=== PATIENT | male | born 1960 | race African-American/Black ===

== ENCOUNTER 2021-08-16 12:47 | Inpatient (IN) | payer SELFPAY ==
[2021-08-16] MEDS ORDERED: METHYLPREDNISOLONE 125 MG INJ ONE (13:23)
[2021-08-16] MEDS ORDERED: LEVALBUTEROL 1.25 MG/3 ML NEB ONE (13:23)
[2021-08-16 14:11] LABS: Absolute Lymphocytes (CBC) 1.5 K/uL (0.7-4.9); Lymphocytes % 24.4 % (15.3-44.8); MPV 8.9 fL (7.6-11.3); RBC Red Blood Cell Count 4.34 M/uL (4.33-5.43)
[2021-08-16 14:15] LABS: Protime INR 1.17
[2021-08-16 14:26] LABS: BUN Blood Urea Nitrogen 17 mg/dL (7-18); Bicarbonate 24 mmol/L (21-32); Glucose Level 124 mg/dL (74-106); Magnesium 2.3 mg/dL (1.8-2.4); NT PRO-BNP 5845 pg/mL (<125); Potassium 3.8 mmol/L (3.5-5.1); Sodium Level 140 mmol/L (136-145); Troponin (Emerg Dept Use Only) < 0.02 ng/mL (0.0-0.045)
--- NOTE | 2021-08-16 14:33 | RAD REPORT ---
EXAM DESCRIPTION: Deepika Single View08/16/2021 2:25 pm CLINICAL HISTORY: cough COMPARISON: none FINDINGS: Mild right basilar lung opacities. There may be a small pleural effusion Left lung appears clear of acute infiltrate. Heart is mildly to moderately enlarged IMPRESSION: Mild right pulmonary opacities may represent pneumonia
--- NOTE | 2021-08-16 15:14 | RAD REPORT ---
EXAM DESCRIPTION: CT - Chest For Pe Angio - 08/16/2021 2:47 pm CLINICAL HISTORY: sob COMPARISON: August 16, 2021 chest x-ray TECHNIQUE: Dynamically enhanced axial 3 mm thick images of the chest were obtained during administra tion of <100> mL Isovue 370 IV contrast. Coronal and oblique reconstruction images were generated and reviewed. Exam utilizes a protocol for optimal evaluation of pulmonary arterial tree. Maximum intensity projections 3D imaging was utilized All CT scans are performed using dose optimization technique as appropriate and may include automated exposure control or mA/KV adjustment according to patient size. FINDINGS: A pulmonary embolus is not seen. A thoracic aortic aneurysm is not noted. Mild mediastinal and hilar lymphadenopathy A pericardial effusion is not seen. Moderate loculated right pleural effusion. Right middle and right lower lobe opacities. Multiple sclerotic vertebral bodies. IMPRESSION: Negative for a pulmonary embolism. Moderate loculated right pleural effusion Right middle and right lower lobe opacities may represent pneumonia, atelectasis or mass. This should be followed until it has cleared Mild mediastinal and hilar lymphadenopathy Multiple sclerotic vertebral bodies may indicate metastatic disease or metabolic disturbance
[2021-08-16] MEDS ORDERED: CEFTRIAXONE 1000 MG/VIAL ONE (15:34)
[2021-08-16] MEDS ORDERED: NA CHLORIDE 0.9% 50 ML ONE (15:34)
--- NOTE | 2021-08-16 15:43 | ER ---
Nurse's Notes [facility] Name: David Felton Age: 61 yrs Sex: Male : 1960 Arrival Date: 08/16/2021 Time: 12:51 Bed 13 Private MD: Diagnosis: Pneumonia, unspecified organism;Pleural effusion, not elsewhere classified;Hypoxemia Presentation: 08/16 12:59 Chief complaint: Patient states: SOB, wheezing for 4 days. wanted him checked. No ll1 fever. Coronavirus screen: Vaccine status: Patient reports being unvaccinated. Client denies travel out of the [place] in the last 14 days. congestion, cough unrelated to allergies, shortness of breath, Client presents with at least one sign or symptom that may indicate coronavirus-19. Standard/surgical mask placed on the client. Ebola Screen: Patient denies travel to an Ebola-affected area in the 21 days before illness onset. Initial Sepsis Screen: Does the patient meet any 2 criteria? No. Patient's initial sepsis screen is negative. Does the patient have a suspected source of infection? Yes: Productive cough/pneumonia. Risk Assessment: Do you want to hurt yourself or someone else? Patient reports no desire to harm self or others. Onset of symptoms was August 12, 2021. 12:59 Method Of Arrival: Ambulatory ll1 12:59 Acuity: JERO 3 ll1 Triage Assessment: 19:10 General: Appears in no apparent distress. General: Behavior is calm, cooperative. mr2 Respiratory: Respiratory: No deficits noted. Historical: - Allergies: 13:00 No Known Allergies; ll1 - PMHx: 13:00 Hypertensive disorder; ll1 - PSHx: 13:00 diverticulitis SX; ll1 - Immunization history:: Client reports having NOT received the Covid vaccine. Flu vaccine is not up to date. - Social history:: Smoking status: Patient reports the use of cigarette tobacco products, cigars, . - Family history:: not pertinent. - Hospitalizations: : No recent hospitalization is reported. Screenin:41 Abuse screen: Denies threats or abuse. Nutritional screening: No deficits noted. tw2 Tuberculosis screening: No symptoms or risk factors identified. Fall Risk None identified. Assessment: 13:30 General: Appears in no apparent distress. comfortable, Behavior is calm, cooperative. eo2 Pain: Denies pain. Neuro: No deficits noted. Denies dizziness, headache. Cardiovascular: Denies chest pain, palpitations, Heart tones S1 S2. Respiratory: Airway is patent Respiratory effort is even, unlabored, Respiratory pattern is regular, Breath sounds with rhonchi bilaterally. Onset: The symptoms/episode began/occurred Pt reports SOB x 2-3 days. GI: Reports vomiting, vomiting after coughing today, otherwise presently denies N/V. : No signs and/or symptoms were reported regarding the genitourinary system. EENT: Reports COUGH X 3-4 DAYS- productive per pt. 13:30 Derm: Skin is pale, pt noted to be pale to the face. eo2 14:35 Cardiovascular: Rhythm is sinus rhythm. eo2 16:05 Reassessment: Patient states symptoms have not improved. increased work of breathing, eo2 increased rattling/wheezing, Osvaldo TRINIDAD at bedside and aware. 18:51 Reassessment: Pt sleeping, family at bedside informed of bed assignment. eo2 Vital Signs: 12:59 BP 189 / 92; Pulse 86; Resp 24; Temp 97.9; Pulse Ox 92% ; Height 6 ft. 2 in. (187.96 ll1 cm); Pain 0/10; 14:30 BP 170 / 74; Pulse 100; Resp 24; Pulse Ox 100% ; Pain 0/10; eo2 15:30 BP 173 / 74; Pulse 78; Resp 24; Pulse Ox 100% ; tw2 16:00 BP 170 / 77; Pulse 82; Resp 22; Pulse Ox 99% 2 lpm ; Pain 0/10; eo2 17:00 BP 175 / 81; Pulse 87; Resp 27; Pulse Ox 100% 2 lpm ; eo2 17:30 BP 160 / 75; Pulse 89; Resp 27; Pulse Ox 100% 2 lpm ; eo2 18:26 BP 151 / 67; Pulse 82; Resp 28; Pulse Ox 99% on 2 lpm NC; eo2 ED Course: 12:51 Patient arrived in ED. as 13:00 Triage completed. ll1 13:01 Arm band placed on. ll1 13:06 Patient placed in an exam room, on a stretcher. ll1 13:06 Bed in low position. Call light in reach. Adult w/ patient. environmental services associate on. Pulse tw2 ox on. NIBP on. 13:08 Daniel Garcia MD is Attending Physician. rn 13:40 EKG done, by ED staff, reviewed by Daniel Garcia MD. 3 13:45 First set of blood cultures drawn by me. Inserted saline lock: 20 gauge in left 3 antecubital area, using aseptic technique. Blood collected. 13:49 Initial lab(s) drawn, by me, sent to lab. Second set of blood cultures drawn by me. 3 14:07 Princess Gilmore, RN is Primary Nurse. eo2 14:25 XRAY CXR (1 view) In Process Unspecified. EDMS 14:[address] via wheelchair. eo2 14:48 CT Chest For PE Angio In Process Unspecified. EDMS 15:42 Lamonte Calabrese is Hospitalizing Provider. rn 16:05 Notified the admitting physician of abnormal vital signs. pt with increased work of eo2 breathing, Dr. Calabrese at bedside. 19:00 Report given to Asif ROMERO. eo2 19:10 No provider procedures requiring assistance completed. Patient admitted, IV remains in mr2 place. Administered Medications: 14:21 Drug: SOLU-Medrol (methylPrednisoLONE) 125 mg Route: IVP; Site: left antecubital; eo2 14:42 Follow up: Response: No adverse reaction eo2 14:21 Drug: Xopenex (levalbuterol) 1.25 mg Route: Inhalation; eo2 14:41 Follow up: Response: No adverse reaction eo2 16:00 Drug: Rocephin (cefTRIAXone) 1 grams Route: IV; Rate: calculated rate; Site: left eo2 antecubital; 16:30 Follow up: Response: No adverse reaction; IV Status: Completed infusion; IV Intake: 85ssey2 16:45 Drug: Zithromax (azithromycin) 500 mg Route: IVPB; Infused Over: 1 hrs; Site: left tw2 antecubital; 17:51 Follow up: Response: No adverse reaction; IV Status: Completed infusion; IV Intake: eo2 250ml Intake: 16:30 IV: 50ml; Total: 50ml. tw2 17:51 IV: 250ml; Total: 300ml. eo2 Outcome: 15:42 Decision to Hospitalize by Provider. rn 19:11 Admitted to Med/surg mr2 19:11 Condition: stable 19:11 Instructed on the need for admit. 19:34 Patient left the ED. mr2 Signatures: Dispatcher [employer] EDTrudy Tee Roman, MD MD rn Sultana Ozuna RN RN tw2 Grace Hadley [facility] sAhly Ga RN RN ll1 Asif Corona RN RN mr2 Princess Gilmore RN RN eo2 Corrections: (The following items were deleted from the chart) 13:06 12:59 BP 189 / 92; Pulse 86bpm; Resp 24bpm; Pulse Ox 94%; Temp 97.9F; Height 6 ft. 2 ll1 in.; Pain 0/10; ll1 14:30 14:22 General: eo2 eo2 17:02 15:30 BP 173 / 74; Pulse 78bpm; Resp 17bpm; Pulse Ox 100%; tw2 tw2 18:55 18:26 BP 103 / 63; Pulse 76bpm; Resp 24bpm; Pulse Ox 100% 2 lpm Nasal Cannula; tw2 eo2
--- NOTE | 2021-08-16 15:43 | EDPHYS ---
Physician Documentation [facility] Name: David Felton Age: 61 yrs Sex: Male : 1960 Arrival Date: 08/16/2021 Time: 12:51 Bed 13 Private MD: ED Physician Daniel Garcia HPI: 08/16 13:17 This 61 yrs old Black Male presents to ER via Ambulatory with complaints of Shortness rn Of Breath. 15:26 The patient has shortness of breath at rest. Onset: The symptoms/episode began/occurred rn 3 day(s) ago. Duration: The symptoms are continuous. The patient's shortness of breath is aggravated by light activity, is alleviated by nothing. Associated signs and symptoms: Pertinent positives: productive cough, Pertinent negatives: chest pain, fever, hemoptysis. Severity of symptoms: At their worst the symptoms were moderate in the emergency department the symptoms are unchanged. The patient has not experienced similar symptoms in the past. The patient has not recently seen a physician. Pt reports cough and sob for 3 days, no fever, + worse with exertion. + smoker. No diagnosis of COPD or CHF. No known sick contacts. No congestion. Not COVID vaccinated. . Historical: - Allergies: 13:00 No Known Allergies; ll1 - PMHx: 13:00 Hypertensive disorder; ll1 - PSHx: 13:00 diverticulitis SX; ll1 - Immunization history:: Client reports having NOT received the Covid vaccine. Flu vaccine is not up to date. - Social history:: Smoking status: Patient reports the use of cigarette tobacco products, cigars, . - Family history:: not pertinent. - Hospitalizations: : No recent hospitalization is reported. ROS: 15:26 Constitutional: Negative for fever, chills Eyes: Negative for injury, pain, redness, rn and discharge, Neck: Negative for injury, pain, and swelling, Cardiovascular: Negative for chest pain, palpitations, and edema, Respiratory: + cough and sob Abdomen/GI: Negative for abdominal pain, nausea, vomiting, diarrhea, and constipation, Back: Negative for injury and pain, : Negative for injury, bleeding, discharge, and swelling, MS/Extremity: Negative for injury and deformity, Skin: Negative for injury, rash, and discoloration, Neuro: Negative for headache, weakness, numbness, tingling, and seizure. Exam: 15:26 Constitutional: Thin male, + mild tachypnea Head/Face: Normocephalic, atraumatic. rn Eyes: Periorbital areas with no swelling, redness, or edema. ENT: dry MM, no stridor Cardiovascular: Tachycardic, regular, no pulse deficit Respiratory: + mild to mderate tachypnea, no retractions, coarse bilateral breath sounds Abdomen/GI: soft, non-tender Skin: Warm, dry MS/ Extremity: Pulses equal, no cyanosis. Neuro: Awake and alert, GCS 15 Vital Signs: 12:59 BP 189 / 92; Pulse 86; Resp 24; Temp 97.9; Pulse Ox 92% ; Height 6 ft. 2 in. (187.96 ll1 cm); Pain 0/10; 14:30 BP 170 / 74; Pulse 100; Resp 24; Pulse Ox 100% ; Pain 0/10; eo2 15:30 BP 173 / 74; Pulse 78; Resp 24; Pulse Ox 100% ; tw2 16:00 BP 170 / 77; Pulse 82; Resp 22; Pulse Ox 99% 2 lpm ; Pain 0/10; eo2 17:00 BP 175 / 81; Pulse 87; Resp 27; Pulse Ox 100% 2 lpm ; eo2 17:30 BP 160 / 75; Pulse 89; Resp 27; Pulse Ox 100% 2 lpm ; eo2 18:26 BP 151 / 67; Pulse 82; Resp 28; Pulse Ox 99% on 2 lpm NC; eo2 MDM: 13:08 Patient medically screened. rn 15:39 Differential diagnosis: Anemia Bronchitis Chronic Obstructive Pulmonary Disease rn Myocardial Infarction pneumonia, Pneumothorax. 15:40 Data reviewed: vital signs, nurses notes, lab test result(s), EKG, radiologic studies, rn CT scan, plain films, and as a result, I will admit patient. Data interpreted: Pulse oximetry: on room air is 90 %. Interpretation: hypoxia. Plan: O2 by NC applied. Counseling: I had a detailed discussion with the patient and/or guardian regarding: the historical points, exam findings, and any diagnostic results supporting the discharge/admit diagnosis, lab results, radiology results, the need for further work-up and treatment in the hospital. Admission orders: after a detailed discussion of the patient's condition and case, the admit orders are written by me. ED course: Consulted with Dr. Humphries to make sure he was comfortable keeping patient with multifocal pneumonia, possible lung mass and loculated effusion, states okay keeping here as patient does not seem septic and does not think needs immediate intervention. Will admit to hospitalist service. Spoke with Dr. Calabrese for admission. 08/16 13:14 Order name: BMP rn 08/16 13:14 Order name: Blood Culture Adult (2) rn 08/16 13:14 Order name: CBC with Diff; Complete Time: 14:32 rn 08/16 13:14 Order name: D-Dimer; Complete Time: 14:32 rn 08/16 13:14 Order name: Magnesium; Complete Time: 14:32 rn 08/16 13:14 Order name: NT PRO-BNP; Complete Time: 14:32 rn 08/16 13:14 Order name: PT-INR; Complete Time: 14:32 rn 08/16 13:14 Order name: Ptt, Activated; Complete Time: 14:32 rn 08/16 13:14 Order name: Troponin (emerg Dept Use Only); Complete Time: 14:32 rn 08/16 13:15 Order name: Basic Metabolic Panel; Complete Time: 14:32 EDMA 08/16 13:17 Order name: Procalcitonin rn 08/16 13:17 Order name: Procalcitonin EDMA 08/16 13:14 Order name: XRAY CXR (1 view); Complete Time: 15:17 rn 15 13:14 Order name: EKG; Complete Time: 13:15 rn 08/16 13:14 Order name: Cardiac monitoring; Complete Time: 13:59 rn 08/16 13:14 Order name: EKG - Nurse/Tech; Complete Time: 13:58 rn 15 13:14 Order name: IV Saline Lock; Complete Time: 13:58 rn 15 13:14 Order name: Labs collected and sent; Complete Time: 13:58 rn 08/16 13:14 Order name: O2 Per Protocol; Complete Time: 13:58 rn 08/16 13:14 Order name: O2 Sat Monitoring; Complete Time: 13:59 rn 15 14:34 Order name: CT Chest For PE Angio; Complete Time: 15:17 rn 08/16 15:33 Order name: COVID-19/FLU A+B EDMA 08/16 17:00 Order name: Urine Dipstick-Ancillary EDMS Administered Medications: 14:21 Drug: SOLU-Medrol (methylPrednisoLONE) 125 mg Route: IVP; Site: left antecubital; eo2 14:42 Follow up: Response: No adverse reaction eo2 14:21 Drug: Xopenex (levalbuterol) 1.25 mg Route: Inhalation; eo2 14:41 Follow up: Response: No adverse reaction eo2 16:00 Drug: Rocephin (cefTRIAXone) 1 grams Route: IV; Rate: calculated rate; Site: left eo2 antecubital; 16:30 Follow up: Response: No adverse reaction; IV Status: Completed infusion; IV Intake: [id number] 16:45 Drug: Zithromax (azithromycin) 500 mg Route: IVPB; Infused Over: 1 hrs; Site: left tw2 antecubital; 17:51 Follow up: Response: No adverse reaction; IV Status: Completed infusion; IV Intake: eo2 250ml Disposition Summary: 08/16/21 15:42 Hospitalization Ordered Hospitalization Status: Inpatient Admission rn Provider: Lamonte Calabrese rn Location: Telemetry/[facility]Sur (Inpatient) rn Condition: Stable rn Problem: new rn Symptoms: have improved rn Bed/Room Type: Standard rn Room Assignment: 410(08/16/21 18:25) ss Diagnosis - Pneumonia, unspecified organism rn - Pleural effusion, not elsewhere classified rn - Hypoxemia rn Forms: - Medication Reconciliation Form rn - SBAR form rn Signatures: Dispatcher [employer] EDMA Daniel Garcia MD MD rn Smirch, Shelby, RN RN ss Sultana Ozuna RN RN tw2 Ashly Ga RN RN ll1 Princess Gilmore, NICK RN eo2 Corrections: (The following items were deleted from the chart) 15:33 13:15 SARS-COV-2 RT PCR+MOL.LAB.BRZ ordered. EDMS EDMS 15:33 13:15 Influenza Screen (A \T\ B)+BA.LAB.BRZ ordered. EDMS EDMS 18:25 15:42 rn ss
[2021-08-16] MEDS ORDERED: AZITHROMYCIN 500 MG INJ IVPB ONE (16:10)
[2021-08-16] MEDS ORDERED: NA CHLORIDE 0.9% 250 ML ONE (16:10)
[2021-08-16 16:16] LABS: SARS-COV-2 RT PCR NEGATIVE (NEGATIVE)
--- NOTE | 2021-08-16 16:44 | P.HP ---
Certification for Inpatient Patient admitted to: Inpatient With expected LOS: >2 Midnights Practitioner: I am a practitioner with admitting privileges, knowledge of patient current condition, hospital course, and medical plan of care. Services: Services provided to patient in accordance with Admission requirements found in Title 42 Section 412.3 of the Code of Federal Regulations Patient History Date of Service: 08/16/21 Reason for admission: Shortness of breath History of Present Illness: 61-year-old gentleman with a remote history of noninsulin-dependent diabetes presented to the emergency department due to progressive shortness of breath and wheezing. Patient reports shortness of breath onset 1 week ago. His spouse told him to come to the ED to find out why he is wheezing. No reported fever. Patient endorsed nonproductive cough, no chest pain, no hemoptysis. He denies any weight loss. CT chest done in the emergency department demonstrate multiple dense opacities in the bilateral lobes who could be pneumonia, lung mass not excluded. CT chest also demonstrates loculated pleural effusion. Patient given breathing treatment and IV steroid in the ED, pulmonology-Dr. Humphries informed recommended admission here for further management. - Past Medical/Surgical History -: Prior history of diabetes-patient states his diabetes has resolved. -: Colon resection-unknown reason. - Family History Mother -: Heart disease, Stroke - Social History Smoking Status: Current every day smoker (Smokes cigar. Used to smoke cigarette and 1 pack would last 3 days.) Alcohol use: Yes Place of Residence: Home Review of Systems Other: Patient denies any abdominal pain, no headache, no nausea or vomiting, no problem with urination. Except as documented, all other systems reviewed and negative. Physical Examination - Physical Exam General: Alert, In no apparent distress, Oriented x3 HEENT: Mucous membr. moist/pink, Sclerae nonicteric Neck: Supple, JVD not distended Respiratory: Normal air movement, Crackles/rales (Bilateral), Expiratory wheezes (Mild scattered wheezes.) Cardiovascular: Regular rate/rhythm, Edema (1+ bilateral lower extremity edema), Systolic murmur Capillary refill: <2 Seconds Gastrointestinal: Normal bowel sounds, Soft and benign, Non-distended, No tenderness Musculoskeletal: No clubbing, No tenderness Integumentary: No rashes, No erythema Neurological: Normal speech, Normal strength at 5/5 x4 extr, Cranial nerves 3-12 intact Lymphatics: No axilla or inguinal lymphadenopathy - Studies Laboratory Data (last 24 hrs) 08/16/21 13:49: PT 13.5 H, INR 1.17, APTT 40.6 H 08/16/21 13:49: WBC 6.10, Hgb 11.6 L, Hct 36.0 L, Plt Count 209 08/16/21 13:49: Sodium 140, Potassium 3.8, BUN 17, Creatinine 1.42 H, Glucose 124 H, Magnesium 2.3 Assessment and Plan - Problems (Diagnosis) (1) Pneumonia Current Visit: Yes Status: Acute (2) Pleural effusion Current Visit: Yes Status: Acute (3) Anemia Current Visit: Yes Status: Acute (4) Acute renal failure Current Visit: Yes Status: Acute (5) Peripheral edema Current Visit: Yes Status: Acute - Plan Admit to the medical floor. Patient with dense infiltrates, lung malignancy not ruled out. Patient reports history of colon lesions. He underwent colon resection about 30 years ago. He stated he did not followed up after the colon resection as he should. High suspicion for malignancy. Start IV antibiotics-Zosyn and Levaquin Consult to pulmonary Considering US guided diagnostic thoracentesis. Pain management as needed Bronchodilators Chest physiotherapy. Trial of IV Lasix. Check LFT. - Advance Directives Does patient have a Living Will: No Does patient have a Durable POA for Healthcare: No
[2021-08-16 17:00] LABS: Urine Blood 1+ (Negative); Urine Glucose Negative (Negative); Urine Protein 3+ (Negative)
[2021-08-16] MEDS ORDERED: Levofloxacin 750mg IV 750 MG/150 ML BAG IV SCH ×2 (20:00→20:08)
[2021-08-16] MEDS ORDERED: NA CHLORIDE 0.9% 1,000 ML IV SCH (20:08)
[2021-08-16] MEDS ORDERED: MORPHINE 2 MG/ML SYR IV PRN (20:08)
[2021-08-16] MEDS ORDERED: ONDANSETRON 4 MG/2 ML VIAL IV PRN (20:08)
[2021-08-16] MEDS: INSULIN -REGULAR HUMAN 50 UNIT/0.5 ML ML SQ SCH ×2 (20:08→21:00)
[2021-08-16] MEDS ORDERED: ACETAMINOPHEN 500 MG TAB PO PRN (20:08)
[2021-08-16 20:25] VITALS: BMI 25.2
[2021-08-16] MEDS: IPRATROPIUM BROM 0.5MG/2.5ML NEB SCH ×2 (20:25→23:15)
[2021-08-16 21:03] LABS: Albumin 2.6 g/dL (3.4-5.0); Bilirubin Total 0.2 mg/dL (0.2-1.0); Potassium 3.6 mmol/L (3.5-5.1); Protein, Total 7.1 g/dL (6.4-8.2)
[2021-08-16] MEDS ORDERED: NA CHLORIDE 0.9% 100 ML ONE (22:12)
[2021-08-16] MEDS ORDERED: PIPERACIL/TAZO 3.375 GM VIAL IV ONE (22:14)
[2021-08-16] MEDS: PIPER TAZO 3.375 GM in NA CHLORIDE 0.9% 100 ML IV SCH (22:18)
[2021-08-16] MEDS: ALBUTEROL 2.5 MG/3 ML NEB SOL NEB PRN (23:15)
[2021-08-17] MEDS: PIPER TAZO 3.375 GM in NA CHLORIDE 0.9% 100 ML IV SCH ×2 (01:00→10:22)
[2021-08-17] MEDS: ALBUTEROL 2.5 MG/3 ML NEB SOL NEB PRN (03:45)
[2021-08-17] MEDS: IPRATROPIUM BROM 0.5MG/2.5ML NEB SCH ×3 (03:45→12:00)
[2021-08-17 04:16] LABS: Absolute Lymphocytes (CBC) 0.4 K/uL (0.7-4.9); Hematocrit 33.2 % (39.6-49.0); Lymphocytes % 7.1 % (15.3-44.8); MPV 9.2 fL (7.6-11.3); RBC Red Blood Cell Count 4.01 M/uL (4.33-5.43)
[2021-08-17 04:34] LABS: Magnesium 1.9 mg/dL (1.8-2.4); Phosphorus 3.5 mg/dL (2.5-4.9)
[2021-08-17 05:03] LABS: Blood Morphology Comment NOTED (NOT SEEN); Burr Cells 1+; Platelet Estimate ADEQ
[2021-08-17] MEDS ORDERED: HYDRALAZINE HCL 20 MG/ML VIAL IV PRN (07:25)
[2021-08-17] MEDS: INSULIN -REGULAR HUMAN 50 UNIT/0.5 ML ML SQ SCH ×4 (07:30→20:59)
[2021-08-17] MEDS ORDERED: INFLUENZA VACCINE (for 6+ mo) 0.5 ML DOSE IMVAC ONE (08:00)
[2021-08-17] MEDS ORDERED: POTASSIUM CL SA 10 MEQ TAB PO ONE (09:00)
[2021-08-17] MEDS: AMLODIPINE 10 MG TAB PO SCH (10:25)
[2021-08-17] MEDS: ENOXAPARIN 40 MG/0.4 ML SQ SCH (10:25)
--- NOTE | 2021-08-17 11:39 | P.PN ---
Subjective Date of Service: 08/17/21 Chief Complaint: Shortness of breath Patient reports improvement in his shortness of breath. He was seen comfortable on 2 L of oxygen by nasal cannula. No fever. Physical Examination - Vital Signs Temperature: 97.5 F Blood Pressure: 157/73 Pulse: 89 Respirations: 20 Pulse Ox (%): 96 - Studies Laboratory Data (last 24 hrs) 08/16/21 13:49: PT 13.5 H, INR 1.17, APTT 40.6 H 08/16/21 13:49: WBC 6.10, Hgb 11.6 L, Hct 36.0 L, Plt Count 209 08/16/21 13:49: Sodium 140, Potassium 3.8, BUN 17, Creatinine 1.42 H, Glucose 124 H, Magnesium 2.3 Assessment And Plan - Current Problems (Diagnosis) (1) Pneumonia Current Visit: Yes Status: Acute (2) Pleural effusion Current Visit: Yes Status: Acute (3) Anemia Current Visit: Yes Status: Acute (4) Acute renal failure Current Visit: Yes Status: Acute (5) Peripheral edema Current Visit: Yes Status: Acute - Plan Physical examination General: Alert, In no apparent distress. Neck: Supple, JVD not distended Respiratory: Normal air movement, Crackles/rales (Bilateral). Cardiovascular: Regular rate/rhythm, Edema (1+ bilateral lower extremity edema), Systolic murmur Capillary refill: <2 Seconds Gastrointestinal: Normal bowel sounds, Soft and benign, Non-distended, No tenderness Integumentary: No rashes, No erythema Neurological: Normal speech, Normal strength at 5/5 x4 extr, Cranial nerves 3-12 intact Plan: Admit to the medical floor. Patient with dense infiltrates, lung malignancy not ruled out. High suspicion for malignancy. Continue IV antibiotics-Zosyn and Levaquin Consult to pulmonary US guided diagnostic thoracentesis ordered. Pleural fluid status Pain management as needed Bronchodilators Chest physiotherapy. IV Lasix.
--- NOTE | 2021-08-17 12:15 | P.CNS ---
Date of Consult: 08/17/21 Reason for Consult: Respiratory distress septic shock Chief Complaint: Shortness of breath History of Present Illness: Patient is 61 years of age became acutely ill more short of breath in the last week or so no prior history of cardiopulmonary problems apart from hypertension is doing better have a loculated effusion on the right side no active evidence of clinical sepsis he denies any urinary or abdominal complain does not have a cough or chest pain Allergies No Known Allergies Allergy (Unverified 08/16/21 20:01) Home Medications: NK [No Home Meds] 08/16/21 - Past Medical/Surgical History Diabetic: No -: Prior history of diabetes-patient states his diabetes has resolved. -: Colon resection-unknown reason. - Family History Mother Medical History: Heart disease, Stroke - Social History Alcohol use: No CD- Drugs: No Caffeine use: No Place of Residence: Home Review of Systems 10-point ROS is otherwise unremarkable Respiratory: Shortness of Breath Physical Examination Temp Pulse Resp BP Pulse Ox 97.5 F 89 20 157/73 H 96 08/17/21 11:39 08/17/21 11:39 08/17/21 11:39 08/17/21 11:39 08/17/21 11:39 General: Alert, Oriented x3 HEENT: Atraumatic Neck: Supple Respiratory: Crackles/rales, Expiratory wheezes Cardiovascular: No edema, Normal S1 S2, Other (Neck venous pressure is elevated) Gastrointestinal: Normal bowel sounds, Soft and benign Laboratory Data (last 24 hrs) 08/16/21 13:49: PT 13.5 H, INR 1.17, APTT 40.6 H 08/16/21 13:49: WBC 6.10, Hgb 11.6 L, Hct 36.0 L, Plt Count 209 08/16/21 13:49: Sodium 140, Potassium 3.8, BUN 17, Creatinine 1.42 H, Glucose 124 H, Magnesium 2.3 - Problems (1) Congestive heart failure Current Visit: Yes Status: Acute Plan: Strongly suspect patient has congestive heart failure does have a small loculated effusion symptoms are acute is no evidence of sepsis or pneumonia white count is normal BNP is very elevated renal function is abnormal patient has a history of hypertension I suggest diuresis for now increase Lasix as tolerated echocardiogram is pending DC Levaquin and Zosyn start him on p.o. Augmentin currently doing well off oxygen thoracentesis not indicated right now not sure is taking any medication at home is being treated for hypertension Qualifiers: Heart failure chronicity: unspecified
[2021-08-17] MEDS ORDERED: FUROSEMIDE 20 MG/ 2ML VIAL IV SCH (12:17)
[2021-08-17] MEDS ORDERED: IPRATROPIUM BROM 0.5MG/2.5ML NEB PRN (12:24)
[2021-08-17] MEDS: FUROSEMIDE 40 MG/4 ML VIAL IV SCH (14:17)
[2021-08-17] MEDS ORDERED: Levofloxacin 750mg IV 750 MG/150 ML BAG IV SCH ×2 (20:00→21:00)
[2021-08-17] MEDS: AMOX/K CLAV 875 MG TAB PO SCH (20:58)
[2021-08-18 05:41] LABS: Potassium 3.9 mmol/L (3.5-5.1)
[2021-08-18] MEDS ORDERED: POTASSIUM CL SA 10 MEQ TAB PO ONE (07:03)
[2021-08-18] MEDS: INSULIN -REGULAR HUMAN 50 UNIT/0.5 ML ML SQ SCH ×4 (07:30→20:06)
--- NOTE | 2021-08-18 07:58 | ECHO ---
HEIGHT: 6 ft 2 in WEIGHT: 196 lb 11.2 oz DATE OF STUDY: 08/17/[address]: artur álvarez 2-DIMENSIONAL: YES M.MODE: YES DOPPLER: YES COLOR FLOW: YES TDS: NO PORTABLE: NO DEFINITY: NO BUBBLE STUDY: NO DIAGNOSIS: MALIGNANT HYPERTENSION CARDIAC HISTORY: CATHERIZATION: NO SURGERY: NO PROSTHETIC VALVE: NO PACEMAKER: NO MEASUREMENTS (cm) DIASTOLIC (NORMALS) SYSTOLIC (NORMALS) IVSd 1.5 (0.6-1.2) LA Diam 3.9 (1.9-4.0) LVEF 64% LVIDd 4.8 (3.5-5.7) LVIDs 3.1 (2.0-3.5) %FS 35% LVPWd 1.2 (0.6-1.2) Ao Diam 2.9 (2.0-3.7) 2 DIMENSIONAL ASSESSMENT: RIGHT ATRIUM: NORMAL LEFT ATRIUM: NORMAL RIGHT VENTRICLE: NORMAL LEFT VENTRICLE: NORMAL TRICUSPID VALVE: MITRAL VALVE: PULMONIC VALVE: NORMAL AORTIC VALVE: PERICARDIAL EFFUSION: NONE AORTIC ROOT: NORMAL LEFT VENTRICULAR WALL MOTION: NORMAL DOPPLER/COLOR FLOW: SEE BELOW COMMENTS: NORMAL LEFT VENTRICULAR EJECTION FRACTION 60-65%. NORMAL WALL MOTION. MODERATE TO SEVERE MITRAL REGURGITATION AND LIKELY SEVERE MITRAL STENOSIS, RECOMMEND RONI. MILD AORTIC REGURGITATION WITH MODERATE CALCIFICATION OF THE VALVES. TECHNOLOGIST: Tyler LACEY
[2021-08-18] MEDS: AMOX/K CLAV 875 MG TAB PO SCH ×3 (08:09→20:08)
[2021-08-18] MEDS: FUROSEMIDE 40 MG/4 ML VIAL IV SCH ×2 (08:09→17:03)
[2021-08-18] MEDS: AMLODIPINE 10 MG TAB PO SCH (08:09)
[2021-08-18] MEDS: ENOXAPARIN 40 MG/0.4 ML SQ SCH (08:10)
--- NOTE | 2021-08-18 08:46 | RAD REPORT ---
EXAM DESCRIPTION: US - Renal Ultrasound-Complete - 08/18/2021 12:48 am CLINICAL HISTORY: Renal failure Acute renal failure, flank pain COMPARISON: Chest For Pe Angio dated 08/16/2021 FINDINGS: Both kidneys are echogenic. The right kidney measures 9.8 x 5.6 x 4.7 cm. No hydronephrosis, focal mass or perinephric fluid. The left kidney measures 9.9 x 5.3 x 4.9 cm.. No hydronephrosis, focal mass or perinephric fluid. The urinary bladder is incompletely distended without gross abnormality seen. IMPRESSION: Echogenic kidneys bilaterally most compatible with medical renal disease.
--- NOTE | 2021-08-18 10:33 | RAD REPORT ---
EXAM DESCRIPTION: US - Thoracentesis w/ US Guide - 08/18/2021 9:43 am CLINICAL HISTORY: Pleural effusion. Loculated right pleural effusion COMPARISON: Renal Ultrasound-Complete dated 08/18/2021; Chest For Pe Angio dated 08/16/2021; Chest S [place] dated 08/16/2021 FINDINGS: Preoperative diagnosis: Right pleural effusion. Post operative diagnosis: Same Conscious Sedation: None. Estimated blood loss: Minimal Specimens:A small volume of fluid was sent for requested lab studies. The patient was placed in the upright recumbent position and the right posterior chest was prepped an d draped in the usual sterile fashion. 1% Lidocaine was infiltrated into the soft tissues for local anesthesia. Under sonographic guidance, a thoracentesis needle and 6 Indonesian catheter was advanced in to the right pleural space. Approximately 1300 cc yellow fluid was aspirated. Samples were sent to pa thology for requested analysis. The patient tolerated the procedure without immediate complication an d transferred to the floor in stable condition. IMPRESSION: Successful ultrasound-guided thoracentesis as detailed.
[2021-08-18 12:30] LABS: Body Fluid WBC 1015 /mm^3
[2021-08-18 12:31] LABS: Appearance SLT. TURBID (CLEAR); Body Fluid Source PLEURAL; Color of fluid Yellow (COLORLESS)
--- NOTE | 2021-08-18 16:19 | P.PN ---
Subjective Date of Service: 08/18/21 Chief Complaint: Shortness of breath Patient states he is doing much better today. He is maintained on 2 L oxygen by nasal cannula with good oxygen saturation. Physical Examination - Vital Signs Temperature: 97.5 F Blood Pressure: 175/73 Pulse: 85 Respirations: 18 Pulse Ox (%): 100 Assessment And Plan - Current Problems (Diagnosis) (1) Pneumonia Current Visit: Yes Status: Acute (2) Pleural effusion Current Visit: Yes Status: Acute (3) Anemia Current Visit: Yes Status: Acute (4) Acute renal failure Current Visit: Yes Status: Acute (5) Peripheral edema Current Visit: Yes Status: Acute - Plan Physical examination General: Alert, In no apparent distress. Neck: Supple, JVD not distended Respiratory: Normal air movement, Crackles/rales (Bilateral). Cardiovascular: Regular rate/rhythm, Edema (1+ bilateral lower extremity edema), Systolic murmur Capillary refill: <2 Seconds Gastrointestinal: Normal bowel sounds, Soft and benign, Non-distended, No tenderness Integumentary: No rashes, No erythema Neurological: Normal speech, Normal strength at 5/5 x4 extr, Cranial nerves 3-12 intact Plan: Patient with dense infiltrates, lung malignancy not ruled out. High suspicion for malignancy. Status post US thoracentesis. Pleural fluid is turbid with high WBC count. This could be parapneumonic effusion. Continue IV antibiotics-Zosyn and Levaquin Pulmonary input appreciated. Patient symptoms appear to be related to CHF rather than pneumonia. Echocardiogram reports severe mitral regurgitation and possible severe mitral stenosis. Cardiology recommend RONI. Cardiology consult requested. Follow-up pleural fluid studies. Continue IV Lasix. Continue amlodipine for hypertension Pain management as needed Bronchodilators Chest physiotherapy.
[2021-08-19 05:14] LABS: Absolute Lymphocytes (CBC) 1.4 K/uL (0.7-4.9); Hematocrit 38.7 % (39.6-49.0); MPV 9.3 fL (7.6-11.3); RBC Red Blood Cell Count 4.63 M/uL (4.33-5.43)
[2021-08-19 05:30] LABS: Albumin 2.8 g/dL (3.4-5.0); Phosphorus 2.9 mg/dL (2.5-4.9); Potassium 4.1 mmol/L (3.5-5.1)
[2021-08-19] MEDS: INSULIN -REGULAR HUMAN 50 UNIT/0.5 ML ML SQ SCH ×4 (07:30→21:00)
[2021-08-19] MEDS: ENOXAPARIN 40 MG/0.4 ML SQ SCH (08:04)
[2021-08-19] MEDS: FUROSEMIDE 40 MG/4 ML VIAL IV SCH ×2 (08:05→16:50)
[2021-08-19] MEDS: AMOX/K CLAV 875 MG TAB PO SCH ×2 (08:06→21:24)
[2021-08-19] MEDS: AMLODIPINE 10 MG TAB PO SCH (08:06)
--- NOTE | 2021-08-19 13:07 | P.PN ---
Subjective Date of Service: 08/19/21 Chief Complaint: Shortness of breath Thoracentesis yesterday, about 1300 ml of turbid fluid drained. He is maintained on 2 L oxygen by nasal cannula with good oxygen saturation. Physical Examination - Vital Signs Temperature: 98.7 F Blood Pressure: 144/65 Pulse: 87 Respirations: 18 Pulse Ox (%): 100 Assessment And Plan - Current Problems (Diagnosis) (1) Pneumonia Current Visit: Yes Status: Acute (2) Pleural effusion Current Visit: Yes Status: Acute (3) Anemia Current Visit: Yes Status: Acute (4) Acute renal failure Current Visit: Yes Status: Acute (5) Peripheral edema Current Visit: Yes Status: Acute - Plan Physical examination General: Alert, In no apparent distress. Neck: Supple, JVD not distended Respiratory: Normal air movement, Crackles/rales (Bilateral). Cardiovascular: Regular rate/rhythm, Edema (1+ bilateral lower extremity edema), Systolic murmur Capillary refill: <2 Seconds Gastrointestinal: Normal bowel sounds, Soft and benign, Non-distended, No tenderness Integumentary: No rashes, No erythema Neurological: Normal speech, Normal strength at 5/5 x4 extr, Cranial nerves 3-12 intact Plan: Patient with dense infiltrates, lung malignancy not ruled out. High suspicion for malignancy. Status post US thoracentesis. Pleural fluid is turbid with high WBC count. This could be parapneumonic effusion. Continue IV antibiotics-Zosyn and Levaquin. Patient has clinically improved. Repeat chest x-ray to reassess whether the infiltrates are clearing up. Pulmonary input appreciated. Patient symptoms appear to be related to CHF rather than pneumonia. Echocardiogram reports severe mitral regurgitation and possible severe mitral stenosis. Cardiology recommend RONI. Cardiology consulted Pleural fluid culture is pending. Pleural fluid appears to be exudative and could represent parapneumonic effusion. Continue IV Lasix. Continue amlodipine for hypertension Pain management as needed Bronchodilators Chest physiotherapy.
--- NOTE | 2021-08-19 14:58 | RAD REPORT ---
EXAM DESCRIPTION: RAD - Chest Single View - 08/19/2021 2:08 pm CLINICAL HISTORY: Follow-up pneumonia and pleural effusion Chest pain. COMPARISON: Chest Single View dated 08/16/2021; Thoracentesis w/ US Guide dated 08/18/2021 FINDINGS: Portable technique limits examination quality. The right pleural of has moderately diminished in size since prior study. Right basilar lung opacitie s are again seen, mildly improved. No pneumothorax is seen. Bilateral interstitial lung opacities alejandra ear essentially stable since 08/16/2021. Heart size is mildly prominent.
[2021-08-20 06:39] LABS: Phosphorus 3.6 mg/dL (2.5-4.9); Potassium 3.9 mmol/L (3.5-5.1)
[2021-08-20] MEDS: INSULIN -REGULAR HUMAN 50 UNIT/0.5 ML ML SQ SCH ×2 (07:30→11:30)
[2021-08-20] MEDS: AMLODIPINE 10 MG TAB PO SCH (08:51)
[2021-08-20] MEDS: FUROSEMIDE 40 MG/4 ML VIAL IV SCH (08:51)
[2021-08-20] MEDS: ENOXAPARIN 40 MG/0.4 ML SQ SCH (08:51)
[2021-08-20] MEDS: AMOX/K CLAV 875 MG TAB PO SCH (08:51)
[2021-08-20 08:55] VITALS: O2SAT 100
[2021-08-20] MEDS ORDERED: POTASSIUM CL SA 10 MEQ TAB PO ONE (09:00)
--- NOTE | 2021-08-20 11:29 | P.DS ---
Admission Date: 08/16/21 Discharge Date: 08/20/21 Disposition: ROUTINE DISCHARGE Discharge Condition: FAIR Reason for Admission: Shortness of breath Consultations: Pulmonology-Dr. Humphries Cardiology-Dr. Graves - Problems (1) Pneumonia Current Visit: Yes Status: Acute (2) Pleural effusion Current Visit: Yes Status: Acute (3) Anemia Current Visit: Yes Status: Acute (4) Peripheral edema Current Visit: Yes Status: Acute (5) Chronic kidney disease, stage III (moderate) Current Visit: Yes Status: Acute (6) Acute diastolic heart failure Current Visit: Yes Status: Acute Brief History of Present Illness: 61-year-old gentleman with a remote history of noninsulin-dependent diabetes presented to the emergency department due to progressive shortness of breath and wheezing. Patient reports shortness of breath onset 1 week ago. His spouse told him to come to the ED to find out why he is wheezing. No reported fever. Patient endorsed nonproductive cough, no chest pain, no hemoptysis. He denies any weight loss. CT chest done in the emergency department demonstrate multiple dense opacities in the bilateral lobes who could be pneumonia, lung mass not excluded. CT chest also demonstrates loculated pleural effusion. Patient given breathing treatment and IV steroid in the ED, pulmonology-Dr. Humphries informed recommended admission here for further management. Hospital Course: Patient with dense infiltrates, lung malignancy not ruled out. Patient admitted to the medical floor and treated with aggressive IV antibiotic therapy-Zosyn and Levaquin and placed on oxygen. High suspicion for malignancy. Status post US thoracentesis. About 1300ml fluid was drained. Pleural fluid was turbid with high WBC count. This could be parapneumonic effusion. Culture of pleural fluid yielded no growth. Seen by pulmonary who suspected patient symptoms to be related to CHF rather than pneumonia. Echocardiogram done reports severe mitral regurgitation and possible severe mitral stenosis. Cardiology recommend RONI. Patient seen by Dr. Graves who recommend outpatient follow-up for arrangement for RONI. Patient also treated with IV Lasix for acute diastolic heart failure. His blood pressure was elevated and this was treated with amlodipine. Patient also treated with bronchodilators. Patient weaned off oxygen to room air. Renal function did not change much during the hospital stay. It appears patient has chronic kidney disease stage III. He has clinically improved and deemed stable for discharge. I emphasized to him the need to follow-up with Dr. Byers for arrangement for RONI and the need to follow with Dr. Humphries as an outpatient for repeat imaging to document clearance of the lung infiltrates and further evaluation for cancer if the infiltrate does not clear up. Patient voiced understanding. Vital Signs/Physical Exam: Temp Pulse Resp BP Pulse Ox 98.4 F 84 18 147/68 H 97 08/20/21 08:00 08/20/21 08:00 08/20/21 08:00 08/20/21 08:00 08/20/21 08:00 General: Alert, In no apparent distress, Oriented x3 HEENT: Normocephalic, Mucous membr. moist/pink, Sclerae nonicteric Neck: Supple, JVD not distended Respiratory: Clear to auscultation bilaterally, Normal air movement Cardiovascular: No edema, Regular rate/rhythm, Normal S1 S2, Systolic murmur Gastrointestinal: Normal bowel sounds, Soft and benign, Non-distended, No tenderness Musculoskeletal: No swelling, No tenderness Integumentary: No rashes, No erythema Neurological: Normal speech, Normal strength at 5/5 x4 extr, Cranial nerves 3-12 intact Laboratory Data at Discharge: WBC 8.20 K/uL (4.3-10.9) D 08/19/21 03:58 Hgb 12.2 g/dL (13.6-17.9) L 08/19/21 03:58 Hct 38.7 % (39.6-49.0) L D 08/19/21 03:58 Plt Count 227 K/uL (152-406) 08/19/21 03:58 PT 13.5 SECONDS (9.5-12.5) H 08/16/21 13:49 INR 1.17 08/16/21 13:49 APTT 40.6 SECONDS (24.3-36.9) H 08/16/21 13:49 Sodium 137 mmol/L (136-145) 08/20/21 05:23 Potassium 3.9 mmol/L (3.5-5.1) 08/20/21 05:23 BUN 27 mg/dL (7-18) H 08/20/21 05:23 Creatinine 1.48 mg/dL (0.55-1.3) H 08/20/21 05:23 Glucose 99 mg/dL (74-106) 08/20/21 05:23 Phosphorus 3.6 mg/dL (2.5-4.9) 08/20/21 05:23 Magnesium 1.9 mg/dL (1.8-2.4) 08/17/21 03:10 Total Bilirubin 0.2 mg/dL (0.2-1.0) 08/16/21 20:22 AST 11 U/L (15-37) L 08/16/21 20:22 ALT 16 U/L (12-78) 08/16/21 20:22 Alkaline Phosphatase 67 U/L (45-117) 08/16/21 20:22 Triglycerides 24 mg/dL (<150) 08/17/21 03:10 Cholesterol 114 mg/dL (<200) 08/17/21 03:10 HDL Cholesterol 38 mg/dL (40-60) L 08/17/21 03:10 Cholesterol/HDL Ratio 3.00 08/17/21 03:10 Home Medications: Amlodipine [Norvasc*] 10 mg PO DAILY #30 tab 08/20/21 Amox/Clavulanate [Augmentin 875-125 Tab*] 875 mg PO BID #14 tab 08/20/21 Furosemide [Lasix] 40 mg PO DAILY #30 tab 08/20/21 New Medications: Amox/Clavulanate [Augmentin 875-125 Tab*] 875 mg PO BID #14 tab Furosemide [Lasix] 40 mg PO DAILY #30 tab Amlodipine [Norvasc*] 10 mg PO DAILY #30 tab Diet: AHA Activity: Ad gretel Followup: Sergio Humphries MD [ACTIVE - CAN ADMIT] - 1-2 Weeks Jose E Graves MD [ACTIVE - CAN ADMIT] - 1-2 Weeks NONE,NONE [Primary Care Provider] - Time spent managing pt's care (in minutes): 40
[2021-08-20 12:42] VITALS: BP 132/67; TEMP 97.6
--- NOTE | 2021-08-20 14:35 | CON ---
Date of Consultation: 08/18/2021 Reason For Consultation: Mitral stenosis. History Of Present Illness: Mr. Felton is 61, admitted by Dr. Calabrese with pneumonia. No cardiac hist ory really. He has a history of hypertension. Echocardiogram, however, was done showed left pleural effusion and pneumonia. He has severe mitral stenosis. He just underwent a thoracentesis by the ti me I saw him and he was not having any symptoms. Past Medical History: As stated above. Allergies: NONE. Review of Systems: Negative. Social History: Negative. Family History: Noncontributory. Medications: At home include Norvasc and Lasix. Diagnostic Data: His creatinine is 1.45, glucose was 125. His white count was 8000. Impression And Plan: Severe mitral regurgitation and likely severe mitral stenosis. The patient nee ds a transesophageal echocardiogram, which I will arrangement for as an outpatient. Continue present regimen for hypertension and pneumonia. He can go home whenever it is okay with Dr. Calabrese. AUDELIA/YELENAL Voice ID: [id number] Report ID: [id number]
[2021-08-24 20:22] LABS: LD, PLEURAL FLUID 143 U/L; TOTAL PROTEIN, PLEURAL FLUID <3.0 g/dL
[2021-08-25 12:20] LABS: ALBUMIN, PLEURAL FLUID 1.3 g/dL
== END 2021-08-20 13:40 | disposition home or self-care (01) | DRG 291 ==
LOC: ER 12:47 → ERHOLD 16:24 → 4TH 19:35 → 2ND 08-19 14:49
PROVIDERS: ADMIT Internal Medicine; ATTEND Internal Medicine
PROC: 0W9930Z Drainage of Right Pleural Cavity with Drainage Device, Percutaneous Approach (ICD-10-PCS; principal; 2021-08-18)
DX: I13.0 Hypertensive heart and chronic kidney disease with heart failure and stage 1 through stage 4 chronic kidney disease, or unspecified chronic kidney disease (principal); J18.9 Pneumonia, unspecified organism; I50.31 Acute diastolic (congestive) heart failure; J91.8 Pleural effusion in other conditions classified elsewhere; N17.9 Acute kidney failure, unspecified; C34.90 Malignant neoplasm of unspecified part of unspecified bronchus or lung; D64.9 Anemia, unspecified; N18.30 Chronic kidney disease, stage 3 unspecified; Z72.0 Tobacco use; I05.0 Rheumatic mitral stenosis; Z20.822 Contact with and (suspected) exposure to COVID-19
CPT/HCPCS: 0240U; 32555; 36415; 71045; 71275; 76770; 80048; 80053; 80061; 80069; 81003; 82042; 82945; 82947; 83615; 83735; 83880; 84100; 84145; 84157; 84484; 85025; 85379; 85610; 85730; 87040; 87070; 87205; 89050; 93005; 93306; 94640; 94760; 96365; 96367; 96375; 99285; G0103; J0360; J0456; J1650; J1940; J2543; J2930; J7050; Q2035; Q9967

== ENCOUNTER 2021-11-06 17:19 | Inpatient (IN) | payer SELFPAY ==
--- OUTSIDE RECORDS SUMMARY | 2021-11-06 17:22 | XMS REPORT | Continuity of Care Document ---
:1960 Author Organization [facility] t Address [address] [place] [address] Care Team Providers Name Role Phone Unavailable Unavailable Unavailable Problems This patient has no known problems. Allergies, Adverse Reactions, Alerts This patient has no known allergies or adverse reactions. Medications This patient has no known medications. Procedures This patient has no known procedures. Results Test Description Test Time Test Comments Results Result Comments Source LIPID PANEL 2021-09-09 03:44:45 Test Item Value Reference Range Interpretation Comme nts CHOLESTEROL (test code = 2210) 174 MG/DL <200 TRIGLYCERIDES (test code = 2232) 61 MG/DL <150 HDL CHOLESTEROL (test code = 64 MG/DL >39 2219) CALC LDL CHOL (test code = 2237) 95 MG/DL <100 NOTE: CALCULATED LDL IS BASED ON FLORINA-WILLS METHOD WHICHINCLUDES A DJUSTABLE TRIGLYCERIDE:VL DL CHOLESTEROL RATIO.THIS FACT OR VARIES BY MEASURED TRIGLY CERIDE AND NON-HDLCHOLESTE ROL CONCENTRATIONS WITH INCREASED CALCULATED LDL SEENIN HIGHER T RIGLYCERIDE OR LOWER NON-HDL S PECIMENS. FOR MOREINFORMATION , SEE CLIENT ANNOUNCEMENT AT [email or web address] [email or web address] LDL/HDL (test code = 1.48 RATIO <3.55 8) COMPREHENSIVE METABOLIC [id number] 03:44:45 Test Item Value Reference Range Interpretation Comments GLUCOSE (test code = 110 MG/DL 70-99 H 2216) BUN (test code = 18 MG/DL 6-20 2207) CREATININE (test 1.41 MG/DL 0.80-1.40 H EFFECTIVE code = 2214) 08/14/2021, [facility] HAS IMPLEMENTED THE NKF-ASN RECOMME NDED KD-EPI EGF R REFIT CALCULATI ON THAT DOES NOT I NCLUDE A COEFFICIENT FORRACE. FOR MO RE INFORMATION, SE E ANNOUNCEMENT [email or web address] eGFR (2020 CKD-EPI) 57 >60 L (test code = 73524) ML/MIN/1.73 CALC BUN/CREAT (test 13 RATIO 6-28 code = 2235) SODIUM (test code = 147 MEQ/L 133-146 H 2230) POTASSIUM (test code 3.8 MEQ/L 3.5-5.4 = 2227) CHLORIDE (test code 111 MEQ/L 95-107 H = 2214) CARBON DIOXIDE (test 24 MEQ/L 19-31 code = 220) CALCIUM (test code = 9.4 MG/DL 8.5-10.5 2208) PROTEIN, TOTAL (test 7.4 G/DL 6.1-8.3 code = 2228) ALBUMIN (test code = 3.9 G/DL 3.5-5.2 2200) CALC GLOBULIN (test 3.5 G/DL 1.9-3.7 code = 224) CALC A/G RATIO (test 1.1 RATIO 1.0-2.6 code = 223) BILIRUBIN, TOTAL 0.3 MG/DL See_Comment [Automated message] (test code = 2207) The syste [employer] which generated this result transmitted ref erence range: <=1.2. T he reference range was not used to int erpret this result as normal/abnormal . ALKALINE PHOSPHATASE 81 U/L 40-123 (test code = 220) AST (test code = 22 U/L 9-50 2217) ALT (test code = 16 U/L 5-50 UNLE SS 2218) OTHERWISE INDIC ATED, ALL TESTING PER [facility], [address] [place] [address] LABORATORY DIRE CTOR: ZACHARY POWELL M.D. CLIA NUMBER [id number] CAP ACCREDITATION N O. [id number]
[2021-11-06 19:34] LABS: Absolute Lymphocytes (CBC) 1.7 K/uL (0.7-4.9); Hematocrit 37.5 % (39.6-49.0); Lymphocytes % 21.7 % (15.3-44.8); MPV 8.6 fL (7.6-11.3); RBC Red Blood Cell Count 4.52 M/uL (4.33-5.43)
--- NOTE | 2021-11-06 19:34 | RAD REPORT ---
EXAM DESCRIPTION: RAD - Chest Single View - 11/06/2021 7:08 pm CLINICAL HISTORY: SOB Chest pain. COMPARISON: Chest Single View dated 08/19/2021; Chest Single View dated 08/16/2021; Chest For Pe Ang io dated 08/16/2021 FINDINGS: Portable technique limits examination quality. Opacification of the right lung base and right pleural effusion appears essentially unchanged since 1 10/17/2020 study. Chronic infiltrate versus alveolar neoplasia is possible. The heart is mildly enlarg ed in size. Tortuous thoracic aorta.
[2021-11-06 19:35] LABS: Protime INR 1.43
[2021-11-06] MEDS ORDERED: LEVALBUTEROL 1.25 MG/3 ML NEB ONE (19:36)
[2021-11-06 19:57] LABS: SARS-COV-2 RT PCR NEGATIVE (NEGATIVE)
--- NOTE | 2021-11-06 20:50 | RAD REPORT ---
EXAM DESCRIPTION: US - Extrem Venous W Compress [place] - 11/06/2021 8:27 pm CLINICAL HISTORY: SWELLING Bilateral leg edema and swelling. COMPARISON: No comparisons TECHNIQUE: Real-time sonographic interrogation of the left and right lower extremity deep venous sys tems was performed. FINDINGS: Normal compressibility, flow augmentation, phasic flow and spontaneous flow is identified in both the left and right lower extremity deep venous systems. IMPRESSION: No sonographic evidence of left or right lower extremity deep venous thrombosis.
[2021-11-06 21:00] LABS: Albumin 2.9 g/dL (3.4-5.0); Bilirubin Direct 0.2 mg/dL (0-0.2); Bilirubin Total 0.6 mg/dL (0.2-1.0); Potassium 4.3 mmol/L (3.5-5.1); Protein, Total 7.6 g/dL (6.4-8.2)
[2021-11-06 21:07] LABS: Troponin High Sensitivity 46.2 pg/mL (<58.9)
--- NOTE | 2021-11-06 21:29 | ER ---
Nurse's Notes [facility] Name: David Felton Age: 61 yrs Sex: Male : 1960 Arrival Date: 11/06/2021 Time: 17:23 Bed 25 Private MD: Diagnosis: Acute Kidney Injury;Peripheral Edema;Dyspnea Presentation: 11/06 17:36 Chief complaint: Patient states: "I've had a dry cough and SOB that started 3 days ago. ab2 I went to the clinic and they gave me atorvastatin. They said I should be on three different medications but they only gave me one. My legs are swelling from my knees to my calf". Coronavirus screen: Vaccine status: Patient reports being unvaccinated. Client denies travel out of the [place] in the last 14 days. cough unrelated to allergies, shortness of breath. Ebola Screen: Patient negative for fever greater than or equal to 101.5 degrees Fahrenheit, and additional compatible Ebola Virus Disease symptoms Patient denies exposure to infectious person. Patient denies travel to an Ebola-affected area in the 21 days before illness onset. No symptoms or risks identified at this time. Initial Sepsis Screen: Does the patient meet any 2 criteria? No. Patient's initial sepsis screen is negative. Does the patient have a suspected source of infection? No. Patient's initial sepsis screen is negative. Risk Assessment: Do you want to hurt yourself or someone else? Patient reports no desire to harm self or others. Onset of symptoms is unknown. 17:36 Method Of Arrival: Ambulatory ab2 17:40 Acuity: JERO 3 ab2 Triage Assessment: 17:42 General: Appears in no apparent distress. comfortable, Behavior is calm, cooperative, ab2 appropriate for age. Pain: Denies pain. Respiratory: Reports shortness of breath cough that is dry, Airway is patent Respiratory effort is even, unlabored, Respiratory pattern is regular, symmetrical, Onset: The symptoms/episode began/occurred a few days , the patient has mild shortness of breath. Historical: - Allergies: 17:41 No Known Allergies; ab2 - Home Meds: 17:41 atorvastatin 10 mg oral tab 1 tab once daily [Active]; ab2 - PMHx: 17:41 Hypertensive disorder; ab2 - PSHx: 17:41 diverticulitis SX; ab2 - Immunization history:: Adult Immunizations up to date. - Social history:: Smoking status: Patient denies any tobacco usage or history of. Screenin:47 Abuse screen: Denies threats or abuse. Denies injuries from another. Nutritional kd3 screening: No deficits noted. Tuberculosis screening: No symptoms or risk factors identified. Fall Risk IV access (20 points). Assessment: 19:47 Cardiovascular: Rhythm is regular. Respiratory: Airway is patent Trachea midline kd3 Respiratory effort is even, labored, Breath sounds are clear bilaterally. 22:14 General: Appears in no apparent distress. Behavior is calm, cooperative, appropriate kd3 for age. 22:14 Reassessment: admitting provider at bedside. pt O2 dropping under 90. maintaining in kd3 the high 80's. placed 2l nc on pt. provider notified. Vital Signs: 17:36 BP 178 / 74; Pulse 98; Resp 24; Temp 98.1(TE); Pulse Ox 97% on R/A; Weight 99.79 kg; ab2 Height 5 ft. 62 in. (309.88 cm); Pain 0/10; 19:53 BP 169 / 72; Pulse 83; Resp 20; Pulse Ox 100% ; kd3 21:14 BP 169 / 81; Pulse 84; Resp 15; Pulse Ox 94% ; kd3 17:36 Body Mass Index 10.39 (99.79 kg, 309.88 cm) ab2 ED Course: 17:23 Patient arrived in ED. es 17:40 Triage completed. ab2 17:42 Arm band placed on right wrist. ab2 18:50 Lew Navarro PA is PHCP. [facility] 18:50 Mp Holt MD is Attending Physician. [facility] 18:50 Grupo Mustafa NP is PHCP. pm1 19:01 Inserted saline lock: 20 gauge in right antecubital area, using aseptic technique. eo2 Blood collected. 19:08 XRAY Chest (1 view) In Process Unspecified. EDMS 19:21 Fernanda Song, NICK is Primary Nurse. kd3 19:48 Patient has correct armband on for positive identification. Bed in low position. Call kd3 light in reach. Side rails up X 1. 20:26 US Extremity Venous W Compression [place] In Process Unspecified. EDMS 21:27 Lamonte Calabrese is Hospitalizing Provider. [facility] 11/07 03:10 No provider procedures requiring assistance completed. Patient admitted, IV remains in kd3 place. Administered Medications: 11/06 19:48 Drug: Xopenex (levalbuterol) (3) 1.25 mg Route: Inhalation; kd3 19:56 Follow up: Response: No adverse reaction kd3 11/07 03:10 Follow up: Response: No adverse reaction kd3 11/06 22:10 Drug: Rocephin (cefTRIAXone) 1 grams Route: IV; Rate: calculated rate; Site: right kd3 antecubital; 11/07 03:10 Follow up: Response: No adverse reaction; IV Status: Completed infusion kd3 Outcome: 11/06 21:28 Decision to Hospitalize by Provider. [facility] 11/07 03:10 Admitted to ER Hold. Please see [facility] for further documentation. kd3 Condition: stable Instructed on the need for admit. 14:42 Patient left the ED. ab2 Signatures: Dispatcher [employer] EDMS Lew Navarro PA PA [facility] Allie Roth Patrick SUPERVISOR POWDERED SUGAR SUPERVISOR POWDERED SUGAR pm1 Fernanda Song RN RN kd3 Princess Gilmore RN RN eo2 Carlitos Beverly ab2 Corrections: (The following items were deleted from the chart) 11/06 17:41 17:36 Chief complaint: Patient states: "I've had a dry cough and SOB that started 3 ab2 days ago. I went to the clinic and they gave me atorvastatin. They said I should be on three different medications but they only gave me one" ab2 17:41 17:36 Acuity: JERO 4 ab2 ab2
--- NOTE | 2021-11-06 21:29 | EDPHYS ---
Physician Documentation [facility] Name: David Felton Age: 61 yrs Sex: Male : 1960 Arrival Date: 11/06/2021 Time: 17:23 Bed 25 Private MD: ED Physician Mp Holt HPI: 11/06 18:54 This 61 yrs old Black Male presents to ER via Ambulatory with complaints of Breathing jmm Difficulty, Leg Swelling. 18:54 The patient has shortness of breath at rest. Onset: The symptoms/episode began/occurred jmm gradually, 3 day(s) ago. Duration: The symptoms are continuous. The patient's shortness of breath is aggravated by nothing, is alleviated by nothing. Associated signs and symptoms: Pertinent positives: non-productive cough. This is a 61-year-old male with history of hypertension the presents emerged part with complaints of progressively worsening shortness of breath beginning the past 3 days. Patient states that he developed right lower leg swelling as well. Denies chest pain. Patient was having a similar episode approximately 2 to 3 months ago when diagnosed with pneumonia. Denies history of CAD, CHF.. Historical: - Allergies: 17:41 No Known Allergies; ab2 - Home Meds: 17:41 atorvastatin 10 mg oral tab 1 tab once daily [Active]; ab2 - PMHx: 17:41 Hypertensive disorder; ab2 - PSHx: 17:41 diverticulitis SX; ab2 - Immunization history:: Adult Immunizations up to date. - Social history:: Smoking status: Patient denies any tobacco usage or history of. ROS: 18:54 Constitutional: Negative for fever, chills, and weight loss, Cardiovascular: Negative jmm for chest pain, palpitations, and edema. 18:54 Respiratory: Positive for cough, shortness of breath. 18:54 All other systems are negative. Exam: 18:54 Constitutional: This is a well developed, well nourished patient who is awake, alert, jmm and in no acute distress. Head/Face: atraumatic. Eyes: EOMI, no conjunctival erythema appreciated ENT: Moist Mucus Membranes Neck: Trachea midline, Supple Chest/axilla: Normal chest wall appearance and motion. Abdomen/GI: Non distended, soft Back: Normal ROM Skin: General appearance color normal MS/ Extremity: Moves all extremities, no obvious deformities appreciated, no edema noted to the lower extremities Neuro: Awake and alert Psych: Behavior is normal, Mood is normal, Patient is cooperative and pleasant 18:54 Cardiovascular: Rate: tachycardic, Rhythm: regular. 18:54 Respiratory: mild respiratory distress is noted, Respirations: labored breathing, that is mild, Breath sounds: wheezing: is scattered. 18:54 Musculoskeletal/extremity: Edema noted to the right lower leg, full dorsalis pedis pulse, compartments are soft, full range of motion appreciated the knee and the ankle, neurovascular intact. 18:54 Skin: Appearance: Color: normal in color. 18:54 Neuro: Orientation: is normal, Mentation: is normal, Memory: is normal. 18:54 Psych: Behavior/mood is pleasant, cooperative. Vital Signs: 17:36 BP 178 / 74; Pulse 98; Resp 24; Temp 98.1(TE); Pulse Ox 97% on R/A; Weight 99.79 kg; ab2 Height 5 ft. 62 in. (309.88 cm); Pain 0/10; 19:53 BP 169 / 72; Pulse 83; Resp 20; Pulse Ox 100% ; kd3 21:14 BP 169 / 81; Pulse 84; Resp 15; Pulse Ox 94% ; kd3 17:36 Body Mass Index 10.39 (99.79 kg, 309.88 cm) ab2 MDM: 18:54 Patient medically screened. [facility] 21:25 Data reviewed: vital signs, nurses notes. Counseling: I had a detailed discussion with [facility] the patient and/or guardian regarding: the historical points, exam findings, and any diagnostic results supporting the discharge/admit diagnosis, lab results, radiology results, the need for further work-up and treatment in the hospital. ED course: I discussed the patient with Ms. Chilo PA-C, whom accepted the patient to Dr. Bharati augustin. Do to concerns for KINSEY. pneumonia, CHF. . 11/06 18:55 Order name: Basic Metabolic Panel; Complete Time: 21:08 [facility] 11/06 18:55 Order name: CBC with Diff; Complete Time: 20:18 [facility] 11/06 18:55 Order name: LFT's; Complete Time: 21:08 [facility] 11/06 18:55 Order name: Magnesium; Complete Time: 21:08 [facility] 11/06 18:55 Order name: NT PRO-BNP; Complete Time: 21:08 [facility] 11/06 18:55 Order name: PT-INR; Complete Time: 20:18 [facility] 11/06 18:55 Order name: Troponin HS; Complete Time: 21:08 [facility] 11/06 18:55 Order name: COVID-19/FLU A+B (Document "Date of Onset" if Symptomatic); Complete Time: [facility] 20:18 11/06 21:30 Order name: Blood Culture Adult (2) [facility] 11/07 02:15 Order name: Urine Dipstick-Ancillary [facility] 11/07 03:36 Order name: CBC with Automated Diff [facility] 11/07 03:58 Order name: Comprehensive Metabolic Panel [facility] 11/07 06:56 Order name: Urinalysis [facility] 11/07 07:09 Order name: Urine Microscopic Only [facility] 11/06 18:55 Order name: XRAY Chest (1 view); Complete Time: 20:18 [facility] 11/06 18:55 Order name: EKG; Complete Time: 18:56 [facility] 11/06 18:55 Order name: Cardiac monitoring; Complete Time: 19:48 [facility] 11/06 18:55 Order name: EKG - Nurse/Tech; Complete Time: 19:49 [facility] 11/06 18:55 Order name: IV Saline Lock; Complete Time: 19:31 [facility] 11/06 18:55 Order name: Labs collected and sent; Complete Time: 19:31 [facility] 11/06 18:55 Order name: O2 Per Protocol; Complete Time: 19:31 [facility] 11/06 18:55 Order name: O2 Sat Monitoring; Complete Time: 19:31 [facility] 11/06 19:02 Order name: US Extremity Venous W Compression [place]; Complete Time: 20:54 [facility] 11/07 08:15 Order name: Glucose, Ancillary Testing [facility] 11/07 09:41 Order name: Glucose, Ancillary Testing [facility] 11/07 13:38 Order name: Glucose, Ancillary Testing [facility] Administered Medications: 19:48 Drug: Xopenex (levalbuterol) (3) 1.25 mg Route: Inhalation; kd3 19:56 Follow up: Response: No adverse reaction kd3 11/07 03:10 Follow up: Response: No adverse reaction kd3 11/06 22:10 Drug: Rocephin (cefTRIAXone) 1 grams Route: IV; Rate: calculated rate; Site: right kd3 antecubital; 11/07 03:10 Follow up: Response: No adverse reaction; IV Status: Completed infusion kd3 Disposition Summary: 11/06/21 21:28 Hospitalization Ordered Hospitalization Status: Observation jm Provider: Lamonte Calabrese Condition: Stable jmm Problem: new jmm Symptoms: are unchanged jm Bed/Room Type: Standard [facility] Location: Telemetry/MedSurg (observation)(11/07/21 12:40) bd Room Assignment: 219(11/07/21 12:40) bd Diagnosis - Acute Kidney Injury jmm - Peripheral Edema jmm - Dyspnea jm Forms: - Medication Reconciliation Form jmm - SBAR form jmm Signatures: Dispatcher [employer] EDMS Germania Little bd Lew Navarro PA PA jmm Garcia, Cindy, RN RN cg Fernanda Song RN RN kd3 Carlitos Beverly2 Corrections: (The following items were deleted from the chart) 11/06 21:33 20:39 Chest For PE Angio+CT.RAD.BRZ ordered. EDMS EDMS 22:34 21:28 Telemetry/MedSurg (observation) [facility] cg 22:34 21:28 jm cg 11/07 12:40 11/06 22:34 BR ER HOLD cg bd 11/07 12:40 11/06 22:34 ERHOLD- cg bd
[2021-11-06] MEDS ORDERED: CEFTRIAXONE 1000 MG/VIAL ONE (22:04)
--- NOTE | 2021-11-06 22:24 | P.HP ---
Certification for Inpatient Patient admitted to: Inpatient With expected LOS: >2 Midnights Patient will require the following post-hospital care: None Practitioner: I am a practitioner with admitting privileges, knowledge of patient current condition, hospital course, and medical plan of care. Services: Services provided to patient in accordance with Admission requirements found in Title 42 Section 412.3 of the Code of Federal Regulations Patient History Date of Service: 11/06/21 Primary Care Provider: None Reason for admission: SHOB History of Present Illness: Patient is a 61-year-old -[place]ib[place] male with past medical history of hypertension and pleural effusion who presented to the ED with complaints of 1-2 weeks of progressive shortness of breath and lower leg swelling. Patient was admitted to the hospital in August 2021 for similar symptoms and was found to have a Moderate loculated right pleural effusion, Right middle and right lower lobe opacities. Patient was evaluated by Dr. Marie and ended up having an ultrasound-guided thoracentesis- 1300 cc yellow fluid was aspirated. Culture was negative. Patient was treated with antibiotics for suspected infection, Lasix for fluid overload, And amlodipine for hypertension. Patient was discharged on amlodipine and Lasix and advised to follow-up with pulmonology and cardiology for RONI because of mitral valve regurgitation, mitral valve stenosis and aortic regurgitation shown on TTE. EF was 60-65%. upon speaking with patient, he did not follow-up nor did he fill his prescriptions. chest x-ray today showed similar findings to last visit which was "Chronic infiltrate versus alveolar neoplasia." CT chest with contrast was unable to be performed due to patient's elevated creatinine of 1.87. Pend imaging recommendation from Dr. Marie. Patient's BNP was elevated at 15,798. Covid negative. He was satting in the high 80s and placed on 2 L nasal cannula. He was given 3 doses of levalbuterol and 1 g of ceftriaxone in the ED. Will admit patient to the hospital service with Dr. Marie consulting. Allergies No Known Allergies Allergy (Unverified 08/16/21 20:01) Home medications list reviewed: Yes Home Medications: Amlodipine [Norvasc*] 10 mg PO DAILY #30 tab 08/20/21 Amox/Clavulanate [Augmentin 875-125 Tab*] 875 mg PO BID #14 tab 08/20/21 Furosemide [Lasix] 40 mg PO DAILY #30 tab 08/20/21 - Past Medical/Surgical History Diabetic: No -: Prior history of diabetes-patient states his diabetes has resolved. 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 - Family History Mother -: Heart disease, Stroke - Social History Smoking Status: Never smoker Alcohol use: No CD- Drugs: No Caffeine use: No Place of Residence: Home Review of Systems Respiratory: Shortness of Breath Cardiovascular: Orthopnea, Edema Physical Examination - Physical Exam General: Alert, In no apparent distress, Oriented x3 HEENT: Atraumatic, PERRLA, EOMI, Sclerae nonicteric Neck: Supple, 2+ carotid pulse no bruit, No LAD, Without JVD or thyroid abnormality Respiratory: Expiratory wheezes Cardiovascular: Regular rate/rhythm, Normal S1 S2, Edema (2+ pitting edema ) Gastrointestinal: Normal bowel sounds, No tenderness Musculoskeletal: No tenderness Integumentary: No rashes Neurological: Normal speech, Normal strength at 5/5 x4 extr, Normal tone, Normal affect - Studies Laboratory Data (last 24 hrs) 11/06/21 19:09: PT 16.5 H, INR 1.43 11/06/21 19:09: WBC 8.00, Hgb 11.7 L, Hct 37.5 L, Plt Count 220 11/06/21 19:09: Sodium 137, Potassium 4.3, BUN 26 H, Creatinine 1.87 H, Glucose 87, Magnesium 2.0, Total Bilirubin 0.6, AST 40 H, ALT 44, Alkaline Phosphatase 69 Assessment and Plan - Problems (Diagnosis) (1) Pleural effusion Current Visit: Yes Status: Acute (2) Acute renal failure superimposed on stage 3 chronic kidney disease Current Visit: Yes Status: Acute Qualifiers: Acute renal failure type: unspecified Chronic kidney disease stage 3 subtype: stage 3a (GFR 45-59) Qualified Code(s): N17.9 - Acute kidney failure, unspecified; N18.31 - Chronic kidney disease, stage 3a (3) Peripheral edema Current Visit: Yes Status: Acute (4) Hypertension Current Visit: Yes Status: Acute Qualifiers: Hypertension type: primary hypertension Qualified Code(s): I10 - Essential (primary) hypertension - Plan -Pleural effusion is present on chest x-ray that is apparently unchanged from imaging on 12-15-[address]. [address] chest with contrast due to patient's elevated creatinine. V/Q scan in the morning? previously required ultrasound- guided thoracentesis. Dr. Marie consulting -KINSEY on CKD: According to previous labs, patient has stage IIIa chronic kidney disease. His GFR was 59 in August 2021 and is 45 today. -Patient shortness of breath likely secondary to pleural effusion however possibly due to CHF. BNP is elevated. Troponin negative. Echo in August 2021 showed mitral valve stenosis, mitral valve regurg, aortic regurgitation. Patient was supposed to follow-up for a RONI however did not. Cardiology consult? -Patient discharged on Lasix however he did not fill his prescription. Patient has 2+ pitting edema upon my assessment. Will resume. -Patient was treated with and discharged on amlodipine however he did not fill his prescription. Will resume In addition to hydralazine 10 mg twice daily as needed. -Low suspicion for pneumonia as patient's white blood cell count was not elevated and his vitals are stable. Received 1 g of ceftriaxone in the ED and blood cultures were drawn. Pend further imaging. we will continue to monitor. -Breathing treatments as needed for shortness of breath/wheezing and 2 L O2 nasal cannula. DVT PPx: Lovenox Code: Full Discharge Plan: Home Plan to discharge in: Greater than 2 days - Advance Directives Does patient have a Living Will: No Does patient have a Durable POA for Healthcare: No - Code Status/Comfort Care Code Status Assessed: Yes (Full) Time Spent Managing Pts Care (In Minutes): 70
[2021-11-06] MEDS ORDERED: ONDANSETRON 4 MG/2 ML VIAL IV PRN (23:14)
[2021-11-06] MEDS ORDERED: ACETAMINOPHEN 500 MG TAB PO PRN (23:14)
[2021-11-06] MEDS ORDERED: ALBUTEROL 2.5 MG/3 ML NEB SOL NEB PRN (23:14)
[2021-11-06 23:57] VITALS: BMI 28.2
[2021-11-07] MEDS ORDERED: HYDRALAZINE HCL 20 MG/ML VIAL ONE (00:05)
[2021-11-07] MEDS: HYDRALAZINE HCL 10 MG TABLET PO PRN ×2 (00:08→16:48)
[2021-11-07] MEDS ORDERED: HYDRALAZINE HCL 10 MG TABLET ONE ×2 (00:10→06:58)
[2021-11-07 02:14] LABS: Urine Blood 2+ (Negative); Urine Glucose Negative (Negative); Urine Protein 3+ (Negative); Urine Specific Gravity 1.025 (1.005-1.030); Urine pH 5.5 (5.0-7.0)
[2021-11-07 03:29] LABS: Absolute Lymphocytes (CBC) 1.5 K/uL (0.7-4.9); Hematocrit 31.6 % (39.6-49.0); Lymphocytes % 18.8 % (15.3-44.8); MPV 8.4 fL (7.6-11.3); RBC Red Blood Cell Count 3.95 M/uL (4.33-5.43)
[2021-11-07 03:49] LABS: Albumin 2.5 g/dL (3.4-5.0); Bilirubin Total 0.6 mg/dL (0.2-1.0); Potassium 3.9 mmol/L (3.5-5.1); Protein, Total 6.4 g/dL (6.4-8.2)
[2021-11-07 06:49] LABS: Urine Appearance CLEAR (Clear); Urine Bilirubin NEGATIVE (Negative); Urine Blood 2+ (Negative); Urine Color YELLOW (Yellow); Urine Glucose NEGATIVE (Negative); Urine Protein 3+ (Negative); Urine Specific Gravity 1.015 (1.005-1.030); Urine Urobilinogen 0.2 mg/dL (0.2-1.0); Urine pH 5.5 (5.0-7.0)
[2021-11-07 06:56] LABS: Urine Microscopic Reflex ORDER UMIC
[2021-11-07 07:09] LABS: Urine Bacteria 20-50 /HPF (NONE SEEN)
[2021-11-07] MEDS: INSULIN -REGULAR HUMAN 50 UNIT/0.5 ML ML SQ SCH ×4 (07:30→20:17)
[2021-11-07] MEDS ORDERED: INFLUENZA VACCINE (for 6+ mo) 0.5 ML DOSE IMVAC ONE (08:00)
[2021-11-07] MEDS: AMLODIPINE 5 MG TAB PO SCH (09:00)
[2021-11-07] MEDS: FUROSEMIDE 20 MG/ 2ML VIAL IV SCH (09:00)
[2021-11-07] MEDS ORDERED: FUROSEMIDE 20 MG/ 2ML VIAL ONE (09:21)
[2021-11-07] MEDS ORDERED: AMLODIPINE 10 MG TAB ONE (09:22)
[2021-11-07] MEDS ORDERED: ENOXAPARIN 40 MG/0.4 ML SQ ONE (09:22)
[2021-11-07] MEDS: ENOXAPARIN 40 MG/0.4 ML SQ SCH (09:23)
--- NOTE | 2021-11-07 15:27 | RAD REPORT ---
EXAM DESCRIPTION: RAD - Chest Lateral Decubitus - 11/07/2021 3:07 pm CLINICAL HISTORY: Pleural effusion FINDINGS: Left pleural effusion is not seen Little layering of a moderate right pleural effusion. This indicates that it is either very viscous o r loculated
--- NOTE | 2021-11-07 16:47 | P.CNS ---
Date of Consult: 11/07/21 Reason for Consult: Pleural effusion Primary Care Provider: None Chief Complaint: SOB History of Present Illness: AGE 61 aW acute SOB for 5 days. Similar episode to August Sp Thoracentesis, HC ofHTN/ Feeling a lot better since Admission. No Hx of cancer Non smoker HX of CAD, No fever or chills Allergies No Known Allergies Allergy (Unverified 08/16/21 20:01) Home Medications: Atorvastatin Calcium [Lipitor*] 1 tab PO DAILY 11/06/21 - Past Medical/Surgical History Diabetic: No -: Prior history of diabetes-patient states his diabetes has resolved. 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 - Family History Mother Medical History: Heart disease, Stroke - Social History Alcohol use: No CD- Drugs: No Caffeine use: No Place of Residence: Home Review of Systems 10-point ROS is otherwise unremarkable Physical Examination Temp Pulse Resp BP Pulse Ox 97.7 F 88 18 172/90 H 97 11/07/21 08:00 11/07/21 09:00 11/07/21 08:00 11/07/21 09:00 11/07/21 08:00 General: Alert, In no apparent distress, Oriented x3 HEENT: Atraumatic Neck: Supple Respiratory: Diminished (R base) Cardiovascular: No edema, Normal S1 S2 Gastrointestinal: Normal bowel sounds, Soft and benign Laboratory Data (last 24 hrs) 11/06/21 19:09: PT 16.5 H, INR 1.43 11/06/21 19:09: WBC 8.00, Hgb 11.7 L, Hct 37.5 L, Plt Count 220 11/06/21 19:09: Sodium 137, Potassium 4.3, BUN 26 H, Creatinine 1.87 H, Glucose 87, Magnesium 2.0, Total Bilirubin 0.6, AST 40 H, ALT 44, Alkaline Phosphatase 69 - Problems (1) Pleural effusion Current Visit: Yes Status: Acute Plan: R sided pleural effusion S/p thoracentesis in 08/2021/ . CRF mild microcutic anemia/ BP elevated, Exudate by LDH criteria, Low protein/ . locualted R effusion Refer to Thoraci surgeon Jayant at discharge BP control
--- NOTE | 2021-11-07 18:27 | P.PN ---
Subjective Date of Service: 11/07/21 Primary Care Provider: None Chief Complaint: SOB Patient comfortable on 1.5 L of oxygen by nasal cannula. No new complaints. Physical Examination - Vital Signs Temperature: 97.5 F Blood Pressure: 183/79 Pulse: 83 Respirations: 22 Pulse Ox (%): 97 - Physical Exam General: Alert, In no apparent distress, Oriented x3 HEENT: Mucous membr. moist/pink Neck: JVD not distended Respiratory: Diminished (Bilateral) Cardiovascular: No edema, Regular rate/rhythm, Normal S1 S2 Gastrointestinal: Normal bowel sounds, Soft and benign, Non-distended, No tenderness Musculoskeletal: No swelling Integumentary: No rashes Neurological: Normal strength at 5/5 x4 extr Lymphatics: No axilla or inguinal lymphadenopathy - Studies Laboratory Data (last 24 hrs) 11/06/21 19:09: PT 16.5 H, INR 1.43 11/06/21 19:09: WBC 8.00, Hgb 11.7 L, Hct 37.5 L, Plt Count 220 11/06/21 19:09: Sodium 137, Potassium 4.3, BUN 26 H, Creatinine 1.87 H, Glucose 87, Magnesium 2.0, Total Bilirubin 0.6, AST 40 H, ALT 44, Alkaline Phosphatase 69 Assessment And Plan - Current Problems (Diagnosis) (1) Hypertension Current Visit: Yes Status: Acute Qualifiers: Hypertension type: primary hypertension Qualified Code(s): I10 - Essential (primary) hypertension (2) Pleural effusion Current Visit: Yes Status: Acute (3) Acute diastolic heart failure Current Visit: No Status: Acute (4) Chronic kidney disease, stage III (moderate) Current Visit: No Status: Acute Qualifiers: Chronic kidney disease stage 3 subtype: stage 3a (GFR 45-59) Qualified Code(s): N18.31 - Chronic kidney disease, stage 3a - Plan Patient with loculated pleural effusion. Pulmonary input appreciated. Continue Lasix. Dr. Humphries recommend outpatient follow-up for referral for VATS. Titrate oxygen. Supportive measures. Monitor intake and output. Aggressive blood pressure control. Start amlodipine.
[2021-11-08 04:08] LABS: Absolute Lymphocytes (CBC) 1.3 K/uL (0.7-4.9); Hematocrit 33.6 % (39.6-49.0); Lymphocytes % 18.5 % (15.3-44.8); MPV 8.6 fL (7.6-11.3); RBC Red Blood Cell Count 4.17 M/uL (4.33-5.43)
[2021-11-08 04:29] LABS: Albumin 2.5 g/dL (3.4-5.0); Bilirubin Total 0.5 mg/dL (0.2-1.0); Potassium 3.9 mmol/L (3.5-5.1); Protein, Total 6.7 g/dL (6.4-8.2)
[2021-11-08] MEDS: INSULIN -REGULAR HUMAN 50 UNIT/0.5 ML ML SQ SCH ×2 (07:30→11:30)
[2021-11-08] MEDS: FUROSEMIDE 20 MG/ 2ML VIAL IV SCH (08:12)
[2021-11-08] MEDS: AMLODIPINE 5 MG TAB PO SCH (08:13)
[2021-11-08] MEDS: ENOXAPARIN 40 MG/0.4 ML SQ SCH (08:13)
[2021-11-08 08:46] VITALS: O2SAT 92
--- NOTE | 2021-11-08 10:18 | P.DS ---
Admission Date: 11/06/21 Discharge Date: 11/08/21 Primary Care Provider: None Disposition: ROUTINE DISCHARGE Discharge Condition: FAIR Reason for Admission: SOB - Problems (1) Hypertension Status: Acute Qualifiers: Hypertension type: primary hypertension Qualified Code(s): I10 - Essential (primary) hypertension (2) Pleural effusion Status: Acute (3) Acute diastolic heart failure Status: Acute (4) Chronic kidney disease, stage III (moderate) Status: Acute Qualifiers: Chronic kidney disease stage 3 subtype: stage 3a (GFR 45-59) Qualified Code(s): N18.31 - Chronic kidney disease, stage 3a Brief History of Present Illness: Patient is a 61-year-old -Russian male with past medical history of hypertension and pleural effusion who presented to the ED with complaints of 1-2 weeks of progressive shortness of breath and lower leg swelling. Patient was admitted to the hospital in August 2021 for similar symptoms and was found to have a Moderate loculated right pleural effusion, Right middle and right lower lobe opacities. Patient was evaluated by Dr. Marie and ended up having an ultrasound-guided thoracentesis- 1300 cc yellow fluid was aspirated. Culture was negative. Patient was treated with antibiotics for suspected infection, Lasix for fluid overload and amlodipine for hypertension. Patient was discharged on amlodipine and Lasix and advised to follow-up with pulmonology and cardiology for RONI because of mitral valve regurgitation, mitral valve stenosis and aortic regurgitation shown on TTE. EF was 60-65%. Apparently he did not follow-up all filled his prescription. Chest x-ray today showed similar findings to last visit which was "Chronic infiltrate versus alveolar neoplasia." CT chest with contrast was unable to be performed due to patient's elevated creatinine of 1.87. Patient's BNP was elevated at 15,798. Covid negative. His oxygen saturation was in the high 80s and placed on 2 L nasal cannula. He was given 3 doses of levalbuterol and 1 g of ceftriaxone in the ED. Patient admitted for further management. Hospital Course: Patient admitted to the medical floor and treated for CHF exacerbation and pleural effusion with IV Lasix. He responded to treatment with improvement in his shortness of breath he was later tolerating room air with good oxygen saturation. Repeat chest x-ray showed right pleural effusion is unchanged. Patient seen and evaluated by pulmonary Dr. Humphries who recommend VATS. He recommended patient to follow-up with him in the office for referral for VATS. Echocardiogram repeated and the result is pending. Patient is clinically improved. He is discharged to follow-up with Dr. Humphries as planned. Vital Signs/Physical Exam: Temp Pulse Resp BP Pulse Ox 98.1 F 88 20 159/79 H 97 11/08/21 08:00 11/08/21 08:13 11/08/21 08:00 11/08/21 08:13 11/08/21 08:00 General: Alert, In no apparent distress, Oriented x3 HEENT: Mucous membr. moist/pink, Sclerae nonicteric Neck: JVD not distended Respiratory: Clear to auscultation bilaterally, Normal air movement Cardiovascular: No edema, Regular rate/rhythm, Normal S1 S2 Gastrointestinal: Soft and benign, Non-distended, No tenderness Musculoskeletal: No swelling Integumentary: No rashes, No erythema Neurological: Normal strength at 5/5 x4 extr Lymphatics: No axilla or inguinal lymphadenopathy Laboratory Data at Discharge: WBC 7.10 K/uL (4.3-10.9) 11/08/21 03:26 Hgb 11.0 g/dL (13.6-17.9) L 11/08/21 03:26 Hct 33.6 % (39.6-49.0) L 11/08/21 03:26 Plt Count 198 K/uL (152-406) 11/08/21 03:26 PT 16.5 SECONDS (9.5-12.5) H 11/06/21 19:09 INR 1.43 11/06/21 19:09 Sodium 140 mmol/L (136-145) 11/08/21 03:26 Potassium 3.9 mmol/L (3.5-5.1) 11/08/21 03:26 BUN 21 mg/dL (7-18) H 11/08/21 03:26 Creatinine 1.75 mg/dL (0.55-1.3) H 11/08/21 03:26 Glucose 103 mg/dL (74-106) 11/08/21 03:26 Magnesium 2.0 mg/dL (1.8-2.4) 11/06/21 19:09 Total Bilirubin 0.5 mg/dL (0.2-1.0) 11/08/21 03:26 AST 20 U/L (15-37) 11/08/21 03:26 ALT 31 U/L (12-78) 11/08/21 03:26 Alkaline Phosphatase 61 U/L (45-117) 11/08/21 03:26 Home Medications: Atorvastatin Calcium [Lipitor*] 1 tab PO DAILY 11/06/21 Amlodipine [Norvasc*] 10 mg PO DAILY #30 tab 11/08/21 Furosemide [Lasix] 40 mg PO DAILY #30 tab 11/08/21 Hydralazine [Apresoline*] 10 mg PO BID PRN #60 tab 11/08/21 New Medications: Hydralazine [Apresoline*] 10 mg PO BID PRN #60 tab PRN Reason: Titrate To Sbp (Must Define) Furosemide [Lasix] 40 mg PO DAILY #30 tab Amlodipine [Norvasc*] 10 mg PO DAILY #30 tab Diet: AHA Activity: Ad gretel Followup: Sergio Humphries MD [ACTIVE - CAN ADMIT] - 1-2 Weeks (Call to schedule Appointment) NONE,NONE [Primary Care Provider] - (Call to schedule appointment) Time spent managing pt's care (in minutes): 35
[2021-11-08 12:35] VITALS: BP 157/72; TEMP 97.4
--- NOTE | 2021-11-08 12:56 | EKG ---
Test Date: 2021-11-06 Test Time: 19:38:01 Healthcare Financial Analyst: BOUBACAR MEASUREMENT RESULTS: Intervals: Rate: 89 GA: 204 QRSD: 86 QT: 432 QTc: 525 [place]: P: 50 GA: 204 QRS: -27 T: 30 INTERPRETIVE STATEMENTS: Normal sinus rhythm T wave abnormality, consider anterior ischemia Prolonged QT Abnormal ECG Compared to ECG 08/16/2021 13:40:54 T-wave abnormality now present Possible ischemia now present Electronically Signed On 11-08-21 12:52:25 INTELLIGENCE ENGINEER by Jose E Graves
--- NOTE | 2021-11-08 13:52 | ECHO ---
HEIGHT: 6 ft 2 in WEIGHT: 219 lb 12.8 oz DATE OF STUDY: 11/08/[address]: Sergio Humphries MD 2-DIMENSIONAL: YES M.MODE: YES DOPPLER: YES COLOR FLOW: YES TDS: NO PORTABLE: NO DEFINITY: NO BUBBLE STUDY: NO DIAGNOSIS: R EFFUSION CARDIAC HISTORY: CATHERIZATION: NO SURGERY: NO PROSTHETIC VALVE: NO PACEMAKER: NO MEASUREMENTS (cm) DIASTOLIC (NORMALS) SYSTOLIC (NORMALS) IVSd 1.2 (0.6-1.2) LA Diam 3.7 (1.9-4.0) LVEF 54% LVIDd 4.8 (3.5-5.7) LVIDs 3.5 (2.0-3.5) %FS 28% LVPWd 1.3 (0.6-1.2) Ao Diam 2.6 (2.0-3.7) 2 DIMENSIONAL ASSESSMENT: RIGHT ATRIUM: NORMAL LEFT ATRIUM: NORMAL RIGHT VENTRICLE: NORMAL LEFT VENTRICLE: NORMAL TRICUSPID VALVE: NORMAL MITRAL VALVE: NORMAL PULMONIC VALVE: NORMAL AORTIC VALVE: NORMAL PERICARDIAL EFFUSION: NONE AORTIC ROOT: NORMAL LEFT VENTRICULAR WALL MOTION: NORMAL. DOPPLER/COLOR FLOW: MILD MITRAL, AORTIC AND TRICUSPID REGURGITATION. COMMENTS: MILD MITRAL, AORTIC, AND TRICUSPID REGURGITATION. NORMAL LEFT VENTRICULAR SIZE AND FUNCTION. NO PERICARDIAL EFFUSION. TECHNOLOGIST: ISABELLA ESCOBAR
== END 2021-11-08 12:09 | disposition home or self-care (01) | DRG 291 ==
LOC: ER 17:19 → ERHOLD 22:23 → 2ND 11-07 14:30
PROVIDERS: ADMIT Internal Medicine; ATTEND Internal Medicine
DX: I13.0 Hypertensive heart and chronic kidney disease with heart failure and stage 1 through stage 4 chronic kidney disease, or unspecified chronic kidney disease (principal); I50.31 Acute diastolic (congestive) heart failure; N17.9 Acute kidney failure, unspecified; J91.8 Pleural effusion in other conditions classified elsewhere; N18.31 Chronic kidney disease, stage 3a; Z20.822 Contact with and (suspected) exposure to COVID-19
CPT/HCPCS: 0240U; 36415; 71045; 71046; 80048; 80053; 80076; 81003; 81015; 82947; 83735; 83880; 84484; 85025; 85610; 87040; 87077; 87086; 87088; 87186; 93005; 93306; 93970; 96365; 96366; 99285; J0360; J1650; J1940

== ENCOUNTER 2023-04-22 10:16 | Observation (INO) | payer BC, SELFPAY ==
[2023-04-22] MEDS ORDERED: D10W 250 ML IV ONE (11:01)
[2023-04-22] MEDS ORDERED: NA CHLORIDE 0.9% 500 ML ONE (11:01)
--- OUTSIDE RECORDS SUMMARY | 2023-04-22 11:09 | XMS REPORT | Continuity of Care Document ---
:1960 Author Organization [facility] t Address [address] [place] [address] Care Team Providers Name Role Phone Perry CLIFFORD, [place] Primary Care Physician Luciano Long MD Attending Clinician ILANA LINCOLN Attending Clinician Unavailable SAVANNAH GRANDE Attending Clinician Unavailable SAVANNAH GRANDE Attending Clinician Unavailable Marcial Munson MD Attending Clinician Karen Diehl RN Attending Clinician LUCIANO LONG Attending Clinician Unavailable Tatiana Cortés RN Attending Clinician Allyn Smith LVN Attending Clinician Charles Collado MD Attending Clinician ELOISA DUMONT Attending Clinician Unavailable Aimee Dickson MD Attending Clinician [phone] Isaac Vaughan DO Attending Clinician NOEL MORELAND Attending Clinician Unavailable Rebekah Odom MD Attending Clinician [phone] Elizabeth Galloway MD Attending Clinician Doctor Unassigned, [place] Attending Clinician Unavailable KIERSTEN OSORIO Attending Clinician Unavailable Kiersten Fuchs Attending Clinician Salazar TRINIDAD, Ilana Attending Clinician Edgar Michael MD Attending Clinician [facility] Attending Clinician Unavailable Aniceto TRINIDAD, Noel Attending Clinician Saima Quinones DO Attending Clinician SAIMA QUINONES Attending Clinician Unavailable SAIMA QUINONES Attending Clinician Unavailable Bety Boogie RN Attending Clinician Unavailable BRIAN MATTHEW Attending Clinician Unavailable Xiomara To MD Attending Clinician Montana Ríos MD, Jeremías Quiroz Attending Clinician [phone] Brian Matthew MD Attending Clinician ALICE BOLDEN Attending Clinician Unavailable Alice Pan Attending Clinician XIOMARA TO Attending Clinician Unavailable Millie Starr MD Attending Clinician Unknown, Attending Attending Clinician Unavailable MILLIE STARR Attending Clinician Unavailable Eloisa Dumont MD Attending Clinician LIZZETH LOPEZ Attending Clinician Unavailable LIZZETH LOPEZ Attending Clinician Unavailable 2, [facility] Attending Clinician Unavailable Nicole Clifford RN Attending Clinician Unavailable SIGRID ZAIDI Attending Clinician Unavailable Conor TRINIDAD, Brandy Harris Attending Clinician Milton Andrade MD Attending Clinician Ariel Bates MD Attending Clinician Sigrid Zaidi MD Attending Clinician Mohsen Ferreira MD Attending Clinician [phone] JANNET MAN Attending Clinician Unavailable REBEKAH BAILEY Attending Clinician Unavailable Rebekah Hinojosa Attending Clinician SIXTO MCKEON Attending Clinician Unavailable Oksana ONEILGrecia Juanito Attending Clinician Sixto Mckeon DO Attending Clinician Gabriela Gonzalez Attending Clinician LUCIANO LONG Admitting Clinician Unavailable KIERSTEN OSORIO Admitting Clinician Unavailable NOEL MORELAND Admitting Clinician Unavailable JEREMÍAS CASTRO JR Admitting Clinician Unavailable [place] Ríos MD, Victor J Admitting Clinician [phone] LIZZETH LOPEZ Admitting Clinician Unavailable MOHSEN FERREIRA Admitting Clinician Unavailable Mohsen Ferreira MD Admitting Clinician [phone] REBEKAH BAILEY Admitting Clinician Unavailable SIXTO MCKEON Admitting Clinician Unavailable Sixto Mckeon DO Admitting Clinician Payers Payer Name Policy Type Policy Number Effective Date Expiration Date S darren CASANOVA BCBS BLUE [id number] 2023 [facility] 00:00:00 Problems Condition Condition Condition Status Onset Resolution Last Treating Co mments Source Name Details Category Date Date Treatment Clinician Date S/P MVR S/P MVR Disease Active Univers (29mm St (29mm St 6-14 [facility]y [place] tissue tissue 00 Medical prosthesis prosthesis Br anch ) ) S/P AVR S/P AVR Disease Active Univers (21mm St (21mm St 6-14 [place]y [place] [facility] [place] [facility] [place] Supra Supra 00 Medical tissue tissue Branch prosthesis prosthesis ) ) S/P CABG x S/P CABG x Disease Active U nivers 1 1 6-14 ity of (GARCIA-LAD) (GARCIA-LAD[place] 00 Medical 02/13/2023 02/13/2023 Bran ch Gangrene Gangrene Disease Active Unive rs of toe of of toe of 5-18 ity of both feet both feet 00:00[place] Coronary Coronary Disease Active Unive rs artery artery 4-04 ity of disease disease 00:00: [place] involving involving 00 Medi joseph [place] Branch coronary coronary artery of artery of [place] heart heart without without angina angina pectoris pectoris E44.0 E44.0 Disease Active Univers Moderate Moderate 2-01 ity of protein protein 00:00: [place] calorie calorie 00 Medical malnutriti malnutriti Br anch on on Weakness Weakness Disease Active Unive rs 1-31 ity of 00:00: [place] 00 Medical Branch Acute on Acute on Disease Active 2021-09 Unive rs chronic chronic 2-30 ity of clinical clinical 00:00: [place] systolic systolic 00 Medica l heart heart Branch failure failure Obesity Obesity Disease Active 2021-09 Univers (BMI (BMI 2-30 ity of 30-39.9) 30-39.9) 00:00: [place] 00 Medical Branch Aortic Aortic Disease Active 2021-09 Univers stenosis stenosis 2-30 ity of 00:00: [place] 00 Medical Branch 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 Added automatic ally from request for surgery [id number] Nonrheumat Nonrheumat Disease Active 2021-09 U nivers ic mitral ic mitral 0-04 ity of valve valve 00:00: [place] stenosis stenosis 00 Medica l Branch Cardiomyop Cardiomyop Disease Active 2021-09 U nivers athy, athy, 0-04 ity of unspecifie unspecifie 00:[place] d type d type 00 Medical Branch Troponin I Troponin I Disease Active 2021-09 U nivers above above 0-04 ity of reference reference 00:00[place] range range 00 Medical Branch Pulmonary Pulmonary Disease Active Uni vers hypertensi hypertensi 7-01 it y of on on 00:00: [place] 00 Medical Branch Elevated Elevated Disease Active Unive rs brain brain 6-30 ity of natriureti natriureti 00:00[place] c peptide c peptide 00 Medi joseph (BNP) (BNP) Branch level level Elevated Elevated Disease Active Unive rs troponin I troponin I 630 it y of level level 00:00: Medical Branch COVID COVID Disease Active Univers 6-30 ity of 00:00: [place] Medical Branch Essential Essential Disease Active Uni vers hypertensi hypertensi 6-30 it y of on on 00:00: Medical Branch Acute on Acute on Disease Active Unive rs chronic chronic 630 ity of diastolic diastolic 00:00: [place] CHF CHF 00 Medical (congestiv (congestiv Br anch e heart e heart failure), failure), NYHA class NYHA class 3 3 Dyslipidem Dyslipidem Disease Active U nivers ia ia 6 ity of 00:00: [place] Medical Branch 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 00:00: [place] with other with other 00 Me dical specified specified Bran ch complicati complicati on on Acute Acute Disease Active Univers respirator respirator 630 it y of y failure y failure 00:00: [place] with with 00 Medical hypoxia hypoxia Branch History of History of Disease Active U nivers COVID-19 COVID-19 03-01 ity of 00:00: [place] [facility] Hypoxia Hypoxia Disease Active Univers 6 ity of 00:00: [place] Medical [facility] Abnormal Abnormal Disease Active Unive rs CT scan CT scan 02-27 ity of 00:00: [place] [facility] Branch Acute Acute Disease Active Univers kidney kidney 02-27 ity of injury injury 00:00: [place] superimpos superimpos 00 Me dical ed on CKD ed on CKD Bran ch Allergies, Adverse Reactions, Alerts Allergy Allergy Status Severity Reaction(s) Onset Inactive Treating Comm ents Source Name Type Date Date Clinician HEPARIN DRUG Active Other-Cmnt Unive rs INGREDI 03-05 ity of 00:00: [place] 00 Medical Branch Heparin Propensi Active Other - See HIT + Un pedro ty to comments 03-05 ity of adverse 00:00: [place] reaction 00 Medical s Branch NO KNOWN Drug Active Univers ALLERGIE Class ity of S [place] [facility] [place] Family History Family Member Diagnosis Comments Start Date Stop Date Source Natural brother Hypertension Univers ity of [place] [facility] [place] Natural father Cancer [facility] Natural mother Coronary Heart Univer sity of Disease [facility] Natural mother Stroke University [facility] Natural sister Hypertension Universi ty of [facility] Social History Social Habit Start Date Stop Date Quantity Comments Source Gender identity Universit y of [place] [facility] [place] Sexual orientation Univer sity of [place] [facility] [place] History of tobacco Passive smoker Un iversity of use [place] [facility] History SDOH Social Unive rsity of Connections [facility] Med ical Together Branch History SDOH Social Unive rsity of Connections [facility] Medical Branch History SDOH Social Unive rsity of Connections [place] [facility] Membership Branch History SDOH Social Unive rsity of Connections [place] [facility] Meet[facility] Branch Alcohol intake 2023-04-11 2023-04-11 1.29 /d University of 00:00:00 00:00:00 [facility] Tobacco use and 2023-02-21 2023-02-21 Smokeless Universit y of exposure 00:00:00 00:00:00 tobacco non-user [facility] dical Branch Cigarettes smoked 2023-02-21 2023-02-21 Univers ity of current (pack per 00:00:00 00:00:00 [facility] [place] [facility] edical day) - Reported Branch Cigarette 2023-02-21 2023-02-21 University of pack-years 00:00:00 00:00:00 [place] [facility] History SDOH 2023-02-15 2023-02-15 0 University o f Physical Activity 00:00:00 00:00:00 [place] M edical DPW Branch History SDOH 2023-02-15 2023-02-15 0 University o f Physical Activity 00:00:00 00:00:00 [place] M edical MPS Branch History SDOH 2023-02-15 2023-02-15 2 University o f Housing Unable to 00:00:00 00:00:00 [place] M edical Pay Branch History SDOH 2023-02-15 2023-02-15 1 University o f Housing Places 00:00:00 00:00:00 [facility] joseph Lived Branch History SDOH 2023-02-15 2023-02-15 2 University o f Housing Homeless 00:00:00 00:00:00 [place] Me dical Last Year Branch History SDOH 2023-02-15 2023-02-15 1 University o f Alcohol Frequency 00:00:00 00:00:00 [place] M edical Branch History SDOH Social 2023-02-15 2023-02-15 5 Unive rsity of Connections Phone 00:00:00 00:00:00 [facility] [place] [facility] edical Branch History SDOH Social 2023-02-15 2023-02-15 3 Unive rsity of Connections Living 00:00:00 00:00:00 [place] [facility] History of Social 2023-02-13 2023-02-13 Univers ity of function 00:00:00 00:00:00 [place] [facility] Exposure to 2023-01-07 2023-01-17 Not sure University of SARS-CoV-2 (event) 00:00:00 12:57:00 [place] [facility] History SDOH 2022-10-03 2022-10-03 0 University o f Alcohol Std Drinks 00:00:00 00:00:00 [place] [facility] History SDOH 2022-10-03 2022-10-03 1 University o f Alcohol Binge 00:00:00 00:00:00 [place] Medic al Branch History SDOH 2022-10-03 2022-10-03 5 University o f Financial 00:00:00 00:00:00 [place] [facility] History SDOH Food 2022-10-03 2022-10-03 1 Univers ity of Worry 00:00:00 00:00:00 [place] [facility] History SDOH Food 2022-10-03 2022-10-03 1 Univers ity of Scarcity 00:00:00 00:00:00 [place] [facility] History SDOH 2022-10-03 2022-10-03 2 University o f Transport Med 00:00:00 00:00:00 [place] Medic al Branch History SDOH 2022-10-03 2022-10-03 2 University o f Transport Non-Med 00:00:00 00:00:00 [facility] [place] [facility] edical Branch Alcohol Comment 2022-09-02 2022-09-02 drank a "whole Unive rsity of 00:00:00 00:00:00 lot" he states [place] Medi joseph "everyday" until Branch about 10 years ago Tobacco Comment 2022-08-31 2022-08-31 Quit 34 years Univer sity of 00:00:00 00:00:00 ago [facility] Sex Ass[birth year] At [birth year] Universit y of 00:00:00 00:00:00 [facility] Smoking Status Start Date Stop Date Source Ex-smoker 2023-02-21 00:00:00 2023-02-21 00:00:00 [facility] [place] Medications Ordered Filled Start Stop Current Ordering Indication Dosage Frequency Signature Comments Components Source Medication Medication Date Date Medication? Clinician (SIG) Name Name bumetanide Yes [id number] 1mg Take 1 Univers 1 mg tablet 8-17 tablet by ity of 00:00: mouth [place] 00 every Medical morning Branch and evening. insulin NPH Yes [id number] 10U inject 10 Univers 100 unit/mL 8-17 Units ity of injection 00:00: under the [place] 00 skin every Medical morning Branch and evening. clopidogreL Yes [id number] 75mg Take 1 Univers 75 mg 8-17 tablet by ity of tablet 00:00: mouth in [place] 00 the Medical morning. Branch bumetanide Yes [id number] 1mg Take 1 Univers 1 mg tablet 8-17 tablet by ity of 00:00: mouth [place] 00 every Medical morning Branch and evening. insulin NPH 2022- Yes [id number] 10U inject 10 Univers 100 unit/mL 8-17 Units ity of injection 00:00: under the [place] 00 skin every Medical morning Branch and evening. clopidogreL 2022-0 Yes [id number] 75mg Take 1 Univers 75 mg 8-17 tablet by ity of tablet 00:00: mouth in [place] 00 the Medical morning. Branch bumetanide 2022-0 Yes [id number] 1mg Take 1 Univers 1 mg tablet 8-17 tablet by ity of 00:00: mouth [place] 00 every Medical morning Branch and evening. insulin NPH 2022-0 Yes [id number] 10U inject 10 Univers 100 unit/mL 8-17 Units ity of injection 00:00: under the [place] 00 skin every Medical morning Branch and evening. clopidogreL 2022-0 Yes [id number] 75mg Take 1 Univers 75 mg 8-17 tablet by ity of tablet 00:00: mouth in [place] 00 the Medical morning. Branch pregabalin 0 Yes 25mg 25 mg, Unive rs (LYRICA) 04-01 Oral, ity of capsule 25 14:00: DAILY, [place] mg 00 First dose Medical (after Branch last modificati on) on 04/01/23 at 0900, Until Discontinu ed, Routine HYDROcodone 2022-0 Yes 7.5mg 7.5 mg, Un pedro -acetaminop 03-31 Oral, ity of hen (HYCET) 05:00: Q6HPRN, [place] 7.5-325 00 Starting Medical mg/15 mL on [place] Branch solution 03/31/23 at 7.5 mg 0000, Until Discontinu ed, Routine, Pain (scale 4-6) FENTanyl PF 0 Yes 50ug 50 mcg, Uni vers (SUBLIMAZE 03-30 Slow IV ity of (PF)) 14:51: Push, [place] injection 42 Q6HPRN, Medical 50 mcg Starting Branch on [facility] 03/30/23 at 0951, Until Discontinu ed, Routine, Pain (scale 7-10), For acute breakthrou gh pain, dressing changes clopidogreL Yes 75mg 75 mg, Univ ers (PLAVIX) 75 03-30 Oral, ity of mg tablet 14:00: DAILY, [place] 75 mg 00 First dose Medical on [facility] 03/30/23 at 0900, Until Discontinu ed, Routine methocarbam 0 Yes 1000mg 1,000 mg, Univers oL 03-30 Oral, QID, ity of (ROBAXIN) 13:00: [place] dose [place] tablet 00 (after Medical 1,000 mg last Branch modificati on) on [facility] 03/30/23 at 0800, Until Discontinu ed, Routine morpHINE (4 0 Yes 4mg 4 mg, Slow Univers mg/mL) 03-30 IV Push, ity of injection 4 12:12: Q4HPRN, [place] mg 40 Starting Medical on [facility] 03/30/23 at 0712, Until Discontinu ed, Routine, Pain (scale 7-10) insulin NPH 2022-0 Yes 10U 10 Units, U nivers (HUMULIN N) 03-29 Subcutaneo it y of injection 14:00: us, [place] 10 Units 00 QAM+PM, Medical First dose Branch (after last modificati on) on Sat03/29/23 at 0900, Until Discontinu ed, Routine iodixanoL 2022-0 2022- No PRN, Univers (VISIPAQUE 03-29 Starting ity of 270-150 mL) 13:50: 20:16 on Sat [place] injection 00 :03/29/23 at [facility] 0850, Branch Until Sat03/29/23 at 1516, Routine, Intra-op sodium 2022-0 2022- No PRN, Univers chloride 03-29 Starting ity of 0.9 % 13:50: 20:16 on Sat [place] irrigation 00 :03/29/23 at [facility] ical solution 0850, Branch Until Sat03/29/23 at 1516, Intra-op heparin 2022-0 2022- No PRN, Univers 10,000 03-29 Starting ity of units in NS 13:50: 20:16 on Sat [place] 1000 mL for 00 :27 03/29/23 at [place] dical vascular 0850, Branch Intra-op Sliding Yes Subcutaneo Univ ers Scale 03-29 us, Q6H, ity of Insulin - 05:00: [place] dose [place] Lispro 00 (after Medical (HumaLOG) last Branch modificati on) on Sat03/29/23 at 0000, Until Discontinu ed, Routine bumetanide Yes 2mg 2 mg, Univer s (BUMEX) 03-27 Oral, ity of tablet 2 mg 20:03: QAM+PM, [place] 00 First dose Medical on Sat Branch 03/27/23 at 1515, Until Discontinu ed, Routine heparin 2022-0 2022- No PRN, Univers 10,000 03-25 Starting ity of units in NS 19:04: 19:25 on Sat [place] 1000 mL for 00 :16 03/25/23 at [place] dical vascular 1404, Branch Intra-op lidocaine 2022-0 2022- No PRN, Univers 1% (PF) 03-25 Starting ity of (XYLOCAINE) 19:01: 19:25 on Sat [place] injection 00 :16 03/25/23 at Medi joseph 1401, Branch Until 03/25/23 at 1425, Routine, Intra-op insulin NPH 2022-0 Yes 20U 20 Units, U nivers (HUMULIN N) 03-24 Subcutaneo it y of injection 14:00: us, [place] 20 Units 00 QAM+PM, Medical First dose Branch (after last modificati on) on Sat03/24/23 at 0900, Until Discontinu ed, Routine metoprolol 3-0 Yes 12.5mg 12.5 mg, U nivers tartrate 7-21 Oral, BID, ity o f (LOPRESSOR) 14:00: First dose [place] tablet 12.5 00 (after Medica l mg last Branch modificati on) on Sat03/22/23 at 0900, Until Discontinu ed, Routine metoprolol 2022-0 Yes 12.5mg 12.5 mg, U nivers tartrate -21 Oral, BID, ity o f (LOPRESSOR) 14:00: First dose [place] tablet 12.5 00 (after Medica l mg last Branch modificati on) on Sat03/22/23 at 0900, Until Discontinu ed, Routine magnesium 2022-0 Yes 400mg 400 mg, Univ ers oxide 7-18 Oral, ity of (MAG-OX 14:00: DAILY, [place] 400) tablet 00 First dose Me dical 400 mg on Sat03/19/23 at 0900, Until Discontinu ed, Routine magnesium 3-0 Yes 400mg 400 mg, Univ ers oxide 7-18 Oral, ity of (MAG-OX 14:00: DAILY, [place] 400) tablet 00 First dose Me dical 400 mg on Sat03/19/23 at 0900, Until Discontinu ed, Routine sodium 2022-0 Yes 1{spray 1 [place], Univ ers chloride 7-13 } Nasal, ity of (OCEAN MIST 03:30: PRN, [place] NASAL) 0.65 37 Starting Medi joseph % nasal on Sat Branch spray 1 03/13/23 at [place] 2230, Until Discontinu ed, Routine, Nasal stuffiness sodium 3-0 Yes 1{spray 1 [place], Univ ers chloride 7-13 } Nasal, ity of (OCEAN MIST 03:30: PRN, [place] NASAL) 0.65 37 Starting Medi joseph % nasal on Sat Branch spray 1 03/13/23 at [place] 2230, Until Discontinu ed, Routine, Nasal stuffiness albuterol 2023-0 Yes 2.5mg 2.5 mg, Univ ers (PROVENTIL) 7-12 Inhalation it y of 2.5 mg /3 13:00: , QID, [place] mL (0.083 00 First dose Medi joseph %) on [facility] Branch nebulizer 03/13/23 at solution 0800, 2.5 mg Until Discontinu ed, Routine ipratropium 2023-0 Yes .5mg 0.5 mg, Uni vers (ATROVENT) 7-12 Inhalation ity of 0.02 % 13:00: , QID, [place] nebulizer 00 First dose Medi joseph solution on [facility] Branch 0.5 mg 03/13/23 at 0800, Until Discontinu ed, Routine albuterol 2023-0 Yes 2.5mg 2.5 mg, Univ ers (PROVENTIL) 7-12 Inhalation it y of 2.5 mg /3 13:00: , QID, [place] mL (0.083 00 First dose Medi joseph %) on [facility] nebulizer 03/13/23 at solution 0800, 2.5 mg Until Discontinu ed, Routine ipratropium 2023-0 Yes .5mg 0.5 mg, Uni vers (ATROVENT) 7-12 Inhalation ity of 0.02 % 13:00: , QID, [place] nebulizer 00 First dose Medi joseph solution on [facility] Branch 0.5 mg 03/13/23 at 0800, Until Discontinu ed, Routine docusate 2023-0 Yes 100mg 100 mg, Unive rs (COLACE) 50 7-11 Oral, ity of mg/5 mL 14:00: DAILY, [place] solution 00 First dose Medic al 100 mg on [facility] Branch 03/12/23 at 0900, Until Discontinu ed, Routine docusate 2023-0 Yes 100mg 100 mg, Unive rs (COLACE) 50 7-11 Oral, ity of mg/5 mL 14:00: DAILY, [place] solution 00 First dose Medic al 100 mg on [facility] Branch 03/12/23 at 0900, Until Discontinu ed, Routine gabapentin 2023-0 Yes 100mg 100 mg, Uni vers (NEURONTIN) 7-10 Oral, TID, it y of 300 mg/6 mL 19:00: First dose [place] oral 00 on Mon Medical solution 03/11/23 at [facility] h 100 mg 1400, Until Discontinu ed, Routine HYDROcodone 2022-0 Yes 5mg 5 mg, Unive rs -acetaminop 7-10 Oral, ity of hen (HYCET) 16:12: Q6HPRN, [place] 7.5-325 41 Starting Medical mg/15 mL on Mon Branch solution 5 03/11/23 at mg 1112, Until Discontinu ed, Routine, Pain (scale 4-6), Pain (scale 7-10) Sliding 2022-0 Yes Subcutaneo Univ ers Scale 7-09 us, Q4H, ity of Insulin - 01:00: First dose [place] Lispro 00 (after Medical (HumaLOG) last Branch modificati on) on 03/09/23 at 2000, Until Discontinu ed, Routine NaCl 0.9% 2022-0 Yes 10mL 10 mL, Univer s (NS) 7-06 Slow IV ity of injection 14:06: [place], [place]N, [place] 10 mL 27 Starting Medical on [facility] Branch 03/07/23 at 0906, Until Discontinu ed, Routine, line maintenanc e NaCl 0.9% 2022-0 Yes 10mL 10 mL, Univer s (NS) 7-06 Slow IV ity of injection 14:06: [place], [place]N, [place] 10 mL 27 Starting Medical on [facility] Branch 03/07/23 at 0906, Until Discontinu ed, Routine, line maintenanc e sennosides 2022-0 Yes 8.6mg 8.6 mg, Uni vers (SENOKOT) 03-04 Oral, ity of tablet 8.6 14:00: DAILY, [place] mg 00 First dose Medical on [facility] Branch 03/04/23 at 0900, Until Discontinu ed, Routine sennosides 2022-0 Yes 8.6mg 8.6 mg, Uni vers (SENOKOT) 03-04 Oral, ity of tablet 8.6 14:00: DAILY, [place] mg 00 First dose Medical on [facility] Branch 03/04/23 at 0900, Until Discontinu ed, Routine aspirin 0 Yes 81mg 81 mg, Univers chewable 6-29 Oral, ity of tablet 81 14:00: DAILY, [place] mg 00 First dose Medical (after Branch last modificati on) on Sat02/28/23 at 0900, Until Discontinu ed, Routine aspirin 3-0 Yes 81mg 81 mg, Univers chewable 02-28 Oral, ity of tablet 81 14:00: DAILY, [place] mg 00 First dose Medical (after Branch last modificati on) on Sat02/28/23 at 0900, Until Discontinu ed, Routine atorvastati 2022-0 Yes 40mg 40 mg, Univ ers n (LIPITOR) 6- Oral, QHS, it y of tablet 40 02:00: First dose [place] mg 00 (after Medical last Branch modificati on) on Sat02/27/23 at 2100, Until Discontinu ed, Routine atorvastati 2022-0 Yes 40mg 40 mg, Univ ers n (LIPITOR) 6- Oral, QHS, it y of tablet 40 02:00: First dose [place] mg 00 (after Medical last Branch modificati on) on Sat02/27/23 at 2100, Until Discontinu ed, Routine glucagon 3-0 Yes 1mg 1 mg, Univers (GLUCAGEN 02-27 Intramuscu ity of DIAGNOSTIC 04:39: [place], PRN, [place] KIT) 51 Starting Medical injection 1 on Sat [place] mg 02/26/23 at 2339, Until Discontinu ed, JOSE, Blood Glucose < or = 70 mg/dL and patient is NPO, unable to swallow or has mental changes. glucagon 3-0 Yes 1mg 1 mg, Univers (GLUCAGEN 02-27 Intramuscu ity of DIAGNOSTIC 04:39: [place], PRN, [place] KIT) 51 Starting Medical injection 1 on Sat Branch mg 02/26/23 at 2339, Until Discontinu ed, JOSE, Blood Glucose < or = 70 mg/dL and patient is NPO, unable to swallow or has mental changes. pantoprazol 3-0 Yes 40mg 40 mg, Univ ers e 02-26 Enteral, ity of (PROTONIX) 14:00: DAILY, [place] 2 mg/mL 00 First dose Medica l oral on Sat suspension 02/26/23 at 40 mg 0900, Until Discontinu ed, Routine pantoprazol 2022-0 Yes 40mg 40 mg, Univ ers e 02-26 Enteral, ity of (PROTONIX) 14:00: DAILY, [place] 2 mg/mL 00 First dose Medica l oral on Sat Branch suspension 02/26/23 at 40 mg 0900, Until Discontinu ed, Routine dextrose 50 2022-0 Yes 50mL 50 mL, Univ ers % in water 02-22 Slow IV ity of (D50W) 07:07: Push, PRN, [place] injection 51 Starting Medica l 50 mL on Sat Branch 02/22/23 at 0207, Until Discontinu ed, Routine, Blood Glucose <= 70 dextrose 50 3-0 Yes 50mL 50 mL, Univ ers % in water 02-22 Slow IV ity of (D50W) 07:07: Push, PRN, [place] injection 51 Starting Medica l 50 mL on Sat Branch 02/22/23 at 0207, Until Discontinu ed, Routine, Blood Glucose <= 70 sennosides- 2022-0 Yes 2{tbl} 2 tablet, Univers docusate 02-15 Enteral, ity of sodium 14:00: DAILY, [place] (SENOKOT-S) 00 First dose Me dical 8.6-50 mg on Sat per tablet 02/15/23 at 2 tablet 0900, Until Discontinu ed, Routine aspirin 2022-0 Yes 81mg 81 mg, Univers chewable 02-15 Enteral, ity of tablet 81 14:00: DAILY, [place] mg 00 First dose Medical (after Branch last modificati on) on Sat02/15/23 at 0900, Until Discontinu ed, Routine Lidocaine 2022-0 Yes 1{patch 1 Patch, U nivers (LIDOCARE) 02-15 } Topical, ity o f 4 % patch 1 14:00: Administer [place] Patch 00 over 12 Medical Hours, Branch DAILY, First dose on Sat02/15/23 at 0900, Until Discontinu ed, Routine atorvastati 2022-0 Yes 40mg 40 mg, Univ ers n (LIPITOR) 02-15 Enteral, ity of tablet 40 02:00: QHS, First [place] mg 00 dose Medical (after Branch last modificati on) on Sat02/14/23 at 2100, Until Discontinu ed, Routine fentaNYL PF 2022-0 Yes 25ug/h 25-100 [facility] [place] (SUBLIMAZE) 6-15 mcg/hr ity of STD 2,500 21:57: (2.5-10 [place] mcg in NaCl 16 mL/hr), IV Me dical 0.9% (NS) Infusion, Branc h 250 mL TITRATE, infusion CPOT/Pain RTU Scale Goals Determined by Provider, Starting on Shahnaz 02/14/23 at 1657
In itiate infusion at 25 mcg/hr. Titrate by 25 mcg/hr every 1 minute to 15 minutes to identified goal pain and/or sedation scores. Maximum dose = 200 mcg/hr. If goal not maintained at maximum allowed dose, contact prescriber .
HYDROcodone 0 Yes 5mg 5 mg, Unive rs -acetaminop 6-15 Enteral, ity of hen (HYCET) 17:51: Q4HPRN, [place] as 7.5-325 53 Starting Medical mg/15 mL on Shahnaz Branch solution 5 02/14/23 at mg 1251, Until Discontinu ed, Routine, Pain (scale 1-3) Sliding 2022-0 Yes Subcutaneo Univ ers Scale 6-15 us, Q4H, ity of Insulin - 17:00: First dose [place] Lispro 00 on Shahnaz Medical (HumaLOG) 02/14/23 at Bran ch 1200, Until Discontinu ed, Routine insulin 2022-0 Yes 18U/h 18 [facility] regular 6-15 Units/hr ity of human 16:19: (18 [place] (HUMULIN R) 24 mL/hr), IV Me dical 100 Units Infusion, Branc h in NaCl TITRATE, 0.9% (NS) Parameters 100 mL in Admin. infusion Instr., Starting on Shahnaz 02/14/23 at 1119
PL EASE USE NORMOGLYCE YEIMY CALCULATOR &nbs p;For Patients WITHOUT ESRD: IN ITIATION OF INSULIN DRIP:&nb sp; I f two consecutiv e blood glucose levels (BG) are at or above 180 mg/dL: begin continuous intravenou s infusion of regular Insulin (100 units/100 mL NS) at the following rate: as follows:&n bsp; 1 unit/hr (1 mL/hr.) if initial BG between 180 and 220 mg/dL OR 2 units/hr (2 mL/hr.) if initial BG above 220 mg/dL. &nbs p;Check BG at least every hour until three consecutiv e BG measuremen ts remain in the 140- 180 mg/dL range; BG monitoring may then change to every 2 hours if patient is otherwise stable. Go back to closer BG monitoring as soon as condition warrants. &nbs p; INSULIN RATE ADJUSTMENT INSTRUCTIO NS (to keep BG in the 140- 180 mg/dL range) &n bsp;FOR BLOOD GLUCOSE LESS THAN OR EQUAL THAN 70 MG/DL: Stop insulin infusion, notify ICU warehouse operations associate, and treat using hypoglycem ia protocol. Once BG &n bsp;greate r than 80 mg/dL start monitoring glucose every hour. Restart Insulin infusion at HALF of prior rate only when TWO consecutiv e BG levels 1 hour apart are at or above 180 mg/dL. &nbs p;FOR BLOOD GLUCOSE BETWEEN 71-139 MG/DL:&nbs p; St op insulin and continue to check BG every hour.&nbsp ; Res tart insulin infusion at HALF of prior rate once BG is above 140 mg/dL.&nbs p; FO R BLOOD GLUCOSE BETWEEN 140-180 MG/DL: Monitor BG hourly; may recheck BG in 2 hours if BG has been stable within this range for THREE consecutiv e readings.& nbsp;&nbsp ;If BG is stable (+/- 20 mg/dL change) at 140-180 mg/dL, no insulin rate change is needed.&nb sp; If BG hourly levels decreasing by more than 20 mg/dL: DECREASE insulin rate by 1 unit/hr. If BG hourly levels increasing by more than 20 mg/dL: INCREASE insulin rate by 0.5 unit/hr.&n bsp; FOR BLOOD GLUCOSE ABOVE 180 MG/DL: Monitor BG hourly. If BG falls by less than 40 mg/dL from previous measure, increase insulin rate by 1 unit an hour if BG is between 180 and 220 mg/dL and by 2 units an hour if BG is above 220 mg/dL. Recheck BG in 1 hour.&nbsp ; If BG falls by 40 mg/dL or more from previous measure, then no rate change is needed.&nb sp; N otify ICU Certified Driver Examiner if BG remains above 220 mg/dL for longer than 4 hours despite treatment.
methocarbam 2023-0 Yes 1000mg 1,000 mg, Univers ol 6-15 Enteral, ity of (ROBAXIN) 15:00: QID, First [place] 50 mg/mL 00 dose on Medical oral [place] Branch suspension 02/14/23 at 1,000 mg 1000, Until Discontinu ed, Routine acetaminoph 2023-0 Yes 650mg 650 mg, [place] en -15 Enteral, ity of (TYLENOL) 15:00: Q8H, First [place] 160 mg/5 mL 00 dose on Medic al oral liquid Shahnaz Branch 650 mg 02/14/23 at 1000, Until Discontinu ed, Routine lactated 2022-0 Yes 1000mL at 50 Univer s ringers IV 6-15 mL/hr, ity of infusion 14:00: 1,000 mL, [place] 1,000 mL 00 IV Medical Infusion, Branch CONTINUOUS , Starting on Shahnaz 02/14/23 at 0900, Until Discontinu ed, Routine vasopressin 2022-0 Yes .05U/mi 0.05 Uni vers (VASOSTRICT 6-15 n Units/min ity of ) 20 13:45: (15 [place] Units/100 00 mL/hr), IV Medi joseph mL RTU vial Infusion, Bra nyh infusion CONTINUOUS , Starting on Shahnaz 02/14/23 at 0845
DO NOT TITRATE
heparin 2023-0 Yes 5000U 5,000 Univers (porcine) 6-15 Units, ity of injection 13:00: Subcutaneo [place] 5,000 Units 00 us, Q12H, Med ical First dose Branch on Shahnaz 02/14/23 at 0800, Until Discontinu ed, Routine glucagon 3-0 Yes 1mg 1 mg, Univers (GLUCAGEN -15 Intramuscu ity of DIAGNOSTIC 03:50: lar, PRN, [place] KIT) 24 Starting Medical injection 1 on Sat Branch mg 02/13/23 at 2250, Until Discontinu ed, JOSE, Blood Glucose < or = 70 mg/dL and patient is NPO, unable to swallow or has mental changes. milrinone 2022-0 Yes .125ug/ 0.125-0.38 Univers in 5 % 6-15 kg/min mcg/kg/min ity o f dextrose 02:16: ?106.3 kg [place] (PRIMACOR) 30 (3.9863-12 Med ical 20 mg/100 .1182 Branch mL (200 mL/hr, mcg/mL) rounded to infusion 3.99-12.12 RTU mL/hr), IV Infusion, TITRATE, Cardiac Index > 2 L/min/m2, Starting on Sat02/13/23 at 2115
In itiate infusion at 0.125 mcg/kg/min . &nb sp;Increas e by 0.125 mcg/kg/min every 15 minutes as needed to reach and maintain goal blood pressure.& nbsp;&nbsp ;Maximum dose = 0.75 mcg/kg/min . If goal not maintained at maximum allowed dose, contact prescriber .
furosemide 2022-0 Yes 20mg 20 mg, IV [place] (LASIX) 6-15 Push, PRN, ity of injection 02:16: 2 doses, [place] 20 mg 30 Starting Medical on Sat [place] 02/13/23 at 2116, Until Discontinu ed, JOSE, Pressure Maintenanc e dextrose 2022-0 Yes 250mL 250 mL, IV [place] 10% (D10W) 6-15 Infusion, ity of bolus 02:16: PRN - SEE [place] infusion 30 INSTRUCTIO Medic al 250 mL NS, Branch Administer over 60 Minutes, Other, If blood glucose is < or = 70 mg/dL and patient is unable to swallow or has mental status changes, Starting on Sat02/13/23 at 2116
If blood glucose is < or = 70 mg/dL and patient is unable to swallow or has mental status changes (Give glucagon order if patient needs fluid restrictio n): IF IV access available: Dextrose 10%. 1. 125 mL (? bag) of D10W IV infusion - equivalent to 12.5 g dextrose 2. Blood glucose - draw blood glucose 15 minutes after D10W Administra tion. 3. If blood glucose is < 80 mg/dL, repeat.
naloxone 2022-0 Yes .1mg 0.1 mg, Univer s (NARCAN) 6-15 Slow IV ity of injection 02:16: Push, [place] 0.1 mg 29 SEE-INSTRU [facility] CTIONS, Branch Starting on Sat02/13/23 at 2116, Until Discontinu ed, Routine naloxone 2022-0 Yes .1mg 0.1 mg, Univer s (NARCAN) 6-15 Slow IV ity of injection 02:16: Push, [place] [facility] Starting on Sat02/13/23 at 2116, Until Discontinu ed, Routine naloxone 2022-0 Yes .1mg 0.1 mg, Univer s (NARCAN) 6-15 Slow IV ity of injection 02:16: Push, [place] 0.1 [facility] [address] [facility] [address] Starting on Sat02/13/23 at 2116, Until Discontinu ed, Routine propofoL IV 2022-0 2022- Yes 5ug/kg/ 5-50 [place] infusion 02-14 06-16 min mcg/kg/min ity of 02:16: 02:15 ?106.3 kg [place] 29 :29 (3.189-31. Medical 89 mL/hr, Branch rounded to 3.19-31.89 mL/hr), IV Infusion, TITRATE, Sedation-R ASS score (0 to -1), Starting on Sat02/13/23 at 2116, For 1 day
Ini tiate infusion at 5 mcg/kg/min and titrate by 5 mcg/kg/min every 30 seconds to 10 minutes to goal sedation score. Maximum dose = 50 mcg/kg/min . If goal not maintained at maximum allowed dose, contact prescriber . &nbs p;Instruct ions in the first 2 hours in ICU, if patient is hypertensi ve (systolic blood pressure persists > 150 MAP > 100), the infusion rate may be increased to a maximum of 50 mcg/kg/min . Stop propofol when bladder or other central temperatur e is => 36 C. May use morphine at this time (may require order to be entered) if sedation is still needed. Do not continue propofol after central temperatur e is > 36 C unless requested by [address] Resident or Faculty or SICU Faculty. Tubing and unused portions of vials should be discarded after 12 hours
metFORMIN 2022-0 Yes [id number] 1000mg Take 1 Univers 1,000 mg 6-15 tablet by ity of tablet 00:00: mouth in [place] 00 the [facility] morning [place] and 1 tablet in the evening. Take with meals. metFORMIN 2022-0 Yes [id number] 1000mg Take 1 Univers 1,000 mg 6-15 tablet by ity of tablet 00:00: mouth in [place] 00 the [facility] morning Branch and 1 tablet in the evening. Take with meals. metFORMIN 2022-0 Yes [id number] 1000mg Take 1 Univers 1,000 mg 6-15 tablet by ity of tablet 00:00: mouth in [place] 00 the [facility] morning [place] and 1 tablet in the evening. Take with meals. metFORMIN 2022-0 2022- No [id number] 1000mg Take 1 Univers 1,000 mg 6-15 05-20 tablet by ity o f tablet 00:00: 00:00 mouth in [place] 00 :00 the [facility] morning [place] and 1 tablet in the evening. Take with meals. metFORMIN 2022-0 2022- No [id number] 1000mg Take 1 Univers 1,000 mg 6-15 05-20 tablet by ity o f tablet 00:00: 00:00 mouth in [place] 00 :00 the [facility] and 1 tablet in the evening. Take with meals. thrombin 2022- No PRN, Univers (recombinan 02-13 Starting ity of t) 12:56: 01:17 on Sat (RECOTHROM) 00 :03 02/13/23 at [place] dical topical 0756, Branch solution Until Sat02/13/23 at 2017, Routine, Intra-op ceFAZolin 2022- No PRN, Univers (ANCEF) 1 g 02-13 Starting ity of in NaCl 12:56: 01:17 on Sat 0.9% (NS) 00 :03 02/13/23 at [facility] joseph 1,000 mL OR 0756, Branch irrigation Intra-op heparin 2022- No PRN, Univers 1,000 6-14 06-15 Starting ity of unit/mL 12:55: 01:17 on Wed [place] 5,000 00 :03 02/13/23 at Medical Units, 0755, Branch papaverine Intra-op 30 mg in NaCl 0.9% (NS) 500 mL OR irrigation heparin 2022- No PRN, Univers 1,000 02-1315 Starting ity of unit/mL 12:55: 01:17 on Sat [place] 2,500 00 :03 02/13/23 at Medical Units, 0755, Branch papaverine Intra-op 60 mg in NaCl 0.9% (NS) 100 mL OR irrigation heparin 2022- No PRN, Univers 1,000 02-1315 Starting ity of unit/mL 12:54: 01:17 on Sat 30,000 00 :03 02/13/23 at Medical Units in 0754, Branch NaCl 0.9% Intra-op (NS) 1,000 mL OR irrigation insulin NPH Yes [id number] 22U inject 22 Univers and regular 5-23 Units ity of human 70-30 00:00: under the [place] (NOVOLIN 00 skin 2 Medical 70/30 U-100 (two) Branch INSULIN) times 100 unit/mL daily (70-30) before injection breakfast and dinner. insulin NPH Yes [id number] 22U inject 22 Univers and regular 5-23 Units ity of human 70-30 00:00: under the [place] (NOVOLIN 00 skin 2 Medical 70/30 U-100 (two) Branch INSULIN) times 100 unit/mL daily (70-30) before injection breakfast and dinner. insulin NPH 0 Yes [id number] 22U inject 22 Univers and regular 5-23 Units ity of human 70-30 00:00: under the [place] (NOVOLIN 00 skin 2 Medical 70/30 U-100 (two) Branch INSULIN) times 100 unit/mL daily (70-30) before injection breakfast and dinner. insulin NPH 0 Yes [id number] 22U inject 22 Univers and regular 5-23 Units ity of human 70-30 00:00: under the [place] (NOVOLIN 00 skin 2 Medical 70/30 U-100 (two) Branch INSULIN) times 100 unit/mL daily (70-30) before injection breakfast and dinner. insulin NPH 3-0 Yes [id number] 22U inject 22 Univers and regular 5-23 Units ity of human 70-30 00:00: under the [place] (NOVOLIN 00 skin 2 Medical 70/30 U-100 (two) Branch INSULIN) times 100 unit/mL daily (70-30) before injection breakfast and dinner. insulin NPH 3-0 Yes [id number] 22U inject 22 Univers and regular 5-23 Units ity of human 70-30 00:00: under the [place] (NOVOLIN 00 skin 2 Medical 70/30 U-100 (two) Branch INSULIN) times 100 unit/mL daily (70-30) before injection breakfast and dinner. insulin NPH 2022-0 Yes [id number] 22U inject 22 Univers and regular 5-23 Units ity of human 70-30 00:00: under the [place] (NOVOLIN 00 skin 2 Medical 70/30 U-100 (two) Branch INSULIN) times 100 unit/mL daily (70-30) before injection breakfast and dinner. insulin NPH 2022-0 Yes [id number] 22U inject 22 Univers and regular 5-23 Units ity of human 70-30 00:00: under the [place] (NOVOLIN 00 skin 2 Medical 70/30 U-100 (two) Branch INSULIN) times 100 unit/mL daily (70-30) before injection breakfast and dinner. insulin NPH 3-0 Yes [id number] 22U inject 22 Univers and regular 5-23 Units ity of human 70-30 00:00: under the [place] (NOVOLIN 00 skin 2 Medical 70/30 U-100 (two) Branch INSULIN) times 100 unit/mL daily (70-30) before injection breakfast and dinner. insulin NPH 3-0 Yes [id number] 22U inject 22 Univers and regular 5-23 Units ity of human 70-30 00:00: under the [place] (NOVOLIN 00 skin 2 Medical 70/30 U-100 (two) Branch INSULIN) times 100 unit/mL daily (70-30) before injection breakfast and dinner. insulin NPH 3-0 Yes [id number] 22U inject 22 Univers and regular 5-23 Units ity of human 70-30 00:00: under the [place] (NOVOLIN 00 skin 2 Medical 70/30 U-100 (two) Branch INSULIN) times 100 unit/mL daily (70-30) before injection breakfast and dinner. insulin NPH 2023-0 Yes [id number] 22U inject 22 Univers and regular 5-23 Units ity of human 70-30 00:00: under the [place] (NOVOLIN 00 skin 2 Medical 70/30 U-100 (two) Branch INSULIN) times 100 unit/mL daily (70-30) before injection breakfast and dinner. insulin NPH 2023-0 Yes [id number] 22U inject 22 Univers and regular 5-23 Units ity of human 70-30 00:00: under the [place] (NOVOLIN 00 skin 2 Medical 70/30 U-100 (two) Branch INSULIN) times 100 unit/mL daily (70-30) before injection breakfast and dinner. insulin NPH 2023-0 Yes [id number] 22U inject 22 Univers and regular 5-23 Units ity of human 70-30 00:00: under the [place] (NOVOLIN 00 skin 2 Medical 70/30 U-100 (two) Branch INSULIN) times 100 unit/mL daily (70-30) before injection breakfast and dinner. insulin NPH 3-0 Yes [id number] 22U inject 22 Univers and regular 5-23 Units ity of human 70-30 00:00: under the [place] (NOVOLIN 00 skin 2 Medical 70/30 U-100 (two) Branch INSULIN) times 100 unit/mL daily (70-30) before injection breakfast and dinner. insulin NPH 3-0 Yes [id number] 22U inject 22 Univers and regular 5-23 Units ity of human 70-30 00:00: under the [place] (NOVOLIN 00 skin 2 Medical 70/30 U-100 (two) Branch INSULIN) times 100 unit/mL daily (70-30) before injection breakfast and dinner. glipiZIDE 2023-0 Yes [id number] 10mg Take 1 U nivers XL 10 mg 24 5-20 tablet by ity of hr tablet 00:00: mouth [place] 00 daily with Medical breakfast. Branch glipiZIDE 2023-0 Yes [id number] 10mg Take 1 U nivers XL 10 mg 24 5-20 tablet by ity of hr tablet 00:00: mouth [place] 00 daily with Medical breakfast. Branch glipiZIDE 2022-0 Yes [id number] 10mg Take 1 U nivers XL 10 mg 24 5-20 tablet by ity of hr tablet 00:00: mouth [place] 00 daily with Medical breakfast. Branch glipiZIDE 2022-0 Yes [id number] 10mg Take 1 U nivers XL 10 mg 24 5-20 tablet by ity of hr tablet 00:00: mouth [place] 00 daily with Medical breakfast. Branch glipiZIDE 2022-0 Yes [id number] 10mg Take 1 U nivers XL 10 mg 24 5-20 tablet by ity of hr tablet 00:00: mouth [place] 00 daily with Medical breakfast. Branch glipiZIDE 2022-0 Yes [id number] 10mg Take 1 U nivers XL 10 mg 24 5-20 tablet by ity of hr tablet 00:00: mouth [place] 00 daily with Medical breakfast. Branch glipiZIDE 2022-0 Yes [id number] 10mg Take 1 U nivers XL 10 mg 24 5-20 tablet by ity of hr tablet 00:00: mouth 00 daily with Medical breakfast. Branch glipiZIDE 2022-0 Yes [id number] 10mg Take 1 U nivers XL 10 mg 24 5-20 tablet by ity of hr tablet 00:00: mouth 00 daily with Medical breakfast. Branch glipiZIDE 2022-0 Yes [id number] 10mg Take 1 U nivers XL 10 mg 24 5-20 tablet by ity of hr tablet 00:00: mouth 00 daily with Medical breakfast. Branch glipiZIDE 2022-0 Yes [id number] 10mg Take 1 U nivers XL 10 mg 24 5-20 tablet by ity of hr tablet 00:00: mouth [place] 00 daily with Medical breakfast. Branch glipiZIDE 2022-0 Yes [id number] 10mg Take 1 U nivers XL 10 mg 24 5-20 tablet by ity of hr tablet 00:00: mouth [place] 00 daily with Medical breakfast. Branch glipiZIDE 2022-0 Yes [id number] 10mg Take 1 U nivers XL 10 mg 24 5-20 tablet by ity of hr tablet 00:00: mouth [place] 00 daily with Medical breakfast. Branch glipiZIDE 2022-0 Yes [id number] 10mg Take 1 U nivers XL 10 mg 24 5-20 tablet by ity of hr tablet 00:00: mouth [place] 00 daily with Medical breakfast. Branch glipiZIDE 2022-0 Yes [id number] 10mg Take 1 U nivers XL 10 mg 24 5-20 tablet by ity of hr tablet 00:00: mouth [place] 00 daily with Medical breakfast. Branch glipiZIDE 2022-0 Yes [id number] 10mg Take 1 U nivers XL 10 mg 24 5-20 tablet by ity of hr tablet 00:00: mouth [place] 00 daily with Medical breakfast. Branch glipiZIDE 2022-0 Yes [id number] 10mg Take 1 U nivers XL 10 mg 24 5-20 tablet by ity of hr tablet 00:00: mouth [place] 00 daily with Medical breakfast. Branch glipiZIDE 2022-0 Yes [id number] 10mg Take 1 U nivers XL 10 mg 24 5-20 tablet by ity of hr tablet 00:00: mouth [place] 00 daily with Medical breakfast. Branch glipiZIDE 2022-0 Yes [id number] 10mg Take 1 U nivers XL 10 mg 24 5-20 tablet by ity of hr tablet 00:00: mouth [place] 00 daily with Medical breakfast. Branch glipiZIDE 2022-0 Yes [id number] 10mg Take 1 U nivers XL 10 mg 24 5-20 tablet by ity of hr tablet 00:00: mouth [place] 00 daily with Medical breakfast. Branch glipiZIDE 2022-0 Yes [id number] 10mg Take 1 U nivers XL 10 mg 24 5-20 tablet by ity of hr tablet 00:00: mouth [place] 00 daily with Medical breakfast. Branch glipiZIDE 2022-0 Yes [id number] 10mg Take 1 U nivers XL 10 mg 24 5-20 tablet by ity of hr tablet 00:00: mouth [place] 00 daily with Medical breakfast. Branch metFORMIN 2022-0 Yes [id number] 500mg Take 1 U nivers 500 mg 5-17 tablet by ity of tablet 00:00: mouth [place] 00 the Medical morning Branch and 1 tablet in the evening. Take with meals. metFORMIN 2022-0 Yes [id number] 500mg Take 1 U nivers 500 mg 5-17 tablet by ity of tablet 00:00: mouth in 00 the Medical morning Branch and 1 tablet in the evening. Take with meals. metFORMIN 2022-0 Yes [id number] 500mg Take 1 U nivers 500 mg 5-17 tablet by ity of tablet 00:00: mouth in [place] the morning Branch and 1 tablet in the evening. Take with meals. metFORMIN 2022-2022- No [id number] 500mg Take 1 Univers 500 mg 5-17 05-20 tablet by ity of tablet 00:00: 00:00 mouth in [place] 00 :00 the morning Branch and 1 tablet in the evening. Take with meals. metFORMIN 2022-2022- No [id number] 500mg Take 1 Univers 500 mg 5-17 05-20 tablet by ity of tablet 00:00: 00:00 mouth in [place] 00 :00 the morning Branch and 1 tablet in the evening. Take with meals. atorvastati 0 Yes [id number] 40mg Take 1 Univers n 40 mg 4-27 tablet by ity of tablet 00:00: mouth in [place] the Medical morning. Branch atorvastati 0 Yes [id number] 40mg Take 1 Univers n 40 mg 4-27 tablet by ity of tablet 00:00: mouth in [place] the Medical morning. Branch atorvastati 0 Yes [id number] 40mg Take 1 Univers n 40 mg 4-27 tablet by ity of tablet 00:00: mouth in [place] the Medical morning. Branch atorvastati 0 Yes [id number] 40mg Take 1 Univers n 40 mg 4-27 tablet by ity of tablet 00:00: mouth in [place] the Medical morning. Branch atorvastati 2022-0 Yes [id number] 40mg Take 1 Univers n 40 mg 4-27 tablet by ity of tablet 00:00: mouth in [place] the Medical morning. Branch atorvastati 2022-0 Yes [id number] 40mg Take 1 Univers n 40 mg 4-27 tablet by ity of tablet 00:00: mouth in [place] the Medical morning. Branch atorvastati 2022-0 Yes [id number] 40mg Take 1 Univers n 40 mg 4-27 tablet by ity of tablet 00:00: mouth in [place] the Medical morning. Branch atorvastati 2022-0 Yes [id number] 40mg Take 1 Univers n 40 mg 4-27 tablet by ity of tablet 00:00: mouth in [place] 00 the Medical morning. Branch atorvastati 2022-0 Yes [id number] 40mg Take 1 Univers n 40 mg 4-27 tablet by ity of tablet 00:00: mouth in [place] 00 the Medical morning. Branch atorvastati 2022-0 Yes [id number] 40mg Take 1 Univers n 40 mg 4-27 tablet by ity of tablet 00:00: mouth in [place] 00 the Medical morning. Branch atorvastati 2022-0 Yes [id number] 40mg Take 1 Univers n 40 mg 4-27 tablet by ity of tablet 00:00: mouth in [place] the Medical morning. Branch atorvastati 2022-0 Yes [id number] 40mg Take 1 Univers n 40 mg 4-27 tablet by ity of tablet 00:00: mouth in [place] the Medical morning. Branch atorvastati 2022-0 Yes [id number] 40mg Take 1 Univers n 40 mg 4-27 tablet by ity of tablet 00:00: mouth in [place] the Medical morning. Branch atorvastati 2022-0 Yes [id number] 40mg Take 1 Univers n 40 mg 4-27 tablet by ity of tablet 00:00: mouth in [place] the Medical morning. Branch atorvastati 2022-0 Yes [id number] 40mg Take 1 Univers n 40 mg 4-27 tablet by ity of tablet 00:00: mouth in [place] the Medical morning. Branch atorvastati 2022-0 Yes [id number] 40mg Take 1 Univers n 40 mg 4-27 tablet by ity of tablet 00:00: mouth in [place] the Medical morning. Branch atorvastati 3-0 Yes [id number] 40mg Take 1 Univers n 40 mg 4-27 tablet by ity of tablet 00:00: mouth in [place] 00 the Medical morning. Branch atorvastati 3-0 Yes [id number] 40mg Take 1 Univers n 40 mg 4-27 tablet by ity of tablet 00:00: mouth in [place] 00 the Medical morning. Branch atorvastati 3-0 Yes [id number] 40mg Take 1 Univers n 40 mg 4-27 tablet by ity of tablet 00:00: mouth in [place] 00 the Medical morning. Branch atorvastati 2023-0 Yes [id number] 40mg Take 1 Univers n 40 mg 4-27 tablet by ity of tablet 00:00: mouth in [place] the Medical morning. Branch atorvastati 2022-0 Yes [id number] 40mg Take 1 Univers n 40 mg 4-27 tablet by ity of tablet 00:00: mouth in [place] the Medical morning. Branch atorvastati 2022-0 Yes [id number] 40mg Take 1 Univers n 40 mg 4-27 tablet by ity of tablet 00:00: mouth in [place] the Medical morning. Branch atorvastati 0 Yes [id number] 40mg Take 1 Univers n 40 mg 4-27 tablet by ity of tablet 00:00: mouth in [place] the Medical morning. Branch atorvastati 0 Yes [id number] 40mg Take 1 Univers n 40 mg 4-27 tablet by ity of tablet 00:00: mouth in [place] the Medical morning. Branch atorvastati 0 Yes [id number] 40mg Take 1 Univers n 40 mg 4-27 tablet by ity of tablet 00:00: mouth in [place] the Medical morning. Branch atorvastati 0 Yes [id number] 40mg Take 1 Univers n 40 mg 4-27 tablet by ity of tablet 00:00: mouth in [place] the Medical morning. Branch atorvastati Yes [id number] 40mg Take 1 Univers n 40 mg 4-27 tablet by ity of tablet 00:00: mouth in [place] the Medical morning. Branch insulin Yes 26U 26 Units, Unive rs glargine 2- Subcutaneo ity o f (LANTUS 23:56: us, Q24H, [place] U-100) 00 First dose Medical injection (after Branch 26 Units last modificati on) on Sat10/05/22 at 1756, Until Discontinu ed, Routine Sliding Yes Subcutaneo Univ ers Scale 2-03 us, Q4H, ity of Insulin - 18:00: First dose [place] lispro 00 (after Medical (humaLOG) + last Branch Fsbg modificati Testing on) on Sat10/05/22 at 1200, Until Discontinu ed, Routine insulin 2023-0 Yes 8U 8 Units, Univer s lispro 2-03 Subcutaneo ity of (human) 18:00: , TINolan [place] (HumaLOG 00 MEALS, Medical U-100) First dose Branch injection 8 (after Units last modificati on) on Sat10/05/22 at 1200, Until Discontinu ed, Routine Blood-Gluco 2022-0 Yes [id number] Use as Univers se Meter 2-03 directed ity of (RELION 00:00: [place] PRIME 00 Medical METER) Misc Branch blood sugar 0 Yes [id number] Use as Univers diagnostic 2-03 directed ity o f (RELION 00:00: [place] PRIME TEST 00 Medical STRIPS) Branch strip Insulin 0 Yes [id number] Use as Univ ers [place], 2-03 directed [facility] of Disposable, 00:00: [place] 31 gauge x 00 Medical 5/16" [facility] lancets 30 2022-0 Yes [id number] Use as [facility] gauge Misc 2-03 directed ity o f 00:00: [place] 00 [facility] Blood-Gluco 2022-0 Yes [id number] Use as [facility] se Meter 2-03 directed ity of (RELION 00:00: [place] PRIME 00 Medical METER) Misc Branch blood sugar 2022-0 Yes [id number] Use as [facility] diagnostic 2-03 directed ity o f (RELION 00:00: [place] PRIME TEST 00 Medical STRIPS) Branch strip Insulin 2022-0 Yes [id number] Use as [facility] [place], 2-03 directed ity of Disposable, 00:00: [place] 31 gauge x 00 Medical 5/16" [facility] lancets 30 2022-0 Yes [id number] Use as [facility] gauge Misc 2-03 directed ity o f 00:00: [place] 00 [facility] Blood-Gluco 2022-0 Yes [id number] Use as [facility] se Meter 2-03 directed ity of (RELION 00:00: [place] PRIME 00 Medical METER) Misc Branch blood sugar 2022-0 Yes [id number] Use as [facility] diagnostic 2-03 directed ity o f (RELION 00:00: [place] PRIME TEST 00 Medical STRIPS) Branch strip Insulin 2022-0 Yes [id number] Use as [facility] [place], 2-03 directed ity of Disposable, 00:00: [place] 31 gauge x 00 Medical 5/16" [facility] lancets 30 2023-0 Yes [id number] Use as [facility] gauge Misc 2-03 directed ity o f 00:00: [place] 00 [facility] Blood-Gluco 2022-0 Yes [id number] Use as [facility] se Meter 2-03 directed ity of (RELION 00:00: [place] PRIME 00 Medical METER) Misc Branch blood sugar 2022-0 Yes [id number] Use as [facility] diagnostic 2-03 directed ity o f (RELION 00:00: [place] PRIME TEST 00 Medical STRIPS) Branch strip Insulin 0 Yes [id number] Use as [facility] [place], 2-03 directed ity of Disposable, 00:00: [place] 31 gauge x 00 Medical 5/16" [facility] lancets 30 0 Yes [id number] Use as [facility] gauge Misc 2-03 directed ity o f 00:00: [place] 00 [facility] Blood-Gluco 0 Yes [id number] Use as [facility] se Meter 2-03 directed ity of (RELION 00:00: [place] PRIME 00 Medical METER) Misc Branch blood sugar Yes [id number] Use as [facility] diagnostic 2-03 directed ity o f (RELION 00:00: [place] PRIME TEST 00 Medical STRIPS) Branch strip Insulin 0 Yes [id number] Use as [facility] [place], 2-03 directed ity of Disposable, 00:00: [place] 31 gauge x 00 Medical 5/16" [facility] lancets 30 2022-0 Yes [id number] Use as [facility] gauge Misc 2-03 directed ity o f 00:00: [place] 00 [facility] Blood-Gluco 2022-0 Yes [id number] Use as [facility] se Meter 2-03 directed ity of (RELION 00:00: [place] PRIME 00 Medical METER) Misc Branch blood sugar 0 Yes [id number] Use as [facility] diagnostic 2-03 directed ity o f (RELION 00:00: [place] PRIME TEST 00 Medical STRIPS) Branch strip Insulin 2022-0 Yes [id number] Use as [facility] [place], 2-03 directed ity of Disposable, 00:00: [place] 31 gauge x 00 Medical 5/16" [facility] lancets 30 2022-0 Yes [id number] Use as [facility] gauge Misc 2-03 directed ity o f 00:00: [place] 00 [facility] Blood-Gluco 2023-0 Yes [id number] Use as [facility] se Meter 2-03 directed ity of (RELION 00:00: [place] PRIME 00 Medical METER) Misc Branch blood sugar 2022-0 Yes [id number] Use as [facility] diagnostic 2-03 directed ity o f (RELION 00:00: [place] PRIME TEST 00 Medical STRIPS) Branch strip Insulin 2022-0 Yes [id number] Use as [facility] [place], 2-03 directed ity of Disposable, 00:00: [place] 31 gauge x 00 Medical 5/16" [facility] lancets 30 2022-0 Yes [id number] Use as [facility] gauge Misc 2-03 directed ity o f 00:00: [place] 00 [facility] Blood-Gluco 2022-0 Yes [id number] Use as [facility] se Meter 2-03 directed ity of (RELION 00:00: [place] PRIME 00 Medical METER) Misc Branch blood sugar 2022-0 Yes [id number] Use as [facility] diagnostic 2-03 directed ity o f (RELION 00:00: [place] PRIME TEST 00 Medical STRIPS) Branch strip Insulin 2022-0 Yes [id number] Use as [facility] [place], 2-03 directed ity of Disposable, 00:00: [place] 31 gauge x 00 Medical 5/16" [facility] lancets 30 2022-0 Yes [id number] Use as [facility] gauge Misc 2-03 directed ity o f 00:00: [place] 00 [facility] Blood-Gluco 2022-0 Yes [id number] Use as [facility] se Meter 2-03 directed ity of (RELION 00:00: [place] PRIME 00 Medical METER) Misc Branch blood sugar 2022-0 Yes [id number] Use as [facility] diagnostic 2-03 directed ity o f (RELION 00:00: [place] PRIME TEST 00 Medical STRIPS) Branch strip Insulin 2022-0 Yes [id number] Use as [facility] [place], 2-03 directed ity of Disposable, 00:00: [place] 31 gauge x 00 Medical 5/16" [facility] lancets 30 2022-0 Yes [id number] Use as [facility] gauge Misc 2-03 directed ity o f 00:00: [place] 00 [facility] Blood-Gluco 2022-0 Yes [id number] Use as [facility] se Meter 2-03 directed ity of (RELION 00:00: [place] PRIME 00 Medical METER) Misc Branch blood sugar 2022-0 Yes [id number] Use as [facility] diagnostic 2-03 directed ity o f (RELION 00:00: [place] PRIME TEST 00 Medical STRIPS) Branch strip Insulin 2022-0 Yes [id number] Use as [facility] [place], 2-03 directed ity of Disposable, 00:00: [place] 31 gauge x 00 Medical 5/16" [facility] lancets 30 2022-0 Yes [id number] Use as [facility] n[facility] gauge Misc 2-03 directed ity o f 00:00: [place] 00 [facility] Blood-Gluco 2022-0 Yes [id number] Use as [facility] se Meter 2-03 directed ity of (RELION 00:00: [place] PRIME 00 Medical METER) Misc Branch blood sugar 0 Yes [id number] Use as [facility] diagnostic 2-03 directed ity o f (RELION 00:00: [place] PRIME TEST 00 Medical STRIPS) Branch strip Insulin 2022-0 Yes [id number] Use as [facility] [place], 2-03 directed ity of Disposable, 00:00: [place] 31 gauge x 00 Medical 5/16" [facility] lancets 30 2022-0 Yes [id number] Use as [facility] gauge Misc 2-03 directed ity o f 00:00: [place] 00 [facility] Blood-Gluco 2022-0 Yes [id number] Use as [facility] se Meter 2-03 directed ity of (RELION 00:00: [place] PRIME 00 Medical METER) Misc Branch blood sugar 2022-0 Yes [id number] Use as [facility] diagnostic 2-03 directed ity o f (RELION 00:00: [place] PRIME TEST 00 Medical STRIPS) Branch strip Insulin 2022-0 Yes [id number] Use as [facility] [place], 2-03 directed ity of Disposable, 00:00: [place] 31 gauge x 00 Medical 5/16" [facility] lancets 30 2022-0 Yes [id number] Use as [facility] gauge Misc 2-03 directed ity o f 00:00: [place] 00 [facility] Blood-Gluco 2022-0 Yes [id number] Use as [facility] se Meter 2-03 directed ity of (RELION 00:00: [place] PRIME 00 Medical METER) Misc Branch blood sugar 2022-0 Yes [id number] Use as [facility] diagnostic 2-03 directed ity o f (RELION 00:00: [place] PRIME TEST 00 Medical STRIPS) Branch strip Insulin 2022-0 Yes [id number] Use as [facility] [place], 2-03 directed ity of Disposable, 00:00: [place] 31 gauge x 00 Medical 5/16" [facility] lancets 30 2022-0 Yes [id number] Use as [facility] gauge Misc 2-03 directed ity o f 00:00: [place] 00 [facility] Blood-Gluco 2022-0 Yes [id number] Use as [facility] se Meter 2-03 directed ity of (RELION 00:00: [place] PRIME 00 Medical METER) Misc Branch blood sugar 2022-0 Yes [id number] Use as [facility] diagnostic 2-03 directed ity o f (RELION 00:00: [place] PRIME TEST 00 Medical STRIPS) Branch strip Insulin 2022-0 Yes [id number] Use as [facility] [place], 2-03 directed ity of Disposable, 00:00: [place] 31 gauge x 00 Medical 5/16" [facility] lancets 30 0 Yes [id number] Use as [facility] n[facility] gauge Misc 2-03 directed ity o f 00:00: [place] 00 [facility] Blood-Gluco 2022-0 Yes [id number] Use as [facility] se Meter 2-03 directed ity of (RELION 00:00: [place] PRIME 00 Medical METER) Misc Branch blood sugar 0 Yes [id number] Use as [facility] diagnostic 2-03 directed ity o f (RELION 00:00: [place] PRIME TEST 00 Medical STRIPS) Branch strip Insulin 2022-0 Yes [id number] Use as [facility] [place], 2-03 directed ity of Disposable, 00:00: [place] 31 gauge x 00 Medical 5/16" [facility] lancets 30 2022-0 Yes [id number] Use as [facility] gauge Misc 2-03 directed ity o f 00:00: [place] 00 [facility] Blood-Gluco 2022-0 Yes [id number] Use as [facility] se Meter 2-03 directed ity of (RELION 00:00: [place] PRIME 00 Medical METER) Misc Branch blood sugar 2022-0 Yes [id number] Use as [facility] diagnostic 2-03 directed ity o f (RELION 00:00: [place] PRIME TEST 00 Medical STRIPS) Branch strip Insulin 2022-0 Yes [id number] Use as [facility] [place], 2-03 directed ity of Disposable, 00:00: [place] 31 gauge x 00 Medical 5/16" [facility] lancets 30 2022-0 Yes [id number] Use as [facility] gauge Misc 2-03 directed ity o f 00:00: [place] 00 [facility] Blood-Gluco 2022-0 Yes [id number] Use as [facility] se Meter 2-03 directed ity of (RELION 00:00: [place] PRIME 00 Medical METER) Misc Branch blood sugar 2022-0 Yes [id number] Use as [facility] diagnostic 2-03 directed ity o f (RELION 00:00: [place] PRIME TEST 00 Medical STRIPS) Branch strip Insulin 2022-0 Yes [id number] Use as [facility] [place], 2-03 directed ity of Disposable, 00:00: [place] 31 gauge x 00 Medical 5/16" [facility] lancets 30 2022-0 Yes [id number] Use as [facility] gauge Misc 2-03 directed ity o f 00:00: [place] 00 [facility] Blood-Gluco 0 Yes [id number] Use as [facility] se Meter 2-03 directed ity of (RELION 00:00: [place] PRIME 00 Medical METER) Misc Branch blood sugar 0 Yes [id number] Use as [facility] diagnostic 2-03 directed ity o f (RELION 00:00: [place] PRIME TEST 00 Medical STRIPS) Branch strip Insulin 0 Yes [id number] Use as [facility] [place], 2-03 directed ity of Disposable, 00:00: [place] 31 gauge x 00 Medical 5/16" [facility] lancets 30 2022-0 Yes [id number] Use as [facility] n[facility] gauge Misc 2-03 directed ity o f 00:00: [place] 00 [facility] Blood-Gluco 2022-0 Yes [id number] Use as [facility] se Meter 2-03 directed ity of (RELION 00:00: [place] PRIME 00 Medical METER) Misc Branch blood sugar 2022-0 Yes [id number] Use as [facility] diagnostic 2-03 directed ity o f (RELION 00:00: [place] PRIME TEST 00 Medical STRIPS) Branch strip Insulin 2022-0 Yes [id number] Use as [facility] [place], 2-03 directed ity of Disposable, 00:00: [place] 31 gauge x 00 Medical 5/16" [facility] lancets 30 2022-0 Yes [id number] Use as [facility] n[facility] gauge Misc 2-03 directed ity o f 00:00: [place] 00 [facility] Blood-Gluco 2023-0 Yes [id number] Use as [facility] se Meter 2-03 directed ity of (RELION 00:00: [place] PRIME 00 Medical METER) Misc Branch blood sugar 2022-0 Yes [id number] Use as [facility] diagnostic 2-03 directed ity o f (RELION 00:00: [place] PRIME TEST 00 Medical STRIPS) Branch strip Insulin 2022-0 Yes [id number] Use as [facility] [place], 2-03 directed ity of Disposable, 00:00: [place] 31 gauge x 00 Medical 5/16" [facility] lancets 30 2022-0 Yes [id number] Use as [facility] n[facility] gauge Misc 2-03 directed ity o f 00:00: [place] 00 [facility] Blood-Gluco 2022-0 Yes [id number] Use as [facility] se Meter 2-03 directed ity of (RELION 00:00: [place] PRIME 00 Medical METER) Misc Branch blood sugar 0 Yes [id number] Use as [facility] diagnostic 2-03 directed ity o f (RELION 00:00: [place] PRIME TEST 00 Medical STRIPS) Branch strip Insulin 2022-0 Yes [id number] Use as [facility] [place], 2-03 directed ity of Disposable, 00:00: [place] 31 gauge x 00 Medical 5/16" [facility] lancets 30 2022-0 Yes [id number] Use as [facility] n[facility] gauge Misc 2-03 directed ity o f 00:00: [place] 00 [facility] Blood-Gluco 2022-0 Yes [id number] Use as [facility] se Meter 2-03 directed ity of (RELION 00:00: [place] PRIME 00 Medical METER) Misc Branch blood sugar 2022-0 Yes [id number] Use as [facility] diagnostic 2-03 directed ity o f (RELION 00:00: [place] PRIME TEST 00 Medical STRIPS) Branch strip Insulin 2022-0 Yes [id number] Use as [facility] [place], 2-03 directed ity of Disposable, 00:00: [place] 31 gauge x 00 Medical 5/16" [facility] lancets 30 2022-0 Yes [id number] Use as [facility] nivers gauge Misc 2-03 directed ity o f 00:00: [place] 00 [facility] Blood-Gluco 2022-0 Yes [id number] Use as [facility] se Meter 2-03 directed ity of (RELION 00:00: [place] PRIME 00 Medical METER) Misc Branch blood sugar 2023-0 Yes [id number] Use as [facility] diagnostic 2-03 directed ity o f (RELION 00:00: [place] PRIME TEST 00 Medical STRIPS) Branch strip Insulin 2022-0 Yes [id number] Use as [facility] [place], 2-03 directed ity of Disposable, 00:00: [place] 31 gauge x 00 Medical 5/16" [facility] lancets 30 2022-0 Yes [id number] Use as [facility] nivers gauge Misc 2-03 directed ity o f 00:00: [place] 00 [facility] Blood-Gluco 2022-0 Yes [id number] Use as [facility] se Meter 2-03 directed ity of (RELION 00:00: [place] PRIME 00 Medical METER) Misc Branch blood sugar 0 Yes [id number] Use as [facility] diagnostic 2-03 directed ity o f (RELION 00:00: [place] PRIME TEST 00 Medical STRIPS) Branch strip Insulin 2022-0 Yes [id number] Use as [facility] [place], 2-03 directed ity of Disposable, 00:00: [place] 31 gauge x 00 Medical 5/16" [facility] lancets 30 2022-0 Yes [id number] Use as U nivers gauge Misc 2-03 directed ity o f 00:00: [place] 00 [facility] Blood-Gluco 2022-0 Yes [id number] Use as [facility] se Meter 2-03 directed ity of (RELION 00:00: [place] PRIME 00 Medical METER) Misc Branch blood sugar 2022-0 Yes [id number] Use as [facility] diagnostic 2-03 directed ity o f (RELION 00:00: [place] PRIME TEST 00 Medical STRIPS) Branch strip Insulin 2022-0 Yes [id number] Use as [facility] [place], 2-03 directed ity of Disposable, 00:00: [place] 31 gauge x 00 Medical 5/16" [facility] lancets 30 2022-0 Yes [id number] Use as [facility] n[facility] gauge Misc 2-03 directed ity o f 00:00: [place] 00 [facility] Blood-Gluco 2022-0 Yes [id number] Use as [facility] se Meter 2-03 directed ity of (RELION 00:00: [place] PRIME 00 Medical METER) Misc Branch blood sugar 2022-0 Yes [id number] Use as [facility] diagnostic 2-03 directed ity o f (RELION 00:00: [place] PRIME TEST 00 Medical STRIPS) Branch strip Insulin 2022-0 Yes [id number] Use as [facility] [place], 2-03 directed ity of Disposable, 00:00: [place] 31 gauge x 00 Medical 5/16" [facility] lancets 30 2022-0 Yes [id number] Use as [facility] n[facility] gauge Misc 2-03 directed ity o f 00:00: [place] 00 [facility] Blood-Gluco 2022-0 Yes [id number] Use as [facility] se Meter 2-03 directed ity of (RELION 00:00: [place] PRIME 00 Medical METER) Misc Branch blood sugar 2022-0 Yes [id number] Use as [facility] diagnostic 2-03 directed ity o f (RELION 00:00: [place] PRIME TEST 00 Medical STRIPS) Branch strip Insulin 2022-0 Yes [id number] Use as [facility] [place], 2-03 directed ity of Disposable, 00:00: [place] 31 gauge x 00 Medical 5/16" [facility] lancets 30 2022-0 Yes [id number] Use as [facility] n[facility] gauge Misc 2-03 directed ity o f 00:00: [place] 00 [facility] Blood-Gluco 2022-0 Yes [id number] Use as [facility] se Meter 2-03 directed ity of (RELION 00:00: [place] PRIME 00 Medical METER) Misc Branch blood sugar 2022-0 Yes [id number] Use as [facility] diagnostic 2-03 directed ity o f (RELION 00:00: [place] PRIME TEST 00 Medical STRIPS) Branch strip Insulin 2022-0 Yes [id number] Use as [facility] [place], 2-03 directed ity of Disposable, 00:00: [place] 31 gauge x 00 Medical 5/16" [facility] lancets 30 2022-0 Yes [id number] Use as U nivers gauge Misc 2-03 directed ity o f 00:00: [place] 00 [facility] Blood-Gluco 2022-0 Yes [id number] Use as [facility] se Meter 2-03 directed ity of (RELION 00:00: [place] PRIME 00 Medical METER) Misc Branch blood sugar 2022-0 Yes [id number] Use as [facility] diagnostic 2-03 directed ity o f (RELION 00:00: [place] PRIME TEST 00 Medical STRIPS) Branch strip Insulin 2022-0 Yes [id number] Use as [facility] [place], 2-03 directed ity of Disposable, 00:00: [place] 31 gauge x 00 Medical 5/16" [facility] lancets 30 2022-0 Yes [id number] Use as U nivers gauge Misc 2-03 directed ity o f 00:00: [place] 00 [facility] Blood-Gluco 2022-0 Yes [id number] Use as [facility] se Meter 2-03 directed ity of (RELION 00:00: [place] PRIME 00 Medical METER) Misc Branch blood sugar 2022-0 Yes [id number] Use as [facility] diagnostic 2-03 directed ity o f (RELION 00:00: [place] PRIME TEST 00 Medical STRIPS) Branch strip Insulin 2022-0 Yes [id number] Use as [facility] [place], 2-03 directed ity of Disposable, 00:00: [place] 31 gauge x 00 Medical 516" [facility] lancets 30 2022-0 Yes [id number] Use as [facility] nivers gauge Misc 2-03 directed ity o f 00:00: [place] 00 [facility] Blood-Gluco 2022-0 Yes [id number] Use as [facility] se Meter 2-03 directed ity of (RELION 00:00: [place] PRIME 00 Medical METER) Misc Branch blood sugar 2022-0 Yes [id number] Use as [facility] diagnostic 2-03 directed ity o f (RELION 00:00: [place] PRIME TEST 00 Medical STRIPS) Branch strip Insulin 2022-0 Yes [id number] Use as [facility] [place], 2-03 directed ity of Disposable, 00:00: [place] 31 gauge x 00 Medical 5/16" [facility] lancets 30 2022-0 Yes [id number] Use as [facility] n[facility] gauge Misc 2-03 directed ity o f 00:00: [place] 00 [facility] Blood-Gluco 2022-0 Yes [id number] Use as [facility] se Meter 2-03 directed ity of (RELION 00:00: [place] PRIME 00 Medical METER) Misc Branch blood sugar 2022-0 Yes [id number] Use as [facility] diagnostic 2-03 directed ity o f (RELION 00:00: [place] PRIME TEST 00 Medical STRIPS) Branch strip Insulin 2022-0 Yes [id number] Use as [facility] [place], 2-03 directed ity of Disposable, 00:00: [place] 31 gauge x 00 Medical 5/16" [facility] lancets 30 2022-0 Yes [id number] Use as [facility] nivers gauge Misc 2-03 directed ity o f 00:00: [place] 00 [facility] Blood-Gluco 2022-0 Yes [id number] Use as [facility] se Meter 2-03 directed ity of (RELION 00:00: [place] PRIME 00 Medical METER) Misc Branch blood sugar 2022-0 Yes [id number] Use as [facility] diagnostic 2-03 directed ity o f (RELION 00:00: [place] PRIME TEST 00 Medical STRIPS) Branch strip Insulin 2022-0 Yes [id number] Use as [facility] [place], 2-03 directed ity of Disposable, 00:00: [place] 31 gauge x 00 Medical 5/16" [facility] lancets 30 2022-0 Yes [id number] Use as [facility] nivers gauge Misc 2-03 directed ity o f 00:00: [place] 00 [facility] Blood-Gluco 2022-0 Yes [id number] Use as [facility] se Meter 2-03 directed ity of (RELION 00:00: [place] PRIME 00 Medical METER) Misc Branch blood sugar 0 Yes [id number] Use as [facility] diagnostic 2-03 directed ity o f (RELION 00:00: [place] PRIME TEST 00 Medical STRIPS) Branch strip Insulin 2022-0 Yes [id number] Use as [facility] [place], 2-03 directed ity of Disposable, 00:00: [place] 31 gauge x 00 Medical 5/16" [facility] lancets 30 2022-0 Yes [id number] Use as U nivers gauge Misc 2-03 directed ity o f 00:00: [place] 00 [facility] Blood-Gluco 2022-0 Yes [id number] Use as [facility] se Meter 2-03 directed ity of (RELION 00:00: [place] PRIME 00 Medical METER) Misc Branch blood sugar 2022-0 Yes [id number] Use as [facility] diagnostic 2-03 directed ity o f (RELION 00:00: [place] PRIME TEST 00 Medical STRIPS) Branch strip Insulin 2022-0 Yes [id number] Use as [facility] [place], 2-03 directed ity of Disposable, 00:00: [place] 31 gauge x 00 Medical 5/16" [facility] lancets 30 2022-0 Yes [id number] Use as U nivers gauge Misc 2-03 directed ity o f 00:00: [place] 00 [facility] Blood-Gluco 2022-0 Yes [id number] Use as [facility] se Meter 2-03 directed ity of (RELION 00:00: [place] PRIME 00 Medical METER) Misc Branch blood sugar 0 Yes [id number] Use as [facility] diagnostic 2-03 directed ity o f (RELION 00:00: [place] PRIME TEST 00 Medical STRIPS) Branch strip Insulin 2022-0 Yes [id number] Use as [facility] [place], 2-03 directed ity of Disposable, 00:00: [place] 31 gauge x 00 Medical 5/16" [facility] lancets 30 2022-0 Yes [id number] Use as U nivers gauge Misc 2-03 directed ity o f 00:00: [place] 00 [facility] Blood-Gluco 2022-0 Yes [id number] Use as [facility] se Meter 2-03 directed ity of (RELION 00:00: [place] PRIME 00 Medical METER) Misc Branch blood sugar 0 Yes [id number] Use as [facility] diagnostic 2-03 directed ity o f (RELION 00:00: [place] PRIME TEST 00 Medical STRIPS) Branch strip Insulin 2022-0 Yes [id number] Use as [facility] [place], 2-03 directed ity of Disposable, 00:00: [place] 31 gauge x 00 Medical 5/16" [facility] lancets 30 2022-0 Yes [id number] Use as U nivers gauge Misc 2-03 directed ity o f 00:00: [place] 00 [facility] Blood-Gluco 2022-0 Yes [id number] Use as [facility] se Meter 2-03 directed ity of (RELION 00:00: [place] PRIME 00 Medical METER) Misc Branch blood sugar 2022-0 Yes [id number] Use as [facility] diagnostic 2-03 directed ity o f (RELION 00:00: [place] PRIME TEST 00 Medical STRIPS) Branch strip Insulin 2022-0 Yes [id number] Use as [facility] [place], 2-03 directed ity of Disposable, 00:00: [place] 31 gauge x 00 Medical 5/16" [facility] lancets 30 2022-0 Yes [id number] Use as U nivers gauge Misc 2-03 directed ity o f 00:00: [place] 00 [facility] Blood-Gluco 2022-0 Yes [id number] Use as [facility] se Meter 2-03 directed ity of (RELION 00:00: [place] PRIME 00 Medical METER) Misc Branch blood sugar 2022-0 Yes [id number] Use as [facility] diagnostic 2-03 directed ity o f (RELION 00:00: [place] PRIME TEST 00 Medical STRIPS) Branch strip Insulin 0 Yes [id number] Use as [facility] [place], 2-03 directed ity of Disposable, 00:00: [place] 31 gauge x 00 Medical 5/16" [facility] lancets 30 0 Yes [id number] Use as U nivers gauge Misc 2-03 directed ity o f 00:00: [place] 00 [facility] Blood-Gluco 0 Yes [id number] Use as [facility] se Meter 2-03 directed ity of (RELION 00:00: [place] PRIME 00 Medical METER) Misc Branch blood sugar 0 Yes [id number] Use as [facility] diagnostic 2-03 directed ity o f (RELION 00:00: [place] PRIME TEST 00 Medical STRIPS) Branch strip Insulin 0 Yes [id number] Use as [facility] [place], 2-03 directed ity of Disposable, 00:00: [place] 31 gauge x 00 Medical 5/16" [facility] lancets 30 0 Yes [id number] Use as U nivers gauge Misc 2-03 directed ity o f 00:00: [place] 00 [facility] Blood-Gluco 0 Yes [id number] Use as [facility] se Meter 2-03 directed ity of (RELION 00:00: [place] PRIME 00 Medical METER) Misc Branch blood sugar 0 Yes [id number] Use as [facility] diagnostic 2-03 directed ity o f (RELION 00:00: [place] PRIME TEST 00 Medical STRIPS) Branch strip Insulin 0 Yes [id number] Use as [facility] [place], 2-03 directed ity of Disposable, 00:00: [place] 31 gauge x 00 Medical 5/16" [facility] lancets 30 0 Yes [id number] Use as U nivers gauge Misc 2-03 directed ity o f 00:00: [place] 00 [facility] Branch dapaglifloz 2022-0 2022- No [id number] 10mg Take 1 [facility] in 2-03 05-05 tablet by ity of (NYASIA) 00:00: 04:59 mouth in [place] as 10 mg 00 :00 the Medical tablet morning Branch for 90 days. insulin NPH 0 2022- No [id number] 22U inject 22 [facility] 100 unit/mL 2-03 05-05 Units ity of injection 00:00: 04:59 under the [place] 00 :00 skin every Medical morning Branch for 90 days. insulin NPH 2022-2022- No [id number] 18U inject 18 [facility] 100 unit/mL 2-03 05-05 Units ity of injection 00:00: 04:59 under the [place] 00 :00 skin every Medical evening Branch for 90 days. dapaglifloz 2022-2022- No [id number] 10mg Take 1 [facility] in 2-03 05-05 tablet by ity of (XIGA) 00:00: 04:59 mouth in [place] 10 mg 00 :00 the Medical tablet morning Branch for 90 days. insulin NPH 2022- No [id number] 22U inject 22 [facility] 100 unit/mL 2-03 05-05 Units ity of injection 00:00: 04:59 under the [place] 00 :00 skin every Medical morning Branch for 90 days. insulin NPH 2022- No [id number] 18U inject 18 [facility] 100 unit/mL 2-03 05-05 Units ity of injection 00:00: 04:59 under the [place] 00 :00 skin every Medical evening Branch for 90 days. dapaglifloz 2022-2022- No [id number] 10mg Take 1 [facility] in 2-03 05-05 tablet by ity of (XIGA) 00:00: 04:59 mouth in [place] 10 mg 00 :00 the Medical tablet morning Branch for 90 days. insulin NPH 2022-2022- No [id number] 22U inject 22 [facility] 100 unit/mL 2-03 05-05 Units ity of injection 00:00: 04:59 under the [place] 00 :00 skin every Medical morning Branch for 90 days. insulin NPH 2022-2022- No [id number] 18U inject 18 [facility] 100 unit/mL 2-03 05-05 Units ity of injection 00:00: 04:59 under the [place] 00 :00 skin every Medical evening Branch for 90 days. dapaglifloz 2022-2022- No [id number] 10mg Take 1 [facility] in 2-03 05-05 tablet by ity of (FARXIGA) 00:00: 04:59 mouth in [place] 10 mg 00 :00 the Medical tablet morning Branch for 90 days. insulin NPH 2022-2022- No [id number] 22U inject 22 [facility] 100 unit/mL 2-03 05-05 Units ity of injection 00:00: 04:59 under the [place] 00 :00 skin every Medical morning Branch for 90 days. insulin NPH 2022-0 2022- No [id number] 18U inject 18 [facility] 100 unit/mL 2-03 05-05 Units ity of injection 00:00: 04:59 under the [place] 00 :00 skin every Medical evening Branch for 90 days. dapaglifloz 2022-0 2022- No [id number] 10mg Take 1 [facility] in 2-03 05-05 tablet by ity of (XI) 00:00: 04:59 mouth in [place] 10 mg 00 :00 the Medical tablet morning Branch for 90 days. insulin NPH 2022-0 2022- No [id number] 22U inject 22 [facility] 100 unit/mL 2-03 05-05 Units ity of injection 00:00: 04:59 under the [place] 00 :00 skin every Medical morning Branch for 90 days. insulin NPH 2022-0 2022- No [id number] 18U inject 18 [facility] 100 unit/mL 2-03 05-05 Units ity of injection 00:00: 04:59 under the [place] 00 :00 skin every Medical evening Branch for 90 days. dapaglifloz 2022-0 2022- No [id number] 10mg Take 1 [facility] in 2-03 05-05 tablet by ity of () 00:00: 04:59 mouth in [place] 10 mg 00 :00 the Medical tablet morning Branch for 90 days. insulin NPH 2022-0 2022- No [id number] 22U inject 22 [facility] 100 unit/mL 2-03 05-05 Units ity of injection 00:00: 04:59 under the [place] 00 :00 skin every Medical morning Branch for 90 days. insulin NPH 2022-0 2022- No [id number] 18U inject 18 [facility] 100 unit/mL 2-03 05-05 Units ity of injection 00:00: 04:59 under the [place] 00 :00 skin every Medical evening Branch for 90 days. dapaglifloz 2022-0 2022- No [id number] 10mg Take 1 [facility] in 2-03 05-05 tablet by ity of () 00:00: 04:59 mouth in [place] 10 mg 00 :00 the Medical tablet morning Branch for 90 days. insulin NPH 2023-0 2022- No [id number] 22U inject 22 [facility] 100 unit/mL 2-03 05-05 Units ity of injection 00:00: 04:59 under the [place] 00 :00 skin every Medical morning Branch for 90 days. insulin NPH 2022-2022- No [id number] 18U inject 18 [facility] 100 unit/mL 2-03 05-05 Units ity of injection 00:00: 04:59 under the [place] 00 :00 skin every Medical evening Branch for 90 days. dapaglifloz 2022-2022- No [id number] 10mg Take 1 [facility] in 2- 05-05 tablet by ity of ([facility]) 00:00: 04:59 mouth in [place] 10 mg 00 :00 the Medical tablet morning Branch for 90 days. insulin NPH 2022-2022- No [id number] 22U inject 22 [facility] 100 unit/mL 2- 05-05 Units ity of injection 00:00: 04:59 under the [place] 00 :00 skin every Medical morning Branch for 90 days. insulin NPH 2022-2022- No [id number] 18U inject 18 [facility] 100 unit/mL 2- 05-05 Units ity of injection 00:00: 04:59 under the [place] 00 :00 skin every Medical evening Branch for 90 days. dapaglifloz 2022-0 2022- No [id number] 10mg Take 1 [facility] in 2- 05-05 tablet by ity of ([facility]) 00:00: 04:59 mouth in [place] 10 mg 00 :00 the Medical tablet morning Branch for 90 days. insulin NPH 2022-2022- No [id number] 22U inject 22 [facility] 100 unit/mL 2-03 05-05 Units ity of injection 00:00: 04:59 under the [place] 00 :00 skin every Medical morning Branch for 90 days. insulin NPH 2022-0 2022- No [id number] 18U inject 18 [facility] 100 unit/mL 2-03 05-05 Units ity of injection 00:00: 04:59 under the [place] 00 :00 skin every Medical evening Branch for 90 days. dapaglifloz 2022-0 2022- No [id number] 10mg Take 1 [facility] in 2-03 05-05 tablet by ity of ([facility]) 00:00: 04:59 mouth in [place] 10 mg 00 :00 the Medical tablet morning Branch for 90 days. insulin NPH 2022-0 2022- No [id number] 22U inject 22 [facility] 100 unit/mL 2-03 05-05 Units ity of injection 00:00: 04:59 under the [place] 00 :00 skin every Medical morning Branch for 90 days. insulin NPH 2022-2022- No [id number] 18U inject 18 [facility] 100 unit/mL 2-03 05-05 Units ity of injection 00:00: 04:59 under the [place] 00 :00 skin every Medical evening Branch for 90 days. dapaglifloz 2022-2022- No [id number] 10mg Take 1 Univers in 2-03 05-05 tablet by ity of ([facility]) 00:00: 04:59 mouth in [place] 10 mg 00 :00 the Medical tablet morning Branch for 90 days. insulin NPH 2022-2022- No [id number] 22U inject 22 [facility] 100 unit/mL 2-03 05-05 Units ity of injection 00:00: 04:59 under the [place] 00 :00 skin every Medical morning Branch for 90 days. insulin NPH 2022-2022- No [id number] 18U inject 18 [facility] 100 unit/mL 2-03 05-05 Units ity of injection 00:00: 04:59 under the [place] 00 :00 skin every Medical evening Branch for 90 days. dapaglifloz 2022- No [id number] 10mg Take 1 [facility] in 2-03 05-05 tablet by ity of ([facility]) 00:00: 04:59 mouth in [place] 10 mg 00 :00 the Medical tablet morning Branch for 90 days. insulin NPH 2022-0 2022- No [id number] 22U inject 22 [facility] 100 unit/mL 2-03 05-05 Units ity of injection 00:00: 04:59 under the [place] 00 :00 skin every Medical morning Branch for 90 days. insulin NPH 2022-0 2022- No [id number] 18U inject 18 [facility] 100 unit/mL 2-03 05-05 Units ity of injection 00:00: 04:59 under the [place] 00 :00 skin every Medical evening Branch for 90 days. dapaglifloz 2022-2022- No [id number] 10mg Take 1 [facility] in 2-03 05-05 tablet by ity of () 00:00: 04:59 mouth in [place] 10 mg 00 :00 the Medical tablet morning Branch for 90 days. insulin NPH 2022-2022- No [id number] 22U inject 22 [facility] 100 unit/mL 2-03 05-05 Units ity of injection 00:00: 04:59 under the [place] 00 :00 skin every Medical morning Branch for 90 days. insulin NPH 2022-0 2022- No [id number] 18U inject 18 [facility] 100 unit/mL 2-03 05-05 Units ity of injection 00:00: 04:59 under the [place] 00 :00 skin every Medical evening Branch for 90 days. dapaglifloz 2022-2022- No [id number] 10mg Take 1 [facility] in 2-03 05-05 tablet by ity of () 00:00: 04:59 mouth in [place] 10 mg 00 :00 the Medical tablet morning Branch for 90 days. insulin NPH 2022-0 2022- No [id number] 22U inject 22 [facility] 100 unit/mL 2-03 05-05 Units ity of injection 00:00: 04:59 under the [place] 00 :00 skin every Medical morning Branch for 90 days. insulin NPH 2022-0 2022- No [id number] 18U inject 18 [facility] 100 unit/mL 2-03 05-05 Units ity of injection 00:00: 04:59 under the [place] 00 :00 skin every Medical evening Branch for 90 days. dapaglifloz 2022-2022- No [id number] 10mg Take 1 [facility] in 2-03 05-05 tablet by ity of () 00:00: 04:59 mouth in [place] 10 mg 00 :00 the Medical tablet morning Branch for 90 days. insulin NPH 2022-0 2022- No [id number] 22U inject 22 [facility] 100 unit/mL 2-03 05-05 Units ity of injection 00:00: 04:59 under the [place] 00 :00 skin every Medical morning Branch for 90 days. insulin NPH 2022-0 2022- No [id number] 18U inject 18 [facility] 100 unit/mL 2-03 05-05 Units ity of injection 00:00: 04:59 under the [place] 00 :00 skin every Medical evening Branch for 90 days. dapaglifloz 2022- No [id number] 10mg Take 1 [facility] in 10-05-05 tablet by ity of ([facility]) 00:00: 04:59 mouth in [place] 10 mg 00 :00 the Medical tablet morning Branch for 90 days. insulin NPH 2022- No [id number] 22U inject 22 [facility] 100 unit/mL 10-05 05-05 Units ity of injection 00:00: 04:59 under the [place] 00 :00 skin every Medical morning Branch for 90 days. insulin NPH 2022- No [id number] 18U inject 18 [facility] 100 unit/mL 10-05 05-05 Units ity of injection 00:00: 04:59 under the [place] 00 :00 skin every Medical evening Branch for 90 days. insulin 2022- No 32U 32 Units, [facility] [place] [facility] ers glargine 10-04 Subcutaneo ity of (LANTUS 23:56: 14:57 [place], Q24H, [place] U-100[place] 00 :15 First dose Medical injection (after Branch 32 Units last modificati on) on [facility] 10/04/22 at 1756, Until Discontinu ed, Routine insulin 2022- No 10U 10 Units, Univ ers lispro 10-04 Subcutaneo ity of (human) 23:00: 14:57 us, TID [place] (HumaLOG 00 :15 MEALS, Medical U-100) First dose Branch injection (after 10 Units last modificati on) on [facility] 10/04/22 at 1700, Until Discontinu ed, Routine Sliding No Subcutaneo Uni vers Scale 10-0403 us, Q4H, ity of Insulin - 22:00: 16:39 First dose [place] lispro 00 :57 (after Medical (humaLOG) + last Branch Fsbg modificati Testing on) on [facility] 10/04/22 at 1600, Until Discontinu ed, Routine NaCl 0.9% 2022- No 1000mL at 100 Uni vers (NS) IV 2-02 02-02 mL/hr, IV ity of infusion 14:15: 22:00 Infusion, [place] 1,000 mL 00 :00 ONCE, 1 Medical dose, On Branch Shahnaz 10/04/22 at 0815, Routine insulin 2022- No .25U/kg 23 Units Un pedro glargine 10-04 /d (rounded ity of (LANTUS 00:29: 19:51 from 23.25 [place] U-100) 00 :36 Units = Medical injection 0.25 Branch 23 Units Units/kg/d ay ?93 kg), [facility] Q[facility], First dose on Sat10/03/22 at 1829, Until Discontinu ed, Routine insulin 2022- No [id number] 23U inject 23 [facility] glargine 10-0403 Units ity of 100 unit/mL 00:00: 00:00 under the [place] injection 00 :00 skin at Medical bedtime. [place] metoprolol Yes 25mg 25 mg, Unive rs succinate 10-03 Oral, ity of XL (TOPROL 15:00: DAILY, [place] XL) tablet 00 First dose Med ical 25 mg (after Branch last modificati on) on Sat10/03/22 at 0900, Until Discontinu ed, Routine atorvastati Yes 40mg 40 mg, Univ ers n (LIPITOR) 10-03 Oral, ity of tablet 40 15:00: DAILY, [place] mg 00 First dose Medical on Sat [place] 10/03/22 at 0900, Until Discontinu ed, Routine aspirin EC Yes 81mg 81 mg, Unive rs tablet 81 10-03 Oral, ity of mg 15:00: DAILY, [place] 00 First dose Medical on Sat10/03/22 at 0900, Until Discontinu ed, Routine insulin 2022- No .25U/kg 8 Units Uni vers lispro 10-03 /d (rounded ity of (human) 14:00: 19:52 [place] 7.75 [place] (HumaLOG 00 :16 Units = Medical U-100) 0.25 Branch injection 8 Units/kg/d Units ay ?93 kg), [facility], TID MEALS, First dose on Sat10/03/22 at 0800, Until Discontinu ed, Routine NaCl 0.9% 2022- No 500mL at 125 Univ ers (NS) bolus 10-03 02-01 mL/hr, 500 it y of infusion 11:00: 14:00 mL, IV [place] 500 mL 00 :00 Piggyback, Medical ONCE, 1 Branch dose, On Sat10/03/22 at 0500, Routine heparin 2022- Yes 5000U 5,000 Univers (porcine) 10-03 Units, ity of injection 02:00: Subcut[place]o [place] 5,000 Units 00 us, Q12H, Med ical First dose Branch on Sat10/02/22 at 2000, Until Discontinu ed, Routine Sliding 2022- No Subcutaneo Uni vers Scale 10-03 0202 us, Q4H, ity of Insulin - 02:00: 19:53 First dose [place] lispro 00 :01 on [facility] (humaLOG) + 10/02/22 at [facility] Fsbg 1999, Testing Until Discontinu ed, Routine glucagon Yes 1mg 1 mg, Univers (GLUCAGEN 10-03 Intramuscu ity of DIAGNOSTIC 00:13: [place], PRN, [place] KIT) 27 Starting Medical injection 1 on [facility] 10/02/22 at 1813, Until Discontinu ed, JOSE, Blood Glucose < or = 70 mg/dL and patient is NPO, unable to swallow or has mental changes. dextrose 50 Yes 25mL 25 mL, Univ ers % in water 10-03 Slow IV ity of (D50W) 00:13: Push, PRN, [place] injection 27 Starting Medica l 25 mL on [facility] 10/02/22 at 1813, Until Discontinu ed, JOSE, Blood Glucose < or = 70 mg/dL and patient is NPO, unable to swallow or has mental status changes. furosemide 2022- Yes Univers 40 mg 2-01 ity of tablet 00:00: [facility] furosemide 0 Yes Univers 40 mg 2-01 ity of tablet 00:00: [facility] furosemide 2022-0 Yes Univers 40 mg 2-01 ity of tablet 00:00: Medical Branch furosemide 2023-0 Yes Univers 40 mg 2-01 ity of tablet 00:00: [place] [address] Medical Branch furosemide 2023-0 Yes Univers 40 mg 2-01 ity of tablet 00:00: [place] 00 Medical Branch furosemide 2023-0 Yes Univers 40 mg 2-01 ity of tablet 00:00: [place] Medical Branch furosemide 2023-0 Yes Univers 40 mg 2-01 ity of tablet 00:00: [place] [address] Medical Branch furosemide 2023-0 Yes Univers 40 mg 2-01 ity of tablet 00:00: [place] [address] Medical Branch furosemide 2023-0 Yes Univers 40 mg 2-01 ity of tablet 00:00: [place] [address] Medical Branch furosemide 2023-0 Yes Univers 40 mg 2-01 ity of tablet 00:00: [place] [address] Medical Branch furosemide 2023-0 Yes Univers 40 mg 2-01 ity of tablet 00:00: [place] [address] Medical Branch furosemide 2023-0 Yes Univers 40 mg 2-01 ity of tablet 00:00: [place] [address] Medical Branch furosemide 2023-0 Yes Univers 40 mg 2-01 ity of tablet 00:00: [place] [address] Medical Branch furosemide 2023-0 Yes Univers 40 mg 2-01 ity of tablet 00:00: [place] [address] Medical Branch furosemide 2023-0 Yes Univers 40 mg 2-01 ity of tablet 00:00: [place] [address] Medical Branch furosemide 2023-0 Yes Univers 40 mg 2-01 ity of tablet 00:00: [place] [address] Medical Branch furosemide 2023-0 Yes Univers 40 mg 2-01 ity of tablet 00:00: [place] [address] Medical Branch furosemide 2023-0 Yes Univers 40 mg 2-01 ity of tablet 00:00: [place] [address] Medical Branch furosemide 2023-0 Yes Univers 40 mg 2-01 ity of tablet 00:00: [place] [address] Medical Branch furosemide 2023-0 Yes Univers 40 mg 2-01 ity of tablet 00:00: [place] [address] Medical Branch furosemide 2023-0 Yes Univers 40 mg 2-01 ity of tablet 00:00: [place] [address] Medical Branch furosemide 2023-0 Yes Univers 40 mg 2-01 ity of tablet 00:00: [place] [address] Medical Branch furosemide 2023-0 Yes Univers 40 mg 2-01 ity of tablet 00:00: [place] [address] Medical Branch furosemide 2023-0 Yes Univers 40 mg 2-01 ity of tablet 00:00: [place] [address] Medical Branch furosemide 2023-0 Yes Univers 40 mg 2-01 ity of tablet 00:00: [place] Medical Branch furosemide 2022-0 Yes Univers 40 mg 2-01 ity of tablet 00:00: [place] Medical Branch furosemide 2022-0 Yes Univers 40 mg 2-01 ity of tablet 00:00: [place] Medical Branch furosemide 2022-0 Yes Univers 40 mg 2-01 ity of tablet 00:00: [place] Medical Branch furosemide 2022-0 Yes Univers 40 mg 2-01 ity of tablet 00:00: [place] Medical Branch furosemide 2022-0 Yes Univers 40 mg 2-01 ity of tablet 00:00: [place] Medical Branch furosemide 2022-0 Yes Univers 40 mg 2-01 ity of tablet 00:00: [place] Medical Branch furosemide 2022-0 Yes Univers 40 mg 2-01 ity of tablet 00:00: [place] Medical Branch furosemide 2022-0 Yes Univers 40 mg 2-01 ity of tablet 00:00: [place] [facility] furosemide 2022-0 Yes Univers 40 mg 2-01 ity of tablet 00:00: [place] Medical Branch furosemide 2022-0 Yes Univers 40 mg 2-01 ity of tablet 00:00: [place] [facility] lidocaine 2022- No 5mL 5 mL, Univer s 1% (PF) 10-02 Subcutaneo ity o f (XYLOCAINE) 22:30: 22:45 us, ONCE, [place] injection 5 00 :00 1 dose, On Me dical mL [facility] 10/02/22 at 1630, Routine NaCl 0.9% Yes 10mL 10 mL, Univer s (NS) 10-02 Slow IV ity of injection 22:24: Push, PRN, [place] 10 mL 58 Starting Medical on [facility] 10/02/22 at 1624, Until Discontinu ed, Routine, line maintenanc e lidocaine Yes 5mL 5 mL, Univers 1% (PF) 10-02 Subcutaneo ity of (XYLOCAINE) 21:57: [place], PRN, [place] injection 5 16 Starting Medi joseph mL on [facility] 10/02/22 at 1557, Until Discontinu ed, Routine, Local anesthesia D5W 0.45% 0 2022- No IV Univers NaCl 1-31 02-02 Infusion, ity of (1/2NS) 1 L 21:27: 15:31 at 200 [place] + KCL 20 52 :30 mL/hr, PRN Medic al mEq - SEE Branch INSTRUCTIO NS, Starting on Sat10/02/22 at 1527, Until Sat10/04/22 at 0931, JOSE, Blood glucose control NaCl 0.9% 2022- No 1000mL at 250 Uni vers (NS) IV 10-02 mL/hr, ity of infusion 16:00: 21:35 1,000 mL, [place] 1,000 mL 00 :48 IV Medical Infusion, Branch CONTINUOUS , Starting on Sat10/02/22 at 1000, Until Sat10/02/22 at 1535, JOSE NaCl 0.9% 2022- No 1000mL at 999 Uni vers (NS) bolus 10-02 mL/hr, ity of infusion 14:00: 13:00 1,000 mL, [place] 1,000 mL 00 :00 IV Medical Infusion, Branch ONCE, 1 dose, On Sat10/02/22 at 0800, STAT insulin 2022- No 9U 9 Units, Univ rs regular 10-02 Slow IV ity of human 14:00: 13:11 Push, [place] (HUMULIN R) 00 :00 ONCE, 1 Medic al injection 9 dose, On Bran ch Units Sat10/02/22 at 0800, STAT
In dication for insulin: Hyperglyce yeimy cefdinir 2022-0 Yes [id number] 300mg Take 1 U nivers 300 mg 1-25 capsule by ity of capsule 00:00: mouth in [address] and 1 capsule in the evening. cefdinir 2023-0 Yes [id number] 300mg Take 1 U nivers 300 mg 1-25 capsule by ity of capsule 00:00: mouth in [address] and 1 capsule in the evening. cefdinir 2023-0 Yes [id number] 300mg Take 1 U nivers 300 mg 1-25 capsule by ity of capsule 00:00: mouth in [address] and 1 capsule in the evening. cefdinir 2023-0 Yes [id number] 300mg Take 1 U nivers 300 mg 1-25 capsule by ity of capsule 00:00: mouth in [place] 00 the Medical morning Branch and 1 capsule in the evening. cefdinir 3-0 Yes [id number] 300mg Take 1 U nivers 300 mg 1-25 capsule by ity of capsule 00:00: mouth in [place] 00 the Medical morning Branch and 1 capsule in the evening. cefdinir 3-0 2023- No [id number] 300mg Take 1 Univers 300 mg 1-25 10-05 capsule by ity of capsule 00:00: 00:00 mouth in [place] 00 :00 the Medical morning Branch and 1 capsule in the evening. losartan 25 2022-0 Yes [id number] 25mg Take 1 Univers mg tablet 1-24 tablet by ity o f 00:00: mouth in [place] 00 the Medical morning. Branch losartan 25 2022-0 Yes [id number] 25mg Take 1 Univers mg tablet 1-24 tablet by ity o f 00:00: mouth in [place] 00 the Medical morning. Branch losartan 25 2022-0 Yes [id number] 25mg Take 1 Univers mg tablet 1-24 tablet by ity o f 00:00: mouth in [place] 00 the Medical morning. Branch losartan 25 2022-0 Yes [id number] 25mg Take 1 Univers mg tablet 1-24 tablet by ity o f 00:00: mouth in [place] 00 the Medical morning. Branch losartan 25 2022-0 Yes [id number] 25mg Take 1 Univers mg tablet 1-24 tablet by ity o f 00:00: mouth in [place] 00 the Medical morning. Branch losartan 25 2022-0 Yes [id number] 25mg Take 1 Univers mg tablet 1-24 tablet by ity o f 00:00: mouth in [place] 00 the Medical morning. Branch losartan 25 2022-0 Yes [id number] 25mg Take 1 Univers mg tablet 1-24 tablet by ity o f 00:00: mouth in [place] 00 the Medical morning. Branch losartan 25 2022-0 Yes [id number] 25mg Take 1 Univers mg tablet 1-24 tablet by ity o f 00:00: mouth in [place] 00 the Medical morning. Branch losartan 25 2022-0 Yes [id number] 25mg Take 1 Univers mg tablet 1-24 tablet by ity o f 00:00: mouth in [place] 00 the Medical morning. Branch losartan 25 2022-0 Yes [id number] 25mg Take 1 Univers mg tablet 1-24 tablet by ity o f 00:00: mouth in [place] 00 the Medical morning. Branch losartan 25 2022-0 Yes [id number] 25mg Take 1 Univers mg tablet 1-24 tablet by ity o f 00:00: mouth in [place] 00 the Medical morning. Branch losartan 25 2022-0 Yes [id number] 25mg Take 1 Univers mg tablet 1-24 tablet by ity o f 00:00: mouth in [place] 00 the Medical morning. Branch losartan 25 2022-0 Yes [id number] 25mg Take 1 Univers mg tablet 1-24 tablet by ity o f 00:00: mouth in [place] 00 the Medical morning. Branch losartan 25 2022-0 Yes [id number] 25mg Take 1 Univers mg tablet 1-24 tablet by ity o f 00:00: mouth in [place] the Medical morning. Branch losartan 25 2022-0 Yes [id number] 25mg Take 1 Univers mg tablet 1-24 tablet by ity o f 00:00: mouth in [place] the Medical morning. Branch losartan 25 2022-0 Yes [id number] 25mg Take 1 Univers mg tablet 1-24 tablet by ity o f 00:00: mouth in [place] the Medical morning. Branch losartan 25 2022-0 Yes [id number] 25mg Take 1 Univers mg tablet 1-24 tablet by ity o f 00:00: mouth in [place] the Medical morning. Branch losartan 25 2022-0 Yes [id number] 25mg Take 1 Univers mg tablet 1-24 tablet by ity o f 00:00: mouth in [place] the Medical morning. Branch losartan 25 2022-0 Yes [id number] 25mg Take 1 Univers mg tablet 1-24 tablet by ity o f 00:00: mouth in [place] 00 the Medical morning. Branch losartan 25 2022-0 Yes [id number] 25mg Take 1 Univers mg tablet 1-24 tablet by ity o f 00:00: mouth in [place] 00 the Medical morning. Branch losartan 25 2022-0 Yes [id number] 25mg Take 1 Univers mg tablet 1-24 tablet by ity o f 00:00: mouth in [place] 00 the Medical morning. Branch losartan 25 2022-0 Yes [id number] 25mg Take 1 Univers mg tablet 1-24 tablet by ity o f 00:00: mouth in [place] 00 the Medical morning. Branch losartan 25 2022-0 Yes [id number] 25mg Take 1 Univers mg tablet 1-24 tablet by ity o f 00:00: mouth in [place] 00 the Medical morning. Branch losartan 25 2022-0 Yes [id number] 25mg Take 1 Univers mg tablet 1-24 tablet by ity o f 00:00: mouth in [place] 00 the Medical morning. Branch losartan 25 2022-0 Yes [id number] 25mg Take 1 Univers mg tablet 1-24 tablet by ity o f 00:00: mouth in [place] 00 the Medical morning. Branch losartan 25 2022-0 Yes [id number] 25mg Take 1 Univers mg tablet 1-24 tablet by ity o f 00:00: mouth in [place] 00 the Medical morning. Branch losartan 25 2022-0 Yes [id number] 25mg Take 1 Univers mg tablet 1-24 tablet by ity o f 00:00: mouth in [place] 00 the Medical morning. Branch losartan 25 2022-0 Yes [id number] 25mg Take 1 Univers mg tablet 1-24 tablet by ity o f 00:00: mouth in [place] the Medical morning. Branch losartan 25 2022-0 Yes [id number] 25mg Take 1 Univers mg tablet 1-24 tablet by ity o f 00:00: mouth in [place] 00 the Medical morning. Branch losartan 25 2022-0 Yes [id number] 25mg Take 1 Univers mg tablet 1-24 tablet by ity o f 00:00: mouth in [place] 00 the Medical morning. Branch losartan 25 2022-0 Yes [id number] 25mg Take 1 Univers mg tablet 1-24 tablet by ity o f 00:00: mouth in [place] 00 the Medical morning. Branch losartan 25 2022-0 Yes [id number] 25mg Take 1 Univers mg tablet 1-24 tablet by ity o f 00:00: mouth in [place] 00 the Medical morning. Branch losartan 25 3-0 Yes [id number] 25mg Take 1 Univers mg tablet 1-24 tablet by ity o f 00:00: mouth in [place] 00 the Medical morning. Branch losartan 25 2022-0 Yes [id number] 25mg Take 1 Univers mg tablet 1-24 tablet by ity o f 00:00: mouth in [place] 00 the Medical morning. Branch losartan 25 2022-0 Yes [id number] 25mg Take 1 Univers mg tablet 1-24 tablet by ity o f 00:00: mouth in [place] 00 the Medical morning. Branch losartan 25 2022-0 Yes [id number] 25mg Take 1 Univers mg tablet 1-24 tablet by ity o f 00:00: mouth in [place] 00 the Medical morning. Branch losartan 25 2022-0 Yes [id number] 25mg Take 1 Univers mg tablet 1-24 tablet by ity o f 00:00: mouth in [place] 00 the Medical morning. Branch losartan 25 2022-0 Yes [id number] 25mg Take 1 Univers mg tablet 1-24 tablet by ity o f 00:00: mouth in [place] 00 the Medical morning. Branch losartan 25 2022-0 Yes [id number] 25mg Take 1 Univers mg tablet 1-24 tablet by ity o f 00:00: mouth in [place] the Medical morning. Branch losartan 25 2022-0 Yes [id number] 25mg Take 1 Univers mg tablet 1-24 tablet by ity o f 00:00: mouth in [place] the Medical morning. Branch losartan 25 2022-0 Yes [id number] 25mg Take 1 Univers mg tablet 1-24 tablet by ity o f 00:00: mouth in [place] the Medical morning. Branch losartan 25 2022-0 Yes [id number] 25mg Take 1 Univers mg tablet 1-24 tablet by ity o f 00:00: mouth in [place] the Medical morning. Branch losartan 25 2022-0 Yes [id number] 25mg Take 1 Univers mg tablet 1-24 tablet by ity o f 00:00: mouth in [place] the Medical morning. Branch losartan 25 2022-0 Yes [id number] 25mg Take 1 Univers mg tablet 1-24 tablet by ity o f 00:00: mouth in [place] 00 the Medical morning. Branch hydrALAZINE 2022-0 Yes [id number] 50mg Take 1 Univers 50 mg 1-20 tablet by ity of tablet 00:00: mouth [place] 00 every 8 Medical (eight) Branch hours. dapaglifloz 2022-0 Yes [id number] 10mg Take 1 Univers in 1-20 tablet by ity of (FARXIGA) 00:00: mouth in [facility] s 10 mg 00 the Medical tablet morning. Branch isosorbide 2023-0 Yes [id number] 20mg Take 1 U nivers dinitrate 1-20 tablet by ity o f 20 mg 00:00: mouth [place] tablet 00 every 8 Medical (eight) Branch hours. metoprolol 2023-0 Yes [id number] 50mg Take 1 U nivers succinate 1-20 tablet by ity o f XL 50 mg 24 00:00: mouth in [place] hr tablet 00 the Medical morning. Branch hydrALAZINE 3-0 Yes [id number] 50mg Take 1 Univers 50 mg 1-20 tablet by ity of tablet 00:00: mouth [place] 00 every 8 Medical (eight) Branch hours. dapaglifloz 3-0 Yes [id number] 10mg Take 1 Univers in 1-20 tablet by ity of (FARXIGA) 00:00: mouth [place] 10 mg 00 the Medical tablet morning. Branch isosorbide 3-0 Yes [id number] 20mg Take 1 U nivers dinitrate 1-20 tablet by ity o f 20 mg 00:00: mouth [place] tablet 00 every 8 Medical (eight) Branch hours. metoprolol 3-0 Yes [id number] 50mg Take 1 U nivers succinate 1-20 tablet by ity o f XL 50 mg 24 00:00: mouth in [place] hr tablet 00 the Medical morning. Branch hydrALAZINE 3-0 Yes [id number] 50mg Take 1 Univers 50 mg 1-20 tablet by ity of tablet 00:00: mouth [place] 00 every 8 Medical (eight) Branch hours. dapaglifloz 3-0 Yes [id number] 10mg Take 1 Univers in 1-20 tablet by ity of (FARXIGA) 00:00: mouth in [place] 10 mg 00 the Medical tablet morning. Branch isosorbide 2023-0 Yes [id number] 20mg Take 1 U nivers dinitrate 1-20 tablet by ity o f 20 mg 00:00: mouth [place] tablet 00 every 8 Medical (eight) Branch hours. metoprolol 2023-0 Yes [id number] 50mg Take 1 U nivers succinate 1-20 tablet by ity o f XL 50 mg 24 00:00: mouth in [place] hr tablet 00 the Medical morning. Branch hydrALAZINE 3-0 Yes [id number] 50mg Take 1 Univers 50 mg 1-20 tablet by ity of tablet 00:00: mouth [place] 00 every 8 Medical (eight) Branch hours. dapaglifloz 2023-0 Yes [id number] 10mg Take 1 Univers in 1-20 tablet by [facility] ([facility]ARXIGA) 00:00: mouth [place] 10 mg 00 the Medical tablet morning. Branch isosorbide 2023-0 Yes [id number] 20mg Take 1 [facility] dinitrate 1-20 tablet by [facility] 20 mg 00:00: mouth [place] tablet 00 every 8 Medical (eight) Branch hours. metoprolol 2023-0 Yes [id number] 50mg Take 1 [facility] succinate 1-20 tablet by [facility] f XL 50 mg 24 00:00: mouth in [place] hr tablet 00 the Medical morning. Branch hydrALAZINE 2023-0 Yes [id number] 50mg Take 1 [facility] 50 mg 1-20 tablet by [facility] tablet 00:00: mouth [place] 00 every 8 Medical (eight) Branch hours. dapaglifloz 2023-0 Yes [id number] 10mg Take 1 [facility] 1-20 tablet by [facility] (FARXIGA) 00:00: mouth [place] 10 mg 00 the Medical tablet morning. Branch isosorbide 2023-0 Yes [id number] 20mg Take 1 [facility] dinitrate 1-20 tablet by [facility] 20 mg 00:00: mouth [place] tablet 00 every 8 Medical (eight) Branch hours. metoprolol 2023-0 Yes [id number] 50mg Take 1 [facility] succinate 1-20 tablet by [facility] f XL 50 mg 24 00:00: mouth in [place] hr tablet 00 the Medical morning. Branch hydrALAZINE 2023-0 Yes [id number] 50mg Take 1 [facility] 50 mg 1-20 tablet by [facility] tablet 00:00: mouth [place] 00 every 8 Medical (eight) Branch hours. dapaglifloz 2023-0 Yes [id number] 10mg Take 1 [facility] 1-20 tablet by [facility] (FARXIGA) 00:00: mouth [place] 10 mg 00 the Medical tablet morning. Branch isosorbide 2023-0 Yes [id number] 20mg Take 1 [facility] dinitrate 1-20 tablet by [facility] f 20 mg 00:00: mouth [place] tablet 00 every 8 Medical (eight) Branch hours. metoprolol 2023-0 Yes [id number] 50mg Take 1 [facility] succinate 1-20 tablet by [facility] f XL 50 mg 24 00:00: mouth in [place] hr tablet 00 the Medical morning. Branch hydrALAZINE 2023-0 Yes [id number] 50mg Take 1 [facility] 50 mg 1-20 tablet by [facility] tablet 00:00: mouth [place] 00 every 8 Medical (eight) Branch hours. dapaglifloz 2023-0 Yes [id number] 10mg Take 1 [facility] in 1-20 tablet by [facility] (FARXIGA) 00:00: mouth [place] 10 mg 00 the Medical tablet morning. Branch isosorbide 2023-0 Yes [id number] 20mg Take 1 [facility] dinitrate 1-20 tablet by [facility] f 20 mg 00:00: mouth [place] tablet 00 every 8 Medical (eight) Branch hours. metoprolol 2023-0 Yes [id number] 50mg Take 1 [facility] succinate 1-20 tablet by [facility] f XL 50 mg 24 00:00: mouth in [place] hr tablet 00 the Medical morning. Branch hydrALAZINE 3-0 Yes [id number] 50mg Take 1 [facility] 50 mg 1-20 tablet by [facility] tablet 00:00: mouth [place] 00 every 8 Medical (eight) Branch hours. dapaglifloz 2023-0 Yes [id number] 10mg Take 1 [facility] in 1-20 tablet by [facility] (FARXIGA) 00:00: mouth [place] 10 mg 00 the Medical tablet morning. Branch isosorbide 2023-0 Yes [id number] 20mg Take 1 [facility] dinitrate 1-20 tablet by [facility] f 20 mg 00:00: mouth [place] tablet 00 every 8 Medical (eight) Branch hours. metoprolol 2023-0 Yes [id number] 50mg Take 1 [facility] succinate 1-20 tablet by [facility] f XL 50 mg 24 00:00: mouth in [place] hr tablet 00 the Medical morning. Branch hydrALAZINE 2023-0 Yes [id number] 50mg Take 1 [facility] 50 mg 1-20 tablet by [facility] tablet 00:00: mouth [place] 00 every 8 Medical (eight) Branch hours. dapaglifloz 2023-0 Yes [id number] 10mg Take 1 [facility] in 1-20 tablet by [facility] (FARGA) 00:00: mouth [place] 10 mg 00 the Medical tablet morning. Branch isosorbide 3-0 Yes [id number] 20mg Take 1 [facility] dinitrate 1-20 tablet by [facility] f 20 mg 00:00: mouth [place] tablet 00 every 8 Medical (eight) Branch hours. metoprolol 3-0 Yes [id number] 50mg Take 1 [facility] succinate 1-20 tablet by [facility] f XL 50 mg 24 00:00: mouth in [place] hr tablet 00 the Medical morning. Branch isosorbide 3-0 Yes [id number] 20mg Take 1 [facility] dinitrate 1-20 tablet by [facility] f 20 mg 00:00: mouth [place] tablet 00 every 8 Medical (eight) Branch hours. metoprolol 3-0 Yes [id number] 50mg Take 1 [facility] succinate 1-20 tablet by [facility] f XL 50 mg 24 00:00: mouth in [place] hr tablet 00 the Medical morning. Branch isosorbide 3-0 Yes [id number] 20mg Take 1 [facility] dinitrate 1-20 tablet by [facility] f 20 mg 00:00: mouth [place] tablet 00 every 8 Medical (eight) Branch hours. metoprolol 3-0 Yes [id number] 50mg Take 1 [facility] succinate 1-20 tablet by [facility] f XL 50 mg 24 00:00: mouth in [place] hr tablet 00 the Medical morning. Branch isosorbide 3-0 Yes [id number] 20mg Take 1 [facility] dinitrate 1-20 tablet by [facility] f 20 mg 00:00: mouth [place] tablet 00 every 8 Medical (eight) Branch hours. metoprolol 3-0 Yes [id number] 50mg Take 1 [facility] succinate 1-20 tablet by [facility] f XL 50 mg 24 00:00: mouth in [place] hr tablet 00 the Medical morning. Branch isosorbide 2023-0 Yes [id number] 20mg Take 1 [facility] dinitrate 1-20 tablet by [facility] f 20 mg 00:00: mouth [place] tablet 00 every 8 Medical (eight) Branch hours. metoprolol 2023-0 Yes [id number] 50mg Take 1 [facility] succinate 1-20 tablet by [facility] f XL 50 mg 24 00:00: mouth in [place] hr tablet 00 the Medical morning. Branch isosorbide 3-0 Yes [id number] 20mg Take 1 [facility] dinitrate 1-20 tablet by [facility] f 20 mg 00:00: mouth [place] tablet 00 every 8 Medical (eight) Branch hours. metoprolol 3-0 Yes [id number] 50mg Take 1 [facility] succinate 1-20 tablet by [facility] f XL 50 mg 24 00:00: mouth in [place] hr tablet 00 the Medical morning. Branch isosorbide 3-0 Yes [id number] 20mg Take 1 [facility] dinitrate 1-20 tablet by [facility] f 20 mg 00:00: mouth [place] tablet 00 every 8 Medical (eight) Branch hours. metoprolol 3-0 Yes [id number] 50mg Take 1 [facility] succinate 1-20 tablet by [facility] f XL 50 mg 24 00:00: mouth in [place] hr tablet 00 the Medical morning. Branch isosorbide 3-0 Yes [id number] 20mg Take 1 [facility] dinitrate 1-20 tablet by [facility] f 20 mg 00:00: mouth [place] tablet 00 every 8 Medical (eight) Branch hours. metoprolol 3-0 Yes [id number] 50mg Take 1 [facility] succinate 1-20 tablet by [facility] f XL 50 mg 24 00:00: mouth in [place] hr tablet 00 the Medical morning. Branch isosorbide 3-0 Yes [id number] 20mg Take 1 [facility] dinitrate 1-20 tablet by [facility] f 20 mg 00:00: mouth [place] tablet 00 every 8 Medical (eight) Branch hours. metoprolol 3-0 Yes [id number] 50mg Take 1 [facility] succinate 1-20 tablet by [facility] f XL 50 mg 24 00:00: mouth in [place] hr tablet 00 the Medical morning. Branch isosorbide 2023-0 Yes [id number] 20mg Take 1 [facility] dinitrate 1-20 tablet by [facility] f 20 mg 00:00: mouth [place] tablet 00 every 8 Medical (eight) Branch hours. metoprolol 2023-0 Yes [id number] 50mg Take 1 [facility] succinate 1-20 tablet by [facility] f XL 50 mg 24 00:00: mouth in [place] hr tablet 00 the Medical morning. Branch isosorbide 3-0 Yes [id number] 20mg Take 1 [facility] dinitrate 1-20 tablet by [facility] f 20 mg 00:00: mouth [place] tablet 00 every 8 Medical (eight) Branch hours. metoprolol 3-0 Yes [id number] 50mg Take 1 [facility] succinate 1-20 tablet by [facility] f XL 50 mg 24 00:00: mouth in [place] hr tablet 00 the Medical morning. Branch isosorbide 3-0 Yes [id number] 20mg Take 1 [facility] dinitrate 1-20 tablet by [facility] f 20 mg 00:00: mouth [place] tablet 00 every 8 Medical (eight) Branch hours. metoprolol 3-0 Yes [id number] 50mg Take 1 [facility] succinate 1-20 tablet by [facility] f XL 50 mg 24 00:00: mouth in [place] hr tablet 00 the Medical morning. Branch isosorbide 3-0 Yes [id number] 20mg Take 1 [facility] dinitrate 1-20 tablet by [facility] f 20 mg 00:00: mouth [place] tablet 00 every 8 Medical (eight) Branch hours. metoprolol 3-0 Yes [id number] 50mg Take 1 [facility] succinate 1-20 tablet by [facility] f XL 50 mg 24 00:00: mouth in [place] hr tablet 00 the Medical morning. Branch isosorbide 3-0 Yes [id number] 20mg Take 1 [facility] dinitrate 1-20 tablet by [facility] f 20 mg 00:00: mouth [place] tablet 00 every 8 Medical (eight) Branch hours. metoprolol 3-0 Yes [id number] 50mg Take 1 [facility] succinate 1-20 tablet by [facility] f XL 50 mg 24 00:00: mouth in [place] hr tablet 00 the Medical morning. Branch isosorbide 2023-0 Yes [id number] 20mg Take 1 [facility] dinitrate 1-20 tablet by [facility] f 20 mg 00:00: mouth [place] tablet 00 every 8 Medical (eight) Branch hours. metoprolol 2023-0 Yes [id number] 50mg Take 1 [facility] succinate 1-20 tablet by [facility] f XL 50 mg 24 00:00: mouth in [place] hr tablet 00 the Medical morning. Branch isosorbide 2023-0 Yes [id number] 20mg Take 1 [facility] dinitrate 1-20 tablet by [facility] f 20 mg 00:00: mouth [place] tablet 00 every 8 Medical (eight) Branch hours. metoprolol 3-0 Yes [id number] 50mg Take 1 [facility] succinate 1-20 tablet by [facility] f XL 50 mg 24 00:00: mouth in [place] hr tablet 00 the Medical morning. Branch isosorbide 3-0 Yes [id number] 20mg Take 1 [facility] dinitrate 1-20 tablet by [facility] f 20 mg 00:00: mouth [place] tablet 00 every 8 Medical (eight) Branch hours. metoprolol 3-0 Yes [id number] 50mg Take 1 [facility] succinate 1-20 tablet by [facility] f XL 50 mg 24 00:00: mouth in [place] hr tablet 00 the Medical morning. Branch isosorbide 3-0 Yes [id number] 20mg Take 1 [facility] dinitrate 1-20 tablet by [facility] f 20 mg 00:00: mouth [place] tablet 00 every 8 Medical (eight) Branch hours. metoprolol 2022-0 Yes [id number] 50mg Take 1 [facility] succinate 1-20 tablet by [facility] f XL 50 mg 24 00:00: mouth in [place] hr tablet 00 the Medical morning. Branch isosorbide 3-0 Yes [id number] 20mg Take 1 [facility] dinitrate 1-20 tablet by [facility] f 20 mg 00:00: mouth [place] tablet 00 every 8 Medical (eight) Branch hours. metoprolol 3-0 Yes [id number] 50mg Take 1 [facility] succinate 1-20 tablet by [facility] f XL 50 mg 24 00:00: mouth in [place] hr tablet 00 the Medical morning. Branch isosorbide 3-0 Yes [id number] 20mg Take 1 [facility] dinitrate 1-20 tablet by [facility] f 20 mg 00:00: mouth [place] tablet 00 every 8 Medical (eight) Branch hours. metoprolol 3-0 Yes [id number] 50mg Take 1 [facility] succinate 1-20 tablet by [facility] f XL 50 mg 24 00:00: mouth in [place] hr tablet 00 the Medical morning. Branch isosorbide 3-0 Yes [id number] 20mg Take 1 [facility] dinitrate 1-20 tablet by [facility] f 20 mg 00:00: mouth [place] tablet 00 every 8 Medical (eight) Branch hours. metoprolol 3-0 Yes [id number] 50mg Take 1 [facility] succinate 1-20 tablet by [facility] f XL 50 mg 24 00:00: mouth in [place] hr tablet 00 the Medical morning. Branch isosorbide 3-0 Yes [id number] 20mg Take 1 [facility] dinitrate 1-20 tablet by [facility] f 20 mg 00:00: mouth [place] tablet 00 every 8 Medical (eight) Branch hours. metoprolol 3-0 Yes [id number] 50mg Take 1 [facility] succinate 1-20 tablet by [facility] f XL 50 mg 24 00:00: mouth in [place] hr tablet 00 the Medical morning. Branch isosorbide 3-0 Yes [id number] 20mg Take 1 [facility] dinitrate 1-20 tablet by [facility] f 20 mg 00:00: mouth [place] tablet 00 every 8 Medical (eight) Branch hours. metoprolol 2022-0 Yes [id number] 50mg Take 1 [facility] succinate 1-20 tablet by [facility] f XL 50 mg 24 00:00: mouth in [place] hr tablet 00 the Medical morning. Branch isosorbide 3-0 Yes [id number] 20mg Take 1 [facility] dinitrate 1-20 tablet by [facility] f 20 mg 00:00: mouth [place] tablet 00 every 8 Medical (eight) Branch hours. metoprolol 3-0 Yes [id number] 50mg Take 1 [facility] succinate 1-20 tablet by [facility] f XL 50 mg 24 00:00: mouth in [place] hr tablet 00 the Medical morning. Branch isosorbide 3-0 Yes [id number] 20mg Take 1 [facility] dinitrate 1-20 tablet by [facility] f 20 mg 00:00: mouth [place] tablet 00 every 8 Medical (eight) Branch hours. metoprolol 3-0 Yes [id number] 50mg Take 1 [facility] succinate 1-20 tablet by [facility] f XL 50 mg 24 00:00: mouth in [place] hr tablet 00 the Medical morning. Branch isosorbide 3-0 Yes [id number] 20mg Take 1 [facility] dinitrate 1-20 tablet by [facility] f 20 mg 00:00: mouth [place] tablet 00 every 8 Medical (eight) Branch hours. metoprolol 3-0 Yes [id number] 50mg Take 1 [facility] succinate 1-20 tablet by [facility] f XL 50 mg 24 00:00: mouth in [place] hr tablet 00 the Medical morning. Branch isosorbide 3-0 Yes [id number] 20mg Take 1 [facility] dinitrate 1-20 tablet by [facility] f 20 mg 00:00: mouth [place] tablet 00 every 8 Medical (eight) Branch hours. metoprolol 3-0 Yes [id number] 50mg Take 1 [facility] succinate 1-20 tablet by [facility] f XL 50 mg 24 00:00: mouth in [place] hr tablet 00 the Medical morning. Branch isosorbide 3-0 Yes [id number] 20mg Take 1 [facility] dinitrate 1-20 tablet by [facility] f 20 mg 00:00: mouth [place] tablet 00 every 8 Medical (eight) Branch hours. metoprolol 2022-0 Yes [id number] 50mg Take 1 [facility] succinate 1-20 tablet by [facility] f XL 50 mg 24 00:00: mouth in [place] hr tablet 00 the Medical morning. Branch isosorbide 3-0 Yes [id number] 20mg Take 1 [facility] dinitrate 1-20 tablet by [facility] f 20 mg 00:00: mouth [place] tablet 00 every 8 Medical (eight) Branch hours. metoprolol 3-0 Yes [id number] 50mg Take 1 [facility] succinate 1-20 tablet by [facility] f XL 50 mg 24 00:00: mouth in [place] hr tablet 00 the Medical morning. Branch isosorbide 3-0 Yes [id number] 20mg Take 1 [facility] dinitrate 1-20 tablet by [facility] f 20 mg 00:00: mouth [place] tablet 00 every 8 Medical (eight) Branch hours. metoprolol 3-0 Yes [id number] 50mg Take 1 [facility] succinate 1-20 tablet by [facility] f XL 50 mg 24 00:00: mouth in [place] hr tablet 00 the Medical morning. Branch isosorbide 3-0 Yes [id number] 20mg Take 1 [facility] dinitrate 1-20 tablet by [facility] f 20 mg 00:00: mouth [place] tablet 00 every 8 Medical (eight) Branch hours. metoprolol 3-0 Yes [id number] 50mg Take 1 [facility] succinate 1-20 tablet by [facility] f XL 50 mg 24 00:00: mouth in [place] hr tablet 00 the Medical morning. Branch isosorbide 3-0 Yes [id number] 20mg Take 1 [facility] dinitrate 1-20 tablet by [facility] f 20 mg 00:00: mouth [place] tablet 00 every 8 Medical (eight) Branch hours. metoprolol 3-0 Yes [id number] 50mg Take 1 [facility] succinate 1-20 tablet by [facility] f XL 50 mg 24 00:00: mouth in [place] hr tablet 00 the Medical morning. Branch isosorbide 3-0 Yes [id number] 20mg Take 1 [facility] dinitrate 1-20 tablet by [facility] f 20 mg 00:00: mouth [place] tablet 00 every 8 Medical (eight) Branch hours. metoprolol 3-0 Yes [id number] 50mg Take 1 [facility] succinate 1-20 tablet by [facility] f XL 50 mg 24 00:00: mouth in [place] hr tablet 00 the Medical morning. Branch isosorbide 3-0 Yes [id number] 20mg Take 1 [facility] dinitrate 1-20 tablet by [facility] f 20 mg 00:00: mouth [place] tablet 00 every 8 Medical (eight) Branch hours. metoprolol 3-0 Yes [id number] 50mg Take 1 [facility] succinate 1-20 tablet by [facility] f XL 50 mg 24 00:00: mouth in [place] hr tablet 00 the Medical morning. Branch isosorbide 3-0 Yes [id number] 20mg Take 1 [facility] dinitrate 1-20 tablet by [facility] f 20 mg 00:00: mouth [place] tablet 00 every 8 Medical (eight) Branch hours. metoprolol 2023-0 Yes [id number] 50mg Take 1 [facility] succinate 1-20 tablet by [facility] f XL 50 mg 24 00:00: mouth in [place] hr tablet 00 the Medical morning. Branch isosorbide 2023-0 Yes [id number] 20mg Take 1 [facility] dinitrate 1-20 tablet by [facility] f 20 mg 00:00: mouth [place] tablet 00 every 8 Medical (eight) Branch hours. metoprolol 2023-0 Yes [id number] 50mg Take 1 [facility] succinate 1-20 tablet by [facility] f XL 50 mg 24 00:00: mouth in [place] hr tablet 00 the Medical morning. Branch isosorbide 3-0 Yes [id number] 20mg Take 1 [facility] dinitrate 1-20 tablet by [facility] f 20 mg 00:00: mouth [place] tablet 00 every 8 Medical (eight) Branch hours. metoprolol 3-0 Yes [id number] 50mg Take 1 [facility] succinate 1-20 tablet by [facility] f XL 50 mg 24 00:00: mouth in [place] hr tablet 00 the Medical morning. Branch isosorbide 3-0 Yes [id number] 20mg Take 1 [facility] dinitrate 1-20 tablet by [facility] f 20 mg 00:00: mouth [place] tablet 00 every 8 Medical (eight) Branch hours. metoprolol 3-0 Yes [id number] 50mg Take 1 [facility] succinate 1-20 tablet by [facility] f XL 50 mg 24 00:00: mouth in [place] hr tablet 00 the Medical morning. Branch isosorbide 3-0 Yes [id number] 20mg Take 1 [facility] dinitrate 1-20 tablet by [facility] f 20 mg 00:00: mouth [place] tablet 00 every 8 Medical (eight) Branch hours. metoprolol 3-0 Yes [id number] 50mg Take 1 [facility] succinate 1-20 tablet by [facility] f XL 50 mg 24 00:00: mouth in [place] hr tablet 00 the Medical morning. Branch hydrALAZINE 3-0 3- No [id number] 50mg Take 1 [facility] 50 mg 1-20 -03 tablet by [facility] tablet 00:00: 00:00 mouth [place] 00 :00 every 8 Medical (eight) Branch hours. dapaglifloz 3-0 3- No [id number] 10mg Take 1 [facility] in 1-20 -03 tablet by [facility] (FARXIGA) 00:00: 00:00 mouth in [place] 10 mg 00 :00 the Medical tablet morning. Branch isosorbide 3-0 3- No 10mg Take 0.5 [facility] [place] dinitrate 1-20 -20 tablets by [facility] 20 mg 00:00: 00:00 mouth [place] tablet 00 :00 every 8 Medical (eight) Branch hours. metoprolol 2022- No 25mg Take 0.5 [facility] [place] succinate 1-20 01-20 tablets by [facility] XL 50 mg 24 00:00: 00:00 mouth in [place] hr tablet 00 :00 the Medical morning. Branch isosorbide 2022- No 10mg Take 0.5 [facility] [place] dinitrate 1-20 01-20 tablets by [facility] 20 mg 00:00: 00:00 mouth [place] tablet 00 :00 every 8 Medical (eight) Branch hours. metoprolol 2022- No 25mg Take 0.5 [facility] [place] succinate 1-20 -20 tablets by [facility] XL 50 mg 24 00:00: 00:00 mouth in [place] hr tablet 00 :00 the Medical morning. Branch pioglitazon Yes [id number] 15mg Take 1 [facility] e (ACTOS) 1-17 tablet by [facility] f 15 mg 00:00: mouth in [place] tablet 00 the Medical morning. Branch pioglitazon 2022- No [id number] 15mg Take 1 [facility] (ACTOS) 1-17 -21 tablet by [facility] 15 mg 00:00: 00:00 mouth in [place] tablet 00 :00 the Medical morning. Branch pioglitazon 2022- No [id number] 15mg Take 1 [facility] (ACTOS) 1-17 -21 tablet by [facility] 15 mg 00:00: 00:00 mouth in [place] tablet 00 :00 the Medical morning. Branch aspirin 81 2022-0 Yes [id number] 81mg Take 1 [facility] mg EC 1-08 tablet by [facility] tablet 00:00: mouth in [place] 00 the Medical morning. Branch aspirin 81 2022-0 Yes [id number] 81mg Take 1 [facility] mg EC 1-08 tablet by [facility] tablet 00:00: mouth in [place] 00 the Medical morning. Branch aspirin 81 2022-0 Yes [id number] 81mg Take 1 [facility] mg EC 1-08 tablet by [facility] tablet 00:00: mouth in [place] 00 the Medical morning. Branch aspirin 81 2022-0 Yes [id number] 81mg Take 1 [facility] mg EC 1-08 tablet by [facility] tablet 00:00: mouth in [place] 00 the Medical morning. Branch aspirin 81 2023-0 Yes [id number] 81mg Take 1 [facility] mg EC 1-08 tablet by [facility] tablet 00:00: mouth in [place] 00 the Medical morning. Branch aspirin 81 2023-0 Yes [id number] 81mg Take 1 [facility] mg EC 1-08 tablet by [facility] tablet 00:00: mouth in [place] 00 the Medical morning. Branch aspirin 81 2023-0 Yes [id number] 81mg Take 1 [facility] mg EC 1-08 tablet by [facility] tablet 00:00: mouth in [place] 00 the Medical morning. Branch aspirin 81 2023-0 Yes [id number] 81mg Take 1 [facility] mg EC 1-08 tablet by [facility] tablet 00:00: mouth in [place] 00 the Medical morning. Branch aspirin 81 2023-0 Yes [id number] 81mg Take 1 [facility] mg EC 1-08 tablet by [facility] tablet 00:00: mouth in [place] 00 the Medical morning. Branch aspirin 81 3-0 Yes [id number] 81mg Take 1 [facility] mg EC 1-08 tablet by [facility] tablet 00:00: mouth in [place] 00 the Medical morning. Branch aspirin 81 3-0 Yes [id number] 81mg Take 1 [facility] mg EC 1-08 tablet by [facility] tablet 00:00: mouth in [place] 00 the Medical morning. Branch aspirin 81 2023-0 Yes [id number] 81mg Take 1 [facility] mg EC 1-08 tablet by [facility] tablet 00:00: mouth in [place] 00 the Medical morning. Branch aspirin 81 2023-0 Yes [id number] 81mg Take 1 [facility] mg EC 1-08 tablet by [facility] tablet 00:00: mouth in [place] 00 the Medical morning. Branch aspirin 81 2023-0 Yes [id number] 81mg Take 1 [facility] mg EC 1-08 tablet by [facility] tablet 00:00: mouth in [place] 00 the Medical morning. Branch aspirin 81 2023-0 Yes [id number] 81mg Take 1 [facility] mg EC 1-08 tablet by [facility] tablet 00:00: mouth in [place] 00 the Medical morning. Branch aspirin 81 2023-0 Yes [id number] 81mg Take 1 [facility] mg EC 1-08 tablet by [facility] tablet 00:00: mouth in [place] 00 the Medical morning. Branch aspirin 81 3-0 Yes [id number] 81mg Take 1 [facility] mg EC 1-08 tablet by [facility] tablet 00:00: mouth in [place] 00 the Medical morning. Branch aspirin 81 3-0 Yes [id number] 81mg Take 1 [facility] mg EC 1-08 tablet by [facility] tablet 00:00: mouth in [place] 00 the Medical morning. Branch aspirin 81 2023-0 Yes [id number] 81mg Take 1 [facility] mg EC 1-08 tablet by [facility] tablet 00:00: mouth in [place] 00 the Medical morning. Branch aspirin 81 3-0 Yes [id number] 81mg Take 1 [facility] mg EC 1-08 tablet by [facility] tablet 00:00: mouth in [place] 00 the Medical morning. Branch aspirin 81 2023-0 Yes [id number] 81mg Take 1 [facility] mg EC 1-08 tablet by [facility] tablet 00:00: mouth in [place] 00 the Medical morning. Branch aspirin 81 2022-0 Yes [id number] 81mg Take 1 [facility] mg EC 1-08 tablet by [facility] tablet 00:00: mouth in [place] 00 the Medical morning. Branch aspirin 81 2022-0 Yes [id number] 81mg Take 1 [facility] mg EC 1-08 tablet by [facility] tablet 00:00: mouth in [place] 00 the Medical morning. Branch aspirin 81 3-0 Yes [id number] 81mg Take 1 [facility] mg EC 1-08 tablet by [facility] tablet 00:00: mouth in [place] 00 the Medical morning. Branch aspirin 81 3-0 Yes [id number] 81mg Take 1 [facility] mg EC 1-08 tablet by [facility] tablet 00:00: mouth in [place] 00 the Medical morning. Branch aspirin 81 3-0 Yes [id number] 81mg Take 1 [facility] mg EC 1-08 tablet by [facility] tablet 00:00: mouth in [place] 00 the Medical morning. Branch aspirin 81 2023-0 Yes [id number] 81mg Take 1 [facility] mg EC 1-08 tablet by [facility] tablet 00:00: mouth in [place] 00 the Medical morning. Branch aspirin 81 2023-0 Yes [id number] 81mg Take 1 [facility] mg EC 1-08 tablet by [facility] tablet 00:00: mouth in [place] 00 the Medical morning. Branch aspirin 81 2023-0 Yes [id number] 81mg Take 1 [facility] mg EC 1-08 tablet by [facility] tablet 00:00: mouth in [place] 00 the Medical morning. Branch aspirin 81 2023-0 Yes [id number] 81mg Take 1 [facility] mg EC 1-08 tablet by [facility] tablet 00:00: mouth in [place] 00 the Medical morning. Branch aspirin 81 2023-0 Yes [id number] 81mg Take 1 [facility] mg EC 1-08 tablet by [facility] tablet 00:00: mouth in [place] 00 the Medical morning. Branch aspirin 81 2023-0 Yes [id number] 81mg Take 1 [facility] mg EC 1-08 tablet by [facility] tablet 00:00: mouth in [place] 00 the Medical morning. Branch aspirin 81 2023-0 Yes [id number] 81mg Take 1 [facility] mg EC 1-08 tablet by [facility] tablet 00:00: mouth in [place] 00 the Medical morning. Branch aspirin 81 2023-0 Yes [id number] 81mg Take 1 [facility] mg EC 1-08 tablet by [facility] tablet 00:00: mouth in [place] 00 the Medical morning. Branch aspirin 81 3-0 Yes [id number] 81mg Take 1 [facility] mg EC 1-08 tablet by [facility] tablet 00:00: mouth in [place] 00 the Medical morning. Branch aspirin 81 3-0 Yes [id number] 81mg Take 1 [facility] mg EC 1-08 tablet by [facility] tablet 00:00: mouth in [place] 00 the Medical morning. Branch aspirin 81 2023-0 Yes [id number] 81mg Take 1 [facility] mg EC 1-08 tablet by [facility] tablet 00:00: mouth in [place] 00 the Medical morning. Branch aspirin 81 2023-0 Yes [id number] 81mg Take 1 [facility] mg EC 1-08 tablet by [facility] tablet 00:00: mouth in [place] 00 the Medical morning. Branch aspirin 81 2023-0 Yes [id number] 81mg Take 1 [facility] mg EC 1-08 tablet by [facility] tablet 00:00: mouth in [place] 00 the Medical morning. Branch aspirin 81 2023-0 Yes [id number] 81mg Take 1 [facility] mg EC 1-08 tablet by [facility] tablet 00:00: mouth in [place] 00 the Medical morning. Branch aspirin 81 2023-0 Yes [id number] 81mg Take 1 [facility] mg EC 1-08 tablet by [facility] tablet 00:00: mouth in [place] 00 the Medical morning. Branch aspirin 81 3-0 Yes [id number] 81mg Take 1 [facility] mg EC 1-08 tablet by [facility] tablet 00:00: mouth in [place] 00 the Medical morning. Branch aspirin 81 3-0 Yes [id number] 81mg Take 1 [facility] mg EC 1-08 tablet by [facility] tablet 00:00: mouth in [place] 00 the Medical morning. Branch aspirin 81 2023-0 Yes [id number] 81mg Take 1 [facility] mg EC 1-08 tablet by [facility] tablet 00:00: mouth in [place] 00 the Medical morning. Branch aspirin 81 3-0 Yes [id number] 81mg Take 1 [facility] mg EC 1-08 tablet by [facility] tablet 00:00: mouth in [place] 00 the Medical morning. Branch aspirin 81 2023-0 Yes [id number] 81mg Take 1 [facility] mg EC 1-08 tablet by [facility] tablet 00:00: mouth in [place] 00 the Medical morning. Branch aspirin 81 2022-0 Yes [id number] 81mg Take 1 [facility] mg EC 1-08 tablet by [facility] tablet 00:00: mouth in [place] 00 the Medical morning. Branch aspirin 81 2022-0 Yes [id number] 81mg Take 1 [facility] mg EC 1-08 tablet by [facility] tablet 00:00: mouth in [place] 00 the Medical morning. Branch aspirin 81 3-0 Yes [id number] 81mg Take 1 [facility] mg EC 1-08 tablet by [facility] tablet 00:00: mouth in [place] 00 the Medical morning. Branch aspirin 81 3-0 Yes [id number] 81mg Take 1 [facility] mg EC 1-08 tablet by [facility] tablet 00:00: mouth in [place] 00 the Medical morning. Branch aspirin 81 3-0 Yes [id number] 81mg Take 1 [facility] mg EC 1-08 tablet by ity of tablet 00:00: mouth in [place] 00 the Medical morning. Branch aspirin 81 2023-0 Yes [id number] 81mg Take 1 [facility] mg EC 1-08 tablet by ity of tablet 00:00: mouth in [place] 00 the Medical morning. Branch aspirin 81 2023-0 Yes [id number] 81mg Take 1 [facility] mg EC 1-08 tablet by ity of tablet 00:00: mouth in [place] 00 the Medical morning. Branch aspirin 81 2023-0 Yes [id number] 81mg Take 1 [facility] mg EC 1-08 tablet by ity of tablet 00:00: mouth in [place] 00 the Medical morning. Branch aspirin 81 2022-0 Yes [id number] 81mg Take 1 [facility] mg EC 1-08 tablet by ity of tablet 00:00: mouth in [place] 00 the Medical morning. Branch aspirin 81 2022-0 Yes [id number] 81mg Take 1 [facility] mg EC 1-08 tablet by ity of tablet 00:00: mouth in [place] 00 the Medical morning. Branch KCL 2022-0 2023- No 40meq 40 mEq, [facility] (KLOR-CON -07 - Oral, ity of M20) tablet 15:15: 16:52 ONCE, 1 [place] 40 mEq 00 :00 dose, On Medical 09/08/22 Branch at 0915, Routine bumetanide 2022-0 Yes [id number] 4mg Take 2 [facility] 2 mg tablet 1-07 tablets by it y of 00:00: mouth [place] 00 every Medical morning Branch and evening. isosorbide 2022-0 Yes [id number] 10mg Take 1 [facility] dinitrate 1-07 tablet by ity o f 10 mg 00:00: mouth [place] tablet 00 every 8 Medical (eight) Branch hours. bumetanide 2022-0 Yes [id number] 4mg Take 2 [facility] 2 mg tablet 1-07 tablets by it y of 00:00: mouth [place] 00 every Medical morning Branch and evening. isosorbide 3-0 Yes [id number] 10mg Take 1 [facility] dinitrate 1-07 tablet by ity o f 10 mg 00:00: mouth [place] tablet 00 every 8 Medical (eight) Branch hours. bumetanide 3-0 Yes [id number] 4mg Take 2 [facility] 2 mg tablet 1-07 tablets by it y of 00:00: mouth [place] 00 every Medical morning Branch and evening. isosorbide 3-0 Yes [id number] 10mg Take 1 [facility] dinitrate 1-07 tablet by ity o f 10 mg 00:00: mouth [place] tablet 00 every 8 Medical (eight) Branch hours. bumetanide 3-0 Yes [id number] 4mg Take 2 [facility] 2 mg tablet 1-07 tablets by it y of 00:00: mouth [place] 00 every Medical morning Branch and evening. isosorbide 2023-0 Yes [id number] 10mg Take 1 [facility] dinitrate 1-07 tablet by ity o f 10 mg 00:00: mouth [place] tablet 00 every 8 Medical (eight) Branch hours. bumetanide 2023-0 Yes [id number] 4mg Take 2 [facility] 2 mg tablet 1-07 tablets by it y of 00:00: mouth [place] 00 every Medical morning Branch and evening. isosorbide 2023-0 Yes [id number] 10mg Take 1 [facility] dinitrate 1-07 tablet by ity o f 10 mg 00:00: mouth [place] tablet 00 every 8 Medical (eight) Branch hours. bumetanide 2023-0 Yes [id number] 4mg Take 2 [facility] 2 mg tablet 1-07 tablets by it y of 00:00: mouth [place] 00 every Medical morning Branch and evening. bumetanide 2023-0 Yes [id number] 4mg Take 2 [facility] 2 mg tablet 1-07 tablets by it y of 00:00: mouth [place] 00 every Medical morning Branch and evening. bumetanide 2023-0 Yes [id number] 4mg Take 2 [facility] 2 mg tablet 1-07 tablets by it y of 00:00: mouth [place] 00 every Medical morning Branch and evening. bumetanide 2023-0 Yes [id number] 4mg Take 2 [facility] 2 mg tablet 1-07 tablets by it y of 00:00: mouth [place] 00 every Medical morning Branch and evening. bumetanide 2023-0 Yes [id number] 4mg Take 2 [facility] 2 mg tablet 1-07 tablets by it y of 00:00: mouth [place] 00 every Medical morning Branch and evening. bumetanide 2023-0 Yes [id number] 4mg Take 2 [facility] 2 mg tablet 1-07 tablets by it y of 00:00: mouth [place] 00 every Medical morning Branch and evening. bumetanide 2023-0 Yes [id number] 4mg Take 2 [facility] 2 mg tablet 1-07 tablets by it y of 00:00: mouth [place] 00 every Medical morning Branch and evening. bumetanide 2023-0 Yes [id number] 4mg Take 2 [facility] 2 mg tablet 1-07 tablets by it y of 00:00: mouth [place] 00 every Medical morning Branch and evening. bumetanide 2023-0 Yes [id number] 4mg Take 2 [facility] 2 mg tablet 1-07 tablets by it y of 00:00: mouth [place] 00 every Medical morning Branch and evening. bumetanide 2023-0 Yes [id number] 4mg Take 2 [facility] 2 mg tablet 1-07 tablets by it y of 00:00: mouth [place] 00 every Medical morning Branch and evening. bumetanide 2023-0 Yes [id number] 4mg Take 2 [facility] 2 mg tablet 1-07 tablets by it y of 00:00: mouth [place] 00 every Medical morning Branch and evening. bumetanide 3-0 Yes [id number] 4mg Take 2 [facility] 2 mg tablet 1-07 tablets by it y of 00:00: mouth [place] 00 every Medical morning Branch and evening. bumetanide 3-0 Yes [id number] 4mg Take 2 [facility] 2 mg tablet 1-07 tablets by it y of 00:00: mouth [place] 00 every Medical morning Branch and evening. bumetanide 3-0 Yes [id number] 4mg Take 2 [facility] 2 mg tablet 1-07 tablets by it y of 00:00: mouth [place] 00 every Medical morning Branch and evening. bumetanide 3-0 Yes [id number] 4mg Take 2 [facility] 2 mg tablet 1-07 tablets by it y of 00:00: mouth [place] 00 every Medical morning Branch and evening. bumetanide 3-0 Yes [id number] 4mg Take 2 [facility] 2 mg tablet 1-07 tablets by it y of 00:00: mouth [place] 00 every Medical morning Branch and evening. bumetanide 3-0 Yes [id number] 4mg Take 2 [facility] 2 mg tablet 1-07 tablets by it y of 00:00: mouth [place] 00 every Medical morning Branch and evening. bumetanide 3-0 Yes [id number] 4mg Take 2 [facility] 2 mg tablet 1-07 tablets by it y of 00:00: mouth [place] 00 every Medical morning Branch and evening. bumetanide 2023-0 Yes [id number] 4mg Take 2 [facility] 2 mg tablet 1-07 tablets by it y of 00:00: mouth [place] 00 every Medical morning Branch and evening. bumetanide 2023-0 Yes [id number] 4mg Take 2 [facility] 2 mg tablet 1-07 tablets by it y of 00:00: mouth [place] 00 every Medical morning Branch and evening. bumetanide 2023-0 Yes [id number] 4mg Take 2 [facility] 2 mg tablet 1-07 tablets by it y of 00:00: mouth [place] 00 every Medical morning Branch and evening. bumetanide 3-0 Yes [id number] 4mg Take 2 [facility] 2 mg tablet 1-07 tablets by it y of 00:00: mouth [place] 00 every Medical morning Branch and evening. bumetanide 3-0 Yes [id number] 4mg Take 2 [facility] 2 mg tablet 1-07 tablets by it y of 00:00: mouth [place] 00 every Medical morning Branch and evening. bumetanide 3-0 Yes [id number] 4mg Take 2 [facility] 2 mg tablet 1-07 tablets by it y of 00:00: mouth [place] 00 every Medical morning Branch and evening. bumetanide 2022-0 Yes [id number] 4mg Take 2 [facility] 2 mg tablet 1-07 tablets by it y of 00:00: mouth [place] 00 every Medical morning Branch and evening. bumetanide 2022-0 Yes [id number] 4mg Take 2 [facility] 2 mg tablet 1-07 tablets by it y of 00:00: mouth [place] 00 every Medical morning Branch and evening. bumetanide 2022-0 Yes [id number] 4mg Take 2 [facility] 2 mg tablet 1-07 tablets by it y of 00:00: mouth [place] 00 every Medical morning Branch and evening. bumetanide 2022-0 Yes [id number] 4mg Take 2 [facility] 2 mg tablet 1-07 tablets by it y of 00:00: mouth [place] 00 every Medical morning Branch and evening. bumetanide 2022-0 Yes [id number] 4mg Take 2 [facility] 2 mg tablet 1-07 tablets by it y of 00:00: mouth [place] 00 every Medical morning Branch and evening. bumetanide 3-0 Yes [id number] 4mg Take 2 [facility] 2 mg tablet 1-07 tablets by it y of 00:00: mouth [place] 00 every Medical morning Branch and evening. bumetanide 3-0 Yes [id number] 4mg Take 2 [facility] 2 mg tablet 1-07 tablets by it y of 00:00: mouth [place] 00 every Medical morning Branch and evening. bumetanide 3-0 Yes [id number] 4mg Take 2 [facility] 2 mg tablet 1-07 tablets by it y of 00:00: mouth [place] 00 every Medical morning Branch and evening. bumetanide 2023-0 Yes [id number] 4mg Take 2 [facility] 2 mg tablet 1-07 tablets by it y of 00:00: mouth [place] 00 every Medical morning Branch and evening. bumetanide 3-0 Yes [id number] 4mg Take 2 [facility] 2 mg tablet 1-07 tablets by it y of 00:00: mouth [place] 00 every Medical morning Branch and evening. bumetanide 3-0 Yes [id number] 4mg Take 2 [facility] 2 mg tablet 1-07 tablets by it y of 00:00: mouth [place] 00 every Medical morning Branch and evening. bumetanide 3-0 Yes [id number] 4mg Take 2 [facility] 2 mg tablet 1-07 tablets by it y of 00:00: mouth [place] 00 every Medical morning Branch and evening. bumetanide 3-0 Yes [id number] 4mg Take 2 [facility] 2 mg tablet 1-07 tablets by it y of 00:00: mouth [place] 00 every Medical morning Branch and evening. bumetanide 3-0 Yes [id number] 4mg Take 2 [facility] 2 mg tablet 1-07 tablets by it y of 00:00: mouth [place] 00 every Medical morning Branch and evening. bumetanide 2022-0 Yes [id number] 4mg Take 2 [facility] 2 mg tablet 1-07 tablets by it y of 00:00: mouth [place] 00 every Medical morning Branch and evening. bumetanide 3-0 Yes [id number] 4mg Take 2 [facility] 2 mg tablet 1-07 tablets by it y of 00:00: mouth [place] 00 every Medical morning Branch and evening. bumetanide 3-0 Yes [id number] 4mg Take 2 [facility] 2 mg tablet 1-07 tablets by it y of 00:00: mouth [place] 00 every Medical morning Branch and evening. bumetanide 3-0 Yes [id number] 4mg Take 2 [facility] 2 mg tablet 1-07 tablets by it y of 00:00: mouth [place] 00 every Medical morning Branch and evening. bumetanide 3-0 Yes [id number] 4mg Take 2 [facility] 2 mg tablet 1-07 tablets by it y of 00:00: mouth [place] 00 every Medical morning Branch and evening. bumetanide 3-0 Yes [id number] 4mg Take 2 [facility] 2 mg tablet 1-07 tablets by it y of 00:00: mouth [place] 00 every Medical morning Branch and evening. bumetanide 3-0 Yes [id number] 4mg Take 2 [facility] 2 mg tablet 1-07 tablets by it y of 00:00: mouth [place] 00 every Medical morning Branch and evening. bumetanide 3-0 Yes [id number] 4mg Take 2 [facility] 2 mg tablet 1-07 tablets by it y of 00:00: mouth [place] 00 every Medical morning Branch and evening. bumetanide 3-0 Yes [id number] 4mg Take 2 [facility] 2 mg tablet 1-07 tablets by it y of 00:00: mouth [place] 00 every Medical morning Branch and evening. bumetanide 3-0 Yes [id number] 4mg Take 2 [facility] 2 mg tablet 1-07 tablets by it y of 00:00: mouth [place] 00 every Medical morning Branch and evening. isosorbide 2022-0 Yes [id number] 10mg Take 1 [facility] dinitrate 1-07 tablet by ity o f 10 mg 00:00: mouth [place] tablet 00 every 8 Medical (eight) Branch hours. isosorbide 2022-0 2023- No [id number] 10mg Take 1 [facility] dinitrate 1-07 01-20 tablet by ity of 10 mg 00:00: 00:00 mouth [place] tablet 00 :00 every 8 Medical (eight) Branch hours. isosorbide 2022-0 2023- No [id number] 10mg Take 1 [facility] dinitrate 1-07 01-20 tablet by ity of 10 mg 00:00: 00:00 mouth [place] tablet 00 :00 every 8 Medical (eight) Branch hours. bumetanide 2022-0 Yes 4mg 4 mg, Univer s (BUMEX) 09-07 Oral, ity of tablet 4 mg 23:00: QAM+PM, [place] 00 First dose Medical on Fri Branch 09/07/22 at 1700, Until Discontinu ed, Routine furosemide 2022-0 3- No 40mg 40 mg, Univ ers (LASIX) 09-07- Slow IV ity of injection 02:00: 19:30 Push, [place] 40 mg 00 :50 Q12H, Medical First dose Branch on Shahnaz 09/06/22 at 2000, Until Discontinu ed, Routine hydrALAZINE 2023-0 Yes 25mg 25 mg, Univ ers (APRESOLINE 1-05 Oral, Q8H, it y of ) tablet 25 20:00: First dose [place] mg 00 (after Medical last Branch modificati on) on Sat09/06/22 at 1400, Until Discontinu ed, Routine isosorbide 2023-0 Yes 10mg 10 mg, Unive rs dinitrate 1-05 Oral, Q8H, ity of (ISORDIL) 15:30: First dose [place] tablet 10 00 on Shahn[facility] Medical mg 09/06/22 at Branch 0930, Until Discontinu ed, Routine furosemide 2023-0 2023- No 40mg 40 mg, Univ ers (LASIX) 09-06-05 Slow IV ity of injection 15:05: 15:11 Push, [place] 40 mg 00 :00 ONCE, 1 Medical dose, On Branch Sat09/06/22 at 0915, Routine furosemide 2023-0 2023- No 40mg 40 mg, Univ ers (LASIX) 09-05- Slow IV ity of injection 20:00: 20:48 Push, [place] 40 mg 00 :00 ONCE, 1 Medical dose, On Branch Sat09/05/22 at 1400, Routine atorvastati 2023-0 Yes 40mg 40 mg, Univ ers n (LIPITOR) 1-04 Oral, QHS, it y of tablet 40 03:00: First dose [place] mg 00 (after Medical last Branch modificati on) on Sat09/04/22 at 2100, Until Discontinu ed, Routine atorvastati 2023-0 Yes 40mg 40 mg, Univ ers n (LIPITOR) 1-04 Oral, QHS, it y of tablet 40 03:00: First dose [place] mg 00 (after Medical last Branch modificati on) on Sat09/04/22 at 2100, Until Discontinu ed, Routine aspirin 2023-0 Yes 325mg 325 mg, Univer s tablet 325 1-03 Oral, ity of mg 20:36: PRE-PROCED [place] 15 URE ONCE, Medical 1 dose, Branch Starting on Sat09/04/22 at 1436, Until Discontinu ed, Routine, Surgery/Pr ocedure, CV Preprocedu re aspirin 2023-0 Yes 325mg 325 mg, Univer s tablet 325 1-03 Oral, ity of mg 20:36: PRE-PROCED [place] 15 URE ONCE, Medical 1 dose, Branch Starting on e 09/04/22 at 1436, Until Discontinu ed, Routine, Surgery/Pr ocedure, CV Preprocedu re iodixanol 2022- No ONCE INTRA U nivers (VISIPAQUE 09-04 PROCEDURE, it y of 320-100 mL) 20:14: 20:26 Starting [place] injection 11 :27 on Sat Medical 09/04/22 at Branch 1414, Until 09/04/22 at 1426, Routine, CV Intraproce dure heparin 2022- No ONCE INTRA Uni vers 1,000 09-04 PROCEDURE, ity of unit/mL 19:19: 20:26 Starting [place] injection 34 :27 on Sat Medical 09/04/22 at Branch 1319, Until 09/04/22 at 1426, Routine, CV Intraproce dure lidocaine 2022- No ONCE INTRA U nivers 1% (PF) 09-04 PROCEDURE, ity o f (XYLOCAINE) 18:17: 20:26 Starting [place] injection 31 :27 on Medical 09/04/22 at Branch 1217, Until 09/04/22 at 1426, Routine, CV Intraproce dure midazolam 2022- No ONCE INTRA U nivers (VERSED) 09-04 PROCEDURE, ity of injection 18:07: 20:26 Starting [place] 28 :27 on Sat Medical 09/04/22 at Branch 1207, Until 09/04/22 at 1426, Routine, CV Intraproce dure FENTanyl PF 2022- No ONCE INTRA Univers (SUBLIMAZE 09-04 PROCEDURE, it y of (PF)) 18:07: 20:26 Starting [place] injection 19 :27 on Sat Medical 09/04/22 at Branch 1207, Until 09/04/22 at 1426, Routine, CV Intraproce dure KCL 2022- No 20meq 20 mEq, [facility] (KLOR-CON 09-04 Oral, ity of M20) tablet 13:07: 14:08 ONCE, 1 [place] 20 mEq 00 :00 dose, On Medical Sat09/04/22 Branch at 0715, Routine heparin 2022-0 Yes 5000U 5,000 [facility] (porcine) 1-02 Units, ity of injection 14:00: Subcutaneo [place] 5,000 Units 00 us, Q12H, Med ical First dose Branch on Sat09/03/22 at 0800, Until Discontinu ed, Routine heparin 2022-0 Yes 5000U 5,000 [facility] (porcine) 1-02 Units, ity of injection 14:00: Subcutaneo [place] 5,000 Units 00 us, Q12H, Med ical First dose Branch on Sat09/03/22 at 0800, Until Discontinu ed, Routine magnesium 2022-0 2022- No 2g 2 g, IV Univ ers sulfate in 09-03 Piggyback, it y of water 2 12:00: 12:50 Administer [place] gram/50 mL 00 :00 over 60 Medica l (4 %) Minutes, Branch infusion 2 ONCE, 1 g dose, On Sat09/03/22 at 0600, Routine KCL 2022-0 2022- No 20meq 20 mEq, [facility] (KLOR-CON 09-03 Oral, ity of M20) tablet 12:00: 11:52 ONCE, 1 [place] 20 mEq 00 :00 dose, On [facility] Sat09/03/22 Branch at 0600, Routine Sliding 2022-0 [facility]-02 us, TID ity of Insulin - 03:00: MEALS+HS, [place] Lispro 00 First dose Medical (HumaLOG) + on [facility] 09/02/22 at Testing 2100, Until Discontinu ed, Routine Sliding 0 Yes [facility] [place] [facility] Scale 1-02 us, TID ity of Insulin - 03:00: MEALS+HS, [place] Lispro 00 First dose Medical (HumaLOG) + on [facility] 09/02/22 at Testing 2100, Until Discontinu ed, Routine acetaminoph 0 Yes 650mg 650 mg, Un pedro en 09-03 Oral, ity of (TYLENOL) 00:30: Q6HPRN, [place] tablet 650 01 Starting Medic al mg on [facility] 09/02/22 at 1830, Until Discontinu ed, Routine, Pain (scale 1-3) acetaminoph Yes 650mg 650 mg, Un pedro en 09-03 Oral, ity of (TYLENOL) 00:30: Q6HPRN, [place] tablet 650 01 Starting Medic al mg on [facility] 09/02/22 at 1830, Until Discontinu ed, Routine, Pain (scale 1-3) magnesium 2021-09 No 2g 2 g, IV Univ ers sulfate in 09-01 Piggyback, it y of water 2 16:00: 16:47 Administer [place] gram/50 mL 00 :00 over 60 Medica l (4 %) Minutes, Branch infusion 2 ONCE, 1 g dose, On [facility] 09/01/22 at 1000, Routine KCL 2021-09 No 40meq 40 mEq, Univers (KLOR-CON 09-01 Oral, ity of M20) tablet 16:00: 15:47 ONCE, 1 [place] 40 mEq 00 :00 dose, On Medical [facility] 09/01/22 at 1000, Routine aspirin EC 2021-09 Yes 81mg 81 mg, Unive rs tablet 81 31 Oral, ity of mg 15:00: DAILY, 00 First dose Medical on [facility] 09/01/22 at 0900, Until Discontinu ed, Routine aspirin EC 2021-09 Yes 81mg 81 mg, Unive rs tablet 81 31 Oral, ity of mg 15:00: DAILY, 00 First dose Medical on [facility] 09/01/22 at 0900, Until Discontinu ed, Routine atorvastati 2021-09 No 40mg 40 mg, Uni vers n (LIPITOR) 03 Oral, ity of tablet 40 15:00: 14:18 DAILY, [place] mg 00 :09 First dose Medical on [facility] 09/01/22 at 0900, Until Discontinu ed, Routine furosemide 2021-09 Yes 40mg 40 mg, Unive rs (LASIX) Slow IV ity of injection 02:00: Push, [place] 40 mg 00 Q12H, Medical First dose Branch on Sat08/31/22 at 2000, Until Discontinu ed, Routine furosemide 2022-1 2023- No 40mg 40 mg, Univ ers (LASIX) 2-05 Slow IV ity of injection 02:00: 15:05 Push, [place] 40 mg 00 :42 Q12H, Medical First dose Branch on Sat08/31/22 at 2000, Until Discontinu ed, Routine sulfur 2021-09- No [id number] 5mL 5 mL, Univ ers hexafluorid 08-31 Intravenou i ty of e microsphr 21:45: 21:45 s, ONCE, 1 [place] (LUMASON) 00 :00 dose, On Medica l injection 5 Sat Branch mL 08/31/22 at 1545, Routine
membership director approving Restricted medication : NOEL MORELAND hydrALAZINE 2021-09 Yes 25mg 25 mg, Univ ers (APRESOLINE 2-30 Oral, TID, it y of ) tablet 25 20:00: First dose [place] mg 00 on Sat Medical 08/31/22 Branch at 1400, Until Discontinu ed, Routine hydrALAZINE 2021-09- No 25mg 25 mg, Uni vers (APRESOLINE 05 Oral, TID, i ty of ) tablet 25 20:00: 15:23 First dose [place] mg 00 :35 on Sat Medical 08/31/22 Branch at 1400, Until Discontinu ed, Routine heparin 2021-09- No 5000U 5,000 [facility] (porcine) 02 Units, ity of injection 20:00: 00:32 Subcutaneo [place] 5,000 Units 00 :34 us, Q8H, Medi joseph First dose Branch on Sat08/31/22 at 1400, Until Discontinu ed, Routine Sliding 2021-09- No Subcutaneo Uni vers Scale 02 us, TID ity of Insulin - 18:00: 00:32 MEALS+HS, [place] Lispro 00 :34 First dose Medical (HumaLOG) + on Sat Branch Fsbg 08/31/22 Testing at 1200, Until Discontinu ed, Routine metoprolol 2021-09 Yes 25mg 25 mg, Unive rs succinate 2-30 Oral, ity of XL (TOPROL 17:30: DAILY, [place] XL) tablet 00 First dose Med ical 25 mg on Fri Branch 08/31/22 at 1130, Until Discontinu ed, Routine metoprolol 2021-09 Yes 25mg 25 mg, Unive rs succinate 2-30 Oral, ity of XL (TOPROL 17:30: DAILY, [place] XL) tablet 00 First dose Med ical 25 mg on Sat Branch 08/31/22 at 1130, Until Discontinu ed, Routine glucagon 2021-09 Yes 1mg 1 mg, Univers (GLUCAGEN 2-30 Intramuscu ity of DIAGNOSTIC 17:13: lar, PRN, [place] KIT) 11 Starting Medical injection 1 on Sat Branch mg 08/31/22 at 1113, Until Discontinu ed, JOSE, Blood Glucose < or = 70 mg/dL and patient is unable to swallow or has mental changes. dextrose 50 2021-09 Yes 25mL 25 mL, Univ ers % in water 2-30 Slow IV ity of (D50W) 17:13: Push, PRN, [place] injection 11 Starting Medica l 25 mL on Sat Branch 08/31/22 at 1113, Until Discontinu ed, JOSE, Blood Glucose < or = 70 mg/dL and patient is unable to swallow or has mental status changes. glucagon 2021-09 Yes 1mg 1 mg, Univers (GLUCAGEN 2-30 Intramuscu ity of DIAGNOSTIC 17:13: lar, PRN, [place] KIT) 11 Starting Medical injection 1 on Sat Branch mg 08/31/22 at 1113, Until Discontinu ed, JOSE, Blood Glucose < or = 70 mg/dL and patient is unable to swallow or has mental changes. dextrose 50 2021-09 Yes 25mL 25 mL, Univ ers % in water 2-30 Slow IV ity of (D50W) 17:13: Push, PRN, [place] injection 11 Starting Medica l 25 mL on Sat Branch 08/31/22 at 1113, Until Discontinu ed, JOSE, Blood Glucose < or = 70 mg/dL and patient is unable to swallow or has mental status changes. furosemide 2021-09 No 80mg 80 mg, IV U nivers (LASIX) 2-30 12-30 Push, ity of injection 12:45: 12:46 ONCE, 1 [place] 80 mg 00 :00 dose, On Medical Fri Branch 08/31/22 at 0645, JOSE metFORMIN 2021-09- No 500mg Take 500 Un pedro 500 mg 2-30 12-30 mg by ity of tablet 11:16: 00:00 mouth in [place] 10 :00 the Medical morning Branch and 500 mg in the evening. Take with meals. metFORMIN 2021-09- No 500mg Take 500 Un pedro 500 mg 2-30 12-30 mg by ity of tablet 11:16: 00:00 mouth in [place] 10 :00 the Medical morning Branch and 500 mg in the evening. Take with meals. doxycycline 2021-09 Yes [id number] 100mg Take 1 [facility] hyclate 100 1-04 capsule by it y of mg capsule 00:00: mouth [place] 00 every 12 Medical (twelve) Branch hours. predniSONE 2021-09 Yes [id number] 40mg Take 2 U nivers 20 mg 1-04 tablets by ity of tablet 00:00: mouth in [place] 00 the Medical morning. Branch doxycycline 2021-09 Yes [id number] 100mg Take 1 [facility] hyclate 100 1-04 capsule by it y of mg capsule 00:00: mouth [place] 00 every 12 Medical (twelve) Branch hours. predniSONE 2021-09 Yes [id number] 40mg Take 2 U nivers 20 mg 1-04 tablets by ity of tablet 00:00: mouth in [place] 00 the Medical morning. Branch doxycycline 2021-09- No [id number] 100mg Take 1 [facility] hyclate 100 1-04 12-30 capsule by i ty of mg capsule 00:00: 00:00 mouth [place] 00 :00 every 12 Medical (twelve) Branch hours. predniSONE 2021-09- No [id number] 40mg Take 2 [facility] 20 mg 1-04 12-30 tablets by ity of tablet 00:00: 00:00 mouth in [place] 00 :00 the Medical morning. Branch doxycycline 2021-09- No [id number] 100mg Take 1 [facility] hyclate 100 1-04 12-30 capsule by i ty of mg capsule 00:00: 00:00 mouth [place] 00 :00 every 12 Medical (twelve) Branch hours. predniSONE 2021-09- No [id number] 40mg Take 2 [facility] 20 mg 1-04 12-30 tablets by ity of tablet 00:00: 00:00 mouth in [place] 00 :00 the Medical morning. Branch hydrALAZINE 2021-09 Yes [id number] 25mg Take 1 [facility] 25 mg 0-04 tablet by ity of tablet 00:00: mouth in [place] 00 the Medical morning Branch and 1 tablet at noon and 1 tablet in the evening. atorvastati 2021-09 Yes [id number] 40mg Take 1 Univers n 40 mg 0-04 tablet by ity of tablet 00:00: mouth in [place] the Medical morning. Branch metoprolol 2021-09 Yes [id number] 25mg Take 1 U nivers succinate 0-04 tablet by ity o f XL 25 mg 24 00:00: mouth in [place] hr tablet 00 the Medical morning. Branch hydrALAZINE 2021-09 Yes [id number] 25mg Take 1 [facility] 25 mg 0-04 tablet by ity of tablet 00:00: mouth in [place] the Medical morning Branch and 1 tablet at noon and 1 tablet in the evening. atorvastati 2021-09 Yes [id number] 40mg Take 1 Univers n 40 mg 0-04 tablet by ity of tablet 00:00: mouth in [place] the Medical morning. Branch metoprolol 2021-09 Yes [id number] 25mg Take 1 U nivers succinate 0-04 tablet by ity o f XL 25 mg 24 00:00: mouth in [place] hr tablet the Medical morning. Branch hydrALAZINE 2021-09 Yes [id number] 25mg Take 1 [facility] 25 mg 0-04 tablet by ity of tablet 00:00: mouth in [place] the Medical morning Branch and 1 tablet at noon and 1 tablet in the evening. atorvastati 2021-09 Yes [id number] 40mg Take 1 Univers n 40 mg 0-04 tablet by ity of tablet 00:00: mouth in [place] the Medical morning. Branch metoprolol 2021-09 Yes [id number] 25mg Take 1 U nivers succinate 0-04 tablet by ity o f XL 25 mg 24 00:00: mouth in [place] hr tablet the Medical morning. Branch hydrALAZINE 2021-09 Yes [id number] 25mg Take 1 [facility] 25 mg 0-04 tablet by ity of tablet 00:00: mouth in [place] the Medical morning Branch and 1 tablet at noon and 1 tablet in the evening. atorvastati 2021-09 Yes [id number] 40mg Take 1 Univers n 40 mg 0-04 tablet by ity of tablet 00:00: mouth in [place] 00 the Medical morning. Branch metoprolol 2021-09 Yes [id number] 25mg Take 1 U nivers succinate 0-04 tablet by ity o f XL 25 mg 24 00:00: mouth in [place] hr tablet 00 the Medical morning. Branch hydrALAZINE 2021-09 Yes [id number] 25mg Take 1 [facility] 25 mg 0-04 tablet by ity of tablet 00:00: mouth in [place] 00 the Medical morning Branch and 1 tablet at noon and 1 tablet in the evening. atorvastati 2021-09 Yes [id number] 40mg Take 1 Univers n 40 mg 0-04 tablet by ity of tablet 00:00: mouth in [place] the Medical morning. Branch metoprolol 2021-09 Yes [id number] 25mg Take 1 U nivers succinate 0-04 tablet by ity o f XL 25 mg 24 00:00: mouth in [place] hr tablet 00 the Medical morning. Branch atorvastati 2021-09 Yes [id number] 40mg Take 1 Univers n 40 mg 0-04 tablet by ity of tablet 00:00: mouth in [place] the Medical morning. Branch atorvastati 2021-09 Yes [id number] 40mg Take 1 [facility] 40 mg [facility]-04 tablet by [facility] tablet 00:00: mouth in [place] the Medical morning. Branch atorvastati 2021-09 Yes [id number] 40mg Take 1 [facility] 40 mg 0-04 tablet by [facility] tablet 00:00: mouth in [place] the Medical morning. Branch atorvastati 2021-09 Yes [id number] 40mg Take 1 [facility] n 40 mg 0-04 tablet by [facility] tablet 00:00: mouth in [place] 00 the Medical morning. Branch atorvastati 2021-09 Yes [id number] 40mg Take 1 [facility] n 40 mg 0-04 tablet by [facility] of tablet 00:00: mouth in [place] 00 the Medical morning. Branch atorvastati 2021-09 Yes [id number] 40mg Take 1 [facility] n 40 mg 0-04 tablet by [facility] tablet 00:00: mouth in [place] 00 the Medical morning. Branch atorvastati 2021-09 Yes [id number] 40mg Take 1 [facility] n 40 mg 0-04 tablet by [facility] tablet 00:00: mouth in [place] 00 the Medical morning. Branch atorvastati 2021-09 Yes [id number] 40mg Take 1 [facility] n 40 mg 0-04 tablet by [facility] of tablet 00:00: mouth in [place] the Medical morning. Branch atorvastati 2021-09 Yes [id number] 40mg Take 1 [facility] n 40 mg 0-04 tablet by [facility] tablet 00:00: mouth in [place] 00 the Medical morning. Branch atorvastati 2021-09 Yes [id number] 40mg Take 1 [facility] n 40 mg 0-04 tablet by [facility] tablet 00:00: mouth in [place] 00 the Medical morning. Branch atorvastati 2021-09 Yes [id number] 40mg Take 1 [facility] n 40 mg 0-04 tablet by [facility] tablet 00:00: mouth in [place] 00 the Medical morning. Branch atorvastati 2021-09 Yes [id number] 40mg Take 1 [facility] n 40 mg 0-04 tablet by [facility] tablet 00:00: mouth in [place] the Medical morning. Branch atorvastati 2021-09 Yes [id number] 40mg Take 1 [facility] n 40 mg 0-04 tablet by [facility] tablet 00:00: mouth in [place] the Medical morning. Branch atorvastati 2021-09 Yes [id number] 40mg Take 1 [facility] n 40 mg 0-04 tablet by [facility] tablet 00:00: mouth in [place] the Medical morning. Branch atorvastati 2021-09 Yes [id number] 40mg Take 1 [facility] n 40 mg 0-04 tablet by [facility] tablet 00:00: mouth in [place] the Medical morning. Branch atorvastati 2021-09 Yes [id number] 40mg Take 1 [facility] n 40 mg 0-04 tablet by [facility] tablet 00:00: mouth in [place] 00 the Medical morning. Branch atorvastati 2021-09 Yes [id number] 40mg Take 1 [facility] 40 mg 0-04 tablet by [facility] tablet 00:00: mouth in [place] 00 the Medical morning. Branch atorvastati 2021-09 Yes [id number] 40mg Take 1 [facility] n 40 mg 0-04 tablet by [facility] tablet 00:00: mouth in [place] 00 the Medical morning. Branch atorvastati 2021-09 Yes [id number] 40mg Take 1 [facility] 40 mg 0-04 tablet by [facility] tablet 00:00: mouth in [place] the Medical morning. Branch atorvastati 2021-09 Yes [id number] 40mg Take 1 [facility] n 40 mg 0-04 tablet by [facility] tablet 00:00: mouth in [place] the Medical morning. Branch atorvastati 2021-09 Yes [id number] 40mg Take 1 [facility] n 40 mg 0-04 tablet by [facility] of tablet 00:00: mouth in [place] the Medical morning. Branch atorvastati 2021-09 Yes [id number] 40mg Take 1 [facility] n 40 mg 0-04 tablet by [facility] tablet 00:00: mouth in [place] the Medical morning. Branch furosemide 2021-09 Yes [id number] 40mg Take 1 [facility] 40 mg 0-04 tablet by [facility] tablet 00:00: mouth in [place] the Medical morning. Branch hydrALAZINE 2021-09 Yes [id number] 25mg Take 1 [facility] 25 mg 0-04 tablet by [facility] of tablet 00:00: mouth in [place] the Medical morning Branch and 1 tablet at noon and 1 tablet in the evening. aspirin 81 2021-09 Yes [id number] 81mg Take 1 [facility] mg EC 0-04 tablet by [facility] of tablet 00:00: mouth in [place] the Medical morning. Branch atorvastati 2021-09 Yes [id number] 40mg Take 1 [facility] n 40 mg 0-04 tablet by [facility] of tablet 00:00: mouth in [place] the Medical morning. Branch metoprolol 2021-09 Yes [id number] 25mg Take 1 [facility] succinate 0-04 tablet by [facility] o f XL 25 mg 24 00:00: mouth in [place] hr tablet 00 the Medical morning. Branch furosemide 2021-09 Yes [id number] 40mg Take 1 [facility] 40 mg 0-04 tablet by [facility] tablet 00:00: mouth in [place] the Medical morning. Branch hydrALAZINE 2021-09 Yes [id number] 25mg Take 1 [facility] 25 mg 0-04 tablet by [facility] of tablet 00:00: mouth in [place] the Medical morning Branch and 1 tablet at noon and 1 tablet in the evening. aspirin 81 2021-09 Yes [id number] 81mg Take 1 [facility] mg EC 0-04 tablet by [facility] of tablet 00:00: mouth in [place] the Medical morning. Branch atorvastati 2021-09 Yes [id number] 40mg Take 1 [facility] 40 mg 0-04 tablet by [facility] of tablet 00:00: mouth in [place] the Medical morning. Branch metoprolol 2021-09 Yes [id number] 25mg Take 1 [facility] succinate 0-04 tablet by [facility] o f XL 25 mg 24 00:00: mouth in [place] hr tablet 00 the Medical morning. Branch furosemide 2021-09 Yes [id number] 40mg Take 1 [facility] 40 mg 0-04 tablet by [facility] tablet 00:00: mouth in [place] the Medical morning. Branch hydrALAZINE 2021-09 Yes [id number] 25mg Take 1 [facility] 25 mg 0-04 tablet by [facility] of tablet 00:00: mouth in [place] the Medical morning Branch and 1 tablet at noon and 1 tablet in the evening. aspirin 81 2021-09 Yes [id number] 81mg Take 1 [facility] mg EC 0-04 tablet by [facility] of tablet 00:00: mouth in [place] the Medical morning. Branch atorvastati 2021-09 Yes [id number] 40mg Take 1 [facility] n 40 mg 0-04 tablet by [facility] of tablet 00:00: mouth in [place] the Medical morning. Branch metoprolol 2021-09 Yes [id number] 25mg Take 1 [facility] succinate 0-04 tablet by it[facility] o f XL 25 mg 24 00:00: mouth in [place] hr tablet the Medical morning. Branch furosemide 2021-09 Yes [id number] 40mg Take 1 [facility] 40 mg 0-04 tablet by [facility] tablet 00:00: mouth in [place] the Medical morning. Branch hydrALAZINE 2021-09 Yes [id number] 25mg Take 1 [facility] 25 mg 0-04 tablet by [facility] of tablet 00:00: mouth in [place] the Medical morning Branch and 1 tablet at noon and 1 tablet in the evening. aspirin 81 2021-09 Yes [id number] 81mg Take 1 [facility] mg EC 0-04 tablet by [facility] tablet 00:00: mouth in [place] the Medical morning. Branch atorvastati 2021-09 Yes [id number] 40mg Take 1 [facility] 40 mg 0-04 tablet by [facility] tablet 00:00: mouth in [place] 00 the Medical morning. Branch metoprolol 2021-09 Yes [id number] 25mg Take 1 [facility] succinate 0-04 tablet by [facility] o f XL 25 mg 24 00:00: mouth in [place] hr tablet 00 the Medical morning. Branch furosemide 2021-09 Yes [id number] 40mg Take 1 [facility] 40 mg 0-04 tablet by [facility] tablet 00:00: mouth in [place] 00 the Medical morning. Branch hydrALAZINE 2021-09 Yes [id number] 25mg Take 1 [facility] 25 mg 0-04 tablet by [facility] tablet 00:00: mouth in [place] 00 the Medical morning Branch and 1 tablet at noon and 1 tablet in the evening. atorvastati 2021-09 Yes [id number] 40mg Take 1 [facility] n 40 mg 0-04 tablet by [facility] of tablet 00:00: mouth in [place] 00 the Medical morning. Branch metoprolol 2021-09 Yes [id number] 25mg Take 1 [facility] n[facility] succinate 0-04 tablet by [facility] o f XL 25 mg 24 00:00: mouth in [place] hr tablet 00 the Medical morning. Branch hydrALAZINE 2021-09 Yes [id number] 25mg Take 1 [facility] 25 mg 0-04 tablet by [facility] tablet 00:00: mouth in [place] the Medical morning Branch and 1 tablet at noon and 1 tablet in the evening. atorvastati 2021-09 Yes [id number] 40mg Take 1 [facility] n 40 mg 0-04 tablet by [facility] tablet 00:00: mouth in [place] 00 the Medical morning. Branch metoprolol 2021-09 Yes [id number] 25mg Take 1 [facility] n[facility] succinate 0-04 tablet by [facility] o f XL 25 mg 24 00:00: mouth in [place] hr tablet 00 the Medical morning. Branch atorvastati 2021-09- No [id number] 40mg Take 1 [facility] n 40 mg 0-04 04-27 tablet by [facility] tablet 00:00: 00:00 mouth in [place] 00 :00 the Medical morning. Branch atorvastati 2021-09- No [id number] 40mg Take 1 [facility] n 40 mg 0-04 -27 tablet by [facility] of tablet 00:00: 00:00 mouth in [place] 00 :00 the Medical morning. Branch hydrALAZINE 2021-09- No [id number] 25mg Take 1 [facility] 25 mg 0-04 -20 tablet by [facility] tablet 00:00: 00:00 mouth in [place] 00 :00 the Medical morning Branch and 1 tablet at noon and 1 tablet in the evening. metoprolol 2021-09- No [id number] 25mg Take 1 [facility] succinate 0-04 -20 tablet by [facility] of XL 25 mg 24 00:00: 00:00 mouth in [place] hr tablet 00 :00 the Medical morning. Branch hydrALAZINE 2021-09- No [id number] 25mg Take 1 [facility] 25 mg 0-04 -20 tablet by [facility] tablet 00:00: 00:00 mouth in [place] 00 :00 the Medical morning Branch and 1 tablet at noon and 1 tablet in the evening. metoprolol 2021-09- No [id number] 25mg Take 1 [facility] succinate 0-04 -20 tablet by [facility] XL 25 mg 24 00:00: 00:00 mouth in [place] hr tablet 00 :00 the Medical morning. Branch furosemide 2021-09- No [id number] 40mg Take 1 [facility] 40 mg 0-04 -07 tablet by [facility] tablet 00:00: 00:00 mouth in [place] 00 :00 the Medical morning. Branch aspirin 81 2021-09- No [id number] 81mg Take 1 [facility] mg EC 0-04 12-30 tablet by [facility] of tablet 00:00: 00:00 mouth in [place] 00 :00 the Medical morning. Branch aspirin 81 2021-09- No [id number] 81mg Take 1 [facility] mg EC 0-04 12-30 tablet by [facility] of tablet 00:00: 00:00 mouth in [place] 00 :00 the Medical morning. Branch metFORMIN 2021-0 Yes 500mg Take 500 [facility] vers 500 mg 9-08 mg by [facility] of tablet 10:53: mouth in [place] 35 the Medical morning Branch and 500 mg in the evening. Take with meals. metFORMIN 2021-0 Yes 500mg Take 500 [facility] vers 500 mg 9-08 mg by [facility] of tablet 10:53: mouth in [address] and 500 mg in the evening. Take with meals. metFORMIN 2022-0 Yes 500mg Take 500 [facility] vers 500 mg 9-08 mg by [facility] of tablet 10:53: mouth in [address] and 500 mg in the evening. Take with meals. metFORMIN 2022-0 Yes 500mg Take 500 [facility] vers 500 mg 9-08 mg by [facility] of tablet 10:53: mouth in [address] and 500 mg in the evening. Take with meals. metFORMIN 2022-0 Yes 500mg Take 500 [facility] vers 500 mg 9-08 mg by [facility] of tablet 10:53: mouth in [address] and 500 mg in the evening. Take with meals. metFORMIN 2022-0 Yes 500mg Take 500 [facility] vers 500 mg 9-08 mg by [facility] of tablet 10:53: mouth in [address] and 500 mg in the evening. Take with meals. hydrALAZINE 2022-0 Yes [id number] 10mg Take 1 [facility] 10 mg 8-15 tablet by [facility] of tablet 00:00: mouth in [address] and 1 tablet at noon and 1 tablet in the evening. furosemide 2022-0 Yes 40mg Take 1 [facility] rs 40 mg 8-15 tablet by [facility] of tablet 00:00: mouth in [place] [address] the morning. Branch hydrALAZINE 2022-0 Yes [id number] 10mg Take 1 [facility] 10 mg 8-15 tablet by [facility] of tablet 00:00: mouth in [address] and 1 tablet at noon and 1 tablet in the evening. furosemide 2022-0 Yes 40mg Take 1 [facility] rs 40 mg 8-15 tablet by [facility] of tablet 00:00: mouth in [place] [address] the morning. Branch hydrALAZINE 2022-0 2022- No [id number] 10mg Take 1 [facility] 10 mg 8-15 10-04 tablet by ity of tablet 00:00: 00:00 mouth in [place] 00 :00 [facility] morning [place] and 1 tablet at noon and 1 tablet in the evening. furosemide 2022-0 2022- No 40mg Take 1 [facility] ers 40 mg 8-15 10-04 tablet by ity of tablet 00:00: 00:00 mouth in [place] 00 :00 the Medical morning. Branch hydrALAZINE 2022-0 2022- No [id number] 10mg Take 1 [facility] 10 mg 8-15 10-04 tablet by ity of tablet 00:00: 00:00 mouth in [place] 00 :00 the Medical morning Branch and 1 tablet at noon and 1 tablet in the evening. furosemide No 40mg Take 1 [facility] ers 40 mg 8-15 10-04 tablet by [facility]y of tablet 00:00: 00:00 mouth in [place] 00 :00 the Medical morning. Branch Immunizations Ordered Filled Immunization Date Status Comments [facility] e Immunization Name Name Remdesivir 2022-03-03 Completed [facility] of 00:00:00 [facility] Remdesivir 2022-03-03 Completed [facility] 00:00:00 [facility] Remdesivir 2022-03-03 Completed [facility] 00:00:00 [facility] Remdesivir 2022-03-03 Completed [facility] 00:00:00 [facility] Remdesivir 2022-03-03 Completed [facility] 00:00:00 [facility] Remdesivir 2022-03-03 Completed [facility] 00:00:00 [facility] Remdesivir 2022-03-03 Completed [facility] 00:00:00 [facility] Remdesivir 2022-03-03 Completed [facility] 00:00:00 [facility] Remdesivir 2022-03-03 Completed [facility] 00:00:00 [facility] Remdesivir 2022-03-03 Completed [facility] 00:00:00 [facility] Remdesivir 2022-03-03 Completed [facility] 00:00:00 [facility] Remdesivir 2022-03-03 Completed [facility] 00:00:00 [facility] Remdesivir 2022-03-03 Completed [facility] 00:00:00 [facility] Remdesivir 2022-03-03 Completed [facility] 00:00:00 [facility] Remdesivir 2022-03-03 Completed [facility] 00:00:00 [facility] Remdesivir 2022-03-03 Completed [facility] 00:00:00 [facility] Remdesivir 2022-03-03 Completed [facility] 00:00:00 [facility] Remdesivir 2022-03-03 Completed [facility] of 00:00:00 [facility] Remdesivir 2022-03-03 Completed [facility] 00:00:00 [place] [facility] Remdesivir 2022-03-03 Completed [facility] 00:00:00 [place] [facility] Remdesivir 2022-03-03 Completed [facility] 00:00:00 [place] [facility] Remdesivir 2022-03-03 Completed [facility] 00:00:00 [place] [facility] Remdesivir 2022-03-03 Completed [facility] 00:00:00 [place] [facility] Remdesivir 2022-03-03 Completed [facility] 00:00:00 [place] [facility] Remdesivir 2022-03-03 Completed [facility] 00:00:00 [place] [facility] Remdesivir 2022-03-03 Completed [facility] 00:00:00 [place] [facility] Remdesivir 2022-03-03 Completed [facility] 00:00:00 [place] [facility] Remdesivir 2022-03-03 Completed [facility] 00:00:00 [place] [facility] Remdesivir 2022-03-03 Completed [facility] 00:00:00 [place] [facility] Remdesivir 2022-03-03 Completed [facility] 00:00:00 [place] [facility] Remdesivir 2022-03-03 Completed [facility] 00:00:00 [place] [facility] Remdesivir 2022-03-03 Completed [facility] 00:00:00 [place] [facility] Remdesivir 2022-03-03 Completed [facility] 00:00:00 [place] [facility] Remdesivir 2022-03-03 Completed [facility] 00:00:00 [place] [facility] Remdesivir 2022-03-03 Completed [facility] 00:00:00 [place] [facility] Remdesivir 2022-03-03 Completed [facility] 00:00:00 [place] [facility] Remdesivir 2022-03-03 Completed [facility] 00:00:00 [place] [facility] Remdesivir 2022-03-03 Completed [facility] 00:00:00 [place] [facility] Remdesivir 2022-03-03 Completed [facility] 00:00:00 [place] [facility] Remdesivir 2022-03-03 Completed [facility] 00:00:00 [place] [facility] Remdesivir 2022-03-03 Completed [facility] 00:00:00 [place] [facility] Remdesivir 2022-03-03 Completed [facility] 00:00:00 [place] [facility] Remdesivir 2022-03-03 Completed [facility] 00:00:00 [place] [facility] Remdesivir 2022-03-03 Completed [facility] 00:00:00 [place] [facility] Remdesivir 2022-03-03 Completed [facility] 00:00:00 [place] [facility] Remdesivir 2022-03-03 Completed [facility] 00:00:00 [place] [facility] Remdesivir 2022-03-03 Completed [facility] 00:00:00 [place] [facility] Remdesivir 2022-03-03 Completed [facility] 00:00:00 [place] [facility] Remdesivir 2022-03-03 Completed [facility] 00:00:00 [place] [facility] Remdesivir 2022-03-03 Completed [facility] 00:00:00 [place] [facility] Remdesivir 2022-03-03 Completed [facility] 00:00:00 [place] [facility] Remdesivir 2022-03-03 Completed [facility] 00:00:00 [place] [facility] Remdesivir 2022-03-03 Completed [facility] 00:00:00 [place] [facility] Remdesivir 2022-03-03 Completed [facility] 00:00:00 [place] [facility] Remdesivir 2022-03-03 Completed [facility] 00:00:00 [place] [facility] Remdesivir 2022-03-03 Completed [facility] 00:00:00 [place] [facility] Remdesivir 2022-03-03 Completed [facility] 00:00:00 [place] [facility] Remdesivir 2022-03-03 Completed [facility] 00:00:00 [place] [facility] Remdesivir 2022-03-03 Completed [facility] 00:00:00 [place] [facility] Remdesivir 2022-03-03 Completed [facility] 00:00:00 [place] [facility] Remdesivir 2022-03-03 Completed [facility] 00:00:00 [place] [facility] Remdesivir 2022-03-03 Completed [facility] 00:00:00 [place] [facility] Remdesivir 2022-03-03 Completed [facility] 00:00:00 [place] [facility] Remdesivir 2022-03-02 Completed [facility] 00:00:00 [place] [facility] Remdesivir 2022-03-02 Completed [facility] 00:00:00 [place] [facility] Remdesivir 2022-03-02 Completed [facility] 00:00:00 [place] [facility] Remdesivir 2022-03-02 Completed [facility] 00:00:00 [place] [facility] Remdesivir 2022-03-02 Completed [facility] 00:00:00 [place] [facility] Remdesivir 2022-03-02 Completed [facility] 00:00:00 [place] [facility] Remdesivir 2022-03-02 Completed [facility] 00:00:00 [place] [facility] Remdesivir 2022-03-02 Completed [facility] 00:00:00 [place] [facility] Remdesivir 2022-03-02 Completed [facility] 00:00:00 [place] [facility] Remdesivir 2022-03-02 Completed [facility] 00:00:00 [place] [facility] Remdesivir 2022-03-02 Completed [facility] 00:00:00 [place] [facility] Remdesivir 2022-03-02 Completed [facility] 00:00:00 [place] [facility] Remdesivir 2022-03-02 Completed [facility] 00:00:00 [place] [facility] Remdesivir 2022-03-02 Completed [facility] 00:00:00 [place] [facility] Remdesivir 2022-03-02 Completed [facility] 00:00:00 [place] [facility] Remdesivir 2022-03-02 Completed [facility] 00:00:00 [place] [facility] Remdesivir 2022-03-02 Completed [facility] 00:00:00 [place] [facility] Remdesivir 2022-03-02 Completed [facility] 00:00:00 [place] [facility] Remdesivir 2022-03-02 Completed [facility] 00:00:00 [place] [facility] Remdesivir 2022-03-02 Completed [facility] 00:00:00 [place] [facility] Remdesivir 2022-03-02 Completed [facility] 00:00:00 [place] [facility] Remdesivir 2022-03-02 Completed [facility] 00:00:00 [place] [facility] Remdesivir 2022-03-02 Completed [facility] 00:00:00 [place] [facility] Remdesivir 2022-03-02 Completed [facility] 00:00:00 [place] [facility] Remdesivir 2022-03-02 Completed [facility] 00:00:00 [place] [facility] Remdesivir 2022-03-02 Completed [facility] 00:00:00 [place] [facility] Remdesivir 2022-03-02 Completed [facility] 00:00:00 [place] [facility] Remdesivir 2022-03-02 Completed [facility] 00:00:00 [place] [facility] Remdesivir 2022-03-02 Completed [facility] 00:00:00 [place] [facility] Remdesivir 2022-03-02 Completed [facility] 00:00:00 [place] [facility] Remdesivir 2022-03-02 Completed [facility] 00:00:00 [place] [facility] Remdesivir 2022-03-02 Completed [facility] 00:00:00 [place] [facility] Remdesivir 2022-03-02 Completed [facility] 00:00:00 [place] [facility] Remdesivir 2022-03-02 Completed [facility] 00:00:00 [place] [facility] Remdesivir 2022-03-02 Completed [facility] 00:00:00 [place] [facility] Remdesivir 2022-03-02 Completed [facility] 00:00:00 [place] [facility] Remdesivir 2022-03-02 Completed [facility] 00:00:00 [place] [facility] Remdesivir 2022-03-02 Completed [facility] 00:00:00 [place] [facility] Remdesivir 2022-03-02 Completed [facility] 00:00:00 [place] [facility] Remdesivir 2022-03-02 Completed [facility] 00:00:00 [place] [facility] Remdesivir 2022-03-02 Completed [facility] 00:00:00 [place] [facility] Remdesivir 2022-03-02 Completed [facility] 00:00:00 [place] [facility] Remdesivir 2022-03-02 Completed [facility] 00:00:00 [place] [facility] Remdesivir 2022-03-02 Completed [facility] 00:00:00 [place] [facility] Remdesivir 2022-03-02 Completed [facility] 00:00:00 [place] [facility] Remdesivir 2022-03-02 Completed [facility] 00:00:00 [place] [facility] Remdesivir 2022-03-02 Completed [facility] 00:00:00 [place] [facility] Remdesivir 2022-03-02 Completed [facility] 00:00:00 [place] [facility] Remdesivir 2022-03-02 Completed [facility] 00:00:00 [place] [facility] Remdesivir 2022-03-02 Completed [facility] 00:00:00 [place] [facility] Remdesivir 2022-03-02 Completed [facility] 00:00:00 [place] [facility] Remdesivir 2022-03-02 Completed [facility] 00:00:00 [place] [facility] Remdesivir 2022-03-02 Completed [facility] 00:00:00 [place] [facility] Remdesivir 2022-03-02 Completed [facility] 00:00:00 [place] [facility] Remdesivir 2022-03-02 Completed [facility] 00:00:00 [place] [facility] Remdesivir 2022-03-02 Completed [facility] 00:00:00 [place] [facility] Remdesivir 2022-03-02 Completed [facility] 00:00:00 [place] [facility] Remdesivir 2022-03-02 Completed [facility] 00:00:00 [place] [facility] Remdesivir 2022-03-02 Completed [facility] 00:00:00 [place] [facility] Remdesivir 2022-03-02 Completed [facility] 00:00:00 [place] [facility] Remdesivir 2022-03-02 Completed [facility] 00:00:00 [place] [facility] Remdesivir 2022-03-02 Completed [facility] 00:00:00 [place] [facility] Remdesivir 2022-03-02 Completed [facility] 00:00:00 [place] [facility] Remdesivir 2022-03-01 Completed [facility] 00:00:00 [place] [facility] Remdesivir 2022-03-01 Completed [facility] 00:00:00 [place] [facility] Remdesivir 2022-03-01 Completed [facility] 00:00:00 [place] [facility] Remdesivir 2022-03-01 Completed [facility] 00:00:00 [place] [facility] Remdesivir 2022-03-01 Completed [facility] 00:00:00 [place] [facility] Remdesivir 2022-03-01 Completed [facility] 00:00:00 [place] [facility] Remdesivir 2022-03-01 Completed [facility] 00:00:00 [place] [facility] Remdesivir 2022-03-01 Completed [facility] 00:00:00 [place] [facility] Remdesivir 2022-03-01 Completed [facility] 00:00:00 [place] [facility] Remdesivir 2022-03-01 Completed [facility] 00:00:00 [place] [facility] Remdesivir 2022-03-01 Completed [facility] 00:00:00 [place] [facility] Remdesivir 2022-03-01 Completed [facility] 00:00:00 [place] [facility] Remdesivir 2022-03-01 Completed [facility] 00:00:00 [place] [facility] Remdesivir 2022-03-01 Completed [facility] 00:00:00 [place] [facility] Remdesivir 2022-03-01 Completed [facility] 00:00:00 [place] [facility] Remdesivir 2022-03-01 Completed [facility] 00:00:00 [place] [facility] Remdesivir 2022-03-01 Completed [facility] 00:00:00 [place] [facility] Remdesivir 2022-03-01 Completed [facility] 00:00:00 [place] [facility] Remdesivir 2022-03-01 Completed [facility] 00:00:00 [place] [facility] Remdesivir 2022-03-01 Completed [facility] 00:00:00 [place] [facility] Remdesivir 2022-03-01 Completed [facility] 00:00:00 [place] [facility] Remdesivir 2022-03-01 Completed [facility] 00:00:00 [place] [facility] Remdesivir 2022-03-01 Completed [facility] 00:00:00 [place] [facility] Remdesivir 2022-03-01 Completed [facility] 00:00:00 [place] [facility] Remdesivir 2022-03-01 Completed [facility] 00:00:00 [place] [facility] Remdesivir 2022-03-01 Completed [facility] 00:00:00 [place] [facility] Remdesivir 2022-03-01 Completed [facility] 00:00:00 [place] [facility] Remdesivir 2022-03-01 Completed [facility] 00:00:00 [place] [facility] Remdesivir 2022-03-01 Completed [facility] 00:00:00 [place] [facility] Remdesivir 2022-03-01 Completed [facility] 00:00:00 [place] [facility] Remdesivir 2022-03-01 Completed [facility] of 00:00:00 [place] [facility] Remdesivir 2022-03-01 Completed [facility] 00:00:00 [place] [facility] Remdesivir 2022-03-01 Completed [facility] 00:00:00 [place] [facility] Remdesivir 2022-03-01 Completed [facility] 00:00:00 [place] [facility] Remdesivir 2022-03-01 Completed [facility] 00:00:00 [place] [facility] Remdesivir 2022-03-01 Completed [facility] 00:00:00 [place] [facility] Remdesivir 2022-03-01 Completed [facility] 00:00:00 [place] [facility] Remdesivir 2022-03-01 Completed [facility] 00:00:00 [place] [facility] [facility] Remdesivir 2022-03-01 Completed [facility] 00:00:00 [facility] Remdesivir 2022-03-01 Completed [facility] 00:00:00 [facility] Remdesivir 2022-03-01 Completed [facility] 00:00:00 [facility] Remdesivir 2022-03-01 Completed [facility] 00:00:00 [facility] Remdesivir 2022-03-01 Completed [facility] 00:00:00 [facility] Remdesivir 2022-03-01 Completed [facility] 00:00:00 [facility] Remdesivir 2022-03-01 Completed [facility] 00:00:00 [facility] Remdesivir 2022-03-01 Completed [facility] 00:00:00 [facility] Remdesivir 2022-03-01 Completed [facility] 00:00:00 [facility] Remdesivir 2022-03-01 Completed [facility] 00:00:00 [facility] Remdesivir 2022-03-01 Completed [facility] 00:00:00 [facility] Remdesivir 2022-03-01 Completed [facility] 00:00:00 [facility] Remdesivir 2022-03-01 Completed [facility] 00:00:00 [facility] Remdesivir 2022-03-01 Completed [facility] 00:00:00 [facility] Remdesivir 2022-03-01 Completed [facility] 00:00:00 [facility] Remdesivir 2022-03-01 Completed [facility] 00:00:00 [facility] Remdesivir 2022-03-01 Completed [facility] 00:00:00 [facility] Remdesivir 2022-03-01 Completed [facility] 00:00:00 [facility] Remdesivir 2022-03-01 Completed [facility] 00:00:00 [facility] Remdesivir 2022-03-01 Completed [facility] 00:00:00 [facility] Remdesivir 2022-03-01 Completed [facility] 00:00:00 [facility] Remdesivir 2022-03-01 Completed [facility] 00:00:00 [facility] Remdesivir 2022-03-01 Completed [facility] 00:00:00 [facility] Remdesivir 2022-03-01 Completed [facility] 00:00:00 [facility] Remdesivir 2022-03-01 Completed [facility] 00:00:00 [facility] Remdesivir 2022-02-28 Completed [facility] 00:00:00 [facility] Remdesivir 2022-02-28 Completed [facility] 00:00:00 [facility] Remdesivir 2022-02-28 Completed [facility] 00:00:00 [facility] Remdesivir 2022-02-28 Completed [facility] 00:00:00 [facility] Remdesivir 2022-02-28 Completed [facility] 00:00:00 [facility] Remdesivir 2022-02-28 Completed [facility] 00:00:00 [facility] Remdesivir 2022-02-28 Completed [facility] 00:00:00 [facility] Remdesivir 2022-02-28 Completed [facility] 00:00:00 [facility] Remdesivir 2022-02-28 Completed [facility] 00:00:00 [facility] Remdesivir 2022-02-28 Completed [facility] 00:00:00 [facility] Remdesivir 2022-02-28 Completed [facility] 00:00:00 [facility] Remdesivir 2022-02-28 Completed [facility] 00:00:00 [facility] Remdesivir 2022-02-28 Completed [facility] 00:00:00 [facility] Remdesivir 2022-02-28 Completed [facility] 00:00:00 [facility] Remdesivir 2022-02-28 Completed [facility] 00:00:00 [facility] Remdesivir 2022-02-28 Completed [facility] 00:00:00 [facility] Remdesivir 2022-02-28 Completed [facility] 00:00:00 [facility] Remdesivir 2022-02-28 Completed [facility] 00:00:00 [facility] Remdesivir 2022-02-28 Completed [facility] 00:00:00 [facility] Remdesivir 2022-02-28 Completed [facility] 00:00:00 [facility] Remdesivir 2022-02-28 Completed [facility] 00:00:00 [facility] Remdesivir 2022-02-28 Completed [facility] 00:00:00 [facility] Remdesivir 2022-02-28 Completed [facility] 00:00:00 [facility] Remdesivir 2022-02-28 Completed [facility] 00:00:00 [facility] Remdesivir 2022-02-28 Completed [facility] 00:00:00 [facility] Remdesivir 2022-02-28 Completed [facility] 00:00:00 [facility] Remdesivir 2022-02-28 Completed [facility] 00:00:00 [facility] Remdesivir 2022-02-28 Completed [facility] 00:00:00 [facility] Remdesivir 2022-02-28 Completed [facility] 00:00:00 [facility] Remdesivir 2022-02-28 Completed [facility] 00:00:00 [facility] Remdesivir 2022-02-28 Completed [facility] 00:00:00 [facility] Remdesivir 2022-02-28 Completed [facility] 00:00:00 [facility] Remdesivir 2022-02-28 Completed [facility] 00:00:00 [facility] Remdesivir 2022-02-28 Completed [facility] 00:00:00 [facility] Remdesivir 2022-02-28 Completed [facility] 00:00:00 [facility] Remdesivir 2022-02-28 Completed [facility] 00:00:00 [facility] Remdesivir 2022-02-28 Completed [facility] 00:00:00 [facility] Remdesivir 2022-02-28 Completed [facility] 00:00:00 [facility] Remdesivir 2022-02-28 Completed [facility] 00:00:00 [facility] Remdesivir 2022-02-28 Completed [facility] 00:00:00 [facility] Remdesivir 2022-02-28 Completed [facility] 00:00:00 [facility] Remdesivir 2022-02-28 Completed [facility] 00:00:00 [facility] Remdesivir 2022-02-28 Completed [facility] 00:00:00 [facility] Remdesivir 2022-02-28 Completed [facility] 00:00:00 [facility] Remdesivir 2022-02-28 Completed [facility] 00:00:00 [facility] Remdesivir 2022-02-28 Completed [facility] 00:00:00 [facility] Remdesivir 2022-02-28 Completed [facility] 00:00:00 [facility] Remdesivir 2022-02-28 Completed [facility] 00:00:00 [facility] Remdesivir 2022-02-28 Completed [facility] 00:00:00 [facility] Remdesivir 2022-02-28 Completed [facility] 00:00:00 [facility] Remdesivir 2022-02-28 Completed [facility] 00:00:00 [facility] Remdesivir 2022-02-28 Completed [facility] 00:00:00 [facility] Remdesivir 2022-02-28 Completed [facility] 00:00:00 [facility] Remdesivir 2022-02-28 Completed [facility] 00:00:00 [facility] Remdesivir 2022-02-28 Completed [facility] 00:00:00 [facility] Remdesivir 2022-02-28 Completed [facility] 00:00:00 [facility] Remdesivir 2022-02-28 Completed [facility] 00:00:00 [facility] Remdesivir 2022-02-28 Completed [facility] 00:00:00 [facility] Remdesivir 2022-02-28 Completed [facility] 00:00:00 [facility] Remdesivir 2022-02-28 Completed [facility] 00:00:00 [facility] Remdesivir 2022-02-28 Completed [facility] 00:00:00 [facility] Remdesivir 2022-02-28 Completed [facility] 00:00:00 [facility] Remdesivir 2022-02-28 Completed [facility] 00:00:00 [facility] Remdesivir 2022-02-27 Completed [facility] 00:00:00 [facility] Remdesivir 2022-02-27 Completed [facility] 00:00:00 [facility] Remdesivir 2022-02-27 Completed [facility] 00:00:00 [facility] Remdesivir 2022-02-27 Completed [facility] 00:00:00 [facility] Remdesivir 2022-02-27 Completed [facility] 00:00:00 [facility] Remdesivir 2022-02-27 Completed [facility] 00:00:00 [facility] Remdesivir 2022-02-27 Completed [facility] 00:00:00 [facility] Remdesivir 2022-02-27 Completed [facility] 00:00:00 [facility] Remdesivir 2022-02-27 Completed [facility] 00:00:00 [facility] Remdesivir 2022-02-27 Completed [facility] 00:00:00 [facility] Remdesivir 2022-02-27 Completed [facility] 00:00:00 [facility] Remdesivir 2022-02-27 Completed [facility] 00:00:00 [facility] Remdesivir 2022-02-27 Completed [facility] 00:00:00 [facility] Remdesivir 2022-02-27 Completed [facility] 00:00:00 [facility] Remdesivir 2022-02-27 Completed [facility] 00:00:00 [facility] Remdesivir 2022-02-27 Completed [facility] 00:00:00 [facility] Remdesivir 2022-02-27 Completed [facility] 00:00:00 [facility] Remdesivir 2022-02-27 Completed [facility] 00:00:00 [facility] Remdesivir 2022-02-27 Completed [facility] 00:00:00 [facility] Remdesivir 2022-02-27 Completed [facility] 00:00:00 [facility] Remdesivir 2022-02-27 Completed [facility] 00:00:00 [facility] Remdesivir 2022-02-27 Completed [facility] 00:00:00 [facility] Remdesivir 2022-02-27 Completed [facility] 00:00:00 [facility] Remdesivir 2022-02-27 Completed [facility] 00:00:00 [facility] Remdesivir 2022-02-27 Completed [facility] 00:00:00 [facility] Remdesivir 2022-02-27 Completed [facility] 00:00:00 [facility] Remdesivir 2022-02-27 Completed [facility] 00:00:00 [facility] Remdesivir 2022-02-27 Completed [facility] 00:00:00 [facility] Remdesivir 2022-02-27 Completed [facility] 00:00:00 [facility] Remdesivir 2022-02-27 Completed [facility] 00:00:00 [facility] Remdesivir 2022-02-27 Completed [facility] 00:00:00 [facility] Remdesivir 2022-02-27 Completed [facility] 00:00:00 [facility] Remdesivir 2022-02-27 Completed [facility] 00:00:00 [facility] Remdesivir 2022-02-27 Completed [facility] 00:00:00 [facility] Remdesivir 2022-02-27 Completed [facility] 00:00:00 [facility] Remdesivir 2022-02-27 Completed [facility] 00:00:00 [facility] Remdesivir 2022-02-27 Completed [facility] 00:00:00 [facility] Remdesivir 2022-02-27 Completed [facility] 00:00:00 [facility] Remdesivir 2022-02-27 Completed [facility] 00:00:00 [facility] Remdesivir 2022-02-27 Completed [facility] 00:00:00 [facility] Remdesivir 2022-02-27 Completed [facility] 00:00:00 [facility] Remdesivir 2022-02-27 Completed [facility] 00:00:00 [facility] Remdesivir 2022-02-27 Completed [facility] 00:00:00 [facility] Remdesivir 2022-02-27 Completed [facility] 00:00:00 [facility] Remdesivir 2022-02-27 Completed [facility] 00:00:00 [facility] Remdesivir 2022-02-27 Completed [facility] 00:00:00 [facility] Remdesivir 2022-02-27 Completed [facility] 00:00:00 [facility] Remdesivir 2022-02-27 Completed [facility] 00:00:00 [facility] Remdesivir 2022-02-27 Completed [facility] 00[facility]00:00 [facility] Remdesivir 2022-02-27 Completed [facility] 00:00:00 [facility] Remdesivir 2022-02-27 Completed [facility] 00[facility]00:00 [facility] Remdesivir 2022-02-27 Completed [facility] 00:00:00 [facility] Remdesivir 2022-02-27 Completed [facility] 00[facility]00:00 [facility] Remdesivir 2022-02-27 Completed [facility] 00:00:00 [facility] Remdesivir 2022-02-27 Completed [facility] 00[facility]00:00 [facility] Remdesivir 2022-02-27 Completed [facility] 00:00:00 [facility] Remdesivir 2022-02-27 Completed [facility] 00[facility]00:00 [facility] Remdesivir 2022-02-27 Completed [facility] 00:00:00 [facility] Remdesivir 2022-02-27 Completed [facility] 00:00:00 [facility] Remdesivir 2022-02-27 Completed [facility] 00:00:00 [facility] Remdesivir 2022-02-27 Completed [facility] 00:00:00 [facility] Remdesivir 2022-02-27 Completed [facility] 00:00:00 [facility] Remdesivir 2022-02-27 Completed [facility] 00:00:00 [facility] Vital Signs Vital Name Observation Time Observation Value Comments Source Systolic blood 2023-03-29 140 mm[Hg] [facility] of pressure 09:12:00 [facility] Diastolic blood 2023-03-29 56 mm[Hg] University o f pressure 09:12:00 [facility] Heart rate 2023-03-29 70 /min [facility] 09:12:00 [facility] Body temperature 2023-03-29 36.17 Anaya [facility] 09:12:00 [facility] Respiratory rate 2023-03-29 18 /min [facility] 09:12:00 [facility] Oxygen saturation 2023-03-29 100 /min [facility] of in Arterial blood 09:12:00 [facility] joseph by Pulse oximetry Branch Body weight 2023-03-28 99 kg University of 21:56:00 [facility] BMI 2023-03-28 28.02 kg/m2 University of 21:56:00 [facility] Body height 2023-03-18 188 cm [facility] 14:00:00 [facility] Systolic blood 2023-03-25 128 mm[Hg] [facility] pressure 16:15:00 [facility] Diastolic blood 2023-03-25 59 mm[Hg] University o f pressure 16:15:00 [facility] Heart rate 2023-03-25 68 /min [facility] 16:15:00 [facility] Body temperature 2023-03-25 36.22 Anaya [facility] 16:15:00 [facility] Respiratory rate 2023-03-25 20 /min [facility] 16:15:00 [facility] Oxygen saturation 2023-03-25 100 /min [facility] in Arterial blood 16:15:00 [facility] by Pulse oximetry Branch Body weight 2023-03-21 93.895 kg standing scale University of 11:01:00 [facility] BMI 2023-03-21 27.88 kg/m2 [facility] 11:01:00 [facility] Body height 2023-03-18 188 cm [facility] 14:00:00 [facility] Systolic blood 2023-02-13 189 mm[Hg] [facility] pressure 12:07:00 [facility] Diastolic blood 2023-02-13 52 mm[Hg] [facility] o f pressure 12:07:00 [facility] Heart rate 2023-02-13 62 /min [facility] 12:07:00 [facility] Body temperature 2023-02-13 36.83 Anaya [facility] 12:07:00 [facility] Respiratory rate 2023-02-13 16 /min [facility] 12:07:00 [facility] Body height 2023-02-13 188 cm [facility] 12:07:00 [facility] Body weight 2023-02-13 106.3 kg [facility] 12:07:00 [facility] BMI 2023-02-13 30.09 kg/m2 [facility] 12:07:00 [facility] Oxygen saturation 2023-02-13 95 /min [facility] in Arterial blood 12:07:00 [facility] P[facility] Systolic blood 2023-02-04 162 mm[Hg] [facility] pressure 20:12:00 [facility] Diastolic blood 2023-02-04 61 mm[Hg] [facility] o f pressure 20:12:00 [facility] Heart rate 2023-02-04 62 /min [facility] 20:12:00 [facility] Respiratory rate 2023-02-04 19 /min [facility] 20:12:00 [facility] Body height 2023-02-04 182.9 cm [facility] 20:12:00 [facility] Body weight 2023-02-04 105.507 kg [facility] of 20:12:00 [facility] BMI 2023-02-04 31.55 kg/m2 [facility] 20:12:00 [facility] Oxygen saturation 2023-02-04 93 /min [facility] in Arterial blood 20:12:00 [facility]ph by Pulse oximetry [facility] Systolic blood 2023-01-17 130 mm[Hg] [facility] pressure 18:32:00 [facility] Diastolic blood 2023-01-17 74 mm[Hg] [facility] o f pressure 18:32:00 [facility] Heart rate 2023-01-17 75 /min [facility] 18:32:00 [facility] Body temperature 2023-01-17 36.78 Anaya [facility] 18:32:00 [facility] Respiratory rate 2023-01-17 18 /min [facility] 18:32:00 [facility] Body height 2023-01-17 188 cm [facility] 18:32:00 [facility] Body weight 2023-01-17 102.785 kg University of 18:32:00 [facility] BMI 2023-01-17 29.09 kg/m2 University of 18:32:00 [facility] Oxygen saturation 2023-01-17 95 /min [facility] in Arterial blood 18:32:00 [facility]ph by Pulse oximetry Branch Systolic blood 2023-01-16 133 mm[Hg] [facility] pressure 15:49:00 [facility] Diastolic blood 2023-01-16 64 mm[Hg] University o f pressure 15:49:00 [facility] Heart rate 2023-01-16 84 /min [facility] 15:34:00 [facility] Body temperature 2023-01-16 36.56 Anaya [facility] 15:34:00 [facility] Respiratory rate 2023-01-16 18 /min [facility] 15:34:00 [facility] Body height 2023-01-16 182.9 cm University [facility] 15:34:00 [facility] Body weight 2023-01-16 102.74 kg University of 15:34:00 [facility] BMI 2023-01-16 30.72 kg/m2 [facility] 15:34:00 [facility] Oxygen saturation 2023-01-16 93 /min [facility] in Arterial blood 15:34:00 [facility] Systolic blood 2022-12-04 107 mm[Hg] [facility] pressure 18:28:00 [facility] Diastolic blood 2022-12-04 59 mm[Hg] [facility] o f pressure 18:28:00 [facility] Heart rate 2022-12-04 68 /min [facility] 18:28:00 [facility] Respiratory rate 2022-12-04 18 /min [facility] 18:28:00 [facility] Body height 2022-12-04 182.9 cm University of 18:28:00 [facility] Body weight 2022-12-04 99.746 kg University of 18:28:00 [facility] BMI 2022-12-04 29.82 kg/m2 University of 18:28:00 [facility] Oxygen saturation 2022-12-04 94 /min [facility] in Arterial blood 18:28:00 [facility] joseph by Pulse oximetry Branch Systolic blood 2022-11-26 133 mm[Hg] [facility] pressure 15:33:00 [facility] Diastolic blood 2022-11-26 70 mm[Hg] University o f pressure 15:33:00 [facility] Heart rate 2022-11-26 80 /min [facility] 15:33:00 [facility] Respiratory rate 2022-11-26 19 /min [facility] of 15:33:00 [facility] Body height 2022-11-26 188 cm [facility] 15:33:00 [facility] Body weight 2022-11-26 100.472 kg University of 15:33:00 [facility] BMI 2022-11-26 28.44 kg/m2 [facility] of 15:33:00 [facility] Oxygen saturation 2022-11-26 95 /min [facility] in Arterial blood 15:33:00 [facility] Systolic blood 2022-10-15 131 mm[Hg] [facility] pressure 19:29:00 [facility] Diastolic blood 2022-10-15 60 mm[Hg] [facility] o f pressure 19:29:00 [facility] Heart rate 2022-10-15 74 /min [facility] of 19:29:00 [facility] Body temperature 2022-10-15 36.5 Anaya [facility] 19:24:00 [facility] Respiratory rate 2022-10-15 18 /min [facility] of 19:24:00 [facility] Body height 2022-10-15 185.4 cm [facility] of 19:24:00 [facility] Body weight 2022-10-15 91.717 kg University of 19:24:00 [facility] BMI 2022-10-15 26.68 kg/m2 University of 19:24:00 [facility] Oxygen saturation 2022-10-15 96 /min [facility] in Arterial blood 19:24:00 [facility] Systolic blood 2022-10-11 121 mm[Hg] [facility] pressure 20:11:00 [facility] Diastolic blood 2022-10-11 66 mm[Hg] [facility] o f pressure 20:11:00 [facility] Heart rate 2022-10-11 65 /min [facility] 20:11:00 [facility] Body temperature 2022-10-11 36.67 Anaya [facility] 20:11:00 [facility] Body height 2022-10-11 182.9 cm [facility] 20:11:00 [facility] Body weight 2022-10-11 90.81 kg University of 20:11:00 [facility] BMI 2022-10-11 27.15 kg/m2 [facility] 20:11:00 [facility] Oxygen saturation 2022-10-11 97 /min [facility] in Arterial blood 20:11:00 [facility] Heart rate 2022-10-05 72 /min [facility] 19:21:00 [facility] Oxygen saturation 2022-10-05 100 /min room air [facility] in Arterial blood 19:21:00 [facility] Systolic blood 2022-10-05 118 mm[Hg] [facility] pressure 18:36:00 [facility] Diastolic blood 2022-10-05 68 mm[Hg] [facility] o f pressure 18:36:00 [facility] Body temperature 2022-10-05 36.72 Anaya [facility] 17:00:00 [facility] Respiratory rate 2022-10-05 16 /min [facility] 17:00:00 [facility] Body height 2022-10-02 182.9 cm University of 16:30:00 [facility] Body weight 2022-10-02 90.719 kg University of 16:30:00 [facility] BMI 2022-10-02 27.12 kg/m2 [facility] 16:30:00 [facility] Systolic blood 2022-09-28 103 mm[Hg] [facility] pressure 19:28:00 [facility] Diastolic blood 2022-09-28 54 mm[Hg] [facility] o f pressure 19:28:00 [facility] Heart rate 2022-09-28 86 /min [facility] 19:28:00 [facility] Respiratory rate 2022-09-28 18 /min [facility] 19:27:00 [facility] Body height 2022-09-28 185.4 cm [facility] of 19:27:00 [facility] Body weight 2022-09-28 97.523 kg University of 19:27:00 [facility] BMI 2022-09-28 28.37 kg/m2 University of 19:27:00 [facility] Oxygen saturation 2022-09-28 96 /min University in Arterial blood 19:27:00 [facility] Pulse oximetry [place] Systolic blood 2022-09-26 123 mm[Hg] [facility] of pressure 23:34:00 [facility] Diastolic blood 2022-09-26 57 mm[Hg] [facility] o f pressure 23:34:00 [facility] Heart rate 2022-09-26 71 /min [facility] of 23:34:00 [facility] Body temperature 2022-09-26 37 Anaya [facility] 23:34:00 [facility] Respiratory rate 2022-09-26 14 /min [facility] 23:34:00 [facility] Body height 2022-09-26 185.4 cm University of 23:34:00 [facility] Body weight 2022-09-26 97.523 kg University of 23:34:00 [facility] BMI 2022-09-26 28.37 kg/m2 University of 23:34:00 [facility] Oxygen saturation 2022-09-26 99 /min [facility] in Arterial blood 23:34:00 [facility]ph by Pulse oximetry Branch Systolic blood 2022-09-25 143 mm[Hg] [facility] pressure 00:41:00 [facility] Diastolic blood 2022-09-25 77 mm[Hg] [facility] o f pressure 00:41:00 [facility] Heart rate 2022-09-25 80 /min [facility] 00:41:00 [facility] Body temperature 2022-09-25 36.44 Anaya [facility] 00:41:00 [facility] Body height 2022-09-25 185.4 cm [facility] 00:41:00 [facility] Body weight 2022-09-25 92.335 kg [facility] of 00:41:00 [facility] BMI 2022-09-25 26.86 kg/m2 [facility] of 00:41:00 [facility] Oxygen saturation 2022-09-25 90 /min wears o2 2l via Univers [facility] in Arterial blood 00:41:00 [facility] by Pulse oximetry Branch Systolic blood 2022-09-21 150 mm[Hg] [facility] pressure 21:02:00 [facility] Diastolic blood 2022-09-21 64 mm[Hg] [facility] o f pressure 21:02:00 [facility] Heart rate 2022-09-21 81 /min [facility] 21:02:00 [facility] Body temperature 2022-09-21 37.39 Anaya [facility] 20:54:00 [facility] Respiratory rate 2022-09-21 18 /min [facility] 20:54:00 [facility] Body height 2022-09-21 185.4 cm [facility] 20:54:00 [facility] Body weight 2022-09-21 95.255 kg [facility] of 20:54:00 [facility] BMI 2022-09-21 27.71 kg/m2 [facility] of 20:54:00 [facility] Oxygen saturation 2022-09-21 95 /min [facility] in Arterial blood 20:54:00 [facility]ph by Pulse oximetry Branch Systolic blood 2022-09-18 133 mm[Hg] [facility] pressure 15:09:00 [facility] Diastolic blood 2022-09-18 69 mm[Hg] [facility] o f pressure 15:09:00 [facility] Heart rate 2022-09-18 81 /min [facility] 15:03:00 [facility] Center Body temperature 2022-09-18 36.06 [facility]aya [facility] of 15:03:00 [facility] Respiratory rate 2022-09-18 18 /min University of 15:03:00 [facility] Body height 2022-09-18 185.4 cm University of 15:03:00 [facility] Body weight 2022-09-18 95.346 kg University of 15:03:00 [facility] BMI 2022-09-18 27.73 kg/m2 University of 15:03:00 [facility] Oxygen saturation 2022-09-18 97 /min University of in Arterial blood 15:03:00 [place] [facility] by Pulse oximetry [facility] Systolic blood 2022-09-08 136 mm[Hg] University of pressure 17:56:00 [facility] Diastolic blood 2022-09-08 63 mm[Hg] University o f pressure 17:56:00 [facility] Heart rate 2022-09-08 72 /min University of 17:56:00 [facility] Body temperature 2022-09-08 36.17 Anaya [facility] of 17:56:00 [facility] Respiratory rate 2022-09-08 18 /min University of 17:56:00 [facility] Oxygen saturation 2022-09-08 91 /min University of in Arterial blood 17:56:00 [facility] joseph by Pulse oximetry Branch Body weight 2022-09-07 103.465 kg University of 10:52:00 [facility] BMI 2022-09-07 30.09 kg/m2 University of 10:52:00 [facility] Body height 2022-08-31 185.4 cm University of 17:08:00 [facility] Systolic blood 2022-09-04 140 mm[Hg] University of pressure 19:19:07 [facility] Diastolic blood 2022-09-04 67 mm[Hg] University o f pressure 19:19:07 [facility] Respiratory rate 2022-09-04 26 /min University of 19:19:07 [facility] Oxygen saturation 2022-09-04 99 /min University of in Arterial blood 19:19:07 [place] [facility] by Pulse oximetry [facility] Heart rate 2022-09-04 66 /min University of 18:05:00 [facility] Body temperature 2022-09-04 36.22 Anaya [facility] of 14:03:00 [facility] Body weight 2022-09-04 109.272 kg actual wt on University of 11:33:[address] [facility] Branch BMI 2022-09-04 31.78 kg/m2 University of 11:33:00 [facility] Body height 2022-08-31 185.4 cm University of 17:08:00 [facility] Systolic blood 2022-06-05 160 mm[Hg] University of pressure 16:06:00 [facility] Diastolic blood 2022-06-05 79 mm[Hg] University o f pressure 16:06:00 [facility] Heart rate 2022-06-05 83 /min University of 16:06:00 [facility] Respiratory rate 2022-06-05 18 /min University of 16:06:00 [facility] Oxygen saturation 2022-06-05 95 /min University of in Arterial blood 16:06:00 [facility] joseph by Pulse oximetry Branch Body temperature 2022-06-05 36.83 Anaya [facility] of 16:04:00 [facility] Body weight 2022-06-05 105.597 kg University of 16:04:00 [facility] BMI 2022-06-05 29.89 kg/m2 University of 16:04:00 [facility] Systolic blood 2022-05-10 161 mm[Hg] University of pressure 15:56:00 [facility] Diastolic blood 2022-05-10 78 mm[Hg] University o f pressure 15:56:00 [facility] Heart rate 2022-05-10 80 /min University of 15:56:00 [facility] Oxygen saturation 2022-05-10 91 /min University of in Arterial blood 15:56:00 [place] [facility] Pulse oxim[facility] Respiratory rate 2022-05-10 20 /min University of 15:55:00 [facility] Body height 2022-05-10 188 cm University of 15:55:00 [facility] Body weight 2022-05-10 103.329 kg University of 15:55:00 [facility] BMI 2022-05-10 29.25 kg/m2 University of 15:55:00 [facility] Systolic blood 2023-03-20 126 mm[Hg] University of pressure 16:30:00 [facility] Diastolic blood 2023-03-20 53 mm[Hg] University o f pressure 16:30:00 [facility] Heart rate 2023-03-20 75 /min University of 16:30:00 [facility] Respiratory rate 2023-03-20 20 /min University of 13:30:00 [facility] Body weight 2023-03-20 101.5 kg bed scale University of 13:30:00 [facility] BMI 2023-03-20 28.73 kg/m2 University of 13:30:00 [facility] Body temperature 2023-03-20 36.5 Anaya [facility] of 12:25:00 [facility] Oxygen saturation 2023-03-20 97 /min [facility] in Arterial blood 12:25:00 [facility] by Pulse oximetry Branch Body height 2023-03-18 188 cm University of 14:00:00 [facility] Heart rate 2023-03-07 74 /min University 16:03:00 [facility] Body temperature 2023-03-07 36.39 [facility] 16:03:00 [facility] Respiratory rate 2023-03-07 20 /min University 16:03:00 [facility] Oxygen saturation 2023-03-07 98 /min [facility] in Arterial blood 16:03:00 [facility] by Pulse oximetry Branch Systolic blood 2023-03-06 121 mm[Hg] [facility] pressure 22:00:00 [facility] Diastolic blood 2023-03-06 51 mm[Hg] [place] o pressure 22:00:00 [facility] Body height 2023-03-06 188 cm University 17:47:30 [facility] Body weight 2023-03-06 112.946 kg University of 17:47:30 [facility] BMI 2023-03-06 31.97 kg/m2 University 17:47:30 [facility] Procedures Procedure Date / Time Performing Clinician Source Performed POCT GLUCOSE (AUTOMATED) 2023-04-01 17:54:00 [facility]) 2023-04-01 12:58:00 [facility]SE (AUTOMATED) 2023-04-01 11:38:00 Luciano Long [facility] PHOSPHORUS 2023-04-01 09:34:00 [facility] MAGNESIUM 2023-04-01 09:34:00 [facility] BASIC METABOLIC PANEL 2023-04-01 09:34:00 [facility] (NA, K, CL, CO2, GLUCOSE, [facility] BUN, CREATININE, CA) CBC WITH DIFF 2023-04-01 09:34:00 [facility] POCT GLUCOSE (AUTOMATED) 2023-04-01 09:18:00 LicLuciano garcia Uni versity of [facility] POCT GLUCOSE (AUTOMATED) 2023-04-01 04:37:00 LickLuciano Uni versity of [facility] POCT GLUCOSE (AUTOMATED) 2023-03-31 22:52:00 LickLuciano Uni versity of [facility] POCT GLUCOSE (AUTOMATED) 2023-03-31 17:55:00 LickLuciano Uni versity of [facility] POCT GLUCOSE (AUTOMATED) 2023-03-31 13:52:00 LickLuciano versity [facility] POCT GLUCOSE (AUTOMATED) 2023-03-31 12:44:00 LickLuciano Uni versity of [facility] POCT GLUCOSE (AUTOMATED) 2023-03-31 10:58:00 LickLuciano versity [facility] PHOSPHORUS 2023-03-31 07:43:00 [facility] MAGNESIUM 2023-03-31 07:43:00 [facility] BASIC METABOLIC PANEL 2023-03-31 07:43:00 [facility] (NA, K, CL, CO2, GLUCOSE, [facility] BUN, CREATININE, CA) CBC WITH DIFF 2023-03-31 07:43:00 [facility] POCT GLUCOSE (AUTOMATED) 2023-03-31 05:00:00 LickLuciano Uni versity [facility] POCT GLUCOSE (AUTOMATED) 2023-03-30 23:26:00 LickLuciano Uni versity of [facility] POCT GLUCOSE (AUTOMATED) 2023-03-30 17:19:00 Luciano Long [facility] POCT GLUCOSE (AUTOMATED) 2023-03-30 14:59:00 Luciano Long [facility] UPPER EXTREMITY ARTERIAL 2023-03-30 14:21:10 Ashwin Fried [facility] DUPLEX BILATERAL - BY [facility] VASCULAR LAB POCT GLUCOSE (AUTOMATED) 2023-03-30 11:10:00 Luciano Long Bella [facility] PHOSPHORUS 2023-03-30 05:14:00 [facility] MAGNESIUM 2023-03-30 05:14:00 [facility] BASIC METABOLIC PANEL 2023-03-30 05:14:00 [facility] (NA, K, CL, CO2, GLUCOSE, [facility] BUN, CREATININE, CA) CBC WITH DIFF 2023-03-30 05:14:00 [facility] POCT GLUCOSE (AUTOMATED) 2023-03-30 05:12:00 Luciano Long [facility] POCT GLUCOSE (AUTOMATED) 2023-03-30 03:56:00 Luciano Long Bella [facility] POTASSIUM SERUM 2023-03-30 02:21:00 Jo Ann Cortes [facility] BASIC METABOLIC PANEL 2023-03-30 00:58:00 Soy Coates [facility] (NA, K, CL, CO2, GLUCOSE, Medica l Branch BUN, CREATININE, CA) POCT GLUCOSE (AUTOMATED) 2023-03-29 23:41:00 Luciano Long Bella [facility] ABG+COOX+NA+K+GLU+CA2+ 2023-03-29 21:16:00 Luciano Long [facility] PHOSPHORUS 2023-03-29 21:08:00 [facility] ACTIVATED PARTIAL 2023-03-29 21:08:00 [facility] Eller [facility] POCT GLUCOSE (AUTOMATED) 2023-03-29 21:08:00 Luciano Long [facility] CBC WITHOUT DIFF 2023-03-29 21:07:00 [facility] & RHYTHM 2023-03-29 20:58:44 Dianne Palmer [facility] TRANSFUSE PACKED RBC (IN 2023-03-29 18:39:00 Lashay Samayoa [facility]) Medical Branch TRANSFUSE PACKED RBC (IN 2023-03-29 16:55:00 [facility] FL TIME OR 2023-03-29 16:33:46 Heaven Charles [facility] (NON-REPORTABLE) [facility] PREPARE PACKED RBC 2023-03-29 16:13:23 Lashay Samayoa [facility] TRANSFUSE PACKED RBC (IN 2023-03-29 14:20:00 [facility]ashay [facility] Branch BELOW THE KNEE AMPUTATION 2023-03-29 13:20:00 [facility] ARTERIOGRAM 2023-03-29 13:20:00 Heaven [facility] PREPARE PACKED RBC 2023-03-29 13:16:36 Ashwin Fried [facility] POCT GLUCOSE (AUTOMATED) 2023-03-29 09:15:00 Luciano Long [facility] CBC WITH DIFF 2023-03-29 09:04:00 [facility] PHOSPHORUS 2023-03-29 08:41:00 [facility] MAGNESIUM 2023-03-29 08:41:00 [facility] BASIC METABOLIC PANEL 2023-03-29 08:41:00 Ashwin Fried [facility] (NA, K, CL, CO2, GLUCOSE, [facility] BUN, CREATININE, CA) POCT GLUCOSE (AUTOMATED) 2023-03-29 04:36:00 Luciano L[facility]og [facility] PO[facility]UCOSE (AUTOMATED) 2023-03-28 23:25:00 LickLuciano [facility] POCT GLUCOSE (AUTOMATED) 2023-03-28 18:39:00 LickLuciano Bella [facility] POCT GLUCOSE (AUTOMATED) 2023-03-28 13:50:00 LickLuciano Bella [facility] POCT GLUCOSE (AUTOMATED) 2023-03-28 11:25:00 LicLuciano garcia [facility] POCT GLUCOSE (AUTOMATED) 2023-03-28 10:54:00 LickLuciano versity [facility] MAGNESIUM 2023-03-28 10:34:00 [facility] BASIC METABOLIC PANEL 2023-03-28 10:34:00 [facility] (NA, K, CL, CO2, GLUCOSE, [facility] dical Branch BUN, CREATININE, CA) CBC WITH DIFF 2023-03-28 10:34:00 [facility] HB ABO GROUPING 2023-03-28 10:34:00 [facility] POCT GLUCOSE (AUTOMATED) 2023-03-28 10:31:00 Luciano Long [facility] POCT GLUCOSE (AUTOMATED) 2023-03-28 04:53:00 [facility] PO[facility]UCOSE (AUTOMATED) 2023-03-28 01:50:00 [facility] POCT GLUCOSE (AUTOMATED) 2023-03-27 22:44:00 LicLuciano garcia [facility] POCT GLUCOSE (AUTOMATED) 2023-03-27 17:10:00 LicLuciano garcia [facility] POCT GLUCOSE (AUTOMATED) 2023-03-27 14:45:00 LickLuciano versity [facility] PHOSPHORUS 2023-03-27 10:04:00 Corky Ashwin [facility] MAGNESIUM 2023-03-27 10:04:00 [facility] BASIC METABOLIC PANEL 2023-03-27 10:04:00 [facility] (NA, K, CL, CO2, GLUCOSE, [facility] BUN, CREATININE, CA) CBC WITH DIFF 2023-03-27 10:04:00 [facility] POCT GLUCOSE (AUTOMATED) 2023-03-27 05:08:00 LickLuciano Uni [facility] POCT GLUCOSE (AUTOMATED) 2023-03-27 02:00:00 LickLuciano Bella versity [facility] POCT GLUCOSE (AUTOMATED) 2023-03-26 22:34:00 LickLuciano Uni [facility] PO[facility] GLUCOSE (AUTOMATED) 2023-03-26 16:52:00 LickLuciano Bella [facility] POCT GLUCOSE (AUTOMATED) 2023-03-26 16:52:00 LickLuciano Bella [facility] POCT GLUCOSE (AUTOMATED) 2023-03-26 12:55:00 LickLuciano Uni versity [facility] POCT GLUCOSE (AUTOMATED) 2023-03-26 12:55:00 LickLuciano Bella versity [facility] PHOSPHORUS 2023-03-26 09:44:00 [facility] MAGNESIUM 2023-03-26 09:44:00 [facility] BASIC METABOLIC PANEL 2023-03-26 09:44:00 [facility] (NA, K, CL, CO2, GLUCOSE, [facility] BUN, CREATININE, CA) CBC WITH DIFF 2023-03-26 09:44:00 [facility] PHOSPHORUS 2023-03-26 09:44:00 [facility] MAGNESIUM 2023-03-26 09:44:00 [facility] BASIC METABOLIC PANEL 2023-03-26 09:44:00 [facility] (NA, K, CL, CO2, GLUCOSE, [facility] BUN, CREATININE, CA) CBC WITH DIFF 2023-03-26 09:44:00 [facility] o f [facility] POCT GLUCOSE (AUTOMATED) 2023-03-26 09:42:00 Lick, Luciano Uni versity of [facility] POCT GLUCOSE (AUTOMATED) 2023-03-26 09:42:00 Lick, Luciano Uni versity of [facility] POCT GLUCOSE (AUTOMATED) 2023-03-26 01:03:00 Lick, Luciano Uni versity of [facility] POCT GLUCOSE (AUTOMATED) 2023-03-26 01:03:00 Lick, Luciano Uni versity of [facility] POCT GLUCOSE (AUTOMATED) 2023-03-25 21:57:00 Lick, Luciano Uni versity of [facility] POCT GLUCOSE (AUTOMATED) 2023-03-25 21:57:00 LickLuciano Uni versity of [facility] POCT GLUCOSE (AUTOMATED) 2023-03-25 20:36:00 Lick, Luciano Uni versity of [facility] POCT GLUCOSE (AUTOMATED) 2023-03-25 20:36:00 LickLuciano Uni versity of [facility] FL TIME OR 2023-03-25 18:50:00 [facility] (NON-REPORTABLE) [facility] FL TIME OR 2023-03-25 18:50:00 [facility] (NON-REPORTABLE) [facility] ARTERIOGRAM 2023-03-25 17:22:00 Heaven [facility] o f [facility] POCT GLUCOSE (AUTOMATED) 2023-03-25 17:01:00 LickLuciano Uni versity of [facility] POCT GLUCOSE (AUTOMATED) 2023-03-25 17:01:00 LickLuciano Uni versity of [facility] POCT GLUCOSE (AUTOMATED) 2023-03-25 16:25:00 LickLuciano Uni versity of [facility] POCT GLUCOSE (AUTOMATED) 2023-03-25 16:25:00 Lick, Luciano Uni [facility] MAGNESIUM 2023-03-25 10:41:00 [facility] BASIC METABOLIC PANEL 2023-03-25 10:41:00 Felipe Edwards [facility] (NA, K, CL, CO2, GLUCOSE, [facility] [place] dical Branch BUN, CREATININE, CA) CBC WITH DIFF 2023-03-25 10:41:00 [facility] MAGNESIUM 2023-03-25 10:41:00 [facility] BASIC METABOLIC PANEL 2023-03-25 10:41:00 Felipe Edwards [facility] (NA, K, CL, CO2, GLUCOSE, [facility] [place] dical [facility] BUN, CREATININE, CA) CBC WITH DIFF 2023-03-25 10:41:00 Felipe Edwards [facility] POCT GLUCOSE (AUTOMATED) 2023-03-25 10:37:00 [facility] PO[facility] GLUCOSE (AUTOMATED) 2023-03-25 10:37:00 Luciano Long [facility] POCT GLUCOSE (AUTOMATED) 2023-03-25 05:17:00 [facility] POCT GLUCOSE (AUTOMATED) 2023-03-25 05:17:00 [facility] PO[facility] GLUCOSE (AUTOMATED) 2023-03-25 00:38:00 Luciano Long versity of [facility] POCT GLUCOSE (AUTOMATED) 2023-03-25 00:38:00 Luciano Long versity of [facility] POCT GLUCOSE (AUTOMATED) 2023-03-24 21:44:00 Luciano Long versity of [facility] POCT GLUCOSE (AUTOMATED) 2023-03-24 21:44:00 Luciano Long versity of [facility] POCT GLUCOSE (AUTOMATED) 2023-03-24 16:48:00 Luciano Long versity of [facility] POCT GLUCOSE (AUTOMATED) 2023-03-24 16:48:00 LicLuciano garcia [facility] POCT GLUCOSE (AUTOMATED) 2023-03-24 11:47:00 LicLuciano garcia [facility] POCT GLUCOSE (AUTOMATED) 2023-03-24 11:47:00 Luciano Long Bella [facility] POCT GLUCOSE (AUTOMATED) 2023-03-24 11:08:00 LickLuciano [facility] POCT GLUCOSE (AUTOMATED) 2023-03-24 11:08:00 LickLuciano [facility] MAGNESIUM 2023-03-24 10:32:00 [facility] BASIC METABOLIC PANEL 2023-03-24 10:32:00 Felipe Edwards [facility] (NA, K, CL, CO2, GLUCOSE, [facility] dical Branch BUN, CREATININE, CA) CBC WITH DIFF 2023-03-24 10:32:00 [facility] MAGNESIUM 2023-03-24 10:32:00 [facility] BASIC METABOLIC PANEL 2023-03-24 10:32:00 Felipe Edwards [facility] (NA, K, CL, CO2, GLUCOSE, [facility] dical Branch BUN, CREATININE, CA) CBC WITH DIFF 2023-03-24 10:32:00 [facility] PO[facility] GLUCOSE (AUTOMATED) 2023-03-24 10:31:00 Luciano Long [facility] POCT GLUCOSE (AUTOMATED) 2023-03-24 10:31:00 Luciano Long [facility] POCT GLUCOSE (AUTOMATED) 2023-03-24 05:33:00 Luciano Long [facility] POCT GLUCOSE (AUTOMATED) 2023-03-24 05:33:00 LicLuciano garcia [facility] POCT GLUCOSE (AUTOMATED) 2023-03-24 00:40:00 Luciano Long [facility] POCT GLUCOSE (AUTOMATED) 2023-03-24 00:40:00 Luciano Long [facility] POCT GLUCOSE (AUTOMATED) 2023-03-23 21:51:00 Luciano Long [facility] POCT GLUCOSE (AUTOMATED) 2023-03-23 21:51:00 Luciano Long [facility] CBC WITHOUT DIFF 2023-03-23 20:03:00 Felipe Edwards [facility] CBC WITHOUT DIFF 2023-03-23 20:03:00 Felipe Edwards [facility] ch PREPARE PACKED RBC 2023-03-23 15:45:46 [facility] 2023-03-23 15:45:46 [facility] PO[facility]SE (AUTOMATED) 2023-03-23 13:03:00 Luciano Long [facility] POCT GLUCOSE (AUTOMATED) 2023-03-23 13:03:00 Luciano Long [facility] MAGNESIUM 2023-03-23 10:13:00 [facility] BASIC METABOLIC PANEL 2023-03-23 10:13:00 [facility] (NA, K, CL, CO2, GLUCOSE, [facility] BUN, CREATININE, CA) CBC WITH DIFF 2023-03-23 10:13:00 [facility] HB ABO GROUPING 2023-03-23 10:13:00 [facility] MAGNESIUM 2023-03-23 10:13:00 [facility] PANEL 2023-03-23 10:13:00 [facility] (NA, K, CL, CO2, GLUCOSE, [facility] BUN, CREATININE, CA) CBC WITH DIFF 2023-03-23 10:13:00 [facility] HB ABO GROUPING 2023-03-23 10:13:00 [facility] o f [facility] POCT GLUCOSE (AUTOMATED) 2023-03-23 10:06:00 Luciano Long Uni versity of [facility] POCT GLUCOSE (AUTOMATED) 2023-03-23 10:06:00 LickLuciano Uni versity of [facility] POCT GLUCOSE (AUTOMATED) 2023-03-23 05:52:00 LickLuciano Uni versity of [facility] POCT GLUCOSE (AUTOMATED) 2023-03-23 05:52:00 LicLuciano garcia versity of [facility] POCT GLUCOSE (AUTOMATED) 2023-03-23 01:31:00 Luciano Long versity of [facility] POCT GLUCOSE (AUTOMATED) 2023-03-23 01:31:00 Luciano Long versity of [facility] POCT GLUCOSE (AUTOMATED) 2023-03-22 23:27:00 LickLuciano versity of [facility] POCT GLUCOSE (AUTOMATED) 2023-03-22 23:27:00 Luciano Long versity [facility] BASIC METABOLIC PANEL 2023-03-22 18:09:00 [facility] (NA, K, CL, CO2, GLUCOSE, [facility]ek[facility] dical Branch BUN, CREATININE, CA) BASIC METABOLIC PANEL 2023-03-22 18:09:00 [facility] (NA, K, CL, CO2, GLUCOSE, Beka Tanmay Me dical Branch BUN, CREATININE, CA) POCT GLUCOSE (AUTOMATED) 2023-03-22 18:08:00 Luciano Long Uni versity of [facility] POCT GLUCOSE (AUTOMATED) 2023-03-22 18:08:00 Luciano Long versity of [facility] POCT GLUCOSE (AUTOMATED) 2023-03-22 13:38:00 Luciano Long Uni versity of [facility] POCT GLUCOSE (AUTOMATED) 2023-03-22 13:38:00 Lick, Luciano Uni [facility] POCT GLUCOSE (AUTOMATED) 2023-03-22 08:05:00 Lick, Luciano [facility] POCT GLUCOSE (AUTOMATED) 2023-03-22 08:05:00 Lick, Luciano Uni [facility] POCT GLUCOSE (AUTOMATED) 2023-03-22 05:13:00 Lick, Luciano Uni [facility] POCT GLUCOSE (AUTOMATED) 2023-03-22 05:13:00 Lick, Luciano [facility] POCT GLUCOSE (AUTOMATED) 2023-03-22 01:59:00 Lick, Luicano [facility] POCT GLUCOSE (AUTOMATED) 2023-03-22 01:59:00 Lick, Luciano [facility] POCT GLUCOSE (AUTOMATED) 2023-03-21 21:28:00 Lick, Luciano Uni [facility] POCT GLUCOSE (AUTOMATED) 2023-03-21 21:28:00 Lick, Luciano [facility] POCT GLUCOSE (AUTOMATED) 2023-03-21 17:34:00 Lick, Luciano [facility] POCT GLUCOSE (AUTOMATED) 2023-03-21 17:34:00 Lick, Luciano Uni [facility] POCT GLUCOSE (AUTOMATED) 2023-03-21 15:07:00 Lick, Luciano [facility] POCT GLUCOSE (AUTOMATED) 2023-03-21 15:07:00 Lick, Luciano Uni [facility] POCT GLUCOSE (AUTOMATED) 2023-03-21 12:48:00 Lick, Luciano [facility] POCT GLUCOSE (AUTOMATED) 2023-03-21 12:48:00 Lick, Luciano [facility] POCT GLUCOSE (AUTOMATED) 2023-03-21 09:55:00 Lick, Luciano [facility] POCT GLUCOSE (AUTOMATED) 2023-03-21 09:55:00 Lick, Luciano [facility] POCT GLUCOSE (AUTOMATED) 2023-03-21 05:20:00 Lick, Luciano [facility] POCT GLUCOSE (AUTOMATED) 2023-03-21 05:20:00 Lick, Luicano Uni versity of [facility] POCT GLUCOSE (AUTOMATED) 2023-03-21 01:28:00 Lick, Luciano Blanco versity of [facility] POCT GLUCOSE (AUTOMATED) 2023-03-21 01:28:00 Lick, Luciano Blanco versity of [facility] POCT GLUCOSE (AUTOMATED) 2023-03-20 22:10:00 Lick, Luciano Blanco versity of [facility] POCT GLUCOSE (AUTOMATED) 2023-03-20 22:10:00 Lick, Luciano Blanco versity of [facility] POCT GLUCOSE (AUTOMATED) 2023-03-20 17:57:00 Lick, Luciano Blanco versity of [facility] POCT GLUCOSE (AUTOMATED) 2023-03-20 17:57:00 Lick, Luciano Blanco versity of [facility] POCT GLUCOSE (AUTOMATED) 2023-03-20 12:50:00 Lick, Luciano Blanco versity of [facility] POCT GLUCOSE (AUTOMATED) 2023-03-20 12:50:00 Lick, Luciano Blanco versity of [facility] POCT GLUCOSE (AUTOMATED) 2023-03-20 12:50:00 Lick, Luciano Blanco [facility] BASIC METABOLIC PANEL 2023-03-20 09:01:00 Corky [facility] (NA, K, CL, CO2, GLUCOSE, [facility] BUN, CREATININE, CA) MAGNESIUM 2023-03-20 09:01:00 [facility] 2023-03-20 09:01:00 [facility] 2023-03-20 09:01:00 [facility] MAG[facility] 2023-03-20 09:01:00 [facility] BASIC METABOLIC PANEL 2023-03-20 09:01:00 [facility] (NA, K, CL, CO2, GLUCOSE, [facility] BUN, CREATININE, CA) PHOSPHORUS 2023-03-20 09:01:00 [facility] MAG[facility]UM 2023-03-20 09:01:00 [facility]y [facility] BASIC METABOLIC PANEL 2023-03-20 09:01:00 Ashwin Fried [facility] (NA, K, CL, CO2, GLUCOSE, [facility] BUN, CREATININE, CA) POCT GLUCOSE (AUTOMATED) 2023-03-20 08:59:00 LicLuciano garcia [facility] POCT GLUCOSE (AUTOMATED) 2023-03-20 08:59:00 LickLuciano [facility] POCT GLUCOSE (AUTOMATED) 2023-03-20 08:59:00 LickLuciano [facility] POCT GLUCOSE (AUTOMATED) 2023-03-20 05:03:00 Luciano Long [facility] POCT GLUCOSE (AUTOMATED) 2023-03-20 05:03:00 LicLuciano garcia [facility] POCT GLUCOSE (AUTOMATED) 2023-03-20 05:03:00 Luciano Long Uni versity [facility] LOWER EXTREMITY ARTERIAL 2023-03-19 17:24:[address] [facility] DUPLEX BILATERAL - BY A Medical Br anch VASCULAR LAB LOWER EXTREMITY ARTERIAL 2023-03-19 17:24:32 Eva Chan n [facility] DUPLEX BILATERAL - BY A [facility] VASCULAR LAB JYOTI MULTI LEVEL - BY 2023-03-19 17:24:25 Marianne [facility] [place] V[facility]ULAR LAB A [facility] JYOTI MULTI LEVEL - BY 2023-03-19 17:24:25 Marianne [facility] [place] VASCULAR LAB A [facility] POCT GLUCOSE (AUTOMATED) 2023-03-19 16:43:00 LicLuciano garcia [facility] POCT GLUCOSE (AUTOMATED) 2023-03-19 16:43:00 Luciano Long [facility] POCT GLUCOSE (AUTOMATED) 2023-03-19 16:43:00 LicLuciano garcia [facility] POCT GLUCOSE (AUTOMATED) 2023-03-19 14:24:00 Luciano Long [facility] POCT GLUCOSE (AUTOMATED) 2023-03-19 14:24:00 Licjose Luciano Blanco [facility] POCT GLUCOSE (AUTOMATED) 2023-03-19 14:24:00 Teresajose Luciano Blanco [facility] POCT GLUCOSE (AUTOMATED) 2023-03-19 09:29:00 Teresajose Luciano Blanco [facility] POCT GLUCOSE (AUTOMATED) 2023-03-19 09:29:00 Licjose Luciano Blanco [facility] POCT GLUCOSE (AUTOMATED) 2023-03-19 09:29:00 Licjose Luciano Blanco [facility] BASIC METABOLIC PANEL 2023-03-19 09:27:00 [facility] (NA, K, CL, CO2, GLUCOSE, [facility] BUN, CREATININE, CA) MAGNESIUM 2023-03-19 09:27:00 [facility] MAGNESIUM 2023-03-19 09:27:00 [facility] BASIC METABOLIC PANEL 2023-03-19 09:27:00 [facility] (NA, K, CL, CO2, GLUCOSE, [facility] BUN, CREATININE, CA) MAGNESIUM 2023-03-19 09:27:00 [facility] BASIC METABOLIC PANEL 2023-03-19 09:27:00 [facility] (NA, K, CL, CO2, GLUCOSE, [facility] BUN, CREATININE, CA) POCT GLUCOSE (AUTOMATED) 2023-03-19 01:31:00 Luciano Long Bella [facility] POCT GLUCOSE (AUTOMATED) 2023-03-19 01:31:00 Berhane Luciano Blanco [facility] POCT GLUCOSE (AUTOMATED) 2023-03-19 01:31:00 Luciano Long [facility] XR FOOT 3+ VW BILATERAL 2023-03-19 01:25:00 Marianne Chan [facility] XR FOOT 3+ VW BILATERAL 2023-03-19 01:25:00 Marianne Chan [facility] XR FOOT 3+ VW BILATERAL 2023-03-19 01:25:00 Marianne Chan [facility] POCT GLUCOSE (AUTOMATED) 2023-03-18 13:33:00 Luciano Long [facility] POCT GLUCOSE (AUTOMATED) 2023-03-18 13:33:00 LicLuciano garcia [facility] POCT GLUCOSE (AUTOMATED) 2023-03-18 13:33:00 LickLuciano [facility] BASIC METABOLIC PANEL 2023-03-18 09:41:00 [facility] (NA, K, CL, CO2, GLUCOSE, [facility] BUN, CREATININE, CA) MAGNESIUM 2023-03-18 09:41:00 [facility] CBC WITH DIFF 2023-03-18 09:41:00 [facility] PHOSPHORUS 2023-03-18 09:41:00 [facility] PH[facility] 2023-03-18 09:41:00 [facility] MAGNESIUM 2023-03-18 09:41:00 [facility] BASIC METABOLIC PANEL 2023-03-18 09:41:00 [facility] (NA, K, CL, CO2, GLUCOSE, [facility] [place] [facility] BUN, CREATININE, CA) CBC WITH DIFF 2023-03-18 09:41:00 [facility] PH[facility]US 2023-03-18 09:41:00 [facility] MAGNESIUM 2023-03-18 09:41:00 [facility] BASIC METABOLIC PANEL 2023-03-18 09:41:00 Felipe Edwards [facility] (NA, K, CL, CO2, GLUCOSE, [facility] dical Branch BUN, CREATININE, CA) CBC WITH DIFF 2023-03-18 09:41:00 [facility] POCT GLUCOSE (AUTOMATED) 2023-03-18 09:38:00 Lick, Luciano [facility] POCT GLUCOSE (AUTOMATED) 2023-03-18 09:38:00 Lick, Luciano [facility] POCT GLUCOSE (AUTOMATED) 2023-03-18 09:38:00 Lick, Luciano [facility] POCT GLUCOSE (AUTOMATED) 2023-03-18 04:39:00 Lick, Luciano [facility] POCT GLUCOSE (AUTOMATED) 2023-03-18 04:39:00 LickLuciano [facility] POCT GLUCOSE (AUTOMATED) 2023-03-18 04:39:00 Lick, Luciano [facility] POCT GLUCOSE (AUTOMATED) 2023-03-18 01:42:00 LickLuciano [facility] POCT GLUCOSE (AUTOMATED) 2023-03-18 01:42:00 LickLuciano [facility] POCT GLUCOSE (AUTOMATED) 2023-03-18 01:42:00 LickLuciano [facility] POCT GLUCOSE (AUTOMATED) 2023-03-17 22:19:00 LickLuciano [facility] POCT GLUCOSE (AUTOMATED) 2023-03-17 22:19:00 LickLuciano [facility] POCT GLUCOSE (AUTOMATED) 2023-03-17 22:19:00 LickLuciano [facility] POCT GLUCOSE (AUTOMATED) 2023-03-17 17:31:00 Lick, Luciano [facility] POCT GLUCOSE (AUTOMATED) 2023-03-17 17:31:00 LickLuciano [facility] POCT GLUCOSE (AUTOMATED) 2023-03-17 17:31:00 Luciano Long [facility] BASIC METABOLIC PANEL 2023-03-17 15:14:00 [facility] (NA, K, CL, CO2, GLUCOSE, [facility] BUN, CREATININE, CA) BASIC METABOLIC PANEL 2023-03-17 15:14:00 [facility] (NA, K, CL, CO2, GLUCOSE, [facility] BUN, CREATININE, CA) BASIC METABOLIC PANEL 2023-03-17 15:14:00 [facility] (NA, K, CL, CO2, GLUCOSE, [facility] BUN, CREATININE, CA) POCT GLUCOSE (AUTOMATED) 2023-03-17 15:13:00 Luciano Long [facility] POCT GLUCOSE (AUTOMATED) 2023-03-17 15:13:00 LicLuciano garcia [facility] POCT GLUCOSE (AUTOMATED) 2023-03-17 15:13:00 Luciano Long [facility] CBC WITH DIFF 2023-03-17 09:37:00 [facility] CBC WITH DIFF 2023-03-17 09:37:00 [facility] CBC WITH DIFF 2023-03-17 09:37:00 [facility] POCT GLUCOSE (AUTOMATED) 2023-03-17 09:35:00 LicLuciano garcia [facility] POCT GLUCOSE (AUTOMATED) 2023-03-17 09:35:00 Luciano Long [facility] POCT GLUCOSE (AUTOMATED) 2023-03-17 09:35:00 Luciano Long [facility] POCT GLUCOSE (AUTOMATED) 2023-03-17 04:36:00 LickLuciano [facility] POCT GLUCOSE (AUTOMATED) 2023-03-17 04:36:00 Luciano Long [facility] POCT GLUCOSE (AUTOMATED) 2023-03-17 04:36:00 Lick, Luciano Blanco [facility] POCT GLUCOSE (AUTOMATED) 2023-03-17 01:24:00 LickLuciano [facility]The [facility] POCT GLUCOSE (AUTOMATED) 2023-03-17 01:24:00 Lick, Luciano [facility]anco [facility] POCT GLUCOSE (AUTOMATED) 2023-03-17 01:24:00 Lick, Luciano [facility] POCT GLUCOSE (AUTOMATED) 2023-03-16 16:24:00 Lick, Luciano [facility] POCT GLUCOSE (AUTOMATED) 2023-03-16 16:24:00 Lick, Luciano Blanco [facility] POCT GLUCOSE (AUTOMATED) 2023-03-16 16:24:00 LicLuciano garcia [facility] BASIC METABOLIC PANEL 2023-03-16 11:16:00 [facility]y [facility] (NA, K, CL, CO2, GLUCOSE, [facility] BUN, CREATININE, CA) MAGNESIUM 2023-03-16 11:16:00 [facility] 2023-03-16 11:16:00 [facility] PH[facility] 2023-03-16 11:16:00 Corky [facility] MAGNESIUM 2023-03-16 11:16:00 [facility] BASIC METABOLIC PANEL 2023-03-16 11:16:00 [facility] (NA, K, CL, CO2, GLUCOSE, [facility] BUN, CREATININE, CA) PHOSPHORUS 2023-03-16 11:16:00 Corky [facility] MAGNESIUM 2023-03-16 11:16:00 [facility] BASIC METABOLIC PANEL 2023-03-16 11:16:00 [facility] (NA, K, CL, CO2, GLUCOSE, [facility] BUN, CREATININE, CA) POCT GLUCOSE (AUTOMATED) 2023-03-16 11:14:00 Lick, Luciano Uni versity of [facility] POCT GLUCOSE (AUTOMATED) 2023-03-16 11:14:00 Lick, Luciano Uni versity of [facility] POCT GLUCOSE (AUTOMATED) 2023-03-16 11:14:00 Lick, Luciano Uni versity of [facility] POCT GLUCOSE (AUTOMATED) 2023-03-16 05:20:00 Lick, Luciano Uni versity of [facility] POCT GLUCOSE (AUTOMATED) 2023-03-16 05:20:00 Lick, Luciano Uni versity of [facility] POCT GLUCOSE (AUTOMATED) 2023-03-16 05:20:00 Lick, Luciano Uni versity of [facility] POCT GLUCOSE (AUTOMATED) 2023-03-16 00:55:00 Lick, Luciano Uni versity of [facility] POCT GLUCOSE (AUTOMATED) 2023-03-16 00:55:00 Lick, Luciano Uni versity of [facility] POCT GLUCOSE (AUTOMATED) 2023-03-16 00:55:00 Lick, Luciano Uni versity of [facility] POCT GLUCOSE (AUTOMATED) 2023-03-15 23:14:00 Lick, Luciano [facility] POCT GLUCOSE (AUTOMATED) 2023-03-15 23:14:00 Lick, Luciano Uni versity of [facility] POCT GLUCOSE (AUTOMATED) 2023-03-15 23:14:00 Lick, Luciano Uni versity of [facility] POCT GLUCOSE (AUTOMATED) 2023-03-15 17:23:00 Lick, Luciano Uni versity of [facility] POCT GLUCOSE (AUTOMATED) 2023-03-15 17:23:00 Lick, Luciano [facility] POCT GLUCOSE (AUTOMATED) 2023-03-15 17:23:00 Lick, Luciano Uni versity of [facility] POCT GLUCOSE (AUTOMATED) 2023-03-15 09:11:00 Lick, Luciano Uni versity of [facility] POCT GLUCOSE (AUTOMATED) 2023-03-15 09:11:00 Lick, Luciano [facility] POCT GLUCOSE (AUTOMATED) 2023-03-15 09:11:00 Lick, Luciano [facility] POCT GLUCOSE (AUTOMATED) 2023-03-15 05:13:00 Lick, Luciano [facility] POCT GLUCOSE (AUTOMATED) 2023-03-15 05:13:00 Lick, Luciano [facility] POCT GLUCOSE (AUTOMATED) 2023-03-15 05:13:00 Lick, Luciano [facility] POCT GLUCOSE (AUTOMATED) 2023-03-15 00:51:00 Lick, Luciano Uni versity of [facility] POCT GLUCOSE (AUTOMATED) 2023-03-15 00:51:00 Lick, Luciano Uni versity of [facility] POCT GLUCOSE (AUTOMATED) 2023-03-15 00:51:00 Lick, Luciano [facility] POCT GLUCOSE (AUTOMATED) 2023-03-14 17:58:00 Lick, Luciano [facility] POCT GLUCOSE (AUTOMATED) 2023-03-14 17:58:00 Lick, Luciano Uni versity of [facility] POCT GLUCOSE (AUTOMATED) 2023-03-14 17:58:00 Lick, Luciano [facility] POCT GLUCOSE (AUTOMATED) 2023-03-14 13:48:00 Lick, Luciano [facility] POCT GLUCOSE (AUTOMATED) 2023-03-14 13:48:00 Lick, Luciano [facility] POCT GLUCOSE (AUTOMATED) 2023-03-14 13:48:00 Lick, Luciano Bella [facility] BASIC METABOLIC PANEL 2023-03-14 08:44:00 [facility] (NA, K, CL, CO2, GLUCOSE, [facility] dical Branch BUN, CREATININE, CA) CBC WITH DIFF 2023-03-14 08:44:00 [facility] BASIC METABOLIC PANEL 2023-03-14 08:44:00 [facility] (NA, K, CL, CO2, GLUCOSE, [facility] BUN, CREATININE, CA) CBC WITH DIFF 2023-03-14 08:44:00 [facility] BASIC METABOLIC PANEL 2023-03-14 08:44:00 Felipe Edwards [facility] (NA, K, CL, CO2, GLUCOSE, [facility] BUN, CREATININE, CA) CBC WITH DIFF 2023-03-14 08:44:00 [facility] POCT GLUCOSE (AUTOMATED) 2023-03-14 04:53:00 Lick, Luciano [facility] POCT GLUCOSE (AUTOMATED) 2023-03-14 04:53:00 Lick, Luciano [facility] POCT GLUCOSE (AUTOMATED) 2023-03-14 04:53:00 LickLuciano [facility] POCT GLUCOSE (AUTOMATED) 2023-03-14 02:08:[address] L[address]Luc[address] [facility] POCT GLUCOSE (AUTOMATED) 2023-03-14 02:08:00 Lick, Luciano Uni versity of [facility] POCT GLUCOSE (AUTOMATED) 2023-03-14 02:08:00 LickLuciano [facility] POCT GLUCOSE (AUTOMATED) 2023-03-13 21:55:00 LickLuciano [facility] POCT GLUCOSE (AUTOMATED) 2023-03-13 21:55:00 LickLuciano [facility] POCT GLUCOSE (AUTOMATED) 2023-03-13 21:55:00 LickLuciano [facility] POCT GLUCOSE (AUTOMATED) 2023-03-13 17:35:00 LickLuciano [facility] POCT GLUCOSE (AUTOMATED) 2023-03-13 17:35:00 Lick, Luciano [facility] POCT GLUCOSE (AUTOMATED) 2023-03-13 17:35:00 LickLuciano [facility] POCT GLUCOSE (AUTOMATED) 2023-03-13 14:48:00 Lick, Luciano Uni [facility]ity [facility] POCT GLUCOSE (AUTOMATED) 2023-03-13 14:48:00 Luciano Long [facility] POCT GLUCOSE (AUTOMATED) 2023-03-13 14:48:00 Luciano Long [facility] XR CHEST 1 VW 2023-03-13 10:35:00 Aminata [facility] XR CHEST 1 VW 2023-03-13 10:35:00 Aminata [facility] XR CHEST 1 VW 2023-03-13 10:35:00 Aminata [facility] CBC WITH DIFF 2023-03-13 07:43:00 Bettie [facility] BASIC METABOLIC PANEL 2023-03-13 07:43:00 Bettie [facility] (NA, K, CL, CO2, GLUCOSE, [facility] BUN, CREATININE, CA) MAGNESIUM 2023-03-13 07:43:00 Bettie [facility] PHOSPHORUS 2023-03-13 07:43:00 Bettie, [facility] PHOSPHORUS 2023-03-13 07:43:00 Bettie [facility] MAGNESIUM 2023-03-13 07:43:00 Bettie [facility] BASIC METABOLIC PANEL 2023-03-13 07:43:00 Bettie [facility] (NA, K, CL, CO2, GLUCOSE, [facility] BUN, CREATININE, CA) CBC WITH DIFF 2023-03-13 07:43:00 Bettie, [facility] PHOSPHORUS 2023-03-13 07:43:00 Bettie, [facility] MAGNESIUM 2023-03-13 07:43:00 Bettie, [facility] BASIC METABOLIC PANEL 2023-03-13 07:43:00 Bettie [facility] (NA, K, CL, CO2, GLUCOSE, [facility] BUN, CREATININE, CA) CBC WITH DIFF 2023-03-13 07:43:00 Bettie [facility] POCT GLUCOSE (AUTOMATED) 2023-03-13 04:15:00 Lick, Luciano [facility] POCT GLUCOSE (AUTOMATED) 2023-03-13 04:15:00 Lick, Luciano [facility] POCT GLUCOSE (AUTOMATED) 2023-03-13 04:15:00 Lick, Luciano [facility] POCT GLUCOSE (AUTOMATED) 2023-03-13 01:32:00 Lick, Luciano [facility] POCT GLUCOSE (AUTOMATED) 2023-03-13 01:32:00 Lick, Luciano Uni versity of [facility] POCT GLUCOSE (AUTOMATED) 2023-03-13 01:32:00 Lick, Luciano Uni versity of [facility] POCT GLUCOSE (AUTOMATED) 2023-03-12 22:10:00 Lick, Luciano Uni versity of [facility] POCT GLUCOSE (AUTOMATED) 2023-03-12 22:10:00 Lick, Luciano Uni versity of [facility] POCT GLUCOSE (AUTOMATED) 2023-03-12 22:10:00 Lick, Luciano Uni versity of [facility] [place] MODIFIED BARIUM 2023-03-12 19:52:00 [facility] MODIFIED BARIUM 2023-03-12 19:52:00 [facility] ersity of [facility] [place] MODIFIED BARIUM 2023-03-12 19:52:00 [facility] POCT GLUCOSE (AUTOMATED) 2023-03-12 18:18:00 LickLuciano [facility] POCT GLUCOSE (AUTOMATED) 2023-03-12 18:18:00 Lick, Luciano Uni [facility]ity [facility] POCT GLUCOSE (AUTOMATED) 2023-03-12 18:18:00 Lick, Luciano [facility] POCT GLUCOSE (AUTOMATED) 2023-03-12 12:57:00 Lick, Luciano [facility] POCT GLUCOSE (AUTOMATED) 2023-03-12 12:57:00 Lick, Luciano [facility] POCT GLUCOSE (AUTOMATED) 2023-03-12 12:57:00 Luciaon Long [facility] CBC WITH DIFF 2023-03-12 08:47:00 DunmireChitra [facility] BASIC METABOLIC PANEL 2023-03-12 08:47:00 [facility]ireChitra [facility] (NA, K, CL, CO2, GLUCOSE, Medica l Branch BUN, CREATININE, CA) MAGNESIUM 2023-03-12 08:47:00 DunmireChitra [facility] PHOSPHORUS 2023-03-12 08:47:00 DunmireChitra [facility] CALCIUM 2023-03-12 08:47:00 [facility] CALCIUM 2023-03-12 08:47:00 [facility]-12 08:47:00 DunmireChitra [facility] MAGNESIUM 2023-03-12 08:47:00 DunmireChitra [facility] BASIC METABOLIC PANEL 2023-03-12 08:47:00 DunmireChitra [facility] (NA, K, CL, CO2, GLUCOSE, Medica l Branch BUN, CREATININE, CA) CBC WITH DIFF 2023-03-12 08:47:00 DunmireChitra [facility] CALCIUM 2023-03-12 08:47:00 [facility] 2023-03-12 08:47:00 DunmireChitra [facility] MAGNESIUM 2023-03-12 08:47:00 DunmireChitra [facility] BASIC METABOLIC PANEL 2023-03-12 08:47:00 DunmireChitra U niversity [facility] (NA, K, CL, CO2, GLUCOSE, Medica l Branch BUN, CREATININE, CA) CBC WITH DIFF 2023-03-12 08:47:00 DunmireChitra [facility] POCT GLUCOSE (AUTOMATED) 2023-03-12 08:44:00 Luciano Long [facility] POCT GLUCOSE (AUTOMATED) 2023-03-12 08:44:00 Lick, Luciano [facility] POCT GLUCOSE (AUTOMATED) 2023-03-12 08:44:00 Lick, Luciano [facility] POCT GLUCOSE (AUTOMATED) 2023-03-12 04:13:00 Lick, Luciano [facility] POCT GLUCOSE (AUTOMATED) 2023-03-12 04:13:00 Lick, Luciano [facility] POCT GLUCOSE (AUTOMATED) 2023-03-12 04:13:00 Lick, Luciano [facility] POCT GLUCOSE (AUTOMATED) 2023-03-12 01:45:00 Lick, Luciano [facility] POCT GLUCOSE (AUTOMATED) 2023-03-12 01:45:00 Lick, Luciano [facility] POCT GLUCOSE (AUTOMATED) 2023-03-12 01:45:00 Lick, Luciano [facility] POCT GLUCOSE (AUTOMATED) 2023-03-12 01:42:00 Lick, Luciano [facility] POCT GLUCOSE (AUTOMATED) 2023-03-12 01:42:00 Lick, Luciano [facility] POCT GLUCOSE (AUTOMATED) 2023-03-12 01:42:00 Lick, Luciano Uni versity of [facility] CBC WITH DIFF 2023-03-11 21:20:00 Dunm[place] Chitra [facility] ity of [facility] CBC WITH DIFF 2023-03-11 21:20:00 [place] Chitra Beverly [facility] CBC WITH DIFF 2023-03-11 21:20:00 [place] Chitra [facility] ity of [facility] POCT GLUCOSE (AUTOMATED) 2023-03-11 21:14:00 Lick, Luciano [facility] POCT GLUCOSE (AUTOMATED) 2023-03-11 21:14:00 Lick, Luciano [facility] POCT GLUCOSE (AUTOMATED) 2023-03-11 21:14:00 Lick, Luciano [facility] POCT GLUCOSE (AUTOMATED) 2023-03-11 17:46:00 Lick, Luciano [facility] POCT GLUCOSE (AUTOMATED) 2023-03-11 17:46:00 Luciano Long [facility] PO[facility]UCOSE (AUTOMATED) 2023-03-11 17:46:00 Luciano Long [facility] BLOOD CULTURE SCREEN 2023-03-11 14:50:00 Holt Emily [facility] it[facility] BLOOD CULTURE SCREEN 2023-03-11 14:50:00 Holt, Emily [facility] it[facility] BLOOD CULTURE SCREEN 2023-03-11 14:50:00 Holt, Emily [facility] BLOOD CULTURE SCREEN 2023-03-11 14:49:00 Holt, Emily [facility] BLOOD CULTURE SCREEN 2023-03-11 14:49:00 Holt, Emily [facility] it[facility] BLOOD CULTURE SCREEN 2023-03-11 14:49:00 Holt, Emily [facility] it[facility] POCT GLUCOSE (AUTOMATED) 2023-03-11 13:14:00 LicLuciano garcia [facility] POCT GLUCOSE (AUTOMATED) 2023-03-11 13:14:00 LickLuciano [facility] POCT GLUCOSE (AUTOMATED) 2023-03-11 13:14:00 [facility] PO[facility]SE (AUTOMATED) 2023-03-11 09:08:00 [facility]SE (AUTOMATED) 2023-03-11 09:08:00 LickLuciano [facility] POCT GLUCOSE (AUTOMATED) 2023-03-11 09:08:00 LickLuciano [facility] BASIC METABOLIC PANEL 2023-03-11 09:05:00 Emily Holt [facility] (NA, K, CL, CO2, GLUCOSE, Medica l Branch BUN, CREATININE, CA) CBC WITHOUT DIFF 2023-03-11 09:05:00 Bettie Harper [facility] MAGNESIUM 2023-03-11 09:05:00 [facility]-03-11 09:05:00 Teegarden, [facility] PHOSPHORUS 2023-03-11 09:05:[address] [facility] MAGNESIUM 2023-03-11 09:05:00 [place] [facility] BASIC METABOLIC PANEL 2023-03-11 09:05:00 [facility] ([facility], K, CL, CO2, GLUCOSE, Medica l Branch BUN, CREATININE, CA) CBC WITHOUT DIFF 2023-03-11 09:05:00 Bettie [facility] PHOSPHORUS 2023-03-11 09:05:[address] [facility] MAGNESIUM 2023-03-11 09:05:00 [place] [facility] BASIC METABOLIC PANEL 2023-03-11 09:05:00 Jonathon [facility] (NA, K, CL, CO2, GLUCOSE, Medica l Branch BUN, CREATININE, CA) CBC WITHOUT DIFF 2023-03-11 09:05:00 Bettie [facility] POCT GLUCOSE (AUTOMATED) 2023-03-11 05:48:00 Luciano Long [facility] POCT GLUCOSE (AUTOMATED) 2023-03-11 05:48:00 LicLuciano garcia [facility] POCT GLUCOSE (AUTOMATED) 2023-03-11 05:48:00 Luciano Long [facility] CBC WITHOUT DIFF 2023-03-11 01:21:00 Bettie [facility] CBC WITHOUT DIFF 2023-03-11 01:21:00 Bettie [facility] CBC WITHOUT DIFF 2023-03-11 01:21:00 Bettie [facility] POCT GLUCOSE (AUTOMATED) 2023-03-11 01:19:00 Luciano Long [facility] POCT GLUCOSE (AUTOMATED) 2023-03-11 01:19:00 LicLuciano garcia [facility] POCT GLUCOSE (AUTOMATED) 2023-03-11 01:19:00 LicLuciano garcia [facility] POCT GLUCOSE (AUTOMATED) 2023-03-10 22:01:00 Luciano Long [facility] POCT GLUCOSE (AUTOMATED) 2023-03-10 22:01:00 Luciano Long [facility] POCT GLUCOSE (AUTOMATED) 2023-03-10 22:01:00 Luciano Long [facility] PREPARE PACKED RBC 2023-03-10 19:23:48 Jonathon [facility] PREPARE PACKED RBC 2023-03-10 19:23:48 Jonathon [facility] PREPARE PACKED RBC 2023-03-10 19:23:48 Jonathon [facility] MAGNESIUM 2023-03-10 18:13:00 [facility]OL[facility] PANEL 2023-03-10 18:13:00 [facility] (NA, K, CL, CO2, GLUCOSE, Medica l Branch BUN, CREATININE, CA) HB ABO GROUPING 2023-03-10 18:13:00 Jonathon [facility] MAGNESIUM 2023-03-10 18:13:00 [facility] BASIC METABOLIC PANEL 2023-03-10 18:13:00 [facility] (NA, K, CL, CO2, GLUCOSE, Medica l Branch BUN, CREATININE, CA) HB ABO GROUPING 2023-03-10 18:13:00 Jonathon [facility] MAGNESIUM 2023-03-10 18:13[facility]00 [facility] 2023-03-10 18:13:00 [facility] (NA, K, CL, CO2, GLUCOSE, Medica l Branch BUN, CREATININE, CA) HB ABO GROUPING 2023-03-10 18:13:00 Jonathon [facility] POCT GLUCOSE (AUTOMATED) 2023-03-10 17:18:00 Luciano Long [facility] POCT GLUCOSE (AUTOMATED) 2023-03-10 17:18:00 Luciano Long [facility] POCT GLUCOSE (AUTOMATED) 2023-03-10 17:18:00 LickLuciano [facility] CBC WITHOUT DIFF 2023-03-10 17:14:00 Bettie, [facility] CBC WITHOUT DIFF 2023-03-10 17:14:00 Bettie, [facility] CBC WITHOUT DIFF 2023-03-10 17:14:00 Bettie [facility] POCT GLUCOSE (AUTOMATED) 2023-03-10 12:49:00 LickLuciano [facility] POCT GLUCOSE (AUTOMATED) 2023-03-10 12:49:00 LickLuciano Bella [facility] POCT GLUCOSE (AUTOMATED) 2023-03-10 12:49:00 Luciano Long [facility] XR CHEST 1 VW 2023-03-10 09:29:00 Aminata [facility] XR CHEST 1 VW 2023-03-10 09:29:[facility] 2023-03-10 09:29:[address] [facility] CBC WITHOUT DIFF 2023-03-10 08:41:00 [facility]ettie [facility] BASIC METABOLIC PANEL 2023-03-10 08:41:00 [facility] (NA, K, CL, CO2, GLUCOSE, Medica l Branch BUN, CREATININE, CA) BASIC METABOLIC PANEL 2023-03-10 08:41:00 [facility] (NA, K, CL, CO2, GLUCOSE, Medica l Branch BUN, CREATININE, CA) CBC WITHOUT DIFF 2023-03-10 08:41:00 Bettie [facility] BASIC METABOLIC PANEL 2023-03-10 08:41:00 [facility] (NA, K, CL, CO2, GLUCOSE, Medica l Branch BUN, CREATININE, CA) CBC WITHOUT DIFF 2023-03-10 08:41:00 Bettie [facility] POCT GLUCOSE (AUTOMATED) 2023-03-10 05:14:00 [facility]SE ([facility]OMATED) 2023-03-10 05:14:00 LicLuciano garcia [facility] PO[facility] GLUCOSE (AUTOMATED) 2023-03-10 05:14:00 Luciano Long [facility] TRANSFUSE PACKED RBC 2023-03-10 02:40:00 Bettie, [facility] TRANSFUSE PACKED RBC 2023-03-10 02:40:00 Bettie, [facility] TRANSFUSE PACKED RBC 2023-03-10 02:40:00 Bettie, [facility] PREPARE PACKED RBC 2023-03-10 02:33:25 Bettie, [facility] PREPARE PACKED RBC 2023-03-10 02:33:25 Bettie, [facility] PREPARE PACKED RBC 2023-03-10 02:33:25 Bettie, [facility] CBC WITHOUT DIFF 2023-03-10 01:43:00 Bettie, [facility] CBC WITHOUT DIFF 2023-03-10 01:43:00 Bettie, [facility] CBC WITHOUT DIFF 2023-03-10 01:43:00 Bettie, [facility] POCT GLUCOSE (AUTOMATED) 2023-03-10 01:06:00 LicLuciano [facility]arcia [facility] PO[facility]UCOSE (AUTOMATED) 2023-03-10 01:06:00 LicLuciano garcia versity [facility] POCT GLUCOSE (AUTOMATED) 2023-03-10 01:06:00 Luciano Long vers[facility] POCT GLUCOSE (AUTOMATED) 2023-03-09 21:47:00 Luciano Long [facility] POCT GLUCOSE (AUTOMATED) 2023-03-09 21:47:00 Luciano Long [facility] POCT GLUCOSE (AUTOMATED) 2023-03-09 21:47:00 [facility] CBC WITHOUT DIFF 2023-03-09 17:43:00 Bettie, [facility] CBC WITHOUT DIFF 2023-03-09 17:43:00 [facility]ie [facility] CBC WITHOUT DIFF 2023-03-09 17:43:00 [facility]ettie [facility] POCT GLUCOSE (AUTOMATED) 2023-03-09 17:22:00 Luciano Long [facility] POCT GLUCOSE (AUTOMATED) 2023-03-09 17:22:00 LicLuciano garcia [facility] POCT GLUCOSE (AUTOMATED) 2023-03-09 17:22:00 Luciano Long [facility] HEPATITIS B SURFACE 2023-03-09 14:04:00 Chance Pratt [facility] ANTIBODY [facility] HEPATITIS B SURFACE 2023-03-09 14:04:00 Chance Pratt [facility] ANTIBODY [facility] HEPATITIS B SURFACE 2023-03-09 14:04:[address] [facility] POCT GLUCOSE (AUTOMATED) 2023-03-09 14:01:00 Luciano Long [facility] POCT GLUCOSE (AUTOMATED) 2023-03-09 14:01:00 Luciano Long [facility] POCT GLUCOSE (AUTOMATED) 2023-03-09 14:01:00 Luciano Long [facility] BASIC METABOLIC PANEL 2023-03-09 09:29:00 Chitra Berkowitz [facility] (NA, K, CL, CO2, GLUCOSE, Medica l Branch BUN, CREATININE, CA) MAGNESIUM 2023-03-09 09:29:00 Chitra Berkowitz [facility] PHOSPHORUS 2023-03-09 09:29:00 Chitra Berkowitz [facility] CBC WITH DIFF 2023-03-09 09:29:00 Chitra Berkowitz [facility] AC PANEL 20 + LACTIC ACID 2023-03-09 09:29:00 Ghazal Sims [facility] HEPATITIS B SURFACE 2023-03-09 09:29:00 Chance Pratt [facility] ANTIGEN [facility] PHOSPHORUS 2023-03-09 09:29:00 DunmireChitra [facility] MAGNESIUM 2023-03-09 09:29:00 DunmireChitra [facility] BASIC METABOLIC PANEL 2023-03-09 09:29:00 Chitra Berkowitz [facility] (NA, K, CL, CO2, GLUCOSE, Medica l Branch BUN, CREATININE, CA) CBC WITH DIFF 2023-03-09 09:29:00 DunmireChitra [facility] HEPATITIS B SURFACE 2023-03-09 09:29:00 Chance Pratt [facility] ANTIGEN [facility] AC PANEL 20 + LACTIC ACID 2023-03-09 09:29:00 Ghazal Sims [facility] PHOSPHORUS 2023-03-09 09:29:00 DunmireChitra [facility] MAGNESIUM 2023-03-09 09:29:00 DunmireChitra [facility] BASIC METABOLIC PANEL 2023-03-09 09:29:00 Dunmire Chitra Mathise [facility] (NA, K, CL, CO2, GLUCOSE, Medica l Branch BUN, CREATININE, CA) CBC WITH DIFF 2023-03-09 09:29:00 DunmireChitra [facility] HEPATITIS B SURFACE 2023-03-09 09:29:00 Chance Pratt [facility] ANTIGEN [facility] AC PANEL 20 + LACTIC ACID 2023-03-09 09:29:00 Ghazal Sims [facility] POCT GLUCOSE (AUTOMATED) 2023-03-09 06:21:00 Luciano Long [facility] POCT GLUCOSE (AUTOMATED) 2023-03-09 06:21:00 Luciano Long [facility] POCT GLUCOSE (AUTOMATED) 2023-03-09 06:21:00 Luciano Long [facility] CBC WITH DIFF 2023-03-09 01:43:00 WooChitra [facility] BASIC METABOLIC PANEL 2023-03-09 01:43:00 Emily Holt [facility] (NA, K, CL, CO2, GLUCOSE, Medica l Branch BUN, CREATININE, CA) AC PANEL 20 + LACTIC ACID 2023-03-09 01:43:00 Levi MimiAnkit Un [facility] BASIC METABOLIC PANEL 2023-03-09 01:43:00 Emily Holt [facility] (NA, K, CL, CO2, GLUCOSE, Medica l Branch BUN, CREATININE, CA) CBC WITH DIFF 2023-03-09 01:43:00 WooChitra [facility] AC PANEL 20 + LACTIC ACID 2023-03-09 01:43:00 Ghazal Sims Un [facility] BASIC METABOLIC PANEL 2023-03-09 01:43:00 Emily Holt [facility] (NA, K, CL, CO2, GLUCOSE, Medica l Branch BUN, CREATININE, CA) CBC WITH DIFF 2023-03-09 01:43:00 [facility] + LACTIC ACID 2023-03-09 01:43:00 Levi MimiAnkit Un [facility] POCT GLUCOSE (AUTOMATED) 2023-03-09 01:42:00 LickLuciano [facility] POCT GLUCOSE (AUTOMATED) 2023-03-09 01:42:00 [facility]Luc[facility] POCT GLUCOSE (AUTOMATED) 2023-03-09 01:42:00 [facility]Luciano [facility] POCT GLUCOSE (AUTOMATED) 2023-03-08 21:52:00 L[facility]Luciano [facility] POCT GLUCOSE (AUTOMATED) 2023-03-08 21:52:00 L[facility]Luciano [facility] POCT GLUCOSE (AUTOMATED) 2023-03-08 21:52:00 LicLuciano garcia [facility] CBC WITH DIFF 2023-03-08 21:50:00 DunChitra juarez [facility] CBC WITH DIFF 2023-03-08 21:50:00 KennreChitra [facility] CBC WITH DIFF 2023-03-08 21:50:00 Chitra Berkowitz [facility] POCT GLUCOSE (AUTOMATED) 2023-03-08 13:36:00 Lick, Luciano [facility] POCT GLUCOSE (AUTOMATED) 2023-03-08 13:36:00 Lick, Luciano [facility] POCT GLUCOSE (AUTOMATED) 2023-03-08 13:36:00 Lick, Luciano [facility] CBC WITH DIFF 2023-03-08 13:21:00 Vu, [facility] CBC WITH DIFF 2023-03-08 13:21:00 Vu, [facility] CBC WITH DIFF 2023-03-08 13:21:00 Vu, [facility] POCT GLUCOSE (AUTOMATED) 2023-03-08 10:53:00 LickLuciano [facility] POCT GLUCOSE (AUTOMATED) 2023-03-08 10:53:00 Lick, Luciano [facility] POCT GLUCOSE (AUTOMATED) 2023-03-08 10:53:00 LickLuciano [facility] BASIC METABOLIC PANEL 2023-03-08 10:52:00 Jonathon [facility] (NA, K, CL, CO2, GLUCOSE, Medica l Branch BUN, CREATININE, CA) MAGNESIUM 2023-03-08 10:52:00 Jonathon [facility] PHOSPHORUS 2023-03-08 10:52:00 Jonathon [facility] PHOSPHORUS 2023-03-08 10:52:00 Jonathon [facility] MAGNESIUM 2023-03-08 10:52:00 Jonathon [facility] BASIC METABOLIC PANEL 2023-03-08 10:52:00 Jonathon [facility] (NA, K, CL, CO2, GLUCOSE, Medica l Branch BUN, CREATININE, CA) PHOSPHORUS 2023-03-08 10:52:00 Jonathon [facility] MAGNESIUM 2023-03-08 10:52:00 Jonathon [facility] BASIC METABOLIC PANEL 2023-03-08 10:52:00 Emily Holt [facility] (NA, K, CL, CO2, GLUCOSE, Medica l Branch BUN, CREATININE, CA) XR CHEST 1 VW 2023-03-08 09:11:00 [facility] XR CHEST 1 VW 2023-03-08 09:11:00 [facility] XR CHEST 1 VW 2023-03-08 09:11:00 [facility]AUTOMATED) 2023-03-08 05:51:00 LicLuciano garcia [facility] POCT GLUCOSE (AUTOMATED) 2023-03-08 05:51:00 LickLuciano [facility] POCT GLUCOSE (AUTOMATED) 2023-03-08 05:51:00 LickLuciano [facility] CBC WITH DIFF 2023-03-08 05:50:00 Vu, [facility] CBC WITH DIFF 2023-03-08 05:50:00 Vu [facility] CBC WITH DIFF 2023-03-08 05:50:00 Levi [facility] OCCULT (GUAIAC) BLOOD 2023-03-08 04:05:00 Vu [facility] OCCULT (GUAIAC) BLOOD 2023-03-08 04:05:00 Vu, [facility] OCCULT (GUAIAC) BLOOD 2023-03-08 04:05:00 Levi [facility] AC PANEL 20 + LACTIC ACID 2023-03-08 01:55:00 Levi MimiLeticiah Un [facility] AC PANEL 20 + LACTIC ACID 2023-03-08 01:55:00 Levi Mimi-Alexandra Un [facility] AC PANEL 20 + LACTIC ACID 2023-03-08 01:55:00 Levi [facility] CBC WITH DIFF 2023-03-08 01:52:00 Jonathon [facility] CBC WITH DIFF 2023-03-08 01:52:00 Jonathon [facility] CBC WITH DIFF 2023-03-08 01:52:00 Jonathon [facility] POCT GLUCOSE (AUTOMATED) 2023-03-08 01:51:00 LicLuciano garcia [facility] POCT GLUCOSE (AUTOMATED) 2023-03-08 01:51:00 LicLuciano garcia [facility] POCT GLUCOSE (AUTOMATED) 2023-03-08 01:51:00 Luciano Long [facility] PREPARE PACKED RBC 2023-03-08 00:21:37 Vu, [facility] PREPARE PACKED RBC 2023-03-08 00:21:37 Vu, [facility] PREPARE PACKED RBC 2023-03-08 00:21:37 Levi, [facility] POCT GLUCOSE (AUTOMATED) 2023-03-07 21:55:00 LicLuciano garcia [facility] POCT GLUCOSE (AUTOMATED) 2023-03-07 21:55:00 LicLuciano garcia [facility] POCT GLUCOSE (AUTOMATED) 2023-03-07 21:55:00 Luciano Long [facility] BLOOD CULTURE SCREEN 2023-03-07 21:15:00 Zeyad Alexandre [facility] BLOOD CULTURE SCREEN 2023-03-07 21:15:00 Zeyad Alexandre [facility] BLOOD CULTURE SCREEN 2023-03-07 21:15:00 Zeyad Alexandre [facility] VANCOMYCIN RANDOM LEVEL 2023-03-07 18:31:00 Luciano Long [facility] CBC WITH DIFF 2023-03-07 18:31:00 [facility]athon [facility] VANCOMYCIN RANDOM LEVEL 2023-03-07 18:31:00 Lick, [facility] CBC WITH DIFF 2023-03-07 18:31:00 Jonathon [facility] VANCOMYCIN RANDOM LEVEL 2023-03-07 18:31:00 Lick, Luciano [facility] CBC WITH DIFF 2023-03-07 18:31:00 [facility] POCT GLUCOSE (AUTOMATED) 2023-03-07 18:28:00 Lick, Luciano [facility]UCOSE (AUTOMATED) 2023-03-07 18:28:00 Lick, Luciano [facility] POCT GLUCOSE (AUTOMATED) 2023-03-07 18:28:00 Lick, Luciano [facility] BLOOD CULTURE SCREEN 2023-03-07 15:26:00 Zeyad Alexandre [facility] FUNGUS (BLOOD) CULTURE 2023-03-07 15:26:00 Bettie [facility] BLOOD CULTURE SCREEN 2023-03-07 15:26:00 Bettie [facility] FUNGUS (BLOOD) CULTURE 2023-03-07 15:26:00 Zeyad Alexandre [facility] BLOOD CULTURE SCREEN 2023-03-07 15:26:00 Zeyad Alexandre [facility] FUNGUS (BLOOD) CULTURE 2023-03-07 15:26:00 Zeyad Alexandre [facility] POCT GLUCOSE (AUTOMATED) 2023-03-07 15:02:00 LicLuciano garcia [facility] POCT GLUCOSE (AUTOMATED) 2023-03-07 15:02:00 LickLuciano [facility] POCT GLUCOSE (AUTOMATED) 2023-03-07 15:02:00 Luciano Long [facility] XR CHEST 1 VW 2023-03-07 09:26:00 [facility] 2023-03-07 09:26:00 [facility] XR CHEST 1 VW 2023-03-07 09:26:00 [facility]EL [facility] + LACTIC ACID 2023-03-07 09:13:00 Ghazal Sims Un [facility] AC PANEL 20 + LACTIC ACID 2023-03-07 09:13:00 [facility] + LACTIC ACID 2023-03-07 09:13:00 Vu MimiAnkit Un [facility] POCT GLUCOSE (AUTOMATED) 2023-03-07 08:59:00 Lick [facility] POCT GLUCOSE (AUTOMATED) 2023-03-07 08:59:00 Lick [facility] POCT GLUCOSE (AUTOMATED) 2023-03-07 08:59:00 Lick [facility] CBC WITH DIFF 2023-03-07 08:56:00 [facility] BASIC METABOLIC PANEL 2023-03-07 08:56:00 [facility] ([facility], K, CL, CO2, GLUCOSE, Medica l Branch BUN, CREATININE, CA) MAGNESIUM 2023-03-07 08:56:00 [facility] PHOSPHORUS 2023-03-07 08:56:00 Jonathon [facility] D-DIMER 2023-03-07 08:56:00 Alexus [facility] FIBRINOGEN 2023-03-07 08:56:00 Alexus [facility] PROTHROMBIN TIME / INR 2023-03-07 08:56:00 Isaac Vaughan [facility] ACTIVATED PARTIAL 2023-03-07 08:56:00 Isaac Vaughan [facility] 2023-03-07 08:56:00 [facility] MAGNESIUM 2023-03-07 08:56:00 Jonathon [facility] BASIC METABOLIC PANEL 2023-03-07 08:56:00 [facility] ([facility], K, CL, CO2, GLUCOSE, Medica l Branch BUN, CREATININE, CA) CBC WITH DIFF 2023-03-07 08:56[facility]00 [facility] 2023-03-07 08:56:00 Alexus [facility] D-DIMER 2023-03-07 08:56:00 Alexus [facility] ACTIVATED PARTIAL 2023-03-07 08:56:00 Isaac Vaughan [facility] FIBRINOGEN 2023-03-07 08:56:00 Alexus [facility] PHOSPHORUS 2023-03-07 08:56:00 [facility] MAGNESIUM 2023-03-07 08:56:00 [facility] BASIC METABOLIC PANEL 2023-03-07 08:56:00 [facility] ([facility], K, CL, CO2, GLUCOSE, Medica l Branch BUN, CREATININE, CA) CBC WITH DIFF 2023-03-07 08:56:00 [facility] PROTHROMBIN TIME / INR 2023-03-07 08:56:00 Alexus [facility] D-DIMER 2023-03-07 08:56:00 Alexus [facility] ACTIVATED PARTIAL 2023-03-07 08:56:00 Alexus [facility] FIBRINOGEN 2023-03-07 08:56:00 Alexus [facility] AC PANEL 20 + LACTIC ACID 2023-03-07 04:09:00 Ghazal Sims [facility] AC PANEL 20 + LACTIC ACID 2023-03-07 04:09:00 Ghazal Sims [facility] AC PANEL 20 + LACTIC ACID 2023-03-07 04:09:00 [facility] PANEL [facility] + LACTIC ACID 2023-03-07 02:08:00 Ghazal Sims Un [facility] AC PANEL 20 + LACTIC ACID 2023-03-07 02:08:00 Vu, [facility] AC PANEL 20 + LACTIC ACID 2023-03-07 02:08:00 Vu, [facility] Un [facility] POCT GLUCOSE (AUTOMATED) 2023-03-07 01:39:00 LickLuciano Bella [facility] POCT GLUCOSE (AUTOMATED) 2023-03-07 01:39:00 LickLuciano [facility] POCT GLUCOSE (AUTOMATED) 2023-03-07 01:39:00 LickLuciano [facility] XR KUB 2023-03-07 01:00:00 Alexus [facility] XR KUB 2023-03-07 01:00:00 Alexus [facility] XR KUB 2023-03-07 01:00:00 Alexus [facility] ARTERIAL LINE 2023-03-06 23:20:00 Alexus [facility] ARTERIAL LINE 2023-03-06 23:20:00 Alexus [facility] POCT GLUCOSE (AUTOMATED) 2023-03-06 22:49:00 LickLuciano [facility] POCT GLUCOSE (AUTOMATED) 2023-03-06 22:49:00 LicLuciano garcia [facility] POCT GLUCOSE (AUTOMATED) 2023-03-06 22:49:00 Luciano Long [facility] CBC WITH DIFF 2023-03-06 19:57:00 [facility] CBC WITH DIFF 2023-03-06 19:57:00 [facility] CBC WITH DIFF 2023-03-06 19:57:00 [facility] TRANSESOPHAGEAL ECHO 2023-03-06 18:47:00 Vu [facility] ([place]) COMPLETE W/ DOPPLER Medica l Branch AND COLOR TRANSESOPHAGEAL ECHO 2023-03-06 18:47:00 Levi [facility] ([place]) COMPLETE W/ DOPPLER Medica l Branch AND COLOR TRANSESOPHAGEAL ECHO 2023-03-06 18:47:00 Levi [facility] ([place]) COMPLETE W/ DOPPLER Medica l Branch AND COLOR POCT GLUCOSE (AUTOMATED) 2023-03-06 17:48:00 Lick, Luciano [facility] POCT GLUCOSE (AUTOMATED) 2023-03-06 17:48:00 Lick, Luciano [facility] POCT GLUCOSE (AUTOMATED) 2023-03-06 17:48:00 Lick, Luciano [facility] POCT GLUCOSE (AUTOMATED) 2023-03-06 13:40:00 Lick, Luciano [facility] POCT GLUCOSE (AUTOMATED) 2023-03-06 13:40:00 Lick, Luciano [facility] POCT GLUCOSE (AUTOMATED) 2023-03-06 13:40:00 Lick, Luciano [facility] TRANSFUSE PACKED RBC 2023-03-06 13:30:00 Levi [facility] TRANSFUSE PACKED RBC 2023-03-06 13:30:00 Levi [facility] TRANSFUSE PACKED RBC 2023-03-06 13:30:00 Levi [facility] PREPARE PACKED RBC 2023-03-06 13:01:17 Levi [facility] PREPARE PACKED RBC 2023-03-06 13:01:17 Levi [facility] PREPARE PACKED RBC 2023-03-06 13:01:17 Levi [facility] HB ABO GROUPING 2023-03-06 12:00:00 Levi [facility] HB ABO GROUPING 2023-03-06 12:00:00 Levi [facility] HB ABO GROUPING 2023-03-06 12:00:00 Levi [facility] XR CHEST 1 VW 2023-03-06 10:15:00 [facility] 1 VW 2023-03-06 10:15:00 [facility] XR CHEST 1 VW 2023-03-06 10:15:00 [facility] CBC WITHOUT DIFF 2023-03-06 08:25:00 Alexus [facility] CBC WITHOUT DIFF 2023-03-06 08:25:00 Alexus [facility] CBC WITHOUT DIFF 2023-03-06 08:25:00 Alexus [facility] COMP. METABOLIC PANEL 2023-03-06 08:23:00 Vu, [facility] ([id number] [place] [address] MAGNESIUM 2023-03-06 08:23:00 Vu, [facility] PHOSPHORUS 2023-03-06 08:23:00 Vu, [facility] AC PANEL 21 + LACTIC ACID 2023-03-06 08:23:00 Vu, [facility] ACTIVATED PARTIAL 2023-03-06 08:23:00 Vu, [facility] PHOSPHORUS 2023-03-06 08:23:00 Vu, [facility] MAGNESIUM 2023-03-06 08:23:00 Vu, [facility] COMP. METABOLIC PANEL 2023-03-06 08:23:00 Vu, [facility] ([id number]) [facility] ACTIVATED PARTIAL 2023-03-06 08:23:00 Vu, [facility] AC PANEL 21 + LACTIC ACID 2023-03-06 08:23:00 Vu, [facility] Un [facility] PHOSPHORUS 2023-03-06 08:23:00 Vu, [facility] MAGNESIUM 2023-03-06 08:23:00 Vu, [facility] COMP. METABOLIC PANEL 2023-03-06 08:23:00 Vu, [facility] ([id number]) [facility] ACTIVATED PARTIAL 2023-03-06 08:23:00 Vu, [facility] AC PANEL 21 + LACTIC ACID 2023-03-06 08:23:00 Levi, [facility] (AUTOMATED) 2023-03-06 05:05:00 Lick, [facility] POCT GLUCOSE (AUTOMATED) 2023-03-06 05:05:00 Lick, [facility] POCT GLUCOSE (AUTOMATED) 2023-03-06 05:05:00 Lick, Luciano Uni [facility] POCT GLUCOSE (AUTOMATED) 2023-03-06 01:33:00 Lick, [facility] PO[facility]SE (AUTOMATED) 2023-03-06 01:33:00 Lick, Luciano Uni [facility] POCT GLUCOSE (AUTOMATED) 2023-03-06 01:33:00 Lick, Luciano [facility] POCT GLUCOSE (AUTOMATED) 2023-03-06 01:31:00 Lick, Luciano Uni [facility] POCT GLUCOSE (AUTOMATED) 2023-03-06 01:31:00 Lick, Luciano Uni [facility] POCT GLUCOSE (AUTOMATED) 2023-03-06 01:31:00 Lick, Luciano [facility] ACTIVATED PARTIAL 2023-03-05 20:35:00 Vu, [facility] CBC WITHOUT DIFF 2023-03-05 20:35:00 Alexus [facility] CBC WITHOUT DIFF 2023-03-05 20:35:00 Alexus [facility] ACTIVATED PARTIAL 2023-03-05 20:35:00 Vu, [facility] CBC WITHOUT DIFF 2023-03-05 20:35:00 Alexus [facility] ACTIVATED PARTIAL 2023-03-05 20:35:00 Vu, [facility] CT ABDOMEN PELVIS W 2023-03-05 20:28:00 Vu, [facility] CONTRAST Medical Branch CT THORAX W CONTRAST 2023-03-05 20:28:00 Vu, [facility] PELVIS W 2023-03-05 20:28:00 Vu[facility]AST 2023-03-05 20:28:00 Vu, [facility] ABDOMEN PELVIS W 2023-03-05 20:28:00 Vu, [facility] THORAX W CONTRAST 2023-03-05 20:28:00 Vu, [facility] SPUTUM CULTURE 2023-03-05 19:03:00 Vu, [facility] FUNGUS (ROUTINE) CULTURE 2023-03-05 19:03:00 Vu, [facility] FUNGUS (ROUTINE) CULTURE 2023-03-05 19:03:00 Vu, [facility]Nov[facility] SPUTUM CULTURE 2023-03-05 19:03:00 Vu, [facility] FUNGUS (ROUTINE) CULTURE 2023-03-05 19:03:00 Vu, [facility] SPUTUM CULTURE 2023-03-05 19:03:00 Vu, [facility] AC PANEL 20 + LACTIC ACID 2023-03-05 18:37:00 Vu, [facility] 2023-03-05 18:37:00 Vu, [facility] ACTIVATED [facility]IAL 2023-03-05 18:37:00 Vu, [facility] AC PANEL 20 + LACTIC ACID 2023-03-05 18:37:00 Vu, Leathah Un [facility] ACTIVATED PARTIAL 2023-03-05 18:37:00 Vu, [facility] AC PANEL 20 + LACTIC ACID 2023-03-05 18:37:00 Vu, Leathah [facility] CBC WITH DIFF 2023-03-05 12:58:00 [facility] 2023-03-05 12:58:00 Levi [facility] CBC WITH DIFF 2023-03-05 12:58:00 Jonathon [facility] ACTIVATED PARTIAL 2023-03-05 12:58:00 Levi [facility] CBC WITH DIFF 2023-03-05 12:58:00 Jonathon, [facility] ACTIVATED PARTIAL 2023-03-05 12:58:00 Levi [facility] POCT GLUCOSE (AUTOMATED) 2023-03-05 12:38:00 LicLuciano garcia [facility] POCT GLUCOSE (AUTOMATED) 2023-03-05 12:38:00 LickLuciano [facility] POCT GLUCOSE (AUTOMATED) 2023-03-05 12:38:00 Luciano Long [facility] XR CHEST 1 VW 2023-03-05 11:50:00 [facility]b [facility] XR CHEST 1 VW 2023-03-05 11:50:00 [facility] TRANSFUSE PACKED RBC 2023-03-05 09:46:00 Emily Holt [facility] TRANSFUSE PACKED RBC 2023-03-05 09:46:00 Emily Holt [facility] TRANSFUSE PACKED RBC 2023-03-05 09:46:00 Emily Holt [facility] PREPARE PACKED RBC 2023-03-05 09:44:43 [facility] 2023-03-05 09:44:43 [facility] 2023-03-05 09:44:43 [facility] PROC[facility]IN 2023-03-05 08:37:00 [facility] WITH DIFF 2023-03-05 08:37:00 Vu, [facility] BASIC METABOLIC PANEL 2023-03-05 08:37:00 Emily Holt [facility] sity [facility] (NA, K, CL, CO2, GLUCOSE, Medica l Branch BUN, CREATININE, CA) AC PANEL 20 + LACTIC ACID 2023-03-05 08:37:00 Emily Holt [facility] ACTIVATED PARTIAL 2023-03-05 08:37:00 Levi, [facility] PHOSPHORUS 2023-03-05 08:37:00 Raul [facility] PHOSPHORUS 2023-03-05 08:37:00 Raul, [facility] BASIC METABOLIC PANEL 2023-03-05 08:37:00 Emily Holt [facility] (NA, K, CL, CO2, GLUCOSE, Medica l Branch BUN, CREATININE, CA) CBC WITH DIFF 2023-03-05 08:37:00 Levi, [facility] ACTIVATED PARTIAL 2023-03-05 08:37:00 Levi, [facility] PROCALCITONIN 2023-03-05 08:37:00 [facility] AC PANEL 20 + LACTIC ACID 2023-03-05 08:37:00 Emily Holt [facility] PHOSPHORUS 2023-03-05 08:37:00 Raul, [facility] BASIC METABOLIC PANEL 2023-03-05 08:37:00 Emily Holt [facility] sity [facility] (NA, K, CL, CO2, GLUCOSE, Medica l Branch BUN, CREATININE, CA) CBC WITH DIFF 2023-03-05 08:37:00 Levi [facility] ACTIVATED PARTIAL 2023-03-05 08:37:00 Levi, [facility] PROCALCITONIN 2023-03-05 08:37:00 [facility]b [facility] AC PANEL 20 + LACTIC ACID 2023-03-05 08:37:00 Emily [facility] AC PANEL 20 + LACTIC ACID 2023-03-05 04:38:00 Emily Holt [facility] AC PANEL 20 + LACTIC ACID 2023-03-05 04:38:00 Emily Holt [facility] AC PANEL 20 + LACTIC ACID 2023-03-05 04:38:00 HoltEmily butcher Un [facility] CBC WITH DIFF 2023-03-05 03:35:00 Vu, [facility] ACTIVATED PARTIAL 2023-03-05 03:35:00 Vu, [facility] CBC WITH DIFF 2023-03-05 03:35:00 Vu, [facility] ACTIVATED PARTIAL 2023-03-05 03:35:00 Vu, [facility] CBC WITH DIFF 2023-03-05 03:35:00 Vu, [facility] ACTIVATED PARTIAL 2023-03-05 03:35:00 Vu, [facility] POCT GLUCOSE (AUTOMATED) 2023-03-05 01:08:00 Luciano Long [facility] POCT GLUCOSE (AUTOMATED) 2023-03-05 01:08:00 Luciano Long [facility] POCT GLUCOSE (AUTOMATED) 2023-03-05 01:08:00 Luciano Long [facility] ACTIVATED PARTIAL 2023-03-04 23:52:00 Vu, [facility] ACTIVATED PARTIAL 2023-03-04 23:52:00 Vu, [facility] ACTIVATED PARTIAL 2023-03-04 23:52:00 Vu, [facility] POCT GLUCOSE (AUTOMATED) 2023-03-04 21:53:00 Luciano Long [facility] POCT GLUCOSE (AUTOMATED) 2023-03-04 21:53:00 Luciano Long [facility] POCT GLUCOSE (AUTOMATED) 2023-03-04 21:53:00 TeresajoseLuciano [facility] OCCULT (GUAIAC) BLOOD 2023-03-04 21:47:00 Vu, [facility] CBC WITH DIFF 2023-03-04 21:47:00 Vu, [facility] CBC WITH DIFF 2023-03-04 21:47:00 Vu, [facility] OCCULT (GUAIAC) BLOOD 2023-03-04 21:47:00 Vu, [facility] CBC WITH DIFF 2023-03-04 21:47:00 Vu, [facility] OCCULT (GUAIAC) BLOOD 2023-03-04 21:47:00 Levi [facility] FIBRINOGEN 2023-03-04 21:46:00 Jonathon [facility] FIBRINOGEN 2023-03-04 21:46:00 Jonathon [facility] FIBRINOGEN 2023-03-04 21:46:00 Jonathon [facility] FECES CULTURE 2023-03-04 21:01:00 Levi [facility] CLOSTRIDIUM DIFFICILE 2023-03-04 21:01:00 Levi [facility] FECES CULTURE 2023-03-04 21:01:00 Levi [facility] FECES CULTURE 2023-03-04 21:01:00 Levi [facility] CLOSTRIDIUM DIFFICILE 2023-03-04 21:01:00 Levi [facility] FECES CULTURE 2023-03-04 21:01:00 Levi, [facility] CLOSTRIDIUM DIFFICILE 2023-03-04 21:01:00 Levi, [facility] CBC WITHOUT DIFF 2023-03-04 18:30:00 Isaac Vaughan [facility] CBC WITHOUT DIFF 2023-03-04 18:30:00 Alexus [facility] CBC WITHOUT DIFF 2023-03-04 18:30:00 Alexus [facility] POTASSIUM SERUM 2023-03-04 16:38:00 Levi [facility] ACTIVATED PARTIAL 2023-03-04 16:38:00 [facility] POTASSIUM SERUM 2023-03-04 16:38:00 Levi, [facility] ACTIVATED PARTIAL 2023-03-04 16:38:00 [facility] POTASSIUM SERUM 2023-03-04 16:38:00 Levi, [facility] ACTIVATED PARTIAL 2023-03-04 16:38[facility]00 [facility]EL 20 + LACTIC ACID 2023-03-04 16:37:00 Jackie [facility] PANEL 20 + LACTIC ACID 2023-03-04 16:37:00 Jackie [facility] AC PANEL 20 + LACTIC ACID 2023-03-04 16:37:00 Jackie Zamudio [facility] TRANSFUSE PACKED RBC 2023-03-04 14:00:00 Levi [facility] TRANSFUSE PACKED RBC 2023-03-04 14:00:00 Levi [facility] TRANSFUSE PACKED RBC 2023-03-04 14:00:00 Levi [facility] PREPARE PACKED RBC 2023-03-04 13:44:44 Levi [facility] PREPARE PACKED RBC 2023-03-04 13:44:44 Levi [facility] PREPARE PACKED RBC 2023-03-04 13:44:44 [facility] POCT GLUCOSE (AUTOMATED) 2023-03-04 13:14:00 Luciano Long [facility] POCT GLUCOSE (AUTOMATED) 2023-03-04 13:14:00 Luciano Long [facility] POCT GLUCOSE (AUTOMATED) 2023-03-04 13:14:00 Luciano Long [facility] ACTIVATED PARTIAL 2023-03-04 13:09:00 Levi [facility] ACTIVATED PARTIAL 2023-03-04 13:09:00 Levi, [facility] ACTIVATED PARTIAL 2023-03-04 13:09:00 Levi, [facility] AC PANEL 20 + LACTIC ACID 2023-03-04 09:47:00 Jackie Zamudio Un [facility] AC PANEL 20 + LACTIC ACID 2023-03-04 09:47:00 Jackie Zamudio Un [facility] AC PANEL 20 + LACTIC ACID 2023-03-04 09:47:00 Jackie Zamudio [facility] PHOSPHORUS 2023-03-04 09:46:00 [facility] HEPATIC FUNCTION PANEL 2023-03-04 09:46:00 Robb [facility] ([id number]) ([facility] T,BU/BC,ALT,AST,ALK PHOS) PROCALCITONIN 2023-03-04 09:46:00 [facility] BASIC METABOLIC PANEL 2023-03-04 09:46:00 Isaac Vaughan [facility] (NA, K, CL, CO2, GLUCOSE, Medica l Branch BUN, CREATININE, CA) CBC WITH DIFF 2023-03-04 09:46:00 Alexus [facility] MAGNESIUM 2023-03-04 09:46:00 Alexus [facility] ACTIVATED PARTIAL 2023-03-04 09:46:00 Levi [facility] PHOSPHORUS 2023-03-04 09:46:00 [facility] MAGNESIUM 2023-03-04 09:46:00 Alexus [facility] HEPATIC FUNCTION PANEL 2023-03-04 09:46:00 Jackie Zamudio [facility] ([id number]) (ALB,T.PRO,BILI Medical Branch T,BU/BC,ALT,AST,ALK PHOS) BASIC METABOLIC PANEL 2023-03-04 09:46:00 Isaac Vaughan [facility] (NA, K, CL, CO2, GLUCOSE, Medica l Branch BUN, CREATININE, CA) CBC WITH DIFF 2023-03-04 09:46:00 Alexus [facility] ACTIVATED PARTIAL 2023-03-04 09:46:00 Levi [facility] PROCALCITONIN 2023-03-04 09:46:00 [facility] PHOSPHORUS 2023-03-04 09:46:00 [facility] MAGNESIUM 2023-03-04 09:46:00 Isaac Vaughan [facility] HEPATIC FUNCTION PANEL 2023-03-04 09:46:00 Jackie Zamudio [facility] ([id number]) (ALB,T.PRO,BILI Medical Branch T,BU/BC,ALT,AST,ALK PHOS) BASIC METABOLIC PANEL 2023-03-04 09:46:00 Isaac Vaughan [facility] (NA, K, CL, CO2, GLUCOSE, Medica l Branch BUN, CREATININE, CA) CBC WITH DIFF 2023-03-04 09:46:00 Isaac Vaughan [facility] ACTIVATED PARTIAL 2023-03-04 09:46:00 Levi [facility] PROCALCITONIN 2023-03-04 09:46:00 [facility]b [facility] XR CHEST 1 VW 2023-03-04 08:40:00 [facility] XR KUB 2023-03-04 08:40:00 Brittany [facility] XR CHEST 1 VW 2023-03-04 08:40:00 [facility] KUB 2023-03-04 08:40:00 Brittany [facility] XR CHEST 1 VW 2023-03-04 08:40:00 Jackie [facility]udio [facility] XR KUB 2023-03-04 08:40:00 Brittany [facility] ACTIVATED PARTIAL 2023-03-04 06:37:00 Vu, [facility] ACTIVATED PARTIAL 2023-03-04 06:37:00 Vu, [facility] ACTIVATED PARTIAL 2023-03-04 06:37:00 Vu, [facility] AC PANEL 20 + LACTIC ACID 2023-03-04 04:21:00 Jackie Zamudio Un iversity [facility] AC PANEL 20 + LACTIC ACID 2023-03-04 04:21:00 Jackie Zamudio Un iversity [facility] AC PANEL 20 + LACTIC ACID 2023-03-04 04:21:00 Jackie [facility] ABDOMEN 1 VW 2023-03-04 02:55:00 Alexus [facility] XR ABDOMEN 1 VW 2023-03-04 02:55:00 Alexus [facility] XR ABDOMEN 1 2023-03-04 02:55:00 Alexus [facility] ACTIVATED PARTIAL 2023-03-04 01:52:00 Levi, [facility] ACTIVATED PARTIAL 2023-03-04 01:52:00 Vu, [facility] ACTIVATED PARTIAL 2023-03-04 01:52:00 Vu, [facility] AC PANEL 20 + LACTIC ACID 2023-03-04 01:50:00 Jackie Zamudio Un iversity [facility] AC PANEL 20 + LACTIC ACID 2023-03-04 01:50:00 Jackie Zamudio Un iversity [facility] AC PANEL 20 + LACTIC ACID 2023-03-04 01:50:00 Jackie Zamudio Un iversity [facility] AC PANEL 20 + LACTIC ACID 2023-03-04 00:27:00 Jackie Zamudio Un iversity of [facility] AC PANEL 20 + LACTIC ACID 2023-03-04 00:27:00 Jackie Zamudio Un [facility] AC PANEL 20 + LACTIC ACID 2023-03-04 00:27:00 Jackie Zamudio Un iversity of [facility] XR CHEST 1 VW 2023-03-03 22:56:00 Alexus [facility] XR CHEST 1 VW 2023-03-03 22:56:00 Alexus [facility] XR CHEST 1 VW 2023-03-03 22:56:00 Alexus [facility] AC PANEL 20 + LACTIC ACID 2023-03-03 22:34:00 Jackie Zamudio Un iversity of [facility] AC PANEL 20 + LACTIC ACID 2023-03-03 22:34:00 Jackie Zamudio Un iversity of [facility] AC PANEL 20 + LACTIC ACID 2023-03-03 22:34:00 Jackie Zamudio Un iversity of [facility] AC PANEL 20 + LACTIC ACID 2023-03-03 21:31:00 Jackie Zamudio Un iversity of [facility] AC PANEL 20 + LACTIC ACID 2023-03-03 21:31:00 Jackie Zamudio Un iversity of [facility] AC PANEL 20 + LACTIC ACID 2023-03-03 21:31:00 Jackie Zamudio Un iversity of [facility] POCT GLUCOSE (AUTOMATED) 2023-03-03 20:36:00 Luciano Long [facility] POCT GLUCOSE (AUTOMATED) 2023-03-03 20:36:00 Luciano Long versity [facility] POCT GLUCOSE (AUTOMATED) 2023-03-03 20:36:00 Luciano [facility] ACTIVATED PARTIAL 2023-03-03 20:30:00 Levi [facility] ACTIVATED PARTIAL 2023-03-03 20:30:00 Levi [facility] ACTIVATED PARTIAL 2023-03-03 20:30:00 Levi [facility] ACTIVATED PARTIAL 2023-03-03 16:04:00 [facility] ACTIVATED PARTIAL 2023-03-03 16:04:00 [facility] ACTIVATED PARTIAL 2023-03-03 16:04:00 [facility] POCT GLUCOSE (AUTOMATED) 2023-03-03 13:45:00 LicLuciano garcia [facility] POCT GLUCOSE (AUTOMATED) 2023-03-03 13:45:00 LickLuciano [facility] POCT GLUCOSE (AUTOMATED) 2023-03-03 13:45:00 Luciano Long [facility] XR CHEST 1 VW 2023-03-03 08:36[facility] 2023-03-03 08:36:00 [facility] MAGNESIUM 2023-03-03 08:31:00 [facility] PHOSPHORUS 2023-03-03 08:31:00 [facility] HEPATIC FUNCTION PANEL 2023-03-03 08:31:00 Jackie Zamudio [facility] ([id number]) (ALB,T.PRO,BILI Medical Branch T,BU/BC,ALT,AST,ALK PHOS) PROCALCITONIN 2023-03-03 08:31:00 Robb [facility] THYROID STIMULATING 2023-03-03 08:31:00 Jackie Zamudio [facility] HORMONE [facility] FREE T3 2023-03-03 08:31:00 Robb [facility] FREE T4 2023-03-03 08:31:00 Robb [facility] DIGOXIN 2023-03-03 08:31:00 Robb [facility] BASIC METABOLIC PANEL 2023-03-03 08:31:00 Jackie Zamudio [facility] (NA, K, CL, CO2, GLUCOSE, Medica l Branch BUN, CREATININE, CA) PROTHROMBIN TIME / INR 2023-03-03 08:31:00 [facility] CBC WITH DIFF 2023-03-03 08:31:00 Levi [facility] ACTIVATED PARTIAL 2023-03-03 08:31:00 Levi [facility] POCT GLUCOSE (AUTOMATED) 2023-03-03 08:31:00 Luciano Long [facility] PHOSPHORUS 2023-03-03 08:31:00 Robb [facility] MAGNESIUM 2023-03-03 08:31:00 Robb [facility] FREE T4 2023-03-03 08:31:00 [facility]b [facility] THYROID STIMULATING 2023-03-03 08:31:00 Jackie Zamudio [facility] HORMONE [facility] HEPATIC FUNCTION PANEL 2023-03-03 08:31:00 Jackie Zamudio [facility] ([id number]) (ALB,T.PRO,BILI Medical Branch T,BU/BC,ALT,AST,ALK PHOS) BASIC METABOLIC PANEL 2023-03-03 08:31:00 Jackie Zamudio [facility] (NA, K, CL, CO2, GLUCOSE, Medica l Branch BUN, CREATININE, CA) DIGOXIN 2023-03-03 08:31:00 [facility] CBC WITH DIFF 2023-03-03 08:31:00 Levi [facility] PROTHROMBIN TIME / INR 2023-03-03 08:31:00 Jackie [facility] ACTIVATED PARTIAL 2023-03-03 08:31:00 Levi [facility] POCT GLUCOSE (AUTOMATED) 2023-03-03 08:31:00 Luciano Long [facility] FREE T3 2023-03-03 08:31:00 Robb [facility] PROCALCITONIN 2023-03-03 08:31:00 Robb [facility] PHOSPHORUS 2023-03-03 08:31:00 Robb, [facility] MAGNESIUM 2023-03-03 08:31:00 Robb [facility] FREE T4 2023-03-03 08:31:00 [facility] THYROID STIMULATING 2023-03-03 08:31:00 Jackie Zamudio [facility] HORMONE [facility] HEPATIC FUNCTION PANEL 2023-03-03 08:31:00 Jackie Zamudio [facility] ([id number]) (ALB,T.PRO,BILI Medical Branch T,BU/BC,ALT,AST,ALK PHOS) BASIC METABOLIC PANEL 2023-03-03 08:31:00 Robb [facility] (NA, K, CL, CO2, GLUCOSE, Medica l Branch BUN, CREATININE, CA) DIGOXIN 2023-03-03 08:31:00 Robb [facility] CBC WITH DIFF 2023-03-03 08:31:00 Levi [facility] PROTHROMBIN TIME / INR 2023-03-03 08:31:00 Robb [facility] ACTIVATED PARTIAL 2023-03-03 08:31:00 Levi [facility] POCT GLUCOSE (AUTOMATED) 2023-03-03 08:31:00 Luciano Long [facility] FREE T3 2023-03-03 08:31:00 Robb [facility] PROCALCITONIN 2023-03-03 08:31:00 Robb [facility] ACTIVATED PARTIAL 2023-03-03 06:10:00 Levi [facility] ACTIVATED PARTIAL 2023-03-03 06:10:00 Levi [facility] ACTIVATED PARTIAL 2023-03-03 06:10:00 Levi [facility] POCT GLUCOSE (AUTOMATED) 2023-03-03 05:03:00 Luciano Long [facility] POCT GLUCOSE (AUTOMATED) 2023-03-03 05:03:00 Lick [facility] PO[facility] GLUCOSE (AUTOMATED) 2023-03-03 05:03:00 LickLuciano Bella [facility] ACTIVATED PARTIAL 2023-03-03 02:35[facility]00 [facility] 2023-03-03 02:35:00 [facility] ACTIVATED PARTIAL 2023-03-03 02:35:00 [facility] POCT GLUCOSE (AUTOMATED) 2023-03-03 02:34:00 Lick, Luciano Bella [facility] POCT GLUCOSE (AUTOMATED) 2023-03-03 02:34:00 LickLuciano Bella [facility] POCT GLUCOSE (AUTOMATED) 2023-03-03 02:34:00 LickLuciano Bella [facility] ACTIVATED PARTIAL 2023-03-02 22:24:00 Vu, [facility] ACTIVATED PARTIAL 2023-03-02 22:24:00 Vu, [facility] ACTIVATED PARTIAL 2023-03-02 22:24:00 Vu, [facility] POCT GLUCOSE (AUTOMATED) 2023-03-02 21:08:00 LickLuciano [facility] POCT GLUCOSE (AUTOMATED) 2023-03-02 21:08:00 LickLuciano [facility] POCT GLUCOSE (AUTOMATED) 2023-03-02 21:08:00 LickLuciano [facility] POCT GLUCOSE (AUTOMATED) 2023-03-02 17:20:00 LickLuciano [facility] POCT GLUCOSE (AUTOMATED) 2023-03-02 17:20:00 LickLuciano [facility] POCT GLUCOSE (AUTOMATED) 2023-03-02 17:20:00 LickLuciano [facility] CBC WITHOUT DIFF 2023-03-02 17:19:00 [facility] 2023-03-02 17:19:00 Vu, [facility] CBC WITHOUT DIFF 2023-03-02 17:19:00 [place], [facility] KELL, UNFRACTIONATED 2023-03-02 17:19:00 Vu, [facility] CBC WITHOUT DIFF 2023-03-02 17:19:00 Elena [facility] KELL, UNFRACTIONATED 2023-03-02 17:19:00 Vu, [facility] PROTHROMBIN TIME / INR 2023-03-02 13:46:[address] [place] [facility] FIBRINOGEN 2023-03-02 13:46:[address] [place] [facility] [place] PROTHROMBIN TIME / INR 2023-03-02 13:46:[address] [place] [facility] FIBRINOGEN 2023-03-02 13:46:[address] [facility] [place] PROTHROMBIN TIME / INR 2023-03-02 13:46:[address] [place] [facility] FIBRINOGEN 2023-03-02 13:46:[address] [place] [facility] [place] PHOSPHORUS 2023-03-02 12:35:00 Paco [facility] HB ABO GROUPING 2023-03-02 12:35:[address] [facility] [place] KELL, UNFRACTIONATED 2023-03-02 12:35:00 [place] [facility] EXTRA SST HOLD FOR [facility] 2023-03-02 12:35:00 Elena [facility] PHOSPHORUS 2023-03-02 12:35:00 Paco [facility] HB ABO GROUPING 2023-03-02 12:35:[address] [facility] [place] HIT - AB 2023-03-02 12:35:[address] [place] [facility] [place] EXTRA SST HOLD FOR [facility] 2023-03-02 12:35:00 Elena, [facility] PHOSPHORUS 2023-03-02 12:35:00 Paco [facility] HB ABO GROUPING 2023-03-02 12:35:00 Elena, [facility] [place] HIT - AB 2023-03-02 12:35:00 Elena, [facility] [place] EXTRA SST HOLD FOR [facility] 2023-03-02 12:35:00 [place], [facility] POCT GLUCOSE (AUTOMATED) 2023-03-02 12:34:00 Lick, [facility] POCT GLUCOSE (AUTOMATED) 2023-03-02 12:34:00 Lick, [facility] POCT GLUCOSE (AUTOMATED) 2023-03-02 12:34:00 Lick [facility] MAGNESIUM 2023-03-02 09:15:00 [place], [facility] [place] PHOSPHORUS 2023-03-02 09:15:00 Elena, [facility] [place] HEPATIC FUNCTION PANEL 2023-03-02 09:15:00 Clarice Zamudioalisa [facility] ([id number]) (ALB,T.PRO,[facility] T,BU/BC,ALT,AST,ALK PHOS) PROCALCITONIN 2023-03-02 09:15:00 [facility] 2023-03-02 09:15:00 Jackie Zamudio [facility] HORMONE [facility] FREE T3 2023-03-02 09:15:00 Robb [facility] FREE T4 2023-03-02 09:15:00 Robb [facility] DIGOXIN 2023-03-02 09:15:00 Robb [facility] CBC WITH DIFF 2023-03-02 09:15:[address] [facility] [place] [place] BASIC METABOLIC PANEL 2023-03-02 09:15:00 [place], [facility] (NA, K, CL, CO2, GLUCOSE, Medica l Branch BUN, CREATININE, CA) PROTHROMBIN TIME / INR 2023-03-02 09:15:00 Jackie Zamudio [facility] ACTIVATED PARTIAL 2023-03-02 09:15:00 [facility]SE (AUTOMATED) 2023-03-02 09:15:00 Luciano Long [facility] PHOSPHORUS 2023-03-02 09:15:[address] [place] [facility] [place] [place] MAGNESIUM 2023-03-02 09:15:[address] [place] [facility] [place] [place] FREE T4 2023-03-02 09:15:00 Robb [facility] THYROID STIMULATING 2023-03-02 09:15:00 Robb [facility] HORMONE [facility] HEPATIC FUNCTION PANEL 2023-03-02 09:15:00 Robb Jackie [facility] ([id number]) (ALB,T.PRO,BILI [facility] T,BU/BC,ALT,AST,ALK PHOS) BASIC METABOLIC PANEL 2023-03-02 09:15:00 [facility] (NA, K, CL, CO2, GLUCOSE, Medica l Branch BUN, CREATININE, CA) DIGOXIN 2023-03-02 09:15:00 Robb [facility] CBC WITH DIFF 2023-03-02 09:15:00 Elena, [facility] [place] [place] PROTHROMBIN TIME / INR 2023-03-02 09:15:00 [facility] ACTIVATED PARTIAL 2023-03-02 09:15:00 Rafita [facility] POCT GLUCOSE (AUTOMATED) 2023-03-02 09:15:00 Luciano Long [facility] FREE T3 2023-03-02 09:15:00 Robb [facility] PROCALCITONIN 2023-03-02 09:15:00 Robb [facility] PHOSPHORUS 2023-03-02 09:15:00 Elena, [facility] [place] [place] MAGNESIUM 2023-03-02 09:15:[address] [facility] [place] [place] FREE T4 2023-03-02 09:15:00 Robb [facility] THYROID STIMULATING 2023-03-02 09:15:00 Jackie Zamudio [facility] HORMONE [facility] HEPATIC FUNCTION PANEL 2023-03-02 09:15:00 Jackie Zamudio [facility] ([id number]) (ALB,T.PRO,BILI Medical [facility] T,BU/BC,ALT,AST,ALK PHOS) BASIC METABOLIC PANEL 2023-03-02 09:15:00 [facility] (NA, K, CL, CO2, GLUCOSE, Medica l Branch BUN, CREATININE, CA) DIGOXIN 2023-03-02 09:15:00 Robb [facility] CBC WITH DIFF 2023-03-02 09:15:[address] [facility] [place] [place] PROTHROMBIN TIME / INR 2023-03-02 09:15:00 Robb Jackie [facility] ACTIVATED PARTIAL 2023-03-02 09:15:00 Mya Eller [facility] POCT GLUCOSE (AUTOMATED) 2023-03-02 09:15:00 Luciano Long [facility] FREE T3 2023-03-02 09:15:00 Robb [facility] PROCALCITONIN 2023-03-02 09:15:00 Robb [facility] XR CHEST 1 VW 2023-03-02 09:00:00 Robb [facility] XR CHEST 1 VW 2023-03-02 09:00:00 Robb [facility] XR CHEST 1 VW 2023-03-02 09:00:00 Robb [facility] POCT GLUCOSE (AUTOMATED) 2023-03-02 04:57:00 Luciano Long [facility] POCT GLUCOSE (AUTOMATED) 2023-03-02 04:57:00 Luciano Long [facility] POCT GLUCOSE (AUTOMATED) 2023-03-02 04:57:00 LickLuciano [facility] POCT GLUCOSE (AUTOMATED) 2023-03-02 01:01:00 Luciano Long [facility] POCT GLUCOSE (AUTOMATED) 2023-03-02 01:01:00 LickLuciano [facility] POCT GLUCOSE (AUTOMATED) 2023-03-02 01:01:00 TeresakLuciano vers[facility] of [facility] BASIC METABOLIC PANEL 2023-03-01 22:37:00 Jackie Zamudio [facility] sity [facility] (NA, K, CL, CO2, GLUCOSE, Medica l Branch BUN, CREATININE, CA) ACTIVATED PARTIAL 2023-03-01 22:37:00 [facility] BASIC METABOLIC PANEL 2023-03-01 22:37:00 Jackie Zamudio [facility] (NA, K, CL, CO2, GLUCOSE, Medica l Branch BUN, CREATININE, CA) ACTIVATED PARTIAL 2023-03-01 22:37:00 [facility] BASIC METABOLIC PANEL 2023-03-01 22:37:00 Jackie [facility]ud[facility] (NA, K, CL, CO2, GLUCOSE, Medica l Branch BUN, CREATININE, CA) ACTIVATED PARTIAL 2023-03-01 22:37:00 [facility] POCT GLUCOSE (AUTOMATED) 2023-03-01 22:33:00 LicLuciano garcia [facility] POCT GLUCOSE (AUTOMATED) 2023-03-01 22:33:00 LicLuciano garcia [facility] POCT GLUCOSE (AUTOMATED) 2023-03-01 22:33:00 LicLuciano garcia [facility] POCT GLUCOSE (AUTOMATED) 2023-03-01 16:40:00 LicLuciano garcia [facility] POCT GLUCOSE (AUTOMATED) 2023-03-01 16:40:00 LickLuciano [facility] POCT GLUCOSE (AUTOMATED) 2023-03-01 16:40:00 Lick, Luciano Uni versity [facility] PHOSPHORUS 2023-03-01 16:37:00 [facility] BASIC METABOLIC PANEL 2023-03-01 16:37:00 Jackie Zamudio [facility] (NA, K, CL, CO2, GLUCOSE, Medica l Branch BUN, CREATININE, CA) PHOSPHORUS 2023-03-01 16:37:00 [facility] BASIC METABOLIC PANEL 2023-03-01 16:37:00 [facility] (NA, K, CL, CO2, GLUCOSE, Medica l Branch BUN, CREATININE, CA) PHOSPHORUS 2023-03-01 16:37:00 [facility] BASIC METABOLIC PANEL 2023-03-01 16:37:00 Jackie Zamudio [facility] (NA, K, CL, CO2, GLUCOSE, Medica l Branch BUN, CREATININE, CA) TRANSTHORACIC ECHO (TTE) 2023-03-01 15:52:00 Jackie Zamudio [facility] [place] LIMITED W/ DOPPLER, COLOR Medica l Branch AND CONTRAST TRANSTHORACIC ECHO (TTE) 2023-03-01 15:52:00 Jackie Zamudio [facility] [place] LIMITED W/ DOPPLER, COLOR [facility]ica [facility] AND CONTRAST TRANSTHORACIC ECHO (TTE) 2023-03-01 15:52:00 Jackie Zamudio [facility] [place] LIMITED W/ DOPPLER, COLOR Medica [facility] Branch AND CONTRAST URINALYSIS 2023-03-01 15:07:00 [facility] BLOOD C[facility] SCREEN 2023-03-01 15:07:00 Jackie Zamudio [facility] BLOOD CULTURE SCREEN 2023-03-01 15:07:00 Jackie Zamudio [facility] URINALYSIS 2023-03-01 15:07:00 [facility] 2023-03-01 15:07:00 Jackie Zamudio [facility] URINALYSIS 2023-03-01 15:07:00 Robb [facility] XR CHEST 1 VW 2023-03-01 13:23:00 Robb [facility] XR CHEST 1 VW 2023-03-01 13:23:00 Robb [facility] XR CHEST 1 VW 2023-03-01 13:23:00 Robb [facility] POCT GLUCOSE (AUTOMATED) 2023-03-01 13:13:00 Luciano Long [facility] POCT GLUCOSE (AUTOMATED) 2023-03-01 13:13:00 LicLuciano garcia [facility] POCT GLUCOSE (AUTOMATED) 2023-03-01 13:13:00 Luciano Long [facility] MAGNESIUM 2023-03-01 09:12:00 Robb [facility] PHOSPHORUS 2023-03-01 09:12:00 Robb [facility] HEPATIC FUNCTION PANEL 2023-03-01 09:12:00 Jackie Zamudio [facility] ([id number]) (ALB,T.PRO,BILI [facility] T,BU/BC,ALT,AST,ALK PHOS) PROCALCITONIN 2023-03-01 09:12:00 Robb [facility] THYROID STIMULATING 2023-03-01 09:12:00 Jackie Zamudio [facility] HORMONE [facility] FREE T3 2023-03-01 09:12:00 Robb [facility] FREE T4 2023-03-01 09:12:00 Robb [facility] DIGOXIN 2023-03-01 09:12:00 Robb [facility] CBC WITH DIFF 2023-03-01 09:12:00 Robb [facility] BASIC METABOLIC PANEL 2023-03-01 09:12:00 Jackie Zamudio [facility] (NA, K, CL, CO2, GLUCOSE, Medica l Branch BUN, CREATININE, CA) PROTHROMBIN TIME / INR 2023-03-01 09:12:00 [facility] ACTIVATED PARTIAL 2023-03-01 09:12:00 [place], [facility] EXTRA TUBE RED 2023-03-01 09:12:00 Luciano [facility] PHOSPHORUS 2023-03-01 09:12:00 Robb [facility] MAGNESIUM 2023-03-01 09:12:00 Robb [facility] FREE T4 2023-03-01 09:12:00 Robb [facility] THYROID STIMULATING 2023-03-01 09:12:00 Robb [facility] HORMONE [facility] HEPATIC FUNCTION PANEL 2023-03-01 09:12:00 Robb Jackie [facility] ([id number]) (ALB,T.PRO,BILI Medical Branch T,BU/BC,ALT,AST,ALK PHOS) BASIC METABOLIC PANEL 2023-03-01 09:12:00 Robb [facility] (NA, K, CL, CO2, GLUCOSE, Medica l Branch BUN, CREATININE, CA) DIGOXIN 2023-03-01 09:12:00 Robb [facility] CBC WITH DIFF 2023-03-01 09:12:00 Robb [facility] PROTHROMBIN TIME / INR 2023-03-01 09:12:00 Jackie Zamudio [facility] ACTIVATED PARTIAL 2023-03-01 09:12:00 Rafita [facility] FREE T3 2023-03-01 09:12:00 Robb [facility] PROCALCITONIN 2023-03-01 09:12:00 Robb [facility] EXTRA TUBE RED 2023-03-01 09:12:00 Luciano [facility] PHOSPHORUS 2023-03-01 09:12:00 Robb [facility] MAGNESIUM 2023-03-01 09:12:00 Robb [facility] FREE T4 2023-03-01 09:12:00 Robb [facility] THYROID STIMULATING 2023-03-01 09:12:00 Robb, Jackie [facility] HORMONE [facility] HEPATIC FUNCTION PANEL 2023-03-01 09:12:00 Jackie Zamudio [facility] ([id number]) (ALB,T.PRO,BILI Medical Branch T,BU/BC,ALT,AST,ALK PHOS) BASIC METABOLIC PANEL 2023-03-01 09:12:00 Jackie Zamudio [facility] (NA, K, CL, CO2, GLUCOSE, Medica l Branch BUN, CREATININE, CA) DIGOXIN 2023-03-01 09:12:00 Robb [facility] CBC WITH DIFF 2023-03-01 09:12:00 Robb [facility] PROTHROMBIN TIME / INR 2023-03-01 09:12:00 Jackie Zamudio [facility] ACTIVATED PARTIAL 2023-03-01 09:12:00 Mya Eller [facility] THRMPLAS [facility] FREE T3 2023-03-01 09:12:00 Robb [facility] PROCALCITONIN 2023-03-01 09:12:00 Robb [facility] EXTRA TUBE RED 2023-03-01 09:12:00 Luciano [facility] POCT GLUCOSE (AUTOMATED) 2023-03-01 08:56:00 Luciano Long [facility] POCT GLUCOSE (AUTOMATED) 2023-03-01 08:56:00 LicLuciano garcia [facility] POCT GLUCOSE (AUTOMATED) 2023-03-01 08:56:00 Luciano Long [facility] AC PANEL 20 + LACTIC ACID 2023-03-01 08:54:00 [facility] + LACTIC ACID 2023-03-01 08:54:00 [facility] PANEL [facility] + LACTIC ACID 2023-03-01 08:54:00 Jackie [facility] POCT GLUCOSE (AUTOMATED) 2023-03-01 05:12:00 Luciano Long [facility] POCT GLUCOSE (AUTOMATED) 2023-03-01 05:12:00 L[facility]Luciano [facility]SE (AUTOMATED) 2023-03-01 05:12:00 Lick, Luciano Uni versity [facility] POCT GLUCOSE (AUTOMATED) 2023-03-01 01:36:00 Lick, Luciano [facility] POCT GLUCOSE (AUTOMATED) 2023-03-01 01:36:00 Lick, Luciano [facility] POCT GLUCOSE (AUTOMATED) 2023-03-01 01:36:00 Lick, Luciano Uni [facility] AC PANEL 20 + LACTIC ACID 2023-02-28 21:05:00 Jackie [facility] ACTIV[facility] PARTIAL 2023-02-28 21:05:00 [facility] ACTIVATED PARTIAL 2023-02-28 21:05:00 [facility] AC PANEL 20 + LACTIC ACID 2023-02-28 21:05:00 Jackie Zamudio Un iversity [facility] ACTIVATED PARTIAL 2023-02-28 21:05:00 [facility] AC PANEL 20 + LACTIC ACID 2023-02-28 21:05:00 [facility] PO[facility] GLUCOSE (AUTOMATED) 2023-02-28 20:45:00 LicLuciano garcia Bella [facility] POCT GLUCOSE (AUTOMATED) 2023-02-28 20:45:00 LickLuciano Uni versity [facility] POCT GLUCOSE (AUTOMATED) 2023-02-28 20:45:00 LickuLciano Bella [facility] BASIC METABOLIC PANEL 2023-02-28 17:51:00 Jackie Zamudio [facility] (NA, K, CL, CO2, GLUCOSE, Medica l Branch BUN, CREATININE, CA) PHOSPHORUS 2023-02-28 17:51:00 Clarice Zamudioalisa [place] [facility] N-TERMINAL PRO-BNP 2023-02-28 17:51:00 Jackie Zamudio [facility] y [facility] PHOSPHORUS 2023-02-28 17:51:00 Robb [facility] BASIC METABOLIC PANEL 2023-02-28 17:51:00 Jackie Zamudio [facility] (NA, K, CL, CO2, GLUCOSE, Medica l Branch BUN, CREATININE, CA) N-TERMINAL PRO-BNP 2023-02-28 17:51:00 Jackie Zamudio [facility] PHOSPHORUS 2023-02-28 17:51:00 Robb [facility] BASIC METABOLIC PANEL 2023-02-28 17:51:00 [facility] (NA, K, CL, CO2, GLUCOSE, Medica l Branch BUN, CREATININE, CA) N-TERMINAL PRO-BNP 2023-02-28 17:51:00 Jackie Zamudio [facility] DUPLEX ARTERIAL ARM RIGHT 2023-02-28 17:45:27 Jackie Zamudio [facility] [place] [facility] BY VASCULAR LAB Medical Branch DUPLEX ARTERIAL ARM RIGHT 2023-02-28 17:45:27 Jackie Zamudio [facility] [place] - BY [facility]ASCULAR LAB Medical Branch DUPLEX ARTERIAL ARM RIGHT 2023-02-28 17:45:27 Jackie Zamudio [facility] [place] - BY VASCULAR LAB [facility] POCT GLUCOSE (AUTOMATED) 2023-02-28 16:32:00 Luciano Long [facility] POCT GLUCOSE (AUTOMATED) 2023-02-28 16:32:00 Luciano Long [facility] POCT GLUCOSE (AUTOMATED) 2023-02-28 16:32:00 Luciano Long [facility] AC PANEL 20 + LACTIC ACID 2023-02-28 14:55:00 Jackie Zamudio Un [facility] AC PANEL 20 + LACTIC ACID 2023-02-28 14:55:00 Jackie Zamudio Un iversity of [facility] AC PANEL 20 + LACTIC ACID 2023-02-28 14:55:00 Jackie Zamudio Un [facility] POCT GLUCOSE (AUTOMATED) 2023-02-28 12:39:00 LicLuciano garcia [facility] POCT GLUCOSE (AUTOMATED) 2023-02-28 12:39:00 Lick, Luciano [facility] POCT GLUCOSE (AUTOMATED) 2023-02-28 12:39:00 LicLuciano garcia [facility] POCT GLUCOSE (AUTOMATED) 2023-02-28 12:38:00 LicLuciano garcia [facility] POCT GLUCOSE (AUTOMATED) 2023-02-28 12:38:00 LicLuciano garcia [facility] POCT GLUCOSE (AUTOMATED) 2023-02-28 12:38:00 LicLuciano garcia [facility] ACTIVATED PARTIAL 2023-02-28 10:48:00 [facility] ACTIVATED PARTIAL 2023-02-28 10:48:00 [facility] ACTIVATED PARTIAL 2023-02-28 10:48:00 [facility] XR CHEST 1 VW 2023-02-28 09:30:00 Robb [facility] XR CHEST 1 VW 2023-02-28 09:30:00 Robb [facility] XR CHEST 1 VW 2023-02-28 09:30:00 Robb [facility] MAGNESIUM 2023-02-28 09:26:00 Robb [facility] PHOSPHORUS 2023-02-28 09:26:00 Robb [facility] THYROID STIMULATING 2023-02-28 09:26:00 Robb [facility] HORMONE [facility] FREE T4 2023-02-28 09:26:00 Robb [facility] FREE T3 2023-02-28 09:26:00 Robb [facility] HEPATIC FUNCTION PANEL 2023-02-28 09:26:00 Jackie Zamudio [facility] ([id number]) (ALB,T.PRO,BILI Medical Branch T,BU/BC,ALT,AST,ALK PHOS) DIGOXIN 2023-02-28 09:26:00 [facility]IN 2023-02-28 09:26:00 Robb [facility] CBC WITH DIFF 2023-02-28 09:26:[address] [facility] [place] [place] BASIC METABOLIC PANEL 2023-02-28 09:26:00 Jackie Zamudio [facility] (NA, K, CL, CO2, GLUCOSE, Medica l Branch BUN, CREATININE, CA) PHOSPHORUS 2023-02-28 09:26:00 Robb [facility] MAGNESIUM 2023-02-28 09:26:00 Robb [facility] FREE T4 2023-02-28 09:26:00 Robb [facility] THYROID STIMULATING 2023-02-28 09:26:00 Jackie Zamudio [facility] HEPATIC FUNCTION PANEL 2023-02-28 09:26:00 Jackie Zamudio [facility] ([id number]) (ALB,T.PRO,BILI Medical Branch T,BU/BC,ALT,AST,ALK PHOS) BASIC METABOLIC PANEL 2023-02-28 09:26:00 Jackie Zamudio [facility] (NA, K, CL, CO2, GLUCOSE, Medica l Branch BUN, CREATININE, CA) DIGOXIN 2023-02-28 09:26:00 [facility] CBC WITH DIFF 2023-02-28 09:26:[address] [facility] [place] [place] FREE T3 2023-02-28 09:26:00 Robb [facility] PROCALCITONIN 2023-02-28 09:26:00 Robb [facility] PHOSPHORUS 2023-02-28 09:26:00 Robb [facility] MAGNESIUM 2023-02-28 09:26:00 Robb [facility] FREE T4 2023-02-28 09:26:00 Robb [facility] THYROID STIMULATING 2023-02-28 09:26:00 [facility]-02-28 09:26:00 [id number] (ALB,T.PRO,BILI Medical Branch T,BU/BC,ALT,AST,ALK PHOS) BASIC METABOLIC PANEL 2023-02-28 09:26:00 Clarice Zamudioalisa [facility] (NA, K, CL, CO2, GLUCOSE, Medica l Branch BUN, CREATININE, CA) DIGOXIN 2023-02-28 09:26:00 Robb [facility] CBC WITH DIFF 2023-02-28 09:26:[address] [facility] [place] [place] FREE T3 2023-02-28 09:26:00 Robb [facility] PROCALCITONIN 2023-02-28 09:26:00 [facility] PO[facility]SE (AUTOMATED) 2023-02-28 09:25:00 Luciano Long [facility] POCT GLUCOSE (AUTOMATED) 2023-02-28 09:25:00 Luciano Long [facility] POCT GLUCOSE (AUTOMATED) 2023-02-28 09:25:00 Luciano Long [facility] POCT GLUCOSE (AUTOMATED) 2023-02-28 05:08:00 LickLuciano [facility] POCT GLUCOSE (AUTOMATED) 2023-02-28 05:08:00 LicLuciano garcia [facility] POCT GLUCOSE (AUTOMATED) 2023-02-28 05:08:00 Luciano Long [facility] POCT GLUCOSE (AUTOMATED) 2023-02-28 01:47:00 LicLuciano garcia [facility] POCT GLUCOSE (AUTOMATED) 2023-02-28 01:47:00 LickLuciano [facility] POCT GLUCOSE (AUTOMATED) 2023-02-28 01:47:00 Luciano Long [facility] ACTIVATED PARTIAL 2023-02-27 21:09:00 [facility] POCT GLUCOSE (AUTOMATED) 2023-02-27 21:09:00 LicLuciano garcia [facility] ACTIVATED PARTIAL 2023-02-27 21:09:00 Eller, [facility] POCT GLUCOSE (AUTOMATED) 2023-02-27 21:09:00 Luciano Long [facility] ACTIVATED PARTIAL 2023-02-27 21:09:00 Rafita [facility] POCT GLUCOSE (AUTOMATED) 2023-02-27 21:09:00 Luciano Long [facility] POCT GLUCOSE (AUTOMATED) 2023-02-27 17:12:00 LicLuciano garcia Uni [facility]ity [facility] POCT GLUCOSE (AUTOMATED) 2023-02-27 17:12:00 LicLuciano garcia Uni [facility] POCT GLUCOSE (AUTOMATED) 2023-02-27 17:12:00 Luciano Long [facility] POCT GLUCOSE (AUTOMATED) 2023-02-27 12:59:00 LicLuciano garcia [facility] POCT GLUCOSE (AUTOMATED) 2023-02-27 12:59:00 LicLuciano garcia [facility] POCT GLUCOSE (AUTOMATED) 2023-02-27 12:59:00 LicLuciano garcia [facility] POCT GLUCOSE (AUTOMATED) 2023-02-27 12:12:00 Luciano Long [facility] POCT GLUCOSE (AUTOMATED) 2023-02-27 12:12:00 Luciano Long [facility] POCT GLUCOSE (AUTOMATED) 2023-02-27 12:12:00 Luciano Long [facility] XR CHEST 1 VW 2023-02-27 11:55:[facility] 2023-02-27 11:55:00 [facility] 1 VW 2023-02-27 11:55:00 Robb [facility] POCT GLUCOSE (AUTOMATED) 2023-02-27 11:23:00 Luciano Long [facility] POCT GLUCOSE (AUTOMATED) 2023-02-27 11:23:00 Luciano Long [facility] POCT GLUCOSE (AUTOMATED) 2023-02-27 11:23:00 Luciano Long [facility] POCT GLUCOSE (AUTOMATED) 2023-02-27 10:17:00 Lick, Luciano [facility] POCT GLUCOSE (AUTOMATED) 2023-02-27 10:17:00 Lick, Luciano [facility] POCT GLUCOSE (AUTOMATED) 2023-02-27 10:17:00 Lick Luciano [facility] POCT GLUCOSE (AUTOMATED) 2023-02-27 09:19:00 Lick, Luciano [facility] POCT GLUCOSE (AUTOMATED) 2023-02-27 09:19:00 Lick, Luciano [facility] POCT GLUCOSE (AUTOMATED) 2023-02-27 09:19:00 LicjoseLuciano [facility] MAGNESIUM 2023-02-27 08:26:00 Robb [facility] PHOSPHORUS 2023-02-27 08:26:00 Robb [facility] CORTISOL AM 2023-02-27 08:26:00 [facility] THY[facility] 2023-02-27 08:26:00 Robb [facility] HORMONE [facility] FREE T4 2023-02-27 08:26:00 [facility] FREE T[facility] 2023-02-27 08:26:00 [facility] HEPATIC FUNCTION PANEL 2023-02-27 08:26:00 Jackie Zamudio [facility] ([id number]) (ALB,T.PRO,BILI Medical Branch T,BU/BC,ALT,AST,ALK PHOS) DIGOXIN 2023-02-27 08:26:00 Robb [facility] PROCALCITONIN 2023-02-27 08:26:00 [facility] BASIC METABOLIC PANEL 2023-02-27 08:26:00 Jackie Zamudio [facility] (NA, K, CL, CO2, GLUCOSE, Medica l Branch BUN, CREATININE, CA) ACTIVATED PARTIAL 2023-02-27 08:26:00 Mya Eller [facility] CBC WITH DIFF 2023-02-27 08:26:[address] [facility] [place] [place] PHOSPHORUS 2023-02-27 08:26:00 Robb [facility] MAGNESIUM 2023-02-27 08:26:00 Robb [facility] CORTISOL AM 2023-02-27 08:26:00 Robb [facility] FREE T4 2023-02-27 08:26:00 Robb [facility] THYROID STIMULATING 2023-02-27 08:26:00 Robb [facility] HEPATIC FUNCTION PANEL 2023-02-27 08:26:00 Jackie Zamudio [facility] ([id number]) (ALB,T.PRO,BILI Medical Branch T,BU/BC,ALT,AST,ALK PHOS) BASIC METABOLIC PANEL 2023-02-27 08:26:00 Jackie Zamudio [facility] (NA, K, CL, CO2, GLUCOSE, Medica l Branch BUN, CREATININE, CA) DIGOXIN 2023-02-27 08:26:00 Robb [facility] CBC WITH DIFF 2023-02-27 08:26:[address] [facility] [place], [place] ACTIVATED PARTIAL 2023-02-27 08:26:00 [facility] 2023-02-27 08:26:00 [facility] PROCALCITONIN 2023-02-27 08:26:00 [facility] PHOSPHORUS 2023-02-27 08:26:00 [facility] MAGNESIUM 2023-02-27 08:26:00 [facility] CORTISOL AM 2023-02-27 08:26:00 [facility] FREE T4 2023-02-27 08:26:00 [facility] THYROID STIMULATING 2023-02-27 08:26:00 Clarice Zamudioalisa [facility] HEPATIC FUNCTION PANEL 2023-02-27 08:26:00 Jackie Zamudio [facility] ([id number]) (ALB,T.PRO,BILI Medical Branch T,BU/BC,ALT,AST,ALK PHOS) BASIC METABOLIC PANEL 2023-02-27 08:26:00 Jackie Zamudio [facility] (NA, K, CL, CO2, GLUCOSE, Medica l Branch BUN, CREATININE, CA) DIGOXIN 2023-02-27 08:26:00 Robb [facility] CBC WITH DIFF 2023-02-27 08:26:[address] [facility] [place] [place] ACTIVATED PARTIAL 2023-02-27 08:26:00 Rafita [facility] FREE T3 2023-02-27 08:26:00 Robb [facility] PROCALCITONIN 2023-02-27 08:26:00 Robb [facility] POCT GLUCOSE (AUTOMATED) 2023-02-27 08:15:00 LicLuciano garcia [facility] POCT GLUCOSE (AUTOMATED) 2023-02-27 08:15:00 LicLuciano garcia [facility] POCT GLUCOSE (AUTOMATED) 2023-02-27 08:15:00 LicLuciano garcia [facility] POCT GLUCOSE (AUTOMATED) 2023-02-27 07:10:00 LicLuciano garcia [facility] POCT GLUCOSE (AUTOMATED) 2023-02-27 07:10:00 L[facility]Luciano [facility] PO[facility]UCOSE (AUTOMATED) 2023-02-27 07:10:00 LickLuciano [facility] POCT GLUCOSE (AUTOMATED) 2023-02-27 06:05:00 LickLuciano [facility] POCT GLUCOSE (AUTOMATED) 2023-02-27 06:05:00 LickLuciano [facility] POCT GLUCOSE (AUTOMATED) 2023-02-27 06:05:00 LickLuciano [facility] POCT GLUCOSE (AUTOMATED) 2023-02-27 05:11:00 Lick, Luciano Uni [facility] POCT GLUCOSE (AUTOMATED) 2023-02-27 05:11:00 Lick, Luciano Uni versity of [facility] POCT GLUCOSE (AUTOMATED) 2023-02-27 05:11:00 Lick, Luciano Uni vers[facility] POCT GLUCOSE (AUTOMATED) 2023-02-27 04:24:00 Lick, Lucinao Uni versity of [facility] POCT GLUCOSE (AUTOMATED) 2023-02-27 04:24:00 Lick, Luciano Uni versity of [facility] POCT GLUCOSE (AUTOMATED) 2023-02-27 04:24:00 Lick, Luciano Uni versity of [facility] POCT GLUCOSE (AUTOMATED) 2023-02-27 01:13:00 Lick, Luciano Uni vers[facility] POCT GLUCOSE (AUTOMATED) 2023-02-27 01:13:00 Lick, Luciano Uni [facility] POCT GLUCOSE (AUTOMATED) 2023-02-27 01:13:00 Lick, Luciano Uni [facility] POCT GLUCOSE (AUTOMATED) 2023-02-26 21:10:00 Lick, Luciano Uni [facility] POCT GLUCOSE (AUTOMATED) 2023-02-26 21:10:00 Lick, Luciano Uni [facility] POCT GLUCOSE (AUTOMATED) 2023-02-26 21:10:00 Lick, Luciano Uni vers[facility] CBC WITH DIFF 2023-02-26 21:07:00 [facility] + LACTIC ACID 2023-02-26 21:07:00 Jackie [facility]io [facility] ACTIVATED PARTIAL 2023-02-26 21:07:00 [facility] DIFF 2023-02-26 21:07:00 [facility] ACT[facility]ATED PARTIAL 2023-02-26 21:07:00 [facility] PANEL 20 + LACTIC ACID 2023-02-26 21:07:00 Jackie [facility]udio [facility] CBC WITH DIFF 2023-02-26 21:07:00 Robb, Jackie [facility] ACTIVATED PARTIAL 2023-02-26 21:07:00 [facility] AC PANEL 20 + LACTIC ACID 2023-02-26 21:07:00 Jackie Zamudio [facility] POCT GLUCOSE (AUTOMATED) 2023-02-26 16:29:00 Lick, Luciano [facility] POCT GLUCOSE (AUTOMATED) 2023-02-26 16:29:00 Lick, Luciano Uni [facility] POCT GLUCOSE (AUTOMATED) 2023-02-26 16:29:00 Lick, Luciano Uni [facility] POCT GLUCOSE (AUTOMATED) 2023-02-26 14:35:00 Lick, Luciano [facility] POCT GLUCOSE (AUTOMATED) 2023-02-26 14:35:00 Lick, Luciano [facility] POCT GLUCOSE (AUTOMATED) 2023-02-26 14:35:00 LicLuciano garcia Bella [facility] TRANSFUSE PACKED RBC 2023-02-26 13:30:00 Vu [facility] TRANSFUSE PACKED RBC 2023-02-26 13:30:00 Vu, [facility] TRANSFUSE PACKED RBC 2023-02-26 13:30:00 Vu [facility] POCT GLUCOSE (AUTOMATED) 2023-02-26 13:27:00 LicLuciano garcia Bella [facility] POCT GLUCOSE (AUTOMATED) 2023-02-26 13:27:00 LicLuciano garcia [facility] POCT GLUCOSE (AUTOMATED) 2023-02-26 13:27:00 LicLuciano garcia Bella [facility] PREPARE PACKED RBC 2023-02-26 12:56:29 , [facility] PREPARE PACKED RBC 2023-02-26 12:56:29 Vu, [facility] PREPARE PACKED RBC 2023-02-26 12:56:29 , [facility] POCT GLUCOSE (AUTOMATED) 2023-02-26 12:27:00 Luciano Long versity of [facility] POCT GLUCOSE (AUTOMATED) 2023-02-26 12:27:00 Luciano Long versity of [facility] POCT GLUCOSE (AUTOMATED) 2023-02-26 12:27:00 Luciano Long versity [facility] HB ABO GROUPING 2023-02-26 11:43:00 Vu [facility] HB ABO GROUPING 2023-02-26 11:43:00 Vu, [facility] HB ABO GROUPING 2023-02-26 11:43:00 [facility] ACTIVATED PARTIAL 2023-02-26 11:29:00 [facility] ACTIVATED PARTIAL 2023-02-26 11:29:00 [facility] ACTIVATED PARTIAL 2023-02-26 11:29:00 [facility] POCT GLUCOSE (AUTOMATED) 2023-02-26 11:25:00 Luciano Long versity of [facility] POCT GLUCOSE (AUTOMATED) 2023-02-26 11:25:00 Luciano Long vers[facility] POCT GLUCOSE (AUTOMATED) 2023-02-26 11:25:00 Luciano Long vers[facility] POCT GLUCOSE (AUTOMATED) 2023-02-26 10:27:00 Luciano Long vers[facility] POCT GLUCOSE (AUTOMATED) 2023-02-26 10:27:00 Luciano Long vers[facility] POCT GLUCOSE (AUTOMATED) 2023-02-26 10:27:00 Luciano Long versity [facility] XR CHEST 1 VW 2023-02-26 10:20:00 Robb [facility] XR CHEST 1 VW 2023-02-26 10:20:00 Robb [facility] XR CHEST 1 VW 2023-02-26 10:20:00 Robb [facility] MAGNESIUM 2023-02-26 09:44:00 [facility] PHOS[facility]US 2023-02-26 09:44:00 Robb [facility] CORTISOL AM 2023-02-26 09:44:00 Robb [facility] THYROID STIMULATING 2023-02-26 09:44:00 [facility] FREE T4 2023-02-26 09:44:00 Robb [facility] FREE T3 2023-02-26 09:44:00 Robb [facility] HEPATIC FUNCTION PANEL 2023-02-26 09:44:00 Jackie Zamudio [facility] ([id number]) (ALB,T.PRO,[facility] T,BU/BC,ALT,AST,ALK PHOS) CBC WITH DIFF 2023-02-26 09:44:00 Robb [facility] BASIC METABOLIC PANEL 2023-02-26 09:44:00 Jackie Zamudio [facility] (NA, K, CL, CO2, GLUCOSE, Medica l Branch BUN, CREATININE, CA) LIPID PANEL ([id number])(TOTAL 2023-02-26 09:44:00 Jackie Zamudio [facility] CHOLESTEROL, Medical Branch TRIGLYCERIDES, HDL) LIPASE 2023-02-26 09:44:00 Carli [facility] PHOSPHORUS 2023-02-26 09:44:00 Robb [facility] LIPASE 2023-02-26 09:44:00 Carli [facility] MAGNESIUM 2023-02-26 09:44:00 Robb [facility] CORTISOL AM 2023-02-26 09:44:00 Robb [facility] FREE T4 2023-02-26 09:44:00 Robb [facility] THYROID STIMULATING 2023-02-26 09:44:00 [facility] HEPATIC FUNCTION PANEL 2023-02-26 09:44:00 Jackie Zamudio [facility] ([id number]) (ALB,T.PRO,BILI Medical Branch T,BU/BC,ALT,AST,ALK PHOS) BASIC METABOLIC PANEL 2023-02-26 09:44:00 Jackie Zamudio [facility] (NA, K, CL, CO2, GLUCOSE, Medica l Branch BUN, CREATININE, CA) LIPID PANEL ([id number])(TOTAL 2023-02-26 09:44:00 Jackie Zamudio [facility] CHOLESTEROL, Medical Branch TRIGLYCERIDES, HDL) CBC WITH DIFF 2023-02-26 09:44:00 Robb [facility] FREE T3 2023-02-26 09:44:00 [facility] 2023-02-26 09:44:00 Robb [facility] LIPASE 2023-02-26 09:44:[facility]23-02-26 09:44:00 [facility] CORT[facility]OL AM 2023-02-26 09:44:00 Robb [facility] FREE T4 2023-02-26 09:44:00 [facility] THYROID STIMULATING 2023-02-26 09:44:00 Jackie Zamudio [facility] HORMONE Medical Branch HEPATIC FUNCTION PANEL 2023-02-26 09:44:00 Jackie Zamudio [facility] ([id number]) (AL[facility] T,BU/BC,ALT,AST,ALK PHOS) BASIC METABOLIC PANEL 2023-02-26 09:44:00 Jackie Zamudio [facility] (NA, K, CL, CO2, GLUCOSE, Medica l Branch BUN, CREATININE, CA) LIPID PANEL ([id number])(TOTAL 2023-02-26 09:44:00 Jackie Zamudio [facility] CHOLESTEROL, Medical Branch TRIGLYCERIDES, HDL) CBC WITH DIFF 2023-02-26 09:44:00 Robb [facility] FREE T3 2023-02-26 09:44:00 Robb [facility] POCT GLUCOSE (AUTOMATED) 2023-02-26 09:41:00 Luciano Long [facility] POCT GLUCOSE (AUTOMATED) 2023-02-26 09:41:00 Lick, Luciano [facility] POCT GLUCOSE (AUTOMATED) 2023-02-26 09:41:00 Lick, Luciano [facility] POCT GLUCOSE (AUTOMATED) 2023-02-26 08:34:00 Lick, Luciano [facility] POCT GLUCOSE (AUTOMATED) 2023-02-26 08:34:00 Lick, Luciano [facility] POCT GLUCOSE (AUTOMATED) 2023-02-26 08:34:00 Lick, Luciano [facility] POCT GLUCOSE (AUTOMATED) 2023-02-26 07:41:00 Lick, Luciano [facility] POCT GLUCOSE (AUTOMATED) 2023-02-26 07:41:00 Lick, Luciano [facility] POCT GLUCOSE (AUTOMATED) 2023-02-26 07:41:00 Lick, Luciano [facility] POCT GLUCOSE (AUTOMATED) 2023-02-26 06:42:00 Lick, Luciano [facility] POCT GLUCOSE (AUTOMATED) 2023-02-26 06:42:00 Lick, Luciano [facility] POCT GLUCOSE (AUTOMATED) 2023-02-26 06:42:00 Lick, Luciano [facility] POCT GLUCOSE (AUTOMATED) 2023-02-26 05:38:00 Lick, Luciano [facility] POCT GLUCOSE (AUTOMATED) 2023-02-26 05:38:00 Lick, Luciano [facility] POCT GLUCOSE (AUTOMATED) 2023-02-26 05:38:00 Lick, Luciano [facility] POCT GLUCOSE (AUTOMATED) 2023-02-26 04:28:00 Lick, Luciano [facility] POCT GLUCOSE (AUTOMATED) 2023-02-26 04:28:00 Lick, Luciano [facility] POCT GLUCOSE (AUTOMATED) 2023-02-26 04:28:00 Lick, Luciano [facility] POCT GLUCOSE (AUTOMATED) 2023-02-26 03:32:00 Lick, Luciano Blanco versity of [facility] POCT GLUCOSE (AUTOMATED) 2023-02-26 03:32:00 Lick, Luciano Uni [facility] POCT GLUCOSE (AUTOMATED) 2023-02-26 03:32:00 Lick, Luciano [facility] POCT GLUCOSE (AUTOMATED) 2023-02-26 01:05:00 Lick, Luciano [facility] POCT GLUCOSE (AUTOMATED) 2023-02-26 01:05:00 Lick, Luciano [facility] POCT GLUCOSE (AUTOMATED) 2023-02-26 01:05:00 Lick, Luciano [facility] POCT GLUCOSE (AUTOMATED) 2023-02-25 20:57:00 Lick, Luciano Blanco vers[facility] POCT GLUCOSE (AUTOMATED) 2023-02-25 20:57:00 Lick, Luciano Blanco versity [facility] POCT GLUCOSE (AUTOMATED) 2023-02-25 20:57:00 Lick, Luciano Bella [facility] DIGOXIN 2023-02-25 20:50:00 [facility] ACTIVATED PARTIAL 2023-02-25 20:50:00 Rafita [facility] PROCALCITONIN 2023-02-25 20:50:00 [facility] MISCELLANE[facility] SEND OUT 2023-02-25 20:50:00 Jackie Zamudio [facility] FUNGUS (BLOOD) CULTURE 2023-02-25 20:50:00 Jackie Zamudio [facility] DIGOXIN 2023-02-25 20:50:00 Clarice [facility] ACTIVATED PARTIAL 2023-02-25 20:50:00 Rafita [facility] FUNGUS (BLOOD) CULTURE 2023-02-25 20:50:00 Jackie Zamudio [facility] MISCELLANEOUS SEND OUT 2023-02-25 20:50:00 Jackie Zamudio [facility] PROCALCITONIN 2023-02-25 20:50:00 Robb, [facility] DIGOXIN 2023-02-25 20:50:00 Robb [facility] ACTIVATED PARTIAL 2023-02-25 20:50:00 Rafita [facility] FUNGUS (BLOOD) CULTURE 2023-02-25 20:50:00 Clarice [facility]ioalisa [facility] MISCELLANEOUS SEND OUT 2023-02-25 20:50:00 [facility] PROCALCITONIN 2023-02-25 20:50:00 Robb [facility] POCT GLUCOSE (AUTOMATED) 2023-02-25 17:24:00 Luciano Long [facility] POCT GLUCOSE (AUTOMATED) 2023-02-25 17:24:00 Luciano Long [facility] POCT GLUCOSE (AUTOMATED) 2023-02-25 17:24:00 Luciano Long [facility] XR CHEST 1 VW 2023-02-25 14:06:00 [facility] XR CHEST 1 VW 2023-02-25 14:06[facility]00 [facility] XR CHEST 1 VW 2023-02-25 14:06:00 [facility] POCT GLUCOSE (AUTOMATED) 2023-02-25 13:14:00 Luciano Long [facility] POCT GLUCOSE (AUTOMATED) 2023-02-25 13:14:00 Luciano Long [facility] POCT GLUCOSE (AUTOMATED) 2023-02-25 13:14:00 Luciano Long [facility] MAGNESIUM 2023-02-25 09:14:00 [facility] PHOS[facility]US 2023-02-25 09:14:00 Alisa [facility] CBC WITH DIFF 2023-02-25 09:14:00 True [facility] BASIC METABOLIC PANEL 2023-02-25 09:14:00 Tania Biswas [facility] (NA, K, CL, CO2, GLUCOSE, Medica l Branch BUN, CREATININE, CA) HEPATIC FUNCTION PANEL 2023-02-25 09:14:00 Tania Biswas [facility] ([id number]) (ALB,T.PRO,BILI Medical Branch T,BU/BC,ALT,AST,ALK PHOS) ACTIVATED PARTIAL 2023-02-25 09:14:00 [facility] PHOSPHORUS 2023-02-25 09:14:00 Alisa [facility] MAGNESIUM 2023-02-25 09:14:00 Alisa [facility] HEPATIC FUNCTION PANEL 2023-02-25 09:14:00 Tania Biswas [facility] ([id number]) (ALB,T.PRO,BILI Medical Branch T,BU/BC,ALT,AST,ALK PHOS) BASIC METABOLIC PANEL 2023-02-25 09:14:00 Tania Biswas [facility] (NA, K, CL, CO2, GLUCOSE, Medica l Branch BUN, CREATININE, CA) CBC WITH DIFF 2023-02-25 09:14:00 [facility] 2023-02-25 09:14:00 [facility] PHOSPHORUS 2023-02-25 09:14:00 Alisa [facility] MAGNESIUM 2023-02-25 09:14:00 Alisa [facility] HEPATIC FUNCTION PANEL 2023-02-25 09:14:00 Tania Biswas [facility] ([id number]) (ALB,T.PRO,BILI Medical Branch T,BU/BC,ALT,AST,ALK PHOS) BASIC METABOLIC PANEL 2023-02-25 09:14:00 [facility] (NA, K, CL, CO2, GLUCOSE, Medica l Branch BUN, CREATININE, CA) CBC WITH DIFF 2023-02-25 09:14:00 True [facility] ACTIVATED PARTIAL 2023-02-25 09:14:00 [facility] POCT GLUCOSE (AUTOMATED) 2023-02-25 09:13:00 Luciano Long Bella vers[facility] POCT GLUCOSE (AUTOMATED) 2023-02-25 09:13:00 Luciano Long Bella [facility] POCT GLUCOSE (AUTOMATED) 2023-02-25 09:13:00 Luciano Long Bella vers[facility] AC PANEL 20 + LACTIC ACID 2023-02-25 05:11:00 Kae Boyce Un iversity [facility] AC PANEL 20 + LACTIC ACID 2023-02-25 05:11:00 Kae Boyce Un [facility] AC PANEL 20 + LACTIC ACID 2023-02-25 05:11:00 Kae Boyce Un [facility] POCT GLUCOSE (AUTOMATED) 2023-02-25 00:50:00 Luciano Long Bella vers[facility] POCT GLUCOSE (AUTOMATED) 2023-02-25 00:50:00 LicLuciano garcia Bella vers[facility] POCT GLUCOSE (AUTOMATED) 2023-02-25 00:50:00 Luciano Long vers[facility] AC PANEL 20 + LACTIC ACID 2023-02-24 21:20:00 Kae Boyce Un [facility] AC PANEL 20 + LACTIC ACID 2023-02-24 21:20:00 Kae Boyce Un [facility] AC PANEL 20 + LACTIC ACID 2023-02-24 21:20:00 Kae Boyce Un [facility] PHOSPHORUS 2023-02-24 21:18:00 [facility] ACTIVATED PARTIAL 2023-02-24 21:18:00 Rafita [facility] PHOSPHORUS 2023-02-24 21:18:00 [facility] ACTIV[facility] PARTIAL 2023-02-24 21:18:00 Rafita [facility] PHOSPHORUS 2023-02-24 21:18:00 [facility] ACTIVATED PARTIAL 2023-02-24 21:18:00 Rafita [facility] POCT GLUCOSE (AUTOMATED) 2023-02-24 20:29:00 Luciano Long versity [facility] POCT GLUCOSE (AUTOMATED) 2023-02-24 20:29:00 LicLuciano garcia Uni versity [facility] POCT GLUCOSE (AUTOMATED) 2023-02-24 20:29:00 [facility] GALL BLADDER 2023-02-24 20:10:00 [facility] GALL BLADDER 2023-02-24 20:10:00 [facility] GALL BLADDER 2023-02-24 20:10:00 [facility] PO[facility] GLUCOSE (AUTOMATED) 2023-02-24 17:47:00 Luciano Long versity [facility] POCT GLUCOSE (AUTOMATED) 2023-02-24 17:47:00 LicLuciano garcia versity [facility] POCT GLUCOSE (AUTOMATED) 2023-02-24 17:47:00 Luciano Long [facility] AC PANEL 20 + LACTIC ACID 2023-02-24 13:45:00 ElenaLudwig cochran [facility] AC PANEL 20 + LACTIC ACID 2023-02-24 13:45:00 ElenaLudwig cochran [facility] AC PANEL 20 + LACTIC ACID 2023-02-24 13:45:00 Ludwig Parker [facility] ACTIVATED PARTIAL 2023-02-24 09:19:00 Rafita [facility] ACTIVATED PARTIAL 2023-02-24 09:19:00 [facility] 2023-02-24 09:19:00 Rafita [facility] POCT GLUCOSE (AUTOMATED) 2023-02-24 09:18:00 LicLuciano garcia versity [facility] POCT GLUCOSE (AUTOMATED) 2023-02-24 09:18:00 Lick, Luciano [facility] POCT GLUCOSE (AUTOMATED) 2023-02-24 09:18:00 Luciano Long [facility] URINE CULTURE 2023-02-24 08:21:[address] [facility] [place] [place] URINE CULTURE 2023-02-24 08:21:00 [facility] 20[facility]-02-24 08:21:[address] [facility] [place] [place] MAGNESIUM 2023-02-24 07:26:00 Alisa [facility] PHOSPHORUS 2023-02-24 07:26[facility] WITHOUT DIFF 2023-02-24 07:26:00 [facility] BASIC METABOLIC PANEL 2023-02-24 07:26:00 [facility] (NA, K, CL, CO2, GLUCOSE, Medica l Branch BUN, CREATININE, CA) HEPATIC FUNCTION PANEL 2023-02-24 07:26:00 [facility] ([id number] (ALB,T.PRO,BILI Medical Branch T,BU/BC,ALT,AST,ALK PHOS) CBC WITH DIFF 2023-02-24 07:26:00 [facility] FREE T3 2023-02-24 07:26:00 [facility]4 2023-02-24 07:26:00 True [facility] LIPID PANEL ([id number])(TOTAL 2023-02-24 07:26:00 [facility]LE[facility], [facility] TRIGLYCERIDES, HDL) PHOSPHORUS 2023-02-24 07:26:00 Alisa [facility] MAGNESIUM 2023-02-24 07:26:00 [facility] T4 2023-02-24 07:26:00 [facility] HEPAT[facility] FUNCTION PANEL 2023-02-24 07:26:00 [facility] ([id number] (ALB,T.PRO,BILI Medical Branch T,BU/BC,ALT,AST,ALK PHOS) BASIC METABOLIC PANEL 2023-02-24 07:26:00 [facility] (NA, K, CL, CO2, GLUCOSE, Medica l Branch BUN, CREATININE, CA) LIPID PANEL ([id number])(TOTAL 2023-02-24 07:26:00 Tania Biswas [facility] CHOLESTEROL, Medical Branch TRIGLYCERIDES, HDL) CBC WITHOUT DIFF 2023-02-24 07:26:00 [facility] CBC WITH DIFF 2023-02-24 07:26:00 [facility] 2023-02-24 07:26:00 True [facility] PHOSPHORUS 2023-02-24 07:26:00 Alisa [facility] MAGNESIUM 2023-02-24 07:26:00 [facility] T4 2023-02-24 07:26:00 True [facility] HEPATIC FUNCTION PANEL 2023-02-24 07:26:00 [facility] ([id number]) (ALB,T.PRO,BILI Medical Branch T,BU/BC,ALT,AST,ALK PHOS) BASIC METABOLIC PANEL 2023-02-24 07:26:00 [facility] (NA, K, CL, CO2, GLUCOSE, Medica l Branch BUN, CREATININE, CA) LIPID PANEL ([id number])(TOTAL 2023-02-24 07:26:00 Tania Biswas [facility] CHOLESTEROL, Medical Branch TRIGLYCERIDES, HDL) CBC WITHOUT DIFF 2023-02-24 07:26:00 Rafita [facility] CBC WITH DIFF 2023-02-24 07:26:00 [facility] 2023-02-24 07:26:00 True [facility] AC PANEL 20 + LACTIC ACID 2023-02-24 07:23:00 Alisa, [facility] + LACTIC ACID 2023-02-24 07:23:00 Shavon Cuellar [facility] AC PANEL 20 + LACTIC ACID 2023-02-24 07:23:00 Shavon [facility] CLOSTRIDIUM DIFFICILE 2023-02-24 07:19:00 [facility] 2023-02-24 07:19:00 [facility] CLOSTRIDIUM DIFFICILE 2023-02-24 07:19:00 Lashay Samayoa Un [facility] BLOOD CULTURE SCREEN 2023-02-24 05:36:00 [place], [facility] CORTISOL PM SERUM 2023-02-24 05:36:00 Elena, [facility] THYROID STIMULATING 2023-02-24 05:36:00 Elena, [facility] FUNGUS (BLOOD) CULTURE 2023-02-24 05:36:00 [place], [facility] BLOOD CULTURE SCREEN 2023-02-24 05:36:00 [place]Al[facility] CORTISOL PM SERUM 2023-02-24 05:36:00 [place], [facility] THYROID STIMULATING 2023-02-24 05:36:00 [place], [facility] FUNGUS (BLOOD) CULTURE 2023-02-24 05:36:[address] [facility] BLOOD CULTURE SCREEN 2023-02-24 05:36:00 [place], [facility] CORTISOL PM SERUM 2023-02-24 05:36:00 Elena [facility] THYROID STIMULATING 2023-02-24 05:36:00 Elena, [facility] FUNGUS (BLOOD) CULTURE 2023-02-24 05:36:00 Elena [facility] POCT GLUCOSE (AUTOMATED) 2023-02-24 05:17:00 Luciano Long [facility] POCT GLUCOSE (AUTOMATED) 2023-02-24 05:17:00 Luciano Long [facility] POCT GLUCOSE (AUTOMATED) 2023-02-24 05:17:00 Luciano Long [facility] SPUTUM CULTURE 2023-02-24 02:52:[address] [facility] [place] [place] SPUTUM CULTURE 2023-02-24 02:52:00 [place], [facility] [place] [place] SPUTUM CULTURE 2023-02-24 02:52:00 Elena, [facility] [place] [place] VANCOMYCIN RANDOM LEVEL 2023-02-24 02:49:00 Luciano Long [facility] DIGOXIN 2023-02-24 02:49:[address] [facility] [place] [place] DIGOXIN 2023-02-24 02:49:00 Elena, [facility] [place] [place] VANCOMYCIN RANDOM LEVEL 2023-02-24 02:49:00 Berhane [facility] DIGOXIN 2023-02-24 02:49:[address] [facility] [place] [place] VANCOMYCIN RANDOM LEVEL 2023-02-24 02:49:00 Luciano Long [facility] AC PANEL 20 + LACTIC ACID 2023-02-24 01:20:00 Kae Boyce [facility] AC PANEL 20 + LACTIC ACID 2023-02-24 01:20:00 Kae Boyce [facility] AC PANEL 20 + LACTIC ACID 2023-02-24 01:20:00 Kae Boyce [facility] AC PANEL 20 + LACTIC ACID 2023-02-23 21:15:00 Kae Boyce [facility] AC PANEL 20 + LACTIC ACID 2023-02-23 21:15:00 Kae Boyce [facility] AC PANEL 20 + LACTIC ACID 2023-02-23 21:15:00 Kae Boyce [facility] AC PANEL 20 + LACTIC ACID 2023-02-23 18:04:00 [facility] + LACTIC ACID 2023-02-23 18:04:00 Natalimackenzie Kae [facility] AC PANEL 20 + LACTIC ACID 2023-02-23 18:04:00 NatalimackenzieKae [facility] E[facility]-12 LEAD 2023-02-23 17:58:[address] [facility] EKG-12 LEAD 2023-02-23 17:58:[address] [facility] EKG-12 LEAD 2023-02-23 17:58:[address] [facility] TRANSFUSE PACKED RBC 2023-02-23 17:05:00 Elena [facility] TRANSFUSE PACKED RBC 2023-02-23 17:05:00 [place], [facility] TRANSFUSE PACKED RBC 2023-02-23 17:05:00 Elena [facility] PREPARE PACKED RBC 2023-02-23 16:56:48 [place], [facility] PREPARE PACKED RBC 2023-02-23 16:56:48 Elena [facility] PREPARE PACKED RBC 2023-02-23 16:56:48 Elena [facility] VANCOMYCIN RANDOM LEVEL 2023-02-23 16:08:00 Mya Eller [facility] PHOSPHORUS 2023-02-23 16:08:00 [facility] ACTIVATED PARTIAL 2023-02-23 16:08:00 Mya Eller [facility] PHOSPHORUS 2023-02-23 16:08[facility]00 [facility] VANCOMYCIN RANDOM LEVEL 2023-02-23 16:08:00 Mya Eller [facility] ACTIVATED PARTIAL 2023-02-23 16:08:00 Mya Eller [facility] PHOSPHORUS 2023-02-23 16:08:00 [facility] VANCOMYCIN RANDOM LEVEL 2023-02-23 16:08:00 Mya Eller Un [facility] ACTIVATED PARTIAL 2023-02-23 16:08:00 Mya Eller [facility] THRLAS [facility] AC PANEL 20 + LACTIC ACID 2023-02-23 12:28:00 [facility] + LACTIC ACID 2023-02-23 12:28:00 Kae [facility]ce [facility] AC PANEL 20 + LACTIC ACID 2023-02-23 12:28:00 Kae Boyce [facility] POCT GLUCOSE (AUTOMATED) 2023-02-23 08:17:00 LicLuciano garcia [facility] POCT GLUCOSE (AUTOMATED) 2023-02-23 08:17:00 LicLuciano garcia [facility] POCT GLUCOSE (AUTOMATED) 2023-02-23 08:17:00 LickLuciano [facility] MAGNESIUM 2023-02-23 08:03[facility]:03[facility] WITHOUT DIFF 2023-02-23 08:03:00 Tee [facility] BASIC METABOLIC PANEL 2023-02-23 08:03:00 Kae Boyce [facility] (NA, K, CL, CO2, GLUCOSE, Medica l Branch BUN, CREATININE, CA) HEPATIC FUNCTION PANEL 2023-02-23 08:03:00 Marilyn Noe [facility] ([id number]) (ALB,T.PRO,BIL Medical Branch T,BU/BC,ALT,AST,ALK PHOS) PHOSPHORUS 2023-02-23 08:03:00 [facility] 2023-02-23 08:03:00 Alisa [facility] HEPATIC FUNCTION PANEL 2023-02-23 08:03:00 Marilyn Noe [facility] ([id number]) (ALB,T.PRO,BILI Medical Branch T,BU/BC,ALT,AST,ALK PHOS) BASIC METABOLIC PANEL 2023-02-23 08:03:00 [facility] (NA, K, CL, CO2, GLUCOSE, Medica l Branch BUN, CREATININE, CA) CBC WITHOUT DIFF 2023-02-23 08:03:00 Tee [facility] PHOSPHORUS 2023-02-23 08:03:00 [facility] 2023-02-23 08:03[facility]00 [facility] 2023-02-23 08:03:00 Marilyn Noe [facility] ([id number]) (ALB,T.PRO,[facility] Medical Branch T,BU/BC,ALT,AST,ALK PHOS) BASIC METABOLIC PANEL 2023-02-23 08:03:00 [facility] (NA, K, CL, CO2, GLUCOSE, Medica l Branch BUN, CREATININE, CA) CBC WITHOUT DIFF 2023-02-23 08:03:00 Tee [facility] AC PANEL 20 + LACTIC ACID 2023-02-23 06:43:00 Ghazal Sims Un [facility] AC PANEL 20 + LACTIC ACID 2023-02-23 06:43:00 Levi MimiAnkit Un [facility] AC PANEL 20 + LACTIC ACID 2023-02-23 06:43:00 Ghazal Sims Un [facility] POCT GLUCOSE (AUTOMATED) 2023-02-23 05:02:00 Luciano Long [facility] POCT GLUCOSE (AUTOMATED) 2023-02-23 05:02:00 Luciano Long [facility] POCT GLUCOSE (AUTOMATED) 2023-02-23 05:02:00 Luciano Long [facility] VANCOMYCIN TROUGH 2023-02-23 03:58:00 Jackie Zamudio [facility] ACTIVATED PARTIAL 2023-02-23 03:58:00 Rafita [facility] VANCOMYCIN TROUGH 2023-02-23 03:58:00 Jackie Zamudio [facility] ACTIVATED PARTIAL 2023-02-23 03:58:00 Mya Eller [facility] VANCOMYCIN TROUGH 2023-02-23 03:58:00 Jackie Zamudio [facility] ACTIVATED PARTIAL 2023-02-23 03:58:00 Mya Eller [facility] AC PANEL 20 + LACTIC ACID 2023-02-23 00:36:00 Jackie [facility] AC PANEL 20 + LACTIC ACID 2023-02-23 00:36:00 Jackie [facility] AC PANEL 20 + LACTIC ACID 2023-02-23 00:36:00 Jackie Zamudio [facility] TRANSFUSE PACKED RBC 2023-02-22 22:15:00 [place], [facility] TRANSFUSE PACKED RBC 2023-02-22 22:15:00 Elena [facility] TRANSFUSE PACKED RBC 2023-02-22 22:15:00 Elena [facility] PREPARE PACKED RBC 2023-02-22 22:08:32 Elena [facility] PREPARE PACKED RBC 2023-02-22 22:08:32 [place] [facility] PREPARE PACKED RBC 2023-02-22 22:08:32 Elena [facility] ACTIVATED PARTIAL 2023-02-22 22:06:00 Mya Eller [facility] PROTHROMBIN TIME / INR 2023-02-22 22:06:[address] [facility] PROTHROMBIN TIME / INR 2023-02-22 22:06:[address] [facility] ACTIVATED PARTIAL 2023-02-22 22:06:00 Mya Eller [facility] PROTHROMBIN TIME / INR 2023-02-22 22:06:[address] [facility] ACTIVATED PARTIAL 2023-02-22 22:06:00 Mya Eller [facility] PHOS[facility]US 2023-02-22 20:47:00 Pac[facility] HB ABO GROUPING 2023-02-22 20:47:00 [place], [facility] [place] [place] PHOSPHORUS 2023-02-22 20:47:00 Pac[facility] HB ABO GROUPING 2023-02-22 20:47:00 Elena, [facility] [place] PHOSPHORUS 2023-02-22 20:47:00 Paco [facility] HB ABO GROUPING 2023-02-22 20:47:00 [place], [facility] [place] [place] AC PANEL 20 + LACTIC ACID 2023-02-22 20:46:00 Ghazal Sims [facility] AC PANEL 20 + LACTIC ACID 2023-02-22 20:46:00 Ghazal Sims [facility] AC PANEL 20 + LACTIC ACID 2023-02-22 20:46:00 Ghazal Sims [facility] AC PANEL 20 + LACTIC ACID 2023-02-22 19:01:00 Ghazal Sims Un [facility] AC PANEL 20 + LACTIC ACID 2023-02-22 19:01:00 Ghazal Sims Un i[facility] AC PANEL 20 + LACTIC ACID 2023-02-22 19:01:00 Ghazal Sims [facility] US DUPLEX VENOUS ARM 2023-02-22 17:18:03 Ghazal Sims [facility] RIGHT - BY VASCULAR LAB Medical Branch US DUPLEX VENOUS ARM 2023-02-22 17:18:03 Ghazal Sims [facility] RIGHT - BY VASCULAR LAB Medical Branch US DUPLEX VENOUS ARM 2023-02-22 17:18:03 Ghazal Sims [facility] RIGHT - BY VASCULAR LAB Medical Branch DUPLEX ARTERIAL ARM RIGHT 2023-02-22 17:17:49 Ghazal Sims [facility] [place] - BY VASCULAR LAB Medical Branch DUPLEX ARTERIAL ARM RIGHT 2023-02-22 17:17:49 Ghazal Sims [facility] [place] - BY VASCULAR LAB Medical Branch DUPLEX ARTERIAL ARM RIGHT 2023-02-22 17:17:49 Ghazal Sims [facility] [place] - BY VASCULAR LAB [facility] POCT GLUCOSE (AUTOMATED) 2023-02-22 16:55:00 LicLuciano garcia [facility] POCT GLUCOSE (AUTOMATED) 2023-02-22 16:55:00 LickLuciano [facility] POCT GLUCOSE (AUTOMATED) 2023-02-22 16:55:00 Luciano Long [facility] SPUTUM CULTURE 2023-02-22 16:31[facility]23-02-22 16:31:00 [facility] SPUTUM CULTURE 2023-02-22 16:31:[address] [facility] BASIC METABOLIC PANEL 2023-02-22 15:04:00 Jackie Zamudio [facility] (NA, K, CL, CO2, GLUCOSE, Medica l Branch BUN, CREATININE, CA) VANCOMYCIN TROUGH 2023-02-22 15:04:00 Elena [facility] BASIC METABOLIC PANEL 2023-02-22 15:04:00 Jackie Zamudio [facility] (NA, K, CL, CO2, GLUCOSE, Medica l Branch BUN, CREATININE, CA) VANCOMYCIN TROUGH 2023-02-22 15:04:00 [facility] 2023-02-22 15:04:00 Jackie Zamudio [facility] (NA, K, CL, CO2, GLUCOSE, Medica l Branch BUN, CREATININE, CA) VANCOMYCIN TROUGH 2023-02-22 15:04:00 [facility] + LACTIC ACID 2023-02-22 13:07:00 Jackie Zamudio [facility] AC PANEL 20 + LACTIC ACID 2023-02-22 13:07:00 Jackie Zamudio [facility] AC PANEL 20 + LACTIC ACID 2023-02-22 13:07:00 Jakcie Zamudio [facility] XR CHEST 1 2023-02-22 12:45:00 [facility] XR CHEST 1 2023-02-22 12:45:00 [facility] XR CHEST 1 2023-02-22 12:45:00 [facility] XR CHEST 1 2023-02-22 11:04:00 [facility] XR CHEST 1 2023-02-22 11:04:00 [facility] XR CHEST 1 2023-02-22 11:04:00 [facility] AC PANEL 20 + LACTIC ACID 2023-02-22 10:28:00 Jackie Zamudio [facility] AC PANEL 20 + LACTIC ACID 2023-02-22 10:28:00 Jackie Zamudio [facility] AC PANEL 20 + LACTIC ACID 2023-02-22 10:28:00 Jcakie Zamudio [facility] MAGNESIUM 2023-02-22 08:11:00 [facility]-22 08:11[facility]00 [facility] WITHOUT DIFF 2023-02-22 08:11:00 Sixto Oliveira [facility] HEPATIC FUNCTION PANEL 2023-02-22 08:11:00 Jackie Zamudio [facility] ([id number]) (ALB,T.PRO,BILI Medical Branch T,BU/BC,ALT,AST,ALK PHOS) BASIC METABOLIC PANEL 2023-02-22 08:11:00 Ludwig Parker [facility] (NA, K, CL, CO2, GLUCOSE, Medica l Branch BUN, CREATININE, CA) AC PANEL 20 + LACTIC ACID 2023-02-22 08:11:00 Jackie Zamudio [facility] PHOSPHORUS 2023-02-22 08:11:00 Alisa [facility] MAGNESIUM 2023-02-22 08:11:00 Alisa [facility] HEPATIC FUNCTION PANEL 2023-02-22 08:11:00 Jackie Zamudio [facility] ([id number]) (ALB,T.PRO,BILI Medical Branch T,BU/BC,ALT,AST,ALK PHOS) BASIC METABOLIC PANEL 2023-02-22 08:11:00 [facility] ([facility], K, CL, CO2, GLUCOSE, Medica l Branch BUN, CREATININE, CA) CBC WITHOUT DIFF 2023-02-22 08:11:00 [facility] AC PANEL 20 + LACTIC ACID 2023-02-22 08:11:00 [facility] PH[facility] 2023-02-22 08:11:00 Alisa [facility] MAGNESIUM 2023-02-22 08:11:00 Alisa [facility] HEPATIC FUNCTION PANEL 2023-02-22 08:11:00 Jackie Zamudio [facility] ([id number]) ([facility] T,BU/BC,ALT,AST,ALK PHOS) BASIC METABOLIC PANEL 2023-02-22 08:11:00 [facility] (NA, K, CL, CO2, GLUCOSE, Medica l Branch BUN, CREATININE, CA) CBC WITHOUT DIFF 2023-02-22 08:11:00 Sixto Oliveira [facility] AC PANEL 20 + LACTIC ACID 2023-02-22 08:11:00 Jackie [facility] XR KUB 2023-02-22 07:38:00 [facility] XR KUB 2023-02-22 07:38:00 Jackie [facility] XR KUB 2023-02-22 07:38:00 Jackie [facility] AC PANEL 20 + LACTIC ACID 2023-02-22 06:24:00 [facility] AC PANEL 20 + LACTIC ACID 2023-02-22 06:24:00 Jackie Zamudio [facility] AC PANEL 20 + LACTIC ACID 2023-02-22 06:24:00 Jackie Zamudio [facility] XR KUB 2023-02-22 05:16:52 [facility] XR CHEST 1 VW 2023-02-22 05:16:52 [facility]W 2023-02-22 05:16:52 [facility] KUB 2023-02-22 05:16:52 [facility] XR CHEST 1 VW 2023-02-22 05:16:52 Rob[facility] XR KUB 2023-02-22 05:16:52 Rob[facility] AC PANEL 20 + LACTIC ACID 2023-02-22 04:44:00 Shavon Cuellar [facility] AC PANEL 20 + LACTIC ACID 2023-02-22 04:44:00 Shavon Cuellar [facility] AC PANEL 20 + LACTIC ACID 2023-02-22 04:44:00 Shavon Cuellar [facility] BASIC METABOLIC PANEL 2023-02-22 04:41:00 Jackie Zamudio [facility] (NA, K, CL, CO2, GLUCOSE, Medica l Branch BUN, CREATININE, CA) BASIC METABOLIC PANEL 2023-02-22 04:41:00 Jackie Zamudio [facility] (NA, K, CL, CO2, GLUCOSE, Medica l Branch BUN, CREATININE, CA) BASIC METABOLIC PANEL 2023-02-22 04:41:00 Jackie Zamudio [facility] (NA, K, CL, CO2, GLUCOSE, Medica l Branch BUN, CREATININE, CA) POCT GLUCOSE (AUTOMATED) 2023-02-22 03:36:00 Luciano Long [facility] POCT GLUCOSE (AUTOMATED) 2023-02-22 03:36:00 Luciano Long [facility] POCT GLUCOSE (AUTOMATED) 2023-02-22 03:36:00 Luciano Long [facility] [place] [facility] [place] AC PANEL 20 + LACTIC ACID 2023-02-22 03:02:00 Shavon Cuellar [facility] [place] [facility] AC PANEL 20 + LACTIC ACID 2023-02-22 03:02:00 Shavon Cuellar [facility] [place] [facility] AC PANEL 20 + LACTIC ACID 2023-02-22 03:02:00 Shavon Cuellar [facility] POCT GLUCOSE (AUTOMATED) 2023-02-22 03:01:00 Luciano Long [facility] POCT GLUCOSE (AUTOMATED) 2023-02-22 03:01:00 Luciano Long [facility] POCT GLUCOSE (AUTOMATED) 2023-02-22 03:01:00 Luciano Long [facility] AC PANEL 20 + LACTIC ACID 2023-02-22 01:11:00 Jackie Zamudio [facility] [place] [facility] AC PANEL 20 + LACTIC ACID 2023-02-22 01:11:00 Jackie Zamudio [facility] [place] [facility] AC PANEL 20 + LACTIC ACID 2023-02-22 01:11:00 Jackie Zamudio [facility] [place] [facility] AC PANEL 20 + LACTIC ACID 2023-02-21 23:41:00 Jackie Zamudio [facility] [place] [facility] AC PANEL 20 + LACTIC ACID 2023-02-21 23:41:00 Jackie Zamudio [facility] [place] [facility] AC PANEL 20 + LACTIC ACID 2023-02-21 23:41:00 Jackie Zamudio [facility] XR CHEST 1 VW 2023-02-21 22:35:00 [facility] XR CHEST 1 VW 2023-02-21 22:35:00 [facility] XR CHEST 1 VW 2023-02-21 22:35:00 [facility] AC PANEL 20 + LACTIC ACID 2023-02-21 22:12:00 Ghazal Sims [facility] BODY FLUID 2023-02-21 22:12:00 [facility] CULTURE(AEROBIC/ANAEROBIC Medica l Branch ) BODY FLUID 2023-02-21 22:12:00 [facility] [place] CULTURE(AEROBIC/ANAEROBIC Medica l Branch ) AC PANEL 20 + LACTIC ACID 2023-02-21 22:12:00 [facility] BODY FLUID 2023-02-21 22:12:00 [facility] [place] CULTURE(AEROBIC/ANAEROBIC Medica l Branch ) AC PANEL 20 + LACTIC ACID 2023-02-21 22:12:00 Vu [facility] POCT GLUCOSE (AUTOMATED) 2023-02-21 20:33:00 Luciano [facility] [place] [facility] POCT GLUCOSE (AUTOMATED) 2023-02-21 20:33:00 Luciano [address] POCT GLUCOSE (AUTOMATED) 2023-02-21 20:33:00 Luciano [facility] [place] [facility] TRANSTHORACIC ECHO (TTE) 2023-02-21 19:26:11 ElenaLudwig cochran [facility] [place] LIMITED W/ DOPPLER, COLOR Medica l Branch AND CONTRAST TRANSTHORACIC ECHO (TTE) 2023-02-21 19:26:11 [place] [facility] [place] LIMITED W/ DOPPLER, COLOR Medica l Branch AND CONTRAST TRANSTHORACIC ECHO (TTE) 2023-02-21 19:26:11 [place] [facility] [place] LIMITED W/ DOPPLER, COLOR Medica l Branch AND CONTRAST POCT GLUCOSE (AUTOMATED) 2023-02-21 17:26:00 Luciano [facility] [place] [facility] POCT GLUCOSE (AUTOMATED) 2023-02-21 17:26:00 Luciano [facility] [place] [facility] POCT GLUCOSE (AUTOMATED) 2023-02-21 17:26:00 Luciano [facility] [place] [facility] POCT GLUCOSE (AUTOMATED) 2023-02-21 17:03:00 LicLuciano garcia [facility] [place] [facility] POCT GLUCOSE (AUTOMATED) 2023-02-21 17:03:[address] [facility] POCT GLUCOSE (AUTOMATED) 2023-02-21 17:03:00 Luciano Long [facility] CT ABDOMEN PELVIS WO 2023-02-21 15:56:12 Vu, [facility] [place] CONTR[facility] Branch CT THORAX WO CONTRAST 2023-02-21 15:56:12 Lashay Samayoa [facility] CT ABDOMEN PELVIS WO 2023-02-21 15:56:12 Vu, [facility] [place] CONTRAST Medical Branch CT THORAX WO CONTRAST 2023-02-21 15:56:12 Lashay Samayoa [facility] CT ABDOMEN PELVIS WO 2023-02-21 15:56:12 Vu, [facility] [place] CONTRAST [facility] CT THORAX WO CONTRAST 2023-02-21 15:56:12 Lashay Samayoa [facility] HB ECG ROUTINE & RHYTHM 2023-02-21 15:03:16 Vu, [facility]OUTINE & RHYTHM 2023-02-21 15:03:16 Vu, [facility] HB ECG ROUTINE & RHYTHM 2023-02-21 15:03:16 Vu, [place] [facility] SPUTUM CULTURE 2023-02-21 13:24:00 [facility] SPUTUM CULTURE 2023-02-21 13:24:00 [facility] SPUTUM CULTURE 2023-02-21 13:24:00 [facility] POCT GLUCOSE (AUTOMATED) 2023-02-21 12:49:00 LicLuciano garcia [facility] POCT GLUCOSE (AUTOMATED) 2023-02-21 12:49:00 LicLuciano garcia [facility] POCT GLUCOSE (AUTOMATED) 2023-02-21 12:49:00 Luciano [facility] POCT GLUCOSE (AUTOMATED) 2023-02-21 12:47:00 Luciano [facility] POCT GLUCOSE (AUTOMATED) 2023-02-21 12:47:00 Lick, Luciano [facility] POCT GLUCOSE (AUTOMATED) 2023-02-21 12:47:00 Luciano Logn [facility] URINALYSIS 2023-02-21 11:17:00 [facility] URINALYSIS 2023-02-21 11:17:00 Tee [facility] URINALYSIS 2023-02-21 11:17:00 Oliveira [facility] XR CHEST 1 VW 2023-02-21 11:00:00 Oliveira [facility] XR CHEST 1 VW 2023-02-21 11:00:00 Tee [facility] XR CHEST 1 VW 2023-02-21 11:00:00 [facility] MAGNESIUM 2023-02-21 08:43:00 Alisa [facility] PHOSPHORUS 2023-02-21 08:43:00 Alisa [facility] BASIC METABOLIC PANEL 2023-02-21 08:43:00 [facility] (NA, K, CL, CO2, GLUCOSE, Medica l Branch BUN, CREATININE, CA) CBC WITHOUT DIFF 2023-02-21 08:43:00 [facility] PROCALCITONIN 2023-02-21 08:43:00 [facility] AC PANEL 20 + LACTIC ACID 2023-02-21 08:43:00 [facility]US 2023-02-21 08:43:00 Alisa [facility] MAGNESIUM 2023-02-21 08:43:00 Alisa [facility] BASIC METABOLIC PANEL 2023-02-21 08:43:00 [facility] (NA, K, CL, CO2, GLUCOSE, Medica l Branch BUN, CREATININE, CA) CBC WITHOUT DIFF 2023-02-21 08:43:00 [facility] PROCALCITONIN 2023-02-21 08:43:00 [facility] AC PANEL 20 + LACTIC ACID 2023-02-21 08:43:00 Jackie Zamudio [facility] PHOSPHORUS 2023-02-21 08:43[facility]00 [facility]21 08:43[facility]00 [facility] BASIC METABOLIC PANEL 2023-02-21 08:43:00 Sixto Oliveira [facility] (NA, K, CL, CO2, GLUCOSE, Medica l Branch BUN, CREATININE, CA) CBC WITHOUT DIFF 2023-02-21 08:43:00 Sixto Oliveira [facility] PROCALCITONIN 2023-02-21 08:43:00 Tee [facility] AC PANEL 20 + LACTIC ACID 2023-02-21 08:43:00 Jackie Zamudio [facility] AC PANEL 20 + LACTIC ACID 2023-02-21 04:56:00 Jackie Zamudio [facility] AC PANEL 20 + LACTIC ACID 2023-02-21 04:56:00 Jackie Zamudio [facility] AC PANEL 20 + LACTIC ACID 2023-02-21 04:56:00 [facility] 2023-02-21 01:05:00 Sixto Oliveira [facility] BLOOD CULTURE SCREEN 2023-02-21 01:05:00 Sixto Oliveira [facility] BLOOD CULTURE SCREEN 2023-02-21 01:05:00 Sixto Oliveira [facility] POCT GLUCOSE (AUTOMATED) 2023-02-21 01:02:00 Luciano Long [facility] POCT GLUCOSE (AUTOMATED) 2023-02-21 01:02:00 Luciano Long [facility] POCT GLUCOSE (AUTOMATED) 2023-02-21 01:02:00 Luciano Long [facility] POCT GLUCOSE (AUTOMATED) 2023-02-20 21:29:00 Luciano Long [facility] POCT GLUCOSE (AUTOMATED) 2023-02-20 21:29:00 Luciano Long [facility] POCT GLUCOSE (AUTOMATED) 2023-02-20 21:29:00 Luciano Long [facility] POCT GLUCOSE (AUTOMATED) 2023-02-20 21:26:00 Luciano Long Bella [facility] POCT GLUCOSE (AUTOMATED) 2023-02-20 21:26:00 Luciano Long Bella [facility] POCT GLUCOSE (AUTOMATED) 2023-02-20 21:26:00 Luicano [facility] CLO[facility] DIFFICILE 2023-02-20 20:52:00 Methani [facility] CLOSTRIDIUM DIFFICILE 2023-02-20 20:52:00 Methani [facility] CLOSTRIDIUM DIFFICILE 2023-02-20 20:52:00 Methani [facility] POCT GLUCOSE (AUTOMATED) 2023-02-20 16:22:00 Luciano Long Bella [facility] POCT GLUCOSE (AUTOMATED) 2023-02-20 16:22:00 Luciano Long Bella versity [facility] POCT GLUCOSE (AUTOMATED) 2023-02-20 16:22:00 Luciano Long Bella [facility] POCT GLUCOSE (AUTOMATED) 2023-02-20 12:37:00 Luciano Long Bella versity [facility] POCT GLUCOSE (AUTOMATED) 2023-02-20 12:37:00 Luciano Long Bella [facility] POCT GLUCOSE (AUTOMATED) 2023-02-20 12:37:00 Luciano Long [facility] XR CHEST 1 VW 2023-02-20 09:30:00 True [facility] XR CHEST 1 VW 2023-02-20 09:30:00 True [facility] XR CHEST 1 VW 2023-02-20 09:30:00 True [facility] MAGNESIUM 2023-02-20 08:59:00 Alisa [facility] PHOSPHORUS 2023-02-20 08:59:00 Alisa [facility] BASIC METABOLIC PANEL 2023-02-20 08:59:00 Trung Sims [facility] (NA, K, CL, CO2, GLUCOSE, Medica l Branch BUN, CREATININE, CA) CBC WITHOUT DIFF 2023-02-20 08:59:00 Vu, [facility] PHOSPHORUS 2023-02-20 08:59:00 Alisa, [facility] MAGNESIUM 2023-02-20 08:59:00 Alisa, [facility] BASIC METABOLIC PANEL 2023-02-20 08:59:00 Vu, [facility] (NA, K, CL, CO2, GLUCOSE, Medica l Branch BUN, CREATININE, CA) CBC WITHOUT DIFF 2023-02-20 08:59:00 Vu, [facility] PHOSPHORUS 2023-02-20 08:59:00 Alisa, [facility] MAGNESIUM 2023-02-20 08:59:00 Alisa, [facility] BASIC METABOLIC PANEL 2023-02-20 08:59:00 Vu, [facility] (NA, K, CL, CO2, GLUCOSE, Medica l Branch BUN, CREATININE, CA) CBC WITHOUT DIFF 2023-02-20 08:59:00 Vu, [facility] POCT GLUCOSE (AUTOMATED) 2023-02-20 08:58:00 LickLuciano Uni [facility] POCT GLUCOSE (AUTOMATED) 2023-02-20 08:58:00 L[facility]Luciano [facility] PO[facility]UCOSE (AUTOMATED) 2023-02-20 08:58:00 [facility]Luciano [facility] PO[facility] GLUCOSE (AUTOMATED) 2023-02-20 06:02:00 [facility]Luciano [facility] PO[facility]UCOSE (AUTOMATED) 2023-02-20 06:02:00 LickLuciano [facility] PO[facility] GLUCOSE (AUTOMATED) 2023-02-20 06:02:00 LickLuciano [facility] BASIC METABOLIC PANEL 2023-02-20 01:23:00 Vu, [facility] (NA, K, CL, CO2, GLUCOSE, Medica l Branch BUN, CREATININE, CA) MAGNESIUM 2023-02-20 01:23:00 Vu, [facility] MAGNESIUM 2023-02-20 01:23:00 Vu, [facility] BASIC METABOLIC PANEL 2023-02-20 01:23:00 [facility] (NA, K, CL, CO2, GLUCOSE, Medica l Branch BUN, CREATININE, CA) MAGNESIUM 2023-02-20 01:23:00 Vu, [facility] BASIC METABOLIC PANEL 2023-02-20 01:23:00 Vu, [facility] (NA, K, CL, CO2, GLUCOSE, Medica l Branch BUN, CREATININE, CA) POCT GLUCOSE (AUTOMATED) 2023-02-20 01:22:00 Luciano Long [facility] POCT GLUCOSE (AUTOMATED) 2023-02-20 01:22:00 Luciano Long [facility] POCT GLUCOSE (AUTOMATED) 2023-02-20 01:22:00 LickLuciano [facility] POCT GLUCOSE (AUTOMATED) 2023-02-19 22:45:00 LickLuciano [facility] POCT GLUCOSE (AUTOMATED) 2023-02-19 22:45:00 LickLuciano Uni [facility] POCT GLUCOSE (AUTOMATED) 2023-02-19 22:45:00 LicLuciano garcia [facility] TRANSTHORACIC ECHO (TTE) 2023-02-19 20:24:50 ElenaLudwig cochran Uni [facility] W/ CONTRAST Medical [facility] TRANSTHORACIC ECHO (TTE) 2023-02-19 20:24:50 [place], Ludwig [facility] [place] COMPLETE W/ CONTRAST Medical [facility] TRANSTHORACIC ECHO (TTE) 2023-02-19 20:24:50 [place]Hannah cochranry Uni [facility] W/ CONTRAST Medical [facility] AC PANEL 21 + LACTIC ACID 2023-02-19 19:34:00 Jackie [facility] AC PANEL 21 + LACTIC ACID 2023-02-19 19:34:00 Jackie Zamudio Un [facility] AC PANEL 21 + LACTIC ACID 2023-02-19 19:34:00 Jackie Zamudio [facility] BASIC METABOLIC PANEL 2023-02-19 17:35:00 Jackie Zamudio [facility] (NA, K, CL, CO2, GLUCOSE, Medica l Branch BUN, CREATININE, CA) AC PANEL 21 + LACTIC ACID 2023-02-19 17:35:00 Jackie [facility]io [facility] MAGNESIUM 2023-02-19 17:35:[address] [facility] [place] [place] MAGNESIUM 2023-02-19 17:35[facility]00 [facility] 2023-02-19 17:35:00 Jackie Zamudio [facility] (NA, K, CL, CO2, GLUCOSE, Medica l Branch BUN, CREATININE, CA) AC PANEL 21 + LACTIC ACID 2023-02-19 17:35:00 Jackie Zamudio [facility] MAGNESIUM 2023-02-19 17:35:[address] [facility] [place] [place] BASIC METABOLIC PANEL 2023-02-19 17:35:00 Jackie Zamudio [facility] (NA, K, CL, CO2, GLUCOSE, Medica l Branch BUN, CREATININE, CA) AC PANEL 21 + LACTIC ACID 2023-02-19 17:35:00 Jackie Zamudio [facility] XR CHEST 1 2023-02-19 16:58:[address] [facility] [place] [place] XR CHEST 1 2023-02-19 16:58:00 [place], [facility] [place] [place] XR CHEST 1 2023-02-19 16:58:[address] [facility] [place] POCT GLUCOSE (AUTOMATED) 2023-02-19 16:32:00 Luciano Long [facility] POCT GLUCOSE (AUTOMATED) 2023-02-19 16:32:00 Luciano Long [facility] POCT GLUCOSE (AUTOMATED) 2023-02-19 16:32:00 Luciano Long [facility] POCT GLUCOSE (AUTOMATED) 2023-02-19 12:30:00 Luciano Long [facility] POCT GLUCOSE (AUTOMATED) 2023-02-19 12:30:00 Lick, [facility]iano [facility] POCT GLUCOSE (AUTOMATED) 2023-02-19 12:30:00 Lick, [facility]iano [facility] POCT GLUCOSE (AUTOMATED) 2023-02-19 11:07:00 Lick, [facility]iano [facility] POCT GLUCOSE (AUTOMATED) 2023-02-19 11:07:00 Lick, [facility]iano [facility] POCT GLUCOSE (AUTOMATED) 2023-02-19 11:07:00 Lick, [facility]iano [facility] PO[facility] GLUCOSE (AUTOMATED) 2023-02-19 10:47:00 Lick, Luciano Blanco [facility] POCT GLUCOSE (AUTOMATED) 2023-02-19 10:47:00 Lick, Luciano Blanco [facility] POCT GLUCOSE (AUTOMATED) 2023-02-19 10:47:00 LicLuciano garcia [facility] XR CHEST 1 VW 2023-02-19 09:49:00 True [facility] XR CHEST 1 VW 2023-02-19 09:49:00 True [facility] XR CHEST 1 VW 2023-02-19 09:49:00 True [facility] TROPONIN I 2023-02-19 08:15:00 Robb [facility] PHOSPHORUS 2023-02-19 08:15:00 [facility]b [facility] MAGNESIUM 2023-02-19 08:15:00 [facility] BASIC METABOLIC PANEL 2023-02-19 08:15:00 Jackie Zamudio [facility] (NA, K, CL, CO2, GLUCOSE, Medica l Branch BUN, CREATININE, CA) CBC WITH DIFF 2023-02-19 08:15:00 True [facility] PHOSPHORUS 2023-02-19 08:15:00 [facility] MAGNESIUM 2023-02-19 08:15:00 [facility] TROPONIN I 2023-02-19 08:15:00 [facility] BASIC METABOLIC PANEL 2023-02-19 08:15:00 Jackie Zamudio [facility] (NA, K, CL, CO2, GLUCOSE, Medica l Branch BUN, CREATININE, CA) CBC WITH DIFF 2023-02-19 08:15:00 [facility]-02-19 08:15:00 [facility] MAGNESIUM 2023-02-19 08:15:00 Robb [facility] TROPONIN I 2023-02-19 08:15:00 [facility] BASIC METABOLIC PANEL 2023-02-19 08:15:00 [facility], [facility], CL, CO2, GLUCOSE, Medica l Branch BUN, CREATININE, CA) CBC WITH DIFF 2023-02-19 08:15:00 True [facility] POCT GLUCOSE (AUTOMATED) 2023-02-19 05:57:00 LickLuciano [facility] POCT GLUCOSE (AUTOMATED) 2023-02-19 05:57:00 LickLuciano [facility] POCT GLUCOSE (AUTOMATED) 2023-02-19 05:57:00 LickLuciano [facility] POCT GLUCOSE (AUTOMATED) 2023-02-19 05:52:00 LickLuciano [facility] POCT GLUCOSE (AUTOMATED) 2023-02-19 05:52:00 LickLuciano [facility] POCT GLUCOSE (AUTOMATED) 2023-02-19 05:52:00 LickLuciano [facility] ACUTE CARE VENOUS BLOOD 2023-02-19 01:33:00 Jackie Zamudio [facility] TROPONIN I 2023-02-19 01:33:00 [facility]b [facility] BASIC METABOLIC PANEL 2023-02-19 01:33:00 Jackie Zamudio [facility] (NA, K, CL, CO2, GLUCOSE, Medica l Branch BUN, CREATININE, CA) POCT GLUCOSE (AUTOMATED) 2023-02-19 01:33:00 Luciano Long [facility] MAGNESIUM 2023-02-19 01:33:00 [facility] MAGNESIUM 2023-02-19 01:33:00 [facility] TROPONIN I 2023-02-19 01:33:[facility] 2023-02-19 01:33:00 Robb [facility] (NA, K, CL, CO2, GLUCOSE, Medica l Branch BUN, CREATININE, CA) ACUTE CARE VENOUS BLOOD 2023-02-19 01:33:00 Robb [facility] POCT GLUCOSE (AUTOMATED) 2023-02-19 01:33:00 Luciano Long [facility] MAGNESIUM 2023-02-19 01:33:00 Robb [facility] TROPONIN I 2023-02-19 01:33:00 [facility] BASIC METABOLIC PANEL 2023-02-19 01:33:00 Clarice Zamudioalisa [facility] (NA, K, CL, CO2, GLUCOSE, Medica l Branch BUN, CREATININE, CA) ACUTE CARE VENOUS BLOOD 2023-02-19 01:33:00 Clarice Zamudioalisa [facility] POCT GLUCOSE (AUTOMATED) 2023-02-19 01:33:00 LicLuciano garcia [facility] EKG-12 LEAD 2023-02-19 01:25:12 LicLuciano [facility] E[facility]-12 LEAD 2023-02-19 01:25:12 Lick[facility]iano [facility] E[facility]-12 LEAD 2023-02-19 01:25:12 Luciano Long [facility] POCT GLUCOSE (AUTOMATED) 2023-02-18 20:46:00 LicLuciano garcia [facility] POCT GLUCOSE (AUTOMATED) 2023-02-18 20:46:00 LicLuciano garcia [facility] POCT GLUCOSE (AUTOMATED) 2023-02-18 20:46:00 LicLuciano garcia [facility] BASIC METABOLIC PANEL 2023-02-18 18:32:00 Jackie Zamudio [facility] (NA, K, CL, CO2, GLUCOSE, Medica l Branch BUN, CREATININE, CA) BASIC METABOLIC PANEL 2023-02-18 18:32:00 Jackie Zamudio [facility] (NA, K, CL, CO2, GLUCOSE, Medica l Branch BUN, CREATININE, CA) BASIC METABOLIC PANEL 2023-02-18 18:32:00 Jackie Zamudio [facility] (NA, K, CL, CO2, GLUCOSE, Medica [facility] Branch BUN, CREATININE, CA) POCT GLUCOSE (AUTOMATED) 2023-02-18 18:31:00 Luciano Long [facility] POCT GLUCOSE (AUTOMATED) 2023-02-18 18:31:00 Luciano Long [facility] POCT GLUCOSE (AUTOMATED) 2023-02-18 18:31:00 Luciano Long [facility] POCT GLUCOSE (AUTOMATED) 2023-02-18 13:17:00 Luciano Long [facility] POCT GLUCOSE (AUTOMATED) 2023-02-18 13:17:00 Luciano Long [facility] POCT GLUCOSE (AUTOMATED) 2023-02-18 13:17:00 Luciano Long [facility] PHOSPHORUS 2023-02-18 09:10:00 Robb [facility] MAGNESIUM 2023-02-18 09:10:00 [facility] CBC WITH DIFF 2023-02-18 09:10:00 [facility] BASIC METABOLIC PANEL 2023-02-18 09:10:00 Jackie Zamudio [facility] (NA, K, CL, CO2, GLUCOSE, Medica l Branch BUN, CREATININE, CA) AC PANEL 21 + LACTIC ACID 2023-02-18 09:10:00 Jackie Zamudio [facility] PHOSPHORUS 2023-02-18 09:10:00 [facility] MAGNESIUM 2023-02-18 09:10:00 [facility] BASIC METABOLIC PANEL 2023-02-18 09:10:00 Robb [facility] (NA, K, CL, CO2, GLUCOSE, Medica l Branch BUN, CREATININE, CA) CBC WITH DIFF 2023-02-18 09:10:00 [facility] AC PANEL 21 + LACTIC ACID 2023-02-18 09:10:00 [facility] 2023-02-18 09:10:00 [facility] MAGNESIUM 2023-02-18 09:10:00 [facility] BASIC METABOLIC PANEL 2023-02-18 09:10:00 Jackie Zamudio [facility] (NA, K, CL, CO2, GLUCOSE, Medica [facility] Branch BUN, CREATININE, CA) CBC WITH DIFF 2023-02-18 09:10:00 [facility] AC PANEL 21 + LACTIC ACID 2023-02-18 09:10:00 Jackie Zamudio [facility] POCT GLUCOSE (AUTOMATED) 2023-02-18 09:08:00 LicLuciano garcia [facility] POCT GLUCOSE (AUTOMATED) 2023-02-18 09:08:00 Luciano Long [facility] POCT GLUCOSE (AUTOMATED) 2023-02-18 09:08:00 Luciano Long [facility] XR CHEST 1 2023-02-18 08:50:00 True [facility] XR CHEST 1 VW 2023-02-18 08:50:00 True [facility] XR CHEST 1 VW 2023-02-18 [facility] 2023-02-18 05:22:00 LicLuciano garcia [facility] POCT GLUCOSE (AUTOMATED) 2023-02-18 05:22:00 LicLuciano garcia [facility] POCT GLUCOSE (AUTOMATED) 2023-02-18 05:22:00 LicLuciano garcia [facility] POCT GLUCOSE (AUTOMATED) 2023-02-18 03:12:00 Lick, Luciano [facility] POCT GLUCOSE (AUTOMATED) 2023-02-18 03:12:00 Lick, Luciano [facility] POCT GLUCOSE (AUTOMATED) 2023-02-18 03:12:00 Lick, Luciano [facility] POCT GLUCOSE (AUTOMATED) 2023-02-18 01:53:00 Lick, Luciano [facility] POCT GLUCOSE (AUTOMATED) 2023-02-18 01:53:00 Lick, Luciano [facility] POCT GLUCOSE (AUTOMATED) 2023-02-18 01:53:00 Lick, Luciano [facility] POCT GLUCOSE (AUTOMATED) 2023-02-18 01:46:00 Lick, Luciano [facility] POCT GLUCOSE (AUTOMATED) 2023-02-18 01:46:00 Lick, Luciano [facility] POCT GLUCOSE (AUTOMATED) 2023-02-18 01:46:00 Lick, Luciano [facility] POCT GLUCOSE (AUTOMATED) 2023-02-18 01:23:00 Lick, Luciano [facility] POCT GLUCOSE (AUTOMATED) 2023-02-18 01:23:00 Lick, Luciano [facility] POCT GLUCOSE (AUTOMATED) 2023-02-18 01:23:00 Lick, Luciano [facility] POCT GLUCOSE (AUTOMATED) 2023-02-18 00:48:00 Lick, Luciano [facility] POCT GLUCOSE (AUTOMATED) 2023-02-18 00:48:00 Lick, Luciano [facility] POCT GLUCOSE (AUTOMATED) 2023-02-18 00:48:00 Lick, Luciano [facility] POCT GLUCOSE (AUTOMATED) 2023-02-17 22:16:00 Lick, Luciano [facility] POCT GLUCOSE (AUTOMATED) 2023-02-17 22:16:00 Lick, Luciano [facility] POCT GLUCOSE (AUTOMATED) 2023-02-17 22:16:00 Lick, Luciano [facility] AC PANEL 20 + LACTIC ACID 2023-02-17 17:49:00 [facility] PANEL 20 + LACTIC ACID 2023-02-17 17:49:00 [facility] AC PANEL 20 + LACTIC ACID 2023-02-17 17:49:00 Shavon Cuellar Un [facility] ABG+COOX+NA+K+GLU+CA2+ 2023-02-17 16:48:00 LicLuciano garcia [facility] ABG+COOX+NA+K+GLU+CA2+ 2023-02-17 16:48:00 LicLuciano garcia [facility] ABG+COOX+NA+K+GLU+CA2+ 2023-02-17 16:48:00 Luciano Long [facility] POCT GLUCOSE (AUTOMATED) 2023-02-17 12:49:00 Luciano Long [facility] POCT GLUCOSE (AUTOMATED) 2023-02-17 12:49:00 LicLuciano gracia [facility] POCT GLUCOSE (AUTOMATED) 2023-02-17 12:49:00 Luciano Long [facility] PHOSPHORUS 2023-02-17 09:15:00 [facility]b [facility] MAGNESIUM 2023-02-17 09:15:00 [facility] CBC WITH DIFF 2023-02-17 09:15:00 [facility] BASIC METABOLIC PANEL 2023-02-17 09:15:00 Jackie Zamudio [facility] (NA, K, CL, CO2, GLUCOSE, Medica l Branch BUN, CREATININE, CA) POCT GLUCOSE (AUTOMATED) 2023-02-17 09:15:00 Luciano Long Bella [facility] PHOSPHORUS 2023-02-17 09:15:00 [facility] MAGNESIUM 2023-02-17 09:15:00 [facility] BASIC METABOLIC PANEL 2023-02-17 [facility], [facility], CO2, GLUCOSE, Med[facility] Branch BUN, CREATININE, CA) CBC WITH DIFF 2023-02-17 09:15:00 [facility] POCT GLUCOSE (AUTOMATED) 2023-02-17 09:15:00 Luciano Longity [facility] PHOSPHORUS 2023-02-17 09:15:00 [facility] MAGNESIUM 2023-02-17 09:15:00 [facility] BASIC METABOLIC PANEL 2023-02-17 09:15:00 [facility] ([facility], K, CL, CO2, GLUCOSE, Med[facility] Branch BUN, CREATININE, CA) CBC WITH DIFF 2023-02-17 09:15:00 [facility] POCT GLUCOSE (AUTOMATED) 2023-02-17 09:15:00 Luciano Long [facility] XR CHEST 1 VW 2023-02-17 08:35:00 [facility] XR CHEST 1 VW 2023-02-17 08:35:00 [facility] XR CHEST 1 VW 2023-02-17 08:35:00 [facility] POCT GLUCOSE (AUTOMATED) 2023-02-17 04:50:00 LicLuciano garcia [facility] POCT GLUCOSE (AUTOMATED) 2023-02-17 04:50:00 [facility]SE (AUTOMATED) 2023-02-17 04:50:00 [facility]Luc[facility] PO[facility] GLUCOSE (AUTOMATED) 2023-02-17 00:48:00 [facility]Luc[facility] PO[facility] GLUCOSE (AUTOMATED) 2023-02-17 00:48:00 LicLuciano garcia versity [facility] POCT GLUCOSE (AUTOMATED) 2023-02-17 00:48:00 [facility]Luc[facility] PO[facility]UCOSE (AUTOMATED) 2023-02-16 23:43:00 [facility]Luc[facility] PO[facility] GLUCOSE (AUTOMATED) 2023-02-16 23:43:00 LicLuciano garcia [facility] POCT GLUCOSE (AUTOMATED) 2023-02-16 23:43:00 LicLuciano garcia [facility] POCT GLUCOSE (AUTOMATED) 2023-02-16 16:48:00 LicLuciano garcia [facility] POCT GLUCOSE (AUTOMATED) 2023-02-16 16:48:00 LickLuciano [facility] POCT GLUCOSE (AUTOMATED) 2023-02-16 16:48:00 [facility]Luc[facility] AC PANEL 20 + LACTIC ACID 2023-02-16 13:58:00 Jackie [facility] AC PANEL 20 + LACTIC ACID 2023-02-16 13:58:00 Jackie [facility] AC PANEL 20 + LACTIC ACID 2023-02-16 13:58:00 [facility] 2023-02-16 13:45:00 Levi [facility] TRANSFUSE PACKED RBC 2023-02-16 13:45:00 Levi, [facility] TRANSFUSE PACKED RBC 2023-02-16 13:45:00 Levi, [facility] PREPARE PACKED RBC 2023-02-16 13:29:02 Levi [facility] PREPARE PACKED RBC 2023-02-16 13:29:02 Vu, [facility] PREPARE PACKED RBC 2023-02-16 13:29:02 Vu, [facility] POCT GLUCOSE (AUTOMATED) 2023-02-16 12:32:00 [facility] POCT GLUCOSE (AUTOMATED) 2023-02-16 12:32:00 LicLuciano garcia [facility] POCT GLUCOSE (AUTOMATED) 2023-02-16 12:32:00 LicLuciano garcia [facility] POCT GLUCOSE (AUTOMATED) 2023-02-16 09:48:00 Lick, Luciano [facility] POCT GLUCOSE (AUTOMATED) 2023-02-16 09:48:00 Teresajose Luciano [facility] POCT GLUCOSE (AUTOMATED) 2023-02-16 09:48:00 Berhane Luciano [facility] AC PANEL 20 + LACTIC ACID 2023-02-16 09:44:00 [facility] PANEL 20 + LACTIC ACID 2023-02-16 09:44:00 [facility] PANEL 20 + LACTIC ACID 2023-02-16 09:44:00 Shavon Cuellar [facility] PHOSPHORUS 2023-02-16 09:40:00 [facility] MAGNESIUM 2023-02-16 09:40:00 [facility] CBC WITH DIFF 2023-02-16 09:40:00 [facility] BASIC METABOLIC PANEL 2023-02-16 09:40:00 Jackie Zamudio [facility] (NA, K, CL, CO2, GLUCOSE, Medica l Branch BUN, CREATININE, CA) PHOSPHORUS 2023-02-16 09:40:00 [facility] MAGNESIUM 2023-02-16 09:40:00 [facility] BASIC METABOLIC PANEL 2023-02-16 09:40:00 Jackie Zamudio [facility] (NA, K, CL, CO2, GLUCOSE, Medica [facility] Branch BUN, CREATININE, CA) CBC WITH DIFF 2023-02-16 09:40:00 [facility] PHOSPHORUS 2023-02-16 09:40:00 [facility] MAGNESIUM 2023-02-16 09:40:00 [facility] BASIC METABOLIC PANEL 2023-02-16 09:40:00 Jackie Zamudio [facility] (NA, K, CL, CO2, GLUCOSE, Medica [facility] Branch BUN, CREATININE, CA) CBC WITH DIFF 2023-02-16 09:40:00 [facility] XR CHEST 1 VW 2023-02-16 09:00:00 [facility] XR CHEST 1 VW 2023-02-16 09:00:00 [facility] XR CHEST 1 VW 2023-02-16 09:00:00 [facility] AC PANEL 20 + LACTIC ACID 2023-02-16 04:48:00 Shavon Cuellar Un [facility] POCT GLUCOSE (AUTOMATED) 2023-02-16 04:48:00 Luciano Long Uni [facility] POCT GLUCOSE (AUTOMATED) 2023-02-16 04:48:00 Luciano Long [facility] AC PANEL 20 + LACTIC ACID 2023-02-16 04:48:00 Shavon Cuellar Un [facility] POCT GLUCOSE (AUTOMATED) 2023-02-16 04:48:00 Luciano Long [facility] AC PANEL 20 + LACTIC ACID 2023-02-16 04:48:00 Shavon Cuellar [facility] POCT GLUCOSE (AUTOMATED) 2023-02-16 01:17:00 Luciano Long [facility] POCT GLUCOSE (AUTOMATED) 2023-02-16 01:17:00 Luciano Long [facility] POCT GLUCOSE (AUTOMATED) 2023-02-16 01:17:00 Luciano [facility] AC PANEL 20 + LACTIC ACID 2023-02-15 22:28:00 Jackie Zamudio [facility] AC PANEL 20 + LACTIC ACID 2023-02-15 22:28:00 Jackie Zamudio [facility] AC PANEL 20 + LACTIC ACID 2023-02-15 22:28:00 Jackie Zamudio [facility] POCT GLUCOSE (AUTOMATED) 2023-02-15 20:28:00 Luciano Long [facility] POCT GLUCOSE (AUTOMATED) 2023-02-15 20:28:00 Luciano Long [facility] POCT GLUCOSE (AUTOMATED) 2023-02-15 20:28:00 Luciano Long [facility] AC PANEL 20 + LACTIC ACID 2023-02-15 19:32:00 Shavon Cuellar [facility] AC PANEL 20 + LACTIC ACID 2023-02-15 19:32:00 Shavon Cuellar [facility] AC PANEL 20 + LACTIC ACID 2023-02-15 19:32:00 Shavon Cuellar [facility] HIT - AB 2023-02-15 17:35:00 [facility] EXTRA SST HOLD FOR ARUP 2023-02-15 17:35:00 [place] [facility] HIT - AB 2023-02-15 17:35:00 [facility] EXTRA SST HOLD FOR ARUP 2023-02-15 [facility]:35[facility] 2023-02-15 17:35[facility] FOR [facility] 2023-02-15 17:35[facility] PO[facility] GLUCOSE (AUTOMATED) 2023-02-15 17:29:00 Luciano Long [facility] POCT GLUCOSE (AUTOMATED) 2023-02-15 17:29:00 Luciano Long [facility] POCT GLUCOSE (AUTOMATED) 2023-02-15 17:29:00 Luciano Long [facility] AC PANEL 20 + LACTIC ACID 2023-02-15 17:28:00 Shaovn Cuellar [facility] AC PANEL 20 + LACTIC ACID 2023-02-15 17:28:00 Shavon Cuellar [facility] AC PANEL 20 + LACTIC ACID 2023-02-15 17:28:00 Shavon Cuellar [facility] AC PANEL 20 + LACTIC ACID 2023-02-15 15:46:00 Shavon Cuellar [facility] AC PANEL 20 + LACTIC ACID 2023-02-15 15:46:00 Shavon Cuellar [facility] AC PANEL 20 + LACTIC ACID 2023-02-15 15:46:00 Shavon Cuellar [facility] POCT GLUCOSE (AUTOMATED) 2023-02-15 15:45:00 Lick, Luciano [facility] POCT GLUCOSE (AUTOMATED) 2023-02-15 15:45:00 Lick, Luciano [facility] POCT GLUCOSE (AUTOMATED) 2023-02-15 15:45:00 Lick, Luciano [facility] POCT GLUCOSE (AUTOMATED) 2023-02-15 13:19:00 Lick, Luciano [facility] POCT GLUCOSE (AUTOMATED) 2023-02-15 13:19:00 Lick, Luciano [facility] POCT GLUCOSE (AUTOMATED) 2023-02-15 13:19:00 Lick, Luciano [facility] AC PANEL 20 + LACTIC ACID 2023-02-15 13:18:00 Jackie Zamudio [facility] AC PANEL 20 + LACTIC ACID 2023-02-15 13:18:00 Jackie Zamudio [facility] AC PANEL 20 + LACTIC ACID 2023-02-15 13:18:00 Jackie Zamudio [facility] POCT GLUCOSE (AUTOMATED) 2023-02-15 11:03:00 Lick, Luciano [facility] POCT GLUCOSE (AUTOMATED) 2023-02-15 11:03:00 Lick, Luciano [facility] POCT GLUCOSE (AUTOMATED) 2023-02-15 11:03:00 Lick, Luciano [facility] POCT GLUCOSE (AUTOMATED) 2023-02-15 09:58:00 Lick, Luciano [facility] POCT GLUCOSE (AUTOMATED) 2023-02-15 09:58:00 Lick, Luciano [facility] POCT GLUCOSE (AUTOMATED) 2023-02-15 09:58:00 Luciano Long [facility] AC PANEL 20 + LACTIC ACID 2023-02-15 09:05:00 Shavon Cuellar [facility] PROTHROMBIN TIME / INR 2023-02-15 09:05:00 [facility] BASIC METABOLIC PANEL 2023-02-15 09:05:00 [facility] ([facility], K, CL, CO2, GLUCOSE, Medica l Branch BUN, CREATININE, CA) CBC WITH DIFF 2023-02-15 09:05:[address] [facility] [place] [place] PHOSPHORUS 2023-02-15 09:05:00 Elena, [facility] [place] [place] MAGNESIUM 2023-02-15 09:05:[address] [facility] [place] [place] PHOSPHORUS 2023-02-15 09:05:[address] [facility] [place] [place] MAGNESIUM 2023-02-15 09:05:00 Elena, [facility] [place] [place] BASIC METABOLIC PANEL 2023-02-15 09:05:00 Elena [facility] (NA, K, CL, CO2, GLUCOSE, Medica l Branch BUN, CREATININE, CA) CBC WITH DIFF 2023-02-15 09:05:[address] [facility] [place] [place] PROTHROMBIN TIME / INR 2023-02-15 09:05:00 Jackie [facility] AC PANEL 20 + LACTIC ACID 2023-02-15 09:05:00 Shavon Cuellar [facility] PHOSPHORUS 2023-02-15 09:05:[address] [facility] [place] [place] MAGNESIUM 2023-02-15 09:05:00 Elena, [facility] [place] [place] BASIC METABOLIC PANEL 2023-02-15 09:05:00 Elena [facility] (NA, K, CL, CO2, GLUCOSE, Medica l Branch BUN, CREATININE, CA) CBC WITH DIFF 2023-02-15 09:05:[address] [facility] [place] [place] PROTHROMBIN TIME / INR 2023-02-15 09:05:00 Jackie Zamudio [facility] AC PANEL 20 + LACTIC ACID 2023-02-15 09:05:00 [facility]) 2023-02-15 09:02:00 LicLuciano garcia [facility] POCT GLUCOSE (AUTOMATED) 2023-02-15 09:02:00 LicLuciano garcia [facility] POCT GLUCOSE (AUTOMATED) 2023-02-15 09:02:00 Luciano Long [facility] XR CHEST 1 VW 2023-02-15 09:00:00 Robb [facility] XR CHEST 1 VW 2023-02-15 09:00:00 Robb [facility] XR CHEST 1 VW 2023-02-15 09:00:00 Robb [facility] POCT GLUCOSE (AUTOMATED) 2023-02-15 08:08:00 Luciano Long [facility] POCT GLUCOSE (AUTOMATED) 2023-02-15 08:08:00 Luciano Long [facility] POCT GLUCOSE (AUTOMATED) 2023-02-15 08:08:00 Luciano Long [facility] POCT GLUCOSE (AUTOMATED) 2023-02-15 07:00:00 Luciano Long [facility] POCT GLUCOSE (AUTOMATED) 2023-02-15 07:00:00 LickLuciano [facility] POCT GLUCOSE (AUTOMATED) 2023-02-15 07:00:00 LicLuciano garcia [facility] POCT GLUCOSE (AUTOMATED) 2023-02-15 06:09:00 LickLuciano [facility] POCT GLUCOSE (AUTOMATED) 2023-02-15 06:09:00 LickLuciano [facility] POCT GLUCOSE (AUTOMATED) 2023-02-15 06:09:00 Luciano Long [facility] AC PANEL 20 + LACTIC ACID 2023-02-15 05:06:00 Shavon Cuellar [facility] POCT GLUCOSE (AUTOMATED) 2023-02-15 05:06:00 LicLuciano garcia [facility] POCT GLUCOSE (AUTOMATED) 2023-02-15 05:06:00 Teresak, Luciano Uni [facility] AC PANEL 20 + LACTIC ACID 2023-02-15 05:06:00 Shavon Cuellar [facility] POCT GLUCOSE (AUTOMATED) 2023-02-15 05:06:00 Lick, Luciano [facility] AC PANEL 20 + LACTIC ACID 2023-02-15 05:06:00 Shavon Cuellar Un i[facility]ity of [facility] POCT GLUCOSE (AUTOMATED) 2023-02-15 04:00:00 Lick, Luciano [facility] POCT GLUCOSE (AUTOMATED) 2023-02-15 04:00:00 Lick, Luciano [facility] POCT GLUCOSE (AUTOMATED) 2023-02-15 04:00:00 Lick, Luciano [facility] POCT GLUCOSE (AUTOMATED) 2023-02-15 03:10:00 Lick, Luciano [facility] POCT GLUCOSE (AUTOMATED) 2023-02-15 03:10:00 Lick, Luciano [facility] POCT GLUCOSE (AUTOMATED) 2023-02-15 03:10:00 Lick, Luciano [facility] POCT GLUCOSE (AUTOMATED) 2023-02-15 02:10:00 Lick, Luciano [facility] POCT GLUCOSE (AUTOMATED) 2023-02-15 02:10:00 Lick, Luciano [facility] POCT GLUCOSE (AUTOMATED) 2023-02-15 02:10:[address]Luc[address] [facility] CBC WITHOUT DIFF 2023-02-15 01:17:00 Elena [facility] AC PANEL 20 + LACTIC ACID 2023-02-15 01:17:00 Jackie Zamudio [facility] CBC WITHOUT DIFF 2023-02-15 01:17:00 Elena [facility] AC PANEL 20 + LACTIC ACID 2023-02-15 01:17:00 Jackie Zamudio [facility] CBC WITHOUT DIFF 2023-02-15 01:17[facility]00 [facility]ACT[facility] ACID 2023-02-15 01:17:00 Jackie Zamudio Un [facility] POCT GLUCOSE (AUTOMATED) 2023-02-15 01:16:00 Lick, Luciano [facility] POCT GLUCOSE (AUTOMATED) 2023-02-15 01:16:00 Lick, Luciano [facility] POCT GLUCOSE (AUTOMATED) 2023-02-15 01:16:00 Lick, Luciano [facility] POCT GLUCOSE (AUTOMATED) 2023-02-14 23:46:00 Lick, Luciano [facility] POCT GLUCOSE (AUTOMATED) 2023-02-14 23:46:00 Lick, Luciano [facility] POCT GLUCOSE (AUTOMATED) 2023-02-14 23:46:00 Lick, Luciano [facility] POCT GLUCOSE (AUTOMATED) 2023-02-14 22:57:00 Lick, Luciano [facility] POCT GLUCOSE (AUTOMATED) 2023-02-14 22:57:00 Lick, Luciano [facility] POCT GLUCOSE (AUTOMATED) 2023-02-14 22:57:00 Lick, Luciano [facility] AC PANEL 20 + LACTIC ACID 2023-02-14 21:56:00 Shavon Cuellar [facility] AC PANEL 20 + LACTIC ACID 2023-02-14 21:56:00 Shavon Cuellar [facility] AC PANEL 20 + LACTIC ACID 2023-02-14 21:56:00 Shavon Cuellar [facility] ABG+COOX+NA+K+GLU+CA2+ 2023-02-14 20:15:00 Jennifer Bradford [facility] ABG+COOX+NA+K+GLU+CA2+ 2023-02-14 20:15:00 Jennifer [facility] ABG+COOX+NA+K+GLU+CA2+ 2023-02-14 20:15:00 Jennifer Bradford [facility] ABG+COOX+NA+K+GLU+CA2+ 2023-02-14 20:15:00 Jennifer Bradford [facility] CBC WITHOUT DIFF 2023-02-14 18:11:00 Smetana, [facility] CBC WITHOUT DIFF 2023-02-14 18:11:00 Smetana, [facility] CBC WITHOUT DIFF 2023-02-14 18:11:00 Smetana, [facility] CBC WITHOUT DIFF 2023-02-14 18:11:00 Smetana, [facility] POCT GLUCOSE (AUTOMATED) 2023-02-14 18:10:00 [facility]iano [facility]SE (AUTOMATED) 2023-02-14 18:10:00 LicLuciano garcia versity [facility] POCT GLUCOSE (AUTOMATED) 2023-02-14 18:10:00 Luciano Long [facility] POCT GLUCOSE (AUTOMATED) 2023-02-14 18:10:00 [facility] PANEL 20 + LACTIC ACID 2023-02-14 17:11:00 Shavon Cuellar [facility] AC PANEL 20 + LACTIC ACID 2023-02-14 17:11:00 Shavon Cuellar [facility] AC PANEL 20 + LACTIC ACID 2023-02-14 17:11:00 Shaovn Cuellar [facility] AC PANEL 20 + LACTIC ACID 2023-02-14 17:11:00 Shavon Cuellar [facility] POCT GLUCOSE (AUTOMATED) 2023-02-14 16:05:00 Luciano Long [facility] POCT GLUCOSE (AUTOMATED) 2023-02-14 16:05:00 Luciano Long [facility] POCT GLUCOSE (AUTOMATED) 2023-02-14 16:05:00 [facility] POCT GLUCOSE (AUTOMATED) 2023-02-14 16:05:00 [facility] TRANSFUSE PACKED RBC 2023-02-14 15:30:00 Trung Sims [facility] TRANSFUSE PACKED RBC 2023-02-14 15:30:00 SmetanaAle [facility] TRANSFUSE PACKED RBC 2023-02-14 15:30:00 SmetanaAle [facility] POCT GLUCOSE (AUTOMATED) 2023-02-14 15:13:00 LicLuciano garcia [facility] POCT GLUCOSE (AUTOMATED) 2023-02-14 15:13:00 LicLuciano garcia [facility] POCT GLUCOSE (AUTOMATED) 2023-02-14 15:13:00 LicLuciano [facility] PO[facility]UCOSE (AUTOMATED) 2023-02-14 15:13:00 Luciano Long [facility] PREPARE PACKED RBC 2023-02-14 15:11:20 Smetana [facility] PREPARE PACKED RBC 2023-02-14 15:11:20 Smetana [facility] PREPARE PACKED RBC 2023-02-14 15:11:20 Smetana [facility] PREPARE PACKED RBC 2023-02-14 15:11:20 Smetana [facility] POCT GLUCOSE (AUTOMATED) 2023-02-14 14:14:00 Luc[facility] POCT GLUCOSE (AUTOMATED) 2023-02-14 14:14:00 Luciano Long [facility] POCT GLUCOSE (AUTOMATED) 2023-02-14 14:14:00 LicLuciano garcia [facility] POCT GLUCOSE (AUTOMATED) 2023-02-14 14:14:00 Luciano Long [facility] AC PANEL 20 + LACTIC ACID 2023-02-14 14:11:00 Jackie Zamudio [facility] AC PANEL 20 + LACTIC ACID 2023-02-14 14:11:00 Jackie Zamudio [facility] AC PANEL 20 + LACTIC ACID 2023-02-14 14:11:00 Jackie Zamudio [facility] AC PANEL 20 + LACTIC ACID 2023-02-14 14:11:00 Jackie Zamudio [facility] HB ECG ROUTINE & RHYTHM 2023-02-14 13:00:26 Jennifer Bradford [facility] HB ECG ROUTINE & RHYTHM 2023-02-14 13:00:26 Jennifer Bradford [facility] HB ECG ROUTINE & RHYTHM 2023-02-14 13:00:26 Jennifer Bradford [facility] ABG+COOX+NA+K+GLU+CA2+ 2023-02-14 12:54:00 Jennifer Bradford [facility]ATED) 2023-02-14 12:54:00 Luciano Long [facility] ABG+COOX+NA+K+GLU+CA2+ 2023-02-14 12:54:00 Jennifer Bradford [facility] POCT GLUCOSE (AUTOMATED) 2023-02-14 12:54:00 Luciano Long [facility] ABG+COOX+NA+K+GLU+CA2+ 2023-02-14 12:54:00 Jennifer Bradford [facility] POCT GLUCOSE (AUTOMATED) 2023-02-14 12:54:00 Luciano Long [facility] ABG+COOX+NA+K+GLU+CA2+ 2023-02-14 12:54:00 Jennifer Bradford [facility] POCT GLUCOSE (AUTOMATED) 2023-02-14 12:54:00 Luciano Long [facility] POCT GLUCOSE (AUTOMATED) 2023-02-14 11:02:00 Luciano Long [facility] POCT GLUCOSE (AUTOMATED) 2023-02-14 11:02:00 TeresaLuciano garcia [facility] POCT GLUCOSE (AUTOMATED) 2023-02-14 11:02:00 LickLuciano [facility] POCT GLUCOSE (AUTOMATED) 2023-02-14 11:02:00 LickLuciano [facility] PHOSPHORUS 2023-02-14 10:10:00 Levi [facility] MAGNESIUM 2023-02-14 10:10:00 Vu, [facility] BASIC METABOLIC PANEL 2023-02-14 10:10:00 , [facility] (NA, K, CL, CO2, GLUCOSE, Medica [facility] Branch BUN, CREATININE, CA) CBC WITH DIFF 2023-02-14 10:10:00 Levi [facility] PROTHROMBIN TIME / INR 2023-02-14 10:10:00 Jackie Zamudio [facility] AC PANEL 20 + LACTIC ACID 2023-02-14 10:10:00 Jackie [facility] / INR 2023-02-14 10:10:00 Jackie Zamudio [facility] BASIC METABOLIC PANEL 2023-02-14 10:10:[address] , [facility] (NA, K, CL, CO2, GLUCOSE, Medica l Branch BUN, CREATININE, CA) CBC WITH DIFF 2023-02-14 10:10:00 Levi [facility] MAGNESIUM 2023-02-14 10:10:00 Levi [facility] PHOSPHORUS 2023-02-14 10:10:00 Levi [facility] AC PANEL 20 + LACTIC ACID 2023-02-14 10:10:00 Jackie [facility] 2023-02-14 10:10:00 Levi [facility] MAGNESIUM 2023-02-14 10:10:00 Vu, [facility] BASIC METABOLIC PANEL 2023-02-14 10:10:00 Vu, [facility] (NA, K, CL, CO2, GLUCOSE, Medica l Branch BUN, CREATININE, CA) CBC WITH DIFF 2023-02-14 10:10:00 , [facility] PROTHROMBIN TIME / INR 2023-02-14 10:10:00 Jackie Zamudio [facility] AC PANEL 20 + LACTIC ACID 2023-02-14 10:10:00 Jackie [facility]US 2023-02-14 10:10:00 Vu, [facility] MAGNESIUM 2023-02-14 10:10:00 Vu, [facility] BASIC METABOLIC PANEL 2023-02-14 10:10:[address] , [facility] (NA, K, CL, CO2, GLUCOSE, Medica [facility] Branch BUN, CREATININE, CA) CBC WITH DIFF 2023-02-14 10:10:00 Levi, [facility] PROTHROMBIN TIME / INR 2023-02-14 10:10:00 Jackie Zamudio [facility] AC PANEL 20 + LACTIC ACID 2023-02-14 10:10:00 [facility] PO[facility]UCOSE (AUTOMATED) 2023-02-14 10:09:00 LicLuciano garcia Uni [facility] POCT GLUCOSE (AUTOMATED) 2023-02-14 10:09:00 LickLuciano [facility] PO[facility] GLUCOSE (AUTOMATED) 2023-02-14 10:09:00 LickLuciano [facility] POCT GLUCOSE (AUTOMATED) 2023-02-14 10:09:00 LickLuciano [facility] POCT GLUCOSE (AUTOMATED) 2023-02-14 08:56:00 LickLuciano [facility] POCT GLUCOSE (AUTOMATED) 2023-02-14 08:56:00 LickLuciano Uni versity [facility] POCT GLUCOSE (AUTOMATED) 2023-02-14 08:56:00 LickLuciano [facility] POCT GLUCOSE (AUTOMATED) 2023-02-14 08:56:00 Lick, Luciano [facility] POCT GLUCOSE (AUTOMATED) 2023-02-14 08:45:00 Lick, Luciano [facility] POCT GLUCOSE (AUTOMATED) 2023-02-14 08:45:00 Lick, Luciano [facility] POCT GLUCOSE (AUTOMATED) 2023-02-14 08:45:00 Lick, Luciano [facility] POCT GLUCOSE (AUTOMATED) 2023-02-14 08:45:00 Lick, Luciano [facility] XR CHEST 1 VW 2023-02-14 08:25:00 Vu, [facility] XR CHEST 1 2023-02-14 08:25:00 Vu, [facility] XR CHEST 1 VW 2023-02-14 08:25:00 Vu, [facility] XR CHEST 1 2023-02-14 08:25:00 Vu, [facility] TRANSFUSE PLATELETS 2023-02-14 08:17:00 Vu, [facility] TRANSFUSE PLATELETS 2023-02-14 08:17:00 Vu, [facility] TRANSFUSE PLATELETS 2023-02-14 08:17:00 Vu, [facility] TRANSFUSE PLATELETS 2023-02-14 08:17:00 Vu, [facility] PREPARE PLATELETS 2023-02-14 08:12:26 Vu, [facility] PREPARE PLATELETS 2023-02-14 08:12:26 Vu, [facility] PREPARE PLATELETS 2023-02-14 08:12:26 Vu, [facility] PREPARE PLATELETS 2023-02-14 08:12:26 Vu, [facility] POCT GLUCOSE (AUTOMATED) 2023-02-14 07:38:00 Lick, Luciano [facility] AC PANEL 20 + LACTIC ACID 2023-02-14 07:38:00 Jackie [facility] PANEL 20 + LACTIC ACID 2023-02-14 07:38:00 Jackie [facility] POCT GLUCOSE (AUTOMATED) 2023-02-14 07:38:00 Lick, Luciano [facility] POCT GLUCOSE (AUTOMATED) 2023-02-14 07:38:00 Lick, Luciano [facility] AC PANEL 20 + LACTIC ACID 2023-02-14 07:38:00 Jackie [facility]io [facility] PO[facility] GLUCOSE (AUTOMATED) 2023-02-14 07:38:00 Lick, Luciano [facility] AC PANEL 20 + LACTIC ACID 2023-02-14 07:38:00 Jackie Zamudio Un [facility] HB ECG ROUTINE & RHYTHM 2023-02-14 07:06:40 Vu, [facility] HB ECG ROUTINE & RHYTHM 2023-02-14 07:06:40 Vu, [facility] HB ECG ROUTINE & RHYTHM 2023-02-14 07:06:40 Vu, [facility] TRANSFUSE PACKED RBC 2023-02-14 06:47:00 Levi [facility] TRANSFUSE PACKED RBC 2023-02-14 06:47:00 Levi [facility] TRANSFUSE PACKED RBC 2023-02-14 06:47:00 Vu [facility] TRANSFUSE PACKED RBC 2023-02-14 06:47:00 Levi [facility] PREPARE PACKED RBC 2023-02-14 06:41:07 Levi [facility] PREPARE PACKED RBC 2023-02-14 06:41:07 Levi [facility] PREPARE PACKED RBC 2023-02-14 06:41:07 Levi [facility] PREPARE PACKED RBC 2023-02-14 06:41:07 Vu, [facility] ([facility]OMATED) 2023-02-14 06:40:00 Lick, Luciano [facility] POCT GLUCOSE (AUTOMATED) 2023-02-14 06:40:00 Lick, Luciano [facility] POCT GLUCOSE (AUTOMATED) 2023-02-14 06:40:00 Lick, Luciano [facility] POCT GLUCOSE (AUTOMATED) 2023-02-14 06:40:00 Lick, Luciano [facility] AC PANEL 20 + LACTIC ACID 2023-02-14 06:23:00 Jackie Zamudio [facility] AC PANEL 20 + LACTIC ACID 2023-02-14 06:23:00 Jackie Zamudio Un iversity [facility] AC PANEL 20 + LACTIC ACID 2023-02-14 06:23:00 Jackie Zamudio [facility] AC PANEL 20 + LACTIC ACID 2023-02-14 06:23:00 Jackie [facility] POCT GLUCOSE (AUTOMATED) 2023-02-14 05:51:00 Lick, Luciano Uni versity [facility] POCT GLUCOSE (AUTOMATED) 2023-02-14 05:51:00 Lick, Luciano Uni versity [facility] POCT GLUCOSE (AUTOMATED) 2023-02-14 05:51:00 Lick, Luciano Uni versity [facility] POCT GLUCOSE (AUTOMATED) 2023-02-14 05:51:00 Lick, Luciano Uni versity [facility] PHOSPHORUS 2023-02-14 04:54:00 Robb [facility] MAGNESIUM 2023-02-14 04:54:00 Robb [facility] BASIC METABOLIC PANEL 2023-02-14 04:54:00 Jackie Zamudio [facility] (NA, K, CL, CO2, GLUCOSE, Medica l Branch BUN, CREATININE, CA) CBC WITH DIFF 2023-02-14 04:54:00 Sanchez Jennifer [facility] PROTHROMBIN TIME / INR 2023-02-14 04:54:00 Ghazal Sims [facility] PROTHROMBIN TIME / INR 2023-02-14 04:54:00 Ghazal Sims [facility] CBC WITH DIFF 2023-02-14 04:54:00 [facility] 2023-02-14 04:54[facility]-14 04:54[facility]00 [facility]OLIC PANEL 2023-02-14 04:54:00 Robb [facility] (NA, K, CL, CO2, GLUCOSE, Medica l Branch BUN, CREATININE, CA) PHOSPHORUS 2023-02-14 04:54:00 Robb [facility] MAGNESIUM 2023-02-14 04:54:00 Robb [facility] BASIC METABOLIC PANEL 2023-02-14 04:54:00 Robb [facility] (NA, K, CL, CO2, GLUCOSE, Medica [facility] Branch BUN, CREATININE, CA) CBC WITH DIFF 2023-02-14 04:54:00 aSnchez [facility] PROTHROMBIN TIME / INR 2023-02-14 04:54:00 Ghazal Sims [facility] PHOSPHORUS 2023-02-14 04:54:00 Robb [facility] MAGNESIUM 2023-02-14 04:54:00 Robb [facility] BASIC METABOLIC PANEL 2023-02-14 04:54:00 Robb [facility] (NA, K, CL, CO2, GLUCOSE, Medica l Branch BUN, CREATININE, CA) CBC WITH DIFF 2023-02-14 04:54:00 Sanchez [facility] PROTHROMBIN TIME / INR 2023-02-14 04:54:00 [facility] POCT GLUCOSE (AUTOMATED) 2023-02-14 04:53:00 Luciano Long [facility] AC PANEL 20 + LACTIC ACID 2023-02-14 04:53:00 Jackie Zamudio [facility] Branch AC PANEL 20 + LACTIC ACID 2023-02-14 04:53:00 Jackie Zamudio [facility] POCT GLUCOSE (AUTOMATED) 2023-02-14 04:53:00 Luciano Long [facility] POCT GLUCOSE (AUTOMATED) 2023-02-14 04:53:00 Berhane, Luciano [facility] AC PANEL 20 + LACTIC ACID 2023-02-14 04:53:00 Jackie Zamudio [facility] POCT GLUCOSE (AUTOMATED) 2023-02-14 04:53:00 Berhane, Luciano [facility] of [facility] AC PANEL 20 + LACTIC ACID 2023-02-14 04:53:00 Jackie Zamudio Un i[facility] of [facility] POCT GLUCOSE (AUTOMATED) 2023-02-14 04:04:00 Luciano Long Uni vers[facility] of [facility] AC PANEL 20 + LACTIC ACID 2023-02-14 04:04:00 Jackie Zamudio [facility] AC PANEL 20 + LACTIC ACID 2023-02-14 04:04:00 Jackie Zamudio [facility] POCT GLUCOSE (AUTOMATED) 2023-02-14 04:04:00 Luciano Long [facility] POCT GLUCOSE (AUTOMATED) 2023-02-14 04:04:00 Luciano Long [facility] AC PANEL 20 + LACTIC ACID 2023-02-14 04:04:00 Jackie Zamudio [facility] POCT GLUCOSE (AUTOMATED) 2023-02-14 04:04:00 LicLuciano garcia [facility] of [facility] AC PANEL 20 + LACTIC ACID 2023-02-14 04:04:00 Jackie Zamudio [facility] HB ECG ROUTINE & RHYTHM 2023-02-14 03:38:00 Jennifer Bradford [facility] HB ECG ROUTINE & RHYTHM 2023-02-14 03:38:00 Jennifer Bradford [facility] [place] [facility] HB ECG ROUTINE & RHYTHM 2023-02-14 03:38:00 Sanchez [facility] STRIP [facility] FIBRINOGEN 2023-02-14 03:30:00 Vu, [facility] FIBRINOGEN 2023-02-14 03:30:00 Vu, [facility] FIBRINOGEN 2023-02-14 03:30:00 Vu, [facility] FIBRINOGEN 2023-02-14 03:30:00 Vu, [facility] PHOSPHORUS 2023-02-14 03:25:00 Robb [facility] MAGNESIUM 2023-02-14 03:25:00 Robb [facility] BASIC METABOLIC PANEL 2023-02-14 03:25:00 Robb [facility] (NA, K, CL, CO2, GLUCOSE, Medica l Branch BUN, CREATININE, CA) CBC WITH DIFF 2023-02-14 03:25:00 Sanchez [facility] CBC WITH DIFF 2023-02-14 03:25:00 Sanchez [facility] BASIC METABOLIC PANEL 2023-02-14 03:25:00 Jackie Zamudio [facility] (NA, K, CL, CO2, GLUCOSE, Medica l Branch BUN, CREATININE, CA) MAGNESIUM 2023-02-14 03:25:00 Robb [facility] PHOSPHORUS 2023-02-14 03:25:00 Robb [facility] PHOSPHORUS 2023-02-14 03:25:00 Robb [facility] MAGNESIUM 2023-02-14 03:25:00 Robb [facility] BASIC METABOLIC PANEL 2023-02-14 03:25:00 [facility] (NA, K, CL, CO2, GLUCOSE, Medica l Branch BUN, CREATININE, CA) CBC WITH DIFF 2023-02-14 03:25:00 Sanchez [facility] PHOSPHORUS 2023-02-14 03:25:00 Robb [facility] MAGNESIUM 2023-02-14 03:25:[facility] MET[facility]OLIC PANEL 2023-02-14 03:25:00 Jackie Zamudio [facility] (NA, K, CL, CO2, GLUCOSE, Medica l Branch BUN, CREATININE, CA) CBC WITH DIFF 2023-02-14 03:25:00 Sanchez Jennifer [facility] TRANSFUSE PACKED RBC 2023-02-14 02:56:00 Vu, [facility] TRANSFUSE PACKED RBC 2023-02-14 02:56:00 Vu, [facility] TRANSFUSE PACKED RBC 2023-02-14 02:56:00 Vu, [facility] TRANSFUSE PACKED RBC 2023-02-14 02:56:00 Vu, [facility] PREPARE PACKED RBC 2023-02-14 02:51:27 Vu, [facility] PREPARE PACKED RBC 2023-02-14 02:51:27 Vu, [facility] PREPARE PACKED RBC 2023-02-14 02:51:27 Vu, [facility] PREPARE PACKED RBC 2023-02-14 02:51:27 Vu, [facility] XR ABDOMEN 1 2023-02-14 02:40:00 Sanchez [facility] XR ABDOMEN 1 2023-02-14 02:40:00 Sanchez [facility] XR ABDOMEN 1 2023-02-14 02:40:00 Sanchez [facility] XR ABDOMEN 1 2023-02-14 02:40:00 Sanchez [facility] ABG+COOX+NA+K+GLU+CA2+ 2023-02-14 02:39:00 Sanchez Jennifer [facility] ABG+COOX+NA+K+GLU+CA2+ 2023-02-14 02:39:00 Jennifer Bradford [facility] ABG+COOX+NA+K+GLU+CA2+ 2023-02-14 02:39:00 Jennifer Bradford [facility] ABG+COOX+NA+K+GLU+CA2+ 2023-02-14 02:39:00 Jennifer Bradford [facility] TRANSFUSE PACKED RBC 2023-02-14 02:13:00 Vu, [facility] TRANSFUSE PACKED RBC 2023-02-14 02:13:00 Vu, [facility] TRANSFUSE PACKED RBC 2023-02-14 02:13:00 Vu, [facility] TRANSFUSE PACKED RBC 2023-02-14 02:13:00 Levi, [facility] PREPARE PACKED RBC 2023-02-14 02:07:54 Vu, [facility] PREPARE PACKED RBC 2023-02-14 02:07:54 Vu, [facility] PREPARE PACKED RBC 2023-02-14 02:07:54 Vu, [facility] PREPARE PACKED RBC 2023-02-14 02:07:54 Levi [facility] XR CHEST 1 2023-02-14 01:59:00 Robb [facility] XR CHEST 1 2023-02-14 01:59:00 [facility]ST 1 2023-02-14 01:59:00 Robb [facility] XR CHEST 1 2023-02-14 01:59:00 Robb [facility] AC PANEL 20 + LACTIC ACID 2023-02-14 01:54:00 Jackie [facility] AC PANEL 20 + LACTIC ACID 2023-02-14 01:54:00 Jackie Zamudio [facility] AC PANEL 20 + LACTIC ACID 2023-02-14 01:54:00 Jackie Zamudio [facility] AC PANEL 20 + LACTIC ACID 2023-02-14 01:54:00 Jackie Zamudio [facility] CBC WITH DIFF 2023-02-14 01:48:00 Robb [facility] CBC WITH DIFF 2023-02-14 01:48:00 Robb [facility] CBC WITH DIFF 2023-02-14 01:48:00 Robb [facility] CBC WITH DIFF 2023-02-14 01:48:00 Robb [facility] AC PANEL 20 + LACTIC ACID 2023-02-14 01:32:00 Jackie Zamudio [facility] AC PANEL 20 + LACTIC ACID 2023-02-14 01:32:00 Jackie Zamudio [facility] AC PANEL 20 + LACTIC ACID 2023-02-14 01:32:00 Jackie Zamudio [facility] AC PANEL 20 + LACTIC ACID 2023-02-14 01:32:00 Jackie Zamudio [facility] MRSA / MSSA SCREEN BY 2023-02-14 01:21:00 Vu, [facility], [facility] MRSA / MSSA SCREEN BY 2023-02-14 01:21:00 Vu, [facility] sity [facility] PCR, [facility] MRSA / MSSA SCREEN BY 2023-02-14 01:21:00 Vu, [facility] sity [facility] PCR, [facility] MRSA / MSSA SCREEN BY 2023-02-14 01:21:00 Levi [facility] sity [facility] PCR, [facility] BASIC METABOLIC PANEL 2023-02-14 01:20:00 Jackie Zamudio [facility] (NA, K, CL, CO2, GLUCOSE, Medica l Branch BUN, CREATININE, CA) CBC WITH DIFF 2023-02-14 01:20:00 Jackie Zamudio [facility] PROTHROMBIN TIME / INR 2023-02-14 01:20:00 Jackie Zamudio [facility] AC PANEL 20 + LACTIC ACID 2023-02-14 01:20:00 [facility]FF 2023-02-14 01:20:00 [facility] BASIC METABOLIC PANEL 2023-02-14 01:20:00 Jackie Zamudio [facility] (NA, K, CL, CO2, GLUCOSE, Medica l Branch BUN, CREATININE, CA) AC PANEL 20 + LACTIC ACID 2023-02-14 01:20:00 [facility]OT[facility] / INR 2023-02-14 01:20:00 Jackie Zamudio [facility] BASIC METABOLIC PANEL 2023-02-14 01:20:00 Jackie Zamudio [facility] (NA, K, CL, CO2, GLUCOSE, Medica l Branch BUN, CREATININE, CA) CBC WITH DIFF 2023-02-14 01:20:00 Jackie Zamudio [facility] PROTHROMBIN TIME / INR 2023-02-14 01:20:00 Jackie Zamudio [facility] AC PANEL 20 + LACTIC ACID 2023-02-14 01:20:00 [facility] BASIC METABOLIC PANEL 2023-02-14 01:20:00 Jackie Zamudio [facility] (NA, K, CL, CO2, GLUCOSE, Medica l Branch BUN, CREATININE, CA) CBC WITH DIFF 2023-02-14 01:20:00 Jackie Zamudio [facility] PROTHROMBIN TIME / INR 2023-02-14 01:20:00 Jackie Zamudio [facility] AC PANEL 20 + LACTIC ACID 2023-02-14 01:20:00 [facility] PRE[facility]ACK[facility] RBC 2023-02-14 01:14:31 Kiersten Osorio [facility] PREPARE PACKED RBC 2023-02-14 01:14:31 Kiersten Osorio [facility] PREPARE PACKED RBC 2023-02-14 01:14:31 NorisKiersten [facility] PREPARE PACKED RBC 2023-02-14 01:14:31 Kiersten Osorio [facility] CBC WITHOUT DIFF 2023-02-14 01:06:00 Lick, [facility] PROTHROMBIN TIME / INR 2023-02-14 01:06:00 Lick, Luciano [facility] ACTIVATED PARTIAL 2023-02-14 01:06:00 Lick, [facility] FIBRINOGEN 2023-02-14 01:06:00 Lick, [facility] CBC WITHOUT DIFF 2023-02-14 01:06:00 Lick, [facility] PROTHROMBIN TIME / INR 2023-02-14 01:06:00 Lick, [facility] ACTIVATED PARTIAL 2023-02-14 01:06:00 Lick, [facility] FIBRINOGEN 2023-02-14 01:06:00 Lick, [facility] CBC WITHOUT DIFF 2023-02-14 01:06:00 Lick, [facility] PROTHROMBIN TIME / INR 2023-02-14 01:06:00 [facility]Luciano [facility] ACTIVATED PARTIAL 2023-02-14 01:06:00 Lick, [facility] FIBRINOGEN 2023-02-14 01:06:00 Lick, [facility] CBC WITHOUT DIFF 2023-02-14 01:06:00 Lick, [facility] PROTHROMBIN TIME / INR 2023-02-14 01:06:00 Lick, Luciano [facility] ACTIVATED PARTIAL 2023-02-14 01:06:00 Lick, [facility] FIBRINOGEN 2023-02-14 01:06:00 Lick, [facility] TRANSFUSE PACKED RBC 2023-02-14 00:47:00 Gissel Lamb [facility] TRANSFUSE PACKED RBC 2023-02-14 00:47:00 Gissel Lamb [facility] TRANSFUSE PACKED RBC 2023-02-14 00:47:00 Gissel Lamb [facility] TRANSFUSE PACKED RBC 2023-02-14 00:47:00 Gissel Lamb [facility] ARTERIAL 2023-02-14 00:43:00 Luciano Long [facility] ACUTE CARE ARTERIAL 2023-02-14 00:43:00 Luciano Long Un [facility] of [facility] ACUTE CARE ARTERIAL 2023-02-14 00:43:00 LicLuciano garcia [facility] ACUTE CARE ARTERIAL 2023-02-14 00:43:00 Luciano Long [facility] ACUTE CARE ARTERIAL 2023-02-13 23:50:00 Luciano Long [facility] ACUTE CARE ARTERIAL 2023-02-13 23:50:00 Luciano Long [facility] of [facility] ACUTE CARE ARTERIAL 2023-02-13 23:50:00 Luciano Long [facility] ACUTE CARE ARTERIAL 2023-02-13 23:50:00 Luciano Long [facility] TRANSFUSE PLATELETS 2023-02-13 23:49:00 Gissel Lamb [facility] TRANSFUSE PLATELETS 2023-02-13 23:49:00 Gissel Lamber [facility] TRANSFUSE PLATELETS 2023-02-13 23:49:00 [facility] TRANSFUSE PLATELETS 2023-02-13 23:49:00 [facility]el [facility] POCT ACT HIGH RANGE 2023-02-13 23:47:00 Luciano Long [facility] POCT ACT HIGH RANGE 2023-02-13 23:47:00 Luciano Long [facility] ty [facility] POCT ACT HIGH RANGE 2023-02-13 23:47:00 Luciano Long [facility] TRANSFUSE PLATELETS 2023-02-13 23:46:00 Zainab Gissel [facility] 2023-02-13 23:46[facility]00 [facility]23-02-13 23:46:00 [facility] 2023-02-13 23:46:00 Zainab Gissel [facility] POCT ACT HIGH RANGE 2023-02-13 23:06:00 Lick, Luciano [facility] ty [facility] POCT ACT HIGH RANGE 2023-02-13 23:06:00 Lick, Luciano [facility] ty [facility] POCT ACT HIGH RANGE 2023-02-13 23:06:00 LickLuciano [facility] ty [facility] POCT ACT HIGH RANGE 2023-02-13 22:59:00 LickLuciano [facility] ty [facility] POCT ACT HIGH RANGE 2023-02-13 22:59:00 Lick, [facility] POCT ACT HIGH RANGE 2023-02-13 22:59:00 LickLuciano [facility] ACUTE CARE ARTERIAL 2023-02-13 22:55:00 Luciano Long iversity [facility] ARTERIAL 2023-02-13 22:55:00 LicLuciano garcia iversity [facility] ACUTE CARE ARTERIAL 2023-02-13 22:55:00 LicLuciano garcia [facility] ISTAT ACUTE CARE ARTERIAL 2023-02-13 22:55:00 Luciano Long iversity [facility] PREPARE PLATELETS 2023-02-13 22:48:46 Gissel Lamb [facility] ty [facility] PREPARE PLATELETS 2023-02-13 22:48:46 Gissel Lamb [facility] PREPARE PLATELETS 2023-02-13 22:48:46 Yue Lambbeth [facility] PREPARE PLATELETS 2023-02-13 22:48:46 Gissel Lamb [facility] POCT ACT HIGH RANGE 2023-02-13 22:48:00 Lick, Luciano [facility] POCT ACT HIGH RANGE 2023-02-13 22:48:00 Lick, Luciano [facility] POCT ACT HIGH RANGE 2023-02-13 22:48:00 Lick, Luciano [facility] POCT ACT HIGH RANGE 2023-02-13 22:35:00 Lick, Luciano [facility] POCT ACT HIGH RANGE 2023-02-13 22:35:00 Lick, Luciano [facility] POCT ACT HIGH RANGE 2023-02-13 22:35:00 LickLuciano [facility] ISTAT ACUTE CARE ARTERIAL 2023-02-13 22:26:00 LicLuciano garcia [facility] ISTAT ACUTE CARE ARTERIAL 2023-02-13 22:26:[address] [facility] ISTAT ACUTE CARE ARTERIAL 2023-02-13 22:26:00 LickLuciano ivers[facility] of [facility] ISTAT ACUTE CARE ARTERIAL 2023-02-13 22:26:[address] LicLuc[address] iversity of [facility] POCT ACT HIGH RANGE 2023-02-13 22:19:[address] [facility] POCT ACT HIGH RANGE 2023-02-13 22:19:[address] [facility] POCT ACT HIGH RANGE 2023-02-13 22:19:[address] [facility] POCT ACT HIGH RANGE 2023-02-13 22:09:[address] [facility] POCT ACT HIGH RANGE 2023-02-13 22:09:[address] [facility] POCT ACT HIGH RANGE 2023-02-13 22:09:00 LickLuciano [facility] ISTAT ACUTE CARE ARTERIAL 2023-02-13 21:53:00 LickLuciano [facility] ISTAT ACUTE CARE ARTERIAL 2023-02-13 21:53:00 LicLuciano garcia [facility] ISTAT ACUTE CARE ARTERIAL 2023-02-13 21:53:00 LickLuciano [facility] ISTAT ACUTE CARE ARTERIAL 2023-02-13 21:53:00 Luciano Long [facility] POCT ACT HIGH RANGE 2023-02-13 21:50:00 Lick, Luciano [facility] POCT ACT HIGH RANGE 2023-02-13 21:50:00 Lick, Luciano [facility] POCT ACT HIGH RANGE 2023-02-13 21:50:00 Lick, Luciano [facility] POCT ACT HIGH RANGE 2023-02-13 21:36:[address] [facility] POCT ACT HIGH RANGE 2023-02-13 21:36:00 LickLuciano [facility] POCT ACT HIGH RANGE 2023-02-13 21:36:00 LicLuciano garcia [facility] ISTAT ACUTE CARE ARTERIAL 2023-02-13 21:26:00 Luciano Long [facility] ISTAT ACUTE CARE ARTERIAL 2023-02-13 21:26:00 Luciano Long [facility] ISTAT ACUTE CARE ARTERIAL 2023-02-13 21:26:00 Luciano Long [address] ISTAT ACUTE CARE ARTERIAL 2023-02-13 21:26:00 Luciano Long [facility] POCT ACT HIGH RANGE 2023-02-13 21:15:00 LicLuciano garcia [facility] POCT ACT HIGH RANGE 2023-02-13 21:15:00 LicLuciano garcia [facility] POCT ACT HIGH RANGE 2023-02-13 21:15:00 LicLuciano garcia [facility] ISTAT ACUTE CARE ARTERIAL 2023-02-13 21:02:00 Luciano Long [address] of [facility] ISTAT ACUTE CARE ARTERIAL 2023-02-13 21:02:00 Luciano Long [facility] ISTAT ACUTE CARE ARTERIAL 2023-02-13 21:02:00 LickLuciano [facility] ISTAT ACUTE CARE ARTERIAL 2023-02-13 21:02:00 LickLuciano [facility] POCT ACT HIGH RANGE 2023-02-13 20:58:00 Lick, Luciano [facility] POCT ACT HIGH RANGE 2023-02-13 20:58:00 Lick, Luciano [facility] POCT ACT HIGH RANGE 2023-02-13 20:58:00 Lick, Luciano [facility] POCT ACT HIGH RANGE 2023-02-13 20:34:00 Lick, Luciano [facility] POCT ACT HIGH RANGE 2023-02-13 20:34:00 Lick, Luciano [facility] POCT ACT HIGH RANGE 2023-02-13 20:34:00 Lick, Luciano [facility] ISTAT ACUTE CARE ARTERIAL 2023-02-13 20:32:00 LicLuciano garcia [facility] ISTAT ACUTE CARE ARTERIAL 2023-02-13 20:32:[address] [facility] ISTAT ACUTE CARE ARTERIAL 2023-02-13 20:32:[address] iversity of [facility] ISTAT ACUTE CARE ARTERIAL 2023-02-13 20:32:[address] Lic[address] iversity of [facility] POCT ACT HIGH RANGE 2023-02-13 20:12:[address] [facility] POCT ACT HIGH RANGE 2023-02-13 20:12:00 LickLuciano [facility] POCT ACT HIGH RANGE 2023-02-13 20:12:[address] [facility] ISTAT ACUTE CARE ARTERIAL 2023-02-13 19:56:00 LicLuciano garcia [facility] ISTAT ACUTE CARE ARTERIAL 2023-02-13 19:56:00 LickLuciano iversity of [facility] ISTAT ACUTE CARE ARTERIAL 2023-02-13 19:56:00 LickLuciano [facility] ISTAT ACUTE CARE ARTERIAL 2023-02-13 19:56:00 LickLuciano [facility] POCT ACT HIGH RANGE 2023-02-13 19:53:00 Lick, Luciano [facility] POCT ACT HIGH RANGE 2023-02-13 19:53:00 Lick, Luciano [facility] POCT ACT HIGH RANGE 2023-02-13 19:53:00 Lick, Luciano [facility] POCT ACT HIGH RANGE 2023-02-13 19:34:00 Lick, Luciano [facility] POCT ACT HIGH RANGE 2023-02-13 19:34:00 Lick, Luciano [facility] POCT ACT HIGH RANGE 2023-02-13 19:34:00 Lick, Luciano [facility] ISTAT ACUTE CARE ARTERIAL 2023-02-13 19:26:00 LicLuciano gacria [facility] ISTAT ACUTE CARE ARTERIAL 2023-02-13 19:26:00 LicLuciano garcia [facility] ISTAT ACUTE CARE ARTERIAL 2023-02-13 19:26:00 LicLuciano garcia [facility] ISTAT ACUTE CARE ARTERIAL 2023-02-13 19:26:00 LicLuciano garcia [facility] POCT ACT HIGH RANGE 2023-02-13 19:08:00 LicLuciano garcia [facility] POCT ACT HIGH RANGE 2023-02-13 19:08:00 LickLuciano [facility] POCT ACT HIGH RANGE 2023-02-13 19:08:00 LicLuciano garcia [facility] ISTAT ACUTE CARE ARTERIAL 2023-02-13 18:56:00 LicLuciano garcia [facility] ISTAT ACUTE CARE ARTERIAL 2023-02-13 18:56:00 LicLuciano garcia [facility] ISTAT ACUTE CARE ARTERIAL 2023-02-13 18:56:00 LicLuciano garcia [facility] ISTAT ACUTE CARE ARTERIAL 2023-02-13 18:56:00 LicLuciano garcia [facility] POCT ACT HIGH RANGE 2023-02-13 18:47:00 Lick, Luciano [facility] POCT ACT HIGH RANGE 2023-02-13 18:47:00 Lick, Luciano [facility] POCT ACT HIGH RANGE 2023-02-13 18:47:00 Lick, Luciano [facility] ISTAT ACUTE CARE ARTERIAL 2023-02-13 18:29:00 LickLuciano [facility] ISTAT ACUTE CARE ARTERIAL 2023-02-13 18:29:00 Lick, Luciano [facility] ISTAT ACUTE CARE ARTERIAL 2023-02-13 18:29:00 Lick, Luciano Cunningham [facility] ISTAT ACUTE CARE ARTERIAL 2023-02-13 18:29:00 LickLuciano [facility] POCT ACT HIGH RANGE 2023-02-13 18:15:00 LickLuciano [facility] POCT ACT HIGH RANGE 2023-02-13 18:15:00 Lick, Luciano [facility] POCT ACT HIGH RANGE 2023-02-13 18:15:00 LickLuciano [facility] ISTAT ACUTE CARE ARTERIAL 2023-02-13 17:54:00 LicLuciano garcia [facility] ISTAT ACUTE CARE ARTERIAL 2023-02-13 17:54:00 LicLuciano garcia [facility] ISTAT ACUTE CARE ARTERIAL 2023-02-13 17:54:00 LickLuciano [facility] ISTAT ACUTE CARE ARTERIAL 2023-02-13 17:54:00 LickLuciano [facility] POCT ACT HIGH RANGE 2023-02-13 17:51:00 LickLuciano [facility] POCT ACT HIGH RANGE 2023-02-13 17:51:00 LickLuciano [facility] POCT ACT HIGH RANGE 2023-02-13 17:51:00 LickLuciano [facility] ISTAT ACUTE CARE ARTERIAL 2023-02-13 17:27:00 Luciano Long [facility] ISTAT ACUTE CARE ARTERIAL 2023-02-13 17:27:00 LicLuciano garcia [facility] ISTAT ACUTE CARE ARTERIAL 2023-02-13 17:27:00 LicLuciano garcia [facility] ISTAT ACUTE CARE ARTERIAL 2023-02-13 17:27:[address] LicLuc[address] i[address]ity of [facility] POCT ACT HIGH RANGE 2023-02-13 17:24:00 LickLuciano [facility] POCT ACT HIGH RANGE 2023-02-13 17:24:00 [facility]Luciano [facility] POCT ACT HIGH RANGE 2023-02-13 17:24:00 LicLuciano garcia [facility] ty of [facility] SURGICAL PATHOLOGY EXAM 2023-02-13 17:18:00 Lick, Luciano [facility] ersity of [facility] SURGICAL PATHOLOGY EXAM 2023-02-13 17:18:00 Lick, Luciano [facility] ersity of [facility] SURGICAL PATHOLOGY EXAM 2023-02-13 17:18:00 LicLuciano garcia [facility] ersity of [facility] ISTAT ACUTE CARE ARTERIAL 2023-02-13 16:59:00 LicLuciano garcia [facility] ISTAT ACUTE CARE ARTERIAL 2023-02-13 16:59:00 Luciano Long iversity of [facility] ISTAT ACUTE CARE ARTERIAL 2023-02-13 16:59:00 Luciano Long iversity of [facility] ISTAT ACUTE CARE ARTERIAL 2023-02-13 16:59:00 Luciano Long iversity of [facility] POCT ACT HIGH RANGE 2023-02-13 16:56:00 LicLuciano garcia [facility] POCT ACT HIGH RANGE 2023-02-13 16:56:00 LicLuciano garcia [facility] POCT ACT HIGH RANGE 2023-02-13 16:56:00 LicLuciano garcia [facility] POCT ACT HIGH RANGE 2023-02-13 16:29:00 [facility]Luciano [facility] POCT ACT HIGH RANGE 2023-02-13 16:29:00 LicLuciano garcia [facility] POCT ACT HIGH RANGE 2023-02-13 16:29:00 LicLuciano garcia [facility] NERVE BLOCK 2023-02-13 15:05:[facility] CENTRAL LINE 2023-02-13 15:04:00 Teo [facility] Hospital ISTAT ACUTE CARE ARTERIAL 2023-02-13 14:30:00 LicLuciano garcia iversity of [facility] ISTAT ACUTE CARE ARTERIAL 2023-02-13 14:30:00 LickLuciano iversity of [facility] ISTAT ACUTE CARE ARTERIAL 2023-02-13 14:30:00 LickLuciano iversity of [facility] ISTAT ACUTE CARE ARTERIAL 2023-02-13 14:30:00 LicLuciano garcia iversity of [facility] INTUBATION 2023-02-13 14:28:00 [facility] POCT ACT HIGH RANGE 2023-02-13 14:26:00 LicLuciano garcia [facility] ty [facility] POCT ACT HIGH RANGE 2023-02-13 14:26:00 LickLuciano [facility] ty [facility] POCT ACT HIGH RANGE 2023-02-13 14:26:00 Luciano Long [facility] ARTERIAL LINE 2023-02-13 14:02:00 Gissel Lamb [facility] CORONARY ARTERY BYPASS 2023-02-13 13:34:00 Luciano Long [facility] [place] GRAFT [facility] MITRAL VALVE REPLACEMENT 2023-02-13 13:34:00 [facility] AORTIC VALVE REPLACEMENT 2023-02-13 13:34:00 Luciano Long Uni versity of [facility] CORONARY ARTERY BYPASS 2023-02-13 13:34:00 Luciano Long [facility] GRAFT [facility] MITRAL VALVE REPLACEMENT 2023-02-13 13:34:00 LicLuciano garcia Uni versity of [facility] AORTIC VALVE REPLACEMENT 2023-02-13 13:34:00 Luciano Long [facility] HB ECG ROUTINE & RHYTHM 2023-02-13 12:41:40 Kiersten Osorio Un iversity of [facility] HB ECG ROUTINE & RHYTHM 2023-02-13 12:41:40 Kiersten Osorio Un iversity of [facility] HB ECG ROUTINE & RHYTHM 2023-02-13 12:41:40 Kiersten Osorio Un iversity of [facility] HB ABO GROUPING 2023-02-13 12:22:00 Kiersten Osorio [facility] HB ABO GROUPING 2023-02-13 12:22:00 Kiersten Osorio [facility] HB ABO GROUPING 2023-02-13 12:22:00 Kiersten Osorio [facility] HB ABO GROUPING 2023-02-13 12:22:00 Kiersten Osorio [facility] CONSENT/REFUSAL FOR 2023-02-13 12:00:47 Doctor Unassigned, No Un [facility] DIAGNOSIS AND TREATMENT [facility] ASSIGNMENT OF BENEFITS 2023-02-13 11:57:23 Doctor Unassigned, [facility] HOSPITAL ADMISSION 2023-02-13 05:01:00 Doctor Unassigned, No Uni versity of [facility] HOSPITAL ADMISSION 2023-02-13 05:01:00 Doctor Unassigned, No Uni versity of [facility] XR CHEST 2 VW 2023-02-11 15:44:14 Kiersten Osorio [facility] XR CHEST 2 VW 2023-02-11 15:44:14 Kiersten Osorio [facility] FREE T4 2023-01-17 18:20:00 [facility] THYROID STIMULATING 2023-01-17 18:20:00 [place] [facility] HORMONE [facility] COMP. METABOLIC PANEL 2023-01-17 18:20:00 [place] [facility] ([id number]) [facility] LIPID PANEL ([id number])(TOTAL 2023-01-17 18:20:00 [place] [facility] CHOLESTEROL, [facility] TRIGLYCERIDES, HDL) CBC WITH DIFF 2023-01-17 18:20:00 [place] [facility] GLYCOSYLATED HEMOGLOBIN 2023-01-17 18:20:00 [place] [facility] (A1C) [facility] URINALYSIS 2023-01-17 18:20:00 Kiersten Osorio [facility] FREE T3 2023-01-17 18:20:00 [facility] [facility] CBC WITH DIFF 2023-01-17 18:20:00 Perry mohsen [facility] COMP. METABOLIC PANEL 2023-01-17 18:20:00 [place] [facility] ([id number]) [facility] LIPID PANEL ([id number])(TOTAL 2023-01-17 18:20:00 [facility] CHOLESTEROL, [facility] TRIGLYCERIDES, HDL) THYROID STIMULATING 2023-01-17 18:20:00 [place] [facility] HORMONE [facility] FREE T4 2023-01-17 18:20:00 Perry mohsen [facility] GLYCOSYLATED HEMOGLOBIN 2023-01-17 18:20:00 [place] [facility] (A1C) [facility] FREE T3 2023-01-17 18:20:00 Perry mohsen [facility] MICROALBUMIN URINE 2023-01-17 18:20:00 [place] Grande [facility] VITAMIN D, 25-OH 2023-01-17 18:20:00 [place] Grande [facility] HCV ANTIBODY 2023-01-17 18:20:00 Perry mohsen [facility] URINALYSIS 2023-01-17 18:20:00 Kiersten Osorio [facility] DISCLOSURE AND CONSENT, 2023-01-17 05:01:00 Doctor Unassigned, N o [facility] MEDICAL AND SURGICAL [facility] PROCEDURES DISCLOSURE AND CONSENT, 2023-01-17 05:01:00 Doctor Unassigned, N o [facility] AND SURGICAL [facility] PROCEDURES DISCLOSURE AND CONSENT, 2023-01-17 05:01:00 Doctor Unassigned, N o [facility] MEDICAL AND SURGICAL Name [facility] PROCEDURES DISCLOSURE AND CONSENT, 2023-01-17 05:01:00 Doctor Unassigned, N o [facility] MEDICAL AND SURGICAL Name [facility] PROCEDURES POCT HEMOGLOBIN A1C TEST 2023-01-16 16:29:00 [place] [facility] POCT HEMOGLOBIN A1C TEST 2023-01-16 16:29:00 [place] [facility] TRANSTHORACIC ECHO (TTE) 2023-01-15 18:59:00 Noel Moreland Uni [facility] COMPLETE W/ CONTRAST [facility] LOWER EXTREMITY ARTERIAL 2022-12-28 20:56:00 Noel Moreland [facility] DUPLEX BILATERAL - BY [facility] anch VASCULAR LAB JYOTI EXTREMITY STRESS - BY 2022-12-28 20:00:00 [facility] CAROTID DUPLEX BILATERAL 2022-12-28 19:00:00 Noel Moreland Uni [facility] - BY VASCULAR LAB Medical Branch CONSENT/REFUSAL FOR 2022-11-26 15:02:45 [facility], [facility] Name [facility] POCT GLUCOSE (AUTOMATED) 2022-10-05 23:18:00 Jeremías Castro [facility] POCT GLUCOSE (AUTOMATED) 2022-10-05 17:34:00 Jeremías Castro [facility] POCT GLUCOSE (AUTOMATED) 2022-10-05 14:32:00 Jeremías Castro [facility] POCT GLUCOSE (AUTOMATED) 2022-10-05 10:15:00 Jeremías Castro [facility] BASIC METABOLIC PANEL 2022-10-05 06:41:00 Vito Cosme [facility] (NA, K, CL, CO2, GLUCOSE, Medica l Branch BUN, CREATININE, CA) CBC WITH DIFF 2022-10-05 06:41:00 Vito Cosme [facility] POCT GLUCOSE (AUTOMATED) 2022-10-05 06:32:00 Jeremías Castro [facility] POCT GLUCOSE (AUTOMATED) 2022-10-05 06:08:00 Jeremías Castro [facility] POCT GLUCOSE (AUTOMATED) 2022-10-05 01:45:00 Jeremías Castro [facility] POCT GLUCOSE (AUTOMATED) 2022-10-04 22:52:00 Jeremías Castro [facility] POCT GLUCOSE (AUTOMATED) 2022-10-04 21:58:00 Jeremías Castro [facility] BASIC METABOLIC PANEL 2022-10-04 20:59:00 [facility] ([facility], K, CL, CO2, GLUCOSE, Medica l Branch BUN, CREATININE, CA) POCT GLUCOSE (AUTOMATED) 2022-10-04 17:45:00 Jeremías Castro [facility] POCT GLUCOSE (AUTOMATED) 2022-10-04 13:51:00 Jeremías Castro [facility] POCT GLUCOSE (AUTOMATED) 2022-10-04 10:02:00 Jeremías Castro [facility] POCT GLUCOSE (AUTOMATED) 2022-10-04 06:03:00 Jeremías Castro [facility] POCT GLUCOSE (AUTOMATED) 2022-10-04 03:33:00 Jeremías Castro [facility] POCT GLUCOSE (AUTOMATED) 2022-10-03 22:23:00 Xiomara To [facility] POCT GLUCOSE (AUTOMATED) 2022-10-03 17:49:00 Xiomara To [facility] POCT GLUCOSE (AUTOMATED) 2022-10-03 13:55:00 Xiomara To [facility] MAGNESIUM 2022-10-03 10:06:00 [facility] 2022-10-03 10:06:00 [facility]OL[facility] PAN[facility] 2022-10-03 10:06:00 [facility] ([facility], K, CL, CO2, GLUCOSE, Medica l Branch BUN, CREATININE, CA) CBC WITH DIFF 2022-10-03 10:06:00 Jeff, [facility] POCT GLUCOSE (AUTOMATED) 2022-10-03 10:06:00 Xiomara To [facility] LACTIC ACID WHOLE BLOOD 2022-10-03 06:25:[address] [facility] BASIC METABOLIC PANEL 2022-10-03 06:24:00 [facility] (NA, K, CL, CO2, GLUCOSE, Medica l Branch BUN, CREATININE, CA) POCT GLUCOSE (AUTOMATED) 2022-10-03 06:24:00 Xiomara To [facility] POCT GLUCOSE (AUTOMATED) 2022-10-03 03:28:00 Xiomara To [facility] BASIC METABOLIC PANEL 2022-10-03 02:05:00 Randee [facility] (NA, K, CL, CO2, GLUCOSE, Medica l Branch BUN, CREATININE, CA) POCT GLUCOSE (AUTOMATED) 2022-10-03 02:05:00 Xiomara To [facility] LACTIC ACID WHOLE BLOOD 2022-10-03 02:05:[address] [facility] POCT GLUCOSE (AUTOMATED) 2022-10-03 01:04:00 Xiomara To [facility] POCT GLUCOSE (AUTOMATED) 2022-10-03 00:10:00 Xiomara To [facility] XR CHEST 1 VW 2022-10-02 23:30:00 Randee [facility] POCT GLUCOSE (AUTOMATED) 2022-10-02 22:55:00 Xiomara To [facility] BASIC METABOLIC PANEL 2022-10-02 22:52:00 [facility] ([facility], K, CL, CO2, GLUCOSE, Medica l Branch BUN, CREATININE, CA) POCT GLUCOSE (AUTOMATED) 2022-10-02 21:58:00 Xiomaar To [facility] POCT GLUCOSE (AUTOMATED) 2022-10-02 21:10:00 Xiomara To [facility] POCT GLUCOSE (AUTOMATED) 2022-10-02 20:22:00 Xiomara To [facility] US GALL BLADDER 2022-10-02 19:42:51 Ankita [facility] BLOOD CULTURE SCREEN 2022-10-02 19:02:00 Ankita Jeff [facility] BASIC METABOLIC PANEL 2022-10-02 19:02:00 Ankita Jeff [facility] (NA, K, CL, CO2, GLUCOSE, Medica l Branch BUN, CREATININE, CA) POCT GLUCOSE (AUTOMATED) 2022-10-02 18:11:00 Xiomara To [facility] URINALYSIS 2022-10-02 17:46:00 Randee [facility] CREATININE, URINE RANDOM 2022-10-02 17:46:00 Ankita Jeff [facility] SODIUM, URINE RANDOM 2022-10-02 17:46:00 Ankita Jeff [facility] HB ECG ROUTINE & RHYTHM 2022-10-02 17:30:47 Ankita Jeff [facility] POCT GLUCOSE (AUTOMATED) 2022-10-02 16:43:00 Xiomara To [facility] AC PANEL 20 + LACTIC ACID 2022-10-02 16:43:00 [facility]OS[facility] 2022-10-02 16:37:00 Ankita [facility] OSMOLALITY, SERUM OR 2022-10-02 16:37:00 Ankita Jeff [facility] PLASMA [facility] BETA HYDROXY-BUTYRATE 2022-10-02 16:37:00 Randee [facility] TROPONIN I 2022-10-02 16:37:00 [facility]OLIC PANEL 2022-10-02 16:37:00 Ankita Jeff [facility] (NA, K, CL, CO2, GLUCOSE, Medica l Branch BUN, CREATININE, CA) PROTHROMBIN TIME / INR 2022-10-02 16:37:00 Ankita Jeff [facility] BLOOD CULTURE SCREEN 2022-10-02 16:35:00 Ankita Jeff [facility] POCT GLUCOSE (AUTOMATED) 2022-10-02 15:50:00 Xiomara To [facility] POCT GLUCOSE (AUTOMATED) 2022-10-02 14:06:00 Xiomara To [facility] CRITICAL CARE 2022-10-02 13:26:30 [facility] CREATINE KINASE 2022-10-02 12:25:00 Xiomara To [facility] MAGNESIUM 2022-10-02 12:25:00 Xiomara To [facility] COMP. METABOLIC PANEL 2022-10-02 12:25:00 Xiomara To [facility] ([id number]) [facility] CBC WITH DIFF 2022-10-02 12:25:00 Xiomara To [facility] PROTHROMBIN TIME / INR 2022-10-02 12:25:00 Xiomara To [facility] ACTIVATED PARTIAL 2022-10-02 12:25:00 Xiomara To [facility] WO CONTRAST 2022-10-02 11:47:10 Xiomara To [facility] TROPONIN I 2022-10-02 11:34:00 Xiomara To [facility] ETHANOL 2022-10-02 11:34:00 Xiomara To [facility] URINALYSIS 2022-10-02 11:34:00 Xiomara To [facility] N-TERMINAL PRO-BNP 2022-10-02 11:34:00 Xiomara To [facility] URINE DRUG (IMMUNOASSAY) 2022-10-02 11:34:00 Xiomara To [facility] SCREEN W/O REFLEX HB ECG ROUTINE & RHYTHM 2022-10-02 10:49:47 Xiomara To [facility] EKG (SCANNED DOCUMENTS) 2022-10-02 06:01:00 Doctor Unassigned, N o [facility] HOSPITAL ADMISSION 2022-10-02 06:01:00 Doctor Unassigned, No [facility] AUTHORIZATION TO RELEASE 2022-09-28 06:01:00 Doctor Unassigned, No [facility] PHI TO [facility] Name Medical Branch CONSENT/REFUSAL FOR 2022-09-26 23:23:55 Doctor Unassigned, No [facility] DIAGNOSIS AND TREATMENT Name [facility] POCT SARS-COV-2 ANTIGEN 2022-09-25 00:52:00 Millie Starr [facility] (BINAX NOW) [facility] POCT MOLECULAR STREP 2022-09-25 00:48:00 Unknown, Attending [facility] GLYCOSYLATED HEMOGLOBIN 2022-09-18 15:53:00 [place] [facility] (A1C) [facility] POCT GLUCOSE (AUTOMATED) 2022-09-08 17:53:00 Sigrid Zaidi F U [facility] POCT GLUCOSE (AUTOMATED) 2022-09-08 14:09:00 Sigrid Zaidi U [facility] MAGNESIUM 2022-09-08 11:03:00 Jose E Brito [facility] COMP. METABOLIC PANEL 2022-09-08 11:03:00 Jose E Brito [facility] ([id number]) [facility] POCT GLUCOSE (AUTOMATED) 2022-09-08 04:33:00 Sigrid Zaidi F U [facility] POCT GLUCOSE (AUTOMATED) 2022-09-07 22:22:00 Sigrid Zaidi U [facility] POCT GLUCOSE (AUTOMATED) 2022-09-07 18:00:00 Sigrid [facility]idi [facility] POCT GLUCOSE (AUTOMATED) 2022-09-07 14:09:00 Sigrid [facility]idi [facility] MAGNESIUM 2022-09-07 10:32:00 Suzi Rosas [facility] COMP. METABOLIC PANEL 2022-09-07 10:32:00 Suzi Rosas [facility] ([id number]) [facility] N-TERMINAL PRO-BNP 2022-09-07 10:32:00 Suzi Rosas [facility] POCT GLUCOSE (AUTOMATED) 2022-09-07 03:24:00 Dyan Khaled F U [facility] POCT GLUCOSE (AUTOMATED) 2022-09-06 22:03:00 Dyan [facility]aled [facility] POCT GLUCOSE (AUTOMATED) 2022-09-06 18:14:00 Dyan Khaled [facility] POCT GLUCOSE (AUTOMATED) 2022-09-06 14:22:00 Willam Zaidialed F U [facility] ABORH CONFIRMATION (LAB 2022-09-06 12:39:00 [facility] URINALYSIS 2022-09-06 10:57:00 [facility] URINE CULTURE 2022-09-06 10:57:00 [facility] MAGNESIUM 2022-09-06 10:54:00 [facility] COMP. METABOLIC PANEL 2022-09-06 10:54:[address] [facility] [address] ([id number]) [facility] HB ABO GROUPING 2022-09-06 10:54:00 [facility] XR CHEST 2 VW 2022-09-06 10:28:00 [facility] POCT GLUCOSE (AUTOMATED) 2022-09-06 03:36:00 Willam Zaidialed F U [facility] POCT GLUCOSE (AUTOMATED) 2022-09-05 23:39:00 Willam Zaidialed F U [facility] POCT GLUCOSE (AUTOMATED) 2022-09-05 17:58:00 Dyan, Khaled [facility] POCT GLUCOSE (AUTOMATED) 2022-09-05 17:58:00 Dyan, Khaled [facility] POCT GLUCOSE (AUTOMATED) 2022-09-05 15:38:00 Dyan, Khaled [facility] POCT GLUCOSE (AUTOMATED) 2022-09-05 15:38:00 Willam Zaidialed F U [facility] HB ECG ROUTINE & RHYTHM 2022-09-05 13:47:19 Ariel Bates [facility] STRIP [facility] Branch MAGNESIUM 2022-09-05 10:30:00 Ralph, [facility] COMP. METABOLIC PANEL 2022-09-05 10:30:00 [facility] ([id number]) Medical Branch MAGNESIUM 2022-09-05 10:30:00 [facility]. METABOLIC PANEL 2022-09-05 10:30[facility]00 [id number] POCT GLUCOSE (AUTOMATED) 2022-09-05 03:20:00 Sigrid Zaidi F U [facility] POCT GLUCOSE (AUTOMATED) 2022-09-05 03:20:00 Sigrid Zaidi F U [facility] ACTIVATED PARTIAL 2022-09-04 22[facility]55[facility]22-09-04 22:55:00 Ralph [facility] CARDIAC CATHETERIZATION 2022-09-04 20:07:04 Sigrid Zaidi F Un iversity of [facility] CARDIAC CATHETERIZATION 2022-09-04 20:07:04 Sigrid Zaidi F Un [facility] CARDIAC CATHETERIZATION 2022-09-04 20:07:04 Sigrid Zaidi F Un [facility] CARDIAC CATHETERIZATION 2022-09-04 20:07:04 Sigrid Zaidi F Un i[facility]ity [facility] CARDIAC CATHETERIZATION 2022-09-04 20:07:04 Sigrid Zaidi F Un i[facility]ity [facility] CARDIAC CATHETERIZATION 2022-09-04 20:07:04 Sigrid Zaidi F Un [facility]ity [facility] CARDIAC CATHETERIZATION 2022-09-04 20:07:04 Sigrid Zaidi F Un [facility] CARDIAC CATHETERIZATION 2022-09-04 20:07:04 Sigrid Zaidi F Un [facility] CATH PROCEDURE LOG 2022-09-04 18:18:35 Sigrid Zaidi Univers [facility] CATH PROCEDURE LOG 2022-09-04 18:18:35 Sigrid Zaidi [facility] HB ECG ROUTINE & RHYTHM 2022-09-04 14:07:54 Ariel Bates [facility] POCT GLUCOSE (AUTOMATED) 2022-09-04 14:04:00 Ariel Bates Uni [facility] POCT GLUCOSE (AUTOMATED) 2022-09-04 14:04:00 Ariel Bates Uni [facility] MAGNESIUM 2022-09-04 10:47:00 Alisha [facility] COMP. METABOLIC PANEL 2022-09-04 10:47:00 Jose E Brito [facility] ([id number]) [facility] MAGNESIUM 2022-09-04 10:47:00 Alisha [facility] COMP. METABOLIC PANEL 2022-09-04 10:47:00 Jose E Brito [facility] ([id number]) [facility] POCT GLUCOSE (AUTOMATED) 2022-09-04 02:34:00 OvAriel mullins Uni [facility] POCT GLUCOSE (AUTOMATED) 2022-09-04 02:34:00 OvAriel mullins Uni [facility] POCT GLUCOSE (AUTOMATED) 2022-09-03 22:50:00 OvAriel mullins Uni [facility] POCT GLUCOSE (AUTOMATED) 2022-09-03 22:50:00 OvAriel mullins Uni [facility] POCT GLUCOSE (AUTOMATED) 2022-09-03 17:37:00 OvAriel mullins Uni [facility] POCT GLUCOSE (AUTOMATED) 2022-09-03 17:37:00 OvAriel mullins Uni [facility] POCT GLUCOSE (AUTOMATED) 2022-09-03 13:53:00 OvAriel [facility]ullins [facility]SE (AUTOMATED) 2022-09-03 13:53:00 OvAriel mullins Uni [facility] MAGNESIUM 2022-09-03 09:50:00 Jancovich, [facility] BASIC METABOLIC PANEL 2022-09-03 09:50:00 Emeli [facility] (NA, K, CL, CO2, GLUCOSE, Medica l Branch BUN, CREATININE, CA) CBC WITH DIFF 2022-09-03 09:50:00 Emeli [facility] MAGNESIUM 2022-09-03 09:50:00 Emeli [facility] BASIC METABOLIC PANEL 2022-09-03 09:50:00 Emeli [facility] (NA, K, CL, CO2, GLUCOSE, Medica l Branch BUN, CREATININE, CA) CBC WITH DIFF 2022-09-03 09:50:00 Emeli [facility] POCT GLUCOSE (AUTOMATED) 2022-09-03 03:10:00 Ariel Bates [facility] POCT GLUCOSE (AUTOMATED) 2022-09-03 03:10:00 Ariel Bates [facility] POCT GLUCOSE (AUTOMATED) 2022-09-02 22:27:00 Ariel Bates [facility] POCT GLUCOSE (AUTOMATED) 2022-09-02 22:27:00 Ariel Bates [facility] POCT GLUCOSE (AUTOMATED) 2022-09-02 17:16:00 Ariel Bates [facility] POCT GLUCOSE (AUTOMATED) 2022-09-02 17:16:00 Ariel Bates [facility] POCT GLUCOSE (AUTOMATED) 2022-09-02 13:26:00 Ariel Bates [facility] POCT GLUCOSE (AUTOMATED) 2022-09-02 13:26:00 Ariel Bates [facility] MAGNESIUM 2022-09-02 10:01:00 Ariel Bates [facility] BASIC METABOLIC PANEL 2022-09-02 10:01:00 Ariel Bates [facility] (NA, K, CL, CO2, GLUCOSE, Medica l Branch BUN, CREATININE, CA) N-TERMINAL PRO-BNP 2022-09-02 10:01:00 Jana [facility] MAGNESIUM 2022-09-02 10:01:00 Jana [facility] BASIC METABOLIC PANEL 2022-09-02 10:01:00 Jana [facility] (NA, K, CL, CO2, GLUCOSE, Medica l Branch BUN, CREATININE, CA) N-TERMINAL PRO-BNP 2022-09-02 10:01:00 Jana [facility] POCT GLUCOSE (AUTOMATED) 2022-09-02 02:40:00 Jana [facility] POCT GLUCOSE (AUTOMATED) 2022-09-02 02:40:00 Jana [facility] POCT GLUCOSE (AUTOMATED) 2022-09-01 23:59:00 Jana [facility] POCT GLUCOSE (AUTOMATED) 2022-09-01 23:59:00 Jana [facility] POCT GLUCOSE (AUTOMATED) 2022-09-01 17:30:00 Ovharpreet [facility] POCT GLUCOSE (AUTOMATED) 2022-09-01 17:30:00 Jana [facility] POCT GLUCOSE (AUTOMATED) 2022-09-01 13:54:00 Jana [facility] POCT GLUCOSE (AUTOMATED) 2022-09-01 13:54:00 Jana [facility] MAGNESIUM 2022-09-01 10:56:00 Jana [facility] HEPATIC FUNCTION PANEL 2022-09-01 10:56:00 [facility] ([id number]) (ALB,T.PRO,[facility] Branch T,BU/BC,ALT,AST,ALK PHOS) BASIC METABOLIC PANEL 2022-09-01 10:56:00 Jana [facility] (NA, K, CL, CO2, GLUCOSE, Medica l Branch BUN, CREATININE, CA) LIPID PANEL (77356)(TOTAL 2022-09-01 10:56:00 Ariel Bates [facility] TRIGLYCERIDES, HDL) CBC WITHOUT DIFF 2022-09-01 10:56:00 [facility]MINAL [facility]-BNP 2022-09-01 10:56:00 [facility] MAGN[facility] 2022-09-01 10:56:00 Jana [facility] HEPATIC FUNCTION PANEL 2022-09-01 10:56:00 Jana [facility] ([id number]) (ALB,T.PRO,BILI [facility] T,BU/BC,ALT,AST,ALK PHOS) BASIC METABOLIC PANEL 2022-09-01 10:56:00 Jana [facility] (NA, K, CL, CO2, GLUCOSE, Medica l Branch BUN, CREATININE, CA) LIPID PANEL ([id number])(TOTAL 2022-09-01 10:56:00 Ariel Bates [facility] TRIGLYCERIDES, HDL) CBC WITHOUT DIFF 2022-09-01 10:56:00 Jana [facility] N-TERMINAL PRO-BNP 2022-09-01 10:56:00 Jana [facility] POCT GLUCOSE (AUTOMATED) 2022-09-01 02:23:00 Ariel Bates [facility] POCT GLUCOSE (AUTOMATED) 2022-09-01 02:23:00 Ariel Bates [facility] POCT GLUCOSE (AUTOMATED) 2022-08-31 22:47:00 Ariel Bates [facility] POCT GLUCOSE (AUTOMATED) 2022-08-31 22:47:00 Ariel Bates [facility] TRANSTHORACIC ECHO (TTE) 2022-08-31 21:04:00 Ariel Bates [facility] COMPLETE W/ CONTRAST Medical [facility] TRANSTHORACIC ECHO (TTE) 2022-08-31 21:04:00 Ariel Bates [facility] COMPLETE W/ CONTRAST [facility] CLOSTRIDIUM DIFFICILE 2022-08-31 20:48:00 Ariel Bates [facility] FECAL PATHOGENS BY PCR 2022-08-31 20:48:00 Ariel Bates [facility] CLOSTRIDIUM DIFFICILE 2022-08-31 20:48:00 Ariel Bates [facility] FECAL PATHOGENS BY PCR 2022-08-31 20:48:00 [facility] PO[facility] GLUCOSE (AUTOMATED) 2022-08-31 17:22:00 Ariel Bates [facility] POCT GLUCOSE (AUTOMATED) 2022-08-31 17:22:00 Jana, Ariel [facility] POCT GLUCOSE (AUTOMATED) 2022-08-31 16:45:00 Ariel Baets [facility] POCT GLUCOSE (AUTOMATED) 2022-08-31 16:45:00 Ariel Bates [facility] POCT GLUCOSE (AUTOMATED) 2022-08-31 16:23:00 Ariel Bates [facility] POCT GLUCOSE (AUTOMATED) 2022-08-31 16:23:00 Jana, Ariel [facility] POCT GLUCOSE (AUTOMATED) 2022-08-31 16:05:00 Bhupinder Bateslani [facility] POCT GLUCOSE (AUTOMATED) 2022-08-31 16:05:00 Ariel Bates [facility] POCT GLUCOSE (AUTOMATED) 2022-08-31 15:40:00 Ariel Bates [facility] POCT GLUCOSE (AUTOMATED) 2022-08-31 15:40:00 Ariel Bates [facility] US SCROTUM AND CONTENTS 2022-08-31 15:01:50 Brandy Perdomo [facility] US SCROTUM AND CONTENTS 2022-08-31 15:01:50 Brandy [facility]domo [facility] URINALYSIS 2022-08-31 13:30:00 Brandy Perdomo [facility] URINALYSIS 2022-08-31 13:30:00 Brandy Perdomo [facility] XR CHEST 1 VW 2022-08-31 12:47:00 Brandy Perdomo [facility] XR CHEST 1 VW 2022-08-31 12:47:00 Brandy Perdomo [facility] TROPONIN I 2022-08-31 12:45:00 Brandy Perdomo [facility] COMP. METABOLIC PANEL 2022-08-31 12:45:00 Brandy Perdomo [facility] ([id number]) [facility] CBC WITH DIFF 2022-08-31 12:45:00 Brandy Perdomo [facility] GLYCOSYLATED HEMOGLOBIN 2022-08-31 12:45:00 [facility] PROTHROMBIN TIME / INR 2022-08-31 12:45:00 Brandy Perdomo [facility] N-TERMINAL PRO-BNP 2022-08-31 12:45:00 Brandy Perdomo [facility] TROPONIN I 2022-08-31 12:45:00 Brandy Perdomo [facility] COMP. METABOLIC PANEL 2022-08-31 12:45:00 Brandy [facility] ([id number]) [facility] CBC WITH DIFF 2022-08-31 12:45:00 Brandy Perdomo [facility] GLYCOSYLATED HEMOGLOBIN 2022-08-31 12:45:00 [facility] PROTHROMBIN TIME / INR 2022-08-31 12:45:00 Brandy Perdomo [facility] N-TERMINAL PRO-BNP 2022-08-31 12:45:00 Brandy Perdomo [facility] HB ECG ROUTINE & RHYTHM 2022-08-31 12:44:04 Brandy Perdomo [facility] HB ECG ROUTINE & RHYTHM 2022-08-31 12:44:04 Brandy Perdomo [facility] CONSENT/REFUSAL FOR 2022-08-31 12:19:19 Doctor Unassigned, No Un iversity [facility] DIAGNOSIS AND TREATMENT Name [facility] CONSENT/REFUSAL FOR 2022-08-31 12:19:19 Doctor [facility]igned, [facility] HOSPITAL ADMISSION 2022-08-31 06:01:00 Doctor Unassigned, No Uni versity of [facility] HOSPITAL ADMISSION 2022-08-31 06:01:00 Doctor Unassigned, No Uni versity of [facility] Encounters Start End Encounter Admission Attending Care Care Encounter Source Date/Time Date/Time Type Type Clinicians Facility Department ID 2023-02-13 Hospital Luciano Long 1.2.840.0 [id number] Univers 06:56:00 Encounter 50623.1.1 ity of 3.104.2.7 [place] .3.199817 Medica l .8 Branch 2023-04-23 2023-04-23 Outpatient R SAVANNAH GRANDE [facility] [id number] Univers 13:30:00 13:30:00 SAVANNAH GRANDE ity of [facility] 2023-04-21 2023-04-[address] [facility] 1.2.840.11 [id number] Univers 00:00:00 00:00:00 , [facility] 350.1.13.10 i ty [place] [phone] [facility] 205 Branch 2023-04-19 2023-04-19 Transition EWELINA Diehl 1.2.840.114 [id number] Univers 00:00:00 00:00:00 of Care Karen SÁNCHEZ 350.1.13.10 i [place] [id number] [facility] 403 Branch 2023-02-13 2023-04-18 Inpatient R LUCIANO [facility] [id number] Univers 06:56:00 20:02:00 ity of [facility] 2023-04-05 2023-04-05 Patient MooTatiana EWELINA 1.2.840.114 [id number] Univers 00:00:00 00:00:00 Outreach E SÁNCHEZ 350.1.13.10 i [place] [id number] [facility] 403 Branch 2023-04-01 2023-04-01 Transition EWELINA Smith 1.2.840.114 [id number] Univers 00:00:00 00:00:00 of Care Allyn SÁNCHEZ 350.1.13.10 ity of [place] [phone] [facility] 403 Branch 2023-03-29 2023-03-29 Surgery BRYON Collado 1.2.840.114 [id number] Univers 07:00:00 12:11:00 Charles MEDRANOY 350.1.13.10 it y of [facility] 4.2.7.2.686 [place] [phone] [facility] 103 Branch 2023-03-28 2023-03-28 [facility] [id number] Univers 14:00:00 14:00:00 ELOISA ity of [facility] 2023-03-25 2023-03-25 Surgery BRYON Collado 1.2.840.114 [id number] Univers 11:28:00 13:34:00 Charles MEDRANOY 350.1.13.10 it y of [facility] 4.2.7.2.686 [place] [id number] [facility] 103 Branch 2023-03-06 2023-03-06 Anesthesia Aimee Dickson 1.2.840. 7 [id number] Univers 18:20:00 18:20:00 Event Isaac Vaughan 91145.1.1 ity of 3.104.2.7 [place] .3.171904 Medica l .8 Branch 2023-03-06 2023-03-06 [facility] [id number] Univers 14:20:00 14:20:00 NOEL ity o f [facility] 2023-02-13 2023-02-13 Anesthesia Rebekah Odom 1.2.840 .4 [id number] Univers 09:03:00 20:10:00 Event Elizabeth Galloway 11018.1.1 ity of 3.104.2.7 [place] .3.485589 Medica l .8 Branch 2023-02-13 2023-02-13 Surgery Luciano Long 1.2.840.7 [id number] Univers 08:30:00 16:44:00 85850.1.1 ity of 3.104.2.7 [place] .3.473837 Medica l .8 Branch 2023-02-13 2023-02-13 Orders Doctor 1.2.840.5 [id number] Univers 00:00:00 00:00:00 Only Unassigned, 47789.1.1 ity of [place] 3.104.2.7 [place] .3.051785 Medica l .8 Branch 2023-02-12 2023-02-12 Patient Doctor 1.2.840.7 [id number] Univers 00:00:00 00:00:00 Secure Msg Unassigned, 76868.1.1 ity of [place] 3.104.2.7 [place] .3.211687 Medica l .8 Branch 2023-02-12 2023-02-12 Travel 1.2.840.1 1.2.779.153 [id number] Univers 00:00:00 00:00:00 35696.1.1 350.1.13.10 ity of 3.104.2.7 4[place].3.698 [place] .3.358654 084.8 Medica l .8 Branch 2023-02-11 2023-02-11 Outpatient R [facility] [id number] Univers 10:24:48 23:59:00 KIERSTEN ity of [facility] 2023-02-11 2023-02-11 [facility], 1.2.840.0 [id number] Univers 10:24:48 23:59:00 Encounter Kiersten L 81134.1.1 ity of 3.104.2.7 [place] .3.350074 Medica l .8 Branch 2023-02-05 2023-02-05 Telephone Luciano Long 1.2.840.7 [id number] Univers 00:00:00 00:00:00 67191.1.1 ity of 3.104.2.7 [place] .3.932826 Medica l .8 Branch 2023-02-04 2023-02-04 [facility] [id number] Univers 15:00:00 15:55:24 AFAQ ity of [facility] 2023-02-04 2023-02-04 Office Salazar, 1.2.840.8 [id number] Univers 15:00:00 15:55:24 Visit Afaq 74840.1.1 ity of 3.104.2.7 [place] .3.560142 Medica l .8 [place] 2023-02-04 2023-02-04 Travel 1.2.840.1 1.2.760.293 [id number] [id number] Univers 00:00:00 00:00:00 35790.1.1 350.1.13.10 ity of 3.104.2.7 4.[place].7.3.698 [place] .3.226836 084.8 Medica l .8 [place] 2023-01-31 2023-01-31 [facility] [id number] Univers 16:30:00 16:30:00 ELOISA ity [facility] 2023-01-28 2023-01-28 [facility] [id number] Univers 14:00:00 14:00:00 NOEL chaudharyluisito o f [facility] 2023-01-24 2023-01-24 Telephone [place], 1.2.840.4 [id number] Univers 00:00:00 00:00:00 Ogechukwu 34165.1.1 it y of 3.104.2.7 [place] .3.446405 Medica l .8 [place] 2023-01-22 2023-01-22 Telephone [place], 1.2.840.1 [id number] Univers 00:00:00 00:00:00 Ogechukwu 78077.1.1 it y of 3.104.2.7 [place] .3.692396 Medica l .8 [place] 2023-01-17 2023-01-17 Outpatient R LUCIANO LONG [facility] [id number] Univers 13:00:00 14:19:06 ity of [facility] 2023-01-17 2023-01-17 Office Luciano Long 1.2.840.5 [id number] Univers 13:00:00 14:19:06 Visit 07007.1.1 ity of 3.104.2.7 [place] .3.159881 Medica l .8 [place] 2023-01-17 2023-01-17 Beamer Hand Edgar Michael 1.2.840.1 [id number] Univers 12:30:00 12:45:00 Visit [facility] 29788.1.1 ity of 3.104.2.7 [place] .3.163944 Medica l .8 [place] 2023-01-17 2023-01-17 Travel 1.2.840.1 1.2.112.875 [id number] Univers 00:00:00 00:00:00 10814.1.1 350.1.13.10 ity of 3.104.2.7 4.2.7.3.698 [place] .3.124551 084.8 Medica l .8 [place] 2023-01-16 2023-01-16 Outpatient R SAVANNAH GRANDE [facility] [id number] Univers 10:30:00 11:54:38 SAVANNAH GRANDE ity [facility] 2023-01-16 2023-01-16 Office [place], 1.2.840.4 [id number] Univers 10:30:00 11:54:38 Visit Savannah 34868.1.1 it y of 3.104.2.7 [place] .3.826430 Medica l .8 [place] 2023-01-16 2023-01-16 Telephone Aniceto, 1.2.840.5 [id number] Univers 00:00:00 00:00:00 Noel 06001.1.1 ity of 3.104.2.7 [place] .3.922581 Medica l .8 [place] 2023-01-15 2023-01-15 Outpatient R ANICETO [facility] [id number] Univers 12:43:46 23:59:00 NOEL ity o f [facility] 2023-01-15 2023-01-15 Hospital Aniceto, 1.2.840.2 [id number] Univers 12:43:46 23:59:00 Encounter Qiangjun 49304.1.1 i ty of 3.104.2.7 [place] .3.181164 Medica l .8 [place] 2023-01-15 2023-01-15 Travel 1.2.840.1 1.2.998.478 [id number] Univers 00:00:00 00:00:00 25205.1.1 350.1.13.10 ity of 3.104.2.7 4.2.7.3.698 [place] .3.154541 084.8 Medica l .8 [place] 2023-01-03 2023-01-03 [place] Aniceto, 1.2.840.9 [id number] Univers 00:00:00 00:00:00 Qiangjun 61497.1.1 ity of 3.104.2.7 [place] .3.218072 Medica l .8 [place] 2022-12-28 2022-12-28 [facility] Aniceto, 1.2.840.9 [id number] Univers 12:49:06 23:59:00 Encounter Qiangjun 14258.1.1 i ty of 3.104.2.7 [place] .3.409797 Medica l .8 [place] 2022-12-28 2022-12-28 [facility] Aniceto, 1.2.840.1 [id number] [id number] Univers 12:48:42 12:48:42 Encounter Qiangjun 16491.1.1 i ty of 3.104.2.7 [place] .3.884296 Medica l .8 [place] 2022-12-28 2022-12-28 Outpatient R ANICETO, [facility] [id number] Univers 12:48:18 12:48:18 TERRASAMPSON ity o f [facility] 2022-12-28 2022-12-28 [facility] Aniceto, 1.2.840.8 [id number] [id number] Univers 12:48:18 12:48:18 Encounter Qiarajanijun 00312.1.1 i ty of 3.104.2.7 [place] .3.411592 Medica l .8 [place] 2022-12-28 2022-12-28 Travel 1.2.840.1 1.2.648.275 [id number] Univers 00:00:00 00:00:00 50679.1.1 350.1.13.10 ity of 3.104.2.7 4.[place].7.3.698 [place] .3.009501 084.8 Medica l .8 [place] 2022-12-27 2022-12-27 Refill Aniceto, 1.2.840.2 [id number] Univers 00:00:00 00:00:00 Qiangjun 02600.1.1 ity of 3.104.2.7 [place] .3.633019 Medica l .8 [place] 2022-12-06 2022-12-06 [facility] [id number] Univers 15:00:00 15:00:00 ELOISA itluisito [facility] 2022-12-05 2022-12-05 Telephone [facility] 1.2.742.362 [id number] Univers 00:00:00 00:00:00 Noel LISA 350.1.13.10 it[place] of [place] [phone] Oh dical NAL [address] [place] [address] 2022-12-04 2022-12-04 Office [facility] 1.2.840.114 [id number] Univers 13:20:00 13:48:56 Visit Noel LISA 350.1.13.10 ity of [place] [id number] Oh dical NAL [address] [place] [address] 2022-12-04 2022-12-04 Outpatient R [facility] [id number] Univers 13:20:00 13:48:56 NOEL phillips o f [facility] 2022-11-26 2022-11-26 [facility] 1.2.840.114 [id number] Univers 10:30:00 11:00:00 Visit Saima [place] 350.1.13.10 i ty of [place].7.2.[place] 130.3270732 Oh dical NAL 085 [facility] 2022-11-26 2022-11-26 Outpatient R SAIMA QUINONES [facility] 10 [id number] Univers 10:30:00 10:30:00 SAIMA QUINONES i ty [facility] 2022-11-26 2022-11-26 Orders Doctor [place] 1.2.840.114 [id number] Univers 00:00:00 00:00:00 Only Unassigned, JOHANNY 350.1.13.10 ity of [facility] 4.2.7.2.686 [place] [id number] [address] 2022-11-08 2022-11-08 Outpatient R CHRIS QUINONESTNSuhas [facility] 10 [id number] Univers 09:00:00 09:00:00 SAIMA QUINONES i ty [facility] 2022-10-23 2022-10-23 Outpatient R TIM [facility] [id number] Univers 15:30:00 15:30:00 [facility] 2022-10-15 2022-10-15 Outpatient R SAVANNAH GRANDE [facility] [id number] Univers 13:30:00 14:00:06 [facility] 2022-10-15 2022-10-15 [facility] 1.2.840.114 [id number] Univers 13:30:00 14:00:06 Visit [facility] 350.1.13.10 ity of [facility] 4.2.[place].2.[place] 104.0436104 Oh dical NAL 044 [facility] 2022-10-12 2022-10-12 Outpatient R TIM [facility] [id number] Univers 00:00:00 00:00:00 ELOISA ity [facility] 2022-10-11 2022-10-11 Outpatient R LUCIANO LONG [facility] [id number] Univers 14:00:00 14:41:47 ity of [facility] 2022-10-11 2022-10-11 Office Luciano Long [facility] 1.2.840.114 [id number] Univers 14:00:00 14:41:47 Visit Y HEALTH 350.1.13.10 i ty of [place] [id number] [facility] 185 Branch 2022-10-10 2022-10-10 Telephone Keagan FELIX 1.2.840.114 10 [id number] Univers 00:00:00 00:00:00 Bety [place] 350.1.13.10 i ty of HOSPITAL 4.2.7.2.686 [place] [id number] [facility] 025 Branch 2022-10-09 2022-10-09 Transition EWELINA Diehl 1.2.840.114 [id number] Univers 00:00:00 00:00:00 of Care Karen Juares PRINCESS 350.1.13.10 i ty of [place] [id number] [facility] 403 Branch 2022-10-02 2022-10-05 Inpatient X [facility] [id number] Univers 04:41:00 18:20:00 BRIAN [facility] 2022-10-02 2022-10-05 [facility] Xiomara To 1.2.840.1 14 [id number] Univers 04:41:00 18:20:00 Encounter Jeremías Castro 350.1.13. 10 [facility] 4.2.7.2.686 [place] [id number] [facility] 094 Branch 2022-10-04 2022-10-04 Outpatient R LUCIANO OLNG [facility] [id number] Univers 14:15:00 14:15:00 ity [facility] 2022-09-28 2022-09-28 Outpatient R KATHARINE [facility] [id number] Univers 10:15:00 10:51:38 ALICE phillips o f [facility] 2022-09-28 2022-09-28 Office [facility] 1.2.840.114 [id number] Univers 10:15:00 10:51:38 Visit Alice LISA 350.1.13.10 ity of [facility] 4.2.7.2.[place] [phone] Oh dical NAL [address] BUILDING 2022-09-28 2022-09-28 Orders Doctor FELIX 1.2.840.114 [id number] Univers 00:00:00 00:00:00 Only Unassigned, JOHANNY 350.1.13.10 ity of [place] [facility] 4.2.7.2.686 Brandt [place] [id number] [facility] 009 Branch 2022-09-26 2022-09-26 Emergency X [facility] ERT [id number] Univers 17:36:00 18:39:00 [facility] 2022-09-26 2022-09-26 Emergency [facility] 1.2.971.503 [id number] Univers 17:36:00 18:39:00 Xiomara [place] 350.1.13.10 i ty of [place].2.[place] [id number] [facility] 084 [place] 2022-09-24 2022-09-24 Urgent Millie Starr [facility] 1.2.840.114 1 [id number] Univers 18:40:00 19:00:00 Care Unknown, Attending HEALTH 350.1.13.10 ity of [facility] 4.2.7.2.686 [place] VIANCA?BLEA [phone] Oh vinny KNEY [address] [place] MEDICAL OFFICE BUILDING 2022-09-24 2022-09-24 Outpatient R ANJANA [facility] [id number] Univers 18:40:00 18:40:00 MILLIECHARLOTTE phillips [facility] 2022-09-24 2022-09-24 Telephone ALEX Dumont 1.2.840.114 10 [id number] Univers 00:00:00 00:00:00 Eloisa Y HEALTH 350.1.13.10 i ty of [place] [id number] [facility] 414 [place] 2022-09-21 2022-09-21 Office ALEX Dumont 1.2.153.252 [id number] [id number] Univers 15:30:00 16:00:00 [facility] 350.1.13.10 i ty [place] [id number] [facility] 414 [place] 2022-09-21 2022-09-21 Outpatient R TIM [facility] [id number] Univers 15:30:00 15:30:00 ELOISA ity [facility] 2022-09-18 2022-09-18 Beamer Hand 2, Adc Lab [facility] 1.2.840.114 [id number] Univers 10:00:00 10:15:00 Visit [place] 350.1.13.1 0 ity of [place] [id number] [facility] 353 [facility] 2022-09-18 2022-09-18 Outpatient R RICHIE GRANDEKHRISRaza [facility] [id number] Univers 09:00:00 09:44:55 [facility]H [facility]DE [facility] 2022-09-18 2022-09-18 Office [place], [facility] 1.2.840.114 [id number] Univers 09:00:00 09:44:55 Visit Gabrieleugeniaraza LISA 350.1.13.10 ity of [place] 4[place] [phone] Oh dicsd NAL 044 [facility] 2022-09-10 2022-09-10 Transition EWELINA Clifford 1.2.840.114 [id number] Univers 00:00:00 00:00:00 of Care Nicole SÁNCHEZ 350.1.13.10 it y [place] [id number] [facility] 403 [address] 2022-08-31 2022-09-08 Inpatient X [facility] [id number] Univers 06:32:00 15:03:00 SIGRID ity [facility] 2022-08-31 2022-09-08 Hospital Brandy Perdomo 1.2.840. 114 [id number] Univers 06:32:00 15:03:00 Encounter Milton Andrade JOHANNY 350.1.13.10 ity of [facility] 4.2.7.2.686 [place] Sigrid Zaidi [phone] [facility] [address] [place] 2022-09-04 2022-09-04 Surgery BRYON [place] 1.2.706.048 [id number] Univers 10:23:00 13:23:00 Afaq JOHANNY 350.1.13.10 it y of [facility] 4.2.7.2.686 [place] [id number] [facility] [address] 2022-08-28 2022-08-28 Telephone [facility] [id number] [id number] Univers 00:00:00 00:00:00 Noel LISA 350.1.13.10 [place] [id number] Oh dical NAL 059 [facility] 2022-07-06 2022-07-06 [facility]phone [facility] 1.2.826.519 [id number] Univers 00:00:00 00:00:00 Saima LISA 350.1.13.10 i ty [place] [id number] Oh dical NAL 085 [facility] 2022-06-05 2022-06-05 [facility] [id number] Univers 11:00:00 11:24:27 NOEL phillips o f [facility] 2022-06-05 2022-06-05 Office [facility] 1.2.840.114 [id number] Univers 11:00:00 11:24:27 Visit Noel LISA 350.1.13.10 ity [place] [id number] Oh dical NAL 059 [facility] 2022-05-10 2022-05-10 Outpatient R SAIMA QUINONES [facility] 10 [id number] Univers 10:30:00 11:16:27 SAIMA QUINONES i ty of [facility] 2022-05-10 2022-05-10 Office [facility] 1.2.840.114 [id number] Univers 10:30:00 11:16:27 Visit Saima LISA 350.1.13.10 i ty [place] [id number] Oh dical NAL 085 [facility] 2022-04-13 2022-04-13 Telephone [facility] 1.2.228.864 [id number] Univers 00:00:00 00:00:00 Noel LISA 350.1.13.10 ity [place] [id number] Oh dicsd NAL 059 [facility] 2022-04-09 2022-04-09 Emergency [facility] [id number] Univers 17:30:00 21:09:00 AMBICA ity [facility] 2022-04-09 2022-04-09 Emergency [facility] 1.2.840.114 [id number] Univers 17:30:00 21:09:00 [facility] 350.1.13.10 i ty [place] [id number] [facility] [address] [place] [address] 2022-03-30 2022-03-30 Outpatient R SAIMA QUINONES [facility] 10 [id number] Univers 10:30:00 10:30:00 SAIMA QUINONES i ty of [facility] 2022-03-30 2022-03-30 Outpatient R SAIMA QUINONES [facility] 10 [id number] Univers 10:30:00 10:30:00 SAIMA QUINONES i ty of [facility] 2022-03-15 2022-03-15 Outpatient [facility] [id number] Univers 00:00:00 00:00:00 ity of [facility] 2022-03-15 2022-03-15 Outpatient [facility] [id number] Univers 00:00:00 00:00:00 ity of [facility] 2022-03-07 2022-03-07 Transition EWELINA Diehl 1.2.840.114 [id number] Univers 00:00:00 00:00:00 of Care Karen SÁNCHEZ 350.1.13.10 i [place] [phone] [facility] [address] 2022-03-06 2022-03-06 Telephone [facility] UNIT [id number] Univers 00:00:00 00:00:00 Saima LISA 350.1.13.10 i ty of [place] [id number] Oh dical [facility] 2022-03-05 2022-03-05 Emergency [facility] ERT [id number] Univers 20:13:00 22:47:00 CHRISTOPHER it y [facility] 2022-03-05 2022-03-05 Emergency [place], [facility] [id number] Univers 20:13:00 22:47:00 Rebekah LISA 350.1.13.10 ity [facility] [place] [id number] [place] [address] [place] 2022-03-05 2022-03-05 Emergency X [facility] ERT [id number] Univers 20:13:00 22:47:00 CHRISTOPHER it y [facility] 2022-02-27 2022-03-04 Inpatient X MIKE [facility] JESICA [id number] Univers 10:08:00 18:00:00 SIXTO phillips [facility] 2022-02-27 2022-03-04 Inpatient X MIKE [facility] JESICA [id number] Univers 10:08:00 18:00:00 SIXTO phillips [facility] 2022-02-27 2022-03-04 [facility] Grecia Gandhi [facility] 1.2.840.11 [id number] Univers 10:08:00 18:00:00 Encounter Sixto Mckeon 350.1.13.10 ity of [facility] [place] [id number] [facility] [address] 2022-02-27 2022-03-04 Inpatient X MIKE [facility] [id number] Univers 10:08:00 18:00:00 SIXTO phillips [facility] 2022-02-27 2022-02-27 [facility] [id number] Univers 09:20:00 10:15:56 [facility] 2022-02-27 2022-02-27 Urgent Gabriela Underwood [facility] 1.2.840. 114 [id number] Univers 09:20:00 10:15:56 Otis Starr [facility] 350.1.13.10 [facility] 4.2.7.2.686 [place] as VIANCA?BLEA [phone] Oh [address] MEDICAL OFFICE BUILDING 2022-02-27 2022-02-27 [facility]patient [facility] [id number] Univers 09:20:00 10:15:56 [facility] 2022-02-27 2022-02-27 Outpatient [facility] [id number] Univers 09:20:00 10:15:56 [facility] 2022-02-27 2022-02-27 Inpatient X MIKE [facility] JESICA [id number] Univers 10:08:00 10:08:00 SIXTO phillips [facility] 2022-02-21 2022-02-21 Outpatient R ANICETO, [facility] [id number] Univers 14:00:00 14:00:00 [facility]EL [facility] 2022-02-21 2022-02-21 Outpatient R ANICETO, [facility] [id number] Univers 14:00:00 14:00:00 QIAXU [facility] 2022-02-21 2022-02-21 Outpatient R ANICETO, [facility] [id number] Univers 14:00:00 14:00:00 NOEL [facility] 2022-02-21 2022-02-21 Outpatient R ANICETO, [facility] [id number] Univers 14:00:00 14:00:00 SEFERINOXU [facility] 2022-01-18 2022-01-18 Telephone Aniceto, [facility] [id number] Univers 00:00:00 00:00:00 Noel [place] 350.1.13.10 ity of [place] [id number] Oh dical NAL 059 [facility] 2022-01-03 2022-01-03 Outpatient R ANICETO, [facility] [id number] Univers 00:00:00 00:00:00 QIANGJUN ity o f [facility] 2022-01-03 2022-01-03 Outpatient R ANICETO, [facility] [id number] Univers 00:00:00 00:00:00 QIANGJUN ity o f [facility] 2022-01-03 2022-01-03 Outpatient R ANICETO, [facility] [id number] Univers 00:00:00 00:00:00 NOEL ity o f [facility] 2021-12-21 2021-12-21 [facility] [facility] 2, Adc Lab [facility] 1.2.840.114 [id number] Univers 10:45:00 11:00:00 Visit Noel More[place] 350.1.13.10 it[place] [id number] Oh dical NAL 353 [facility] 2021-12-21 2021-12-21 Outpatient R ANICETO, [facility] [id number] Univers 10:45:00 10:45:00 SEFERINONGJUN ity o f [facility] 2021-12-21 2021-12-21 Outpatient R ANICETO, [facility] [id number] Univers 09:40:00 10:18:00 SEFERINONGSAMPSON ity o f [facility] 2021-12-21 2021-12-21 Office Aniceto, [facility] 1.2.840.114 [id number] Univers 09:40:00 10:18:00 Visit Noel EDGARTON 350.1.13.10 it[place] of [place] [id number] Oh dical NAL 059 [facility] 2021-12-21 2021-12-21 Outpatient R ANICETO, [facility] [id number] Univers 09:40:00 10:18:00 TERRASAMPSON ity o f [facility] 2021-12-06 2021-12-06 [facility] 1.2.837.448 [id number] Univers 00:00:00 00:00:00 Noel LISA 350.1.13.10 ity of [place] [id number] Oh dical NAL 059 [facility] 2021-11-27 2021-11-27 [facility] 1.2.214.326 [id number] Univers 00:00:00 00:00:00 Noel LISA 350.1.13.10 it[place] of [place] [id number] Oh dical NAL 059 [facility] 2021-11-22 2021-11-22 Telephone [facility] 1.2.444.618 [id number] Univers 00:00:00 00:00:00 Saima LISA 350.1.13.10 i ty of [place] [id number] Oh dicsd NAL 085 [facility] 2021-11-16 2021-11-16 Outpatient R SAIMA QUINONES [facility] 10 [id number] Univers 11:53:07 23:59:00 SAIMA QUINONES i ty [facility] 2021-11-16 2021-11-16 Outpatient R SAIMA QUINONES [facility] 10 [id number] Univers 11:53:07 23:59:00 SAIMA QUINONES i ty of [facility] 2021-11-16 2021-11-16 [facility] 1.2.840.114 [id number] Univers 11:53:07 23:59:00 Encounter Saima LISA 350.1.13.10 it[place] [id number] [facility] [address] [place] 2021-11-16 2021-11-16 [facility] 1.2.840.114 [id number] Univers 11:00:00 11:30:00 Visit Saima LISA 350.1.13.10 i ty [place] [id number] Oh dical NAL 085 [facility] 2021-11-16 2021-11-16 Outpatient R JONI SAIMA [facility] 10 [id number] Univers 11:00:00 11:00:00 SAIMA QUINONES i ty of [facility] 2021-11-16 2021-11-16 Outpatient R JONI CHRISTNSuhas [facility] 10 [id number] Univers 11:00:00 11:00:00 JONI SAIMA i ty of [facility] 2021-11-16 2021-11-16 Refill [facility] 1.2.840.114 [id number] Univers 00:00:00 00:00:00 Noel LISA 350.1.13.10 ity of [place] [id number] [facility] 2021-11-13 2021-11-13 Office [facility] 1.2.840.114 [id number] Univers 16:00:00 16:32:39 Visit Seferinoxu LISA 350.1.13.10 ity of [place] [id number] Oh dic[address] 2021-11-13 2021-11-13 Outpatient R [facility] [id number] Univers 16:00:00 16:32:39 TERRASAMPSON jety o f [facility] 2021-11-13 2021-11-13 Outpatient R [facility] [id number] Univers 16:00:00 16:32:39 NOEL chaudharyy o f [facility] 2021-11-13 2021-11-13 Orders Doctor [place] 1.2.840.114 [id number] Univers 00:00:00 00:00:00 Only Unassigned, JOHANNY 350.1.13.10 ity of [place] [facility] 4.2.7.2.686 Brandt as [id number] [address] Results Test Description Test Time Test Comments Results Result Comments Source POCT GLUCOSE (AUTOMATED) 2023-04-01 17:55:13 Test Item Value Reference Range Interpretation Comme nts POCT GLU (test code = 0127553779) 108 mg/dL 70-110 Lab Interpretation (test code = 59169-8) [facility] [id number] 15:16:32 Test Item Value Reference Range Interpretation Comments FUNGUS CULTURE (test code = No fungi isolated 580-1) Lab Interpretation (test Normal code = 40410-5) [facility] GLUCOSE (AUTOMATED)2023-04-01 12:59:24 Test Item Value Reference Range Interpretation Comments POCT GLU (test code = 8367471607) 131 mg/dL 70-110 H Lab Interpretation (test code = Abnormal 05109-9) [facility] GLUCOSE (AUTOMATED)2023-04-01 11:58:06 Test Item Value Reference Range Interpretation Comments POCT GLU (test code = 2180130806) 160 mg/dL 70-110 H Lab Interpretation (test code = Abnormal 82153-7) [facility] GLUCOSE (AUTOMATED)2023-04-01 09:20:17 Test Item Value Reference Range Interpretation Comments POCT GLU (test code = 174 mg/dL 70-110 H Notifi ed Provider [id number]) Lab Interpretation (test Abnormal code = 54346-5) [facility] GLUCOSE (AUTOMATED)2023-04-01 04:38:30 Test Item Value Reference Range Interpretation Comments POCT GLU (test code = 136 mg/dL 70-110 H Notifi ed Provider [id number]) Lab Interpretation (test Abnormal code = 30830-5) [facility] GLUCOSE (AUTOMATED)2023-03-31 22:53:39 Test Item Value Reference Range Interpretation Comments POCT GLU (test code = 5473956685) 132 mg/dL 70-110 H Lab Interpretation (test code = Abnormal 29654-9) [facility] GLUCOSE (AUTOMATED)2023-03-31 17:56:29 Test Item Value Reference Range Interpretation Comments POCT GLU (test code = 149 mg/dL 70-110 H Notifi ed Provider [id number]) Lab Interpretation (test Abnormal code = 69170-0) [facility] GLUCOSE (AUTOMATED)2023-03-31 13:53:42 Test Item Value Reference Range Interpretation Comments POCT GLU (test code = 2998909793) 138 mg/dL 70-110 H Lab Interpretation (test code = Abnormal 00865-6) [facility] GLUCOSE (AUTOMATED)2023-03-31 12:45:51 Test Item Value Reference Range Interpretation Comments POCT GLU (test code = 9142003187) 136 mg/dL 70-110 H Lab Interpretation (test code = Abnormal 50176-4) [facility] GLUCOSE (AUTOMATED)2023-03-31 11:01:20 Test Item Value Reference Range Interpretation Comments POCT GLU (test code = 4624541909) 135 mg/dL 70-110 H Lab Interpretation (test code = Abnormal 78121-7) [facility] GLUCOSE (AUTOMATED)2023-03-31 05:01:46 Test Item Value Reference Range Interpretation Comments POCT GLU (test code = 6178107470) 149 mg/dL 70-110 H Lab Interpretation (test code = Abnormal 07211-2) [facility] GLUCOSE (AUTOMATED)2023-03-30 23:34:33 Test Item Value Reference Range Interpretation Comments POCT GLU (test code = 4240525653) 141 mg/dL 70-110 H Lab Interpretation (test code = Abnormal 57830-5) [facility] GLUCOSE (AUTOMATED)2023-03-30 17:22:35 Test Item Value Reference Range Interpretation Comments POCT GLU (test code = 4317318757) 149 mg/dL 70-110 H Lab Interpretation (test code = Abnormal 26665-6) [facility] GLUCOSE (AUTOMATED)2023-03-30 15:06:15 Test Item Value Reference Range Interpretation Comments POCT GLU (test code = 1146997812) 159 mg/dL 70-110 H Lab Interpretation (test code = Abnormal 51762-3) [facility] GLUCOSE (AUTOMATED)2023-03-30 11:14:43 Test Item Value Reference Range Interpretation Comments POCT GLU (test code = 3024475442) 159 mg/dL 70-110 H Lab Interpretation (test code = Abnormal 60588-8) [facility] GLUCOSE (AUTOMATED)2023-03-30 05:18:41 Test Item Value Reference Range Interpretation Comments POCT GLU (test code = 9637273586) 181 mg/dL 70-110 H Lab Interpretation (test code = Abnormal 79301-6) [facility] GLUCOSE (AUTOMATED)2023-03-30 04:07:12 Test Item Value Reference Range Interpretation Comments POCT GLU (test code = 9262952131) 189 mg/dL 70-110 H Lab Interpretation (test code = Abnormal 39664-3) [facility] GLUCOSE (AUTOMATED)2023-03-29 23:45:36 Test Item Value Reference Range Interpretation Comments POCT GLU (test code = 8920795390) 152 mg/dL 70-110 H Lab Interpretation (test code = Abnormal 32164-8) [facility] [id number] 21:42:08 Test Item Value Reference Range Interpretation Comments WBC (test code = 9.09 See_Comment [Automated message] 6690-2) The system [employer] generated this result transmitted ref erence range: 4.20 - 1 0.70 10*3/?L. The reference range was not used to int erpret this result as normal/abnormal . RBC (test code = 789-8) 3.56 See_Comment L [Au tomated message] The system [employer] generated this result transmitted ref erence range: 4.26 - 5 .52 10*6/?L. The reference range was not used to int erpret this result as normal/abnormal . HGB (test code = 718-7) 10.0 g/dL 12.2-16.4 L HCT (test code = 32.0 % 38.4-49.3 L 4544-3) MCH (test code = 785-6) 28.1 pg 26.1-32.7 MCV (test code = 787-2) 89.9 fL 81.7-95.6 MCHC (test code = 31.3 g/dL 31.2-35.0 786-4) PLT (test code = 777-3) 128 See_Comment L [Au tomated message] The system [employer] generated this result transmitted ref erence range: 150 - 32 8 10*3/?L. The reference range was not used to int erpret this result as normal/abnormal . MPV (test code = 11.3 fL 9.8-13.0 63475-0) RDW-CV (test code = 16.6 % 12.1-15.4 H 788-0) RDW-SD (test code = 55.1 fL 38.5-51.6 H 63227-9) NRBC x10^3 (test code = See_Comment [Au tomated message] 2017403916) The system [employer] generated this result transmitted ref erence range: 10*3/?L. The reference range was not used to int erpret this result as normal/abnormal . NRBC/100 WBC (test code 0.0 See_Comment [Au tomated message] = 5175530725) The system [employer] generated this result transmitted ref erence range: 0.0 - 10 .0 /100 WBCs. The reference range was not used to int erpret this result as normal/abnormal . IPF % (test code = 7.1 % 1.2-10.7 Platelet count 0894138621) measured by fluorescence me thod. Lab Interpretation Abnormal (test code = 89392-9) [facility] 21:41:33 Test Item Value Reference Range Interpretation Comments PHOSPHORUS (test code = 7997438685) 3.5 mg/dL 2.5-5.0 Lab Interpretation (test code = Normal 89680-1) [facility]23-[facility]28 21:35:12 Test Item Value Reference Range Interpretation Comments APTT Patient (test code 38 See_Comment H [Au tomated message] = 3173-2) The system [employer] generated this result transmitted ref erence range: 26 - 36 Seconds. The reference range was not used to int erpret this result as normal/abnormal . Lab Interpretation (test Abnormal code = 09623-4) [facility]AB[facility]+COOX+NA+K+GLU+CA2+2023-03-29 21:20:42 Test Item Value Reference Range Interpretation Comments PH (test code = 2) 7.40 7.35-7.45 PCO2 (test code = 42 See_Comment [Automate d message] 2150600318) The system [employer] generated this result transmit che reference range : 35 - 45 mmHg. The reference range was not used to interpret this result as normal/abnormal . PO2 (test code = 198 See_Comment H [Automated message] 6038364937) The system [employer] generated this result transmit che reference range : 80 - 100 mmHg. The reference range was not used to interpret this result as normal/abnormal . HCO3 (test code = 25 See_Comment [Automate d message] 8018137665) The system [employer] generated this result transmit che reference range : 22 - 26 mEq/L. The reference range was not used to interpret this result as normal/abnormal . BE (test code = 0.5 See_Comment [Automated message] 7123003392) The system [employer] generated this result transmit che reference range : -3.0 - 3.0 mEq/ L. The reference r kyra was not used to interpret this result as normal/abnormal . THB (test code = 9.5 g/dL 13.5-18.0 L 8083512579) %O2HB (test code = 97.5 % 94.0-99.0 6825098286) %COHB ART (test code = 1.5 % 0.0-1.5 5178016489) %METHB ART (test code = 0.4 % 0.4-1.5 0194888451) VOL%O2 ART (test code = 13.5 % 15.0-23.0 L QUES 6126547072) NA (test code = 135 mmol/L 135-145 0626973597) K+ (test code = 4.6 mmol/L 3.5-5.0 8433259252) AC CA IONZ (test code = 4.40 mg/dL 4.50-5.30 L 2678251593) GLUCOSE (test code = 104 mg/dL 70-110 0755998162) Lab Interpretation Abnormal (test code = 70336-4) [facility] GLUCOSE (AUTOMATED)2023-03-29 21:08:58 Test Item Value Reference Range Interpretation Comments POCT GLU (test code = 2705370289) 140 mg/dL 70-110 H Lab Interpretation (test code = Abnormal 87765-6) [facility] Packed RBC (in units), 1 Units 2023-03-29 16:13:23 Test Item Value Reference Range Interpretation Comments Cross Match Result Compatible (test code = 4409) ISBT Blood Type Code 5100 (test code = 630810) Unit Blood Type (test O Pos code = 4410) Unit Number (test [id number] code = 4411) Blood Expiration Date & Time (test code = 981866) Status Information Issued (test code = 4412) Product Red Blood Cells Identification (test code = 4413) Product Code (test [id number] Performed at [facility] code = 4414) Laboratory Services - [facility] Blood [address] [address]Tfgg Free: [phone] A No. [id number] [facility] Hospital[facility] Packed RBC (in units), 2 Units 2023-03-29 13:16:36 Test Item Value Reference Range Interpretation Comments Cross Match Result Compatible (test code = 4409) ISBT Blood Type Code 5100 (test code = 266948) Unit Blood Type (test O Pos code = 4410) Unit Number (test [id number] code = 4411) Blood Expiration Date 833395381441 & Time (test code = 748521) Status Information Issued (test code = 4412) Product Red Blood Cells Identification (test code = 4413) Product Code (test [id number] Performed at [facility] code = 4414) Laboratory Services - [facility] Blood [address] [address]Kbst Free: [phone] A No. [id number] [facility]2023-[facility]-28 09:29:07 Test Item Value Reference Range Interpretation Comments MAGNESIUM (test code = 7675127666) 1.7 mg/dL 1.7-2.4 Lab Interpretation (test code = Normal 77370-9) [facility]23-[facility]28 09:29:07 Test Item Value Reference Range Interpretation Comments PHOSPHORUS (test code = 6569541593) 2.6 mg/dL 2.5-5.0 Lab Interpretation (test code = Normal 23348-2) [facility] METABOLIC PANEL (NA, K, CL, CO2, GLUCOSE, BUN, CREATININE, CA)2023-03-29 09:29:06 Test Item Value Reference Range Interpretation Comments NA (test code = 138 mmol/L 135-145 2097737534) K (test code = 4.4 mmol/L 3.5-5.0 8458903285) CL (test code = 101 mmol/L 98-108 6031814823) CO2 TOTAL (test code = 30 mmol/L 23-31 6399209165) AGAP (test code = 7 2-16 5382314664) BUN (test code = 23 mg/dL 7-23 0490528532) GLUCOSE (test code = 92 mg/dL 70-110 9327336521) CREATININE (test code = 2.55 mg/dL 0.60-1.25 H 1356151477) CALCIUM (test code = 8.7 mg/dL 8.6-10.6 8025300147) eGFR (test code = 25.8 mL/min/1.73m2 7121078201) MIKAYLA (test code = MIKAYLA) Association of Glomerular Filtration Rate (GFR) and Staging of Kidney Disease* + --+ --+ ------+| GFR (mL/min/1.73 m2) ?| With Kidney Damage ?| ?Without Kidney Damage+ --------+ --------+ +| ?>90 ?| ?Stage one ?| ? Normal ?+ ---+ ---+ -------+| ?60-89 ?| ?Stage two ?| ? Decreased GFR ? + --+ --+ ------+| ?30-59 ?| ?Stage three ?| ? Stage three ? + --+ --+ ------+| ?15-29 ?| ?Stage four ? | ? Stage four ?+ ---+ ---+ -------+| ?<15 (or dialysis) ? ?| ?Stage five ? | ? Stage five ?+ ---+ ---+ -------+ *Each stage assumes the associated GFR level has been in effect for at least three months. ?Stages 1 to 5, with or without kidney disease, indicate chronic kidney disease. Notes: Determination of stages one and two (with eGFR >59mL/min/1.73 m2) requires estimation of kidney damage for at least three months as defined by structural or functional abnormalities of the kidney, manifested by either:Pathological abnormalities or Markers of kidney damage (including abnormalities in the composition of the blood or urine or abnormalities in imaging tests). Lab Interpretation Abnormal (test code = 96688-5) [facility] GLUCOSE (AUTOMATED)2023-03-29 09:16:54 Test Item Value Reference Range Interpretation Comments POCT GLU (test code = 3845881987) 98 mg/dL 70-110 Lab Interpretation (test code = Normal 09602-5) [facility] WITH [id number] 09:16:04 Test Item Value Reference Range Interpretation Comments WBC (test code = 6.73 See_Comment [Automated 6690-2) message] The sy stem which generated this result transmitted reference range : 4.20 - 10.70 10*3/?L. The reference range was not used to interpret this result as normal/abnormal . RBC (test code = 2.81 See_Comment L [Automated 789-8) message] The sy stem which generated this result transmitted reference range : 4.26 - 5.52 10*6/?L. The reference range was not used to interpret this result as normal/abnormal . HGB (test code = 7.7 g/dL 12.2-16.4 L 718-7) HCT (test code = 25.3 % 38.4-49.3 L 4544-3) MCV (test code = 90.0 fL 81.7-95.6 787-2) MCH (test code = 27.4 pg 26.1-32.7 785-6) MCHC (test code = 30.4 g/dL 31.2-35.0 L 786-4) RDW-SD (test code = 59.1 fL 38.5-51.6 H 93525-7) RDW-CV (test code = 18.3 % 12.1-15.4 H 788-0) PLT (test code = 121 See_Comment L [Automated 777-3) message] The sy stem which generated this result transmitted reference range : 150 - 328 10*3/ ?L. The reference r kyra was not used to interpret this result as normal/abnormal . MPV (test code = 11.4 fL 9.8-13.0 95177-4) NRBC/100 WBC (test 0.0 See_Comment [Automat ed code = 9167767170) message] The system which generated this result transmitted reference range : 0.0 - 10.0 /100 WBCs. The refer ence range was not u sed to interpret th is result as normal/abnormal . NRBC x10^3 (test code See_Comment [Auto mated = 9721869235) message] The s ystem which generated this result transmitted reference range : 10*3/?L. The reference range was not used to interpret this result as normal/abnormal . GRAN MAT (NEUT) % 68.1 % (test code = 770-8) IMM GRAN % (test code 0.60 % = 1071852502) LYMPH % (test code = 16.5 % 736-9) MONO % (test code = 6.8 % 5905-5) EOS % (test code = 7.6 % 713-8) BASO % (test code = 0.4 % 706-2) GRAN MAT x10^3(ANC) 4.58 10*3/uL 1.99-6.95 (test code = 7615712860) IMM GRAN x10^3 (test 0.04 10*3/uL 0.00-0.06 code = 6612646627) LYMPH x10^3 (test code 1.11 10*3/uL 1.09-3.23 = 731-0) MONO x10^3 (test code 0.46 10*3/uL 0.36-1.02 = 742-7) EOS x10^3 (test code = 0.51 10*3/uL 0.06-0.53 711-2) BASO x10^3 (test code 0.03 10*3/uL 0.01-0.09 = 704-7) Lab Interpretation Abnormal (test code = 09986-1) [facility] GLUCOSE (AUTOMATED)2023-03-29 04:38:01 Test Item Value Reference Range Interpretation Comments POCT GLU (test code = 6356061329) 161 mg/dL 70-110 H Lab Interpretation (test code = Abnormal 87891-0) [facility] GLUCOSE (AUTOMATED)2023-03-28 23:26:34 Test Item Value Reference Range Interpretation Comments POCT GLU (test code = 8621333976) 168 mg/dL 70-110 H Lab Interpretation (test code = Abnormal 39483-6) [facility] GLUCOSE (AUTOMATED)2023-03-28 18:41:12 Test Item Value Reference Range Interpretation Comments POCT GLU (test code = 9947353823) 136 mg/dL 70-110 H Lab Interpretation (test code = Abnormal 73524-4) [facility]2023-03-28 13:51:58 Test Item Value Reference Range Interpretation Comments POCT GLU (test code = 2925763047) 117 mg/dL 70-110 H Lab Interpretation (test code = Abnormal 55320-8) [facility] METABOLIC PANEL (NA, K, CL, CO2, GLUCOSE, BUN, CREATININE, CA)2023-03-28 11:56:34 Test Item Value Reference Range Interpretation Comments NA (test code = 135 mmol/L 135-145 6710168150) K (test code = 4.0 mmol/L 3.5-5.0 6774894151) CL (test code = 99 mmol/L 98-108 4919692746) CO2 TOTAL (test code = 28 mmol/L 23-31 [id number]) AGAP (test code = 8 2-16 [id number]) BUN (test code = 38 mg/dL 7-23 H [id number]) GLUCOSE (test code = 47 mg/dL 70-110 LL [id number]) CREATININE (test code = 3.15 mg/dL 0.60-1.25 H [id number]) CALCIUM (test code = 8.2 mg/dL 8.6-10.6 L [id number]) eGFR (test code = 20.2 mL/min/1.73m2 1354657730) MIKAYLA (test code = MIKAYLA) Association of Glomerular Filtration Rate (GFR) and Staging of Kidney Disease* + --+ --+ ------+| GFR (mL/min/1.73 m2) ?| With Kidney Damage ?| ?Without Kidney Damage+ --------+ --------+ +| ?>90 ?| ?Stage one ?| ? Normal ?+ ---+ ---+ -------+| ?60-89 ?| ?Stage two ?| ? Decreased GFR ? + --+ --+ ------+| ?30-59 ?| ?Stage three ?| ? Stage three ? + --+ --+ ------+| ?15-29 ?| ?Stage four ? | ? Stage four ?+ ---+ ---+ -------+| ?<15 (or dialysis) ? ?| ?Stage five ? | ? Stage five ?+ ---+ ---+ -------+ *Each stage assumes the associated GFR level has been in effect for at least three months. ?Stages 1 to 5, with or without kidney disease, indicate chronic kidney disease. Notes: Determination of stages one and two (with eGFR >59mL/min/1.73 m2) requires estimation of kidney damage for at least three months as defined by structural or functional abnormalities of the kidney, manifested by either:Pathological abnormalities or Markers of kidney damage (including abnormalities in the composition of the blood or urine or abnormalities in imaging tests). Lab Interpretation Abnormal (test code = 32558-4) [facility]46 Test Item Value Reference Range Interpretation Comments MAGNESIUM (test code = 5805874359) 1.4 mg/dL 1.7-2.4 L Lab Interpretation (test code = Abnormal 16506-5) [facility] 11:28:05 Test Item Value Reference Range Interpretation Comments POCT GLU (test code = 9641165599) 85 mg/dL 70-110 Lab Interpretation (test code = Normal 18038-9) [facility] WITH [id number] 11:27:04 Test Item Value Reference Range Interpretation Comments WBC (test code = 8.16 See_Comment [Automated 6690-2) message] The sy stem which generated this result transmitted reference range : 4.20 - 10.70 10*3/?L. The reference range was not used to interpret this result as normal/abnormal . RBC (test code = 2.90 See_Comment L [Automated 559-8) message] The sy stem which generated this result transmitted reference range : 4.26 - 5.52 10*6/?L. The reference range was not used to interpret this result as normal/abnormal . HGB (test code = 8.0 g/dL 12.2-16.4 L 718-7) HCT (test code = 25.9 % 38.4-49.3 L 4544-3) MCV (test code = 89.3 fL 81.7-95.6 787-2) MCH (test code = 27.6 pg 26.1-32.7 785-6) MCHC (test code = 30.9 g/dL 31.2-35.0 L 786-4) RDW-SD (test code = 60.1 fL 38.5-51.6 H 78873-7) RDW-CV (test code = 18.3 % 12.1-15.4 H 788-0) PLT (test code = 136 See_Comment L [Automated 777-3) message] The sy stem which generated this result transmitted reference range : 150 - 328 10*3/ ?L. The reference r kyra was not used to interpret this result as normal/abnormal . MPV (test code = 13.2 fL 9.8-13.0 H 64419-4) IPF % (test code = 7.9 % 1.2-10.7 Platelet count 1591484529) measured by fluorescence method. NRBC/100 WBC (test 0.0 See_Comment [Automat ed code = 6360193586) message] The system which generated this result transmitted reference range : 0.0 - 10.0 /100 WBCs. The refer ence range was not u sed to interpret th is result as normal/abnormal . NRBC x10^3 (test code See_Comment [Auto mated = 4928354579) message] The s ystem which generated this result transmitted reference range : 10*3/?L. The reference range was not used to interpret this result as normal/abnormal . GRAN MAT (NEUT) % 66.4 % (test code = 770-8) IMM GRAN % (test code 0.40 % = 3087995546) LYMPH % (test code = 17.0 % 736-9) MONO % (test code = 8.5 % 5905-5) EOS % (test code = 7.1 % 713-8) BASO % (test code = 0.6 % 706-2) GRAN MAT x10^3(ANC) 5.42 10*3/uL 1.99-6.95 (test code = 7299085396) IMM GRAN x10^3 (test 0.03 10*3/uL 0.00-0.06 code = 7976084903) LYMPH x10^3 (test code 1.39 10*3/uL 1.09-3.23 = 731-0) MONO x10^3 (test code 0.69 10*3/uL 0.36-1.02 = 742-7) EOS x10^3 (test code = 0.58 10*3/uL 0.06-0.53 H 711-2) BASO x10^3 (test code 0.05 10*3/uL 0.01-0.09 = 704-7) Lab Interpretation Abnormal (test code = 63156-2) [facility] GLUCOSE (AUTOMATED)2023-03-28 10:57:04 Test Item Value Reference Range Interpretation Comments POCT GLU (test code = 6452175124) 64 mg/dL 70-110 L Lab Interpretation (test code = Abnormal 11963-1) [facility] GLUCOSE (AUTOMATED)2023-03-28 10:41:36 Test Item Value Reference Range Interpretation Comments POCT GLU (test code = 4050262845) 53 mg/dL 70-110 L Lab Interpretation (test code = Abnormal 94575-8) [facility] [id number] 10:41:00 Test Item Value Reference Range Interpretation Comments ABO & RH (test code = 20) O POSITIVE IAT (test code = 1185) Negative [facility] GLUCOSE (AUTOMATED)2023-03-28 04:54:12 Test Item Value Reference Range Interpretation Comments POCT GLU (test code = 3919925617) 94 mg/dL 70-110 Lab Interpretation (test code = Normal 06984-6) [facility] GLUCOSE (AUTOMATED)2023-03-28 01:51:03 Test Item Value Reference Range Interpretation Comments POCT GLU (test code = 8675513318) 127 mg/dL 70-110 H Lab Interpretation (test code = Abnormal 07196-3) [facility] GLUCOSE (AUTOMATED)2023-03-27 23:15:54 Test Item Value Reference Range Interpretation Comments POCT GLU (test code = 6663000740) 131 mg/dL 70-110 H Lab Interpretation (test code = Abnormal 52160-7) [facility] GLUCOSE (AUTOMATED)2023-03-27 17:11:25 Test Item Value Reference Range Interpretation Comments POCT GLU (test code = 1740452539) 71 mg/dL 70-110 Lab Interpretation (test code = Normal 87202-0) [facility] GLUCOSE (AUTOMATED)2023-03-27 14:46:55 Test Item Value Reference Range Interpretation Comments POCT GLU (test code = 8218654875) 114 mg/dL 70-110 H Lab Interpretation (test code = Abnormal 89539-2) [facility] GLUCOSE (AUTOMATED)2023-03-27 05:10:03 Test Item Value Reference Range Interpretation Comments POCT GLU (test code = 4417288489) 87 mg/dL 70-110 Lab Interpretation (test code = Normal 91622-9) [facility] GLUCOSE (AUTOMATED)2023-03-27 02:02:29 Test Item Value Reference Range Interpretation Comments POCT GLU (test code = 0263664190) 117 mg/dL 70-110 H Lab Interpretation (test code = Abnormal 59701-4) [facility] GLUCOSE (AUTOMATED)2023-03-26 22:36:32 Test Item Value Reference Range Interpretation Comments POCT GLU (test code = 2567898913) 133 mg/dL 70-110 H Lab Interpretation (test code = Abnormal 34509-2) [facility] GLUCOSE (AUTOMATED)2023-03-26 17:03:24 Test Item Value Reference Range Interpretation Comments POCT GLU (test code = 3309254280) 105 mg/dL 70-110 Lab Interpretation (test code = Normal 15967-5) [facility] GLUCOSE (AUTOMATED)2023-03-26 17:03:24 Test Item Value Reference Range Interpretation Comments POCT GLU (test code = 8994667658) 105 mg/dL 70-110 Lab Interpretation (test code = Normal 33179-6) [facility] GLUCOSE (AUTOMATED)2023-03-26 12:57:12 Test Item Value Reference Range Interpretation Comments POCT GLU (test code = 4883204070) 115 mg/dL 70-110 H Lab Interpretation (test code = Abnormal 52940-9) [facility] GLUCOSE (AUTOMATED)2023-03-26 12:57:12 Test Item Value Reference Range Interpretation Comments POCT GLU (test code = 1807118470) 115 mg/dL 70-110 H Lab Interpretation (test code = Abnormal 54156-7) [facility] 11[facility]38:40 Test Item Value Reference Range Interpretation Comments PHOSPHORUS (test code = 9929246374) 4.9 mg/dL 2.5-5.0 Lab Interpretation (test code = Normal 67351-4) [facility] 11:38:40 Test Item Value Reference Range Interpretation Comments PHOSPHORUS (test code = 4357076018) 4.9 mg/dL 2.5-5.0 Lab Interpretation (test code = Normal 39579-9) [facility] (NA, K, CL, CO2, GLUCOSE, BUN, CREATININE, CA)2023-03-26 11:38:39 Test Item Value Reference Range Interpretation Comments NA (test code = 133 mmol/L 135-145 L 8031624491) K (test code = 4.2 mmol/L 3.5-5.0 1908622902) CL (test code = 97 mmol/L 98-108 L 8839474453) CO2 TOTAL (test code = 27 mmol/L 23-31 3258233968) AGAP (test code = 9 2-16 5923622660) BUN (test code = 58 mg/dL 7-23 H 0050455647) GLUCOSE (test code = 127 mg/dL 70-110 H 7310436884) CREATININE (test code = 4.19 mg/dL 0.60-1.25 H 5080663288) CALCIUM (test code = 8.4 mg/dL 8.6-10.6 L 4331422691) eGFR (test code = 14.5 mL/min/1.73m2 4934932947) MIKAYLA (test code = MIKAYLA) Association of Glomerular Filtration Rate (GFR) and Staging of Kidney Disease* + --+ --+ ------+| GFR (mL/min/1.73 m2) ?| With Kidney Damage ?| ?Without Kidney Damage+ --------+ --------+ +| ?>90 ?| ?Stage one ?| ? Normal ?+ ---+ ---+ -------+| ?60-89 ?| ?Stage two ?| ? Decreased GFR ? + --+ --+ ------+| ?30-59 ?| ?Stage three ?| ? Stage three ? + --+ --+ ------+| ?15-29 ?| ?Stage four ? | ? Stage four ?+ ---+ ---+ -------+| ?<15 (or dialysis) ? ?| ?Stage five ? | ? Stage five ?+ ---+ ---+ -------+ *Each stage assumes the associated GFR level has been in effect for at least three months. ?Stages 1 to 5, with or without kidney disease, indicate chronic kidney disease. Notes: Determination of stages one and two (with eGFR >59mL/min/1.73 m2) requires estimation of kidney damage for at least three months as defined by structural or functional abnormalities of the kidney, manifested by either:Pathological abnormalities or Markers of kidney damage (including abnormalities in the composition of the blood or urine or abnormalities in imaging tests). Lab Interpretation Abnormal (test code = 35161-5) [facility] 11:38:39 Test Item Value Reference Range Interpretation Comments MAGNESIUM (test code = 2387240593) 1.4 mg/dL 1.7-2.4 L Lab Interpretation (test code = Abnormal 65825-0) [facility] (NA, K, CL, CO2, GLUCOSE, BUN, CREATININE, CA)2023-03-26 11:38:39 Test Item Value Reference Range Interpretation Comments NA (test code = 133 mmol/L 135-145 L 4100305397) K (test code = 4.2 mmol/L 3.5-5.0 9726408080) CL (test code = 97 mmol/L 98-108 L 4301883082) CO2 TOTAL (test code = 27 mmol/L 23-31 8351946183) AGAP (test code = 9 2-16 8519027542) BUN (test code = 58 mg/dL 7-23 H 1517154110) GLUCOSE (test code = 127 mg/dL 70-110 H 3487009964) CREATININE (test code = 4.19 mg/dL 0.60-1.25 H 7746524869) CALCIUM (test code = 8.4 mg/dL 8.6-10.6 L 2832871657) eGFR (test code = 14.5 mL/min/1.73m2 8061951625) MIKAYLA (test code = MIKAYLA) Association of Glomerular Filtration Rate (GFR) and Staging of Kidney Disease* + --+ --+ ------+| GFR (mL/min/1.73 m2) ?| With Kidney Damage ?| ?Without Kidney Damage+ --------+ --------+ +| ?>90 ?| ?Stage one ?| ? Normal ?+ ---+ ---+ -------+| ?60-89 ?| ?Stage two ?| ? Decreased GFR ? + --+ --+ ------+| ?30-59 ?| ?Stage three ?| ? Stage three ? + --+ --+ ------+| ?15-29 ?| ?Stage four ? | ? Stage four ?+ ---+ ---+ -------+| ?<15 (or dialysis) ? ?| ?Stage five ? | ? Stage five ?+ ---+ ---+ -------+ *Each stage assumes the associated GFR level has been in effect for at least three months. ?Stages 1 to 5, with or without kidney disease, indicate chronic kidney disease. Notes: Determination of stages one and two (with eGFR >59mL/min/1.73 m2) requires estimation of kidney damage for at least three months as defined by structural or functional abnormalities of the kidney, manifested by either:Pathological abnormalities or Markers of kidney damage (including abnormalities in the composition of the blood or urine or abnormalities in imaging tests). Lab Interpretation Abnormal (test code = 43563-2) [facility] 11:38:39 Test Item Value Reference Range Interpretation Comments MAGNESIUM (test code = 5101459020) 1.4 mg/dL 1.7-2.4 L Lab Interpretation (test code = Abnormal 01406-2) [facility] WITH [id number] 10:15:25 Test Item Value Reference Range Interpretation Comments WBC (test code = 7.61 See_Comment [Automated 1650-2) message] The sy stem which generated this result transmitted reference range : 4.20 - 10.70 10*3/?L. The reference range was not used to interpret this result as normal/abnormal . RBC (test code = 2.81 See_Comment L [Automated 189-8) message] The sy stem which generated this result transmitted reference range : 4.26 - 5.52 10*6/?L. The reference range was not used to interpret this result as normal/abnormal . HGB (test code = 7.9 g/dL 12.2-16.4 L 718-7) HCT (test code = 24.8 % 38.4-49.3 L 4544-3) MCV (test code = 88.3 fL 81.7-95.6 787-2) MCH (test code = 28.1 pg 26.1-32.7 785-6) MCHC (test code = 31.9 g/dL 31.2-35.0 786-4) RDW-SD (test code = 58.8 fL 38.5-51.6 H 99426-1) RDW-CV (test code = 18.4 % 12.1-15.4 H 788-0) PLT (test code = 186 See_Comment [Automated 777-3) message] The sy stem which generated this result transmitted reference range : 150 - 328 10*3/ ?L. The reference r kyra was not used to interpret this result as normal/abnormal . MPV (test code = 12.9 fL 9.8-13.0 99355-2) NRBC/100 WBC (test 0.0 See_Comment [Automat ed code = 4385351091) message] The system which generated this result transmitted reference range : 0.0 - 10.0 /100 WBCs. The refer ence range was not u sed to interpret th is result as normal/abnormal . NRBC x10^3 (test code See_Comment [Auto mated = 5178020511) message] The s ystem which generated this result transmitted reference range : 10*3/?L. The reference range was not used to interpret this result as normal/abnormal . GRAN MAT (NEUT) % 75.1 % (test code = 770-8) IMM GRAN % (test code 0.30 % = 7952963478) LYMPH % (test code = 11.2 % 736-9) MONO % (test code = 7.1 % 5905-5) EOS % (test code = 5.9 % 713-8) BASO % (test code = 0.4 % 706-2) GRAN MAT x10^3(ANC) 5.72 10*3/uL 1.99-6.95 (test code = 8511876990) IMM GRAN x10^3 (test 0.00-0.06 code = 7729749096) LYMPH x10^3 (test code 0.85 10*3/uL 1.09-3.23 L = 731-0) MONO x10^3 (test code 0.54 10*3/uL 0.36-1.02 = 742-7) EOS x10^3 (test code = 0.45 10*3/uL 0.06-0.53 711-2) BASO x10^3 (test code 0.03 10*3/uL 0.01-0.09 = 704-7) Lab Interpretation Abnormal (test code = 98421-6) [facility] WITH [id number] 10:15:25 Test Item Value Reference Range Interpretation Comments WBC (test code = 7.61 See_Comment [Automated 6690-2) message] The sy stem which generated this result transmitted reference range : 4.20 - 10.70 10*3/?L. The reference range was not used to interpret this result as normal/abnormal . RBC (test code = 2.81 See_Comment L [Automated 789-8) message] The sy stem which generated this result transmitted reference range : 4.26 - 5.52 10*6/?L. The reference range was not used to interpret this result as normal/abnormal . HGB (test code = 7.9 g/dL 12.2-16.4 L 718-7) HCT (test code = 24.8 % 38.4-49.3 L 4544-3) MCV (test code = 88.3 fL 81.7-95.6 787-2) MCH (test code = 28.1 pg 26.1-32.7 785-6) MCHC (test code = 31.9 g/dL 31.2-35.0 786-4) RDW-SD (test code = 58.8 fL 38.5-51.6 H 58732-8) RDW-CV (test code = 18.4 % 12.1-15.4 H 788-0) PLT (test code = 186 See_Comment [Automated 777-3) message] The sy stem which generated this result transmitted reference range : 150 - 328 10*3/ ?L. The reference r kyra was not used to interpret this result as normal/abnormal . MPV (test code = 12.9 fL 9.8-13.0 17061-6) NRBC/100 WBC (test 0.0 See_Comment [Automat ed code = 2062250060) message] The system which generated this result transmitted reference range : 0.0 - 10.0 /100 WBCs. The refer ence range was not u sed to interpret th is result as normal/abnormal . NRBC x10^3 (test code See_Comment [Auto mated = 5054015561) message] The s ystem which generated this result transmitted reference range : 10*3/?L. The reference range was not used to interpret this result as normal/abnormal . GRAN MAT (NEUT) % 75.1 % (test code = 770-8) IMM GRAN % (test code 0.30 % = 9189646313) LYMPH % (test code = 11.2 % 736-9) MONO % (test code = 7.1 % 5905-5) EOS % (test code = 5.9 % 713-8) BASO % (test code = 0.4 % 706-2) GRAN MAT x10^3(ANC) 5.72 10*3/uL 1.99-6.95 (test code = 9459082178) IMM GRAN x10^3 (test 0.00-0.06 code = 3508120443) LYMPH x10^3 (test code 0.85 10*3/uL 1.09-3.23 L = 731-0) MONO x10^3 (test code 0.54 10*3/uL 0.36-1.02 = 742-7) EOS x10^3 (test code = 0.45 10*3/uL 0.06-0.53 711-2) BASO x10^3 (test code 0.03 10*3/uL 0.01-0.09 = 704-7) Lab Interpretation Abnormal (test code = 07168-4) [facility] 09:47:10 Test Item Value Reference Range Interpretation Comments POCT GLU (test code = 8855972156) 136 mg/dL 70-110 H Lab Interpretation (test code = Abnormal 98991-8) [facility] GLUCOSE (AUTOMATED)2023-03-26 09:47:10 Test Item Value Reference Range Interpretation Comments POCT GLU (test code = 7682370687) 136 mg/dL 70-110 H Lab Interpretation (test code = Abnormal 03754-8) [facility] GLUCOSE (AUTOMATED)2023-03-26 01:03:34 Test Item Value Reference Range Interpretation Comments POCT GLU (test code = 8716772332) 101 mg/dL 70-110 Lab Interpretation (test code = Normal 15255-2) [facility] GLUCOSE (AUTOMATED)2023-03-26 01:03:34 Test Item Value Reference Range Interpretation Comments POCT GLU (test code = 3061479243) 101 mg/dL 70-110 Lab Interpretation (test code = Normal 95571-7) [facility] GLUCOSE (AUTOMATED)2023-03-25 21:59:25 Test Item Value Reference Range Interpretation Comments POCT GLU (test code = 0891123654) 101 mg/dL 70-110 Lab Interpretation (test code = Normal 34221-9) [facility] GLUCOSE (AUTOMATED)2023-03-25 21:59:25 Test Item Value Reference Range Interpretation Comments POCT GLU (test code = 6700537597) 101 mg/dL 70-110 Lab Interpretation (test code = Normal 09293-9) [facility] GLUCOSE (AUTOMATED)2023-03-25 20:47:38 Test Item Value Reference Range Interpretation Comments POCT GLU (test code = 5423193229) 68 mg/dL 70-110 L Lab Interpretation (test code = Abnormal 46652-7) [facility] GLUCOSE (AUTOMATED)2023-03-25 20:47:38 Test Item Value Reference Range Interpretation Comments POCT GLU (test code = 5005750839) 68 mg/dL 70-110 L Lab Interpretation (test code = Abnormal 64864-9) [facility] GLUCOSE (AUTOMATED)2023-03-25 17:04:54 Test Item Value Reference Range Interpretation Comments POCT GLU (test code = 7421366453) 70 mg/dL 70-110 Lab Interpretation (test code = Normal 48300-5) [facility] GLUCOSE (AUTOMATED)2023-03-25 17:04:54 Test Item Value Reference Range Interpretation Comments POCT GLU (test code = 5106640527) 70 mg/dL 70-110 Lab Interpretation (test code = Normal 02742-6) [facility] GLUCOSE (AUTOMATED)2023-03-25 16:26:22 Test Item Value Reference Range Interpretation Comments POCT GLU (test code = 64 mg/dL 70-110 L Notifi ed Provider [id number]) Lab Interpretation (test Abnormal code = 04088-3) [facility] GLUCOSE (AUTOMATED)2023-03-25 16:26:22 Test Item Value Reference Range Interpretation Comments POCT GLU (test code = 64 mg/dL 70-110 L Notifi ed Provider [id number]) Lab Interpretation (test Abnormal code = 92388-3) [facility] Test Item Value Reference Range Interpretation Comments MAGNESIUM (test code = 5866724848) 1.5 mg/dL 1.7-2.4 L Lab Interpretation (test code = Abnormal 85974-7) [facility] Test Item Value Reference Range Interpretation Comments MAGNESIUM (test code = 2996511557) 1.5 mg/dL 1.7-2.4 L Lab Interpretation (test code = Abnormal 91602-1) [facility] METABOLIC PANEL (NA, K, CL, CO2, GLUCOSE, BUN, CREATININE, CA)2023-03-25 11:00:29 Test Item Value Reference Range Interpretation Comments NA (test code = 135 mmol/L 135-145 4202854580) K (test code = 4.1 mmol/L 3.5-5.0 9511586365) CL (test code = 97 mmol/L 98-108 L 6412442326) CO2 TOTAL (test code = 27 mmol/L 23-31 1258376588) AGAP (test code = 11 2-16 7570757423) BUN (test code = 52 mg/dL 7-23 H 2273100049) GLUCOSE (test code = 89 mg/dL 70-110 1030785646) CREATININE (test code = 4.31 mg/dL 0.60-1.25 H 8691629138) CALCIUM (test code = 8.0 mg/dL 8.6-10.6 L 0009501822) eGFR (test code = 14.1 mL/min/1.73m2 7261221429) MIKAYLA (test code = MIKAYLA) Association of Glomerular Filtration Rate (GFR) and Staging of Kidney Disease* + --+ --+ ------+| GFR (mL/min/1.73 m2) ?| With Kidney Damage ?| ?Without Kidney Damage+ --------+ --------+ +| ?>90 ?| ?Stage one ?| ? Normal ?+ ---+ ---+ -------+| ?60-89 ?| ?Stage two ?| ? Decreased GFR ? + --+ --+ ------+| ?30-59 ?| ?Stage three ?| ? Stage three ? + --+ --+ ------+| ?15-29 ?| ?Stage four ? | ? Stage four ?+ ---+ ---+ -------+| ?<15 (or dialysis) ? ?| ?Stage five ? | ? Stage five ?+ ---+ ---+ -------+ *Each stage assumes the associated GFR level has been in effect for at least three months. ?Stages 1 to 5, with or without kidney disease, indicate chronic kidney disease. Notes: Determination of stages one and two (with eGFR >59mL/min/1.73 m2) requires estimation of kidney damage for at least three months as defined by structural or functional abnormalities of the kidney, manifested by either:Pathological abnormalities or Markers of kidney damage (including abnormalities in the composition of the blood or urine or abnormalities in imaging tests). Lab Interpretation Abnormal (test code = 48796-4) [facility] METABOLIC PANEL (NA, K, CL, CO2, GLUCOSE, BUN, CREATININE, CA)2023-03-25 11:00:29 Test Item Value Reference Range Interpretation Comments NA (test code = 135 mmol/L 135-145 6574988012) K (test code = 4.1 mmol/L 3.5-5.0 2095649641) CL (test code = 97 mmol/L 98-108 L 3727614865) CO2 TOTAL (test code = 27 mmol/L 23-31 2615186805) AGAP (test code = 11 2-16 0024424822) BUN (test code = 52 mg/dL 7-23 H 2284293404) GLUCOSE (test code = 89 mg/dL 70-110 5835465650) CREATININE (test code = 4.31 mg/dL 0.60-1.25 H 7957432937) CALCIUM (test code = 8.0 mg/dL 8.6-10.6 L 1133136619) eGFR (test code = 14.1 mL/min/1.73m2 6351562936) MIKAYLA (test code = MIKAYLA) Association of Glomerular Filtration Rate (GFR) and Staging of Kidney Disease* + --+ --+ ------+| GFR (mL/min/1.73 m2) ?| With Kidney Damage ?| ?Without Kidney Damage+ --------+ --------+ +| ?>90 ?| ?Stage one ?| ? Normal ?+ ---+ ---+ -------+| ?60-89 ?| ?Stage two ?| ? Decreased GFR ? + --+ --+ ------+| ?30-59 ?| ?Stage three ?| ? Stage three ? + --+ --+ ------+| ?15-29 ?| ?Stage four ? | ? Stage four ?+ ---+ ---+ -------+| ?<15 (or dialysis) ? ?| ?Stage five ? | ? Stage five ?+ ---+ ---+ -------+ *Each stage assumes the associated GFR level has been in effect for at least three months. ?Stages 1 to 5, with or without kidney disease, indicate chronic kidney disease. Notes: Determination of stages one and two (with eGFR >59mL/min/1.73 m2) requires estimation of kidney damage for at least three months as defined by structural or functional abnormalities of the kidney, manifested by either:Pathological abnormalities or Markers of kidney damage (including abnormalities in the composition of the blood or urine or abnormalities in imaging tests). Lab Interpretation Abnormal (test code = 71109-3) [facility] WITH [id number] 10:50:28 Test Item Value Reference Range Interpretation Comments WBC (test code = 8.74 See_Comment [Automated 4490-2) message] The sy stem which generated this result transmitted reference range : 4.20 - 10.70 10*3/?L. The reference range was not used to interpret this result as normal/abnormal . RBC (test code = 2.63 See_Comment L [Automated 789-8) message] The sy stem which generated this result transmitted reference range : 4.26 - 5.52 10*6/?L. The reference range was not used to interpret this result as normal/abnormal . HGB (test code = 7.3 g/dL 12.2-16.4 L 718-7) HCT (test code = 23.5 % 38.4-49.3 L 4544-3) MCV (test code = 89.4 fL 81.7-95.6 787-2) MCH (test code = 27.8 pg 26.1-32.7 785-6) MCHC (test code = 31.1 g/dL 31.2-35.0 L 786-4) RDW-SD (test code = 60.1 fL 38.5-51.6 H 90196-2) RDW-CV (test code = 18.4 % 12.1-15.4 H 788-0) PLT (test code = 147 See_Comment L [Automated 777-3) message] The sy stem which generated this result transmitted reference range : 150 - 328 10*3/ ?L. The reference r kyra was not used to interpret this result as normal/abnormal . MPV (test code = 11.4 fL 9.8-13.0 94608-6) NRBC/100 WBC (test 0.0 See_Comment [Automat ed code = 9995778827) message] The system which generated this result transmitted reference range : 0.0 - 10.0 /100 WBCs. The refer ence range was not u sed to interpret th is result as normal/abnormal . NRBC x10^3 (test code See_Comment [Auto mated = 2677456034) message] The s ystem which generated this result transmitted reference range : 10*3/?L. The reference range was not used to interpret this result as normal/abnormal . GRAN MAT (NEUT) % 74.7 % (test code = 770-8) IMM GRAN % (test code 0.50 % = 4569223818) LYMPH % (test code = 12.0 % 736-9) MONO % (test code = 6.8 % 5905-5) EOS % (test code = 5.5 % 713-8) BASO % (test code = 0.5 % 706-2) GRAN MAT x10^3(ANC) 6.54 10*3/uL 1.99-6.95 (test code = 7012299669) IMM GRAN x10^3 (test 0.04 10*3/uL 0.00-0.06 code = 0335066010) LYMPH x10^3 (test code 1.05 10*3/uL 1.09-3.23 L = 731-0) MONO x10^3 (test code 0.59 10*3/uL 0.36-1.02 = 742-7) EOS x10^3 (test code = 0.48 10*3/uL 0.06-0.53 711-2) BASO x10^3 (test code 0.04 10*3/uL 0.01-0.09 = 704-7) Lab Interpretation Abnormal (test code = 10788-6) [facility] WITH [id number] 10:50:28 Test Item Value Reference Range Interpretation Comments WBC (test code = 8.74 See_Comment [Automated 6690-2) message] The sy stem which generated this result transmitted reference range : 4.20 - 10.70 10*3/?L. The reference range was not used to interpret this result as normal/abnormal . RBC (test code = 2.63 See_Comment L [Automated 939-8) message] The sy stem which generated this result transmitted reference range : 4.26 - 5.52 10*6/?L. The reference range was not used to interpret this result as normal/abnormal . HGB (test code = 7.3 g/dL 12.2-16.4 L 718-7) HCT (test code = 23.5 % 38.4-49.3 L 4544-3) MCV (test code = 89.4 fL 81.7-95.6 787-2) MCH (test code = 27.8 pg 26.1-32.7 785-6) MCHC (test code = 31.1 g/dL 31.2-35.0 L 786-4) RDW-SD (test code = 60.1 fL 38.5-51.6 H 38377-6) RDW-CV (test code = 18.4 % 12.1-15.4 H 788-0) PLT (test code = 147 See_Comment L [Automated 777-3) message] The sy stem which generated this result transmitted reference range : 150 - 328 10*3/ ?L. The reference r kyra was not used to interpret this result as normal/abnormal . MPV (test code = 11.4 fL 9.8-13.0 81440-2) NRBC/100 WBC (test 0.0 See_Comment [Automat ed code = 7299978503) message] The system which generated this result transmitted reference range : 0.0 - 10.0 /100 WBCs. The refer ence range was not u sed to interpret th is result as normal/abnormal . NRBC x10^3 (test code See_Comment [Auto mated = 3484044324) message] The s ystem which generated this result transmitted reference range : 10*3/?L. The reference range was not used to interpret this result as normal/abnormal . GRAN MAT (NEUT) % 74.7 % (test code = 770-8) IMM GRAN % (test code 0.50 % = 9998451976) LYMPH % (test code = 12.0 % 736-9) MONO % (test code = 6.8 % 5905-5) EOS % (test code = 5.5 % 713-8) BASO % (test code = 0.5 % 706-2) GRAN MAT x10^3(ANC) 6.54 10*3/uL 1.99-6.95 (test code = 5938948155) IMM GRAN x10^3 (test 0.04 10*3/uL 0.00-0.06 code = 0864462583) LYMPH x10^3 (test code 1.05 10*3/uL 1.09-3.23 L = 731-0) MONO x10^3 (test code 0.59 10*3/uL 0.36-1.02 = 742-7) EOS x10^3 (test code = 0.48 10*3/uL 0.06-0.53 711-2) BASO x10^3 (test code 0.04 10*3/uL 0.01-0.09 = 704-7) Lab Interpretation Abnormal (test code = 39462-8) [facility]44 Test Item Value Reference Range Interpretation Comments POCT GLU (test code = 7719811608) 102 mg/dL 70-110 Lab Interpretation (test code = Normal 91110-6) [facility] GLUCOSE (AUTOMATED)2023-03-25 10:44:44 Test Item Value Reference Range Interpretation Comments POCT GLU (test code = 0871225857) 102 mg/dL 70-110 Lab Interpretation (test code = Normal 11941-5) [facility] GLUCOSE (AUTOMATED)2023-03-25 05:25:51 Test Item Value Reference Range Interpretation Comments POCT GLU (test code = 5766845339) 152 mg/dL 70-110 H Lab Interpretation (test code = Abnormal 38788-1) [facility] GLUCOSE (AUTOMATED)2023-03-25 05:25:51 Test Item Value Reference Range Interpretation Comments POCT GLU (test code = 5281490411) 152 mg/dL 70-110 H Lab Interpretation (test code = Abnormal 68608-7) [facility] GLUCOSE (AUTOMATED)2023-03-25 00:41:13 Test Item Value Reference Range Interpretation Comments POCT GLU (test code = 4448207154) 124 mg/dL 70-110 H Lab Interpretation (test code = Abnormal 72979-9) [facility] GLUCOSE (AUTOMATED)2023-03-25 00:41:13 Test Item Value Reference Range Interpretation Comments POCT GLU (test code = 7984266387) 124 mg/dL 70-110 H Lab Interpretation (test code = Abnormal 34024-5) [facility] GLUCOSE (AUTOMATED)2023-03-24 21:46:06 Test Item Value Reference Range Interpretation Comments POCT GLU (test code = 5379239733) 115 mg/dL 70-110 H Lab Interpretation (test code = Abnormal 95359-2) [facility] GLUCOSE (AUTOMATED)2023-03-24 21:46:06 Test Item Value Reference Range Interpretation Comments POCT GLU (test code = 2640821873) 115 mg/dL 70-110 H Lab Interpretation (test code = Abnormal 96724-6) [facility] GLUCOSE (AUTOMATED)2023-03-24 16:49:48 Test Item Value Reference Range Interpretation Comments POCT GLU (test code = 5542094084) 102 mg/dL 70-110 Lab Interpretation (test code = Normal 03285-3) [facility] GLUCOSE (AUTOMATED)2023-03-24 16:49:48 Test Item Value Reference Range Interpretation Comments POCT GLU (test code = 6583787412) 102 mg/dL 70-110 Lab Interpretation (test code = Normal 92728-3) [facility] GLUCOSE (AUTOMATED)2023-03-24 11:49:15 Test Item Value Reference Range Interpretation Comments POCT GLU (test code = 7375293705) 85 mg/dL 70-110 Lab Interpretation (test code = Normal 23931-4) [facility] GLUCOSE (AUTOMATED)2023-03-24 11:49:15 Test Item Value Reference Range Interpretation Comments POCT GLU (test code = 2322777822) 85 mg/dL 70-110 Lab Interpretation (test code = Normal 96387-4) [facility] METABOLIC PANEL (NA, K, CL, CO2, GLUCOSE, BUN, CREATININE, CA)2023-03-24 11:14:38 Test Item Value Reference Range Interpretation Comments NA (test code = 134 mmol/L 135-145 L 8601735547) K (test code = 4.0 mmol/L 3.5-5.0 7536623533) CL (test code = 98 mmol/L 98-108 9319503169) CO2 TOTAL (test code = 26 mmol/L 23-31 7737398356) AGAP (test code = 10 2-16 3519358095) BUN (test code = 42 mg/dL 7-23 H 5629714476) GLUCOSE (test code = 59 mg/dL 70-110 L 5205518898) CREATININE (test code = 3.75 mg/dL 0.60-1.25 H 0680428556) CALCIUM (test code = 8.4 mg/dL 8.6-10.6 L 9193691736) eGFR (test code = 16.5 mL/min/1.73m2 4433150932) MIKAYLA (test code = MIKAYLA) Association of Glomerular Filtration Rate (GFR) and Staging of Kidney Disease* + --+ --+ ------+| GFR (mL/min/1.73 m2) ?| With Kidney Damage ?| ?Without Kidney Damage+ --------+ --------+ +| ?>90 ?| ?Stage one ?| ? Normal ?+ ---+ ---+ -------+| ?60-89 ?| ?Stage two ?| ? Decreased GFR ? + --+ --+ ------+| ?30-59 ?| ?Stage three ?| ? Stage three ? + --+ --+ ------+| ?15-29 ?| ?Stage four ? | ? Stage four ?+ ---+ ---+ -------+| ?<15 (or dialysis) ? ?| ?Stage five ? | ? Stage five ?+ ---+ ---+ -------+ *Each stage assumes the associated GFR level has been in effect for at least three months. ?Stages 1 to 5, with or without kidney disease, indicate chronic kidney disease. Notes: Determination of stages one and two (with eGFR >59mL/min/1.73 m2) requires estimation of kidney damage for at least three months as defined by structural or functional abnormalities of the kidney, manifested by either:Pathological abnormalities or Markers of kidney damage (including abnormalities in the composition of the blood or urine or abnormalities in imaging tests). Lab Interpretation Abnormal (test code = 34365-9) [facility]38 Test Item Value Reference Range Interpretation Comments MAGNESIUM (test code = 5559275051) 1.6 mg/dL 1.7-2.4 L Lab Interpretation (test code = Abnormal 52804-1) [facility] (NA, K, CL, CO2, GLUCOSE, BUN, CREATININE, CA)2023-03-24 11:14:38 Test Item Value Reference Range Interpretation Comments NA (test code = 134 mmol/L 135-145 L 1089740726) K (test code = 4.0 mmol/L 3.5-5.0 0929334489) CL (test code = 98 mmol/L 98-108 8043186065) CO2 TOTAL (test code = 26 mmol/L 23-31 1100838857) AGAP (test code = 10 2-16 8359583775) BUN (test code = 42 mg/dL 7-23 H 5115555378) GLUCOSE (test code = 59 mg/dL 70-110 L 9647782999) CREATININE (test code = 3.75 mg/dL 0.60-1.25 H 2700261511) CALCIUM (test code = 8.4 mg/dL 8.6-10.6 L 5204641856) eGFR (test code = 16.5 mL/min/1.73m2 4154484660) MIKAYLA (test code = MIKAYLA) Association of Glomerular Filtration Rate (GFR) and Staging of Kidney Disease* + --+ --+ ------+| GFR (mL/min/1.73 m2) ?| With Kidney Damage ?| ?Without Kidney Damage+ --------+ --------+ +| ?>90 ?| ?Stage one ?| ? Normal ?+ ---+ ---+ -------+| ?60-89 ?| ?Stage two ?| ? Decreased GFR ? + --+ --+ ------+| ?30-59 ?| ?Stage three ?| ? Stage three ? + --+ --+ ------+| ?15-29 ?| ?Stage four ? | ? Stage four ?+ ---+ ---+ -------+| ?<15 (or dialysis) ? ?| ?Stage five ? | ? Stage five ?+ ---+ ---+ -------+ *Each stage assumes the associated GFR level has been in effect for at least three months. ?Stages 1 to 5, with or without kidney disease, indicate chronic kidney disease. Notes: Determination of stages one and two (with eGFR >59mL/min/1.73 m2) requires estimation of kidney damage for at least three months as defined by structural or functional abnormalities of the kidney, manifested by either:Pathological abnormalities or Markers of kidney damage (including abnormalities in the composition of the blood or urine or abnormalities in imaging tests). Lab Interpretation Abnormal (test code = 81470-6) [facility]:14:38 Test Item Value Reference Range Interpretation Comments MAGNESIUM (test code = 1994930182) 1.6 mg/dL 1.7-2.4 L Lab Interpretation (test code = Abnormal 08403-1) [facility] 11:09:34 Test Item Value Reference Range Interpretation Comments POCT GLU (test code = 0640530761) 69 mg/dL 70-110 L Lab Interpretation (test code = Abnormal 72930-6) [facility] 11:09:34 Test Item Value Reference Range Interpretation Comments POCT GLU (test code = 4515086748) 69 mg/dL 70-110 L Lab Interpretation (test code = Abnormal 96243-1) [facility] WITH [id number] 10:46:55 Test Item Value Reference Range Interpretation Comments WBC (test code = 9.09 See_Comment [Automated 6690-2) message] The sy stem which generated this result transmitted reference range : 4.20 - 10.70 10*3/?L. The reference range was not used to interpret this result as normal/abnormal . RBC (test code = 2.59 See_Comment L [Automated 789-8) message] The sy stem which generated this result transmitted reference range : 4.26 - 5.52 10*6/?L. The reference range was not used to interpret this result as normal/abnormal . HGB (test code = 7.1 g/dL 12.2-16.4 L 718-7) HCT (test code = 23.2 % 38.4-49.3 L 4544-3) MCV (test code = 89.6 fL 81.7-95.6 787-2) MCH (test code = 27.4 pg 26.1-32.7 785-6) MCHC (test code = 30.6 g/dL 31.2-35.0 L 786-4) RDW-SD (test code = 59.3 fL 38.5-51.6 H 57403-7) RDW-CV (test code = 18.3 % 12.1-15.4 H 788-0) PLT (test code = 129 See_Comment L [Automated 777-3) message] The sy stem which generated this result transmitted reference range : 150 - 328 10*3/ ?L. The reference r kyra was not used to interpret this result as normal/abnormal . MPV (test code = 11.8 fL 9.8-13.0 12464-4) NRBC/100 WBC (test 0.0 See_Comment [Automat ed code = 2131173047) message] The system which generated this result transmitted reference range : 0.0 - 10.0 /100 WBCs. The refer ence range was not u sed to interpret th is result as normal/abnormal . NRBC x10^3 (test code See_Comment [Auto mated = 0095557516) message] The s ystem which generated this result transmitted reference range : 10*3/?L. The reference range was not used to interpret this result as normal/abnormal . GRAN MAT (NEUT) % 75.8 % (test code = 770-8) IMM GRAN % (test code 0.60 % = 5094584149) LYMPH % (test code = 11.2 % 736-9) MONO % (test code = 6.9 % 5905-5) EOS % (test code = 5.2 % 713-8) BASO % (test code = 0.3 % 706-2) GRAN MAT x10^3(ANC) 6.89 10*3/uL 1.99-6.95 (test code = 1742782925) IMM GRAN x10^3 (test 0.05 10*3/uL 0.00-0.06 code = 1260028156) LYMPH x10^3 (test code 1.02 10*3/uL 1.09-3.23 L = 731-0) MONO x10^3 (test code 0.63 10*3/uL 0.36-1.02 = 742-7) EOS x10^3 (test code = 0.47 10*3/uL 0.06-0.53 711-2) BASO x10^3 (test code 0.03 10*3/uL 0.01-0.09 = 704-7) Lab Interpretation Abnormal (test code = 56597-4) [facility] WITH [id number] 10:46:55 Test Item Value Reference Range Interpretation Comments WBC (test code = 9.09 See_Comment [Automated 5190-2) message] The sy stem which generated this result transmitted reference range : 4.20 - 10.70 10*3/?L. The reference range was not used to interpret this result as normal/abnormal . RBC (test code = 2.59 See_Comment L [Automated 789-8) message] The sy stem which generated this result transmitted reference range : 4.26 - 5.52 10*6/?L. The reference range was not used to interpret this result as normal/abnormal . HGB (test code = 7.1 g/dL 12.2-16.4 L 718-7) HCT (test code = 23.2 % 38.4-49.3 L 4544-3) MCV (test code = 89.6 fL 81.7-95.6 787-2) MCH (test code = 27.4 pg 26.1-32.7 785-6) MCHC (test code = 30.6 g/dL 31.2-35.0 L 786-4) RDW-SD (test code = 59.3 fL 38.5-51.6 H 88043-8) RDW-CV (test code = 18.3 % 12.1-15.4 H 788-0) PLT (test code = 129 See_Comment L [Automated 777-3) message] The sy stem which generated this result transmitted reference range : 150 - 328 10*3/ ?L. The reference r kyra was not used to interpret this result as normal/abnormal . MPV (test code = 11.8 fL 9.8-13.0 38638-0) NRBC/100 WBC (test 0.0 See_Comment [Automat ed code = 2019295910) message] The system which generated this result transmitted reference range : 0.0 - 10.0 /100 WBCs. The refer ence range was not u sed to interpret th is result as normal/abnormal . NRBC x10^3 (test code See_Comment [Auto mated = 7865557989) message] The s ystem which generated this result transmitted reference range : 10*3/?L. The reference range was not used to interpret this result as normal/abnormal . GRAN MAT (NEUT) % 75.8 % (test code = 770-8) IMM GRAN % (test code 0.60 % = 3847448137) LYMPH % (test code = 11.2 % 736-9) MONO % (test code = 6.9 % 5905-5) EOS % (test code = 5.2 % 713-8) BASO % (test code = 0.3 % 706-2) GRAN MAT x10^3(ANC) 6.89 10*3/uL 1.99-6.95 (test code = 3920181502) IMM GRAN x10^3 (test 0.05 10*3/uL 0.00-0.06 code = 6218655865) LYMPH x10^3 (test code 1.02 10*3/uL 1.09-3.23 L = 731-0) MONO x10^3 (test code 0.63 10*3/uL 0.36-1.02 = 742-7) EOS x10^3 (test code = 0.47 10*3/uL 0.06-0.53 711-2) BASO x10^3 (test code 0.03 10*3/uL 0.01-0.09 = 704-7) Lab Interpretation Abnormal (test code = 53095-8) [facility] GLUCOSE (AUTOMATED)2023-03-24 10:32:48 Test Item Value Reference Range Interpretation Comments POCT GLU (test code = 9017429904) 62 mg/dL 70-110 L Lab Interpretation (test code = Abnormal 01064-1) [facility] GLUCOSE (AUTOMATED)2023-03-24 10:32:48 Test Item Value Reference Range Interpretation Comments POCT GLU (test code = 5945069914) 62 mg/dL 70-110 L Lab Interpretation (test code = Abnormal 18791-1) [facility] GLUCOSE (AUTOMATED)2023-03-24 05:42:50 Test Item Value Reference Range Interpretation Comments POCT GLU (test code = 3299282798) 98 mg/dL 70-110 Lab Interpretation (test code = Normal 28927-5) [facility] GLUCOSE (AUTOMATED)2023-03-24 05:42:50 Test Item Value Reference Range Interpretation Comments POCT GLU (test code = 9260947649) 98 mg/dL 70-110 Lab Interpretation (test code = Normal 53779-2) [facility] GLUCOSE (AUTOMATED)2023-03-24 00:52:47 Test Item Value Reference Range Interpretation Comments POCT GLU (test code = 3256019271) 138 mg/dL 70-110 H Lab Interpretation (test code = Abnormal 49646-0) [facility] GLUCOSE (AUTOMATED)2023-03-24 00:52:47 Test Item Value Reference Range Interpretation Comments POCT GLU (test code = 5418079587) 138 mg/dL 70-110 H Lab Interpretation (test code = Abnormal 32265-3) [facility] GLUCOSE (AUTOMATED)2023-03-23 21:53:18 Test Item Value Reference Range Interpretation Comments POCT GLU (test code = 2014803783) 138 mg/dL 70-110 H Lab Interpretation (test code = Abnormal 16357-6) [facility] GLUCOSE (AUTOMATED)2023-03-23 21:53:18 Test Item Value Reference Range Interpretation Comments POCT GLU (test code = 5492473007) 138 mg/dL 70-110 H Lab Interpretation (test code = Abnormal 57543-6) [facility] Packed RBC (in units), 1 Units 2023-03-23 15:45:46 Test Item Value Reference Range Interpretation Comments Cross Match Result Compatible (test code = 4409) ISBT Blood Type Code 9500 (test code = 750177) Unit Blood Type (test O Neg code = 4410) Unit Number (test [id number] code = 4411) Blood Expiration Date & Time (test code = 932576) Status Information Issued (test code = 4412) Product Red Blood Cells Identification (test code = 4413) Product Code (test [id number] Performed at [facility] code = 4414) Laboratory Services - [facility] Blood [address] [address] Free: [phone] A No. [id number] [facility] Packed RBC (in units), 1 Units 2023-03-23 15:45:46 Test Item Value Reference Range Interpretation Comments Cross Match Result Compatible (test code = 4409) ISBT Blood Type Code 9500 (test code = 594227) Unit Blood Type (test O Neg code = 4410) Unit Number (test [id number] code = 4411) Blood Expiration Date & Time (test code = 366723) Status Information Issued (test code = 4412) Product Red Blood Cells Identification (test code = 4413) Product Code (test [id number] Performed at [facility] code = 4414) Laboratory Services - [facility] [address] [address] Free: [phone] A No. [id number] [facility] GLUCOSE (AUTOMATED)2023-03-23 13:14:47 Test Item Value Reference Range Interpretation Comments POCT GLU (test code = 0516444525) 103 mg/dL 70-110 Lab Interpretation (test code = Normal 42031-7) [facility] GLUCOSE (AUTOMATED)2023-03-23 13:14:47 Test Item Value Reference Range Interpretation Comments POCT GLU (test code = 3068048419) 103 mg/dL 70-110 Lab Interpretation (test code = Normal 63487-9) [facility] METABOLIC PANEL (NA, K, CL, CO2, GLUCOSE, BUN, CREATININE, CA)2023-03-23 11:27:17 Test Item Value Reference Range Interpretation Comments NA (test code = 134 mmol/L 135-145 L 9547622345) K (test code = 4.1 mmol/L 3.5-5.0 0026196130) CL (test code = 101 mmol/L 98-108 4998543183) CO2 TOTAL (test code = 26 mmol/L 23-31 6136310635) AGAP (test code = 7 2-16 3365494560) BUN (test code = 32 mg/dL 7-23 H 0924640727) GLUCOSE (test code = 166 mg/dL 70-110 H 4440900761) CREATININE (test code = 2.76 mg/dL 0.60-1.25 H 3691837356) CALCIUM (test code = 8.5 mg/dL 8.6-10.6 L 7783578931) eGFR (test code = 23.5 mL/min/1.73m2 9121479024) MIKAYLA (test code = MIKAYLA) Association of Glomerular Filtration Rate (GFR) and Staging of Kidney Disease* + --+ --+ ------+| GFR (mL/min/1.73 m2) ?| With Kidney Damage ?| ?Without Kidney Damage+ --------+ --------+ +| ?>90 ?| ?Stage one ?| ? Normal ?+ ---+ ---+ -------+| ?60-89 ?| ?Stage two ?| ? Decreased GFR ? + --+ --+ ------+| ?30-59 ?| ?Stage three ?| ? Stage three ? + --+ --+ ------+| ?15-29 ?| ?Stage four ? | ? Stage four ?+ ---+ ---+ -------+| ?<15 (or dialysis) ? ?| ?Stage five ? | ? Stage five ?+ ---+ ---+ -------+ *Each stage assumes the associated GFR level has been in effect for at least three months. ?Stages 1 to 5, with or without kidney disease, indicate chronic kidney disease. Notes: Determination of stages one and two (with eGFR >59mL/min/1.73 m2) requires estimation of kidney damage for at least three months as defined by structural or functional abnormalities of the kidney, manifested by either:Pathological abnormalities or Markers of kidney damage (including abnormalities in the composition of the blood or urine or abnormalities in imaging tests). Lab Interpretation Abnormal (test code = 23123-2) [facility] 11:27:17 Test Item Value Reference Range Interpretation Comments MAGNESIUM (test code = 1892688972) 1.7 mg/dL 1.7-2.4 Lab Interpretation (test code = Normal 50279-8) [facility] (NA, K, CL, CO2, GLUCOSE, BUN, CREATININE, CA)2023-03-23 11:27:17 Test Item Value Reference Range Interpretation Comments NA (test code = 134 mmol/L 135-145 L 3336594632) K (test code = 4.1 mmol/L 3.5-5.0 8030591173) CL (test code = 101 mmol/L 98-108 5184490929) CO2 TOTAL (test code = 26 mmol/L 23-31 2087323245) AGAP (test code = 7 2-16 2816262077) BUN (test code = 32 mg/dL 7-23 H 2766375193) GLUCOSE (test code = 166 mg/dL 70-110 H 5915011476) CREATININE (test code = 2.76 mg/dL 0.60-1.25 H 1427967406) CALCIUM (test code = 8.5 mg/dL 8.6-10.6 L 9996604996) eGFR (test code = 23.5 mL/min/1.73m2 8744421015) MIKAYLA (test code = MIKAYLA) Association of Glomerular Filtration Rate (GFR) and Staging of Kidney Disease* + --+ --+ ------+| GFR (mL/min/1.73 m2) ?| With Kidney Damage ?| ?Without Kidney Damage+ --------+ --------+ +| ?>90 ?| ?Stage one ?| ? Normal ?+ ---+ ---+ -------+| ?60-89 ?| ?Stage two ?| ? Decreased GFR ? + --+ --+ ------+| ?30-59 ?| ?Stage three ?| ? Stage three ? + --+ --+ ------+| ?15-29 ?| ?Stage four ? | ? Stage four ?+ ---+ ---+ -------+| ?<15 (or dialysis) ? ?| ?Stage five ? | ? Stage five ?+ ---+ ---+ -------+ *Each stage assumes the associated GFR level has been in effect for at least three months. ?Stages 1 to 5, with or without kidney disease, indicate chronic kidney disease. Notes: Determination of stages one and two (with eGFR >59mL/min/1.73 m2) requires estimation of kidney damage for at least three months as defined by structural or functional abnormalities of the kidney, manifested by either:Pathological abnormalities or Markers of kidney damage (including abnormalities in the composition of the blood or urine or abnormalities in imaging tests). Lab Interpretation Abnormal (test code = 39115-7) [facility] 11:27:17 Test Item Value Reference Range Interpretation Comments MAGNESIUM (test code = 7313182726) 1.7 mg/dL 1.7-2.4 Lab Interpretation (test code = Normal 44334-7) [facility] WITH [id number] 10:40:50 Test Item Value Reference Range Interpretation Comments WBC (test code = 10.26 See_Comment [Automated 6590-2) message] The sy stem which generated this result transmitted reference range : 4.20 - 10.70 10*3/?L. The reference range was not used to interpret this result as normal/abnormal . RBC (test code = 2.34 See_Comment L [Automated 789-8) message] The sy stem which generated this result transmitted reference range : 4.26 - 5.52 10*6/?L. The reference range was not used to interpret this result as normal/abnormal . HGB (test code = 6.4 g/dL 12.2-16.4 L 718-7) HCT (test code = 21.3 % 38.4-49.3 L 4544-3) MCV (test code = 91.0 fL 81.7-95.6 787-2) MCH (test code = 27.4 pg 26.1-32.7 785-6) MCHC (test code = 30.0 g/dL 31.2-35.0 L 786-4) RDW-SD (test code = 63.3 fL 38.5-51.6 H 05723-3) RDW-CV (test code = 19.2 % 12.1-15.4 H 788-0) PLT (test code = 116 See_Comment L [Automated 777-3) message] The sy stem which generated this result transmitted reference range : 150 - 328 10*3/ ?L. The reference r kyra was not used to interpret this result as normal/abnormal . MPV (test code = 12.0 fL 9.8-13.0 40217-4) NRBC/100 WBC (test 0.0 See_Comment [Automat ed code = 0992324595) message] The system which generated this result transmitted reference range : 0.0 - 10.0 /100 WBCs. The refer ence range was not u sed to interpret th is result as normal/abnormal . NRBC x10^3 (test code See_Comment [Auto mated = 4861597040) message] The s ystem which generated this result transmitted reference range : 10*3/?L. The reference range was not used to interpret this result as normal/abnormal . GRAN MAT (NEUT) % 81.4 % (test code = 770-8) IMM GRAN % (test code 0.40 % = 4399395547) LYMPH % (test code = 9.8 % 736-9) MONO % (test code = 4.1 % 5905-5) EOS % (test code = 4.1 % 713-8) BASO % (test code = 0.2 % 706-2) GRAN MAT x10^3(ANC) 8.35 10*3/uL 1.99-6.95 H (test code = 1568377602) IMM GRAN x10^3 (test 0.04 10*3/uL 0.00-0.06 code = 8242989352) LYMPH x10^3 (test code 1.01 10*3/uL 1.09-3.23 L = 731-0) MONO x10^3 (test code 0.42 10*3/uL 0.36-1.02 = 742-7) EOS x10^3 (test code = 0.42 10*3/uL 0.06-0.53 711-2) BASO x10^3 (test code 0.01-0.09 = 704-7) Lab Interpretation Abnormal (test code = 18232-8) [facility] WITH [id number] 10:40:50 Test Item Value Reference Range Interpretation Comments WBC (test code = 10.26 See_Comment [Automated 6690-2) message] The sy stem which generated this result transmitted reference range : 4.20 - 10.70 10*3/?L. The reference range was not used to interpret this result as normal/abnormal . RBC (test code = 2.34 See_Comment L [Automated 789-8) message] The sy stem which generated this result transmitted reference range : 4.26 - 5.52 10*6/?L. The reference range was not used to interpret this result as normal/abnormal . HGB (test code = 6.4 g/dL 12.2-16.4 L 718-7) HCT (test code = 21.3 % 38.4-49.3 L 4544-3) MCV (test code = 91.0 fL 81.7-95.6 787-2) MCH (test code = 27.4 pg 26.1-32.7 785-6) MCHC (test code = 30.0 g/dL 31.2-35.0 L 786-4) RDW-SD (test code = 63.3 fL 38.5-51.6 H 61855-5) RDW-CV (test code = 19.2 % 12.1-15.4 H 788-0) PLT (test code = 116 See_Comment L [Automated 777-3) message] The sy stem which generated this result transmitted reference range : 150 - 328 10*3/ ?L. The reference r kyra was not used to interpret this result as normal/abnormal . MPV (test code = 12.0 fL 9.8-13.0 10003-1) NRBC/100 WBC (test 0.0 See_Comment [Automat ed code = 8020232818) message] The system which generated this result transmitted reference range : 0.0 - 10.0 /100 WBCs. The refer ence range was not u sed to interpret th is result as normal/abnormal . NRBC x10^3 (test code See_Comment [Auto mated = 3699560496) message] The s ystem which generated this result transmitted reference range : 10*3/?L. The reference range was not used to interpret this result as normal/abnormal . GRAN MAT (NEUT) % 81.4 % (test code = 770-8) IMM GRAN % (test code 0.40 % = 6773966855) LYMPH % (test code = 9.8 % 736-9) MONO % (test code = 4.1 % 5905-5) EOS % (test code = 4.1 % 713-8) BASO % (test code = 0.2 % 706-2) GRAN MAT x10^3(ANC) 8.35 10*3/uL 1.99-6.95 H (test code = 5977993742) IMM GRAN x10^3 (test 0.04 10*3/uL 0.00-0.06 code = 5829437293) LYMPH x10^3 (test code 1.01 10*3/uL 1.09-3.23 L = 731-0) MONO x10^3 (test code 0.42 10*3/uL 0.36-1.02 = 742-7) EOS x10^3 (test code = 0.42 10*3/uL 0.06-0.53 711-2) BASO x10^3 (test code 0.01-0.09 = 704-7) Lab Interpretation Abnormal (test code = 68904-1) [facility] [id number] 10:21:00 Test Item Value Reference Range Interpretation Comments ABO & RH (test code = 20) O POSITIVE IAT (test code = 1185) Negative [facility] - ONCE [id number] 10:21:00 Test Item Value Reference Range Interpretation Comments ABO & RH (test code = 20) O POSITIVE IAT (test code = 1185) [facility] 10:13:37 Test Item Value Reference Range Interpretation Comments POCT GLU (test code = 7653486814) 184 mg/dL 70-110 H Lab Interpretation (test code = Abnormal 01107-4) [facility] 10:13:37 Test Item Value Reference Range Interpretation Comments POCT GLU (test code = 1171814243) 184 mg/dL 70-110 H Lab Interpretation (test code = Abnormal 67711-3) [facility] 05:56:49 Test Item Value Reference Range Interpretation Comments POCT GLU (test code = 9880712684) 153 mg/dL 70-110 H Lab Interpretation (test code = Abnormal 82125-5) [facility] 05:56:49 Test Item Value Reference Range Interpretation Comments POCT GLU (test code = 7732169864) 153 mg/dL 70-110 H Lab Interpretation (test code = Abnormal 26386-3) [facility] 01:32:51 Test Item Value Reference Range Interpretation Comments POCT GLU (test code = 6732511897) 101 mg/dL 70-110 Lab Interpretation (test code = Normal 58498-5) [facility] 01:32:51 Test Item Value Reference Range Interpretation Comments POCT GLU (test code = 2748450893) 101 mg/dL 70-110 Lab Interpretation (test code = Normal 02915-3) [facility] 23:27:43 Test Item Value Reference Range Interpretation Comments POCT GLU (test code = 2591132321) 120 mg/dL 70-110 H Lab Interpretation (test code = Abnormal 11017-4) [facility] 23:27:43 Test Item Value Reference Range Interpretation Comments POCT GLU (test code = 0847353626) 120 mg/dL 70-110 H Lab Interpretation (test code = Abnormal 28645-6) [facility] METABOLIC PANEL (NA, K, CL, CO2, GLUCOSE, BUN, CREATININE, CA)2023-03-22 18:52:19 Test Item Value Reference Range Interpretation Comments NA (test code = 135 mmol/L 135-145 6704139472) K (test code = 3.9 mmol/L 3.5-5.0 3996041513) CL (test code = 98 mmol/L 98-108 5082362679) CO2 TOTAL (test code = 28 mmol/L 23-31 6243907341) AGAP (test code = 9 2-16 3816786969) BUN (test code = 56 mg/dL 7-23 H 2575502168) GLUCOSE (test code = 76 mg/dL 70-110 5747369800) CREATININE (test code = 4.58 mg/dL 0.60-1.25 H 2860152789) CALCIUM (test code = 8.1 mg/dL 8.6-10.6 L 8963204229) eGFR (test code = 13.1 mL/min/1.73m2 8568203084) MIKAYLA (test code = MIKAYLA) Association of Glomerular Filtration Rate (GFR) and Staging of Kidney Disease* + --+ --+ ------+| GFR (mL/min/1.73 m2) ?| With Kidney Damage ?| ?Without Kidney Damage+ --------+ --------+ +| ?>90 ?| ?Stage one ?| ? Normal ?+ ---+ ---+ -------+| ?60-89 ?| ?Stage two ?| ? Decreased GFR ? + --+ --+ ------+| ?30-59 ?| ?Stage three ?| ? Stage three ? + --+ --+ ------+| ?15-29 ?| ?Stage four ? | ? Stage four ?+ ---+ ---+ -------+| ?<15 (or dialysis) ? ?| ?Stage five ? | ? Stage five ?+ ---+ ---+ -------+ *Each stage assumes the associated GFR level has been in effect for at least three months. ?Stages 1 to 5, with or without kidney disease, indicate chronic kidney disease. Notes: Determination of stages one and two (with eGFR >59mL/min/1.73 m2) requires estimation of kidney damage for at least three months as defined by structural or functional abnormalities of the kidney, manifested by either:Pathological abnormalities or Markers of kidney damage (including abnormalities in the composition of the blood or urine or abnormalities in imaging tests). Lab Interpretation Abnormal (test code = 36614-6) [facility] METABOLIC PANEL (NA, K, CL, CO2, GLUCOSE, BUN, CREATININE, CA)2023-03-22 18:52:19 Test Item Value Reference Range Interpretation Comments NA (test code = 135 mmol/L 135-145 8470205864) K (test code = 3.9 mmol/L 3.5-5.0 4746489298) CL (test code = 98 mmol/L 98-108 6123633579) CO2 TOTAL (test code = 28 mmol/L 23-31 8104508084) AGAP (test code = 9 2-16 3945573524) BUN (test code = 56 mg/dL 7-23 H 2686771751) GLUCOSE (test code = 76 mg/dL 70-110 0614364578) CREATININE (test code = 4.58 mg/dL 0.60-1.25 H 7720248843) CALCIUM (test code = 8.1 mg/dL 8.6-10.6 L 3593006023) eGFR (test code = 13.1 mL/min/1.73m2 6386415142) MIKAYLA (test code = MIKAYLA) Association of Glomerular Filtration Rate (GFR) and Staging of Kidney Disease* + --+ --+ ------+| GFR (mL/min/1.73 m2) ?| With Kidney Damage ?| ?Without Kidney Damage+ --------+ --------+ +| ?>90 ?| ?Stage one ?| ? Normal ?+ ---+ ---+ -------+| ?60-89 ?| ?Stage two ?| ? Decreased GFR ? + --+ --+ ------+| ?30-59 ?| ?Stage three ?| ? Stage three ? + --+ --+ ------+| ?15-29 ?| ?Stage four ? | ? Stage four ?+ ---+ ---+ -------+| ?<15 (or dialysis) ? ?| ?Stage five ? | ? Stage five ?+ ---+ ---+ -------+ *Each stage assumes the associated GFR level has been in effect for at least three months. ?Stages 1 to 5, with or without kidney disease, indicate chronic kidney disease. Notes: Determination of stages one and two (with eGFR >59mL/min/1.73 m2) requires estimation of kidney damage for at least three months as defined by structural or functional abnormalities of the kidney, manifested by either:Pathological abnormalities or Markers of kidney damage (including abnormalities in the composition of the blood or urine or abnormalities in imaging tests). Lab Interpretation Abnormal (test code = 08634-7) [facility] GLUCOSE (AUTOMATED)2023-03-22 18:15:41 Test Item Value Reference Range Interpretation Comments POCT GLU (test code = 0351227042) 89 mg/dL 70-110 Lab Interpretation (test code = Normal 67703-3) [facility] GLUCOSE (AUTOMATED)2023-03-22 18:15:41 Test Item Value Reference Range Interpretation Comments POCT GLU (test code = 1041665180) 89 mg/dL 70-110 Lab Interpretation (test code = Normal 16603-3) [facility] GLUCOSE (AUTOMATED)2023-03-22 13:40:33 Test Item Value Reference Range Interpretation Comments POCT GLU (test code = 1630176329) 112 mg/dL 70-110 H Lab Interpretation (test code = Abnormal 38007-9) [facility] GLUCOSE (AUTOMATED)2023-03-22 13:40:33 Test Item Value Reference Range Interpretation Comments POCT GLU (test code = 1414917325) 112 mg/dL 70-110 H Lab Interpretation (test code = Abnormal 80252-4) [facility] GLUCOSE (AUTOMATED)2023-03-22 08:06:47 Test Item Value Reference Range Interpretation Comments POCT GLU (test code = 5009583796) 77 mg/dL 70-110 Lab Interpretation (test code = Normal 83723-8) [facility] GLUCOSE (AUTOMATED)2023-03-22 08:06:47 Test Item Value Reference Range Interpretation Comments POCT GLU (test code = 8652927170) 77 mg/dL 70-110 Lab Interpretation (test code = Normal 45763-0) [facility] GLUCOSE (AUTOMATED)2023-03-22 05:19:43 Test Item Value Reference Range Interpretation Comments POCT GLU (test code = 9271214697) 84 mg/dL 70-110 Lab Interpretation (test code = Normal 13150-3) [facility] GLUCOSE (AUTOMATED)2023-03-22 05:19:43 Test Item Value Reference Range Interpretation Comments POCT GLU (test code = 9265545212) 84 mg/dL 70-110 Lab Interpretation (test code = Normal 71564-9) [facility] GLUCOSE (AUTOMATED)2023-03-22 02:03:38 Test Item Value Reference Range Interpretation Comments POCT GLU (test code = 1469629116) 112 mg/dL 70-110 H Lab Interpretation (test code = Abnormal 66017-9) [facility] GLUCOSE (AUTOMATED)2023-03-22 02:03:38 Test Item Value Reference Range Interpretation Comments POCT GLU (test code = 2799774099) 112 mg/dL 70-110 H Lab Interpretation (test code = Abnormal 67615-5) [facility] GLUCOSE (AUTOMATED)2023-03-21 21:39:47 Test Item Value Reference Range Interpretation Comments POCT GLU (test code = 0370825332) 161 mg/dL 70-110 H Lab Interpretation (test code = Abnormal 30352-9) [facility] 21:39:47 Test Item Value Reference Range Interpretation Comments POCT GLU (test code = 9251065804) 161 mg/dL 70-110 H Lab Interpretation (test code = Abnormal 47751-2) [facility] GLUCOSE (AUTOMATED)2023-03-21 17:34:55 Test Item Value Reference Range Interpretation Comments POCT GLU (test code = 1259905696) 138 mg/dL 70-110 H Lab Interpretation (test code = Abnormal 89115-4) [facility] GLUCOSE (AUTOMATED)2023-03-21 17:34:55 Test Item Value Reference Range Interpretation Comments POCT GLU (test code = 3171782741) 138 mg/dL 70-110 H Lab Interpretation (test code = Abnormal 46114-5) [facility] GLUCOSE (AUTOMATED)2023-03-21 15:12:42 Test Item Value Reference Range Interpretation Comments POCT GLU (test code = 8452751286) 128 mg/dL 70-110 H Lab Interpretation (test code = Abnormal 67304-6) [facility] 15:12:42 Test Item Value Reference Range Interpretation Comments POCT GLU (test code = 1355276143) 128 mg/dL 70-110 H Lab Interpretation (test code = Abnormal 80389-3) [facility] GLUCOSE (AUTOMATED)2023-03-21 12:50:13 Test Item Value Reference Range Interpretation Comments POCT GLU (test code = 3879539239) 84 mg/dL 70-110 Lab Interpretation (test code = Normal 76959-2) [facility] GLUCOSE (AUTOMATED)2023-03-21 12:50:13 Test Item Value Reference Range Interpretation Comments POCT GLU (test code = 8510038690) 84 mg/dL 70-110 Lab Interpretation (test code = Normal 43076-6) [facility] GLUCOSE (AUTOMATED)2023-03-21 09:59:12 Test Item Value Reference Range Interpretation Comments POCT GLU (test code = 3671347561) 122 mg/dL 70-110 H Lab Interpretation (test code = Abnormal 53758-8) [facility] 09:59:12 Test Item Value Reference Range Interpretation Comments POCT GLU (test code = 8070160794) 122 mg/dL 70-110 H Lab Interpretation (test code = Abnormal 49607-8) [facility] 05:26:09 Test Item Value Reference Range Interpretation Comments POCT GLU (test code = 9180531872) 94 mg/dL 70-110 Lab Interpretation (test code = Normal 57703-4) [facility] GLUCOSE (AUTOMATED)2023-03-21 05:26:09 Test Item Value Reference Range Interpretation Comments POCT GLU (test code = 6018978890) 94 mg/dL 70-110 Lab Interpretation (test code = Normal 14989-5) [facility] GLUCOSE (AUTOMATED)2023-03-21 01:35:28 Test Item Value Reference Range Interpretation Comments POCT GLU (test code = 8001275443) 132 mg/dL 70-110 H Lab Interpretation (test code = Abnormal 55260-0) [facility] GLUCOSE (AUTOMATED)2023-03-21 01:35:28 Test Item Value Reference Range Interpretation Comments POCT GLU (test code = 8871639382) 132 mg/dL 70-110 H Lab Interpretation (test code = Abnormal 25180-0) [facility] GLUCOSE (AUTOMATED)2023-03-20 22:11:50 Test Item Value Reference Range Interpretation Comments POCT GLU (test code = 5607202425) 118 mg/dL 70-110 H Lab Interpretation (test code = Abnormal 63740-3) [facility] GLUCOSE (AUTOMATED)2023-03-20 22:11:50 Test Item Value Reference Range Interpretation Comments POCT GLU (test code = 1835545341) 118 mg/dL 70-110 H Lab Interpretation (test code = Abnormal 40556-4) [facility] GLUCOSE (AUTOMATED)2023-03-20 17:58:35 Test Item Value Reference Range Interpretation Comments POCT GLU (test code = 0678865967) 105 mg/dL 70-110 Lab Interpretation (test code = Normal 83813-6) [facility] GLUCOSE (AUTOMATED)2023-03-20 17:58:35 Test Item Value Reference Range Interpretation Comments POCT GLU (test code = 1099309977) 105 mg/dL 70-110 Lab Interpretation (test code = Normal 06083-9) [facility] GLUCOSE (AUTOMATED)2023-03-20 12:53:40 Test Item Value Reference Range Interpretation Comments POCT GLU (test code = 7920906698) 156 mg/dL 70-110 H Lab Interpretation (test code = Abnormal 63030-5) [facility] GLUCOSE (AUTOMATED)2023-03-20 12:53:40 Test Item Value Reference Range Interpretation Comments POCT GLU (test code = 3697657030) 156 mg/dL 70-110 H Lab Interpretation (test code = Abnormal 32056-5) [facility] GLUCOSE (AUTOMATED)2023-03-20 12:53:40 Test Item Value Reference Range Interpretation Comments POCT GLU (test code = 4612045382) 156 mg/dL 70-110 H Lab Interpretation (test code = Abnormal 02170-4) [facility] GLUCOSE (AUTOMATED)2023-03-20 09:01:26 Test Item Value Reference Range Interpretation Comments POCT GLU (test code = 5718645606) 155 mg/dL 70-110 H Lab Interpretation (test code = Abnormal 55613-0) [facility] GLUCOSE (AUTOMATED)2023-03-20 09:01:26 Test Item Value Reference Range Interpretation Comments POCT GLU (test code = 3398010190) 155 mg/dL 70-110 H Lab Interpretation (test code = Abnormal 75018-3) [facility] GLUCOSE (AUTOMATED)2023-03-20 05:06:08 Test Item Value Reference Range Interpretation Comments POCT GLU (test code = 0898825911) 135 mg/dL 70-110 H Lab Interpretation (test code = Abnormal 95689-4) [facility] GLUCOSE (AUTOMATED)2023-03-20 05:06:08 Test Item Value Reference Range Interpretation Comments POCT GLU (test code = 1395100981) 135 mg/dL 70-110 H Lab Interpretation (test code = Abnormal 60713-7) [facility] GLUCOSE (AUTOMATED)2023-03-19 16:53:06 Test Item Value Reference Range Interpretation Comments POCT GLU (test code = 4109311885) 142 mg/dL 70-110 H Lab Interpretation (test code = Abnormal 43764-8) [facility] GLUCOSE (AUTOMATED)2023-03-19 16:53:06 Test Item Value Reference Range Interpretation Comments POCT GLU (test code = 5968955524) 142 mg/dL 70-110 H Lab Interpretation (test code = Abnormal 63203-0) [facility] GLUCOSE (AUTOMATED)2023-03-19 14:32:54 Test Item Value Reference Range Interpretation Comments POCT GLU (test code = 4586768333) 96 mg/dL 70-110 Lab Interpretation (test code = Normal 94848-6) [facility] GLUCOSE (AUTOMATED)2023-03-19 14:32:54 Test Item Value Reference Range Interpretation Comments POCT GLU (test code = 7589848941) 96 mg/dL 70-110 Lab Interpretation (test code = Normal 93967-4) [facility] GLUCOSE (AUTOMATED)2023-03-19 09:33:09 Test Item Value Reference Range Interpretation Comments POCT GLU (test code = 4211936647) 170 mg/dL 70-110 H Lab Interpretation (test code = Abnormal 87069-9) [facility] GLUCOSE (AUTOMATED)2023-03-19 09:33:09 Test Item Value Reference Range Interpretation Comments POCT GLU (test code = 8468680981) 170 mg/dL 70-110 H Lab Interpretation (test code = Abnormal 35398-7) [facility] GLUCOSE (AUTOMATED)2023-03-19 01:39:45 Test Item Value Reference Range Interpretation Comments POCT GLU (test code = 8437817158) 114 mg/dL 70-110 H Lab Interpretation (test code = Abnormal 73227-2) [facility] GLUCOSE (AUTOMATED)2023-03-19 01:39:45 Test Item Value Reference Range Interpretation Comments POCT GLU (test code = 2047770403) 114 mg/dL 70-110 H Lab Interpretation (test code = Abnormal 90311-9) [facility] GLUCOSE (AUTOMATED)2023-03-18 13:34:41 Test Item Value Reference Range Interpretation Comments POCT GLU (test code = 7527381918) 70 mg/dL 70-110 Lab Interpretation (test code = Normal 69260-2) [facility] GLUCOSE (AUTOMATED)2023-03-18 13:34:41 Test Item Value Reference Range Interpretation Comments POCT GLU (test code = 2177363182) 70 mg/dL 70-110 Lab Interpretation (test code = Normal 03427-2) [facility] METABOLIC PANEL (NA, K, CL, CO2, GLUCOSE, BUN, CREATININE, CA)2023-03-18 10:13:56 Test Item Value Reference Range Interpretation Comments NA (test code = 132 mmol/L 135-145 L 5030178492) K (test code = 4.1 mmol/L 3.5-5.0 8262467950) CL (test code = 95 mmol/L 98-108 L 7316512774) CO2 TOTAL (test code = 23 mmol/L 23-31 3434725061) AGAP (test code = 14 2-16 0853384558) BUN (test code = 70 mg/dL 7-23 H 7729857458) GLUCOSE (test code = 165 mg/dL 70-110 H 6172850781) CREATININE (test code = 5.56 mg/dL 0.60-1.25 H 8793520447) CALCIUM (test code = 7.7 mg/dL 8.6-10.6 L 8808959985) eGFR (test code = 10.5 mL/min/1.73m2 0368995636) MIKAYLA (test code = MIKAYLA) Association of Glomerular Filtration Rate (GFR) and Staging of Kidney Disease* + --+ --+ ------+| GFR (mL/min/1.73 m2) ?| With Kidney Damage ?| ?Without Kidney Damage+ --------+ --------+ +| ?>90 ?| ?Stage one ?| ? Normal ?+ ---+ ---+ -------+| ?60-89 ?| ?Stage two ?| ? Decreased GFR ? + --+ --+ ------+| ?30-59 ?| ?Stage three ?| ? Stage three ? + --+ --+ ------+| ?15-29 ?| ?Stage four ? | ? Stage four ?+ ---+ ---+ -------+| ?<15 (or dialysis) ? ?| ?Stage five ? | ? Stage five ?+ ---+ ---+ -------+ *Each stage assumes the associated GFR level has been in effect for at least three months. ?Stages 1 to 5, with or without kidney disease, indicate chronic kidney disease. Notes: Determination of stages one and two (with eGFR >59mL/min/1.73 m2) requires estimation of kidney damage for at least three months as defined by structural or functional abnormalities of the kidney, manifested by either:Pathological abnormalities or Markers of kidney damage (including abnormalities in the composition of the blood or urine or abnormalities in imaging tests). Lab Interpretation Abnormal (test code = 07358-6) [facility] Test Item Value Reference Range Interpretation Comments MAGNESIUM (test code = 3414524195) 1.7 mg/dL 1.7-2.4 Lab Interpretation (test code = Normal 33627-7) [facility]:13:56 Test Item Value Reference Range Interpretation Comments PHOSPHORUS (test code = 8950783819) 5.2 mg/dL 2.5-5.0 H Lab Interpretation (test code = Abnormal 75391-5) [facility] (NA, K, CL, CO2, GLUCOSE, BUN, CREATININE, CA)2023-03-18 10:13:56 Test Item Value Reference Range Interpretation Comments NA (test code = 132 mmol/L 135-145 L 6817717335) K (test code = 4.1 mmol/L 3.5-5.0 4024997530) CL (test code = 95 mmol/L 98-108 L 5990701117) CO2 TOTAL (test code = 23 mmol/L 23-31 3421107726) AGAP (test code = 14 2-16 7306261464) BUN (test code = 70 mg/dL 7-23 H 8143902151) GLUCOSE (test code = 165 mg/dL 70-110 H 4739069903) CREATININE (test code = 5.56 mg/dL 0.60-1.25 H 4122480586) CALCIUM (test code = 7.7 mg/dL 8.6-10.6 L 0828101625) eGFR (test code = 10.5 mL/min/1.73m2 2897513558) MIKAYLA (test code = MIKAYLA) Association of Glomerular Filtration Rate (GFR) and Staging of Kidney Disease* + --+ --+ ------+| GFR (mL/min/1.73 m2) ?| With Kidney Damage ?| ?Without Kidney Damage+ --------+ --------+ +| ?>90 ?| ?Stage one ?| ? Normal ?+ ---+ ---+ -------+| ?60-89 ?| ?Stage two ?| ? Decreased GFR ? + --+ --+ ------+| ?30-59 ?| ?Stage three ?| ? Stage three ? + --+ --+ ------+| ?15-29 ?| ?Stage four ? | ? Stage four ?+ ---+ ---+ -------+| ?<15 (or dialysis) ? ?| ?Stage five ? | ? Stage five ?+ ---+ ---+ -------+ *Each stage assumes the associated GFR level has been in effect for at least three months. ?Stages 1 to 5, with or without kidney disease, indicate chronic kidney disease. Notes: Determination of stages one and two (with eGFR >59mL/min/1.73 m2) requires estimation of kidney damage for at least three months as defined by structural or functional abnormalities of the kidney, manifested by either:Pathological abnormalities or Markers of kidney damage (including abnormalities in the composition of the blood or urine or abnormalities in imaging tests). Lab Interpretation Abnormal (test code = 31895-8) [facility]:13:56 Test Item Value Reference Range Interpretation Comments MAGNESIUM (test code = 4345311405) 1.7 mg/dL 1.7-2.4 Lab Interpretation (test code = Normal 64239-7) [facility]56 Test Item Value Reference Range Interpretation Comments PHOSPHORUS (test code = 2048763909) 5.2 mg/dL 2.5-5.0 H Lab Interpretation (test code = Abnormal 99817-0) [facility] [id number] 10:01:38 Test Item Value Reference Range Interpretation Comments WBC (test code = 11.02 See_Comment H [Automated 9590-2) message] The sy stem which generated this result transmitted reference range : 4.20 - 10.70 10*3/?L. The reference range was not used to interpret this result as normal/abnormal . RBC (test code = 2.52 See_Comment L [Automated 393-8) message] The sy stem which generated this result transmitted reference range : 4.26 - 5.52 10*6/?L. The reference range was not used to interpret this result as normal/abnormal . HGB (test code = 6.9 g/dL 12.2-16.4 L 718-7) HCT (test code = 22.5 % 38.4-49.3 L 4544-3) MCV (test code = 89.3 fL 81.7-95.6 787-2) MCH (test code = 27.4 pg 26.1-32.7 785-6) MCHC (test code = 30.7 g/dL 31.2-35.0 L 786-4) RDW-SD (test code = 62.7 fL 38.5-51.6 H 79156-9) RDW-CV (test code = 19.3 % 12.1-15.4 H 788-0) PLT (test code = 150 See_Comment [Automated 777-3) message] The sy stem which generated this result transmitted reference range : 150 - 328 10*3/ ?L. The reference r kyra was not used to interpret this result as normal/abnormal . MPV (test code = 13.0 fL 9.8-13.0 14139-4) NRBC/100 WBC (test 0.0 See_Comment [Automat ed code = 8595155567) message] The system which generated this result transmitted reference range : 0.0 - 10.0 /100 WBCs. The refer ence range was not u sed to interpret th is result as normal/abnormal . NRBC x10^3 (test code See_Comment [Auto mated = 8121989363) message] The s ystem which generated this result transmitted reference range : 10*3/?L. The reference range was not used to interpret this result as normal/abnormal . GRAN MAT (NEUT) % 82.9 % (test code = 770-8) IMM GRAN % (test code 0.50 % = 0259580606) LYMPH % (test code = 7.0 % 736-9) MONO % (test code = 5.5 % 5905-5) EOS % (test code = 3.8 % 713-8) BASO % (test code = 0.3 % 706-2) GRAN MAT x10^3(ANC) 9.13 10*3/uL 1.99-6.95 H (test code = 3466192379) IMM GRAN x10^3 (test 0.06 10*3/uL 0.00-0.06 code = 4766866831) LYMPH x10^3 (test code 0.77 10*3/uL 1.09-3.23 L = 731-0) MONO x10^3 (test code 0.61 10*3/uL 0.36-1.02 = 742-7) EOS x10^3 (test code = 0.42 10*3/uL 0.06-0.53 711-2) BASO x10^3 (test code 0.03 10*3/uL 0.01-0.09 = 704-7) Lab Interpretation Abnormal (test code = 38508-6) [facility] [id number] 10:01:38 Test Item Value Reference Range Interpretation Comments WBC (test code = 11.02 See_Comment H [Automated 6690-2) message] The sy stem which generated this result transmitted reference range : 4.20 - 10.70 10*3/?L. The reference range was not used to interpret this result as normal/abnormal . RBC (test code = 2.52 See_Comment L [Automated 789-8) message] The sy stem which generated this result transmitted reference range : 4.26 - 5.52 10*6/?L. The reference range was not used to interpret this result as normal/abnormal . HGB (test code = 6.9 g/dL 12.2-16.4 L 718-7) HCT (test code = 22.5 % 38.4-49.3 L 4544-3) MCV (test code = 89.3 fL 81.7-95.6 787-2) MCH (test code = 27.4 pg 26.1-32.7 785-6) MCHC (test code = 30.7 g/dL 31.2-35.0 L 786-4) RDW-SD (test code = 62.7 fL 38.5-51.6 H 52432-7) RDW-CV (test code = 19.3 % 12.1-15.4 H 788-0) PLT (test code = 150 See_Comment [Automated 777-3) message] The sy stem which generated this result transmitted reference range : 150 - 328 10*3/ ?L. The reference r kyra was not used to interpret this result as normal/abnormal . MPV (test code = 13.0 fL 9.8-13.0 24596-8) NRBC/100 WBC (test 0.0 See_Comment [Automat ed code = 8257223727) message] The system which generated this result transmitted reference range : 0.0 - 10.0 /100 WBCs. The refer ence range was not u sed to interpret th is result as normal/abnormal . NRBC x10^3 (test code See_Comment [Auto mated = 1600442066) message] The s ystem which generated this result transmitted reference range : 10*3/?L. The reference range was not used to interpret this result as normal/abnormal . GRAN MAT (NEUT) % 82.9 % (test code = 770-8) IMM GRAN % (test code 0.50 % = 9527596750) LYMPH % (test code = 7.0 % 736-9) MONO % (test code = 5.5 % 5905-5) EOS % (test code = 3.8 % 713-8) BASO % (test code = 0.3 % 706-2) GRAN MAT x10^3(ANC) 9.13 10*3/uL 1.99-6.95 H (test code = 9562162435) IMM GRAN x10^3 (test 0.06 10*3/uL 0.00-0.06 code = 5409863454) LYMPH x10^3 (test code 0.77 10*3/uL 1.09-3.23 L = 731-0) MONO x10^3 (test code 0.61 10*3/uL 0.36-1.02 = 742-7) EOS x10^3 (test code = 0.42 10*3/uL 0.06-0.53 711-2) BASO x10^3 (test code 0.03 10*3/uL 0.01-0.09 = 704-7) Lab Interpretation Abnormal (test code = 65976-4) [facility] [id number] 10:01:38 Test Item Value Reference Range Interpretation Comments WBC (test code = 11.02 See_Comment H [Automated 0390-2) message] The sy stem which generated this result transmitted reference range : 4.20 - 10.70 10*3/?L. The reference range was not used to interpret this result as normal/abnormal . RBC (test code = 2.52 See_Comment L [Automated 039-8) message] The sy stem which generated this result transmitted reference range : 4.26 - 5.52 10*6/?L. The reference range was not used to interpret this result as normal/abnormal . HGB (test code = 6.9 g/dL 12.2-16.4 L 718-7) HCT (test code = 22.5 % 38.4-49.3 L 4544-3) MCV (test code = 89.3 fL 81.7-95.6 787-2) MCH (test code = 27.4 pg 26.1-32.7 785-6) MCHC (test code = 30.7 g/dL 31.2-35.0 L 786-4) RDW-SD (test code = 62.7 fL 38.5-51.6 H 70501-1) RDW-CV (test code = 19.3 % 12.1-15.4 H 788-0) PLT (test code = 150 See_Comment [Automated 777-3) message] The sy stem which generated this result transmitted reference range : 150 - 328 10*3/ ?L. The reference r kyra was not used to interpret this result as normal/abnormal . MPV (test code = 13.0 fL 9.8-13.0 17169-7) NRBC/100 WBC (test 0.0 See_Comment [Automat ed code = 2418742920) message] The system which generated this result transmitted reference range : 0.0 - 10.0 /100 WBCs. The refer ence range was not u sed to interpret th is result as normal/abnormal . NRBC x10^3 (test code See_Comment [Auto mated = 1178700569) message] The s ystem which generated this result transmitted reference range : 10*3/?L. The reference range was not used to interpret this result as normal/abnormal . GRAN MAT (NEUT) % 82.9 % (test code = 770-8) IMM GRAN % (test code 0.50 % = 2682281085) LYMPH % (test code = 7.0 % 736-9) MONO % (test code = 5.5 % 5905-5) EOS % (test code = 3.8 % 713-8) BASO % (test code = 0.3 % 706-2) GRAN MAT x10^3(ANC) 9.13 10*3/uL 1.99-6.95 H (test code = 2420786294) IMM GRAN x10^3 (test 0.06 10*3/uL 0.00-0.06 code = 6093513623) LYMPH x10^3 (test code 0.77 10*3/uL 1.09-3.23 L = 731-0) MONO x10^3 (test code 0.61 10*3/uL 0.36-1.02 = 742-7) EOS x10^3 (test code = 0.42 10*3/uL 0.06-0.53 711-2) BASO x10^3 (test code 0.03 10*3/uL 0.01-0.09 = 704-7) Lab Interpretation Abnormal (test code = 89433-3) [facility] GLUCOSE (AUTOMATED)2023-03-18 09:39:12 Test Item Value Reference Range Interpretation Comments POCT GLU (test code = 183 mg/dL 70-110 H Notifi ed Provider [id number]) Lab Interpretation (test Abnormal code = 41311-9) [facility] GLUCOSE (AUTOMATED)2023-03-18 09:39:12 Test Item Value Reference Range Interpretation Comments POCT GLU (test code = 183 mg/dL 70-110 H Notifi ed Provider [id number]) Lab Interpretation (test Abnormal code = 23840-5) [facility] GLUCOSE (AUTOMATED)2023-03-18 04:40:04 Test Item Value Reference Range Interpretation Comments POCT GLU (test code = 104 mg/dL 70-110 Notifi ed Provider [id number]) Lab Interpretation (test Normal code = 61248-6) [facility] GLUCOSE (AUTOMATED)2023-03-18 04:40:04 Test Item Value Reference Range Interpretation Comments POCT GLU (test code = 104 mg/dL 70-110 Notifi ed Provider [id number]) Lab Interpretation (test Normal code = 68759-5) [facility] GLUCOSE (AUTOMATED)2023-03-18 01:44:25 Test Item Value Reference Range Interpretation Comments POCT GLU (test code = 129 mg/dL 70-110 H Notifi ed Provider [id number]) Lab Interpretation (test Abnormal code = 90312-0) [facility] GLUCOSE (AUTOMATED)2023-03-18 01:44:25 Test Item Value Reference Range Interpretation Comments POCT GLU (test code = 129 mg/dL 70-110 H Notifi ed Provider [id number]) Lab Interpretation (test Abnormal code = 26240-8) [facility] GLUCOSE (AUTOMATED)2023-03-17 22:26:08 Test Item Value Reference Range Interpretation Comments POCT GLU (test code = 7007074485) 78 mg/dL 70-110 Lab Interpretation (test code = Normal 70034-7) [facility] GLUCOSE (AUTOMATED)2023-03-17 22:26:08 Test Item Value Reference Range Interpretation Comments POCT GLU (test code = 8083842714) 78 mg/dL 70-110 Lab Interpretation (test code = Normal 92513-5) [facility] GLUCOSE (AUTOMATED)2023-03-17 17:32:02 Test Item Value Reference Range Interpretation Comments POCT GLU (test code = 7379870531) 73 mg/dL 70-110 Lab Interpretation (test code = Normal 02136-5) [facility] GLUCOSE (AUTOMATED)2023-03-17 17:32:02 Test Item Value Reference Range Interpretation Comments POCT GLU (test code = 5292395891) 73 mg/dL 70-110 Lab Interpretation (test code = Normal 57474-5) [facility] GLUCOSE (AUTOMATED)2023-03-17 15:21:42 Test Item Value Reference Range Interpretation Comments POCT GLU (test code = 8335723522) 83 mg/dL 70-110 Lab Interpretation (test code = Normal 28659-1) [facility] GLUCOSE (AUTOMATED)2023-03-17 15:21:42 Test Item Value Reference Range Interpretation Comments POCT GLU (test code = 9303336812) 83 mg/dL 70-110 Lab Interpretation (test code = Normal 80801-3) [facility] WITH [id number] 10:05:01 Test Item Value Reference Range Interpretation Comments WBC (test code = 10.65 See_Comment [Automated 6690-2) message] The sy stem which generated this result transmitted reference range : 4.20 - 10.70 10*3/?L. The reference range was not used to interpret this result as normal/abnormal . RBC (test code = 2.64 See_Comment L [Automated 789-8) message] The sy stem which generated this result transmitted reference range : 4.26 - 5.52 10*6/?L. The reference range was not used to interpret this result as normal/abnormal . HGB (test code = 7.2 g/dL 12.2-16.4 L 718-7) HCT (test code = 23.7 % 38.4-49.3 L 4544-3) MCV (test code = 89.8 fL 81.7-95.6 787-2) MCH (test code = 27.3 pg 26.1-32.7 785-6) MCHC (test code = 30.4 g/dL 31.2-35.0 L 786-4) RDW-SD (test code = 63.6 fL 38.5-51.6 H 75321-1) RDW-CV (test code = 19.4 % 12.1-15.4 H 788-0) PLT (test code = 126 See_Comment L [Automated 777-3) message] The sy stem which generated this result transmitted reference range : 150 - 328 10*3/ ?L. The reference r kyra was not used to interpret this result as normal/abnormal . MPV (test code = 13.0 fL 9.8-13.0 88980-6) NRBC/100 WBC (test 0.0 See_Comment [Automat ed code = 6881493235) message] The system which generated this result transmitted reference range : 0.0 - 10.0 /100 WBCs. The refer ence range was not u sed to interpret th is result as normal/abnormal . NRBC x10^3 (test code See_Comment [Auto mated = 6397307090) message] The s ystem which generated this result transmitted reference range : 10*3/?L. The reference range was not used to interpret this result as normal/abnormal . GRAN MAT (NEUT) % 80.7 % (test code = 770-8) IMM GRAN % (test code 0.50 % = 0093250281) LYMPH % (test code = 8.5 % 736-9) MONO % (test code = 6.3 % 5905-5) EOS % (test code = 3.8 % 713-8) BASO % (test code = 0.2 % 706-2) GRAN MAT x10^3(ANC) 8.60 10*3/uL 1.99-6.95 H (test code = 1476542345) IMM GRAN x10^3 (test 0.05 10*3/uL 0.00-0.06 code = 4813218138) LYMPH x10^3 (test code 0.90 10*3/uL 1.09-3.23 L = 731-0) MONO x10^3 (test code 0.67 10*3/uL 0.36-1.02 = 742-7) EOS x10^3 (test code = 0.41 10*3/uL 0.06-0.53 711-2) BASO x10^3 (test code 0.01-0.09 = 704-7) Lab Interpretation Abnormal (test code = 37543-7) [facility] WITH [id number] 10:05:01 Test Item Value Reference Range Interpretation Comments WBC (test code = 10.65 See_Comment [Automated 6690-2) message] The sy stem which generated this result transmitted reference range : 4.20 - 10.70 10*3/?L. The reference range was not used to interpret this result as normal/abnormal . RBC (test code = 2.64 See_Comment L [Automated 789-8) message] The sy stem which generated this result transmitted reference range : 4.26 - 5.52 10*6/?L. The reference range was not used to interpret this result as normal/abnormal . HGB (test code = 7.2 g/dL 12.2-16.4 L 718-7) HCT (test code = 23.7 % 38.4-49.3 L 4544-3) MCV (test code = 89.8 fL 81.7-95.6 787-2) MCH (test code = 27.3 pg 26.1-32.7 785-6) MCHC (test code = 30.4 g/dL 31.2-35.0 L 786-4) RDW-SD (test code = 63.6 fL 38.5-51.6 H 64404-6) RDW-CV (test code = 19.4 % 12.1-15.4 H 788-0) PLT (test code = 126 See_Comment L [Automated 777-3) message] The sy stem which generated this result transmitted reference range : 150 - 328 10*3/ ?L. The reference r kyra was not used to interpret this result as normal/abnormal . MPV (test code = 13.0 fL 9.8-13.0 29190-2) NRBC/100 WBC (test 0.0 See_Comment [Automat ed code = 3663517686) message] The system which generated this result transmitted reference range : 0.0 - 10.0 /100 WBCs. The refer ence range was not u sed to interpret th is result as normal/abnormal . NRBC x10^3 (test code See_Comment [Auto mated = 0956531827) message] The s ystem which generated this result transmitted reference range : 10*3/?L. The reference range was not used to interpret this result as normal/abnormal . GRAN MAT (NEUT) % 80.7 % (test code = 770-8) IMM GRAN % (test code 0.50 % = 0699851670) LYMPH % (test code = 8.5 % 736-9) MONO % (test code = 6.3 % 5905-5) EOS % (test code = 3.8 % 713-8) BASO % (test code = 0.2 % 706-2) GRAN MAT x10^3(ANC) 8.60 10*3/uL 1.99-6.95 H (test code = 7746656705) IMM GRAN x10^3 (test 0.05 10*3/uL 0.00-0.06 code = 7759895604) LYMPH x10^3 (test code 0.90 10*3/uL 1.09-3.23 L = 731-0) MONO x10^3 (test code 0.67 10*3/uL 0.36-1.02 = 742-7) EOS x10^3 (test code = 0.41 10*3/uL 0.06-0.53 711-2) BASO x10^3 (test code 0.01-0.09 = 704-7) Lab Interpretation Abnormal (test code = 45813-6) [facility] GLUCOSE (AUTOMATED)2023-03-17 09:37:33 Test Item Value Reference Range Interpretation Comments POCT GLU (test code = 121 mg/dL 70-110 H Notifi ed Provider [id number]) Lab Interpretation (test Abnormal code = 95046-6) [facility] GLUCOSE (AUTOMATED)2023-03-17 09:37:33 Test Item Value Reference Range Interpretation Comments POCT GLU (test code = 121 mg/dL 70-110 H Notifi ed Provider [id number]) Lab Interpretation (test Abnormal code = 63534-7) [facility] GLUCOSE (AUTOMATED)2023-03-17 04:37:54 Test Item Value Reference Range Interpretation Comments POCT GLU (test code = 100 mg/dL 70-110 Notifi ed Provider [id number]) Lab Interpretation (test Normal code = 52797-0) [facility] GLUCOSE (AUTOMATED)2023-03-17 04:37:54 Test Item Value Reference Range Interpretation Comments POCT GLU (test code = 100 mg/dL 70-110 Notifi ed Provider [id number]) Lab Interpretation (test Normal code = 32256-2) [facility] GLUCOSE (AUTOMATED)2023-03-17 01:26:17 Test Item Value Reference Range Interpretation Comments POCT GLU (test code = 62 mg/dL 70-110 L Notifi ed Provider [id number]) Lab Interpretation (test Abnormal code = 38083-0) [facility] GLUCOSE (AUTOMATED)2023-03-17 01:26:17 Test Item Value Reference Range Interpretation Comments POCT GLU (test code = 62 mg/dL 70-110 L Notifi ed Provider [id number]) Lab Interpretation (test Abnormal code = 54669-4) [facility] GLUCOSE (AUTOMATED)2023-03-16 16:25:19 Test Item Value Reference Range Interpretation Comments POCT GLU (test code = 1602633916) 175 mg/dL 70-110 H Lab Interpretation (test code = Abnormal 85361-5) [facility] GLUCOSE (AUTOMATED)2023-03-16 16:25:19 Test Item Value Reference Range Interpretation Comments POCT GLU (test code = 4157838480) 175 mg/dL 70-110 H Lab Interpretation (test code = Abnormal 94920-2) [facility] Test Item Value Reference Range Interpretation Comments PHOSPHORUS (test code = 7053505274) 3.6 mg/dL 2.5-5.0 Lab Interpretation (test code = Normal 94895-1) [facility] 12:27:52 Test Item Value Reference Range Interpretation Comments PHOSPHORUS (test code = 6439683710) 3.6 mg/dL 2.5-5.0 Lab Interpretation (test code = Normal 62447-7) [facility] METABOLIC PANEL (NA, K, CL, CO2, GLUCOSE, BUN, CREATININE, CA)2023-03-16 12:27:51 Test Item Value Reference Range Interpretation Comments NA (test code = 131 mmol/L 135-145 L 4827067146) K (test code = 3.9 mmol/L 3.5-5.0 2976105397) CL (test code = 98 mmol/L 98-108 8280989210) CO2 TOTAL (test code = 23 mmol/L 23-31 3377612939) AGAP (test code = 10 2-16 0015999336) BUN (test code = 42 mg/dL 7-23 H 8454785616) GLUCOSE (test code = 148 mg/dL 70-110 H 8533045090) CREATININE (test code = 3.09 mg/dL 0.60-1.25 H 1582404654) CALCIUM (test code = 7.9 mg/dL 8.6-10.6 L 5042789983) eGFR (test code = 20.7 mL/min/1.73m2 1172832827) MIKAYLA (test code = MIKAYLA) Association of Glomerular Filtration Rate (GFR) and Staging of Kidney Disease* + --+ --+ ------+| GFR (mL/min/1.73 m2) ?| With Kidney Damage ?| ?Without Kidney Damage+ --------+ --------+ +| ?>90 ?| ?Stage one ?| ? Normal ?+ ---+ ---+ -------+| ?60-89 ?| ?Stage two ?| ? Decreased GFR ? + --+ --+ ------+| ?30-59 ?| ?Stage three ?| ? Stage three ? + --+ --+ ------+| ?15-29 ?| ?Stage four ? | ? Stage four ?+ ---+ ---+ -------+| ?<15 (or dialysis) ? ?| ?Stage five ? | ? Stage five ?+ ---+ ---+ -------+ *Each stage assumes the associated GFR level has been in effect for at least three months. ?Stages 1 to 5, with or without kidney disease, indicate chronic kidney disease. Notes: Determination of stages one and two (with eGFR >59mL/min/1.73 m2) requires estimation of kidney damage for at least three months as defined by structural or functional abnormalities of the kidney, manifested by either:Pathological abnormalities or Markers of kidney damage (including abnormalities in the composition of the blood or urine or abnormalities in imaging tests). Lab Interpretation Abnormal (test code = 82718-5) [facility] Test Item Value Reference Range Interpretation Comments MAGNESIUM (test code = 7930372770) 1.7 mg/dL 1.7-2.4 Lab Interpretation (test code = Normal 15252-1) [facility] (NA, K, CL, CO2, GLUCOSE, BUN, CREATININE, CA)2023-03-16 12:27:51 Test Item Value Reference Range Interpretation Comments NA (test code = 131 mmol/L 135-145 L 5070553398) K (test code = 3.9 mmol/L 3.5-5.0 3249983444) CL (test code = 98 mmol/L 98-108 5076748079) CO2 TOTAL (test code = 23 mmol/L 23-31 3527841055) AGAP (test code = 10 2-16 7826218556) BUN (test code = 42 mg/dL 7-23 H 9795100708) GLUCOSE (test code = 148 mg/dL 70-110 H 0544178179) CREATININE (test code = 3.09 mg/dL 0.60-1.25 H 0918781294) CALCIUM (test code = 7.9 mg/dL 8.6-10.6 L 7161474636) eGFR (test code = 20.7 mL/min/1.73m2 9515738903) MIKAYLA (test code = MIKAYLA) Association of Glomerular Filtration Rate (GFR) and Staging of Kidney Disease* + --+ --+ ------+| GFR (mL/min/1.73 m2) ?| With Kidney Damage ?| ?Without Kidney Damage+ --------+ --------+ +| ?>90 ?| ?Stage one ?| ? Normal ?+ ---+ ---+ -------+| ?60-89 ?| ?Stage two ?| ? Decreased GFR ? + --+ --+ ------+| ?30-59 ?| ?Stage three ?| ? Stage three ? + --+ --+ ------+| ?15-29 ?| ?Stage four ? | ? Stage four ?+ ---+ ---+ -------+| ?<15 (or dialysis) ? ?| ?Stage five ? | ? Stage five ?+ ---+ ---+ -------+ *Each stage assumes the associated GFR level has been in effect for at least three months. ?Stages 1 to 5, with or without kidney disease, indicate chronic kidney disease. Notes: Determination of stages one and two (with eGFR >59mL/min/1.73 m2) requires estimation of kidney damage for at least three months as defined by structural or functional abnormalities of the kidney, manifested by either:Pathological abnormalities or Markers of kidney damage (including abnormalities in the composition of the blood or urine or abnormalities in imaging tests). Lab Interpretation Abnormal (test code = 08137-2) [facility] Test Item Value Reference Range Interpretation Comments MAGNESIUM (test code = 8053353896) 1.7 mg/dL 1.7-2.4 Lab Interpretation (test code = Normal 29512-6) [facility] GLUCOSE (AUTOMATED)2023-03-16 11:17:32 Test Item Value Reference Range Interpretation Comments POCT GLU (test code = 1097628070) 166 mg/dL 70-110 H Lab Interpretation (test code = Abnormal 08904-1) [facility] GLUCOSE (AUTOMATED)2023-03-16 11:17:32 Test Item Value Reference Range Interpretation Comments POCT GLU (test code = 8969157838) 166 mg/dL 70-110 H Lab Interpretation (test code = Abnormal 43074-5) [facility] GLUCOSE (AUTOMATED)2023-03-16 05:25:52 Test Item Value Reference Range Interpretation Comments POCT GLU (test code = 7955094482) 154 mg/dL 70-110 H Lab Interpretation (test code = Abnormal 59495-1) [facility] 05:25:52 Test Item Value Reference Range Interpretation Comments POCT GLU (test code = 0875754318) 154 mg/dL 70-110 H Lab Interpretation (test code = Abnormal 31721-9) [facility] 00:57:43 Test Item Value Reference Range Interpretation Comments POCT GLU (test code = 0130343912) 91 mg/dL 70-110 Lab Interpretation (test code = Normal 41953-0) [facility] GLUCOSE (AUTOMATED)2023-03-16 00:57:43 Test Item Value Reference Range Interpretation Comments POCT GLU (test code = 4556530451) 91 mg/dL 70-110 Lab Interpretation (test code = Normal 37181-0) [facility] GLUCOSE (AUTOMATED)2023-03-15 23:16:08 Test Item Value Reference Range Interpretation Comments POCT GLU (test code = 4547031380) 102 mg/dL 70-110 Lab Interpretation (test code = Normal 15642-6) [facility] 23:16:08 Test Item Value Reference Range Interpretation Comments POCT GLU (test code = 2139489177) 102 mg/dL 70-110 Lab Interpretation (test code = Normal 97921-5) [facility] 17:25:19 Test Item Value Reference Range Interpretation Comments POCT GLU (test code = 4700027306) 93 mg/dL 70-110 Lab Interpretation (test code = Normal 45167-3) [facility] 17:25:19 Test Item Value Reference Range Interpretation Comments POCT GLU (test code = 5225742954) 93 mg/dL 70-110 Lab Interpretation (test code = Normal 61264-1) [facility] GLUCOSE (AUTOMATED)2023-03-15 09:17:11 Test Item Value Reference Range Interpretation Comments POCT GLU (test code = 4002418387) 124 mg/dL 70-110 H Lab Interpretation (test code = Abnormal 46869-3) [facility] GLUCOSE (AUTOMATED)2023-03-15 09:17:11 Test Item Value Reference Range Interpretation Comments POCT GLU (test code = 4368963471) 124 mg/dL 70-110 H Lab Interpretation (test code = Abnormal 17794-9) [facility] GLUCOSE (AUTOMATED)2023-03-15 05:14:10 Test Item Value Reference Range Interpretation Comments POCT GLU (test code = 1760699687) 171 mg/dL 70-110 H Lab Interpretation (test code = Abnormal 87906-9) [facility] GLUCOSE (AUTOMATED)2023-03-15 05:14:10 Test Item Value Reference Range Interpretation Comments POCT GLU (test code = 3933812762) 171 mg/dL 70-110 H Lab Interpretation (test code = Abnormal 84261-2) [facility] [facility] 01:02:42 Test Item Value Reference Range Interpretation Comments POCT GLU (test code = 7514567939) 198 mg/dL 70-110 H Lab Interpretation (test code = Abnormal 03593-2) [facility] GLUCOSE (AUTOMATED)2023-03-15 01:02:42 Test Item Value Reference Range Interpretation Comments POCT GLU (test code = 9696845499) 198 mg/dL 70-110 H Lab Interpretation (test code = Abnormal 34227-2) [facility] GLUCOSE (AUTOMATED)2023-03-14 18:07:09 Test Item Value Reference Range Interpretation Comments POCT GLU (test code = 3000714585) 61 mg/dL 70-110 L Lab Interpretation (test code = Abnormal 72785-5) [facility] GLUCOSE (AUTOMATED)2023-03-14 18:07:09 Test Item Value Reference Range Interpretation Comments POCT GLU (test code = 5733982912) 61 mg/dL 70-110 L Lab Interpretation (test code = Abnormal 64079-6) [facility] GLUCOSE (AUTOMATED)2023-03-14 13:58:58 Test Item Value Reference Range Interpretation Comments POCT GLU (test code = 6620058546) 85 mg/dL 70-110 Lab Interpretation (test code = Normal 19651-9) [facility] GLUCOSE (AUTOMATED)2023-03-14 13:58:58 Test Item Value Reference Range Interpretation Comments POCT GLU (test code = 8448090549) 85 mg/dL 70-110 Lab Interpretation (test code = Normal 77685-7) [facility] GLUCOSE (AUTOMATED)2023-03-14 05:00:45 Test Item Value Reference Range Interpretation Comments POCT GLU (test code = 1843277476) 161 mg/dL 70-110 H Lab Interpretation (test code = Abnormal 86785-7) [facility] GLUCOSE (AUTOMATED)2023-03-14 05:00:45 Test Item Value Reference Range Interpretation Comments POCT GLU (test code = 2669007351) 161 mg/dL 70-110 H Lab Interpretation (test code = Abnormal 74597-8) [facility] GLUCOSE (AUTOMATED)2023-03-14 02:15:29 Test Item Value Reference Range Interpretation Comments POCT GLU (test code = 8624638681) 215 mg/dL 70-110 H Lab Interpretation (test code = Abnormal 03156-8) [facility] GLUCOSE (AUTOMATED)2023-03-14 02:15:29 Test Item Value Reference Range Interpretation Comments POCT GLU (test code = 0708790224) 215 mg/dL 70-110 H Lab Interpretation (test code = Abnormal 93611-0) [facility] GLUCOSE (AUTOMATED)2023-03-13 21:56:44 Test Item Value Reference Range Interpretation Comments POCT GLU (test code = 8502436875) 148 mg/dL 70-110 H Lab Interpretation (test code = Abnormal 26896-1) [facility] GLUCOSE (AUTOMATED)2023-03-13 21:56:44 Test Item Value Reference Range Interpretation Comments POCT GLU (test code = 5525026426) 148 mg/dL 70-110 H Lab Interpretation (test code = Abnormal 14688-3) [facility] GLUCOSE (AUTOMATED)2023-03-13 17:36:40 Test Item Value Reference Range Interpretation Comments POCT GLU (test code = 8367274884) 178 mg/dL 70-110 H Lab Interpretation (test code = Abnormal 60703-5) [facility] GLUCOSE (AUTOMATED)2023-03-13 17:36:40 Test Item Value Reference Range Interpretation Comments POCT GLU (test code = 9354687655) 178 mg/dL 70-110 H Lab Interpretation (test code = Abnormal 58199-9) [facility] GLUCOSE (AUTOMATED)2023-03-13 14:50:11 Test Item Value Reference Range Interpretation Comments POCT GLU (test code = 0132440355) 162 mg/dL 70-110 H Lab Interpretation (test code = Abnormal 79765-3) [facility] GLUCOSE (AUTOMATED)2023-03-13 14:50:11 Test Item Value Reference Range Interpretation Comments POCT GLU (test code = 0442181553) 162 mg/dL 70-110 H Lab Interpretation (test code = Abnormal 64631-3) [facility] WITH [id number] 09:11:29 Test Item Value Reference Range Interpretation Comments WBC (test code = 17.65 See_Comment H [Automated 6690-2) message] The sy stem which generated this result transmitted reference range : 4.20 - 10.70 10*3/?L. The reference range was not used to interpret this result as normal/abnormal . RBC (test code = 2.82 See_Comment L [Automated 789-8) message] The sy stem which generated this result transmitted reference range : 4.26 - 5.52 10*6/?L. The reference range was not used to interpret this result as normal/abnormal . HGB (test code = 7.9 g/dL 12.2-16.4 L 718-7) HCT (test code = 25.6 % 38.4-49.3 L 4544-3) MCV (test code = 90.8 fL 81.7-95.6 787-2) MCH (test code = 28.0 pg 26.1-32.7 785-6) MCHC (test code = 30.9 g/dL 31.2-35.0 L 786-4) RDW-SD (test code = 70.1 fL 38.5-51.6 H 64874-2) RDW-CV (test code = 21.3 % 12.1-15.4 H 788-0) PLT (test code = 95 See_Comment L [Automated 777-3) message] The sy stem which generated this result transmitted reference range : 150 - 328 10*3/ ?L. The reference r kyra was not used to interpret this result as normal/abnormal . MPV (test code = Not Measure d 89994-8) IPF % (test code = 16.7 % 1.2-10.7 H Platelet count 7627142938) measured by fluorescence method. NRBC/100 WBC (test 0.0 See_Comment [Automat ed code = 4670274478) message] The system which generated this result transmitted reference range : 0.0 - 10.0 /100 WBCs. The refer ence range was not u sed to interpret th is result as normal/abnormal . NRBC x10^3 (test code See_Comment [Auto mated = 9800236219) message] The s ystem which generated this result transmitted reference range : 10*3/?L. The reference range was not used to interpret this result as normal/abnormal . GRAN MAT (NEUT) % 82.4 % (test code = 770-8) IMM GRAN % (test code 0.80 % = 7801462942) LYMPH % (test code = 7.9 % 736-9) MONO % (test code = 7.1 % 5905-5) EOS % (test code = 1.6 % 713-8) BASO % (test code = 0.2 % 706-2) GRAN MAT x10^3(ANC) 14.54 10*3/uL 1.99-6.95 H (test code = 8422581293) IMM GRAN x10^3 (test 0.14 10*3/uL 0.00-0.06 H code = 3415957313) LYMPH x10^3 (test 1.39 10*3/uL 1.09-3.23 code = 731-0) MONO x10^3 (test code 1.26 10*3/uL 0.36-1.02 H = 742-7) EOS x10^3 (test code 0.29 10*3/uL 0.06-0.53 = 711-2) BASO x10^3 (test code 0.03 10*3/uL 0.01-0.09 = 704-7) BASO STIPPLING (test Present A code = 703-9) Lab Interpretation Abnormal (test code = 25980-3) [facility] WITH [id number] 09:11:29 Test Item Value Reference Range Interpretation Comments WBC (test code = 17.65 See_Comment H [Automated 6690-2) message] The sy stem which generated this result transmitted reference range : 4.20 - 10.70 10*3/?L. The reference range was not used to interpret this result as normal/abnormal . RBC (test code = 2.82 See_Comment L [Automated 789-8) message] The sy stem which generated this result transmitted reference range : 4.26 - 5.52 10*6/?L. The reference range was not used to interpret this result as normal/abnormal . HGB (test code = 7.9 g/dL 12.2-16.4 L 718-7) HCT (test code = 25.6 % 38.4-49.3 L 4544-3) MCV (test code = 90.8 fL 81.7-95.6 787-2) MCH (test code = 28.0 pg 26.1-32.7 785-6) MCHC (test code = 30.9 g/dL 31.2-35.0 L 786-4) RDW-SD (test code = 70.1 fL 38.5-51.6 H 49152-6) RDW-CV (test code = 21.3 % 12.1-15.4 H 788-0) PLT (test code = 95 See_Comment L [Automated 777-3) message] The sy stem which generated this result transmitted reference range : 150 - 328 10*3/ ?L. The reference r kyra was not used to interpret this result as normal/abnormal . MPV (test code = Not Measure d 84099-0) IPF % (test code = 16.7 % 1.2-10.7 H Platelet count 3445090091) measured by fluorescence method. NRBC/100 WBC (test 0.0 See_Comment [Automat ed code = 7075694732) message] The system which generated this result transmitted reference range : 0.0 - 10.0 /100 WBCs. The refer ence range was not u sed to interpret th is result as normal/abnormal . NRBC x10^3 (test code See_Comment [Auto mated = 8401713817) message] The s ystem which generated this result transmitted reference range : 10*3/?L. The reference range was not used to interpret this result as normal/abnormal . GRAN MAT (NEUT) % 82.4 % (test code = 770-8) IMM GRAN % (test code 0.80 % = 3212372668) LYMPH % (test code = 7.9 % 736-9) MONO % (test code = 7.1 % 5905-5) EOS % (test code = 1.6 % 713-8) BASO % (test code = 0.2 % 706-2) GRAN MAT x10^3(ANC) 14.54 10*3/uL 1.99-6.95 H (test code = 4753382299) IMM GRAN x10^3 (test 0.14 10*3/uL 0.00-0.06 H code = 9080408822) LYMPH x10^3 (test 1.39 10*3/uL 1.09-3.23 code = 731-0) MONO x10^3 (test code 1.26 10*3/uL 0.36-1.02 H = 742-7) EOS x10^3 (test code 0.29 10*3/uL 0.06-0.53 = 711-2) BASO x10^3 (test code 0.03 10*3/uL 0.01-0.09 = 704-7) BASO STIPPLING (test Present A code = 703-9) Lab Interpretation Abnormal (test code = 55944-1) [facility] Test Item Value Reference Range Interpretation Comments PHOSPHORUS (test code = 9657606063) 4.7 mg/dL 2.5-5.0 Lab Interpretation (test code = Normal 42004-8) [facility]42 Test Item Value Reference Range Interpretation Comments PHOSPHORUS (test code = 3016650717) 4.7 mg/dL 2.5-5.0 Lab Interpretation (test code = Normal 16603-1) [facility] (NA, K, CL, CO2, GLUCOSE, BUN, CREATININE, CA)2023-03-13 08:22:41 Test Item Value Reference Range Interpretation Comments NA (test code = 135 mmol/L 135-145 1159869296) K (test code = 3.8 mmol/L 3.5-5.0 8745918646) CL (test code = 100 mmol/L 98-108 5982637904) CO2 TOTAL (test code = 23 mmol/L 23-31 2213689496) AGAP (test code = 12 2-16 5667625207) BUN (test code = 62 mg/dL 7-23 H 3470702059) GLUCOSE (test code = 157 mg/dL 70-110 H 9700553206) CREATININE (test code = 3.65 mg/dL 0.60-1.25 H 5119193203) CALCIUM (test code = 8.0 mg/dL 8.6-10.6 L 6302752974) eGFR (test code = 17.1 mL/min/1.73m2 7035644143) MIKAYLA (test code = MIKAYLA) Association of Glomerular Filtration Rate (GFR) and Staging of Kidney Disease* + --+ --+ ------+| GFR (mL/min/1.73 m2) ?| With Kidney Damage ?| ?Without Kidney Damage+ --------+ --------+ +| ?>90 ?| ?Stage one ?| ? Normal ?+ ---+ ---+ -------+| ?60-89 ?| ?Stage two ?| ? Decreased GFR ? + --+ --+ ------+| ?30-59 ?| ?Stage three ?| ? Stage three ? + --+ --+ ------+| ?15-29 ?| ?Stage four ? | ? Stage four ?+ ---+ ---+ -------+| ?<15 (or dialysis) ? ?| ?Stage five ? | ? Stage five ?+ ---+ ---+ -------+ *Each stage assumes the associated GFR level has been in effect for at least three months. ?Stages 1 to 5, with or without kidney disease, indicate chronic kidney disease. Notes: Determination of stages one and two (with eGFR >59mL/min/1.73 m2) requires estimation of kidney damage for at least three months as defined by structural or functional abnormalities of the kidney, manifested by either:Pathological abnormalities or Markers of kidney damage (including abnormalities in the composition of the blood or urine or abnormalities in imaging tests). Lab Interpretation Abnormal (test code = 71710-1) [facility] Test Item Value Reference Range Interpretation Comments MAGNESIUM (test code = 5898611346) 2.1 mg/dL 1.7-2.4 Lab Interpretation (test code = Normal 65129-5) [facility] (NA, K, CL, CO2, GLUCOSE, BUN, CREATININE, CA)2023-03-13 08:22:41 Test Item Value Reference Range Interpretation Comments NA (test code = 135 mmol/L 135-145 4660129790) K (test code = 3.8 mmol/L 3.5-5.0 0779598352) CL (test code = 100 mmol/L 98-108 9998039251) CO2 TOTAL (test code = 23 mmol/L 23-31 2301491639) AGAP (test code = 12 2-16 5953773457) BUN (test code = 62 mg/dL 7-23 H 9957777516) GLUCOSE (test code = 157 mg/dL 70-110 H 0665284884) CREATININE (test code = 3.65 mg/dL 0.60-1.25 H 7101762473) CALCIUM (test code = 8.0 mg/dL 8.6-10.6 L 4313598539) eGFR (test code = 17.1 mL/min/1.73m2 3810261472) MIKAYLA (test code = MIKAYLA) Association of Glomerular Filtration Rate (GFR) and Staging of Kidney Disease* + --+ --+ ------+| GFR (mL/min/1.73 m2) ?| With Kidney Damage ?| ?Without Kidney Damage+ --------+ --------+ +| ?>90 ?| ?Stage one ?| ? Normal ?+ ---+ ---+ -------+| ?60-89 ?| ?Stage two ?| ? Decreased GFR ? + --+ --+ ------+| ?30-59 ?| ?Stage three ?| ? Stage three ? + --+ --+ ------+| ?15-29 ?| ?Stage four ? | ? Stage four ?+ ---+ ---+ -------+| ?<15 (or dialysis) ? ?| ?Stage five ? | ? Stage five ?+ ---+ ---+ -------+ *Each stage assumes the associated GFR level has been in effect for at least three months. ?Stages 1 to 5, with or without kidney disease, indicate chronic kidney disease. Notes: Determination of stages one and two (with eGFR >59mL/min/1.73 m2) requires estimation of kidney damage for at least three months as defined by structural or functional abnormalities of the kidney, manifested by either:Pathological abnormalities or Markers of kidney damage (including abnormalities in the composition of the blood or urine or abnormalities in imaging tests). Lab Interpretation Abnormal (test code = 43241-2) [facility] Test Item Value Reference Range Interpretation Comments MAGNESIUM (test code = 5921132219) 2.1 mg/dL 1.7-2.4 Lab Interpretation (test code = Normal 67246-2) [facility] GLUCOSE (AUTOMATED)2023-03-13 04:16:43 Test Item Value Reference Range Interpretation Comments POCT GLU (test code = 167 mg/dL 70-110 H Notifi ed Provider [id number]) Lab Interpretation (test Abnormal code = 36914-0) [facility] GLUCOSE (AUTOMATED)2023-03-13 04:16:43 Test Item Value Reference Range Interpretation Comments POCT GLU (test code = 167 mg/dL 70-110 H Notifi ed Provider [id number]) Lab Interpretation (test Abnormal code = 46507-8) [facility] GLUCOSE (AUTOMATED)2023-03-13 01:32:38 Test Item Value Reference Range Interpretation Comments POCT GLU (test code = 141 mg/dL 70-110 H Notifi ed Provider [id number]) Lab Interpretation (test Abnormal code = 62806-1) [facility] GLUCOSE (AUTOMATED)2023-03-13 01:32:38 Test Item Value Reference Range Interpretation Comments POCT GLU (test code = 141 mg/dL 70-110 H Notifi ed Provider [id number]) Lab Interpretation (test Abnormal code = 59876-2) [facility] [id number] 01:02:05 Test Item Value Reference Range Interpretation Comments Blood Culture-Aerobic No organisms No growth Previo us (test code = 28607-2) isolated prelim inary verified result was Culture In Progress on 03/07/2023 at 230 2 CDTPrevious preliminary verified result was No growth a t 24 hours on 03/08/2023 at 200 1 CDTPrevious preliminary verified result was No growth a t 48 hours on 03/09/2023 at 200 2 CDTPrevious preliminary verified result was No growth a t 72 hours on 03/10/2023 at 200 1 CDT Blood No organisms No growth Previous Culture-Anaerobic isolated preliminar y (test code = 50717-2) verifi ed result was Culture In Progress on 03/07/2023 at 230 2 CDTPrevious preliminary verified result was No growth a t 24 hours on 03/08/2023 at 200 1 CDTPrevious preliminary verified result was No growth a t 48 hours on 03/09/2023 at 200 2 CDTPrevious preliminary verified result was No growth a t 72 hours on 03/10/2023 at 200 1 CDT Lab Interpretation Normal (test code = 83174-8) [facility] CULTURE [id number] 01:02:05 Test Item Value Reference Range Interpretation Comments Blood Culture-Aerobic No organisms No growth Previo us (test code = 82615-4) isolated prelim inary verified result was Culture In Progress on 03/07/2023 at 230 2 CDTPrevious preliminary verified result was No growth a t 24 hours on 03/08/2023 at 200 1 CDTPrevious preliminary verified result was No growth a t 48 hours on 03/09/2023 at 200 2 CDTPrevious preliminary verified result was No growth a t 72 hours on 03/10/2023 at 200 1 CDT Blood No organisms No growth Previous Culture-Anaerobic isolated preliminar y (test code = 81522-4) verifi ed result was Culture In Progress on 03/07/2023 at 230 2 CDTPrevious preliminary verified result was No growth a t 24 hours on 03/08/2023 at 200 1 CDTPrevious preliminary verified result was No growth a t 48 hours on 03/09/2023 at 200 2 CDTPrevious preliminary verified result was No growth a t 72 hours on 03/10/2023 at 200 1 CDT Lab Interpretation Normal (test code = 17683-2) [facility] CULTURE [id number] 01:02:05 Test Item Value Reference Range Interpretation Comments Blood Culture-Aerobic No organisms No growth Previo us (test code = 16052-6) isolated prelim inary verified result was Culture In Progress on 03/07/2023 at 230 2 CDTPrevious preliminary verified result was No growth a t 24 hours on 03/08/2023 at 200 1 CDTPrevious preliminary verified result was No growth a t 48 hours on 03/09/2023 at 200 2 CDTPrevious preliminary verified result was No growth a t 72 hours on 03/10/2023 at 200 1 CDT Blood No organisms No growth Previous Culture-Anaerobic isolated preliminar y (test code = 39046-3) verifi ed result was Culture In Progress on 03/07/2023 at 230 2 CDTPrevious preliminary verified result was No growth a t 24 hours on 03/08/2023 at 200 1 CDTPrevious preliminary verified result was No growth a t 48 hours on 03/09/2023 at 200 2 CDTPrevious preliminary verified result was No growth a t 72 hours on 03/10/2023 at 200 1 CDT Lab Interpretation Normal (test code = 27868-2) [facility] CULTURE [id number] 01:02:05 Test Item Value Reference Range Interpretation Comments Blood Culture-Aerobic No organisms No growth Previo us (test code = 71245-7) isolated prelim inary verified result was Culture In Progress on 03/07/2023 at 230 2 CDTPrevious preliminary verified result was No growth a t 24 hours on 03/08/2023 at 200 1 CDTPrevious preliminary verified result was No growth a t 48 hours on 03/09/2023 at 200 2 CDTPrevious preliminary verified result was No growth a t 72 hours on 03/10/2023 at 200 1 CDT Blood No organisms No growth Previous Culture-Anaerobic isolated preliminar y (test code = 41615-0) verifi ed result was Culture In Progress on 03/07/2023 at 230 2 CDTPrevious preliminary verified result was No growth a t 24 hours on 03/08/2023 at 200 1 CDTPrevious preliminary verified result was No growth a t 48 hours on 03/09/2023 at 200 2 CDTPrevious preliminary verified result was No growth a t 72 hours on 03/10/2023 at 200 1 CDT Lab Interpretation Normal (test code = 51536-2) [facility] GLUCOSE (AUTOMATED)2023-03-12 22:19:09 Test Item Value Reference Range Interpretation Comments POCT GLU (test code = 6747543839) 187 mg/dL 70-110 H Lab Interpretation (test code = Abnormal 30434-2) [facility] GLUCOSE (AUTOMATED)2023-03-12 22:19:09 Test Item Value Reference Range Interpretation Comments POCT GLU (test code = 6565166643) 187 mg/dL 70-110 H Lab Interpretation (test code = Abnormal 54620-2) [facility] GLUCOSE (AUTOMATED)2023-03-12 18:29:03 Test Item Value Reference Range Interpretation Comments POCT GLU (test code = 1135520793) 168 mg/dL 70-110 H Lab Interpretation (test code = Abnormal 72304-4) [facility] GLUCOSE (AUTOMATED)2023-03-12 18:29:03 Test Item Value Reference Range Interpretation Comments POCT GLU (test code = 0233194476) 168 mg/dL 70-110 H Lab Interpretation (test code = Abnormal 60163-3) [facility] GLUCOSE (AUTOMATED)2023-03-12 13:01:00 Test Item Value Reference Range Interpretation Comments POCT GLU (test code = 8177537004) 160 mg/dL 70-110 H Lab Interpretation (test code = Abnormal 16492-7) [facility] GLUCOSE (AUTOMATED)2023-03-12 13:01:00 Test Item Value Reference Range Interpretation Comments POCT GLU (test code = 5038503809) 160 mg/dL 70-110 H Lab Interpretation (test code = Abnormal 95033-5) [facility] WITH [id number] 09:37:32 Test Item Value Reference Range Interpretation Comments WBC (test code = 21.24 See_Comment H [Automated 4290-2) message] The sy stem which generated this result transmitted reference range : 4.20 - 10.70 10*3/?L. The reference range was not used to interpret this result as normal/abnormal . RBC (test code = 3.03 See_Comment L [Automated 789-8) message] The sy stem which generated this result transmitted reference range : 4.26 - 5.52 10*6/?L. The reference range was not used to interpret this result as normal/abnormal . HGB (test code = 8.6 g/dL 12.2-16.4 L 718-7) HCT (test code = 27.1 % 38.4-49.3 L 4544-3) MCV (test code = 89.4 fL 81.7-95.6 787-2) MCH (test code = 28.4 pg 26.1-32.7 785-6) MCHC (test code = 31.7 g/dL 31.2-35.0 786-4) RDW-SD (test code = 72.3 fL 38.5-51.6 H 72299-6) RDW-CV (test code = 22.2 % 12.1-15.4 H 788-0) PLT (test code = 86 See_Comment L [Automated 777-3) message] The sy stem which generated this result transmitted reference range : 150 - 328 10*3/ ?L. The reference r kyra was not used to interpret this result as normal/abnormal . MPV (test code = Not Measure d 72760-0) IPF % (test code = 20.3 % 1.2-10.7 H Platelet count 0424798772) measured by fluorescence method. NRBC/100 WBC (test 0.0 See_Comment [Automat ed code = 3532003914) message] The system which generated this result transmitted reference range : 0.0 - 10.0 /100 WBCs. The refer ence range was not u sed to interpret th is result as normal/abnormal . NRBC x10^3 (test code See_Comment [Auto mated = 1429192900) message] The s ystem which generated this result transmitted reference range : 10*3/?L. The reference range was not used to interpret this result as normal/abnormal . GRAN MAT (NEUT) % 84.3 % (test code = 770-8) IMM GRAN % (test code 1.00 % = 5832129685) LYMPH % (test code = 5.6 % 736-9) MONO % (test code = 6.8 % 5905-5) EOS % (test code = 2.2 % 713-8) BASO % (test code = 0.1 % 706-2) GRAN MAT x10^3(ANC) 17.88 10*3/uL 1.99-6.95 H (test code = 4535230946) IMM GRAN x10^3 (test 0.22 10*3/uL 0.00-0.06 H code = 8841834347) LYMPH x10^3 (test 1.19 10*3/uL 1.09-3.23 code = 731-0) MONO x10^3 (test code 1.45 10*3/uL 0.36-1.02 H = 742-7) EOS x10^3 (test code 0.47 10*3/uL 0.06-0.53 = 711-2) BASO x10^3 (test code 0.03 10*3/uL 0.01-0.09 = 704-7) BASO STIPPLING (test Present A code = 703-9) Lab Interpretation Abnormal (test code = 77435-8) [facility] WITH [id number] 09:37:32 Test Item Value Reference Range Interpretation Comments WBC (test code = 21.24 See_Comment H [Automated 6690-2) message] The sy stem which generated this result transmitted reference range : 4.20 - 10.70 10*3/?L. The reference range was not used to interpret this result as normal/abnormal . RBC (test code = 3.03 See_Comment L [Automated 069-8) message] The sy stem which generated this result transmitted reference range : 4.26 - 5.52 10*6/?L. The reference range was not used to interpret this result as normal/abnormal . HGB (test code = 8.6 g/dL 12.2-16.4 L 718-7) HCT (test code = 27.1 % 38.4-49.3 L 4544-3) MCV (test code = 89.4 fL 81.7-95.6 787-2) MCH (test code = 28.4 pg 26.1-32.7 785-6) MCHC (test code = 31.7 g/dL 31.2-35.0 786-4) RDW-SD (test code = 72.3 fL 38.5-51.6 H 94733-9) RDW-CV (test code = 22.2 % 12.1-15.4 H 788-0) PLT (test code = 86 See_Comment L [Automated 777-3) message] The sy stem which generated this result transmitted reference range : 150 - 328 10*3/ ?L. The reference r kyra was not used to interpret this result as normal/abnormal . MPV (test code = Not Measure d 93759-5) IPF % (test code = 20.3 % 1.2-10.7 H Platelet count 9323781381) measured by fluorescence method. NRBC/100 WBC (test 0.0 See_Comment [Automat ed code = 7899328524) message] The system which generated this result transmitted reference range : 0.0 - 10.0 /100 WBCs. The refer ence range was not u sed to interpret th is result as normal/abnormal . NRBC x10^3 (test code See_Comment [Auto mated = 4153093818) message] The s ystem which generated this result transmitted reference range : 10*3/?L. The reference range was not used to interpret this result as normal/abnormal . GRAN MAT (NEUT) % 84.3 % (test code = 770-8) IMM GRAN % (test code 1.00 % = 8280187746) LYMPH % (test code = 5.6 % 736-9) MONO % (test code = 6.8 % 5905-5) EOS % (test code = 2.2 % 713-8) BASO % (test code = 0.1 % 706-2) GRAN MAT x10^3(ANC) 17.88 10*3/uL 1.99-6.95 H (test code = 3531887658) IMM GRAN x10^3 (test 0.22 10*3/uL 0.00-0.06 H code = 6069749208) LYMPH x10^3 (test 1.19 10*3/uL 1.09-3.23 code = 731-0) MONO x10^3 (test code 1.45 10*3/uL 0.36-1.02 H = 742-7) EOS x10^3 (test code 0.47 10*3/uL 0.06-0.53 = 711-2) BASO x10^3 (test code 0.03 10*3/uL 0.01-0.09 = 704-7) BASO STIPPLING (test Present A code = 703-9) Lab Interpretation Abnormal (test code = 81658-3) [facility] Test Item Value Reference Range Interpretation Comments MAGNESIUM (test code = 3357891201) 1.7 mg/dL 1.7-2.4 Lab Interpretation (test code = Normal 92900-6) [facility]17 Test Item Value Reference Range Interpretation Comments PHOSPHORUS (test code = 6416525738) 3.8 mg/dL 2.5-5.0 Lab Interpretation (test code = Normal 73719-4) [facility]17 Test Item Value Reference Range Interpretation Comments MAGNESIUM (test code = 3727298558) 1.7 mg/dL 1.7-2.4 Lab Interpretation (test code = Normal 50545-6) [facility]:27[facility]17 Test Item Value Reference Range Interpretation Comments PHOSPHORUS (test code = 4932669402) 3.8 mg/dL 2.5-5.0 Lab Interpretation (test code = Normal 63162-9) [facility]16 Test Item Value Reference Range Interpretation Comments CALCIUM (test code = 7207375302) 8.0 mg/dL 8.6-10.6 L Lab Interpretation (test code = Abnormal 27488-5) [facility] (NA, K, CL, CO2, GLUCOSE, BUN, CREATININE, CA)2023-03-12 09:27:16 Test Item Value Reference Range Interpretation Comments NA (test code = 135 mmol/L 135-145 1488539128) K (test code = 3.5 mmol/L 3.5-5.0 4826745987) CL (test code = 102 mmol/L 98-108 0416692057) CO2 TOTAL (test code = 25 mmol/L 23-31 0024602285) AGAP (test code = 8 2-16 1484489415) BUN (test code = 43 mg/dL 7-23 H 3734886043) GLUCOSE (test code = 101 mg/dL 70-110 7490926662) CREATININE (test code = 2.44 mg/dL 0.60-1.25 H 9651447806) CALCIUM (test code = 8.0 mg/dL 8.6-10.6 L 3117043062) eGFR (test code = 27.1 mL/min/1.73m2 3405114160) MIKAYLA (test code = MIKAYLA) Association of Glomerular Filtration Rate (GFR) and Staging of Kidney Disease* + --+ --+ ------+| GFR (mL/min/1.73 m2) ?| With Kidney Damage ?| ?Without Kidney Damage+ --------+ --------+ +| ?>90 ?| ?Stage one ?| ? Normal ?+ ---+ ---+ -------+| ?60-89 ?| ?Stage two ?| ? Decreased GFR ? + --+ --+ ------+| ?30-59 ?| ?Stage three ?| ? Stage three ? + --+ --+ ------+| ?15-29 ?| ?Stage four ? | ? Stage four ?+ ---+ ---+ -------+| ?<15 (or dialysis) ? ?| ?Stage five ? | ? Stage five ?+ ---+ ---+ -------+ *Each stage assumes the associated GFR level has been in effect for at least three months. ?Stages 1 to 5, with or without kidney disease, indicate chronic kidney disease. Notes: Determination of stages one and two (with eGFR >59mL/min/1.73 m2) requires estimation of kidney damage for at least three months as defined by structural or functional abnormalities of the kidney, manifested by either:Pathological abnormalities or Markers of kidney damage (including abnormalities in the composition of the blood or urine or abnormalities in imaging tests). Lab Interpretation Abnormal (test code = 76331-9) [facility] Test Item Value Reference Range Interpretation Comments CALCIUM (test code = 6110678176) 8.0 mg/dL 8.6-10.6 L Lab Interpretation (test code = Abnormal 93685-9) [facility] METABOLIC PANEL (NA, K, CL, CO2, GLUCOSE, BUN, CREATININE, CA)2023-03-12 09:27:16 Test Item Value Reference Range Interpretation Comments NA (test code = 135 mmol/L 135-145 4901351808) K (test code = 3.5 mmol/L 3.5-5.0 7975174318) CL (test code = 102 mmol/L 98-108 7523588341) CO2 TOTAL (test code = 25 mmol/L 23-31 8905520163) AGAP (test code = 8 2-16 1595000121) BUN (test code = 43 mg/dL 7-23 H 3385117510) GLUCOSE (test code = 101 mg/dL 70-110 8462813385) CREATININE (test code = 2.44 mg/dL 0.60-1.25 H 2611778413) CALCIUM (test code = 8.0 mg/dL 8.6-10.6 L 5692697660) eGFR (test code = 27.1 mL/min/1.73m2 4426882573) MIKAYLA (test code = MIKAYLA) Association of Glomerular Filtration Rate (GFR) and Staging of Kidney Disease* + --+ --+ ------+| GFR (mL/min/1.73 m2) ?| With Kidney Damage ?| ?Without Kidney Damage+ --------+ --------+ +| ?>90 ?| ?Stage one ?| ? Normal ?+ ---+ ---+ -------+| ?60-89 ?| ?Stage two ?| ? Decreased GFR ? + --+ --+ ------+| ?30-59 ?| ?Stage three ?| ? Stage three ? + --+ --+ ------+| ?15-29 ?| ?Stage four ? | ? Stage four ?+ ---+ ---+ -------+| ?<15 (or dialysis) ? ?| ?Stage five ? | ? Stage five ?+ ---+ ---+ -------+ *Each stage assumes the associated GFR level has been in effect for at least three months. ?Stages 1 to 5, with or without kidney disease, indicate chronic kidney disease. Notes: Determination of stages one and two (with eGFR >59mL/min/1.73 m2) requires estimation of kidney damage for at least three months as defined by structural or functional abnormalities of the kidney, manifested by either:Pathological abnormalities or Markers of kidney damage (including abnormalities in the composition of the blood or urine or abnormalities in imaging tests). Lab Interpretation Abnormal (test code = 70076-1) [facility] Test Item Value Reference Range Interpretation Comments CALCIUM (test code = 8058313725) 8.0 mg/dL 8.6-10.6 L Lab Interpretation (test code = Abnormal 48189-1) [facility] GLUCOSE (AUTOMATED)2023-03-12 08:46:08 Test Item Value Reference Range Interpretation Comments POCT GLU (test code = 106 mg/dL 70-110 Notifi ed Provider [id number]) Lab Interpretation (test Normal code = 08497-0) [facility] GLUCOSE (AUTOMATED)2023-03-12 08:46:08 Test Item Value Reference Range Interpretation Comments POCT GLU (test code = 106 mg/dL 70-110 Notifi ed Provider [id number]) Lab Interpretation (test Normal code = 10843-7) [facility] GLUCOSE (AUTOMATED)2023-03-12 04:14:13 Test Item Value Reference Range Interpretation Comments POCT GLU (test code = 6341979602) 65 mg/dL 70-110 L Lab Interpretation (test code = Abnormal 15093-0) [facility] GLUCOSE (AUTOMATED)2023-03-12 04:14:13 Test Item Value Reference Range Interpretation Comments POCT GLU (test code = 1957108405) 65 mg/dL 70-110 L Lab Interpretation (test code = Abnormal 40547-8) [facility] GLUCOSE (AUTOMATED)2023-03-12 01:48:02 Test Item Value Reference Range Interpretation Comments POCT GLU (test code = 46 mg/dL 70-110 LL Notifi ed Provider [id number]) Lab Interpretation (test Abnormal code = 78580-6) [facility] GLUCOSE (AUTOMATED)2023-03-12 01:48:02 Test Item Value Reference Range Interpretation Comments POCT GLU (test code = 194 mg/dL 70-110 H Notifi ed Provider [id number]) Lab Interpretation (test Abnormal code = 77984-0) [facility] GLUCOSE (AUTOMATED)2023-03-12 01:48:02 Test Item Value Reference Range Interpretation Comments POCT GLU (test code = 46 mg/dL 70-110 LL Notifi ed Provider [id number]) Lab Interpretation (test Abnormal code = 35633-1) [facility] 01:48:02 Test Item Value Reference Range Interpretation Comments POCT GLU (test code = 194 mg/dL 70-110 H Notifi ed Provider [id number]) Lab Interpretation (test Abnormal code = 14419-9) [facility]23-[facility]-11 21:15:31 Test Item Value Reference Range Interpretation Comments POCT GLU (test code = 4001087327) 121 mg/dL 70-110 H Lab Interpretation (test code = Abnormal 54496-5) [facility] 21:15:31 Test Item Value Reference Range Interpretation Comments POCT GLU (test code = 4372460858) 121 mg/dL 70-110 H Lab Interpretation (test code = Abnormal 05149-4) [facility]11 17:47:38 Test Item Value Reference Range Interpretation Comments POCT GLU (test code = 7842010205) 159 mg/dL 70-110 H Lab Interpretation (test code = Abnormal 25000-5) [facility]11 17:47:38 Test Item Value Reference Range Interpretation Comments POCT GLU (test code = 0236259801) 159 mg/dL 70-110 H Lab Interpretation (test code = Abnormal 16131-0) [facility] 13:22:07 Test Item Value Reference Range Interpretation Comments POCT GLU (test code = 6058524169) 212 mg/dL 70-110 H Lab Interpretation (test code = Abnormal 95549-8) [facility] 13:22:07 Test Item Value Reference Range Interpretation Comments POCT GLU (test code = 6275384816) 212 mg/dL 70-110 H Lab Interpretation (test code = Abnormal 00920-1) [facility] 09:09:00 Test Item Value Reference Range Interpretation Comments POCT GLU (test code = 1176077308) 180 mg/dL 70-110 H Lab Interpretation (test code = Abnormal 17790-3) [facility] GLUCOSE (AUTOMATED)2023-03-11 09:09:00 Test Item Value Reference Range Interpretation Comments POCT GLU (test code = 3773252721) 180 mg/dL 70-110 H Lab Interpretation (test code = Abnormal 72643-1) [facility] GLUCOSE (AUTOMATED)2023-03-11 05:49:00 Test Item Value Reference Range Interpretation Comments POCT GLU (test code = 1806667217) 186 mg/dL 70-110 H Lab Interpretation (test code = Abnormal 08807-3) [facility] GLUCOSE (AUTOMATED)2023-03-11 05:49:00 Test Item Value Reference Range Interpretation Comments POCT GLU (test code = 2421994678) 186 mg/dL 70-110 H Lab Interpretation (test code = Abnormal 93227-0) [facility] GLUCOSE (AUTOMATED)2023-03-11 01:20:45 Test Item Value Reference Range Interpretation Comments POCT GLU (test code = 8632917171) 186 mg/dL 70-110 H Lab Interpretation (test code = Abnormal 18027-8) [facility] GLUCOSE (AUTOMATED)2023-03-11 01:20:45 Test Item Value Reference Range Interpretation Comments POCT GLU (test code = 6163500022) 186 mg/dL 70-110 H Lab Interpretation (test code = Abnormal 34827-0) [facility] GLUCOSE (AUTOMATED)2023-03-10 22:02:02 Test Item Value Reference Range Interpretation Comments POCT GLU (test code = 0793608171) 202 mg/dL 70-110 H Lab Interpretation (test code = Abnormal 65484-8) [facility] GLUCOSE (AUTOMATED)2023-03-10 22:02:02 Test Item Value Reference Range Interpretation Comments POCT GLU (test code = 7867623757) 202 mg/dL 70-110 H Lab Interpretation (test code = Abnormal 17966-0) [facility] (in units), 1 Units 2023-03-10 19:23:48 Test Item Value Reference Range Interpretation Comments Cross Match Result Compatible (test code = 4409) ISBT Blood Type Code 5100 (test code = 820615) Unit Blood Type (test O Pos code = 4410) Unit Number (test [id number] code = 4411) Blood Expiration Date & Time (test code = 775188) Status Information Issued (test code = 4412) Product Red Blood Cells Identification (test code = 4413) Product Code (test [id number] Performed at [facility] code = 4414) Laboratory Services [address] [address]Yobv Free: [phone] A No. [id number] [facility] Packed RBC (in units), 1 Units 2023-03-10 19:23:48 Test Item Value Reference Range Interpretation Comments Cross Match Result Compatible (test code = 4409) ISBT Blood Type Code 5100 (test code = 909569) Unit Blood Type (test O Pos code = 4410) Unit Number (test [id number] code = 4411) Blood Expiration Date & Time (test code = 633345) Status Information Issued (test code = 4412) Product Red Blood Cells Identification (test code = 4413) Product Code (test [id number] Performed at [facility] code = 4414) Laboratory Services [address] [address]Dabq Free: [phone] A No. [id number] [facility] Packed RBC (in units), 1 Units 2023-03-10 19:23:48 Test Item Value Reference Range Interpretation Comments Cross Match Result Compatible (test code = 4409) ISBT Blood Type Code 5100 (test code = 066462) Unit Blood Type (test O Pos code = 4410) Unit Number (test [id number] code = 4411) Blood Expiration Date & Time (test code = 562709) Status Information Issued (test code = 4412) Product Red Blood Cells Identification (test code = 4413) Product Code (test [id number] Performed at [facility] code = 4414) Laboratory Services [address] [address]Qiww Free: [phone] A No. [id number] [facility] GLUCOSE (AUTOMATED)2023-03-10 17:19:28 Test Item Value Reference Range Interpretation Comments POCT GLU (test code = 9967871155) 172 mg/dL 70-110 H Lab Interpretation (test code = Abnormal 90674-7) [facility] GLUCOSE (AUTOMATED)2023-03-10 17:19:28 Test Item Value Reference Range Interpretation Comments POCT GLU (test code = 2922389819) 172 mg/dL 70-110 H Lab Interpretation (test code = Abnormal 41677-5) [facility] GLUCOSE (AUTOMATED)2023-03-10 12:50:41 Test Item Value Reference Range Interpretation Comments POCT GLU (test code = 3590513745) 166 mg/dL 70-110 H Lab Interpretation (test code = Abnormal 10297-2) [facility] GLUCOSE (AUTOMATED)2023-03-10 12:50:41 Test Item Value Reference Range Interpretation Comments POCT GLU (test code = 7247496479) 166 mg/dL 70-110 H Lab Interpretation (test code = Abnormal 30718-0) [facility] GLUCOSE (AUTOMATED)2023-03-10 05:17:34 Test Item Value Reference Range Interpretation Comments POCT GLU (test code = 1906801613) 190 mg/dL 70-110 H Lab Interpretation (test code = Abnormal 30052-1) [facility] GLUCOSE (AUTOMATED)2023-03-10 05:17:34 Test Item Value Reference Range Interpretation Comments POCT GLU (test code = 9469187731) 190 mg/dL 70-110 H Lab Interpretation (test code = Abnormal 20233-6) [facility] RBC (in units), 1 Units 2023-03-10 02:33:25 Test Item Value Reference Range Interpretation Comments Cross Match Result Compatible (test code = 4409) ISBT Blood Type Code 5100 (test code = 171938) Unit Blood Type (test O Pos code = 4410) Unit Number (test [id number] code = 4411) Blood Expiration Date & Time (test code = 633702) Status Information Issued (test code = 4412) Product Red Blood Cells Identification (test code = 4413) Product Code (test [id number] Performed at [facility] code = 4414) Laboratory Services [facility] Blood [address] [place] [address]Gzva Free: [phone] A No. [id number] [facility] P[facility] RBC (in units), 1 Units 2023-03-10 02:33:25 Test Item Value Reference Range Interpretation Comments Cross Match Result Compatible (test code = 4409) ISBT Blood Type Code 5100 (test code = 725134) Unit Blood Type (test O Pos code = 4410) Unit Number (test [id number] code = 4411) Blood Expiration Date & Time (test code = 510186) Status Information Issued (test code = 4412) Product Red Blood Cells Identification (test code = 4413) Product Code (test [id number] Performed at [facility] code = 4414) Laboratory Services [facility] Blood [address] [place] [address]Xxsa Free: [phone] A No. [id number] [facility] GLUCOSE (AUTOMATED)2023-03-10 01:07:18 Test Item Value Reference Range Interpretation Comments POCT GLU (test code = 7624382482) 218 mg/dL 70-110 H Lab Interpretation (test code = Abnormal 71369-3) [facility] GLUCOSE (AUTOMATED)2023-03-10 01:07:18 Test Item Value Reference Range Interpretation Comments POCT GLU (test code = 8969872986) 218 mg/dL 70-110 H Lab Interpretation (test code = Abnormal 77938-1) [facility] GLUCOSE (AUTOMATED)2023-03-09 21:50:36 Test Item Value Reference Range Interpretation Comments POCT GLU (test code = 2506663823) 238 mg/dL 70-110 H Lab Interpretation (test code = Abnormal 27621-8) [facility] GLUCOSE (AUTOMATED)2023-03-09 21:50:36 Test Item Value Reference Range Interpretation Comments POCT GLU (test code = 4731245627) 238 mg/dL 70-110 H Lab Interpretation (test code = Abnormal 94832-0) [facility] [id number] 17:56:39 Test Item Value Reference Range Interpretation Comments WBC (test code = 18.79 See_Comment H [Automated message] 6690-2) The system [employer] generated this result transmitted ref erence range: 4.20 - 1 0.70 10*3/?L. The reference range was not used to int erpret this result as normal/abnormal . RBC (test code = 789-8) 2.48 See_Comment L [Au tomated message] The system [employer] generated this result transmitted ref erence range: 4.26 - 5 .52 10*6/?L. The reference range was not used to int erpret this result as normal/abnormal . HGB (test code = 718-7) 7.0 g/dL 12.2-16.4 L HCT (test code = 23.0 % 38.4-49.3 L 4544-3) MCH (test code = 785-6) 28.2 pg 26.1-32.7 MCV (test code = 787-2) 92.7 fL 81.7-95.6 MCHC (test code = 30.4 g/dL 31.2-35.0 L 786-4) PLT (test code = 777-3) 58 See_Comment L [Au tomated message] The system [employer] generated this result transmitted ref erence range: 150 - 32 8 10*3/?L. The reference range was not used to int erpret this result as normal/abnormal . MPV (test code = Not Measure d 47671-5) RDW-CV (test code = 23.4 % 12.1-15.4 H 788-0) RDW-SD (test code = 77.1 fL 38.5-51.6 H 82377-3) NRBC x10^3 (test code = See_Comment [Au tomated message] 8777296295) The system [employer] generated this result transmitted ref erence range: 10*3/?L. The reference range was not used to int erpret this result as normal/abnormal . NRBC/100 WBC (test code 0.0 See_Comment [Au tomated message] = 6560633079) The system [facility] generated this result transmitted ref erence range: 0.0 - 10 .0 /100 WBCs. The reference range was not used to int erpret this result as normal/abnormal . IPF % (test code = 16.5 % 1.2-10.7 H Platelet count 1245813987) measured by fluorescence me thod. Lab Interpretation Abnormal (test code = 85480-5) [facility] [id number] 17:56:39 Test Item Value Reference Range Interpretation Comments WBC (test code = 18.79 See_Comment H [Automated message] 9590-2) The system [employer] generated this result transmitted ref erence range: 4.20 - 1 0.70 10*3/?L. The reference range was not used to int erpret this result as normal/abnormal . RBC (test code = 789-8) 2.48 See_Comment L [Au tomated message] The system [employer] generated this result transmitted ref erence range: 4.26 - 5 .52 10*6/?L. The reference range was not used to int erpret this result as normal/abnormal . HGB (test code = 718-7) 7.0 g/dL 12.2-16.4 L HCT (test code = 23.0 % 38.4-49.3 L 4544-3) MCH (test code = 785-6) 28.2 pg 26.1-32.7 MCV (test code = 787-2) 92.7 fL 81.7-95.6 MCHC (test code = 30.4 g/dL 31.2-35.0 L 786-4) PLT (test code = 777-3) 58 See_Comment L [Au tomated message] The system [employer] generated this result transmitted ref erence range: 150 - 32 8 10*3/?L. The reference range was not used to int erpret this result as normal/abnormal . MPV (test code = Not Measure d 00032-7) RDW-CV (test code = 23.4 % 12.1-15.4 H 788-0) RDW-SD (test code = 77.1 fL 38.5-51.6 H 70326-5) NRBC x10^3 (test code = See_Comment [Au tomated message] 6896206610) The system [employer] generated this result transmitted ref erence range: 10*3/?L. The reference range was not used to int erpret this result as normal/abnormal . NRBC/100 WBC (test code 0.0 See_Comment [Au tomated message] = 8180044744) The system [employer] generated this result transmitted ref erence range: 0.0 - 10 .0 /100 WBCs. The reference range was not used to int erpret this result as normal/abnormal . IPF % (test code = 16.5 % 1.2-10.7 H Platelet count 1554141380) measured by fluorescence me thod. Lab Interpretation Abnormal (test code = 01814-5) [facility] GLUCOSE (AUTOMATED)2023-03-09 17:22:56 Test Item Value Reference Range Interpretation Comments POCT GLU (test code = 0826463412) 254 mg/dL 70-110 H Lab Interpretation (test code = Abnormal 40299-0) [facility] GLUCOSE (AUTOMATED)2023-03-09 17:22:56 Test Item Value Reference Range Interpretation Comments POCT GLU (test code = 2558986412) 254 mg/dL 70-110 H Lab Interpretation (test code = Abnormal 03096-3) [facility]2023-03-09 15:58:52 Test Item Value Reference Range Interpretation Comments HBsAB (test code = Negative 1675517321) HBsAb 0.20 mIU/mL Semi-Quantitative (test code = 8202598045) MIKAYLA (test code = Interpretation: MIKAYLA) ?Hepatitis B Surface Antibody ? Negative - Patient is considered to be not immune to infection with HBV. ? ? Positive - Anti-HBs detected at greater than or equal to 12 mIU/mL. ?Patient is considered to be immune to infection with HBV. ? [facility] B Surface Antibody (HBsAb)2023-03-09 15:58:52 Test Item Value Reference Range Interpretation Comments HBsAB (test code = Negative 0070951145) HBsAb 0.20 mIU/mL Semi-Quantitative (test code = 0113597538) MIKAYLA (test code = Interpretation: MIKAYLA) ?Hepatitis B Surface Antibody ? Negative - Patient is considered to be not immune to infection with HBV. ? ? Positive - Anti-HBs detected at greater than or equal to 12 mIU/mL. ?Patient is considered to be immune to infection with HBV. ? [facility] B Surface Antibody (HBsAb)2023-03-09 15:58:52 Test Item Value Reference Range Interpretation Comments HBsAB (test code = Negative 1120028191) HBsAb 0.20 mIU/mL Semi-Quantitative (test code = 2207030671) MIKAYLA (test code = Interpretation: MIKAYLA) ?Hepatitis B Surface Antibody ? Negative - Patient is considered to be not immune to infection with HBV. ? ? Positive - Anti-HBs detected at greater than or equal to 12 mIU/mL. ?Patient is considered to be immune to infection with HBV. ? [facility] GLUCOSE (AUTOMATED)2023-03-09 14:08:10 Test Item Value Reference Range Interpretation Comments POCT GLU (test code = 4912585862) 222 mg/dL 70-110 H Lab Interpretation (test code = Abnormal 90218-8) [facility] GLUCOSE (AUTOMATED)2023-03-09 14:08:10 Test Item Value Reference Range Interpretation Comments POCT GLU (test code = 4690259268) 222 mg/dL 70-110 H Lab Interpretation (test code = Abnormal 85292-0) [facility] B Surface Antigen (HBsAg)2023-03-09 13:02:02 Test Item Value Reference Range Interpretation Comments HBsAg Semi-Quantitative (test code = 0.03 Negative 5195-3) [facility] B Surface Antigen (HBsAg)2023-03-09 13:02:02 Test Item Value Reference Range Interpretation Comments HBsAg Semi-Quantitative (test code = 0.03 Negative 5195-3) [facility] B Surface Antigen (HBsAg)2023-03-09 13:02:02 Test Item Value Reference Range Interpretation Comments HBsAg Semi-Quantitative (test code = 0.03 Negative 5195-3) [facility] WITH [id number] 10:32:55 Test Item Value Reference Range Interpretation Comments WBC (test code = 18.93 See_Comment H [Automated 6690-2) message] The sy stem which generated this result transmitted reference range : 4.20 - 10.70 10*3/?L. The reference range was not used to interpret this result as normal/abnormal . RBC (test code = 2.57 See_Comment L [Automated 789-8) message] The sy stem which generated this result transmitted reference range : 4.26 - 5.52 10*6/?L. The reference range was not used to interpret this result as normal/abnormal . HGB (test code = 7.4 g/dL 12.2-16.4 L 718-7) HCT (test code = 23.7 % 38.4-49.3 L 4544-3) MCV (test code = 92.2 fL 81.7-95.6 787-2) MCH (test code = 28.8 pg 26.1-32.7 785-6) MCHC (test code = 31.2 g/dL 31.2-35.0 786-4) RDW-SD (test code = 77.2 fL 38.5-51.6 H 13489-8) RDW-CV (test code = 23.9 % 12.1-15.4 H 788-0) PLT (test code = 58 See_Comment L [Automated 777-3) message] The sy stem which generated this result transmitted reference range : 150 - 328 10*3/ ?L. The reference r kyra was not used to interpret this result as normal/abnormal . MPV (test code = Not Measure d 25647-6) IPF % (test code = 17.5 % 1.2-10.7 H Platelet count 9013090738) measured by fluorescence method. NRBC/100 WBC (test 0.1 See_Comment [Automat ed code = 0803994809) message] The system which generated this result transmitted reference range : 0.0 - 10.0 /100 WBCs. The refer ence range was not u sed to interpret th is result as normal/abnormal . NRBC x10^3 (test code 0.02 See_Comment [Auto mated = 3265810580) message] The s ystem which generated this result transmitted reference range : 10*3/?L. The reference range was not used to interpret this result as normal/abnormal . GRAN MAT (NEUT) % 88.3 % (test code = 770-8) IMM GRAN % (test code 1.30 % = 5267117405) LYMPH % (test code = 5.0 % 736-9) MONO % (test code = 3.8 % 5905-5) EOS % (test code = 1.5 % 713-8) BASO % (test code = 0.1 % 706-2) GRAN MAT x10^3(ANC) 16.72 10*3/uL 1.99-6.95 H (test code = 8954454771) IMM GRAN x10^3 (test 0.25 10*3/uL 0.00-0.06 H code = 8826130909) LYMPH x10^3 (test 0.94 10*3/uL 1.09-3.23 L code = 731-0) MONO x10^3 (test code 0.72 10*3/uL 0.36-1.02 = 742-7) EOS x10^3 (test code 0.29 10*3/uL 0.06-0.53 = 711-2) BASO x10^3 (test code 0.01-0.09 = 704-7) BRADLEY CELLS (test code 2+ See_Comment A [Auto mated = 8490-9) message] The sy stem which generated this result transmitted reference range : (none). The reference range was not used to interpret this result as normal/abnormal . POLYCHROMASIA (test 2+ See_Comment [Automa che code = 71308-3) message] The system which generated this result transmitted reference range : 2+. The referen ce range was not u sed to interpret th is result as normal/abnormal . Lab Interpretation Abnormal (test code = 08881-4) [facility] WITH [id number] 10:32:55 Test Item Value Reference Range Interpretation Comments WBC (test code = 18.93 See_Comment H [Automated 4790-2) message] The sy stem which generated this result transmitted reference range : 4.20 - 10.70 10*3/?L. The reference range was not used to interpret this result as normal/abnormal . RBC (test code = 2.57 See_Comment L [Automated 599-8) message] The sy stem which generated this result transmitted reference range : 4.26 - 5.52 10*6/?L. The reference range was not used to interpret this result as normal/abnormal . HGB (test code = 7.4 g/dL 12.2-16.4 L 718-7) HCT (test code = 23.7 % 38.4-49.3 L 4544-3) MCV (test code = 92.2 fL 81.7-95.6 787-2) MCH (test code = 28.8 pg 26.1-32.7 785-6) MCHC (test code = 31.2 g/dL 31.2-35.0 786-4) RDW-SD (test code = 77.2 fL 38.5-51.6 H 08871-2) RDW-CV (test code = 23.9 % 12.1-15.4 H 788-0) PLT (test code = 58 See_Comment L [Automated 777-3) message] The sy stem which generated this result transmitted reference range : 150 - 328 10*3/ ?L. The reference r kyra was not used to interpret this result as normal/abnormal . MPV (test code = Not Measure d 77988-8) IPF % (test code = 17.5 % 1.2-10.7 H Platelet count 9663738135) measured by fluorescence method. NRBC/100 WBC (test 0.1 See_Comment [Automat ed code = 6515703564) message] The system which generated this result transmitted reference range : 0.0 - 10.0 /100 WBCs. The refer ence range was not u sed to interpret th is result as normal/abnormal . NRBC x10^3 (test code 0.02 See_Comment [Auto mated = 4892721631) message] The s ystem which generated this result transmitted reference range : 10*3/?L. The reference range was not used to interpret this result as normal/abnormal . GRAN MAT (NEUT) % 88.3 % (test code = 770-8) IMM GRAN % (test code 1.30 % = 5965420318) LYMPH % (test code = 5.0 % 736-9) MONO % (test code = 3.8 % 5905-5) EOS % (test code = 1.5 % 713-8) BASO % (test code = 0.1 % 706-2) GRAN MAT x10^3(ANC) 16.72 10*3/uL 1.99-6.95 H (test code = 5701582155) IMM GRAN x10^3 (test 0.25 10*3/uL 0.00-0.06 H code = 3689034811) LYMPH x10^3 (test 0.94 10*3/uL 1.09-3.23 L code = 731-0) MONO x10^3 (test code 0.72 10*3/uL 0.36-1.02 = 742-7) EOS x10^3 (test code 0.29 10*3/uL 0.06-0.53 = 711-2) BASO x10^3 (test code 0.01-0.09 = 704-7) BRADLEY CELLS (test code 2+ See_Comment A [Auto mated = 7790-9) message] The sy stem which generated this result transmitted reference range : (none). The reference range was not used to interpret this result as normal/abnormal . POLYCHROMASIA (test 2+ See_Comment [Automa che code = 79710-9) message] The system which generated this result transmitted reference range : 2+. The referen ce range was not u sed to interpret th is result as normal/abnormal . Lab Interpretation Abnormal (test code = 43792-6) [facility]2023-07-08 10:07:32 Test Item Value Reference Range Interpretation Comments MAGNESIUM (test code = 3954195373) 2.2 mg/dL 1.7-2.4 Lab Interpretation (test code = Normal 28948-6) [facility] Test Item Value Reference Range Interpretation Comments PHOSPHORUS (test code = 9717304692) 3.8 mg/dL 2.5-5.0 Lab Interpretation (test code = Normal 75615-2) [facility]2023-07-08 10:07:32 Test Item Value Reference Range Interpretation Comments MAGNESIUM (test code = 2469604808) 2.2 mg/dL 1.7-2.4 Lab Interpretation (test code = Normal 34321-9) [facility]:07[facility] Test Item Value Reference Range Interpretation Comments PHOSPHORUS (test code = 5303918782) 3.8 mg/dL 2.5-5.0 Lab Interpretation (test code = Normal 22658-8) [facility] METABOLIC PANEL (NA, K, CL, CO2, GLUCOSE, BUN, CREATININE, CA)2023-03-09 10:07:27 Test Item Value Reference Range Interpretation Comments NA (test code = 139 mmol/L 135-145 9010446144) K (test code = 4.2 mmol/L 3.5-5.0 6714376245) CL (test code = 110 mmol/L 98-108 H 0579772571) CO2 TOTAL (test code = 17 mmol/L 23-31 L 7311510530) AGAP (test code = 12 2-16 4263340586) BUN (test code = 52 mg/dL 7-23 H 9665845101) GLUCOSE (test code = 190 mg/dL 70-110 H 5015808424) CREATININE (test code = 3.19 mg/dL 0.60-1.25 H 5680004255) CALCIUM (test code = 7.3 mg/dL 8.6-10.6 L 4011918814) eGFR (test code = 19.9 mL/min/1.73m2 2086845992) MIKAYLA (test code = MIKAYLA) Association of Glomerular Filtration Rate (GFR) and Staging of Kidney Disease* + --+ --+ ------+| GFR (mL/min/1.73 m2) ?| With Kidney Damage ?| ?Without Kidney Damage+ --------+ --------+ +| ?>90 ?| ?Stage one ?| ? Normal ?+ ---+ ---+ -------+| ?60-89 ?| ?Stage two ?| ? Decreased GFR ? + --+ --+ ------+| ?30-59 ?| ?Stage three ?| ? Stage three ? + --+ --+ ------+| ?15-29 ?| ?Stage four ? | ? Stage four ?+ ---+ ---+ -------+| ?<15 (or dialysis) ? ?| ?Stage five ? | ? Stage five ?+ ---+ ---+ -------+ *Each stage assumes the associated GFR level has been in effect for at least three months. ?Stages 1 to 5, with or without kidney disease, indicate chronic kidney disease. Notes: Determination of stages one and two (with eGFR >59mL/min/1.73 m2) requires estimation of kidney damage for at least three months as defined by structural or functional abnormalities of the kidney, manifested by either:Pathological abnormalities or Markers of kidney damage (including abnormalities in the composition of the blood or urine or abnormalities in imaging tests). Lab Interpretation Abnormal (test code = 16349-4) [facility] METABOLIC PANEL (NA, K, CL, CO2, GLUCOSE, BUN, CREATININE, CA)2023-03-09 10:07:27 Test Item Value Reference Range Interpretation Comments NA (test code = 139 mmol/L 135-145 9396222375) K (test code = 4.2 mmol/L 3.5-5.0 2164027630) CL (test code = 110 mmol/L 98-108 H 1163837321) CO2 TOTAL (test code = 17 mmol/L 23-31 L 1090110685) AGAP (test code = 12 2-16 0203870048) BUN (test code = 52 mg/dL 7-23 H 5383821719) GLUCOSE (test code = 190 mg/dL 70-110 H 7334990015) CREATININE (test code = 3.19 mg/dL 0.60-1.25 H 1899900108) CALCIUM (test code = 7.3 mg/dL 8.6-10.6 L 7031593826) eGFR (test code = 19.9 mL/min/1.73m2 5942769873) MIKAYLA (test code = MIKAYLA) Association of Glomerular Filtration Rate (GFR) and Staging of Kidney Disease* + --+ --+ ------+| GFR (mL/min/1.73 m2) ?| With Kidney Damage ?| ?Without Kidney Damage+ --------+ --------+ +| ?>90 ?| ?Stage one ?| ? Normal ?+ ---+ ---+ -------+| ?60-89 ?| ?Stage two ?| ? Decreased GFR ? + --+ --+ ------+| ?30-59 ?| ?Stage three ?| ? Stage three ? + --+ --+ ------+| ?15-29 ?| ?Stage four ? | ? Stage four ?+ ---+ ---+ -------+| ?<15 (or dialysis) ? ?| ?Stage five ? | ? Stage five ?+ ---+ ---+ -------+ *Each stage assumes the associated GFR level has been in effect for at least three months. ?Stages 1 to 5, with or without kidney disease, indicate chronic kidney disease. Notes: Determination of stages one and two (with eGFR >59mL/min/1.73 m2) requires estimation of kidney damage for at least three months as defined by structural or functional abnormalities of the kidney, manifested by either:Pathological abnormalities or Markers of kidney damage (including abnormalities in the composition of the blood or urine or abnormalities in imaging tests). Lab Interpretation Abnormal (test code = 10358-1) [facility] Lactic [id number] 09:36:32 Test Item Value Reference Range Interpretation Comments PH (test code = 2) 7.38 7.35-7.45 PCO2 (test code = 32 See_Comment L [Automate d 2026993978) message] The sy stem which generated this result transmitted reference range : 35 - 45 mmHg. The reference range was not used to interpret this result as normal/abnormal . PO2 (test code = 123 See_Comment H [Automated 9654044817) message] The sy stem which generated this result transmitted reference range : 80 - 100 mmHg. The reference range was not used to interpret this result as normal/abnormal . HCO3 (test code = 18 See_Comment L [Automate d 1655132738) message] The sy stem which generated this result transmitted reference range : 22 - 26 mEq/L. The reference range was not used to interpret this result as normal/abnormal . BE (test code = -6.2 See_Comment L [Automated 9791421098) message] The sy stem which generated this result transmitted reference range : -3.0 - 3.0 mEq/ L. The reference r kyra was not used to interpret this result as normal/abnormal . THB (test code = 9.1 g/dL 13.5-18.0 L 6190078826) %O2HB (test code = 97.2 % 94.0-99.0 9359694566) %COHB ART (test code = 1.3 % 0.0-1.5 3291717078) %METHB ART (test code = 0.1 % 0.4-1.5 L 1465583264) VOL%O2 ART (test code = 12.7 % 15.0-23.0 L 6423039250) NA (test code = 138 mmol/L 135-145 6525579996) K+ (test code = 4.3 mmol/L 3.5-5.0 8269616803) AC CA IONZ (test code = 4.40 mg/dL 4.50-5.30 L 8088998047) GLUCOSE (test code = 207 mg/dL 70-110 H 6144063523) LACTIC ACID (test code 0.97 mmol/L 0.50-2.20 = 1121039341) Lab Interpretation Abnormal (test code = 96302-3) [facility] Lactic [id number] 09:36:32 Test Item Value Reference Range Interpretation Comments PH (test code = 2) 7.38 7.35-7.45 PCO2 (test code = 32 See_Comment L [Automate d 2102046138) message] The sy stem which generated this result transmitted reference range : 35 - 45 mmHg. The reference range was not used to interpret this result as normal/abnormal . PO2 (test code = 123 See_Comment H [Automated 1483003306) message] The sy stem which generated this result transmitted reference range : 80 - 100 mmHg. The reference range was not used to interpret this result as normal/abnormal . HCO3 (test code = 18 See_Comment L [Automate d 9515606862) message] The sy stem which generated this result transmitted reference range : 22 - 26 mEq/L. The reference range was not used to interpret this result as normal/abnormal . BE (test code = -6.2 See_Comment L [Automated 4140396962) message] The sy stem which generated this result transmitted reference range : -3.0 - 3.0 mEq/ L. The reference r kyra was not used to interpret this result as normal/abnormal . THB (test code = 9.1 g/dL 13.5-18.0 L 0317386409) %O2HB (test code = 97.2 % 94.0-99.0 8576141847) %COHB ART (test code = 1.3 % 0.0-1.5 3400770125) %METHB ART (test code = 0.1 % 0.4-1.5 L 5318186291) VOL%O2 ART (test code = 12.7 % 15.0-23.0 L 4497328229) NA (test code = 138 mmol/L 135-145 4374833516) K+ (test code = 4.3 mmol/L 3.5-5.0 1781383173) AC CA IONZ (test code = 4.40 mg/dL 4.50-5.30 L 6967529604) GLUCOSE (test code = 207 mg/dL 70-110 H 9904510252) LACTIC ACID (test code 0.97 mmol/L 0.50-2.20 = 2886204245) Lab Interpretation Abnormal (test code = 34863-9) [facility] Lactic [id number] 09:36:32 Test Item Value Reference Range Interpretation Comments PH (test code = 2) 7.38 7.35-7.45 PCO2 (test code = 32 See_Comment L [Automate d 2320266948) message] The sy stem which generated this result transmitted reference range : 35 - 45 mmHg. The reference range was not used to interpret this result as normal/abnormal . PO2 (test code = 123 See_Comment H [Automated 6672180914) message] The sy stem which generated this result transmitted reference range : 80 - 100 mmHg. The reference range was not used to interpret this result as normal/abnormal . HCO3 (test code = 18 See_Comment L [Automate d 0175009064) message] The sy stem which generated this result transmitted reference range : 22 - 26 mEq/L. The reference range was not used to interpret this result as normal/abnormal . BE (test code = -6.2 See_Comment L [Automated 3981695788) message] The sy stem which generated this result transmitted reference range : -3.0 - 3.0 mEq/ L. The reference r kyra was not used to interpret this result as normal/abnormal . THB (test code = 9.1 g/dL 13.5-18.0 L 2207728753) %O2HB (test code = 97.2 % 94.0-99.0 9007177090) %COHB ART (test code = 1.3 % 0.0-1.5 2500953237) %METHB ART (test code = 0.1 % 0.4-1.5 L 7596728825) VOL%O2 ART (test code = 12.7 % 15.0-23.0 L 8807233487) NA (test code = 138 mmol/L 135-145 4177904242) K+ (test code = 4.3 mmol/L 3.5-5.0 7816922001) AC CA IONZ (test code = 4.40 mg/dL 4.50-5.30 L 4206346910) GLUCOSE (test code = 207 mg/dL 70-110 H 6435685339) LACTIC ACID (test code 0.97 mmol/L 0.50-2.20 = 7761198784) Lab Interpretation Abnormal (test code = 55191-9) [facility] GLUCOSE (AUTOMATED)2023-03-09 06:22:36 Test Item Value Reference Range Interpretation Comments POCT GLU (test code = 7575571575) 179 mg/dL 70-110 H Lab Interpretation (test code = Abnormal 45773-2) [facility] GLUCOSE (AUTOMATED)2023-03-09 06:22:36 Test Item Value Reference Range Interpretation Comments POCT GLU (test code = 7845886871) 179 mg/dL 70-110 H Lab Interpretation (test code = Abnormal 73924-4) [facility] WITH [id number] 02:48:02 Test Item Value Reference Range Interpretation Comments WBC (test code = 21.23 See_Comment H [Automated 6690-2) message] The sy stem which generated this result transmitted reference range : 4.20 - 10.70 10*3/?L. The reference range was not used to interpret this result as normal/abnormal . RBC (test code = 2.74 See_Comment L [Automated 789-8) message] The sy stem which generated this result transmitted reference range : 4.26 - 5.52 10*6/?L. The reference range was not used to interpret this result as normal/abnormal . HGB (test code = 7.7 g/dL 12.2-16.4 L 718-7) HCT (test code = 25.5 % 38.4-49.3 L 4544-3) MCV (test code = 93.1 fL 81.7-95.6 787-2) MCH (test code = 28.1 pg 26.1-32.7 785-6) MCHC (test code = 30.2 g/dL 31.2-35.0 L 786-4) RDW-SD (test code = 78.2 fL 38.5-51.6 H 77434-1) RDW-CV (test code = 24.0 % 12.1-15.4 H 788-0) PLT (test code = 59 See_Comment L [Automated 777-3) message] The sy stem which generated this result transmitted reference range : 150 - 328 10*3/ ?L. The reference r kyra was not used to interpret this result as normal/abnormal . MPV (test code = Not Measure d 27650-6) IPF % (test code = 18.0 % 1.2-10.7 H Platelet count 8397116715) measured by fluorescence method. NRBC/100 WBC (test 0.1 See_Comment [Automat ed code = 7570586586) message] The system which generated this result transmitted reference range : 0.0 - 10.0 /100 WBCs. The refer ence range was not u sed to interpret th is result as normal/abnormal . NRBC x10^3 (test code 0.02 See_Comment [Auto mated = 4388260949) message] The s ystem which generated this result transmitted reference range : 10*3/?L. The reference range was not used to interpret this result as normal/abnormal . GRAN MAT (NEUT) % 88.4 % (test code = 770-8) IMM GRAN % (test code 1.10 % = 1606719911) LYMPH % (test code = 5.4 % 736-9) MONO % (test code = 3.9 % 5905-5) EOS % (test code = 1.1 % 713-8) BASO % (test code = 0.1 % 706-2) GRAN MAT x10^3(ANC) 18.77 10*3/uL 1.99-6.95 H (test code = 2362488432) IMM GRAN x10^3 (test 0.23 10*3/uL 0.00-0.06 H code = 7030523362) LYMPH x10^3 (test 1.15 10*3/uL 1.09-3.23 code = 731-0) MONO x10^3 (test code 0.82 10*3/uL 0.36-1.02 = 742-7) EOS x10^3 (test code 0.23 10*3/uL 0.06-0.53 = 711-2) BASO x10^3 (test code 0.03 10*3/uL 0.01-0.09 = 704-7) BASO STIPPLING (test Present A code = 703-9) Lab Interpretation Abnormal (test code = 30662-7) [facility] WITH [id number] 02:48:02 Test Item Value Reference Range Interpretation Comments WBC (test code = 21.23 See_Comment H [Automated 6690-2) message] The sy stem which generated this result transmitted reference range : 4.20 - 10.70 10*3/?L. The reference range was not used to interpret this result as normal/abnormal . RBC (test code = 2.74 See_Comment L [Automated 789-8) message] The sy stem which generated this result transmitted reference range : 4.26 - 5.52 10*6/?L. The reference range was not used to interpret this result as normal/abnormal . HGB (test code = 7.7 g/dL 12.2-16.4 L 718-7) HCT (test code = 25.5 % 38.4-49.3 L 4544-3) MCV (test code = 93.1 fL 81.7-95.6 787-2) MCH (test code = 28.1 pg 26.1-32.7 785-6) MCHC (test code = 30.2 g/dL 31.2-35.0 L 786-4) RDW-SD (test code = 78.2 fL 38.5-51.6 H 38783-6) RDW-CV (test code = 24.0 % 12.1-15.4 H 788-0) PLT (test code = 59 See_Comment L [Automated 777-3) message] The sy stem which generated this result transmitted reference range : 150 - 328 10*3/ ?L. The reference r kyra was not used to interpret this result as normal/abnormal . MPV (test code = Not Measure d 79660-3) IPF % (test code = 18.0 % 1.2-10.7 H Platelet count 0267708939) measured by fluorescence method. NRBC/100 WBC (test 0.1 See_Comment [Automat ed code = 9029771749) message] The system which generated this result transmitted reference range : 0.0 - 10.0 /100 WBCs. The refer ence range was not u sed to interpret th is result as normal/abnormal . NRBC x10^3 (test code 0.02 See_Comment [Auto mated = 9526550156) message] The s ystem which generated this result transmitted reference range : 10*3/?L. The reference range was not used to interpret this result as normal/abnormal . GRAN MAT (NEUT) % 88.4 % (test code = 770-8) IMM GRAN % (test code 1.10 % = 4337180864) LYMPH % (test code = 5.4 % 736-9) MONO % (test code = 3.9 % 5905-5) EOS % (test code = 1.1 % 713-8) BASO % (test code = 0.1 % 706-2) GRAN MAT x10^3(ANC) 18.77 10*3/uL 1.99-6.95 H (test code = 3236185628) IMM GRAN x10^3 (test 0.23 10*3/uL 0.00-0.06 H code = 2171815012) LYMPH x10^3 (test 1.15 10*3/uL 1.09-3.23 code = 731-0) MONO x10^3 (test code 0.82 10*3/uL 0.36-1.02 = 742-7) EOS x10^3 (test code 0.23 10*3/uL 0.06-0.53 = 711-2) BASO x10^3 (test code 0.03 10*3/uL 0.01-0.09 = 704-7) BASO STIPPLING (test Present A code = 703-9) Lab Interpretation Abnormal (test code = 78980-1) [facility]NA, K, CL, CO2, GLUCOSE, BUN, CREATININE, CA)2023-03-09 02:25:53 Test Item Value Reference Range Interpretation Comments NA (test code = 139 mmol/L 135-145 2954654939) K (test code = 4.1 mmol/L 3.5-5.0 7471430619) CL (test code = 113 mmol/L 98-108 H 1881189739) CO2 TOTAL (test code = 18 mmol/L 23-31 L 5475222642) AGAP (test code = 8 2-16 3824752156) BUN (test code = 46 mg/dL 7-23 H 6334191558) GLUCOSE (test code = 154 mg/dL 70-110 H 5139226665) CREATININE (test code = 2.82 mg/dL 0.60-1.25 H 4324516750) CALCIUM (test code = 7.3 mg/dL 8.6-10.6 L 8712363092) eGFR (test code = 23.0 mL/min/1.73m2 8521416666) MIKAYLA (test code = MIKAYLA) Association of Glomerular Filtration Rate (GFR) and Staging of Kidney Disease* + --+ --+ ------+| GFR (mL/min/1.73 m2) ?| With Kidney Damage ?| ?Without Kidney Damage+ --------+ --------+ +| ?>90 ?| ?Stage one ?| ? Normal ?+ ---+ ---+ -------+| ?60-89 ?| ?Stage two ?| ? Decreased GFR ? + --+ --+ ------+| ?30-59 ?| ?Stage three ?| ? Stage three ? + --+ --+ ------+| ?15-29 ?| ?Stage four ? | ? Stage four ?+ ---+ ---+ -------+| ?<15 (or dialysis) ? ?| ?Stage five ? | ? Stage five ?+ ---+ ---+ -------+ *Each stage assumes the associated GFR level has been in effect for at least three months. ?Stages 1 to 5, with or without kidney disease, indicate chronic kidney disease. Notes: Determination of stages one and two (with eGFR >59mL/min/1.73 m2) requires estimation of kidney damage for at least three months as defined by structural or functional abnormalities of the kidney, manifested by either:Pathological abnormalities or Markers of kidney damage (including abnormalities in the composition of the blood or urine or abnormalities in imaging tests). Lab Interpretation Abnormal (test code = 68882-9) [facility] METABOLIC PANEL (NA, K, CL, CO2, GLUCOSE, BUN, CREATININE, CA)2023-03-09 02:25:53 Test Item Value Reference Range Interpretation Comments NA (test code = 139 mmol/L 135-145 2307857996) K (test code = 4.1 mmol/L 3.5-5.0 1144279578) CL (test code = 113 mmol/L 98-108 H 4258206067) CO2 TOTAL (test code = 18 mmol/L 23-31 L 8870338751) AGAP (test code = 8 2-16 8986520822) BUN (test code = 46 mg/dL 7-23 H 3442821139) GLUCOSE (test code = 154 mg/dL 70-110 H 9604083231) CREATININE (test code = 2.82 mg/dL 0.60-1.25 H 1344520292) CALCIUM (test code = 7.3 mg/dL 8.6-10.6 L 8530241177) eGFR (test code = 23.0 mL/min/1.73m2 3099759808) MIKAYLA (test code = MIKAYLA) Association of Glomerular Filtration Rate (GFR) and Staging of Kidney Disease* + --+ --+ ------+| GFR (mL/min/1.73 m2) ?| With Kidney Damage ?| ?Without Kidney Damage+ --------+ --------+ +| ?>90 ?| ?Stage one ?| ? Normal ?+ ---+ ---+ -------+| ?60-89 ?| ?Stage two ?| ? Decreased GFR ? + --+ --+ ------+| ?30-59 ?| ?Stage three ?| ? Stage three ? + --+ --+ ------+| ?15-29 ?| ?Stage four ? | ? Stage four ?+ ---+ ---+ -------+| ?<15 (or dialysis) ? ?| ?Stage five ? | ? Stage five ?+ ---+ ---+ -------+ *Each stage assumes the associated GFR level has been in effect for at least three months. ?Stages 1 to 5, with or without kidney disease, indicate chronic kidney disease. Notes: Determination of stages one and two (with eGFR >59mL/min/1.73 m2) requires estimation of kidney damage for at least three months as defined by structural or functional abnormalities of the kidney, manifested by either:Pathological abnormalities or Markers of kidney damage (including abnormalities in the composition of the blood or urine or abnormalities in imaging tests). Lab Interpretation Abnormal (test code = 32444-6) [facility] WITH [id number] 02:12:59 Test Item Value Reference Range Interpretation Comments WBC (test code = 22.80 See_Comment H [Automated 6690-2) message] The sy stem which generated this result transmitted reference range : 4.20 - 10.70 10*3/?L. The reference range was not used to interpret this result as normal/abnormal . RBC (test code = 2.95 See_Comment L [Automated 789-8) message] The sy stem which generated this result transmitted reference range : 4.26 - 5.52 10*6/?L. The reference range was not used to interpret this result as normal/abnormal . HGB (test code = 8.3 g/dL 12.2-16.4 L 718-7) HCT (test code = 27.6 % 38.4-49.3 L 4544-3) MCV (test code = 93.6 fL 81.7-95.6 787-2) MCH (test code = 28.1 pg 26.1-32.7 785-6) MCHC (test code = 30.1 g/dL 31.2-35.0 L 786-4) RDW-SD (test code = 80.6 fL 38.5-51.6 H 39878-2) RDW-CV (test code = 24.4 % 12.1-15.4 H 788-0) PLT (test code = 57 See_Comment L [Automated 777-3) message] The sy stem which generated this result transmitted reference range : 150 - 328 10*3/ ?L. The reference r kyra was not used to interpret this result as normal/abnormal . MPV (test code = Not Measure d 16228-6) IPF % (test code = 19.4 % 1.2-10.7 H Platelet count [id number]) measured by fluorescence method. NRBC/100 WBC (test 0.1 See_Comment [Automat ed code = 5115262145) message] The system which generated this result transmitted reference range : 0.0 - 10.0 /100 WBCs. The refer ence range was not u sed to interpret th is result as normal/abnormal . NRBC x10^3 (test code 0.03 See_Comment [Auto mated = 7941316650) message] The s ystem which generated this result transmitted reference range : 10*3/?L. The reference range was not used to interpret this result as normal/abnormal . GRAN MAT (NEUT) % 89.0 % (test code = 770-8) IMM GRAN % (test code 1.10 % = 5385525690) LYMPH % (test code = 5.0 % 736-9) MONO % (test code = 4.0 % 5905-5) EOS % (test code = 0.8 % 713-8) BASO % (test code = 0.1 % 706-2) GRAN MAT x10^3(ANC) 20.28 10*3/uL 1.99-6.95 H (test code = 1184882868) IMM GRAN x10^3 (test 0.24 10*3/uL 0.00-0.06 H code = 4718777669) LYMPH x10^3 (test 1.15 10*3/uL 1.09-3.23 code = 731-0) MONO x10^3 (test code 0.92 10*3/uL 0.36-1.02 = 742-7) EOS x10^3 (test code 0.19 10*3/uL 0.06-0.53 = 711-2) BASO x10^3 (test code 0.01-0.09 = 704-7) BRADLEY CELLS (test code 2+ See_Comment A [Auto mated = 7729-9) message] The sy stem which generated this result transmitted reference range : (none). The reference range was not used to interpret this result as normal/abnormal . Lab Interpretation Abnormal (test code = 23776-5) [facility] WITH [id number] 02:12:59 Test Item Value Reference Range Interpretation Comments WBC (test code = 22.80 See_Comment H [Automated 6690-2) message] The sy stem which generated this result transmitted reference range : 4.20 - 10.70 10*3/?L. The reference range was not used to interpret this result as normal/abnormal . RBC (test code = 2.95 See_Comment L [Automated 789-8) message] The sy stem which generated this result transmitted reference range : 4.26 - 5.52 10*6/?L. The reference range was not used to interpret this result as normal/abnormal . HGB (test code = 8.3 g/dL 12.2-16.4 L 718-7) HCT (test code = 27.6 % 38.4-49.3 L 4544-3) MCV (test code = 93.6 fL 81.7-95.6 787-2) MCH (test code = 28.1 pg 26.1-32.7 785-6) MCHC (test code = 30.1 g/dL 31.2-35.0 L 786-4) RDW-SD (test code = 80.6 fL 38.5-51.6 H 38865-0) RDW-CV (test code = 24.4 % 12.1-15.4 H 788-0) PLT (test code = 57 See_Comment L [Automated 777-3) message] The sy stem which generated this result transmitted reference range : 150 - 328 10*3/ ?L. The reference r kyra was not used to interpret this result as normal/abnormal . MPV (test code = Not Measure d 54009-7) IPF % (test code = 19.4 % 1.2-10.7 H Platelet count [id number]) measured by fluorescence method. NRBC/100 WBC (test 0.1 See_Comment [Automat ed code = 0747710630) message] The system which generated this result transmitted reference range : 0.0 - 10.0 /100 WBCs. The refer ence range was not u sed to interpret th is result as normal/abnormal . NRBC x10^3 (test code 0.03 See_Comment [Auto mated = 3380267921) message] The s ystem which generated this result transmitted reference range : 10*3/?L. The reference range was not used to interpret this result as normal/abnormal . GRAN MAT (NEUT) % 89.0 % (test code = 770-8) IMM GRAN % (test code 1.10 % = 2630785239) LYMPH % (test code = 5.0 % 736-9) MONO % (test code = 4.0 % 5905-5) EOS % (test code = 0.8 % 713-8) BASO % (test code = 0.1 % 706-2) GRAN MAT x10^3(ANC) 20.28 10*3/uL 1.99-6.95 H (test code = 2402680420) IMM GRAN x10^3 (test 0.24 10*3/uL 0.00-0.06 H code = 3961672762) LYMPH x10^3 (test 1.15 10*3/uL 1.09-3.23 code = 731-0) MONO x10^3 (test code 0.92 10*3/uL 0.36-1.02 = 742-7) EOS x10^3 (test code 0.19 10*3/uL 0.06-0.53 = 711-2) BASO x10^3 (test code 0.01-0.09 = 704-7) BRADLEY CELLS (test code 2+ See_Comment A [Auto mated = 7790-9) message] The sy stem which generated this result transmitted reference range : (none). The reference range was not used to interpret this result as normal/abnormal . Lab Interpretation Abnormal (test code = 30597-3) [facility] Lactic [id number] 01:52:11 Test Item Value Reference Range Interpretation Comments PH (test code = 2) 7.41 7.35-7.45 PCO2 (test code = 28 See_Comment L [Automate d 3594118152) message] The sy stem which generated this result transmitted reference range : 35 - 45 mmHg. The reference range was not used to interpret this result as normal/abnormal . PO2 (test code = 110 See_Comment H [Automated 7513086278) message] The sy stem which generated this result transmitted reference range : 80 - 100 mmHg. The reference range was not used to interpret this result as normal/abnormal . HCO3 (test code = 17 See_Comment L [Automate d 2494715406) message] The sy stem which generated this result transmitted reference range : 22 - 26 mEq/L. The reference range was not used to interpret this result as normal/abnormal . BE (test code = -6.3 See_Comment L [Automated 3636971698) message] The sy stem which generated this result transmitted reference range : -3.0 - 3.0 mEq/ L. The reference r kyra was not used to interpret this result as normal/abnormal . THB (test code = 9.9 g/dL 13.5-18.0 L 9027181802) %O2HB (test code = 96.9 % 94.0-99.0 0576279371) %COHB ART (test code = 0.9 % 0.0-1.5 2540331112) %METHB ART (test code = 0.2 % 0.4-1.5 L 2059748722) VOL%O2 ART (test code = 13.7 % 15.0-23.0 L 7522954932) NA (test code = 139 mmol/L 135-145 6820347689) K+ (test code = 4.0 mmol/L 3.5-5.0 5311762609) AC CA IONZ (test code = 4.50 mg/dL 4.50-5.30 0761835841) GLUCOSE (test code = 154 mg/dL 70-110 H 6151764741) LACTIC ACID (test code 1.00 mmol/L 0.50-2.20 = 0566986834) Lab Interpretation Abnormal (test code = 00375-3) [facility] Lactic [id number] 01:52:11 Test Item Value Reference Range Interpretation Comments PH (test code = 2) 7.41 7.35-7.45 PCO2 (test code = 28 See_Comment L [Automate d 1062312623) message] The sy stem which generated this result transmitted reference range : 35 - 45 mmHg. The reference range was not used to interpret this result as normal/abnormal . PO2 (test code = 110 See_Comment H [Automated 4274363991) message] The sy stem which generated this result transmitted reference range : 80 - 100 mmHg. The reference range was not used to interpret this result as normal/abnormal . HCO3 (test code = 17 See_Comment L [Automate d 4135386895) message] The sy stem which generated this result transmitted reference range : 22 - 26 mEq/L. The reference range was not used to interpret this result as normal/abnormal . BE (test code = -6.3 See_Comment L [Automated 3542872406) message] The sy stem which generated this result transmitted reference range : -3.0 - 3.0 mEq/ L. The reference r kyra was not used to interpret this result as normal/abnormal . THB (test code = 9.9 g/dL 13.5-18.0 L 0223532727) %O2HB (test code = 96.9 % 94.0-99.0 4982168091) %COHB ART (test code = 0.9 % 0.0-1.5 4612935926) %METHB ART (test code = 0.2 % 0.4-1.5 L 0648540479) VOL%O2 ART (test code = 13.7 % 15.0-23.0 L 8218264821) NA (test code = 139 mmol/L 135-145 0099244340) K+ (test code = 4.0 mmol/L 3.5-5.0 3579375495) AC CA IONZ (test code = 4.50 mg/dL 4.50-5.30 9253950247) GLUCOSE (test code = 154 mg/dL 70-110 H 0371819891) LACTIC ACID (test code 1.00 mmol/L 0.50-2.20 = 3674134019) Lab Interpretation Abnormal (test code = 02942-2) [facility] GLUCOSE (AUTOMATED)2023-03-09 01:45:56 Test Item Value Reference Range Interpretation Comments POCT GLU (test code = 4897238963) 168 mg/dL 70-110 H Lab Interpretation (test code = Abnormal 06011-2) [facility] GLUCOSE (AUTOMATED)2023-03-09 01:45:56 Test Item Value Reference Range Interpretation Comments POCT GLU (test code = 4045111258) 168 mg/dL 70-110 H Lab Interpretation (test code = Abnormal 77595-3) [facility], Unfractionated [id number] 22:55:48 Test Item Value Reference Range Interpretation Comments KLEL, Unfractionated 0 % Heparin, Low Dose (test code = 03511-0) KELL, Unfractionated 0 % Heparin, High Dose (test code = 28844-8) KELL, Unfractionated Negative Negative Heparin (Porcine) (test code = 31255-2) KELL, Unfractionated See Note This pat ient's specimen Heparin, Interp. (test demon strates a negative code = 19178-2) result in th e serotonin release assay. ?A diagnosis of heparin-induced thrombocytopeni a (HIT) is unlikely, bu t not completely excl uded. A positive result would demonstrate >= 20% serotonin relea se from reagent platele ts in the presence of patient specimen and lo w-dose heparin (0.1 U/ mL) and <20% serotonin release from reagent pl atelets (inhibition of the reaction) in th e presence of pat ient specimen and hi gh-dose heparin (100 U/ mL). ? Additional info rmation regarding diagn osis of HIT is availabl e at [employer] .INTERPR ETIVE INFORMATI ON: KELL, Unfractionated Heparin This test was d eveloped and its perform ance characteristics determined by [facility]. I t has not been cleare d or approved by the [place] Food and Drug Administration. This test was perfor med in a CLIA certified laboratory and is intended for cl inical purposes.Perfor med By: [facility] [address] [place] [id number] Director: Fiordaliza Choi MD, PhD [facility] [id number] 22:55:48 Test Item Value Reference Range Interpretation Comments KELL, Unfractionated 0 % Heparin, Low Dose (test code = 75271-0) KELL, Unfractionated 0 % Heparin, High Dose (test code = 48339-5) KELL, Unfractionated Negative Negative Heparin (Porcine) (test code = 28427-2) KELL, Unfractionated See Note This pat ient's specimen Heparin, Interp. (test demon strates a negative code = 39776-4) result in th e serotonin release assay. ?A diagnosis of heparin-induced thrombocytopeni a (HIT) is unlikely, bu t not completely excl uded. A positive result would demonstrate >= 20% serotonin relea se from reagent platele ts in the presence of patient specimen and lo w-dose heparin (0.1 U/ mL) and <20% serotonin release from reagent pl atelets (inhibition of the reaction) in th e presence of pat ient specimen and hi gh-dose heparin (100 U/ mL). ? Additional info rmation regarding diagn osis of HIT is availabl e at [employer] .INTERPR ETIVE INFORMATI ON: KELL, Unfractionated Heparin This test was d eveloped and its perform ance characteristics determined by [facility]. I t has not been cleare d or approved by the [place] Food and Drug Administration. This test was perfor med in a CLIA certified laboratory and is intended for cl inical purposes.[facility]: [facility] [address] [id number] Director: Fiordaliza Choi MD, PhD [facility]ated [id number] 22:55:48 Test Item Value Reference Range Interpretation Comments KELL, Unfractionated 0 % Heparin, Low Dose (test code = 42115-8) KELL, Unfractionated 0 % Heparin, High Dose (test code = 96108-0) KELL, Unfractionated Negative Negative Heparin (Porcine) (test code = 13217-0) KELL, Unfractionated See Note This pat ient's specimen Heparin, Interp. (test demon strates a negative code = 03345-9) result in th e serotonin release assay. ?A diagnosis of heparin-induced thrombocytopeni a (HIT) is unlikely, bu t not completely excl uded. A positive result would demonstrate >= 20% serotonin relea se from reagent platele ts in the presence of patient specimen and lo w-dose heparin (0.1 U/ mL) and <20% serotonin release from reagent pl atelets (inhibition of the reaction) in th e presence of pat ient specimen and hi gh-dose heparin (100 U/ mL). ? Additional info rmation regarding diagn osis of HIT is availabl e at [employer] .INTERPR ETIVE INFORMATI ON: KELL, Unfractionated Heparin This test was d eveloped and its perform ance characteristics determined by [facility]. I t has not been cleare d or approved by the [place] Food and Drug Administration. This test was perfor med in a CLIA certified laboratory and is intended for cl inical purposes.Perfor med By: [address] [id number] Director: Fiordaliza Choi MD, PhD [facility], Unfractionated [id number] 22:55:47 Test Item Value Reference Range Interpretation Comments KELL, Unfractionated 0 % Heparin, Low Dose (test code = 19992-8) KELL, Unfractionated 0 % Heparin, High Dose (test code = 03110-3) KELL, Unfractionated Negative Negative Heparin (Porcine) (test code = 78652-7) KELL, Unfractionated See Note This pat ient's specimen Heparin, Interp. (test demon strates a negative code = 30947-3) result in th e serotonin release assay. ?A diagnosis of heparin-induced thrombocytopeni a (HIT) is unlikely, bu t not completely excl uded. A positive result would demonstrate >= 20% serotonin relea se from reagent platele ts in the presence of patient specimen and lo w-dose heparin (0.1 U/ mL) and <20% serotonin release from reagent pl atelets (inhibition of the reaction) in th e presence of pat ient specimen and hi gh-dose heparin (100 U/ mL). ? Additional info rmation regarding diagn osis of HIT is availabl e at [employer] .INTERPR ETIVE INFORMATI ON: KELL, Unfractionated Heparin This test was d eveloped and its perform ance characteristics determined by [facility]. I t has not been cleare d or approved by the [place] Food and Drug Administration. This test was perfor med in a CLIA certified laboratory and is intended for cl inical purposes.Perfor med By: [address] [id number] Director: Fiordaliza Choi MD, PhD [facility], Unfractionated [id number] 22:55:47 Test Item Value Reference Range Interpretation Comments KELL, Unfractionated 0 % Heparin, Low Dose (test code = 03974-9) KELL, Unfractionated 0 % Heparin, High Dose (test code = 91917-1) KELL, Unfractionated Negative Negative Heparin (Porcine) (test code = 63582-5) KELL, Unfractionated See Note This pat ient's specimen Heparin, Interp. (test demon strates a negative code = 02911-3) result in th e serotonin release assay. ?A diagnosis of heparin-induced thrombocytopeni a (HIT) is unlikely, bu t not completely excl uded. A positive result would demonstrate >= 20% serotonin relea se from reagent platele ts in the presence of patient specimen and lo w-dose heparin (0.1 U/ mL) and <20% serotonin release from reagent pl atelets (inhibition of the reaction) in th e presence of pat ient specimen and hi gh-dose heparin (100 U/ mL). ? Additional info rmation regarding diagn osis of HIT is availabl e at [employer] .INTERPR ETIVE INFORMATI ON: KELL, Unfractionated Heparin This test was d eveloped and its perform ance characteristics determined by [facility]. I t has not been cleare d or approved by the US Food and Drug Administration. This test was perfor med in a CLIA certified laboratory and is intended for cl inical purposes.Perfor med By: [facility] [address] [place] [id number] Director: Fiordaliza Choi MD, PhD [facility] GLUCOSE (AUTOMATED)2023-03-08 21:53:23 Test Item Value Reference Range Interpretation Comments POCT GLU (test code = 7013576581) 201 mg/dL 70-110 H Lab Interpretation (test code = Abnormal 30643-1) [facility] GLUCOSE (AUTOMATED)2023-03-08 21:53:23 Test Item Value Reference Range Interpretation Comments POCT GLU (test code = 8572335921) 201 mg/dL 70-110 H Lab Interpretation (test code = Abnormal 33596-1) [facility] WITH [id number] 14:14:03 Test Item Value Reference Range Interpretation Comments WBC (test code = 22.04 See_Comment H [Automated 6690-2) message] The sy stem which generated this result transmitted reference range : 4.20 - 10.70 10*3/?L. The reference range was not used to interpret this result as normal/abnormal . RBC (test code = 2.71 See_Comment L [Automated 789-8) message] The sy stem which generated this result transmitted reference range : 4.26 - 5.52 10*6/?L. The reference range was not used to interpret this result as normal/abnormal . HGB (test code = 7.8 g/dL 12.2-16.4 L 718-7) HCT (test code = 25.0 % 38.4-49.3 L 4544-3) MCV (test code = 92.3 fL 81.7-95.6 787-2) MCH (test code = 28.8 pg 26.1-32.7 785-6) MCHC (test code = 31.2 g/dL 31.2-35.0 786-4) RDW-SD (test code = 74.7 fL 38.5-51.6 H 35976-0) RDW-CV (test code = 23.8 % 12.1-15.4 H 788-0) PLT (test code = 47 See_Comment LL [Automated 777-3) message] The sy stem which generated this result transmitted reference range : 150 - 328 10*3/ ?L. The reference r kyra was not used to interpret this result as normal/abnormal . MPV (test code = Not Measure d 59397-1) IPF % (test code = 17.6 % 1.2-10.7 H Platelet count 3488643304) measured by fluorescence method. NRBC/100 WBC (test 0.1 See_Comment [Automat ed code = 5758606943) message] The system which generated this result transmitted reference range : 0.0 - 10.0 /100 WBCs. The refer ence range was not u sed to interpret th is result as normal/abnormal . NRBC x10^3 (test code 0.03 See_Comment [Auto mated = 5245215544) message] The s ystem which generated this result transmitted reference range : 10*3/?L. The reference range was not used to interpret this result as normal/abnormal . GRAN MAT (NEUT) % 88.7 % (test code = 770-8) IMM GRAN % (test code 1.40 % = 0311159878) LYMPH % (test code = 5.0 % 736-9) MONO % (test code = 4.2 % 5905-5) EOS % (test code = 0.6 % 713-8) BASO % (test code = 0.1 % 706-2) GRAN MAT x10^3(ANC) 19.55 10*3/uL 1.99-6.95 H (test code = 2272196841) IMM GRAN x10^3 (test 0.30 10*3/uL 0.00-0.06 H code = 5503122112) LYMPH x10^3 (test 1.10 10*3/uL 1.09-3.23 code = 731-0) MONO x10^3 (test code 0.93 10*3/uL 0.36-1.02 = 742-7) EOS x10^3 (test code 0.14 10*3/uL 0.06-0.53 = 711-2) BASO x10^3 (test code 0.01-0.09 = 704-7) SCHISTOCYTES (test 1+ A code = 800-3) Lab Interpretation Abnormal (test code = 30660-5) [facility] WITH [id number] 14:14:03 Test Item Value Reference Range Interpretation Comments WBC (test code = 22.04 See_Comment H [Automated 1590-2) message] The sy stem which generated this result transmitted reference range : 4.20 - 10.70 10*3/?L. The reference range was not used to interpret this result as normal/abnormal . RBC (test code = 2.71 See_Comment L [Automated 789-8) message] The sy stem which generated this result transmitted reference range : 4.26 - 5.52 10*6/?L. The reference range was not used to interpret this result as normal/abnormal . HGB (test code = 7.8 g/dL 12.2-16.4 L 718-7) HCT (test code = 25.0 % 38.4-49.3 L 4544-3) MCV (test code = 92.3 fL 81.7-95.6 787-2) MCH (test code = 28.8 pg 26.1-32.7 785-6) MCHC (test code = 31.2 g/dL 31.2-35.0 786-4) RDW-SD (test code = 74.7 fL 38.5-51.6 H 29916-9) RDW-CV (test code = 23.8 % 12.1-15.4 H 788-0) PLT (test code = 47 See_Comment LL [Automated 777-3) message] The sy stem which generated this result transmitted reference range : 150 - 328 10*3/ ?L. The reference r kyra was not used to interpret this result as normal/abnormal . MPV (test code = Not Measure d 65670-0) IPF % (test code = 17.6 % 1.2-10.7 H Platelet count 3382787663) measured by fluorescence method. NRBC/100 WBC (test 0.1 See_Comment [Automat ed code = 4368076347) message] The system which generated this result transmitted reference range : 0.0 - 10.0 /100 WBCs. The refer ence range was not u sed to interpret th is result as normal/abnormal . NRBC x10^3 (test code 0.03 See_Comment [Auto mated = 6614141387) message] The s ystem which generated this result transmitted reference range : 10*3/?L. The reference range was not used to interpret this result as normal/abnormal . GRAN MAT (NEUT) % 88.7 % (test code = 770-8) IMM GRAN % (test code 1.40 % = 0412452347) LYMPH % (test code = 5.0 % 736-9) MONO % (test code = 4.2 % 5905-5) EOS % (test code = 0.6 % 713-8) BASO % (test code = 0.1 % 706-2) GRAN MAT x10^3(ANC) 19.55 10*3/uL 1.99-6.95 H (test code = 1330442707) IMM GRAN x10^3 (test 0.30 10*3/uL 0.00-0.06 H code = 3442102590) LYMPH x10^3 (test 1.10 10*3/uL 1.09-3.23 code = 731-0) MONO x10^3 (test code 0.93 10*3/uL 0.36-1.02 = 742-7) EOS x10^3 (test code 0.14 10*3/uL 0.06-0.53 = 711-2) BASO x10^3 (test code 0.01-0.09 = 704-7) SCHISTOCYTES (test 1+ A code = 800-3) Lab Interpretation Abnormal (test code = 15105-6) [facility] GLUCOSE (AUTOMATED)2023-03-08 13:37:19 Test Item Value Reference Range Interpretation Comments POCT GLU (test code = 7264225879) 150 mg/dL 70-110 H Lab Interpretation (test code = Abnormal 33575-3) [facility] GLUCOSE (AUTOMATED)2023-03-08 13:37:19 Test Item Value Reference Range Interpretation Comments POCT GLU (test code = 9519371213) 150 mg/dL 70-110 H Lab Interpretation (test code = Abnormal 49386-5) [facility] METABOLIC PANEL (NA, K, CL, CO2, GLUCOSE, BUN, CREATININE, CA)2023-03-08 11:59:39 Test Item Value Reference Range Interpretation Comments NA (test code = 138 mmol/L 135-145 8800853103) K (test code = 3.9 mmol/L 3.5-5.0 5175371084) CL (test code = 112 mmol/L 98-108 H 3760328952) CO2 TOTAL (test code = 18 mmol/L 23-31 L 9892852649) AGAP (test code = 8 2-16 4608195624) BUN (test code = 36 mg/dL 7-23 H 8080813627) GLUCOSE (test code = 136 mg/dL 70-110 H 7724099058) CREATININE (test code = 2.19 mg/dL 0.60-1.25 H 0073474328) CALCIUM (test code = 7.0 mg/dL 8.6-10.6 L 5866169607) eGFR (test code = 30.7 mL/min/1.73m2 2739864027) MIKAYLA (test code = MIKAYLA) Association of Glomerular Filtration Rate (GFR) and Staging of Kidney Disease* + --+ --+ ------+| GFR (mL/min/1.73 m2) ?| With Kidney Damage ?| ?Without Kidney Damage+ --------+ --------+ +| ?>90 ?| ?Stage one ?| ? Normal ?+ ---+ ---+ -------+| ?60-89 ?| ?Stage two ?| ? Decreased GFR ? + --+ --+ ------+| ?30-59 ?| ?Stage three ?| ? Stage three ? + --+ --+ ------+| ?15-29 ?| ?Stage four ? | ? Stage four ?+ ---+ ---+ -------+| ?<15 (or dialysis) ? ?| ?Stage five ? | ? Stage five ?+ ---+ ---+ -------+ *Each stage assumes the associated GFR level has been in effect for at least three months. ?Stages 1 to 5, with or without kidney disease, indicate chronic kidney disease. Notes: Determination of stages one and two (with eGFR >59mL/min/1.73 m2) requires estimation of kidney damage for at least three months as defined by structural or functional abnormalities of the kidney, manifested by either:Pathological abnormalities or Markers of kidney damage (including abnormalities in the composition of the blood or urine or abnormalities in imaging tests). Lab Interpretation Abnormal (test code = 53785-4) [facility]59:39 Test Item Value Reference Range Interpretation Comments MAGNESIUM (test code = 5132699104) 2.2 mg/dL 1.7-2.4 Lab Interpretation (test code = Normal 67078-0) [facility] 11:59:39 Test Item Value Reference Range Interpretation Comments PHOSPHORUS (test code = 0348246153) 3.1 mg/dL 2.5-5.0 Lab Interpretation (test code = Normal 04916-7) [facility] (NA, K, CL, CO2, GLUCOSE, BUN, CREATININE, CA)2023-03-08 11:59:39 Test Item Value Reference Range Interpretation Comments NA (test code = 138 mmol/L 135-145 4543464005) K (test code = 3.9 mmol/L 3.5-5.0 2879866066) CL (test code = 112 mmol/L 98-108 H 0961147610) CO2 TOTAL (test code = 18 mmol/L 23-31 L 3316251613) AGAP (test code = 8 2-16 2107199937) BUN (test code = 36 mg/dL 7-23 H 7398865135) GLUCOSE (test code = 136 mg/dL 70-110 H 7659186488) CREATININE (test code = 2.19 mg/dL 0.60-1.25 H 3955533029) CALCIUM (test code = 7.0 mg/dL 8.6-10.6 L 5244216222) eGFR (test code = 30.7 mL/min/1.73m2 8367866013) MIKAYLA (test code = MIKAYLA) Association of Glomerular Filtration Rate (GFR) and Staging of Kidney Disease* + --+ --+ ------+| GFR (mL/min/1.73 m2) ?| With Kidney Damage ?| ?Without Kidney Damage+ --------+ --------+ +| ?>90 ?| ?Stage one ?| ? Normal ?+ ---+ ---+ -------+| ?60-89 ?| ?Stage two ?| ? Decreased GFR ? + --+ --+ ------+| ?30-59 ?| ?Stage three ?| ? Stage three ? + --+ --+ ------+| ?15-29 ?| ?Stage four ? | ? Stage four ?+ ---+ ---+ -------+| ?<15 (or dialysis) ? ?| ?Stage five ? | ? Stage five ?+ ---+ ---+ -------+ *Each stage assumes the associated GFR level has been in effect for at least three months. ?Stages 1 to 5, with or without kidney disease, indicate chronic kidney disease. Notes: Determination of stages one and two (with eGFR >59mL/min/1.73 m2) requires estimation of kidney damage for at least three months as defined by structural or functional abnormalities of the kidney, manifested by either:Pathological abnormalities or Markers of kidney damage (including abnormalities in the composition of the blood or urine or abnormalities in imaging tests). Lab Interpretation Abnormal (test code = 86481-6) [facility] Test Item Value Reference Range Interpretation Comments MAGNESIUM (test code = 9169656092) 2.2 mg/dL 1.7-2.4 Lab Interpretation (test code = Normal 18262-3) [facility] Test Item Value Reference Range Interpretation Comments PHOSPHORUS (test code = 5852883330) 3.1 mg/dL 2.5-5.0 Lab Interpretation (test code = Normal 45895-6) [facility] GLUCOSE (AUTOMATED)2023-03-08 10:54:21 Test Item Value Reference Range Interpretation Comments POCT GLU (test code = 8270865714) 145 mg/dL 70-110 H Lab Interpretation (test code = Abnormal 82781-2) [facility] GLUCOSE (AUTOMATED)2023-03-08 10:54:21 Test Item Value Reference Range Interpretation Comments POCT GLU (test code = 0177005873) 145 mg/dL 70-110 H Lab Interpretation (test code = Abnormal 18776-5) [facility] WITH [id number] 06:46:23 Test Item Value Reference Range Interpretation Comments WBC (test code = 22.64 See_Comment H [Automated 6690-2) message] The sy stem which generated this result transmitted reference range : 4.20 - 10.70 10*3/?L. The reference range was not used to interpret this result as normal/abnormal . RBC (test code = 2.75 See_Comment L [Automated 239-8) message] The sy stem which generated this result transmitted reference range : 4.26 - 5.52 10*6/?L. The reference range was not used to interpret this result as normal/abnormal . HGB (test code = 7.8 g/dL 12.2-16.4 L 718-7) HCT (test code = 25.4 % 38.4-49.3 L 4544-3) MCV (test code = 92.4 fL 81.7-95.6 787-2) MCH (test code = 28.4 pg 26.1-32.7 785-6) MCHC (test code = 30.7 g/dL 31.2-35.0 L 786-4) RDW-SD (test code = 75.7 fL 38.5-51.6 H 16292-3) RDW-CV (test code = 23.9 % 12.1-15.4 H 788-0) PLT (test code = 44 See_Comment LL [Automated 777-3) message] The sy stem which generated this result transmitted reference range : 150 - 328 10*3/ ?L. The reference r kyra was not used to interpret this result as normal/abnormal . MPV (test code = Not Measure d 84154-1) IPF % (test code = 17.3 % 1.2-10.7 H Platelet count [id number]) measured by fluorescence method. NRBC/100 WBC (test 0.2 See_Comment [Automat ed code = 7638011504) message] The system which generated this result transmitted reference range : 0.0 - 10.0 /100 WBCs. The refer ence range was not u sed to interpret th is result as normal/abnormal . NRBC x10^3 (test code 0.04 See_Comment [Auto mated = 4144001320) message] The s ystem which generated this result transmitted reference range : 10*3/?L. The reference range was not used to interpret this result as normal/abnormal . GRAN MAT (NEUT) % 89.3 % (test code = 770-8) IMM GRAN % (test code 1.10 % = 1928664083) LYMPH % (test code = 4.3 % 736-9) MONO % (test code = 5.0 % 5905-5) EOS % (test code = 0.2 % 713-8) BASO % (test code = 0.1 % 706-2) GRAN MAT x10^3(ANC) 20.21 10*3/uL 1.99-6.95 H (test code = 1153972110) IMM GRAN x10^3 (test 0.25 10*3/uL 0.00-0.06 H code = 7659318808) LYMPH x10^3 (test 0.98 10*3/uL 1.09-3.23 L code = 731-0) MONO x10^3 (test code 1.14 10*3/uL 0.36-1.02 H = 742-7) EOS x10^3 (test code 0.04 10*3/uL 0.06-0.53 L = 711-2) BASO x10^3 (test code 0.01-0.09 = 704-7) SCHISTOCYTES (test 1+ A code = 800-3) Lab Interpretation Abnormal (test code = 38930-8) [facility] WITH [id number] 06:46:23 Test Item Value Reference Range Interpretation Comments WBC (test code = 22.64 See_Comment H [Automated 6690-2) message] The sy stem which generated this result transmitted reference range : 4.20 - 10.70 10*3/?L. The reference range was not used to interpret this result as normal/abnormal . RBC (test code = 2.75 See_Comment L [Automated 789-8) message] The sy stem which generated this result transmitted reference range : 4.26 - 5.52 10*6/?L. The reference range was not used to interpret this result as normal/abnormal . HGB (test code = 7.8 g/dL 12.2-16.4 L 718-7) HCT (test code = 25.4 % 38.4-49.3 L 4544-3) MCV (test code = 92.4 fL 81.7-95.6 787-2) MCH (test code = 28.4 pg 26.1-32.7 785-6) MCHC (test code = 30.7 g/dL 31.2-35.0 L 786-4) RDW-SD (test code = 75.7 fL 38.5-51.6 H 86397-1) RDW-CV (test code = 23.9 % 12.1-15.4 H 788-0) PLT (test code = 44 See_Comment LL [Automated 777-3) message] The sy stem which generated this result transmitted reference range : 150 - 328 10*3/ ?L. The reference r kyra was not used to interpret this result as normal/abnormal . MPV (test code = Not Measure d 77937-8) IPF % (test code = 17.3 % 1.2-10.7 H Platelet count 8546125037) measured by fluorescence method. NRBC/100 WBC (test 0.2 See_Comment [Automat ed code = 0358209928) message] The system which generated this result transmitted reference range : 0.0 - 10.0 /100 WBCs. The refer ence range was not u sed to interpret th is result as normal/abnormal . NRBC x10^3 (test code 0.04 See_Comment [Auto mated = 9094304203) message] The s ystem which generated this result transmitted reference range : 10*3/?L. The reference range was not used to interpret this result as normal/abnormal . GRAN MAT (NEUT) % 89.3 % (test code = 770-8) IMM GRAN % (test code 1.10 % = 7497313046) LYMPH % (test code = 4.3 % 736-9) MONO % (test code = 5.0 % 5905-5) EOS % (test code = 0.2 % 713-8) BASO % (test code = 0.1 % 706-2) GRAN MAT x10^3(ANC) 20.21 10*3/uL 1.99-6.95 H (test code = 2851946117) IMM GRAN x10^3 (test 0.25 10*3/uL 0.00-0.06 H code = 7385305000) LYMPH x10^3 (test 0.98 10*3/uL 1.09-3.23 L code = 731-0) MONO x10^3 (test code 1.14 10*3/uL 0.36-1.02 H = 742-7) EOS x10^3 (test code 0.04 10*3/uL 0.06-0.53 L = 711-2) BASO x10^3 (test code 0.01-0.09 = 704-7) SCHISTOCYTES (test 1+ A code = 800-3) Lab Interpretation Abnormal (test code = 99101-5) [facility] GLUCOSE (AUTOMATED)2023-03-08 05:52:04 Test Item Value Reference Range Interpretation Comments POCT GLU (test code = 4177672737) 150 mg/dL 70-110 H Lab Interpretation (test code = Abnormal 09163-3) [facility] GLUCOSE (AUTOMATED)2023-03-08 05:52:04 Test Item Value Reference Range Interpretation Comments POCT GLU (test code = 0064877364) 150 mg/dL 70-110 H Lab Interpretation (test code = Abnormal 68200-0) [facility] WITH [id number] 02:38:27 Test Item Value Reference Range Interpretation Comments WBC (test code = 21.26 See_Comment H [Automated 6690-2) message] The sy stem which generated this result transmitted reference range : 4.20 - 10.70 10*3/?L. The reference range was not used to interpret this result as normal/abnormal . RBC (test code = 2.84 See_Comment L [Automated 789-8) message] The sy stem which generated this result transmitted reference range : 4.26 - 5.52 10*6/?L. The reference range was not used to interpret this result as normal/abnormal . HGB (test code = 8.0 g/dL 12.2-16.4 L 718-7) HCT (test code = 26.1 % 38.4-49.3 L 4544-3) MCV (test code = 91.9 fL 81.7-95.6 787-2) MCH (test code = 28.2 pg 26.1-32.7 785-6) MCHC (test code = 30.7 g/dL 31.2-35.0 L 786-4) RDW-SD (test code = 74.7 fL 38.5-51.6 H 32942-0) RDW-CV (test code = 23.6 % 12.1-15.4 H 788-0) PLT (test code = 45 See_Comment LL [Automated 777-3) message] The sy stem which generated this result transmitted reference range : 150 - 328 10*3/ ?L. The reference r kyra was not used to interpret this result as normal/abnormal . MPV (test code = Not Measure d 50464-4) IPF % (test code = 15.8 % 1.2-10.7 H Platelet count 5979842386) measured by fluorescence method. NRBC/100 WBC (test 0.2 See_Comment [Automat ed code = 4865143253) message] The system which generated this result transmitted reference range : 0.0 - 10.0 /100 WBCs. The refer ence range was not u sed to interpret th is result as normal/abnormal . NRBC x10^3 (test code 0.04 See_Comment [Auto mated = 8252475217) message] The s ystem which generated this result transmitted reference range : 10*3/?L. The reference range was not used to interpret this result as normal/abnormal . GRAN MAT (NEUT) % 89.3 % (test code = 770-8) IMM GRAN % (test code 1.30 % = 2424520706) LYMPH % (test code = 3.9 % 736-9) MONO % (test code = 5.4 % 5905-5) EOS % (test code = 0.0 % 713-8) BASO % (test code = 0.1 % 706-2) GRAN MAT x10^3(ANC) 18.98 10*3/uL 1.99-6.95 H (test code = 5442787851) IMM GRAN x10^3 (test 0.28 10*3/uL 0.00-0.06 H code = 0588534649) LYMPH x10^3 (test 0.83 10*3/uL 1.09-3.23 L code = 731-0) MONO x10^3 (test code 1.14 10*3/uL 0.36-1.02 H = 742-7) EOS x10^3 (test code 0.06-0.53 L = 711-2) BASO x10^3 (test code 0.01-0.09 = 704-7) SCHISTOCYTES (test 1+ A code = 800-3) Lab Interpretation Abnormal (test code = 90148-3) [facility] WITH [id number] 02:38:27 Test Item Value Reference Range Interpretation Comments WBC (test code = 21.26 See_Comment H [Automated 6690-2) message] The sy stem which generated this result transmitted reference range : 4.20 - 10.70 10*3/?L. The reference range was not used to interpret this result as normal/abnormal . RBC (test code = 2.84 See_Comment L [Automated 789-8) message] The sy stem which generated this result transmitted reference range : 4.26 - 5.52 10*6/?L. The reference range was not used to interpret this result as normal/abnormal . HGB (test code = 8.0 g/dL 12.2-16.4 L 718-7) HCT (test code = 26.1 % 38.4-49.3 L 4544-3) MCV (test code = 91.9 fL 81.7-95.6 787-2) MCH (test code = 28.2 pg 26.1-32.7 785-6) MCHC (test code = 30.7 g/dL 31.2-35.0 L 786-4) RDW-SD (test code = 74.7 fL 38.5-51.6 H 66823-7) RDW-CV (test code = 23.6 % 12.1-15.4 H 788-0) PLT (test code = 45 See_Comment LL [Automated 777-3) message] The sy stem which generated this result transmitted reference range : 150 - 328 10*3/ ?L. The reference r kyra was not used to interpret this result as normal/abnormal . MPV (test code = Not Measure d 55218-0) IPF % (test code = 15.8 % 1.2-10.7 H Platelet count 6011546065) measured by fluorescence method. NRBC/100 WBC (test 0.2 See_Comment [Automat ed code = 1368603346) message] The system which generated this result transmitted reference range : 0.0 - 10.0 /100 WBCs. The refer ence range was not u sed to interpret th is result as normal/abnormal . NRBC x10^3 (test code 0.04 See_Comment [Auto mated = 1102646634) message] The s ystem which generated this result transmitted reference range : 10*3/?L. The reference range was not used to interpret this result as normal/abnormal . GRAN MAT (NEUT) % 89.3 % (test code = 770-8) IMM GRAN % (test code 1.30 % = 2060894508) LYMPH % (test code = 3.9 % 736-9) MONO % (test code = 5.4 % 5905-5) EOS % (test code = 0.0 % 713-8) BASO % (test code = 0.1 % 706-2) GRAN MAT x10^3(ANC) 18.98 10*3/uL 1.99-6.95 H (test code = 8718170608) IMM GRAN x10^3 (test 0.28 10*3/uL 0.00-0.06 H code = 4949776699) LYMPH x10^3 (test 0.83 10*3/uL 1.09-3.23 L code = 731-0) MONO x10^3 (test code 1.14 10*3/uL 0.36-1.02 H = 742-7) EOS x10^3 (test code 0.06-0.53 L = 711-2) BASO x10^3 (test code 0.01-0.09 = 704-7) SCHISTOCYTES (test 1+ A code = 800-3) Lab Interpretation Abnormal (test code = 25667-0) [facility] Lactic [id number] 01:59:24 Test Item Value Reference Range Interpretation Comments PH (test code = 2) 7.38 7.35-7.45 PCO2 (test code = 31 See_Comment L [Automate d 9365644579) message] The sy stem which generated this result transmitted reference range : 35 - 45 mmHg. The reference range was not used to interpret this result as normal/abnormal . PO2 (test code = 115 See_Comment H [Automated 6733291640) message] The sy stem which generated this result transmitted reference range : 80 - 100 mmHg. The reference range was not used to interpret this result as normal/abnormal . HCO3 (test code = 18 See_Comment L [Automate d 9810740865) message] The sy stem which generated this result transmitted reference range : 22 - 26 mEq/L. The reference range was not used to interpret this result as normal/abnormal . BE (test code = -6.2 See_Comment L [Automated 5862345058) message] The sy stem which generated this result transmitted reference range : -3.0 - 3.0 mEq/ L. The reference r kyra was not used to interpret this result as normal/abnormal . THB (test code = 8.6 g/dL 13.5-18.0 L 5741517409) %O2HB (test code = 97.2 % 94.0-99.0 0537987961) %COHB ART (test code = 0.9 % 0.0-1.5 0190670789) %METHB ART (test code = 0.2 % 0.4-1.5 L 9680281263) VOL%O2 ART (test code = 12.0 % 15.0-23.0 L 4372887103) NA (test code = 139 mmol/L 135-145 5425747373) K+ (test code = 4.0 mmol/L 3.5-5.0 4184421984) AC CA IONZ (test code = 4.30 mg/dL 4.50-5.30 L 1640863882) GLUCOSE (test code = 132 mg/dL 70-110 H 4779848998) LACTIC ACID (test code 0.95 mmol/L 0.50-2.20 = 0316500842) Lab Interpretation Abnormal (test code = 59855-8) [facility] Lactic [id number] 01:59:24 Test Item Value Reference Range Interpretation Comments PH (test code = 2) 7.38 7.35-7.45 PCO2 (test code = 31 See_Comment L [Automate d 3077163840) message] The sy stem which generated this result transmitted reference range : 35 - 45 mmHg. The reference range was not used to interpret this result as normal/abnormal . PO2 (test code = 115 See_Comment H [Automated 6996247546) message] The sy stem which generated this result transmitted reference range : 80 - 100 mmHg. The reference range was not used to interpret this result as normal/abnormal . HCO3 (test code = 18 See_Comment L [Automate d 9096322738) message] The sy stem which generated this result transmitted reference range : 22 - 26 mEq/L. The reference range was not used to interpret this result as normal/abnormal . BE (test code = -6.2 See_Comment L [Automated 9594151955) message] The sy stem which generated this result transmitted reference range : -3.0 - 3.0 mEq/ L. The reference r kyra was not used to interpret this result as normal/abnormal . THB (test code = 8.6 g/dL 13.5-18.0 L 9844395399) %O2HB (test code = 97.2 % 94.0-99.0 6530456014) %COHB ART (test code = 0.9 % 0.0-1.5 5801256887) %METHB ART (test code = 0.2 % 0.4-1.5 L 0956240950) VOL%O2 ART (test code = 12.0 % 15.0-23.0 L 9734409298) NA (test code = 139 mmol/L 135-145 3280239376) K+ (test code = 4.0 mmol/L 3.5-5.0 2351661799) AC CA IONZ (test code = 4.30 mg/dL 4.50-5.30 L 7948515903) GLUCOSE (test code = 132 mg/dL 70-110 H 8918275814) LACTIC ACID (test code 0.95 mmol/L 0.50-2.20 = 0758548892) Lab Interpretation Abnormal (test code = 41673-0) [facility] GLUCOSE (AUTOMATED)2023-03-08 01:51:47 Test Item Value Reference Range Interpretation Comments POCT GLU (test code = 3500049373) 136 mg/dL 70-110 H Lab Interpretation (test code = Abnormal 06960-3) [facility] GLUCOSE (AUTOMATED)2023-03-08 01:51:47 Test Item Value Reference Range Interpretation Comments POCT GLU (test code = 0221395122) 136 mg/dL 70-110 H Lab Interpretation (test code = Abnormal 73554-0) [facility] Packed RBC (in units), 1 Units 2023-03-08 00:21:37 Test Item Value Reference Range Interpretation Comments Cross Match Result Compatible (test code = 4409) ISBT Blood Type Code 5100 (test code = 597882) Unit Blood Type (test O Pos code = 4410) Unit Number (test [id number] code = 4411) Blood Expiration Date & Time (test code = 677600) Status Information Issued (test code = 4412) Product Red Blood Cells Identification (test code = 4413) Product Code (test [id number] Performed at [facility] code = 4414) Laboratory Services - [facility] Blood [address] [place] [address]Of[address] Free: [phone] A No. [id number] [facility] (in units), 1 Units 2023-03-08 00:21:37 Test Item Value Reference Range Interpretation Comments Cross Match Result Compatible (test code = 4409) ISBT Blood Type Code 5100 (test code = 352403) Unit Blood Type (test O Pos code = 4410) Unit Number (test [id number] code = 4411) Blood Expiration Date & Time (test code = 400083) Status Information Issued (test code = 4412) Product Red Blood Cells Identification (test code = 4413) Product Code (test [id number] Performed at [facility] code = 4414) Laboratory Services - [facility] Blood [address] [address]Ihui Free: [phone] A No. [id number] [facility] GLUCOSE (AUTOMATED)2023-03-07 21:56:22 Test Item Value Reference Range Interpretation Comments POCT GLU (test code = 4221879048) 125 mg/dL 70-110 H Lab Interpretation (test code = Abnormal 56710-6) [facility] GLUCOSE (AUTOMATED)2023-03-07 21:56:22 Test Item Value Reference Range Interpretation Comments POCT GLU (test code = 8357464395) 125 mg/dL 70-110 H Lab Interpretation (test code = Abnormal 27954-6) [facility] [id number] 20:58:22 Test Item Value Reference Range Interpretation Comments VANCO RANDOM (test code = 14.2 ug/mL 4684901596) [facility] Random [id number] 20:58:22 Test Item Value Reference Range Interpretation Comments VANCO RANDOM (test code = 14.2 ug/mL 0688651146) [facility] Random [id number] 20:58:22 Test Item Value Reference Range Interpretation Comments VANCO RANDOM (test code = 14.2 ug/mL 3382534651) [facility] WITH [id number] 19:30:00 Test Item Value Reference Range Interpretation Comments WBC (test code = 21.13 See_Comment H [Automated 6690-2) message] The sy stem which generated this result transmitted reference range : 4.20 - 10.70 10*3/?L. The reference range was not used to interpret this result as normal/abnormal . RBC (test code = 2.55 See_Comment L [Automated 789-8) message] The sy stem which generated this result transmitted reference range : 4.26 - 5.52 10*6/?L. The reference range was not used to interpret this result as normal/abnormal . HGB (test code = 7.0 g/dL 12.2-16.4 L 718-7) HCT (test code = 23.6 % 38.4-49.3 L 4544-3) MCV (test code = 92.5 fL 81.7-95.6 787-2) MCH (test code = 27.5 pg 26.1-32.7 785-6) MCHC (test code = 29.7 g/dL 31.2-35.0 L 786-4) RDW-SD (test code = 79.0 fL 38.5-51.6 H 93894-1) RDW-CV (test code = 25.0 % 12.1-15.4 H 788-0) PLT (test code = 46 See_Comment LL [Automated 777-3) message] The sy stem which generated this result transmitted reference range : 150 - 328 10*3/ ?L. The reference r kyra was not used to interpret this result as normal/abnormal . MPV (test code = Not Measure d 28951-0) IPF % (test code = 18.3 % 1.2-10.7 H Platelet count 8065275108) measured by fluorescence method. NRBC/100 WBC (test 0.2 See_Comment [Automat ed code = 1031144482) message] The system which generated this result transmitted reference range : 0.0 - 10.0 /100 WBCs. The refer ence range was not u sed to interpret th is result as normal/abnormal . NRBC x10^3 (test code 0.04 See_Comment [Auto mated = 8732994389) message] The s ystem which generated this result transmitted reference range : 10*3/?L. The reference range was not used to interpret this result as normal/abnormal . GRAN MAT (NEUT) % 90.8 % (test code = 770-8) IMM GRAN % (test code 1.30 % = 0492692750) LYMPH % (test code = 3.5 % 736-9) MONO % (test code = 4.3 % 5905-5) EOS % (test code = 0.0 % 713-8) BASO % (test code = 0.1 % 706-2) GRAN MAT x10^3(ANC) 19.20 10*3/uL 1.99-6.95 H (test code = 0032280884) IMM GRAN x10^3 (test 0.27 10*3/uL 0.00-0.06 H code = 8207643157) LYMPH x10^3 (test 0.73 10*3/uL 1.09-3.23 L code = 731-0) MONO x10^3 (test code 0.90 10*3/uL 0.36-1.02 = 742-7) EOS x10^3 (test code 0.06-0.53 L = 711-2) BASO x10^3 (test code 0.01-0.09 = 704-7) SCHISTOCYTES (test 1+ A code = 800-3) Lab Interpretation Abnormal (test code = 48091-8) [facility] WITH [id number] 19:30:00 Test Item Value Reference Range Interpretation Comments WBC (test code = 21.13 See_Comment H [Automated 7090-2) message] The sy stem which generated this result transmitted reference range : 4.20 - 10.70 10*3/?L. The reference range was not used to interpret this result as normal/abnormal . RBC (test code = 2.55 See_Comment L [Automated 359-8) message] The sy stem which generated this result transmitted reference range : 4.26 - 5.52 10*6/?L. The reference range was not used to interpret this result as normal/abnormal . HGB (test code = 7.0 g/dL 12.2-16.4 L 718-7) HCT (test code = 23.6 % 38.4-49.3 L 4544-3) MCV (test code = 92.5 fL 81.7-95.6 787-2) MCH (test code = 27.5 pg 26.1-32.7 785-6) MCHC (test code = 29.7 g/dL 31.2-35.0 L 786-4) RDW-SD (test code = 79.0 fL 38.5-51.6 H 70312-8) RDW-CV (test code = 25.0 % 12.1-15.4 H 788-0) PLT (test code = 46 See_Comment LL [Automated 777-3) message] The sy stem which generated this result transmitted reference range : 150 - 328 10*3/ ?L. The reference r kyra was not used to interpret this result as normal/abnormal . MPV (test code = Not Measure d 15387-1) IPF % (test code = 18.3 % 1.2-10.7 H Platelet count 0480350258) measured by fluorescence method. NRBC/100 WBC (test 0.2 See_Comment [Automat ed code = 8394622393) message] The system which generated this result transmitted reference range : 0.0 - 10.0 /100 WBCs. The refer ence range was not u sed to interpret th is result as normal/abnormal . NRBC x10^3 (test code 0.04 See_Comment [Auto mated = 8786710862) message] The s ystem which generated this result transmitted reference range : 10*3/?L. The reference range was not used to interpret this result as normal/abnormal . GRAN MAT (NEUT) % 90.8 % (test code = 770-8) IMM GRAN % (test code 1.30 % = 8569648584) LYMPH % (test code = 3.5 % 736-9) MONO % (test code = 4.3 % 5905-5) EOS % (test code = 0.0 % 713-8) BASO % (test code = 0.1 % 706-2) GRAN MAT x10^3(ANC) 19.20 10*3/uL 1.99-6.95 H (test code = 3221144179) IMM GRAN x10^3 (test 0.27 10*3/uL 0.00-0.06 H code = 0820719800) LYMPH x10^3 (test 0.73 10*3/uL 1.09-3.23 L code = 731-0) MONO x10^3 (test code 0.90 10*3/uL 0.36-1.02 = 742-7) EOS x10^3 (test code 0.06-0.53 L = 711-2) BASO x10^3 (test code 0.01-0.09 = 704-7) SCHISTOCYTES (test 1+ A code = 800-3) Lab Interpretation Abnormal (test code = 50006-3) [facility] GLUCOSE (AUTOMATED)2023-03-07 18:29:18 Test Item Value Reference Range Interpretation Comments POCT GLU (test code = 8925081731) 142 mg/dL 70-110 H Lab Interpretation (test code = Abnormal 52381-7) [facility] GLUCOSE (AUTOMATED)2023-03-07 18:29:18 Test Item Value Reference Range Interpretation Comments POCT GLU (test code = 4173667837) 142 mg/dL 70-110 H Lab Interpretation (test code = Abnormal 69555-4) [facility] [id number] 16:03:39 Test Item Value Reference Range Interpretation Comments SPUTUM CULTURE 1+ Respiratory driss: (test code = 622-1) Commensal upper respiratory microorganisms only. Gram stain (test No Epithelial cells code = 664-3) MIKAYLA (test code = Bacterial pathogens MIKAYLA) associated with lower respiratory infections were not identified, which include Pseudomonas aeruginosa and Staphylococcus aureus (MRSA or MSSA). [facility] [id number] 16:03:39 Test Item Value Reference Range Interpretation Comments SPUTUM CULTURE 1+ Respiratory driss: (test code = 622-1) Commensal upper respiratory microorganisms only. Gram stain (test No Epithelial cells code = 664-3) MIKAYLA (test code = Bacterial pathogens MIKAYLA) associated with lower respiratory infections were not identified, which include Pseudomonas aeruginosa and Staphylococcus aureus (MRSA or MSSA). [facility] [id number] 16:03:39 Test Item Value Reference Range Interpretation Comments SPUTUM CULTURE 1+ Respiratory driss: (test code = 622-1) Commensal upper respiratory microorganisms only. Gram stain (test No Epithelial cells code = 664-3) MIKAYLA (test code = Bacterial pathogens MIKAYLA) associated with lower respiratory infections were not identified, which include Pseudomonas aeruginosa and Staphylococcus aureus (MRSA or MSSA). [facility] [id number] 16:03:39 Test Item Value Reference Range Interpretation Comments SPUTUM CULTURE 1+ Respiratory driss: (test code = 622-1) Commensal upper respiratory microorganisms only. Gram stain (test No Epithelial cells code = 664-3) MIKAYLA (test code = Bacterial pathogens MIKAYLA) associated with lower respiratory infections were not identified, which include Pseudomonas aeruginosa and Staphylococcus aureus (MRSA or MSSA). [facility] GLUCOSE (AUTOMATED)2023-03-07 15:04:11 Test Item Value Reference Range Interpretation Comments POCT GLU (test code = 5692109192) 117 mg/dL 70-110 H Lab Interpretation (test code = Abnormal 61789-8) [facility] GLUCOSE (AUTOMATED)2023-03-07 15:04:11 Test Item Value Reference Range Interpretation Comments POCT GLU (test code = 8032155115) 117 mg/dL 70-110 H Lab Interpretation (test code = Abnormal 32459-2) [facility] GLUCOSE (AUTOMATED)2023-03-07 15:04:11 Test Item Value Reference Range Interpretation Comments POCT GLU (test code = 3199180422) 117 mg/dL 70-110 H Lab Interpretation (test code = Abnormal 03444-7) [facility] [id number] 09:35:00 Test Item Value Reference Range Interpretation Comments PH (test code = 2) 7.37 7.35-7.45 PCO2 (test code = 33 See_Comment L [Automate d 3931952183) message] The sy stem which generated this result transmitted reference range : 35 - 45 mmHg. The reference range was not used to interpret this result as normal/abnormal . PO2 (test code = 146 See_Comment H [Automated 4954763936) message] The sy stem which generated this result transmitted reference range : 80 - 100 mmHg. The reference range was not used to interpret this result as normal/abnormal . HCO3 (test code = 19 See_Comment L [Automate d 8775218574) message] The sy stem which generated this result transmitted reference range : 22 - 26 mEq/L. The reference range was not used to interpret this result as normal/abnormal . BE (test code = -5.8 See_Comment L [Automated 9925785570) message] The sy stem which generated this result transmitted reference range : -3.0 - 3.0 mEq/ L. The reference r kyra was not used to interpret this result as normal/abnormal . THB (test code = 12.8 g/dL 13.5-18.0 L 9871972199) %O2HB (test code = 97.6 % 94.0-99.0 4206489425) %COHB ART (test code = 1.1 % 0.0-1.5 3134215504) %METHB ART (test code = 0.2 % 0.4-1.5 L 3378596298) VOL%O2 ART (test code = 17.8 % 15.0-23.0 6369586909) NA (test code = 141 mmol/L 135-145 3774987652) K+ (test code = 4.4 mmol/L 3.5-5.0 7764762183) AC CA IONZ (test code = 4.30 mg/dL 4.50-5.30 L 1229269004) GLUCOSE (test code = 97 mg/dL 70-110 6386097947) LACTIC ACID (test code 1.13 mmol/L 0.50-2.20 = 2832058092) Lab Interpretation Abnormal (test code = 42482-3) [facility] [id number] 09:35:00 Test Item Value Reference Range Interpretation Comments PH (test code = 2) 7.37 7.35-7.45 PCO2 (test code = 33 See_Comment L [Automate d 0394823334) message] The sy stem which generated this result transmitted reference range : 35 - 45 mmHg. The reference range was not used to interpret this result as normal/abnormal . PO2 (test code = 146 See_Comment H [Automated 5724425744) message] The sy stem which generated this result transmitted reference range : 80 - 100 mmHg. The reference range was not used to interpret this result as normal/abnormal . HCO3 (test code = 19 See_Comment L [Automate d 0976403452) message] The sy stem which generated this result transmitted reference range : 22 - 26 mEq/L. The reference range was not used to interpret this result as normal/abnormal . BE (test code = -5.8 See_Comment L [Automated 3027239354) message] The sy stem which generated this result transmitted reference range : -3.0 - 3.0 mEq/ L. The reference r kyra was not used to interpret this result as normal/abnormal . THB (test code = 12.8 g/dL 13.5-18.0 L 6913802329) %O2HB (test code = 97.6 % 94.0-99.0 8709436588) %COHB ART (test code = 1.1 % 0.0-1.5 9276209304) %METHB ART (test code = 0.2 % 0.4-1.5 L 4778205872) VOL%O2 ART (test code = 17.8 % 15.0-23.0 1274639421) NA (test code = 141 mmol/L 135-145 4611060799) K+ (test code = 4.4 mmol/L 3.5-5.0 0248320025) AC CA IONZ (test code = 4.30 mg/dL 4.50-5.30 L 0131469340) GLUCOSE (test code = 97 mg/dL 70-110 0795999657) LACTIC ACID (test code 1.13 mmol/L 0.50-2.20 = 7585550870) Lab Interpretation Abnormal (test code = 75911-8) [facility] Lactic [id number] 09:35:00 Test Item Value Reference Range Interpretation Comments PH (test code = 2) 7.37 7.35-7.45 PCO2 (test code = 33 See_Comment L [Automate d 4598742633) message] The sy stem which generated this result transmitted reference range : 35 - 45 mmHg. The reference range was not used to interpret this result as normal/abnormal . PO2 (test code = 146 See_Comment H [Automated 8437853139) message] The sy stem which generated this result transmitted reference range : 80 - 100 mmHg. The reference range was not used to interpret this result as normal/abnormal . HCO3 (test code = 19 See_Comment L [Automate d 6281666757) message] The sy stem which generated this result transmitted reference range : 22 - 26 mEq/L. The reference range was not used to interpret this result as normal/abnormal . BE (test code = -5.8 See_Comment L [Automated 8056410365) message] The sy stem which generated this result transmitted reference range : -3.0 - 3.0 mEq/ L. The reference r kyra was not used to interpret this result as normal/abnormal . THB (test code = 12.8 g/dL 13.5-18.0 L 6982293525) %O2HB (test code = 97.6 % 94.0-99.0 5450712248) %COHB ART (test code = 1.1 % 0.0-1.5 3336096659) %METHB ART (test code = 0.2 % 0.4-1.5 L 3274122781) VOL%O2 ART (test code = 17.8 % 15.0-23.0 5331958900) NA (test code = 141 mmol/L 135-145 2264474164) K+ (test code = 4.4 mmol/L 3.5-5.0 1423461871) AC CA IONZ (test code = 4.30 mg/dL 4.50-5.30 L 0802958317) GLUCOSE (test code = 97 mg/dL 70-110 8594819658) LACTIC ACID (test code 1.13 mmol/L 0.50-2.20 = 2399784809) Lab Interpretation Abnormal (test code = 58421-4) [facility] GLUCOSE (AUTOMATED)2023-03-07 09:00:17 Test Item Value Reference Range Interpretation Comments POCT GLU (test code = 7451314243) 100 mg/dL 70-110 Lab Interpretation (test code = Normal 32798-0) [facility] GLUCOSE (AUTOMATED)2023-03-07 09:00:17 Test Item Value Reference Range Interpretation Comments POCT GLU (test code = 9635208022) 100 mg/dL 70-110 Lab Interpretation (test code = Normal 55038-6) [facility] Lactic [id number] 04:16:36 Test Item Value Reference Range Interpretation Comments PH (test code = 2) 7.38 7.35-7.45 PCO2 (test code = 33 See_Comment L [Automate d 2309432202) message] The sy stem which generated this result transmitted reference range : 35 - 45 mmHg. The reference range was not used to interpret this result as normal/abnormal . PO2 (test code = 151 See_Comment H [Automated 7517213274) message] The sy stem which generated this result transmitted reference range : 80 - 100 mmHg. The reference range was not used to interpret this result as normal/abnormal . HCO3 (test code = 19 See_Comment L [Automate d 4773532753) message] The sy stem which generated this result transmitted reference range : 22 - 26 mEq/L. The reference range was not used to interpret this result as normal/abnormal . BE (test code = -5.5 See_Comment L [Automated 5155431711) message] The sy stem which generated this result transmitted reference range : -3.0 - 3.0 mEq/ L. The reference r kyra was not used to interpret this result as normal/abnormal . THB (test code = 8.0 g/dL 13.5-18.0 LL 5334940012) %O2HB (test code = 97.9 % 94.0-99.0 1269249597) %COHB ART (test code = 0.8 % 0.0-1.5 5805691044) %METHB ART (test code = 0.3 % 0.4-1.5 L 0264296157) VOL%O2 ART (test code = 11.4 % 15.0-23.0 L 4746448222) NA (test code = 140 mmol/L 135-145 6056219731) K+ (test code = 3.6 mmol/L 3.5-5.0 3713517038) AC CA IONZ (test code = 4.20 mg/dL 4.50-5.30 L 6637586217) GLUCOSE (test code = 120 mg/dL 70-110 H 2820873154) LACTIC ACID (test code 1.21 mmol/L 0.50-2.20 = 4283510727) Lab Interpretation Abnormal (test code = 71016-2) [facility] Lactic [id number] 04:16:36 Test Item Value Reference Range Interpretation Comments PH (test code = 2) 7.38 7.35-7.45 PCO2 (test code = 33 See_Comment L [Automate d 8725090975) message] The sy stem which generated this result transmitted reference range : 35 - 45 mmHg. The reference range was not used to interpret this result as normal/abnormal . PO2 (test code = 151 See_Comment H [Automated 4118204356) message] The sy stem which generated this result transmitted reference range : 80 - 100 mmHg. The reference range was not used to interpret this result as normal/abnormal . HCO3 (test code = 19 See_Comment L [Automate d 5752292907) message] The sy stem which generated this result transmitted reference range : 22 - 26 mEq/L. The reference range was not used to interpret this result as normal/abnormal . BE (test code = -5.5 See_Comment L [Automated 7936488491) message] The sy stem which generated this result transmitted reference range : -3.0 - 3.0 mEq/ L. The reference r kyra was not used to interpret this result as normal/abnormal . THB (test code = 8.0 g/dL 13.5-18.0 LL 4241693419) %O2HB (test code = 97.9 % 94.0-99.0 7871725016) %COHB ART (test code = 0.8 % 0.0-1.5 9109117646) %METHB ART (test code = 0.3 % 0.4-1.5 L 5845191368) VOL%O2 ART (test code = 11.4 % 15.0-23.0 L 9012895108) NA (test code = 140 mmol/L 135-145 0378443460) K+ (test code = 3.6 mmol/L 3.5-5.0 6834612664) AC CA IONZ (test code = 4.20 mg/dL 4.50-5.30 L 5911827610) GLUCOSE (test code = 120 mg/dL 70-110 H 0327326433) LACTIC ACID (test code 1.21 mmol/L 0.50-2.20 = 7113633540) Lab Interpretation Abnormal (test code = 38825-4) [facility] 03:10:50 Test Item Value Reference Range Interpretation Comments Height (test code = 74 in 9039130635) Weight (test code = 249 lbs 0561451646) Systolic BP (test 124 mmHg code = 7387335395) Diastolic BP (test 52 mmHg code = 2427517261) Heart Rate (test code 74 bpm = 2268517951) MV mean gradient 4.4 mmHg (test code = 8261703466) MV peak gradient 12.2 mmHg (test code = 0373358558) MV pk artemio (test code 174.7 cm/s = 7308882458) MV VTI (test code = 40.5 cm 4614851374) MV V2 mean (test code 98.20 cm/s = 7614126854) MV stenosis pressure 91.3 ms 1/2 time (test code = 2613522583) MV valve area p 1/2 2.44 cm2 method (test code = 3341735312) MV dec slope (test 573.40 cm/s2 code = 7331055315) MV P1/2t max artemio 176.70 cm/s (test code = 4336632668) BSA (test code = 2.39 m2 7771982188) Aortic valve mean 147.2 cm/s velocity (test code = 4690477175) Ao peak artemio (test 248.8 cm/s code = 3940043328) Ao VTI (test code = 42.4 cm 0828549550) Ao max PG (test code 24.80 mm[Hg] = 5006377447) AV peak gradient 24.8 mmHg (test code = 1215853314) AV mean gradient 10.5 mmHg (test code = 8123286220) LVOT diameter (test 2.0 cm code = 6093768030) Radiology Study observation (narrative) (test code = 15237-8) MIKAYLA (test code = MIKAYLA) ?Mitral?Valve: [address] [employer] epic bioprosthetic valve that is well-seated. Mild transvalvular regurgitation. No paravalvular regurgitation. Prosthesis hemodynamics suggest normally functioning valve. MV mean gradient is 4.4 mmHg at 93 bpm. MV PHT is 91.3 ms. Peak velocity is 1.7 m/s. DVI 2.0 (normal < 2.2). ?Aortic?Valve: [address] [employer] Supra tissue bioprosthetic valve that is well-seated. No transvalvular regurgitation. Mild paravalvular regurgitation. Normal prosthesis hemodynamics. The peak velocity is 2.5 m/s, mean pressure gradient is 10.5 m Hg, AT 80 ms. ?Normal right and left ventricular function. Left VentricleLeft ventricle size is normal. Normal systolic function with a visually estimated EF of 60 - 65%.Right VentricleRight ventricle size is normal. Normal systolic function.Left AtriumLeft atrium size is normal. Left atrial appendage was not well visualized. Normal sized appendage. No thrombus in left atrial appendage.Right AtriumRight atrium size is normal.IVC/SVCIVC was not assessed.Mitral Valve29 mm mm [address] Jefferson epic bioprosthetic valve that is well-seated. Mild transvalvular regurgitation. No paravalvular regurgitation. Prosthesis hemodynamics suggest normally functioning valve. MV mean gradient is 4.4 mmHg at 93 bpm. MV PHT is 91.3 ms. Peak velocity is 1.7 m/s. DVI 2.0 (normal < 2.2).Tricuspid ValveTricuspid valve structure is normal. Trace transvalvular regurgitation.Aortic Valve21 mm mm [facility] [employer] Supra tissue bioprosthetic valve that is well-seated. No transvalvular regurgitation. Mild paravalvular regurgitation. Normal prosthesis hemodynamics. The peak velocity is 2.5 m/s, mean pressure gradient is 10.5 m Hg, AT 80 ms.Pulmonic ValveValve structure is normal. No transvalvular regurgitation.Ascending AortaNot well visualized.PericardiumTh e pericardium is normal. No pericardial effusion.Study DetailsA complete transesophageal echocardiogram was performed using complete 2D, color flow Doppler and spectral Doppler. During the study the esophageal and transgastric views were captured. The probe was inserted by the fabrication lead. There was no probe insertion difficulty.There were 1 attempts to insert the probe. Probe in 1304. Probe out 1344. ICU nurse administered sedation meds, ICU nurse monitored sedation recovery. Lidocaine was not administered during the study. There were no complications during the procedure. Pt is intubated and sedated with Propofol prior to DEVONTE. Echo RN did not give any sedation. MR, RN [facility] Lactic [id number] 02:14:01 Test Item Value Reference Range Interpretation Comments PH (test code = 2) 7.40 7.35-7.45 PCO2 (test code = 32 See_Comment L [Automate d 8968764205) message] The Predict[employer] stem which generated this result transmitted reference range : 35 - 45 mmHg. The reference range was not used to interpret this result as normal/abnormal . PO2 (test code = 157 See_Comment H [Automated 0261040051) message] The sy stem which generated this result transmitted reference range : 80 - 100 mmHg. The reference range was not used to interpret this result as normal/abnormal . HCO3 (test code = 19 See_Comment L [Automate d 7592431949) message] The sy stem which generated this result transmitted reference range : 22 - 26 mEq/L. The reference range was not used to interpret this result as normal/abnormal . BE (test code = -5.1 See_Comment L [Automated 6235735833) message] The sy stem which generated this result transmitted reference range : -3.0 - 3.0 mEq/ L. The reference r kyra was not used to interpret this result as normal/abnormal . THB (test code = 8.3 g/dL 13.5-18.0 LL 8566612461) %O2HB (test code = 98.1 % 94.0-99.0 5985801514) %COHB ART (test code = 0.9 % 0.0-1.5 9242098345) %METHB ART (test code = 0.2 % 0.4-1.5 L 9251904692) VOL%O2 ART (test code = 11.8 % 15.0-23.0 L 2872224070) NA (test code = 141 mmol/L 135-145 8618669586) K+ (test code = 3.7 mmol/L 3.5-5.0 9323884699) AC CA IONZ (test code = 4.20 mg/dL 4.50-5.30 L 9743945650) GLUCOSE (test code = 134 mg/dL 70-110 H 7491820045) LACTIC ACID (test code 1.31 mmol/L 0.50-2.20 = 4391989066) Lab Interpretation Abnormal (test code = 80330-9) [facility] Lactic [id number] 02:14:01 Test Item Value Reference Range Interpretation Comments PH (test code = 2) 7.40 7.35-7.45 PCO2 (test code = 32 See_Comment L [Automate d 9664237191) message] The sy stem which generated this result transmitted reference range : 35 - 45 mmHg. The reference range was not used to interpret this result as normal/abnormal . PO2 (test code = 157 See_Comment H [Automated 3163862951) message] The sy stem which generated this result transmitted reference range : 80 - 100 mmHg. The reference range was not used to interpret this result as normal/abnormal . HCO3 (test code = 19 See_Comment L [Automate d 7108647784) message] The sy stem which generated this result transmitted reference range : 22 - 26 mEq/L. The reference range was not used to interpret this result as normal/abnormal . BE (test code = -5.1 See_Comment L [Automated 8261961703) message] The sy stem which generated this result transmitted reference range : -3.0 - 3.0 mEq/ L. The reference r kyra was not used to interpret this result as normal/abnormal . THB (test code = 8.3 g/dL 13.5-18.0 LL 7217272899) %O2HB (test code = 98.1 % 94.0-99.0 8355121060) %COHB ART (test code = 0.9 % 0.0-1.5 1959842873) %METHB ART (test code = 0.2 % 0.4-1.5 L 3276210616) VOL%O2 ART (test code = 11.8 % 15.0-23.0 L 8328014967) NA (test code = 141 mmol/L 135-145 4134874607) K+ (test code = 3.7 mmol/L 3.5-5.0 3423759044) AC CA IONZ (test code = 4.20 mg/dL 4.50-5.30 L 6367466975) GLUCOSE (test code = 134 mg/dL 70-110 H 1663852432) LACTIC ACID (test code 1.31 mmol/L 0.50-2.20 = 1130430200) Lab Interpretation Abnormal (test code = 38567-8) [facility] GLUCOSE (AUTOMATED)2023-03-07 01:41:03 Test Item Value Reference Range Interpretation Comments POCT GLU (test code = 5979504229) 142 mg/dL 70-110 H Lab Interpretation (test code = Abnormal 58292-4) [facility] GLUCOSE (AUTOMATED)2023-03-07 01:41:03 Test Item Value Reference Range Interpretation Comments POCT GLU (test code = 6852452209) 142 mg/dL 70-110 H Lab Interpretation (test code = Abnormal 82638-5) [facility] GLUCOSE (AUTOMATED)2023-03-06 22:49:48 Test Item Value Reference Range Interpretation Comments POCT GLU (test code = 9289355797) 161 mg/dL 70-110 H Lab Interpretation (test code = Abnormal 48571-4) [facility] GLUCOSE (AUTOMATED)2023-03-06 22:49:48 Test Item Value Reference Range Interpretation Comments POCT GLU (test code = 0527718539) 161 mg/dL 70-110 H Lab Interpretation (test code = Abnormal 15156-0) [facility] [id number] 21:08:00 Test Item Value Reference Range Interpretation Comments WBC (test code = 21.30 See_Comment H [Automated 6690-2) message] The sy stem which generated this result transmitted reference range : 4.20 - 10.70 10*3/?L. The reference range was not used to interpret this result as normal/abnormal . RBC (test code = 2.69 See_Comment L [Automated 789-8) message] The sy stem which generated this result transmitted reference range : 4.26 - 5.52 10*6/?L. The reference range was not used to interpret this result as normal/abnormal . HGB (test code = 7.6 g/dL 12.2-16.4 L 718-7) HCT (test code = 24.3 % 38.4-49.3 L 4544-3) MCV (test code = 90.3 fL 81.7-95.6 787-2) MCH (test code = 28.3 pg 26.1-32.7 785-6) MCHC (test code = 31.3 g/dL 31.2-35.0 786-4) RDW-SD (test code = 71.7 fL 38.5-51.6 H 92453-8) RDW-CV (test code = 23.4 % 12.1-15.4 H 788-0) PLT (test code = 40 See_Comment LL [Automated 777-3) message] The sy stem which generated this result transmitted reference range : 150 - 328 10*3/ ?L. The reference r kyra was not used to interpret this result as normal/abnormal . MPV (test code = Not Measure d 77780-2) IPF % (test code = 18.2 % 1.2-10.7 H Platelet count 9398306366) measured by fluorescence method. NRBC/100 WBC (test 0.2 See_Comment [Automat ed code = 0400601873) message] The system which generated this result transmitted reference range : 0.0 - 10.0 /100 WBCs. The refer ence range was not u sed to interpret th is result as normal/abnormal . NRBC x10^3 (test code 0.04 See_Comment [Auto mated = 8287601131) message] The s ystem which generated this result transmitted reference range : 10*3/?L. The reference range was not used to interpret this result as normal/abnormal . GRAN MAT (NEUT) % 90.2 % (test code = 770-8) IMM GRAN % (test code 1.70 % = 5794836837) LYMPH % (test code = 4.5 % 736-9) MONO % (test code = 3.5 % 5905-5) EOS % (test code = 0.0 % 713-8) BASO % (test code = 0.1 % 706-2) GRAN MAT x10^3(ANC) 19.22 10*3/uL 1.99-6.95 H (test code = 0812270457) IMM GRAN x10^3 (test 0.36 10*3/uL 0.00-0.06 H code = 8426217217) LYMPH x10^3 (test 0.95 10*3/uL 1.09-3.23 L code = 731-0) MONO x10^3 (test code 0.74 10*3/uL 0.36-1.02 = 742-7) EOS x10^3 (test code 0.06-0.53 L = 711-2) BASO x10^3 (test code 0.03 10*3/uL 0.01-0.09 = 704-7) BASO STIPPLING (test Present A code = 703-9) POLYCHROMASIA (test 2+ See_Comment [Automa che code = 13676-6) message] The system which generated this result transmitted reference range : 2+. The referen ce range was not u sed to interpret th is result as normal/abnormal . SCHISTOCYTES (test 1+ A code = 800-3) BANDS (test code = Increased A 4954611365) Lab Interpretation Abnormal (test code = 78609-8) [facility] WITH [id number] 21:08:00 Test Item Value Reference Range Interpretation Comments WBC (test code = 21.30 See_Comment H [Automated 6690-2) message] The sy stem which generated this result transmitted reference range : 4.20 - 10.70 10*3/?L. The reference range was not used to interpret this result as normal/abnormal . RBC (test code = 2.69 See_Comment L [Automated 789-8) message] The sy stem which generated this result transmitted reference range : 4.26 - 5.52 10*6/?L. The reference range was not used to interpret this result as normal/abnormal . HGB (test code = 7.6 g/dL 12.2-16.4 L 718-7) HCT (test code = 24.3 % 38.4-49.3 L 4544-3) MCV (test code = 90.3 fL 81.7-95.6 787-2) MCH (test code = 28.3 pg 26.1-32.7 785-6) MCHC (test code = 31.3 g/dL 31.2-35.0 786-4) RDW-SD (test code = 71.7 fL 38.5-51.6 H 22148-4) RDW-CV (test code = 23.4 % 12.1-15.4 H 788-0) PLT (test code = 40 See_Comment LL [Automated 777-3) message] The sy stem which generated this result transmitted reference range : 150 - 328 10*3/ ?L. The reference r kyra was not used to interpret this result as normal/abnormal . MPV (test code = Not Measure d 07733-4) IPF % (test code = 18.2 % 1.2-10.7 H Platelet count 7737967262) measured by fluorescence method. NRBC/100 WBC (test 0.2 See_Comment [Automat ed code = 8634492501) message] The system which generated this result transmitted reference range : 0.0 - 10.0 /100 WBCs. The refer ence range was not u sed to interpret th is result as normal/abnormal . NRBC x10^3 (test code 0.04 See_Comment [Auto mated = 0626092618) message] The s ystem which generated this result transmitted reference range : 10*3/?L. The reference range was not used to interpret this result as normal/abnormal . GRAN MAT (NEUT) % 90.2 % (test code = 770-8) IMM GRAN % (test code 1.70 % = 7489079599) LYMPH % (test code = 4.5 % 736-9) MONO % (test code = 3.5 % 5905-5) EOS % (test code = 0.0 % 713-8) BASO % (test code = 0.1 % 706-2) GRAN MAT x10^3(ANC) 19.22 10*3/uL 1.99-6.95 H (test code = 3020796513) IMM GRAN x10^3 (test 0.36 10*3/uL 0.00-0.06 H code = 8894045511) LYMPH x10^3 (test 0.95 10*3/uL 1.09-3.23 L code = 731-0) MONO x10^3 (test code 0.74 10*3/uL 0.36-1.02 = 742-7) EOS x10^3 (test code 0.06-0.53 L = 711-2) BASO x10^3 (test code 0.03 10*3/uL 0.01-0.09 = 704-7) BASO STIPPLING (test Present A code = 703-9) POLYCHROMASIA (test 2+ See_Comment [Automa che code = 36448-8) message] The system which generated this result transmitted reference range : 2+. The referen ce range was not u sed to interpret th is result as normal/abnormal . SCHISTOCYTES (test 1+ A code = 800-3) BANDS (test code = Increased A 9506390801) Lab Interpretation Abnormal (test code = 74961-9) [facility] GLUCOSE (AUTOMATED)2023-03-06 17:49:47 Test Item Value Reference Range Interpretation Comments POCT GLU (test code = 2121311202) 191 mg/dL 70-110 H Lab Interpretation (test code = Abnormal 79441-6) [facility] [facility]23-[facility]-06 17:49:47 Test Item Value Reference Range Interpretation Comments POCT GLU (test code = 4937088655) 191 mg/dL 70-110 H Lab Interpretation (test code = Abnormal 33746-2) [facility] CULTURE [id number] 16:01:59 Test Item Value Reference Range Interpretation Comments Blood Culture-Aerobic No organisms No growth Previo us (test code = 53296-1) isolated prelim inary verified result was Culture In Progress on 03/01/2023 at 14 01 CDTPrevious preliminary verified result was No growth a t 24 hours on 03/02/2023 at 110 1 CDTPrevious preliminary verified result was No growth a t 48 hours on 03/03/2023 at 110 1 CDTPrevious preliminary verified result was No growth a t 72 hours on 03/04/2023 at 110 1 CDT Blood No organisms No growth Previous Culture-Anaerobic isolated preliminar y (test code = 32421-6) verifi ed result was Culture In Progress on 03/01/2023 at 14 01 CDTPrevious preliminary verified result was No growth a t 24 hours on 03/02/2023 at 110 1 CDTPrevious preliminary verified result was No growth a t 48 hours on 03/03/2023 at 110 1 CDTPrevious preliminary verified result was No growth a t 72 hours on 03/04/2023 at 110 1 CDT Lab Interpretation Normal (test code = 04722-2) [facility] CULTURE [id number] 16:01:59 Test Item Value Reference Range Interpretation Comments Blood Culture-Aerobic No organisms No growth Previo us (test code = 34894-9) isolated prelim inary verified result was Culture In Progress on 03/01/2023 at 14 01 CDTPrevious preliminary verified result was No growth a t 24 hours on 03/02/2023 at 110 1 CDTPrevious preliminary verified result was No growth a t 48 hours on 03/03/2023 at 110 1 CDTPrevious preliminary verified result was No growth a t 72 hours on 03/04/2023 at 110 1 CDT Blood No organisms No growth Previous Culture-Anaerobic isolated preliminar y (test code = 50085-5) verifi ed result was Culture In Progress on 03/01/2023 at 14 01 CDTPrevious preliminary verified result was No growth a t 24 hours on 03/02/2023 at 110 1 CDTPrevious preliminary verified result was No growth a t 48 hours on 03/03/2023 at 110 1 CDTPrevious preliminary verified result was No growth a t 72 hours on 03/04/2023 at 110 1 CDT Lab Interpretation Normal (test code = 99088-5) [facility] CULTURE [id number] 16:01:59 Test Item Value Reference Range Interpretation Comments Blood Culture-Aerobic No organisms No growth Previo us (test code = 36078-0) isolated prelim inary verified result was Culture In Progress on 03/01/2023 at 14 01 CDTPrevious preliminary verified result was No growth a t 24 hours on 03/02/2023 at 110 1 CDTPrevious preliminary verified result was No growth a t 48 hours on 03/03/2023 at 110 1 CDTPrevious preliminary verified result was No growth a t 72 hours on 03/04/2023 at 110 1 CDT Blood No organisms No growth Previous Culture-Anaerobic isolated preliminar y (test code = 87428-8) verifi ed result was Culture In Progress on 03/01/2023 at 14 01 CDTPrevious preliminary verified result was No growth a t 24 hours on 03/02/2023 at 110 1 CDTPrevious preliminary verified result was No growth a t 48 hours on 03/03/2023 at 110 1 CDTPrevious preliminary verified result was No growth a t 72 hours on 03/04/2023 at 110 1 CDT Lab Interpretation Normal (test code = 47803-3) [facility] CULTURE [id number] 16:01:59 Test Item Value Reference Range Interpretation Comments Blood Culture-Aerobic No organisms No growth Previo us (test code = 54350-9) isolated prelim inary verified result was Culture In Progress on 03/01/2023 at 14 01 CDTPrevious preliminary verified result was No growth a t 24 hours on 03/02/2023 at 110 1 CDTPrevious preliminary verified result was No growth a t 48 hours on 03/03/2023 at 110 1 CDTPrevious preliminary verified result was No growth a t 72 hours on 03/04/2023 at 110 1 CDT Blood No organisms No growth Previous Culture-Anaerobic isolated preliminar y (test code = 49036-0) verifi ed result was Culture In Progress on 03/01/2023 at 14 01 CDTPrevious preliminary verified result was No growth a t 24 hours on 03/02/2023 at 110 1 CDTPrevious preliminary verified result was No growth a t 48 hours on 03/03/2023 at 110 1 CDTPrevious preliminary verified result was No growth a t 72 hours on 03/04/2023 at 110 1 CDT Lab Interpretation Normal (test code = 56509-9) [facility] [id number] 16:01:59 Test Item Value Reference Range Interpretation Comments Blood Culture-Aerobic No organisms No growth Previo us (test code = 03561-2) isolated prelim inary verified result was Culture In Progress on 03/01/2023 at 14 01 CDTPrevious preliminary verified result was No growth a t 24 hours on 03/02/2023 at 110 1 CDTPrevious preliminary verified result was No growth a t 48 hours on 03/03/2023 at 110 1 CDTPrevious preliminary verified result was No growth a t 72 hours on 03/04/2023 at 110 1 CDT Blood No organisms No growth Previous Culture-Anaerobic isolated preliminar y (test code = 13382-8) verifi ed result was Culture In Progress on 03/01/2023 at 14 01 CDTPrevious preliminary verified result was No growth a t 24 hours on 03/02/2023 at 110 1 CDTPrevious preliminary verified result was No growth a t 48 hours on 03/03/2023 at 110 1 CDTPrevious preliminary verified result was No growth a t 72 hours on 03/04/2023 at 110 1 CDT Lab Interpretation Normal (test code = 05544-9) [facility] 13:41:35 Test Item Value Reference Range Interpretation Comments POCT GLU (test code = 0912712724) 187 mg/dL 70-110 H Lab Interpretation (test code = Abnormal 37083-8) [facility] 13:41:35 Test Item Value Reference Range Interpretation Comments POCT GLU (test code = 5330543778) 187 mg/dL 70-110 H Lab Interpretation (test code = Abnormal 02769-1) [facility] Packed RBC (in units), 1 Units 2023-03-06 13:01:17 Test Item Value Reference Range Interpretation Comments Cross Match Result Compatible (test code = 4409) ISBT Blood Type Code 5100 (test code = 716730) Unit Blood Type (test O Pos code = 4410) Unit Number (test [id number] code = 4411) Blood Expiration Date & Time (test code = 968641) Status Information Issued (test code = 4412) Product Red Blood Cells Identification (test code = 4413) Product Code (test [id number] Performed at [facility] code = 4414) Laboratory Services [facility] Blood [address] [address]Mwsl Free: [phone] A No. [id number] [facility] Packed RBC (in units), 1 Units 2023-03-06 13:01:17 Test Item Value Reference Range Interpretation Comments Cross Match Result Compatible (test code = 4409) ISBT Blood Type Code 5100 (test code = 960628) Unit Blood Type (test O Pos code = 4410) Unit Number (test [id number] code = 4411) Blood Expiration Date & Time (test code = 892036) Status Information Issued (test code = 4412) Product Red Blood Cells Identification (test code = 4413) Product Code (test [id number] Performed at [facility] code = 4414) Laboratory Services - [facility] Blood [address] s [address]Tlnz Free: [phone] A No. [id number] [facility] RBC (in units), 1 Units 2023-03-06 13:01:17 Test Item Value Reference Range Interpretation Comments Cross Match Result Compatible (test code = 4409) ISBT Blood Type Code 5100 (test code = 767777) Unit Blood Type (test O Pos code = 4410) Unit Number (test [id number] code = 4411) Blood Expiration Date [id number] & Time (test code = 149067) Status Information Issued (test code = 4412) Product Red Blood Cells Identification (test code = 4413) Product Code (test [id number] Performed at [facility] code = 4414) Laboratory Services - [facility] Blood [address] [address]Jbdz Free: [phone] A No. [id number] [facility] - ONCE [id number] 12:16:00 Test Item Value Reference Range Interpretation Comments ABO & RH (test code = 20) O POSITIVE IAT (test code = 1185) Negative [facility] and Screen - ONCE [id number] 12:16:00 Test Item Value Reference Range Interpretation Comments ABO & RH (test code = 20) O POSITIVE IAT (test code = 1185) Negative [facility] and Screen - ONCE [id number] 12:16:00 Test Item Value Reference Range Interpretation Comments ABO & RH (test code = 20) O POSITIVE IAT (test code = 1185) Negative [place] [id number] 09:03:04 Test Item Value Reference Range Interpretation Comments APTT Patient (test code 42 See_Comment H [Au tomated message] = 3173-2) The system [employer] generated this result transmitted ref erence range: 26 - 36 Seconds. The reference range was not used to int erpret this result as normal/abnormal . Lab Interpretation (test Abnormal code = 05749-9) [place] [id number] 09:03:04 Test Item Value Reference Range Interpretation Comments APTT Patient (test code 42 See_Comment H [Au tomated message] = 3173-2) The system [employer] generated this result transmitted ref erence range: 26 - 36 Seconds. The reference range was not used to int erpret this result as normal/abnormal . Lab Interpretation (test Abnormal code = 88253-6) [facility] WITHOUT DIFF - For acute bleeding or [id number] 08:56:04 Test Item Value Reference Range Interpretation Comments WBC (test code = 33.89 See_Comment H [Automated message] 6690-2) The system [employer] generated this result transmitted ref erence range: 4.20 - 1 0.70 10*3/?L. The reference range was not used to int erpret this result as normal/abnormal . RBC (test code = 789-8) 2.38 See_Comment L [Au tomated message] The system [employer] generated this result transmitted ref erence range: 4.26 - 5 .52 10*6/?L. The reference range was not used to int erpret this result as normal/abnormal . HGB (test code = 718-7) 7.1 g/dL 12.2-16.4 L HCT (test code = 22.3 % 38.4-49.3 L 4544-3) MCH (test code = 785-6) 29.8 pg 26.1-32.7 MCV (test code = 787-2) 93.7 fL 81.7-95.6 MCHC (test code = 31.8 g/dL 31.2-35.0 786-4) PLT (test code = 777-3) 51 See_Comment L [Au tomated message] The system [employer] generated this result transmitted ref erence range: 150 - 32 8 10*3/?L. The reference range was not used to int erpret this result as normal/abnormal . MPV (test code = Not Measure d 34088-6) RDW-CV (test code = 24.3 % 12.1-15.4 H 788-0) RDW-SD (test code = 78.3 fL 38.5-51.6 H 84799-8) NRBC x10^3 (test code = 0.08 See_Comment [Au tomated message] [id number]) The system [employer] generated this result transmitted ref erence range: 10*3/?L. The reference range was not used to int erpret this result as normal/abnormal . NRBC/100 WBC (test code 0.2 See_Comment [Au tomated message] = 3803499394) The system [facility] generated this result transmitted ref erence range: 0.0 - 10 .0 /100 WBCs. The reference range was not used to int erpret this result as normal/abnormal . IPF % (test code = 24.2 % 1.2-10.7 H Platelet count [id number]) measured by fluorescence me thod. Lab Interpretation Abnormal (test code = 41930-4) [facility] WITHOUT DIFF - For acute bleeding or [id number] 08:56:04 Test Item Value Reference Range Interpretation Comments WBC (test code = 33.89 See_Comment H [Automated message] 6690-2) The system [employer] generated this result transmitted ref erence range: 4.20 - 1 0.70 10*3/?L. The reference range was not used to int erpret this result as normal/abnormal . RBC (test code = 789-8) 2.38 See_Comment L [Au tomated message] The system [employer] generated this result transmitted ref erence range: 4.26 - 5 .52 10*6/?L. The reference range was not used to int erpret this result as normal/abnormal . HGB (test code = 718-7) 7.1 g/dL 12.2-16.4 L HCT (test code = 22.3 % 38.4-49.3 L 4544-3) MCH (test code = 785-6) 29.8 pg 26.1-32.7 MCV (test code = 787-2) 93.7 fL 81.7-95.6 MCHC (test code = 31.8 g/dL 31.2-35.0 786-4) PLT (test code = 777-3) 51 See_Comment L [Au tomated message] The system [employer] generated this result transmitted ref erence range: 150 - 32 8 10*3/?L. The reference range was not used to int erpret this result as normal/abnormal . MPV (test code = Not Measure d 09899-6) RDW-CV (test code = 24.3 % 12.1-15.4 H 788-0) RDW-SD (test code = 78.3 fL 38.5-51.6 H 93550-1) NRBC x10^3 (test code = 0.08 See_Comment [Au tomated message] 2540308598) The system [employer] generated this result transmitted ref erence range: 10*3/?L. The reference range was not used to int erpret this result as normal/abnormal . NRBC/100 WBC (test code 0.2 See_Comment [Au tomated message] = 4885819206) [facility] generated this result transmitted ref erence range: 0.0 - 10 .0 /100 WBCs. The reference range was not used to int erpret this result as normal/abnormal . IPF % (test code = 24.2 % 1.2-10.7 H Platelet count 7397752309) measured by fluorescence me thod. Lab Interpretation Abnormal (test code = 53211-3) [facility] WITHOUT DIFF - For acute bleeding or [id number] 08:56:04 Test Item Value Reference Range Interpretation Comments WBC (test code = 33.89 See_Comment H [Automated message] 6690-2) The system [employer] generated this result transmitted ref erence range: 4.20 - 1 0.70 10*3/?L. The reference range was not used to int erpret this result as normal/abnormal . RBC (test code = 789-8) 2.38 See_Comment L [Au tomated message] The system [employer] generated this result transmitted ref erence range: 4.26 - 5 .52 10*6/?L. The reference range was not used to int erpret this result as normal/abnormal . HGB (test code = 718-7) 7.1 g/dL 12.2-16.4 L HCT (test code = 22.3 % 38.4-49.3 L 4544-3) MCH (test code = 785-6) 29.8 pg 26.1-32.7 MCV (test code = 787-2) 93.7 fL 81.7-95.6 MCHC (test code = 31.8 g/dL 31.2-35.0 786-4) PLT (test code = 777-3) 51 See_Comment L [Au tomated message] The system [employer] generated this result transmitted ref erence range: 150 - 32 8 10*3/?L. The reference range was not used to int erpret this result as normal/abnormal . MPV (test code = Not Measure d 09663-9) RDW-CV (test code = 24.3 % 12.1-15.4 H 788-0) RDW-SD (test code = 78.3 fL 38.5-51.6 H 18046-1) NRBC x10^3 (test code = 0.08 See_Comment [Au tomated message] 4658171348) The system [employer] generated this result transmitted ref erence range: 10*3/?L. The reference range was not used to int erpret this result as normal/abnormal . NRBC/100 WBC (test code 0.2 See_Comment [Au tomated message] = 8594517544) The system [employer] generated this result transmitted ref erence range: 0.0 - 10 .0 /100 WBCs. The reference range was not used to int erpret this result as normal/abnormal . IPF % (test code = 24.2 % 1.2-10.7 H Platelet count 6306540481) measured by fluorescence me thod. Lab Interpretation Abnormal (test code = 33797-8) [facility]. METABOLIC PANEL ([id number])2023-03-06 08:55:03 Test Item Value Reference Range Interpretation Comments NA (test code = 139 mmol/L 135-145 3461380407) K (test code = 4.1 mmol/L 3.5-5.0 1043682605) CL (test code = 109 mmol/L 98-108 H 0212958517) CO2 TOTAL (test code = 21 mmol/L 23-31 L 4153021039) AGAP (test code = 9 2-16 9301751918) BUN (test code = 44 mg/dL 7-23 H 1091686556) GLUCOSE (test code = 169 mg/dL 70-110 H 6267194082) CREATININE (test code = 2.93 mg/dL 0.60-1.25 H 3545262295) TOTAL BILI (test code = 2.1 mg/dL 0.1-1.1 H 5418450254) CALCIUM (test code = 7.1 mg/dL 8.6-10.6 L 1396792971) T PROTEIN (test code = 5.6 g/dL 6.3-8.2 L 5712628240) ALBUMIN (test code = 2.5 g/dL 3.5-5.0 L 7492883539) ALK PHOS (test code = 85 U/L 34-122 3909256259) ALTv (test code = 44 U/L 5-50 1742-6) AST(SGOT) (test code = 80 U/L 13-40 H 8209428727) eGFR (test code = 22.0 mL/min/1.73m2 9343024271) MIKAYLA (test code = MIKAYLA) Association of Glomerular Filtration Rate (GFR) and Staging of Kidney Disease* + --+ --+ ------+| GFR (mL/min/1.73 m2) ?| With Kidney Damage ?| ?Without Kidney Damage+ --------+ --------+ +| ?>90 ?| ?Stage one ?| ? Normal ?+ ---+ ---+ -------+| ?60-89 ?| ?Stage two ?| ? Decreased GFR ? + --+ --+ ------+| ?30-59 ?| ?Stage three ?| ? Stage three ? + --+ --+ ------+| ?15-29 ?| ?Stage four ? | ? Stage four ?+ ---+ ---+ -------+| ?<15 (or dialysis) ? ?| ?Stage five ? | ? Stage five ?+ ---+ ---+ -------+ *Each stage assumes the associated GFR level has been in effect for at least three months. ?Stages 1 to 5, with or without kidney disease, indicate chronic kidney disease. Notes: Determination of stages one and two (with eGFR >59mL/min/1.73 m2) requires estimation of kidney damage for at least three months as defined by structural or functional abnormalities of the kidney, manifested by either:Pathological abnormalities or Markers of kidney damage (including abnormalities in the composition of the blood or urine or abnormalities in imaging tests). Lab Interpretation Abnormal (test code = 46735-7) [facility]. METABOLIC PANEL ([id number])2023-03-06 08:55:03 Test Item Value Reference Range Interpretation Comments NA (test code = 139 mmol/L 135-145 4969673048) K (test code = 4.1 mmol/L 3.5-5.0 0966860844) CL (test code = 109 mmol/L 98-108 H 6708361472) CO2 TOTAL (test code = 21 mmol/L 23-31 L 4723666368) AGAP (test code = 9 2-16 1777129881) BUN (test code = 44 mg/dL 7-23 H 1393091785) GLUCOSE (test code = 169 mg/dL 70-110 H 5798250977) CREATININE (test code = 2.93 mg/dL 0.60-1.25 H 3419124092) TOTAL BILI (test code = 2.1 mg/dL 0.1-1.1 H 7800853021) CALCIUM (test code = 7.1 mg/dL 8.6-10.6 L 2858364611) T PROTEIN (test code = 5.6 g/dL 6.3-8.2 L 9199295196) ALBUMIN (test code = 2.5 g/dL 3.5-5.0 L 4376662402) ALK PHOS (test code = 85 U/L 34-122 9532539734) ALTv (test code = 44 U/L 5-50 1742-6) AST(SGOT) (test code = 80 U/L 13-40 H 7273489435) eGFR (test code = 22.0 mL/min/1.73m2 7635224789) MIKAYLA (test code = MIKAYLA) Association of Glomerular Filtration Rate (GFR) and Staging of Kidney Disease* + --+ --+ ------+| GFR (mL/min/1.73 m2) ?| With Kidney Damage ?| ?Without Kidney Damage+ --------+ --------+ +| ?>90 ?| ?Stage one ?| ? Normal ?+ ---+ ---+ -------+| ?60-89 ?| ?Stage two ?| ? Decreased GFR ? + --+ --+ ------+| ?30-59 ?| ?Stage three ?| ? Stage three ? + --+ --+ ------+| ?15-29 ?| ?Stage four ? | ? Stage four ?+ ---+ ---+ -------+| ?<15 (or dialysis) ? ?| ?Stage five ? | ? Stage five ?+ ---+ ---+ -------+ *Each stage assumes the associated GFR level has been in effect for at least three months. ?Stages 1 to 5, with or without kidney disease, indicate chronic kidney disease. Notes: Determination of stages one and two (with eGFR >59mL/min/1.73 m2) requires estimation of kidney damage for at least three months as defined by structural or functional abnormalities of the kidney, manifested by either:Pathological abnormalities or Markers of kidney damage (including abnormalities in the composition of the blood or urine or abnormalities in imaging tests). Lab Interpretation Abnormal (test code = 40563-9) [facility]. METABOLIC PANEL ([id number])2023-03-06 08:55:03 Test Item Value Reference Range Interpretation Comments NA (test code = 139 mmol/L 135-145 9316720261) K (test code = 4.1 mmol/L 3.5-5.0 8336602285) CL (test code = 109 mmol/L 98-108 H 8169070079) CO2 TOTAL (test code = 21 mmol/L 23-31 L 1254092985) AGAP (test code = 9 2-16 9658439789) BUN (test code = 44 mg/dL 7-23 H 0531572974) GLUCOSE (test code = 169 mg/dL 70-110 H 2819151209) CREATININE (test code = 2.93 mg/dL 0.60-1.25 H 1284346829) TOTAL BILI (test code = 2.1 mg/dL 0.1-1.1 H 9525507511) CALCIUM (test code = 7.1 mg/dL 8.6-10.6 L 2125686791) T PROTEIN (test code = 5.6 g/dL 6.3-8.2 L 0517764127) ALBUMIN (test code = 2.5 g/dL 3.5-5.0 L 3568490494) ALK PHOS (test code = 85 U/L 34-122 3584540248) ALTv (test code = 44 U/L 5-50 1742-6) AST(SGOT) (test code = 80 U/L 13-40 H 6319224759) eGFR (test code = 22.0 mL/min/1.73m2 8291713467) MIKAYLA (test code = MIKAYLA) Association of Glomerular Filtration Rate (GFR) and Staging of Kidney Disease* + --+ --+ ------+| GFR (mL/min/1.73 m2) ?| With Kidney Damage ?| ?Without Kidney Damage+ --------+ --------+ +| ?>90 ?| ?Stage one ?| ? Normal ?+ ---+ ---+ -------+| ?60-89 ?| ?Stage two ?| ? Decreased GFR ? + --+ --+ ------+| ?30-59 ?| ?Stage three ?| ? Stage three ? + --+ --+ ------+| ?15-29 ?| ?Stage four ? | ? Stage four ?+ ---+ ---+ -------+| ?<15 (or dialysis) ? ?| ?Stage five ? | ? Stage five ?+ ---+ ---+ -------+ *Each stage assumes the associated GFR level has been in effect for at least three months. ?Stages 1 to 5, with or without kidney disease, indicate chronic kidney disease. Notes: Determination of stages one and two (with eGFR >59mL/min/1.73 m2) requires estimation of kidney damage for at least three months as defined by structural or functional abnormalities of the kidney, manifested by either:Pathological abnormalities or Markers of kidney damage (including abnormalities in the composition of the blood or urine or abnormalities in imaging tests). Lab Interpretation Abnormal (test code = 74117-7) [facility] Test Item Value Reference Range Interpretation Comments MAGNESIUM (test code = 2974467234) 2.2 mg/dL 1.7-2.4 Lab Interpretation (test code = Normal 88522-9) [facility] 08:55:03 Test Item Value Reference Range Interpretation Comments PHOSPHORUS (test code = 8913754415) 5.0 mg/dL 2.5-5.0 Lab Interpretation (test code = Normal 29706-4) [facility]IC [facility] ([id number])2023-03-06 08:55:03 Test Item Value Reference Range Interpretation Comments NA (test code = 139 mmol/L 135-145 0908627214) K (test code = 4.1 mmol/L 3.5-5.0 1782188700) CL (test code = 109 mmol/L 98-108 H 7942603310) CO2 TOTAL (test code = 21 mmol/L 23-31 L 2976113746) AGAP (test code = 9 2-16 3413260286) BUN (test code = 44 mg/dL 7-23 H 9897375596) GLUCOSE (test code = 169 mg/dL 70-110 H 8916988576) CREATININE (test code = 2.93 mg/dL 0.60-1.25 H 0497035068) TOTAL BILI (test code = 2.1 mg/dL 0.1-1.1 H 4610791938) CALCIUM (test code = 7.1 mg/dL 8.6-10.6 L 9521283340) T PROTEIN (test code = 5.6 g/dL 6.3-8.2 L 8685766912) ALBUMIN (test code = 2.5 g/dL 3.5-5.0 L 7443259481) ALK PHOS (test code = 85 U/L 34-122 3847098469) ALTv (test code = 44 U/L 5-50 1742-6) AST(SGOT) (test code = 80 U/L 13-40 H 8545845806) eGFR (test code = 22.0 mL/min/1.73m2 3951719168) MIKAYLA (test code = MIKAYLA) Association of Glomerular Filtration Rate (GFR) and Staging of Kidney Disease* + --+ --+ ------+| GFR (mL/min/1.73 m2) ?| With Kidney Damage ?| ?Without Kidney Damage+ --------+ --------+ +| ?>90 ?| ?Stage one ?| ? Normal ?+ ---+ ---+ -------+| ?60-89 ?| ?Stage two ?| ? Decreased GFR ? + --+ --+ ------+| ?30-59 ?| ?Stage three ?| ? Stage three ? + --+ --+ ------+| ?15-29 ?| ?Stage four ? | ? Stage four ?+ ---+ ---+ -------+| ?<15 (or dialysis) ? ?| ?Stage five ? | ? Stage five ?+ ---+ ---+ -------+ *Each stage assumes the associated GFR level has been in effect for at least three months. ?Stages 1 to 5, with or without kidney disease, indicate chronic kidney disease. Notes: Determination of stages one and two (with eGFR >59mL/min/1.73 m2) requires estimation of kidney damage for at least three months as defined by structural or functional abnormalities of the kidney, manifested by either:Pathological abnormalities or Markers of kidney damage (including abnormalities in the composition of the blood or urine or abnormalities in imaging tests). Lab Interpretation Abnormal (test code = 33944-4) [facility] 08:55:03 Test Item Value Reference Range Interpretation Comments MAGNESIUM (test code = 2829315681) 2.2 mg/dL 1.7-2.4 Lab Interpretation (test code = Normal 73489-1) [facility] 08:55:03 Test Item Value Reference Range Interpretation Comments PHOSPHORUS (test code = 1649274177) 5.0 mg/dL 2.5-5.0 Lab Interpretation (test code = Normal 73739-5) [facility] + LACTIC [id number] 08:32:32 Test Item Value Reference Range Interpretation Comments PH (test code = 7.34 7.32-7.42 6743744308) PCO2 ANANDA (test code = 41 See_Comment [Auto mated [id number]) message] The sy stem which generated this result transmitted reference range : 41 - 51 mmHg. The reference range was not used to interpret this result as normal/abnormal . PO2 ANANDA (test code = 41 See_Comment H [Autom ated 3086907559) message] The sy stem which generated this result transmitted reference range : 25 - 40 mmHg. The reference range was not used to interpret this result as normal/abnormal . HCO3 ANANDA (test code = 22 See_Comment L [Auto mated [id number]) message] The sy stem which generated this result transmitted reference range : 24 - 28 mEq/L. The reference range was not used to interpret this result as normal/abnormal . AC VBE(BEAKER) (test -3.9 mEq/L code = 4809728304) THB ANANDA (test code = 7.3 g/dL 13.5-18.0 LL 3884149848) %O2HB ANANDA (test code = 70.5 % 52.0-63.0 H 3891966486) %COHB ANANDA (test code = 1.0 % 0.0-1.5 9309399415) %METHB ANANDA (test code = 0.5 % 0.4-1.5 9826896455) VOL%O2 ANANDA (test code = 7.3 % 6.0-12.0 9492756762) NA (test code = 141 mmol/L 135-145 1324773068) K+ (test code = 4.0 mmol/L 3.5-5.0 7073112057) AC CA IONZ (test code = 4.20 mg/dL 4.50-5.30 L 3305283318) GLUCOSE (test code = 176 mg/dL 70-110 H 0484390791) LACTIC ACID (test code 1.34 mmol/L 0.50-2.20 = 1960349801) Lab Interpretation Abnormal (test code = 71815-8) [facility] [id number] 08:32:32 Test Item Value Reference Range Interpretation Comments PH (test code = 7.34 7.32-7.42 1064719702) PCO2 ANANDA (test code = 41 See_Comment [Auto mated 8268905611) message] The sy stem which generated this result transmitted reference range : 41 - 51 mmHg. The reference range was not used to interpret this result as normal/abnormal . PO2 ANANDA (test code = 41 See_Comment H [Autom ated 3334279017) message] The sy stem which generated this result transmitted reference range : 25 - 40 mmHg. The reference range was not used to interpret this result as normal/abnormal . HCO3 ANANDA (test code = 22 See_Comment L [Auto mated 8411856852) message] The sy stem which generated this result transmitted reference range : 24 - 28 mEq/L. The reference range was not used to interpret this result as normal/abnormal . AC VBE(BEAKER) (test -3.9 mEq/L code = 8401048767) THB ANANDA (test code = 7.3 g/dL 13.5-18.0 LL 7896357578) %O2HB ANANDA (test code = 70.5 % 52.0-63.0 H 3447907782) %COHB ANANDA (test code = 1.0 % 0.0-1.5 8165600832) %METHB ANANDA (test code = 0.5 % 0.4-1.5 5551770695) VOL%O2 ANANDA (test code = 7.3 % 6.0-12.0 8958309718) NA (test code = 141 mmol/L 135-145 9198778712) K+ (test code = 4.0 mmol/L 3.5-5.0 4332958352) AC CA IONZ (test code = 4.20 mg/dL 4.50-5.30 L 1839570637) GLUCOSE (test code = 176 mg/dL 70-110 H 1547590803) LACTIC ACID (test code 1.34 mmol/L 0.50-2.20 = 3357176442) Lab Interpretation Abnormal (test code = 27426-9) [facility] [id number] 08:32:32 Test Item Value Reference Range Interpretation Comments PH (test code = 7.34 7.32-7.42 3636999579) PCO2 ANANDA (test code = 41 See_Comment [Auto mated 0724688876) message] The sy stem which generated this result transmitted reference range : 41 - 51 mmHg. The reference range was not used to interpret this result as normal/abnormal . PO2 ANANDA (test code = 41 See_Comment H [Autom ated 2535256214) message] The sy stem which generated this result transmitted reference range : 25 - 40 mmHg. The reference range was not used to interpret this result as normal/abnormal . HCO3 ANANDA (test code = 22 See_Comment L [Auto mated 1988269991) message] The sy stem which generated this result transmitted reference range : 24 - 28 mEq/L. The reference range was not used to interpret this result as normal/abnormal . AC VBE(BEAKER) (test -3.9 mEq/L code = 1571702676) THB ANANDA (test code = 7.3 g/dL 13.5-18.0 LL 6644775436) %O2HB ANANDA (test code = 70.5 % 52.0-63.0 H 3027184728) %COHB ANANDA (test code = 1.0 % 0.0-1.5 7965843693) %METHB ANANDA (test code = 0.5 % 0.4-1.5 0637983294) VOL%O2 ANANDA (test code = 7.3 % 6.0-12.0 1154649385) NA (test code = 141 mmol/L 135-145 2497993175) K+ (test code = 4.0 mmol/L 3.5-5.0 6528880526) AC CA IONZ (test code = 4.20 mg/dL 4.50-5.30 L 6905203443) GLUCOSE (test code = 176 mg/dL 70-110 H 1366006720) LACTIC ACID (test code 1.34 mmol/L 0.50-2.20 = 0350482327) Lab Interpretation Abnormal (test code = 01157-5) [facility] [id number] 08:32:32 Test Item Value Reference Range Interpretation Comments PH (test code = 7.34 7.32-7.42 6085901379) PCO2 ANANDA (test code = 41 See_Comment [Auto mated 7437533414) message] The sy stem which generated this result transmitted reference range : 41 - 51 mmHg. The reference range was not used to interpret this result as normal/abnormal . PO2 ANANDA (test code = 41 See_Comment H [Autom ated 8412727108) message] The sy stem which generated this result transmitted reference range : 25 - 40 mmHg. The reference range was not used to interpret this result as normal/abnormal . HCO3 ANANDA (test code = 22 See_Comment L [Auto mated 4201812377) message] The sy stem which generated this result transmitted reference range : 24 - 28 mEq/L. The reference range was not used to interpret this result as normal/abnormal . AC VBE(BEAKER) (test -3.9 mEq/L code = 5193696794) THB ANANDA (test code = 7.3 g/dL 13.5-18.0 LL 2091151011) %O2HB ANANDA (test code = 70.5 % 52.0-63.0 H 1753493915) %COHB ANANDA (test code = 1.0 % 0.0-1.5 0797050574) %METHB ANANDA (test code = 0.5 % 0.4-1.5 1597151715) VOL%O2 ANANDA (test code = 7.3 % 6.0-12.0 9945365551) NA (test code = 141 mmol/L 135-145 5447519456) K+ (test code = 4.0 mmol/L 3.5-5.0 7364814058) AC CA IONZ (test code = 4.20 mg/dL 4.50-5.30 L 0766149335) GLUCOSE (test code = 176 mg/dL 70-110 H 9822392818) LACTIC ACID (test code 1.34 mmol/L 0.50-2.20 = 5295274615) Lab Interpretation Abnormal (test code = 04511-4) [facility] GLUCOSE (AUTOMATED)2023-03-06 05:05:56 Test Item Value Reference Range Interpretation Comments POCT GLU (test code = 9522693324) 177 mg/dL 70-110 H Lab Interpretation (test code = Abnormal 69111-1) [facility] GLUCOSE (AUTOMATED)2023-03-06 05:05:56 Test Item Value Reference Range Interpretation Comments POCT GLU (test code = 1700354786) 177 mg/dL 70-110 H Lab Interpretation (test code = Abnormal 02857-6) [facility] GLUCOSE (AUTOMATED)2023-03-06 01:34:41 Test Item Value Reference Range Interpretation Comments POCT GLU (test code = 0413911856) 194 mg/dL 70-110 H Lab Interpretation (test code = Abnormal 92476-7) [facility] GLUCOSE (AUTOMATED)2023-03-06 01:34:41 Test Item Value Reference Range Interpretation Comments POCT GLU (test code = 0463768511) 194 mg/dL 70-110 H Lab Interpretation (test code = Abnormal 81554-3) [facility] GLUCOSE (AUTOMATED)2023-03-06 01:34:40 Test Item Value Reference Range Interpretation Comments POCT GLU (test code = 6553477025) 12 mg/dL 70-110 LL Lab Interpretation (test code = Abnormal 85779-6) [facility] GLUCOSE (AUTOMATED)2023-03-06 01:34:40 Test Item Value Reference Range Interpretation Comments POCT GLU (test code = 1584246891) 12 mg/dL 70-110 LL Lab Interpretation (test code = Abnormal 03054-5) [facility] - For acute bleeding or [id number] 21:13:20 Test Item Value Reference Range Interpretation Comments WBC (test code = 31.81 See_Comment H [Automated message] 6690-2) The system [employer] generated this result transmitted ref erence range: 4.20 - 1 0.70 10*3/?L. The reference range was not used to int erpret this result as normal/abnormal . RBC (test code = 789-8) 2.48 See_Comment L [Au tomated message] The system [employer] generated this result transmitted ref erence range: 4.26 - 5 .52 10*6/?L. The reference range was not used to int erpret this result as normal/abnormal . HGB (test code = 718-7) 7.1 g/dL 12.2-16.4 L HCT (test code = 23.0 % 38.4-49.3 L 4544-3) MCH (test code = 785-6) 28.6 pg 26.1-32.7 MCV (test code = 787-2) 92.7 fL 81.7-95.6 MCHC (test code = 30.9 g/dL 31.2-35.0 L 786-4) PLT (test code = 777-3) 44 See_Comment LL [Au tomated message] The system [employer] generated this result transmitted ref erence range: 150 - 32 8 10*3/?L. The reference range was not used to int erpret this result as normal/abnormal . MPV (test code = Not Measure d 06882-3) RDW-CV (test code = 23.2 % 12.1-15.4 H 788-0) RDW-SD (test code = 73.2 fL 38.5-51.6 H 35443-5) NRBC x10^3 (test code = 0.07 See_Comment [Au tomated message] 5667297569) The system [employer] generated this result transmitted ref erence range: 10*3/?L. The reference range was not used to int erpret this result as normal/abnormal . NRBC/100 WBC (test code 0.2 See_Comment [Au tomated message] = 9304212547) The system [facility] generated this result transmitted ref erence range: 0.0 - 10 .0 /100 WBCs. The reference range was not used to int erpret this result as normal/abnormal . IPF % (test code = 22.4 % 1.2-10.7 H Platelet count 2656293473) measured by fluorescence me thod. Lab Interpretation Abnormal (test code = 21836-0) [facility]FF - For acute bleeding or [id number] 21:13:20 Test Item Value Reference Range Interpretation Comments WBC (test code = 31.81 See_Comment H [Automated message] 4490-2) The system [employer] generated this result transmitted ref erence range: 4.20 - 1 0.70 10*3/?L. The reference range was not used to int erpret this result as normal/abnormal . RBC (test code = 789-8) 2.48 See_Comment L [Au tomated message] The system [employer] generated this result transmitted ref erence range: 4.26 - 5 .52 10*6/?L. The reference range was not used to int erpret this result as normal/abnormal . HGB (test code = 718-7) 7.1 g/dL 12.2-16.4 L HCT (test code = 23.0 % 38.4-49.3 L 4544-3) MCH (test code = 785-6) 28.6 pg 26.1-32.7 MCV (test code = 787-2) 92.7 fL 81.7-95.6 MCHC (test code = 30.9 g/dL 31.2-35.0 L 786-4) PLT (test code = 777-3) 44 See_Comment LL [Au tomated message] The system [employer] generated this result transmitted ref erence range: 150 - 32 8 10*3/?L. The reference range was not used to int erpret this result as normal/abnormal . MPV (test code = Not Measure d 89921-4) RDW-CV (test code = 23.2 % 12.1-15.4 H 788-0) RDW-SD (test code = 73.2 fL 38.5-51.6 H 46423-2) NRBC x10^3 (test code = 0.07 See_Comment [Au tomated message] 8147200404) The system [employer] generated this result transmitted ref erence range: 10*3/?L. The reference range was not used to int erpret this result as normal/abnormal . NRBC/100 WBC (test code 0.2 See_Comment [Au tomated message] = 7781624987) The system [employer] generated this result transmitted ref erence range: 0.0 - 10 .0 /100 WBCs. The reference range was not used to int erpret this result as normal/abnormal . IPF % (test code = 22.4 % 1.2-10.7 H Platelet count 6003832141) measured by fluorescence me thod. Lab Interpretation Abnormal (test code = 99614-0) [facility] (for use with Heparin Infusion)2023-03-05 21:03:57 Test Item Value Reference Range Interpretation Comments APTT Patient (test code 49 See_Comment H [Au tomated message] = 3173-2) The system [employer] generated this result transmitted ref erence range: 26 - 36 Seconds. The reference range was not used to int erpret this result as normal/abnormal . Lab Interpretation (test Abnormal code = 23041-2) [facility] (for use with Heparin Infusion)2023-03-05 21:03:57 Test Item Value Reference Range Interpretation Comments APTT Patient (test code 49 See_Comment H [Au tomated message] = 3173-2) The system [employer] generated this result transmitted ref erence range: 26 - 36 Seconds. The reference range was not used to int erpret this result as normal/abnormal . Lab Interpretation (test Abnormal code = 32263-5) [place] [id number] 19:04:32 Test Item Value Reference Range Interpretation Comments APTT Patient (test code 47 See_Comment H [Au tomated message] = 3173-2) The system [employer] generated this result transmitted ref erence range: 26 - 36 Seconds. The reference range was not used to int erpret this result as normal/abnormal . Lab Interpretation (test Abnormal code = 77016-1) [place] [id number] 19:04:32 Test Item Value Reference Range Interpretation Comments APTT Patient (test code 47 See_Comment H [Au tomated message] = 3173-2) The system [employer] generated this result transmitted ref erence range: 26 - 36 Seconds. The reference range was not used to int erpret this result as normal/abnormal . Lab Interpretation (test Abnormal code = 71252-9) [facility] L[facility] [id number] 18:53:21 Test Item Value Reference Range Interpretation Comments PH (test code = 2) 7.41 7.35-7.45 PCO2 (test code = 34 See_Comment L [Automate d 5735816692) message] The sy stem which generated this result transmitted reference range : 35 - 45 mmHg. The reference range was not used to interpret this result as normal/abnormal . PO2 (test code = 355 See_Comment H [Automated 6667179858) message] The sy stem which generated this result transmitted reference range : 80 - 100 mmHg. The reference range was not used to interpret this result as normal/abnormal . HCO3 (test code = 21 See_Comment L [Automate d 6716280247) message] The sy stem which generated this result transmitted reference range : 22 - 26 mEq/L. The reference range was not used to interpret this result as normal/abnormal . BE (test code = -3.4 See_Comment L [Automated 8590177223) message] The sy stem which generated this result transmitted reference range : -3.0 - 3.0 mEq/ L. The reference r kyra was not used to interpret this result as normal/abnormal . THB (test code = 8.0 g/dL 13.5-18.0 LL 9304062695) %O2HB (test code = 98.6 % 94.0-99.0 3504075965) %COHB ART (test code = 1.1 % 0.0-1.5 1867223191) %METHB ART (test code = 0.3 % 0.4-1.5 L 1260257231) VOL%O2 ART (test code = 12.1 % 15.0-23.0 L 2772157301) NA (test code = 142 mmol/L 135-145 7556118176) K+ (test code = 3.9 mmol/L 3.5-5.0 4323310290) AC CA IONZ (test code = 4.40 mg/dL 4.50-5.30 L 5117046056) GLUCOSE (test code = 190 mg/dL 70-110 H 3366222583) LACTIC ACID (test code 1.49 mmol/L 0.50-2.20 = 6403092469) Lab Interpretation Abnormal (test code = 67437-2) [facility] L[facility] [id number] 18:53:21 Test Item Value Reference Range Interpretation Comments PH (test code = 2) 7.41 7.35-7.45 PCO2 (test code = 34 See_Comment L [Automate d 8992569999) message] The sy stem which generated this result transmitted reference range : 35 - 45 mmHg. The reference range was not used to interpret this result as normal/abnormal . PO2 (test code = 355 See_Comment H [Automated 3789226045) message] The sy stem which generated this result transmitted reference range : 80 - 100 mmHg. The reference range was not used to interpret this result as normal/abnormal . HCO3 (test code = 21 See_Comment L [Automate d 6595384264) message] The sy stem which generated this result transmitted reference range : 22 - 26 mEq/L. The reference range was not used to interpret this result as normal/abnormal . BE (test code = -3.4 See_Comment L [Automated 2726029060) message] The sy stem which generated this result transmitted reference range : -3.0 - 3.0 mEq/ L. The reference r kyra was not used to interpret this result as normal/abnormal . THB (test code = 8.0 g/dL 13.5-18.0 LL 3830621680) %O2HB (test code = 98.6 % 94.0-99.0 9160576749) %COHB ART (test code = 1.1 % 0.0-1.5 5959353035) %METHB ART (test code = 0.3 % 0.4-1.5 L 9182152522) VOL%O2 ART (test code = 12.1 % 15.0-23.0 L 6687765026) NA (test code = 142 mmol/L 135-145 0299975828) K+ (test code = 3.9 mmol/L 3.5-5.0 7367951252) AC CA IONZ (test code = 4.40 mg/dL 4.50-5.30 L 7887292144) GLUCOSE (test code = 190 mg/dL 70-110 H 1521162853) LACTIC ACID (test code 1.49 mmol/L 0.50-2.20 = 4115710660) Lab Interpretation Abnormal (test code = 66879-4) [facility] WITH [id number] 13:39:19 Test Item Value Reference Range Interpretation Comments WBC (test code = 34.46 See_Comment H [Automated 6690-2) message] The sy stem which generated this result transmitted reference range : 4.20 - 10.70 10*3/?L. The reference range was not used to interpret this result as normal/abnormal . RBC (test code = 2.77 See_Comment L [Automated 789-8) message] The sy stem which generated this result transmitted reference range : 4.26 - 5.52 10*6/?L. The reference range was not used to interpret this result as normal/abnormal . HGB (test code = 8.0 g/dL 12.2-16.4 L 718-7) HCT (test code = 25.5 % 38.4-49.3 L 4544-3) MCV (test code = 92.1 fL 81.7-95.6 787-2) MCH (test code = 28.9 pg 26.1-32.7 785-6) MCHC (test code = 31.4 g/dL 31.2-35.0 786-4) RDW-SD (test code = 70.1 fL 38.5-51.6 H 31678-6) RDW-CV (test code = 22.8 % 12.1-15.4 H 788-0) PLT (test code = 41 See_Comment LL [Automated 777-3) message] The sy stem which generated this result transmitted reference range : 150 - 328 10*3/ ?L. The reference r kyra was not used to interpret this result as normal/abnormal . MPV (test code = Not Measure d 15269-6) IPF % (test code = 26.3 % 1.2-10.7 H Platelet count 9764602483) measured by fluorescence method. NRBC/100 WBC (test 0.2 See_Comment [Automat ed code = 0171814454) message] The system which generated this result transmitted reference range : 0.0 - 10.0 /100 WBCs. The refer ence range was not u sed to interpret th is result as normal/abnormal . NRBC x10^3 (test code 0.08 See_Comment [Auto mated = 7605824224) message] The s ystem which generated this result transmitted reference range : 10*3/?L. The reference range was not used to interpret this result as normal/abnormal . GRAN MAT (NEUT) % 89.5 % (test code = 770-8) IMM GRAN % (test code 1.70 % = 7121178019) LYMPH % (test code = 3.7 % 736-9) MONO % (test code = 4.9 % 5905-5) EOS % (test code = 0.0 % 713-8) BASO % (test code = 0.2 % 706-2) GRAN MAT x10^3(ANC) 30.84 10*3/uL 1.99-6.95 H (test code = 5804435814) IMM GRAN x10^3 (test 0.60 10*3/uL 0.00-0.06 H code = 4590486091) LYMPH x10^3 (test 1.27 10*3/uL 1.09-3.23 code = 731-0) MONO x10^3 (test code 1.69 10*3/uL 0.36-1.02 H = 742-7) EOS x10^3 (test code 0.06-0.53 L = 711-2) BASO x10^3 (test code 0.06 10*3/uL 0.01-0.09 = 704-7) POLYCHROMASIA (test 2+ See_Comment [Automa che code = 39076-7) message] The system which generated this result transmitted reference range : 2+. The referen ce range was not u sed to interpret th is result as normal/abnormal . SCHISTOCYTES (test 1+ A code = 800-3) Lab Interpretation Abnormal (test code = 71638-5) [facility] WITH [id number] 13:39:19 Test Item Value Reference Range Interpretation Comments WBC (test code = 34.46 See_Comment H [Automated 6690-2) message] The sy stem which generated this result transmitted reference range : 4.20 - 10.70 10*3/?L. The reference range was not used to interpret this result as normal/abnormal . RBC (test code = 2.77 See_Comment L [Automated 789-8) message] The sy stem which generated this result transmitted reference range : 4.26 - 5.52 10*6/?L. The reference range was not used to interpret this result as normal/abnormal . HGB (test code = 8.0 g/dL 12.2-16.4 L 718-7) HCT (test code = 25.5 % 38.4-49.3 L 4544-3) MCV (test code = 92.1 fL 81.7-95.6 787-2) MCH (test code = 28.9 pg 26.1-32.7 785-6) MCHC (test code = 31.4 g/dL 31.2-35.0 786-4) RDW-SD (test code = 70.1 fL 38.5-51.6 H 16943-9) RDW-CV (test code = 22.8 % 12.1-15.4 H 788-0) PLT (test code = 41 See_Comment LL [Automated 777-3) message] The sy stem which generated this result transmitted reference range : 150 - 328 10*3/ ?L. The reference r kyra was not used to interpret this result as normal/abnormal . MPV (test code = Not Measure d 43179-8) IPF % (test code = 26.3 % 1.2-10.7 H Platelet count 1600019193) measured by fluorescence method. NRBC/100 WBC (test 0.2 See_Comment [Automat ed code = 7628919076) message] The system which generated this result transmitted reference range : 0.0 - 10.0 /100 WBCs. The refer ence range was not u sed to interpret th is result as normal/abnormal . NRBC x10^3 (test code 0.08 See_Comment [Auto mated = 4140463445) message] The s ystem which generated this result transmitted reference range : 10*3/?L. The reference range was not used to interpret this result as normal/abnormal . GRAN MAT (NEUT) % 89.5 % (test code = 770-8) IMM GRAN % (test code 1.70 % = 3532838669) LYMPH % (test code = 3.7 % 736-9) MONO % (test code = 4.9 % 5905-5) EOS % (test code = 0.0 % 713-8) BASO % (test code = 0.2 % 706-2) GRAN MAT x10^3(ANC) 30.84 10*3/uL 1.99-6.95 H (test code = 2984921963) IMM GRAN x10^3 (test 0.60 10*3/uL 0.00-0.06 H code = 0911837462) LYMPH x10^3 (test 1.27 10*3/uL 1.09-3.23 code = 731-0) MONO x10^3 (test code 1.69 10*3/uL 0.36-1.02 H = 742-7) EOS x10^3 (test code 0.06-0.53 L = 711-2) BASO x10^3 (test code 0.06 10*3/uL 0.01-0.09 = 704-7) POLYCHROMASIA (test 2+ See_Comment [Automa che code = 22541-4) message] The system which generated this result transmitted reference range : 2+. The referen ce range was not u sed to interpret th is result as normal/abnormal . SCHISTOCYTES (test 1+ A code = 800-3) Lab Interpretation Abnormal (test code = 25839-0) [facility] Test Item Value Reference Range Interpretation Comments APTT Patient (test code 48 See_Comment H [Au tomated message] = 3173-2) The system [employer] generated this result transmitted ref erence range: 26 - 36 Seconds. The reference range was not used to int erpret this result as normal/abnormal . Lab Interpretation (test Abnormal code = 02930-7) [facility] 13:12:16 Test Item Value Reference Range Interpretation Comments APTT Patient (test code 48 See_Comment H [Au tomated message] = 3173-2) The system [employer] generated this result transmitted ref erence range: 26 - 36 Seconds. The reference range was not used to int erpret this result as normal/abnormal . Lab Interpretation (test Abnormal code = 00624-7) [facility] GLUCOSE (AUTOMATED)2023-03-05 12:38:42 Test Item Value Reference Range Interpretation Comments POCT GLU (test code = 0948985038) 169 mg/dL 70-110 H Lab Interpretation (test code = Abnormal 72627-9) [facility] GLUCOSE (AUTOMATED)2023-03-05 12:38:42 Test Item Value Reference Range Interpretation Comments POCT GLU (test code = 1342384366) 169 mg/dL 70-110 H Lab Interpretation (test code = Abnormal 21218-0) [facility] Packed RBC (in units), 1 Units 2023-03-05 09:44:43 Test Item Value Reference Range Interpretation Comments Cross Match Result Compatible (test code = 4409) ISBT Blood Type Code 5100 (test code = 131989) Unit Blood Type (test O Pos code = 4410) Unit Number (test [id number] code = 4411) Blood Expiration Date & Time (test code = 130100) Status Information Issued (test code = 4412) Product Red Blood Cells Identification (test code = 4413) Product Code (test [id number] Performed at [facility] code = 4414) Laboratory Services - [address] [address]Zfqp Free: [phone] A No. [id number] [facility] Packed RBC (in units), 1 Units 2023-03-05 09:44:43 Test Item Value Reference Range Interpretation Comments Cross Match Result Compatible (test code = 4409) ISBT Blood Type Code 5100 (test code = 283016) Unit Blood Type (test O Pos code = 4410) Unit Number (test [id number] code = 4411) Blood Expiration Date & Time (test code = 613537) Status Information Issued (test code = 4412) Product Red Blood Cells Identification (test code = 4413) Product Code (test [id number] Performed at [facility] code = 4414) Laboratory Services - [facility] [address] [address]Ddpi Free: [phone] A No. [id number] [facility] Lactic [id number] 09:00:06 Test Item Value Reference Range Interpretation Comments PH (test code = 2) 7.41 7.35-7.45 PCO2 (test code = 36 See_Comment [Automate d [id number]) message] The sy stem which generated this result transmitted reference range : 35 - 45 mmHg. The reference range was not used to interpret this result as normal/abnormal . PO2 (test code = 137 See_Comment H [Automated [id number]) message] The sy stem which generated this result transmitted reference range : 80 - 100 mmHg. The reference range was not used to interpret this result as normal/abnormal . HCO3 (test code = 22 See_Comment [Automate d 5987622434) message] The sy stem which generated this result transmitted reference range : 22 - 26 mEq/L. The reference range was not used to interpret this result as normal/abnormal . BE (test code = -2.0 See_Comment [Automated [id number]) message] The sy stem which generated this result transmitted reference range : -3.0 - 3.0 mEq/ L. The reference r kyra was not used to interpret this result as normal/abnormal . THB (test code = 9.0 g/dL 13.5-18.0 L 5687113044) %O2HB (test code = 97.5 % 94.0-99.0 8443998918) %COHB ART (test code = 1.1 % 0.0-1.5 8466749420) %METHB ART (test code = 0.2 % 0.4-1.5 L 2115490327) VOL%O2 ART (test code = 12.6 % 15.0-23.0 L 2711503073) NA (test code = 142 mmol/L 135-145 3741039979) K+ (test code = 3.8 mmol/L 3.5-5.0 7540291982) AC CA IONZ (test code = 4.60 mg/dL 4.50-5.30 7947045084) GLUCOSE (test code = 163 mg/dL 70-110 H 5775301835) LACTIC ACID (test code 1.90 mmol/L 0.50-2.20 = 3815330910) Lab Interpretation Abnormal (test code = 29843-6) [facility] [id number] 09:00:06 Test Item Value Reference Range Interpretation Comments PH (test code = 2) 7.41 7.35-7.45 PCO2 (test code = 36 See_Comment [Automate d 9428017428) message] The sy stem which generated this result transmitted reference range : 35 - 45 mmHg. The reference range was not used to interpret this result as normal/abnormal . PO2 (test code = 137 See_Comment H [Automated [id number]) message] The sy stem which generated this result transmitted reference range : 80 - 100 mmHg. The reference range was not used to interpret this result as normal/abnormal . HCO3 (test code = 22 See_Comment [Automate d 1933448504) message] The sy stem which generated this result transmitted reference range : 22 - 26 mEq/L. The reference range was not used to interpret this result as normal/abnormal . BE (test code = -2.0 See_Comment [Automated 7100563394) message] The sy stem which generated this result transmitted reference range : -3.0 - 3.0 mEq/ L. The reference r kyra was not used to interpret this result as normal/abnormal . THB (test code = 9.0 g/dL 13.5-18.0 L 9232718168) %O2HB (test code = 97.5 % 94.0-99.0 1872424699) %COHB ART (test code = 1.1 % 0.0-1.5 3337758108) %METHB ART (test code = 0.2 % 0.4-1.5 L 0295271239) VOL%O2 ART (test code = 12.6 % 15.0-23.0 L 3573193674) NA (test code = 142 mmol/L 135-145 0271749430) K+ (test code = 3.8 mmol/L 3.5-5.0 3041667310) AC CA IONZ (test code = 4.60 mg/dL 4.50-5.30 1939893337) GLUCOSE (test code = 163 mg/dL 70-110 H 4207040357) LACTIC ACID (test code 1.90 mmol/L 0.50-2.20 = 8348722383) Lab Interpretation Abnormal (test code = 28017-6) [facility] Lactic [id number] 04:49:35 Test Item Value Reference Range Interpretation Comments PH (test code = 2) 7.43 7.35-7.45 PCO2 (test code = 29 See_Comment L [Automate d 3363298999) message] The sy stem which generated this result transmitted reference range : 35 - 45 mmHg. The reference range was not used to interpret this result as normal/abnormal . PO2 (test code = 164 See_Comment H [Automated 0315976146) message] The sy stem which generated this result transmitted reference range : 80 - 100 mmHg. The reference range was not used to interpret this result as normal/abnormal . HCO3 (test code = 19 See_Comment L [Automate d 4514797727) message] The sy stem which generated this result transmitted reference range : 22 - 26 mEq/L. The reference range was not used to interpret this result as normal/abnormal . BE (test code = -4.6 See_Comment L [Automated 2951196618) message] The sy stem which generated this result transmitted reference range : -3.0 - 3.0 mEq/ L. The reference r kyra was not used to interpret this result as normal/abnormal . THB (test code = 9.9 g/dL 13.5-18.0 L 5934010740) %O2HB (test code = 98.5 % 94.0-99.0 2404380534) %COHB ART (test code = 0.7 % 0.0-1.5 8467908904) %METHB ART (test code = 0.0 % 0.4-1.5 L 8128490606) VOL%O2 ART (test code = 14.1 % 15.0-23.0 L 5611477540) NA (test code = 141 mmol/L 135-145 5061145062) K+ (test code = 4.0 mmol/L 3.5-5.0 1452815349) AC CA IONZ (test code = 4.60 mg/dL 4.50-5.30 8841662831) GLUCOSE (test code = 150 mg/dL 70-110 H 2382724109) LACTIC ACID (test code 1.52 mmol/L 0.50-2.20 = 8697162573) Lab Interpretation Abnormal (test code = 55421-6) [facility] Lactic [id number] 04:49:35 Test Item Value Reference Range Interpretation Comments PH (test code = 2) 7.43 7.35-7.45 PCO2 (test code = 29 See_Comment L [Automate d 3335763565) message] The sy stem which generated this result transmitted reference range : 35 - 45 mmHg. The reference range was not used to interpret this result as normal/abnormal . PO2 (test code = 164 See_Comment H [Automated 2113415416) message] The sy stem which generated this result transmitted reference range : 80 - 100 mmHg. The reference range was not used to interpret this result as normal/abnormal . HCO3 (test code = 19 See_Comment L [Automate d 1327831091) message] The sy stem which generated this result transmitted reference range : 22 - 26 mEq/L. The reference range was not used to interpret this result as normal/abnormal . BE (test code = -4.6 See_Comment L [Automated 0799259845) message] The sy stem which generated this result transmitted reference range : -3.0 - 3.0 mEq/ L. The reference r kyra was not used to interpret this result as normal/abnormal . THB (test code = 9.9 g/dL 13.5-18.0 L 7045158393) %O2HB (test code = 98.5 % 94.0-99.0 0993030973) %COHB ART (test code = 0.7 % 0.0-1.5 8214365304) %METHB ART (test code = 0.0 % 0.4-1.5 L 9737691834) VOL%O2 ART (test code = 14.1 % 15.0-23.0 L 2739060589) NA (test code = 141 mmol/L 135-145 8808950621) K+ (test code = 4.0 mmol/L 3.5-5.0 7626294402) AC CA IONZ (test code = 4.60 mg/dL 4.50-5.30 0714196561) GLUCOSE (test code = 150 mg/dL 70-110 H 8763419584) LACTIC ACID (test code 1.52 mmol/L 0.50-2.20 = 7393323847) Lab Interpretation Abnormal (test code = 47057-3) [facility] GLUCOSE (AUTOMATED)2023-03-05 01:09:13 Test Item Value Reference Range Interpretation Comments POCT GLU (test code = 6227538571) 194 mg/dL 70-110 H Lab Interpretation (test code = Abnormal 87812-6) [facility] GLUCOSE (AUTOMATED)2023-03-05 01:09:13 Test Item Value Reference Range Interpretation Comments POCT GLU (test code = 3654699140) 194 mg/dL 70-110 H Lab Interpretation (test code = Abnormal 57014-5) [place] 55509023-07-04 00:09:40 Test Item Value Reference Range Interpretation Comments APTT Patient (test code 59 See_Comment H [Au tomated message] = 3173-2) The system [employer] generated this result transmitted ref erence range: 26 - 36 Seconds. The reference range was not used to int erpret this result as normal/abnormal . Lab Interpretation (test Abnormal code = 07713-6) [place] 55509023-07-04 00:09:40 Test Item Value Reference Range Interpretation Comments APTT Patient (test code 59 See_Comment H [Au tomated message] = 3173-2) The system [employer] generated this result transmitted ref erence range: 26 - 36 Seconds. The reference range was not used to int erpret this result as normal/abnormal . Lab Interpretation (test Abnormal code = 90177-2) [facility] Test Item Value Reference Range Interpretation Comments Fibrinogen (test code = 2205262568) 289 mg/dL 167-453 Lab Interpretation (test code = Normal 52155-0) [facility]2023-07-03 22:19:45 Test Item Value Reference Range Interpretation Comments Fibrinogen (test code = 6906144742) 289 mg/dL 167-453 Lab Interpretation (test code = Normal 87346-3) [facility] GLUCOSE (AUTOMATED)2023-03-04 21:56:06 Test Item Value Reference Range Interpretation Comments POCT GLU (test code = 0511104580) 240 mg/dL 70-110 H Lab Interpretation (test code = Abnormal 72807-2) [facility] 21:56:06 Test Item Value Reference Range Interpretation Comments POCT GLU (test code = 2211483086) 240 mg/dL 70-110 H Lab Interpretation (test code = Abnormal 73240-1) [facility] - For acute bleeding or jbadxfdb8698-00-48 18:51:06 Test Item Value Reference Range Interpretation Comments WBC (test code = 36.42 See_Comment H [Automated message] 6690-2) The system [employer] generated this result transmitted ref erence range: 4.20 - 1 0.70 10*3/?L. The reference range was not used to int erpret this result as normal/abnormal . RBC (test code = 789-8) 2.63 See_Comment L [Au tomated message] The system [employer] generated this result transmitted ref erence range: 4.26 - 5 .52 10*6/?L. The reference range was not used to int erpret this result as normal/abnormal . HGB (test code = 718-7) 7.7 g/dL 12.2-16.4 L HCT (test code = 25.4 % 38.4-49.3 L 4544-3) MCH (test code = 785-6) 29.3 pg 26.1-32.7 MCV (test code = 787-2) 96.6 fL 81.7-95.6 H MCHC (test code = 30.3 g/dL 31.2-35.0 L 786-4) PLT (test code = 777-3) 51 See_Comment L [Au tomated message] The system [employer] generated this result transmitted ref erence range: 150 - 32 8 10*3/?L. The reference range was not used to int erpret this result as normal/abnormal . MPV (test code = Not Measure d 49999-5) RDW-CV (test code = 19.7 % 12.1-15.4 H 788-0) RDW-SD (test code = 64.9 fL 38.5-51.6 H 45869-7) NRBC x10^3 (test code = 0.15 See_Comment [Au tomated message] 6045524265) The system [employer] generated this result transmitted ref erence range: 10*3/?L. The reference range was not used to int erpret this result as normal/abnormal . NRBC/100 WBC (test code 0.4 See_Comment [Au tomated message] = 0723012459) [facility] generated this result transmitted ref erence range: 0.0 - 10 .0 /100 WBCs. The reference range was not used to int erpret this result as normal/abnormal . IPF % (test code = 26.6 % 1.2-10.7 H Platelet count 6486713799) measured by fluorescence me thod. Lab Interpretation Abnormal (test code = 67997-4) [facility] - For acute bleeding or mvgspbno2012-00-19 18:51:06 Test Item Value Reference Range Interpretation Comments WBC (test code = 36.42 See_Comment H [Automated message] 6690-2) The system [employer] generated this result transmitted ref erence range: 4.20 - 1 0.70 10*3/?L. The reference range was not used to int erpret this result as normal/abnormal . RBC (test code = 789-8) 2.63 See_Comment L [Au tomated message] The system [employer] generated this result transmitted ref erence range: 4.26 - 5 .52 10*6/?L. The reference range was not used to int erpret this result as normal/abnormal . HGB (test code = 718-7) 7.7 g/dL 12.2-16.4 L HCT (test code = 25.4 % 38.4-49.3 L 4544-3) MCH (test code = 785-6) 29.3 pg 26.1-32.7 MCV (test code = 787-2) 96.6 fL 81.7-95.6 H MCHC (test code = 30.3 g/dL 31.2-35.0 L 786-4) PLT (test code = 777-3) 51 See_Comment L [Au tomated message] The system [employer] generated this result transmitted ref erence range: 150 - 32 8 10*3/?L. The reference range was not used to int erpret this result as normal/abnormal . MPV (test code = Not Measure d 93719-3) RDW-CV (test code = 19.7 % 12.1-15.4 H 788-0) RDW-SD (test code = 64.9 fL 38.5-51.6 H 44380-9) NRBC x10^3 (test code = 0.15 See_Comment [Au tomated message] 9584424005) The system [employer] generated this result transmitted ref erence range: 10*3/?L. The reference range was not used to int erpret this result as normal/abnormal . NRBC/100 WBC (test code 0.4 See_Comment [Au tomated message] = 4988777628) The system [employer] generated this result transmitted ref erence range: 0.0 - 10 .0 /100 WBCs. The reference range was not used to int erpret this result as normal/abnormal . IPF % (test code = 26.6 % 1.2-10.7 H Platelet count 6910456206) measured by fluorescence me thod. Lab Interpretation Abnormal (test code = 46486-5) [facility] [id number] 17:48:56 Test Item Value Reference Range Interpretation Comments K (test code = 2609167074) 4.6 mmol/L 3.5-5.0 Lab Interpretation (test code = Normal 42982-1) [facility] [id number] 17:48:56 Test Item Value Reference Range Interpretation Comments K (test code = 2676712455) 4.6 mmol/L 3.5-5.0 Lab Interpretation (test code = Normal 75055-5) [facility] [id number] 17:48:56 Test Item Value Reference Range Interpretation Comments K (test code = 5472482324) 4.6 mmol/L 3.5-5.0 Lab Interpretation (test code = Normal 31799-3) [facility] [id number] 17:48:56 Test Item Value Reference Range Interpretation Comments K (test code = 8509791866) 4.6 mmol/L 3.5-5.0 Lab Interpretation (test code = Normal 59258-0) [facility] (for use with Heparin Infusion)2023-03-04 17:40:16 Test Item Value Reference Range Interpretation Comments APTT Patient (test code 64 See_Comment H [Au tomated message] = 3173-2) The system [employer] generated this result transmitted ref erence range: 26 - 36 Seconds. The reference range was not used to int erpret this result as normal/abnormal . Lab Interpretation (test Abnormal code = 95800-8) [facility] (for use with Heparin Infusion)2023-03-04 17:40:16 Test Item Value Reference Range Interpretation Comments APTT Patient (test code 64 See_Comment H [Au tomated message] = 3173-2) The system [employer] generated this result transmitted ref erence range: 26 - 36 Seconds. The reference range was not used to int erpret this result as normal/abnormal . Lab Interpretation (test Abnormal code = 13677-2) [facility] Lactic [id number] 17:06:25 Test Item Value Reference Range Interpretation Comments PH (test code = 2) 7.37 7.35-7.45 PCO2 (test code = 36 See_Comment [Automate d 1736685015) message] The sy stem which generated this result transmitted reference range : 35 - 45 mmHg. The reference range was not used to interpret this result as normal/abnormal . PO2 (test code = 150 See_Comment H [Automated 0968048774) message] The sy stem which generated this result transmitted reference range : 80 - 100 mmHg. The reference range was not used to interpret this result as normal/abnormal . HCO3 (test code = 20 See_Comment L [Automate d 2520878762) message] The sy stem which generated this result transmitted reference range : 22 - 26 mEq/L. The reference range was not used to interpret this result as normal/abnormal . BE (test code = -4.8 See_Comment L [Automated 9477986955) message] The sy stem which generated this result transmitted reference range : -3.0 - 3.0 mEq/ L. The reference r kyra was not used to interpret this result as normal/abnormal . THB (test code = 8.0 g/dL 13.5-18.0 LL 8503850397) %O2HB (test code = 97.8 % 94.0-99.0 3933203588) %COHB ART (test code = 1.0 % 0.0-1.5 3745943591) %METHB ART (test code = 0.3 % 0.4-1.5 L 7691669613) VOL%O2 ART (test code = 11.3 % 15.0-23.0 L 8401302417) NA (test code = 141 mmol/L 135-145 6333303384) K+ (test code = 4.6 mmol/L 3.5-5.0 8042914224) AC CA IONZ (test code = 4.30 mg/dL 4.50-5.30 L 5050069883) GLUCOSE (test code = 242 mg/dL 70-110 H 0882503500) LACTIC ACID (test code 1.80 mmol/L 0.50-2.20 = 1278197184) Lab Interpretation Abnormal (test code = 23288-4) [facility] Lactic Jzes8833-14-25 17:06:25 Test Item Value Reference Range Interpretation Comments PH (test code = 2) 7.37 7.35-7.45 PCO2 (test code = 36 See_Comment [Automate d 0214457881) message] The sy stem which generated this result transmitted reference range : 35 - 45 mmHg. The reference range was not used to interpret this result as normal/abnormal . PO2 (test code = 150 See_Comment H [Automated 6031033114) message] The sy stem which generated this result transmitted reference range : 80 - 100 mmHg. The reference range was not used to interpret this result as normal/abnormal . HCO3 (test code = 20 See_Comment L [Automate d 1161445426) message] The sy stem which generated this result transmitted reference range : 22 - 26 mEq/L. The reference range was not used to interpret this result as normal/abnormal . BE (test code = -4.8 See_Comment L [Automated 0029044421) message] The sy stem which generated this result transmitted reference range : -3.0 - 3.0 mEq/ L. The reference r kyra was not used to interpret this result as normal/abnormal . THB (test code = 8.0 g/dL 13.5-18.0 LL 5839222896) %O2HB (test code = 97.8 % 94.0-99.0 0357626557) %COHB ART (test code = 1.0 % 0.0-1.5 4658081005) %METHB ART (test code = 0.3 % 0.4-1.5 L 6881851850) VOL%O2 ART (test code = 11.3 % 15.0-23.0 L 8015702767) NA (test code = 141 mmol/L 135-145 1818332171) K+ (test code = 4.6 mmol/L 3.5-5.0 6475004236) AC CA IONZ (test code = 4.30 mg/dL 4.50-5.30 L 1622713446) GLUCOSE (test code = 242 mg/dL 70-110 H 5910776768) LACTIC ACID (test code 1.80 mmol/L 0.50-2.20 = 0873987114) Lab Interpretation Abnormal (test code = 37333-7) [facility] Test Item Value Reference Range Interpretation Comments APTT Patient (test code 74 See_Comment H [Au tomated message] = 3173-2) The system [employer] generated this result transmitted ref erence range: 26 - 36 Seconds. The reference range was not used to int erpret this result as normal/abnormal . Lab Interpretation (test Abnormal code = 87324-3) [facility] Test Item Value Reference Range Interpretation Comments APTT Patient (test code 74 See_Comment H [Au tomated message] = 3173-2) The system [employer] generated this result transmitted ref erence range: 26 - 36 Seconds. The reference range was not used to int erpret this result as normal/abnormal . Lab Interpretation (test Abnormal code = 86899-0) [facility] ([facility]), 1 Units 2023-03-04 13:44:44 Test Item Value Reference Range Interpretation Comments Cross Match Result Compatible (test code = 4409) ISBT Blood Type Code 5100 (test code = 316657) Unit Blood Type (test O Pos code = 4410) Unit Number (test [id number] code = 4411) Blood Expiration Date & Time (test code = 450183) Status Information Issued (test code = 4412) Product Red Blood Cells Identification (test code = 4413) Product Code (test [id number] Performed at [facility] code = 4414) Laboratory Services - [facility] Blood [address] [address] Free: [phone] A No. [id number] [facility] (in units), 1 Units 2023-03-04 13:44:44 Test Item Value Reference Range Interpretation Comments Cross Match Result Compatible (test code = 4409) ISBT Blood Type Code 5100 (test code = 380858) Unit Blood Type (test O Pos code = 4410) Unit Number (test [id number] code = 4411) Blood Expiration Date [id number] & Time (test code = 363455) Status Information Issued (test code = 4412) Product Red Blood Cells Identification (test code = 4413) Product Code (test [id number] Performed at [facility] code = 4414) Laboratory Services - [facility] Blood [address] [address] Free: [phone] A No. [id number] [facility] GLUCOSE (AUTOMATED)2023-03-04 13:15:44 Test Item Value Reference Range Interpretation Comments POCT GLU (test code = 0685189107) 251 mg/dL 70-110 H Lab Interpretation (test code = Abnormal 94625-6) [facility] GLUCOSE (AUTOMATED)2023-03-04 13:15:44 Test Item Value Reference Range Interpretation Comments POCT GLU (test code = 8180455495) 251 mg/dL 70-110 H Lab Interpretation (test code = Abnormal 62478-0) [facility] 11:13:48 Test Item Value Reference Range Interpretation Comments Procalcitonin (test 15.10 ng/mL <=0.07 H code = 9255388420) MIKAYLA (test code = MIKAYLA) INTERPRETATION OF PROCALCITONIN RESULTS IN ADULTS >= 18 YEARS OF AGE Initiation and discontinuation of antibiotics on patients with suspected or confirmed Lower Respiratory Tract Infection in Adults >= 18 years of age. + +-------- --------+ + -----+|Procalcitonin |Interpretation ?|Antibiotic ? ? |Considerations ? |ng/mL ? | ?|recommendation | ? + +-------- --------+ + -----+| <0.1 ? | Bacterial ? ? ?| Strongly ? ? ?| ? | ?| infection very | discouraged ? | Overruling: ? | ?| unlikely ? ? ? | ? | ? Clinically unstable ? ? ? + +-------- --------+ + ? High risk for adverse ? ? | <0.25 ?| Bacterial ? ? ?| Discouraged ? | ? outcome ? | ?| infection ? ? ?| ? | ? SEE IMPORTANT NOTE ?| ?| unlikely ? ? ? | ? | ? + +-------- --------+ + -----+| >=0.25 ? ? ? | Bacterial ? ? ?| Encouraged ? ?| ? | ?| infection ? ? ?| ? | ? | ?| likely ? | ? | Consider treatment failure ?+ +------- ---------+ -+ if levels does not decrease | >0.5 ? | Bacterial ? ? ?| Strongly ? ? ?| appropriately ? | ?| infection very | encouraged ? ?| ? | ?| likely ? | ? | ? + +-------- --------+ + -----+ Discontinuation of antibiotics in high-acuity patients with suspected or confirmed sepsis in Adults >= 18 years of age. + +-------- --------+ + -----+|Procalcitonin |Interpretation ?|Antibiotic ? ? |Considerations ? |ng/mL ? | ?|recommendation | ? + +-------- --------+ + -----+| <0.25 ?| Bacterial ? ? ?| Strongly ? ? ?| ? | ?| infection very | discouraged ? | Overruling: ? | ?| unlikely ? ? ? | ? | ? Clinically unstable ? ? ? + +-------- --------+ + ? High risk for adverse ? ? | <0.5 or drop | Bacterial ? ? ?| Discouraged ? | ? outcome ? | >80% from ? ?| infection ? ? ?| ? | ? SEE IMPORTANT NOTE ?| highest PCT ?| unlikely ? ? ? | ? | ? | level ?| ?| ? | ? + +-------- --------+ + -----+| >=0.5 ?| Bacterial ? ? ?| Encouraged ? ?| ? | ?| infection ? ? ?| ? | ? | ?| likely ? | ? | Consider treatment failure ?+ +------- ---------+ -+ if levels does not decrease | >1.0 ? | Bacterial ? ? ?| Strongly ? ? ?| appropriately ? | ?| infection very | encouraged ? ?| ? | ?| likely ? | ? | ? + +-------- --------+ + -----+ Percentage of drop of Procalcitonin calculation for Discontinuation of antibiotics in high-acuity patients with suspected or confirmed sepsis in Adults >= 18 years of age. ? Procalcitonin highest{}-Procalcitonin current{}Delta Procalcitonin = x100% ? Procalcitonin current {} IMPORTANT NOTE: Procalcitonin may be elevated without bacterial infection by physiologic stress related to trauma, bazzi, chronic dialysis, metastatic cancer, surgery in the past seven days, malaria, some fungal infections, and some forms of vasculitis. The interpretation algorithm may not apply to patients with immunosuppression (equivalent of >10 mg of prednisone daily), HIV with CD4 cell count < 350 cells/mm3, active malignancy on systemic chemotherapy, solid organ transplant or hematopoietic stem cell transplantation, or hospital acquired pneumonia. Additionally, some clinical trials of procalcitonin have excluded patients with shock requiring vasopressor use, acute respiratory failure requiring mechanical ventilation, or those with known lung abscess/empyema. For further information please refer to:[email or web address] Lab Interpretation Abnormal (test code = 88212-2) [facility] 11:13:48 Test Item Value Reference Range Interpretation Comments Procalcitonin (test 15.10 ng/mL <=0.07 H code = 7879109623) MIKAYLA (test code = MIKAYLA) INTERPRETATION OF PROCALCITONIN RESULTS IN ADULTS >= 18 YEARS OF AGE Initiation and discontinuation of antibiotics on patients with suspected or confirmed Lower Respiratory Tract Infection in Adults >= 18 years of age. + +-------- --------+ + -----+|Procalcitonin |Interpretation ?|Antibiotic ? ? |Considerations ? |ng/mL ? | ?|recommendation | ? + +-------- --------+ + -----+| <0.1 ? | Bacterial ? ? ?| Strongly ? ? ?| ? | ?| infection very | discouraged ? | Overruling: ? | ?| unlikely ? ? ? | ? | ? Clinically unstable ? ? ? + +-------- --------+ + ? High risk for adverse ? ? | <0.25 ?| Bacterial ? ? ?| Discouraged ? | ? outcome ? | ?| infection ? ? ?| ? | ? SEE IMPORTANT NOTE ?| ?| unlikely ? ? ? | ? | ? + +-------- --------+ + -----+| >=0.25 ? ? ? | Bacterial ? ? ?| Encouraged ? ?| ? | ?| infection ? ? ?| ? | ? | ?| likely ? | ? | Consider treatment failure ?+ +------- ---------+ -+ if levels does not decrease | >0.5 ? | Bacterial ? ? ?| Strongly ? ? ?| appropriately ? | ?| infection very | encouraged ? ?| ? | ?| likely ? | ? | ? + +-------- --------+ + -----+ Discontinuation of antibiotics in high-acuity patients with suspected or confirmed sepsis in Adults >= 18 years of age. + +-------- --------+ + -----+|Procalcitonin |Interpretation ?|Antibiotic ? ? |Considerations ? |ng/mL ? | ?|recommendation | ? + +-------- --------+ + -----+| <0.25 ?| Bacterial ? ? ?| Strongly ? ? ?| ? | ?| infection very | discouraged ? | Overruling: ? | ?| unlikely ? ? ? | ? | ? Clinically unstable ? ? ? + +-------- --------+ + ? High risk for adverse ? ? | <0.5 or drop | Bacterial ? ? ?| Discouraged ? | ? outcome ? | >80% from ? ?| infection ? ? ?| ? | ? SEE IMPORTANT NOTE ?| highest PCT ?| unlikely ? ? ? | ? | ? | level ?| ?| ? | ? + +-------- --------+ + -----+| >=0.5 ?| Bacterial ? ? ?| Encouraged ? ?| ? | ?| infection ? ? ?| ? | ? | ?| likely ? | ? | Consider treatment failure ?+ +------- ---------+ -+ if levels does not decrease | >1.0 ? | Bacterial ? ? ?| Strongly ? ? ?| appropriately ? | ?| infection very | encouraged ? ?| ? | ?| likely ? | ? | ? + +-------- --------+ + -----+ Percentage of drop of Procalcitonin calculation for Discontinuation of antibiotics in high-acuity patients with suspected or confirmed sepsis in Adults >= 18 years of age. ? Procalcitonin highest{}-Procalcitonin current{}Delta Procalcitonin = x100% ? Procalcitonin current {} IMPORTANT NOTE: Procalcitonin may be elevated without bacterial infection by physiologic stress related to trauma, bazzi, chronic dialysis, metastatic cancer, surgery in the past seven days, malaria, some fungal infections, and some forms of vasculitis. The interpretation algorithm may not apply to patients with immunosuppression (equivalent of >10 mg of prednisone daily), HIV with CD4 cell count < 350 cells/mm3, active malignancy on systemic chemotherapy, solid organ transplant or hematopoietic stem cell transplantation, or hospital acquired pneumonia. Additionally, some clinical trials of procalcitonin have excluded patients with shock requiring vasopressor use, acute respiratory failure requiring mechanical ventilation, or those with known lung abscess/empyema. For further information please refer to:[email or web address] Lab Interpretation Abnormal (test code = 56199-5) [facility] WITH [id number] 10:57:21 Test Item Value Reference Range Interpretation Comments WBC (test code = 41.69 See_Comment H [Automated 6690-2) message] The sy stem which generated this result transmitted reference range : 4.20 - 10.70 10*3/?L. The reference range was not used to interpret this result as normal/abnormal . RBC (test code = 2.31 See_Comment L [Automated 789-8) message] The sy stem which generated this result transmitted reference range : 4.26 - 5.52 10*6/?L. The reference range was not used to interpret this result as normal/abnormal . HGB (test code = 6.6 g/dL 12.2-16.4 L 718-7) HCT (test code = 22.6 % 38.4-49.3 L 4544-3) MCV (test code = 97.8 fL 81.7-95.6 H 787-2) MCH (test code = 28.6 pg 26.1-32.7 785-6) MCHC (test code = 29.2 g/dL 31.2-35.0 L 786-4) RDW-SD (test code = 74.5 fL 38.5-51.6 H 09320-2) RDW-CV (test code = 22.3 % 12.1-15.4 H 788-0) PLT (test code = 46 See_Comment LL [Automated 777-3) message] The sy stem which generated this result transmitted reference range : 150 - 328 10*3/ ?L. The reference r kyra was not used to interpret this result as normal/abnormal . MPV (test code = Not Measure d 26515-0) IPF % (test code = 25.8 % 1.2-10.7 H Platelet count 3108253219) measured by fluorescence method. NRBC/100 WBC (test 0.6 See_Comment [Automat ed code = 0711197269) message] The system which generated this result transmitted reference range : 0.0 - 10.0 /100 WBCs. The refer ence range was not u sed to interpret th is result as normal/abnormal . NRBC x10^3 (test code 0.23 See_Comment [Auto mated = 9131933698) message] The s ystem which generated this result transmitted reference range : 10*3/?L. The reference range was not used to interpret this result as normal/abnormal . GRAN MAT (NEUT) % 88.5 % (test code = 770-8) IMM GRAN % (test code 3.00 % = 2764952907) LYMPH % (test code = 4.5 % 736-9) MONO % (test code = 3.7 % 5905-5) EOS % (test code = 0.0 % 713-8) BASO % (test code = 0.3 % 706-2) GRAN MAT x10^3(ANC) 36.91 10*3/uL 1.99-6.95 H (test code = 4967523555) IMM GRAN x10^3 (test 1.26 10*3/uL 0.00-0.06 H code = 9503698380) LYMPH x10^3 (test 1.87 10*3/uL 1.09-3.23 code = 731-0) MONO x10^3 (test code 1.53 10*3/uL 0.36-1.02 H = 742-7) EOS x10^3 (test code 0.06-0.53 L = 711-2) BASO x10^3 (test code 0.11 10*3/uL 0.01-0.09 H = 704-7) POLYCHROMASIA (test 2+ See_Comment [Automa che code = 50036-3) message] The system which generated this result transmitted reference range : 2+. The referen ce range was not u sed to interpret th is result as normal/abnormal . Lab Interpretation Abnormal (test code = 46491-7) [facility] WITH [id number] 10:57:21 Test Item Value Reference Range Interpretation Comments WBC (test code = 41.69 See_Comment H [Automated 4590-2) message] The sy stem which generated this result transmitted reference range : 4.20 - 10.70 10*3/?L. The reference range was not used to interpret this result as normal/abnormal . RBC (test code = 2.31 See_Comment L [Automated 789-8) message] The sy stem which generated this result transmitted reference range : 4.26 - 5.52 10*6/?L. The reference range was not used to interpret this result as normal/abnormal . HGB (test code = 6.6 g/dL 12.2-16.4 L 718-7) HCT (test code = 22.6 % 38.4-49.3 L 4544-3) MCV (test code = 97.8 fL 81.7-95.6 H 787-2) MCH (test code = 28.6 pg 26.1-32.7 785-6) MCHC (test code = 29.2 g/dL 31.2-35.0 L 786-4) RDW-SD (test code = 74.5 fL 38.5-51.6 H 52245-5) RDW-CV (test code = 22.3 % 12.1-15.4 H 788-0) PLT (test code = 46 See_Comment LL [Automated 777-3) message] The sy stem which generated this result transmitted reference range : 150 - 328 10*3/ ?L. The reference r kyra was not used to interpret this result as normal/abnormal . MPV (test code = Not Measure d 02359-7) IPF % (test code = 25.8 % 1.2-10.7 H Platelet count 0898366875) measured by fluorescence method. NRBC/100 WBC (test 0.6 See_Comment [Automat ed code = 3473869205) message] The system which generated this result transmitted reference range : 0.0 - 10.0 /100 WBCs. The refer ence range was not u sed to interpret th is result as normal/abnormal . NRBC x10^3 (test code 0.23 See_Comment [Auto mated = 7849532716) message] The s ystem which generated this result transmitted reference range : 10*3/?L. The reference range was not used to interpret this result as normal/abnormal . GRAN MAT (NEUT) % 88.5 % (test code = 770-8) IMM GRAN % (test code 3.00 % = 3779980089) LYMPH % (test code = 4.5 % 736-9) MONO % (test code = 3.7 % 5905-5) EOS % (test code = 0.0 % 713-8) BASO % (test code = 0.3 % 706-2) GRAN MAT x10^3(ANC) 36.91 10*3/uL 1.99-6.95 H (test code = 2841338102) IMM GRAN x10^3 (test 1.26 10*3/uL 0.00-0.06 H code = 9236205457) LYMPH x10^3 (test 1.87 10*3/uL 1.09-3.23 code = 731-0) MONO x10^3 (test code 1.53 10*3/uL 0.36-1.02 H = 742-7) EOS x10^3 (test code 0.06-0.53 L = 711-2) BASO x10^3 (test code 0.11 10*3/uL 0.01-0.09 H = 704-7) POLYCHROMASIA (test 2+ See_Comment [Automa che code = 51319-1) message] The system which generated this result transmitted reference range : 2+. The referen ce range was not u sed to interpret th is result as normal/abnormal . Lab Interpretation Abnormal (test code = 17603-6) [facility] (ALB,T.PRO,BILI T,BU/BC,ALT,AST,ALK PHOS)2023-03-04 10:33:26 Test Item Value Reference Range Interpretation Comments TOTAL BILI (test code = 0980170794) 2.7 mg/dL 0.1-1.1 H BILI UNCON (test code = 1826215099) 0.7 mg/dL 0.1-1.1 BILI CONJ (test code = 2521033342) 0.9 mg/dL 0.0-0.3 H T PROTEIN (test code = 9786334160) 6.2 g/dL 6.3-8.2 L ALBUMIN (test code = 7693464617) 3.0 g/dL 3.5-5.0 L ALK PHOS (test code = 7165505735) 103 U/L 34-122 ALTv (test code = 1742-6) 57 U/L 5-50 H AST(SGOT) (test code = 0829334157) 69 U/L 13-40 H Lab Interpretation (test code = Abnormal 32904-3) [facility]51459[facility] (ALB,T.PRO,BILI T,BU/BC,ALT,AST,ALK PHOS)2023-03-04 10:33:26 Test Item Value Reference Range Interpretation Comments TOTAL BILI (test code = 7861218375) 2.7 mg/dL 0.1-1.1 H BILI UNCON (test code = 1038217968) 0.7 mg/dL 0.1-1.1 BILI CONJ (test code = 7463967918) 0.9 mg/dL 0.0-0.3 H T PROTEIN (test code = 2771301018) 6.2 g/dL 6.3-8.2 L ALBUMIN (test code = 8901181124) 3.0 g/dL 3.5-5.0 L ALK PHOS (test code = 9769463115) 103 U/L 34-122 ALTv (test code = 1742-6) 57 U/L 5-50 H AST(SGOT) (test code = 1932140833) 69 U/L 13-40 H Lab Interpretation (test code = Abnormal 12509-3) [facility]:26 Test Item Value Reference Range Interpretation Comments PHOSPHORUS (test code = 2219418080) 6.8 mg/dL 2.5-5.0 H Lab Interpretation (test code = Abnormal 42788-9) [facility]29567[facility] (ALB,T.PRO,BILI T,BU/BC,ALT,AST,ALK PHOS)2023-03-04 10:33:26 Test Item Value Reference Range Interpretation Comments TOTAL BILI (test code = 5012590283) 2.7 mg/dL 0.1-1.1 H BILI UNCON (test code = 1219262360) 0.7 mg/dL 0.1-1.1 BILI CONJ (test code = 6491368634) 0.9 mg/dL 0.0-0.3 H T PROTEIN (test code = 0499467339) 6.2 g/dL 6.3-8.2 L ALBUMIN (test code = 6858319468) 3.0 g/dL 3.5-5.0 L ALK PHOS (test code = 9668840596) 103 U/L 34-122 ALTv (test code = 1742-6) 57 U/L 5-50 H AST(SGOT) (test code = 4734040093) 69 U/L 13-40 H Lab Interpretation (test code = Abnormal 53397-3) [facility] (NA, K, CL, CO2, GLUCOSE, BUN, CREATININE, CA)2023-03-04 10:33:26 Test Item Value Reference Range Interpretation Comments NA (test code = 141 mmol/L 135-145 7831912624) K (test code = 5.1 mmol/L 3.5-5.0 H 0133102553) CL (test code = 107 mmol/L 98-108 7204429492) CO2 TOTAL (test code = 16 mmol/L 23-31 L 0219226117) AGAP (test code = 18 2-16 H 0672734482) BUN (test code = 38 mg/dL 7-23 H 7407141503) GLUCOSE (test code = 221 mg/dL 70-110 H 4939770954) CREATININE (test code = 3.14 mg/dL 0.60-1.25 H 7322949051) CALCIUM (test code = 7.8 mg/dL 8.6-10.6 L 0408215043) eGFR (test code = 20.3 mL/min/1.73m2 1864383683) MIKAYLA (test code = MIKAYLA) Association of Glomerular Filtration Rate (GFR) and Staging of Kidney Disease* + --+ --+ ------+| GFR (mL/min/1.73 m2) ?| With Kidney Damage ?| ?Without Kidney Damage+ --------+ --------+ +| ?>90 ?| ?Stage one ?| ? Normal ?+ ---+ ---+ -------+| ?60-89 ?| ?Stage two ?| ? Decreased GFR ? + --+ --+ ------+| ?30-59 ?| ?Stage three ?| ? Stage three ? + --+ --+ ------+| ?15-29 ?| ?Stage four ? | ? Stage four ?+ ---+ ---+ -------+| ?<15 (or dialysis) ? ?| ?Stage five ? | ? Stage five ?+ ---+ ---+ -------+ *Each stage assumes the associated GFR level has been in effect for at least three months. ?Stages 1 to 5, with or without kidney disease, indicate chronic kidney disease. Notes: Determination of stages one and two (with eGFR >59mL/min/1.73 m2) requires estimation of kidney damage for at least three months as defined by structural or functional abnormalities of the kidney, manifested by either:Pathological abnormalities or Markers of kidney damage (including abnormalities in the composition of the blood or urine or abnormalities in imaging tests). Lab Interpretation Abnormal (test code = 04064-8) [facility]26 Test Item Value Reference Range Interpretation Comments MAGNESIUM (test code = 7742178965) 2.2 mg/dL 1.7-2.4 Lab Interpretation (test code = Normal 07545-0) [facility] 10:33:26 Test Item Value Reference Range Interpretation Comments PHOSPHORUS (test code = 3587576814) 6.8 mg/dL 2.5-5.0 H Lab Interpretation (test code = Abnormal 35412-5) [facility]48053[facility] (ALB,T.PRO,BILI T,BU/BC,ALT,AST,ALK PHOS)2023-03-04 10:33:26 Test Item Value Reference Range Interpretation Comments TOTAL BILI (test code = 2106183289) 2.7 mg/dL 0.1-1.1 H BILI UNCON (test code = 7702341741) 0.7 mg/dL 0.1-1.1 BILI CONJ (test code = 4016403627) 0.9 mg/dL 0.0-0.3 H T PROTEIN (test code = 0560569476) 6.2 g/dL 6.3-8.2 L ALBUMIN (test code = 8723503308) 3.0 g/dL 3.5-5.0 L ALK PHOS (test code = 7360604116) 103 U/L 34-122 ALTv (test code = 1742-6) 57 U/L 5-50 H AST(SGOT) (test code = 8541621211) 69 U/L 13-40 H Lab Interpretation (test code = Abnormal 93058-8) [facility] (NA, K, CL, CO2, GLUCOSE, BUN, CREATININE, CA)2023-03-04 10:33:26 Test Item Value Reference Range Interpretation Comments NA (test code = 141 mmol/L 135-145 2506361630) K (test code = 5.1 mmol/L 3.5-5.0 H 8143563973) CL (test code = 107 mmol/L 98-108 0171324408) CO2 TOTAL (test code = 16 mmol/L 23-31 L 7269285234) AGAP (test code = 18 2-16 H 4816034271) BUN (test code = 38 mg/dL 7-23 H 3305005148) GLUCOSE (test code = 221 mg/dL 70-110 H 8943613457) CREATININE (test code = 3.14 mg/dL 0.60-1.25 H 0272479493) CALCIUM (test code = 7.8 mg/dL 8.6-10.6 L 1004499583) eGFR (test code = 20.3 mL/min/1.73m2 7932772690) MIKAYLA (test code = MIKAYLA) Association of Glomerular Filtration Rate (GFR) and Staging of Kidney Disease* + --+ --+ ------+| GFR (mL/min/1.73 m2) ?| With Kidney Damage ?| ?Without Kidney Damage+ --------+ --------+ +| ?>90 ?| ?Stage one ?| ? Normal ?+ ---+ ---+ -------+| ?60-89 ?| ?Stage two ?| ? Decreased GFR ? + --+ --+ ------+| ?30-59 ?| ?Stage three ?| ? Stage three ? + --+ --+ ------+| ?15-29 ?| ?Stage four ? | ? Stage four ?+ ---+ ---+ -------+| ?<15 (or dialysis) ? ?| ?Stage five ? | ? Stage five ?+ ---+ ---+ -------+ *Each stage assumes the associated GFR level has been in effect for at least three months. ?Stages 1 to 5, with or without kidney disease, indicate chronic kidney disease. Notes: Determination of stages one and two (with eGFR >59mL/min/1.73 m2) requires estimation of kidney damage for at least three months as defined by structural or functional abnormalities of the kidney, manifested by either:Pathological abnormalities or Markers of kidney damage (including abnormalities in the composition of the blood or urine or abnormalities in imaging tests). Lab Interpretation Abnormal (test code = 68747-0) [facility]26 Test Item Value Reference Range Interpretation Comments MAGNESIUM (test code = 1064795267) 2.2 mg/dL 1.7-2.4 Lab Interpretation (test code = Normal 74263-2) [facility] 10:14:43 Test Item Value Reference Range Interpretation Comments APTT Patient (test code 88 See_Comment H [Au tomated message] = 0083-2) The system [employer] generated this result transmitted ref erence range: 26 - 36 Seconds. The reference range was not used to int erpret this result as normal/abnormal . Lab Interpretation (test Abnormal code = 82127-9) [facility] 10:14:43 Test Item Value Reference Range Interpretation Comments APTT Patient (test code 88 See_Comment H [Au tomated message] = 3173-2) The system whic h generated this result transmitted ref erence range: 26 - 36 Seconds. The reference range was not used to int erpret this result as normal/abnormal . Lab Interpretation (test Abnormal code = 91882-6) [facility] + Lactic [id number] 09:56:45 Test Item Value Reference Range Interpretation Comments PH (test code = 2) 7.34 7.35-7.45 L PCO2 (test code = 33 See_Comment L [Automate d 9017309476) message] The sy stem which generated this result transmitted reference range : 35 - 45 mmHg. The reference range was not used to interpret this result as normal/abnormal . PO2 (test code = 164 See_Comment H [Automated 1438744273) message] The sy stem which generated this result transmitted reference range : 80 - 100 mmHg. The reference range was not used to interpret this result as normal/abnormal . HCO3 (test code = 18 See_Comment L [Automate d 9725929770) message] The sy stem which generated this result transmitted reference range : 22 - 26 mEq/L. The reference range was not used to interpret this result as normal/abnormal . BE (test code = -7.4 See_Comment L [Automated 8666187855) message] The sy stem which generated this result transmitted reference range : -3.0 - 3.0 mEq/ L. The reference r kyra was not used to interpret this result as normal/abnormal . THB (test code = 8.0 g/dL 13.5-18.0 LL 0587924552) %O2HB (test code = 97.9 % 94.0-99.0 5605700265) %COHB ART (test code = 1.4 % 0.0-1.5 7019740418) %METHB ART (test code = 0.2 % 0.4-1.5 L 2302849934) VOL%O2 ART (test code = 11.4 % 15.0-23.0 L 9400074204) NA (test code = 140 mmol/L 135-145 5988787697) K+ (test code = 5.0 mmol/L 3.5-5.0 6711056621) AC CA IONZ (test code = 4.40 mg/dL 4.50-5.30 L 5413849155) GLUCOSE (test code = 227 mg/dL 70-110 H 2443021308) LACTIC ACID (test code 2.31 mmol/L 0.50-2.20 H = 0285580322) Lab Interpretation Abnormal (test code = 86413-4) [facility] Lactic [id number] 09:56:45 Test Item Value Reference Range Interpretation Comments PH (test code = 2) 7.34 7.35-7.45 L PCO2 (test code = 33 See_Comment L [Automate d 8737332222) message] The sy stem which generated this result transmitted reference range : 35 - 45 mmHg. The reference range was not used to interpret this result as normal/abnormal . PO2 (test code = 164 See_Comment H [Automated 0806490785) message] The sy stem which generated this result transmitted reference range : 80 - 100 mmHg. The reference range was not used to interpret this result as normal/abnormal . HCO3 (test code = 18 See_Comment L [Automate d 8310748525) message] The sy stem which generated this result transmitted reference range : 22 - 26 mEq/L. The reference range was not used to interpret this result as normal/abnormal . BE (test code = -7.4 See_Comment L [Automated 3285353324) message] The sy stem which generated this result transmitted reference range : -3.0 - 3.0 mEq/ L. The reference r kyra was not used to interpret this result as normal/abnormal . THB (test code = 8.0 g/dL 13.5-18.0 LL 4236096667) %O2HB (test code = 97.9 % 94.0-99.0 8217271050) %COHB ART (test code = 1.4 % 0.0-1.5 9880589886) %METHB ART (test code = 0.2 % 0.4-1.5 L 9245988927) VOL%O2 ART (test code = 11.4 % 15.0-23.0 L 2801385342) NA (test code = 140 mmol/L 135-145 3410555759) K+ (test code = 5.0 mmol/L 3.5-5.0 5945555821) AC CA IONZ (test code = 4.40 mg/dL 4.50-5.30 L 6712396101) GLUCOSE (test code = 227 mg/dL 70-110 H 9283950439) LACTIC ACID (test code 2.31 mmol/L 0.50-2.20 H = 9664465641) Lab Interpretation Abnormal (test code = 68288-5) [facility]09 Test Item Value Reference Range Interpretation Comments APTT Patient (test code 86 See_Comment H [Au tomated message] = 3173-2) The system [employer] generated this result transmitted ref erence range: 26 - 36 Seconds. The reference range was not used to int erpret this result as normal/abnormal . Lab Interpretation (test Abnormal code = 11067-2) [facility] 06:55:09 Test Item Value Reference Range Interpretation Comments APTT Patient (test code 86 See_Comment H [Au tomated message] = 3173-2) The system [employer] generated this result transmitted ref erence range: 26 - 36 Seconds. The reference range was not used to int erpret this result as normal/abnormal . Lab Interpretation (test Abnormal code = 15716-8) [facility] Lactic [id number] 04:32:59 Test Item Value Reference Range Interpretation Comments PH (test code = 2) 7.39 7.35-7.45 PCO2 (test code = 34 See_Comment L [Automate d 5435523701) message] The sy stem which generated this result transmitted reference range : 35 - 45 mmHg. The reference range was not used to interpret this result as normal/abnormal . PO2 (test code = 178 See_Comment H [Automated 5493898857) message] The sy stem which generated this result transmitted reference range : 80 - 100 mmHg. The reference range was not used to interpret this result as normal/abnormal . HCO3 (test code = 20 See_Comment L [Automate d 1095567407) message] The sy stem which generated this result transmitted reference range : 22 - 26 mEq/L. The reference range was not used to interpret this result as normal/abnormal . BE (test code = -4.4 See_Comment L [Automated 2666097259) message] The sy stem which generated this result transmitted reference range : -3.0 - 3.0 mEq/ L. The reference r kyra was not used to interpret this result as normal/abnormal . THB (test code = 7.7 g/dL 13.5-18.0 LL 7621324309) %O2HB (test code = 98.2 % 94.0-99.0 1343837456) %COHB ART (test code = 1.1 % 0.0-1.5 0899313057) %METHB ART (test code = 0.3 % 0.4-1.5 L 8622026394) VOL%O2 ART (test code = 11.1 % 15.0-23.0 L 6968413329) NA (test code = 140 mmol/L 135-145 8926774495) K+ (test code = 4.9 mmol/L 3.5-5.0 1660387474) AC CA IONZ (test code = 4.40 mg/dL 4.50-5.30 L 8701720148) GLUCOSE (test code = 176 mg/dL 70-110 H 7568895361) LACTIC ACID (test code 2.50 mmol/L 0.50-2.20 H = 4339608486) Lab Interpretation Abnormal (test code = 71158-3) [facility] Lactic [id number] 04:32:59 Test Item Value Reference Range Interpretation Comments PH (test code = 2) 7.39 7.35-7.45 PCO2 (test code = 34 See_Comment L [Automate d 4002113172) message] The sy stem which generated this result transmitted reference range : 35 - 45 mmHg. The reference range was not used to interpret this result as normal/abnormal . PO2 (test code = 178 See_Comment H [Automated 7965077600) message] The sy stem which generated this result transmitted reference range : 80 - 100 mmHg. The reference range was not used to interpret this result as normal/abnormal . HCO3 (test code = 20 See_Comment L [Automate d 5183603545) message] The sy stem which generated this result transmitted reference range : 22 - 26 mEq/L. The reference range was not used to interpret this result as normal/abnormal . BE (test code = -4.4 See_Comment L [Automated 9280666106) message] The sy stem which generated this result transmitted reference range : -3.0 - 3.0 mEq/ L. The reference r kyra was not used to interpret this result as normal/abnormal . THB (test code = 7.7 g/dL 13.5-18.0 LL 3658481254) %O2HB (test code = 98.2 % 94.0-99.0 9631258695) %COHB ART (test code = 1.1 % 0.0-1.5 7194190948) %METHB ART (test code = 0.3 % 0.4-1.5 L 4557452868) VOL%O2 ART (test code = 11.1 % 15.0-23.0 L 6061826643) NA (test code = 140 mmol/L 135-145 8540943987) K+ (test code = 4.9 mmol/L 3.5-5.0 1515019279) AC CA IONZ (test code = 4.40 mg/dL 4.50-5.30 L 3028129062) GLUCOSE (test code = 176 mg/dL 70-110 H 1537604446) LACTIC ACID (test code 2.50 mmol/L 0.50-2.20 H = 9349673539) Lab Interpretation Abnormal (test code = 38745-3) [facility] 02:21:57 Test Item Value Reference Range Interpretation Comments APTT Patient (test code 102 See_Comment [Au tomated message] = 3173-2) The system [employer] generated this result transmitted ref erence range: 26 - 36 Seconds. The reference range was not used to int erpret this result as normal/abnormal . Lab Interpretation (test Abnormal code = 63410-6) [facility] 02:21:57 Test Item Value Reference Range Interpretation Comments APTT Patient (test code 102 See_Comment HH [Au tomated message] = 3173-2) The system [employer] generated this result transmitted ref erence range: 26 - 36 Seconds. The reference range was not used to int erpret this result as normal/abnormal . Lab Interpretation (test Abnormal code = 78111-0) [facility] [id number] 01:53:13 Test Item Value Reference Range Interpretation Comments PH (test code = 2) 7.42 7.35-7.45 PCO2 (test code = 35 See_Comment [Automate d [id number]) message] The sy stem which generated this result transmitted reference range : 35 - 45 mmHg. The reference range was not used to interpret this result as normal/abnormal . PO2 (test code = 98 See_Comment [Automated [id number]) message] The sy stem which generated this result transmitted reference range : 80 - 100 mmHg. The reference range was not used to interpret this result as normal/abnormal . HCO3 (test code = 21 See_Comment L [Automate d [id number]) message] The sy stem which generated this result transmitted reference range : 22 - 26 mEq/L. The reference range was not used to interpret this result as normal/abnormal . BE (test code = -2.3 See_Comment [Automated [id number]) message] The sy stem which generated this result transmitted reference range : -3.0 - 3.0 mEq/ L. The reference r kyra was not used to interpret this result as normal/abnormal . THB (test code = 7.6 g/dL 13.5-18.0 LL 2467425737) %O2HB (test code = 95.6 % 94.0-99.0 5225653140) %COHB ART (test code = 1.3 % 0.0-1.5 8091537742) %METHB ART (test code = 0.3 % 0.4-1.5 L 9131655425) VOL%O2 ART (test code = 10.4 % 15.0-23.0 L 0532779319) NA (test code = 141 mmol/L 135-145 4101322679) K+ (test code = 4.7 mmol/L 3.5-5.0 6091389760) AC CA IONZ (test code = 4.30 mg/dL 4.50-5.30 L 1150576757) GLUCOSE (test code = 145 mg/dL 70-110 H 2400609463) LACTIC ACID (test code 2.84 mmol/L 0.50-2.20 H = 6586962183) Lab Interpretation Abnormal (test code = 91470-2) [facility] [id number] 01:53:13 Test Item Value Reference Range Interpretation Comments PH (test code = 2) 7.42 7.35-7.45 PCO2 (test code = 35 See_Comment [Automate d [id number]) message] The sy stem which generated this result transmitted reference range : 35 - 45 mmHg. The reference range was not used to interpret this result as normal/abnormal . PO2 (test code = 98 See_Comment [Automated 7257049923) message] The sy stem which generated this result transmitted reference range : 80 - 100 mmHg. The reference range was not used to interpret this result as normal/abnormal . HCO3 (test code = 21 See_Comment L [Automate d 0084634434) message] The sy stem which generated this result transmitted reference range : 22 - 26 mEq/L. The reference range was not used to interpret this result as normal/abnormal . BE (test code = -2.3 See_Comment [Automated 6563337515) message] The sy stem which generated this result transmitted reference range : -3.0 - 3.0 mEq/ L. The reference r kyra was not used to interpret this result as normal/abnormal . THB (test code = 7.6 g/dL 13.5-18.0 LL 5419545155) %O2HB (test code = 95.6 % 94.0-99.0 6892499980) %COHB ART (test code = 1.3 % 0.0-1.5 7862503865) %METHB ART (test code = 0.3 % 0.4-1.5 L 0651349710) VOL%O2 ART (test code = 10.4 % 15.0-23.0 L 2611827989) NA (test code = 141 mmol/L 135-145 5544123428) K+ (test code = 4.7 mmol/L 3.5-5.0 1555216080) AC CA IONZ (test code = 4.30 mg/dL 4.50-5.30 L 1297090540) GLUCOSE (test code = 145 mg/dL 70-110 H 0158292325) LACTIC ACID (test code 2.84 mmol/L 0.50-2.20 H = 7413105989) Lab Interpretation Abnormal (test code = 71329-0) [facility] Lactic [id number] 01:04:03 Test Item Value Reference Range Interpretation Comments PH (test code = 2) 7.36 7.35-7.45 PCO2 (test code = 34 See_Comment L [Automate d 1365228609) message] The sy stem which generated this result transmitted reference range : 35 - 45 mmHg. The reference range was not used to interpret this result as normal/abnormal . PO2 (test code = 227 See_Comment H [Automated 1251710600) message] The sy stem which generated this result transmitted reference range : 80 - 100 mmHg. The reference range was not used to interpret this result as normal/abnormal . HCO3 (test code = 18 See_Comment L [Automate d 8822489938) message] The sy stem which generated this result transmitted reference range : 22 - 26 mEq/L. The reference range was not used to interpret this result as normal/abnormal . BE (test code = -5.9 See_Comment L [Automated 9788691418) message] The sy stem which generated this result transmitted reference range : -3.0 - 3.0 mEq/ L. The reference r kyra was not used to interpret this result as normal/abnormal . THB (test code = 7.8 g/dL 13.5-18.0 LL 1705598529) %O2HB (test code = 98.5 % 94.0-99.0 3600906728) %COHB ART (test code = 1.0 % 0.0-1.5 9769822096) %METHB ART (test code = 0.4 % 0.4-1.5 2939377970) VOL%O2 ART (test code = 11.4 % 15.0-23.0 L 2363167731) NA (test code = 138 mmol/L 135-145 9315582594) K+ (test code = 4.6 mmol/L 3.5-5.0 9919680222) AC CA IONZ (test code = 4.50 mg/dL 4.50-5.30 9133330431) GLUCOSE (test code = 123 mg/dL 70-110 H 3054586393) LACTIC ACID (test code 3.40 mmol/L 0.50-2.20 H = 2550466247) Lab Interpretation Abnormal (test code = 30604-2) [facility] Lactic [id number] 01:04:03 Test Item Value Reference Range Interpretation Comments PH (test code = 2) 7.36 7.35-7.45 PCO2 (test code = 34 See_Comment L [Automate d 3802065856) message] The sy stem which generated this result transmitted reference range : 35 - 45 mmHg. The reference range was not used to interpret this result as normal/abnormal . PO2 (test code = 227 See_Comment H [Automated 5968944167) message] The sy stem which generated this result transmitted reference range : 80 - 100 mmHg. The reference range was not used to interpret this result as normal/abnormal . HCO3 (test code = 18 See_Comment L [Automate d 3241318840) message] The sy stem which generated this result transmitted reference range : 22 - 26 mEq/L. The reference range was not used to interpret this result as normal/abnormal . BE (test code = -5.9 See_Comment L [Automated 1093786999) message] The sy stem which generated this result transmitted reference range : -3.0 - 3.0 mEq/ L. The reference r kyra was not used to interpret this result as normal/abnormal . THB (test code = 7.8 g/dL 13.5-18.0 LL 3491791496) %O2HB (test code = 98.5 % 94.0-99.0 5486269686) %COHB ART (test code = 1.0 % 0.0-1.5 9556532062) %METHB ART (test code = 0.4 % 0.4-1.5 3577130855) VOL%O2 ART (test code = 11.4 % 15.0-23.0 L 9019119033) NA (test code = 138 mmol/L 135-145 8534221813) K+ (test code = 4.6 mmol/L 3.5-5.0 9675064876) AC CA IONZ (test code = 4.50 mg/dL 4.50-5.30 8033789562) GLUCOSE (test code = 123 mg/dL 70-110 H 7119562965) LACTIC ACID (test code 3.40 mmol/L 0.50-2.20 H = 2890739086) Lab Interpretation Abnormal (test code = 11574-3) [facility]actic [id number] 22:48:52 Test Item Value Reference Range Interpretation Comments PH (test code = 2) 7.32 7.35-7.45 L PCO2 (test code = 31 See_Comment L [Automate d 9834823179) message] The sy stem which generated this result transmitted reference range : 35 - 45 mmHg. The reference range was not used to interpret this result as normal/abnormal . PO2 (test code = 231 See_Comment H [Automated 9474089249) message] The sy stem which generated this result transmitted reference range : 80 - 100 mmHg. The reference range was not used to interpret this result as normal/abnormal . HCO3 (test code = 15 See_Comment L [Automate d 5354877364) message] The sy stem which generated this result transmitted reference range : 22 - 26 mEq/L. The reference range was not used to interpret this result as normal/abnormal . BE (test code = -9.3 See_Comment L [Automated 0771555573) message] The sy stem which generated this result transmitted reference range : -3.0 - 3.0 mEq/ L. The reference r kyra was not used to interpret this result as normal/abnormal . THB (test code = 8.2 g/dL 13.5-18.0 LL 0538644524) %O2HB (test code = 98.4 % 94.0-99.0 0282347063) %COHB ART (test code = 1.1 % 0.0-1.5 5403811701) %METHB ART (test code = 0.4 % 0.4-1.5 9329290269) VOL%O2 ART (test code = 11.9 % 15.0-23.0 L 2563647135) NA (test code = 138 mmol/L 135-145 8743529691) K+ (test code = 4.8 mmol/L 3.5-5.0 0766280179) AC CA IONZ (test code = 4.20 mg/dL 4.50-5.30 L 2541971347) GLUCOSE (test code = 96 mg/dL 70-110 5310764396) LACTIC ACID (test code 6.44 mmol/L 0.50-2.20 H = 8940586973) Lab Interpretation Abnormal (test code = 39409-1) [facility] Lactic [id number] 22:48:52 Test Item Value Reference Range Interpretation Comments PH (test code = 2) 7.32 7.35-7.45 L PCO2 (test code = 31 See_Comment L [Automate d 0957105192) message] The sy stem which generated this result transmitted reference range : 35 - 45 mmHg. The reference range was not used to interpret this result as normal/abnormal . PO2 (test code = 231 See_Comment H [Automated 9714251624) message] The sy stem which generated this result transmitted reference range : 80 - 100 mmHg. The reference range was not used to interpret this result as normal/abnormal . HCO3 (test code = 15 See_Comment L [Automate d 6037016716) message] The sy stem which generated this result transmitted reference range : 22 - 26 mEq/L. The reference range was not used to interpret this result as normal/abnormal . BE (test code = -9.3 See_Comment L [Automated 1644671872) message] The sy stem which generated this result transmitted reference range : -3.0 - 3.0 mEq/ L. The reference r kyra was not used to interpret this result as normal/abnormal . THB (test code = 8.2 g/dL 13.5-18.0 LL 8595412199) %O2HB (test code = 98.4 % 94.0-99.0 4203196866) %COHB ART (test code = 1.1 % 0.0-1.5 4345024044) %METHB ART (test code = 0.4 % 0.4-1.5 9029653851) VOL%O2 ART (test code = 11.9 % 15.0-23.0 L 8838713920) NA (test code = 138 mmol/L 135-145 9720722039) K+ (test code = 4.8 mmol/L 3.5-5.0 0441035851) AC CA IONZ (test code = 4.20 mg/dL 4.50-5.30 L 1469661045) GLUCOSE (test code = 96 mg/dL 70-110 5604427731) LACTIC ACID (test code 6.44 mmol/L 0.50-2.20 H = 7032949677) Lab Interpretation Abnormal (test code = 88909-7) [facility] Lactic [id number] 21:38:33 Test Item Value Reference Range Interpretation Comments PH (test code = 2) 7.35 7.35-7.45 PCO2 (test code = 27 See_Comment L [Automate d 1982919956) message] The sy stem which generated this result transmitted reference range : 35 - 45 mmHg. The reference range was not used to interpret this result as normal/abnormal . PO2 (test code = 352 See_Comment H [Automated 5932042682) message] The sy stem which generated this result transmitted reference range : 80 - 100 mmHg. The reference range was not used to interpret this result as normal/abnormal . HCO3 (test code = 14 See_Comment L [Automate d 7697026031) message] The sy stem which generated this result transmitted reference range : 22 - 26 mEq/L. The reference range was not used to interpret this result as normal/abnormal . BE (test code = -10.1 See_Comment L [Automated 4250006874) message] The sy stem which generated this result transmitted reference range : -3.0 - 3.0 mEq/ L. The reference r kyra was not used to interpret this result as normal/abnormal . THB (test code = 8.2 g/dL 13.5-18.0 LL 0321995938) %O2HB (test code = 98.1 % 94.0-99.0 2821316958) %COHB ART (test code = 1.1 % 0.0-1.5 6863914565) %METHB ART (test code = 0.5 % 0.4-1.5 2208748063) VOL%O2 ART (test code = 12.3 % 15.0-23.0 L 1641377117) NA (test code = 138 mmol/L 135-145 6571588116) K+ (test code = 4.8 mmol/L 3.5-5.0 7157271095) AC CA IONZ (test code = 4.30 mg/dL 4.50-5.30 L 9582738834) GLUCOSE (test code = 103 mg/dL 70-110 8018174760) LACTIC ACID (test code 8.77 mmol/L 0.50-2.20 H = 7779222057) Lab Interpretation Abnormal (test code = 49256-6) [facility] Lactic [id number] 21:38:33 Test Item Value Reference Range Interpretation Comments PH (test code = 2) 7.35 7.35-7.45 PCO2 (test code = 27 See_Comment L [Automate d 8465228702) message] The sy stem which generated this result transmitted reference range : 35 - 45 mmHg. The reference range was not used to interpret this result as normal/abnormal . PO2 (test code = 352 See_Comment H [Automated 2171773585) message] The sy stem which generated this result transmitted reference range : 80 - 100 mmHg. The reference range was not used to interpret this result as normal/abnormal . HCO3 (test code = 14 See_Comment L [Automate d 9486556866) message] The sy stem which generated this result transmitted reference range : 22 - 26 mEq/L. The reference range was not used to interpret this result as normal/abnormal . BE (test code = -10.1 See_Comment L [Automated 1504536097) message] The sy stem which generated this result transmitted reference range : -3.0 - 3.0 mEq/ L. The reference r kyra was not used to interpret this result as normal/abnormal . THB (test code = 8.2 g/dL 13.5-18.0 LL 8576772601) %O2HB (test code = 98.1 % 94.0-99.0 8484091060) %COHB ART (test code = 1.1 % 0.0-1.5 7345168944) %METHB ART (test code = 0.5 % 0.4-1.5 9085639116) VOL%O2 ART (test code = 12.3 % 15.0-23.0 L 8271224078) NA (test code = 138 mmol/L 135-145 2337953450) K+ (test code = 4.8 mmol/L 3.5-5.0 9311485847) AC CA IONZ (test code = 4.30 mg/dL 4.50-5.30 L 1455342439) GLUCOSE (test code = 103 mg/dL 70-110 2728972431) LACTIC ACID (test code 8.77 mmol/L 0.50-2.20 H = 2613774209) Lab Interpretation Abnormal (test code = 43936-8) [place] 55509023-07-02 21:09:04 Test Item Value Reference Range Interpretation Comments APTT Patient (test code 84 See_Comment H [Au tomated message] = 3173-2) The system [employer] generated this result transmitted ref erence range: 26 - 36 Seconds. The reference range was not used to int erpret this result as normal/abnormal . Lab Interpretation (test Abnormal code = 30939-3) [place] 55509023-07-02 21:09:04 Test Item Value Reference Range Interpretation Comments APTT Patient (test code 84 See_Comment H [Au tomated message] = 3173-2) The system [employer] generated this result transmitted ref erence range: 26 - 36 Seconds. The reference range was not used to int erpret this result as normal/abnormal . Lab Interpretation (test Abnormal code = 39646-1) [facility] GLUCOSE (AUTOMATED)2023-03-03 20:42:12 Test Item Value Reference Range Interpretation Comments POCT GLU (test code = 9540223219) 117 mg/dL 70-110 H Lab Interpretation (test code = Abnormal 61983-8) [facility] GLUCOSE (AUTOMATED)2023-03-03 20:42:12 Test Item Value Reference Range Interpretation Comments POCT GLU (test code = 7936038960) 117 mg/dL 70-110 H Lab Interpretation (test code = Abnormal 67233-1) [facility] (for use with Heparin Infusion)2023-03-03 16:44:54 Test Item Value Reference Range Interpretation Comments APTT Patient (test code 87 See_Comment H [Au tomated message] = 3173-2) The system [employer] generated this result transmitted ref erence range: 26 - 36 Seconds. The reference range was not used to int erpret this result as normal/abnormal . Lab Interpretation (test Abnormal code = 10021-7) [facility] 16:44:54 Test Item Value Reference Range Interpretation Comments APTT Patient (test code 87 See_Comment H [Au tomated message] = 8133-2) The system [employer] generated this result transmitted ref erence range: 26 - 36 Seconds. The reference range was not used to int erpret this result as normal/abnormal . Lab Interpretation (test Abnormal code = 91231-0) [facility] GLUCOSE (AUTOMATED)2023-03-03 13:47:06 Test Item Value Reference Range Interpretation Comments POCT GLU (test code = 4412348848) 123 mg/dL 70-110 H Lab Interpretation (test code = Abnormal 37118-1) [facility] GLUCOSE (AUTOMATED)2023-03-03 13:47:06 Test Item Value Reference Range Interpretation Comments POCT GLU (test code = 6026088250) 123 mg/dL 70-110 H Lab Interpretation (test code = Abnormal 72337-9) [facility] GLUCOSE (AUTOMATED)2023-03-03 08:32:42 Test Item Value Reference Range Interpretation Comments POCT GLU (test code = 8035688690) 122 mg/dL 70-110 H Lab Interpretation (test code = Abnormal 23005-1) [facility] GLUCOSE (AUTOMATED)2023-03-03 08:32:42 Test Item Value Reference Range Interpretation Comments POCT GLU (test code = 2153427361) 122 mg/dL 70-110 H Lab Interpretation (test code = Abnormal 73332-9) [facility] GLUCOSE (AUTOMATED)2023-03-03 05:04:39 Test Item Value Reference Range Interpretation Comments POCT GLU (test code = 4590087929) 131 mg/dL 70-110 H Lab Interpretation (test code = Abnormal 29185-3) [facility] GLUCOSE (AUTOMATED)2023-03-03 05:04:39 Test Item Value Reference Range Interpretation Comments POCT GLU (test code = 1827162570) 131 mg/dL 70-110 H Lab Interpretation (test code = Abnormal 17292-8) [facility] GLUCOSE (AUTOMATED)2023-03-03 02:35:55 Test Item Value Reference Range Interpretation Comments POCT GLU (test code = 0268174410) 133 mg/dL 70-110 H Lab Interpretation (test code = Abnormal 33980-0) [facility] GLUCOSE (AUTOMATED)2023-03-03 02:35:55 Test Item Value Reference Range Interpretation Comments POCT GLU (test code = 7920489608) 133 mg/dL 70-110 H Lab Interpretation (test code = Abnormal 72711-8) [place] 55509023-07-01 22:58:56 Test Item Value Reference Range Interpretation Comments APTT Patient (test code 91 See_Comment H [Au tomated message] = 3173-2) The system [employer] generated this result transmitted ref erence range: 26 - 36 Seconds. The reference range was not used to int erpret this result as normal/abnormal . Lab Interpretation (test Abnormal code = 36779-9) [place] 55509023-07-01 22:58:56 Test Item Value Reference Range Interpretation Comments APTT Patient (test code 91 See_Comment H [Au tomated message] = 3173-2) The system [employer] generated this result transmitted ref erence range: 26 - 36 Seconds. The reference range was not used to int erpret this result as normal/abnormal . Lab Interpretation (test Abnormal code = 98405-3) [facility] GLUCOSE (AUTOMATED)2023-03-02 21:09:11 Test Item Value Reference Range Interpretation Comments POCT GLU (test code = 1579004834) 133 mg/dL 70-110 H Lab Interpretation (test code = Abnormal 37971-3) [facility] GLUCOSE (AUTOMATED)2023-03-02 21:09:11 Test Item Value Reference Range Interpretation Comments POCT GLU (test code = 0505353660) 133 mg/dL 70-110 H Lab Interpretation (test code = Abnormal 90894-2) [facility] [id number] 18:14:36 Test Item Value Reference Range Interpretation Comments WBC (test code = 25.80 See_Comment H [Automated message] 6690-2) The system [employer] generated this result transmitted ref erence range: 4.20 - 1 0.70 10*3/?L. The reference range was not used to int erpret this result as normal/abnormal . RBC (test code = 789-8) 2.32 See_Comment L [Au tomated message] The system [employer] generated this result transmitted ref erence range: 4.26 - 5 .52 10*6/?L. The reference range was not used to int erpret this result as normal/abnormal . HGB (test code = 718-7) 6.8 g/dL 12.2-16.4 L HCT (test code = 22.3 % 38.4-49.3 L 4544-3) MCH (test code = 785-6) 29.3 pg 26.1-32.7 MCV (test code = 787-2) 96.1 fL 81.7-95.6 H MCHC (test code = 30.5 g/dL 31.2-35.0 L 786-4) PLT (test code = 777-3) 25 See_Comment LL [Au tomated message] The system [employer] generated this result transmitted ref erence range: 150 - 32 8 10*3/?L. The reference range was not used to int erpret this result as normal/abnormal . MPV (test code = Not Measure d 31409-8) RDW-CV (test code = 21.4 % 12.1-15.4 H 788-0) RDW-SD (test code = 68.2 fL 38.5-51.6 H 80263-6) NRBC x10^3 (test code = 0.13 See_Comment [Au tomated message] 9750140225) The system [employer] generated this result transmitted ref erence range: 10*3/?L. The reference range was not used to int erpret this result as normal/abnormal . NRBC/100 WBC (test code 0.5 See_Comment [Au tomated message] = 9942092956) The system [employer] generated this result transmitted ref erence range: 0.0 - 10 .0 /100 WBCs. The reference range was not used to int erpret this result as normal/abnormal . IPF % (test code = 32.2 % 1.2-10.7 H Platelet count 7089954680) measured by fluorescence me thod. Lab Interpretation Abnormal (test code = 78175-8) [facility] [id number] 18:14:36 Test Item Value Reference Range Interpretation Comments WBC (test code = 25.80 See_Comment H [Automated message] 6690-2) The system [employer] generated this result transmitted ref erence range: 4.20 - 1 0.70 10*3/?L. The reference range was not used to int erpret this result as normal/abnormal . RBC (test code = 789-8) 2.32 See_Comment L [Au tomated message] The system [employer] generated this result transmitted ref erence range: 4.26 - 5 .52 10*6/?L. The reference range was not used to int erpret this result as normal/abnormal . HGB (test code = 718-7) 6.8 g/dL 12.2-16.4 L HCT (test code = 22.3 % 38.4-49.3 L 4544-3) MCH (test code = 785-6) 29.3 pg 26.1-32.7 MCV (test code = 787-2) 96.1 fL 81.7-95.6 H MCHC (test code = 30.5 g/dL 31.2-35.0 L 786-4) PLT (test code = 777-3) 25 See_Comment LL [Au tomated message] The system [employer] generated this result transmitted ref erence range: 150 - 32 8 10*3/?L. The reference range was not used to int erpret this result as normal/abnormal . MPV (test code = Not Measure d 97069-9) RDW-CV (test code = 21.4 % 12.1-15.4 H 788-0) RDW-SD (test code = 68.2 fL 38.5-51.6 H 28622-5) NRBC x10^3 (test code = 0.13 See_Comment [Au tomated message] 5636751920) The system [employer] generated this result transmitted ref erence range: 10*3/?L. The reference range was not used to int erpret this result as normal/abnormal . NRBC/100 WBC (test code 0.5 See_Comment [Au tomated message] = 1305546434) The system [facility] generated this result transmitted ref erence range: 0.0 - 10 .0 /100 WBCs. The reference range was not used to int erpret this result as normal/abnormal . IPF % (test code = 32.2 % 1.2-10.7 H Platelet count 8831105900) measured by fluorescence me thod. Lab Interpretation Abnormal (test code = 88676-4) [facility] GLUCOSE (AUTOMATED)2023-03-02 17:21:04 Test Item Value Reference Range Interpretation Comments POCT GLU (test code = 2092810283) 135 mg/dL 70-110 H Lab Interpretation (test code = Abnormal 72114-0) [facility] GLUCOSE (AUTOMATED)2023-03-02 17:21:04 Test Item Value Reference Range Interpretation Comments POCT GLU (test code = 1389563251) 135 mg/dL 70-110 H Lab Interpretation (test code = Abnormal 37875-1) [facility] [id number] 13:59:24 Test Item Value Reference Range Interpretation Comments PROTIME PATIENT (test 19.7 See_Comment H [Auto mated message] code = 5964-2) The system [employer] generated this result transmitted ref erence range: 10.1 - 1 2.6 Seconds. The reference range was not used to int erpret this result as normal/abnormal . INR (test code = 6301-6) 1.7 Nor mal INR <1.1; Warfarin Therap eutic range 2.0 to 3. 0 or 2.5 to 3.5, dep ending upon the indica tions. Lab Interpretation (test Abnormal code = 27377-9) [facility] 13:59:24 Test Item Value Reference Range Interpretation Comments Fibrinogen (test code = 1715353653) 255 mg/dL 167-453 Lab Interpretation (test code = Normal 49195-2) [facility] / [id number] 13:59:24 Test Item Value Reference Range Interpretation Comments PROTIME PATIENT (test 19.7 See_Comment H [Auto mated message] code = 5964-2) The system [employer] generated this result transmitted ref erence range: 10.1 - 1 2.6 Seconds. The reference range was not used to int erpret this result as normal/abnormal . INR (test code = 6301-6) 1.7 Nor mal INR <1.1; Warfarin Therap eutic range 2.0 to 3. 0 or 2.5 to 3.5, dep ending upon the indica tions. Lab Interpretation (test Abnormal code = 17537-0) [facility]24 Test Item Value Reference Range Interpretation Comments Fibrinogen (test code = 7880911248) 255 mg/dL 167-453 Lab Interpretation (test code = Normal 13789-6) [facility] [id number] 13:42:53 Test Item Value Reference Range Interpretation Comments HIT-Ab (test code = Positive Negative A 48180-9) MIKAYLA (test code = MIKAYLA) Although a positive result obtained using this assay may indicate the presence of heparin-associated antibodies, a positive result DOES NOT CONFIRM the diagnosis of HIT. Some patiens may have naturally occurring antibodies to PF4. The positive or negative result should be used with other information, including the clinical context, in forming a diagnosis such as the ?4T score and the 2013 [place] [employer] guidelines. Lab Interpretation (test Abnormal code = 64446-8) [facility]2023-07-01 13:42:53 Test Item Value Reference Range Interpretation Comments HIT-Ab (test code = Positive Negative A 96290-0) MIKAYLA (test code = MIKAYLA) Although a positive result obtained using this assay may indicate the presence of heparin-associated antibodies, a positive result DOES NOT CONFIRM the diagnosis of HIT. Some patiens may have naturally occurring antibodies to PF4. The positive or negative result should be used with other information, including the clinical context, in forming a diagnosis such as the ?4T score and the 2013 [place] [employer] guidelines. Lab Interpretation (test Abnormal code = 95418-7) [facility]2023-07-01 13:42:53 Test Item Value Reference Range Interpretation Comments HIT-Ab (test code = Positive Negative A 10501-0) MIKAYLA (test code = MIKAYLA) Although a positive result obtained using this assay may indicate the presence of heparin-associated antibodies, a positive result DOES NOT CONFIRM the diagnosis of HIT. Some patiens may have naturally occurring antibodies to PF4. The positive or negative result should be used with other information, including the clinical context, in forming a diagnosis such as the ?4T score and the 2013 [place] [employer] guidelines. Lab Interpretation (test Abnormal code = 16529-1) [facility] [id number] 13:42:53 Test Item Value Reference Range Interpretation Comments HIT-Ab (test code = Positive Negative A 94661-8) MIKAYLA (test code = MIKAYLA) Although a positive result obtained using this assay may indicate the presence of heparin-associated antibodies, a positive result DOES NOT CONFIRM the diagnosis of HIT. Some patiens may have naturally occurring antibodies to PF4. The positive or negative result should be used with other information, including the clinical context, in forming a diagnosis such as the ?4T score and the 2013 [place] [employer] guidelines. Lab Interpretation (test Abnormal code = 56523-5) [place] [id number] 12:53:38 Test Item Value Reference Range Interpretation Comments PHOSPHORUS (test code = 7855238122) 2.7 mg/dL 2.5-5.0 Lab Interpretation (test code = Normal 04392-4) [place] [id number] 12:53:38 Test Item Value Reference Range Interpretation Comments PHOSPHORUS (test code = 4549039954) 2.7 mg/dL 2.5-5.0 Lab Interpretation (test code = Normal 97888-3) [facility] GLUCOSE (AUTOMATED)2023-03-02 12:46:08 Test Item Value Reference Range Interpretation Comments POCT GLU (test code = 6515468752) 119 mg/dL 70-110 H Lab Interpretation (test code = Abnormal 42069-5) [facility] GLUCOSE (AUTOMATED)2023-03-02 12:46:08 Test Item Value Reference Range Interpretation Comments POCT GLU (test code = 1782860786) 119 mg/dL 70-110 H Lab Interpretation (test code = Abnormal 69586-8) [facility] [id number] 12:40:00 Test Item Value Reference Range Interpretation Comments ABO & RH (test code = 20) O POSITIVE IAT (test code = 1185) Negative [facility] [id number] 12:40:00 Test Item Value Reference Range Interpretation Comments ABO & RH (test code = 20) O POSITIVE IAT (test code = 1185) Negative [facility] GLUCOSE (AUTOMATED)2023-03-02 09:16:05 Test Item Value Reference Range Interpretation Comments POCT GLU (test code = 2966188692) 126 mg/dL 70-110 H Lab Interpretation (test code = Abnormal 12291-4) [facility] GLUCOSE (AUTOMATED)2023-03-02 09:16:05 Test Item Value Reference Range Interpretation Comments POCT GLU (test code = 5063588860) 126 mg/dL 70-110 H Lab Interpretation (test code = Abnormal 51418-6) [facility] GLUCOSE (AUTOMATED)2023-03-02 04:58:47 Test Item Value Reference Range Interpretation Comments POCT GLU (test code = 9486352620) 131 mg/dL 70-110 H Lab Interpretation (test code = Abnormal 74386-8) [facility] GLUCOSE (AUTOMATED)2023-03-02 04:58:47 Test Item Value Reference Range Interpretation Comments POCT GLU (test code = 0706970986) 131 mg/dL 70-110 H Lab Interpretation (test code = Abnormal 13997-5) [facility] GLUCOSE (AUTOMATED)2023-03-02 01:03:24 Test Item Value Reference Range Interpretation Comments POCT GLU (test code = 5450097506) 205 mg/dL 70-110 H Lab Interpretation (test code = Abnormal 65809-8) [facility] GLUCOSE (AUTOMATED)2023-03-02 01:03:24 Test Item Value Reference Range Interpretation Comments POCT GLU (test code = 5635641934) 205 mg/dL 70-110 H Lab Interpretation (test code = Abnormal 69741-8) [facility] (NA, K, CL, CO2, GLUCOSE, BUN, CREATININE, CA)2023-03-01 23:08:05 Test Item Value Reference Range Interpretation Comments NA (test code = 134 mmol/L 135-145 L 3118517133) K (test code = 4.1 mmol/L 3.5-5.0 5991622884) CL (test code = 106 mmol/L 98-108 7746534009) CO2 TOTAL (test code = 20 mmol/L 23-31 L 9975346358) AGAP (test code = 8 2-16 2976105386) BUN (test code = 28 mg/dL 7-23 H 4549752722) GLUCOSE (test code = 232 mg/dL 70-110 H 7482693281) CREATININE (test code = 2.15 mg/dL 0.60-1.25 H 6767699917) CALCIUM (test code = 6.9 mg/dL 8.6-10.6 L 8343513493) eGFR (test code = 31.4 mL/min/1.73m2 2858015891) MIKAYLA (test code = MIKAYLA) Association of Glomerular Filtration Rate (GFR) and Staging of Kidney Disease* + --+ --+ ------+| GFR (mL/min/1.73 m2) ?| With Kidney Damage ?| ?Without Kidney Damage+ --------+ --------+ +| ?>90 ?| ?Stage one ?| ? Normal ?+ ---+ ---+ -------+| ?60-89 ?| ?Stage two ?| ? Decreased GFR ? + --+ --+ ------+| ?30-59 ?| ?Stage three ?| ? Stage three ? + --+ --+ ------+| ?15-29 ?| ?Stage four ? | ? Stage four ?+ ---+ ---+ -------+| ?<15 (or dialysis) ? ?| ?Stage five ? | ? Stage five ?+ ---+ ---+ -------+ *Each stage assumes the associated GFR level has been in effect for at least three months. ?Stages 1 to 5, with or without kidney disease, indicate chronic kidney disease. Notes: Determination of stages one and two (with eGFR >59mL/min/1.73 m2) requires estimation of kidney damage for at least three months as defined by structural or functional abnormalities of the kidney, manifested by either:Pathological abnormalities or Markers of kidney damage (including abnormalities in the composition of the blood or urine or abnormalities in imaging tests). Lab Interpretation Abnormal (test code = 76452-1) [facility] METABOLIC PANEL (NA, K, CL, CO2, GLUCOSE, BUN, CREATININE, CA)2023-03-01 23:08:05 Test Item Value Reference Range Interpretation Comments NA (test code = 134 mmol/L 135-145 L 9728976359) K (test code = 4.1 mmol/L 3.5-5.0 7901056451) CL (test code = 106 mmol/L 98-108 0514989920) CO2 TOTAL (test code = 20 mmol/L 23-31 L 1690541565) AGAP (test code = 8 2-16 3430768204) BUN (test code = 28 mg/dL 7-23 H 5949274296) GLUCOSE (test code = 232 mg/dL 70-110 H 8665864978) CREATININE (test code = 2.15 mg/dL 0.60-1.25 H 3036549703) CALCIUM (test code = 6.9 mg/dL 8.6-10.6 L 8860499021) eGFR (test code = 31.4 mL/min/1.73m2 0927268795) MIKAYLA (test code = MIKAYLA) Association of Glomerular Filtration Rate (GFR) and Staging of Kidney Disease* + --+ --+ ------+| GFR (mL/min/1.73 m2) ?| With Kidney Damage ?| ?Without Kidney Damage+ --------+ --------+ +| ?>90 ?| ?Stage one ?| ? Normal ?+ ---+ ---+ -------+| ?60-89 ?| ?Stage two ?| ? Decreased GFR ? + --+ --+ ------+| ?30-59 ?| ?Stage three ?| ? Stage three ? + --+ --+ ------+| ?15-29 ?| ?Stage four ? | ? Stage four ?+ ---+ ---+ -------+| ?<15 (or dialysis) ? ?| ?Stage five ? | ? Stage five ?+ ---+ ---+ -------+ *Each stage assumes the associated GFR level has been in effect for at least three months. ?Stages 1 to 5, with or without kidney disease, indicate chronic kidney disease. Notes: Determination of stages one and two (with eGFR >59mL/min/1.73 m2) requires estimation of kidney damage for at least three months as defined by structural or functional abnormalities of the kidney, manifested by either:Pathological abnormalities or Markers of kidney damage (including abnormalities in the composition of the blood or urine or abnormalities in imaging tests). Lab Interpretation Abnormal (test code = 43032-1) [facility] (for use with Heparin Infusion)2023-03-01 23:05:48 Test Item Value Reference Range Interpretation Comments APTT Patient (test code 56 See_Comment H [Au tomated message] = 3173-2) The system [employer] generated this result transmitted ref erence range: 26 - 36 Seconds. The reference range was not used to int erpret this result as normal/abnormal . Lab Interpretation (test Abnormal code = 66777-8) [facility] (for use with Heparin Infusion)2023-03-01 23:05:48 Test Item Value Reference Range Interpretation Comments APTT Patient (test code 56 See_Comment H [Au tomated message] = 3173-2) The system [employer] generated this result transmitted ref erence range: 26 - 36 Seconds. The reference range was not used to int erpret this result as normal/abnormal . Lab Interpretation (test Abnormal code = 61786-1) [facility] GLUCOSE (AUTOMATED)2023-03-01 22:44:15 Test Item Value Reference Range Interpretation Comments POCT GLU (test code = 1777759955) 251 mg/dL 70-110 H Lab Interpretation (test code = Abnormal 00108-1) [facility] GLUCOSE (AUTOMATED)2023-03-01 22:44:15 Test Item Value Reference Range Interpretation Comments POCT GLU (test code = 7911347903) 251 mg/dL 70-110 H Lab Interpretation (test code = Abnormal 19044-9) [facility] 21:11:01 Test Item Value Reference Range Interpretation Comments Height (test code = 74 in 2435798565) Weight (test code = 263 lbs 2237844020) Systolic BP (test code 100 mmHg = 4799595075) Diastolic BP (test 52 mmHg code = 2493857028) Heart Rate (test code 71 bpm = 2860623912) LVOT stroke volume 88.30 cm3 (test code = 1355484979) EF(Teich) (test code = 63.80 % 7153559239) LVIDD (test code = 4.90 cm 0548307431) LVIDS (test code = 3.20 cm 8643815383) Left Ventricular End 40.4 mL Systolic Volume by Teichholz Method (test code = 3826092) Left Ventricular End 111.6 mL Diastolic Volume by Teichholz Method (test code = 4230841) IVS (test code = 1.03 cm 2742309361) LVPWD (test code = 0.92 cm 5558937365) LVOT diameter (test 2.04 cm code = 0304013619) LVOT area (test code = 3.30 cm2 6020476001) FS (test code = 35 % 9406338233) MV Peak E Artemio (test 166.2 cm/s code = 3182677180) MV Peak A Artemio (test 118.5 cm/s code = 5248669726) E/A ratio (test code = 1.40 ratio 8746079453) E wave decelartion 0.45 s time (test code = 5048437735) LVOT peak artemio (test 157.2 cm/s code = 0500862629) LVOT mn grad (test 5.5 mmHg code = 6988365632) BSA (test code = 2.44 m2 3280363930) LA size (test code = 4.4 cm 4054314658) Aortic valve mean 287.2 cm/s velocity (test code = 0145022701) Ao peak artemio (test code 449.6 cm/s = 6945457892) Ao VTI (test code = 72.0 cm 3145866942) AV LVOT peak gradient 9.9 mmHg (test code = 8355900301) LVOT peak VTI (test 26.9 cm code = 2863795800) AV area by cont VTI 1.2 cm2 (test code = 7787829610) AV area peak artemio (test 1.2 cm2 code = 0321535394) LV V1 mean (test code 110.70 cm/s = 7730249723) Ao max PG (test code = 80.90 mm[Hg] 8388940442) MV mean gradient (test 4.5 mmHg code = 7390662049) MV peak gradient (test 13.2 mmHg code = 6332294233) MV pk artemio (test code = 181.6 cm/s 6149318365) MV valve area p 1/2 1.66 cm2 method (test code = 2110168430) MV valve area by 1.47 cm2 continuity eq (test code = 1317546302) MV VTI (test code = 60.2 cm 1056605085) MV dec slope (test 384.40 cm/s2 code = 4000169215) MV P1/2t max artemio (test 173.70 cm/s code = 7114768676) MV V2 mean (test code 97.20 cm/s = 0780377083) Ao root diam (test 2.90 cm code = 5949839229) AV peak gradient (test 80.9 mmHg code = 5612311570) AV valve area (test 1.23 cm2 code = 5973256533) AV mean gradient (test 39.6 mmHg code = 6805387819) Aortic root (test code 2.9 cm = 1639956553) Ao root annulus (test 2.9 cm code = 6730859494) PW (test code = 0.92 cm 0.6-1.4 1059187219) EF - 2D (test code = 63.80 % 54553061) Interventricular 1.03 cm Septum Diastolic Thickness by 2D (test code = 6732741) Radiology Study observation (narrative) (test code = 61584-5) MIKAYLA (test code = MIKAYLA) ?Left?Ventricle: Left ventricle size is normal. Normal wall thickness. Septal motion is consistent with post-operative status. . Hyperdynamic systolic function with a visually estimated EF of greater than 65%. Diastolic dysfunction. ?Right?Ventricle: Right ventricle size is normal. Normal systolic function. ?Mitral?Valve: Bioprosthetic valve. MV mean gradient is 4.5 mmHg at 70 bpm. PHT is 132 msec. Peak E velocity is 1.8 m/s. EOA by continuity equation is 1.03 cm2. DVI is 2.3. This suggests likely normal prosthetic valve function. When compared to prior studies, hemodynamics seem stable. ?Aortic?Valve: Bioprosthetic valve. Mild paravalvular leak. ?DVI: 0.37. Normal is > 0.25. AV mean gradient is 39.6 mmHg. AV peak velocity is 449.6 cm/s. Acceleration time is 100 msec. EOA indexed is 0.5 cm/m2. This suggests possible patient prosthesis mismatch versus less likely bioprosthetic valve stenosis. Recommend DEVONTE for further evaluation if clinically indicated. ?Tricuspid?Valve: Insufficient tricuspid regurgitation jet to estimate RVSP . ?Pericardium: No pericardial effusion. Left VentricleLeft ventricle size is normal. Normal wall thickness. Septal motion is consistent with post-operative status. . Hyperdynamic systolic function with a visually estimated EF of greater than 65%. Diastolic dysfunction.Right VentricleRight ventricle size is normal. Normal systolic function.Left AtriumLeft atrium size is normal.Right AtriumRight atrium size is normal.IVC/SVCIVC diameter is less than or equal to 21 mm and decreases greater than 50% during inspiration; therefore the estimated right atrial pressure is normal (~0-5 mmHg).Mitral ValveBioprosthetic valve. MV mean gradient is 4.5 mmHg at 70 bpm. PHT is 132 msec. Peak E velocity is 1.8 m/s. EOA by continuity equation is 1.03 cm2. DVI is 2.3. This suggests likely normal prosthetic valve function. When compared to prior studies, hemodynamics seem stable.Tricuspid ValveTricuspid valve structure is normal. Insufficient tricuspid regurgitation jet to estimate RVSP .Aortic ValveBioprosthetic valve. Mild paravalvular leak. DVI: 0.37. Normal is > 0.25. AV mean gradient is 39.6 mmHg. AV peak velocity is 449.6 cm/s. Acceleration time is 100 msec. EOA indexed is 0.5 cm/m2. This suggests possible patient prosthesis mismatch versus less likely bioprosthetic valve stenosis. Recommend DEVONTE for further evaluation if clinically indicated.Pulmonic ValveNot well visualized. Pulmonic valve is normal in structure and function.Ascending AortaNormal sized aortic root.PericardiumThe pericardium is normal. No pericardial effusion.Study DetailsA limited echocardiogram was performed using 2D, color flow Doppler and spectral Doppler. 5 mL of Lumason ultrasound enhancing agent used. [facility] [id number] 17:15:01 Test Item Value Reference Range Interpretation Comments PHOSPHORUS (test code = 0380521420) 2.7 mg/dL 2.5-5.0 Lab Interpretation (test code = Normal 03965-2) [facility] (NA, K, CL, CO2, GLUCOSE, BUN, CREATININE, CA)2023-03-01 17:15:01 Test Item Value Reference Range Interpretation Comments NA (test code = 135 mmol/L 135-145 7708349052) K (test code = 4.1 mmol/L 3.5-5.0 8167646825) CL (test code = 105 mmol/L 98-108 3986117141) CO2 TOTAL (test code = 20 mmol/L 23-31 L 9915778539) AGAP (test code = 10 2-16 4515260981) BUN (test code = 27 mg/dL 7-23 H 2730441698) GLUCOSE (test code = 190 mg/dL 70-110 H 7565445953) CREATININE (test code = 2.08 mg/dL 0.60-1.25 H 3966903363) CALCIUM (test code = 6.9 mg/dL 8.6-10.6 L 7209131290) eGFR (test code = 32.6 mL/min/1.73m2 1844189782) MIKAYLA (test code = MIKAYLA) Association of Glomerular Filtration Rate (GFR) and Staging of Kidney Disease* + --+ --+ ------+| GFR (mL/min/1.73 m2) ?| With Kidney Damage ?| ?Without Kidney Damage+ --------+ --------+ +| ?>90 ?| ?Stage one ?| ? Normal ?+ ---+ ---+ -------+| ?60-89 ?| ?Stage two ?| ? Decreased GFR ? + --+ --+ ------+| ?30-59 ?| ?Stage three ?| ? Stage three ? + --+ --+ ------+| ?15-29 ?| ?Stage four ? | ? Stage four ?+ ---+ ---+ -------+| ?<15 (or dialysis) ? ?| ?Stage five ? | ? Stage five ?+ ---+ ---+ -------+ *Each stage assumes the associated GFR level has been in effect for at least three months. ?Stages 1 to 5, with or without kidney disease, indicate chronic kidney disease. Notes: Determination of stages one and two (with eGFR >59mL/min/1.73 m2) requires estimation of kidney damage for at least three months as defined by structural or functional abnormalities of the kidney, manifested by either:Pathological abnormalities or Markers of kidney damage (including abnormalities in the composition of the blood or urine or abnormalities in imaging tests). Lab Interpretation Abnormal (test code = 75283-4) [facility] [id number] 17:15:01 Test Item Value Reference Range Interpretation Comments PHOSPHORUS (test code = 9403104837) 2.7 mg/dL 2.5-5.0 Lab Interpretation (test code = Normal 12930-3) [facility] (NA, K, CL, CO2, GLUCOSE, BUN, CREATININE, CA)2023-03-01 17:15:01 Test Item Value Reference Range Interpretation Comments NA (test code = 135 mmol/L 135-145 8009304189) K (test code = 4.1 mmol/L 3.5-5.0 9669154889) CL (test code = 105 mmol/L 98-108 1310988391) CO2 TOTAL (test code = 20 mmol/L 23-31 L 8035530577) AGAP (test code = 10 2-16 8047431070) BUN (test code = 27 mg/dL 7-23 H 6553196965) GLUCOSE (test code = 190 mg/dL 70-110 H 7137516472) CREATININE (test code = 2.08 mg/dL 0.60-1.25 H 2972692074) CALCIUM (test code = 6.9 mg/dL 8.6-10.6 L 9585982496) eGFR (test code = 32.6 mL/min/1.73m2 3878363180) MIKAYLA (test code = MIKAYLA) Association of Glomerular Filtration Rate (GFR) and Staging of Kidney Disease* + --+ --+ ------+| GFR (mL/min/1.73 m2) ?| With Kidney Damage ?| ?Without Kidney Damage+ --------+ --------+ +| ?>90 ?| ?Stage one ?| ? Normal ?+ ---+ ---+ -------+| ?60-89 ?| ?Stage two ?| ? Decreased GFR ? + --+ --+ ------+| ?30-59 ?| ?Stage three ?| ? Stage three ? + --+ --+ ------+| ?15-29 ?| ?Stage four ? | ? Stage four ?+ ---+ ---+ -------+| ?<15 (or dialysis) ? ?| ?Stage five ? | ? Stage five ?+ ---+ ---+ -------+ *Each stage assumes the associated GFR level has been in effect for at least three months. ?Stages 1 to 5, with or without kidney disease, indicate chronic kidney disease. Notes: Determination of stages one and two (with eGFR >59mL/min/1.73 m2) requires estimation of kidney damage for at least three months as defined by structural or functional abnormalities of the kidney, manifested by either:Pathological abnormalities or Markers of kidney damage (including abnormalities in the composition of the blood or urine or abnormalities in imaging tests). Lab Interpretation Abnormal (test code = 44057-2) [facility] GLUCOSE (AUTOMATED)2023-03-01 16:42:01 Test Item Value Reference Range Interpretation Comments POCT GLU (test code = 4189606828) 201 mg/dL 70-110 H Lab Interpretation (test code = Abnormal 03839-1) [facility] GLUCOSE (AUTOMATED)2023-03-01 16:42:01 Test Item Value Reference Range Interpretation Comments POCT GLU (test code = 6884739893) 201 mg/dL 70-110 H Lab Interpretation (test code = Abnormal 00969-2) [facility] GLUCOSE (AUTOMATED)2023-03-01 13:14:25 Test Item Value Reference Range Interpretation Comments POCT GLU (test code = 4103230569) 173 mg/dL 70-110 H Lab Interpretation (test code = Abnormal 21288-4) [facility] GLUCOSE (AUTOMATED)2023-03-01 13:14:25 Test Item Value Reference Range Interpretation Comments POCT GLU (test code = 3235070642) 173 mg/dL 70-110 H Lab Interpretation (test code = Abnormal 44739-5) [facility] GLUCOSE (AUTOMATED)2023-03-01 09:04:56 Test Item Value Reference Range Interpretation Comments POCT GLU (test code = 1595481801) 203 mg/dL 70-110 H Lab Interpretation (test code = Abnormal 67041-4) [facility] GLUCOSE (AUTOMATED)2023-03-01 09:04:56 Test Item Value Reference Range Interpretation Comments POCT GLU (test code = 8203662204) 203 mg/dL 70-110 H Lab Interpretation (test code = Abnormal 10531-8) [facility] + Lactic [id number] 09:02:09 Test Item Value Reference Range Interpretation Comments PH (test code = 2) 7.48 7.35-7.45 H PCO2 (test code = 27 See_Comment L [Automate d 2960872437) message] The sy stem which generated this result transmitted reference range : 35 - 45 mmHg. The reference range was not used to interpret this result as normal/abnormal . PO2 (test code = 130 See_Comment H [Automated 2610079100) message] The sy stem which generated this result transmitted reference range : 80 - 100 mmHg. The reference range was not used to interpret this result as normal/abnormal . HCO3 (test code = 20 See_Comment L [Automate d 8346298378) message] The sy stem which generated this result transmitted reference range : 22 - 26 mEq/L. The reference range was not used to interpret this result as normal/abnormal . BE (test code = -2.8 See_Comment [Automated 5426273187) message] The sy stem which generated this result transmitted reference range : -3.0 - 3.0 mEq/ L. The reference r kyra was not used to interpret this result as normal/abnormal . THB (test code = 9.0 g/dL 13.5-18.0 L 8847476922) %O2HB (test code = 97.2 % 94.0-99.0 5651998527) %COHB ART (test code = 1.6 % 0.0-1.5 H 0289280630) %METHB ART (test code = 0.3 % 0.4-1.5 L 9461751482) VOL%O2 ART (test code = 12.6 % 15.0-23.0 L 2699468412) NA (test code = 133 mmol/L 135-145 L 7919824412) K+ (test code = 4.3 mmol/L 3.5-5.0 7034212101) AC CA IONZ (test code = 4.10 mg/dL 4.50-5.30 L 8649898893) GLUCOSE (test code = 198 mg/dL 70-110 H 8781046009) LACTIC ACID (test code 1.61 mmol/L 0.50-2.20 = 6481483102) Lab Interpretation Abnormal (test code = 82606-3) [facility] + Lactic [id number] 09:02:09 Test Item Value Reference Range Interpretation Comments PH (test code = 2) 7.48 7.35-7.45 H PCO2 (test code = 27 See_Comment L [Automate d 2222365811) message] The sy stem which generated this result transmitted reference range : 35 - 45 mmHg. The reference range was not used to interpret this result as normal/abnormal . PO2 (test code = 130 See_Comment H [Automated 8299722955) message] The sy stem which generated this result transmitted reference range : 80 - 100 mmHg. The reference range was not used to interpret this result as normal/abnormal . HCO3 (test code = 20 See_Comment L [Automate d 0440964332) message] The sy stem which generated this result transmitted reference range : 22 - 26 mEq/L. The reference range was not used to interpret this result as normal/abnormal . BE (test code = -2.8 See_Comment [Automated [id number]) message] The sy stem which generated this result transmitted reference range : -3.0 - 3.0 mEq/ L. The reference r kyra was not used to interpret this result as normal/abnormal . THB (test code = 9.0 g/dL 13.5-18.0 L 2761559503) %O2HB (test code = 97.2 % 94.0-99.0 0636521299) %COHB ART (test code = 1.6 % 0.0-1.5 H 0125938370) %METHB ART (test code = 0.3 % 0.4-1.5 L 4500555601) VOL%O2 ART (test code = 12.6 % 15.0-23.0 L 8527565421) NA (test code = 133 mmol/L 135-145 L 4932530456) K+ (test code = 4.3 mmol/L 3.5-5.0 0725981913) AC CA IONZ (test code = 4.10 mg/dL 4.50-5.30 L 7805831855) GLUCOSE (test code = 198 mg/dL 70-110 H 2174618383) LACTIC ACID (test code 1.61 mmol/L 0.50-2.20 = 0395796776) Lab Interpretation Abnormal (test code = 10232-0) [facility] GLUCOSE (AUTOMATED)2023-03-01 05:14:29 Test Item Value Reference Range Interpretation Comments POCT GLU (test code = 5092567256) 223 mg/dL 70-110 H Lab Interpretation (test code = Abnormal 56831-3) [facility] GLUCOSE (AUTOMATED)2023-03-01 05:14:29 Test Item Value Reference Range Interpretation Comments POCT GLU (test code = 3878233204) 223 mg/dL 70-110 H Lab Interpretation (test code = Abnormal 30664-8) [facility] GLUCOSE (AUTOMATED)2023-03-01 01:36:56 Test Item Value Reference Range Interpretation Comments POCT GLU (test code = 2591983382) 212 mg/dL 70-110 H Lab Interpretation (test code = Abnormal 77063-4) [facility] GLUCOSE (AUTOMATED)2023-03-01 01:36:56 Test Item Value Reference Range Interpretation Comments POCT GLU (test code = 5910587573) 212 mg/dL 70-110 H Lab Interpretation (test code = Abnormal 25480-9) [facility] [id number] 21:18:12 Test Item Value Reference Range Interpretation Comments PH (test code = 2) 7.42 7.35-7.45 PCO2 (test code = 30 See_Comment L [Automate d 1801700697) message] The sy stem which generated this result transmitted reference range : 35 - 45 mmHg. The reference range was not used to interpret this result as normal/abnormal . PO2 (test code = 104 See_Comment H [Automated 9403866503) message] The sy stem which generated this result transmitted reference range : 80 - 100 mmHg. The reference range was not used to interpret this result as normal/abnormal . HCO3 (test code = 19 See_Comment L [Automate d 7278677306) message] The sy stem which generated this result transmitted reference range : 22 - 26 mEq/L. The reference range was not used to interpret this result as normal/abnormal . BE (test code = -4.4 See_Comment L [Automated 6579428754) message] The sy stem which generated this result transmitted reference range : -3.0 - 3.0 mEq/ L. The reference r kyra was not used to interpret this result as normal/abnormal . THB (test code = 8.5 g/dL 13.5-18.0 L 1253303396) %O2HB (test code = 96.7 % 94.0-99.0 5191190456) %COHB ART (test code = 1.3 % 0.0-1.5 6660262140) %METHB ART (test code = 0.1 % 0.4-1.5 L 7668051858) VOL%O2 ART (test code = 11.8 % 15.0-23.0 L 3631353116) NA (test code = 132 mmol/L 135-145 L 3051878640) K+ (test code = 4.4 mmol/L 3.5-5.0 4827163682) AC CA IONZ (test code = 4.20 mg/dL 4.50-5.30 L 8201648271) GLUCOSE (test code = 219 mg/dL 70-110 H 7917733840) LACTIC ACID (test code 1.74 mmol/L 0.50-2.20 = 3347486909) Lab Interpretation Abnormal (test code = 72272-4) [facility] [id number] 21:18:12 Test Item Value Reference Range Interpretation Comments PH (test code = 2) 7.42 7.35-7.45 PCO2 (test code = 30 See_Comment L [Automate d 9311838703) message] The sy stem which generated this result transmitted reference range : 35 - 45 mmHg. The reference range was not used to interpret this result as normal/abnormal . PO2 (test code = 104 See_Comment H [Automated 4497820064) message] The sy stem which generated this result transmitted reference range : 80 - 100 mmHg. The reference range was not used to interpret this result as normal/abnormal . HCO3 (test code = 19 See_Comment L [Automate d 5106197054) message] The sy stem which generated this result transmitted reference range : 22 - 26 mEq/L. The reference range was not used to interpret this result as normal/abnormal . BE (test code = -4.4 See_Comment L [Automated 3065337427) message] The sy stem which generated this result transmitted reference range : -3.0 - 3.0 mEq/ L. The reference r kyra was not used to interpret this result as normal/abnormal . THB (test code = 8.5 g/dL 13.5-18.0 L 9999301808) %O2HB (test code = 96.7 % 94.0-99.0 6870278431) %COHB ART (test code = 1.3 % 0.0-1.5 7945599192) %METHB ART (test code = 0.1 % 0.4-1.5 L 8595912066) VOL%O2 ART (test code = 11.8 % 15.0-23.0 L 9809320678) NA (test code = 132 mmol/L 135-145 L 5320144808) K+ (test code = 4.4 mmol/L 3.5-5.0 1813285797) AC CA IONZ (test code = 4.20 mg/dL 4.50-5.30 L 4021969083) GLUCOSE (test code = 219 mg/dL 70-110 H 6821692665) LACTIC ACID (test code 1.74 mmol/L 0.50-2.20 = 9795873237) Lab Interpretation Abnormal (test code = 71800-9) [facility] GLUCOSE (AUTOMATED)2023-02-28 20:47:00 Test Item Value Reference Range Interpretation Comments POCT GLU (test code = 7717003420) 227 mg/dL 70-110 H Lab Interpretation (test code = Abnormal 06865-7) [facility] GLUCOSE (AUTOMATED)2023-02-28 20:47:00 Test Item Value Reference Range Interpretation Comments POCT GLU (test code = 1807043917) 227 mg/dL 70-110 H Lab Interpretation (test code = Abnormal 30871-6) [facility] GLUCOSE (AUTOMATED)2023-02-28 16:33:04 Test Item Value Reference Range Interpretation Comments POCT GLU (test code = 7643587673) 203 mg/dL 70-110 H Lab Interpretation (test code = Abnormal 67469-4) [facility] GLUCOSE (AUTOMATED)2023-02-28 16:33:04 Test Item Value Reference Range Interpretation Comments POCT GLU (test code = 6654365094) 203 mg/dL 70-110 H Lab Interpretation (test code = Abnormal 62393-7) [facility] Lactic [id number] 15:01:52 Test Item Value Reference Range Interpretation Comments PH (test code = 2) 7.44 7.35-7.45 PCO2 (test code = 27 See_Comment L [Automate d 2979334569) message] The sy stem which generated this result transmitted reference range : 35 - 45 mmHg. The reference range was not used to interpret this result as normal/abnormal . PO2 (test code = 57 See_Comment L [Automated 8648738282) message] The sy stem which generated this result transmitted reference range : 80 - 100 mmHg. The reference range was not used to interpret this result as normal/abnormal . HCO3 (test code = 18 See_Comment L [Automate d 2415184114) message] The sy stem which generated this result transmitted reference range : 22 - 26 mEq/L. The reference range was not used to interpret this result as normal/abnormal . BE (test code = -5.5 See_Comment L [Automated 0663568987) message] The sy stem which generated this result transmitted reference range : -3.0 - 3.0 mEq/ L. The reference r kyra was not used to interpret this result as normal/abnormal . THB (test code = 9.5 g/dL 13.5-18.0 L 8333416561) %O2HB (test code = 89.5 % 94.0-99.0 L 1214896546) %COHB ART (test code = 1.5 % 0.0-1.5 2373457056) %METHB ART (test code = 0.3 % 0.4-1.5 L 5038305938) VOL%O2 ART (test code = 12.0 % 15.0-23.0 L 6833768662) NA (test code = 132 mmol/L 135-145 L 5610665311) K+ (test code = 4.2 mmol/L 3.5-5.0 3538406710) AC CA IONZ (test code = 4.10 mg/dL 4.50-5.30 L 0391410950) GLUCOSE (test code = 194 mg/dL 70-110 H 5833748848) LACTIC ACID (test code 3.08 mmol/L 0.50-2.20 H = 9630576817) Lab Interpretation Abnormal (test code = 92627-5) [facility] Lactic [id number] 15:01:52 Test Item Value Reference Range Interpretation Comments PH (test code = 2) 7.44 7.35-7.45 PCO2 (test code = 27 See_Comment L [Automate d 5670657962) message] The sy stem which generated this result transmitted reference range : 35 - 45 mmHg. The reference range was not used to interpret this result as normal/abnormal . PO2 (test code = 57 See_Comment L [Automated 0487599310) message] The sy stem which generated this result transmitted reference range : 80 - 100 mmHg. The reference range was not used to interpret this result as normal/abnormal . HCO3 (test code = 18 See_Comment L [Automate d 3611940362) message] The sy stem which generated this result transmitted reference range : 22 - 26 mEq/L. The reference range was not used to interpret this result as normal/abnormal . BE (test code = -5.5 See_Comment L [Automated 6883843456) message] The sy stem which generated this result transmitted reference range : -3.0 - 3.0 mEq/ L. The reference r kyra was not used to interpret this result as normal/abnormal . THB (test code = 9.5 g/dL 13.5-18.0 L 6903502481) %O2HB (test code = 89.5 % 94.0-99.0 L 4905700074) %COHB ART (test code = 1.5 % 0.0-1.5 5672609559) %METHB ART (test code = 0.3 % 0.4-1.5 L 6231570524) VOL%O2 ART (test code = 12.0 % 15.0-23.0 L 2476159329) NA (test code = 132 mmol/L 135-145 L 7233462572) K+ (test code = 4.2 mmol/L 3.5-5.0 0955921381) AC CA IONZ (test code = 4.10 mg/dL 4.50-5.30 L 0967400086) GLUCOSE (test code = 194 mg/dL 70-110 H 2756242573) LACTIC ACID (test code 3.08 mmol/L 0.50-2.20 H = 1596874960) Lab Interpretation Abnormal (test code = 35176-3) [facility]. [id number] 12:53:51 Test Item Value Reference Range Interpretation Comments Miscellaneous Test (test See scanned report code = 2624039224) Performing Lab (test code ARUP = 4868427599) [facility]. Ipstzubtw8021-70-29 12:53:51 Test Item Value Reference Range Interpretation Comments Miscellaneous Test (test See scanned report code = 3122909581) Performing Lab (test code ARUP = 9069312532) [facility]. [id number] 12:53:51 Test Item Value Reference Range Interpretation Comments Miscellaneous Test (test See scanned report code = 5487940284) Performing Lab (test code ARUP = 0827093304) [facility]. Hzvdwrijj1541-04-02 12:53:51 Test Item Value Reference Range Interpretation Comments Miscellaneous Test (test See scanned report code = 1522858329) Performing Lab (test code ARUP = 1999823796) [facility] GLUCOSE (AUTOMATED)2023-02-28 12:41:04 Test Item Value Reference Range Interpretation Comments POCT GLU (test code = 4180742938) 180 mg/dL 70-110 H Lab Interpretation (test code = Abnormal 68629-3) [facility] GLUCOSE (AUTOMATED)2023-02-28 12:41:04 Test Item Value Reference Range Interpretation Comments POCT GLU (test code = 9654694304) 180 mg/dL 70-110 H Lab Interpretation (test code = Abnormal 57500-7) [facility] GLUCOSE (AUTOMATED)2023-02-28 12:39:42 Test Item Value Reference Range Interpretation Comments POCT GLU (test code = 5855683286) 35 mg/dL 70-110 LL Lab Interpretation (test code = Abnormal 44753-8) [facility] GLUCOSE (AUTOMATED)2023-02-28 12:39:42 Test Item Value Reference Range Interpretation Comments POCT GLU (test code = 1925879519) 35 mg/dL 70-110 LL Lab Interpretation (test code = Abnormal 81113-5) [facility] GLUCOSE (AUTOMATED)2023-02-28 09:26:10 Test Item Value Reference Range Interpretation Comments POCT GLU (test code = 2986346893) 166 mg/dL 70-110 H Lab Interpretation (test code = Abnormal 43095-6) [facility] GLUCOSE (AUTOMATED)2023-02-28 09:26:10 Test Item Value Reference Range Interpretation Comments POCT GLU (test code = 0594635367) 166 mg/dL 70-110 H Lab Interpretation (test code = Abnormal 10521-2) [facility] GLUCOSE (AUTOMATED)2023-02-28 05:09:21 Test Item Value Reference Range Interpretation Comments POCT GLU (test code = 5992169605) 159 mg/dL 70-110 H Lab Interpretation (test code = Abnormal 77492-1) [facility] GLUCOSE (AUTOMATED)2023-02-28 05:09:21 Test Item Value Reference Range Interpretation Comments POCT GLU (test code = 1462410249) 159 mg/dL 70-110 H Lab Interpretation (test code = Abnormal 78310-5) [facility] GLUCOSE (AUTOMATED)2023-02-28 01:52:20 Test Item Value Reference Range Interpretation Comments POCT GLU (test code = 8286476174) 184 mg/dL 70-110 H Lab Interpretation (test code = Abnormal 76884-7) [facility] GLUCOSE (AUTOMATED)2023-02-28 01:52:20 Test Item Value Reference Range Interpretation Comments POCT GLU (test code = 3833374684) 184 mg/dL 70-110 H Lab Interpretation (test code = Abnormal 16023-8) [facility] GLUCOSE (AUTOMATED)2023-02-27 21:10:26 Test Item Value Reference Range Interpretation Comments POCT GLU (test code = 6149178936) 238 mg/dL 70-110 H Lab Interpretation (test code = Abnormal 17210-7) [facility] GLUCOSE (AUTOMATED)2023-02-27 21:10:26 Test Item Value Reference Range Interpretation Comments POCT GLU (test code = 1167718334) 238 mg/dL 70-110 H Lab Interpretation (test code = Abnormal 92759-4) [id number]:23:58 Test Item Value Reference Range Interpretation Comments SPUTUM CULTURE 2+ Respiratory driss: (test code = 622-1) Commensal upper respiratory microorganisms only. Gram stain (test Few Epithelial cells code = 664-3) present MIKAYLA (test code = Bacterial pathogens MIKAYLA) associated with lower respiratory infections were not identified, which include Pseudomonas aeruginosa and Staphylococcus aureus (MRSA or MSSA). [facility] [id number] 17:23:58 Test Item Value Reference Range Interpretation Comments SPUTUM CULTURE 2+ Respiratory driss: (test code = 622-1) Commensal upper respiratory microorganisms only. Gram stain (test Few Epithelial cells code = 664-3) present MIKAYLA (test code = Bacterial pathogens MIKAYLA) associated with lower respiratory infections were not identified, which include Pseudomonas aeruginosa and Staphylococcus aureus (MRSA or MSSA). [facility] GLUCOSE (AUTOMATED)2023-02-27 17:12:51 Test Item Value Reference Range Interpretation Comments POCT GLU (test code = 7079919623) 211 mg/dL 70-110 H Lab Interpretation (test code = Abnormal 72206-1) [facility] GLUCOSE (AUTOMATED)2023-02-27 17:12:51 Test Item Value Reference Range Interpretation Comments POCT GLU (test code = 7731366656) 211 mg/dL 70-110 H Lab Interpretation (test code = Abnormal 34983-5) [facility] GLUCOSE (AUTOMATED)2023-02-27 13:06:28 Test Item Value Reference Range Interpretation Comments POCT GLU (test code = 2316923378) 89 mg/dL 70-110 Lab Interpretation (test code = Normal 88760-9) [facility] GLUCOSE (AUTOMATED)2023-02-27 13:06:28 Test Item Value Reference Range Interpretation Comments POCT GLU (test code = 7527605339) 89 mg/dL 70-110 Lab Interpretation (test code = Normal 66966-5) [facility] GLUCOSE (AUTOMATED)2023-02-27 12:23:45 Test Item Value Reference Range Interpretation Comments POCT GLU (test code = 5924381849) 124 mg/dL 70-110 H Lab Interpretation (test code = Abnormal 12394-0) [facility] GLUCOSE (AUTOMATED)2023-02-27 12:23:45 Test Item Value Reference Range Interpretation Comments POCT GLU (test code = 8005787009) 124 mg/dL 70-110 H Lab Interpretation (test code = Abnormal 57441-3) [facility] GLUCOSE (AUTOMATED)2023-02-27 11:34:26 Test Item Value Reference Range Interpretation Comments POCT GLU (test code = 0825775912) 146 mg/dL 70-110 H Lab Interpretation (test code = Abnormal 50229-0) [facility] GLUCOSE (AUTOMATED)2023-02-27 11:34:26 Test Item Value Reference Range Interpretation Comments POCT GLU (test code = 4938555085) 146 mg/dL 70-110 H Lab Interpretation (test code = Abnormal 78355-9) [facility] GLUCOSE (AUTOMATED)2023-02-27 10:20:17 Test Item Value Reference Range Interpretation Comments POCT GLU (test code = 7586446391) 202 mg/dL 70-110 H Lab Interpretation (test code = Abnormal 91845-0) [facility] GLUCOSE (AUTOMATED)2023-02-27 10:20:17 Test Item Value Reference Range Interpretation Comments POCT GLU (test code = 1964150137) 202 mg/dL 70-110 H Lab Interpretation (test code = Abnormal 45312-0) [id number]:11:30 Test Item Value Reference Range Interpretation Comments LUCAS AM (test code = 45.1 ug/dL 4.5-23.0 H 5467388933) MIKAYLA (test code = MIKAYLA) Biotin has been reported to cause a positive bias, interpret results relative to patient's use of biotin. Lab Interpretation (test Abnormal code = 40540-8) [facility] [id number] 10:11:30 Test Item Value Reference Range Interpretation Comments LUCAS AM (test code = 45.1 ug/dL 4.5-23.0 H 4239484876) MIKAYLA (test code = MIKAYLA) Biotin has been reported to cause a positive bias, interpret results relative to patient's use of biotin. Lab Interpretation (test Abnormal code = 86600-1) [facility] [id number] 10:11:30 Test Item Value Reference Range Interpretation Comments LUCAS AM (test code = 45.1 ug/dL 4.5-23.0 H 1126326311) MIKAYLA (test code = MIKAYLA) Biotin has been reported to cause a positive bias, interpret results relative to patient's use of biotin. Lab Interpretation (test Abnormal code = 24980-2) [facility] [id number] 10:11:30 Test Item Value Reference Range Interpretation Comments TSH (test code = 6.45 See_Comment H [Automated message] 6546129699) The system [employer] generated this result transmitted ref erence range: 0.45 - 4 .70 mIU/L. The refe rence range was not u sed to interpret this result as normal/abnor mal. Lab Interpretation (test Abnormal code = 83411-2) [facility] [id number] 10:11:30 Test Item Value Reference Range Interpretation Comments LUCAS AM (test code = 45.1 ug/dL 4.5-23.0 H 8712841619) MIKAYLA (test code = MIKAYLA) Biotin has been reported to cause a positive bias, interpret results relative to patient's use of biotin. Lab Interpretation (test Abnormal code = 94318-9) [facility] [id number] 10:11:30 Test Item Value Reference Range Interpretation Comments TSH (test code = 6.45 See_Comment H [Automated message] 7155982450) The system [employer] generated this result transmitted ref erence range: 0.45 - 4 .70 mIU/L. The refe rence range was not u sed to interpret this result as normal/abnor mal. Lab Interpretation (test Abnormal code = 36637-7) [facility] 09:57:28 Test Item Value Reference Range Interpretation Comments FREE T3 (test code = 8152082247) 3.23 pg/mL 2.77-5.27 Lab Interpretation (test code = Normal 31892-8) [facility] 09:57:28 Test Item Value Reference Range Interpretation Comments FREE T3 (test code = 2126187252) 3.23 pg/mL 2.77-5.27 Lab Interpretation (test code = Normal 34506-3) [facility] [id number] 09:48:47 Test Item Value Reference Range Interpretation Comments FREE T4 (test code = 2.18 See_Comment [Autom ated message] 3108807424) The system [employer] generated this result transmitted ref erence range: 0.78 - 2 .20 ng/dL:. The ref erence range was not u sed to interpret this result as normal/abnor mal. Lab Interpretation (test Normal code = 66543-9) [facility] [id number] 09:48:47 Test Item Value Reference Range Interpretation Comments FREE T4 (test code = 2.18 See_Comment [Autom ated message] 1223742691) The system [employer] generated this result transmitted ref erence range: 0.78 - 2 .20 ng/dL:. The ref erence range was not u sed to interpret this result as normal/abnor mal. Lab Interpretation (test Normal code = 71863-1) [facility] 09:44:50 Test Item Value Reference Range Interpretation Comments Procalcitonin (test 4.98 ng/mL <=0.07 H code = 2784260560) MIKAYLA (test code = MIKAYLA) INTERPRETATION OF PROCALCITONIN RESULTS IN ADULTS >= 18 YEARS OF AGE Initiation and discontinuation of antibiotics on patients with suspected or confirmed Lower Respiratory Tract Infection in Adults >= 18 years of age. + +-------- --------+ + -----+|Procalcitonin |Interpretation ?|Antibiotic ? ? |Considerations ? |ng/mL ? | ?|recommendation | ? + +-------- --------+ + -----+| <0.1 ? | Bacterial ? ? ?| Strongly ? ? ?| ? | ?| infection very | discouraged ? | Overruling: ? | ?| unlikely ? ? ? | ? | ? Clinically unstable ? ? ? + +-------- --------+ + ? High risk for adverse ? ? | <0.25 ?| Bacterial ? ? ?| Discouraged ? | ? outcome ? | ?| infection ? ? ?| ? | ? SEE IMPORTANT NOTE ?| ?| unlikely ? ? ? | ? | ? + +-------- --------+ + -----+| >=0.25 ? ? ? | Bacterial ? ? ?| Encouraged ? ?| ? | ?| infection ? ? ?| ? | ? | ?| likely ? | ? | Consider treatment failure ?+ +------- ---------+ -+ if levels does not decrease | >0.5 ? | Bacterial ? ? ?| Strongly ? ? ?| appropriately ? | ?| infection very | encouraged ? ?| ? | ?| likely ? | ? | ? + +-------- --------+ + -----+ Discontinuation of antibiotics in high-acuity patients with suspected or confirmed sepsis in Adults >= 18 years of age. + +-------- --------+ + -----+|Procalcitonin |Interpretation ?|Antibiotic ? ? |Considerations ? |ng/mL ? | ?|recommendation | ? + +-------- --------+ + -----+| <0.25 ?| Bacterial ? ? ?| Strongly ? ? ?| ? | ?| infection very | discouraged ? | Overruling: ? | ?| unlikely ? ? ? | ? | ? Clinically unstable ? ? ? + +-------- --------+ + ? High risk for adverse ? ? | <0.5 or drop | Bacterial ? ? ?| Discouraged ? | ? outcome ? | >80% from ? ?| infection ? ? ?| ? | ? SEE IMPORTANT NOTE ?| highest PCT ?| unlikely ? ? ? | ? | ? | level ?| ?| ? | ? + +-------- --------+ + -----+| >=0.5 ?| Bacterial ? ? ?| Encouraged ? ?| ? | ?| infection ? ? ?| ? | ? | ?| likely ? | ? | Consider treatment failure ?+ +------- ---------+ -+ if levels does not decrease | >1.0 ? | Bacterial ? ? ?| Strongly ? ? ?| appropriately ? | ?| infection very | encouraged ? ?| ? | ?| likely ? | ? | ? + +-------- --------+ + -----+ Percentage of drop of Procalcitonin calculation for Discontinuation of antibiotics in high-acuity patients with suspected or confirmed sepsis in Adults >= 18 years of age. ? Procalcitonin highest{}-Procalcitonin current{}Delta Procalcitonin = x100% ? Procalcitonin current {} IMPORTANT NOTE: Procalcitonin may be elevated without bacterial infection by physiologic stress related to trauma, bazzi, chronic dialysis, metastatic cancer, surgery in the past seven days, malaria, some fungal infections, and some forms of vasculitis. The interpretation algorithm may not apply to patients with immunosuppression (equivalent of >10 mg of prednisone daily), HIV with CD4 cell count < 350 cells/mm3, active malignancy on systemic chemotherapy, solid organ transplant or hematopoietic stem cell transplantation, or hospital acquired pneumonia. Additionally, some clinical trials of procalcitonin have excluded patients with shock requiring vasopressor use, acute respiratory failure requiring mechanical ventilation, or those with known lung abscess/empyema. For further information please refer to:[email or web address] Lab Interpretation Abnormal (test code = 35307-8) [facility] 09:44:50 Test Item Value Reference Range Interpretation Comments Procalcitonin (test 4.98 ng/mL <=0.07 H code = 9197773387) MIKAYLA (test code = MIKAYLA) INTERPRETATION OF PROCALCITONIN RESULTS IN ADULTS >= 18 YEARS OF AGE Initiation and discontinuation of antibiotics on patients with suspected or confirmed Lower Respiratory Tract Infection in Adults >= 18 years of age. + +-------- --------+ + -----+|Procalcitonin |Interpretation ?|Antibiotic ? ? |Considerations ? |ng/mL ? | ?|recommendation | ? + +-------- --------+ + -----+| <0.1 ? | Bacterial ? ? ?| Strongly ? ? ?| ? | ?| infection very | discouraged ? | Overruling: ? | ?| unlikely ? ? ? | ? | ? Clinically unstable ? ? ? + +-------- --------+ + ? High risk for adverse ? ? | <0.25 ?| Bacterial ? ? ?| Discouraged ? | ? outcome ? | ?| infection ? ? ?| ? | ? SEE IMPORTANT NOTE ?| ?| unlikely ? ? ? | ? | ? + +-------- --------+ + -----+| >=0.25 ? ? ? | Bacterial ? ? ?| Encouraged ? ?| ? | ?| infection ? ? ?| ? | ? | ?| likely ? | ? | Consider treatment failure ?+ +------- ---------+ -+ if levels does not decrease | >0.5 ? | Bacterial ? ? ?| Strongly ? ? ?| appropriately ? | ?| infection very | encouraged ? ?| ? | ?| likely ? | ? | ? + +-------- --------+ + -----+ Discontinuation of antibiotics in high-acuity patients with suspected or confirmed sepsis in Adults >= 18 years of age. + +-------- --------+ + -----+|Procalcitonin |Interpretation ?|Antibiotic ? ? |Considerations ? |ng/mL ? | ?|recommendation | ? + +-------- --------+ + -----+| <0.25 ?| Bacterial ? ? ?| Strongly ? ? ?| ? | ?| infection very | discouraged ? | Overruling: ? | ?| unlikely ? ? ? | ? | ? Clinically unstable ? ? ? + +-------- --------+ + ? High risk for adverse ? ? | <0.5 or drop | Bacterial ? ? ?| Discouraged ? | ? outcome ? | >80% from ? ?| infection ? ? ?| ? | ? SEE IMPORTANT NOTE ?| highest PCT ?| unlikely ? ? ? | ? | ? | level ?| ?| ? | ? + +-------- --------+ + -----+| >=0.5 ?| Bacterial ? ? ?| Encouraged ? ?| ? | ?| infection ? ? ?| ? | ? | ?| likely ? | ? | Consider treatment failure ?+ +------- ---------+ -+ if levels does not decrease | >1.0 ? | Bacterial ? ? ?| Strongly ? ? ?| appropriately ? | ?| infection very | encouraged ? ?| ? | ?| likely ? | ? | ? + +-------- --------+ + -----+ Percentage of drop of Procalcitonin calculation for Discontinuation of antibiotics in high-acuity patients with suspected or confirmed sepsis in Adults >= 18 years of age. ? Procalcitonin highest{}-Procalcitonin current{}Delta Procalcitonin = x100% ? Procalcitonin current {} IMPORTANT NOTE: Procalcitonin may be elevated without bacterial infection by physiologic stress related to trauma, bazzi, chronic dialysis, metastatic cancer, surgery in the past seven days, malaria, some fungal infections, and some forms of vasculitis. The interpretation algorithm may not apply to patients with immunosuppression (equivalent of >10 mg of prednisone daily), HIV with CD4 cell count < 350 cells/mm3, active malignancy on systemic chemotherapy, solid organ transplant or hematopoietic stem cell transplantation, or hospital acquired pneumonia. Additionally, some clinical trials of procalcitonin have excluded patients with shock requiring vasopressor use, acute respiratory failure requiring mechanical ventilation, or those with known lung abscess/empyema. For further information please refer to:[email or web address] Lab Interpretation Abnormal (test code = 45257-3) [facility] WITH [id number] 09:30:24 Test Item Value Reference Range Interpretation Comments WBC (test code = 22.46 See_Comment H [Automated 6690-2) message] The sy stem which generated this result transmitted reference range : 4.20 - 10.70 10*3/?L. The reference range was not used to interpret this result as normal/abnormal . RBC (test code = 2.46 See_Comment L [Automated 789-8) message] The sy stem which generated this result transmitted reference range : 4.26 - 5.52 10*6/?L. The reference range was not used to interpret this result as normal/abnormal . HGB (test code = 7.7 g/dL 12.2-16.4 L 718-7) HCT (test code = 23.3 % 38.4-49.3 L 4544-3) MCV (test code = 94.7 fL 81.7-95.6 787-2) MCH (test code = 31.3 pg 26.1-32.7 785-6) MCHC (test code = 33.0 g/dL 31.2-35.0 786-4) RDW-SD (test code = 61.5 fL 38.5-51.6 H 45514-0) RDW-CV (test code = 21.0 % 12.1-15.4 H 788-0) PLT (test code = 61 See_Comment L [Automated 777-3) message] The sy stem which generated this result transmitted reference range : 150 - 328 10*3/ ?L. The reference r kyra was not used to interpret this result as normal/abnormal . MPV (test code = Not Measure d 61103-0) IPF % (test code = 26.3 % 1.2-10.7 H Platelet count [id number]) measured by fluorescence method. NRBC/100 WBC (test 1.8 See_Comment [Automat ed code = 1986045365) message] The system which generated this result transmitted reference range : 0.0 - 10.0 /100 WBCs. The refer ence range was not u sed to interpret th is result as normal/abnormal . NRBC x10^3 (test code 0.41 See_Comment [Auto mated = 8636883227) message] The s ystem which generated this result transmitted reference range : 10*3/?L. The reference range was not used to interpret this result as normal/abnormal . GRAN MAT (NEUT) % 81.3 % (test code = 770-8) IMM GRAN % (test code 3.30 % = 2379495098) LYMPH % (test code = 10.6 % 736-9) MONO % (test code = 4.3 % 5905-5) EOS % (test code = 0.2 % 713-8) BASO % (test code = 0.3 % 706-2) GRAN MAT x10^3(ANC) 18.27 10*3/uL 1.99-6.95 H (test code = 6402494243) IMM GRAN x10^3 (test 0.75 10*3/uL 0.00-0.06 H code = 5787479664) LYMPH x10^3 (test 2.37 10*3/uL 1.09-3.23 code = 731-0) MONO x10^3 (test code 0.97 10*3/uL 0.36-1.02 = 742-7) EOS x10^3 (test code 0.04 10*3/uL 0.06-0.53 L = 711-2) BASO x10^3 (test code 0.06 10*3/uL 0.01-0.09 = 704-7) BRADLEY CELLS (test code 2+ See_Comment A [Auto mated = 7790-9) message] The sy stem which generated this result transmitted reference range : (none). The reference range was not used to interpret this result as normal/abnormal . POLYCHROMASIA (test 2+ See_Comment [Automa che code = 85353-6) message] The system which generated this result transmitted reference range : 2+. The referen ce range was not u sed to interpret th is result as normal/abnormal . Lab Interpretation Abnormal (test code = 23554-9) [facility] WITH [id number] 09:30:24 Test Item Value Reference Range Interpretation Comments WBC (test code = 22.46 See_Comment H [Automated 6690-2) message] The sy stem which generated this result transmitted reference range : 4.20 - 10.70 10*3/?L. The reference range was not used to interpret this result as normal/abnormal . RBC (test code = 2.46 See_Comment L [Automated 789-8) message] The sy stem which generated this result transmitted reference range : 4.26 - 5.52 10*6/?L. The reference range was not used to interpret this result as normal/abnormal . HGB (test code = 7.7 g/dL 12.2-16.4 L 718-7) HCT (test code = 23.3 % 38.4-49.3 L 4544-3) MCV (test code = 94.7 fL 81.7-95.6 787-2) MCH (test code = 31.3 pg 26.1-32.7 785-6) MCHC (test code = 33.0 g/dL 31.2-35.0 786-4) RDW-SD (test code = 61.5 fL 38.5-51.6 H 62081-7) RDW-CV (test code = 21.0 % 12.1-15.4 H 788-0) PLT (test code = 61 See_Comment L [Automated 777-3) message] The sy stem which generated this result transmitted reference range : 150 - 328 10*3/ ?L. The reference r kyra was not used to interpret this result as normal/abnormal . MPV (test code = Not Measure d 60688-4) IPF % (test code = 26.3 % 1.2-10.7 H Platelet count 6548036396) measured by fluorescence method. NRBC/100 WBC (test 1.8 See_Comment [Automat ed code = 7936267350) message] The system which generated this result transmitted reference range : 0.0 - 10.0 /100 WBCs. The refer ence range was not u sed to interpret th is result as normal/abnormal . NRBC x10^3 (test code 0.41 See_Comment [Auto mated = 8115720308) message] The s ystem which generated this result transmitted reference range : 10*3/?L. The reference range was not used to interpret this result as normal/abnormal . GRAN MAT (NEUT) % 81.3 % (test code = 770-8) IMM GRAN % (test code 3.30 % = 3630426137) LYMPH % (test code = 10.6 % 736-9) MONO % (test code = 4.3 % 5905-5) EOS % (test code = 0.2 % 713-8) BASO % (test code = 0.3 % 706-2) GRAN MAT x10^3(ANC) 18.27 10*3/uL 1.99-6.95 H (test code = 0886853316) IMM GRAN x10^3 (test 0.75 10*3/uL 0.00-0.06 H code = 9416454686) LYMPH x10^3 (test 2.37 10*3/uL 1.09-3.23 code = 731-0) MONO x10^3 (test code 0.97 10*3/uL 0.36-1.02 = 742-7) EOS x10^3 (test code 0.04 10*3/uL 0.06-0.53 L = 711-2) BASO x10^3 (test code 0.06 10*3/uL 0.01-0.09 = 704-7) BRADLEY CELLS (test code 2+ See_Comment A [Auto mated = 7790-9) message] The sy stem which generated this result transmitted reference range : (none). The reference range was not used to interpret this result as normal/abnormal . POLYCHROMASIA (test 2+ See_Comment [Automa che code = 42775-4) message] The system which generated this result transmitted reference range : 2+. The referen ce range was not u sed to interpret th is result as normal/abnormal . Lab Interpretation Abnormal (test code = 55487-1) [facility] GLUCOSE (AUTOMATED)2023-02-27 09:30:14 Test Item Value Reference Range Interpretation Comments POCT GLU (test code = 3072958218) 214 mg/dL 70-110 H Lab Interpretation (test code = Abnormal 44863-9) [facility] GLUCOSE (AUTOMATED)2023-02-27 09:30:14 Test Item Value Reference Range Interpretation Comments POCT GLU (test code = 5143089048) 214 mg/dL 70-110 H Lab Interpretation (test code = Abnormal 79818-7) [facility] Test Item Value Reference Range Interpretation Comments DIGOXIN (test code = 0.7 ng/mL 0.8-1.6 L 5100015010) MIKAYLA (test code = MIKAYLA) Arrythmias: ?1.5 - 2.0 ng/mLToxic Range: ? Greater than or equal to 2.4 ng/mL Lab Interpretation (test Abnormal code = 13952-1) [facility]2023-06-28 09:29:03 Test Item Value Reference Range Interpretation Comments DIGOXIN (test code = 0.7 ng/mL 0.8-1.6 L 4138727572) MIKAYLA (test code = MIKAYLA) Arrythmias: ?1.5 - 2.0 ng/mLToxic Range: ? Greater than or equal to 2.4 ng/mL Lab Interpretation (test Abnormal code = 08494-5) [facility]05 Test Item Value Reference Range Interpretation Comments PHOSPHORUS (test code = 5191271656) 2.4 mg/dL 2.5-5.0 L Lab Interpretation (test code = Abnormal 99995-6) [facility]05 Test Item Value Reference Range Interpretation Comments PHOSPHORUS (test code = 1770656066) 2.4 mg/dL 2.5-5.0 L Lab Interpretation (test code = Abnormal 21707-0) [facility] (NA, K, CL, CO2, GLUCOSE, BUN, CREATININE, CA)2023-02-27 09:25:04 Test Item Value Reference Range Interpretation Comments NA (test code = 138 mmol/L 135-145 1244283786) K (test code = 3.3 mmol/L 3.5-5.0 L 4937093904) CL (test code = 108 mmol/L 98-108 3569723238) CO2 TOTAL (test code = 19 mmol/L 23-31 L 8297692512) AGAP (test code = 11 2-16 0095509535) BUN (test code = 38 mg/dL 7-23 H 6788231902) GLUCOSE (test code = 251 mg/dL 70-110 H 1553550033) CREATININE (test code = 1.91 mg/dL 0.60-1.25 H 2509368622) CALCIUM (test code = 6.6 mg/dL 8.6-10.6 L 0196006510) eGFR (test code = 36.0 mL/min/1.73m2 7984561456) MIKAYLA (test code = MIKAYLA) Association of Glomerular Filtration Rate (GFR) and Staging of Kidney Disease* + --+ --+ ------+| GFR (mL/min/1.73 m2) ?| With Kidney Damage ?| ?Without Kidney Damage+ --------+ --------+ +| ?>90 ?| ?Stage one ?| ? Normal ?+ ---+ ---+ -------+| ?60-89 ?| ?Stage two ?| ? Decreased GFR ? + --+ --+ ------+| ?30-59 ?| ?Stage three ?| ? Stage three ? + --+ --+ ------+| ?15-29 ?| ?Stage four ? | ? Stage four ?+ ---+ ---+ -------+| ?<15 (or dialysis) ? ?| ?Stage five ? | ? Stage five ?+ ---+ ---+ -------+ *Each stage assumes the associated GFR level has been in effect for at least three months. ?Stages 1 to 5, with or without kidney disease, indicate chronic kidney disease. Notes: Determination of stages one and two (with eGFR >59mL/min/1.73 m2) requires estimation of kidney damage for at least three months as defined by structural or functional abnormalities of the kidney, manifested by either:Pathological abnormalities or Markers of kidney damage (including abnormalities in the composition of the blood or urine or abnormalities in imaging tests). Lab Interpretation Abnormal (test code = 26995-6) [facility] Test Item Value Reference Range Interpretation Comments MAGNESIUM (test code = 3989203796) 2.4 mg/dL 1.7-2.4 Lab Interpretation (test code = Normal 35963-3) [facility] (ALB,T.PRO,BILI T,BU/BC,ALT,AST,ALK PHOS)2023-02-27 09:25:04 Test Item Value Reference Range Interpretation Comments TOTAL BILI (test code = 7403102398) 2.0 mg/dL 0.1-1.1 H BILI UNCON (test code = 3159507298) 0.6 mg/dL 0.1-1.1 BILI CONJ (test code = 3319482382) 0.3 mg/dL 0.0-0.3 T PROTEIN (test code = 3637087764) 5.5 g/dL 6.3-8.2 L ALBUMIN (test code = 7608426404) 2.3 g/dL 3.5-5.0 L ALK PHOS (test code = 3184701998) 129 U/L 34-122 H ALTv (test code = 1742-6) 318 U/L 5-50 H AST(SGOT) (test code = 6339221152) 347 U/L 13-40 H Lab Interpretation (test code = Abnormal 00243-2) [facility] (NA, K, CL, CO2, GLUCOSE, BUN, CREATININE, CA)2023-02-27 09:25:04 Test Item Value Reference Range Interpretation Comments NA (test code = 138 mmol/L 135-145 3026738791) K (test code = 3.3 mmol/L 3.5-5.0 L 6235111358) CL (test code = 108 mmol/L 98-108 6546251757) CO2 TOTAL (test code = 19 mmol/L 23-31 L 3191460756) AGAP (test code = 11 2-16 7580883180) BUN (test code = 38 mg/dL 7-23 H 1452236006) GLUCOSE (test code = 251 mg/dL 70-110 H 5905033818) CREATININE (test code = 1.91 mg/dL 0.60-1.25 H 1681234523) CALCIUM (test code = 6.6 mg/dL 8.6-10.6 L 2730185738) eGFR (test code = 36.0 mL/min/1.73m2 3179119257) MIKAYLA (test code = MIKAYLA) Association of Glomerular Filtration Rate (GFR) and Staging of Kidney Disease* + --+ --+ ------+| GFR (mL/min/1.73 m2) ?| With Kidney Damage ?| ?Without Kidney Damage+ --------+ --------+ +| ?>90 ?| ?Stage one ?| ? Normal ?+ ---+ ---+ -------+| ?60-89 ?| ?Stage two ?| ? Decreased GFR ? + --+ --+ ------+| ?30-59 ?| ?Stage three ?| ? Stage three ? + --+ --+ ------+| ?15-29 ?| ?Stage four ? | ? Stage four ?+ ---+ ---+ -------+| ?<15 (or dialysis) ? ?| ?Stage five ? | ? Stage five ?+ ---+ ---+ -------+ *Each stage assumes the associated GFR level has been in effect for at least three months. ?Stages 1 to 5, with or without kidney disease, indicate chronic kidney disease. Notes: Determination of stages one and two (with eGFR >59mL/min/1.73 m2) requires estimation of kidney damage for at least three months as defined by structural or functional abnormalities of the kidney, manifested by either:Pathological abnormalities or Markers of kidney damage (including abnormalities in the composition of the blood or urine or abnormalities in imaging tests). Lab Interpretation Abnormal (test code = 21116-6) [facility] Test Item Value Reference Range Interpretation Comments MAGNESIUM (test code = 2037607407) 2.4 mg/dL 1.7-2.4 Lab Interpretation (test code = Normal 93111-5) [facility]68702[facility] (ALB,T.PRO,BILI T,BU/BC,ALT,AST,ALK PHOS)2023-02-27 09:25:04 Test Item Value Reference Range Interpretation Comments TOTAL BILI (test code = 5337855407) 2.0 mg/dL 0.1-1.1 H BILI UNCON (test code = 7117856499) 0.6 mg/dL 0.1-1.1 BILI CONJ (test code = 1454408503) 0.3 mg/dL 0.0-0.3 T PROTEIN (test code = 7125778452) 5.5 g/dL 6.3-8.2 L ALBUMIN (test code = 8502604553) 2.3 g/dL 3.5-5.0 L ALK PHOS (test code = 0486821258) 129 U/L 34-122 H ALTv (test code = 1742-6) 318 U/L 5-50 H AST(SGOT) (test code = 4601342141) 347 U/L 13-40 H Lab Interpretation (test code = Abnormal 57139-7) [facility] (for use with Heparin Infusion)2023-02-27 08:58:17 Test Item Value Reference Range Interpretation Comments APTT Patient (test code 66 See_Comment H [Au tomated message] = 3173-2) The system [employer] generated this result transmitted ref erence range: 26 - 36 Seconds. The reference range was not used to int erpret this result as normal/abnormal . Lab Interpretation (test Abnormal code = 48293-1) [facility] (for use with Heparin Infusion)2023-02-27 08:58:17 Test Item Value Reference Range Interpretation Comments APTT Patient (test code 66 See_Comment H [Au tomated message] = 3173-2) The system [employer] generated this result transmitted ref erence range: 26 - 36 Seconds. The reference range was not used to int erpret this result as normal/abnormal . Lab Interpretation (test Abnormal code = 42171-3) [facility] GLUCOSE (AUTOMATED)2023-02-27 08:34:41 Test Item Value Reference Range Interpretation Comments POCT GLU (test code = 8377842180) 278 mg/dL 70-110 H Lab Interpretation (test code = Abnormal 24516-9) [facility] GLUCOSE (AUTOMATED)2023-02-27 08:34:41 Test Item Value Reference Range Interpretation Comments POCT GLU (test code = 0514290732) 278 mg/dL 70-110 H Lab Interpretation (test code = Abnormal 18741-6) [facility] GLUCOSE (AUTOMATED)2023-02-27 07:21:52 Test Item Value Reference Range Interpretation Comments POCT GLU (test code = 6240043862) 331 mg/dL 70-110 H Lab Interpretation (test code = Abnormal 80483-6) [facility] GLUCOSE (AUTOMATED)2023-02-27 07:21:52 Test Item Value Reference Range Interpretation Comments POCT GLU (test code = 6188706989) 331 mg/dL 70-110 H Lab Interpretation (test code = Abnormal 62167-5) [facility] GLUCOSE (AUTOMATED)2023-02-27 06:16:49 Test Item Value Reference Range Interpretation Comments POCT GLU (test code = 9319217616) 340 mg/dL 70-110 H Lab Interpretation (test code = Abnormal 54043-0) [facility] GLUCOSE (AUTOMATED)2023-02-27 06:16:49 Test Item Value Reference Range Interpretation Comments POCT GLU (test code = 2087960346) 340 mg/dL 70-110 H Lab Interpretation (test code = Abnormal 76124-2) [facility] GLUCOSE (AUTOMATED)2023-02-27 05:22:38 Test Item Value Reference Range Interpretation Comments POCT GLU (test code = 0185490583) 350 mg/dL 70-110 H Lab Interpretation (test code = Abnormal 12159-5) [facility] GLUCOSE (AUTOMATED)2023-02-27 05:22:38 Test Item Value Reference Range Interpretation Comments POCT GLU (test code = 5395609780) 350 mg/dL 70-110 H Lab Interpretation (test code = Abnormal 31742-0) [facility] GLUCOSE (AUTOMATED)2023-02-27 04:35:55 Test Item Value Reference Range Interpretation Comments POCT GLU (test code = 3427912218) 355 mg/dL 70-110 H Lab Interpretation (test code = Abnormal 38256-2) [facility] GLUCOSE (AUTOMATED)2023-02-27 04:35:55 Test Item Value Reference Range Interpretation Comments POCT GLU (test code = 9998921257) 355 mg/dL 70-110 H Lab Interpretation (test code = Abnormal 58172-0) [facility] GLUCOSE (AUTOMATED)2023-02-27 01:18:12 Test Item Value Reference Range Interpretation Comments POCT GLU (test code = 0214108379) 319 mg/dL 70-110 H Lab Interpretation (test code = Abnormal 87021-6) [facility] GLUCOSE (AUTOMATED)2023-02-27 01:18:12 Test Item Value Reference Range Interpretation Comments POCT GLU (test code = 0560835481) 319 mg/dL 70-110 H Lab Interpretation (test code = Abnormal 21041-4) [facility] WITH [id number] 21:59:45 Test Item Value Reference Range Interpretation Comments WBC (test code = 22.56 See_Comment H [Automated 6690-2) message] The sy stem which generated this result transmitted reference range : 4.20 - 10.70 10*3/?L. The reference range was not used to interpret this result as normal/abnormal . RBC (test code = 2.51 See_Comment L [Automated 789-8) message] The sy stem which generated this result transmitted reference range : 4.26 - 5.52 10*6/?L. The reference range was not used to interpret this result as normal/abnormal . HGB (test code = 8.0 g/dL 12.2-16.4 L 718-7) HCT (test code = 23.8 % 38.4-49.3 L 4544-3) MCV (test code = 94.8 fL 81.7-95.6 787-2) MCH (test code = 31.9 pg 26.1-32.7 785-6) MCHC (test code = 33.6 g/dL 31.2-35.0 786-4) RDW-SD (test code = 59.6 fL 38.5-51.6 H 01548-9) RDW-CV (test code = 21.0 % 12.1-15.4 H 788-0) PLT (test code = 56 See_Comment L [Automated 777-3) message] The sy stem which generated this result transmitted reference range : 150 - 328 10*3/ ?L. The reference r kyra was not used to interpret this result as normal/abnormal . MPV (test code = Not Measure d 83544-8) IPF % (test code = 22.7 % 1.2-10.7 H Platelet count 3051312130) measured by fluorescence method. NRBC/100 WBC (test 1.9 See_Comment [Automat ed code = 8225808315) message] The system which generated this result transmitted reference range : 0.0 - 10.0 /100 WBCs. The refer ence range was not u sed to interpret th is result as normal/abnormal . NRBC x10^3 (test code 0.42 See_Comment [Auto mated = 6886336385) message] The s ystem which generated this result transmitted reference range : 10*3/?L. The reference range was not used to interpret this result as normal/abnormal . GRAN MAT (NEUT) % 83.7 % (test code = 770-8) IMM GRAN % (test code 4.10 % = 1159092247) LYMPH % (test code = 5.5 % 736-9) MONO % (test code = 6.5 % 5905-5) EOS % (test code = 0.0 % 713-8) BASO % (test code = 0.2 % 706-2) GRAN MAT x10^3(ANC) 18.86 10*3/uL 1.99-6.95 H (test code = 0093976871) IMM GRAN x10^3 (test 0.93 10*3/uL 0.00-0.06 H code = 0327570255) LYMPH x10^3 (test 1.25 10*3/uL 1.09-3.23 code = 731-0) MONO x10^3 (test code 1.47 10*3/uL 0.36-1.02 H = 742-7) EOS x10^3 (test code 0.06-0.53 L = 711-2) BASO x10^3 (test code 0.04 10*3/uL 0.01-0.09 = 704-7) BRADLEY CELLS (test code 2+ See_Comment A [Auto mated = 8690-9) message] The sy stem which generated this result transmitted reference range : (none). The reference range was not used to interpret this result as normal/abnormal . POLYCHROMASIA (test 2+ See_Comment [Automa che code = 84221-2) message] The system which generated this result transmitted reference range : 2+. The referen ce range was not u sed to interpret th is result as normal/abnormal . BANDS (test code = Increased A 7385251275) Lab Interpretation Abnormal (test code = 66135-3) [facility] WITH [id number] 21:59:45 Test Item Value Reference Range Interpretation Comments WBC (test code = 22.56 See_Comment H [Automated 6690-2) message] The sy stem which generated this result transmitted reference range : 4.20 - 10.70 10*3/?L. The reference range was not used to interpret this result as normal/abnormal . RBC (test code = 2.51 See_Comment L [Automated 789-8) message] The sy stem which generated this result transmitted reference range : 4.26 - 5.52 10*6/?L. The reference range was not used to interpret this result as normal/abnormal . HGB (test code = 8.0 g/dL 12.2-16.4 L 718-7) HCT (test code = 23.8 % 38.4-49.3 L 4544-3) MCV (test code = 94.8 fL 81.7-95.6 787-2) MCH (test code = 31.9 pg 26.1-32.7 785-6) MCHC (test code = 33.6 g/dL 31.2-35.0 786-4) RDW-SD (test code = 59.6 fL 38.5-51.6 H 03061-8) RDW-CV (test code = 21.0 % 12.1-15.4 H 788-0) PLT (test code = 56 See_Comment L [Automated 777-3) message] The sy stem which generated this result transmitted reference range : 150 - 328 10*3/ ?L. The reference r kyra was not used to interpret this result as normal/abnormal . MPV (test code = Not Measure d 42663-8) IPF % (test code = 22.7 % 1.2-10.7 H Platelet count 2736109319) measured by fluorescence method. NRBC/100 WBC (test 1.9 See_Comment [Automat ed code = 9210821118) message] The system which generated this result transmitted reference range : 0.0 - 10.0 /100 WBCs. The refer ence range was not u sed to interpret th is result as normal/abnormal . NRBC x10^3 (test code 0.42 See_Comment [Auto mated = 9137110728) message] The s ystem which generated this result transmitted reference range : 10*3/?L. The reference range was not used to interpret this result as normal/abnormal . GRAN MAT (NEUT) % 83.7 % (test code = 770-8) IMM GRAN % (test code 4.10 % = 1634346437) LYMPH % (test code = 5.5 % 736-9) MONO % (test code = 6.5 % 5905-5) EOS % (test code = 0.0 % 713-8) BASO % (test code = 0.2 % 706-2) GRAN MAT x10^3(ANC) 18.86 10*3/uL 1.99-6.95 H (test code = 9266784650) IMM GRAN x10^3 (test 0.93 10*3/uL 0.00-0.06 H code = 3335613693) LYMPH x10^3 (test 1.25 10*3/uL 1.09-3.23 code = 731-0) MONO x10^3 (test code 1.47 10*3/uL 0.36-1.02 H = 742-7) EOS x10^3 (test code 0.06-0.53 L = 711-2) BASO x10^3 (test code 0.04 10*3/uL 0.01-0.09 = 704-7) BRADLEY CELLS (test code 2+ See_Comment A [Auto mated = 7790-9) message] The sy stem which generated this result transmitted reference range : (none). The reference range was not used to interpret this result as normal/abnormal . POLYCHROMASIA (test 2+ See_Comment [Automa che code = 65287-3) message] The system which generated this result transmitted reference range : 2+. The referen ce range was not u sed to interpret th is result as normal/abnormal . BANDS (test code = Increased A 1983326898) Lab Interpretation Abnormal (test code = 12276-6) [facility] Lactic [id number] 21:29:28 Test Item Value Reference Range Interpretation Comments PH (test code = 2) 7.41 7.35-7.45 PCO2 (test code = 32 See_Comment L [Automate d 2502657008) message] The sy stem which generated this result transmitted reference range : 35 - 45 mmHg. The reference range was not used to interpret this result as normal/abnormal . PO2 (test code = 122 See_Comment H [Automated 0287838338) message] The sy stem which generated this result transmitted reference range : 80 - 100 mmHg. The reference range was not used to interpret this result as normal/abnormal . HCO3 (test code = 20 See_Comment L [Automate d 3934462076) message] The sy stem which generated this result transmitted reference range : 22 - 26 mEq/L. The reference range was not used to interpret this result as normal/abnormal . BE (test code = -4.5 See_Comment L [Automated 2939375328) message] The sy stem which generated this result transmitted reference range : -3.0 - 3.0 mEq/ L. The reference r kyra was not used to interpret this result as normal/abnormal . THB (test code = 5.8 g/dL 13.5-18.0 LL 1821664268) %O2HB (test code = 97.4 % 94.0-99.0 6724485683) %COHB ART (test code = 1.1 % 0.0-1.5 0106102481) %METHB ART (test code = 0.2 % 0.4-1.5 L 3420228380) VOL%O2 ART (test code = 8.2 % 15.0-23.0 L 2192469206) NA (test code = 135 mmol/L 135-145 0843926785) K+ (test code = 4.3 mmol/L 3.5-5.0 5642031923) AC CA IONZ (test code = 4.10 mg/dL 4.50-5.30 L 1895732574) GLUCOSE (test code = 283 mg/dL 70-110 H 1840259832) LACTIC ACID (test code 1.90 mmol/L 0.50-2.20 = 9780054548) Lab Interpretation Abnormal (test code = 35923-5) [facility] Lactic [id number] 21:29:28 Test Item Value Reference Range Interpretation Comments PH (test code = 2) 7.41 7.35-7.45 PCO2 (test code = 32 See_Comment L [Automate d 0077256998) message] The sy stem which generated this result transmitted reference range : 35 - 45 mmHg. The reference range was not used to interpret this result as normal/abnormal . PO2 (test code = 122 See_Comment H [Automated 2756911897) message] The sy stem which generated this result transmitted reference range : 80 - 100 mmHg. The reference range was not used to interpret this result as normal/abnormal . HCO3 (test code = 20 See_Comment L [Automate d 4640478099) message] The sy stem which generated this result transmitted reference range : 22 - 26 mEq/L. The reference range was not used to interpret this result as normal/abnormal . BE (test code = -4.5 See_Comment L [Automated 7026035514) message] The sy stem which generated this result transmitted reference range : -3.0 - 3.0 mEq/ L. The reference r kyra was not used to interpret this result as normal/abnormal . THB (test code = 5.8 g/dL 13.5-18.0 LL 3172091190) %O2HB (test code = 97.4 % 94.0-99.0 9685648778) %COHB ART (test code = 1.1 % 0.0-1.5 2628452599) %METHB ART (test code = 0.2 % 0.4-1.5 L 8041153554) VOL%O2 ART (test code = 8.2 % 15.0-23.0 L 8775099565) NA (test code = 135 mmol/L 135-145 0557312896) K+ (test code = 4.3 mmol/L 3.5-5.0 9903900878) AC CA IONZ (test code = 4.10 mg/dL 4.50-5.30 L 2198197312) GLUCOSE (test code = 283 mg/dL 70-110 H 8305418769) LACTIC ACID (test code 1.90 mmol/L 0.50-2.20 = 2741375114) Lab Interpretation Abnormal (test code = 63176-2) [facility]26 21:29:18 Test Item Value Reference Range Interpretation Comments APTT Patient (test code 58 See_Comment H [Au tomated message] = 3173-2) The system whic h generated this result transmitted ref erence range: 26 - 36 Seconds. The reference range was not used to int erpret this result as normal/abnormal . Lab Interpretation (test Abnormal code = 14449-1) [facility]2023-02-26 21:29:18 Test Item Value Reference Range Interpretation Comments APTT Patient (test code 58 See_Comment H [Au tomated message] = 3173-2) The system [employer] generated this result transmitted ref erence range: 26 - 36 Seconds. The reference range was not used to int erpret this result as normal/abnormal . Lab Interpretation (test Abnormal code = 78790-8) [facility] GLUCOSE (AUTOMATED)2023-02-26 21:13:49 Test Item Value Reference Range Interpretation Comments POCT GLU (test code = 0091537164) 294 mg/dL 70-110 H Lab Interpretation (test code = Abnormal 70329-0) [facility] GLUCOSE (AUTOMATED)2023-02-26 21:13:49 Test Item Value Reference Range Interpretation Comments POCT GLU (test code = 0522259127) 294 mg/dL 70-110 H Lab Interpretation (test code = Abnormal 50617-3) [facility] GLUCOSE (AUTOMATED)2023-02-26 16:31:02 Test Item Value Reference Range Interpretation Comments POCT GLU (test code = 7447977638) 226 mg/dL 70-110 H Lab Interpretation (test code = Abnormal 42541-2) [facility] GLUCOSE (AUTOMATED)2023-02-26 16:31:02 Test Item Value Reference Range Interpretation Comments POCT GLU (test code = 6095464627) 226 mg/dL 70-110 H Lab Interpretation (test code = Abnormal 04973-3) [facility] 16:27:40 Test Item Value Reference Range Interpretation Comments LIPASE (test code = 6374028597) 263 U/L 0-220 H Lab Interpretation (test code = Abnormal 67382-5) [facility] 16:27:40 Test Item Value Reference Range Interpretation Comments LIPASE (test code = 7316591066) 263 U/L 0-220 H Lab Interpretation (test code = Abnormal 14885-8) [facility] 16:27:40 Test Item Value Reference Range Interpretation Comments LIPASE (test code = 2757550043) 263 U/L 0-220 H Lab Interpretation (test code = Abnormal 07721-9) [facility] 16:27:40 Test Item Value Reference Range Interpretation Comments LIPASE (test code = 9140737171) 263 U/L 0-220 H Lab Interpretation (test code = Abnormal 05200-5) [facility] (03968)(TOTAL CHOLESTEROL, TRIGLYCERIDES, HDL)2023-02-26 15:22:56 Test Item Value Reference Range Interpretation Comments CHOL (test code = 120-200 L 3043675780) HDL (test code = 7 mg/dL >=40 L 1976828384) HDLC RATIO (test code = Unab le to calculate 2989707360) because, either CHOLESTEROL, HD L or both are less t peterson the sensitivity of the analyzer. TRIG (test code = 47 mg/dL 30-170 2558184725) LDL CHOL (test code = Unable to calculate 31680-3) because, either CHOLESTEROL, HD L or both are less t peterson the sensitivity of the analyzer. VLDL (test code = 9 mg/dL 5-60 9924905430) Lab Interpretation (test Abnormal code = 82139-2) [facility] (22207)(TOTAL CHOLESTEROL, TRIGLYCERIDES, HDL)2023-02-26 15:22:56 Test Item Value Reference Range Interpretation Comments CHOL (test code = 120-200 L 6291083753) HDL (test code = 7 mg/dL >=40 L 7635450562) HDLC RATIO (test code = Unab le to calculate 0625482641) because, either CHOLESTEROL, HD L or both are less t peterson the sensitivity of the analyzer. TRIG (test code = 47 mg/dL 30-170 6493559417) LDL CHOL (test code = Unable to calculate 32894-0) because, either CHOLESTEROL, HD L or both are less t peterson the sensitivity of the analyzer. VLDL (test code = 9 mg/dL 5-60 2041506932) Lab Interpretation (test Abnormal code = 16171-9) [facility]38595[facility]TOTAL CHOLESTEROL, TRIGLYCERIDES, HDL)2023-02-26 15:22:56 Test Item Value Reference Range Interpretation Comments CHOL (test code = 120-200 L 7188855372) HDL (test code = 7 mg/dL >=40 L 7115207489) HDLC RATIO (test code = Unab le to calculate 6748228702) because, either CHOLESTEROL, HD L or both are less t peterson the sensitivity of the analyzer. TRIG (test code = 47 mg/dL 30-170 4501130073) LDL CHOL (test code = Unable to calculate 68403-5) because, either CHOLESTEROL, HD L or both are less t peterson the sensitivity of the analyzer. VLDL (test code = 9 mg/dL 5-60 2739097065) Lab Interpretation (test Abnormal code = 96770-5) [facility] (72749)(TOTAL CHOLESTEROL, TRIGLYCERIDES, HDL)2023-02-26 15:22:56 Test Item Value Reference Range Interpretation Comments CHOL (test code = 120-200 L 8989244655) HDL (test code = 7 mg/dL >=40 L 8347277754) HDLC RATIO (test code = Unab le to calculate 8793214992) because, either CHOLESTEROL, HD L or both are less t peterson the sensitivity of the analyzer. TRIG (test code = 47 mg/dL 30-170 9669484473) LDL CHOL (test code = Unable to calculate 66827-8) because, either CHOLESTEROL, HD L or both are less t peterson the sensitivity of the analyzer. VLDL (test code = 9 mg/dL 5-60 0367297491) Lab Interpretation (test Abnormal code = 34379-5) [facility] GLUCOSE (AUTOMATED)2023-02-26 14:46:34 Test Item Value Reference Range Interpretation Comments POCT GLU (test code = 2962727941) 152 mg/dL 70-110 H Lab Interpretation (test code = Abnormal 98658-8) [facility] GLUCOSE (AUTOMATED)2023-02-26 14:46:34 Test Item Value Reference Range Interpretation Comments POCT GLU (test code = 2047070588) 152 mg/dL 70-110 H Lab Interpretation (test code = Abnormal 95587-0) [facility] GLUCOSE (AUTOMATED)2023-02-26 13:29:31 Test Item Value Reference Range Interpretation Comments POCT GLU (test code = 6262347339) 128 mg/dL 70-110 H Lab Interpretation (test code = Abnormal 62551-5) [facility]23-[facility]-26 13:29:31 Test Item Value Reference Range Interpretation Comments POCT GLU (test code = 9771216942) 128 mg/dL 70-110 H Lab Interpretation (test code = Abnormal 36970-5) [facility] Units 2023-02-26 12:56:29 Test Item Value Reference Range Interpretation Comments Cross Match Result Compatible (test code = 4409) ISBT Blood Type Code 5100 (test code = 891108) Unit Blood Type (test O Pos code = 4410) Unit Number (test [id number] code = 4411) Blood Expiration Date & Time (test code = 677011) Status Information Issued (test code = 4412) Product Red Blood Cells Identification (test code = 4413) Product Code (test [id number] Performed at [facility] code = 4414) Laboratory Services [facility] Blood [address] [place] [id number] Free: [phone] A No. [id number] [facility] Packed RBC (in units), 1 Units 2023-02-26 12:56:29 Test Item Value Reference Range Interpretation Comments Cross Match Result Compatible (test code = 4409) ISBT Blood Type Code 5100 (test code = 548923) Unit Blood Type (test O Pos code = 4410) Unit Number (test [id number] code = 4411) Blood Expiration Date [id number] & Time (test code = 595495) Status Information Issued (test code = 4412) Product Red Blood Cells Identification (test code = 4413) Product Code (test [id number] Performed at [facility] code = 4414) Laboratory Services [facility] Blood [address] [place] [address]Ixfc Free: [phone] A No. [id number] [facility] [id number] 12:48:52 Test Item Value Reference Range Interpretation Comments LUCAS AM (test code = 73.9 ug/dL 4.5-23.0 H 2002100392) MIKAYLA (test code = MIKAYLA) Biotin has been reported to cause a positive bias, interpret results relative to patient's use of biotin. Lab Interpretation (test Abnormal code = 88405-8) [facility] [id number] 12:48:52 Test Item Value Reference Range Interpretation Comments LUCAS AM (test code = 73.9 ug/dL 4.5-23.0 H 5276370501) MIKAYLA (test code = MIKAYLA) Biotin has been reported to cause a positive bias, interpret results relative to patient's use of biotin. Lab Interpretation (test Abnormal code = 74062-3) [facility] GLUCOSE (AUTOMATED)2023-02-26 12:27:59 Test Item Value Reference Range Interpretation Comments POCT GLU (test code = 4845456368) 141 mg/dL 70-110 H Lab Interpretation (test code = Abnormal 12512-1) [facility] GLUCOSE (AUTOMATED)2023-02-26 12:27:59 Test Item Value Reference Range Interpretation Comments POCT GLU (test code = 5804706925) 141 mg/dL 70-110 H Lab Interpretation (test code = Abnormal 17947-4) [facility] (for use with Heparin Infusion)2023-02-26 11:59:01 Test Item Value Reference Range Interpretation Comments APTT Patient (test code 53 See_Comment H [Au tomated message] = 3173-2) The system [employer] generated this result transmitted ref erence range: 26 - 36 Seconds. The reference range was not used to int erpret this result as normal/abnormal . Lab Interpretation (test Abnormal code = 79946-2) [facility] (for use with Heparin Infusion)2023-02-26 11:59:01 Test Item Value Reference Range Interpretation Comments APTT Patient (test code 53 See_Comment H [Au tomated message] = 3173-2) The system [employer] generated this result transmitted ref erence range: 26 - 36 Seconds. The reference range was not used to int erpret this result as normal/abnormal . Lab Interpretation (test Abnormal code = 67567-6) [facility] ONCE [id number] 11:47:00 Test Item Value Reference Range Interpretation Comments ABO & RH (test code = 20) O POSITIVE IAT (test code = 1185) Negative [facility] [id number] 11:47:00 Test Item Value Reference Range Interpretation Comments ABO & RH (test code = 20) O POSITIVE IAT (test code = 1185) Negative [facility] [id number] 11:37:17 Test Item Value Reference Range Interpretation Comments TSH (test code = 5.65 See_Comment H [Automated message] 0182239856) The system [employer] generated this result transmitted ref erence range: 0.45 - 4 .70 mIU/L. The refe rence range was not u sed to interpret this result as normal/abnor mal. Lab Interpretation (test Abnormal code = 94556-1) [facility] [id number] 11:37:17 Test Item Value Reference Range Interpretation Comments TSH (test code = 5.65 See_Comment H [Automated message] 2561339200) The system [employer] generated this result transmitted ref erence range: 0.45 - 4 .70 mIU/L. The refe rence range was not u sed to interpret this result as normal/abnor mal. Lab Interpretation (test Abnormal code = 15495-0) [facility] GLUCOSE (AUTOMATED)2023-02-26 11:36:27 Test Item Value Reference Range Interpretation Comments POCT GLU (test code = 2478055520) 162 mg/dL 70-110 H Lab Interpretation (test code = Abnormal 95557-4) [facility] GLUCOSE (AUTOMATED)2023-02-26 11:36:27 Test Item Value Reference Range Interpretation Comments POCT GLU (test code = 5825083544) 162 mg/dL 70-110 H Lab Interpretation (test code = Abnormal 76956-2) [facility] acute hospital [id number] 11:23:38 Test Item Value Reference Range Interpretation Comments FREE T4 (test code = 2.04 See_Comment [Autom ated message] 3916641276) The system [employer] generated this result transmitted ref erence range: 0.78 - 2 .20 ng/dL:. The ref erence range was not u sed to interpret this result as normal/abnor mal. Lab Interpretation (test Normal code = 71152-4) [facility] 11:23:38 Test Item Value Reference Range Interpretation Comments FREE T3 (test code = 6676207973) 3.26 pg/mL 2.77-5.27 Lab Interpretation (test code = Normal 01502-0) [facility] acute hospital [id number] 11:23:38 Test Item Value Reference Range Interpretation Comments FREE T4 (test code = 2.04 See_Comment [Autom ated message] 1527121775) The system [employer] generated this result transmitted ref erence range: 0.78 - 2 .20 ng/dL:. The ref erence range was not u sed to interpret this result as normal/abnor mal. Lab Interpretation (test Normal code = 50435-6) [facility] acute hospital 11:23:38 Test Item Value Reference Range Interpretation Comments FREE T3 (test code = 5206499460) 3.26 pg/mL 2.77-5.27 Lab Interpretation (test code = Normal 08225-8) [facility]36404[facility] (ALB,T.PRO,BILI T,BU/BC,ALT,AST,ALK PHOS)2023-02-26 11:19:29 Test Item Value Reference Range Interpretation Comments TOTAL BILI (test code = 5724770640) 2.5 mg/dL 0.1-1.1 H BILI UNCON (test code = 1925453976) 0.7 mg/dL 0.1-1.1 BILI CONJ (test code = 3377535491) 0.7 mg/dL 0.0-0.3 H T PROTEIN (test code = 1580693534) 5.2 g/dL 6.3-8.2 L ALBUMIN (test code = 5002336850) 2.2 g/dL 3.5-5.0 L ALK PHOS (test code = 9337728887) 148 U/L 34-122 H ALTv (test code = 1742-6) 498 U/L 5-50 H AST(SGOT) (test code = 5218576691) 924 U/L 13-40 H Lab Interpretation (test code = Abnormal 32936-9) [facility] (90216[facility] (ALB,T.PRO,BILI T,BU/BC,ALT,AST,ALK PHOS)2023-02-26 11:19:29 Test Item Value Reference Range Interpretation Comments TOTAL BILI (test code = 8768582590) 2.5 mg/dL 0.1-1.1 H BILI UNCON (test code = 7447064116) 0.7 mg/dL 0.1-1.1 BILI CONJ (test code = 3417279522) 0.7 mg/dL 0.0-0.3 H T PROTEIN (test code = 6189478888) 5.2 g/dL 6.3-8.2 L ALBUMIN (test code = 4497500844) 2.2 g/dL 3.5-5.0 L ALK PHOS (test code = 0235364042) 148 U/L 34-122 H ALTv (test code = 1742-6) 498 U/L 5-50 H AST(SGOT) (test code = 9557734243) 924 U/L 13-40 H Lab Interpretation (test code = Abnormal 80008-2) [facility] (NA, K, CL, CO2, GLUCOSE, BUN, CREATININE, CA)2023-02-26 11:06:18 Test Item Value Reference Range Interpretation Comments NA (test code = 135 mmol/L 135-145 6461395891) K (test code = 3.8 mmol/L 3.5-5.0 8862535400) CL (test code = 107 mmol/L 98-108 0542998478) CO2 TOTAL (test code = 19 mmol/L 23-31 L 6366666254) AGAP (test code = 9 2-16 3663097172) BUN (test code = 32 mg/dL 7-23 H 4981540262) GLUCOSE (test code = 188 mg/dL 70-110 H 4964072468) CREATININE (test code = 1.54 mg/dL 0.60-1.25 H 3524814770) CALCIUM (test code = 6.7 mg/dL 8.6-10.6 L 3698871686) eGFR (test code = 46.2 mL/min/1.73m2 4023636077) MIKAYLA (test code = MIKAYLA) Association of Glomerular Filtration Rate (GFR) and Staging of Kidney Disease* + --+ --+ ------+| GFR (mL/min/1.73 m2) ?| With Kidney Damage ?| ?Without Kidney Damage+ --------+ --------+ +| ?>90 ?| ?Stage one ?| ? Normal ?+ ---+ ---+ -------+| ?60-89 ?| ?Stage two ?| ? Decreased GFR ? + --+ --+ ------+| ?30-59 ?| ?Stage three ?| ? Stage three ? + --+ --+ ------+| ?15-29 ?| ?Stage four ? | ? Stage four ?+ ---+ ---+ -------+| ?<15 (or dialysis) ? ?| ?Stage five ? | ? Stage five ?+ ---+ ---+ -------+ *Each stage assumes the associated GFR level has been in effect for at least three months. ?Stages 1 to 5, with or without kidney disease, indicate chronic kidney disease. Notes: Determination of stages one and two (with eGFR >59mL/min/1.73 m2) requires estimation of kidney damage for at least three months as defined by structural or functional abnormalities of the kidney, manifested by either:Pathological abnormalities or Markers of kidney damage (including abnormalities in the composition of the blood or urine or abnormalities in imaging tests). Lab Interpretation Abnormal (test code = 02967-6) [facility] 11:06:18 Test Item Value Reference Range Interpretation Comments MAGNESIUM (test code = 0094850590) 2.4 mg/dL 1.7-2.4 Lab Interpretation (test code = Normal 93070-6) [facility] 11:06:18 Test Item Value Reference Range Interpretation Comments PHOSPHORUS (test code = 9089341147) 1.9 mg/dL 2.5-5.0 L Lab Interpretation (test code = Abnormal 82424-7) [facility] (NA, K, CL, CO2, GLUCOSE, BUN, CREATININE, CA)2023-02-26 11:06:18 Test Item Value Reference Range Interpretation Comments NA (test code = 135 mmol/L 135-145 5752978434) K (test code = 3.8 mmol/L 3.5-5.0 7063002162) CL (test code = 107 mmol/L 98-108 4001657886) CO2 TOTAL (test code = 19 mmol/L 23-31 L 0580097776) AGAP (test code = 9 2-16 0193066722) BUN (test code = 32 mg/dL 7-23 H 5448077677) GLUCOSE (test code = 188 mg/dL 70-110 H 5950916958) CREATININE (test code = 1.54 mg/dL 0.60-1.25 H 1081364238) CALCIUM (test code = 6.7 mg/dL 8.6-10.6 L 2506736060) eGFR (test code = 46.2 mL/min/1.73m2 1032110229) MIKAYLA (test code = MIKAYLA) Association of Glomerular Filtration Rate (GFR) and Staging of Kidney Disease* + --+ --+ ------+| GFR (mL/min/1.73 m2) ?| With Kidney Damage ?| ?Without Kidney Damage+ --------+ --------+ +| ?>90 ?| ?Stage one ?| ? Normal ?+ ---+ ---+ -------+| ?60-89 ?| ?Stage two ?| ? Decreased GFR ? + --+ --+ ------+| ?30-59 ?| ?Stage three ?| ? Stage three ? + --+ --+ ------+| ?15-29 ?| ?Stage four ? | ? Stage four ?+ ---+ ---+ -------+| ?<15 (or dialysis) ? ?| ?Stage five ? | ? Stage five ?+ ---+ ---+ -------+ *Each stage assumes the associated GFR level has been in effect for at least three months. ?Stages 1 to 5, with or without kidney disease, indicate chronic kidney disease. Notes: Determination of stages one and two (with eGFR >59mL/min/1.73 m2) requires estimation of kidney damage for at least three months as defined by structural or functional abnormalities of the kidney, manifested by either:Pathological abnormalities or Markers of kidney damage (including abnormalities in the composition of the blood or urine or abnormalities in imaging tests). Lab Interpretation Abnormal (test code = 96976-8) [facility] 11:06:18 Test Item Value Reference Range Interpretation Comments MAGNESIUM (test code = 1528645234) 2.4 mg/dL 1.7-2.4 Lab Interpretation (test code = Normal 80138-1) [facility] 11:06:18 Test Item Value Reference Range Interpretation Comments PHOSPHORUS (test code = 3027401716) 1.9 mg/dL 2.5-5.0 L Lab Interpretation (test code = Abnormal 50323-4) [facility] GLUCOSE (AUTOMATED)2023-02-26 10:38:15 Test Item Value Reference Range Interpretation Comments POCT GLU (test code = 2428665049) 184 mg/dL 70-110 H Lab Interpretation (test code = Abnormal 83954-4) [facility] GLUCOSE (AUTOMATED)2023-02-26 10:38:15 Test Item Value Reference Range Interpretation Comments POCT GLU (test code = 2328770051) 184 mg/dL 70-110 H Lab Interpretation (test code = Abnormal 25314-3) [facility]CB WITH [id number] 10:28:15 Test Item Value Reference Range Interpretation Comments WBC (test code = 18.21 See_Comment H [Automated 6690-2) message] The sy stem which generated this result transmitted reference range : 4.20 - 10.70 10*3/?L. The reference range was not used to interpret this result as normal/abnormal . RBC (test code = 2.06 See_Comment L [Automated 789-8) message] The sy stem which generated this result transmitted reference range : 4.26 - 5.52 10*6/?L. The reference range was not used to interpret this result as normal/abnormal . HGB (test code = 6.8 g/dL 12.2-16.4 L 718-7) HCT (test code = 19.9 % 38.4-49.3 L 4544-3) MCV (test code = 96.6 fL 81.7-95.6 H 787-2) MCH (test code = 33.0 pg 26.1-32.7 H 785-6) MCHC (test code = 34.2 g/dL 31.2-35.0 786-4) RDW-SD (test code = 62.0 fL 38.5-51.6 H 55684-9) RDW-CV (test code = 21.5 % 12.1-15.4 H 788-0) PLT (test code = 58 See_Comment L [Automated 777-3) message] The sy stem which generated this result transmitted reference range : 150 - 328 10*3/ ?L. The reference r kyra was not used to interpret this result as normal/abnormal . MPV (test code = Not Measure d 95553-2) IPF % (test code = 21.1 % 1.2-10.7 H Platelet count 5722793570) measured by fluorescence method. NRBC/100 WBC (test 2.2 See_Comment [Automat ed code = 9157062025) message] The system which generated this result transmitted reference range : 0.0 - 10.0 /100 WBCs. The refer ence range was not u sed to interpret th is result as normal/abnormal . NRBC x10^3 (test code 0.40 See_Comment [Auto mated = 9423252433) message] The s ystem which generated this result transmitted reference range : 10*3/?L. The reference range was not used to interpret this result as normal/abnormal . GRAN MAT (NEUT) % 86.7 % (test code = 770-8) IMM GRAN % (test code 3.80 % = 4530329405) LYMPH % (test code = 5.8 % 736-9) MONO % (test code = 3.3 % 5905-5) EOS % (test code = 0.1 % 713-8) BASO % (test code = 0.3 % 706-2) GRAN MAT x10^3(ANC) 15.78 10*3/uL 1.99-6.95 H (test code = 4271333595) IMM GRAN x10^3 (test 0.69 10*3/uL 0.00-0.06 H code = 2469082163) LYMPH x10^3 (test 1.05 10*3/uL 1.09-3.23 L code = 731-0) MONO x10^3 (test code 0.61 10*3/uL 0.36-1.02 = 742-7) EOS x10^3 (test code 0.06-0.53 L = 711-2) BASO x10^3 (test code 0.06 10*3/uL 0.01-0.09 = 704-7) POLYCHROMASIA (test 2+ See_Comment [Automa che code = 33914-0) message] The system which generated this result transmitted reference range : 2+. The referen ce range was not u sed to interpret th is result as normal/abnormal . BANDS (test code = Increased A 2636875585) Lab Interpretation Abnormal (test code = 27288-1) [facility] WITH DEEX0850-60-52 10:28:15 Test Item Value Reference Range Interpretation Comments WBC (test code = 18.21 See_Comment H [Automated 6690-2) message] The sy stem which generated this result transmitted reference range : 4.20 - 10.70 10*3/?L. The reference range was not used to interpret this result as normal/abnormal . RBC (test code = 2.06 See_Comment L [Automated 789-8) message] The sy stem which generated this result transmitted reference range : 4.26 - 5.52 10*6/?L. The reference range was not used to interpret this result as normal/abnormal . HGB (test code = 6.8 g/dL 12.2-16.4 L 718-7) HCT (test code = 19.9 % 38.4-49.3 L 4544-3) MCV (test code = 96.6 fL 81.7-95.6 H 787-2) MCH (test code = 33.0 pg 26.1-32.7 H 785-6) MCHC (test code = 34.2 g/dL 31.2-35.0 786-4) RDW-SD (test code = 62.0 fL 38.5-51.6 H 26726-0) RDW-CV (test code = 21.5 % 12.1-15.4 H 788-0) PLT (test code = 58 See_Comment L [Automated 777-3) message] The sy stem which generated this result transmitted reference range : 150 - 328 10*3/ ?L. The reference r kyra was not used to interpret this result as normal/abnormal . MPV (test code = Not Measure d 80241-0) IPF % (test code = 21.1 % 1.2-10.7 H Platelet count 0823859999) measured by fluorescence method. NRBC/100 WBC (test 2.2 See_Comment [Automat ed code = 8826880093) message] The system which generated this result transmitted reference range : 0.0 - 10.0 /100 WBCs. The refer ence range was not u sed to interpret th is result as normal/abnormal . NRBC x10^3 (test code 0.40 See_Comment [Auto mated = 4755392932) message] The s ystem which generated this result transmitted reference range : 10*3/?L. The reference range was not used to interpret this result as normal/abnormal . GRAN MAT (NEUT) % 86.7 % (test code = 770-8) IMM GRAN % (test code 3.80 % = 3272879285) LYMPH % (test code = 5.8 % 736-9) MONO % (test code = 3.3 % 5905-5) EOS % (test code = 0.1 % 713-8) BASO % (test code = 0.3 % 706-2) GRAN MAT x10^3(ANC) 15.78 10*3/uL 1.99-6.95 H (test code = 1334530963) IMM GRAN x10^3 (test 0.69 10*3/uL 0.00-0.06 H code = 1201114447) LYMPH x10^3 (test 1.05 10*3/uL 1.09-3.23 L code = 731-0) MONO x10^3 (test code 0.61 10*3/uL 0.36-1.02 = 742-7) EOS x10^3 (test code 0.06-0.53 L = 711-2) BASO x10^3 (test code 0.06 10*3/uL 0.01-0.09 = 704-7) POLYCHROMASIA (test 2+ See_Comment [Automa che code = 97962-1) message] The system which generated this result transmitted reference range : 2+. The referen ce range was not u sed to interpret th is result as normal/abnormal . BANDS (test code = Increased A 6861225561) Lab Interpretation Abnormal (test code = 24329-4) [facility] GLUCOSE (AUTOMATED)2023-02-26 09:52:41 Test Item Value Reference Range Interpretation Comments POCT GLU (test code = 4716482308) 211 mg/dL 70-110 H Lab Interpretation (test code = Abnormal 93369-5) [facility] GLUCOSE (AUTOMATED)2023-02-26 09:52:41 Test Item Value Reference Range Interpretation Comments POCT GLU (test code = 8646243802) 211 mg/dL 70-110 H Lab Interpretation (test code = Abnormal 67923-1) [facility] GLUCOSE (AUTOMATED)2023-02-26 08:44:40 Test Item Value Reference Range Interpretation Comments POCT GLU (test code = 4875763498) 273 mg/dL 70-110 H Lab Interpretation (test code = Abnormal 39387-7) [facility] GLUCOSE (AUTOMATED)2023-02-26 08:44:40 Test Item Value Reference Range Interpretation Comments POCT GLU (test code = 6356798308) 273 mg/dL 70-110 H Lab Interpretation (test code = Abnormal 99686-1) [facility] GLUCOSE (AUTOMATED)2023-02-26 07:52:37 Test Item Value Reference Range Interpretation Comments POCT GLU (test code = 2327959371) 292 mg/dL 70-110 H Lab Interpretation (test code = Abnormal 92917-6) [facility] GLUCOSE (AUTOMATED)2023-02-26 07:52:37 Test Item Value Reference Range Interpretation Comments POCT GLU (test code = 3767607937) 292 mg/dL 70-110 H Lab Interpretation (test code = Abnormal 90818-5) [facility] GLUCOSE (AUTOMATED)2023-02-26 06:53:49 Test Item Value Reference Range Interpretation Comments POCT GLU (test code = 9027689430) 292 mg/dL 70-110 H Lab Interpretation (test code = Abnormal 28140-1) [facility] GLUCOSE (AUTOMATED)2023-02-26 06:53:49 Test Item Value Reference Range Interpretation Comments POCT GLU (test code = 5966727316) 292 mg/dL 70-110 H Lab Interpretation (test code = Abnormal 21693-1) [facility] GLUCOSE (AUTOMATED)2023-02-26 05:48:57 Test Item Value Reference Range Interpretation Comments POCT GLU (test code = 0836776482) 293 mg/dL 70-110 H Lab Interpretation (test code = Abnormal 44815-4) [facility] GLUCOSE (AUTOMATED)2023-02-26 05:48:57 Test Item Value Reference Range Interpretation Comments POCT GLU (test code = 6883874445) 293 mg/dL 70-110 H Lab Interpretation (test code = Abnormal 59473-6) [facility] GLUCOSE (AUTOMATED)2023-02-26 04:39:22 Test Item Value Reference Range Interpretation Comments POCT GLU (test code = 5615851483) 322 mg/dL 70-110 H Lab Interpretation (test code = Abnormal 29610-5) [facility] GLUCOSE (AUTOMATED)2023-02-26 04:39:22 Test Item Value Reference Range Interpretation Comments POCT GLU (test code = 1190919232) 322 mg/dL 70-110 H Lab Interpretation (test code = Abnormal 51364-3) [facility] GLUCOSE (AUTOMATED)2023-02-26 03:44:09 Test Item Value Reference Range Interpretation Comments POCT GLU (test code = 3248733745) 313 mg/dL 70-110 H Lab Interpretation (test code = Abnormal 55648-4) [facility] GLUCOSE (AUTOMATED)2023-02-26 03:44:09 Test Item Value Reference Range Interpretation Comments POCT GLU (test code = 5492864537) 313 mg/dL 70-110 H Lab Interpretation (test code = Abnormal 06210-1) [facility] GLUCOSE (AUTOMATED)2023-02-26 01:06:47 Test Item Value Reference Range Interpretation Comments POCT GLU (test code = 7765931471) 325 mg/dL 70-110 H Lab Interpretation (test code = Abnormal 23395-7) [facility] GLUCOSE (AUTOMATED)2023-02-26 01:06:47 Test Item Value Reference Range Interpretation Comments POCT GLU (test code = 5848584703) 325 mg/dL 70-110 H Lab Interpretation (test code = Abnormal 00900-2) [facility] Test Item Value Reference Range Interpretation Comments DIGOXIN (test code = 1.0 ng/mL 0.8-1.6 4014884822) MIKAYLA (test code = MIKAYLA) Arrythmias: ?1.5 - 2.0 ng/mLToxic Range: ? Greater than or equal to 2.4 ng/mL Lab Interpretation (test Normal code = 15078-3) [facility]:14[facility]50 Test Item Value Reference Range Interpretation Comments DIGOXIN (test code = 1.0 ng/mL 0.8-1.6 7572314718) MIKAYLA (test code = MIKAYLA) Arrythmias: ?1.5 - 2.0 ng/mLToxic Range: ? Greater than or equal to 2.4 ng/mL Lab Interpretation (test Normal code = 95356-9) [facility]18 Test Item Value Reference Range Interpretation Comments Procalcitonin (test 6.63 ng/mL <=0.07 H code = 3833924280) MIKAYLA (test code = MIKAYLA) INTERPRETATION OF PROCALCITONIN RESULTS IN ADULTS >= 18 YEARS OF AGE Initiation and discontinuation of antibiotics on patients with suspected or confirmed Lower Respiratory Tract Infection in Adults >= 18 years of age. + +-------- --------+ + -----+|Procalcitonin |Interpretation ?|Antibiotic ? ? |Considerations ? |ng/mL ? | ?|recommendation | ? + +-------- --------+ + -----+| <0.1 ? | Bacterial ? ? ?| Strongly ? ? ?| ? | ?| infection very | discouraged ? | Overruling: ? | ?| unlikely ? ? ? | ? | ? Clinically unstable ? ? ? + +-------- --------+ + ? High risk for adverse ? ? | <0.25 ?| Bacterial ? ? ?| Discouraged ? | ? outcome ? | ?| infection ? ? ?| ? | ? SEE IMPORTANT NOTE ?| ?| unlikely ? ? ? | ? | ? + +-------- --------+ + -----+| >=0.25 ? ? ? | Bacterial ? ? ?| Encouraged ? ?| ? | ?| infection ? ? ?| ? | ? | ?| likely ? | ? | Consider treatment failure ?+ +------- ---------+ -+ if levels does not decrease | >0.5 ? | Bacterial ? ? ?| Strongly ? ? ?| appropriately ? | ?| infection very | encouraged ? ?| ? | ?| likely ? | ? | ? + +-------- --------+ + -----+ Discontinuation of antibiotics in high-acuity patients with suspected or confirmed sepsis in Adults >= 18 years of age. + +-------- --------+ + -----+|Procalcitonin |Interpretation ?|Antibiotic ? ? |Considerations ? |ng/mL ? | ?|recommendation | ? + +-------- --------+ + -----+| <0.25 ?| Bacterial ? ? ?| Strongly ? ? ?| ? | ?| infection very | discouraged ? | Overruling: ? | ?| unlikely ? ? ? | ? | ? Clinically unstable ? ? ? + +-------- --------+ + ? High risk for adverse ? ? | <0.5 or drop | Bacterial ? ? ?| Discouraged ? | ? outcome ? | >80% from ? ?| infection ? ? ?| ? | ? SEE IMPORTANT NOTE ?| highest PCT ?| unlikely ? ? ? | ? | ? | level ?| ?| ? | ? + +-------- --------+ + -----+| >=0.5 ?| Bacterial ? ? ?| Encouraged ? ?| ? | ?| infection ? ? ?| ? | ? | ?| likely ? | ? | Consider treatment failure ?+ +------- ---------+ -+ if levels does not decrease | >1.0 ? | Bacterial ? ? ?| Strongly ? ? ?| appropriately ? | ?| infection very | encouraged ? ?| ? | ?| likely ? | ? | ? + +-------- --------+ + -----+ Percentage of drop of Procalcitonin calculation for Discontinuation of antibiotics in high-acuity patients with suspected or confirmed sepsis in Adults >= 18 years of age. ? Procalcitonin highest{}-Procalcitonin current{}Delta Procalcitonin = x100% ? Procalcitonin current {} IMPORTANT NOTE: Procalcitonin may be elevated without bacterial infection by physiologic stress related to trauma, bazzi, chronic dialysis, metastatic cancer, surgery in the past seven days, malaria, some fungal infections, and some forms of vasculitis. The interpretation algorithm may not apply to patients with immunosuppression (equivalent of >10 mg of prednisone daily), HIV with CD4 cell count < 350 cells/mm3, active malignancy on systemic chemotherapy, solid organ transplant or hematopoietic stem cell transplantation, or hospital acquired pneumonia. Additionally, some clinical trials of procalcitonin have excluded patients with shock requiring vasopressor use, acute respiratory failure requiring mechanical ventilation, or those with known lung abscess/empyema. For further information please refer to:[email or web address] Lab Interpretation Abnormal (test code = 66312-9) [facility]:01[facility]18 Test Item Value Reference Range Interpretation Comments Procalcitonin (test 6.63 ng/mL <=0.07 H code = 4139365198) MIKAYLA (test code = MIKAYLA) INTERPRETATION OF PROCALCITONIN RESULTS IN ADULTS >= 18 YEARS OF AGE Initiation and discontinuation of antibiotics on patients with suspected or confirmed Lower Respiratory Tract Infection in Adults >= 18 years of age. + +-------- --------+ + -----+|Procalcitonin |Interpretation ?|Antibiotic ? ? |Considerations ? |ng/mL ? | ?|recommendation | ? + +-------- --------+ + -----+| <0.1 ? | Bacterial ? ? ?| Strongly ? ? ?| ? | ?| infection very | discouraged ? | Overruling: ? | ?| unlikely ? ? ? | ? | ? Clinically unstable ? ? ? + +-------- --------+ + ? High risk for adverse ? ? | <0.25 ?| Bacterial ? ? ?| Discouraged ? | ? outcome ? | ?| infection ? ? ?| ? | ? SEE IMPORTANT NOTE ?| ?| unlikely ? ? ? | ? | ? + +-------- --------+ + -----+| >=0.25 ? ? ? | Bacterial ? ? ?| Encouraged ? ?| ? | ?| infection ? ? ?| ? | ? | ?| likely ? | ? | Consider treatment failure ?+ +------- ---------+ -+ if levels does not decrease | >0.5 ? | Bacterial ? ? ?| Strongly ? ? ?| appropriately ? | ?| infection very | encouraged ? ?| ? | ?| likely ? | ? | ? + +-------- --------+ + -----+ Discontinuation of antibiotics in high-acuity patients with suspected or confirmed sepsis in Adults >= 18 years of age. + +-------- --------+ + -----+|Procalcitonin |Interpretation ?|Antibiotic ? ? |Considerations ? |ng/mL ? | ?|recommendation | ? + +-------- --------+ + -----+| <0.25 ?| Bacterial ? ? ?| Strongly ? ? ?| ? | ?| infection very | discouraged ? | Overruling: ? | ?| unlikely ? ? ? | ? | ? Clinically unstable ? ? ? + +-------- --------+ + ? High risk for adverse ? ? | <0.5 or drop | Bacterial ? ? ?| Discouraged ? | ? outcome ? | >80% from ? ?| infection ? ? ?| ? | ? SEE IMPORTANT NOTE ?| highest PCT ?| unlikely ? ? ? | ? | ? | level ?| ?| ? | ? + +-------- --------+ + -----+| >=0.5 ?| Bacterial ? ? ?| Encouraged ? ?| ? | ?| infection ? ? ?| ? | ? | ?| likely ? | ? | Consider treatment failure ?+ +------- ---------+ -+ if levels does not decrease | >1.0 ? | Bacterial ? ? ?| Strongly ? ? ?| appropriately ? | ?| infection very | encouraged ? ?| ? | ?| likely ? | ? | ? + +-------- --------+ + -----+ Percentage of drop of Procalcitonin calculation for Discontinuation of antibiotics in high-acuity patients with suspected or confirmed sepsis in Adults >= 18 years of age. ? Procalcitonin highest{}-Procalcitonin current{}Delta Procalcitonin = x100% ? Procalcitonin current {} IMPORTANT NOTE: Procalcitonin may be elevated without bacterial infection by physiologic stress related to trauma, bazzi, chronic dialysis, metastatic cancer, surgery in the past seven days, malaria, some fungal infections, and some forms of vasculitis. The interpretation algorithm may not apply to patients with immunosuppression (equivalent of >10 mg of prednisone daily), HIV with CD4 cell count < 350 cells/mm3, active malignancy on systemic chemotherapy, solid organ transplant or hematopoietic stem cell transplantation, or hospital acquired pneumonia. Additionally, some clinical trials of procalcitonin have excluded patients with shock requiring vasopressor use, acute respiratory failure requiring mechanical ventilation, or those with known lung abscess/empyema. For further information please refer to:[email or web address] Lab Interpretation Abnormal (test code = 53342-1) [facility] (for use with Heparin Infusion)2023-02-25 21:24:00 Test Item Value Reference Range Interpretation Comments APTT Patient (test code 51 See_Comment H [Au tomated message] = 3173-2) The system [employer] generated this result transmitted ref erence range: 26 - 36 Seconds. The reference range was not used to int erpret this result as normal/abnormal . Lab Interpretation (test Abnormal code = 34614-6) [facility] (for use with Heparin Infusion)2023-02-25 21:24:00 Test Item Value Reference Range Interpretation Comments APTT Patient (test code 51 See_Comment H [Au tomated message] = 3173-2) The system [employer] generated this result transmitted ref erence range: 26 - 36 Seconds. The reference range was not used to int erpret this result as normal/abnormal . Lab Interpretation (test Abnormal code = 40834-4) [facility] GLUCOSE (AUTOMATED)2023-02-25 21:08:30 Test Item Value Reference Range Interpretation Comments POCT GLU (test code = 3647614564) 314 mg/dL 70-110 H Lab Interpretation (test code = Abnormal 52339-6) [facility] GLUCOSE (AUTOMATED)2023-02-25 21:08:30 Test Item Value Reference Range Interpretation Comments POCT GLU (test code = 6015281449) 314 mg/dL 70-110 H Lab Interpretation (test code = Abnormal 54102-3) [facility] GLUCOSE (AUTOMATED)2023-02-25 17:25:44 Test Item Value Reference Range Interpretation Comments POCT GLU (test code = 9176345083) 294 mg/dL 70-110 H Lab Interpretation (test code = Abnormal 37918-4) [facility] GLUCOSE (AUTOMATED)2023-02-25 17:25:44 Test Item Value Reference Range Interpretation Comments POCT GLU (test code = 1942124707) 294 mg/dL 70-110 H Lab Interpretation (test code = Abnormal 61358-8) [facility] GLUCOSE (AUTOMATED)2023-02-25 13:15:42 Test Item Value Reference Range Interpretation Comments POCT GLU (test code = 2695402904) 278 mg/dL 70-110 H Lab Interpretation (test code = Abnormal 73831-4) [facility] GLUCOSE (AUTOMATED)2023-02-25 13:15:42 Test Item Value Reference Range Interpretation Comments POCT GLU (test code = 9360650511) 278 mg/dL 70-110 H Lab Interpretation (test code = Abnormal 95804-4) [facility] (ALB,T.PRO,BILI T,BU/BC,ALT,AST,ALK PHOS)2023-02-25 10:22:27 Test Item Value Reference Range Interpretation Comments TOTAL BILI (test code = 7168973779) 3.6 mg/dL 0.1-1.1 H BILI UNCON (test code = 0507182434) 0.8 mg/dL 0.1-1.1 BILI CONJ (test code = 4041772541) 1.7 mg/dL 0.0-0.3 H T PROTEIN (test code = 2731166323) 5.5 g/dL 6.3-8.2 L ALBUMIN (test code = 0613377086) 2.4 g/dL 3.5-5.0 L ALK PHOS (test code = 6704335134) 165 U/L 34-122 H ALTv (test code = 1742-6) 652 U/L 5-50 H AST(SGOT) (test code = 9746806494) 1877 U/L 13-40 H Lab Interpretation (test code = Abnormal 42228-8) [facility] (ALB,T.PRO,BILI T,BU/BC,ALT,AST,ALK PHOS)2023-02-25 10:22:27 Test Item Value Reference Range Interpretation Comments TOTAL BILI (test code = 1514288547) 3.6 mg/dL 0.1-1.1 H BILI UNCON (test code = 7836703159) 0.8 mg/dL 0.1-1.1 BILI CONJ (test code = 3182252381) 1.7 mg/dL 0.0-0.3 H T PROTEIN (test code = 7565241255) 5.5 g/dL 6.3-8.2 L ALBUMIN (test code = 2799698816) 2.4 g/dL 3.5-5.0 L ALK PHOS (test code = 7400482661) 165 U/L 34-122 H ALTv (test code = 1742-6) 652 U/L 5-50 H AST(SGOT) (test code = 6663488469) 1877 U/L 13-40 H Lab Interpretation (test code = Abnormal 48893-0) [facility]25 Test Item Value Reference Range Interpretation Comments PHOSPHORUS (test code = 7673061273) 3.7 mg/dL 2.5-5.0 Lab Interpretation (test code = Normal 23379-0) [facility] 09:57:25 Test Item Value Reference Range Interpretation Comments PHOSPHORUS (test code = 4346520944) 3.7 mg/dL 2.5-5.0 Lab Interpretation (test code = Normal 93764-2) [facility] (NA, K, CL, CO2, GLUCOSE, BUN, CREATININE, CA)2023-02-25 09:57:24 Test Item Value Reference Range Interpretation Comments NA (test code = 133 mmol/L 135-145 L 6149230463) K (test code = 4.6 mmol/L 3.5-5.0 5938134589) CL (test code = 105 mmol/L 98-108 6854469136) CO2 TOTAL (test code = 17 mmol/L 23-31 L 9208562664) AGAP (test code = 11 2-16 6371213842) BUN (test code = 29 mg/dL 7-23 H 5484284998) GLUCOSE (test code = 234 mg/dL 70-110 H 1329838525) CREATININE (test code = 1.55 mg/dL 0.60-1.25 H 7151474979) CALCIUM (test code = 6.8 mg/dL 8.6-10.6 L 6323323677) eGFR (test code = 45.8 mL/min/1.73m2 3287217273) MIKAYLA (test code = MIKAYLA) Association of Glomerular Filtration Rate (GFR) and Staging of Kidney Disease* + --+ --+ ------+| GFR (mL/min/1.73 m2) ?| With Kidney Damage ?| ?Without Kidney Damage+ --------+ --------+ +| ?>90 ?| ?Stage one ?| ? Normal ?+ ---+ ---+ -------+| ?60-89 ?| ?Stage two ?| ? Decreased GFR ? + --+ --+ ------+| ?30-59 ?| ?Stage three ?| ? Stage three ? + --+ --+ ------+| ?15-29 ?| ?Stage four ? | ? Stage four ?+ ---+ ---+ -------+| ?<15 (or dialysis) ? ?| ?Stage five ? | ? Stage five ?+ ---+ ---+ -------+ *Each stage assumes the associated GFR level has been in effect for at least three months. ?Stages 1 to 5, with or without kidney disease, indicate chronic kidney disease. Notes: Determination of stages one and two (with eGFR >59mL/min/1.73 m2) requires estimation of kidney damage for at least three months as defined by structural or functional abnormalities of the kidney, manifested by either:Pathological abnormalities or Markers of kidney damage (including abnormalities in the composition of the blood or urine or abnormalities in imaging tests). Lab Interpretation Abnormal (test code = 18897-7) [facility]57[facility]24 Test Item Value Reference Range Interpretation Comments MAGNESIUM (test code = 3275307672) 2.4 mg/dL 1.7-2.4 Lab Interpretation (test code = Normal 30410-7) [facility] (NA, K, CL, CO2, GLUCOSE, BUN, CREATININE, CA)2023-02-25 09:57:24 Test Item Value Reference Range Interpretation Comments NA (test code = 133 mmol/L 135-145 L 6667713195) K (test code = 4.6 mmol/L 3.5-5.0 7630205395) CL (test code = 105 mmol/L 98-108 9742206105) CO2 TOTAL (test code = 17 mmol/L 23-31 L 5962485661) AGAP (test code = 11 2-16 9680932196) BUN (test code = 29 mg/dL 7-23 H 0394911610) GLUCOSE (test code = 234 mg/dL 70-110 H 1169593534) CREATININE (test code = 1.55 mg/dL 0.60-1.25 H 6853677108) CALCIUM (test code = 6.8 mg/dL 8.6-10.6 L 2347902851) eGFR (test code = 45.8 mL/min/1.73m2 3620426435) MIKAYLA (test code = MIKAYLA) Association of Glomerular Filtration Rate (GFR) and Staging of Kidney Disease* + --+ --+ ------+| GFR (mL/min/1.73 m2) ?| With Kidney Damage ?| ?Without Kidney Damage+ --------+ --------+ +| ?>90 ?| ?Stage one ?| ? Normal ?+ ---+ ---+ -------+| ?60-89 ?| ?Stage two ?| ? Decreased GFR ? + --+ --+ ------+| ?30-59 ?| ?Stage three ?| ? Stage three ? + --+ --+ ------+| ?15-29 ?| ?Stage four ? | ? Stage four ?+ ---+ ---+ -------+| ?<15 (or dialysis) ? ?| ?Stage five ? | ? Stage five ?+ ---+ ---+ -------+ *Each stage assumes the associated GFR level has been in effect for at least three months. ?Stages 1 to 5, with or without kidney disease, indicate chronic kidney disease. Notes: Determination of stages one and two (with eGFR >59mL/min/1.73 m2) requires estimation of kidney damage for at least three months as defined by structural or functional abnormalities of the kidney, manifested by either:Pathological abnormalities or Markers of kidney damage (including abnormalities in the composition of the blood or urine or abnormalities in imaging tests). Lab Interpretation Abnormal (test code = 72430-4) [facility] Test Item Value Reference Range Interpretation Comments MAGNESIUM (test code = 2595730520) 2.4 mg/dL 1.7-2.4 Lab Interpretation (test code = Normal 86173-0) [facility]AP3965-40-26 09:56:49 Test Item Value Reference Range Interpretation Comments WBC (test code = 23.90 See_Comment H [Automated 6690-2) message] The sy stem which generated this result transmitted reference range : 4.20 - 10.70 10*3/?L. The reference range was not used to interpret this result as normal/abnormal . RBC (test code = 2.28 See_Comment L [Automated 789-8) message] The sy stem which generated this result transmitted reference range : 4.26 - 5.52 10*6/?L. The reference range was not used to interpret this result as normal/abnormal . HGB (test code = 7.4 g/dL 12.2-16.4 L 718-7) HCT (test code = 22.2 % 38.4-49.3 L 4544-3) MCV (test code = 97.4 fL 81.7-95.6 H 787-2) MCH (test code = 32.5 pg 26.1-32.7 785-6) MCHC (test code = 33.3 g/dL 31.2-35.0 786-4) RDW-SD (test code = 63.0 fL 38.5-51.6 H 33300-1) RDW-CV (test code = 21.4 % 12.1-15.4 H 788-0) PLT (test code = 75 See_Comment L [Automated 777-3) message] The sy stem which generated this result transmitted reference range : 150 - 328 10*3/ ?L. The reference r kyra was not used to interpret this result as normal/abnormal . MPV (test code = 14.0 fL 9.8-13.0 H 96116-1) IPF % (test code = 20.7 % 1.2-10.7 H Platelet count [id number]) measured by fluorescence method. NRBC/100 WBC (test 0.4 See_Comment [Automat ed code = 6952364846) message] The system which generated this result transmitted reference range : 0.0 - 10.0 /100 WBCs. The refer ence range was not u sed to interpret th is result as normal/abnormal . NRBC x10^3 (test code 0.10 See_Comment [Auto mated = 4581969710) message] The s ystem which generated this result transmitted reference range : 10*3/?L. The reference range was not used to interpret this result as normal/abnormal . GRAN MAT (NEUT) % 89.4 % (test code = 770-8) IMM GRAN % (test code 2.80 % = 6187003938) LYMPH % (test code = 3.3 % 736-9) MONO % (test code = 4.1 % 5905-5) EOS % (test code = 0.2 % 713-8) BASO % (test code = 0.2 % 706-2) GRAN MAT x10^3(ANC) 21.39 10*3/uL 1.99-6.95 H (test code = 1565070055) IMM GRAN x10^3 (test 0.66 10*3/uL 0.00-0.06 H code = 7826571695) LYMPH x10^3 (test 0.79 10*3/uL 1.09-3.23 L code = 731-0) MONO x10^3 (test code 0.98 10*3/uL 0.36-1.02 = 742-7) EOS x10^3 (test code 0.04 10*3/uL 0.06-0.53 L = 711-2) BASO x10^3 (test code 0.04 10*3/uL 0.01-0.09 = 704-7) POLYCHROMASIA (test 2+ See_Comment [Automa che code = 60755-3) message] The system which generated this result transmitted reference range : 2+. The referen ce range was not u sed to interpret th is result as normal/abnormal . Lab Interpretation Abnormal (test code = 28717-9) [facility] WITH [id number] 09:56:49 Test Item Value Reference Range Interpretation Comments WBC (test code = 23.90 See_Comment H [Automated 7406-2) message] The sy stem which generated this result transmitted reference range : 4.20 - 10.70 10*3/?L. The reference range was not used to interpret this result as normal/abnormal . RBC (test code = 2.28 See_Comment L [Automated 789-8) message] The sy stem which generated this result transmitted reference range : 4.26 - 5.52 10*6/?L. The reference range was not used to interpret this result as normal/abnormal . HGB (test code = 7.4 g/dL 12.2-16.4 L 718-7) HCT (test code = 22.2 % 38.4-49.3 L 4544-3) MCV (test code = 97.4 fL 81.7-95.6 H 787-2) MCH (test code = 32.5 pg 26.1-32.7 785-6) MCHC (test code = 33.3 g/dL 31.2-35.0 786-4) RDW-SD (test code = 63.0 fL 38.5-51.6 H 03516-6) RDW-CV (test code = 21.4 % 12.1-15.4 H 788-0) PLT (test code = 75 See_Comment L [Automated 777-3) message] The sy stem which generated this result transmitted reference range : 150 - 328 10*3/ ?L. The reference r kyra was not used to interpret this result as normal/abnormal . MPV (test code = 14.0 fL 9.8-13.0 H 99652-3) IPF % (test code = 20.7 % 1.2-10.7 H Platelet count [id number]) measured by fluorescence method. NRBC/100 WBC (test 0.4 See_Comment [Automat ed code = 6959414814) message] The system which generated this result transmitted reference range : 0.0 - 10.0 /100 WBCs. The refer ence range was not u sed to interpret th is result as normal/abnormal . NRBC x10^3 (test code 0.10 See_Comment [Auto mated = 5266499610) message] The s ystem which generated this result transmitted reference range : 10*3/?L. The reference range was not used to interpret this result as normal/abnormal . GRAN MAT (NEUT) % 89.4 % (test code = 770-8) IMM GRAN % (test code 2.80 % = 8473593575) LYMPH % (test code = 3.3 % 736-9) MONO % (test code = 4.1 % 5905-5) EOS % (test code = 0.2 % 713-8) BASO % (test code = 0.2 % 706-2) GRAN MAT x10^3(ANC) 21.39 10*3/uL 1.99-6.95 H (test code = 7731210547) IMM GRAN x10^3 (test 0.66 10*3/uL 0.00-0.06 H code = 4968469462) LYMPH x10^3 (test 0.79 10*3/uL 1.09-3.23 L code = 731-0) MONO x10^3 (test code 0.98 10*3/uL 0.36-1.02 = 742-7) EOS x10^3 (test code 0.04 10*3/uL 0.06-0.53 L = 711-2) BASO x10^3 (test code 0.04 10*3/uL 0.01-0.09 = 704-7) POLYCHROMASIA (test 2+ See_Comment [Automa che code = 66594-4) message] The system which generated this result transmitted reference range : 2+. The referen ce range was not u sed to interpret th is result as normal/abnormal . Lab Interpretation Abnormal (test code = 32829-3) [facility] (for use with Heparin Infusion)2023-02-25 09:42:25 Test Item Value Reference Range Interpretation Comments APTT Patient (test code 54 See_Comment H [Au tomated message] = 3173-2) The system [employer]IC[employer] generated this result transmitted ref erence range: 26 - 36 Seconds. The reference range was not used to int erpret this result as normal/abnormal . Lab Interpretation (test Abnormal code = 32491-5) [facility] (for use with Heparin Infusion)2023-02-25 09:42:25 Test Item Value Reference Range Interpretation Comments APTT Patient (test code 54 See_Comment H [Au tomated message] = 3173-2) The system [employer]IC[employer] generated this result transmitted ref erence range: 26 - 36 Seconds. The reference range was not used to int erpret this result as normal/abnormal . Lab Interpretation (test Abnormal code = 92423-9) [facility] GLUCOSE (AUTOMATED)2023-02-25 09:23:13 Test Item Value Reference Range Interpretation Comments POCT GLU (test code = 5364575296) 273 mg/dL 70-110 H Lab Interpretation (test code = Abnormal 40149-9) [facility] GLUCOSE (AUTOMATED)2023-02-25 09:23:13 Test Item Value Reference Range Interpretation Comments POCT GLU (test code = 6560390229) 273 mg/dL 70-110 H Lab Interpretation (test code = Abnormal 65584-3) [facility] [id number] 05:17:24 Test Item Value Reference Range Interpretation Comments PH (test code = 2) 7.36 7.35-7.45 PCO2 (test code = 33 See_Comment L [Automate d 2442192411) message] The sy stem which generated this result transmitted reference range : 35 - 45 mmHg. The reference range was not used to interpret this result as normal/abnormal . PO2 (test code = 119 See_Comment H [Automated 0683751645) message] The sy stem which generated this result transmitted reference range : 80 - 100 mmHg. The reference range was not used to interpret this result as normal/abnormal . HCO3 (test code = 18 See_Comment L [Automate d 5449101803) message] The sy stem which generated this result transmitted reference range : 22 - 26 mEq/L. The reference range was not used to interpret this result as normal/abnormal . BE (test code = -6.8 See_Comment L [Automated 9507371188) message] The sy stem which generated this result transmitted reference range : -3.0 - 3.0 mEq/ L. The reference r kyra was not used to interpret this result as normal/abnormal . THB (test code = 8.8 g/dL 13.5-18.0 L 8861838952) %O2HB (test code = 96.7 % 94.0-99.0 9301540124) %COHB ART (test code = 1.4 % 0.0-1.5 2059051794) %METHB ART (test code = 0.1 % 0.4-1.5 L 4872279635) VOL%O2 ART (test code = 12.2 % 15.0-23.0 L 9336714494) NA (test code = 134 mmol/L 135-145 L 2033293553) K+ (test code = 4.4 mmol/L 3.5-5.0 7259031815) AC CA IONZ (test code = 4.10 mg/dL 4.50-5.30 L 8515161067) GLUCOSE (test code = 224 mg/dL 70-110 H 5748113942) LACTIC ACID (test code 2.09 mmol/L 0.50-2.20 = 8975792263) Lab Interpretation Abnormal (test code = 09499-5) [facility] Curb2380-48-50 05:17:24 Test Item Value Reference Range Interpretation Comments PH (test code = 2) 7.36 7.35-7.45 PCO2 (test code = 33 See_Comment L [Automate d 7105532551) message] The sy stem which generated this result transmitted reference range : 35 - 45 mmHg. The reference range was not used to interpret this result as normal/abnormal . PO2 (test code = 119 See_Comment H [Automated 8459318497) message] The sy stem which generated this result transmitted reference range : 80 - 100 mmHg. The reference range was not used to interpret this result as normal/abnormal . HCO3 (test code = 18 See_Comment L [Automate d 7000558886) message] The sy stem which generated this result transmitted reference range : 22 - 26 mEq/L. The reference range was not used to interpret this result as normal/abnormal . BE (test code = -6.8 See_Comment L [Automated 6868736079) message] The sy stem which generated this result transmitted reference range : -3.0 - 3.0 mEq/ L. The reference r kyra was not used to interpret this result as normal/abnormal . THB (test code = 8.8 g/dL 13.5-18.0 L 3632236797) %O2HB (test code = 96.7 % 94.0-99.0 8411139390) %COHB ART (test code = 1.4 % 0.0-1.5 1075149809) %METHB ART (test code = 0.1 % 0.4-1.5 L 2451636169) VOL%O2 ART (test code = 12.2 % 15.0-23.0 L 0114621546) NA (test code = 134 mmol/L 135-145 L 6911330171) K+ (test code = 4.4 mmol/L 3.5-5.0 1736739308) AC CA IONZ (test code = 4.10 mg/dL 4.50-5.30 L 2565441366) GLUCOSE (test code = 224 mg/dL 70-110 H 8367556917) LACTIC ACID (test code 2.09 mmol/L 0.50-2.20 = 5096852907) Lab Interpretation Abnormal (test code = 19121-3) [facility] GLUCOSE (AUTOMATED)2023-02-25 00:59:06 Test Item Value Reference Range Interpretation Comments POCT GLU (test code = 9601970921) 210 mg/dL 70-110 H Lab Interpretation (test code = Abnormal 65658-3) [facility] GLUCOSE (AUTOMATED)2023-02-25 00:59:06 Test Item Value Reference Range Interpretation Comments POCT GLU (test code = 2144592731) 210 mg/dL 70-110 H Lab Interpretation (test code = Abnormal 02484-8) [facility] [id number] 22:00:29 Test Item Value Reference Range Interpretation Comments PHOSPHORUS (test code = 6972044996) 3.1 mg/dL 2.5-5.0 Lab Interpretation (test code = Normal 38582-8) [facility] Ytlub4731-56-02 22:00:29 Test Item Value Reference Range Interpretation Comments PHOSPHORUS (test code = 8881115203) 3.1 mg/dL 2.5-5.0 Lab Interpretation (test code = Normal 15705-3) [facility] (for use with Heparin Infusion)2023-02-24 21:43:27 Test Item Value Reference Range Interpretation Comments APTT Patient (test code 52 See_Comment H [Au tomated message] = 5663-2) The system [employer] generated this result transmitted ref erence range: 26 - 36 Seconds. The reference range was not used to int erpret this result as normal/abnormal . Lab Interpretation (test Abnormal code = 02612-2) [facility] (for use with Heparin Infusion)2023-02-24 21:43:27 Test Item Value Reference Range Interpretation Comments APTT Patient (test code 52 See_Comment H [Au tomated message] = 3173-2) The system whic h generated this result transmitted ref erence range: 26 - 36 Seconds. The reference range was not used to int erpret this result as normal/abnormal . Lab Interpretation (test Abnormal code = 82543-6) [facility] Lactic [id number] 21:29:23 Test Item Value Reference Range Interpretation Comments PH (test code = 2) 7.39 7.35-7.45 PCO2 (test code = 32 See_Comment L [Automate d 8357892840) message] The sy stem which generated this result transmitted reference range : 35 - 45 mmHg. The reference range was not used to interpret this result as normal/abnormal . PO2 (test code = 89 See_Comment [Automated 6729605470) message] The sy stem which generated this result transmitted reference range : 80 - 100 mmHg. The reference range was not used to interpret this result as normal/abnormal . HCO3 (test code = 19 See_Comment L [Automate d 8589307382) message] The sy stem which generated this result transmitted reference range : 22 - 26 mEq/L. The reference range was not used to interpret this result as normal/abnormal . BE (test code = -5.3 See_Comment L [Automated 4342872557) message] The sy stem which generated this result transmitted reference range : -3.0 - 3.0 mEq/ L. The reference r kyra was not used to interpret this result as normal/abnormal . THB (test code = 9.3 g/dL 13.5-18.0 L 0023615819) %O2HB (test code = 95.1 % 94.0-99.0 4803414982) %COHB ART (test code = 1.3 % 0.0-1.5 7877763953) %METHB ART (test code = 0.1 % 0.4-1.5 L 3559484059) VOL%O2 ART (test code = 12.6 % 15.0-23.0 L 0719210691) NA (test code = 135 mmol/L 135-145 9329146308) K+ (test code = 4.2 mmol/L 3.5-5.0 9983329082) AC CA IONZ (test code = 4.30 mg/dL 4.50-5.30 L 7571185523) GLUCOSE (test code = 191 mg/dL 70-110 H 7897331960) LACTIC ACID (test code 1.96 mmol/L 0.50-2.20 = 3615646250) Lab Interpretation Abnormal (test code = 43469-1) [facility] Lactic [id number] 21:29:23 Test Item Value Reference Range Interpretation Comments PH (test code = 2) 7.39 7.35-7.45 PCO2 (test code = 32 See_Comment L [Automate d 8379411155) message] The sy stem which generated this result transmitted reference range : 35 - 45 mmHg. The reference range was not used to interpret this result as normal/abnormal . PO2 (test code = 89 See_Comment [Automated 9775335400) message] The sy stem which generated this result transmitted reference range : 80 - 100 mmHg. The reference range was not used to interpret this result as normal/abnormal . HCO3 (test code = 19 See_Comment L [Automate d 5306224968) message] The sy stem which generated this result transmitted reference range : 22 - 26 mEq/L. The reference range was not used to interpret this result as normal/abnormal . BE (test code = -5.3 See_Comment L [Automated 2153615874) message] The sy stem which generated this result transmitted reference range : -3.0 - 3.0 mEq/ L. The reference r kyra was not used to interpret this result as normal/abnormal . THB (test code = 9.3 g/dL 13.5-18.0 L 0497138258) %O2HB (test code = 95.1 % 94.0-99.0 2347096995) %COHB ART (test code = 1.3 % 0.0-1.5 0642918600) %METHB ART (test code = 0.1 % 0.4-1.5 L 6398725952) VOL%O2 ART (test code = 12.6 % 15.0-23.0 L 4406211338) NA (test code = 135 mmol/L 135-145 6181459166) K+ (test code = 4.2 mmol/L 3.5-5.0 0417538011) AC CA IONZ (test code = 4.30 mg/dL 4.50-5.30 L 1078847192) GLUCOSE (test code = 191 mg/dL 70-110 H 7622090104) LACTIC ACID (test code 1.96 mmol/L 0.50-2.20 = 5634306403) Lab Interpretation Abnormal (test code = 39844-4) [facility] GLUCOSE (AUTOMATED)2023-02-24 20:38:37 Test Item Value Reference Range Interpretation Comments POCT GLU (test code = 8615765422) 189 mg/dL 70-110 H Lab Interpretation (test code = Abnormal 51255-3) [facility] GLUCOSE (AUTOMATED)2023-02-24 20:38:37 Test Item Value Reference Range Interpretation Comments POCT GLU (test code = 4441029984) 189 mg/dL 70-110 H Lab Interpretation (test code = Abnormal 18650-5) [facility] GLUCOSE (AUTOMATED)2023-02-24 17:57:20 Test Item Value Reference Range Interpretation Comments POCT GLU (test code = 2910067172) 172 mg/dL 70-110 H Lab Interpretation (test code = Abnormal 29792-8) [facility] GLUCOSE (AUTOMATED)2023-02-24 17:57:20 Test Item Value Reference Range Interpretation Comments POCT GLU (test code = 6241400946) 172 mg/dL 70-110 H Lab Interpretation (test code = Abnormal 60262-2) [facility] [id number] 14:09:42 Test Item Value Reference Range Interpretation Comments SPUTUM CULTURE Scant (< 1+) Respiratory (test code = driss: Commensal upper 622-1) respiratory microorganisms only. Gram stain (test Few Polymorphonuclear code = 664-3) leukocytes MIKAYLA (test code = Bacterial pathogens MIKAYLA) associated with lower respiratory infections were not identified, which include Pseudomonas aeruginosa and Staphylococcus aureus (MRSA or MSSA). [facility] [id number] 14:09:42 Test Item Value Reference Range Interpretation Comments SPUTUM CULTURE Scant (< 1+) Respiratory (test code = driss: Commensal upper 622-1) respiratory microorganisms only. Gram stain (test Few Polymorphonuclear code = 664-3) leukocytes MIKAYLA (test code = Bacterial pathogens MIKAYLA) associated with lower respiratory infections were not identified, which include Pseudomonas aeruginosa and Staphylococcus aureus (MRSA or MSSA). [facility] Lactic [id number] 13:57:41 Test Item Value Reference Range Interpretation Comments PH (test code = 2) 7.41 7.35-7.45 PCO2 (test code = 32 See_Comment L [Automate d 3747313757) message] The sy stem which generated this result transmitted reference range : 35 - 45 mmHg. The reference range was not used to interpret this result as normal/abnormal . PO2 (test code = 88 See_Comment [Automated 1096240339) message] The sy stem which generated this result transmitted reference range : 80 - 100 mmHg. The reference range was not used to interpret this result as normal/abnormal . HCO3 (test code = 20 See_Comment L [Automate d 2119560548) message] The sy stem which generated this result transmitted reference range : 22 - 26 mEq/L. The reference range was not used to interpret this result as normal/abnormal . BE (test code = -4.1 See_Comment L [Automated 6217232519) message] The sy stem which generated this result transmitted reference range : -3.0 - 3.0 mEq/ L. The reference r kyra was not used to interpret this result as normal/abnormal . THB (test code = 6.2 g/dL 13.5-18.0 LL 6378252064) %O2HB (test code = 94.9 % 94.0-99.0 1068895592) %COHB ART (test code = 1.1 % 0.0-1.5 6317551082) %METHB ART (test code = 0.2 % 0.4-1.5 L 2810693395) VOL%O2 ART (test code = 8.5 % 15.0-23.0 L 3005854518) NA (test code = 135 mmol/L 135-145 2767805255) K+ (test code = 3.9 mmol/L 3.5-5.0 7808112770) AC CA IONZ (test code = 4.40 mg/dL 4.50-5.30 L 7308791883) GLUCOSE (test code = 177 mg/dL 70-110 H 9358083934) LACTIC ACID (test code 2.29 mmol/L 0.50-2.20 H = 9885482845) Lab Interpretation Abnormal (test code = 30941-7) [facility] Lactic Jaac8577-66-00 13:57:41 Test Item Value Reference Range Interpretation Comments PH (test code = 2) 7.41 7.35-7.45 PCO2 (test code = 32 See_Comment L [Automate d 2571811928) message] The sy stem which generated this result transmitted reference range : 35 - 45 mmHg. The reference range was not used to interpret this result as normal/abnormal . PO2 (test code = 88 See_Comment [Automated 2098962330) message] The sy stem which generated this result transmitted reference range : 80 - 100 mmHg. The reference range was not used to interpret this result as normal/abnormal . HCO3 (test code = 20 See_Comment L [Automate d 2205975285) message] The sy stem which generated this result transmitted reference range : 22 - 26 mEq/L. The reference range was not used to interpret this result as normal/abnormal . BE (test code = -4.1 See_Comment L [Automated 5725111729) message] The sy stem which generated this result transmitted reference range : -3.0 - 3.0 mEq/ L. The reference r kyra was not used to interpret this result as normal/abnormal . THB (test code = 6.2 g/dL 13.5-18.0 LL 9570490582) %O2HB (test code = 94.9 % 94.0-99.0 7164019026) %COHB ART (test code = 1.1 % 0.0-1.5 7535065608) %METHB ART (test code = 0.2 % 0.4-1.5 L 5563564289) VOL%O2 ART (test code = 8.5 % 15.0-23.0 L 7630173120) NA (test code = 135 mmol/L 135-145 8703732185) K+ (test code = 3.9 mmol/L 3.5-5.0 1269852370) AC CA IONZ (test code = 4.40 mg/dL 4.50-5.30 L 4319277046) GLUCOSE (test code = 177 mg/dL 70-110 H 9084251428) LACTIC ACID (test code 2.29 mmol/L 0.50-2.20 H = 1934311342) Lab Interpretation Abnormal (test code = 10764-9) [facility] GLUCOSE (AUTOMATED)2023-02-24 09:19:49 Test Item Value Reference Range Interpretation Comments POCT GLU (test code = 9704404618) 177 mg/dL 70-110 H Lab Interpretation (test code = Abnormal 33051-9) [facility] GLUCOSE (AUTOMATED)2023-02-24 09:19:49 Test Item Value Reference Range Interpretation Comments POCT GLU (test code = 8861756348) 177 mg/dL 70-110 H Lab Interpretation (test code = Abnormal 78240-2) [facility] Lactic Tbpc5656-14-07 07:29:40 Test Item Value Reference Range Interpretation Comments PH (test code = 2) 7.38 7.35-7.45 PCO2 (test code = 30 See_Comment L [Automat ed 3266791578) message] The sy stem which generated this result transmitted reference range : 35 - 45 mmHg. The reference range was not used to interpret this result as normal/abnormal . PO2 (test code = 87 See_Comment [Automated 6934751442) message] The sy stem which generated this result transmitted reference range : 80 - 100 mmHg. The reference range was not used to interpret this result as normal/abnormal . HCO3 (test code = 17 See_Comment L [Automate d 4549293871) message] The sy stem which generated this result transmitted reference range : 22 - 26 mEq/L. The reference range was not used to interpret this result as normal/abnormal . BE (test code = -6.8 See_Comment L [Automated 0558489269) message] The sy stem which generated this result transmitted reference range : -3.0 - 3.0 mEq/ L. The reference r kyra was not used to interpret this result as normal/abnormal . THB (test code = 9.5 g/dL 13.5-18.0 L 1801198116) %O2HB (test code = 95.5 % 94.0-99.0 5530421664) %COHB ART (test code = 0.6 % 0.0-1.5 2360911760) %METHB ART (test code = 0.2 % 0.4-1.5 L 1823805560) VOL%O2 ART (test code = 12.9 % 15.0-23.0 L 4677334211) NA (test code = 135 mmol/L 135-145 5665523037) K+ (test code = 4.0 mmol/L 3.5-5.0 5117347541) AC CA IONZ (test code = 4.60 mg/dL 4.50-5.30 4009841050) GLUCOSE (test code = 169 mg/dL 70-110 H 4948412602) LACTIC ACID (test code 2.59 mmol/L 0.50-2.20 H = 2576238035) Lab Interpretation Abnormal (test code = 71186-0) [facility] Lactic Lfbm3859-06-70 07:29:40 Test Item Value Reference Range Interpretation Comments PH (test code = 2) 7.38 7.35-7.45 PCO2 (test code = 30 See_Comment L [Automate d 3909553247) message] The sy stem which generated this result transmitted reference range : 35 - 45 mmHg. The reference range was not used to interpret this result as normal/abnormal . PO2 (test code = 87 See_Comment [Automated 3910266658) message] The sy stem which generated this result transmitted reference range : 80 - 100 mmHg. The reference range was not used to interpret this result as normal/abnormal . HCO3 (test code = 17 See_Comment L [Automate d 2716934747) message] The sy stem which generated this result transmitted reference range : 22 - 26 mEq/L. The reference range was not used to interpret this result as normal/abnormal . BE (test code = -6.8 See_Comment L [Automated 8113660078) message] The sy stem which generated this result transmitted reference range : -3.0 - 3.0 mEq/ L. The reference r kyra was not used to interpret this result as normal/abnormal . THB (test code = 9.5 g/dL 13.5-18.0 L 8547030944) %O2HB (test code = 95.5 % 94.0-99.0 5177657155) %COHB ART (test code = 0.6 % 0.0-1.5 8086331814) %METHB ART (test code = 0.2 % 0.4-1.5 L 4966688928) VOL%O2 ART (test code = 12.9 % 15.0-23.0 L 1749635207) NA (test code = 135 mmol/L 135-145 7692013484) K+ (test code = 4.0 mmol/L 3.5-5.0 2515087697) AC CA IONZ (test code = 4.60 mg/dL 4.50-5.30 0397701437) GLUCOSE (test code = 169 mg/dL 70-110 H 0619099997) LACTIC ACID (test code 2.59 mmol/L 0.50-2.20 H = 1766323548) Lab Interpretation Abnormal (test code = 98909-3) [facility] GLUCOSE (AUTOMATED)2023-02-24 05:18:26 Test Item Value Reference Range Interpretation Comments POCT GLU (test code = 5075662001) 154 mg/dL 70-110 H Lab Interpretation (test code = Abnormal 25351-2) [facility] GLUCOSE (AUTOMATED)2023-02-24 05:18:26 Test Item Value Reference Range Interpretation Comments POCT GLU (test code = 1716037795) 154 mg/dL 70-110 H Lab Interpretation (test code = Abnormal 13549-7) [facility] Lactic Hhiw3162-06-25 01:33:31 Test Item Value Reference Range Interpretation Comments PH (test code = 2) 7.38 7.35-7.45 PCO2 (test code = 31 See_Comment L [Automate d 9002545744) message] The sy stem which generated this result transmitted reference range : 35 - 45 mmHg. The reference range was not used to interpret this result as normal/abnormal . PO2 (test code = 112 See_Comment H [Automated [id number]) message] The sy stem which generated this result transmitted reference range : 80 - 100 mmHg. The reference range was not used to interpret this result as normal/abnormal . HCO3 (test code = 18 See_Comment L [Automate d [id number]) message] The sy stem which generated this result transmitted reference range : 22 - 26 mEq/L. The reference range was not used to interpret this result as normal/abnormal . BE (test code = -5.9 See_Comment L [Automated [id number]) message] The sy stem which generated this result transmitted reference range : -3.0 - 3.0 mEq/ L. The reference r kyra was not used to interpret this result as normal/abnormal . THB (test code = 9.1 g/dL 13.5-18.0 L 7956512383) %O2HB (test code = 96.9 % 94.0-99.0 0454191631) %COHB ART (test code = 0.7 % 0.0-1.5 0676371350) %METHB ART (test code = 0.1 % 0.4-1.5 L 0328534180) VOL%O2 ART (test code = 12.6 % 15.0-23.0 L 7314720194) NA (test code = 135 mmol/L 135-145 6906207228) K+ (test code = 3.7 mmol/L 3.5-5.0 3641162037) AC CA IONZ (test code = 4.60 mg/dL 4.50-5.30 4162169705) GLUCOSE (test code = 165 mg/dL 70-110 H 3532246679) LACTIC ACID (test code 2.83 mmol/L 0.50-2.20 H = 9878670185) Lab Interpretation Abnormal (test code = 25678-9) [facility] [id number] 01:33:31 Test Item Value Reference Range Interpretation Comments PH (test code = 2) 7.38 7.35-7.45 PCO2 (test code = 31 See_Comment L [Automate d 2823339031) message] The sy stem which generated this result transmitted reference range : 35 - 45 mmHg. The reference range was not used to interpret this result as normal/abnormal . PO2 (test code = 112 See_Comment H [Automated [id number]) message] The sy stem which generated this result transmitted reference range : 80 - 100 mmHg. The reference range was not used to interpret this result as normal/abnormal . HCO3 (test code = 18 See_Comment L [Automate d 1764678528) message] The sy stem which generated this result transmitted reference range : 22 - 26 mEq/L. The reference range was not used to interpret this result as normal/abnormal . BE (test code = -5.9 See_Comment L [Automated 7614378597) message] The sy stem which generated this result transmitted reference range : -3.0 - 3.0 mEq/ L. The reference r kyra was not used to interpret this result as normal/abnormal . THB (test code = 9.1 g/dL 13.5-18.0 L 7404512723) %O2HB (test code = 96.9 % 94.0-99.0 6351267583) %COHB ART (test code = 0.7 % 0.0-1.5 7417485148) %METHB ART (test code = 0.1 % 0.4-1.5 L 0668294225) VOL%O2 ART (test code = 12.6 % 15.0-23.0 L 0043879438) NA (test code = 135 mmol/L 135-145 2725801461) K+ (test code = 3.7 mmol/L 3.5-5.0 6896887215) AC CA IONZ (test code = 4.60 mg/dL 4.50-5.30 7114866991) GLUCOSE (test code = 165 mg/dL 70-110 H 7119600106) LACTIC ACID (test code 2.83 mmol/L 0.50-2.20 H = 2227855324) Lab Interpretation Abnormal (test code = 04697-5) [facility] L[facility] [id number] 21:20:26 Test Item Value Reference Range Interpretation Comments PH (test code = 2) 7.39 7.35-7.45 PCO2 (test code = 28 See_Comment L [Automate d 8744036579) message] The sy stem which generated this result transmitted reference range : 35 - 45 mmHg. The reference range was not used to interpret this result as normal/abnormal . PO2 (test code = 101 See_Comment H [Automated 5174924131) message] The sy stem which generated this result transmitted reference range : 80 - 100 mmHg. The reference range was not used to interpret this result as normal/abnormal . HCO3 (test code = 17 See_Comment L [Automate d 2099274921) message] The sy stem which generated this result transmitted reference range : 22 - 26 mEq/L. The reference range was not used to interpret this result as normal/abnormal . BE (test code = -6.9 See_Comment L [Automated 6685236152) message] The sy stem which generated this result transmitted reference range : -3.0 - 3.0 mEq/ L. The reference r kyra was not used to interpret this result as normal/abnormal . THB (test code = 9.9 g/dL 13.5-18.0 L 4876629603) %O2HB (test code = 96.8 % 94.0-99.0 4915302894) %COHB ART (test code = 0.9 % 0.0-1.5 9432396803) %METHB ART (test code = 0.1 % 0.4-1.5 L 2882256834) VOL%O2 ART (test code = 13.6 % 15.0-23.0 L 8399189143) NA (test code = 136 mmol/L 135-145 3306569286) K+ (test code = 3.7 mmol/L 3.5-5.0 1242483333) AC CA IONZ (test code = 4.60 mg/dL 4.50-5.30 0645171449) GLUCOSE (test code = 160 mg/dL 70-110 H 1321179341) LACTIC ACID (test code 2.36 mmol/L 0.50-2.20 H = 9578107308) Lab Interpretation Abnormal (test code = 33985-6) [facility] L[facility] [id number] 21:20:26 Test Item Value Reference Range Interpretation Comments PH (test code = 2) 7.39 7.35-7.45 PCO2 (test code = 28 See_Comment L [Automate d 3700449309) message] The sy stem which generated this result transmitted reference range : 35 - 45 mmHg. The reference range was not used to interpret this result as normal/abnormal . PO2 (test code = 101 See_Comment H [Automated 4494698694) message] The sy stem which generated this result transmitted reference range : 80 - 100 mmHg. The reference range was not used to interpret this result as normal/abnormal . HCO3 (test code = 17 See_Comment L [Automate d 8979844050) message] The sy stem which generated this result transmitted reference range : 22 - 26 mEq/L. The reference range was not used to interpret this result as normal/abnormal . BE (test code = -6.9 See_Comment L [Automated 9120756355) message] The sy stem which generated this result transmitted reference range : -3.0 - 3.0 mEq/ L. The reference r kyra was not used to interpret this result as normal/abnormal . THB (test code = 9.9 g/dL 13.5-18.0 L 2757953869) %O2HB (test code = 96.8 % 94.0-99.0 2722128199) %COHB ART (test code = 0.9 % 0.0-1.5 8669107433) %METHB ART (test code = 0.1 % 0.4-1.5 L 5448152564) VOL%O2 ART (test code = 13.6 % 15.0-23.0 L 6780853518) NA (test code = 136 mmol/L 135-145 7687162416) K+ (test code = 3.7 mmol/L 3.5-5.0 0563145684) AC CA IONZ (test code = 4.60 mg/dL 4.50-5.30 9754167642) GLUCOSE (test code = 160 mg/dL 70-110 H 0341581271) LACTIC ACID (test code 2.36 mmol/L 0.50-2.20 H = 5978784461) Lab Interpretation Abnormal (test code = 69594-5) [facility] Lactic [id number] 18:14:49 Test Item Value Reference Range Interpretation Comments PH (test code = 2) 7.35 7.35-7.45 PCO2 (test code = 32 See_Comment L [Automate d 2948163594) message] The sy stem which generated this result transmitted reference range : 35 - 45 mmHg. The reference range was not used to interpret this result as normal/abnormal . PO2 (test code = 108 See_Comment H [Automated 8902817273) message] The sy stem which generated this result transmitted reference range : 80 - 100 mmHg. The reference range was not used to interpret this result as normal/abnormal . HCO3 (test code = 17 See_Comment L [Automate d 8159309211) message] The sy stem which generated this result transmitted reference range : 22 - 26 mEq/L. The reference range was not used to interpret this result as normal/abnormal . BE (test code = -7.9 See_Comment L [Automated 4198769443) message] The sy stem which generated this result transmitted reference range : -3.0 - 3.0 mEq/ L. The reference r kyra was not used to interpret this result as normal/abnormal . THB (test code = 8.6 g/dL 13.5-18.0 L 4182582109) %O2HB (test code = 96.6 % 94.0-99.0 6269266878) %COHB ART (test code = 0.9 % 0.0-1.5 3923815001) %METHB ART (test code = 0.3 % 0.4-1.5 L 1664190944) VOL%O2 ART (test code = 11.9 % 15.0-23.0 L 7176499896) NA (test code = 136 mmol/L 135-145 0666981733) K+ (test code = 3.9 mmol/L 3.5-5.0 4675730689) AC CA IONZ (test code = 4.70 mg/dL 4.50-5.30 9123686726) GLUCOSE (test code = 153 mg/dL 70-110 H 4532240316) LACTIC ACID (test code 2.59 mmol/L 0.50-2.20 H = 1477894974) Lab Interpretation Abnormal (test code = 39875-9) [facility] Lactic [id number] 18:14:49 Test Item Value Reference Range Interpretation Comments PH (test code = 2) 7.35 7.35-7.45 PCO2 (test code = 32 See_Comment L [Automate d 9110366635) message] The sy stem which generated this result transmitted reference range : 35 - 45 mmHg. The reference range was not used to interpret this result as normal/abnormal . PO2 (test code = 108 See_Comment H [Automated 5747351813) message] The sy stem which generated this result transmitted reference range : 80 - 100 mmHg. The reference range was not used to interpret this result as normal/abnormal . HCO3 (test code = 17 See_Comment L [Automate d 2564870578) message] The sy stem which generated this result transmitted reference range : 22 - 26 mEq/L. The reference range was not used to interpret this result as normal/abnormal . BE (test code = -7.9 See_Comment L [Automated 8198095848) message] The sy stem which generated this result transmitted reference range : -3.0 - 3.0 mEq/ L. The reference r kyra was not used to interpret this result as normal/abnormal . THB (test code = 8.6 g/dL 13.5-18.0 L 3138730743) %O2HB (test code = 96.6 % 94.0-99.0 7613991416) %COHB ART (test code = 0.9 % 0.0-1.5 9184841854) %METHB ART (test code = 0.3 % 0.4-1.5 L 6869428088) VOL%O2 ART (test code = 11.9 % 15.0-23.0 L 8797379025) NA (test code = 136 mmol/L 135-145 1467430679) K+ (test code = 3.9 mmol/L 3.5-5.0 9710219399) AC CA IONZ (test code = 4.70 mg/dL 4.50-5.30 5841593810) GLUCOSE (test code = 153 mg/dL 70-110 H 7724949504) LACTIC ACID (test code 2.59 mmol/L 0.50-2.20 H = 4461274518) Lab Interpretation Abnormal (test code = 82627-9) [facility] Packed RBC (in units), 1 Units 2023-02-23 16:56:48 Test Item Value Reference Range Interpretation Comments Cross Match Result Compatible (test code = 4409) ISBT Blood Type Code 5100 (test code = 619247) Unit Blood Type (test O Pos code = 4410) Unit Number (test [id number] code = 4411) Blood Expiration Date [id number] & Time (test code = 306158) Status Information Issued (test code = 4412) Product Red Blood Cells Identification (test code = 4413) Product Code (test [id number] Performed at [facility] code = 4414) Laboratory Services - [facility] Blood [address] [place] [address] Free: [phone] A No. [id number] [facility] (in units), 1 Units 2023-02-23 16:56:48 Test Item Value Reference Range Interpretation Comments Cross Match Result Compatible (test code = 4409) ISBT Blood Type Code 5100 (test code = 348841) Unit Blood Type (test O Pos code = 4410) Unit Number (test [id number] code = 4411) Blood Expiration Date 189302790372 & Time (test code = 373182) Status Information Issued (test code = 4412) Product Red Blood Cells Identification (test code = 4413) Product Code (test [id number] Performed at [facility] code = 4414) Laboratory Services - [facility] Blood [address] [place] [address]Hmnb Free: [phone] A No. [id number] [facility] [id number] 14:32:51 Test Item Value Reference Range Interpretation Comments SPUTUM CULTURE 1+ Respiratory driss: (test code = 622-1) Commensal upper respiratory microorganisms only. Gram stain (test Occasional (Rare) code = 664-3) Mononuclear cells MIKAYLA (test code = Bacterial pathogens MIKAYLA) associated with lower respiratory infections were not identified, which include Pseudomonas aeruginosa and Staphylococcus aureus (MRSA or MSSA). [facility] [id number] 14:32:51 Test Item Value Reference Range Interpretation Comments SPUTUM CULTURE 1+ Respiratory driss: (test code = 622-1) Commensal upper respiratory microorganisms only. Gram stain (test Occasional (Rare) code = 664-3) Mononuclear cells MIKAYLA (test code = Bacterial pathogens MIKAYLA) associated with lower respiratory infections were not identified, which include Pseudomonas aeruginosa and Staphylococcus aureus (MRSA or MSSA). [facility] + Lactic [id number] 12:37:04 Test Item Value Reference Range Interpretation Comments PH (test code = 2) 7.38 7.35-7.45 PCO2 (test code = 31 See_Comment L [Automate d 4905191005) message] The sy stem which generated this result transmitted reference range : 35 - 45 mmHg. The reference range was not used to interpret this result as normal/abnormal . PO2 (test code = 96 See_Comment [Automated 8360141791) message] The sy stem which generated this result transmitted reference range : 80 - 100 mmHg. The reference range was not used to interpret this result as normal/abnormal . HCO3 (test code = 18 See_Comment L [Automate d 1272181258) message] The sy stem which generated this result transmitted reference range : 22 - 26 mEq/L. The reference range was not used to interpret this result as normal/abnormal . BE (test code = -6.6 See_Comment L [Automated 0753911067) message] The sy stem which generated this result transmitted reference range : -3.0 - 3.0 mEq/ L. The reference r kyra was not used to interpret this result as normal/abnormal . THB (test code = 6.7 g/dL 13.5-18.0 LL 3395314783) %O2HB (test code = 95.2 % 94.0-99.0 6984204417) %COHB ART (test code = 1.5 % 0.0-1.5 2572647908) %METHB ART (test code = 0.4 % 0.4-1.5 1640703100) VOL%O2 ART (test code = 9.2 % 15.0-23.0 L 2963517543) NA (test code = 137 mmol/L 135-145 5037711855) K+ (test code = 3.9 mmol/L 3.5-5.0 1451387323) AC CA IONZ (test code = 4.60 mg/dL 4.50-5.30 6442500619) GLUCOSE (test code = 144 mg/dL 70-110 H 9956122605) LACTIC ACID (test code 1.89 mmol/L 0.50-2.20 = 8709574358) Lab Interpretation Abnormal (test code = 61046-1) [facility] + Lactic Azgo8899-06-74 12:37:04 Test Item Value Reference Range Interpretation Comments PH (test code = 2) 7.38 7.35-7.45 PCO2 (test code = 31 See_Comment L [Automate d 5587384566) message] The sy stem which generated this result transmitted reference range : 35 - 45 mmHg. The reference range was not used to interpret this result as normal/abnormal . PO2 (test code = 96 See_Comment [Automated 2829680343) message] The sy stem which generated this result transmitted reference range : 80 - 100 mmHg. The reference range was not used to interpret this result as normal/abnormal . HCO3 (test code = 18 See_Comment L [Automate d 3582729382) message] The sy stem which generated this result transmitted reference range : 22 - 26 mEq/L. The reference range was not used to interpret this result as normal/abnormal . BE (test code = -6.6 See_Comment L [Automated 5643974123) message] The sy stem which generated this result transmitted reference range : -3.0 - 3.0 mEq/ L. The reference r kyra was not used to interpret this result as normal/abnormal . THB (test code = 6.7 g/dL 13.5-18.0 LL 0965648205) %O2HB (test code = 95.2 % 94.0-99.0 9779925573) %COHB ART (test code = 1.5 % 0.0-1.5 6292263668) %METHB ART (test code = 0.4 % 0.4-1.5 1490521849) VOL%O2 ART (test code = 9.2 % 15.0-23.0 L 4352271265) NA (test code = 137 mmol/L 135-145 1272023928) K+ (test code = 3.9 mmol/L 3.5-5.0 0346947820) AC CA IONZ (test code = 4.60 mg/dL 4.50-5.30 7826716837) GLUCOSE (test code = 144 mg/dL 70-110 H 4970053054) LACTIC ACID (test code 1.89 mmol/L 0.50-2.20 = 4334478483) Lab Interpretation Abnormal (test code = 51820-9) [facility] GLUCOSE (AUTOMATED)2023-02-23 08:18:41 Test Item Value Reference Range Interpretation Comments POCT GLU (test code = 4736817094) 155 mg/dL 70-110 H Lab Interpretation (test code = Abnormal 21597-6) [facility] GLUCOSE (AUTOMATED)2023-02-23 08:18:41 Test Item Value Reference Range Interpretation Comments POCT GLU (test code = 5043940311) 155 mg/dL 70-110 H Lab Interpretation (test code = Abnormal 52359-8) [facility] + Lactic [id number] 06:52:42 Test Item Value Reference Range Interpretation Comments PH (test code = 2) 7.30 7.35-7.45 L PCO2 (test code = 37 See_Comment [Automate d 4904750093) message] The sy stem which generated this result transmitted reference range : 35 - 45 mmHg. The reference range was not used to interpret this result as normal/abnormal . PO2 (test code = 201 See_Comment H [Automated 4954087232) message] The sy stem which generated this result transmitted reference range : 80 - 100 mmHg. The reference range was not used to interpret this result as normal/abnormal . HCO3 (test code = 17 See_Comment L [Automate d 8294529141) message] The sy stem which generated this result transmitted reference range : 22 - 26 mEq/L. The reference range was not used to interpret this result as normal/abnormal . BE (test code = -7.8 See_Comment L [Automated 4447188701) message] The sy stem which generated this result transmitted reference range : -3.0 - 3.0 mEq/ L. The reference r kyra was not used to interpret this result as normal/abnormal . THB (test code = 9.8 g/dL 13.5-18.0 L 2578444068) %O2HB (test code = 98.7 % 94.0-99.0 6944473957) %COHB ART (test code = 0.3 % 0.0-1.5 1444542310) %METHB ART (test code = 0.2 % 0.4-1.5 L 5027077599) VOL%O2 ART (test code = 14.0 % 15.0-23.0 L 4909929624) NA (test code = 137 mmol/L 135-145 7533547560) K+ (test code = 4.0 mmol/L 3.5-5.0 2688792465) AC CA IONZ (test code = 4.70 mg/dL 4.50-5.30 0761968977) GLUCOSE (test code = 146 mg/dL 70-110 H 7910365154) LACTIC ACID (test code 2.16 mmol/L 0.50-2.20 = 3623707507) Lab Interpretation Abnormal (test code = 30247-5) [facility] Lactic Aspv5260-29-63 06:52:42 Test Item Value Reference Range Interpretation Comments PH (test code = 2) 7.30 7.35-7.45 L PCO2 (test code = 37 See_Comment [Automate d 1378788470) message] The sy stem which generated this result transmitted reference range : 35 - 45 mmHg. The reference range was not used to interpret this result as normal/abnormal . PO2 (test code = 201 See_Comment H [Automated 7992991608) message] The sy stem which generated this result transmitted reference range : 80 - 100 mmHg. The reference range was not used to interpret this result as normal/abnormal . HCO3 (test code = 17 See_Comment L [Automate d 3440738832) message] The sy stem which generated this result transmitted reference range : 22 - 26 mEq/L. The reference range was not used to interpret this result as normal/abnormal . BE (test code = -7.8 See_Comment L [Automated 7508274105) message] The sy stem which generated this result transmitted reference range : -3.0 - 3.0 mEq/ L. The reference r kyra was not used to interpret this result as normal/abnormal . THB (test code = 9.8 g/dL 13.5-18.0 L 2613256928) %O2HB (test code = 98.7 % 94.0-99.0 8119591129) %COHB ART (test code = 0.3 % 0.0-1.5 5831079017) %METHB ART (test code = 0.2 % 0.4-1.5 L 6764087239) VOL%O2 ART (test code = 14.0 % 15.0-23.0 L 5074135155) NA (test code = 137 mmol/L 135-145 3346053467) K+ (test code = 4.0 mmol/L 3.5-5.0 5384531179) AC CA IONZ (test code = 4.70 mg/dL 4.50-5.30 2426335043) GLUCOSE (test code = 146 mg/dL 70-110 H 2873733870) LACTIC ACID (test code 2.16 mmol/L 0.50-2.20 = 3879502234) Lab Interpretation Abnormal (test code = 37613-1) [facility] - Draw within 30 minutes prior to 3RD dose.2023-02-23 05:26:32 Test Item Value Reference Range Interpretation Comments VANCO TROUGH (test code 5.5 ug/mL 10.0-20.0 L = 4067967277) MIKAYLA (test code = MIKAYLA) Toxic Range: ?>20 ug/mL 15-20 ug/mL is recommended for severe infection or when Vancomycin KEYONA is greater than or equal to 2. Lab Interpretation (test Abnormal code = 13837-5) [facility] - Draw within 30 minutes prior to 3RD dose.2023-02-23 05:26:32 Test Item Value Reference Range Interpretation Comments VANCO TROUGH (test code 5.5 ug/mL 10.0-20.0 L = 3496632737) MIKAYLA (test code = MIKAYLA) Toxic Range: ?>20 ug/mL 15-20 ug/mL is recommended for severe infection or when Vancomycin KEYONA is greater than or equal to 2. Lab Interpretation (test Abnormal code = 08713-2) [facility] - Draw within 30 minutes prior to 3RD dose.2023-02-23 05:26:32 Test Item Value Reference Range Interpretation Comments VANCO TROUGH (test code 5.5 ug/mL 10.0-20.0 L = 9471935739) MIKAYLA (test code = MIKAYLA) Toxic Range: ?>20 ug/mL 15-20 ug/mL is recommended for severe infection or when Vancomycin KEYONA is greater than or equal to 2. Lab Interpretation (test Abnormal code = 21280-7) [facility] - Draw within 30 minutes prior to 3RD dose.2023-02-23 05:26:32 Test Item Value Reference Range Interpretation Comments VANCO TROUGH (test code 5.5 ug/mL 10.0-20.0 L = 5870328483) MIKAYLA (test code = MIKAYLA) Toxic Range: ?>20 ug/mL 15-20 ug/mL is recommended for severe infection or when Vancomycin KEYONA is greater than or equal to 2. Lab Interpretation (test Abnormal code = 27940-0) [facility] GLUCOSE (AUTOMATED)2023-02-23 05:03:30 Test Item Value Reference Range Interpretation Comments POCT GLU (test code = 2810202177) 158 mg/dL 70-110 H Lab Interpretation (test code = Abnormal 90491-4) [facility] GLUCOSE (AUTOMATED)2023-02-23 05:03:30 Test Item Value Reference Range Interpretation Comments POCT GLU (test code = 0264463068) 158 mg/dL 70-110 H Lab Interpretation (test code = Abnormal 95439-5) [facility] (for use with Heparin Infusion)2023-02-23 04:20:43 Test Item Value Reference Range Interpretation Comments APTT Patient (test code 53 See_Comment H [Au tomated message] = 3173-2) The system [employer] generated this result transmitted ref erence range: 26 - 36 Seconds. The reference range was not used to int erpret this result as normal/abnormal . Lab Interpretation (test Abnormal code = 76804-4) [facility] (for use with Heparin Infusion)2023-02-23 04:20:43 Test Item Value Reference Range Interpretation Comments APTT Patient (test code 53 See_Comment H [Au tomated message] = 3173-2) The system [employer] generated this result transmitted ref erence range: 26 - 36 Seconds. The reference range was not used to int erpret this result as normal/abnormal . Lab Interpretation (test Abnormal code = 78513-8) [facility] + Lactic [id number] 00:51:06 Test Item Value Reference Range Interpretation Comments PH (test code = 2) 7.29 7.35-7.45 L PCO2 (test code = 38 See_Comment [Automate d 0293309011) message] The sy stem which generated this result transmitted reference range : 35 - 45 mmHg. The reference range was not used to interpret this result as normal/abnormal . PO2 (test code = 231 See_Comment H [Automated 8990809230) message] The sy stem which generated this result transmitted reference range : 80 - 100 mmHg. The reference range was not used to interpret this result as normal/abnormal . HCO3 (test code = 18 See_Comment L [Automate d 7606791688) message] The sy stem which generated this result transmitted reference range : 22 - 26 mEq/L. The reference range was not used to interpret this result as normal/abnormal . BE (test code = -8.0 See_Comment L [Automated 6036352267) message] The sy stem which generated this result transmitted reference range : -3.0 - 3.0 mEq/ L. The reference r kyra was not used to interpret this result as normal/abnormal . THB (test code = 12.2 g/dL 13.5-18.0 L 3365029490) %O2HB (test code = 98.3 % 94.0-99.0 1037687488) %COHB ART (test code = 0.9 % 0.0-1.5 3858865859) %METHB ART (test code = 0.3 % 0.4-1.5 L 6226691848) VOL%O2 ART (test code = 17.4 % 15.0-23.0 4193110447) NA (test code = 137 mmol/L 135-145 2323564106) K+ (test code = 4.5 mmol/L 3.5-5.0 8449219089) AC CA IONZ (test code = 4.60 mg/dL 4.50-5.30 0946896778) GLUCOSE (test code = 156 mg/dL 70-110 H 9962740301) LACTIC ACID (test code 2.56 mmol/L 0.50-2.20 H = 6036605562) Lab Interpretation Abnormal (test code = 42860-8) [facility] + Lactic Tglt3812-71-35 00:51:06 Test Item Value Reference Range Interpretation Comments PH (test code = 2) 7.29 7.35-7.45 L PCO2 (test code = 38 See_Comment [Automate d [id number]) message] The sy stem which generated this result transmitted reference range : 35 - 45 mmHg. The reference range was not used to interpret this result as normal/abnormal . PO2 (test code = 231 See_Comment H [Automated [id number]) message] The sy stem which generated this result transmitted reference range : 80 - 100 mmHg. The reference range was not used to interpret this result as normal/abnormal . HCO3 (test code = 18 See_Comment L [Automate d [id number]) message] The sy stem which generated this result transmitted reference range : 22 - 26 mEq/L. The reference range was not used to interpret this result as normal/abnormal . BE (test code = -8.0 See_Comment L [Automated [id number]) message] The sy stem which generated this result transmitted reference range : -3.0 - 3.0 mEq/ L. The reference r kyra was not used to interpret this result as normal/abnormal . THB (test code = 12.2 g/dL 13.5-18.0 L 6379254659) %O2HB (test code = 98.3 % 94.0-99.0 8742289249) %COHB ART (test code = 0.9 % 0.0-1.5 9871994055) %METHB ART (test code = 0.3 % 0.4-1.5 L 5446873660) VOL%O2 ART (test code = 17.4 % 15.0-23.0 8555718401) NA (test code = 137 mmol/L 135-145 5055392457) K+ (test code = 4.5 mmol/L 3.5-5.0 2918309362) AC CA IONZ (test code = 4.60 mg/dL 4.50-5.30 5898253753) GLUCOSE (test code = 156 mg/dL 70-110 H 6816203821) LACTIC ACID (test code 2.56 mmol/L 0.50-2.20 H = 2057362814) Lab Interpretation Abnormal (test code = 33238-4) [facility] Units 2023-02-22 22:08:32 Test Item Value Reference Range Interpretation Comments Cross Match Result Compatible (test code = 4409) ISBT Blood Type Code 5100 (test code = 355696) Unit Blood Type (test O Pos code = 4410) Unit Number (test [id number] code = 4411) Blood Expiration Date [id number] & Time (test code = 096810) Status Information Issued (test code = 4412) Product Red Blood Cells Identification (test code = 4413) Product Code (test [id number] Performed at [facility] code = 4414) Laboratory Services - [facility] Blood [address] [place] [id number] Free: [phone] A No. [id number] [facility] ([facility]), 1 Units 2023-02-22 22:08:32 Test Item Value Reference Range Interpretation Comments Cross Match Result Compatible (test code = 4409) ISBT Blood Type Code 5100 (test code = 758407) Unit Blood Type (test O Pos code = 4410) Unit Number (test [id number] code = 4411) Blood Expiration Date [id number] & Time (test code = 395507) Status Information Issued (test code = 4412) Product Red Blood Cells Identification (test code = 4413) Product Code (test [id number] Performed at [facility] code = 4414) Laboratory Services - [facility] Blood [address] [place] [id number] Free: [phone] A No. [id number] [facility] Lactic [id number] 20:48:51 Test Item Value Reference Range Interpretation Comments PH (test code = 2) 7.23 7.35-7.45 L PCO2 (test code = 39 See_Comment [Automate d [id number]) message] The sy stem which generated this result transmitted reference range : 35 - 45 mmHg. The reference range was not used to interpret this result as normal/abnormal . PO2 (test code = 57 See_Comment L [Automated 5182430615) message] The sy stem which generated this result transmitted reference range : 80 - 100 mmHg. The reference range was not used to interpret this result as normal/abnormal . HCO3 (test code = 16 See_Comment L [Automate d 0500185402) message] The sy stem which generated this result transmitted reference range : 22 - 26 mEq/L. The reference range was not used to interpret this result as normal/abnormal . BE (test code = -10.9 See_Comment L [Automated 4770228053) message] The sy stem which generated this result transmitted reference range : -3.0 - 3.0 mEq/ L. The reference r kyra was not used to interpret this result as normal/abnormal . THB (test code = 9.3 g/dL 13.5-18.0 L 3643405177) %O2HB (test code = 80.1 % 94.0-99.0 L 1626527557) %COHB ART (test code = 0.6 % 0.0-1.5 9891883149) %METHB ART (test code = 0.3 % 0.4-1.5 L 9704395395) VOL%O2 ART (test code = 10.5 % 15.0-23.0 L 7449546601) NA (test code = 138 mmol/L 135-145 9973592314) K+ (test code = 5.4 mmol/L 3.5-5.0 H 2398451450) AC CA IONZ (test code = 4.50 mg/dL 4.50-5.30 9782320870) GLUCOSE (test code = 172 mg/dL 70-110 H 9657445307) LACTIC ACID (test code 4.47 mmol/L 0.50-2.20 H = 6316210781) Lab Interpretation Abnormal (test code = 80471-8) [facility] Lactic [id number] 20:48:51 Test Item Value Reference Range Interpretation Comments PH (test code = 2) 7.23 7.35-7.45 L PCO2 (test code = 39 See_Comment [Automate d 9844486175) message] The sy stem which generated this result transmitted reference range : 35 - 45 mmHg. The reference range was not used to interpret this result as normal/abnormal . PO2 (test code = 57 See_Comment L [Automated 4821154702) message] The sy stem which generated this result transmitted reference range : 80 - 100 mmHg. The reference range was not used to interpret this result as normal/abnormal . HCO3 (test code = 16 See_Comment L [Automate d 5257753126) message] The sy stem which generated this result transmitted reference range : 22 - 26 mEq/L. The reference range was not used to interpret this result as normal/abnormal . BE (test code = -10.9 See_Comment L [Automated 2715043737) message] The sy stem which generated this result transmitted reference range : -3.0 - 3.0 mEq/ L. The reference r kyra was not used to interpret this result as normal/abnormal . THB (test code = 9.3 g/dL 13.5-18.0 L 0561270467) %O2HB (test code = 80.1 % 94.0-99.0 L 9936650777) %COHB ART (test code = 0.6 % 0.0-1.5 1000316402) %METHB ART (test code = 0.3 % 0.4-1.5 L 5576404617) VOL%O2 ART (test code = 10.5 % 15.0-23.0 L 2760436711) NA (test code = 138 mmol/L 135-145 1621961252) K+ (test code = 5.4 mmol/L 3.5-5.0 H 4787039023) AC CA IONZ (test code = 4.50 mg/dL 4.50-5.30 8003352506) GLUCOSE (test code = 172 mg/dL 70-110 H 5096876972) LACTIC ACID (test code 4.47 mmol/L 0.50-2.20 H = 7345607954) Lab Interpretation Abnormal (test code = 74916-8) [facility] Lactic [id number] 19:10:10 Test Item Value Reference Range Interpretation Comments PH (test code = 2) 7.35 7.35-7.45 PCO2 (test code = 30 See_Comment L [Automate d 6542023313) message] The sy stem which generated this result transmitted reference range : 35 - 45 mmHg. The reference range was not used to interpret this result as normal/abnormal . PO2 (test code = 168 See_Comment H [Automated 9560733866) message] The sy stem which generated this result transmitted reference range : 80 - 100 mmHg. The reference range was not used to interpret this result as normal/abnormal . HCO3 (test code = 16 See_Comment L [Automate d 9947555227) message] The sy stem which generated this result transmitted reference range : 22 - 26 mEq/L. The reference range was not used to interpret this result as normal/abnormal . BE (test code = -8.3 See_Comment L [Automated 2064333218) message] The sy stem which generated this result transmitted reference range : -3.0 - 3.0 mEq/ L. The reference r kyra was not used to interpret this result as normal/abnormal . THB (test code = 10.5 g/dL 13.5-18.0 L 9618254239) %O2HB (test code = 98.5 % 94.0-99.0 0295443008) %COHB ART (test code = 0.5 % 0.0-1.5 6817017321) %METHB ART (test code = 0.1 % 0.4-1.5 L 7807875337) VOL%O2 ART (test code = 14.9 % 15.0-23.0 L 0952564861) NA (test code = 138 mmol/L 135-145 1199991436) K+ (test code = 4.8 mmol/L 3.5-5.0 1292619011) AC CA IONZ (test code = 4.30 mg/dL 4.50-5.30 L 3315160401) GLUCOSE (test code = 161 mg/dL 70-110 H 3623288328) LACTIC ACID (test code 2.44 mmol/L 0.50-2.20 H = 0877137213) Lab Interpretation Abnormal (test code = 26737-2) [facility] + Lactic [id number] 19:10:10 Test Item Value Reference Range Interpretation Comments PH (test code = 2) 7.35 7.35-7.45 PCO2 (test code = 30 See_Comment L [Automate d 9008273842) message] The sy stem which generated this result transmitted reference range : 35 - 45 mmHg. The reference range was not used to interpret this result as normal/abnormal . PO2 (test code = 168 See_Comment H [Automated 2328615525) message] The sy stem which generated this result transmitted reference range : 80 - 100 mmHg. The reference range was not used to interpret this result as normal/abnormal . HCO3 (test code = 16 See_Comment L [Automate d 7783323586) message] The sy stem which generated this result transmitted reference range : 22 - 26 mEq/L. The reference range was not used to interpret this result as normal/abnormal . BE (test code = -8.3 See_Comment L [Automated 1348870835) message] The sy stem which generated this result transmitted reference range : -3.0 - 3.0 mEq/ L. The reference r kyra was not used to interpret this result as normal/abnormal . THB (test code = 10.5 g/dL 13.5-18.0 L 7574505311) %O2HB (test code = 98.5 % 94.0-99.0 2553318775) %COHB ART (test code = 0.5 % 0.0-1.5 6209367242) %METHB ART (test code = 0.1 % 0.4-1.5 L 9000175261) VOL%O2 ART (test code = 14.9 % 15.0-23.0 L 1640659667) NA (test code = 138 mmol/L 135-145 2290371737) K+ (test code = 4.8 mmol/L 3.5-5.0 6097405137) AC CA IONZ (test code = 4.30 mg/dL 4.50-5.30 L 3697147010) GLUCOSE (test code = 161 mg/dL 70-110 H 8083665733) LACTIC ACID (test code 2.44 mmol/L 0.50-2.20 H = 1300715669) Lab Interpretation Abnormal (test code = 61209-7) [facility] GLUCOSE (AUTOMATED)2023-02-22 16:56:42 Test Item Value Reference Range Interpretation Comments POCT GLU (test code = 2766305628) 128 mg/dL 70-110 H Lab Interpretation (test code = Abnormal 74599-7) [facility] GLUCOSE (AUTOMATED)2023-02-22 16:56:42 Test Item Value Reference Range Interpretation Comments POCT GLU (test code = 8377554569) 128 mg/dL 70-110 H Lab Interpretation (test code = Abnormal 48866-2) [facility] + Lactic [id number] 13:12:37 Test Item Value Reference Range Interpretation Comments PH (test code = 2) 7.36 7.35-7.45 PCO2 (test code = 30 See_Comment L [Automate d 9197622638) message] The sy stem which generated this result transmitted reference range : 35 - 45 mmHg. The reference range was not used to interpret this result as normal/abnormal . PO2 (test code = 154 See_Comment H [Automated 0767968583) message] The sy stem which generated this result transmitted reference range : 80 - 100 mmHg. The reference range was not used to interpret this result as normal/abnormal . HCO3 (test code = 16 See_Comment L [Automate d 3919916646) message] The sy stem which generated this result transmitted reference range : 22 - 26 mEq/L. The reference range was not used to interpret this result as normal/abnormal . BE (test code = -8.0 See_Comment L [Automated 6635560790) message] The sy stem which generated this result transmitted reference range : -3.0 - 3.0 mEq/ L. The reference r kyra was not used to interpret this result as normal/abnormal . THB (test code = 8.2 g/dL 13.5-18.0 LL 2485751012) %O2HB (test code = 97.5 % 94.0-99.0 8121344898) %COHB ART (test code = 1.3 % 0.0-1.5 0380699129) %METHB ART (test code = 0.3 % 0.4-1.5 L 4535923807) VOL%O2 ART (test code = 11.6 % 15.0-23.0 L 2204084878) NA (test code = 135 mmol/L 135-145 9996411115) K+ (test code = 4.3 mmol/L 3.5-5.0 2842567072) AC CA IONZ (test code = 4.50 mg/dL 4.50-5.30 2165577973) GLUCOSE (test code = 202 mg/dL 70-110 H 8857200164) LACTIC ACID (test code 3.03 mmol/L 0.50-2.20 H = 5085952662) Lab Interpretation Abnormal (test code = 04377-8) [facility] Lactic [id number] 13:12:37 Test Item Value Reference Range Interpretation Comments PH (test code = 2) 7.36 7.35-7.45 PCO2 (test code = 30 See_Comment L [Automate d 7607323497) message] The sy stem which generated this result transmitted reference range : 35 - 45 mmHg. The reference range was not used to interpret this result as normal/abnormal . PO2 (test code = 154 See_Comment H [Automated 2875963713) message] The sy stem which generated this result transmitted reference range : 80 - 100 mmHg. The reference range was not used to interpret this result as normal/abnormal . HCO3 (test code = 16 See_Comment L [Automate d 3102506018) message] The sy stem which generated this result transmitted reference range : 22 - 26 mEq/L. The reference range was not used to interpret this result as normal/abnormal . BE (test code = -8.0 See_Comment L [Automated 4975800454) message] The sy stem which generated this result transmitted reference range : -3.0 - 3.0 mEq/ L. The reference r kyra was not used to interpret this result as normal/abnormal . THB (test code = 8.2 g/dL 13.5-18.0 LL 9392098358) %O2HB (test code = 97.5 % 94.0-99.0 0148831033) %COHB ART (test code = 1.3 % 0.0-1.5 2338025435) %METHB ART (test code = 0.3 % 0.4-1.5 L 8108268115) VOL%O2 ART (test code = 11.6 % 15.0-23.0 L 1032840526) NA (test code = 135 mmol/L 135-145 6480506710) K+ (test code = 4.3 mmol/L 3.5-5.0 5485951544) AC CA IONZ (test code = 4.50 mg/dL 4.50-5.30 9686902414) GLUCOSE (test code = 202 mg/dL 70-110 H 5793352017) LACTIC ACID (test code 3.03 mmol/L 0.50-2.20 H = 0540266628) Lab Interpretation Abnormal (test code = 36951-9) [facility] + Lactic Eioo4434-10-89 10:36:28 Test Item Value Reference Range Interpretation Comments PH (test code = 2) 7.32 7.35-7.45 L PCO2 (test code = 30 See_Comment L [Automate d 2421351699) message] The sy stem which generated this result transmitted reference range : 35 - 45 mmHg. The reference range was not used to interpret this result as normal/abnormal . PO2 (test code = 122 See_Comment H [Automated 1487586101) message] The sy stem which generated this result transmitted reference range : 80 - 100 mmHg. The reference range was not used to interpret this result as normal/abnormal . HCO3 (test code = 15 See_Comment L [Automate d 7253797551) message] The sy stem which generated this result transmitted reference range : 22 - 26 mEq/L. The reference range was not used to interpret this result as normal/abnormal . BE (test code = -9.9 See_Comment L [Automated 4651209721) message] The sy stem which generated this result transmitted reference range : -3.0 - 3.0 mEq/ L. The reference r kyra was not used to interpret this result as normal/abnormal . THB (test code = 8.7 g/dL 13.5-18.0 L 0470983066) %O2HB (test code = 97.3 % 94.0-99.0 9630272598) %COHB ART (test code = 0.8 % 0.0-1.5 8269102000) %METHB ART (test code = 0.2 % 0.4-1.5 L 0366910026) VOL%O2 ART (test code = 12.1 % 15.0-23.0 L 4064199844) NA (test code = 137 mmol/L 135-145 0920124992) K+ (test code = 5.0 mmol/L 3.5-5.0 7574420939) AC CA IONZ (test code = 4.50 mg/dL 4.50-5.30 8553669102) GLUCOSE (test code = 141 mg/dL 70-110 H 8702456978) LACTIC ACID (test code 4.51 mmol/L 0.50-2.20 H = 7751622026) Lab Interpretation Abnormal (test code = 10260-8) [facility] + Lactic [id number] 10:36:28 Test Item Value Reference Range Interpretation Comments PH (test code = 2) 7.32 7.35-7.45 L PCO2 (test code = 30 See_Comment L [Automate d 7446629296) message] The sy stem which generated this result transmitted reference range : 35 - 45 mmHg. The reference range was not used to interpret this result as normal/abnormal . PO2 (test code = 122 See_Comment H [Automated 9905134219) message] The sy stem which generated this result transmitted reference range : 80 - 100 mmHg. The reference range was not used to interpret this result as normal/abnormal . HCO3 (test code = 15 See_Comment L [Automate d 4342923942) message] The sy stem which generated this result transmitted reference range : 22 - 26 mEq/L. The reference range was not used to interpret this result as normal/abnormal . BE (test code = -9.9 See_Comment L [Automated 5430929743) message] The sy stem which generated this result transmitted reference range : -3.0 - 3.0 mEq/ L. The reference r kyra was not used to interpret this result as normal/abnormal . THB (test code = 8.7 g/dL 13.5-18.0 L 8333479084) %O2HB (test code = 97.3 % 94.0-99.0 7050203603) %COHB ART (test code = 0.8 % 0.0-1.5 8022454648) %METHB ART (test code = 0.2 % 0.4-1.5 L 8078119456) VOL%O2 ART (test code = 12.1 % 15.0-23.0 L 8350918813) NA (test code = 137 mmol/L 135-145 5234068265) K+ (test code = 5.0 mmol/L 3.5-5.0 0729053051) AC CA IONZ (test code = 4.50 mg/dL 4.50-5.30 3256710183) GLUCOSE (test code = 141 mg/dL 70-110 H 0440690421) LACTIC ACID (test code 4.51 mmol/L 0.50-2.20 H = 0758265896) Lab Interpretation Abnormal (test code = 49510-4) [facility] + Lactic [id number] 08:18:47 Test Item Value Reference Range Interpretation Comments PH (test code = 2) 7.22 7.35-7.45 L PCO2 (test code = 33 See_Comment L [Automate d 5116972895) message] The sy stem which generated this result transmitted reference range : 35 - 45 mmHg. The reference range was not used to interpret this result as normal/abnormal . PO2 (test code = 153 See_Comment H [Automated 1650800051) message] The sy stem which generated this result transmitted reference range : 80 - 100 mmHg. The reference range was not used to interpret this result as normal/abnormal . HCO3 (test code = 13 See_Comment L [Automate d 7581014305) message] The sy stem which generated this result transmitted reference range : 22 - 26 mEq/L. The reference range was not used to interpret this result as normal/abnormal . BE (test code = -13.2 See_Comment L [Automated 9724083473) message] The sy stem which generated this result transmitted reference range : -3.0 - 3.0 mEq/ L. The reference r kyra was not used to interpret this result as normal/abnormal . THB (test code = 8.8 g/dL 13.5-18.0 L 1124841278) %O2HB (test code = 97.8 % 94.0-99.0 9542439987) %COHB ART (test code = 0.6 % 0.0-1.5 8140786360) %METHB ART (test code = 0.3 % 0.4-1.5 L 2881569109) VOL%O2 ART (test code = 12.4 % 15.0-23.0 L 4757145006) NA (test code = 136 mmol/L 135-145 4176732534) K+ (test code = 5.3 mmol/L 3.5-5.0 H 9157828176) AC CA IONZ (test code = 4.50 mg/dL 4.50-5.30 6364242325) GLUCOSE (test code = 137 mg/dL 70-110 H 2506502597) LACTIC ACID (test code 7.92 mmol/L 0.50-2.20 H = 5288418200) Lab Interpretation Abnormal (test code = 44271-3) [facility] Lactic [id number] 08:18:47 Test Item Value Reference Range Interpretation Comments PH (test code = 2) 7.22 7.35-7.45 L PCO2 (test code = 33 See_Comment L [Automate d 6394544092) message] The sy stem which generated this result transmitted reference range : 35 - 45 mmHg. The reference range was not used to interpret this result as normal/abnormal . PO2 (test code = 153 See_Comment H [Automated 8945950608) message] The sy stem which generated this result transmitted reference range : 80 - 100 mmHg. The reference range was not used to interpret this result as normal/abnormal . HCO3 (test code = 13 See_Comment L [Automate d 5934730293) message] The sy stem which generated this result transmitted reference range : 22 - 26 mEq/L. The reference range was not used to interpret this result as normal/abnormal . BE (test code = -13.2 See_Comment L [Automated 8120314546) message] The sy stem which generated this result transmitted reference range : -3.0 - 3.0 mEq/ L. The reference r kyra was not used to interpret this result as normal/abnormal . THB (test code = 8.8 g/dL 13.5-18.0 L 7792810170) %O2HB (test code = 97.8 % 94.0-99.0 6490303297) %COHB ART (test code = 0.6 % 0.0-1.5 2661711393) %METHB ART (test code = 0.3 % 0.4-1.5 L 9289837667) VOL%O2 ART (test code = 12.4 % 15.0-23.0 L 5236826536) NA (test code = 136 mmol/L 135-145 0170302935) K+ (test code = 5.3 mmol/L 3.5-5.0 H 7624495446) AC CA IONZ (test code = 4.50 mg/dL 4.50-5.30 1753031422) GLUCOSE (test code = 137 mg/dL 70-110 H 8495704938) LACTIC ACID (test code 7.92 mmol/L 0.50-2.20 H = 5180939325) Lab Interpretation Abnormal (test code = 81556-1) [facility] Lactic [id number] 06:31:07 Test Item Value Reference Range Interpretation Comments PH (test code = 2) 7.23 7.35-7.45 L PCO2 (test code = 32 See_Comment L [Automate d 0272186111) message] The sy stem which generated this result transmitted reference range : 35 - 45 mmHg. The reference range was not used to interpret this result as normal/abnormal . PO2 (test code = 112 See_Comment H [Automated 2077388591) message] The sy stem which generated this result transmitted reference range : 80 - 100 mmHg. The reference range was not used to interpret this result as normal/abnormal . HCO3 (test code = 13 See_Comment L [Automate d 0221337405) message] The sy stem which generated this result transmitted reference range : 22 - 26 mEq/L. The reference range was not used to interpret this result as normal/abnormal . BE (test code = -13.3 See_Comment L [Automated 5601626432) message] The sy stem which generated this result transmitted reference range : -3.0 - 3.0 mEq/ L. The reference r kyra was not used to interpret this result as normal/abnormal . THB (test code = 8.8 g/dL 13.5-18.0 L 4091511995) %O2HB (test code = 96.1 % 94.0-99.0 1015102452) %COHB ART (test code = 0.7 % 0.0-1.5 8423118568) %METHB ART (test code = 0.2 % 0.4-1.5 L 4006351421) VOL%O2 ART (test code = 12.1 % 15.0-23.0 L 3380624126) NA (test code = 137 mmol/L 135-145 7207281665) K+ (test code = 5.2 mmol/L 3.5-5.0 H 0510560010) AC CA IONZ (test code = 4.50 mg/dL 4.50-5.30 8624901537) GLUCOSE (test code = 70 mg/dL 70-110 5088486254) LACTIC ACID (test code 7.57 mmol/L 0.50-2.20 H = 1957769594) Lab Interpretation Abnormal (test code = 74514-8) [facility] Lactic [id number] 06:31:07 Test Item Value Reference Range Interpretation Comments PH (test code = 2) 7.23 7.35-7.45 L PCO2 (test code = 32 See_Comment L [Automate d 4555569855) message] The sy stem which generated this result transmitted reference range : 35 - 45 mmHg. The reference range was not used to interpret this result as normal/abnormal . PO2 (test code = 112 See_Comment H [Automated 1869330817) message] The sy stem which generated this result transmitted reference range : 80 - 100 mmHg. The reference range was not used to interpret this result as normal/abnormal . HCO3 (test code = 13 See_Comment L [Automate d 6606369163) message] The sy stem which generated this result transmitted reference range : 22 - 26 mEq/L. The reference range was not used to interpret this result as normal/abnormal . BE (test code = -13.3 See_Comment L [Automated 8641864434) message] The sy stem which generated this result transmitted reference range : -3.0 - 3.0 mEq/ L. The reference r kyra was not used to interpret this result as normal/abnormal . THB (test code = 8.8 g/dL 13.5-18.0 L 7158584403) %O2HB (test code = 96.1 % 94.0-99.0 8977695544) %COHB ART (test code = 0.7 % 0.0-1.5 9623371063) %METHB ART (test code = 0.2 % 0.4-1.5 L 9915998891) VOL%O2 ART (test code = 12.1 % 15.0-23.0 L 8515435397) NA (test code = 137 mmol/L 135-145 5043972946) K+ (test code = 5.2 mmol/L 3.5-5.0 H 1150950144) AC CA IONZ (test code = 4.50 mg/dL 4.50-5.30 0172806417) GLUCOSE (test code = 70 mg/dL 70-110 6304503828) LACTIC ACID (test code 7.57 mmol/L 0.50-2.20 H = 3958550357) Lab Interpretation Abnormal (test code = 86074-8) [facility] METABOLIC PANEL (NA, K, CL, CO2, GLUCOSE, BUN, CREATININE, CA)2023-02-22 05:14:48 Test Item Value Reference Range Interpretation Comments NA (test code = 140 mmol/L 135-145 3818510909) K (test code = 5.2 mmol/L 3.5-5.0 H 2797870525) CL (test code = 106 mmol/L 98-108 6787457230) CO2 TOTAL (test code = 15 mmol/L 23-31 L 0484052487) AGAP (test code = 19 2-16 H 1308122120) BUN (test code = 73 mg/dL 7-23 H 4150427225) GLUCOSE (test code = 91 mg/dL 70-110 1800138793) CREATININE (test code = 3.13 mg/dL 0.60-1.25 H 8266485291) CALCIUM (test code = 7.9 mg/dL 8.6-10.6 L 4345200976) eGFR (test code = 20.4 mL/min/1.73m2 5533093124) MIKAYLA (test code = MIKAYLA) [employer] Filtration Rate (GFR) and Staging of Kidney Disease* + --+ --+ ------+| GFR (mL/min/1.73 m2) ?| With Kidney Damage ?| ?Without Kidney Damage+ --------+ --------+ +| ?>90 ?| ?Stage one ?| ? Normal ?+ ---+ ---+ -------+| ?60-89 ?| ?Stage two ?| ? Decreased GFR ? + --+ --+ ------+| ?30-59 ?| ?Stage three ?| ? Stage three ? + --+ --+ ------+| ?15-29 ?| ?Stage four ? | ? Stage four ?+ ---+ ---+ -------+| ?<15 (or dialysis) ? ?| ?Stage five ? | ? Stage five ?+ ---+ ---+ -------+ *Each stage assumes the associated GFR level has been in effect for at least three months. ?Stages 1 to 5, with or without kidney disease, indicate chronic kidney disease. Notes: Determination of stages one and two (with eGFR >59mL/min/1.73 m2) requires estimation of kidney damage for at least three months as defined by structural or functional abnormalities of the kidney, manifested by either:Pathological abnormalities or Markers of kidney damage (including abnormalities in the composition of the blood or urine or abnormalities in imaging tests). Lab Interpretation Abnormal (test code = 86815-8) [facility] METABOLIC PANEL (NA, K, CL, CO2, GLUCOSE, BUN, CREATININE, CA)2023-02-22 05:14:48 Test Item Value Reference Range Interpretation Comments NA (test code = 140 mmol/L 135-145 5906907400) K (test code = 5.2 mmol/L 3.5-5.0 H 3662909493) CL (test code = 106 mmol/L 98-108 2041937261) CO2 TOTAL (test code = 15 mmol/L 23-31 L 2393675384) AGAP (test code = 19 2-16 H 6761943974) BUN (test code = 73 mg/dL 7-23 H 1350589837) GLUCOSE (test code = 91 mg/dL 70-110 5691312718) CREATININE (test code = 3.13 mg/dL 0.60-1.25 H 5873178620) CALCIUM (test code = 7.9 mg/dL 8.6-10.6 L 9547023884) eGFR (test code = 20.4 mL/min/1.73m2 1809029023) MIKAYLA (test code = MIKAYLA) Association of Glomerular Filtration Rate (GFR) and Staging of Kidney Disease* + --+ --+ ------+| GFR (mL/min/1.73 m2) ?| With Kidney Damage ?| ?Without Kidney Damage+ --------+ --------+ +| ?>90 ?| ?Stage one ?| ? Normal ?+ ---+ ---+ -------+| ?60-89 ?| ?Stage two ?| ? Decreased GFR ? + --+ --+ ------+| ?30-59 ?| ?Stage three ?| ? Stage three ? + --+ --+ ------+| ?15-29 ?| ?Stage four ? | ? Stage four ?+ ---+ ---+ -------+| ?<15 (or dialysis) ? ?| ?Stage five ? | ? Stage five ?+ ---+ ---+ -------+ *Each stage assumes the associated GFR level has been in effect for at least three months. ?Stages 1 to 5, with or without kidney disease, indicate chronic kidney disease. Notes: Determination of stages one and two (with eGFR >59mL/min/1.73 m2) requires estimation of kidney damage for at least three months as defined by structural or functional abnormalities of the kidney, manifested by either:Pathological abnormalities or Markers of kidney damage (including abnormalities in the composition of the blood or urine or abnormalities in imaging tests). Lab Interpretation Abnormal (test code = 72545-6) [facility] [id number] 04:52:35 Test Item Value Reference Range Interpretation Comments PH (test code = 2) 7.18 7.35-7.45 LL PCO2 (test code = 37 See_Comment [Automate d [id number]) message] The sy stem which generated this result transmitted reference range : 35 - 45 mmHg. The reference range was not used to interpret this result as normal/abnormal . PO2 (test code = 231 See_Comment H [Automated [id number]) message] The sy stem which generated this result transmitted reference range : 80 - 100 mmHg. The reference range was not used to interpret this result as normal/abnormal . HCO3 (test code = 14 See_Comment L [Automate d 4426085438) message] The sy stem which generated this result transmitted reference range : 22 - 26 mEq/L. The reference range was not used to interpret this result as normal/abnormal . BE (test code = -13.9 See_Comment L [Automated 6925574674) message] The sy stem which generated this result transmitted reference range : -3.0 - 3.0 mEq/ L. The reference r krya was not used to interpret this result as normal/abnormal . THB (test code = 8.6 g/dL 13.5-18.0 L 2259464514) %O2HB (test code = 98.6 % 94.0-99.0 0085521043) %COHB ART (test code = 0.7 % 0.0-1.5 4776770585) %METHB ART (test code = 0.2 % 0.4-1.5 L 7300364476) VOL%O2 ART (test code = 12.5 % 15.0-23.0 L 0824426032) NA (test code = 138 mmol/L 135-145 2728920027) K+ (test code = 5.1 mmol/L 3.5-5.0 H 6387320226) AC CA IONZ (test code = 4.60 mg/dL 4.50-5.30 4313356751) GLUCOSE (test code = 83 mg/dL 70-110 7140188159) LACTIC ACID (test code 6.93 mmol/L 0.50-2.20 H = 0263771606) Lab Interpretation Abnormal (test code = 52566-3) [facility] Lactic [id number] 04:52:35 Test Item Value Reference Range Interpretation Comments PH (test code = 2) 7.18 7.35-7.45 LL PCO2 (test code = 37 See_Comment [Automate d 8796359979) message] The sy stem which generated this result transmitted reference range : 35 - 45 mmHg. The reference range was not used to interpret this result as normal/abnormal . PO2 (test code = 231 See_Comment H [Automated 1987325799) message] The sy stem which generated this result transmitted reference range : 80 - 100 mmHg. The reference range was not used to interpret this result as normal/abnormal . HCO3 (test code = 14 See_Comment L [Automate d 5757343140) message] The sy stem which generated this result transmitted reference range : 22 - 26 mEq/L. The reference range was not used to interpret this result as normal/abnormal . BE (test code = -13.9 See_Comment L [Automated 6128911492) message] The sy stem which generated this result transmitted reference range : -3.0 - 3.0 mEq/ L. The reference r kyra was not used to interpret this result as normal/abnormal . THB (test code = 8.6 g/dL 13.5-18.0 L 4158226229) %O2HB (test code = 98.6 % 94.0-99.0 0573754128) %COHB ART (test code = 0.7 % 0.0-1.5 1167857526) %METHB ART (test code = 0.2 % 0.4-1.5 L 0211883157) VOL%O2 ART (test code = 12.5 % 15.0-23.0 L 5554845556) NA (test code = 138 mmol/L 135-145 0695638815) K+ (test code = 5.1 mmol/L 3.5-5.0 H 6771316439) AC CA IONZ (test code = 4.60 mg/dL 4.50-5.30 2594874557) GLUCOSE (test code = 83 mg/dL 70-110 8051493422) LACTIC ACID (test code 6.93 mmol/L 0.50-2.20 H = 4652306029) Lab Interpretation Abnormal (test code = 43599-9) [facility] GLUCOSE (AUTOMATED)2023-02-22 03:37:43 Test Item Value Reference Range Interpretation Comments POCT GLU (test code = 1057019881) 112 mg/dL 70-110 H Lab Interpretation (test code = Abnormal 13727-3) [facility] GLUCOSE (AUTOMATED)2023-02-22 03:37:43 Test Item Value Reference Range Interpretation Comments POCT GLU (test code = 0096419044) 112 mg/dL 70-110 H Lab Interpretation (test code = Abnormal 62797-6) [facility] Lactic [id number] 03:14:44 Test Item Value Reference Range Interpretation Comments PH (test code = 2) 7.29 7.35-7.45 L PCO2 (test code = 27 See_Comment L [Automate d 5489767724) message] The sy stem which generated this result transmitted reference range : 35 - 45 mmHg. The reference range was not used to interpret this result as normal/abnormal . PO2 (test code = 151 See_Comment H [Automated 0013944091) message] The sy stem which generated this result transmitted reference range : 80 - 100 mmHg. The reference range was not used to interpret this result as normal/abnormal . HCO3 (test code = 13 See_Comment L [Automate d 1916943058) message] The sy stem which generated this result transmitted reference range : 22 - 26 mEq/L. The reference range was not used to interpret this result as normal/abnormal . BE (test code = -12.7 See_Comment L [Automated 3750513969) message] The sy stem which generated this result transmitted reference range : -3.0 - 3.0 mEq/ L. The reference r kyra was not used to interpret this result as normal/abnormal . THB (test code = 8.1 g/dL 13.5-18.0 LL 0344522559) %O2HB (test code = 97.6 % 94.0-99.0 4033648882) %COHB ART (test code = 0.8 % 0.0-1.5 6497754831) %METHB ART (test code = 0.3 % 0.4-1.5 L 2570073697) VOL%O2 ART (test code = 11.5 % 15.0-23.0 L 2182890622) NA (test code = 136 mmol/L 135-145 2177123234) K+ (test code = 5.1 mmol/L 3.5-5.0 H 7420701830) AC CA IONZ (test code = 4.70 mg/dL 4.50-5.30 7751875701) GLUCOSE (test code = 78 mg/dL 70-110 4131351929) LACTIC ACID (test code 7.35 mmol/L 0.50-2.20 H = 8601896424) Lab Interpretation Abnormal (test code = 42702-5) [facility] Lactic [id number] 03:14:44 Test Item Value Reference Range Interpretation Comments PH (test code = 2) 7.29 7.35-7.45 L PCO2 (test code = 27 See_Comment L [Automate d 9596535804) message] The sy stem which generated this result transmitted reference range : 35 - 45 mmHg. The reference range was not used to interpret this result as normal/abnormal . PO2 (test code = 151 See_Comment H [Automated 9328928139) message] The sy stem which generated this result transmitted reference range : 80 - 100 mmHg. The reference range was not used to interpret this result as normal/abnormal . HCO3 (test code = 13 See_Comment L [Automate d 9340560480) message] The sy stem which generated this result transmitted reference range : 22 - 26 mEq/L. The reference range was not used to interpret this result as normal/abnormal . BE (test code = -12.7 See_Comment L [Automated 5156073932) message] The sy stem which generated this result transmitted reference range : -3.0 - 3.0 mEq/ L. The reference r kyra was not used to interpret this result as normal/abnormal . THB (test code = 8.1 g/dL 13.5-18.0 LL 9783661256) %O2HB (test code = 97.6 % 94.0-99.0 2791855172) %COHB ART (test code = 0.8 % 0.0-1.5 1531910493) %METHB ART (test code = 0.3 % 0.4-1.5 L 9463080611) VOL%O2 ART (test code = 11.5 % 15.0-23.0 L 6861377412) NA (test code = 136 mmol/L 135-145 7245971660) K+ (test code = 5.1 mmol/L 3.5-5.0 H 6512299259) AC CA IONZ (test code = 4.70 mg/dL 4.50-5.30 9427989164) GLUCOSE (test code = 78 mg/dL 70-110 0417994996) LACTIC ACID (test code 7.35 mmol/L 0.50-2.20 H = 2531432216) Lab Interpretation Abnormal (test code = 63458-0) [facility] GLUCOSE (AUTOMATED)2023-02-22 03:02:43 Test Item Value Reference Range Interpretation Comments POCT GLU (test code = 8925767880) 84 mg/dL 70-110 Lab Interpretation (test code = Normal 56363-7) [facility] GLUCOSE (AUTOMATED)2023-02-22 03:02:43 Test Item Value Reference Range Interpretation Comments POCT GLU (test code = 3237408933) 84 mg/dL 70-110 Lab Interpretation (test code = Normal 06035-8) [facility] Lactic [id number] 01:22:22 Test Item Value Reference Range Interpretation Comments PH (test code = 2) 7.29 7.35-7.45 L PCO2 (test code = 29 See_Comment L [Automate d 9307508371) message] The sy stem which generated this result transmitted reference range : 35 - 45 mmHg. The reference range was not used to interpret this result as normal/abnormal . PO2 (test code = 149 See_Comment H [Automated 2269548861) message] The sy stem which generated this result transmitted reference range : 80 - 100 mmHg. The reference range was not used to interpret this result as normal/abnormal . HCO3 (test code = 14 See_Comment L [Automate d 6922589352) message] The sy stem which generated this result transmitted reference range : 22 - 26 mEq/L. The reference range was not used to interpret this result as normal/abnormal . BE (test code = -11.7 See_Comment L [Automated 2728873075) message] The sy stem which generated this result transmitted reference range : -3.0 - 3.0 mEq/ L. The reference r kyra was not used to interpret this result as normal/abnormal . THB (test code = 9.2 g/dL 13.5-18.0 L 9857956138) %O2HB (test code = 97.9 % 94.0-99.0 7535104253) %COHB ART (test code = 0.5 % 0.0-1.5 1640843752) %METHB ART (test code = 0.2 % 0.4-1.5 L 8440131119) VOL%O2 ART (test code = 13.0 % 15.0-23.0 L 1322426947) NA (test code = 137 mmol/L 135-145 1113221603) K+ (test code = 5.2 mmol/L 3.5-5.0 H 2105925746) AC CA IONZ (test code = 4.40 mg/dL 4.50-5.30 L 6944922374) GLUCOSE (test code = 60 mg/dL 70-110 L 9687983315) LACTIC ACID (test code 7.64 mmol/L 0.50-2.20 H = 3388888166) Lab Interpretation Abnormal (test code = 66507-0) [facility] Lactic [id number] 01:22:22 Test Item Value Reference Range Interpretation Comments PH (test code = 2) 7.29 7.35-7.45 L PCO2 (test code = 29 See_Comment L [Automate d 9528007828) message] The sy stem which generated this result transmitted reference range : 35 - 45 mmHg. The reference range was not used to interpret this result as normal/abnormal . PO2 (test code = 149 See_Comment H [Automated 2293344194) message] The sy stem which generated this result transmitted reference range : 80 - 100 mmHg. The reference range was not used to interpret this result as normal/abnormal . HCO3 (test code = 14 See_Comment L [Automate d 5029870779) message] The sy stem which generated this result transmitted reference range : 22 - 26 mEq/L. The reference range was not used to interpret this result as normal/abnormal . BE (test code = -11.7 See_Comment L [Automated 8749109124) message] The sy stem which generated this result transmitted reference range : -3.0 - 3.0 mEq/ L. The reference r kyra was not used to interpret this result as normal/abnormal . THB (test code = 9.2 g/dL 13.5-18.0 L 6767980614) %O2HB (test code = 97.9 % 94.0-99.0 6444469327) %COHB ART (test code = 0.5 % 0.0-1.5 4127983139) %METHB ART (test code = 0.2 % 0.4-1.5 L 1919613185) VOL%O2 ART (test code = 13.0 % 15.0-23.0 L 3260307126) NA (test code = 137 mmol/L 135-145 9056025527) K+ (test code = 5.2 mmol/L 3.5-5.0 H 7094242720) AC CA IONZ (test code = 4.40 mg/dL 4.50-5.30 L 1166130501) GLUCOSE (test code = 60 mg/dL 70-110 L 5796988476) LACTIC ACID (test code 7.64 mmol/L 0.50-2.20 H = 9398233870) Lab Interpretation Abnormal (test code = 26255-0) [facility] + Lactic [id number] 23:48:56 Test Item Value Reference Range Interpretation Comments PH (test code = 2) 7.30 7.35-7.45 L PCO2 (test code = 29 See_Comment L [Automate d 9831212196) message] The sy stem which generated this result transmitted reference range : 35 - 45 mmHg. The reference range was not used to interpret this result as normal/abnormal . PO2 (test code = 183 See_Comment H [Automated 9775414967) message] The sy stem which generated this result transmitted reference range : 80 - 100 mmHg. The reference range was not used to interpret this result as normal/abnormal . HCO3 (test code = 14 See_Comment L [Automate d 3878628654) message] The sy stem which generated this result transmitted reference range : 22 - 26 mEq/L. The reference range was not used to interpret this result as normal/abnormal . BE (test code = -11.2 See_Comment L [Automated 3689236532) message] The sy stem which generated this result transmitted reference range : -3.0 - 3.0 mEq/ L. The reference r kyra was not used to interpret this result as normal/abnormal . THB (test code = 11.7 g/dL 13.5-18.0 L 8458835887) %O2HB (test code = 98.3 % 94.0-99.0 0569512865) %COHB ART (test code = 0.8 % 0.0-1.5 2589777579) %METHB ART (test code = 0.1 % 0.4-1.5 L 1506371769) VOL%O2 ART (test code = 16.6 % 15.0-23.0 1854470593) NA (test code = 136 mmol/L 135-145 9315256037) K+ (test code = 5.0 mmol/L 3.5-5.0 4944833814) AC CA IONZ (test code = 4.40 mg/dL 4.50-5.30 L 7583179557) GLUCOSE (test code = 80 mg/dL 70-110 2826449680) LACTIC ACID (test code 7.37 mmol/L 0.50-2.20 H = 6727993368) Lab Interpretation Abnormal (test code = 41438-3) [facility] + Lactic [id number] 23:48:56 Test Item Value Reference Range Interpretation Comments PH (test code = 2) 7.30 7.35-7.45 L PCO2 (test code = 29 See_Comment L [Automate d 5456895402) message] The sy stem which generated this result transmitted reference range : 35 - 45 mmHg. The reference range was not used to interpret this result as normal/abnormal . PO2 (test code = 183 See_Comment H [Automated 1935512324) message] The sy stem which generated this result transmitted reference range : 80 - 100 mmHg. The reference range was not used to interpret this result as normal/abnormal . HCO3 (test code = 14 See_Comment L [Automate d 9141513867) message] The sy stem which generated this result transmitted reference range : 22 - 26 mEq/L. The reference range was not used to interpret this result as normal/abnormal . BE (test code = -11.2 See_Comment L [Automated 1182413250) message] The sy stem which generated this result transmitted reference range : -3.0 - 3.0 mEq/ L. The reference r kyra was not used to interpret this result as normal/abnormal . THB (test code = 11.7 g/dL 13.5-18.0 L 8627818010) %O2HB (test code = 98.3 % 94.0-99.0 8042053468) %COHB ART (test code = 0.8 % 0.0-1.5 2099450375) %METHB ART (test code = 0.1 % 0.4-1.5 L 2874291729) VOL%O2 ART (test code = 16.6 % 15.0-23.0 7562991670) NA (test code = 136 mmol/L 135-145 9904883758) K+ (test code = 5.0 mmol/L 3.5-5.0 4861406229) AC CA IONZ (test code = 4.40 mg/dL 4.50-5.30 L 6166237686) GLUCOSE (test code = 80 mg/dL 70-110 6247048421) LACTIC ACID (test code 7.37 mmol/L 0.50-2.20 H = 1825459856) Lab Interpretation Abnormal (test code = 68229-9) [facility] Lactic [id number] 22:24:02 Test Item Value Reference Range Interpretation Comments PH (test code = 2) 7.30 7.35-7.45 L PCO2 (test code = 27 See_Comment L [Automate d 5590415792) message] The sy stem which generated this result transmitted reference range : 35 - 45 mmHg. The reference range was not used to interpret this result as normal/abnormal . PO2 (test code = 128 See_Comment H [Automated 4438418893) message] The sy stem which generated this result transmitted reference range : 80 - 100 mmHg. The reference range was not used to interpret this result as normal/abnormal . HCO3 (test code = 13 See_Comment L [Automate d 8258893103) message] The sy stem which generated this result transmitted reference range : 22 - 26 mEq/L. The reference range was not used to interpret this result as normal/abnormal . BE (test code = -12.3 See_Comment L [Automated 5750985799) message] The sy stem which generated this result transmitted reference range : -3.0 - 3.0 mEq/ L. The reference r kyra was not used to interpret this result as normal/abnormal . THB (test code = 8.4 g/dL 13.5-18.0 L 1821869891) %O2HB (test code = 97.4 % 94.0-99.0 0156732340) %COHB ART (test code = 0.9 % 0.0-1.5 6798953243) %METHB ART (test code = 0.1 % 0.4-1.5 L 1565207901) VOL%O2 ART (test code = 11.8 % 15.0-23.0 L 2624260144) NA (test code = 135 mmol/L 135-145 0081833797) K+ (test code = 4.5 mmol/L 3.5-5.0 8921202554) AC CA IONZ (test code = 4.40 mg/dL 4.50-5.30 L 2902027457) GLUCOSE (test code = 92 mg/dL 70-110 0423403811) LACTIC ACID (test code 6.59 mmol/L 0.50-2.20 H = 0278526566) Lab Interpretation Abnormal (test code = 85123-3) [facility] Lactic [id number] 22:24:02 Test Item Value Reference Range Interpretation Comments PH (test code = 2) 7.30 7.35-7.45 L PCO2 (test code = 27 See_Comment L [Automate d 7995105317) message] The sy stem which generated this result transmitted reference range : 35 - 45 mmHg. The reference range was not used to interpret this result as normal/abnormal . PO2 (test code = 128 See_Comment H [Automated 1538804992) message] The sy stem which generated this result transmitted reference range : 80 - 100 mmHg. The reference range was not used to interpret this result as normal/abnormal . HCO3 (test code = 13 See_Comment L [Automate d 4681118880) message] The sy stem which generated this result transmitted reference range : 22 - 26 mEq/L. The reference range was not used to interpret this result as normal/abnormal . BE (test code = -12.3 See_Comment L [Automated 8703868768) message] The sy stem which generated this result transmitted reference range : -3.0 - 3.0 mEq/ L. The reference r kyra was not used to interpret this result as normal/abnormal . THB (test code = 8.4 g/dL 13.5-18.0 L 7898412553) %O2HB (test code = 97.4 % 94.0-99.0 4828266171) %COHB ART (test code = 0.9 % 0.0-1.5 8735729103) %METHB ART (test code = 0.1 % 0.4-1.5 L 6651182567) VOL%O2 ART (test code = 11.8 % 15.0-23.0 L 8422471590) NA (test code = 135 mmol/L 135-145 6604189384) K+ (test code = 4.5 mmol/L 3.5-5.0 7213318702) AC CA IONZ (test code = 4.40 mg/dL 4.50-5.30 L 3182949912) GLUCOSE (test code = 92 mg/dL 70-110 1495532875) LACTIC ACID (test code 6.59 mmol/L 0.50-2.20 H = 3578747982) Lab Interpretation Abnormal (test code = 27388-8) [facility] GLUCOSE (AUTOMATED)2023-02-21 20:46:05 Test Item Value Reference Range Interpretation Comments POCT GLU (test code = 9376775569) 116 mg/dL 70-110 H Lab Interpretation (test code = Abnormal 63382-1) [facility] GLUCOSE (AUTOMATED)2023-02-21 20:46:05 Test Item Value Reference Range Interpretation Comments POCT GLU (test code = 2179393718) 116 mg/dL 70-110 H Lab Interpretation (test code = Abnormal 92215-1) [facility] HIGH [id number] 17:39:48 Test Item Value Reference Range Interpretation Comments ACTHR (test code = 116 See_Comment [Automat ed message] 0624676849) The system [employer] generated this result transmitted ref erence range: 96 - 152 Seconds. The re ference range was not u sed to interpret this result as normal/abnor mal. Lab Interpretation (test Normal code = 44277-4) [facility] HIGH [id number] 17:39:48 Test Item Value Reference Range Interpretation Comments ACTHR (test code = 116 See_Comment [Automat ed message] 8754032039) The system [employer] generated this result transmitted ref erence range: 96 - 152 Seconds. The re ference range was not u sed to interpret this result as normal/abnor mal. Lab Interpretation (test Normal code = 30169-1) [facility] HIGH [id number] 17:39:48 Test Item Value Reference Range Interpretation Comments ACTHR (test code = 443 See_Comment H [Automat ed message] 7764585628) The system [employer] generated this result transmitted ref erence range: 96 - 152 Seconds. The reference range was not used to int erpret this result as normal/abnormal . Lab Interpretation (test Abnormal code = 93409-7) [facility] HIGH [id number] 17:39:48 Test Item Value Reference Range Interpretation Comments ACTHR (test code = 587 See_Comment H [Automat ed message] 7889003243) The system [employer] generated this result transmitted ref erence range: 96 - 152 Seconds. The reference range was not used to int erpret this result as normal/abnormal . Lab Interpretation (test Abnormal code = 79661-2) [facility] HIGH [id number] 17:39:48 Test Item Value Reference Range Interpretation Comments ACTHR (test code = 116 See_Comment [Automat ed message] 9079896168) The system [employer] generated this result transmitted ref erence range: 96 - 152 Seconds. The re ference range was not u sed to interpret this result as normal/abnor mal. Lab Interpretation (test Normal code = 96456-3) [facility] HIGH [id number] 17:39:48 Test Item Value Reference Range Interpretation Comments ACTHR (test code = 443 See_Comment H [Automat ed message] 1062347803) The system [employer] generated this result transmitted ref erence range: 96 - 152 Seconds. The reference range was not used to int erpret this result as normal/abnormal . Lab Interpretation (test Abnormal code = 54710-4) [facility] HIGH [id number] 17:39:48 Test Item Value Reference Range Interpretation Comments ACTHR (test code = 587 See_Comment H [Automat ed message] 1638078905) The system [employer] generated this result transmitted ref erence range: 96 - 152 Seconds. The reference range was not used to int erpret this result as normal/abnormal . Lab Interpretation (test Abnormal code = 75587-4) [facility] HIGH [id number] 17:39:48 Test Item Value Reference Range Interpretation Comments ACTHR (test code = 116 See_Comment [Automat ed message] 6708292208) The system [employer] generated this result transmitted ref erence range: 96 - 152 Seconds. The re ference range was not u sed to interpret this result as normal/abnor mal. Lab Interpretation (test Normal code = 43432-4) [facility] HIGH [id number] 17:39:43 Test Item Value Reference Range Interpretation Comments ACTHR (test code = 482 See_Comment H [Automat ed message] [id number]) The system [employer] generated this result transmitted ref erence range: 96 - 152 Seconds. The reference range was not used to int erpret this result as normal/abnormal . Lab Interpretation (test Abnormal code = 89041-9) [facility] HIGH [id number] 17:39:43 Test Item Value Reference Range Interpretation Comments ACTHR (test code = 481 See_Comment H [Automat ed message] [id number]) The system [employer] generated this result transmitted ref erence range: 96 - 152 Seconds. The reference range was not used to int erpret this result as normal/abnormal . Lab Interpretation (test Abnormal code = 78563-1) [facility] HIGH [id number] 17:39:43 Test Item Value Reference Range Interpretation Comments ACTHR (test code = 450 See_Comment H [Automat ed message] [id number]) The system [employer] generated this result transmitted ref erence range: 96 - 152 Seconds. The reference range was not used to int erpret this result as normal/abnormal . Lab Interpretation (test Abnormal code = 86917-1) [facility] [id number] 17:39:43 Test Item Value Reference Range Interpretation Comments ACTHR (test code = 633 See_Comment H [Automat ed message] [id number]) The system [employer] generated this result transmitted ref erence range: 96 - 152 Seconds. The reference range was not used to int erpret this result as normal/abnormal . Lab Interpretation (test Abnormal code = 79804-6) [facility] [id number] 17:39:43 Test Item Value Reference Range Interpretation Comments ACTHR (test code = 625 See_Comment H [Automat ed message] [id number]) The system [employer] generated this result transmitted ref erence range: 96 - 152 Seconds. The reference range was not used to int erpret this result as normal/abnormal . Lab Interpretation (test Abnormal code = 91455-4) [facility] [id number] 17:39:43 Test Item Value Reference Range Interpretation Comments ACTHR (test code = 588 See_Comment H [Automat ed message] [id number]) The system [employer] generated this result transmitted ref erence range: 96 - 152 Seconds. The reference range was not used to int erpret this result as normal/abnormal . Lab Interpretation (test Abnormal code = 98166-4) [facility] [employer] [id number] 17:39:43 Test Item Value Reference Range Interpretation Comments ACTHR (test code = 482 See_Comment H [Automat ed message] [id number]) The system [employer] generated this result transmitted ref erence range: 96 - 152 Seconds. The reference range was not used to int erpret this result as normal/abnormal . Lab Interpretation (test Abnormal code = 19706-9) [facility] HIGH [id number] 17:39:43 Test Item Value Reference Range Interpretation Comments ACTHR (test code = 481 See_Comment H [Automat ed message] [id number]) The system [employer] generated this result transmitted ref erence range: 96 - 152 Seconds. The reference range was not used to int erpret this result as normal/abnormal . Lab Interpretation (test Abnormal code = 97525-1) [facility] HIGH [id number] 17:39:43 Test Item Value Reference Range Interpretation Comments ACTHR (test code = 450 See_Comment H [Automat ed message] [id number]) The system [employer] generated this result transmitted ref erence range: 96 - 152 Seconds. The reference range was not used to int erpret this result as normal/abnormal . Lab Interpretation (test Abnormal code = 25834-0) [facility] HIGH [id number] 17:39:43 Test Item Value Reference Range Interpretation Comments ACTHR (test code = 633 See_Comment H [Automat ed message] [id number]) The system [employer] generated this result transmitted ref erence range: 96 - 152 Seconds. The reference range was not used to int erpret this result as normal/abnormal . Lab Interpretation (test Abnormal code = 89244-3) [facility] HIGH [id number] 17:39:43 Test Item Value Reference Range Interpretation Comments ACTHR (test code = 625 See_Comment H [Automat ed message] [id number]) The system [employer] generated this result transmitted ref erence range: 96 - 152 Seconds. The reference range was not used to int erpret this result as normal/abnormal . Lab Interpretation (test Abnormal code = 32426-3) [facility] HIGH [id number] 17:39:43 Test Item Value Reference Range Interpretation Comments ACTHR (test code = 588 See_Comment H [Automat ed message] [id number]) The system [employer] generated this result transmitted ref erence range: 96 - 152 Seconds. The reference range was not used to int erpret this result as normal/abnormal . Lab Interpretation (test Abnormal code = 45017-8) [facility] HIGH [id number] 17:39:38 Test Item Value Reference Range Interpretation Comments ACTHR (test code = 515 See_Comment H [Automat ed message] [id number]) The system [employer] generated this result transmitted ref erence range: 96 - 152 Seconds. The reference range was not used to int erpret this result as normal/abnormal . Lab Interpretation (test Abnormal code = 27255-2) [facility] HIGH [id number] 17:39:38 Test Item Value Reference Range Interpretation Comments ACTHR (test code = 517 See_Comment H [Automat ed message] [id number]) The system [employer] generated this result transmitted ref erence range: 96 - 152 Seconds. The reference range was not used to int erpret this result as normal/abnormal . Lab Interpretation (test Abnormal code = 45737-3) [facility] HIGH [id number] 17:39:38 Test Item Value Reference Range Interpretation Comments ACTHR (test code = 515 See_Comment H [Automat ed message] [id number]) The system [employer] generated this result transmitted ref erence range: 96 - 152 Seconds. The reference range was not used to int erpret this result as normal/abnormal . Lab Interpretation (test Abnormal code = 61226-2) [facility] HIGH [id number] 17:39:38 Test Item Value Reference Range Interpretation Comments ACTHR (test code = 517 See_Comment H [Automat ed message] [id number]) The system [employer] generated this result transmitted ref erence range: 96 - 152 Seconds. The reference range was not used to int erpret this result as normal/abnormal . Lab Interpretation (test Abnormal code = 83024-6) [facility] HIGH [id number] 17:39:37 Test Item Value Reference Range Interpretation Comments ACTHR (test code = 728 See_Comment H [Automat ed message] [id number]) The system [employer] generated this result transmitted ref erence range: 96 - 152 Seconds. The reference range was not used to int erpret this result as normal/abnormal . Lab Interpretation (test Abnormal code = 97620-1) [facility] HIGH [id number] 17:39:37 Test Item Value Reference Range Interpretation Comments ACTHR (test code = 597 See_Comment H [Automat ed message] [id number]) The system [employer] generated this result transmitted ref erence range: 96 - 152 Seconds. The reference range was not used to int erpret this result as normal/abnormal . Lab Interpretation (test Abnormal code = 00520-8) [facility] HIGH [id number] 17:39:37 Test Item Value Reference Range Interpretation Comments ACTHR (test code = 553 See_Comment H [Automat ed message] [id number]) The system [employer] generated this result transmitted ref erence range: 96 - 152 Seconds. The reference range was not used to int erpret this result as normal/abnormal . Lab Interpretation (test Abnormal code = 30621-2) [facility] HIGH [id number] 17:39:37 Test Item Value Reference Range Interpretation Comments ACTHR (test code = 526 See_Comment H [Automat ed message] [id number]) The system [employer] generated this result transmitted ref erence range: 96 - 152 Seconds. The reference range was not used to int erpret this result as normal/abnormal . Lab Interpretation (test Abnormal code = 20127-5) [facility] HIGH [id number] 17:39:37 Test Item Value Reference Range Interpretation Comments ACTHR (test code = 520 See_Comment H [Automat ed message] [id number]) The system [employer] generated this result transmitted ref erence range: 96 - 152 Seconds. The reference range was not used to int erpret this result as normal/abnormal . Lab Interpretation (test Abnormal code = 99872-6) [facility] HIGH [id number] 17:39:37 Test Item Value Reference Range Interpretation Comments ACTHR (test code = 728 See_Comment H [Automat ed message] [id number]) The system [employer] generated this result transmitted ref erence range: 96 - 152 Seconds. The reference range was not used to int erpret this result as normal/abnormal . Lab Interpretation (test Abnormal code = 07937-5) [facility] HIGH [id number] 17:39:37 Test Item Value Reference Range Interpretation Comments ACTHR (test code = 597 See_Comment H [Automat ed message] [id number]) The system [employer] generated this result transmitted ref erence range: 96 - 152 Seconds. The reference range was not used to int erpret this result as normal/abnormal . Lab Interpretation (test Abnormal code = 89795-0) [facility] HIGH [id number] 17:39:37 Test Item Value Reference Range Interpretation Comments ACTHR (test code = 553 See_Comment H [Automat ed message] [id number]) The system [employer] generated this result transmitted ref erence range: 96 - 152 Seconds. The reference range was not used to int erpret this result as normal/abnormal . Lab Interpretation (test Abnormal code = 85225-7) [facility] HIGH [id number] 17:39:37 Test Item Value Reference Range Interpretation Comments ACTHR (test code = 526 See_Comment H [Automat ed message] [id number]) The system [employer] generated this result transmitted ref erence range: 96 - 152 Seconds. The reference range was not used to int erpret this result as normal/abnormal . Lab Interpretation (test Abnormal code = 21024-8) [facility] HIGH [id number] 17:39:37 Test Item Value Reference Range Interpretation Comments ACTHR (test code = 520 See_Comment H [Automat ed message] [id number]) The system [employer] generated this result transmitted ref erence range: 96 - 152 Seconds. The reference range was not used to int erpret this result as normal/abnormal . Lab Interpretation (test Abnormal code = 40845-1) [facility] HIGH [id number] 17:39:32 Test Item Value Reference Range Interpretation Comments ACTHR (test code = 663 See_Comment H [Automat ed message] [id number]) The system [employer] generated this result transmitted ref erence range: 96 - 152 Seconds. The reference range was not used to int erpret this result as normal/abnormal . Lab Interpretation (test Abnormal code = 19550-5) [facility] HIGH [id number] 17:39:32 Test Item Value Reference Range Interpretation Comments ACTHR (test code = 778 See_Comment H [Automat ed message] [id number]) The system [employer] generated this result transmitted ref erence range: 96 - 152 Seconds. The reference range was not used to int erpret this result as normal/abnormal . Lab Interpretation (test Abnormal code = 02618-1) [facility] HIGH [id number] 17:39:32 Test Item Value Reference Range Interpretation Comments ACTHR (test code = 581 See_Comment H [Automat ed message] [id number]) The system [employer] generated this result transmitted ref erence range: 96 - 152 Seconds. The reference range was not used to int erpret this result as normal/abnormal . Lab Interpretation (test Abnormal code = 92245-8) [facility] HIGH [id number] 17:39:32 Test Item Value Reference Range Interpretation Comments ACTHR (test code = 663 See_Comment H [Automat ed message] [id number]) The system [employer] generated this result transmitted ref erence range: 96 - 152 Seconds. The reference range was not used to int erpret this result as normal/abnormal . Lab Interpretation (test Abnormal code = 72998-5) [facility] HIGH [id number] 17:39:32 Test Item Value Reference Range Interpretation Comments ACTHR (test code = 778 See_Comment H [Automat ed message] [id number]) The system [employer] generated this result transmitted ref erence range: 96 - 152 Seconds. The reference range was not used to int erpret this result as normal/abnormal . Lab Interpretation (test Abnormal code = 29370-2) [facility] HIGH [id number] 17:39:32 Test Item Value Reference Range Interpretation Comments ACTHR (test code = 581 See_Comment H [Automat ed message] [id number]) The system [employer] generated this result transmitted ref erence range: 96 - 152 Seconds. The reference range was not used to int erpret this result as normal/abnormal . Lab Interpretation (test Abnormal code = 63037-3) [facility] HIGH [id number] 17:39:31 Test Item Value Reference Range Interpretation Comments ACTHR (test code = 701 See_Comment H [Automat ed message] [id number]) The system [employer] generated this result transmitted ref erence range: 96 - 152 Seconds. The reference range was not used to int erpret this result as normal/abnormal . Lab Interpretation (test Abnormal code = 86200-0) [facility] HIGH [id number] 17:39:31 Test Item Value Reference Range Interpretation Comments ACTHR (test code = 749 See_Comment H [Automat ed message] [id number]) The system [employer] generated this result transmitted ref erence range: 96 - 152 Seconds. The reference range was not used to int erpret this result as normal/abnormal . Lab Interpretation (test Abnormal code = 74734-5) [facility] HIGH [id number] 17:39:31 Test Item Value Reference Range Interpretation Comments ACTHR (test code = 701 See_Comment H [Automat ed message] [id number]) The system [employer] generated this result transmitted ref erence range: 96 - 152 Seconds. The reference range was not used to int erpret this result as normal/abnormal . Lab Interpretation (test Abnormal code = 04515-1) [facility] HIGH [id number] 17:39:31 Test Item Value Reference Range Interpretation Comments ACTHR (test code = 749 See_Comment H [Automat ed message] [id number]) The system [employer] generated this result transmitted ref erence range: 96 - 152 Seconds. The reference range was not used to int erpret this result as normal/abnormal . Lab Interpretation (test Abnormal code = 43525-0) [facility] HIGH [id number] 17:39:26 Test Item Value Reference Range Interpretation Comments ACTHR (test code = 109 See_Comment [Automat ed message] [id number]) The system [employer] generated this result transmitted ref erence range: 96 - 152 Seconds. The re ference range was not u sed to interpret this result as normal/abnor mal. Lab Interpretation (test Normal code = 73221-3) [facility] ACT HIGH [id number] 17:39:26 Test Item Value Reference Range Interpretation Comments ACTHR (test code = 592 See_Comment H [Automat ed message] [id number]) The system [employer] generated this result transmitted ref erence range: 96 - 152 Seconds. The reference range was not used to int erpret this result as normal/abnormal . Lab Interpretation (test Abnormal code = 23748-2) [facility] ACT HIGH [id number] 17:39:26 Test Item Value Reference Range Interpretation Comments ACTHR (test code = 109 See_Comment [Automat ed message] [id number]) The system [employer] generated this result transmitted ref erence range: 96 - 152 Seconds. The re ference range was not u sed to interpret this result as normal/abnor mal. Lab Interpretation (test Normal code = 60850-9) [facility] ACT HIGH [id number] 17:39:26 Test Item Value Reference Range Interpretation Comments ACTHR (test code = 592 See_Comment H [Automat ed message] [id number]) The system [employer] generated this result transmitted ref erence range: 96 - 152 Seconds. The reference range was not used to int erpret this result as normal/abnormal . Lab Interpretation (test Abnormal code = 48710-6) [facility] GLUCOSE (AUTOMATED)2023-02-21 17:27:58 Test Item Value Reference Range Interpretation Comments POCT GLU (test code = 1039269596) 132 mg/dL 70-110 H Lab Interpretation (test code = Abnormal 14575-2) [facility] GLUCOSE (AUTOMATED)2023-02-21 17:27:58 Test Item Value Reference Range Interpretation Comments POCT GLU (test code = 6586753845) 132 mg/dL 70-110 H Lab Interpretation (test code = Abnormal 37073-5) [facility] GLUCOSE (AUTOMATED)2023-02-21 17:04:57 Test Item Value Reference Range Interpretation Comments POCT GLU (test code = 0185873254) 174 mg/dL 70-110 H Lab Interpretation (test code = Abnormal 40983-5) [facility] GLUCOSE (AUTOMATED)2023-02-21 17:04:57 Test Item Value Reference Range Interpretation Comments POCT GLU (test code = 0626757734) 174 mg/dL 70-110 H Lab Interpretation (test code = Abnormal 03978-8) [facility] GLUCOSE (AUTOMATED)2023-02-21 12:51:22 Test Item Value Reference Range Interpretation Comments POCT GLU (test code = 0856764993) 24 mg/dL 70-110 LL Lab Interpretation (test code = Abnormal 39874-1) [facility] GLUCOSE (AUTOMATED)2023-02-21 12:51:22 Test Item Value Reference Range Interpretation Comments POCT GLU (test code = 4876151277) 148 mg/dL 70-110 H Lab Interpretation (test code = Abnormal 13802-9) [facility] GLUCOSE (AUTOMATED)2023-02-21 12:51:22 Test Item Value Reference Range Interpretation Comments POCT GLU (test code = 4320420378) 24 mg/dL 70-110 LL Lab Interpretation (test code = Abnormal 89518-0) [facility] GLUCOSE (AUTOMATED)2023-02-21 12:51:22 Test Item Value Reference Range Interpretation Comments POCT GLU (test code = 7514108147) 148 mg/dL 70-110 H Lab Interpretation (test code = Abnormal 39003-9) [facility] [id number] 08:53:37 Test Item Value Reference Range Interpretation Comments PH (test code = 2) 7.37 7.35-7.45 PCO2 (test code = 32 See_Comment L [Automate d 3213413867) message] The sy stem which generated this result transmitted reference range : 35 - 45 mmHg. The reference range was not used to interpret this result as normal/abnormal . PO2 (test code = 107 See_Comment H [Automated 6652422155) message] The sy stem which generated this result transmitted reference range : 80 - 100 mmHg. The reference range was not used to interpret this result as normal/abnormal . HCO3 (test code = 18 See_Comment L [Automate d 2840164576) message] The sy stem which generated this result transmitted reference range : 22 - 26 mEq/L. The reference range was not used to interpret this result as normal/abnormal . BE (test code = -6.1 See_Comment L [Automated 6826926854) message] The sy stem which generated this result transmitted reference range : -3.0 - 3.0 mEq/ L. The reference r kyra was not used to interpret this result as normal/abnormal . THB (test code = 8.0 g/dL 13.5-18.0 LL 6410892442) %O2HB (test code = 96.3 % 94.0-99.0 8675821842) %COHB ART (test code = 0.8 % 0.0-1.5 2235937916) %METHB ART (test code = 0.1 % 0.4-1.5 L 0445925583) VOL%O2 ART (test code = 11.0 % 15.0-23.0 L 9112332484) NA (test code = 136 mmol/L 135-145 9388546203) K+ (test code = 4.2 mmol/L 3.5-5.0 0761464924) AC CA IONZ (test code = 4.30 mg/dL 4.50-5.30 L 3076134130) GLUCOSE (test code = 154 mg/dL 70-110 H 7435184907) LACTIC ACID (test code 1.99 mmol/L 0.50-2.20 = 7365808021) Lab Interpretation Abnormal (test code = 10618-5) [facility] [id number] 08:53:37 Test Item Value Reference Range Interpretation Comments PH (test code = 2) 7.37 7.35-7.45 PCO2 (test code = 32 See_Comment L [Automate d 0737550752) message] The sy stem which generated this result transmitted reference range : 35 - 45 mmHg. The reference range was not used to interpret this result as normal/abnormal . PO2 (test code = 107 See_Comment H [Automated 2915514024) message] The sy stem which generated this result transmitted reference range : 80 - 100 mmHg. The reference range was not used to interpret this result as normal/abnormal . HCO3 (test code = 18 See_Comment L [Automate d 1690172123) message] The sy stem which generated this result transmitted reference range : 22 - 26 mEq/L. The reference range was not used to interpret this result as normal/abnormal . BE (test code = -6.1 See_Comment L [Automated 2089902109) message] The sy stem which generated this result transmitted reference range : -3.0 - 3.0 mEq/ L. The reference r kyra was not used to interpret this result as normal/abnormal . THB (test code = 8.0 g/dL 13.5-18.0 LL 3281402948) %O2HB (test code = 96.3 % 94.0-99.0 1131047536) %COHB ART (test code = 0.8 % 0.0-1.5 9618254545) %METHB ART (test code = 0.1 % 0.4-1.5 L 7975858002) VOL%O2 ART (test code = 11.0 % 15.0-23.0 L 8399493038) NA (test code = 136 mmol/L 135-145 1655603058) K+ (test code = 4.2 mmol/L 3.5-5.0 4532723772) AC CA IONZ (test code = 4.30 mg/dL 4.50-5.30 L 4647246573) GLUCOSE (test code = 154 mg/dL 70-110 H 0359025628) LACTIC ACID (test code 1.99 mmol/L 0.50-2.20 = 5289246536) Lab Interpretation Abnormal (test code = 22578-9) [facility] [id number] 04:59:48 Test Item Value Reference Range Interpretation Comments PH (test code = 2) 7.40 7.35-7.45 PCO2 (test code = 32 See_Comment L [Automate d 7179587345) message] The sy stem which generated this result transmitted reference range : 35 - 45 mmHg. The reference range was not used to interpret this result as normal/abnormal . PO2 (test code = 113 See_Comment H [Automated 9454143169) message] The sy stem which generated this result transmitted reference range : 80 - 100 mmHg. The reference range was not used to interpret this result as normal/abnormal . HCO3 (test code = 19 See_Comment L [Automate d 9121392965) message] The sy stem which generated this result transmitted reference range : 22 - 26 mEq/L. The reference range was not used to interpret this result as normal/abnormal . BE (test code = -5.0 See_Comment L [Automated 0074909662) message] The sy stem which generated this result transmitted reference range : -3.0 - 3.0 mEq/ L. The reference r kyra was not used to interpret this result as normal/abnormal . THB (test code = 8.9 g/dL 13.5-18.0 L 2088601218) %O2HB (test code = 96.5 % 94.0-99.0 9586429614) %COHB ART (test code = 0.7 % 0.0-1.5 9608091339) %METHB ART (test code = 0.1 % 0.4-1.5 L 8598828290) VOL%O2 ART (test code = 12.3 % 15.0-23.0 L 6405890641) NA (test code = 134 mmol/L 135-145 L 3425528151) K+ (test code = 4.3 mmol/L 3.5-5.0 2745284916) AC CA IONZ (test code = 4.20 mg/dL 4.50-5.30 L 7942753574) GLUCOSE (test code = 148 mg/dL 70-110 H 1402106228) LACTIC ACID (test code 1.91 mmol/L 0.50-2.20 = 7767771377) Lab Interpretation Abnormal (test code = 12615-1) [facility] Lactic [id number] 04:59:48 Test Item Value Reference Range Interpretation Comments PH (test code = 2) 7.40 7.35-7.45 PCO2 (test code = 32 See_Comment L [Automate d 4539991722) message] The sy stem which generated this result transmitted reference range : 35 - 45 mmHg. The reference range was not used to interpret this result as normal/abnormal . PO2 (test code = 113 See_Comment H [Automated 3463292221) message] The sy stem which generated this result transmitted reference range : 80 - 100 mmHg. The reference range was not used to interpret this result as normal/abnormal . HCO3 (test code = 19 See_Comment L [Automate d 0753232231) message] The sy stem which generated this result transmitted reference range : 22 - 26 mEq/L. The reference range was not used to interpret this result as normal/abnormal . BE (test code = -5.0 See_Comment L [Automated 0703510951) message] The sy stem which generated this result transmitted reference range : -3.0 - 3.0 mEq/ L. The reference r kyra was not used to interpret this result as normal/abnormal . THB (test code = 8.9 g/dL 13.5-18.0 L 2041912638) %O2HB (test code = 96.5 % 94.0-99.0 5189241688) %COHB ART (test code = 0.7 % 0.0-1.5 3489100074) %METHB ART (test code = 0.1 % 0.4-1.5 L 6966483465) VOL%O2 ART (test code = 12.3 % 15.0-23.0 L 7519943069) NA (test code = 134 mmol/L 135-145 L 3104821107) K+ (test code = 4.3 mmol/L 3.5-5.0 3507859735) AC CA IONZ (test code = 4.20 mg/dL 4.50-5.30 L 8065003297) GLUCOSE (test code = 148 mg/dL 70-110 H 6149135580) LACTIC ACID (test code 1.91 mmol/L 0.50-2.20 = 9412836616) Lab Interpretation Abnormal (test code = 39093-1) [facility] GLUCOSE (AUTOMATED)2023-02-21 01:03:39 Test Item Value Reference Range Interpretation Comments POCT GLU (test code = 6823761709) 123 mg/dL 70-110 H Lab Interpretation (test code = Abnormal 23584-5) [facility] GLUCOSE (AUTOMATED)2023-02-21 01:03:39 Test Item Value Reference Range Interpretation Comments POCT GLU (test code = 2777577033) 123 mg/dL 70-110 H Lab Interpretation (test code = Abnormal 41416-3) [facility] GLUCOSE (AUTOMATED)2023-02-20 21:30:37 Test Item Value Reference Range Interpretation Comments POCT GLU (test code = 5088199117) 46 mg/dL 70-110 LL Lab Interpretation (test code = Abnormal 48633-1) [facility] GLUCOSE (AUTOMATED)2023-02-20 21:30:37 Test Item Value Reference Range Interpretation Comments POCT GLU (test code = 2478284868) 161 mg/dL 70-110 H Lab Interpretation (test code = Abnormal 05246-6) [facility] GLUCOSE (AUTOMATED)2023-02-20 21:30:37 Test Item Value Reference Range Interpretation Comments POCT GLU (test code = 4183831186) 46 mg/dL 70-110 LL Lab Interpretation (test code = Abnormal 30381-7) [facility] GLUCOSE (AUTOMATED)2023-02-20 21:30:37 Test Item Value Reference Range Interpretation Comments POCT GLU (test code = 0584221233) 161 mg/dL 70-110 H Lab Interpretation (test code = Abnormal 13608-6) [facility] GLUCOSE (AUTOMATED)2023-02-20 16:23:09 Test Item Value Reference Range Interpretation Comments POCT GLU (test code = 7428082685) 123 mg/dL 70-110 H Lab Interpretation (test code = Abnormal 56531-2) [facility] GLUCOSE (AUTOMATED)2023-02-20 16:23:09 Test Item Value Reference Range Interpretation Comments POCT GLU (test code = 5628740015) 123 mg/dL 70-110 H Lab Interpretation (test code = Abnormal 12101-3) [facility] GLUCOSE (AUTOMATED)2023-02-20 12:39:38 Test Item Value Reference Range Interpretation Comments POCT GLU (test code = 9848964316) 72 mg/dL 70-110 Lab Interpretation (test code = Normal 21929-3) [facility] GLUCOSE (AUTOMATED)2023-02-20 12:39:38 Test Item Value Reference Range Interpretation Comments POCT GLU (test code = 1217877277) 72 mg/dL 70-110 Lab Interpretation (test code = Normal 27888-3) [facility] METABOLIC PANEL (NA, K, CL, CO2, GLUCOSE, BUN, CREATININE, CA)2023-02-20 09:48:50 Test Item Value Reference Range Interpretation Comments NA (test code = 137 mmol/L 135-145 2005219283) K (test code = 4.6 mmol/L 3.5-5.0 7605830530) CL (test code = 104 mmol/L 98-108 2348526397) CO2 TOTAL (test code = 22 mmol/L 23-31 L 9837701584) AGAP (test code = 11 2-16 5656603230) BUN (test code = 68 mg/dL 7-23 H 2149198143) GLUCOSE (test code = 185 mg/dL 70-110 H 8896878273) CREATININE (test code = 2.63 mg/dL 0.60-1.25 H 4902683691) CALCIUM (test code = 7.4 mg/dL 8.6-10.6 L 8166725084) eGFR (test code = 24.9 mL/min/1.73m2 9684981209) MIKAYLA (test code = MIKAYLA) Association of Glomerular Filtration Rate (GFR) and Staging of Kidney Disease* + --+ --+ ------+| GFR (mL/min/1.73 m2) ?| With Kidney Damage ?| ?Without Kidney Damage+ --------+ --------+ +| ?>90 ?| ?Stage one ?| ? Normal ?+ ---+ ---+ -------+| ?60-89 ?| ?Stage two ?| ? Decreased GFR ? + --+ --+ ------+| ?30-59 ?| ?Stage three ?| ? Stage three ? + --+ --+ ------+| ?15-29 ?| ?Stage four ? | ? Stage four ?+ ---+ ---+ -------+| ?<15 (or dialysis) ? ?| ?Stage five ? | ? Stage five ?+ ---+ ---+ -------+ *Each stage assumes the associated GFR level has been in effect for at least three months. ?Stages 1 to 5, with or without kidney disease, indicate chronic kidney disease. Notes: Determination of stages one and two (with eGFR >59mL/min/1.73 m2) requires estimation of kidney damage for at least three months as defined by structural or functional abnormalities of the kidney, manifested by either:Pathological abnormalities or Markers of kidney damage (including abnormalities in the composition of the blood or urine or abnormalities in imaging tests). Lab Interpretation Abnormal (test code = 79400-0) [facility] Test Item Value Reference Range Interpretation Comments MAGNESIUM (test code = 5994393448) 2.8 mg/dL 1.7-2.4 H Lab Interpretation (test code = Abnormal 29201-0) [facility] Test Item Value Reference Range Interpretation Comments PHOSPHORUS (test code = 3879269530) 3.7 mg/dL 2.5-5.0 Lab Interpretation (test code = Normal 01050-1) [facility] METABOLIC PANEL (NA, K, CL, CO2, GLUCOSE, BUN, CREATININE, CA)2023-02-20 09:48:50 Test Item Value Reference Range Interpretation Comments NA (test code = 137 mmol/L 135-145 7852802202) K (test code = 4.6 mmol/L 3.5-5.0 0379869707) CL (test code = 104 mmol/L 98-108 5418657045) CO2 TOTAL (test code = 22 mmol/L 23-31 L 4532023778) AGAP (test code = 11 2-16 9288489836) BUN (test code = 68 mg/dL 7-23 H 6336468530) GLUCOSE (test code = 185 mg/dL 70-110 H 1795960552) CREATININE (test code = 2.63 mg/dL 0.60-1.25 H 3147428806) CALCIUM (test code = 7.4 mg/dL 8.6-10.6 L 6771862495) eGFR (test code = 24.9 mL/min/1.73m2 3231497194) MIKAYLA (test code = MIKAYLA) Association of Glomerular Filtration Rate (GFR) and Staging of Kidney Disease* + --+ --+ ------+| GFR (mL/min/1.73 m2) ?| With Kidney Damage ?| ?Without Kidney Damage+ --------+ --------+ +| ?>90 ?| ?Stage one ?| ? Normal ?+ ---+ ---+ -------+| ?60-89 ?| ?Stage two ?| ? Decreased GFR ? + --+ --+ ------+| ?30-59 ?| ?Stage three ?| ? Stage three ? + --+ --+ ------+| ?15-29 ?| ?Stage four ? | ? Stage four ?+ ---+ ---+ -------+| ?<15 (or dialysis) ? ?| ?Stage five ? | ? Stage five ?+ ---+ ---+ -------+ *Each stage assumes the associated GFR level has been in effect for at least three months. ?Stages 1 to 5, with or without kidney disease, indicate chronic kidney disease. Notes: Determination of stages one and two (with eGFR >59mL/min/1.73 m2) requires estimation of kidney damage for at least three months as defined by structural or functional abnormalities of the kidney, manifested by either:Pathological abnormalities or Markers of kidney damage (including abnormalities in the composition of the blood or urine or abnormalities in imaging tests). Lab Interpretation Abnormal (test code = 40060-9) [facility] Test Item Value Reference Range Interpretation Comments MAGNESIUM (test code = 0017039287) 2.8 mg/dL 1.7-2.4 H Lab Interpretation (test code = Abnormal 27813-4) [facility]50 Test Item Value Reference Range Interpretation Comments PHOSPHORUS (test code = 8694736867) 3.7 mg/dL 2.5-5.0 Lab Interpretation (test code = Normal 11458-0) [id number] 09:25:45 Test Item Value Reference Range Interpretation Comments WBC (test code = 13.59 See_Comment H [Automated message] 6690-2) The system [employer] generated this result transmitted ref erence range: 4.20 - 1 0.70 10*3/?L. The reference range was not used to int erpret this result as normal/abnormal . RBC (test code = 789-8) 2.50 See_Comment L [Au tomated message] The system [employer] generated this result transmitted ref erence range: 4.26 - 5 .52 10*6/?L. The reference range was not used to int erpret this result as normal/abnormal . HGB (test code = 718-7) 7.5 g/dL 12.2-16.4 L HCT (test code = 23.5 % 38.4-49.3 L 4544-3) MCH (test code = 785-6) 30.0 pg 26.1-32.7 MCV (test code = 787-2) 94.0 fL 81.7-95.6 MCHC (test code = 31.9 g/dL 31.2-35.0 786-4) PLT (test code = 777-3) 72 See_Comment L [Au tomated message] The system [employer] generated this result transmitted ref erence range: 150 - 32 8 10*3/?L. The reference range was not used to int erpret this result as normal/abnormal . MPV (test code = 13.9 fL 9.8-13.0 H 99049-6) RDW-CV (test code = 16.3 % 12.1-15.4 H 788-0) RDW-SD (test code = 54.6 fL 38.5-51.6 H 94183-3) NRBC x10^3 (test code = 0.15 See_Comment [Au tomated message] 7459766645) The system [employer] generated this result transmitted ref erence range: 10*3/?L. The reference range was not used to int erpret this result as normal/abnormal . NRBC/100 WBC (test code 1.1 See_Comment [Au tomated message] = 5510960456) The system [facility] generated this result transmitted ref erence range: 0.0 - 10 .0 /100 WBCs. The reference range was not used to int erpret this result as normal/abnormal . IPF % (test code = 20.8 % 1.2-10.7 H Platelet count 8975826173) measured by fluorescence me thod. Lab Interpretation Abnormal (test code = 89423-7) [facility] [id number] 09:25:45 Test Item Value Reference Range Interpretation Comments WBC (test code = 13.59 See_Comment H [Automated message] 6690-2) The system [employer] generated this result transmitted ref erence range: 4.20 - 1 0.70 10*3/?L. The reference range was not used to int erpret this result as normal/abnormal . RBC (test code = 789-8) 2.50 See_Comment L [Au tomated message] The system [employer] generated this result transmitted ref erence range: 4.26 - 5 .52 10*6/?L. The reference range was not used to int erpret this result as normal/abnormal . HGB (test code = 718-7) 7.5 g/dL 12.2-16.4 L HCT (test code = 23.5 % 38.4-49.3 L 4544-3) MCH (test code = 785-6) 30.0 pg 26.1-32.7 MCV (test code = 787-2) 94.0 fL 81.7-95.6 MCHC (test code = 31.9 g/dL 31.2-35.0 786-4) PLT (test code = 777-3) 72 See_Comment L [Au tomated message] The system [employer] generated this result transmitted ref erence range: 150 - 32 8 10*3/?L. The reference range was not used to int erpret this result as normal/abnormal . MPV (test code = 13.9 fL 9.8-13.0 H 06709-5) RDW-CV (test code = 16.3 % 12.1-15.4 H 788-0) RDW-SD (test code = 54.6 fL 38.5-51.6 H 11150-7) NRBC x10^3 (test code = 0.15 See_Comment [Au tomated message] 0508829826) The system [employer] generated this result transmitted ref erence range: 10*3/?L. The reference range was not used to int erpret this result as normal/abnormal . NRBC/100 WBC (test code 1.1 See_Comment [Au tomated message] = 3488805722) The system [employer] generated this result transmitted ref erence range: 0.0 - 10 .0 /100 WBCs. The reference range was not used to int erpret this result as normal/abnormal . IPF % (test code = 20.8 % 1.2-10.7 H Platelet count 3234750940) measured by fluorescence me thod. Lab Interpretation Abnormal (test code = 67305-4) [facility] GLUCOSE (AUTOMATED)2023-02-20 08:59:49 Test Item Value Reference Range Interpretation Comments POCT GLU (test code = 5304682768) 189 mg/dL 70-110 H Lab Interpretation (test code = Abnormal 12746-5) [facility] GLUCOSE (AUTOMATED)2023-02-20 08:59:49 Test Item Value Reference Range Interpretation Comments POCT GLU (test code = 0821036754) 189 mg/dL 70-110 H Lab Interpretation (test code = Abnormal 09235-2) [facility] GLUCOSE (AUTOMATED)2023-02-20 06:05:20 Test Item Value Reference Range Interpretation Comments POCT GLU (test code = 6537798649) 196 mg/dL 70-110 H Lab Interpretation (test code = Abnormal 89491-8) [facility] GLUCOSE (AUTOMATED)2023-02-20 06:05:20 Test Item Value Reference Range Interpretation Comments POCT GLU (test code = 1113173179) 196 mg/dL 70-110 H Lab Interpretation (test code = Abnormal 01179-0) [facility] Test Item Value Reference Range Interpretation Comments MAGNESIUM (test code = 3874127492) 2.6 mg/dL 1.7-2.4 H Lab Interpretation (test code = Abnormal 61488-3) [facility] Test Item Value Reference Range Interpretation Comments MAGNESIUM (test code = 8244195606) 2.6 mg/dL 1.7-2.4 H Lab Interpretation (test code = Abnormal 11204-4) [facility] (NA, K, CL, CO2, GLUCOSE, BUN, CREATININE, CA)2023-02-20 01:43:50 Test Item Value Reference Range Interpretation Comments NA (test code = 140 mmol/L 135-145 9351633938) K (test code = 3.8 mmol/L 3.5-5.0 2673917441) CL (test code = 106 mmol/L 98-108 9365791031) CO2 TOTAL (test code = 22 mmol/L 23-31 L 9166730926) AGAP (test code = 12 2-16 1537617439) BUN (test code = 64 mg/dL 7-23 H 5728943892) GLUCOSE (test code = 167 mg/dL 70-110 H 6115360932) CREATININE (test code = 2.52 mg/dL 0.60-1.25 H 5182522263) CALCIUM (test code = 7.4 mg/dL 8.6-10.6 L 1290271200) eGFR (test code = 26.1 mL/min/1.73m2 3209222427) MIKAYLA (test code = MIKAYLA) Association of Glomerular Filtration Rate (GFR) and Staging of Kidney Disease* + --+ --+ ------+| GFR (mL/min/1.73 m2) ?| With Kidney Damage ?| ?Without Kidney Damage+ --------+ --------+ +| ?>90 ?| ?Stage one ?| ? Normal ?+ ---+ ---+ -------+| ?60-89 ?| ?Stage two ?| ? Decreased GFR ? + --+ --+ ------+| ?30-59 ?| ?Stage three ?| ? Stage three ? + --+ --+ ------+| ?15-29 ?| ?Stage four ? | ? Stage four ?+ ---+ ---+ -------+| ?<15 (or dialysis) ? ?| ?Stage five ? | ? Stage five ?+ ---+ ---+ -------+ *Each stage assumes the associated GFR level has been in effect for at least three months. ?Stages 1 to 5, with or without kidney disease, indicate chronic kidney disease. Notes: Determination of stages one and two (with eGFR >59mL/min/1.73 m2) requires estimation of kidney damage for at least three months as defined by structural or functional abnormalities of the kidney, manifested by either:Pathological abnormalities or Markers of kidney damage (including abnormalities in the composition of the blood or urine or abnormalities in imaging tests). Lab Interpretation Abnormal (test code = 61444-0) [facility] METABOLIC PANEL (NA, K, CL, CO2, GLUCOSE, BUN, CREATININE, CA)2023-02-20 01:43:50 Test Item Value Reference Range Interpretation Comments NA (test code = 140 mmol/L 135-145 8194928265) K (test code = 3.8 mmol/L 3.5-5.0 5700088188) CL (test code = 106 mmol/L 98-108 0310930080) CO2 TOTAL (test code = 22 mmol/L 23-31 L 5444816849) AGAP (test code = 12 2-16 3087058066) BUN (test code = 64 mg/dL 7-23 H 4067214808) GLUCOSE (test code = 167 mg/dL 70-110 H 4412863831) CREATININE (test code = 2.52 mg/dL 0.60-1.25 H 1037106436) CALCIUM (test code = 7.4 mg/dL 8.6-10.6 L 1761175158) eGFR (test code = 26.1 mL/min/1.73m2 2916931240) MIKAYLA (test code = MIKAYLA) Association of Glomerular Filtration Rate (GFR) and Staging of Kidney Disease* + --+ --+ ------+| GFR (mL/min/1.73 m2) ?| With Kidney Damage ?| ?Without Kidney Damage+ --------+ --------+ +| ?>90 ?| ?Stage one ?| ? Normal ?+ ---+ ---+ -------+| ?60-89 ?| ?Stage two ?| ? Decreased GFR ? + --+ --+ ------+| ?30-59 ?| ?Stage three ?| ? Stage three ? + --+ --+ ------+| ?15-29 ?| ?Stage four ? | ? Stage four ?+ ---+ ---+ -------+| ?<15 (or dialysis) ? ?| ?Stage five ? | ? Stage five ?+ ---+ ---+ -------+ *Each stage assumes the associated GFR level has been in effect for at least three months. ?Stages 1 to 5, with or without kidney disease, indicate chronic kidney disease. Notes: Determination of stages one and two (with eGFR >59mL/min/1.73 m2) requires estimation of kidney damage for at least three months as defined by structural or functional abnormalities of the kidney, manifested by either:Pathological abnormalities or Markers of kidney damage (including abnormalities in the composition of the blood or urine or abnormalities in imaging tests). Lab Interpretation Abnormal (test code = 53778-3) [facility] GLUCOSE (AUTOMATED)2023-02-20 01:23:47 Test Item Value Reference Range Interpretation Comments POCT GLU (test code = 0682512577) 164 mg/dL 70-110 H Lab Interpretation (test code = Abnormal 02848-5) [facility] GLUCOSE (AUTOMATED)2023-02-20 01:23:47 Test Item Value Reference Range Interpretation Comments POCT GLU (test code = 7479381120) 164 mg/dL 70-110 H Lab Interpretation (test code = Abnormal 32435-7) [facility] GLUCOSE (AUTOMATED)2023-02-19 22:57:22 Test Item Value Reference Range Interpretation Comments POCT GLU (test code = 7885539071) 166 mg/dL 70-110 H Lab Interpretation (test code = Abnormal 90714-0) [facility] GLUCOSE (AUTOMATED)2023-02-19 22:57:22 Test Item Value Reference Range Interpretation Comments POCT GLU (test code = 5451505428) 166 mg/dL 70-110 H Lab Interpretation (test code = Abnormal 55372-1) [facility] Test Item Value Reference Range Interpretation Comments MAGNESIUM (test code = 7489135494) 2.9 mg/dL 1.7-2.4 H Lab Interpretation (test code = Abnormal 79664-5) [facility]12 Test Item Value Reference Range Interpretation Comments MAGNESIUM (test code = 0847362416) 2.9 mg/dL 1.7-2.4 H Lab Interpretation (test code = Abnormal 08847-7) [facility] LACTIC [id number] 19:39:08 Test Item Value Reference Range Interpretation Comments PH (test code = 7.43 7.32-7.42 H 7938745628) PCO2 ANANDA (test code = 36 See_Comment L [Auto mated 6555565525) message] The sy stem which generated this result transmitted reference range : 41 - 51 mmHg. The reference range was not used to interpret this result as normal/abnormal . PO2 ANANDA (test code = 29 See_Comment [Autom ated 5787746545) message] The sy stem which generated this result transmitted reference range : 25 - 40 mmHg. The reference range was not used to interpret this result as normal/abnormal . HCO3 ANANDA (test code = 23 See_Comment L [Auto mated 0902978449) message] The sy stem which generated this result transmitted reference range : 24 - 28 mEq/L. The reference range was not used to interpret this result as normal/abnormal . AC VBE(BEAKER) (test -1.2 mEq/L code = 7701757939) THB ANANDA (test code = 10.2 g/dL 13.5-18.0 L 4273304716) %O2HB ANANDA (test code = 50.1 % 52.0-63.0 L 6932286298) %COHB ANANDA (test code = 0.8 % 0.0-1.5 9498403782) %METHB ANANDA (test code = 0.1 % 0.4-1.5 L 2143981306) VOL%O2 ANANDA (test code = 7.2 % 6.0-12.0 8911342135) NA (test code = 143 mmol/L 135-145 9369394235) K+ (test code = 4.0 mmol/L 3.5-5.0 5333951252) AC CA IONZ (test code = 4.30 mg/dL 4.50-5.30 L 9955231667) GLUCOSE (test code = 173 mg/dL 70-110 H 8038813616) LACTIC ACID (test code 2.21 mmol/L 0.50-2.20 H = 8600075844) Lab Interpretation Abnormal (test code = 35431-7) [facility] [id number] 19:39:08 Test Item Value Reference Range Interpretation Comments PH (test code = 7.43 7.32-7.42 H 9071148004) PCO2 ANANDA (test code = 36 See_Comment L [Auto mated 3675352403) message] The sy stem which generated this result transmitted reference range : 41 - 51 mmHg. The reference range was not used to interpret this result as normal/abnormal . PO2 ANANDA (test code = 29 See_Comment [Autom ated 9394674785) message] The sy stem which generated this result transmitted reference range : 25 - 40 mmHg. The reference range was not used to interpret this result as normal/abnormal . HCO3 ANANDA (test code = 23 See_Comment L [Auto mated 8100969778) message] The sy stem which generated this result transmitted reference range : 24 - 28 mEq/L. The reference range was not used to interpret this result as normal/abnormal . AC VBE(BEAKER) (test -1.2 mEq/L code = 9425734232) THB ANANDA (test code = 10.2 g/dL 13.5-18.0 L 3245491224) %O2HB ANANDA (test code = 50.1 % 52.0-63.0 L 2974859730) %COHB ANANDA (test code = 0.8 % 0.0-1.5 0128810718) %METHB ANANDA (test code = 0.1 % 0.4-1.5 L 3149730675) VOL%O2 ANANDA (test code = 7.2 % 6.0-12.0 4991181494) NA (test code = 143 mmol/L 135-145 3633067252) K+ (test code = 4.0 mmol/L 3.5-5.0 4341271097) AC CA IONZ (test code = 4.30 mg/dL 4.50-5.30 L 5462787852) GLUCOSE (test code = 173 mg/dL 70-110 H 2636400354) LACTIC ACID (test code 2.21 mmol/L 0.50-2.20 H = 1871169688) Lab Interpretation Abnormal (test code = 71676-3) [facility] METABOLIC PANEL (NA, K, CL, CO2, GLUCOSE, BUN, CREATININE, CA)2023-02-19 18:49:24 Test Item Value Reference Range Interpretation Comments NA (test code = 147 mmol/L 135-145 H 5818622168) K (test code = 4.0 mmol/L 3.5-5.0 7541225680) CL (test code = 110 mmol/L 98-108 H 7204573594) CO2 TOTAL (test code = 23 mmol/L 23-31 5438986015) AGAP (test code = 14 2-16 2983692245) BUN (test code = 66 mg/dL 7-23 H 6783171895) GLUCOSE (test code = 163 mg/dL 70-110 H 3101094824) CREATININE (test code = 2.43 mg/dL 0.60-1.25 H 3577070556) CALCIUM (test code = 7.3 mg/dL 8.6-10.6 L 7579748238) eGFR (test code = 27.3 mL/min/1.73m2 2804183280) MIKAYLA (test code = MIKAYLA) Association of Glomerular Filtration Rate (GFR) and Staging of Kidney Disease* + --+ --+ ------+| GFR (mL/min/1.73 m2) ?| With Kidney Damage ?| ?Without Kidney Damage+ --------+ --------+ +| ?>90 ?| ?Stage one ?| ? Normal ?+ ---+ ---+ -------+| ?60-89 ?| ?Stage two ?| ? Decreased GFR ? + --+ --+ ------+| ?30-59 ?| ?Stage three ?| ? Stage three ? + --+ --+ ------+| ?15-29 ?| ?Stage four ? | ? Stage four ?+ ---+ ---+ -------+| ?<15 (or dialysis) ? ?| ?Stage five ? | ? Stage five ?+ ---+ ---+ -------+ *Each stage assumes the associated GFR level has been in effect for at least three months. ?Stages 1 to 5, with or without kidney disease, indicate chronic kidney disease. Notes: Determination of stages one and two (with eGFR >59mL/min/1.73 m2) requires estimation of kidney damage for at least three months as defined by structural or functional abnormalities of the kidney, manifested by either:Pathological abnormalities or Markers of kidney damage (including abnormalities in the composition of the blood or urine or abnormalities in imaging tests). Lab Interpretation Abnormal (test code = 16163-4) [facility] METABOLIC PANEL (NA, K, CL, CO2, GLUCOSE, BUN, CREATININE, CA)2023-02-19 18:49:24 Test Item Value Reference Range Interpretation Comments NA (test code = 147 mmol/L 135-145 H 8332554811) K (test code = 4.0 mmol/L 3.5-5.0 8080659960) CL (test code = 110 mmol/L 98-108 H 2925530156) CO2 TOTAL (test code = 23 mmol/L 23-31 2509784352) AGAP (test code = 14 2-16 5480114831) BUN (test code = 66 mg/dL 7-23 H 4857817395) GLUCOSE (test code = 163 mg/dL 70-110 H 4924591253) CREATININE (test code = 2.43 mg/dL 0.60-1.25 H 3816723648) CALCIUM (test code = 7.3 mg/dL 8.6-10.6 L 1404866592) eGFR (test code = 27.3 mL/min/1.73m2 9358235602) MIKAYLA (test code = MIKAYLA) Association of Glomerular Filtration Rate (GFR) and Staging of Kidney Disease* + --+ --+ ------+| GFR (mL/min/1.73 m2) ?| With Kidney Damage ?| ?Without Kidney Damage+ --------+ --------+ +| ?>90 ?| ?Stage one ?| ? Normal ?+ ---+ ---+ -------+| ?60-89 ?| ?Stage two ?| ? Decreased GFR ? + --+ --+ ------+| ?30-59 ?| ?Stage three ?| ? Stage three ? + --+ --+ ------+| ?15-29 ?| ?Stage four ? | ? Stage four ?+ ---+ ---+ -------+| ?<15 (or dialysis) ? ?| ?Stage five ? | ? Stage five ?+ ---+ ---+ -------+ *Each stage assumes the associated GFR level has been in effect for at least three months. ?Stages 1 to 5, with or without kidney disease, indicate chronic kidney disease. Notes: Determination of stages one and two (with eGFR >59mL/min/1.73 m2) requires estimation of kidney damage for at least three months as defined by structural or functional abnormalities of the kidney, manifested by either:Pathological abnormalities or Markers of kidney damage (including abnormalities in the composition of the blood or urine or abnormalities in imaging tests). Lab Interpretation Abnormal (test code = 47397-3) [facility] [id number] 17:49:48 Test Item Value Reference Range Interpretation Comments PH (test code = 7.47 7.32-7.42 H [id number]) PCO2 ANANDA (test code = 30 See_Comment L [Auto mated [id number]) message] The sy stem which generated this result transmitted reference range : 41 - 51 mmHg. The reference range was not used to interpret this result as normal/abnormal . PO2 ANANDA (test code = 42 See_Comment H [Autom ated [id number]) message] The sy stem which generated this result transmitted reference range : 25 - 40 mmHg. The reference range was not used to interpret this result as normal/abnormal . HCO3 ANANDA (test code = 22 See_Comment L [Auto mated [id number]) message] The sy stem which generated this result transmitted reference range : 24 - 28 mEq/L. The reference range was not used to interpret this result as normal/abnormal . AC VBE(BEAKER) (test -2.1 mEq/L code = 7092065149) THB ANANDA (test code = 4.0 g/dL 13.5-18.0 LL 4248606845) %O2HB ANANDA (test code = 75.5 % 52.0-63.0 H 9166010210) %COHB ANANDA (test code = 1.3 % 0.0-1.5 3008714648) %METHB ANANDA (test code = 0.8 % 0.4-1.5 7258434634) VOL%O2 ANANDA (test code = 4.3 % 6.0-12.0 L 4973884008) NA (test code = 142 mmol/L 135-145 9841284923) K+ (test code = 3.9 mmol/L 3.5-5.0 8909633412) AC CA IONZ (test code = 4.10 mg/dL 4.50-5.30 L 8646334436) GLUCOSE (test code = 169 mg/dL 70-110 H 1531318892) LACTIC ACID (test code 1.99 mmol/L 0.50-2.20 = 2501699164) Lab Interpretation Abnormal (test code = 60245-6) [facility] [id number] 17:49:48 Test Item Value Reference Range Interpretation Comments PH (test code = 7.47 7.32-7.42 H 4762339529) PCO2 ANANDA (test code = 30 See_Comment L [Auto mated [id number]) message] The sy stem which generated this result transmitted reference range : 41 - 51 mmHg. The reference range was not used to interpret this result as normal/abnormal . PO2 ANANAD (test code = 42 See_Comment H [Autom ated [id number]) message] The sy stem which generated this result transmitted reference range : 25 - 40 mmHg. The reference range was not used to interpret this result as normal/abnormal . HCO3 ANANDA (test code = 22 See_Comment L [Auto mated [id number]) message] The sy stem which generated this result transmitted reference range : 24 - 28 mEq/L. The reference range was not used to interpret this result as normal/abnormal . AC VBE(BEAKER) (test -2.1 mEq/L code = 9907913387) THB ANANDA (test code = 4.0 g/dL 13.5-18.0 LL 1672650098) %O2HB ANANDA (test code = 75.5 % 52.0-63.0 H 6095173388) %COHB ANANDA (test code = 1.3 % 0.0-1.5 4616331923) %METHB ANANDA (test code = 0.8 % 0.4-1.5 0240903811) VOL%O2 ANANDA (test code = 4.3 % 6.0-12.0 L 5258991046) NA (test code = 142 mmol/L 135-145 0595888283) K+ (test code = 3.9 mmol/L 3.5-5.0 6946989863) AC CA IONZ (test code = 4.10 mg/dL 4.50-5.30 L 1129685078) GLUCOSE (test code = 169 mg/dL 70-110 H 2926697772) LACTIC ACID (test code 1.99 mmol/L 0.50-2.20 = 6002301305) Lab Interpretation Abnormal (test code = 58702-0) [facility] GLUCOSE (AUTOMATED)2023-02-19 16:34:11 Test Item Value Reference Range Interpretation Comments POCT GLU (test code = 7885257438) 148 mg/dL 70-110 H Lab Interpretation (test code = Abnormal 80975-1) [facility] GLUCOSE (AUTOMATED)2023-02-19 16:34:11 Test Item Value Reference Range Interpretation Comments POCT GLU (test code = 2999952977) 148 mg/dL 70-110 H Lab Interpretation (test code = Abnormal 42087-1) [facility] [id number] 15:24:20 Test Item Value Reference Range Interpretation Comments Case Report (test code Surgical Pathology ? ? = 8697833680) ?Case: [id number] ? Authorizing Provider: ?Luciano Long MD ?Collected: ? 02/13/2023 1218 ?Ordering Location: ? ? [facility] OR ? Received: ?02/14/2023 0823 ? Department ? Pathologist: ? He Armstrong MD ?Specimens: ? A) - AORTIC VALVE, AORTIC VALVE LEAFLETS ? B) - MITRAL VALVE, MITRAL VALVE LEAFLETS ? Final Diagnosis (test n9mhqPXdLYGie8ivCCFtkY code = 8931455673) FuZzEwMzNcZnRuYmpcdWMx IHtccnRmMVxlcGljMTAyMD ony0dll9nuiCHiORByb1ti d3VvvXDhqFVaTPfmtNPedd Vdbr94cXM5aP35IV6lONXa KcP4IWNlspV3Dha1GVOuGW DkwRZhX083g1wux4habqWe bNI0LDJsERPkG9UhLK8sNJ KdqVNyA40zqOZqBNB3YRPw ZBUueRRjLCQqFTW8IEQfsU DcJ8cnKQPxDA4ghmwkGFmt JVstCLXwoXB2YCAejEFkA9 PgFIMvEFpsAGQgued0EsXk Yl4qiZRadUkbPRepSEMyQK 2vh3avY9CpvNClXKOaNShu XGZzMjBccGFyXHBhcmRcdH j2OgXfjTxsTXLoBUX1DzX6 QXb5mFI5IZVqjOcbVkFfPI Z2AYHjIUu2xQXcAXHpqDi6 WiCfTMV3MlT2BGt5kOuyMR DljPa4QMPgCGF9RHQ6UQy9 zHjuQhScxYmiTGR1MQzvHT AcNUMPQtYFM1YEVFSeSqLM VkUgTEVBRkxFVFMsIEVYQ0 aTMV3CZXhRT0QfIA3JBMtT LPJJOVVRZJDWGZgML2FAXK 5UKTpccGFyICAgICAgLSBW QUxWVUxBUiBUSVNTVUUgV0 tRLHPTMBuEXTLhOBXQNB2S QrKHLO7CNXIFW5ZZWVKLAK TISLAIUmwOLZKRD53FGAPv imScBCTjQIRnGH6MXCXKZp KDP2tQDJNKC56IZGADIO6E NPkMJJonS1DVE3uYRVRvOC 8BBYwAXEOMLL6AF8jSJzpc SKKyiCPwLEink7byPKD0wS ZgoircCTSipXTmHDw3vPdj JAx7vOF1UPUcaMsoGVUwXN L1Mlb0WSr6rHM5OGGxdEa9 KaPkDYL0BGS9VFd9yAU5Oa PfjFx5YKqlZRH3BbKmFAe3 sXm8GnMpeBm3OtLgIIB8SP D2CIo0kRYlYWtxOMIdFD0N VFJBTCBWQUxWRSBMRUFGTE VULufoLWdOBONLX38pFDUb UCBNSVRSQUwgVkFMVkUgUk BQJAGAYB9DFbWpCwyjBAIz ICAgICAtIFZBTFZVTEFSIF WPJ2PJKOWSNFGCFS9VUC6C KBDDOVcXPkRCVGGCQ54wPT 5KUOZTGgWNF5zXWHKZX28E OYOTQQ4CJSLbomIvTBQnFL YbU9uKLJASGGHKUUxfGaCS PrSjL6SOIi8KFLXjFBVtgl zrUGRiYI7gw5jyR2LyfDNy XGIwXGNmMFxwYXJcZnMyMi IFt4JszQlnN20ureEetSdk TUQgIDYvMjAvMjAyMyAgOT h9DWLGVFnvZAAeLfYyETod UAJ1d7riiJDjNVAibWIuPy CbECFaLYWat1rlEMCepTSs ZzEwMzNcZnRuYmpcdWMxXG QkTyBvz5gcp138mURfe8lm KQIiBkJ7yUCqZECdiOiorw t5lMxzGqOrZZZrr0dcraUh ZmNoYXJzZXQwIEFyaWFsO3 28WSFwIWiph7nqn5GfILPh fRGnm2Y6SQWGQHzvBeFuX6 91b6whp5pujmXohGC9OLPy OHH0GUgdtwRatpJ0HYviwR EuDmJ4FWorzfAqCSlrmnTi skWnSmw0FDFaB239OEU2nV msk9gdIHE1RVScXYZiFlbv Ff7xkQSbS064MMTkQEZHCG NkvCt6GZGqxfZbdfKxsMFS y054D296t2ijELAfdsYozQ wLhjzsd2gmY377TWBpfGDb hiKkPdQqMOFdcBRxrYU9CA VrMC7qhwluMOnzUBidRUEl zwN5SACzuKFoR8YpZMYmIV 3sdgioCDL9DHelFADoFQM9 CqYxZMNyf0Miaot8MbXgmm 1zgg69CWI4z7SjqXqdLMK1 BGY3WpMcHu6byREtIMTjHI 7rChDdtGAuSBMxdo22nKtq EQcwqxLfzX6dHvOpMTAmzB ZyPVMgEB9voZCrQQFyoK6u cmxjXHBnYnJkcmhlYWRccG bbrgHyAm7ehTgfIID4LVug T6jwkZ6xSyX4YYopM4jlkS 0lILw0LOtweRE8DCMstX8e PV2uwlrbp9wyUYmxNKcsYU GgjpD8oxK0ZLHhdMRzV8Jy pZ1vSMHwLS5mwmcij5wsYF V4GEkyRPCbWZK6SnXzWUGv j6Pgqhv3SmOmd0JtnYHxEI dnU13lv475JTDnnjAaQ9mt bGFpblxwbGFpblxmMFxmcz U4BVFwAHYbVZziTDMoBINx MjBcbGFuZzEwMzNcaGljaF rwQKnxFjUnUTBeHQxyS9hh PeHjE6SgPKIdBuYgnBFuTJ nplOC4UGRsWZQax59ipGv7 KWHvmvydx1ZfDJOqcRXnmU KyxM5uyvGip0dbXSLySHYn IBGxK7HxVAP5uBCwVQOfbA YglKA4SJ9wcoBwOJ1xNTLq YnkgcmVzaWRlbnRzLCBmZW biw6riLN5rEFKapYkmlV8e kKB4JTBdj2vlyXHasTTmc7 dfg5LzqmFsRGibSKJiMBal QHOlWNLqYN6kQOCwpHRjmf Wod8C3DciixHSjyburTmlu asF2SQiddwlzACVjPIylI5 flOtZgLWGerCayZctfd6Rk XGYyXGZzMjhccGFyfX0= Clinical Information Mitral valve stenosis, (test code = unspecified etiology 8892890568) [I05.0]Aortic valve stenosis, etiology of cardiac valve disease unspecified [I35.0]Coronary artery disease involving [place] coronary artery of [place] heart without angina pectoris [I25.10] Gross Description (test j8cuhIJcCQLpcGDBBPUfXS code = 5038462671) MgLG4xyWzpfYr6iDllQKIa gcC0tQZbSCqsr2djUZE7k2 jiwcZOPmiaSPYtCB6cNOuj JUDrRY1iFfXkVBRkVuPiEC BhcGVydzEyMjQwXHBhcGVy xJS0BLXmQE2lztbtPWpxEG thZEGzxmN4TTUumSBlY7Wy DFHcMJ8xsezxIHX9MZTOMp osMi1pdSOzjRkbVqMxXyEa YXJzZXQwXGZuaWwgQXJpYW w9aP3OTamzILH2ANUGWqhy AwbmxHgap3KmuCGyIDXkEY xcaWQgNTEwMDAgXFxkYiBP LqUrUoS5OrFeVgX3AoB1NH e4BQOXPQOxFoo1ABQpAXB2 ZTn4NMXjJU7wXLrclDPwAN fxNgjoXVmbC574YVegLICm C6MeD1RcMUqpMaWfAFxiPC FnPPBbODccRRDtG2SMOYQm VvpeFVLpJEGrYOd8LJwjZ0 KJNYIeKGEjKwY5ZkY2OkH4 FEc8UYEBRe9sBLjjNVfyNC IaDKV5QRa3CSYiIAObUuLb AZBrQGVhZYxitYAqPV1bsK osUXAmCM7NYOJgFHuvVSTy KyYhA8VTD4vUFD5mHBamTH IgDQpccGFyZCANClxwbGFp tleiukBoXPm5cxWhNQGdPf VyXLReD79kp8WAw8JvLS6W PAb4uiWggeroxZ6eNMNtbn Bvm6AsNJawfSjgVWWaOxRh FDgWxLZlpR5cchPKYBlnCR GdG6RcjwItXEQqBFGyMDjq TaTdOEBus5t5sER8oJBtyI K9cCTcnYrrFC2dsYFxDNFW DE74pIIvyqadYwWohhMyGj X2BBh3MBSvHWTejUB5xtOj BD6vADWhpiGoi5FhCM4kSU UbmZDpOYgukZrriqOwtd11 hRFqQCdzvTPbjKK0LRo9BU OfRf62SHycPe06OFooBY80 JDTvSA2cTGymMPZtORXyxP QfGYbtWHJdwaqdlUi4IURb S9Iwh14cPBN0mgMvFEMiNI wgdGFuLXllbGxvdywgdmFy aWVnYXRlZCwgcnViYmVyeS HuhAVxa2EcPgQtDYZpo7y4 aQ63nFZhHOypgJFkY1K7zV 9mKsIyB9Wcr8WzvBYiuZIp hAQikV56s1wtTDSpufUeup NtsVTqSW3jHJVUBSDgYZYj yhGmdEo8DFGnXCV3qZ8env QpdoFrs0HczEf0jNNqOPuq ACXuTg0LEDOnqFHLTXF6YW 7uJDxmDFHtF8OvF4UmgwS2 XHBhciANCntcKlxlcGljc2 VjdCBcXHNnIFxcaWQgNTEw NIFxUAnoHvGIVgOlMlK6Rm TyHiC1VrX4AEb3EEWBVtPe EjLkNtI3DFKbQRVlSCb2DV y7GBnMHxFxJEUkALB4Pxw1 ZFZ3GWrjBXwnuWOzBAgnj7 SfXeXsGGYyUUkopuZ0TMOn gqWfr2XwGJWoPIWyH2pkHf EwNSANClxmczIwIFNQRUNJ OGBJWXEcdSFwAF4QTRAlix PoDJxuwQksoQ3ijVMnD3xg ZnMyMFxmczIyXGVwaWNOZX O8MR0oVYQBUvgslCRcASSu nVvbHXkndX7kNANmBrJjNB GzV3mjHaFxCA0MA0ZzA2oy PH5qOYFmblUsLPPpfKVfWV BmcmVzaCBsYWJlbGVkIHdp dGggdGhlIHBhdGllbnQncy GzQO9tFYNCOCSzqZ7fWIXn ICJtaXRyYWwgdmFsdmUgbG GrBdxcbIMaRGFaCZZtu85t sKS3xhLzGqTkrFi6iFZpIP R5FT8qzAKhhV51FPhaoiIe dWxhciwgdHJhYmVjdWxhdG NfDBUgEhAzgAauq0CnUVNy KHhiGM84caKjerLhZ3cfFn Nvjn3gOGEuNRQ0qdDhQnBn G21ujR6pR1PvJBJvk8LgBY qbJV3vtP7xXPMlXwBuiVKv BaLcqZSlCtoxX83wkU9rYC wpclUzSNNpAY1cYJjcAKVs ZWNpbWVuIGlzIHNlcmlhbG n6BJNgU0Clh99pHJT2zuYh ZXZlYWwgdGFuLXllbGxvdy wgdmFyaWVnYXRlZCwgcnVi XkYjfUTzmVMcz5RvZjPrOG Mfu4e6wI15qEHpLAuapMCs H0W3xN9oCjXOFLMsKUSjvr PadAc3RZQrVSO6eV5jxsPx NaChCAHgWQDsPCeeEE92MQ SwACVasTZtzRU4KWVgxS8w QjEtQjIuXHBhciANClxzYj BqWSCcO1xbGwNjXZhoyYCr BQ1HWHNgEuIlJBGnL2mxCD WaLZ2XPULttFMOYQmcs4Zc YYlvIKVrMGYNK8LuLQxrFX YcN00qu5GQu8Dtq4eghBpx j2MsaPOtMW26HGWaaFPqZH P1RA8rvUtdAMBhVDdtsVLu ZCANCn0= Disclaimer (test code = p9cpdCVgYDIqm4sxXGRopB 0053037832) FuZzEwMzNcZnRuYmpcdWMx DFcqwkDyFDfgs2HbT6WfTe AwMFxhbnNpXGRlZmxhbmcx BDYiIHK1fkZqRUBqXJtoUI PgFBwnKz8paMXwrUezImBp NUOxs2xyibKDBOjnLbWrB0 22UJFfPNxua2iju1HiDBCg tLArc3U1ILMJfukstLl4uC piV70wf6W8NvfsP7pmMZFv AMMoL1XdFD6sRDTrSfu8DW C7JLD6VVTsPFNfF2UaRH5h CEQbnBIoLDf0x3rjaXxmLB PiQQB4d8onOHeyxcTuFW6x vh8bePm8n2diwsBeHPEoRC WhqVPFNOYeQ0LpjSzuUz8x dYo8yMjcEmbqETO9Nip9IW 7zcz92bip5xNdcISRwgbtd OsR9OXybGCNfspjaDHu4VW gmTVBeiBY1DZBidRZwV9Bv LYYtCF0kszo5AUR0IBcrNM VlNqS5VWLptGIbIGYbyZrx JEaps643SZP9IcOuQW7wY9 Jex1J3vK0moSNhZDUylIYb SmOqNGHnyh8owRKrASzsw9 TcQNE5ovP7pBEscJTdVTJb MV80Efwkj6OyVprqr7XeD7 4aoPB6DLbsh5alWZ7nJwP6 vxEhIIeqb2ftzS6rJwM2JT nsIB8wEL7xXDKmuR4gceut XHBnYnJkcmhlYWRccGdicm IiPv6vxOzjOTU4ZVzbO1ah fM7jPfI7GCqcI5ogrE3zSM x6ATdjeWE1HHRczE7rZU5s njhkh5tnTRokYJatNTBqeb Z2yaU0SZEusFSrG9MrzX6f BBLjUX8mayiir7iaBAC1PH fgRODmUVU5FiXeDXLqr2Fi nrp3UmBzq0VkaUPwCFklZ3 2pt685WLKapnLkS5nozLWf xeglmFHovqtdOZeeghW1ZG TshmXgo1TlOZNuVWL5IDke TCipmOHhSBFtkRcfr8axI9 RscGFyXHBsYWluXGYxXGZz MjBcbGFuZzEwMzNcaGljaF loRUpoAzCbXKYdCTosX0ww RyFpR6PkVFFeKhBkaLByT6 ggVGhpcyByZXBvcnQgbWF5 QRteS1p5OBWzikGupJh4ld QhPtUnBTHuGOU9OWabzAZp EFHdf4RqwjvqfRPaTk6yhH IiUHWtaI5vDQNjJUCuYTxn JC5tqMc6CTMCwYPozWCjSv PFPULkXL08orBfGXJQctrp q9T6GLjkCVTkw7HqsPMcU4 uhm7XlAMCue64sBG2km5L3 b0npMED2FO8er1IkONGefS PwiGNjJBOix3Urltapu4Yt MLTjfzZbo0EqTHEueeLtnT QgKBXoeoHwks1jqjKeMCBa CAQtT2TwakuizGkksmEpKW Dguk7iwdPnNNT7ONMXCPNg CHHvv8TtjE2bzRKIEFR4hB Arwq8jgpTHhOZhUARggj74 BRRzRZ5iT9hhVTEbNMAsbt ZldYBhj4BhIQNiuTA8dZNe NP8NYkSRd28wNQOjHZNZdh JmUCNchBbiaXV1fnI6tD7l IChGREEpLlx+IFRoZSBGRE BcUM3tuoMbi0QcxrPmzTac VSSiyRYnn7VrgHXmk7BtmZ bqo9CzlICizBMeKQ8xABDq clxwYXIgVVRNQiBMYWJvcm Y2d0LzQDKfSRGlXCB3xSfr evf9HETamH6mZBAnY4iqzf xqQGlqBRXwz2EhrK2vdVYH wNKut5WpxOYnnKYAhSHiLH 5kveSiJUiRQCvCKKB5clHp IGLsj0FrWFkmV1poJ78rnO sfvBc4mZX8CKK2mS6rWxl+ IFxwYXJccGFyIEFwcHJvcH ZeKCLjtWjtneVvB3GaltKf oD8hsRYeaaAiBV9qVN7rH5 L5aWTjTMNygrOjy6yfNZvd dmUgYmVlbiByZXZpZXdlZC Jyw9IqRJgnWMQ4YPfohlRm bmNsdWRpbmcgSCZFLCBTcG RlyRKdEAX7FMelimYggjTp IC7ruI1cnSmlrW6rhRObuP N6jebsQLYqUAIhaZzyQDFs AD5nqVZqMUQogsUVyOjquQ ZdkH1dA7AcJQNtCOIdwn1k XBZqtR7rTJzaz9QxljosYG QfVXRyGDIctpCrfz9xPTCm bFEAKI9MQVzcrDWdu9Hzjd IfL5tMPTJ5DOExUuAbNnuo GUDolNNrzSVkFMWuix18RR BbnP3rxJsqLMLwtP9dsV9a wFundY3bXuBjSuHlZLubIN 4xKXGsM2nwgSTcIXUtAKRq E8cmDgBrzZ9hfCxuRNugEe FsOnMsRZztJHC3hO== Embedded Images (test code = 8297726142) [facility] [id number] 15:24:20 Test Item Value Reference Range Interpretation Comments Case Report (test code Surgical Pathology ? ? = [id number]) ?Case: [id number] ? Authorizing Provider: ?Luciano Long MD ?Collected: ? 02/13/2023 1218 ?Ordering Location: ? ? [facility] OR ? Received: ?02/14/2023 0823 ? Department ? Pathologist: ? He Armstrong MD ?Specimens: ? A) - AORTIC VALVE, AORTIC VALVE LEAFLETS ? B) - MITRAL VALVE, MITRAL VALVE LEAFLETS ? Final Diagnosis (test o2ozuWRgTHQtr9dxCCEokR code = 6238299569) FuZzEwMzNcZnRuYmpcdWMx IHtccnRmMVxlcGljMTAyMD liu3etf1cryYEiGUZxk1iu e6CxpSFjcGVyUVaefHZmzo Ywue94zLT5gQ05UZ2mTKXm EqH1VWDvytK8Rxp3XQIaIY LjcPSeX230k1mze3fpliGc fHB3UHEhXYWgC7FoQI5bFI DsrDJbC47tyVDmNMZ4FFNl TOAuuNTpBJMuZTD3SZSkhX EjW7bsBEDzWF0cntojVCmq EHgtCSRbrWA0GAVroXDvG5 NfFYLqQYwiMPIouyb7FlJf Ik2teJLxkYiaRKkqIMEdST 7hl2rtI2XftTWeEYFnDUdx XGZzMjBccGFyXHBhcmRcdH q3LdTcfIwrEOKhLAD1YqG3 GNd2sII5HSDyvZltStFxYS T2LGDhAVc8nUTeMOLzhOy3 GoXoWDJ6PwK6NZr3eMmhGM LhiGf9PUZvFLU5YJE6IQx0 fNsdPrFgeBlhURM1IGfgYA DrRAKISzFUG4FPRPZcOxDK VkUgTEVBRkxFVFMsIEVYQ0 vRKJ3KQLeMZ0UuML1XKHzX DSRVMSLEALKPHFvAF6QJRQ 5UKTpccGFyICAgICAgLSBW QUxWVUxBUiBUSVNTVUUgV0 xUHZQBADiATODdZQFRJB4N FiUTZR7LTQLCT4MIPIKQKD CULEKJRewPPGRXT63MKDRz muEnRHAdYYPxHC6FPTASCb RTC1mCRUTVE95OHJHBTH7N LYeUYKvkT5NRF7oFOPZcPJ 0OPYdIQKTTXX2WU1zZQmxf AEMinUWjHAdqe2ahBBX4bW CykhnfYYPsoOGxRRg8oErk NOz7gTZ7QUQvbAvuSMMiCT A3Rii1CWm6xIE1HAOxeTf3 ZoBdKVA1GXD9CLb6qGF5Ag OzcCq8SCevSXB6NfWzLAz1 rZq0ByTqwKj7LfYpBTY0DY L1EVd9uEUwRMasYRAyTP7E VFJBTCBWQUxWRSBMRUFGTE GFWxotXMyPNYLVO96uLPGf UCBNSVRSQUwgVkFMVkUgUk NWJUXOLI8TUrOcUzrsDDCh ICAgICAtIFZBTFZVTEFSIF JVD5TCFQOWUQDKWI4YLT4Z INMITOsUVuOVVLMGH76iVP 3BJNFBWwBQL1uUVYFWV38E JPEXNG5SSYJvzwXqWBXgOM DfR1sEAVCFAHJQOHvaOrXW OeBiN9XDAq5NVHVzLCLgkp bcVLDuVA3he5xnN4UqgQTw XGIwXGNmMFxwYXJcZnMyMi PPe7KddZhtP84fxaAfcUas TUQgIDYvMjAvMjAyMyAgOT a0SCCGPXjmYWDxUzQfRYlu ULF8o6roqUPnCXZyyHJiXa NgNAJeIKLkk2otOWZmzBCj ZzEwMzNcZnRuYmpcdWMxXG CqPxWvl6wim664pGVpz7xy AYBgZfX8rATzHZJyoPsswt g8jJbuUrGzVCTij4atxwMk ZmNoYXJzZXQwIEFyaWFsO3 93ARHmAUfhg2tfb1VkVIZg wBIai9D5JVGQTMprNzJaJ8 45n4asi8fkmvZkwHD9XMAw ABK3XYdmwpXiwuG1ZNhouA QlLoJ1FVtmdmJjMEldifLp gcLhEvy3SAQuY440GXQ0wC ytx4coNBQ0VFInYCXrVwfv Gy8ujMSfU542MUFtNKZUXN IniWq3VQTnwkQcegMibLZR i894D647q9pdQDEulrPpnL wRpvret7yhY737ZJCltHEr gnWjOaBkTTCucBUfiPR7KZ RdUP6kttzkMVxbPEfnFDBl xtA3TUQasTVaC0SnLOWbLX 1nbyroJXV1INhrAYOoLRQ4 YmWbAZLzo0Nmmyp5DhDfzw 1kob59RDQ5f6WvlLupNCJ0 ZYO6ZyCwRl9ncFXoSDCjLZ 1gIzFbkFObQFSukh97jIch WVwrkkDekL2fUaDxNVAatF ZuHYYcTS6ebJChWLBngX3x cmxjXHBnYnJkcmhlYWRccG qlmkVfUn9dwVocBXI7WXkf R1dbqQ3zNsY3FMwyG4kitH 3zADf6ZNfpzNO3WPBasS9e OL8qysjdv0twRDqwLVbhGW FsrmR1hnK4GMHlaJUbZ9Gu xZ7xESBeAP5wuidgj3osHJ V6CXylELBoBVQ0CrXjFCBz q8Ajuyd0GwXwn3IvuXNuBK fmO65ye129ZREsfpZiD7cl bGFpblxwbGFpblxmMFxmcz Q2XVBdCSEzWEhjBNTuCOOa MjBcbGFuZzEwMzNcaGljaF neNMvnLfUpYKViKAiaJ3ln QbIcE4OgVYJjWpChzZWuGY xehDA9BURvTFIzn88qrSc3 YWBekhpfm3MfTMObxGTutQ CfzQ9wzuMyp9zvYLXlTKIq VATaG7KnFLW6tNEkCQDhmU ZvfSM9AJ5uqpOxLP1aXBEd YnkgcmVzaWRlbnRzLCBmZW bcr2cxCW5mWXHpvCbibV6i gTW5METyl8jihAVipXHbk2 gxs5FkasVzIMhbTKHyVOah NIAoHBIhHA7fZWClzUCgif Roi6W4OpomoCQrgmofYfnv vhI9RTiaokabTRQaVWxtP8 juNmRiSYImmKtnClmru0Aq XGYyXGZzMjhccGFyfX0= Clinical Information Mitral valve stenosis, (test code = unspecified etiology [id number]) [I05.0]Aortic valve stenosis, etiology of cardiac valve disease unspecified [I35.0]Coronary artery disease involving [place] coronary artery of [place] heart without angina pectoris [I25.10] Gross Description (test s8nkeJZtJBRmuWMRPOBiAJ code = [id number]) YbRG1hkJchtUa1kMzrCQSj ndF5oNAvLNvbm8nvQXG0y4 wcosWMOmwcRVPwIF5dLFoj CTRhSX9lAiUgINBtLwJkHI BhcGVydzEyMjQwXHBhcGVy oSD2POJcZC9mozjrNJpaGG ioACLppaO6FRUceSRkX3Wk TXXwIY5pofhvWKU8BKLKFn bhSu2xgFUoiGgrCwQoOcSv YXJzZXQwXGZuaWwgQXJpYW h4yO6QFmdlTRQ2MJWNCdsl XrtpiGcuh0EwhKSiAUTcMN xcaWQgNTEwMDAgXFxkYiBP JgTwDwT5OiYzNzZ1YuS7HK u3UACCRVGkAuq3DKQoZNJ2 OGt1DUMtOE3fLFykiFZpIF gfJvoiKPriQ061EOmvMOPu T5FlG8ZdARhiWgHpXOyjZC WfOGVvQDvfAHZvE2WLQBZy GleqQIYuZRYfSOe2IFthH8 RCUEYbKXIxYtK4PpD7NxB7 TBb7HURBGv5eNLozDUhfWQ MwRSD9CGi2ZVGtMZUwJnPu ODAeMWWzICbahVGoXS5lbQ yxHYSnXB0EYJIeVCnbBECz TaBwK0TNM6tTRW0xYHscCX IgDQpccGFyZCANClxwbGFp cdgoarHeYGd7ocYhQIZqDx AnDFEiJ87wu9BBp7HhXU8R GEk2poKvgzmaiR7tPCSbkb Kix3SdFPojrTzmRNLnRmAm WHyRuKHxvM0yhoFJFOwpTM FvL3WqilNiLDVdESXbRWyo TyHtZKGdu6q5cRC1yZXymJ J7kGTewGouXB0miONuYQDJ GK45wWRryvfiAeBjwdOeGg M1GVi2DDIfOQBlgGC9bhVd CI5qSGTipiSog9EkIO4vQL AhcPZlQJbriPvzhvCubo11 cWVpZWireYQtsWQ7JKp6XX FlYc58IMrkDz00NDvsHL17 MRKnZJ3bSYlpNMZpJJYpoR EqCEgjNXCipkbueQu8SMUc D3Nrs75mCBF0arLiYHLoIN wgdGFuLXllbGxvdywgdmFy aWVnYXRlZCwgcnViYmVyeS GcpDUdp2JrAdZtDRQuj5o3 jP26cJGtTYqbbVRcR0B7mU 5vWyEgO2Usg8XdfJRxwIWt jHPyhU68o4ctJORpheTkhp OpqVEjEN1dQPXZPVEpNBMs uwZtoOp3YYUbGDU3qF6jsw XscqZnc0WfqPs9uPQgNBaz ECVjKf2DYYKgzYHJOXD9LH 3lBWxhFOTuI3XcR7GiksA1 XHBhciANCntcKlxlcGljc2 VjdCBcXHNnIFxcaWQgNTEw DWPxNFjfJeONPtIdKhN7Bc AbJoJ1BzT4EJp8HJJNXwXp MhWfYqI8CSCyBZIaTZo2FP r1ESnQWrIeSINhPOH0Gcq1 YXP0GVjqNZydtYIvUCyiz8 YnUhTuEOOwODvtenN2QGOy cwNfc4IyPCBsUQCnJ2zbPn EwNSANClxmczIwIFNQRUNJ QVNFIYUetILoDD3DBLAfrj MvUYrcxZgizW4qvSYjB3ja ZnMyMFxmczIyXGVwaWNOZX O5UQ4qEPOCZirazFWmBLZx yNyiRHpnvY6uABEmIcFjJX OkT6pnIhOhSZ1TE7SrQ7ne AZ0gDCBczrEtWUEtfPXwQL BmcmVzaCBsYWJlbGVkIHdp dGggdGhlIHBhdGllbnQncy InDL5bWSDJQWZyuJ5yPPTr ICJtaXRyYWwgdmFsdmUgbG EkOgxykVRmGQKpEYAbl58u yUM2dkHsFsDztVt0rTIgUM I9ZQ9bmHLjmI72MGheegFh dWxhciwgdHJhYmVjdWxhdG JdAYQpHaBrfCebn0BrSFDf AZhyBH75vdLmjtYxG5vqNd Uohz0gWMAmUBA6uuDaZzDg L61cnW9iR1XlNLRpe8PtOU kwWF8nlM6uZHOoHrIpfNAq TmGpjRHpJxdqQ65otW5cFR orztOkADUeWY9vUTmiPERp ZWNpbWVuIGlzIHNlcmlhbG d3EZLkF7Hbm97tJTK3rkLo ZXZlYWwgdGFuLXllbGxvdy wgdmFyaWVnYXRlZCwgcnVi BxKcrDFyaNQxb7TxNeXbSM Upb7w4hG64pYQcNTueuNZc F3J1yM9yKyLYHUHmVTWmtv BvqQd9DKNhCXY8wH8tkhAi CuOhKJKxKAZpWOezCY62XH BlIVMqqZObuML8HFGuwK5t QjEtQjIuXHBhciANClxzYj OzASBxU1hsQyGvTDzbwDSe LV9VUDFnYoAsXUFuT5vbVT DvME4QLPLvrLPMXMdbm7Fl UEobYWZxRITXU8BhRSazYB KpB30rf8NQl0Dad2tlcHwy i5FsyGUcXY62DVEzkFWuHF N7CD3hqBqgGKNpNMszjFUu ZCANCn0= Disclaimer (test code = l8ymuTPuLGThq5fnKWUwqD [id number]) FuZzEwMzNcZnRuYmpcdWMx YJlcigFiCXwal9UzD4SfYa AwMFxhbnNpXGRlZmxhbmcx FNWlFOG5etMoZUBfXVofJL TeYRslPz9arOIhwZyeNpOf MGEml5ourpWLVRaqGtTqY3 88BZJhJYlzu4rqj2FuKSGx qCUxf7H2IUXIatwfnEr5lB gdM66ld7D6JaytM1faFPYu JXDmS4TdGG6bWRVqHuq9NB K8HXS7QFBcJTZwR7AhXC0c LNVteCSnMMx4y5gmtIhwAA DrFOI1i4grLFtdqhMjQV5y lu2hcEv1j8miihWhVSJnIA XnbMVNEHZwL5HanBdlAf3t vDc8eXpzPalqIZA1Paz0DX 3fkt06gtw8xBfvWAAjirjs RcU3FYftEUNjolvbQAe2KZ xjEQKhdFV0GDJurEKuF5Kz TLTaSU0kzzu6REH0GZbiKK GtBkY9YXLuyXGhLTCyyLni ITabi210LQB5UvHqMN1hC3 Kbo6R3xR2vlOFtLEEwoMZj QyDeLLLknv9mkUTmQEvjf8 UgYAF5dzP4nGNkoOBwUMCm MC04Qrwut6NuClrrg8FdF5 5uxCC8GTavf5dyTT6yVrX7 kpVmKUwuy3mqcW4tZkY6HY diUA3gKQ3qGSSxvL6bgdbt XHBnYnJkcmhlYWRccGdicm NwPz7rcLidXAX5EWpvE1lw xP9dWvB1XDdaA1qgrX2kPA s6VEhtoHX6ZXGmrL0fEK8g gytyr6zpCJrqYJjwDBVepo C9cvQ3ZZRngGNeE4GbvD0d GNXqFG1myupqg7omKEJ1IM hrSXVyIBZ4UuUhKGKnj6Gx hdr9TeVji3UxrOAvYPyjI1 0wj069LLWosoCsU6wcjXUf jfiklIMkiwkwCHspiuV3GX WlzgZbm7UpMOSgIPG3FCjp BKoepWKbUXVngDwby5ccY4 RscGFyXHBsYWluXGYxXGZz MjBcbGFuZzEwMzNcaGljaF bfIBleSrBgVGNjQOopV1og IcDkK4HsZZDjKnWmaOCfV8 ggVGhpcyByZXBvcnQgbWF5 UMbqM9p9UZHvgbKcwXl4ic GjOoBdHNDaNAM4QKludGQi MTHag7PvtsuqqEAvCx9nzN BeTLYukW5eBYQmPDZdURum TE9wzFp1BDYJrXGepSQjXr TTEOPmXQ79gfIpWXDLnogc w4U6RCywKOIeq0VluUIzC3 ikn5XwGLJek72mGJ2gi8Z5 r4xdRQZ1KV1qe3RsSTJfeR XxsEJmCMDdp2Vzlbilg5Hj UCJtvqGlr8JmLQSaabAwiM WeEWWtegJsoz0lleKiNVKv TXSgZ5YmocpvwGkcmfKfIJ Xrko0izjQbITN1TVNUNFUd PAFvz2YiyV2vxAWIRLA0yB Nvrw4awoICgWXyMVSzda55 ESNdKT5bP6jpNDRbEVUvgn KrlYRdx0TaYOHvzXN8sCOd CP7LXoYWk54fFYBqLTOAci IhNYDqvLlgcLR3vuC0aV9p IChGREEpLlx+IFRoZSBGRE WsBC7zerIcm9XcryKznQij UYVkaNRhb1GbjTIdn3WqzI vwk1MkzZOraTRiIN5bAXKj clxwYXIgVVRNQiBMYWJvcm K5n8JtCULlTVShZRY3fRnn bvm7OWUlkG0lHHQcX0rkeh qeNPrxATPks0GdzK2kwZJT yEYkq3AxoILrtYDXfHQtIX 9hbuEnXSjYKFjXTNT3zhBh GSYjz8EkZBccD1ftB93jhK pljNv4hED1JCA0wG2fJgd+ IFxwYXJccGFyIEFwcHJvcH FiFPAjmOzcaeNoJ9BovuXe rU8leDIvsrAeVB3sTA6cW2 A3aZWaQTHadsLho2njPCta dmUgYmVlbiByZXZpZXdlZC Sno2VpTCraJJJ6CCcaikZo bmNsdWRpbmcgSCZFLCBTcG RqoKMgRUR0EPadacAsugIs JA1ueT6goWizzC1fzYKcnH H3zblhMKUrTDUicBueAHQd DP0spPRuCCGrhsFTqQzdrJ KnwA5sH7LsFXZnWYMdwi4h HGIwnA1cALnyf8AlbnroQI SfSODpSANtqfKemq0hAGWz hDUNDW7DYMvvuBClu1Efka MmB6sBEKE4LCAqQpBoBdgx LEQdhWLphXSsOFNklv14KP ZviX5koTmzZNGwvD2uqU9v lVxlpW9vOuNfSjNnPEjeXX 1fKWVlA2zdfADoBNZzWFZs C6siKvQjjY9xnCgbMKudQm XyVxIdFYreSNP1jD== Embedded Images (test code = [id number]) [facility] [id number] 15:24:20 Test Item Value Reference Range Interpretation Comments Case Report (test code Surgical Pathology ? ? = [id number]) ?Case: [id number] ? Authorizing Provider: ?Luciano Long MD ?Collected: ? 02/13/2023 1218 ?Ordering Location: ? ? [facility] OR ? Received: ?02/14/2023 0823 ? Department ? Pathologist: ? He Armstrong MD ?Specimens: ? A) - AORTIC VALVE, AORTIC VALVE LEAFLETS ? B) - MITRAL VALVE, MITRAL VALVE LEAFLETS ? Final Diagnosis (test s3sdvNRjRFBxe7dhQSTygW code = [id number]) FuZzEwMzNcZnRuYmpcdWMx IHtccnRmMVxlcGljMTAyMD upl5xvl3igeHQpZDDbl2xt r5OelJRvbLRaCTnvfDIfao Vsyr88dAB9aV67KO6xNWZv UyL1QKIgtpG6Apj1DLVmRC ZmfMDwJ039p8frv0qwfiCm pDT4UHZhNKMlI0SbKD2mKL VctWOpQ70miQRoBES7NVGd WPLowKHrZUAcOQX4VDZocD NbD6opVKOfIA1beupxQWmk MNizGEKirVY5RBQalRBoZ1 ErXMWbDNnzCKQbpmm2XmVj Jn4xcORheBpoTAutVQWoWJ 4bx2axG0WlpNMpNBDgBMuh XGZzMjBccGFyXHBhcmRcdH t5QaAcsZmfOKIxDLU3ZiX3 MOg3bCG2ILKfrAyoPyHuIC I8NHHoPZq6rLDsVAChePf6 SuTlGIH2RnX0VIp9yTdgSU KzjIy0OISiBVZ1MFC5JWb2 pHtyJuVilDxpFRN2MGnoTH LuUPHIVyHCT7RJPKFpUfWS VkUgTEVBRkxFVFMsIEVYQ0 rABD3OMRwWT4DrNE6UCZcR VPHCOADUKXFQIDgQG4LICK 5UKTpccGFyICAgICAgLSBW QUxWVUxBUiBUSVNTVUUgV0 oQEEBWUDhIOOStXDFSUG7W AlQMUA9EBUYAP7SFPVZPFW WZDAXAWxzKWDPIF54NFFAh dhMuEVGlBSNpAC7DJULZGp IXC3hXHDDKT23DJFEKBE6U UGnOXZkmX3FBL5hDLZOyPD 3ZZTrMIFDBDA0GL2xKWgyj RAUgyXFuWVieh8eyUZF3aJ EfohibKIHtiZWjRKw3fTya JMj9oXN1VANinHsyARDfIW G8Jlp8WKb8sUL8VZWyjHs0 TxTiJFL7CQY4RYn6vTQ1Sr RccSh1WLfwMYO1VjQxHUc3 hHx2YyXtrZy5RfUtGRB0QY I8DCs2cPZbWBgzTWSiUZ1A VFJBTCBWQUxWRSBMRUFGTE UWAxlxSQyADPBUP17sXMFa UCBNSVRSQUwgVkFMVkUgUk OZTPLYRM4EMlZcHespXEGw ICAgICAtIFZBTFZVTEFSIF XSV7VSBMRQXKBXTW0SLP0K CTQHRYbBCpWVDLVWS36fHF 2ETZMGKjPPY3kMROLNO34R CHFPYX6DBTJkizEkLTCsHT GiE1kXQKMOIZBVIVulErGH VfSbB4PTUo0FDFKxKVXand eeSPIiRM1ua0gyO4VunUNz XGIwXGNmMFxwYXJcZnMyMi ZTs3UkzKkdH92wtlXuyExw TUQgIDYvMjAvMjAyMyAgOT i4URZVQMdnGDTbPjFrBShe NSN2x5awrQQuADHtsGMrBe KaNFGnBNEln9luFKTdcWIf ZzEwMzNcZnRuYmpcdWMxXG VsOjYld7jpz332cFYnt8md YHBsKbU4hAGkMAHyvMccun o1kSfuSeFuDZXxj0unoeVl ZmNoYXJzZXQwIEFyaWFsO3 16DHErWJgms0yvo4WaNUDu bZRye1C8NWCXJXdmTdQqC9 97x4vka3dlflDuqVM1AWFm FTW7TJfjrrHyaoJ8TGawiC JtTbT1ZJfwtiHfTKmhmgTy idSnPkh4HKBwX031TUU0jY eet1glLGH0ICAbOZTnJory Go6ovIGlD011JCUcBJXHJJ KrvEx6DCFtslNmxzSwlUDP x396I623d6ypSAZcjnEdvK tQddwdt6xxP398KRQmkXYl wePiMnGwHCCguQMoiEX5HO HxJL0erxhoFRfgHEiyIMUy sqW7KCBkmWPtA2XgLUTpLZ 6mgnbfPCB5QCosEEMhYKW3 ThXnXZFtz2Hpqeb1LiIeoy 2iyz13ZGY4w9UcnWtvMIX3 CLG4XfWlCw8ahKBcNODhYQ 3vXlJawUUbQKLvir85gMjh TZhjguMviM8hZdSqYOUpoA PjZJTlPU2gpCJfSLKlwQ2v cmxjXHBnYnJkcmhlYWRccG quxgDtSx1axEfsXEQ4POwn T3wboM0hMiD4PKtfL5xzmB 8pAFl9RIbkyUW8CJHyxF1n WL5kqdrro2qcPIhsZVjsEA SjywQ2srR4HOKsbVDeG7Dt kF2aTHIhFW4gsehya6tuGP Z0TQgyKIQrLQZ9PmEcKSLc f7Mqakw7SnMse2IgyZHgYZ uwR25jc550BPZojqZyE3qh bGFpblxwbGFpblxmMFxmcz D1WJUlAYIqTHvqERHuCSTk MjBcbGFuZzEwMzNcaGljaF fkQHgcJzNaECUyXTweZ8mp CnJnU0DiYASvUjLugGJpPU fpmWL1GILiBBNtg36heJx7 HKAyypeci2AzQXNinWNxjC AqtI5mqjFqk7xdNQBoWDRt NAIaI1VnTZI5jUShSJBkfS StxXS0PN9wrnFxUJ3gQBIx YnkgcmVzaWRlbnRzLCBmZW ihy8ayMA4bXHVvbDihbW0y kDB8GHHte4wkrAJbqCPtn8 xzl3ZgikCjZSigWPCyTPhi VFQvJHHsLI4gHOMlgQVcjc Ufb6C9SqxtzOQrslwnTjqx ycB4YCtfieyxZRXiGHptA1 xtKxOeEUZuoLkeYhdco1Qx XGYyXGZzMjhccGFyfX0= Clinical Information Mitral valve stenosis, (test code = unspecified etiology [id number]) [I05.0]Aortic valve stenosis, etiology of cardiac valve disease unspecified [I35.0]Coronary artery disease involving [place] coronary artery of [place] heart without angina pectoris [I25.10] Gross Description (test k2fstTHkSWMigRSPYLOiAE code = [id number]) UhTX4saMquyIv6bEneRBTp goE5cGJzDIaez9jiCOP4p8 nthlASGpvyDLHpSV6rHNyk YAAyQX8xSkNtSXMoUvDuJN BhcGVydzEyMjQwXHBhcGVy dVO1ENNpWU5bfizhIPsrLE ydWSApuvV8EJQhoNHiR3Fe UVNpYE1pzgklZJJ8ZKKCWz zsQe1unBLkrLybKxSbLiKw YXJzZXQwXGZuaWwgQXJpYW n0vO0LWpllQQC5XDOEPdau QfcuoAfrp2ArnOCuYEEfGO xcaWQgNTEwMDAgXFxkYiBP DsVjXbX6PlOeCzJ8FqZ9PR b5XSFLJCRkVni5LMLnKIE1 XUv2YMJwPU3pPYwzsYMrCP paRmzeJQuqV410SCfwMDMi K5RzW1EcBTmqHlCnBTdpQM EaWZCdTUbkSYLrF2JAOUVc HtibVGZvGWTzXIf9VVqjN3 HNDXTeHBZiNzV0BmO2HrX9 ODo7IVDRTi7vXZydVWclPG KyMPW2ENv9NGGuYFMlMcKi XUDfLZFuKMkziJJuJQ9atZ hjTCVtGA0PZGVxPCutGYGn XpCmM6EFQ1aGMY0uHGamML IgDQpccGFyZCANClxwbGFp wwrdyePtFBz0snHnOVSiXy VoILXnI76yo4RIh5SvZW7W BOk1zwPhfrtwlM6cJMGwak Hrc0AuGMsqrIbjWEIbRoOa YGlIhMYxjI1aegRNGEezDI OxI6RfidOxVTTnISSfLXoh SxMhNUYyd3z9jQJ9wIVhmX B0mWBwlKycHR2izGOxXQQZ YG96bTDtinmrWeIlpbSeTq H1ACu8VFKjDZXaiXP9ilFf TQ6kQUQmxxIad3KlTC5yTR PgzYDnONousDfexdBsri29 rCDtSVirsAGnyBC8IKf4PU CyTj93HLtkVb67EOxyHK54 DEGzGX7kBJpfWVEiWZKqtU DsPSjeWQPteqzbwKm0FKFr C3Yjm76wZPH5phMiLHRoXH wgdGFuLXllbGxvdywgdmFy aWVnYXRlZCwgcnViYmVyeS XyoIGru1IhHgUiWDUqq7f8 vX27nCStPBxwnJVyM5C8rA 0fQfGsA6Yea9PsrOAabAGj fFTpxV49w2vuEXKqiqSzas OqvXUtYP3zYBYFSVJoESBd ktEbhMr4LKEuUSB6rD1sko OsebBdu8BpdYu1wRZrHBpp UAZiKp0HFPPduHBHTSR8OD 6rVQeeZUEsR8WpB2HmzoI6 XHBhciANCntcKlxlcGljc2 VjdCBcXHNnIFxcaWQgNTEw XLDkVQwpYvKWAzVbQaU2Qy DePkA4XaH6TJb4IEWEFtTt QcOsKmN3QRWbUQGtZTq1LL n8VZdVFmAkNFPqKJR4Uvs5 OAO2SChtCDmzdDOpPCipq3 ObMtPnSYCoTOrxdhA6IRSq pgEfv4XvCTMjISGiC0ctEo EwNSANClxmczIwIFNQRUNJ EJRMWPHpoAJdFL2JKQEcpx ZmGQwarUnksA1bgGVhH9bu ZnMyMFxmczIyXGVwaWNOZX M3YH9cLVBSNqicmGZfLHLi kKdeHZwdgM5qADJzIbCnPL SqE8oqDmWrYA2PK8BsH9rv VR5aXFDrymBaKDTiqHBkKY BmcmVzaCBsYWJlbGVkIHdp dGggdGhlIHBhdGllbnQncy NbAC3fZIZSFLZvwI5oIFKe ICJtaXRyYWwgdmFsdmUgbG RgOpfshXWaALIiTVHdo84j kPN9mlIuHmHaaFu5iWYpEI P1SO1fzUIghP74STtecfKy dWxhciwgdHJhYmVjdWxhdG IzXFYmSbCmiEtrd8IaOYNr EVyoJL94heVkreRhI1brBs Xpcz7yWALpQNA1wzMuXyUo H14lbJ2qE5WoPFGzb5DzOK tlJG6hjQ1pLPIiAhHvdQAw RrZxwZGgAeqiX22gbI5lGK xyepTvGCDtWD9aQNlvRALl ZWNpbWVuIGlzIHNlcmlhbG p1ETVpC5Knh45dXZA7msEo ZXZlYWwgdGFuLXllbGxvdy wgdmFyaWVnYXRlZCwgcnVi EhBcoBIeoZVce2NgEbAkWR Cca1a9hW14oWVeKHwodLYz Z4L8oU7dCsGNZCDwXZGueg FrdDh9CMQaBUN8wU4khfKa IiLaQMVjESQpSNckDN72QO KbEFXrrIQvuOH5FNMxzD0m QjEtQjIuXHBhciANClxzYj FmBRAqM7ajRrFuFDbriQFk DM7TBXPfGdUsKAZbB3zsLO AxSV1EVAZnhSFTMEffu6Av QNrqESMxJTMZX9CaJVhsYJ NfV68ck1GZu0Ufy8fpiDjf v0MhsMBlCA10AZYfmANpLU K3QL2myLwpRWEcOKdqxNXo ZCANCn0= Disclaimer (test code = r7qolHZhVRAic5khCKDhzO [id number]) FuZzEwMzNcZnRuYmpcdWMx FWxoczCiPUalh3GdJ4HgUo AwMFxhbnNpXGRlZmxhbmcx COOxDGL5coLjWAPuXFgrRG NpISbyXg2enYIazRoyYeLv GOEuo8agzpPRQFirFpUdY9 06KFUhYVugw6adz2BdPZIy wORyg1A5QVDRthgytWk9yL ocT95ol0K2DgzqU0zzPGRv JZCwS6XsPD9fVCNfBcn8BQ X7GFZ6IRRrNNGwJ8UjCY0u PRYjiDTtKQw2y3owyRzoUM XjLSW5l5iiREgaggQqKL5y rs6tnYw4n0qhuqUxQNHiTN IxjVGOTGKmP9JhwEvkNk2c fFn8zRnoCdvfUBW1Ppa8HA 5ogq38bta7yCekTDRgejxw RqR3SJdvIBYmzydhULp0DI roBFFihDP0JIVmtTHsJ2Ro HOGsWQ6erxe3IRZ2RXzpKR AcHqO1XSFvhJBsQSGltHdi HGghh662LTV0CqBcDZ3wL4 Gvi7P9mY8fnOTbCFKpaETp TtXnXOFplw6wbFQlXGhoj3 KxBJX9ivR6rQThdQBuMBHi KR89Cqyay1GiIkvdp4FvF6 0xvCA6NKzuo8cfGW3tCwG9 lqPrCAwlg8nsoQ6zRwW6RC etHS2sVE8cYAFfxW2hppqr XHBnYnJkcmhlYWRccGdicm PhMc2nhVcaQTW0XJvqL5ln fE2lPyR0WBlsW4amgK5wJX a3TIjobOE2WNMjpO9iVU1f tfzwy6pwENluSOnuNGMvhz F4qfW8YZWvpCDwJ4NmrQ6z VFKbXG6qcvsnj9hvEEE6YP wtZCCcLQK1XyRcGPAjo5Mw pzo1IhEfj3TmvYErCBvfB0 3zq216MCNiyzHqV8wamHQj htnyyTHuasboMIaqjgV5NB FxbwJpc1RuLVUwWJM6HFhg GBaorCPcBJOhdErxz0plY3 RscGFyXHBsYWluXGYxXGZz MjBcbGFuZzEwMzNcaGljaF adVBetPgDlWRPsITquC8ba ElEkZ0XiSJDbNpGsmHYrQ3 ggVGhpcyByZXBvcnQgbWF5 MKgoB0x0IEBeoxLruCx1ap UkQwHwUGNiLQG8QFtboOQv DEQct7NgwimeoRUrJd6ngQ GuLICdyA6vBZVgZGBkTZxo FE8alFw1WQQJhGEynBLsZv BOGUWnGQ18abKsJUZWaxds d7Y2FSvqVNAlt8NxdXYeB1 ojv8RuWSApo34tAW2du7I7 z6xwCCF8JS5ra0IaXIFmdQ EpaDPwVPVde5Jcmoriq7Wd UYYmksEme3DlCAOedqQaaI NrKHEtfmZatz5sqfTgDMMa OGYeN6VkdbtknWalakGvFJ Ecxx4nwrEzXYI7NGDPGVOw XADqa2IliB8lvQBEAYR4kV Qzvb5oebKPkDKqDEHhad59 XSGtQT0dW5wcKUTnCSUqif IddNMuf9XcQBNjeGA5kJAj OP5JHqRQe42gWEUxKSCXok LmRUNifEqdfQL3ofA6xS1f IChGREEpLlx+IFRoZSBGRE FnMU2rbpIrm6ShonIdmOja GBHxsSTsu0ZrwGMnd7RtkQ omm6OuxMQnzRYnEQ5pKAHy clxwYXIgVVRNQiBMYWJvcm U3o9KxEDOmHBEvCHX1fDgt cmw4WYNyzF9tNTEyI8ikje lnHRfkNPKjd4BbsH8stRLE bXAyr4LtgKXsfOMPaRVsGM 3ojtOyIIfJEYlSYKJ9ewGd AANue6YgWEnjX7ooV48vyQ oobGg8jFG7EUX0vG1bIqi+ IFxwYXJccGFyIEFwcHJvcH WpTTAqoJjyxpXxZ6HtjjIh vN8xmNHiklAyZF2cEG4uP6 E5vBMaHERejlAjn2qxHIfb dmUgYmVlbiByZXZpZXdlZC Msb9FhXAwnJMV6VMrnprWv bmNsdWRpbmcgSCZFLCBTcG FbqXPpHDA1ZKktkaKnflDq IU2pgC8iyEcgpA2yhXKjrD O9wvouHIClHTSqfTjhMXMs EV5lbYVhKVMqfsKXpLnehX KhyZ5kU3WvDMWkGCTlvj1x MSCxmE6yJLtnz1ZvxcvdJF SiCVCkWLWwqkNmdg9fWGPn hDTNHY6ZTOrlyDQfu7Nrxv OgC1wWKIS6NADaYcXlPsfv BYQdpRUaoIDgXVTafz07KK KxyM1dbIckZPBgyM0emO4i oQjfbQ9bVoGfQnAbAFjmHJ 4aRXFqV5czkIQlJQTwUXEf G5ptSbYefQ9uwWuzZKlzNc JfOrXcXUfwSMR5iK== Embedded Images (test code = [id number]) [facility] [id number] 15:24:20 Test Item Value Reference Range Interpretation Comments Case Report (test code Surgical Pathology ? ? = [id number]) ?Case: [id number] ? Authorizing Provider: ?Luciano Long MD ?Collected: ? 02/13/2023 1218 ?Ordering Location: ? ? [facility] OR ? Received: ?02/14/2023 0823 ? Department ? Pathologist: ? He Armstrong MD ?Specimens: ? A) - AORTIC VALVE, AORTIC VALVE LEAFLETS ? B) - MITRAL VALVE, MITRAL VALVE LEAFLETS ? Final Diagnosis (test u7navPFzWDTep4kpHGKpgR code = [id number]) FuZzEwMzNcZnRuYmpcdWMx IHtccnRmMVxlcGljMTAyMD wdm6lzv4djtVFlZENso2ea a7BgsFJemQXxLXbapGQxvp Yole46cMR9hV42PQ9zJBHp BuW2WULgegU6Nnh8YYAeTG CrtBFxK127c2umq2dolqQh iRV6TNNoKIKbO6UcXA6jSL AxmGMnR85fiPMzJJI8JFNg MYVixFZcDLPbFAF8WXXqkG OqF2xqELDnTL8xxpiwPPwb PUmbHYOjnCR9WGBlhXYpH7 XqJPDcNNevFWArtpz0FwYw Cc2qiFBksNamZJfcZBUpEV 1tn5stR6DlyFNfKTAdDRus XGZzMjBccGFyXHBhcmRcdH y2LkQhbBjqFEIwQQI8AkX9 CSq9jPO6LRIcqPxjBgUwRW H8JSAuEBl7lZDxLVOvjKw5 NzTuGLC8XyY8IOe2wJpgYV EleCl6GEQtKVW4MIK5YRr4 wWftViHysWdrEET4LRggFH CsJBGDQgCNG6RBQNRnHvTA VkUgTEVBRkxFVFMsIEVYQ0 iALN8LPLdYO6CiUD1XRWuN NRTXXPTRNHWWPPvQM7LYOA 5UKTpccGFyICAgICAgLSBW QUxWVUxBUiBUSVNTVUUgV0 cWDHUHYLvZBDLlRKQTPK3G TkNBDB6QLVTSW2USOLEHLY GXRCNZUdmHSXQPZ80WKRNo igBoQOUaWDVlGQ8LWENBDq MKR6aQTHCZX58UTJVDTY5U UEnVOUaqG8OOP5vATVHdLC 6WRRsFAPURJM6YE9rIJhse EZTxxRUjGSjoh6olZAA0sG WjyoxbEFHvoGUbHCb9vKyc SFb4rUG2ZAEytRhyCEXnJU K7Tpi6VKp6dKB0WVWfyVk8 SeXmXJH7MOS6UWh3uJT3Qa TykHw6MCixNTY7EhFtVKk9 dUs3TdLvuAk1EwXmWFI3KZ J4PFy6sEGvRHvqHRDmJU2A VFJBTCBWQUxWRSBMRUFGTE HQOehjNQjGTJXXA60gQWJe UCBNSVRSQUwgVkFMVkUgUk RBZWTZGF6ATgDtOslgHFSu ICAgICAtIFZBTFZVTEFSIF JEA9PKQQVVMLGAAF7SUP3U KXGLJGkCYgSCBCFNG50iNQ 7QTHNHMgGOD0xLKPSRT25M UZDDQS9HACJmgkEzGROiEZ WjL6sBQDHRDPQRJPqlSdQJ RrKnA7UTEl2XPFKjZNRpxq odOKIkWR2bm5vgB1FpvJGa XGIwXGNmMFxwYXJcZnMyMi RBb4RgqJmcV63qnmOkaVnf TUQgIDYvMjAvMjAyMyAgOT v2KWWXQVmpNQKrUfLpGUak IPZ5o0dmjVHoAJFaoATwQy RnEPBfRWLxc6qoUHSmcFOl ZzEwMzNcZnRuYmpcdWMxXG OpGeMew0vwo927fTTpg7tk QLKjTnI6vIBtDEOghCrluj y3oFlkOmYvDVUyz9sftdHj ZmNoYXJzZXQwIEFyaWFsO3 50BKAbDRqpc8qrp6IxDTGe pKLgk2O3EKNDARmaEvGyP3 11d5qiz0gvlfHkrIY5RKLq HTQ3FSnmivTwglK5PMlajQ UvMeQ0PUiqmyBmLRxyliUv ubEaSib9KARtV501AGD9cS djf8gbRGJ0JJXxUYKuRkht Zn1ylOGfS474DCTpGOBJZQ FrzTi5DPOlwzOggwKinJVF f132U305h4lzQWVsbxCekN zJoeqht8khJ410ZNFmwRQd zaGkWpZjSGMpaIHnvVN7LF IoJI1wkfozUGkrULxdNFQh gdL4RYWykTGlR4XmCWUuPD 7fnoolAOC5ZZtuBQPhHJN4 QeXyZIDzp2Gcqzt2DwYnqh 4oxj44YIG1a8JbzZujLKV7 EXX2VdLwFb3hfBCuQOOfCG 2gRfHexVFiKDHodt04kZeh CTesrmLvbU2lVgBcMZLrpU EoPPDhVU4ikAZeZFKdmF3q cmxjXHBnYnJkcmhlYWRccG tdxvUgQv2kwMmcHPY9HTog Z6ljlL8xSlH5ULkuU3cnwD 7uIRr9EQxwaVS3KHFgmA6j HP3uhvhye8ydAJtlCAvcLD OgarF0tiX2NVXkqQAeM0Ck rJ4sKSQkYF1rylvxf4ebDR G8RCmcENSbBGG3KzRhFGRc o9Drbgt0KzNho5MuzLWuYU rxN42un797CVQzdfPfX0eo bGFpblxwbGFpblxmMFxmcz Q4MCElQUDdNLobBJSjOQUc MjBcbGFuZzEwMzNcaGljaF kfWFmiSgWnAOAuVClbB5ln TaZhS1YuQGUkQbSaaDZeQT ishDG9IJGkZTIta03ldKr7 SBNpqfswe8IdCEHwmGYprU TtkN8zprEfl6ihXXPnXCHq QKAzR1VdTMA3fKQrOTGcuA CdlKC0HZ0kdzEgXO7hLTXa YnkgcmVzaWRlbnRzLCBmZW ivd4zzLA2cEXTouPoklH9f hWQ3GBTsn2jieFUqgZKvm9 xuv3SjycEfLRvvZTSbYZzv CBMpAYQbGZ3iGKOfbIMvnq Awl9W5ItaupKVotljzAkma vyP1INzpkiroOLTgODjbE9 jfCdPpOJWmaAylEdpgu7Fz XGYyXGZzMjhccGFyfX0= Clinical Information Mitral valve stenosis, (test code = unspecified etiology [id number]) [I05.0]Aortic valve stenosis, etiology of cardiac valve disease unspecified [I35.0]Coronary artery disease involving [place] coronary artery of [place] heart without angina pectoris [I25.10] Gross Description (test c8vvgJVeTPRgtFLKWBGbNA code = [id number]) MkUM5gnZpygNc1gWpuMLUs kvK1yFRaLNtst5wxKZR7v0 qzhrTKPalhPSQwZF9fVRnc FMCqCH7aAlKvWIPqGiKwLX BhcGVydzEyMjQwXHBhcGVy hHC0HJUkFZ4hepthBAwaZN qaLCYolaN9XLCzwBTkJ4Tc BFOcPG6khvbhDHE8XQWUGf brQa0mbKWilOjnUqHyVhBs YXJzZXQwXGZuaWwgQXJpYW q8iN9AUmhaGHB1ACWJUanr ZufbxVaan5EbjMPsMCMyYV xcaWQgNTEwMDAgXFxkYiBP BtXgKzP0VlMvVeS2OzT8NK a1NNKABHTsBpr9JNXaSBF1 LTb8OIGvGK2cQIfxmNYzTX wtTscvHMiuU839LPodPFAi K1RxF6QvDFsmHfXbMIgqUJ BvZTYnZRkpOAGeN0UOQNOd KjmpTZOfTIRrFBm4AZtwE8 DRJHZoKXFvCgE6MpF8AvD0 PNh0MCCEYj3iVMlkJRicJQ CpIYI8OQq6DKAvHMNaOpOa GOPpLNZzJHdhyGAwMM5qdH fdOYSyUG4DFALzYLssEIBu QnJwH6VOU3vRMG2yUHxaYK IgDQpccGFyZCANClxwbGFp ebrwkoVeDWz0tzJuBOWtDa AbGDXhC65xj5YYq7NeRW2X FXg5xpBykkaviW1jOCJmvo Ngt7VnQHfjcRwfXOLaVlZd XWyUcHIwxE9slpIDKObtUQ MaB2ApkhFhYVHqUIXsLXqj CvVlKOUfb9h2bFU4vWEbhY L2jXAkkEirUK4jmSMrEWDA SN00jFMgmfqzMoVacgRnHn A5JAa1DHTvOQTluKY0onIx PD4cARKhnhJmz7AsFX5zWS VbqNYyBOdliCdzrsOtrm35 lSHlSLsueFLxgHI1WMc8MG MyYf37LAiiSh61UEovRU16 EDZmSX4hXXwkBPJoCFNrzY JxMXoeTXTkniupwPr9JRRm P4Qts20jKHW1hpSmLCWcQC wgdGFuLXllbGxvdywgdmFy aWVnYXRlZCwgcnViYmVyeS XbiIMuy5AdNyCqTQCiq4u4 rN06pMHiFYewkKWyD8W6jW 8kSvAcH1Qqk4TloHYtlBDm iIJcbT63r2tyPMNkmhXzxf JzgZOxVI7uVUFFPDYfOUXs hfXbjAw1KVDlCBW2zV7zme QmzuKpl7GixXp4jNOjMKja CXLgKp0ZWVTjnEIOHHC3ZT 0tSYvfTGIuL9BeU8JfytW7 XHBhciANCntcKlxlcGljc2 VjdCBcXHNnIFxcaWQgNTEw KKGzAUsrYkMEJzYdFgG4Hn MuYkJ3XvP4PGl1MHEKJcMu FpIvFuH0VEJuTQIrDLu8TH s9CYhTEkGaQPGhJIZ8Xpg5 GVY8GWixICdvsJClXOagq0 IkYsNaQWSxZVypexL6ENNi teSoe7IoXYDnFSUrX5dmQr EwNSANClxmczIwIFNQRUNJ MQFJPBYjtBGdSL1QYXSwid JkDMvjfGrxzN8khVEuB5jg ZnMyMFxmczIyXGVwaWNOZX C6DL9gIGPROtcueZAwQYEh xVdgBXcpxC4nBMMqZyNqFK BdG7wlQyWjPI5FR6TeR5gu BM4wVTTaigUbFILueXRgMJ BmcmVzaCBsYWJlbGVkIHdp dGggdGhlIHBhdGllbnQncy PdVO4bFFZSCNCihE4kKNIr ICJtaXRyYWwgdmFsdmUgbG RdRjsceLEzLFJpOMUhw14i hSC8qgQcBbNxpIp1cZWiAS F8ZS9zkZCbdB03LHieeiTz dWxhciwgdHJhYmVjdWxhdG UqGMBrXeNelRjrx2FzBHMn WFpyJG10aqYzpmXkF2wrRx Svtl1jWGAmLRC6hzSuIbDk Q95zpP4zJ0CgSZNdz2ZtSG ufAI1enJ8gVEGnCqAasRIe YlKbfPDvFvvsM57ieP4gUT ptpkJqEDHeBS0hCTsqZQYy ZWNpbWVuIGlzIHNlcmlhbG z8ZRTyT8Uni01gEYP7nnMe ZXZlYWwgdGFuLXllbGxvdy wgdmFyaWVnYXRlZCwgcnVi JhGhpPMcoMRle6GfPvRrZX Gha0x4pD19tCZdMKyepYTa C4G2gN4rYsBAPPAhGTHwoq RapDm6PIXxKVA5qI8aanYk DkGdZMCkMKInRRcfQP74KI KqANXmkBMzkVD3NQYjiA3y QjEtQjIuXHBhciANClxzYj YcVMSvM6ciRnKoZNcufZFc JG2MCEMtMkQmFEWrX5tmTL LhHB9PIMFknAQMNBuri9Ie QYjlALEeJTKNY0ChZWufPD SdQ54ei4TCh5Ihv8axqOkp c1CrhLRqJL12NSEolVDiKN I8FU5aiGgcHMUqDCfueIEz ZCANCn0= Disclaimer (test code = g0xdnQScLONgm0xtYWXwoT [id number]) FuZzEwMzNcZnRuYmpcdWMx OVjolqOkNYabt4VgI6SeGq AwMFxhbnNpXGRlZmxhbmcx WGHrYJM3bbChBWJoOQzsQK YgHMngTf0noQYnpDfyJdNg WZTui9mwieNFBHsiWfJrW2 46HKMdLHmil0bwv9SbVEAl cOWjp2J4DPQAtyhuoRz0zQ ddH84py7B1BjylH6apFWPs TFVaX1FmHW6vUOHrTvr2FP R3SYD4WUNkFEPpJ1JgVO0x MYXcqOYzDFa7h0rypIwtDP JrXVY6r2zpPYczgzDuDP3q fj7zcGg4k6mlnnAiIGXhZZ SdoQGVTNIgZ9NzqPztPk9v lIn6nYocDbbvNFK7Ntg7FC 1qcr23wwh8aFpyWCAdvzkg CsX9AQipJOFfnahoERp4RF eqYTCbnZT7SOAnxMInW0It DGXqGJ3facd8HZM7KWslDQ HyEqJ7IPIsiVFqEGJxpUac GUssy005IDQ4AjMlVS1mV0 Bwi6G9mH2psHWkPTYnjKSh VyUpAPZivn7vfZXhUFija9 LnFCY4rxJ7qCJoyCMdPHKe KP94Bccfx9KnKqoqb4WeH4 5mtNV0XDauz5qqDN3uFfO8 bmNoDZyah9dadM0cNuP5CK trQR2wIV4fXRBotU3izyzg XHBnYnJkcmhlYWRccGdicm CcKz4ujTcdJXY1YKhcQ0wd xX8aKfX8MFleA6tvnB1bLH x7BWtsgBN1JWCpsS1vIK0o mvcgy6wkVAygDYucFAWirv W5saP8IWSvkFXvQ9KakY8q TEMkJC2cctami9leYPH7ST aoNAMdJOL4DgAaJHAct7Ry eyn0UjKen8LzrTOkEIayA2 2nh651SLRuddPtC3pgzPPg xqcdoZUpdtcfQRpzshH4CV YqxzAun1KdFZZbSYH9LNnn NNxozWUcOUKrjSgth2ajO3 RscGFyXHBsYWluXGYxXGZz MjBcbGFuZzEwMzNcaGljaF ywATnjGvZbCVQaOHoiT3qu SgJmY7AkAZAeBsKbmNUtX4 ggVGhpcyByZXBvcnQgbWF5 DOukW6j2UYLfzwJcxEv6nd YjKwUlLXOwAOP5TKlrdFCt NTSmd1FelolacBSxNj1uwZ RiSDDknZ4eGAGiBSOtWSrz AZ7rrXf3IYQKeRYyjRFjWc RDYHUuXJ54cpKfINXXxyjr g3F0WUugTRBfp4GxiECwB7 mzd4RwRIFxv57lZB9kl6K7 u4twZCV8WQ4up9CbRAVzeY XonUHzUSPwy5Izgoidi8Eg KOYuqdRvy3ZfXTEecaZjeJ KdGIXrvgCqwp4hndOnAMPp TQCbD4EnjrhpnZovdjJqMC Qgiy0nijObZOQ4WRQDSRVa RCBep1QjqK5qiYHETKM1cH Jtwk7rfhQYsHZzSZPabk18 IATdCK5nH7cuOJPpGDNrdz XioPPkp2IaTLFnxNW9jBQd MD0DDxZNt09cJHHeEUSQjv SrQODblVjmhNH2zyS0kR3x IChGREEpLlx+IFRoZSBGRE PgJH8xcpKyr3QscaErpIot WCMaeAGtw0HssOGmf1AqpK yor0AxjKDpjAEdUQ0lTCVj clxwYXIgVVRNQiBMYWJvcm H7a5IyBPYpKAJaINK8oEaz xti6WECqmT6vYEFvQ1ghbd nsHJmlMSUzt9YfhO4esRZP dCQcc0WclDFeyZNBxVUfTX 0ktzHeVKcBUFjZZCP0owJl NIFtd5WvOUdiA9uaK69maQ uhcBf2hZF5PZK5vB5iQej+ IFxwYXJccGFyIEFwcHJvcH SuIXZizZwujoMnG7EayxOn oK5ctOFnelXmDE8oXJ7yI9 C4jHRoAOYobxZjk7klMBnr dmUgYmVlbiByZXZpZXdlZC Qmd2TwTIceTSE1WWldicId bmNsdWRpbmcgSCZFLCBTcG NeySAdILK3DNoamjGhsnTg NY8dsD6ofMowgL6pdMLmdH T7bngeSLZjHDTnoUmgREVm FC3qbNAoDPRfviUInYkruZ GdhJ0jM4SkJBXoSCUdrj0b TYQitF3yLKlcs8EqhekoZO AlTJYeIEUjzeGppx2jSMUe kQUNIV3GZOtyzVSkh9Lroj DfR7oIWSK2JJYlCpVrDuvl HAQmmGNrhNAnMGMflx52UN KkaQ0gbCqxIUDfpV8nnH9o hIkvhQ7tAtMzYkYaDEboXK 0nUFUvP1dreVKsKPUoNXEn S2jrLeJkzO9oxFwoVUneTc ZpRbLtIOlnGVF4nA== Embedded Images (test code = 1588852294) [facility] GLUCOSE (AUTOMATED)2023-02-19 12:31:08 Test Item Value Reference Range Interpretation Comments POCT GLU (test code = 2276064029) 142 mg/dL 70-110 H Lab Interpretation (test code = Abnormal 65523-1) [facility] GLUCOSE (AUTOMATED)2023-02-19 12:31:08 Test Item Value Reference Range Interpretation Comments POCT GLU (test code = 1471265561) 142 mg/dL 70-110 H Lab Interpretation (test code = Abnormal 34196-9) [facility] GLUCOSE (AUTOMATED)2023-02-19 11:10:40 Test Item Value Reference Range Interpretation Comments POCT GLU (test code = 0092618850) 164 mg/dL 70-110 H Lab Interpretation (test code = Abnormal 80153-4) [facility] GLUCOSE (AUTOMATED)2023-02-19 11:10:40 Test Item Value Reference Range Interpretation Comments POCT GLU (test code = 5316031971) 164 mg/dL 70-110 H Lab Interpretation (test code = Abnormal 46559-2) [facility] GLUCOSE (AUTOMATED)2023-02-19 10:48:42 Test Item Value Reference Range Interpretation Comments POCT GLU (test code = 7342685630) 89 mg/dL 70-110 Lab Interpretation (test code = Normal 66529-5) [facility] GLUCOSE (AUTOMATED)2023-02-19 10:48:42 Test Item Value Reference Range Interpretation Comments POCT GLU (test code = 4448612311) 89 mg/dL 70-110 Lab Interpretation (test code = Normal 66807-0) [facility] WITH [id number] 09:22:41 Test Item Value Reference Range Interpretation Comments WBC (test code = 14.64 See_Comment H [Automated 6690-2) message] The sy stem which generated this result transmitted reference range : 4.20 - 10.70 10*3/?L. The reference range was not used to interpret this result as normal/abnormal . RBC (test code = 2.55 See_Comment L [Automated 789-8) message] The sy stem which generated this result transmitted reference range : 4.26 - 5.52 10*6/?L. The reference range was not used to interpret this result as normal/abnormal . HGB (test code = 7.8 g/dL 12.2-16.4 L 718-7) HCT (test code = 23.7 % 38.4-49.3 L 4544-3) MCV (test code = 92.9 fL 81.7-95.6 787-2) MCH (test code = 30.6 pg 26.1-32.7 785-6) MCHC (test code = 32.9 g/dL 31.2-35.0 786-4) RDW-SD (test code = 52.1 fL 38.5-51.6 H 29973-5) RDW-CV (test code = 15.8 % 12.1-15.4 H 788-0) PLT (test code = 46 See_Comment LL [Automated 777-3) message] The sy stem which generated this result transmitted reference range : 150 - 328 10*3/ ?L. The reference r kyra was not used to interpret this result as normal/abnormal . MPV (test code = 12.7 fL 9.8-13.0 81296-0) IPF % (test code = 20.6 % 1.2-10.7 H Platelet count [id number]) measured by fluorescence method. NRBC/100 WBC (test 0.8 See_Comment [Automat ed code = 7908394504) message] The system which generated this result transmitted reference range : 0.0 - 10.0 /100 WBCs. The refer ence range was not u sed to interpret th is result as normal/abnormal . NRBC x10^3 (test code 0.12 See_Comment [Auto mated = 7500245759) message] The s ystem which generated this result transmitted reference range : 10*3/?L. The reference range was not used to interpret this result as normal/abnormal . GRAN MAT (NEUT) % 82.1 % (test code = 770-8) IMM GRAN % (test code 1.70 % = 1492860410) LYMPH % (test code = 7.2 % 736-9) MONO % (test code = 6.8 % 5905-5) EOS % (test code = 2.0 % 713-8) BASO % (test code = 0.2 % 706-2) GRAN MAT x10^3(ANC) 12.01 10*3/uL 1.99-6.95 H (test code = 7097396868) IMM GRAN x10^3 (test 0.25 10*3/uL 0.00-0.06 H code = 2315639750) LYMPH x10^3 (test 1.06 10*3/uL 1.09-3.23 L code = 731-0) MONO x10^3 (test code 1.00 10*3/uL 0.36-1.02 = 742-7) EOS x10^3 (test code 0.29 10*3/uL 0.06-0.53 = 711-2) BASO x10^3 (test code 0.03 10*3/uL 0.01-0.09 = 704-7) BRADLEY CELLS (test code 2+ See_Comment A [Auto mated = 1990-9) message] The sy stem which generated this result transmitted reference range : (none). The reference range was not used to interpret this result as normal/abnormal . POLYCHROMASIA (test 2+ See_Comment [Automa che code = 75491-9) message] The system which generated this result transmitted reference range : 2+. The referen ce range was not u sed to interpret th is result as normal/abnormal . GIANT PLATELETS (test Present See_Comment A [Auto mated code = 5908-9) message] The system which generated this result transmitted reference range : (none). The reference range was not used to interpret this result as normal/abnormal . Lab Interpretation Abnormal (test code = 53281-7) [facility] WITH [id number] 09:22:41 Test Item Value Reference Range Interpretation Comments WBC (test code = 14.64 See_Comment H [Automated 6690-2) message] The sy stem which generated this result transmitted reference range : 4.20 - 10.70 10*3/?L. The reference range was not used to interpret this result as normal/abnormal . RBC (test code = 2.55 See_Comment L [Automated 789-8) message] The sy stem which generated this result transmitted reference range : 4.26 - 5.52 10*6/?L. The reference range was not used to interpret this result as normal/abnormal . HGB (test code = 7.8 g/dL 12.2-16.4 L 718-7) HCT (test code = 23.7 % 38.4-49.3 L 4544-3) MCV (test code = 92.9 fL 81.7-95.6 787-2) MCH (test code = 30.6 pg 26.1-32.7 785-6) MCHC (test code = 32.9 g/dL 31.2-35.0 786-4) RDW-SD (test code = 52.1 fL 38.5-51.6 H 33374-6) RDW-CV (test code = 15.8 % 12.1-15.4 H 788-0) PLT (test code = 46 See_Comment LL [Automated 777-3) message] The sy stem which generated this result transmitted reference range : 150 - 328 10*3/ ?L. The reference r kyra was not used to interpret this result as normal/abnormal . MPV (test code = 12.7 fL 9.8-13.0 14524-1) IPF % (test code = 20.6 % 1.2-10.7 H Platelet count [id number]) measured by fluorescence method. NRBC/100 WBC (test 0.8 See_Comment [Automat ed code = 2423009671) message] The system which generated this result transmitted reference range : 0.0 - 10.0 /100 WBCs. The refer ence range was not u sed to interpret th is result as normal/abnormal . NRBC x10^3 (test code 0.12 See_Comment [Auto mated = 6998589552) message] The s ystem which generated this result transmitted reference range : 10*3/?L. The reference range was not used to interpret this result as normal/abnormal . GRAN MAT (NEUT) % 82.1 % (test code = 770-8) IMM GRAN % (test code 1.70 % = 8537274687) LYMPH % (test code = 7.2 % 736-9) MONO % (test code = 6.8 % 5905-5) EOS % (test code = 2.0 % 713-8) BASO % (test code = 0.2 % 706-2) GRAN MAT x10^3(ANC) 12.01 10*3/uL 1.99-6.95 H (test code = 2331197416) IMM GRAN x10^3 (test 0.25 10*3/uL 0.00-0.06 H code = 2321995015) LYMPH x10^3 (test 1.06 10*3/uL 1.09-3.23 L code = 731-0) MONO x10^3 (test code 1.00 10*3/uL 0.36-1.02 = 742-7) EOS x10^3 (test code 0.29 10*3/uL 0.06-0.53 = 711-2) BASO x10^3 (test code 0.03 10*3/uL 0.01-0.09 = 704-7) BRADLEY CELLS (test code 2+ See_Comment A [Auto mated = 1456-0) message] The sy stem which generated this result transmitted reference range : (none). The reference range was not used to interpret this result as normal/abnormal . POLYCHROMASIA (test 2+ See_Comment [Automa che code = 48386-2) message] The system which generated this result transmitted reference range : 2+. The referen ce range was not u sed to interpret th is result as normal/abnormal . GIANT PLATELETS (test Present See_Comment A [Auto mated code = 5908-9) message] The system which generated this result transmitted reference range : (none). The reference range was not used to interpret this result as normal/abnormal . Lab Interpretation Abnormal (test code = 96567-5) [facility] [id number] 08:57:03 Test Item Value Reference Range Interpretation Comments TROPONIN I (test code = 3.330 ng/mL <=0.034 H 0212588306) MIKAYLA (test code = MIKAYLA) Reference (Normal) Range (defined by the 99th percentile reference limit): <= 0.034 ng/mL Note: Cardiac troponin begins to rise 3-4 hours after the onset of ischemia. Repeat in 4-6 hours if the sample was drawn within 3-4 hours of the onset of the symptom and found normal. Diagnosis of myocardial injury is made with acute changes in cTn concentrations with at least one serial sample above the 99th percentile upper reference limit (URL), taken together with the patient's clinical presentation. Biotin has been reported to cause a negative bias, interpret results relative to patient's use of biotin. Lab Interpretation Abnormal (test code = 10539-8) [facility] [id number] 08:57:03 Test Item Value Reference Range Interpretation Comments TROPONIN I (test code = 3.330 ng/mL <=0.034 H 5805992212) MIKAYLA (test code = MIKAYLA) Reference (Normal) Range (defined by the 99th percentile reference limit): <= 0.034 ng/mL Note: Cardiac troponin begins to rise 3-4 hours after the onset of ischemia. Repeat in 4-6 hours if the sample was drawn within 3-4 hours of the onset of the symptom and found normal. Diagnosis of myocardial injury is made with acute changes in cTn concentrations with at least one serial sample above the 99th percentile upper reference limit (URL), taken together with the patient's clinical presentation. Biotin has been reported to cause a negative bias, interpret results relative to patient's use of biotin. Lab Interpretation Abnormal (test code = 43697-6) [facility] [id number] 08:57:03 Test Item Value Reference Range Interpretation Comments TROPONIN I (test code = 3.330 ng/mL <=0.034 H 9335398689) MIKAYLA (test code = MIKAYLA) Reference (Normal) Range (defined by the 99th percentile reference limit): <= 0.034 ng/mL Note: Cardiac troponin begins to rise 3-4 hours after the onset of ischemia. Repeat in 4-6 hours if the sample was drawn within 3-4 hours of the onset of the symptom and found normal. Diagnosis of myocardial injury is made with acute changes in cTn concentrations with at least one serial sample above the 99th percentile upper reference limit (URL), taken together with the patient's clinical presentation. Biotin has been reported to cause a negative bias, interpret results relative to patient's use of biotin. Lab Interpretation Abnormal (test code = 16099-1) [facility] [id number] 08:57:03 Test Item Value Reference Range Interpretation Comments TROPONIN I (test code = 3.330 ng/mL <=0.034 H 9023975878) MIKAYLA (test code = MIKAYLA) Reference (Normal) Range (defined by the 99th percentile reference limit): <= 0.034 ng/mL Note: Cardiac troponin begins to rise 3-4 hours after the onset of ischemia. Repeat in 4-6 hours if the sample was drawn within 3-4 hours of the onset of the symptom and found normal. Diagnosis of myocardial injury is made with acute changes in cTn concentrations with at least one serial sample above the 99th percentile upper reference limit (URL), taken together with the patient's clinical presentation. Biotin has been reported to cause a negative bias, interpret results relative to patient's use of biotin. Lab Interpretation Abnormal (test code = 51414-3) [facility] METABOLIC PANEL (NA, K, CL, CO2, GLUCOSE, BUN, CREATININE, CA)2023-02-19 08:43:20 Test Item Value Reference Range Interpretation Comments NA (test code = 143 mmol/L 135-145 0402487409) K (test code = 4.1 mmol/L 3.5-5.0 9941784639) CL (test code = 107 mmol/L 98-108 0023625319) CO2 TOTAL (test code = 22 mmol/L 23-31 L 3611566334) AGAP (test code = 14 2-16 3557706114) BUN (test code = 66 mg/dL 7-23 H 7366907469) GLUCOSE (test code = 186 mg/dL 70-110 H 8266840884) CREATININE (test code = 2.54 mg/dL 0.60-1.25 H 5956146284) CALCIUM (test code = 7.5 mg/dL 8.6-10.6 L 2913627145) eGFR (test code = 25.9 mL/min/1.73m2 9754822123) MIKAYLA (test code = MIKAYLA) Association of Glomerular Filtration Rate (GFR) and Staging of Kidney Disease* + --+ --+ ------+| GFR (mL/min/1.73 m2) ?| With Kidney Damage ?| ?Without Kidney Damage+ --------+ --------+ +| ?>90 ?| ?Stage one ?| ? Normal ?+ ---+ ---+ -------+| ?60-89 ?| ?Stage two ?| ? Decreased GFR ? + --+ --+ ------+| ?30-59 ?| ?Stage three ?| ? Stage three ? + --+ --+ ------+| ?15-29 ?| ?Stage four ? | ? Stage four ?+ ---+ ---+ -------+| ?<15 (or dialysis) ? ?| ?Stage five ? | ? Stage five ?+ ---+ ---+ -------+ *Each stage assumes the associated GFR level has been in effect for at least three months. ?Stages 1 to 5, with or without kidney disease, indicate chronic kidney disease. Notes: Determination of stages one and two (with eGFR >59mL/min/1.73 m2) requires estimation of kidney damage for at least three months as defined by structural or functional abnormalities of the kidney, manifested by either:Pathological abnormalities or Markers of kidney damage (including abnormalities in the composition of the blood or urine or abnormalities in imaging tests). Lab Interpretation Abnormal (test code = 66360-8) [facility] Test Item Value Reference Range Interpretation Comments PHOSPHORUS (test code = 9158126564) 3.6 mg/dL 2.5-5.0 Lab Interpretation (test code = Normal 39601-5) [facility] Test Item Value Reference Range Interpretation Comments MAGNESIUM (test code = 8460571954) 2.9 mg/dL 1.7-2.4 H Lab Interpretation (test code = Abnormal 02344-6) [facility] (NA, K, CL, CO2, GLUCOSE, BUN, CREATININE, CA)2023-02-19 08:43:20 Test Item Value Reference Range Interpretation Comments NA (test code = 143 mmol/L 135-145 0021599914) K (test code = 4.1 mmol/L 3.5-5.0 4505658363) CL (test code = 107 mmol/L 98-108 5667207793) CO2 TOTAL (test code = 22 mmol/L 23-31 L 5886021709) AGAP (test code = 14 2-16 6440814220) BUN (test code = 66 mg/dL 7-23 H 3628789180) GLUCOSE (test code = 186 mg/dL 70-110 H 9506333377) CREATININE (test code = 2.54 mg/dL 0.60-1.25 H 3436992678) CALCIUM (test code = 7.5 mg/dL 8.6-10.6 L 2372727808) eGFR (test code = 25.9 mL/min/1.73m2 7311154401) MIKAYLA (test code = MIKAYLA) Association of Glomerular Filtration Rate (GFR) and Staging of Kidney Disease* + --+ --+ ------+| GFR (mL/min/1.73 m2) ?| With Kidney Damage ?| ?Without Kidney Damage+ --------+ --------+ +| ?>90 ?| ?Stage one ?| ? Normal ?+ ---+ ---+ -------+| ?60-89 ?| ?Stage two ?| ? Decreased GFR ? + --+ --+ ------+| ?30-59 ?| ?Stage three ?| ? Stage three ? + --+ --+ ------+| ?15-29 ?| ?Stage four ? | ? Stage four ?+ ---+ ---+ -------+| ?<15 (or dialysis) ? ?| ?Stage five ? | ? Stage five ?+ ---+ ---+ -------+ *Each stage assumes the associated GFR level has been in effect for at least three months. ?Stages 1 to 5, with or without kidney disease, indicate chronic kidney disease. Notes: Determination of stages one and two (with eGFR >59mL/min/1.73 m2) requires estimation of kidney damage for at least three months as defined by structural or functional abnormalities of the kidney, manifested by either:Pathological abnormalities or Markers of kidney damage (including abnormalities in the composition of the blood or urine or abnormalities in imaging tests). Lab Interpretation Abnormal (test code = 73471-9) [facility] Test Item Value Reference Range Interpretation Comments PHOSPHORUS (test code = 0043798979) 3.6 mg/dL 2.5-5.0 Lab Interpretation (test code = Normal 63216-5) [facility]20 Test Item Value Reference Range Interpretation Comments MAGNESIUM (test code = 7704882489) 2.9 mg/dL 1.7-2.4 H Lab Interpretation (test code = Abnormal 59734-0) [facility] GLUCOSE (AUTOMATED)2023-02-19 05:58:25 Test Item Value Reference Range Interpretation Comments POCT GLU (test code = 6609860255) 172 mg/dL 70-110 H Lab Interpretation (test code = Abnormal 04973-3) [facility] GLUCOSE (AUTOMATED)2023-02-19 05:58:25 Test Item Value Reference Range Interpretation Comments POCT GLU (test code = 9742458462) 172 mg/dL 70-110 H Lab Interpretation (test code = Abnormal 18862-9) [facility] GLUCOSE (AUTOMATED)2023-02-19 05:53:54 Test Item Value Reference Range Interpretation Comments POCT GLU (test code = 9403238637) 446 mg/dL 70-110 H Lab Interpretation (test code = Abnormal 23234-1) [facility]2023-02-19 05:53:54 Test Item Value Reference Range Interpretation Comments POCT GLU (test code = 1707922732) 446 mg/dL 70-110 H Lab Interpretation (test code = Abnormal 77126-9) [facility] Test Item Value Reference Range Interpretation Comments MAGNESIUM (test code = 7020983873) 2.6 mg/dL 1.7-2.4 H Lab Interpretation (test code = Abnormal 45292-9) [facility] Test Item Value Reference Range Interpretation Comments MAGNESIUM (test code = 2763890406) 2.6 mg/dL 1.7-2.4 H Lab Interpretation (test code = Abnormal 83130-9) [id number]03:15 Test Item Value Reference Range Interpretation Comments TROPONIN I (test code = 4.410 ng/mL <=0.034 H 0458828498) MIKAYLA (test code = MIKAYLA) Reference (Normal) Range (defined by the 99th percentile reference limit): <= 0.034 ng/mL Note: Cardiac troponin begins to rise 3-4 hours after the onset of ischemia. Repeat in 4-6 hours if the sample was drawn within 3-4 hours of the onset of the symptom and found normal. Diagnosis of myocardial injury is made with acute changes in cTn concentrations with at least one serial sample above the 99th percentile upper reference limit (URL), taken together with the patient's clinical presentation. Biotin has been reported to cause a negative bias, interpret results relative to patient's use of biotin. Lab Interpretation Abnormal (test code = 28467-1) [facility] [id number] 02:03:15 Test Item Value Reference Range Interpretation Comments TROPONIN I (test code = 4.410 ng/mL <=0.034 H 4387526578) MIKAYLA (test code = MIKAYLA) Reference (Normal) Range (defined by the 99th percentile reference limit): <= 0.034 ng/mL Note: Cardiac troponin begins to rise 3-4 hours after the onset of ischemia. Repeat in 4-6 hours if the sample was drawn within 3-4 hours of the onset of the symptom and found normal. Diagnosis of myocardial injury is made with acute changes in cTn concentrations with at least one serial sample above the 99th percentile upper reference limit (URL), taken together with the patient's clinical presentation. Biotin has been reported to cause a negative bias, interpret results relative to patient's use of biotin. Lab Interpretation Abnormal (test code = 46968-7) [facility] METABOLIC PANEL (NA, K, CL, CO2, GLUCOSE, BUN, CREATININE, CA)2023-02-19 01:51:34 Test Item Value Reference Range Interpretation Comments NA (test code = 141 mmol/L 135-145 2647655564) K (test code = 4.5 mmol/L 3.5-5.0 2050546657) CL (test code = 108 mmol/L 98-108 8136356802) CO2 TOTAL (test code = 23 mmol/L 23-31 7316697083) AGAP (test code = 10 2-16 0814363103) BUN (test code = 68 mg/dL 7-23 H 7787863363) GLUCOSE (test code = 173 mg/dL 70-110 H 5195036784) CREATININE (test code = 2.68 mg/dL 0.60-1.25 H 2757799264) CALCIUM (test code = 7.6 mg/dL 8.6-10.6 L 1767430930) eGFR (test code = 24.4 mL/min/1.73m2 9848439753) MIKAYLA (test code = MIKAYLA) Association of Glomerular Filtration Rate (GFR) and Staging of Kidney Disease* + --+ --+ ------+| GFR (mL/min/1.73 m2) ?| With Kidney Damage ?| ?Without Kidney Damage+ --------+ --------+ +| ?>90 ?| ?Stage one ?| ? Normal ?+ ---+ ---+ -------+| ?60-89 ?| ?Stage two ?| ? Decreased GFR ? + --+ --+ ------+| ?30-59 ?| ?Stage three ?| ? Stage three ? + --+ --+ ------+| ?15-29 ?| ?Stage four ? | ? Stage four ?+ ---+ ---+ -------+| ?<15 (or dialysis) ? ?| ?Stage five ? | ? Stage five ?+ ---+ ---+ -------+ *Each stage assumes the associated GFR level has been in effect for at least three months. ?Stages 1 to 5, with or without kidney disease, indicate chronic kidney disease. Notes: Determination of stages one and two (with eGFR >59mL/min/1.73 m2) requires estimation of kidney damage for at least three months as defined by structural or functional abnormalities of the kidney, manifested by either:Pathological abnormalities or Markers of kidney damage (including abnormalities in the composition of the blood or urine or abnormalities in imaging tests). Lab Interpretation Abnormal (test code = 64130-3) [facility] METABOLIC PANEL (NA, K, CL, CO2, GLUCOSE, BUN, CREATININE, CA)2023-02-19 01:51:34 Test Item Value Reference Range Interpretation Comments NA (test code = 141 mmol/L 135-145 3157072593) K (test code = 4.5 mmol/L 3.5-5.0 3561986013) CL (test code = 108 mmol/L 98-108 0423270478) CO2 TOTAL (test code = 23 mmol/L 23-31 7763639164) AGAP (test code = 10 2-16 0819799903) BUN (test code = 68 mg/dL 7-23 H 4326191863) GLUCOSE (test code = 173 mg/dL 70-110 H 4480801307) CREATININE (test code = 2.68 mg/dL 0.60-1.25 H 3340217089) CALCIUM (test code = 7.6 mg/dL 8.6-10.6 L 1727622591) eGFR (test code = 24.4 mL/min/1.73m2 2975260081) MIKAYLA (test code = MIKAYLA) Association of Glomerular Filtration Rate (GFR) and Staging of Kidney Disease* + --+ --+ ------+| GFR (mL/min/1.73 m2) ?| With Kidney Damage ?| ?Without Kidney Damage+ --------+ --------+ +| ?>90 ?| ?Stage one ?| ? Normal ?+ ---+ ---+ -------+| ?60-89 ?| ?Stage two ?| ? Decreased GFR ? + --+ --+ ------+| ?30-59 ?| ?Stage three ?| ? Stage three ? + --+ --+ ------+| ?15-29 ?| ?Stage four ? | ? Stage four ?+ ---+ ---+ -------+| ?<15 (or dialysis) ? ?| ?Stage five ? | ? Stage five ?+ ---+ ---+ -------+ *Each stage assumes the associated GFR level has been in effect for at least three months. ?Stages 1 to 5, with or without kidney disease, indicate chronic kidney disease. Notes: Determination of stages one and two (with eGFR >59mL/min/1.73 m2) requires estimation of kidney damage for at least three months as defined by structural or functional abnormalities of the kidney, manifested by either:Pathological abnormalities or Markers of kidney damage (including abnormalities in the composition of the blood or urine or abnormalities in imaging tests). Lab Interpretation Abnormal (test code = 06194-0) [facility] VENOUS BLOOD [id number] 01:45:27 Test Item Value Reference Range Interpretation Comments PH (test code = 7.36 7.32-7.42 9731228942) PCO2 ANANDA (test code = 40 See_Comment L [Auto mated message] 2401118570) The system [employer] generated this result transmitted ref erence range: 41 - 51 mmHg. The reference r kyra was not used to interpret this result as normal/abnor mal. PO2 ANANDA (test code = 28 See_Comment [Autom ated message] 6288361854) The system [employer] generated this result transmitted ref erence range: 25 - 40 mmHg. The reference r kyra was not used to interpret this result as normal/abnor mal. HCO3 ANANDA (test code = 22 See_Comment L [Auto mated message] 5150379583) The system [employer] generated this result transmitted ref erence range: 24 - 28 mEq/L. The reference r kyra was not used to interpret this result as normal/abnor mal. AC VBE(BEAKER) (test -2.8 mEq/L code = 1922864629) Lab Interpretation (test Abnormal code = 79680-8) [facility] VENOUS BLOOD [id number] 01:45:27 Test Item Value Reference Range Interpretation Comments PH (test code = 7.36 7.32-7.42 8209509573) PCO2 ANANDA (test code = 40 See_Comment L [Auto mated message] 4706355923) The system [employer] generated this result transmitted ref erence range: 41 - 51 mmHg. The reference r kyra was not used to interpret this result as normal/abnor mal. PO2 ANANDA (test code = 28 See_Comment [Autom ated message] 1404762822) The system [employer] generated this result transmitted ref erence range: 25 - 40 mmHg. The reference r kyra was not used to interpret this result as normal/abnor mal. HCO3 ANANDA (test code = 22 See_Comment L [Auto mated message] 2733485503) The system [employer] generated this result transmitted ref erence range: 24 - 28 mEq/L. The reference r kyra was not used to interpret this result as normal/abnor mal. AC VBE(BEAKER) (test -2.8 mEq/L code = 0032121475) Lab Interpretation (test Abnormal code = 54924-0) [facility] VENOUS BLOOD [id number] 01:45:27 Test Item Value Reference Range Interpretation Comments PH (test code = 7.36 7.32-7.42 3588210789) PCO2 ANANDA (test code = 40 See_Comment L [Auto mated message] 2207450426) The system [employer] generated this result transmitted ref erence range: 41 - 51 mmHg. The reference r kyra was not used to interpret this result as normal/abnor mal. PO2 ANANDA (test code = 28 See_Comment [Autom ated message] 2870987639) The system [employer] generated this result transmitted ref erence range: 25 - 40 mmHg. The reference r kyra was not used to interpret this result as normal/abnor mal. HCO3 ANANDA (test code = 22 See_Comment L [Auto mated message] 6315279528) The system [employer] generated this result transmitted ref erence range: 24 - 28 mEq/L. The reference r kyra was not used to interpret this result as normal/abnor mal. AC VBE(BEAKER) (test -2.8 mEq/L code = 3211598490) Lab Interpretation (test Abnormal code = 52980-4) [facility] VENOUS BLOOD [id number] 01:45:27 Test Item Value Reference Range Interpretation Comments PH (test code = 7.36 7.32-7.42 1763304790) PCO2 ANANDA (test code = 40 See_Comment L [Auto mated message] 7658264061) The system [employer] generated this result transmitted ref erence range: 41 - 51 mmHg. The reference r kyra was not used to interpret this result as normal/abnor mal. PO2 ANANDA (test code = 28 See_Comment [Autom ated message] 4544861467) The system [employer] generated this result transmitted ref erence range: 25 - 40 mmHg. The reference r kyra was not used to interpret this result as normal/abnor mal. HCO3 ANANDA (test code = 22 See_Comment L [Auto mated message] 6943371477) The system [employer] generated this result transmitted ref erence range: 24 - 28 mEq/L. The reference r kyra was not used to interpret this result as normal/abnor mal. AC VBE(BEAKER) (test -2.8 mEq/L code = 8501664931) Lab Interpretation (test Abnormal code = 76916-1) [facility] GLUCOSE (AUTOMATED)2023-02-19 01:35:03 Test Item Value Reference Range Interpretation Comments POCT GLU (test code = 5970877611) 177 mg/dL 70-110 H Lab Interpretation (test code = Abnormal 99511-2) [facility] GLUCOSE (AUTOMATED)2023-02-19 01:35:03 Test Item Value Reference Range Interpretation Comments POCT GLU (test code = 8592398809) 177 mg/dL 70-110 H Lab Interpretation (test code = Abnormal 69415-5) [facility] GLUCOSE (AUTOMATED)2023-02-18 21:18:08 Test Item Value Reference Range Interpretation Comments POCT GLU (test code = 2510439095) 177 mg/dL 70-110 H Lab Interpretation (test code = Abnormal 00685-2) [facility] GLUCOSE (AUTOMATED)2023-02-18 21:18:08 Test Item Value Reference Range Interpretation Comments POCT GLU (test code = 3935258664) 177 mg/dL 70-110 H Lab Interpretation (test code = Abnormal 52919-7) [facility] METABOLIC PANEL (NA, K, CL, CO2, GLUCOSE, BUN, CREATININE, CA)2023-02-18 19:01:30 Test Item Value Reference Range Interpretation Comments NA (test code = 142 mmol/L 135-145 0978519755) K (test code = 4.2 mmol/L 3.5-5.0 9225481274) CL (test code = 107 mmol/L 98-108 6727252226) CO2 TOTAL (test code = 23 mmol/L 23-31 1520241516) AGAP (test code = 12 2-16 9052201187) BUN (test code = 66 mg/dL 7-23 H 9353569994) GLUCOSE (test code = 201 mg/dL 70-110 H 0166320311) CREATININE (test code = 2.71 mg/dL 0.60-1.25 H 0288647626) CALCIUM (test code = 7.3 mg/dL 8.6-10.6 L 1792746489) eGFR (test code = 24.0 mL/min/1.73m2 1891916420) MIKAYLA (test code = MIKAYLA) Association of Glomerular Filtration Rate (GFR) and Staging of Kidney Disease* + --+ --+ ------+| GFR (mL/min/1.73 m2) ?| With Kidney Damage ?| ?Without Kidney Damage+ --------+ --------+ +| ?>90 ?| ?Stage one ?| ? Normal ?+ ---+ ---+ -------+| ?60-89 ?| ?Stage two ?| ? Decreased GFR ? + --+ --+ ------+| ?30-59 ?| ?Stage three ?| ? Stage three ? + --+ --+ ------+| ?15-29 ?| ?Stage four ? | ? Stage four ?+ ---+ ---+ -------+| ?<15 (or dialysis) ? ?| ?Stage five ? | ? Stage five ?+ ---+ ---+ -------+ *Each stage assumes the associated GFR level has been in effect for at least three months. ?Stages 1 to 5, with or without kidney disease, indicate chronic kidney disease. Notes: Determination of stages one and two (with eGFR >59mL/min/1.73 m2) requires estimation of kidney damage for at least three months as defined by structural or functional abnormalities of the kidney, manifested by either:Pathological abnormalities or Markers of kidney damage (including abnormalities in the composition of the blood or urine or abnormalities in imaging tests). Lab Interpretation Abnormal (test code = 49022-8) [facility] METABOLIC PANEL (NA, K, CL, CO2, GLUCOSE, BUN, CREATININE, CA)2023-02-18 19:01:30 Test Item Value Reference Range Interpretation Comments NA (test code = 142 mmol/L 135-145 1060877901) K (test code = 4.2 mmol/L 3.5-5.0 5929375733) CL (test code = 107 mmol/L 98-108 3449739052) CO2 TOTAL (test code = 23 mmol/L 23-31 0354199092) AGAP (test code = 12 2-16 8625887728) BUN (test code = 66 mg/dL 7-23 H 2163419012) GLUCOSE (test code = 201 mg/dL 70-110 H 8859013469) CREATININE (test code = 2.71 mg/dL 0.60-1.25 H 5565549699) CALCIUM (test code = 7.3 mg/dL 8.6-10.6 L 5622753117) eGFR (test code = 24.0 mL/min/1.73m2 2284620899) MIKAYLA (test code = MIKAYLA) Association of Glomerular Filtration Rate (GFR) and Staging of Kidney Disease* + --+ --+ ------+| GFR (mL/min/1.73 m2) ?| With Kidney Damage ?| ?Without Kidney Damage+ --------+ --------+ +| ?>90 ?| ?Stage one ?| ? Normal ?+ ---+ ---+ -------+| ?60-89 ?| ?Stage two ?| ? Decreased GFR ? + --+ --+ ------+| ?30-59 ?| ?Stage three ?| ? Stage three ? + --+ --+ ------+| ?15-29 ?| ?Stage four ? | ? Stage four ?+ ---+ ---+ -------+| ?<15 (or dialysis) ? ?| ?Stage five ? | ? Stage five ?+ ---+ ---+ -------+ *Each stage assumes the associated GFR level has been in effect for at least three months. ?Stages 1 to 5, with or without kidney disease, indicate chronic kidney disease. Notes: Determination of stages one and two (with eGFR >59mL/min/1.73 m2) requires estimation of kidney damage for at least three months as defined by structural or functional abnormalities of the kidney, manifested by either:Pathological abnormalities or Markers of kidney damage (including abnormalities in the composition of the blood or urine or abnormalities in imaging tests). Lab Interpretation Abnormal (test code = 58798-3) [facility] GLUCOSE (AUTOMATED)2023-02-18 18:42:59 Test Item Value Reference Range Interpretation Comments POCT GLU (test code = 1616050261) 198 mg/dL 70-110 H Lab Interpretation (test code = Abnormal 70583-3) [facility] GLUCOSE (AUTOMATED)2023-02-18 18:42:59 Test Item Value Reference Range Interpretation Comments POCT GLU (test code = 1757691331) 198 mg/dL 70-110 H Lab Interpretation (test code = Abnormal 32637-6) [facility] GLUCOSE (AUTOMATED)2023-02-18 13:17:43 Test Item Value Reference Range Interpretation Comments POCT GLU (test code = 6845457516) 211 mg/dL 70-110 H Lab Interpretation (test code = Abnormal 82214-2) [facility] GLUCOSE (AUTOMATED)2023-02-18 13:17:43 Test Item Value Reference Range Interpretation Comments POCT GLU (test code = 1746338347) 211 mg/dL 70-110 H Lab Interpretation (test code = Abnormal 67925-0) [facility] WITH [id number] 10:27:49 Test Item Value Reference Range Interpretation Comments WBC (test code = 12.54 See_Comment H [Automated 6690-2) message] The sy stem which generated this result transmitted reference range : 4.20 - 10.70 10*3/?L. The reference range was not used to interpret this result as normal/abnormal . RBC (test code = 2.50 See_Comment L [Automated 789-8) message] The sy stem which generated this result transmitted reference range : 4.26 - 5.52 10*6/?L. The reference range was not used to interpret this result as normal/abnormal . HGB (test code = 7.6 g/dL 12.2-16.4 L 718-7) HCT (test code = 23.4 % 38.4-49.3 L 4544-3) MCV (test code = 93.6 fL 81.7-95.6 787-2) MCH (test code = 30.4 pg 26.1-32.7 785-6) MCHC (test code = 32.5 g/dL 31.2-35.0 786-4) RDW-SD (test code = 53.1 fL 38.5-51.6 H 43610-6) RDW-CV (test code = 15.7 % 12.1-15.4 H 788-0) PLT (test code = 37 See_Comment LL [Automated 777-3) message] The sy stem which generated this result transmitted reference range : 150 - 328 10*3/ ?L. The reference r kyra was not used to interpret this result as normal/abnormal . MPV (test code = 13.5 fL 9.8-13.0 H 44648-7) IPF % (test code = 18.5 % 1.2-10.7 H Platelet count 7899470818) measured by fluorescence method. NRBC/100 WBC (test 0.8 See_Comment [Automat ed code = 0022864494) message] The system which generated this result transmitted reference range : 0.0 - 10.0 /100 WBCs. The refer ence range was not u sed to interpret th is result as normal/abnormal . NRBC x10^3 (test code 0.10 See_Comment [Auto mated = 8845574490) message] The s ystem which generated this result transmitted reference range : 10*3/?L. The reference range was not used to interpret this result as normal/abnormal . GRAN MAT (NEUT) % 80.2 % (test code = 770-8) IMM GRAN % (test code 1.20 % = 9287318740) LYMPH % (test code = 9.3 % 736-9) MONO % (test code = 7.5 % 5905-5) EOS % (test code = 1.6 % 713-8) BASO % (test code = 0.2 % 706-2) GRAN MAT x10^3(ANC) 10.05 10*3/uL 1.99-6.95 H (test code = 2682063419) IMM GRAN x10^3 (test 0.15 10*3/uL 0.00-0.06 H code = 9489127238) LYMPH x10^3 (test 1.17 10*3/uL 1.09-3.23 code = 731-0) MONO x10^3 (test code 0.94 10*3/uL 0.36-1.02 = 742-7) EOS x10^3 (test code 0.20 10*3/uL 0.06-0.53 = 711-2) BASO x10^3 (test code 0.03 10*3/uL 0.01-0.09 = 704-7) POLYCHROMASIA (test 2+ See_Comment [Automa che code = 44557-7) message] The system which generated this result transmitted reference range : 2+. The referen ce range was not u sed to interpret th is result as normal/abnormal . GIANT PLATELETS (test Present See_Comment A [Auto mated code = 5908-9) message] The system which generated this result transmitted reference range : (none). The reference range was not used to interpret this result as normal/abnormal . Lab Interpretation Abnormal (test code = 47543-2) [facility] WITH [id number] 10:27:49 Test Item Value Reference Range Interpretation Comments WBC (test code = 12.54 See_Comment H [Automated 0690-2) message] The sy stem which generated this result transmitted reference range : 4.20 - 10.70 10*3/?L. The reference range was not used to interpret this result as normal/abnormal . RBC (test code = 2.50 See_Comment L [Automated 672-8) message] The sy stem which generated this result transmitted reference range : 4.26 - 5.52 10*6/?L. The reference range was not used to interpret this result as normal/abnormal . HGB (test code = 7.6 g/dL 12.2-16.4 L 718-7) HCT (test code = 23.4 % 38.4-49.3 L 4544-3) MCV (test code = 93.6 fL 81.7-95.6 787-2) MCH (test code = 30.4 pg 26.1-32.7 785-6) MCHC (test code = 32.5 g/dL 31.2-35.0 786-4) RDW-SD (test code = 53.1 fL 38.5-51.6 H 84800-0) RDW-CV (test code = 15.7 % 12.1-15.4 H 788-0) PLT (test code = 37 See_Comment LL [Automated 777-3) message] The sy stem which generated this result transmitted reference range : 150 - 328 10*3/ ?L. The reference r kyra was not used to interpret this result as normal/abnormal . MPV (test code = 13.5 fL 9.8-13.0 H 94823-4) IPF % (test code = 18.5 % 1.2-10.7 H Platelet count [id number]) measured by fluorescence method. NRBC/100 WBC (test 0.8 See_Comment [Automat ed code = 3924754328) message] The system which generated this result transmitted reference range : 0.0 - 10.0 /100 WBCs. The refer ence range was not u sed to interpret th is result as normal/abnormal . NRBC x10^3 (test code 0.10 See_Comment [Auto mated = 4564383508) message] The s ystem which generated this result transmitted reference range : 10*3/?L. The reference range was not used to interpret this result as normal/abnormal . GRAN MAT (NEUT) % 80.2 % (test code = 770-8) IMM GRAN % (test code 1.20 % = 3590431696) LYMPH % (test code = 9.3 % 736-9) MONO % (test code = 7.5 % 5905-5) EOS % (test code = 1.6 % 713-8) BASO % (test code = 0.2 % 706-2) GRAN MAT x10^3(ANC) 10.05 10*3/uL 1.99-6.95 H (test code = 8329251017) IMM GRAN x10^3 (test 0.15 10*3/uL 0.00-0.06 H code = 1120318113) LYMPH x10^3 (test 1.17 10*3/uL 1.09-3.23 code = 731-0) MONO x10^3 (test code 0.94 10*3/uL 0.36-1.02 = 742-7) EOS x10^3 (test code 0.20 10*3/uL 0.06-0.53 = 711-2) BASO x10^3 (test code 0.03 10*3/uL 0.01-0.09 = 704-7) POLYCHROMASIA (test 2+ See_Comment [Automa che code = 52202-0) message] The system which generated this result transmitted reference range : 2+. The referen ce range was not u sed to interpret th is result as normal/abnormal . GIANT PLATELETS (test Present See_Comment A [Auto mated code = 5908-9) message] The system which generated this result transmitted reference range : (none). The reference range was not used to interpret this result as normal/abnormal . Lab Interpretation Abnormal (test code = 05542-3) [facility] Test Item Value Reference Range Interpretation Comments PHOSPHORUS (test code = 7657581176) 3.4 mg/dL 2.5-5.0 Lab Interpretation (test code = Normal 90905-0) [facility]2023-06-19 09:53:59 Test Item Value Reference Range Interpretation Comments MAGNESIUM (test code = 9752478237) 2.5 mg/dL 1.7-2.4 H Lab Interpretation (test code = Abnormal 33326-0) [facility] Test Item Value Reference Range Interpretation Comments PHOSPHORUS (test code = 4745502413) 3.4 mg/dL 2.5-5.0 Lab Interpretation (test code = Normal 58160-2) [facility]2023-06-19 09:53:59 Test Item Value Reference Range Interpretation Comments MAGNESIUM (test code = 6474170859) 2.5 mg/dL 1.7-2.4 H Lab Interpretation (test code = Abnormal 15720-9) [facility] METABOLIC PANEL (NA, K, CL, CO2, GLUCOSE, BUN, CREATININE, CA)2023-02-18 09:53:58 Test Item Value Reference Range Interpretation Comments NA (test code = 139 mmol/L 135-145 7073167224) K (test code = 4.4 mmol/L 3.5-5.0 4863193162) CL (test code = 107 mmol/L 98-108 8416575919) CO2 TOTAL (test code = 23 mmol/L 23-31 6834621798) AGAP (test code = 9 2-16 4694589377) BUN (test code = 64 mg/dL 7-23 H 9370505423) GLUCOSE (test code = 204 mg/dL 70-110 H 2879519451) CREATININE (test code = 2.65 mg/dL 0.60-1.25 H 2495728411) CALCIUM (test code = 7.3 mg/dL 8.6-10.6 L 6804545901) eGFR (test code = 24.7 mL/min/1.73m2 5938662618) MIKAYLA (test code = MIKAYLA) Association of Glomerular Filtration Rate (GFR) and Staging of Kidney Disease* + --+ --+ ------+| GFR (mL/min/1.73 m2) ?| With Kidney Damage ?| ?Without Kidney Damage+ --------+ --------+ +| ?>90 ?| ?Stage one ?| ? Normal ?+ ---+ ---+ -------+| ?60-89 ?| ?Stage two ?| ? Decreased GFR ? + --+ --+ ------+| ?30-59 ?| ?Stage three ?| ? Stage three ? + --+ --+ ------+| ?15-29 ?| ?Stage four ? | ? Stage four ?+ ---+ ---+ -------+| ?<15 (or dialysis) ? ?| ?Stage five ? | ? Stage five ?+ ---+ ---+ -------+ *Each stage assumes the associated GFR level has been in effect for at least three months. ?Stages 1 to 5, with or without kidney disease, indicate chronic kidney disease. Notes: Determination of stages one and two (with eGFR >59mL/min/1.73 m2) requires estimation of kidney damage for at least three months as defined by structural or functional abnormalities of the kidney, manifested by either:Pathological abnormalities or Markers of kidney damage (including abnormalities in the composition of the blood or urine or abnormalities in imaging tests). Lab Interpretation Abnormal (test code = 90179-9) [facility] METABOLIC PANEL (NA, K, CL, CO2, GLUCOSE, BUN, CREATININE, CA)2023-02-18 09:53:58 Test Item Value Reference Range Interpretation Comments NA (test code = 139 mmol/L 135-145 3611828276) K (test code = 4.4 mmol/L 3.5-5.0 0144956484) CL (test code = 107 mmol/L 98-108 0465844496) CO2 TOTAL (test code = 23 mmol/L 23-31 9801067188) AGAP (test code = 9 2-16 3248737059) BUN (test code = 64 mg/dL 7-23 H 9157392857) GLUCOSE (test code = 204 mg/dL 70-110 H 2261672990) CREATININE (test code = 2.65 mg/dL 0.60-1.25 H 1547371632) CALCIUM (test code = 7.3 mg/dL 8.6-10.6 L 3692888520) eGFR (test code = 24.7 mL/min/1.73m2 6174389378) MIKAYLA (test code = MIKAYLA) Association of Glomerular Filtration Rate (GFR) and Staging of Kidney Disease* + --+ --+ ------+| GFR (mL/min/1.73 m2) ?| With Kidney Damage ?| ?Without Kidney Damage+ --------+ --------+ +| ?>90 ?| ?Stage one ?| ? Normal ?+ ---+ ---+ -------+| ?60-89 ?| ?Stage two ?| ? Decreased GFR ? + --+ --+ ------+| ?30-59 ?| ?Stage three ?| ? Stage three ? + --+ --+ ------+| ?15-29 ?| ?Stage four ? | ? Stage four ?+ ---+ ---+ -------+| ?<15 (or dialysis) ? ?| ?Stage five ? | ? Stage five ?+ ---+ ---+ -------+ *Each stage assumes the associated GFR level has been in effect for at least three months. ?Stages 1 to 5, with or without kidney disease, indicate chronic kidney disease. Notes: Determination of stages one and two (with eGFR >59mL/min/1.73 m2) requires estimation of kidney damage for at least three months as defined by structural or functional abnormalities of the kidney, manifested by either:Pathological abnormalities or Markers of kidney damage (including abnormalities in the composition of the blood or urine or abnormalities in imaging tests). Lab Interpretation Abnormal (test code = 28115-4) [facility] L[facility] [id number] 09:17:54 Test Item Value Reference Range Interpretation Comments PH (test code = 7.34 7.32-7.42 2398538312) PCO2 ANANDA (test code = 44 See_Comment [Auto mated 8224403049) message] The sy stem which generated this result transmitted reference range : 41 - 51 mmHg. The reference range was not used to interpret this result as normal/abnormal . PO2 ANANDA (test code = 31 See_Comment [Autom ated 6934950830) message] The sy stem which generated this result transmitted reference range : 25 - 40 mmHg. The reference range was not used to interpret this result as normal/abnormal . HCO3 ANANDA (test code = 23 See_Comment L [Auto mated 1235149806) message] The sy stem which generated this result transmitted reference range : 24 - 28 mEq/L. The reference range was not used to interpret this result as normal/abnormal . AC VBE(BEAKER) (test -2.6 mEq/L code = 6975554617) THB ANANDA (test code = 8.4 g/dL 13.5-18.0 L 5823890560) %O2HB ANANDA (test code = 47.1 % 52.0-63.0 L 6402203749) %COHB ANANDA (test code = 0.8 % 0.0-1.5 2290748901) %METHB ANANDA (test code = 0.3 % 0.4-1.5 L 0078959915) VOL%O2 ANANDA (test code = 5.6 % 6.0-12.0 L 6224525717) NA (test code = 139 mmol/L 135-145 3367217012) K+ (test code = 4.3 mmol/L 3.5-5.0 4919040630) AC CA IONZ (test code = 4.30 mg/dL 4.50-5.30 L 9379389164) GLUCOSE (test code = 213 mg/dL 70-110 H 8022393708) LACTIC ACID (test code 2.01 mmol/L 0.50-2.20 = 9217989995) Lab Interpretation Abnormal (test code = 44467-3) [facility] [id number] 09:17:54 Test Item Value Reference Range Interpretation Comments PH (test code = 7.34 7.32-7.42 5026716693) PCO2 ANANDA (test code = 44 See_Comment [Auto mated 2281940011) message] The sy stem which generated this result transmitted reference range : 41 - 51 mmHg. The reference range was not used to interpret this result as normal/abnormal . PO2 ANANDA (test code = 31 See_Comment [Autom ated 6300210309) message] The sy stem which generated this result transmitted reference range : 25 - 40 mmHg. The reference range was not used to interpret this result as normal/abnormal . HCO3 ANANDA (test code = 23 See_Comment L [Auto mated 3575302039) message] The sy stem which generated this result transmitted reference range : 24 - 28 mEq/L. The reference range was not used to interpret this result as normal/abnormal . AC VBE(BEAKER) (test -2.6 mEq/L code = 6212566751) THB ANANDA (test code = 8.4 g/dL 13.5-18.0 L 8782303092) %O2HB ANANDA (test code = 47.1 % 52.0-63.0 L 5573718754) %COHB ANANDA (test code = 0.8 % 0.0-1.5 9596822513) %METHB ANANDA (test code = 0.3 % 0.4-1.5 L 3625294316) VOL%O2 ANANDA (test code = 5.6 % 6.0-12.0 L 2045516580) NA (test code = 139 mmol/L 135-145 5218993920) K+ (test code = 4.3 mmol/L 3.5-5.0 4853309410) AC CA IONZ (test code = 4.30 mg/dL 4.50-5.30 L 3627671485) GLUCOSE (test code = 213 mg/dL 70-110 H 0947492476) LACTIC ACID (test code 2.01 mmol/L 0.50-2.20 = 1911209178) Lab Interpretation Abnormal (test code = 49702-3) [facility] GLUCOSE (AUTOMATED)2023-02-18 09:10:26 Test Item Value Reference Range Interpretation Comments POCT GLU (test code = 0796691038) 225 mg/dL 70-110 H Lab Interpretation (test code = Abnormal 68357-9) [facility] GLUCOSE (AUTOMATED)2023-02-18 09:10:26 Test Item Value Reference Range Interpretation Comments POCT GLU (test code = 6111938773) 225 mg/dL 70-110 H Lab Interpretation (test code = Abnormal 61063-0) [facility] GLUCOSE (AUTOMATED)2023-02-18 05:25:04 Test Item Value Reference Range Interpretation Comments POCT GLU (test code = 7582493820) 132 mg/dL 70-110 H Lab Interpretation (test code = Abnormal 78539-0) [facility] GLUCOSE (AUTOMATED)2023-02-18 05:25:04 Test Item Value Reference Range Interpretation Comments POCT GLU (test code = 5464926264) 132 mg/dL 70-110 H Lab Interpretation (test code = Abnormal 93828-6) [facility] GLUCOSE (AUTOMATED)2023-02-18 03:13:25 Test Item Value Reference Range Interpretation Comments POCT GLU (test code = 187 mg/dL 70-110 H Notifi ed Provider 7745914265) Lab Interpretation (test Abnormal code = 31611-2) [facility] GLUCOSE (AUTOMATED)2023-02-18 03:13:25 Test Item Value Reference Range Interpretation Comments POCT GLU (test code = 187 mg/dL 70-110 H Notifi ed Provider 9804247276) Lab Interpretation (test Abnormal code = 80536-1) [facility] GLUCOSE (AUTOMATED)2023-02-18 01:55:09 Test Item Value Reference Range Interpretation Comments POCT GLU (test code = 3273969693) 250 mg/dL 70-110 H Lab Interpretation (test code = Abnormal 05966-4) [facility] GLUCOSE (AUTOMATED)2023-02-18 01:55:09 Test Item Value Reference Range Interpretation Comments POCT GLU (test code = 8764752348) 250 mg/dL 70-110 H Lab Interpretation (test code = Abnormal 63245-9) [facility] GLUCOSE (AUTOMATED)2023-02-18 01:47:52 Test Item Value Reference Range Interpretation Comments POCT GLU (test code = 5635764276) 43 mg/dL 70-110 LL Lab Interpretation (test code = Abnormal 70869-0) [facility] GLUCOSE (AUTOMATED)2023-02-18 01:47:52 Test Item Value Reference Range Interpretation Comments POCT GLU (test code = 4091367613) 43 mg/dL 70-110 LL Lab Interpretation (test code = Abnormal 42332-4) [facility] GLUCOSE (AUTOMATED)2023-02-18 01:24:26 Test Item Value Reference Range Interpretation Comments POCT GLU (test code = 2659378299) 56 mg/dL 70-110 L Lab Interpretation (test code = Abnormal 79575-5) [facility] GLUCOSE (AUTOMATED)2023-02-18 01:24:26 Test Item Value Reference Range Interpretation Comments POCT GLU (test code = 0864573250) 56 mg/dL 70-110 L Lab Interpretation (test code = Abnormal 22163-8) [facility] GLUCOSE (AUTOMATED)2023-02-18 00:49:25 Test Item Value Reference Range Interpretation Comments POCT GLU (test code = 7714683680) 53 mg/dL 70-110 L Lab Interpretation (test code = Abnormal 27359-4) [facility] 00:49:25 Test Item Value Reference Range Interpretation Comments POCT GLU (test code = 7473201695) 53 mg/dL 70-110 L Lab Interpretation (test code = Abnormal 70631-3) [facility] GLUCOSE (AUTOMATED)2023-02-17 22:17:51 Test Item Value Reference Range Interpretation Comments POCT GLU (test code = 1945375527) 106 mg/dL 70-110 Lab Interpretation (test code = Normal 27627-8) [facility] GLUCOSE (AUTOMATED)2023-02-17 22:17:51 Test Item Value Reference Range Interpretation Comments POCT GLU (test code = 8617952376) 106 mg/dL 70-110 Lab Interpretation (test code = Normal 21875-0) [facility] L[facility] Acid While [facility]ubated 2023-02-17 17:52:47 Test Item Value Reference Range Interpretation Comments PH (test code = 2) 7.44 7.35-7.45 PCO2 (test code = 33 See_Comment L [Automate d 4276499857) message] The sy stem which generated this result transmitted reference range : 35 - 45 mmHg. The reference range was not used to interpret this result as normal/abnormal . PO2 (test code = 95 See_Comment [Automated 7043838784) message] The sy stem which generated this result transmitted reference range : 80 - 100 mmHg. The reference range was not used to interpret this result as normal/abnormal . HCO3 (test code = 22 See_Comment [Automate d 0579390187) message] The sy stem which generated this result transmitted reference range : 22 - 26 mEq/L. The reference range was not used to interpret this result as normal/abnormal . BE (test code = -1.9 See_Comment [Automated 4305677665) message] The sy stem which generated this result transmitted reference range : -3.0 - 3.0 mEq/ L. The reference r kyra was not used to interpret this result as normal/abnormal . THB (test code = 8.6 g/dL 13.5-18.0 L 0885245825) %O2HB (test code = 96.0 % 94.0-99.0 9690162074) %COHB ART (test code = 0.7 % 0.0-1.5 0710495324) %METHB ART (test code = 0.1 % 0.4-1.5 L 6116073540) VOL%O2 ART (test code = 11.8 % 15.0-23.0 L 5625232247) NA (test code = 137 mmol/L 135-145 8486461710) K+ (test code = 4.1 mmol/L 3.5-5.0 9990322743) AC CA IONZ (test code = 4.40 mg/dL 4.50-5.30 L 9387784140) GLUCOSE (test code = 158 mg/dL 70-110 H 1710819912) LACTIC ACID (test code 1.75 mmol/L 0.50-2.20 = 6030726447) Lab Interpretation Abnormal (test code = 32497-2) [facility] L[facility] Acid While intubated 2023-02-17 17:52:47 Test Item Value Reference Range Interpretation Comments PH (test code = 2) 7.44 7.35-7.45 PCO2 (test code = 33 See_Comment L [Automate d 1951258669) message] The sy stem which generated this result transmitted reference range : 35 - 45 mmHg. The reference range was not used to interpret this result as normal/abnormal . PO2 (test code = 95 See_Comment [Automated 6073624790) message] The sy stem which generated this result transmitted reference range : 80 - 100 mmHg. The reference range was not used to interpret this result as normal/abnormal . HCO3 (test code = 22 See_Comment [Automate d 4792912697) message] The sy stem which generated this result transmitted reference range : 22 - 26 mEq/L. The reference range was not used to interpret this result as normal/abnormal . BE (test code = -1.9 See_Comment [Automated 7251740230) message] The sy stem which generated this result transmitted reference range : -3.0 - 3.0 mEq/ L. The reference r kyra was not used to interpret this result as normal/abnormal . THB (test code = 8.6 g/dL 13.5-18.0 L 2356549218) %O2HB (test code = 96.0 % 94.0-99.0 5779707352) %COHB ART (test code = 0.7 % 0.0-1.5 4148875690) %METHB ART (test code = 0.1 % 0.4-1.5 L 8837187081) VOL%O2 ART (test code = 11.8 % 15.0-23.0 L 9737895150) NA (test code = 137 mmol/L 135-145 4270357472) K+ (test code = 4.1 mmol/L 3.5-5.0 5023512771) AC CA IONZ (test code = 4.40 mg/dL 4.50-5.30 L 0208519983) GLUCOSE (test code = 158 mg/dL 70-110 H 0921347643) LACTIC ACID (test code 1.75 mmol/L 0.50-2.20 = 3328285639) Lab Interpretation Abnormal (test code = 32258-3) [facility]-17 16:53:31 Test Item Value Reference Range Interpretation Comments PH (test code = 2) 7.44 7.35-7.45 PCO2 (test code = 34 See_Comment L [Automate d message] 1193152385) The system [employer] generated this result transmit che reference range : 35 - 45 mmHg. The reference range was not used to interpret this result as normal/abnormal . PO2 (test code = 74 See_Comment L [Automated message] 5870713390) The system [employer] generated this result transmit che reference range : 80 - 100 mmHg. The reference range was not used to interpret this result as normal/abnormal . HCO3 (test code = 23 See_Comment [Automate d message] 3567693023) The system [employer] generated this result transmit che reference range : 22 - 26 mEq/L. The reference range was not used to interpret this result as normal/abnormal . BE (test code = -1.4 See_Comment [Automated message] 4797890858) The system [employer] generated this result transmit che reference range : -3.0 - 3.0 mEq/ L. The reference r kyra was not used to interpret this result as normal/abnormal . THB (test code = 8.3 g/dL 13.5-18.0 LL 3291056187) %O2HB (test code = 93.7 % 94.0-99.0 L 8280211635) %COHB ART (test code = 0.5 % 0.0-1.5 5947937675) %METHB ART (test code = 0.1 % 0.4-1.5 L 2276290968) VOL%O2 ART (test code = 11.0 % 15.0-23.0 L 7008345122) NA (test code = 138 mmol/L 135-145 2571633345) K+ (test code = 4.1 mmol/L 3.5-5.0 1682968681) AC CA IONZ (test code = 4.30 mg/dL 4.50-5.30 L 4732758276) GLUCOSE (test code = 166 mg/dL 70-110 H 5915461280) Lab Interpretation Abnormal (test code = 51195-4) [facility]23-[facility]-17 16:53:31 Test Item Value Reference Range Interpretation Comments PH (test code = 2) 7.44 7.35-7.45 PCO2 (test code = 34 See_Comment L [Automate d message] 8554623009) The system [employer] generated this result transmit che reference range : 35 - 45 mmHg. The reference range was not used to interpret this result as normal/abnormal . PO2 (test code = 74 See_Comment L [Automated message] 3633675438) The system [employer] generated this result transmit che reference range : 80 - 100 mmHg. The reference range was not used to interpret this result as normal/abnormal . HCO3 (test code = 23 See_Comment [Automate d message] 0822251332) The system [employer] generated this result transmit che reference range : 22 - 26 mEq/L. The reference range was not used to interpret this result as normal/abnormal . BE (test code = -1.4 See_Comment [Automated message] 7431206577) The system [employer] generated this result transmit che reference range : -3.0 - 3.0 mEq/ L. The reference r kyra was not used to interpret this result as normal/abnormal . THB (test code = 8.3 g/dL 13.5-18.0 LL 9893072582) %O2HB (test code = 93.7 % 94.0-99.0 L 1037876149) %COHB ART (test code = 0.5 % 0.0-1.5 9274867728) %METHB ART (test code = 0.1 % 0.4-1.5 L 1891125789) VOL%O2 ART (test code = 11.0 % 15.0-23.0 L 6925998748) NA (test code = 138 mmol/L 135-145 5809941466) K+ (test code = 4.1 mmol/L 3.5-5.0 9259494427) AC CA IONZ (test code = 4.30 mg/dL 4.50-5.30 L 2574998848) GLUCOSE (test code = 166 mg/dL 70-110 H 2546939577) Lab Interpretation Abnormal (test code = 50704-2) [facility]-17 16:53:31 Test Item Value Reference Range Interpretation Comments PH (test code = 2) 7.44 7.35-7.45 PCO2 (test code = 34 See_Comment L [Automate d message] 7849073412) The system [employer] generated this result transmit che reference range : 35 - 45 mmHg. The reference range was not used to interpret this result as normal/abnormal . PO2 (test code = 74 See_Comment L [Automated message] 9294009521) The system [employer] generated this result transmit che reference range : 80 - 100 mmHg. The reference range was not used to interpret this result as normal/abnormal . HCO3 (test code = 23 See_Comment [Automate d message] 6453858553) The system [employer] generated this result transmit che reference range : 22 - 26 mEq/L. The reference range was not used to interpret this result as normal/abnormal . BE (test code = -1.4 See_Comment [Automated message] 7648305535) The system [employer] generated this result transmit che reference range : -3.0 - 3.0 mEq/ L. The reference r kyra was not used to interpret this result as normal/abnormal . THB (test code = 8.3 g/dL 13.5-18.0 LL 1188919094) %O2HB (test code = 93.7 % 94.0-99.0 L 9927739253) %COHB ART (test code = 0.5 % 0.0-1.5 4450214101) %METHB ART (test code = 0.1 % 0.4-1.5 L 2868843332) VOL%O2 ART (test code = 11.0 % 15.0-23.0 L 6352175636) NA (test code = 138 mmol/L 135-145 4293675859) K+ (test code = 4.1 mmol/L 3.5-5.0 5077285849) AC CA IONZ (test code = 4.30 mg/dL 4.50-5.30 L 2132308157) GLUCOSE (test code = 166 mg/dL 70-110 H 4625019310) Lab Interpretation Abnormal (test code = 71875-8) [facility]-17 16:53:31 Test Item Value Reference Range Interpretation Comments PH (test code = 2) 7.44 7.35-7.45 PCO2 (test code = 34 See_Comment L [Automate d message] 7483019089) The system [employer] generated this result transmit che reference range : 35 - 45 mmHg. The reference range was not used to interpret this result as normal/abnormal . PO2 (test code = 74 See_Comment L [Automated message] 6847457530) The system [employer] generated this result transmit che reference range : 80 - 100 mmHg. The reference range was not used to interpret this result as normal/abnormal . HCO3 (test code = 23 See_Comment [Automate d message] 1139458597) The system [employer] generated this result transmit che reference range : 22 - 26 mEq/L. The reference range was not used to interpret this result as normal/abnormal . BE (test code = -1.4 See_Comment [Automated message] 9839540262) The system [employer] generated this result transmit che reference range : -3.0 - 3.0 mEq/ L. The reference r kyra was not used to interpret this result as normal/abnormal . THB (test code = 8.3 g/dL 13.5-18.0 LL 5948787316) %O2HB (test code = 93.7 % 94.0-99.0 L 6275264999) %COHB ART (test code = 0.5 % 0.0-1.5 7343621965) %METHB ART (test code = 0.1 % 0.4-1.5 L 5759516006) VOL%O2 ART (test code = 11.0 % 15.0-23.0 L 0985452646) NA (test code = 138 mmol/L 135-145 4925371251) K+ (test code = 4.1 mmol/L 3.5-5.0 4550917995) AC CA IONZ (test code = 4.30 mg/dL 4.50-5.30 L 0090868539) GLUCOSE (test code = 166 mg/dL 70-110 H 0709578806) Lab Interpretation Abnormal (test code = 70516-2) [facility] GLUCOSE (AUTOMATED)2023-02-17 12:50:22 Test Item Value Reference Range Interpretation Comments POCT GLU (test code = 8713310826) 187 mg/dL 70-110 H Lab Interpretation (test code = Abnormal 28175-7) [facility] GLUCOSE (AUTOMATED)2023-02-17 12:50:22 Test Item Value Reference Range Interpretation Comments POCT GLU (test code = 4437516542) 187 mg/dL 70-110 H Lab Interpretation (test code = Abnormal 35870-3) [facility] GLUCOSE (AUTOMATED)2023-02-17 09:15:58 Test Item Value Reference Range Interpretation Comments POCT GLU (test code = 4055493548) 162 mg/dL 70-110 H Lab Interpretation (test code = Abnormal 35229-5) [facility] GLUCOSE (AUTOMATED)2023-02-17 09:15:58 Test Item Value Reference Range Interpretation Comments POCT GLU (test code = 8473810815) 162 mg/dL 70-110 H Lab Interpretation (test code = Abnormal 14393-1) [facility] GLUCOSE (AUTOMATED)2023-02-17 04:51:36 Test Item Value Reference Range Interpretation Comments POCT GLU (test code = 2536172997) 159 mg/dL 70-110 H Lab Interpretation (test code = Abnormal 21148-3) [facility] GLUCOSE (AUTOMATED)2023-02-17 04:51:36 Test Item Value Reference Range Interpretation Comments POCT GLU (test code = 9882464006) 159 mg/dL 70-110 H Lab Interpretation (test code = Abnormal 54117-2) [facility] GLUCOSE (AUTOMATED)2023-02-17 00:49:36 Test Item Value Reference Range Interpretation Comments POCT GLU (test code = 5164989077) 185 mg/dL 70-110 H Lab Interpretation (test code = Abnormal 48177-9) [facility] GLUCOSE (AUTOMATED)2023-02-17 00:49:36 Test Item Value Reference Range Interpretation Comments POCT GLU (test code = 1428938266) 185 mg/dL 70-110 H Lab Interpretation (test code = Abnormal 93125-7) [facility] GLUCOSE (AUTOMATED)2023-02-16 23:44:30 Test Item Value Reference Range Interpretation Comments POCT GLU (test code = 8429712863) 196 mg/dL 70-110 H Lab Interpretation (test code = Abnormal 37148-2) [facility] GLUCOSE (AUTOMATED)2023-02-16 23:44:30 Test Item Value Reference Range Interpretation Comments POCT GLU (test code = 7435611919) 196 mg/dL 70-110 H Lab Interpretation (test code = Abnormal 67687-1) [facility] GLUCOSE (AUTOMATED)2023-02-16 16:49:31 Test Item Value Reference Range Interpretation Comments POCT GLU (test code = 8511391796) 237 mg/dL 70-110 H Lab Interpretation (test code = Abnormal 17388-7) [facility] GLUCOSE (AUTOMATED)2023-02-16 16:49:31 Test Item Value Reference Range Interpretation Comments POCT GLU (test code = 7901130551) 237 mg/dL 70-110 H Lab Interpretation (test code = Abnormal 34413-5) [facility] [id number] 14:17:23 Test Item Value Reference Range Interpretation Comments PH (test code = 2) 7.36 7.35-7.45 PCO2 (test code = 39 See_Comment [Automate d 1351206327) message] The sy stem which generated this result transmitted reference range : 35 - 45 mmHg. The reference range was not used to interpret this result as normal/abnormal . PO2 (test code = 30 See_Comment LL [Automated 4180892681) message] The sy stem which generated this result transmitted reference range : 80 - 100 mmHg. The reference range was not used to interpret this result as normal/abnormal . HCO3 (test code = 22 See_Comment [Automate d 4377929927) message] The sy stem which generated this result transmitted reference range : 22 - 26 mEq/L. The reference range was not used to interpret this result as normal/abnormal . BE (test code = -3.4 See_Comment L [Automated 2218473456) message] The sy stem which generated this result transmitted reference range : -3.0 - 3.0 mEq/ L. The reference r kyra was not used to interpret this result as normal/abnormal . THB (test code = 7.1 g/dL 13.5-18.0 LL 9142272056) %O2HB (test code = 54.8 % 94.0-99.0 L 9038635279) %COHB ART (test code = 0.7 % 0.0-1.5 6772384855) %METHB ART (test code = 0.4 % 0.4-1.5 1574753584) VOL%O2 ART (test code = 5.5 % 15.0-23.0 L 7274175113) NA (test code = 133 mmol/L 135-145 L 6241221351) K+ (test code = 4.6 mmol/L 3.5-5.0 3765507747) AC CA IONZ (test code = 4.30 mg/dL 4.50-5.30 L 3912231593) GLUCOSE (test code = 241 mg/dL 70-110 H 7311683001) LACTIC ACID (test code 2.73 mmol/L 0.50-2.20 H = 0180771877) Lab Interpretation Abnormal (test code = 22057-8) [facility] [id number] 14:17:23 Test Item Value Reference Range Interpretation Comments PH (test code = 2) 7.36 7.35-7.45 PCO2 (test code = 39 See_Comment [Automate d 1911055065) message] The sy stem which generated this result transmitted reference range : 35 - 45 mmHg. The reference range was not used to interpret this result as normal/abnormal . PO2 (test code = 30 See_Comment LL [Automated 8793500251) message] The sy stem which generated this result transmitted reference range : 80 - 100 mmHg. The reference range was not used to interpret this result as normal/abnormal . HCO3 (test code = 22 See_Comment [Automate d 5140453498) message] The sy stem which generated this result transmitted reference range : 22 - 26 mEq/L. The reference range was not used to interpret this result as normal/abnormal . BE (test code = -3.4 See_Comment L [Automated 2798129272) message] The sy stem which generated this result transmitted reference range : -3.0 - 3.0 mEq/ L. The reference r kyra was not used to interpret this result as normal/abnormal . THB (test code = 7.1 g/dL 13.5-18.0 LL 2114882870) %O2HB (test code = 54.8 % 94.0-99.0 L 1643079579) %COHB ART (test code = 0.7 % 0.0-1.5 8845901706) %METHB ART (test code = 0.4 % 0.4-1.5 9267811328) VOL%O2 ART (test code = 5.5 % 15.0-23.0 L 3986703793) NA (test code = 133 mmol/L 135-145 L 4099693700) K+ (test code = 4.6 mmol/L 3.5-5.0 9050886372) AC CA IONZ (test code = 4.30 mg/dL 4.50-5.30 L 4391624571) GLUCOSE (test code = 241 mg/dL 70-110 H 0115473628) LACTIC ACID (test code 2.73 mmol/L 0.50-2.20 H = 4816518504) Lab Interpretation Abnormal (test code = 39456-8) [facility] Packed RBC (in units)2023-02-16 13:29:02 Test Item Value Reference Range Interpretation Comments Cross Match Result Compatible (test code = 4409) ISBT Blood Type Code 5100 (test code = 727966) Unit Blood Type (test O Pos code = 4410) Unit Number (test [id number] code = 4411) Blood Expiration Date [id number] & Time (test code = 763372) Status Information Issued (test code = 4412) Product Red Blood Cells Identification (test code = 4413) Product Code (test [id number] Performed at [facility] code = 4414) Laboratory Services - [facility] Blood [address] [place] [address] [id number] Free: [phone] A No. [id number] [facility] Packed RBC (in units)2023-02-16 13:29:02 Test Item Value Reference Range Interpretation Comments Cross Match Result Compatible (test code = 4409) ISBT Blood Type Code 5100 (test code = 450120) Unit Blood Type (test O Pos code = 4410) Unit Number (test [id number] code = 4411) Blood Expiration Date [id number] & Time (test code = 710720) Status Information Issued (test code = 4412) Product Red Blood Cells Identification (test code = 4413) Product Code (test [id number] Performed at [facility] code = 4414) Laboratory Services - [facility] Blood [address] [place] [address] [id number] Free: [phone] A No. [id number] [facility] GLUCOSE (AUTOMATED)2023-02-16 12:34:28 Test Item Value Reference Range Interpretation Comments POCT GLU (test code = 3515781424) 234 mg/dL 70-110 H Lab Interpretation (test code = Abnormal 51010-5) [facility] GLUCOSE (AUTOMATED)2023-02-16 12:34:28 Test Item Value Reference Range Interpretation Comments POCT GLU (test code = 0943539871) 234 mg/dL 70-110 H Lab Interpretation (test code = Abnormal 84027-7) [facility] L[facility] Acid While intubated 2023-02-16 09:57:54 Test Item Value Reference Range Interpretation Comments PH (test code = 2) 7.44 7.35-7.45 PCO2 (test code = 36 See_Comment [Automate d 8613278071) message] The sy stem which generated this result transmitted reference range : 35 - 45 mmHg. The reference range was not used to interpret this result as normal/abnormal . PO2 (test code = 121 See_Comment H [Automated 3306444114) message] The sy stem which generated this result transmitted reference range : 80 - 100 mmHg. The reference range was not used to interpret this result as normal/abnormal . HCO3 (test code = 24 See_Comment [Automate d 8283553512) message] The sy stem which generated this result transmitted reference range : 22 - 26 mEq/L. The reference range was not used to interpret this result as normal/abnormal . BE (test code = -0.2 See_Comment [Automated 1029940925) message] The sy stem which generated this result transmitted reference range : -3.0 - 3.0 mEq/ L. The reference r kyra was not used to interpret this result as normal/abnormal . THB (test code = 8.4 g/dL 13.5-18.0 L 1029695169) %O2HB (test code = 97.2 % 94.0-99.0 4484952238) %COHB ART (test code = 0.3 % 0.0-1.5 3716198652) %METHB ART (test code = 0.3 % 0.4-1.5 L 0271442904) VOL%O2 ART (test code = 11.7 % 15.0-23.0 L 1277954883) NA (test code = 134 mmol/L 135-145 L 0231422919) K+ (test code = 4.5 mmol/L 3.5-5.0 5029252257) AC CA IONZ (test code = 4.40 mg/dL 4.50-5.30 L 4642991476) GLUCOSE (test code = 223 mg/dL 70-110 H 0268080487) LACTIC ACID (test code 2.06 mmol/L 0.50-2.20 = 9716924511) Lab Interpretation Abnormal (test code = 00759-4) [facility] L[facility] Acid While intubated 2023-02-16 09:57:54 Test Item Value Reference Range Interpretation Comments PH (test code = 2) 7.44 7.35-7.45 PCO2 (test code = 36 See_Comment [Automate d 4510093099) message] The sy stem which generated this result transmitted reference range : 35 - 45 mmHg. The reference range was not used to interpret this result as normal/abnormal . PO2 (test code = 121 See_Comment H [Automated 1645038925) message] The sy stem which generated this result transmitted reference range : 80 - 100 mmHg. The reference range was not used to interpret this result as normal/abnormal . HCO3 (test code = 24 See_Comment [Automate d 3851283708) message] The sy stem which generated this result transmitted reference range : 22 - 26 mEq/L. The reference range was not used to interpret this result as normal/abnormal . BE (test code = -0.2 See_Comment [Automated 7735796386) message] The sy stem which generated this result transmitted reference range : -3.0 - 3.0 mEq/ L. The reference r kyra was not used to interpret this result as normal/abnormal . THB (test code = 8.4 g/dL 13.5-18.0 L 6732486434) %O2HB (test code = 97.2 % 94.0-99.0 2378772962) %COHB ART (test code = 0.3 % 0.0-1.5 5801265806) %METHB ART (test code = 0.3 % 0.4-1.5 L 8012692544) VOL%O2 ART (test code = 11.7 % 15.0-23.0 L 4018902155) NA (test code = 134 mmol/L 135-145 L 8631041301) K+ (test code = 4.5 mmol/L 3.5-5.0 5117904551) AC CA IONZ (test code = 4.40 mg/dL 4.50-5.30 L 8046170666) GLUCOSE (test code = 223 mg/dL 70-110 H 1239780345) LACTIC ACID (test code 2.06 mmol/L 0.50-2.20 = 6342577449) Lab Interpretation Abnormal (test code = 62693-5) [facility] GLUCOSE (AUTOMATED)2023-02-16 09:49:07 Test Item Value Reference Range Interpretation Comments POCT GLU (test code = 9465080120) 230 mg/dL 70-110 H Lab Interpretation (test code = Abnormal 28925-7) [facility] GLUCOSE (AUTOMATED)2023-02-16 09:49:07 Test Item Value Reference Range Interpretation Comments POCT GLU (test code = 2496159675) 230 mg/dL 70-110 H Lab Interpretation (test code = Abnormal 27697-0) [facility] L[facility] Acid While intubated 2023-02-16 05:00:46 Test Item Value Reference Range Interpretation Comments PH (test code = 2) 7.45 7.35-7.45 PCO2 (test code = 33 See_Comment L [Automate d 2999119050) message] The sy stem which generated this result transmitted reference range : 35 - 45 mmHg. The reference range was not used to interpret this result as normal/abnormal . PO2 (test code = 141 See_Comment H [Automated 1719607489) message] The sy stem which generated this result transmitted reference range : 80 - 100 mmHg. The reference range was not used to interpret this result as normal/abnormal . HCO3 (test code = 22 See_Comment [Automate d 8586396534) message] The sy stem which generated this result transmitted reference range : 22 - 26 mEq/L. The reference range was not used to interpret this result as normal/abnormal . BE (test code = -1.6 See_Comment [Automated 5281921860) message] The sy stem which generated this result transmitted reference range : -3.0 - 3.0 mEq/ L. The reference r kyra was not used to interpret this result as normal/abnormal . THB (test code = 11.1 g/dL 13.5-18.0 L 9178881330) %O2HB (test code = 98.0 % 94.0-99.0 3531671920) %COHB ART (test code = 0.3 % 0.0-1.5 6074857544) %METHB ART (test code = 0.1 % 0.4-1.5 L 0568068158) VOL%O2 ART (test code = 15.6 % 15.0-23.0 6241347506) NA (test code = 134 mmol/L 135-145 L 7861672899) K+ (test code = 4.6 mmol/L 3.5-5.0 9834777548) AC CA IONZ (test code = 4.40 mg/dL 4.50-5.30 L 1485997737) GLUCOSE (test code = 215 mg/dL 70-110 H 1571228630) LACTIC ACID (test code 2.23 mmol/L 0.50-2.20 H = 2867079985) Lab Interpretation Abnormal (test code = 32259-7) [facility] L[facility] Acid While intubated 2023-02-16 05:00:46 Test Item Value Reference Range Interpretation Comments PH (test code = 2) 7.45 7.35-7.45 PCO2 (test code = 33 See_Comment L [Automate d 6569436983) message] The sy stem which generated this result transmitted reference range : 35 - 45 mmHg. The reference range was not used to interpret this result as normal/abnormal . PO2 (test code = 141 See_Comment H [Automated 8924070525) message] The sy stem which generated this result transmitted reference range : 80 - 100 mmHg. The reference range was not used to interpret this result as normal/abnormal . HCO3 (test code = 22 See_Comment [Automate d 3184297731) message] The sy stem which generated this result transmitted reference range : 22 - 26 mEq/L. The reference range was not used to interpret this result as normal/abnormal . BE (test code = -1.6 See_Comment [Automated 6411184252) message] The sy stem which generated this result transmitted reference range : -3.0 - 3.0 mEq/ L. The reference r kyra was not used to interpret this result as normal/abnormal . THB (test code = 11.1 g/dL 13.5-18.0 L 0512620556) %O2HB (test code = 98.0 % 94.0-99.0 2121381050) %COHB ART (test code = 0.3 % 0.0-1.5 9560642444) %METHB ART (test code = 0.1 % 0.4-1.5 L 0746129386) VOL%O2 ART (test code = 15.6 % 15.0-23.0 0116440257) NA (test code = 134 mmol/L 135-145 L 5484923128) K+ (test code = 4.6 mmol/L 3.5-5.0 9515043509) AC CA IONZ (test code = 4.40 mg/dL 4.50-5.30 L 2111934068) GLUCOSE (test code = 215 mg/dL 70-110 H 9013809070) LACTIC ACID (test code 2.23 mmol/L 0.50-2.20 H = 0507452852) Lab Interpretation Abnormal (test code = 32035-1) [facility] GLUCOSE (AUTOMATED)2023-02-16 04:49:29 Test Item Value Reference Range Interpretation Comments POCT GLU (test code = 4904850663) 230 mg/dL 70-110 H Lab Interpretation (test code = Abnormal 67650-6) [facility] GLUCOSE (AUTOMATED)2023-02-16 04:49:29 Test Item Value Reference Range Interpretation Comments POCT GLU (test code = 4875650317) 230 mg/dL 70-110 H Lab Interpretation (test code = Abnormal 37428-5) [facility] GLUCOSE (AUTOMATED)2023-02-16 01:19:03 Test Item Value Reference Range Interpretation Comments POCT GLU (test code = 1999604585) 222 mg/dL 70-110 H Lab Interpretation (test code = Abnormal 71191-2) [facility] GLUCOSE (AUTOMATED)2023-02-16 01:19:03 Test Item Value Reference Range Interpretation Comments POCT GLU (test code = 2467130679) 222 mg/dL 70-110 H Lab Interpretation (test code = Abnormal 08581-6) [facility] Lactic [id number] 23:07:33 Test Item Value Reference Range Interpretation Comments PH (test code = 2) 7.44 7.35-7.45 PCO2 (test code = 31 See_Comment L [Automate d 2008938416) message] The sy stem which generated this result transmitted reference range : 35 - 45 mmHg. The reference range was not used to interpret this result as normal/abnormal . PO2 (test code = 96 See_Comment [Automated 4484623917) message] The sy stem which generated this result transmitted reference range : 80 - 100 mmHg. The reference range was not used to interpret this result as normal/abnormal . HCO3 (test code = 21 See_Comment L [Automate d 7772322391) message] The sy stem which generated this result transmitted reference range : 22 - 26 mEq/L. The reference range was not used to interpret this result as normal/abnormal . BE (test code = -3.2 See_Comment L [Automated 3392639347) message] The sy stem which generated this result transmitted reference range : -3.0 - 3.0 mEq/ L. The reference r kyra was not used to interpret this result as normal/abnormal . THB (test code = 8.9 g/dL 13.5-18.0 L 5976444641) %O2HB (test code = 95.6 % 94.0-99.0 2915959771) %COHB ART (test code = 0.3 % 0.0-1.5 4485231636) %METHB ART (test code = 0.3 % 0.4-1.5 L 3682051279) VOL%O2 ART (test code = 12.1 % 15.0-23.0 L 4408742903) NA (test code = 135 mmol/L 135-145 7184490699) K+ (test code = 4.7 mmol/L 3.5-5.0 1437680190) AC CA IONZ (test code = 4.50 mg/dL 4.50-5.30 4952175672) GLUCOSE (test code = 202 mg/dL 70-110 H 5380225979) LACTIC ACID (test code 2.68 mmol/L 0.50-2.20 H = 3727048866) Lab Interpretation Abnormal (test code = 57221-7) [facility] Lactic [id number] 23:07:33 Test Item Value Reference Range Interpretation Comments PH (test code = 2) 7.44 7.35-7.45 PCO2 (test code = 31 See_Comment L [Automate d 1689013916) message] The sy stem which generated this result transmitted reference range : 35 - 45 mmHg. The reference range was not used to interpret this result as normal/abnormal . PO2 (test code = 96 See_Comment [Automated 8522613698) message] The sy stem which generated this result transmitted reference range : 80 - 100 mmHg. The reference range was not used to interpret this result as normal/abnormal . HCO3 (test code = 21 See_Comment L [Automate d 6259486685) message] The sy stem which generated this result transmitted reference range : 22 - 26 mEq/L. The reference range was not used to interpret this result as normal/abnormal . BE (test code = -3.2 See_Comment L [Automated 0727528049) message] The sy stem which generated this result transmitted reference range : -3.0 - 3.0 mEq/ L. The reference r kyra was not used to interpret this result as normal/abnormal . THB (test code = 8.9 g/dL 13.5-18.0 L 3772919430) %O2HB (test code = 95.6 % 94.0-99.0 5602619088) %COHB ART (test code = 0.3 % 0.0-1.5 9972712317) %METHB ART (test code = 0.3 % 0.4-1.5 L 3639079514) VOL%O2 ART (test code = 12.1 % 15.0-23.0 L 3221320053) NA (test code = 135 mmol/L 135-145 2975329952) K+ (test code = 4.7 mmol/L 3.5-5.0 3317347964) AC CA IONZ (test code = 4.50 mg/dL 4.50-5.30 4221827205) GLUCOSE (test code = 202 mg/dL 70-110 H 8802197852) LACTIC ACID (test code 2.68 mmol/L 0.50-2.20 H = 0964050054) Lab Interpretation Abnormal (test code = 97648-4) [facility] GLUCOSE (AUTOMATED)2023-02-15 20:29:21 Test Item Value Reference Range Interpretation Comments POCT GLU (test code = 5257952999) 225 mg/dL 70-110 H Lab Interpretation (test code = Abnormal 52818-9) [facility] GLUCOSE (AUTOMATED)2023-02-15 20:29:21 Test Item Value Reference Range Interpretation Comments POCT GLU (test code = 1873289847) 225 mg/dL 70-110 H Lab Interpretation (test code = Abnormal 30009-8) [facility] L[facility] Acid While intubated 2023-02-15 19:36:07 Test Item Value Reference Range Interpretation Comments PH (test code = 2) 7.43 7.35-7.45 PCO2 (test code = 35 See_Comment [Automate d 8150889904) message] The sy stem which generated this result transmitted reference range : 35 - 45 mmHg. The reference range was not used to interpret this result as normal/abnormal . PO2 (test code = 89 See_Comment [Automated 2109609328) message] The sy stem which generated this result transmitted reference range : 80 - 100 mmHg. The reference range was not used to interpret this result as normal/abnormal . HCO3 (test code = 23 See_Comment [Automate d 6049653247) message] The sy stem which generated this result transmitted reference range : 22 - 26 mEq/L. The reference range was not used to interpret this result as normal/abnormal . BE (test code = -1.2 See_Comment [Automated 6478423130) message] The sy stem which generated this result transmitted reference range : -3.0 - 3.0 mEq/ L. The reference r kyra was not used to interpret this result as normal/abnormal . THB (test code = 8.6 g/dL 13.5-18.0 L 3921101912) %O2HB (test code = 96.2 % 94.0-99.0 1642585902) %COHB ART (test code = 0.2 % 0.0-1.5 2550703753) %METHB ART (test code = 0.2 % 0.4-1.5 L 7028043329) VOL%O2 ART (test code = 11.8 % 15.0-23.0 L 6571295074) NA (test code = 135 mmol/L 135-145 9046888548) K+ (test code = 4.8 mmol/L 3.5-5.0 0703286840) AC CA IONZ (test code = 4.40 mg/dL 4.50-5.30 L 2730949098) GLUCOSE (test code = 213 mg/dL 70-110 H 6056303789) LACTIC ACID (test code 3.19 mmol/L 0.50-2.20 H = 7619273254) Lab Interpretation Abnormal (test code = 28402-1) [facility] L[facility] Acid While intubated 2023-02-15 19:36:07 Test Item Value Reference Range Interpretation Comments PH (test code = 2) 7.43 7.35-7.45 PCO2 (test code = 35 See_Comment [Automate d 3076583380) message] The sy stem which generated this result transmitted reference range : 35 - 45 mmHg. The reference range was not used to interpret this result as normal/abnormal . PO2 (test code = 89 See_Comment [Automated 6326665938) message] The sy stem which generated this result transmitted reference range : 80 - 100 mmHg. The reference range was not used to interpret this result as normal/abnormal . HCO3 (test code = 23 See_Comment [Automate d 9547774883) message] The sy stem which generated this result transmitted reference range : 22 - 26 mEq/L. The reference range was not used to interpret this result as normal/abnormal . BE (test code = -1.2 See_Comment [Automated 6699722710) message] The sy stem which generated this result transmitted reference range : -3.0 - 3.0 mEq/ L. The reference r kyra was not used to interpret this result as normal/abnormal . THB (test code = 8.6 g/dL 13.5-18.0 L 7815907816) %O2HB (test code = 96.2 % 94.0-99.0 2165529546) %COHB ART (test code = 0.2 % 0.0-1.5 1340211072) %METHB ART (test code = 0.2 % 0.4-1.5 L 4589282619) VOL%O2 ART (test code = 11.8 % 15.0-23.0 L 7127851275) NA (test code = 135 mmol/L 135-145 1918082980) K+ (test code = 4.8 mmol/L 3.5-5.0 5605992975) AC CA IONZ (test code = 4.40 mg/dL 4.50-5.30 L 7676242034) GLUCOSE (test code = 213 mg/dL 70-110 H 1893071900) LACTIC ACID (test code 3.19 mmol/L 0.50-2.20 H = 9524922363) Lab Interpretation Abnormal (test code = 30349-9) [facility] - [id number] 18:12:40 Test Item Value Reference Range Interpretation Comments HIT-Ab (test code = Negative Negative 75490-2) MIKAYLA (test code = MIKAYLA) Although a positive result obtained using this assay may indicate the presence of heparin-associated antibodies, a positive result DOES NOT CONFIRM the diagnosis of HIT. Some patiens may have naturally occurring antibodies to PF4. The positive or negative result should be used with other information, including the clinical context, in forming a diagnosis such as the ?4T score and the 2013 [place] [employer] guidelines. Lab Interpretation (test Normal code = 55933-1) [facility] - [id number] 18:12:40 Test Item Value Reference Range Interpretation Comments HIT-Ab (test code = Negative Negative 84426-6) MIKAYLA (test code = MIKAYLA) Although a positive result obtained using this assay may indicate the presence of heparin-associated antibodies, a positive result DOES NOT CONFIRM the diagnosis of HIT. Some patiens may have naturally occurring antibodies to PF4. The positive or negative result should be used with other information, including the clinical context, in forming a diagnosis such as the ?4T score and the 2013 [employer] guidelines. Lab Interpretation (test Normal code = 64927-5) [facility] L[facility] While [facility] 2023-02-15 17:37:10 Test Item Value Reference Range Interpretation Comments PH (test code = 2) 7.47 7.35-7.45 H PCO2 (test code = 28 See_Comment L [Automate d [id number]) message] The sy stem which generated this result transmitted reference range : 35 - 45 mmHg. The reference range was not used to interpret this result as normal/abnormal . PO2 (test code = 62 See_Comment L [Automated [id number]) message] The sy stem which generated this result transmitted reference range : 80 - 100 mmHg. The reference range was not used to interpret this result as normal/abnormal . HCO3 (test code = 20 See_Comment L [Automate d [id number]) message] The sy stem which generated this result transmitted reference range : 22 - 26 mEq/L. The reference range was not used to interpret this result as normal/abnormal . BE (test code = -3.2 See_Comment L [Automated [id number]) message] The sy stem which generated this result transmitted reference range : -3.0 - 3.0 mEq/ L. The reference r kyra was not used to interpret this result as normal/abnormal . THB (test code = 8.1 g/dL 13.5-18.0 LL 5782449449) %O2HB (test code = 91.0 % 94.0-99.0 L 6345194291) %COHB ART (test code = 0.3 % 0.0-1.5 0700823916) %METHB ART (test code = 0.3 % 0.4-1.5 L 2409810432) VOL%O2 ART (test code = 10.4 % 15.0-23.0 L 0708299629) NA (test code = 134 mmol/L 135-145 L 6325822839) K+ (test code = 4.7 mmol/L 3.5-5.0 1607878339) AC CA IONZ (test code = 4.40 mg/dL 4.50-5.30 L 4999405702) GLUCOSE (test code = 197 mg/dL 70-110 H 3472497798) LACTIC ACID (test code 3.31 mmol/L 0.50-2.20 H = 0344421528) Lab Interpretation Abnormal (test code = 70891-4) [facility] L[facility] Acid While intubated 2023-02-15 17:37:10 Test Item Value Reference Range Interpretation Comments PH (test code = 2) 7.47 7.35-7.45 H PCO2 (test code = 28 See_Comment L [Automate d 6347519974) message] The sy stem which generated this result transmitted reference range : 35 - 45 mmHg. The reference range was not used to interpret this result as normal/abnormal . PO2 (test code = 62 See_Comment L [Automated 2871218192) message] The sy stem which generated this result transmitted reference range : 80 - 100 mmHg. The reference range was not used to interpret this result as normal/abnormal . HCO3 (test code = 20 See_Comment L [Automate d 9494513289) message] The sy stem which generated this result transmitted reference range : 22 - 26 mEq/L. The reference range was not used to interpret this result as normal/abnormal . BE (test code = -3.2 See_Comment L [Automated 3459926627) message] The sy stem which generated this result transmitted reference range : -3.0 - 3.0 mEq/ L. The reference r kyra was not used to interpret this result as normal/abnormal . THB (test code = 8.1 g/dL 13.5-18.0 LL 3360565420) %O2HB (test code = 91.0 % 94.0-99.0 L 4631603244) %COHB ART (test code = 0.3 % 0.0-1.5 2314026230) %METHB ART (test code = 0.3 % 0.4-1.5 L 1124450185) VOL%O2 ART (test code = 10.4 % 15.0-23.0 L 6063319491) NA (test code = 134 mmol/L 135-145 L 5235942397) K+ (test code = 4.7 mmol/L 3.5-5.0 0670015292) AC CA IONZ (test code = 4.40 mg/dL 4.50-5.30 L 0526614388) GLUCOSE (test code = 197 mg/dL 70-110 H 6828706753) LACTIC ACID (test code 3.31 mmol/L 0.50-2.20 H = 8651203832) Lab Interpretation Abnormal (test code = 35600-3) [facility] GLUCOSE (AUTOMATED)2023-02-15 17:30:11 Test Item Value Reference Range Interpretation Comments POCT GLU (test code = 1888593720) 212 mg/dL 70-110 H Lab Interpretation (test code = Abnormal 26745-3) [facility] GLUCOSE (AUTOMATED)2023-02-15 17:30:11 Test Item Value Reference Range Interpretation Comments POCT GLU (test code = 4276622678) 212 mg/dL 70-110 H Lab Interpretation (test code = Abnormal 23528-1) [facility] Lactic Acid While intubated 2023-02-15 16:08:04 Test Item Value Reference Range Interpretation Comments PH (test code = 2) 7.45 7.35-7.45 PCO2 (test code = 30 See_Comment L [Automate d 1597528146) message] The sy stem which generated this result transmitted reference range : 35 - 45 mmHg. The reference range was not used to interpret this result as normal/abnormal . PO2 (test code = 63 See_Comment L [Automated 2249770418) message] The sy stem which generated this result transmitted reference range : 80 - 100 mmHg. The reference range was not used to interpret this result as normal/abnormal . HCO3 (test code = 21 See_Comment L [Automate d 8751927365) message] The sy stem which generated this result transmitted reference range : 22 - 26 mEq/L. The reference range was not used to interpret this result as normal/abnormal . BE (test code = -2.6 See_Comment [Automated 3348936926) message] The sy stem which generated this result transmitted reference range : -3.0 - 3.0 mEq/ L. The reference r kyra was not used to interpret this result as normal/abnormal . THB (test code = 10.9 g/dL 13.5-18.0 L 1806474915) %O2HB (test code = 92.4 % 94.0-99.0 L 6275590047) %COHB ART (test code = 0.1 % 0.0-1.5 0236708621) %METHB ART (test code = 0.1 % 0.4-1.5 L 7177390125) VOL%O2 ART (test code = 14.2 % 15.0-23.0 L 5291427802) NA (test code = 135 mmol/L 135-145 0288717313) K+ (test code = 4.7 mmol/L 3.5-5.0 6058657475) AC CA IONZ (test code = 4.50 mg/dL 4.50-5.30 9272832418) GLUCOSE (test code = 193 mg/dL 70-110 H 9349757691) LACTIC ACID (test code 3.58 mmol/L 0.50-2.20 H = 0902297094) Lab Interpretation Abnormal (test code = 41052-8) [facility] Lactic Acid While intubated 2023-02-15 16:08:04 Test Item Value Reference Range Interpretation Comments PH (test code = 2) 7.45 7.35-7.45 PCO2 (test code = 30 See_Comment L [Automate d 2571604738) message] The sy stem which generated this result transmitted reference range : 35 - 45 mmHg. The reference range was not used to interpret this result as normal/abnormal . PO2 (test code = 63 See_Comment L [Automated 2275116610) message] The sy stem which generated this result transmitted reference range : 80 - 100 mmHg. The reference range was not used to interpret this result as normal/abnormal . HCO3 (test code = 21 See_Comment L [Automate d 7697512581) message] The sy stem which generated this result transmitted reference range : 22 - 26 mEq/L. The reference range was not used to interpret this result as normal/abnormal . BE (test code = -2.6 See_Comment [Automated 5758162038) message] The sy stem which generated this result transmitted reference range : -3.0 - 3.0 mEq/ L. The reference r kyra was not used to interpret this result as normal/abnormal . THB (test code = 10.9 g/dL 13.5-18.0 L 1580280219) %O2HB (test code = 92.4 % 94.0-99.0 L 8526406759) %COHB ART (test code = 0.1 % 0.0-1.5 4278495150) %METHB ART (test code = 0.1 % 0.4-1.5 L 7490067905) VOL%O2 ART (test code = 14.2 % 15.0-23.0 L 2004295809) NA (test code = 135 mmol/L 135-145 2205958658) K+ (test code = 4.7 mmol/L 3.5-5.0 6982286263) AC CA IONZ (test code = 4.50 mg/dL 4.50-5.30 9201482554) GLUCOSE (test code = 193 mg/dL 70-110 H 7960809715) LACTIC ACID (test code 3.58 mmol/L 0.50-2.20 H = 8686950905) Lab Interpretation Abnormal (test code = 05360-6) [facility] GLUCOSE (AUTOMATED)2023-02-15 15:46:27 Test Item Value Reference Range Interpretation Comments POCT GLU (test code = 4947571158) 203 mg/dL 70-110 H Lab Interpretation (test code = Abnormal 76431-9) [facility] GLUCOSE (AUTOMATED)2023-02-15 15:46:27 Test Item Value Reference Range Interpretation Comments POCT GLU (test code = 0457003418) 203 mg/dL 70-110 H Lab Interpretation (test code = Abnormal 93911-2) [facility] + Lactic Uopg0019-30-21 13:25:06 Test Item Value Reference Range Interpretation Comments PH (test code = 2) 7.45 7.35-7.45 PCO2 (test code = 33 See_Comment L [Automate d 1361086708) message] The sy stem which generated this result transmitted reference range : 35 - 45 mmHg. The reference range was not used to interpret this result as normal/abnormal . PO2 (test code = 111 See_Comment H [Automated 6497348175) message] The sy stem which generated this result transmitted reference range : 80 - 100 mmHg. The reference range was not used to interpret this result as normal/abnormal . HCO3 (test code = 22 See_Comment [Automate d 8885365524) message] The sy stem which generated this result transmitted reference range : 22 - 26 mEq/L. The reference range was not used to interpret this result as normal/abnormal . BE (test code = -1.3 See_Comment [Automated 8197607932) message] The sy stem which generated this result transmitted reference range : -3.0 - 3.0 mEq/ L. The reference r kyra was not used to interpret this result as normal/abnormal . THB (test code = 9.5 g/dL 13.5-18.0 L 0100922416) %O2HB (test code = 97.3 % 94.0-99.0 6927719566) %COHB ART (test code = 0.3 % 0.0-1.5 2346045780) %METHB ART (test code = 0.1 % 0.4-1.5 L 9629117247) VOL%O2 ART (test code = 13.2 % 15.0-23.0 L 9724155534) NA (test code = 134 mmol/L 135-145 L 4391001805) K+ (test code = 4.5 mmol/L 3.5-5.0 2619644929) AC CA IONZ (test code = 4.60 mg/dL 4.50-5.30 5540760383) GLUCOSE (test code = 153 mg/dL 70-110 H 7037688801) LACTIC ACID (test code 2.74 mmol/L 0.50-2.20 H = 5350439318) Lab Interpretation Abnormal (test code = 27214-6) [facility] Lactic Tkwz7013-26-07 13:25:06 Test Item Value Reference Range Interpretation Comments PH (test code = 2) 7.45 7.35-7.45 PCO2 (test code = 33 See_Comment L [Automate d 7309502675) message] The sy stem which generated this result transmitted reference range : 35 - 45 mmHg. The reference range was not used to interpret this result as normal/abnormal . PO2 (test code = 111 See_Comment H [Automated 9665530270) message] The sy stem which generated this result transmitted reference range : 80 - 100 mmHg. The reference range was not used to interpret this result as normal/abnormal . HCO3 (test code = 22 See_Comment [Automate d 8556614565) message] The sy stem which generated this result transmitted reference range : 22 - 26 mEq/L. The reference range was not used to interpret this result as normal/abnormal . BE (test code = -1.3 See_Comment [Automated 2432382321) message] The sy stem which generated this result transmitted reference range : -3.0 - 3.0 mEq/ L. The reference r kyra was not used to interpret this result as normal/abnormal . THB (test code = 9.5 g/dL 13.5-18.0 L 9306049785) %O2HB (test code = 97.3 % 94.0-99.0 1337732635) %COHB ART (test code = 0.3 % 0.0-1.5 1179044769) %METHB ART (test code = 0.1 % 0.4-1.5 L 0644895780) VOL%O2 ART (test code = 13.2 % 15.0-23.0 L 1510664631) NA (test code = 134 mmol/L 135-145 L 9433021401) K+ (test code = 4.5 mmol/L 3.5-5.0 6019253209) AC CA IONZ (test code = 4.60 mg/dL 4.50-5.30 4894388521) GLUCOSE (test code = 153 mg/dL 70-110 H 1012293718) LACTIC ACID (test code 2.74 mmol/L 0.50-2.20 H = 7905221841) Lab Interpretation Abnormal (test code = 47025-8) [facility] GLUCOSE (AUTOMATED)2023-02-15 13:25:01 Test Item Value Reference Range Interpretation Comments POCT GLU (test code = 8375659333) 157 mg/dL 70-110 H Lab Interpretation (test code = Abnormal 76638-9) [facility] GLUCOSE (AUTOMATED)2023-02-15 13:25:01 Test Item Value Reference Range Interpretation Comments POCT GLU (test code = 8095201984) 157 mg/dL 70-110 H Lab Interpretation (test code = Abnormal 11808-8) [facility] GLUCOSE (AUTOMATED)2023-02-15 11:04:08 Test Item Value Reference Range Interpretation Comments POCT GLU (test code = 9334816683) 178 mg/dL 70-110 H Lab Interpretation (test code = Abnormal 55763-5) [facility] GLUCOSE (AUTOMATED)2023-02-15 11:04:08 Test Item Value Reference Range Interpretation Comments POCT GLU (test code = 4454650534) 178 mg/dL 70-110 H Lab Interpretation (test code = Abnormal 88038-4) [facility] GLUCOSE (AUTOMATED)2023-02-15 10:04:25 Test Item Value Reference Range Interpretation Comments POCT GLU (test code = 8425201533) 191 mg/dL 70-110 H Lab Interpretation (test code = Abnormal 87927-5) [facility] GLUCOSE (AUTOMATED)2023-02-15 10:04:25 Test Item Value Reference Range Interpretation Comments POCT GLU (test code = 9426752884) 191 mg/dL 70-110 H Lab Interpretation (test code = Abnormal 44198-1) [facility] L[facility] Acid While intubated 2023-02-15 09:27:31 Test Item Value Reference Range Interpretation Comments PH (test code = 2) 7.42 7.35-7.45 PCO2 (test code = 34 See_Comment L [Automate d 0218882324) message] The sy stem which generated this result transmitted reference range : 35 - 45 mmHg. The reference range was not used to interpret this result as normal/abnormal . PO2 (test code = 158 See_Comment H [Automated 6461277405) message] The sy stem which generated this result transmitted reference range : 80 - 100 mmHg. The reference range was not used to interpret this result as normal/abnormal . HCO3 (test code = 21 See_Comment L [Automate d 5989260375) message] The sy stem which generated this result transmitted reference range : 22 - 26 mEq/L. The reference range was not used to interpret this result as normal/abnormal . BE (test code = -2.5 See_Comment [Automated 9781545064) message] The sy stem which generated this result transmitted reference range : -3.0 - 3.0 mEq/ L. The reference r kyra was not used to interpret this result as normal/abnormal . THB (test code = 13.4 g/dL 13.5-18.0 L 9908500149) %O2HB (test code = 98.3 % 94.0-99.0 0331111022) %COHB ART (test code = 0.2 % 0.0-1.5 1288264294) %METHB ART (test code = 0.1 % 0.4-1.5 L 0939552501) VOL%O2 ART (test code = 18.8 % 15.0-23.0 9254237323) NA (test code = 136 mmol/L 135-145 1110380343) K+ (test code = 4.9 mmol/L 3.5-5.0 8488849558) AC CA IONZ (test code = 4.40 mg/dL 4.50-5.30 L 1269212111) GLUCOSE (test code = 171 mg/dL 70-110 H 9598715235) LACTIC ACID (test code 3.30 mmol/L 0.50-2.20 H = 2610178314) Lab Interpretation Abnormal (test code = 85432-3) [facility] L[facility] Acid While intubated 2023-02-15 09:27:31 Test Item Value Reference Range Interpretation Comments PH (test code = 2) 7.42 7.35-7.45 PCO2 (test code = 34 See_Comment L [Automate d 4251930029) message] The sy stem which generated this result transmitted reference range : 35 - 45 mmHg. The reference range was not used to interpret this result as normal/abnormal . PO2 (test code = 158 See_Comment H [Automated 6158778216) message] The sy stem which generated this result transmitted reference range : 80 - 100 mmHg. The reference range was not used to interpret this result as normal/abnormal . HCO3 (test code = 21 See_Comment L [Automate d 8733739161) message] The sy stem which generated this result transmitted reference range : 22 - 26 mEq/L. The reference range was not used to interpret this result as normal/abnormal . BE (test code = -2.5 See_Comment [Automated 7006208099) message] The sy stem which generated this result transmitted reference range : -3.0 - 3.0 mEq/ L. The reference r kyra was not used to interpret this result as normal/abnormal . THB (test code = 13.4 g/dL 13.5-18.0 L 3619830789) %O2HB (test code = 98.3 % 94.0-99.0 0384228060) %COHB ART (test code = 0.2 % 0.0-1.5 4522113305) %METHB ART (test code = 0.1 % 0.4-1.5 L 9568574934) VOL%O2 ART (test code = 18.8 % 15.0-23.0 9524004588) NA (test code = 136 mmol/L 135-145 0630756605) K+ (test code = 4.9 mmol/L 3.5-5.0 4130161394) AC CA IONZ (test code = 4.40 mg/dL 4.50-5.30 L 2432887431) GLUCOSE (test code = 171 mg/dL 70-110 H 0607922668) LACTIC ACID (test code 3.30 mmol/L 0.50-2.20 H = 3312707070) Lab Interpretation Abnormal (test code = 53588-6) [facility] GLUCOSE (AUTOMATED)2023-02-15 09:05:17 Test Item Value Reference Range Interpretation Comments POCT GLU (test code = 0570704223) 189 mg/dL 70-110 H Lab Interpretation (test code = Abnormal 92597-3) [facility] GLUCOSE (AUTOMATED)2023-02-15 09:05:17 Test Item Value Reference Range Interpretation Comments POCT GLU (test code = 2328930699) 189 mg/dL 70-110 H Lab Interpretation (test code = Abnormal 74492-4) [facility] GLUCOSE (AUTOMATED)2023-02-15 08:15:29 Test Item Value Reference Range Interpretation Comments POCT GLU (test code = 4708665654) 183 mg/dL 70-110 H Lab Interpretation (test code = Abnormal 83700-0) [facility] GLUCOSE (AUTOMATED)2023-02-15 08:15:29 Test Item Value Reference Range Interpretation Comments POCT GLU (test code = 0380829492) 183 mg/dL 70-110 H Lab Interpretation (test code = Abnormal 72594-8) [facility] GLUCOSE (AUTOMATED)2023-02-15 07:01:57 Test Item Value Reference Range Interpretation Comments POCT GLU (test code = 5565065179) 180 mg/dL 70-110 H Lab Interpretation (test code = Abnormal 16600-0) [facility] GLUCOSE (AUTOMATED)2023-02-15 07:01:57 Test Item Value Reference Range Interpretation Comments POCT GLU (test code = 6153385542) 180 mg/dL 70-110 H Lab Interpretation (test code = Abnormal 50985-7) [facility] GLUCOSE (AUTOMATED)2023-02-15 06:10:59 Test Item Value Reference Range Interpretation Comments POCT GLU (test code = 3111493870) 176 mg/dL 70-110 H Lab Interpretation (test code = Abnormal 37266-1) [facility] GLUCOSE (AUTOMATED)2023-02-15 06:10:59 Test Item Value Reference Range Interpretation Comments POCT GLU (test code = 7783613216) 176 mg/dL 70-110 H Lab Interpretation (test code = Abnormal 29123-0) [facility] GLUCOSE (AUTOMATED)2023-02-15 06:08:16 Test Item Value Reference Range Interpretation Comments POCT GLU (test code = 8879425702) 174 mg/dL 70-110 H Lab Interpretation (test code = Abnormal 79578-9) [facility] GLUCOSE (AUTOMATED)2023-02-15 06:08:16 Test Item Value Reference Range Interpretation Comments POCT GLU (test code = 4312745700) 182 mg/dL 70-110 H Lab Interpretation (test code = Abnormal 52736-5) [facility] GLUCOSE (AUTOMATED)2023-02-15 06:08:16 Test Item Value Reference Range Interpretation Comments POCT GLU (test code = 8675755562) 174 mg/dL 70-110 H Lab Interpretation (test code = Abnormal 28859-3) [facility] GLUCOSE (AUTOMATED)2023-02-15 06:08:16 Test Item Value Reference Range Interpretation Comments POCT GLU (test code = 8647607434) 182 mg/dL 70-110 H Lab Interpretation (test code = Abnormal 82829-7) [facility] L[facility] Acid While intubated 2023-02-15 05:26:04 Test Item Value Reference Range Interpretation Comments PH (test code = 2) 7.44 7.35-7.45 PCO2 (test code = 28 See_Comment L [Automate d 9996814270) message] The sy stem which generated this result transmitted reference range : 35 - 45 mmHg. The reference range was not used to interpret this result as normal/abnormal . PO2 (test code = 82 See_Comment [Automated 3308702735) message] The sy stem which generated this result transmitted reference range : 80 - 100 mmHg. The reference range was not used to interpret this result as normal/abnormal . HCO3 (test code = 19 See_Comment L [Automate d 7567992996) message] The sy stem which generated this result transmitted reference range : 22 - 26 mEq/L. The reference range was not used to interpret this result as normal/abnormal . BE (test code = -4.3 See_Comment L [Automated 8631652953) message] The sy stem which generated this result transmitted reference range : -3.0 - 3.0 mEq/ L. The reference r kyra was not used to interpret this result as normal/abnormal . THB (test code = 11.6 g/dL 13.5-18.0 L 1404997768) %O2HB (test code = 95.5 % 94.0-99.0 5539075952) %COHB ART (test code = 0.0 % 0.0-1.5 7805971892) %METHB ART (test code = 0.1 % 0.4-1.5 L 1219090068) VOL%O2 ART (test code = 15.7 % 15.0-23.0 5473453727) NA (test code = 134 mmol/L 135-145 L 0293333611) K+ (test code = 5.1 mmol/L 3.5-5.0 H 8524331749) AC CA IONZ (test code = 4.50 mg/dL 4.50-5.30 7488092222) GLUCOSE (test code = 166 mg/dL 70-110 H 9406725830) LACTIC ACID (test code 3.38 mmol/L 0.50-2.20 H = 2026047649) Lab Interpretation Abnormal (test code = 46833-9) [facility] L[facility] While intubated 2023-02-15 05:26:04 Test Item Value Reference Range Interpretation Comments PH (test code = 2) 7.44 7.35-7.45 PCO2 (test code = 28 See_Comment L [Automate d 2490585396) message] The sy stem which generated this result transmitted reference range : 35 - 45 mmHg. The reference range was not used to interpret this result as normal/abnormal . PO2 (test code = 82 See_Comment [Automated 5041746628) message] The sy stem which generated this result transmitted reference range : 80 - 100 mmHg. The reference range was not used to interpret this result as normal/abnormal . HCO3 (test code = 19 See_Comment L [Automate d 2367971416) message] The sy stem which generated this result transmitted reference range : 22 - 26 mEq/L. The reference range was not used to interpret this result as normal/abnormal . BE (test code = -4.3 See_Comment L [Automated 2570125712) message] The sy stem which generated this result transmitted reference range : -3.0 - 3.0 mEq/ L. The reference r kyra was not used to interpret this result as normal/abnormal . THB (test code = 11.6 g/dL 13.5-18.0 L 1097399295) %O2HB (test code = 95.5 % 94.0-99.0 5117440215) %COHB ART (test code = 0.0 % 0.0-1.5 8468743596) %METHB ART (test code = 0.1 % 0.4-1.5 L 3542870092) VOL%O2 ART (test code = 15.7 % 15.0-23.0 8987880274) NA (test code = 134 mmol/L 135-145 L 1607004716) K+ (test code = 5.1 mmol/L 3.5-5.0 H 6430810307) AC CA IONZ (test code = 4.50 mg/dL 4.50-5.30 4649587238) GLUCOSE (test code = 166 mg/dL 70-110 H 4314673297) LACTIC ACID (test code 3.38 mmol/L 0.50-2.20 H = 4973078445) Lab Interpretation Abnormal (test code = 93116-8) [facility] GLUCOSE (AUTOMATED)2023-02-15 03:12:50 Test Item Value Reference Range Interpretation Comments POCT GLU (test code = 3189343276) 175 mg/dL 70-110 H Lab Interpretation (test code = Abnormal 88689-4) [facility] GLUCOSE (AUTOMATED)2023-02-15 03:12:50 Test Item Value Reference Range Interpretation Comments POCT GLU (test code = 4220607880) 175 mg/dL 70-110 H Lab Interpretation (test code = Abnormal 28927-9) [facility] GLUCOSE (AUTOMATED)2023-02-15 02:21:27 Test Item Value Reference Range Interpretation Comments POCT GLU (test code = 4455694819) 176 mg/dL 70-110 H Lab Interpretation (test code = Abnormal 43987-8) [facility] GLUCOSE (AUTOMATED)2023-02-15 02:21:27 Test Item Value Reference Range Interpretation Comments POCT GLU (test code = 4155051035) 176 mg/dL 70-110 H Lab Interpretation (test code = Abnormal 60146-6) [facility] Lactic Vujd2231-83-66 01:32:32 Test Item Value Reference Range Interpretation Comments PH (test code = 2) 7.41 7.35-7.45 PCO2 (test code = 34 See_Comment L [Automate d 3133189741) message] The sy stem which generated this result transmitted reference range : 35 - 45 mmHg. The reference range was not used to interpret this result as normal/abnormal . PO2 (test code = 114 See_Comment H [Automated 4686992935) message] The sy stem which generated this result transmitted reference range : 80 - 100 mmHg. The reference range was not used to interpret this result as normal/abnormal . HCO3 (test code = 21 See_Comment L [Automate d 9779374999) message] The sy stem which generated this result transmitted reference range : 22 - 26 mEq/L. The reference range was not used to interpret this result as normal/abnormal . BE (test code = -3.2 See_Comment L [Automated 3537468867) message] The sy stem which generated this result transmitted reference range : -3.0 - 3.0 mEq/ L. The reference r kyra was not used to interpret this result as normal/abnormal . THB (test code = 9.5 g/dL 13.5-18.0 L 1858240605) %O2HB (test code = 97.1 % 94.0-99.0 4174050983) %COHB ART (test code = 0.3 % 0.0-1.5 4930320008) %METHB ART (test code = 0.2 % 0.4-1.5 L 7605278550) VOL%O2 ART (test code = 13.2 % 15.0-23.0 L 4325859591) NA (test code = 134 mmol/L 135-145 L 3082185968) K+ (test code = 4.9 mmol/L 3.5-5.0 3047469065) AC CA IONZ (test code = 4.50 mg/dL 4.50-5.30 7267275702) GLUCOSE (test code = 138 mg/dL 70-110 H 7224927192) LACTIC ACID (test code 4.24 mmol/L 0.50-2.20 H = 2463478039) Lab Interpretation Abnormal (test code = 48049-4) [facility] [id number] 01:32:32 Test Item Value Reference Range Interpretation Comments PH (test code = 2) 7.41 7.35-7.45 PCO2 (test code = 34 See_Comment L [Automate d 3232777323) message] The sy stem which generated this result transmitted reference range : 35 - 45 mmHg. The reference range was not used to interpret this result as normal/abnormal . PO2 (test code = 114 See_Comment H [Automated 5152903560) message] The sy stem which generated this result transmitted reference range : 80 - 100 mmHg. The reference range was not used to interpret this result as normal/abnormal . HCO3 (test code = 21 See_Comment L [Automate d 1985594395) message] The sy stem which generated this result transmitted reference range : 22 - 26 mEq/L. The reference range was not used to interpret this result as normal/abnormal . BE (test code = -3.2 See_Comment L [Automated 5368082526) message] The sy stem which generated this result transmitted reference range : -3.0 - 3.0 mEq/ L. The reference r kyra was not used to interpret this result as normal/abnormal . THB (test code = 9.5 g/dL 13.5-18.0 L 8541824625) %O2HB (test code = 97.1 % 94.0-99.0 7301555103) %COHB ART (test code = 0.3 % 0.0-1.5 8118214967) %METHB ART (test code = 0.2 % 0.4-1.5 L 7069206152) VOL%O2 ART (test code = 13.2 % 15.0-23.0 L 6426277318) NA (test code = 134 mmol/L 135-145 L 2346450769) K+ (test code = 4.9 mmol/L 3.5-5.0 0676000672) AC CA IONZ (test code = 4.50 mg/dL 4.50-5.30 1044606995) GLUCOSE (test code = 138 mg/dL 70-110 H 5451311052) LACTIC ACID (test code 4.24 mmol/L 0.50-2.20 H = 5918231671) Lab Interpretation Abnormal (test code = 63715-8) [facility] GLUCOSE (AUTOMATED)2023-02-15 01:19:32 Test Item Value Reference Range Interpretation Comments POCT GLU (test code = 7419267170) 139 mg/dL 70-110 H Lab Interpretation (test code = Abnormal 43453-1) [facility] GLUCOSE (AUTOMATED)2023-02-15 01:19:32 Test Item Value Reference Range Interpretation Comments POCT GLU (test code = 3449509264) 139 mg/dL 70-110 H Lab Interpretation (test code = Abnormal 61571-3) [facility] GLUCOSE (AUTOMATED)2023-02-14 23:47:10 Test Item Value Reference Range Interpretation Comments POCT GLU (test code = 3846363917) 164 mg/dL 70-110 H Lab Interpretation (test code = Abnormal 55406-3) [facility] GLUCOSE (AUTOMATED)2023-02-14 23:47:10 Test Item Value Reference Range Interpretation Comments POCT GLU (test code = 4561975444) 164 mg/dL 70-110 H Lab Interpretation (test code = Abnormal 37195-7) [facility] GLUCOSE (AUTOMATED)2023-02-14 22:58:37 Test Item Value Reference Range Interpretation Comments POCT GLU (test code = 7012838394) 173 mg/dL 70-110 H Lab Interpretation (test code = Abnormal 31619-9) [facility] GLUCOSE (AUTOMATED)2023-02-14 22:58:37 Test Item Value Reference Range Interpretation Comments POCT GLU (test code = 5823574813) 173 mg/dL 70-110 H Lab Interpretation (test code = Abnormal 34310-1) [facility] L[facility] Acid While [facility]ubated 2023-02-14 22:08:21 Test Item Value Reference Range Interpretation Comments PH (test code = 2) 7.42 7.35-7.45 PCO2 (test code = 31 See_Comment L [Automate d 5913427887) message] The sy stem which generated this result transmitted reference range : 35 - 45 mmHg. The reference range was not used to interpret this result as normal/abnormal . PO2 (test code = 109 See_Comment H [Automated 9826271461) message] The sy stem which generated this result transmitted reference range : 80 - 100 mmHg. The reference range was not used to interpret this result as normal/abnormal . HCO3 (test code = 20 See_Comment L [Automate d 6494211511) message] The sy stem which generated this result transmitted reference range : 22 - 26 mEq/L. The reference range was not used to interpret this result as normal/abnormal . BE (test code = -4.3 See_Comment L [Automated 8852325964) message] The sy stem which generated this result transmitted reference range : -3.0 - 3.0 mEq/ L. The reference r kyra was not used to interpret this result as normal/abnormal . THB (test code = 8.9 g/dL 13.5-18.0 L 7666416440) %O2HB (test code = 96.8 % 94.0-99.0 0265763023) %COHB ART (test code = 0.3 % 0.0-1.5 2507903336) %METHB ART (test code = 0.2 % 0.4-1.5 L 2546276031) VOL%O2 ART (test code = 12.3 % 15.0-23.0 L 7579387246) NA (test code = 134 mmol/L 135-145 L 7616311827) K+ (test code = 5.2 mmol/L 3.5-5.0 H 9429886977) AC CA IONZ (test code = 4.60 mg/dL 4.50-5.30 7827629650) GLUCOSE (test code = 167 mg/dL 70-110 H 4517939285) LACTIC ACID (test code 4.33 mmol/L 0.50-2.20 H = 2982004323) Lab Interpretation Abnormal (test code = 78671-5) [facility] L[facility] While [facility]ubated 2023-02-14 22:08:21 Test Item Value Reference Range Interpretation Comments PH (test code = 2) 7.42 7.35-7.45 PCO2 (test code = 31 See_Comment L [Automate d 8364740789) message] The sy stem which generated this result transmitted reference range : 35 - 45 mmHg. The reference range was not used to interpret this result as normal/abnormal . PO2 (test code = 109 See_Comment H [Automated 0296366107) message] The sy stem which generated this result transmitted reference range : 80 - 100 mmHg. The reference range was not used to interpret this result as normal/abnormal . HCO3 (test code = 20 See_Comment L [Automate d 3709397287) message] The sy stem which generated this result transmitted reference range : 22 - 26 mEq/L. The reference range was not used to interpret this result as normal/abnormal . BE (test code = -4.3 See_Comment L [Automated 3283968043) message] The sy stem which generated this result transmitted reference range : -3.0 - 3.0 mEq/ L. The reference r kyra was not used to interpret this result as normal/abnormal . THB (test code = 8.9 g/dL 13.5-18.0 L 9603309460) %O2HB (test code = 96.8 % 94.0-99.0 4214888618) %COHB ART (test code = 0.3 % 0.0-1.5 4401922282) %METHB ART (test code = 0.2 % 0.4-1.5 L 9404027895) VOL%O2 ART (test code = 12.3 % 15.0-23.0 L 9122816462) NA (test code = 134 mmol/L 135-145 L 6333526824) K+ (test code = 5.2 mmol/L 3.5-5.0 H 5864355341) AC CA IONZ (test code = 4.60 mg/dL 4.50-5.30 0276376381) GLUCOSE (test code = 167 mg/dL 70-110 H 1788968658) LACTIC ACID (test code 4.33 mmol/L 0.50-2.20 H = 3061091194) Lab Interpretation Abnormal (test code = 25886-1) [facility]CA2+ (While Intubated) 2023-02-14 20:29:29 Test Item Value Reference Range Interpretation Comments PH (test code = 2) 7.45 7.35-7.45 PCO2 (test code = 30 See_Comment L [Automate d message] 4046745717) The system [employer] generated this result transmit che reference range : 35 - 45 mmHg. The reference range was not used to interpret this result as normal/abnormal . PO2 (test code = 82 See_Comment [Automated message] 3817655023) The system [employer] generated this result transmit che reference range : 80 - 100 mmHg. The reference range was not used to interpret this result as normal/abnormal . HCO3 (test code = 20 See_Comment L [Automate d message] 8488861575) The system [employer] generated this result transmit che reference range : 22 - 26 mEq/L. The reference range was not used to interpret this result as normal/abnormal . BE (test code = -3.3 See_Comment L [Automated message] 2532731164) The system [employer] generated this result transmit che reference range : -3.0 - 3.0 mEq/ L. The reference r kyra was not used to interpret this result as normal/abnormal . THB (test code = 8.8 g/dL 13.5-18.0 L 6588416470) %O2HB (test code = 95.4 % 94.0-99.0 2635473410) %COHB ART (test code = 0.3 % 0.0-1.5 1311660046) %METHB ART (test code = 0.1 % 0.4-1.5 L 6691494508) VOL%O2 ART (test code = 11.9 % 15.0-23.0 L 4728332728) NA (test code = 134 mmol/L 135-145 L 1658120585) K+ (test code = 5.3 mmol/L 3.5-5.0 H 1041041552) AC CA IONZ (test code = 4.30 mg/dL 4.50-5.30 L 0862832614) GLUCOSE (test code = 172 mg/dL 70-110 H 1547434205) Lab Interpretation Abnormal (test code = 63126-6) [facility]U+CA2+ (While Intubated) 2023-02-14 20:29:29 Test Item Value Reference Range Interpretation Comments PH (test code = 2) 7.45 7.35-7.45 PCO2 (test code = 30 See_Comment L [Automate d message] 2949890042) The system [employer] generated this result transmit che reference range : 35 - 45 mmHg. The reference range was not used to interpret this result as normal/abnormal . PO2 (test code = 82 See_Comment [Automated message] 4537317108) The system [employer] generated this result transmit che reference range : 80 - 100 mmHg. The reference range was not used to interpret this result as normal/abnormal . HCO3 (test code = 20 See_Comment L [Automate d message] 4006567252) The system [employer] generated this result transmit che reference range : 22 - 26 mEq/L. The reference range was not used to interpret this result as normal/abnormal . BE (test code = -3.3 See_Comment L [Automated message] 3913435707) The system [employer] generated this result transmit che reference range : -3.0 - 3.0 mEq/ L. The reference r kyra was not used to interpret this result as normal/abnormal . THB (test code = 8.8 g/dL 13.5-18.0 L 1822903611) %O2HB (test code = 95.4 % 94.0-99.0 3775734830) %COHB ART (test code = 0.3 % 0.0-1.5 8213657464) %METHB ART (test code = 0.1 % 0.4-1.5 L 9798860123) VOL%O2 ART (test code = 11.9 % 15.0-23.0 L 5318201991) NA (test code = 134 mmol/L 135-145 L 0483429152) K+ (test code = 5.3 mmol/L 3.5-5.0 H 6483817818) AC CA IONZ (test code = 4.30 mg/dL 4.50-5.30 L 6471016697) GLUCOSE (test code = 172 mg/dL 70-110 H 4898471040) Lab Interpretation Abnormal (test code = 09700-5) [facility]+CA2+ (While Intubated) 2023-02-14 20:29:29 Test Item Value Reference Range Interpretation Comments PH (test code = 2) 7.45 7.35-7.45 PCO2 (test code = 30 See_Comment L [Automate d message] 2262663190) The system [employer] generated this result transmit che reference range : 35 - 45 mmHg. The reference range was not used to interpret this result as normal/abnormal . PO2 (test code = 82 See_Comment [Automated message] 1144813784) The system [employer] generated this result transmit che reference range : 80 - 100 mmHg. The reference range was not used to interpret this result as normal/abnormal . HCO3 (test code = 20 See_Comment L [Automate d message] 2878359184) The system [employer] generated this result transmit che reference range : 22 - 26 mEq/L. The reference range was not used to interpret this result as normal/abnormal . BE (test code = -3.3 See_Comment L [Automated message] 4932933929) The system [employer] generated this result transmit che reference range : -3.0 - 3.0 mEq/ L. The reference r kyra was not used to interpret this result as normal/abnormal . THB (test code = 8.8 g/dL 13.5-18.0 L 7416463831) %O2HB (test code = 95.4 % 94.0-99.0 6666053240) %COHB ART (test code = 0.3 % 0.0-1.5 4093258479) %METHB ART (test code = 0.1 % 0.4-1.5 L 0707520467) VOL%O2 ART (test code = 11.9 % 15.0-23.0 L 9014832980) NA (test code = 134 mmol/L 135-145 L 5064736910) K+ (test code = 5.3 mmol/L 3.5-5.0 H 4953331681) AC CA IONZ (test code = 4.30 mg/dL 4.50-5.30 L 8890732243) GLUCOSE (test code = 172 mg/dL 70-110 H 1694299643) Lab Interpretation Abnormal (test code = 98948-2) [facility] [id number] 18:50:39 Test Item Value Reference Range Interpretation Comments WBC (test code = 17.07 See_Comment H [Automated message] 6690-2) The system [employer] generated this result transmitted ref erence range: 4.20 - 1 0.70 10*3/?L. The reference range was not used to int erpret this result as normal/abnormal . RBC (test code = 789-8) 2.88 See_Comment L [Au tomated message] The system [employer] generated this result transmitted ref erence range: 4.26 - 5 .52 10*6/?L. The reference range was not used to int erpret this result as normal/abnormal . HGB (test code = 718-7) 8.8 g/dL 12.2-16.4 L HCT (test code = 25.3 % 38.4-49.3 L 4544-3) MCH (test code = 785-6) 30.6 pg 26.1-32.7 MCV (test code = 787-2) 87.8 fL 81.7-95.6 MCHC (test code = 34.8 g/dL 31.2-35.0 786-4) PLT (test code = 777-3) 78 See_Comment L [Au tomated message] The system [employer] generated this result transmitted ref erence range: 150 - 32 8 10*3/?L. The reference range was not used to int erpret this result as normal/abnormal . MPV (test code = 11.2 fL 9.8-13.0 58799-6) RDW-CV (test code = 14.5 % 12.1-15.4 788-0) RDW-SD (test code = 46.0 fL 38.5-51.6 22894-4) NRBC x10^3 (test code = 0.02 See_Comment [Au tomated message] 9381462854) The system [employer] generated this result transmitted ref erence range: 10*3/?L. The reference range was not used to int erpret this result as normal/abnormal . NRBC/100 WBC (test code 0.1 See_Comment [Au tomated message] = 3196481033) The system [employer] generated this result transmitted ref erence range: 0.0 - 10 .0 /100 WBCs. The reference range was not used to int erpret this result as normal/abnormal . IPF % (test code = 6.5 % 1.2-10.7 Platelet count 6108211009) measured by fluorescence me thod. Lab Interpretation Abnormal (test code = 77886-8) [facility] [id number] 18:50:39 Test Item Value Reference Range Interpretation Comments WBC (test code = 17.07 See_Comment H [Automated message] 6690-2) The system [employer] generated this result transmitted ref erence range: 4.20 - 1 0.70 10*3/?L. The reference range was not used to int erpret this result as normal/abnormal . RBC (test code = 789-8) 2.88 See_Comment L [Au tomated message] The system [employer] generated this result transmitted ref erence range: 4.26 - 5 .52 10*6/?L. The reference range was not used to int erpret this result as normal/abnormal . HGB (test code = 718-7) 8.8 g/dL 12.2-16.4 L HCT (test code = 25.3 % 38.4-49.3 L 4544-3) MCH (test code = 785-6) 30.6 pg 26.1-32.7 MCV (test code = 787-2) 87.8 fL 81.7-95.6 MCHC (test code = 34.8 g/dL 31.2-35.0 786-4) PLT (test code = 777-3) 78 See_Comment L [Au tomated message] The system [employer] generated this result transmitted ref erence range: 150 - 32 8 10*3/?L. The reference range was not used to int erpret this result as normal/abnormal . MPV (test code = 11.2 fL 9.8-13.0 69102-9) RDW-CV (test code = 14.5 % 12.1-15.4 788-0) RDW-SD (test code = 46.0 fL 38.5-51.6 72704-2) NRBC x10^3 (test code = 0.02 See_Comment [Au tomated message] 2704836703) The system [employer] generated this result transmitted ref erence range: 10*3/?L. The reference range was not used to int erpret this result as normal/abnormal . NRBC/100 WBC (test code 0.1 See_Comment [Au tomated message] = 0150623145) The system [employer] generated this result transmitted ref erence range: 0.0 - 10 .0 /100 WBCs. The reference range was not used to int erpret this result as normal/abnormal . IPF % (test code = 6.5 % 1.2-10.7 Platelet count 7294879351) measured by fluorescence me thod. Lab Interpretation Abnormal (test code = 15784-2) [facility] [id number] 18:50:39 Test Item Value Reference Range Interpretation Comments WBC (test code = 17.07 See_Comment H [Automated message] 6690-2) The system [employer] generated this result transmitted ref erence range: 4.20 - 1 0.70 10*3/?L. The reference range was not used to int erpret this result as normal/abnormal . RBC (test code = 789-8) 2.88 See_Comment L [Au tomated message] The system [employer] generated this result transmitted ref erence range: 4.26 - 5 .52 10*6/?L. The reference range was not used to int erpret this result as normal/abnormal . HGB (test code = 718-7) 8.8 g/dL 12.2-16.4 L HCT (test code = 25.3 % 38.4-49.3 L 4544-3) MCH (test code = 785-6) 30.6 pg 26.1-32.7 MCV (test code = 787-2) 87.8 fL 81.7-95.6 MCHC (test code = 34.8 g/dL 31.2-35.0 786-4) PLT (test code = 777-3) 78 See_Comment L [Au tomated message] The system [employer] generated this result transmitted ref erence range: 150 - 32 8 10*3/?L. The reference range was not used to int erpret this result as normal/abnormal . MPV (test code = 11.2 fL 9.8-13.0 34654-6) RDW-CV (test code = 14.5 % 12.1-15.4 788-0) RDW-SD (test code = 46.0 fL 38.5-51.6 23358-1) NRBC x10^3 (test code = 0.02 See_Comment [Au tomated message] 3590698899) The system [facility] generated this result transmitted ref erence range: 10*3/?L. The reference range was not used to int erpret this result as normal/abnormal . NRBC/100 WBC (test code 0.1 See_Comment [Au tomated message] = 5548404436) The system [facility] generated this result transmitted ref erence range: 0.0 - 10 .0 /100 WBCs. The reference range was not used to int erpret this result as normal/abnormal . IPF % (test code = 6.5 % 1.2-10.7 Platelet count 9722696611) measured by fluorescence me thod. Lab Interpretation Abnormal (test code = 98831-1) [facility] 18:11:55 Test Item Value Reference Range Interpretation Comments POCT GLU (test code = 5234748061) 130 mg/dL 70-110 H Lab Interpretation (test code = Abnormal 10588-2) [facility] GLUCOSE (AUTOMATED)2023-02-14 18:11:55 Test Item Value Reference Range Interpretation Comments POCT GLU (test code = 6506190750) 130 mg/dL 70-110 H Lab Interpretation (test code = Abnormal 98686-9) [facility] GLUCOSE (AUTOMATED)2023-02-14 18:11:55 Test Item Value Reference Range Interpretation Comments POCT GLU (test code = 9478390590) 130 mg/dL 70-110 H Lab Interpretation (test code = Abnormal 66866-6) [facility] Lactic Acid While intubated 2023-02-14 17:18:26 Test Item Value Reference Range Interpretation Comments PH (test code = 2) 7.37 7.35-7.45 PCO2 (test code = 34 See_Comment L [Automate d 0175311574) message] The sy stem which generated this result transmitted reference range : 35 - 45 mmHg. The reference range was not used to interpret this result as normal/abnormal . PO2 (test code = 73 See_Comment L [Automated 0124701898) message] The sy stem which generated this result transmitted reference range : 80 - 100 mmHg. The reference range was not used to interpret this result as normal/abnormal . HCO3 (test code = 19 See_Comment L [Automate d 4981617185) message] The sy stem which generated this result transmitted reference range : 22 - 26 mEq/L. The reference range was not used to interpret this result as normal/abnormal . BE (test code = -5.3 See_Comment L [Automated 0969037858) message] The sy stem which generated this result transmitted reference range : -3.0 - 3.0 mEq/ L. The reference r kyra was not used to interpret this result as normal/abnormal . THB (test code = 9.1 g/dL 13.5-18.0 L 5493031457) %O2HB (test code = 93.6 % 94.0-99.0 L 0599530724) %COHB ART (test code = 0.3 % 0.0-1.5 3861041233) %METHB ART (test code = 0.5 % 0.4-1.5 9748382178) VOL%O2 ART (test code = 12.1 % 15.0-23.0 L 7639745621) NA (test code = 135 mmol/L 135-145 9189462836) K+ (test code = 4.5 mmol/L 3.5-5.0 8624554963) AC CA IONZ (test code = 4.50 mg/dL 4.50-5.30 1432866359) GLUCOSE (test code = 120 mg/dL 70-110 H 7429362090) LACTIC ACID (test code 3.87 mmol/L 0.50-2.20 H = 0685711619) Lab Interpretation Abnormal (test code = 30823-3) [facility] L[facility] While intubated 2023-02-14 17:18:26 Test Item Value Reference Range Interpretation Comments PH (test code = 2) 7.37 7.35-7.45 PCO2 (test code = 34 See_Comment L [Automate d 1942735305) message] The sy stem which generated this result transmitted reference range : 35 - 45 mmHg. The reference range was not used to interpret this result as normal/abnormal . PO2 (test code = 73 See_Comment L [Automated 8326505928) message] The sy stem which generated this result transmitted reference range : 80 - 100 mmHg. The reference range was not used to interpret this result as normal/abnormal . HCO3 (test code = 19 See_Comment L [Automate d 7758822635) message] The sy stem which generated this result transmitted reference range : 22 - 26 mEq/L. The reference range was not used to interpret this result as normal/abnormal . BE (test code = -5.3 See_Comment L [Automated 5997803844) message] The sy stem which generated this result transmitted reference range : -3.0 - 3.0 mEq/ L. The reference r kyra was not used to interpret this result as normal/abnormal . THB (test code = 9.1 g/dL 13.5-18.0 L 5396854859) %O2HB (test code = 93.6 % 94.0-99.0 L 0409814176) %COHB ART (test code = 0.3 % 0.0-1.5 6910132175) %METHB ART (test code = 0.5 % 0.4-1.5 3530655877) VOL%O2 ART (test code = 12.1 % 15.0-23.0 L 4463410696) NA (test code = 135 mmol/L 135-145 0938479753) K+ (test code = 4.5 mmol/L 3.5-5.0 8599038766) AC CA IONZ (test code = 4.50 mg/dL 4.50-5.30 1266295264) GLUCOSE (test code = 120 mg/dL 70-110 H 9194101520) LACTIC ACID (test code 3.87 mmol/L 0.50-2.20 H = 1731428078) Lab Interpretation Abnormal (test code = 61728-9) [facility] L[facility] While intubated 2023-02-14 17:18:26 Test Item Value Reference Range Interpretation Comments PH (test code = 2) 7.37 7.35-7.45 PCO2 (test code = 34 See_Comment L [Automate d 8104116734) message] The sy stem which generated this result transmitted reference range : 35 - 45 mmHg. The reference range was not used to interpret this result as normal/abnormal . PO2 (test code = 73 See_Comment L [Automated 7068464241) message] The sy stem which generated this result transmitted reference range : 80 - 100 mmHg. The reference range was not used to interpret this result as normal/abnormal . HCO3 (test code = 19 See_Comment L [Automate d 3397824579) message] The sy stem which generated this result transmitted reference range : 22 - 26 mEq/L. The reference range was not used to interpret this result as normal/abnormal . BE (test code = -5.3 See_Comment L [Automated 3220887366) message] The sy stem which generated this result transmitted reference range : -3.0 - 3.0 mEq/ L. The reference r kyra was not used to interpret this result as normal/abnormal . THB (test code = 9.1 g/dL 13.5-18.0 L 9999354319) %O2HB (test code = 93.6 % 94.0-99.0 L 4186963855) %COHB ART (test code = 0.3 % 0.0-1.5 7553462226) %METHB ART (test code = 0.5 % 0.4-1.5 8486588996) VOL%O2 ART (test code = 12.1 % 15.0-23.0 L 7868602040) NA (test code = 135 mmol/L 135-145 6172903869) K+ (test code = 4.5 mmol/L 3.5-5.0 5858218832) AC CA IONZ (test code = 4.50 mg/dL 4.50-5.30 9167493671) GLUCOSE (test code = 120 mg/dL 70-110 H 9796068246) LACTIC ACID (test code 3.87 mmol/L 0.50-2.20 H = 5141150449) Lab Interpretation Abnormal (test code = 73528-8) [facility] GLUCOSE (AUTOMATED)2023-02-14 16:06:27 Test Item Value Reference Range Interpretation Comments POCT GLU (test code = 5207093084) 155 mg/dL 70-110 H Lab Interpretation (test code = Abnormal 04422-6) [facility] GLUCOSE (AUTOMATED)2023-02-14 16:06:27 Test Item Value Reference Range Interpretation Comments POCT GLU (test code = 6162729002) 155 mg/dL 70-110 H Lab Interpretation (test code = Abnormal 62747-2) [facility] GLUCOSE (AUTOMATED)2023-02-14 16:06:27 Test Item Value Reference Range Interpretation Comments POCT GLU (test code = 2961164792) 155 mg/dL 70-110 H Lab Interpretation (test code = Abnormal 24375-0) [facility] GLUCOSE (AUTOMATED)2023-02-14 15:15:33 Test Item Value Reference Range Interpretation Comments POCT GLU (test code = 3654246519) 170 mg/dL 70-110 H Lab Interpretation (test code = Abnormal 11757-1) [facility] GLUCOSE (AUTOMATED)2023-02-14 15:15:33 Test Item Value Reference Range Interpretation Comments POCT GLU (test code = 8379005119) 170 mg/dL 70-110 H Lab Interpretation (test code = Abnormal 23310-7) [facility] GLUCOSE (AUTOMATED)2023-02-14 15:15:33 Test Item Value Reference Range Interpretation Comments POCT GLU (test code = 3724369451) 170 mg/dL 70-110 H Lab Interpretation (test code = Abnormal 86824-1) [facility] 1 Units 2023-02-14 15:11:20 Test Item Value Reference Range Interpretation Comments Cross Match Result Compatible (test code = 4409) ISBT Blood Type Code 5100 (test code = 022846) Unit Blood Type (test O Pos code = 4410) Unit Number (test [id number] code = 4411) Blood Expiration Date & Time (test code = 745465) Status Information Issued (test code = 4412) Product Red Blood Cells Identification (test code = 4413) Product Code (test [id number] Performed at [facility] code = 4414) Laboratory Services [facility] Blood [address] [address]Kimk Free: [phone] A No. [id number] [facility] Packed RBC (in units), 1 Units 2023-02-14 15:11:20 Test Item Value Reference Range Interpretation Comments Cross Match Result Compatible (test code = 4409) ISBT Blood Type Code 5100 (test code = 326282) Unit Blood Type (test O Pos code = 4410) Unit Number (test [id number] code = 4411) Blood Expiration Date & Time (test code = 635649) Status Information Issued (test code = 4412) Product Red Blood Cells Identification (test code = 4413) Product Code (test [id number] Performed at [facility] code = 4414) Laboratory Services - [facility] Blood [address] s [address]Hhtb Free: [phone] A No. [id number] [facility] (in units), 1 Units 2023-02-14 15:11:20 Test Item Value Reference Range Interpretation Comments Cross Match Result Compatible (test code = 4409) ISBT Blood Type Code 5100 (test code = 931055) Unit Blood Type (test O Pos code = 4410) Unit Number (test [id number] code = 4411) Blood Expiration Date & Time (test code = 657228) Status Information Issued (test code = 4412) Product Red Blood Cells Identification (test code = 4413) Product Code (test X5450D15 Performed at [facility] code = 4414) Laboratory Services [facility] Blood [address] [address]Uvdv Free: [phone] A No. [id number] [facility] Packed RBC (in units), 1 Units 2023-02-14 15:11:20 Test Item Value Reference Range Interpretation Comments Cross Match Result Compatible (test code = 4409) ISBT Blood Type Code 5100 (test code = 715386) Unit Blood Type (test O Pos code = 4410) Unit Number (test [id number] code = 4411) Blood Expiration Date & Time (test code = 120803) Status Information Issued (test code = 4412) Product Red Blood Cells Identification (test code = 4413) Product Code (test Z5510Q07 Performed at [facility] code = 4414) Laboratory Services - [address] [address]Flyb Free: [phone] A No. [id number] [facility] Packed RBC (in units), 1 Units 2023-02-14 15:11:20 Test Item Value Reference Range Interpretation Comments Cross Match Result Compatible (test code = 4409) ISBT Blood Type Code 5100 (test code = 644695) Unit Blood Type (test O Pos code = 4410) Unit Number (test [id number] code = 4411) Blood Expiration Date & Time (test code = 584861) Status Information Issued (test code = 4412) Product Red Blood Cells Identification (test code = 4413) Product Code (test V6510T17 Performed at [facility] code = 4414) Laboratory Services [facility] Blood [address] [address]Gkmw Free: [phone] A No. [id number] [facility] (in units), 1 Units 2023-02-14 15:11:20 Test Item Value Reference Range Interpretation Comments Cross Match Result Compatible (test code = 4409) ISBT Blood Type Code 5100 (test code = 296742) Unit Blood Type (test O Pos code = 4410) Unit Number (test [id number] code = 4411) Blood Expiration Date & Time (test code = 832330) Status Information Issued (test code = 4412) Product Red Blood Cells Identification (test code = 4413) Product Code (test [id number] Performed at [facility] code = 4414) Laboratory Services - [facility] Blood [address] [place] [address]Rsyw Free: [phone] A No. [id number] [facility] + Lactic Ayme5781-04-58 14:25:20 Test Item Value Reference Range Interpretation Comments PH (test code = 2) 7.41 7.35-7.45 PCO2 (test code = 32 See_Comment L [Automate d 2188549528) message] The sy stem which generated this result transmitted reference range : 35 - 45 mmHg. The reference range was not used to interpret this result as normal/abnormal . PO2 (test code = 177 See_Comment H [Automated 9287067932) message] The sy stem which generated this result transmitted reference range : 80 - 100 mmHg. The reference range was not used to interpret this result as normal/abnormal . HCO3 (test code = 20 See_Comment L [Automate d 0293574573) message] The sy stem which generated this result transmitted reference range : 22 - 26 mEq/L. The reference range was not used to interpret this result as normal/abnormal . BE (test code = -4.6 See_Comment L [Automated 2333486107) message] The sy stem which generated this result transmitted reference range : -3.0 - 3.0 mEq/ L. The reference r kyra was not used to interpret this result as normal/abnormal . THB (test code = 6.1 g/dL 13.5-18.0 LL 8065345387) %O2HB (test code = 97.5 % 94.0-99.0 8184702045) %COHB ART (test code = 0.4 % 0.0-1.5 4032274239) %METHB ART (test code = 0.6 % 0.4-1.5 9458164739) VOL%O2 ART (test code = 8.8 % 15.0-23.0 L 7828692325) NA (test code = 135 mmol/L 135-145 9531493355) K+ (test code = 4.6 mmol/L 3.5-5.0 3400249548) AC CA IONZ (test code = 4.20 mg/dL 4.50-5.30 L 4908075122) GLUCOSE (test code = 166 mg/dL 70-110 H 7661031959) LACTIC ACID (test code 4.62 mmol/L 0.50-2.20 H = 2925809927) Lab Interpretation Abnormal (test code = 65119-2) [facility] + Lactic Agaw4014-93-66 14:25:20 Test Item Value Reference Range Interpretation Comments PH (test code = 2) 7.41 7.35-7.45 PCO2 (test code = 32 See_Comment L [Automate d 3803309610) message] The sy stem which generated this result transmitted reference range : 35 - 45 mmHg. The reference range was not used to interpret this result as normal/abnormal . PO2 (test code = 177 See_Comment H [Automated 9439267447) message] The sy stem which generated this result transmitted reference range : 80 - 100 mmHg. The reference range was not used to interpret this result as normal/abnormal . HCO3 (test code = 20 See_Comment L [Automate d 9487207030) message] The sy stem which generated this result transmitted reference range : 22 - 26 mEq/L. The reference range was not used to interpret this result as normal/abnormal . BE (test code = -4.6 See_Comment L [Automated 3501765786) message] The sy stem which generated this result transmitted reference range : -3.0 - 3.0 mEq/ L. The reference r kyra was not used to interpret this result as normal/abnormal . THB (test code = 6.1 g/dL 13.5-18.0 LL 6115959476) %O2HB (test code = 97.5 % 94.0-99.0 5691406207) %COHB ART (test code = 0.4 % 0.0-1.5 3726280948) %METHB ART (test code = 0.6 % 0.4-1.5 6333026196) VOL%O2 ART (test code = 8.8 % 15.0-23.0 L 8819032848) NA (test code = 135 mmol/L 135-145 7917708293) K+ (test code = 4.6 mmol/L 3.5-5.0 4881197709) AC CA IONZ (test code = 4.20 mg/dL 4.50-5.30 L 4344472695) GLUCOSE (test code = 166 mg/dL 70-110 H 2590422352) LACTIC ACID (test code 4.62 mmol/L 0.50-2.20 H = 6529929127) Lab Interpretation Abnormal (test code = 28155-0) [facility] + Lactic Tvff3062-01-97 14:25:20 Test Item Value Reference Range Interpretation Comments PH (test code = 2) 7.41 7.35-7.45 PCO2 (test code = 32 See_Comment L [Automate d 7156016816) message] The sy stem which generated this result transmitted reference range : 35 - 45 mmHg. The reference range was not used to interpret this result as normal/abnormal . PO2 (test code = 177 See_Comment H [Automated 6541798281) message] The sy stem which generated this result transmitted reference range : 80 - 100 mmHg. The reference range was not used to interpret this result as normal/abnormal . HCO3 (test code = 20 See_Comment L [Automate d 7385508505) message] The sy stem which generated this result transmitted reference range : 22 - 26 mEq/L. The reference range was not used to interpret this result as normal/abnormal . BE (test code = -4.6 See_Comment L [Automated 3400286324) message] The sy stem which generated this result transmitted reference range : -3.0 - 3.0 mEq/ L. The reference r kyra was not used to interpret this result as normal/abnormal . THB (test code = 6.1 g/dL 13.5-18.0 LL 4365368736) %O2HB (test code = 97.5 % 94.0-99.0 5531581168) %COHB ART (test code = 0.4 % 0.0-1.5 1107586526) %METHB ART (test code = 0.6 % 0.4-1.5 1073904482) VOL%O2 ART (test code = 8.8 % 15.0-23.0 L 1540722783) NA (test code = 135 mmol/L 135-145 9097726093) K+ (test code = 4.6 mmol/L 3.5-5.0 3150219137) AC CA IONZ (test code = 4.20 mg/dL 4.50-5.30 L 5391990833) GLUCOSE (test code = 166 mg/dL 70-110 H 0090949793) LACTIC ACID (test code 4.62 mmol/L 0.50-2.20 H = 1834791259) Lab Interpretation Abnormal (test code = 56053-2) [facility] GLUCOSE (AUTOMATED)2023-02-14 14:24:29 Test Item Value Reference Range Interpretation Comments POCT GLU (test code = 4608362634) 197 mg/dL 70-110 H Lab Interpretation (test code = Abnormal 72784-4) [facility] GLUCOSE (AUTOMATED)2023-02-14 14:24:29 Test Item Value Reference Range Interpretation Comments POCT GLU (test code = 3101040107) 197 mg/dL 70-110 H Lab Interpretation (test code = Abnormal 34302-0) [facility] GLUCOSE (AUTOMATED)2023-02-14 14:24:29 Test Item Value Reference Range Interpretation Comments POCT GLU (test code = 1914518302) 197 mg/dL 70-110 H Lab Interpretation (test code = Abnormal 49247-8) [facility]+K+GLU+CA2+ (While Intubated) 2023-02-14 12:59:59 Test Item Value Reference Range Interpretation Comments PH (test code = 2) 7.35 7.35-7.45 PCO2 (test code = 36 See_Comment [Automate d message] 9493507147) The system [employer] generated this result transmit che reference range : 35 - 45 mmHg. The reference range was not used to interpret this result as normal/abnormal . PO2 (test code = 101 See_Comment H [Automated message] 5177373490) The system [employer] generated this result transmit che reference range : 80 - 100 mmHg. The reference range was not used to interpret this result as normal/abnormal . HCO3 (test code = 19 See_Comment L [Automate d message] 6322478189) The system [employer] generated this result transmit che reference range : 22 - 26 mEq/L. The reference range was not used to interpret this result as normal/abnormal . BE (test code = -5.7 See_Comment L [Automated message] 4426881866) The system [employer] generated this result transmit che reference range : -3.0 - 3.0 mEq/ L. The reference r kyra was not used to interpret this result as normal/abnormal . THB (test code = 7.4 g/dL 13.5-18.0 LL 6865311029) %O2HB (test code = 95.8 % 94.0-99.0 7527978443) %COHB ART (test code = 1.2 % 0.0-1.5 1375624355) %METHB ART (test code = 0.3 % 0.4-1.5 L 8072530614) VOL%O2 ART (test code = 10.2 % 15.0-23.0 L 2329967516) NA (test code = 134 mmol/L 135-145 L 6631632135) K+ (test code = 4.6 mmol/L 3.5-5.0 7656392435) AC CA IONZ (test code = 4.30 mg/dL 4.50-5.30 L 5907274327) GLUCOSE (test code = 214 mg/dL 70-110 H 4986972569) Lab Interpretation Abnormal (test code = 74997-2) [facility]U+CA2+ (While Intubated) 2023-02-14 12:59:59 Test Item Value Reference Range Interpretation Comments PH (test code = 2) 7.35 7.35-7.45 PCO2 (test code = 36 See_Comment [Automate d message] 3246098500) The system [employer] generated this result transmit che reference range : 35 - 45 mmHg. The reference range was not used to interpret this result as normal/abnormal . PO2 (test code = 101 See_Comment H [Automated message] 2810025619) The system [employer] generated this result transmit che reference range : 80 - 100 mmHg. The reference range was not used to interpret this result as normal/abnormal . HCO3 (test code = 19 See_Comment L [Automate d message] 3255758227) The system [employer] generated this result transmit che reference range : 22 - 26 mEq/L. The reference range was not used to interpret this result as normal/abnormal . BE (test code = -5.7 See_Comment L [Automated message] 7967228601) The system [employer] generated this result transmit che reference range : -3.0 - 3.0 mEq/ L. The reference r kyra was not used to interpret this result as normal/abnormal . THB (test code = 7.4 g/dL 13.5-18.0 LL 7141110826) %O2HB (test code = 95.8 % 94.0-99.0 1871610430) %COHB ART (test code = 1.2 % 0.0-1.5 1743102076) %METHB ART (test code = 0.3 % 0.4-1.5 L 1045279962) VOL%O2 ART (test code = 10.2 % 15.0-23.0 L 4619001013) NA (test code = 134 mmol/L 135-145 L 6929707860) K+ (test code = 4.6 mmol/L 3.5-5.0 0372351231) AC CA IONZ (test code = 4.30 mg/dL 4.50-5.30 L 5859997649) GLUCOSE (test code = 214 mg/dL 70-110 H 5616432596) Lab Interpretation Abnormal (test code = 75412-1) [facility]U+CA2+ (While Intubated) 2023-02-14 12:59:59 Test Item Value Reference Range Interpretation Comments PH (test code = 2) 7.35 7.35-7.45 PCO2 (test code = 36 See_Comment [Automate d message] 9351554969) The system [employer] generated this result transmit che reference range : 35 - 45 mmHg. The reference range was not used to interpret this result as normal/abnormal . PO2 (test code = 101 See_Comment H [Automated message] 0368727372) The system [employer] generated this result transmit che reference range : 80 - 100 mmHg. The reference range was not used to interpret this result as normal/abnormal . HCO3 (test code = 19 See_Comment L [Automate d message] 7734242254) The system [employer] generated this result transmit che reference range : 22 - 26 mEq/L. The reference range was not used to interpret this result as normal/abnormal . BE (test code = -5.7 See_Comment L [Automated message] 1493070071) The system [employer] generated this result transmit che reference range : -3.0 - 3.0 mEq/ L. The reference r kyra was not used to interpret this result as normal/abnormal . THB (test code = 7.4 g/dL 13.5-18.0 LL 0060913012) %O2HB (test code = 95.8 % 94.0-99.0 2995612124) %COHB ART (test code = 1.2 % 0.0-1.5 8759503895) %METHB ART (test code = 0.3 % 0.4-1.5 L 6374568495) VOL%O2 ART (test code = 10.2 % 15.0-23.0 L 0905834753) NA (test code = 134 mmol/L 135-145 L 1997205717) K+ (test code = 4.6 mmol/L 3.5-5.0 9251360100) AC CA IONZ (test code = 4.30 mg/dL 4.50-5.30 L 7089948261) GLUCOSE (test code = 214 mg/dL 70-110 H 3404915559) Lab Interpretation Abnormal (test code = 90086-8) [facility] GLUCOSE (AUTOMATED)2023-02-14 12:56:02 Test Item Value Reference Range Interpretation Comments POCT GLU (test code = 4609847614) 229 mg/dL 70-110 H Lab Interpretation (test code = Abnormal 37097-0) [facility] GLUCOSE (AUTOMATED)2023-02-14 12:56:02 Test Item Value Reference Range Interpretation Comments POCT GLU (test code = 5587009155) 229 mg/dL 70-110 H Lab Interpretation (test code = Abnormal 92988-2) [facility] GLUCOSE (AUTOMATED)2023-02-14 12:56:02 Test Item Value Reference Range Interpretation Comments POCT GLU (test code = 0199069033) 229 mg/dL 70-110 H Lab Interpretation (test code = Abnormal 11880-7) [facility] GLUCOSE (AUTOMATED)2023-02-14 11:06:23 Test Item Value Reference Range Interpretation Comments POCT GLU (test code = 5785171912) 254 mg/dL 70-110 H Lab Interpretation (test code = Abnormal 51893-9) [facility] GLUCOSE (AUTOMATED)2023-02-14 11:06:23 Test Item Value Reference Range Interpretation Comments POCT GLU (test code = 3479454843) 254 mg/dL 70-110 H Lab Interpretation (test code = Abnormal 42466-9) [facility] GLUCOSE (AUTOMATED)2023-02-14 11:06:23 Test Item Value Reference Range Interpretation Comments POCT GLU (test code = 6053910812) 254 mg/dL 70-110 H Lab Interpretation (test code = Abnormal 03075-5) [facility] + Lactic Olxl8806-40-52 10:15:45 Test Item Value Reference Range Interpretation Comments PH (test code = 2) 7.32 7.35-7.45 L PCO2 (test code = 32 See_Comment L [Automate d 4378215010) message] The sy stem which generated this result transmitted reference range : 35 - 45 mmHg. The reference range was not used to interpret this result as normal/abnormal . PO2 (test code = 59 See_Comment L [Automated 9124691850) message] The sy stem which generated this result transmitted reference range : 80 - 100 mmHg. The reference range was not used to interpret this result as normal/abnormal . HCO3 (test code = 16 See_Comment L [Automate d 6158358412) message] The sy stem which generated this result transmitted reference range : 22 - 26 mEq/L. The reference range was not used to interpret this result as normal/abnormal . BE (test code = -8.7 See_Comment L [Automated 6669222814) message] The sy stem which generated this result transmitted reference range : -3.0 - 3.0 mEq/ L. The reference r kyra was not used to interpret this result as normal/abnormal . THB (test code = 7.8 g/dL 13.5-18.0 LL 3578139676) %O2HB (test code = 88.6 % 94.0-99.0 L 1995083077) %COHB ART (test code = 0.9 % 0.0-1.5 0156235925) %METHB ART (test code = 0.5 % 0.4-1.5 0821782261) VOL%O2 ART (test code = 9.8 % 15.0-23.0 L 0047650989) NA (test code = 133 mmol/L 135-145 L 2371301470) K+ (test code = 4.5 mmol/L 3.5-5.0 3759531289) AC CA IONZ (test code = 4.50 mg/dL 4.50-5.30 8134397131) GLUCOSE (test code = 239 mg/dL 70-110 H 5919324593) LACTIC ACID (test code 5.93 mmol/L 0.50-2.20 H = 3779027805) Lab Interpretation Abnormal (test code = 01908-5) [facility] + Lactic Ldan8607-21-61 10:15:45 Test Item Value Reference Range Interpretation Comments PH (test code = 2) 7.32 7.35-7.45 L PCO2 (test code = 32 See_Comment L [Automate d 0744235558) message] The sy stem which generated this result transmitted reference range : 35 - 45 mmHg. The reference range was not used to interpret this result as normal/abnormal . PO2 (test code = 59 See_Comment L [Automated 8633981040) message] The sy stem which generated this result transmitted reference range : 80 - 100 mmHg. The reference range was not used to interpret this result as normal/abnormal . HCO3 (test code = 16 See_Comment L [Automate d 0459580714) message] The sy stem which generated this result transmitted reference range : 22 - 26 mEq/L. The reference range was not used to interpret this result as normal/abnormal . BE (test code = -8.7 See_Comment L [Automated 5635174168) message] The sy stem which generated this result transmitted reference range : -3.0 - 3.0 mEq/ L. The reference r kyra was not used to interpret this result as normal/abnormal . THB (test code = 7.8 g/dL 13.5-18.0 LL 7337355640) %O2HB (test code = 88.6 % 94.0-99.0 L 5620698475) %COHB ART (test code = 0.9 % 0.0-1.5 2762864413) %METHB ART (test code = 0.5 % 0.4-1.5 4085999883) VOL%O2 ART (test code = 9.8 % 15.0-23.0 L 1827125249) NA (test code = 133 mmol/L 135-145 L 6348766229) K+ (test code = 4.5 mmol/L 3.5-5.0 8256542475) AC CA IONZ (test code = 4.50 mg/dL 4.50-5.30 5595954908) GLUCOSE (test code = 239 mg/dL 70-110 H 0366586475) LACTIC ACID (test code 5.93 mmol/L 0.50-2.20 H = 6941359295) Lab Interpretation Abnormal (test code = 03927-3) [facility] + Lactic Kleq4997-09-08 10:15:45 Test Item Value Reference Range Interpretation Comments PH (test code = 2) 7.32 7.35-7.45 L PCO2 (test code = 32 See_Comment L [Automate d 1625236713) message] The sy stem which generated this result transmitted reference range : 35 - 45 mmHg. The reference range was not used to interpret this result as normal/abnormal . PO2 (test code = 59 See_Comment L [Automated 2119873313) message] The sy stem which generated this result transmitted reference range : 80 - 100 mmHg. The reference range was not used to interpret this result as normal/abnormal . HCO3 (test code = 16 See_Comment L [Automate d 8204307588) message] The sy stem which generated this result transmitted reference range : 22 - 26 mEq/L. The reference range was not used to interpret this result as normal/abnormal . BE (test code = -8.7 See_Comment L [Automated 2932757696) message] The sy stem which generated this result transmitted reference range : -3.0 - 3.0 mEq/ L. The reference r kyra was not used to interpret this result as normal/abnormal . THB (test code = 7.8 g/dL 13.5-18.0 LL 0537585835) %O2HB (test code = 88.6 % 94.0-99.0 L 2635304154) %COHB ART (test code = 0.9 % 0.0-1.5 2348078854) %METHB ART (test code = 0.5 % 0.4-1.5 8903143433) VOL%O2 ART (test code = 9.8 % 15.0-23.0 L 9776904429) NA (test code = 133 mmol/L 135-145 L 6353915578) K+ (test code = 4.5 mmol/L 3.5-5.0 6582137611) AC CA IONZ (test code = 4.50 mg/dL 4.50-5.30 3397412195) GLUCOSE (test code = 239 mg/dL 70-110 H 3801548034) LACTIC ACID (test code 5.93 mmol/L 0.50-2.20 H = 4786134501) Lab Interpretation Abnormal (test code = 90135-4) [facility] GLUCOSE (AUTOMATED)2023-02-14 10:09:50 Test Item Value Reference Range Interpretation Comments POCT GLU (test code = 3037341684) 266 mg/dL 70-110 H Lab Interpretation (test code = Abnormal 02123-8) [facility] GLUCOSE (AUTOMATED)2023-02-14 10:09:50 Test Item Value Reference Range Interpretation Comments POCT GLU (test code = 0323124586) 266 mg/dL 70-110 H Lab Interpretation (test code = Abnormal 62013-0) [facility] GLUCOSE (AUTOMATED)2023-02-14 10:09:50 Test Item Value Reference Range Interpretation Comments POCT GLU (test code = 1725318892) 266 mg/dL 70-110 H Lab Interpretation (test code = Abnormal 35379-4) [facility] GLUCOSE (AUTOMATED)2023-02-14 08:58:10 Test Item Value Reference Range Interpretation Comments POCT GLU (test code = 6000852752) 254 mg/dL 70-110 H Lab Interpretation (test code = Abnormal 01052-4) [facility] GLUCOSE (AUTOMATED)2023-02-14 08:58:10 Test Item Value Reference Range Interpretation Comments POCT GLU (test code = 4215814659) 254 mg/dL 70-110 H Lab Interpretation (test code = Abnormal 96037-1) [facility] GLUCOSE (AUTOMATED)2023-02-14 08:58:10 Test Item Value Reference Range Interpretation Comments POCT GLU (test code = 2252774032) 254 mg/dL 70-110 H Lab Interpretation (test code = Abnormal 52626-9) [facility] GLUCOSE (AUTOMATED)2023-02-14 08:46:56 Test Item Value Reference Range Interpretation Comments POCT GLU (test code = 9307759716) 261 mg/dL 70-110 H Lab Interpretation (test code = Abnormal 73462-3) [facility] GLUCOSE (AUTOMATED)2023-02-14 08:46:56 Test Item Value Reference Range Interpretation Comments POCT GLU (test code = 9754739254) 261 mg/dL 70-110 H Lab Interpretation (test code = Abnormal 96870-3) [facility] GLUCOSE (AUTOMATED)2023-02-14 08:46:56 Test Item Value Reference Range Interpretation Comments POCT GLU (test code = 6961464585) 261 mg/dL 70-110 H Lab Interpretation (test code = Abnormal 45166-1) [facility] (in [facility]): 1 Units~Indication: 4) Evidence of platelet dysfunction and no response to DDAVP or cryoprecipitate with active hemorrhage or at risk for lnvtsnvj6327-46-19 08:12:26 Test Item Value Reference Range Interpretation Comments Unit Blood Type (test B Pos code = 4410) ISBT Blood Type Code 7300 (test code = 151203) Unit Number (test code [id number] = 4411) Blood Expiration Date & Time (test code = 704012) Status Information Issued (test code = 4412) Product Identification Platelets (test code = 4413) Product Code (test [id number] Performed at [facility] code = 4414) Laboratory Services - [facility] Blood [id number] [place] [address]Lggv Free: [phone] A No. [id number] [facility] ([facility]): 1 Units~Indication: 4) Evidence of platelet dysfunction and no response to DDAVP or cryoprecipitate with active hemorrhage or at risk for yrketsrb7323-19-62 08:12:26 Test Item Value Reference Range Interpretation Comments Unit Blood Type (test B Pos code = 4410) ISBT Blood Type Code 7300 (test code = 431486) Unit Number (test code [id number] = 4411) Blood Expiration Date & Time (test code = 641630) Status Information Issued (test code = 4412) Product Identification Platelets (test code = 4413) Product Code (test [id number] Performed at [facility] code = 4414) Laboratory Services [facility] Blood [address] [address]Yyyp Free: [phone] A No. [id number] [facility] (in units): 1 Units~Indication: 4) Evidence of platelet dysfunction and no response to DDAVP or cryoprecipitate with active hemorrhage or at risk for zhpqcfgt9262-44-63 08:12:26 Test Item Value Reference Range Interpretation Comments Unit Blood Type (test B Pos code = 4410) ISBT Blood Type Code 7300 (test code = 354858) Unit Number (test code [id number] = 4411) Blood Expiration Date & Time (test code = 868238) Status Information Issued (test code = 4412) Product Identification Platelets (test code = 4413) Product Code (test [id number] Performed at [facility] code = 4414) Laboratory Services [facility] Blood [address] [place] [address]Aylc Free: [phone] A No. [id number] [facility] (in units): 1 Units~Indication: 4) Evidence of platelet dysfunction and no response to DDAVP or cryoprecipitate with active hemorrhage or at risk for ubdzgvdf8500-86-81 08:12:26 Test Item Value Reference Range Interpretation Comments Unit Blood Type (test B Pos code = 4410) ISBT Blood Type Code 7300 (test code = 814921) Unit Number (test code [id number] = 4411) Blood Expiration Date & Time (test code = 913025) Status Information Issued (test code = 4412) Product Identification Platelets (test code = 4413) Product Code (test [id number] Performed at [facility] code = 4414) Laboratory Services - [facility] Blood [address] [address]Qafo Free: [phone] A No. [id number] [facility] (in units): 1 Units~Indication: 4) Evidence of platelet dysfunction and no response to DDAVP or cryoprecipitate with active hemorrhage or at risk for mqimjsgp1121-09-18 08:12:26 Test Item Value Reference Range Interpretation Comments Unit Blood Type (test B Pos code = 4410) ISBT Blood Type Code 7300 (test code = 466320) Unit Number (test code [id number] = 4411) Blood Expiration Date & Time (test code = 715644) Status Information Issued (test code = 4412) Product Identification Platelets (test code = 4413) Product Code (test [id number] Performed at [facility] code = 4414) Laboratory Services - [facility] Blood [address] [address]Opaf Free: [phone] A No. [id number] [facility] 20 + Lactic Cbeo7154-49-21 07:48:08 Test Item Value Reference Range Interpretation Comments PH (test code = 2) 7.37 7.35-7.45 PCO2 (test code = 31 See_Comment L [Automate d 6865253679) message] The sy stem which generated this result transmitted reference range : 35 - 45 mmHg. The reference range was not used to interpret this result as normal/abnormal . PO2 (test code = 83 See_Comment [Automated 6504328423) message] The sy stem which generated this result transmitted reference range : 80 - 100 mmHg. The reference range was not used to interpret this result as normal/abnormal . HCO3 (test code = 18 See_Comment L [Automate d 6748039962) message] The sy stem which generated this result transmitted reference range : 22 - 26 mEq/L. The reference range was not used to interpret this result as normal/abnormal . BE (test code = -7.0 See_Comment L [Automated 4021063309) message] The sy stem which generated this result transmitted reference range : -3.0 - 3.0 mEq/ L. The reference r kyra was not used to interpret this result as normal/abnormal . THB (test code = 8.3 g/dL 13.5-18.0 LL 3442978613) %O2HB (test code = 94.8 % 94.0-99.0 4076529226) %COHB ART (test code = 1.2 % 0.0-1.5 8901491644) %METHB ART (test code = 0.3 % 0.4-1.5 L 9954617135) VOL%O2 ART (test code = 11.2 % 15.0-23.0 L 5318251156) NA (test code = 133 mmol/L 135-145 L 6151853930) K+ (test code = 5.1 mmol/L 3.5-5.0 H 6791009625) AC CA IONZ (test code = 4.30 mg/dL 4.50-5.30 L 2866804485) GLUCOSE (test code = 241 mg/dL 70-110 H 0472900206) LACTIC ACID (test code 5.73 mmol/L 0.50-2.20 H = 1577848975) Lab Interpretation Abnormal (test code = 03993-5) [facility] + Lactic Efzs1354-39-01 07:48:08 Test Item Value Reference Range Interpretation Comments PH (test code = 2) 7.37 7.35-7.45 PCO2 (test code = 31 See_Comment L [Automate d 3108462889) message] The sy stem which generated this result transmitted reference range : 35 - 45 mmHg. The reference range was not used to interpret this result as normal/abnormal . PO2 (test code = 83 See_Comment [Automated 6798997822) message] The sy stem which generated this result transmitted reference range : 80 - 100 mmHg. The reference range was not used to interpret this result as normal/abnormal . HCO3 (test code = 18 See_Comment L [Automate d 0861730748) message] The sy stem which generated this result transmitted reference range : 22 - 26 mEq/L. The reference range was not used to interpret this result as normal/abnormal . BE (test code = -7.0 See_Comment L [Automated 8856464666) message] The sy stem which generated this result transmitted reference range : -3.0 - 3.0 mEq/ L. The reference r kyra was not used to interpret this result as normal/abnormal . THB (test code = 8.3 g/dL 13.5-18.0 LL 7365408485) %O2HB (test code = 94.8 % 94.0-99.0 1197707094) %COHB ART (test code = 1.2 % 0.0-1.5 5652204733) %METHB ART (test code = 0.3 % 0.4-1.5 L 8589535817) VOL%O2 ART (test code = 11.2 % 15.0-23.0 L 5263991483) NA (test code = 133 mmol/L 135-145 L 3310980306) K+ (test code = 5.1 mmol/L 3.5-5.0 H 3322170152) AC CA IONZ (test code = 4.30 mg/dL 4.50-5.30 L 8073300357) GLUCOSE (test code = 241 mg/dL 70-110 H 4761782226) LACTIC ACID (test code 5.73 mmol/L 0.50-2.20 H = 4798293933) Lab Interpretation Abnormal (test code = 23267-3) [facility] + Lactic Hxnt3508-35-69 07:48:08 Test Item Value Reference Range Interpretation Comments PH (test code = 2) 7.37 7.35-7.45 PCO2 (test code = 31 See_Comment L [Automate d 1533625306) message] The sy stem which generated this result transmitted reference range : 35 - 45 mmHg. The reference range was not used to interpret this result as normal/abnormal . PO2 (test code = 83 See_Comment [Automated 1994776820) message] The sy stem which generated this result transmitted reference range : 80 - 100 mmHg. The reference range was not used to interpret this result as normal/abnormal . HCO3 (test code = 18 See_Comment L [Automate d 9279109838) message] The sy stem which generated this result transmitted reference range : 22 - 26 mEq/L. The reference range was not used to interpret this result as normal/abnormal . BE (test code = -7.0 See_Comment L [Automated 6243612629) message] The sy stem which generated this result transmitted reference range : -3.0 - 3.0 mEq/ L. The reference r ykra was not used to interpret this result as normal/abnormal . THB (test code = 8.3 g/dL 13.5-18.0 LL 7388510020) %O2HB (test code = 94.8 % 94.0-99.0 2444514184) %COHB ART (test code = 1.2 % 0.0-1.5 0192971736) %METHB ART (test code = 0.3 % 0.4-1.5 L 3265255279) VOL%O2 ART (test code = 11.2 % 15.0-23.0 L 0138722077) NA (test code = 133 mmol/L 135-145 L 8887081188) K+ (test code = 5.1 mmol/L 3.5-5.0 H 0720646677) AC CA IONZ (test code = 4.30 mg/dL 4.50-5.30 L 6855234576) GLUCOSE (test code = 241 mg/dL 70-110 H 1638347206) LACTIC ACID (test code 5.73 mmol/L 0.50-2.20 H = 6043377796) Lab Interpretation Abnormal (test code = 10976-7) [facility] GLUCOSE (AUTOMATED)2023-02-14 07:39:13 Test Item Value Reference Range Interpretation Comments POCT GLU (test code = 0924376951) 260 mg/dL 70-110 H Lab Interpretation (test code = Abnormal 49104-9) [facility] GLUCOSE (AUTOMATED)2023-02-14 07:39:13 Test Item Value Reference Range Interpretation Comments POCT GLU (test code = 6546416800) 260 mg/dL 70-110 H Lab Interpretation (test code = Abnormal 18689-0) [facility] GLUCOSE (AUTOMATED)2023-02-14 07:39:13 Test Item Value Reference Range Interpretation Comments POCT GLU (test code = 1789609813) 260 mg/dL 70-110 H Lab Interpretation (test code = Abnormal 42440-0) [facility] GLUCOSE (AUTOMATED)2023-02-14 06:41:22 Test Item Value Reference Range Interpretation Comments POCT GLU (test code = 3165259002) 273 mg/dL 70-110 H Lab Interpretation (test code = Abnormal 98701-4) [facility] GLUCOSE (AUTOMATED)2023-02-14 06:41:22 Test Item Value Reference Range Interpretation Comments POCT GLU (test code = 3154899254) 273 mg/dL 70-110 H Lab Interpretation (test code = Abnormal 95319-5) [facility] GLUCOSE (AUTOMATED)2023-02-14 06:41:22 Test Item Value Reference Range Interpretation Comments POCT GLU (test code = 9770689012) 273 mg/dL 70-110 H Lab Interpretation (test code = Abnormal 29511-9) [facility] Packed RBC (in units), 1 Units 2023-02-14 06:41:07 Test Item Value Reference Range Interpretation Comments Cross Match Result Compatible (test code = 4409) ISBT Blood Type Code 5100 (test code = 742361) Unit Blood Type (test O Pos code = 4410) Unit Number (test [id number] code = 4411) Blood Expiration Date & Time (test code = 359307) Status Information Issued (test code = 4412) Product Red Blood Cells Identification (test code = 4413) Product Code (test P4089P90 Performed at [facility] code = 4414) Laboratory Services - [facility] Blood [address] [address]Tebw Free: [phone] A No. [id number] [facility] Packed RBC (in units), 1 Units 2023-02-14 06:41:07 Test Item Value Reference Range Interpretation Comments Cross Match Result Compatible (test code = 4409) ISBT Blood Type Code 5100 (test code = 682628) Unit Blood Type (test O Pos code = 4410) Unit Number (test [id number] code = 4411) Blood Expiration Date & Time (test code = 543072) Status Information Issued (test code = 4412) Product Red Blood Cells Identification (test code = 4413) Product Code (test J0015P65 Performed at [facility] code = 4414) Laboratory Services [facility] Blood [address] [address]Vpfs Free: [phone] A No. [id number] [facility] P[facility] RBC (in units), 1 Units 2023-02-14 06:41:07 Test Item Value Reference Range Interpretation Comments Cross Match Result Compatible (test code = 4409) ISBT Blood Type Code 5100 (test code = 757781) Unit Blood Type (test O Pos code = 4410) Unit Number (test [id number] code = 4411) Blood Expiration Date 765633930848 & Time (test code = 860282) Status Information Issued (test code = 4412) Product Red Blood Cells Identification (test code = 4413) Product Code (test H7788O77 Performed at [facility] code = 4414) Laboratory Services [facility] Blood [address] [address]Imkt Free: [phone] A No. [id number] [facility] 20 + Lactic Kceu0754-64-76 06:31:44 Test Item Value Reference Range Interpretation Comments PH (test code = 2) 7.39 7.35-7.45 PCO2 (test code = 31 See_Comment L [Automate d 8824349455) message] The sy stem which generated this result transmitted reference range : 35 - 45 mmHg. The reference range was not used to interpret this result as normal/abnormal . PO2 (test code = 83 See_Comment [Automated 4436707302) message] The sy stem which generated this result transmitted reference range : 80 - 100 mmHg. The reference range was not used to interpret this result as normal/abnormal . HCO3 (test code = 18 See_Comment L [Automate d 5345592721) message] The sy stem which generated this result transmitted reference range : 22 - 26 mEq/L. The reference range was not used to interpret this result as normal/abnormal . BE (test code = -6.2 See_Comment L [Automated 8539751647) message] The sy stem which generated this result transmitted reference range : -3.0 - 3.0 mEq/ L. The reference r kyra was not used to interpret this result as normal/abnormal . THB (test code = 7.3 g/dL 13.5-18.0 LL 0363952505) %O2HB (test code = 94.7 % 94.0-99.0 5160012385) %COHB ART (test code = 1.4 % 0.0-1.5 2006883488) %METHB ART (test code = 0.0 % 0.4-1.5 L 2755521075) VOL%O2 ART (test code = 9.9 % 15.0-23.0 L 1460513218) NA (test code = 132 mmol/L 135-145 L 4314469600) K+ (test code = 5.5 mmol/L 3.5-5.0 H 1594593149) AC CA IONZ (test code = 4.10 mg/dL 4.50-5.30 L 4631835315) GLUCOSE (test code = 243 mg/dL 70-110 H 4098021324) LACTIC ACID (test code 6.28 mmol/L 0.50-2.20 H = 3704683684) Lab Interpretation Abnormal (test code = 08704-2) [facility] + Lactic Jssa3010-93-82 06:31:44 Test Item Value Reference Range Interpretation Comments PH (test code = 2) 7.39 7.35-7.45 PCO2 (test code = 31 See_Comment L [Automate d 6899929781) message] The sy stem which generated this result transmitted reference range : 35 - 45 mmHg. The reference range was not used to interpret this result as normal/abnormal . PO2 (test code = 83 See_Comment [Automated 2121492483) message] The sy stem which generated this result transmitted reference range : 80 - 100 mmHg. The reference range was not used to interpret this result as normal/abnormal . HCO3 (test code = 18 See_Comment L [Automate d 6347208094) message] The sy stem which generated this result transmitted reference range : 22 - 26 mEq/L. The reference range was not used to interpret this result as normal/abnormal . BE (test code = -6.2 See_Comment L [Automated 6804172342) message] The sy stem which generated this result transmitted reference range : -3.0 - 3.0 mEq/ L. The reference r kyra was not used to interpret this result as normal/abnormal . THB (test code = 7.3 g/dL 13.5-18.0 LL 5478680667) %O2HB (test code = 94.7 % 94.0-99.0 3175568134) %COHB ART (test code = 1.4 % 0.0-1.5 8608726621) %METHB ART (test code = 0.0 % 0.4-1.5 L 5329451282) VOL%O2 ART (test code = 9.9 % 15.0-23.0 L 6662131394) NA (test code = 132 mmol/L 135-145 L 6200356611) K+ (test code = 5.5 mmol/L 3.5-5.0 H 4692654327) AC CA IONZ (test code = 4.10 mg/dL 4.50-5.30 L 7322517701) GLUCOSE (test code = 243 mg/dL 70-110 H 8867278504) LACTIC ACID (test code 6.28 mmol/L 0.50-2.20 H = 5905418506) Lab Interpretation Abnormal (test code = 68269-7) [facility] + Lactic Qfej7432-68-83 06:31:44 Test Item Value Reference Range Interpretation Comments PH (test code = 2) 7.39 7.35-7.45 PCO2 (test code = 31 See_Comment L [Automate d 3469704559) message] The sy stem which generated this result transmitted reference range : 35 - 45 mmHg. The reference range was not used to interpret this result as normal/abnormal . PO2 (test code = 83 See_Comment [Automated 4596000231) message] The sy stem which generated this result transmitted reference range : 80 - 100 mmHg. The reference range was not used to interpret this result as normal/abnormal . HCO3 (test code = 18 See_Comment L [Automate d 7736216611) message] The sy stem which generated this result transmitted reference range : 22 - 26 mEq/L. The reference range was not used to interpret this result as normal/abnormal . BE (test code = -6.2 See_Comment L [Automated 0105396199) message] The sy stem which generated this result transmitted reference range : -3.0 - 3.0 mEq/ L. The reference r kyra was not used to interpret this result as normal/abnormal . THB (test code = 7.3 g/dL 13.5-18.0 LL 8216152192) %O2HB (test code = 94.7 % 94.0-99.0 6120139759) %COHB ART (test code = 1.4 % 0.0-1.5 9919419922) %METHB ART (test code = 0.0 % 0.4-1.5 L 6830523005) VOL%O2 ART (test code = 9.9 % 15.0-23.0 L 8534015926) NA (test code = 132 mmol/L 135-145 L 5320036408) K+ (test code = 5.5 mmol/L 3.5-5.0 H 1945968661) AC CA IONZ (test code = 4.10 mg/dL 4.50-5.30 L 2373911394) GLUCOSE (test code = 243 mg/dL 70-110 H 2901398085) LACTIC ACID (test code 6.28 mmol/L 0.50-2.20 H = 0548586933) Lab Interpretation Abnormal (test code = 92898-0) [facility] GLUCOSE (AUTOMATED)2023-02-14 05:52:53 Test Item Value Reference Range Interpretation Comments POCT GLU (test code = 3146307100) 261 mg/dL 70-110 H Lab Interpretation (test code = Abnormal 94033-9) [facility] GLUCOSE (AUTOMATED)2023-02-14 05:52:53 Test Item Value Reference Range Interpretation Comments POCT GLU (test code = 9229266061) 261 mg/dL 70-110 H Lab Interpretation (test code = Abnormal 41278-8) [facility] GLUCOSE (AUTOMATED)2023-02-14 05:52:53 Test Item Value Reference Range Interpretation Comments POCT GLU (test code = 0046406204) 261 mg/dL 70-110 H Lab Interpretation (test code = Abnormal 45131-3) [facility] + Lactic Qtdp2127-94-99 05:01:55 Test Item Value Reference Range Interpretation Comments PH (test code = 2) 7.29 7.35-7.45 L PCO2 (test code = 38 See_Comment [Automate d 7843015527) message] The sy stem which generated this result transmitted reference range : 35 - 45 mmHg. The reference range was not used to interpret this result as normal/abnormal . PO2 (test code = 71 See_Comment L [Automated 3338088456) message] The sy stem which generated this result transmitted reference range : 80 - 100 mmHg. The reference range was not used to interpret this result as normal/abnormal . HCO3 (test code = 18 See_Comment L [Automate d 4098827379) message] The sy stem which generated this result transmitted reference range : 22 - 26 mEq/L. The reference range was not used to interpret this result as normal/abnormal . BE (test code = -8.0 See_Comment L [Automated 4817617255) message] The sy stem which generated this result transmitted reference range : -3.0 - 3.0 mEq/ L. The reference r kyra was not used to interpret this result as normal/abnormal . THB (test code = 8.3 g/dL 13.5-18.0 LL 0482799612) %O2HB (test code = 92.2 % 94.0-99.0 L 7432697467) %COHB ART (test code = 0.8 % 0.0-1.5 5998432012) %METHB ART (test code = 0.1 % 0.4-1.5 L 7646076288) VOL%O2 ART (test code = 10.9 % 15.0-23.0 L 2037045020) NA (test code = 132 mmol/L 135-145 L 5100225067) K+ (test code = 4.9 mmol/L 3.5-5.0 8397290856) AC CA IONZ (test code = 4.20 mg/dL 4.50-5.30 L 5694356921) GLUCOSE (test code = 239 mg/dL 70-110 H 8287287818) LACTIC ACID (test code 5.88 mmol/L 0.50-2.20 H = 3631541034) Lab Interpretation Abnormal (test code = 92285-6) [facility] + Lactic Mctn5603-29-25 05:01:55 Test Item Value Reference Range Interpretation Comments PH (test code = 2) 7.29 7.35-7.45 L PCO2 (test code = 38 See_Comment [Automate d 7050777571) message] The sy stem which generated this result transmitted reference range : 35 - 45 mmHg. The reference range was not used to interpret this result as normal/abnormal . PO2 (test code = 71 See_Comment L [Automated 4754336036) message] The sy stem which generated this result transmitted reference range : 80 - 100 mmHg. The reference range was not used to interpret this result as normal/abnormal . HCO3 (test code = 18 See_Comment L [Automate d 6418171717) message] The sy stem which generated this result transmitted reference range : 22 - 26 mEq/L. The reference range was not used to interpret this result as normal/abnormal . BE (test code = -8.0 See_Comment L [Automated 3853417757) message] The sy stem which generated this result transmitted reference range : -3.0 - 3.0 mEq/ L. The reference r kyra was not used to interpret this result as normal/abnormal . THB (test code = 8.3 g/dL 13.5-18.0 LL 8852097246) %O2HB (test code = 92.2 % 94.0-99.0 L 7169422506) %COHB ART (test code = 0.8 % 0.0-1.5 4971691126) %METHB ART (test code = 0.1 % 0.4-1.5 L 6441758181) VOL%O2 ART (test code = 10.9 % 15.0-23.0 L 5252600845) NA (test code = 132 mmol/L 135-145 L 0341542262) K+ (test code = 4.9 mmol/L 3.5-5.0 8410209788) AC CA IONZ (test code = 4.20 mg/dL 4.50-5.30 L 9186846465) GLUCOSE (test code = 239 mg/dL 70-110 H 5745242921) LACTIC ACID (test code 5.88 mmol/L 0.50-2.20 H = 5173910380) Lab Interpretation Abnormal (test code = 25090-2) [facility] + Lactic Shte5688-91-58 05:01:55 Test Item Value Reference Range Interpretation Comments PH (test code = 2) 7.29 7.35-7.45 L PCO2 (test code = 38 See_Comment [Automate d 0150498955) message] The sy stem which generated this result transmitted reference range : 35 - 45 mmHg. The reference range was not used to interpret this result as normal/abnormal . PO2 (test code = 71 See_Comment L [Automated 3316998087) message] The sy stem which generated this result transmitted reference range : 80 - 100 mmHg. The reference range was not used to interpret this result as normal/abnormal . HCO3 (test code = 18 See_Comment L [Automate d 1034259525) message] The sy stem which generated this result transmitted reference range : 22 - 26 mEq/L. The reference range was not used to interpret this result as normal/abnormal . BE (test code = -8.0 See_Comment L [Automated 9635162803) message] The sy stem which generated this result transmitted reference range : -3.0 - 3.0 mEq/ L. The reference r kyra was not used to interpret this result as normal/abnormal . THB (test code = 8.3 g/dL 13.5-18.0 LL 1317493641) %O2HB (test code = 92.2 % 94.0-99.0 L 5694739362) %COHB ART (test code = 0.8 % 0.0-1.5 2904500821) %METHB ART (test code = 0.1 % 0.4-1.5 L 4145971165) VOL%O2 ART (test code = 10.9 % 15.0-23.0 L 3198448729) NA (test code = 132 mmol/L 135-145 L 3359528873) K+ (test code = 4.9 mmol/L 3.5-5.0 0753148465) AC CA IONZ (test code = 4.20 mg/dL 4.50-5.30 L 7959326320) GLUCOSE (test code = 239 mg/dL 70-110 H 7906754781) LACTIC ACID (test code 5.88 mmol/L 0.50-2.20 H = 9236892201) Lab Interpretation Abnormal (test code = 65721-6) [facility] GLUCOSE (AUTOMATED)2023-02-14 04:55:27 Test Item Value Reference Range Interpretation Comments POCT GLU (test code = 3946735637) 263 mg/dL 70-110 H Lab Interpretation (test code = Abnormal 98780-6) [facility] GLUCOSE (AUTOMATED)2023-02-14 04:55:27 Test Item Value Reference Range Interpretation Comments POCT GLU (test code = 5568469467) 263 mg/dL 70-110 H Lab Interpretation (test code = Abnormal 07216-4) [facility] GLUCOSE (AUTOMATED)2023-02-14 04:55:27 Test Item Value Reference Range Interpretation Comments POCT GLU (test code = 6262179725) 263 mg/dL 70-110 H Lab Interpretation (test code = Abnormal 16437-2) [facility] + Lactic Xeqm5815-94-23 04:10:03 Test Item Value Reference Range Interpretation Comments PH (test code = 2) 7.33 7.35-7.45 L PCO2 (test code = 34 See_Comment L [Automate d 3570356061) message] The sy stem which generated this result transmitted reference range : 35 - 45 mmHg. The reference range was not used to interpret this result as normal/abnormal . PO2 (test code = 87 See_Comment [Automated 3213346588) message] The sy stem which generated this result transmitted reference range : 80 - 100 mmHg. The reference range was not used to interpret this result as normal/abnormal . HCO3 (test code = 18 See_Comment L [Automate d 2770855665) message] The sy stem which generated this result transmitted reference range : 22 - 26 mEq/L. The reference range was not used to interpret this result as normal/abnormal . BE (test code = -7.4 See_Comment L [Automated [id number]) message] The sy stem which generated this result transmitted reference range : -3.0 - 3.0 mEq/ L. The reference r kyra was not used to interpret this result as normal/abnormal . THB (test code = 9.9 g/dL 13.5-18.0 L 2451269669) %O2HB (test code = 95.8 % 94.0-99.0 2880588255) %COHB ART (test code = 0.5 % 0.0-1.5 4976988219) %METHB ART (test code = 0.0 % 0.4-1.5 L 5827107999) VOL%O2 ART (test code = 13.5 % 15.0-23.0 L 8634552639) NA (test code = 133 mmol/L 135-145 L 1156267949) K+ (test code = 4.8 mmol/L 3.5-5.0 9471332484) AC CA IONZ (test code = 3.90 mg/dL 4.50-5.30 L 2248026909) GLUCOSE (test code = 227 mg/dL 70-110 H 0271943864) LACTIC ACID (test code 4.99 mmol/L 0.50-2.20 H = 2690832542) Lab Interpretation Abnormal (test code = 69798-3) [facility] [id number] 04:10:03 Test Item Value Reference Range Interpretation Comments PH (test code = 2) 7.33 7.35-7.45 L PCO2 (test code = 34 See_Comment L [Automate d 9847888292) message] The sy stem which generated this result transmitted reference range : 35 - 45 mmHg. The reference range was not used to interpret this result as normal/abnormal . PO2 (test code = 87 See_Comment [Automated 5344762423) message] The sy stem which generated this result transmitted reference range : 80 - 100 mmHg. The reference range was not used to interpret this result as normal/abnormal . HCO3 (test code = 18 See_Comment L [Automate d 2752764399) message] The sy stem which generated this result transmitted reference range : 22 - 26 mEq/L. The reference range was not used to interpret this result as normal/abnormal . BE (test code = -7.4 See_Comment L [Automated 6366935814) message] The sy stem which generated this result transmitted reference range : -3.0 - 3.0 mEq/ L. The reference r kyra was not used to interpret this result as normal/abnormal . THB (test code = 9.9 g/dL 13.5-18.0 L 2454176991) %O2HB (test code = 95.8 % 94.0-99.0 2690380655) %COHB ART (test code = 0.5 % 0.0-1.5 9464638906) %METHB ART (test code = 0.0 % 0.4-1.5 L 4327222543) VOL%O2 ART (test code = 13.5 % 15.0-23.0 L 6577159872) NA (test code = 133 mmol/L 135-145 L 5943826440) K+ (test code = 4.8 mmol/L 3.5-5.0 0027577360) AC CA IONZ (test code = 3.90 mg/dL 4.50-5.30 L 4583628915) GLUCOSE (test code = 227 mg/dL 70-110 H 9105851385) LACTIC ACID (test code 4.99 mmol/L 0.50-2.20 H = 0807427869) Lab Interpretation Abnormal (test code = 38800-0) [facility] Lactic [id number] 04:10:03 Test Item Value Reference Range Interpretation Comments PH (test code = 2) 7.33 7.35-7.45 L PCO2 (test code = 34 See_Comment L [Automate d 5235802580) message] The sy stem which generated this result transmitted reference range : 35 - 45 mmHg. The reference range was not used to interpret this result as normal/abnormal . PO2 (test code = 87 See_Comment [Automated 2504390994) message] The sy stem which generated this result transmitted reference range : 80 - 100 mmHg. The reference range was not used to interpret this result as normal/abnormal . HCO3 (test code = 18 See_Comment L [Automate d 8891477050) message] The sy stem which generated this result transmitted reference range : 22 - 26 mEq/L. The reference range was not used to interpret this result as normal/abnormal . BE (test code = -7.4 See_Comment L [Automated 2907830834) message] The sy stem which generated this result transmitted reference range : -3.0 - 3.0 mEq/ L. The reference r kyra was not used to interpret this result as normal/abnormal . THB (test code = 9.9 g/dL 13.5-18.0 L 7665417896) %O2HB (test code = 95.8 % 94.0-99.0 6480915867) %COHB ART (test code = 0.5 % 0.0-1.5 1502953329) %METHB ART (test code = 0.0 % 0.4-1.5 L 7506771737) VOL%O2 ART (test code = 13.5 % 15.0-23.0 L 2523278255) NA (test code = 133 mmol/L 135-145 L 4377505762) K+ (test code = 4.8 mmol/L 3.5-5.0 9993938347) AC CA IONZ (test code = 3.90 mg/dL 4.50-5.30 L 7361299916) GLUCOSE (test code = 227 mg/dL 70-110 H 2601732679) LACTIC ACID (test code 4.99 mmol/L 0.50-2.20 H = 5845260697) Lab Interpretation Abnormal (test code = 99548-3) [facility] GLUCOSE (AUTOMATED)2023-02-14 04:05:23 Test Item Value Reference Range Interpretation Comments POCT GLU (test code = 0509968471) 247 mg/dL 70-110 H Lab Interpretation (test code = Abnormal 26190-5) [facility] GLUCOSE (AUTOMATED)2023-02-14 04:05:23 Test Item Value Reference Range Interpretation Comments POCT GLU (test code = 8119252469) 247 mg/dL 70-110 H Lab Interpretation (test code = Abnormal 87358-6) [facility] GLUCOSE (AUTOMATED)2023-02-14 04:05:23 Test Item Value Reference Range Interpretation Comments POCT GLU (test code = 4320236011) 247 mg/dL 70-110 H Lab Interpretation (test code = Abnormal 64295-4) [facility] ([facility]), 1 Units 2023-02-14 02:51:27 Test Item Value Reference Range Interpretation Comments Cross Match Result Compatible (test code = 4409) ISBT Blood Type Code 5100 (test code = 853944) Unit Blood Type (test O Pos code = 4410) Unit Number (test [id number] code = 4411) Blood Expiration Date & Time (test code = 434426) Status Information Issued (test code = 4412) Product Red Blood Cells Identification (test code = 4413) Product Code (test [id number] Performed at [facility] code = 4414) Laboratory Services [facility] Blood [address] [address]Ydjx Free: [phone] A No. [id number] [facility] (in units), 1 Units 2023-02-14 02:51:27 Test Item Value Reference Range Interpretation Comments Cross Match Result Compatible (test code = 4409) ISBT Blood Type Code 5100 (test code = 062418) Unit Blood Type (test O Pos code = 4410) Unit Number (test [id number] code = 4411) Blood Expiration Date & Time (test code = 544540) Status Information Issued (test code = 4412) Product Red Blood Cells Identification (test code = 4413) Product Code (test W4964T74 Performed at [facility] code = 4414) Laboratory Services [address] [address]Wnhl Free: [phone] A No. [id number] [facility] ([facility] units), 1 Units 2023-02-14 02:51:27 Test Item Value Reference Range Interpretation Comments Cross Match Result Compatible (test code = 4409) ISBT Blood Type Code 5100 (test code = 068651) Unit Blood Type (test O Pos code = 4410) Unit Number (test [id number] code = 4411) Blood Expiration Date & Time (test code = 396972) Status Information Issued (test code = 4412) Product Red Blood Cells Identification (test code = 4413) Product Code (test C4591H69 Performed at [facility] code = 4414) Laboratory Services [facility] Blood [address] [address]Ovwa Free: [phone] A No. [id number] [facility]COOX+NA+K+GLU+CA2+ (While Intubated) 2023-02-14 02:48:14 Test Item Value Reference Range Interpretation Comments PH (test code = 2) 7.26 7.35-7.45 L PCO2 (test code = 46 See_Comment H [Automate d message] 9913815113) The system [employer] generated this result transmit che reference range : 35 - 45 mmHg. The reference range was not used to interpret this result as normal/abnormal . PO2 (test code = 92 See_Comment [Automated message] 1332486564) The system [employer] generated this result transmit che reference range : 80 - 100 mmHg. The reference range was not used to interpret this result as normal/abnormal . HCO3 (test code = 20 See_Comment L [Automate d message] 9487920958) The system [employer] generated this result transmit che reference range : 22 - 26 mEq/L. The reference range was not used to interpret this result as normal/abnormal . BE (test code = -6.4 See_Comment L [Automated message] 2181304470) The system [employer] generated this result transmit che reference range : -3.0 - 3.0 mEq/ L. The reference r kyra was not used to interpret this result as normal/abnormal . THB (test code = 9.3 g/dL 13.5-18.0 L 2507366880) %O2HB (test code = 95.7 % 94.0-99.0 8765025977) %COHB ART (test code = 0.5 % 0.0-1.5 9921648250) %METHB ART (test code = 0.0 % 0.4-1.5 L 7287658880) VOL%O2 ART (test code = 12.7 % 15.0-23.0 L 7663891054) NA (test code = 133 mmol/L 135-145 L 8885299432) K+ (test code = 4.1 mmol/L 3.5-5.0 8801542003) AC CA IONZ (test code = 4.40 mg/dL 4.50-5.30 L 7388499308) GLUCOSE (test code = 191 mg/dL 70-110 H 5864478480) Lab Interpretation Abnormal (test code = 06546-2) [facility]+K+GLU+CA2+ (While Intubated) 2023-02-14 02:48:14 Test Item Value Reference Range Interpretation Comments PH (test code = 2) 7.26 7.35-7.45 L PCO2 (test code = 46 See_Comment H [Automate d message] 0112699606) The system [employer] generated this result transmit che reference range : 35 - 45 mmHg. The reference range was not used to interpret this result as normal/abnormal . PO2 (test code = 92 See_Comment [Automated message] 8131748123) The system [employer] generated this result transmit che reference range : 80 - 100 mmHg. The reference range was not used to interpret this result as normal/abnormal . HCO3 (test code = 20 See_Comment L [Automate d message] 9678659600) The system [employer] generated this result transmit che reference range : 22 - 26 mEq/L. The reference range was not used to interpret this result as normal/abnormal . BE (test code = -6.4 See_Comment L [Automated message] 4744816971) The system [employer] generated this result transmit che reference range : -3.0 - 3.0 mEq/ L. The reference r kyra was not used to interpret this result as normal/abnormal . THB (test code = 9.3 g/dL 13.5-18.0 L 2123746288) %O2HB (test code = 95.7 % 94.0-99.0 1145750767) %COHB ART (test code = 0.5 % 0.0-1.5 4307136537) %METHB ART (test code = 0.0 % 0.4-1.5 L 4598179897) VOL%O2 ART (test code = 12.7 % 15.0-23.0 L 6853332784) NA (test code = 133 mmol/L 135-145 L 9590531955) K+ (test code = 4.1 mmol/L 3.5-5.0 3620906365) AC CA IONZ (test code = 4.40 mg/dL 4.50-5.30 L 4755546147) GLUCOSE (test code = 191 mg/dL 70-110 H 6702093990) Lab Interpretation Abnormal (test code = 15932-1) [facility]+K+GLU+CA2+ (While Intubated) 2023-02-14 02:48:14 Test Item Value Reference Range Interpretation Comments PH (test code = 2) 7.26 7.35-7.45 L PCO2 (test code = 46 See_Comment H [Automate d message] 3453735169) The system [employer] h generated this result transmit che reference range : 35 - 45 mmHg. The reference range was not used to interpret this result as normal/abnormal . PO2 (test code = 92 See_Comment [Automated message] 0426685764) The system [employer] generated this result transmit che reference range : 80 - 100 mmHg. The reference range was not used to interpret this result as normal/abnormal . HCO3 (test code = 20 See_Comment L [Automate d message] 8866328270) The system [employer] generated this result transmit che reference range : 22 - 26 mEq/L. The reference range was not used to interpret this result as normal/abnormal . BE (test code = -6.4 See_Comment L [Automated message] 2210645108) The system [employer] generated this result transmit che reference range : -3.0 - 3.0 mEq/ L. The reference r kyra was not used to interpret this result as normal/abnormal . THB (test code = 9.3 g/dL 13.5-18.0 L 9726818605) %O2HB (test code = 95.7 % 94.0-99.0 4380115706) %COHB ART (test code = 0.5 % 0.0-1.5 9333673920) %METHB ART (test code = 0.0 % 0.4-1.5 L 0393653198) VOL%O2 ART (test code = 12.7 % 15.0-23.0 L 2303825741) NA (test code = 133 mmol/L 135-145 L 8486969105) K+ (test code = 4.1 mmol/L 3.5-5.0 5703119991) AC CA IONZ (test code = 4.40 mg/dL 4.50-5.30 L 1372017648) GLUCOSE (test code = 191 mg/dL 70-110 H 1977893759) Lab Interpretation Abnormal (test code = 73536-9) [facility] WITH [id number] 02:36:00 Test Item Value Reference Range Interpretation Comments WBC (test code = 16.72 See_Comment H [Automated 6690-2) message] The system which generated this result transmit che reference range : 4.20 - 10.70 10*3/?L. The reference range was not used to interpret this result as normal/abnormal . RBC (test code = 2.71 See_Comment L [Automated 789-8) message] The system which generated this result transmit che reference range : 4.26 - 5.52 10*6/?L. The reference range was not used to interpret this result as normal/abnormal . HGB (test code = 7.7 g/dL 12.2-16.4 L 718-7) HCT (test code = 23.6 % 38.4-49.3 L 4544-3) MCV (test code = 87.1 fL 81.7-95.6 787-2) MCH (test code = 28.4 pg 26.1-32.7 785-6) MCHC (test code = 32.6 g/dL 31.2-35.0 786-4) RDW-SD (test code = 43.4 fL 38.5-51.6 24544-1) RDW-CV (test code = 14.0 % 12.1-15.4 788-0) PLT (test code = 109 See_Comment L [Automated 777-3) message] The system which generated this result transmit che reference range : 150 - 328 10*3/ ?L. The reference range was not u sed to interpret th is result as normal/abnormal . MPV (test code = 10.3 fL 9.8-13.0 79251-1) NRBC/100 WBC (test 0.0 See_Comment [Automat ed code = 3737593310) message] The system which generated this result transmit che reference range : 0.0 - 10.0 /100 WBCs. The reference range was not used to interpret this result as normal/abnormal . NRBC x10^3 (test code See_Comment [Auto mated = 7780984018) message] The system which generated this result transmit che reference range : 10*3/?L. The reference range was not used to interpret this result as normal/abnormal . GRAN MAT (NEUT) % 77.9 % (test code = 770-8) IMM GRAN % (test code 0.70 % = 1199860518) LYMPH % (test code = 9.3 % 736-9) MONO % (test code = 11.8 % 5905-5) EOS % (test code = 0.1 % 713-8) BASO % (test code = 0.2 % 706-2) GRAN MAT x10^3(ANC) 13.01 10*3/uL 1.99-6.95 H (test code = 2197925110) IMM GRAN x10^3 (test 0.12 10*3/uL 0.00-0.06 H code = 8188368732) LYMPH x10^3 (test code 1.56 10*3/uL 1.09-3.23 = 731-0) MONO x10^3 (test code 1.98 10*3/uL 0.36-1.02 H = 742-7) EOS x10^3 (test code = 0.06-0.53 L 711-2) BASO x10^3 (test code 0.04 10*3/uL 0.01-0.09 = 704-7) BRADLEY CELLS (test code 2+ See_Comment A [Auto mated = 6190-9) message] The system which generated this result transmit che reference range : (none). The reference range was not used to interpret this result as normal/abnormal . BANDS (test code = Increased A 0257519154) Lab Interpretation Abnormal (test code = 82688-9) [facility] WITH [id number] 02:36:00 Test Item Value Reference Range Interpretation Comments WBC (test code = 16.72 See_Comment H [Automated 9690-2) message] The system which generated this result transmit che reference range : 4.20 - 10.70 10*3/?L. The reference range was not used to interpret this result as normal/abnormal . RBC (test code = 2.71 See_Comment L [Automated 209-8) message] The system which generated this result transmit che reference range : 4.26 - 5.52 10*6/?L. The reference range was not used to interpret this result as normal/abnormal . HGB (test code = 7.7 g/dL 12.2-16.4 L 718-7) HCT (test code = 23.6 % 38.4-49.3 L 4544-3) MCV (test code = 87.1 fL 81.7-95.6 787-2) MCH (test code = 28.4 pg 26.1-32.7 785-6) MCHC (test code = 32.6 g/dL 31.2-35.0 786-4) RDW-SD (test code = 43.4 fL 38.5-51.6 61776-9) RDW-CV (test code = 14.0 % 12.1-15.4 788-0) PLT (test code = 109 See_Comment L [Automated 777-3) message] The system which generated this result transmit che reference range : 150 - 328 10*3/ ?L. The reference range was not u sed to interpret th is result as normal/abnormal . MPV (test code = 10.3 fL 9.8-13.0 80685-6) NRBC/100 WBC (test 0.0 See_Comment [Automat ed code = 3545808626) message] The system which generated this result transmit che reference range : 0.0 - 10.0 /100 WBCs. The reference range was not used to interpret this result as normal/abnormal . NRBC x10^3 (test code See_Comment [Auto mated = 2604106575) message] The system which generated this result transmit che reference range : 10*3/?L. The reference range was not used to interpret this result as normal/abnormal . GRAN MAT (NEUT) % 77.9 % (test code = 770-8) IMM GRAN % (test code 0.70 % = 9508535655) LYMPH % (test code = 9.3 % 736-9) MONO % (test code = 11.8 % 5905-5) EOS % (test code = 0.1 % 713-8) BASO % (test code = 0.2 % 706-2) GRAN MAT x10^3(ANC) 13.01 10*3/uL 1.99-6.95 H (test code = 3398990179) IMM GRAN x10^3 (test 0.12 10*3/uL 0.00-0.06 H code = 7994212701) LYMPH x10^3 (test code 1.56 10*3/uL 1.09-3.23 = 731-0) MONO x10^3 (test code 1.98 10*3/uL 0.36-1.02 H = 742-7) EOS x10^3 (test code = 0.06-0.53 L 711-2) BASO x10^3 (test code 0.04 10*3/uL 0.01-0.09 = 704-7) BRADLEY CELLS (test code 2+ See_Comment A [Auto mated = 6248-9) message] The system which generated this result transmit che reference range : (none). The reference range was not used to interpret this result as normal/abnormal . BANDS (test code = Increased A 6781828353) Lab Interpretation Abnormal (test code = 48950-6) [facility] WITH [id number] 02:36:00 Test Item Value Reference Range Interpretation Comments WBC (test code = 16.72 See_Comment H [Automated 1490-2) message] The system which generated this result transmit che reference range : 4.20 - 10.70 10*3/?L. The reference range was not used to interpret this result as normal/abnormal . RBC (test code = 2.71 See_Comment L [Automated 919-8) message] The system which generated this result transmit che reference range : 4.26 - 5.52 10*6/?L. The reference range was not used to interpret this result as normal/abnormal . HGB (test code = 7.7 g/dL 12.2-16.4 L 718-7) HCT (test code = 23.6 % 38.4-49.3 L 4544-3) MCV (test code = 87.1 fL 81.7-95.6 787-2) MCH (test code = 28.4 pg 26.1-32.7 785-6) MCHC (test code = 32.6 g/dL 31.2-35.0 786-4) RDW-SD (test code = 43.4 fL 38.5-51.6 22925-7) RDW-CV (test code = 14.0 % 12.1-15.4 788-0) PLT (test code = 109 See_Comment L [Automated 777-3) message] The system which generated this result transmit che reference range : 150 - 328 10*3/ ?L. The reference range was not u sed to interpret th is result as normal/abnormal . MPV (test code = 10.3 fL 9.8-13.0 27236-6) NRBC/100 WBC (test 0.0 See_Comment [Automat ed code = 5648184347) message] The system which generated this result transmit che reference range : 0.0 - 10.0 /100 WBCs. The reference range was not used to interpret this result as normal/abnormal . NRBC x10^3 (test code See_Comment [Auto mated = 2186441526) message] The system which generated this result transmit che reference range : 10*3/?L. The reference range was not used to interpret this result as normal/abnormal . GRAN MAT (NEUT) % 77.9 % (test code = 770-8) IMM GRAN % (test code 0.70 % = 4517518983) LYMPH % (test code = 9.3 % 736-9) MONO % (test code = 11.8 % 5905-5) EOS % (test code = 0.1 % 713-8) BASO % (test code = 0.2 % 706-2) GRAN MAT x10^3(ANC) 13.01 10*3/uL 1.99-6.95 H (test code = 8973062647) IMM GRAN x10^3 (test 0.12 10*3/uL 0.00-0.06 H code = 9199674951) LYMPH x10^3 (test code 1.56 10*3/uL 1.09-3.23 = 731-0) MONO x10^3 (test code 1.98 10*3/uL 0.36-1.02 H = 742-7) EOS x10^3 (test code = 0.06-0.53 L 711-2) BASO x10^3 (test code 0.04 10*3/uL 0.01-0.09 = 704-7) BRADLEY CELLS (test code 2+ See_Comment A [Auto mated = 7790-9) message] The system which generated this result transmit che reference range : (none). The reference range was not used to interpret this result as normal/abnormal . BANDS (test code = Increased A 5242760684) Lab Interpretation Abnormal (test code = 38697-5) [facility] ([facility]), 1 Units 2023-02-14 02:07:54 Test Item Value Reference Range Interpretation Comments Cross Match Result Compatible (test code = 4409) ISBT Blood Type Code 5100 (test code = 021956) Unit Blood Type (test O Pos code = 4410) Unit Number (test [id number] code = 4411) Blood Expiration Date & Time (test code = 256600) Status Information Issued (test code = 4412) Product Red Blood Cells Identification (test code = 4413) Product Code (test A4925V51 Performed at [facility] code = 4414) Laboratory Services - [facility] Blood [address] [place] [address]Vvro Free: [phone] A No. [id number] [facility] Packed RBC (in units), 1 Units 2023-02-14 02:07:54 Test Item Value Reference Range Interpretation Comments Cross Match Result Compatible (test code = 4409) ISBT Blood Type Code 5100 (test code = 300612) Unit Blood Type (test O Pos code = 4410) Unit Number (test [id number] code = 4411) Blood Expiration Date & Time (test code = 966375) Status Information Issued (test code = 4412) Product Red Blood Cells Identification (test code = 4413) Product Code (test D1473G39 Performed at [facility] code = 4414) Laboratory Services - [facility] Blood [address] [place] [address]Voqa Free: [phone] A No. [id number] [facility] (in units), 1 Units 2023-02-14 02:07:54 Test Item Value Reference Range Interpretation Comments Cross Match Result Compatible (test code = 4409) ISBT Blood Type Code 5100 (test code = 147618) Unit Blood Type (test O Pos code = 4410) Unit Number (test [id number] code = 4411) Blood Expiration Date 941289049752 & Time (test code = 043619) Status Information Issued (test code = 4412) Product Red Blood Cells Identification (test code = 4413) Product Code (test P0955K35 Performed at [facility] code = 4414) Laboratory Services - [facility] Blood [address] [place] [address] Sonia Merritt [address]Vmuj Free: [phone] A No. [id number] [facility] + Lactic [id number] 02:06:48 Test Item Value Reference Range Interpretation Comments PH (test code = 2) 7.23 7.35-7.45 L PCO2 (test code = 51 See_Comment H [Automate d 9397067924) message] The sy stem which generated this result transmitted reference range : 35 - 45 mmHg. The reference range was not used to interpret this result as normal/abnormal . PO2 (test code = 88 See_Comment [Automated 9949879804) message] The sy stem which generated this result transmitted reference range : 80 - 100 mmHg. The reference range was not used to interpret this result as normal/abnormal . HCO3 (test code = 21 See_Comment L [Automate d 7662732456) message] The sy stem which generated this result transmitted reference range : 22 - 26 mEq/L. The reference range was not used to interpret this result as normal/abnormal . BE (test code = -5.9 See_Comment L [Automated 3504900163) message] The sy stem which generated this result transmitted reference range : -3.0 - 3.0 mEq/ L. The reference r kyra was not used to interpret this result as normal/abnormal . THB (test code = 8.5 g/dL 13.5-18.0 L 9156075495) %O2HB (test code = 94.1 % 94.0-99.0 4711825884) %COHB ART (test code = 0.6 % 0.0-1.5 3092160709) %METHB ART (test code = 0.1 % 0.4-1.5 L 8618963088) VOL%O2 ART (test code = 11.4 % 15.0-23.0 L 3274432356) NA (test code = 134 mmol/L 135-145 L 7284854530) K+ (test code = 3.8 mmol/L 3.5-5.0 3048873516) AC CA IONZ (test code = 3.80 mg/dL 4.50-5.30 L 8108409044) GLUCOSE (test code = 183 mg/dL 70-110 H 3892561125) LACTIC ACID (test code 4.09 mmol/L 0.50-2.20 H = 3123543780) Lab Interpretation Abnormal (test code = 54144-6) [facility] + Lactic [id number] 02:06:48 Test Item Value Reference Range Interpretation Comments PH (test code = 2) 7.23 7.35-7.45 L PCO2 (test code = 51 See_Comment H [Automate d 3567379004) message] The sy stem which generated this result transmitted reference range : 35 - 45 mmHg. The reference range was not used to interpret this result as normal/abnormal . PO2 (test code = 88 See_Comment [Automated 7654374640) message] The sy stem which generated this result transmitted reference range : 80 - 100 mmHg. The reference range was not used to interpret this result as normal/abnormal . HCO3 (test code = 21 See_Comment L [Automate d 9996446461) message] The sy stem which generated this result transmitted reference range : 22 - 26 mEq/L. The reference range was not used to interpret this result as normal/abnormal . BE (test code = -5.9 See_Comment L [Automated [id number]) message] The sy stem which generated this result transmitted reference range : -3.0 - 3.0 mEq/ L. The reference r kyra was not used to interpret this result as normal/abnormal . THB (test code = 8.5 g/dL 13.5-18.0 L 4190616687) %O2HB (test code = 94.1 % 94.0-99.0 8554737451) %COHB ART (test code = 0.6 % 0.0-1.5 9441484115) %METHB ART (test code = 0.1 % 0.4-1.5 L 1619385492) VOL%O2 ART (test code = 11.4 % 15.0-23.0 L 1964838633) NA (test code = 134 mmol/L 135-145 L 9805021331) K+ (test code = 3.8 mmol/L 3.5-5.0 0172639523) AC CA IONZ (test code = 3.80 mg/dL 4.50-5.30 L 2174905402) GLUCOSE (test code = 183 mg/dL 70-110 H 9157279072) LACTIC ACID (test code 4.09 mmol/L 0.50-2.20 H = 3438349508) Lab Interpretation Abnormal (test code = 07893-6) [facility] [id number] 02:06:48 Test Item Value Reference Range Interpretation Comments PH (test code = 2) 7.23 7.35-7.45 L PCO2 (test code = 51 See_Comment H [Automate d [id number]) message] The sy stem which generated this result transmitted reference range : 35 - 45 mmHg. The reference range was not used to interpret this result as normal/abnormal . PO2 (test code = 88 See_Comment [Automated [id number]) message] The sy stem which generated this result transmitted reference range : 80 - 100 mmHg. The reference range was not used to interpret this result as normal/abnormal . HCO3 (test code = 21 See_Comment L [Automate d 4448141353) message] The sy stem which generated this result transmitted reference range : 22 - 26 mEq/L. The reference range was not used to interpret this result as normal/abnormal . BE (test code = -5.9 See_Comment L [Automated 8244408137) message] The sy stem which generated this result transmitted reference range : -3.0 - 3.0 mEq/ L. The reference r kyra was not used to interpret this result as normal/abnormal . THB (test code = 8.5 g/dL 13.5-18.0 L 9766818607) %O2HB (test code = 94.1 % 94.0-99.0 7564748958) %COHB ART (test code = 0.6 % 0.0-1.5 1837148119) %METHB ART (test code = 0.1 % 0.4-1.5 L 0829333205) VOL%O2 ART (test code = 11.4 % 15.0-23.0 L 9769999339) NA (test code = 134 mmol/L 135-145 L 7252089218) K+ (test code = 3.8 mmol/L 3.5-5.0 2071497839) AC CA IONZ (test code = 3.80 mg/dL 4.50-5.30 L 0397968176) GLUCOSE (test code = 183 mg/dL 70-110 H 9714542537) LACTIC ACID (test code 4.09 mmol/L 0.50-2.20 H = 9205604408) Lab Interpretation Abnormal (test code = 53820-3) [facility] [id number] 02:02:10 Test Item Value Reference Range Interpretation Comments PROTIME PATIENT (test 17.2 See_Comment H [Auto mated message] code = 5964-2) The system [employer] generated this result transmitted ref erence range: 10.1 - 1 2.6 Seconds. The reference range was not used to int erpret this result as normal/abnormal . INR (test code = 6301-6) 1.5 Nor mal INR <1.1; Warfarin Therap eutic range 2.0 to 3. 0 or 2.5 to 3.5, dep ending upon the indica tions. Lab Interpretation (test Abnormal code = 75112-7) [facility] / [id number] 02:02:10 Test Item Value Reference Range Interpretation Comments PROTIME PATIENT (test 17.2 See_Comment H [Auto mated message] code = 5964-2) The system [employer] generated this result transmitted ref erence range: 10.1 - 1 2.6 Seconds. The reference range was not used to int erpret this result as normal/abnormal . INR (test code = 6301-6) 1.5 Nor mal INR <1.1; Warfarin Therap eutic range 2.0 to 3. 0 or 2.5 to 3.5, dep ending upon the indica tions. Lab Interpretation (test Abnormal code = 27665-3) [facility] / [id number] 02:02:10 Test Item Value Reference Range Interpretation Comments PROTIME PATIENT (test 17.2 See_Comment H [Auto mated message] code = 5964-2) The system [employer] generated this result transmitted ref erence range: 10.1 - 1 2.6 Seconds. The reference range was not used to int erpret this result as normal/abnormal . INR (test code = 6301-6) 1.5 Nor mal INR <1.1; Warfarin Therap eutic range 2.0 to 3. 0 or 2.5 to 3.5, dep ending upon the indica tions. Lab Interpretation (test Abnormal code = 95113-9) [facility] METABOLIC PANEL (NA, K, CL, CO2, GLUCOSE, BUN, CREATININE, CA)2023-02-14 01:46:48 Test Item Value Reference Range Interpretation Comments NA (test code = 132 mmol/L 135-145 L 0359476516) K (test code = 3.9 mmol/L 3.5-5.0 Slight 2243630596) hemolysis CL (test code = 105 mmol/L 98-108 4369093233) CO2 TOTAL (test code 20 mmol/L 23-31 L = 4751272235) AGAP (test code = 7 2-16 5841909481) BUN (test code = 27 mg/dL 7-23 H Slight 1564461695) hemolysis GLUCOSE (test code = 174 mg/dL 70-110 H 7316291979) CREATININE (test code 1.22 mg/dL 0.60-1.25 = 9928564606) CALCIUM (test code = 6.3 mg/dL 8.6-10.6 L 5603402946) eGFR (test code = 60.4 mL/min/1.73m2 4047006549) MIKAYLA (test code = MIKAYLA) Association of Glomerular Filtration Rate (GFR) and Staging of Kidney Disease* + -----+ --------+ +| GFR (mL/min/1.73 m2) ?| With Kidney Damage ?| ?Without Kidney Damage+ +------- +---- --+| ?>90 ?| ?Stage one ?| ? Normal ?+ ------+ ---------+--------- +| ?60-89 ?| ?Stage two ?| ? Decreased GFR ? + -----+ --------+ +| ?30-59 ?| ?Stage three ?| ? Stage three ? + -----+ --------+ +| ?15-29 ?| ?Stage four ? | ? Stage four ?+ ------+ ---------+--------- +| ?<15 (or dialysis) ? ?| ?Stage five ? | ? Stage five ?+ ------+ ---------+--------- + *Each stage assumes the associated GFR level has been in effect for at least three months. ?Stages 1 to 5, with or without kidney disease, indicate chronic kidney disease. Notes: Determination of stages one and two (with eGFR >59mL/min/1.73 m2) requires estimation of kidney damage for at least three months as defined by structural or functional abnormalities of the kidney, manifested by either:Pathological abnormalities or Markers of kidney damage (including abnormalities in the composition of the blood or urine or abnormalities in imaging tests). Lab Interpretation Abnormal (test code = 75874-0) [facility] (NA, K, CL, CO2, GLUCOSE, BUN, CREATININE, CA)2023-02-14 01:46:48 Test Item Value Reference Range Interpretation Comments NA (test code = 132 mmol/L 135-145 L 7628596610) K (test code = 3.9 mmol/L 3.5-5.0 Slight 1469916894) hemolysis CL (test code = 105 mmol/L 98-108 5578078806) CO2 TOTAL (test code 20 mmol/L 23-31 L = 8246395211) AGAP (test code = 7 2-16 4448670373) BUN (test code = 27 mg/dL 7-23 H Slight 6601153480) hemolysis GLUCOSE (test code = 174 mg/dL 70-110 H 8203838127) CREATININE (test code 1.22 mg/dL 0.60-1.25 = 9371344571) CALCIUM (test code = 6.3 mg/dL 8.6-10.6 L 7408285548) eGFR (test code = 60.4 mL/min/1.73m2 1744835818) MIKAYLA (test code = MIKAYLA) Association of Glomerular Filtration Rate (GFR) and Staging of Kidney Disease* + -----+ --------+ +| GFR (mL/min/1.73 m2) ?| With Kidney Damage ?| ?Without Kidney Damage+ +------- +---- --+| ?>90 ?| ?Stage one ?| ? Normal ?+ ------+ ---------+--------- +| ?60-89 ?| ?Stage two ?| ? Decreased GFR ? + -----+ --------+ +| ?30-59 ?| ?Stage three ?| ? Stage three ? + -----+ --------+ +| ?15-29 ?| ?Stage four ? | ? Stage four ?+ ------+ ---------+--------- +| ?<15 (or dialysis) ? ?| ?Stage five ? | ? Stage five ?+ ------+ ---------+--------- + *Each stage assumes the associated GFR level has been in effect for at least three months. ?Stages 1 to 5, with or without kidney disease, indicate chronic kidney disease. Notes: Determination of stages one and two (with eGFR >59mL/min/1.73 m2) requires estimation of kidney damage for at least three months as defined by structural or functional abnormalities of the kidney, manifested by either:Pathological abnormalities or Markers of kidney damage (including abnormalities in the composition of the blood or urine or abnormalities in imaging tests). Lab Interpretation Abnormal (test code = 28380-6) [facility] METABOLIC PANEL (NA, K, CL, CO2, GLUCOSE, BUN, CREATININE, CA)2023-02-14 01:46:48 Test Item Value Reference Range Interpretation Comments NA (test code = 132 mmol/L 135-145 L 9161529708) K (test code = 3.9 mmol/L 3.5-5.0 Slight 3340293489) hemolysis CL (test code = 105 mmol/L 98-108 9882893753) CO2 TOTAL (test code 20 mmol/L 23-31 L = 5893644107) AGAP (test code = 7 2-16 2264585100) BUN (test code = 27 mg/dL 7-23 H Slight 4318891993) hemolysis GLUCOSE (test code = 174 mg/dL 70-110 H 2918111668) CREATININE (test code 1.22 mg/dL 0.60-1.25 = 2854434272) CALCIUM (test code = 6.3 mg/dL 8.6-10.6 L 6169606510) eGFR (test code = 60.4 mL/min/1.73m2 6287797194) MIKAYLA (test code = MIKAYLA) Association of Glomerular Filtration Rate (GFR) and Staging of Kidney Disease* + -----+ --------+ +| GFR (mL/min/1.73 m2) ?| With Kidney Damage ?| ?Without Kidney Damage+ +------- +---- --+| ?>90 ?| ?Stage one ?| ? Normal ?+ ------+ ---------+--------- +| ?60-89 ?| ?Stage two ?| ? Decreased GFR ? + -----+ --------+ +| ?30-59 ?| ?Stage three ?| ? Stage three ? + -----+ --------+ +| ?15-29 ?| ?Stage four ? | ? Stage four ?+ ------+ ---------+--------- +| ?<15 (or dialysis) ? ?| ?Stage five ? | ? Stage five ?+ ------+ ---------+--------- + *Each stage assumes the associated GFR level has been in effect for at least three months. ?Stages 1 to 5, with or without kidney disease, indicate chronic kidney disease. Notes: Determination of stages one and two (with eGFR >59mL/min/1.73 m2) requires estimation of kidney damage for at least three months as defined by structural or functional abnormalities of the kidney, manifested by either:Pathological abnormalities or Markers of kidney damage (including abnormalities in the composition of the blood or urine or abnormalities in imaging tests). Lab Interpretation Abnormal (test code = 37426-0) [facility] + Lactic [id number] 01:46:02 Test Item Value Reference Range Interpretation Comments PH (test code = 2) 7.25 7.35-7.45 L PCO2 (test code = 47 See_Comment H [Automate d 8469033329) message] The sy stem which generated this result transmitted reference range : 35 - 45 mmHg. The reference range was not used to interpret this result as normal/abnormal . PO2 (test code = 95 See_Comment [Automated 7008913764) message] The sy stem which generated this result transmitted reference range : 80 - 100 mmHg. The reference range was not used to interpret this result as normal/abnormal . HCO3 (test code = 20 See_Comment L [Automate d 6460934059) message] The sy stem which generated this result transmitted reference range : 22 - 26 mEq/L. The reference range was not used to interpret this result as normal/abnormal . BE (test code = -7.1 See_Comment L [Automated 8146555368) message] The sy stem which generated this result transmitted reference range : -3.0 - 3.0 mEq/ L. The reference r kyra was not used to interpret this result as normal/abnormal . THB (test code = 8.3 g/dL 13.5-18.0 LL 5265688106) %O2HB (test code = 95.7 % 94.0-99.0 2131789196) %COHB ART (test code = 0.4 % 0.0-1.5 4018768795) %METHB ART (test code = 0.2 % 0.4-1.5 L 3868401433) VOL%O2 ART (test code = 11.3 % 15.0-23.0 L 5882421270) NA (test code = 134 mmol/L 135-145 L 0323758998) K+ (test code = 3.7 mmol/L 3.5-5.0 9940885590) AC CA IONZ (test code = 3.80 mg/dL 4.50-5.30 L 4209001678) GLUCOSE (test code = 167 mg/dL 70-110 H 3760501855) LACTIC ACID (test code 3.83 mmol/L 0.50-2.20 H = 7617402142) Lab Interpretation Abnormal (test code = 09537-5) [facility] + Lactic [id number] 01:46:02 Test Item Value Reference Range Interpretation Comments PH (test code = 2) 7.25 7.35-7.45 L PCO2 (test code = 47 See_Comment H [Automate d 7031029656) message] The sy stem which generated this result transmitted reference range : 35 - 45 mmHg. The reference range was not used to interpret this result as normal/abnormal . PO2 (test code = 95 See_Comment [Automated 6478189920) message] The sy stem which generated this result transmitted reference range : 80 - 100 mmHg. The reference range was not used to interpret this result as normal/abnormal . HCO3 (test code = 20 See_Comment L [Automate d 2672649502) message] The sy stem which generated this result transmitted reference range : 22 - 26 mEq/L. The reference range was not used to interpret this result as normal/abnormal . BE (test code = -7.1 See_Comment L [Automated 8176318215) message] The sy stem which generated this result transmitted reference range : -3.0 - 3.0 mEq/ L. The reference r kyra was not used to interpret this result as normal/abnormal . THB (test code = 8.3 g/dL 13.5-18.0 LL 8162890426) %O2HB (test code = 95.7 % 94.0-99.0 6766952337) %COHB ART (test code = 0.4 % 0.0-1.5 6999984012) %METHB ART (test code = 0.2 % 0.4-1.5 L 6400620400) VOL%O2 ART (test code = 11.3 % 15.0-23.0 L 1529332320) NA (test code = 134 mmol/L 135-145 L 6456068815) K+ (test code = 3.7 mmol/L 3.5-5.0 2456885356) AC CA IONZ (test code = 3.80 mg/dL 4.50-5.30 L 5998339904) GLUCOSE (test code = 167 mg/dL 70-110 H 1164404914) LACTIC ACID (test code 3.83 mmol/L 0.50-2.20 H = 8744625209) Lab Interpretation Abnormal (test code = 88553-1) [facility] + Lactic [id number] 01:46:02 Test Item Value Reference Range Interpretation Comments PH (test code = 2) 7.25 7.35-7.45 L PCO2 (test code = 47 See_Comment H [Automate d 5889831335) message] The sy stem which generated this result transmitted reference range : 35 - 45 mmHg. The reference range was not used to interpret this result as normal/abnormal . PO2 (test code = 95 See_Comment [Automated 4510433269) message] The sy stem which generated this result transmitted reference range : 80 - 100 mmHg. The reference range was not used to interpret this result as normal/abnormal . HCO3 (test code = 20 See_Comment L [Automate d 5506595706) message] The sy stem which generated this result transmitted reference range : 22 - 26 mEq/L. The reference range was not used to interpret this result as normal/abnormal . BE (test code = -7.1 See_Comment L [Automated 5394072228) message] The sy stem which generated this result transmitted reference range : -3.0 - 3.0 mEq/ L. The reference r kyra was not used to interpret this result as normal/abnormal . THB (test code = 8.3 g/dL 13.5-18.0 LL 4370269739) %O2HB (test code = 95.7 % 94.0-99.0 3242181579) %COHB ART (test code = 0.4 % 0.0-1.5 5240535837) %METHB ART (test code = 0.2 % 0.4-1.5 L 9584005899) VOL%O2 ART (test code = 11.3 % 15.0-23.0 L 4038221878) NA (test code = 134 mmol/L 135-145 L 3319372854) K+ (test code = 3.7 mmol/L 3.5-5.0 1380035970) AC CA IONZ (test code = 3.80 mg/dL 4.50-5.30 L 8454716185) GLUCOSE (test code = 167 mg/dL 70-110 H 5669381531) LACTIC ACID (test code 3.83 mmol/L 0.50-2.20 H = 0345169159) Lab Interpretation Abnormal (test code = 09802-9) [facility] / [id number] 01:44:11 Test Item Value Reference Range Interpretation Comments PROTIME PATIENT (test 17.1 See_Comment H [Auto mated message] code = 5964-2) The system [employer] generated this result transmitted ref erence range: 10.1 - 1 2.6 Seconds. The reference range was not used to int erpret this result as normal/abnormal . INR (test code = 6301-6) 1.5 Nor mal INR <1.1; Warfarin Therap eutic range 2.0 to 3. 0 or 2.5 to 3.5, dep ending upon the indica tions. Lab Interpretation (test Abnormal code = 58535-6) [facility] [id number] 01:44:11 Test Item Value Reference Range Interpretation Comments APTT Patient (test code 45 See_Comment H [Au tomated message] = 3173-2) The system [employer] generated this result transmitted ref erence range: 26 - 36 Seconds. The reference range was not used to int erpret this result as normal/abnormal . Lab Interpretation (test Abnormal code = 30811-1) [facility] 01:44:11 Test Item Value Reference Range Interpretation Comments Fibrinogen (test code = 5591276857) 172 mg/dL 167-453 Lab Interpretation (test code = Normal 87018-3) [facility] / [id number] 01:44:11 Test Item Value Reference Range Interpretation Comments PROTIME PATIENT (test 17.1 See_Comment H [Auto mated message] code = 5964-2) The system [employer] generated this result transmitted ref erence range: 10.1 - 1 2.6 Seconds. The reference range was not used to int erpret this result as normal/abnormal . INR (test code = 6301-6) 1.5 Nor mal INR <1.1; Warfarin Therap eutic range 2.0 to 3. 0 or 2.5 to 3.5, dep ending upon the indica tions. Lab Interpretation (test Abnormal code = 85811-9) [facility] [id number] 01:44:11 Test Item Value Reference Range Interpretation Comments APTT Patient (test code 45 See_Comment H [Au tomated message] = 3173-2) The system [employer] generated this result transmitted ref erence range: 26 - 36 Seconds. The reference range was not used to int erpret this result as normal/abnormal . Lab Interpretation (test Abnormal code = 03241-0) [facility] 01:44:11 Test Item Value Reference Range Interpretation Comments Fibrinogen (test code = 3074979215) 172 mg/dL 167-453 Lab Interpretation (test code = Normal 07661-8) [facility] / [id number] 01:44:11 Test Item Value Reference Range Interpretation Comments PROTIME PATIENT (test 17.1 See_Comment H [Auto mated message] code = 5964-2) The system ich generated this result transmitted ref erence range: 10.1 - 1 2.6 Seconds. The reference range was not used to int erpret this result as normal/abnormal . INR (test code = 6301-6) 1.5 Nor mal INR <1.1; Warfarin Therap eutic range 2.0 to 3. 0 or 2.5 to 3.5, dep ending upon the indica tions. Lab Interpretation (test Abnormal code = 88471-1) [facility] [id number] 01:44:11 Test Item Value Reference Range Interpretation Comments APTT Patient (test code 45 See_Comment H [Au tomated message] = 3173-2) The system ic h generated this result transmitted ref erence range: 26 - 36 Seconds. The reference range was not used to int erpret this result as normal/abnormal . Lab Interpretation (test Abnormal code = 69206-0) [facility] 01:44:11 Test Item Value Reference Range Interpretation Comments Fibrinogen (test code = 3042617577) 172 mg/dL 167-453 Lab Interpretation (test code = Normal 62466-2) [facility] + Lactic [id number] 01:35:57 Test Item Value Reference Range Interpretation Comments PH (test code = 2) 7.28 7.35-7.45 L PCO2 (test code = 40 See_Comment [Automate d 8091222774) message] The sy stem which generated this result transmitted reference range : 35 - 45 mmHg. The reference range was not used to interpret this result as normal/abnormal . PO2 (test code = 50 See_Comment L [Automated 1105200510) message] The sy stem which generated this result transmitted reference range : 80 - 100 mmHg. The reference range was not used to interpret this result as normal/abnormal . HCO3 (test code = 19 See_Comment L [Automate d 9396385763) message] The sy stem which generated this result transmitted reference range : 22 - 26 mEq/L. The reference range was not used to interpret this result as normal/abnormal . BE (test code = -7.7 See_Comment L [Automated 6936392378) message] The sy stem which generated this result transmitted reference range : -3.0 - 3.0 mEq/ L. The reference r kyra was not used to interpret this result as normal/abnormal . THB (test code = 10.0 g/dL 13.5-18.0 L 5745034135) %O2HB (test code = 84.6 % 94.0-99.0 L 6861089185) %COHB ART (test code = 0.2 % 0.0-1.5 5071642901) %METHB ART (test code = 0.1 % 0.4-1.5 L 6264258965) VOL%O2 ART (test code = 11.9 % 15.0-23.0 L 9613804647) NA (test code = 134 mmol/L 135-145 L 3863513814) K+ (test code = 3.8 mmol/L 3.5-5.0 4894709934) AC CA IONZ (test code = 4.10 mg/dL 4.50-5.30 L 2393739493) GLUCOSE (test code = 172 mg/dL 70-110 H 3685448378) LACTIC ACID (test code 4.08 mmol/L 0.50-2.20 H = 7735522959) Lab Interpretation Abnormal (test code = 80603-8) [facility] + Lactic [id number] 01:35:57 Test Item Value Reference Range Interpretation Comments PH (test code = 2) 7.28 7.35-7.45 L PCO2 (test code = 40 See_Comment [Automate d 1947596383) message] The sy stem which generated this result transmitted reference range : 35 - 45 mmHg. The reference range was not used to interpret this result as normal/abnormal . PO2 (test code = 50 See_Comment L [Automated 5620696379) message] The sy stem which generated this result transmitted reference range : 80 - 100 mmHg. The reference range was not used to interpret this result as normal/abnormal . HCO3 (test code = 19 See_Comment L [Automate d 5404434196) message] The sy stem which generated this result transmitted reference range : 22 - 26 mEq/L. The reference range was not used to interpret this result as normal/abnormal . BE (test code = -7.7 See_Comment L [Automated 9318659291) message] The sy stem which generated this result transmitted reference range : -3.0 - 3.0 mEq/ L. The reference r kyra was not used to interpret this result as normal/abnormal . THB (test code = 10.0 g/dL 13.5-18.0 L 1377218891) %O2HB (test code = 84.6 % 94.0-99.0 L 6503191221) %COHB ART (test code = 0.2 % 0.0-1.5 7879752901) %METHB ART (test code = 0.1 % 0.4-1.5 L 8569121436) VOL%O2 ART (test code = 11.9 % 15.0-23.0 L 3075103269) NA (test code = 134 mmol/L 135-145 L 9513963461) K+ (test code = 3.8 mmol/L 3.5-5.0 7984959926) AC CA IONZ (test code = 4.10 mg/dL 4.50-5.30 L 2268439484) GLUCOSE (test code = 172 mg/dL 70-110 H 2757459288) LACTIC ACID (test code 4.08 mmol/L 0.50-2.20 H = 5074371295) Lab Interpretation Abnormal (test code = 38372-1) [facility] + Lactic [id number] 01:35:57 Test Item Value Reference Range Interpretation Comments PH (test code = 2) 7.28 7.35-7.45 L PCO2 (test code = 40 See_Comment [Automate d 1242255991) message] The sy stem which generated this result transmitted reference range : 35 - 45 mmHg. The reference range was not used to interpret this result as normal/abnormal . PO2 (test code = 50 See_Comment L [Automated 4124659610) message] The sy stem which generated this result transmitted reference range : 80 - 100 mmHg. The reference range was not used to interpret this result as normal/abnormal . HCO3 (test code = 19 See_Comment L [Automate d 5432609121) message] The sy stem which generated this result transmitted reference range : 22 - 26 mEq/L. The reference range was not used to interpret this result as normal/abnormal . BE (test code = -7.7 See_Comment L [Automated 1565909220) message] The sy stem which generated this result transmitted reference range : -3.0 - 3.0 mEq/ L. The reference r kyra was not used to interpret this result as normal/abnormal . THB (test code = 10.0 g/dL 13.5-18.0 L 6056935300) %O2HB (test code = 84.6 % 94.0-99.0 L 9115835293) %COHB ART (test code = 0.2 % 0.0-1.5 3278740864) %METHB ART (test code = 0.1 % 0.4-1.5 L 6370300591) VOL%O2 ART (test code = 11.9 % 15.0-23.0 L 6421286892) NA (test code = 134 mmol/L 135-145 L 2074946241) K+ (test code = 3.8 mmol/L 3.5-5.0 8300175405) AC CA IONZ (test code = 4.10 mg/dL 4.50-5.30 L 9923537134) GLUCOSE (test code = 172 mg/dL 70-110 H 6599661776) LACTIC ACID (test code 4.08 mmol/L 0.50-2.20 H = 1150037530) Lab Interpretation Abnormal (test code = 61419-4) [facility] [id number] 01:30:03 Test Item Value Reference Range Interpretation Comments WBC (test code = 15.81 See_Comment H [Automated 6690-2) message] The system which generated this result transmit che reference range : 4.20 - 10.70 10*3/?L. The reference range was not used to interpret this result as normal/abnormal . RBC (test code = 3.13 See_Comment L [Automated 789-8) message] The system which generated this result transmit che reference range : 4.26 - 5.52 10*6/?L. The reference range was not used to interpret this result as normal/abnormal . HGB (test code = 9.0 g/dL 12.2-16.4 L 718-7) HCT (test code = 27.2 % 38.4-49.3 L 4544-3) MCV (test code = 86.9 fL 81.7-95.6 787-2) MCH (test code = 28.8 pg 26.1-32.7 785-6) MCHC (test code = 33.1 g/dL 31.2-35.0 786-4) RDW-SD (test code = 43.9 fL 38.5-51.6 07677-0) RDW-CV (test code = 14.1 % 12.1-15.4 788-0) PLT (test code = 109 See_Comment L [Automated 777-3) message] The system which generated this result transmit che reference range : 150 - 328 10*3/ ?L. The reference range was not u sed to interpret th is result as normal/abnormal . MPV (test code = 10.3 fL 9.8-13.0 18087-1) NRBC/100 WBC (test 0.0 See_Comment [Automat ed code = 9179258843) message] The system which generated this result transmit che reference range : 0.0 - 10.0 /100 WBCs. The reference range was not used to interpret this result as normal/abnormal . NRBC x10^3 (test code See_Comment [Auto mated = 0590018695) message] The system which generated this result transmit che reference range : 10*3/?L. The reference range was not used to interpret this result as normal/abnormal . GRAN MAT (NEUT) % 82.1 % (test code = 770-8) IMM GRAN % (test code 1.00 % = 5309554366) LYMPH % (test code = 8.0 % 736-9) MONO % (test code = 8.7 % 5905-5) EOS % (test code = 0.1 % 713-8) BASO % (test code = 0.1 % 706-2) GRAN MAT x10^3(ANC) 12.97 10*3/uL 1.99-6.95 H (test code = 2353997937) IMM GRAN x10^3 (test 0.16 10*3/uL 0.00-0.06 H code = 5126339725) LYMPH x10^3 (test code 1.27 10*3/uL 1.09-3.23 = 731-0) MONO x10^3 (test code 1.38 10*3/uL 0.36-1.02 H = 742-7) EOS x10^3 (test code = 0.06-0.53 L 711-2) BASO x10^3 (test code 0.01-0.09 = 704-7) Lab Interpretation Abnormal (test code = 42700-3) [facility] WITH [id number] 01:30:03 Test Item Value Reference Range Interpretation Comments WBC (test code = 15.81 See_Comment H [Automated 6690-2) message] The system which generated this result transmit che reference range : 4.20 - 10.70 10*3/?L. The reference range was not used to interpret this result as normal/abnormal . RBC (test code = 3.13 See_Comment L [Automated 789-8) message] The system which generated this result transmit che reference range : 4.26 - 5.52 10*6/?L. The reference range was not used to interpret this result as normal/abnormal . HGB (test code = 9.0 g/dL 12.2-16.4 L 718-7) HCT (test code = 27.2 % 38.4-49.3 L 4544-3) MCV (test code = 86.9 fL 81.7-95.6 787-2) MCH (test code = 28.8 pg 26.1-32.7 785-6) MCHC (test code = 33.1 g/dL 31.2-35.0 786-4) RDW-SD (test code = 43.9 fL 38.5-51.6 54221-2) RDW-CV (test code = 14.1 % 12.1-15.4 788-0) PLT (test code = 109 See_Comment L [Automated 777-3) message] The system which generated this result transmit che reference range : 150 - 328 10*3/ ?L. The reference range was not u sed to interpret th is result as normal/abnormal . MPV (test code = 10.3 fL 9.8-13.0 83319-8) NRBC/100 WBC (test 0.0 See_Comment [Automat ed code = 0718939162) message] The system which generated this result transmit che reference range : 0.0 - 10.0 /100 WBCs. The reference range was not used to interpret this result as normal/abnormal . NRBC x10^3 (test code See_Comment [Auto mated = 2203777305) message] The system which generated this result transmit che reference range : 10*3/?L. The reference range was not used to interpret this result as normal/abnormal . GRAN MAT (NEUT) % 82.1 % (test code = 770-8) IMM GRAN % (test code 1.00 % = 8491552969) LYMPH % (test code = 8.0 % 736-9) MONO % (test code = 8.7 % 5905-5) EOS % (test code = 0.1 % 713-8) BASO % (test code = 0.1 % 706-2) GRAN MAT x10^3(ANC) 12.97 10*3/uL 1.99-6.95 H (test code = 9423580667) IMM GRAN x10^3 (test 0.16 10*3/uL 0.00-0.06 H code = 5392841371) LYMPH x10^3 (test code 1.27 10*3/uL 1.09-3.23 = 731-0) MONO x10^3 (test code 1.38 10*3/uL 0.36-1.02 H = 742-7) EOS x10^3 (test code = 0.06-0.53 L 711-2) BASO x10^3 (test code 0.01-0.09 = 704-7) Lab Interpretation Abnormal (test code = 72850-4) [facility] WITH [id number] 01:30:03 Test Item Value Reference Range Interpretation Comments WBC (test code = 15.81 See_Comment H [Automated 1390-2) message] The system which generated this result transmit che reference range : 4.20 - 10.70 10*3/?L. The reference range was not used to interpret this result as normal/abnormal . RBC (test code = 3.13 See_Comment L [Automated 789-8) message] The system which generated this result transmit che reference range : 4.26 - 5.52 10*6/?L. The reference range was not used to interpret this result as normal/abnormal . HGB (test code = 9.0 g/dL 12.2-16.4 L 718-7) HCT (test code = 27.2 % 38.4-49.3 L 4544-3) MCV (test code = 86.9 fL 81.7-95.6 787-2) MCH (test code = 28.8 pg 26.1-32.7 785-6) MCHC (test code = 33.1 g/dL 31.2-35.0 786-4) RDW-SD (test code = 43.9 fL 38.5-51.6 48492-7) RDW-CV (test code = 14.1 % 12.1-15.4 788-0) PLT (test code = 109 See_Comment L [Automated 777-3) message] The system which generated this result transmit che reference range : 150 - 328 10*3/ ?L. The reference range was not u sed to interpret th is result as normal/abnormal . MPV (test code = 10.3 fL 9.8-13.0 70737-7) NRBC/100 WBC (test 0.0 See_Comment [Automat ed code = 2859255375) message] The system which generated this result transmit che reference range : 0.0 - 10.0 /100 WBCs. The reference range was not used to interpret this result as normal/abnormal . NRBC x10^3 (test code See_Comment [Auto mated = 0547993236) message] The system which generated this result transmit che reference range : 10*3/?L. The reference range was not used to interpret this result as normal/abnormal . GRAN MAT (NEUT) % 82.1 % (test code = 770-8) IMM GRAN % (test code 1.00 % = 9384627205) LYMPH % (test code = 8.0 % 736-9) MONO % (test code = 8.7 % 5905-5) EOS % (test code = 0.1 % 713-8) BASO % (test code = 0.1 % 706-2) GRAN MAT x10^3(ANC) 12.97 10*3/uL 1.99-6.95 H (test code = 5787753441) IMM GRAN x10^3 (test 0.16 10*3/uL 0.00-0.06 H code = 5366644433) LYMPH x10^3 (test code 1.27 10*3/uL 1.09-3.23 = 731-0) MONO x10^3 (test code 1.38 10*3/uL 0.36-1.02 H = 742-7) EOS x10^3 (test code = 0.06-0.53 L 711-2) BASO x10^3 (test code 0.01-0.09 = 704-7) Lab Interpretation Abnormal (test code = 56717-8) [facility] WITHOUT [id number] 01:27:05 Test Item Value Reference Range Interpretation Comments WBC (test code = 6690-2) 15.05 See_Comment H [A utomated message] The system [employer] generated this result transmit che reference range : 4.20 - 10.70 10*3/?L. The reference range was not used to interpret this result as normal/abnormal . RBC (test code = 789-8) 3.05 See_Comment L [Au tomated message] The system [employer] generated this result transmit che reference range : 4.26 - 5.52 10* 6/?L. The reference r kyra was not used to interpret this result as normal/abnormal . HGB (test code = 718-7) 8.5 g/dL 12.2-16.4 L HCT (test code = 4544-3) 26.4 % 38.4-49.3 L MCH (test code = 785-6) 27.9 pg 26.1-32.7 MCV (test code = 787-2) 86.6 fL 81.7-95.6 MCHC (test code = 786-4) 32.2 g/dL 31.2-35.0 PLT (test code = 777-3) 119 See_Comment L [Au tomated message] The system [employer] generated this result transmit che reference range : 150 - 328 10*3/?L. The reference range was not used to interpret this result as normal/abnormal . MPV (test code = 10.4 fL 9.8-13.0 88059-2) RDW-CV (test code = 14.0 % 12.1-15.4 788-0) RDW-SD (test code = 44.1 fL 38.5-51.6 37149-1) NRBC x10^3 (test code = See_Comment [Au tomated message] 6108103420) The system [employer] generated this result transmit che reference range : 10*3/?L. The reference range was not used to interpret this result as normal/abnormal . NRBC/100 WBC (test code 0.0 See_Comment [Au tomated message] = 2592114090) The system [employer] generated this result transmit che reference range : 0.0 - 10.0 /100 WBC s. The reference r kyra was not used to interpret this result as normal/abnormal . IPF % (test code = 9462102211) Lab Interpretation (test Abnormal code = 72776-4) [facility] WITHOUT [id number] 01:27:05 Test Item Value Reference Range Interpretation Comments WBC (test code = 6690-2) 15.05 See_Comment H [A utomated message] The system [employer] generated this result transmit che reference range : 4.20 - 10.70 10*3/?L. The reference range was not used to interpret this result as normal/abnormal . RBC (test code = 789-8) 3.05 See_Comment L [Au tomated message] The system [employer] generated this result transmit che reference range : 4.26 - 5.52 10* 6/?L. The reference r kyra was not used to interpret this result as normal/abnormal . HGB (test code = 718-7) 8.5 g/dL 12.2-16.4 L HCT (test code = 4544-3) 26.4 % 38.4-49.3 L MCH (test code = 785-6) 27.9 pg 26.1-32.7 MCV (test code = 787-2) 86.6 fL 81.7-95.6 MCHC (test code = 786-4) 32.2 g/dL 31.2-35.0 PLT (test code = 777-3) 119 See_Comment L [Au tomated message] The system [employer] generated this result transmit che reference range : 150 - 328 10*3/?L. The reference range was not used to interpret this result as normal/abnormal . MPV (test code = 10.4 fL 9.8-13.0 29240-2) RDW-CV (test code = 14.0 % 12.1-15.4 788-0) RDW-SD (test code = 44.1 fL 38.5-51.6 76350-4) NRBC x10^3 (test code = See_Comment [Au tomated message] 3314505130) The system [employer] generated this result transmit che reference range : 10*3/?L. The reference range was not used to interpret this result as normal/abnormal . NRBC/100 WBC (test code 0.0 See_Comment [Au tomated message] = 5747791739) The system [employer] generated this result transmit che reference range : 0.0 - 10.0 /100 WBC s. The reference r kyra was not used to interpret this result as normal/abnormal . IPF % (test code = 7103741950) Lab Interpretation (test Abnormal code = 55331-4) [facility] WITHOUT [id number] 01:27:05 Test Item Value Reference Range Interpretation Comments WBC (test code = 6690-2) 15.05 See_Comment H [A utomated message] The system [employer] generated this result transmit che reference range : 4.20 - 10.70 10*3/?L. The reference range was not used to interpret this result as normal/abnormal . RBC (test code = 789-8) 3.05 See_Comment L [Au tomated message] The system [employer] generated this result transmit che reference range : 4.26 - 5.52 10* 6/?L. The reference r kyra was not used to interpret this result as normal/abnormal . HGB (test code = 718-7) 8.5 g/dL 12.2-16.4 L HCT (test code = 4544-3) 26.4 % 38.4-49.3 L MCH (test code = 785-6) 27.9 pg 26.1-32.7 MCV (test code = 787-2) 86.6 fL 81.7-95.6 MCHC (test code = 786-4) 32.2 g/dL 31.2-35.0 PLT (test code = 777-3) 119 See_Comment L [Au tomated message] The system [employer] generated this result transmit che reference range : 150 - 328 10*3/?L. The reference range was not used to interpret this result as normal/abnormal . MPV (test code = 10.4 fL 9.8-13.0 39493-6) RDW-CV (test code = 14.0 % 12.1-15.4 788-0) RDW-SD (test code = 44.1 fL 38.5-51.6 06572-8) NRBC x10^3 (test code = See_Comment [Au tomated message] 1441465006) The system [employer] generated this result transmit che reference range : 10*3/?L. The reference range was not used to interpret this result as normal/abnormal . NRBC/100 WBC (test code 0.0 See_Comment [Au tomated message] = 1168496477) The system [employer] generated this result transmit che reference range : 0.0 - 10.0 /100 WBC s. The reference r kyra was not used to interpret this result as normal/abnormal . IPF % (test code = 0138947245) Lab Interpretation (test Abnormal code = 53784-1) [facility] Packed RBC (in units), 2 Units 2023-02-14 01:14:31 Test Item Value Reference Range Interpretation Comments Cross Match Result Compatible (test code = 4409) ISBT Blood Type Code 5100 (test code = 743384) Unit Blood Type (test O Pos code = 4410) Unit Number (test [id number] code = 4411) Blood Expiration Date 455996595541 & Time (test code = 699970) Status Information Issued (test code = 4412) Product Red Blood Cells Identification (test code = 4413) Product Code (test [id number] Performed at [facility] code = 4414) Laboratory Services - [facility] Blood [address] [place] [address]Eett Free: [phone] A No. [id number] [facility] Packed RBC (in units), 2 Units 2023-02-14 01:14:31 Test Item Value Reference Range Interpretation Comments Cross Match Result Compatible (test code = 4409) ISBT Blood Type Code 5100 (test code = 244170) Unit Blood Type (test O Pos code = 4410) Unit Number (test [id number] code = 4411) Blood Expiration Date & Time (test code = 405424) Status Information Issued (test code = 4412) Product Red Blood Cells Identification (test code = 4413) Product Code (test [id number] Performed at [facility] code = 4414) Laboratory Services - [facility] Blood [address] [address]Eicp Free: [phone] A No. [id number] [facility] Packed RBC (in units), 2 Units 2023-02-14 01:14:31 Test Item Value Reference Range Interpretation Comments Cross Match Result Compatible (test code = 4409) ISBT Blood Type Code 5100 (test code = 578612) Unit Blood Type (test O Pos code = 4410) Unit Number (test [id number] code = 4411) Blood Expiration Date 293020324696 & Time (test code = 211084) Status Information Issued (test code = 4412) Product Red Blood Cells Identification (test code = 4413) Product Code (test [id number] Performed at [facility] code = 4414) Laboratory Services - [facility] Blood [address] [address]Utqv Free: [phone] A No. [id number] [facility] ACUTE CARE [id number] 00:56:03 Test Item Value Reference Range Interpretation Comments PH (test code = 2) 7.30 7.35-7.45 L PCO2 (test code = 46 See_Comment H [Automate d message] 2036954853) The system [employer] generated this result transmit che reference range : 35 - 45 mmHg. The reference range was not used to interpret this result as normal/abnormal . PO2 (test code = 112 See_Comment H [Automated message] 6248244543) The system [employer] generated this result transmit che reference range : 80 - 100 mmHg. The reference range was not used to interpret this result as normal/abnormal . BE (test code = -4.0 See_Comment L [Automated message] 9279099884) The system [employer] generated this result transmit che reference range : -3.0 - 3.0 mEq/ L. The reference r kyra was not used to interpret this result as normal/abnormal . HCO3 (test code = 22 See_Comment [Automate d message] 4002266132) The system [employer] generated this result transmit che reference range : 22 - 26 mEq/L. The reference range was not used to interpret this result as normal/abnormal . %O2HB (test code = 98.0 % 95.0-98.0 6999444944) NA (test code = 140 mmol/L 135-145 2251130539) K+ (test code = 3.3 mmol/L 3.5-5.0 L 8671959257) AC CA IONZ (test code = 4.00 mg/dL 4.50-5.30 L 7996423187) GLUCOSE (test code = 180 mg/dL 70-110 H 0134776019) AC Hematocrit (test 20 See_Comment LL [Automa che message] code = 8549378495) The syste m which generated this result transmit che reference range : 40 - 54 VOL %. The reference range was not used to interpret this result as normal/abnormal . THB (test code = 6.8 g/dL 13.5-18.0 LL 3366093043) AC TC02 (test code = 24 mmol/L See_Comment [Autom ated message] 5909123146) The system [employer] generated this result transmit che reference range : 23-27 mmol/L. T he reference range was not used to interpret this result as normal/abnormal . Lab Interpretation Abnormal (test code = 48173-9) [facility] ACUTE CARE [id number] 00:56:03 Test Item Value Reference Range Interpretation Comments PH (test code = 2) 7.30 7.35-7.45 L PCO2 (test code = 46 See_Comment H [Automate d message] 4800081026) The system [employer] generated this result transmit che reference range : 35 - 45 mmHg. The reference range was not used to interpret this result as normal/abnormal . PO2 (test code = 112 See_Comment H [Automated message] 1589772715) The system [employer] generated this result transmit che reference range : 80 - 100 mmHg. The reference range was not used to interpret this result as normal/abnormal . BE (test code = -4.0 See_Comment L [Automated message] 1424327096) The system [employer] generated this result transmit che reference range : -3.0 - 3.0 mEq/ L. The reference r kyra was not used to interpret this result as normal/abnormal . HCO3 (test code = 22 See_Comment [Automate d message] 8196324761) The system [employer] generated this result transmit che reference range : 22 - 26 mEq/L. The reference range was not used to interpret this result as normal/abnormal . %O2HB (test code = 98.0 % 95.0-98.0 0911597870) NA (test code = 140 mmol/L 135-145 6328471966) K+ (test code = 3.3 mmol/L 3.5-5.0 L 3707834142) AC CA IONZ (test code = 4.00 mg/dL 4.50-5.30 L 4462635372) GLUCOSE (test code = 180 mg/dL 70-110 H 7622750126) AC Hematocrit (test 20 See_Comment LL [Automa che message] code = 0586080319) The syste m which generated this result transmit che reference range : 40 - 54 VOL %. The reference range was not used to interpret this result as normal/abnormal . THB (test code = 6.8 g/dL 13.5-18.0 LL 0372279153) AC TC02 (test code = 24 mmol/L See_Comment [Autom ated message] 5538247896) The system [employer] generated this result transmit che reference range : 23-27 mmol/L. T he reference range was not used to interpret this result as normal/abnormal . Lab Interpretation Abnormal (test code = 40631-1) [facility] ACUTE CARE [id number] 00:56:03 Test Item Value Reference Range Interpretation Comments PH (test code = 2) 7.30 7.35-7.45 L PCO2 (test code = 46 See_Comment H [Automate d message] 4667921170) The system whic h generated this result transmit che reference range : 35 - 45 mmHg. The reference range was not used to interpret this result as normal/abnormal . PO2 (test code = 112 See_Comment H [Automated message] 6899396449) The system [employer] generated this result transmit che reference range : 80 - 100 mmHg. The reference range was not used to interpret this result as normal/abnormal . BE (test code = -4.0 See_Comment L [Automated message] 7701665305) The system [employer] generated this result transmit che reference range : -3.0 - 3.0 mEq/ L. The reference r kyra was not used to interpret this result as normal/abnormal . HCO3 (test code = 22 See_Comment [Automate d message] 5753886856) The system [employer] generated this result transmit che reference range : 22 - 26 mEq/L. The reference range was not used to interpret this result as normal/abnormal . %O2HB (test code = 98.0 % 95.0-98.0 5899209532) NA (test code = 140 mmol/L 135-145 2472439810) K+ (test code = 3.3 mmol/L 3.5-5.0 L 9656011778) AC CA IONZ (test code = 4.00 mg/dL 4.50-5.30 L 5502589152) GLUCOSE (test code = 180 mg/dL 70-110 H 1891511848) AC Hematocrit (test 20 See_Comment LL [Automa che message] code = 9536762681) The syste m which generated this result transmit che reference range : 40 - 54 VOL %. The reference range was not used to interpret this result as normal/abnormal . THB (test code = 6.8 g/dL 13.5-18.0 LL 7233551957) AC TC02 (test code = 24 mmol/L See_Comment [Autom ated message] 6391392103) The system [employer] generated this result transmit che reference range : 23-27 mmol/L. T he reference range was not used to interpret this result as normal/abnormal . Lab Interpretation Abnormal (test code = 95489-2) [facility] ACUTE CARE [id number] 00:56:03 Test Item Value Reference Range Interpretation Comments PH (test code = 2) 7.30 7.35-7.45 L PCO2 (test code = 46 See_Comment H [Automate d message] 8381767320) The system [employer] generated this result transmit che reference range : 35 - 45 mmHg. The reference range was not used to interpret this result as normal/abnormal . PO2 (test code = 112 See_Comment H [Automated message] 3579680097) The system [employer] generated this result transmit che reference range : 80 - 100 mmHg. The reference range was not used to interpret this result as normal/abnormal . BE (test code = -4.0 See_Comment L [Automated message] 6051656031) The system [employer] generated this result transmit che reference range : -3.0 - 3.0 mEq/ L. The reference r kyra was not used to interpret this result as normal/abnormal . HCO3 (test code = 22 See_Comment [Automate d message] 5892528534) The system [employer] generated this result transmit che reference range : 22 - 26 mEq/L. The reference range was not used to interpret this result as normal/abnormal . %O2HB (test code = 98.0 % 95.0-98.0 0235832904) NA (test code = 140 mmol/L 135-145 5708427335) K+ (test code = 3.3 mmol/L 3.5-5.0 L 3268511797) AC CA IONZ (test code = 4.00 mg/dL 4.50-5.30 L 8522342243) GLUCOSE (test code = 180 mg/dL 70-110 H 6254387408) AC Hematocrit (test 20 See_Comment LL [Automa che message] code = 3136849626) The syste m which generated this result transmit che reference range : 40 - 54 VOL %. The reference range was not used to interpret this result as normal/abnormal . THB (test code = 6.8 g/dL 13.5-18.0 LL 4219197734) AC TC02 (test code = 24 mmol/L See_Comment [Autom ated message] 5588410984) The system [employer] generated this result transmit che reference range : 23-27 mmol/L. T he reference range was not used to interpret this result as normal/abnormal . Lab Interpretation Abnormal (test code = 56486-6) [facility]UTE CARE [id number] 00:56:03 Test Item Value Reference Range Interpretation Comments PH (test code = 2) 7.30 7.35-7.45 L PCO2 (test code = 46 See_Comment H [Automate d message] 9644708136) The system [employer] generated this result transmit che reference range : 35 - 45 mmHg. The reference range was not used to interpret this result as normal/abnormal . PO2 (test code = 112 See_Comment H [Automated message] 3975806154) The system [employer] generated this result transmit che reference range : 80 - 100 mmHg. The reference range was not used to interpret this result as normal/abnormal . BE (test code = -4.0 See_Comment L [Automated message] 2413537965) The system [employer] generated this result transmit che reference range : -3.0 - 3.0 mEq/ L. The reference r kyra was not used to interpret this result as normal/abnormal . HCO3 (test code = 22 See_Comment [Automate d message] 8515524908) The system [employer] generated this result transmit che reference range : 22 - 26 mEq/L. The reference range was not used to interpret this result as normal/abnormal . %O2HB (test code = 98.0 % 95.0-98.0 8240511083) NA (test code = 140 mmol/L 135-145 2654533839) K+ (test code = 3.3 mmol/L 3.5-5.0 L 4991067942) AC CA IONZ (test code = 4.00 mg/dL 4.50-5.30 L 0613508208) GLUCOSE (test code = 180 mg/dL 70-110 H 3628419541) AC Hematocrit (test 20 See_Comment LL [Automa che message] code = 2482794086) The syste m which generated this result transmit che reference range : 40 - 54 VOL %. The reference range was not used to interpret this result as normal/abnormal . THB (test code = 6.8 g/dL 13.5-18.0 LL 4540573686) AC TC02 (test code = 24 mmol/L See_Comment [Autom ated message] 8887787060) The system [employer] generated this result transmit che reference range : 23-27 mmol/L. T he reference range was not used to interpret this result as normal/abnormal . Lab Interpretation Abnormal (test code = 54180-8) [facility] ACUTE CARE [id number] 00:09:41 Test Item Value Reference Range Interpretation Comments PH (test code = 2) 7.28 7.35-7.45 L PCO2 (test code = 48 See_Comment H [Automate d message] 7414218484) The system [employer] generated this result transmit che reference range : 35 - 45 mmHg. The reference range was not used to interpret this result as normal/abnormal . PO2 (test code = 171 See_Comment H [Automated message] 4173678430) The system [employer] generated this result transmit che reference range : 80 - 100 mmHg. The reference range was not used to interpret this result as normal/abnormal . BE (test code = -4.0 See_Comment L [Automated message] 1075387361) The system [employer] generated this result transmit che reference range : -3.0 - 3.0 mEq/ L. The reference r kyra was not used to interpret this result as normal/abnormal . HCO3 (test code = 23 See_Comment [Automate d message] [id number]) The system [employer] generated this result transmit che reference range : 22 - 26 mEq/L. The reference range was not used to interpret this result as normal/abnormal . %O2HB (test code = 99.0 % 95.0-98.0 H 7210823056) NA (test code = 139 mmol/L 135-145 2200071097) K+ (test code = 3.0 mmol/L 3.5-5.0 L 2872529342) AC CA IONZ (test code = 4.30 mg/dL 4.50-5.30 L 9425012347) GLUCOSE (test code = 218 mg/dL 70-110 H 2653790200) AC Hematocrit (test 23 See_Comment LL [Automa che message] code = 4241724505) The syste m which generated this result transmit che reference range : 40 - 54 VOL %. The reference range was not used to interpret this result as normal/abnormal . THB (test code = 7.8 g/dL 13.5-18.0 LL 2629078012) AC TC02 (test code = 24 mmol/L See_Comment [Autom ated message] 7651820485) The system [employer] generated this result transmit che reference range : 23-27 mmol/L. T he reference range was not used to interpret this result as normal/abnormal . Lab Interpretation Abnormal (test code = 27184-6) [facility] ACUTE CARE [id number] 00:09:41 Test Item Value Reference Range Interpretation Comments PH (test code = 2) 7.28 7.35-7.45 L PCO2 (test code = 48 See_Comment H [Automate d message] [id number]) The system [employer] generated this result transmit che reference range : 35 - 45 mmHg. The reference range was not used to interpret this result as normal/abnormal . PO2 (test code = 171 See_Comment H [Automated message] 8452269588) The system [employer] generated this result transmit che reference range : 80 - 100 mmHg. The reference range was not used to interpret this result as normal/abnormal . BE (test code = -4.0 See_Comment L [Automated message] 3236273154) The system [employer] generated this result transmit che reference range : -3.0 - 3.0 mEq/ L. The reference r kyra was not used to interpret this result as normal/abnormal . HCO3 (test code = 23 See_Comment [Automate d message] 1676243119) The system [employer] generated this result transmit che reference range : 22 - 26 mEq/L. The reference range was not used to interpret this result as normal/abnormal . %O2HB (test code = 99.0 % 95.0-98.0 H 3553998425) NA (test code = 139 mmol/L 135-145 7645906904) K+ (test code = 3.0 mmol/L 3.5-5.0 L 8448879072) AC CA IONZ (test code = 4.30 mg/dL 4.50-5.30 L 2502560392) GLUCOSE (test code = 218 mg/dL 70-110 H 7396480302) AC Hematocrit (test 23 See_Comment LL [Automa che message] code = 3418147997) The syste m which generated this result transmit che reference range : 40 - 54 VOL %. The reference range was not used to interpret this result as normal/abnormal . THB (test code = 7.8 g/dL 13.5-18.0 LL 1579711255) AC TC02 (test code = 24 mmol/L See_Comment [Autom ated message] 2177289306) The system [employer] generated this result transmit che reference range : 23-27 mmol/L. T he reference range was not used to interpret this result as normal/abnormal . Lab Interpretation Abnormal (test code = 86625-8) [facility] ACUTE CARE [id number] 00:09:41 Test Item Value Reference Range Interpretation Comments PH (test code = 2) 7.28 7.35-7.45 L PCO2 (test code = 48 See_Comment H [Automate d message] 7804890034) The system [employer] generated this result transmit che reference range : 35 - 45 mmHg. The reference range was not used to interpret this result as normal/abnormal . PO2 (test code = 171 See_Comment H [Automated message] 1484724771) The system [employer] generated this result transmit che reference range : 80 - 100 mmHg. The reference range was not used to interpret this result as normal/abnormal . BE (test code = -4.0 See_Comment L [Automated message] 3964451432) The system [employer] generated this result transmit che reference range : -3.0 - 3.0 mEq/ L. The reference r kyra was not used to interpret this result as normal/abnormal . HCO3 (test code = 23 See_Comment [Automate d message] 7426623531) The system [employer] generated this result transmit che reference range : 22 - 26 mEq/L. The reference range was not used to interpret this result as normal/abnormal . %O2HB (test code = 99.0 % 95.0-98.0 H 5259304610) NA (test code = 139 mmol/L 135-145 7391876799) K+ (test code = 3.0 mmol/L 3.5-5.0 L 7785088680) AC CA IONZ (test code = 4.30 mg/dL 4.50-5.30 L 5302185116) GLUCOSE (test code = 218 mg/dL 70-110 H 3305450133) AC Hematocrit (test 23 See_Comment LL [Automa che message] code = 1622714612) The syste m which generated this result transmit che reference range : 40 - 54 VOL %. The reference range was not used to interpret this result as normal/abnormal . THB (test code = 7.8 g/dL 13.5-18.0 LL 1573450883) AC TC02 (test code = 24 mmol/L See_Comment [Autom ated message] 0573372754) The system [employer] generated this result transmit che reference range : 23-27 mmol/L. T he reference range was not used to interpret this result as normal/abnormal . Lab Interpretation Abnormal (test code = 49313-7) [facility] ACUTE CARE [id number] 23:09:57 Test Item Value Reference Range Interpretation Comments PH (test code = 2) 7.43 7.35-7.45 PCO2 (test code = 35 See_Comment [Automate d message] 5201487238) The system [employer] generated this result transmit che reference range : 35 - 45 mmHg. The reference range was not used to interpret this result as normal/abnormal . PO2 (test code = 220 See_Comment H [Automated message] 3255086791) The system [employer] generated this result transmit che reference range : 80 - 100 mmHg. The reference range was not used to interpret this result as normal/abnormal . BE (test code = -2.0 See_Comment [Automated message] 3376661185) The system [employer] generated this result transmit che reference range : -3.0 - 3.0 mEq/ L. The reference r kyra was not used to interpret this result as normal/abnormal . HCO3 (test code = 23 See_Comment [Automate d message] 1200242867) The system [employer] generated this result transmit che reference range : 22 - 26 mEq/L. The reference range was not used to interpret this result as normal/abnormal . %O2HB (test code = 100.0 % 95.0-98.0 H 6338619181) NA (test code = 136 mmol/L 135-145 8829450873) K+ (test code = 3.8 mmol/L 3.5-5.0 6626989999) AC CA IONZ (test code = 3.70 mg/dL 4.50-5.30 L 9547060376) GLUCOSE (test code = 282 mg/dL 70-110 H 3329298696) AC Hematocrit (test 26 See_Comment L [Automa che message] code = 0920627717) The syste m which generated this result transmit che reference range : 40 - 54 VOL %. The reference range was not used to interpret this result as normal/abnormal . THB (test code = 8.8 g/dL 13.5-18.0 L 3704034178) AC TC02 (test code = 24 mmol/L See_Comment [Autom ated message] 6954848497) The system [employer] generated this result transmit che reference range : 23-27 mmol/L. T he reference range was not used to interpret this result as normal/abnormal . Lab Interpretation Abnormal (test code = 51107-9) [facility] ACUTE CARE [id number] 23:09:57 Test Item Value Reference Range Interpretation Comments PH (test code = 2) 7.43 7.35-7.45 PCO2 (test code = 35 See_Comment [Automate d message] 6566178650) The system [employer] generated this result transmit che reference range : 35 - 45 mmHg. The reference range was not used to interpret this result as normal/abnormal . PO2 (test code = 220 See_Comment H [Automated message] 5405496569) The system [employer] generated this result transmit che reference range : 80 - 100 mmHg. The reference range was not used to interpret this result as normal/abnormal . BE (test code = -2.0 See_Comment [Automated message] 5746778553) The system [employer] generated this result transmit che reference range : -3.0 - 3.0 mEq/ L. The reference r kyra was not used to interpret this result as normal/abnormal . HCO3 (test code = 23 See_Comment [Automate d message] 7361253142) The system [employer] generated this result transmit che reference range : 22 - 26 mEq/L. The reference range was not used to interpret this result as normal/abnormal . %O2HB (test code = 100.0 % 95.0-98.0 H 3140715085) NA (test code = 136 mmol/L 135-145 3102673281) K+ (test code = 3.8 mmol/L 3.5-5.0 7242189538) AC CA IONZ (test code = 3.70 mg/dL 4.50-5.30 L 8546204344) GLUCOSE (test code = 282 mg/dL 70-110 H 2936089028) AC Hematocrit (test 26 See_Comment L [Automa che message] code = 5981731003) The syste m which generated this result transmit che reference range : 40 - 54 VOL %. The reference range was not used to interpret this result as normal/abnormal . THB (test code = 8.8 g/dL 13.5-18.0 L 5448485851) AC TC02 (test code = 24 mmol/L See_Comment [Autom ated message] 2082509822) The system [employer] generated this result transmit che reference range : 23-27 mmol/L. T he reference range was not used to interpret this result as normal/abnormal . Lab Interpretation Abnormal (test code = 49442-1) [facility] ACUTE CARE [id number] 23:09:57 Test Item Value Reference Range Interpretation Comments PH (test code = 2) 7.43 7.35-7.45 PCO2 (test code = 35 See_Comment [Automate d message] 1644113598) The system [employer] generated this result transmit che reference range : 35 - 45 mmHg. The reference range was not used to interpret this result as normal/abnormal . PO2 (test code = 220 See_Comment H [Automated message] 4323729082) The system [employer] generated this result transmit che reference range : 80 - 100 mmHg. The reference range was not used to interpret this result as normal/abnormal . BE (test code = -2.0 See_Comment [Automated message] 3801758092) The system [employer] generated this result transmit che reference range : -3.0 - 3.0 mEq/ L. The reference r kyra was not used to interpret this result as normal/abnormal . HCO3 (test code = 23 See_Comment [Automate d message] 4923931136) The system [employer] generated this result transmit che reference range : 22 - 26 mEq/L. The reference range was not used to interpret this result as normal/abnormal . %O2HB (test code = 100.0 % 95.0-98.0 H 1131822857) NA (test code = 136 mmol/L 135-145 3817161535) K+ (test code = 3.8 mmol/L 3.5-5.0 9168651753) AC CA IONZ (test code = 3.70 mg/dL 4.50-5.30 L 5675056465) GLUCOSE (test code = 282 mg/dL 70-110 H 7832138283) AC Hematocrit (test 26 See_Comment L [Automa che message] code = 4256325067) The syste m which generated this result transmit che reference range : 40 - 54 VOL %. The reference range was not used to interpret this result as normal/abnormal . THB (test code = 8.8 g/dL 13.5-18.0 L 2594858563) AC TC02 (test code = 24 mmol/L See_Comment [Autom ated message] 8260461663) The system [employer] generated this result transmit che reference range : 23-27 mmol/L. T he reference range was not used to interpret this result as normal/abnormal . Lab Interpretation Abnormal (test code = 82832-6) [facility] Platelets (in units): 2 Units~ 2023-02-13 22:48:46 Test Item Value Reference Range Interpretation Comments Unit Blood Type (test O Pos code = 4410) ISBT Blood Type Code 5100 (test code = 132864) Unit Number (test code [id number] = 4411) Blood Expiration Date & Time (test code = 995772) Status Information Issued (test code = 4412) Product Identification Platelets (test code = 4413) Product Code (test F4544I67 Performed at [facility] code = 4414) Laboratory Services - [facility] Blood [address] [place] [address]Cpcj Free: [phone] A No. [id number] [facility] Platelets (in units): 2 Units~ 2023-02-13 22:48:46 Test Item Value Reference Range Interpretation Comments Unit Blood Type (test O Pos code = 4410) ISBT Blood Type Code 5100 (test code = 651006) Unit Number (test code [id number] = 4411) Blood Expiration Date & Time (test code = 980471) Status Information Issued (test code = 4412) Product Identification Platelets (test code = 4413) Product Code (test [id number] Performed at [facility] code = 4414) Laboratory Services - [facility] Blood [address] [address]Lkdv Free: [phone] A No. [id number] [facility] (in units): 2 Units~ 2023-02-13 22:48:46 Test Item Value Reference Range Interpretation Comments Unit Blood Type (test O Pos code = 4410) ISBT Blood Type Code 5100 (test code = 449565) Unit Number (test code [id number] = 4411) Blood Expiration Date 379027323497 & Time (test code = 056018) Status Information Issued (test code = 4412) Product Identification Platelets (test code = 4413) Product Code (test [id number] Performed at [facility] code = 4414) Laboratory Services - [facility] Blood [address] [address]Sdgd Free: [phone] A No. [id number] [facility] [id number] 22:40:42 Test Item Value Reference Range Interpretation Comments PH (test code = 2) 7.40 7.35-7.45 PCO2 (test code = 38 See_Comment [Automate d message] 2886696366) The system [employer] generated this result transmit che reference range : 35 - 45 mmHg. The reference range was not used to interpret this result as normal/abnormal . PO2 (test code = 245 See_Comment H [Automated message] 1883953701) The system [employer] generated this result transmit che reference range : 80 - 100 mmHg. The reference range was not used to interpret this result as normal/abnormal . BE (test code = -1.0 See_Comment [Automated message] 1765836228) The system [employer] generated this result transmit che reference range : -3.0 - 3.0 mEq/ L. The reference r kyra was not used to interpret this result as normal/abnormal . HCO3 (test code = 24 See_Comment [Automate d message] 4554340674) The system [employer] generated this result transmit che reference range : 22 - 26 mEq/L. The reference range was not used to interpret this result as normal/abnormal . %O2HB (test code = 100.0 % 95.0-98.0 H 4768285110) NA (test code = 135 mmol/L 135-145 8687277565) K+ (test code = 3.9 mmol/L 3.5-5.0 5542895069) AC CA IONZ (test code = 3.60 mg/dL 4.50-5.30 L 3230354131) GLUCOSE (test code = 316 mg/dL 70-110 H 5183328849) AC Hematocrit (test 24 See_Comment LL [Automa che message] code = 1310459455) The syste m which generated this result transmit che reference range : 40 - 54 VOL %. The reference range was not used to interpret this result as normal/abnormal . THB (test code = 8.2 g/dL 13.5-18.0 LL 1103687059) AC TC02 (test code = 25 mmol/L See_Comment [Autom ated message] 0457502057) The system [employer] generated this result transmit che reference range : 23-27 mmol/L. T he reference range was not used to interpret this result as normal/abnormal . Lab Interpretation Abnormal (test code = 09010-9) [facility] ACUTE CARE [id number] 22:40:42 Test Item Value Reference Range Interpretation Comments PH (test code = 2) 7.40 7.35-7.45 PCO2 (test code = 38 See_Comment [Automate d message] 2253471375) The system [employer] generated this result transmit che reference range : 35 - 45 mmHg. The reference range was not used to interpret this result as normal/abnormal . PO2 (test code = 245 See_Comment H [Automated message] 5249510008) The system [employer] generated this result transmit che reference range : 80 - 100 mmHg. The reference range was not used to interpret this result as normal/abnormal . BE (test code = -1.0 See_Comment [Automated message] 8660674768) The system [employer] generated this result transmit che reference range : -3.0 - 3.0 mEq/ L. The reference r kyra was not used to interpret this result as normal/abnormal . HCO3 (test code = 24 See_Comment [Automate d message] 5311462258) The system [employer] generated this result transmit che reference range : 22 - 26 mEq/L. The reference range was not used to interpret this result as normal/abnormal . %O2HB (test code = 100.0 % 95.0-98.0 H 9520619440) NA (test code = 135 mmol/L 135-145 0517997339) K+ (test code = 3.9 mmol/L 3.5-5.0 6833886518) AC CA IONZ (test code = 3.60 mg/dL 4.50-5.30 L 0262811219) GLUCOSE (test code = 316 mg/dL 70-110 H 7654202171) AC Hematocrit (test 24 See_Comment LL [Automa che message] code = 2151823181) The syste m which generated this result transmit che reference range : 40 - 54 VOL %. The reference range was not used to interpret this result as normal/abnormal . THB (test code = 8.2 g/dL 13.5-18.0 LL 4941946094) AC TC02 (test code = 25 mmol/L See_Comment [Autom ated message] 6605620263) The system [employer] generated this result transmit che reference range : 23-27 mmol/L. T he reference range was not used to interpret this result as normal/abnormal . Lab Interpretation Abnormal (test code = 56323-7) [facility] ACUTE CARE [id number] 22:40:42 Test Item Value Reference Range Interpretation Comments PH (test code = 2) 7.40 7.35-7.45 PCO2 (test code = 38 See_Comment [Automate d message] 3375769053) The system [employer] generated this result transmit che reference range : 35 - 45 mmHg. The reference range was not used to interpret this result as normal/abnormal . PO2 (test code = 245 See_Comment H [Automated message] 1706050848) The system [employer] generated this result transmit che reference range : 80 - 100 mmHg. The reference range was not used to interpret this result as normal/abnormal . BE (test code = -1.0 See_Comment [Automated message] 2206512789) The system [employer] generated this result transmit che reference range : -3.0 - 3.0 mEq/ L. The reference r kyra was not used to interpret this result as normal/abnormal . HCO3 (test code = 24 See_Comment [Automate d message] 8171610421) The system [employer] generated this result transmit che reference range : 22 - 26 mEq/L. The reference range was not used to interpret this result as normal/abnormal . %O2HB (test code = 100.0 % 95.0-98.0 H 2926973772) NA (test code = 135 mmol/L 135-145 6559165018) K+ (test code = 3.9 mmol/L 3.5-5.0 0520551208) AC CA IONZ (test code = 3.60 mg/dL 4.50-5.30 L 9160966879) GLUCOSE (test code = 316 mg/dL 70-110 H 8502988582) AC Hematocrit (test 24 See_Comment LL [Automa che message] code = 7338827622) The syste m which generated this result transmit che reference range : 40 - 54 VOL %. The reference range was not used to interpret this result as normal/abnormal . THB (test code = 8.2 g/dL 13.5-18.0 LL 0043618177) AC TC02 (test code = 25 mmol/L See_Comment [Autom ated message] 2040697063) The system [employer] generated this result transmit che reference range : 23-27 mmol/L. T he reference range was not used to interpret this result as normal/abnormal . Lab Interpretation Abnormal (test code = 03682-5) [facility] ACUTE CARE [id number] 22:07:12 Test Item Value Reference Range Interpretation Comments PH (test code = 2) 7.39 7.35-7.45 PCO2 (test code = 39 See_Comment [Automate d message] 7393873511) The system [employer] generated this result transmit che reference range : 35 - 45 mmHg. The reference range was not used to interpret this result as normal/abnormal . PO2 (test code = 246 See_Comment H [Automated message] 2205940325) The system [employer] generated this result transmit che reference range : 80 - 100 mmHg. The reference range was not used to interpret this result as normal/abnormal . BE (test code = -1.0 See_Comment [Automated message] 4782255164) The system [employer] generated this result transmit che reference range : -3.0 - 3.0 mEq/ L. The reference r kyra was not used to interpret this result as normal/abnormal . HCO3 (test code = 24 See_Comment [Automate d message] 6906365234) The system [employer] generated this result transmit che reference range : 22 - 26 mEq/L. The reference range was not used to interpret this result as normal/abnormal . %O2HB (test code = 100.0 % 95.0-98.0 H 2246060442) NA (test code = 137 mmol/L 135-145 6232211286) K+ (test code = 2.9 mmol/L 3.5-5.0 LL 0015734725) AC CA IONZ (test code = 4.00 mg/dL 4.50-5.30 L 6789103052) GLUCOSE (test code = 285 mg/dL 70-110 H 5722979898) AC Hematocrit (test 25 See_Comment LL [Automa che message] code = 1939793316) The syste m which generated this result transmit che reference range : 40 - 54 VOL %. The reference range was not used to interpret this result as normal/abnormal . THB (test code = 8.5 g/dL 13.5-18.0 L 2353788500) AC TC02 (test code = 25 mmol/L See_Comment [Autom ated message] 6585414006) The system [employer] generated this result transmit che reference range : 23-27 mmol/L. T he reference range was not used to interpret this result as normal/abnormal . Lab Interpretation Abnormal (test code = 92257-7) [facility] ACUTE CARE [id number] 22:07:12 Test Item Value Reference Range Interpretation Comments PH (test code = 2) 7.39 7.35-7.45 PCO2 (test code = 39 See_Comment [Automate d message] 9140563234) The system [employer] generated this result transmit che reference range : 35 - 45 mmHg. The reference range was not used to interpret this result as normal/abnormal . PO2 (test code = 246 See_Comment H [Automated message] 9748852711) The system [employer] generated this result transmit che reference range : 80 - 100 mmHg. The reference range was not used to interpret this result as normal/abnormal . BE (test code = -1.0 See_Comment [Automated message] 2221193879) The system [employer] generated this result transmit che reference range : -3.0 - 3.0 mEq/ L. The reference r kyra was not used to interpret this result as normal/abnormal . HCO3 (test code = 24 See_Comment [Automate d message] 7227595528) The system [employer] generated this result transmit che reference range : 22 - 26 mEq/L. The reference range was not used to interpret this result as normal/abnormal . %O2HB (test code = 100.0 % 95.0-98.0 H 0628791445) NA (test code = 137 mmol/L 135-145 1043050255) K+ (test code = 2.9 mmol/L 3.5-5.0 LL 6506521551) AC CA IONZ (test code = 4.00 mg/dL 4.50-5.30 L 7243875805) GLUCOSE (test code = 285 mg/dL 70-110 H 2319970679) AC Hematocrit (test 25 See_Comment LL [Automa che message] code = 3135061348) The syste m which generated this result transmit che reference range : 40 - 54 VOL %. The reference range was not used to interpret this result as normal/abnormal . THB (test code = 8.5 g/dL 13.5-18.0 L 2744213374) AC TC02 (test code = 25 mmol/L See_Comment [Autom ated message] 0165196927) The system [employer] generated this result transmit che reference range : 23-27 mmol/L. T he reference range was not used to interpret this result as normal/abnormal . Lab Interpretation Abnormal (test code = 92590-5) [facility] ACUTE CARE [id number] 22:07:12 Test Item Value Reference Range Interpretation Comments PH (test code = 2) 7.39 7.35-7.45 PCO2 (test code = 39 See_Comment [Automate d message] 9524021789) The system [employer] generated this result transmit che reference range : 35 - 45 mmHg. The reference range was not used to interpret this result as normal/abnormal . PO2 (test code = 246 See_Comment H [Automated message] 5016564293) The system [employer] generated this result transmit che reference range : 80 - 100 mmHg. The reference range was not used to interpret this result as normal/abnormal . BE (test code = -1.0 See_Comment [Automated message] 2832158825) The system [employer] generated this result transmit che reference range : -3.0 - 3.0 mEq/ L. The reference r kyra was not used to interpret this result as normal/abnormal . HCO3 (test code = 24 See_Comment [Automate d message] 3995443949) The system [employer] generated this result transmit che reference range : 22 - 26 mEq/L. The reference range was not used to interpret this result as normal/abnormal . %O2HB (test code = 100.0 % 95.0-98.0 H 6075538285) NA (test code = 137 mmol/L 135-145 7221757354) K+ (test code = 2.9 mmol/L 3.5-5.0 LL 5558738839) AC CA IONZ (test code = 4.00 mg/dL 4.50-5.30 L 3417878256) GLUCOSE (test code = 285 mg/dL 70-110 H 7820118152) AC Hematocrit (test 25 See_Comment LL [Automa che message] code = 3564571788) The syste m which generated this result transmit che reference range : 40 - 54 VOL %. The reference range was not used to interpret this result as normal/abnormal . THB (test code = 8.5 g/dL 13.5-18.0 L 2930671530) AC TC02 (test code = 25 mmol/L See_Comment [Autom ated message] [id number]) The system [employer] generated this result transmit che reference range : 23-27 mmol/L. T he reference range was not used to interpret this result as normal/abnormal . Lab Interpretation Abnormal (test code = 45345-0) [facility] ACUTE [facility]ARE [id number] 21:40:16 Test Item Value Reference Range Interpretation Comments PH (test code = 2) 7.40 7.35-7.45 PCO2 (test code = 40 See_Comment [Automate d message] [id number]) The system [employer] h generated this result transmit che reference range : 35 - 45 mmHg. The reference range was not used to interpret this result as normal/abnormal . PO2 (test code = 241 See_Comment H [Automated message] [id number]) The system [employer] generated this result transmit che reference range : 80 - 100 mmHg. The reference range was not used to interpret this result as normal/abnormal . BE (test code = 0.0 See_Comment [Automated message] [id number]) The system [employer] generated this result transmit che reference range : -3.0 - 3.0 mEq/ L. The reference r kyra was not used to interpret this result as normal/abnormal . HCO3 (test code = 25 See_Comment [Automate d message] 2383969042) The system [employer] generated this result transmit che reference range : 22 - 26 mEq/L. The reference range was not used to interpret this result as normal/abnormal . %O2HB (test code = 100.0 % 95.0-98.0 H 9432650335) NA (test code = 136 mmol/L 135-145 7321566870) K+ (test code = 3.0 mmol/L 3.5-5.0 L 0868095806) AC CA IONZ (test code = 4.00 mg/dL 4.50-5.30 L 7387540019) GLUCOSE (test code = 280 mg/dL 70-110 H 9800386402) AC Hematocrit (test 25 See_Comment LL [Automa che message] code = 7617331188) The syste m which generated this result transmit che reference range : 40 - 54 VOL %. The reference range was not used to interpret this result as normal/abnormal . THB (test code = 8.5 g/dL 13.5-18.0 L 1549467122) AC TC02 (test code = 26 mmol/L See_Comment [Autom ated message] 1984836920) The system [employer] generated this result transmit che reference range : 23-27 mmol/L. T he reference range was not used to interpret this result as normal/abnormal . Lab Interpretation Abnormal (test code = 17495-3) [facility] ACUTE CARE [id number] 21:40:16 Test Item Value Reference Range Interpretation Comments PH (test code = 2) 7.40 7.35-7.45 PCO2 (test code = 40 See_Comment [Automate d message] [id number]) The system [employer] generated this result transmit che reference range : 35 - 45 mmHg. The reference range was not used to interpret this result as normal/abnormal . PO2 (test code = 241 See_Comment H [Automated message] [id number]) The system [employer] generated this result transmit che reference range : 80 - 100 mmHg. The reference range was not used to interpret this result as normal/abnormal . BE (test code = 0.0 See_Comment [Automated message] [id number]) The system [employer] generated this result transmit che reference range : -3.0 - 3.0 mEq/ L. The reference r kyra was not used to interpret this result as normal/abnormal . HCO3 (test code = 25 See_Comment [Automate d message] 3140629395) The system [employer] generated this result transmit che reference range : 22 - 26 mEq/L. The reference range was not used to interpret this result as normal/abnormal . %O2HB (test code = 100.0 % 95.0-98.0 H 3417614421) NA (test code = 136 mmol/L 135-145 7018897151) K+ (test code = 3.0 mmol/L 3.5-5.0 L 9503087218) AC CA IONZ (test code = 4.00 mg/dL 4.50-5.30 L 2826627999) GLUCOSE (test code = 280 mg/dL 70-110 H 5271158653) AC Hematocrit (test 25 See_Comment LL [Automa che message] code = 4337909996) The syste m which generated this result transmit che reference range : 40 - 54 VOL %. The reference range was not used to interpret this result as normal/abnormal . THB (test code = 8.5 g/dL 13.5-18.0 L 2567606444) AC TC02 (test code = 26 mmol/L See_Comment [Autom ated message] 6372953361) The system [employer] generated this result transmit che reference range : 23-27 mmol/L. T he reference range was not used to interpret this result as normal/abnormal . Lab Interpretation Abnormal (test code = 50469-6) [facility] ACUTE CARE [id number] 21:40:16 Test Item Value Reference Range Interpretation Comments PH (test code = 2) 7.40 7.35-7.45 PCO2 (test code = 40 See_Comment [Automate d message] 2782764359) The system [employer] generated this result transmit che reference range : 35 - 45 mmHg. The reference range was not used to interpret this result as normal/abnormal . PO2 (test code = 241 See_Comment H [Automated message] 8530630965) The system [employer] generated this result transmit che reference range : 80 - 100 mmHg. The reference range was not used to interpret this result as normal/abnormal . BE (test code = 0.0 See_Comment [Automated message] 4102875254) The system [employer] generated this result transmit che reference range : -3.0 - 3.0 mEq/ L. The reference r kyra was not used to interpret this result as normal/abnormal . HCO3 (test code = 25 See_Comment [Automate d message] 4178985642) The system [employer] generated this result transmit che reference range : 22 - 26 mEq/L. The reference range was not used to interpret this result as normal/abnormal . %O2HB (test code = 100.0 % 95.0-98.0 H 3128453881) NA (test code = 136 mmol/L 135-145 3222662763) K+ (test code = 3.0 mmol/L 3.5-5.0 L 0585015475) AC CA IONZ (test code = 4.00 mg/dL 4.50-5.30 L 1159588225) GLUCOSE (test code = 280 mg/dL 70-110 H 6106296007) AC Hematocrit (test 25 See_Comment LL [Automa che message] code = 1198336302) The syste m which generated this result transmit che reference range : 40 - 54 VOL %. The reference range was not used to interpret this result as normal/abnormal . THB (test code = 8.5 g/dL 13.5-18.0 L 2039844883) AC TC02 (test code = 26 mmol/L See_Comment [Autom ated message] 5849382983) The system [employer] generated this result transmit che reference range : 23-27 mmol/L. T he reference range was not used to interpret this result as normal/abnormal . Lab Interpretation Abnormal (test code = 33860-1) [facility] AC[facility] CARE [id number] 21:17:12 Test Item Value Reference Range Interpretation Comments PH (test code = 2) 7.41 7.35-7.45 PCO2 (test code = 39 See_Comment [Automate d message] 1121588425) The system [employer] generated this result transmit che reference range : 35 - 45 mmHg. The reference range was not used to interpret this result as normal/abnormal . PO2 (test code = 247 See_Comment H [Automated message] 7946028451) The system [employer] generated this result transmit che reference range : 80 - 100 mmHg. The reference range was not used to interpret this result as normal/abnormal . BE (test code = 0.0 See_Comment [Automated message] 0645445441) The system [employer] generated this result transmit che reference range : -3.0 - 3.0 mEq/ L. The reference r kyra was not used to interpret this result as normal/abnormal . HCO3 (test code = 25 See_Comment [Automate d message] 5836561659) The system [employer] generated this result transmit che reference range : 22 - 26 mEq/L. The reference range was not used to interpret this result as normal/abnormal . %O2HB (test code = 100.0 % 95.0-98.0 H 8033130132) NA (test code = 135 mmol/L 135-145 2696055811) K+ (test code = 3.2 mmol/L 3.5-5.0 L 8949972717) AC CA IONZ (test code = 3.90 mg/dL 4.50-5.30 L 6447744205) GLUCOSE (test code = 302 mg/dL 70-110 H 9959875008) AC Hematocrit (test 26 See_Comment L [Automa che message] code = 3447928641) The syste m which generated this result transmit che reference range : 40 - 54 VOL %. The reference range was not used to interpret this result as normal/abnormal . THB (test code = 8.8 g/dL 13.5-18.0 L 9732791138) AC TC02 (test code = 26 mmol/L See_Comment [Autom ated message] 8650768027) The system [employer] generated this result transmit che reference range : 23-27 mmol/L. T he reference range was not used to interpret this result as normal/abnormal . Lab Interpretation Abnormal (test code = 66089-0) [facility] ACUTE CARE [id number] 21:17:12 Test Item Value Reference Range Interpretation Comments PH (test code = 2) 7.41 7.35-7.45 PCO2 (test code = 39 See_Comment [Automate d message] 9490326797) The system [employer] generated this result transmit che reference range : 35 - 45 mmHg. The reference range was not used to interpret this result as normal/abnormal . PO2 (test code = 247 See_Comment H [Automated message] 0543424008) The system [employer] generated this result transmit che reference range : 80 - 100 mmHg. The reference range was not used to interpret this result as normal/abnormal . BE (test code = 0.0 See_Comment [Automated message] 5753718294) The system [employer] generated this result transmit che reference range : -3.0 - 3.0 mEq/ L. The reference r kyra was not used to interpret this result as normal/abnormal . HCO3 (test code = 25 See_Comment [Automate d message] 3028354303) The system [employer] generated this result transmit che reference range : 22 - 26 mEq/L. The reference range was not used to interpret this result as normal/abnormal . %O2HB (test code = 100.0 % 95.0-98.0 H 6222499171) NA (test code = 135 mmol/L 135-145 3951945422) K+ (test code = 3.2 mmol/L 3.5-5.0 L 8001654212) AC CA IONZ (test code = 3.90 mg/dL 4.50-5.30 L 6666980382) GLUCOSE (test code = 302 mg/dL 70-110 H 3872472515) AC Hematocrit (test 26 See_Comment L [Automa che message] code = 5519542767) The syste m which generated this result transmit che reference range : 40 - 54 VOL %. The reference range was not used to interpret this result as normal/abnormal . THB (test code = 8.8 g/dL 13.5-18.0 L 7789768461) AC TC02 (test code = 26 mmol/L See_Comment [Autom ated message] 2527641558) The system [employer] generated this result transmit che reference range : 23-27 mmol/L. T he reference range was not used to interpret this result as normal/abnormal . Lab Interpretation Abnormal (test code = 12324-7) [facility] ACUTE CARE [id number] 21:17:12 Test Item Value Reference Range Interpretation Comments PH (test code = 2) 7.41 7.35-7.45 PCO2 (test code = 39 See_Comment [Automate d message] [id number]) The system [employer] generated this result transmit che reference range : 35 - 45 mmHg. The reference range was not used to interpret this result as normal/abnormal . PO2 (test code = 247 See_Comment H [Automated message] [id number]) The system [employer] generated this result transmit che reference range : 80 - 100 mmHg. The reference range was not used to interpret this result as normal/abnormal . BE (test code = 0.0 See_Comment [Automated message] 7321486478) The system [employer] generated this result transmit che reference range : -3.0 - 3.0 mEq/ L. The reference r kyra was not used to interpret this result as normal/abnormal . HCO3 (test code = 25 See_Comment [Automate d message] 0559484563) The system [employer] generated this result transmit che reference range : 22 - 26 mEq/L. The reference range was not used to interpret this result as normal/abnormal . %O2HB (test code = 100.0 % 95.0-98.0 H 4462249927) NA (test code = 135 mmol/L 135-145 7426284257) K+ (test code = 3.2 mmol/L 3.5-5.0 L 5641436202) AC CA IONZ (test code = 3.90 mg/dL 4.50-5.30 L 8044615407) GLUCOSE (test code = 302 mg/dL 70-110 H 1848511058) AC Hematocrit (test 26 See_Comment L [Automa che message] code = 2107077668) The syste m which generated this result transmit che reference range : 40 - 54 VOL %. The reference range was not used to interpret this result as normal/abnormal . THB (test code = 8.8 g/dL 13.5-18.0 L 5704276141) AC TC02 (test code = 26 mmol/L See_Comment [Autom ated message] 4029131313) The system [employer] generated this result transmit che reference range : 23-27 mmol/L. T he reference range was not used to interpret this result as normal/abnormal . Lab Interpretation Abnormal (test code = 95613-0) [facility] ACUTE CARE [id number] 20:47:44 Test Item Value Reference Range Interpretation Comments PH (test code = 2) 7.41 7.35-7.45 PCO2 (test code = 39 See_Comment [Automate d message] 6865471662) The system [employer] generated this result transmit che reference range : 35 - 45 mmHg. The reference range was not used to interpret this result as normal/abnormal . PO2 (test code = 243 See_Comment H [Automated message] 6119937663) The system [employer] generated this result transmit che reference range : 80 - 100 mmHg. The reference range was not used to interpret this result as normal/abnormal . BE (test code = 0.0 See_Comment [Automated message] 3832501265) The system [employer] generated this result transmit che reference range : -3.0 - 3.0 mEq/ L. The reference r kyra was not used to interpret this result as normal/abnormal . HCO3 (test code = 24 See_Comment [Automate d message] 5690328462) The system [employer] generated this result transmit che reference range : 22 - 26 mEq/L. The reference range was not used to interpret this result as normal/abnormal . %O2HB (test code = 100.0 % 95.0-98.0 H 1025206125) NA (test code = 136 mmol/L 135-145 8480052468) K+ (test code = 3.5 mmol/L 3.5-5.0 8619014013) AC CA IONZ (test code = 3.90 mg/dL 4.50-5.30 L 8741890660) GLUCOSE (test code = 299 mg/dL 70-110 H 8520628917) AC Hematocrit (test 26 See_Comment L [Automa che message] code = 0183053301) The syste m which generated this result transmit che reference range : 40 - 54 VOL %. The reference range was not used to interpret this result as normal/abnormal . THB (test code = 8.8 g/dL 13.5-18.0 L 3 6353184026) AC TC02 (test code = 25 mmol/L See_Comment [Autom ated message] 0182203382) The system [employer] generated this result transmit che reference range : 23-27 mmol/L. T he reference range was not used to interpret this result as normal/abnormal . Lab Interpretation Abnormal (test code = 81854-0) [facility] ACUTE CARE [id number] 20:47:44 Test Item Value Reference Range Interpretation Comments PH (test code = 2) 7.41 7.35-7.45 PCO2 (test code = 39 See_Comment [Automate d message] 1514637653) The system [employer] generated this result transmit che reference range : 35 - 45 mmHg. The reference range was not used to interpret this result as normal/abnormal . PO2 (test code = 243 See_Comment H [Automated message] 0577163699) The system [employer] generated this result transmit che reference range : 80 - 100 mmHg. The reference range was not used to interpret this result as normal/abnormal . BE (test code = 0.0 See_Comment [Automated message] 4744708243) The system [employer] generated this result transmit che reference range : -3.0 - 3.0 mEq/ L. The reference r kyra was not used to interpret this result as normal/abnormal . HCO3 (test code = 24 See_Comment [Automate d message] 2575468696) The system [employer] generated this result transmit che reference range : 22 - 26 mEq/L. The reference range was not used to interpret this result as normal/abnormal . %O2HB (test code = 100.0 % 95.0-98.0 H 4049455984) NA (test code = 136 mmol/L 135-145 5992448583) K+ (test code = 3.5 mmol/L 3.5-5.0 3661214884) AC CA IONZ (test code = 3.90 mg/dL 4.50-5.30 L 6687448034) GLUCOSE (test code = 299 mg/dL 70-110 H 6036658227) AC Hematocrit (test 26 See_Comment L [Automa che message] code = 5160781852) The syste m which generated this result transmit che reference range : 40 - 54 VOL %. The reference range was not used to interpret this result as normal/abnormal . THB (test code = 8.8 g/dL 13.5-18.0 L 9 0898784363) AC TC02 (test code = 25 mmol/L See_Comment [Autom ated message] 3795195070) The system [employer] generated this result transmit che reference range : 23-27 mmol/L. T he reference range was not used to interpret this result as normal/abnormal . Lab Interpretation Abnormal (test code = 71314-4) [facility] ACUTE CARE [id number] 20:47:44 Test Item Value Reference Range Interpretation Comments PH (test code = 2) 7.41 7.35-7.45 PCO2 (test code = 39 See_Comment [Automate d message] 0644291677) The system [employer] generated this result transmit che reference range : 35 - 45 mmHg. The reference range was not used to interpret this result as normal/abnormal . PO2 (test code = 243 See_Comment H [Automated message] 7881736469) The system [employer] generated this result transmit che reference range : 80 - 100 mmHg. The reference range was not used to interpret this result as normal/abnormal . BE (test code = 0.0 See_Comment [Automated message] 0514915784) The system [employer] generated this result transmit che reference range : -3.0 - 3.0 mEq/ L. The reference r kyra was not used to interpret this result as normal/abnormal . HCO3 (test code = 24 See_Comment [Automate d message] 8838736782) The system [employer] generated this result transmit che reference range : 22 - 26 mEq/L. The reference range was not used to interpret this result as normal/abnormal . %O2HB (test code = 100.0 % 95.0-98.0 H 2258899748) NA (test code = 136 mmol/L 135-145 2068500351) K+ (test code = 3.5 mmol/L 3.5-5.0 8525051713) AC CA IONZ (test code = 3.90 mg/dL 4.50-5.30 L 0690437297) GLUCOSE (test code = 299 mg/dL 70-110 H 1179954327) AC Hematocrit (test 26 See_Comment L [Automa che message] code = 0967369363) The syste m which generated this result transmit che reference range : 40 - 54 VOL %. The reference range was not used to interpret this result as normal/abnormal . THB (test code = 8.8 g/dL 13.5-18.0 L 9 0859331109) AC TC02 (test code = 25 mmol/L See_Comment [Autom ated message] 6130708732) The system [employer] generated this result transmit che reference range : 23-27 mmol/L. T he reference range was not used to interpret this result as normal/abnormal . Lab Interpretation Abnormal (test code = 55422-4) [facility] ACUTE CARE [id number] 20:10:37 Test Item Value Reference Range Interpretation Comments PH (test code = 2) 7.41 7.35-7.45 PCO2 (test code = 37 See_Comment [Automate d message] 4959089537) The system [employer] generated this result transmit che reference range : 35 - 45 mmHg. The reference range was not used to interpret this result as normal/abnormal . PO2 (test code = 231 See_Comment H [Automated message] 3439817626) The system [employer] generated this result transmit che reference range : 80 - 100 mmHg. The reference range was not used to interpret this result as normal/abnormal . BE (test code = -1.0 See_Comment [Automated message] 7443250343) The system [employer] generated this result transmit che reference range : -3.0 - 3.0 mEq/ L. The reference r kyra was not used to interpret this result as normal/abnormal . HCO3 (test code = 23 See_Comment [Automate d message] 5738423196) The system [employer] generated this result transmit che reference range : 22 - 26 mEq/L. The reference range was not used to interpret this result as normal/abnormal . %O2HB (test code = 100.0 % 95.0-98.0 H 7245981422) NA (test code = 137 mmol/L 135-145 0439882948) K+ (test code = 3.5 mmol/L 3.5-5.0 8310733521) AC CA IONZ (test code = 3.90 mg/dL 4.50-5.30 L 8813670426) GLUCOSE (test code = 260 mg/dL 70-110 H 9573053819) AC Hematocrit (test 26 See_Comment L [Automa che message] code = 0189216080) The syste m which generated this result transmit che reference range : 40 - 54 VOL %. The reference range was not used to interpret this result as normal/abnormal . THB (test code = 8.8 g/dL 13.5-18.0 L 7964200644) AC TC02 (test code = 25 mmol/L See_Comment [Autom ated message] 5569241519) The system [employer] generated this result transmit che reference range : 23-27 mmol/L. T he reference range was not used to interpret this result as normal/abnormal . Lab Interpretation Abnormal (test code = 74053-3) [facility] ACUTE CARE [id number] 20:10:37 Test Item Value Reference Range Interpretation Comments PH (test code = 2) 7.41 7.35-7.45 PCO2 (test code = 37 See_Comment [Automate d message] 2392879631) The system [employer] generated this result transmit che reference range : 35 - 45 mmHg. The reference range was not used to interpret this result as normal/abnormal . PO2 (test code = 231 See_Comment H [Automated message] 2104719518) The system [employer] generated this result transmit che reference range : 80 - 100 mmHg. The reference range was not used to interpret this result as normal/abnormal . BE (test code = -1.0 See_Comment [Automated message] 5457624285) The system [employer] generated this result transmit che reference range : -3.0 - 3.0 mEq/ L. The reference r kyra was not used to interpret this result as normal/abnormal . HCO3 (test code = 23 See_Comment [Automate d message] 1097208748) The system [employer] generated this result transmit che reference range : 22 - 26 mEq/L. The reference range was not used to interpret this result as normal/abnormal . %O2HB (test code = 100.0 % 95.0-98.0 H 8732073684) NA (test code = 137 mmol/L 135-145 6262229823) K+ (test code = 3.5 mmol/L 3.5-5.0 1399922430) AC CA IONZ (test code = 3.90 mg/dL 4.50-5.30 L 7476188362) GLUCOSE (test code = 260 mg/dL 70-110 H 5027981861) AC Hematocrit (test 26 See_Comment L [Automa che message] code = 7204208213) The syste m which generated this result transmit che reference range : 40 - 54 VOL %. The reference range was not used to interpret this result as normal/abnormal . THB (test code = 8.8 g/dL 13.5-18.0 L 8292751415) AC TC02 (test code = 25 mmol/L See_Comment [Autom ated message] 0067548287) The system [employer] generated this result transmit che reference range : 23-27 mmol/L. T he reference range was not used to interpret this result as normal/abnormal . Lab Interpretation Abnormal (test code = 51788-1) [facility] AC[facility] CARE [id number] 20:10:37 Test Item Value Reference Range Interpretation Comments PH (test code = 2) 7.41 7.35-7.45 PCO2 (test code = 37 See_Comment [Automate d message] 8497641987) The system [employer] generated this result transmit che reference range : 35 - 45 mmHg. The reference range was not used to interpret this result as normal/abnormal . PO2 (test code = 231 See_Comment H [Automated message] 3869469057) The system [employer] generated this result transmit che reference range : 80 - 100 mmHg. The reference range was not used to interpret this result as normal/abnormal . BE (test code = -1.0 See_Comment [Automated message] 3814407206) The system [employer] generated this result transmit che reference range : -3.0 - 3.0 mEq/ L. The reference r kyra was not used to interpret this result as normal/abnormal . HCO3 (test code = 23 See_Comment [Automate d message] 0009006353) The system [employer] generated this result transmit che reference range : 22 - 26 mEq/L. The reference range was not used to interpret this result as normal/abnormal . %O2HB (test code = 100.0 % 95.0-98.0 H 6257240907) NA (test code = 137 mmol/L 135-145 1262584913) K+ (test code = 3.5 mmol/L 3.5-5.0 9278461013) AC CA IONZ (test code = 3.90 mg/dL 4.50-5.30 L 1539931061) GLUCOSE (test code = 260 mg/dL 70-110 H 4943766953) AC Hematocrit (test 26 See_Comment L [Automa che message] code = 7471539406) The syste m which generated this result transmit che reference range : 40 - 54 VOL %. The reference range was not used to interpret this result as normal/abnormal . THB (test code = 8.8 g/dL 13.5-18.0 L 0103539097) AC TC02 (test code = 25 mmol/L See_Comment [Autom ated message] 8067392594) The system [employer] generated this result transmit che reference range : 23-27 mmol/L. T he reference range was not used to interpret this result as normal/abnormal . Lab Interpretation Abnormal (test code = 54033-9) [facility] AC[facility]ARE [id number] 19:40:39 Test Item Value Reference Range Interpretation Comments PH (test code = 2) 7.39 7.35-7.45 PCO2 (test code = 38 See_Comment [Automate d message] 0007603751) The system [employer] generated this result transmit che reference range : 35 - 45 mmHg. The reference range was not used to interpret this result as normal/abnormal . PO2 (test code = 217 See_Comment H [Automated message] [id number]) The system [employer] generated this result transmit che reference range : 80 - 100 mmHg. The reference range was not used to interpret this result as normal/abnormal . BE (test code = -2.0 See_Comment [Automated message] [id number]) The system [employer] generated this result transmit che reference range : -3.0 - 3.0 mEq/ L. The reference r kyra was not used to interpret this result as normal/abnormal . HCO3 (test code = 23 See_Comment [Automate d message] [id number]) The system [employer] generated this result transmit che reference range : 22 - 26 mEq/L. The reference range was not used to interpret this result as normal/abnormal . %O2HB (test code = 100.0 % 95.0-98.0 H 6289279855) NA (test code = 138 mmol/L 135-145 5139902377) K+ (test code = 3.6 mmol/L 3.5-5.0 8325656983) AC CA IONZ (test code = 4.10 mg/dL 4.50-5.30 L 0315144160) GLUCOSE (test code = 231 mg/dL 70-110 H 0614618455) AC Hematocrit (test 27 See_Comment L [Automa che message] code = 3765988385) The syste m which generated this result transmit che reference range : 40 - 54 VOL %. The reference range was not used to interpret this result as normal/abnormal . THB (test code = 9.2 g/dL 13.5-18.0 L 0647871290) AC TC02 (test code = 24 mmol/L See_Comment [Autom ated message] [id number]) The system [employer] generated this result transmit che reference range : 23-27 mmol/L. T he reference range was not used to interpret this result as normal/abnormal . Lab Interpretation Abnormal (test code = 95512-5) [facility]UTE [facility] [id number] 19:40:39 Test Item Value Reference Range Interpretation Comments PH (test code = 2) 7.39 7.35-7.45 PCO2 (test code = 38 See_Comment [Automate d message] [id number]) The system [employer] generated this result transmit che reference range : 35 - 45 mmHg. The reference range was not used to interpret this result as normal/abnormal . PO2 (test code = 217 See_Comment H [Automated message] 4039760304) The system [employer] generated this result transmit che reference range : 80 - 100 mmHg. The reference range was not used to interpret this result as normal/abnormal . BE (test code = -2.0 See_Comment [Automated message] [id number]) The system [employer] generated this result transmit che reference range : -3.0 - 3.0 mEq/ L. The reference r kyra was not used to interpret this result as normal/abnormal . HCO3 (test code = 23 See_Comment [Automate d message] 6657165327) The system [employer] generated this result transmit che reference range : 22 - 26 mEq/L. The reference range was not used to interpret this result as normal/abnormal . %O2HB (test code = 100.0 % 95.0-98.0 H 8941628001) NA (test code = 138 mmol/L 135-145 0869211116) K+ (test code = 3.6 mmol/L 3.5-5.0 0724785302) AC CA IONZ (test code = 4.10 mg/dL 4.50-5.30 L 6390102230) GLUCOSE (test code = 231 mg/dL 70-110 H 0987465060) AC Hematocrit (test 27 See_Comment L [Automa che message] code = 9678490338) The syste m which generated this result transmit che reference range : 40 - 54 VOL %. The reference range was not used to interpret this result as normal/abnormal . THB (test code = 9.2 g/dL 13.5-18.0 L 5169937467) AC TC02 (test code = 24 mmol/L See_Comment [Autom ated message] 2726242900) The system [employer] generated this result transmit che reference range : 23-27 mmol/L. T he reference range was not used to interpret this result as normal/abnormal . Lab Interpretation Abnormal (test code = 36688-5) [facility] ACUTE CARE [id number] 19:40:39 Test Item Value Reference Range Interpretation Comments PH (test code = 2) 7.39 7.35-7.45 PCO2 (test code = 38 See_Comment [Automate d message] [id number]) The system [employer] generated this result transmit che reference range : 35 - 45 mmHg. The reference range was not used to interpret this result as normal/abnormal . PO2 (test code = 217 See_Comment H [Automated message] 1658280617) The system [employer] generated this result transmit che reference range : 80 - 100 mmHg. The reference range was not used to interpret this result as normal/abnormal . BE (test code = -2.0 See_Comment [Automated message] 9173130166) The system [employer] generated this result transmit che reference range : -3.0 - 3.0 mEq/ L. The reference r kyra was not used to interpret this result as normal/abnormal . HCO3 (test code = 23 See_Comment [Automate d message] 3398906691) The system [employer] generated this result transmit che reference range : 22 - 26 mEq/L. The reference range was not used to interpret this result as normal/abnormal . %O2HB (test code = 100.0 % 95.0-98.0 H 8164651021) NA (test code = 138 mmol/L 135-145 3976544866) K+ (test code = 3.6 mmol/L 3.5-5.0 6111644189) AC CA IONZ (test code = 4.10 mg/dL 4.50-5.30 L 6657086473) GLUCOSE (test code = 231 mg/dL 70-110 H 3065567571) AC Hematocrit (test 27 See_Comment L [Automa che message] code = 4875148461) The syste m which generated this result transmit che reference range : 40 - 54 VOL %. The reference range was not used to interpret this result as normal/abnormal . THB (test code = 9.2 g/dL 13.5-18.0 L 7716441349) AC TC02 (test code = 24 mmol/L See_Comment [Autom ated message] 9751516500) The system [employer] generated this result transmit che reference range : 23-27 mmol/L. T he reference range was not used to interpret this result as normal/abnormal . Lab Interpretation Abnormal (test code = 84865-7) [facility] ACUTE [facility]ARE [id number] 19:10:28 Test Item Value Reference Range Interpretation Comments PH (test code = 2) 7.42 7.35-7.45 PCO2 (test code = 39 See_Comment [Automate d message] [id number]) The system [employer] generated this result transmit che reference range : 35 - 45 mmHg. The reference range was not used to interpret this result as normal/abnormal . PO2 (test code = 207 See_Comment H [Automated message] 6378837954) The system [employer] generated this result transmit che reference range : 80 - 100 mmHg. The reference range was not used to interpret this result as normal/abnormal . BE (test code = 0.0 See_Comment [Automated message] 7712083842) The system [employer] generated this result transmit che reference range : -3.0 - 3.0 mEq/ L. The reference r kyra was not used to interpret this result as normal/abnormal . HCO3 (test code = 25 See_Comment [Automate d message] 0920328853) The system [employer] generated this result transmit che reference range : 22 - 26 mEq/L. The reference range was not used to interpret this result as normal/abnormal . %O2HB (test code = 100.0 % 95.0-98.0 H 6728923056) NA (test code = 136 mmol/L 135-145 3830525345) K+ (test code = 4.1 mmol/L 3.5-5.0 3663616782) AC CA IONZ (test code = 4.10 mg/dL 4.50-5.30 L 4861788985) GLUCOSE (test code = 262 mg/dL 70-110 H 0766812155) AC Hematocrit (test 29 See_Comment L [Automa che message] code = 3909219369) The syste m which generated this result transmit che reference range : 40 - 54 VOL %. The reference range was not used to interpret this result as normal/abnormal . THB (test code = 9.9 g/dL 13.5-18.0 L 3415191423) AC TC02 (test code = 26 mmol/L See_Comment [Autom ated message] 6913530020) The system [employer] generated this result transmit che reference range : 23-27 mmol/L. T he reference range was not used to interpret this result as normal/abnormal . Lab Interpretation Abnormal (test code = 29201-8) [facility] ACUTE CARE [id number] 19:10:28 Test Item Value Reference Range Interpretation Comments PH (test code = 2) 7.42 7.35-7.45 PCO2 (test code = 39 See_Comment [Automate d message] 6197837891) The system [employer] generated this result transmit che reference range : 35 - 45 mmHg. The reference range was not used to interpret this result as normal/abnormal . PO2 (test code = 207 See_Comment H [Automated message] 6025699130) The system [employer] generated this result transmit che reference range : 80 - 100 mmHg. The reference range was not used to interpret this result as normal/abnormal . BE (test code = 0.0 See_Comment [Automated message] 4894366940) The system [employer] generated this result transmit che reference range : -3.0 - 3.0 mEq/ L. The reference r kyra was not used to interpret this result as normal/abnormal . HCO3 (test code = 25 See_Comment [Automate d message] 9260618320) The system [employer] generated this result transmit che reference range : 22 - 26 mEq/L. The reference range was not used to interpret this result as normal/abnormal . %O2HB (test code = 100.0 % 95.0-98.0 H 2272776753) NA (test code = 136 mmol/L 135-145 0358325666) K+ (test code = 4.1 mmol/L 3.5-5.0 9220793081) AC CA IONZ (test code = 4.10 mg/dL 4.50-5.30 L 9530228479) GLUCOSE (test code = 262 mg/dL 70-110 H 5866350482) AC Hematocrit (test 29 See_Comment L [Automa che message] code = 0294375785) The syste m which generated this result transmit che reference range : 40 - 54 VOL %. The reference range was not used to interpret this result as normal/abnormal . THB (test code = 9.9 g/dL 13.5-18.0 L 5024037888) AC TC02 (test code = 26 mmol/L See_Comment [Autom ated message] 9910660380) The system [employer] generated this result transmit che reference range : 23-27 mmol/L. T he reference range was not used to interpret this result as normal/abnormal . Lab Interpretation Abnormal (test code = 93690-9) [facility] ACUTE CARE [id number] 19:10:28 Test Item Value Reference Range Interpretation Comments PH (test code = 2) 7.42 7.35-7.45 PCO2 (test code = 39 See_Comment [Automate d message] 6957753095) The system [employer] generated this result transmit che reference range : 35 - 45 mmHg. The reference range was not used to interpret this result as normal/abnormal . PO2 (test code = 207 See_Comment H [Automated message] 8198571789) The system [employer] generated this result transmit che reference range : 80 - 100 mmHg. The reference range was not used to interpret this result as normal/abnormal . BE (test code = 0.0 See_Comment [Automated message] 9720771967) The system [employer] generated this result transmit che reference range : -3.0 - 3.0 mEq/ L. The reference r kyra was not used to interpret this result as normal/abnormal . HCO3 (test code = 25 See_Comment [Automate d message] 7982177611) The system [employer] generated this result transmit che reference range : 22 - 26 mEq/L. The reference range was not used to interpret this result as normal/abnormal . %O2HB (test code = 100.0 % 95.0-98.0 H 1409290588) NA (test code = 136 mmol/L 135-145 8025322947) K+ (test code = 4.1 mmol/L 3.5-5.0 1917072257) AC CA IONZ (test code = 4.10 mg/dL 4.50-5.30 L 6927694683) GLUCOSE (test code = 262 mg/dL 70-110 H 3673518320) AC Hematocrit (test 29 See_Comment L [Automa che message] code = 9749026844) The syste m which generated this result transmit che reference range : 40 - 54 VOL %. The reference range was not used to interpret this result as normal/abnormal . THB (test code = 9.9 g/dL 13.5-18.0 L 4526692508) AC TC02 (test code = 26 mmol/L See_Comment [Autom ated message] 1560984589) The system [employer] generated this result transmit che reference range : 23-27 mmol/L. T he reference range was not used to interpret this result as normal/abnormal . Lab Interpretation Abnormal (test code = 98521-0) [facility] ACUTE CARE [id number] 18:43:23 Test Item Value Reference Range Interpretation Comments PH (test code = 2) 7.44 7.35-7.45 PCO2 (test code = 37 See_Comment [Automate d message] 0872949353) The system [employer] generated this result transmit che reference range : 35 - 45 mmHg. The reference range was not used to interpret this result as normal/abnormal . PO2 (test code = 224 See_Comment H [Automated message] 9375336516) The system [employer] generated this result transmit che reference range : 80 - 100 mmHg. The reference range was not used to interpret this result as normal/abnormal . BE (test code = 1.0 See_Comment [Automated message] 4346701157) The system [employer] generated this result transmit che reference range : -3.0 - 3.0 mEq/ L. The reference r kyra was not used to interpret this result as normal/abnormal . HCO3 (test code = 25 See_Comment [Automate d message] 1517235142) The system [employer] generated this result transmit che reference range : 22 - 26 mEq/L. The reference range was not used to interpret this result as normal/abnormal . %O2HB (test code = 100.0 % 95.0-98.0 H 6896181333) NA (test code = 135 mmol/L 135-145 2058667606) K+ (test code = 4.8 mmol/L 3.5-5.0 1348985160) AC CA IONZ (test code = 4.00 mg/dL 4.50-5.30 L 4259500951) GLUCOSE (test code = 275 mg/dL 70-110 H 1633637629) AC Hematocrit (test 30 See_Comment L [Automa che message] code = 9736982130) The syste m which generated this result transmit che reference range : 40 - 54 VOL %. The reference range was not used to interpret this result as normal/abnormal . THB (test code = 10.2 g/dL 13.5-18.0 L 9875034261) AC TC02 (test code = 26 mmol/L See_Comment [Autom ated message] 7708297109) The system [employer] generated this result transmit che reference range : 23-27 mmol/L. T he reference range was not used to interpret this result as normal/abnormal . Lab Interpretation Abnormal (test code = 92890-8) [facility] ACUTE CARE [id number] 18:43:23 Test Item Value Reference Range Interpretation Comments PH (test code = 2) 7.44 7.35-7.45 PCO2 (test code = 37 See_Comment [Automate d message] 3932081786) The system [employer] generated this result transmit che reference range : 35 - 45 mmHg. The reference range was not used to interpret this result as normal/abnormal . PO2 (test code = 224 See_Comment H [Automated message] 4517914311) The system [employer] generated this result transmit che reference range : 80 - 100 mmHg. The reference range was not used to interpret this result as normal/abnormal . BE (test code = 1.0 See_Comment [Automated message] 3599424784) The system [employer] generated this result transmit che reference range : -3.0 - 3.0 mEq/ L. The reference r kyra was not used to interpret this result as normal/abnormal . HCO3 (test code = 25 See_Comment [Automate d message] 7618641740) The system [employer] generated this result transmit che reference range : 22 - 26 mEq/L. The reference range was not used to interpret this result as normal/abnormal . %O2HB (test code = 100.0 % 95.0-98.0 H 2295070829) NA (test code = 135 mmol/L 135-145 6788510541) K+ (test code = 4.8 mmol/L 3.5-5.0 1466399265) AC CA IONZ (test code = 4.00 mg/dL 4.50-5.30 L 0381943862) GLUCOSE (test code = 275 mg/dL 70-110 H 9926382200) AC Hematocrit (test 30 See_Comment L [Automa che message] code = 0838181988) The syste m which generated this result transmit che reference range : 40 - 54 VOL %. The reference range was not used to interpret this result as normal/abnormal . THB (test code = 10.2 g/dL 13.5-18.0 L 2476670027) AC TC02 (test code = 26 mmol/L See_Comment [Autom ated message] 6008757146) The system [employer] generated this result transmit che reference range : 23-27 mmol/L. T he reference range was not used to interpret this result as normal/abnormal . Lab Interpretation Abnormal (test code = 70929-0) [facility] ACUTE CARE [id number] 18:43:23 Test Item Value Reference Range Interpretation Comments PH (test code = 2) 7.44 7.35-7.45 PCO2 (test code = 37 See_Comment [Automate d message] 1378437454) The system [employer] generated this result transmit che reference range : 35 - 45 mmHg. The reference range was not used to interpret this result as normal/abnormal . PO2 (test code = 224 See_Comment H [Automated message] 7044666762) The system [employer] generated this result transmit che reference range : 80 - 100 mmHg. The reference range was not used to interpret this result as normal/abnormal . BE (test code = 1.0 See_Comment [Automated message] 0823148717) The system [employer] generated this result transmit che reference range : -3.0 - 3.0 mEq/ L. The reference r kyra was not used to interpret this result as normal/abnormal . HCO3 (test code = 25 See_Comment [Automate d message] 8995069197) The system [employer] generated this result transmit che reference range : 22 - 26 mEq/L. The reference range was not used to interpret this result as normal/abnormal . %O2HB (test code = 100.0 % 95.0-98.0 H 4092277652) NA (test code = 135 mmol/L 135-145 0801633162) K+ (test code = 4.8 mmol/L 3.5-5.0 8492858582) AC CA IONZ (test code = 4.00 mg/dL 4.50-5.30 L 0811581083) GLUCOSE (test code = 275 mg/dL 70-110 H 5629895419) AC Hematocrit (test 30 See_Comment L [Automa che message] code = 0323192358) The syste m which generated this result transmit che reference range : 40 - 54 VOL %. The reference range was not used to interpret this result as normal/abnormal . THB (test code = 10.2 g/dL 13.5-18.0 L 7466570027) AC TC02 (test code = 26 mmol/L See_Comment [Autom ated message] 5717970665) The system [employer] generated this result transmit che reference range : 23-27 mmol/L. T he reference range was not used to interpret this result as normal/abnormal . Lab Interpretation Abnormal (test code = 37150-5) [facility] ACUTE [facility]ARE [id number] 18:10:02 Test Item Value Reference Range Interpretation Comments PH (test code = 2) 7.35 7.35-7.45 PCO2 (test code = 44 See_Comment [Automate d message] 0642028851) The system [employer] generated this result transmit che reference range : 35 - 45 mmHg. The reference range was not used to interpret this result as normal/abnormal . PO2 (test code = 249 See_Comment H [Automated message] 9706564249) The system [employer] generated this result transmit che reference range : 80 - 100 mmHg. The reference range was not used to interpret this result as normal/abnormal . BE (test code = -2.0 See_Comment [Automated message] 6384834728) The system [employer] generated this result transmit che reference range : -3.0 - 3.0 mEq/ L. The reference r kyra was not used to interpret this result as normal/abnormal . HCO3 (test code = 24 See_Comment [Automate d message] 9115615342) The system [employer] generated this result transmit che reference range : 22 - 26 mEq/L. The reference range was not used to interpret this result as normal/abnormal . %O2HB (test code = 100.0 % 95.0-98.0 H 0494299852) NA (test code = 141 mmol/L 135-145 7658706403) K+ (test code = 3.7 mmol/L 3.5-5.0 5788687854) AC CA IONZ (test code = 5.00 mg/dL 4.50-5.30 7675283730) GLUCOSE (test code = 115 mg/dL 70-110 H 3882769989) AC Hematocrit (test 40 See_Comment [Automa che message] code = 7571647563) The syste m which generated this result transmit che reference range : 40 - 54 VOL %. The reference range was not used to interpret this result as normal/abnormal . THB (test code = 13.6 g/dL 13.5-18.0 2000964530) AC TC02 (test code = 25 mmol/L See_Comment [Autom ated message] 6724474053) The system [employer] generated this result transmit che reference range : 23-27 mmol/L. T he reference range was not used to interpret this result as normal/abnormal . Lab Interpretation Abnormal (test code = 44487-3) [facility] AC[facility] [id number] 18:10:02 Test Item Value Reference Range Interpretation Comments PH (test code = 2) 7.29 7.35-7.45 L PCO2 (test code = 47 See_Comment H [Automate d message] 1178221466) The system [employer] generated this result transmit che reference range : 35 - 45 mmHg. The reference range was not used to interpret this result as normal/abnormal . PO2 (test code = 287 See_Comment H [Automated message] 3914610960) The system [employer] generated this result transmit che reference range : 80 - 100 mmHg. The reference range was not used to interpret this result as normal/abnormal . BE (test code = -4.0 See_Comment L [Automated message] 8640037123) The system [employer] generated this result transmit che reference range : -3.0 - 3.0 mEq/ L. The reference r kyra was not used to interpret this result as normal/abnormal . HCO3 (test code = 23 See_Comment [Automate d message] 0039165052) The system [employer] generated this result transmit che reference range : 22 - 26 mEq/L. The reference range was not used to interpret this result as normal/abnormal . %O2HB (test code = 100.0 % 95.0-98.0 H 1169315148) NA (test code = 139 mmol/L 135-145 4306869332) K+ (test code = 4.3 mmol/L 3.5-5.0 9270984213) AC CA IONZ (test code = 3.70 mg/dL 4.50-5.30 L 2683142519) GLUCOSE (test code = 139 mg/dL 70-110 H 3021140337) AC Hematocrit (test 29 See_Comment L [Automa che message] code = 3575859821) The syste m which generated this result transmit che reference range : 40 - 54 VOL %. The reference range was not used to interpret this result as normal/abnormal . THB (test code = 9.9 g/dL 13.5-18.0 L 8996513156) AC TC02 (test code = 24 mmol/L See_Comment [Autom ated message] 3893159471) The system [employer] generated this result transmit che reference range : 23-27 mmol/L. T he reference range was not used to interpret this result as normal/abnormal . Lab Interpretation Abnormal (test code = 25332-4) [facility] [id number] 18:10:02 Test Item Value Reference Range Interpretation Comments PH (test code = 2) 7.38 7.35-7.45 PCO2 (test code = 42 See_Comment [Automate d message] 8976001059) The system [employer] generated this result transmit che reference range : 35 - 45 mmHg. The reference range was not used to interpret this result as normal/abnormal . PO2 (test code = 375 See_Comment H [Automated message] 5923158794) The system [employer] generated this result transmit che reference range : 80 - 100 mmHg. The reference range was not used to interpret this result as normal/abnormal . BE (test code = 0.0 See_Comment [Automated message] 2308294721) The system [employer] generated this result transmit che reference range : -3.0 - 3.0 mEq/ L. The reference r kyra was not used to interpret this result as normal/abnormal . HCO3 (test code = 25 See_Comment [Automate d message] 5603623770) The system [employer] generated this result transmit che reference range : 22 - 26 mEq/L. The reference range was not used to interpret this result as normal/abnormal . %O2HB (test code = 100.0 % 95.0-98.0 H 8093149270) NA (test code = 138 mmol/L 135-145 2238931753) K+ (test code = 4.2 mmol/L 3.5-5.0 5515585923) AC CA IONZ (test code = 4.20 mg/dL 4.50-5.30 L 3728334330) GLUCOSE (test code = 200 mg/dL 70-110 H 8999035641) AC Hematocrit (test 30 See_Comment L [Automa che message] code = 7473616525) The syste m which generated this result transmit che reference range : 40 - 54 VOL %. The reference range was not used to interpret this result as normal/abnormal . THB (test code = 10.2 g/dL 13.5-18.0 L 5320454641) AC TC02 (test code = 26 mmol/L See_Comment [Autom ated message] 7633243561) The system [employer] generated this result transmit che reference range : 23-27 mmol/L. T he reference range was not used to interpret this result as normal/abnormal . Lab Interpretation Abnormal (test code = 25136-8) [facility] [id number] 18:10:02 Test Item Value Reference Range Interpretation Comments PH (test code = 2) 7.44 7.35-7.45 PCO2 (test code = 37 See_Comment [Automate d message] [id number]) The system [employer] generated this result transmit che reference range : 35 - 45 mmHg. The reference range was not used to interpret this result as normal/abnormal . PO2 (test code = 235 See_Comment H [Automated message] 1666372261) The system [employer] generated this result transmit che reference range : 80 - 100 mmHg. The reference range was not used to interpret this result as normal/abnormal . BE (test code = 1.0 See_Comment [Automated message] 6549454235) The system [employer] generated this result transmit che reference range : -3.0 - 3.0 mEq/ L. The reference r kyra was not used to interpret this result as normal/abnormal . HCO3 (test code = 25 See_Comment [Automate d message] 4997960851) The system [employer] generated this result transmit che reference range : 22 - 26 mEq/L. The reference range was not used to interpret this result as normal/abnormal . %O2HB (test code = 100.0 % 95.0-98.0 H 3038362193) NA (test code = 136 mmol/L 135-145 4036827077) K+ (test code = 4.7 mmol/L 3.5-5.0 9384243148) AC CA IONZ (test code = 4.10 mg/dL 4.50-5.30 L 1516110348) GLUCOSE (test code = 259 mg/dL 70-110 H 7912581822) AC Hematocrit (test 31 See_Comment L [Automa che message] code = 1270493433) The syste m which generated this result transmit che reference range : 40 - 54 VOL %. The reference range was not used to interpret this result as normal/abnormal . THB (test code = 10.5 g/dL 13.5-18.0 L 3139399527) AC TC02 (test code = 26 mmol/L See_Comment [Autom ated message] 3451265656) The system [employer] generated this result transmit che reference range : 23-27 mmol/L. T he reference range was not used to interpret this result as normal/abnormal . Lab Interpretation Abnormal (test code = 79862-5) [facility] ACUTE CARE [id number] 18:10:02 Test Item Value Reference Range Interpretation Comments PH (test code = 2) 7.35 7.35-7.45 PCO2 (test code = 44 See_Comment [Automate d message] 6791278840) The system [employer] generated this result transmit che reference range : 35 - 45 mmHg. The reference range was not used to interpret this result as normal/abnormal . PO2 (test code = 249 See_Comment H [Automated message] 6723705135) The system [employer] generated this result transmit che reference range : 80 - 100 mmHg. The reference range was not used to interpret this result as normal/abnormal . BE (test code = -2.0 See_Comment [Automated message] 3557868882) The system [employer] generated this result transmit che reference range : -3.0 - 3.0 mEq/ L. The reference r kyra was not used to interpret this result as normal/abnormal . HCO3 (test code = 24 See_Comment [Automate d message] 5365843998) The system [employer] generated this result transmit che reference range : 22 - 26 mEq/L. The reference range was not used to interpret this result as normal/abnormal . %O2HB (test code = 100.0 % 95.0-98.0 H 4791328064) NA (test code = 141 mmol/L 135-145 7603048008) K+ (test code = 3.7 mmol/L 3.5-5.0 8918829949) AC CA IONZ (test code = 5.00 mg/dL 4.50-5.30 1152449332) GLUCOSE (test code = 115 mg/dL 70-110 H 9716823651) AC Hematocrit (test 40 See_Comment [Automa che message] code = 3542008935) The syste m which generated this result transmit che reference range : 40 - 54 VOL %. The reference range was not used to interpret this result as normal/abnormal . THB (test code = 13.6 g/dL 13.5-18.0 7134090501) AC TC02 (test code = 25 mmol/L See_Comment [Autom ated message] 2222288237) The system [employer] generated this result transmit che reference range : 23-27 mmol/L. T he reference range was not used to interpret this result as normal/abnormal . Lab Interpretation Abnormal (test code = 24462-7) [facility] ACUTE CARE [id number] 18:10:02 Test Item Value Reference Range Interpretation Comments PH (test code = 2) 7.29 7.35-7.45 L PCO2 (test code = 47 See_Comment H [Automate d message] 6143504282) The system [employer] generated this result transmit che reference range : 35 - 45 mmHg. The reference range was not used to interpret this result as normal/abnormal . PO2 (test code = 287 See_Comment H [Automated message] 9768834685) The system [employer] generated this result transmit che reference range : 80 - 100 mmHg. The reference range was not used to interpret this result as normal/abnormal . BE (test code = -4.0 See_Comment L [Automated message] 3098041772) The system [employer] generated this result transmit che reference range : -3.0 - 3.0 mEq/ L. The reference r kyra was not used to interpret this result as normal/abnormal . HCO3 (test code = 23 See_Comment [Automate d message] 6779514095) The system [employer] generated this result transmit che reference range : 22 - 26 mEq/L. The reference range was not used to interpret this result as normal/abnormal . %O2HB (test code = 100.0 % 95.0-98.0 H 2563897490) NA (test code = 139 mmol/L 135-145 1168529585) K+ (test code = 4.3 mmol/L 3.5-5.0 4322711203) AC CA IONZ (test code = 3.70 mg/dL 4.50-5.30 L 9542167891) GLUCOSE (test code = 139 mg/dL 70-110 H 5120608349) AC Hematocrit (test 29 See_Comment L [Automa che message] code = 2752109534) The syste m which generated this result transmit che reference range : 40 - 54 VOL %. The reference range was not used to interpret this result as normal/abnormal . THB (test code = 9.9 g/dL 13.5-18.0 L 7445858992) AC TC02 (test code = 24 mmol/L See_Comment [Autom ated message] 5997338289) The system [employer] generated this result transmit che reference range : 23-27 mmol/L. T he reference range was not used to interpret this result as normal/abnormal . Lab Interpretation Abnormal (test code = 09482-3) [facility] ACUTE CARE [id number] 18:10:02 Test Item Value Reference Range Interpretation Comments PH (test code = 2) 7.38 7.35-7.45 PCO2 (test code = 42 See_Comment [Automate d message] 8637877929) The system [employer] generated this result transmit che reference range : 35 - 45 mmHg. The reference range was not used to interpret this result as normal/abnormal . PO2 (test code = 375 See_Comment H [Automated message] 7219973936) The system [employer] generated this result transmit che reference range : 80 - 100 mmHg. The reference range was not used to interpret this result as normal/abnormal . BE (test code = 0.0 See_Comment [Automated message] 3884297279) The system [employer] generated this result transmit che reference range : -3.0 - 3.0 mEq/ L. The reference r kyra was not used to interpret this result as normal/abnormal . HCO3 (test code = 25 See_Comment [Automate d message] 1667284047) The system [employer] generated this result transmit che reference range : 22 - 26 mEq/L. The reference range was not used to interpret this result as normal/abnormal . %O2HB (test code = 100.0 % 95.0-98.0 H 5987066801) NA (test code = 138 mmol/L 135-145 6194225334) K+ (test code = 4.2 mmol/L 3.5-5.0 2588781193) AC CA IONZ (test code = 4.20 mg/dL 4.50-5.30 L 1284417000) GLUCOSE (test code = 200 mg/dL 70-110 H 1180011018) AC Hematocrit (test 30 See_Comment L [Automa che message] code = 1986770559) The syste m which generated this result transmit che reference range : 40 - 54 VOL %. The reference range was not used to interpret this result as normal/abnormal . THB (test code = 10.2 g/dL 13.5-18.0 L 1144558170) AC TC02 (test code = 26 mmol/L See_Comment [Autom ated message] 7197712250) The system [employer] generated this result transmit che reference range : 23-27 mmol/L. T he reference range was not used to interpret this result as normal/abnormal . Lab Interpretation Abnormal (test code = 15421-6) [facility] ACUTE CARE [id number] 18:10:02 Test Item Value Reference Range Interpretation Comments PH (test code = 2) 7.44 7.35-7.45 PCO2 (test code = 37 See_Comment [Automate d message] 6916221743) The system [employer] generated this result transmit che reference range : 35 - 45 mmHg. The reference range was not used to interpret this result as normal/abnormal . PO2 (test code = 235 See_Comment H [Automated message] 7839122300) The system [employer] generated this result transmit che reference range : 80 - 100 mmHg. The reference range was not used to interpret this result as normal/abnormal . BE (test code = 1.0 See_Comment [Automated message] 2206008357) The system [employer] generated this result transmit che reference range : -3.0 - 3.0 mEq/ L. The reference r kyra was not used to interpret this result as normal/abnormal . HCO3 (test code = 25 See_Comment [Automate d message] 9636783819) The system [employer] generated this result transmit che reference range : 22 - 26 mEq/L. The reference range was not used to interpret this result as normal/abnormal . %O2HB (test code = 100.0 % 95.0-98.0 H 7919698265) NA (test code = 136 mmol/L 135-145 6146417488) K+ (test code = 4.7 mmol/L 3.5-5.0 8017931518) AC CA IONZ (test code = 4.10 mg/dL 4.50-5.30 L 8524195930) GLUCOSE (test code = 259 mg/dL 70-110 H 3261319437) AC Hematocrit (test 31 See_Comment L [Automa che message] code = 6968810822) The syste m which generated this result transmit che reference range : 40 - 54 VOL %. The reference range was not used to interpret this result as normal/abnormal . THB (test code = 10.5 g/dL 13.5-18.0 L 4851796408) AC TC02 (test code = 26 mmol/L See_Comment [Autom ated message] 5185571739) The system [employer] generated this result transmit che reference range : 23-27 mmol/L. T he reference range was not used to interpret this result as normal/abnormal . Lab Interpretation Abnormal (test code = 92015-3) [facility] ACUTE CARE [id number] 18:10:02 Test Item Value Reference Range Interpretation Comments PH (test code = 2) 7.35 7.35-7.45 PCO2 (test code = 44 See_Comment [Automate d message] 7709429815) The system [employer] generated this result transmit che reference range : 35 - 45 mmHg. The reference range was not used to interpret this result as normal/abnormal . PO2 (test code = 249 See_Comment H [Automated message] 8462940791) The system [employer] generated this result transmit che reference range : 80 - 100 mmHg. The reference range was not used to interpret this result as normal/abnormal . BE (test code = -2.0 See_Comment [Automated message] 1345341452) The system [employer] generated this result transmit che reference range : -3.0 - 3.0 mEq/ L. The reference r kyra was not used to interpret this result as normal/abnormal . HCO3 (test code = 24 See_Comment [Automate d message] 8700078166) The system [employer] generated this result transmit che reference range : 22 - 26 mEq/L. The reference range was not used to interpret this result as normal/abnormal . %O2HB (test code = 100.0 % 95.0-98.0 H 7525905084) NA (test code = 141 mmol/L 135-145 7354379270) K+ (test code = 3.7 mmol/L 3.5-5.0 7637989067) AC CA IONZ (test code = 5.00 mg/dL 4.50-5.30 5245393017) GLUCOSE (test code = 115 mg/dL 70-110 H 1221826762) AC Hematocrit (test 40 See_Comment [Automa che message] code = 3076028786) The syste m which generated this result transmit che reference range : 40 - 54 VOL %. The reference range was not used to interpret this result as normal/abnormal . THB (test code = 13.6 g/dL 13.5-18.0 6260554441) AC TC02 (test code = 25 mmol/L See_Comment [Autom ated message] 4216814623) The system [employer] generated this result transmit che reference range : 23-27 mmol/L. T he reference range was not used to interpret this result as normal/abnormal . Lab Interpretation Abnormal (test code = 98576-4) [facility] ACUTE CARE [id number] 18:10:02 Test Item Value Reference Range Interpretation Comments PH (test code = 2) 7.29 7.35-7.45 L PCO2 (test code = 47 See_Comment H [Automate d message] 7431378475) The system [employer] generated this result transmit che reference range : 35 - 45 mmHg. The reference range was not used to interpret this result as normal/abnormal . PO2 (test code = 287 See_Comment H [Automated message] 6958841760) The system [employer] generated this result transmit che reference range : 80 - 100 mmHg. The reference range was not used to interpret this result as normal/abnormal . BE (test code = -4.0 See_Comment L [Automated message] 6902366746) The system [employer] generated this result transmit che reference range : -3.0 - 3.0 mEq/ L. The reference r kyra was not used to interpret this result as normal/abnormal . HCO3 (test code = 23 See_Comment [Automate d message] 8076026292) The system [employer] generated this result transmit che reference range : 22 - 26 mEq/L. The reference range was not used to interpret this result as normal/abnormal . %O2HB (test code = 100.0 % 95.0-98.0 H 5262938212) NA (test code = 139 mmol/L 135-145 5268721820) K+ (test code = 4.3 mmol/L 3.5-5.0 9264354804) AC CA IONZ (test code = 3.70 mg/dL 4.50-5.30 L 1501332724) GLUCOSE (test code = 139 mg/dL 70-110 H 6224019071) AC Hematocrit (test 29 See_Comment L [Automa che message] code = 6475559758) The syste m which generated this result transmit che reference range : 40 - 54 VOL %. The reference range was not used to interpret this result as normal/abnormal . THB (test code = 9.9 g/dL 13.5-18.0 L 8526760588) AC TC02 (test code = 24 mmol/L See_Comment [Autom ated message] 4271550879) The system [employer] generated this result transmit che reference range : 23-27 mmol/L. T he reference range was not used to interpret this result as normal/abnormal . Lab Interpretation Abnormal (test code = 24125-7) [facility] ACUTE CARE [id number] 18:10:02 Test Item Value Reference Range Interpretation Comments PH (test code = 2) 7.38 7.35-7.45 PCO2 (test code = 42 See_Comment [Automate d message] 6214157723) The system [employer] generated this result transmit che reference range : 35 - 45 mmHg. The reference range was not used to interpret this result as normal/abnormal . PO2 (test code = 375 See_Comment H [Automated message] 4782226053) The system [employer] generated this result transmit che reference range : 80 - 100 mmHg. The reference range was not used to interpret this result as normal/abnormal . BE (test code = 0.0 See_Comment [Automated message] 3122552483) The system [employer] generated this result transmit che reference range : -3.0 - 3.0 mEq/ L. The reference r kyra was not used to interpret this result as normal/abnormal . HCO3 (test code = 25 See_Comment [Automate d message] 4160217432) The system [employer] generated this result transmit che reference range : 22 - 26 mEq/L. The reference range was not used to interpret this result as normal/abnormal . %O2HB (test code = 100.0 % 95.0-98.0 H 5722849744) NA (test code = 138 mmol/L 135-145 7954616016) K+ (test code = 4.2 mmol/L 3.5-5.0 9507180836) AC CA IONZ (test code = 4.20 mg/dL 4.50-5.30 L 2627181280) GLUCOSE (test code = 200 mg/dL 70-110 H 9575982341) AC Hematocrit (test 30 See_Comment L [Automa che message] code = 2319921122) The syste m which generated this result transmit che reference range : 40 - 54 VOL %. The reference range was not used to interpret this result as normal/abnormal . THB (test code = 10.2 g/dL 13.5-18.0 L 9130167862) AC TC02 (test code = 26 mmol/L See_Comment [Autom ated message] 6267949422) The system [employer] generated this result transmit che reference range : 23-27 mmol/L. T he reference range was not used to interpret this result as normal/abnormal . Lab Interpretation Abnormal (test code = 28766-7) [facility] ACUTE CARE [id number] 18:10:02 Test Item Value Reference Range Interpretation Comments PH (test code = 2) 7.44 7.35-7.45 PCO2 (test code = 37 See_Comment [Automate d message] 3726020321) The system [employer] generated this result transmit che reference range : 35 - 45 mmHg. The reference range was not used to interpret this result as normal/abnormal . PO2 (test code = 235 See_Comment H [Automated message] 6292302698) The system [employer] generated this result transmit che reference range : 80 - 100 mmHg. The reference range was not used to interpret this result as normal/abnormal . BE (test code = 1.0 See_Comment [Automated message] 3530569373) The system [employer] generated this result transmit che reference range : -3.0 - 3.0 mEq/ L. The reference r kyra was not used to interpret this result as normal/abnormal . HCO3 (test code = 25 See_Comment [Automate d message] 0801295890) The system [employer] generated this result transmit che reference range : 22 - 26 mEq/L. The reference range was not used to interpret this result as normal/abnormal . %O2HB (test code = 100.0 % 95.0-98.0 H 8084104494) NA (test code = 136 mmol/L 135-145 6334555709) K+ (test code = 4.7 mmol/L 3.5-5.0 1241389059) AC CA IONZ (test code = 4.10 mg/dL 4.50-5.30 L 5351401217) GLUCOSE (test code = 259 mg/dL 70-110 H 3872564906) AC Hematocrit (test 31 See_Comment L [Automa che message] code = 1117852140) The syste m which generated this result transmit che reference range : 40 - 54 VOL %. The reference range was not used to interpret this result as normal/abnormal . THB (test code = 10.5 g/dL 13.5-18.0 L 3333096910) AC TC02 (test code = 26 mmol/L See_Comment [Autom ated message] 9785379530) The system [employer] generated this result transmit che reference range : 23-27 mmol/L. T he reference range was not used to interpret this result as normal/abnormal . Lab Interpretation Abnormal (test code = 20935-7) [facility] is [facility] type and screen. ONCE [id number] 12:32:00 Test Item Value Reference Range Interpretation Comments ABO & RH (test code = 20) O POSITIVE IAT (test code = 1185) [facility] type and screen. ONCE [id number] 12:32:00 Test Item Value Reference Range Interpretation Comments ABO & RH (test code = 20) O POSITIVE IAT (test code = 1185) [facility] This is a pre-surgical type and screen. ONCE [id number] 12:32:00 Test Item Value Reference Range Interpretation Comments ABO & RH (test code = 20) O POSITIVE IAT (test code = 1185) Negative [facility] [id number] 22:13:13 Test Item Value Reference Range Interpretation Comments HCV Ab (test code = 87777-1) Negative HCV Semi-Quantitative (test code = 0.16 79983-7) [facility] [id number] 22:13:13 Test Item Value Reference Range Interpretation Comments HCV Ab (test code = 20989-2) Negative HCV Semi-Quantitative (test code = 0.16 52338-2) [facility] [id number] 21:53:09 Test Item Value Reference Range Interpretation Comments TSH (test code = 2.86 See_Comment [Automated message] 3833482637) The system [employer] generated this result transmitted ref erence range: 0.45 - 4 .70 mIU/L. The refe rence range was not u sed to interpret this result as normal/abnor mal. Lab Interpretation (test Normal code = 92617-5) [facility] [id number] 21:53:09 Test Item Value Reference Range Interpretation Comments TSH (test code = 2.86 See_Comment [Automated message] 6905386333) The system [employer] generated this result transmitted ref erence range: 0.45 - 4 .70 mIU/L. The refe rence range was not u sed to interpret this result as normal/abnor mal. Lab Interpretation (test Normal code = 81948-2) [facility], [id number] 21:47:09 Test Item Value Reference Range Interpretation Comments VIT D 25OH (test code = 25 ng/mL 25-80 06188-1) MIKAYLA (test code = MIKAYLA) Deficiency: <20 ng/mLInsufficiency : 20-24 ng/mLOptimal: 25-80 ng/mL Lab Interpretation (test Normal code = 25363-8) [facility], [id number] 21:47:09 Test Item Value Reference Range Interpretation Comments VIT D 25OH (test code = 25 ng/mL 2580 58733-2) MIKAYLA (test code = MIKAYLA) Deficiency: <20 ng/mLInsufficiency : 20-24 ng/mLOptimal: 25-80 ng/mL Lab Interpretation (test Normal code = 47847-6) [facility] acute [facility] [id number] 21:39:06 Test Item Value Reference Range Interpretation Comments FREE T4 (test code = 1.06 See_Comment [Autom ated message] 2457429422) The system [employer] generated this result transmitted ref erence range: 0.78 - 2 .20 ng/dL:. The ref erence range was not u sed to interpret this result as normal/abnor mal. Lab Interpretation (test Normal code = 13668-2) [facility] acute [facility] 21:39:06 Test Item Value Reference Range Interpretation Comments FREE T3 (test code = 8936756848) 4.06 pg/mL 2.77-5.27 Lab Interpretation (test code = Normal 75222-6) [facility] acute hospital [id number] 21:39:06 Test Item Value Reference Range Interpretation Comments FREE T4 (test code = 1.06 See_Comment [Autom ated message] 9874327139) The system [employer] generated this result transmitted ref erence range: 0.78 - 2 .20 ng/dL:. The ref erence range was not u sed to interpret this result as normal/abnor mal. Lab Interpretation (test Normal code = 73873-1) [place] [id number] 21:39:06 Test Item Value Reference Range Interpretation Comments FREE T3 (test code = 1081147068) 4.06 pg/mL 2.77-5.27 Lab Interpretation (test code = Normal 48250-3) [facility] ([id number])2023-01-17 21:20:41 Test Item Value Reference Range Interpretation Comments NA (test code = 141 mmol/L 135-145 8536189498) K (test code = 3.6 mmol/L 3.5-5.0 4619909079) CL (test code = 100 mmol/L 98-108 8972833283) CO2 TOTAL (test code = 22 mmol/L 23-31 L 3652840869) AGAP (test code = 19 2-16 H 2656880152) BUN (test code = 56 mg/dL 7-23 H 6205426090) GLUCOSE (test code = 119 mg/dL 70-110 H 4045670182) CREATININE (test code = 2.61 mg/dL 0.60-1.25 H 8404864280) TOTAL BILI (test code = 0.7 mg/dL 0.1-1.4 1983228046) CALCIUM (test code = 9.5 mg/dL 8.6-10.6 0969238629) T PROTEIN (test code = 7.9 g/dL 6.3-8.2 0589166451) ALBUMIN (test code = 4.5 g/dL 3.5-5.0 0861671173) ALK PHOS (test code = 65 U/L 34-122 9014118485) ALTv (test code = 30 U/L 5-50 1742-6) AST(SGOT) (test code = 33 U/L 13-40 1891670086) eGFR (test code = 25.1 mL/min/1.73m2 3900369706) MIKAYLA (test code = MIKAYLA) Association of Glomerular Filtration Rate (GFR) and Staging of Kidney Disease* + --+ --+ ------+| GFR (mL/min/1.73 m2) ?| With Kidney Damage ?| ?Without Kidney Damage+ --------+ --------+ +| ?>90 ?| ?Stage one ?| ? Normal ?+ ---+ ---+ -------+| ?60-89 ?| ?Stage two ?| ? Decreased GFR ? + --+ --+ ------+| ?30-59 ?| ?Stage three ?| ? Stage three ? + --+ --+ ------+| ?15-29 ?| ?Stage four ? | ? Stage four ?+ ---+ ---+ -------+| ?<15 (or dialysis) ? ?| ?Stage five ? | ? Stage five ?+ ---+ ---+ -------+ *Each stage assumes the associated GFR level has been in effect for at least three months. ?Stages 1 to 5, with or without kidney disease, indicate chronic kidney disease. Notes: Determination of stages one and two (with eGFR >59mL/min/1.73 m2) requires estimation of kidney damage for at least three months as defined by structural or functional abnormalities of the kidney, manifested by either:Pathological abnormalities or Markers of kidney damage (including abnormalities in the composition of the blood or urine or abnormalities in imaging tests). Lab Interpretation Abnormal (test code = 72176-7) [facility] ([id number])(TOTAL CHOLESTEROL, TRIGLYCERIDES, HDL)2023-01-17 21:20:41 Test Item Value Reference Range Interpretation Comments CHOL (test code = 5758663904) 106 mg/dL 120-200 L HDL (test code = 9520539244) 37 mg/dL >=40 L HDLC RATIO (test code = 1909870352) 2.9 <=5.0 TRIG (test code = 3499726258) 130 mg/dL 30-170 LDL CHOL (test code = 76085-4) 43 mg/dL <=160 VLDL (test code = 5056000111) 26 mg/dL 5-60 Lab Interpretation (test code = Abnormal 78196-1) [facility] ([id number])2023-01-17 21:20:41 Test Item Value Reference Range Interpretation Comments NA (test code = 141 mmol/L 135-145 0843382953) K (test code = 3.6 mmol/L 3.5-5.0 4703656315) CL (test code = 100 mmol/L 98-108 0791399656) CO2 TOTAL (test code = 22 mmol/L 23-31 L 5259454917) AGAP (test code = 19 2-16 H 5885521839) BUN (test code = 56 mg/dL 7-23 H 4056006613) GLUCOSE (test code = 119 mg/dL 70-110 H 7296740661) CREATININE (test code = 2.61 mg/dL 0.60-1.25 H 0344582267) TOTAL BILI (test code = 0.7 mg/dL 0.1-1.7 0606934767) CALCIUM (test code = 9.5 mg/dL 8.6-10.6 6639422326) T PROTEIN (test code = 7.9 g/dL 6.3-8.2 2432939468) ALBUMIN (test code = 4.5 g/dL 3.5-5.0 4425196292) ALK PHOS (test code = 65 U/L 34-122 5175509639) ALTv (test code = 30 U/L 5-50 1742-6) AST(SGOT) (test code = 33 U/L 13-40 4723681604) eGFR (test code = 25.1 mL/min/1.73m2 4490683046) MIKAYLA (test code = MIKAYLA) Association of Glomerular Filtration Rate (GFR) and Staging of Kidney Disease* + --+ --+ ------+| GFR (mL/min/1.73 m2) ?| With Kidney Damage ?| ?Without Kidney Damage+ --------+ --------+ +| ?>90 ?| ?Stage one ?| ? Normal ?+ ---+ ---+ -------+| ?60-89 ?| ?Stage two ?| ? Decreased GFR ? + --+ --+ ------+| ?30-59 ?| ?Stage three ?| ? Stage three ? + --+ --+ ------+| ?15-29 ?| ?Stage four ? | ? Stage four ?+ ---+ ---+ -------+| ?<15 (or dialysis) ? ?| ?Stage five ? | ? Stage five ?+ ---+ ---+ -------+ *Each stage assumes the associated GFR level has been in effect for at least three months. ?Stages 1 to 5, with or without kidney disease, indicate chronic kidney disease. Notes: Determination of stages one and two (with eGFR >59mL/min/1.73 m2) requires estimation of kidney damage for at least three months as defined by structural or functional abnormalities of the kidney, manifested by either:Pathological abnormalities or Markers of kidney damage (including abnormalities in the composition of the blood or urine or abnormalities in imaging tests). Lab Interpretation Abnormal (test code = 49781-0) [facility]TOTAL CHOLESTEROL, TRIGLYCERIDES, HDL)2023-01-17 21:20:41 Test Item Value Reference Range Interpretation Comments CHOL (test code = 1043843193) 106 mg/dL 120-200 L HDL (test code = 3360055081) 37 mg/dL >=40 L HDLC RATIO (test code = 9392545430) 2.9 <=5.0 TRIG (test code = 7421158773) 130 mg/dL 30-170 LDL CHOL (test code = 63411-8) 43 mg/dL <=160 VLDL (test code = 2803813617) 26 mg/dL 5-60 Lab Interpretation (test code = Abnormal 89255-1) [facility]23-[facility]-17 20:12:16 Test Item Value Reference Range Interpretation Comments HGB A1C (test code = 7.6 % 4.0-5.7 H 4548-4) MIKAYLA (test code = MIKAYLA) Reference RangesNormal: <5.7%Prediabetes: 5.7 - 6.4%Diabetes: > 6.5% Lab Interpretation (test Abnormal code = 26787-6) [facility]23-01-17 20:12:16 Test Item Value Reference Range Interpretation Comments HGB A1C (test code = 7.6 % 4.0-5.7 H 4548-4) MIKAYLA (test code = MIKAYLA) Reference RangesNormal: <5.7%Prediabetes: 5.7 - 6.4%Diabetes: > 6.5% Lab Interpretation (test Abnormal code = 41154-3) [facility]2023-01-17 20:12:16 Test Item Value Reference Range Interpretation Comments HGB A1C (test code = 7.6 % 4.0-5.7 H 4548-4) MIKAYLA (test code = MIKAYLA) Reference RangesNormal: <5.7%Prediabetes: 5.7 - 6.4%Diabetes: > 6.5% Lab Interpretation (test Abnormal code = 85956-4) [facility]2023-01-17 20:12:16 Test Item Value Reference Range Interpretation Comments HGB A1C (test code = 7.6 % 4.0-5.7 H 4548-4) MIKAYLA (test code = MIKAYLA) Reference RangesNormal: <5.7%Prediabetes: 5.7 - 6.4%Diabetes: > 6.5% Lab Interpretation (test Abnormal code = 99605-6) [facility] [id number] 18:53:31 Test Item Value Reference Range Interpretation Comments WBC (test code = 9.99 See_Comment [Automated message] 0590-2) The system [employer] generated this result transmitted ref erence range: 4.20 - 1 0.70 10*3/?L. The re ference range was not u sed to interpret this result as normal/abnor mal. RBC (test code = 5.48 See_Comment [Automated message] 219-8) The system [employer] generated this result transmitted ref erence range: 4.26 - 5 .52 10*6/?L. The re ference range was not u sed to interpret this result as normal/abnor mal. HGB (test code = 15.0 g/dL 12.2-16.4 718-7) HCT (test code = 47.0 % 38.4-49.3 4544-3) MCV (test code = 85.8 fL 81.7-95.6 787-2) MCH (test code = 27.4 pg 26.1-32.7 785-6) MCHC (test code = 31.9 g/dL 31.2-35.0 786-4) RDW-SD (test code 47.6 fL 38.5-51.6 = 15389-0) RDW-CV (test code 15.3 % 12.1-15.4 = 788-0) PLT (test code = 182 See_Comment [Automated message] 527-3) The system [employer] generated this result transmitted ref erence range: 150 - 32 8 10*3/?L. The re ference range was not u sed to interpret this result as normal/abnor mal. MPV (test code = 11.0 fL 9.8-13.0 33273-6) NRBC/100 WBC (test 0.0 See_Comment [Automat ed message] code = 6234726375) The syste m which generated this result transmitted ref erence range: 0.0 - 10 .0 /100 WBCs. The refer ence range was not u sed to interpret this result as normal/abnor mal. NRBC x10^3 (test See_Comment [Automated message] code = 8345688377) The syste m which generated this result transmitted ref erence range: 10*3/?L. The reference range was not used to interpr et this result as normal/abnormal . GRAN MAT (NEUT) % 67.2 % (test code = 770-8) IMM GRAN % (test 0.40 % code = 6035856026) LYMPH % (test code 21.2 % = 736-9) MONO % (test code 8.4 % = 5905-5) EOS % (test code = 2.6 % 713-8) BASO % (test code 0.2 % = 706-2) GRAN MAT 6.71 10*3/uL 1.99-6.95 x10^3(ANC) (test code = 9102672813) IMM GRAN x10^3 0.04 10*3/uL 0.00-0.06 (test code = 0239056978) LYMPH x10^3 (test 2.12 10*3/uL 1.09-3.23 code = 731-0) MONO x10^3 (test 0.84 10*3/uL 0.36-1.02 code = 742-7) EOS x10^3 (test 0.26 10*3/uL 0.06-0.53 code = 711-2) BASO x10^3 (test 0.01-0.09 code = 704-7) [facility] WITH [id number] 18:53:31 Test Item Value Reference Range Interpretation Comments WBC (test code = 9.99 See_Comment [Automated message] 6690-2) The system [employer] generated this result transmitted ref erence range: 4.20 - 1 0.70 10*3/?L. The re ference range was not u sed to interpret this result as normal/abnor mal. RBC (test code = 5.48 See_Comment [Automated message] 789-8) The system [employer] generated this result transmitted ref erence range: 4.26 - 5 .52 10*6/?L. The re ference range was not u sed to interpret this result as normal/abnor mal. HGB (test code = 15.0 g/dL 12.2-16.4 718-7) HCT (test code = 47.0 % 38.4-49.3 4544-3) MCV (test code = 85.8 fL 81.7-95.6 787-2) MCH (test code = 27.4 pg 26.1-32.7 785-6) MCHC (test code = 31.9 g/dL 31.2-35.0 786-4) RDW-SD (test code 47.6 fL 38.5-51.6 = 67124-5) RDW-CV (test code 15.3 % 12.1-15.4 = 788-0) PLT (test code = 182 See_Comment [Automated message] 777-3) The system [employer] generated this result transmitted ref erence range: 150 - 32 8 10*3/?L. The re ference range was not u sed to interpret this result as normal/abnor mal. MPV (test code = 11.0 fL 9.8-13.0 67136-8) NRBC/100 WBC (test 0.0 See_Comment [Automat ed message] code = 4113473068) The [employer] which generated this result transmitted ref erence range: 0.0 - 10 .0 /100 WBCs. The refer ence range was not u sed to interpret this result as normal/abnor mal. NRBC x10^3 (test See_Comment [Automated message] code = 7208961264) The syste m which generated this result transmitted ref erence range: 10*3/?L. The reference range was not used to interpr et this result as normal/abnormal . GRAN MAT (NEUT) % 67.2 % (test code = 770-8) IMM GRAN % (test 0.40 % code = 4562342282) LYMPH % (test code 21.2 % = 736-9) MONO % (test code 8.4 % = 5905-5) EOS % (test code = 2.6 % 713-8) BASO % (test code 0.2 % = 706-2) GRAN MAT 6.71 10*3/uL 1.99-6.95 x10^3(ANC) (test code = 8922714087) IMM GRAN x10^3 0.04 10*3/uL 0.00-0.06 (test code = 8813046847) LYMPH x10^3 (test 2.12 10*3/uL 1.09-3.23 code = 731-0) MONO x10^3 (test 0.84 10*3/uL 0.36-1.02 code = 742-7) EOS x10^3 (test 0.26 10*3/uL 0.06-0.53 code = 711-2) BASO x10^3 (test 0.01-0.09 code = 704-7) [facility] HEMOGLOBIN A1C [id number] 16:39:00 Test Item Value Reference Range Interpretation Comments POCT HBA1C (test code = 4548-4) 7.7 % 4-6 A Lab Interpretation (test code = Abnormal 92258-3) [facility] HEMOGLOBIN A1C [id number] 16:39:00 Test Item Value Reference Range Interpretation Comments POCT HBA1C (test code = 4548-4) 7.7 % 4-6 A Lab Interpretation (test code = Abnormal 91831-4) [facility] HEMOGLOBIN A1C [id number] 16:39:00 Test Item Value Reference Range Interpretation Comments POCT HBA1C (test code = 4548-4) 7.7 % 4-6 A Lab Interpretation (test code = Abnormal 27113-1) [facility] HEMOGLOBIN A1C [id number] 16:39:00 Test Item Value Reference Range Interpretation Comments POCT HBA1C (test code = 4548-4) 7.7 % 4-6 A Lab Interpretation (test code = Abnormal 07228-0) [facility] GLUCOSE (AUTOMATED)2022-10-05 23:19:34 Test Item Value Reference Range Interpretation Comments POCT GLU (test code = 6960572233) 208 mg/dL 70-110 H Lab Interpretation (test code = Abnormal 20887-7) [facility] GLUCOSE (AUTOMATED)2022-10-05 17:36:07 Test Item Value Reference Range Interpretation Comments POCT GLU (test code = 2289098863) 275 mg/dL 70-110 H Lab Interpretation (test code = Abnormal 93002-4) [facility] GLUCOSE (AUTOMATED)2022-10-05 14:33:50 Test Item Value Reference Range Interpretation Comments POCT GLU (test code = 1546834788) 150 mg/dL 70-110 H Lab Interpretation (test code = Abnormal 17700-6) [facility] GLUCOSE (AUTOMATED)2022-10-05 10:17:25 Test Item Value Reference Range Interpretation Comments POCT GLU (test code = 8925408818) 87 mg/dL 70-110 Lab Interpretation (test code = Normal 06388-2) [facility] GLUCOSE (AUTOMATED)2022-10-05 06:35:37 Test Item Value Reference Range Interpretation Comments POCT GLU (test code = 7767272971) 90 mg/dL 70-110 Lab Interpretation (test code = Normal 41587-2) [facility] GLUCOSE (AUTOMATED)2022-10-05 06:10:08 Test Item Value Reference Range Interpretation Comments POCT GLU (test code = 2762712589) 70 mg/dL 70-110 Lab Interpretation (test code = Normal 36697-4) [facility] GLUCOSE (AUTOMATED)2022-10-05 01:46:32 Test Item Value Reference Range Interpretation Comments POCT GLU (test code = 8246329069) 165 mg/dL 70-110 H Lab Interpretation (test code = Abnormal 69082-8) [facility] GLUCOSE (AUTOMATED)2022-10-04 22:53:37 Test Item Value Reference Range Interpretation Comments POCT GLU (test code = 5025386084) 256 mg/dL 70-110 H Lab Interpretation (test code = Abnormal 75178-9) [facility] GLUCOSE (AUTOMATED)2022-10-04 21:59:58 Test Item Value Reference Range Interpretation Comments POCT GLU (test code = 5119204315) 260 mg/dL 70-110 H Lab Interpretation (test code = Abnormal 97791-8) [facility] GLUCOSE (AUTOMATED)2022-10-04 17:46:42 Test Item Value Reference Range Interpretation Comments POCT GLU (test code = 9929203177) 308 mg/dL 70-110 H Lab Interpretation (test code = Abnormal 40569-1) [facility] [id number] 16:22:40 Test Item Value Reference Range Interpretation Comments TROPONIN I (test code = 0.046 ng/mL <=0.034 H 6889623081) MIKAYLA (test code = MIKAYLA) Reference (Normal) Range (defined by the 99th percentile reference limit): <= 0.034 ng/mL Note: Cardiac troponin begins to rise 3-4 hours after the onset of ischemia. Repeat in 4-6 hours if the sample was drawn within 3-4 hours of the onset of the symptom and found normal. Diagnosis of myocardial injury is made with acute changes in cTn concentrations with at least one serial sample above the 99th percentile upper reference limit (URL), taken together with the patient's clinical presentation. Biotin has been reported to cause a negative bias, interpret results relative to patient's use of biotin. Lab Interpretation Abnormal (test code = 41719-3) [facility] GLUCOSE (AUTOMATED)2022-10-04 13:52:03 Test Item Value Reference Range Interpretation Comments POCT GLU (test code = 0692809139) 200 mg/dL 70-110 H Lab Interpretation (test code = Abnormal 11183-1) [facility] GLUCOSE (AUTOMATED)2022-10-04 10:04:06 Test Item Value Reference Range Interpretation Comments POCT GLU (test code = 8971352997) 152 mg/dL 70-110 H Lab Interpretation (test code = Abnormal 80166-8) [facility] GLUCOSE (AUTOMATED)2022-10-04 06:04:14 Test Item Value Reference Range Interpretation Comments POCT GLU (test code = 1702408972) 229 mg/dL 70-110 H Lab Interpretation (test code = Abnormal 43385-8) [facility] GLUCOSE (AUTOMATED)2022-10-04 03:35:36 Test Item Value Reference Range Interpretation Comments POCT GLU (test code = 5270487027) 261 mg/dL 70-110 H Lab Interpretation (test code = Abnormal 39594-9) [facility] GLUCOSE (AUTOMATED)2022-10-03 22:23:59 Test Item Value Reference Range Interpretation Comments POCT GLU (test code = 8968441645) 249 mg/dL 70-110 H Lab Interpretation (test code = Abnormal 12875-9) [facility] GLUCOSE (AUTOMATED)2022-10-03 17:50:25 Test Item Value Reference Range Interpretation Comments POCT GLU (test code = 1036727752) 253 mg/dL 70-110 H Lab Interpretation (test code = Abnormal 22352-0) [facility] GLUCOSE (AUTOMATED)2022-10-03 14:31:48 Test Item Value Reference Range Interpretation Comments POCT GLU (test code = 70-110 HH Notifi ed Provider [id number]) Lab Interpretation (test Abnormal code = 59039-8) [facility] GLUCOSE (AUTOMATED)2022-10-03 13:56:32 Test Item Value Reference Range Interpretation Comments POCT GLU (test code = 2347894673) 152 mg/dL 70-110 H Lab Interpretation (test code = Abnormal 01416-3) [facility] WITH [id number] 10:50:21 Test Item Value Reference Range Interpretation Comments WBC (test code = 8.51 See_Comment [Automated 6690-2) message] The sy stem which generated this result transmitted reference range : 4.20 - 10.70 10*3/?L. The reference range was not used to interpret this result as normal/abnormal . RBC (test code = 6.06 See_Comment H [Automated 029-8) message] The sy stem which generated this result transmitted reference range : 4.26 - 5.52 10*6/?L. The reference range was not used to interpret this result as normal/abnormal . HGB (test code = 14.7 g/dL 12.2-16.4 718-7) HCT (test code = 45.2 % 38.4-49.3 4544-3) MCV (test code = 74.6 fL 81.7-95.6 L 787-2) MCH (test code = 24.3 pg 26.1-32.7 L 785-6) MCHC (test code = 32.5 g/dL 31.2-35.0 786-4) RDW-SD (test code = 44.2 fL 38.5-51.6 04982-1) RDW-CV (test code = 16.9 % 12.1-15.4 H 788-0) PLT (test code = 165 See_Comment [Automated 777-3) message] The sy stem which generated this result transmitted reference range : 150 - 328 10*3/ ?L. The reference r kyra was not used to interpret this result as normal/abnormal . MPV (test code = Not Measure d 14242-0) IPF % (test code = 11.4 % 1.2-10.7 H Platelet count 9094648581) measured by fluorescence method. NRBC/100 WBC (test 0.0 See_Comment [Automat ed code = 9988398722) message] The system which generated this result transmitted reference range : 0.0 - 10.0 /100 WBCs. The refer ence range was not u sed to interpret th is result as normal/abnormal . NRBC x10^3 (test code See_Comment [Auto mated = 9949171926) message] The s ystem which generated this result transmitted reference range : 10*3/?L. The reference range was not used to interpret this result as normal/abnormal . GRAN MAT (NEUT) % 60.0 % (test code = 770-8) IMM GRAN % (test code 0.40 % = 1575681935) LYMPH % (test code = 28.8 % 736-9) MONO % (test code = 6.6 % 5905-5) EOS % (test code = 3.8 % 713-8) BASO % (test code = 0.4 % 706-2) GRAN MAT x10^3(ANC) 5.12 10*3/uL 1.99-6.95 (test code = 2801829997) IMM GRAN x10^3 (test 0.03 10*3/uL 0.00-0.06 code = 8902618183) LYMPH x10^3 (test code 2.45 10*3/uL 1.09-3.23 = 731-0) MONO x10^3 (test code 0.56 10*3/uL 0.36-1.02 = 742-7) EOS x10^3 (test code = 0.32 10*3/uL 0.06-0.53 711-2) BASO x10^3 (test code 0.03 10*3/uL 0.01-0.09 = 704-7) BRADLEY CELLS (test code 2+ See_Comment A [Auto mated = 8271-9) message] The sy stem which generated this result transmitted reference range : (none). The reference range was not used to interpret this result as normal/abnormal . GIANT PLATELETS (test Present See_Comment A [Auto mated code = 6318-9) message] The system which generated this result transmitted reference range : (none). The reference range was not used to interpret this result as normal/abnormal . Lab Interpretation Abnormal (test code = 76059-0) [facility] METABOLIC PANEL (NA, K, CL, CO2, GLUCOSE, BUN, CREATININE, CA)2022-10-03 10:31:54 Test Item Value Reference Range Interpretation Comments NA (test code = 128 mmol/L 135-145 L 6574456157) K (test code = 4.1 mmol/L 3.5-5.0 6623383873) CL (test code = 93 mmol/L 98-108 L 8180859351) CO2 TOTAL (test code = 28 mmol/L 23-31 9276111501) AGAP (test code = 7 2-16 0980124126) BUN (test code = 63 mg/dL 7-23 H 2152683364) GLUCOSE (test code = 186 mg/dL 70-110 H 6032674122) CREATININE (test code = 2.73 mg/dL 0.60-1.25 H 0600960910) CALCIUM (test code = 8.6 mg/dL 8.6-10.6 9903758929) eGFR (test code = 23.9 mL/min/1.73m2 1334395822) MIKAYLA (test code = MIKAYLA) Association of Glomerular Filtration Rate (GFR) and Staging of Kidney Disease* + --+ --+ ------+| GFR (mL/min/1.73 m2) ?| With Kidney Damage ?| ?Without Kidney Damage+ --------+ --------+ +| ?>90 ?| ?Stage one ?| ? Normal ?+ ---+ ---+ -------+| ?60-89 ?| ?Stage two ?| ? Decreased GFR ? + --+ --+ ------+| ?30-59 ?| ?Stage three ?| ? Stage three ? + --+ --+ ------+| ?15-29 ?| ?Stage four ? | ? Stage four ?+ ---+ ---+ -------+| ?<15 (or dialysis) ? ?| ?Stage five ? | ? Stage five ?+ ---+ ---+ -------+ *Each stage assumes the associated GFR level has been in effect for at least three months. ?Stages 1 to 5, with or without kidney disease, indicate chronic kidney disease. Notes: Determination of stages one and two (with eGFR >59mL/min/1.73 m2) requires estimation of kidney damage for at least three months as defined by structural or functional abnormalities of the kidney, manifested by either:Pathological abnormalities or Markers of kidney damage (including abnormalities in the composition of the blood or urine or abnormalities in imaging tests). Lab Interpretation Abnormal (test code = 59905-0) [facility]:54 Test Item Value Reference Range Interpretation Comments MAGNESIUM (test code = 2343083722) 2.2 mg/dL 1.7-2.4 Lab Interpretation (test code = Normal 78522-0) [facility]2022-10-03 10:10:23 Test Item Value Reference Range Interpretation Comments POCT GLU (test code = 0711832052) 170 mg/dL 70-110 H Lab Interpretation (test code = Abnormal 24329-2) [facility] (Na, K, Cl, CO2, Glucose, BUN, Creatinine, Ca)2022-10-03 08:55:56 Test Item Value Reference Range Interpretation Comments NA (test code = 126 mmol/L 135-145 L 9833671591) K (test code = 4.3 mmol/L 3.5-5.0 5609765830) CL (test code = 92 mmol/L 98-108 L 0801630147) CO2 TOTAL (test code = 27 mmol/L 23-31 6033892383) AGAP (test code = 7 2-16 2791714894) BUN (test code = 62 mg/dL 7-23 H 5623635855) GLUCOSE (test code = 246 mg/dL 70-110 H 6590291426) CREATININE (test code = 2.60 mg/dL 0.60-1.25 H 2728863251) CALCIUM (test code = 8.4 mg/dL 8.6-10.6 L 2464041558) eGFR (test code = 25.3 mL/min/1.73m2 1130227700) MIKAYLA (test code = MIKAYLA) Association of Glomerular Filtration Rate (GFR) and Staging of Kidney Disease* + --+ --+ ------+| GFR (mL/min/1.73 m2) ?| With Kidney Damage ?| ?Without Kidney Damage+ --------+ --------+ +| ?>90 ?| ?Stage one ?| ? Normal ?+ ---+ ---+ -------+| ?60-89 ?| ?Stage two ?| ? Decreased GFR ? + --+ --+ ------+| ?30-59 ?| ?Stage three ?| ? Stage three ? + --+ --+ ------+| ?15-29 ?| ?Stage four ? | ? Stage four ?+ ---+ ---+ -------+| ?<15 (or dialysis) ? ?| ?Stage five ? | ? Stage five ?+ ---+ ---+ -------+ *Each stage assumes the associated GFR level has been in effect for at least three months. ?Stages 1 to 5, with or without kidney disease, indicate chronic kidney disease. Notes: Determination of stages one and two (with eGFR >59mL/min/1.73 m2) requires estimation of kidney damage for at least three months as defined by structural or functional abnormalities of the kidney, manifested by either:Pathological abnormalities or Markers of kidney damage (including abnormalities in the composition of the blood or urine or abnormalities in imaging tests). Lab Interpretation Abnormal (test code = 37496-9) [facility] GLUCOSE (AUTOMATED)2022-10-03 06:25:40 Test Item Value Reference Range Interpretation Comments POCT GLU (test code = 5549961106) 239 mg/dL 70-110 H Lab Interpretation (test code = Abnormal 12450-9) [facility] GLUCOSE (AUTOMATED)2022-10-03 03:29:18 Test Item Value Reference Range Interpretation Comments POCT GLU (test code = 6084768646) 184 mg/dL 70-110 H Lab Interpretation (test code = Abnormal 53346-2) [facility] Metabolic Panel (Na, K, Cl, CO2, Glucose, BUN, Creatinine, Ca)2022-10-03 02:39:56 Test Item Value Reference Range Interpretation Comments NA (test code = 129 mmol/L 135-145 L 1590572803) K (test code = 4.0 mmol/L 3.5-5.0 3370161431) CL (test code = 92 mmol/L 98-108 L 0696344292) CO2 TOTAL (test code = 30 mmol/L 23-31 7722501439) AGAP (test code = 7 2-16 7788169033) BUN (test code = 63 mg/dL 7-23 H 5341939392) GLUCOSE (test code = 194 mg/dL 70-110 H 7317634257) CREATININE (test code = 2.70 mg/dL 0.60-1.25 H 1470020520) CALCIUM (test code = 8.6 mg/dL 8.6-10.6 0169265564) eGFR (test code = 24.2 mL/min/1.73m2 3857445852) MIKAYLA (test code = MIKAYLA) Association of Glomerular Filtration Rate (GFR) and Staging of Kidney Disease* + --+ --+ ------+| GFR (mL/min/1.73 m2) ?| With Kidney Damage ?| ?Without Kidney Damage+ --------+ --------+ +| ?>90 ?| ?Stage one ?| ? Normal ?+ ---+ ---+ -------+| ?60-89 ?| ?Stage two ?| ? Decreased GFR ? + --+ --+ ------+| ?30-59 ?| ?Stage three ?| ? Stage three ? + --+ --+ ------+| ?15-29 ?| ?Stage four ? | ? Stage four ?+ ---+ ---+ -------+| ?<15 (or dialysis) ? ?| ?Stage five ? | ? Stage five ?+ ---+ ---+ -------+ *Each stage assumes the associated GFR level has been in effect for at least three months. ?Stages 1 to 5, with or without kidney disease, indicate chronic kidney disease. Notes: Determination of stages one and two (with eGFR >59mL/min/1.73 m2) requires estimation of kidney damage for at least three months as defined by structural or functional abnormalities of the kidney, manifested by either:Pathological abnormalities or Markers of kidney damage (including abnormalities in the composition of the blood or urine or abnormalities in imaging tests). Lab Interpretation Abnormal (test code = 96567-0) [facility] [id number] 02:22:47 Test Item Value Reference Range Interpretation Comments LACTIC ACID (test code = 2.75 mmol/L 0.50-2.20 H 0650639506) Lab Interpretation (test code = Abnormal 74699-5) [facility] GLUCOSE (AUTOMATED)2022-10-03 02:07:29 Test Item Value Reference Range Interpretation Comments POCT GLU (test code = 4343729796) 189 mg/dL 70-110 H Lab Interpretation (test code = Abnormal 73807-1) [facility] GLUCOSE (AUTOMATED)2022-10-03 01:07:57 Test Item Value Reference Range Interpretation Comments POCT GLU (test code = 3002840245) 177 mg/dL 70-110 H Lab Interpretation (test code = Abnormal 15817-2) [facility] GLUCOSE (AUTOMATED)2022-10-03 00:10:57 Test Item Value Reference Range Interpretation Comments POCT GLU (test code = 1669223276) 250 mg/dL 70-110 H Lab Interpretation (test code = Abnormal 07427-8) [facility] GLUCOSE (AUTOMATED)2022-10-02 22:56:27 Test Item Value Reference Range Interpretation Comments POCT GLU (test code = 4804323721) 79 mg/dL 70-110 Lab Interpretation (test code = Normal 71108-8) [facility] 21:59:23 Test Item Value Reference Range Interpretation Comments POCT GLU (test code = 253 mg/dL 70-110 H Notifi ed Provider [id number]) Lab Interpretation (test Abnormal code = 63980-7) [facility] GLUCOSE (AUTOMATED)2022-10-02 21:14:16 Test Item Value Reference Range Interpretation Comments POCT GLU (test code = 3116160075) 357 mg/dL 70-110 H Lab Interpretation (test code = Abnormal 25910-3) [facility] GLUCOSE (AUTOMATED)2022-10-02 20:24:20 Test Item Value Reference Range Interpretation Comments POCT GLU (test code = 452 mg/dL 70-110 HH Notifi ed Provider [id number]) Lab Interpretation (test Abnormal code = 71522-6) [facility] Metabolic Panel (Na, K, Cl, CO2, Glucose, BUN, Creatinine, Ca)2022-10-02 19:25:47 Test Item Value Reference Range Interpretation Comments NA (test code = 125 mmol/L 135-145 L 6113430078) K (test code = 3.3 mmol/L 3.5-5.0 L 2946072050) CL (test code = 88 mmol/L 98-108 L 2363844189) CO2 TOTAL (test code = 27 mmol/L 23-31 3433542595) AGAP (test code = 10 2-16 5861046330) BUN (test code = 62 mg/dL 7-23 H 2797086359) GLUCOSE (test code = 476 mg/dL 70-110 HH 0594210895) CREATININE (test code = 2.76 mg/dL 0.60-1.25 H 9353055854) CALCIUM (test code = 8.9 mg/dL 8.6-10.6 8586133645) eGFR (test code = 23.6 mL/min/1.73m2 3507655206) MIKAYLA (test code = MIKAYLA) Association of Glomerular Filtration Rate (GFR) and Staging of Kidney Disease* + --+ --+ ------+| GFR (mL/min/1.73 m2) ?| With Kidney Damage ?| ?Without Kidney Damage+ --------+ --------+ +| ?>90 ?| ?Stage one ?| ? Normal ?+ ---+ ---+ -------+| ?60-89 ?| ?Stage two ?| ? Decreased GFR ? + --+ --+ ------+| ?30-59 ?| ?Stage three ?| ? Stage three ? + --+ --+ ------+| ?15-29 ?| ?Stage four ? | ? Stage four ?+ ---+ ---+ -------+| ?<15 (or dialysis) ? ?| ?Stage five ? | ? Stage five ?+ ---+ ---+ -------+ *Each stage assumes the associated GFR level has been in effect for at least three months. ?Stages 1 to 5, with or without kidney disease, indicate chronic kidney disease. Notes: Determination of stages one and two (with eGFR >59mL/min/1.73 m2) requires estimation of kidney damage for at least three months as defined by structural or functional abnormalities of the kidney, manifested by either:Pathological abnormalities or Markers of kidney damage (including abnormalities in the composition of the blood or urine or abnormalities in imaging tests). Lab Interpretation Abnormal (test code = 73760-0) [facility] GLUCOSE (AUTOMATED)2022-10-02 17:21:40 Test Item Value Reference Range Interpretation Comments POCT GLU (test code = 70-110 Notifi ed Provider [id number]) Lab Interpretation (test Abnormal code = 45575-4) [facility] GLUCOSE (AUTOMATED)2022-10-02 17:20:58 Test Item Value Reference Range Interpretation Comments POCT GLU (test code = 70-110 Notifi ed Provider [id number]) Lab Interpretation (test Abnormal code = 62616-4) [facility] + Lactic [id number] 16:55:48 Test Item Value Reference Range Interpretation Comments PH (test code = 2) 7.27 7.35-7.45 L PCO2 (test code = 43 See_Comment [Automate d [id number]) message] The system which generated this result transmit che reference range : 35 - 45 mmHg. T he reference range was not used to interpret this result as normal/abnormal . PO2 (test code = 108 See_Comment H [Automated [id number]) message] The system which generated this result transmit che reference range : 80 - 100 mmHg. The reference range was not used to interpret this result as normal/abnormal . HCO3 (test code = 19 See_Comment L [Automate d 2679761147) message] The system which generated this result transmit che reference range : 22 - 26 mEq/L. The reference range was not used to interpret this result as normal/abnormal . BE (test code = -7.3 See_Comment L [Automated 0535163674) message] The system which generated this result transmit che reference range : -3.0 - 3.0 mEq/ L. The reference range was not u sed to interpret th is result as normal/abnormal . THB (test code = 16.0 g/dL 13.5-18.0 3367400684) %O2HB (test code = 95.2 % 94.0-99.0 5226297963) %COHB ART (test code = 2.0 % 0.0-1.5 H 0808959932) %METHB ART (test code 0.1 % 0.4-1.5 L = 8099647138) VOL%O2 ART (test code 21.5 % 15.0-23.0 = 0785024639) NA (test code = 111 mmol/L 135-145 LL 9449084752) K+ (test code = 3.5-5.0 LL 8730266921) AC CA IONZ (test code 4.50-5.30 LL = 9894137581) GLUCOSE (test code = 70-110 LL 2419153897) LACTIC ACID (test code 2.40 mmol/L 0.50-2.20 H QUES = 1822352371) MIKAYLA (test code = MIKAYLA) oout of range Lab Interpretation Abnormal (test code = 02792-5) [facility]22-10-02 15:15:18 Test Item Value Reference Range Interpretation Comments POCT GLU (test code = 1539390737) 70-110 HH Lab Interpretation (test code = Abnormal 03636-7) [facility] [id number] 12:08:30 Test Item Value Reference Range Interpretation Comments TROPONIN I (test code = 0.045 ng/mL <=0.034 H 5776804881) MIKAYLA (test code = MIKAYLA) Reference (Normal) Range (defined by the 99th percentile reference limit): <= 0.034 ng/mL Note: Cardiac troponin begins to rise 3-4 hours after the onset of ischemia. Repeat in 4-6 hours if the sample was drawn within 3-4 hours of the onset of the symptom and found normal. Diagnosis of myocardial injury is made with acute changes in cTn concentrations with at least one serial sample above the 99th percentile upper reference limit (URL), taken together with the patient's clinical presentation. Biotin has been reported to cause a negative bias, interpret results relative to patient's use of biotin. Lab Interpretation Abnormal (test code = 62570-2) [facility] [id number]-[id number] 12:05:07 Test Item Value Reference Range Interpretation Comments NT-proBNP (test code = 1260 pg/mL <=125 H 6355423809) MIKAYLA (test code = MIKAYLA) Biotin has been reported to cause a negative bias, interpret results relative to patient's use of biotin. Lab Interpretation (test Abnormal code = 30935-5) [facility] 12:04:06 ALCOHOL<10mg/dL10/02/2022 6:04 AM [facility]<10 Dqqhleyh58-553 Toxic>100 Depression of CYTOPATHOLOGY TECHNOLOGIST>400 [facility] SARS-COV-2 ANTIGEN (BINAX NOW) 2022-09-25 01:08:00 Test Item Value Reference Range Interpretation Comments POCT SARS-COV-2 ANTIGEN (test Not Detected Not Detected code = 93382-5) On board controls acceptable Yes with C Line (test code = 3574) Lab Interpretation (test code = Normal 28438-2) [facility] MOLECULAR [id number] 00:55:41 Test Item Value Reference Range Interpretation Comments POCT Molecular Strep (test code = Negative Negative 53332-0) Lab Interpretation (test code = Normal 22237-1) [facility] GLUCOSE (AUTOMATED)2022-09-08 17:55:56 Test Item Value Reference Range Interpretation Comments POCT GLU (test code = 8173762155) 154 mg/dL 70-110 H Lab Interpretation (test code = Abnormal 40566-7) [facility] GLUCOSE (AUTOMATED)2022-09-08 14:26:14 Test Item Value Reference Range Interpretation Comments POCT GLU (test code = 9762811167) 103 mg/dL 70-110 Lab Interpretation (test code = Normal 52794-8) [facility] GLUCOSE (AUTOMATED)2022-09-08 04:33:55 Test Item Value Reference Range Interpretation Comments POCT GLU (test code = 3204254622) 117 mg/dL 70-110 H Lab Interpretation (test code = Abnormal 04653-1) [facility] GLUCOSE (AUTOMATED)2022-09-07 22:32:57 Test Item Value Reference Range Interpretation Comments POCT GLU (test code = 5159118245) 127 mg/dL 70-110 H Lab Interpretation (test code = Abnormal 18035-4) [facility] GLUCOSE (AUTOMATED)2022-09-07 18:11:36 Test Item Value Reference Range Interpretation Comments POCT GLU (test code = 8893751900) 136 mg/dL 70-110 H Lab Interpretation (test code = Abnormal 43676-1) [facility] GLUCOSE (AUTOMATED)2022-09-07 14:18:16 Test Item Value Reference Range Interpretation Comments POCT GLU (test code = 3111323584) 101 mg/dL 70-110 Lab Interpretation (test code = Normal 94250-1) [facility] GLUCOSE (AUTOMATED)2022-09-07 03:26:53 Test Item Value Reference Range Interpretation Comments POCT GLU (test code = 4374643737) 118 mg/dL 70-110 H Lab Interpretation (test code = Abnormal 57740-5) [facility] GLUCOSE (AUTOMATED)2022-09-06 22:22:37 Test Item Value Reference Range Interpretation Comments POCT GLU (test code = 2618860440) 124 mg/dL 70-110 H Lab Interpretation (test code = Abnormal 25833-8) [facility] GLUCOSE (AUTOMATED)2022-09-06 18:28:10 Test Item Value Reference Range Interpretation Comments POCT GLU (test code = 6417021394) 195 mg/dL 70-110 H Lab Interpretation (test code = Abnormal 64006-0) [facility] GLUCOSE (AUTOMATED)2022-09-06 14:25:17 Test Item Value Reference Range Interpretation Comments POCT GLU (test code = 9024277222) 98 mg/dL 70-110 Lab Interpretation (test code = Normal 30078-2) [facility] Confirmation (Lab Only)2022-09-06 13:27:39 Test Item Value Reference Range Interpretation Comments ABO & RH (test code O Positive Performe d at [facility] = 20) Laboratory Serv [facility] Blood [facility]3 [facility] [address]Blnj Free: [phone] A No. [id number] [facility] and Screen - ONCE Nwzqbfv0504-53-61 12:02:46 Test Item Value Reference Range Interpretation Comments ABO & RH (test code O POSITIVE Performe d at [facility] = 20) Laboratory Serv [facility] Blood [facility]3 [facility] s [address]Xmtf Free: [phone] A No. [id number] IAT (test code = Negative Performed a t [facility] 1185) Laboratory Serv [facility] Blood [facility]3 [facility] s [address]Dcwb Free: [phone] A No. [id number] [facility] GLUCOSE (AUTOMATED)2022-09-06 03:37:19 Test Item Value Reference Range Interpretation Comments POCT GLU (test code = 2758478131) 152 mg/dL 70-110 H Lab Interpretation (test code = Abnormal 83567-8) [facility] GLUCOSE (AUTOMATED)2022-09-05 23:43:16 Test Item Value Reference Range Interpretation Comments POCT GLU (test code = 9259035907) 107 mg/dL 70-110 Lab Interpretation (test code = Normal 19609-4) [facility] GLUCOSE (AUTOMATED)2022-09-05 18:11:22 Test Item Value Reference Range Interpretation Comments POCT GLU (test code = 2090466517) 158 mg/dL 70-110 H Lab Interpretation (test code = Abnormal 99728-4) [facility] GLUCOSE (AUTOMATED)2022-09-05 18:11:22 Test Item Value Reference Range Interpretation Comments POCT GLU (test code = 0316292394) 158 mg/dL 70-110 H Lab Interpretation (test code = Abnormal 72366-9) [facility] GLUCOSE (AUTOMATED)2022-09-05 15:39:51 Test Item Value Reference Range Interpretation Comments POCT GLU (test code = 9554923872) 86 mg/dL 70-110 Lab Interpretation (test code = Normal 96793-3) [facility] GLUCOSE (AUTOMATED)2022-09-05 15:39:51 Test Item Value Reference Range Interpretation Comments POCT GLU (test code = 0012952103) 86 mg/dL 70-110 Lab Interpretation (test code = Normal 91704-7) [facility] GLUCOSE (AUTOMATED)2022-09-05 03:23:14 Test Item Value Reference Range Interpretation Comments POCT GLU (test code = 5113342703) 215 mg/dL 70-110 H Lab Interpretation (test code = Abnormal 95659-0) [facility] GLUCOSE (AUTOMATED)2022-09-05 03:23:14 Test Item Value Reference Range Interpretation Comments POCT GLU (test code = 6137401696) 215 mg/dL 70-110 H Lab Interpretation (test code = Abnormal 08265-5) [facility] GLUCOSE (AUTOMATED)2022-09-04 14:23:52 Test Item Value Reference Range Interpretation Comments POCT GLU (test code = 9881787314) 107 mg/dL 70-110 Lab Interpretation (test code = Normal 77853-7) [facility] GLUCOSE (AUTOMATED)2022-09-04 14:23:52 Test Item Value Reference Range Interpretation Comments POCT GLU (test code = 1322415094) 107 mg/dL 70-110 Lab Interpretation (test code = Normal 17073-5) [facility]. METABOLIC PANEL (47531)2022-09-04 11:14:40 Test Item Value Reference Range Interpretation Comments NA (test code = 135 mmol/L 135-145 2298236692) K (test code = 3.9 mmol/L 3.5-5.0 4013283169) CL (test code = 101 mmol/L 98-108 9543353407) CO2 TOTAL (test code = 31 mmol/L 23-31 6066908705) AGAP (test code = 2-16 7130334754) BUN (test code = 31 mg/dL 7-23 H 6380832784) GLUCOSE (test code = 120 mg/dL 70-110 H 6512273117) CREATININE (test code = 1.74 mg/dL 0.60-1.25 H 2458422169) TOTAL BILI (test code = 1.0 mg/dL 0.1-1.7 4719224453) CALCIUM (test code = 7.8 mg/dL 8.6-10.6 L 0208555334) T PROTEIN (test code = 6.4 g/dL 6.3-8.2 8370693812) ALBUMIN (test code = 2.9 g/dL 3.5-5.0 L 4173966107) ALK PHOS (test code = 91 U/L 34-122 7148899574) ALTv (test code = 15 U/L 5-50 2-6) AST(SGOT) (test code = 35 U/L 13-40 1310762801) eGFR (test code = mL/min/1.73m2 1010671657) MIKAYLA (test code = MIKAYLA) Association of Glomerular Filtration Rate (GFR) and Staging of Kidney Disease* + --+ --+ ------+| GFR (mL/min/1.73 m2) ?| With Kidney Damage ?| ?Without Kidney Damage+ --------+ --------+ +| ?>90 ?| ?Stage one ?| ? Normal ?+ ---+ ---+ -------+| ?60-89 ?| ?Stage two ?| ? Decreased GFR ? + --+ --+ ------+| ?30-59 ?| ?Stage three ?| ? Stage three ? + --+ --+ ------+| ?15-29 ?| ?Stage four ? | ? Stage four ?+ ---+ ---+ -------+| ?<15 (or dialysis) ? ?| ?Stage five ? | ? Stage five ?+ ---+ ---+ -------+ *Each stage assumes the associated GFR level has been in effect for at least three months. ?Stages 1 to 5, with or without kidney disease, indicate chronic kidney disease. Notes: Determination of stages one and two (with eGFR >59mL/min/1.73 m2) requires estimation of kidney damage for at least three months as defined by structural or functional abnormalities of the kidney, manifested by either:Pathological abnormalities or Markers of kidney damage (including abnormalities in the composition of the blood or urine or abnormalities in imaging tests). Lab Interpretation Abnormal (test code = 46173-3) [facility]:14:40 Test Item Value Reference Range Interpretation Comments MAGNESIUM (test code = 8049567603) 2.1 mg/dL 1.7-2.4 Lab Interpretation (test code = Normal 00874-6) [facility]. METABOLIC PANEL (38913)2022-09-04 11:14:40 Test Item Value Reference Range Interpretation Comments NA (test code = 135 mmol/L 135-145 3176129963) K (test code = 3.9 mmol/L 3.5-5.0 7858830095) CL (test code = 101 mmol/L 98-108 3273102476) CO2 TOTAL (test code = 31 mmol/L 23-31 0393350891) AGAP (test code = 2-16 0216969975) BUN (test code = 31 mg/dL 7-23 H 4381402749) GLUCOSE (test code = 120 mg/dL 70-110 H 7689433450) CREATININE (test code = 1.74 mg/dL 0.60-1.25 H 5898384852) TOTAL BILI (test code = 1.0 mg/dL 0.1-1.8 6859400422) CALCIUM (test code = 7.8 mg/dL 8.6-10.6 L 3968814187) T PROTEIN (test code = 6.4 g/dL 6.3-8.2 5818612814) ALBUMIN (test code = 2.9 g/dL 3.5-5.0 L 0088053484) ALK PHOS (test code = 91 U/L 34-122 0732273768) ALTv (test code = 15 U/L 5-50 1742-6) AST(SGOT) (test code = 35 U/L 13-40 0242482266) eGFR (test code = mL/min/1.73m2 0074763892) MIKAYLA (test code = MIKAYLA) Association of Glomerular Filtration Rate (GFR) and Staging of Kidney Disease* + --+ --+ ------+| GFR (mL/min/1.73 m2) ?| With Kidney Damage ?| ?Without Kidney Damage+ --------+ --------+ +| ?>90 ?| ?Stage one ?| ? Normal ?+ ---+ ---+ -------+| ?60-89 ?| ?Stage two ?| ? Decreased GFR ? + --+ --+ ------+| ?30-59 ?| ?Stage three ?| ? Stage three ? + --+ --+ ------+| ?15-29 ?| ?Stage four ? | ? Stage four ?+ ---+ ---+ -------+| ?<15 (or dialysis) ? ?| ?Stage five ? | ? Stage five ?+ ---+ ---+ -------+ *Each stage assumes the associated GFR level has been in effect for at least three months. ?Stages 1 to 5, with or without kidney disease, indicate chronic kidney disease. Notes: Determination of stages one and two (with eGFR >59mL/min/1.73 m2) requires estimation of kidney damage for at least three months as defined by structural or functional abnormalities of the kidney, manifested by either:Pathological abnormalities or Markers of kidney damage (including abnormalities in the composition of the blood or urine or abnormalities in imaging tests). Lab Interpretation Abnormal (test code = 63894-7) [facility] Test Item Value Reference Range Interpretation Comments MAGNESIUM (test code = 0398473416) 2.1 mg/dL 1.7-2.4 Lab Interpretation (test code = Normal 65616-6) [facility] GLUCOSE (AUTOMATED)2022-09-04 02:35:16 Test Item Value Reference Range Interpretation Comments POCT GLU (test code = 6224425052) 129 mg/dL 70-110 H Lab Interpretation (test code = Abnormal 09248-6) [facility] GLUCOSE (AUTOMATED)2022-09-04 02:35:16 Test Item Value Reference Range Interpretation Comments POCT GLU (test code = 9653341625) 129 mg/dL 70-110 H Lab Interpretation (test code = Abnormal 53233-8) [facility] GLUCOSE (AUTOMATED)2022-09-03 22:53:04 Test Item Value Reference Range Interpretation Comments POCT GLU (test code = 9732445366) 150 mg/dL 70-110 H Lab Interpretation (test code = Abnormal 18092-0) [facility] GLUCOSE (AUTOMATED)2022-09-03 22:53:04 Test Item Value Reference Range Interpretation Comments POCT GLU (test code = 3501251997) 150 mg/dL 70-110 H Lab Interpretation (test code = Abnormal 21363-9) [facility] GLUCOSE (AUTOMATED)2022-09-03 17:41:51 Test Item Value Reference Range Interpretation Comments POCT GLU (test code = 4706536900) 86 mg/dL 70-110 Lab Interpretation (test code = Normal 38108-7) [facility] GLUCOSE (AUTOMATED)2022-09-03 17:41:51 Test Item Value Reference Range Interpretation Comments POCT GLU (test code = 2785555792) 86 mg/dL 70-110 Lab Interpretation (test code = Normal 55142-8) [facility] GLUCOSE (AUTOMATED)2022-09-03 13:55:12 Test Item Value Reference Range Interpretation Comments POCT GLU (test code = 1281330861) 97 mg/dL 70-110 Lab Interpretation (test code = Normal 91096-0) [facility] GLUCOSE (AUTOMATED)2022-09-03 13:55:12 Test Item Value Reference Range Interpretation Comments POCT GLU (test code = 1438004901) 97 mg/dL 70-110 Lab Interpretation (test code = Normal 94877-4) [facility] GLUCOSE (AUTOMATED)2022-09-03 03:12:06 Test Item Value Reference Range Interpretation Comments POCT GLU (test code = 3122584527) 132 mg/dL 70-110 H Lab Interpretation (test code = Abnormal 95968-2) [facility] GLUCOSE (AUTOMATED)2022-09-03 03:12:06 Test Item Value Reference Range Interpretation Comments POCT GLU (test code = 6878359128) 132 mg/dL 70-110 H Lab Interpretation (test code = Abnormal 86838-5) [facility] GLUCOSE (AUTOMATED)2022-09-02 22:34:25 Test Item Value Reference Range Interpretation Comments POCT GLU (test code = 1795420771) 115 mg/dL 70-110 H Lab Interpretation (test code = Abnormal 10652-1) [facility] GLUCOSE (AUTOMATED)2022-09-02 22:34:25 Test Item Value Reference Range Interpretation Comments POCT GLU (test code = 6629027160) 115 mg/dL 70-110 H Lab Interpretation (test code = Abnormal 61361-5) [facility] GLUCOSE (AUTOMATED)2022-09-02 17:38:52 Test Item Value Reference Range Interpretation Comments POCT GLU (test code = 4016999151) 133 mg/dL 70-110 H Lab Interpretation (test code = Abnormal 64104-7) [facility] GLUCOSE (AUTOMATED)2022-09-02 17:38:52 Test Item Value Reference Range Interpretation Comments POCT GLU (test code = 6736336664) 133 mg/dL 70-110 H Lab Interpretation (test code = Abnormal 64344-5) [facility] GLUCOSE (AUTOMATED)2022-09-02 13:37:34 Test Item Value Reference Range Interpretation Comments POCT GLU (test code = 2332605132) 100 mg/dL 70-110 Lab Interpretation (test code = Normal 50265-7) [facility] GLUCOSE (AUTOMATED)2022-09-02 13:37:34 Test Item Value Reference Range Interpretation Comments POCT GLU (test code = 0303528741) 100 mg/dL 70-110 Lab Interpretation (test code = Normal 52091-7) [facility] GLUCOSE (AUTOMATED)2022-09-02 02:47:30 Test Item Value Reference Range Interpretation Comments POCT GLU (test code = 5623627287) 128 mg/dL 70-110 H Lab Interpretation (test code = Abnormal 29476-1) [facility] GLUCOSE (AUTOMATED)2022-09-02 02:47:30 Test Item Value Reference Range Interpretation Comments POCT GLU (test code = 2502346384) 128 mg/dL 70-110 H Lab Interpretation (test code = Abnormal 13952-3) [facility] GLUCOSE (AUTOMATED)2022-09-02 00:02:07 Test Item Value Reference Range Interpretation Comments POCT GLU (test code = 156 mg/dL 70-110 H Notifi ed Provider [id number]) Lab Interpretation (test Abnormal code = 41004-8) [facility] GLUCOSE (AUTOMATED)2022-09-02 00:02:07 Test Item Value Reference Range Interpretation Comments POCT GLU (test code = 156 mg/dL 70-110 H Notifi ed Provider [id number]) Lab Interpretation (test Abnormal code = 57566-6) [facility] GLUCOSE (AUTOMATED)2022-09-01 18:18:04 Test Item Value Reference Range Interpretation Comments POCT GLU (test code = 5448162141) 180 mg/dL 70-110 H Lab Interpretation (test code = Abnormal 64524-9) [facility] GLUCOSE (AUTOMATED)2022-09-01 18:18:04 Test Item Value Reference Range Interpretation Comments POCT GLU (test code = 1069085416) 180 mg/dL 70-110 H Lab Interpretation (test code = Abnormal 32687-3) [facility] GLUCOSE (AUTOMATED)2022-09-01 14:09:09 Test Item Value Reference Range Interpretation Comments POCT GLU (test code = 123 mg/dL 70-110 H Notifi ed Provider [id number]) Lab Interpretation (test Abnormal code = 80762-1) [facility] GLUCOSE (AUTOMATED)2022-09-01 14:09:09 Test Item Value Reference Range Interpretation Comments POCT GLU (test code = 123 mg/dL 70-110 H Notifi ed Provider [id number]) Lab Interpretation (test Abnormal code = 21996-4) [facility] GLUCOSE (AUTOMATED)2022-09-01 02:25:31 Test Item Value Reference Range Interpretation Comments POCT GLU (test code = 5530971270) 160 mg/dL 70-110 H Lab Interpretation (test code = Abnormal 80735-7) [facility] GLUCOSE (AUTOMATED)2022-09-01 02:25:31 Test Item Value Reference Range Interpretation Comments POCT GLU (test code = 6212963907) 160 mg/dL 70-110 H Lab Interpretation (test code = Abnormal 44500-8) [facility]2022-08-31 23:34:28 Test Item Value Reference Range Interpretation Comments HGB A1C (test code = 8.2 % 4.0-5.7 H 4548-4) MIKAYLA (test code = MIKAYLA) Reference RangesNormal: <5.7%Prediabetes: 5.7 - 6.4%Diabetes: > 6.5% Lab Interpretation (test Abnormal code = 50952-5) [facility] ([facility]1C)2022-08-31 23:34:28 Test Item Value Reference Range Interpretation Comments HGB A1C (test code = 8.2 % 4.0-5.7 H 4548-4) MIKAYLA (test code = MIKAYLA) Reference RangesNormal: <5.7%Prediabetes: 5.7 - 6.4%Diabetes: > 6.5% Lab Interpretation (test Abnormal code = 50981-7) [facility]an[facility] ([facility]E)2022-08-31 23:15:13 Test Item Value Reference Range Interpretation Comments Height (test code = in 5710937538) Weight (test code = lbs 3912537092) Systolic BP (test code = mmHg 0500974391) Diastolic BP (test code mmHg = 2298639657) Heart Rate (test code = bpm 8122721661) BSA (test code = 2.40 m2 6195544699) Ao root diam (test code 3.50 cm = 9251950162) Aortic root (test code = 3.5 cm 6880186150) Ao root annulus (test 3.5 cm code = 4212779360) LVOT diameter (test code 2.01 cm = 9482386763) LVOT area (test code = 3.20 cm2 1842526750) LVIDD (test code = 4.50 cm 2568184610) Left Ventricular End 92.1 mL Diastolic Volume by Teichholz Method (test code = 8533158) IVS (test code = 1.16 cm 6550664441) Interventricular Septum 1.16 cm Diastolic Thickness by 2D (test code = 6066024) LVPWD (test code = 1.15 cm 2908649142) PW (test code = 1.15 cm 0.6-1.2 8240957540) EF(Teich) (test code = 44.20 % 1392877566) LVIDS (test code = 3.50 cm 4745140283) Left Ventricular End 51.4 mL Systolic Volume by Teichholz Method (test code = 3742042) FS (test code = 22 % 8107461687) EF - 2D (test code = 44.20 % 92310844) LA size (test code = 4.2 cm 4856622623) TR Peak Artemio (test code = 347.9 cm/s 6015277542) Triscuspid Valve mmHg Regurgitation Peak Gradient (test code = 6755229937) LAV(MOD-sp4) (test code 55.40 mL = 1042826640) E wave decelartion time 0.20 s (test code = 1420196878) MV Peak E Artemio (test code 131.6 cm/s = 1786105672) MV stenosis pressure 1/2 59.8 ms time (test code = 9697168046) MV Peak A Artemio (test code 158.5 cm/s = 9576750296) E/A ratio (test code = ratio 8096799292) MR max PG (test code = 132.30 mm[Hg] 2003906899) MR max artemio (test code = 575.00 cm/s 5810226771) Mr max artemio (test code = 575.0 m/s 7486783922) MV Prop V (test code = 44.80 cm/s 7676560491) MV E/e' septal (test 9.1 cm/s code = 1711374701) LVOT stroke volume (test 61.50 cm3 code = 8446389420) LVOT peak artemio (test code 106.5 cm/s = 2173298380) LVOT mn grad (test code mmHg = 2563383109) AV LVOT peak gradient mmHg (test code = 4821951221) LVOT peak VTI (test code 19.3 cm = 7018406111) LV V1 mean (test code = 74.70 cm/s 9296724551) Aortic valve mean 217.3 cm/s velocity (test code = 0617217383) Ao peak artemio (test code = 286.3 cm/s 0120431534) Ao VTI (test code = 51.1 cm 5810445041) AV area by cont VTI 1.2 cm2 (test code = 5919794568) AV area peak artemio (test 1.2 cm2 code = 7140211756) Ao max PG (test code = 32.80 mm[Hg] 2656054401) AV peak gradient (test mmHg code = 2382268084) AV valve area (test code 1.20 cm2 = 1844704141) AV mean gradient (test mmHg code = 2520681175) AV regurgitation 386.1 ms pressure 1/2 time (test code = 2125666134) AI dec slope (test code 273.40 cm/s2 = 9725110605) AI max artemio (test code = 360.30 cm/s 5988575670) AI max PG (test code = 51.90 mm[Hg] 5115452828) Radiology Study observation (narrative) (test code = 63914-9) MIKAYLA (test code = MIKAYLA) ?Left?Ventricle: Left ventricle size is normal. Mildly increased wall thickness. Mild global hypokinesis present. Mildly reduced systolic function with a visually estimated EF of 40 - 45%. Unable to assess diastolic function due to mitral valve disease. ?Mitral?Valve: Mild transvalvular regurgitation. Moderate to severe stenosis. MVA by continuity equation 1.2 cm2. Mean gradient 6.9 mmHg at HR 78 bpm. ?Tricuspid?Valve: Right ventricular systolic pressure is 55-60 mmHg. ?RA pressure is 10-15 mmHg. ?Right?Ventricle: Right ventricle is mildly dilated. Moderately reduced systolic function. ?Aortic?Valve: Mild transvalvular regurgitation. Consistent with moderate aortic stenosis. Left VentricleLeft ventricle size is normal. Mildly increased wall thickness. Mild global hypokinesis present. Mildly reduced systolic function with a visually estimated EF of 40 - 45%. Unable to assess diastolic function due to mitral valve disease.Right VentricleRight ventricle is mildly dilated. Moderately reduced systolic function.Left AtriumLeft atrium size is normal.Right AtriumRight atrium size is normal.Mitral ValveMild mitral annular calcification. Mild transvalvular regurgitation. Moderate to severe stenosis. MVA by continuity equation 1.2 cm2. Mean gradient 6.9 mmHg at HR 78 bpm.Tricuspid ValveTricuspid valve structure is normal. Mild transvalvular regurgitation. Right ventricular systolic pressure is 55-60 mmHg. RA pressure is 10-15 mmHg.Aortic ValveTricuspid. Mildly thickened cusps. Mildly calcified cusps. Mild transvalvular regurgitation. Consistent with moderate aortic stenosis.Pulmonic ValveNot well visualized. Trace transvalvular regurgitation.Ascendi ng AortaNormal sized aorta.PericardiumTriv ial pericardial effusion present.Study DetailsStudy quality was adequate. A complete echocardiogram was performed using 2D, color flow Doppler and spectral Doppler. 5 mL of Lumason ultrasound enhancing agent used. [facility]:15:13 Test Item Value Reference Range Interpretation Comments Height (test code = in 5802299253) Weight (test code = lbs 5202366547) Systolic BP (test code = mmHg 9320259007) Diastolic BP (test code mmHg = 5565237384) Heart Rate (test code = bpm 6955825279) BSA (test code = 2.40 m2 6546554718) Ao root diam (test code 3.50 cm = 5794004640) Aortic root (test code = 3.5 cm 9278920424) Ao root annulus (test 3.5 cm code = 2765415806) LVOT diameter (test code 2.01 cm = 1768162801) LVOT area (test code = 3.20 cm2 6310977802) LVIDD (test code = 4.50 cm 2175790823) Left Ventricular End 92.1 mL Diastolic Volume by Teichholz Method (test code = 7190184) IVS (test code = 1.16 cm 7148914601) Interventricular Septum 1.16 cm Diastolic Thickness by 2D (test code = 8548328) LVPWD (test code = 1.15 cm 9359746730) PW (test code = 1.15 cm 0.6-1.8 8380564022) EF(Teich) (test code = 44.20 % 3226215610) LVIDS (test code = 3.50 cm 4220180648) Left Ventricular End 51.4 mL Systolic Volume by Teichholz Method (test code = 3899689) FS (test code = 22 % 4118405082) EF - 2D (test code = 44.20 % 42129983) LA size (test code = 4.2 cm 5037480662) TR Peak Artemio (test code = 347.9 cm/s 3049975473) Triscuspid Valve mmHg Regurgitation Peak Gradient (test code = 5931174507) LAV(MOD-sp4) (test code 55.40 mL = 8912288561) E wave decelartion time 0.20 s (test code = 1482878859) MV Peak E Artemio (test code 131.6 cm/s = 5802713995) MV stenosis pressure 1/2 59.8 ms time (test code = 3859136041) MV Peak A Artemio (test code 158.5 cm/s = 4901389221) E/A ratio (test code = ratio 2041302853) MR max PG (test code = 132.30 mm[Hg] 2516086264) MR max artemio (test code = 575.00 cm/s 5818416801) Mr max artemio (test code = 575.0 m/s 5390494953) MV Prop V (test code = 44.80 cm/s 4724572921) MV E/e' septal (test 9.1 cm/s code = 5963207309) LVOT stroke volume (test 61.50 cm3 code = 5321569893) LVOT peak artemio (test code 106.5 cm/s = 5757367787) LVOT mn grad (test code mmHg = 3572471864) AV LVOT peak gradient mmHg (test code = 2148919096) LVOT peak VTI (test code 19.3 cm = 5280993276) LV V1 mean (test code = 74.70 cm/s 5856576224) Aortic valve mean 217.3 cm/s velocity (test code = 2090422408) Ao peak artemio (test code = 286.3 cm/s 4557175898) Ao VTI (test code = 51.1 cm 0413101288) AV area by cont VTI 1.2 cm2 (test code = 9729678852) AV area peak artemio (test 1.2 cm2 code = 2996594791) Ao max PG (test code = 32.80 mm[Hg] 5014313413) AV peak gradient (test mmHg code = 6208758280) AV valve area (test code 1.20 cm2 = 5969787198) AV mean gradient (test mmHg code = 6791939462) AV regurgitation 386.1 ms pressure 1/2 time (test code = 3207081943) AI dec slope (test code 273.40 cm/s2 = 3163352615) AI max artemio (test code = 360.30 cm/s 5554403427) AI max PG (test code = 51.90 mm[Hg] 8472946646) Radiology Study observation (narrative) (test code = 84073-7) MIKAYLA (test code = MIKAYLA) ?Left?Ventricle: Left ventricle size is normal. Mildly increased wall thickness. Mild global hypokinesis present. Mildly reduced systolic function with a visually estimated EF of 40 - 45%. Unable to assess diastolic function due to mitral valve disease. ?Mitral?Valve: Mild transvalvular regurgitation. Moderate to severe stenosis. MVA by continuity equation 1.2 cm2. Mean gradient 6.9 mmHg at HR 78 bpm. ?Tricuspid?Valve: Right ventricular systolic pressure is 55-60 mmHg. ?RA pressure is 10-15 mmHg. ?Right?Ventricle: Right ventricle is mildly dilated. Moderately reduced systolic function. ?Aortic?Valve: Mild transvalvular regurgitation. Consistent with moderate aortic stenosis. Left VentricleLeft ventricle size is normal. Mildly increased wall thickness. Mild global hypokinesis present. Mildly reduced systolic function with a visually estimated EF of 40 - 45%. Unable to assess diastolic function due to mitral valve disease.Right VentricleRight ventricle is mildly dilated. Moderately reduced systolic function.Left AtriumLeft atrium size is normal.Right AtriumRight atrium size is normal.Mitral ValveMild mitral annular calcification. Mild transvalvular regurgitation. Moderate to severe stenosis. MVA by continuity equation 1.2 cm2. Mean gradient 6.9 mmHg at HR 78 bpm.Tricuspid ValveTricuspid valve structure is normal. Mild transvalvular regurgitation. Right ventricular systolic pressure is 55-60 mmHg. RA pressure is 10-15 mmHg.Aortic ValveTricuspid. Mildly thickened cusps. Mildly calcified cusps. Mild transvalvular regurgitation. Consistent with moderate aortic stenosis.Pulmonic ValveNot well visualized. Trace transvalvular regurgitation.Ascendi ng AortaNormal sized aorta.PericardiumTriv ial pericardial effusion present.Study DetailsStudy quality was adequate. A complete echocardiogram was performed using 2D, color flow Doppler and spectral Doppler. 5 mL of Lumason ultrasound enhancing agent used. [facility] GLUCOSE (AUTOMATED)2022-08-31 22:49:47 Test Item Value Reference Range Interpretation Comments POCT GLU (test code = 1236693020) 137 mg/dL 70-110 H Lab Interpretation (test code = Abnormal 43594-6) [facility] GLUCOSE (AUTOMATED)2022-08-31 22:49:47 Test Item Value Reference Range Interpretation Comments POCT GLU (test code = 2106442432) 137 mg/dL 70-110 H Lab Interpretation (test code = Abnormal 97765-8) [facility] GLUCOSE (AUTOMATED)2022-08-31 22:03:54 Test Item Value Reference Range Interpretation Comments POCT GLU (test code = 1309933227) 178 mg/dL 70-110 H Lab Interpretation (test code = Abnormal 29022-1) [facility] GLUCOSE (AUTOMATED)2022-08-31 22:03:54 Test Item Value Reference Range Interpretation Comments POCT GLU (test code = 7877173382) 178 mg/dL 70-110 H Lab Interpretation (test code = Abnormal 56591-6) [facility] GLUCOSE (AUTOMATED)2022-08-31 16:50:25 Test Item Value Reference Range Interpretation Comments POCT GLU (test code = 5833618024) 58 mg/dL 70-110 L Lab Interpretation (test code = Abnormal 66392-5) [facility] GLUCOSE (AUTOMATED)2022-08-31 16:50:25 Test Item Value Reference Range Interpretation Comments POCT GLU (test code = 4489346314) 96 mg/dL 70-110 Lab Interpretation (test code = Normal 09257-9) [facility] GLUCOSE (AUTOMATED)2022-08-31 16:50:25 Test Item Value Reference Range Interpretation Comments POCT GLU (test code = 9660984156) 58 mg/dL 70-110 L Lab Interpretation (test code = Abnormal 60500-3) [facility] GLUCOSE (AUTOMATED)2022-08-31 16:50:25 Test Item Value Reference Range Interpretation Comments POCT GLU (test code = 7912515686) 96 mg/dL 70-110 Lab Interpretation (test code = Normal 89313-2) [facility] GLUCOSE (AUTOMATED)2022-08-31 16:08:42 Test Item Value Reference Range Interpretation Comments POCT GLU (test code = 3924162582) 65 mg/dL 70-110 L Lab Interpretation (test code = Abnormal 85832-2) [facility] GLUCOSE (AUTOMATED)2022-08-31 16:08:42 Test Item Value Reference Range Interpretation Comments POCT GLU (test code = 2974695264) 65 mg/dL 70-110 L Lab Interpretation (test code = Abnormal 63164-9) [facility] GLUCOSE (AUTOMATED)2022-08-31 15:42:34 Test Item Value Reference Range Interpretation Comments POCT GLU (test code = 8124955532) 46 mg/dL 70-110 LL Lab Interpretation (test code = Abnormal 13725-4) [facility] GLUCOSE (AUTOMATED)2022-08-31 15:42:34 Test Item Value Reference Range Interpretation Comments POCT GLU (test code = 4326909594) 46 mg/dL 70-110 LL Lab Interpretation (test code = Abnormal 79293-3) [facility] / [id number] 13:56:19 Test Item Value Reference Range Interpretation Comments PROTIME PATIENT (test See_Comment H [Auto mated message] code = 5964-2) The system [facility] generated this result transmitted ref erence range: 12.0 - 1 4.7 Seconds. The reference range was not used to int erpret this result as normal/abnormal . INR (test code = 6301-6) Nor mal INR <1.1; Warfarin Therap eutic range 2.0 to 3. 0 or 2.5 to 3.5, dep ending upon the indica tions. Lab Interpretation (test Abnormal code = 00250-9) [facility] / [id number] 13:56:19 Test Item Value Reference Range Interpretation Comments PROTIME PATIENT (test See_Comment H [Auto mated message] code = 5964-2) The system [employer] generated this result transmitted ref erence range: 12.0 - 1 4.7 Seconds. The reference range was not used to int erpret this result as normal/abnormal . INR (test code = 6301-6) Nor mal INR <1.1; Warfarin Therap eutic range 2.0 to 3. 0 or 2.5 to 3.5, dep ending upon the indica tions. Lab Interpretation (test Abnormal code = 73409-2) [facility] [id number] 13:24:55 Test Item Value Reference Interpretation Comments Range TROPONIN I (test 0.034 ng/mL See_Comment [Automated code = 0862416604) message] The system which generated this result transmitted reference range : <=0.034. The reference range was not used to interpret this result as normal/abnormal . MIKAYLA (test code = Reference (Normal) MIKAYLA) Range (defined by the 99th percentile reference limit): <= 0.034 ng/mL Note: Cardiac troponin begins to rise 3-4 hours after the onset of ischemia. Repeat in 4-6 hours if the sample was drawn within 3-4 hours of the onset of the symptom and found normal. Diagnosis of myocardial injury is made with acute changes in cTn concentrations with at least one serial sample above the 99th percentile upper reference limit (URL), taken together with the patient's clinical presentation. Biotin has been reported to cause a negative bias, interpret results relative to patient's use of biotin. Lab Interpretation Normal (test code = 45897-5) [facility] [id number] 13:24:55 Test Item Value Reference Interpretation Comments Range TROPONIN I (test 0.034 ng/mL See_Comment [Automated code = 7969156999) message] The system which generated this result transmitted reference range : <=0.034. The reference range was not used to interpret this result as normal/abnormal . MIKAYLA (test code = Reference (Normal) MIKAYLA) Range (defined by the 99th percentile reference limit): <= 0.034 ng/mL Note: Cardiac troponin begins to rise 3-4 hours after the onset of ischemia. Repeat in 4-6 hours if the sample was drawn within 3-4 hours of the onset of the symptom and found normal. Diagnosis of myocardial injury is made with acute changes in cTn concentrations with at least one serial sample above the 99th percentile upper reference limit (URL), taken together with the patient's clinical presentation. Biotin has been reported to cause a negative bias, interpret results relative to patient's use of biotin. Lab Interpretation Normal (test code = 44036-0) [facility] [id number] 13:21:34 Test Item Value Reference Range Interpretation Comments NT-proBNP (test code 84186 pg/mL See_Comment H [Autom ated = 8294237953) message] The system which generated this result transmitted reference range : <=125. The reference range was not used to interpret this result as normal/abnormal . MIKAYLA (test code = MIKAYLA) Biotin has been reported to cause a negative bias, interpret results relative to patient's use of biotin. Lab Interpretation Abnormal (test code = 68277-1) [facility] [id number] 13:21:34 Test Item Value Reference Range Interpretation Comments NT-proBNP (test code 52376 pg/mL See_Comment H [Autom ated = 4079759237) message] The system which generated this result transmitted reference range : <=125. The reference range was not used to interpret this result as normal/abnormal . MIKAYLA (test code = MIKAYLA) Biotin has been reported to cause a negative bias, interpret results relative to patient's use of biotin. Lab Interpretation Abnormal (test code = 97474-5) [facility]. METABOLIC PANEL (07772)2022-08-31 13:12:56 Test Item Value Reference Range Interpretation Comments NA (test code = 137 mmol/L 135-145 5644896180) K (test code = 3.6 mmol/L 3.5-5.0 7937610508) CL (test code = 103 mmol/L 98-108 9901688462) CO2 TOTAL (test code = 22 mmol/L 23-31 L 1310306038) AGAP (test code = 2-16 6927621315) BUN (test code = 22 mg/dL 7-23 9794898534) GLUCOSE (test code = 69 mg/dL 70-110 L 6415500828) CREATININE (test code = 1.95 mg/dL 0.60-1.25 H 3560673918) TOTAL BILI (test code = 2.2 mg/dL 0.1-1.1 H 3817283625) CALCIUM (test code = 8.3 mg/dL 8.6-10.6 L 1319403733) T PROTEIN (test code = 6.4 g/dL 6.3-8.2 8316908896) ALBUMIN (test code = 3.2 g/dL 3.5-5.0 L 8377040568) ALK PHOS (test code = 131 U/L 34-122 H 5355167471) ALTv (test code = 16 U/L 5-50 1742-6) AST(SGOT) (test code = 34 U/L 13-40 4619692526) eGFR (test code = mL/min/1.73m2 7325271730) MIKAYLA (test code = MIKAYLA) Association of Glomerular Filtration Rate (GFR) and Staging of Kidney Disease* + --+ --+ ------+| GFR (mL/min/1.73 m2) ?| With Kidney Damage ?| ?Without Kidney Damage+ --------+ --------+ +| ?>90 ?| ?Stage one ?| ? Normal ?+ ---+ ---+ -------+| ?60-89 ?| ?Stage two ?| ? Decreased GFR ? + --+ --+ ------+| ?30-59 ?| ?Stage three ?| ? Stage three ? + --+ --+ ------+| ?15-29 ?| ?Stage four ? | ? Stage four ?+ ---+ ---+ -------+| ?<15 (or dialysis) ? ?| ?Stage five ? | ? Stage five ?+ ---+ ---+ -------+ *Each stage assumes the associated GFR level has been in effect for at least three months. ?Stages 1 to 5, with or without kidney disease, indicate chronic kidney disease. Notes: Determination of stages one and two (with eGFR >59mL/min/1.73 m2) requires estimation of kidney damage for at least three months as defined by structural or functional abnormalities of the kidney, manifested by either:Pathological abnormalities or Markers of kidney damage (including abnormalities in the composition of the blood or urine or abnormalities in imaging tests). Lab Interpretation Abnormal (test code = 94130-0) [facility]. METABOLIC PANEL ([id number])2022-08-31 13:12:56 Test Item Value Reference Range Interpretation Comments NA (test code = 137 mmol/L 135-145 6638677475) K (test code = 3.6 mmol/L 3.5-5.0 8467516588) CL (test code = 103 mmol/L 98-108 7370201542) CO2 TOTAL (test code = 22 mmol/L 23-31 L 9474802443) AGAP (test code = 2-16 4767728907) BUN (test code = 22 mg/dL 7-23 5124349120) GLUCOSE (test code = 69 mg/dL 70-110 L 4997380081) CREATININE (test code = 1.95 mg/dL 0.60-1.25 H 7908729272) TOTAL BILI (test code = 2.2 mg/dL 0.1-1.1 H 3698029473) CALCIUM (test code = 8.3 mg/dL 8.6-10.6 L 1356781374) T PROTEIN (test code = 6.4 g/dL 6.3-8.2 7019156607) ALBUMIN (test code = 3.2 g/dL 3.5-5.0 L 3257379658) ALK PHOS (test code = 131 U/L 34-122 H 3936903227) ALTv (test code = 16 U/L 5-50 1742-6) AST(SGOT) (test code = 34 U/L 13-40 1559102974) eGFR (test code = mL/min/1.73m2 9313527304) MIKAYLA (test code = MIKAYLA) Association of Glomerular Filtration Rate (GFR) and Staging of Kidney Disease* + --+ --+ ------+| GFR (mL/min/1.73 m2) ?| With Kidney Damage ?| ?Without Kidney Damage+ --------+ --------+ +| ?>90 ?| ?Stage one ?| ? Normal ?+ ---+ ---+ -------+| ?60-89 ?| ?Stage two ?| ? Decreased GFR ? + --+ --+ ------+| ?30-59 ?| ?Stage three ?| ? Stage three ? + --+ --+ ------+| ?15-29 ?| ?Stage four ? | ? Stage four ?+ ---+ ---+ -------+| ?<15 (or dialysis) ? ?| ?Stage five ? | ? Stage five ?+ ---+ ---+ -------+ *Each stage assumes the associated GFR level has been in effect for at least three months. ?Stages 1 to 5, with or without kidney disease, indicate chronic kidney disease. Notes: Determination of stages one and two (with eGFR >59mL/min/1.73 m2) requires estimation of kidney damage for at least three months as defined by structural or functional abnormalities of the kidney, manifested by either:Pathological abnormalities or Markers of kidney damage (including abnormalities in the composition of the blood or urine or abnormalities in imaging tests). Lab Interpretation Abnormal (test code = 81661-4) [facility] [id number] 13:07:54 Test Item Value Reference Range Interpretation Comments WBC (test code = See_Comment [Automated 0879-2) message] The sy stem which generated this result transmitted reference range : 4.20 - 10.70 10*3/?L. The reference range was not used to interpret this result as normal/abnormal . RBC (test code = See_Comment [Automated 454-4) message] The sy stem which generated this result transmitted reference range : 4.26 - 5.52 10*6/?L. The reference range was not used to interpret this result as normal/abnormal . HGB (test code = 13.3 g/dL 12.2-16.4 138-7) HCT (test code = 42.3 % 38.4-49.3 4544-3) MCV (test code = 77.8 fL 81.7-95.6 L 787-2) MCH (test code = 24.4 pg 26.1-32.7 L 785-6) MCHC (test code = 31.4 g/dL 31.2-35.0 786-4) RDW-SD (test code = 49.6 fL 38.5-51.6 32840-8) RDW-CV (test code = 18.2 % 12.1-15.4 H 788-0) PLT (test code = See_Comment [Automated 777-3) message] The sy stem which generated this result transmitted reference range : 150 - 328 10*3/ ?L. The reference r kyra was not used to interpret this result as normal/abnormal . MPV (test code = 11.5 fL 9.8-13.0 31332-2) IPF % (test code = 4.4 % 1.2-10.7 Platelet count 6233078872) measured by fluorescence method. NRBC/100 WBC (test See_Comment [Automat ed code = 1674139852) message] The system which generated this result transmitted reference range : 0.0 - 10.0 /100 WBCs. The refer ence range was not u sed to interpret th is result as normal/abnormal . NRBC x10^3 (test code See_Comment [Auto mated = 1985646376) message] The s ystem which generated this result transmitted reference range : 10*3/?L. The reference range was not used to interpret this result as normal/abnormal . GRAN MAT (NEUT) % 72.1 % (test code = 770-8) IMM GRAN % (test code 0.50 % = 7500679825) LYMPH % (test code = 17.1 % 736-9) MONO % (test code = 7.8 % 5905-5) EOS % (test code = 1.7 % 713-8) BASO % (test code = 0.8 % 706-2) GRAN MAT x10^3(ANC) 5.64 10*3/uL 1.99-6.95 (test code = 0111452760) IMM GRAN x10^3 (test 0.04 10*3/uL 0.00-0.06 code = 5052699457) LYMPH x10^3 (test code 1.34 10*3/uL 1.09-3.23 = 731-0) MONO x10^3 (test code 0.61 10*3/uL 0.36-1.02 = 742-7) EOS x10^3 (test code = 0.13 10*3/uL 0.06-0.53 711-2) BASO x10^3 (test code 0.06 10*3/uL 0.01-0.09 = 704-7) Lab Interpretation Abnormal (test code = 95363-8) [facility] WITH [id number] 13:07:54 Test Item Value Reference Range Interpretation Comments WBC (test code = See_Comment [Automated 0490-2) message] The sy stem which generated this result transmitted reference range : 4.20 - 10.70 10*3/?L. The reference range was not used to interpret this result as normal/abnormal . RBC (test code = See_Comment [Automated 019-8) message] The sy stem which generated this result transmitted reference range : 4.26 - 5.52 10*6/?L. The reference range was not used to interpret this result as normal/abnormal . HGB (test code = 13.3 g/dL 12.2-16.4 718-7) HCT (test code = 42.3 % 38.4-49.3 4544-3) MCV (test code = 77.8 fL 81.7-95.6 L 787-2) MCH (test code = 24.4 pg 26.1-32.7 L 785-6) MCHC (test code = 31.4 g/dL 31.2-35.0 786-4) RDW-SD (test code = 49.6 fL 38.5-51.6 81630-5) RDW-CV (test code = 18.2 % 12.1-15.4 H 788-0) PLT (test code = See_Comment [Automated 067-3) message] The sy stem which generated this result transmitted reference range : 150 - 328 10*3/ ?L. The reference r kyra was not used to interpret this result as normal/abnormal . MPV (test code = 11.5 fL 9.8-13.0 99896-9) IPF % (test code = 4.4 % 1.2-10.7 Platelet count [id number]) measured by fluorescence method. NRBC/100 WBC (test See_Comment [Automat ed code = 2954438796) message] The system which generated this result transmitted reference range : 0.0 - 10.0 /100 WBCs. The refer ence range was not u sed to interpret th is result as normal/abnormal . NRBC x10^3 (test code See_Comment [Auto mated = 4250112802) message] The s ystem which generated this result transmitted reference range : 10*3/?L. The reference range was not used to interpret this result as normal/abnormal . GRAN MAT (NEUT) % 72.1 % (test code = 770-8) IMM GRAN % (test code 0.50 % = 4877283276) LYMPH % (test code = 17.1 % 736-9) MONO % (test code = 7.8 % 5905-5) EOS % (test code = 1.7 % 713-8) BASO % (test code = 0.8 % 706-2) GRAN MAT x10^3(ANC) 5.64 10*3/uL 1.99-6.95 (test code = 7960330521) IMM GRAN x10^3 (test 0.04 10*3/uL 0.00-0.06 code = 0738251323) LYMPH x10^3 (test code 1.34 10*3/uL 1.09-3.23 = 731-0) MONO x10^3 (test code 0.61 10*3/uL 0.36-1.02 = 742-7) EOS x10^3 (test code = 0.13 10*3/uL 0.06-0.53 711-2) BASO x10^3 (test code 0.06 10*3/uL 0.01-0.09 = 704-7) Lab Interpretation Abnormal (test code = 68916-7) [id number] 04:00:46 Test Item Value Reference Range Interpretation Comments CHOLESTEROL (test 131 MG/DL <200 code = 2210) TRIGLYCERIDES (test 58 MG/DL <150 code = 2232) HDL CHOLESTEROL (test 38 MG/DL >39 L code = 2220) CALC LDL CHOL (test 80 MG/DL <100 NOTE: C ALCULATED LDL code = 2237) IS BASED ON FLORINA-WILLS METHOD WHICHINCLUDES ADJUSTABLE TRIGLYCERIDE:VL DL CHOLESTEROL RAT IO.THIS FACTOR VARIES B Y MEASURED TRIGLY CERIDE AND NON-HDLCHOL ESTEROL CONCENTRATIONS WITH INCREASED CALCU LATED LDL SEENIN HIGH ER TRIGLYCERIDE OR LOWER NON-HDL SPECIME NS. FOR MOREINFORMATION , SEE CLIENT ANNOUNCE MENT AT [email or web address] RATIO LDL/HDL 2.11 RATIO <3.55 (test code = 2238) COMPREHENSIVE METABOLIC [id number] 04:00:46 Test Item Value Reference Range Interpretation Comments GLUCOSE (test code = 99 MG/DL 70-99 2216) BUN (test code = 25 MG/DL 6-20 H 2207) CREATININE (test 2.02 MG/DL 0.80-1.40 H code = 2214) eGFR (2020 CKD-EPI) 37 ML/MIN/1.73 >60 L (test code = 60663) CALC BUN/CREAT (test 12 RATIO 6-28 code = 2235) SODIUM (test code = 142 MEQ/L 182-982 3763) POTASSIUM (test code 4.7 MEQ/L 3.5-5.4 = 2227) CHLORIDE (test code 106 MEQ/L 95-107 = 2215) CARBON DIOXIDE (test 20 MEQ/L 19-31 code = 2206) CALCIUM (test code = 10.0 MG/DL 8.5-10.5 2208) PROTEIN, TOTAL (test 7.7 G/DL 6.1-8.3 code = 2229) ALBUMIN (test code = 4.3 G/DL 3.5-5.2 2200) CALC GLOBULIN (test 3.4 G/DL 1.9-3.7 code = 2240) CALC A/G RATIO (test 1.3 RATIO 1.0-2.6 code = 2234) BILIRUBIN, TOTAL 0.7 MG/DL See_Comment [Automated message] (test code = 2207) The syste m which generated this result transmit che reference range : <=1.2. The refe rence range was not u sed to interpret th is result as normal/abnormal . ALKALINE PHOSPHATASE 72 U/L 40-123 (test code = 2204) AST (test code = 18 U/L 2217) ALT (test code = 12 U/L 50 2218) ALBUMIN/CREATININE RATIO, URINE, [id number] 03:52:17 Test Item Value Reference Range Interpretation Comments CREATININE, URINE, 37.7 MG/DL NOT ESTAB RANDOM (test code = 2072) ALBUMIN, URINE, 111.3 MG/DL NOT ESTAB RANDOM (test code = 43227) CALC 2952 MG/G <30 H Note: ALBUMIN/CREAT, RND Albumin/C reatinine ratio (test code = reference inter lizeth 75152) reflects ADA an d NKF guidelines. UNL ESS OTHERWISE INDIC ATED, ALL TESTING PERFORM ED [facility], [address] [place] [address] LABORATORY DIRE CTOR: ZACHARY POWELL M.D. CLIA NUMBER [id number] [place] [id number] HEMOGLOBIN [id number] 03:39:55 Test Item Value Reference Range Interpretation Comments HEMOGLOBIN A1c (test code = 13651) 6.3 % 4.2-5.6 H LIPID [id number] 03:44:45 Test Item Value Reference Range Interpretation Comments CHOLESTEROL (test 174 MG/DL <200 code = 2210) TRIGLYCERIDES (test 61 MG/DL <150 code = 2232) HDL CHOLESTEROL (test 64 MG/DL >39 code = 2220) CALC LDL CHOL (test 95 MG/DL <100 NOTE: C ALCULATED LDL code = 2237) IS BASED ON FLORINA-WILLS METHOD WHICHINCLUDES ADJUSTABLE TRIGLYCERIDE:VL DL CHOLESTEROL RAT IO.THIS FACTOR VARIES B Y MEASURED TRIGLY CERIDE AND NON-HDLCHOL ESTEROL CONCENTRATIONS WITH INCREASED CALCU LATED LDL SEENIN HIGH ER TRIGLYCERIDE OR LOWER NON-HDL SPECIME NS. FOR MOREINFORMATION , SEE CLIENT ANNOUNCE MENT AT [email or web address] [email or web address] RATIO LDL/HDL 1.48 RATIO <3.55 (test code = 2238) COMPREHENSIVE METABOLIC [id number] 03:44:45 Test Item Value Reference Range Interpretation Comments GLUCOSE (test code = 110 MG/DL 70-99 H 2217) BUN (test code = 18 MG/DL 6-20 2207) CREATININE (test 1.41 MG/DL 0.80-1.40 H EFFECTIVE code = 2214) 08/14/2021, [facility] HAS IMPLEMENTED THE NKF-ASN RECOMME NDED KD-EPI EGF R REFIT CALCULATI ON THAT DOES NOT I NCLUDE A COEFFICIENT FORRACE. FOR MO RE INFORMATION, SE E ANNOUNCEMENT [email or web address] eGFR (2020 CKD-EPI) 57 >60 L (test code = 35725) ML/MIN/1.73 CALC BUN/CREAT (test 13 RATIO 6-28 code = 2235) SODIUM (test code = 147 MEQ/L 133-146 H 2230) POTASSIUM (test code 3.8 MEQ/L 3.5-5.4 = 2227) CHLORIDE (test code 111 MEQ/L 95-107 H = 2214) CARBON DIOXIDE (test 24 MEQ/L 19-31 code = 220) CALCIUM (test code = 9.4 MG/DL 8.5-10.5 2208) PROTEIN, TOTAL (test 7.4 G/DL 6.1-8.3 code = 222) ALBUMIN (test code = 3.9 G/DL 3.5-5.2 2200) CALC GLOBULIN (test 3.5 G/DL 1.9-3.7 code = 2240) CALC A/G RATIO (test 1.1 RATIO 1.0-2.6 code = 2234) BILIRUBIN, TOTAL 0.3 MG/DL See_Comment [Automated message] (test code = 2207) The syste m which generated this result transmitted ref erence range: <=1.2. T he reference range was not used to int erpret this result as normal/abnormal . ALKALINE PHOSPHATASE 81 U/L 40-123 (test code = 2204) AST (test code = 22 U/L 9-50 2217) ALT (test code = 16 U/L 5-50 UNLESS OTH ERWISE 2218) INDICATED, ALL TESTING PERFORM ED [facility], [address] [place] [address] [facility] DIRECTOR: ZACHARY ELLER M.D. CLIA NUMBER [id number] CAP ACCREDITATION N O. [id number] Notes Date/Time Note Provider Source 2023-04-21 [facility] 20:56:29-00:00 Called by Ms Jose Francisco Felton. He has significant constipation and has not been able to have a bowel movement since discharge on 04/18/23. Recommended Miralax and Dulcolax suppository with opti ons for Fleet enema and Docu sate. Informed Ms Felton that she should take him to the ER if he is having severe pain or pain that worsens with the medications. Marcial Munson MD Electronically signed by Marcial Munson MD a t 04/21/2023 9:06 PM CDT 2023-04-19 Formatting of this note might be differe nt from the original. Karen Diehl RN [facility] 14:01:55-00:00 [facility] accepted patient and will contact patient to schedule. Karen Diehl RN, BSN Date [facility] TEAM [phone] 2023-04-19 Formatting of this note is different fro m the original. Karen Diehl RN [facility] 13:12:05-00:00 TRANSITIONAL CARE MANAGEMENT ASSESSMENT 04/19/2023 Rula Felton [id number] Rula Felton is a 63 year old Black or male was admitted on 02/13/[address] He was discharged on 04/18/23 with discharge disposition of HR- Routine Discharge. Admitting Physician: Luciano Long Discharge Diagnosis: 1. Mixe d mitral stenosis and regurgitation. 2. Mixed aortic valve stenosis and regurgitation. 3. Coronary artery disease. Linked Episodes Type: Episode: Status: Noted: Resolved: Last upd ate: Updated by: TRANSITION OF CARE TCM Active 04/18/2023 04/19/2023 1:05 PM Karen Diehl, RN Comments:04/18/2023 TCM Gyf-jjoc-li-face outreach documentation: Discharge Assessment Chart Assessed: 04/19/23 TCM Outreach Completed: 04/19/23 Do you have a few minutes to speak with me about how you are doing at home?: Yes (Patient stated he is doing alright) Discharge Instructions Do you understand your at-home instructions?: Ye s Medications Have you filled your prescri ptions and do you have them in your home? 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 Follow Up Appointment Has a follow up appointment been scheduled?: Yes Do you have any questions about your follow up a ppointments?: No Are you able to get to your appointment? 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 Will call CM back. Survey - Recognition Is there anything you would like to share about your recent hospitalization, or anyone you would like to recognize?: No Do you have any suggestions for improvement?: No Do you have any other questions or concerns at t his time?: No Future Appointments: Future Appointments Provider Department Dept Phone 04/23/2023 1:30 PM Savannah Grande NP [facility] [phone] 05/02/2023 1:15 PM [facility], Cardi[facility] [phone] 07/08/2023 11:00 AM Ilana Lincoln MD [facility] [phone] 2023-04-01 Formatting of this note is different fro m the original. Allyn Smith LVN [facility] 16:18:25-00:00 CHP referral submitted to Tatiana Cortés CM.
[2023-04-22 11:18] LABS: Absolute Lymphocytes (CBC) 1.2 K/uL (0.7-4.9); Hematocrit 32.6 % (39.6-49.0); Lymphocytes % 16.1 % (15.3-44.8); MCV 84.6 fL (80-100); MPV 9.5 fL (7.6-11.3); Platelets 170 thou/uL (152-406); RBC Red Blood Cell Count 3.86 M/uL (4.33-5.43)
[2023-04-22 11:36] LABS: Albumin 3.5 g/dL (3.4-5.0); Bilirubin Total 0.6 mg/dL (0.2-1.0); Protein, Total 8.5 g/dL (6.4-8.2)
[2023-04-22 11:42] LABS: Potassium 3.7 mEq/L (3.5-5.1)
--- NOTE | 2023-04-22 12:05 | ER ---
Nurse's Notes [facility] Name: David Felton Age: 63 yrs Sex: Male : 1960 Arrival Date: 04/22/2023 Time: 10:16 Bed 5 Private MD: Diagnosis: Adverse effect of insulin and oral hypoglycemic [antidiabetic] drugs-Glipizide/Insulin;Altered mental status, unspecified Presentation: 04/22 10:29 Chief complaint: EMS states: toned out for "not feeling well since this morning." EMS ld1 reports BGL 45 - gave oral glucose, blood sugar increased to 48. Pt denies pain. Coronavirus screen: At this time, the client does not indicate any symptoms associated with coronavirus-19. Ebola Screen: No symptoms or risks identified at this time. Initial Sepsis Screen: Does the patient meet any 2 criteria? No. Patient's initial sepsis screen is negative. Does the patient have a suspected source of infection? No. Patient's initial sepsis screen is negative. Risk Assessment: Do you want to hurt yourself or someone else? Patient reports no desire to harm self or others. Onset of symptoms was April 22, 2023. 10:29 Method Of Arrival: EMS: [facility] ld1 10:29 Acuity: JERO 2 ld1 Triage Assessment: 10:31 General: Appears in no apparent distress. comfortable, Behavior is calm, cooperative, ld1 appropriate for age. Pain: Denies pain. EENT: No signs and/or symptoms were reported regarding the EENT system. Neuro: Level of Consciousness is awake, alert, obeys commands, Oriented to person, place, time, situation. Cardiovascular: Capillary refill < 3 seconds Patient's skin is warm and dry. Rhythm is sinus rhythm. Respiratory: Airway is patent Respiratory effort is even, unlabored. GI: Abdomen is round non-distended. : No signs and/or symptoms were reported regarding the genitourinary system. Derm: No signs and/or symptoms reported regarding the dermatologic system. Musculoskeletal: No signs and/or symptoms reported regarding the musculoskeletal system. Historical: - Allergies: 10:31 No Known Allergies; ld1 - PMHx: 10:31 Hypertensive disorder; ld1 - PSHx: 10:31 diverticulitis SX; ld1 - Immunization history:: Adult Immunizations up to date. - Social history:: Smoking status: Patient denies any tobacco usage or history of. Patient/guardian denies using alcohol. Screenin:32 [facility] ED Fall Risk Assessment (Adult) History of falling in the last 3 months, ld1 including since admission No falls in past 3 months (0 pts). Abuse screen: Denies threats or abuse. Denies injuries from another. Nutritional screening: No deficits noted. Tuberculosis screening: No symptoms or risk factors identified. Assessment: 10:32 Reassessment: See triage assessment. ld1 10:46 Reassessment: Notified ERP of BGL of 40. See MAR for orders. Provided pt with orange ld1 juice and peanut butter. 10:46 Reassessment: RN at bedside attempting to get ultrasound IV access. ld1 Vital Signs: 10:29 BP 136 / 62; Pulse 83; Resp 18; Temp 97.5(O); Pulse Ox 100% on R/A; Weight 85.28 kg; ld1 Pain 0/10; 11:37 BP 153 / 63; Pulse 76; Resp 18; Pulse Ox 100% on R/A; ld1 10:29 Pain Scale: Adult ld1 ED Course: 10:18 Patient arrived in ED. bd 10:19 Jesus Begum MD is Attending Physician. js 10:31 Triage completed. ld1 10:31 Arm band placed on right wrist. ld1 10:32 Patient has correct armband on for positive identification. Placed in gown. Bed in low ld1 position. Call light in reach. Side rails up X2. classroom monitor on. Pulse ox on. NIBP on. Door closed. Noise minimized. Warm blanket given. 10:32 No provider procedures requiring assistance completed. ld1 10:33 Aleksey Majano, RN is Primary Nurse. bp 11:07 Inserted saline lock: 20 gauge in right antecubital area, using aseptic technique. bp Blood collected. 12:03 Darrian Petti MD is Hospitalizing Provider. js 15:16 Patient admitted, IV remains in place. ld1 04/23 06:50 Primary Nurse role handed off by Aleksey Majano, RN rv1 07:44 Sandra Prakash, NICK is Primary Nurse. me1 Administered Medications: 04/22 11:07 Drug: D10 in Water IVP 250 ml Route: IVP; Site: right antecubital; bp 11:28 Not Given (Other Intervention Used): NS 0.9% IV 500 ml IV at bolus once bp Medication: 10:32 VIS not applicable for this client. ld1 Outcome: 12:04 Decision to Hospitalize by Provider. js 15:16 Admitted to ER Hold. Please see [facility] for further documentation. ld1 15:16 Condition: stable 15:16 Instructed on the need for admit. 04/23 08:34 Patient left the ED. ph Signatures: Germania Little Corey, MD MD cha Hall, Patricia, RN RN ph Aleksey Majano, RN RN bp Lashay Rock RN RN ld1 Cristina Camarillo 1 Sandra Prakash RN RN me1
--- NOTE | 2023-04-22 12:05 | EDPHYS ---
[facility] Name: David Felton Age: 63 yrs Sex: Male : 1960 Arrival Date: 04/22/2023 Time: 10:16 Bed 5 Private MD: ED Physician Jesus Begum HPI: 04/22 10:43 This 63 yrs old Black Male presents to ER via EMS with complaints of Low Blood Sugar. js 10:43 The patient or guardian reports hypoglycemia, that was potentially precipitated by no js particular event. Onset: The symptoms/episode began/occurred just prior to arrival, this morning. Associated signs and symptoms: Pertinent positives: weakness. Current symptoms: In the emergency department the patient's symptoms are unchanged from the initial presentation. The patient has not experienced similar symptoms in the past. Historical: - Allergies: 10:31 No Known Allergies; ld1 - PMHx: 10:31 Hypertensive disorder; ld1 - PSHx: 10:31 diverticulitis SX; ld1 - Immunization history:: Adult Immunizations up to date. - Social history:: Smoking status: Patient denies any tobacco usage or history of. Patient/guardian denies using alcohol. ROS: 10:45 Constitutional: Negative for fever, chills, and weight loss, Eyes: Negative for injury, js pain, redness, and discharge, ENT: Negative for injury, pain, and discharge, Neck: Negative for injury, pain, and swelling, Cardiovascular: Negative for chest pain, palpitations, and edema, Respiratory: Negative for shortness of breath, cough, wheezing, and pleuritic chest pain, Abdomen/GI: Negative for abdominal pain, nausea, vomiting, diarrhea, and constipation, Back: Negative for injury and pain, : Negative for injury, bleeding, discharge, and swelling, MS/Extremity: Negative for injury and deformity, Skin: Negative for injury, rash, and discoloration, Neuro: Negative for headache, weakness, numbness, tingling, and seizure, Psych: Negative for depression, anxiety, suicide ideation, homicidal ideation, and hallucinations, Allergy/Immunology: Negative for hives, rash, and allergies, Endocrine: Negative for neck swelling, polydipsia, polyuria, polyphagia, and marked weight changes, Hematologic/Lymphatic: Negative for swollen nodes, abnormal bleeding, and unusual bruising. Exam: 10:45 Constitutional: This is a well developed, well nourished patient who is awake, alert, js and in no acute distress. Head/Face: Normocephalic, atraumatic. Eyes: Pupils equal round and reactive to light, extra-ocular motions intact. Lids and lashes normal. Conjunctiva and sclera are non-icteric and not injected. Cornea within normal limits. Periorbital areas with no swelling, redness, or edema. ENT: Nares patent. No nasal discharge, no septal abnormalities noted. Tympanic membranes are normal and external auditory canals are clear. Oropharynx with no redness, swelling, or masses, exudates, or evidence of obstruction, uvula midline. Mucous membranes moist. Neck: Trachea midline, no thyromegaly or masses palpated, and no cervical lymphadenopathy. Supple, full range of motion without nuchal rigidity, or vertebral point tenderness. No Meningismus. Chest/axilla: Normal chest wall appearance and motion. Nontender with no deformity. No lesions are appreciated. Cardiovascular: Regular rate and rhythm with a normal S1 and S2. No gallops, murmurs, or rubs. Normal PMI, no JVD. No pulse deficits. Respiratory: Lungs have equal breath sounds bilaterally, clear to auscultation and percussion. No rales, rhonchi or wheezes noted. No increased work of breathing, no retractions or nasal flaring. Abdomen/GI: Soft, non-tender, with normal bowel sounds. No distension or tympany. No guarding or rebound. No evidence of tenderness throughout. Back: No spinal tenderness. No costovertebral tenderness. Full range of motion. Male : Normal genitalia with no discharge or lesions. Skin: Warm, dry with normal turgor. Normal color with no rashes, no lesions, and no evidence of cellulitis. Neuro: Awake and alert, GCS 15, oriented to person, place, time, and situation. Cranial nerves II-XII grossly intact. Motor strength 5/5 in all extremities. Sensory grossly intact. Cerebellar exam normal. Normal gait. Psych: Awake, alert, with orientation to person, place and time. Behavior, mood, and affect are within normal limits. 10:45 Musculoskeletal/extremity: Extremities: ROM: Tendon exam: Nails: finger tip necrosis , per usual. Vital Signs: 10:29 BP 136 / 62; Pulse 83; Resp 18; Temp 97.5(O); Pulse Ox 100% on R/A; Weight 85.28 kg; ld1 Pain 0/10; 11:37 BP 153 / 63; Pulse 76; Resp 18; Pulse Ox 100% on R/A; ld1 10:29 Pain Scale: Adult ld1 MDM: 10:19 Patient medically screened. [facility] 10:46 Data reviewed: vital signs, nurses notes, lab test result(s), EKG. Consideration of [facility] Admission/Observation Escalation of care including admission/observation considered. I considered the following discharge prescriptions or medication management in the emergency department Medications were administered in the Emergency Department. See MAR. Test considered but Not performed: Labs: cbc, comp met. Care significantly affected by the following chronic conditions: Hypertension, pvd. Counseling: I had a detailed discussion with the patient and/or guardian regarding the historical points, exam findings, and any diagnostic results supporting the discharge/admit diagnosis, lab results. 04/22 10:47 Order name: CBC with Diff; Complete Time: 11:59 [facility] 04/22 10:47 Order name: Comprehensive Metabolic Panel; Complete Time: 11:59 [facility] 04/22 10:48 Order name: Glucose, Ancillary Testing; Complete Time: 11:59 [facility] 04/22 14:50 Order name: Glucose, Ancillary Testing [facility] 04/22 16:08 Order name: Hemoglobin A1c [facility] 04/22 16:09 Order name: Phosphorus [facility] 04/22 16:09 Order name: NT PRO-BNP [facility] 04/22 16:09 Order name: T4 Free [facility] 04/22 16:09 Order name: Magnesium [facility] 04/22 16:09 Order name: Thyroid Stimulating Hormone [facility] 04/22 16:14 Order name: Urinalysis w/ reflexes [facility] 04/22 17:48 Order name: Glucose, Ancillary Testing [facility] 04/22 20:47 Order name: Glucose, Ancillary Testing [facility] 04/22 22:09 Order name: Glucose, Ancillary Testing [facility] 04/22 23:26 Order name: Glucose, Ancillary Testing [facility] 04/23 02:11 Order name: Glucose, Ancillary Testing [facility] 04/23 02:54 Order name: CBC with Automated Diff [facility] 04/23 03:01 Order name: Basic Metabolic Panel [facility] 04/23 03:01 Order name: Lipid Profile [facility] 04/23 05:11 Order name: Glucose, Ancillary Testing [facility] 04/23 07:58 Order name: Glucose, Ancillary Testing [facility] 04/22 13:13 Order name: 60g Consistent Carbohydrate (ADA ) [facility] Administered Medications: 11:07 Drug: D10 in Water IVP 250 ml Route: IVP; Site: right antecubital; bp 11:28 Not Given (Other Intervention Used): NS 0.9% IV 500 ml IV at bolus once bp Disposition Summary: 04/22/23 12:04 Hospitalization Ordered Hospitalization Status: Observation js Provider: Darrian Petit cha Condition: Fair js Problem: new js Symptoms: have improved js Bed/Room Type: Standard [facility] Location: Telemetry/MedSurg (observation)(04/23/23 07:40) bd Room Assignment: [facility](04/23/23 07:40) bd Diagnosis - Altered mental status, unspecified js - Adverse effect of insulin and oral hypoglycemic [antidiabetic] drugs - [facility] Glipizide/Insulin(04/22/23 12:09) Forms: - Medication Reconciliation Form js - SBAR form [facility] - Leadership Thank You Letter [facility] Signatures: Dispatcher [employer] [facility] Germania Little Corey, MD MD cha Leal, Jahala RN RN [email or web address] Aleksey Majano RN RN Lashay Alarcon RN RN ld1 Corrections: (The following items were deleted from the chart) 12:09 12:04 Adverse effect of insulin and oral hypoglycemic [antidiabetic] drugs js [facility] 13:22 12:04 Telemetry/MedSurg (observation) js Jeanie 13:22 12:04 js jefferson 04/23 07:40 04/22 13:22 [facility] ER HOLD [email or web address] bd 04/23 07:40 04/22 13:22 ERHOLD- jl7 bd
[2023-04-22] MEDS ORDERED: TRAMADOL HCL 50 MG TAB PO PRN (13:07)
[2023-04-22] MEDS ORDERED: ACETAMINOPHEN 325 MG TABLET PO PRN (13:07)
[2023-04-22] MEDS ORDERED: D10W 250 ML BAG IV PRN (13:10)
[2023-04-22] MEDS ORDERED: GLUCAGON 1 MG/VIAL IM PRN (13:10)
[2023-04-22] MEDS: INSULIN -REGULAR HUMAN 50 UNIT/0.5 ML ML SQ SCH ×6 (13:15→23:15)
[2023-04-22 14:16] VITALS: BMI 26.9
[2023-04-22] MEDS ORDERED: ONDANSETRON 4 MG/2 ML VIAL IV PRN (14:38)
--- NOTE | 2023-04-22 14:41 | P.HP ---
Certification for Inpatient Patient admitted to: Observation With expected LOS: <2 Midnights Patient will require the following post-hospital care: None Practitioner: I am a practitioner with admitting privileges, knowledge of patient current condition, hospital course, and medical plan of care. Services: Services provided to patient in accordance with Admission requirements found in Title 42 Section 412.3 of the Code of Federal Regulations Patient History Date of Service: 04/22/23 Reason for admission: Hypoglycermia History of Present Illness: Patient 63-year-old male with a past medical history significant for DM 2, hypertension who presents with complaint of hypoglycemia and altered mental status onset this morning. Patient is on NPH 22 units twice daily. Patient reported that he took his insulin this morning as scheduled. Patient reported that after a while he became diaphoretic. Patient was noted with some episode of intermittent confusion. Patient denies any other signs and symptoms. Symptoms are aggravated or relieved by nothing. Patient was brought to the hospital for medical evaluation. Allergies No Known Allergies Allergy (Unverified 08/16/21 20:01) Home Medications: Atorvastatin Calcium [Lipitor*] 1 tab PO DAILY 11/06/21 Amlodipine [Norvasc*] 10 mg PO DAILY #30 tab 11/08/21 Furosemide [Lasix] 40 mg PO DAILY #30 tab 11/08/21 Hydralazine [Apresoline*] 10 mg PO BID PRN #60 tab 11/08/21 - Past Medical/Surgical History Has patient received pneumonia vaccine in the past: No Diabetic: No -: Prior history of diabetes-patient states his diabetes has resolved. 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 - Family History Mother -: Heart disease, Stroke - Social History Smoking Status: Former smoker Alcohol use: No CD- Drugs: No Caffeine use: No Place of Residence: Home Review of Systems General: Sweats Eyes: Unremarkable ENT: Unremarkable Respiratory: Unremarkable Cardiovascular: Unremarkable Gastrointestinal: Unremarkable Genitourinary: Unremarkable Musculoskeletal: Unremarkable Integumentary: Unremarkable Neurological: Confusion Lymphatics: Unremarkable Physical Examination - Physical Exam General: Alert, In no apparent distress, Oriented x3, Cooperative, Confused HEENT: Atraumatic, PERRLA, Mucous membr. moist/pink, EOMI, Sclerae nonicteric Neck: Supple, 2+ carotid pulse no bruit, No LAD, Without JVD or thyroid abnormality Respiratory: Clear to auscultation bilaterally, Normal air movement Cardiovascular: No edema, Regular rate/rhythm, Normal S1 S2 Capillary refill: <2 Seconds Gastrointestinal: Normal bowel sounds, Soft and benign, Non-distended, No tenderness Musculoskeletal: No clubbing, No swelling, No tenderness Integumentary: No rashes, No significant lesion Neurological: Normal speech, Normal tone, Normal affect Lymphatics: No axilla or inguinal lymphadenopathy - Studies Laboratory Data (last 24 hrs) 04/22/23 04/22/23 11:05 11:05 WBC 7.30 Hgb 10.6 L Hct 32.6 L Plt Count 170 Sodium 135 L Potassium 3.7 BUN 40 H Creatinine 1.56 H Glucose 66 L Total Bilirubin 0.6 AST 47 H ALT 41 Alkaline Phosphatase 108 Assessment and Plan - Plan --Hypoglycemia associated with DM2. BS monitoring with sliding scale insulin. Blood sugar on presentation was 40mg\dl. Patient given dextrose in the ER. Continue supportive care. --Acute metabolic encephalopathy. Likely secondary to hypoglycemia. AMS currently resolved. Continue supportive care. -- Hypertension. Poorly controlled. Continue home medications and hydralazine as needed. --Hyperlipidemia. Continue statin --Anemia of chronic disease. H&H stable. We will continue to monitor hemoglobin and transfuse if less than 7.0. --CKD 3A. Stable. We will continue to monitor renal functions. --DVT prophylaxis with Lovenox subQ. Discharge Plan: Home Plan to discharge in: 48 Hours - Advance Directives Does patient have a Living Will: No Does patient have a Durable POA for Healthcare: No - Code Status/Comfort Care Code Status Assessed: Yes Physician Review: Patient Assessed, Agree with Above Assessment and Plan Critical Care: No
[2023-04-22 16:07] LABS: Phosphorus 4.1 mg/dL (2.5-4.9)
[2023-04-22 16:08] LABS: Magnesium 1.7 mg/dL (1.6-2.4); Thyroid Stimulating Hormone 8.3 uIU/mL (0.358-3.740)
[2023-04-22 16:14] LABS: Specific Gravity 1.011 (1.005-1.030); Urine Bacteria None Seen /HPF (<20); Urine Bilirubin NEGATIVE (Negative); Urine Blood Negative (Negative); Urine Clarity Clear (Clear); Urine Color Light-Yellow (Yellow); Urine Glucose NEGATIVE (Negative); Urine Protein 2+ (Negative); Urine RBC <5 /HPF (None Seen); Urine Urobilinogen Normal (Normal); Urine pH 5.5 (5.0-7.0)
[2023-04-22] MEDS ORDERED: HYDRALAZINE HCL 10 MG TABLET PO PRN (22:36)
[2023-04-23] MEDS: INSULIN -REGULAR HUMAN 50 UNIT/0.5 ML ML SQ SCH ×8 (01:15→16:20)
[2023-04-23 02:48] LABS: Absolute Lymphocytes (CBC) 1.3 K/uL (0.7-4.9); Hematocrit 32.2 % (39.6-49.0); Lymphocytes % 16.9 % (15.3-44.8); MPV 9.8 fL (7.6-11.3); Platelets 164 thou/uL (152-406); RBC Red Blood Cell Count 3.83 M/uL (4.33-5.43)
[2023-04-23 03:00] LABS: Potassium 3.7 mEq/L (3.5-5.1)
[2023-04-23 08:39] VITALS: O2SAT 100
[2023-04-23] MEDS ORDERED: FUROSEMIDE 40 MG TABLET PO SCH (09:00)
[2023-04-23] MEDS ORDERED: AMLODIPINE 10 MG TAB PO SCH (09:00)
[2023-04-23] MEDS ORDERED: ASPIRIN 81 MG CHEWABLE TABLET PO SCH (09:00)
[2023-04-23] MEDS ORDERED: ENOXAPARIN 40 MG/0.4 ML SQ SCH (09:00)
[2023-04-23] MEDS ORDERED: ATORVASTATIN 10 MG TAB PO SCH (09:00)
[2023-04-23 17:58] VITALS: BP 121/56; TEMP 98.1
== END 2023-04-23 20:31 | disposition home or self-care (01) ==
LOC: ER 10:16 → ERHOLD 13:06 → 2ND 04-23 08:23
PROVIDERS: ADMIT Hospitalist; ATTEND Hospitalist
DX: E11.649 Type 2 diabetes mellitus with hypoglycemia without coma (principal); G93.41 Metabolic encephalopathy; R41.0 Disorientation, unspecified; I10 Essential (primary) hypertension; E78.5 Hyperlipidemia, unspecified; N18.31 Chronic kidney disease, stage 3a; D63.1 Anemia in chronic kidney disease
CPT/HCPCS: 85025 ×2; 81001; 80048; 36415 ×2; 83735; 84100; 80061; 82947 ×11; 84443; 83036; 84439; 80053; 83880; J1650; J7040; G0378

== ENCOUNTER 2024-03-30 00:28 | Inpatient (IN) | payer BC, MEDICARE ==
[2024-03-30] MEDS ORDERED: Magnesium Sulfate 2gm IVPB 2 G/50 ML BAG IV ONE (00:52)
--- OUTSIDE RECORDS SUMMARY | 2024-03-30 01:31 | XMS REPORT | Continuity of Care Document ---
Author Name Unknown Address [address] [facility] [address] [place] [address] [facility] thconnect Address [address] [facility] [place] [address] Care Team Providers Care Cut Out Stitcher Name Role Phone Savannah Grande NP Primary Care Physician + [phone] Burke Long MD Attending Clinician [phone] SAVANNAH GRANDE Attending Clinician Unavailab SAVANNAH Parra Attending Clinician UnavailNOEL Barney Attending Clinician Unavailable Emelia Locke Attending Clinician [phone] Noel Moreland MD Attending Clinician [phone] Karen Benavides RN Attending Clinician [phone] SIXTO MCKEON Attending Clinician Unavailable Stephanie Harding Attending Clinician [phone] Sixto Mckeon DO Attending Clinician [phone] Bernadine Che MD Attending Clinician [phone] Katarina Sorenson Attending Clinician Rolf bowie Doctor Unassigned, Progress Attending Clinician U alejandra Mejia RNJenny Attending Clinician UnavailAngelia GRANADOW, Caridad Marie Attending Clinician [phone] Moo ROMERO, Tatiana Borrego Attending Clinician +[phone] Marilu Grant Attending Clinician 2, [facility] Attending Clinician Unavailable Aydin Mclean MD Attending Clinician [phone] SHANON GALLARDO Attending Clinician Unavailable AYDIN MCLEAN Attending Clinician Unavailable Herminia Segovia RN Attending Clinician +[phone] Mark [facility], Janeen Valle Attending Clinician Unava ilable SALAZAR, MARIOAQ Attending Clinician Unavailable CHARLES COLLADO Attending Clinician Unavailable Marcial Munson MD Attending Clinician +- [phone] BURKE LONG Attending Clinician Unavailable Allyn Smith LVN Attending Clinician + [phone] CHRISTOPHER DUMONT Attending Clinician Unavailable Aimee Dickson MD Attending Clinician +[phone] Isaac Vaughan DO Attending Clinician +[phone] Rebekha Odom MD Attending Clinician + Elizabeth Galloway MD Attending Clinician [phone] KIERSTEN OSORIO Attending Clinician UnavailKiersten Benton Attending Clinician + [phone] Salazar TRINIDAD, Ilana Attending Clinician +[phone] [facility] Attending Clinician Unavailable Ana Quinones DO Attending Clinician +[phone] ANA QUINONES Attending Clinician Unavailable ANA QUINONES Attending Clinician Unavailable Bety Boogie RN Attending Clinician Unavai BRIAN Bryson Attending Clinician Unavailable Xiomara To MD Attending Clinician +[phone] Montana Ríos MD, Jeremías Quiroz Attending Clinician + Brian Matthew MD Attending Clinician +[phone] AYLIN ALCANTAR Attending Clinician UnavailAylin Diamond Attending Clinician XIOMARA TO Attending Clinician Unavailable Maddi Starr MD Attending Clinician [phone] Unknown, Attending Attending Clinician Unavailab MADDI Hinojosa Attending Clinician Unavailable Marisabel TRINIDAD, Christopher Attending Clinician +[phone] [facility] Rolf LOPEZ [facility] Attending Clinician Rolf Clifford RN, Nicole Truong Attending Clinician Unavailab SIGRID Banegas Attending Clinician Unavailjenna Perdomo MD, Brandy Harris Attending Clinician +[phone] Milton Andrade MD Attending Clinician +[phone] Jana TRINIDAD, Ariel Attending Clinician +[phone] Sigrid Zaidi MD Attending Clinician [phone] Bran Palmer MD Attending Clinici an JANNET MAN Attending Clinician Unavailable REBEKAH BAILEY Attending Clinician Unavailrosemarie Bailey ACNPRebekah Attending Clinician + [phone] Grecia Harris S Attending Clinician +[phone] Gabriela Gonzalez Attending Clinician +[phone] BERNADINE CHE Admitting Clinician Unavailable Bernadine Che MD Admitting Clinician +[phone] BURKE LONG Admitting Clinician Unavailable KIERSTEN OSORIO Admitting Clinician UnavailNOEL Daugherty Admitting Clinician Unavailable JEREMÍAS CASTRO JR Admitting Clinician Rolf Castro Jr., MD, Victor J Admitting Clinician + LIZZETH LOPEZ Admitting Clinician BRAN Chavarria Admitting Clinician Unavailable Bran Palmer MD Admitting Clinici an REBEKAH BAILEY Admitting Clinician UnavailSIXTO Smith Admitting Clinician Unavailable Sixto Mckeon DO Admitting Clinician [phone] Payers Payer Name Policy Type Policy Number Effective Date Expirati on Date Source HIM [employer] BLUE ADVANTAGE HMO [id number] 2023 00:00:00 Problems Condition Name Condition Details Condition Category Status Onset Date Resolution Date Last Treatment Date Treating Clinician Comments Source Arm swelling Arm swelling Disease Active 02-27 00:00: 00 [facility] Heart failure with mildly reduced ejection fraction Heart failure with mildly reduced ejection fraction Disease Active 01-30 00:00: 00 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 S/P MVR (29mm [facility] Epic tissue prosthesis ) S/P MVR (29mm [facility] Epic tissue prosthesis ) Disease Active 02-13 00:00: 00 [facility] S/P AVR (21mm [facility] Epic Supra tissue prosthesis ) S/P AVR (21mm [facility] Epic Supra tissue prosthesis ) Disease Active 02-13 00:00: 00 [facility] S/P CABG x 1 (GARCIA-LAD) on 02/13/2023 S/P CABG x 1 (GARCIA-LAD) on 02/13/2023 Disease Active 614 00:00: 00 [facility] Gangrene of toe of both feet Gangrene of toe of both feet Disease Active 5-18 00:00: 00 [facility] 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 Disease Active 4-04 00:00: 00 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 Weakness Weakness Disease Active - 00:00: 00 [facility] Acute on chronic clinical systolic heart failure Acute on chronic clinical systolic heart failure Disease Active 2021-09 2-30 00:00: 00 [facility] Obesity (BMI 30-39.9) Obesity (BMI 30-39.9) Disease Active 2021-09 2 00:00: 00 [facility] Aortic stenosis Aortic stenosis Disease Active 2021-09 00:00: 00 [facility] Stage 3b chronic kidney disease Stage 3b chronic kidney disease Disease Active 2021-09 00:00: 00 [facility] Acute on chronic diastolic congestive heart failure Acute on chronic diastolic congestive heart failure Disease Active 2021-09 00:00: 00 [facility] Left heart failure Left heart failure Disease Active 2021-09 00:00: 00 Overview: Formattin g of this note might be different from the original. Added automatic ally from request for surgery [id number] [facility] Nonrheumat ic mitral valve stenosis Nonrheumat ic mitral valve stenosis Disease Active 2021-09 0-04 00:00: 00 [facility] Cardiomyop athy, unspecifie d type Cardiomyop athy, unspecifie d type Disease Active 2021-09 0-04 00:00: 00 [facility] Troponin I above reference range Troponin I above reference range Disease Active 2021-09 0-04 00:00: 00 [facility] Pulmonary hypertensi on Pulmonary hypertensi on Disease Active 7 00:00: 00 [facility] Elevated brain natriureti c peptide (BNP) level Elevated brain natriureti c peptide (BNP) level Disease Active 03-01 00:00: 00 [facility] Elevated troponin I level Elevated troponin I level Disease Active 03-01 00:00: 00 [facility] COVID COVID Disease Active 03-01 00:00: 00 [facility] Essential hypertensi on Essential hypertensi on Disease Active 03-01 00:00: 00 [facility] Acute on chronic diastolic CHF (congestiv e heart failure), NYHA class 3 Acute on chronic diastolic CHF (congestiv e heart failure), NYHA class 3 Disease Active 03-01 00:00: 00 [facility] Dyslipidem ia Dyslipidem ia Disease Active 03-01 00:00: 00 [facility] Type 2 diabetes mellitus with other specified complicati on Type 2 diabetes mellitus with other specified complicati on Disease Active 03-01 00:00: 00 [facility] Acute respirator y failure with hypoxia Acute respirator y failure with hypoxia Disease Active 03-01 00:00: 00 [facility] History of COVID-19 History of COVID-19 Disease Active 03-01 00:00: 00 [facility] Elevated brain natriureti c peptide (BNP) level Elevated brain natriureti c peptide (BNP) level Disease Active 03-01 00:00: 00 [facility] Hypoxia Hypoxia Disease Active 02-27 00:00: [address] [facility] Abnormal CT scan Abnormal CT scan Disease Active 02-27 00:00: 00 [facility] Acute kidney injury superimpos ed on CKD Acute kidney injury superimpos ed on CKD Disease Active 02-27 00:00: 00 [facility] Allergies, Adverse Reactions, Alerts Allergy Name Allergy Type Status Severity Reaction(s) Onset Date Inactive Date Treating Clinician Comments Source HEPARIN DRUG INGREDI Active Other-Cmnt 03-05 00:00: 00 [facility] Heparin Propensi ty to adverse reaction s Active Other - See comments 03-05 00:00: 00 HIT + [facility] NO KNOWN ALLERGIE S Drug Class Active [facility] Family History Family Member Diagnosis Comments Start Date Stop Date Sourc e Natural brother Hypertension [facility] Natural father Cancer Unive [facility] Natural mother Coronary Heart Disease [facility] Natural mother Stroke Unive [facility] Hy[facility] Social History Social Habit Start Date Stop Date Quantity Comments Source Gender identity [facility] Sexual orientation U [facility] History of tobacco use Passive smoker [facility] History SDOH Social Connections Get Together [facility] History SDOH Social Connections [facility] History SDOH Social Connections Membership [facility] History SDOH Social Connections Meetings [facility] Alcoholic beverage intake 2024-03-17 00:00:00 2024-03-17 00:00:00 1.29 /d [facility] Tobacco use and exposure 2024-01-17 00:00:00 2024-01-17 00:00:00 Smokeless tobacco non-user [facility] History of Social function 2024-01-17 00:00:00 2024-01-17 00:00:00 [facility] Cigarettes smoked current (pack per day) - Reported 2024-01-17 00:00:00 2024-01-17 00:00:00 [facility] Cigarette pack-years 2024-01-17 00:00:00 2024-01-17 00:00:00 [facility] Alcohol intake 2023-08-30 00:00:00 2023-08-30 00:00:00 1.29 /d [facility] History SDOH Physical Activity DPW 2023-02-15 00:00:00 2023-02-15 00:00:00 0 [facility] History SDOH Physical Activity MPS 2023-02-15 00:00:00 2023-02-15 00:00:00 0 [facility] History SDOH Housing Unable to Pay 2023-02-15 00:00:00 2023-02-15 00:00:00 2 [facility] History SDOH Housing Places Lived 2023-02-15 00:00:00 2023-02-15 00:00:00 1 [facility] History SDOH Housing Homeless Last Year 2023-02-15 00:00:00 2023-02-15 00:00:00 2 [facility] History SDOH Alcohol Frequency 2023-02-15 00:00:00 2023-02-15 00:00:00 1 [facility] History SDOH Social Connections Phone 2023-02-15 00:00:00 2023-02-15 00:00:00 5 [facility] History SDOH Social Connections Living 2023-02-15 00:00:00 2023-02-15 00:00:00 3 [facility] Exposure to SARS-CoV-2 (event) 2023-01-07 00:00:00 2023-01-17 12:57:00 Not sure [facility] History SDOH Alcohol Std Drinks 2022-10-03 00:00:00 2022-10-03 00:00:00 0 [facility] History SDOH Alcohol Binge 2022-10-03 00:00:00 2022-10-03 00:00:00 1 [facility] History SDOH Financial 2022-10-03 00:00:00 2022-10-03 00:00:00 5 [facility] History SDOH Food Worry 2022-10-03 00:00:00 2022-10-03 00:00:00 1 [facility] History SDOH Food Scarcity 2022-10-03 00:00:00 2022-10-03 00:00:00 1 [facility] History SDOH Transport Med 2022-10-03 00:00:00 2022-10-03 00:00:00 2 [facility] History SDOH Transport Non-Med 2022-10-03 00:00:00 2022-10-03 00:00:00 2 [facility] Alcohol Comment 2022-09-02 00:00:00 2022-09-02 00:00:00 drank a "whole lot" he states "everyday" until about 10 years ago [facility] Tobacco Comment 2022-08-31 00:00:00 2022-08-31 00:00:00 Quit 34 years ago [facility] Sex assigned at 1960 00:00:00 1960 00:00:00 [facility] Smoking Status Start Date Stop Date Source Ex-smoker 2024-01-17 00:00:00 2024-01-17 00:00[facility]00 [facility] Ordered Medication Name Filled Medication Name Start Date Stop Date Current Medication? Ordering Clinician Indication Dosage Frequency Signature (SIG) Comments Components Source hydrALAZINE 25 mg tablet 03-13 00:00: 00 Yes [id number] 25mg Take 1 tablet by mouth in the morning and 1 tablet in the evening. [facility] atorvastati n 40 mg tablet 03-13 00:00: 00 Yes [id number] 40mg Take 1 tablet by mouth in the morning. [facility] amLODIPine 10 mg tablet 03-13 00:00: 00 Yes [id number] 10mg Take 1 tablet by mouth in the morning. [facility] bumetanide 1 mg tablet 03-13 00:00: 00 Yes [id number] 1mg Take 1 tablet by mouth in the morning. [facility] carvediloL 12.5 mg tablet 03-13 00:00: 00 Yes [id number] 12.5mg Take 1 tablet by mouth in the morning and 1 tablet in the evening. Take with meals. [facility] perflutren protein-A microsphr (OPTISON) injection 3 mL 03-02 15:15: 00 03-02 15:15 :00 No [id number] 00 3mL 3 mL, IV Push, ONCE, 1 dose, On Sat03/02/24 at 1015, Routine [facility] apixaban (ELIQUIS) tablet 10 mg 03-02 13:00: 00 03-07 12:59 :00 Yes 10mg [Order 1 Start] Name: apixaban (ELIQUIS) tablet 10 mg Signed Summary: 10 mg, Oral, BID, 10 doses, First dose on Sat03/02/24 at 0800, Last dose on Sat03/06/24 at 2000, Routine, Indication s: DVT/PE [Order 1 End] [Order 2 Start] Name: apixaban (ELIQUIS) tablet 5 mg Signed Summary: 5 mg, Oral, BID, First dose on Sat03/06/24 at 2000, Until Discontinu ed, Routine, Indication s: DVT/PE [Order 2 End] [facility] apixaban (ELIQUIS DVT-PE TREAT 30D START) 5 mg (74 tabs) 5 mg VTE starter pack 03-02 00:00: 00 Yes [id number] 5mg Take 1 tablet by mouth SEE-INSTRU CTIONS. Follow dosing instructio ns included in package. Indication s: blood clots in deep veins and in blood vessel of the lung [facility] it[facility] hydrALAZINE 25 mg tablet 03-02 00:00: 00 03-13 00:00 :00 No [id number] 25mg Take 1 tablet by mouth in the morning and 1 tablet in the evening. Do all this for 30 days. [facility] it[facility] hydrALAZINE (APRESOLINE ) tablet 10 mg 03-01 19:45: 00 Yes 10mg 10 mg, Oral, BID, First dose on 03/01/24 at 1445, Until Discontinu ed, Routine [facility] insulin NPH and regular human 70-30 (70-30 U-100 INSULIN) 100 unit/mL (70-30) injection 10 Units 02-28 14:00: 00 Yes 10U 10 Units, Subcutaneo us, QAM+PM, First dose on 02/29/24 at 0900, Until Discontinu ed, Routine [facility] clopidogreL (PLAVIX) 75 mg tablet 75 mg 02-28 14:00: 00 Yes 75mg 75 mg, Oral, DAILY, First dose on 02/29/24 at 0900, Until Discontinu ed, Routine [facility] atorvastati n (LIPITOR) tablet 40 mg 02-28 14:00: 00 Yes 40mg 40 mg, Oral, DAILY, First dose on 02/29/24 at 0900, Until Discontinu ed, Routine [facility] amLODIPine (NORVASC) tablet 10 mg 02-28 14:00: 00 Yes 10mg 10 mg, Oral, DAILY, First dose on 02/29/24 at 0900, Until Discontinu ed, Routine [facility] fondaparinu x (ARIXTRA) syringe 10 mg 02-28 14:00: 00 03-02 01:00 :44 No 10mg 10 mg, Subcutaneo us, Q24H, First dose (after last modificati on) on 02/29/24 at 0900, Until Discontinu ed, Routine [facility] bumetanide (BUMEX) injection 1 mg 02-28 13:00: 00 Yes 1mg 1 mg, Slow IV Push, Q12H, First dose on Sat02/29/24 at 0800, Until Discontinu ed, Routine [facility] carvediloL (COREG) tablet 12.5 mg 02-28 13:00: 00 Yes 12.5mg 12.5 mg, Oral, BID MEALS, First dose on Sat02/29/24 at 0800, Until Discontinu ed, Routine [facility] Sliding Scale Insulin-Reg ular 02-28 12:30: 00 Yes Subcutaneo us, AC+HS, First dose on 02/29/24 at 0730, Until Discontinu ed, Routine [facility] glucagon (GLUCAGEN DIAGNOSTIC KIT) injection 1 mg 02-28 10:26: 22 Yes 1mg 1 mg, Intramuscu lar, PRN, Starting on 02/29/24 at 0526, Until Discontinu ed, JOSE, Blood Glucose < or = 70 mg/dL and patient is NPO, unable to swallow or has mental changes. [facility] dextrose 50 % in water (D50W) injection 25 mL 02-28 10:26: 22 Yes 25mL 25 mL, Slow IV Push, PRN, Starting on 02/29/24 at 0526, Until Discontinu ed, JOSE, Blood Glucose < or = 70 mg/dL and patient is NPO, unable to swallow or has mental status changes. [facility] hydralAZINE (APRESOLINE ) injection 10 mg 02-28 04:21: 06 Yes 10mg 10 mg, Slow IV Push, Q4HPRN, Starting on Sat02/28/24 at 2321, Until Discontinu ed, Routine, DBP=>100; SBP=>160 [facility] carvediloL (COREG) tablet 12.5 mg 02-28 04:00: 00 02-28 03:10 :00 No 12.5mg 12.5 mg, Oral, ONCE, 1 dose, On Sat02/28/24 at 2300, Routine [facility] ondansetron (ZOFRAN (PF)) injection 4 mg 02-28 02:01: [address] [facility] acetaminoph en (TYLENOL) tablet 650 mg 02-28 02:00: [address] [facility] furosemide (LASIX) injection 40 mg 02-28 01:00: 00 02-28 01:10 :00 No 40mg 40 mg, IV Push, ONCE, 1 dose, On Sat02/28/24 at 2000, JOSE [facility] NOVOLIN 70/30 U-100 INSULIN 100 unit/mL (70-30) suspension 02-27 00:00: 00 Yes [id number] INJECT 22 UNITS SUBCUTANEO USLY TWICE DAILY BEFORE BREAKFAST AND BEFORE SUPPER [facility] carvediloL 12.5 mg tablet 01-30 00:00: 00 03-13 00:00 :00 No [id number] 12.5mg Take 1 tablet by mouth in the morning and 1 tablet in the evening. Take with meals. [facility] amLODIPine 10 mg tablet 01-30 00:00: 00 03-13 00:00 :00 No [id number] 10mg Take 1 tablet by mouth in the morning. [facility] bumetanide 1 mg tablet 01-30 00:00: 00 03-13 00:00 :00 No [id number] 1mg Take 1 tablet by mouth in the morning. [facility] flash glucose sensor (FREESTYLE CHIDI 2 SENSOR) Kit 05-24 00:00: 00 Yes [id number] 1{each} 1 Each every 14 (fourteen) days. [facility] flash glucose sensor (FREESTYLE CHIDI 2 SENSOR) Kit 05-24 00:00: 00 Yes [id number] 1{each} 1 Each every 14 (fourteen) days. [facility] Diclofenac Sodium (VOLTAREN) 1 % gel 05-24 00:00: 00 Yes [id number] 9108 Take 2-4 grams three times a day as needed for pain [facility] lidocaine 5 % ointment 05-24 00:00: 00 Yes [id number] 9108 Apply to area(s) 2 (two) times daily. [facility] atorvastati n 40 mg tablet 05-24 00:00: 00 03-13 00:00 :00 No [id number] 40mg Take 1 tablet by mouth in the morning. [facility] clopidogreL 75 mg tablet 05-24 00:00: 00 03-02 00:00 :00 No [id number] 75mg Take 1 tablet by mouth in the morning. [facility] bumetanide 1 mg tablet 05-24 00:00: 00 01-30 00:00 :00 No [id number] 1mg Take 1 tablet by mouth every morning and evening. [facility] DULoxetine 30 mg capsule 05-02 00:00: 00 05-23 00:00 :00 No [id number] 9104 30mg Take 1 capsule by mouth in the morning. [facility] pregabalin 50 mg capsule 05-02 00:00: 00 05-23 00:00 :00 No [id number] 9104 50mg Take 1 capsule by mouth in the morning and 1 capsule in the evening. [facility] bumetanide 1 mg tablet 04-18 00:00: 00 05-24 00:00 :00 No [id number] 1mg Take 1 tablet by mouth every morning and evening. [facility] clopidogreL 75 mg tablet 04-18 00:00: 00 05-24 00:00 :00 No [id number] 75mg Take 1 tablet by mouth in the morning. [facility] insulin NPH 100 unit/mL injection 04-18 00:00: 00 05-23 00:00 :00 No [id number] 10U inject 10 Units under the skin every morning and evening. [facility] pregabalin (LYRICA) capsule 25 mg 04-01 14:00: 00 Yes 25mg 25 mg, Oral, DAILY, First dose (after last modificati on) on 04/01/23 at 0900, Until Discontinu ed, Routine [facility] HYDROcodone -acetaminop hen (HYCET) 7.5-325 mg/15 mL solution 7.5 mg 03-31 05:00: 00 Yes 7.5mg 7.5 mg, Oral, Q6HPRN, Starting on Sat03/31/23 at 0000, Until Discontinu ed, Routine, Pain (scale 4-6) [facility] FENTanyl PF (SUBLIMAZE (PF)) injection 50 mcg 03-30 14:51: 42 Yes 50ug 50 mcg, Slow IV Push, Q6HPRN, Starting on 03/30/23 at 0951, Until Discontinu ed, Routine, Pain (scale 7-10), For acute breakthrou gh pain, dressing changes [facility] clopidogreL (PLAVIX) 75 mg tablet 75 mg 03-30 14:00: 00 Yes 75mg 75 mg, Oral, DAILY, First dose on 03/30/23 at 0900, Until Discontinu ed, Routine [facility] methocarbam oL (ROBAXIN) tablet 1,000 mg 03-30 13:00: 00 Yes 1000mg 1,000 mg, Oral, QID, First dose (after last modificati on) on 03/30/23 at 0800, Until Discontinu ed, Routine [facility] morpHINE (4 mg/mL) injection 4 mg 03-30 12:12: 40 Yes 4mg 4 mg, Slow IV Push, Q4HPRN, Starting on 03/30/23 at 0712, Until Discontinu ed, Routine, Pain (scale 7-10) [facility] insulin NPH (HUMULIN N) injection 10 Units 03-29 14:00: 00 Yes 10U 10 Units, Subcutaneo us, QAM+PM, First dose (after last modificati on) on Sat03/29/23 at 0900, Until Discontinu ed, Routine [facility] iodixanoL (VISIPAQUE 270-150 mL) injection 03-29 13:50: 00 03-29 20:16 :27 No PRN, Starting on Sat03/29/23 at 0850, Until Sat03/29/23 at 1516, Routine, Intra-op [facility] sodium chloride 0.9 % irrigation solution 03-29 13:50: 00 03-29 20:16 :27 No PRN, Starting on Sat03/29/23 at 0850, Until Sat03/29/23 at 1516, Intra-op [facility] heparin 10,000 units in NS 1000 mL for vascular 03-29 13:50: 00 03-29 20:16 :27 No PRN, Starting on Sat03/29/23 at 0850, Intra-op [facility] Sliding Scale Insulin - Lispro (HumaLOG) 03-29 05:00: 00 Yes Subcutaneo us, Q6H, First dose (after last modificati on) on Sat03/29/23 at 0000, Until Discontinu ed, Routine [facility] bumetanide (BUMEX) tablet 2 mg 03-27 20:03: 00 Yes 2mg 2 mg, Oral, QAM+PM, First dose on Sat03/27/23 at 1515, Until Discontinu ed, Routine [facility] heparin 10,000 units in NS 1000 mL for vascular 03-25 19:04: 00 03-25 19:25 :16 No PRN, Starting on Sat03/25/23 at 1404, Intra-op [facility] lidocaine 1% (PF) (XYLOCAINE) injection 03-25 19:01: 00 03-25 19:25 :16 No PRN, Starting on Sat03/25/23 at 1401, Until Sat03/25/23 at 1425, Routine, Intra-op [facility] insulin NPH (HUMULIN N) injection 20 Units 03-24 14:00: 00 Yes 20U 20 Units, Subcutaneo us, QAM+PM, First dose (after last modificati on) on Sat03/24/23 at 0900, Until Discontinu ed, Routine [facility] metoprolol tartrate (LOPRESSOR) tablet 12.5 mg 03-22 14:00: 00 Yes 12.5mg 12.5 mg, Oral, BID, First dose (after last modificati on) on Sat03/22/23 at 0900, Until Discontinu ed, Routine [facility] magnesium oxide (MAG-OX 400) tablet 400 mg 03-19 14:00: 00 Yes 400mg 400 mg, Oral, DAILY, First dose on Sat03/19/23 at 0900, Until Discontinu ed, Routine [facility] sodium chloride (OCEAN MIST NASAL) 0.65 % nasal spray 1 [place] 03-14 03:30: 37 Yes 1{spray } 1 [place], Nasal, PRN, Starting on Sat03/13/23 at 2230, Until Discontinu ed, Routine, Nasal stuffiness [facility] albuterol (PROVENTIL) 2.5 mg /3 mL (0.083 %) nebulizer solution 2.5 mg 03-13 13:00: 00 Yes 2.5mg 2.5 mg, Inhalation , QID, First dose on Sat03/13/23 at 0800, Until Discontinu ed, Routine [facility] ipratropium (ATROVENT) 0.02 % nebulizer solution 0.5 mg 03-13 13:00: 00 Yes .5mg 0.5 mg, Inhalation , QID, First dose on Sat03/13/23 at 0800, Until Discontinu ed, Routine [facility] docusate (COLACE) 50 mg/5 mL solution 100 mg 03-12 14:00: 00 Yes 100mg 100 mg, Oral, DAILY, First dose on Sat03/12/23 at 0900, Until Discontinu ed, Routine [facility] gabapentin (NEURONTIN) 300 mg/6 mL oral solution 100 mg 03-11 19:00: 00 Yes 100mg 100 mg, Oral, TID, First dose on Sat03/11/23 at 1400, Until Discontinu ed, Routine [facility] HYDROcodone -acetaminop hen (HYCET) 7.5-325 mg/15 mL solution 5 mg 03-11 16:12: 41 Yes 5mg 5 mg, Oral, Q6HPRN, Starting on Sat03/11/23 at 1112, Until Discontinu ed, Routine, Pain (scale 4-6), Pain (scale 7-10) [facility] Sliding Scale Insulin - Lispro (HumaLOG) 03-10 01:00: 00 Yes Subcutaneo us, Q4H, First dose (after last modificati on) on Sat03/09/23 at 2000, Until Discontinu ed, Routine [facility] NaCl 0.9% (NS) injection 10 mL 03-07 14:06: 27 Yes 10mL 10 mL, Slow IV Push, PRN, Starting on Sat03/07/23 at 0906, Until Discontinu ed, Routine, line maintenanc e [facility] sennosides (SENOKOT) tablet 8.6 mg 03-04 14:00: 00 Yes 8.6mg 8.6 mg, Oral, DAILY, First dose on Sat03/04/23 at 0900, Until Discontinu ed, Routine [facility] aspirin chewable tablet 81 mg 02-28 14:00: 00 Yes 81mg 81 mg, Oral, DAILY, First dose (after last modificati on) on Sat02/28/23 at 0900, Until Discontinu ed, Routine [facility] atorvastati n (LIPITOR) tablet 40 mg 02-28 02:00: 00 Yes 40mg 40 mg, Oral, QHS, First dose (after last modificati on) on Sat02/27/23 at 2100, Until Discontinu ed, Routine [facility] glucagon (GLUCAGEN DIAGNOSTIC KIT) injection 1 mg 02-27 04:39: 51 Yes 1mg 1 mg, Intramuscu lar, PRN, Starting on Sat02/26/23 at 2339, Until Discontinu ed, JOSE, Blood Glucose < or = 70 mg/dL and patient is NPO, unable to swallow or has mental changes. [facility] pantoprazol e (PROTONIX) 2 mg/mL oral suspension 40 mg 02-26 14:00: 00 Yes 40mg 40 mg, Enteral, DAILY, First dose on Sat02/26/23 at 0900, Until Discontinu ed, Routine [facility] dextrose 50 % in water (D50W) injection 50 mL 02-22 07:07: 51 Yes 50mL 50 mL, Slow IV Push, PRN, Starting on Sat02/22/23 at 0207, Until Discontinu ed, Routine, Blood Glucose <= 70 [facility] sennosides- docusate sodium (SENOKOT-S) 8.6-50 mg per tablet 2 tablet 02-15 14:00: 00 Yes 2{tbl} 2 tablet, Enteral, DAILY, First dose on Sat02/15/23 at 0900, Until Discontinu ed, Routine [facility] aspirin chewable tablet 81 mg 02-15 14:00: 00 Yes 81mg 81 mg, Enteral, DAILY, First dose (after last modificati on) on Sat02/15/23 at 0900, Until Discontinu ed, Routine [facility] Lidocaine (LIDOCARE) 4 % patch 1 Patch 02-15 14:00: 00 Yes 1{patch } 1 Patch, Topical, Administer over 12 Hours, DAILY, First dose on Sat02/15/23 at 0900, Until Discontinu ed, Routine [facility] atorvastati n (LIPITOR) tablet 40 mg 02-15 02:00: 00 Yes 40mg 40 mg, Enteral, QHS, First dose (after last modificati on) on Sat02/14/23 at 2100, Until Discontinu ed, Routine [facility] fentaNYL PF (SUBLIMAZE) STD 2,500 mcg in NaCl 0.9% (NS) 250 mL infusion RTU 02-14 21:57: 16 Yes 25ug/h 25-100 mcg/hr (2.5-10 mL/hr), IV Infusion, TITRATE, CPOT/Pain Scale Goals Determined by Provider, Starting on Sat02/14/23 at 1657
In itiate infusion at 25 mcg/hr. Titrate by 25 mcg/hr every 1 minute to 15 minutes to identified goal pain and/or sedation scores. Maximum dose = 200 mcg/hr. If goal not maintained at maximum allowed dose, contact prescriber .
[facility] HYDROcodone -acetaminop hen (HYCET) 7.5-325 mg/15 mL solution 5 mg 02-14 17:51: 53 Yes 5mg 5 mg, Enteral, Q4HPRN, Starting on Sat02/14/23 at 1251, Until Discontinu ed, Routine, Pain (scale 1-3) [facility] Sliding Scale Insulin - Lispro (HumaLOG) 02-14 17:00: 00 Yes Subcutaneo us, Q4H, First dose on Sat02/14/23 at 1200, Until Discontinu ed, Routine [facility] insulin regular human (HUMULIN R) 100 Units in NaCl 0.9% (NS) 100 mL infusion 02-14 16:19: 24 Yes 18U/h 18 Units/hr (18 mL/hr), IV Infusion, TITRATE, Parameters in Admin. Instr., Starting on Sat02/14/23 at 1119
PL EASE USE NORMOGLYCE YEIMY [...] 70 MG/DL: Stop insulin infusion, notify ICU housekeeping supervisor, and treat using hypoglycem ia protocol. Once BG &n bsp;greate r than 80 mg/dL start monitoring glucose every hour. Restart Insulin infusion at HALF of prior rate only when TWO consecutiv e BG levels 1 hour apart are at or above 180 mg/dL. &nbs p;FOR BLOOD GLUCOSE BETWEEN 71-139 MG/DL:&nbs p;&nbs p;Stop insulin and continue to check BG every [...] change is needed.&nb sp; N otify ICU Safety Supervisor if BG remains above 220 mg/dL for longer than 4 hours [address]
[facility] methocarbam ol (ROBAXIN) 50 mg/mL oral suspension 1,000 mg 02-14 15:00: 00 Yes 1000mg 1,000 mg, Enteral, QID, First dose on Sat02/14/23 at 1000, Until Discontinu ed, Routine [facility] acetaminoph en (TYLENOL) 160 mg/5 mL oral liquid 650 mg 02-14 15:00: 00 Yes 650mg 650 mg, Enteral, Q8H, First dose on Sat02/14/23 at 1000, Until Discontinu ed, Routine [facility] lactated ringers IV infusion 1,000 mL 02-14 14:00: 00 Yes 1000mL at 50 mL/hr, 1,000 mL, IV Infusion, CONTINUOUS , Starting on Sat02/14/23 at 0900, Until Discontinu ed, Routine [facility] vasopressin (VASOSTRICT ) 20 Units/100 mL RTU vial infusion 02-14 13:45: 00 Yes .05U/mi n 0.05 Units/min (15 mL/hr), IV Infusion, CONTINUOUS , Starting on Sat02/14/23 at 0845
DO NOT TITRATE
[facility] heparin (porcine) injection 5,000 Units 02-14 13:00: 00 Yes 5000U 5,000 Units, Subcutaneo us, Q12H, First dose on Sat02/14/23 at 0800, Until Discontinu ed, Routine [facility] glucagon (GLUCAGEN DIAGNOSTIC KIT) injection 1 mg 02-14 03:50: 24 Yes 1mg 1 mg, Intramuscu lar, PRN, Starting on Sat02/13/23 at 2250, Until Discontinu ed, JOSE, Blood Glucose < or = 70 mg/dL and patient is NPO, unable to swallow or has mental changes. [facility] milrinone in 5 % dextrose (PRIMACOR) 20 mg/100 mL (200 mcg/mL) infusion RTU 02-14 02:16: 30 Yes .125ug/ kg/min 0.125-0.38 mcg/kg/min ?106.3 kg (3.9863-12 .1182 mL/hr, rounded to 3.99-12.12 mL/hr), IV Infusion, TITRATE, Cardiac Index > 2 L/min/m2, Starting on Sat02/13/23 at 2115
In itiate infusion at 0.125 mcg/kg/min . &nb sp;Increas e by 0.125 mcg/kg/min every 15 minutes as needed to reach and maintain goal blood pressure.& nbsp;&nbsp ;Maximum dose = 0.75 mcg/kg/min . If goal not maintained at maximum allowed dose, contact prescriber .
[facility] furosemide (LASIX) injection 20 mg 02-14 02:16: 30 Yes 20mg 20 mg, IV Push, PRN, 2 doses, Starting on Sat02/13/23 at 2115, Until Discontinu ed, JOSE, Pressure Maintenanc e [facility] dextrose 10% (D10W) bolus infusion 250 mL 02-14 02:16: 30 Yes 250mL 250 mL, IV Infusion, PRN - SEE INSTRUCTIO NS, Administer over 60 Minutes, Other, If blood glucose is < or = 70 mg/dL and patient is unable to swallow or has mental status changes, Starting on Sat02/13/23 at 2115
If blood glucose is < or = [...] blood glucose is < 80 mg/dL, repeat.
[facility] naloxone (NARCAN) injection 0.1 mg 02-14 02:16: 29 Yes .1mg 0.1 mg, Slow IV Push, SEE-INSTRU CTIONS, Starting on Sat02/13/23 at 2115, Until Discontinu ed, Routine [facility] propofoL IV infusion 02-14 02:16: 29 02-15 02:15 :29 No 5ug/kg/ min 5-50 mcg/kg/min ?106.3 kg (3.189-31. 89 mL/hr, rounded to 3.19-31.89 mL/hr), IV Infusion, TITRATE, Sedation-R ASS score (0 to -1), Starting on Sat02/13/23 at 2116, For 1 day
Ini tiate infusion at 5 mcg/kg/min and titrate by 5 mcg/kg/min every 30 seconds to 10 minutes to goal sedation score. Maximum dose = 50 mcg/kg/min . If goal not maintained at maximum allowed dose, contact prescriber . Inst ructions in the first 2 hours in ICU, [...] vials should be discarded after [address]
[facility] metFORMIN 1,000 mg tablet 02-14 00:00: 00 01-19 00:00 :00 No [id number] 1000mg Take 1 tablet by mouth in the morning and 1 tablet in the evening. Take with meals. [facility] thrombin (recombinan t) (RECOTHROM) topical solution 02-13 12:56: 00 02-14 01:17 :03 No PRN, Starting on Sat02/13/23 at 0756, Until Sat02/13/23 at 2017, Routine, Intra-op [facility] ceFAZolin (ANCEF) 1 g in NaCl 0.9% (NS) 1,000 mL OR irrigation 02-13 12:56: 00 02-14 01:17 :03 No PRN, Starting on Sat02/13/23 at 0756, Intra-op [facility] heparin 1,000 unit/mL 5,000 Units, papaverine 30 mg in NaCl 0.9% (NS) 500 mL OR irrigation 02-13 12:55: 00 02-14 01:17 :03 No PRN, Starting on Sat02/13/23 at 0755, Intra-op [facility] heparin 1,000 unit/mL 2,500 Units, papaverine 60 mg in NaCl 0.9% (NS) 100 mL OR irrigation 02-13 12:55: 00 02-14 01:17 :03 No PRN, Starting on Sat02/13/23 at 0755, Intra-op [facility] heparin 1,000 unit/mL 30,000 Units in NaCl 0.9% (NS) 1,000 mL OR irrigation 02-13 12:54: 00 02-14 01:17 :03 No PRN, Starting on Sat02/13/23 at 0754, Intra-op [facility] insulin NPH and regular human 70-30 (NOVOLIN 70/30 U-100 INSULIN) 100 unit/mL (70-30) injection 01-22 00:00: 00 02-27 00:00 :00 No [id number] 22U inject 22 Units under the skin 2 (two) times daily before breakfast and dinner. [facility] glipiZIDE XL 10 mg 24 hr tablet 20 00:00: 00 05-23 00:00 :00 No [id number] 10mg Take 1 tablet by mouth daily with breakfast. [facility] metFORMIN 500 mg tablet 5-17 00:00: 00 01-19 00:00 :00 No [id number] 500mg Take 1 tablet by mouth in the morning and 1 tablet in the evening. Take with meals. [facility] atorvastati n 40 mg tablet 4-27 00:00: 00 05-24 00:00 :00 No [id number] 40mg Take 1 tablet by mouth in the morning. [facility] insulin glargine (LANTUS U-100) injection Units 10-05 23:56: 00 Yes 26U 26 Units, Subcutaneo us, Q24H, First dose (after last modificati on) on Sat10/05/22 at 1756, Until Discontinu ed, Routine [facility] Sliding Scale Insulin - lispro (humaLOG) + Fsbg Testing 10-05 18:00: 00 Yes Subcutaneo us, Q4H, First dose (after last modificati on) on Sat10/05/22 at 1200, Until Discontinu ed, Routine [facility] Blood-Gluco se Meter (RELION PRIME METER) [facility] 10-05 00:00: 00 Yes [id number] Use as directed [facility] Ins[facility] [place], Disposable, 31 gauge x 5/16" Ndle 10-05 00:00: 00 Yes [id number] Use as directed [facility]REL[facility] 10-05 00:00: 00 Yes [id number] Use as directed [facility] blood sugar diagnostic (RELION PRIME TEST STRIPS) strip 10-05 00:00: 00 Yes [id number] Use as directed [facility] Ins[facility] [place], Disposable, 31 gauge x 5/16" Ndle 10-05 00:00: 00 Yes [id number] Use as directed [facility]anc[facility] 10-[facility] 00:00: 00 Yes [id number] Use as directed [facility] dapaglifloz in (FARXIGA) 10 mg tablet 10-05 00:00: 00 01-04 04:59 :00 No [id number] 10mg Take 1 tablet by mouth in the morning for 90 days. [facility] insulin NPH 100 unit/mL injection 10-05 00:00: 00 01-04 04:59 :00 No [id number] 22U inject 22 Units under the skin every morning for 90 days. [facility] insulin NPH 100 unit/mL injection 10-05 00:00: 00 01-04 04:59 :00 No [id number] 18U inject 18 Units under the skin every evening for 90 days. [facility] insulin glargine (LANTUS U-100) injection 32 Units 10-04 23:56: 00 10-05 14:57 :15 No 32U 32 Units, Subcutaneo us, Q24H, First dose (after last modificati on) on Sat10/04/22 at 1756, Until Discontinu ed, Routine [facility] insulin lispro (human) (HumaLOG U-100) injection 10 Units 10-04 23:00: 00 10-05 14:57 :15 No 10U 10 Units, Subcutaneo us, TID MEALS, First dose (after last modificati on) on Sat10/04/22 at 1700, Until Discontinu ed, Routine [facility] Sliding Scale Insulin - lispro (humaLOG) + Fsbg Testing 10-04 22:00: 00 10-05 16:39 :57 No Subcutaneo us, Q4H, First dose (after last modificati on) on Sat10/04/22 at 1600, Until Discontinu ed, Routine [facility] NaCl 0.9% (NS) IV infusion 1,000 mL 10-04 14:15: 00 10-04 22:00 :00 No 1000mL at 100 mL/hr, IV Infusion, ONCE, 1 dose, On Sat10/04/22 at 0815, Routine [facility] insulin glargine (LANTUS U-100) injection 23 Units 10-04 00:29: 00 10-04 19:51 :36 No .25U/kg /d 23 Units (rounded from 23.25 Units = 0.25 Units/kg/d ay ?93 kg), Subcutaneo us, Q24H, First dose on Sat10/03/22 at 1829, Until Discontinu ed, Routine [facility] insulin glargine 100 unit/mL injection 10-04 00:00: 00 10-05 00:00 :00 No [id number] 23U inject 23 Units under the skin at bedtime. [facility] metoprolol succinate XL (TOPROL XL) tablet 25 mg 10-03 15:00: 00 Yes 25mg 25 mg, Oral, DAILY, First dose (after last modificati on) on Sat10/03/22 at 0900, Until Discontinu ed, Routine [facility] atorvastati n (LIPITOR) tablet 40 mg 10-03 15:00: 00 Yes 40mg 40 mg, Oral, DAILY, First dose on Sat10/03/22 at 0900, Until Discontinu ed, Routine [facility] aspirin EC tablet 81 mg 10-03 15:00: 00 Yes 81mg 81 mg, Oral, DAILY, First dose on Sat10/03/22 at 0900, Until Discontinu ed, [facility] lispro (human) (HumaLOG U-100) injection 8 Units 10-03 14:00: 00 10-04 19:52 :16 No .25U/kg /d 8 Units (rounded from 7.75 Units = 0.25 Units/kg/d ay ?93 kg), Subcutaneo us, TID MEALS, First dose on Sat10/03/22 at 0800, Until Discontinu ed, Routine [facility] NaCl 0.9% (NS) bolus infusion 500 mL 10-03 11:00: 00 10-03 14:00 :00 No 500mL at 125 mL/hr, 500 mL, IV Piggyback, ONCE, 1 dose, On Sat10/03/22 at 0500, Routine [facility] heparin (porcine) injection 5,000 Units 10-03 02:00: 00 Yes 5000U 5,000 Units, Subcutaneo us, Q12H, First dose on Sat10/02/22 at 2000, Until Discontinu ed, Routine [facility] Sliding Scale Insulin - lispro (humaLOG) + Fsbg Testing 10-03 02:00: 00 10-04 19:53 :01 No Subcutaneo us, Q4H, First dose on Sat10/02/22 at 2000, Until Discontinu ed, Routine [facility] glucagon (GLUCAGEN DIAGNOSTIC KIT) injection 1 mg 10-03 00:13: 27 Yes 1mg 1 mg, Intramuscu lar, PRN, Starting on Sat10/02/22 at 1813, Until Discontinu ed, JOSE, Blood Glucose < or = 70 mg/dL and patient is NPO, unable to swallow or has mental changes. [facility] dextrose 50 % in water (D50W) injection 25 mL 10-03 00:13: 27 Yes 25mL 25 mL, Slow IV Push, PRN, Starting on Sat10/02/22 at 1813, Until Discontinu ed, JOSE, Blood Glucose < or = 70 mg/dL and patient is NPO, unable to swallow or has mental status changes. [facility] furosemide 40 mg tablet 10-03 00:00: [address] [facility] lidocaine 1% (PF) (XYLOCAINE) injection 5 mL 10-02 22:30: 00 10-02 22:45 :00 No 5mL 5 mL, Subcutaneo us, ONCE, 1 dose, On Sat10/02/22 at 1630, Routine [facility] NaCl 0.9% (NS) injection 10 mL 10-02 22:24: 58 Yes 10mL 10 mL, Slow IV Push, PRN, Starting on Sat10/02/22 at 1624, Until Discontinu ed, Routine, line maintenanc e [facility] lidocaine 1% (PF) (XYLOCAINE) injection 5 mL 10-02 21:57: 16 Yes 5mL 5 mL, Subcutaneo us, PRN, Starting on Sat10/02/22 at 1557, Until Discontinu ed, Routine, Local anesthesia [facility] D5W 0.45% NaCl (1/2NS) 1 L + KCL 20 mEq 10-02 21:27: 52 10-04 15:31 :30 No IV Infusion, at 200 mL/hr, PRN - SEE INSTRUCTIO NS, Starting on Sat10/02/22 at 1527, Until Sat10/04/22 at 0931, JOSE, Blood glucose control [facility] NaCl 0.9% (NS) IV infusion 1,000 mL 10-02 16:00: 00 10-02 21:35 :48 No 1000mL at 250 mL/hr, 1,000 mL, IV Infusion, CONTINUOUS , Starting on Sat10/02/22 at 1000, Until Sat10/02/22 at 1535, JOSE [facility] NaCl 0.9% (NS) bolus infusion 1,000 mL 10-02 14:00: 00 10-03 13:00 :00 No 1000mL at 999 mL/hr, 1,000 mL, IV Infusion, ONCE, 1 dose, On Sat10/02/22 at 0800, STAT [facility] insulin regular human (HUMULIN R) injection 9 Units 10-02 14:00: 00 10-02 13:11 :00 No 9U 9 Units, Slow IV Push, ONCE, 1 dose, On Sat10/02/22 at 0800, STAT
In dication for insulin: Hyperglyce yeimy [facility] cefdinir 300 mg capsule 09-26 00:00: 00 10-05 00:00 :00 No [id number] 300mg Take 1 capsule by mouth in the morning and 1 capsule in the evening. [facility] losartan 25 mg tablet 24 00:00: 00 Yes [id number] 25mg Take 1 tablet by mouth in the morning. [facility] isosorbide dinitrate 20 mg tablet 09-21 00:00: 00 Yes [id number] 20mg Take 1 tablet by mouth every 8 (eight) hours. [facility] metoprolol succinate XL 50 mg 24 hr tablet 09-21 00:00: 00 Yes [id number] 50mg Take 1 tablet by mouth in the morning. [facility] hydrALAZINE 50 mg tablet 09-21 00:00: 10-05 00:00 :00 No [id number] 50mg Take 1 tablet by mouth every 8 (eight) hours. [facility] dapaglifloz in (FARXIGA) 10 mg tablet 09-21 00:00: 00 10-05 00:00 :00 No [id number] 10mg Take 1 tablet by mouth in the morning. [facility] isosorbide dinitrate 20 mg tablet 09-21 00:00: 00 09-21 00:00 :00 No 10mg Take 0.5 tablets by mouth every 8 (eight) hours. [facility] metoprolol succinate XL 50 mg 24 hr tablet 09-21 00:00: 00 09-21 00:00 :00 No 25mg Take 0.5 tablets by mouth in the morning. [facility] pioglitazon e (ACTOS) 15 mg tablet 09-18 00:00: 00 09-22 00:00 :00 No [id number] 15mg Take 1 tablet by mouth in the morning. [facility] aspirin 81 mg EC tablet 09-09 00:00: 00 Yes [id number] 81mg Take 1 tablet by mouth in the morning. [facility] KCL (KLOR-CON M20) tablet 40 mEq 09-08 15:15: 00 09-08 16:52 :00 No 40meq 40 mEq, Oral, ONCE, 1 dose, On 09/08/22 at 0915, Routine [facility] bumetanide 2 mg tablet 09-08 00:00: 00 Yes [id number] 4mg Take 2 tablets by mouth every morning and evening. [facility] isosorbide dinitrate 10 mg tablet 09-08 00:00: 00 09-21 00:00 :00 No [id number] 10mg Take 1 tablet by mouth every 8 (eight) hours. [facility] bumetanide (BUMEX) tablet 4 mg 09-07 23:00: 00 Yes 4mg 4 mg, Oral, QAM+PM, First dose on Sat09/07/22 at 1700, Until Discontinu ed, Routine [facility] furosemide (LASIX) injection 40 mg 09-07 02:00: 00 09-07 19:30 :50 No 40mg 40 mg, Slow IV Push, Q12H, First dose on Sat09/06/22 at 2000, Until Discontinu ed, Routine [facility] hydrALAZINE (APRESOLINE ) tablet 25 mg 09-06 20:00: 00 Yes 25mg 25 mg, Oral, Q8H, First dose (after last modificati on) on Sat09/06/22 at 1400, Until Discontinu ed, Routine [facility] isosorbide dinitrate (ISORDIL) tablet 10 mg 09-06 15:30: 00 Yes 10mg 10 mg, Oral, Q8H, First dose on Sat09/06/22 at 0930, Until Discontinu ed, Routine [facility] furosemide (LASIX) injection 40 mg 09-06 15:05: 00 09-06 15:11 :00 No 40mg 40 mg, Slow IV Push, ONCE, 1 dose, On Sat09/06/22 at 0915, Routine [facility] furosemide (LASIX) injection 40 mg 09-05 20:00: 00 09-05 20:48 :00 No 40mg 40 mg, Slow IV Push, ONCE, 1 dose, On Sat09/05/22 at 1400, Routine [facility] atorvastati n (LIPITOR) tablet 40 mg 09-05 03:00: 00 Yes 40mg 40 mg, Oral, QHS, First dose (after last modificati on) on Sat09/04/22 at 2100, Until Discontinu ed, Routine [facility] aspirin tablet 325 mg 09-04 20:36: 15 Yes 325mg 325 mg, Oral, PRE-PROCED URE ONCE, 1 dose, Starting on Sat09/04/22 at 1436, Until Discontinu ed, Routine, Surgery/Pr ocedure, CV Preprocedu re [facility] iodixanol (VISIPAQUE 320-100 mL) injection 09-04 20:14: 11 09-04 20:26 :27 No ONCE INTRA PROCEDURE, Starting on Sat09/04/22 at 1414, Until Sat09/04/22 at 1426, Routine, CV Intraproce dure [facility] heparin 1,000 unit/mL injection 09-04 19:19: 34 09-04 20:26 :27 No ONCE INTRA PROCEDURE, Starting on Sat09/04/22 at 1319, Until Sat09/04/22 at 1426, Routine, CV Intraproce dure [facility] lidocaine 1% (PF) (XYLOCAINE) injection 09-04 18:17: 31 09-04 20:26 :27 No ONCE INTRA PROCEDURE, Starting on Sat09/04/22 at 1217, Until Sat09/04/22 at 1426, Routine, CV Intraproce dure [facility] midazolam (VERSED) injection 09-04 18:07: 28 09-04 20:26 :27 No ONCE INTRA PROCEDURE, Starting on Sat09/04/22 at 1207, Until Tu09/04/22 at 1426, Routine, CV Intraproce dure [facility] FENTanyl PF (SUBLIMAZE (PF)) injection 09-04 18:07: 19 09-04 20:26 :27 No ONCE INTRA PROCEDURE, Starting on Sat09/04/22 at 1207, Until 09/04/22 at 1426, Routine, CV Intraproce dure [facility] KCL (KLOR-CON M20) tablet 20 mEq 09-04 13:07: 00 09-04 14:08 :00 No 20meq 20 mEq, Oral, ONCE, 1 dose, On Sat09/04/22 at 0715, Routine [facility] heparin (porcine) injection 5,000 Units 09-03 14:00: 00 Yes 5000U 5,000 Units, Subcutaneo us, Q12H, First dose on Sat09/03/22 at 0800, Until Discontinu ed, Routine [facility] magnesium sulfate in water 2 gram/50 mL (4 %) infusion 2 g 09-03 12:00: 00 09-03 12:50 :00 No 2g 2 g, IV Piggyback, Administer over 60 Minutes, ONCE, 1 dose, On Sat09/03/22 at 0600, [facility]ine [facility] KCL (KLOR-CON M20) tablet 20 mEq 09-03 12:00: 00 09-03 11:52 :00 No 20meq 20 mEq, Oral, ONCE, 1 dose, On Sat09/03/22 at 0600, Routine [facility] Sliding Scale Insulin - Lispro (HumaLOG) + Fsbg Testing 09-03 03:00: 00 Yes Subcutaneo us, TID MEALS+HS, First dose on Sat09/02/22 at 2100, Until Discontinu ed, Routine [facility] acetaminoph en (TYLENOL) tablet 650 mg 09-03 00:30: 01 Yes 650mg 650 mg, Oral, Q6HPRN, Starting on Sat09/02/22 at 1830, Until Discontinu ed, Routine, Pain (scale 1-3) [facility] magnesium sulfate in water 2 gram/50 mL (4 %) infusion 2 g 2021-09 16:00: 00 09-01 16:47 :00 No 2g 2 g, IV Piggyback, Administer over 60 Minutes, ONCE, 1 dose, On 09/01/22 at 1000, Routine [facility] KCL (KLOR-CON M20) tablet 40 mEq 2021-09 16:00: 00 09-01 15:47 :00 No 40meq 40 mEq, Oral, ONCE, 1 dose, On 09/01/22 at 1000, Routine [facility] aspirin EC tablet 81 mg 2021-09 15:00: 00 Yes 81mg 81 mg, Oral, DAILY, First dose on 09/01/22 at 0900, Until Discontinu ed, Routine [facility] atorvastati n (LIPITOR) tablet 40 mg 2021-09 15:00: 00 09-04 14:18 :09 No 40mg 40 mg, Oral, DAILY, First dose on Sat09/01/22 at 0900, Until Discontinu ed, Routine [facility] furosemide (LASIX) injection 40 mg 2021-09 02:00: 00 Yes 40mg 40 mg, Slow IV Push, Q12H, First dose on Sat08/31/22 at 2000, Until Discontinu ed, Routine [facility] sulfur hexafluorid e microsphr (LUMASON) injection 5 mL 2021-09 21:45: 00 08-31 21:45 :00 No [id number] 5mL 5 mL, Intravenou s, ONCE, 1 dose, On Sat08/31/22 at 1545, Routine
philosophy faculty member approving Restricted medication : NOEL MORELAND [facility] hydrALAZINE (APRESOLINE ) tablet 25 mg 2021-09 20:00: 00 Yes 25mg 25 mg, Oral, TID, First dose on Sat08/31/22 at 1400, Until Discontinu ed, Routine [facility] heparin (porcine) injection 5,000 Units 2021-09 20:00: 00 09-03 00:32 :34 No 5000U 5,000 Units, Subcutaneo us, Q8H, First dose on Sat08/31/22 at 1400, Until Discontinu ed, Routine [facility] Sliding Scale Insulin - Lispro (HumaLOG) + Fsbg Testing 2021-09 18:00: 00 09-03 00:32 :34 No Subcutaneo us, TID MEALS+HS, First dose on Sat08/31/22 at 1200, Until Discontinu ed, Routine [facility] metoprolol succinate XL (TOPROL XL) tablet 25 mg 2021-09 17:30: 00 Yes 25mg 25 mg, Oral, DAILY, First dose on Sat08/31/22 at 1130, Until Discontinu ed, Routine [facility] glucagon (GLUCAGEN DIAGNOSTIC KIT) injection 1 mg 2021-09 17:13: 11 Yes 1mg 1 mg, Intramuscu lar, PRN, Starting on Sat08/31/22 at 1113, Until Discontinu ed, JOSE, Blood Glucose < or = 70 mg/dL and patient is unable to swallow or has mental changes. [facility] dextrose 50 % in water (D50W) injection 25 mL 2021-09 17:13: 11 Yes 25mL 25 mL, Slow IV Push, PRN, Starting on Sat08/31/22 at 1113, Until Discontinu ed, JOSE, Blood Glucose < or = 70 mg/dL and patient is unable to swallow or has mental status changes. [facility] furosemide (LASIX) injection 80 mg 2021-09 12:45: 00 08-31 12:46 :00 No 80mg 80 mg, IV Push, ONCE, 1 dose, On Sat08/31/22 at 0645, JOSE [facility] metFORMIN 500 mg tablet 2021-09 11:16: 10 08-31 00:00 :00 No 500mg Take 500 mg by mouth in the morning and 500 mg in the evening. Take with meals. [facility] doxycycline hyclate 100 mg capsule 2021-09 00:00: 00 08-31 00:00 :00 No [id number] 100mg Take 1 capsule by mouth every 12 (twelve) hours. [facility] predniSONE 20 mg tablet 2021-09 00:00: 00 08-31 00:00 :00 No [id number] 40mg Take 2 tablets by mouth in the morning. [facility] atorvastati n 40 mg tablet 2021-09- 00:00: 00 12-27 00:00 :00 No [id number] 40mg Take 1 tablet by mouth in the morning. [facility] hydrALAZINE 25 mg tablet 2021-09 0-04 00:00: 00 09-21 00:00 :00 No [id number] 25mg Take 1 tablet by mouth in the morning and 1 tablet at noon and 1 tablet in the evening. [facility] metoprolol succinate XL 25 mg 24 hr tablet 2021-09 0- 00:00: 00 09-21 00:00 :00 No [id number] 25mg Take 1 tablet by mouth in the morning. [facility] furosemide 40 mg tablet 2021-09 0- 00:00: 00 09-08 00:00 :00 No [id number] 40mg Take 1 tablet by mouth in the morning. [facility] aspirin 81 mg EC tablet 2021-09 0 00:00: 00 08-31 00:00 :00 No [id number] 81mg Take 1 tablet by mouth in the morning. [facility] metFORMIN 500 mg tablet 05-10 10:53: 35 Yes 500mg Take 500 mg by mouth in the morning and 500 mg in the evening. Take with meals. [facility] hydrALAZINE 10 mg tablet 04-16 00:00: 00 06-05 00:00 :00 No [id number] 10mg Take 1 tablet by mouth in the morning and 1 tablet at noon and 1 tablet in the evening. [facility] furosemide 40 mg tablet 04-16 00:00: 00 06-05 00:00 :00 No 40mg Take 1 tablet by mouth in the morning. [facility] Immunizations Ordered Immunization Name Filled Immunization Name Date Status Comments Source [facility] 2022-03-03 00:00:00 Completed [facility] Remdes[facility] 2022-03-03 00:00:00 Completed [facility] 2022-03-03 00:00:00 Completed [facility] 2022-03-03 00:00:00 Completed [facility] 2022-03-03 00:00:00 Completed [facility] 2022-03-03 00:00:00 Completed [facility] 2022-03-03 00:00:00 Completed [facility] 2022-03-03 00:00:00 Completed [facility] 2022-03-03 00:00:00 Completed [facility] 2022-03-03 00:00:00 Completed [facility] 2022-03-03 00:00:00 Completed [facility] 2022-03-03 00:00:00 Completed [facility] 2022-03-03 00:00:00 Completed [facility] 2022-03-03 00:00:00 Completed [facility] 2022-03-03 00:00:00 Completed [facility] 2022-03-03 00:00:00 Completed [facility] 2022-03-03 00:00:00 Completed [facility] 2022-03-03 00:00:00 Completed [facility] 2022-03-03 00:00:00 Completed [facility] 2022-03-03 00:00:00 Completed [facility] 2022-03-03 00:00:00 Completed [facility] 2022-03-03 00:00:00 Completed [facility] 2022-03-03 00:00:00 Completed [facility] 2022-03-03 00:00:00 Completed [facility] 2022-03-03 00:00:00 Completed [facility] 2022-03-03 00:00:00 Completed [facility] 2022-03-03 00:00:00 Completed [facility] 2022-03-03 00:00:00 Completed [facility] 2022-03-03 00:00:00 Completed [facility] 2022-03-03 00:00:00 Completed [facility] 2022-03-03 00:00:00 Completed [facility] 2022-03-03 00:00:00 Completed [facility] 2022-03-03 00:00:00 Completed [facility] 2022-03-03 00:00:00 Completed [facility] 2022-03-03 00:00:00 Completed [facility] 2022-03-03 00:00:00 Completed [facility] 2022-03-03 00:00:00 Completed [facility] 2022-03-03 00:00:00 Completed [facility] 2022-03-03 00:00:00 Completed [facility] 2022-03-03 00:00:00 Completed [facility] 2022-03-03 00:00:00 Completed [facility] 2022-03-03 00:00:00 Completed [facility] 2022-03-03 00:00:00 Completed [facility] 2022-03-03 00:00:00 Completed [facility] 2022-03-03 00:00:00 Completed [facility] 2022-03-03 00:00:00 Completed [facility] 2022-03-03 00:00:00 Completed [facility] 2022-03-03 00:00:00 Completed [facility] 2022-03-03 00:00:00 Completed [facility] 2022-03-03 00:00:00 Completed [facility] 2022-03-03 00:00:00 Completed [facility] 2022-03-03 00:00:00 Completed [facility] 2022-03-03 00:00:00 Completed [facility] 2022-03-03 00:00:00 Completed [facility] 2022-03-03 00:00:00 Completed [facility] 2022-03-03 00:00:00 Completed [facility] 2022-03-03 00:00:00 Completed [facility] 2022-03-03 00:00:00 Completed [facility] 2022-03-03 00:00:00 Completed [facility] 2022-03-03 00:00:00 Completed [facility] 2022-03-03 00:00:00 Completed [facility] 2022-03-03 00:00:00 Completed [facility] 2022-03-03 00:00:00 Completed [facility] 2022-03-03 00:00:00 Completed [facility] 2022-03-03 00:00:00 Completed [facility] 2022-03-03 00:00:00 Completed [facility] 2022-03-03 00:00:00 Completed [facility] 2022-03-03 00:00:00 Completed [facility] 2022-03-03 00:00:00 Completed [facility] 2022-03-03 00:00:00 Completed [facility] 2022-03-03 00:00:00 Completed [facility] 2022-03-03 00:00:00 Completed [facility] 2022-03-03 00:00:00 Completed [facility] 2022-03-03 00:00:00 Completed [facility] 2022-03-03 00:00:00 Completed [facility] 2022-03-03 00:00:00 Completed [facility] 2022-03-03 00:00:00 Completed [facility] 2022-03-03 00:00:00 Completed [facility] 2022-03-03 00:00:00 Completed [facility] 2022-03-03 00:00:00 Completed [facility] 2022-03-03 00:00:00 Completed [facility] 2022-03-03 00:00:00 Completed [facility] 2022-03-02 00:00:00 Completed [facility] 2022-03-02 00:00:00 Completed [facility] 2022-03-02 00:00:00 Completed [facility] 2022-03-02 00:00:00 Completed [facility] 2022-03-02 00:00:00 Completed [facility] 2022-03-02 00:00:00 Completed [facility] 2022-03-02 00:00:00 Completed [facility] 2022-03-02 00:00:00 Completed [facility] 2022-03-02 00:00:00 Completed [facility] 2022-03-02 00:00:00 Completed [facility] 2022-03-02 00:00:00 Completed [facility] 2022-03-02 00:00:00 Completed [facility] 2022-03-02 00:00:00 Completed [facility] 2022-03-02 00:00:00 Completed [facility] 2022-03-02 00:00:00 Completed [facility] 2022-03-02 00:00:00 Completed [facility] 2022-03-02 00:00:00 Completed [facility] 2022-03-02 00:00:00 Completed [facility] 2022-03-02 00:00:00 Completed [facility] 2022-03-02 00:00:00 Completed [facility] 2022-03-02 00:00:00 Completed [facility] 2022-03-02 00:00:00 Completed [facility] 2022-03-02 00:00:00 Completed [facility] 2022-03-02 00:00:00 Completed [facility] 2022-03-02 00:00:00 Completed [facility] 2022-03-02 00:00:00 Completed [facility] 2022-03-02 00:00:00 Completed [facility] 2022-03-02 00:00:00 Completed [facility] 2022-03-02 00:00:00 Completed [facility] 2022-03-02 00:00:00 Completed [facility] 2022-03-02 00:00:00 Completed [facility] 2022-03-02 00:00:00 Completed [facility] 2022-03-02 00:00:00 Completed [facility] 2022-03-02 00:00:00 Completed [facility] 2022-03-02 00:00:00 Completed [facility] 2022-03-02 00:00:00 Completed [facility] 2022-03-02 00:00:00 Completed [facility] 2022-03-02 00:00:00 Completed [facility] 2022-03-02 00:00:00 Completed [facility] 2022-03-02 00:00:00 Completed [facility] 2022-03-02 00:00:00 Completed [facility] 2022-03-02 00:00:00 Completed [facility] 2022-03-02 00:00:00 Completed [facility] 2022-03-02 00:00:00 Completed [facility] 2022-03-02 00:00:00 Completed [facility] 2022-03-02 00:00:00 Completed [facility] 2022-03-02 00:00:00 Completed [facility] 2022-03-02 00:00:00 Completed [facility] 2022-03-02 00:00:00 Completed [facility] 2022-03-02 00:00:00 Completed [facility] 2022-03-02 00:00:00 Completed [facility] 2022-03-02 00:00:00 Completed [facility] 2022-03-02 00:00:00 Completed [facility] 2022-03-02 00:00:00 Completed [facility] 2022-03-02 00:00:00 Completed [facility] 2022-03-02 00:00:00 Completed [facility] 2022-03-02 00:00:00 Completed [facility] 2022-03-02 00:00:00 Completed [facility] 2022-03-02 00:00:00 Completed [facility] 2022-03-02 00:00:00 Completed [facility] 2022-03-02 00:00:00 Completed [facility] 2022-03-02 00:00:00 Completed [facility] 2022-03-02 00:00:00 Completed [facility] 2022-03-02 00:00:00 Completed [facility] 2022-03-02 00:00:00 Completed [facility] 2022-03-02 00:00:00 Completed [facility] 2022-03-02 00:00:00 Completed [facility] 2022-03-02 00:00:00 Completed [facility] 2022-03-02 00:00:00 Completed [facility] 2022-03-02 00:00:00 Completed [facility] 2022-03-02 00:00:00 Completed [facility] 2022-03-02 00:00:00 Completed [facility] 2022-03-02 00:00:00 Completed [facility] 2022-03-02 00:00:00 Completed [facility] 2022-03-02 00:00:00 Completed [facility] 2022-03-02 00:00:00 Completed [facility] 2022-03-02 00:00:00 Completed [facility] 2022-03-02 00:00:00 Completed [facility] 2022-03-02 00:00:00 Completed [facility] 2022-03-02 00:00:00 Completed [facility] 2022-03-02 00:00:00 Completed [facility] 2022-03-02 00:00:00 Completed [facility] 2022-03-01 00:00:00 Completed [facility] 2022-03-01 00:00:00 Completed [facility] 2022-03-01 00:00:00 Completed [facility] 2022-03-01 00:00:00 Completed [facility] 2022-03-01 00:00:00 Completed [facility] 2022-03-01 00:00:00 Completed [facility] 2022-03-01 00:00:00 Completed [facility] 2022-03-01 00:00:00 Completed [facility] 2022-03-01 00:00:00 Completed [facility] 2022-03-01 00:00:00 Completed [facility] 2022-03-01 00:00:00 Completed [facility] 2022-03-01 00:00:00 Completed [facility] 2022-03-01 00:00:00 Completed [facility] 2022-03-01 00:00:00 Completed [facility] 2022-03-01 00:00:00 Completed [facility] 2022-03-01 00:00:00 Completed [facility] 2022-03-01 00:00:00 Completed [facility] 2022-03-01 00:00:00 Completed [facility] 2022-03-01 00:00:00 Completed [facility] 2022-03-01 00:00:00 Completed [facility] 2022-03-01 00:00:00 Completed [facility] 2022-03-01 00:00:00 Completed [facility] 2022-03-01 00:00:00 Completed [facility] 2022-03-01 00:00:00 Completed [facility] 2022-03-01 00:00:00 Completed [facility] 2022-03-01 00:00:00 Completed [facility] 2022-03-01 00:00:00 Completed [facility] 2022-03-01 00:00:00 Completed [facility] 2022-03-01 00:00:00 Completed [facility] 2022-03-01 00:00:00 Completed [facility] 2022-03-01 00:00:00 Completed [facility] 2022-03-01 00:00:00 Completed [facility] 2022-03-01 00:00:00 Completed [facility] 2022-03-01 00:00:00 Completed [facility] 2022-03-01 00:00:00 Completed [facility] 2022-03-01 00:00:00 Completed [facility] 2022-03-01 00:00:00 Completed [facility] 2022-03-01 00:00:00 Completed [facility] 2022-03-01 00:00:00 Completed [facility] 2022-03-01 00:00:00 Completed [facility] 2022-03-01 00:00:00 Completed [facility] 2022-03-01 00:00:00 Completed [facility] 2022-03-01 00:00:00 Completed [facility] 2022-03-01 00:00:00 Completed [facility] 2022-03-01 00:00:00 Completed [facility] 2022-03-01 00:00:00 Completed [facility] 2022-03-01 00:00:00 Completed [facility] 2022-03-01 00:00:00 Completed [facility] 2022-03-01 00:00:00 Completed [facility] 2022-03-01 00:00:00 Completed [facility] 2022-03-01 00:00:00 Completed [facility] 2022-03-01 00:00:00 Completed [facility] 2022-03-01 00:00:00 Completed [facility] 2022-03-01 00:00:00 Completed [facility] 2022-03-01 00:00:00 Completed [facility] 2022-03-01 00:00:00 Completed [facility] 2022-03-01 00:00:00 Completed [facility] 2022-03-01 00:00:00 Completed [facility] 2022-03-01 00:00:00 Completed [facility] 2022-03-01 00:00:00 Completed [facility] 2022-03-01 00:00:00 Completed [facility] 2022-03-01 00:00:00 Completed [facility] 2022-03-01 00:00:00 Completed [facility] 2022-03-01 00:00:00 Completed [facility] 2022-03-01 00:00:00 Completed [facility] 2022-03-01 00:00:00 Completed [facility] 2022-03-01 00:00:00 Completed [facility] 2022-03-01 00:00:00 Completed [facility] 2022-03-01 00:00:00 Completed [facility] 2022-03-01 00:00:00 Completed [facility] 2022-03-01 00:00:00 Completed [facility] 2022-03-01 00:00:00 Completed [facility] 2022-03-01 00:00:00 Completed [facility] 2022-03-01 00:00:00 Completed [facility] 2022-03-01 00:00:00 Completed [facility] 2022-03-01 00:00:00 Completed [facility] 2022-03-01 00:00:00 Completed [facility] 2022-03-01 00:00:00 Completed [facility] 2022-03-01 00:00:00 Completed [facility] 2022-03-01 00:00:00 Completed [facility] 2022-03-01 00:00:00 Completed [facility] 2022-03-01 00:00:00 Completed [facility] 2022-02-28 00:00:00 Completed [facility] 2022-02-28 00:00:00 Completed [facility] 2022-02-28 00:00:00 Completed [facility] 2022-02-28 00:00:00 Completed [facility] 2022-02-28 00:00:00 Completed [facility] 2022-02-28 00:00:00 Completed [facility] 2022-02-28 00:00:00 Completed [facility] 2022-02-28 00:00:00 Completed [facility] 2022-02-28 00:00:00 Completed [facility] 2022-02-28 00:00:00 Completed [facility] 2022-02-28 00:00:00 Completed [facility] 2022-02-28 00:00:00 Completed [facility] 2022-02-28 00:00:00 Completed [facility] 2022-02-28 00:00:00 Completed [facility] 2022-02-28 00:00:00 Completed [facility] 2022-02-28 00:00:00 Completed [facility] 2022-02-28 00:00:00 Completed [facility] 2022-02-28 00:00:00 Completed [facility] 2022-02-28 00:00:00 Completed [facility] 2022-02-28 00:00:00 Completed [facility] 2022-02-28 00:00:00 Completed [facility] 2022-02-28 00:00:00 Completed [facility] 2022-02-28 00:00:00 Completed [facility] 2022-02-28 00:00:00 Completed [facility] 2022-02-28 00:00:00 Completed [facility] 2022-02-28 00:00:00 Completed [facility] 2022-02-28 00:00:00 Completed [facility] 2022-02-28 00:00:00 Completed [facility] 2022-02-28 00:00:00 Completed [facility] 2022-02-28 00:00:00 Completed [facility] 2022-02-28 00:00:00 Completed [facility] 2022-02-28 00:00:00 Completed [facility] 2022-02-28 00:00:00 Completed [facility] 2022-02-28 00:00:00 Completed [facility] 2022-02-28 00:00:00 Completed [facility] 2022-02-28 00:00:00 Completed [facility] 2022-02-28 00:00:00 Completed [facility] 2022-02-28 00:00:00 Completed [facility] 2022-02-28 00:00:00 Completed [facility] 2022-02-28 00:00:00 Completed [facility] 2022-02-28 00:00:00 Completed [facility] 2022-02-28 00:00:00 Completed [facility] 2022-02-28 00:00:00 Completed [facility] 2022-02-28 00:00:00 Completed [facility] 2022-02-28 00:00:00 Completed [facility] 2022-02-28 00:00:00 Completed [facility] 2022-02-28 00:00:00 Completed [facility] 2022-02-28 00:00:00 Completed [facility] 2022-02-28 00:00:00 Completed [facility] 2022-02-28 00:00:00 Completed [facility] 2022-02-28 00:00:00 Completed [facility] 2022-02-28 00:00:00 Completed [facility] 2022-02-28 00:00:00 Completed [facility] 2022-02-28 00:00:00 Completed [facility] 2022-02-28 00:00:00 Completed [facility] 2022-02-28 00:00:00 Completed [facility] 2022-02-28 00:00:00 Completed [facility] 2022-02-28 00:00:00 Completed [facility] 2022-02-28 00:00:00 Completed [facility] 2022-02-28 00:00:00 Completed [facility] 2022-02-28 00:00:00 Completed [facility] 2022-02-28 00:00:00 Completed [facility] 2022-02-28 00:00:00 Completed [facility] 2022-02-28 00:00:00 Completed [facility] 2022-02-28 00:00:00 Completed [facility] 2022-02-28 00:00:00 Completed [facility] 2022-02-28 00:00:00 Completed [facility] 2022-02-28 00:00:00 Completed [facility] 2022-02-28 00:00:00 Completed [facility] 2022-02-28 00:00:00 Completed [facility] 2022-02-28 00:00:00 Completed [facility] 2022-02-28 00:00:00 Completed [facility] 2022-02-28 00:00:00 Completed [facility] 2022-02-28 00:00:00 Completed [facility] 2022-02-28 00:00:00 Completed [facility] 2022-02-28 00:00:00 Completed [facility] 2022-02-28 00:00:00 Completed [facility] 2022-02-28 00:00:00 Completed [facility] 2022-02-28 00:00:00 Completed [facility] 2022-02-28 00:00:00 Completed [facility] 2022-02-28 00:00:00 Completed [facility] 2022-02-28 00:00:00 Completed [facility] 2022-02-27 00:00:00 Completed [facility] 2022-02-27 00:00:00 Completed [facility] 2022-02-27 00:00:00 Completed [facility] 2022-02-27 00:00:00 Completed [facility] 2022-02-27 00:00:00 Completed [facility] 2022-02-27 00:00:00 Completed [facility] 2022-02-27 00:00:00 Completed [facility] 2022-02-27 00:00:00 Completed [facility] 2022-02-27 00:00:00 Completed [facility] 2022-02-27 00:00:00 Completed [facility] 2022-02-27 00:00:00 Completed [facility] 2022-02-27 00:00:00 Completed [facility] 2022-02-27 00:00:00 Completed [facility] 2022-02-27 00:00:00 Completed [facility] 2022-02-27 00:00:00 Completed [facility] 2022-02-27 00:00:00 Completed [facility] 2022-02-27 00:00:00 Completed [facility] 2022-02-27 00:00:00 Completed [facility] 2022-02-27 00:00:00 Completed [facility] 2022-02-27 00:00:00 Completed [facility] 2022-02-27 00:00:00 Completed [facility] 2022-02-27 00:00:00 Completed [facility] 2022-02-27 00:00:00 Completed [facility] 2022-02-27 00:00:00 Completed [facility] 2022-02-27 00:00:00 Completed [facility] 2022-02-27 00:00:00 Completed [facility] 2022-02-27 00:00:00 Completed [facility] 2022-02-27 00:00:00 Completed [facility] 2022-02-27 00:00:00 Completed [facility] 2022-02-27 00:00:00 Completed [facility] 2022-02-27 00:00:00 Completed [facility] 2022-02-27 00:00:00 Completed [facility] 2022-02-27 00:00:00 Completed [facility] 2022-02-27 00:00:00 Completed [facility] 2022-02-27 00:00:00 Completed [facility] 2022-02-27 00:00:00 Completed [facility] 2022-02-27 00:00:00 Completed [facility] 2022-02-27 00:00:00 Completed [facility] 2022-02-27 00:00:00 Completed [facility] 2022-02-27 00:00:00 Completed [facility] 2022-02-27 00:00:00 Completed [facility] 2022-02-27 00:00:00 Completed [facility] 2022-02-27 00:00:00 Completed [facility] 2022-02-27 00:00:00 Completed [facility] 2022-02-27 00:00:00 Completed [facility] 2022-02-27 00:00:00 Completed [facility] 2022-02-27 00:00:00 Completed [facility] 2022-02-27 00:00:00 Completed [facility] 2022-02-27 00:00:00 Completed [facility] 2022-02-27 00:00:00 Completed [facility] 2022-02-27 00:00:00 Completed [facility] 2022-02-27 00:00:00 Completed [facility] 2022-02-27 00:00:00 Completed [facility] 2022-02-27 00:00:00 Completed [facility] 2022-02-27 00:00:00 Completed [facility] 2022-02-27 00:00:00 Completed [facility] 2022-02-27 00:00:00 Completed [facility] 2022-02-27 00:00:00 Completed [facility] 2022-02-27 00:00:00 Completed [facility] 2022-02-27 00:00:00 Completed [facility] 2022-02-27 00:00:00 Completed [facility] 2022-02-27 00:00:00 Completed [facility] 2022-02-27 00:00:00 Completed [facility] 2022-02-27 00:00:00 Completed [facility] 2022-02-27 00:00:00 Completed [facility] 2022-02-27 00:00:00 Completed [facility] 2022-02-27 00:00:00 Completed [facility] 2022-02-27 00:00:00 Completed [facility] 2022-02-27 00:00:00 Completed [facility] 2022-02-27 00:00:00 Completed [facility] 2022-02-27 00:00:00 Completed [facility] 2022-02-27 00:00:00 Completed [facility] 2022-02-27 00:00:00 Completed [facility] 2022-02-27 00:00:00 Completed [facility] 2022-02-27 00:00:00 Completed [facility] 2022-02-27 00:00:00 Completed [facility] 2022-02-27 00:00:00 Completed [facility] 2022-02-27 00:00:00 Completed [facility] 2022-02-27 00:00:00 Completed [facility] 2022-02-27 00:00:00 Completed [facility] 2022-02-27 00:00:00 Completed [facility] 2022-02-27 00:00:00 Completed [facility] Unknown Com[facility] Completed [facility] Unknown Completed [facility] Unknown Completed [facility] Unknown Com[facility] Unknown Com[facility] Com[facility] Com[facility] Com[facility] Com[facility] Com[facility] Com[facility] Com[facility] Com[facility] Com[facility] Com[facility] Unknown [facility]pleted [facility] Com[facility]pleted [facility] Com[facility] Com[facility] Com[facility] Com[facility] Com[facility] Com[facility]pleted [facility] Com[facility] Com[facility] Com[facility] Com[facility] Com[facility] Com[facility] Com[facility] Com[facility] Com[facility] Com[facility] Com[facility] Com[facility] Com[facility] Com[facility] Com[facility] Com[facility] Com[facility] Com[facility] Com[facility] Com[facility] Com[facility] Com[facility] Com[facility] Com[facility] Com[facility] Com[facility] Com[facility] Com[facility] Com[facility] Com[facility] Com[facility] Com[facility] Com[facility] Com[facility] Com[facility] Com[facility] Com[facility] Com[facility] Com[facility] Com[facility] Com[facility] Com[facility] Com[facility] Com[facility] Com[facility] Com[facility] Com[facility] Com[facility] Com[facility] Com[facility] Com[facility] Com[facility] Com[facility] Com[facility] Com[facility] Com[facility] Com[facility] Com[facility] Completed [facility] Com[facility] Com[facility] Com[facility] Com[facility] Com[facility] Com[facility] Com[facility] Completed [facility] Unknown Completed [facility] Unknown Completed [facility] Unknown Completed [facility] Unknown Completed [facility] Unknown [facility]pleted [facility] Unknown Completed [facility] Unknown Completed [facility] Unknown Completed [facility] Unknown [facility]pleted [facility] Unknown Completed [facility] Unknown [facility]pleted [facility] Unknown Completed [facility] Unknown Completed [facility] Unknown Completed [facility] Unknown [facility]pleted [facility] Unknown Completed [facility] Unknown Completed [facility] Unknown Completed [facility] Unknown Completed [facility] Unknown [facility]pleted [facility] Unknown Completed [facility] Unknown [facility]pleted [facility] Unknown Completed [facility] Unknown [facility]pleted [facility] Unknown Completed [facility] Unknown Completed [facility] Unknown Completed [facility] Unknown Completed [facility] Unknown [facility]pleted [facility] Unknown Completed [facility] Unknown [facility]pleted [facility] Unknown Completed [facility] Unknown [facility]pleted [facility] Unknown Com[facility] Com[facility] Com[facility] Com[facility] Com[facility] Com[facility] Com[facility] Com[facility] Completed [facility] Completed [facility] Unknown [facility]pleted [facility] Unknown Completed [facility] Unknown [facility]pleted [facility] Unknown Completed [facility] Unknown [facility]pleted [facility] Unknown Completed [facility] Unknown [facility]pleted [facility] Unknown [facility]pleted [facility] Unknown Completed [facility] Unknown Completed [facility] Unknown Completed [facility] Unknown Completed [facility] Unknown Completed [facility] Unknown [facility]pleted [facility] Unknown Completed [facility] Unknown Completed [facility] Unknown Completed [facility] Unknown [facility]pleted [facility] Unknown Com[facility] Com[facility] Com[facility] Completed [facility] Unknown Completed [facility] Unknown [facility]pleted [facility] Unknown Completed [facility] Unknown Completed [facility] Unknown [facility]pleted [facility] Unknown Completed [facility] Unknown Completed [facility] Com[facility] Unknown [facility] Com[facility] Com[facility] Com[facility] Com[facility] Com[facility] Com[facility] Com[facility] Com[facility] Com[facility] Com[facility] Com[facility] Com[facility] Unknown [facility]pleted [facility] Unknown Com[facility] Com[facility] Unknown [facility] Com[facility] Com[facility] Com[facility] Com[facility] Com[facility] Unknown Com[facility] Unknown [facility]pleted [facility] Unknown Com[facility] Unknown Com[facility] Com[facility] Unknown Com[facility] Unknown Com[facility] Unknown Com[facility] Unknown Completed [facility] Unknown [facility]pleted [facility] Unknown [facility]pleted [facility] Unknown Completed [facility] Unknown [facility]pleted [facility] Unknown [facility] Unknown Completed [facility] Unknown Com[facility] Com[facility] Com[facility] Com[facility] Com[facility] Com[facility] Com[facility] Unknown [facility] Com[facility] Unknown [facility] Unknown Com[facility] Unknown Completed [facility] Unknown Completed [facility] Unknown [facility] Unknown [facility] Unknown [facility] [facility] Unknown Com[facility] Unknown Com[facility] Unknown Completed [facility] Unknown Completed [facility] Com[facility] Com[facility] Com[facility] Com[facility] Com[facility] Com[facility] Com[facility] Com[facility] Com[facility] Com[facility] Com[facility] Com[facility] Com[facility] Com[facility] Com[facility] Com[facility] Com[facility] Com[facility] Com[facility] Com[facility] Com[facility] Com[facility] Com[facility] Com[facility] Com[facility] Com[facility] Com[facility] Com[facility] Com[facility] Com[facility] Com[facility] Com[facility] Com[facility] Com[facility] Com[facility] Com[facility] Com[facility] Com[facility] Com[facility] Com[facility] Com[facility] Com[facility] Com[facility] Com[facility] Com[facility] Com[facility] Com[facility] Com[facility] Com[facility] Com[facility] Com[facility] Com[facility] Com[facility] Com[facility] Com[facility] Com[facility] Com[facility] Com[facility] Com[facility] Com[facility] Com[facility] Com[facility] Com[facility] Com[facility] Com[facility] Com[facility] Com[facility] Com[facility] Com[facility] Com[facility] Com[facility] Com[facility] Com[facility] Com[facility] Com[facility] Com[facility] Com[facility] Com[facility] Com[facility] Com[facility] Com[facility] Com[facility] Com[facility] Com[facility] Com[facility] Com[facility] Com[facility] Com[facility] Com[facility] Com[facility] Com[facility] Com[facility] Com[facility] Com[facility] Com[facility] Com[facility] Com[facility] Com[facility] Com[facility] Com[facility] Com[facility] Com[facility] Com[facility] Com[facility] Com[facility] Com[facility] Com[facility] Com[facility] Com[facility] Com[facility] Com[facility] Com[facility] Com[facility] Com[facility] Com[facility] Com[facility] Com[facility] Com[facility] Com[facility] Com[facility] Com[facility] Com[facility] Com[facility] Com[facility] Com[facility] Unknown Com[facility] Unknown Com[facility] Unknown Com[facility] Unknown Com[facility] Com[facility] Unknown Com[facility] Com[facility] Com[facility] Com[facility] Unknown Com[facility] Unknown Com[facility] Unknown Com[facility] Unknown Com[facility] Unknown Com[facility] Unknown Com[facility] Unknown Com[facility] Unknown Com[facility] Unknown Com[facility] Unknown Com[facility] Com[facility] Com[facility] Com[facility] Unknown Com[facility] Unknown Com[facility] Unknown Com[facility] Unknown Com[facility] Com[facility] Unknown Com[facility] Unknown Com[facility] Unknown Com[facility] Unknown Com[facility] Unknown Com[facility] Unknown Com[facility] Unknown Com[facility] Unknown Com[facility] Unknown Com[facility] Unknown Com[facility] Unknown Com[facility] Unknown Com[facility] Unknown Com[facility] Unknown Com[facility] Unknown Com[facility] Unknown Com[facility] Unknown Com[facility] Unknown Com[facility] Unknown Com[facility] Unknown Com[facility] Unknown Com[facility] Com[facility] Unknown Com[facility] Unknown Com[facility] Com[facility] Unknown Com[facility] Com[facility] Unknown Com[facility] Unknown Com[facility] Unknown Com[facility] Unknown Com[facility] Unknown Com[facility] Unknown Com[facility] Unknown Com[facility] Unknown Com[facility] Unknown Com[facility] Unknown Com[facility] Unknown Com[facility] Unknown Com[facility] Unknown Com[facility] Unknown Com[facility] Unknown Com[facility] Unknown Com[facility] Unknown Com[facility] Unknown Com[facility] Unknown Com[facility] Unknown Com[facility] Unknown Com[facility] Unknown Com[facility] Unknown Com[facility] Unknown Com[facility] Unknown Com[facility] Unknown Com[facility] Unknown Com[facility] Unknown Com[facility] Unknown Com[facility] Unknown Com[facility] Unknown Com[facility] Unknown Com[facility] Unknown Com[facility] Unknown Com[facility] Unknown Com[facility] Unknown Com[facility] Unknown Com[facility] Unknown Com[facility] Unknown Com[facility] Unknown Com[facility] Unknown Com[facility] Unknown Com[facility] Unknown Com[facility] Unknown Com[facility] Unknown Com[facility] Unknown Com[facility] Unknown Com[facility] Unknown Com[facility] Unknown Com[facility] Unknown Com[facility] Unknown Com[facility] Unknown Com[facility] Unknown Com[facility] Unknown Com[facility] Unknown Com[facility] Unknown Com[facility] Unknown Com[facility] Unknown Com[facility] Unknown Com[facility] Unknown Completed [facility] Rem[facility] Unknown Completed [facility] Rem[facility] Unknown Completed [facility] Rem[facility] Unknown Completed [facility] Rem[facility] Unknown Completed [facility] Vital Signs Vital Name Observation Time Observation Value Comments S ource Systolic blood pressure 2024-03-17 16:10:00 149 mm[Hg] [facility] Diastolic blood pressure 2024-03-17 16:10:00 62 mm[Hg] [facility] Heart rate 2024-03-17 16:09:00 69 /min [facility] Body temperature 2024-03-17 16:09:00 36.61 Anaya [facility] Oxygen saturation in Arterial blood by Pulse oximetry 2024-03-17 16:09:00 94 /min [facility] Systolic blood pressure 2024-03-13 20:02:00 134 mm[Hg] [facility] Diastolic blood pressure 2024-03-13 20:02:00 55 mm[Hg] [facility] Heart rate 2024-03-13 20:02:00 71 /min [facility] Respiratory rate 2024-03-13 20:02:00 16 /min [facility] Body weight 2024-03-13 20:02:00 102.513 kg [facility] BMI 2024-03-13 20:02:00 29.00 kg/m2 [facility] Oxygen saturation in Arterial blood by Pulse oximetry 2024-03-13 20:02:00 91 /min [facility] Systolic blood pressure 2024-03-02 16:25:00 135 mm[Hg] [facility] Diastolic blood pressure 2024-03-02 16:25:00 57 mm[Hg] [facility] Heart rate 2024-03-02 16:25:00 60 /min [facility] Body temperature 2024-03-02 16:25:00 36.44 Anaya [facility] Respiratory rate 2024-03-02 16:25:00 18 /min [facility] Oxygen saturation in Arterial blood by Pulse oximetry 2024-03-02 16:25:00 94 /min [facility] Body weight 2024-03-01 08:20:00 101.969 kg [facility] BMI 2024-03-01 08:20:00 28.85 kg/m2 [facility] Body height 2024-02-29 03:40:00 188 cm [facility] Systolic blood pressure 2024-02-28 20:50:00 160 mm[Hg] [facility] Diastolic blood pressure 2024-02-28 20:50:00 55 mm[Hg] [facility] Body weight 2024-02-28 20:50:00 98.884 kg [facility] BMI 2024-02-28 20:50:00 28.76 kg/m2 [facility] Heart rate 2024-02-28 20:48:00 70 /min [facility] Body temperature 2024-02-28 20:48:00 36.94 Anaya [facility] Respiratory rate 2024-02-28 20:48:00 28 /min [facility] Oxygen saturation in Arterial blood by Pulse oximetry 2024-02-28 20:48:00 92 /min taken on thumb [facility] Systolic blood pressure 2024-01-31 20:38:00 185 mm[Hg] [facility] Diastolic blood pressure 2024-01-31 20:38:00 74 mm[Hg] [facility] Heart rate 2024-01-31 20:38:00 77 /min [facility] Oxygen saturation in Arterial blood by Pulse oximetry 2024-01-31 20:38:00 100 /min [facility] Body temperature 2024-01-31 20:35:00 37.11 Anaya [facility] Respiratory rate 2024-01-31 20:35:00 20 /min [facility] Body weight 2024-01-31 20:35:00 103.42 kg [facility] BMI 2024-01-31 20:35:00 30.08 kg/m2 [facility] Systolic blood pressure 2024-01-17 19:34:00 192 mm[Hg] [facility] Diastolic blood pressure 2024-01-17 19:34:00 81 mm[Hg] [facility] Heart rate 2024-01-17 19:34:00 83 /min [facility] Body temperature 2024-01-17 19:34:00 36.72 Anaya [facility] Oxygen saturation in Arterial blood by Pulse oximetry 2024-01-17 19:34:00 92 /min thumb used [facility] Body weight 2023-08-30 19:57:00 98.884 kg [facility] BMI 2023-08-30 19:57:00 27.99 kg/m2 [facility] Systolic blood pressure 2023-08-09 22:12:00 144 mm[Hg] [facility] Diastolic blood pressure 2023-08-09 22:12:00 70 mm[Hg] [facility] Heart rate 2023-08-09 22:12:00 82 /min [facility] Body weight 2023-08-09 22:10:00 98.884 kg [facility] BMI 2023-08-09 22:10:00 27.99 kg/m2 [facility] Oxygen saturation in Arterial blood by Pulse oximetry 2023-08-09 22:10:00 99 /min [facility] Systolic blood pressure 2023-08-02 21:32:00 148 mm[Hg] [facility] Diastolic blood pressure 2023-08-02 21:32:00 68 mm[Hg] [facility] Heart rate 2023-08-02 21:28:00 85 /min [facility] Oxygen saturation in Arterial blood by Pulse oximetry 2023-08-02 21:28:00 99 /min [facility] Systolic blood pressure 2023-07-05 21:13:00 135 mm[Hg] [facility] Diastolic blood pressure 2023-07-05 21:13:00 71 mm[Hg] [facility] Heart rate 2023-07-05 21:13:00 72 /min [facility] Body temperature 2023-07-05 21:13:00 36.28 Anaya [facility] Respiratory rate 2023-07-05 21:13:00 16 /min [facility] Oxygen saturation in Arterial blood by Pulse oximetry 2023-07-05 21:13:00 98 /min [facility] Systolic blood pressure 2023-05-24 20:07:00 139 mm[Hg] [facility] Diastolic blood pressure 2023-05-24 20:07:00 65 mm[Hg] [facility] Heart rate 2023-05-24 20:07:00 84 /min [facility] Body temperature 2023-05-24 20:07:00 37.11 Anaya [facility] Oxygen saturation in Arterial blood by Pulse oximetry 2023-05-24 20:07:00 97 /min [facility] Systolic blood pressure 2023-05-23 21:40:00 154 mm[Hg] [facility] Diastolic blood pressure 2023-05-23 21:40:00 73 mm[Hg] [facility] Heart rate 2023-05-23 21:40:00 86 /min [facility] Body temperature 2023-05-23 21:40:00 37.28 Anaya [facility] Respiratory rate 2023-05-23 21:40:00 16 /min [facility] Oxygen saturation in Arterial blood by Pulse oximetry 2023-05-23 21:40:00 99 /min [facility] Systolic blood pressure 2023-04-26 21:11:00 128 mm[Hg] [facility] Diastolic blood pressure 2023-04-26 21:11:00 66 mm[Hg] [facility] Heart rate 2023-04-26 21:11:00 84 /min [facility] Respiratory rate 2023-04-26 21:11:00 16 /min [facility] Body height 2023-04-26 21:11:00 188 cm [facility] Oxygen saturation in Arterial blood by Pulse oximetry 2023-04-26 21:11:00 100 /min [facility] Systolic blood pressure 2023-03-29 09:12:00 140 mm[Hg] [facility] Diastolic blood pressure 2023-03-29 09:12:00 56 mm[Hg] [facility] Heart rate 2023-03-29 09:12:00 70 /min [facility] Body temperature 2023-03-29 09:12:00 36.17 Anaya [facility] Respiratory rate 2023-03-29 09:12:00 18 /min [facility] Oxygen saturation in Arterial blood by Pulse oximetry 2023-03-29 09:12:00 100 /min [facility] Body weight 2023-03-28 21:56:00 99 kg [facility] BMI 2023-03-28 21:56:00 28.02 kg/m2 [facility] Body height 2023-03-18 14:00:00 188 cm [facility] Systolic blood pressure 2023-03-25 16:15:00 128 mm[Hg] [facility] Diastolic blood pressure 2023-03-25 16:15:00 59 mm[Hg] [facility] Heart rate 2023-03-25 16:15:00 68 /min [facility] Body temperature 2023-03-25 16:15:00 36.22 Anaya [facility] Respiratory rate 2023-03-25 16:15:00 20 /min [facility] Oxygen saturation in Arterial blood by Pulse oximetry 2023-03-25 16:15:00 100 /min [facility] Body weight 2023-03-21 11:01:00 93.895 kg standing scale [facility] BMI 2023-03-21 11:01:00 27.88 kg/m2 [facility] Body height 2023-03-18 14:00:00 188 cm [facility] Systolic blood pressure 2023-02-13 12:07:00 189 mm[Hg] [facility] Diastolic blood pressure 2023-02-13 12:07:00 52 mm[Hg] [facility] Heart rate 2023-02-13 12:07:00 62 /min [facility] Body temperature 2023-02-13 12:07:00 36.83 Anaya [facility] Respiratory rate 2023-02-13 12:07:00 16 /min [facility] Body height 2023-02-13 12:07:00 188 cm [facility] Body weight 2023-02-13 12:07:00 106.3 kg [facility] BMI 2023-02-13 12:07:00 30.09 kg/m2 [facility] Oxygen saturation in Arterial blood by Pulse oximetry 2023-02-13 12:07:00 95 /min [facility] Systolic blood pressure 2023-02-04 20:12:00 162 mm[Hg] [facility] Diastolic blood pressure 2023-02-04 20:12:00 61 mm[Hg] [facility] Heart rate 2023-02-04 20:12:00 62 /min [facility] Respiratory rate 2023-02-04 20:12:00 19 /min [facility] Body height 2023-02-04 20:12:00 182.9 cm [facility] Body weight 2023-02-04 20:12:00 105.507 kg [facility] BMI 2023-02-04 20:12:00 31.55 kg/m2 [facility] Oxygen saturation in Arterial blood by Pulse oximetry 2023-02-04 20:12:00 93 /min [facility] Systolic blood pressure 2023-01-17 18:32:00 130 mm[Hg] [facility] Diastolic blood pressure 2023-01-17 18:32:00 74 mm[Hg] [facility] Heart rate 2023-01-17 18:32:00 75 /min [facility] Body temperature 2023-01-17 18:32:00 36.78 Anaya [facility] Respiratory rate 2023-01-17 18:32:00 18 /min [facility] Body height 2023-01-17 18:32:00 188 cm [facility] Body weight 2023-01-17 18:32:00 102.785 kg [facility] BMI 2023-01-17 18:32:00 29.09 kg/m2 [facility] Oxygen saturation in Arterial blood by Pulse oximetry 2023-01-17 18:32:00 95 /min [facility] Systolic blood pressure 2023-01-16 15:49:00 133 mm[Hg] [facility] Diastolic blood pressure 2023-01-16 15:49:00 64 mm[Hg] [facility] Heart rate 2023-01-16 15:34:00 84 /min [facility] Body temperature 2023-01-16 15:34:00 36.56 Anaya [facility] Respiratory rate 2023-01-16 15:34:00 18 /min [facility] Body height 2023-01-16 15:34:00 182.9 cm [facility] Body weight 2023-01-16 15:34:00 102.74 kg [facility] BMI 2023-01-16 15:34:00 30.72 kg/m2 [facility] Oxygen saturation in Arterial blood by Pulse oximetry 2023-01-16 15:34:00 93 /min [facility] Systolic blood pressure 2022-12-04 18:28:00 107 mm[Hg] [facility] Diastolic blood pressure 2022-12-04 18:28:00 59 mm[Hg] [facility] Heart rate 2022-12-04 18:28:00 68 /min [facility] Respiratory rate 2022-12-04 18:28:00 18 /min [facility] Body height 2022-12-04 18:28:00 182.9 cm [facility] Body weight 2022-12-04 18:28:00 99.746 kg [facility] BMI 2022-12-04 18:28:00 29.82 kg/m2 [facility] Oxygen saturation in Arterial blood by Pulse oximetry 2022-12-04 18:28:00 94 /min [facility] Systolic blood pressure 2022-11-26 15:33:00 133 mm[Hg] [facility] Diastolic blood pressure 2022-11-26 15:33:00 70 mm[Hg] [facility] Heart rate 2022-11-26 15:33:00 80 /min [facility] Respiratory rate 2022-11-26 15:33:00 19 /min [facility] Body height 2022-11-26 15:33:00 188 cm [facility] Body weight 2022-11-26 15:33:00 100.472 kg [facility] BMI 2022-11-26 15:33:00 28.44 kg/m2 [facility] Oxygen saturation in Arterial blood by Pulse oximetry 2022-11-26 15:33:00 95 /min [facility] Systolic blood pressure 2022-10-15 19:29:00 131 mm[Hg] [facility] Diastolic blood pressure 2022-10-15 19:29:00 60 mm[Hg] [facility] Heart rate 2022-10-15 19:29:00 74 /min [facility] Body temperature 2022-10-15 19:24:00 36.5 Anaya [facility] Respiratory rate 2022-10-15 19:24:00 18 /min [facility] Body height 2022-10-15 19:24:00 185.4 cm [facility] Body weight 2022-10-15 19:24:00 91.717 kg [facility] BMI 2022-10-15 19:24:00 26.68 kg/m2 [facility] Oxygen saturation in Arterial blood by Pulse oximetry 2022-10-15 19:24:00 96 /min [facility] Systolic blood pressure 2022-10-11 20:11:00 121 mm[Hg] [facility] Diastolic blood pressure 2022-10-11 20:11:00 66 mm[Hg] [facility] Heart rate 2022-10-11 20:11:00 65 /min [facility] Body temperature 2022-10-11 20:11:00 36.67 Anaya [facility] Body height 2022-10-11 20:11:00 182.9 cm [facility] Body weight 2022-10-11 20:11:00 90.81 kg [facility] BMI 2022-10-11 20:11:00 27.15 kg/m2 [facility] Oxygen saturation in Arterial blood by Pulse oximetry 2022-10-11 20:11:00 97 /min [facility] Heart rate 2022-10-05 19:21:00 72 /min [facility] Oxygen saturation in Arterial blood by Pulse oximetry 2022-10-05 19:21:00 100 /min room air [facility] Systolic blood pressure 2022-10-05 18:36:00 118 mm[Hg] [facility] Diastolic blood pressure 2022-10-05 18:36:00 68 mm[Hg] [facility] Body temperature 2022-10-05 17:00:00 36.72 Anaya [facility] Respiratory rate 2022-10-05 17:00:00 16 /min [facility] Body height 2022-10-02 16:30:00 182.9 cm [facility] Body weight 2022-10-02 16:30:00 90.719 kg [facility] BMI 2022-10-02 16:30:00 27.12 kg/m2 [facility] Systolic blood pressure 2022-09-28 19:28:00 103 mm[Hg] [facility] Diastolic blood pressure 2022-09-28 19:28:00 54 mm[Hg] [facility] Heart rate 2022-09-28 19:28:00 86 /min [facility] Respiratory rate 2022-09-28 19:27:00 18 /min [facility] Body height 2022-09-28 19:27:00 185.4 cm [facility] Body weight 2022-09-28 19:27:00 97.523 kg [facility] BMI 2022-09-28 19:27:00 28.37 kg/m2 [facility] Oxygen saturation in Arterial blood by Pulse oximetry 2022-09-28 19:27:00 96 /min [facility] Systolic blood pressure 2022-09-26 23:34:00 123 mm[Hg] [facility] Diastolic blood pressure 2022-09-26 23:34:00 57 mm[Hg] [facility] Heart rate 2022-09-26 23:34:00 71 /min [facility] Body temperature 2022-09-26 23:34:00 37 Anaya [facility] Respiratory rate 2022-09-26 23:34:00 14 /min [facility] Body height 2022-09-26 23:34:00 185.4 cm [facility] Body weight 2022-09-26 23:34:00 97.523 kg [facility] BMI 2022-09-26 23:34:00 28.37 kg/m2 [facility] Oxygen saturation in Arterial blood by Pulse oximetry 2022-09-26 23:34:00 99 /min [facility] Systolic blood pressure 2022-09-25 00:41:00 143 mm[Hg] [facility] Diastolic blood pressure 2022-09-25 00:41:00 77 mm[Hg] [facility] Heart rate 2022-09-25 00:41:00 80 /min [facility] Body temperature 2022-09-25 00:41:00 36.44 Anaya [facility] Body height 2022-09-25 00:41:00 185.4 cm [facility] Body weight 2022-09-25 00:41:00 92.335 kg [facility] BMI 2022-09-25 00:41:00 26.86 kg/m2 [facility] Oxygen saturation in Arterial blood by Pulse oximetry 2022-09-25 00:41:00 90 /min wears o2 2l via NC at home [facility] Systolic blood pressure 2022-09-21 21:02:00 150 mm[Hg] [facility] Diastolic blood pressure 2022-09-21 21:02:00 64 mm[Hg] [facility] Heart rate 2022-09-21 21:02:00 81 /min [facility] Body temperature 2022-09-21 20:54:00 37.39 Anaya [facility] Respiratory rate 2022-09-21 20:54:00 18 /min [facility] Body height 2022-09-21 20:54:00 185.4 cm [facility] Body weight 2022-09-21 20:54:00 95.255 kg [facility] BMI 2022-09-21 20:54:00 27.71 kg/m2 [facility] Oxygen saturation in Arterial blood by Pulse oximetry 2022-09-21 20:54:00 95 /min [facility] Systolic blood pressure 2022-09-18 15:09:00 133 mm[Hg] [facility] Diastolic blood pressure 2022-09-18 15:09:00 69 mm[Hg] [facility] Heart rate 2022-09-18 15:03:00 81 /min [facility] Body temperature 2022-09-18 15:03:00 36.06 Anaya [facility] Respiratory rate 2022-09-18 15:03:00 18 /min [facility] Body height 2022-09-18 15:03:00 185.4 cm [facility] Body weight 2022-09-18 15:03:00 95.346 kg [facility] BMI 2022-09-18 15:03:00 27.73 kg/m2 [facility] Oxygen saturation in Arterial blood by Pulse oximetry 2022-09-18 15:03:00 97 /min [facility] Systolic blood pressure 2022-09-08 17:56:00 136 mm[Hg] [facility] Diastolic blood pressure 2022-09-08 17:56:00 63 mm[Hg] [facility] Heart rate 2022-09-08 17:56:00 72 /min [facility] Body temperature 2022-09-08 17:56:00 36.17 Anaya [facility] Respiratory rate 2022-09-08 17:56:00 18 /min [facility] Oxygen saturation in Arterial blood by Pulse oximetry 2022-09-08 17:56:00 91 /min [facility] Body weight 2022-09-07 10:52:00 103.465 kg [facility] BMI 2022-09-07 10:52:00 30.09 kg/m2 [facility] Body height 2022-08-31 17:08:00 185.4 cm [facility] Systolic blood pressure 2022-09-04 19:19:07 140 mm[Hg] [facility] Diastolic blood pressure 2022-09-04 19:19:07 67 mm[Hg] [facility] Respiratory rate 2022-09-04 19:19:07 26 /min [facility] Oxygen saturation in Arterial blood by Pulse oximetry 2022-09-04 19:19:07 99 /min [facility] Heart rate 2022-09-04 18:05:00 66 /min [facility] Body temperature 2022-09-04 14:03:00 36.22 Anaya [facility] Body weight 2022-09-04 11:33:00 109.272 kg actual wt on the regular scale [facility] BMI 2022-09-04 11:33:00 31.78 kg/m2 [facility] Body height 2022-08-31 17:08:00 185.4 cm [facility] Systolic blood pressure 2022-06-05 16:06:00 160 mm[Hg] [facility] Diastolic blood pressure 2022-06-05 16:06:00 79 mm[Hg] [facility] Heart rate 2022-06-05 16:06:00 83 /min [facility] Respiratory rate 2022-06-05 16:06:00 18 /min [facility] Oxygen saturation in Arterial blood by Pulse oximetry 2022-06-05 16:06:00 95 /min [facility] Body temperature 2022-06-05 16:04:00 36.83 Anaya [facility] Body weight 2022-06-05 16:04:00 105.597 kg [facility] BMI 2022-06-05 16:04:00 29.89 kg/m2 [facility] Systolic blood pressure 2022-05-10 15:56:00 161 mm[Hg] [facility] Diastolic blood pressure 2022-05-10 15:56:00 78 mm[Hg] [facility] Heart rate 2022-05-10 15:56:00 80 /min [facility] Oxygen saturation in Arterial blood by Pulse oximetry 2022-05-10 15:56:00 91 /min [facility] Respiratory rate 2022-05-10 15:55:00 20 /min [facility] Body height 2022-05-10 15:55:00 188 cm [facility] Body weight 2022-05-10 15:55:00 103.329 kg [facility] BMI 2022-05-10 15:55:00 29.25 kg/m2 [facility] Systolic blood pressure 2023-03-20 16:30:00 126 mm[Hg] [facility] Diastolic blood pressure 2023-03-20 16:30:00 53 mm[Hg] [facility] Heart rate 2023-03-20 16:30:00 75 /min [facility] Respiratory rate 2023-03-20 13:30:00 20 /min [facility] Body weight 2023-03-20 13:30:00 101.5 kg bed scale [facility] BMI 2023-03-20 13:30:00 28.73 kg/m2 [facility] Body temperature 2023-03-20 12:25:00 36.5 Anaya [facility] Oxygen saturation in Arterial blood by Pulse oximetry 2023-03-20 12:25:00 97 /min [facility] Body height 2023-03-18 14:00:00 188 cm [facility] Heart rate 2023-03-07 16:03:00 74 /min [facility] Body temperature 2023-03-07 16:03:00 36.39 Anaya [facility] Respiratory rate 2023-03-07 16:03:00 20 /min [facility] Oxygen saturation in Arterial blood by Pulse oximetry 2023-03-07 16:03:00 98 /min [facility] Systolic blood pressure 2023-03-06 22:00:00 121 mm[Hg] [facility] Diastolic blood pressure 2023-03-06 22:00:00 51 mm[Hg] [facility] Body height 2023-03-06 17:47:30 188 cm [facility] Body weight 2023-03-06 17:47:30 112.946 kg [facility] BMI 2023-03-06 17:47:30 31.97 kg/m2 [facility] Procedures Procedure Date / Time Performed Performing Clinician Source POCT GLUCOSE (AUTOMATED) 2024-03-02 16:37:00 Chaparro Mckeon [facility] POCT GLUCOSE (AUTOMATED) 2024-03-02 12:30:00 Chaparro Mckeon [facility] BASIC METABOLIC PANEL (NA, K, CL, CO2, GLUCOSE, BUN, CREATININE, CA) 2024-03-02 09:28:00 Bernadine Che [facility] CBC WITH DIFF 2024-03-02 09:28:00 Bernadine Che [facility] POCT GLUCOSE (AUTOMATED) 2024-03-02 01:27:00 Chaparro Mckeon [facility] POCT GLUCOSE (AUTOMATED) 2024-03-01 21:18:00 Chaparro Mckeon [facility] POCT GLUCOSE (AUTOMATED) 2024-03-01 16:29:00 Chaparro Mckeon [facility] POCT GLUCOSE (AUTOMATED) 2024-03-01 12:28:00 Chaparro Mckeon [facility] BASIC METABOLIC PANEL (NA, K, CL, CO2, GLUCOSE, BUN, CREATININE, CA) 2024-03-01 08:32:00 Emelia Webb [facility] CBC WITH DIFF 2024-03-01 08:32:00 Emelia Webb [facility] POCT GLUCOSE (AUTOMATED) 2024-03-01 01:32:00 [facility] POCT GLUCOSE (AUTOMATED) 2024-02-29 21:22:00 Chaparro Mckeon [facility] POCT GLUCOSE (AUTOMATED) 2024-02-29 16:28:00 Chaparro Mckeon [facility] POCT GLUCOSE (AUTOMATED) 2024-02-29 12:22:00 Chaparro Mckeon [facility] GLYCOSYLATED HEMOGLOBIN (A1C) 2024-02-29 09:43:[address] [facility] N-TERMINAL PRO-BNP 2024-02-29 09:43:[address] [facility] HB ECG ROUTINE & RHYTHM STRIP 2024-02-28 23:32:16 Sonny [facility] TROPONIN I 2024-02-28 23:31:00 Stephanie Dennis [facility] COMP. METABOLIC PANEL (54517) 2024-02-28 23:31:00 Sonny [facility] CBC WITH DIFF 2024-02-28 23:31:00 Sonny [facility] PROTHROMBIN TIME / INR 2024-02-28 23:31:00 Max Dennis [facility] N-TERMINAL PRO-BNP 2024-02-28 23:31:00 Sonny [facility] XR CHEST 1 VW 2024-02-28 23:19:00 Sonny [facility] US DUPLEX VENOUS ARM RIGHT - BY VASCULAR LAB 2024-02-28 23:14:49 [facility] INS[facility]ANCE CORRESPONDENCE 2023-09-10 06:01:00 Doc cuco Unassigned, [facility] DME/SUPPLY JUSTIFICATION 2023-06-18 05:01:00 Doc cuco Unassigned, [facility] PHYSICIAN CERTIFICATION STATEMENT 2023-06-03 05:01:00 Doctor Unassigned, [facility] DME/SUPPLY JUSTIFICATION 2023-05-28 05:01:00 Doc cuco Unassigned, [facility] HOME HEALTH - OTHER 2023-05-20 05:01:00 Doctor U ricardosigned, [facility] HOME HEALTH - OTHER 2023-05-09 05:01:00 Doctor U horacegned, [facility] DME/SUPPLY JUSTIFICATION 2023-04-30 05:01:00 Doc tor Unassigned, [facility] POCT GLUCOSE (AUTOMATED) 2023-04-01 17:54:00 LickJasviro tt [facility] POCT GLUCOSE (AUTOMATED) 2023-04-01 12:58:00 LickJasviro tt [facility] POCT GLUCOSE (AUTOMATED) 2023-04-01 11:38:00 TeresakJasviro alfred [facility] PHOSPHORUS 2023-04-01 09:34:00 Bertha Fried [facility] MAGNESIUM 2023-04-01 09:34:00 Bertha Fried [facility] BASIC METABOLIC PANEL (NA, K, CL, CO2, GLUCOSE, BUN, CREATININE, CA) 2023-04-01 09:34:00 Ashwin Fried [facility] CBC WITH DIFF 2023-04-01 09:34:00 Bertha Fried [facility] POCT GLUCOSE (AUTOMATED) 2023-04-01 09:18:00 TeresakJasviro alfred [facility] POCT GLUCOSE (AUTOMATED) 2023-04-01 04:37:00 LickJasviro tt [facility] POCT GLUCOSE (AUTOMATED) 2023-03-31 22:52:00 Lick, Sco tt [facility] POCT GLUCOSE (AUTOMATED) 2023-03-31 17:55:00 Lick, Jasviro tt [facility] POCT GLUCOSE (AUTOMATED) 2023-03-31 13:52:00 Lick, Sco tt [facility] POCT GLUCOSE (AUTOMATED) 2023-03-31 12:44:00 Lick, Sco tt [facility] POCT GLUCOSE (AUTOMATED) 2023-03-31 10:58:00 Lick, Sco tt [facility] PHOSPHORUS 2023-03-31 07:43:00 Bertha Fried [facility] MAGNESIUM 2023-03-31 07:43:00 Bertha Fried [facility] BASIC METABOLIC PANEL (NA, K, CL, CO2, GLUCOSE, BUN, CREATININE, CA) 2023-03-31 07:43:00 Ashwin Fried [facility] CBC WITH DIFF 2023-03-31 07:43:00 Bertha Fried [facility] POCT GLUCOSE (AUTOMATED) 2023-03-31 05:00:00 Lick, Jasviro tt [facility] POCT GLUCOSE (AUTOMATED) 2023-03-30 23:26:00 Lick, Sco tt [facility] POCT GLUCOSE (AUTOMATED) 2023-03-30 17:19:00 Lick, Sco tt [facility] POCT GLUCOSE (AUTOMATED) 2023-03-30 14:59:00 Lick, Sco tt [facility] UPPER EXTREMITY ARTERIAL DUPLEX BILATERAL - BY VASCULAR LAB 2023-03-30 14:21:10 Ashwin Fried [facility] POCT GLUCOSE (AUTOMATED) 2023-03-30 11:10:00 Lick, Jasviro tt [facility] PHOSPHORUS 2023-03-30 05:14:00 Bertha Fried [facility] MAGNESIUM 2023-03-30 05:14:00 Bertha Fried [facility] BASIC METABOLIC PANEL (NA, K, CL, CO2, GLUCOSE, BUN, CREATININE, CA) 2023-03-30 05:14:00 Ashwin Fried [facility] CBC WITH DIFF 2023-03-30 05:14:00 Bertha Friedooq [facility] POCT GLUCOSE (AUTOMATED) 2023-03-30 05:12:00 Lick, Jasviro tt [facility] POCT GLUCOSE (AUTOMATED) 2023-03-30 03:56:00 Lick, Sco tt [facility] POTASSIUM SERUM 2023-03-30 02:21:00 Jo Ann Cortes [facility] BASIC METABOLIC PANEL (NA, K, CL, CO2, GLUCOSE, BUN, CREATININE, CA) 2023-03-30 00:58:00 Soy Coates [facility] POCT GLUCOSE (AUTOMATED) 2023-03-29 23:41:00 LicBlessing garcia [facility] ABG+COOX+NA+K+GLU+CA2+ 2023-03-29 21:16:00 uBrke Long [facility] PHOSPHORUS 2023-03-29 21:08:00 Kae Boyce [facility] ACTIVATED PARTIAL THRMPLAS LAURI 2023-03-29 21:08:00 Mya Eller [facility] POCT GLUCOSE (AUTOMATED) 2023-03-29 21:08:00 Blessing Long [facility] CBC WITHOUT DIFF 2023-03-29 21:07:00 [facility] HB ECG ROUTINE & RHYTHM STRIP 2023-03-29 20:58:44 [facility] TRANSFUSE PACKED RBC (IN ML) 2023-03-29 18:39:00 Lashay Samayoa [facility] TRANSFUSE PACKED RBC (IN ML) 2023-03-29 16:55:00 Lashay Samayoa [facility] FL TIME OR (NON-REPORTABLE) 2023-03-29 16:33:46 Charles Collado [facility] PREPARE PACKED RBC 2023-03-29 16:13:23 Lashay Samayoa [facility] TRANSFUSE PACKED RBC (IN ML) 2023-03-29 14:20:00 Lashay Samayoa [facility] BELOW THE KNEE AMPUTATION 2023-03-29 13:20:00 Juanito Collado [facility] ARTERIOGRAM 2023-03-29 13:20:[address] [facility] PREPARE PACKED RBC 2023-03-29 13:16:36 Ashwin Fried [facility] POCT GLUCOSE (AUTOMATED) 2023-03-29 09:15:00 Lick, Sco tt [facility] CBC WITH DIFF 2023-03-29 09:04:00 Bertha Fried [facility] PHOSPHORUS 2023-03-29 08:41:00 Bertha Fried [facility] MAGNESIUM 2023-03-29 08:41:00 Bertha Fried [facility] BASIC METABOLIC PANEL (NA, K, CL, CO2, GLUCOSE, BUN, CREATININE, CA) 2023-03-29 08:41:00 Ashwin Fried [facility] POCT GLUCOSE (AUTOMATED) 2023-03-29 04:36:00 Lick, Sco tt [facility] POCT GLUCOSE (AUTOMATED) 2023-03-28 23:25:00 Lick, Sco tt [facility] POCT GLUCOSE (AUTOMATED) 2023-03-28 18:39:00 Lick, Sco tt [facility] POCT GLUCOSE (AUTOMATED) 2023-03-28 13:50:00 Lick, Sco tt [facility] POCT GLUCOSE (AUTOMATED) 2023-03-28 11:25:00 Lick, Sco tt [facility] POCT GLUCOSE (AUTOMATED) 2023-03-28 10:54:00 Lick, Sco tt [facility] MAGNESIUM 2023-03-28 10:34:00 Felipe reyes [facility] BASIC METABOLIC PANEL (NA, K, CL, CO2, GLUCOSE, BUN, CREATININE, CA) 2023-03-28 10:34:00 [facility]FF 2023-03-28 10:34:00 [facility]eka [facility]acia [facility] HB ABO GROUPING 2023-03-28 10:34:00 Felipe reyes [facility] POCT GLUCOSE (AUTOMATED) 2023-03-28 10:31:00 Lick, Sco tt [facility] POCT GLUCOSE (AUTOMATED) 2023-03-28 04:53:00 Lick, Sco tt [facility] POCT GLUCOSE (AUTOMATED) 2023-03-28 01:50:00 LickJasviro tt [facility] POCT GLUCOSE (AUTOMATED) 2023-03-27 22:44:00 LickJasviro tt [facility] POCT GLUCOSE (AUTOMATED) 2023-03-27 17:10:00 LickJasviro tt [facility] POCT GLUCOSE (AUTOMATED) 2023-03-27 14:45:00 TeresakBlessing [facility] PHOSPHORUS 2023-03-27 10:04:00 Bertha Fried [facility] MAGNESIUM 2023-03-27 10:04:00 Bertha Fried [facility] BASIC METABOLIC PANEL (NA, K, CL, CO2, GLUCOSE, BUN, CREATININE, CA) 2023-03-27 10:04:00 Ashwin Fried [facility] CBC WITH DIFF 2023-03-27 10:04:00 Bertha Fried [facility] POCT GLUCOSE (AUTOMATED) 2023-03-27 05:08:00 Lick Jasviro [facility] POCT GLUCOSE (AUTOMATED) 2023-03-27 02:00:00 Lick Jasviro [facility] POCT GLUCOSE (AUTOMATED) 2023-03-26 22:34:00 LickJasviro tt [facility] POCT GLUCOSE (AUTOMATED) 2023-03-26 16:52:00 Lick, Jasviro [facility] POCT GLUCOSE (AUTOMATED) 2023-03-26 16:52:00 Lick, Jasviro tt [facility] POCT GLUCOSE (AUTOMATED) 2023-03-26 12:55:00 Lick, Jasviro [facility] POCT GLUCOSE (AUTOMATED) 2023-03-26 12:55:00 Lick, Jasviro tt [facility] PHOSPHORUS 2023-03-26 09:44:00 Bertha Fried [facility] MAGNESIUM 2023-03-26 09:44:00 Bertha Fried [facility] BASIC METABOLIC PANEL (NA, K, CL, CO2, GLUCOSE, BUN, CREATININE, CA) 2023-03-26 09:44:00 Ashwin Fried [facility] CBC WITH DIFF 2023-03-26 09:44:00 Bertha Fried [facility] PHOSPHORUS 2023-03-26 09:44:00 Bertha Fried Hunter [facility] MAGNESIUM 2023-03-26 09:44:00 Betrha Fried [facility] BASIC METABOLIC PANEL (NA, K, CL, CO2, GLUCOSE, BUN, CREATININE, CA) 2023-03-26 09:44:00 Ashwin Fried Hunter [facility] CBC WITH DIFF 2023-03-26 09:44:00 Bertha Fried Hunter [facility] POCT GLUCOSE (AUTOMATED) 2023-03-26 09:42:00 Lick, Sco tt [facility] POCT GLUCOSE (AUTOMATED) 2023-03-26 09:42:00 Lick, Sco tt [facility] POCT GLUCOSE (AUTOMATED) 2023-03-26 01:03:00 Lick, Sco tt [facility] POCT GLUCOSE (AUTOMATED) 2023-03-26 01:03:00 Lick, Sco tt [facility] POCT GLUCOSE (AUTOMATED) 2023-03-25 21:57:00 Lick, Sco tt [facility] POCT GLUCOSE (AUTOMATED) 2023-03-25 21:57:00 Lick, Sco tt [facility] POCT GLUCOSE (AUTOMATED) 2023-03-25 20:36:00 Lick, Sco tt [facility] POCT GLUCOSE (AUTOMATED) 2023-03-25 20:36:00 Lick, Sco tt [facility] FL TIME OR (NON-REPORTABLE) 2023-03-25 18:50:00 Tiffany Meza [facility] FL TIME OR (NON-REPORTABLE) 2023-03-25 18:50:00 Tiffany Meza [facility] ARTERIOGRAM 2023-03-25 17:22:[address] [facility] POCT GLUCOSE (AUTOMATED) 2023-03-25 17:01:00 TeresakBlessing [facility] POCT GLUCOSE (AUTOMATED) 2023-03-25 17:01:00 LickJasviro alfred [facility] POCT GLUCOSE (AUTOMATED) 2023-03-25 16:25:00 LickJasviro alfred [facility] POCT GLUCOSE (AUTOMATED) 2023-03-25 16:25:00 LickJasviro alfred [facility] MAGNESIUM 2023-03-25 10:41:00 Felipe reyes [facility] BASIC METABOLIC PANEL (NA, K, CL, CO2, GLUCOSE, BUN, CREATININE, CA) 2023-03-25 10:41:00 Felipe Edwards [facility] CBC WITH DIFF 2023-03-25 10:41:00 Felipe reyes [facility] MAGNESIUM 2023-03-25 10:41:00 Felipe reyes [facility] BASIC METABOLIC PANEL (NA, K, CL, CO2, GLUCOSE, BUN, CREATININE, CA) 2023-03-25 10:41:00 Felipe Edwards [facility] CBC WITH DIFF 2023-03-25 10:41:00 Felipe reyes [facility] POCT GLUCOSE (AUTOMATED) 2023-03-25 10:37:00 LickJasviro alfred [facility] POCT GLUCOSE (AUTOMATED) 2023-03-25 10:37:00 LickJasviro alfred [facility] POCT GLUCOSE (AUTOMATED) 2023-03-25 05:17:00 LickJasviro alfred [facility] POCT GLUCOSE (AUTOMATED) 2023-03-25 05:17:00 LickJasviro alfred [facility] POCT GLUCOSE (AUTOMATED) 2023-03-25 00:38:00 LickJasviro alfred [facility] POCT GLUCOSE (AUTOMATED) 2023-03-25 00:38:00 Lick, Jasviro tt [facility] POCT GLUCOSE (AUTOMATED) 2023-03-24 21:44:00 Lick, Sco tt [facility] POCT GLUCOSE (AUTOMATED) 2023-03-24 21:44:00 Lick, Sco tt [facility] POCT GLUCOSE (AUTOMATED) 2023-03-24 16:48:00 Lick, Sco tt [facility] POCT GLUCOSE (AUTOMATED) 2023-03-24 16:48:00 Lick, Sco tt [facility] POCT GLUCOSE (AUTOMATED) 2023-03-24 11:47:00 Lick, Jasviro tt [facility] POCT GLUCOSE (AUTOMATED) 2023-03-24 11:47:00 Lick, Sco tt [facility] POCT GLUCOSE (AUTOMATED) 2023-03-24 11:08:00 Lick, Jasviro tt [facility] POCT GLUCOSE (AUTOMATED) 2023-03-24 11:08:00 Lick, Jasviro tt [facility] MAGNESIUM 2023-03-24 10:32:00 Felipe reyes [facility] BASIC METABOLIC PANEL (NA, K, CL, CO2, GLUCOSE, BUN, CREATININE, CA) 2023-03-24 10:32:00 Felipe Edwards [facility] CBC WITH DIFF 2023-03-24 10:32:00 [facility]eka [facility] 2023-03-24 10:32:00 Felipe reyes [facility] BASIC METABOLIC PANEL (NA, K, CL, CO2, GLUCOSE, BUN, CREATININE, CA) 2023-03-24 10:32:00 Felipe Edwards [facility] CBC WITH DIFF 2023-03-24 10:32:00 Felipe reyes [facility] POCT GLUCOSE (AUTOMATED) 2023-03-24 10:31:00 Lick, Jasviro alfred [facility] POCT GLUCOSE (AUTOMATED) 2023-03-24 10:31:00 Lick, Sco tt [facility] POCT GLUCOSE (AUTOMATED) 2023-03-24 05:33:00 Lick, Sco tt [facility] POCT GLUCOSE (AUTOMATED) 2023-03-24 05:33:00 Lick, Sco tt [facility] POCT GLUCOSE (AUTOMATED) 2023-03-24 00:40:00 Lick, Sco tt [facility] POCT GLUCOSE (AUTOMATED) 2023-03-24 00:40:00 Lick, Sco tt [facility] POCT GLUCOSE (AUTOMATED) 2023-03-23 21:51:00 Lick, Sco tt [facility] POCT GLUCOSE (AUTOMATED) 2023-03-23 21:51:00 Lick, Sco tt [facility] CBC WITHOUT DIFF 2023-03-23 20:03:00 Felipe hargrove [facility] CBC WITHOUT DIFF 2023-03-23 20:03:00 Felipe hargrove [facility] PREPARE PACKED RBC 2023-03-23 15:45:46 Felipe patel [facility] PREPARE PACKED RBC 2023-03-23 15:45:46 Felipe patel [facility] POCT GLUCOSE (AUTOMATED) 2023-03-23 13:03:00 Lick, Jasviro tt [facility] POCT GLUCOSE (AUTOMATED) 2023-03-23 13:03:00 Lick, Sco tt [facility] MAGNESIUM 2023-03-23 10:13:00 Bertha Fried [facility] BASIC METABOLIC PANEL (NA, K, CL, CO2, GLUCOSE, BUN, CREATININE, CA) 2023-03-23 10:13:00 Ashwin Fried [facility] CBC WITH DIFF 2023-03-23 10:13:00 Bertha Fried [facility] HB ABO GROUPING 2023-03-23 10:13:00 [facility]-23 10:13:00 Bertha Fried [facility] BASIC METABOLIC PANEL (NA, K, CL, CO2, GLUCOSE, BUN, CREATININE, CA) 2023-03-23 10:13:00 Ashwin Fried [facility] CBC WITH DIFF 2023-03-23 10:13:00 Bertha Fried [facility] HB ABO GROUPING 2023-03-23 10:13:00 [facility] PO[facility] (AUTOMATED) 2023-03-23 10:06:00 Lick, Sco tt [facility] POCT GLUCOSE (AUTOMATED) 2023-03-23 10:06:00 Lick, Sco tt [facility] POCT GLUCOSE (AUTOMATED) 2023-03-23 05:52:00 Lick, Sco tt [facility] POCT GLUCOSE (AUTOMATED) 2023-03-23 05:52:00 Lick, Sco tt [facility] POCT GLUCOSE (AUTOMATED) 2023-03-23 01:31:00 Lick, Sco tt [facility] POCT GLUCOSE (AUTOMATED) 2023-03-23 01:31:00 Lick, Sco tt [facility] POCT GLUCOSE (AUTOMATED) 2023-03-22 23:27:00 Lick, Sco tt [facility] POCT GLUCOSE (AUTOMATED) 2023-03-22 23:27:00 Lick, Sco tt [facility] BASIC METABOLIC PANEL (NA, K, CL, CO2, GLUCOSE, BUN, CREATININE, CA) 2023-03-22 18:09:00 [facility] (NA, K, CL, CO2, GLUCOSE, BUN, CREATININE, CA) 2023-03-22 18:09:00 Beka Correia Tanmay [facility] POCT GLUCOSE (AUTOMATED) 2023-03-22 18:08:00 Lick, Sco tt [facility] POCT GLUCOSE (AUTOMATED) 2023-03-22 18:08:00 Lick, Sco tt [facility] POCT GLUCOSE (AUTOMATED) 2023-03-22 13:38:00 Lick, Jasviro tt [facility] POCT GLUCOSE (AUTOMATED) 2023-03-22 13:38:00 Lick, Jasviro tt [facility] POCT GLUCOSE (AUTOMATED) 2023-03-22 08:05:00 Lick, Jasviro tt [facility] POCT GLUCOSE (AUTOMATED) 2023-03-22 08:05:00 Lick, Jasviro tt [facility] POCT GLUCOSE (AUTOMATED) 2023-03-22 05:13:00 Lick, Jasviro tt [facility] POCT GLUCOSE (AUTOMATED) 2023-03-22 05:13:00 Lick, Jasviro tt [facility] POCT GLUCOSE (AUTOMATED) 2023-03-22 01:59:00 Lick, Jasviro tt [facility] POCT GLUCOSE (AUTOMATED) 2023-03-22 01:59:00 Lick, Jasviro tt [facility] POCT GLUCOSE (AUTOMATED) 2023-03-21 21:28:00 Lick, Jasviro tt [facility] POCT GLUCOSE (AUTOMATED) 2023-03-21 21:28:00 Lick, Jasviro tt [facility] POCT GLUCOSE (AUTOMATED) 2023-03-21 17:34:00 Lick, Jasviro tt [facility] POCT GLUCOSE (AUTOMATED) 2023-03-21 17:34:00 Lick, Jasviro tt [facility] POCT GLUCOSE (AUTOMATED) 2023-03-21 15:07:00 Lick, Sco tt [facility] POCT GLUCOSE (AUTOMATED) 2023-03-21 15:07:00 Lick, Jasviro tt [facility] POCT GLUCOSE (AUTOMATED) 2023-03-21 12:48:00 Lick, Sco tt [facility] POCT GLUCOSE (AUTOMATED) 2023-03-21 12:48:00 Lick, Sco tt [facility] POCT GLUCOSE (AUTOMATED) 2023-03-21 09:55:00 Lick, Sco tt [facility] POCT GLUCOSE (AUTOMATED) 2023-03-21 09:55:00 Lick, Sco tt [facility] POCT GLUCOSE (AUTOMATED) 2023-03-21 05:20:00 Lick, Sco tt [facility] POCT GLUCOSE (AUTOMATED) 2023-03-21 05:20:00 Lick, Sco tt [facility] POCT GLUCOSE (AUTOMATED) 2023-03-21 01:28:00 Lick, Sco tt [facility] POCT GLUCOSE (AUTOMATED) 2023-03-21 01:28:00 Lick, Sco tt [facility] POCT GLUCOSE (AUTOMATED) 2023-03-20 22:10:00 Lick, Sco tt [facility] POCT GLUCOSE (AUTOMATED) 2023-03-20 22:10:00 Lick, Jasviro [facility] POCT GLUCOSE (AUTOMATED) 2023-03-20 17:57:00 Lick, Jasviro tt [facility] POCT GLUCOSE (AUTOMATED) 2023-03-20 17:57:00 Lick, Jasviro [facility] POCT GLUCOSE (AUTOMATED) 2023-03-20 12:50:00 Lick, Jasviro tt [facility] POCT GLUCOSE (AUTOMATED) 2023-03-20 12:50:00 Lick, Sco tt [facility] POCT GLUCOSE (AUTOMATED) 2023-03-20 12:50:00 Lick, Sco [facility] BASIC METABOLIC PANEL (NA, K, CL, CO2, GLUCOSE, BUN, CREATININE, CA) 2023-03-20 09:01:00 Ashwin Fried [facility] MAGNESIUM 2023-03-20 09:01:00 Bertha Fried Hunter [facility] PHOSPHORUS 2023-03-20 09:01:00 Bertha Fried Hunter [facility] PHOSPHORUS 2023-03-20 09:01:00 Bertha Fried [facility] MAGNESIUM 2023-03-20 09:01:00 Bertha Fried [facility] BASIC METABOLIC PANEL (NA, K, CL, CO2, GLUCOSE, BUN, CREATININE, CA) 2023-03-20 09:01:00 Ashwin Fried Hunter [facility] PHOSPHORUS 2023-03-20 09:01:00 Bertha Fried lucie Simmonsq [facility] MAGNESIUM 2023-03-20 09:01:00 [facility] (NA, K, CL, CO2, GLUCOSE, BUN, CREATININE, CA) 2023-03-20 09:01:00 Ashwin Fried Hunter [facility] POCT GLUCOSE (AUTOMATED) 2023-03-20 08:59:00 Lick, Sco tt [facility] POCT GLUCOSE (AUTOMATED) 2023-03-20 08:59:00 Lick, Sco tt [facility] POCT GLUCOSE (AUTOMATED) 2023-03-20 08:59:00 Lick, Sco tt [facility] POCT GLUCOSE (AUTOMATED) 2023-03-20 05:03:00 Lick, Sco tt [facility] POCT GLUCOSE (AUTOMATED) 2023-03-20 05:03:00 Lick, Sco tt [facility] POCT GLUCOSE (AUTOMATED) 2023-03-20 05:03:00 Lick, Sco tt [facility] LOWER EXTREMITY ARTERIAL DUPLEX BILATERAL - BY VASCULAR LAB 2023-03-19 17:24:32 Marianne Chan A [facility] LOWER EXTREMITY ARTERIAL DUPLEX BILATERAL - BY VASCULAR LAB 2023-03-19 17:24:32 Marianne Chan A [facility] JYOTI MULTI LEVEL - BY VASCULAR LAB 2023-03-19 17:24:25 Milind Chanuwatosin A [facility] JYOTI MULTI LEVEL - BY VASCULAR LAB 2023-03-19 17:24:25 Marianne Chan A [facility] POCT GLUCOSE (AUTOMATED) 2023-03-19 16:43:00 Lick, Sco tt [facility] POCT GLUCOSE (AUTOMATED) 2023-03-19 16:43:00 Lick, Sco tt [facility] POCT GLUCOSE (AUTOMATED) 2023-03-19 16:43:00 Lick, Sco tt [facility] POCT GLUCOSE (AUTOMATED) 2023-03-19 14:24:00 Lick, Jasviro tt [facility] POCT GLUCOSE (AUTOMATED) 2023-03-19 14:24:00 Lick, Jasviro tt [facility] POCT GLUCOSE (AUTOMATED) 2023-03-19 14:24:00 Lick, Jasviro tt [facility] POCT GLUCOSE (AUTOMATED) 2023-03-19 09:29:00 Lick, Jasviro [facility] POCT GLUCOSE (AUTOMATED) 2023-03-19 09:29:00 Lick, Jasviro tt [facility] POCT GLUCOSE (AUTOMATED) 2023-03-19 09:29:00 [facility] (NA, K, CL, CO2, GLUCOSE, BUN, CREATININE, CA) 2023-03-19 09:27:00 Ashwin Fried [facility] MAGNESIUM 2023-03-19 09:27:00 Bertha Fried [facility] MAGNESIUM 2023-03-19 09:27:00 Corky [facility] BASIC METABOLIC PANEL (NA, K, CL, CO2, GLUCOSE, BUN, CREATININE, CA) 2023-03-19 09:27:00 Corky Ashwin [facility] MAGNESIUM 2023-03-19 09:27:00 Corky lucie [facility] BASIC METABOLIC PANEL (NA, K, CL, CO2, GLUCOSE, BUN, CREATININE, CA) 2023-03-19 09:27:00 Ashwin Fried [facility] POCT GLUCOSE (AUTOMATED) 2023-03-19 01:31:00 Lick Jasviro [facility] POCT GLUCOSE (AUTOMATED) 2023-03-19 01:31:00 Lick, Jasviro [facility] POCT GLUCOSE (AUTOMATED) 2023-03-19 01:31:00 Lick, Jasviro [facility] XR FOOT 3+ VW BILATERAL 2023-03-19 01:25:00 Marianne Kaplan [facility] XR FOOT 3+ VW BILATERAL 2023-03-19 01:25:00 Guicho Kaplanatofortino Houston [facility] XR FOOT 3+ VW BILATERAL 2023-03-19 01:25:00 Marianne Kaplan [facility] POCT GLUCOSE (AUTOMATED) 2023-03-18 13:33:00 Lick, Sco tt [facility] POCT GLUCOSE (AUTOMATED) 2023-03-18 13:33:00 Lick, Sco tt [facility] POCT GLUCOSE (AUTOMATED) 2023-03-18 13:33:00 Lick, Sco tt [facility] BASIC METABOLIC PANEL (NA, K, CL, CO2, GLUCOSE, BUN, CREATININE, CA) 2023-03-18 09:41:00 Beka Correia [facility] MAGNESIUM 2023-03-18 09:41:00 Beka Gracia [facility] CBC WITH DIFF 2023-03-18 09:41:00 [facility]a [facility] 2023-03-18 09:41:00 Beka Gracia [facility] PHOSPHORUS 2023-03-18 09:41:00 Felipe reyes [facility] 2023-03-18 09:41:00 Beka Gracia [facility] BASIC METABOLIC PANEL (NA, K, CL, CO2, GLUCOSE, BUN, CREATININE, CA) 2023-03-18 09:41:00 [facility]a [facility]reia [facility] WITH DIFF 2023-03-18 09:41:00 Felipe reyes [facility] 2023-03-18 09:41:00 Beka Gracia [facility] MAGN[facility]UM 2023-03-18 09:41:00 Felipe reyes Beka [facility] BASIC METABOLIC PANEL (NA, K, CL, CO2, GLUCOSE, BUN, CREATININE, CA) 2023-03-18 09:41:00 Beka Correia [facility] CBC WITH DIFF 2023-03-18 09:41:00 Beka Graciadro [facility] POCT GLUCOSE (AUTOMATED) 2023-03-18 09:38:00 Lick, Sco tt [facility] POCT GLUCOSE (AUTOMATED) 2023-03-18 09:38:00 Lick, Sco tt [facility] POCT GLUCOSE (AUTOMATED) 2023-03-18 09:38:00 Lick, Sco tt [facility] POCT GLUCOSE (AUTOMATED) 2023-03-18 04:39:00 Lick, Sco tt [facility] POCT GLUCOSE (AUTOMATED) 2023-03-18 04:39:00 Lick, Sco tt [facility] POCT GLUCOSE (AUTOMATED) 2023-03-18 04:39:00 Lick, Sco tt [facility] POCT GLUCOSE (AUTOMATED) 2023-03-18 01:42:00 Lick, Sco tt [facility] POCT GLUCOSE (AUTOMATED) 2023-03-18 01:42:00 Lick, Sco tt [facility] POCT GLUCOSE (AUTOMATED) 2023-03-18 01:42:00 Lick, Sco tt [facility] POCT GLUCOSE (AUTOMATED) 2023-03-17 22:19:00 Lick, Sco tt [facility] POCT GLUCOSE (AUTOMATED) 2023-03-17 22:19:00 Lick, Sco tt [facility] POCT GLUCOSE (AUTOMATED) 2023-03-17 22:19:00 Lick, Sco tt [facility] POCT GLUCOSE (AUTOMATED) 2023-03-17 17:31:00 Lick, Sco tt [facility] POCT GLUCOSE (AUTOMATED) 2023-03-17 17:31:00 Lick, Sco tt [facility] POCT GLUCOSE (AUTOMATED) 2023-03-17 17:31:00 Lick, Sco [facility] BASIC METABOLIC PANEL (NA, K, CL, CO2, GLUCOSE, BUN, CREATININE, CA) 2023-03-17 15:14:00 Mimi Antonio [facility] BASIC METABOLIC PANEL (NA, K, CL, CO2, GLUCOSE, BUN, CREATININE, CA) 2023-03-17 15:14:00 Mimi Antonio [facility] BASIC METABOLIC PANEL (NA, K, CL, CO2, GLUCOSE, BUN, CREATININE, CA) 2023-03-17 15:14:00 Mimi Antoniolyudmila [facility] POCT GLUCOSE (AUTOMATED) 2023-03-17 15:13:00 TeresakBlessing tt [facility] POCT GLUCOSE (AUTOMATED) 2023-03-17 15:13:00 TeresakJasviro tt [facility] POCT GLUCOSE (AUTOMATED) 2023-03-17 15:13:00 TeresakBlessing tt [facility] CBC WITH DIFF 2023-03-17 09:37:00 Felipe Zamud io, [facility] CBC WITH DIFF 2023-03-17 09:37:00 Felipe Zamud io, [facility] CBC WITH DIFF 2023-03-17 09:37:00 Felipe Zamud io, [facility] POCT GLUCOSE (AUTOMATED) 2023-03-17 09:35:00 LickJasviro tt [facility] POCT GLUCOSE (AUTOMATED) 2023-03-17 09:35:00 LickJasviro tt [facility] POCT GLUCOSE (AUTOMATED) 2023-03-17 09:35:00 LickJasviro tt [facility] POCT GLUCOSE (AUTOMATED) 2023-03-17 04:36:00 LickJasviro tt [facility] POCT GLUCOSE (AUTOMATED) 2023-03-17 04:36:00 LickJasviro tt [facility] POCT GLUCOSE (AUTOMATED) 2023-03-17 04:36:00 Lick Sco tt [facility] POCT GLUCOSE (AUTOMATED) 2023-03-17 01:24:00 Lick, Jasviro tt [facility] POCT GLUCOSE (AUTOMATED) 2023-03-17 01:24:00 Lick, Jasviro tt [facility] POCT GLUCOSE (AUTOMATED) 2023-03-17 01:24:00 Lick, Sco tt [facility] POCT GLUCOSE (AUTOMATED) 2023-03-16 16:24:00 Lick, Sco tt [facility] POCT GLUCOSE (AUTOMATED) 2023-03-16 16:24:00 Lick, Sco tt [facility] POCT GLUCOSE (AUTOMATED) 2023-03-16 16:24:00 Lick, Jasviro [facility] BASIC METABOLIC PANEL (NA, K, CL, CO2, GLUCOSE, BUN, CREATININE, CA) 2023-03-16 11:16:00 Ashwin Fried Hunter [facility] MAGNESIUM 2023-03-16 11:16:00 Bertha Fried [facility] PHOSPHORUS 2023-03-16 11:16:00 Bertha Fried [facility] PHOSPHORUS 2023-03-16 11:16:00 Bertha Fried [facility] MAGNESIUM 2023-03-16 11:16:00 Bertha Fried [facility] BASIC METABOLIC PANEL (NA, K, CL, CO2, GLUCOSE, BUN, CREATININE, CA) 2023-03-16 11:16:00 Ashwin Fried Hunter [facility] PHOSPHORUS 2023-03-16 11:16:00 Bertha Fried [facility] MAGNESIUM 2023-03-16 11:16:00 Bertha Fried [facility] BASIC METABOLIC PANEL (NA, K, CL, CO2, GLUCOSE, BUN, CREATININE, CA) 2023-03-16 11:16:00 Ashwin Fried Hunter [facility] POCT GLUCOSE (AUTOMATED) 2023-03-16 11:14:00 Lick, Jasviro [facility] POCT GLUCOSE (AUTOMATED) 2023-03-16 11:14:00 TeresakBlessing [facility] POCT GLUCOSE (AUTOMATED) 2023-03-16 11:14:00 LickJasviro tt [facility] POCT GLUCOSE (AUTOMATED) 2023-03-16 05:20:00 LickJasviro tt [facility] POCT GLUCOSE (AUTOMATED) 2023-03-16 05:20:00 LickJasviro tt [facility] POCT GLUCOSE (AUTOMATED) 2023-03-16 05:20:00 LickJasviro tt [facility] POCT GLUCOSE (AUTOMATED) 2023-03-16 00:55:00 LickJasviro tt [facility] POCT GLUCOSE (AUTOMATED) 2023-03-16 00:55:00 LickJasviro tt [facility] POCT GLUCOSE (AUTOMATED) 2023-03-16 00:55:00 TeresakJasviro tt [facility] POCT GLUCOSE (AUTOMATED) 2023-03-15 23:14:00 LickBlessing tt [facility] POCT GLUCOSE (AUTOMATED) 2023-03-15 23:14:00 LickJasviro tt [facility] POCT GLUCOSE (AUTOMATED) 2023-03-15 23:14:00 LickBlessing tt [facility] POCT GLUCOSE (AUTOMATED) 2023-03-15 17:23:00 TeresakJasviro tt [facility] POCT GLUCOSE (AUTOMATED) 2023-03-15 17:23:00 Lick Jasviro tt [facility] POCT GLUCOSE (AUTOMATED) 2023-03-15 17:23:00 Lick, Jasviro tt [facility] POCT GLUCOSE (AUTOMATED) 2023-03-15 09:11:00 Lick Jasviro tt [facility] POCT GLUCOSE (AUTOMATED) 2023-03-15 09:11:00 Lick Jasviro tt [facility] POCT GLUCOSE (AUTOMATED) 2023-03-15 09:11:00 Lick Jasviro tt [facility] POCT GLUCOSE (AUTOMATED) 2023-03-15 05:13:00 Lick Jasviro tt [facility] POCT GLUCOSE (AUTOMATED) 2023-03-15 05:13:00 Lick, Sco tt [facility] POCT GLUCOSE (AUTOMATED) 2023-03-15 05:13:00 Lick, Sco tt [facility] POCT GLUCOSE (AUTOMATED) 2023-03-15 00:51:00 Lick, Sco tt [facility] POCT GLUCOSE (AUTOMATED) 2023-03-15 00:51:00 Lick, Sco tt [facility] POCT GLUCOSE (AUTOMATED) 2023-03-15 00:51:00 Lick, Sco tt [facility] POCT GLUCOSE (AUTOMATED) 2023-03-14 17:58:00 Lick, Sco tt [facility] POCT GLUCOSE (AUTOMATED) 2023-03-14 17:58:00 Lick, Sco tt [facility] POCT GLUCOSE (AUTOMATED) 2023-03-14 17:58:00 Lick, Sco tt [facility] POCT GLUCOSE (AUTOMATED) 2023-03-14 13:48:00 Lick, Sco tt [facility] POCT GLUCOSE (AUTOMATED) 2023-03-14 13:48:00 Lick, Sco tt [facility] POCT GLUCOSE (AUTOMATED) 2023-03-14 13:48:00 Lick, Sco tt [facility] BASIC METABOLIC PANEL (NA, K, CL, CO2, GLUCOSE, BUN, CREATININE, CA) 2023-03-14 08:44:00 [facility] WITH [facility]FF 2023-03-14 08:44:00 [facility] BASIC METABOLIC PANEL (NA, K, CL, CO2, GLUCOSE, BUN, CREATININE, CA) 2023-03-14 08:44:00 [facility] 2023-03-14 08:44:00 Felipe reyes [facility] BASIC METABOLIC PANEL (NA, K, CL, CO2, GLUCOSE, BUN, CREATININE, CA) 2023-03-14 08:44:00 Beka Correiadro [facility] CBC WITH DIFF 2023-03-14 08:44:00 Beka [facility]acia [facility] (AUTOMATED) 2023-03-14 04:53:00 Lick, Sco tt [facility] POCT GLUCOSE (AUTOMATED) 2023-03-14 04:53:00 Lick, Sco tt [facility] POCT GLUCOSE (AUTOMATED) 2023-03-14 04:53:00 Lick, Sco tt [facility] POCT GLUCOSE (AUTOMATED) 2023-03-14 02:08:00 Lick, Sco tt [facility] POCT GLUCOSE (AUTOMATED) 2023-03-14 02:08:00 Lick, Sco tt [facility] POCT GLUCOSE (AUTOMATED) 2023-03-14 02:08:00 Lick, Sco tt [facility] POCT GLUCOSE (AUTOMATED) 2023-03-13 21:55:00 Lick, Sco tt [facility] POCT GLUCOSE (AUTOMATED) 2023-03-13 21:55:00 Lick, Sco tt [facility] POCT GLUCOSE (AUTOMATED) 2023-03-13 21:55:00 Lick, Sco tt [facility] POCT GLUCOSE (AUTOMATED) 2023-03-13 17:35:00 Lick, Sco tt [facility] POCT GLUCOSE (AUTOMATED) 2023-03-13 17:35:00 Lick, Sco tt [facility] POCT GLUCOSE (AUTOMATED) 2023-03-13 17:35:00 Lick, Sco tt [facility] POCT GLUCOSE (AUTOMATED) 2023-03-13 14:48:00 Lick, Sco tt [facility] POCT GLUCOSE (AUTOMATED) 2023-03-13 14:48:00 Lick, Sco tt [facility] POCT GLUCOSE (AUTOMATED) 2023-03-13 14:48:00 Lick, Sco tt [facility] XR CHEST 1 VW 2023-03-13 10:35:00 [facility] 2023-03-13 10:35:[address] [facility] XR CHEST 1 VW 2023-03-13 10:35:[address] [facility] CBC WITH DIFF 2023-03-13 07:43:00 Keven Alexandre [facility] BASIC METABOLIC PANEL (NA, K, CL, CO2, GLUCOSE, BUN, CREATININE, CA) 2023-03-13 07:43:00 Zeyad Alexandre [facility] MAGNESIUM 2023-03-13 07:43:00 Keven Alexandre [facility] PHOSPHORUS 2023-03-13 07:43:00 Keven Alexandre [facility] PHOSPHORUS 2023-03-13 07:43:00 Keven Alexandre [facility] MAGNESIUM 2023-03-13 07:43:00 Keven Alexandre [facility] BASIC METABOLIC PANEL (NA, K, CL, CO2, GLUCOSE, BUN, CREATININE, CA) 2023-03-13 07:43:00 Zeyad Alexandre [facility] CBC WITH DIFF 2023-03-13 07:43:00 Keven Alexandre [facility] PHOSPHORUS 2023-03-13 07:43:00 Keven Alexandre [facility] MAGNESIUM 2023-03-13 07:43:00 Keven Alexandre [facility] BASIC METABOLIC PANEL (NA, K, CL, CO2, GLUCOSE, BUN, CREATININE, CA) 2023-03-13 07:43:00 Zeyad Alexandre [facility] CBC WITH DIFF 2023-03-13 07:43:00 Keven Alexandre [facility] POCT GLUCOSE (AUTOMATED) 2023-03-13 04:15:00 Lick, Jasviro tt [facility] POCT GLUCOSE (AUTOMATED) 2023-03-13 04:15:00 Lick, Sco tt [facility] POCT GLUCOSE (AUTOMATED) 2023-03-13 04:15:00 Lick, Sco tt [facility] POCT GLUCOSE (AUTOMATED) 2023-03-13 01:32:00 Lick, Jasviro tt [facility] POCT GLUCOSE (AUTOMATED) 2023-03-13 01:32:00 LickJasviro tt [facility] POCT GLUCOSE (AUTOMATED) 2023-03-13 01:32:00 Lick, Jasviro tt [facility] POCT GLUCOSE (AUTOMATED) 2023-03-12 22:10:00 LickJasviro tt [facility] POCT GLUCOSE (AUTOMATED) 2023-03-12 22:10:00 Lick, Jasviro tt [facility] POCT GLUCOSE (AUTOMATED) 2023-03-12 22:10:00 TeresakJasviro tt [facility] MODIFIED BARIUM SWALLOW 2023-03-12 19:52:00 Chitra Berkowitz [facility] MODIFIED BARIUM SWALLOW 2023-03-12 19:52:00 Chitra Berkowitz [facility] MODIFIED BARIUM SWALLOW 2023-03-12 19:52:00 Chitra Berkowitz [facility] POCT GLUCOSE (AUTOMATED) 2023-03-12 18:18:00 LickJasviro alfred [facility] POCT GLUCOSE (AUTOMATED) 2023-03-12 18:18:00 LickJasviro alfred [facility] POCT GLUCOSE (AUTOMATED) 2023-03-12 18:18:00 Lick, Jasviro tt [facility] POCT GLUCOSE (AUTOMATED) 2023-03-12 12:57:00 LickJasviro alfred [facility] POCT GLUCOSE (AUTOMATED) 2023-03-12 12:57:00 Lick, Jasviro tt [facility] POCT GLUCOSE (AUTOMATED) 2023-03-12 12:57:00 LickJasviro alfred [facility] CBC WITH DIFF 2023-03-12 08:47:00 Chitra Berkowitz [facility] BASIC METABOLIC PANEL (NA, K, CL, CO2, GLUCOSE, BUN, CREATININE, CA) 2023-03-12 08:47:00 Chitra Berkowitz [facility] MAGNESIUM 2023-03-12 08:47:00 Dunmire, Chitra [facility] PHOSPHORUS 2023-03-12 08:47:00 DunmiChitra anthony [facility] CALCIUM 2023-03-12 08:47:00 Vu [facility] CALCIUM 2023-03-12 08:47:00 Vu [facility] PHOSPHORUS 2023-03-12 08:47:00 DunmireChitra [facility] MAGNESIUM 2023-03-12 08:47:00 DunmiChitra anthony [facility] BASIC METABOLIC PANEL (NA, K, CL, CO2, GLUCOSE, BUN, CREATININE, CA) 2023-03-12 08:47:00 DunmirajChitra [facility] CBC WITH DIFF 2023-03-12 08:47:00 DunmireChitra [facility] CALCIUM 2023-03-12 08:47:00 Vu [facility] PHOSPHORUS 2023-03-12 08:47:00 DunmireChitra [facility] MAGNESIUM 2023-03-12 08:47:00 DunmireChitra [facility] BASIC METABOLIC PANEL (NA, K, CL, CO2, GLUCOSE, BUN, CREATININE, CA) 2023-03-12 08:47:00 DunmireChitra [facility] CBC WITH DIFF 2023-03-12 08:47:00 DunmirajChitra [facility] POCT GLUCOSE (AUTOMATED) 2023-03-12 08:44:00 Lick, Sco tt [facility] POCT GLUCOSE (AUTOMATED) 2023-03-12 08:44:00 Lick, Sco tt [facility] POCT GLUCOSE (AUTOMATED) 2023-03-12 08:44:00 Lick, Sco tt [facility] POCT GLUCOSE (AUTOMATED) 2023-03-12 04:13:00 Lick, Sco tt [facility] POCT GLUCOSE (AUTOMATED) 2023-03-12 04:13:00 Lick, Sco tt [facility] POCT GLUCOSE (AUTOMATED) 2023-03-12 04:13:00 Lick, Sco tt [facility] POCT GLUCOSE (AUTOMATED) 2023-03-12 01:45:00 Lick, Sco tt [facility] POCT GLUCOSE (AUTOMATED) 2023-03-12 01:45:00 Lick, Sco tt [facility] POCT GLUCOSE (AUTOMATED) 2023-03-12 01:45:00 Lick, Sco tt [facility] POCT GLUCOSE (AUTOMATED) 2023-03-12 01:42:00 Lick, Sco tt [facility] POCT GLUCOSE (AUTOMATED) 2023-03-12 01:42:00 Lick, Sco tt [facility] POCT GLUCOSE (AUTOMATED) 2023-03-12 01:42:00 Lick, Jasviro tt [facility] CBC WITH DIFF 2023-03-11 21:20:00 Dunmiraj [facility] CBC WITH DIFF 2023-03-11 21:20:00 TaramireChitra [facility] CBC WITH DIFF 2023-03-11 21:20:00 TaramireChitra [facility] POCT GLUCOSE (AUTOMATED) 2023-03-11 21:14:00 Lick, Jasviro tt [facility] POCT GLUCOSE (AUTOMATED) 2023-03-11 21:14:00 Lick, Sco tt [facility] POCT GLUCOSE (AUTOMATED) 2023-03-11 21:14:00 Lick, Jasviro tt [facility] POCT GLUCOSE (AUTOMATED) 2023-03-11 17:46:00 Lick, Sco tt [facility] POCT GLUCOSE (AUTOMATED) 2023-03-11 17:46:00 Lick, Sco tt [facility] POCT GLUCOSE (AUTOMATED) 2023-03-11 17:46:00 Lick, Sco tt [facility] BLOOD CULTURE SCREEN 2023-03-11 14:50:00 Jonathon [facility] BLOOD CULTURE SCREEN 2023-03-11 14:50:00 [facility]03-11 14:50[facility]00 [facility] 2023-03-11 14:49:00 Jonathon Emily [facility] BLOOD CULTURE SCREEN 2023-03-11 14:49:00 [facility] 2023-03-11 14:49:00 Jonathon Emily [facility] POCT GLUCOSE (AUTOMATED) 2023-03-11 13:14:00 Lick, Sco tt [facility] POCT GLUCOSE (AUTOMATED) 2023-03-11 13:14:00 Lick, Sco tt [facility] POCT GLUCOSE (AUTOMATED) 2023-03-11 13:14:00 Lick, Sco tt [facility] POCT GLUCOSE (AUTOMATED) 2023-03-11 09:08:00 Lick, Sco tt [facility] POCT GLUCOSE (AUTOMATED) 2023-03-11 09:08:00 Lick, Sco tt [facility] POCT GLUCOSE (AUTOMATED) 2023-03-11 09:08:00 Lick, Sco tt [facility] BASIC METABOLIC PANEL (NA, K, CL, CO2, GLUCOSE, BUN, CREATININE, CA) 2023-03-11 09:05:00 Emily Holt [facility] CBC WITHOUT DIFF 2023-03-11 09:05:00 Agustín Alexandre [facility] MAGNESIUM 2023-03-11 09:05:00 [facility]-11 09:05:00 [facility] 2023-03-11 09:05:00 [facility] 2023-03-11 09:05:00 [facility] BASIC METABOLIC PANEL (NA, K, CL, CO2, GLUCOSE, BUN, CREATININE, CA) 2023-03-11 09:05:00 Emily Holt [facility] CBC WITHOUT DIFF 2023-03-11 09:05:00 Agustín Alexandre [facility] PHOSPHORUS 2023-03-11 09:05:00 Marilyn Noe [facility] MAGNESIUM 2023-03-11 09:05:00 Marilyn Noe [facility] BASIC METABOLIC PANEL (NA, K, CL, CO2, GLUCOSE, BUN, CREATININE, CA) 2023-03-11 09:05:00 Emily Holt [facility] CBC WITHOUT DIFF 2023-03-11 09:05:00 Agustín Alexandre [facility] POCT GLUCOSE (AUTOMATED) 2023-03-11 05:48:00 LickBlessing [facility] POCT GLUCOSE (AUTOMATED) 2023-03-11 05:48:00 LickJasviro alfred [facility] POCT GLUCOSE (AUTOMATED) 2023-03-11 05:48:00 Blessing Long [facility] CBC WITHOUT DIFF 2023-03-11 01:21:00 [facility] 2023-03-11 01:21:00 Agustín Alexandre [facility] CBC WITHOUT DIFF 2023-03-11 01:21:00 Agustín Alexandre [facility] POCT GLUCOSE (AUTOMATED) 2023-03-11 01:19:00 TeresakBlessing [facility] POCT GLUCOSE (AUTOMATED) 2023-03-11 01:19:00 TeresakJasviro alfred [facility] POCT GLUCOSE (AUTOMATED) 2023-03-11 01:19:00 LickJasviro alfred [facility] POCT GLUCOSE (AUTOMATED) 2023-03-10 22:01:00 Lick, Jasviro tt [facility] POCT GLUCOSE (AUTOMATED) 2023-03-10 22:01:00 LickJasviro tt [facility] POCT GLUCOSE (AUTOMATED) 2023-03-10 22:01:00 LickJasviro tt [facility] PREPARE PACKED RBC 2023-03-10 19:23:48 Emily Holt [facility] PREPARE PACKED RBC 2023-03-10 19:23:48 Emily Holt Un [facility] PREPARE PACKED RBC 2023-03-10 19:23:48 [facility]23-03-10 18:13:00 Emily Holt [facility] BASIC METABOLIC PANEL (NA, K, CL, CO2, GLUCOSE, BUN, CREATININE, CA) 2023-03-10 18:13:00 [facility] 2023-03-10 18:13:00 Emily Holt [facility] MAGNESIUM 2023-03-10 18:13[facility] (NA, K, CL, CO2, GLUCOSE, BUN, CREATININE, CA) 2023-03-10 18:13:00 [facility] 2023-03-10 18:13:00 Emily Holt [facility] MAGNESIUM 2023-03-10 18:13:00 [facility]IC PANEL (NA, K, CL, CO2, GLUCOSE, BUN, CREATININE, CA) 2023-03-10 18:13:00 [facility] 2023-03-10 18:13:00 Emily Holt [facility] POCT GLUCOSE (AUTOMATED) 2023-03-10 17:18:00 Lick, Jasviro tt [facility] POCT GLUCOSE (AUTOMATED) 2023-03-10 17:18:00 Lick, Sco tt [facility] POCT GLUCOSE (AUTOMATED) 2023-03-10 17:18:00 Lick, Sco tt [facility] CBC WITHOUT DIFF 2023-03-10 17:14:00 Agustín Alexandre [employer] [facility] CBC WITHOUT DIFF 2023-03-10 17:14:00 Agustín Alexandre [employer] [facility] CBC WITHOUT DIFF 2023-03-10 17:14:00 Agustín Alexandre [employer] [facility] POCT GLUCOSE (AUTOMATED) 2023-03-10 12:49:00 Lick, Sco tt [facility] POCT GLUCOSE (AUTOMATED) 2023-03-10 12:49:00 TreesakBlessing [facility] POCT GLUCOSE (AUTOMATED) 2023-03-10 12:49:00 TeresakBlessing [facility] XR CHEST 1 VW 2023-03-10 09:29[facility]10 09:29[facility] 2023-03-10 09:29:00 [facility] DIFF 2023-03-10 08:41:00 Agustín Alexandre [facility] BASIC METABOLIC PANEL (NA, K, CL, CO2, GLUCOSE, BUN, CREATININE, CA) 2023-03-10 08:41:00 Aminata [facility] BASIC METABOLIC PANEL (NA, K, CL, CO2, GLUCOSE, BUN, CREATININE, CA) 2023-03-10 08:41:00 Aminata [facility] CBC WITHOUT DIFF 2023-03-10 08:41:00 Agustín Alexandre [facility] BASIC METABOLIC PANEL (NA, K, CL, CO2, GLUCOSE, BUN, CREATININE, CA) 2023-03-10 08:41[facility] 2023-03-10 08:41:00 Agustín Alexandre [facility] POCT GLUCOSE (AUTOMATED) 2023-03-10 05:14:00 LickJasviro alfred [facility] POCT GLUCOSE (AUTOMATED) 2023-03-10 05:14:00 LickJasviro alfred [facility] POCT GLUCOSE (AUTOMATED) 2023-03-10 05:14:00 TeresakBlessing [facility] TRANSFUSE PACKED RBC 2023-03-10 02:40:00 Zeyad Alexandre [employer] [facility] TRANSFUSE PACKED RBC 2023-03-10 02:40:00 Zeyad Alexandre [employer] [facility] TRANSFUSE PACKED RBC 2023-03-10 02:40:00 Zeyad Alexandre [employer] [facility] PREPARE PACKED RBC 2023-03-10 02:33:25 Tori Alexandre [employer] [facility] PREPARE PACKED RBC 2023-03-10 02:33:25 Tori Alexandre [facility] PREPARE PACKED RBC 2023-03-10 02:33:25 Tori Alexandre [employer] [facility] CBC WITHOUT DIFF 2023-03-10 01:43:00 Agustín Alexandre [facility] CBC WITHOUT DIFF 2023-03-10 01:43:00 Agustín Alexandre [facility] CBC WITHOUT DIFF 2023-03-10 01:43:00 Agustín Alexandre [facility] POCT GLUCOSE (AUTOMATED) 2023-03-10 01:06:00 Lick, Jasviro tt [facility] POCT GLUCOSE (AUTOMATED) 2023-03-10 01:06:00 LickJasviro tt [facility] POCT GLUCOSE (AUTOMATED) 2023-03-10 01:06:00 Lick, Sco tt [facility] POCT GLUCOSE (AUTOMATED) 2023-03-09 21:47:00 Lick, Jasviro tt [facility] POCT GLUCOSE (AUTOMATED) 2023-03-09 21:47:00 Lick, Sco tt [facility] POCT GLUCOSE (AUTOMATED) 2023-03-09 21:47:00 Lick, Sco tt [facility] CBC WITHOUT DIFF 2023-03-09 17:43:00 Agustín Alexandre [facility] CBC WITHOUT DIFF 2023-03-09 17:43:00 Agustín Alexandre [facility] CBC WITHOUT DIFF 2023-03-09 17:43:00 Agustín Alexandre [facility] POCT GLUCOSE (AUTOMATED) 2023-03-09 17:22:00 Lick, Sco tt [facility] POCT GLUCOSE (AUTOMATED) 2023-03-09 17:22:00 Lick, Sco tt [facility] POCT GLUCOSE (AUTOMATED) 2023-03-09 17:22:00 Lick, Sco tt [facility] HEPATITIS B SURFACE ANTIBODY 2023-03-09 14:04:00 Chance Prattuhair [facility] HEPATITIS B SURFACE ANTIBODY 2023-03-09 14:04:00 Chance Prattuhair [facility] HEPATITIS B SURFACE ANTIBODY 2023-03-09 14:04:00 Chance Prattuhair [facility] POCT GLUCOSE (AUTOMATED) 2023-03-09 14:01:00 Lick, Sco tt [facility] POCT GLUCOSE (AUTOMATED) 2023-03-09 14:01:00 Lick, Sco tt [facility] POCT GLUCOSE (AUTOMATED) 2023-03-09 14:01:00 Lick, Sco tt [facility] BASIC METABOLIC PANEL (NA, K, CL, CO2, GLUCOSE, BUN, CREATININE, CA) 2023-03-09 09:29:00 Dunmire [facility] MAGNESIUM 2023-03-09 09:29:00 Dunmire [facility] PHOSPHORUS 2023-03-09 09:29:00 Dunmire [facility] CBC WITH DIFF 2023-03-09 09:29:00 Dunmiraj [facility] AC PANEL 20 + LACTIC ACID 2023-03-09 09:29:00 Shreya Sims [facility] HEPATITIS B SURFACE ANTIGEN 2023-03-09 09:29:00 Chance Prattuhair [facility] PHOSPHORUS 2023-03-09 09:29:00 DunmireChitra [facility] MAGNESIUM 2023-03-09 09:29:00 Dunmiraj [facility] BASIC METABOLIC PANEL (NA, K, CL, CO2, GLUCOSE, BUN, CREATININE, CA) 2023-03-09 09:29:00 Dunmire [facility] CBC WITH DIFF 2023-03-09 09:29:00 Dunmiraj [facility] HEPATITIS B SURFACE ANTIGEN 2023-03-09 09:29:00 Chance Pratt [facility] AC PANEL 20 + LACTIC ACID 2023-03-09 09:29:00 Levi [facility] PHOSPHORUS 2023-03-09 09:29:00 Woo Chitra [facility] MAGNESIUM 2023-03-09 09:29:00 Woo Chitra [facility] BASIC METABOLIC PANEL (NA, K, CL, CO2, GLUCOSE, BUN, CREATININE, CA) 2023-03-09 09:29:00 Woo Chitra [facility] CBC WITH DIFF 2023-03-09 09:29:00 Woo [facility] HEPATITIS B SURFACE ANTIGEN 2023-03-09 09:29:00 Chance Prattuhair [facility] AC PANEL 20 + LACTIC ACID 2023-03-09 09:29:00 Levi [facility] POCT GLUCOSE (AUTOMATED) 2023-03-09 06:21:00 Lick, Sco tt [facility] POCT GLUCOSE (AUTOMATED) 2023-03-09 06:21:00 Lick, Sco tt [facility] POCT GLUCOSE (AUTOMATED) 2023-03-09 06:21:00 Lick, Sco tt [facility] CBC WITH DIFF 2023-03-09 01:43:00 Chitra Berkowitz [facility] BASIC METABOLIC PANEL (NA, K, CL, CO2, GLUCOSE, BUN, CREATININE, CA) 2023-03-09 01:43:00 [facility] + LACTIC ACID 2023-03-09 01:43:00 Levi [facility] BASIC METABOLIC PANEL (NA, K, CL, CO2, GLUCOSE, BUN, CREATININE, CA) 2023-03-09 01:43:00 [facility]FF 2023-03-09 01:43:00 Chitra Berkowitz [facility] AC PANEL 20 + LACTIC ACID 2023-03-09 01:43:00 Levi [facility] BASIC METABOLIC PANEL (NA, K, CL, CO2, GLUCOSE, BUN, CREATININE, CA) 2023-03-09 01:43:00 Emily Holt [facility] CBC WITH DIFF 2023-03-09 01:43:00 Chitra Berkowitz [facility] AC PANEL 20 + LACTIC ACID 2023-03-09 01:43:00 Shreya Sims [facility] POCT GLUCOSE (AUTOMATED) 2023-03-09 01:42:00 Lick, Sco tt [facility] POCT GLUCOSE (AUTOMATED) 2023-03-09 01:42:00 Lick, Sco tt [facility] POCT GLUCOSE (AUTOMATED) 2023-03-09 01:42:00 Lick, Sco tt [facility] POCT GLUCOSE (AUTOMATED) 2023-03-08 21:52:00 Lick, Sco tt [facility] POCT GLUCOSE (AUTOMATED) 2023-03-08 21:52:00 Lick, Sco tt [facility] POCT GLUCOSE (AUTOMATED) 2023-03-08 21:52:00 Lick, Sco tt [facility] CBC WITH DIFF 2023-03-08 21:50:00 Chitra Berkowitz Beverly [facility] CBC WITH DIFF 2023-03-08 21:50:00 TaramireChitra Beverly [facility] CBC WITH DIFF 2023-03-08 21:50:00 Chitra Berkowitz Beverly [facility] POCT GLUCOSE (AUTOMATED) 2023-03-08 13:36:00 Lick, Sco tt [facility] POCT GLUCOSE (AUTOMATED) 2023-03-08 13:36:00 Lick, Sco tt [facility] POCT GLUCOSE (AUTOMATED) 2023-03-08 13:36:00 Lick, Sco tt [facility] CBC WITH DIFF 2023-03-08 13:21:00 [facility] 2023-03-08 13:21:00 [facility]vi [facility] WITH DIFF 2023-03-08 13:21:00 Levi [facility] POCT GLUCOSE (AUTOMATED) 2023-03-08 10:53:00 LickJasviro tt [facility] POCT GLUCOSE (AUTOMATED) 2023-03-08 10:53:00 LickJasviro tt [facility] POCT GLUCOSE (AUTOMATED) 2023-03-08 10:53:00 Lick, Jasviro tt [facility] BASIC METABOLIC PANEL (NA, K, CL, CO2, GLUCOSE, BUN, CREATININE, CA) 2023-03-08 10:52:00 [facility]-08 10:52:00 [facility] PHOS[facility]US 2023-03-08 10:52:00 [facility] PHOSPHORUS 2023-03-08 10:52:00 [facility] MAGNESIUM 2023-03-08 10:52:00 [facility] BASIC METABOLIC PANEL (NA, K, CL, CO2, GLUCOSE, BUN, CREATININE, CA) 2023-03-08 10:52:00 Jonathon [facility] PHOSPHORUS 2023-03-08 10:52:00 [facility] MAGNESIUM 2023-03-08 10:52:00 [facility] BASIC METABOLIC PANEL (NA, K, CL, CO2, GLUCOSE, BUN, CREATININE, CA) 2023-03-08 10:52:00 [facility] 2023-03-08 09:11:00 Jackie Zamudio [facility] XR CHEST 1 VW 2023-03-08 09:11:00 Robb Jackie [facility] XR CHEST 1 VW 2023-03-08 09:11:00 Robb Jackie [facility] POCT GLUCOSE (AUTOMATED) 2023-03-08 05:51:00 LickJasviro tt [facility] POCT GLUCOSE (AUTOMATED) 2023-03-08 05:51:00 LickJasviro tt [facility] POCT GLUCOSE (AUTOMATED) 2023-03-08 05:51:00 Lick, Sco tt [facility] CBC WITH DIFF 2023-03-08 05:50:00 Vu, [facility] CBC WITH DIFF 2023-03-08 05:50:00 Vu, [facility] CBC WITH DIFF 2023-03-08 05:50:00 Vu, [facility] OCCULT (GUAIAC) BLOOD 2023-03-08 04:05:00 Vu, [facility] OCCULT (GUAIAC) BLOOD 2023-03-08 04:05:00 Vu, [facility] OCCULT (GUAIAC) BLOOD 2023-03-08 04:05:00 Vu, [facility] AC PANEL 20 + LACTIC ACID 2023-03-08 01:55:00 Vu, [facility] AC PANEL 20 + LACTIC ACID 2023-03-08 01:55:00 Vu, [facility] AC PANEL 20 + LACTIC ACID 2023-03-08 01:55:00 Vu, [facility] CBC WITH DIFF 2023-03-08 01:52:[address] [facility] CBC WITH DIFF 2023-03-08 01:52:[address] [facility] CBC WITH DIFF 2023-03-08 01:52:[address] [facility] POCT GLUCOSE (AUTOMATED) 2023-03-08 01:51:00 Lick, Jasviro tt [facility] POCT GLUCOSE (AUTOMATED) 2023-03-08 01:51:00 LickJasviro tt [facility] POCT GLUCOSE (AUTOMATED) 2023-03-08 01:51:00 LickJasviro tt [facility] PREPARE PACKED RBC 2023-03-08 00:21:37 VuLeathah Un [facility] PREPARE PACKED RBC 2023-03-08 00:21:37 [facility] 2023-03-08 00:21:37 [facility]) 2023-03-07 21:55:00 LicBlessing garcia [facility] POCT GLUCOSE (AUTOMATED) 2023-03-07 21:55:00 LickJasviro alfred [facility] POCT GLUCOSE (AUTOMATED) 2023-03-07 21:55:00 LicBlessing garcia [facility] BLOOD CULTURE SCREEN 2023-03-07 21:15:00 Zeyad Alexandre [facility] BLOOD CULTURE SCREEN 2023-03-07 21:15:00 Zeyad Alexandre [facility] BLOOD CULTURE SCREEN 2023-03-07 21:15:00 Zeyad Alexandre [facility] VANCOMYCIN RANDOM LEVEL 2023-03-07 18:31:00 Lick, Scot [facility] CBC WITH DIFF 2023-03-07 18:31:[address] [facility] VANCOMYCIN RANDOM LEVEL 2023-03-07 18:31:00 Lick, Scot [facility] CBC WITH DIFF 2023-03-07 18:31:[address] [facility] VANCOMYCIN RANDOM LEVEL 2023-03-07 18:31:00 Lick, Scot [facility] CBC WITH DIFF 2023-03-07 18:31:[address] [facility] POCT GLUCOSE (AUTOMATED) 2023-03-07 18:28:00 LickBlessing [facility] POCT GLUCOSE (AUTOMATED) 2023-03-07 18:28:00 LickJasviro tt [facility] POCT GLUCOSE (AUTOMATED) 2023-03-07 18:28:00 LickBlessing [facility] BLOOD CULTURE SCREEN 2023-03-07 15:26:00 Zeyad Alexandre [facility] FUNGUS (BLOOD) CULTURE 2023-03-07 15:26:00 Zeyad Salmeron [facility] BLOOD CULTURE SCREEN 2023-03-07 15:26:00 Zeyad Alexandre [facility] FUNGUS (BLOOD) CULTURE 2023-03-07 15:26:00 Zeyad Salmeron [employer] [facility] BLOOD CULTURE SCREEN 2023-03-07 15:26:00 Zeyad Alexandre [facility] FUNGUS (BLOOD) CULTURE 2023-03-07 15:26:00 Zeyad Salmeron [employer] [facility] POCT GLUCOSE (AUTOMATED) 2023-03-07 15:02:00 LickJasviro tt [facility] POCT GLUCOSE (AUTOMATED) 2023-03-07 15:02:00 Lick, Jasviro tt [facility] POCT GLUCOSE (AUTOMATED) 2023-03-07 15:02:00 LickJasviro tt [facility] XR CHEST 1 VW 2023-03-07 09:26[facility] 2023-03-07 09:26:00 Robb [facility] XR CHEST 1 VW 2023-03-07 09:26:00 Robb [facility] AC PANEL 20 + LACTIC ACID 2023-03-07 09:13:00 Levi [facility] AC PANEL 20 + LACTIC ACID 2023-03-07 09:13:00 Levi [facility] AC PANEL 20 + LACTIC ACID 2023-03-07 09:13:00 [facility] POCT GLUCOSE (AUTOMATED) 2023-03-07 08:59:00 LickJasviro [facility] POCT GLUCOSE (AUTOMATED) 2023-03-07 08:59:00 Lick, Jasviro tt [facility] POCT GLUCOSE (AUTOMATED) 2023-03-07 08:59:00 LickJasviro tt [facility] CBC WITH DIFF 2023-03-07 08:56:[address] [facility] BASIC METABOLIC PANEL (NA, K, CL, CO2, GLUCOSE, BUN, CREATININE, CA) 2023-03-07 08:56:00 Emily Holt [facility] MAGNESIUM 2023-03-07 08:56:00 [facility]-07 08:56[facility]00 [facility] 2023-03-07 08:56:00 Alexus [facility] FIBRINOGEN 2023-03-07 08:56:00 Alexus [facility] PROTHROMBIN TIME / INR 2023-03-07 08:56:00 Alexus [facility] ACTIVATED PARTIAL THRMPLAS LAURI 2023-03-07 08:56:00 Alexus [facility] PHOSPHORUS 2023-03-07 08:56:00 [facility] 2023-03-07 08:56:00 [facility] BASIC METABOLIC PANEL (NA, K, CL, CO2, GLUCOSE, BUN, CREATININE, CA) 2023-03-07 08:56:00 [facility] 2023-03-07 08:56:00 [facility] 2023-03-07 08:56:00 Alexus [facility] D-DIMER 2023-03-07 08:56:00 Alexus [facility] ACTIVATED PARTIAL THRMPLAS LAURI 2023-03-07 08:56:00 Alexus [facility] FIBRINOGEN 2023-03-07 08:56:00 Alexus [facility] PHOSPHORUS 2023-03-07 08:56:00 [facility]23-03-07 08:56:00 [facility]OLIC PANEL (NA, K, CL, CO2, GLUCOSE, BUN, CREATININE, CA) 2023-03-07 08:56:00 Jonathon [facility] CBC WITH DIFF 2023-03-07 08:56:00 [facility] / INR 2023-03-07 08:56:00 Alexus [facility] D-DIMER 2023-03-07 08:56:00 Alexus [facility] ACTIVATED PARTIAL THRMPLAS LAURI 2023-03-07 08:56:00 Alexus [facility] FIBRINOGEN 2023-03-07 08:56:00 Alexus [facility] AC PANEL 20 + LACTIC ACID 2023-03-07 04:09:00 Vu, [facility] AC PANEL 20 + LACTIC ACID 2023-03-07 04:09:00 Vu, [facility] AC PANEL 20 + LACTIC ACID 2023-03-07 04:09:00 Vu, [facility] AC PANEL 20 + LACTIC ACID 2023-03-07 02:08:00 Vu, [facility] AC PANEL 20 + LACTIC ACID 2023-03-07 02:08:00 Vu, [facility] AC PANEL 20 + LACTIC ACID 2023-03-07 02:08:00 Vu, [facility] POCT GLUCOSE (AUTOMATED) 2023-03-07 01:39:00 Lick, Sco tt [facility] POCT GLUCOSE (AUTOMATED) 2023-03-07 01:39:00 Lick, Sco tt [facility] POCT GLUCOSE (AUTOMATED) 2023-03-07 01:39:00 Lick, Sco tt [facility] XR KUB 2023-03-07 01:00:00 Alexus [facility] XR KUB 2023-03-07 01:00:00 Alexus [facility] XR KUB 2023-03-07 01:00:00 Isaac Vaughan [facility] ARTERIAL LINE 2023-03-06 23:20:00 Isaac Vaughan [facility] ARTERIAL LINE 2023-03-06 23:20:00 Isaac Vaughan [facility] POCT GLUCOSE (AUTOMATED) 2023-03-06 22:49:00 Lick, Sco tt [facility] POCT GLUCOSE (AUTOMATED) 2023-03-06 22:49:00 Lick, Pro [facility] POCT GLUCOSE (AUTOMATED) 2023-03-06 22:49:00 Lick, Jasviro tt [facility] CBC WITH DIFF 2023-03-06 19:57:[address] [facility] CBC WITH DIFF 2023-03-06 19:57:[address] [facility] CBC WITH DIFF 2023-03-06 19:57:[address] [facility] TRANSESOPHAGEAL ECHO (RONI) COMPLETE W/ DOPPLER AND COLOR 2023-03-06 18:47:00 Vu, [facility] TRANSESOPHAGEAL ECHO (RONI) COMPLETE W/ DOPPLER AND COLOR 2023-03-06 18:47:00 Levi, [facility] TRANSESOPHAGEAL ECHO (RONI) COMPLETE W/ DOPPLER AND COLOR 2023-03-06 18:47:00 Levi, [facility] POCT GLUCOSE (AUTOMATED) 2023-03-06 17:48:00 Lick, Jasviro [facility] POCT GLUCOSE (AUTOMATED) 2023-03-06 17:48:00 Lick, Pro [facility] POCT GLUCOSE (AUTOMATED) 2023-03-06 17:48:00 Lick, Jasviro [facility] POCT GLUCOSE (AUTOMATED) 2023-03-06 13:40:00 Lick, Jasviro [facility] POCT GLUCOSE (AUTOMATED) 2023-03-06 13:40:00 Lick, Sco tt [facility] POCT GLUCOSE (AUTOMATED) 2023-03-06 13:40:00 Lick, Jasviro [facility] TRANSFUSE PACKED RBC 2023-03-06 13:30:00 Levi [facility] TRANSFUSE PACKED RBC 2023-03-06 13:30:00 Levi [facility] TRANSFUSE PACKED RBC 2023-03-06 13:30:00 Levi [facility] PREPARE PACKED RBC 2023-03-06 13:01:17 [facility] 2023-03-06 13:01:17 Levi [facility] 2023-03-06 13:01:17 Levi [facility]annah [facility] HB ABO GROUPING 2023-03-06 12:00:00 [facility] HB ABO GROUPING 2023-03-06 12:00:00 [facility] HB ABO GROUPING 2023-03-06 12:00:00 Levi [facility] XR CHEST 1 2023-03-06 10:15:00 Robb [facility] XR CHEST 1 2023-03-06 10:15:00 [facility]b [facility] XR CHEST 1 2023-03-06 10:15:00 Robb [facility] CBC WITHOUT DIFF 2023-03-06 08:25:00 Alexus [facility] CBC WITHOUT DIFF 2023-03-06 08:25:00 Alexus [facility] CBC WITHOUT DIFF 2023-03-06 08:25:00 Alexus [facility] COMP. METABOLIC PANEL (66481) 2023-03-06 08:23:00 Levi [facility] MAGNESIUM 2023-03-06 08:23:00 Levi, [facility] PHOSPHORUS 2023-03-06 08:23:00 Levi, [facility] AC PANEL 21 + LACTIC ACID 2023-03-06 08:23:00 Levi, [facility] ACTIVATED PARTIAL THRMPLAS LAURI 2023-03-06 08:23:00 Levi, [facility] PHOSPHORUS 2023-03-06 08:23:00 Levi, [facility] MAGNESIUM 2023-03-06 08:23:00 Vu, [facility] COMP. METABOLIC PANEL (31636) 2023-03-06 08:23:00 Vu, [facility] ACTIVATED PARTIAL THRMPLAS LAURI 2023-03-06 08:23:00 , [facility] AC PANEL 21 + LACTIC ACID 2023-03-06 08:23:00 Vu, [facility] PHOSPHORUS 2023-03-06 08:23:00 Vu, [facility] MAGNESIUM 2023-03-06 08:23:00 Vu, [facility] COMP. METABOLIC PANEL (16636) 2023-03-06 08:23:00 Vu, [facility] ACTIVATED PARTIAL THRMPLAS LAURI 2023-03-06 08:23:00 Vu, [facility] AC PANEL 21 + LACTIC ACID 2023-03-06 08:23:00 Vu, [facility] POCT GLUCOSE (AUTOMATED) 2023-03-06 05:05:00 Lick, Jasviro tt [facility] POCT GLUCOSE (AUTOMATED) 2023-03-06 05:05:00 Lick, Sco tt [facility] POCT GLUCOSE (AUTOMATED) 2023-03-06 05:05:00 Lick, Sco tt [facility] POCT GLUCOSE (AUTOMATED) 2023-03-06 01:33:00 Lick, Sco tt [facility] POCT GLUCOSE (AUTOMATED) 2023-03-06 01:33:00 Lick, Sco tt [facility] POCT GLUCOSE (AUTOMATED) 2023-03-06 01:33:00 Lick, Sco tt [facility] POCT GLUCOSE (AUTOMATED) 2023-03-06 01:31:00 Lick, Sco tt [facility] POCT GLUCOSE (AUTOMATED) 2023-03-06 01:31:00 Lick, Sco tt [facility] POCT GLUCOSE (AUTOMATED) 2023-03-06 01:31:00 Lick, Sco tt [facility] ACTIVATED PARTIAL THRMPLAS LAURI 2023-03-05 20:35:00 Vu, [facility] CBC WITHOUT DIFF 2023-03-05 20:35:00 Alexus [facility] CBC WITHOUT DIFF 2023-03-05 20:35:00 Alexus [facility] ACTIVATED PARTIAL THRMPLAS LAURI 2023-03-05 20:35:00 Vu, [facility] CBC WITHOUT DIFF 2023-03-05 20:35:00 Alexus [facility] ACTIVATED PARTIAL THRMPLAS LAURI 2023-03-05 20:35:00 Vu, [facility] CT ABDOMEN PELVIS W CONTRAST 2023-03-05 20:28:00 Vu, [facility] CT THORAX W CONTRAST 2023-03-05 20:28:00 Vu, [facility] CT ABDOMEN PELVIS W CONTRAST 2023-03-05 20:28:00 Vu, [facility] CT THORAX W CONTRAST 2023-03-05 20:28:00 Vu, [facility] CT ABDOMEN PELVIS W CONTRAST 2023-03-05 20:28:00 Vu, [facility] CT THORAX W CONTRAST 2023-03-05 20:28:00 Vu, [facility] SPUTUM CULTURE 2023-03-05 19:03:00 Vu, [facility] FUNGUS (ROUTINE) CULTURE 2023-03-05 19:03:00 Vu, [facility] FUNGUS (ROUTINE) CULTURE 2023-03-05 19:03:00 Vu, [facility] SPUTUM CULTURE 2023-03-05 19:03:00 Vu, [facility] FUNGUS (ROUTINE) CULTURE 2023-03-05 19:03:00 Vu, [facility] SPUTUM CULTURE 2023-03-05 19:03:00 Vu, [facility] AC PANEL 20 + LACTIC ACID 2023-03-05 18:37:00 Vu, [facility] ACTIVATED PARTIAL THRMPLAS LAURI 2023-03-05 18:37:00 Vu, [facility] ACTIVATED PARTIAL THRMPLAS LAURI 2023-03-05 18:37:00 Vu, [facility] AC PANEL 20 + LACTIC ACID 2023-03-05 18:37:00 Vu, [facility] ACTIVATED PARTIAL THRMPLAS LAURI 2023-03-05 18:37:00 Vu, [facility] AC PANEL 20 + LACTIC ACID 2023-03-05 18:37:00 Vu, [facility] CBC WITH DIFF 2023-03-05 12:58:[address] [facility] ACTIVATED PARTIAL THRMPLAS LAURI 2023-03-05 12:58:00 Vu, [facility] CBC WITH DIFF 2023-03-05 12:58:[address] [facility] ACTIVATED PARTIAL THRMPLAS LAURI 2023-03-05 12:58:00 Vu, [facility] CBC WITH DIFF 2023-03-05 12:58:[address] [facility] ACTIVATED PARTIAL THRMPLAS LAURI 2023-03-05 12:58:00 Vu, [facility] POCT GLUCOSE (AUTOMATED) 2023-03-05 12:38:00 Lick, Sco tt [facility] POCT GLUCOSE (AUTOMATED) 2023-03-05 12:38:00 Lick, Sco tt [facility] POCT GLUCOSE (AUTOMATED) 2023-03-05 12:38:00 Lick, Jasviro tt [facility] XR CHEST 1 VW 2023-03-05 11:50:00 Jackie Zamudio [facility] XR CHEST 1 VW 2023-03-05 11:50:00 Jackie Zamudio [facility] TRANSFUSE PACKED RBC 2023-03-05 09:46:00 Emily Holt [facility] TRANSFUSE PACKED RBC 2023-03-05 09:46[facility] 2023-03-05 09:46[facility] 2023-03-05 09:44:43 [facility] 2023-03-05 09:44:43 [facility] 2023-03-05 09:44:43 Emily Holt Un [facility] PROCALCITONIN 2023-03-05 08:37:00 [facility]FF 2023-03-05 08:37:00 Levi [facility] BASIC METABOLIC PANEL (NA, K, CL, CO2, GLUCOSE, BUN, CREATININE, CA) 2023-03-05 08:37:00 [facility] + LACTIC ACID 2023-03-05 08:37:00 [facility] THRMPLAS LAURI 2023-03-05 08:37:00 Levi [facility] PHOSPHORUS 2023-03-05 08:37:00 Raul [facility] PHOSPHORUS 2023-03-05 08:37:00 Raul [facility] BASIC METABOLIC PANEL (NA, K, CL, CO2, GLUCOSE, BUN, CREATININE, CA) 2023-03-05 08:37:00 [facility]FF 2023-03-05 08:37:00 Levi [facility] ACTIVATED PARTIAL THRMPLAS LAURI 2023-03-05 08:37:00 Levi [facility] PROCALCITONIN 2023-03-05 08:37:00 [facility] AC PANEL 20 + LACTIC ACID 2023-03-05 08:37:00 [facility]23-03-05 08:37:00 Raul, [facility] BASIC METABOLIC PANEL (NA, K, CL, CO2, GLUCOSE, BUN, CREATININE, CA) 2023-03-05 08:37:00 Emily Holt [facility] CBC WITH DIFF 2023-03-05 08:37:00 Levi, [facility] ACTIVATED PARTIAL THRMPLAS LAURI 2023-03-05 08:37:00 Levi, [facility] PROCALCITONIN 2023-03-05 08:37:00 Jackie Zamudio [facility] AC PANEL 20 + LACTIC ACID 2023-03-05 08:37:00 Pastora Holt [facility] AC PANEL 20 + LACTIC ACID 2023-03-05 04:38:00 Pastora Holt [facility] AC PANEL 20 + LACTIC ACID 2023-03-05 04:38:00 Pastora Holt [facility] AC PANEL 20 + LACTIC ACID 2023-03-05 04:38:00 Pastora Holt [facility] CBC WITH DIFF 2023-03-05 03:35:00 Vu, [facility] ACTIVATED PARTIAL THRMPLAS LAURI 2023-03-05 03:35:00 Vu, [facility] CBC WITH DIFF 2023-03-05 03:35:00 Vu, [facility] ACTIVATED PARTIAL THRMPLAS LAURI 2023-03-05 03:35:00 Vu, [facility] CBC WITH DIFF 2023-03-05 03:35:00 Vu, [facility] ACTIVATED PARTIAL THRMPLAS LAURI 2023-03-05 03:35:00 Vu, [facility] POCT GLUCOSE (AUTOMATED) 2023-03-05 01:08:00 LickJasviro tt [facility] POCT GLUCOSE (AUTOMATED) 2023-03-05 01:08:00 Lick, Sco tt [facility] POCT GLUCOSE (AUTOMATED) 2023-03-05 01:08:00 Lick, Sco tt [facility] ACTIVATED PARTIAL THRMPLAS LAURI 2023-03-04 23:52:00 Vu, [facility] ACTIVATED PARTIAL THRMPLAS LAURI 2023-03-04 23:52:00 Vu, [facility] ACTIVATED PARTIAL THRMPLAS LAURI 2023-03-04 23:52:00 Vu, [facility] POCT GLUCOSE (AUTOMATED) 2023-03-04 21:53:00 Lick, Jasviro tt [facility] POCT GLUCOSE (AUTOMATED) 2023-03-04 21:53:00 Lick, Sco tt [facility] POCT GLUCOSE (AUTOMATED) 2023-03-04 21:53:00 Lick, Jasviro tt [facility] OCCULT (GUAIAC) BLOOD 2023-03-04 21:47:00 Vu, [facility] CBC WITH DIFF 2023-03-04 21:47:00 Vu, [facility] CBC WITH DIFF 2023-03-04 21:47:00 Vu, [facility] OCCULT (GUAIAC) BLOOD 2023-03-04 21:47:00 Vu, [facility] CBC WITH DIFF 2023-03-04 21:47:00 Vu, [facility] OCCULT (GUAIAC) BLOOD 2023-03-04 21:47:00 Levi [facility] FIBRINOGEN 2023-03-04 21:46:00 Emily Holt [facility] FIBRINOGEN 2023-03-04 21:46:00 Emily Holt [facility] FIBRINOGEN 2023-03-04 21:46[facility]23-03-04 21:01:00 Levi [facility] CLOSTRIDIUM DIFFICILE TOXIN 2023-03-04 21:01:00 Levi, [facility] FECES CULTURE 2023-03-04 21:01:00 Vu [facility] FECES CULTURE 2023-03-04 21:01:00 Levi [facility] CLOSTRIDIUM DIFFICILE TOXIN 2023-03-04 21:01:00 Levi [facility] FECES CULTURE 2023-03-04 21:01:00 Levi [facility] CLOSTRIDIUM DIFFICILE TOXIN 2023-03-04 21:01:00 Levi [facility] CBC WITHOUT DIFF 2023-03-04 18:30:00 [facility] CBC WITHOUT DIFF 2023-03-04 18:30:00 [facility] CBC WITHOUT DIFF 2023-03-04 18:30:00 [facility] POTASSIUM SERUM 2023-03-04 16:38:00 Levi [facility] ACTIVATED PARTIAL THRMPLAS LAURI 2023-03-04 16:38:00 Rafita [facility] POTASSIUM SERUM 2023-03-04 16:38:00 Levi [facility] ACTIVATED PARTIAL THRMPLAS LAURI 2023-03-04 16:38:00 Rafita [facility] POTASSIUM SERUM 2023-03-04 16:38:00 Levi [facility] ACTIVATED PARTIAL THRMPLAS LAURI 2023-03-04 16:38:00 Rafita [facility] AC PANEL 20 + LACTIC ACID 2023-03-04 16:37:00 Rosemarie Zamudio [facility] AC PANEL 20 + LACTIC ACID 2023-03-04 16:37:00 Rosemarie Zamudio [facility] AC PANEL 20 + LACTIC ACID 2023-03-04 16:37:00 Rosemarie Zamudio [facility] TRANSFUSE PACKED RBC 2023-03-04 14:00:00 Levi [facility] TRANSFUSE PACKED RBC 2023-03-04 14:00:00 Levi [facility] TRANSFUSE PACKED RBC 2023-03-04 14:00:00 [facility] 2023-03-04 13:44:44 Levi MimiYariAlexandra Un [facility] PREPARE PACKED RBC 2023-03-04 13:44:44 [facility] PREPARE PACKED RBC 2023-03-04 13:44:44 [facility] POCT GLUCOSE (AUTOMATED) 2023-03-04 13:14:00 Lick, Sco tt [facility] POCT GLUCOSE (AUTOMATED) 2023-03-04 13:14:00 Lick, Sco tt [facility] POCT GLUCOSE (AUTOMATED) 2023-03-04 13:14:00 Lick, Sco tt [facility] ACTIVATED PARTIAL THRMPLAS LAURI 2023-03-04 13:09:00 Levi [facility] ACTIVATED PARTIAL THRMPLAS LAURI 2023-03-04 13:09:00 Levi [facility] ACTIVATED PARTIAL THRMPLAS LAURI 2023-03-04 13:09:00 Levi [facility] AC PANEL 20 + LACTIC ACID 2023-03-04 09:47:00 Rosemarie Zamudio [facility] AC PANEL 20 + LACTIC ACID 2023-03-04 09:47:00 Rosemarie Zamudio [facility] AC PANEL 20 + LACTIC ACID 2023-03-04 09:47:00 Rosemarie Zamudio [facility] PHOSPHORUS 2023-03-04 09:46:00 Jackie Zamudio [facility] HEPATIC FUNCTION PANEL (66071) (ALB,T.PRO,BILI T,BU/BC,ALT,AST,ALK PHOS) 2023-03-04 09:46:00 [facility] PROCALCITONIN 2023-03-04 09:46:00 Jackie Zamudio [facility] BASIC METABOLIC PANEL (NA, K, CL, CO2, GLUCOSE, BUN, CREATININE, CA) 2023-03-04 09:46:00 Isaac Vaughan [facility] CBC WITH DIFF 2023-03-04 09:46:00 Isaac Vaughan [facility] MAGNESIUM 2023-03-04 09:46:00 Alexus [facility] ACTIVATED PARTIAL THRMPLAS LAURI 2023-03-04 09:46:00 Levi [facility] PHOSPHORUS 2023-03-04 09:46:00 Jackie Zamudio [facility] MAGNESIUM 2023-03-04 09:46:00 Alexus [facility] HEPATIC FUNCTION PANEL ([id number]) (ALB,T.PRO,BILI T,BU/BC,ALT,AST,ALK PHOS) 2023-03-04 09:46:00 Robb [facility] BASIC METABOLIC PANEL (NA, K, CL, CO2, GLUCOSE, BUN, CREATININE, CA) 2023-03-04 09:46:00 [facility] CBC WITH DIFF 2023-03-04 09:46:00 Isaac Vaughan [facility] ACTIVATED PARTIAL THRMPLAS LAURI 2023-03-04 09:46:00 Levi [facility] PROCALCITONIN 2023-03-04 09:46:00 [facility] 2023-03-04 09:46:00 Jackie Zamudio [facility] MAGNESIUM 2023-03-04 09:46:00 Alexus [facility] HEPATIC FUNCTION PANEL ([id number]) (ALB,T.PRO,BILI T,BU/BC,ALT,AST,ALK PHOS) 2023-03-04 09:46:00 Robb [facility] BASIC METABOLIC PANEL (NA, K, CL, CO2, GLUCOSE, BUN, CREATININE, CA) 2023-03-04 09:46:00 [facility] CBC WITH DIFF 2023-03-04 09:46:00 Isaac Vaughan [facility] ACTIVATED PARTIAL THRMPLAS LAURI 2023-03-04 09:46:00 Levi [facility] PROCALCITONIN 2023-03-04 09:46:00 Jackie Zamudio [facility] XR CHEST 1 VW 2023-03-04 08:40:00 [facility] XR KUB 2023-03-04 08:40:00 Mira Soto elpidiolyudmila [facility] XR CHEST 1 VW 2023-03-04 08:40:00 [facility] XR KUB 2023-03-04 08:40:00 Mira Soto [facility] XR CHEST 1 VW 2023-03-04 08:40:00 [facility] XR KUB 2023-03-04 08:40:00 Mira Soto [facility] ACTIVATED PARTIAL THRMPLAS LAURI 2023-03-04 06:37:00 Vu, [facility] ACTIVATED PARTIAL THRMPLAS LAURI 2023-03-04 06:37:00 Vu, [facility] ACTIVATED PARTIAL THRMPLAS LAURI 2023-03-04 06:37:00 Levi, [facility] AC PANEL 20 + LACTIC ACID 2023-03-04 04:21:00 Rosemarie Zamudio [facility] AC PANEL 20 + LACTIC ACID 2023-03-04 04:21:00 Rosemarie Zamudio [facility] AC PANEL 20 + LACTIC ACID 2023-03-04 04:21:00 Rosemarie Zamudio [facility] XR ABDOMEN 1 2023-03-04 02:55:00 Isaac Vaughan [facility] XR ABDOMEN 1 2023-03-04 02:55:00 Isaac [facility] XR ABDOMEN 1 2023-03-04 02:55:00 Isaac [facility] ACTIVATED PARTIAL THRMPLAS LAURI 2023-03-04 01:52:00 Levi, [facility] ACTIVATED PARTIAL THRMPLAS LAURI 2023-03-04 01:52:00 Vu, [facility] ACTIVATED PARTIAL THRMPLAS LAURI 2023-03-04 01:52:00 [facility]EL 20 + LACTIC ACID 2023-03-04 01:50:00 Rosemarie Zamudio [facility] AC PANEL 20 + LACTIC ACID 2023-03-04 01:50:00 Robb, Rosemarie [facility] AC PANEL 20 + LACTIC ACID 2023-03-04 01:50:00 Rosemarie Zamudio [facility] AC PANEL 20 + LACTIC ACID 2023-03-04 00:27:00 Robb, Rosemarie [facility] AC PANEL 20 + LACTIC ACID 2023-03-04 00:27:00 Rosemarie Zamudio [facility] AC PANEL 20 + LACTIC ACID 2023-03-04 00:27:00 Rosemarie Zamudio [facility] XR CHEST 1 VW 2023-03-03 22:56:00 Isaac Vaughan [facility] XR CHEST 1 2023-03-03 22:56:00 Isaac Vaughan [facility] XR CHEST 1 2023-03-03 22:56:00 Isaac Vaughan [facility] AC PANEL 20 + LACTIC ACID 2023-03-03 22:34:00 Rosemarie Zamudio [facility] AC PANEL 20 + LACTIC ACID 2023-03-03 22:34:00 Rosemarie Zamudio [facility] AC PANEL 20 + LACTIC ACID 2023-03-03 22:34:00 Rosemarie Zamudio [facility] AC PANEL 20 + LACTIC ACID 2023-03-03 21:31:00 Rosemarie Zamudio [facility] AC PANEL 20 + LACTIC ACID 2023-03-03 21:31:00 Rosemarie Zamudio [facility] AC PANEL 20 + LACTIC ACID 2023-03-03 21:31:00 Rosemarie Zamudio [facility] POCT GLUCOSE (AUTOMATED) 2023-03-03 20:36:00 Lick, Sco tt [facility] POCT GLUCOSE (AUTOMATED) 2023-03-03 20:36:00 Lick, Sco [facility] POCT GLUCOSE (AUTOMATED) 2023-03-03 20:36:00 Lick, Sco [facility] ACTIVATED PARTIAL THRMPLAS LAURI 2023-03-03 20:30:00 Vu, [facility] ACTIVATED PARTIAL THRMPLAS LAURI 2023-03-03 20:30:00 Vu, [facility] ACTIVATED PARTIAL THRMPLAS LAURI 2023-03-03 20:30:00 Vu, [facility] ACTIVATED PARTIAL THRMPLAS LAURI 2023-03-03 16:04:00 [facility] ACTIV[facility] PARTIAL THRMPLAS LAURI 2023-03-03 16:04:00 [facility] ACTIVATED PARTIAL THRMPLAS LAURI 2023-03-03 16:04:00 [facility] POCT GLUCOSE (AUTOMATED) 2023-03-03 13:45:00 Lick, Sco tt [facility] POCT GLUCOSE (AUTOMATED) 2023-03-03 13:45:00 Lick, Sco tt [facility] POCT GLUCOSE (AUTOMATED) 2023-03-03 13:45:00 Lick, Jasviro tt [facility] XR CHEST 1 2023-03-03 08:36:00 Jackie Zamudio [facility] XR CHEST 1 VW 2023-03-03 08:36:00 Jackie Zamudio [facility] MAGNESIUM 2023-03-03 08:31:00 Jackie Zamudio [facility] PHOSPHORUS 2023-03-03 08:31:00 Jackie Zamudio [facility] HEPATIC FUNCTION PANEL (64068) (ALB,T.PRO,BILI T,BU/BC,ALT,AST,ALK PHOS) 2023-03-03 08:31:00 [facility] 2023-03-03 08:31:00 Jackie Zamudio [facility] THYROID STIMULATING HORMONE 2023-03-03 08:31:00 [facility] 2023-03-03 08:31:00 Jackie Zamudio [facility] FREE T4 2023-03-03 08:31:00 Jackie Zamudio [facility] DIGOXIN 2023-03-03 08:31:00 Jackie Zamudio [facility] BASIC METABOLIC PANEL (NA, K, CL, CO2, GLUCOSE, BUN, CREATININE, CA) 2023-03-03 08:31:[address] [facility] / INR 2023-03-03 08:31:00 Diane Zamudio [facility] CBC WITH DIFF 2023-03-03 08:31:00 Levi [facility] ACTIVATED PARTIAL THRMPLAS LAURI 2023-03-03 08:31:00 Levi [facility] POCT GLUCOSE (AUTOMATED) 2023-03-03 08:31:00 Lick, Sco tt [facility] PHOSPHORUS 2023-03-03 08:31:00 Jackie Zamudio [facility] MAGNESIUM 2023-03-03 08:31:00 Jackie Zamudio [facility] FREE T4 2023-03-03 08:31:00 Jackie Zamudio [facility] THYROID STIMULATING HORMONE 2023-03-03 08:31:00 [facility] FUNCTION PANEL (40554) (ALB,T.PRO,BILI T,BU/BC,ALT,AST,ALK PHOS) 2023-03-03 08:31:00 Jackie Zamudio [facility] BASIC METABOLIC PANEL (NA, K, CL, CO2, GLUCOSE, BUN, CREATININE, CA) 2023-03-03 08:31:00 Jackie Zamudio [facility] DIGOXIN 2023-03-03 08:31:00 Jackie Zamudio [facility] CBC WITH DIFF 2023-03-03 08:31:00 Levi [facility] PROTHROMBIN TIME / INR 2023-03-03 08:31:00 Diane Zamudio [facility] ACTIVATED PARTIAL THRMPLAS LAURI 2023-03-03 08:31:00 [facility]) 2023-03-03 08:31:00 Teresak, Jasviro tt [facility] FREE T3 2023-03-03 08:31:00 Jackie Zamudio [facility] PROCALCITONIN 2023-03-03 08:31:00 Jackie Zamudio [facility] PHOSPHORUS 2023-03-03 08:31:00 Jackie Zamudio [facility] MAGNESIUM 2023-03-03 08:31:00 Jackie Zamudio [facility] FREE T4 2023-03-03 08:31:00 Jackie Zamudio [facility] THYROID STIMULATING HORMONE 2023-03-03 08:31:00 [facility] FUNCTION PANEL ([id number]) (ALB,T.PRO,BILI T,BU/BC,ALT,AST,ALK PHOS) 2023-03-03 08:31:00 Clarice Zamudioalisa [facility] BASIC METABOLIC PANEL (NA, K, CL, CO2, GLUCOSE, BUN, CREATININE, CA) 2023-03-03 08:31:00 [facility] 2023-03-03 08:31:00 Jackie Zamudio [facility] CBC WITH DIFF 2023-03-03 08:31:00 [facility] / INR 2023-03-03 08:31:00 Diane Zamudio [facility] ACTIVATED PARTIAL THRMPLAS LAURI 2023-03-03 08:31:00 Levi [facility] POCT GLUCOSE (AUTOMATED) 2023-03-03 08:31:00 TeresakJasviro tt [facility] FREE T3 2023-03-03 08:31:00 Jackie Zamudio [facility] PROCALCITONIN 2023-03-03 08:31:00 Jackie Zamudio [facility] ACTIVATED PARTIAL THRMPLAS LAURI 2023-03-03 06:10:00 Levi [facility] ACTIVATED PARTIAL THRMPLAS LAURI 2023-03-03 06:10:00 Vu, [facility] ACTIVATED PARTIAL THRMPLAS LAURI 2023-03-03 06:10:00 Vu, [facility] POCT GLUCOSE (AUTOMATED) 2023-03-03 05:03:00 Lick, Jasviro tt [facility] POCT GLUCOSE (AUTOMATED) 2023-03-03 05:03:00 Lick, Sco tt [facility] POCT GLUCOSE (AUTOMATED) 2023-03-03 05:03:00 Lick, Sco tt [facility] ACTIVATED PARTIAL THRMPLAS LAURI 2023-03-03 02:35:00 Rafita [facility] ACTIVATED PARTIAL THRMPLAS LAURI 2023-03-03 02:35:00 [facility] ACTIVATED PARTIAL THRMPLAS LAURI 2023-03-03 02:35:00 Rafita [facility] POCT GLUCOSE (AUTOMATED) 2023-03-03 02:34:00 LickJasviro tt [facility] POCT GLUCOSE (AUTOMATED) 2023-03-03 02:34:00 Lick, Sco tt [facility] POCT GLUCOSE (AUTOMATED) 2023-03-03 02:34:00 Lick, Sco tt [facility] ACTIVATED PARTIAL THRMPLAS LAURI 2023-03-02 22:24:00 Vu, [facility] ACTIVATED PARTIAL THRMPLAS LAURI 2023-03-02 22:24:00 Vu, [facility] ACTIVATED PARTIAL THRMPLAS LAURI 2023-03-02 22:24:00 Vu, [facility] POCT GLUCOSE (AUTOMATED) 2023-03-02 21:08:00 Lick, Jasviro tt [facility] POCT GLUCOSE (AUTOMATED) 2023-03-02 21:08:00 Lick, Sco tt [facility] POCT GLUCOSE (AUTOMATED) 2023-03-02 21:08:00 Lick, Sco tt [facility] POCT GLUCOSE (AUTOMATED) 2023-03-02 17:20:00 Lick, Sco tt [facility] POCT GLUCOSE (AUTOMATED) 2023-03-02 17:20:00 Lick, Sco tt [facility] POCT GLUCOSE (AUTOMATED) 2023-03-02 17:20:00 Lick, Sco tt [facility] CBC WITHOUT DIFF 2023-03-02 17:19:00 Leena, [facility] KELL, UNFRACTIONATED HEPARIN 2023-03-02 17:19:00 Vu, [facility] CBC WITHOUT DIFF 2023-03-02 17:19:00 Shevlin, [facility] KELL, UNFRACTIONATED HEPARIN 2023-03-02 17:19:00 Vu, [facility] CBC WITHOUT DIFF 2023-03-02 17:19:00 Elena, [facility] KELL, UNFRACTIONATED HEPARIN 2023-03-02 17:19:00 Vu, [facility] PROTHROMBIN TIME / INR 2023-03-02 13:46:00 Elena, [facility] FIBRINOGEN 2023-03-02 13:46:00 Shevlin [facility] PROTHROMBIN TIME / INR 2023-03-02 13:46:00 Shevlin, [facility] FIBRINOGEN 2023-03-02 13:46:00 Shevlin [facility] PROTHROMBIN TIME / INR 2023-03-02 13:46:00 Shevlin, [facility] FIBRINOGEN 2023-03-02 13:46:00 Elena [facility] PHOSPHORUS 2023-03-02 12:35:00 Mimi Antonio [facility] HB ABO GROUPING 2023-03-02 12:35:00 Elena [facility] KELL, UNFRACTIONATED HEPARIN 2023-03-02 12:35:00 Shevlin, [facility] EXTRA SST HOLD FOR ARUP 2023-03-02 12:35:00 [facility] 2023-03-02 12:35:00 Miim Antonio [facility] HB ABO GROUPING 2023-03-02 12:35:00 Shevlin [facility] HIT - AB 2023-03-02 12:35:00 Shevlin [facility] EXTRA SST HOLD FOR MEUP 2023-03-02 12:35:00 [facility] PHOS[facility] 2023-03-02 12:35:00 Paco Mimi [facility] HB ABO GROUPING 2023-03-02 12:35:00 Elena [facility] HIT - AB 2023-03-02 12:35:00 Elena [facility] EXTRA SST HOLD FOR [facility] 2023-03-02 12:35:00 Elena [facility] POCT GLUCOSE (AUTOMATED) 2023-03-02 12:34:00 Lick, Sco tt [facility] POCT GLUCOSE (AUTOMATED) 2023-03-02 12:34:00 Lick, Sco tt [facility] POCT GLUCOSE (AUTOMATED) 2023-03-02 12:34:00 Lick, Sco tt [facility] MAGNESIUM 2023-03-02 09:15:00 Elena, [facility] PHOSPHORUS 2023-03-02 09:15:00 Shevlin [facility] HEPATIC FUNCTION PANEL ([id number]) (ALB,T.PRO,BILI T,BU/BC,ALT,AST,ALK PHOS) 2023-03-02 09:15:00 [facility] 2023-03-02 09:15:00 Jackie Zamudio [facility] THYROID STIMULATING HORMONE 2023-03-02 09:15:00 Jackie Zamudio [facility] FREE T3 2023-03-02 09:15:00 [facility] 2023-03-02 09:15:00 Jackie Zamudio [facility] DIGOXIN 2023-03-02 09:15:00 Jackie Zamudio [facility] CBC WITH DIFF 2023-03-02 09:15:00 Shevlin, [facility] BASIC METABOLIC PANEL (NA, K, CL, CO2, GLUCOSE, BUN, CREATININE, CA) 2023-03-02 09:15:00 Elena, [facility] PROTHROMBIN TIME / INR 2023-03-02 09:15:00 Diane Zamudio [facility] ACTIVATED PARTIAL THRMPLAS LAURI 2023-03-02 09:15:00 [facility] (AUTOMATED) 2023-03-02 09:15:00 Lick, Jasviro [facility] PHOSPHORUS 2023-03-02 09:15:00 Elena [facility] MAGNESIUM 2023-03-02 09:15:00 Elena [facility] FREE T4 2023-03-02 09:15:00 Jackie Zamudio [facility] THYROID STIMULATING HORMONE 2023-03-02 09:15:00 Robb [facility] HEPATIC FUNCTION PANEL ([id number]) (ALB,T.PRO,BILI T,BU/BC,ALT,AST,ALK PHOS) 2023-03-02 09:15:00 Jackie Zamudio [facility] BASIC METABOLIC PANEL (NA, K, CL, CO2, GLUCOSE, BUN, CREATININE, CA) 2023-03-02 09:15:00 Shevlin, [facility] DIGOXIN 2023-03-02 09:15:00 Jackie Zamudio [facility] CBC WITH DIFF 2023-03-02 09:15:00 Elena, [facility] PROTHROMBIN TIME / INR 2023-03-02 09:15:00 Diane Zamudio [facility] ACTIVATED PARTIAL THRMPLAS LAURI 2023-03-02 09:15:[address] [facility] POCT GLUCOSE (AUTOMATED) 2023-03-02 09:15:00 Jasvir Longo tt [facility] FREE T3 2023-03-02 09:15:00 Jackie Zamudio [facility] PROCALCITONIN 2023-03-02 09:15:00 Jackie Zamudio [facility] PHOSPHORUS 2023-03-02 09:15:00 Elena [facility] MAGNESIUM 2023-03-02 09:15:00 Elena, [facility] FREE T4 2023-03-02 09:15:00 Jackie Zamudio [facility] THYROID STIMULATING HORMONE 2023-03-02 09:15:00 Robb [facility] HEPATIC FUNCTION PANEL ([id number]) (ALB,T.PRO,BILI T,BU/BC,ALT,AST,ALK PHOS) 2023-03-02 09:15:00 [facility] BASIC METABOLIC PANEL (NA, K, CL, CO2, GLUCOSE, BUN, CREATININE, CA) 2023-03-02 09:15:00 Elena, [facility] DIGOXIN 2023-03-02 09:15:00 Jackie Zamudio [facility] CBC WITH DIFF 2023-03-02 09:15:00 Elena [facility] PROTHROMBIN TIME / INR 2023-03-02 09:15:00 Diane Zamudio [facility] ACTIVATED PARTIAL THRMPLAS LAURI 2023-03-02 09:15:00 Mya Eller [facility] POCT GLUCOSE (AUTOMATED) 2023-03-02 09:15:00 Blessing Long tt [facility] FREE T3 2023-03-02 09:15:00 Jackie Zamudio [facility] PROCALCITONIN 2023-03-02 09:15:00 Jackie Zamudio [facility] XR CHEST 1 VW 2023-03-02 09:00:00 Jackie Zamudio [facility] XR CHEST 1 VW 2023-03-02 09:00:00 Robb, [facility] XR CHEST 1 VW 2023-03-02 09:00:00 Robb [facility] POCT GLUCOSE (AUTOMATED) 2023-03-02 04:57:00 Lick, Jasviro tt [facility] POCT GLUCOSE (AUTOMATED) 2023-03-02 04:57:00 Lick, Jasviro tt [facility] POCT GLUCOSE (AUTOMATED) 2023-03-02 04:57:00 Lick, Jasviro tt [facility] POCT GLUCOSE (AUTOMATED) 2023-03-02 01:01:00 Lick, Jasviro tt [facility] POCT GLUCOSE (AUTOMATED) 2023-03-02 01:01:00 Lick, Jasviro tt [facility] POCT GLUCOSE (AUTOMATED) 2023-03-02 01:01:00 Lick, Jsaviro tt [facility] BASIC METABOLIC PANEL (NA, K, CL, CO2, GLUCOSE, BUN, CREATININE, CA) 2023-03-01 22:37:00 Robb [facility] ACTIVATED PARTIAL THRMPLAS LAURI 2023-03-01 22:37:00 Rafita [facility] BASIC METABOLIC PANEL (NA, K, CL, CO2, GLUCOSE, BUN, CREATININE, CA) 2023-03-01 22:37:00 Robb [facility] ACTIVATED PARTIAL THRMPLAS LAURI 2023-03-01 22:37:00 Rafita [facility] BASIC METABOLIC PANEL (NA, K, CL, CO2, GLUCOSE, BUN, CREATININE, CA) 2023-03-01 22:37:00 Robb [facility] ACTIVATED PARTIAL THRMPLAS LAURI 2023-03-01 22:37:00 Rafita [facility] POCT GLUCOSE (AUTOMATED) 2023-03-01 22:33:00 Lick, Jasviro tt [facility] POCT GLUCOSE (AUTOMATED) 2023-03-01 22:33:00 Lick, Jasivro tt [facility] POCT GLUCOSE (AUTOMATED) 2023-03-01 22:33:00 Lick, Sco tt [facility] POCT GLUCOSE (AUTOMATED) 2023-03-01 16:40:00 Lick, Sco tt [facility] POCT GLUCOSE (AUTOMATED) 2023-03-01 16:40:00 Lick, Sco tt [facility] POCT GLUCOSE (AUTOMATED) 2023-03-01 16:40:00 Lick, Sco tt [facility] PHOSPHORUS 2023-03-01 16:37:00 [facility]imi [facility] BASIC METABOLIC PANEL (NA, K, CL, CO2, GLUCOSE, BUN, CREATININE, CA) 2023-03-01 16:37:00 Robb [facility] PHOSPHORUS 2023-03-01 16:37:00 aPco Mimi [facility] BASIC METABOLIC PANEL (NA, K, CL, CO2, GLUCOSE, BUN, CREATININE, CA) 2023-03-01 16:37:00 Robb [facility] PHOSPHORUS 2023-03-01 16:37:00 Mimi Antonio [facility] BASIC METABOLIC PANEL (NA, K, CL, CO2, GLUCOSE, BUN, CREATININE, CA) 2023-03-01 16:37:00 Robb [facility] TRANSTHORACIC ECHO (TTE) LIMITED W/ DOPPLER, COLOR AND CONTRAST 2023-03-01 15:52:00 Robb [facility] TRANSTHORACIC ECHO (TTE) LIMITED W/ DOPPLER, COLOR AND CONTRAST 2023-03-01 15:52:00 Robb [facility] TRANSTHORACIC ECHO (TTE) LIMITED W/ DOPPLER, COLOR AND CONTRAST 2023-03-01 15:52:00 Robb [facility] URINALYSIS 2023-03-01 15:07:00 Jackie Zamudio [facility] BLOOD CULTURE SCREEN 2023-03-01 15:07:00 Ginny Zamudio [facility] BLOOD CULTURE SCREEN 2023-03-01 15:07:00 Ginny Zamudio [facility] URINALYSIS 2023-03-01 15:07:00 Jackie Zamudio [facility] BLOOD CULTURE SCREEN 2023-03-01 15:07:00 Ginny Zamudio sa [facility] URINALYSIS 2023-03-01 15:07:00 Jackie Zamudio [facility] XR CHEST 1 VW 2023-03-01 13:23:00 Jackie Zamudio [facility] XR CHEST 1 VW 2023-03-01 13:23:00 Jackie Zamudio [facility] XR CHEST 1 VW 2023-03-01 13:23:00 Jackie Zamudio [facility] POCT GLUCOSE (AUTOMATED) 2023-03-01 13:13:00 Lick, Sco tt [facility] POCT GLUCOSE (AUTOMATED) 2023-03-01 13:13:00 Lick, Sco tt [facility] POCT GLUCOSE (AUTOMATED) 2023-03-01 13:13:00 Lick, Sco tt [facility] MAGNESIUM 2023-03-01 09:12:00 Jackie Zamudio [facility] PHOSPHORUS 2023-03-01 09:12:00 Jackie Zamudio [facility] HEPATIC FUNCTION PANEL ([id number]) (ALB,T.PRO,BILI T,BU/BC,ALT,AST,ALK PHOS) 2023-03-01 09:12:00 Jackie Zamudio [facility] PROCALCITONIN 2023-03-01 09:12:00 Jackie Zamudio [facility] THYROID STIMULATING HORMONE 2023-03-01 09:12:00 Jackie Zamudio [facility] FREE T3 2023-03-01 09:12:00 Jackie Zamudio [facility] FREE T4 2023-03-01 09:12:00 Jackie Zamudio [facility] DIGOXIN 2023-03-01 09:12:00 Jackie Zamudio [facility] CBC WITH DIFF 2023-03-01 09:12:00 Jackie Zamudio [facility] BASIC METABOLIC PANEL (NA, K, CL, CO2, GLUCOSE, BUN, CREATININE, CA) 2023-03-01 09:12:00 [facility] / INR 2023-03-01 09:12:00 Diane Zamudio [facility] ACTIVATED PARTIAL THRMPLAS LAURI 2023-03-01 09:12:00 Rafita [facility] EXTRA TUBE RED 2023-03-01 09:12:00 Burke Long [facility] PHOSPHORUS 2023-03-01 09:12:00 Jackie Zamudio [facility] MAGNESIUM 2023-03-01 09:12:00 Jackie Zamudio [facility] FREE T4 2023-03-01 09:12:00 Jackie Zamudio [facility] THYROID STIMULATING HORMONE 2023-03-01 09:12:00 Robb [facility] HEPATIC FUNCTION PANEL ([id number]) (ALB,T.PRO,BILI T,BU/BC,ALT,AST,ALK PHOS) 2023-03-01 09:12:00 [facility] BASIC METABOLIC PANEL (NA, K, CL, CO2, GLUCOSE, BUN, CREATININE, CA) 2023-03-01 09:12:00 [facility] D[facility] 2023-03-01 09:12:00 Jackie Zamudio [facility] CBC WITH DIFF 2023-03-01 09:12:00 Jackie Zamudio [facility] PROTHROMBIN TIME / INR 2023-03-01 09:12:00 Diane Zamudio [facility] ACTIVATED PARTIAL THRMPLAS LAURI 2023-03-01 09:12:00 Rafita [facility] FREE T3 2023-03-01 09:12:00 Jackie Zamudio [facility] PROCALCITONIN 2023-03-01 09:12:00 Jackie Zamudio [facility] EXTRA TUBE RED 2023-03-01 09:12:00 Burke Long [facility] PHOSPHORUS 2023-03-01 09:12:00 Jackie Zamudio [facility] MAGNESIUM 2023-03-01 09:12:00 Jackie Zamudio [facility] FREE T4 2023-03-01 09:12:00 Jackie Zamudio [facility] THYROID STIMULATING HORMONE 2023-03-01 09:12:00 [facility] HEPATIC FUNCTION PANEL ([id number]) (ALB,T.PRO,BILI T,BU/BC,ALT,AST,ALK PHOS) 2023-03-01 09:12:00 [facility] BASIC METABOLIC PANEL (NA, K, CL, CO2, GLUCOSE, BUN, CREATININE, CA) 2023-03-01 09:12:[address] [facility]23-03-01 09:12:00 Jackie Zamudio [facility] CBC WITH DIFF 2023-03-01 09:12:00 Jackie Zamudio [facility] PROTHROMBIN TIME / INR 2023-03-01 09:12:00 Diane Zamudio [facility] ACTIVATED PARTIAL THRMPLAS LAURI 2023-03-01 09:12:00 Mya Eller [facility] FREE T3 2023-03-01 09:12:00 Jackie Zamudio [facility] PROCALCITONIN 2023-03-01 09:12:00 Jackie Zamudio [facility] EXTRA TUBE RED 2023-03-01 09:12:00 Burke Long [facility] POCT GLUCOSE (AUTOMATED) 2023-03-01 08:56:00 Blessing Long [facility] POCT GLUCOSE (AUTOMATED) 2023-03-01 08:56:00 Blessing Long [facility] POCT GLUCOSE (AUTOMATED) 2023-03-01 08:56:00 Blessing Long [facility] AC PANEL 20 + LACTIC ACID 2023-03-01 08:54:00 Rosemarie Zamudio [facility] AC PANEL 20 + LACTIC ACID 2023-03-01 08:54:00 Rosemarie Zamudio [facility] AC PANEL 20 + LACTIC ACID 2023-03-01 08:54:00 Rosemarie Zamudio [facility] POCT GLUCOSE (AUTOMATED) 2023-03-01 05:12:00 LickJasviro tt [facility] POCT GLUCOSE (AUTOMATED) 2023-03-01 05:12:00 Lick, Jasviro tt [facility] POCT GLUCOSE (AUTOMATED) 2023-03-01 05:12:00 Lick, Jasviro tt [facility] POCT GLUCOSE (AUTOMATED) 2023-03-01 01:36:00 Lick Jasviro tt [facility] POCT GLUCOSE (AUTOMATED) 2023-03-01 01:36:00 Lick, Jasviro tt [facility] POCT GLUCOSE (AUTOMATED) 2023-03-01 01:36:00 Teresak Jasviro [facility] AC PANEL 20 + LACTIC ACID 2023-02-28 21:05:00 Rosemarie Zamudio [facility] ACTIVATED PARTIAL THRMPLAS LAURI 2023-02-28 21:05:00 [facility] ACTIVATED PARTIAL THRMPLAS LAURI 2023-02-28 21:05:00 [facility] AC PANEL 20 + LACTIC ACID 2023-02-28 21:05:00 Rosemarie Zamudio [facility] ACTIVATED PARTIAL THRMPLAS LAURI 2023-02-28 21:05:00 [facility] AC PANEL 20 + LACTIC ACID 2023-02-28 21:05:00 Rosemarie Zamudio [facility] POCT GLUCOSE (AUTOMATED) 2023-02-28 20:45:00 LickBlessing [facility] POCT GLUCOSE (AUTOMATED) 2023-02-28 20:45:00 LickJasviro [facility] POCT GLUCOSE (AUTOMATED) 2023-02-28 20:45:00 Lick, Pro [facility] BASIC METABOLIC PANEL (NA, K, CL, CO2, GLUCOSE, BUN, CREATININE, CA) 2023-02-28 17:51:00 Jackie Zamudio [facility] PHOSPHORUS 2023-02-28 17:51:00 Jackie Zamudio [facility] N-TERMINAL PRO-BNP 2023-02-28 17:51:00 [facility] 2023-02-28 17:51:00 Jackie Zamudio [facility] BASIC METABOLIC PANEL (NA, K, CL, CO2, GLUCOSE, BUN, CREATININE, CA) 2023-02-28 17:51:00 Robb [facility] N-TERMINAL PRO-BNP 2023-02-28 17:51:00 [facility] 2023-02-28 17:51:00 Jackie Zamudio [facility] BASIC METABOLIC PANEL (NA, K, CL, CO2, GLUCOSE, BUN, CREATININE, CA) 2023-02-28 17:51:00 Robb [facility] N-TERMINAL PRO-BNP 2023-02-28 17:51:00 Robb [facility] DUPLEX ARTERIAL ARM RIGHT - BY VASCULAR LAB 2023-02-28 17:45:27 Robb [facility] DUPLEX ARTERIAL ARM RIGHT - BY VASCULAR LAB 2023-02-28 17:45:27 Robb [facility] DUPLEX ARTERIAL ARM RIGHT - BY VASCULAR LAB 2023-02-28 17:45:27 Robb [facility] POCT GLUCOSE (AUTOMATED) 2023-02-28 16:32:00 LickJasviro tt [facility] POCT GLUCOSE (AUTOMATED) 2023-02-28 16:32:00 Lick, Sco tt [facility] POCT GLUCOSE (AUTOMATED) 2023-02-28 16:32:00 LickJasviro tt [facility] AC PANEL 20 + LACTIC ACID 2023-02-28 14:55:00 Rosemarie Zamudio [facility] AC PANEL 20 + LACTIC ACID 2023-02-28 14:55:00 Rosemarie Zamudio [facility] AC PANEL 20 + LACTIC ACID 2023-02-28 14:55:00 Rosemarie Zamudio [facility] POCT GLUCOSE (AUTOMATED) 2023-02-28 12:39:00 Lick, Sco tt [facility] POCT GLUCOSE (AUTOMATED) 2023-02-28 12:39:00 Lick, Sco tt [facility] POCT GLUCOSE (AUTOMATED) 2023-02-28 12:39:00 Lick, Sco tt [facility] POCT GLUCOSE (AUTOMATED) 2023-02-28 12:38:00 Lick Sco [facility] POCT GLUCOSE (AUTOMATED) 2023-02-28 12:38:00 Lick, Sco tt [facility] POCT GLUCOSE (AUTOMATED) 2023-02-28 12:38:00 [facility] ACTIVATED PARTIAL THRMPLAS LAURI 2023-02-28 10:48:00 [facility] ACTIVATED PARTIAL THRMPLAS LAURI 2023-02-28 10:48:00 [facility] ACTIVATED PARTIAL THRMPLAS LAURI 2023-02-28 10:48:00 [facility] XR CHEST 1 2023-02-28 09:30:00 Jackie Zamudio [facility] XR CHEST 1 2023-02-28 09:30:00 Jackie Zamudio [place] [facility] CHEST 1 2023-02-28 09:30:00 Jackie Zamudio [facility] MAGNESIUM 2023-02-28 09:26:00 Jackie Zamudio [facility] PHOSPHORUS 2023-02-28 09:26:00 Jackie Zamudio [facility] THYROID STIMULATING HORMONE 2023-02-28 09:26:00 Jackie Zamudio [facility] FREE T4 2023-02-28 09:26:00 Jackie Zamudio [facility] FREE T3 2023-02-28 09:26:00 Jackie Zamudio [facility] HEPATIC FUNCTION PANEL ([id number]) (ALB,T.PRO,BILI T,BU/BC,ALT,AST,ALK PHOS) 2023-02-28 09:26:00 Jackie Zamudio [facility] DIGOXIN 2023-02-28 09:26:00 Jackie Zamudio [facility] PROCALCITONIN 2023-02-28 09:26:00 Jackie Zamudio [facility] CBC WITH DIFF 2023-02-28 09:26:00 Elena, [facility] BASIC METABOLIC PANEL (NA, K, CL, CO2, GLUCOSE, BUN, CREATININE, CA) 2023-02-28 09:26:[facility]23-02-28 09:26:00 Jackie Zamudio [facility] MAGNESIUM 2023-02-28 09:26:00 Jackie Zamudio [facility] FREE T4 2023-02-28 09:26:00 Jackie Zamudio [facility] THYROID STIMULATING HORMONE 2023-02-28 09:26:00 [facility] FUNCTION PANEL ([id number]) (ALB,T.PRO,BILI T,BU/BC,ALT,AST,ALK PHOS) 2023-02-28 09:26:00 [facility] METABOLIC PANEL (NA, K, CL, CO2, GLUCOSE, BUN, CREATININE, CA) 2023-02-28 09:26:00 Jackie Zamudio [facility] DIGOXIN 2023-02-28 09:26:00 Jackie Zamudio [facility] CBC WITH DIFF 2023-02-28 09:26:00 Elena [facility] FREE T3 2023-02-28 09:26:00 Jackie Zamudio [facility] PROCALCITONIN 2023-02-28 09:26:00 Jackie Zamudio [facility] PHOSPHORUS 2023-02-28 09:26:00 Jackie Zamudio [facility] MAGNESIUM 2023-02-28 09:26:00 Jackie Zamudio [facility] FREE T4 2023-02-28 09:26:00 Jackie Zamudio [facility] THYROID STIMULATING HORMONE 2023-02-28 09:26:00 [facility] HE[facility]IC FUNCTION PANEL ([id number]) (ALB,T.PRO,BILI T,BU/BC,ALT,AST,ALK PHOS) 2023-02-28 09:26:00 Robb [facility] BASIC METABOLIC PANEL (NA, K, CL, CO2, GLUCOSE, BUN, CREATININE, CA) 2023-02-28 09:26:00 [facility] 2023-02-28 09:26:00 Jackie Zamudio [facility] CBC WITH DIFF 2023-02-28 09:26:00 Ludwig Parker [facility] FREE T3 2023-02-28 09:26:00 Clarice Zamudioalisa [facility] PROCALCITONIN 2023-02-28 09:26:00 Robb Jackie [facility] POCT GLUCOSE (AUTOMATED) 2023-02-28 09:25:00 Blessing Long [facility] POCT GLUCOSE (AUTOMATED) 2023-02-28 09:25:00 TreesakBlessing [facility] POCT GLUCOSE (AUTOMATED) 2023-02-28 09:25:00 LickJasviro [facility] POCT GLUCOSE (AUTOMATED) 2023-02-28 05:08:00 LickJasviro [facility] POCT GLUCOSE (AUTOMATED) 2023-02-28 05:08:00 LickJasviro [facility] POCT GLUCOSE (AUTOMATED) 2023-02-28 05:08:00 LickJasviro [facility] POCT GLUCOSE (AUTOMATED) 2023-02-28 01:47:00 LickJasviro alfred [facility] POCT GLUCOSE (AUTOMATED) 2023-02-28 01:47:00 LickJasviro tt [facility] POCT GLUCOSE (AUTOMATED) 2023-02-28 01:47:00 LickJasviro alfred [facility] ACTIVATED PARTIAL THRMPLAS LAURI 2023-02-27 21:09:00 Rafita [facility] POCT GLUCOSE (AUTOMATED) 2023-02-27 21:09:00 LickBlessing [facility] ACTIVATED PARTIAL THRMPLAS LAURI 2023-02-27 21:09:00 Rafita [facility] POCT GLUCOSE (AUTOMATED) 2023-02-27 21:09:00 LickBlessing tt [facility] ACTIVATED PARTIAL THRMPLAS LAURI 2023-02-27 21:09:00 Rafita [facility] POCT GLUCOSE (AUTOMATED) 2023-02-27 21:09:00 LickJasviro tt [facility] POCT GLUCOSE (AUTOMATED) 2023-02-27 17:12:00 LickJasviro tt [facility] POCT GLUCOSE (AUTOMATED) 2023-02-27 17:12:00 Lick, Jasviro tt [facility] POCT GLUCOSE (AUTOMATED) 2023-02-27 17:12:00 LickJasviro tt [facility] POCT GLUCOSE (AUTOMATED) 2023-02-27 12:59:00 LickJasviro tt [facility] POCT GLUCOSE (AUTOMATED) 2023-02-27 12:59:00 LickJasviro tt [facility] POCT GLUCOSE (AUTOMATED) 2023-02-27 12:59:00 Lick, Jasviro tt [facility] POCT GLUCOSE (AUTOMATED) 2023-02-27 12:12:00 LickJasviro tt [facility] POCT GLUCOSE (AUTOMATED) 2023-02-27 12:12:00 Lick, Jasviro tt [facility] POCT GLUCOSE (AUTOMATED) 2023-02-27 12:12:00 LickJasviro tt [facility] XR CHEST 1 VW 2023-02-27 11:55:00 Jackie Zamudio [facility] XR CHEST 1 VW 2023-02-27 11:55:00 Jackie Zamudio [facility] XR CHEST 1 VW 2023-02-27 11:55:00 Jackie Zamudio [facility] POCT GLUCOSE (AUTOMATED) 2023-02-27 11:23:00 LickJasviro tt [facility] POCT GLUCOSE (AUTOMATED) 2023-02-27 11:23:00 LickJasviro tt [facility] POCT GLUCOSE (AUTOMATED) 2023-02-27 11:23:00 LickBlessing tt [facility] POCT GLUCOSE (AUTOMATED) 2023-02-27 10:17:00 Lick, Jasviro tt [facility] POCT GLUCOSE (AUTOMATED) 2023-02-27 10:17:00 Lick, Jasviro tt [facility] POCT GLUCOSE (AUTOMATED) 2023-02-27 10:17:00 Lick, Jasviro tt [facility] POCT GLUCOSE (AUTOMATED) 2023-02-27 09:19:00 Lick, Jasviro tt [facility] POCT GLUCOSE (AUTOMATED) 2023-02-27 09:19:00 Lick, Jasviro tt [facility] POCT GLUCOSE (AUTOMATED) 2023-02-27 09:19:00 Lick Blessing tt [facility] MAGNESIUM 2023-02-27 08:26:00 Jackie Zamudio [facility] PHOSPHORUS 2023-02-27 08:26:00 Jackie Zamudio [facility] CORTISOL AM 2023-02-27 08:26:00 Jackie Zamudio [facility] THYROID STIMULATING HORMONE 2023-02-27 08:26:00 Robb [facility] FREE T4 2023-02-27 08:26:00 Jackie Zamudio [facility] FREE T3 2023-02-27 08:26:00 Jackie Zamudio [facility] HEPATIC FUNCTION PANEL (28992) (ALB,T.PRO,BILI T,BU/BC,ALT,AST,ALK PHOS) 2023-02-27 08:26:00 Clarice Zamudioalisa [facility] DIGOXIN 2023-02-27 08:26:00 Jackie Zamudio [facility] PROCALCITONIN 2023-02-27 08:26:00 Jackie Zamudio [facility] BASIC METABOLIC PANEL (NA, K, CL, CO2, GLUCOSE, BUN, CREATININE, CA) 2023-02-27 08:26:00 [facility] ACTIVATED PARTIAL THRMPLAS LAURI 2023-02-27 08:26:00 Mya Eller [facility] CBC WITH DIFF 2023-02-27 08:26:00 [facility] 2023-02-27 08:26:00 Jackie Zamudio [facility] MAGNESIUM 2023-02-27 08:26:00 Jackie Zamudio [facility] CORTISOL AM 2023-02-27 08:26:00 Jackie Zamudio [facility] FREE T4 2023-02-27 08:26:00 Jackie Zamudio [facility] THYROID STIMULATING HORMONE 2023-02-27 08:26:00 [facility] HEPATIC FUNCTION PANEL ([id number]) (ALB,T.PRO,BILI T,BU/BC,ALT,AST,ALK PHOS) 2023-02-27 08:26:00 Robb [facility] BASIC METABOLIC PANEL (NA, K, CL, CO2, GLUCOSE, BUN, CREATININE, CA) 2023-02-27 08:26:00 Jackie Zamudio [facility] DIGOXIN 2023-02-27 08:26:00 Jackie Zamudio [facility] CBC WITH DIFF 2023-02-27 08:26:00 Ludwig Parker [facility] ACTIVATED PARTIAL THRMPLAS LAURI 2023-02-27 08:26:[address] [facility] FREE T3 2023-02-27 08:26:00 Jackie Zamudio [facility] PROCALCITONIN 2023-02-27 08:26:00 [facility]23-02-27 08:26:00 Jackie Zamudio [facility] MAGNESIUM 2023-02-27 08:26:00 Jackie Zamudio [facility] CORTISOL AM 2023-02-27 08:26:00 Jackie Zamudio [facility] FREE T4 2023-02-27 08:26:00 Jackie Zamudio [facility] THYROID STIMULATING HORMONE 2023-02-27 08:26:00 Robb, [facility] HEPATIC FUNCTION PANEL ([id number]) (ALB,T.PRO,BILI T,BU/BC,ALT,AST,ALK PHOS) 2023-02-27 08:26:00 Robb [facility] BASIC METABOLIC PANEL (NA, K, CL, CO2, GLUCOSE, BUN, CREATININE, CA) 2023-02-27 08:26:00 Robb [facility] DIGOXIN 2023-02-27 08:26:00 Robb Jackie [facility] CBC WITH DIFF 2023-02-27 08:26:00 Anastacia Parkerchary [facility] ACTIVATED PARTIAL THRMPLAS LAURI 2023-02-27 08:26:[address] [facility] FREE T3 2023-02-27 08:26:00 Robb Jackie [facility] PROCALCITONIN 2023-02-27 08:26:00 Clarice Zamudioalisa [facility] POCT GLUCOSE (AUTOMATED) 2023-02-27 08:15:00 LickBlessing [facility] POCT GLUCOSE (AUTOMATED) 2023-02-27 08:15:00 LickBlessing [facility] POCT GLUCOSE (AUTOMATED) 2023-02-27 08:15:00 TeresakJasviro [facility] POCT GLUCOSE (AUTOMATED) 2023-02-27 07:10:00 LickBlessing [facility] POCT GLUCOSE (AUTOMATED) 2023-02-27 07:10:00 LickJasviro [facility] POCT GLUCOSE (AUTOMATED) 2023-02-27 07:10:00 LickJasviro [facility] POCT GLUCOSE (AUTOMATED) 2023-02-27 06:05:00 LickJasviro [facility] POCT GLUCOSE (AUTOMATED) 2023-02-27 06:05:00 LickJasviro [facility] POCT GLUCOSE (AUTOMATED) 2023-02-27 06:05:00 LickJasviro tt [facility] POCT GLUCOSE (AUTOMATED) 2023-02-27 05:11:00 LickJasviro tt [facility] POCT GLUCOSE (AUTOMATED) 2023-02-27 05:11:00 LickJasviro tt [facility] POCT GLUCOSE (AUTOMATED) 2023-02-27 05:11:00 LickJasviro tt [facility] POCT GLUCOSE (AUTOMATED) 2023-02-27 04:24:00 LickJasviro tt [facility] POCT GLUCOSE (AUTOMATED) 2023-02-27 04:24:00 LickJasviro tt [facility] POCT GLUCOSE (AUTOMATED) 2023-02-27 04:24:00 Lick, Jasviro tt [facility] POCT GLUCOSE (AUTOMATED) 2023-02-27 01:13:00 LickJasviro tt [facility] POCT GLUCOSE (AUTOMATED) 2023-02-27 01:13:00 LickJasviro tt [facility] POCT GLUCOSE (AUTOMATED) 2023-02-27 01:13:00 LickJasviro tt [facility] POCT GLUCOSE (AUTOMATED) 2023-02-26 21:10:00 LickJasviro tt [facility] POCT GLUCOSE (AUTOMATED) 2023-02-26 21:10:00 Lick, Jasviro tt [facility] POCT GLUCOSE (AUTOMATED) 2023-02-26 21:10:00 Lick, Jasviro tt [facility] CBC WITH DIFF 2023-02-26 21:07:00 Jackie Zamudio [facility] AC PANEL 20 + LACTIC ACID 2023-02-26 21:07:00 Rosemarie Zamudio [facility] ACTIVATED PARTIAL THRMPLAS LAURI 2023-02-26 21:07:00 Rafita [facility] CBC WITH DIFF 2023-02-26 21:07:00 Jackie Zamudio [facility] ACTIVATED PARTIAL THRMPLAS LAURI 2023-02-26 21:07:00 Rafita [facility] AC PANEL 20 + LACTIC ACID 2023-02-26 21:07:00 Rosemarie Zamudio [facility] CBC WITH DIFF 2023-02-26 21:07:00 Jackie Zamudio [facility] ACTIVATED PARTIAL THRMPLAS LAURI 2023-02-26 21:07:00 Mya Eller [facility] AC PANEL 20 + LACTIC ACID 2023-02-26 21:07:00 Rosemarie Zamudio [facility] POCT GLUCOSE (AUTOMATED) 2023-02-26 16:29:00 LickJasviro tt [facility] POCT GLUCOSE (AUTOMATED) 2023-02-26 16:29:00 Lick, Jasviro tt [facility] POCT GLUCOSE (AUTOMATED) 2023-02-26 16:29:00 Lick, Jasviro tt [facility] POCT GLUCOSE (AUTOMATED) 2023-02-26 14:35:00 Lick, Jasviro [facility] POCT GLUCOSE (AUTOMATED) 2023-02-26 14:35:00 LickJasviro [facility] POCT GLUCOSE (AUTOMATED) 2023-02-26 14:35:00 LickJasviro tt [facility] TRANSFUSE PACKED RBC 2023-02-26 13:30:00 [facility] 2023-02-26 13:30:00 Levi [facility] TRANSFUSE PACKED RBC 2023-02-26 13:30:00 Levi [facility] POCT GLUCOSE (AUTOMATED) 2023-02-26 13:27:00 LickJasviro alfred [facility] POCT GLUCOSE (AUTOMATED) 2023-02-26 13:27:00 LickJasviro [facility] POCT GLUCOSE (AUTOMATED) 2023-02-26 13:27:00 Lick, Jasviro tt [facility] PREPARE PACKED RBC 2023-02-26 12:56:29 Ghazal Sims Un [facility] PREPARE PACKED RBC 2023-02-26 12:56:29 Ghazal Sims Un [facility] PREPARE PACKED RBC 2023-02-26 12:56:29 Ghazal Sims Un [facility] POCT GLUCOSE (AUTOMATED) 2023-02-26 12:27:00 Lick, Sco tt [facility] POCT GLUCOSE (AUTOMATED) 2023-02-26 12:27:00 Lick, Sco tt [facility] POCT GLUCOSE (AUTOMATED) 2023-02-26 12:27:00 Lick, Sco tt [facility] HB ABO GROUPING 2023-02-26 11:43:00 [facility] HB ABO GROUPING 2023-02-26 11:43:00 [facility] HB ABO GROUPING 2023-02-26 11:43:00 Vu, [facility] ACTIVATED PARTIAL THRMPLAS LAURI 2023-02-26 11:29:00 [facility] ACTIVATED PARTIAL THRMPLAS LAURI 2023-02-26 11:29:00 [facility] ACTIVATED PARTIAL THRMPLAS LAURI 2023-02-26 11:29:00 [facility] POCT GLUCOSE (AUTOMATED) 2023-02-26 11:25:00 Lick, Jasviro tt [facility] POCT GLUCOSE (AUTOMATED) 2023-02-26 11:25:00 Lick, Sco tt [facility] POCT GLUCOSE (AUTOMATED) 2023-02-26 11:25:00 Lick, Sco tt [facility] POCT GLUCOSE (AUTOMATED) 2023-02-26 10:27:00 Lick, Sco tt [facility] POCT GLUCOSE (AUTOMATED) 2023-02-26 10:27:00 Lick, Sco tt [facility] POCT GLUCOSE (AUTOMATED) 2023-02-26 10:27:00 Lick, Sco tt [facility] XR CHEST 1 VW 2023-02-26 10:20:00 Jackie Zamudio [facility] XR CHEST 1 2023-02-26 10:20:00 Jackie Zamudio [facility] XR CHEST 1 VW 2023-02-26 10:20:00 Jackie Zamudio [facility] MAGNESIUM 2023-02-26 09:44:00 Jackie Zamudio [facility] PHOSPHORUS 2023-02-26 09:44:00 Jackie Zamudio [facility] CORTISOL AM 2023-02-26 09:44:00 Jackie Zamudio [facility] THYROID STIMULATING HORMONE 2023-02-26 09:44:00 [facility] 2023-02-26 09:44:00 Jackie Zamudio [facility] FREE T3 2023-02-26 09:44:00 Jackie Zamudio [facility] HEPATIC FUNCTION PANEL ([id number]) (ALB,T.PRO,BILI T,BU/BC,ALT,AST,ALK PHOS) 2023-02-26 09:44:00 [facility] WITH DIFF 2023-02-26 09:44:00 Jackie Zamudio [facility] BASIC METABOLIC PANEL (NA, K, CL, CO2, GLUCOSE, BUN, CREATININE, CA) 2023-02-26 09:44:00 [facility] LIPID PANEL ([id number])(TOTAL CHOLESTEROL, TRIGLYCERIDES, HDL) 2023-02-26 09:44:00 [facility] LIPASE 2023-02-26 09:44:00 Kae Boyce [facility] PHOSPHORUS 2023-02-26 09:44:00 Jackie Zamudio [facility] LIPASE 2023-02-26 09:44:00 Kae Boyce [facility] MAGNESIUM 2023-02-26 09:44:00 Jackie Zamudio [facility] CORTISOL AM 2023-02-26 09:44:00 Jackie Zamudio [facility] FREE T4 2023-02-26 09:44:00 Jackie Zamudio [facility] THYROID STIMULATING HORMONE 2023-02-26 09:44:00 [facility] FUNCTION PANEL ([id number]) (ALB,T.PRO,BILI T,BU/BC,ALT,AST,ALK PHOS) 2023-02-26 09:44:00 Jackie Zamudio [facility] BASIC METABOLIC PANEL (NA, K, CL, CO2, GLUCOSE, BUN, CREATININE, CA) 2023-02-26 09:44:00 Jackie Zamudio [facility] LIPID PANEL ([id number])(TOTAL CHOLESTEROL, TRIGLYCERIDES, HDL) 2023-02-26 09:44:00 Jackie Zamudio [facility] CBC WITH DIFF 2023-02-26 09:44:00 Jackie Zamudio [facility] FREE T3 2023-02-26 09:44:00 Jackie Zamudio [facility] PHOSPHORUS 2023-02-26 09:44:00 Jackie Zamudio [facility] LIPASE 2023-02-26 09:44:00 [facility] 2023-02-26 09:44:00 Jackie Zamudio [facility] CORTISOL AM 2023-02-26 09:44:00 Jackie Zamudio [facility] FREE T4 2023-02-26 09:44:00 Jackie Zamudio [facility] THYROID STIMULATING HORMONE 2023-02-26 09:44:00 [facility] HE[facility] FUNCTION PANEL ([id number]) (ALB,T.PRO,BILI T,BU/BC,ALT,AST,ALK PHOS) 2023-02-26 09:44:00 Jackie Zamudio [facility] BASIC METABOLIC PANEL (NA, K, CL, CO2, GLUCOSE, BUN, CREATININE, CA) 2023-02-26 09:44:00 Jackie Zamudio [facility] LIPID PANEL ([id number])(TOTAL CHOLESTEROL, TRIGLYCERIDES, HDL) 2023-02-26 09:44:00 Jackie Zamudio [facility] CBC WITH DIFF 2023-02-26 09:44:00 Jackie Zamudio [facility] FREE T3 2023-02-26 09:44:00 Jackie Zamudio [facility] POCT GLUCOSE (AUTOMATED) 2023-02-26 09:41:00 Blessing Long tt [facility] POCT GLUCOSE (AUTOMATED) 2023-02-26 09:41:00 Lick, Jasviro tt [facility] POCT GLUCOSE (AUTOMATED) 2023-02-26 09:41:00 Lick, Jasviro tt [facility] POCT GLUCOSE (AUTOMATED) 2023-02-26 08:34:00 Lick, Jasviro tt [facility] POCT GLUCOSE (AUTOMATED) 2023-02-26 08:34:00 Lick, Jasviro tt [facility] POCT GLUCOSE (AUTOMATED) 2023-02-26 08:34:00 Lick, Jasviro tt [facility] POCT GLUCOSE (AUTOMATED) 2023-02-26 07:41:00 Lick, Jasviro tt [facility] POCT GLUCOSE (AUTOMATED) 2023-02-26 07:41:00 Lick, Jasviro tt [facility] POCT GLUCOSE (AUTOMATED) 2023-02-26 07:41:00 Lick, Jasviro tt [facility] POCT GLUCOSE (AUTOMATED) 2023-02-26 06:42:00 Lick, Jasviro tt [facility] POCT GLUCOSE (AUTOMATED) 2023-02-26 06:42:00 Lick, Jasviro [facility] POCT GLUCOSE (AUTOMATED) 2023-02-26 06:42:00 Lick, Jasviro tt [facility] POCT GLUCOSE (AUTOMATED) 2023-02-26 05:38:00 Lick, Jasviro tt [facility] POCT GLUCOSE (AUTOMATED) 2023-02-26 05:38:00 Lick, Jasviro tt [facility] POCT GLUCOSE (AUTOMATED) 2023-02-26 05:38:00 Lick, Jasviro tt [facility] POCT GLUCOSE (AUTOMATED) 2023-02-26 04:28:00 Lick, Sco tt [facility] POCT GLUCOSE (AUTOMATED) 2023-02-26 04:28:00 Lick, Sco tt [facility] POCT GLUCOSE (AUTOMATED) 2023-02-26 04:28:00 Lick, Sco tt [facility] POCT GLUCOSE (AUTOMATED) 2023-02-26 03:32:00 Lick, Sco tt [facility] POCT GLUCOSE (AUTOMATED) 2023-02-26 03:32:00 Lick, Sco tt [facility] POCT GLUCOSE (AUTOMATED) 2023-02-26 03:32:00 Lick, Sco tt [facility] POCT GLUCOSE (AUTOMATED) 2023-02-26 01:05:00 Lick, Sco tt [facility] POCT GLUCOSE (AUTOMATED) 2023-02-26 01:05:00 Lick, Sco tt [facility] POCT GLUCOSE (AUTOMATED) 2023-02-26 01:05:00 Lick, Sco tt [facility] POCT GLUCOSE (AUTOMATED) 2023-02-25 20:57:00 Lick, Sco tt [facility] POCT GLUCOSE (AUTOMATED) 2023-02-25 20:57:00 Lick, Sco tt [facility] POCT GLUCOSE (AUTOMATED) 2023-02-25 20:57:00 Lick, Jasviro tt [facility] DIGOXIN 2023-02-25 20:50:00 Jackie Zamudio [facility] ACTIVATED PARTIAL THRMPLAS LAURI 2023-02-25 20:50:00 Rafita [facility] PROCALCITONIN 2023-02-25 20:50:00 Jackie Zamudio [facility] MISCELLANEOUS SEND OUT TEST 2023-02-25 20:50:[address] [facility] 2023-02-25 20:50:00 Diane Zamudio [facility] DIGOXIN 2023-02-25 20:50:00 Jackie Zamudio [facility] ACTIVATED PARTIAL THRMPLAS LAURI 2023-02-25 20:50:00 Rafita [facility] FUNGUS (BLOOD) CULTURE 2023-02-25 20:50:00 Diane Zamudio [facility] MISCELLANEOUS SEND OUT TEST 2023-02-25 20:50:00 Jackie Zamudio [facility] PROCALCITONIN 2023-02-25 20:50:00 Jackie Zamudio [facility] DIGOXIN 2023-02-25 20:50:00 Jackie Zamudio [facility] ACTIVATED PARTIAL THRMPLAS LAURI 2023-02-25 20:50:00 Mya Eller [facility] FUNGUS (BLOOD) CULTURE 2023-02-25 20:50:00 Diane Zamudio [facility] MISCELLANEOUS SEND OUT TEST 2023-02-25 20:50:00 Jackie Zamudio [facility] PROCALCITONIN 2023-02-25 20:50:00 Jackie Zamudio [facility] POCT GLUCOSE (AUTOMATED) 2023-02-25 17:24:00 LicJasvir garciao alfred [facility] POCT GLUCOSE (AUTOMATED) 2023-02-25 17:24:00 LickJasviro tt [facility] POCT GLUCOSE (AUTOMATED) 2023-02-25 17:24:00 LicJasvir garciao [facility] XR CHEST 1 VW 2023-02-25 14:06:00 Samira Garcia [facility] XR CHEST 1 VW 2023-02-25 14:06:00 Samira Garcia [facility] XR CHEST 1 VW 2023-02-25 14:06:00 Samira Garcia [facility] POCT GLUCOSE (AUTOMATED) 2023-02-25 13:14:00 Jasvir Longo alfred [facility] POCT GLUCOSE (AUTOMATED) 2023-02-25 13:14:00 LickJasviro alfred [facility] POCT GLUCOSE (AUTOMATED) 2023-02-25 13:14:00 LickJasviro tt [facility] MAGNESIUM 2023-02-25 09:14:00 Shavon Cuellar [facility] PHOSPHORUS 2023-02-25 09:14:00 Alisa [facility] CBC WITH DIFF 2023-02-25 09:14:00 Tania Biswas [facility] Areaelmo [facility] BASIC METABOLIC PANEL (NA, K, CL, CO2, GLUCOSE, BUN, CREATININE, CA) 2023-02-25 09:14:00 [facility] (12728[facility] (ALB,T.PRO,BILI T,BU/BC,ALT,AST,ALK PHOS) 2023-02-25 09:14:00 [facility] ACT[facility] PARTIAL THRMPLAS LAURI 2023-02-25 09:14:00 Rafita [facility] PHOSPHORUS 2023-02-25 09:14:00 Alisa [facility] MAGNESIUM 2023-02-25 09:14[facility] (69870) (ALB,T.PRO,BILI T,BU/BC,ALT,AST,ALK PHOS) 2023-02-25 09:14:00 True [facility] BASIC METABOLIC PANEL (NA, K, CL, CO2, GLUCOSE, BUN, CREATININE, CA) 2023-02-25 09:14:00 [facility] WITH DIFF 2023-02-25 09:14:00 Tania Biswas [facility] ACTIVATED PARTIAL THRMPLAS LAURI 2023-02-25 09:14:00 Rafita [facility] PHOSPHORUS 2023-02-25 09:14:00 Alisa [facility] MAGNESIUM 2023-02-25 09:14:00 [facility]CTION PANEL ([id number]) (ALB,T.PRO,BILI T,BU/BC,ALT,AST,ALK PHOS) 2023-02-25 09:14:00 True [facility] BASIC METABOLIC PANEL (NA, K, CL, CO2, GLUCOSE, BUN, CREATININE, CA) 2023-02-25 09:14:00 True [facility] CBC WITH DIFF 2023-02-25 09:14:00 True [facility] ACTIVATED PARTIAL THRMPLAS LAURI 2023-02-25 09:14:00 Rafita [facility] POCT GLUCOSE (AUTOMATED) 2023-02-25 09:13:00 Blessing Long tt [facility] POCT GLUCOSE (AUTOMATED) 2023-02-25 09:13:00 LickJasviro tt [facility] POCT GLUCOSE (AUTOMATED) 2023-02-25 09:13:00 TeresakJasviro tt [facility] AC PANEL 20 + LACTIC ACID 2023-02-25 05:11:00 Methani [facility] AC PANEL 20 + LACTIC ACID 2023-02-25 05:11:00 Methani [facility] AC PANEL 20 + LACTIC ACID 2023-02-25 05:11:00 Methanmackenzie [facility] POCT GLUCOSE (AUTOMATED) 2023-02-25 00:50:00 LickJasviro tt [facility] POCT GLUCOSE (AUTOMATED) 2023-02-25 00:50:00 TeresakJasviro tt [facility] POCT GLUCOSE (AUTOMATED) 2023-02-25 00:50:00 Blessing Long [facility] AC PANEL 20 + LACTIC ACID 2023-02-24 21:20:00 Methanmackenzie [facility] AC PANEL 20 + LACTIC ACID 2023-02-24 21:20:00 Methanmackenzie [facility] AC PANEL 20 + LACTIC ACID 2023-02-24 21:20:00 Methanmackenzie [facility] PHOSPHORUS 2023-02-24 21:18:00 [facility] PART[facility] THRMPLAS LAURI 2023-02-24 21:18:00 Rafita [facility] PHOSPHORUS 2023-02-24 21:18:00 [facility] PARTIAL THRMPLAS LAURI 2023-02-24 21:18:00 Rafita [facility] PHOSPHORUS 2023-02-24 21:18:00 [facility]IV[facility] PARTIAL THRMPLAS LAURI 2023-02-24 21:18:00 Rafita [facility] POCT GLUCOSE (AUTOMATED) 2023-02-24 20:29:00 Lick, Jasviro tt [facility] POCT GLUCOSE (AUTOMATED) 2023-02-24 20:29:00 Blessing Long [facility] POCT GLUCOSE (AUTOMATED) 2023-02-24 20:29:00 Blessing Long tt [facility] US GALL BLADDER 2023-02-24 20:10:00 True Tania [facility] GALL BLADDER 2023-02-24 20:10:00 True Tania [facility] GALL BLADDER 2023-02-24 20:10:00 True Tania [facility] POCT GLUCOSE (AUTOMATED) 2023-02-24 17:47:00 Blessing Long [facility] POCT GLUCOSE (AUTOMATED) 2023-02-24 17:47:00 Blessing Long [facility] POCT GLUCOSE (AUTOMATED) 2023-02-24 17:47:00 Blessing Long [facility] AC PANEL 20 + LACTIC ACID 2023-02-24 13:45:00 [facility]EL 20 + LACTIC ACID 2023-02-24 13:45:00 [facility] AC PANEL 20 + LACTIC ACID 2023-02-24 13:45:00 ShevlinAnastacia [facility] ACTIVATED PARTIAL THRMPLAS LAURI 2023-02-24 09:19:00 [facility] ACTIVATED PARTIAL THRMPLAS LAURI 2023-02-24 09:19:00 Rafita [facility] ACTIVATED PARTIAL THRMPLAS LAURI 2023-02-24 09:19:00 Rafita [facility] POCT GLUCOSE (AUTOMATED) 2023-02-24 09:18:00 Blessing Long [facility] POCT GLUCOSE (AUTOMATED) 2023-02-24 09:18:00 Blessing Long [facility] POCT GLUCOSE (AUTOMATED) 2023-02-24 09:18:00 Blessing Long [facility] URINE CULTURE 2023-02-24 08:21:00 [facility]-24 08:21:00 Elena, [facility] URINE CULTURE 2023-02-24 08:21:00 Elena [facility] MAGNESIUM 2023-02-24 07:26:00 Alisa [facility] PHOSPHORUS 2023-02-24 07:26:00 Alisa [facility] CBC WITHOUT DIFF 2023-02-24 07:26:00 [facility]IC METABOLIC PANEL (NA, K, CL, CO2, GLUCOSE, BUN, CREATININE, CA) 2023-02-24 07:26:00 Elena [facility] HEPATIC FUNCTION PANEL ([id number]) (ALB,T.PRO,BILI T,BU/BC,ALT,AST,ALK PHOS) 2023-02-24 07:26:00 Bryan [facility] CBC WITH DIFF 2023-02-24 07:26:00 Bryan [facility] FREE T3 2023-02-24 07:26:00 True [facility] FREE T4 2023-02-24 07:26:00 True [facility] LIPID PANEL ([id number])(TOTAL CHOLESTEROL, TRIGLYCERIDES, HDL) 2023-02-24 07:26:00 True [facility] PHOSPHORUS 2023-02-24 07:26:00 [facility] 2023-02-24 07:26:00 Alisa [facility] FREE T4 2023-02-24 07:26:00 True [facility] HEPATIC FUNCTION PANEL ([id number]) (ALB,T.PRO,BILI T,BU/BC,ALT,AST,ALK PHOS) 2023-02-24 07:26:00 Bryan [facility] BASIC METABOLIC PANEL (NA, K, CL, CO2, GLUCOSE, BUN, CREATININE, CA) 2023-02-24 07:26:00 Elena, [facility] LIPID PANEL ([id number])(TOTAL CHOLESTEROL, TRIGLYCERIDES, HDL) 2023-02-24 07:26:00 [facility] WITHOUT DIFF 2023-02-24 07:26:00 Rafita [facility] CBC WITH DIFF 2023-02-24 07:26:00 Bryan [facility] FREE T3 2023-02-24 07:26:00 [facility] 2023-02-24 07:26:00 Alisa [facility] MAGNESIUM 2023-02-24 07:26:00 [facility] FREE T4 2023-02-24 07:26:00 True [facility] HEPATIC FUNCTION PANEL ([id number]) (ALB,T.PRO,BILI T,BU/BC,ALT,AST,ALK PHOS) 2023-02-24 07:26:00 Bryan [facility] BASIC METABOLIC PANEL (NA, K, CL, CO2, GLUCOSE, BUN, CREATININE, CA) 2023-02-24 07:26:00 Elena [facility] LIPID PANEL ([id number])(TOTAL CHOLESTEROL, TRIGLYCERIDES, HDL) 2023-02-24 07:26:00 True [facility] CBC WITHOUT DIFF 2023-02-24 07:26:00 Rafita [facility] CBC WITH DIFF 2023-02-24 07:26:00 Bryan [facility] FREE T3 2023-02-24 07:26:00 [facility] AC PANEL 20 + LACTIC ACID 2023-02-24 07:23:[address] [facility] AC PANEL 20 + LACTIC ACID 2023-02-24 07:23:[address] [facility] AC PANEL 20 + LACTIC ACID 2023-02-24 07:23:[address] [facility] CLOSTRIDIUM DIFFICILE TOXIN 2023-02-24 07:19:00 Lashay Samayoa [facility] CLOSTRIDIUM DIFFICILE TOXIN 2023-02-24 07:19:00 Lashay Samayoa jass [facility] CLOSTRIDIUM DIFFICILE TOXIN 2023-02-24 07:19:00 Lashay Samayoa [facility] BLOOD CULTURE SCREEN 2023-02-24 05:36:00 ElenaAnastacia cochranLudwig [facility] CORTISOL PM SERUM 2023-02-24 05:36:00 Ludwig Parker [facility] THYROID STIMULATING HORMONE 2023-02-24 05:36:00 Elena, [facility] FUNGUS (BLOOD) CULTURE 2023-02-24 05:36:00 ShevlinHannah cochran [facility] BLOOD CULTURE SCREEN 2023-02-24 05:36:00 ElenaAnastacia cochranLudwig [facility] CORTISOL PM SERUM 2023-02-24 05:36:00 Ludwig Parker [facility] THYROID STIMULATING HORMONE 2023-02-24 05:36:00 [facility] FUNGUS (BLOOD) CULTURE 2023-02-24 05:36:00 ElenaHannah cochran [facility] BLOOD CULTURE SCREEN 2023-02-24 05:36:00 ShevlinAnastacia cochranLudwig [facility] CORTISOL PM SERUM 2023-02-24 05:36:00 Ludwig Parker [facility] THYROID STIMULATING HORMONE 2023-02-24 05:36:00 ElenaAnastacia [facility] FUNGUS (BLOOD) CULTURE 2023-02-24 05:36:00 Hannah Parker [facility] POCT GLUCOSE (AUTOMATED) 2023-02-24 05:17:00 TeresakBlessing [facility] POCT GLUCOSE (AUTOMATED) 2023-02-24 05:17:00 TeresakJasviro alfred [facility] POCT GLUCOSE (AUTOMATED) 2023-02-24 05:17:00 TeresakBlessing [facility] SPUTUM CULTURE 2023-02-24 02:52:00 Ludwig Parker [facility] SPUTUM CULTURE 2023-02-24 02:52:00 ShevlinHannah cochranry Unive [facility] SPUTUM CULTURE 2023-02-24 02:52:00 ShevlinLudwig cochran [facility] VANCOMYCIN RANDOM LEVEL 2023-02-24 02:49:[address] [facility] DIGOXIN 2023-02-24 02:49:00 [facility]IG[facility] 2023-02-24 02:49:[address] [facility] VANCOMYCIN RANDOM LEVEL 2023-02-24 02:49:00 Lick, [facility] DIGOXIN 2023-02-24 02:49:00 Elena [facility] VANCOMYCIN RANDOM LEVEL 2023-02-24 02:49:[address] [facility] AC PANEL 20 + LACTIC ACID 2023-02-24 01:20:00 Methanmackenzie [facility] AC PANEL 20 + LACTIC ACID 2023-02-24 01:20:00 Methanmackenzie [facility] AC PANEL 20 + LACTIC ACID 2023-02-24 01:20:00 Methanmackenzie [facility] AC PANEL 20 + LACTIC ACID 2023-02-23 21:15:00 Methanmackenzie [facility] AC PANEL 20 + LACTIC ACID 2023-02-23 21:15:00 Methanmackenzie [facility] AC PANEL 20 + LACTIC ACID 2023-02-23 21:15:00 Methanmackenzie [facility] AC PANEL 20 + LACTIC ACID 2023-02-23 18:04:00 Methanmackenzie [facility] AC PANEL 20 + LACTIC ACID 2023-02-23 18:04:00 Methanmackenzie [facility] AC PANEL 20 + LACTIC ACID 2023-02-23 18:04:00 Methanmackenzie [facility] EKG-12 LEAD 2023-02-23 17:58:24 Marilyn Noe [facility] EKG-12 LEAD 2023-02-23 17:58:24 Marilyn Noe [facility] EKG-12 LEAD 2023-02-23 17:58:24 Marilyn Noe [facility] TRANSFUSE PACKED RBC 2023-02-23 17:05:00 Elena [facility] TRANSFUSE PACKED RBC 2023-02-23 17:05:00 Shevlin, [facility] TRANSFUSE PACKED RBC 2023-02-23 17:05:00 Elena [facility] PREPARE PACKED RBC 2023-02-23 16:56:48 ShevlinLudwig [facility] PREPARE PACKED RBC 2023-02-23 16:56:48 Ludwig [facility] PREPARE PACKED RBC 2023-02-23 16:56:48 [facility] VANCOMYCIN RANDOM LEVEL 2023-02-23 16:08:00 Rafita [facility] PHOSPHORUS 2023-02-23 16:08:00 [facility] ACTIVATED PARTIAL THRMPLAS LAURI 2023-02-23 16:08:00 Rafita [facility] PHOSPHORUS 2023-02-23 16:08:00 [facility] VANCOMYCIN RANDOM LEVEL 2023-02-23 16:08:00 Rafita [facility] ACTIVATED PARTIAL THRMPLAS LAURI 2023-02-23 16:08:00 Rafita [facility] PHOSPHORUS 2023-02-23 16:08:00 [facility] VANCOMYCIN RANDOM LEVEL 2023-02-23 16:08:00 Rafita [facility] ACTIVATED PARTIAL THRMPLAS LAURI 2023-02-23 16:08:00 Rafita [facility] AC PANEL 20 + LACTIC ACID 2023-02-23 12:28:00 Carli [facility] AC PANEL 20 + LACTIC ACID 2023-02-23 12:28:00 Carli [facility] AC PANEL 20 + LACTIC ACID 2023-02-23 12:28:00 Natalimackenzie [facility] POCT GLUCOSE (AUTOMATED) 2023-02-23 08:17:00 Berhane Blessing alfred [facility] POCT GLUCOSE (AUTOMATED) 2023-02-23 08:17:00 TeresakBlessing [facility] POCT GLUCOSE (AUTOMATED) 2023-02-23 08:17:00 Blessing Long [facility] MAGNESIUM 2023-02-23 08:03:00 Alisa [facility] PHOSPHORUS 2023-02-23 08:03:00 Alisa [facility] CBC WITHOUT DIFF 2023-02-23 08:03:00 Sixto Oliveira [facility] BASIC METABOLIC PANEL (NA, K, CL, CO2, GLUCOSE, BUN, CREATININE, CA) 2023-02-23 08:03:00 Carli [facility] HEPATIC FUNCTION PANEL ([id number]) (ALB,T.PRO,BILI T,BU/BC,ALT,AST,ALK PHOS) 2023-02-23 08:03:00 Hasmukh [facility] PHOSPHORUS 2023-02-23 08:03:00 Alisa [facility] MAGNESIUM 2023-02-23 08:03:00 Alisa [facility] HEPATIC FUNCTION PANEL ([id number]) (ALB,T.PRO,BILI T,BU/BC,ALT,AST,ALK PHOS) 2023-02-23 08:03:00 Hasmukh [facility] BASIC METABOLIC PANEL (NA, K, CL, CO2, GLUCOSE, BUN, CREATININE, CA) 2023-02-23 08:03:00 Carli [facility] CBC WITHOUT DIFF 2023-02-23 08:03:00 Sixto Oliveira [facility] PHOSPHORUS 2023-02-23 08:03:00 Alisa [facility] MAGNESIUM 2023-02-23 08:03:00 Shavon Cuellar [facility] HEPATIC FUNCTION PANEL ([id number]) (ALB,T.PRO,BILI T,BU/BC,ALT,AST,ALK PHOS) 2023-02-23 08:03:00 aMrilyn Noe [facility] BASIC METABOLIC PANEL (NA, K, CL, CO2, GLUCOSE, BUN, CREATININE, CA) 2023-02-23 08:03:00 Kae Boyce [facility] CBC WITHOUT DIFF 2023-02-23 08:03:00 Sixto Oliveira [facility] AC PANEL 20 + LACTIC ACID 2023-02-23 06:43:00 Levi [facility] AC PANEL 20 + LACTIC ACID 2023-02-23 06:43:00 Levi [facility] AC PANEL 20 + LACTIC ACID 2023-02-23 06:43:00 Levi [facility] POCT GLUCOSE (AUTOMATED) 2023-02-23 05:02:00 TeresakJasviro tt [facility] POCT GLUCOSE (AUTOMATED) 2023-02-23 05:02:00 Lick, Jasviro tt [facility] POCT GLUCOSE (AUTOMATED) 2023-02-23 05:02:00 TeresakJasviro tt [facility] VANCOMYCIN TROUGH 2023-02-23 03:58:00 Robb [facility] ACTIVATED PARTIAL THRMPLAS LAURI 2023-02-23 03:58:00 [facility] VANCOMY[facility]IN TROUGH 2023-02-23 03:58:00 Rbob [facility] ACTIVATED PARTIAL THRMPLAS LAURI 2023-02-23 03:58:00 Rafita [facility] VANCOMYCIN TROUGH 2023-02-23 03:58:00 Robb [facility] ACTIVATED PARTIAL THRMPLAS LAURI 2023-02-23 03:58:00 Rafita [facility] AC PANEL 20 + LACTIC ACID 2023-02-23 00:36:00 Rosemarie Zamudio [facility] AC PANEL 20 + LACTIC ACID 2023-02-23 00:36:00 Robb, A [facility] AC PANEL 20 + LACTIC ACID 2023-02-23 00:36:00 Rosemarie Zamudio [facility] TRANSFUSE PACKED RBC 2023-02-22 22:15:00 Elena [facility] TRANSFUSE PACKED RBC 2023-02-22 22:15:00 Elena [facility] TRANSFUSE PACKED RBC 2023-02-22 22:15:00 Elena [facility] PREPARE PACKED RBC 2023-02-22 22:08:32 Ludwig [facility] PREPARE PACKED RBC 2023-02-22 22:08:32 Ludwig [facility] PREPARE PACKED RBC 2023-02-22 22:08:32 [facility] ACTIVATED PARTIAL THRMPLAS LAURI 2023-02-22 22:06:00 Rafita [facility] PROTHROMBIN TIME / INR 2023-02-22 22:06:00 Eller [facility] PROTHROMBIN TIME / INR 2023-02-22 22:06:00 [facility] ACTIVATED PARTIAL THRMPLAS LAURI 2023-02-22 22:06:00 Rafita [facility] PROTHROMBIN TIME / INR 2023-02-22 22:06:00 Sherry Eller [facility] ACTIVATED PARTIAL THRMPLAS LAURI 2023-02-22 22:06:00 [facility] 2023-02-22 20:47:00 Mimi Antonio [facility] HB ABO GROUPING 2023-02-22 20:47:00 Elena [facility] PHOSPHORUS 2023-02-22 20:47:00 Paco Mimi [facility] HB ABO GROUPING 2023-02-22 20:47:00 Elena [facility] PHOSPHORUS 2023-02-22 20:47:00 [facility] 2023-02-22 20:47:00 Elena [facility] AC PANEL 20 + LACTIC ACID 2023-02-22 20:46:00 Vu, [facility] AC PANEL 20 + LACTIC ACID 2023-02-22 20:46:00 Vu, [facility] AC PANEL 20 + LACTIC ACID 2023-02-22 20:46:00 Vu, [facility] AC PANEL 20 + LACTIC ACID 2023-02-22 19:01:00 Vu, [facility] AC PANEL 20 + LACTIC ACID 2023-02-22 19:01:00 Vu, [facility] AC PANEL 20 + LACTIC ACID 2023-02-22 19:01:00 Vu, [facility] DUPLEX VENOUS ARM RIGHT - BY VASCULAR LAB 2023-02-22 17:18:03 Vu, [facility] DUPLEX VENOUS ARM RIGHT - BY VASCULAR LAB 2023-02-22 17:18:03 Vu, [facility] DUPLEX VENOUS ARM RIGHT - BY VASCULAR LAB 2023-02-22 17:18:03 Vu, [facility] DUPLEX ARTERIAL ARM RIGHT - BY VASCULAR LAB 2023-02-22 17:17:49 Vu, [facility] DUPLEX ARTERIAL ARM RIGHT - BY VASCULAR LAB 2023-02-22 17:17:49 Vu, [facility] DUPLEX ARTERIAL ARM RIGHT - BY VASCULAR LAB 2023-02-22 17:17:49 Vu, [facility] POCT GLUCOSE (AUTOMATED) 2023-02-22 16:55:00 Blessing Long tt [facility] POCT GLUCOSE (AUTOMATED) 2023-02-22 16:55:00 Blessing Long tt [facility] POCT GLUCOSE (AUTOMATED) 2023-02-22 16:55:00 Blessing Long tt [facility] SPUTUM CULTURE 2023-02-22 16:31:00 Teegarden, Marilyn M U [facility] SPUTUM CULTURE 2023-02-22 16:31:00 Hasmukh [facility] 2023-02-22 16:31:00 Hasmukh Marilyn Garvin [facility] BASIC METABOLIC PANEL (NA, K, CL, CO2, GLUCOSE, BUN, CREATININE, CA) 2023-02-22 15:04:00 Robb [facility] VANCOMYCIN TROUGH 2023-02-22 15:04:00 Ludwig [facility] BASIC METABOLIC PANEL (NA, K, CL, CO2, GLUCOSE, BUN, CREATININE, CA) 2023-02-22 15:04:00 Robb [facility] VANCOMYCIN TROUGH 2023-02-22 15:04:00 Ludwig Parker [facility] BASIC METABOLIC PANEL (NA, K, CL, CO2, GLUCOSE, BUN, CREATININE, CA) 2023-02-22 15:04:00 [facility] 2023-02-22 15:04:00 Ludwig Parker [facility] AC PANEL 20 + LACTIC ACID 2023-02-22 13:07:00 Rosemarie Zamudio [facility] AC PANEL 20 + LACTIC ACID 2023-02-22 13:07:00 Rosemarie Zamudio [facility] AC PANEL 20 + LACTIC ACID 2023-02-22 13:07:00 Rosemarie Zamudio [facility] XR CHEST 1 2023-02-22 12:45:00 Mya Eller Un i[facility] XR CHEST 1 2023-02-22 12:45:00 Mya Eller [facility] XR CHEST 1 2023-02-22 12:45:00 Mya Eller [facility] XR CHEST 1 2023-02-22 11:04:00 Jackie Zamudio [facility] XR CHEST 1 2023-02-22 11:04:00 Jackie Zamudio [facility] XR CHEST 1 2023-02-22 11:04:00 Robb [facility] AC PANEL 20 + LACTIC ACID 2023-02-22 10:28:00 Rosemarie Zamudio [facility] AC PANEL 20 + LACTIC ACID 2023-02-22 10:28:00 Rosemarie Zamudio [facility] AC PANEL 20 + LACTIC ACID 2023-02-22 10:28:00 Rosemarie Zamudio [facility] MAGNESIUM 2023-02-22 08:11:00 Alisa [facility] PHOSPHORUS 2023-02-22 08:11:00 [facility] WITHOUT DIFF 2023-02-22 08:11:00 Sixto Oliveira [facility] HEPATIC FUNCTION PANEL ([id number]) (ALB,T.PRO,BILI T,BU/BC,ALT,AST,ALK PHOS) 2023-02-22 08:11:00 Robb [facility] BASIC METABOLIC PANEL (NA, K, CL, CO2, GLUCOSE, BUN, CREATININE, CA) 2023-02-22 08:11:00 [facility] AC PANEL 20 + LACTIC ACID 2023-02-22 08:11:00 Rosemarie Zamudio [facility] PHOSPHORUS 2023-02-22 08:11:00 Alisa [facility] MAGNESIUM 2023-02-22 08:11:00 Alisa [facility] HEPATIC FUNCTION PANEL ([id number]) (ALB,T.PRO,BILI T,BU/BC,ALT,AST,ALK PHOS) 2023-02-22 08:11:00 Robb [facility] BASIC METABOLIC PANEL (NA, K, CL, CO2, GLUCOSE, BUN, CREATININE, CA) 2023-02-22 08:11:00 [facility] CBC WITHOUT DIFF 2023-02-22 08:11:00 Sixto Oliveira [facility] AC PANEL 20 + LACTIC ACID 2023-02-22 08:11:00 Rosemarie Zamudio [facility] PHOSPHORUS 2023-02-22 08:11:00 [facility]isaShavon [facility] 2023-02-22 08:11:00 Alisa [facility] HEPATIC FUNCTION PANEL ([id number]) (ALB,T.PRO,BILI T,BU/BC,ALT,AST,ALK PHOS) 2023-02-22 08:11:00 [facility] BASIC METABOLIC PANEL (NA, K, CL, CO2, GLUCOSE, BUN, CREATININE, CA) 2023-02-22 08:11:00 Ludwig Parker [facility] CBC WITHOUT DIFF 2023-02-22 08:11:00 Sixto Oliveira [facility] AC PANEL 20 + LACTIC ACID 2023-02-22 08:11:00 Rosemarie Zamudio [facility] XR KUB 2023-02-22 07:38:00 Jackie Zamudio [facility] Areaelmo [facility] XR KUB 2023-02-22 07:38:00 Jackie Zamudio [facility] Areaelmo [facility] XR KUB 2023-02-22 07:38:00 Jackie Zamudio [facility] AC PANEL 20 + LACTIC ACID 2023-02-22 06:24:00 Rosemarie Zamudio [facility] AC PANEL 20 + LACTIC ACID 2023-02-22 06:24:00 Rosemarie Zamudio [facility] AC PANEL 20 + LACTIC ACID 2023-02-22 06:24:00 Rosemarie Zamudio [facility] XR KUB 2023-02-22 05:16:52 Jackie Zamudio [facility] Areaelmo [facility] XR CHEST 1 2023-02-22 05:16:52 Jackie Zamudio [facility] XR CHEST 1 2023-02-22 05:16:52 Jackie Zamudio [facility] XR KUB 2023-02-22 05:16:52 Jackie Zamudio [facility] Areaelmo [facility]ST 1 VW 2023-02-22 05:16:52 Jackie Zamudio [facility] XR KUB 2023-02-22 05:16:52 Jackie Zamudio [facility] AC PANEL 20 + LACTIC ACID 2023-02-22 04:44:00 Cynthia Cuellarluisito [facility] AC PANEL 20 + LACTIC ACID 2023-02-22 04:44:00 Cynthia [facility] AC PANEL 20 + LACTIC ACID 2023-02-22 04:44:00 [facility]ABOLIC PANEL (NA, K, CL, CO2, GLUCOSE, BUN, CREATININE, CA) 2023-02-22 04:41:00 Robb [facility] BASIC METABOLIC PANEL (NA, K, CL, CO2, GLUCOSE, BUN, CREATININE, CA) 2023-02-22 04:41:00 Robb [facility] BASIC METABOLIC PANEL (NA, K, CL, CO2, GLUCOSE, BUN, CREATININE, CA) 2023-02-22 04:41:00 Robb [facility] POCT GLUCOSE (AUTOMATED) 2023-02-22 03:36:00 [facility] POCT GLUCOSE (AUTOMATED) 2023-02-22 03:36:00 [facility] POCT GLUCOSE (AUTOMATED) 2023-02-22 03:36:00 [facility] AC PANEL 20 + LACTIC ACID 2023-02-22 03:02[facility]00 [facility] 2023-02-22 03:02:[address] [facility] AC PANEL 20 + LACTIC ACID 2023-02-22 03:02:[address] [facility] POCT GLUCOSE (AUTOMATED) 2023-02-22 03:01:00 [facility] POCT GLUCOSE (AUTOMATED) 2023-02-22 03:01:00 TeresakJasviro tt [facility] POCT GLUCOSE (AUTOMATED) 2023-02-22 03:01:00 Jasvir Longo tt [facility] AC PANEL 20 + LACTIC ACID 2023-02-22 01:11:00 Rosemarie Zamudio [facility] AC PANEL 20 + LACTIC ACID 2023-02-22 01:11:00 Rosemarie Zamudio [facility] AC PANEL 20 + LACTIC ACID 2023-02-22 01:11:00 Rosemarie Zamudio [facility] AC PANEL 20 + LACTIC ACID 2023-02-21 23:41:00 Rosemarie Zamudio [facility] AC PANEL 20 + LACTIC ACID 2023-02-21 23:41:00 Rosemarie Zamudio [facility] AC PANEL 20 + LACTIC ACID 2023-02-21 23:41:00 Rosemarie Zamudio [facility] XR CHEST 1 VW 2023-02-21 22:35:00 [facility] XR CHEST 1 VW 2023-02-21 22:35:00 [facility] XR CHEST 1 VW 2023-02-21 22:35:00 [facility] AC PANEL 20 + LACTIC ACID 2023-02-21 22:12:00 Levi [facility] BODY FLUID CULTURE(AEROBIC/ANAEROBIC ) 2023-02-21 22:12:00 [facility] BODY FLUID CULTURE(AEROBIC/ANAEROBIC ) 2023-02-21 22:12:00 [facility] AC PANEL 20 + LACTIC ACID 2023-02-21 22:12:00 Levi [facility] BODY FLUID CULTURE(AEROBIC/ANAEROBIC ) 2023-02-21 22:12:00 [facility] AC PANEL 20 + LACTIC ACID 2023-02-21 22:12:00 Levi [facility] POCT GLUCOSE (AUTOMATED) 2023-02-21 20:33:00 Lick, Sco tt [facility] POCT GLUCOSE (AUTOMATED) 2023-02-21 20:33:00 Lick, Sco tt [facility] POCT GLUCOSE (AUTOMATED) 2023-02-21 20:33:00 Lick, Sco tt [facility] TRANSTHORACIC ECHO (TTE) LIMITED W/ DOPPLER, COLOR AND CONTRAST 2023-02-21 19:26:11 [facility] TRANSTHORACIC ECHO (TTE) LIMITED W/ DOPPLER, COLOR AND CONTRAST 2023-02-21 19:26:11 [facility] TRANSTHORACIC ECHO (TTE) LIMITED W/ DOPPLER, COLOR AND CONTRAST 2023-02-21 19:26:11 [facility] POCT GLUCOSE (AUTOMATED) 2023-02-21 17:26:00 Lick, Sco tt [facility] POCT GLUCOSE (AUTOMATED) 2023-02-21 17:26:00 Lick, Sco tt [facility] POCT GLUCOSE (AUTOMATED) 2023-02-21 17:26:00 Lick, Sco tt [facility] POCT GLUCOSE (AUTOMATED) 2023-02-21 17:03:00 Lick, Sco tt [facility] POCT GLUCOSE (AUTOMATED) 2023-02-21 17:03:00 Lick, Sco tt [facility] POCT GLUCOSE (AUTOMATED) 2023-02-21 17:03:00 Lick, Sco tt [facility] CT ABDOMEN PELVIS WO CONTRAST 2023-02-21 15:56:12 Levi, [facility] CT THORAX WO CONTRAST 2023-02-21 15:56:12 [facility] PELVIS WO CONTRAST 2023-02-21 15:56:12 Levi [facility] CT THORAX WO CONTRAST 2023-02-21 15:56:12 Lashay Samayoa [facility] CT ABDOMEN PELVIS WO CONTRAST 2023-02-21 15:56:12 Levi [facility] CT THORAX WO CONTRAST 2023-02-21 15:56:12 Lashay Samayoa [facility] HB ECG ROUTINE & RHYTHM STRIP 2023-02-21 15:03:16 Levi [facility] HB ECG ROUTINE & RHYTHM STRIP 2023-02-21 15:03:16 Vu [facility] HB ECG ROUTINE & RHYTHM STRIP 2023-02-21 15:03:16 Vu, Mimi-Alexandra [facility] SPUTUM CULTURE 2023-02-21 13:24:00 Sixto Oliveira [facility] SPUTUM CULTURE 2023-02-21 13:24:00 Sixto Oliveira [facility] SPUTUM CULTURE 2023-02-21 13:24:00 Sixto Oliveira [facility] POCT GLUCOSE (AUTOMATED) 2023-02-21 12:49:00 Lick, Sco tt [facility] POCT GLUCOSE (AUTOMATED) 2023-02-21 12:49:00 Lick, Sco tt [facility] POCT GLUCOSE (AUTOMATED) 2023-02-21 12:49:00 Lick, Sco tt [facility] POCT GLUCOSE (AUTOMATED) 2023-02-21 12:47:00 Lick, Sco tt [facility] POCT GLUCOSE (AUTOMATED) 2023-02-21 12:47:00 Lick, Sco tt [facility] POCT GLUCOSE (AUTOMATED) 2023-02-21 12:47:00 Lick, Sco tt [facility] URINALYSIS 2023-02-21 11:17:00 Sixto Oliveira [facility] URINALYSIS 2023-02-21 11:17:00 Sixto Oliveira [facility] URINALYSIS 2023-02-21 11:17:00 Sixto Oliveira [facility] XR CHEST 1 VW 2023-02-21 11:00:[address] [facility] XR CHEST 1 VW 2023-02-21 11:00:[address] [facility] XR CHEST 1 VW 2023-02-21 11:00:[address] [facility] MAGNESIUM 2023-02-21 08:43:00 Shavon Cuellar [facility] PHOSPHORUS 2023-02-21 08:43:00 Alisa [facility] BASIC METABOLIC PANEL (NA, K, CL, CO2, GLUCOSE, BUN, CREATININE, CA) 2023-02-21 08:43:00 Sixto Oliveira [facility] CBC WITHOUT DIFF 2023-02-21 08:43:00 Sixto Oliveira [facility] PROCALCITONIN 2023-02-21 08:43:[address] [facility] AC PANEL 20 + LACTIC ACID 2023-02-21 08:43:00 Rosemarie Zamudio [facility] PHOSPHORUS 2023-02-21 08:43:00 Alisa [facility] MAGNESIUM 2023-02-21 08:43:00 Alisa [facility] BASIC METABOLIC PANEL (NA, K, CL, CO2, GLUCOSE, BUN, CREATININE, CA) 2023-02-21 08:43:00 Tee [facility] CBC WITHOUT DIFF 2023-02-21 08:43:00 Sixto Oliveira [facility] PROCALCITONIN 2023-02-21 08:43:[address] [facility] AC PANEL 20 + LACTIC ACID 2023-02-21 08:43:00 Rosemarie Zamudio [facility] PHOSPHORUS 2023-02-21 08:43:00 Alisa [facility] MAGNESIUM 2023-02-21 08:43:00 Alisa [facility] BASIC METABOLIC PANEL (NA, K, CL, CO2, GLUCOSE, BUN, CREATININE, CA) 2023-02-21 08:43:00 Tee [facility] CBC WITHOUT DIFF 2023-02-21 08:43:00 Sixto Oliveira [facility] PROCALCITONIN 2023-02-21 08:43:[address] [facility] AC PANEL 20 + LACTIC ACID 2023-02-21 08:43:00 Rosemarie Zamudio [facility] AC PANEL 20 + LACTIC ACID 2023-02-21 04:56:00 Rosemarie Zamudio [facility] AC PANEL 20 + LACTIC ACID 2023-02-21 04:56:00 Rosemarie Zamudio [facility] AC PANEL 20 + LACTIC ACID 2023-02-21 04:56:00 Rosemarie Zamudio [facility] BLOOD CULTURE SCREEN 2023-02-21 01:05:00 Sixto Oliveira [facility] BLOOD CULTURE SCREEN 2023-02-21 01:05:00 Sixto Oliveira [facility] BLOOD CULTURE SCREEN 2023-02-21 01:05:00 Sixto Oliveira [facility] POCT GLUCOSE (AUTOMATED) 2023-02-21 01:02:00 LicBlessing garcia tt [facility] POCT GLUCOSE (AUTOMATED) 2023-02-21 01:02:00 LickJasviro tt [facility] POCT GLUCOSE (AUTOMATED) 2023-02-21 01:02:00 LickJasviro tt [facility] POCT GLUCOSE (AUTOMATED) 2023-02-20 21:29:00 LickJasviro tt [facility] POCT GLUCOSE (AUTOMATED) 2023-02-20 21:29:00 Lick Sco tt [facility] POCT GLUCOSE (AUTOMATED) 2023-02-20 21:29:00 LickJasviro tt [facility] POCT GLUCOSE (AUTOMATED) 2023-02-20 21:26:00 LickJasviro tt [facility] POCT GLUCOSE (AUTOMATED) 2023-02-20 21:26:00 LickJasviro tt [facility] POCT GLUCOSE (AUTOMATED) 2023-02-20 21:26:00 LickJasviro tt [facility] CLOSTRIDIUM DIFFICILE TOXIN 2023-02-20 20:52:00 Carli [facility] CLOSTRIDIUM DIFFICILE TOXIN 2023-02-20 20:52:00 Carli [facility] CLOSTRIDIUM DIFFICILE TOXIN 2023-02-20 20:52:00 Carli [facility] POCT GLUCOSE (AUTOMATED) 2023-02-20 16:22:00 LickJasviro tt [facility] POCT GLUCOSE (AUTOMATED) 2023-02-20 16:22:00 Lick, Sco tt [facility] POCT GLUCOSE (AUTOMATED) 2023-02-20 16:22:00 Lick, Jasviro tt [facility] POCT GLUCOSE (AUTOMATED) 2023-02-20 12:37:00 Lick, Sco tt [facility] POCT GLUCOSE (AUTOMATED) 2023-02-20 12:37:00 Blessing Long tt [facility] POCT GLUCOSE (AUTOMATED) 2023-02-20 12:37:00 Blessing Long tt [facility] XR CHEST 1 2023-02-20 09:30:00 Tania Biswas [facility] XR CHEST 1 VW 2023-02-20 09:30:00 Tania Biswas [facility] XR CHEST 1 2023-02-20 09:30:00 Tania Biswas [facility] MAGNESIUM 2023-02-20 08:59:00 Shavon Cuellar [facility] PHOSPHORUS 2023-02-20 08:59:00 Alisa [facility] BASIC METABOLIC PANEL (NA, K, CL, CO2, GLUCOSE, BUN, CREATININE, CA) 2023-02-20 08:59:00 Vu, [facility] CBC WITHOUT DIFF 2023-02-20 08:59[facility] 08:59[facility]00 [facility]-20 08:59:00 Alisa [facility] BASIC METABOLIC PANEL (NA, K, CL, CO2, GLUCOSE, BUN, CREATININE, CA) 2023-02-20 08:59:00 Vu, [facility] CBC WITHOUT DIFF 2023-02-20 08:59:00 [facility]20 08:59:00 [facility]-02-20 08:59:00 Alisa [facility] BASIC METABOLIC PANEL (NA, K, CL, CO2, GLUCOSE, BUN, CREATININE, CA) 2023-02-20 08:59:00 Vu, [facility] CBC WITHOUT DIFF 2023-02-20 08:59:00 Vu, [facility] POCT GLUCOSE (AUTOMATED) 2023-02-20 08:58:00 Lick, Jasviro [facility] POCT GLUCOSE (AUTOMATED) 2023-02-20 08:58:00 Lick, Jasviro tt [facility] POCT GLUCOSE (AUTOMATED) 2023-02-20 08:58:00 Lick, Sco tt [facility] POCT GLUCOSE (AUTOMATED) 2023-02-20 06:02:00 Lick, Jasviro tt [facility] POCT GLUCOSE (AUTOMATED) 2023-02-20 06:02:00 Lick, Sco tt [facility] POCT GLUCOSE (AUTOMATED) 2023-02-20 06:02:00 Lick, Jasviro [facility] BASIC METABOLIC PANEL (NA, K, CL, CO2, GLUCOSE, BUN, CREATININE, CA) 2023-02-20 01:23:00 [facility] MAGNESIUM 2023-02-20 01:23:00 Vu, [facility] MAGNESIUM 2023-02-20 [facility] (NA, K, CL, CO2, GLUCOSE, BUN, CREATININE, CA) 2023-02-20 01:23:00 [facility] MAGNESIUM 2023-02-20 01:23:00 [facility] (NA, K, CL, CO2, GLUCOSE, BUN, CREATININE, CA) 2023-02-20 01:23:00 Levi [facility] POCT GLUCOSE (AUTOMATED) 2023-02-20 01:22:00 LickJasviro [facility] POCT GLUCOSE (AUTOMATED) 2023-02-20 01:22:00 LickJasviro [facility] POCT GLUCOSE (AUTOMATED) 2023-02-20 01:22:00 Lick, Jasviro [facility] POCT GLUCOSE (AUTOMATED) 2023-02-19 22:45:00 Lick, Jasviro tt [facility] POCT GLUCOSE (AUTOMATED) 2023-02-19 22:45:00 Lick, Sco [facility] POCT GLUCOSE (AUTOMATED) 2023-02-19 22:45:00 Lick, Sco [facility] TRANSTHORACIC ECHO (TTE) COMPLETE W/ CONTRAST 2023-02-19 20:24:50 [facility] TRANSTHORACIC ECHO (TTE) COMPLETE W/ CONTRAST 2023-02-19 20:24:50 [facility] TRANSTHORACIC ECHO (TTE) COMPLETE W/ CONTRAST 2023-02-19 20:24:50 [facility] AC PANEL 21 + LACTIC ACID 2023-02-19 19:34:00 Rosemarie Zamudio [facility] AC PANEL 21 + LACTIC ACID 2023-02-19 19:34:00 Rosemarie Zamudio [facility] AC PANEL 21 + LACTIC ACID 2023-02-19 19:34:00 Rosemarie Zamudio [facility] BASIC METABOLIC PANEL (NA, K, CL, CO2, GLUCOSE, BUN, CREATININE, CA) 2023-02-19 17:35:00 [facility] + LACTIC ACID 2023-02-19 17:35:00 Rosemarie Zamudio [facility] MAGNESIUM 2023-02-19 17:35:00 [facility] MAGNESIUM 2023-02-19 17:35:00 Elena [facility] BASIC METABOLIC PANEL (NA, K, CL, CO2, GLUCOSE, BUN, CREATININE, CA) 2023-02-19 17:35:00 [facility]EL [facility] + LACTIC ACID 2023-02-19 17:35:00 Rosemarie Zamudio [facility] MAGNESIUM 2023-02-19 17:35:00 Elena [facility] BASIC METABOLIC PANEL (NA, K, CL, CO2, GLUCOSE, BUN, CREATININE, CA) 2023-02-19 17:35:00 [facility]EL [facility] + LACTIC ACID 2023-02-19 17:35:00 Rosemarie Zamudio [facility] XR CHEST 1 VW 2023-02-19 16:58:00 Ludwig Parker [facility] XR CHEST 1 VW 2023-02-19 16:58:00 [facility] 2023-02-19 16:58:00 [facility] PO[facility]SE (AUTOMATED) 2023-02-19 16:32:00 Lick, Jasviro tt [facility] POCT GLUCOSE (AUTOMATED) 2023-02-19 16:32:00 Lick, Sco tt [facility] POCT GLUCOSE (AUTOMATED) 2023-02-19 16:32:00 Lick, Sco tt [facility] POCT GLUCOSE (AUTOMATED) 2023-02-19 12:30:00 Lick, Sco tt [facility] POCT GLUCOSE (AUTOMATED) 2023-02-19 12:30:00 Lick, Sco tt [facility] POCT GLUCOSE (AUTOMATED) 2023-02-19 12:30:00 Lick, Sco tt [facility] POCT GLUCOSE (AUTOMATED) 2023-02-19 11:07:00 Lick, Sco tt [facility] POCT GLUCOSE (AUTOMATED) 2023-02-19 11:07:00 Lick, Sco tt [facility] POCT GLUCOSE (AUTOMATED) 2023-02-19 11:07:00 Lick, Sco tt [facility] POCT GLUCOSE (AUTOMATED) 2023-02-19 10:47:00 Lick, Sco tt [facility] POCT GLUCOSE (AUTOMATED) 2023-02-19 10:47:00 Lick, Sco tt [facility] POCT GLUCOSE (AUTOMATED) 2023-02-19 10:47:00 Lick, Sco tt [facility] XR CHEST 1 VW 2023-02-19 09:49:00 Tania Biswas [facility] XR CHEST 1 VW 2023-02-19 09:49:00 Tania Biswas [facility] XR CHEST 1 VW 2023-02-19 09:49:00 Tania Biswas [facility] TROPONIN I 2023-02-19 08:15:00 [facility]19 08:15:00 [facility] 2023-02-19 08:15:00 Jackie Zamudio [facility] BASIC METABOLIC PANEL (NA, K, CL, CO2, GLUCOSE, BUN, CREATININE, CA) 2023-02-19 08:15:00 [facility] 2023-02-19 08:15:00 [facility]23-02-19 08:15:00 [facility] 2023-02-19 08:15:00 Jackie Zamudio [facility] TROPONIN I 2023-02-19 08:15:00 Jackie Zamudio [facility] BASIC METABOLIC PANEL (NA, K, CL, CO2, GLUCOSE, BUN, CREATININE, CA) 2023-02-19 08:15:00 Jackie Zamudio [facility] CBC WITH DIFF 2023-02-19 08:15:00 [facility] 2023-02-19 08:15:00 Jackie Zamudio [facility] MAGNESIUM 2023-02-19 08:15:00 [facility] 2023-02-19 08:15:00 Jackie Zamudio [facility] BASIC METABOLIC PANEL (NA, K, CL, CO2, GLUCOSE, BUN, CREATININE, CA) 2023-02-19 08:15:00 Jackie Zamudio [facility] CBC WITH DIFF 2023-02-19 08:15:00 [facility] PO[facility]SE (AUTOMATED) 2023-02-19 05:57:00 Lick, Sco tt [facility] POCT GLUCOSE (AUTOMATED) 2023-02-19 05:57:00 Lick, Sco tt [facility] POCT GLUCOSE (AUTOMATED) 2023-02-19 05:57:00 Lick, Sco tt [facility] POCT GLUCOSE (AUTOMATED) 2023-02-19 05:52:00 Lick, Jasviro tt [facility] POCT GLUCOSE (AUTOMATED) 2023-02-19 05:52:00 Lick, Jasviro tt [facility] POCT GLUCOSE (AUTOMATED) 2023-02-19 05:52:00 Lick, Jasviro tt [facility] ACUTE CARE VENOUS BLOOD GAS 2023-02-19 01:33:00 [facility] 2023-02-19 01:33:00 Jackie Zamudio [facility] BASIC METABOLIC PANEL (NA, K, CL, CO2, GLUCOSE, BUN, CREATININE, CA) 2023-02-19 01:33:00 [facility]SE (AUTOMATED) 2023-02-19 01:33:00 TeresakBlessing tt [facility] MAGNESIUM 2023-02-19 01:33:00 Jackie Zamudio [facility] MAGNESIUM 2023-02-19 01:33:00 Jackie Zamudio [facility] TROPONIN I 2023-02-19 01:33:00 Jackie Zamudio [facility] BASIC METABOLIC PANEL (NA, K, CL, CO2, GLUCOSE, BUN, CREATININE, CA) 2023-02-19 01:33:00 Jackie Zamudio [facility] ACUTE CARE VENOUS BLOOD GAS 2023-02-19 01:33:00 Jackie Zamudio [facility] POCT GLUCOSE (AUTOMATED) 2023-02-19 01:33:00 LickJasviro [facility] MAGNESIUM 2023-02-19 01:33:00 Jackie Zamudio [facility] TROPONIN I 2023-02-19 01:33:00 Jackie Zamudio [facility] BASIC METABOLIC PANEL (NA, K, CL, CO2, GLUCOSE, BUN, CREATININE, CA) 2023-02-19 01:33:[address] [facility] VENOUS BLOOD GAS 2023-02-19 01:33:00 [facility] (AUTOMATED) 2023-02-19 01:33:00 Lick Jasviro tt [facility] EKG-12 LEAD 2023-02-19 01:25:12 Licpastora [facility] EKG-12 LEAD 2023-02-19 01:25:12 Lick [facility] EKG-12 LEAD 2023-02-19 01:25:12 Lick, [facility] POCT GLUCOSE (AUTOMATED) 2023-02-18 20:46:00 Lick, Sco tt [facility] POCT GLUCOSE (AUTOMATED) 2023-02-18 20:46:00 Lick, Sco tt [facility] POCT GLUCOSE (AUTOMATED) 2023-02-18 20:46:00 Lick, Jasviro [facility] BASIC METABOLIC PANEL (NA, K, CL, CO2, GLUCOSE, BUN, CREATININE, CA) 2023-02-18 18:32:00 Jackie Zamudio [facility] BASIC METABOLIC PANEL (NA, K, CL, CO2, GLUCOSE, BUN, CREATININE, CA) 2023-02-18 18:32:00 Jackie Zamudio [facility] BASIC METABOLIC PANEL (NA, K, CL, CO2, GLUCOSE, BUN, CREATININE, CA) 2023-02-18 18:32:00 Jackie Zamudio [facility] POCT GLUCOSE (AUTOMATED) 2023-02-18 18:31:00 LickJasviro alfred [facility] POCT GLUCOSE (AUTOMATED) 2023-02-18 18:31:00 Lick, Sco tt [facility] POCT GLUCOSE (AUTOMATED) 2023-02-18 18:31:00 Lick, Sco tt [facility] POCT GLUCOSE (AUTOMATED) 2023-02-18 13:17:00 Lick, Jasviro tt [facility] POCT GLUCOSE (AUTOMATED) 2023-02-18 13:17:00 Lick, Sco tt [facility] POCT GLUCOSE (AUTOMATED) 2023-02-18 13:17:00 Lick, Jasviro tt [facility] PHOSPHORUS 2023-02-18 09:10:00 Jackie Zamudio [facility] MAGNESIUM 2023-02-18 09:10:00 Jackie Zamudio [facility] CBC WITH DIFF 2023-02-18 09:10:00 Jackie Zamudio [facility] BASIC METABOLIC PANEL (NA, K, CL, CO2, GLUCOSE, BUN, CREATININE, CA) 2023-02-18 09:10:[address] [facility]EL [facility] + LACTIC ACID 2023-02-18 09:10:00 [facility]23-02-18 09:10:00 Jackie Zamudio [facility] MAGNESIUM 2023-02-18 09:10:00 Jackie Zamudio [facility] BASIC METABOLIC PANEL (NA, K, CL, CO2, GLUCOSE, BUN, CREATININE, CA) 2023-02-18 09:10:00 [facility]FF 2023-02-18 09:10:00 Jackie Zamudio [facility] AC PANEL 21 + LACTIC ACID 2023-02-18 09:10:00 Rosemarie Zamudio [facility] PHOSPHORUS 2023-02-18 09:10:00 Jackie Zamudio [facility] MAGNESIUM 2023-02-18 09:10:00 Jackie Zamudio [facility] BASIC METABOLIC PANEL (NA, K, CL, CO2, GLUCOSE, BUN, CREATININE, CA) 2023-02-18 09:10:00 [facility]FF 2023-02-18 09:10:00 Jackie Zamudio [facility] AC PANEL 21 + LACTIC ACID 2023-02-18 09:10:00 Rosemarie Zamudio [facility] POCT GLUCOSE (AUTOMATED) 2023-02-18 09:08:00 TeresakBlessing tt [facility] POCT GLUCOSE (AUTOMATED) 2023-02-18 09:08:00 LickJasviro tt [facility] POCT GLUCOSE (AUTOMATED) 2023-02-18 09:08:00 LickBlessing tt [facility] XR CHEST 1 VW 2023-02-18 08:50:00 Tania Biswas [facility] XR CHEST 1 VW 2023-02-18 08:50:00 Tania Biswas [facility] XR CHEST 1 VW 2023-02-18 08:50:00 Tania Biswas [facility] POCT GLUCOSE (AUTOMATED) 2023-02-18 05:22:00 Lick, Sco tt [facility] POCT GLUCOSE (AUTOMATED) 2023-02-18 05:22:00 Lick, Sco tt [facility] POCT GLUCOSE (AUTOMATED) 2023-02-18 05:22:00 Lick, Sco tt [facility] POCT GLUCOSE (AUTOMATED) 2023-02-18 03:12:00 Lick, Sco tt [facility] POCT GLUCOSE (AUTOMATED) 2023-02-18 03:12:00 Lick, Sco tt [facility] POCT GLUCOSE (AUTOMATED) 2023-02-18 03:12:00 Lick, Sco tt [facility] POCT GLUCOSE (AUTOMATED) 2023-02-18 01:53:00 Lick, Sco tt [facility] POCT GLUCOSE (AUTOMATED) 2023-02-18 01:53:00 Lick, Sco tt [facility] POCT GLUCOSE (AUTOMATED) 2023-02-18 01:53:00 Lick, Sco tt [facility] POCT GLUCOSE (AUTOMATED) 2023-02-18 01:46:00 Lick, Sco tt [facility] POCT GLUCOSE (AUTOMATED) 2023-02-18 01:46:00 Lick, Sco tt [facility] POCT GLUCOSE (AUTOMATED) 2023-02-18 01:46:00 Lick, Sco tt [facility] POCT GLUCOSE (AUTOMATED) 2023-02-18 01:23:00 Lick, Sco tt [facility] POCT GLUCOSE (AUTOMATED) 2023-02-18 01:23:00 Lick, Sco tt [facility] POCT GLUCOSE (AUTOMATED) 2023-02-18 01:23:00 Lick, Sco tt [facility] POCT GLUCOSE (AUTOMATED) 2023-02-18 00:48:00 Berhane Jasvirbertha simon [facility] POCT GLUCOSE (AUTOMATED) 2023-02-18 00:48:00 Blessing Long [facility] POCT GLUCOSE (AUTOMATED) 2023-02-18 00:48:00 Blessing Long [facility] POCT GLUCOSE (AUTOMATED) 2023-02-17 22:16:00 Blessing Long [facility] POCT GLUCOSE (AUTOMATED) 2023-02-17 22:16:00 Blessing Long [facility] POCT GLUCOSE (AUTOMATED) 2023-02-17 22:16:00 Teresapastora Blessing [facility] AC PANEL 20 + LACTIC ACID 2023-02-17 17:49:[address] [facility] AC PANEL 20 + LACTIC ACID 2023-02-17 17:49:[address] [facility] AC PANEL 20 + LACTIC ACID 2023-02-17 17:49:[address] [facility] ABG+COOX+NA+K+GLU+CA2+ 2023-02-17 16:48:00 Burke Long [facility] ABG+COOX+NA+K+GLU+CA2+ 2023-02-17 16:48:00 Berhane [facility] ABG+COOX+NA+K+GLU+CA2+ 2023-02-17 16:48:00 Burke Long [facility] POCT GLUCOSE (AUTOMATED) 2023-02-17 12:49:00 Blessing Long [facility] POCT GLUCOSE (AUTOMATED) 2023-02-17 12:49:00 TeresakBlessing [facility] POCT GLUCOSE (AUTOMATED) 2023-02-17 12:49:00 Berhane Blessing [facility] PHOSPHORUS 2023-02-17 09:15:00 Jackie Zamudio [facility] MAGNESIUM 2023-02-17 09:15:00 Jackie Zamudio [facility] [facility] CBC WITH DIFF 2023-02-17 09:15:00 Jackie Zamudio [facility] BASIC METABOLIC PANEL (NA, K, CL, CO2, GLUCOSE, BUN, CREATININE, CA) 2023-02-17 09:15:00 Jackie Zamudio [facility] POCT GLUCOSE (AUTOMATED) 2023-02-17 09:15:00 Blessing Long [facility] PHOSPHORUS 2023-02-17 09:15:00 Jackie Zamudio [facility] MAGNESIUM 2023-02-17 09:15:00 Jackie Zamudio [facility] BASIC METABOLIC PANEL (NA, K, CL, CO2, GLUCOSE, BUN, CREATININE, CA) 2023-02-17 09:15:[facility] 2023-02-17 09:15[facility]00 [facility] 2023-02-17 09:15:00 Blessing Long tt [facility] PHOSPHORUS 2023-02-17 09:15:00 Jackie Zamudio [facility] MAGNESIUM 2023-02-17 09:15:00 Jackie Zamudio [facility] BASIC METABOLIC PANEL (NA, K, CL, CO2, GLUCOSE, BUN, CREATININE, CA) 2023-02-17 09:15:00 Jackie Zamudio [facility] CBC WITH DIFF 2023-02-17 09:15:00 Jackie Zamudio [facility] POCT GLUCOSE (AUTOMATED) 2023-02-17 09:15:00 Blessing Long tt [facility] XR CHEST 1 VW 2023-02-17 08:35:00 Jackie Zamudio [facility] XR CHEST 1 VW 2023-02-17 08:35:00 Jackie Zamudio [facility] XR CHEST 1 VW 2023-02-17 08:35:00 Jackie Zamudio [facility] POCT GLUCOSE (AUTOMATED) 2023-02-17 04:50:00 Blessing Long [facility] POCT GLUCOSE (AUTOMATED) 2023-02-17 04:50:00 Lick, Sco tt [facility] POCT GLUCOSE (AUTOMATED) 2023-02-17 04:50:00 Lick, Sco tt [facility] POCT GLUCOSE (AUTOMATED) 2023-02-17 00:48:00 Lick, Sco tt [facility] POCT GLUCOSE (AUTOMATED) 2023-02-17 00:48:00 Lick, Sco tt [facility] POCT GLUCOSE (AUTOMATED) 2023-02-17 00:48:00 Lick, Sco tt [facility] POCT GLUCOSE (AUTOMATED) 2023-02-16 23:43:00 Lick, Sco tt [facility] POCT GLUCOSE (AUTOMATED) 2023-02-16 23:43:00 Lick, Sco tt [facility] POCT GLUCOSE (AUTOMATED) 2023-02-16 23:43:00 Lick, Sco tt [facility] POCT GLUCOSE (AUTOMATED) 2023-02-16 16:48:00 Lick, Sco tt [facility] POCT GLUCOSE (AUTOMATED) 2023-02-16 16:48:00 Lick, Sco tt [facility] POCT GLUCOSE (AUTOMATED) 2023-02-16 16:48:00 Lick, Sco tt [facility] AC PANEL 20 + LACTIC ACID 2023-02-16 13:58:00 Rosemarie Zamudio [facility] AC PANEL 20 + LACTIC ACID 2023-02-16 13:58:00 Rosemarie Zamudio [facility] AC PANEL 20 + LACTIC ACID 2023-02-16 13:58:00 Rosemarie Zamudio [facility] TRANSFUSE PACKED RBC 2023-02-16 13:45:00 Levi [facility] TRANSFUSE PACKED RBC 2023-02-16 13:45:00 Levi [facility] TRANSFUSE PACKED RBC 2023-02-16 13:45:00 Levi [facility] PREPARE PACKED RBC 2023-02-16 13:29[facility] 2023-02-16 13:29:02 [facility] 2023-02-16 13:29:02 Ghazal Sims Un [facility] POCT GLUCOSE (AUTOMATED) 2023-02-16 12:32:00 Lick, Sco tt [facility] POCT GLUCOSE (AUTOMATED) 2023-02-16 12:32:00 Lick, Sco tt [facility] POCT GLUCOSE (AUTOMATED) 2023-02-16 12:32:00 Lick, Sco tt [facility] POCT GLUCOSE (AUTOMATED) 2023-02-16 09:48:00 Lick, Sco tt [facility] POCT GLUCOSE (AUTOMATED) 2023-02-16 09:48:00 Lick, Sco tt [facility] POCT GLUCOSE (AUTOMATED) 2023-02-16 09:48:00 Lick, Sco tt [facility] AC PANEL 20 + LACTIC ACID 2023-02-16 09:44:[address] [facility] AC PANEL 20 + LACTIC ACID 2023-02-16 09:44:[address] [facility] AC PANEL 20 + LACTIC ACID 2023-02-16 09:44:[address] [facility] PHOSPHORUS 2023-02-16 09:40:00 Jackie Zamudio [facility] MAGNESIUM 2023-02-16 09:40:00 Jackie Zamudio [facility] CBC WITH DIFF 2023-02-16 09:40:00 Jackie Zamudio [facility] BASIC METABOLIC PANEL (NA, K, CL, CO2, GLUCOSE, BUN, CREATININE, CA) 2023-02-16 09:40:00 Jackie Zamudio [facility] PHOSPHORUS 2023-02-16 09:40:00 Jackie Zamudio [facility] MAGNESIUM 2023-02-16 09:40:00 Jackie Zamudio [facility] BASIC METABOLIC PANEL (NA, K, CL, CO2, GLUCOSE, BUN, CREATININE, CA) 2023-02-16 09:40:00 [facility] CBC WITH DIFF 2023-02-16 09:40:00 Jackie Zamudio [facility] PHOSPHORUS 2023-02-16 09:40:00 Jackie Zamudio [facility] MAGNESIUM 2023-02-16 09:40:00 Jackie Zamudio [facility] BASIC METABOLIC PANEL (NA, K, CL, CO2, GLUCOSE, BUN, CREATININE, CA) 2023-02-16 09:40:00 Robb [facility] CBC WITH DIFF 2023-02-16 09:40:00 Robb [facility] XR CHEST 1 VW 2023-02-16 09:00:00 Robb [facility] XR CHEST 1 VW 2023-02-16 09:00:00 Robb [facility] XR CHEST 1 VW 2023-02-16 09:00:00 [facility] + LACTIC ACID 2023-02-16 04:48[facility]00 [facility] 2023-02-16 04:48:00 Blessing Long [facility] POCT GLUCOSE (AUTOMATED) 2023-02-16 04:48:00 Blessing Long [facility] AC PANEL 20 + LACTIC ACID 2023-02-16 04:48:00 [facility]OMATED) 2023-02-16 04:48:00 Blessing Long [facility] AC PANEL 20 + LACTIC ACID 2023-02-16 04:48:00 [facility]OMATED) 2023-02-16 01:17:00 Blessing Long [facility] POCT GLUCOSE (AUTOMATED) 2023-02-16 01:17:00 Blessing Long [facility] POCT GLUCOSE (AUTOMATED) 2023-02-16 01:17:00 TeresakBlessing [facility] AC PANEL 20 + LACTIC ACID 2023-02-15 22:28:00 Rosemarie Zamudio [facility] AC PANEL 20 + LACTIC ACID 2023-02-15 22:28:00 Rosemarie Zamudio [facility] AC PANEL 20 + LACTIC ACID 2023-02-15 22:28:00 Rosemarie Zamudio [facility] POCT GLUCOSE (AUTOMATED) 2023-02-15 20:28:00 Lick, Jasviro tt [facility] POCT GLUCOSE (AUTOMATED) 2023-02-15 20:28:00 Lick, Sco tt [facility] POCT GLUCOSE (AUTOMATED) 2023-02-15 20:28:00 Lick, Jasviro tt [facility] AC PANEL 20 + LACTIC ACID 2023-02-15 19:32:[address] [facility] AC PANEL 20 + LACTIC ACID 2023-02-15 19:32:[address] [facility] AC PANEL 20 + LACTIC ACID 2023-02-15 19:32:[address] [facility] HIT - AB 2023-02-15 17:35:00 Bran Arthur [facility] EXTRA SST HOLD FOR [facility] 2023-02-15 17:35:00 OrBran Whitehead [facility] HIT - AB 2023-02-15 17:35:00 Bran Arthur [facility] EXTRA SST HOLD FOR [facility] 2023-02-15 17:35:00 Orti Bran Ortega [facility] HIT - AB 2023-02-15 17:35:00 LaytonBran Vee [facility] EXTRA SST HOLD FOR [facility] 2023-02-15 17:35:00 OrBran Whitehead [facility] POCT GLUCOSE (AUTOMATED) 2023-02-15 17:29:00 Lick, Jasviro tt [facility] POCT GLUCOSE (AUTOMATED) 2023-02-15 17:29:00 Lick, Jasviro tt [facility] POCT GLUCOSE (AUTOMATED) 2023-02-15 17:29:00 Lick, Sco tt [facility] AC PANEL 20 + LACTIC ACID 2023-02-15 17:28:[address] [facility] AC PANEL 20 + LACTIC ACID 2023-02-15 17:28:[address] [facility] AC PANEL 20 + LACTIC ACID 2023-02-15 17:28:[address] [facility] AC PANEL 20 + LACTIC ACID 2023-02-15 15:46:[address] [facility] AC PANEL 20 + LACTIC ACID 2023-02-15 15:46:[address] [facility] AC PANEL 20 + LACTIC ACID 2023-02-15 15:46:[address] [facility] POCT GLUCOSE (AUTOMATED) 2023-02-15 15:45:00 Lick, Jasviro tt [facility] POCT GLUCOSE (AUTOMATED) 2023-02-15 15:45:00 Lick, Sco tt [facility] POCT GLUCOSE (AUTOMATED) 2023-02-15 15:45:00 Lick, Sco tt [facility] POCT GLUCOSE (AUTOMATED) 2023-02-15 13:19:00 Lick, Sco tt [facility] POCT GLUCOSE (AUTOMATED) 2023-02-15 13:19:00 Lick, Sco tt [facility] POCT GLUCOSE (AUTOMATED) 2023-02-15 13:19:00 Lick, Sco tt [facility] AC PANEL 20 + LACTIC ACID 2023-02-15 13:18:00 Rosemarie Zamudio [facility] AC PANEL 20 + LACTIC ACID 2023-02-15 13:18:00 Rosemarie Zamudio [facility] AC PANEL 20 + LACTIC ACID 2023-02-15 13:18:00 Rosemarie Zamudio [facility] POCT GLUCOSE (AUTOMATED) 2023-02-15 11:03:00 Lick, [facility] POCT GLUCOSE (AUTOMATED) 2023-02-15 11:03:00 Lick, [facility] POCT GLUCOSE (AUTOMATED) 2023-02-15 11:03:00 Lick, [facility] POCT GLUCOSE (AUTOMATED) 2023-02-15 09:58:00 Lick, [facility] POCT GLUCOSE (AUTOMATED) 2023-02-15 09:58:00 Lick, [facility] POCT GLUCOSE (AUTOMATED) 2023-02-15 09:58:00 Lick, [facility] AC PANEL 20 + LACTIC ACID 2023-02-15 09:05:00 Cynthia Cuellar [facility] PROTHROMBIN TIME / INR 2023-02-15 09:05:00 Diane Zamudio [facility] BASIC METABOLIC PANEL (NA, K, CL, CO2, GLUCOSE, BUN, CREATININE, CA) 2023-02-15 09:05:00 Shevlin, [facility] CBC WITH DIFF 2023-02-15 09:05:00 Shevlin, [facility] PHOSPHORUS 2023-02-15 09:05:00 Shevlin, Ludwig [facility] MAGNESIUM 2023-02-15 09:05:00 [facility]-02-15 09:05:00 Shevlin, Ludwig [facility] MAGNESIUM 2023-02-15 09:05:00 Shevlin, Ludwig [facility] BASIC METABOLIC PANEL (NA, K, CL, CO2, GLUCOSE, BUN, CREATININE, CA) 2023-02-15 09:05:00 [facility], [facility] CBC WITH DIFF 2023-02-15 [facility]-02-15 09:05:00 Diane Zamudio [facility] AC PANEL 20 + LACTIC ACID 2023-02-15 09:05:00 Cynthia Cuellar [facility] PHOSPHORUS 2023-02-15 09:05:[address] [facility] MAGNESIUM 2023-02-15 09:05:00 Shevlin [facility] BASIC METABOLIC PANEL (NA, K, CL, CO2, GLUCOSE, BUN, CREATININE, CA) 2023-02-15 09:05:00 [facility] CBC WITH DIFF 2023-02-15 09:05:00 [facility] PROTHROMBIN TIME / INR 2023-02-15 09:05:00 Diane Zamudio [facility] AC PANEL 20 + LACTIC ACID 2023-02-15 09:05:00 Cynthia Cuellar [facility] POCT GLUCOSE (AUTOMATED) 2023-02-15 09:02:00 Blessing Long [facility] POCT GLUCOSE (AUTOMATED) 2023-02-15 09:02:00 Blessing Long [facility] POCT GLUCOSE (AUTOMATED) 2023-02-15 09:02:00 Blessing Long [facility] XR CHEST 1 VW 2023-02-15 09:00:00 Robb [facility] XR CHEST 1 VW 2023-02-15 09:00:00 Robb [facility] XR CHEST 1 VW 2023-02-15 09:00:00 Robb [facility] POCT GLUCOSE (AUTOMATED) 2023-02-15 08:08:00 TeresakBlessing [facility] POCT GLUCOSE (AUTOMATED) 2023-02-15 08:08:00 LickJasviro tt [facility] POCT GLUCOSE (AUTOMATED) 2023-02-15 08:08:00 LickJasviro tt [facility] POCT GLUCOSE (AUTOMATED) 2023-02-15 07:00:00 LickJasviro tt [facility] POCT GLUCOSE (AUTOMATED) 2023-02-15 07:00:00 LickJasviro tt [facility] POCT GLUCOSE (AUTOMATED) 2023-02-15 07:00:00 LickJasviro [facility] POCT GLUCOSE (AUTOMATED) 2023-02-15 06:09:00 Berhane Blessing [facility] POCT GLUCOSE (AUTOMATED) 2023-02-15 06:09:00 TeresakBlessing [facility] POCT GLUCOSE (AUTOMATED) 2023-02-15 06:09:00 Berhane Blessing [facility] AC PANEL 20 + LACTIC ACID 2023-02-15 05:06:00 [facility] 2023-02-15 05:06:00 Berhane Blessing [facility] POCT GLUCOSE (AUTOMATED) 2023-02-15 05:06:00 Blessing Long [facility] AC PANEL 20 + LACTIC ACID 2023-02-15 05:06:00 [facility]ATED) 2023-02-15 05:06:00 Blessing Long [facility] AC PANEL 20 + LACTIC ACID 2023-02-15 05:06:00 [facility]OMATED) 2023-02-15 04:00:00 Blessing Long [facility] POCT GLUCOSE (AUTOMATED) 2023-02-15 04:00:00 Blessing Long [facility] POCT GLUCOSE (AUTOMATED) 2023-02-15 04:00:00 Blessing Long [facility] POCT GLUCOSE (AUTOMATED) 2023-02-15 03:10:00 TeresakBlessing [facility] POCT GLUCOSE (AUTOMATED) 2023-02-15 03:10:00 LickBlessing [facility] POCT GLUCOSE (AUTOMATED) 2023-02-15 03:10:00 TeresakBlessing [facility] POCT GLUCOSE (AUTOMATED) 2023-02-15 02:10:00 TeresakJasviro [facility] POCT GLUCOSE (AUTOMATED) 2023-02-15 02:10:00 TeresakBlessing [facility] POCT GLUCOSE (AUTOMATED) 2023-02-15 02:10:00 TeresakBlessing tt [facility] CBC WITHOUT DIFF 2023-02-15 01:17:00 ElenaLudwig cochran [facility] AC PANEL 20 + LACTIC ACID 2023-02-15 01:17:00 RobbRosemarie [facility] CBC WITHOUT DIFF 2023-02-15 01:17:00 ShevlinLudwig [facility] AC PANEL 20 + LACTIC ACID 2023-02-15 01:17:00 RobbRosemarie [facility] CBC WITHOUT DIFF 2023-02-15 01:17:00 ElenaLudwig [facility] AC PANEL 20 + LACTIC ACID 2023-02-15 01:17:00 Robb Rosemarie [facility] POCT GLUCOSE (AUTOMATED) 2023-02-15 01:16:00 Blessing Long [facility] POCT GLUCOSE (AUTOMATED) 2023-02-15 01:16:00 TeresakBlessing [facility] POCT GLUCOSE (AUTOMATED) 2023-02-15 01:16:00 TeresakJasviro [facility] POCT GLUCOSE (AUTOMATED) 2023-02-14 23:46:00 Teresak Pro [facility] POCT GLUCOSE (AUTOMATED) 2023-02-14 23:46:00 Teresak Sco [facility] POCT GLUCOSE (AUTOMATED) 2023-02-14 23:46:00 TeresakJasviro [facility] POCT GLUCOSE (AUTOMATED) 2023-02-14 22:57:00 LickJasviro [facility] POCT GLUCOSE (AUTOMATED) 2023-02-14 22:57:00 Lick, Jasviro tt [facility] POCT GLUCOSE (AUTOMATED) 2023-02-14 22:57:00 TeresakJasviro [facility] AC PANEL 20 + LACTIC ACID 2023-02-14 21:56:00 Cynthia Cuellar [facility] AC PANEL 20 + LACTIC ACID 2023-02-14 21:56:00 Cynthia Cuellar [facility] AC PANEL 20 + LACTIC ACID 2023-02-14 21:56:00 Cynthia Cuellar [facility] ABG+COOX+NA+K+GLU+CA2+ 2023-02-14 20:15:00 Azucenaqu ezAlthearosemarie Mauro [facility] ABG+COOX+NA+K+GLU+CA2+ 2023-02-14 20:15:00 Vasqu ezAltheaa Zunilda [facility] ABG+COOX+NA+K+GLU+CA2+ 2023-02-14 20:15:00 Vasqu ez, Jennifer Choudhuryhleen [facility] ABG+COOX+NA+K+GLU+CA2+ 2023-02-14 20:15:00 Vasqu ez, Jennifer Mauro [facility] CBC WITHOUT DIFF 2023-02-14 18:11:00 Smetana Ale U [facility] CBC WITHOUT DIFF 2023-02-14 18:11:00 Smetana, Ale U [facility] CBC WITHOUT DIFF 2023-02-14 18:11:00 Smetana, Ale U [facility] CBC WITHOUT DIFF 2023-02-14 18:11:00 Smetana, Ale U [facility] POCT GLUCOSE (AUTOMATED) 2023-02-14 18:10:00 Blessing Long [facility] POCT GLUCOSE (AUTOMATED) 2023-02-14 18:10:00 Blessing Long tt [facility] POCT GLUCOSE (AUTOMATED) 2023-02-14 18:10:00 Blessing Long [facility] POCT GLUCOSE (AUTOMATED) 2023-02-14 18:10:00 Blessing Long [facility] AC PANEL 20 + LACTIC ACID 2023-02-14 17:11:00 [facility] + LACTIC ACID 2023-02-14 17:11:[address] [facility] AC PANEL 20 + LACTIC ACID 2023-02-14 17:11:[address] [facility] AC PANEL 20 + LACTIC ACID 2023-02-14 17:11:00 Cynthia Cuellar [facility] POCT GLUCOSE (AUTOMATED) 2023-02-14 16:05:00 LickJasviro [facility] POCT GLUCOSE (AUTOMATED) 2023-02-14 16:05:00 Lick, Jasviro tt [facility] POCT GLUCOSE (AUTOMATED) 2023-02-14 16:05:00 Lick, Jasviro [facility] POCT GLUCOSE (AUTOMATED) 2023-02-14 16:05:00 Lick, Jasviro [facility] TRANSFUSE PACKED RBC 2023-02-14 15:30:00 LeviJeffreyTrung [facility] TRANSFUSE PACKED RBC 2023-02-14 15:30:00 Vivek [facility] lynsey [facility] TRANSFUSE PACKED RBC 2023-02-14 15:30:00 Vietanrosemarie [facility] POCT GLUCOSE (AUTOMATED) 2023-02-14 15:13:00 LickJasviro [facility] POCT GLUCOSE (AUTOMATED) 2023-02-14 15:13:00 Lick, Jasviro [facility] POCT GLUCOSE (AUTOMATED) 2023-02-14 15:13:00 LickJasviro [facility] POCT GLUCOSE (AUTOMATED) 2023-02-14 15:13:00 LickJasviro [facility] PREPARE PACKED RBC 2023-02-14 15:11:20 Smetan [facility] PREPARE PACKED RBC 2023-02-14 15:11:20 Smetanrosemarie [facility] PREPARE PACKED RBC 2023-02-14 15:11:20 Smetana [facility] PREPARE PACKED RBC 2023-02-14 15:11:20 Smetana [facility] POCT GLUCOSE (AUTOMATED) 2023-02-14 14:14:00 Lick, Jasviro [facility] POCT GLUCOSE (AUTOMATED) 2023-02-14 14:14:00 Lick, Jasviro tt [facility] POCT GLUCOSE (AUTOMATED) 2023-02-14 14:14:00 Lick, Sco tt [facility] POCT GLUCOSE (AUTOMATED) 2023-02-14 14:14:00 Blessing Long [facility] AC PANEL 20 + LACTIC ACID 2023-02-14 14:11:00 Rosemarie Zamudio [facility] AC PANEL 20 + LACTIC ACID 2023-02-14 14:11:00 Rosemarie Zamudio [facility] AC PANEL 20 + LACTIC ACID 2023-02-14 14:11:00 Rosemarie Zamudio [facility] AC PANEL 20 + LACTIC ACID 2023-02-14 14:11:00 Rosemarie Zamudio [facility] HB ECG ROUTINE & RHYTHM STRIP 2023-02-14 13:00:26 Jennifer Bradford [facility] HB ECG ROUTINE & RHYTHM STRIP 2023-02-14 13:00:26 Jennifer Bradford [facility] HB ECG ROUTINE & RHYTHM STRIP 2023-02-14 13:00:26 Jennifer Bradford [facility] ABG+COOX+NA+K+GLU+CA2+ 2023-02-14 12:54:00 Jennifer Blackmon [facility] POCT GLUCOSE (AUTOMATED) 2023-02-14 12:54:00 Blessing Long [facility] ABG+COOX+NA+K+GLU+CA2+ 2023-02-14 12:54:00 Jennifer Blackmon [facility] POCT GLUCOSE (AUTOMATED) 2023-02-14 12:54:00 Blessing Long [facility] ABG+COOX+NA+K+GLU+CA2+ 2023-02-14 12:54:00 Jennifer Blackmon [facility] POCT GLUCOSE (AUTOMATED) 2023-02-14 12:54:00 Blessing Long [facility] ABG+COOX+NA+K+GLU+CA2+ 2023-02-14 12:54:00 Jennifer Blackmon [facility] POCT GLUCOSE (AUTOMATED) 2023-02-14 12:54:00 Blessing Long [facility] POCT GLUCOSE (AUTOMATED) 2023-02-14 11:02:00 Lick, Jasviro tt [facility] POCT GLUCOSE (AUTOMATED) 2023-02-14 11:02:00 Lick, Jasviro tt [facility] POCT GLUCOSE (AUTOMATED) 2023-02-14 11:02:00 Lick, Sco tt [facility] POCT GLUCOSE (AUTOMATED) 2023-02-14 11:02:00 Lick, Jasviro [facility] PHOSPHORUS 2023-02-14 10:10:00 Levi [facility] MAGNESIUM 2023-02-14 10:10:00 [facility] BASIC METABOLIC PANEL (NA, K, CL, CO2, GLUCOSE, BUN, CREATININE, CA) 2023-02-14 10:10:00 Levi [facility] CBC WITH DIFF 2023-02-14 10:10:00 Levi [facility] PROTHROMBIN TIME / INR 2023-02-14 10:10:00 Diane Zamudio [facility] AC PANEL 20 + LACTIC ACID 2023-02-14 10:10:00 Rosemarie Zamudio [facility] PROTHROMBIN TIME / INR 2023-02-14 10:10:00 Diane Zamudio [facility] BASIC METABOLIC PANEL (NA, K, CL, CO2, GLUCOSE, BUN, CREATININE, CA) 2023-02-14 10:10:00 Levi [facility] CBC WITH DIFF 2023-02-14 10:10:00 Levi [facility] MAGNESIUM 2023-02-14 10:10:00 Levi [facility] PHOSPHORUS 2023-02-14 10:10:00 Levi [facility] AC PANEL 20 + LACTIC ACID 2023-02-14 10:10:00 [facility]14 10:10:00 Levi [facility] MAGNESIUM 2023-02-14 10:10:00 Levi [facility] BASIC METABOLIC PANEL (NA, K, CL, CO2, GLUCOSE, BUN, CREATININE, CA) 2023-02-14 10:10:00 , [facility] CBC WITH DIFF 2023-02-14 10:10:00 [facility] PROTHROMBIN TIME / INR 2023-02-14 10:10:00 Diane Zamudio [facility] AC PANEL 20 + LACTIC ACID 2023-02-14 10:10:00 Rosemarie Zamudio [facility] PHOSPHORUS 2023-02-14 10:10:00 Vu, [facility] MAGNESIUM 2023-02-14 10:10:00 , [facility] BASIC METABOLIC PANEL (NA, K, CL, CO2, GLUCOSE, BUN, CREATININE, CA) 2023-02-14 10:10:00 Levi [facility] CBC WITH DIFF 2023-02-14 10:10:00 , [facility] PROTHROMBIN TIME / INR 2023-02-14 10:10:00 Diane Zamudio [facility] AC PANEL 20 + LACTIC ACID 2023-02-14 10:10:00 [facility]) 2023-02-14 10:09:00 LickJasviro alfred [facility] POCT GLUCOSE (AUTOMATED) 2023-02-14 10:09:00 Lick, Jasviro tt [facility] POCT GLUCOSE (AUTOMATED) 2023-02-14 10:09:00 Lick, Sco tt [facility] POCT GLUCOSE (AUTOMATED) 2023-02-14 10:09:00 Lick, Jasviro tt [facility] POCT GLUCOSE (AUTOMATED) 2023-02-14 08:56:00 Lick, Sco tt [facility] POCT GLUCOSE (AUTOMATED) 2023-02-14 08:56:00 Lick, Sco tt [facility] POCT GLUCOSE (AUTOMATED) 2023-02-14 08:56:00 Lick, Sco tt [facility] POCT GLUCOSE (AUTOMATED) 2023-02-14 08:56:00 Lick, Sco tt [facility] POCT GLUCOSE (AUTOMATED) 2023-02-14 08:45:00 Lick, Sco tt [facility] POCT GLUCOSE (AUTOMATED) 2023-02-14 08:45:00 Lick, Sco tt [facility] POCT GLUCOSE (AUTOMATED) 2023-02-14 08:45:00 Lick, Sco tt [facility] POCT GLUCOSE (AUTOMATED) 2023-02-14 08:45:00 Lick, Sco tt [facility] XR CHEST 1 VW 2023-02-14 08:25:00 Vu, Mimi-[facility] XR CHEST 1 VW 2023-02-14 08:25:00 Vu, Mimi-[facility] XR CHEST 1 VW 2023-02-14 08:25:00 Vu, Mimi-[facility] XR CHEST 1 VW 2023-02-14 08:25:00 Vu, Mimi-Alexandra [facility] TRANSFUSE PLATELETS 2023-02-14 08:17:00 [facility] 2023-02-14 08:17:00 Vu, [facility]andra [facility] 2023-02-14 08:17:00 Vu, [facility] 2023-02-14 08:17:00 Vu, [facility]andra [facility] PREPARE [facility]ATELETS 2023-02-14 08:12:26 Vu, Mimi-Alexandra [facility] 2023-02-14 08:12:26 Vu, Mimi[facility]andra [facility] 2023-02-14 08:12:26 Vu, Mmii-Alexandra [facility] 2023-02-14 08:12:26 Vu, Mimi[facility]andra [facility] POCT GLUCOSE (AUTOMATED) 2023-02-14 07:38:00 Lick, Sco tt [facility] AC PANEL 20 + LACTIC ACID 2023-02-14 07:38:00 Rosemarie Zamudio [facility] AC PANEL 20 + LACTIC ACID 2023-02-14 07:38:00 Rosemarie Zamudio [facility] POCT GLUCOSE (AUTOMATED) 2023-02-14 07:38:00 Lick, Sco tt [facility] POCT GLUCOSE (AUTOMATED) 2023-02-14 07:38:00 Lick, Sco tt [facility] AC PANEL 20 + LACTIC ACID 2023-02-14 07:38:00 Rosemarie Zamudio [facility] POCT GLUCOSE (AUTOMATED) 2023-02-14 07:38:00 Lick, Sco tt [facility] AC PANEL 20 + LACTIC ACID 2023-02-14 07:38:00 Rosemarie Zamudio [facility] HB ECG ROUTINE & RHYTHM STRIP 2023-02-14 07:06:40 Vu, [facility] HB ECG ROUTINE & RHYTHM STRIP 2023-02-14 07:06:40 Vu, [facility] HB ECG ROUTINE & RHYTHM STRIP 2023-02-14 07:06:40 Levi [facility] TRANSFUSE PACKED RBC 2023-02-14 06:47:00 Levi [facility] TRANSFUSE PACKED RBC 2023-02-14 06:47:00 Levi [facility] TRANSFUSE PACKED RBC 2023-02-14 06:47:00 Levi [facility] TRANSFUSE PACKED RBC 2023-02-14 06:47:00 Levi [facility] PREPARE PACKED RBC 2023-02-14 06:41:07 Leatha Simsh Octavio [facility] PREPARE PACKED RBC 2023-02-14 06:41:07 [facility] 2023-02-14 06:41:07 [facility] 2023-02-14 06:41:07 Ghazal [facility] PO[facility]UCOSE (AUTOMATED) 2023-02-14 06:40:00 Lick, Sco tt [facility] POCT GLUCOSE (AUTOMATED) 2023-02-14 06:40:00 Lick, Sco tt [facility] POCT GLUCOSE (AUTOMATED) 2023-02-14 06:40:00 Lick, Sco tt [facility] POCT GLUCOSE (AUTOMATED) 2023-02-14 06:40:00 Lick, Sco tt [facility] AC PANEL 20 + LACTIC ACID 2023-02-14 06:23:00 Rosemarie Zamudio [facility] AC PANEL 20 + LACTIC ACID 2023-02-14 06:23:00 Rosemarie Zamudio [facility] AC PANEL 20 + LACTIC ACID 2023-02-14 06:23:00 Rosemarie Zamudio [facility] AC PANEL 20 + LACTIC ACID 2023-02-14 06:23:00 Rosemarie Zamudio [facility] POCT GLUCOSE (AUTOMATED) 2023-02-14 05:51:00 Lick, Sco [facility] POCT GLUCOSE (AUTOMATED) 2023-02-14 05:51:00 Lick, Sco tt [facility] POCT GLUCOSE (AUTOMATED) 2023-02-14 05:51:00 Lick, Sco tt [facility] POCT GLUCOSE (AUTOMATED) 2023-02-14 05:51:00 Lick, Sco tt [facility] PHOSPHORUS 2023-02-14 04:54:00 Jackie Zamudio [facility] Are[facility] MAGNESIUM 2023-02-14 04:54:00 Jackie Zamudio [facility] BASIC METABOLIC PANEL (NA, K, CL, CO2, GLUCOSE, BUN, CREATININE, CA) 2023-02-14 04:54:00 Jackie Zamudio [facility] CBC WITH DIFF 2023-02-14 04:54:00 Althea Bradford [facility] PROTHROMBIN TIME / INR 2023-02-14 04:54:00 Vu, [facility] PROTHROMBIN TIME / INR 2023-02-14 04:54:00 Levi [facility] CBC WITH DIFF 2023-02-14 04:54:00 Althea Bradford [facility] MAGNESIUM 2023-02-14 04:54:00 Jackie Zamudio [facility] PHOSPHORUS 2023-02-14 04:54:00 Jackie Zamudio [facility] BASIC METABOLIC PANEL (NA, K, CL, CO2, GLUCOSE, BUN, CREATININE, CA) 2023-02-14 04:54:[facility]-02-14 04:54:00 Jackie Zamudio [facility] MAGNESIUM 2023-02-14 04:54:00 Jackie Zamudio [facility] BASIC METABOLIC PANEL (NA, K, CL, CO2, GLUCOSE, BUN, CREATININE, CA) 2023-02-14 04:54:00 [facility]FF 2023-02-14 04:54:00 Althea Bradford [facility] PROTHROMBIN TIME / INR 2023-02-14 04:54:00 Levi [facility] PHOSPHORUS 2023-02-14 04:54:00 Jackie Zamudio [facility] MAGNESIUM 2023-02-14 04:54:00 Jackie Zamudio [facility] BASIC METABOLIC PANEL (NA, K, CL, CO2, GLUCOSE, BUN, CREATININE, CA) 2023-02-14 04:54:00 [facility] 2023-02-14 04:54:00 Althea Bradford [facility] PROTHROMBIN TIME / INR 2023-02-14 04:54:00 Levi [facility] POCT GLUCOSE (AUTOMATED) 2023-02-14 04:53:00 Lick, Sco [facility] AC PANEL 20 + LACTIC ACID 2023-02-14 04:53:00 [facility] + LACTIC ACID 2023-02-14 04:53:00 Rosemarie Zamudio [facility] POCT GLUCOSE (AUTOMATED) 2023-02-14 04:53:00 Lick, Pro [facility] POCT GLUCOSE (AUTOMATED) 2023-02-14 04:53:00 Lick, Pro tt [facility] AC PANEL 20 + LACTIC ACID 2023-02-14 04:53:00 Rosemarie Zamudio [facility] POCT GLUCOSE (AUTOMATED) 2023-02-14 04:53:00 Lick, Pro tt [facility] AC PANEL 20 + LACTIC ACID 2023-02-14 04:53:00 Rosemarie Zamudio [facility] POCT GLUCOSE (AUTOMATED) 2023-02-14 04:04:00 Lick, Pro [facility] AC PANEL 20 + LACTIC ACID 2023-02-14 04:04:00 Rosemarie Zamudio [facility] AC PANEL 20 + LACTIC ACID 2023-02-14 04:04:00 Rosemarie Zamudio [facility] POCT GLUCOSE (AUTOMATED) 2023-02-14 04:04:00 Lick, [facility] POCT GLUCOSE (AUTOMATED) 2023-02-14 04:04:00 Lick, Pro [facility] AC PANEL 20 + LACTIC ACID 2023-02-14 04:04:00 Rosemarie Zamudio [facility] POCT GLUCOSE (AUTOMATED) 2023-02-14 04:04:00 Lick, Pro tt [facility] AC PANEL 20 + LACTIC ACID 2023-02-14 04:04:00 Rosemarie Zamudio [facility] HB ECG ROUTINE & RHYTHM STRIP 2023-02-14 03:38:00 Jennifer Bradford [facility] HB ECG ROUTINE & RHYTHM STRIP 2023-02-14 03:38:00 Jennifer Bradford [facility] HB ECG ROUTINE & RHYTHM STRIP 2023-02-14 03:38:00 Jennifer Bradford [facility] FIBRINOGEN 2023-02-14 03:30:00 Vu, [facility] FIBRINOGEN 2023-02-14 03:30:00 Vu, [facility] FIBRINOGEN 2023-02-14 03:30:00 Vu, [facility] FIBRINOGEN 2023-02-14 03:30:00 Vu, [facility] PHOSPHORUS 2023-02-14 03:25:00 Jackie Zamudio [facility] MAGNESIUM 2023-02-14 03:25:00 Jackie Zamudio [facility] BASIC METABOLIC PANEL (NA, K, CL, CO2, GLUCOSE, BUN, CREATININE, CA) 2023-02-14 03:25:00 Jackie Zamudio [facility] CBC WITH DIFF 2023-02-14 03:25:00 Althea Bradford [facility] CBC WITH DIFF 2023-02-14 03:25:00 Althea Bradford [facility] BASIC METABOLIC PANEL (NA, K, CL, CO2, GLUCOSE, BUN, CREATININE, CA) 2023-02-14 03:25:00 Jackie Zamudio [facility] MAGNESIUM 2023-02-14 03:25:00 Jackie Zamudio [facility] PHOSPHORUS 2023-02-14 03:25:00 Jackie Zamudio [facility] PHOSPHORUS 2023-02-14 03:25:00 Jackie Zamudio [facility] MAGNESIUM 2023-02-14 03:25:00 Jackie Zamudio [facility] BASIC METABOLIC PANEL (NA, K, CL, CO2, GLUCOSE, BUN, CREATININE, CA) 2023-02-14 03:25:00 Jackie Zamudio [facility] CBC WITH DIFF 2023-02-14 03:25:00 [facility]14 03:25:00 Jackie Zamudio [facility] MAGNESIUM 2023-02-14 03:25:00 Jackie Zamudio [facility] BASIC METABOLIC PANEL (NA, K, CL, CO2, GLUCOSE, BUN, CREATININE, CA) 2023-02-14 03:25:00 Jackie Zamudio [facility] CBC WITH DIFF 2023-02-14 03:25:00 Althea Bradford [facility] TRANSFUSE PACKED RBC 2023-02-14 02:56:00 Vu, [facility] TRANSFUSE PACKED RBC 2023-02-14 02:56:00 Vu, [facility] TRANSFUSE PACKED RBC 2023-02-14 02:56:00 Vu, [facility] TRANSFUSE PACKED RBC 2023-02-14 02:56:00 Vu, [facility] PREPARE PACKED RBC 2023-02-14 02:51:27 Vu, [facility] 2023-02-14 02:51:27 Vu, [facility] 2023-02-14 02:51:27 Vu, [facility] 2023-02-14 02:51:27 Vu, [facility] XR ABDOMEN 1 2023-02-14 02:40:00 Sanchez, Althea houston [facility] XR ABDOMEN 1 2023-02-14 02:40:00 Sanchez, Althea houston [facility] XR ABDOMEN 1 2023-02-14 02:40:00 Sanchez, Althea h[place] [facility] XR ABDOMEN 1 2023-02-14 02:40:00 Sanchez, Nor [facility] ABG+COOX+NA+K+GLU+CA2+ 2023-02-14 02:39:00 Jennifer Blackmon [facility] ABG+COOX+NA+K+GLU+CA2+ 2023-02-14 02:39:00 Jennifer Blackmon [facility] ABG+COOX+NA+K+GLU+CA2+ 2023-02-14 02:39:00 Jennifer Blackmonhleen [facility] ABG+COOX+NA+K+GLU+CA2+ 2023-02-14 02:39:00 Jennifer Blackmon [facility] TRANSFUSE PACKED RBC 2023-02-14 02:13:00 Vu [facility] TRANSFUSE PACKED RBC 2023-02-14 02:13:00 Vu [facility] TRANSFUSE PACKED RBC 2023-02-14 02:13:00 Vu [facility] TRANSFUSE PACKED RBC 2023-02-14 02:13:00 Levi [facility] PREPARE PACKED RBC 2023-02-14 02:07:54 Levi [facility] Un [facility] PREPARE PACKED RBC 2023-02-14 02:07:54 Levi [facility] 2023-02-14 02:07:54 eLvi [facility] PREPARE PACKED RBC 2023-02-14 02:07:54 Levi [facility] XR CHEST 1 2023-02-14 01:59:00 Robb [facility] XR CHEST 1 2023-02-14 01:59:00 Robb [facility] XR CHEST 1 2023-02-14 01:59:00 Robb [facility] XR CHEST 1 2023-02-14 01:59:00 Robb [facility] AC PANEL 20 + LACTIC ACID 2023-02-14 01:54:00 Rosemarie Zamudio [facility] AC PANEL 20 + LACTIC ACID 2023-02-14 01:54:00 Rosemarie Zamudio [facility] AC PANEL 20 + LACTIC ACID 2023-02-14 01:54:00 Rosemarie Zamudio [facility] AC PANEL 20 + LACTIC ACID 2023-02-14 01:54:00 Rosemarie Zamudio [facility] CBC WITH DIFF 2023-02-14 01:48:00 Robb [facility] CBC WITH DIFF 2023-02-14 01:48:00 Robb [facility] CBC WITH DIFF 2023-02-14 01:48:00 Robb [facility] CBC WITH DIFF 2023-02-14 01:48:00 Robb [facility] AC PANEL 20 + LACTIC ACID 2023-02-14 01:32:00 Rosemarie Zamudio [facility] AC PANEL 20 + LACTIC ACID 2023-02-14 01:32:00 Robb, Rosemarie [facility] AC PANEL 20 + LACTIC ACID 2023-02-14 01:32:00 Rosemarie Zamudio [facility] AC PANEL 20 + LACTIC ACID 2023-02-14 01:32:00 Rosemarie Zamudio [facility] MRSA / MSSA SCREEN BY PCR, [facility] 2023-02-14 01:21:00 Levi [facility] MRSA / MSSA SCREEN BY PCR, [facility] 2023-02-14 01:21:00 Levi [facility] MRSA / MSSA SCREEN BY PCR, [facility] 2023-02-14 01:21:00 Levi [facility] MRSA / MSSA SCREEN BY PCR, [facility] 2023-02-14 01:21:00 Levi [facility] BASIC METABOLIC PANEL (NA, K, CL, CO2, GLUCOSE, BUN, CREATININE, CA) 2023-02-14 01:20:00 Robb [facility] CBC WITH DIFF 2023-02-14 01:20:00 Robb [facility] PROTHROMBIN TIME / INR 2023-02-14 01:20:00 Diane Zamudio [facility] AC PANEL 20 + LACTIC ACID 2023-02-14 01:20:00 Rosemarie Zamudio [facility] CBC WITH DIFF 2023-02-14 01:20:00 Robb [facility] BASIC METABOLIC PANEL (NA, K, CL, CO2, GLUCOSE, BUN, CREATININE, CA) 2023-02-14 01:20:00 [facility]EL [facility] + LACTIC ACID 2023-02-14 01:20:00 Rosemarie Zamudio [facility] PROTHROMBIN TIME / INR 2023-02-14 01:20:00 Diane Zamudio [facility] BASIC METABOLIC PANEL (NA, K, CL, CO2, GLUCOSE, BUN, CREATININE, CA) 2023-02-14 01:20:00 Robb [facility] CBC WITH DIFF 2023-02-14 01:20:00 Robb [facility] PROTHROMBIN TIME / INR 2023-02-14 01:20:00 Robb Diane [facility] AC PANEL 20 + LACTIC ACID 2023-02-14 01:20:00 Rosemarie Zamudio [facility] BASIC METABOLIC PANEL (NA, K, CL, CO2, GLUCOSE, BUN, CREATININE, CA) 2023-02-14 01:20:00 Robb [facility] CBC WITH DIFF 2023-02-14 01:20:00 Robb [facility] PROTHROMBIN TIME / INR 2023-02-14 01:20:00 Diane Zamudio [facility] AC PANEL 20 + LACTIC ACID 2023-02-14 01:20:00 Rosemarie Zamudio [facility] PREPARE PACKED RBC 2023-02-14 01:14:31 Noris [facility] PREPARE PACKED RBC 2023-02-14 01:14:31 Noris [facility] PREPARE PACKED RBC 2023-02-14 01:14:31 Daniel [facility] PREPARE PACKED RBC 2023-02-14 01:14:31 Daniel [facility] CBC WITHOUT DIFF 2023-02-14 01:06:00 Berhane [facility] PROTHROMBIN TIME / INR 2023-02-14 01:06:00 Berhane [facility] ACTIVATED PARTIAL THRMPLAS LAURI 2023-02-14 01:06:00 Lick, [facility] FIBRINOGEN 2023-02-14 01:06:00 Lick, [facility] CBC WITHOUT DIFF 2023-02-14 01:06:00 Lick, [facility] PROTHROMBIN TIME / INR 2023-02-14 01:06:00 Lick, [facility] ACTIVATED PARTIAL THRMPLAS LAURI 2023-02-14 01:06:00 Lick, [facility] FIBRINOGEN 2023-02-14 01:06:00 Lick, [facility] CBC WITHOUT DIFF 2023-02-14 01:06:00 Lick, [facility] PROTHROMBIN TIME / INR 2023-02-14 01:06:00 Lick, [facility] ACTIVATED PARTIAL THRMPLAS LAURI 2023-02-14 01:06:00 Lick, [facility] FIBRINOGEN 2023-02-14 01:06:00 Lick, [facility] CBC WITHOUT DIFF 2023-02-14 01:06:00 Lick, [facility] PROTHROMBIN TIME / INR 2023-02-14 01:06:00 Lick, [facility] ACTIVATED PARTIAL THRMPLAS LAURI 2023-02-14 01:06:00 Lick, [facility] FIBRINOGEN 2023-02-14 01:06:00 Lick, [facility] TRANSFUSE PACKED RBC 2023-02-14 00:47:00 Yue Lamb [facility] TRANSFUSE PACKED RBC 2023-02-14 00:47:00 Yue Lamb [facility] TRANSFUSE PACKED RBC 2023-02-14 00:47:00 Yue Lamb [facility] TRANSFUSE PACKED RBC 2023-02-14 00:47:00 Yue Lamb [facility] ISTA ACUTE CARE ARTERIAL 2023-02-14 00:43:00 LicJasvir garcia [facility] ACUTE CARE ARTERIAL 2023-02-14 00:43:00 LickJasvir [facility] ACUTE CARE ARTERIAL 2023-02-14 00:43:00 Lick, [facility] ACUTE CARE ARTERIAL 2023-02-14 00:43:00 Lick, [facility] ACUTE CARE ARTERIAL 2023-02-13 23:50:00 Lick, [facility] ACUTE CARE ARTERIAL 2023-02-13 23:50:00 Lick, [facility] ACUTE CARE ARTERIAL 2023-02-13 23:50:00 Lick, [facility] ACUTE CARE ARTERIAL 2023-02-13 23:50:00 Lick, [facility] TRANSFUSE PLATELETS 2023-02-13 23:49:00 Stacy Lamb [facility] TRANSFUSE PLATELETS 2023-02-13 23:49:00 Stacy Lamb [facility] TRANSFUSE PLATELETS 2023-02-13 23:49:00 Stacy Lamb [facility] TRANSFUSE PLATELETS 2023-02-13 23:49:00 Stacy Lamb [facility] POCT ACT HIGH RANGE 2023-02-13 23:47:00 LicBurke garcia [facility] POCT ACT HIGH RANGE 2023-02-13 23:47:00 [facility] 2023-02-13 23:47:00 Burke Long [facility] TRANSFUSE PLATELETS 2023-02-13 23:46:00 Stacy Lamb [facility] TRANSFUSE PLATELETS 2023-02-13 23:46:00 Stacy Lamb [facility] TRANSFUSE PLATELETS 2023-02-13 23:46:00 Stacy Lamb [facility] TRANSFUSE PLATELETS 2023-02-13 23:46:00 Stacy Lamb [facility] POCT ACT HIGH RANGE 2023-02-13 23:06:00 [facility] PO[facility] ACT HIGH RANGE 2023-02-13 23:06:00 Lick, [facility] PO[facility]IGH RANGE 2023-02-13 23:06:00 [facility] POCT ACT HIGH RANGE 2023-02-13 22:59:00 LickBurke niversity [facility] POCT ACT HIGH RANGE 2023-02-13 22:59:00 LickBurke niversity [facility] POCT ACT HIGH RANGE 2023-02-13 22:59:00 LicBurke garcia [facility] 2023-02-13 22:55:00 Lick, [facility] ACUTE CARE ARTERIAL 2023-02-13 22:55:00 Lick, [facility] 2023-02-13 22:55:00 Lick, [facility] ACUTE CARE ARTERIAL 2023-02-13 22:55:00 Lick, [facility] PREPARE PLATELETS 2023-02-13 22:48:46 Lara Lamb [facility] PREPARE PLATELETS 2023-02-13 22:48:46 Lara Lamb [facility] PREPARE PLATELETS 2023-02-13 22:48:46 Lara Lamb [facility] PREPARE PLATELETS 2023-02-13 22:48:46 Lara Lamb [facility] POCT ACT HIGH RANGE 2023-02-13 22:48:00 LicBurke [facility] POCT ACT HIGH RANGE 2023-02-13 22:48:00 [facility]ke [facility] POCT ACT HIGH RANGE 2023-02-13 22:48:00 [facility]ke [facility] POCT ACT HIGH RANGE 2023-02-13 22:35:00 [facility] POCT ACT HIGH RANGE 2023-02-13 22:35:00 LickBurke niversity [facility] POCT ACT HIGH RANGE 2023-02-13 22:35:00 LicBurke garciaersity [facility] ISTA ACUTE CARE ARTERIAL 2023-02-13 22:26:00 Lick, [facility] ISTA ACUTE CARE ARTERIAL 2023-02-13 22:26:00 Lick, [facility] ISTA ACUTE CARE ARTERIAL 2023-02-13 22:26:00 Lick, [facility] ISTA ACUTE CARE ARTERIAL 2023-02-13 22:26:00 Lick, [facility] POCT ACT HIGH RANGE 2023-02-13 22:19:00 LicBurke garcia niversity [facility] POCT ACT HIGH RANGE 2023-02-13 22:19:00 LicBurke garcia niversity [facility] POCT ACT HIGH RANGE 2023-02-13 22:19:00 LicBurke garcia niversity [facility] POCT ACT HIGH RANGE 2023-02-13 22:09:00 LicBurke garcia niversity [facility] POCT ACT HIGH RANGE 2023-02-13 22:09:00 LicBurke garcia niversity [facility] POCT ACT HIGH RANGE 2023-02-13 22:09:00 Burke Long niversity [facility] ISTA ACUTE CARE ARTERIAL 2023-02-13 21:53:00 Lick, [facility] ISTA ACUTE CARE ARTERIAL 2023-02-13 21:53:00 Lick, [facility] ISTA ACUTE CARE ARTERIAL 2023-02-13 21:53:00 Lick, [facility] ISTAT ACUTE CARE ARTERIAL 2023-02-13 21:53:00 Lick, [facility] POCT ACT HIGH RANGE 2023-02-13 21:50:00 LicBurke garcia niversity [facility] POCT ACT HIGH RANGE 2023-02-13 21:50:00 LicBurke garcia U niversity [facility] POCT ACT HIGH RANGE 2023-02-13 21:50:00 LicBurke garcia U niversity [facility] POCT ACT HIGH RANGE 2023-02-13 21:36:00 Burke Long niversity [facility] POCT ACT HIGH RANGE 2023-02-13 21:36:00 LicBurke garcia niversity [facility] POCT ACT HIGH RANGE 2023-02-13 21:36:00 LicBurke garcia niversity [facility] ISTAT ACUTE CARE ARTERIAL 2023-02-13 21:26:00 Lick, [facility] ISTAT ACUTE CARE ARTERIAL 2023-02-13 21:26:00 Lick, [facility] ISTA ACUTE CARE ARTERIAL 2023-02-13 21:26:00 Lick, [facility] ISTA ACUTE CARE ARTERIAL 2023-02-13 21:26:00 Lick, [facility] POCT ACT HIGH RANGE 2023-02-13 21:15:00 Burke Long niversity [facility] POCT ACT HIGH RANGE 2023-02-13 21:15:00 LicBurke garcia niversity [facility] POCT ACT HIGH RANGE 2023-02-13 21:15:00 LicBurke garcia niversity [facility] ISTA ACUTE CARE ARTERIAL 2023-02-13 21:02:00 Lick, [facility] ISTAT ACUTE CARE ARTERIAL 2023-02-13 21:02:00 Lick, [facility] ISTA ACUTE CARE ARTERIAL 2023-02-13 21:02:00 Lick, [facility] ISTAT ACUTE CARE ARTERIAL 2023-02-13 21:02:00 Lick, [facility] POCT ACT HIGH RANGE 2023-02-13 20:58:00 LicBurke garcia niversity [facility] POCT ACT HIGH RANGE 2023-02-13 20:58:00 LicBurke garcia niversity [facility] POCT ACT HIGH RANGE 2023-02-13 20:58:00 Burke Long niversity [facility] POCT ACT HIGH RANGE 2023-02-13 20:34:00 LicBurke garcia niversity [facility] POCT ACT HIGH RANGE 2023-02-13 20:34:00 LicBurke garcia niversity [facility] POCT ACT HIGH RANGE 2023-02-13 20:34:00 LicBurke garcia niversity [facility] ISTA ACUTE CARE ARTERIAL 2023-02-13 20:32:00 Lick, [facility] ISTA ACUTE CARE ARTERIAL 2023-02-13 20:32:00 Lick, [facility] 2023-02-13 20:32:00 Lick, [facility] 2023-02-13 20:32:00 Lick, [facility] POCT ACT HIGH RANGE 2023-02-13 20:12:00 LicBurke garcia niversity [facility] POCT ACT HIGH RANGE 2023-02-13 20:12:00 LicBurke garcia niversity [facility] POCT ACT HIGH RANGE 2023-02-13 20:12:00 Burke Long niversity [facility] 2023-02-13 19:56:00 Lick, [facility] 2023-02-13 19:56:00 Lick, [facility] 2023-02-13 19:56:00 Lick, [facility] 2023-02-13 19:56:00 Lick, [facility] POCT ACT HIGH RANGE 2023-02-13 19:53:00 LicBurke garcia niversity [facility] POCT ACT HIGH RANGE 2023-02-13 19:53:00 LicBurke garcia niversity [facility] POCT ACT HIGH RANGE 2023-02-13 19:53:00 LicBurke garcia niversity of [facility] POCT ACT HIGH RANGE 2023-02-13 19:34:00 Burke Long niversity [facility] POCT ACT HIGH RANGE 2023-02-13 19:34:00 LicBurke garcia niversity of [facility] POCT ACT HIGH RANGE 2023-02-13 19:34:00 LicBurke garcia niversity [facility] ACUTE CARE ARTERIAL 2023-02-13 19:26:00 Lick, [facility] ACUTE CARE ARTERIAL 2023-02-13 19:26:00 Lick, [facility] 2023-02-13 19:26:00 Lick, [facility] ACUTE CARE ARTERIAL 2023-02-13 19:26:00 Lick, [facility] POCT ACT HIGH RANGE 2023-02-13 19:08:00 [facility] 2023-02-13 19:08:00 [facility] PO[facility] ACT HIGH RANGE 2023-02-13 19:08:00 [facility] 2023-02-13 18:56:00 Lick, [facility] ACUTE CARE ARTERIAL 2023-02-13 18:56:00 Lick, [facility] ACUTE CARE ARTERIAL 2023-02-13 18:56:00 Lick, [facility] ACUTE CARE ARTERIAL 2023-02-13 18:56:00 Lick, [facility] POCT ACT HIGH RANGE 2023-02-13 18:47:00 [facility] PO[facility] ACT HIGH RANGE 2023-02-13 18:47:00 LickBurke niversity [facility] POCT ACT HIGH RANGE 2023-02-13 18:47:00 [facility] 2023-02-13 18:29:00 Lick, [facility] ACUTE CARE ARTERIAL 2023-02-13 18:29:00 Lick, [facility] 2023-02-13 18:29:00 Lick, [facility] ACUTE CARE ARTERIAL 2023-02-13 18:29:00 Lick, [facility] POCT ACT HIGH RANGE 2023-02-13 18:15:00 [facility] PO[facility] HIGH RANGE 2023-02-13 18:15:00 [facility] POCT ACT HIGH RANGE 2023-02-13 18:15:00 Burke Long niversity [facility] ACUTE CARE ARTERIAL 2023-02-13 17:54:00 Lick, [facility] ACUTE CARE ARTERIAL 2023-02-13 17:54:00 Lick, [facility] ACUTE CARE ARTERIAL 2023-02-13 17:54:00 Lick, [facility] ACUTE CARE ARTERIAL 2023-02-13 17:54:00 Lick, [facility] POCT ACT HIGH RANGE 2023-02-13 17:51:00 [facility] PO[facility] HIGH RANGE 2023-02-13 17:51:00 [facility] POCT ACT HIGH RANGE 2023-02-13 17:51:00 [facility] 2023-02-13 17:27:00 Lick, [facility] ACUTE CARE ARTERIAL 2023-02-13 17:27:00 Lick, [facility] 2023-02-13 17:27:00 Lick, [facility] 2023-02-13 17:27:00 Lick, [facility] POCT ACT HIGH RANGE 2023-02-13 17:24:00 [facility] PO[facility] ACT HIGH RANGE 2023-02-13 17:24:00 [facility] POCT ACT HIGH RANGE 2023-02-13 17:24:00 Burke Long [facility] SURGICAL PATHOLOGY EXAM 2023-02-13 17:18:[address] [facility] SURGICAL PATHOLOGY EXAM 2023-02-13 17:18:00 Lick, Scot [facility] SURGICAL PATHOLOGY EXAM 2023-02-13 17:18:00 LickJoshua [facility] ACUTE CARE ARTERIAL 2023-02-13 16:59:00 Lick, [facility] 2023-02-13 16:59:00 Lick, [facility] ACUTE CARE ARTERIAL 2023-02-13 16:59:00 Lick, [facility] ACUTE CARE ARTERIAL 2023-02-13 16:59:00 Lick, [facility] POCT ACT HIGH RANGE 2023-02-13 16:56:00 [facility] 2023-02-13 16:56:00 [facility] PO[facility] HIGH RANGE 2023-02-13 16:56:00 [facility]ke [facility] POCT ACT HIGH RANGE 2023-02-13 16:29:00 [facility] PO[facility] ACT HIGH RANGE 2023-02-13 16:29:00 [facility]Burke [facility] POCT ACT HIGH RANGE 2023-02-13 16:29:00 LicBurke garcia [facility] NERVE BLOCK 2023-02-13 15:05:54 Lokesh Bruce [facility] CENTRAL LINE 2023-02-13 15:04:00 Lokesh Bruce [facility] ACUTE CARE ARTERIAL 2023-02-13 14:30:00 Lick, [facility] ACUTE CARE ARTERIAL 2023-02-13 14:30:00 Lick, [facility] ACUTE CARE ARTERIAL 2023-02-13 14:30:00 Lick, [facility] 2023-02-13 14:30:00 Lick, [facility] INTUBATION 2023-02-13 14:28:00 Angel Paige [facility] POCT ACT HIGH RANGE 2023-02-13 14:26:00 Burke Long [facility] POCT ACT HIGH RANGE 2023-02-13 14:26:00 LicBurke garcia [facility] POCT ACT HIGH RANGE 2023-02-13 14:26:00 Burke Long [facility] ARTERIAL LINE 2023-02-13 14:02:00 Zainab Gissel Octavio [facility] CORONARY ARTERY BYPASS GRAFT 2023-02-13 13:34:00 Lick, [facility] MITRAL VALVE REPLACEMENT 2023-02-13 13:34:00 Lick, Sco tt [facility] AORTIC VALVE REPLACEMENT 2023-02-13 13:34:00 Lick, Sco tt [facility] CORONARY ARTERY BYPASS GRAFT 2023-02-13 13:34:00 Lick, [facility] MITRAL VALVE REPLACEMENT 2023-02-13 13:34:00 Lick, Sco tt [facility] AORTIC VALVE REPLACEMENT 2023-02-13 13:34:00 Lick, Sco tt [facility] HB ECG ROUTINE & RHYTHM STRIP 2023-02-13 12:41:40 Daniel [facility] HB ECG ROUTINE & RHYTHM STRIP 2023-02-13 12:41:40 Daniel [facility] HB ECG ROUTINE & RHYTHM STRIP 2023-02-13 12:41:40 [facility] 2023-02-13 12:22:00 Kiersten Osorio [facility] HB ABO GROUPING 2023-02-13 12:22:00 Kiersten Osorio [facility] HB ABO GROUPING 2023-02-13 12:22:00 Kiersten Osorio [facility] HB ABO GROUPING 2023-02-13 12:22:00 Kiersten Osorio [facility] CONSENT/REFUSAL FOR DIAGNOSIS AND TREATMENT 2023-02-13 12:00:47 Doctor Unassigned, [facility] ASSIGNMENT OF BENEFITS 2023-02-13 11:57:23 Docto r Unassigned, [facility] HOSPITAL ADMISSION 2023-02-13 05:01:00 Doctor Un assigned, [facility] HOSPITAL ADMISSION 2023-02-13 05:01:00 Doctor Un assigned, [facility] XR CHEST 2 VW 2023-02-11 15:44:14 NorisKiersten gamboa Cynthia [facility] XR CHEST 2 VW 2023-02-11 15:44:14 Denisse Osorioara Cynthia Un [facility] FREE T4 2023-01-17 18:20:00 [place] Grande [facility] THYROID STIMULATING HORMONE 2023-01-17 18:20:00 Savannah Grande [facility] COMP. METABOLIC PANEL (64862) 2023-01-17 18:20:00 Savannah Grande [facility] LIPID PANEL (27357)(TOTAL CHOLESTEROL, TRIGLYCERIDES, HDL) 2023-01-17 18:20:00 Savannah Grande [facility] CBC WITH DIFF 2023-01-17 18:20:00 [facility] GLYCOSYLATED HEMOGLOBIN (A1C) 2023-01-17 18:20:00 Savannah Grande [facility] URINALYSIS 2023-01-17 18:20:00 Kiersten Osorio [facility] FREE T3 2023-01-17 18:20:00 [place] [facility] CBC WITH DIFF 2023-01-17 18:20:00 Savannah Grande U [facility] COMP. METABOLIC PANEL ([id number]) 2023-01-17 18:20:00 Savannah Grande [facility] LIPID PANEL (35404)(TOTAL CHOLESTEROL, TRIGLYCERIDES, HDL) 2023-01-17 18:20:00 Savannah Grande [facility] THYROID STIMULATING HORMONE 2023-01-17 18:20:00 Savannah Grande [facility] FREE T4 2023-01-17 18:20:00 [facility] GLYCOS[facility]ATED HEMOGLOBIN (A1C) 2023-01-17 18:20:00 Savannah Grande [facility] FREE T3 2023-01-17 18:20:00 Savannah Grande Un [facility] MICROALBUMIN URINE 2023-01-17 18:20:00 Mandy Grande [facility] VITAMIN D, 25-OH 2023-01-17 18:20:00 Keesha Grande [facility] HCV ANTIBODY 2023-01-17 18:20:00 [facility] [facility] 2023-01-17 18:20:00 Kiersten Osorio [facility] DISCLOSURE AND CONSENT, MEDICAL AND SURGICAL PROCEDURES 2023-01-17 05:01:00 Doctor Unassigned, [facility] DISCLOSURE AND CONSENT, MEDICAL AND SURGICAL PROCEDURES 2023-01-17 05:01:00 Doctor Unassigned, [facility] DISCLOSURE AND CONSENT, MEDICAL AND SURGICAL PROCEDURES 2023-01-17 05:01:00 Doctor Unassigned, [facility] DISCLOSURE AND CONSENT, MEDICAL AND SURGICAL PROCEDURES 2023-01-17 05:01:00 Doctor Unassigned, [facility] POCT HEMOGLOBIN A1C TEST 2023-01-16 16:29:00 Savannah Grande [facility] POCT HEMOGLOBIN A1C TEST 2023-01-16 16:29:00 Savannah Grande [facility] TRANSTHORACIC ECHO (TTE) COMPLETE W/ CONTRAST 2023-01-15 18:59:00 Maryam [facility] LOWER EXTREMITY ARTERIAL DUPLEX BILATERAL - BY VASCULAR LAB 2022-12-28 20:56:00 Maryam [facility] JYOTI EXTREMITY STRESS - BY VASCULAR LAB 2022-12-28 20:00:00 Maryam [facility] CAROTID DUPLEX BILATERAL - BY VASCULAR LAB 2022-12-28 19:00:00 Maryam [facility] CONSENT/REFUSAL FOR DIAGNOSIS AND TREATMENT 2022-11-26 15:02:45 Doctor Unassigned, [facility] POCT GLUCOSE (AUTOMATED) 2022-10-05 23:18:00 Jeremías Castro [facility] POCT GLUCOSE (AUTOMATED) 2022-10-05 17:34:00 Jeremías Castro [facility] POCT GLUCOSE (AUTOMATED) 2022-10-05 14:32:00 Jeremías Castro [facility] POCT GLUCOSE (AUTOMATED) 2022-10-05 10:15:00 Jeremías Castro [facility] BASIC METABOLIC PANEL (NA, K, CL, CO2, GLUCOSE, BUN, CREATININE, CA) 2022-10-05 06:41:00 Vito Cosme [facility] CBC WITH DIFF 2022-10-05 06:41:00 [facility]SE ([facility]OMATED) 2022-10-05 06:32:00 Jeremías Castro [facility] POCT GLUCOSE (AUTOMATED) 2022-10-05 06:08:00 Jeremías Castro [facility] POCT GLUCOSE (AUTOMATED) 2022-10-05 01:45:00 Jeremías Castro [facility] POCT GLUCOSE (AUTOMATED) 2022-10-04 22:52:00 Jeremías Castro [facility] POCT GLUCOSE (AUTOMATED) 2022-10-04 21:58:00 Jeremías Castro [facility] BASIC METABOLIC PANEL (NA, K, CL, CO2, GLUCOSE, BUN, CREATININE, CA) 2022-10-04 20:59:00 Vito Cosme [facility] POCT GLUCOSE (AUTOMATED) 2022-10-04 17:45:00 Jeremías Castro [facility] POCT GLUCOSE (AUTOMATED) 2022-10-04 13:51:00 Jeremías Castro [facility] POCT GLUCOSE (AUTOMATED) 2022-10-04 10:02:00 Jeremías Castro [facility] POCT GLUCOSE (AUTOMATED) 2022-10-04 06:03:00 Jeremías Castro [facility] POCT GLUCOSE (AUTOMATED) 2022-10-04 03:33:00 Jeremías Castro [facility] POCT GLUCOSE (AUTOMATED) 2022-10-03 22:23:00 Chaparro To [facility] POCT GLUCOSE (AUTOMATED) 2022-10-03 17:49:00 Chaparro To [facility] POCT GLUCOSE (AUTOMATED) 2022-10-03 13:55:00 Chaparro To [facility] MAGNESIUM 2022-10-03 10:06:00 Ankita Jeff [facility] TROPONIN I 2022-10-03 10:06:00 Vito Cosme [facility] BASIC METABOLIC PANEL (NA, K, CL, CO2, GLUCOSE, BUN, CREATININE, CA) 2022-10-03 10:06:00 Randee [facility] CBC WITH DIFF 2022-10-03 10:06:00 Randee [facility] POCT GLUCOSE (AUTOMATED) 2022-10-03 10:06:00 Chaparro To [facility] LACTIC ACID WHOLE BLOOD 2022-10-03 06:25:00 Randee [facility] BASIC METABOLIC PANEL (NA, K, CL, CO2, GLUCOSE, BUN, CREATININE, CA) 2022-10-03 06:24:00 Randee [facility] POCT GLUCOSE (AUTOMATED) 2022-10-03 06:24:00 Chaparro To [facility] POCT GLUCOSE (AUTOMATED) 2022-10-03 03:28:00 Chaparro To [facility] BASIC METABOLIC PANEL (NA, K, CL, CO2, GLUCOSE, BUN, CREATININE, CA) 2022-10-03 02:05:00 Randee [facility] POCT GLUCOSE (AUTOMATED) 2022-10-03 02:05:00 Chaparro To [facility] LACTIC ACID WHOLE BLOOD 2022-10-03 02:05:00 Randee [facility] POCT GLUCOSE (AUTOMATED) 2022-10-03 01:04:00 Chaparro To [facility] POCT GLUCOSE (AUTOMATED) 2022-10-03 00:10:00 Chaparro To [facility] XR CHEST 1 VW 2022-10-02 23:30:00 Ankita Jeff [facility] POCT GLUCOSE (AUTOMATED) 2022-10-02 22:55:00 Chaparro To [facility] BASIC METABOLIC PANEL (NA, K, CL, CO2, GLUCOSE, BUN, CREATININE, CA) 2022-10-02 22:52:00 Ankita Jeff [facility] POCT GLUCOSE (AUTOMATED) 2022-10-02 21:58:00 Chaparro To [facility] POCT GLUCOSE (AUTOMATED) 2022-10-02 21:10:00 Chaparro To [facility] POCT GLUCOSE (AUTOMATED) 2022-10-02 20:22:00 Chaparro To [facility] US GALL BLADDER 2022-10-02 19:42:51 Ankita Jeff [facility] BLOOD CULTURE SCREEN 2022-10-02 19:02:00 Lynsey Jeff [facility] BASIC METABOLIC PANEL (NA, K, CL, CO2, GLUCOSE, BUN, CREATININE, CA) 2022-10-02 19:02:00 [facility] ([facility]OMATED) 2022-10-02 18:11[facility]00 [facility]02 17:46:00 Ankita Jeff [facility] CREATININE, URINE RANDOM 2022-10-02 17:46:00 Randee [facility] SODIUM, URINE RANDOM 2022-10-02 17:46:00 Lynsey Jeff [facility] HB ECG ROUTINE & RHYTHM STRIP 2022-10-02 17:30:47 Randee [facility] POCT GLUCOSE (AUTOMATED) 2022-10-02 16:43:00 Chaparro To [facility] AC PANEL 20 + LACTIC ACID 2022-10-02 16:43:00 Mya jorge [facility] PHOSPHORUS 2022-10-02 16:37:00 Ankita Jeff [facility] OSMOLALITY, SERUM OR PLASMA 2022-10-02 16:37:00 Ankita Jeff [facility] BETA HYDROXY-BUTYRATE 2022-10-02 16:37:00 Rosemarie Jeff [facility] TROPONIN I 2022-10-02 16:37:00 [facility]OLIC PANEL (NA, K, CL, CO2, GLUCOSE, BUN, CREATININE, CA) 2022-10-02 16:37:00 [facility] / INR 2022-10-02 16:37:00 [facility] BLOOD [facility] SCREEN 2022-10-02 16:35:00 Lynsey Jeff [facility] POCT GLUCOSE (AUTOMATED) 2022-10-02 15:50:00 Chaparro To [facility] POCT GLUCOSE (AUTOMATED) 2022-10-02 14:06:00 [facility] 2022-10-02 13:26:30 Xiomara To [facility] CREATINE KINASE 2022-10-02 12:25:00 [facility] 2022-10-02 12:25:00 Xiomara To [facility] Areaelmo [facility] COMP. METABOLIC PANEL ([id number]) 2022-10-02 12:25:00 Xiomara To [facility] CBC WITH DIFF 2022-10-02 12:25:00 Xiomara To [facility] PROTHROMBIN TIME / INR 2022-10-02 12:25:00 Aniceto To [facility] ACTIVATED PARTIAL THRMPLAS LAURI 2022-10-02 12:25:00 Xiomara To [facility] CT HEAD WO CONTRAST 2022-10-02 11:47:10 Jesus Alberto To [facility] TROPONIN I 2022-10-02 11:34:00 Xiomara To [facility] ETHANOL 2022-10-02 11:34:00 Xiomara To [facility] URINALYSIS 2022-10-02 11:34:00 Xiomara To [facility] N-TERMINAL PRO-BNP 2022-10-02 11:34:00 Xiomara To [facility] URINE DRUG (IMMUNOASSAY) - COMPREHENSIVE DRUG SCREEN W/O REFLEX 2022-10-02 11:34:00 Xiomara To [facility] HB ECG ROUTINE & RHYTHM STRIP 2022-10-02 10:49:47 Xiomara To [facility] EKG (SCANNED DOCUMENTS) 2022-10-02 06:01:00 Doct or Unassigned, [facility] HOSPITAL ADMISSION 2022-10-02 06:01:00 Doctor Un assigned, [facility] AUTHORIZATION TO RELEASE PHI TO [facility] 2022-09-28 06:01:00 Doctor Unassigned, [facility] CONSENT/REFUSAL FOR DIAGNOSIS AND TREATMENT 2022-09-26 23:23:55 Doctor Unassigned, [facility] POCT SARS-COV-2 ANTIGEN (BINAX NOW) 2022-09-25 00:52:00 Maddi Starr [facility] POCT MOLECULAR STREP 2022-09-25 00:48:00 Unknown, Atte ronald [facility] GLYCOSYLATED HEMOGLOBIN (A1C) 2022-09-18 15:53:00 Savannah Grande [facility] POCT GLUCOSE (AUTOMATED) 2022-09-08 17:53:00 Sigrid Zaidi [facility] POCT GLUCOSE (AUTOMATED) 2022-09-08 14:09:00 Sigrid Zaidi [facility] MAGNESIUM 2022-09-08 11:03:00 Jose E Brito [facility] COMP. METABOLIC PANEL ([id number]) 2022-09-08 11:03:00 Jose E Brito [facility] POCT GLUCOSE (AUTOMATED) 2022-09-08 04:33:00 Sigrid Zaidi [facility] POCT GLUCOSE (AUTOMATED) 2022-09-07 22:22:00 Sigrid Zaidi [facility] POCT GLUCOSE (AUTOMATED) 2022-09-07 18:00:00 Sigrid Zaidi [facility] POCT GLUCOSE (AUTOMATED) 2022-09-07 14:09:00 Sigrid Zaidi [facility] MAGNESIUM 2022-09-07 10:32:00 Suzi Rosas [facility] COMP. METABOLIC PANEL ([id number]) 2022-09-07 10:32:00 Suzi Rosas [facility] N-TERMINAL PRO-BNP 2022-09-07 10:32:00 Suzi Rosas [facility] POCT GLUCOSE (AUTOMATED) 2022-09-07 03:24:00 Sigrid [facility]idi [facility] POCT GLUCOSE (AUTOMATED) 2022-09-06 22:03:00 [facility]) 2022-09-06 18:14:00 [facility] (AUTOMATED) 2022-09-06 14:22:00 [facility]rid [facility] ABORH CONFIRMATION (LAB ONLY) 2022-09-06 12:39:00 [place] [facility] URINALYSIS 2022-09-06 10:57:00 [place] [facility] URINE CULTURE 2022-09-06 10:57:[address] [facility] MAGNESIUM 2022-09-06 10:54:00 Suzi Rosas [facility] COMP. METABOLIC PANEL ([id number]) 2022-09-06 10:54:[address] [facility] HB ABO GROUPING 2022-09-06 10:54:00 [place] [facility] XR CHEST 2 VW 2022-09-06 10:28:[address] [facility] POCT GLUCOSE (AUTOMATED) 2022-09-06 03:36:00 Sigrid [facility] POCT GLUCOSE (AUTOMATED) 2022-09-05 23:39:00 [facility]rid [facility] POCT GLUCOSE (AUTOMATED) 2022-09-05 17:58:00 Sigrid Zaidi F [facility] POCT GLUCOSE (AUTOMATED) 2022-09-05 17:58:00 Sigrid Zaidi [facility] POCT GLUCOSE (AUTOMATED) 2022-09-05 15:38:00 Sigrid Zaidi [facility] POCT GLUCOSE (AUTOMATED) 2022-09-05 15:38:00 Sigrid Zaidi [facility] HB ECG ROUTINE & RHYTHM STRIP 2022-09-05 13:47:19 Ariel Bates [facility] MAGNESIUM 2022-09-05 10:30:00 Ralph [facility] COMP. METABOLIC PANEL ([id number]) 2022-09-05 10:30:[address] [facility] MAGNESIUM 2022-09-05 [facility]OL[facility] ([id number]) 2022-09-05 10:30:00 Suzi Rosas [facility] POCT GLUCOSE (AUTOMATED) 2022-09-05 03:20:00 Sigrid Zaidi [facility] POCT GLUCOSE (AUTOMATED) 2022-09-05 03:20:00 Sigrid Zaidi [facility] ACTIVATED PARTIAL THRMPLAS LAURI 2022-09-04 22:55:[address] [facility] ACTIVATED PARTIAL THRMPLAS LAURI 2022-09-04 22:55:[address] [facility] CARDIAC CATHETERIZATION 2022-09-04 20:07:04 Pastora Zaidi [facility] CARDIAC CATHETERIZATION 2022-09-04 20:07:04 Pastora Zaidi [facility] CARDIAC CATHETERIZATION 2022-09-04 20:07:04 Pastora Zaidi [facility] CARDIAC CATHETERIZATION 2022-09-04 20:07:04 Pastora Zaidi [facility] CARDIAC CATHETERIZATION 2022-09-04 20:07:04 Pastora Zaidi [facility] CARDIAC CATHETERIZATION 2022-09-04 20:07:04 Pastora Zaidi [facility] CARDIAC CATHETERIZATION 2022-09-04 20:07:04 Pastora Zaidi [facility] CARDIAC CATHETERIZATION 2022-09-04 20:07:04 Pastora Zaidi [facility] CATH PROCEDURE LOG 2022-09-04 18:18:35 Sigrid Zaidi [facility] CATH PROCEDURE LOG 2022-09-04 18:18:35 Mario Alberto Sigrid Mauro [facility] HB ECG ROUTINE & RHYTHM STRIP 2022-09-04 14:07:54 Airel Bates [facility] POCT GLUCOSE (AUTOMATED) 2022-09-04 14:04:00 Richie Bates [facility] POCT GLUCOSE (AUTOMATED) 2022-09-04 14:04:00 Richie Bates [facility] MAGNESIUM 2022-09-04 10:47:00 [facility] COMP. METABOLIC PANEL ([id number]) 2022-09-04 10:47:00 Alisha Jose E [facility] MAGNESIUM 2022-09-04 10:47:00 [facility] COMP. METABOLIC PANEL ([id number]) 2022-09-04 10:47:00 Jose E Brito [facility] POCT GLUCOSE (AUTOMATED) 2022-09-04 02:34:00 Richie Bates [facility] POCT GLUCOSE (AUTOMATED) 2022-09-04 02:34:00 Richie Bates [facility] POCT GLUCOSE (AUTOMATED) 2022-09-03 22:50:00 Richie Bates [facility] POCT GLUCOSE (AUTOMATED) 2022-09-03 22:50:00 Richie Bates [facility] POCT GLUCOSE (AUTOMATED) 2022-09-03 17:37:00 Richie Bates [facility] POCT GLUCOSE (AUTOMATED) 2022-09-03 17:37:00 Richie Bates [facility] POCT GLUCOSE (AUTOMATED) 2022-09-03 13:53:00 Richie Bates [facility] POCT GLUCOSE (AUTOMATED) 2022-09-03 13:53:00 Richie Bates [facility] MAGNESIUM 2022-09-03 09:50:00 Hernando Sainz [facility] BASIC METABOLIC PANEL (NA, K, CL, CO2, GLUCOSE, BUN, CREATININE, CA) 2022-09-03 09:50:00 Emeli [facility] CBC WITH DIFF 2022-09-03 09:50:00 Hernando Sainz [facility] MAGNESIUM 2022-09-03 09:50:00 Hernando Sainz [facility] BASIC METABOLIC PANEL (NA, K, CL, CO2, GLUCOSE, BUN, CREATININE, CA) 2022-09-03 09:50:00 Emeli [facility] CBC WITH DIFF 2022-09-03 09:50:00 Hernando Sainz [facility] POCT GLUCOSE (AUTOMATED) 2022-09-03 03:10:00 Richie Bates [facility] POCT GLUCOSE (AUTOMATED) 2022-09-03 03:10:00 Richie Bates [facility] POCT GLUCOSE (AUTOMATED) 2022-09-02 22:27:00 Richie Bates [facility] POCT GLUCOSE (AUTOMATED) 2022-09-02 22:27:00 Richie Bates [facility] POCT GLUCOSE (AUTOMATED) 2022-09-02 17:16:00 Richie Bates [facility] POCT GLUCOSE (AUTOMATED) 2022-09-02 17:16:00 Richie Bates [facility] POCT GLUCOSE (AUTOMATED) 2022-09-02 13:26:00 Richie Bates [facility] POCT GLUCOSE (AUTOMATED) 2022-09-02 13:26:00 Richie Bates [facility] MAGNESIUM 2022-09-02 10:01:00 Ariel Bates [facility] BASIC METABOLIC PANEL (NA, K, CL, CO2, GLUCOSE, BUN, CREATININE, CA) 2022-09-02 10:01:00 [place] 2022-09-02 10:01:00 [facility] 2022-09-02 10:01:00 Jana [facility] BASIC METABOLIC PANEL (NA, K, CL, CO2, GLUCOSE, BUN, CREATININE, CA) 2022-09-02 10:01[place]00 [place] [facility] [place] [facility] N[facility]MINAL [facility] 2022-09-02 10:01[facility]00 [facility]ATED) 2022-09-02 02:40:00 Richie Bates [facility] POCT GLUCOSE (AUTOMATED) 2022-09-02 02:40:00 Richie Bates [facility] POCT GLUCOSE (AUTOMATED) 2022-09-01 23:59:00 Richie Bates jerad [facility] POCT GLUCOSE (AUTOMATED) 2022-09-01 23:59:00 Richie Bates jerad [facility] POCT GLUCOSE (AUTOMATED) 2022-09-01 17:30:00 Richie Bates [facility] POCT GLUCOSE (AUTOMATED) 2022-09-01 17:30:00 Richie Bates [facility] POCT GLUCOSE (AUTOMATED) 2022-09-01 13:54:00 Richie Bates jerad [facility] POCT GLUCOSE (AUTOMATED) 2022-09-01 13:54:00 Richie Bates [facility] MAGNESIUM 2022-09-01 10:56:00 Ariel Bates [facility] HEPATIC FUNCTION PANEL (89873) (ALB,T.PRO,BILI T,BU/BC,ALT,AST,ALK PHOS) 2022-09-01 10:56:00 [facility] BASIC METABOLIC PANEL (NA, K, CL, CO2, GLUCOSE, BUN, CREATININE, CA) 2022-09-01 10:56:00 [facility] LIPID PANEL (58082)(TOTAL CHOLESTEROL, TRIGLYCERIDES, HDL) 2022-09-01 10:56:00 [facility] CBC WITHOUT DIFF 2022-09-01 10:56:00 [facility] 2022-09-01 10:56:00 Ariel Bates [facility] MAGNESIUM 2022-09-01 10:56:00 Ariel Bates [facility] HEPATIC FUNCTION PANEL (28317) (ALB,T.PRO,BILI T,BU/BC,ALT,AST,ALK PHOS) 2022-09-01 10:56:00 [facility] BASIC METABOLIC PANEL (NA, K, CL, CO2, GLUCOSE, BUN, CREATININE, CA) 2022-09-01 10:56:00 [facility] LIPID PANEL (02396)(TOTAL CHOLESTEROL, TRIGLYCERIDES, HDL) 2022-09-01 10:56:00 [facility] CBC WITHOUT DIFF 2022-09-01 10:56:00 Ariel Bates [facility] N-TERMINAL PRO-BNP 2022-09-01 10:56:00 Ariel Bates [facility] POCT GLUCOSE (AUTOMATED) 2022-09-01 02:23:00 Richie Bates [facility] POCT GLUCOSE (AUTOMATED) 2022-09-01 02:23:00 Richie Bates [facility] POCT GLUCOSE (AUTOMATED) 2022-08-31 22:47:00 Richie Bates [facility] POCT GLUCOSE (AUTOMATED) 2022-08-31 22:47:00 Ricihe Bates [facility] TRANSTHORACIC ECHO (TTE) COMPLETE W/ CONTRAST 2022-08-31 21:04:00 Ariel Bates [facility] TRANSTHORACIC ECHO (TTE) COMPLETE W/ CONTRAST 2022-08-31 21:04:00 [facility] CLOSTRIDIUM DIFFICILE TOXIN 2022-08-31 20:48:00 [facility] FECAL [facility]ENS BY PCR 2022-08-31 20:48:00 Kayla Bates [facility] CLOSTRIDIUM DIFFICILE TOXIN 2022-08-31 20:48:00 Ariel Bates [facility] FECAL PATHOGENS BY PCR 2022-08-31 20:48:00 Kayla Bates [facility] POCT GLUCOSE (AUTOMATED) 2022-08-31 17:22:00 Richie Bates [facility] POCT GLUCOSE (AUTOMATED) 2022-08-31 17:22:00 Richie Bates [facility] POCT GLUCOSE (AUTOMATED) 2022-08-31 16:45:00 Richie Bates [facility] POCT GLUCOSE (AUTOMATED) 2022-08-31 16:45:00 Richie Bates [facility] POCT GLUCOSE (AUTOMATED) 2022-08-31 16:23:00 Richie Bates [facility] POCT GLUCOSE (AUTOMATED) 2022-08-31 16:23:00 Richie Bates [facility] POCT GLUCOSE (AUTOMATED) 2022-08-31 16:05:00 Richie Bates [facility] POCT GLUCOSE (AUTOMATED) 2022-08-31 16:05:00 Richie Bates [facility] POCT GLUCOSE (AUTOMATED) 2022-08-31 15:40:00 Richie Bates [facility] POCT GLUCOSE (AUTOMATED) 2022-08-31 15:40:00 Richie Bates [facility] US SCROTUM AND CONTENTS 2022-08-31 15:01:50 April Perdomo [facility] US SCROTUM AND CONTENTS 2022-08-31 15:01:50 April Perdomo [facility] URINALYSIS 2022-08-31 13:30:00 Brandy Perdomo [facility] URINALYSIS 2022-08-31 13:30:00 Brandy Perdomo [facility] XR CHEST 1 VW 2022-08-31 12:47:00 Brandy Perdomo [facility] XR CHEST 1 VW 2022-08-31 12:47:00 Brandy Perdomo [facility] TROPONIN I 2022-08-31 12:45:00 Brandy Perdomo [facility] COMP. METABOLIC PANEL (21363) 2022-08-31 12:45:00 Brandy Perdomo [facility] CBC WITH DIFF 2022-08-31 12:45:00 Brandy Perdomo [facility] GLYCOSYLATED HEMOGLOBIN (A1C) 2022-08-31 12:45:00 Ariel Bates [facility] PROTHROMBIN TIME / INR 2022-08-31 12:45:00 Katelin Perdomo [facility] N-TERMINAL PRO-BNP 2022-08-31 12:45:00 Brandy Perdomo [facility] TROPONIN I 2022-08-31 12:45:00 Brandy Perdomo [facility] COMP. METABOLIC PANEL (17761) 2022-08-31 12:45:00 Brandy Perdomo [facility] CBC WITH DIFF 2022-08-31 12:45:00 Brandy Perdomo [facility] GLYCOSYLATED HEMOGLOBIN (A1C) 2022-08-31 12:45:00 Ariel Bates [facility] PROTHROMBIN TIME / INR 2022-08-31 12:45:00 Katelin Perdomo [facility] N-TERMINAL PRO-BNP 2022-08-31 12:45:00 Brandy Perdomo [facility] HB ECG ROUTINE & RHYTHM STRIP 2022-08-31 12:44:04 Brandy Pedromo [facility] HB ECG ROUTINE & RHYTHM STRIP 2022-08-31 12:44:04 Brandy Perdomo [facility] CONSENT/REFUSAL FOR DIAGNOSIS AND TREATMENT 2022-08-31 12:19:19 Doctor Unassigned, [facility] CONSENT/REFUSAL FOR DIAGNOSIS AND TREATMENT 2022-08-31 12:19:19 Doctor Unassigned, [facility] HOSPITAL ADMISSION 2022-08-31 06:01:00 Doctor Un assigned, [facility] HOSPITAL ADMISSION 2022-08-31 06:01:00 Doctor Un assigned, Progress [facility] Encounters Start Date/Time End Date/Time Encounter Type Admission Type Attending Clinicians Care Facility Care Department Encounter ID Source 2023-02-13 06:56:00 Hospital Encounter Burke Long 1.2.840.1 [id number] [facility] 2024-05-15 15:00:00 2024-05-15 15:00:00 Outpatient R SAVANNAH GRANDE OGECHUKWU [facility] [id number] [facility] 2024-03-28 00:00:00 2024-03-28 16:57:03 Refill Emelia Webb [facility] 1.2.840.114 350.1.13.10 4.2.7.2.[id number] [facility] 2024-03-23 00:00:00 2024-03-25 10:58:[address] [facility] 1.2.840.114 350.1.13.10 4.2.7.2.[id number] [facility] 2024-03-19 00:00:00 2024-03-24 11:31:59 Telephone [place] [facility] 1.2.840.114 350.1.13.10 4.2.7.2.[id number] [facility] 2024-03-17 11:00:00 2024-03-17 11:50:44 Outpatient R SAVANNAH GRANDE OGECHUKWU [facility] [id number] [facility] 2024-03-17 11:00:00 2024-03-17 11:50:44 Office Visit [place] [facility] 1.2.840.114 350.1.13.10 4.2.7.2.[id number] [facility] 2024-03-13 15:00:00 2024-03-13 15:20:00 Office Visit Noel Moreland [facility] 1.2.840.114 350.1.13.10 4.2.7.2.[id number] [facility] 2024-03-13 15:00:00 2024-03-13 15:00:00 Outpatient R LUCAS MORELANDXU [facility] [id number] [facility] 2024-03-11 13:30:00 2024-03-11 13:30:00 Out[facility] [id number] [facility] 2024-03-03 00:00:00 2024-03-04 08:13:45 Telephone PerrySavannah [facility] 1.2.840.114 350.1.13.10 4.2.7.2.[id number] [facility] 2024-03-03 00:00:00 2024-03-03 14:40:49 Telephone Gabriel Grandegriselda [facility] 1.2.840.114 350.1.13.10 4.2.7.2.[id number] [facility] 2024-03-03 00:00:00 2024-03-03 13:53:26 Transition of Care Karen Benavides 1.2.840.114 350.1.13.10 4.2.7.2.[id number] [facility] 2024-02-28 16:41:00 2024-03-02 13:27:00 Inpatient X SIXTO MCKEON [facility] [id number] [facility] 2024-02-28 16:41:00 2024-03-02 13:27:00 Hospital Encounter Aung Dennista Bolivar, Sixto Che, Bernadine [facility] 1.2.840.114 350.1.13.10 4.2.7.2.[id number] [facility] 2024-03-02 00:00:00 2024-03-02 12:19:37 Refill Emelia Webb [facility] 1.2.840.114 350.1.13.10 4.2.7.2.[id number] [facility] 2024-03-02 00:00:00 2024-03-02 09:21:00 Telephone [place] [facility] 1.2.840.114 350.1.13.10 4.2.7.2.[id number] [facility] 2024-02-28 15:30:00 2024-02-28 16:26:29 Outpatient R SAVANNAH GRANDE OGECHUKWU [facility] [id number] [facility] 2024-02-28 15:30:00 2024-02-28 16:26:29 Office Visit [place] [facility] 1.2.840.114 350.1.13.10 4.2.7.2.[id number] [facility] 2024-02-26 00:00:00 2024-02-28 16:09:30 Refill [place] [facility] 1.2.840.114 350.1.13.10 4.2.7.2.[id number] [facility] 2024-02-25 00:00:00 2024-02-25 16:10:01 Telephone Noel Moreland [facility] 1.2.840.114 350.1.13.10 4.2.7.2.[id number] [facility] 2024-02-18 00:00:00 2024-02-18 10:12:54 Patient Outreach Katarina Bhatt [facility] 1.2.840.114 350.1.13.10 4.2.7.2.[id number] [facility] 2024-01-31 15:40:00 2024-01-31 15:53:21 Outpatient R MARYAM [facility] [id number] [facility] 2024-01-31 15:40:00 2024-01-31 15:53:21 [facility] 1.2.840.114 350.1.13.10 4.2.7.2.[id number] [facility] 2024-01-30 00:00:00 2024-01-30 08:49:36 Telephone [place] [facility] 1.2.840.114 350.1.13.10 4.2.7.2.[id number] [facility] 2024-01-29 00:00:00 2024-01-29 15:01:45 Telephone [place] [facility] 1.2.840.114 350.1.13.10 4.2.7.2.[id number] [facility] 2023-12-20 00:00:00 2024-01-25 18:11:19 Patient Secure Msg Doctor Unassigned, Progress [facility] 1.2.840.114 350.1.13.10 4.2.7.2.[id number] [facility] 2023-12-23 00:00:00 2024-01-25 18:09:02 Patient Secure Msg Doctor Unassigned, Progress [facility] 1.2840.114 350.1.13.10 4.2.7.2.[id number] [facility] 2024-01-22 00:00:00 2024-01-22 09:11:09 Nurse Triage MejiaJenny [facility] 1.2840.114 350.1.13.10 4.2.7.2.[id number] [facility] 2024-01-21 00:00:00 2024-01-21 14:01:39 Patient Outreach Gerald Caridad Cynthia [facility] 1.2840.114 350.1.13.10 4.2.7.2.[id number] [facility] 2024-01-17 14:30:00 2024-01-17 15:21:14 Outpatient [facility] [id number] [facility] 2024-01-17 14:30:00 2024-01-17 15:21:14 Office Visit [place] [facility] 1.284.114 350.1.13.10 4.2.7.2.[id number] [facility] 2023-12-04 00:00:00 2023-12-04 00:00:00 Patient Outreach Katarina Bhatt 1.284.114 350.1.13.10 4.2.7.2.[id number] [facility] 2023-12-02 00:00:00 2023-12-02 00:00:00 Patient Outreach Katarina Bhatt 1.2.840.114 350.1.13.10 4.2.7.2.[id number] [facility] 2023-12-02 00:00:00 2023-12-02 00:00:00 Patient Outreach Tatiana Cortés 1.2.840.114 350.1.13.10 4.2.7.2.[id number] [facility] 2023-12-02 00:00:00 2023-12-02 00:00:00 Patient Secure Msg Doctor Unassigned, Progress [facility] 1.2.840.114 350.1.13.10 4.2.7.2.[id number] [facility] 2023-11-28 00:00:00 2023-11-28 00:00:00 Patient Outreach Amado Grantrosemarie [facility] 1.2.840.114 350.1.13.10 4.2.7.2.[id number] [facility] 2023-11-26 00:00:00 2023-11-26 00:00:00 Telephone [place] [facility] 1.2.840.114 350.1.13.10 4.2.7.2.[id number] [facility] 2023-11-25 00:00:00 2023-11-25 00:00:00 Patient Outreach Caridad Duarte [facility] 1.2.840.114 350.1.13.10 4.2.7.2.[id number] [facility] 2023-11-12 15:30:00 2023-11-12 16:41:28 Outpatient R SAVANNAH GRANDE OGECHUKWU [facility] [id number] [facility] 2023-10-30 00:00:00 2023-10-30 00:00:00 Telephone [place] [facility] 1.2.840.114 350.1.13.10 4.2.7.2.[id number] [facility] 2023-10-28 00:00:00 2023-10-28 00:00:00 [facility] 1.2.840.114 350.1.13.10 4.2.7.2.[id number] [facility] 2023-10-28 00:00:00 2023-10-28 00:00:00 [facility] 1.2.840.114 350.1.13.10 4.2.7.2.[id number] [facility] 2023-10-28 00:00:00 2023-10-28 00:00:00 Patient Secure Msg Doctor Unassigned, Progress [facility] 1.2.840.114 350.1.13.10 4.2.7.2.[id number] [facility] 2023-10-25 10:15:00 2023-10-25 10:41:13 Outpatient R SAVANNAH GRANDE OGECHUKWU [facility] [id number] [facility] 2023-10-25 10:15:00 2023-10-25 10:30:00 Wrapper Stitcher Visit 2, Adc Lab [place] [facility] 1.2.840.114 350.1.13.10 4.2.7.2.[id number] [facility] 2023-10-22 00:00:00 2023-10-22 00:00:00 Telephone Aydin Mclean [facility] MARIA L BREWERIO [facility] 1.2840.114 350.1.13.10 4.2.7.2.[id number] [facility] 2023-09-25 00:00:00 2023-09-25 00:00:00 Patient Outreach Marilu Grant 1.2840.114 350.1.13.10 4.2.7.2.[id number] [facility] 2023-09-24 00:00:00 2023-09-24 00:00:00 Patient Outreach Marilu Grant 1.2840.114 350.1.13.10 4.2.7.2.[id number] [facility] 2023-09-10 00:00:00 2023-09-10 00:00:00 Orders Only Doctor Unassigned, Progress [facility] 1.840.114 350.1.13.10 4.2.7.2.[id number] [facility] 2023-08-30 13:45:00 2023-08-30 14:55:35 Outpatient R SHANON GALLARDO [facility] [id number] [facility] 2023-08-30 13:45:00 2023-08-30 14:55:35 Office Visit Shanon Gallardo [facility] 1.0.114 350.1.13.10 4.2.7.2.[id number] [facility] 2023-08-30 00:00:00 2023-08-30 00:00:00 Patient Outreach Katarina Bhatt 1.840.114 350.1.13.10 4.2.7.2.[id number] [facility] 2023-08-30 00:00:00 2023-08-30 00:00:00 Patient Outreach MooTatiana EWELINA [facility] 1.284.114 350.1.13.10 4.2.7.2.[id number] [facility] 2023-08-13 00:00:00 2023-08-13 00:00:00 Patient Secure Msg Doctor Unassigned, Progress [facility] 1.2.114 350.1.13.10 4.2.7.2.[id number] [facility] 2023-08-12 00:00:00 2023-08-12 00:00:00 Patient Outreach Caridad Duarte [facility] 1.284.114 350.1.13.10 4.2.7.2.[id number] [facility] 2023-08-12 00:00:00 2023-08-12 00:00:00 Telephone Caridad Duarte COUNTS [facility]CLUDE [facility] AT [facility] 1.284.114 350.1.13.10 4.2.7.2.[id number] [facility] 2023-08-09 16:00:00 2023-08-09 17:05:14 Outpatient R AYDIN MCLEAN [facility] [id number] [facility] 2023-08-09 16:00:00 2023-08-09 17:05:14 Office Visit Aydin Mclean [facility] 1.284.114 350.1.13.10 4.2.7.2.[id number] [facility] 2023-08-09 00:00:00 2023-08-09 00:00:00 Patient Outreach Katarina Bhatt 1.2840.114 350.1.13.10 4.2.7.2.[id number] [facility] 2023-08-09 00:00:00 2023-08-09 00:00:00 Patient Outreach Herminia Segovia 1.2.840.114 350.1.13.10 4.2.7.2.[id number] [facility] 2023-08-02 15:20:00 2023-08-02 15:45:55 [facility] [id number] [facility] 2023-08-02 15:20:00 2023-08-02 15:45:55 [facility] 1.2840.114 350.1.13.10 4.2.7.2.[id number] [facility] 2023-08-01 00:00:00 2023-08-01 00:00:00 Patient Outreach Katarina Bhatt 1.2.840.114 350.1.13.10 4.2.7.2.[id number] [facility] 2023-07-29 00:00:00 2023-07-29 00:00:00 Patient Outreach Apolonia Bhattceldrake [facility]ex [facility] 1.2.840.114 350.1.13.10 4.2.7.2.[id number] [facility] 2023-07-22 00:00:00 2023-07-22 00:00:00 Patient Outreach Katarina BhattRex [facility] 1.2.840.114 350.1.13.10 4.2.7.2.[id number] [facility] 2023-07-19 00:00:00 2023-07-19 00:00:00 Telephone [place] [facility]AL [facility] 1.2.840.114 350.1.13.10 4.2.7.2.[id number] [facility] 2023-07-18 00:00:00 2023-07-18 00:00:00 Patient Outreach Apolonia Bhattceldrake [facility] 1.2.840.114 350.1.13.10 4.2.7.2.[id number] [facility] 2023-07-16 13:20:00 2023-07-16 14:05:00 Patient Outreach Apolonia Bhattceldrake [facility] 1.2.840.114 350.1.13.10 4.2.7.2.[id number] [facility] 2023-07-09 00:00:00 2023-07-09 00:00:00 Patient Outreach Mark Janeen R [facility] 1.2.840.114 350.1.13.10 4.2.7.2.[id number] [facility] 2023-07-08 11:00:00 2023-07-08 11:00:00 Outpatient R ILANA LINCOLN [facility] [id number] [facility] 2023-07-08 00:00:00 2023-07-08 00:00:00 Patient Outreach Katarina Bhatt [facility] 1.2.840.114 350.1.13.10 4.2.7.2.[id number] [facility] 2023-07-05 16:00:00 2023-07-05 17:01:28 Outpatient R SAVANNAH GRANDE OGECHUKWU [facility] [id number] [facility] 2023-07-05 16:00:00 2023-07-05 17:01:28 Office Visit Drew Grandesharmainemiravirgie [facility] MARIA L FELIZ [facility] 1.2840.114 350.1.13.10 4.2.7.2.[id number] [facility] 2023-07-05 00:00:00 2023-07-05 00:00:00 Patient Outreach Katarina Bhatt [facility] 1.2840.114 350.1.13.10 4.2.7.2.[id number] [facility] 2023-07-04 16:30:00 2023-07-04 16:30:00 Outpatient CHARLES ROBB [facility] [id number] [facility] 2023-07-04 09:30:00 2023-07-04 10:15:00 Patient Outreach Katarina Bhatt 1.2840.114 350.1.13.10 4.2.7.2.[id number] [facility] 2023-07-01 09:30:00 2023-07-01 10:15:00 Patient Outreach Katarina Bhatt 1.2.840.114 350.1.13.10 4.2.7.2.[id number] [facility] 2023-06-25 00:00:00 2023-06-25 00:00:00 Patient Outreach Moo TaylorElmo [facility] 1.2.840.114 350.1.13.10 4.2.7.2.[id number] [facility] 2023-06-18 00:00:00 2023-06-18 00:00:00 Patient Outreach Katarina Bhatt [facility] 1.2840.114 350.1.13.10 4.2.7.2.[id number] [facility] 2023-06-18 00:00:00 2023-06-18 00:00:00 Orders Only Doctor Unassigned, Progress [facility] 1.2.840.114 350.1.13.10 4.2.7.2.[id number] [facility] 2023-06-17 00:00:00 2023-06-17 00:00:00 Patient Outreach Marilu Grant SÁNCHEZ NOEMÍ 1.2840.114 350.1.13.10 4.2.7.2.[id number] [facility] 2023-06-06 00:00:00 2023-06-06 00:00:00 Patient Outreach Katarina Bhatt [facility] 1.2840.114 350.1.13.10 4.2.7.2.[id number] [facility] 2023-06-03 00:00:00 2023-06-03 00:00:00 Orders Only Doctor Unassigned, Progress [facility] 1.2840.114 350.1.13.10 4.2.7.2.[id number] [facility] 2023-05-31 00:00:00 2023-05-31 00:00:00 Telephone Charles Collado [facility] 1.2840.114 350.1.13.10 4.2.7.2.[id number] [facility] 2023-05-30 00:00:00 2023-05-30 00:00:[address] [place] [address] [facility] 1.2.840.114 350.1.13.10 4.2.7.2.[id number] [facility] 2023-05-28 00:00:00 2023-05-28 00:00:00 [facility] [place] 1.2840.114 350.1.13.10 4.2.7.2.[id number] [facility] 2023-05-28 00:00:00 2023-05-28 00:00:00 Orders Only Doctor Unassigned, Progress [facility] 1.2840.114 350.1.13.10 4.2.7.2.[id number] [facility] 2023-05-24 15:00:00 2023-05-24 15:49:39 Outpatient R [id number] [facility] 2023-05-24 15:00:00 2023-05-24 15:49:39 Office Visit [place] [facility] 1.840.114 350.1.13.10 4.2.7.2.[id number] [facility] 2023-05-23 16:30:00 2023-05-23 17:08:38 Outpatient R CHARLES COLLADO [facility] [id number] [facility] 2023-05-23 16:30:00 2023-05-23 17:08:38 Office Visit Charles Collado [facility] 1.0.114 350.1.13.10 4.2.7.2.[id number] [facility] 2023-05-23 00:00:00 2023-05-23 00:00:00 Telephone [place] [facility] 1.2840.114 350.1.13.10 4.2.7.2.[id number] [facility] 2023-05-23 00:00:00 2023-05-23 00:00:00 Telephone [place] [facility] 1.2.840.114 350.1.13.10 4.2.7.2.[id number] [facility] 2023-05-20 00:00:00 2023-05-20 00:00:00 Telephone Charles Collado [facility] 1.2.840.114 350.1.13.10 4.2.7.2.[id number] [facility] 2023-05-20 00:00:00 2023-05-20 00:00:00 Orders Only Doctor Unassigned, Progress [facility] 1.2.840.114 350.1.13.10 4.2.7.2.[id number] [facility] 2023-05-13 00:00:00 2023-05-13 00:00:00 Telephone [place] [facility] 1.2.840.114 350.1.13.10 4.2.7.2.[id number] [facility] 2023-05-10 00:00:00 2023-05-10 00:00:00 Telephone [place] [facility] 1.2.840.114 350.1.13.10 4.2.7.2.[id number] [facility] 2023-05-10 00:00:00 2023-05-10 00:00:00 Telephone [place] [facility] 1.2.840.114 350.1.13.10 4.2.7.2.[id number] [facility] 2023-05-09 00:00:00 2023-05-09 00:00:00 Orders Only Doctor Unassigned, Progress [facility] 1.2.840.114 350.1.13.10 4.2.7.2.[id number] [facility] 2023-05-01 00:00:00 2023-05-01 00:00:00 Telephone [place] [facility] MAR[facility] L [facility] 1.2.840.114 350.1.13.10 4.2.7.2.[id number] [facility] 2023-04-30 00:00:00 2023-04-30 00:00:00 Patient Outreach Marilu Grant 1.2.840.114 350.1.13.10 4.2.7.2.[id number] [facility] 2023-04-30 00:00:00 2023-04-30 00:00:00 Orders Only Doctor Unassigned, Progress [facility] 1.2.840.114 350.1.13.10 4.2.7.2.[id number] [facility] 2023-04-29 00:00:00 2023-04-29 00:00:00 Patient Secure Msg Doctor Unassigned, Progress [facility] 1.2.840.114 350.1.13.10 4.2.7.2.[id number] [facility] 2023-04-26 10:00:00 2023-04-26 17:01:02 Patient Outreach Tatiana Cortés EWELINA DOWD 1.2.840.114 350.1.13.10 4.2.7.2.[id number] [facility] 2023-04-26 16:00:00 2023-04-26 16:49:11 Outpatient R SAVANNAH GRANDE OGECHUKWU [facility] [id number] [facility] 2023-04-26 16:00:00 2023-04-26 16:49:11 Office Visit [place] [facility] 1.2.114 350.1.13.10 4.2.7.2.[id number] [facility] 2023-04-24 00:00:00 2023-04-24 00:00:00 Patient Outreach Tatiana Cortés EWELINA DOWD 1..114 350.1.13.10 4.2.7.2.[id number] [facility] 2023-04-23 13:30:00 2023-04-23 13:30:00 Outpatient R SAVANNAH GRANDE OGECHUKWU [facility] [id number] [facility] 2023-04-21 00:00:00 2023-04-21 00:00:00 Telephone Marcial Munson [facility] 1..114 350.1.13.10 4.2.7.2.[id number] [facility] 2023-04-21 00:00:00 2023-04-21 00:00:00 Telephone Charles Collado [facility] 1..114 350.1.13.10 4.2.7.2.[id number] [facility] 2023-04-19 00:00:00 2023-04-19 00:00:00 Transition of Care Karen Diehl Lyudmila EWELINA DOWD 1.284.114 350.1.13.10 4.2.7.2.[id number] [facility] 2023-04-19 00:00:00 2023-04-19 00:00:00 Telephone [place] [facility] 1.2.840.114 350.1.13.10 4.2.7.2.[id number] [facility] 2023-02-13 06:56:00 2023-04-18 20:02:00 Inpatient BURKE HERRMANN [facility] [id number] [facility] 2023-04-05 00:00:00 2023-04-05 00:00:00 Patient Outreach Tatiana Cortés [facility] 1.2.840.114 350.1.13.10 4.2.7.2.[id number] [facility] 2023-04-01 00:00:00 2023-04-01 00:00:00 Transition of Care Allyn Smith [facility] 1.2.840.114 350.1.13.10 4.2.7.2.[id number] [facility] 2023-03-29 07:00:00 2023-03-29 12:11:00 Surgery [facility] 1.2.840.114 350.1.13.10 4.2.7.2.[id number] [facility] 2023-03-28 14:00:00 2023-03-28 14:00:00 Outpatient CHRISTOPHER FUENTES [facility] [id number] [facility] 2023-03-25 11:28:00 2023-03-25 13:34:00 Surgery [facility] 1.2.840.114 350.1.13.10 4.2.7.2.[id number] [facility] 2023-03-06 18:20:00 2023-03-06 18:20:00 Anesthesia Event Aimee Swain Jacob 1.2.840.1 74441.1.1 3.104.2.7 .3.849409 .[id number] [facility] 2023-03-06 14:20:00 2023-03-06 14:20:00 Outpatient NOEL ROMERO [facility] [id number] [facility] 2023-02-13 09:03:00 2023-02-13 20:10:00 Anesthesia Event Rebekah Odom Sarah 1.2.840.1 98229.1.1 3.104.2.7 .3.758773 .[id number] [facility] 2023-02-13 08:30:00 2023-02-13 16:44:00 Surgery Burke Long 1.2.840.1 92354.1.1 3.104.2.7 .3.216859 .[id number] [facility] 2023-02-13 00:00:00 2023-02-13 00:00:00 Orders Only Doctor Unassigned, Progress 1.2.840.1 80866.1.1 3.104.2.7 .3.404108 .[id number] [facility] 2023-02-12 00:00:00 2023-02-12 00:00:00 Patient Secure Msg Doctor Unassigned, Progress [facility] 1.2.840.114 350.1.13.10 4.2.7.2.[id number] [facility] 2023-02-12 00:00:00 2023-02-12 00:00:00 Travel 1.2.840.1 09829.1.1 3.104.2.7 .3.027979 .8 1.2.840.114 350.1.13.10 4.2.7.3.[id number] [facility] 2023-02-11 10:24:48 2023-02-11 23:59:00 Outpatient KIERSTEN TOLBERT [facility] [id number] [facility] 2023-02-11 10:24:48 2023-02-11 23:59:00 Hospital Encounter Kiersten Osorio 1.2.840.1 43381.1.1 3.104.2.7 .3.632624 .[id number] [facility] 2023-02-05 00:00:00 2023-02-05 00:00:00 Telephone Burke Long 1.2.840.1 65516.1.1 3.104.2.7 .3.182419 .[id number] [facility] 2023-02-04 15:00:00 2023-02-04 15:55:24 Outpatient R ILANA LINCOLN [facility] [id number] [facility] 2023-02-04 15:00:00 2023-02-04 15:55:24 Office Visit Ilana Lincoln 1.2.840.1 56579.1.1 3.104.2.7 .3.254111 .[id number] [facility] 2023-02-04 00:00:00 2023-02-04 00:00:00 Travel 1.2.840.1 19371.1.1 3.104.2.7 .3.942709 .8 1.2.840.114 350.1.13.10 4.2.7.3[id number] [facility] 2023-01-31 16:30:00 2023-01-31 16:30:00 Outpatient R CHRISTOPHER DUMONT [facility] [id number] [facility] 2023-01-28 14:00:00 2023-01-28 14:00:00 Outpatient R NOEL MORELAND [facility] [id number] [facility] 2023-01-24 00:00:00 2023-01-24 00:00:00 Telephone [place] 1.2.840.1 14348.1.1 3.104.2.7 .3.288324 .[id number] [facility] 2023-01-22 00:00:00 2023-01-22 00:00:00 Telephone [place] 1.2.840.1 90425.1.1 3.104.2.7 .3.532077 .[id number] [facility] 2023-01-17 13:00:00 2023-01-17 14:19:06 Outpatient R BURKE LONG [facility] [id number] [facility] 2023-01-17 13:00:00 2023-01-17 14:19:06 Office Visit Burke Long 1.2.840.1 55492.1.1 3.104.2.7 .3.542799 .[id number] [facility] 2023-01-17 12:30:00 2023-01-17 12:45:00 Wrapper Stitcher Visit Aydin Mclean [facility] 1.2.840.1 32263.1.1 3.104.2.7 .3.925795 .[id number] [facility] 2023-01-17 00:00:00 2023-01-17 00:00:00 Travel 1.2.840.1 84195.1.1 3.104.2.7 .3.275616 .8 1.2.840.114 350.1.13.10 4.2.7.3.[id number] [facility] 2023-01-16 10:30:00 2023-01-16 11:54:38 Outpatient R SAVANNAH GRANDE OGECHUKWU [facility] [id number] [facility] 2023-01-16 10:30:00 2023-01-16 11:54:38 Office Visit [place] 1.2.840.1 06235.1.1 3.104.2.7 .3.410613 .[id number] [facility] 2023-01-16 00:00:00 2023-01-16 00:00:00 Telephone Noel Moreland 1.2.840.1 88129.1.1 3.104.2.7 .3.555133 .[id number] [facility] 2023-01-15 12:43:46 2023-01-15 23:59:00 Outpatient R NOEL MORELAND [facility] [id number] [facility] 2023-01-15 12:43:46 2023-01-15 23:59:00 Hospital Encounter Noel Moreland 1.2.840.1 64937.1.1 3.104.2.7 .3.088057 .[id number] [facility] 2023-01-15 00:00:00 2023-01-15 00:00:00 Travel 1.2.840.1 85648.1.1 3.104.2.7 .3.275661 .8 1.2.840.114 350.1.13.10 4.2[address]7.3[id number] [facility] 2023-01-03 00:00:00 2023-01-03 00:00:00 Telephone Noel Moreland 1.2.840.1 05867.1.1 3.104.2.7 .3.595686 .[id number] [facility] 2022-12-28 12:49:06 2022-12-28 23:59:00 Hospital Encounter Noel Moreland 1.2.840.1 59601.1.1 3.104.2.7 .3.385239 .[id number] [facility] 2022-12-28 12:48:42 2022-12-28 12:48:42 Hospital Encounter Noel Moreland 1.2.840.1 63669.1.1 3.104.2.7 .3.315409 .[id number] [facility] 2022-12-28 12:48:18 2022-12-28 12:48:18 Outpatient R NOEL MORELAND [facility] [id number] [facility] 2022-12-28 12:48:18 2022-12-28 12:48:18 Hospital Encounter Noel Moreland 1.2.840.1 10373.1.1 3.104.2.7 .3.555352 .[id number] [facility] 2022-12-28 00:00:00 2022-12-28 00:00:00 Travel 1.2.840.1 14634.1.1 3.104.2.7 .3.195518 .8 1.2.840.114 350.1.13.10 4.2.7.3.[id number] [facility] 2022-12-27 00:00:00 2022-12-27 00:00:00 Refill Noel Moreland 1.2.840.1 90526.1.1 3.104.2.7 .3.555678 .[id number] [facility] 2022-12-06 15:00:00 2022-12-06 15:00:00 Outpatient R CHRISTOPHER DUMONT [facility] [id number] [facility] 2022-12-05 00:00:00 2022-12-05 00:00:00 [facility] 1.2.840.114 350.1.13.10 4.2.7.2.[id number] [facility] 2022-12-04 13:20:00 2022-12-04 13:48:56 Office [facility] 1.2.840.114 350.1.13.10 4.2.7.2.[id number] [facility] 2022-12-04 13:20:00 2022-12-04 13:48:56 Outpatient R MARYAM NOEL [facility] [id number] [facility] 2022-11-26 10:30:00 2022-11-26 11:00:00 Office Visit Ana Quinones [facility] 1..840.114 350.1.13.10 4.2.7.2.[id number] [facility] 2022-11-26 10:30:00 2022-11-26 10:30:00 Outpatient R ANA QUINONES SHIMNRex [facility] [id number] [facility] 2022-11-26 00:00:00 2022-11-26 00:00:00 Orders Only Doctor Unassigned, Progress [facility] 1..840.114 350.1.13.10 4.2.7.2.[id number] [facility] 2022-11-08 09:00:00 2022-11-08 09:00:00 Outpatient R ANA QUINONES SHIMNRex [facility] [id number] [facility] 2022-10-23 15:30:00 2022-10-23 15:30:00 Outpatient R CHRISTOPHER DUMONT [facility] [id number] [facility] 2022-10-15 13:30:00 2022-10-15 14:00:06 Outpatient R SAVANNAH GRANDE OGECHUKWU [facility] [id number] [facility] 2022-10-15 13:30:00 2022-10-15 14:00:06 Office Visit [place] [facility] 1..840.114 350.1.13.10 4.2.7.2.[id number] [facility] 2022-10-12 00:00:00 2022-10-12 00:00:00 Outpatient R CHRISTOPHER DUMONT [facility] [id number] [facility] 2022-10-11 14:00:00 2022-10-11 14:41:47 Outpatient R BURKE LONG [facility] [id number] [facility] 2022-10-11 14:00:00 2022-10-11 14:41:47 Office Visit Burke Long [facility] 1.2840.114 350.1.13.10 4.2.7.2.[id number] [facility] 2022-10-10 00:00:00 2022-10-10 00:00:00 Telephone Bety Boogie [facility] 1.0.114 350.1.13.10 4.2.7.2.[id number] [facility] 2022-10-09 00:00:00 2022-10-09 00:00:00 Transition of Care Karen Dihel [facility] 1.20.114 350.1.13.10 4.2.7.2.[id number] [facility] 2022-10-02 04:41:00 2022-10-05 18:20:00 Inpatient X BRIAN MATTHEW [facility] [id number] [facility] 2022-10-02 04:41:00 2022-10-05 18:20:00 Hospital Encounter Xiomara To Victor J Farr, Norman [facility] 1..114 350.1.13.10 4.2.7.2.[id number] [facility] 2022-10-04 14:15:00 2022-10-04 14:15:00 Outpatient R BURKE LONG [facility] [id number] [facility] 2022-09-28 10:15:00 2022-09-28 10:51:38 Outpatient R AYLIN ALCANTAR [facility] [id number] [facility] 2022-09-28 10:15:00 2022-09-28 10:51:38 Office Visit Aylin Alcantar [facility] 1.840.114 350.1.13.10 4.2.7.2.[id number] [facility] 2022-09-28 00:00:00 2022-09-28 00:00:00 Orders Only Doctor Unassigned, Progress [facility] 1.840.114 350.1.13.10 4.2.7.2.[id number] [facility] 2022-09-26 17:36:00 2022-09-26 18:39:00 Emergency X XIOMARA TO [facility] E[facility] [id number] [facility] 2022-09-26 17:36:00 2022-09-26 18:39:00 Emergency Xiomara To [facility] 1.840.114 350.1.13.10 4.2.7.2.[id number] [facility] 2022-09-24 18:40:00 2022-09-24 19:00:00 Urgent Care Maddi Starr Unknown, Attending COUNTS INCLUDE 234 BEDS AT THE [facility] 1..840.114 350.1.13.10 4.2.7.2.[id number] [facility] 2022-09-24 18:40:00 2022-09-24 18:40:00 Outpatient R MADDI STARR [facility] [id number] [facility] 2022-09-24 00:00:00 2022-09-24 00:00:00 Telephone Christopher Dumont [facility] 1.2.840.114 350.1.13.10 4.2.7.2.[id number] [facility] 2022-09-21 15:30:00 2022-09-21 16:00:00 Office Visit Christopher Dumont [facility] 1.2.840.114 350.1.13.10 4.2.7.2.[id number] [facility] 2022-09-21 15:30:00 2022-09-21 15:30:00 Outpatient R CHRISTOPHER DUMONT [facility] [id number] [facility] 2022-09-18 10:00:00 2022-09-18 10:15:00 Wrapper Stitcher Visit 2, Adc Lab [place] [facility] 1.2840.114 350.1.13.10 4.2.7.2.[id number] [facility] 2022-09-18 09:00:00 2022-09-18 09:44:55 [id number] 2022-09-18 09:00:00 2022-09-18 09:44:55 Office Visit [place] [facility] 1.2.840.114 350.1.13.10 4.2.7.2.[id number] [facility] 2022-09-10 00:00:00 2022-09-10 00:00:00 Transition of Care Nicole Clifford 1.2.840.114 350.1.13.10 4.2.7.2.[id number] [facility] 2022-08-31 06:32:00 2022-09-08 15:03:00 Inpatient X SIGRID ZAIDI [facility] [id number] [facility] 2022-08-31 06:32:00 2022-09-08 15:03:00 Hospital Encounter Conor, Brandy Andrade, Milton Bates, Sigrid Araujo Shantal Bartlett, Bran Cavazos [facility] 1.2.840.114 350.1.13.10 4.2.7.2.[id number] [facility] 2022-09-04 10:23:00 2022-09-04 13:23:00 Surgery Motiwala, Afaq [facility] 1.2.840.114 350.1.13.10 4.2.7.2.[id number] [facility] 2022-08-28 00:00:00 2022-08-28 00:00:00 [facility] 1.2.840.114 350.1.13.10 4.2.7.2.[id number] [facility] 2022-07-06 00:00:00 2022-07-06 00:00:00 Telephone Ana Quinones [facility] 1.2.840.114 350.1.13.10 4.2.7.2.[id number] [facility] 2022-06-05 11:00:00 2022-06-05 11:24:27 [facility] [id number] [facility] 2022-06-05 11:00:00 2022-06-05 11:24:27 [facility] 1.2.840.114 350.1.13.10 4.2.7.2.[id number] [facility] 2022-05-10 10:30:00 2022-05-10 11:16:27 Outpatient R ANA QUINONES SHIWAN [facility] [id number] [facility] 2022-05-10 10:30:00 2022-05-10 11:16:27 Office Visit Ana Quin[facility] 1.2.840.114 350.1.13.10 4.2.7.2.[id number] [facility] 2022-04-13 00:00:00 2022-04-13 00:00:00 Telephone Noel Moreland [facility] 1.2.840.114 350.1.13.10 4.2.7.2.[id number] [facility] 2022-04-09 17:30:00 2022-04-09 21:09:00 Emergency X JANNET MAN [facility] ERT [id number] [facility] 2022-04-09 17:30:00 2022-04-09 21:09:00 Emergency Jannet Man [facility] 1.2.840.114 350.1.13.10 4.2.7.2.[id number] [facility] 2022-03-30 10:30:00 2022-03-30 10:30:00 Outpatient R ANA QUINONES SHIWAN [facility] [id number] [facility] 2022-03-30 10:30:00 2022-03-30 10:30:00 Outpatient R ANA QUINONES SHIWAN [facility] [id number] [facility] 2022-03-15 00:00:00 2022-03-15 00:00:00 Outpatient [facility] [id number] [facility] 2022-03-15 00:00:00 2022-03-15 00:00:00 Out[address] [facility] [id number] [facility] 2022-03-07 00:00:00 2022-03-07 00:00:00 Transition of Care DiehlKaren luna 1.84.114 350.1.13.10 4.2.7.2.[id number] [facility] 2022-03-06 00:00:00 2022-03-06 00:00:00 Telephone Ana Quinones [facility] 1..114 350.1.13.10 4.2.7.2.[id number] [facility] 2022-03-05 20:13:00 2022-03-05 22:47:00 Emergency X RIDJIMENEZ, [facility] ERT [id number] [facility] 2022-03-05 20:13:00 2022-03-05 22:47:00 Emergency [place], [facility] 1.84.114 350.1.13.10 4.2.7.2.[id number] [facility] 2022-03-05 20:13:00 2022-03-05 22:47:00 Emergency X RIDDLE, [facility] ERT [id number] [facility] 2022-02-27 10:08:00 2022-03-04 18:00:00 Inpatient X SIXTO MCKEON [facility] JESICA [id number] [facility] 2022-02-27 10:08:00 2022-03-04 18:00:00 Inpatient X SIXTO MCKEON [facility] JES[facility] [id number] [facility] 2022-02-27 10:08:00 2022-03-04 18:00:00 Hospital Encounter Grecia Gandhi David [facility] 1.84.114 350.1.13.10 4.2.7.2.[id number] [facility] 2022-02-27 10:08:00 2022-03-04 18:00:00 Inpatient SIXTO TALAVERA [facility] [id number] [facility] 2022-02-27 09:20:00 2022-02-27 10:15:56 Outpatient Tori MADDI STARR [facility] [id number] [facility] 2022-02-27 09:20:00 2022-02-27 10:15:56 Urgent Care Kj, Gabriela Starr, Critical access hospital VIANCA[facility] 1.2.840.114 350.1.13.10 4.2.7.2.[id number] [facility] 2022-02-27 09:20:00 2022-02-27 10:15:56 [facility]patient [facility] [id number] [facility] 2022-02-27 09:20:00 2022-02-27 10:15:56 Outpatient Tori STARRMADDI [facility] [id number] [facility] 2022-02-27 10:08:00 2022-02-27 10:08:00 Inpatient SIXTO TALAVERA [facility] [id number] [facility] 2022-02-21 14:00:00 2022-02-21 14:00:00 Outpatient TERRA ROMEROSAMPSON [facility] [id number] [facility] 2022-02-21 14:00:00 2022-02-21 14:00:00 Outpatient R LUCAS [facility] [id number] [facility] 2022-02-21 14:00:00 2022-02-21 14:00:00 Outpatient R TERRA [facility] [id number] [facility] 2022-02-21 14:00:00 2022-02-21 14:00:00 Outpatient R TERRA [facility] [id number] [facility] 2022-01-18 00:00:00 2022-01-18 00:00:00 [facility] 1.2.840.114 350.1.13.10 4.2.7.2.[id number] [facility] 2022-01-03 00:00:00 2022-01-03 00:00:00 [facility] [id number] [facility] 2022-01-03 00:00:00 2022-01-03 00:00:00 Outpatient R M[facility]AM[facility] [id number] [facility] 2022-01-03 00:00:00 2022-01-03 00:00:00 Outpatient R M[facility]AM[facility] [id number] [facility] 2021-12-21 10:45:00 2021-12-21 11:00:00 Wrapper Stitcher Visit 2, Adc Lab Maryam [facility] 1.2.840.114 350.1.13.10 4.2.7.2.[id number] [facility] 2021-12-21 10:45:00 2021-12-21 10:45:00 Outpatient R [facility] [id number] [facility] 2021-12-21 09:40:00 2021-12-21 10:18:00 Outpatient R MARYAM[facility] [id number] [facility] 2021-12-21 09:40:00 2021-12-21 10:18:00 Office Visit Maryam [facility] 1.2.840.114 350.1.13.10 4.2.7.2.[id number] [facility] 2021-12-21 09:40:00 2021-12-21 10:18:00 Outpatient R [facility]AM[facility] [id number] [facility] 2021-12-06 00:00:00 2021-12-06 00:00:00 Telephone Noel Moreland [facility] 1.2.840.114 350.1.13.10 4.2.7.2.[id number] [facility] 2021-11-27 00:00:00 2021-11-27 00:00:00 [facility] 1.2.840.114 350.1.13.10 4.2.7.2.[id number] [facility] 2021-11-22 00:00:00 2021-11-22 00:00:00 Telephone JoniKelirex [facility] 1.2.840.114 350.1.13.10 4.2.7.2.[id number] [facility] 2021-11-16 11:53:07 2021-11-16 23:59:00 Outpatient R ANA QUINONES [facility] [id number] [facility] 2021-11-16 11:53:07 2021-11-16 23:59:00 Outpatient R ANA QUINONES [facility] [id number] [facility] 2021-11-16 11:53:07 2021-11-16 23:59:00 Hospital Encounter Ana Quinones [facility] 1.2.840.114 350.1.13.10 4.2.7.2.[id number] [facility] 2021-11-16 11:00:00 2021-11-16 11:30:00 Office Visit Ana Quinones [facility] 1.2.840.114 350.1.13.10 4.2.7.2.[id number] [facility] 2021-11-16 11:00:00 2021-11-16 11:00:00 Outpatient R ANA QUINONES JONI KELIRex [facility] [id number] [facility] 2021-11-16 11:00:00 2021-11-16 11:00:00 Outpatient R CHRIS QUINONESABDI QUINONES KELIRex [facility] [id number] [facility] 2021-11-16 00:00:00 2021-11-16 00:00:[address] 1.2.840.114 350.1.13.10 4.2.7.2.[id number] [facility] 2021-11-13 16:00:00 2021-11-13 16:32:39 [facility] 1.2.840.114 350.1.13.10 4.2.7.2.[id number] [facility] 2021-11-13 16:00:00 2021-11-13 16:32:39 [facility] [id number] [facility] 2021-11-13 16:00:00 2021-11-13 16:32:39 [facility] [id number] [facility] 2021-11-13 00:00:00 2021-11-13 00:00:00 Orders Only Doctor Unassigned, Progress [facility] 1..840.114 350.1.13.10 4.2.7.2.[id number] [facility] Results Test Description Test Time Test Comments Results Result Co [facility]:31:31* Test Item Value Reference Range Interpretation Comme nts POCT GLU (test code = 1737085054) 109 mg/dL 70-110 Lab Interpretation (test cod e = 20215-5) Normal [facility] GLUCOSE (AUTOMATED)2024-03-02 01:28:49* Test Item Value Reference Range Interpretation Comme nts POCT GLU (test code = 5183515710) 162 mg/dL 70-110 H Lab Interpretation (test cod e = 61273-2) Abnormal [facility] GLUCOSE (AUTOMATED)2024-03-01 21:19:37* Test Item Value Reference Range Interpretation Comme nts POCT GLU (test code = 7053791254) 119 mg/dL 70-110 H Lab Interpretation (test cod e = 31900-7) Abnormal [facility] GLUCOSE (AUTOMATED)2024-03-01 16:30:35* Test Item Value Reference Range Interpretation Comme nts POCT GLU (test code = 1253400616) 166 mg/dL 70-110 H Lab Interpretation (test cod e = 18343-2) Abnormal [facility] GLUCOSE (AUTOMATED)2024-03-01 12:34:26* Test Item Value Reference Range Interpretation Comme nts POCT GLU (test code = 8819785067) 96 mg/dL 70-110 Lab Interpretation (test cod e = 78811-2) Normal [facility] GLUCOSE (AUTOMATED)2024-03-01 01:32:40* Test Item Value Reference Range Interpretation Comme nts POCT GLU (test code = 1263372962) 123 mg/dL 70-110 H Lab Interpretation (test cod e = 65611-6) Abnormal [facility] GLUCOSE (AUTOMATED)2024-02-29 21:23:10* Test Item Value Reference Range Interpretation Comme nts POCT GLU (test code = 6818613318) 127 mg/dL 70-110 H Lab Interpretation (test cod e = 52286-9) Abnormal [facility] GLUCOSE (AUTOMATED)2024-02-29 16:29:42* Test Item Value Reference Range Interpretation Comme nts POCT GLU (test code = 5305391526) 158 mg/dL 70-110 H Lab Interpretation (test cod e = 50654-3) Abnormal [facility] GLUCOSE (AUTOMATED)2024-02-29 12:23:42* Test Item Value Reference Range Interpretation Comme nts POCT GLU (test code = 5901368399) 106 mg/dL 70-110 Lab Interpretation (test cod e = 00852-4) [facility] / [id number] 00:36:05* Test Item Value Reference Range Interpretation Comme nts PROTIME PATIENT (test code = 5964-2) 12.5 10.1-12.6 INR (test code = 6301-6) 1.1 Normal INR <1.1; Warfarin Therapeutic range 2.0 to 3.0 or 2.5 to 3.5, depending upon the indications. Lab Interpretation (test code = 04533-6) Normal [facility] [id number] 00:25:27* Test Item Value Reference Range Interpretation Comme nts TROPONIN I (test code = 8546664863) 0.025 ng/mL <=0.034 MIKAYLA (test code = MIKAYLA) Reference (Normal) [...] patient's use of biotin. Lab Interpretation (test code = 59441-5) [facility][id number] 00:22:45* Test Item Value Reference Range Interpretation Comme nts NT-proBNP (test code = 45521-5) 2070 pg/mL <=125 H MIKAYLA (test code = MIKAYLA) Positive: Heart Failure Likely Lab Interpretation (test code = 69847-2) [facility] (75479)2024-02-29 00:14:43* Test Item Value Reference Range Interpretation Comme nts NA (test code = 1009569665) 139 mmol/L 135-145 K (test code = 6506941387) 3.7 mmol/L 3.5-5.0 CL (test code = 1012477827) 107 mmol/L 98-108 CO2 TOTAL (test code = 7781555447) 24 mmol/L 23-31 AGAP (test code = 8026802752) 8 2-16 BUN (test code = 7178484149) 27 mg/dL 7-23 H GLUCOSE (test code = 4655725773) 121 mg/dL 70-110 H CREATININE (test code = 2160-0) 1.89 mg/dL 0.60-1.25 H TOTAL BILI (test code = 0569611371) 1.3 mg/dL 0.1-1.1 H CALCIUM (test code = 1543933610) 9.0 mg/dL 8.6-10.6 T PROTEIN (test code = 4376262393) 8.3 g/dL 6.3-8.2 H ALBUMIN (test code = 3890347481) 4.2 g/dL 3.5-5.0 ALK PHOS (test code = 4130159635) 98 U/L 34-122 ALTv (test code = 1742-6) 9 U/L 5-50 AST(SGOT) (test code = 0742179841) 20 U/L 13-40 eGFR (test code = 73520-3) 39.6 mL/min/1.73m2 CKD-EPI eGFR (2020). Assuming creatinine has been stable day-to-day for at least three months, the eGFR indicates Category G3b (30 - 44 mL/min/1.73 m2) Lab Interpretation (test code = 62777-5) [facility] [id number] 00:05:22Exam: XR CHEST 1 , 02/28/2024 5:15 PM. Ordering Physician: STEPHANIE DENNIS. History: arm swelling, wheezing . Technique: One view of the chest. Comparison: None. Findings: Blunting of the bilateral costophrenic angles. Prominent pulmonaryinterstitium with hazy opacities in the right lower lobe. No p neumothorax.Cardiomegaly. Sternotomy wires and mediastinal surgical changes. [facility] with [id number] 23:56:02* Test Item Value Reference Range Interpretation Comme nts WBC (test code = 6690-2) 9.98 4.20-10.70 RBC (test code = 789-8) 5.56 4.26-5.52 H HGB (test code = 718-7) 14.5 g/dL 12.2-16.4 HCT (test code = 4544-3) 46.1 % 38.4-49.3 MCV (test code = 787-2) 82.9 fL 81.7-95.6 MCH (test code = 785-6) 26.1 pg 26.1-32.7 MCHC (test code = 786-4) 31.5 g/dL 31.2-35.0 RDW-SD (test code = 16167-3) 49.3 fL 38.5-51.6 RDW-CV (test code = 788-0) 16.5 % 12.1-15.4 H PLT (test code = 777-3) 218 150-328 MPV (test code = 34827-9) 11.4 fL 9.8-13.0 NRBC/100 WBC (test code = 2546224447) 0.0 0.0-10.0 NRBC x10^3 (test code = 8108813372) See_Comment [Automated messa ge] The system which generated this result transmitted reference range: 10*3/?L. The reference range was not used to interpret this result as normal/abnormal. GRAN MAT (NEUT) % (test code = 770-8) 71.8 % IMM GRAN % (test code = 8874256965) 0.40 % LYMPH % (test code = 736-9) 16.6 % MONO % (test code = 5905-5) 6.8 % EOS % (test code = 713-8) 3.9 % BASO % (test code = 706-2) 0.5 % GRAN MAT x10^3(ANC) (test code = 3047635860) 7.16 10*3/uL 1.99-6.95 H IMM GRAN x10^3 (test code = 8957730359) 0.04 10*3/uL 0.00-0.06 LYMPH x10^3 (test code = 731-0) 1.66 10*3/uL 1.09-3.23 MONO x10^3 (test code = 742-7) 0.68 10*3/uL 0.36-1.02 EOS x10^3 (test code = 711-2) 0.39 10*3/uL 0.06-0.53 BASO x10^3 (test code = 704-7) 0.05 10*3/uL 0.01-0.09 Lab Interpretation (test code = 25357-5) Abnormal [facility] GLUCOSE (AUTOMATED)2023-04-01 17:55:13* Test Item Value Reference Range Interpretation Comme nts POCT GLU (test code = 7099525444) 108 mg/dL 70-110 Lab Interpretation (test cod e = 61310-7) Normal [facility] [id number] 15:16:32* Test Item Value Reference Range Interpretation Comme nts FUNGUS CULTURE (test code = 580-1) No fungi isolated Lab Interpretation (test code = 97508-8) Normal [facility] GLUCOSE (AUTOMATED)2023-04-01 12:59:24* Test Item Value Reference Range Interpretation Comme nts POCT GLU (test code = 3813246127) 131 mg/dL 70-110 H Lab Interpretation (test cod e = 91902-6) Abnormal [facility] GLUCOSE (AUTOMATED)2023-04-01 11:58:06* Test Item Value Reference Range Interpretation Comme nts POCT GLU (test code = 0929969503) 160 mg/dL 70-110 H Lab Interpretation (test cod e = 67951-0) Abnormal [facility] GLUCOSE (AUTOMATED)2023-04-01 09:20:17* Test Item Value Reference Range Interpretation Comme nts POCT GLU (test code = 9578362830) 174 mg/dL 70-110 H Notified Provide r Lab Interpretation (test code = 37590-5) Abnormal [facility] GLUCOSE (AUTOMATED)2023-04-01 04:38:30* Test Item Value Reference Range Interpretation Comme nts POCT GLU (test code = 3687788519) 136 mg/dL 70-110 H Notified Provide r Lab Interpretation (test code = 92519-0) Abnormal [facility] GLUCOSE (AUTOMATED)2023-03-31 22:53:39* Test Item Value Reference Range Interpretation Comme nts POCT GLU (test code = 7212848301) 132 mg/dL 70-110 H Lab Interpretation (test cod e = 96541-1) [facility] 17:56:29* Test Item Value Reference Range Interpretation Comme nts POCT GLU (test code = 2425914104) 149 mg/dL 70-110 H Notified Provide r Lab Interpretation (test code = 71448-3) [facility] 13:53:42* Test Item Value Reference Range Interpretation Comme nts POCT GLU (test code = 1801046366) 138 mg/dL 70-110 H Lab Interpretation (test cod e = 67691-9) [facility] 12:45:51* Test Item Value Reference Range Interpretation Comme nts POCT GLU (test code = 8456483252) 136 mg/dL 70-110 H Lab Interpretation (test cod e = 96237-7) Abnormal [facility] GLUCOSE (AUTOMATED)2023-03-31 11:01:20* Test Item Value Reference Range Interpretation Comme nts POCT GLU (test code = 3755981088) 135 mg/dL 70-110 H Lab Interpretation (test cod e = 39041-9) [facility] 05:01:46* Test Item Value Reference Range Interpretation Comme nts POCT GLU (test code = 1983990038) 149 mg/dL 70-110 H Lab Interpretation (test cod e = 08204-1) [facility]23-[facility]30 23:34:33* Test Item Value Reference Range Interpretation Comme nts POCT GLU (test code = 9979734676) 141 mg/dL 70-110 H Lab Interpretation (test cod e = 46818-5) [facility] 17:22:35* Test Item Value Reference Range Interpretation Comme nts POCT GLU (test code = 3284752477) 149 mg/dL 70-110 H Lab Interpretation (test cod e = 62587-2) [facility]23-[facility]-30 15:06:15* Test Item Value Reference Range Interpretation Comme nts POCT GLU (test code = 2529572525) 159 mg/dL 70-110 H Lab Interpretation (test cod e = 66414-3) Abnormal [facility] GLUCOSE (AUTOMATED)2023-03-30 11:14:43* Test Item Value Reference Range Interpretation Comme nts POCT GLU (test code = 5012289828) 159 mg/dL 70-110 H Lab Interpretation (test cod e = 76541-7) Abnormal [facility] GLUCOSE (AUTOMATED)2023-03-30 05:18:41* Test Item Value Reference Range Interpretation Comme nts POCT GLU (test code = 0111235261) 181 mg/dL 70-110 H Lab Interpretation (test cod e = 59025-8) Abnormal [facility] GLUCOSE (AUTOMATED)2023-03-30 04:07:12* Test Item Value Reference Range Interpretation Comme nts POCT GLU (test code = 9482094585) 189 mg/dL 70-110 H Lab Interpretation (test cod e = 39750-6) Abnormal [facility] GLUCOSE (AUTOMATED)2023-03-29 23:45:36* Test Item Value Reference Range Interpretation Comme nts POCT GLU (test code = 2933964232) 152 mg/dL 70-110 H Lab Interpretation (test cod e = 15664-7) Abnormal [facility] WITHOUT [id number] 21:42:08* Test Item Value Reference Range Interpretation Comme nts WBC (test code = 6690-2) 9.09 See_Comment [Automated messa ge] The system which generated this result transmitted reference range: 4.20 - 10.70 10*3/?L. The reference range was not used to interpret this result as normal/abnormal. RBC (test code = 789-8) 3.56 See_Comment L [Automated message] The system which generated this result transmitted reference range: 4.26 - 5.52 10*6/?L. The reference range was not used to interpret this result as normal/abnormal. HGB (test code = 718-7) 10.0 g/dL 12.2-16.4 L HCT (test code = 4544-3) 32.0 % 38.4-49.3 L MCH (test code = 785-6) 28.1 pg 26.1-32.7 MCV (test code = 787-2) 89.9 fL 81.7-95.6 MCHC (test code = 786-4) 31.3 g/dL 31.2-35.0 PLT (test code = 777-3) 128 See_Comment L [Automated message] The system which generated this result transmitted reference range: 150 - 328 10*3/?L. The reference range was not used to interpret this result as normal/abnormal. MPV (test code = 82500-8) 11.3 fL 9.8-13.0 RDW-CV (test code = 788-0) 16.6 % 12.1-15.4 H RDW-SD (test code = 17115-7) 55.1 fL 38.5-51.6 H NRBC x10^3 (test code = 7617359618) See_Comment [Automated messa ge] The system which generated this result transmitted reference range: 10*3/?L. The reference range was not used to interpret this result as normal/abnormal. NRBC/100 WBC (test code = 6165874568) 0.0 See_Comment [Automated messa ge] The system which generated this result transmitted reference range: 0.0 - 10.0 /100 WBCs. The reference range was not used to interpret this result as normal/abnormal. IPF % (test code = 4438039008) 7.1 % 1.2-10.7 Platelet count measured by fluorescence method. Lab Interpretation (test code = 72327-2) [facility] 21:41:33* Test Item Value Reference Range Interpretation Comme nts PHOSPHORUS (test code = 9890720437) 3.5 mg/dL 2.5-5.0 Lab Interpretation (test cod e = 93563-6) [facility] 21:35:12* Test Item Value Reference Range Interpretation Comme nts APTT Patient (test code = 3173-2) 38 See_Comment H [Automated messa ge] The system which generated this result transmitted reference range: 26 - 36 Seconds. The reference range was not used to interpret this result as normal/abnormal. Lab Interpretation (test code = 49544-5) [facility]normal [facility]+COOX+NA+K+GLU+CA2+2023-03-29 21:20:42* Test Item Value Reference Range Interpretation Comme nts PH (test code = 2) 7.40 7.35-7.45 PCO2 (test code = 6280764916) 42 See_Comment [Automated messa ge] The system which generated this result transmitted reference range: 35 - 45 mmHg. The reference range was not used to interpret this result as normal/abnormal. PO2 (test code = 3906981933) 198 See_Comment H [Automated messa ge] The system which generated this result transmitted reference range: 80 - 100 mmHg. The reference range was not used to interpret this result as normal/abnormal. HCO3 (test code = 8619170174) 25 See_Comment [Automated messa ge] The system which generated this result transmitted reference range: 22 - 26 mEq/L. The reference range was not used to interpret this result as normal/abnormal. BE (test code = 6283484120) 0.5 See_Comment [Automated messa ge] The system which generated this result transmitted reference range: -3.0 - 3.0 mEq/L. The reference range was not used to interpret this result as normal/abnormal. THB (test code = 7532957873) 9.5 g/dL 13.5-18.0 L %O2HB (test code = 4587403723) 97.5 % 94.0-99.0 %COHB ART (test code = 2415383518) 1.5 % 0.0-1.5 %METHB ART (test code = 4268389448) 0.4 % 0.4-1.5 VOL%O2 ART (test code = 1748650905) 13.5 % 15.0-23.0 L QUES NA (test code = 9563838733) 135 mmol/L 135-145 K+ (test code = 6377845226) 4.6 mmol/L 3.5-5.0 AC CA IONZ (test code = 7299409652) 4.40 mg/dL 4.50-5.30 L GLUCOSE (test code = 3665541892) 104 mg/dL 70-110 Lab Interpretation (test code = 52909-2) Abnormal [facility] GLUCOSE (AUTOMATED)2023-03-29 21:08:58* Test Item Value Reference Range Interpretation Comme nts POCT GLU (test code = 8270459452) 140 mg/dL 70-110 H Lab Interpretation (test cod e = 36337-6) Abnormal [facility] Packed RBC (in units), 1 Units 2023-03-29 16:13:23* Test Item Value Reference Range Interpretation Comme nts Cross Match Result (test code = 4409) Compatible ISBT Blood Type Code (test code = 782311) 5100 Unit Blood Type (test code = 4410) O Pos Unit Number (test code = 4411) [id number] Blood Expiration Date & Time (test code = 601812) [id number] Status Information (test code = 4412) Issued Product Identification (test code = 4413) Red Blood Cells Product Code (test code = 4414) [id number] Performed at [facility] [place] [address]Toll Free: [phone] No. [id number] [facility] Packed RBC (in units), 2 Units 2023-03-29 13:16:36* Test Item Value Reference Range Interpretation Comme nts Cross Match Result (test code = 4409) Compatible ISBT Blood Type Code (test code = 758593) 5100 Unit Blood Type (test code = 4410) O Pos Unit Number (test code = 4411) [id number] Blood Expiration Date & Time (test code = 037832) [id number] Status Information (test code = 4412) Issued Product Identification (test code = 4413) Red Blood Cells Product Code (test code = 4414) [id number] Performed at [facility] [address] [address]Crxp Free: [phone] No. [id number] [facility] 09:29:07* Test Item Value Reference Range Interpretation Comme nts MAGNESIUM (test code = 1587885902) 1.7 mg/dL 1.7-2.4 Lab Interpretation (test cod e = 14865-9) Normal [facility]28 09:29:07* Test Item Value Reference Range Interpretation Comme nts PHOSPHORUS (test code = 0217351262) 2.6 mg/dL 2.5-5.0 Lab Interpretation (test cod e = 52548-5) Normal [facility] METABOLIC PANEL (NA, K, CL, CO2, GLUCOSE, BUN, CREATININE, CA)2023-03-29 09:29:06* Test Item Value Reference Range Interpretation Comme nts NA (test code = 0486554582) 138 mmol/L 135-145 K (test code = 1277094806) 4.4 mmol/L 3.5-5.0 CL (test code = 1511164694) 101 mmol/L 98-108 CO2 TOTAL (test code = 9002122482) 30 mmol/L 23-31 AGAP (test code = 3800405553) 7 2-16 BUN (test code = 5094658049) 23 mg/dL 7-23 GLUCOSE (test code = 5250244491) 92 mg/dL 70-110 CREATININE (test code = 7664069221) 2.55 mg/dL 0.60-1.25 H CALCIUM (test code = 6593376731) 8.7 mg/dL 8.6-10.6 eGFR (test code = 6277928358) 25.8 mL/min/1.73m2 MIKAYLA (test code = MIKAYLA) Association of [...] or abnormalities in imaging tests). Lab Interpretation (test code = 52296-1) [facility]2023-03-29 09:16:54* Test Item Value Reference Range Interpretation Comme [facility] POCT GLU (test code = 8485977332) 98 mg/dL 70-110 Lab Interpretation (test cod e = 19391-9) Normal [facility] WITH [id number] 09:16:04* Test Item Value Reference Range Interpretation Comme nts WBC (test code = 6690-2) 6.73 See_Comment [Automated [employer]] The system which generated this result transmitted reference range: 4.20 - 10.70 10*3/?L. The reference range was not used to interpret this result as normal/abnormal. RBC (test code = 789-8) 2.81 See_Comment L [Automated messa [employer]] The system which generated this result transmitted reference range: 4.26 - 5.52 10*6/?L. The reference range was not used to interpret this result as normal/abnormal. HGB (test code = 718-7) 7.7 g/dL 12.2-16.4 L HCT (test code = 4544-3) 25.3 % 38.4-49.3 L MCV (test code = 787-2) 90.0 fL 81.7-95.6 MCH (test code = 785-6) 27.4 pg 26.1-32.7 MCHC (test code = 786-4) 30.4 g/dL 31.2-35.0 L RDW-SD (test code = 71097-2) 59.1 fL 38.5-51.6 H RDW-CV (test code = 788-0) 18.3 % 12.1-15.4 H PLT (test code = 777-3) 121 See_Comment L [Automated messa ge] The system which generated this result transmitted reference range: 150 - 328 10*3/?L. The reference range was not used to interpret this result as normal/abnormal. MPV (test code = 14915-7) 11.4 fL 9.8-13.0 NRBC/100 WBC (test code = 7584131905) 0.0 See_Comment [Automated me ssage] The system which generated this result transmitted reference range: 0.0 - 10.0 /100 WBCs. The reference range was not used to interpret this result as normal/abnormal. NRBC x10^3 (test code = 8556553868) See_Comment [Automated messa ge] The system which generated this result transmitted reference range: 10*3/?L. The reference range was not used to interpret this result as normal/abnormal. GRAN MAT (NEUT) % (test code = 770-8) 68.1 % IMM GRAN % (test code = 0948473827) 0.60 % LYMPH % (test code = 736-9) 16.5 % MONO % (test code = 5905-5) 6.8 % EOS % (test code = 713-8) 7.6 % BASO % (test code = 706-2) 0.4 % GRAN MAT x10^3(ANC) (test code = 8852234612) 4.58 10*3/uL 1.99-6.95 IMM GRAN x10^3 (test code = 6659941125) 0.04 10*3/uL 0.00-0.06 LYMPH x10^3 (test code = 731-0) 1.11 10*3/uL 1.09-3.23 MONO x10^3 (test code = 742-7) 0.46 10*3/uL 0.36-1.02 EOS x10^3 (test code = 711-2) 0.51 10*3/uL 0.06-0.53 BASO x10^3 (test code = 704-7) 0.03 10*3/uL 0.01-0.09 Lab Interpretation (test code = 04935-4) Abnormal [facility] GLUCOSE (AUTOMATED)2023-03-29 04:38:01* Test Item Value Reference Range Interpretation Comme nts POCT GLU (test code = 1937853350) 161 mg/dL 70-110 H Lab Interpretation (test cod e = 14635-9) Abnormal [facility] GLUCOSE (AUTOMATED)2023-03-28 23:26:34* Test Item Value Reference Range Interpretation Comme nts POCT GLU (test code = 3785135713) 168 mg/dL 70-110 H Lab Interpretation (test cod e = 27502-0) Abnormal [facility] GLUCOSE (AUTOMATED)2023-03-28 18:41:12* Test Item Value Reference Range Interpretation Comme nts POCT GLU (test code = 1573536155) 136 mg/dL 70-110 H Lab Interpretation (test cod e = 58063-8) Abnormal [facility] GLUCOSE (AUTOMATED)2023-03-28 13:51:58* Test Item Value Reference Range Interpretation Comme nts POCT GLU (test code = 7138161587) 117 mg/dL 70-110 H Lab Interpretation (test cod e = 54788-5) Abnormal [facility] METABOLIC PANEL (NA, K, CL, CO2, GLUCOSE, BUN, CREATININE, CA)2023-03-28 11:56:34* Test Item Value Reference Range Interpretation Comme nts NA (test code = 8586186253) 135 mmol/L 135-145 K (test code = 8924216329) 4.0 mmol/L 3.5-5.0 CL (test code = 5315687904) 99 mmol/L 98-108 CO2 TOTAL (test code = 2236240380) 28 mmol/L 23-31 AGAP (test code = 8683810306) 8 2-16 BUN (test code = 9412179520) 38 mg/dL 7-23 H GLUCOSE (test code = 6286447569) 47 mg/dL 70-110 LL CREATININE (test code = 3543002738) 3.15 mg/dL 0.60-1.25 H CALCIUM (test code = 6442053712) 8.2 mg/dL 8.6-10.6 L eGFR (test code = 7109039834) 20.2 mL/min/1.73m2 MIKAYLA (test code = MIKAYLA) Association of [...] or abnormalities in imaging tests). Lab Interpretation (test code = 66735-0) [facility] 11:29:46* Test Item Value Reference Range Interpretation Comme nts MAGNESIUM (test code = 1778160253) 1.4 mg/dL 1.7-2.4 L Lab Interpretation (test cod e = 09284-3) [facility]2023-03-28 11:28:05* Test Item Value Reference Range Interpretation Comme nts POCT GLU (test code = 7976434668) 85 mg/dL 70-110 Lab Interpretation (test cod e = 16806-5) Normal [facility] WITH VPGR1423-09-86 11:27:04* Test Item Value Reference Range Interpretation Comme nts WBC (test code = 6690-2) 8.16 See_Comment [Automated [employer]] The system which generated this result transmitted reference range: 4.20 - 10.70 10*3/?L. The reference range was not used to interpret this result as normal/abnormal. RBC (test code = 789-8) 2.90 See_Comment L [Automated [employer] ge] The system which generated this result transmitted reference range: 4.26 - 5.52 10*6/?L. The reference range was not used to interpret this result as normal/abnormal. HGB (test code = 718-7) 8.0 g/dL 12.2-16.4 L HCT (test code = 4544-3) 25.9 % 38.4-49.3 L MCV (test code = 787-2) 89.3 fL 81.7-95.6 MCH (test code = 785-6) 27.6 pg 26.1-32.7 MCHC (test code = 786-4) 30.9 g/dL 31.2-35.0 L RDW-SD (test code = 71666-4) 60.1 fL 38.5-51.6 H RDW-CV (test code = 788-0) 18.3 % 12.1-15.4 H PLT (test code = 777-3) 136 See_Comment L [Automated [employer] ge] The system which generated this result transmitted reference range: 150 - 328 10*3/?L. The reference range was not used to interpret this result as normal/abnormal. MPV (test code = 59066-6) 13.2 fL 9.8-13.0 H IPF % (test code = 2956919629) 7.9 % 1.2-10.7 Platelet count measured by fluorescence method. NRBC/100 WBC (test code = 6377807700) 0.0 See_Comment [Automated [employer] ssage] The system which generated this result transmitted reference range: 0.0 - 10.0 /100 WBCs. The reference range was not used to interpret this result as normal/abnormal. NRBC x10^3 (test code = 6350237821) See_Comment [Automated [employer] ge] The system which generated this result transmitted reference range: 10*3/?L. The reference range was not used to interpret this result as normal/abnormal. GRAN MAT (NEUT) % (test code = 770-8) 66.4 % IMM GRAN % (test code = 0860524059) 0.40 % LYMPH % (test code = 736-9) 17.0 % MONO % (test code = 5905-5) 8.5 % EOS % (test code = 713-8) 7.1 % BASO % (test code = 706-2) 0.6 % GRAN MAT x10^3(ANC) (test code = 0298223299) 5.42 10*3/uL 1.99-6.95 IMM GRAN x10^3 (test code = 6383164194) 0.03 10*3/uL 0.00-0.06 LYMPH x10^3 (test code = 731-0) 1.39 10*3/uL 1.09-3.23 MONO x10^3 (test code = 742-7) 0.69 10*3/uL 0.36-1.02 EOS x10^3 (test code = 711-2) 0.58 10*3/uL 0.06-0.53 H BASO x10^3 (test code = 704-7) 0.05 10*3/uL 0.01-0.09 Lab Interpretation (test code = 43730-1) Abnormal [facility] GLUCOSE (AUTOMATED)2023-03-28 10:57:04* Test Item Value Reference Range Interpretation Comme nts POCT GLU (test code = 6350931676) 64 mg/dL 70-110 L Lab Interpretation (test cod e = 15769-0) Abnormal [facility] GLUCOSE (AUTOMATED)2023-03-28 10:41:36* Test Item Value Reference Range Interpretation Comme nts POCT GLU (test code = 9243457881) 53 mg/dL 70-110 L Lab Interpretation (test cod e = 45825-5) [facility] ONCE Jrtkqmi8703-04-97 10:41:00* Test Item Value Reference Range Interpretation Comme nts ABO & RH (test code = 20) O POSITIVE IAT (test code = 1185) Negative [facility] GLUCOSE (AUTOMATED)2023-03-28 04:54:12* Test Item Value Reference Range Interpretation Comme nts POCT GLU (test code = 4682484892) 94 mg/dL 70-110 Lab Interpretation (test cod e = 96573-1) Normal [facility] GLUCOSE (AUTOMATED)2023-03-28 01:51:03* Test Item Value Reference Range Interpretation Comme nts POCT GLU (test code = 8758267350) 127 mg/dL 70-110 H Lab Interpretation (test cod e = 43777-3) Abnormal [facility] GLUCOSE (AUTOMATED)2023-03-27 23:15:54* Test Item Value Reference Range Interpretation Comme nts POCT GLU (test code = 4128126010) 131 mg/dL 70-110 H Lab Interpretation (test cod e = 02078-7) Abnormal [facility] GLUCOSE (AUTOMATED)2023-03-27 17:11:25* Test Item Value Reference Range Interpretation Comme nts POCT GLU (test code = [id number]) 71 mg/dL 70-110 Lab Interpretation (test cod e = 08564-6) Normal [facility] GLUCOSE (AUTOMATED)2023-03-27 14:46:55* Test Item Value Reference Range Interpretation Comme nts POCT GLU (test code = [id number]) 114 mg/dL 70-110 H Lab Interpretation (test cod e = 79070-9) Abnormal [facility] GLUCOSE (AUTOMATED)2023-03-27 05:10:03* Test Item Value Reference Range Interpretation Comme nts POCT GLU (test code = [id number]) 87 mg/dL 70-110 Lab Interpretation (test cod e = 74735-9) Normal [facility] GLUCOSE (AUTOMATED)2023-03-27 02:02:29* Test Item Value Reference Range Interpretation Comme nts POCT GLU (test code = [id number]) 117 mg/dL 70-110 H Lab Interpretation (test cod e = 66531-4) Abnormal [facility] GLUCOSE (AUTOMATED)2023-03-26 22:36:32* Test Item Value Reference Range Interpretation Comme nts POCT GLU (test code = 0446066335) 133 mg/dL 70-110 H Lab Interpretation (test cod e = 87351-9) Abnormal [facility] GLUCOSE (AUTOMATED)2023-03-26 17:03:24* Test Item Value Reference Range Interpretation Comme nts POCT GLU (test code = 5654086508) 105 mg/dL 70-110 Lab Interpretation (test cod e = 10992-5) Normal [facility] GLUCOSE (AUTOMATED)2023-03-26 17:03:24* Test Item Value Reference Range Interpretation Comme nts POCT GLU (test code = 2693439693) 105 mg/dL 70-110 Lab Interpretation (test cod e = 70645-6) Normal [facility] GLUCOSE (AUTOMATED)2023-03-26 12:57:12* Test Item Value Reference Range Interpretation Comme nts POCT GLU (test code = 4565997795) 115 mg/dL 70-110 H Lab Interpretation (test cod e = 79241-1) Abnormal [facility] GLUCOSE (AUTOMATED)2023-03-26 12:57:12* Test Item Value Reference Range Interpretation Comme nts POCT GLU (test code = 7588955775) 115 mg/dL 70-110 H Lab Interpretation (test cod e = 80625-7) [facility]* Test Item Value Reference Range Interpretation Comme nts PHOSPHORUS (test code = 3264357039) 4.9 mg/dL 2.5-5.0 Lab Interpretation (test cod e = 68831-1) [facility] 11:38:40* Test Item Value Reference Range Interpretation Comme nts PHOSPHORUS (test code = 6307739247) 4.9 mg/dL 2.5-5.0 Lab Interpretation (test cod e = 04175-1) Normal [facility] METABOLIC PANEL (NA, K, CL, CO2, GLUCOSE, BUN, CREATININE, CA)2023-03-26 11:38:39* Test Item Value Reference Range Interpretation Comme nts NA (test code = 4963563477) 133 mmol/L 135-145 L K (test code = 2325582435) 4.2 mmol/L 3.5-5.0 CL (test code = 7760049944) 97 mmol/L 98-108 L CO2 TOTAL (test code = 4263500940) 27 mmol/L 23-31 AGAP (test code = 5569883327) 9 2-16 BUN (test code = 9142427001) 58 mg/dL 7-23 H GLUCOSE (test code = 0691276643) 127 mg/dL 70-110 H CREATININE (test code = 5448026592) 4.19 mg/dL 0.60-1.25 H CALCIUM (test code = 6451565700) 8.4 mg/dL 8.6-10.6 L eGFR (test code = 2081732688) 14.5 mL/min/1.73m2 MIKAYLA (test code = MIKAYLA) Association of [...] or abnormalities in imaging tests). Lab Interpretation (test code = 58095-4) [facility]:39* Test Item Value Reference Range Interpretation Comme nts MAGNESIUM (test code = 4228464603) 1.4 mg/dL 1.7-2.4 L Lab Interpretation (test cod e = 56631-3) [facility] (NA, K, CL, CO2, GLUCOSE, BUN, CREATININE, CA)2023-03-26 11:38:39* Test Item Value Reference Range Interpretation Comme nts NA (test code = 1392666992) 133 mmol/L 135-145 L K (test code = 3366190017) 4.2 mmol/L 3.5-5.0 CL (test code = 0807922437) 97 mmol/L 98-108 L CO2 TOTAL (test code = 6153229174) 27 mmol/L 23-31 AGAP (test code = 7543742057) 9 2-16 BUN (test code = 4184052833) 58 mg/dL 7-23 H GLUCOSE (test code = 5624067985) 127 mg/dL 70-110 H CREATININE (test code = 7237921320) 4.19 mg/dL 0.60-1.25 H CALCIUM (test code = 6862776628) 8.4 mg/dL 8.6-10.6 L eGFR (test code = 3222603197) 14.5 mL/min/1.73m2 MIKAYLA (test code = MIKAYLA) Association of [...] or abnormalities in imaging tests). Lab Interpretation (test code = 60357-3) [facility] 11:38:39* Test Item Value Reference Range Interpretation Comme nts MAGNESIUM (test code = 2267485449) 1.4 mg/dL 1.7-2.4 L Lab Interpretation (test cod e = 04005-7) Abnormal [facility] WITH [id number] 10:15:25* Test Item Value Reference Range Interpretation Comme nts WBC (test code = 6690-2) 7.61 See_Comment [Automated messa ge] The system which generated this result transmitted reference range: 4.20 - 10.70 10*3/?L. The reference range was not used to interpret this result as normal/abnormal. RBC (test code = 789-8) 2.81 See_Comment L [Automated messa ge] The system which generated this result transmitted reference range: 4.26 - 5.52 10*6/?L. The reference range was not used to interpret this result as normal/abnormal. HGB (test code = 718-7) 7.9 g/dL 12.2-16.4 L HCT (test code = 4544-3) 24.8 % 38.4-49.3 L MCV (test code = 787-2) 88.3 fL 81.7-95.6 MCH (test code = 785-6) 28.1 pg 26.1-32.7 MCHC (test code = 786-4) 31.9 g/dL 31.2-35.0 RDW-SD (test code = 14264-7) 58.8 fL 38.5-51.6 H RDW-CV (test code = 788-0) 18.4 % 12.1-15.4 H PLT (test code = 777-3) 186 See_Comment [Automated messa ge] The system which generated this result transmitted reference range: 150 - 328 10*3/?L. The reference range was not used to interpret this result as normal/abnormal. MPV (test code = 34567-2) 12.9 fL 9.8-13.0 NRBC/100 WBC (test code = 0840933911) 0.0 See_Comment [Automated me ssage] The system which generated this result transmitted reference range: 0.0 - 10.0 /100 WBCs. The reference range was not used to interpret this result as normal/abnormal. NRBC x10^3 (test code = 4908936232) See_Comment [Automated messa ge] The system which generated this result transmitted reference range: 10*3/?L. The reference range was not used to interpret this result as normal/abnormal. GRAN MAT (NEUT) % (test code = 770-8) 75.1 % IMM GRAN % (test code = 9536952723) 0.30 % LYMPH % (test code = 736-9) 11.2 % MONO % (test code = 5905-5) 7.1 % EOS % (test code = 713-8) 5.9 % BASO % (test code = 706-2) 0.4 % GRAN MAT x10^3(ANC) (test code = 6493248649) 5.72 10*3/uL 1.99-6.95 IMM GRAN x10^3 (test code = 5621827009) 0.00-0.06 LYMPH x10^3 (test code = 731-0) 0.85 10*3/uL 1.09-3.23 L MONO x10^3 (test code = 742-7) 0.54 10*3/uL 0.36-1.02 EOS x10^3 (test code = 711-2) 0.45 10*3/uL 0.06-0.53 BASO x10^3 (test code = 704-7) 0.03 10*3/uL 0.01-0.09 Lab Interpretation (test code = 97062-7) Abnormal [facility] WITH [id number] 10:15:25* Test Item Value Reference Range Interpretation Comme nts WBC (test code = 6690-2) 7.61 See_Comment [Automated messa ge] The system which generated this result transmitted reference range: 4.20 - 10.70 10*3/?L. The reference range was not used to interpret this result as normal/abnormal. RBC (test code = 789-8) 2.81 See_Comment L [Automated messa ge] The system which generated this result transmitted reference range: 4.26 - 5.52 10*6/?L. The reference range was not used to interpret this result as normal/abnormal. HGB (test code = 718-7) 7.9 g/dL 12.2-16.4 L HCT (test code = 4544-3) 24.8 % 38.4-49.3 L MCV (test code = 787-2) 88.3 fL 81.7-95.6 MCH (test code = 785-6) 28.1 pg 26.1-32.7 MCHC (test code = 786-4) 31.9 g/dL 31.2-35.0 RDW-SD (test code = 14441-8) 58.8 fL 38.5-51.6 H RDW-CV (test code = 788-0) 18.4 % 12.1-15.4 H PLT (test code = 777-3) 186 See_Comment [Automated [employer]] The system which generated this result transmitted reference range: 150 - 328 10*3/?L. The reference range was not used to interpret this result as normal/abnormal. MPV (test code = 28218-7) 12.9 fL 9.8-13.0 NRBC/100 WBC (test code = 1193830164) 0.0 See_Comment [Automated [employer] ssage] The system which generated this result transmitted reference range: 0.0 - 10.0 /100 WBCs. The reference range was not used to interpret this result as normal/abnormal. NRBC x10^3 (test code = 5915522982) See_Comment [Automated [employer]] The system which generated this result transmitted reference range: 10*3/?L. The reference range was not used to interpret this result as normal/abnormal. GRAN MAT (NEUT) % (test code = 770-8) 75.1 % IMM GRAN % (test code = 4903746374) 0.30 % LYMPH % (test code = 736-9) 11.2 % MONO % (test code = 5905-5) 7.1 % EOS % (test code = 713-8) 5.9 % BASO % (test code = 706-2) 0.4 % GRAN MAT x10^3(ANC) (test code = 3249258175) 5.72 10*3/uL 1.99-6.95 IMM GRAN x10^3 (test code = 8662618860) 0.00-0.06 LYMPH x10^3 (test code = 731-0) 0.85 10*3/uL 1.09-3.23 L MONO x10^3 (test code = 742-7) 0.54 10*3/uL 0.36-1.02 EOS x10^3 (test code = 711-2) 0.45 10*3/uL 0.06-0.53 BASO x10^3 (test code = 704-7) 0.03 10*3/uL 0.01-0.09 Lab Interpretation (test code = 40270-0) Abnormal [facility] GLUCOSE (AUTOMATED)2023-03-26 09:47:10* Test Item Value Reference Range Interpretation Comme nts POCT GLU (test code = 9362549278) 136 mg/dL 70-110 H Lab Interpretation (test cod e = 19821-3) Abnormal [facility] GLUCOSE (AUTOMATED)2023-03-26 09:47:10* Test Item Value Reference Range Interpretation Comme nts POCT GLU (test code = 2217263006) 136 mg/dL 70-110 H Lab Interpretation (test cod e = 59144-3) Abnormal [facility] GLUCOSE (AUTOMATED)2023-03-26 01:03:34* Test Item Value Reference Range Interpretation Comme nts POCT GLU (test code = 1362234953) 101 mg/dL 70-110 Lab Interpretation (test cod e = 34484-2) Normal [facility] GLUCOSE (AUTOMATED)2023-03-26 01:03:34* Test Item Value Reference Range Interpretation Comme nts POCT GLU (test code = 5579847137) 101 mg/dL 70-110 Lab Interpretation (test cod e = 86368-5) Normal [facility] GLUCOSE (AUTOMATED)2023-03-25 21:59:25* Test Item Value Reference Range Interpretation Comme nts POCT GLU (test code = 9162714640) 101 mg/dL 70-110 Lab Interpretation (test cod e = 35097-6) Normal [facility] GLUCOSE (AUTOMATED)2023-03-25 21:59:25* Test Item Value Reference Range Interpretation Comme nts POCT GLU (test code = 6170213312) 101 mg/dL 70-110 Lab Interpretation (test cod e = 30186-5) Normal [facility] GLUCOSE (AUTOMATED)2023-03-25 20:47:38* Test Item Value Reference Range Interpretation Comme nts POCT GLU (test code = 1073025892) 68 mg/dL 70-110 L Lab Interpretation (test cod e = 72423-7) Abnormal [facility] GLUCOSE (AUTOMATED)2023-03-25 20:47:38* Test Item Value Reference Range Interpretation Comme nts POCT GLU (test code = 9108072367) 68 mg/dL 70-110 L Lab Interpretation (test cod e = 34911-8) Abnormal [facility] GLUCOSE (AUTOMATED)2023-03-25 17:04:54* Test Item Value Reference Range Interpretation Comme nts POCT GLU (test code = 9873656466) 70 mg/dL 70-110 Lab Interpretation (test cod e = 11789-0) Normal [facility] GLUCOSE (AUTOMATED)2023-03-25 17:04:54* Test Item Value Reference Range Interpretation Comme nts POCT GLU (test code = 4676121359) 70 mg/dL 70-110 Lab Interpretation (test cod e = 40623-2) Normal [facility] GLUCOSE (AUTOMATED)2023-03-25 16:26:22* Test Item Value Reference Range Interpretation Comme nts POCT GLU (test code = 6968940865) 64 mg/dL 70-110 L Notified Provide r Lab Interpretation (test code = 99628-8) Abnormal [facility] GLUCOSE (AUTOMATED)2023-03-25 16:26:22* Test Item Value Reference Range Interpretation Comme nts POCT GLU (test code = 5818624387) 64 mg/dL 70-110 L Notified Provide r Lab Interpretation (test code = 43185-9) [facility]* Test Item Value Reference Range Interpretation Comme nts MAGNESIUM (test code = 5662751045) 1.5 mg/dL 1.7-2.4 L Lab Interpretation (test cod e = 61366-9) [facility] 13:36:16* Test Item Value Reference Range Interpretation Comme nts MAGNESIUM (test code = 2222754081) 1.5 mg/dL 1.7-2.4 L Lab Interpretation (test cod e = 71953-6) [facility] (NA, K, CL, CO2, GLUCOSE, BUN, CREATININE, CA)2023-03-25 11:00:29* Test Item Value Reference Range Interpretation Comme nts NA (test code = 7422980530) 135 mmol/L 135-145 K (test code = 1161676322) 4.1 mmol/L 3.5-5.0 CL (test code = 5063943101) 97 mmol/L 98-108 L CO2 TOTAL (test code = 8977203333) 27 mmol/L 23-31 AGAP (test code = 3011997597) 11 2-16 BUN (test code = 6496406905) 52 mg/dL 7-23 H GLUCOSE (test code = 3942019245) 89 mg/dL 70-110 CREATININE (test code = 6202790360) 4.31 mg/dL 0.60-1.25 H CALCIUM (test code = 7000108178) 8.0 mg/dL 8.6-10.6 L eGFR (test code = 5996793287) 14.1 mL/min/1.73m2 MIKAYLA (test code = MIKAYLA) Association of [...] or abnormalities in imaging tests). Lab Interpretation (test code = 98780-6) Abnormal [facility] METABOLIC PANEL (NA, K, CL, CO2, GLUCOSE, BUN, CREATININE, CA)2023-03-25 11:00:29* Test Item Value Reference Range Interpretation Comme nts NA (test code = 6932081618) 135 mmol/L 135-145 K (test code = 4644708068) 4.1 mmol/L 3.5-5.0 CL (test code = 6617624399) 97 mmol/L 98-108 L CO2 TOTAL (test code = 3846116960) 27 mmol/L 23-31 AGAP (test code = 7648207691) 11 2-16 BUN (test code = 6079489937) 52 mg/dL 7-23 H GLUCOSE (test code = 5005571510) 89 mg/dL 70-110 CREATININE (test code = 9783585155) 4.31 mg/dL 0.60-1.25 H CALCIUM (test code = 7698313094) 8.0 mg/dL 8.6-10.6 L eGFR (test code = 0654311400) 14.1 mL/min/1.73m2 MIKAYLA (test code = MIKAYLA) Association of [...] or abnormalities in imaging tests). Lab Interpretation (test code = 54098-4) Abnormal [facility] WITH [id number] 10:50:28* Test Item Value Reference Range Interpretation Comme nts WBC (test code = 6690-2) 8.74 See_Comment [Automated [employer]] The system which generated this result transmitted reference range: 4.20 - 10.70 10*3/?L. The reference range was not used to interpret this result as normal/abnormal. RBC (test code = 789-8) 2.63 See_Comment L [Automated [employer]] The system which generated this result transmitted reference range: 4.26 - 5.52 10*6/?L. The reference range was not used to interpret this result as normal/abnormal. HGB (test code = 718-7) 7.3 g/dL 12.2-16.4 L HCT (test code = 4544-3) 23.5 % 38.4-49.3 L MCV (test code = 787-2) 89.4 fL 81.7-95.6 MCH (test code = 785-6) 27.8 pg 26.1-32.7 MCHC (test code = 786-4) 31.1 g/dL 31.2-35.0 L RDW-SD (test code = 01291-4) 60.1 fL 38.5-51.6 H RDW-CV (test code = 788-0) 18.4 % 12.1-15.4 H PLT (test code = 777-3) 147 See_Comment L [Automated messa ge] The system which generated this result transmitted reference range: 150 - 328 10*3/?L. The reference range was not used to interpret this result as normal/abnormal. MPV (test code = 19736-7) 11.4 fL 9.8-13.0 NRBC/100 WBC (test code = 7695134995) 0.0 See_Comment [Automated [employer] ssage] The system which generated this result transmitted reference range: 0.0 - 10.0 /100 WBCs. The reference range was not used to interpret this result as normal/abnormal. NRBC x10^3 (test code = 5704730872) See_Comment [Automated messa ge] The system which generated this result transmitted reference range: 10*3/?L. The reference range was not used to interpret this result as normal/abnormal. GRAN MAT (NEUT) % (test code = 770-8) 74.7 % IMM GRAN % (test code = 1976909123) 0.50 % LYMPH % (test code = 736-9) 12.0 % MONO % (test code = 5905-5) 6.8 % EOS % (test code = 713-8) 5.5 % BASO % (test code = 706-2) 0.5 % GRAN MAT x10^3(ANC) (test code = 7870653646) 6.54 10*3/uL 1.99-6.95 IMM GRAN x10^3 (test code = 1349881823) 0.04 10*3/uL 0.00-0.06 LYMPH x10^3 (test code = 731-0) 1.05 10*3/uL 1.09-3.23 L MONO x10^3 (test code = 742-7) 0.59 10*3/uL 0.36-1.02 EOS x10^3 (test code = 711-2) 0.48 10*3/uL 0.06-0.53 BASO x10^3 (test code = 704-7) 0.04 10*3/uL 0.01-0.09 Lab Interpretation (test code = 61956-7) Abnormal [facility] WITH [id number] 10:50:28* Test Item Value Reference Range Interpretation Comme nts WBC (test code = 6690-2) 8.74 See_Comment [Automated messa ge] The system which generated this result transmitted reference range: 4.20 - 10.70 10*3/?L. The reference range was not used to interpret this result as normal/abnormal. RBC (test code = 789-8) 2.63 See_Comment L [Automated messa ge] The system which generated this result transmitted reference range: 4.26 - 5.52 10*6/?L. The reference range was not used to interpret this result as normal/abnormal. HGB (test code = 718-7) 7.3 g/dL 12.2-16.4 L HCT (test code = 4544-3) 23.5 % 38.4-49.3 L MCV (test code = 787-2) 89.4 fL 81.7-95.6 MCH (test code = 785-6) 27.8 pg 26.1-32.7 MCHC (test code = 786-4) 31.1 g/dL 31.2-35.0 L RDW-SD (test code = 54618-8) 60.1 fL 38.5-51.6 H RDW-CV (test code = 788-0) 18.4 % 12.1-15.4 H PLT (test code = 777-3) 147 See_Comment L [Automated messa ge] The system which generated this result transmitted reference range: 150 - 328 10*3/?L. The reference range was not used to interpret this result as normal/abnormal. MPV (test code = 77826-0) 11.4 fL 9.8-13.0 NRBC/100 WBC (test code = 7435832059) 0.0 See_Comment [Automated me ssage] The system which generated this result transmitted reference range: 0.0 - 10.0 /100 WBCs. The reference range was not used to interpret this result as normal/abnormal. NRBC x10^3 (test code = 8811266906) See_Comment [Automated messa ge] The system which generated this result transmitted reference range: 10*3/?L. The reference range was not used to interpret this result as normal/abnormal. GRAN MAT (NEUT) % (test code = 770-8) 74.7 % IMM GRAN % (test code = 3257123924) 0.50 % LYMPH % (test code = 736-9) 12.0 % MONO % (test code = 5905-5) 6.8 % EOS % (test code = 713-8) 5.5 % BASO % (test code = 706-2) 0.5 % GRAN MAT x10^3(ANC) (test code = 9676286367) 6.54 10*3/uL 1.99-6.95 IMM GRAN x10^3 (test code = 6265905501) 0.04 10*3/uL 0.00-0.06 LYMPH x10^3 (test code = 731-0) 1.05 10*3/uL 1.09-3.23 L MONO x10^3 (test code = 742-7) 0.59 10*3/uL 0.36-1.02 EOS x10^3 (test code = 711-2) 0.48 10*3/uL 0.06-0.53 BASO x10^3 (test code = 704-7) 0.04 10*3/uL 0.01-0.09 Lab Interpretation (test code = 15553-7) Abnormal [facility] GLUCOSE (AUTOMATED)2023-03-25 10:44:44* Test Item Value Reference Range Interpretation Comme nts POCT GLU (test code = 8231014201) 102 mg/dL 70-110 Lab Interpretation (test cod e = 94890-1) Normal [facility] GLUCOSE (AUTOMATED)2023-03-25 10:44:44* Test Item Value Reference Range Interpretation Comme nts POCT GLU (test code = 9622349367) 102 mg/dL 70-110 Lab Interpretation (test cod e = 40085-7) Normal [facility] GLUCOSE (AUTOMATED)2023-03-25 05:25:51* Test Item Value Reference Range Interpretation Comme nts POCT GLU (test code = 6183160695) 152 mg/dL 70-110 H Lab Interpretation (test cod e = 40560-8) Abnormal [facility] GLUCOSE (AUTOMATED)2023-03-25 05:25:51* Test Item Value Reference Range Interpretation Comme nts POCT GLU (test code = 6259074156) 152 mg/dL 70-110 H Lab Interpretation (test cod e = 76121-1) Abnormal [facility] GLUCOSE (AUTOMATED)2023-03-25 00:41:13* Test Item Value Reference Range Interpretation Comme nts POCT GLU (test code = 0788888578) 124 mg/dL 70-110 H Lab Interpretation (test cod e = 01576-1) Abnormal [facility] GLUCOSE (AUTOMATED)2023-03-25 00:41:13* Test Item Value Reference Range Interpretation Comme nts POCT GLU (test code = 5799670321) 124 mg/dL 70-110 H Lab Interpretation (test cod e = 49476-0) Abnormal [facility] GLUCOSE (AUTOMATED)2023-03-24 21:46:06* Test Item Value Reference Range Interpretation Comme nts POCT GLU (test code = 6315998303) 115 mg/dL 70-110 H Lab Interpretation (test cod e = 72081-6) Abnormal [facility] GLUCOSE (AUTOMATED)2023-03-24 21:46:06* Test Item Value Reference Range Interpretation Comme nts POCT GLU (test code = 2328274102) 115 mg/dL 70-110 H Lab Interpretation (test cod e = 96165-9) Abnormal [facility] GLUCOSE (AUTOMATED)2023-03-24 16:49:48* Test Item Value Reference Range Interpretation Comme nts POCT GLU (test code = 8112358327) 102 mg/dL 70-110 Lab Interpretation (test cod e = 66517-1) Normal [facility] GLUCOSE (AUTOMATED)2023-03-24 16:49:48* Test Item Value Reference Range Interpretation Comme nts POCT GLU (test code = 0381123554) 102 mg/dL 70-110 Lab Interpretation (test cod e = 53434-4) Normal [facility] GLUCOSE (AUTOMATED)2023-03-24 11:49:15* Test Item Value Reference Range Interpretation Comme nts POCT GLU (test code = 7182210102) 85 mg/dL 70-110 Lab Interpretation (test cod e = 78946-6) Normal [facility] GLUCOSE (AUTOMATED)2023-03-24 11:49:15* Test Item Value Reference Range Interpretation Comme nts POCT GLU (test code = 6732698118) 85 mg/dL 70-110 Lab Interpretation (test cod e = 71050-1) Normal [facility] METABOLIC PANEL (NA, K, CL, CO2, GLUCOSE, BUN, CREATININE, CA)2023-03-24 11:14:38* Test Item Value Reference Range Interpretation Comme [facility] NA (test code = 1333634599) 134 mmol/L 135-145 L K (test code = 1043741930) 4.0 mmol/L 3.5-5.0 CL (test code = 6699428042) 98 mmol/L 98-108 CO2 TOTAL (test code = 4926345761) 26 mmol/L 23-31 AGAP (test code = 9692532960) 10 2-16 BUN (test code = 3256052481) 42 mg/dL 7-23 H GLUCOSE (test code = 4028088367) 59 mg/dL 70-110 L CREATININE (test code = 0321897322) 3.75 mg/dL 0.60-1.25 H CALCIUM (test code = 3854107420) 8.4 mg/dL 8.6-10.6 L eGFR (test code = 4234759219) 16.5 mL/min/1.73m2 MIKAYLA (test code = MIKAYLA) Association of [...] or abnormalities in imaging tests). Lab Interpretation (test code = 61994-3) [facility]:14:38* Test Item Value Reference Range Interpretation Comme nts MAGNESIUM (test code = 9949083023) 1.6 mg/dL 1.7-2.4 L Lab Interpretation (test cod e = 63062-4) [facility] (NA, K, CL, CO2, GLUCOSE, BUN, CREATININE, CA)2023-03-24 11:14:38* Test Item Value Reference Range Interpretation Comme nts NA (test code = 4345352606) 134 mmol/L 135-145 L K (test code = 0644631614) 4.0 mmol/L 3.5-5.0 CL (test code = 4748376162) 98 mmol/L 98-108 CO2 TOTAL (test code = 3437494445) 26 mmol/L 23-31 AGAP (test code = 9859596973) 10 2-16 BUN (test code = 1686571832) 42 mg/dL 7-23 H GLUCOSE (test code = 3343754681) 59 mg/dL 70-110 L CREATININE (test code = 2071773588) 3.75 mg/dL 0.60-1.25 H CALCIUM (test code = 3475456598) 8.4 mg/dL 8.6-10.6 L eGFR (test code = 5102028038) 16.5 mL/min/1.73m2 MIKAYLA (test code = MIKAYLA) Association of [...] or abnormalities in imaging tests). Lab Interpretation (test code = 06286-9) [facility] 11:14:38* Test Item Value Reference Range Interpretation Comme nts MAGNESIUM (test code = 0609120908) 1.6 mg/dL 1.7-2.4 L Lab Interpretation (test cod e = 05819-3) Abnormal [facility] GLUCOSE (AUTOMATED)2023-03-24 11:09:34* Test Item Value Reference Range Interpretation Comme nts POCT GLU (test code = 6130694385) 69 mg/dL 70-110 L Lab Interpretation (test cod e = 58459-1) Abnormal [facility] GLUCOSE (AUTOMATED)2023-03-24 11:09:34* Test Item Value Reference Range Interpretation Comme nts POCT GLU (test code = 4591809622) 69 mg/dL 70-110 L Lab Interpretation (test cod e = 44590-1) Abnormal [facility] WITH [id number] 10:46:55* Test Item Value Reference Range Interpretation Comme nts WBC (test code = 6690-2) 9.09 See_Comment [Automated messa ge] The system which generated this result transmitted reference range: 4.20 - 10.70 10*3/?L. The reference range was not used to interpret this result as normal/abnormal. RBC (test code = 789-8) 2.59 See_Comment L [Automated messa ge] The system which generated this result transmitted reference range: 4.26 - 5.52 10*6/?L. The reference range was not used to interpret this result as normal/abnormal. HGB (test code = 718-7) 7.1 g/dL 12.2-16.4 L HCT (test code = 4544-3) 23.2 % 38.4-49.3 L MCV (test code = 787-2) 89.6 fL 81.7-95.6 MCH (test code = 785-6) 27.4 pg 26.1-32.7 MCHC (test code = 786-4) 30.6 g/dL 31.2-35.0 L RDW-SD (test code = 27554-5) 59.3 fL 38.5-51.6 H RDW-CV (test code = 788-0) 18.3 % 12.1-15.4 H PLT (test code = 777-3) 129 See_Comment L [Automated messa ge] The system which generated this result transmitted reference range: 150 - 328 10*3/?L. The reference range was not used to interpret this result as normal/abnormal. MPV (test code = 15615-1) 11.8 fL 9.8-13.0 NRBC/100 WBC (test code = 5400706692) 0.0 See_Comment [Automated [place] ssage] The system which generated this result transmitted reference range: 0.0 - 10.0 /100 WBCs. The reference range was not used to interpret this result as normal/abnormal. NRBC x10^3 (test code = 0312882566) See_Comment [Automated messa ge] The system which generated this result transmitted reference range: 10*3/?L. The reference range was not used to interpret this result as normal/abnormal. GRAN MAT (NEUT) % (test code = 770-8) 75.8 % IMM GRAN % (test code = 7111728473) 0.60 % LYMPH % (test code = 736-9) 11.2 % MONO % (test code = 5905-5) 6.9 % EOS % (test code = 713-8) 5.2 % BASO % (test code = 706-2) 0.3 % GRAN MAT x10^3(ANC) (test code = 5278935831) 6.89 10*3/uL 1.99-6.95 IMM GRAN x10^3 (test code = 6898021227) 0.05 10*3/uL 0.00-0.06 LYMPH x10^3 (test code = 731-0) 1.02 10*3/uL 1.09-3.23 L MONO x10^3 (test code = 742-7) 0.63 10*3/uL 0.36-1.02 EOS x10^3 (test code = 711-2) 0.47 10*3/uL 0.06-0.53 BASO x10^3 (test code = 704-7) 0.03 10*3/uL 0.01-0.09 Lab Interpretation (test code = 01575-0) Abnormal [facility] WITH [id number] 10:46:55* Test Item Value Reference Range Interpretation Comme nts WBC (test code = 6690-2) 9.09 See_Comment [Automated messa ge] The system which generated this result transmitted reference range: 4.20 - 10.70 10*3/?L. The reference range was not used to interpret this result as normal/abnormal. RBC (test code = 789-8) 2.59 See_Comment L [Automated messa ge] The system which generated this result transmitted reference range: 4.26 - 5.52 10*6/?L. The reference range was not used to interpret this result as normal/abnormal. HGB (test code = 718-7) 7.1 g/dL 12.2-16.4 L HCT (test code = 4544-3) 23.2 % 38.4-49.3 L MCV (test code = 787-2) 89.6 fL 81.7-95.6 MCH (test code = 785-6) 27.4 pg 26.1-32.7 MCHC (test code = 786-4) 30.6 g/dL 31.2-35.0 L RDW-SD (test code = 85358-9) 59.3 fL 38.5-51.6 H RDW-CV (test code = 788-0) 18.3 % 12.1-15.4 H PLT (test code = 777-3) 129 See_Comment L [Automated messa ge] The system which generated this result transmitted reference range: 150 - 328 10*3/?L. The reference range was not used to interpret this result as normal/abnormal. MPV (test code = 62169-5) 11.8 fL 9.8-13.0 NRBC/100 WBC (test code = 6639848227) 0.0 See_Comment [Automated me ssage] The system which generated this result transmitted reference range: 0.0 - 10.0 /100 WBCs. The reference range was not used to interpret this result as normal/abnormal. NRBC x10^3 (test code = 9194655266) See_Comment [Automated messa ge] The system which generated this result transmitted reference range: 10*3/?L. The reference range was not used to interpret this result as normal/abnormal. GRAN MAT (NEUT) % (test code = 770-8) 75.8 % IMM GRAN % (test code = 9961469067) 0.60 % LYMPH % (test code = 736-9) 11.2 % MONO % (test code = 5905-5) 6.9 % EOS % (test code = 713-8) 5.2 % BASO % (test code = 706-2) 0.3 % GRAN MAT x10^3(ANC) (test code = 2958004242) 6.89 10*3/uL 1.99-6.95 IMM GRAN x10^3 (test code = 7570131326) 0.05 10*3/uL 0.00-0.06 LYMPH x10^3 (test code = 731-0) 1.02 10*3/uL 1.09-3.23 L MONO x10^3 (test code = 742-7) 0.63 10*3/uL 0.36-1.02 EOS x10^3 (test code = 711-2) 0.47 10*3/uL 0.06-0.53 BASO x10^3 (test code = 704-7) 0.03 10*3/uL 0.01-0.09 Lab Interpretation (test code = 49511-1) Abnormal [facility] GLUCOSE (AUTOMATED)2023-03-24 10:32:48* Test Item Value Reference Range Interpretation Comme nts POCT GLU (test code = 1315555855) 62 mg/dL 70-110 L Lab Interpretation (test cod e = 34564-0) Abnormal [facility] GLUCOSE (AUTOMATED)2023-03-24 10:32:48* Test Item Value Reference Range Interpretation Comme nts POCT GLU (test code = 6456405895) 62 mg/dL 70-110 L Lab Interpretation (test cod e = 02636-6) Abnormal [facility] GLUCOSE (AUTOMATED)2023-03-24 05:42:50* Test Item Value Reference Range Interpretation Comme nts POCT GLU (test code = 0300496641) 98 mg/dL 70-110 Lab Interpretation (test cod e = 80692-4) Normal [facility] GLUCOSE (AUTOMATED)2023-03-24 05:42:50* Test Item Value Reference Range Interpretation Comme nts POCT GLU (test code = 5334313297) 98 mg/dL 70-110 Lab Interpretation (test cod e = 92606-0) Normal [facility] GLUCOSE (AUTOMATED)2023-03-24 00:52:47* Test Item Value Reference Range Interpretation Comme nts POCT GLU (test code = 7812814343) 138 mg/dL 70-110 H Lab Interpretation (test cod e = 36369-4) Abnormal [facility] GLUCOSE (AUTOMATED)2023-03-24 00:52:47* Test Item Value Reference Range Interpretation Comme nts POCT GLU (test code = 3114314009) 138 mg/dL 70-110 H Lab Interpretation (test cod e = 41328-1) Abnormal [facility] GLUCOSE (AUTOMATED)2023-03-23 21:53:18* Test Item Value Reference Range Interpretation Comme nts POCT GLU (test code = 1365226259) 138 mg/dL 70-110 H Lab Interpretation (test cod e = 08202-3) Abnormal [facility] GLUCOSE (AUTOMATED)2023-03-23 21:53:18* Test Item Value Reference Range Interpretation Comme nts POCT GLU (test code = 7401022835) 138 mg/dL 70-110 H Lab Interpretation (test cod e = 05311-3) Abnormal [facility] Packed RBC (in units), 1 Units 2023-03-23 15:45:46* Test Item Value Reference Range Interpretation Comme nts Cross Match Result (test code = 4409) Compatible ISBT Blood Type Code (test code = 234580) 9500 Unit Blood Type (test code = 4410) O Neg Unit Number (test code = 4411) [id number] Blood Expiration Date & Time (test code = 453270) [id number] Status Information (test code = 4412) Issued Product Identification (test code = 4413) Red Blood Cells Product Code (test code = 4414) [id number] Performed at [address] Free: [phone] No. [id number] [facility] Packed RBC (in units), 1 Units 2023-03-23 15:45:46* Test Item Value Reference Range Interpretation Comme nts Cross Match Result (test code = 4409) Compatible ISBT Blood Type Code (test code = 041770) 9500 Unit Blood Type (test code = 4410) O Neg Unit Number (test code = 4411) [id number] Blood Expiration Date & Time (test code = 787092) [id number] Status Information (test code = 4412) Issued Product Identification (test code = 4413) Red Blood Cells Product Code (test code = 4414) [id number] Performed at [place] [address]Toll Free: [phone] No. [id number] [facility] GLUCOSE (AUTOMATED)2023-03-23 13:14:47* Test Item Value Reference Range Interpretation Comme nts POCT GLU (test code = 4450791798) 103 mg/dL 70-110 Lab Interpretation (test cod e = 61180-8) [facility] 13:14:47* Test Item Value Reference Range Interpretation Comme nts POCT GLU (test code = 8044453585) 103 mg/dL 70-110 Lab Interpretation (test cod e = 18623-3) Normal [facility] METABOLIC PANEL (NA, K, CL, CO2, GLUCOSE, BUN, CREATININE, CA)2023-03-23 11:27:17* Test Item Value Reference Range Interpretation Comme nts NA (test code = 2031442175) 134 mmol/L 135-145 L K (test code = 7334764305) 4.1 mmol/L 3.5-5.0 CL (test code = 6034946488) 101 mmol/L 98-108 CO2 TOTAL (test code = 4306397621) 26 mmol/L 23-31 AGAP (test code = 8003329307) 7 2-16 BUN (test code = 4766966163) 32 mg/dL 7-23 H GLUCOSE (test code = 1550131402) 166 mg/dL 70-110 H CREATININE (test code = 1098243895) 2.76 mg/dL 0.60-1.25 H CALCIUM (test code = 3081296002) 8.5 mg/dL 8.6-10.6 L eGFR (test code = 5309352673) 23.5 mL/min/1.73m2 MIKAYLA (test code = MIKAYLA) Association of [...] or abnormalities in imaging tests). Lab Interpretation (test code = 06171-8) [facility] 11:27:17* Test Item Value Reference Range Interpretation Comme nts MAGNESIUM (test code = 9661537851) 1.7 mg/dL 1.7-2.4 Lab Interpretation (test cod e = 16905-5) [facility] (NA, K, CL, CO2, GLUCOSE, BUN, CREATININE, CA)2023-03-23 11:27:17* Test Item Value Reference Range Interpretation Comme nts NA (test code = 2860623756) 134 mmol/L 135-145 L K (test code = 8773805900) 4.1 mmol/L 3.5-5.0 CL (test code = 7519880778) 101 mmol/L 98-108 CO2 TOTAL (test code = 8391554444) 26 mmol/L 23-31 AGAP (test code = 9394306341) 7 2-16 BUN (test code = 0849352752) 32 mg/dL 7-23 H GLUCOSE (test code = 5508356682) 166 mg/dL 70-110 H CREATININE (test code = 4897387556) 2.76 mg/dL 0.60-1.25 H CALCIUM (test code = 3435475775) 8.5 mg/dL 8.6-10.6 L eGFR (test code = 6610755538) 23.5 mL/min/1.73m2 MIKAYLA (test code = MIKAYLA) Association of [...] or abnormalities in imaging tests). Lab Interpretation (test code = 54116-5) [facility] 11:27:17* Test Item Value Reference Range Interpretation Comme nts MAGNESIUM (test code = 0538222611) 1.7 mg/dL 1.7-2.4 Lab Interpretation (test cod e = 71769-6) Normal [facility] WITH [id number] 10:40:50* Test Item Value Reference Range Interpretation Comme nts WBC (test code = 6690-2) 10.26 See_Comment [Automated [employer]] The system which generated this result transmitted reference range: 4.20 - 10.70 10*3/?L. The reference range was not used to interpret this result as normal/abnormal. RBC (test code = 789-8) 2.34 See_Comment L [Automated [employer] ge] The system which generated this result transmitted reference range: 4.26 - 5.52 10*6/?L. The reference range was not used to interpret this result as normal/abnormal. HGB (test code = 718-7) 6.4 g/dL 12.2-16.4 L HCT (test code = 4544-3) 21.3 % 38.4-49.3 L MCV (test code = 787-2) 91.0 fL 81.7-95.6 MCH (test code = 785-6) 27.4 pg 26.1-32.7 MCHC (test code = 786-4) 30.0 g/dL 31.2-35.0 L RDW-SD (test code = 43977-9) 63.3 fL 38.5-51.6 H RDW-CV (test code = 788-0) 19.2 % 12.1-15.4 H PLT (test code = 777-3) 116 See_Comment L [Automated messa ge] The system which generated this result transmitted reference range: 150 - 328 10*3/?L. The reference range was not used to interpret this result as normal/abnormal. MPV (test code = 69248-3) 12.0 fL 9.8-13.0 NRBC/100 WBC (test code = 0929717389) 0.0 See_Comment [Automated me ssage] The system which generated this result transmitted reference range: 0.0 - 10.0 /100 WBCs. The reference range was not used to interpret this result as normal/abnormal. NRBC x10^3 (test code = 0522666741) See_Comment [Automated messa ge] The system which generated this result transmitted reference range: 10*3/?L. The reference range was not used to interpret this result as normal/abnormal. GRAN MAT (NEUT) % (test code = 770-8) 81.4 % IMM GRAN % (test code = 4417446673) 0.40 % LYMPH % (test code = 736-9) 9.8 % MONO % (test code = 5905-5) 4.1 % EOS % (test code = 713-8) 4.1 % BASO % (test code = 706-2) 0.2 % GRAN MAT x10^3(ANC) (test code = 7916448768) 8.35 10*3/uL 1.99-6.95 H IMM GRAN x10^3 (test code = 1594563862) 0.04 10*3/uL 0.00-0.06 LYMPH x10^3 (test code = 731-0) 1.01 10*3/uL 1.09-3.23 L MONO x10^3 (test code = 742-7) 0.42 10*3/uL 0.36-1.02 EOS x10^3 (test code = 711-2) 0.42 10*3/uL 0.06-0.53 BASO x10^3 (test code = 704-7) 0.01-0.09 Lab Interpretation (test code = 75734-3) Abnormal [facility] WITH [id number] 10:40:50* Test Item Value Reference Range Interpretation Comme nts WBC (test code = 6690-2) 10.26 See_Comment [Automated messa ge] The system which generated this result transmitted reference range: 4.20 - 10.70 10*3/?L. The reference range was not used to interpret this result as normal/abnormal. RBC (test code = 789-8) 2.34 See_Comment L [Automated messa ge] The system which generated this result transmitted reference range: 4.26 - 5.52 10*6/?L. The reference range was not used to interpret this result as normal/abnormal. HGB (test code = 718-7) 6.4 g/dL 12.2-16.4 L HCT (test code = 4544-3) 21.3 % 38.4-49.3 L MCV (test code = 787-2) 91.0 fL 81.7-95.6 MCH (test code = 785-6) 27.4 pg 26.1-32.7 MCHC (test code = 786-4) 30.0 g/dL 31.2-35.0 L RDW-SD (test code = 86867-5) 63.3 fL 38.5-51.6 H RDW-CV (test code = 788-0) 19.2 % 12.1-15.4 H PLT (test code = 777-3) 116 See_Comment L [Automated messa ge] The system which generated this result transmitted reference range: 150 - 328 10*3/?L. The reference range was not used to interpret this result as normal/abnormal. MPV (test code = 73302-5) 12.0 fL 9.8-13.0 NRBC/100 WBC (test code = 1367227117) 0.0 See_Comment [Automated me ssage] The system which generated this result transmitted reference range: 0.0 - 10.0 /100 WBCs. The reference range was not used to interpret this result as normal/abnormal. NRBC x10^3 (test code = 9996604605) See_Comment [Automated messa ge] The system which generated this result transmitted reference range: 10*3/?L. The reference range was not used to interpret this result as normal/abnormal. GRAN MAT (NEUT) % (test code = 770-8) 81.4 % IMM GRAN % (test code = 0765763147) 0.40 % LYMPH % (test code = 736-9) 9.8 % MONO % (test code = 5905-5) 4.1 % EOS % (test code = 713-8) 4.1 % BASO % (test code = 706-2) 0.2 % GRAN MAT x10^3(ANC) (test code = 7899966232) 8.35 10*3/uL 1.99-6.95 H IMM GRAN x10^3 (test code = 4807360134) 0.04 10*3/uL 0.00-0.06 LYMPH x10^3 (test code = 731-0) 1.01 10*3/uL 1.09-3.23 L MONO x10^3 (test code = 742-7) 0.42 10*3/uL 0.36-1.02 EOS x10^3 (test code = 711-2) 0.42 10*3/uL 0.06-0.53 BASO x10^3 (test code = 704-7) 0.01-0.09 Lab Interpretation (test code = 70172-5) [facility] [id number] 10:21:00* Test Item Value Reference Range Interpretation Comme nts ABO & RH (test code = 20) O POSITIVE IAT (test code = 1185) Negative [facility] [id number] 10:21:00* Test Item Value Reference Range Interpretation Comme nts ABO & RH (test code = 20) O POSITIVE IAT (test code = 1185) Negative [facility] GLUCOSE (AUTOMATED)2023-03-23 10:13:37* Test Item Value Reference Range Interpretation Comme nts POCT GLU (test code = 8736300466) 184 mg/dL 70-110 H Lab Interpretation (test cod e = 21229-4) [facility] 10:13:37* Test Item Value Reference Range Interpretation Comme nts POCT GLU (test code = 2695585570) 184 mg/dL 70-110 H Lab Interpretation (test cod e = 35217-6) Abnormal [facility] GLUCOSE (AUTOMATED)2023-03-23 05:56:49* Test Item Value Reference Range Interpretation Comme nts POCT GLU (test code = 3235287641) 153 mg/dL 70-110 H Lab Interpretation (test cod e = 53956-7) Abnormal [facility] GLUCOSE (AUTOMATED)2023-03-23 05:56:49* Test Item Value Reference Range Interpretation Comme nts POCT GLU (test code = 4387232339) 153 mg/dL 70-110 H Lab Interpretation (test cod e = 66450-7) Abnormal [facility] GLUCOSE (AUTOMATED)2023-03-23 01:32:51* Test Item Value Reference Range Interpretation Comme nts POCT GLU (test code = 8265587734) 101 mg/dL 70-110 Lab Interpretation (test cod e = 67681-3) Normal [facility] GLUCOSE (AUTOMATED)2023-03-23 01:32:51* Test Item Value Reference Range Interpretation Comme nts POCT GLU (test code = 7991537708) 101 mg/dL 70-110 Lab Interpretation (test cod e = 62121-2) Normal [facility] GLUCOSE (AUTOMATED)2023-03-22 23:27:43* Test Item Value Reference Range Interpretation Comme nts POCT GLU (test code = 1166778788) 120 mg/dL 70-110 H Lab Interpretation (test cod e = 24223-1) Abnormal [facility] GLUCOSE (AUTOMATED)2023-03-22 23:27:43* Test Item Value Reference Range Interpretation Comme nts POCT GLU (test code = 8089335751) 120 mg/dL 70-110 H Lab Interpretation (test cod e = 18695-4) [facility] (NA, K, CL, CO2, GLUCOSE, BUN, CREATININE, CA)2023-03-22 18:52:19* Test Item Value Reference Range [facility]ation [facility] (test code = 4116763077) 135 mmol/L 135-145 K (test code = 6563125932) 3.9 mmol/L 3.5-5.0 CL (test code = 5839714796) 98 mmol/L 98-108 CO2 TOTAL (test code = 5610502791) 28 mmol/L 23-31 AGAP (test code = 0530136675) 9 2-16 BUN (test code = 3637789725) 56 mg/dL 7-23 H GLUCOSE (test code = 0560020100) 76 mg/dL 70-110 CREATININE (test code = 8333514026) 4.58 mg/dL 0.60-1.25 H CALCIUM (test code = 9620710152) 8.1 mg/dL 8.6-10.6 L eGFR (test code = 6212612544) 13.1 mL/min/1.73m2 MIKAYLA (test code = MIKAYLA) Association of [...] or abnormalities in imaging tests). Lab Interpretation (test code = 47953-4) Abnormal [facility] METABOLIC PANEL (NA, K, CL, CO2, GLUCOSE, BUN, CREATININE, CA)2023-03-22 18:52:19* Test Item Value Reference Range Interpretation Comme nts NA (test code = 4692811346) 135 mmol/L 135-145 K (test code = 8227046599) 3.9 mmol/L 3.5-5.0 CL (test code = 7697381419) 98 mmol/L 98-108 CO2 TOTAL (test code = 3606832274) 28 mmol/L 23-31 AGAP (test code = 4594605215) 9 2-16 BUN (test code = 3170936275) 56 mg/dL 7-23 H GLUCOSE (test code = 6376528130) 76 mg/dL 70-110 CREATININE (test code = 9879555353) 4.58 mg/dL 0.60-1.25 H CALCIUM (test code = 9739404853) 8.1 mg/dL 8.6-10.6 L eGFR (test code = 8906016256) 13.1 mL/min/1.73m2 MIKAYLA (test code = MIKAYLA) Association of [...] or abnormalities in imaging tests). Lab Interpretation (test code = 72068-7) Abnormal [facility] GLUCOSE (AUTOMATED)2023-03-22 18:15:41* Test Item Value Reference Range Interpretation Comme nts POCT GLU (test code = 6120808310) 89 mg/dL 70-110 Lab Interpretation (test cod e = 87389-1) Normal [facility] GLUCOSE (AUTOMATED)2023-03-22 18:15:41* Test Item Value Reference Range Interpretation Comme nts POCT GLU (test code = 1686650228) 89 mg/dL 70-110 Lab Interpretation (test cod e = 71781-9) Normal [facility] GLUCOSE (AUTOMATED)2023-03-22 13:40:33* Test Item Value Reference Range Interpretation Comme nts POCT GLU (test code = 4505890547) 112 mg/dL 70-110 H Lab Interpretation (test cod e = 37525-1) Abnormal [facility] GLUCOSE (AUTOMATED)2023-03-22 13:40:33* Test Item Value Reference Range Interpretation Comme nts POCT GLU (test code = 7652585373) 112 mg/dL 70-110 H Lab Interpretation (test cod e = 69007-5) Abnormal [facility] GLUCOSE (AUTOMATED)2023-03-22 08:06:47* Test Item Value Reference Range Interpretation Comme nts POCT GLU (test code = 1117533617) 77 mg/dL 70-110 Lab Interpretation (test cod e = 47420-5) Normal [facility] GLUCOSE (AUTOMATED)2023-03-22 08:06:47* Test Item Value Reference Range Interpretation Comme nts POCT GLU (test code = 1919577025) 77 mg/dL 70-110 Lab Interpretation (test cod e = 53838-4) Normal [facility] GLUCOSE (AUTOMATED)2023-03-22 05:19:43* Test Item Value Reference Range Interpretation Comme nts POCT GLU (test code = 7466356195) 84 mg/dL 70-110 Lab Interpretation (test cod e = 47953-3) Normal [facility] GLUCOSE (AUTOMATED)2023-03-22 05:19:43* Test Item Value Reference Range Interpretation Comme nts POCT GLU (test code = 2288384779) 84 mg/dL 70-110 Lab Interpretation (test cod e = 00067-0) Normal [facility] GLUCOSE (AUTOMATED)2023-03-22 02:03:38* Test Item Value Reference Range Interpretation Comme nts POCT GLU (test code = 1979783852) 112 mg/dL 70-110 H Lab Interpretation (test cod e = 02245-2) Abnormal [facility] GLUCOSE (AUTOMATED)2023-03-22 02:03:38* Test Item Value Reference Range Interpretation Comme nts POCT GLU (test code = 0046524966) 112 mg/dL 70-110 H Lab Interpretation (test cod e = 18296-3) Abnormal [facility] GLUCOSE (AUTOMATED)2023-03-21 21:39:47* Test Item Value Reference Range Interpretation Comme nts POCT GLU (test code = 9721625654) 161 mg/dL 70-110 H Lab Interpretation (test cod e = 95902-9) Abnormal [facility] GLUCOSE (AUTOMATED)2023-03-21 21:39:47* Test Item Value Reference Range Interpretation Comme nts POCT GLU (test code = 1037518779) 161 mg/dL 70-110 H Lab Interpretation (test cod e = 19081-3) Abnormal [facility] GLUCOSE (AUTOMATED)2023-03-21 17:34:55* Test Item Value Reference Range Interpretation Comme nts POCT GLU (test code = 8795740304) 138 mg/dL 70-110 H Lab Interpretation (test cod e = 72276-7) Abnormal [facility] GLUCOSE (AUTOMATED)2023-03-21 17:34:55* Test Item Value Reference Range Interpretation Comme nts POCT GLU (test code = 1273266860) 138 mg/dL 70-110 H Lab Interpretation (test cod e = 41244-3) Abnormal [facility] GLUCOSE (AUTOMATED)2023-03-21 15:12:42* Test Item Value Reference Range Interpretation Comme nts POCT GLU (test code = 2585340844) 128 mg/dL 70-110 H Lab Interpretation (test cod e = 91597-3) Abnormal [facility] GLUCOSE (AUTOMATED)2023-03-21 15:12:42* Test Item Value Reference Range Interpretation Comme nts POCT GLU (test code = 8673091718) 128 mg/dL 70-110 H Lab Interpretation (test cod e = 49001-1) Abnormal [facility] GLUCOSE (AUTOMATED)2023-03-21 12:50:13* Test Item Value Reference Range Interpretation Comme nts POCT GLU (test code = 0657303623) 84 mg/dL 70-110 Lab Interpretation (test cod e = 33987-7) Normal [facility] GLUCOSE (AUTOMATED)2023-03-21 12:50:13* Test Item Value Reference Range Interpretation Comme nts POCT GLU (test code = 1228991086) 84 mg/dL 70-110 Lab Interpretation (test cod e = 28470-2) Normal [facility] GLUCOSE (AUTOMATED)2023-03-21 09:59:12* Test Item Value Reference Range Interpretation Comme nts POCT GLU (test code = 2766392204) 122 mg/dL 70-110 H Lab Interpretation (test cod e = 03262-0) Abnormal [facility] GLUCOSE (AUTOMATED)2023-03-21 09:59:12* Test Item Value Reference Range Interpretation Comme nts POCT GLU (test code = 0944356293) 122 mg/dL 70-110 H Lab Interpretation (test cod e = 25103-3) Abnormal [facility] GLUCOSE (AUTOMATED)2023-03-21 05:26:09* Test Item Value Reference Range Interpretation Comme nts POCT GLU (test code = 1326529787) 94 mg/dL 70-110 Lab Interpretation (test cod e = 73074-1) Normal [facility] GLUCOSE (AUTOMATED)2023-03-21 05:26:09* Test Item Value Reference Range Interpretation Comme nts POCT GLU (test code = 5174019317) 94 mg/dL 70-110 Lab Interpretation (test cod e = 56992-8) Normal [facility] GLUCOSE (AUTOMATED)2023-03-21 01:35:28* Test Item Value Reference Range Interpretation Comme nts POCT GLU (test code = 5618746003) 132 mg/dL 70-110 H Lab Interpretation (test cod e = 45422-4) Abnormal [facility] GLUCOSE (AUTOMATED)2023-03-21 01:35:28* Test Item Value Reference Range Interpretation Comme nts POCT GLU (test code = 1237166392) 132 mg/dL 70-110 H Lab Interpretation (test cod e = 32332-5) Abnormal [facility] GLUCOSE (AUTOMATED)2023-03-20 22:11:50* Test Item Value Reference Range Interpretation Comme nts POCT GLU (test code = 4060518612) 118 mg/dL 70-110 H Lab Interpretation (test cod e = 73043-5) Abnormal [facility] GLUCOSE (AUTOMATED)2023-03-20 22:11:50* Test Item Value Reference Range Interpretation Comme nts POCT GLU (test code = 6414901258) 118 mg/dL 70-110 H Lab Interpretation (test cod e = 36720-4) Abnormal [facility] GLUCOSE (AUTOMATED)2023-03-20 17:58:35* Test Item Value Reference Range Interpretation Comme nts POCT GLU (test code = [id number]) 105 mg/dL 70-110 Lab Interpretation (test cod e = 84425-2) Normal [facility] GLUCOSE (AUTOMATED)2023-03-20 17:58:35* Test Item Value Reference Range Interpretation Comme nts POCT GLU (test code = [id number]) 105 mg/dL 70-110 Lab Interpretation (test cod e = 88637-3) Normal [facility] GLUCOSE (AUTOMATED)2023-03-20 12:53:40* Test Item Value Reference Range Interpretation Comme nts POCT GLU (test code = [id number]) 156 mg/dL 70-110 H Lab Interpretation (test cod e = 85711-0) Abnormal [facility] GLUCOSE (AUTOMATED)2023-03-20 12:53:40* Test Item Value Reference Range Interpretation Comme nts POCT GLU (test code = [id number]) 156 mg/dL 70-110 H Lab Interpretation (test cod e = 02084-6) [facility] 12:53:40* Test Item Value Reference Range Interpretation Comme nts POCT GLU (test code = [id number]) 156 mg/dL 70-110 H Lab Interpretation (test cod e = 50261-5) Abnormal [facility] GLUCOSE (AUTOMATED)2023-03-20 09:01:26* Test Item Value Reference Range Interpretation Comme nts POCT GLU (test code = 7439635508) 155 mg/dL 70-110 H Lab Interpretation (test cod e = 70688-1) Abnormal [facility] GLUCOSE (AUTOMATED)2023-03-20 09:01:26* Test Item Value Reference Range Interpretation Comme nts POCT GLU (test code = 6975954027) 155 mg/dL 70-110 H Lab Interpretation (test cod e = 66171-5) Abnormal [facility] GLUCOSE (AUTOMATED)2023-03-20 05:06:08* Test Item Value Reference Range Interpretation Comme nts POCT GLU (test code = 3783172512) 135 mg/dL 70-110 H Lab Interpretation (test cod e = 53080-9) Abnormal [facility] GLUCOSE (AUTOMATED)2023-03-20 05:06:08* Test Item Value Reference Range Interpretation Comme nts POCT GLU (test code = 2991268019) 135 mg/dL 70-110 H Lab Interpretation (test cod e = 36537-5) [facility] 16:53:06* Test Item Value Reference Range Interpretation Comme nts POCT GLU (test code = 3717568508) 142 mg/dL 70-110 H Lab Interpretation (test cod e = 04489-2) Abnormal [facility] GLUCOSE (AUTOMATED)2023-03-19 16:53:06* Test Item Value Reference Range Interpretation Comme nts POCT GLU (test code = 6630218421) 142 mg/dL 70-110 H Lab Interpretation (test cod e = 08807-5) Abnormal [facility] GLUCOSE (AUTOMATED)2023-03-19 14:32:54* Test Item Value Reference Range Interpretation Comme nts POCT GLU (test code = 5031768346) 96 mg/dL 70-110 Lab Interpretation (test cod e = 18501-8) Normal [facility] GLUCOSE (AUTOMATED)2023-03-19 14:32:54* Test Item Value Reference Range Interpretation Comme nts POCT GLU (test code = 0172042841) 96 mg/dL 70-110 Lab Interpretation (test cod e = 96018-1) Normal [facility] GLUCOSE (AUTOMATED)2023-03-19 09:33:09* Test Item Value Reference Range Interpretation Comme nts POCT GLU (test code = 7967997068) 170 mg/dL 70-110 H Lab Interpretation (test cod e = 57984-6) Abnormal [facility] GLUCOSE (AUTOMATED)2023-03-19 09:33:09* Test Item Value Reference Range Interpretation Comme nts POCT GLU (test code = 5286855633) 170 mg/dL 70-110 H Lab Interpretation (test cod e = 29670-2) Abnormal [facility] GLUCOSE (AUTOMATED)2023-03-19 01:39:45* Test Item Value Reference Range Interpretation Comme nts POCT GLU (test code = 5253090375) 114 mg/dL 70-110 H Lab Interpretation (test cod e = 60872-9) Abnormal [facility] GLUCOSE (AUTOMATED)2023-03-19 01:39:45* Test Item Value Reference Range Interpretation Comme nts POCT GLU (test code = 7725680757) 114 mg/dL 70-110 H Lab Interpretation (test cod e = 10984-2) Abnormal [facility] GLUCOSE (AUTOMATED)2023-03-18 13:34:41* Test Item Value Reference Range Interpretation Comme nts POCT GLU (test code = 1797061385) 70 mg/dL 70-110 Lab Interpretation (test cod e = 53745-9) Normal [facility] GLUCOSE (AUTOMATED)2023-03-18 13:34:41* Test Item Value Reference Range Interpretation Comme nts POCT GLU (test code = 8733663960) 70 mg/dL 70-110 Lab Interpretation (test cod e = 90587-4) Normal [facility] METABOLIC PANEL (NA, K, CL, CO2, GLUCOSE, BUN, CREATININE, CA)2023-03-18 10:13:56* Test Item Value Reference Range Interpretation Comme nts NA (test code = 2592977834) 132 mmol/L 135-145 L K (test code = 3386123967) 4.1 mmol/L 3.5-5.0 CL (test code = 6847681945) 95 mmol/L 98-108 L CO2 TOTAL (test code = 9944453737) 23 mmol/L 23-31 AGAP (test code = 3594212913) 14 2-16 BUN (test code = 7705338418) 70 mg/dL 7-23 H GLUCOSE (test code = 0611946773) 165 mg/dL 70-110 H CREATININE (test code = 1247843976) 5.56 mg/dL 0.60-1.25 H CALCIUM (test code = 0597710051) 7.7 mg/dL 8.6-10.6 L eGFR (test code = 4607026857) 10.5 mL/min/1.73m2 MIKAYLA (test code = MIKAYLA) Association of [...] or abnormalities in imaging tests). Lab Interpretation (test code = 12799-6) [facility]* Test Item Value Reference Range Interpretation Comme nts MAGNESIUM (test code = 4796153658) 1.7 mg/dL 1.7-2.4 Lab Interpretation (test cod e = 31081-6) [facility] 10:13:56* Test Item Value Reference Range Interpretation Comme nts PHOSPHORUS (test code = 0625260581) 5.2 mg/dL 2.5-5.0 H Lab Interpretation (test cod e = 69188-8) [facility] (NA, K, CL, CO2, GLUCOSE, BUN, CREATININE, CA)2023-03-18 10:13:56* Test Item Value Reference Range Interpretation Comme nts NA (test code = 8266852365) 132 mmol/L 135-145 L K (test code = 5489598757) 4.1 mmol/L 3.5-5.0 CL (test code = 5510461021) 95 mmol/L 98-108 L CO2 TOTAL (test code = 2189356547) 23 mmol/L 23-31 AGAP (test code = 5123148970) 14 2-16 BUN (test code = 3017165135) 70 mg/dL 7-23 H GLUCOSE (test code = 4039604900) 165 mg/dL 70-110 H CREATININE (test code = 3941368011) 5.56 mg/dL 0.60-1.25 H CALCIUM (test code = 9741929989) 7.7 mg/dL 8.6-10.6 L eGFR (test code = 2281621994) 10.5 mL/min/1.73m2 MIKAYLA (test code = MIKAYLA) Association of [...] or abnormalities in imaging tests). Lab Interpretation (test code = 11956-4) [facility] 10:13:56* Test Item Value Reference Range Interpretation Comme nts MAGNESIUM (test code = 6469600373) 1.7 mg/dL 1.7-2.4 Lab Interpretation (test cod e = 04091-7) [facility] 10:13:56* Test Item Value Reference Range Interpretation Comme nts PHOSPHORUS (test code = 7319457222) 5.2 mg/dL 2.5-5.0 H Lab Interpretation (test cod e = 61206-5) [facility] [id number] 10:01:38* Test Item Value Reference Range Interpretation Comme nts WBC (test code = 6690-2) 11.02 See_Comment H [Automated [employer]] The system which generated this result transmitted reference range: 4.20 - 10.70 10*3/?L. The reference range was not used to interpret this result as normal/abnormal. RBC (test code = 789-8) 2.52 See_Comment L [Automated messa ge] The system which generated this result transmitted reference range: 4.26 - 5.52 10*6/?L. The reference range was not used to interpret this result as normal/abnormal. HGB (test code = 718-7) 6.9 g/dL 12.2-16.4 L HCT (test code = 4544-3) 22.5 % 38.4-49.3 L MCV (test code = 787-2) 89.3 fL 81.7-95.6 MCH (test code = 785-6) 27.4 pg 26.1-32.7 MCHC (test code = 786-4) 30.7 g/dL 31.2-35.0 L RDW-SD (test code = 71378-1) 62.7 fL 38.5-51.6 H RDW-CV (test code = 788-0) 19.3 % 12.1-15.4 H PLT (test code = 777-3) 150 See_Comment [Automated messa ge] The system which generated this result transmitted reference range: 150 - 328 10*3/?L. The reference range was not used to interpret this result as normal/abnormal. MPV (test code = 62114-6) 13.0 fL 9.8-13.0 NRBC/100 WBC (test code = 1756882171) 0.0 See_Comment [Automated [employer]] The system which generated this result transmitted reference range: 0.0 - 10.0 /100 WBCs. The reference range was not used to interpret this result as normal/abnormal. NRBC x10^3 (test code = 7364007600) See_Comment [Automated messa ge] The system which generated this result transmitted reference range: 10*3/?L. The reference range was not used to interpret this result as normal/abnormal. GRAN MAT (NEUT) % (test code = 770-8) 82.9 % IMM GRAN % (test code = 0344150111) 0.50 % LYMPH % (test code = 736-9) 7.0 % MONO % (test code = 5905-5) 5.5 % EOS % (test code = 713-8) 3.8 % BASO % (test code = 706-2) 0.3 % GRAN MAT x10^3(ANC) (test code = 5002042884) 9.13 10*3/uL 1.99-6.95 H IMM GRAN x10^3 (test code = 3029168312) 0.06 10*3/uL 0.00-0.06 LYMPH x10^3 (test code = 731-0) 0.77 10*3/uL 1.09-3.23 L MONO x10^3 (test code = 742-7) 0.61 10*3/uL 0.36-1.02 EOS x10^3 (test code = 711-2) 0.42 10*3/uL 0.06-0.53 BASO x10^3 (test code = 704-7) 0.03 10*3/uL 0.01-0.09 Lab Interpretation (test code = 42783-5) Abnormal [facility] WITH [id number] 10:01:38* Test Item Value Reference Range Interpretation Comme nts WBC (test code = 6690-2) 11.02 See_Comment H [Automated messa ge] The system which generated this result transmitted reference range: 4.20 - 10.70 10*3/?L. The reference range was not used to interpret this result as normal/abnormal. RBC (test code = 789-8) 2.52 See_Comment L [Automated messa ge] The system which generated this result transmitted reference range: 4.26 - 5.52 10*6/?L. The reference range was not used to interpret this result as normal/abnormal. HGB (test code = 718-7) 6.9 g/dL 12.2-16.4 L HCT (test code = 4544-3) 22.5 % 38.4-49.3 L MCV (test code = 787-2) 89.3 fL 81.7-95.6 MCH (test code = 785-6) 27.4 pg 26.1-32.7 MCHC (test code = 786-4) 30.7 g/dL 31.2-35.0 L RDW-SD (test code = 83843-6) 62.7 fL 38.5-51.6 H RDW-CV (test code = 788-0) 19.3 % 12.1-15.4 H PLT (test code = 777-3) 150 See_Comment [Automated messa ge] The system which generated this result transmitted reference range: 150 - 328 10*3/?L. The reference range was not used to interpret this result as normal/abnormal. MPV (test code = 46865-6) 13.0 fL 9.8-13.0 NRBC/100 WBC (test code = 3089545094) 0.0 See_Comment [Automated me ssage] The system which generated this result transmitted reference range: 0.0 - 10.0 /100 WBCs. The reference range was not used to interpret this result as normal/abnormal. NRBC x10^3 (test code = 0068480566) See_Comment [Automated messa ge] The system which generated this result transmitted reference range: 10*3/?L. The reference range was not used to interpret this result as normal/abnormal. GRAN MAT (NEUT) % (test code = 770-8) 82.9 % IMM GRAN % (test code = 4167163030) 0.50 % LYMPH % (test code = 736-9) 7.0 % MONO % (test code = 5905-5) 5.5 % EOS % (test code = 713-8) 3.8 % BASO % (test code = 706-2) 0.3 % GRAN MAT x10^3(ANC) (test code = 7401864307) 9.13 10*3/uL 1.99-6.95 H IMM GRAN x10^3 (test code = 3259193964) 0.06 10*3/uL 0.00-0.06 LYMPH x10^3 (test code = 731-0) 0.77 10*3/uL 1.09-3.23 L MONO x10^3 (test code = 742-7) 0.61 10*3/uL 0.36-1.02 EOS x10^3 (test code = 711-2) 0.42 10*3/uL 0.06-0.53 BASO x10^3 (test code = 704-7) 0.03 10*3/uL 0.01-0.09 Lab Interpretation (test code = 73529-2) Abnormal [facility] WITH [id number] 10:01:38* Test Item Value Reference Range Interpretation Comme nts WBC (test code = 6690-2) 11.02 See_Comment H [Automated messa ge] The system which generated this result transmitted reference range: 4.20 - 10.70 10*3/?L. The reference range was not used to interpret this result as normal/abnormal. RBC (test code = 789-8) 2.52 See_Comment L [Automated messa ge] The system which generated this result transmitted reference range: 4.26 - 5.52 10*6/?L. The reference range was not used to interpret this result as normal/abnormal. HGB (test code = 718-7) 6.9 g/dL 12.2-16.4 L HCT (test code = 4544-3) 22.5 % 38.4-49.3 L MCV (test code = 787-2) 89.3 fL 81.7-95.6 MCH (test code = 785-6) 27.4 pg 26.1-32.7 MCHC (test code = 786-4) 30.7 g/dL 31.2-35.0 L RDW-SD (test code = 41202-5) 62.7 fL 38.5-51.6 H RDW-CV (test code = 788-0) 19.3 % 12.1-15.4 H PLT (test code = 777-3) 150 See_Comment [Automated messa ge] The system which generated this result transmitted reference range: 150 - 328 10*3/?L. The reference range was not used to interpret this result as normal/abnormal. MPV (test code = 66743-4) 13.0 fL 9.8-13.0 NRBC/100 WBC (test code = 8877068289) 0.0 See_Comment [Automated me ssage] The system which generated this result transmitted reference range: 0.0 - 10.0 /100 WBCs. The reference range was not used to interpret this result as normal/abnormal. NRBC x10^3 (test code = 2964315954) See_Comment [Automated messa ge] The system which generated this result transmitted reference range: 10*3/?L. The reference range was not used to interpret this result as normal/abnormal. GRAN MAT (NEUT) % (test code = 770-8) 82.9 % IMM GRAN % (test code = 2674758853) 0.50 % LYMPH % (test code = 736-9) 7.0 % MONO % (test code = 5905-5) 5.5 % EOS % (test code = 713-8) 3.8 % BASO % (test code = 706-2) 0.3 % GRAN MAT x10^3(ANC) (test code = 4114192648) 9.13 10*3/uL 1.99-6.95 H IMM GRAN x10^3 (test code = 8647768688) 0.06 10*3/uL 0.00-0.06 LYMPH x10^3 (test code = 731-0) 0.77 10*3/uL 1.09-3.23 L MONO x10^3 (test code = 742-7) 0.61 10*3/uL 0.36-1.02 EOS x10^3 (test code = 711-2) 0.42 10*3/uL 0.06-0.53 BASO x10^3 (test code = 704-7) 0.03 10*3/uL 0.01-0.09 Lab Interpretation (test code = 82131-5) Abnormal [facility] GLUCOSE (AUTOMATED)2023-03-18 09:39:12* Test Item Value Reference Range Interpretation Comme nts POCT GLU (test code = 6231948901) 183 mg/dL 70-110 H Notified Provide r Lab Interpretation (test code = 28676-0) Abnormal [facility] GLUCOSE (AUTOMATED)2023-03-18 09:39:12* Test Item Value Reference Range Interpretation Comme nts POCT GLU (test code = 8462133347) 183 mg/dL 70-110 H Notified Provide r Lab Interpretation (test code = 00805-5) Abnormal [facility] GLUCOSE (AUTOMATED)2023-03-18 04:40:04* Test Item Value Reference Range Interpretation Comme nts POCT GLU (test code = 6923725403) 104 mg/dL 70-110 Notified Provide r Lab Interpretation (test code = 05223-0) Normal [facility] GLUCOSE (AUTOMATED)2023-03-18 04:40:04* Test Item Value Reference Range Interpretation Comme nts POCT GLU (test code = 9090534040) 104 mg/dL 70-110 Notified Provide r Lab Interpretation (test code = 14876-9) Normal [facility] GLUCOSE (AUTOMATED)2023-03-18 01:44:25* Test Item Value Reference Range Interpretation Comme nts POCT GLU (test code = 1640708183) 129 mg/dL 70-110 H Notified Provide r Lab Interpretation (test code = 18225-6) Abnormal [facility] GLUCOSE (AUTOMATED)2023-03-18 01:44:25* Test Item Value Reference Range Interpretation Comme nts POCT GLU (test code = 9092909354) 129 mg/dL 70-110 H Notified Provide r Lab Interpretation (test code = 02348-2) Abnormal [facility] GLUCOSE (AUTOMATED)2023-03-17 22:26:08* Test Item Value Reference Range Interpretation Comme nts POCT GLU (test code = 3401525194) 78 mg/dL 70-110 Lab Interpretation (test cod e = 23579-8) Normal [facility] GLUCOSE (AUTOMATED)2023-03-17 22:26:08* Test Item Value Reference Range Interpretation Comme nts POCT GLU (test code = 0870412671) 78 mg/dL 70-110 Lab Interpretation (test cod e = 35815-0) Normal [facility] GLUCOSE (AUTOMATED)2023-03-17 17:32:02* Test Item Value Reference Range Interpretation Comme nts POCT GLU (test code = 8005158540) 73 mg/dL 70-110 Lab Interpretation (test cod e = 86290-8) Normal [facility] GLUCOSE (AUTOMATED)2023-03-17 17:32:02* Test Item Value Reference Range Interpretation Comme nts POCT GLU (test code = 0789053601) 73 mg/dL 70-110 Lab Interpretation (test cod e = 48189-3) Normal [facility] GLUCOSE (AUTOMATED)2023-03-17 15:21:42* Test Item Value Reference Range Interpretation Comme nts POCT GLU (test code = 8867395646) 83 mg/dL 70-110 Lab Interpretation (test cod e = 03770-2) [facility] 15:21:42* Test Item Value Reference Range Interpretation Comme [facility] POCT GLU (test code = 6395657143) 83 mg/dL 70-110 Lab Interpretation (test cod e = 76158-5) Normal [facility] WITH [id number] 10:05:01* Test Item Value Reference Range Interpretation Comme [facility] WBC (test code = 6690-2) 10.65 See_Comment [Automated messa ge] The system which generated this result transmitted reference range: 4.20 - 10.70 10*3/?L. The reference range was not used to interpret this result as normal/abnormal. RBC (test code = 789-8) 2.64 See_Comment L [Automated messa ge] The system which generated this result transmitted reference range: 4.26 - 5.52 10*6/?L. The reference range was not used to interpret this result as normal/abnormal. HGB (test code = 718-7) 7.2 g/dL 12.2-16.4 L HCT (test code = 4544-3) 23.7 % 38.4-49.3 L MCV (test code = 787-2) 89.8 fL 81.7-95.6 MCH (test code = 785-6) 27.3 pg 26.1-32.7 MCHC (test code = 786-4) 30.4 g/dL 31.2-35.0 L RDW-SD (test code = 60269-8) 63.6 fL 38.5-51.6 H RDW-CV (test code = 788-0) 19.4 % 12.1-15.4 H PLT (test code = 777-3) 126 See_Comment L [Automated messa ge] The system which generated this result transmitted reference range: 150 - 328 10*3/?L. The reference range was not used to interpret this result as normal/abnormal. MPV (test code = 99244-7) 13.0 fL 9.8-13.0 NRBC/100 WBC (test code = 6908820829) 0.0 See_Comment [Automated me ssage] The system which generated this result transmitted reference range: 0.0 - 10.0 /100 WBCs. The reference range was not used to interpret this result as normal/abnormal. NRBC x10^3 (test code = 5785164075) See_Comment [Automated messa ge] The system which generated this result transmitted reference range: 10*3/?L. The reference range was not used to interpret this result as normal/abnormal. GRAN MAT (NEUT) % (test code = 770-8) 80.7 % IMM GRAN % (test code = 0219882461) 0.50 % LYMPH % (test code = 736-9) 8.5 % MONO % (test code = 5905-5) 6.3 % EOS % (test code = 713-8) 3.8 % BASO % (test code = 706-2) 0.2 % GRAN MAT x10^3(ANC) (test code = 4674463122) 8.60 10*3/uL 1.99-6.95 H IMM GRAN x10^3 (test code = 8807696465) 0.05 10*3/uL 0.00-0.06 LYMPH x10^3 (test code = 731-0) 0.90 10*3/uL 1.09-3.23 L MONO x10^3 (test code = 742-7) 0.67 10*3/uL 0.36-1.02 EOS x10^3 (test code = 711-2) 0.41 10*3/uL 0.06-0.53 BASO x10^3 (test code = 704-7) 0.01-0.09 Lab Interpretation (test code = 49266-7) Abnormal [facility] WITH [id number] 10:05:01* Test Item Value Reference Range Interpretation Comme nts WBC (test code = 6690-2) 10.65 See_Comment [Automated messa ge] The system which generated this result transmitted reference range: 4.20 - 10.70 10*3/?L. The reference range was not used to interpret this result as normal/abnormal. RBC (test code = 789-8) 2.64 See_Comment L [Automated messa ge] The system which generated this result transmitted reference range: 4.26 - 5.52 10*6/?L. The reference range was not used to interpret this result as normal/abnormal. HGB (test code = 718-7) 7.2 g/dL 12.2-16.4 L HCT (test code = 4544-3) 23.7 % 38.4-49.3 L MCV (test code = 787-2) 89.8 fL 81.7-95.6 MCH (test code = 785-6) 27.3 pg 26.1-32.7 MCHC (test code = 786-4) 30.4 g/dL 31.2-35.0 L RDW-SD (test code = 03894-4) 63.6 fL 38.5-51.6 H RDW-CV (test code = 788-0) 19.4 % 12.1-15.4 H PLT (test code = 777-3) 126 See_Comment L [Automated [employer]] The system which generated this result transmitted reference range: 150 - 328 10*3/?L. The reference range was not used to interpret this result as normal/abnormal. MPV (test code = 07566-6) 13.0 fL 9.8-13.0 NRBC/100 WBC (test code = 0389179772) 0.0 See_Comment [Automated [employer]] The system which generated this result transmitted reference range: 0.0 - 10.0 /100 WBCs. The reference range was not used to interpret this result as normal/abnormal. NRBC x10^3 (test code = 2092784048) See_Comment [Automated [employer]] The system which generated this result transmitted reference range: 10*3/?L. The reference range was not used to interpret this result as normal/abnormal. GRAN MAT (NEUT) % (test code = 770-8) 80.7 % IMM GRAN % (test code = 3508189385) 0.50 % LYMPH % (test code = 736-9) 8.5 % MONO % (test code = 5905-5) 6.3 % EOS % (test code = 713-8) 3.8 % BASO % (test code = 706-2) 0.2 % GRAN MAT x10^3(ANC) (test code = 4842413342) 8.60 10*3/uL 1.99-6.95 H IMM GRAN x10^3 (test code = 2177413011) 0.05 10*3/uL 0.00-0.06 LYMPH x10^3 (test code = 731-0) 0.90 10*3/uL 1.09-3.23 L MONO x10^3 (test code = 742-7) 0.67 10*3/uL 0.36-1.02 EOS x10^3 (test code = 711-2) 0.41 10*3/uL 0.06-0.53 BASO x10^3 (test code = 704-7) 0.01-0.09 Lab Interpretation (test code = 24260-0) Abnormal [facility] GLUCOSE (AUTOMATED)2023-03-17 09:37:33* Test Item Value Reference Range Interpretation Comme nts POCT GLU (test code = 8232822753) 121 mg/dL 70-110 H Notified Provide r Lab Interpretation (test code = 00444-5) Abnormal [facility] GLUCOSE (AUTOMATED)2023-03-17 09:37:33* Test Item Value Reference Range Interpretation Comme nts POCT GLU (test code = 4582631515) 121 mg/dL 70-110 H Notified Provide r Lab Interpretation (test code = 74515-7) Abnormal [facility] GLUCOSE (AUTOMATED)2023-03-17 04:37:54* Test Item Value Reference Range Interpretation Comme nts POCT GLU (test code = 0224783548) 100 mg/dL 70-110 Notified Provide r Lab Interpretation (test code = 20000-1) Normal [facility] GLUCOSE (AUTOMATED)2023-03-17 04:37:54* Test Item Value Reference Range Interpretation Comme nts POCT GLU (test code = 7962265007) 100 mg/dL 70-110 Notified Provide r Lab Interpretation (test code = 21916-2) Normal [facility] GLUCOSE (AUTOMATED)2023-03-17 01:26:17* Test Item Value Reference Range Interpretation Comme nts POCT GLU (test code = 5671511351) 62 mg/dL 70-110 L Notified Provide r Lab Interpretation (test code = 59960-0) Abnormal [facility] GLUCOSE (AUTOMATED)2023-03-17 01:26:17* Test Item Value Reference Range Interpretation Comme nts POCT GLU (test code = 7468828048) 62 mg/dL 70-110 L Notified Provide r Lab Interpretation (test code = 57836-9) Abnormal [facility] GLUCOSE (AUTOMATED)2023-03-16 16:25:19* Test Item Value Reference Range Interpretation Comme nts POCT GLU (test code = 0417431436) 175 mg/dL 70-110 H Lab Interpretation (test cod e = 22725-5) Abnormal [facility] GLUCOSE (AUTOMATED)2023-03-16 16:25:19* Test Item Value Reference Range Interpretation Comme nts POCT GLU (test code = 6592645539) 175 mg/dL 70-110 H Lab Interpretation (test cod e = 04768-0) [facility]:27:52* Test Item Value Reference Range Interpretation Comme nts PHOSPHORUS (test code = 3589470134) 3.6 mg/dL 2.5-5.0 Lab Interpretation (test cod e = 64425-2) [facility] 12:27:52* Test Item Value Reference Range Interpretation Comme nts PHOSPHORUS (test code = 8197673769) 3.6 mg/dL 2.5-5.0 Lab Interpretation (test cod e = 49058-9) Normal [facility] METABOLIC PANEL (NA, K, CL, CO2, GLUCOSE, BUN, CREATININE, CA)2023-03-16 12:27:51* Test Item Value Reference Range Interpretation Comme nts NA (test code = 8294116995) 131 mmol/L 135-145 L K (test code = 3993326153) 3.9 mmol/L 3.5-5.0 CL (test code = 0637476845) 98 mmol/L 98-108 CO2 TOTAL (test code = 9248988882) 23 mmol/L 23-31 AGAP (test code = 0824394475) 10 2-16 BUN (test code = 9812374592) 42 mg/dL 7-23 H GLUCOSE (test code = 1377887574) 148 mg/dL 70-110 H CREATININE (test code = 7273872808) 3.09 mg/dL 0.60-1.25 H CALCIUM (test code = 6996375657) 7.9 mg/dL 8.6-10.6 L eGFR (test code = 8979469732) 20.7 mL/min/1.73m2 MIKAYLA (test code = MIKAYLA) Association of [...] or abnormalities in imaging tests). Lab Interpretation (test code = 67456-9) [facility]* Test Item Value Reference Range Interpretation Comme nts MAGNESIUM (test code = 7707284957) 1.7 mg/dL 1.7-2.4 Lab Interpretation (test cod e = 65819-5) [facility] (NA, K, CL, CO2, GLUCOSE, BUN, CREATININE, [place])2023-03-16 12:27:51* Test Item Value Reference Range Interpretation Comme nts NA (test code = 1541618941) 131 mmol/L 135-145 L K (test code = 6078516796) 3.9 mmol/L 3.5-5.0 CL (test code = 1855282473) 98 mmol/L 98-108 CO2 TOTAL (test code = 1683393806) 23 mmol/L 23-31 AGAP (test code = 8092002670) 10 2-16 BUN (test code = 9870693484) 42 mg/dL 7-23 H GLUCOSE (test code = 1729152586) 148 mg/dL 70-110 H CREATININE (test code = 2234057273) 3.09 mg/dL 0.60-1.25 H CALCIUM (test code = 1696779323) 7.9 mg/dL 8.6-10.6 L eGFR (test code = 7923640401) 20.7 mL/min/1.73m2 MIKAYLA (test code = MIKAYLA) Association of [...] or abnormalities in imaging tests). Lab Interpretation (test code = 37016-2) [facility]* Test Item Value Reference Range Interpretation Comme nts MAGNESIUM (test code = 0754178119) 1.7 mg/dL 1.7-2.4 Lab Interpretation (test cod e = 40645-7) Normal [facility] GLUCOSE (AUTOMATED)2023-03-16 11:17:32* Test Item Value Reference Range Interpretation Comme nts POCT GLU (test code = 3596837073) 166 mg/dL 70-110 H Lab Interpretation (test cod e = 80566-5) Abnormal [facility] GLUCOSE (AUTOMATED)2023-03-16 11:17:32* Test Item Value Reference Range Interpretation Comme nts POCT GLU (test code = 3140044388) 166 mg/dL 70-110 H Lab Interpretation (test cod e = 55375-8) Abnormal [facility] GLUCOSE (AUTOMATED)2023-03-16 05:25:52* Test Item Value Reference Range Interpretation Comme nts POCT GLU (test code = 1910762991) 154 mg/dL 70-110 H Lab Interpretation (test cod e = 97561-5) Abnormal [facility] GLUCOSE (AUTOMATED)2023-03-16 05:25:52* Test Item Value Reference Range Interpretation Comme nts POCT GLU (test code = 3019686771) 154 mg/dL 70-110 H Lab Interpretation (test cod e = 57572-8) Abnormal [facility] GLUCOSE (AUTOMATED)2023-03-16 00:57:43* Test Item Value Reference Range Interpretation Comme nts POCT GLU (test code = 8861888069) 91 mg/dL 70-110 Lab Interpretation (test cod e = 49819-7) Normal [facility] GLUCOSE (AUTOMATED)2023-03-16 00:57:43* Test Item Value Reference Range Interpretation Comme nts POCT GLU (test code = 3568443822) 91 mg/dL 70-110 Lab Interpretation (test cod e = 99794-1) Normal [facility] GLUCOSE (AUTOMATED)2023-03-15 23:16:08* Test Item Value Reference Range Interpretation Comme nts POCT GLU (test code = 0913358692) 102 mg/dL 70-110 Lab Interpretation (test cod e = 90746-5) Normal [facility] GLUCOSE (AUTOMATED)2023-03-15 23:16:08* Test Item Value Reference Range Interpretation Comme nts POCT GLU (test code = 3902234733) 102 mg/dL 70-110 Lab Interpretation (test cod e = 02380-6) Normal [facility] GLUCOSE (AUTOMATED)2023-03-15 17:25:19* Test Item Value Reference Range Interpretation Comme nts POCT GLU (test code = 6727357343) 93 mg/dL 70-110 Lab Interpretation (test cod e = 23022-1) Normal [facility] GLUCOSE (AUTOMATED)2023-03-15 17:25:19* Test Item Value Reference Range Interpretation Comme nts POCT GLU (test code = 0968539998) 93 mg/dL 70-110 Lab Interpretation (test cod e = 56177-8) Normal [facility] GLUCOSE (AUTOMATED)2023-03-15 09:17:11* Test Item Value Reference Range Interpretation Comme nts POCT GLU (test code = 5751508689) 124 mg/dL 70-110 H Lab Interpretation (test cod e = 38083-5) Abnormal [facility] GLUCOSE (AUTOMATED)2023-03-15 09:17:11* Test Item Value Reference Range Interpretation Comme nts POCT GLU (test code = 8929294474) 124 mg/dL 70-110 H Lab Interpretation (test cod e = 05937-8) Abnormal [facility] GLUCOSE (AUTOMATED)2023-03-15 05:14:10* Test Item Value Reference Range Interpretation Comme nts POCT GLU (test code = 6749077756) 171 mg/dL 70-110 H Lab Interpretation (test cod e = 59030-5) Abnormal [facility] GLUCOSE (AUTOMATED)2023-03-15 05:14:10* Test Item Value Reference Range Interpretation Comme nts POCT GLU (test code = 0278118431) 171 mg/dL 70-110 H Lab Interpretation (test cod e = 43155-4) Abnormal [facility] GLUCOSE (AUTOMATED)2023-03-15 01:02:42* Test Item Value Reference Range Interpretation Comme nts POCT GLU (test code = 6576527737) 198 mg/dL 70-110 H Lab Interpretation (test cod e = 10780-9) Abnormal [facility] GLUCOSE (AUTOMATED)2023-03-15 01:02:42* Test Item Value Reference Range Interpretation Comme nts POCT GLU (test code = 2918467622) 198 mg/dL 70-110 H Lab Interpretation (test cod e = 33778-4) Abnormal [facility] GLUCOSE (AUTOMATED)2023-03-14 18:07:09* Test Item Value Reference Range Interpretation Comme nts POCT GLU (test code = 0382311733) 61 mg/dL 70-110 L Lab Interpretation (test cod e = 69915-2) Abnormal [facility] GLUCOSE (AUTOMATED)2023-03-14 18:07:09* Test Item Value Reference Range Interpretation Comme nts POCT GLU (test code = 9223048005) 61 mg/dL 70-110 L Lab Interpretation (test cod e = 47377-5) Abnormal [facility] GLUCOSE (AUTOMATED)2023-03-14 13:58:58* Test Item Value Reference Range Interpretation Comme nts POCT GLU (test code = 1192429704) 85 mg/dL 70-110 Lab Interpretation (test cod e = 78477-7) Normal [facility] GLUCOSE (AUTOMATED)2023-03-14 13:58:58* Test Item Value Reference Range Interpretation Comme nts POCT GLU (test code = 9401029699) 85 mg/dL 70-110 Lab Interpretation (test cod e = 75822-9) Normal [facility] GLUCOSE (AUTOMATED)2023-03-14 05:00:45* Test Item Value Reference Range Interpretation Comme nts POCT GLU (test code = 6417668037) 161 mg/dL 70-110 H Lab Interpretation (test cod e = 20668-3) Abnormal [facility] GLUCOSE (AUTOMATED)2023-03-14 05:00:45* Test Item Value Reference Range Interpretation Comme nts POCT GLU (test code = 2260511068) 161 mg/dL 70-110 H Lab Interpretation (test cod e = 65793-2) Abnormal [facility] GLUCOSE (AUTOMATED)2023-03-14 02:15:29* Test Item Value Reference Range Interpretation Comme nts POCT GLU (test code = 1091405037) 215 mg/dL 70-110 H Lab Interpretation (test cod e = 75925-4) [facility] 02:15:29* Test Item Value Reference Range Interpretation Comme nts POCT GLU (test code = 0105178754) 215 mg/dL 70-110 H Lab Interpretation (test cod e = 49529-4) Abnormal [facility] GLUCOSE (AUTOMATED)2023-03-13 21:56:44* Test Item Value Reference Range Interpretation Comme nts POCT GLU (test code = 4256055572) 148 mg/dL 70-110 H Lab Interpretation (test cod e = 10169-0) Abnormal [facility] GLUCOSE (AUTOMATED)2023-03-13 21:56:44* Test Item Value Reference Range Interpretation Comme nts POCT GLU (test code = 3977571816) 148 mg/dL 70-110 H Lab Interpretation (test cod e = 35018-8) Abnormal [facility] GLUCOSE (AUTOMATED)2023-03-13 17:36:40* Test Item Value Reference Range Interpretation Comme nts POCT GLU (test code = 4062509450) 178 mg/dL 70-110 H Lab Interpretation (test cod e = 42192-1) Abnormal [facility] GLUCOSE (AUTOMATED)2023-03-13 17:36:40* Test Item Value Reference Range Interpretation Comme nts POCT GLU (test code = 0068274804) 178 mg/dL 70-110 H Lab Interpretation (test cod e = 73506-5) Abnormal [facility] GLUCOSE (AUTOMATED)2023-03-13 14:50:11* Test Item Value Reference Range Interpretation Comme nts POCT GLU (test code = 0174976939) 162 mg/dL 70-110 H Lab Interpretation (test cod e = 99699-4) Abnormal [facility] GLUCOSE (AUTOMATED)2023-03-13 14:50:11* Test Item Value Reference Range Interpretation Comme nts POCT GLU (test code = 1885794665) 162 mg/dL 70-110 H Lab Interpretation (test cod e = 66870-7) Abnormal [facility] WITH [id number] 09:11:29* Test Item Value Reference Range Interpretation Comme nts WBC (test code = 6690-2) 17.65 See_Comment H [Automated messa ge] The system which generated this result transmitted reference range: 4.20 - 10.70 10*3/?L. The reference range was not used to interpret this result as normal/abnormal. RBC (test code = 789-8) 2.82 See_Comment L [Automated messa ge] The system which generated this result transmitted reference range: 4.26 - 5.52 10*6/?L. The reference range was not used to interpret this result as normal/abnormal. HGB (test code = 718-7) 7.9 g/dL 12.2-16.4 L HCT (test code = 4544-3) 25.6 % 38.4-49.3 L MCV (test code = 787-2) 90.8 fL 81.7-95.6 MCH (test code = 785-6) 28.0 pg 26.1-32.7 MCHC (test code = 786-4) 30.9 g/dL 31.2-35.0 L RDW-SD (test code = 62579-5) 70.1 fL 38.5-51.6 H RDW-CV (test code = 788-0) 21.3 % 12.1-15.4 H PLT (test code = 777-3) 95 See_Comment L [Automated [employer]] The system which generated this result transmitted reference range: 150 - 328 10*3/?L. The reference range was not used to interpret this result as normal/abnormal. MPV (test code = 51156-2) Not Measured IPF % (test code = 1187741325) 16.7 % 1.2-10.7 H Platelet count measured by fluorescence method. NRBC/100 WBC (test code = 8856722206) 0.0 See_Comment [Automated [employer] ssage] The system which generated this result transmitted reference range: 0.0 - 10.0 /100 WBCs. The reference range was not used to interpret this result as normal/abnormal. NRBC x10^3 (test code = 3034175751) See_Comment [Automated messa ge] The system which generated this result transmitted reference range: 10*3/?L. The reference range was not used to interpret this result as normal/abnormal. GRAN MAT (NEUT) % (test code = 770-8) 82.4 % IMM GRAN % (test code = 6179819977) 0.80 % LYMPH % (test code = 736-9) 7.9 % MONO % (test code = 5905-5) 7.1 % EOS % (test code = 713-8) 1.6 % BASO % (test code = 706-2) 0.2 % GRAN MAT x10^3(ANC) (test code = 7647833839) 14.54 10*3/uL 1.99-6.95 H IMM GRAN x10^3 (test code = 1963480350) 0.14 10*3/uL 0.00-0.06 H LYMPH x10^3 (test code = 731-0) 1.39 10*3/uL 1.09-3.23 MONO x10^3 (test code = 742-7) 1.26 10*3/uL 0.36-1.02 H EOS x10^3 (test code = 711-2) 0.29 10*3/uL 0.06-0.53 BASO x10^3 (test code = 704-7) 0.03 10*3/uL 0.01-0.09 BASO STIPPLING (test code = 703-9) Present A Lab Interpretation (test code = 32063-6) Abnormal [facility] WITH [id number] 09:11:29* Test Item Value Reference Range Interpretation Comme nts WBC (test code = 6690-2) 17.65 See_Comment H [Automated messa ge] The system which generated this result transmitted reference range: 4.20 - 10.70 10*3/?L. The reference range was not used to interpret this result as normal/abnormal. RBC (test code = 789-8) 2.82 See_Comment L [Automated messa ge] The system which generated this result transmitted reference range: 4.26 - 5.52 10*6/?L. The reference range was not used to interpret this result as normal/abnormal. HGB (test code = 718-7) 7.9 g/dL 12.2-16.4 L HCT (test code = 4544-3) 25.6 % 38.4-49.3 L MCV (test code = 787-2) 90.8 fL 81.7-95.6 MCH (test code = 785-6) 28.0 pg 26.1-32.7 MCHC (test code = 786-4) 30.9 g/dL 31.2-35.0 L RDW-SD (test code = 06108-1) 70.1 fL 38.5-51.6 H RDW-CV (test code = 788-0) 21.3 % 12.1-15.4 H PLT (test code = 777-3) 95 See_Comment L [Automated [employer]] The system which generated this result transmitted reference range: 150 - 328 10*3/?L. The reference range was not used to interpret this result as normal/abnormal. MPV (test code = 62276-7) Not Measured IPF % (test code = 5246123783) 16.7 % 1.2-10.7 H Platelet count measured by fluorescence method. NRBC/100 WBC (test code = 2059065728) 0.0 See_Comment [Automated [employer] ssage] The system which generated this result transmitted reference range: 0.0 - 10.0 /100 WBCs. The reference range was not used to interpret this result as normal/abnormal. NRBC x10^3 (test code = 1242090442) See_Comment [Automated [employer]] The system which generated this result transmitted reference range: 10*3/?L. The reference range was not used to interpret this result as normal/abnormal. GRAN MAT (NEUT) % (test code = 770-8) 82.4 % IMM GRAN % (test code = 1101989420) 0.80 % LYMPH % (test code = 736-9) 7.9 % MONO % (test code = 5905-5) 7.1 % EOS % (test code = 713-8) 1.6 % BASO % (test code = 706-2) 0.2 % GRAN MAT x10^3(ANC) (test code = 2544596236) 14.54 10*3/uL 1.99-6.95 H IMM GRAN x10^3 (test code = 6617624533) 0.14 10*3/uL 0.00-0.06 H LYMPH x10^3 (test code = 731-0) 1.39 10*3/uL 1.09-3.23 MONO x10^3 (test code = 742-7) 1.26 10*3/uL 0.36-1.02 H EOS x10^3 (test code = 711-2) 0.29 10*3/uL 0.06-0.53 BASO x10^3 (test code = 704-7) 0.03 10*3/uL 0.01-0.09 BASO STIPPLING (test code = 703-9) Present A Lab Interpretation (test code = 17759-5) [facility]* Test Item Value Reference Range Interpretation Comme nts PHOSPHORUS (test code = 9356372257) 4.7 mg/dL 2.5-5.0 Lab Interpretation (test cod e = 23333-7) [facility] 08:22:42* Test Item Value Reference Range Interpretation Comme nts PHOSPHORUS (test code = 6527860298) 4.7 mg/dL 2.5-5.0 Lab Interpretation (test cod e = 75921-9) [facility] (NA, K, CL, CO2, GLUCOSE, BUN, CREATININE, CA)2023-03-13 08:22:41* Test Item Value Reference Range Interpretation Comme nts NA (test code = 6718756855) 135 mmol/L 135-145 K (test code = 8693864269) 3.8 mmol/L 3.5-5.0 CL (test code = 6979628204) 100 mmol/L 98-108 CO2 TOTAL (test code = 3026785802) 23 mmol/L 23-31 AGAP (test code = 5751439093) 12 2-16 BUN (test code = 8997677942) 62 mg/dL 7-23 H GLUCOSE (test code = 3367372655) 157 mg/dL 70-110 H CREATININE (test code = 9478323872) 3.65 mg/dL 0.60-1.25 H CALCIUM (test code = 6228811000) 8.0 mg/dL 8.6-10.6 L eGFR (test code = 9204459944) 17.1 mL/min/1.73m2 MIKAYLA (test code = MIKAYLA) Association of [...] or abnormalities in imaging tests). Lab Interpretation (test code = 53290-7) [facility] 08:22:41* Test Item Value Reference Range Interpretation Comme nts MAGNESIUM (test code = 5980044110) 2.1 mg/dL 1.7-2.4 Lab Interpretation (test cod e = 36971-6) [facility] (NA, K, CL, CO2, GLUCOSE, BUN, CREATININE, CA)2023-03-13 08:22:41* Test Item Value Reference Range Interpretation Comme nts NA (test code = 9075102587) 135 mmol/L 135-145 K (test code = 1221697922) 3.8 mmol/L 3.5-5.0 CL (test code = 9712637986) 100 mmol/L 98-108 CO2 TOTAL (test code = 7328481486) 23 mmol/L 23-31 AGAP (test code = 1875122680) 12 2-16 BUN (test code = 5659922758) 62 mg/dL 7-23 H GLUCOSE (test code = 8779139623) 157 mg/dL 70-110 H CREATININE (test code = 5218626748) 3.65 mg/dL 0.60-1.25 H CALCIUM (test code = 7810198498) 8.0 mg/dL 8.6-10.6 L eGFR (test code = 9754147461) 17.1 mL/min/1.73m2 MIKAYLA (test code = MIKAYLA) Association of [...] or abnormalities in imaging tests). Lab Interpretation (test code = 11809-8) [facility] 08:22:41* Test Item Value Reference Range Interpretation Comme nts MAGNESIUM (test code = 6897415133) 2.1 mg/dL 1.7-2.4 Lab Interpretation (test cod e = 80263-9) Normal [facility] GLUCOSE (AUTOMATED)2023-03-13 04:16:43* Test Item Value Reference Range Interpretation Comme nts POCT GLU (test code = 2107700838) 167 mg/dL 70-110 H Notified Provide r Lab Interpretation (test code = 35059-6) Abnormal [facility] GLUCOSE (AUTOMATED)2023-03-13 04:16:43* Test Item Value Reference Range Interpretation Comme nts POCT GLU (test code = 5706331125) 167 mg/dL 70-110 H Notified Provide r Lab Interpretation (test code = 63963-0) Abnormal [facility] GLUCOSE (AUTOMATED)2023-03-13 01:32:38* Test Item Value Reference Range Interpretation Comme nts POCT GLU (test code = 5152316951) 141 mg/dL 70-110 H Notified Provide r Lab Interpretation (test code = 51731-7) Abnormal [facility] GLUCOSE (AUTOMATED)2023-03-13 01:32:38* Test Item Value Reference Range Interpretation Comme nts POCT GLU (test code = 9606352836) 141 mg/dL 70-110 H Notified Provide r Lab Interpretation (test code = 25372-3) [facility] [id number] 01:02:05* Test Item Value Reference Range Interpretation Comme nts Blood Culture-Aerobic (test code = 66142-7) No organisms isolated No growth Previous preliminary verified result was Culture In Progress on 03/07/2023 at 2302 CDTPrevious preliminary verified result was No growth at 24 hours on 03/08/2023 at 2000 CDTPrevious preliminary verified result was No growth at 48 hours on 03/09/2023 at 2001 CDTPrevious preliminary verified result was No growth at 72 hours on 03/10/2023 at 2000 CDT Blood Culture-Anaerobic (test code = 16497-7) No organisms isolated No growth Previous preliminary verified result was Culture In Progress on 03/07/2023 at 2302 CDTPrevious preliminary verified result was No growth at 24 hours on 03/08/2023 at 2000 CDTPrevious preliminary verified result was No growth at 48 hours on 03/09/2023 at 2001 CDTPrevious preliminary verified result was No growth at 72 hours on 03/10/2023 at 2000 CDT Lab Interpretation (test code = 10805-6) Normal [facility] CULTURE [id number] 01:02:05* Test Item Value Reference Range Interpretation Comme nts Blood Culture-Aerobic (test code = 67245-9) No organisms isolated No growth Previous preliminary verified result was Culture In Progress on 03/07/2023 at 2302 CDTPrevious preliminary verified result was No growth at 24 hours on 03/08/2023 at 2000 CDTPrevious preliminary verified result was No growth at 48 hours on 03/09/2023 at 2001 CDTPrevious preliminary verified result was No growth at 72 hours on 03/10/2023 at 2000 T Blood Culture-Anaerobic (test code = 20796-6) No organisms isolated No growth Previous preliminary verified result was Culture In Progress on 03/07/2023 at 2302 CDTPrevious preliminary verified result was No growth at 24 hours on 03/08/2023 at 2000 CDTPrevious preliminary verified result was No growth at 48 hours on 03/09/2023 at 2001 CDTPrevious preliminary verified result was No growth at 72 hours on 03/10/2023 at 2000 T Lab Interpretation (test code = 68472-8) Normal [facility] CULTURE [id number] 01:02:05* Test Item Value Reference Range Interpretation Comme nts Blood Culture-Aerobic (test code = 08631-9) No organisms isolated No growth Previous preliminary verified result was Culture In Progress on 03/07/2023 at 2302 CDTPrevious preliminary verified result was No growth at 24 hours on 03/08/2023 at 2000 CDTPrevious preliminary verified result was No growth at 48 hours on 03/09/2023 at 2001 CDTPrevious preliminary verified result was No growth at 72 hours on 03/10/2023 at 2000 CDT Blood Culture-Anaerobic (test code = 26717-5) No organisms isolated No growth Previous preliminary verified result was Culture In Progress on 03/07/2023 at 2302 CDTPrevious preliminary verified result was No growth at 24 hours on 03/08/2023 at 2000 CDTPrevious preliminary verified result was No growth at 48 hours on 03/09/2023 at 2001 CDTPrevious preliminary verified result was No growth at 72 hours on 03/10/2023 at 2000 CDT Lab Interpretation (test code = 11380-7) Normal [facility] CULTURE [id number] 01:02:05* Test Item Value Reference Range Interpretation Comme nts Blood Culture-Aerobic (test code = 09856-9) No organisms isolated No growth Previous preliminary verified result was Culture In Progress on 03/07/2023 at 2302 CDTPrevious preliminary verified result was No growth at 24 hours on 03/08/2023 at 2000 CDTPrevious preliminary verified result was No growth at 48 hours on 03/09/2023 at 2001 CDTPrevious preliminary verified result was No growth at 72 hours on 03/10/2023 at [facility]-An[facility]erobic (test code = 64711-8) No organisms isolated No growth Previous preliminary verified result was Culture In Progress on 03/07/2023 at 2302 CDTPrevious preliminary verified result was No growth at 24 hours on 03/08/2023 at 2000 CDTPrevious preliminary verified result was No growth at 48 hours on 03/09/2023 at 2001 CDTPrevious preliminary verified result was No growth at 72 hours on 03/10/2023 at 2000 CDT Lab Interpretation (test code = 83771-6) Normal [facility] GLUCOSE (AUTOMATED)2023-03-12 22:19:09* Test Item Value Reference Range Interpretation Comme nts POCT GLU (test code = 9098760673) 187 mg/dL 70-110 H Lab Interpretation (test cod e = 91641-4) Abnormal [facility] GLUCOSE (AUTOMATED)2023-03-12 22:19:09* Test Item Value Reference Range Interpretation Comme nts POCT GLU (test code = 9396488150) 187 mg/dL 70-110 H Lab Interpretation (test cod e = 34620-9) Abnormal [facility] GLUCOSE (AUTOMATED)2023-03-12 18:29:03* Test Item Value Reference Range Interpretation Comme nts POCT GLU (test code = 9942575812) 168 mg/dL 70-110 H Lab Interpretation (test cod e = 11406-0) Abnormal [facility] GLUCOSE (AUTOMATED)2023-03-12 18:29:03* Test Item Value Reference Range Interpretation Comme nts POCT GLU (test code = 7718002818) 168 mg/dL 70-110 H Lab Interpretation (test cod e = 54075-3) Abnormal [facility] GLUCOSE (AUTOMATED)2023-03-12 13:01:00* Test Item Value Reference Range Interpretation Comme nts POCT GLU (test code = 3458253855) 160 mg/dL 70-110 H Lab Interpretation (test cod e = 71533-8) Abnormal [facility] GLUCOSE (AUTOMATED)2023-03-12 13:01:00* Test Item Value Reference Range Interpretation Comme nts POCT GLU (test code = 6477394408) 160 mg/dL 70-110 H Lab Interpretation (test cod e = 41670-0) Abnormal [facility] WITH [id number] 09:37:32* Test Item Value Reference Range Interpretation Comme nts WBC (test code = 6690-2) 21.24 See_Comment H [Automated messa ge] The system which generated this result transmitted reference range: 4.20 - 10.70 10*3/?L. The reference range was not used to interpret this result as normal/abnormal. RBC (test code = 789-8) 3.03 See_Comment L [Automated messa ge] The system which generated this result transmitted reference range: 4.26 - 5.52 10*6/?L. The reference range was not used to interpret this result as normal/abnormal. HGB (test code = 718-7) 8.6 g/dL 12.2-16.4 L HCT (test code = 4544-3) 27.1 % 38.4-49.3 L MCV (test code = 787-2) 89.4 fL 81.7-95.6 MCH (test code = 785-6) 28.4 pg 26.1-32.7 MCHC (test code = 786-4) 31.7 g/dL 31.2-35.0 RDW-SD (test code = 26365-5) 72.3 fL 38.5-51.6 H RDW-CV (test code = 788-0) 22.2 % 12.1-15.4 H PLT (test code = 777-3) 86 See_Comment L [Automated [employer]] The system which generated this result transmitted reference range: 150 - 328 10*3/?L. The reference range was not used to interpret this result as normal/abnormal. MPV (test code = 05267-5) Not Measured IPF % (test code = 6800024927) 20.3 % 1.2-10.7 H Platelet count measured by fluorescence method. NRBC/100 WBC (test code = 1727838784) 0.0 See_Comment [Automated [employer] [place] ssage] The system which generated this result transmitted reference range: 0.0 - 10.0 /100 WBCs. The reference range was not used to interpret this result as normal/abnormal. NRBC x10^3 (test code = 2710207111) See_Comment [Automated [employer]] The system which generated this result transmitted reference range: 10*3/?L. The reference range was not used to interpret this result as normal/abnormal. GRAN MAT (NEUT) % (test code = 770-8) 84.3 % IMM GRAN % (test code = 4588278772) 1.00 % LYMPH % (test code = 736-9) 5.6 % MONO % (test code = 5905-5) 6.8 % EOS % (test code = 713-8) 2.2 % BASO % (test code = 706-2) 0.1 % GRAN MAT x10^3(ANC) (test code = 7691505678) 17.88 10*3/uL 1.99-6.95 H IMM GRAN x10^3 (test code = 6057146005) 0.22 10*3/uL 0.00-0.06 H LYMPH x10^3 (test code = 731-0) 1.19 10*3/uL 1.09-3.23 MONO x10^3 (test code = 742-7) 1.45 10*3/uL 0.36-1.02 H EOS x10^3 (test code = 711-2) 0.47 10*3/uL 0.06-0.53 BASO x10^3 (test code = 704-7) 0.03 10*3/uL 0.01-0.09 BASO STIPPLING (test code = 703-9) Present A Lab Interpretation (test code = 63414-0) Abnormal [facility] WITH [id number] 09:37:32* Test Item Value Reference Range Interpretation Comme nts WBC (test code = 6690-2) 21.24 See_Comment H [Automated messa ge] The system which generated this result transmitted reference range: 4.20 - 10.70 10*3/?L. The reference range was not used to interpret this result as normal/abnormal. RBC (test code = 789-8) 3.03 See_Comment L [Automated messa ge] The system which generated this result transmitted reference range: 4.26 - 5.52 10*6/?L. The reference range was not used to interpret this result as normal/abnormal. HGB (test code = 718-7) 8.6 g/dL 12.2-16.4 L HCT (test code = 4544-3) 27.1 % 38.4-49.3 L MCV (test code = 787-2) 89.4 fL 81.7-95.6 MCH (test code = 785-6) 28.4 pg 26.1-32.7 MCHC (test code = 786-4) 31.7 g/dL 31.2-35.0 RDW-SD (test code = 77323-4) 72.3 fL 38.5-51.6 H RDW-CV (test code = 788-0) 22.2 % 12.1-15.4 H PLT (test code = 777-3) 86 See_Comment L [Automated messa ge] The system which generated this result transmitted reference range: 150 - 328 10*3/?L. The reference range was not used to interpret this result as normal/abnormal. MPV (test code = 46279-3) Not Measured IPF % (test code = 0363787743) 20.3 % 1.2-10.7 H Platelet count measured by fluorescence method. NRBC/100 WBC (test code = 3181373107) 0.0 See_Comment [Automated [place] ssage] The system which generated this result transmitted reference range: 0.0 - 10.0 /100 WBCs. The reference range was not used to interpret this result as normal/abnormal. NRBC x10^3 (test code = 6607634656) See_Comment [Automated messa ge] The system which generated this result transmitted reference range: 10*3/?L. The reference range was not used to interpret this result as normal/abnormal. GRAN MAT (NEUT) % (test code = 770-8) 84.3 % IMM GRAN % (test code = 1913430466) 1.00 % LYMPH % (test code = 736-9) 5.6 % MONO % (test code = 5905-5) 6.8 % EOS % (test code = 713-8) 2.2 % BASO % (test code = 706-2) 0.1 % GRAN MAT x10^3(ANC) (test code = 8511604168) 17.88 10*3/uL 1.99-6.95 H IMM GRAN x10^3 (test code = 1487464816) 0.22 10*3/uL 0.00-0.06 H LYMPH x10^3 (test code = 731-0) 1.19 10*3/uL 1.09-3.23 MONO x10^3 (test code = 742-7) 1.45 10*3/uL 0.36-1.02 H EOS x10^3 (test code = 711-2) 0.47 10*3/uL 0.06-0.53 BASO x10^3 (test code = 704-7) 0.03 10*3/uL 0.01-0.09 BASO STIPPLING (test code = 703-9) Present A Lab Interpretation (test code = 94279-2) [facility] Test Item Value Reference Range Interpretation Comme nts MAGNESIUM (test code = 6266631949) 1.7 mg/dL 1.7-2.4 Lab Interpretation (test cod e = 81462-3) [facility]17* Test Item Value Reference Range Interpretation Comme nts PHOSPHORUS (test code = 9618517935) 3.8 mg/dL 2.5-5.0 Lab Interpretation (test cod e = 07859-7) [facility] 09:27:17* Test Item Value Reference Range Interpretation Comme nts MAGNESIUM (test code = 8590117387) 1.7 mg/dL 1.7-2.4 Lab Interpretation (test cod e = 71489-9) [facility] 09:27:17* Test Item Value Reference Range Interpretation Comme nts PHOSPHORUS (test code = 8235447443) 3.8 mg/dL 2.5-5.0 Lab Interpretation (test cod e = 72557-5) [facility]27:16* Test Item Value Reference Range Interpretation Comme nts CALCIUM (test code = 6572714013) 8.0 mg/dL 8.6-10.6 L Lab Interpretation (test cod e = 99582-1) [facility] (NA, K, CL, CO2, GLUCOSE, BUN, CREATININE, CA)2023-03-12 09:27:16* Test Item Value Reference Range Interpretation Comme nts NA (test code = 7674516200) 135 mmol/L 135-145 K (test code = 0390293597) 3.5 mmol/L 3.5-5.0 CL (test code = 2408168755) 102 mmol/L 98-108 CO2 TOTAL (test code = 6651706674) 25 mmol/L 23-31 AGAP (test code = 7874187734) 8 2-16 BUN (test code = 0798295708) 43 mg/dL 7-23 H GLUCOSE (test code = 7123628616) 101 mg/dL 70-110 CREATININE (test code = 2667344332) 2.44 mg/dL 0.60-1.25 H CALCIUM (test code = 5107446985) 8.0 mg/dL 8.6-10.6 L eGFR (test code = 3725025015) 27.1 mL/min/1.73m2 MIKAYLA (test code = MIKAYLA) Association of [...] or abnormalities in imaging tests). Lab Interpretation (test code = 23300-3) [facility]:27:16* Test Item Value Reference Range Interpretation Comme nts CALCIUM (test code = 1124475924) 8.0 mg/dL 8.6-10.6 L Lab Interpretation (test cod e = 01890-9) [facility] (NA, K, CL, CO2, GLUCOSE, BUN, CREATININE, CA)2023-03-12 09:27:16* Test Item Value Reference Range Interpretation Comme nts NA (test code = 3675379051) 135 mmol/L 135-145 K (test code = 4686663963) 3.5 mmol/L 3.5-5.0 CL (test code = 6968974811) 102 mmol/L 98-108 CO2 TOTAL (test code = 4348507448) 25 mmol/L 23-31 AGAP (test code = 7334198092) 8 2-16 BUN (test code = 6776939162) 43 mg/dL 7-23 H GLUCOSE (test code = 4049874721) 101 mg/dL 70-110 CREATININE (test code = 2361848725) 2.44 mg/dL 0.60-1.25 H CALCIUM (test code = 2536537669) 8.0 mg/dL 8.6-10.6 L eGFR (test code = 8157197481) 27.1 mL/min/1.73m2 MIKAYLA (test code = MIKAYLA) Association of [...] or abnormalities in imaging tests). Lab Interpretation (test code = 41697-0) Abnormal [facility] [id number] 09:27:16* Test Item Value Reference Range Interpretation Comme nts CALCIUM (test code = 1670943596) 8.0 mg/dL 8.6-10.6 L Lab Interpretation (test cod e = 44270-6) [facility]23-[facility]-12 08:46:08* Test Item Value Reference Range Interpretation Comme nts POCT GLU (test code = 9748889930) 106 mg/dL 70-110 Notified Provide r Lab Interpretation (test code = 96993-6) Normal [facility] GLUCOSE (AUTOMATED)2023-03-12 08:46:08* Test Item Value Reference Range Interpretation Comme nts POCT GLU (test code = 3898186300) 106 mg/dL 70-110 Notified Provide r Lab Interpretation (test code = 14800-1) Normal [facility] GLUCOSE (AUTOMATED)2023-03-12 04:14:13* Test Item Value Reference Range Interpretation Comme nts POCT GLU (test code = 8416244267) 65 mg/dL 70-110 L Lab Interpretation (test cod e = 14756-5) Abnormal [facility] GLUCOSE (AUTOMATED)2023-03-12 04:14:13* Test Item Value Reference Range Interpretation Comme nts POCT GLU (test code = 5814671957) 65 mg/dL 70-110 L Lab Interpretation (test cod e = 68454-8) Abnormal [facility] GLUCOSE (AUTOMATED)2023-03-12 01:48:02* Test Item Value Reference Range Interpretation Comme nts POCT GLU (test code = 8992510202) 46 mg/dL 70-110 LL Notified Provide r Lab Interpretation (test code = 28525-2) Abnormal [facility] GLUCOSE (AUTOMATED)2023-03-12 01:48:02* Test Item Value Reference Range Interpretation Comme nts POCT GLU (test code = 0389816570) 194 mg/dL 70-110 H Notified Provide r Lab Interpretation (test code = 54123-5) Abnormal [facility] GLUCOSE (AUTOMATED)2023-03-12 01:48:02* Test Item Value Reference Range Interpretation Comme nts POCT GLU (test code = 3570397948) 46 mg/dL 70-110 LL Notified Provide r Lab Interpretation (test code = 66318-2) Abnormal [facility] GLUCOSE (AUTOMATED)2023-03-12 01:48:02* Test Item Value Reference Range Interpretation Comme nts POCT GLU (test code = 9154355090) 194 mg/dL 70-110 H Notified Provide r Lab Interpretation (test code = 75737-4) Abnormal [facility] GLUCOSE (AUTOMATED)2023-03-11 21:15:31* Test Item Value Reference Range Interpretation Comme nts POCT GLU (test code = 9517465675) 121 mg/dL 70-110 H Lab Interpretation (test cod e = 24484-0) [facility] 21:15:31* Test Item Value Reference Range Interpretation Comme nts POCT GLU (test code = 2159950366) 121 mg/dL 70-110 H Lab Interpretation (test cod e = 90942-9) Abnormal [facility] GLUCOSE (AUTOMATED)2023-03-11 17:47:38* Test Item Value Reference Range Interpretation Comme nts POCT GLU (test code = 7544208450) 159 mg/dL 70-110 H Lab Interpretation (test cod e = 19346-4) Abnormal [facility] GLUCOSE (AUTOMATED)2023-03-11 17:47:38* Test Item Value Reference Range Interpretation Comme nts POCT GLU (test code = 1028097828) 159 mg/dL 70-110 H Lab Interpretation (test cod e = 09555-5) Abnormal [facility] GLUCOSE (AUTOMATED)2023-03-11 13:22:07* Test Item Value Reference Range Interpretation Comme nts POCT GLU (test code = 9589796866) 212 mg/dL 70-110 H Lab Interpretation (test cod e = 43805-2) [facility]-11 13:22:07* Test Item Value Reference Range Interpretation Comme nts POCT GLU (test code = 7928608915) 212 mg/dL 70-110 H Lab Interpretation (test cod e = 59795-7) [facility] 09:09:00* Test Item Value Reference Range Interpretation Comme nts POCT GLU (test code = 5495108702) 180 mg/dL 70-110 H Lab Interpretation (test cod e = 52432-8) Abnormal [facility] GLUCOSE (AUTOMATED)2023-03-11 09:09:00* Test Item Value Reference Range Interpretation Comme nts POCT GLU (test code = 0725895250) 180 mg/dL 70-110 H Lab Interpretation (test cod e = 45209-9) Abnormal [facility] GLUCOSE (AUTOMATED)2023-03-11 05:49:00* Test Item Value Reference Range Interpretation Comme nts POCT GLU (test code = 7194965757) 186 mg/dL 70-110 H Lab Interpretation (test cod e = 29714-9) Abnormal [facility] GLUCOSE (AUTOMATED)2023-03-11 05:49:00* Test Item Value Reference Range Interpretation Comme nts POCT GLU (test code = 6243337049) 186 mg/dL 70-110 H Lab Interpretation (test cod e = 99395-0) Abnormal [facility] GLUCOSE (AUTOMATED)2023-03-11 01:20:45* Test Item Value Reference Range Interpretation Comme nts POCT GLU (test code = 1999406681) 186 mg/dL 70-110 H Lab Interpretation (test cod e = 58385-4) Abnormal [facility] GLUCOSE (AUTOMATED)2023-03-11 01:20:45* Test Item Value Reference Range Interpretation Comme nts POCT GLU (test code = 3489427240) 186 mg/dL 70-110 H Lab Interpretation (test cod e = 11294-1) Abnormal [facility] GLUCOSE (AUTOMATED)2023-03-10 22:02:02* Test Item Value Reference Range Interpretation Comme nts POCT GLU (test code = 3856638423) 202 mg/dL 70-110 H Lab Interpretation (test cod e = 97099-5) Abnormal [facility] GLUCOSE (AUTOMATED)2023-03-10 22:02:02* Test Item Value Reference Range Interpretation Comme nts POCT GLU (test code = 8821616035) 202 mg/dL 70-110 H Lab Interpretation (test cod e = 02455-9) [facility] RBC (in units), 1 Units 2023-03-10 19:23:48* Test Item Value Reference Range Interpretation Comme nts Cross Match Result (test code = 4409) Compatible ISBT Blood Type Code (test code = 379090) 5100 Unit Blood Type (test code = 4410) O Pos Unit Number (test code = 4411) [id number] Blood Expiration Date & Time (test code = 677950) 040688663212 Status Information (test code = 4412) Issued Product Identification (test code = 4413) Red Blood Cells Product Code (test code = 4414) [id number] Performed at [facility] Blood [address] Free: [phone] No. [id number] [facility] RBC (in units), 1 Units 2023-03-10 19:23:48* Test Item Value Reference Range Interpretation Comme nts Cross Match Result (test code = 4409) Compatible ISBT Blood Type Code (test code = 083540) 5100 Unit Blood Type (test code = 4410) O Pos Unit Number (test code = 4411) [id number] Blood Expiration Date & Time (test code = 113897) 477440987605 Status Information (test code = 4412) Issued Product Identification (test code = 4413) Red Blood Cells Product Code (test code = 4414) [id number] Performed at [facility] Blood [address] Free: [phone] No. [id number] [facility] Packed RBC (in units), 1 Units 2023-03-10 19:23:48* Test Item Value Reference Range Interpretation Comme nts Cross Match Result (test code = 4409) Compatible ISBT Blood Type Code (test code = 036579) 5100 Unit Blood Type (test code = 4410) O Pos Unit Number (test code = 4411) [id number] Blood Expiration Date & Time (test code = 909921) 206379387981 Status Information (test code = 4412) Issued Product Identification (test code = 4413) Red Blood Cells Product Code (test code = 4414) [id number] Performed at [facility] Blood [address] Free: [phone] No. [id number] [facility]23-[facility]-10 17:19:28* Test Item Value Reference Range Interpretation Comme nts POCT GLU (test code = 9068704714) 172 mg/dL 70-110 H Lab Interpretation (test cod e = 03290-9) Abnormal [facility] GLUCOSE (AUTOMATED)2023-03-10 17:19:28* Test Item Value Reference Range Interpretation Comme nts POCT GLU (test code = 6339981499) 172 mg/dL 70-110 H Lab Interpretation (test cod e = 90813-8) Abnormal [facility] GLUCOSE (AUTOMATED)2023-03-10 12:50:41* Test Item Value Reference Range Interpretation Comme nts POCT GLU (test code = 5054938028) 166 mg/dL 70-110 H Lab Interpretation (test cod e = 68885-3) Abnormal [facility] GLUCOSE (AUTOMATED)2023-03-10 12:50:41* Test Item Value Reference Range Interpretation Comme nts POCT GLU (test code = 3993830916) 166 mg/dL 70-110 H Lab Interpretation (test cod e = 55868-4) Abnormal [facility] GLUCOSE (AUTOMATED)2023-03-10 05:17:34* Test Item Value Reference Range Interpretation Comme nts POCT GLU (test code = 5033939862) 190 mg/dL 70-110 H Lab Interpretation (test cod e = 93434-1) Abnormal [facility] GLUCOSE (AUTOMATED)2023-03-10 05:17:34* Test Item Value Reference Range Interpretation Comme nts POCT GLU (test code = 9636379012) 190 mg/dL 70-110 H Lab Interpretation (test cod e = 89435-7) Abnormal [facility] Packed RBC (in units), 1 Units 2023-03-10 02:33:25* Test Item Value Reference Range Interpretation Comme nts Cross Match Result (test code = 4409) Compatible ISBT Blood Type Code (test code = 674284) 5100 Unit Blood Type (test code = 4410) O Pos Unit Number (test code = 4411) [id number] Blood Expiration Date & Time (test code = 663695) 512171957738 Status Information (test code = 4412) Issued Product Identification (test code = 4413) Red Blood Cells Product Code (test code = 4414) [id number] Performed at [facility] Blood [address] [address] Free: [phone] No. [id number] [facility] Packed RBC (in units), 1 Units 2023-03-10 02:33:25* Test Item Value Reference Range Interpretation Comme nts Cross Match Result (test code = 4409) Compatible ISBT Blood Type Code (test code = 234748) 5100 Unit Blood Type (test code = 4410) O Pos Unit Number (test code = 4411) [id number] Blood Expiration Date & Time (test code = 730041) 226808275317 Status Information (test code = 4412) Issued Product Identification (test code = 4413) Red Blood Cells Product Code (test code = 4414) [id number] Performed at [facility] Blood [address] [address] Free: [phone] No. [id number] [facility] GLUCOSE (AUTOMATED)2023-03-10 01:07:18* Test Item Value Reference Range Interpretation Comme nts POCT GLU (test code = 3822799672) 218 mg/dL 70-110 H Lab Interpretation (test cod e = 03100-3) Abnormal [facility] GLUCOSE (AUTOMATED)2023-03-10 01:07:18* Test Item Value Reference Range Interpretation Comme nts POCT GLU (test code = 9589130911) 218 mg/dL 70-110 H Lab Interpretation (test cod e = 15274-5) Abnormal [facility] GLUCOSE (AUTOMATED)2023-03-09 21:50:36* Test Item Value Reference Range Interpretation Comme nts POCT GLU (test code = 6439116252) 238 mg/dL 70-110 H Lab Interpretation (test cod e = 40689-5) Abnormal [facility] GLUCOSE (AUTOMATED)2023-03-09 21:50:36* Test Item Value Reference Range Interpretation Comme nts POCT GLU (test code = 8020494732) 238 mg/dL 70-110 H Lab Interpretation (test cod e = 89050-3) Abnormal [facility] WITHOUT [id number] 17:56:39* Test Item Value Reference Range Interpretation Comme nts WBC (test code = 6690-2) 18.79 See_Comment H [Automated messa ge] The system which generated this result transmitted reference range: 4.20 - 10.70 10*3/?L. The reference range was not used to interpret this result as normal/abnormal. RBC (test code = 789-8) 2.48 See_Comment L [Automated message] The system which generated this result transmitted reference range: 4.26 - 5.52 10*6/?L. The reference range was not used to interpret this result as normal/abnormal. HGB (test code = 718-7) 7.0 g/dL 12.2-16.4 L HCT (test code = 4544-3) 23.0 % 38.4-49.3 L MCH (test code = 785-6) 28.2 pg 26.1-32.7 MCV (test code = 787-2) 92.7 fL 81.7-95.6 MCHC (test code = 786-4) 30.4 g/dL 31.2-35.0 L PLT (test code = 777-3) 58 See_Comment L [Automated message] The system which generated this result transmitted reference range: 150 - 328 10*3/?L. The reference range was not used to interpret this result as normal/abnormal. MPV (test code = 53209-7) Not Measured RDW-CV (test code = 788-0) 23.4 % 12.1-15.4 H RDW-SD (test code = 04376-0) 77.1 fL 38.5-51.6 H NRBC x10^3 (test code = 8124474046) See_Comment [Automated messa ge] The system which generated this result transmitted reference range: 10*3/?L. The reference range was not used to interpret this result as normal/abnormal. NRBC/100 WBC (test code = 8646927638) 0.0 See_Comment [Automated messa ge] The system which generated this result transmitted reference range: 0.0 - 10.0 /100 WBCs. The reference range was not used to interpret this result as normal/abnormal. IPF % (test code = 3219043275) 16.5 % 1.2-10.7 H Platelet count measured by fluorescence method. Lab Interpretation (test code = 36882-1) Abnormal [facility] WITHOUT [id number] 17:56:39* Test Item Value Reference Range Interpretation Comme nts WBC (test code = 6690-2) 18.79 See_Comment H [Automated messa ge] The system which generated this result transmitted reference range: 4.20 - 10.70 10*3/?L. The reference range was not used to interpret this result as normal/abnormal. RBC (test code = 789-8) 2.48 See_Comment L [Automated message] The system which generated this result transmitted reference range: 4.26 - 5.52 10*6/?L. The reference range was not used to interpret this result as normal/abnormal. HGB (test code = 718-7) 7.0 g/dL 12.2-16.4 L HCT (test code = 4544-3) 23.0 % 38.4-49.3 L MCH (test code = 785-6) 28.2 pg 26.1-32.7 MCV (test code = 787-2) 92.7 fL 81.7-95.6 MCHC (test code = 786-4) 30.4 g/dL 31.2-35.0 L PLT (test code = 777-3) 58 See_Comment L [Automated message] The system which generated this result transmitted reference range: 150 - 328 10*3/?L. The reference range was not used to interpret this result as normal/abnormal. MPV (test code = 12261-2) Not Measured RDW-CV (test code = 788-0) 23.4 % 12.1-15.4 H RDW-SD (test code = 54095-6) 77.1 fL 38.5-51.6 H NRBC x10^3 (test code = 7041600411) See_Comment [Automated messa ge] The system which generated this result transmitted reference range: 10*3/?L. The reference range was not used to interpret this result as normal/abnormal. NRBC/100 WBC (test code = 8291632815) 0.0 See_Comment [Automated messa ge] The system which generated this result transmitted reference range: 0.0 - 10.0 /100 WBCs. The reference range was not used to interpret this result as normal/abnormal. IPF % (test code = 4252850796) 16.5 % 1.2-10.7 H Platelet count measured by fluorescence method. Lab Interpretation (test code = 43745-7) Abnormal [facility] GLUCOSE (AUTOMATED)2023-03-09 17:22:56* Test Item Value Reference Range Interpretation Comme [facility] POCT GLU (test code = 8154152201) 254 mg/dL 70-110 H Lab Interpretation (test cod e = 81537-9) Abnormal [facility] GLUCOSE (AUTOMATED)2023-03-09 17:22:56* Test Item Value Reference Range Interpretation Comme [facility] POCT GLU (test code = 5534677212) 254 mg/dL 70-110 H Lab Interpretation (test cod e = 11598-0) [facility]normal [facility]23-[facility]-09 15:58:52* Test Item Value Reference Range Interpretation Comme [facility] HBsAB (test code = 0697320096) Negative HBsAb Semi-Quantitative (test code = 6739043281) 0.20 mIU/mL MIKAYLA (test code = MIKAYLA) Interpretation: ?Hepatitis B Surface Antibody ? Negative - Patient is considered to be not immune to infection with HBV. ? ? Positive - Anti-HBs detected at greater than or equal to 12 mIU/mL. ?Patient is considered to be immune to infection with HBV. ? [facility] 15:58:52* Test Item Value Reference Range Interpretation Comme [facility] HBsAB (test code = 2021229834) Negative HBsAb Semi-Quantitative (test code = 8888751312) 0.20 mIU/mL MIKAYLA (test code = MIKAYLA) Interpretation: ?Hepatitis B Surface Antibody ? Negative - Patient is considered to be not immune to infection with HBV. ? ? Positive - Anti-HBs detected at greater than or equal to 12 mIU/mL. ?Patient is considered to be immune to infection with HBV. ? [facility]2023-[facility]-09 15:58:52* Test Item Value Reference Range Interpretation Comme nts HBsAB (test code = 6075537285) Negative HBsAb Semi-Quantitative (test code = 6757313979) 0.20 mIU/mL MIKAYLA (test code = MIKAYLA) Interpretation: ?Hepatitis B Surface Antibody ? Negative - Patient is considered to be not immune to infection with HBV. ? ? Positive - Anti-HBs detected at greater than or equal to 12 mIU/mL. ?Patient is considered to be immune to infection with HBV. ? [facility] GLUCOSE (AUTOMATED)2023-03-09 14:08:10* Test Item Value Reference Range Interpretation Comme [facility] POCT GLU (test code = 6748830179) 222 mg/dL 70-110 H Lab Interpretation (test cod e = 49711-8) Abnormal [facility] GLUCOSE (AUTOMATED)2023-03-09 14:08:10* Test Item Value Reference Range Interpretation Comme [facility] POCT GLU (test code = 5508843655) 222 mg/dL 70-110 H Lab Interpretation (test cod e = 35352-5) Abnormal [facility] B Surface Antigen (HBsAg)2023-03-09 13:02:02* Test Item Value Reference Range Interpretation Comme [facility] HBsAg Semi-Quantitative (rocio t code = 5195-3) 0.03 Negative [facility] B Surface Antigen (HBsAg)2023-03-09 13:02:02* Test Item Value Reference Range Interpretation Comme [facility] HBsAg Semi-Quantitative (rocio t code = 5195-3) 0.03 Negative [facility] B Surface Antigen (HBsAg)2023-03-09 13:02:02* Test Item Value Reference Range Interpretation Comme [facility] HBsAg Semi-Quantitative (rocio t code = 5195-3) 0.03 Negative [facility] WITH [id number] 10:32:55* Test Item Value Reference Range Interpretation Comme nts WBC (test code = 6690-2) 18.93 See_Comment H [Automated messa ge] The system which generated this result transmitted reference range: 4.20 - 10.70 10*3/?L. The reference range was not used to interpret this result as normal/abnormal. RBC (test code = 789-8) 2.57 See_Comment L [Automated messa ge] The system which generated this result transmitted reference range: 4.26 - 5.52 10*6/?L. The reference range was not used to interpret this result as normal/abnormal. HGB (test code = 718-7) 7.4 g/dL 12.2-16.4 L HCT (test code = 4544-3) 23.7 % 38.4-49.3 L MCV (test code = 787-2) 92.2 fL 81.7-95.6 MCH (test code = 785-6) 28.8 pg 26.1-32.7 MCHC (test code = 786-4) 31.2 g/dL 31.2-35.0 RDW-SD (test code = 31071-6) 77.2 fL 38.5-51.6 H RDW-CV (test code = 788-0) 23.9 % 12.1-15.4 H PLT (test code = 777-3) 58 See_Comment L [Automated [employer]] The system which generated this result transmitted reference range: 150 - 328 10*3/?L. The reference range was not used to interpret this result as normal/abnormal. MPV (test code = 65126-0) Not Measured IPF % (test code = 6977599506) 17.5 % 1.2-10.7 H Platelet count measured by fluorescence method. NRBC/100 WBC (test code = 8716430134) 0.1 See_Comment [Automated [employer]age] The system which generated this result transmitted reference range: 0.0 - 10.0 /100 WBCs. The reference range was not used to interpret this result as normal/abnormal. NRBC x10^3 (test code = 7491822019) 0.02 See_Comment [Automated [employer] ge] The system which generated this result transmitted reference range: 10*3/?L. The reference range was not used to interpret this result as normal/abnormal. GRAN MAT (NEUT) % (test code = 770-8) 88.3 % IMM GRAN % (test code = 5644019442) 1.30 % LYMPH % (test code = 736-9) 5.0 % MONO % (test code = 5905-5) 3.8 % EOS % (test code = 713-8) 1.5 % BASO % (test code = 706-2) 0.1 % GRAN MAT x10^3(ANC) (test code = 4524762440) 16.72 10*3/uL 1.99-6.95 H IMM GRAN x10^3 (test code = 9915388899) 0.25 10*3/uL 0.00-0.06 H LYMPH x10^3 (test code = 731-0) 0.94 10*3/uL 1.09-3.23 L MONO x10^3 (test code = 742-7) 0.72 10*3/uL 0.36-1.02 EOS x10^3 (test code = 711-2) 0.29 10*3/uL 0.06-0.53 BASO x10^3 (test code = 704-7) 0.01-0.09 BRADLEY CELLS (test code = 7790-9) 2+ See_Comment A [Automated messa ge] The system which generated this result transmitted reference range: (none). The reference range was not used to interpret this result as normal/abnormal. POLYCHROMASIA (test code = 21208-6) 2+ See_Comment [Automated messa ge] The system which generated this result transmitted reference range: 2+. The reference range was not used to interpret this result as normal/abnormal. Lab Interpretation (test code = 12731-1) Abnormal [facility] WITH JZZJ2706-04-14 10:32:55* Test Item Value Reference Range Interpretation Comme nts WBC (test code = 6690-2) 18.93 See_Comment H [Automated messa ge] The system which generated this result transmitted reference range: 4.20 - 10.70 10*3/?L. The reference range was not used to interpret this result as normal/abnormal. RBC (test code = 789-8) 2.57 See_Comment L [Automated messa ge] The system which generated this result transmitted reference range: 4.26 - 5.52 10*6/?L. The reference range was not used to interpret this result as normal/abnormal. HGB (test code = 718-7) 7.4 g/dL 12.2-16.4 L HCT (test code = 4544-3) 23.7 % 38.4-49.3 L MCV (test code = 787-2) 92.2 fL 81.7-95.6 MCH (test code = 785-6) 28.8 pg 26.1-32.7 MCHC (test code = 786-4) 31.2 g/dL 31.2-35.0 RDW-SD (test code = 18718-3) 77.2 fL 38.5-51.6 H RDW-CV (test code = 788-0) 23.9 % 12.1-15.4 H PLT (test code = 777-3) 58 See_Comment L [Automated [employer]] The system which generated this result transmitted reference range: 150 - 328 10*3/?L. The reference range was not used to interpret this result as normal/abnormal. MPV (test code = 48130-7) Not Measured IPF % (test code = 5901792797) 17.5 % 1.2-10.7 H Platelet count measured by fluorescence method. NRBC/100 WBC (test code = 6526523731) 0.1 See_Comment [Automated [employer]] The system which generated this result transmitted reference range: 0.0 - 10.0 /100 WBCs. The reference range was not used to interpret this result as normal/abnormal. NRBC x10^3 (test code = 2085078847) 0.02 See_Comment [Automated [employer]] The system which generated this result transmitted reference range: 10*3/?L. The reference range was not used to interpret this result as normal/abnormal. GRAN MAT (NEUT) % (test code = 770-8) 88.3 % IMM GRAN % (test code = 3809012746) 1.30 % LYMPH % (test code = 736-9) 5.0 % MONO % (test code = 5905-5) 3.8 % EOS % (test code = 713-8) 1.5 % BASO % (test code = 706-2) 0.1 % GRAN MAT x10^3(ANC) (test code = 7776526718) 16.72 10*3/uL 1.99-6.95 H IMM GRAN x10^3 (test code = 3075823025) 0.25 10*3/uL 0.00-0.06 H LYMPH x10^3 (test code = 731-0) 0.94 10*3/uL 1.09-3.23 L MONO x10^3 (test code = 742-7) 0.72 10*3/uL 0.36-1.02 EOS x10^3 (test code = 711-2) 0.29 10*3/uL 0.06-0.53 BASO x10^3 (test code = 704-7) 0.01-0.09 BRADLEY CELLS (test code = 7790-9) 2+ See_Comment A [Automated messa ge] The system which generated this result transmitted reference range: (none). The reference range was not used to interpret this result as normal/abnormal. POLYCHROMASIA (test code = 79605-8) 2+ See_Comment [Automated messa ge] The system which generated this result transmitted reference range: 2+. The reference range was not used to interpret this result as normal/abnormal. Lab Interpretation (test code = 29308-6) [facility] Test Item Value Reference Range Interpretation Comme nts MAGNESIUM (test code = 1497634604) 2.2 mg/dL 1.7-2.4 Lab Interpretation (test cod e = 22428-0) [facility] Test Item Value Reference Range Interpretation Comme nts PHOSPHORUS (test code = 4897587186) 3.8 mg/dL 2.5-5.0 Lab Interpretation (test cod e = 82132-7) [facility] Test Item Value Reference Range Interpretation Comme nts MAGNESIUM (test code = 6468578753) 2.2 mg/dL 1.7-2.4 Lab Interpretation (test cod e = 41376-5) [facility]:07:[facility]* Test Item Value Reference Range Interpretation Comme nts PHOSPHORUS (test code = 0196867494) 3.8 mg/dL 2.5-5.0 Lab Interpretation (test cod e = 49895-6) [facility] (NA, K, CL, CO2, GLUCOSE, BUN, CREATININE, CA)2023-03-09 10:07:27* Test Item Value Reference Range Interpretation Comme nts NA (test code = 4952090902) 139 mmol/L 135-145 K (test code = 8678937071) 4.2 mmol/L 3.5-5.0 CL (test code = 6969637865) 110 mmol/L 98-108 H CO2 TOTAL (test code = 1401073770) 17 mmol/L 23-31 L AGAP (test code = 6258276366) 12 2-16 BUN (test code = 3620406373) 52 mg/dL 7-23 H GLUCOSE (test code = 4149913484) 190 mg/dL 70-110 H CREATININE (test code = 3032121047) 3.19 mg/dL 0.60-1.25 H CALCIUM (test code = 2243694146) 7.3 mg/dL 8.6-10.6 L eGFR (test code = 9186062723) 19.9 mL/min/1.73m2 MIKAYLA (test code = MIKAYLA) Association of [...] or abnormalities in imaging tests). Lab Interpretation (test code = 82149-4) Abnormal [facility] METABOLIC PANEL (NA, K, CL, CO2, GLUCOSE, BUN, CREATININE, CA)2023-03-09 10:07:27* Test Item Value Reference Range Interpretation Comme nts NA (test code = 8209736989) 139 mmol/L 135-145 K (test code = 1339670731) 4.2 mmol/L 3.5-5.0 CL (test code = 3718944172) 110 mmol/L 98-108 H CO2 TOTAL (test code = 7524823020) 17 mmol/L 23-31 L AGAP (test code = 2202940158) 12 2-16 BUN (test code = 4575634645) 52 mg/dL 7-23 H GLUCOSE (test code = 0123995566) 190 mg/dL 70-110 H CREATININE (test code = 4405519951) 3.19 mg/dL 0.60-1.25 H CALCIUM (test code = 4178368573) 7.3 mg/dL 8.6-10.6 L eGFR (test code = 6583871310) 19.9 mL/min/1.73m2 MIKAYLA (test code = MIKAYLA) Association of [...] or abnormalities in imaging tests). Lab Interpretation (test code = 54450-3) [facility] Lactic Cldo2204-88-97 09:36:32* Test Item Value Reference Range Interpretation Comme nts PH (test code = 2) 7.38 7.35-7.45 PCO2 (test code = 0050476886) 32 See_Comment L [Automated messa ge] The system which generated this result transmitted reference range: 35 - 45 mmHg. The reference range was not used to interpret this result as normal/abnormal. PO2 (test code = 7157027179) 123 See_Comment H [Automated messa ge] The system which generated this result transmitted reference range: 80 - 100 mmHg. The reference range was not used to interpret this result as normal/abnormal. HCO3 (test code = 5940438561) 18 See_Comment L [Automated messa ge] The system which generated this result transmitted reference range: 22 - 26 mEq/L. The reference range was not used to interpret this result as normal/abnormal. BE (test code = 1059000858) -6.2 See_Comment L [Automated messa ge] The system which generated this result transmitted reference range: -3.0 - 3.0 mEq/L. The reference range was not used to interpret this result as normal/abnormal. THB (test code = 6750213046) 9.1 g/dL 13.5-18.0 L %O2HB (test code = 3602283244) 97.2 % 94.0-99.0 %COHB ART (test code = 2952966004) 1.3 % 0.0-1.5 %METHB ART (test code = 4108383301) 0.1 % 0.4-1.5 L VOL%O2 ART (test code = 1205796055) 12.7 % 15.0-23.0 L NA (test code = 5212478491) 138 mmol/L 135-145 K+ (test code = 3309628872) 4.3 mmol/L 3.5-5.0 AC CA IONZ (test code = 2450656702) 4.40 mg/dL 4.50-5.30 L GLUCOSE (test code = 5735093994) 207 mg/dL 70-110 H LACTIC ACID (test code = 7827729542) 0.97 mmol/L 0.50-2.20 Lab Interpretation (test code = 39897-8) [facility] Lactic Riuq3188-69-06 09:36:32* Test Item Value Reference Range Interpretation Comme nts PH (test code = 2) 7.38 7.35-7.45 PCO2 (test code = 4654200359) 32 See_Comment L [Automated messa ge] The system which generated this result transmitted reference range: 35 - 45 mmHg. The reference range was not used to interpret this result as normal/abnormal. PO2 (test code = 3696850967) 123 See_Comment H [Automated messa ge] The system which generated this result transmitted reference range: 80 - 100 mmHg. The reference range was not used to interpret this result as normal/abnormal. HCO3 (test code = 8737154549) 18 See_Comment L [Automated messa ge] The system which generated this result transmitted reference range: 22 - 26 mEq/L. The reference range was not used to interpret this result as normal/abnormal. BE (test code = 0239386339) -6.2 See_Comment L [Automated messa ge] The system which generated this result transmitted reference range: -3.0 - 3.0 mEq/L. The reference range was not used to interpret this result as normal/abnormal. THB (test code = 9782862913) 9.1 g/dL 13.5-18.0 L %O2HB (test code = 6365789661) 97.2 % 94.0-99.0 %COHB ART (test code = 1422556850) 1.3 % 0.0-1.5 %METHB ART (test code = 9290572545) 0.1 % 0.4-1.5 L VOL%O2 ART (test code = 7219588694) 12.7 % 15.0-23.0 L NA (test code = 5426312437) 138 mmol/L 135-145 K+ (test code = 0790697930) 4.3 mmol/L 3.5-5.0 AC CA IONZ (test code = 7965147113) 4.40 mg/dL 4.50-5.30 L GLUCOSE (test code = 6195951725) 207 mg/dL 70-110 H LACTIC ACID (test code = 6495735785) 0.97 mmol/L 0.50-2.20 Lab Interpretation (test code = 52107-4) [facility] Lactic Pydk9215-45-83 09:36:32* Test Item Value Reference Range Interpretation Comme nts PH (test code = 2) 7.38 7.35-7.45 PCO2 (test code = 3886705649) 32 See_Comment L [Automated messa ge] The system which generated this result transmitted reference range: 35 - 45 mmHg. The reference range was not used to interpret this result as normal/abnormal. PO2 (test code = 4919976846) 123 See_Comment H [Automated messa ge] The system which generated this result transmitted reference range: 80 - 100 mmHg. The reference range was not used to interpret this result as normal/abnormal. HCO3 (test code = 1150158454) 18 See_Comment L [Automated messa ge] The system which generated this result transmitted reference range: 22 - 26 mEq/L. The reference range was not used to interpret this result as normal/abnormal. BE (test code = 1515487727) -6.2 See_Comment L [Automated messa ge] The system which generated this result transmitted reference range: -3.0 - 3.0 mEq/L. The reference range was not used to interpret this result as normal/abnormal. THB (test code = 3133611347) 9.1 g/dL 13.5-18.0 L %O2HB (test code = 8644745617) 97.2 % 94.0-99.0 %COHB ART (test code = 6770356745) 1.3 % 0.0-1.5 %METHB ART (test code = 4994582972) 0.1 % 0.4-1.5 L VOL%O2 ART (test code = 4539440871) 12.7 % 15.0-23.0 L NA (test code = 3620622268) 138 mmol/L 135-145 K+ (test code = 7705282609) 4.3 mmol/L 3.5-5.0 AC CA IONZ (test code = 4349582270) 4.40 mg/dL 4.50-5.30 L GLUCOSE (test code = 1078058431) 207 mg/dL 70-110 H LACTIC ACID (test code = 3935736443) 0.97 mmol/L 0.50-2.20 Lab Interpretation (test code = 71410-4) Abnormal [facility] GLUCOSE (AUTOMATED)2023-03-09 06:22:36* Test Item Value Reference Range Interpretation Comme nts POCT GLU (test code = 5635399680) 179 mg/dL 70-110 H Lab Interpretation (test cod e = 57722-8) Abnormal [facility] GLUCOSE (AUTOMATED)2023-03-09 06:22:36* Test Item Value Reference Range Interpretation Comme nts POCT GLU (test code = 1888116328) 179 mg/dL 70-110 H Lab Interpretation (test cod e = 33872-9) Abnormal [facility] WITH [id number] 02:48:02* Test Item Value Reference Range Interpretation Comme nts WBC (test code = 6690-2) 21.23 See_Comment H [Automated messa ge] The system which generated this result transmitted reference range: 4.20 - 10.70 10*3/?L. The reference range was not used to interpret this result as normal/abnormal. RBC (test code = 789-8) 2.74 See_Comment L [Automated messa ge] The system which generated this result transmitted reference range: 4.26 - 5.52 10*6/?L. The reference range was not used to interpret this result as normal/abnormal. HGB (test code = 718-7) 7.7 g/dL 12.2-16.4 L HCT (test code = 4544-3) 25.5 % 38.4-49.3 L MCV (test code = 787-2) 93.1 fL 81.7-95.6 MCH (test code = 785-6) 28.1 pg 26.1-32.7 MCHC (test code = 786-4) 30.2 g/dL 31.2-35.0 L RDW-SD (test code = 51360-0) 78.2 fL 38.5-51.6 H RDW-CV (test code = 788-0) 24.0 % 12.1-15.4 H PLT (test code = 777-3) 59 See_Comment L [Automated [employer]] The system which generated this result transmitted reference range: 150 - 328 10*3/?L. The reference range was not used to interpret this result as normal/abnormal. MPV (test code = 93106-7) Not Measured IPF % (test code = 5455534794) 18.0 % 1.2-10.7 H Platelet count measured by fluorescence method. NRBC/100 WBC (test code = 6828463047) 0.1 See_Comment [Automated [employer]] The system which generated this result transmitted reference range: 0.0 - 10.0 /100 WBCs. The reference range was not used to interpret this result as normal/abnormal. NRBC x10^3 (test code = 6557985670) 0.02 See_Comment [Automated [employer]] The system which generated this result transmitted reference range: 10*3/?L. The reference range was not used to interpret this result as normal/abnormal. GRAN MAT (NEUT) % (test code = 770-8) 88.4 % IMM GRAN % (test code = 0279515536) 1.10 % LYMPH % (test code = 736-9) 5.4 % MONO % (test code = 5905-5) 3.9 % EOS % (test code = 713-8) 1.1 % BASO % (test code = 706-2) 0.1 % GRAN MAT x10^3(ANC) (test code = 6027677013) 18.77 10*3/uL 1.99-6.95 H IMM GRAN x10^3 (test code = 1778592169) 0.23 10*3/uL 0.00-0.06 H LYMPH x10^3 (test code = 731-0) 1.15 10*3/uL 1.09-3.23 MONO x10^3 (test code = 742-7) 0.82 10*3/uL 0.36-1.02 EOS x10^3 (test code = 711-2) 0.23 10*3/uL 0.06-0.53 BASO x10^3 (test code = 704-7) 0.03 10*3/uL 0.01-0.09 BASO STIPPLING (test code = 703-9) Present A Lab Interpretation (test code = 79751-8) Abnormal [facility] WITH [id number] 02:48:02* Test Item Value Reference Range Interpretation Comme nts WBC (test code = 6690-2) 21.23 See_Comment H [Automated messa ge] The system which generated this result transmitted reference range: 4.20 - 10.70 10*3/?L. The reference range was not used to interpret this result as normal/abnormal. RBC (test code = 789-8) 2.74 See_Comment L [Automated messa ge] The system which generated this result transmitted reference range: 4.26 - 5.52 10*6/?L. The reference range was not used to interpret this result as normal/abnormal. HGB (test code = 718-7) 7.7 g/dL 12.2-16.4 L HCT (test code = 4544-3) 25.5 % 38.4-49.3 L MCV (test code = 787-2) 93.1 fL 81.7-95.6 MCH (test code = 785-6) 28.1 pg 26.1-32.7 MCHC (test code = 786-4) 30.2 g/dL 31.2-35.0 L RDW-SD (test code = 82640-3) 78.2 fL 38.5-51.6 H RDW-CV (test code = 788-0) 24.0 % 12.1-15.4 H PLT (test code = 777-3) 59 See_Comment L [Automated messa ge] The system which generated this result transmitted reference range: 150 - 328 10*3/?L. The reference range was not used to interpret this result as normal/abnormal. MPV (test code = 70434-6) Not Measured IPF % (test code = 8406124562) 18.0 % 1.2-10.7 H Platelet count measured by fluorescence method. NRBC/100 WBC (test code = 4378556608) 0.1 See_Comment [Automated me ssage] The system which generated this result transmitted reference range: 0.0 - 10.0 /100 WBCs. The reference range was not used to interpret this result as normal/abnormal. NRBC x10^3 (test code = 1276086719) 0.02 See_Comment [Automated messa ge] The system which generated this result transmitted reference range: 10*3/?L. The reference range was not used to interpret this result as normal/abnormal. GRAN MAT (NEUT) % (test code = 770-8) 88.4 % IMM GRAN % (test code = 0456858342) 1.10 % LYMPH % (test code = 736-9) 5.4 % MONO % (test code = 5905-5) 3.9 % EOS % (test code = 713-8) 1.1 % BASO % (test code = 706-2) 0.1 % GRAN MAT x10^3(ANC) (test code = 7156508389) 18.77 10*3/uL 1.99-6.95 H IMM GRAN x10^3 (test code = 5665251774) 0.23 10*3/uL 0.00-0.06 H LYMPH x10^3 (test code = 731-0) 1.15 10*3/uL 1.09-3.23 MONO x10^3 (test code = 742-7) 0.82 10*3/uL 0.36-1.02 EOS x10^3 (test code = 711-2) 0.23 10*3/uL 0.06-0.53 BASO x10^3 (test code = 704-7) 0.03 10*3/uL 0.01-0.09 BASO STIPPLING (test code = 703-9) Present A Lab Interpretation (test code = 15624-5) Abnormal [facility] METABOLIC PANEL (NA, K, CL, CO2, GLUCOSE, BUN, CREATININE, CA)2023-03-09 02:25:53* Test Item Value Reference Range Interpretation Comme nts NA (test code = 2224337104) 139 mmol/L 135-145 K (test code = 1815614353) 4.1 mmol/L 3.5-5.0 CL (test code = 7196862415) 113 mmol/L 98-108 H CO2 TOTAL (test code = 6273975973) 18 mmol/L 23-31 L AGAP (test code = 8855196504) 8 2-16 BUN (test code = 5020760489) 46 mg/dL 7-23 H GLUCOSE (test code = 2057510730) 154 mg/dL 70-110 H CREATININE (test code = 7820451647) 2.82 mg/dL 0.60-1.25 H CALCIUM (test code = 2220412761) 7.3 mg/dL 8.6-10.6 L eGFR (test code = 6354120260) 23.0 mL/min/1.73m2 MIKAYLA (test code = MIKAYLA) Association of [...] or abnormalities in imaging tests). Lab Interpretation (test code = 89150-6) Abnormal [facility] METABOLIC PANEL (NA, K, CL, CO2, GLUCOSE, BUN, CREATININE, CA)2023-03-09 02:25:53* Test Item Value Reference Range Interpretation Comme nts NA (test code = 5199721821) 139 mmol/L 135-145 K (test code = 6548681657) 4.1 mmol/L 3.5-5.0 CL (test code = 1857609491) 113 mmol/L 98-108 H CO2 TOTAL (test code = 0483598081) 18 mmol/L 23-31 L AGAP (test code = 1130224001) 8 2-16 BUN (test code = 5625108017) 46 mg/dL 7-23 H GLUCOSE (test code = 3035265039) 154 mg/dL 70-110 H CREATININE (test code = 5902486793) 2.82 mg/dL 0.60-1.25 H CALCIUM (test code = 4049458662) 7.3 mg/dL 8.6-10.6 L eGFR (test code = 1740080317) 23.0 mL/min/1.73m2 MIKAYLA (test code = IMKAYLA) Association of Glomerular Filtration Rate (GFR) and [...] or abnormalities in imaging tests). Lab Interpretation (test code = 47538-5) Abnormal [facility] WITH DOAC6057-36-13 02:12:59* Test Item Value Reference Range Interpretation Comme nts WBC (test code = 6690-2) 22.80 See_Comment H [Automated messa ge] The system which generated this result transmitted reference range: 4.20 - 10.70 10*3/?L. The reference range was not used to interpret this result as normal/abnormal. RBC (test code = 789-8) 2.95 See_Comment L [Automated messa [employer]] The system which generated this result transmitted reference range: 4.26 - 5.52 10*6/?L. The reference range was not used to interpret this result as normal/abnormal. HGB (test code = 718-7) 8.3 g/dL 12.2-16.4 L HCT (test code = 4544-3) 27.6 % 38.4-49.3 L MCV (test code = 787-2) 93.6 fL 81.7-95.6 MCH (test code = 785-6) 28.1 pg 26.1-32.7 MCHC (test code = 786-4) 30.1 g/dL 31.2-35.0 L RDW-SD (test code = 72613-3) 80.6 fL 38.5-51.6 H RDW-CV (test code = 788-0) 24.4 % 12.1-15.4 H PLT (test code = 777-3) 57 See_Comment L [Automated [employer]] The system which generated this result transmitted reference range: 150 - 328 10*3/?L. The reference range was not used to interpret this result as normal/abnormal. MPV (test code = 72862-7) Not Measured IPF % (test code = 3347854216) 19.4 % 1.2-10.7 H Platelet count measured by fluorescence method. NRBC/100 WBC (test code = 4468358913) 0.1 See_Comment [Automated [employer] ssage] The system which generated this result transmitted reference range: 0.0 - 10.0 /100 WBCs. The reference range was not used to interpret this result as normal/abnormal. NRBC x10^3 (test code = 4274886061) 0.03 See_Comment [Automated messa ge] The system which generated this result transmitted reference range: 10*3/?L. The reference range was not used to interpret this result as normal/abnormal. GRAN MAT (NEUT) % (test code = 770-8) 89.0 % IMM GRAN % (test code = 4245640723) 1.10 % LYMPH % (test code = 736-9) 5.0 % MONO % (test code = 5905-5) 4.0 % EOS % (test code = 713-8) 0.8 % BASO % (test code = 706-2) 0.1 % GRAN MAT x10^3(ANC) (test code = 4194259087) 20.28 10*3/uL 1.99-6.95 H IMM GRAN x10^3 (test code = 1423786355) 0.24 10*3/uL 0.00-0.06 H LYMPH x10^3 (test code = 731-0) 1.15 10*3/uL 1.09-3.23 MONO x10^3 (test code = 742-7) 0.92 10*3/uL 0.36-1.02 EOS x10^3 (test code = 711-2) 0.19 10*3/uL 0.06-0.53 BASO x10^3 (test code = 704-7) 0.01-0.09 BRADLEY CELLS (test code = 7790-9) 2+ See_Comment A [Automated messa ge] The system which generated this result transmitted reference range: (none). The reference range was not used to interpret this result as normal/abnormal. Lab Interpretation (test code = 96752-2) Abnormal [facility] WITH [id number] 02:12:59* Test Item Value Reference Range Interpretation Comme nts WBC (test code = 6690-2) 22.80 See_Comment H [Automated messa ge] The system which generated this result transmitted reference range: 4.20 - 10.70 10*3/?L. The reference range was not used to interpret this result as normal/abnormal. RBC (test code = 789-8) 2.95 See_Comment L [Automated messa ge] The system which generated this result transmitted reference range: 4.26 - 5.52 10*6/?L. The reference range was not used to interpret this result as normal/abnormal. HGB (test code = 718-7) 8.3 g/dL 12.2-16.4 L HCT (test code = 4544-3) 27.6 % 38.4-49.3 L MCV (test code = 787-2) 93.6 fL 81.7-95.6 MCH (test code = 785-6) 28.1 pg 26.1-32.7 MCHC (test code = 786-4) 30.1 g/dL 31.2-35.0 L RDW-SD (test code = 88978-5) 80.6 fL 38.5-51.6 H RDW-CV (test code = 788-0) 24.4 % 12.1-15.4 H PLT (test code = 777-3) 57 See_Comment L [Automated messa ge] The system which generated this result transmitted reference range: 150 - 328 10*3/?L. The reference range was not used to interpret this result as normal/abnormal. MPV (test code = 25045-3) Not Measured IPF % (test code = 7077683915) 19.4 % 1.2-10.7 H Platelet count measured by fluorescence method. NRBC/100 WBC (test code = 5279781901) 0.1 See_Comment [Automated [employer] ssage] The system which generated this result transmitted reference range: 0.0 - 10.0 /100 WBCs. The reference range was not used to interpret this result as normal/abnormal. NRBC x10^3 (test code = [id number]) 0.03 See_Comment [Automated messa ge] The system which generated this result transmitted reference range: 10*3/?L. The reference range was not used to interpret this result as normal/abnormal. GRAN MAT (NEUT) % (test code = 770-8) 89.0 % IMM GRAN % (test code = 7252475179) 1.10 % LYMPH % (test code = 736-9) 5.0 % MONO % (test code = 5905-5) 4.0 % EOS % (test code = 713-8) 0.8 % BASO % (test code = 706-2) 0.1 % GRAN MAT x10^3(ANC) (test code = 0664973145) 20.28 10*3/uL 1.99-6.95 H IMM GRAN x10^3 (test code = [id number]) 0.24 10*3/uL 0.00-0.06 H LYMPH x10^3 (test code = 731-0) 1.15 10*3/uL 1.09-3.23 MONO x10^3 (test code = 742-7) 0.92 10*3/uL 0.36-1.02 EOS x10^3 (test code = 711-2) 0.19 10*3/uL 0.06-0.53 BASO x10^3 (test code = 704-7) 0.01-0.09 BRADLEY CELLS (test code = 7790-9) 2+ See_Comment A [Automated messa ge] The system which generated this result transmitted reference range: (none). The reference range was not used to interpret this result as normal/abnormal. Lab Interpretation (test code = 57899-1) [facility] L[facility] [id number] 01:52:11* Test Item Value Reference Range Interpretation Comme nts PH (test code = 2) 7.41 7.35-7.45 PCO2 (test code = 6202024189) 28 See_Comment L [Automated messa ge] The system which generated this result transmitted reference range: 35 - 45 mmHg. The reference range was not used to interpret this result as normal/abnormal. PO2 (test code = 3443309318) 110 See_Comment H [Automated messa ge] The system which generated this result transmitted reference range: 80 - 100 mmHg. The reference range was not used to interpret this result as normal/abnormal. HCO3 (test code = 1746937779) 17 See_Comment L [Automated messa ge] The system which generated this result transmitted reference range: 22 - 26 mEq/L. The reference range was not used to interpret this result as normal/abnormal. BE (test code = 9838032162) -6.3 See_Comment L [Automated messa ge] The system which generated this result transmitted reference range: -3.0 - 3.0 mEq/L. The reference range was not used to interpret this result as normal/abnormal. THB (test code = 4899957047) 9.9 g/dL 13.5-18.0 L %O2HB (test code = 6341490560) 96.9 % 94.0-99.0 %COHB ART (test code = 2245734045) 0.9 % 0.0-1.5 %METHB ART (test code = 0303147802) 0.2 % 0.4-1.5 L VOL%O2 ART (test code = 8771256672) 13.7 % 15.0-23.0 L NA (test code = 2439571126) 139 mmol/L 135-145 K+ (test code = 4145665038) 4.0 mmol/L 3.5-5.0 AC CA IONZ (test code = 5641594751) 4.50 mg/dL 4.50-5.30 GLUCOSE (test code = 0885059038) 154 mg/dL 70-110 H LACTIC ACID (test code = 8253738601) 1.00 mmol/L 0.50-2.20 Lab Interpretation (test code = 54534-9) [facility] L[facility] [id number] 01:52:11* Test Item Value Reference Range Interpretation Comme nts PH (test code = 2) 7.41 7.35-7.45 PCO2 (test code = 1360607592) 28 See_Comment L [Automated messa ge] The system which generated this result transmitted reference range: 35 - 45 mmHg. The reference range was not used to interpret this result as normal/abnormal. PO2 (test code = 1905517724) 110 See_Comment H [Automated messa ge] The system which generated this result transmitted reference range: 80 - 100 mmHg. The reference range was not used to interpret this result as normal/abnormal. HCO3 (test code = 4191399553) 17 See_Comment L [Automated messa ge] The system which generated this result transmitted reference range: 22 - 26 mEq/L. The reference range was not used to interpret this result as normal/abnormal. BE (test code = 7293157160) -6.3 See_Comment L [Automated [employer]] The system which generated this result transmitted reference range: -3.0 - 3.0 mEq/L. The reference range was not used to interpret this result as normal/abnormal. THB (test code = 3657497198) 9.9 g/dL 13.5-18.0 L %O2HB (test code = 8032603134) 96.9 % 94.0-99.0 %COHB ART (test code = 6479183996) 0.9 % 0.0-1.5 %METHB ART (test code = 3643085091) 0.2 % 0.4-1.5 L VOL%O2 ART (test code = 7564212972) 13.7 % 15.0-23.0 L NA (test code = 5991394628) 139 mmol/L 135-145 K+ (test code = 5670654268) 4.0 mmol/L 3.5-5.0 AC CA IONZ (test code = 7373854376) 4.50 mg/dL 4.50-5.30 GLUCOSE (test code = 5101031365) 154 mg/dL 70-110 H LACTIC ACID (test code = 5774792982) 1.00 mmol/L 0.50-2.20 Lab Interpretation (test code = 09176-4) Abnormal [facility] GLUCOSE (AUTOMATED)2023-03-09 01:45:56* Test Item Value Reference Range Interpretation Comme nts POCT GLU (test code = 0972036743) 168 mg/dL 70-110 H Lab Interpretation (test cod e = 67680-6) Abnormal [facility] GLUCOSE (AUTOMATED)2023-03-09 01:45:56* Test Item Value Reference Range Interpretation Comme nts POCT GLU (test code = 2866727076) 168 mg/dL 70-110 H Lab Interpretation (test cod e = 33648-6) [facility] Dwgoqgv6817-25-69 22:55:48 * Test Item Value Reference Range Interpretation Comme nts KELL, Unfractionated Heparin, Low Dose (test code = 36801-9) 0 % KELL, Unfractionated Heparin, High Dose (test code = 04611-4) 0 % KELL, Unfractionated Heparin (Porcine) (test code = 76214-8) Negative Negative KELL, Unfractionated Heparin, Interp. (test code = 33761-6) See Note This patient's s pecimen demonstrates a negative result in the serotonin release assay. ?A diagnosis of heparin-induced thrombocytopenia (HIT) is unlikely, but not completely excluded. A positive result would demonstrate >= 20% serotonin release from reagent platelets in the presence of patient specimen and low-dose heparin (0.1 U/mL) and <20% serotonin release from reagent platelets (inhibition of the reaction) in the presence of patient specimen and high-dose heparin (100 U/mL). ? Additional information regarding diagnosis of HIT is available at [employer].INTERPR ETIVE INFORMATION: KELL, Unfractionated Heparin This test was developed and its performance characteristics determined by [facility]. It has not been cleared or approved by the [place] Food and Drug Administration. This test was performed in a CLIA certified laboratory and is intended for clinical purposes.Performed By: [facility] [place] [address] [id number] Director: Cecilio Choi MD, PhD [facility] Bbsntip5096-10-22 22:55:48 * Test Item Value Reference Range Interpretation Comme nts KELL, Unfractionated Heparin, Low Dose (test code = 40499-4) 0 % KELL, Unfractionated Heparin, High Dose (test code = 91880-8) 0 % KELL, Unfractionated Heparin (Porcine) (test code = 46523-1) Negative Negative KELL, Unfractionated Heparin, Interp. (test code = 03026-3) See Note This patient's s pecimen demonstrates a negative result in the serotonin release assay. ?A diagnosis of heparin-induced thrombocytopenia (HIT) is unlikely, but not completely excluded. A positive result would demonstrate >= 20% serotonin release from reagent platelets in the presence of patient specimen and low-dose heparin (0.1 U/mL) and <20% serotonin release from reagent platelets (inhibition of the reaction) in the presence of patient specimen and high-dose heparin (100 U/mL). ? Additional information regarding diagnosis of HIT is available at [email or web address].INTERPR ETIVE INFORMATION: KELL, Unfractionated Heparin This test was developed and its performance characteristics determined by [facility]. It has not been cleared or approved by the [place] Food and Drug Administration. This test was performed in a CLIA certified laboratory and is intended for clinical purposes.Performed By: [facility] [place] [address] [id number] Director: Cecilio Choi MD, PhD [facility], Unfractionated Jucicrb5446-66-50 22:55:48 * Test Item Value Reference Range Interpretation Comme nts KELL, Unfractionated Heparin, Low Dose (test code = 66942-9) 0 % KELL, Unfractionated Heparin, High Dose (test code = 65202-7) 0 % KELL, Unfractionated Heparin (Porcine) (test code = 56213-8) Negative Negative KELL, Unfractionated Heparin, Interp. (test code = 84518-5) See Note This patient's s pecimen demonstrates a negative result in the serotonin release assay. ?A diagnosis of heparin-induced thrombocytopenia (HIT) is unlikely, but not completely excluded. A positive result would demonstrate >= 20% serotonin release from reagent platelets in the presence of patient specimen and low-dose heparin (0.1 U/mL) and <20% serotonin release from reagent platelets (inhibition of the reaction) in the presence of patient specimen and high-dose heparin (100 U/mL). ? Additional information regarding diagnosis of HIT is available at [email or web address].INTERPR ETIVE INFORMATION: KELL, Unfractionated Heparin This test was developed and its performance characteristics determined by [facility]. It has not been cleared or approved by the [place] Food and Drug Administration. This test was performed in a CLIA certified laboratory and is intended for clinical purposes.Performed By: [facility] [place] [address] [id number] Director: Cecilio Choi MD, PhD [facility], Unfractionated Nlxeleo6241-52-98 22:55:47 * Test Item Value Reference Range Interpretation Comme nts KELL, Unfractionated Heparin, Low Dose (test code = 98289-4) 0 % KELL, Unfractionated Heparin, High Dose (test code = 91273-2) 0 % KELL, Unfractionated Heparin (Porcine) (test code = 61226-1) Negative Negative KELL, Unfractionated Heparin, Interp. (test code = 74947-5) See Note This patient's s pecimen demonstrates a negative result in the serotonin release assay. ?A diagnosis of heparin-induced thrombocytopenia (HIT) is unlikely, but not completely excluded. A positive result would demonstrate >= 20% serotonin release from reagent platelets in the presence of patient specimen and low-dose heparin (0.1 U/mL) and <20% serotonin release from reagent platelets (inhibition of the reaction) in the presence of patient specimen and high-dose heparin (100 U/mL). ? Additional information regarding diagnosis of HIT is available at Int[employer].INTERPR ETIVE INFORMATION: KELL, Unfractionated Heparin This test was developed and its performance characteristics determined by [facility]. It has not been cleared or approved by the [place] Food and Drug Administration. This test was performed in a CLIA certified laboratory and is intended for clinical purposes.Performed By: [facility] [place] [address] [id number] Director: Cecilio Choi MD, PhD [facility]ated Bhlulur3041-83-10 22:55:47 * Test Item Value Reference Range Interpretation Comme nts KELL, Unfractionated Heparin, Low Dose (test code = 19714-8) 0 % KELL, Unfractionated Heparin, High Dose (test code = 89254-8) 0 % KELL, Unfractionated Heparin (Porcine) (test code = 57220-7) Negative Negative KELL, Unfractionated Heparin, Interp. (test code = 92394-9) See Note This patient's s pecimen demonstrates a negative result in the serotonin release assay. ?A diagnosis of heparin-induced thrombocytopenia (HIT) is unlikely, but not completely excluded. A positive result would demonstrate >= 20% serotonin release from reagent platelets in the presence of patient specimen and low-dose heparin (0.1 U/mL) and <20% serotonin release from reagent platelets (inhibition of the reaction) in the presence of patient specimen and high-dose heparin (100 U/mL). ? Additional information regarding diagnosis of HIT is available at [employer].INTERPR ETIVE INFORMATION: KELL, Unfractionated Heparin This test was developed and its performance characteristics determined by [facility]. It has not been cleared or approved by the [place] Food and Drug Administration. This test was performed in a CLIA certified laboratory and is intended for clinical purposes.Performed By: [facility] [place] [address] [id number] Director: Cecilio Choi MD, PhD [facility] GLUCOSE (AUTOMATED)2023-03-08 21:53:23* Test Item Value Reference Range Interpretation Comme nts POCT GLU (test code = 3145641798) 201 mg/dL 70-110 H Lab Interpretation (test cod e = 31970-8) Abnormal [facility] GLUCOSE (AUTOMATED)2023-03-08 21:53:23* Test Item Value Reference Range Interpretation Comme nts POCT GLU (test code = 8276842157) 201 mg/dL 70-110 H Lab Interpretation (test cod e = 73820-9) Abnormal [facility] WITH [id number] 14:14:03* Test Item Value Reference Range Interpretation Comme nts WBC (test code = 6690-2) 22.04 See_Comment H [Automated messa ge] The system which generated this result transmitted reference range: 4.20 - 10.70 10*3/?L. The reference range was not used to interpret this result as normal/abnormal. RBC (test code = 789-8) 2.71 See_Comment L [Automated messa ge] The system which generated this result transmitted reference range: 4.26 - 5.52 10*6/?L. The reference range was not used to interpret this result as normal/abnormal. HGB (test code = 718-7) 7.8 g/dL 12.2-16.4 L HCT (test code = 4544-3) 25.0 % 38.4-49.3 L MCV (test code = 787-2) 92.3 fL 81.7-95.6 MCH (test code = 785-6) 28.8 pg 26.1-32.7 MCHC (test code = 786-4) 31.2 g/dL 31.2-35.0 RDW-SD (test code = 98664-1) 74.7 fL 38.5-51.6 H RDW-CV (test code = 788-0) 23.8 % 12.1-15.4 H PLT (test code = 777-3) 47 See_Comment LL [Automated [employer] ge] The system which generated this result transmitted reference range: 150 - 328 10*3/?L. The reference range was not used to interpret this result as normal/abnormal. MPV (test code = 97241-8) Not Measured IPF % (test code = 8835874489) 17.6 % 1.2-10.7 H Platelet count measured by fluorescence method. NRBC/100 WBC (test code = 4511912296) 0.1 See_Comment [Automated [employer] ssage] The system which generated this result transmitted reference range: 0.0 - 10.0 /100 WBCs. The reference range was not used to interpret this result as normal/abnormal. NRBC x10^3 (test code = 2616874733) 0.03 See_Comment [Automated [employer] ge] The system which generated this result transmitted reference range: 10*3/?L. The reference range was not used to interpret this result as normal/abnormal. GRAN MAT (NEUT) % (test code = 770-8) 88.7 % IMM GRAN % (test code = 2587955101) 1.40 % LYMPH % (test code = 736-9) 5.0 % MONO % (test code = 5905-5) 4.2 % EOS % (test code = 713-8) 0.6 % BASO % (test code = 706-2) 0.1 % GRAN MAT x10^3(ANC) (test code = 9417632047) 19.55 10*3/uL 1.99-6.95 H IMM GRAN x10^3 (test code = 1268883313) 0.30 10*3/uL 0.00-0.06 H LYMPH x10^3 (test code = 731-0) 1.10 10*3/uL 1.09-3.23 MONO x10^3 (test code = 742-7) 0.93 10*3/uL 0.36-1.02 EOS x10^3 (test code = 711-2) 0.14 10*3/uL 0.06-0.53 BASO x10^3 (test code = 704-7) 0.01-0.09 SCHISTOCYTES (test code = 800-3) 1+ A Lab Interpretation (test code = 84858-6) Abnormal [facility] WITH [id number] 14:14:03* Test Item Value Reference Range Interpretation Comme nts WBC (test code = 6690-2) 22.04 See_Comment H [Automated messa ge] The system which generated this result transmitted reference range: 4.20 - 10.70 10*3/?L. The reference range was not used to interpret this result as normal/abnormal. RBC (test code = 789-8) 2.71 See_Comment L [Automated [employer] ge] The system which generated this result transmitted reference range: 4.26 - 5.52 10*6/?L. The reference range was not used to interpret this result as normal/abnormal. HGB (test code = 718-7) 7.8 g/dL 12.2-16.4 L HCT (test code = 4544-3) 25.0 % 38.4-49.3 L MCV (test code = 787-2) 92.3 fL 81.7-95.6 MCH (test code = 785-6) 28.8 pg 26.1-32.7 MCHC (test code = 786-4) 31.2 g/dL 31.2-35.0 RDW-SD (test code = 65841-8) 74.7 fL 38.5-51.6 H RDW-CV (test code = 788-0) 23.8 % 12.1-15.4 H PLT (test code = 777-3) 47 See_Comment LL [Automated [employer] ge] The system which generated this result transmitted reference range: 150 - 328 10*3/?L. The reference range was not used to interpret this result as normal/abnormal. MPV (test code = 22539-0) Not Measured IPF % (test code = 2690773173) 17.6 % 1.2-10.7 H Platelet count measured by fluorescence method. NRBC/100 WBC (test code = 4180355198) 0.1 See_Comment [Automated me ssage] The system which generated this result transmitted reference range: 0.0 - 10.0 /100 WBCs. The reference range was not used to interpret this result as normal/abnormal. NRBC x10^3 (test code = 7237824366) 0.03 See_Comment [Automated messa ge] The system which generated this result transmitted reference range: 10*3/?L. The reference range was not used to interpret this result as normal/abnormal. GRAN MAT (NEUT) % (test code = 770-8) 88.7 % IMM GRAN % (test code = 2389718198) 1.40 % LYMPH % (test code = 736-9) 5.0 % MONO % (test code = 5905-5) 4.2 % EOS % (test code = 713-8) 0.6 % BASO % (test code = 706-2) 0.1 % GRAN MAT x10^3(ANC) (test code = 2792346851) 19.55 10*3/uL 1.99-6.95 H IMM GRAN x10^3 (test code = 9138585315) 0.30 10*3/uL 0.00-0.06 H LYMPH x10^3 (test code = 731-0) 1.10 10*3/uL 1.09-3.23 MONO x10^3 (test code = 742-7) 0.93 10*3/uL 0.36-1.02 EOS x10^3 (test code = 711-2) 0.14 10*3/uL 0.06-0.53 BASO x10^3 (test code = 704-7) 0.01-0.09 SCHISTOCYTES (test code = 800-3) 1+ A Lab Interpretation (test code = 97823-9) Abnormal [facility] GLUCOSE (AUTOMATED)2023-03-08 13:37:19* Test Item Value Reference Range Interpretation Comme nts POCT GLU (test code = 8927829852) 150 mg/dL 70-110 H Lab Interpretation (test cod e = 93064-2) Abnormal [facility] GLUCOSE (AUTOMATED)2023-03-08 13:37:19* Test Item Value Reference Range Interpretation Comme nts POCT GLU (test code = 2508984037) 150 mg/dL 70-110 H Lab Interpretation (test cod e = 64409-2) [facility] (NA, K, CL, CO2, GLUCOSE, BUN, CREATININE, CA)2023-03-08 11:59:39* Test Item Value Reference Range Interpretation Comme nts NA (test code = 9107757627) 138 mmol/L 135-145 K (test code = 9414829678) 3.9 mmol/L 3.5-5.0 CL (test code = 2032595650) 112 mmol/L 98-108 H CO2 TOTAL (test code = 0356929692) 18 mmol/L 23-31 L AGAP (test code = 1233753293) 8 2-16 BUN (test code = 4677090322) 36 mg/dL 7-23 H GLUCOSE (test code = 2619888959) 136 mg/dL 70-110 H CREATININE (test code = 9087483709) 2.19 mg/dL 0.60-1.25 H CALCIUM (test code = 5855211555) 7.0 mg/dL 8.6-10.6 L eGFR (test code = 2330736046) 30.7 mL/min/1.73m2 MIKAYLA (test code = MIKAYLA) Association of [...] or abnormalities in imaging tests). Lab Interpretation (test code = 49003-3) [facility] 11:59:39* Test Item Value Reference Range Interpretation Comme nts MAGNESIUM (test code = 9922223944) 2.2 mg/dL 1.7-2.4 Lab Interpretation (test cod e = 07173-2) [facility] 11:59:39* Test Item Value Reference Range Interpretation Comme nts PHOSPHORUS (test code = 2092553546) 3.1 mg/dL 2.5-5.0 Lab Interpretation (test cod e = 75789-7) Normal [facility] (NA, K, CL, CO2, GLUCOSE, BUN, CREATININE, CA)2023-03-08 11:59:39* Test Item Value Reference Range Interpretation Comme nts NA (test code = 6006335760) 138 mmol/L 135-145 K (test code = 9690588608) 3.9 mmol/L 3.5-5.0 CL (test code = 9531980169) 112 mmol/L 98-108 H CO2 TOTAL (test code = 7825897839) 18 mmol/L 23-31 L AGAP (test code = 5108507316) 8 2-16 BUN (test code = 8919176700) 36 mg/dL 7-23 H GLUCOSE (test code = 4137787123) 136 mg/dL 70-110 H CREATININE (test code = 7419964016) 2.19 mg/dL 0.60-1.25 H CALCIUM (test code = 6489155289) 7.0 mg/dL 8.6-10.6 L eGFR (test code = 2722310281) 30.7 mL/min/1.73m2 MIKAYLA (test code = MIKAYLA) Association of [...] or abnormalities in imaging tests). Lab Interpretation (test code = 00967-5) [facility] 11:59:39* Test Item Value Reference Range Interpretation Comme nts MAGNESIUM (test code = 8243792723) 2.2 mg/dL 1.7-2.4 Lab Interpretation (test cod e = 85432-8) [facility] 11:59:39* Test Item Value Reference Range Interpretation Comme nts PHOSPHORUS (test code = 0249426736) 3.1 mg/dL 2.5-5.0 Lab Interpretation (test cod e = 96453-4) Normal [facility] GLUCOSE (AUTOMATED)2023-03-08 10:54:21* Test Item Value Reference Range Interpretation Comme [facility] POCT GLU (test code = 2792239434) 145 mg/dL 70-110 H Lab Interpretation (test cod e = 50749-1) Abnormal [facility] GLUCOSE (AUTOMATED)2023-03-08 10:54:21* Test Item Value Reference Range Interpretation Comme nts POCT GLU (test code = 3988950869) 145 mg/dL 70-110 H Lab Interpretation (test cod e = 40321-9) Abnormal [facility] WITH [id number] 06:46:23* Test Item Value Reference Range Interpretation Comme nts WBC (test code = 6690-2) 22.64 See_Comment H [Automated messa ge] The system which generated this result transmitted reference range: 4.20 - 10.70 10*3/?L. The reference range was not used to interpret this result as normal/abnormal. RBC (test code = 789-8) 2.75 See_Comment L [Automated messa ge] The system which generated this result transmitted reference range: 4.26 - 5.52 10*6/?L. The reference range was not used to interpret this result as normal/abnormal. HGB (test code = 718-7) 7.8 g/dL 12.2-16.4 L HCT (test code = 4544-3) 25.4 % 38.4-49.3 L MCV (test code = 787-2) 92.4 fL 81.7-95.6 MCH (test code = 785-6) 28.4 pg 26.1-32.7 MCHC (test code = 786-4) 30.7 g/dL 31.2-35.0 L RDW-SD (test code = 27894-9) 75.7 fL 38.5-51.6 H RDW-CV (test code = 788-0) 23.9 % 12.1-15.4 H PLT (test code = 777-3) 44 See_Comment LL [Automated messa ge] The system which generated this result transmitted reference range: 150 - 328 10*3/?L. The reference range was not used to interpret this result as normal/abnormal. MPV (test code = 40051-8) Not Measured IPF % (test code = 2585480437) 17.3 % 1.2-10.7 H Platelet count measured by fluorescence method. NRBC/100 WBC (test code = 2400276371) 0.2 See_Comment [Automated [employer] ssage] The system which generated this result transmitted reference range: 0.0 - 10.0 /100 WBCs. The reference range was not used to interpret this result as normal/abnormal. NRBC x10^3 (test code = 3458767106) 0.04 See_Comment [Automated messa ge] The system which generated this result transmitted reference range: 10*3/?L. The reference range was not used to interpret this result as normal/abnormal. GRAN MAT (NEUT) % (test code = 770-8) 89.3 % IMM GRAN % (test code = 5702232656) 1.10 % LYMPH % (test code = 736-9) 4.3 % MONO % (test code = 5905-5) 5.0 % EOS % (test code = 713-8) 0.2 % BASO % (test code = 706-2) 0.1 % GRAN MAT x10^3(ANC) (test code = 9825079798) 20.21 10*3/uL 1.99-6.95 H IMM GRAN x10^3 (test code = 0644478211) 0.25 10*3/uL 0.00-0.06 H LYMPH x10^3 (test code = 731-0) 0.98 10*3/uL 1.09-3.23 L MONO x10^3 (test code = 742-7) 1.14 10*3/uL 0.36-1.02 H EOS x10^3 (test code = 711-2) 0.04 10*3/uL 0.06-0.53 L BASO x10^3 (test code = 704-7) 0.01-0.09 SCHISTOCYTES (test code = 800-3) 1+ A Lab Interpretation (test code = 60304-4) Abnormal [facility] WITH [id number] 06:46:23* Test Item Value Reference Range Interpretation Comme nts WBC (test code = 6690-2) 22.64 See_Comment H [Automated messa ge] The system which generated this result transmitted reference range: 4.20 - 10.70 10*3/?L. The reference range was not used to interpret this result as normal/abnormal. RBC (test code = 789-8) 2.75 See_Comment L [Automated messa ge] The system which generated this result transmitted reference range: 4.26 - 5.52 10*6/?L. The reference range was not used to interpret this result as normal/abnormal. HGB (test code = 718-7) 7.8 g/dL 12.2-16.4 L HCT (test code = 4544-3) 25.4 % 38.4-49.3 L MCV (test code = 787-2) 92.4 fL 81.7-95.6 MCH (test code = 785-6) 28.4 pg 26.1-32.7 MCHC (test code = 786-4) 30.7 g/dL 31.2-35.0 L RDW-SD (test code = 64304-1) 75.7 fL 38.5-51.6 H RDW-CV (test code = 788-0) 23.9 % 12.1-15.4 H PLT (test code = 777-3) 44 See_Comment LL [Automated [employer]] The system which generated this result transmitted reference range: 150 - 328 10*3/?L. The reference range was not used to interpret this result as normal/abnormal. MPV (test code = 20284-2) Not Measured IPF % (test code = 9449679252) 17.3 % 1.2-10.7 H Platelet count measured by fluorescence method. NRBC/100 WBC (test code = 7131727270) 0.2 See_Comment [Automated [employer]] The system which generated this result transmitted reference range: 0.0 - 10.0 /100 WBCs. The reference range was not used to interpret this result as normal/abnormal. NRBC x10^3 (test code = 7688765327) 0.04 See_Comment [Automated [employer]] The system which generated this result transmitted reference range: 10*3/?L. The reference range was not used to interpret this result as normal/abnormal. GRAN MAT (NEUT) % (test code = 770-8) 89.3 % IMM GRAN % (test code = 3552955545) 1.10 % LYMPH % (test code = 736-9) 4.3 % MONO % (test code = 5905-5) 5.0 % EOS % (test code = 713-8) 0.2 % BASO % (test code = 706-2) 0.1 % GRAN MAT x10^3(ANC) (test code = 1547712400) 20.21 10*3/uL 1.99-6.95 H IMM GRAN x10^3 (test code = 7961971699) 0.25 10*3/uL 0.00-0.06 H LYMPH x10^3 (test code = 731-0) 0.98 10*3/uL 1.09-3.23 L MONO x10^3 (test code = 742-7) 1.14 10*3/uL 0.36-1.02 H EOS x10^3 (test code = 711-2) 0.04 10*3/uL 0.06-0.53 L BASO x10^3 (test code = 704-7) 0.01-0.09 SCHISTOCYTES (test code = 800-3) 1+ A Lab Interpretation (test code = 31806-0) Abnormal [facility] GLUCOSE (AUTOMATED)2023-03-08 05:52:04* Test Item Value Reference Range Interpretation Comme nts POCT GLU (test code = 9499634166) 150 mg/dL 70-110 H Lab Interpretation (test cod e = 22691-9) Abnormal [facility] GLUCOSE (AUTOMATED)2023-03-08 05:52:04* Test Item Value Reference Range Interpretation Comme nts POCT GLU (test code = 0036176929) 150 mg/dL 70-110 H Lab Interpretation (test cod e = 81839-7) Abnormal [facility] WITH [id number] 02:38:27* Test Item Value Reference Range Interpretation Comme nts WBC (test code = 6690-2) 21.26 See_Comment H [Automated messa ge] The system which generated this result transmitted reference range: 4.20 - 10.70 10*3/?L. The reference range was not used to interpret this result as normal/abnormal. RBC (test code = 789-8) 2.84 See_Comment L [Automated messa ge] The system which generated this result transmitted reference range: 4.26 - 5.52 10*6/?L. The reference range was not used to interpret this result as normal/abnormal. HGB (test code = 718-7) 8.0 g/dL 12.2-16.4 L HCT (test code = 4544-3) 26.1 % 38.4-49.3 L MCV (test code = 787-2) 91.9 fL 81.7-95.6 MCH (test code = 785-6) 28.2 pg 26.1-32.7 MCHC (test code = 786-4) 30.7 g/dL 31.2-35.0 L RDW-SD (test code = 89062-2) 74.7 fL 38.5-51.6 H RDW-CV (test code = 788-0) 23.6 % 12.1-15.4 H PLT (test code = 777-3) 45 See_Comment LL [Automated [employer]] The system which generated this result transmitted reference range: 150 - 328 10*3/?L. The reference range was not used to interpret this result as normal/abnormal. MPV (test code = 69094-9) Not Measured IPF % (test code = 4113050825) 15.8 % 1.2-10.7 H Platelet count measured by fluorescence method. NRBC/100 WBC (test code = 2182796435) 0.2 See_Comment [Automated [employer] ssage] The system which generated this result transmitted reference range: 0.0 - 10.0 /100 WBCs. The reference range was not used to interpret this result as normal/abnormal. NRBC x10^3 (test code = 9549524314) 0.04 See_Comment [Automated [employer]] The system which generated this result transmitted reference range: 10*3/?L. The reference range was not used to interpret this result as normal/abnormal. GRAN MAT (NEUT) % (test code = 770-8) 89.3 % IMM GRAN % (test code = 7986065279) 1.30 % LYMPH % (test code = 736-9) 3.9 % MONO % (test code = 5905-5) 5.4 % EOS % (test code = 713-8) 0.0 % BASO % (test code = 706-2) 0.1 % GRAN MAT x10^3(ANC) (test code = 3070951630) 18.98 10*3/uL 1.99-6.95 H IMM GRAN x10^3 (test code = 4248917785) 0.28 10*3/uL 0.00-0.06 H LYMPH x10^3 (test code = 731-0) 0.83 10*3/uL 1.09-3.23 L MONO x10^3 (test code = 742-7) 1.14 10*3/uL 0.36-1.02 H EOS x10^3 (test code = 711-2) 0.06-0.53 L BASO x10^3 (test code = 704-7) 0.01-0.09 SCHISTOCYTES (test code = 800-3) 1+ A Lab Interpretation (test code = 55401-4) Abnormal [facility] WITH [id number] 02:38:27* Test Item Value Reference Range Interpretation Comme nts WBC (test code = 6690-2) 21.26 See_Comment H [Automated messa ge] The system which generated this result transmitted reference range: 4.20 - 10.70 10*3/?L. The reference range was not used to interpret this result as normal/abnormal. RBC (test code = 789-8) 2.84 See_Comment L [Automated messa ge] The system which generated this result transmitted reference range: 4.26 - 5.52 10*6/?L. The reference range was not used to interpret this result as normal/abnormal. HGB (test code = 718-7) 8.0 g/dL 12.2-16.4 L HCT (test code = 4544-3) 26.1 % 38.4-49.3 L MCV (test code = 787-2) 91.9 fL 81.7-95.6 MCH (test code = 785-6) 28.2 pg 26.1-32.7 MCHC (test code = 786-4) 30.7 g/dL 31.2-35.0 L RDW-SD (test code = 06599-7) 74.7 fL 38.5-51.6 H RDW-CV (test code = 788-0) 23.6 % 12.1-15.4 H PLT (test code = 777-3) 45 See_Comment LL [Automated messa ge] The system which generated this result transmitted reference range: 150 - 328 10*3/?L. The reference range was not used to interpret this result as normal/abnormal. MPV (test code = 40009-8) Not Measured IPF % (test code = 6051862360) 15.8 % 1.2-10.7 H Platelet count measured by fluorescence method. NRBC/100 WBC (test code = 6325924402) 0.2 See_Comment [Automated [employer] ssage] The system which generated this result transmitted reference range: 0.0 - 10.0 /100 WBCs. The reference range was not used to interpret this result as normal/abnormal. NRBC x10^3 (test code = 4783846162) 0.04 See_Comment [Automated messa ge] The system which generated this result transmitted reference range: 10*3/?L. The reference range was not used to interpret this result as normal/abnormal. GRAN MAT (NEUT) % (test code = 770-8) 89.3 % IMM GRAN % (test code = 0038938455) 1.30 % LYMPH % (test code = 736-9) 3.9 % MONO % (test code = 5905-5) 5.4 % EOS % (test code = 713-8) 0.0 % BASO % (test code = 706-2) 0.1 % GRAN MAT x10^3(ANC) (test code = 5875852462) 18.98 10*3/uL 1.99-6.95 H IMM GRAN x10^3 (test code = 1221312867) 0.28 10*3/uL 0.00-0.06 H LYMPH x10^3 (test code = 731-0) 0.83 10*3/uL 1.09-3.23 L MONO x10^3 (test code = 742-7) 1.14 10*3/uL 0.36-1.02 H EOS x10^3 (test code = 711-2) 0.06-0.53 L BASO x10^3 (test code = 704-7) 0.01-0.09 SCHISTOCYTES (test code = 800-3) 1+ A Lab Interpretation (test code = 73371-4) [facility] [id number] 01:59:24* Test Item Value Reference Range Interpretation Comme nts PH (test code = 2) 7.38 7.35-7.45 PCO2 (test code = 6963662450) 31 See_Comment L [Automated messa ge] The system which generated this result transmitted reference range: 35 - 45 mmHg. The reference range was not used to interpret this result as normal/abnormal. PO2 (test code = 1704281505) 115 See_Comment H [Automated messa ge] The system which generated this result transmitted reference range: 80 - 100 mmHg. The reference range was not used to interpret this result as normal/abnormal. HCO3 (test code = 7864175750) 18 See_Comment L [Automated messa ge] The system which generated this result transmitted reference range: 22 - 26 mEq/L. The reference range was not used to interpret this result as normal/abnormal. BE (test code = 1024487746) -6.2 See_Comment L [Automated messa ge] The system which generated this result transmitted reference range: -3.0 - 3.0 mEq/L. The reference range was not used to interpret this result as normal/abnormal. THB (test code = 0039918366) 8.6 g/dL 13.5-18.0 L %O2HB (test code = 0640024394) 97.2 % 94.0-99.0 %COHB ART (test code = 8139390039) 0.9 % 0.0-1.5 %METHB ART (test code = 3020558249) 0.2 % 0.4-1.5 L VOL%O2 ART (test code = 7674552014) 12.0 % 15.0-23.0 L NA (test code = 6404071074) 139 mmol/L 135-145 K+ (test code = 9537087197) 4.0 mmol/L 3.5-5.0 AC CA IONZ (test code = 3427000098) 4.30 mg/dL 4.50-5.30 L GLUCOSE (test code = 9437799630) 132 mg/dL 70-110 H LACTIC ACID (test code = 5620261935) 0.95 mmol/L 0.50-2.20 Lab Interpretation (test code = 34669-3) [facility] [id number] 01:59:24* Test Item Value Reference Range Interpretation Comme nts PH (test code = 2) 7.38 7.35-7.45 PCO2 (test code = 0903757874) 31 See_Comment L [Automated messa ge] The system which generated this result transmitted reference range: 35 - 45 mmHg. The reference range was not used to interpret this result as normal/abnormal. PO2 (test code = 2375067830) 115 See_Comment H [Automated messa ge] The system which generated this result transmitted reference range: 80 - 100 mmHg. The reference range was not used to interpret this result as normal/abnormal. HCO3 (test code = 1500294155) 18 See_Comment L [Automated messa ge] The system which generated this result transmitted reference range: 22 - 26 mEq/L. The reference range was not used to interpret this result as normal/abnormal. BE (test code = 3228859308) -6.2 See_Comment L [Automated messa ge] The system which generated this result transmitted reference range: -3.0 - 3.0 mEq/L. The reference range was not used to interpret this result as normal/abnormal. THB (test code = 5564146200) 8.6 g/dL 13.5-18.0 L %O2HB (test code = 4523584167) 97.2 % 94.0-99.0 %COHB ART (test code = 5582943251) 0.9 % 0.0-1.5 %METHB ART (test code = 4562915886) 0.2 % 0.4-1.5 L VOL%O2 ART (test code = 2102806038) 12.0 % 15.0-23.0 L NA (test code = 6042393279) 139 mmol/L 135-145 K+ (test code = 7849190025) 4.0 mmol/L 3.5-5.0 AC CA IONZ (test code = 3595319623) 4.30 mg/dL 4.50-5.30 L GLUCOSE (test code = 5288661280) 132 mg/dL 70-110 H LACTIC ACID (test code = 8380438854) 0.95 mmol/L 0.50-2.20 Lab Interpretation (test code = 15685-2) Abnormal [facility] GLUCOSE (AUTOMATED)2023-03-08 01:51:47* Test Item Value Reference Range Interpretation Comme [facility] POCT GLU (test code = 0917958410) 136 mg/dL 70-110 H Lab Interpretation (test cod e = 98856-6) Abnormal [facility] GLUCOSE (AUTOMATED)2023-03-08 01:51:47* Test Item Value Reference Range Interpretation Comme [facility] POCT GLU (test code = 8486982049) 136 mg/dL 70-110 H Lab Interpretation (test cod e = 98536-6) Abnormal [facility] Packed RBC (in units), 1 Units 2023-03-08 00:21:37* Test Item Value Reference Range Interpretation Comme nts Cross Match Result (test code = 4409) Compatible ISBT Blood Type Code (test code = 536339) 5100 Unit Blood Type (test code = 4410) O Pos Unit Number (test code = 4411) [id number] Blood Expiration Date & Time (test code = 154956) 448706751600 Status Information (test code = 4412) Issued Product Identification (test code = 4413) Red Blood Cells Product Code (test code = 4414) [id number] Performed at [facility] Blood [address] [address]Omqn Free: [phone] No. [id number] [facility] Packed RBC (in units), 1 Units 2023-03-08 00:21:37* Test Item Value Reference Range Interpretation Comme nts Cross Match Result (test code = 4409) Compatible ISBT Blood Type Code (test code = 816570) 5100 Unit Blood Type (test code = 4410) O Pos Unit Number (test code = 4411) [id number] Blood Expiration Date & Time (test code = 295782) 685290222283 Status Information (test code = 4412) Issued Product Identification (test code = 4413) Red Blood Cells Product Code (test code = 4414) [id number] Performed at [facility] Blood [address] [address]Yghf Free: [phone] No. [id number] [facility] GLUCOSE (AUTOMATED)2023-03-07 21:56:22* Test Item Value Reference Range Interpretation Comme nts POCT GLU (test code = 2669250909) 125 mg/dL 70-110 H Lab Interpretation (test cod e = 55893-3) Abnormal [facility] GLUCOSE (AUTOMATED)2023-03-07 21:56:22* Test Item Value Reference Range Interpretation Comme nts POCT GLU (test code = 6553399183) 125 mg/dL 70-110 H Lab Interpretation (test cod e = 52367-5) [facility] Ehnrq0817-62-14 20:58:22* Test Item Value Reference Range Interpretation Comme nts VANCO RANDOM (test code = 9405336173) 14.2 ug/mL [facility] Otugb8275-03-94 20:58:22* Test Item Value Reference Range Interpretation Comme nts VANCO RANDOM (test code = 5926795864) 14.2 ug/mL [facility] Plmhb4692-89-05 20:58:22* Test Item Value Reference Range Interpretation Comme nts VANCO RANDOM (test code = 5781025328) 14.2 ug/mL [facility] WITH [id number] 19:30:00* Test Item Value Reference Range Interpretation Comme nts WBC (test code = 6690-2) 21.13 See_Comment H [Automated messa ge] The system which generated this result transmitted reference range: 4.20 - 10.70 10*3/?L. The reference range was not used to interpret this result as normal/abnormal. RBC (test code = 789-8) 2.55 See_Comment L [Automated messa ge] The system which generated this result transmitted reference range: 4.26 - 5.52 10*6/?L. The reference range was not used to interpret this result as normal/abnormal. HGB (test code = 718-7) 7.0 g/dL 12.2-16.4 L HCT (test code = 4544-3) 23.6 % 38.4-49.3 L MCV (test code = 787-2) 92.5 fL 81.7-95.6 MCH (test code = 785-6) 27.5 pg 26.1-32.7 MCHC (test code = 786-4) 29.7 g/dL 31.2-35.0 L RDW-SD (test code = 09090-9) 79.0 fL 38.5-51.6 H RDW-CV (test code = 788-0) 25.0 % 12.1-15.4 H PLT (test code = 777-3) 46 See_Comment LL [Automated [employer]] The system which generated this result transmitted reference range: 150 - 328 10*3/?L. The reference range was not used to interpret this result as normal/abnormal. MPV (test code = 38008-7) Not Measured IPF % (test code = 5602428648) 18.3 % 1.2-10.7 H Platelet count measured by fluorescence method. NRBC/100 WBC (test code = 8944005494) 0.2 See_Comment [Automated [employer] ssage] The system which generated this result transmitted reference range: 0.0 - 10.0 /100 WBCs. The reference range was not used to interpret this result as normal/abnormal. NRBC x10^3 (test code = 7211089402) 0.04 See_Comment [Automated [employer]] The system which generated this result transmitted reference range: 10*3/?L. The reference range was not used to interpret this result as normal/abnormal. GRAN MAT (NEUT) % (test code = 770-8) 90.8 % IMM GRAN % (test code = 4199887349) 1.30 % LYMPH % (test code = 736-9) 3.5 % MONO % (test code = 5905-5) 4.3 % EOS % (test code = 713-8) 0.0 % BASO % (test code = 706-2) 0.1 % GRAN MAT x10^3(ANC) (test code = 2330797500) 19.20 10*3/uL 1.99-6.95 H IMM GRAN x10^3 (test code = 7827648039) 0.27 10*3/uL 0.00-0.06 H LYMPH x10^3 (test code = 731-0) 0.73 10*3/uL 1.09-3.23 L MONO x10^3 (test code = 742-7) 0.90 10*3/uL 0.36-1.02 EOS x10^3 (test code = 711-2) 0.06-0.53 L BASO x10^3 (test code = 704-7) 0.01-0.09 SCHISTOCYTES (test code = 800-3) 1+ A Lab Interpretation (test code = 04276-5) Abnormal [facility] WITH [id number] 19:30:00* Test Item Value Reference Range Interpretation Comme nts WBC (test code = 6690-2) 21.13 See_Comment H [Automated messa ge] The system which generated this result transmitted reference range: 4.20 - 10.70 10*3/?L. The reference range was not used to interpret this result as normal/abnormal. RBC (test code = 789-8) 2.55 See_Comment L [Automated messa ge] The system which generated this result transmitted reference range: 4.26 - 5.52 10*6/?L. The reference range was not used to interpret this result as normal/abnormal. HGB (test code = 718-7) 7.0 g/dL 12.2-16.4 L HCT (test code = 4544-3) 23.6 % 38.4-49.3 L MCV (test code = 787-2) 92.5 fL 81.7-95.6 MCH (test code = 785-6) 27.5 pg 26.1-32.7 MCHC (test code = 786-4) 29.7 g/dL 31.2-35.0 L RDW-SD (test code = 56252-2) 79.0 fL 38.5-51.6 H RDW-CV (test code = 788-0) 25.0 % 12.1-15.4 H PLT (test code = 777-3) 46 See_Comment LL [Automated messa ge] The system which generated this result transmitted reference range: 150 - 328 10*3/?L. The reference range was not used to interpret this result as normal/abnormal. MPV (test code = 97603-2) Not Measured IPF % (test code = 8861832767) 18.3 % 1.2-10.7 H Platelet count measured by fluorescence method. NRBC/100 WBC (test code = 1085182372) 0.2 See_Comment [Automated me ssage] The system which generated this result transmitted reference range: 0.0 - 10.0 /100 WBCs. The reference range was not used to interpret this result as normal/abnormal. NRBC x10^3 (test code = 6255144711) 0.04 See_Comment [Automated messa ge] The system which generated this result transmitted reference range: 10*3/?L. The reference range was not used to interpret this result as normal/abnormal. GRAN MAT (NEUT) % (test code = 770-8) 90.8 % IMM GRAN % (test code = 9533761754) 1.30 % LYMPH % (test code = 736-9) 3.5 % MONO % (test code = 5905-5) 4.3 % EOS % (test code = 713-8) 0.0 % BASO % (test code = 706-2) 0.1 % GRAN MAT x10^3(ANC) (test code = 3526169156) 19.20 10*3/uL 1.99-6.95 H IMM GRAN x10^3 (test code = 0761781689) 0.27 10*3/uL 0.00-0.06 H LYMPH x10^3 (test code = 731-0) 0.73 10*3/uL 1.09-3.23 L MONO x10^3 (test code = 742-7) 0.90 10*3/uL 0.36-1.02 EOS x10^3 (test code = 711-2) 0.06-0.53 L BASO x10^3 (test code = 704-7) 0.01-0.09 SCHISTOCYTES (test code = 800-3) 1+ A Lab Interpretation (test code = 37516-2) Abnormal [facility] GLUCOSE (AUTOMATED)2023-03-07 18:29:18* Test Item Value Reference Range Interpretation Comme nts POCT GLU (test code = 9018768289) 142 mg/dL 70-110 H Lab Interpretation (test cod e = 07866-1) Abnormal [facility] GLUCOSE (AUTOMATED)2023-03-07 18:29:18* Test Item Value Reference Range Interpretation Comme [facility] POCT GLU (test code = 8828259707) 142 mg/dL 70-110 H Lab Interpretation (test cod e = 02042-1) Abnormal [facility] ICRFRJM8875-69-32 16:03:39* Test Item Value Reference Range Interpretation Comme nts SPUTUM CULTURE (test code = 622-1) 1+ Respiratory driss: Commensal upper respiratory microorganisms only. Gram stain (test code = 664-3) No Epithelial cells MIKAYLA (test code = MIKAYLA) Bacterial pathogens associated with lower respiratory infections were not identified, which include Pseudomonas aeruginosa and Staphylococcus aureus (MRSA or MSSA). [facility] [id number] 16:03:39* Test Item Value Reference Range Interpretation Comme nts SPUTUM CULTURE (test code = 622-1) 1+ Respiratory driss: Commensal upper respiratory microorganisms only. Gram stain (test code = 664-3) No Epithelial cells MIKAYLA (test code = MIKAYLA) Bacterial pathogens associated with lower respiratory infections were not identified, which include Pseudomonas aeruginosa and Staphylococcus aureus (MRSA or MSSA). [facility] NOYPQWR7048-79-36 16:03:39* Test Item Value Reference Range Interpretation Comme nts SPUTUM CULTURE (test code = 622-1) 1+ Respiratory driss: Commensal upper respiratory microorganisms only. Gram stain (test code = 664-3) No Epithelial cells MIKAYLA (test code = MIKAYLA) Bacterial pathogens associated with lower respiratory infections were not identified, which include Pseudomonas aeruginosa and Staphylococcus aureus (MRSA or MSSA). [facility] [id number] 16:03:39* Test Item Value Reference Range Interpretation Comme nts SPUTUM CULTURE (test code = 622-1) 1+ Respiratory driss: Commensal upper respiratory microorganisms only. Gram stain (test code = 664-3) No Epithelial cells MIKAYLA (test code = MIKAYLA) Bacterial pathogens associated with lower respiratory infections were not identified, which include Pseudomonas aeruginosa and Staphylococcus aureus (MRSA or MSSA). [facility] GLUCOSE (AUTOMATED)2023-03-07 15:04:11* Test Item Value Reference Range Interpretation Comme nts POCT GLU (test code = 5475299519) 117 mg/dL 70-110 H Lab Interpretation (test cod e = 73473-1) Abnormal [facility] GLUCOSE (AUTOMATED)2023-03-07 15:04:11* Test Item Value Reference Range Interpretation Comme nts POCT GLU (test code = 6974221128) 117 mg/dL 70-110 H Lab Interpretation (test cod e = 48890-1) Abnormal [facility] GLUCOSE (AUTOMATED)2023-03-07 15:04:11* Test Item Value Reference Range Interpretation Comme nts POCT GLU (test code = 8777751903) 117 mg/dL 70-110 H Lab Interpretation (test cod e = 27772-4) [facility] L[facility] Nfbe4898-60-09 09:35:00* Test Item Value Reference Range Interpretation Comme nts PH (test code = 2) 7.37 7.35-7.45 PCO2 (test code = 1927956720) 33 See_Comment L [Automated messa ge] The system which generated this result transmitted reference range: 35 - 45 mmHg. The reference range was not used to interpret this result as normal/abnormal. PO2 (test code = 8084019042) 146 See_Comment H [Automated messa ge] The system which generated this result transmitted reference range: 80 - 100 mmHg. The reference range was not used to interpret this result as normal/abnormal. HCO3 (test code = 4308632457) 19 See_Comment L [Automated messa ge] The system which generated this result transmitted reference range: 22 - 26 mEq/L. The reference range was not used to interpret this result as normal/abnormal. BE (test code = 6418309259) -5.8 See_Comment L [Automated messa ge] The system which generated this result transmitted reference range: -3.0 - 3.0 mEq/L. The reference range was not used to interpret this result as normal/abnormal. THB (test code = 5736046708) 12.8 g/dL 13.5-18.0 L %O2HB (test code = 7168871243) 97.6 % 94.0-99.0 %COHB ART (test code = 5052656838) 1.1 % 0.0-1.5 %METHB ART (test code = 2060912911) 0.2 % 0.4-1.5 L VOL%O2 ART (test code = 3547750705) 17.8 % 15.0-23.0 NA (test code = 2211165319) 141 mmol/L 135-145 K+ (test code = 6972124673) 4.4 mmol/L 3.5-5.0 AC CA IONZ (test code = 8460598196) 4.30 mg/dL 4.50-5.30 L GLUCOSE (test code = 3431447188) 97 mg/dL 70-110 LACTIC ACID (test code = 8049050229) 1.13 mmol/L 0.50-2.20 Lab Interpretation (test code = 36027-4) [facility] Lactic Sqof0916-17-28 09:35:00* Test Item Value Reference Range Interpretation Comme nts PH (test code = 2) 7.37 7.35-7.45 PCO2 (test code = 7811203674) 33 See_Comment L [Automated messa ge] The system which generated this result transmitted reference range: 35 - 45 mmHg. The reference range was not used to interpret this result as normal/abnormal. PO2 (test code = 1025313886) 146 See_Comment H [Automated messa ge] The system which generated this result transmitted reference range: 80 - 100 mmHg. The reference range was not used to interpret this result as normal/abnormal. HCO3 (test code = 1885173464) 19 See_Comment L [Automated messa ge] The system which generated this result transmitted reference range: 22 - 26 mEq/L. The reference range was not used to interpret this result as normal/abnormal. BE (test code = 7893977677) -5.8 See_Comment L [Automated messa ge] The system which generated this result transmitted reference range: -3.0 - 3.0 mEq/L. The reference range was not used to interpret this result as normal/abnormal. THB (test code = 3017004973) 12.8 g/dL 13.5-18.0 L %O2HB (test code = 3315794038) 97.6 % 94.0-99.0 %COHB ART (test code = 7644838340) 1.1 % 0.0-1.5 %METHB ART (test code = 9262152101) 0.2 % 0.4-1.5 L VOL%O2 ART (test code = 4893263002) 17.8 % 15.0-23.0 NA (test code = 4109529199) 141 mmol/L 135-145 K+ (test code = 6220174077) 4.4 mmol/L 3.5-5.0 AC CA IONZ (test code = 4228809295) 4.30 mg/dL 4.50-5.30 L GLUCOSE (test code = 7366818495) 97 mg/dL 70-110 LACTIC ACID (test code = 6594311565) 1.13 mmol/L 0.50-2.20 Lab Interpretation (test code = 31770-9) [facility] Lactic [id number] 09:35:00* Test Item Value Reference Range Interpretation Comme nts PH (test code = 2) 7.37 7.35-7.45 PCO2 (test code = 8819341021) 33 See_Comment L [Automated messa ge] The system which generated this result transmitted reference range: 35 - 45 mmHg. The reference range was not used to interpret this result as normal/abnormal. PO2 (test code = 8779868259) 146 See_Comment H [Automated messa ge] The system which generated this result transmitted reference range: 80 - 100 mmHg. The reference range was not used to interpret this result as normal/abnormal. HCO3 (test code = 3895015281) 19 See_Comment L [Automated messa ge] The system which generated this result transmitted reference range: 22 - 26 mEq/L. The reference range was not used to interpret this result as normal/abnormal. BE (test code = 1790373251) -5.8 See_Comment L [Automated messa ge] The system which generated this result transmitted reference range: -3.0 - 3.0 mEq/L. The reference range was not used to interpret this result as normal/abnormal. THB (test code = 2563296839) 12.8 g/dL 13.5-18.0 L %O2HB (test code = 2349799466) 97.6 % 94.0-99.0 %COHB ART (test code = 1494392992) 1.1 % 0.0-1.5 %METHB ART (test code = 3813336781) 0.2 % 0.4-1.5 L VOL%O2 ART (test code = 3244692081) 17.8 % 15.0-23.0 NA (test code = 7157704184) 141 mmol/L 135-145 K+ (test code = 6351389728) 4.4 mmol/L 3.5-5.0 AC CA IONZ (test code = 8860525734) 4.30 mg/dL 4.50-5.30 L GLUCOSE (test code = 2292709215) 97 mg/dL 70-110 LACTIC ACID (test code = 8000975942) 1.13 mmol/L 0.50-2.20 Lab Interpretation (test code = 00867-5) Abnormal [facility] GLUCOSE (AUTOMATED)2023-03-07 09:00:17* Test Item Value Reference Range Interpretation Comme nts POCT GLU (test code = 2656898453) 100 mg/dL 70-110 Lab Interpretation (test cod e = 14729-9) Normal [facility] GLUCOSE (AUTOMATED)2023-03-07 09:00:17* Test Item Value Reference Range Interpretation Comme nts POCT GLU (test code = 7419277702) 100 mg/dL 70-110 Lab Interpretation (test cod e = 80478-7) [facility] L[facility] [id number] 04:16:36* Test Item Value Reference Range Interpretation Comme nts PH (test code = 2) 7.38 7.35-7.45 PCO2 (test code = 3521305170) 33 See_Comment L [Automated messa ge] The system which generated this result transmitted reference range: 35 - 45 mmHg. The reference range was not used to interpret this result as normal/abnormal. PO2 (test code = 0936666668) 151 See_Comment H [Automated messa ge] The system which generated this result transmitted reference range: 80 - 100 mmHg. The reference range was not used to interpret this result as normal/abnormal. HCO3 (test code = 7622145114) 19 See_Comment L [Automated messa ge] The system which generated this result transmitted reference range: 22 - 26 mEq/L. The reference range was not used to interpret this result as normal/abnormal. BE (test code = 9118660403) -5.5 See_Comment L [Automated messa ge] The system which generated this result transmitted reference range: -3.0 - 3.0 mEq/L. The reference range was not used to interpret this result as normal/abnormal. THB (test code = 3086853385) 8.0 g/dL 13.5-18.0 LL %O2HB (test code = 3254817983) 97.9 % 94.0-99.0 %COHB ART (test code = 5860394991) 0.8 % 0.0-1.5 %METHB ART (test code = 4552960791) 0.3 % 0.4-1.5 L VOL%O2 ART (test code = 3281912442) 11.4 % 15.0-23.0 L NA (test code = 7930155721) 140 mmol/L 135-145 K+ (test code = 6368303029) 3.6 mmol/L 3.5-5.0 AC CA IONZ (test code = 1287804404) 4.20 mg/dL 4.50-5.30 L GLUCOSE (test code = 3302528010) 120 mg/dL 70-110 H LACTIC ACID (test code = 1655057000) 1.21 mmol/L 0.50-2.20 Lab Interpretation (test code = 95775-1) [facility] L[facility] [id number] 04:16:36* Test Item Value Reference Range Interpretation Comme nts PH (test code = 2) 7.38 7.35-7.45 PCO2 (test code = 6110821769) 33 See_Comment L [Automated messa ge] The system which generated this result transmitted reference range: 35 - 45 mmHg. The reference range was not used to interpret this result as normal/abnormal. PO2 (test code = 5144201027) 151 See_Comment H [Automated messa ge] The system which generated this result transmitted reference range: 80 - 100 mmHg. The reference range was not used to interpret this result as normal/abnormal. HCO3 (test code = 6633377275) 19 See_Comment L [Automated messa ge] The system which generated this result transmitted reference range: 22 - 26 mEq/L. The reference range was not used to interpret this result as normal/abnormal. BE (test code = 0499593025) -5.5 See_Comment L [Automated messa ge] The system which generated this result transmitted reference range: -3.0 - 3.0 mEq/L. The reference range was not used to interpret this result as normal/abnormal. THB (test code = 5826184540) 8.0 g/dL 13.5-18.0 LL %O2HB (test code = 3476537719) 97.9 % 94.0-99.0 %COHB ART (test code = 8601316260) 0.8 % 0.0-1.5 %METHB ART (test code = 4668642749) 0.3 % 0.4-1.5 L VOL%O2 ART (test code = 2942058417) 11.4 % 15.0-23.0 L NA (test code = 0447645555) 140 mmol/L 135-145 K+ (test code = 6063642125) 3.6 mmol/L 3.5-5.0 AC CA IONZ (test code = 7901223312) 4.20 mg/dL 4.50-5.30 L GLUCOSE (test code = 0708535928) 120 mg/dL 70-110 H LACTIC ACID (test code = 5003924994) 1.21 mmol/L 0.50-2.20 Lab Interpretation (test code = 27170-3) [facility] 03:10:50 * Test Item Value Reference Range Interpretation Comme nts Height (test code = 5351375378) 74 in Weight (test code = 3071672258) 249 lbs Systolic BP (test code = 7351053873) 124 mmHg Diastolic BP (test code = 5014210445) 52 mmHg Heart Rate (test code = 0355747599) 74 bpm MV mean gradient (test code = 6055564937) 4.4 mmHg MV peak gradient (test code = 3220453006) 12.2 mmHg MV pk artemio (test code = 9196876671) 174.7 cm/s MV VTI (test code = 0214347748) 40.5 cm MV V2 mean (test code = 4372669740) 98.20 cm/s MV stenosis pressure 1/2 time (test code = 7824433808) 91.3 ms MV valve area p 1/2 method (test code = 3012545058) 2.44 cm2 MV dec slope (test code = 0564792542) 573.40 cm/s2 MV P1/2t max artemio (test code = 6496608046) 176.70 cm/s BSA (test code = 3605611361) 2.39 m2 Aortic valve mean velocity (test code = 4263224592) 147.2 cm/s Ao peak artemio (test code = 9799222464) 248.8 cm/s Ao VTI (test code = 1223484136) 42.4 cm Ao max PG (test code = 7042283803) 24.80 mm[Hg] AV peak gradient (test code = 4079533619) 24.8 mmHg AV mean gradient (test code = 4450182766) 10.5 mmHg LVOT diameter (test code = 3924932951) 2.0 cm Radiology Study observation (narrative) (test code = 91466-0) MIKAYLA (test code = MIKAYLA) ?Mitral?Valve: 29 [...] captured. The probe was inserted by the creative guru. There was no probe insertion difficulty.There were 1 attempts to insert the probe. Probe in 1304. Probe out 1344. ICU nurse administered sedation meds, ICU nurse monitored sedation recovery. Lidocaine was not administered during the study. There were no complications during the procedure. Pt is intubated and sedated with Propofol prior to RONI. Echo RN did not give any sedation. MR, RN [facility] Lactic [id number] 02:14:01* Test Item Value Reference Range Interpretation Comme nts PH (test code = 2) 7.40 7.35-7.45 PCO2 (test code = 0001534938) 32 See_Comment L [Automated messa ge] The system which generated this result transmitted reference range: 35 - 45 mmHg. The reference range was not used to interpret this result as normal/abnormal. PO2 (test code = 8396897535) 157 See_Comment H [Automated messa ge] The system which generated this result transmitted reference range: 80 - 100 mmHg. The reference range was not used to interpret this result as normal/abnormal. HCO3 (test code = 1263621635) 19 See_Comment L [Automated messa ge] The system which generated this result transmitted reference range: 22 - 26 mEq/L. The reference range was not used to interpret this result as normal/abnormal. BE (test code = 7912200807) -5.1 See_Comment L [Automated messa ge] The system which generated this result transmitted reference range: -3.0 - 3.0 mEq/L. The reference range was not used to interpret this result as normal/abnormal. THB (test code = 3504285897) 8.3 g/dL 13.5-18.0 LL %O2HB (test code = 0056484117) 98.1 % 94.0-99.0 %COHB ART (test code = 4275303810) 0.9 % 0.0-1.5 %METHB ART (test code = 0986046743) 0.2 % 0.4-1.5 L VOL%O2 ART (test code = 1596109693) 11.8 % 15.0-23.0 L NA (test code = 7498092522) 141 mmol/L 135-145 K+ (test code = 2078082061) 3.7 mmol/L 3.5-5.0 AC CA IONZ (test code = 9092780930) 4.20 mg/dL 4.50-5.30 L GLUCOSE (test code = 1487626852) 134 mg/dL 70-110 H LACTIC ACID (test code = 2508082358) 1.31 mmol/L 0.50-2.20 Lab Interpretation (test code = 42575-1) [facility] Lactic [id number] 02:14:01* Test Item Value Reference Range Interpretation Comme nts PH (test code = 2) 7.40 7.35-7.45 PCO2 (test code = 7362540922) 32 See_Comment L [Automated messa ge] The system which generated this result transmitted reference range: 35 - 45 mmHg. The reference range was not used to interpret this result as normal/abnormal. PO2 (test code = 6445827070) 157 See_Comment H [Automated messa ge] The system which generated this result transmitted reference range: 80 - 100 mmHg. The reference range was not used to interpret this result as normal/abnormal. HCO3 (test code = 3937946643) 19 See_Comment L [Automated messa ge] The system which generated this result transmitted reference range: 22 - 26 mEq/L. The reference range was not used to interpret this result as normal/abnormal. BE (test code = 5544975804) -5.1 See_Comment L [Automated messa ge] The system which generated this result transmitted reference range: -3.0 - 3.0 mEq/L. The reference range was not used to interpret this result as normal/abnormal. THB (test code = 8016270329) 8.3 g/dL 13.5-18.0 LL %O2HB (test code = 1327806870) 98.1 % 94.0-99.0 %COHB ART (test code = 5292532095) 0.9 % 0.0-1.5 %METHB ART (test code = 6899160153) 0.2 % 0.4-1.5 L VOL%O2 ART (test code = 9385536363) 11.8 % 15.0-23.0 L NA (test code = 9066242790) 141 mmol/L 135-145 K+ (test code = 1137065926) 3.7 mmol/L 3.5-5.0 AC CA IONZ (test code = 3795221585) 4.20 mg/dL 4.50-5.30 L GLUCOSE (test code = 0891528163) 134 mg/dL 70-110 H LACTIC ACID (test code = 3361093067) 1.31 mmol/L 0.50-2.20 Lab Interpretation (test code = 80873-8) Abnormal [facility] GLUCOSE (AUTOMATED)2023-03-07 01:41:03* Test Item Value Reference Range Interpretation Comme nts POCT GLU (test code = 7347670156) 142 mg/dL 70-110 H Lab Interpretation (test cod e = 24897-8) Abnormal [facility] GLUCOSE (AUTOMATED)2023-03-07 01:41:03* Test Item Value Reference Range Interpretation Comme nts POCT GLU (test code = 9777995105) 142 mg/dL 70-110 H Lab Interpretation (test cod e = 99097-1) Abnormal [facility] GLUCOSE (AUTOMATED)2023-03-06 22:49:48* Test Item Value Reference Range Interpretation Comme nts POCT GLU (test code = 9089620506) 161 mg/dL 70-110 H Lab Interpretation (test cod e = 98917-4) Abnormal [facility] GLUCOSE (AUTOMATED)2023-03-06 22:49:48* Test Item Value Reference Range Interpretation Comme nts POCT GLU (test code = 7464793327) 161 mg/dL 70-110 H Lab Interpretation (test cod e = 82238-3) Abnormal [facility] WITH [id number] 21:08:00* Test Item Value Reference Range Interpretation Comme nts WBC (test code = 6690-2) 21.30 See_Comment H [Automated messa ge] The system which generated this result transmitted reference range: 4.20 - 10.70 10*3/?L. The reference range was not used to interpret this result as normal/abnormal. RBC (test code = 789-8) 2.69 See_Comment L [Automated messa ge] The system which generated this result transmitted reference range: 4.26 - 5.52 10*6/?L. The reference range was not used to interpret this result as normal/abnormal. HGB (test code = 718-7) 7.6 g/dL 12.2-16.4 L HCT (test code = 4544-3) 24.3 % 38.4-49.3 L MCV (test code = 787-2) 90.3 fL 81.7-95.6 MCH (test code = 785-6) 28.3 pg 26.1-32.7 MCHC (test code = 786-4) 31.3 g/dL 31.2-35.0 RDW-SD (test code = 60293-8) 71.7 fL 38.5-51.6 H RDW-CV (test code = 788-0) 23.4 % 12.1-15.4 H PLT (test code = 777-3) 40 See_Comment LL [Automated messa ge] The system which generated this result transmitted reference range: 150 - 328 10*3/?L. The reference range was not used to interpret this result as normal/abnormal. MPV (test code = 37455-4) Not Measured IPF % (test code = 3269944181) 18.2 % 1.2-10.7 H Platelet count measured by fluorescence method. NRBC/100 WBC (test code = 4041120057) 0.2 See_Comment [Automated [employer] ssage] The system which generated this result transmitted reference range: 0.0 - 10.0 /100 WBCs. The reference range was not used to interpret this result as normal/abnormal. NRBC x10^3 (test code = 0384177936) 0.04 See_Comment [Automated messa ge] The system which generated this result transmitted reference range: 10*3/?L. The reference range was not used to interpret this result as normal/abnormal. GRAN MAT (NEUT) % (test code = 770-8) 90.2 % IMM GRAN % (test code = 3591691597) 1.70 % LYMPH % (test code = 736-9) 4.5 % MONO % (test code = 5905-5) 3.5 % EOS % (test code = 713-8) 0.0 % BASO % (test code = 706-2) 0.1 % GRAN MAT x10^3(ANC) (test code = 6008367966) 19.22 10*3/uL 1.99-6.95 H IMM GRAN x10^3 (test code = 0817486120) 0.36 10*3/uL 0.00-0.06 H LYMPH x10^3 (test code = 731-0) 0.95 10*3/uL 1.09-3.23 L MONO x10^3 (test code = 742-7) 0.74 10*3/uL 0.36-1.02 EOS x10^3 (test code = 711-2) 0.06-0.53 L BASO x10^3 (test code = 704-7) 0.03 10*3/uL 0.01-0.09 BASO STIPPLING (test code = 703-9) Present A POLYCHROMASIA (test code = 29625-6) 2+ See_Comment [Automated messa ge] The system which generated this result transmitted reference range: 2+. The reference range was not used to interpret this result as normal/abnormal. SCHISTOCYTES (test code = 800-3) 1+ A BANDS (test code = 9593860858) Increased A Lab Interpretation (test code = 68127-7) Abnormal [facility] WITH [id number] 21:08:00* Test Item Value Reference Range Interpretation Comme nts WBC (test code = 6690-2) 21.30 See_Comment H [Automated messa ge] The system which generated this result transmitted reference range: 4.20 - 10.70 10*3/?L. The reference range was not used to interpret this result as normal/abnormal. RBC (test code = 789-8) 2.69 See_Comment L [Automated messa ge] The system which generated this result transmitted reference range: 4.26 - 5.52 10*6/?L. The reference range was not used to interpret this result as normal/abnormal. HGB (test code = 718-7) 7.6 g/dL 12.2-16.4 L HCT (test code = 4544-3) 24.3 % 38.4-49.3 L MCV (test code = 787-2) 90.3 fL 81.7-95.6 MCH (test code = 785-6) 28.3 pg 26.1-32.7 MCHC (test code = 786-4) 31.3 g/dL 31.2-35.0 RDW-SD (test code = 70357-3) 71.7 fL 38.5-51.6 H RDW-CV (test code = 788-0) 23.4 % 12.1-15.4 H PLT (test code = 777-3) 40 See_Comment LL [Automated [employer]] The system which generated this result transmitted reference range: 150 - 328 10*3/?L. The reference range was not used to interpret this result as normal/abnormal. MPV (test code = 68532-5) Not Measured IPF % (test code = 6651582987) 18.2 % 1.2-10.7 H Platelet count measured by fluorescence method. NRBC/100 WBC (test code = 8707075532) 0.2 See_Comment [Automated [employer] [place] ssage] The system which generated this result transmitted reference range: 0.0 - 10.0 /100 WBCs. The reference range was not used to interpret this result as normal/abnormal. NRBC x10^3 (test code = 5116755096) 0.04 See_Comment [Automated [employer]] The system which generated this result transmitted reference range: 10*3/?L. The reference range was not used to interpret this result as normal/abnormal. GRAN MAT (NEUT) % (test code = 770-8) 90.2 % IMM GRAN % (test code = 6776060993) 1.70 % LYMPH % (test code = 736-9) 4.5 % MONO % (test code = 5905-5) 3.5 % EOS % (test code = 713-8) 0.0 % BASO % (test code = 706-2) 0.1 % GRAN MAT x10^3(ANC) (test code = 0737590449) 19.22 10*3/uL 1.99-6.95 H IMM GRAN x10^3 (test code = 7140212709) 0.36 10*3/uL 0.00-0.06 H LYMPH x10^3 (test code = 731-0) 0.95 10*3/uL 1.09-3.23 L MONO x10^3 (test code = 742-7) 0.74 10*3/uL 0.36-1.02 EOS x10^3 (test code = 711-2) 0.06-0.53 L BASO x10^3 (test code = 704-7) 0.03 10*3/uL 0.01-0.09 BASO STIPPLING (test code = 703-9) Present A POLYCHROMASIA (test code = 89769-0) 2+ See_Comment [Automated [employer]] The system which generated this result transmitted reference range: 2+. The reference range was not used to interpret this result as normal/abnormal. SCHISTOCYTES (test code = 800-3) 1+ A BANDS (test code = 1030203722) Increased A Lab Interpretation (test code = 73406-2) Abnormal [facility] GLUCOSE (AUTOMATED)2023-03-06 17:49:47* Test Item Value Reference Range Interpretation Comme nts POCT GLU (test code = 5597046975) 191 mg/dL 70-110 H Lab Interpretation (test cod e = 78011-9) Abnormal [facility] GLUCOSE (AUTOMATED)2023-03-06 17:49:47* Test Item Value Reference Range Interpretation Comme nts POCT GLU (test code = 9181491418) 191 mg/dL 70-110 H Lab Interpretation (test cod e = 53941-7) [facility] [id number] 16:01:59* Test Item Value Reference Range Interpretation Comme nts Blood Culture-Aerobic (test code = 42318-0) No organisms isolated No growth Previous preliminary verified result was Culture In Progress on 03/01/2023 at 1401 CDTPrevious preliminary verified result was No growth at 24 hours on 03/02/2023 at 1101 CDTPrevious preliminary verified result was No growth at 48 hours on 03/03/2023 at 1101 CDTPrevious preliminary verified result was No growth at 72 hours on 03/04/2023 at 1101 CDT Blood Culture-Anaerobic (test code = 15381-6) No organisms isolated No growth Previous preliminary verified result was Culture In Progress on 03/01/2023 at 1401 CDTPrevious preliminary verified result was No growth at 24 hours on 03/02/2023 at 1101 CDTPrevious preliminary verified result was No growth at 48 hours on 03/03/2023 at 1101 CDTPrevious preliminary verified result was No growth at 72 hours on 03/04/2023 at 110 CDT Lab Interpretation (test code = 89285-0) [facility] CULTURE [id number] 16:01:59* Test Item Value Reference Range Interpretation Comme nts Blood Culture-Aerobic (test code = 62913-6) No organisms isolated No growth Previous preliminary verified result was Culture In Progress on 03/01/2023 at 1401 CDTPrevious preliminary verified result was No growth at 24 hours on 03/02/2023 at 1101 CDTPrevious preliminary verified result was No growth at 48 hours on 03/03/2023 at 1101 CDTPrevious preliminary verified result was No growth at 72 hours on 03/04/2023 at 1101 CDT Blood Culture-Anaerobic (test code = 04533-9) No organisms isolated No growth Previous preliminary verified result was Culture In Progress on 03/01/2023 at 1401 CDTPrevious preliminary verified result was No growth at 24 hours on 03/02/2023 at 1101 CDTPrevious preliminary verified result was No growth at 48 hours on 03/03/2023 at 1101 CDTPrevious preliminary verified result was No growth at 72 hours on 03/04/2023 at 1101 CDT Lab Interpretation (test code = 88428-3) [facility] CULTURE [id number] 16:01:59* Test Item Value Reference Range Interpretation Comme nts Blood Culture-Aerobic (test code = 17217-0) No organisms isolated No growth Previous preliminary verified result was Culture In Progress on 03/01/2023 at 1401 CDTPrevious preliminary verified result was No growth at 24 hours on 03/02/2023 at 1101 CDTPrevious preliminary verified result was No growth at 48 hours on 03/03/2023 at 1101 CDTPrevious preliminary verified result was No growth at 72 hours on 03/04/2023 at 1101 CDT Blood Culture-Anaerobic (test code = 53363-2) No organisms isolated No growth Previous preliminary verified result was Culture In Progress on 03/01/2023 at 1401 CDTPrevious preliminary verified result was No growth at 24 hours on 03/02/2023 at 1101 CDTPrevious preliminary verified result was No growth at 48 hours on 03/03/2023 at 1101 CDTPrevious preliminary verified result was No growth at 72 hours on 03/04/2023 at 1101 CDT Lab Interpretation (test code = 96942-5) [facility] CULTURE [id number] 16:01:59* Test Item Value Reference Range Interpretation Comme nts Blood Culture-Aerobic (test code = 92497-4) No organisms isolated No growth Previous preliminary verified result was Culture In Progress on 03/01/2023 at 1401 CDTPrevious preliminary verified result was No growth at 24 hours on 03/02/2023 at 1101 CDTPrevious preliminary verified result was No growth at 48 hours on 03/03/2023 at 1101 CDTPrevious preliminary verified result was No growth at 72 hours on 03/04/2023 at 1101 CDT Blood Culture-Anaerobic (test code = 88546-7) No organisms isolated No growth Previous preliminary verified result was Culture In Progress on 03/01/2023 at 1401 CDTPrevious preliminary verified result was No growth at 24 hours on 03/02/2023 at 1101 CDTPrevious preliminary verified result was No growth at 48 hours on 03/03/2023 at 1101 CDTPrevious preliminary verified result was No growth at 72 hours on 03/04/2023 at 1101 CDT Lab Interpretation (test code = 27410-7) [facility] [id number] 16:01:59* Test Item Value Reference Range Interpretation Comme nts Blood Culture-Aerobic (test code = 65400-2) No organisms isolated No growth Previous preliminary verified result was Culture In Progress on 03/01/2023 at 1401 CDTPrevious preliminary verified result was No growth at 24 hours on 03/02/2023 at 1101 CDTPrevious preliminary verified result was No growth at 48 hours on 03/03/2023 at 1101 CDTPrevious preliminary verified result was No growth at 72 hours on 03/04/2023 at 1101 CDT Blood Culture-Anaerobic (test code = 33394-6) No organisms isolated No growth Previous preliminary verified result was Culture In Progress on 03/01/2023 at 1401 CDTPrevious preliminary verified result was No growth at 24 hours on 03/02/2023 at 1101 CDTPrevious preliminary verified result was No growth at 48 hours on 03/03/2023 at 1101 CDTPrevious preliminary verified result was No growth at 72 hours on 03/04/2023 at 1101 CDT Lab Interpretation (test code = 41815-4) Normal [facility] GLUCOSE (AUTOMATED)2023-03-06 13:41:35* Test Item Value Reference Range Interpretation Comme nts POCT GLU (test code = 7836419555) 187 mg/dL 70-110 H Lab Interpretation (test cod e = 16365-7) Abnormal [facility] GLUCOSE (AUTOMATED)2023-03-06 13:41:35* Test Item Value Reference Range Interpretation Comme nts POCT GLU (test code = 2256700553) 187 mg/dL 70-110 H Lab Interpretation (test cod e = 81259-6) [facility] RBC (in units), 1 Units 2023-03-06 13:01:17* Test Item Value Reference Range Interpretation Comme nts Cross Match Result (test code = 4409) Compatible ISBT Blood Type Code (test code = 824332) 5100 Unit Blood Type (test code = 4410) O Pos Unit Number (test code = 4411) [id number] Blood Expiration Date & Time (test code = 511235) [id number] Status Information (test code = 4412) Issued Product Identification (test code = 4413) Red Blood Cells Product Code (test code = 4414) [id number] Performed at [facility] Blood [address] Free: [phone] No. [id number] [facility] RBC (in units), 1 Units 2023-03-06 13:01:17* Test Item Value Reference Range Interpretation Comme nts Cross Match Result (test code = 4409) Compatible ISBT Blood Type Code (test code = 387568) 5100 Unit Blood Type (test code = 4410) O Pos Unit Number (test code = 4411) [id number] Blood Expiration Date & Time (test code = 022593) [id number] Status Information (test code = 4412) Issued Product Identification (test code = 4413) Red Blood Cells Product Code (test code = 4414) [id number] Performed at [address] Free: [phone] No. [id number] [facility] Packed RBC (in units), 1 Units 2023-03-06 13:01:17* Test Item Value Reference Range Interpretation Comme nts Cross Match Result (test code = 4409) Compatible ISBT Blood Type Code (test code = 931189) 5100 Unit Blood Type (test code = 4410) O Pos Unit Number (test code = 4411) [id number] Blood Expiration Date & Time (test code = 674187) [id number] Status Information (test code = 4412) Issued Product Identification (test code = 4413) Red Blood Cells Product Code (test code = 4414) [id number] Performed at [address] Free: [phone] No. [id number] [facility]CE [id number] 12:16:00 * Test Item Value Reference Range Interpretation Comme nts ABO & RH (test code = 20) O POSITIVE IAT (test code = 1185) Negative [facility]CE [id number] 12:16:00 * Test Item Value Reference Range Interpretation Comme nts ABO & RH (test code = 20) O POSITIVE IAT (test code = 1185) Negative [facility]CE [id number] 12:16:00 * Test Item Value Reference Range Interpretation Comme nts ABO & RH (test code = 20) O POSITIVE IAT (test code = 1185) [facility] Test Item Value Reference Range Interpretation Comme nts APTT Patient (test code = 3173-2) 42 See_Comment H [Automated messa ge] The system which generated this result transmitted reference range: 26 - 36 Seconds. The reference range was not used to interpret this result as normal/abnormal. Lab Interpretation (test code = 66670-1) Abnormal [place] 50633023-07-05 09:03:04* Test Item Value Reference Range Interpretation Comme nts APTT Patient (test code = 3173-2) 42 See_Comment H [Automated messa ge] The system which generated this result transmitted reference range: 26 - 36 Seconds. The reference range was not used to interpret this result as normal/abnormal. Lab Interpretation (test code = 01359-9) Abnormal [facility] WITHOUT DIFF - For acute bleeding or takrlmrm9880-91-32 08:56:04* Test Item Value Reference Range Interpretation Comme nts WBC (test code = 6690-2) 33.89 See_Comment H [Automated messa ge] The system which generated this result transmitted reference range: 4.20 - 10.70 10*3/?L. The reference range was not used to interpret this result as normal/abnormal. RBC (test code = 789-8) 2.38 See_Comment L [Automated message] The system which generated this result transmitted reference range: 4.26 - 5.52 10*6/?L. The reference range was not used to interpret this result as normal/abnormal. HGB (test code = 718-7) 7.1 g/dL 12.2-16.4 L HCT (test code = 4544-3) 22.3 % 38.4-49.3 L MCH (test code = 785-6) 29.8 pg 26.1-32.7 MCV (test code = 787-2) 93.7 fL 81.7-95.6 MCHC (test code = 786-4) 31.8 g/dL 31.2-35.0 PLT (test code = 777-3) 51 See_Comment L [Automated message] The system which generated this result transmitted reference range: 150 - 328 10*3/?L. The reference range was not used to interpret this result as normal/abnormal. MPV (test code = 34240-5) Not Measured RDW-CV (test code = 788-0) 24.3 % 12.1-15.4 H RDW-SD (test code = 92004-3) 78.3 fL 38.5-51.6 H NRBC x10^3 (test code = 5319098927) 0.08 See_Comment [Automated messa ge] The system which generated this result transmitted reference range: 10*3/?L. The reference range was not used to interpret this result as normal/abnormal. NRBC/100 WBC (test code = 8973301839) 0.2 See_Comment [Automated messa ge] The system which generated this result transmitted reference range: 0.0 - 10.0 /100 WBCs. The reference range was not used to interpret this result as normal/abnormal. IPF % (test code = 2400891200) 24.2 % 1.2-10.7 H Platelet count measured by fluorescence method. Lab Interpretation (test code = 77601-7) Abnormal [facility] WITHOUT DIFF - For acute bleeding or zspcezez6397-75-19 08:56:04* Test Item Value Reference Range Interpretation Comme nts WBC (test code = 6690-2) 33.89 See_Comment H [Automated messa ge] The system which generated this result transmitted reference range: 4.20 - 10.70 10*3/?L. The reference range was not used to interpret this result as normal/abnormal. RBC (test code = 789-8) 2.38 See_Comment L [Automated message] The system which generated this result transmitted reference range: 4.26 - 5.52 10*6/?L. The reference range was not used to interpret this result as normal/abnormal. HGB (test code = 718-7) 7.1 g/dL 12.2-16.4 L HCT (test code = 4544-3) 22.3 % 38.4-49.3 L MCH (test code = 785-6) 29.8 pg 26.1-32.7 MCV (test code = 787-2) 93.7 fL 81.7-95.6 MCHC (test code = 786-4) 31.8 g/dL 31.2-35.0 PLT (test code = 777-3) 51 See_Comment L [Automated message] The system which generated this result transmitted reference range: 150 - 328 10*3/?L. The reference range was not used to interpret this result as normal/abnormal. MPV (test code = 20795-0) Not Measured RDW-CV (test code = 788-0) 24.3 % 12.1-15.4 H RDW-SD (test code = 29092-4) 78.3 fL 38.5-51.6 H NRBC x10^3 (test code = 4652935219) 0.08 See_Comment [Automated [employer]] The system which generated this result transmitted reference range: 10*3/?L. The reference range was not used to interpret this result as normal/abnormal. NRBC/100 WBC (test code = 0395458742) 0.2 See_Comment [Automated [employer]] The system which generated this result transmitted reference range: 0.0 - 10.0 /100 WBCs. The reference range was not used to interpret this result as normal/abnormal. IPF % (test code = 5175449480) 24.2 % 1.2-10.7 H Platelet count measured by fluorescence method. Lab Interpretation (test code = 66679-4) Abnormal [facility] WITHOUT DIFF - For acute bleeding or ezlibfss3398-79-78 08:56:04* Test Item Value Reference Range Interpretation Comme nts WBC (test code = 6690-2) 33.89 See_Comment H [Automated [employer]] The system which generated this result transmitted reference range: 4.20 - 10.70 10*3/?L. The reference range was not used to interpret this result as normal/abnormal. RBC (test code = 789-8) 2.38 See_Comment L [Automated message] The system which generated this result transmitted reference range: 4.26 - 5.52 10*6/?L. The reference range was not used to interpret this result as normal/abnormal. HGB (test code = 718-7) 7.1 g/dL 12.2-16.4 L HCT (test code = 4544-3) 22.3 % 38.4-49.3 L MCH (test code = 785-6) 29.8 pg 26.1-32.7 MCV (test code = 787-2) 93.7 fL 81.7-95.6 MCHC (test code = 786-4) 31.8 g/dL 31.2-35.0 PLT (test code = 777-3) 51 See_Comment L [Automated message] The system which generated this result transmitted reference range: 150 - 328 10*3/?L. The reference range was not used to interpret this result as normal/abnormal. MPV (test code = 15451-1) Not Measured RDW-CV (test code = 788-0) 24.3 % 12.1-15.4 H RDW-SD (test code = 66352-8) 78.3 fL 38.5-51.6 H NRBC x10^3 (test code = 7151669004) 0.08 See_Comment [Automated [employer]] The system which generated this result transmitted reference range: 10*3/?L. The reference range was not used to interpret this result as normal/abnormal. NRBC/100 WBC (test code = 8123476792) 0.2 See_Comment [Automated [employer]] The system which generated this result transmitted reference range: 0.0 - 10.0 /100 WBCs. The reference range was not used to interpret this result as normal/abnormal. IPF % (test code = 7115693227) 24.2 % 1.2-10.7 H Platelet count measured by fluorescence method. Lab Interpretation (test code = 02609-3) Abnormal [facility]. METABOLIC PANEL (54069)2023-03-06 08:55:03* Test Item Value Reference Range Interpretation Comme nts NA (test code = 6626103884) 139 mmol/L 135-145 K (test code = 7109806362) 4.1 mmol/L 3.5-5.0 CL (test code = 3611721816) 109 mmol/L 98-108 H CO2 TOTAL (test code = 0804417849) 21 mmol/L 23-31 L AGAP (test code = 2561957795) 9 2-16 BUN (test code = 3467280288) 44 mg/dL 7-23 H GLUCOSE (test code = 5008651275) 169 mg/dL 70-110 H CREATININE (test code = 9641572955) 2.93 mg/dL 0.60-1.25 H TOTAL BILI (test code = 3940958296) 2.1 mg/dL 0.1-1.1 H CALCIUM (test code = 5391635207) 7.1 mg/dL 8.6-10.6 L T PROTEIN (test code = 7613699018) 5.6 g/dL 6.3-8.2 L ALBUMIN (test code = 6823912999) 2.5 g/dL 3.5-5.0 L ALK PHOS (test code = 1359396396) 85 U/L 34-122 ALTv (test code = 1742-6) 44 U/L 5-50 AST(SGOT) (test code = 1681446223) 80 U/L 13-40 H eGFR (test code = 7336842665) 22.0 mL/min/1.73m2 MIKAYLA (test code = MIKAYLA) Association of [...] or abnormalities in imaging tests). Lab Interpretation (test code = 28371-7) Abnormal [facility]. METABOLIC PANEL (73864)2023-03-06 08:55:03* Test Item Value Reference Range Interpretation Comme nts NA (test code = 8883874637) 139 mmol/L 135-145 K (test code = 8788637277) 4.1 mmol/L 3.5-5.0 CL (test code = 5959336164) 109 mmol/L 98-108 H CO2 TOTAL (test code = 6440686019) 21 mmol/L 23-31 L AGAP (test code = 6306951086) 9 2-16 BUN (test code = 0148068691) 44 mg/dL 7-23 H GLUCOSE (test code = 3227902274) 169 mg/dL 70-110 H CREATININE (test code = 9050287587) 2.93 mg/dL 0.60-1.25 H TOTAL BILI (test code = 7218335570) 2.1 mg/dL 0.1-1.1 H CALCIUM (test code = 0427558190) 7.1 mg/dL 8.6-10.6 L T PROTEIN (test code = 8258756799) 5.6 g/dL 6.3-8.2 L ALBUMIN (test code = 6701609567) 2.5 g/dL 3.5-5.0 L ALK PHOS (test code = 0638917931) 85 U/L 34-122 ALTv (test code = 1742-6) 44 U/L 5-50 AST(SGOT) (test code = 5565883485) 80 U/L 13-40 H eGFR (test code = 7127002228) 22.0 mL/min/1.73m2 MIKAYLA (test code = MIKAYLA) Association of [...] or abnormalities in imaging tests). Lab Interpretation (test code = 36266-4) Abnormal [facility]. METABOLIC PANEL (14887)2023-03-06 08:55:03* Test Item Value Reference Range Interpretation Comme nts NA (test code = 0176902415) 139 mmol/L 135-145 K (test code = 4437194083) 4.1 mmol/L 3.5-5.0 CL (test code = 9316736132) 109 mmol/L 98-108 H CO2 TOTAL (test code = 5231581953) 21 mmol/L 23-31 L AGAP (test code = 8797378826) 9 2-16 BUN (test code = 8020518519) 44 mg/dL 7-23 H GLUCOSE (test code = 2356929219) 169 mg/dL 70-110 H CREATININE (test code = 7394708574) 2.93 mg/dL 0.60-1.25 H TOTAL BILI (test code = 0293738955) 2.1 mg/dL 0.1-1.1 H CALCIUM (test code = 1032052266) 7.1 mg/dL 8.6-10.6 L T PROTEIN (test code = 6672118676) 5.6 g/dL 6.3-8.2 L ALBUMIN (test code = 6476168908) 2.5 g/dL 3.5-5.0 L ALK PHOS (test code = 3212510592) 85 U/L 34-122 ALTv (test code = 1742-6) 44 U/L 5-50 AST(SGOT) (test code = 3472450103) 80 U/L 13-40 H eGFR (test code = 3216718558) 22.0 mL/min/1.73m2 MIKAYLA (test code = MIKAYLA) Association of [...] or abnormalities in imaging tests). Lab Interpretation (test code = 05988-7) [facility] Test Item Value Reference Range Interpretation Comme nts MAGNESIUM (test code = 0705843861) 2.2 mg/dL 1.7-2.4 Lab Interpretation (test cod e = 59915-8) [facility]* Test Item Value Reference Range Interpretation Comme nts PHOSPHORUS (test code = 5735904653) 5.0 mg/dL 2.5-5.0 Lab Interpretation (test cod e = 18471-4) [facility] (85804)2023-03-06 08:55:03* Test Item Value Reference Range Interpretation Comme nts NA (test code = 2716379518) 139 mmol/L 135-145 K (test code = 1055286943) 4.1 mmol/L 3.5-5.0 CL (test code = 3636668566) 109 mmol/L 98-108 H CO2 TOTAL (test code = 0454123774) 21 mmol/L 23-31 L AGAP (test code = 0422989475) 9 2-16 BUN (test code = 8757331186) 44 mg/dL 7-23 H GLUCOSE (test code = 7257988525) 169 mg/dL 70-110 H CREATININE (test code = 6245957674) 2.93 mg/dL 0.60-1.25 H TOTAL BILI (test code = 4693337375) 2.1 mg/dL 0.1-1.1 H CALCIUM (test code = 4115518921) 7.1 mg/dL 8.6-10.6 L T PROTEIN (test code = 0907977713) 5.6 g/dL 6.3-8.2 L ALBUMIN (test code = 7528444312) 2.5 g/dL 3.5-5.0 L ALK PHOS (test code = 0290159973) 85 U/L 34-122 ALTv (test code = 1742-6) 44 U/L 5-50 AST(SGOT) (test code = 0288314532) 80 U/L 13-40 H eGFR (test code = 0239766166) 22.0 mL/min/1.73m2 MIKAYLA (test code = MIKAYLA) Association of [...] or abnormalities in imaging tests). Lab Interpretation (test code = 16723-2) [facility]* Test Item Value Reference Range Interpretation Comme nts MAGNESIUM (test code = 5359660967) 2.2 mg/dL 1.7-2.4 Lab Interpretation (test cod e = 28010-8) [facility]* Test Item Value Reference Range Interpretation Comme nts PHOSPHORUS (test code = 2249942076) 5.0 mg/dL 2.5-5.0 Lab Interpretation (test cod e = 19670-0) [facility] LACTIC [id number] 08:32:32* Test Item Value Reference Range Interpretation Comme nts PH (test code = 2546213193) 7.34 7.32-7.42 PCO2 ANANDA (test code = 7630159628) 41 See_Comment [Automated messa ge] The system which generated this result transmitted reference range: 41 - 51 mmHg. The reference range was not used to interpret this result as normal/abnormal. PO2 ANANDA (test code = 2113614906) 41 See_Comment H [Automated messa ge] The system which generated this result transmitted reference range: 25 - 40 mmHg. The reference range was not used to interpret this result as normal/abnormal. HCO3 ANANDA (test code = 1816835278) 22 See_Comment L [Automated messa ge] The system which generated this result transmitted reference range: 24 - 28 mEq/L. The reference range was not used to interpret this result as normal/abnormal. AC VBE(BEAKER) (test code = 6761549462) -3.9 mEq/L THB ANANDA (test code = 2955800706) 7.3 g/dL 13.5-18.0 LL %O2HB ANANAD (test code = 0361512747) 70.5 % 52.0-63.0 H %COHB ANANDA (test code = 9175177242) 1.0 % 0.0-1.5 %METHB ANANDA (test code = 0342200515) 0.5 % 0.4-1.5 VOL%O2 ANANDA (test code = 2808775021) 7.3 % 6.0-12.0 NA (test code = 2280751871) 141 mmol/L 135-145 K+ (test code = 3565850883) 4.0 mmol/L 3.5-5.0 AC CA IONZ (test code = 9161031575) 4.20 mg/dL 4.50-5.30 L GLUCOSE (test code = 3375238559) 176 mg/dL 70-110 H LACTIC ACID (test code = 8261715471) 1.34 mmol/L 0.50-2.20 Lab Interpretation (test code = 22049-0) [facility] LACTIC [id number] 08:32:32* Test Item Value Reference Range Interpretation Comme nts PH (test code = 9598878816) 7.34 7.32-7.42 PCO2 ANANDA (test code = 2700028886) 41 See_Comment [Automated messa ge] The system which generated this result transmitted reference range: 41 - 51 mmHg. The reference range was not used to interpret this result as normal/abnormal. PO2 ANANDA (test code = 6852115356) 41 See_Comment H [Automated messa ge] The system which generated this result transmitted reference range: 25 - 40 mmHg. The reference range was not used to interpret this result as normal/abnormal. HCO3 ANANDA (test code = 1752514164) 22 See_Comment L [Automated messa ge] The system which generated this result transmitted reference range: 24 - 28 mEq/L. The reference range was not used to interpret this result as normal/abnormal. AC VBE(BEAKER) (test code = 2709865204) -3.9 mEq/L THB ANANDA (test code = 6976584108) 7.3 g/dL 13.5-18.0 LL %O2HB ANANDA (test code = 2638591757) 70.5 % 52.0-63.0 H %COHB ANANDA (test code = 5733086078) 1.0 % 0.0-1.5 %METHB ANANDA (test code = 1187868588) 0.5 % 0.4-1.5 VOL%O2 ANANDA (test code = 1192880410) 7.3 % 6.0-12.0 NA (test code = 5732548287) 141 mmol/L 135-145 K+ (test code = 0416672445) 4.0 mmol/L 3.5-5.0 AC CA IONZ (test code = 7849136464) 4.20 mg/dL 4.50-5.30 L GLUCOSE (test code = 6395259371) 176 mg/dL 70-110 H LACTIC ACID (test code = 4615822214) 1.34 mmol/L 0.50-2.20 Lab Interpretation (test code = 34263-8) [facility]ACTIC [id number] 08:32:32* Test Item Value Reference Range Interpretation Comme nts PH (test code = 6771466288) 7.34 7.32-7.42 PCO2 ANANDA (test code = 2320187122) 41 See_Comment [Automated messa ge] The system which generated this result transmitted reference range: 41 - 51 mmHg. The reference range was not used to interpret this result as normal/abnormal. PO2 ANANDA (test code = 8588823649) 41 See_Comment H [Automated messa ge] The system which generated this result transmitted reference range: 25 - 40 mmHg. The reference range was not used to interpret this result as normal/abnormal. HCO3 ANANDA (test code = 8364478261) 22 See_Comment L [Automated messa ge] The system which generated this result transmitted reference range: 24 - 28 mEq/L. The reference range was not used to interpret this result as normal/abnormal. AC VBE(BEAKER) (test code = 6863685241) -3.9 mEq/L THB ANANDA (test code = 3443381068) 7.3 g/dL 13.5-18.0 LL %O2HB NAANDA (test code = 2687010878) 70.5 % 52.0-63.0 H %COHB ANANDA (test code = 0430369579) 1.0 % 0.0-1.5 %METHB ANANDA (test code = 3780664097) 0.5 % 0.4-1.5 VOL%O2 ANANDA (test code = 9350257256) 7.3 % 6.0-12.0 NA (test code = 3659976312) 141 mmol/L 135-145 K+ (test code = 3249688699) 4.0 mmol/L 3.5-5.0 AC CA IONZ (test code = 6015997452) 4.20 mg/dL 4.50-5.30 L GLUCOSE (test code = 7463394023) 176 mg/dL 70-110 H LACTIC ACID (test code = 7286864014) 1.34 mmol/L 0.50-2.20 Lab Interpretation (test code = 98036-8) [facility] LACTIC [id number] 08:32:32* Test Item Value Reference Range Interpretation Comme nts PH (test code = 5019096559) 7.34 7.32-7.42 PCO2 ANANDA (test code = 7019104475) 41 See_Comment [Automated messa ge] The system which generated this result transmitted reference range: 41 - 51 mmHg. The reference range was not used to interpret this result as normal/abnormal. PO2 ANANDA (test code = 6780396916) 41 See_Comment H [Automated messa ge] The system which generated this result transmitted reference range: 25 - 40 mmHg. The reference range was not used to interpret this result as normal/abnormal. HCO3 ANANDA (test code = 2341305489) 22 See_Comment L [Automated messa ge] The system which generated this result transmitted reference range: 24 - 28 mEq/L. The reference range was not used to interpret this result as normal/abnormal. AC VBE(BEAKER) (test code = 4159921361) -3.9 mEq/L THB ANANDA (test code = 8435344787) 7.3 g/dL 13.5-18.0 LL %O2HB ANANDA (test code = 6737485251) 70.5 % 52.0-63.0 H %COHB ANANDA (test code = 1145742066) 1.0 % 0.0-1.5 %METHB ANANDA (test code = 4425322734) 0.5 % 0.4-1.5 VOL%O2 ANANDA (test code = 5544820352) 7.3 % 6.0-12.0 NA (test code = 0485578730) 141 mmol/L 135-145 K+ (test code = 7404028106) 4.0 mmol/L 3.5-5.0 AC CA IONZ (test code = 4482834027) 4.20 mg/dL 4.50-5.30 L GLUCOSE (test code = 2768927674) 176 mg/dL 70-110 H LACTIC ACID (test code = 8419349501) 1.34 mmol/L 0.50-2.20 Lab Interpretation (test code = 98174-2) Abnormal [facility] GLUCOSE (AUTOMATED)2023-03-06 05:05:56* Test Item Value Reference Range Interpretation Comme nts POCT GLU (test code = 7116136585) 177 mg/dL 70-110 H Lab Interpretation (test cod e = 36409-7) Abnormal [facility] GLUCOSE (AUTOMATED)2023-03-06 05:05:56* Test Item Value Reference Range Interpretation Comme nts POCT GLU (test code = 6909258593) 177 mg/dL 70-110 H Lab Interpretation (test cod e = 25151-0) Abnormal [facility] GLUCOSE (AUTOMATED)2023-03-06 01:34:41* Test Item Value Reference Range Interpretation Comme nts POCT GLU (test code = 3300972810) 194 mg/dL 70-110 H Lab Interpretation (test cod e = 05010-8) Abnormal [facility] GLUCOSE (AUTOMATED)2023-03-06 01:34:41* Test Item Value Reference Range Interpretation Comme nts POCT GLU (test code = 8646965899) 194 mg/dL 70-110 H Lab Interpretation (test cod e = 16007-4) Abnormal [facility] GLUCOSE (AUTOMATED)2023-03-06 01:34:40* Test Item Value Reference Range Interpretation Comme nts POCT GLU (test code = 4453995549) 12 mg/dL 70-110 LL Lab Interpretation (test cod e = 12859-7) Abnormal [facility] GLUCOSE (AUTOMATED)2023-03-06 01:34:40* Test Item Value Reference Range Interpretation Comme nts POCT GLU (test code = 2653327355) 12 mg/dL 70-110 LL Lab Interpretation (test cod e = 14072-5) Abnormal [facility] WITHOUT DIFF - For acute bleeding or gnpqkpid4846-72-64 21:13:20* Test Item Value Reference Range Interpretation Comme nts WBC (test code = 6690-2) 31.81 See_Comment H [Automated messa ge] The system which generated this result transmitted reference range: 4.20 - 10.70 10*3/?L. The reference range was not used to interpret this result as normal/abnormal. RBC (test code = 789-8) 2.48 See_Comment L [Automated message] The system which generated this result transmitted reference range: 4.26 - 5.52 10*6/?L. The reference range was not used to interpret this result as normal/abnormal. HGB (test code = 718-7) 7.1 g/dL 12.2-16.4 L HCT (test code = 4544-3) 23.0 % 38.4-49.3 L MCH (test code = 785-6) 28.6 pg 26.1-32.7 MCV (test code = 787-2) 92.7 fL 81.7-95.6 MCHC (test code = 786-4) 30.9 g/dL 31.2-35.0 L PLT (test code = 777-3) 44 See_Comment LL [Automated message] The system which generated this result transmitted reference range: 150 - 328 10*3/?L. The reference range was not used to interpret this result as normal/abnormal. MPV (test code = 24863-7) Not Measured RDW-CV (test code = 788-0) 23.2 % 12.1-15.4 H RDW-SD (test code = 46484-8) 73.2 fL 38.5-51.6 H NRBC x10^3 (test code = 4059966061) 0.07 See_Comment [Automated [employer]] The system which generated this result transmitted reference range: 10*3/?L. The reference range was not used to interpret this result as normal/abnormal. NRBC/100 WBC (test code = 8695035254) 0.2 See_Comment [Automated [employer]] The system which generated this result transmitted reference range: 0.0 - 10.0 /100 WBCs. The reference range was not used to interpret this result as normal/abnormal. IPF % (test code = 5949832491) 22.4 % 1.2-10.7 H Platelet count measured by fluorescence method. Lab Interpretation (test code = 55077-9) Abnormal [facility] WITHOUT DIFF - For acute bleeding or tanrgiod8946-26-68 21:13:20* Test Item Value Reference Range Interpretation Comme nts WBC (test code = 6690-2) 31.81 See_Comment H [Automated messa ge] The system which generated this result transmitted reference range: 4.20 - 10.70 10*3/?L. The reference range was not used to interpret this result as normal/abnormal. RBC (test code = 789-8) 2.48 See_Comment L [Automated message] The system which generated this result transmitted reference range: 4.26 - 5.52 10*6/?L. The reference range was not used to interpret this result as normal/abnormal. HGB (test code = 718-7) 7.1 g/dL 12.2-16.4 L HCT (test code = 4544-3) 23.0 % 38.4-49.3 L MCH (test code = 785-6) 28.6 pg 26.1-32.7 MCV (test code = 787-2) 92.7 fL 81.7-95.6 MCHC (test code = 786-4) 30.9 g/dL 31.2-35.0 L PLT (test code = 777-3) 44 See_Comment LL [Automated message] The system which generated this result transmitted reference range: 150 - 328 10*3/?L. The reference range was not used to interpret this result as normal/abnormal. MPV (test code = 84216-0) Not Measured RDW-CV (test code = 788-0) 23.2 % 12.1-15.4 H RDW-SD (test code = 71291-8) 73.2 fL 38.5-51.6 H NRBC x10^3 (test code = 0350669100) 0.07 See_Comment [Automated [employer]] The system which generated this result transmitted reference range: 10*3/?L. The reference range was not used to interpret this result as normal/abnormal. NRBC/100 WBC (test code = 9886581156) 0.2 See_Comment [Automated [employer]] The system which generated this result transmitted reference range: 0.0 - 10.0 /100 WBCs. The reference range was not used to interpret this result as normal/abnormal. IPF % (test code = 3866749089) 22.4 % 1.2-10.7 H Platelet count measured by fluorescence method. Lab Interpretation (test code = 06874-7) Abnormal [facility] (for use with Heparin Infusion)2023-03-05 21:03:57* Test Item Value Reference Range Interpretation Comme nts APTT Patient (test code = 3173-2) 49 See_Comment H [Automated [employer]] The system which generated this result transmitted reference range: 26 - 36 Seconds. The reference range was not used to interpret this result as normal/abnormal. Lab Interpretation (test code = 00853-1) Abnormal [facility] (for use with Heparin Infusion)2023-03-05 21:03:57* Test Item Value Reference Range Interpretation Comme nts APTT Patient (test code = 3173-2) 49 See_Comment H [Automated messa ge] The system which generated this result transmitted reference range: 26 - 36 Seconds. The reference range was not used to interpret this result as normal/abnormal. Lab Interpretation (test code = 62018-5) [facility] Test Item Value Reference Range Interpretation Comme nts APTT Patient (test code = 3173-2) 47 See_Comment H [Automated messa ge] The system which generated this result transmitted reference range: 26 - 36 Seconds. The reference range was not used to interpret this result as normal/abnormal. Lab Interpretation (test code = 35546-3) [facility]:04:32* Test Item Value Reference Range Interpretation Comme nts APTT Patient (test code = 3173-2) 47 See_Comment H [Automated messa ge] The system which generated this result transmitted reference range: 26 - 36 Seconds. The reference range was not used to interpret this result as normal/abnormal. Lab Interpretation (test code = 44944-8) [facility] L[facility] [id number] 18:53:21* Test Item Value Reference Range Interpretation Comme [facility] PH (test code = 2) 7.41 7.35-7.45 PCO2 (test code = 2301594816) 34 See_Comment L [Automated messa ge] The system which generated this result transmitted reference range: 35 - 45 mmHg. The reference range was not used to interpret this result as normal/abnormal. PO2 (test code = 7693076226) 355 See_Comment H [Automated messa ge] The system which generated this result transmitted reference range: 80 - 100 mmHg. The reference range was not used to interpret this result as normal/abnormal. HCO3 (test code = 5534865485) 21 See_Comment L [Automated messa ge] The system which generated this result transmitted reference range: 22 - 26 mEq/L. The reference range was not used to interpret this result as normal/abnormal. BE (test code = 5506622203) -3.4 See_Comment L [Automated messa ge] The system which generated this result transmitted reference range: -3.0 - 3.0 mEq/L. The reference range was not used to interpret this result as normal/abnormal. THB (test code = 2834669664) 8.0 g/dL 13.5-18.0 LL %O2HB (test code = 5726466316) 98.6 % 94.0-99.0 %COHB ART (test code = 7662074107) 1.1 % 0.0-1.5 %METHB ART (test code = 2005626408) 0.3 % 0.4-1.5 L VOL%O2 ART (test code = 7126287636) 12.1 % 15.0-23.0 L NA (test code = 2171296873) 142 mmol/L 135-145 K+ (test code = 6210526228) 3.9 mmol/L 3.5-5.0 AC CA IONZ (test code = 2727907309) 4.40 mg/dL 4.50-5.30 L GLUCOSE (test code = 5484598443) 190 mg/dL 70-110 H LACTIC ACID (test code = 0762841203) 1.49 mmol/L 0.50-2.20 Lab Interpretation (test code = 71680-5) [facility] + Lactic [id number] 18:53:21* Test Item Value Reference Range Interpretation Comme nts PH (test code = 2) 7.41 7.35-7.45 PCO2 (test code = 9935889431) 34 See_Comment L [Automated messa ge] The system which generated this result transmitted reference range: 35 - 45 mmHg. The reference range was not used to interpret this result as normal/abnormal. PO2 (test code = 7562426532) 355 See_Comment H [Automated messa ge] The system which generated this result transmitted reference range: 80 - 100 mmHg. The reference range was not used to interpret this result as normal/abnormal. HCO3 (test code = 1133514597) 21 See_Comment L [Automated messa ge] The system which generated this result transmitted reference range: 22 - 26 mEq/L. The reference range was not used to interpret this result as normal/abnormal. BE (test code = 7814905365) -3.4 See_Comment L [Automated messa ge] The system which generated this result transmitted reference range: -3.0 - 3.0 mEq/L. The reference range was not used to interpret this result as normal/abnormal. THB (test code = 0665745721) 8.0 g/dL 13.5-18.0 LL %O2HB (test code = 4489082509) 98.6 % 94.0-99.0 %COHB ART (test code = 3096019022) 1.1 % 0.0-1.5 %METHB ART (test code = 4916548857) 0.3 % 0.4-1.5 L VOL%O2 ART (test code = 0424072755) 12.1 % 15.0-23.0 L NA (test code = 5250787618) 142 mmol/L 135-145 K+ (test code = 0220526485) 3.9 mmol/L 3.5-5.0 AC CA IONZ (test code = 2826289297) 4.40 mg/dL 4.50-5.30 L GLUCOSE (test code = 8567880714) 190 mg/dL 70-110 H LACTIC ACID (test code = 1832709953) 1.49 mmol/L 0.50-2.20 Lab Interpretation (test code = 15389-3) Abnormal [facility] WITH [id number] 13:39:19* Test Item Value Reference Range Interpretation Comme nts WBC (test code = 6690-2) 34.46 See_Comment H [Automated messa ge] The system which generated this result transmitted reference range: 4.20 - 10.70 10*3/?L. The reference range was not used to interpret this result as normal/abnormal. RBC (test code = 789-8) 2.77 See_Comment L [Automated messa ge] The system which generated this result transmitted reference range: 4.26 - 5.52 10*6/?L. The reference range was not used to interpret this result as normal/abnormal. HGB (test code = 718-7) 8.0 g/dL 12.2-16.4 L HCT (test code = 4544-3) 25.5 % 38.4-49.3 L MCV (test code = 787-2) 92.1 fL 81.7-95.6 MCH (test code = 785-6) 28.9 pg 26.1-32.7 MCHC (test code = 786-4) 31.4 g/dL 31.2-35.0 RDW-SD (test code = 00141-7) 70.1 fL 38.5-51.6 H RDW-CV (test code = 788-0) 22.8 % 12.1-15.4 H PLT (test code = 777-3) 41 See_Comment LL [Automated [employer] ge] The system which generated this result transmitted reference range: 150 - 328 10*3/?L. The reference range was not used to interpret this result as normal/abnormal. MPV (test code = 14526-4) Not Measured IPF % (test code = 6046976896) 26.3 % 1.2-10.7 H Platelet count measured by fluorescence method. NRBC/100 WBC (test code = 5991934270) 0.2 See_Comment [Automated [employer] [place] ssage] The system which generated this result transmitted reference range: 0.0 - 10.0 /100 WBCs. The reference range was not used to interpret this result as normal/abnormal. NRBC x10^3 (test code = 3471291568) 0.08 See_Comment [Automated [employer] ge] The system which generated this result transmitted reference range: 10*3/?L. The reference range was not used to interpret this result as normal/abnormal. GRAN MAT (NEUT) % (test code = 770-8) 89.5 % IMM GRAN % (test code = 6821120546) 1.70 % LYMPH % (test code = 736-9) 3.7 % MONO % (test code = 5905-5) 4.9 % EOS % (test code = 713-8) 0.0 % BASO % (test code = 706-2) 0.2 % GRAN MAT x10^3(ANC) (test code = 6673748103) 30.84 10*3/uL 1.99-6.95 H IMM GRAN x10^3 (test code = 5542021843) 0.60 10*3/uL 0.00-0.06 H LYMPH x10^3 (test code = 731-0) 1.27 10*3/uL 1.09-3.23 MONO x10^3 (test code = 742-7) 1.69 10*3/uL 0.36-1.02 H EOS x10^3 (test code = 711-2) 0.06-0.53 L BASO x10^3 (test code = 704-7) 0.06 10*3/uL 0.01-0.09 POLYCHROMASIA (test code = 72142-4) 2+ See_Comment [Automated messa ge] The system which generated this result transmitted reference range: 2+. The reference range was not used to interpret this result as normal/abnormal. SCHISTOCYTES (test code = 800-3) 1+ A Lab Interpretation (test code = 36218-0) Abnormal [facility] WITH [id number] 13:39:19* Test Item Value Reference Range Interpretation Comme nts WBC (test code = 6690-2) 34.46 See_Comment H [Automated messa ge] The system which generated this result transmitted reference range: 4.20 - 10.70 10*3/?L. The reference range was not used to interpret this result as normal/abnormal. RBC (test code = 789-8) 2.77 See_Comment L [Automated messa ge] The system which generated this result transmitted reference range: 4.26 - 5.52 10*6/?L. The reference range was not used to interpret this result as normal/abnormal. HGB (test code = 718-7) 8.0 g/dL 12.2-16.4 L HCT (test code = 4544-3) 25.5 % 38.4-49.3 L MCV (test code = 787-2) 92.1 fL 81.7-95.6 MCH (test code = 785-6) 28.9 pg 26.1-32.7 MCHC (test code = 786-4) 31.4 g/dL 31.2-35.0 RDW-SD (test code = 84570-5) 70.1 fL 38.5-51.6 H RDW-CV (test code = 788-0) 22.8 % 12.1-15.4 H PLT (test code = 777-3) 41 See_Comment LL [Automated messa ge] The system which generated this result transmitted reference range: 150 - 328 10*3/?L. The reference range was not used to interpret this result as normal/abnormal. MPV (test code = 62003-4) Not Measured IPF % (test code = 9623060315) 26.3 % 1.2-10.7 H Platelet count measured by fluorescence method. NRBC/100 WBC (test code = 6496581173) 0.2 See_Comment [Automated [employer] [place] ssage] The system which generated this result transmitted reference range: 0.0 - 10.0 /100 WBCs. The reference range was not used to interpret this result as normal/abnormal. NRBC x10^3 (test code = 9668219425) 0.08 See_Comment [Automated [employer] ge] The system which generated this result transmitted reference range: 10*3/?L. The reference range was not used to interpret this result as normal/abnormal. GRAN MAT (NEUT) % (test code = 770-8) 89.5 % IMM GRAN % (test code = 3817662739) 1.70 % LYMPH % (test code = 736-9) 3.7 % MONO % (test code = 5905-5) 4.9 % EOS % (test code = 713-8) 0.0 % BASO % (test code = 706-2) 0.2 % GRAN MAT x10^3(ANC) (test code = 8941911021) 30.84 10*3/uL 1.99-6.95 H IMM GRAN x10^3 (test code = 0983097730) 0.60 10*3/uL 0.00-0.06 H LYMPH x10^3 (test code = 731-0) 1.27 10*3/uL 1.09-3.23 MONO x10^3 (test code = 742-7) 1.69 10*3/uL 0.36-1.02 H EOS x10^3 (test code = 711-2) 0.06-0.53 L BASO x10^3 (test code = 704-7) 0.06 10*3/uL 0.01-0.09 POLYCHROMASIA (test code = 47891-7) 2+ See_Comment [Automated [employer] ge] The system which generated this result transmitted reference range: 2+. The reference range was not used to interpret this result as normal/abnormal. SCHISTOCYTES (test code = 800-3) 1+ A Lab Interpretation (test code = 21968-3) Abnormal [place] [id number] 13:12:16* Test Item Value Reference Range Interpretation Comme nts APTT Patient (test code = 3173-2) 48 See_Comment H [Automated messa ge] The system which generated this result transmitted reference range: 26 - 36 Seconds. The reference range was not used to interpret this result as normal/abnormal. Lab Interpretation (test code = 63045-7) Abnormal [place] [id number] 13:12:16* Test Item Value Reference Range Interpretation Comme nts APTT Patient (test code = 3173-2) 48 See_Comment H [Automated messa ge] The system which generated this result transmitted reference range: 26 - 36 Seconds. The reference range was not used to interpret this result as normal/abnormal. Lab Interpretation (test code = 32276-6) Abnormal [facility] GLUCOSE (AUTOMATED)2023-03-05 12:38:42* Test Item Value Reference Range Interpretation Comme [facility] POCT GLU (test code = 4092144049) 169 mg/dL 70-110 H Lab Interpretation (test cod e = 26098-7) Abnormal [facility] GLUCOSE (AUTOMATED)2023-03-05 12:38:42* Test Item Value Reference Range Interpretation Comme [facility] POCT GLU (test code = 5311250297) 169 mg/dL 70-110 H Lab Interpretation (test cod e = 52403-1) [facility] (in units), 1 Units 2023-03-05 09:44:43* Test Item Value Reference Range Interpretation Comme nts Cross Match Result (test code = 4409) Compatible ISBT Blood Type Code (test code = 206457) 5100 Unit Blood Type (test code = 4410) O Pos Unit Number (test code = 4411) [id number] Blood Expiration Date & Time (test code = 775940) [id number] Status Information (test code = 4412) Issued Product Identification (test code = 4413) Red Blood Cells Product Code (test code = 4414) [id number] Performed at [facility] B Laboratory Services - [facility] Blood [address] [place] [address]Fcfd Free: [phone] No. [id number] [facility] RBC (in units), 1 Units 2023-03-05 09:44:43* Test Item Value Reference Range Interpretation Comme [facility] Cross Match Result (test code = 4409) Compatible ISBT Blood Type Code (test code = 475448) 5100 Unit Blood Type (test code = 4410) O Pos Unit Number (test code = 4411) [id number] Blood Expiration Date & Time (test code = 307518) [id number] Status Information (test code = 4412) Issued Product Identification (test code = 4413) Red Blood Cells Product Code (test code = 4414) [id number] Performed at [facility] Blood [address] [place], [place] [id number] Free: [phone] No. [id number] [facility] + Lactic Ncct9934-16-33 09:00:06* Test Item Value Reference Range Interpretation Comme [facility] PH (test code = 2) 7.41 7.35-7.45 PCO2 (test code = 3367968154) 36 See_Comment [Automated messa ge] The system which generated this result transmitted reference range: 35 - 45 mmHg. The reference range was not used to interpret this result as normal/abnormal. PO2 (test code = 4473648060) 137 See_Comment H [Automated messa ge] The system which generated this result transmitted reference range: 80 - 100 mmHg. The reference range was not used to interpret this result as normal/abnormal. HCO3 (test code = 7655394276) 22 See_Comment [Automated messa ge] The system which generated this result transmitted reference range: 22 - 26 mEq/L. The reference range was not used to interpret this result as normal/abnormal. BE (test code = 3119818459) -2.0 See_Comment [Automated messa ge] The system which generated this result transmitted reference range: -3.0 - 3.0 mEq/L. The reference range was not used to interpret this result as normal/abnormal. THB (test code = 6197961666) 9.0 g/dL 13.5-18.0 L %O2HB (test code = 6303904345) 97.5 % 94.0-99.0 %COHB ART (test code = 3823188119) 1.1 % 0.0-1.5 %METHB ART (test code = 3862527717) 0.2 % 0.4-1.5 L VOL%O2 ART (test code = 2439116452) 12.6 % 15.0-23.0 L NA (test code = 0381853000) 142 mmol/L 135-145 K+ (test code = 5987862497) 3.8 mmol/L 3.5-5.0 AC CA IONZ (test code = 8153165634) 4.60 mg/dL 4.50-5.30 GLUCOSE (test code = 7854087207) 163 mg/dL 70-110 H LACTIC ACID (test code = 8434510564) 1.90 mmol/L 0.50-2.20 Lab Interpretation (test code = 67706-0) [facility] + Lactic Eufr4174-96-31 09:00:06* Test Item Value Reference Range Interpretation Comme nts PH (test code = 2) 7.41 7.35-7.45 PCO2 (test code = 0845647035) 36 See_Comment [Automated messa ge] The system which generated this result transmitted reference range: 35 - 45 mmHg. The reference range was not used to interpret this result as normal/abnormal. PO2 (test code = 5757976615) 137 See_Comment H [Automated messa ge] The system which generated this result transmitted reference range: 80 - 100 mmHg. The reference range was not used to interpret this result as normal/abnormal. HCO3 (test code = 8642546292) 22 See_Comment [Automated messa ge] The system which generated this result transmitted reference range: 22 - 26 mEq/L. The reference range was not used to interpret this result as normal/abnormal. BE (test code = 6465092218) -2.0 See_Comment [Automated messa ge] The system which generated this result transmitted reference range: -3.0 - 3.0 mEq/L. The reference range was not used to interpret this result as normal/abnormal. THB (test code = 8564203738) 9.0 g/dL 13.5-18.0 L %O2HB (test code = 3704613465) 97.5 % 94.0-99.0 %COHB ART (test code = 0777822932) 1.1 % 0.0-1.5 %METHB ART (test code = 2704059425) 0.2 % 0.4-1.5 L VOL%O2 ART (test code = 3946943616) 12.6 % 15.0-23.0 L NA (test code = 0864782743) 142 mmol/L 135-145 K+ (test code = 4726953709) 3.8 mmol/L 3.5-5.0 AC CA IONZ (test code = 6118229008) 4.60 mg/dL 4.50-5.30 GLUCOSE (test code = 9081302887) 163 mg/dL 70-110 H LACTIC ACID (test code = 6279065756) 1.90 mmol/L 0.50-2.20 Lab Interpretation (test code = 38480-5) [facility] + Lactic Bkgw5757-35-43 04:49:35* Test Item Value Reference Range Interpretation Comme nts PH (test code = 2) 7.43 7.35-7.45 PCO2 (test code = 1836776654) 29 See_Comment L [Automated messa ge] The system which generated this result transmitted reference range: 35 - 45 mmHg. The reference range was not used to interpret this result as normal/abnormal. PO2 (test code = 9882246649) 164 See_Comment H [Automated messa ge] The system which generated this result transmitted reference range: 80 - 100 mmHg. The reference range was not used to interpret this result as normal/abnormal. HCO3 (test code = 9293528342) 19 See_Comment L [Automated messa ge] The system which generated this result transmitted reference range: 22 - 26 mEq/L. The reference range was not used to interpret this result as normal/abnormal. BE (test code = 7237130402) -4.6 See_Comment L [Automated messa ge] The system which generated this result transmitted reference range: -3.0 - 3.0 mEq/L. The reference range was not used to interpret this result as normal/abnormal. THB (test code = 8142746831) 9.9 g/dL 13.5-18.0 L %O2HB (test code = 6586529132) 98.5 % 94.0-99.0 %COHB ART (test code = 9092351333) 0.7 % 0.0-1.5 %METHB ART (test code = 4899256276) 0.0 % 0.4-1.5 L VOL%O2 ART (test code = 9206263397) 14.1 % 15.0-23.0 L NA (test code = 1834845291) 141 mmol/L 135-145 K+ (test code = 1557940320) 4.0 mmol/L 3.5-5.0 AC CA IONZ (test code = 0475890598) 4.60 mg/dL 4.50-5.30 GLUCOSE (test code = 5696067654) 150 mg/dL 70-110 H LACTIC ACID (test code = 0389806533) 1.52 mmol/L 0.50-2.20 Lab Interpretation (test code = 04865-5) [facility] + Lactic Kcur0833-46-71 04:49:35* Test Item Value Reference Range Interpretation Comme nts PH (test code = 2) 7.43 7.35-7.45 PCO2 (test code = 7111886773) 29 See_Comment L [Automated messa ge] The system which generated this result transmitted reference range: 35 - 45 mmHg. The reference range was not used to interpret this result as normal/abnormal. PO2 (test code = 1686166046) 164 See_Comment H [Automated messa ge] The system which generated this result transmitted reference range: 80 - 100 mmHg. The reference range was not used to interpret this result as normal/abnormal. HCO3 (test code = 0281217053) 19 See_Comment L [Automated messa ge] The system which generated this result transmitted reference range: 22 - 26 mEq/L. The reference range was not used to interpret this result as normal/abnormal. BE (test code = 0793273113) -4.6 See_Comment L [Automated messa ge] The system which generated this result transmitted reference range: -3.0 - 3.0 mEq/L. The reference range was not used to interpret this result as normal/abnormal. THB (test code = 7640750214) 9.9 g/dL 13.5-18.0 L %O2HB (test code = 4685114403) 98.5 % 94.0-99.0 %COHB ART (test code = 2667750692) 0.7 % 0.0-1.5 %METHB ART (test code = 7843415015) 0.0 % 0.4-1.5 L VOL%O2 ART (test code = 3274711533) 14.1 % 15.0-23.0 L NA (test code = 4274035289) 141 mmol/L 135-145 K+ (test code = 6056896474) 4.0 mmol/L 3.5-5.0 AC CA IONZ (test code = 2438012832) 4.60 mg/dL 4.50-5.30 GLUCOSE (test code = 4775604384) 150 mg/dL 70-110 H LACTIC ACID (test code = 5300393051) 1.52 mmol/L 0.50-2.20 Lab Interpretation (test code = 41100-8) Abnormal [facility] GLUCOSE (AUTOMATED)2023-03-05 01:09:13* Test Item Value Reference Range Interpretation Comme nts POCT GLU (test code = 9618553303) 194 mg/dL 70-110 H Lab Interpretation (test cod e = 64562-7) Abnormal [facility] GLUCOSE (AUTOMATED)2023-03-05 01:09:13* Test Item Value Reference Range Interpretation Comme nts POCT GLU (test code = 3558358874) 194 mg/dL 70-110 H Lab Interpretation (test cod e = 33593-6) Abnormal [place] 50633023-07-04 00:09:40* Test Item Value Reference Range Interpretation Comme nts APTT Patient (test code = 3173-2) 59 See_Comment H [Automated messa ge] The system which generated this result transmitted reference range: 26 - 36 Seconds. The reference range was not used to interpret this result as normal/abnormal. Lab Interpretation (test code = 70720-9) [facility] Test Item Value Reference Range Interpretation Comme nts APTT Patient (test code = 3173-2) 59 See_Comment H [Automated messa ge] The system which generated this result transmitted reference range: 26 - 36 Seconds. The reference range was not used to interpret this result as normal/abnormal. Lab Interpretation (test code = 70826-4) [facility]* Test Item Value Reference Range Interpretation Comme nts Fibrinogen (test code = 4360068996) 289 mg/dL 167-453 Lab Interpretation (test cod e = 51180-3) Normal [facility] 22:19:45* Test Item Value Reference Range Interpretation Comme nts Fibrinogen (test code = 5009626641) 289 mg/dL 167-453 Lab Interpretation (test cod e = 25737-6) Normal [facility] GLUCOSE (AUTOMATED)2023-03-04 21:56:06* Test Item Value Reference Range Interpretation Comme nts POCT GLU (test code = 1216957347) 240 mg/dL 70-110 H Lab Interpretation (test cod e = 60344-1) Abnormal [facility] GLUCOSE (AUTOMATED)2023-03-04 21:56:06* Test Item Value Reference Range Interpretation Comme nts POCT GLU (test code = 8120153226) 240 mg/dL 70-110 H Lab Interpretation (test cod e = 22627-1) Abnormal [facility] WITHOUT DIFF - For acute bleeding or wzkjdmxz0401-70-37 18:51:06* Test Item Value Reference Range Interpretation Comme nts WBC (test code = 6690-2) 36.42 See_Comment H [Automated [employer]] The system which generated this result transmitted reference range: 4.20 - 10.70 10*3/?L. The reference range was not used to interpret this result as normal/abnormal. RBC (test code = 789-8) 2.63 See_Comment L [Automated message] The system which generated this result transmitted reference range: 4.26 - 5.52 10*6/?L. The reference range was not used to interpret this result as normal/abnormal. HGB (test code = 718-7) 7.7 g/dL 12.2-16.4 L HCT (test code = 4544-3) 25.4 % 38.4-49.3 L MCH (test code = 785-6) 29.3 pg 26.1-32.7 MCV (test code = 787-2) 96.6 fL 81.7-95.6 H MCHC (test code = 786-4) 30.3 g/dL 31.2-35.0 L PLT (test code = 777-3) 51 See_Comment L [Automated message] The system which generated this result transmitted reference range: 150 - 328 10*3/?L. The reference range was not used to interpret this result as normal/abnormal. MPV (test code = 74194-8) Not Measured RDW-CV (test code = 788-0) 19.7 % 12.1-15.4 H RDW-SD (test code = 89769-8) 64.9 fL 38.5-51.6 H NRBC x10^3 (test code = 2920910591) 0.15 See_Comment [Automated messa ge] The system which generated this result transmitted reference range: 10*3/?L. The reference range was not used to interpret this result as normal/abnormal. NRBC/100 WBC (test code = 2430063419) 0.4 See_Comment [Automated messa ge] The system which generated this result transmitted reference range: 0.0 - 10.0 /100 WBCs. The reference range was not used to interpret this result as normal/abnormal. IPF % (test code = 2599347841) 26.6 % 1.2-10.7 H Platelet count measured by fluorescence method. Lab Interpretation (test code = 21775-8) Abnormal [facility] WITHOUT DIFF - For acute bleeding or flsrdktj6011-94-13 18:51:06* Test Item Value Reference Range Interpretation Comme nts WBC (test code = 6690-2) 36.42 See_Comment H [Automated messa ge] The system which generated this result transmitted reference range: 4.20 - 10.70 10*3/?L. The reference range was not used to interpret this result as normal/abnormal. RBC (test code = 789-8) 2.63 See_Comment L [Automated message] The system which generated this result transmitted reference range: 4.26 - 5.52 10*6/?L. The reference range was not used to interpret this result as normal/abnormal. HGB (test code = 718-7) 7.7 g/dL 12.2-16.4 L HCT (test code = 4544-3) 25.4 % 38.4-49.3 L MCH (test code = 785-6) 29.3 pg 26.1-32.7 MCV (test code = 787-2) 96.6 fL 81.7-95.6 H MCHC (test code = 786-4) 30.3 g/dL 31.2-35.0 L PLT (test code = 777-3) 51 See_Comment L [Automated message] The system which generated this result transmitted reference range: 150 - 328 10*3/?L. The reference range was not used to interpret this result as normal/abnormal. MPV (test code = 09264-4) Not Measured RDW-CV (test code = 788-0) 19.7 % 12.1-15.4 H RDW-SD (test code = 31826-5) 64.9 fL 38.5-51.6 H NRBC x10^3 (test code = 8847605591) 0.15 See_Comment [Automated [employer]] The system which generated this result transmitted reference range: 10*3/?L. The reference range was not used to interpret this result as normal/abnormal. NRBC/100 WBC (test code = 2139150538) 0.4 See_Comment [Automated [employer]] The system which generated this result transmitted reference range: 0.0 - 10.0 /100 WBCs. The reference range was not used to interpret this result as normal/abnormal. IPF % (test code = 3658663790) 26.6 % 1.2-10.7 H Platelet count measured by fluorescence method. Lab Interpretation (test code = 08801-8) Abnormal [facility] QZYBZ7485-66-84 17:48:56* Test Item Value Reference Range Interpretation Comme nts K (test code = 5712407029) 4.6 mmol/L 3.5-5.0 Lab Interpretation (test cod e = 71841-7) Normal [facility] [id number] 17:48:56* Test Item Value Reference Range Interpretation Comme nts K (test code = 9862132126) 4.6 mmol/L 3.5-5.0 Lab Interpretation (test cod e = 51138-8) [id number] 17:48:56* Test Item Value Reference Range Interpretation Comme nts K (test code = 7616530138) 4.6 mmol/L 3.5-5.0 Lab Interpretation (test cod e = 74267-0) [facility] [id number] 17:48:56* Test Item Value Reference Range Interpretation Comme nts K (test code = 5923403966) 4.6 mmol/L 3.5-5.0 Lab Interpretation (test cod e = 71132-5) [facility] 17:40:16* Test Item Value Reference Range Interpretation Comme nts APTT Patient (test code = 3173-2) 64 See_Comment H [Automated messa ge] The system which generated this result transmitted reference range: 26 - 36 Seconds. The reference range was not used to interpret this result as normal/abnormal. Lab Interpretation (test code = 38527-5) [facility] 17:40:16* Test Item Value Reference Range Interpretation Comme nts APTT Patient (test code = 3173-2) 64 See_Comment H [Automated messa ge] The system which generated this result transmitted reference range: 26 - 36 Seconds. The reference range was not used to interpret this result as normal/abnormal. Lab Interpretation (test code = 02313-8) [facility] Lactic [id number] 17:06:25* Test Item Value Reference Range Interpretation Comme nts PH (test code = 2) 7.37 7.35-7.45 PCO2 (test code = 7723041341) 36 See_Comment [Automated messa ge] The system which generated this result transmitted reference range: 35 - 45 mmHg. The reference range was not used to interpret this result as normal/abnormal. PO2 (test code = 1273822172) 150 See_Comment H [Automated messa ge] The system which generated this result transmitted reference range: 80 - 100 mmHg. The reference range was not used to interpret this result as normal/abnormal. HCO3 (test code = 6801969328) 20 See_Comment L [Automated messa ge] The system which generated this result transmitted reference range: 22 - 26 mEq/L. The reference range was not used to interpret this result as normal/abnormal. BE (test code = 2506167530) -4.8 See_Comment L [Automated messa ge] The system which generated this result transmitted reference range: -3.0 - 3.0 mEq/L. The reference range was not used to interpret this result as normal/abnormal. THB (test code = 0688260612) 8.0 g/dL 13.5-18.0 LL %O2HB (test code = 7762410315) 97.8 % 94.0-99.0 %COHB ART (test code = 4117766541) 1.0 % 0.0-1.5 %METHB ART (test code = 0906460538) 0.3 % 0.4-1.5 L VOL%O2 ART (test code = 7826854821) 11.3 % 15.0-23.0 L NA (test code = 3853097589) 141 mmol/L 135-145 K+ (test code = 0645444740) 4.6 mmol/L 3.5-5.0 AC CA IONZ (test code = 5475689906) 4.30 mg/dL 4.50-5.30 L GLUCOSE (test code = 9325826712) 242 mg/dL 70-110 H LACTIC ACID (test code = 0079697837) 1.80 mmol/L 0.50-2.20 Lab Interpretation (test code = 80441-2) [facility] Lactic [id number] 17:06:25* Test Item Value Reference Range Interpretation Comme nts PH (test code = 2) 7.37 7.35-7.45 PCO2 (test code = 8457166790) 36 See_Comment [Automated messa ge] The system which generated this result transmitted reference range: 35 - 45 mmHg. The reference range was not used to interpret this result as normal/abnormal. PO2 (test code = 2618416843) 150 See_Comment H [Automated messa ge] The system which generated this result transmitted reference range: 80 - 100 mmHg. The reference range was not used to interpret this result as normal/abnormal. HCO3 (test code = 1512032838) 20 See_Comment L [Automated messa ge] The system which generated this result transmitted reference range: 22 - 26 mEq/L. The reference range was not used to interpret this result as normal/abnormal. BE (test code = 6346537058) -4.8 See_Comment L [Automated messa ge] The system which generated this result transmitted reference range: -3.0 - 3.0 mEq/L. The reference range was not used to interpret this result as normal/abnormal. THB (test code = 2726964418) 8.0 g/dL 13.5-18.0 LL %O2HB (test code = 9573006564) 97.8 % 94.0-99.0 %COHB ART (test code = 9907306498) 1.0 % 0.0-1.5 %METHB ART (test code = 1178846810) 0.3 % 0.4-1.5 L VOL%O2 ART (test code = 5494415371) 11.3 % 15.0-23.0 L NA (test code = 3238271726) 141 mmol/L 135-145 K+ (test code = 8751502469) 4.6 mmol/L 3.5-5.0 AC CA IONZ (test code = 4943569361) 4.30 mg/dL 4.50-5.30 L GLUCOSE (test code = 5862922889) 242 mg/dL 70-110 H LACTIC ACID (test code = 7137346357) 1.80 mmol/L 0.50-2.20 Lab Interpretation (test code = 90291-7) [facility] 13:46:40* Test Item Value Reference Range Interpretation Comme nts APTT Patient (test code = 3173-2) 74 See_Comment H [Automated messa ge] The system which generated this result transmitted reference range: 26 - 36 Seconds. The reference range was not used to interpret this result as normal/abnormal. Lab Interpretation (test code = 10554-5) [facility] 13:46:40* Test Item Value Reference Range Interpretation Comme nts APTT Patient (test code = 3173-2) 74 See_Comment H [Automated messa ge] The system which generated this result transmitted reference range: 26 - 36 Seconds. The reference range was not used to interpret this result as normal/abnormal. Lab Interpretation (test code = 30768-7) Abnormal [facility] Packed RBC (in units), 1 Units 2023-03-04 13:44:44* Test Item Value Reference Range Interpretation Comme nts Cross Match Result (test code = 4409) Compatible ISBT Blood Type Code (test code = 457745) 5100 Unit Blood Type (test code = 4410) O Pos Unit Number (test code = 4411) [id number] Blood Expiration Date & Time (test code = 362640) [id number] Status Information (test code = 4412) Issued Product Identification (test code = 4413) Red Blood Cells Product Code (test code = 4414) [id number] Performed at [address] Free: [phone] No. [id number] [facility] Packed RBC (in units), 1 Units 2023-03-04 13:44:44* Test Item Value Reference Range Interpretation Comme nts Cross Match Result (test code = 4409) Compatible ISBT Blood Type Code (test code = 955719) 5100 Unit Blood Type (test code = 4410) O Pos Unit Number (test code = 4411) [id number] Blood Expiration Date & Time (test code = 450460) [id number] Status Information (test code = 4412) Issued Product Identification (test code = 4413) Red Blood Cells Product Code (test code = 4414) [id number] Performed at [place] [address]Toll Free: [phone] No. [id number] [facility]2023-03-04 13:15:44* Test Item Value Reference Range Interpretation Comme nts POCT GLU (test code = 8739192840) 251 mg/dL 70-110 H Lab Interpretation (test cod e = 52856-7) Abnormal [facility]2023-03-04 13:15:44* Test Item Value Reference Range Interpretation Comme nts POCT GLU (test code = 0867314137) 251 mg/dL 70-110 H Lab Interpretation (test cod e = 10506-9) [facility]normal [facility] 11:13:48* Test Item Value Reference Range Interpretation Comme nts Procalcitonin (test code = 1703432684) 15.10 ng/mL <=0.07 H MIKAYLA (test code = MIKAYLA) INTERPRETATION OF [...] lung abscess/empyema. For further information please refer to:[email or web address] Lab Interpretation (test code = 06030-4) [facility]normal [facility] 11:13:48* Test Item Value Reference Range Interpretation Comme nts Procalcitonin (test code = 4364953487) 15.10 ng/mL <=0.07 H MIKAYLA (test code = MIKAYLA) INTERPRETATION OF [...] lung abscess/empyema. For further information please refer to:[email or web address] Lab Interpretation (test code = 06509-0) Abnormal [facility] WITH [id number] 10:57:21* Test Item Value Reference Range Interpretation Comme nts WBC (test code = 6690-2) 41.69 See_Comment H [Automated [employer]] The system which generated this result transmitted reference range: 4.20 - 10.70 10*3/?L. The reference range was not used to interpret this result as normal/abnormal. RBC (test code = 789-8) 2.31 See_Comment L [Automated [employer]] The system which generated this result transmitted reference range: 4.26 - 5.52 10*6/?L. The reference range was not used to interpret this result as normal/abnormal. HGB (test code = 718-7) 6.6 g/dL 12.2-16.4 L HCT (test code = 4544-3) 22.6 % 38.4-49.3 L MCV (test code = 787-2) 97.8 fL 81.7-95.6 H MCH (test code = 785-6) 28.6 pg 26.1-32.7 MCHC (test code = 786-4) 29.2 g/dL 31.2-35.0 L RDW-SD (test code = 46412-7) 74.5 fL 38.5-51.6 H RDW-CV (test code = 788-0) 22.3 % 12.1-15.4 H PLT (test code = 777-3) 46 See_Comment LL [Automated [employer]] The system which generated this result transmitted reference range: 150 - 328 10*3/?L. The reference range was not used to interpret this result as normal/abnormal. MPV (test code = 39225-5) Not Measured IPF % (test code = 6678329742) 25.8 % 1.2-10.7 H Platelet count measured by fluorescence method. NRBC/100 WBC (test code = 6606536842) 0.6 See_Comment [Automated [employer]] The system which generated this result transmitted reference range: 0.0 - 10.0 /100 WBCs. The reference range was not used to interpret this result as normal/abnormal. NRBC x10^3 (test code = 4043362121) 0.23 See_Comment [Automated [employer]] The system which generated this result transmitted reference range: 10*3/?L. The reference range was not used to interpret this result as normal/abnormal. GRAN MAT (NEUT) % (test code = 770-8) 88.5 % IMM GRAN % (test code = 0612143718) 3.00 % LYMPH % (test code = 736-9) 4.5 % MONO % (test code = 5905-5) 3.7 % EOS % (test code = 713-8) 0.0 % BASO % (test code = 706-2) 0.3 % GRAN MAT x10^3(ANC) (test code = 5819280944) 36.91 10*3/uL 1.99-6.95 H IMM GRAN x10^3 (test code = 2662350121) 1.26 10*3/uL 0.00-0.06 H LYMPH x10^3 (test code = 731-0) 1.87 10*3/uL 1.09-3.23 MONO x10^3 (test code = 742-7) 1.53 10*3/uL 0.36-1.02 H EOS x10^3 (test code = 711-2) 0.06-0.53 L BASO x10^3 (test code = 704-7) 0.11 10*3/uL 0.01-0.09 H POLYCHROMASIA (test code = 01729-3) 2+ See_Comment [Automated messa ge] The system which generated this result transmitted reference range: 2+. The reference range was not used to interpret this result as normal/abnormal. Lab Interpretation (test code = 80292-5) Abnormal [facility] WITH [id number] 10:57:21* Test Item Value Reference Range Interpretation Comme nts WBC (test code = 6690-2) 41.69 See_Comment H [Automated messa ge] The system which generated this result transmitted reference range: 4.20 - 10.70 10*3/?L. The reference range was not used to interpret this result as normal/abnormal. RBC (test code = 789-8) 2.31 See_Comment L [Automated messa ge] The system which generated this result transmitted reference range: 4.26 - 5.52 10*6/?L. The reference range was not used to interpret this result as normal/abnormal. HGB (test code = 718-7) 6.6 g/dL 12.2-16.4 L HCT (test code = 4544-3) 22.6 % 38.4-49.3 L MCV (test code = 787-2) 97.8 fL 81.7-95.6 H MCH (test code = 785-6) 28.6 pg 26.1-32.7 MCHC (test code = 786-4) 29.2 g/dL 31.2-35.0 L RDW-SD (test code = 19650-3) 74.5 fL 38.5-51.6 H RDW-CV (test code = 788-0) 22.3 % 12.1-15.4 H PLT (test code = 777-3) 46 See_Comment LL [Automated [employer]] The system which generated this result transmitted reference range: 150 - 328 10*3/?L. The reference range was not used to interpret this result as normal/abnormal. MPV (test code = 35461-3) Not Measured IPF % (test code = 3661723991) 25.8 % 1.2-10.7 H Platelet count measured by fluorescence method. NRBC/100 WBC (test code = 3510479145) 0.6 See_Comment [Automated [employer] ssage] The system which generated this result transmitted reference range: 0.0 - 10.0 /100 WBCs. The reference range was not used to interpret this result as normal/abnormal. NRBC x10^3 (test code = 6242919498) 0.23 See_Comment [Automated [employer]] The system which generated this result transmitted reference range: 10*3/?L. The reference range was not used to interpret this result as normal/abnormal. GRAN MAT (NEUT) % (test code = 770-8) 88.5 % IMM GRAN % (test code = 4100378105) 3.00 % LYMPH % (test code = 736-9) 4.5 % MONO % (test code = 5905-5) 3.7 % EOS % (test code = 713-8) 0.0 % BASO % (test code = 706-2) 0.3 % GRAN MAT x10^3(ANC) (test code = 6729243833) 36.91 10*3/uL 1.99-6.95 H IMM GRAN x10^3 (test code = 3225978647) 1.26 10*3/uL 0.00-0.06 H LYMPH x10^3 (test code = 731-0) 1.87 10*3/uL 1.09-3.23 MONO x10^3 (test code = 742-7) 1.53 10*3/uL 0.36-1.02 H EOS x10^3 (test code = 711-2) 0.06-0.53 L BASO x10^3 (test code = 704-7) 0.11 10*3/uL 0.01-0.09 H POLYCHROMASIA (test code = 07411-0) 2+ See_Comment [Automated messa ge] The system which generated this result transmitted reference range: 2+. The reference range was not used to interpret this result as normal/abnormal. Lab Interpretation (test code = 49157-5) [facility] (77870[facility] (ALB,T.PRO,BILI T,BU/BC,ALT,AST,ALK PHOS)2023-03-04 10:33:26* Test Item Value Reference Range Interpretation Comme nts TOTAL BILI (test code = 3352138818) 2.7 mg/dL 0.1-1.1 H BILI UNCON (test code = 1895474615) 0.7 mg/dL 0.1-1.1 BILI CONJ (test code = 9340658299) 0.9 mg/dL 0.0-0.3 H T PROTEIN (test code = 2523296235) 6.2 g/dL 6.3-8.2 L ALBUMIN (test code = 7767553360) 3.0 g/dL 3.5-5.0 L ALK PHOS (test code = 0967210405) 103 U/L 34-122 ALTv (test code = 1742-6) 57 U/L 5-50 H AST(SGOT) (test code = 7946787098) 69 U/L 13-40 H Lab Interpretation (test cod e = 03715-4) [facility]normal [facility] (41049) (ALB,T.PRO,BILI T,BU/BC,ALT,AST,ALK PHOS)2023-03-04 10:33:26* Test Item Value Reference Range Interpretation Comme nts TOTAL BILI (test code = 2019785116) 2.7 mg/dL 0.1-1.1 H BILI UNCON (test code = 4542711551) 0.7 mg/dL 0.1-1.1 BILI CONJ (test code = 2351981062) 0.9 mg/dL 0.0-0.3 H T PROTEIN (test code = 9822575479) 6.2 g/dL 6.3-8.2 L ALBUMIN (test code = 4441637982) 3.0 g/dL 3.5-5.0 L ALK PHOS (test code = 1029821291) 103 U/L 34-122 ALTv (test code = 1742-6) 57 U/L 5-50 H AST(SGOT) (test code = 9962230040) 69 U/L 13-40 H Lab Interpretation (test cod e = 28158-1) Abnormal [facility] 10:33:26* Test Item Value Reference Range Interpretation Comme nts PHOSPHORUS (test code = 7805504231) 6.8 mg/dL 2.5-5.0 H Lab Interpretation (test cod e = 50272-4) Abnormal [facility] (12382) (ALB,T.PRO,BILI T,BU/BC,ALT,AST,ALK PHOS)2023-03-04 10:33:26* Test Item Value Reference Range Interpretation Comme nts TOTAL BILI (test code = 8573899573) 2.7 mg/dL 0.1-1.1 H BILI UNCON (test code = 7187984486) 0.7 mg/dL 0.1-1.1 BILI CONJ (test code = 9519140701) 0.9 mg/dL 0.0-0.3 H T PROTEIN (test code = 2704049577) 6.2 g/dL 6.3-8.2 L ALBUMIN (test code = 8807154805) 3.0 g/dL 3.5-5.0 L ALK PHOS (test code = 0686373321) 103 U/L 34-122 ALTv (test code = 1742-6) 57 U/L 5-50 H AST(SGOT) (test code = 9525709938) 69 U/L 13-40 H Lab Interpretation (test cod e = 74181-0) [facility]normal [facility] (NA, K, CL, CO2, GLUCOSE, BUN, CREATININE, CA)2023-03-04 10:33:26* Test Item Value Reference Range Interpretation Comme nts NA (test code = 8075053113) 141 mmol/L 135-145 K (test code = 5539684718) 5.1 mmol/L 3.5-5.0 H CL (test code = 7917265619) 107 mmol/L 98-108 CO2 TOTAL (test code = 9176681393) 16 mmol/L 23-31 L AGAP (test code = 3947671659) 18 2-16 H BUN (test code = 0881398804) 38 mg/dL 7-23 H GLUCOSE (test code = 4294200138) 221 mg/dL 70-110 H CREATININE (test code = 7282939471) 3.14 mg/dL 0.60-1.25 H CALCIUM (test code = 1727424543) 7.8 mg/dL 8.6-10.6 L eGFR (test code = 6226963303) 20.3 mL/min/1.73m2 MIKAYLA (test code = MIKAYLA) Association of [...] or abnormalities in imaging tests). Lab Interpretation (test code = 55708-8) [facility] 10:33:26* Test Item Value Reference Range Interpretation Comme nts MAGNESIUM (test code = 8035899500) 2.2 mg/dL 1.7-2.4 Lab Interpretation (test cod e = 42212-1) Normal [facility] 10:33:26* Test Item Value Reference Range Interpretation Comme nts PHOSPHORUS (test code = 7682402147) 6.8 mg/dL 2.5-5.0 H Lab Interpretation (test cod e = 92544-1) [facility]normal [facility] (75281) (ALB,T.PRO,BILI T,BU/BC,ALT,AST,ALK PHOS)2023-03-04 10:33:26* Test Item Value Reference Range Interpretation Comme nts TOTAL BILI (test code = 0335420976) 2.7 mg/dL 0.1-1.1 H BILI UNCON (test code = 7752771143) 0.7 mg/dL 0.1-1.1 BILI CONJ (test code = 4272172407) 0.9 mg/dL 0.0-0.3 H T PROTEIN (test code = 1044576657) 6.2 g/dL 6.3-8.2 L ALBUMIN (test code = 4871468400) 3.0 g/dL 3.5-5.0 L ALK PHOS (test code = 9234697346) 103 U/L 34-122 ALTv (test code = 1742-6) 57 U/L 5-50 H AST(SGOT) (test code = 5608166210) 69 U/L 13-40 H Lab Interpretation (test cod e = 87870-7) [facility]normal [facility] (NA, K, CL, CO2, GLUCOSE, BUN, CREATININE, CA)2023-03-04 10:33:26* Test Item Value Reference Range Interpretation Comme nts NA (test code = 6111078105) 141 mmol/L 135-145 K (test code = 7189035247) 5.1 mmol/L 3.5-5.0 H CL (test code = 8595746087) 107 mmol/L 98-108 CO2 TOTAL (test code = 8647624463) 16 mmol/L 23-31 L AGAP (test code = 4283648575) 18 2-16 H BUN (test code = 6426019297) 38 mg/dL 7-23 H GLUCOSE (test code = 9459638081) 221 mg/dL 70-110 H CREATININE (test code = 3251452608) 3.14 mg/dL 0.60-1.25 H CALCIUM (test code = 4585734291) 7.8 mg/dL 8.6-10.6 L eGFR (test code = 3254143407) 20.3 mL/min/1.73m2 MIKAYLA (test code = MIKAYLA) Association of [...] or abnormalities in imaging tests). Lab Interpretation (test code = 90348-6) [facility]normal [facility] 10:33:26* Test Item Value Reference Range Interpretation Commelmo nts MAGNESIUM (test code = 4817640193) 2.2 mg/dL 1.7-2.4 Lab Interpretation (test cod e = 05873-8) Normal [place] 50633023-07-03 10:14:43* Test Item Value Reference Range Interpretation Comme nts APTT Patient (test code = 3173-2) 88 See_Comment H [Automated messa ge] The system which generated this result transmitted reference range: 26 - 36 Seconds. The reference range was not used to interpret this result as normal/abnormal. Lab Interpretation (test code = 54702-6) Abnormal [place] 50633023-07-03 10:14:43* Test Item Value Reference Range Interpretation Comme [facility] APTT Patient (test code = 3173-2) 88 See_Comment H [Automated messa ge] The system which generated this result transmitted reference range: 26 - 36 Seconds. The reference range was not used to interpret this result as normal/abnormal. Lab Interpretation (test code = 01241-9) [facility] + Lactic [id number] 09:56:45* Test Item Value Reference Range Interpretation Comme [facility] PH (test code = 2) 7.34 7.35-7.45 L PCO2 (test code = 0824293583) 33 See_Comment L [Automated messa ge] The system which generated this result transmitted reference range: 35 - 45 mmHg. The reference range was not used to interpret this result as normal/abnormal. PO2 (test code = 6638122931) 164 See_Comment H [Automated messa ge] The system which generated this result transmitted reference range: 80 - 100 mmHg. The reference range was not used to interpret this result as normal/abnormal. HCO3 (test code = 6254494266) 18 See_Comment L [Automated messa ge] The system which generated this result transmitted reference range: 22 - 26 mEq/L. The reference range was not used to interpret this result as normal/abnormal. BE (test code = 0393256570) -7.4 See_Comment L [Automated messa ge] The system which generated this result transmitted reference range: -3.0 - 3.0 mEq/L. The reference range was not used to interpret this result as normal/abnormal. THB (test code = 9538616158) 8.0 g/dL 13.5-18.0 LL %O2HB (test code = 6755555939) 97.9 % 94.0-99.0 %COHB ART (test code = 8388666606) 1.4 % 0.0-1.5 %METHB ART (test code = 8938431233) 0.2 % 0.4-1.5 L VOL%O2 ART (test code = 1738745590) 11.4 % 15.0-23.0 L NA (test code = 7839508502) 140 mmol/L 135-145 K+ (test code = 3062508597) 5.0 mmol/L 3.5-5.0 AC CA IONZ (test code = 4199433622) 4.40 mg/dL 4.50-5.30 L GLUCOSE (test code = 4749386008) 227 mg/dL 70-110 H LACTIC ACID (test code = 1650934534) 2.31 mmol/L 0.50-2.20 H Lab Interpretation (test code = 07155-4) [facility] + Lactic Myjk9279-35-22 09:56:45* Test Item Value Reference Range Interpretation Comme nts PH (test code = 2) 7.34 7.35-7.45 L PCO2 (test code = 8704089547) 33 See_Comment L [Automated messa ge] The system which generated this result transmitted reference range: 35 - 45 mmHg. The reference range was not used to interpret this result as normal/abnormal. PO2 (test code = 6469529366) 164 See_Comment H [Automated messa ge] The system which generated this result transmitted reference range: 80 - 100 mmHg. The reference range was not used to interpret this result as normal/abnormal. HCO3 (test code = 6913574892) 18 See_Comment L [Automated messa ge] The system which generated this result transmitted reference range: 22 - 26 mEq/L. The reference range was not used to interpret this result as normal/abnormal. BE (test code = 0201319958) -7.4 See_Comment L [Automated messa ge] The system which generated this result transmitted reference range: -3.0 - 3.0 mEq/L. The reference range was not used to interpret this result as normal/abnormal. THB (test code = 5127356234) 8.0 g/dL 13.5-18.0 LL %O2HB (test code = 8053677684) 97.9 % 94.0-99.0 %COHB ART (test code = 5075718985) 1.4 % 0.0-1.5 %METHB ART (test code = 8724742233) 0.2 % 0.4-1.5 L VOL%O2 ART (test code = 8897900475) 11.4 % 15.0-23.0 L NA (test code = 7680009764) 140 mmol/L 135-145 K+ (test code = 2948012409) 5.0 mmol/L 3.5-5.0 AC CA IONZ (test code = 3487915608) 4.40 mg/dL 4.50-5.30 L GLUCOSE (test code = 9453571027) 227 mg/dL 70-110 H LACTIC ACID (test code = 2357530561) 2.31 mmol/L 0.50-2.20 H Lab Interpretation (test code = 84056-0) [facility] 06:55:09* Test Item Value Reference Range Interpretation Comme nts APTT Patient (test code = 3173-2) 86 See_Comment H [Automated messa ge] The system which generated this result transmitted reference range: 26 - 36 Seconds. The reference range was not used to interpret this result as normal/abnormal. Lab Interpretation (test code = 02621-0) [facility] 06:55:09* Test Item Value Reference Range Interpretation Comme nts APTT Patient (test code = 3173-2) 86 See_Comment H [Automated messa ge] The system which generated this result transmitted reference range: 26 - 36 Seconds. The reference range was not used to interpret this result as normal/abnormal. Lab Interpretation (test code = 57833-9) [facility] + Lactic Zasv1186-59-63 04:32:59* Test Item Value Reference Range Interpretation Comme nts PH (test code = 2) 7.39 7.35-7.45 PCO2 (test code = 2842114004) 34 See_Comment L [Automated messa ge] The system which generated this result transmitted reference range: 35 - 45 mmHg. The reference range was not used to interpret this result as normal/abnormal. PO2 (test code = 5621189256) 178 See_Comment H [Automated messa ge] The system which generated this result transmitted reference range: 80 - 100 mmHg. The reference range was not used to interpret this result as normal/abnormal. HCO3 (test code = 7273046740) 20 See_Comment L [Automated messa ge] The system which generated this result transmitted reference range: 22 - 26 mEq/L. The reference range was not used to interpret this result as normal/abnormal. BE (test code = 1446152774) -4.4 See_Comment L [Automated messa ge] The system which generated this result transmitted reference range: -3.0 - 3.0 mEq/L. The reference range was not used to interpret this result as normal/abnormal. THB (test code = 0286371313) 7.7 g/dL 13.5-18.0 LL %O2HB (test code = 8125439741) 98.2 % 94.0-99.0 %COHB ART (test code = 9528163143) 1.1 % 0.0-1.5 %METHB ART (test code = 6378992017) 0.3 % 0.4-1.5 L VOL%O2 ART (test code = 7278008502) 11.1 % 15.0-23.0 L NA (test code = 0604639248) 140 mmol/L 135-145 K+ (test code = 3624710398) 4.9 mmol/L 3.5-5.0 AC CA IONZ (test code = 9719018067) 4.40 mg/dL 4.50-5.30 L GLUCOSE (test code = 0375613925) 176 mg/dL 70-110 H LACTIC ACID (test code = 2363346181) 2.50 mmol/L 0.50-2.20 H Lab Interpretation (test code = 09670-0) [facility] [id number] 04:32:59* Test Item Value Reference Range Interpretation Comme nts PH (test code = 2) 7.39 7.35-7.45 PCO2 (test code = 0915761603) 34 See_Comment L [Automated messa ge] The system which generated this result transmitted reference range: 35 - 45 mmHg. The reference range was not used to interpret this result as normal/abnormal. PO2 (test code = 4815266328) 178 See_Comment H [Automated messa ge] The system which generated this result transmitted reference range: 80 - 100 mmHg. The reference range was not used to interpret this result as normal/abnormal. HCO3 (test code = 7140523899) 20 See_Comment L [Automated messa ge] The system which generated this result transmitted reference range: 22 - 26 mEq/L. The reference range was not used to interpret this result as normal/abnormal. BE (test code = 8330046662) -4.4 See_Comment L [Automated messa ge] The system which generated this result transmitted reference range: -3.0 - 3.0 mEq/L. The reference range was not used to interpret this result as normal/abnormal. THB (test code = 7139081489) 7.7 g/dL 13.5-18.0 LL %O2HB (test code = 3020681386) 98.2 % 94.0-99.0 %COHB ART (test code = 3901169340) 1.1 % 0.0-1.5 %METHB ART (test code = 3337839332) 0.3 % 0.4-1.5 L VOL%O2 ART (test code = 8717991420) 11.1 % 15.0-23.0 L NA (test code = 4824986826) 140 mmol/L 135-145 K+ (test code = 5355829379) 4.9 mmol/L 3.5-5.0 AC CA IONZ (test code = 3012427492) 4.40 mg/dL 4.50-5.30 L GLUCOSE (test code = 4882136758) 176 mg/dL 70-110 H LACTIC ACID (test code = 7316297805) 2.50 mmol/L 0.50-2.20 H Lab Interpretation (test code = 95915-5) [facility]* Test Item Value Reference Range Interpretation Comme nts APTT Patient (test code = 3173-2) 102 See_Comment HH [Automated messa ge] The system which generated this result transmitted reference range: 26 - 36 Seconds. The reference range was not used to interpret this result as normal/abnormal. Lab Interpretation (test code = 43548-8) [facility]:21:57* Test Item Value Reference Range Interpretation Comme nts APTT Patient (test code = 3173-2) 102 See_Comment HH [Automated messa ge] The system which generated this result transmitted reference range: 26 - 36 Seconds. The reference range was not used to interpret this result as normal/abnormal. Lab Interpretation (test code = 63108-6) [facility] Lactic [id number] 01:53:13* Test Item Value Reference Range Interpretation Comme [facility] PH (test code = 2) 7.42 7.35-7.45 PCO2 (test code = 9180049634) 35 See_Comment [Automated messa ge] The system which generated this result transmitted reference range: 35 - 45 mmHg. The reference range was not used to interpret this result as normal/abnormal. PO2 (test code = 0143258038) 98 See_Comment [Automated messa ge] The system which generated this result transmitted reference range: 80 - 100 mmHg. The reference range was not used to interpret this result as normal/abnormal. HCO3 (test code = 4501726837) 21 See_Comment L [Automated messa ge] The system which generated this result transmitted reference range: 22 - 26 mEq/L. The reference range was not used to interpret this result as normal/abnormal. BE (test code = 5543989230) -2.3 See_Comment [Automated messa ge] The system which generated this result transmitted reference range: -3.0 - 3.0 mEq/L. The reference range was not used to interpret this result as normal/abnormal. THB (test code = 1068224769) 7.6 g/dL 13.5-18.0 LL %O2HB (test code = 9957003657) 95.6 % 94.0-99.0 %COHB ART (test code = 4351632271) 1.3 % 0.0-1.5 %METHB ART (test code = 7173469167) 0.3 % 0.4-1.5 L VOL%O2 ART (test code = 9951869698) 10.4 % 15.0-23.0 L NA (test code = 4586256448) 141 mmol/L 135-145 K+ (test code = 7803522648) 4.7 mmol/L 3.5-5.0 AC CA IONZ (test code = 6243486987) 4.30 mg/dL 4.50-5.30 L GLUCOSE (test code = 8237726216) 145 mg/dL 70-110 H LACTIC ACID (test code = 1656206235) 2.84 mmol/L 0.50-2.20 H Lab Interpretation (test code = 28869-6) [facility] + Lactic [id number] 01:53:13* Test Item Value Reference Range Interpretation Comme nts PH (test code = 2) 7.42 7.35-7.45 PCO2 (test code = 5512174587) 35 See_Comment [Automated messa ge] The system which generated this result transmitted reference range: 35 - 45 mmHg. The reference range was not used to interpret this result as normal/abnormal. PO2 (test code = 0593230054) 98 See_Comment [Automated messa ge] The system which generated this result transmitted reference range: 80 - 100 mmHg. The reference range was not used to interpret this result as normal/abnormal. HCO3 (test code = 6801675857) 21 See_Comment L [Automated messa ge] The system which generated this result transmitted reference range: 22 - 26 mEq/L. The reference range was not used to interpret this result as normal/abnormal. BE (test code = 1661913984) -2.3 See_Comment [Automated messa ge] The system which generated this result transmitted reference range: -3.0 - 3.0 mEq/L. The reference range was not used to interpret this result as normal/abnormal. THB (test code = 4160539174) 7.6 g/dL 13.5-18.0 LL %O2HB (test code = 6833948865) 95.6 % 94.0-99.0 %COHB ART (test code = 5699235498) 1.3 % 0.0-1.5 %METHB ART (test code = 8828994394) 0.3 % 0.4-1.5 L VOL%O2 ART (test code = 4230785566) 10.4 % 15.0-23.0 L NA (test code = 3194741090) 141 mmol/L 135-145 K+ (test code = 5931730524) 4.7 mmol/L 3.5-5.0 AC CA IONZ (test code = 9248626245) 4.30 mg/dL 4.50-5.30 L GLUCOSE (test code = 4393692090) 145 mg/dL 70-110 H LACTIC ACID (test code = 8758714696) 2.84 mmol/L 0.50-2.20 H Lab Interpretation (test code = 56654-2) [facility] + Lactic [id number] 01:04:03* Test Item Value Reference Range Interpretation Comme nts PH (test code = 2) 7.36 7.35-7.45 PCO2 (test code = 1337143770) 34 See_Comment L [Automated messa ge] The system which generated this result transmitted reference range: 35 - 45 mmHg. The reference range was not used to interpret this result as normal/abnormal. PO2 (test code = 4249004569) 227 See_Comment H [Automated messa ge] The system which generated this result transmitted reference range: 80 - 100 mmHg. The reference range was not used to interpret this result as normal/abnormal. HCO3 (test code = 2344950780) 18 See_Comment L [Automated messa ge] The system which generated this result transmitted reference range: 22 - 26 mEq/L. The reference range was not used to interpret this result as normal/abnormal. BE (test code = 5699411540) -5.9 See_Comment L [Automated messa ge] The system which generated this result transmitted reference range: -3.0 - 3.0 mEq/L. The reference range was not used to interpret this result as normal/abnormal. THB (test code = 2831575766) 7.8 g/dL 13.5-18.0 LL %O2HB (test code = 7288938844) 98.5 % 94.0-99.0 %COHB ART (test code = 4971275465) 1.0 % 0.0-1.5 %METHB ART (test code = 6912832955) 0.4 % 0.4-1.5 VOL%O2 ART (test code = 4149577582) 11.4 % 15.0-23.0 L NA (test code = 3245996920) 138 mmol/L 135-145 K+ (test code = 1677656292) 4.6 mmol/L 3.5-5.0 AC CA IONZ (test code = 8730071911) 4.50 mg/dL 4.50-5.30 GLUCOSE (test code = 4605279113) 123 mg/dL 70-110 H LACTIC ACID (test code = 9641837660) 3.40 mmol/L 0.50-2.20 H Lab Interpretation (test code = 79612-5) [facility] Lactic [id number] 01:04:03* Test Item Value Reference Range Interpretation Comme nts PH (test code = 2) 7.36 7.35-7.45 PCO2 (test code = 0619075342) 34 See_Comment L [Automated messa ge] The system which generated this result transmitted reference range: 35 - 45 mmHg. The reference range was not used to interpret this result as normal/abnormal. PO2 (test code = 3313305737) 227 See_Comment H [Automated messa ge] The system which generated this result transmitted reference range: 80 - 100 mmHg. The reference range was not used to interpret this result as normal/abnormal. HCO3 (test code = 1277313305) 18 See_Comment L [Automated messa ge] The system which generated this result transmitted reference range: 22 - 26 mEq/L. The reference range was not used to interpret this result as normal/abnormal. BE (test code = 1935484868) -5.9 See_Comment L [Automated messa ge] The system which generated this result transmitted reference range: -3.0 - 3.0 mEq/L. The reference range was not used to interpret this result as normal/abnormal. THB (test code = 8166103018) 7.8 g/dL 13.5-18.0 LL %O2HB (test code = 2483777624) 98.5 % 94.0-99.0 %COHB ART (test code = 7957737470) 1.0 % 0.0-1.5 %METHB ART (test code = 7437185349) 0.4 % 0.4-1.5 VOL%O2 ART (test code = 4540282087) 11.4 % 15.0-23.0 L NA (test code = 3957634487) 138 mmol/L 135-145 K+ (test code = 1774227193) 4.6 mmol/L 3.5-5.0 AC CA IONZ (test code = 5934347297) 4.50 mg/dL 4.50-5.30 GLUCOSE (test code = 1206612242) 123 mg/dL 70-110 H LACTIC ACID (test code = 4940601423) 3.40 mmol/L 0.50-2.20 H Lab Interpretation (test code = 89117-7) [facility] + Lactic [id number] 22:48:52* Test Item Value Reference Range Interpretation Comme nts PH (test code = 2) 7.32 7.35-7.45 L PCO2 (test code = 3038394757) 31 See_Comment L [Automated messa ge] The system which generated this result transmitted reference range: 35 - 45 mmHg. The reference range was not used to interpret this result as normal/abnormal. PO2 (test code = 8927122272) 231 See_Comment H [Automated messa ge] The system which generated this result transmitted reference range: 80 - 100 mmHg. The reference range was not used to interpret this result as normal/abnormal. HCO3 (test code = 2134523885) 15 See_Comment L [Automated messa ge] The system which generated this result transmitted reference range: 22 - 26 mEq/L. The reference range was not used to interpret this result as normal/abnormal. BE (test code = 0329268606) -9.3 See_Comment L [Automated messa ge] The system which generated this result transmitted reference range: -3.0 - 3.0 mEq/L. The reference range was not used to interpret this result as normal/abnormal. THB (test code = 5481890124) 8.2 g/dL 13.5-18.0 LL %O2HB (test code = 2519098874) 98.4 % 94.0-99.0 %COHB ART (test code = 2155232480) 1.1 % 0.0-1.5 %METHB ART (test code = 2906906936) 0.4 % 0.4-1.5 VOL%O2 ART (test code = 6862193268) 11.9 % 15.0-23.0 L NA (test code = 9450966111) 138 mmol/L 135-145 K+ (test code = 6388015396) 4.8 mmol/L 3.5-5.0 AC CA IONZ (test code = 3925630728) 4.20 mg/dL 4.50-5.30 L GLUCOSE (test code = 3995872329) 96 mg/dL 70-110 LACTIC ACID (test code = 1935163954) 6.44 mmol/L 0.50-2.20 H Lab Interpretation (test code = 66869-2) [facility] Lactic [id number] 22:48:52* Test Item Value Reference Range Interpretation Comme nts PH (test code = 2) 7.32 7.35-7.45 L PCO2 (test code = 4431600251) 31 See_Comment L [Automated messa ge] The system which generated this result transmitted reference range: 35 - 45 mmHg. The reference range was not used to interpret this result as normal/abnormal. PO2 (test code = 2939805050) 231 See_Comment H [Automated messa ge] The system which generated this result transmitted reference range: 80 - 100 mmHg. The reference range was not used to interpret this result as normal/abnormal. HCO3 (test code = 8015246227) 15 See_Comment L [Automated messa ge] The system which generated this result transmitted reference range: 22 - 26 mEq/L. The reference range was not used to interpret this result as normal/abnormal. BE (test code = 7944031328) -9.3 See_Comment L [Automated messa ge] The system which generated this result transmitted reference range: -3.0 - 3.0 mEq/L. The reference range was not used to interpret this result as normal/abnormal. THB (test code = 3685198417) 8.2 g/dL 13.5-18.0 LL %O2HB (test code = 1311587157) 98.4 % 94.0-99.0 %COHB ART (test code = 3312427192) 1.1 % 0.0-1.5 %METHB ART (test code = 7615363858) 0.4 % 0.4-1.5 VOL%O2 ART (test code = 9530568782) 11.9 % 15.0-23.0 L NA (test code = 2598093477) 138 mmol/L 135-145 K+ (test code = 3836619193) 4.8 mmol/L 3.5-5.0 AC CA IONZ (test code = 2070789109) 4.20 mg/dL 4.50-5.30 L GLUCOSE (test code = 6940072821) 96 mg/dL 70-110 LACTIC ACID (test code = 3102158390) 6.44 mmol/L 0.50-2.20 H Lab Interpretation (test code = 91000-7) [facility] + Lactic [id number] 21:38:33* Test Item Value Reference Range Interpretation Comme nts PH (test code = 2) 7.35 7.35-7.45 PCO2 (test code = 9462481882) 27 See_Comment L [Automated messa ge] The system which generated this result transmitted reference range: 35 - 45 mmHg. The reference range was not used to interpret this result as normal/abnormal. PO2 (test code = 8991087129) 352 See_Comment H [Automated messa ge] The system which generated this result transmitted reference range: 80 - 100 mmHg. The reference range was not used to interpret this result as normal/abnormal. HCO3 (test code = 6677407713) 14 See_Comment L [Automated messa ge] The system which generated this result transmitted reference range: 22 - 26 mEq/L. The reference range was not used to interpret this result as normal/abnormal. BE (test code = 9055513099) -10.1 See_Comment L [Automated messa ge] The system which generated this result transmitted reference range: -3.0 - 3.0 mEq/L. The reference range was not used to interpret this result as normal/abnormal. THB (test code = 4854841176) 8.2 g/dL 13.5-18.0 LL %O2HB (test code = 5407178898) 98.1 % 94.0-99.0 %COHB ART (test code = 3361485197) 1.1 % 0.0-1.5 %METHB ART (test code = 8055718675) 0.5 % 0.4-1.5 VOL%O2 ART (test code = 3011438996) 12.3 % 15.0-23.0 L NA (test code = 0771917701) 138 mmol/L 135-145 K+ (test code = 7838566178) 4.8 mmol/L 3.5-5.0 AC CA IONZ (test code = 8432015789) 4.30 mg/dL 4.50-5.30 L GLUCOSE (test code = 7473298344) 103 mg/dL 70-110 LACTIC ACID (test code = 9334026071) 8.77 mmol/L 0.50-2.20 H Lab Interpretation (test code = 85596-4) [facility] Lactic [id number] 21:38:33* Test Item Value Reference Range Interpretation Comme nts PH (test code = 2) 7.35 7.35-7.45 PCO2 (test code = 4138168579) 27 See_Comment L [Automated messa ge] The system which generated this result transmitted reference range: 35 - 45 mmHg. The reference range was not used to interpret this result as normal/abnormal. PO2 (test code = 2985081284) 352 See_Comment H [Automated messa ge] The system which generated this result transmitted reference range: 80 - 100 mmHg. The reference range was not used to interpret this result as normal/abnormal. HCO3 (test code = 6410770276) 14 See_Comment L [Automated messa ge] The system which generated this result transmitted reference range: 22 - 26 mEq/L. The reference range was not used to interpret this result as normal/abnormal. BE (test code = 0005023944) -10.1 See_Comment L [Automated messa ge] The system which generated this result transmitted reference range: -3.0 - 3.0 mEq/L. The reference range was not used to interpret this result as normal/abnormal. THB (test code = 3756346871) 8.2 g/dL 13.5-18.0 LL %O2HB (test code = 9725561695) 98.1 % 94.0-99.0 %COHB ART (test code = 8308371525) 1.1 % 0.0-1.5 %METHB ART (test code = 3846890441) 0.5 % 0.4-1.5 VOL%O2 ART (test code = 8802784273) 12.3 % 15.0-23.0 L NA (test code = 6468238498) 138 mmol/L 135-145 K+ (test code = 6976219414) 4.8 mmol/L 3.5-5.0 AC CA IONZ (test code = 0982203462) 4.30 mg/dL 4.50-5.30 L GLUCOSE (test code = 4785526396) 103 mg/dL 70-110 LACTIC ACID (test code = 0666701714) 8.77 mmol/L 0.50-2.20 H Lab Interpretation (test code = 63221-5) Abnormal [place] 50633023-07-02 21:09:04* Test Item Value Reference Range Interpretation Comme [facility] APTT Patient (test code = 3173-2) 84 See_Comment H [Automated messa ge] The system which generated this result transmitted reference range: 26 - 36 Seconds. The reference range was not used to interpret this result as normal/abnormal. Lab Interpretation (test code = 24902-5) Abnormal [place] [id number] 21:09:04* Test Item Value Reference Range Interpretation Comme [facility] APTT Patient (test code = 3173-2) 84 See_Comment H [Automated messa ge] The system which generated this result transmitted reference range: 26 - 36 Seconds. The reference range was not used to interpret this result as normal/abnormal. Lab Interpretation (test code = 45934-7) Abnormal [facility] GLUCOSE (AUTOMATED)2023-03-03 20:42:12* Test Item Value Reference Range Interpretation Comme [facility] POCT GLU (test code = 4519396148) 117 mg/dL 70-110 H Lab Interpretation (test cod e = 76946-9) Abnormal [facility] GLUCOSE (AUTOMATED)2023-03-03 20:42:12* Test Item Value Reference Range Interpretation Comme nts POCT GLU (test code = 4573163041) 117 mg/dL 70-110 H Lab Interpretation (test cod e = 16759-5) Abnormal [facility] (for use with Heparin Infusion)2023-03-03 16:44:54* Test Item Value Reference Range Interpretation Comme nts APTT Patient (test code = 3173-2) 87 See_Comment H [Automated messa ge] The system which generated this result transmitted reference range: 26 - 36 Seconds. The reference range was not used to interpret this result as normal/abnormal. Lab Interpretation (test code = 86422-2) Abnormal [facility] (for use with Heparin Infusion)2023-03-03 16:44:54* Test Item Value Reference Range Interpretation Comme nts APTT Patient (test code = 3173-2) 87 See_Comment H [Automated messa ge] The system which generated this result transmitted reference range: 26 - 36 Seconds. The reference range was not used to interpret this result as normal/abnormal. Lab Interpretation (test code = 39201-6) Abnormal [facility] GLUCOSE (AUTOMATED)2023-03-03 13:47:06* Test Item Value Reference Range Interpretation Comme nts POCT GLU (test code = 8552709580) 123 mg/dL 70-110 H Lab Interpretation (test cod e = 05334-6) Abnormal [facility] GLUCOSE (AUTOMATED)2023-03-03 13:47:06* Test Item Value Reference Range Interpretation Comme nts POCT GLU (test code = 7480861684) 123 mg/dL 70-110 H Lab Interpretation (test cod e = 21178-3) Abnormal [facility] GLUCOSE (AUTOMATED)2023-03-03 08:32:42* Test Item Value Reference Range Interpretation Comme nts POCT GLU (test code = 9252876424) 122 mg/dL 70-110 H Lab Interpretation (test cod e = 30271-5) Abnormal [facility] GLUCOSE (AUTOMATED)2023-03-03 08:32:42* Test Item Value Reference Range Interpretation Comme nts POCT GLU (test code = 6471822475) 122 mg/dL 70-110 H Lab Interpretation (test cod e = 45254-8) Abnormal [facility] GLUCOSE (AUTOMATED)2023-03-03 05:04:39* Test Item Value Reference Range Interpretation Comme nts POCT GLU (test code = 6355403714) 131 mg/dL 70-110 H Lab Interpretation (test cod e = 96962-0) Abnormal [facility] GLUCOSE (AUTOMATED)2023-03-03 05:04:39* Test Item Value Reference Range Interpretation Comme nts POCT GLU (test code = 5138776106) 131 mg/dL 70-110 H Lab Interpretation (test cod e = 39019-9) Abnormal [facility] GLUCOSE (AUTOMATED)2023-03-03 02:35:55* Test Item Value Reference Range Interpretation Comme nts POCT GLU (test code = 9693104263) 133 mg/dL 70-110 H Lab Interpretation (test cod e = 00278-3) Abnormal [facility] GLUCOSE (AUTOMATED)2023-03-03 02:35:55* Test Item Value Reference Range Interpretation Comme nts POCT GLU (test code = 2239594650) 133 mg/dL 70-110 H Lab Interpretation (test cod e = 06003-0) Abnormal [place] 50633023-07-01 22:58:56* Test Item Value Reference Range Interpretation Comme nts APTT Patient (test code = 3173-2) 91 See_Comment H [Automated messa ge] The system which generated this result transmitted reference range: 26 - 36 Seconds. The reference range was not used to interpret this result as normal/abnormal. Lab Interpretation (test code = 72369-8) Abnormal [place] 50633023-07-01 22:58:56* Test Item Value Reference Range Interpretation Comme nts APTT Patient (test code = 3173-2) 91 See_Comment H [Automated messa ge] The system which generated this result transmitted reference range: 26 - 36 Seconds. The reference range was not used to interpret this result as normal/abnormal. Lab Interpretation (test code = 35999-4) Abnormal [facility] GLUCOSE (AUTOMATED)2023-03-02 21:09:11* Test Item Value Reference Range Interpretation Comme nts POCT GLU (test code = 7450346705) 133 mg/dL 70-110 H Lab Interpretation (test cod e = 04599-6) [facility] 21:09:11* Test Item Value Reference Range Interpretation Comme nts POCT GLU (test code = 9059562332) 133 mg/dL 70-110 H Lab Interpretation (test cod e = 99710-8) [facility] [id number] 18:14:36* Test Item Value Reference Range Interpretation Comme nts WBC (test code = 6690-2) 25.80 See_Comment H [Automated messa ge] The system which generated this result transmitted reference range: 4.20 - 10.70 10*3/?L. The reference range was not used to interpret this result as normal/abnormal. RBC (test code = 789-8) 2.32 See_Comment L [Automated message] The system which generated this result transmitted reference range: 4.26 - 5.52 10*6/?L. The reference range was not used to interpret this result as normal/abnormal. HGB (test code = 718-7) 6.8 g/dL 12.2-16.4 L HCT (test code = 4544-3) 22.3 % 38.4-49.3 L MCH (test code = 785-6) 29.3 pg 26.1-32.7 MCV (test code = 787-2) 96.1 fL 81.7-95.6 H MCHC (test code = 786-4) 30.5 g/dL 31.2-35.0 L PLT (test code = 777-3) 25 See_Comment LL [Automated message] The system which generated this result transmitted reference range: 150 - 328 10*3/?L. The reference range was not used to interpret this result as normal/abnormal. MPV (test code = 55499-6) Not Measured RDW-CV (test code = 788-0) 21.4 % 12.1-15.4 H RDW-SD (test code = 54906-1) 68.2 fL 38.5-51.6 H NRBC x10^3 (test code = 7859381961) 0.13 See_Comment [Automated messa ge] The system which generated this result transmitted reference range: 10*3/?L. The reference range was not used to interpret this result as normal/abnormal. NRBC/100 WBC (test code = 0605325209) 0.5 See_Comment [Automated [employer]] The system which generated this result transmitted reference range: 0.0 - 10.0 /100 WBCs. The reference range was not used to interpret this result as normal/abnormal. IPF % (test code = 9669211520) 32.2 % 1.2-10.7 H Platelet count measured by fluorescence method. Lab Interpretation (test code = 42010-4) Abnormal [facility] WITHOUT [id number] 18:14:36* Test Item Value Reference Range Interpretation Comme nts WBC (test code = 6690-2) 25.80 See_Comment H [Automated [employer]] The system which generated this result transmitted reference range: 4.20 - 10.70 10*3/?L. The reference range was not used to interpret this result as normal/abnormal. RBC (test code = 789-8) 2.32 See_Comment L [Automated message] The system which generated this result transmitted reference range: 4.26 - 5.52 10*6/?L. The reference range was not used to interpret this result as normal/abnormal. HGB (test code = 718-7) 6.8 g/dL 12.2-16.4 L HCT (test code = 4544-3) 22.3 % 38.4-49.3 L MCH (test code = 785-6) 29.3 pg 26.1-32.7 MCV (test code = 787-2) 96.1 fL 81.7-95.6 H MCHC (test code = 786-4) 30.5 g/dL 31.2-35.0 L PLT (test code = 777-3) 25 See_Comment LL [Automated message] The system which generated this result transmitted reference range: 150 - 328 10*3/?L. The reference range was not used to interpret this result as normal/abnormal. MPV (test code = 08325-3) Not Measured RDW-CV (test code = 788-0) 21.4 % 12.1-15.4 H RDW-SD (test code = 63186-1) 68.2 fL 38.5-51.6 H NRBC x10^3 (test code = 8878887240) 0.13 See_Comment [Automated messa ge] The system which generated this result transmitted reference range: 10*3/?L. The reference range was not used to interpret this result as normal/abnormal. NRBC/100 WBC (test code = 7913296134) 0.5 See_Comment [Automated messa ge] The system which generated this result transmitted reference range: 0.0 - 10.0 /100 WBCs. The reference range was not used to interpret this result as normal/abnormal. IPF % (test code = 2818097856) 32.2 % 1.2-10.7 H Platelet count measured by fluorescence method. Lab Interpretation (test code = 02284-4) Abnormal [facility] GLUCOSE (AUTOMATED)2023-03-02 17:21:04* Test Item Value Reference Range Interpretation Comme [facility] POCT GLU (test code = 0119443790) 135 mg/dL 70-110 H Lab Interpretation (test cod e = 73478-0) Abnormal [facility] GLUCOSE (AUTOMATED)2023-03-02 17:21:04* Test Item Value Reference Range Interpretation Comme [facility] POCT GLU (test code = 0463260823) 135 mg/dL 70-110 H Lab Interpretation (test cod e = 38877-6) [facility] / [id number] 13:59:24* Test Item Value Reference Range Interpretation Comme nts PROTIME PATIENT (test code = 5964-2) 19.7 See_Comment H [Automated messa Flowbox] The system which generated this result transmitted reference range: 10.1 - 12.6 Seconds. The reference range was not used to interpret this result as normal/abnormal. INR (test code = 6301-6) 1.7 Normal INR <1.1; Warfarin Therapeutic range 2.0 to 3.0 or 2.5 to 3.5, depending upon the indications. Lab Interpretation (test code = 20255-8) [facility] 13:59:24* Test Item Value Reference Range Interpretation Comme [facility] Fibrinogen (test code = 2357603119) 255 mg/dL 167-453 Lab Interpretation (test cod e = 42224-1) Normal [facility] / [id number] 13:59:24* Test Item Value Reference Range Interpretation Comme [facility] PROTIME PATIENT (test code = 5964-2) 19.7 See_Comment H [Automated messa ge] The system which generated this result transmitted reference range: 10.1 - 12.6 Seconds. The reference range was not used to interpret this result as normal/abnormal. INR (test code = 6301-6) 1.7 Normal INR <1.1; Warfarin Therapeutic range 2.0 to 3.0 or 2.5 to 3.5, depending upon the indications. Lab Interpretation (test code = 89705-3) [facility]normal [facility] 13:59:24* Test Item Value Reference Range Interpretation Comme [facility] Fibrinogen (test code = 2698123990) 255 mg/dL 167-453 Lab Interpretation (test cod e = 47056-4) Normal [facility] [id number] 13:42:53* Test Item Value Reference Range Interpretation Comme [facility] HIT-Ab (test code = 55302-9) Positive Negative A MIKAYLA (test code = MIKAYLA) Although a positiv e result obtained using this assay may indicate the presence of heparin-associated antibodies, a positive result DOES NOT CONFIRM the diagnosis of HIT. Some patiens may have naturally occurring antibodies to PF4. The positive or negative result should be used with other information, including the clinical context, in forming a diagnosis such as the ?4T score and the 2013 [employer] [place] [employer] guidelines. Lab Interpretation (test code = 74519-0) Abnormal [facility] [id number] 13:42:53* Test Item Value Reference Range Interpretation Comme [facility] HIT-Ab (test code = 51021-6) Positive Negative A MIKAYLA (test code = MIKAYLA) Although a positiv e result obtained using this assay may indicate the presence of heparin-associated antibodies, a positive result DOES NOT CONFIRM the diagnosis of HIT. Some patiens may have naturally occurring antibodies to PF4. The positive or negative result should be used with other information, including the clinical context, in forming a diagnosis such as the ?4T score and the 2013 [employer] guidelines. Lab Interpretation (test code = 27940-2) Abnormal [facility] [id number] 13:42:53* Test Item Value Reference Range Interpretation Comme [facility] HIT-Ab (test code = 17719-5) Positive Negative A MIKAYLA (test code = MIKAYLA) Although a positiv e result obtained using this assay may indicate the presence of heparin-associated antibodies, a positive result DOES NOT CONFIRM the diagnosis of HIT. Some patiens may have naturally occurring antibodies to PF4. The positive or negative result should be used with other information, including the clinical context, in forming a diagnosis such as the ?4T score and the 2013 [employer] guidelines. Lab Interpretation (test code = 32213-5) Abnormal [facility] [id number] 13:42:53* Test Item Value Reference Range Interpretation Comme [facility] HIT-Ab (test code = 48259-8) Positive Negative A MIKAYLA (test code = MIKAYLA) Although a positiv e result obtained using this assay may indicate the presence of heparin-associated antibodies, a positive result DOES NOT CONFIRM the diagnosis of HIT. Some patiens may have naturally occurring antibodies to PF4. The positive or negative result should be used with other information, including the clinical context, in forming a diagnosis such as the ?4T score and the 2013 [employer] guidelines. Lab Interpretation (test code = 13467-4) Abnormal [place] [id number] 12:53:38* Test Item Value Reference Range Interpretation Comme nts PHOSPHORUS (test code = 4620191944) 2.7 mg/dL 2.5-5.0 Lab Interpretation (test cod e = 23311-6) Normal [place] 65013023-07-01 12:53:38* Test Item Value Reference Range Interpretation Comme nts PHOSPHORUS (test code = 9546695343) 2.7 mg/dL 2.5-5.0 Lab Interpretation (test cod e = 48280-3) Normal [facility] GLUCOSE (AUTOMATED)2023-03-02 12:46:08* Test Item Value Reference Range Interpretation Comme [facility] POCT GLU (test code = 1481368933) 119 mg/dL 70-110 H Lab Interpretation (test cod e = 95586-5) Abnormal [facility] GLUCOSE (AUTOMATED)2023-03-02 12:46:08* Test Item Value Reference Range Interpretation Comme nts POCT GLU (test code = 4559453194) 119 mg/dL 70-110 H Lab Interpretation (test cod e = 14839-3) [facility]normal [facility] - ONCE [place]pe9140-02-45 12:40:00* Test Item Value Reference Range Interpretation Comme nts ABO & RH (test code = 20) O POSITIVE IAT (test code = 1185) Negative [facility] Rcpjjql5665-19-77 12:40:00* Test Item Value Reference Range Interpretation Comme nts ABO & RH (test code = 20) O POSITIVE IAT (test code = 1185) Negative [facility] GLUCOSE (AUTOMATED)2023-03-02 09:16:05* Test Item Value Reference Range Interpretation Comme nts POCT GLU (test code = 6691433637) 126 mg/dL 70-110 H Lab Interpretation (test cod e = 79242-8) Abnormal [facility] GLUCOSE (AUTOMATED)2023-03-02 09:16:05* Test Item Value Reference Range Interpretation Comme nts POCT GLU (test code = 8043682522) 126 mg/dL 70-110 H Lab Interpretation (test cod e = 14456-4) [facility] 04:58:47* Test Item Value Reference Range Interpretation Comme nts POCT GLU (test code = 4673263271) 131 mg/dL 70-110 H Lab Interpretation (test cod e = 40052-4) [facility]23-[facility]-02 04:58:47* Test Item Value Reference Range Interpretation Comme nts POCT GLU (test code = 7576930836) 131 mg/dL 70-110 H Lab Interpretation (test cod e = 23461-6) [facility] 01:03:24* Test Item Value Reference Range Interpretation Comme nts POCT GLU (test code = 3728989246) 205 mg/dL 70-110 H Lab Interpretation (test cod e = 16515-8) Abnormal [facility] GLUCOSE (AUTOMATED)2023-03-02 01:03:24* Test Item Value Reference Range Interpretation Comme [facility] POCT GLU (test code = 0335356233) 205 mg/dL 70-110 H Lab Interpretation (test cod e = 14847-8) Abnormal [facility] METABOLIC PANEL (NA, K, CL, CO2, GLUCOSE, BUN, CREATININE, CA)2023-03-01 23:08:05* Test Item Value Reference Range Interpretation Comme [facility] NA (test code = 5211736138) 134 mmol/L 135-145 L K (test code = 2589148470) 4.1 mmol/L 3.5-5.0 CL (test code = 8279868809) 106 mmol/L 98-108 CO2 TOTAL (test code = 1100661455) 20 mmol/L 23-31 L AGAP (test code = 4527624138) 8 2-16 BUN (test code = 2251184328) 28 mg/dL 7-23 H GLUCOSE (test code = 4782461707) 232 mg/dL 70-110 H CREATININE (test code = 9841464877) 2.15 mg/dL 0.60-1.25 H CALCIUM (test code = 8686527783) 6.9 mg/dL 8.6-10.6 L eGFR (test code = 1119540007) 31.4 mL/min/1.73m2 MIKAYLA (test code = MIKAYLA) Association of [...] or abnormalities in imaging tests). Lab Interpretation (test code = 33242-0) Abnormal [facility] METABOLIC PANEL (NA, K, CL, CO2, GLUCOSE, BUN, CREATININE, CA)2023-03-01 23:08:05* Test Item Value Reference Range Interpretation Comme nts NA (test code = 8695806576) 134 mmol/L 135-145 L K (test code = 5281188559) 4.1 mmol/L 3.5-5.0 CL (test code = 5760765528) 106 mmol/L 98-108 CO2 TOTAL (test code = 8559838761) 20 mmol/L 23-31 L AGAP (test code = 3760279936) 8 2-16 BUN (test code = 1952750132) 28 mg/dL 7-23 H GLUCOSE (test code = 3716011974) 232 mg/dL 70-110 H CREATININE (test code = 8577107997) 2.15 mg/dL 0.60-1.25 H CALCIUM (test code = 2894555658) 6.9 mg/dL 8.6-10.6 L eGFR (test code = 0822275147) 31.4 mL/min/1.73m2 MIKAYLA (test code = MIKAYLA) Association of [...] or abnormalities in imaging tests). Lab Interpretation (test code = 35863-1) Abnormal [facility] (for use with Heparin Infusion)2023-03-01 23:05:48* Test Item Value Reference Range Interpretation Comme [facility] APTT Patient (test code = 3173-2) 56 See_Comment H [Automated messa Flowbox] The system which generated this result transmitted reference range: 26 - 36 Seconds. The reference range was not used to interpret this result as normal/abnormal. Lab Interpretation (test code = 27668-5) Abnormal [facility] (for use with Heparin Infusion)2023-03-01 23:05:48* Test Item Value Reference Range Interpretation Comme [facility] APTT Patient (test code = 3173-2) 56 See_Comment H [Automated [employer] Flowbox] The system which generated this result transmitted reference range: 26 - 36 Seconds. The reference range was not used to interpret this result as normal/abnormal. Lab Interpretation (test code = 86072-6) Abnormal [facility] GLUCOSE (AUTOMATED)2023-03-01 22:44:15* Test Item Value Reference Range Interpretation Comme [facility] POCT GLU (test code = 2924347660) 251 mg/dL 70-110 H Lab Interpretation (test cod e = 09982-4) Abnormal [facility] GLUCOSE (AUTOMATED)2023-03-01 22:44:15* Test Item Value Reference Range Interpretation Comme [facility] POCT GLU (test code = 8883825099) 251 mg/dL 70-110 H Lab Interpretation (test cod e = 46850-5) Abnormal [facility]2023-03-01 21:11:01* Test Item Value Reference Range Interpretation Comme nts Height (test code = 8122317681) 74 in Weight (test code = 6117780780) 263 lbs Systolic BP (test code = 9218929126) 100 mmHg Diastolic BP (test code = 4423035139) 52 mmHg Heart Rate (test code = 9787701981) 71 bpm LVOT stroke volume (test code = 7849302010) 88.30 cm3 EF(Teich) (test code = 7101382742) 63.80 % LVIDD (test code = 8687146114) 4.90 cm LVIDS (test code = 7458559917) 3.20 cm Left Ventricular End Systolic Volume by Teichholz Method (test code = 5785950) 40.4 mL Left Ventricular End Diastolic Volume by Teichholz Method (test code = 2444602) 111.6 mL IVS (test code = 5090897958) 1.03 cm LVPWD (test code = 3286522111) 0.92 cm LVOT diameter (test code = 2289193930) 2.04 cm LVOT area (test code = 9633591696) 3.30 cm2 FS (test code = 9995609706) 35 % MV Peak E Artemio (test code = 6125664118) 166.2 cm/s MV Peak A Artemio (test code = 7335510060) 118.5 cm/s E/A ratio (test code = 5345552354) 1.40 ratio E wave decelartion time (test code = 0823179291) 0.45 s LVOT peak artemio (test code = 6441821194) 157.2 cm/s LVOT mn grad (test code = 2947273232) 5.5 mmHg BSA (test code = 0415405364) 2.44 m2 LA size (test code = 2490673529) 4.4 cm Aortic valve mean velocity (test code = 2171052557) 287.2 cm/s Ao peak artemio (test code = 6868407650) 449.6 cm/s Ao VTI (test code = 1226555631) 72.0 cm AV LVOT peak gradient (test code = 8197711318) 9.9 mmHg LVOT peak VTI (test code = 7810174044) 26.9 cm AV area by cont VTI (test code = 6068425173) 1.2 cm2 AV area peak artemio (test code = 4709479738) 1.2 cm2 LV V1 mean (test code = 7224248372) 110.70 cm/s Ao max PG (test code = 9832430069) 80.90 mm[Hg] MV mean gradient (test code = 9800819736) 4.5 mmHg MV peak gradient (test code = 6837001634) 13.2 mmHg MV pk artemio (test code = 8416173183) 181.6 cm/s MV valve area p 1/2 method (test code = 1046962102) 1.66 cm2 MV valve area by continuity eq (test code = 6751221383) 1.47 cm2 MV VTI (test code = 7740309833) 60.2 cm MV dec slope (test code = 2968497862) 384.40 cm/s2 MV P1/2t max artemio (test code = 3855079399) 173.70 cm/s MV V2 mean (test code = 7831543445) 97.20 cm/s Ao root diam (test code = 9072538865) 2.90 cm AV peak gradient (test code = 2558109169) 80.9 mmHg AV valve area (test code = 9117071468) 1.23 cm2 AV mean gradient (test code = 6943206767) 39.6 mmHg Aortic root (test code = 8052134234) 2.9 cm Ao root annulus (test code = 1866718386) 2.9 cm PW (test code = 8208943802) 0.92 cm 0.6-1.1 EF - 2D (test code = 98306985) 63.80 % Interventricular Septum Diastolic Thickness by 2D (test code = 1901961) 1.03 cm Radiology Study observation (narrative) (test code = 66345-5) MIKAYLA (test code = MIKAYLA) ?Left?Ventricle: Left [...] versus less likely bioprosthetic valve stenosis. Recommend RONI for further evaluation if clinically indicated. ?Tricuspid?Valve: [...] versus less likely bioprosthetic valve stenosis. Recommend RONI for further evaluation if clinically indicated.Pulmonic ValveNot well visualized. Pulmonic valve is normal in structure and function.Ascending AortaNormal sized aortic root.PericardiumThe pericardium is normal. No pericardial effusion.Study DetailsA limited echocardiogram was performed using 2D, color flow Doppler and spectral Doppler. 5 mL of Lumason ultrasound enhancing agent used. [facility] Uwtxk8345-96-71 17:15:01* Test Item Value Reference Range Interpretation Comme nts PHOSPHORUS (test code = 2424879996) 2.7 mg/dL 2.5-5.0 Lab Interpretation (test cod e = 66242-7) [facility] (NA, K, CL, CO2, GLUCOSE, BUN, CREATININE, CA)2023-03-01 17:15:01* Test Item Value Reference Range Interpretation Comme nts NA (test code = 1169154260) 135 mmol/L 135-145 K (test code = 5224219492) 4.1 mmol/L 3.5-5.0 CL (test code = 0852257434) 105 mmol/L 98-108 CO2 TOTAL (test code = 2431341131) 20 mmol/L 23-31 L AGAP (test code = 9510562194) 10 2-16 BUN (test code = 9806532386) 27 mg/dL 7-23 H GLUCOSE (test code = 1644893146) 190 mg/dL 70-110 H CREATININE (test code = 5685863525) 2.08 mg/dL 0.60-1.25 H CALCIUM (test code = 3494699133) 6.9 mg/dL 8.6-10.6 L eGFR (test code = 8521456449) 32.6 mL/min/1.73m2 MIKAYLA (test code = MIKAYLA) Association of [...] or abnormalities in imaging tests). Lab Interpretation (test code = 13806-1) Abnormal [facility] [id number] 17:15:01* Test Item Value Reference Range Interpretation Comme nts PHOSPHORUS (test code = 3638515655) 2.7 mg/dL 2.5-5.0 Lab Interpretation (test cod e = 98318-1) Normal [facility] (NA, K, CL, CO2, GLUCOSE, BUN, CREATININE, CA)2023-03-01 17:15:01* Test Item Value Reference Range Interpretation Comme nts NA (test code = 6597129549) 135 mmol/L 135-145 K (test code = 2784647213) 4.1 mmol/L 3.5-5.0 CL (test code = 0760380653) 105 mmol/L 98-108 CO2 TOTAL (test code = 7503508704) 20 mmol/L 23-31 L AGAP (test code = 2982512258) 10 2-16 BUN (test code = 6689632607) 27 mg/dL 7-23 H GLUCOSE (test code = 5671297455) 190 mg/dL 70-110 H CREATININE (test code = 9342884957) 2.08 mg/dL 0.60-1.25 H CALCIUM (test code = 2546313859) 6.9 mg/dL 8.6-10.6 L eGFR (test code = 4760894394) 32.6 mL/min/1.73m2 MIKAYLA (test code = MIKAYLA) Association of [...] or abnormalities in imaging tests). Lab Interpretation (test code = 50540-1) Abnormal [facility] GLUCOSE (AUTOMATED)2023-03-01 16:42:01* Test Item Value Reference Range Interpretation Comme nts POCT GLU (test code = 9043048953) 201 mg/dL 70-110 H Lab Interpretation (test cod e = 21049-3) Abnormal [facility] GLUCOSE (AUTOMATED)2023-03-01 16:42:01* Test Item Value Reference Range Interpretation Comme nts POCT GLU (test code = 8962169496) 201 mg/dL 70-110 H Lab Interpretation (test cod e = 65731-2) Abnormal [facility] GLUCOSE (AUTOMATED)2023-03-01 13:14:25* Test Item Value Reference Range Interpretation Comme nts POCT GLU (test code = 4789799085) 173 mg/dL 70-110 H Lab Interpretation (test cod e = 76248-1) Abnormal [facility] GLUCOSE (AUTOMATED)2023-03-01 13:14:25* Test Item Value Reference Range Interpretation Comme nts POCT GLU (test code = 7948295180) 173 mg/dL 70-110 H Lab Interpretation (test cod e = 39256-3) Abnormal [facility] GLUCOSE (AUTOMATED)2023-03-01 09:04:56* Test Item Value Reference Range Interpretation Comme nts POCT GLU (test code = 6356430140) 203 mg/dL 70-110 H Lab Interpretation (test cod e = 69666-3) Abnormal [facility] GLUCOSE (AUTOMATED)2023-03-01 09:04:56* Test Item Value Reference Range Interpretation Comme nts POCT GLU (test code = 6273360433) 203 mg/dL 70-110 H Lab Interpretation (test cod e = 90138-6) [facility]normal [facility] 20 + Lactic [id number] 09:02:09* Test Item Value Reference Range Interpretation Comme nts PH (test code = 2) 7.48 7.35-7.45 H PCO2 (test code = 1472435132) 27 See_Comment L [Automated messa ge] The system which generated this result transmitted reference range: 35 - 45 mmHg. The reference range was not used to interpret this result as normal/abnormal. PO2 (test code = 6471200832) 130 See_Comment H [Automated messa ge] The system which generated this result transmitted reference range: 80 - 100 mmHg. The reference range was not used to interpret this result as normal/abnormal. HCO3 (test code = 4669813953) 20 See_Comment L [Automated messa ge] The system which generated this result transmitted reference range: 22 - 26 mEq/L. The reference range was not used to interpret this result as normal/abnormal. BE (test code = 8105379617) -2.8 See_Comment [Automated messa ge] The system which generated this result transmitted reference range: -3.0 - 3.0 mEq/L. The reference range was not used to interpret this result as normal/abnormal. THB (test code = 6201846116) 9.0 g/dL 13.5-18.0 L %O2HB (test code = 8517461136) 97.2 % 94.0-99.0 %COHB ART (test code = 6492323404) 1.6 % 0.0-1.5 H %METHB ART (test code = 5664840026) 0.3 % 0.4-1.5 L VOL%O2 ART (test code = 1176249748) 12.6 % 15.0-23.0 L NA (test code = 0740970973) 133 mmol/L 135-145 L K+ (test code = 9964295775) 4.3 mmol/L 3.5-5.0 AC CA IONZ (test code = 8046676294) 4.10 mg/dL 4.50-5.30 L GLUCOSE (test code = 3844553969) 198 mg/dL 70-110 H LACTIC ACID (test code = 8243656365) 1.61 mmol/L 0.50-2.20 Lab Interpretation (test code = 36073-0) [facility] + Lactic [id number] 09:02:09* Test Item Value Reference Range Interpretation Comme nts PH (test code = 2) 7.48 7.35-7.45 H PCO2 (test code = 7064663693) 27 See_Comment L [Automated messa ge] The system which generated this result transmitted reference range: 35 - 45 mmHg. The reference range was not used to interpret this result as normal/abnormal. PO2 (test code = 2527462892) 130 See_Comment H [Automated messa ge] The system which generated this result transmitted reference range: 80 - 100 mmHg. The reference range was not used to interpret this result as normal/abnormal. HCO3 (test code = 1003606894) 20 See_Comment L [Automated messa ge] The system which generated this result transmitted reference range: 22 - 26 mEq/L. The reference range was not used to interpret this result as normal/abnormal. BE (test code = 4114094838) -2.8 See_Comment [Automated messa ge] The system which generated this result transmitted reference range: -3.0 - 3.0 mEq/L. The reference range was not used to interpret this result as normal/abnormal. THB (test code = 2390250988) 9.0 g/dL 13.5-18.0 L %O2HB (test code = 2673337568) 97.2 % 94.0-99.0 %COHB ART (test code = 7574904921) 1.6 % 0.0-1.5 H %METHB ART (test code = 8588977486) 0.3 % 0.4-1.5 L VOL%O2 ART (test code = 4157501937) 12.6 % 15.0-23.0 L NA (test code = 4745400325) 133 mmol/L 135-145 L K+ (test code = 1356974136) 4.3 mmol/L 3.5-5.0 AC CA IONZ (test code = 1739378142) 4.10 mg/dL 4.50-5.30 L GLUCOSE (test code = 6183858472) 198 mg/dL 70-110 H LACTIC ACID (test code = 7934753260) 1.61 mmol/L 0.50-2.20 Lab Interpretation (test code = 44104-7) Abnormal [facility] GLUCOSE (AUTOMATED)2023-03-01 05:14:29* Test Item Value Reference Range Interpretation Comme nts POCT GLU (test code = 0649897616) 223 mg/dL 70-110 H Lab Interpretation (test cod e = 56535-7) Abnormal [facility] GLUCOSE (AUTOMATED)2023-03-01 05:14:29* Test Item Value Reference Range Interpretation Comme nts POCT GLU (test code = 6285959326) 223 mg/dL 70-110 H Lab Interpretation (test cod e = 46923-9) Abnormal [facility] GLUCOSE (AUTOMATED)2023-03-01 01:36:56* Test Item Value Reference Range Interpretation Comme nts POCT GLU (test code = 2823379105) 212 mg/dL 70-110 H Lab Interpretation (test cod e = 34621-8) Abnormal [facility] GLUCOSE (AUTOMATED)2023-03-01 01:36:56* Test Item Value Reference Range Interpretation Comme nts POCT GLU (test code = 3769883033) 212 mg/dL 70-110 H Lab Interpretation (test cod e = 64969-0) [facility] + Lactic Duex5622-32-54 21:18:12* Test Item Value Reference Range Interpretation Comme nts PH (test code = 2) 7.42 7.35-7.45 PCO2 (test code = 2667799285) 30 See_Comment L [Automated messa ge] The system which generated this result transmitted reference range: 35 - 45 mmHg. The reference range was not used to interpret this result as normal/abnormal. PO2 (test code = 4233685209) 104 See_Comment H [Automated messa ge] The system which generated this result transmitted reference range: 80 - 100 mmHg. The reference range was not used to interpret this result as normal/abnormal. HCO3 (test code = 5547889225) 19 See_Comment L [Automated messa ge] The system which generated this result transmitted reference range: 22 - 26 mEq/L. The reference range was not used to interpret this result as normal/abnormal. BE (test code = 4356036478) -4.4 See_Comment L [Automated messa ge] The system which generated this result transmitted reference range: -3.0 - 3.0 mEq/L. The reference range was not used to interpret this result as normal/abnormal. THB (test code = 7950476409) 8.5 g/dL 13.5-18.0 L %O2HB (test code = 0287486137) 96.7 % 94.0-99.0 %COHB ART (test code = 8426592009) 1.3 % 0.0-1.5 %METHB ART (test code = 8058872272) 0.1 % 0.4-1.5 L VOL%O2 ART (test code = 1593073250) 11.8 % 15.0-23.0 L NA (test code = 7835350990) 132 mmol/L 135-145 L K+ (test code = 7339281412) 4.4 mmol/L 3.5-5.0 AC CA IONZ (test code = 4111933450) 4.20 mg/dL 4.50-5.30 L GLUCOSE (test code = 3516690560) 219 mg/dL 70-110 H LACTIC ACID (test code = 2392351197) 1.74 mmol/L 0.50-2.20 Lab Interpretation (test code = 10306-3) [facility] [id number] 21:18:12* Test Item Value Reference Range Interpretation Comme nts PH (test code = 2) 7.42 7.35-7.45 PCO2 (test code = 4137205085) 30 See_Comment L [Automated messa ge] The system which generated this result transmitted reference range: 35 - 45 mmHg. The reference range was not used to interpret this result as normal/abnormal. PO2 (test code = 1534624110) 104 See_Comment H [Automated messa ge] The system which generated this result transmitted reference range: 80 - 100 mmHg. The reference range was not used to interpret this result as normal/abnormal. HCO3 (test code = 2694568209) 19 See_Comment L [Automated messa ge] The system which generated this result transmitted reference range: 22 - 26 mEq/L. The reference range was not used to interpret this result as normal/abnormal. BE (test code = 8575408963) -4.4 See_Comment L [Automated messa ge] The system which generated this result transmitted reference range: -3.0 - 3.0 mEq/L. The reference range was not used to interpret this result as normal/abnormal. THB (test code = 8632219873) 8.5 g/dL 13.5-18.0 L %O2HB (test code = 2559919813) 96.7 % 94.0-99.0 %COHB ART (test code = 8469307907) 1.3 % 0.0-1.5 %METHB ART (test code = 2925569907) 0.1 % 0.4-1.5 L VOL%O2 ART (test code = 7232995201) 11.8 % 15.0-23.0 L NA (test code = 4765037913) 132 mmol/L 135-145 L K+ (test code = 7720585351) 4.4 mmol/L 3.5-5.0 AC CA IONZ (test code = 8172814191) 4.20 mg/dL 4.50-5.30 L GLUCOSE (test code = 2251668799) 219 mg/dL 70-110 H LACTIC ACID (test code = 7231054638) 1.74 mmol/L 0.50-2.20 Lab Interpretation (test code = 31814-1) Abnormal [facility] GLUCOSE (AUTOMATED)2023-02-28 20:47:00* Test Item Value Reference Range Interpretation Comme nts POCT GLU (test code = 7647027925) 227 mg/dL 70-110 H Lab Interpretation (test cod e = 60416-4) Abnormal [facility] GLUCOSE (AUTOMATED)2023-02-28 20:47:00* Test Item Value Reference Range Interpretation Comme nts POCT GLU (test code = 6618308105) 227 mg/dL 70-110 H Lab Interpretation (test cod e = 23565-1) Abnormal [facility] GLUCOSE (AUTOMATED)2023-02-28 16:33:04* Test Item Value Reference Range Interpretation Comme nts POCT GLU (test code = 1528132830) 203 mg/dL 70-110 H Lab Interpretation (test cod e = 84649-7) Abnormal [facility] GLUCOSE (AUTOMATED)2023-02-28 16:33:04* Test Item Value Reference Range Interpretation Comme nts POCT GLU (test code = 8942352316) 203 mg/dL 70-110 H Lab Interpretation (test cod e = 21127-3) [facility] Lactic [id number] 15:01:52* Test Item Value Reference Range Interpretation Comme nts PH (test code = 2) 7.44 7.35-7.45 PCO2 (test code = 0365420630) 27 See_Comment L [Automated messa ge] The system which generated this result transmitted reference range: 35 - 45 mmHg. The reference range was not used to interpret this result as normal/abnormal. PO2 (test code = 8094046579) 57 See_Comment L [Automated messa ge] The system which generated this result transmitted reference range: 80 - 100 mmHg. The reference range was not used to interpret this result as normal/abnormal. HCO3 (test code = 5105102266) 18 See_Comment L [Automated messa ge] The system which generated this result transmitted reference range: 22 - 26 mEq/L. The reference range was not used to interpret this result as normal/abnormal. BE (test code = 0900596443) -5.5 See_Comment L [Automated messa ge] The system which generated this result transmitted reference range: -3.0 - 3.0 mEq/L. The reference range was not used to interpret this result as normal/abnormal. THB (test code = 3547588867) 9.5 g/dL 13.5-18.0 L %O2HB (test code = 8844617067) 89.5 % 94.0-99.0 L %COHB ART (test code = 7049640550) 1.5 % 0.0-1.5 %METHB ART (test code = 3454413135) 0.3 % 0.4-1.5 L VOL%O2 ART (test code = 6879148662) 12.0 % 15.0-23.0 L NA (test code = 5658548664) 132 mmol/L 135-145 L K+ (test code = 7073839273) 4.2 mmol/L 3.5-5.0 AC CA IONZ (test code = 9721423813) 4.10 mg/dL 4.50-5.30 L GLUCOSE (test code = 2100595302) 194 mg/dL 70-110 H LACTIC ACID (test code = 2747368123) 3.08 mmol/L 0.50-2.20 H Lab Interpretation (test code = 00886-8) [facility] Lactic Kigk1204-57-91 15:01:52* Test Item Value Reference Range Interpretation Comme nts PH (test code = 2) 7.44 7.35-7.45 PCO2 (test code = 0421332048) 27 See_Comment L [Automated messa ge] The system which generated this result transmitted reference range: 35 - 45 mmHg. The reference range was not used to interpret this result as normal/abnormal. PO2 (test code = 7784428094) 57 See_Comment L [Automated messa ge] The system which generated this result transmitted reference range: 80 - 100 mmHg. The reference range was not used to interpret this result as normal/abnormal. HCO3 (test code = 4777889236) 18 See_Comment L [Automated messa ge] The system which generated this result transmitted reference range: 22 - 26 mEq/L. The reference range was not used to interpret this result as normal/abnormal. BE (test code = 2667449420) -5.5 See_Comment L [Automated messa ge] The system which generated this result transmitted reference range: -3.0 - 3.0 mEq/L. The reference range was not used to interpret this result as normal/abnormal. THB (test code = 2760128955) 9.5 g/dL 13.5-18.0 L %O2HB (test code = 2875682173) 89.5 % 94.0-99.0 L %COHB ART (test code = 6130176355) 1.5 % 0.0-1.5 %METHB ART (test code = 3660000910) 0.3 % 0.4-1.5 L VOL%O2 ART (test code = 6382320772) 12.0 % 15.0-23.0 L NA (test code = 5080673828) 132 mmol/L 135-145 L K+ (test code = 2852790364) 4.2 mmol/L 3.5-5.0 AC CA IONZ (test code = 3049873971) 4.10 mg/dL 4.50-5.30 L GLUCOSE (test code = 6255314528) 194 mg/dL 70-110 H LACTIC ACID (test code = 2731606720) 3.08 mmol/L 0.50-2.20 H Lab Interpretation (test code = 38634-9) Abnormal [facility]. Xwyobqssy4144-28-89 12:53:51* Test Item Value Reference Range Interpretation Comme nts Miscellaneous Test (test code = 9476390682) See scanned report Performing Lab (test code = 6834124179) [facility]. Ozgogwcuz7873-86-95 12:53:51* Test Item Value Reference Range Interpretation Comme nts Miscellaneous Test (test code = 5178806707) See scanned report Performing Lab (test code = 2399546654) [facility]. [facility] 12:53:51* Test Item Value Reference Range Interpretation Comme nts Miscellaneous Test (test code = 8286083637) See scanned report Performing Lab (test code = 1845017686) [facility]. Ppjcihiei0425-90-33 12:53:51* Test Item Value Reference Range Interpretation Comme nts Miscellaneous Test (test code = 7659903549) See scanned report Performing Lab (test code = 1749170318) [facility] GLUCOSE (AUTOMATED)2023-02-28 12:41:04* Test Item Value Reference Range Interpretation Comme nts POCT GLU (test code = 5289493202) 180 mg/dL 70-110 H Lab Interpretation (test cod e = 48398-6) Abnormal [facility] GLUCOSE (AUTOMATED)2023-02-28 12:41:04* Test Item Value Reference Range Interpretation Comme nts POCT GLU (test code = 3340582052) 180 mg/dL 70-110 H Lab Interpretation (test cod e = 72007-6) Abnormal [facility] GLUCOSE (AUTOMATED)2023-02-28 12:39:42* Test Item Value Reference Range Interpretation Comme nts POCT GLU (test code = 0603007331) 35 mg/dL 70-110 LL Lab Interpretation (test cod e = 70097-0) Abnormal [facility] GLUCOSE (AUTOMATED)2023-02-28 12:39:42* Test Item Value Reference Range Interpretation Comme nts POCT GLU (test code = 5301112215) 35 mg/dL 70-110 LL Lab Interpretation (test cod e = 18123-3) Abnormal [facility] GLUCOSE (AUTOMATED)2023-02-28 09:26:10* Test Item Value Reference Range Interpretation Comme nts POCT GLU (test code = 0297189323) 166 mg/dL 70-110 H Lab Interpretation (test cod e = 97827-8) Abnormal [facility] GLUCOSE (AUTOMATED)2023-02-28 09:26:10* Test Item Value Reference Range Interpretation Comme nts POCT GLU (test code = 3904157532) 166 mg/dL 70-110 H Lab Interpretation (test cod e = 34355-9) Abnormal [facility] GLUCOSE (AUTOMATED)2023-02-28 05:09:21* Test Item Value Reference Range Interpretation Comme nts POCT GLU (test code = 7983635024) 159 mg/dL 70-110 H Lab Interpretation (test cod e = 73737-0) Abnormal [facility] GLUCOSE (AUTOMATED)2023-02-28 05:09:21* Test Item Value Reference Range Interpretation Comme nts POCT GLU (test code = 3352827243) 159 mg/dL 70-110 H Lab Interpretation (test cod e = 83984-8) Abnormal [facility] GLUCOSE (AUTOMATED)2023-02-28 01:52:20* Test Item Value Reference Range Interpretation Comme nts POCT GLU (test code = 4773049409) 184 mg/dL 70-110 H Lab Interpretation (test cod e = 96581-5) Abnormal [facility] GLUCOSE (AUTOMATED)2023-02-28 01:52:20* Test Item Value Reference Range Interpretation Comme nts POCT GLU (test code = 2707225296) 184 mg/dL 70-110 H Lab Interpretation (test cod e = 16001-7) Abnormal [facility] GLUCOSE (AUTOMATED)2023-02-27 21:10:26* Test Item Value Reference Range Interpretation Comme nts POCT GLU (test code = 6417907260) 238 mg/dL 70-110 H Lab Interpretation (test cod e = 61175-1) Abnormal [facility] GLUCOSE (AUTOMATED)2023-02-27 21:10:26* Test Item Value Reference Range Interpretation Comme nts POCT GLU (test code = 5833271088) 238 mg/dL 70-110 H Lab Interpretation (test cod e = 44120-6) Abnormal [facility] JXEXRBX8157-95-30 17:23:58* Test Item Value Reference Range Interpretation Comme nts SPUTUM CULTURE (test code = 622-1) 2+ Respiratory driss: Commensal upper respiratory microorganisms only. Gram stain (test code = 664-3) Few Epithelial cells present MIKAYLA (test code = MIKAYLA) Bacterial pathogens associated with lower respiratory infections were not identified, which include Pseudomonas aeruginosa and Staphylococcus aureus (MRSA or MSSA). [facility] IANLIFV8595-31-76 17:23:58* Test Item Value Reference Range Interpretation Comme nts SPUTUM CULTURE (test code = 622-1) 2+ Respiratory driss: Commensal upper respiratory microorganisms only. Gram stain (test code = 664-3) Few Epithelial cells present MIKAYLA (test code = MIKAYLA) Bacterial pathogens associated with lower respiratory infections were not identified, which include Pseudomonas aeruginosa and Staphylococcus aureus (MRSA or MSSA). [facility] GLUCOSE (AUTOMATED)2023-02-27 17:12:51* Test Item Value Reference Range Interpretation Comme nts POCT GLU (test code = 3610197988) 211 mg/dL 70-110 H Lab Interpretation (test cod e = 48938-0) Abnormal [facility] GLUCOSE (AUTOMATED)2023-02-27 17:12:51* Test Item Value Reference Range Interpretation Comme nts POCT GLU (test code = 0960218131) 211 mg/dL 70-110 H Lab Interpretation (test cod e = 16516-8) Abnormal [facility] GLUCOSE (AUTOMATED)2023-02-27 13:06:28* Test Item Value Reference Range Interpretation Comme nts POCT GLU (test code = 9826308355) 89 mg/dL 70-110 Lab Interpretation (test cod e = 50270-1) Normal [facility] GLUCOSE (AUTOMATED)2023-02-27 13:06:28* Test Item Value Reference Range Interpretation Comme nts POCT GLU (test code = 4804418808) 89 mg/dL 70-110 Lab Interpretation (test cod e = 84794-1) Normal [facility] GLUCOSE (AUTOMATED)2023-02-27 12:23:45* Test Item Value Reference Range Interpretation Comme nts POCT GLU (test code = 5107718150) 124 mg/dL 70-110 H Lab Interpretation (test cod e = 38248-8) Abnormal [facility] GLUCOSE (AUTOMATED)2023-02-27 12:23:45* Test Item Value Reference Range Interpretation Comme nts POCT GLU (test code = 5995199045) 124 mg/dL 70-110 H Lab Interpretation (test cod e = 03150-5) Abnormal [facility] GLUCOSE (AUTOMATED)2023-02-27 11:34:26* Test Item Value Reference Range Interpretation Comme nts POCT GLU (test code = 9497208741) 146 mg/dL 70-110 H Lab Interpretation (test cod e = 35181-3) Abnormal [facility] GLUCOSE (AUTOMATED)2023-02-27 11:34:26* Test Item Value Reference Range Interpretation Comme nts POCT GLU (test code = 2635651583) 146 mg/dL 70-110 H Lab Interpretation (test cod e = 15075-2) Abnormal [facility] GLUCOSE (AUTOMATED)2023-02-27 10:20:17* Test Item Value Reference Range Interpretation Comme nts POCT GLU (test code = 8473716389) 202 mg/dL 70-110 H Lab Interpretation (test cod e = 38389-1) Abnormal [facility] GLUCOSE (AUTOMATED)2023-02-27 10:20:17* Test Item Value Reference Range Interpretation Comme nts POCT GLU (test code = 8430325139) 202 mg/dL 70-110 H Lab Interpretation (test cod e = 73464-5) [facility] [id number] 10:11:30* Test Item Value Reference Range Interpretation Comme nts LUCAS AM (test code = 9959077309) 45.1 ug/dL 4.5-23.0 H MIKAYLA (test code = MIKAYLA) Biotin has been reported to cause a positive bias, interpret results relative to patient's use of biotin. Lab Interpretation (test code = 38831-4) [facility] [id number] 10:11:30* Test Item Value Reference Range Interpretation Comme nts LUCAS AM (test code = 8963274553) 45.1 ug/dL 4.5-23.0 H MIKAYLA (test code = MIKAYLA) Biotin has been reported to cause a positive bias, interpret results relative to patient's use of biotin. Lab Interpretation (test code = 73930-9) [facility] [id number] 10:11:30* Test Item Value Reference Range Interpretation Comme nts LUCAS AM (test code = 2055171399) 45.1 ug/dL 4.5-23.0 H MIKAYLA (test code = MIKAYLA) Biotin has been reported to cause a positive bias, interpret results relative to patient's use of biotin. Lab Interpretation (test code = 19292-7) [facility] [id number] 10:11:30 * Test Item Value Reference Range Interpretation Comme nts TSH (test code = 0680638837) 6.45 See_Comment H [Automated messa ge] The system which generated this result transmitted reference range: 0.45 - 4.70 mIU/L. The reference range was not used to interpret this result as normal/abnormal. Lab Interpretation (test code = 50482-0) [facility] [id number] 10:11:30* Test Item Value Reference Range Interpretation Comme nts LUCAS AM (test code = 6466776152) 45.1 ug/dL 4.5-23.0 H MIKAYLA (test code = MIKALYA) Biotin has been reported to cause a positive bias, interpret results relative to patient's use of biotin. Lab Interpretation (test code = 50995-4) [facility] [id number] 10:11:30 * Test Item Value Reference Range Interpretation Comme nts TSH (test code = 0820788895) 6.45 See_Comment H [Automated messa ge] The system which generated this result transmitted reference range: 0.45 - 4.70 mIU/L. The reference range was not used to interpret this result as normal/abnormal. Lab Interpretation (test code = 07085-5) Abnormal [place] [id number] 09:57:28* Test Item Value Reference Range Interpretation Comme nts FREE T3 (test code = 4750118210) 3.23 pg/mL 2.77-5.27 Lab Interpretation (test cod e = 77847-2) Normal [facility] 09:57:28* Test Item Value Reference Range Interpretation Comme nts FREE T3 (test code = 5968135894) 3.23 pg/mL 2.77-5.27 Lab Interpretation (test cod e = 63022-3) Normal [place] 762342023-06-28 09:48:47* Test Item Value Reference Range Interpretation Comme nts FREE T4 (test code = 8816176971) 2.18 See_Comment [Automated messa ge] The system which generated this result transmitted reference range: 0.78 - 2.20 ng/dL:. The reference range was not used to interpret this result as normal/abnormal. Lab Interpretation (test code = 46501-5) Normal [place] 762342023-06-28 09:48:47* Test Item Value Reference Range Interpretation Comme nts FREE T4 (test code = 3740314959) 2.18 See_Comment [Automated messa ge] The system which generated this result transmitted reference range: 0.78 - 2.20 ng/dL:. The reference range was not used to interpret this result as normal/abnormal. Lab Interpretation (test code = 56905-2) [facility] 09:44:50* Test Item Value Reference Range Interpretation Comme nts Procalcitonin (test code = 6944610011) 4.98 ng/mL <=0.07 H MIKAYLA (test code = MIKAYLA) INTERPRETATION OF [...] lung abscess/empyema. For further information please refer to:[email or web address] Lab Interpretation (test code = 34837-6) [facility] 09:44:50* Test Item Value Reference Range Interpretation Comme nts Procalcitonin (test code = 7008587556) 4.98 ng/mL <=0.07 H MIKAYLA (test code = MIKAYLA) INTERPRETATION OF [...] lung abscess/empyema. For further information please refer to:[email or web address] Lab Interpretation (test code = 12867-6) Abnormal [facility] WITH [id number] 09:30:24* Test Item Value Reference Range Interpretation Comme nts WBC (test code = 6690-2) 22.46 See_Comment H [Automated [employer] ge] The system which generated this result transmitted reference range: 4.20 - 10.70 10*3/?L. The reference range was not used to interpret this result as normal/abnormal. RBC (test code = 789-8) 2.46 See_Comment L [Automated messa ge] The system which generated this result transmitted reference range: 4.26 - 5.52 10*6/?L. The reference range was not used to interpret this result as normal/abnormal. HGB (test code = 718-7) 7.7 g/dL 12.2-16.4 L HCT (test code = 4544-3) 23.3 % 38.4-49.3 L MCV (test code = 787-2) 94.7 fL 81.7-95.6 MCH (test code = 785-6) 31.3 pg 26.1-32.7 MCHC (test code = 786-4) 33.0 g/dL 31.2-35.0 RDW-SD (test code = 90309-6) 61.5 fL 38.5-51.6 H RDW-CV (test code = 788-0) 21.0 % 12.1-15.4 H PLT (test code = 777-3) 61 See_Comment L [Automated messa ge] The system which generated this result transmitted reference range: 150 - 328 10*3/?L. The reference range was not used to interpret this result as normal/abnormal. MPV (test code = 36297-6) Not Measured IPF % (test code = 1399290676) 26.3 % 1.2-10.7 H Platelet count measured by fluorescence method. NRBC/100 WBC (test code = 4080979052) 1.8 See_Comment [Automated [employer] [place] ssage] The system which generated this result transmitted reference range: 0.0 - 10.0 /100 WBCs. The reference range was not used to interpret this result as normal/abnormal. NRBC x10^3 (test code = 5601856466) 0.41 See_Comment [Automated messa ge] The system which generated this result transmitted reference range: 10*3/?L. The reference range was not used to interpret this result as normal/abnormal. GRAN MAT (NEUT) % (test code = 770-8) 81.3 % IMM GRAN % (test code = 9011212695) 3.30 % LYMPH % (test code = 736-9) 10.6 % MONO % (test code = 5905-5) 4.3 % EOS % (test code = 713-8) 0.2 % BASO % (test code = 706-2) 0.3 % GRAN MAT x10^3(ANC) (test code = 0657023964) 18.27 10*3/uL 1.99-6.95 H IMM GRAN x10^3 (test code = 0329251912) 0.75 10*3/uL 0.00-0.06 H LYMPH x10^3 (test code = 731-0) 2.37 10*3/uL 1.09-3.23 MONO x10^3 (test code = 742-7) 0.97 10*3/uL 0.36-1.02 EOS x10^3 (test code = 711-2) 0.04 10*3/uL 0.06-0.53 L BASO x10^3 (test code = 704-7) 0.06 10*3/uL 0.01-0.09 BRADLEY CELLS (test code = 7790-9) 2+ See_Comment A [Automated messa ge] The system which generated this result transmitted reference range: (none). The reference range was not used to interpret this result as normal/abnormal. POLYCHROMASIA (test code = 44894-2) 2+ See_Comment [Automated messa ge] The system which generated this result transmitted reference range: 2+. The reference range was not used to interpret this result as normal/abnormal. Lab Interpretation (test code = 68900-8) Abnormal [facility] WITH [id number] 09:30:24* Test Item Value Reference Range Interpretation Comme nts WBC (test code = 6690-2) 22.46 See_Comment H [Automated messa ge] The system which generated this result transmitted reference range: 4.20 - 10.70 10*3/?L. The reference range was not used to interpret this result as normal/abnormal. RBC (test code = 789-8) 2.46 See_Comment L [Automated messa ge] The system which generated this result transmitted reference range: 4.26 - 5.52 10*6/?L. The reference range was not used to interpret this result as normal/abnormal. HGB (test code = 718-7) 7.7 g/dL 12.2-16.4 L HCT (test code = 4544-3) 23.3 % 38.4-49.3 L MCV (test code = 787-2) 94.7 fL 81.7-95.6 MCH (test code = 785-6) 31.3 pg 26.1-32.7 MCHC (test code = 786-4) 33.0 g/dL 31.2-35.0 RDW-SD (test code = 48525-4) 61.5 fL 38.5-51.6 H RDW-CV (test code = 788-0) 21.0 % 12.1-15.4 H PLT (test code = 777-3) 61 See_Comment L [Automated [employer]] The system which generated this result transmitted reference range: 150 - 328 10*3/?L. The reference range was not used to interpret this result as normal/abnormal. MPV (test code = 89309-6) Not Measured IPF % (test code = 8498410456) 26.3 % 1.2-10.7 H Platelet count measured by fluorescence method. NRBC/100 WBC (test code = 9922854603) 1.8 See_Comment [Automated [place] ssage] The system which generated this result transmitted reference range: 0.0 - 10.0 /100 WBCs. The reference range was not used to interpret this result as normal/abnormal. NRBC x10^3 (test code = 2817464204) 0.41 See_Comment [Automated [employer]] The system which generated this result transmitted reference range: 10*3/?L. The reference range was not used to interpret this result as normal/abnormal. GRAN MAT (NEUT) % (test code = 770-8) 81.3 % IMM GRAN % (test code = 9825179918) 3.30 % LYMPH % (test code = 736-9) 10.6 % MONO % (test code = 5905-5) 4.3 % EOS % (test code = 713-8) 0.2 % BASO % (test code = 706-2) 0.3 % GRAN MAT x10^3(ANC) (test code = 1232309833) 18.27 10*3/uL 1.99-6.95 H IMM GRAN x10^3 (test code = 2674376378) 0.75 10*3/uL 0.00-0.06 H LYMPH x10^3 (test code = 731-0) 2.37 10*3/uL 1.09-3.23 MONO x10^3 (test code = 742-7) 0.97 10*3/uL 0.36-1.02 EOS x10^3 (test code = 711-2) 0.04 10*3/uL 0.06-0.53 L BASO x10^3 (test code = 704-7) 0.06 10*3/uL 0.01-0.09 BRADLEY CELLS (test code = 7790-9) 2+ See_Comment A [Automated messa ge] The system which generated this result transmitted reference range: (none). The reference range was not used to interpret this result as normal/abnormal. POLYCHROMASIA (test code = 39467-8) 2+ See_Comment [Automated messa ge] The system which generated this result transmitted reference range: 2+. The reference range was not used to interpret this result as normal/abnormal. Lab Interpretation (test code = 93089-9) Abnormal [facility] GLUCOSE (AUTOMATED)2023-02-27 09:30:14* Test Item Value Reference Range Interpretation Comme nts POCT GLU (test code = 5330759505) 214 mg/dL 70-110 H Lab Interpretation (test cod e = 26418-7) [facility]normal [facility] GLUCOSE (AUTOMATED)2023-02-27 09:30:14* Test Item Value Reference Range Interpretation Comme nts POCT GLU (test code = 5367708523) 214 mg/dL 70-110 H Lab Interpretation (test cod e = 38504-2) Abnormal [facility]2023-06-28 09:29:03* Test Item Value Reference Range Interpretation Comme nts DIGOXIN (test code = 9880248429) 0.7 ng/mL 0.8-1.6 L MIKAYLA (test code = MIKAYLA) Arrythmias: ?1.5 - 2.0 ng/mLToxic Range: ? Greater than or equal to 2.4 ng/mL Lab Interpretation (test code = 10314-6) Abnormal [facility]2023-06-28 09:29:03* Test Item Value Reference Range Interpretation Comme nts DIGOXIN (test code = 0930979529) 0.7 ng/mL 0.8-1.6 L MIKAYLA (test code = MIKAYLA) Arrythmias: ?1.5 - 2.0 ng/mLToxic Range: ? Greater than or equal to 2.4 ng/mL Lab Interpretation (test code = 47853-3) [facility]* Test Item Value Reference Range Interpretation Comme nts PHOSPHORUS (test code = 2854846362) 2.4 mg/dL 2.5-5.0 L Lab Interpretation (test cod e = 19061-0) [facility] 09:25:05* Test Item Value Reference Range Interpretation Comme nts PHOSPHORUS (test code = 9439611898) 2.4 mg/dL 2.5-5.0 L Lab Interpretation (test cod e = 73811-9) Abnormal [facility] METABOLIC PANEL (NA, K, CL, CO2, GLUCOSE, BUN, CREATININE, CA)2023-02-27 09:25:04* Test Item Value Reference Range Interpretation Comme nts NA (test code = 1844370580) 138 mmol/L 135-145 K (test code = 2270706031) 3.3 mmol/L 3.5-5.0 L CL (test code = 6158663020) 108 mmol/L 98-108 CO2 TOTAL (test code = 9794300052) 19 mmol/L 23-31 L AGAP (test code = 4249949102) 11 2-16 BUN (test code = 3267982023) 38 mg/dL 7-23 H GLUCOSE (test code = 4078245299) 251 mg/dL 70-110 H CREATININE (test code = 4723485590) 1.91 mg/dL 0.60-1.25 H CALCIUM (test code = 7876121775) 6.6 mg/dL 8.6-10.6 L eGFR (test code = 9565814549) 36.0 mL/min/1.73m2 MIKAYLA (test code = MIKAYLA) Association of [...] or abnormalities in imaging tests). Lab Interpretation (test code = 31921-2) [facility]* Test Item Value Reference Range Interpretation Comme nts MAGNESIUM (test code = 5622145049) 2.4 mg/dL 1.7-2.4 Lab Interpretation (test cod e = 07985-9) [facility] (ALB,T.PRO,BILI T,BU/BC,ALT,AST,ALK PHOS)2023-02-27 09:25:04* Test Item Value Reference Range Interpretation Comme nts TOTAL BILI (test code = 8687248786) 2.0 mg/dL 0.1-1.1 H BILI UNCON (test code = 0523476988) 0.6 mg/dL 0.1-1.1 BILI CONJ (test code = 0239536668) 0.3 mg/dL 0.0-0.3 T PROTEIN (test code = 1240613852) 5.5 g/dL 6.3-8.2 L ALBUMIN (test code = 3784107444) 2.3 g/dL 3.5-5.0 L ALK PHOS (test code = 7690511589) 129 U/L 34-122 H ALTv (test code = 1742-6) 318 U/L 5-50 H AST(SGOT) (test code = 4731987734) 347 U/L 13-40 H Lab Interpretation (test cod e = 27937-4) Abnormal [facility] METABOLIC PANEL (NA, K, CL, CO2, GLUCOSE, BUN, CREATININE, CA)2023-02-27 09:25:04* Test Item Value Reference Range Interpretation Comme nts NA (test code = 3932138171) 138 mmol/L 135-145 K (test code = 3528813305) 3.3 mmol/L 3.5-5.0 L CL (test code = 8887828681) 108 mmol/L 98-108 CO2 TOTAL (test code = 9218415902) 19 mmol/L 23-31 L AGAP (test code = 3657885226) 11 2-16 BUN (test code = 4624688279) 38 mg/dL 7-23 H GLUCOSE (test code = 8026133311) 251 mg/dL 70-110 H CREATININE (test code = 0902670024) 1.91 mg/dL 0.60-1.25 H CALCIUM (test code = 1868242359) 6.6 mg/dL 8.6-10.6 L eGFR (test code = 2152964316) 36.0 mL/min/1.73m2 MIKAYLA (test code = MIKAYLA) Association of [...] or abnormalities in imaging tests). Lab Interpretation (test code = 90769-4) [facility] 09:25:04* Test Item Value Reference Range Interpretation Comme nts MAGNESIUM (test code = 5784628479) 2.4 mg/dL 1.7-2.4 Lab Interpretation (test cod e = 17289-1) [facility]94439[facility] (ALB,T.PRO,BILI T,BU/BC,ALT,AST,ALK PHOS)2023-02-27 09:25:04* Test Item Value Reference Range Interpretation Comme nts TOTAL BILI (test code = 2006543309) 2.0 mg/dL 0.1-1.1 H BILI UNCON (test code = 8023784730) 0.6 mg/dL 0.1-1.1 BILI CONJ (test code = 7783286826) 0.3 mg/dL 0.0-0.3 T PROTEIN (test code = 0334358028) 5.5 g/dL 6.3-8.2 L ALBUMIN (test code = 5515386144) 2.3 g/dL 3.5-5.0 L ALK PHOS (test code = 3923796044) 129 U/L 34-122 H ALTv (test code = 1742-6) 318 U/L 5-50 H AST(SGOT) (test code = 5375443343) 347 U/L 13-40 H Lab Interpretation (test cod e = 32814-4) [facility]23-[facility]-27 08:58:17* Test Item Value Reference Range Interpretation Comme nts APTT Patient (test code = 3173-2) 66 See_Comment H [Automated messa ge] The system which generated this result transmitted reference range: 26 - 36 Seconds. The reference range was not used to interpret this result as normal/abnormal. Lab Interpretation (test code = 26580-1) [facility]normal [facility]for [facility] with [facility] In[facility]2023-02-27 08:58:17* Test Item Value Reference Range Interpretation Comme nts APTT Patient (test code = 3173-2) 66 See_Comment H [Automated messa ge] The system which generated this result transmitted reference range: 26 - 36 Seconds. The reference range was not used to interpret this result as normal/abnormal. Lab Interpretation (test code = 90371-5) Abnormal [facility] GLUCOSE (AUTOMATED)2023-02-27 08:34:41* Test Item Value Reference Range Interpretation Comme nts POCT GLU (test code = 9890864873) 278 mg/dL 70-110 H Lab Interpretation (test cod e = 02700-2) Abnormal [facility] GLUCOSE (AUTOMATED)2023-02-27 08:34:41* Test Item Value Reference Range Interpretation Comme nts POCT GLU (test code = 7631517445) 278 mg/dL 70-110 H Lab Interpretation (test cod e = 16344-2) Abnormal [facility] GLUCOSE (AUTOMATED)2023-02-27 07:21:52* Test Item Value Reference Range Interpretation Comme nts POCT GLU (test code = 1752381728) 331 mg/dL 70-110 H Lab Interpretation (test cod e = 72383-2) Abnormal [facility] GLUCOSE (AUTOMATED)2023-02-27 07:21:52* Test Item Value Reference Range Interpretation Comme nts POCT GLU (test code = 5744769170) 331 mg/dL 70-110 H Lab Interpretation (test cod e = 86333-7) Abnormal [facility] GLUCOSE (AUTOMATED)2023-02-27 06:16:49* Test Item Value Reference Range Interpretation Comme nts POCT GLU (test code = 1602834681) 340 mg/dL 70-110 H Lab Interpretation (test cod e = 84416-6) Abnormal [facility] GLUCOSE (AUTOMATED)2023-02-27 06:16:49* Test Item Value Reference Range Interpretation Comme nts POCT GLU (test code = 2863793613) 340 mg/dL 70-110 H Lab Interpretation (test cod e = 42088-7) Abnormal [facility] GLUCOSE (AUTOMATED)2023-02-27 05:22:38* Test Item Value Reference Range Interpretation Comme nts POCT GLU (test code = 3078750933) 350 mg/dL 70-110 H Lab Interpretation (test cod e = 24179-0) Abnormal [facility] GLUCOSE (AUTOMATED)2023-02-27 05:22:38* Test Item Value Reference Range Interpretation Comme nts POCT GLU (test code = 0821563550) 350 mg/dL 70-110 H Lab Interpretation (test cod e = 16281-9) Abnormal [facility] GLUCOSE (AUTOMATED)2023-02-27 04:35:55* Test Item Value Reference Range Interpretation Comme nts POCT GLU (test code = 5461293933) 355 mg/dL 70-110 H Lab Interpretation (test cod e = 79494-0) Abnormal [facility] GLUCOSE (AUTOMATED)2023-02-27 04:35:55* Test Item Value Reference Range Interpretation Comme nts POCT GLU (test code = 2705805843) 355 mg/dL 70-110 H Lab Interpretation (test cod e = 48871-5) Abnormal [facility] GLUCOSE (AUTOMATED)2023-02-27 01:18:12* Test Item Value Reference Range Interpretation Comme nts POCT GLU (test code = 1284236101) 319 mg/dL 70-110 H Lab Interpretation (test cod e = 55498-5) Abnormal [facility] GLUCOSE (AUTOMATED)2023-02-27 01:18:12* Test Item Value Reference Range Interpretation Comme nts POCT GLU (test code = 8229837568) 319 mg/dL 70-110 H Lab Interpretation (test cod e = 70682-8) Abnormal [facility] WITH [id number] 21:59:45* Test Item Value Reference Range Interpretation Comme nts WBC (test code = 6690-2) 22.56 See_Comment H [Automated messa ge] The system which generated this result transmitted reference range: 4.20 - 10.70 10*3/?L. The reference range was not used to interpret this result as normal/abnormal. RBC (test code = 789-8) 2.51 See_Comment L [Automated messa ge] The system which generated this result transmitted reference range: 4.26 - 5.52 10*6/?L. The reference range was not used to interpret this result as normal/abnormal. HGB (test code = 718-7) 8.0 g/dL 12.2-16.4 L HCT (test code = 4544-3) 23.8 % 38.4-49.3 L MCV (test code = 787-2) 94.8 fL 81.7-95.6 MCH (test code = 785-6) 31.9 pg 26.1-32.7 MCHC (test code = 786-4) 33.6 g/dL 31.2-35.0 RDW-SD (test code = 06892-6) 59.6 fL 38.5-51.6 H RDW-CV (test code = 788-0) 21.0 % 12.1-15.4 H PLT (test code = 777-3) 56 See_Comment L [Automated messa ge] The system which generated this result transmitted reference range: 150 - 328 10*3/?L. The reference range was not used to interpret this result as normal/abnormal. MPV (test code = 93313-3) Not Measured IPF % (test code = 9534497590) 22.7 % 1.2-10.7 H Platelet count measured by fluorescence method. NRBC/100 WBC (test code = 0980507712) 1.9 See_Comment [Automated [place] ssage] The system which generated this result transmitted reference range: 0.0 - 10.0 /100 WBCs. The reference range was not used to interpret this result as normal/abnormal. NRBC x10^3 (test code = 6916692625) 0.42 See_Comment [Automated messa ge] The system which generated this result transmitted reference range: 10*3/?L. The reference range was not used to interpret this result as normal/abnormal. GRAN MAT (NEUT) % (test code = 770-8) 83.7 % IMM GRAN % (test code = 3487238064) 4.10 % LYMPH % (test code = 736-9) 5.5 % MONO % (test code = 5905-5) 6.5 % EOS % (test code = 713-8) 0.0 % BASO % (test code = 706-2) 0.2 % GRAN MAT x10^3(ANC) (test code = 2935876389) 18.86 10*3/uL 1.99-6.95 H IMM GRAN x10^3 (test code = 4261147054) 0.93 10*3/uL 0.00-0.06 H LYMPH x10^3 (test code = 731-0) 1.25 10*3/uL 1.09-3.23 MONO x10^3 (test code = 742-7) 1.47 10*3/uL 0.36-1.02 H EOS x10^3 (test code = 711-2) 0.06-0.53 L BASO x10^3 (test code = 704-7) 0.04 10*3/uL 0.01-0.09 BRADLEY CELLS (test code = 7790-9) 2+ See_Comment A [Automated messa ge] The system which generated this result transmitted reference range: (none). The reference range was not used to interpret this result as normal/abnormal. POLYCHROMASIA (test code = 46607-7) 2+ See_Comment [Automated messa ge] The system which generated this result transmitted reference range: 2+. The reference range was not used to interpret this result as normal/abnormal. BANDS (test code = 1224840054) Increased A Lab Interpretation (test code = 66498-4) Abnormal [facility] WITH [id number] 21:59:45* Test Item Value Reference Range Interpretation Comme nts WBC (test code = 6690-2) 22.56 See_Comment H [Automated messa ge] The system which generated this result transmitted reference range: 4.20 - 10.70 10*3/?L. The reference range was not used to interpret this result as normal/abnormal. RBC (test code = 789-8) 2.51 See_Comment L [Automated messa ge] The system which generated this result transmitted reference range: 4.26 - 5.52 10*6/?L. The reference range was not used to interpret this result as normal/abnormal. HGB (test code = 718-7) 8.0 g/dL 12.2-16.4 L HCT (test code = 4544-3) 23.8 % 38.4-49.3 L MCV (test code = 787-2) 94.8 fL 81.7-95.6 MCH (test code = 785-6) 31.9 pg 26.1-32.7 MCHC (test code = 786-4) 33.6 g/dL 31.2-35.0 RDW-SD (test code = 94065-9) 59.6 fL 38.5-51.6 H RDW-CV (test code = 788-0) 21.0 % 12.1-15.4 H PLT (test code = 777-3) 56 See_Comment L [Automated messa ge] The system which generated this result transmitted reference range: 150 - 328 10*3/?L. The reference range was not used to interpret this result as normal/abnormal. MPV (test code = 09615-1) Not Measured IPF % (test code = 7380672821) 22.7 % 1.2-10.7 H Platelet count measured by fluorescence method. NRBC/100 WBC (test code = 7781243165) 1.9 See_Comment [Automated [place] ssage] The system which generated this result transmitted reference range: 0.0 - 10.0 /100 WBCs. The reference range was not used to interpret this result as normal/abnormal. NRBC x10^3 (test code = 8921954266) 0.42 See_Comment [Automated messa ge] The system which generated this result transmitted reference range: 10*3/?L. The reference range was not used to interpret this result as normal/abnormal. GRAN MAT (NEUT) % (test code = 770-8) 83.7 % IMM GRAN % (test code = 9129252413) 4.10 % LYMPH % (test code = 736-9) 5.5 % MONO % (test code = 5905-5) 6.5 % EOS % (test code = 713-8) 0.0 % BASO % (test code = 706-2) 0.2 % GRAN MAT x10^3(ANC) (test code = 9245108862) 18.86 10*3/uL 1.99-6.95 H IMM GRAN x10^3 (test code = 2134410081) 0.93 10*3/uL 0.00-0.06 H LYMPH x10^3 (test code = 731-0) 1.25 10*3/uL 1.09-3.23 MONO x10^3 (test code = 742-7) 1.47 10*3/uL 0.36-1.02 H EOS x10^3 (test code = 711-2) 0.06-0.53 L BASO x10^3 (test code = 704-7) 0.04 10*3/uL 0.01-0.09 BRADLEY CELLS (test code = 7790-9) 2+ See_Comment A [Automated messa ge] The system which generated this result transmitted reference range: (none). The reference range was not used to interpret this result as normal/abnormal. POLYCHROMASIA (test code = 88216-0) 2+ See_Comment [Automated messa ge] The system which generated this result transmitted reference range: 2+. The reference range was not used to interpret this result as normal/abnormal. BANDS (test code = 1139866322) Increased A Lab Interpretation (test code = 20632-7) [facility] Lactic [id number] 21:29:28* Test Item Value Reference Range Interpretation Comme nts PH (test code = 2) 7.41 7.35-7.45 PCO2 (test code = 6898014470) 32 See_Comment L [Automated messa ge] The system which generated this result transmitted reference range: 35 - 45 mmHg. The reference range was not used to interpret this result as normal/abnormal. PO2 (test code = 5776042726) 122 See_Comment H [Automated messa ge] The system which generated this result transmitted reference range: 80 - 100 mmHg. The reference range was not used to interpret this result as normal/abnormal. HCO3 (test code = 2327873493) 20 See_Comment L [Automated messa ge] The system which generated this result transmitted reference range: 22 - 26 mEq/L. The reference range was not used to interpret this result as normal/abnormal. BE (test code = 1528677974) -4.5 See_Comment L [Automated messa ge] The system which generated this result transmitted reference range: -3.0 - 3.0 mEq/L. The reference range was not used to interpret this result as normal/abnormal. THB (test code = 9469735208) 5.8 g/dL 13.5-18.0 LL %O2HB (test code = 2709315386) 97.4 % 94.0-99.0 %COHB ART (test code = 6699233157) 1.1 % 0.0-1.5 %METHB ART (test code = 7547156995) 0.2 % 0.4-1.5 L VOL%O2 ART (test code = 0478405936) 8.2 % 15.0-23.0 L NA (test code = 1638159434) 135 mmol/L 135-145 K+ (test code = 0443980365) 4.3 mmol/L 3.5-5.0 AC CA IONZ (test code = 0572660802) 4.10 mg/dL 4.50-5.30 L GLUCOSE (test code = 4856994336) 283 mg/dL 70-110 H LACTIC ACID (test code = 3000756910) 1.90 mmol/L 0.50-2.20 Lab Interpretation (test code = 11415-0) [facility] + Lactic [id number] 21:29:28* Test Item Value Reference Range Interpretation Comme nts PH (test code = 2) 7.41 7.35-7.45 PCO2 (test code = 0533004737) 32 See_Comment L [Automated messa ge] The system which generated this result transmitted reference range: 35 - 45 mmHg. The reference range was not used to interpret this result as normal/abnormal. PO2 (test code = 0570738297) 122 See_Comment H [Automated messa ge] The system which generated this result transmitted reference range: 80 - 100 mmHg. The reference range was not used to interpret this result as normal/abnormal. HCO3 (test code = 6585103318) 20 See_Comment L [Automated messa ge] The system which generated this result transmitted reference range: 22 - 26 mEq/L. The reference range was not used to interpret this result as normal/abnormal. BE (test code = 9192929118) -4.5 See_Comment L [Automated messa ge] The system which generated this result transmitted reference range: -3.0 - 3.0 mEq/L. The reference range was not used to interpret this result as normal/abnormal. THB (test code = 1978507870) 5.8 g/dL 13.5-18.0 LL %O2HB (test code = 2588804088) 97.4 % 94.0-99.0 %COHB ART (test code = 2785696241) 1.1 % 0.0-1.5 %METHB ART (test code = 3384431474) 0.2 % 0.4-1.5 L VOL%O2 ART (test code = 0663618393) 8.2 % 15.0-23.0 L NA (test code = 4651785513) 135 mmol/L 135-145 K+ (test code = 6045522018) 4.3 mmol/L 3.5-5.0 AC CA IONZ (test code = 9703945021) 4.10 mg/dL 4.50-5.30 L GLUCOSE (test code = 9008334108) 283 mg/dL 70-110 H LACTIC ACID (test code = 1557669238) 1.90 mmol/L 0.50-2.20 Lab Interpretation (test code = 62678-5) Abnormal [facility] (for use with Heparin Infusion)2023-02-26 21:29:18* Test Item Value Reference Range Interpretation Comme nts APTT Patient (test code = 3173-2) 58 See_Comment H [Automated messa ge] The system which generated this result transmitted reference range: 26 - 36 Seconds. The reference range was not used to interpret this result as normal/abnormal. Lab Interpretation (test code = 47502-1) Abnormal [facility] (for use with Heparin Infusion)2023-02-26 21:29:18* Test Item Value Reference Range Interpretation Comme nts APTT Patient (test code = 3173-2) 58 See_Comment H [Automated messa ge] The system which generated this result transmitted reference range: 26 - 36 Seconds. The reference range was not used to interpret this result as normal/abnormal. Lab Interpretation (test code = 51113-5) Abnormal [facility] GLUCOSE (AUTOMATED)2023-02-26 21:13:49* Test Item Value Reference Range Interpretation Comme nts POCT GLU (test code = 9337551647) 294 mg/dL 70-110 H Lab Interpretation (test cod e = 96267-0) Abnormal [facility] GLUCOSE (AUTOMATED)2023-02-26 21:13:49* Test Item Value Reference Range Interpretation Comme nts POCT GLU (test code = 3065638913) 294 mg/dL 70-110 H Lab Interpretation (test cod e = 59874-4) Abnormal [facility] GLUCOSE (AUTOMATED)2023-02-26 16:31:02* Test Item Value Reference Range Interpretation Comme nts POCT GLU (test code = 6678112877) 226 mg/dL 70-110 H Lab Interpretation (test cod e = 95024-8) Abnormal [facility] GLUCOSE (AUTOMATED)2023-02-26 16:31:02* Test Item Value Reference Range Interpretation Comme nts POCT GLU (test code = 2149000673) 226 mg/dL 70-110 H Lab Interpretation (test cod e = 50088-7) [facility] 16:27:40* Test Item Value Reference Range Interpretation Comme nts LIPASE (test code = 8997816243) 263 U/L 0-220 H Lab Interpretation (test cod e = 41557-4) [facility] 16:27:40* Test Item Value Reference Range Interpretation Comme nts LIPASE (test code = 4182005667) 263 U/L 0-220 H Lab Interpretation (test cod e = 36368-6) [facility] 16:27:40* Test Item Value Reference Range Interpretation Comme nts LIPASE (test code = 8827279312) 263 U/L 0-220 H Lab Interpretation (test cod e = 93842-3) [facility] 16:27:40* Test Item Value Reference Range Interpretation Comme nts LIPASE (test code = 7629521835) 263 U/L 0-220 H Lab Interpretation (test cod e = 56791-8) [facility] (93717)(TOTAL CHOLESTEROL, TRIGLYCERIDES, HDL)2023-02-26 15:22:56* Test Item Value Reference Range Interpretation Comme nts CHOL (test code = 6058942321) 120-200 L HDL (test code = 2688659695) 7 mg/dL >=40 L HDLC RATIO (test code = 1496809754) Unable to calcul ate because, either CHOLESTEROL, HDL or both are less than the sensitivity of the analyzer. TRIG (test code = 0359701890) 47 mg/dL 30-170 LDL CHOL (test code = 23914-6) Unable to calcul ate because, either CHOLESTEROL, HDL or both are less than the sensitivity of the analyzer. VLDL (test code = 5540233398) 9 mg/dL 5-60 Lab Interpretation (test code = 64207-2) [facility] (95672)(TOTAL CHOLESTEROL, TRIGLYCERIDES, HDL)2023-02-26 15:22:56* Test Item Value Reference Range Interpretation Comme nts CHOL (test code = 5221360502) 120-200 L HDL (test code = 7685402405) 7 mg/dL >=40 L HDLC RATIO (test code = 4830446396) Unable to calcul ate because, either CHOLESTEROL, HDL or both are less than the sensitivity of the analyzer. TRIG (test code = 1555418632) 47 mg/dL 30-170 LDL CHOL (test code = 83953-1) Unable to calcul ate because, either CHOLESTEROL, HDL or both are less than the sensitivity of the analyzer. VLDL (test code = 3688486009) 9 mg/dL 5-60 Lab Interpretation (test code = 23024-3) [facility] (02139)(TOTAL CHOLESTEROL, TRIGLYCERIDES, HDL)2023-02-26 15:22:56* Test Item Value Reference Range Interpretation Comme nts CHOL (test code = 0437046124) 120-200 L HDL (test code = 1428366075) 7 mg/dL >=40 L HDLC RATIO (test code = 0662362057) Unable to calcul ate because, either CHOLESTEROL, HDL or both are less than the sensitivity of the analyzer. TRIG (test code = 6637123423) 47 mg/dL 30-170 LDL CHOL (test code = 92222-1) Unable to calcul ate because, either CHOLESTEROL, HDL or both are less than the sensitivity of the analyzer. VLDL (test code = 3749523946) 9 mg/dL 5-60 Lab Interpretation (test code = 33582-0) [facility] (97410)(TOTAL CHOLESTEROL, TRIGLYCERIDES, HDL)2023-02-26 15:22:56* Test Item Value Reference Range Interpretation Comme nts CHOL (test code = 0473924424) 120-200 L HDL (test code = 0223310767) 7 mg/dL >=40 L HDLC RATIO (test code = 7383083505) Unable to calcul ate because, either CHOLESTEROL, HDL or both are less than the sensitivity of the analyzer. TRIG (test code = 7239646929) 47 mg/dL 30-170 LDL CHOL (test code = 04019-1) Unable to calcul ate because, either CHOLESTEROL, HDL or both are less than the sensitivity of the analyzer. VLDL (test code = 2117479224) 9 mg/dL 5-60 Lab Interpretation (test code = 21425-3) Abnormal [facility] GLUCOSE (AUTOMATED)2023-02-26 14:46:34* Test Item Value Reference Range Interpretation Comme nts POCT GLU (test code = 0411997106) 152 mg/dL 70-110 H Lab Interpretation (test cod e = 87501-0) Abnormal [facility] GLUCOSE (AUTOMATED)2023-02-26 14:46:34* Test Item Value Reference Range Interpretation Comme nts POCT GLU (test code = 5028766767) 152 mg/dL 70-110 H Lab Interpretation (test cod e = 85985-0) Abnormal [facility] GLUCOSE (AUTOMATED)2023-02-26 13:29:31* Test Item Value Reference Range Interpretation Comme nts POCT GLU (test code = 9069253582) 128 mg/dL 70-110 H Lab Interpretation (test cod e = 81136-1) Abnormal [facility] GLUCOSE (AUTOMATED)2023-02-26 13:29:31* Test Item Value Reference Range Interpretation Comme nts POCT GLU (test code = 3310334687) 128 mg/dL 70-110 H Lab Interpretation (test cod e = 28221-4) Abnormal [facility] Packed RBC (in units), 1 Units 2023-02-26 12:56:29* Test Item Value Reference Range Interpretation Comme nts Cross Match Result (test code = 4409) Compatible ISBT Blood Type Code (test code = 802317) 5100 Unit Blood Type (test code = 4410) O Pos Unit Number (test code = 4411) [id number] Blood Expiration Date & Time (test code = 278556) [id number] Status Information (test code = 4412) Issued Product Identification (test code = 4413) Red Blood Cells Product Code (test code = 4414) [id number] Performed at [facility] [place] [id number] Free: [phone] No. [id number] [place] [facility] Packed RBC (in units), 1 Units 2023-02-26 12:56:29* Test Item Value Reference Range Interpretation Comme nts Cross Match Result (test code = 4409) Compatible ISBT Blood Type Code (test code = 793048) 5100 Unit Blood Type (test code = 4410) O Pos Unit Number (test code = 4411) [id number] Blood Expiration Date & Time (test code = 757076) [id number] Status Information (test code = 4412) Issued Product Identification (test code = 4413) Red Blood Cells Product Code (test code = 4414) [id number] Performed at [facility] [place] [id number] Free: [phone] No. [id number] [facility] [id number] 12:48:52* Test Item Value Reference Range Interpretation Comme nts LUCAS AM (test code = 0873355845) 73.9 ug/dL 4.5-23.0 H MIKAYLA (test code = MIKAYLA) Biotin has been reported to cause a positive bias, interpret results relative to patient's use of biotin. Lab Interpretation (test code = 39783-9) [facility]normal [facility] [id number] 12:48:52* Test Item Value Reference Range Interpretation Comme nts LUCAS AM (test code = 6866917335) 73.9 ug/dL 4.5-23.0 H MIKAYLA (test code = MIKAYLA) Biotin has been reported to cause a positive bias, interpret results relative to patient's use of biotin. Lab Interpretation (test code = 62802-1) Abnormal [facility] GLUCOSE (AUTOMATED)2023-02-26 12:27:59* Test Item Value Reference Range Interpretation Comme nts POCT GLU (test code = 7338173848) 141 mg/dL 70-110 H Lab Interpretation (test cod e = 58338-1) Abnormal [facility] GLUCOSE (AUTOMATED)2023-02-26 12:27:59* Test Item Value Reference Range Interpretation Comme nts POCT GLU (test code = 6509795992) 141 mg/dL 70-110 H Lab Interpretation (test cod e = 40633-6) [facility]2023-02-26 11:59:01* Test Item Value Reference Range Interpretation Comme nts APTT Patient (test code = 3173-2) 53 See_Comment H [Automated messa ge] The system which generated this result transmitted reference range: 26 - 36 Seconds. The reference range was not used to interpret this result as normal/abnormal. Lab Interpretation (test code = 64993-5) [facility]2023-02-26 11:59:01* Test Item Value Reference Range Interpretation Comme nts APTT Patient (test code = 3173-2) 53 See_Comment H [Automated messa ge] The system which generated this result transmitted reference range: 26 - 36 Seconds. The reference range was not used to interpret this result as normal/abnormal. Lab Interpretation (test code = 93963-2) Abnormal [facility] and Screen - ONCE [id number] 11:47:00 * Test Item Value Reference Range Interpretation Comme nts ABO & RH (test code = 20) O POSITIVE IAT (test code = 1185) Negative [facility] and Screen - ONCE [id number] 11:47:00 * Test Item Value Reference Range Interpretation Comme nts ABO & RH (test code = 20) O POSITIVE IAT (test code = 1185) Negative [facility] [id number] 11:37:17 * Test Item Value Reference Range Interpretation Comme nts TSH (test code = 0397564241) 5.65 See_Comment H [Automated messa ge] The system which generated this result transmitted reference range: 0.45 - 4.70 mIU/L. The reference range was not used to interpret this result as normal/abnormal. Lab Interpretation (test code = 18524-4) Abnormal [facility] [id number] 11:37:17 * Test Item Value Reference Range Interpretation Comme nts TSH (test code = 9288673967) 5.65 See_Comment H [Automated messa ge] The system which generated this result transmitted reference range: 0.45 - 4.70 mIU/L. The reference range was not used to interpret this result as normal/abnormal. Lab Interpretation (test code = 76057-9) Abnormal [facility] GLUCOSE (AUTOMATED)2023-02-26 11:36:27* Test Item Value Reference Range Interpretation Comme nts POCT GLU (test code = 9036464704) 162 mg/dL 70-110 H Lab Interpretation (test cod e = 25877-7) Abnormal [facility] GLUCOSE (AUTOMATED)2023-02-26 11:36:27* Test Item Value Reference Range Interpretation Comme nts POCT GLU (test code = 5369368399) 162 mg/dL 70-110 H Lab Interpretation (test cod e = 81608-3) Abnormal [facility] [id number] 11:23:38* Test Item Value Reference Range Interpretation Comme nts FREE T4 (test code = 0452241135) 2.04 See_Comment [Automated messa ge] The system which generated this result transmitted reference range: 0.78 - 2.20 ng/dL:. The reference range was not used to interpret this result as normal/abnormal. Lab Interpretation (test code = 78613-3) Normal [facility] [id number] 11:23:38* Test Item Value Reference Range Interpretation Comme nts FREE T3 (test code = 6870508799) 3.26 pg/mL 2.77-5.27 Lab Interpretation (test cod e = 54241-6) Normal [facility] [id number] 11:23:38* Test Item Value Reference Range Interpretation Comme nts FREE T4 (test code = 9725831691) 2.04 See_Comment [Automated messa ge] The system which generated this result transmitted reference range: 0.78 - 2.20 ng/dL:. The reference range was not used to interpret this result as normal/abnormal. Lab Interpretation (test code = 83587-6) Normal [facility] [id number] 11:23:38* Test Item Value Reference Range Interpretation Comme nts FREE T3 (test code = 2212595938) 3.26 pg/mL 2.77-5.27 Lab Interpretation (test cod e = 37607-4) Normal [facility] (04417) (ALB,T.PRO,BILI T,BU/BC,ALT,AST,ALK PHOS)2023-02-26 11:19:29* Test Item Value Reference Range Interpretation Comme nts TOTAL BILI (test code = 6047775164) 2.5 mg/dL 0.1-1.1 H BILI UNCON (test code = 2196514072) 0.7 mg/dL 0.1-1.1 BILI CONJ (test code = 4257713689) 0.7 mg/dL 0.0-0.3 H T PROTEIN (test code = 0196401515) 5.2 g/dL 6.3-8.2 L ALBUMIN (test code = 9148980295) 2.2 g/dL 3.5-5.0 L ALK PHOS (test code = 3600327382) 148 U/L 34-122 H ALTv (test code = 1742-6) 498 U/L 5-50 H AST(SGOT) (test code = 3277503088) 924 U/L 13-40 H Lab Interpretation (test cod e = 30139-7) Abnormal [facility] (49613) (ALB,T.PRO,BILI T,BU/BC,ALT,AST,ALK PHOS)2023-02-26 11:19:29* Test Item Value Reference Range Interpretation Comme nts TOTAL BILI (test code = 5112694236) 2.5 mg/dL 0.1-1.1 H BILI UNCON (test code = 3455474767) 0.7 mg/dL 0.1-1.1 BILI CONJ (test code = 8115925089) 0.7 mg/dL 0.0-0.3 H T PROTEIN (test code = 3977046693) 5.2 g/dL 6.3-8.2 L ALBUMIN (test code = 9296029396) 2.2 g/dL 3.5-5.0 L ALK PHOS (test code = 0957149224) 148 U/L 34-122 H ALTv (test code = 1742-6) 498 U/L 5-50 H AST(SGOT) (test code = 5476027530) 924 U/L 13-40 H Lab Interpretation (test cod e = 69220-4) Abnormal [facility] METABOLIC PANEL (NA, K, CL, CO2, GLUCOSE, BUN, CREATININE, CA)2023-02-26 11:06:18* Test Item Value Reference Range Interpretation Comme nts NA (test code = 3958586767) 135 mmol/L 135-145 K (test code = 7939897833) 3.8 mmol/L 3.5-5.0 CL (test code = 3633624396) 107 mmol/L 98-108 CO2 TOTAL (test code = 3730734075) 19 mmol/L 23-31 L AGAP (test code = 1705780649) 9 2-16 BUN (test code = 3305574950) 32 mg/dL 7-23 H GLUCOSE (test code = 7449524737) 188 mg/dL 70-110 H CREATININE (test code = 1102285961) 1.54 mg/dL 0.60-1.25 H CALCIUM (test code = 0111821264) 6.7 mg/dL 8.6-10.6 L eGFR (test code = 6049133361) 46.2 mL/min/1.73m2 MIKAYLA (test code = MIKAYLA) Association of [...] or abnormalities in imaging tests). Lab Interpretation (test code = 87601-9) [facility] 11:06:18* Test Item Value Reference Range Interpretation Comme nts MAGNESIUM (test code = 3748865658) 2.4 mg/dL 1.7-2.4 Lab Interpretation (test cod e = 92365-1) Normal [facility]2023-[facility]-27 11:06:18* Test Item Value Reference Range Interpretation Comme nts PHOSPHORUS (test code = 9593082478) 1.9 mg/dL 2.5-5.0 L Lab Interpretation (test cod e = 30220-6) Abnormal [facility]OL[facility] (NA, K, CL, CO2, GLUCOSE, BUN, CREATININE, CA)2023-02-26 11:06:18* Test Item Value Reference Range Interpretation Comme nts NA (test code = 9421262734) 135 mmol/L 135-145 K (test code = 4936749680) 3.8 mmol/L 3.5-5.0 CL (test code = 2555448498) 107 mmol/L 98-108 CO2 TOTAL (test code = 1879422813) 19 mmol/L 23-31 L AGAP (test code = 9975991397) 9 2-16 BUN (test code = 1318369628) 32 mg/dL 7-23 H GLUCOSE (test code = 6149928586) 188 mg/dL 70-110 H CREATININE (test code = 3050043420) 1.54 mg/dL 0.60-1.25 H CALCIUM (test code = 5025945032) 6.7 mg/dL 8.6-10.6 L eGFR (test code = 1967226868) 46.2 mL/min/1.73m2 MIKAYLA (test code = MIKAYLA) Association of [...] or abnormalities in imaging tests). Lab Interpretation (test code = 62828-2) [facility]* Test Item Value Reference Range Interpretation Comme nts MAGNESIUM (test code = 6404155989) 2.4 mg/dL 1.7-2.4 Lab Interpretation (test cod e = 51591-3) Normal [facility]23[facility] 11:06:18* Test Item Value Reference Range Interpretation Comme nts PHOSPHORUS (test code = 8014334953) 1.9 mg/dL 2.5-5.0 L Lab Interpretation (test cod e = 19785-7) Abnormal [facility] GLUCOSE (AUTOMATED)2023-02-26 10:38:15* Test Item Value Reference Range Interpretation Comme nts POCT GLU (test code = 5087979205) 184 mg/dL 70-110 H Lab Interpretation (test cod e = 60232-9) Abnormal [facility] GLUCOSE (AUTOMATED)2023-02-26 10:38:15* Test Item Value Reference Range Interpretation Comme nts POCT GLU (test code = 3771700758) 184 mg/dL 70-110 H Lab Interpretation (test cod e = 98823-9) Abnormal [facility] WITH [id number] 10:28:15* Test Item Value Reference Range Interpretation Comme nts WBC (test code = 6690-2) 18.21 See_Comment H [Automated messa ge] The system which generated this result transmitted reference range: 4.20 - 10.70 10*3/?L. The reference range was not used to interpret this result as normal/abnormal. RBC (test code = 789-8) 2.06 See_Comment L [Automated messa ge] The system which generated this result transmitted reference range: 4.26 - 5.52 10*6/?L. The reference range was not used to interpret this result as normal/abnormal. HGB (test code = 718-7) 6.8 g/dL 12.2-16.4 L HCT (test code = 4544-3) 19.9 % 38.4-49.3 L MCV (test code = 787-2) 96.6 fL 81.7-95.6 H MCH (test code = 785-6) 33.0 pg 26.1-32.7 H MCHC (test code = 786-4) 34.2 g/dL 31.2-35.0 RDW-SD (test code = 85957-5) 62.0 fL 38.5-51.6 H RDW-CV (test code = 788-0) 21.5 % 12.1-15.4 H PLT (test code = 777-3) 58 See_Comment L [Automated [employer]] The system which generated this result transmitted reference range: 150 - 328 10*3/?L. The reference range was not used to interpret this result as normal/abnormal. MPV (test code = 87830-3) Not Measured IPF % (test code = 1729459047) 21.1 % 1.2-10.7 H Platelet count measured by fluorescence method. NRBC/100 WBC (test code = 9867398421) 2.2 See_Comment [Automated [employer] ssage] The system which generated this result transmitted reference range: 0.0 - 10.0 /100 WBCs. The reference range was not used to interpret this result as normal/abnormal. NRBC x10^3 (test code = 7562201662) 0.40 See_Comment [Automated [employer]] The system which generated this result transmitted reference range: 10*3/?L. The reference range was not used to interpret this result as normal/abnormal. GRAN MAT (NEUT) % (test code = 770-8) 86.7 % IMM GRAN % (test code = 6380705198) 3.80 % LYMPH % (test code = 736-9) 5.8 % MONO % (test code = 5905-5) 3.3 % EOS % (test code = 713-8) 0.1 % BASO % (test code = 706-2) 0.3 % GRAN MAT x10^3(ANC) (test code = 7049270534) 15.78 10*3/uL 1.99-6.95 H IMM GRAN x10^3 (test code = 0296461926) 0.69 10*3/uL 0.00-0.06 H LYMPH x10^3 (test code = 731-0) 1.05 10*3/uL 1.09-3.23 L MONO x10^3 (test code = 742-7) 0.61 10*3/uL 0.36-1.02 EOS x10^3 (test code = 711-2) 0.06-0.53 L BASO x10^3 (test code = 704-7) 0.06 10*3/uL 0.01-0.09 POLYCHROMASIA (test code = 18409-9) 2+ See_Comment [Automated messa ge] The system which generated this result transmitted reference range: 2+. The reference range was not used to interpret this result as normal/abnormal. BANDS (test code = 3839694716) Increased A Lab Interpretation (test code = 44473-6) Abnormal [facility] WITH [id number] 10:28:15* Test Item Value Reference Range Interpretation Comme nts WBC (test code = 6690-2) 18.21 See_Comment H [Automated messa ge] The system which generated this result transmitted reference range: 4.20 - 10.70 10*3/?L. The reference range was not used to interpret this result as normal/abnormal. RBC (test code = 789-8) 2.06 See_Comment L [Automated messa ge] The system which generated this result transmitted reference range: 4.26 - 5.52 10*6/?L. The reference range was not used to interpret this result as normal/abnormal. HGB (test code = 718-7) 6.8 g/dL 12.2-16.4 L HCT (test code = 4544-3) 19.9 % 38.4-49.3 L MCV (test code = 787-2) 96.6 fL 81.7-95.6 H MCH (test code = 785-6) 33.0 pg 26.1-32.7 H MCHC (test code = 786-4) 34.2 g/dL 31.2-35.0 RDW-SD (test code = 27388-4) 62.0 fL 38.5-51.6 H RDW-CV (test code = 788-0) 21.5 % 12.1-15.4 H PLT (test code = 777-3) 58 See_Comment L [Automated messa ge] The system which generated this result transmitted reference range: 150 - 328 10*3/?L. The reference range was not used to interpret this result as normal/abnormal. MPV (test code = 81936-8) Not Measured IPF % (test code = 8551888760) 21.1 % 1.2-10.7 H Platelet count measured by fluorescence method. NRBC/100 WBC (test code = 2123809666) 2.2 See_Comment [Automated [employer] [place] ssage] The system which generated this result transmitted reference range: 0.0 - 10.0 /100 WBCs. The reference range was not used to interpret this result as normal/abnormal. NRBC x10^3 (test code = 6867586854) 0.40 See_Comment [Automated [employer]] The system which generated this result transmitted reference range: 10*3/?L. The reference range was not used to interpret this result as normal/abnormal. GRAN MAT (NEUT) % (test code = 770-8) 86.7 % IMM GRAN % (test code = 7935626018) 3.80 % LYMPH % (test code = 736-9) 5.8 % MONO % (test code = 5905-5) 3.3 % EOS % (test code = 713-8) 0.1 % BASO % (test code = 706-2) 0.3 % GRAN MAT x10^3(ANC) (test code = 7831112277) 15.78 10*3/uL 1.99-6.95 H IMM GRAN x10^3 (test code = 1626798615) 0.69 10*3/uL 0.00-0.06 H LYMPH x10^3 (test code = 731-0) 1.05 10*3/uL 1.09-3.23 L MONO x10^3 (test code = 742-7) 0.61 10*3/uL 0.36-1.02 EOS x10^3 (test code = 711-2) 0.06-0.53 L BASO x10^3 (test code = 704-7) 0.06 10*3/uL 0.01-0.09 POLYCHROMASIA (test code = 43733-1) 2+ See_Comment [Automated [employer]] The system which generated this result transmitted reference range: 2+. The reference range was not used to interpret this result as normal/abnormal. BANDS (test code = 4922261217) Increased A Lab Interpretation (test code = 67361-4) Abnormal [facility] GLUCOSE (AUTOMATED)2023-02-26 09:52:41* Test Item Value Reference Range Interpretation Comme nts POCT GLU (test code = 3475796936) 211 mg/dL 70-110 H Lab Interpretation (test cod e = 96798-3) [facility] 09:52:41* Test Item Value Reference Range Interpretation Comme nts POCT GLU (test code = 5862820065) 211 mg/dL 70-110 H Lab Interpretation (test cod e = 23117-4) Abnormal [facility] GLUCOSE (AUTOMATED)2023-02-26 08:44:40* Test Item Value Reference Range Interpretation Comme nts POCT GLU (test code = 8882726679) 273 mg/dL 70-110 H Lab Interpretation (test cod e = 54129-0) Abnormal [facility] GLUCOSE (AUTOMATED)2023-02-26 08:44:40* Test Item Value Reference Range Interpretation Comme nts POCT GLU (test code = 6202778821) 273 mg/dL 70-110 H Lab Interpretation (test cod e = 80408-4) Abnormal [facility] GLUCOSE (AUTOMATED)2023-02-26 07:52:37* Test Item Value Reference Range Interpretation Comme nts POCT GLU (test code = 0611501034) 292 mg/dL 70-110 H Lab Interpretation (test cod e = 44103-5) Abnormal [facility] GLUCOSE (AUTOMATED)2023-02-26 07:52:37* Test Item Value Reference Range Interpretation Comme nts POCT GLU (test code = 7207382664) 292 mg/dL 70-110 H Lab Interpretation (test cod e = 39432-3) [facility] 06:53:49* Test Item Value Reference Range Interpretation Comme nts POCT GLU (test code = 6152676479) 292 mg/dL 70-110 H Lab Interpretation (test cod e = 88904-9) Abnormal [facility] GLUCOSE (AUTOMATED)2023-02-26 06:53:49* Test Item Value Reference Range Interpretation Comme nts POCT GLU (test code = 6180276857) 292 mg/dL 70-110 H Lab Interpretation (test cod e = 61661-8) [facility] 05:48:57* Test Item Value Reference Range Interpretation Comme nts POCT GLU (test code = 9601254743) 293 mg/dL 70-110 H Lab Interpretation (test cod e = 59358-9) [facility] 05:48:57* Test Item Value Reference Range Interpretation Comme nts POCT GLU (test code = 0081358854) 293 mg/dL 70-110 H Lab Interpretation (test cod e = 17862-3) [facility] 04:39:22* Test Item Value Reference Range Interpretation Comme nts POCT GLU (test code = 9864734450) 322 mg/dL 70-110 H Lab Interpretation (test cod e = 75670-3) Abnormal [facility] GLUCOSE (AUTOMATED)2023-02-26 04:39:22* Test Item Value Reference Range Interpretation Comme nts POCT GLU (test code = 0811380274) 322 mg/dL 70-110 H Lab Interpretation (test cod e = 28697-6) [facility] 03:44:09* Test Item Value Reference Range Interpretation Comme nts POCT GLU (test code = 0479639005) 313 mg/dL 70-110 H Lab Interpretation (test cod e = 71707-9) [facility] 03:44:09* Test Item Value Reference Range Interpretation Comme nts POCT GLU (test code = 6603700709) 313 mg/dL 70-110 H Lab Interpretation (test cod e = 02754-1) [facility] 01:06:47* Test Item Value Reference Range Interpretation Comme nts POCT GLU (test code = 7462841349) 325 mg/dL 70-110 H Lab Interpretation (test cod e = 95915-3) Abnormal [facility] GLUCOSE (AUTOMATED)2023-02-26 01:06:47* Test Item Value Reference Range Interpretation Comme nts POCT GLU (test code = 3927111932) 325 mg/dL 70-110 H Lab Interpretation (test cod e = 10428-9) [facility] 22:14:50* Test Item Value Reference Range Interpretation Comme nts DIGOXIN (test code = 7770960595) 1.0 ng/mL 0.8-1.6 MIKAYLA (test code = MIKAYLA) Arrythmias: ?1.5 - 2.0 ng/mLToxic Range: ? Greater than or equal to 2.4 ng/mL Lab Interpretation (test code = 48370-7) [facility] 22:14:50* Test Item Value Reference Range Interpretation Comme nts DIGOXIN (test code = 6607361324) 1.0 ng/mL 0.8-1.6 MIKAYLA (test code = MIKAYLA) Arrythmias: ?1.5 - 2.0 ng/mLToxic Range: ? Greater than or equal to 2.4 ng/mL Lab Interpretation (test code = 29409-2) [facility] 22:01:18* Test Item Value Reference Range Interpretation Comme nts Procalcitonin (test code = 1648957830) 6.63 ng/mL <=0.07 H MIKAYLA (test code = MIKAYLA) INTERPRETATION OF [...] lung abscess/empyema. For further information please refer to:[email or web address] Lab Interpretation (test code = 39137-1) [facility] 22:01:18* Test Item Value Reference Range Interpretation Comme nts Procalcitonin (test code = 7279217064) 6.63 ng/mL <=0.07 H MIKAYLA (test code = MIKAYLA) INTERPRETATION OF [...] lung abscess/empyema. For further information please refer to:[email or web address] Lab Interpretation (test code = 38407-3) [facility]2023-02-25 21:24:00* Test Item Value Reference Range Interpretation Comme nts APTT Patient (test code = 3173-2) 51 See_Comment H [Automated messa ge] The system which generated this result transmitted reference range: 26 - 36 Seconds. The reference range was not used to interpret this result as normal/abnormal. Lab Interpretation (test code = 83988-1) [facility]2023-02-25 21:24:00* Test Item Value Reference Range Interpretation Comme nts APTT Patient (test code = 3173-2) 51 See_Comment H [Automated messa ge] The system which generated this result transmitted reference range: 26 - 36 Seconds. The reference range was not used to interpret this result as normal/abnormal. Lab Interpretation (test code = 92903-9) Abnormal [facility] GLUCOSE (AUTOMATED)2023-02-25 21:08:30* Test Item Value Reference Range Interpretation Comme nts POCT GLU (test code = 0292689965) 314 mg/dL 70-110 H Lab Interpretation (test cod e = 61145-3) Abnormal [facility] GLUCOSE (AUTOMATED)2023-02-25 21:08:30* Test Item Value Reference Range Interpretation Comme nts POCT GLU (test code = 1068769968) 314 mg/dL 70-110 H Lab Interpretation (test cod e = 94912-9) Abnormal [facility] GLUCOSE (AUTOMATED)2023-02-25 17:25:44* Test Item Value Reference Range Interpretation Comme nts POCT GLU (test code = 4000004554) 294 mg/dL 70-110 H Lab Interpretation (test cod e = 84993-4) Abnormal [facility] GLUCOSE (AUTOMATED)2023-02-25 17:25:44* Test Item Value Reference Range Interpretation Comme nts POCT GLU (test code = 9055117191) 294 mg/dL 70-110 H Lab Interpretation (test cod e = 71130-4) Abnormal [facility] GLUCOSE (AUTOMATED)2023-02-25 13:15:42* Test Item Value Reference Range Interpretation Comme nts POCT GLU (test code = 7756774560) 278 mg/dL 70-110 H Lab Interpretation (test cod e = 48381-3) Abnormal [facility] GLUCOSE (AUTOMATED)2023-02-25 13:15:42* Test Item Value Reference Range Interpretation Comme nts POCT GLU (test code = 0834232477) 278 mg/dL 70-110 H Lab Interpretation (test cod e = 06891-8) [facility] (41647) (ALB,T.PRO,BILI T,BU/BC,ALT,AST,ALK PHOS)2023-02-25 10:22:27* Test Item Value Reference Range Interpretation Comme nts TOTAL BILI (test code = 9886027767) 3.6 mg/dL 0.1-1.1 H BILI UNCON (test code = 1832347609) 0.8 mg/dL 0.1-1.1 BILI CONJ (test code = 9875661638) 1.7 mg/dL 0.0-0.3 H T PROTEIN (test code = 1169900344) 5.5 g/dL 6.3-8.2 L ALBUMIN (test code = 6406448825) 2.4 g/dL 3.5-5.0 L ALK PHOS (test code = 0989487605) 165 U/L 34-122 H ALTv (test code = 1742-6) 652 U/L 5-50 H AST(SGOT) (test code = 9206773721) 1877 U/L 13-40 H Lab Interpretation (test cod e = 14991-4) [facility] (04155) (ALB,T.PRO,BILI T,BU/BC,ALT,AST,ALK PHOS)2023-02-25 10:22:27* Test Item Value Reference Range Interpretation Comme nts TOTAL BILI (test code = 5804367940) 3.6 mg/dL 0.1-1.1 H BILI UNCON (test code = 3469257959) 0.8 mg/dL 0.1-1.1 BILI CONJ (test code = 9094752370) 1.7 mg/dL 0.0-0.3 H T PROTEIN (test code = 2346428829) 5.5 g/dL 6.3-8.2 L ALBUMIN (test code = 9012623985) 2.4 g/dL 3.5-5.0 L ALK PHOS (test code = 1677519104) 165 U/L 34-122 H ALTv (test code = 1742-6) 652 U/L 5-50 H AST(SGOT) (test code = 2660073442) 1877 U/L 13-40 H Lab Interpretation (test cod e = 00959-5) Ab[facility] [facility] 09:57:25* Test Item Value Reference Range Interpretation Comme nts PHOSPHORUS (test code = 5139444314) 3.7 mg/dL 2.5-5.0 Lab Interpretation (test cod e = 78881-1) [facility]57[facility]25* Test Item Value Reference Range Interpretation Comme nts PHOSPHORUS (test code = 9028406543) 3.7 mg/dL 2.5-5.0 Lab Interpretation (test cod e = 42892-2) [facility] (NA, K, CL, CO2, GLUCOSE, BUN, CREATININE, CA)2023-02-25 09:57:24* Test Item Value Reference Range Interpretation Comme nts NA (test code = 5956668762) 133 mmol/L 135-145 L K (test code = 6875256745) 4.6 mmol/L 3.5-5.0 CL (test code = 7055677408) 105 mmol/L 98-108 CO2 TOTAL (test code = 8972493046) 17 mmol/L 23-31 L AGAP (test code = 4547380201) 11 2-16 BUN (test code = 3794510428) 29 mg/dL 7-23 H GLUCOSE (test code = 4909082324) 234 mg/dL 70-110 H CREATININE (test code = 3705564905) 1.55 mg/dL 0.60-1.25 H CALCIUM (test code = 0976856110) 6.8 mg/dL 8.6-10.6 L eGFR (test code = 3203736546) 45.8 mL/min/1.73m2 MIKAYLA (test code = MIKAYLA) Association of [...] or abnormalities in imaging tests). Lab Interpretation (test code = 95669-5) [facility]:57:[facility]* Test Item Value Reference Range Interpretation Comme nts MAGNESIUM (test code = 3026881116) 2.4 mg/dL 1.7-2.4 Lab Interpretation (test cod e = 17960-2) [facility] (NA, K, CL, CO2, GLUCOSE, BUN, CREATININE, CA)2023-02-25 09:57:24* Test Item Value Reference Range Interpretation Comme nts NA (test code = 6480341272) 133 mmol/L 135-145 L K (test code = 5441422434) 4.6 mmol/L 3.5-5.0 CL (test code = 0412937647) 105 mmol/L 98-108 CO2 TOTAL (test code = 7265649452) 17 mmol/L 23-31 L AGAP (test code = 4047609679) 11 2-16 BUN (test code = 8223933736) 29 mg/dL 7-23 H GLUCOSE (test code = 8352350533) 234 mg/dL 70-110 H CREATININE (test code = 9273941126) 1.55 mg/dL 0.60-1.25 H CALCIUM (test code = 2143499741) 6.8 mg/dL 8.6-10.6 L eGFR (test code = 4982972801) 45.8 mL/min/1.73m2 MIKAYLA (test code = MIKAYLA) Association of [...] or abnormalities in imaging tests). Lab Interpretation (test code = 44036-0) [facility] 09:57:24* Test Item Value Reference Range Interpretation Comme nts MAGNESIUM (test code = 4270691889) 2.4 mg/dL 1.7-2.4 Lab Interpretation (test cod e = 19219-2) Normal [facility] WITH [id number] 09:56:49* Test Item Value Reference Range Interpretation Comme nts WBC (test code = 6690-2) 23.90 See_Comment H [Automated messa ge] The system which generated this result transmitted reference range: 4.20 - 10.70 10*3/?L. The reference range was not used to interpret this result as normal/abnormal. RBC (test code = 789-8) 2.28 See_Comment L [Automated messa ge] The system which generated this result transmitted reference range: 4.26 - 5.52 10*6/?L. The reference range was not used to interpret this result as normal/abnormal. HGB (test code = 718-7) 7.4 g/dL 12.2-16.4 L HCT (test code = 4544-3) 22.2 % 38.4-49.3 L MCV (test code = 787-2) 97.4 fL 81.7-95.6 H MCH (test code = 785-6) 32.5 pg 26.1-32.7 MCHC (test code = 786-4) 33.3 g/dL 31.2-35.0 RDW-SD (test code = 33816-4) 63.0 fL 38.5-51.6 H RDW-CV (test code = 788-0) 21.4 % 12.1-15.4 H PLT (test code = 777-3) 75 See_Comment L [Automated messa ge] The system which generated this result transmitted reference range: 150 - 328 10*3/?L. The reference range was not used to interpret this result as normal/abnormal. MPV (test code = 88224-9) 14.0 fL 9.8-13.0 H IPF % (test code = 8163478548) 20.7 % 1.2-10.7 H Platelet count measured by fluorescence method. NRBC/100 WBC (test code = 6215130107) 0.4 See_Comment [Automated [employer] ssage] The system which generated this result transmitted reference range: 0.0 - 10.0 /100 WBCs. The reference range was not used to interpret this result as normal/abnormal. NRBC x10^3 (test code = 0133502207) 0.10 See_Comment [Automated [employer]] The system which generated this result transmitted reference range: 10*3/?L. The reference range was not used to interpret this result as normal/abnormal. GRAN MAT (NEUT) % (test code = 770-8) 89.4 % IMM GRAN % (test code = 0610130988) 2.80 % LYMPH % (test code = 736-9) 3.3 % MONO % (test code = 5905-5) 4.1 % EOS % (test code = 713-8) 0.2 % BASO % (test code = 706-2) 0.2 % GRAN MAT x10^3(ANC) (test code = 6361037785) 21.39 10*3/uL 1.99-6.95 H IMM GRAN x10^3 (test code = 7818932162) 0.66 10*3/uL 0.00-0.06 H LYMPH x10^3 (test code = 731-0) 0.79 10*3/uL 1.09-3.23 L MONO x10^3 (test code = 742-7) 0.98 10*3/uL 0.36-1.02 EOS x10^3 (test code = 711-2) 0.04 10*3/uL 0.06-0.53 L BASO x10^3 (test code = 704-7) 0.04 10*3/uL 0.01-0.09 POLYCHROMASIA (test code = 85923-7) 2+ See_Comment [Automated [employer]] The system which generated this result transmitted reference range: 2+. The reference range was not used to interpret this result as normal/abnormal. Lab Interpretation (test code = 58184-0) Abnormal [facility] WITH [id number] 09:56:49* Test Item Value Reference Range Interpretation Comme nts WBC (test code = 6690-2) 23.90 See_Comment H [Automated [employer]] The system which generated this result transmitted reference range: 4.20 - 10.70 10*3/?L. The reference range was not used to interpret this result as normal/abnormal. RBC (test code = 789-8) 2.28 See_Comment L [Automated [employer]] The system which generated this result transmitted reference range: 4.26 - 5.52 10*6/?L. The reference range was not used to interpret this result as normal/abnormal. HGB (test code = 718-7) 7.4 g/dL 12.2-16.4 L HCT (test code = 4544-3) 22.2 % 38.4-49.3 L MCV (test code = 787-2) 97.4 fL 81.7-95.6 H MCH (test code = 785-6) 32.5 pg 26.1-32.7 MCHC (test code = 786-4) 33.3 g/dL 31.2-35.0 RDW-SD (test code = 61235-0) 63.0 fL 38.5-51.6 H RDW-CV (test code = 788-0) 21.4 % 12.1-15.4 H PLT (test code = 777-3) 75 See_Comment L [Automated [employer]] The system which generated this result transmitted reference range: 150 - 328 10*3/?L. The reference range was not used to interpret this result as normal/abnormal. MPV (test code = 84914-5) 14.0 fL 9.8-13.0 H IPF % (test code = 8172206816) 20.7 % 1.2-10.7 H Platelet count measured by fluorescence method. NRBC/100 WBC (test code = 8546901218) 0.4 See_Comment [Automated [employer] ssage] The system which generated this result transmitted reference range: 0.0 - 10.0 /100 WBCs. The reference range was not used to interpret this result as normal/abnormal. NRBC x10^3 (test code = 5681784239) 0.10 See_Comment [Automated messa ge] The system which generated this result transmitted reference range: 10*3/?L. The reference range was not used to interpret this result as normal/abnormal. GRAN MAT (NEUT) % (test code = 770-8) 89.4 % IMM GRAN % (test code = 0933127547) 2.80 % LYMPH % (test code = 736-9) 3.3 % MONO % (test code = 5905-5) 4.1 % EOS % (test code = 713-8) 0.2 % BASO % (test code = 706-2) 0.2 % GRAN MAT x10^3(ANC) (test code = 4798072381) 21.39 10*3/uL 1.99-6.95 H IMM GRAN x10^3 (test code = 3316105522) 0.66 10*3/uL 0.00-0.06 H LYMPH x10^3 (test code = 731-0) 0.79 10*3/uL 1.09-3.23 L MONO x10^3 (test code = 742-7) 0.98 10*3/uL 0.36-1.02 EOS x10^3 (test code = 711-2) 0.04 10*3/uL 0.06-0.53 L BASO x10^3 (test code = 704-7) 0.04 10*3/uL 0.01-0.09 POLYCHROMASIA (test code = 18885-8) 2+ See_Comment [Automated messa ge] The system which generated this result transmitted reference range: 2+. The reference range was not used to interpret this result as normal/abnormal. Lab Interpretation (test code = 04034-5) Abnormal [facility] (for use with Heparin Infusion)2023-02-25 09:42:25* Test Item Value Reference Range Interpretation Comme nts APTT Patient (test code = 3173-2) 54 See_Comment H [Automated messa ge] The system which generated this result transmitted reference range: 26 - 36 Seconds. The reference range was not used to interpret this result as normal/abnormal. Lab Interpretation (test code = 39972-1) Abnormal [facility] (for use with Heparin Infusion)2023-02-25 09:42:25* Test Item Value Reference Range Interpretation Comme [facility] APTT Patient (test code = 3173-2) 54 See_Comment H [Automated messa ge] The system which generated this result transmitted reference range: 26 - 36 Seconds. The reference range was not used to interpret this result as normal/abnormal. Lab Interpretation (test code = 69622-6) Abnormal [facility] GLUCOSE (AUTOMATED)2023-02-25 09:23:13* Test Item Value Reference Range Interpretation Comme [facility] POCT GLU (test code = 6746231533) 273 mg/dL 70-110 H Lab Interpretation (test cod e = 92444-1) Abnormal [facility] GLUCOSE (AUTOMATED)2023-02-25 09:23:13* Test Item Value Reference Range Interpretation Comme [facility] POCT GLU (test code = 1048903480) 273 mg/dL 70-110 H Lab Interpretation (test cod e = 96780-9) [facility] Lactic [id number] 05:17:24* Test Item Value Reference Range Interpretation Comme [facility] PH (test code = 2) 7.36 7.35-7.45 PCO2 (test code = 5279648466) 33 See_Comment L [Automated messa ge] The system which generated this result transmitted reference range: 35 - 45 mmHg. The reference range was not used to interpret this result as normal/abnormal. PO2 (test code = 5171859651) 119 See_Comment H [Automated messa ge] The system which generated this result transmitted reference range: 80 - 100 mmHg. The reference range was not used to interpret this result as normal/abnormal. HCO3 (test code = 1072260681) 18 See_Comment L [Automated messa ge] The system which generated this result transmitted reference range: 22 - 26 mEq/L. The reference range was not used to interpret this result as normal/abnormal. BE (test code = 5498553956) -6.8 See_Comment L [Automated messa ge] The system which generated this result transmitted reference range: -3.0 - 3.0 mEq/L. The reference range was not used to interpret this result as normal/abnormal. THB (test code = 5458454034) 8.8 g/dL 13.5-18.0 L %O2HB (test code = 0165814404) 96.7 % 94.0-99.0 %COHB ART (test code = 7212124780) 1.4 % 0.0-1.5 %METHB ART (test code = 2001024130) 0.1 % 0.4-1.5 L VOL%O2 ART (test code = 9102423549) 12.2 % 15.0-23.0 L NA (test code = 8061426863) 134 mmol/L 135-145 L K+ (test code = 9266811801) 4.4 mmol/L 3.5-5.0 AC CA IONZ (test code = 8449476663) 4.10 mg/dL 4.50-5.30 L GLUCOSE (test code = 8199893638) 224 mg/dL 70-110 H LACTIC ACID (test code = 3822645257) 2.09 mmol/L 0.50-2.20 Lab Interpretation (test code = 88871-8) [facility] + Lactic [id number] 05:17:24* Test Item Value Reference Range Interpretation Comme nts PH (test code = 2) 7.36 7.35-7.45 PCO2 (test code = 7365577574) 33 See_Comment L [Automated messa ge] The system which generated this result transmitted reference range: 35 - 45 mmHg. The reference range was not used to interpret this result as normal/abnormal. PO2 (test code = 8337489645) 119 See_Comment H [Automated messa ge] The system which generated this result transmitted reference range: 80 - 100 mmHg. The reference range was not used to interpret this result as normal/abnormal. HCO3 (test code = 6232933841) 18 See_Comment L [Automated messa ge] The system which generated this result transmitted reference range: 22 - 26 mEq/L. The reference range was not used to interpret this result as normal/abnormal. BE (test code = 5163887183) -6.8 See_Comment L [Automated messa ge] The system which generated this result transmitted reference range: -3.0 - 3.0 mEq/L. The reference range was not used to interpret this result as normal/abnormal. THB (test code = 2219023785) 8.8 g/dL 13.5-18.0 L %O2HB (test code = 3579975952) 96.7 % 94.0-99.0 %COHB ART (test code = 7328999107) 1.4 % 0.0-1.5 %METHB ART (test code = 7733196099) 0.1 % 0.4-1.5 L VOL%O2 ART (test code = 6281367838) 12.2 % 15.0-23.0 L NA (test code = 8091544117) 134 mmol/L 135-145 L K+ (test code = 4365756100) 4.4 mmol/L 3.5-5.0 AC CA IONZ (test code = 5932371795) 4.10 mg/dL 4.50-5.30 L GLUCOSE (test code = 1807894501) 224 mg/dL 70-110 H LACTIC ACID (test code = 8970644648) 2.09 mmol/L 0.50-2.20 Lab Interpretation (test code = 92046-4) Abnormal [facility] GLUCOSE (AUTOMATED)2023-02-25 00:59:06* Test Item Value Reference Range Interpretation Comme nts POCT GLU (test code = 4676517146) 210 mg/dL 70-110 H Lab Interpretation (test cod e = 60294-7) Abnormal [facility] GLUCOSE (AUTOMATED)2023-02-25 00:59:06* Test Item Value Reference Range Interpretation Comme nts POCT GLU (test code = 3016507666) 210 mg/dL 70-110 H Lab Interpretation (test cod e = 86710-1) [facility] [id number] 22:00:29* Test Item Value Reference Range Interpretation Comme nts PHOSPHORUS (test code = 9069417182) 3.1 mg/dL 2.5-5.0 Lab Interpretation (test cod e = 80726-0) [facility] Crypq6027-92-10 22:00:29* Test Item Value Reference Range Interpretation Comme nts PHOSPHORUS (test code = 5485167732) 3.1 mg/dL 2.5-5.0 Lab Interpretation (test cod e = 01906-0) [facility] In[facility]2023-02-24 21:43:27* Test Item Value Reference Range Interpretation Comme [facility] APTT Patient (test code = 3173-2) 52 See_Comment H [Automated messa ge] The system which generated this result transmitted reference range: 26 - 36 Seconds. The reference range was not used to interpret this result as normal/abnormal. Lab Interpretation (test code = 56880-9) [facility] Infusion[facility]2023-02-24 21:43:27* Test Item Value Reference Range Interpretation Comme [facility] APTT Patient (test code = 3173-2) 52 See_Comment H [Automated messa ge] The system which generated this result transmitted reference range: 26 - 36 Seconds. The reference range was not used to interpret this result as normal/abnormal. Lab Interpretation (test code = 19969-9) [facility] + Lactic [id number] 21:29:23* Test Item Value Reference Range Interpretation Comme [facility] PH (test code = 2) 7.39 7.35-7.45 PCO2 (test code = 7635120584) 32 See_Comment L [Automated messa ge] The system which generated this result transmitted reference range: 35 - 45 mmHg. The reference range was not used to interpret this result as normal/abnormal. PO2 (test code = 6711859149) 89 See_Comment [Automated messa ge] The system which generated this result transmitted reference range: 80 - 100 mmHg. The reference range was not used to interpret this result as normal/abnormal. HCO3 (test code = 5588209103) 19 See_Comment L [Automated messa ge] The system which generated this result transmitted reference range: 22 - 26 mEq/L. The reference range was not used to interpret this result as normal/abnormal. BE (test code = 2898273812) -5.3 See_Comment L [Automated messa ge] The system which generated this result transmitted reference range: -3.0 - 3.0 mEq/L. The reference range was not used to interpret this result as normal/abnormal. THB (test code = 8403976778) 9.3 g/dL 13.5-18.0 L %O2HB (test code = 7604520998) 95.1 % 94.0-99.0 %COHB ART (test code = 0663781007) 1.3 % 0.0-1.5 %METHB ART (test code = 1005514239) 0.1 % 0.4-1.5 L VOL%O2 ART (test code = 2300510755) 12.6 % 15.0-23.0 L NA (test code = 8862936031) 135 mmol/L 135-145 K+ (test code = 1352837055) 4.2 mmol/L 3.5-5.0 AC CA IONZ (test code = 4957991458) 4.30 mg/dL 4.50-5.30 L GLUCOSE (test code = 3516889163) 191 mg/dL 70-110 H LACTIC ACID (test code = 0805514865) 1.96 mmol/L 0.50-2.20 Lab Interpretation (test code = 18465-5) [facility] + Lactic [id number] 21:29:23* Test Item Value Reference Range Interpretation Comme nts PH (test code = 2) 7.39 7.35-7.45 PCO2 (test code = 7299249853) 32 See_Comment L [Automated messa ge] The system which generated this result transmitted reference range: 35 - 45 mmHg. The reference range was not used to interpret this result as normal/abnormal. PO2 (test code = 1887730703) 89 See_Comment [Automated messa ge] The system which generated this result transmitted reference range: 80 - 100 mmHg. The reference range was not used to interpret this result as normal/abnormal. HCO3 (test code = 3228842883) 19 See_Comment L [Automated messa ge] The system which generated this result transmitted reference range: 22 - 26 mEq/L. The reference range was not used to interpret this result as normal/abnormal. BE (test code = 0558332058) -5.3 See_Comment L [Automated messa ge] The system which generated this result transmitted reference range: -3.0 - 3.0 mEq/L. The reference range was not used to interpret this result as normal/abnormal. THB (test code = 0675612124) 9.3 g/dL 13.5-18.0 L %O2HB (test code = 9328938965) 95.1 % 94.0-99.0 %COHB ART (test code = 8322326266) 1.3 % 0.0-1.5 %METHB ART (test code = 3571144092) 0.1 % 0.4-1.5 L VOL%O2 ART (test code = 7743107713) 12.6 % 15.0-23.0 L NA (test code = 4374272416) 135 mmol/L 135-145 K+ (test code = 0201125266) 4.2 mmol/L 3.5-5.0 AC CA IONZ (test code = 4213874780) 4.30 mg/dL 4.50-5.30 L GLUCOSE (test code = 3616931782) 191 mg/dL 70-110 H LACTIC ACID (test code = 4403328072) 1.96 mmol/L 0.50-2.20 Lab Interpretation (test code = 02947-8) Abnormal [facility] GLUCOSE (AUTOMATED)2023-02-24 20:38:37* Test Item Value Reference Range Interpretation Comme nts POCT GLU (test code = 3116847255) 189 mg/dL 70-110 H Lab Interpretation (test cod e = 55938-4) Abnormal [facility] GLUCOSE (AUTOMATED)2023-02-24 20:38:37* Test Item Value Reference Range Interpretation Comme nts POCT GLU (test code = 5994668707) 189 mg/dL 70-110 H Lab Interpretation (test cod e = 31757-8) Abnormal [facility] GLUCOSE (AUTOMATED)2023-02-24 17:57:20* Test Item Value Reference Range Interpretation Comme nts POCT GLU (test code = 2890632901) 172 mg/dL 70-110 H Lab Interpretation (test cod e = 96212-9) Abnormal [facility] GLUCOSE (AUTOMATED)2023-02-24 17:57:20* Test Item Value Reference Range Interpretation Comme nts POCT GLU (test code = 0573620310) 172 mg/dL 70-110 H Lab Interpretation (test cod e = 19990-3) [facility]normal [facility] [id number] 14:09:42* Test Item Value Reference Range Interpretation Comme nts SPUTUM CULTURE (test code = 622-1) Scant (< 1+) Respiratory driss: Commensal upper respiratory microorganisms only. Gram stain (test code = 664-3) Few Polymorphonuclear leukocytes MIKAYLA (test code = MIKAYLA) Bacterial pathogens associated with lower respiratory infections were not identified, which include Pseudomonas aeruginosa and Staphylococcus aureus (MRSA or MSSA). [facility] [id number] 14:09:42* Test Item Value Reference Range Interpretation Comme nts SPUTUM CULTURE (test code = 622-1) Scant (< 1+) Respiratory driss: Commensal upper respiratory microorganisms only. Gram stain (test code = 664-3) Few Polymorphonuclear leukocytes MIKAYLA (test code = MIKAYLA) Bacterial pathogens associated with lower respiratory infections were not identified, which include Pseudomonas aeruginosa and Staphylococcus aureus (MRSA or MSSA). [facility] + Lactic Lxfu2286-29-09 13:57:41* Test Item Value Reference Range Interpretation Comme nts PH (test code = 2) 7.41 7.35-7.45 PCO2 (test code = 4003566194) 32 See_Comment L [Automated messa ge] The system which generated this result transmitted reference range: 35 - 45 mmHg. The reference range was not used to interpret this result as normal/abnormal. PO2 (test code = 1988361254) 88 See_Comment [Automated messa ge] The system which generated this result transmitted reference range: 80 - 100 mmHg. The reference range was not used to interpret this result as normal/abnormal. HCO3 (test code = 7474571398) 20 See_Comment L [Automated messa ge] The system which generated this result transmitted reference range: 22 - 26 mEq/L. The reference range was not used to interpret this result as normal/abnormal. BE (test code = 7935212782) -4.1 See_Comment L [Automated messa ge] The system which generated this result transmitted reference range: -3.0 - 3.0 mEq/L. The reference range was not used to interpret this result as normal/abnormal. THB (test code = 0677511118) 6.2 g/dL 13.5-18.0 LL %O2HB (test code = 2386700242) 94.9 % 94.0-99.0 %COHB ART (test code = 5344849683) 1.1 % 0.0-1.5 %METHB ART (test code = 6441994453) 0.2 % 0.4-1.5 L VOL%O2 ART (test code = 1852199754) 8.5 % 15.0-23.0 L NA (test code = 7673046059) 135 mmol/L 135-145 K+ (test code = 7118793072) 3.9 mmol/L 3.5-5.0 AC CA IONZ (test code = 8234086046) 4.40 mg/dL 4.50-5.30 L GLUCOSE (test code = 4710375141) 177 mg/dL 70-110 H LACTIC ACID (test code = 4198263046) 2.29 mmol/L 0.50-2.20 H Lab Interpretation (test code = 65113-8) [facility] + Lactic Hgrq1701-69-66 13:57:41* Test Item Value Reference Range Interpretation Comme nts PH (test code = 2) 7.41 7.35-7.45 PCO2 (test code = 2200984834) 32 See_Comment L [Automated messa ge] The system which generated this result transmitted reference range: 35 - 45 mmHg. The reference range was not used to interpret this result as normal/abnormal. PO2 (test code = 2875677080) 88 See_Comment [Automated messa ge] The system which generated this result transmitted reference range: 80 - 100 mmHg. The reference range was not used to interpret this result as normal/abnormal. HCO3 (test code = 1692340939) 20 See_Comment L [Automated messa ge] The system which generated this result transmitted reference range: 22 - 26 mEq/L. The reference range was not used to interpret this result as normal/abnormal. BE (test code = 0805027663) -4.1 See_Comment L [Automated messa ge] The system which generated this result transmitted reference range: -3.0 - 3.0 mEq/L. The reference range was not used to interpret this result as normal/abnormal. THB (test code = 1395510184) 6.2 g/dL 13.5-18.0 LL %O2HB (test code = 6398961798) 94.9 % 94.0-99.0 %COHB ART (test code = 1500182896) 1.1 % 0.0-1.5 %METHB ART (test code = 9028899466) 0.2 % 0.4-1.5 L VOL%O2 ART (test code = 1857421430) 8.5 % 15.0-23.0 L NA (test code = 2634509061) 135 mmol/L 135-145 K+ (test code = 4132650682) 3.9 mmol/L 3.5-5.0 AC CA IONZ (test code = 1039528257) 4.40 mg/dL 4.50-5.30 L GLUCOSE (test code = 3743170792) 177 mg/dL 70-110 H LACTIC ACID (test code = 5005310488) 2.29 mmol/L 0.50-2.20 H Lab Interpretation (test code = 45171-8) Abnormal [facility] GLUCOSE (AUTOMATED)2023-02-24 09:19:49* Test Item Value Reference Range Interpretation Comme [facility] POCT GLU (test code = 4523210181) 177 mg/dL 70-110 H Lab Interpretation (test cod e = 85223-4) Abnormal [facility] GLUCOSE (AUTOMATED)2023-02-24 09:19:49* Test Item Value Reference Range Interpretation Comme [facility] POCT GLU (test code = 1033347838) 177 mg/dL 70-110 H Lab Interpretation (test cod e = 17176-5) [facility] + Lactic Rrza0639-07-15 07:29:40* Test Item Value Reference Range Interpretation Comme nts PH (test code = 2) 7.38 7.35-7.45 PCO2 (test code = 7093125420) 30 See_Comment L [Automated messa ge] The system which generated this result transmitted reference range: 35 - 45 mmHg. The reference range was not used to interpret this result as normal/abnormal. PO2 (test code = 5496983798) 87 See_Comment [Automated messa ge] The system which generated this result transmitted reference range: 80 - 100 mmHg. The reference range was not used to interpret this result as normal/abnormal. HCO3 (test code = 3816661137) 17 See_Comment L [Automated messa ge] The system which generated this result transmitted reference range: 22 - 26 mEq/L. The reference range was not used to interpret this result as normal/abnormal. BE (test code = 7504216669) -6.8 See_Comment L [Automated messa ge] The system which generated this result transmitted reference range: -3.0 - 3.0 mEq/L. The reference range was not used to interpret this result as normal/abnormal. THB (test code = 3129044347) 9.5 g/dL 13.5-18.0 L %O2HB (test code = 2178163020) 95.5 % 94.0-99.0 %COHB ART (test code = 8912315572) 0.6 % 0.0-1.5 %METHB ART (test code = 1274465730) 0.2 % 0.4-1.5 L VOL%O2 ART (test code = 4274318219) 12.9 % 15.0-23.0 L NA (test code = 0056283236) 135 mmol/L 135-145 K+ (test code = 6711147723) 4.0 mmol/L 3.5-5.0 AC CA IONZ (test code = 6862188212) 4.60 mg/dL 4.50-5.30 GLUCOSE (test code = 3693906595) 169 mg/dL 70-110 H LACTIC ACID (test code = 1998783947) 2.59 mmol/L 0.50-2.20 H Lab Interpretation (test code = 63692-7) [facility] Nomf2721-79-39 07:29:40* Test Item Value Reference Range Interpretation Comme nts PH (test code = 2) 7.38 7.35-7.45 PCO2 (test code = 2682751064) 30 See_Comment L [Automated messa ge] The system which generated this result transmitted reference range: 35 - 45 mmHg. The reference range was not used to interpret this result as normal/abnormal. PO2 (test code = 4139694955) 87 See_Comment [Automated messa ge] The system which generated this result transmitted reference range: 80 - 100 mmHg. The reference range was not used to interpret this result as normal/abnormal. HCO3 (test code = 5967025115) 17 See_Comment L [Automated messa ge] The system which generated this result transmitted reference range: 22 - 26 mEq/L. The reference range was not used to interpret this result as normal/abnormal. BE (test code = 7217577910) -6.8 See_Comment L [Automated messa ge] The system which generated this result transmitted reference range: -3.0 - 3.0 mEq/L. The reference range was not used to interpret this result as normal/abnormal. THB (test code = 2978175921) 9.5 g/dL 13.5-18.0 L %O2HB (test code = 2462695865) 95.5 % 94.0-99.0 %COHB ART (test code = 6170632080) 0.6 % 0.0-1.5 %METHB ART (test code = 6097630305) 0.2 % 0.4-1.5 L VOL%O2 ART (test code = 0183834457) 12.9 % 15.0-23.0 L NA (test code = 7875011790) 135 mmol/L 135-145 K+ (test code = 3052331180) 4.0 mmol/L 3.5-5.0 AC CA IONZ (test code = 2352572662) 4.60 mg/dL 4.50-5.30 GLUCOSE (test code = 1842906307) 169 mg/dL 70-110 H LACTIC ACID (test code = 7591827830) 2.59 mmol/L 0.50-2.20 H Lab Interpretation (test code = 53253-7) Abnormal [facility] GLUCOSE (AUTOMATED)2023-02-24 05:18:26* Test Item Value Reference Range Interpretation Comme nts POCT GLU (test code = 2455604116) 154 mg/dL 70-110 H Lab Interpretation (test cod e = 14844-1) Abnormal [facility] GLUCOSE (AUTOMATED)2023-02-24 05:18:26* Test Item Value Reference Range Interpretation Comme nts POCT GLU (test code = 4603626285) 154 mg/dL 70-110 H Lab Interpretation (test cod e = 30617-5) [facility] Lactic Lelf0730-85-75 01:33:31* Test Item Value Reference Range Interpretation Comme nts PH (test code = 2) 7.38 7.35-7.45 PCO2 (test code = 9649587626) 31 See_Comment L [Automated messa ge] The system which generated this result transmitted reference range: 35 - 45 mmHg. The reference range was not used to interpret this result as normal/abnormal. PO2 (test code = 6282374546) 112 See_Comment H [Automated messa ge] The system which generated this result transmitted reference range: 80 - 100 mmHg. The reference range was not used to interpret this result as normal/abnormal. HCO3 (test code = 6798541400) 18 See_Comment L [Automated messa ge] The system which generated this result transmitted reference range: 22 - 26 mEq/L. The reference range was not used to interpret this result as normal/abnormal. BE (test code = 1802895898) -5.9 See_Comment L [Automated messa ge] The system which generated this result transmitted reference range: -3.0 - 3.0 mEq/L. The reference range was not used to interpret this result as normal/abnormal. THB (test code = 5943695266) 9.1 g/dL 13.5-18.0 L %O2HB (test code = 5044935216) 96.9 % 94.0-99.0 %COHB ART (test code = 3189708801) 0.7 % 0.0-1.5 %METHB ART (test code = 1586875873) 0.1 % 0.4-1.5 L VOL%O2 ART (test code = 8389632638) 12.6 % 15.0-23.0 L NA (test code = 7307764752) 135 mmol/L 135-145 K+ (test code = 9371492163) 3.7 mmol/L 3.5-5.0 AC CA IONZ (test code = 0030116479) 4.60 mg/dL 4.50-5.30 GLUCOSE (test code = 2107409456) 165 mg/dL 70-110 H LACTIC ACID (test code = 6133444826) 2.83 mmol/L 0.50-2.20 H Lab Interpretation (test code = 17541-8) [facility] Lactic Zlow5288-56-18 01:33:31* Test Item Value Reference Range Interpretation Comme nts PH (test code = 2) 7.38 7.35-7.45 PCO2 (test code = 7128206715) 31 See_Comment L [Automated messa ge] The system which generated this result transmitted reference range: 35 - 45 mmHg. The reference range was not used to interpret this result as normal/abnormal. PO2 (test code = 9277798424) 112 See_Comment H [Automated messa ge] The system which generated this result transmitted reference range: 80 - 100 mmHg. The reference range was not used to interpret this result as normal/abnormal. HCO3 (test code = 4187376205) 18 See_Comment L [Automated messa ge] The system which generated this result transmitted reference range: 22 - 26 mEq/L. The reference range was not used to interpret this result as normal/abnormal. BE (test code = 8940213675) -5.9 See_Comment L [Automated messa ge] The system which generated this result transmitted reference range: -3.0 - 3.0 mEq/L. The reference range was not used to interpret this result as normal/abnormal. THB (test code = 7651448546) 9.1 g/dL 13.5-18.0 L %O2HB (test code = 5130937462) 96.9 % 94.0-99.0 %COHB ART (test code = 2579149514) 0.7 % 0.0-1.5 %METHB ART (test code = 1792209851) 0.1 % 0.4-1.5 L VOL%O2 ART (test code = 3957761726) 12.6 % 15.0-23.0 L NA (test code = 0222038189) 135 mmol/L 135-145 K+ (test code = 4070457310) 3.7 mmol/L 3.5-5.0 AC CA IONZ (test code = 9171278265) 4.60 mg/dL 4.50-5.30 GLUCOSE (test code = 7258478463) 165 mg/dL 70-110 H LACTIC ACID (test code = 7274912819) 2.83 mmol/L 0.50-2.20 H Lab Interpretation (test code = 29333-2) [facility] Lactic Ynud6136-90-32 21:20:26* Test Item Value Reference Range Interpretation Comme nts PH (test code = 2) 7.39 7.35-7.45 PCO2 (test code = 1075160971) 28 See_Comment L [Automated messa ge] The system which generated this result transmitted reference range: 35 - 45 mmHg. The reference range was not used to interpret this result as normal/abnormal. PO2 (test code = 2856914787) 101 See_Comment H [Automated messa ge] The system which generated this result transmitted reference range: 80 - 100 mmHg. The reference range was not used to interpret this result as normal/abnormal. HCO3 (test code = 5980436309) 17 See_Comment L [Automated messa ge] The system which generated this result transmitted reference range: 22 - 26 mEq/L. The reference range was not used to interpret this result as normal/abnormal. BE (test code = 1364993011) -6.9 See_Comment L [Automated messa ge] The system which generated this result transmitted reference range: -3.0 - 3.0 mEq/L. The reference range was not used to interpret this result as normal/abnormal. THB (test code = 9571635195) 9.9 g/dL 13.5-18.0 L %O2HB (test code = 7221620660) 96.8 % 94.0-99.0 %COHB ART (test code = 7434362388) 0.9 % 0.0-1.5 %METHB ART (test code = 0895493100) 0.1 % 0.4-1.5 L VOL%O2 ART (test code = 0488327683) 13.6 % 15.0-23.0 L NA (test code = 0173177557) 136 mmol/L 135-145 K+ (test code = 7967829679) 3.7 mmol/L 3.5-5.0 AC CA IONZ (test code = 9357317775) 4.60 mg/dL 4.50-5.30 GLUCOSE (test code = 1822787957) 160 mg/dL 70-110 H LACTIC ACID (test code = 3025847629) 2.36 mmol/L 0.50-2.20 H Lab Interpretation (test code = 14424-4) [facility] Lactic Osvp7931-85-06 21:20:26* Test Item Value Reference Range Interpretation Comme nts PH (test code = 2) 7.39 7.35-7.45 PCO2 (test code = 2515920609) 28 See_Comment L [Automated messa ge] The system which generated this result transmitted reference range: 35 - 45 mmHg. The reference range was not used to interpret this result as normal/abnormal. PO2 (test code = 3932636171) 101 See_Comment H [Automated messa ge] The system which generated this result transmitted reference range: 80 - 100 mmHg. The reference range was not used to interpret this result as normal/abnormal. HCO3 (test code = 7172773607) 17 See_Comment L [Automated messa ge] The system which generated this result transmitted reference range: 22 - 26 mEq/L. The reference range was not used to interpret this result as normal/abnormal. BE (test code = 9073049187) -6.9 See_Comment L [Automated messa ge] The system which generated this result transmitted reference range: -3.0 - 3.0 mEq/L. The reference range was not used to interpret this result as normal/abnormal. THB (test code = 0073857449) 9.9 g/dL 13.5-18.0 L %O2HB (test code = 3468269191) 96.8 % 94.0-99.0 %COHB ART (test code = 1236991780) 0.9 % 0.0-1.5 %METHB ART (test code = 0434126437) 0.1 % 0.4-1.5 L VOL%O2 ART (test code = 7228538619) 13.6 % 15.0-23.0 L NA (test code = 9986471312) 136 mmol/L 135-145 K+ (test code = 6352505159) 3.7 mmol/L 3.5-5.0 AC CA IONZ (test code = 5162099717) 4.60 mg/dL 4.50-5.30 GLUCOSE (test code = 2511680956) 160 mg/dL 70-110 H LACTIC ACID (test code = 9103977890) 2.36 mmol/L 0.50-2.20 H Lab Interpretation (test code = 32394-7) [facility] + Lactic Udye6029-19-25 18:14:49* Test Item Value Reference Range Interpretation Comme nts PH (test code = 2) 7.35 7.35-7.45 PCO2 (test code = 0184348146) 32 See_Comment L [Automated messa ge] The system which generated this result transmitted reference range: 35 - 45 mmHg. The reference range was not used to interpret this result as normal/abnormal. PO2 (test code = 7426453119) 108 See_Comment H [Automated messa ge] The system which generated this result transmitted reference range: 80 - 100 mmHg. The reference range was not used to interpret this result as normal/abnormal. HCO3 (test code = 8914668551) 17 See_Comment L [Automated messa ge] The system which generated this result transmitted reference range: 22 - 26 mEq/L. The reference range was not used to interpret this result as normal/abnormal. BE (test code = 1831761607) -7.9 See_Comment L [Automated messa ge] The system which generated this result transmitted reference range: -3.0 - 3.0 mEq/L. The reference range was not used to interpret this result as normal/abnormal. THB (test code = 1115518218) 8.6 g/dL 13.5-18.0 L %O2HB (test code = 5208632282) 96.6 % 94.0-99.0 %COHB ART (test code = 1860451240) 0.9 % 0.0-1.5 %METHB ART (test code = 3729470643) 0.3 % 0.4-1.5 L VOL%O2 ART (test code = 4755764355) 11.9 % 15.0-23.0 L NA (test code = 4549358377) 136 mmol/L 135-145 K+ (test code = 6117609536) 3.9 mmol/L 3.5-5.0 AC CA IONZ (test code = 3443940527) 4.70 mg/dL 4.50-5.30 GLUCOSE (test code = 4174238289) 153 mg/dL 70-110 H LACTIC ACID (test code = 8598898386) 2.59 mmol/L 0.50-2.20 H Lab Interpretation (test code = 82482-5) [facility] Lactic Gcbm8911-07-19 18:14:49* Test Item Value Reference Range Interpretation Comme nts PH (test code = 2) 7.35 7.35-7.45 PCO2 (test code = 2486344639) 32 See_Comment L [Automated messa ge] The system which generated this result transmitted reference range: 35 - 45 mmHg. The reference range was not used to interpret this result as normal/abnormal. PO2 (test code = 0624490596) 108 See_Comment H [Automated messa ge] The system which generated this result transmitted reference range: 80 - 100 mmHg. The reference range was not used to interpret this result as normal/abnormal. HCO3 (test code = 0227197829) 17 See_Comment L [Automated messa ge] The system which generated this result transmitted reference range: 22 - 26 mEq/L. The reference range was not used to interpret this result as normal/abnormal. BE (test code = 7484093812) -7.9 See_Comment L [Automated messa ge] The system which generated this result transmitted reference range: -3.0 - 3.0 mEq/L. The reference range was not used to interpret this result as normal/abnormal. THB (test code = 8022330581) 8.6 g/dL 13.5-18.0 L %O2HB (test code = 3007374514) 96.6 % 94.0-99.0 %COHB ART (test code = 8707689890) 0.9 % 0.0-1.5 %METHB ART (test code = 5381339422) 0.3 % 0.4-1.5 L VOL%O2 ART (test code = 4881361262) 11.9 % 15.0-23.0 L NA (test code = 4202220176) 136 mmol/L 135-145 K+ (test code = 3530744754) 3.9 mmol/L 3.5-5.0 AC CA IONZ (test code = 3849258870) 4.70 mg/dL 4.50-5.30 GLUCOSE (test code = 4552808819) 153 mg/dL 70-110 H LACTIC ACID (test code = 5962145881) 2.59 mmol/L 0.50-2.20 H Lab Interpretation (test code = 06634-6) [facility] ([facility]), 1 Units 2023-02-23 16:56:48* Test Item Value Reference Range Interpretation Comme nts Cross Match Result (test code = 4409) Compatible ISBT Blood Type Code (test code = 348440) 5100 Unit Blood Type (test code = 4410) O Pos Unit Number (test code = 4411) [id number] Blood Expiration Date & Time (test code = 708931) [id number] Status Information (test code = 4412) Issued Product Identification (test code = 4413) Red Blood Cells Product Code (test code = 4414) [id number] Performed at [address] Free: [phone] No. [id number] [facility] Packed RBC (in units), 1 Units 2023-02-23 16:56:48* Test Item Value Reference Range Interpretation Comme nts Cross Match Result (test code = 4409) Compatible ISBT Blood Type Code (test code = 269393) 5100 Unit Blood Type (test code = 4410) O Pos Unit Number (test code = 4411) [id number] Blood Expiration Date & Time (test code = 473464) [id number] Status Information (test code = 4412) Issued Product Identification (test code = 4413) Red Blood Cells Product Code (test code = 4414) [id number] Performed at [place] [id number] Free: [phone] No. [id number] [facility] JOEEEXW4082-80-96 14:32:51* Test Item Value Reference Range Interpretation Comme nts SPUTUM CULTURE (test code = 622-1) 1+ Respiratory driss: Commensal upper respiratory microorganisms only. Gram stain (test code = 664-3) Occasional (Rare) Mononuclear cells MIKAYLA (test code = MIKAYLA) Bacterial pathogens associated with lower respiratory infections were not identified, which include Pseudomonas aeruginosa and Staphylococcus aureus (MRSA or MSSA). [facility] DHBITWQ3948-44-28 14:32:51* Test Item Value Reference Range Interpretation Comme nts SPUTUM CULTURE (test code = 622-1) 1+ Respiratory driss: Commensal upper respiratory microorganisms only. Gram stain (test code = 664-3) Occasional (Rare) Mononuclear cells MIKAYLA (test code = MIKAYLA) Bacterial pathogens associated with lower respiratory infections were not identified, which include Pseudomonas aeruginosa and Staphylococcus aureus (MRSA or MSSA). [facility] + Lactic Exta8820-42-15 12:37:04* Test Item Value Reference Range Interpretation Comme [facility] PH (test code = 2) 7.38 7.35-7.45 PCO2 (test code = 5980555901) 31 See_Comment L [Automated messa ge] The system which generated this result transmitted reference range: 35 - 45 mmHg. The reference range was not used to interpret this result as normal/abnormal. PO2 (test code = 2010374838) 96 See_Comment [Automated messa ge] The system which generated this result transmitted reference range: 80 - 100 mmHg. The reference range was not used to interpret this result as normal/abnormal. HCO3 (test code = 6787677027) 18 See_Comment L [Automated messa ge] The system which generated this result transmitted reference range: 22 - 26 mEq/L. The reference range was not used to interpret this result as normal/abnormal. BE (test code = 9119128261) -6.6 See_Comment L [Automated messa ge] The system which generated this result transmitted reference range: -3.0 - 3.0 mEq/L. The reference range was not used to interpret this result as normal/abnormal. THB (test code = 3806013987) 6.7 g/dL 13.5-18.0 LL %O2HB (test code = 0918353571) 95.2 % 94.0-99.0 %COHB ART (test code = 2980972810) 1.5 % 0.0-1.5 %METHB ART (test code = 9004887080) 0.4 % 0.4-1.5 VOL%O2 ART (test code = 5407644800) 9.2 % 15.0-23.0 L NA (test code = 5286981503) 137 mmol/L 135-145 K+ (test code = 2019301127) 3.9 mmol/L 3.5-5.0 AC CA IONZ (test code = 8518732312) 4.60 mg/dL 4.50-5.30 GLUCOSE (test code = 5698624384) 144 mg/dL 70-110 H LACTIC ACID (test code = 3034858546) 1.89 mmol/L 0.50-2.20 Lab Interpretation (test code = 30330-3) [facility] + Lactic Ytfs5297-64-02 12:37:04* Test Item Value Reference Range Interpretation Comme nts PH (test code = 2) 7.38 7.35-7.45 PCO2 (test code = 9642435214) 31 See_Comment L [Automated messa ge] The system which generated this result transmitted reference range: 35 - 45 mmHg. The reference range was not used to interpret this result as normal/abnormal. PO2 (test code = 8000207316) 96 See_Comment [Automated messa ge] The system which generated this result transmitted reference range: 80 - 100 mmHg. The reference range was not used to interpret this result as normal/abnormal. HCO3 (test code = 1255610628) 18 See_Comment L [Automated messa ge] The system which generated this result transmitted reference range: 22 - 26 mEq/L. The reference range was not used to interpret this result as normal/abnormal. BE (test code = 5914020005) -6.6 See_Comment L [Automated messa ge] The system which generated this result transmitted reference range: -3.0 - 3.0 mEq/L. The reference range was not used to interpret this result as normal/abnormal. THB (test code = 5590561746) 6.7 g/dL 13.5-18.0 LL %O2HB (test code = 3984034421) 95.2 % 94.0-99.0 %COHB ART (test code = 3530324198) 1.5 % 0.0-1.5 %METHB ART (test code = 8776598869) 0.4 % 0.4-1.5 VOL%O2 ART (test code = 0033681653) 9.2 % 15.0-23.0 L NA (test code = 0653536344) 137 mmol/L 135-145 K+ (test code = 8002147019) 3.9 mmol/L 3.5-5.0 AC CA IONZ (test code = 8286502995) 4.60 mg/dL 4.50-5.30 GLUCOSE (test code = 7110206021) 144 mg/dL 70-110 H LACTIC ACID (test code = 4910428868) 1.89 mmol/L 0.50-2.20 Lab Interpretation (test code = 19201-0) Abnormal [facility] GLUCOSE (AUTOMATED)2023-02-23 08:18:41* Test Item Value Reference Range Interpretation Comme [facility] POCT GLU (test code = 1803217162) 155 mg/dL 70-110 H Lab Interpretation (test cod e = 06200-6) Abnormal [facility] GLUCOSE (AUTOMATED)2023-02-23 08:18:41* Test Item Value Reference Range Interpretation Comme [facility] POCT GLU (test code = 5962942371) 155 mg/dL 70-110 H Lab Interpretation (test cod e = 90595-0) [facility] + Lactic Zgxn9934-58-78 06:52:42* Test Item Value Reference Range Interpretation Comme [facility] PH (test code = 2) 7.30 7.35-7.45 L PCO2 (test code = 6848165350) 37 See_Comment [Automated messa ge] The system which generated this result transmitted reference range: 35 - 45 mmHg. The reference range was not used to interpret this result as normal/abnormal. PO2 (test code = 9000883088) 201 See_Comment H [Automated messa ge] The system which generated this result transmitted reference range: 80 - 100 mmHg. The reference range was not used to interpret this result as normal/abnormal. HCO3 (test code = 0176937627) 17 See_Comment L [Automated messa ge] The system which generated this result transmitted reference range: 22 - 26 mEq/L. The reference range was not used to interpret this result as normal/abnormal. BE (test code = 6325367246) -7.8 See_Comment L [Automated messa ge] The system which generated this result transmitted reference range: -3.0 - 3.0 mEq/L. The reference range was not used to interpret this result as normal/abnormal. THB (test code = 7739242986) 9.8 g/dL 13.5-18.0 L %O2HB (test code = 3827682274) 98.7 % 94.0-99.0 %COHB ART (test code = 9176348975) 0.3 % 0.0-1.5 %METHB ART (test code = 1381887867) 0.2 % 0.4-1.5 L VOL%O2 ART (test code = 2041593071) 14.0 % 15.0-23.0 L NA (test code = 8589412385) 137 mmol/L 135-145 K+ (test code = 3777249793) 4.0 mmol/L 3.5-5.0 AC CA IONZ (test code = 6765200551) 4.70 mg/dL 4.50-5.30 GLUCOSE (test code = 9175467200) 146 mg/dL 70-110 H LACTIC ACID (test code = 4284623252) 2.16 mmol/L 0.50-2.20 Lab Interpretation (test code = 93316-9) [facility] + Lactic Lysn8277-81-10 06:52:42* Test Item Value Reference Range Interpretation Comme nts PH (test code = 2) 7.30 7.35-7.45 L PCO2 (test code = 5423368518) 37 See_Comment [Automated messa ge] The system which generated this result transmitted reference range: 35 - 45 mmHg. The reference range was not used to interpret this result as normal/abnormal. PO2 (test code = 4362935185) 201 See_Comment H [Automated messa ge] The system which generated this result transmitted reference range: 80 - 100 mmHg. The reference range was not used to interpret this result as normal/abnormal. HCO3 (test code = 7146406091) 17 See_Comment L [Automated messa ge] The system which generated this result transmitted reference range: 22 - 26 mEq/L. The reference range was not used to interpret this result as normal/abnormal. BE (test code = 6063638445) -7.8 See_Comment L [Automated messa ge] The system which generated this result transmitted reference range: -3.0 - 3.0 mEq/L. The reference range was not used to interpret this result as normal/abnormal. THB (test code = 5382778834) 9.8 g/dL 13.5-18.0 L %O2HB (test code = 8049738014) 98.7 % 94.0-99.0 %COHB ART (test code = 5174657911) 0.3 % 0.0-1.5 %METHB ART (test code = 4996042327) 0.2 % 0.4-1.5 L VOL%O2 ART (test code = 8484073703) 14.0 % 15.0-23.0 L NA (test code = 0569078117) 137 mmol/L 135-145 K+ (test code = 0498426109) 4.0 mmol/L 3.5-5.0 AC CA IONZ (test code = 3434864736) 4.70 mg/dL 4.50-5.30 GLUCOSE (test code = 9312008825) 146 mg/dL 70-110 H LACTIC ACID (test code = 8121759187) 2.16 mmol/L 0.50-2.20 Lab Interpretation (test code = 77060-1) [facility] - Draw within 30 minutes prior to 3RD dose.2023-02-23 05:26:32* Test Item Value Reference Range Interpretation Comme nts VANCO TROUGH (test code = 6230620399) 5.5 ug/mL 10.0-20.0 L MIKAYLA (test code = MIKAYLA) Toxic Range: ?>20 ug/mL 15-20 ug/mL is recommended for severe infection or when Vancomycin KEYONA is greater than or equal to 2. Lab Interpretation (test code = 04093-1) [facility] Level - Draw within 30 minutes prior to 3RD dose.2023-02-23 05:26:32* Test Item Value Reference Range Interpretation Comme nts VANCO TROUGH (test code = 8473465259) 5.5 ug/mL 10.0-20.0 L MIKAYLA (test code = MIKAYLA) Toxic Range: ?>20 ug/mL 15-20 ug/mL is recommended for severe infection or when Vancomycin KEYONA is greater than or equal to 2. Lab Interpretation (test code = 71340-8) [facility] T[facility] Level - Draw within 30 minutes prior to 3RD dose.2023-02-23 05:26:32* Test Item Value Reference Range Interpretation Comme nts VANCO TROUGH (test code = 1094918358) 5.5 ug/mL 10.0-20.0 L MIKAYLA (test code = MIKAYLA) Toxic Range: ?>20 ug/mL 15-20 ug/mL is recommended for severe infection or when Vancomycin KEYONA is greater than or equal to 2. Lab Interpretation (test code = 83227-6) [facility]normal [facility] T[facility] Level - Draw within 30 minutes prior to 3RD dose.2023-02-23 05:26:32* Test Item Value Reference Range Interpretation Comme nts VANCO TROUGH (test code = 0293374958) 5.5 ug/mL 10.0-20.0 L MIKAYLA (test code = MIKAYLA) Toxic Range: ?>20 ug/mL 15-20 ug/mL is recommended for severe infection or when Vancomycin KEYONA is greater than or equal to 2. Lab Interpretation (test code = 18356-5) Abnormal [facility] GLUCOSE (AUTOMATED)2023-02-23 05:03:30* Test Item Value Reference Range Interpretation Comme nts POCT GLU (test code = 2203001733) 158 mg/dL 70-110 H Lab Interpretation (test cod e = 42159-4) Abnormal [facility] GLUCOSE (AUTOMATED)2023-02-23 05:03:30* Test Item Value Reference Range Interpretation Comme nts POCT GLU (test code = 1827232003) 158 mg/dL 70-110 H Lab Interpretation (test cod e = 01101-8) Abnormal [facility] (for use with Heparin Infusion)2023-02-23 04:20:43* Test Item Value Reference Range Interpretation Comme nts APTT Patient (test code = 3173-2) 53 See_Comment H [Automated messa ge] The system which generated this result transmitted reference range: 26 - 36 Seconds. The reference range was not used to interpret this result as normal/abnormal. Lab Interpretation (test code = 33672-6) Abnormal [facility] (for use with Heparin Infusion)2023-02-23 04:20:43* Test Item Value Reference Range Interpretation Comme nts APTT Patient (test code = 3173-2) 53 See_Comment H [Automated messa ge] The system which generated this result transmitted reference range: 26 - 36 Seconds. The reference range was not used to interpret this result as normal/abnormal. Lab Interpretation (test code = 96981-6) [facility] Iwrw6311-09-79 00:51:06* Test Item Value Reference Range Interpretation Comme nts PH (test code = 2) 7.29 7.35-7.45 L PCO2 (test code = 4107420029) 38 See_Comment [Automated messa ge] The system which generated this result transmitted reference range: 35 - 45 mmHg. The reference range was not used to interpret this result as normal/abnormal. PO2 (test code = 0845205364) 231 See_Comment H [Automated messa ge] The system which generated this result transmitted reference range: 80 - 100 mmHg. The reference range was not used to interpret this result as normal/abnormal. HCO3 (test code = 3048007581) 18 See_Comment L [Automated messa ge] The system which generated this result transmitted reference range: 22 - 26 mEq/L. The reference range was not used to interpret this result as normal/abnormal. BE (test code = 8647544510) -8.0 See_Comment L [Automated messa ge] The system which generated this result transmitted reference range: -3.0 - 3.0 mEq/L. The reference range was not used to interpret this result as normal/abnormal. THB (test code = 4870350590) 12.2 g/dL 13.5-18.0 L %O2HB (test code = 2820415322) 98.3 % 94.0-99.0 %COHB ART (test code = 2455632831) 0.9 % 0.0-1.5 %METHB ART (test code = 4949076069) 0.3 % 0.4-1.5 L VOL%O2 ART (test code = 9287895389) 17.4 % 15.0-23.0 NA (test code = 7646530687) 137 mmol/L 135-145 K+ (test code = 3443389853) 4.5 mmol/L 3.5-5.0 AC CA IONZ (test code = 9170104797) 4.60 mg/dL 4.50-5.30 GLUCOSE (test code = 2813687394) 156 mg/dL 70-110 H LACTIC ACID (test code = 6298968214) 2.56 mmol/L 0.50-2.20 H Lab Interpretation (test code = 51940-3) [facility] Lactic Ubzj9432-11-38 00:51:06* Test Item Value Reference Range Interpretation Comme nts PH (test code = 2) 7.29 7.35-7.45 L PCO2 (test code = 7523487343) 38 See_Comment [Automated messa ge] The system which generated this result transmitted reference range: 35 - 45 mmHg. The reference range was not used to interpret this result as normal/abnormal. PO2 (test code = 0189466668) 231 See_Comment H [Automated messa ge] The system which generated this result transmitted reference range: 80 - 100 mmHg. The reference range was not used to interpret this result as normal/abnormal. HCO3 (test code = 1546695276) 18 See_Comment L [Automated messa ge] The system which generated this result transmitted reference range: 22 - 26 mEq/L. The reference range was not used to interpret this result as normal/abnormal. BE (test code = 1824889093) -8.0 See_Comment L [Automated messa ge] The system which generated this result transmitted reference range: -3.0 - 3.0 mEq/L. The reference range was not used to interpret this result as normal/abnormal. THB (test code = 9927186475) 12.2 g/dL 13.5-18.0 L %O2HB (test code = 8160197470) 98.3 % 94.0-99.0 %COHB ART (test code = 0560715579) 0.9 % 0.0-1.5 %METHB ART (test code = 4953889510) 0.3 % 0.4-1.5 L VOL%O2 ART (test code = 7801458688) 17.4 % 15.0-23.0 NA (test code = 3010201261) 137 mmol/L 135-145 K+ (test code = 0392615834) 4.5 mmol/L 3.5-5.0 AC CA IONZ (test code = 6337751067) 4.60 mg/dL 4.50-5.30 GLUCOSE (test code = 8925067176) 156 mg/dL 70-110 H LACTIC ACID (test code = 4107564951) 2.56 mmol/L 0.50-2.20 H Lab Interpretation (test code = 29127-5) Abnormal [facility] Packed RBC (in units), 1 Units 2023-02-22 22:08:32* Test Item Value Reference Range Interpretation Comme nts Cross Match Result (test code = 4409) Compatible ISBT Blood Type Code (test code = 766319) 5100 Unit Blood Type (test code = 4410) O Pos Unit Number (test code = 4411) [id number] Blood Expiration Date & Time (test code = 236102) [id number] Status Information (test code = 4412) Issued Product Identification (test code = 4413) Red Blood Cells Product Code (test code = 4414) [id number] Performed at [place] [id number] Free: [phone] No. [id number] [facility] Packed RBC (in units), 1 Units 2023-02-22 22:08:32* Test Item Value Reference Range Interpretation Comme nts Cross Match Result (test code = 4409) Compatible ISBT Blood Type Code (test code = 038335) 5100 Unit Blood Type (test code = 4410) O Pos Unit Number (test code = 4411) [id number] Blood Expiration Date & Time (test code = 767301) [id number] Status Information (test code = 4412) Issued Product Identification (test code = 4413) Red Blood Cells Product Code (test code = 4414) [id number] Performed at [address] [address]Gcpg Free: [phone] No. [id number] [facility] Lactic Lwma9367-33-31 20:48:51* Test Item Value Reference Range Interpretation Comme nts PH (test code = 2) 7.23 7.35-7.45 L PCO2 (test code = 7618120399) 39 See_Comment [Automated messa ge] The system which generated this result transmitted reference range: 35 - 45 mmHg. The reference range was not used to interpret this result as normal/abnormal. PO2 (test code = 8638710024) 57 See_Comment L [Automated messa ge] The system which generated this result transmitted reference range: 80 - 100 mmHg. The reference range was not used to interpret this result as normal/abnormal. HCO3 (test code = 5636011109) 16 See_Comment L [Automated messa ge] The system which generated this result transmitted reference range: 22 - 26 mEq/L. The reference range was not used to interpret this result as normal/abnormal. BE (test code = 7970264245) -10.9 See_Comment L [Automated messa ge] The system which generated this result transmitted reference range: -3.0 - 3.0 mEq/L. The reference range was not used to interpret this result as normal/abnormal. THB (test code = 4160264853) 9.3 g/dL 13.5-18.0 L %O2HB (test code = 6647927629) 80.1 % 94.0-99.0 L %COHB ART (test code = 4160176708) 0.6 % 0.0-1.5 %METHB ART (test code = 4988058102) 0.3 % 0.4-1.5 L VOL%O2 ART (test code = 9535996764) 10.5 % 15.0-23.0 L NA (test code = 2237859247) 138 mmol/L 135-145 K+ (test code = 1274438018) 5.4 mmol/L 3.5-5.0 H AC CA IONZ (test code = 8613215899) 4.50 mg/dL 4.50-5.30 GLUCOSE (test code = 4869862921) 172 mg/dL 70-110 H LACTIC ACID (test code = 2928289229) 4.47 mmol/L 0.50-2.20 H Lab Interpretation (test code = 81284-9) [facility] Lactic Upvg7797-51-11 20:48:51* Test Item Value Reference Range Interpretation Comme nts PH (test code = 2) 7.23 7.35-7.45 L PCO2 (test code = 0585238161) 39 See_Comment [Automated messa ge] The system which generated this result transmitted reference range: 35 - 45 mmHg. The reference range was not used to interpret this result as normal/abnormal. PO2 (test code = 9457679360) 57 See_Comment L [Automated messa ge] The system which generated this result transmitted reference range: 80 - 100 mmHg. The reference range was not used to interpret this result as normal/abnormal. HCO3 (test code = 0781435772) 16 See_Comment L [Automated messa ge] The system which generated this result transmitted reference range: 22 - 26 mEq/L. The reference range was not used to interpret this result as normal/abnormal. BE (test code = 5419637029) -10.9 See_Comment L [Automated messa ge] The system which generated this result transmitted reference range: -3.0 - 3.0 mEq/L. The reference range was not used to interpret this result as normal/abnormal. THB (test code = 3366609451) 9.3 g/dL 13.5-18.0 L %O2HB (test code = 4206621991) 80.1 % 94.0-99.0 L %COHB ART (test code = 4572127579) 0.6 % 0.0-1.5 %METHB ART (test code = 1213908770) 0.3 % 0.4-1.5 L VOL%O2 ART (test code = 5592341663) 10.5 % 15.0-23.0 L NA (test code = 2308601456) 138 mmol/L 135-145 K+ (test code = 3889379422) 5.4 mmol/L 3.5-5.0 H AC CA IONZ (test code = 9284012771) 4.50 mg/dL 4.50-5.30 GLUCOSE (test code = 9338884761) 172 mg/dL 70-110 H LACTIC ACID (test code = 7263593095) 4.47 mmol/L 0.50-2.20 H Lab Interpretation (test code = 07334-5) [facility] Lactic Crst8596-08-01 19:10:10* Test Item Value Reference Range Interpretation Comme nts PH (test code = 2) 7.35 7.35-7.45 PCO2 (test code = 8423354485) 30 See_Comment L [Automated messa ge] The system which generated this result transmitted reference range: 35 - 45 mmHg. The reference range was not used to interpret this result as normal/abnormal. PO2 (test code = 1424793746) 168 See_Comment H [Automated messa ge] The system which generated this result transmitted reference range: 80 - 100 mmHg. The reference range was not used to interpret this result as normal/abnormal. HCO3 (test code = 8631756800) 16 See_Comment L [Automated messa ge] The system which generated this result transmitted reference range: 22 - 26 mEq/L. The reference range was not used to interpret this result as normal/abnormal. BE (test code = 5179271892) -8.3 See_Comment L [Automated messa ge] The system which generated this result transmitted reference range: -3.0 - 3.0 mEq/L. The reference range was not used to interpret this result as normal/abnormal. THB (test code = 8343929446) 10.5 g/dL 13.5-18.0 L %O2HB (test code = 6130135984) 98.5 % 94.0-99.0 %COHB ART (test code = 7335976184) 0.5 % 0.0-1.5 %METHB ART (test code = 0082320813) 0.1 % 0.4-1.5 L VOL%O2 ART (test code = 4073063411) 14.9 % 15.0-23.0 L NA (test code = 6318304582) 138 mmol/L 135-145 K+ (test code = 5257752093) 4.8 mmol/L 3.5-5.0 AC CA IONZ (test code = 7633060266) 4.30 mg/dL 4.50-5.30 L GLUCOSE (test code = 9682605750) 161 mg/dL 70-110 H LACTIC ACID (test code = 7100261781) 2.44 mmol/L 0.50-2.20 H Lab Interpretation (test code = 88327-7) [facility] Lactic Lxqk1883-26-71 19:10:10* Test Item Value Reference Range Interpretation Comme nts PH (test code = 2) 7.35 7.35-7.45 PCO2 (test code = 9180839712) 30 See_Comment L [Automated messa ge] The system which generated this result transmitted reference range: 35 - 45 mmHg. The reference range was not used to interpret this result as normal/abnormal. PO2 (test code = 2732942182) 168 See_Comment H [Automated messa ge] The system which generated this result transmitted reference range: 80 - 100 mmHg. The reference range was not used to interpret this result as normal/abnormal. HCO3 (test code = 6636430948) 16 See_Comment L [Automated messa ge] The system which generated this result transmitted reference range: 22 - 26 mEq/L. The reference range was not used to interpret this result as normal/abnormal. BE (test code = 9735518888) -8.3 See_Comment L [Automated messa ge] The system which generated this result transmitted reference range: -3.0 - 3.0 mEq/L. The reference range was not used to interpret this result as normal/abnormal. THB (test code = 2902233769) 10.5 g/dL 13.5-18.0 L %O2HB (test code = 3274041734) 98.5 % 94.0-99.0 %COHB ART (test code = 5410402127) 0.5 % 0.0-1.5 %METHB ART (test code = 0206861570) 0.1 % 0.4-1.5 L VOL%O2 ART (test code = 5124010457) 14.9 % 15.0-23.0 L NA (test code = 5120820888) 138 mmol/L 135-145 K+ (test code = 9519551839) 4.8 mmol/L 3.5-5.0 AC CA IONZ (test code = 4559170034) 4.30 mg/dL 4.50-5.30 L GLUCOSE (test code = 1512455287) 161 mg/dL 70-110 H LACTIC ACID (test code = 1532684591) 2.44 mmol/L 0.50-2.20 H Lab Interpretation (test code = 24817-7) Abnormal [facility] GLUCOSE (AUTOMATED)2023-02-22 16:56:42* Test Item Value Reference Range Interpretation Comme nts POCT GLU (test code = 9311222807) 128 mg/dL 70-110 H Lab Interpretation (test cod e = 56914-2) [facility] 16:56:42* Test Item Value Reference Range Interpretation Comme [facility] POCT GLU (test code = 4757325145) 128 mg/dL 70-110 H Lab Interpretation (test cod e = 86560-8) [facility] Lactic Diuu4938-62-27 13:12:37* Test Item Value Reference Range Interpretation Comme [facility] PH (test code = 2) 7.36 7.35-7.45 PCO2 (test code = 5035757163) 30 See_Comment L [Automated messa ge] The system which generated this result transmitted reference range: 35 - 45 mmHg. The reference range was not used to interpret this result as normal/abnormal. PO2 (test code = 6714765459) 154 See_Comment H [Automated messa ge] The system which generated this result transmitted reference range: 80 - 100 mmHg. The reference range was not used to interpret this result as normal/abnormal. HCO3 (test code = 5104081561) 16 See_Comment L [Automated messa ge] The system which generated this result transmitted reference range: 22 - 26 mEq/L. The reference range was not used to interpret this result as normal/abnormal. BE (test code = 9147613402) -8.0 See_Comment L [Automated messa ge] The system which generated this result transmitted reference range: -3.0 - 3.0 mEq/L. The reference range was not used to interpret this result as normal/abnormal. THB (test code = 8588445013) 8.2 g/dL 13.5-18.0 LL %O2HB (test code = 5764646267) 97.5 % 94.0-99.0 %COHB ART (test code = 3147279100) 1.3 % 0.0-1.5 %METHB ART (test code = 4095753238) 0.3 % 0.4-1.5 L VOL%O2 ART (test code = 8099508750) 11.6 % 15.0-23.0 L NA (test code = 7039885007) 135 mmol/L 135-145 K+ (test code = 7747780945) 4.3 mmol/L 3.5-5.0 AC CA IONZ (test code = 4449037636) 4.50 mg/dL 4.50-5.30 GLUCOSE (test code = 9507996890) 202 mg/dL 70-110 H LACTIC ACID (test code = 8441694308) 3.03 mmol/L 0.50-2.20 H Lab Interpretation (test code = 64352-3) [facility] + Lactic Xgxn7202-30-32 13:12:37* Test Item Value Reference Range Interpretation Comme nts PH (test code = 2) 7.36 7.35-7.45 PCO2 (test code = 5881768553) 30 See_Comment L [Automated messa ge] The system which generated this result transmitted reference range: 35 - 45 mmHg. The reference range was not used to interpret this result as normal/abnormal. PO2 (test code = 5012161544) 154 See_Comment H [Automated messa ge] The system which generated this result transmitted reference range: 80 - 100 mmHg. The reference range was not used to interpret this result as normal/abnormal. HCO3 (test code = 8606916501) 16 See_Comment L [Automated messa ge] The system which generated this result transmitted reference range: 22 - 26 mEq/L. The reference range was not used to interpret this result as normal/abnormal. BE (test code = 7984074067) -8.0 See_Comment L [Automated messa ge] The system which generated this result transmitted reference range: -3.0 - 3.0 mEq/L. The reference range was not used to interpret this result as normal/abnormal. THB (test code = 6863213361) 8.2 g/dL 13.5-18.0 LL %O2HB (test code = 1472955409) 97.5 % 94.0-99.0 %COHB ART (test code = 2415910205) 1.3 % 0.0-1.5 %METHB ART (test code = 8470339322) 0.3 % 0.4-1.5 L VOL%O2 ART (test code = 9759097443) 11.6 % 15.0-23.0 L NA (test code = 9160633334) 135 mmol/L 135-145 K+ (test code = 3732282819) 4.3 mmol/L 3.5-5.0 AC CA IONZ (test code = 1207768802) 4.50 mg/dL 4.50-5.30 GLUCOSE (test code = 0141648101) 202 mg/dL 70-110 H LACTIC ACID (test code = 6770150481) 3.03 mmol/L 0.50-2.20 H Lab Interpretation (test code = 94438-5) [facility] Lactic Okff7021-08-94 10:36:28* Test Item Value Reference Range Interpretation Comme nts PH (test code = 2) 7.32 7.35-7.45 L PCO2 (test code = 7205328290) 30 See_Comment L [Automated messa ge] The system which generated this result transmitted reference range: 35 - 45 mmHg. The reference range was not used to interpret this result as normal/abnormal. PO2 (test code = 2635385518) 122 See_Comment H [Automated messa ge] The system which generated this result transmitted reference range: 80 - 100 mmHg. The reference range was not used to interpret this result as normal/abnormal. HCO3 (test code = 3469228482) 15 See_Comment L [Automated messa ge] The system which generated this result transmitted reference range: 22 - 26 mEq/L. The reference range was not used to interpret this result as normal/abnormal. BE (test code = 0317271066) -9.9 See_Comment L [Automated messa ge] The system which generated this result transmitted reference range: -3.0 - 3.0 mEq/L. The reference range was not used to interpret this result as normal/abnormal. THB (test code = 6751418247) 8.7 g/dL 13.5-18.0 L %O2HB (test code = 1002278371) 97.3 % 94.0-99.0 %COHB ART (test code = 1407408418) 0.8 % 0.0-1.5 %METHB ART (test code = 4752707515) 0.2 % 0.4-1.5 L VOL%O2 ART (test code = 0427349864) 12.1 % 15.0-23.0 L NA (test code = 5652167222) 137 mmol/L 135-145 K+ (test code = 3022407237) 5.0 mmol/L 3.5-5.0 AC CA IONZ (test code = 0445555996) 4.50 mg/dL 4.50-5.30 GLUCOSE (test code = 4233416358) 141 mg/dL 70-110 H LACTIC ACID (test code = 6701269461) 4.51 mmol/L 0.50-2.20 H Lab Interpretation (test code = 13114-0) [facility] Lactic Pgli8804-57-69 10:36:28* Test Item Value Reference Range Interpretation Comme nts PH (test code = 2) 7.32 7.35-7.45 L PCO2 (test code = 9930429459) 30 See_Comment L [Automated messa ge] The system which generated this result transmitted reference range: 35 - 45 mmHg. The reference range was not used to interpret this result as normal/abnormal. PO2 (test code = 9656728346) 122 See_Comment H [Automated messa ge] The system which generated this result transmitted reference range: 80 - 100 mmHg. The reference range was not used to interpret this result as normal/abnormal. HCO3 (test code = 2388414933) 15 See_Comment L [Automated messa ge] The system which generated this result transmitted reference range: 22 - 26 mEq/L. The reference range was not used to interpret this result as normal/abnormal. BE (test code = 0204833955) -9.9 See_Comment L [Automated messa ge] The system which generated this result transmitted reference range: -3.0 - 3.0 mEq/L. The reference range was not used to interpret this result as normal/abnormal. THB (test code = 1160551207) 8.7 g/dL 13.5-18.0 L %O2HB (test code = 1281316609) 97.3 % 94.0-99.0 %COHB ART (test code = 3965007415) 0.8 % 0.0-1.5 %METHB ART (test code = 8455147274) 0.2 % 0.4-1.5 L VOL%O2 ART (test code = 7341868775) 12.1 % 15.0-23.0 L NA (test code = 0761061324) 137 mmol/L 135-145 K+ (test code = 9454798750) 5.0 mmol/L 3.5-5.0 AC CA IONZ (test code = 8705766415) 4.50 mg/dL 4.50-5.30 GLUCOSE (test code = 1198694060) 141 mg/dL 70-110 H LACTIC ACID (test code = 1798955096) 4.51 mmol/L 0.50-2.20 H Lab Interpretation (test code = 03756-7) [facility] Lactic Zhge1065-56-36 08:18:47* Test Item Value Reference Range Interpretation Comme nts PH (test code = 2) 7.22 7.35-7.45 L PCO2 (test code = 8223741362) 33 See_Comment L [Automated messa ge] The system which generated this result transmitted reference range: 35 - 45 mmHg. The reference range was not used to interpret this result as normal/abnormal. PO2 (test code = 7522658452) 153 See_Comment H [Automated messa ge] The system which generated this result transmitted reference range: 80 - 100 mmHg. The reference range was not used to interpret this result as normal/abnormal. HCO3 (test code = 7466078024) 13 See_Comment L [Automated messa ge] The system which generated this result transmitted reference range: 22 - 26 mEq/L. The reference range was not used to interpret this result as normal/abnormal. BE (test code = 2339914708) -13.2 See_Comment L [Automated messa ge] The system which generated this result transmitted reference range: -3.0 - 3.0 mEq/L. The reference range was not used to interpret this result as normal/abnormal. THB (test code = 3385268759) 8.8 g/dL 13.5-18.0 L %O2HB (test code = 2859418578) 97.8 % 94.0-99.0 %COHB ART (test code = 4504630267) 0.6 % 0.0-1.5 %METHB ART (test code = 1247906055) 0.3 % 0.4-1.5 L VOL%O2 ART (test code = 8298663289) 12.4 % 15.0-23.0 L NA (test code = 1714730930) 136 mmol/L 135-145 K+ (test code = 0856148912) 5.3 mmol/L 3.5-5.0 H AC CA IONZ (test code = 8698997041) 4.50 mg/dL 4.50-5.30 GLUCOSE (test code = 3958896605) 137 mg/dL 70-110 H LACTIC ACID (test code = 3280975230) 7.92 mmol/L 0.50-2.20 H Lab Interpretation (test code = 03123-4) [facility] Lactic Gauk9604-90-27 08:18:47* Test Item Value Reference Range Interpretation Comme nts PH (test code = 2) 7.22 7.35-7.45 L PCO2 (test code = 8409501289) 33 See_Comment L [Automated messa ge] The system which generated this result transmitted reference range: 35 - 45 mmHg. The reference range was not used to interpret this result as normal/abnormal. PO2 (test code = 8926019431) 153 See_Comment H [Automated messa ge] The system which generated this result transmitted reference range: 80 - 100 mmHg. The reference range was not used to interpret this result as normal/abnormal. HCO3 (test code = 7947526675) 13 See_Comment L [Automated messa ge] The system which generated this result transmitted reference range: 22 - 26 mEq/L. The reference range was not used to interpret this result as normal/abnormal. BE (test code = 3335601989) -13.2 See_Comment L [Automated messa ge] The system which generated this result transmitted reference range: -3.0 - 3.0 mEq/L. The reference range was not used to interpret this result as normal/abnormal. THB (test code = 4887807086) 8.8 g/dL 13.5-18.0 L %O2HB (test code = 7449395304) 97.8 % 94.0-99.0 %COHB ART (test code = 3680430366) 0.6 % 0.0-1.5 %METHB ART (test code = 3142101487) 0.3 % 0.4-1.5 L VOL%O2 ART (test code = 8569178162) 12.4 % 15.0-23.0 L NA (test code = 7357997216) 136 mmol/L 135-145 K+ (test code = 9955843478) 5.3 mmol/L 3.5-5.0 H AC CA IONZ (test code = 1153444974) 4.50 mg/dL 4.50-5.30 GLUCOSE (test code = 9290523222) 137 mg/dL 70-110 H LACTIC ACID (test code = 9449253082) 7.92 mmol/L 0.50-2.20 H Lab Interpretation (test code = 43965-2) [facility] Lactic Kcty7979-93-39 06:31:07* Test Item Value Reference Range Interpretation Comme nts PH (test code = 2) 7.23 7.35-7.45 L PCO2 (test code = 3995596258) 32 See_Comment L [Automated messa ge] The system which generated this result transmitted reference range: 35 - 45 mmHg. The reference range was not used to interpret this result as normal/abnormal. PO2 (test code = 0527262553) 112 See_Comment H [Automated messa ge] The system which generated this result transmitted reference range: 80 - 100 mmHg. The reference range was not used to interpret this result as normal/abnormal. HCO3 (test code = 5306111013) 13 See_Comment L [Automated messa ge] The system which generated this result transmitted reference range: 22 - 26 mEq/L. The reference range was not used to interpret this result as normal/abnormal. BE (test code = 4328692038) -13.3 See_Comment L [Automated messa ge] The system which generated this result transmitted reference range: -3.0 - 3.0 mEq/L. The reference range was not used to interpret this result as normal/abnormal. THB (test code = 2033027548) 8.8 g/dL 13.5-18.0 L %O2HB (test code = 0781889650) 96.1 % 94.0-99.0 %COHB ART (test code = 3431211790) 0.7 % 0.0-1.5 %METHB ART (test code = 1186573485) 0.2 % 0.4-1.5 L VOL%O2 ART (test code = 6184637160) 12.1 % 15.0-23.0 L NA (test code = 7525862559) 137 mmol/L 135-145 K+ (test code = 7099559815) 5.2 mmol/L 3.5-5.0 H AC CA IONZ (test code = 2638701643) 4.50 mg/dL 4.50-5.30 GLUCOSE (test code = 9790442116) 70 mg/dL 70-110 LACTIC ACID (test code = 0173283996) 7.57 mmol/L 0.50-2.20 H Lab Interpretation (test code = 09631-4) [facility] [id number] 06:31:07* Test Item Value Reference Range Interpretation Comme nts PH (test code = 2) 7.23 7.35-7.45 L PCO2 (test code = 3988271676) 32 See_Comment L [Automated messa ge] The system which generated this result transmitted reference range: 35 - 45 mmHg. The reference range was not used to interpret this result as normal/abnormal. PO2 (test code = 5678683739) 112 See_Comment H [Automated messa ge] The system which generated this result transmitted reference range: 80 - 100 mmHg. The reference range was not used to interpret this result as normal/abnormal. HCO3 (test code = 4309815414) 13 See_Comment L [Automated messa ge] The system which generated this result transmitted reference range: 22 - 26 mEq/L. The reference range was not used to interpret this result as normal/abnormal. BE (test code = 6851387051) -13.3 See_Comment L [Automated messa ge] The system which generated this result transmitted reference range: -3.0 - 3.0 mEq/L. The reference range was not used to interpret this result as normal/abnormal. THB (test code = 6522864539) 8.8 g/dL 13.5-18.0 L %O2HB (test code = 1736288276) 96.1 % 94.0-99.0 %COHB ART (test code = 2839609431) 0.7 % 0.0-1.5 %METHB ART (test code = 0569910900) 0.2 % 0.4-1.5 L VOL%O2 ART (test code = 8529764953) 12.1 % 15.0-23.0 L NA (test code = 7134163452) 137 mmol/L 135-145 K+ (test code = 5526145112) 5.2 mmol/L 3.5-5.0 H AC CA IONZ (test code = 2716730844) 4.50 mg/dL 4.50-5.30 GLUCOSE (test code = 4620311854) 70 mg/dL 70-110 LACTIC ACID (test code = 4887847714) 7.57 mmol/L 0.50-2.20 H Lab Interpretation (test code = 96146-6) Abnormal [facility] METABOLIC PANEL (NA, K, CL, CO2, GLUCOSE, BUN, CREATININE, CA)2023-02-22 05:14:48* Test Item Value Reference Range Interpretation Comme nts NA (test code = 8270764786) 140 mmol/L 135-145 K (test code = 3764426847) 5.2 mmol/L 3.5-5.0 H CL (test code = 0145688719) 106 mmol/L 98-108 CO2 TOTAL (test code = 5091764782) 15 mmol/L 23-31 L AGAP (test code = 3780538405) 19 2-16 H BUN (test code = 7215516048) 73 mg/dL 7-23 H GLUCOSE (test code = 8772874973) 91 mg/dL 70-110 CREATININE (test code = 4281880594) 3.13 mg/dL 0.60-1.25 H CALCIUM (test code = 7849990041) 7.9 mg/dL 8.6-10.6 L eGFR (test code = 4492104235) 20.4 mL/min/1.73m2 MIKAYLA (test code = MIKAYLA) Association of [...] or abnormalities in imaging tests). Lab Interpretation (test code = 97229-0) Abnormal [facility] METABOLIC PANEL (NA, K, CL, CO2, GLUCOSE, BUN, CREATININE, CA)2023-02-22 05:14:48* Test Item Value Reference Range Interpretation Comme nts NA (test code = 7681224371) 140 mmol/L 135-145 K (test code = 5488264771) 5.2 mmol/L 3.5-5.0 H CL (test code = 1768878878) 106 mmol/L 98-108 CO2 TOTAL (test code = 7860172597) 15 mmol/L 23-31 L AGAP (test code = 0927996986) 19 2-16 H BUN (test code = 6430270987) 73 mg/dL 7-23 H GLUCOSE (test code = 9623506127) 91 mg/dL 70-110 CREATININE (test code = 5694266272) 3.13 mg/dL 0.60-1.25 H CALCIUM (test code = 5529733642) 7.9 mg/dL 8.6-10.6 L eGFR (test code = 3318499034) 20.4 mL/min/1.73m2 MIKAYLA (test code = MIKAYLA) Association of [...] or abnormalities in imaging tests). Lab Interpretation (test code = 12433-8) [facility] L[facility] [id number] 04:52:35* Test Item Value Reference Range Interpretation Comme nts PH (test code = 2) 7.18 7.35-7.45 LL PCO2 (test code = 9595150849) 37 See_Comment [Automated [employer]] The system which generated this result transmitted reference range: 35 - 45 mmHg. The reference range was not used to interpret this result as normal/abnormal. PO2 (test code = 0744371955) 231 See_Comment H [Automated messa [employer]] The system which generated this result transmitted reference range: 80 - 100 mmHg. The reference range was not used to interpret this result as normal/abnormal. HCO3 (test code = 3321284744) 14 See_Comment L [Automated [employer]] The system which generated this result transmitted reference range: 22 - 26 mEq/L. The reference range was not used to interpret this result as normal/abnormal. BE (test code = 7880819466) -13.9 See_Comment L [Automated messa ge] The system which generated this result transmitted reference range: -3.0 - 3.0 mEq/L. The reference range was not used to interpret this result as normal/abnormal. THB (test code = 1568766854) 8.6 g/dL 13.5-18.0 L %O2HB (test code = 7519030535) 98.6 % 94.0-99.0 %COHB ART (test code = 4306178306) 0.7 % 0.0-1.5 %METHB ART (test code = 2151770220) 0.2 % 0.4-1.5 L VOL%O2 ART (test code = 4809002907) 12.5 % 15.0-23.0 L NA (test code = 0565169906) 138 mmol/L 135-145 K+ (test code = 0176456669) 5.1 mmol/L 3.5-5.0 H AC CA IONZ (test code = 6029834771) 4.60 mg/dL 4.50-5.30 GLUCOSE (test code = 4348311526) 83 mg/dL 70-110 LACTIC ACID (test code = 0944999728) 6.93 mmol/L 0.50-2.20 H Lab Interpretation (test code = 28060-7) [facility] Lactic [id number] 04:52:35* Test Item Value Reference Range Interpretation Comme nts PH (test code = 2) 7.18 7.35-7.45 LL PCO2 (test code = 9962868118) 37 See_Comment [Automated messa ge] The system which generated this result transmitted reference range: 35 - 45 mmHg. The reference range was not used to interpret this result as normal/abnormal. PO2 (test code = 6679539342) 231 See_Comment H [Automated messa ge] The system which generated this result transmitted reference range: 80 - 100 mmHg. The reference range was not used to interpret this result as normal/abnormal. HCO3 (test code = 2765663545) 14 See_Comment L [Automated messa ge] The system which generated this result transmitted reference range: 22 - 26 mEq/L. The reference range was not used to interpret this result as normal/abnormal. BE (test code = 0297814656) -13.9 See_Comment L [Automated messa ge] The system which generated this result transmitted reference range: -3.0 - 3.0 mEq/L. The reference range was not used to interpret this result as normal/abnormal. THB (test code = 6893760650) 8.6 g/dL 13.5-18.0 L %O2HB (test code = 5410115473) 98.6 % 94.0-99.0 %COHB ART (test code = 6297196362) 0.7 % 0.0-1.5 %METHB ART (test code = 6343768696) 0.2 % 0.4-1.5 L VOL%O2 ART (test code = 4161004847) 12.5 % 15.0-23.0 L NA (test code = 3501425316) 138 mmol/L 135-145 K+ (test code = 0882123347) 5.1 mmol/L 3.5-5.0 H AC CA IONZ (test code = 5927636766) 4.60 mg/dL 4.50-5.30 GLUCOSE (test code = 3573681059) 83 mg/dL 70-110 LACTIC ACID (test code = 2419036848) 6.93 mmol/L 0.50-2.20 H Lab Interpretation (test code = 30199-0) Abnormal [facility] GLUCOSE (AUTOMATED)2023-02-22 03:37:43* Test Item Value Reference Range Interpretation Comme nts POCT GLU (test code = 1355845207) 112 mg/dL 70-110 H Lab Interpretation (test cod e = 42520-3) Abnormal [facility] GLUCOSE (AUTOMATED)2023-02-22 03:37:43* Test Item Value Reference Range Interpretation Comme nts POCT GLU (test code = 6579706624) 112 mg/dL 70-110 H Lab Interpretation (test cod e = 26571-0) [facility] Lactic Clgk4501-67-75 03:14:44* Test Item Value Reference Range Interpretation Comme nts PH (test code = 2) 7.29 7.35-7.45 L PCO2 (test code = 5824849667) 27 See_Comment L [Automated messa ge] The system which generated this result transmitted reference range: 35 - 45 mmHg. The reference range was not used to interpret this result as normal/abnormal. PO2 (test code = 9160772477) 151 See_Comment H [Automated messa ge] The system which generated this result transmitted reference range: 80 - 100 mmHg. The reference range was not used to interpret this result as normal/abnormal. HCO3 (test code = 2738445919) 13 See_Comment L [Automated messa ge] The system which generated this result transmitted reference range: 22 - 26 mEq/L. The reference range was not used to interpret this result as normal/abnormal. BE (test code = 1287219640) -12.7 See_Comment L [Automated messa ge] The system which generated this result transmitted reference range: -3.0 - 3.0 mEq/L. The reference range was not used to interpret this result as normal/abnormal. THB (test code = 0853116951) 8.1 g/dL 13.5-18.0 LL %O2HB (test code = 8903736256) 97.6 % 94.0-99.0 %COHB ART (test code = 0064716731) 0.8 % 0.0-1.5 %METHB ART (test code = 1910312098) 0.3 % 0.4-1.5 L VOL%O2 ART (test code = 0635689557) 11.5 % 15.0-23.0 L NA (test code = 0220394814) 136 mmol/L 135-145 K+ (test code = 6591818877) 5.1 mmol/L 3.5-5.0 H AC CA IONZ (test code = 1514154074) 4.70 mg/dL 4.50-5.30 GLUCOSE (test code = 7445505546) 78 mg/dL 70-110 LACTIC ACID (test code = 5015720966) 7.35 mmol/L 0.50-2.20 H Lab Interpretation (test code = 41063-0) [facility] Lactic Zauj1055-08-62 03:14:44* Test Item Value Reference Range Interpretation Comme nts PH (test code = 2) 7.29 7.35-7.45 L PCO2 (test code = 7467074700) 27 See_Comment L [Automated messa ge] The system which generated this result transmitted reference range: 35 - 45 mmHg. The reference range was not used to interpret this result as normal/abnormal. PO2 (test code = 0177193786) 151 See_Comment H [Automated messa ge] The system which generated this result transmitted reference range: 80 - 100 mmHg. The reference range was not used to interpret this result as normal/abnormal. HCO3 (test code = 5197767837) 13 See_Comment L [Automated messa ge] The system which generated this result transmitted reference range: 22 - 26 mEq/L. The reference range was not used to interpret this result as normal/abnormal. BE (test code = 5510816629) -12.7 See_Comment L [Automated messa ge] The system which generated this result transmitted reference range: -3.0 - 3.0 mEq/L. The reference range was not used to interpret this result as normal/abnormal. THB (test code = 9492177246) 8.1 g/dL 13.5-18.0 LL %O2HB (test code = 3537201018) 97.6 % 94.0-99.0 %COHB ART (test code = 0153445583) 0.8 % 0.0-1.5 %METHB ART (test code = 5268749011) 0.3 % 0.4-1.5 L VOL%O2 ART (test code = 5628529961) 11.5 % 15.0-23.0 L NA (test code = 4953233007) 136 mmol/L 135-145 K+ (test code = 4123731702) 5.1 mmol/L 3.5-5.0 H AC CA IONZ (test code = 1618662635) 4.70 mg/dL 4.50-5.30 GLUCOSE (test code = 3876247307) 78 mg/dL 70-110 LACTIC ACID (test code = 2047465336) 7.35 mmol/L 0.50-2.20 H Lab Interpretation (test code = 78686-8) Abnormal [facility] GLUCOSE (AUTOMATED)2023-02-22 03:02:43* Test Item Value Reference Range Interpretation Comme nts POCT GLU (test code = 3670430352) 84 mg/dL 70-110 Lab Interpretation (test cod e = 20784-3) [facility] 03:02:43* Test Item Value Reference Range Interpretation Comme [facility] POCT GLU (test code = 7892629885) 84 mg/dL 70-110 Lab Interpretation (test cod e = 03008-5) [facility] Lactic [id number] 01:22:22* Test Item Value Reference Range Interpretation Comme [facility] PH (test code = 2) 7.29 7.35-7.45 L PCO2 (test code = 9041491981) 29 See_Comment L [Automated messa ge] The system which generated this result transmitted reference range: 35 - 45 mmHg. The reference range was not used to interpret this result as normal/abnormal. PO2 (test code = 8720710222) 149 See_Comment H [Automated messa ge] The system which generated this result transmitted reference range: 80 - 100 mmHg. The reference range was not used to interpret this result as normal/abnormal. HCO3 (test code = 9025080171) 14 See_Comment L [Automated messa ge] The system which generated this result transmitted reference range: 22 - 26 mEq/L. The reference range was not used to interpret this result as normal/abnormal. BE (test code = 6140612084) -11.7 See_Comment L [Automated messa ge] The system which generated this result transmitted reference range: -3.0 - 3.0 mEq/L. The reference range was not used to interpret this result as normal/abnormal. THB (test code = 9074813529) 9.2 g/dL 13.5-18.0 L %O2HB (test code = 7795811166) 97.9 % 94.0-99.0 %COHB ART (test code = 4373807433) 0.5 % 0.0-1.5 %METHB ART (test code = 2604706231) 0.2 % 0.4-1.5 L VOL%O2 ART (test code = 3829616637) 13.0 % 15.0-23.0 L NA (test code = 4203045533) 137 mmol/L 135-145 K+ (test code = 1771869973) 5.2 mmol/L 3.5-5.0 H AC CA IONZ (test code = 2808701960) 4.40 mg/dL 4.50-5.30 L GLUCOSE (test code = 0883294387) 60 mg/dL 70-110 L LACTIC ACID (test code = 0949470320) 7.64 mmol/L 0.50-2.20 H Lab Interpretation (test code = 93728-3) [facility] Lactic [id number] 01:22:22* Test Item Value Reference Range Interpretation Comme nts PH (test code = 2) 7.29 7.35-7.45 L PCO2 (test code = 8728998329) 29 See_Comment L [Automated messa ge] The system which generated this result transmitted reference range: 35 - 45 mmHg. The reference range was not used to interpret this result as normal/abnormal. PO2 (test code = 6505985003) 149 See_Comment H [Automated messa ge] The system which generated this result transmitted reference range: 80 - 100 mmHg. The reference range was not used to interpret this result as normal/abnormal. HCO3 (test code = 8686924119) 14 See_Comment L [Automated messa ge] The system which generated this result transmitted reference range: 22 - 26 mEq/L. The reference range was not used to interpret this result as normal/abnormal. BE (test code = 7311681664) -11.7 See_Comment L [Automated messa ge] The system which generated this result transmitted reference range: -3.0 - 3.0 mEq/L. The reference range was not used to interpret this result as normal/abnormal. THB (test code = 4659359278) 9.2 g/dL 13.5-18.0 L %O2HB (test code = 8835191137) 97.9 % 94.0-99.0 %COHB ART (test code = 6417762965) 0.5 % 0.0-1.5 %METHB ART (test code = 1208529926) 0.2 % 0.4-1.5 L VOL%O2 ART (test code = 5115396157) 13.0 % 15.0-23.0 L NA (test code = 0484891695) 137 mmol/L 135-145 K+ (test code = 8582831844) 5.2 mmol/L 3.5-5.0 H AC CA IONZ (test code = 7080147000) 4.40 mg/dL 4.50-5.30 L GLUCOSE (test code = 8816699655) 60 mg/dL 70-110 L LACTIC ACID (test code = 1517590756) 7.64 mmol/L 0.50-2.20 H Lab Interpretation (test code = 37659-9) [facility] Lactic Fyim5779-45-83 23:48:56* Test Item Value Reference Range Interpretation Comme nts PH (test code = 2) 7.30 7.35-7.45 L PCO2 (test code = 8799510281) 29 See_Comment L [Automated messa ge] The system which generated this result transmitted reference range: 35 - 45 mmHg. The reference range was not used to interpret this result as normal/abnormal. PO2 (test code = 0277715855) 183 See_Comment H [Automated messa ge] The system which generated this result transmitted reference range: 80 - 100 mmHg. The reference range was not used to interpret this result as normal/abnormal. HCO3 (test code = 9096089689) 14 See_Comment L [Automated messa ge] The system which generated this result transmitted reference range: 22 - 26 mEq/L. The reference range was not used to interpret this result as normal/abnormal. BE (test code = 4087399712) -11.2 See_Comment L [Automated messa ge] The system which generated this result transmitted reference range: -3.0 - 3.0 mEq/L. The reference range was not used to interpret this result as normal/abnormal. THB (test code = 8206500327) 11.7 g/dL 13.5-18.0 L %O2HB (test code = 9295120563) 98.3 % 94.0-99.0 %COHB ART (test code = 3139097795) 0.8 % 0.0-1.5 %METHB ART (test code = 4612786041) 0.1 % 0.4-1.5 L VOL%O2 ART (test code = 5910796229) 16.6 % 15.0-23.0 NA (test code = 1459806528) 136 mmol/L 135-145 K+ (test code = 9378273125) 5.0 mmol/L 3.5-5.0 AC CA IONZ (test code = 0230278072) 4.40 mg/dL 4.50-5.30 L GLUCOSE (test code = 6104865785) 80 mg/dL 70-110 LACTIC ACID (test code = 7213903899) 7.37 mmol/L 0.50-2.20 H Lab Interpretation (test code = 29260-0) [facility] Lactic [id number] 23:48:56* Test Item Value Reference Range Interpretation Comme nts PH (test code = 2) 7.30 7.35-7.45 L PCO2 (test code = 9656622982) 29 See_Comment L [Automated messa ge] The system which generated this result transmitted reference range: 35 - 45 mmHg. The reference range was not used to interpret this result as normal/abnormal. PO2 (test code = 0935381718) 183 See_Comment H [Automated messa ge] The system which generated this result transmitted reference range: 80 - 100 mmHg. The reference range was not used to interpret this result as normal/abnormal. HCO3 (test code = 6521885584) 14 See_Comment L [Automated messa ge] The system which generated this result transmitted reference range: 22 - 26 mEq/L. The reference range was not used to interpret this result as normal/abnormal. BE (test code = 5167586804) -11.2 See_Comment L [Automated messa ge] The system which generated this result transmitted reference range: -3.0 - 3.0 mEq/L. The reference range was not used to interpret this result as normal/abnormal. THB (test code = 6312585652) 11.7 g/dL 13.5-18.0 L %O2HB (test code = 9547554388) 98.3 % 94.0-99.0 %COHB ART (test code = 9023799101) 0.8 % 0.0-1.5 %METHB ART (test code = 6593640372) 0.1 % 0.4-1.5 L VOL%O2 ART (test code = 4862119340) 16.6 % 15.0-23.0 NA (test code = 7324821087) 136 mmol/L 135-145 K+ (test code = 0216283141) 5.0 mmol/L 3.5-5.0 AC CA IONZ (test code = 8001362996) 4.40 mg/dL 4.50-5.30 L GLUCOSE (test code = 3463609755) 80 mg/dL 70-110 LACTIC ACID (test code = 1849503573) 7.37 mmol/L 0.50-2.20 H Lab Interpretation (test code = 07521-1) [facility] Lactic [id number] 22:24:02* Test Item Value Reference Range Interpretation Comme nts PH (test code = 2) 7.30 7.35-7.45 L PCO2 (test code = 7701613326) 27 See_Comment L [Automated messa ge] The system which generated this result transmitted reference range: 35 - 45 mmHg. The reference range was not used to interpret this result as normal/abnormal. PO2 (test code = 2901708971) 128 See_Comment H [Automated messa ge] The system which generated this result transmitted reference range: 80 - 100 mmHg. The reference range was not used to interpret this result as normal/abnormal. HCO3 (test code = 0364791711) 13 See_Comment L [Automated messa ge] The system which generated this result transmitted reference range: 22 - 26 mEq/L. The reference range was not used to interpret this result as normal/abnormal. BE (test code = 4488795768) -12.3 See_Comment L [Automated messa ge] The system which generated this result transmitted reference range: -3.0 - 3.0 mEq/L. The reference range was not used to interpret this result as normal/abnormal. THB (test code = 9185822632) 8.4 g/dL 13.5-18.0 L %O2HB (test code = 6318204523) 97.4 % 94.0-99.0 %COHB ART (test code = 7013320847) 0.9 % 0.0-1.5 %METHB ART (test code = 6086206686) 0.1 % 0.4-1.5 L VOL%O2 ART (test code = 8557330948) 11.8 % 15.0-23.0 L NA (test code = 3680865098) 135 mmol/L 135-145 K+ (test code = 1133535189) 4.5 mmol/L 3.5-5.0 AC CA IONZ (test code = 0442353995) 4.40 mg/dL 4.50-5.30 L GLUCOSE (test code = 1808980491) 92 mg/dL 70-110 LACTIC ACID (test code = 9024086134) 6.59 mmol/L 0.50-2.20 H Lab Interpretation (test code = 00646-2) [facility] Lactic Wypl8035-21-12 22:24:02* Test Item Value Reference Range Interpretation Comme nts PH (test code = 2) 7.30 7.35-7.45 L PCO2 (test code = 0565437999) 27 See_Comment L [Automated messa ge] The system which generated this result transmitted reference range: 35 - 45 mmHg. The reference range was not used to interpret this result as normal/abnormal. PO2 (test code = 9120695968) 128 See_Comment H [Automated messa ge] The system which generated this result transmitted reference range: 80 - 100 mmHg. The reference range was not used to interpret this result as normal/abnormal. HCO3 (test code = 1738537165) 13 See_Comment L [Automated messa ge] The system which generated this result transmitted reference range: 22 - 26 mEq/L. The reference range was not used to interpret this result as normal/abnormal. BE (test code = 1932770051) -12.3 See_Comment L [Automated messa ge] The system which generated this result transmitted reference range: -3.0 - 3.0 mEq/L. The reference range was not used to interpret this result as normal/abnormal. THB (test code = 7686795899) 8.4 g/dL 13.5-18.0 L %O2HB (test code = 3331548851) 97.4 % 94.0-99.0 %COHB ART (test code = 6405875051) 0.9 % 0.0-1.5 %METHB ART (test code = 4469172363) 0.1 % 0.4-1.5 L VOL%O2 ART (test code = 9051387921) 11.8 % 15.0-23.0 L NA (test code = 2960351807) 135 mmol/L 135-145 K+ (test code = 2516418628) 4.5 mmol/L 3.5-5.0 AC CA IONZ (test code = 3323668283) 4.40 mg/dL 4.50-5.30 L GLUCOSE (test code = 2721270344) 92 mg/dL 70-110 LACTIC ACID (test code = 8483543687) 6.59 mmol/L 0.50-2.20 H Lab Interpretation (test code = 82286-4) Abnormal [facility] GLUCOSE (AUTOMATED)2023-02-21 20:46:05* Test Item Value Reference Range Interpretation Comme nts POCT GLU (test code = 8923004375) 116 mg/dL 70-110 H Lab Interpretation (test cod e = 65712-9) Abnormal [facility] GLUCOSE (AUTOMATED)2023-02-21 20:46:05* Test Item Value Reference Range Interpretation Comme nts POCT GLU (test code = 3998844881) 116 mg/dL 70-110 H Lab Interpretation (test cod e = 18472-5) Abnormal [facility] ACT HIGH [id number] 17:39:48* Test Item Value Reference Range Interpretation Comme nts ACTHR (test code = 6304921355) 116 See_Comment [Automated messa ge] The system which generated this result transmitted reference range: 96 - 152 Seconds. The reference range was not used to interpret this result as normal/abnormal. Lab Interpretation (test code = 76521-5) Normal [facility] ACT HIGH [id number] 17:39:48* Test Item Value Reference Range Interpretation Comme nts ACTHR (test code = 5934516681) 116 See_Comment [Automated messa ge] The system which generated this result transmitted reference range: 96 - 152 Seconds. The reference range was not used to interpret this result as normal/abnormal. Lab Interpretation (test code = 21264-9) Normal [facility] HIGH [id number] 17:39:48* Test Item Value Reference Range Interpretation Comme nts ACTHR (test code = 3788575069) 443 See_Comment H [Automated messa ge] The system which generated this result transmitted reference range: 96 - 152 Seconds. The reference range was not used to interpret this result as normal/abnormal. Lab Interpretation (test code = 57709-8) Abnormal [facility] HIGH [id number] 17:39:48* Test Item Value Reference Range Interpretation Comme nts ACTHR (test code = 3634529490) 587 See_Comment H [Automated messa ge] The system which generated this result transmitted reference range: 96 - 152 Seconds. The reference range was not used to interpret this result as normal/abnormal. Lab Interpretation (test code = 24481-7) Abnormal [facility] [id number] 17:39:48* Test Item Value Reference Range Interpretation Comme nts ACTHR (test code = 1601911752) 116 See_Comment [Automated messa ge] The system which generated this result transmitted reference range: 96 - 152 Seconds. The reference range was not used to interpret this result as normal/abnormal. Lab Interpretation (test code = 73417-5) [place] [facility] [id number] 17:39:48* Test Item Value Reference Range Interpretation Comme nts ACTHR (test code = 8554631123) 443 See_Comment H [Automated messa ge] The system which generated this result transmitted reference range: 96 - 152 Seconds. The reference range was not used to interpret this result as normal/abnormal. Lab Interpretation (test code = 17806-3) Abnormal [facility] [id number] 17:39:48* Test Item Value Reference Range Interpretation Comme nts ACTHR (test code = 4272218309) 587 See_Comment H [Automated messa ge] The system which generated this result transmitted reference range: 96 - 152 Seconds. The reference range was not used to interpret this result as normal/abnormal. Lab Interpretation (test code = 48493-1) Abnormal [facility] HIGH [id number] 17:39:48* Test Item Value Reference Range Interpretation Comme nts ACTHR (test code = 1792069874) 116 See_Comment [Automated messa ge] The system which generated this result transmitted reference range: 96 - 152 Seconds. The reference range was not used to interpret this result as normal/abnormal. Lab Interpretation (test code = 55140-2) Normal [facility] HIGH [id number] 17:39:43* Test Item Value Reference Range Interpretation Comme nts ACTHR (test code = 4108128485) 482 See_Comment H [Automated messa ge] The system which generated this result transmitted reference range: 96 - 152 Seconds. The reference range was not used to interpret this result as normal/abnormal. Lab Interpretation (test code = 79555-8) Abnormal [facility] HIGH [id number] 17:39:43* Test Item Value Reference Range Interpretation Comme nts ACTHR (test code = 3274590689) 481 See_Comment H [Automated messa ge] The system which generated this result transmitted reference range: 96 - 152 Seconds. The reference range was not used to interpret this result as normal/abnormal. Lab Interpretation (test code = 75656-2) Abnormal [facility] [id number] 17:39:43* Test Item Value Reference Range Interpretation Comme nts ACTHR (test code = 3779854066) 450 See_Comment H [Automated messa ge] The system which generated this result transmitted reference range: 96 - 152 Seconds. The reference range was not used to interpret this result as normal/abnormal. Lab Interpretation (test code = 68500-7) Abnormal [facility] HIGH [id number] 17:39:43* Test Item Value Reference Range Interpretation Comme nts ACTHR (test code = 7900609454) 633 See_Comment H [Automated messa ge] The system which generated this result transmitted reference range: 96 - 152 Seconds. The reference range was not used to interpret this result as normal/abnormal. Lab Interpretation (test code = 57264-9) Abnormal [facility] HIGH [id number] 17:39:43* Test Item Value Reference Range Interpretation Comme nts ACTHR (test code = 7963518080) 625 See_Comment H [Automated messa ge] The system which generated this result transmitted reference range: 96 - 152 Seconds. The reference range was not used to interpret this result as normal/abnormal. Lab Interpretation (test code = 80413-2) Abnormal [facility] HIGH [id number] 17:39:43* Test Item Value Reference Range Interpretation Comme nts ACTHR (test code = 9526846041) 588 See_Comment H [Automated messa ge] The system which generated this result transmitted reference range: 96 - 152 Seconds. The reference range was not used to interpret this result as normal/abnormal. Lab Interpretation (test code = 28352-8) Abnormal [facility] HIGH [id number] 17:39:43* Test Item Value Reference Range Interpretation Comme nts ACTHR (test code = 7948131851) 482 See_Comment H [Automated messa ge] The system which generated this result transmitted reference range: 96 - 152 Seconds. The reference range was not used to interpret this result as normal/abnormal. Lab Interpretation (test code = 94138-0) Abnormal [facility] [id number] 17:39:43* Test Item Value Reference Range Interpretation Comme nts ACTHR (test code = 4368830185) 481 See_Comment H [Automated messa ge] The system which generated this result transmitted reference range: 96 - 152 Seconds. The reference range was not used to interpret this result as normal/abnormal. Lab Interpretation (test code = 76241-1) Abnormal [facility] HIGH [id number] 17:39:43* Test Item Value Reference Range Interpretation Comme nts ACTHR (test code = 5563067822) 450 See_Comment H [Automated messa ge] The system which generated this result transmitted reference range: 96 - 152 Seconds. The reference range was not used to interpret this result as normal/abnormal. Lab Interpretation (test code = 01324-4) Abnormal [facility] HIGH [id number] 17:39:43* Test Item Value Reference Range Interpretation Comme nts ACTHR (test code = 9421230017) 633 See_Comment H [Automated messa ge] The system which generated this result transmitted reference range: 96 - 152 Seconds. The reference range was not used to interpret this result as normal/abnormal. Lab Interpretation (test code = 60591-1) Abnormal [facility] HIGH [id number] 17:39:43* Test Item Value Reference Range Interpretation Comme nts ACTHR (test code = 0524500924) 625 See_Comment H [Automated messa ge] The system which generated this result transmitted reference range: 96 - 152 Seconds. The reference range was not used to interpret this result as normal/abnormal. Lab Interpretation (test code = 96533-2) Abnormal [facility] HIGH [id number] 17:39:43* Test Item Value Reference Range Interpretation Comme nts ACTHR (test code = 9942393909) 588 See_Comment H [Automated messa ge] The system which generated this result transmitted reference range: 96 - 152 Seconds. The reference range was not used to interpret this result as normal/abnormal. Lab Interpretation (test code = 73967-2) Abnormal [facility] HIGH [id number] 17:39:38* Test Item Value Reference Range Interpretation Comme nts ACTHR (test code = 4133540678) 515 See_Comment H [Automated messa ge] The system which generated this result transmitted reference range: 96 - 152 Seconds. The reference range was not used to interpret this result as normal/abnormal. Lab Interpretation (test code = 53723-5) Abnormal [facility] HIGH [id number] 17:39:38* Test Item Value Reference Range Interpretation Comme nts ACTHR (test code = 4599959823) 517 See_Comment H [Automated messa ge] The system which generated this result transmitted reference range: 96 - 152 Seconds. The reference range was not used to interpret this result as normal/abnormal. Lab Interpretation (test code = 39422-6) Abnormal [facility] HIGH [id number] 17:39:38* Test Item Value Reference Range Interpretation Comme nts ACTHR (test code = 1491951407) 515 See_Comment H [Automated messa ge] The system which generated this result transmitted reference range: 96 - 152 Seconds. The reference range was not used to interpret this result as normal/abnormal. Lab Interpretation (test code = 03275-8) Abnormal [facility] HIGH [id number] 17:39:38* Test Item Value Reference Range Interpretation Comme nts ACTHR (test code = 5481843273) 517 See_Comment H [Automated messa ge] The system which generated this result transmitted reference range: 96 - 152 Seconds. The reference range was not used to interpret this result as normal/abnormal. Lab Interpretation (test code = 45033-8) Abnormal [facility] HIGH [id number] 17:39:37* Test Item Value Reference Range Interpretation Comme nts ACTHR (test code = 3595650378) 728 See_Comment H [Automated messa ge] The system which generated this result transmitted reference range: 96 - 152 Seconds. The reference range was not used to interpret this result as normal/abnormal. Lab Interpretation (test code = 77004-4) Abnormal [facility] [id number] 17:39:37* Test Item Value Reference Range Interpretation Comme nts ACTHR (test code = 9101416505) 597 See_Comment H [Automated messa ge] The system which generated this result transmitted reference range: 96 - 152 Seconds. The reference range was not used to interpret this result as normal/abnormal. Lab Interpretation (test code = 52527-2) Abnormal [facility] [id number] 17:39:37* Test Item Value Reference Range Interpretation Comme nts ACTHR (test code = 4153188761) 553 See_Comment H [Automated messa ge] The system which generated this result transmitted reference range: 96 - 152 Seconds. The reference range was not used to interpret this result as normal/abnormal. Lab Interpretation (test code = 90707-0) Abnormal [facility] [id number] 17:39:37* Test Item Value Reference Range Interpretation Comme nts ACTHR (test code = 4668204949) 526 See_Comment H [Automated messa ge] The system which generated this result transmitted reference range: 96 - 152 Seconds. The reference range was not used to interpret this result as normal/abnormal. Lab Interpretation (test code = 91938-1) Abnormal [facility] HIGH [id number] 17:39:37* Test Item Value Reference Range Interpretation Comme nts ACTHR (test code = 4644273825) 520 See_Comment H [Automated messa ge] The system which generated this result transmitted reference range: 96 - 152 Seconds. The reference range was not used to interpret this result as normal/abnormal. Lab Interpretation (test code = 37548-0) Abnormal [facility] HIGH [id number] 17:39:37* Test Item Value Reference Range Interpretation Comme nts ACTHR (test code = 7079208317) 728 See_Comment H [Automated messa ge] The system which generated this result transmitted reference range: 96 - 152 Seconds. The reference range was not used to interpret this result as normal/abnormal. Lab Interpretation (test code = 15245-2) Abnormal [facility] [id number] 17:39:37* Test Item Value Reference Range Interpretation Comme nts ACTHR (test code = 2781245333) 597 See_Comment H [Automated messa ge] The system which generated this result transmitted reference range: 96 - 152 Seconds. The reference range was not used to interpret this result as normal/abnormal. Lab Interpretation (test code = 86704-3) Abnormal [facility] [id number] 17:39:37* Test Item Value Reference Range Interpretation Comme nts ACTHR (test code = 6941782033) 553 See_Comment H [Automated messa ge] The system which generated this result transmitted reference range: 96 - 152 Seconds. The reference range was not used to interpret this result as normal/abnormal. Lab Interpretation (test code = 20965-5) Abnormal [facility] [id number] 17:39:37* Test Item Value Reference Range Interpretation Comme nts ACTHR (test code = 6189217064) 526 See_Comment H [Automated messa ge] The system which generated this result transmitted reference range: 96 - 152 Seconds. The reference range was not used to interpret this result as normal/abnormal. Lab Interpretation (test code = 72990-7) Abnormal [facility] HIGH [id number] 17:39:37* Test Item Value Reference Range Interpretation Comme nts ACTHR (test code = 9582262539) 520 See_Comment H [Automated messa ge] The system which generated this result transmitted reference range: 96 - 152 Seconds. The reference range was not used to interpret this result as normal/abnormal. Lab Interpretation (test code = 35053-1) Abnormal [facility] HIGH [id number] 17:39:32* Test Item Value Reference Range Interpretation Comme nts ACTHR (test code = 7381482214) 663 See_Comment H [Automated messa ge] The system which generated this result transmitted reference range: 96 - 152 Seconds. The reference range was not used to interpret this result as normal/abnormal. Lab Interpretation (test code = 97220-3) Abnormal [facility] HIGH [id number] 17:39:32* Test Item Value Reference Range Interpretation Comme nts ACTHR (test code = 8770614506) 778 See_Comment H [Automated messa ge] The system which generated this result transmitted reference range: 96 - 152 Seconds. The reference range was not used to interpret this result as normal/abnormal. Lab Interpretation (test code = 30468-9) Abnormal [facility] [id number] 17:39:32* Test Item Value Reference Range Interpretation Comme nts ACTHR (test code = 4475008873) 581 See_Comment H [Automated messa ge] The system which generated this result transmitted reference range: 96 - 152 Seconds. The reference range was not used to interpret this result as normal/abnormal. Lab Interpretation (test code = 37805-5) Abnormal [facility] [id number] 17:39:32* Test Item Value Reference Range Interpretation Comme nts ACTHR (test code = 7362811789) 663 See_Comment H [Automated messa ge] The system which generated this result transmitted reference range: 96 - 152 Seconds. The reference range was not used to interpret this result as normal/abnormal. Lab Interpretation (test code = 58208-4) Abnormal [facility] HIGH [id number] 17:39:32* Test Item Value Reference Range Interpretation Comme nts ACTHR (test code = 4059334038) 778 See_Comment H [Automated messa ge] The system which generated this result transmitted reference range: 96 - 152 Seconds. The reference range was not used to interpret this result as normal/abnormal. Lab Interpretation (test code = 73714-0) Abnormal [facility] HIGH [id number] 17:39:32* Test Item Value Reference Range Interpretation Comme nts ACTHR (test code = 0683092840) 581 See_Comment H [Automated messa ge] The system which generated this result transmitted reference range: 96 - 152 Seconds. The reference range was not used to interpret this result as normal/abnormal. Lab Interpretation (test code = 87037-1) Abnormal [facility] HIGH [id number] 17:39:31* Test Item Value Reference Range Interpretation Comme nts ACTHR (test code = 9952155134) 701 See_Comment H [Automated messa ge] The system which generated this result transmitted reference range: 96 - 152 Seconds. The reference range was not used to interpret this result as normal/abnormal. Lab Interpretation (test code = 88402-1) Abnormal [facility] [id number] 17:39:31* Test Item Value Reference Range Interpretation Comme nts ACTHR (test code = 2067579790) 749 See_Comment H [Automated messa ge] The system which generated this result transmitted reference range: 96 - 152 Seconds. The reference range was not used to interpret this result as normal/abnormal. Lab Interpretation (test code = 78222-5) Abnormal [facility] [id number] 17:39:31* Test Item Value Reference Range Interpretation Comme nts ACTHR (test code = 3549847646) 701 See_Comment H [Automated messa ge] The system which generated this result transmitted reference range: 96 - 152 Seconds. The reference range was not used to interpret this result as normal/abnormal. Lab Interpretation (test code = 06462-6) Abnormal [facility] HIGH [id number] 17:39:31* Test Item Value Reference Range Interpretation Comme nts ACTHR (test code = 1212291612) 749 See_Comment H [Automated messa ge] The system which generated this result transmitted reference range: 96 - 152 Seconds. The reference range was not used to interpret this result as normal/abnormal. Lab Interpretation (test code = 59126-0) Abnormal [facility] HIGH [id number] 17:39:26* Test Item Value Reference Range Interpretation Comme nts ACTHR (test code = 4174831459) 109 See_Comment [Automated messa ge] The system which generated this result transmitted reference range: 96 - 152 Seconds. The reference range was not used to interpret this result as normal/abnormal. Lab Interpretation (test code = 47995-1) Normal [facility] HIGH [id number] 17:39:26* Test Item Value Reference Range Interpretation Comme nts ACTHR (test code = 9322986287) 592 See_Comment H [Automated messa ge] The system which generated this result transmitted reference range: 96 - 152 Seconds. The reference range was not used to interpret this result as normal/abnormal. Lab Interpretation (test code = 55895-2) Abnormal [facility] HIGH [id number] 17:39:26* Test Item Value Reference Range Interpretation Comme nts ACTHR (test code = 5565968585) 109 See_Comment [Automated messa ge] The system which generated this result transmitted reference range: 96 - 152 Seconds. The reference range was not used to interpret this result as normal/abnormal. Lab Interpretation (test code = 89280-9) Normal [facility] HIGH [id number] 17:39:26* Test Item Value Reference Range Interpretation Comme nts ACTHR (test code = 4422532031) 592 See_Comment H [Automated messa ge] The system which generated this result transmitted reference range: 96 - 152 Seconds. The reference range was not used to interpret this result as normal/abnormal. Lab Interpretation (test code = 78524-3) Abnormal [facility] GLUCOSE (AUTOMATED)2023-02-21 17:27:58* Test Item Value Reference Range Interpretation Comme nts POCT GLU (test code = 0130847210) 132 mg/dL 70-110 H Lab Interpretation (test cod e = 95352-7) Abnormal [facility] GLUCOSE (AUTOMATED)2023-02-21 17:27:58* Test Item Value Reference Range Interpretation Comme nts POCT GLU (test code = 2823805195) 132 mg/dL 70-110 H Lab Interpretation (test cod e = 53788-4) Abnormal [facility] GLUCOSE (AUTOMATED)2023-02-21 17:04:57* Test Item Value Reference Range Interpretation Comme nts POCT GLU (test code = 1337960848) 174 mg/dL 70-110 H Lab Interpretation (test cod e = 77611-6) Abnormal [facility] GLUCOSE (AUTOMATED)2023-02-21 17:04:57* Test Item Value Reference Range Interpretation Comme nts POCT GLU (test code = 1650023806) 174 mg/dL 70-110 H Lab Interpretation (test cod e = 39848-9) Abnormal [facility] GLUCOSE (AUTOMATED)2023-02-21 12:51:22* Test Item Value Reference Range Interpretation Comme nts POCT GLU (test code = 3123238807) 24 mg/dL 70-110 LL Lab Interpretation (test cod e = 03166-8) Abnormal [facility] GLUCOSE (AUTOMATED)2023-02-21 12:51:22* Test Item Value Reference Range Interpretation Comme nts POCT GLU (test code = 6133880845) 148 mg/dL 70-110 H Lab Interpretation (test cod e = 35070-9) Abnormal [facility] GLUCOSE (AUTOMATED)2023-02-21 12:51:22* Test Item Value Reference Range Interpretation Comme nts POCT GLU (test code = 4031624791) 24 mg/dL 70-110 LL Lab Interpretation (test cod e = 23076-1) Abnormal [facility] GLUCOSE (AUTOMATED)2023-02-21 12:51:22* Test Item Value Reference Range Interpretation Comme nts POCT GLU (test code = 7651252656) 148 mg/dL 70-110 H Lab Interpretation (test cod e = 05344-9) [facility] [id number] 08:53:37* Test Item Value Reference Range Interpretation Comme nts PH (test code = 2) 7.37 7.35-7.45 PCO2 (test code = 1579289939) 32 See_Comment L [Automated messa ge] The system which generated this result transmitted reference range: 35 - 45 mmHg. The reference range was not used to interpret this result as normal/abnormal. PO2 (test code = 6428885207) 107 See_Comment H [Automated messa ge] The system which generated this result transmitted reference range: 80 - 100 mmHg. The reference range was not used to interpret this result as normal/abnormal. HCO3 (test code = 5552090306) 18 See_Comment L [Automated messa ge] The system which generated this result transmitted reference range: 22 - 26 mEq/L. The reference range was not used to interpret this result as normal/abnormal. BE (test code = 4273084630) -6.1 See_Comment L [Automated messa ge] The system which generated this result transmitted reference range: -3.0 - 3.0 mEq/L. The reference range was not used to interpret this result as normal/abnormal. THB (test code = 2428200874) 8.0 g/dL 13.5-18.0 LL %O2HB (test code = 3853979766) 96.3 % 94.0-99.0 %COHB ART (test code = 9381819717) 0.8 % 0.0-1.5 %METHB ART (test code = 7513598647) 0.1 % 0.4-1.5 L VOL%O2 ART (test code = 0504052410) 11.0 % 15.0-23.0 L NA (test code = 2980982622) 136 mmol/L 135-145 K+ (test code = 5480527921) 4.2 mmol/L 3.5-5.0 AC CA IONZ (test code = 0832027871) 4.30 mg/dL 4.50-5.30 L GLUCOSE (test code = 3773103266) 154 mg/dL 70-110 H LACTIC ACID (test code = 5306854622) 1.99 mmol/L 0.50-2.20 Lab Interpretation (test code = 29548-4) [facility] [id number] 08:53:37* Test Item Value Reference Range Interpretation Comme nts PH (test code = 2) 7.37 7.35-7.45 PCO2 (test code = 9838915423) 32 See_Comment L [Automated messa ge] The system which generated this result transmitted reference range: 35 - 45 mmHg. The reference range was not used to interpret this result as normal/abnormal. PO2 (test code = 7740681283) 107 See_Comment H [Automated messa ge] The system which generated this result transmitted reference range: 80 - 100 mmHg. The reference range was not used to interpret this result as normal/abnormal. HCO3 (test code = 7854655629) 18 See_Comment L [Automated messa ge] The system which generated this result transmitted reference range: 22 - 26 mEq/L. The reference range was not used to interpret this result as normal/abnormal. BE (test code = 6258737083) -6.1 See_Comment L [Automated messa ge] The system which generated this result transmitted reference range: -3.0 - 3.0 mEq/L. The reference range was not used to interpret this result as normal/abnormal. THB (test code = 3949772872) 8.0 g/dL 13.5-18.0 LL %O2HB (test code = 7867035492) 96.3 % 94.0-99.0 %COHB ART (test code = 7063257077) 0.8 % 0.0-1.5 %METHB ART (test code = 1523134052) 0.1 % 0.4-1.5 L VOL%O2 ART (test code = 1208361160) 11.0 % 15.0-23.0 L NA (test code = 2042113557) 136 mmol/L 135-145 K+ (test code = 4905288737) 4.2 mmol/L 3.5-5.0 AC CA IONZ (test code = 7932190617) 4.30 mg/dL 4.50-5.30 L GLUCOSE (test code = 4115023645) 154 mg/dL 70-110 H LACTIC ACID (test code = 8893570633) 1.99 mmol/L 0.50-2.20 Lab Interpretation (test code = 31600-6) [facility] [id number] 04:59:48* Test Item Value Reference Range Interpretation Comme nts PH (test code = 2) 7.40 7.35-7.45 PCO2 (test code = 1839176012) 32 See_Comment L [Automated messa ge] The system which generated this result transmitted reference range: 35 - 45 mmHg. The reference range was not used to interpret this result as normal/abnormal. PO2 (test code = 8768603154) 113 See_Comment H [Automated messa ge] The system which generated this result transmitted reference range: 80 - 100 mmHg. The reference range was not used to interpret this result as normal/abnormal. HCO3 (test code = 9441075182) 19 See_Comment L [Automated messa ge] The system which generated this result transmitted reference range: 22 - 26 mEq/L. The reference range was not used to interpret this result as normal/abnormal. BE (test code = 7516703562) -5.0 See_Comment L [Automated messa ge] The system which generated this result transmitted reference range: -3.0 - 3.0 mEq/L. The reference range was not used to interpret this result as normal/abnormal. THB (test code = 1530584284) 8.9 g/dL 13.5-18.0 L %O2HB (test code = 2077010213) 96.5 % 94.0-99.0 %COHB ART (test code = 2578589540) 0.7 % 0.0-1.5 %METHB ART (test code = 5906485127) 0.1 % 0.4-1.5 L VOL%O2 ART (test code = 9809189881) 12.3 % 15.0-23.0 L NA (test code = 6990423477) 134 mmol/L 135-145 L K+ (test code = 0786680075) 4.3 mmol/L 3.5-5.0 AC CA IONZ (test code = 6576670107) 4.20 mg/dL 4.50-5.30 L GLUCOSE (test code = 3343155456) 148 mg/dL 70-110 H LACTIC ACID (test code = 7781686486) 1.91 mmol/L 0.50-2.20 Lab Interpretation (test code = 27162-2) [facility] [id number] 04:59:48* Test Item Value Reference Range Interpretation Comme nts PH (test code = 2) 7.40 7.35-7.45 PCO2 (test code = 4892385665) 32 See_Comment L [Automated messa ge] The system which generated this result transmitted reference range: 35 - 45 mmHg. The reference range was not used to interpret this result as normal/abnormal. PO2 (test code = 3167033148) 113 See_Comment H [Automated messa ge] The system which generated this result transmitted reference range: 80 - 100 mmHg. The reference range was not used to interpret this result as normal/abnormal. HCO3 (test code = 8985012841) 19 See_Comment L [Automated messa ge] The system which generated this result transmitted reference range: 22 - 26 mEq/L. The reference range was not used to interpret this result as normal/abnormal. BE (test code = 7837738042) -5.0 See_Comment L [Automated messa ge] The system which generated this result transmitted reference range: -3.0 - 3.0 mEq/L. The reference range was not used to interpret this result as normal/abnormal. THB (test code = 0302389689) 8.9 g/dL 13.5-18.0 L %O2HB (test code = 3058392745) 96.5 % 94.0-99.0 %COHB ART (test code = 2882741108) 0.7 % 0.0-1.5 %METHB ART (test code = 1654285378) 0.1 % 0.4-1.5 L VOL%O2 ART (test code = 0818818362) 12.3 % 15.0-23.0 L NA (test code = 6508686813) 134 mmol/L 135-145 L K+ (test code = 0875044675) 4.3 mmol/L 3.5-5.0 AC CA IONZ (test code = 8451576855) 4.20 mg/dL 4.50-5.30 L GLUCOSE (test code = 5745183885) 148 mg/dL 70-110 H LACTIC ACID (test code = 6802869302) 1.91 mmol/L 0.50-2.20 Lab Interpretation (test code = 57937-8) Abnormal [facility] GLUCOSE (AUTOMATED)2023-02-21 01:03:39* Test Item Value Reference Range Interpretation Comme nts POCT GLU (test code = 9500549754) 123 mg/dL 70-110 H Lab Interpretation (test cod e = 57271-5) Abnormal [facility] GLUCOSE (AUTOMATED)2023-02-21 01:03:39* Test Item Value Reference Range Interpretation Comme nts POCT GLU (test code = 0914995172) 123 mg/dL 70-110 H Lab Interpretation (test cod e = 30891-5) Abnormal [facility] GLUCOSE (AUTOMATED)2023-02-20 21:30:37* Test Item Value Reference Range Interpretation Comme nts POCT GLU (test code = 0771868952) 46 mg/dL 70-110 LL Lab Interpretation (test cod e = 85686-0) Abnormal [facility] GLUCOSE (AUTOMATED)2023-02-20 21:30:37* Test Item Value Reference Range Interpretation Comme nts POCT GLU (test code = 0931518404) 161 mg/dL 70-110 H Lab Interpretation (test cod e = 63022-3) Abnormal [facility] GLUCOSE (AUTOMATED)2023-02-20 21:30:37* Test Item Value Reference Range Interpretation Comme nts POCT GLU (test code = 3837975052) 46 mg/dL 70-110 LL Lab Interpretation (test cod e = 89633-7) Abnormal [facility] GLUCOSE (AUTOMATED)2023-02-20 21:30:37* Test Item Value Reference Range Interpretation Comme nts POCT GLU (test code = 5679271398) 161 mg/dL 70-110 H Lab Interpretation (test cod e = 03792-2) Abnormal [facility] GLUCOSE (AUTOMATED)2023-02-20 16:23:09* Test Item Value Reference Range Interpretation Comme nts POCT GLU (test code = 9608724940) 123 mg/dL 70-110 H Lab Interpretation (test cod e = 56351-2) Abnormal [facility] GLUCOSE (AUTOMATED)2023-02-20 16:23:09* Test Item Value Reference Range Interpretation Comme nts POCT GLU (test code = 7169175992) 123 mg/dL 70-110 H Lab Interpretation (test cod e = 52127-1) Abnormal [facility] GLUCOSE (AUTOMATED)2023-02-20 12:39:38* Test Item Value Reference Range Interpretation Comme nts POCT GLU (test code = 9021158696) 72 mg/dL 70-110 Lab Interpretation (test cod e = 87596-6) Normal [facility] GLUCOSE (AUTOMATED)2023-02-20 12:39:38* Test Item Value Reference Range Interpretation Comme nts POCT GLU (test code = 9803653752) 72 mg/dL 70-110 Lab Interpretation (test cod e = 77407-3) Normal [facility] METABOLIC PANEL (NA, K, CL, CO2, GLUCOSE, BUN, CREATININE, CA)2023-02-20 09:48:50* Test Item Value Reference Range Interpretation Comme nts NA (test code = 5969650712) 137 mmol/L 135-145 K (test code = 2980303243) 4.6 mmol/L 3.5-5.0 CL (test code = 6044012428) 104 mmol/L 98-108 CO2 TOTAL (test code = 3297358142) 22 mmol/L 23-31 L AGAP (test code = 4982161907) 11 2-16 BUN (test code = 0491706462) 68 mg/dL 7-23 H GLUCOSE (test code = 1160613688) 185 mg/dL 70-110 H CREATININE (test code = 6952368782) 2.63 mg/dL 0.60-1.25 H CALCIUM (test code = 7713979486) 7.4 mg/dL 8.6-10.6 L eGFR (test code = 1999240351) 24.9 mL/min/1.73m2 MIKAYLA (test code = MIKAYLA) Association of [...] or abnormalities in imaging tests). Lab Interpretation (test code = 83350-7) [facility]:48:50* Test Item Value Reference Range Interpretation Comme nts MAGNESIUM (test code = 0980925255) 2.8 mg/dL 1.7-2.4 H Lab Interpretation (test cod e = 14636-3) [facility] 09:48:50* Test Item Value Reference Range Interpretation Comme nts PHOSPHORUS (test code = 6282466865) 3.7 mg/dL 2.5-5.0 Lab Interpretation (test cod e = 15385-8) [facility] (NA, K, CL, CO2, GLUCOSE, BUN, CREATININE, CA)2023-02-20 09:48:50* Test Item Value Reference Range Interpretation Comme nts NA (test code = 5282748083) 137 mmol/L 135-145 K (test code = 4449176173) 4.6 mmol/L 3.5-5.0 CL (test code = 3545927048) 104 mmol/L 98-108 CO2 TOTAL (test code = 4577747839) 22 mmol/L 23-31 L AGAP (test code = 3834360626) 11 2-16 BUN (test code = 8969428449) 68 mg/dL 7-23 H GLUCOSE (test code = 3469648566) 185 mg/dL 70-110 H CREATININE (test code = 8202550926) 2.63 mg/dL 0.60-1.25 H CALCIUM (test code = 4539235030) 7.4 mg/dL 8.6-10.6 L eGFR (test code = 7944162749) 24.9 mL/min/1.73m2 MIKAYLA (test code = MIKAYLA) Association of [...] or abnormalities in imaging tests). Lab Interpretation (test code = 57272-2) [facility] 09:48:50* Test Item Value Reference Range Interpretation Comme nts MAGNESIUM (test code = 6567177460) 2.8 mg/dL 1.7-2.4 H Lab Interpretation (test cod e = 01325-3) [facility] 09:48:50* Test Item Value Reference Range Interpretation Comme nts PHOSPHORUS (test code = 5670050600) 3.7 mg/dL 2.5-5.0 Lab Interpretation (test cod e = 35977-2) [facility] [id number] 09:25:45* Test Item Value Reference Range Interpretation Comme nts WBC (test code = 6690-2) 13.59 See_Comment H [Automated [employer] ge] The system which generated this result transmitted reference range: 4.20 - 10.70 10*3/?L. The reference range was not used to interpret this result as normal/abnormal. RBC (test code = 789-8) 2.50 See_Comment L [Automated message] The system which generated this result transmitted reference range: 4.26 - 5.52 10*6/?L. The reference range was not used to interpret this result as normal/abnormal. HGB (test code = 718-7) 7.5 g/dL 12.2-16.4 L HCT (test code = 4544-3) 23.5 % 38.4-49.3 L MCH (test code = 785-6) 30.0 pg 26.1-32.7 MCV (test code = 787-2) 94.0 fL 81.7-95.6 MCHC (test code = 786-4) 31.9 g/dL 31.2-35.0 PLT (test code = 777-3) 72 See_Comment L [Automated message] The system which generated this result transmitted reference range: 150 - 328 10*3/?L. The reference range was not used to interpret this result as normal/abnormal. MPV (test code = 27589-4) 13.9 fL 9.8-13.0 H RDW-CV (test code = 788-0) 16.3 % 12.1-15.4 H RDW-SD (test code = 29676-8) 54.6 fL 38.5-51.6 H NRBC x10^3 (test code = 4450902675) 0.15 See_Comment [Automated [employer]] The system which generated this result transmitted reference range: 10*3/?L. The reference range was not used to interpret this result as normal/abnormal. NRBC/100 WBC (test code = 9246786503) 1.1 See_Comment [Automated [employer]] The system which generated this result transmitted reference range: 0.0 - 10.0 /100 WBCs. The reference range was not used to interpret this result as normal/abnormal. IPF % (test code = 1729349708) 20.8 % 1.2-10.7 H Platelet count measured by fluorescence method. Lab Interpretation (test code = 17274-2) Abnormal [facility] WITHOUT [id number] 09:25:45* Test Item Value Reference Range Interpretation Comme nts WBC (test code = 6690-2) 13.59 See_Comment H [Automated messa ge] The system which generated this result transmitted reference range: 4.20 - 10.70 10*3/?L. The reference range was not used to interpret this result as normal/abnormal. RBC (test code = 789-8) 2.50 See_Comment L [Automated message] The system which generated this result transmitted reference range: 4.26 - 5.52 10*6/?L. The reference range was not used to interpret this result as normal/abnormal. HGB (test code = 718-7) 7.5 g/dL 12.2-16.4 L HCT (test code = 4544-3) 23.5 % 38.4-49.3 L MCH (test code = 785-6) 30.0 pg 26.1-32.7 MCV (test code = 787-2) 94.0 fL 81.7-95.6 MCHC (test code = 786-4) 31.9 g/dL 31.2-35.0 PLT (test code = 777-3) 72 See_Comment L [Automated message] The system which generated this result transmitted reference range: 150 - 328 10*3/?L. The reference range was not used to interpret this result as normal/abnormal. MPV (test code = 90896-4) 13.9 fL 9.8-13.0 H RDW-CV (test code = 788-0) 16.3 % 12.1-15.4 H RDW-SD (test code = 45406-9) 54.6 fL 38.5-51.6 H NRBC x10^3 (test code = 5853087337) 0.15 See_Comment [Automated messa ge] The system which generated this result transmitted reference range: 10*3/?L. The reference range was not used to interpret this result as normal/abnormal. NRBC/100 WBC (test code = 4517955998) 1.1 See_Comment [Automated messa ge] The system which generated this result transmitted reference range: 0.0 - 10.0 /100 WBCs. The reference range was not used to interpret this result as normal/abnormal. IPF % (test code = 1965103129) 20.8 % 1.2-10.7 H Platelet count measured by fluorescence method. Lab Interpretation (test code = 16426-8) Abnormal [facility] GLUCOSE (AUTOMATED)2023-02-20 08:59:49* Test Item Value Reference Range Interpretation Comme nts POCT GLU (test code = 8053232425) 189 mg/dL 70-110 H Lab Interpretation (test cod e = 24228-6) Abnormal [facility] GLUCOSE (AUTOMATED)2023-02-20 08:59:49* Test Item Value Reference Range Interpretation Comme nts POCT GLU (test code = 3873658855) 189 mg/dL 70-110 H Lab Interpretation (test cod e = 81861-6) Abnormal [facility] GLUCOSE (AUTOMATED)2023-02-20 06:05:20* Test Item Value Reference Range Interpretation Comme nts POCT GLU (test code = 9266658540) 196 mg/dL 70-110 H Lab Interpretation (test cod e = 25069-6) Abnormal [facility] GLUCOSE (AUTOMATED)2023-02-20 06:05:20* Test Item Value Reference Range Interpretation Comme nts POCT GLU (test code = 9062790965) 196 mg/dL 70-110 H Lab Interpretation (test cod e = 68635-8) [facility] Test Item Value Reference Range Interpretation Comme nts MAGNESIUM (test code = 5185129659) 2.6 mg/dL 1.7-2.4 H Lab Interpretation (test cod e = 35325-2) [facility]:27[facility]* Test Item Value Reference Range Interpretation Comme nts MAGNESIUM (test code = 4062973493) 2.6 mg/dL 1.7-2.4 H Lab Interpretation (test cod e = 26745-9) Abnormal [facility] METABOLIC PANEL (NA, K, CL, CO2, GLUCOSE, BUN, CREATININE, CA)2023-02-20 01:43:50* Test Item Value Reference Range Interpretation Comme nts NA (test code = 5573800686) 140 mmol/L 135-145 K (test code = 0263708954) 3.8 mmol/L 3.5-5.0 CL (test code = 9349971102) 106 mmol/L 98-108 CO2 TOTAL (test code = 5967381129) 22 mmol/L 23-31 L AGAP (test code = 3266338164) 12 2-16 BUN (test code = 2236024270) 64 mg/dL 7-23 H GLUCOSE (test code = 8313858907) 167 mg/dL 70-110 H CREATININE (test code = 8298482406) 2.52 mg/dL 0.60-1.25 H CALCIUM (test code = 9224562699) 7.4 mg/dL 8.6-10.6 L eGFR (test code = 8180499475) 26.1 mL/min/1.73m2 MIKAYLA (test code = MIKAYLA) Association of [...] or abnormalities in imaging tests). Lab Interpretation (test code = 02653-8) [facility] (NA, K, CL, CO2, GLUCOSE, BUN, CREATININE, CA)2023-02-20 01:43:50* Test Item Value Reference Range Interpretation Comme nts NA (test code = 8428111139) 140 mmol/L 135-145 K (test code = 4109550847) 3.8 mmol/L 3.5-5.0 CL (test code = 2640554623) 106 mmol/L 98-108 CO2 TOTAL (test code = 1610000018) 22 mmol/L 23-31 L AGAP (test code = 4122965100) 12 2-16 BUN (test code = 9350225010) 64 mg/dL 7-23 H GLUCOSE (test code = 4384003066) 167 mg/dL 70-110 H CREATININE (test code = 9998525606) 2.52 mg/dL 0.60-1.25 H CALCIUM (test code = 4681049565) 7.4 mg/dL 8.6-10.6 L eGFR (test code = 5393600231) 26.1 mL/min/1.73m2 MIKAYLA (test code = MIKAYLA) Association of [...] or abnormalities in imaging tests). Lab Interpretation (test code = 19760-7) Abnormal [facility] GLUCOSE (AUTOMATED)2023-02-20 01:23:47* Test Item Value Reference Range Interpretation Comme nts POCT GLU (test code = 9051678266) 164 mg/dL 70-110 H Lab Interpretation (test cod e = 35737-8) Abnormal [facility] GLUCOSE (AUTOMATED)2023-02-20 01:23:47* Test Item Value Reference Range Interpretation Comme nts POCT GLU (test code = 6863387838) 164 mg/dL 70-110 H Lab Interpretation (test cod e = 58383-1) Abnormal [facility] GLUCOSE (AUTOMATED)2023-02-19 22:57:22* Test Item Value Reference Range Interpretation Comme nts POCT GLU (test code = 6720102110) 166 mg/dL 70-110 H Lab Interpretation (test cod e = 38862-2) Abnormal [facility] GLUCOSE (AUTOMATED)2023-02-19 22:57:22* Test Item Value Reference Range Interpretation Comme nts POCT GLU (test code = 7693510457) 166 mg/dL 70-110 H Lab Interpretation (test cod e = 43921-8) [facility] 19:47:12* Test Item Value Reference Range Interpretation Comme nts MAGNESIUM (test code = 4602525389) 2.9 mg/dL 1.7-2.4 H Lab Interpretation (test cod e = 07654-8) [facility] 19:47:12* Test Item Value Reference Range Interpretation Comme nts MAGNESIUM (test code = 7354711288) 2.9 mg/dL 1.7-2.4 H Lab Interpretation (test cod e = 08799-0) [facility] LACTIC [id number] 19:39:08* Test Item Value Reference Range Interpretation Comme nts PH (test code = 5285984377) 7.43 7.32-7.42 H PCO2 ANANDA (test code = 4505126907) 36 See_Comment L [Automated messa ge] The system which generated this result transmitted reference range: 41 - 51 mmHg. The reference range was not used to interpret this result as normal/abnormal. PO2 ANANDA (test code = 7057619937) 29 See_Comment [Automated messa ge] The system which generated this result transmitted reference range: 25 - 40 mmHg. The reference range was not used to interpret this result as normal/abnormal. HCO3 ANANDA (test code = 4428785864) 23 See_Comment L [Automated messa ge] The system which generated this result transmitted reference range: 24 - 28 mEq/L. The reference range was not used to interpret this result as normal/abnormal. AC VBE(BEAKER) (test code = 0471462361) -1.2 mEq/L THB ANANDA (test code = 5924288473) 10.2 g/dL 13.5-18.0 L %O2HB ANANDA (test code = 4740842941) 50.1 % 52.0-63.0 L %COHB ANANDA (test code = 1654024914) 0.8 % 0.0-1.5 %METHB ANANDA (test code = 0940767513) 0.1 % 0.4-1.5 L VOL%O2 ANANDA (test code = 4735022396) 7.2 % 6.0-12.0 NA (test code = 2325785173) 143 mmol/L 135-145 K+ (test code = 2632088320) 4.0 mmol/L 3.5-5.0 AC CA IONZ (test code = 8227466568) 4.30 mg/dL 4.50-5.30 L GLUCOSE (test code = 2909356063) 173 mg/dL 70-110 H LACTIC ACID (test code = 5965722767) 2.21 mmol/L 0.50-2.20 H Lab Interpretation (test code = 25720-2) [facility] LACTIC [id number] 19:39:08* Test Item Value Reference Range Interpretation Comme nts PH (test code = 5803927854) 7.43 7.32-7.42 H PCO2 ANANDA (test code = 6728364523) 36 See_Comment L [Automated messa ge] The system which generated this result transmitted reference range: 41 - 51 mmHg. The reference range was not used to interpret this result as normal/abnormal. PO2 ANANDA (test code = 5479347496) 29 See_Comment [Automated messa ge] The system which generated this result transmitted reference range: 25 - 40 mmHg. The reference range was not used to interpret this result as normal/abnormal. HCO3 ANANDA (test code = 4877668280) 23 See_Comment L [Automated messa ge] The system which generated this result transmitted reference range: 24 - 28 mEq/L. The reference range was not used to interpret this result as normal/abnormal. AC VBE(BEAKER) (test code = 7307853305) -1.2 mEq/L THB ANANDA (test code = 3384749101) 10.2 g/dL 13.5-18.0 L %O2HB ANANDA (test code = 4778425587) 50.1 % 52.0-63.0 L %COHB ANANDA (test code = 9255903300) 0.8 % 0.0-1.5 %METHB ANANDA (test code = 8735943381) 0.1 % 0.4-1.5 L VOL%O2 ANANDA (test code = 0349208256) 7.2 % 6.0-12.0 NA (test code = 9770171420) 143 mmol/L 135-145 K+ (test code = 0919667290) 4.0 mmol/L 3.5-5.0 AC CA IONZ (test code = 1860746203) 4.30 mg/dL 4.50-5.30 L GLUCOSE (test code = 8568495754) 173 mg/dL 70-110 H LACTIC ACID (test code = 4362872956) 2.21 mmol/L 0.50-2.20 H Lab Interpretation (test code = 08456-1) Abnormal [facility] METABOLIC PANEL (NA, K, CL, CO2, GLUCOSE, BUN, CREATININE, CA)2023-02-19 18:49:24* Test Item Value Reference Range Interpretation Comme nts NA (test code = 2852822545) 147 mmol/L 135-145 H K (test code = 5062578044) 4.0 mmol/L 3.5-5.0 CL (test code = 7266648966) 110 mmol/L 98-108 H CO2 TOTAL (test code = 2717405570) 23 mmol/L 23-31 AGAP (test code = 5058334721) 14 2-16 BUN (test code = 7691467878) 66 mg/dL 7-23 H GLUCOSE (test code = 6765411125) 163 mg/dL 70-110 H CREATININE (test code = 5985037138) 2.43 mg/dL 0.60-1.25 H CALCIUM (test code = 2372688007) 7.3 mg/dL 8.6-10.6 L eGFR (test code = 3412817975) 27.3 mL/min/1.73m2 MIKAYLA (test code = MIKAYLA) Association of [...] or abnormalities in imaging tests). Lab Interpretation (test code = 64175-2) Abnormal [facility] METABOLIC PANEL (NA, K, CL, CO2, GLUCOSE, BUN, CREATININE, CA)2023-02-19 18:49:24* Test Item Value Reference Range Interpretation Comme nts NA (test code = 8888833187) 147 mmol/L 135-145 H K (test code = 8938050304) 4.0 mmol/L 3.5-5.0 CL (test code = 6669560756) 110 mmol/L 98-108 H CO2 TOTAL (test code = 8034039277) 23 mmol/L 23-31 AGAP (test code = 0154770286) 14 2-16 BUN (test code = 0368743453) 66 mg/dL 7-23 H GLUCOSE (test code = 4860069450) 163 mg/dL 70-110 H CREATININE (test code = 1066465747) 2.43 mg/dL 0.60-1.25 H CALCIUM (test code = 9122399217) 7.3 mg/dL 8.6-10.6 L eGFR (test code = 2521738072) 27.3 mL/min/1.73m2 MIKAYLA (test code = MIKAYLA) Association of [...] or abnormalities in imaging tests). Lab Interpretation (test code = 13336-7) [facility]IC [id number] 17:49:48* Test Item Value Reference Range Interpretation Comme nts PH (test code = 9008101518) 7.47 7.32-7.42 H PCO2 ANANDA (test code = 3728327628) 30 See_Comment L [Automated messa ge] The system which generated this result transmitted reference range: 41 - 51 mmHg. The reference range was not used to interpret this result as normal/abnormal. PO2 ANANDA (test code = 5311213491) 42 See_Comment H [Automated messa ge] The system which generated this result transmitted reference range: 25 - 40 mmHg. The reference range was not used to interpret this result as normal/abnormal. HCO3 ANANDA (test code = 8585205950) 22 See_Comment L [Automated messa ge] The system which generated this result transmitted reference range: 24 - 28 mEq/L. The reference range was not used to interpret this result as normal/abnormal. AC VBE(BEAKER) (test code = 1938938539) -2.1 mEq/L THB ANANDA (test code = 6517210748) 4.0 g/dL 13.5-18.0 LL %O2HB ANANDA (test code = 6199762247) 75.5 % 52.0-63.0 H %COHB ANANDA (test code = 9518194126) 1.3 % 0.0-1.5 %METHB ANANDA (test code = 5000416839) 0.8 % 0.4-1.5 VOL%O2 ANANDA (test code = 9355205693) 4.3 % 6.0-12.0 L NA (test code = 8150797137) 142 mmol/L 135-145 K+ (test code = 5290421629) 3.9 mmol/L 3.5-5.0 AC CA IONZ (test code = 0080628296) 4.10 mg/dL 4.50-5.30 L GLUCOSE (test code = 3723932231) 169 mg/dL 70-110 H LACTIC ACID (test code = 6722272886) 1.99 mmol/L 0.50-2.20 Lab Interpretation (test code = 70443-9) [facility] [id number] 17:49:48* Test Item Value Reference Range Interpretation Comme nts PH (test code = 4608077262) 7.47 7.32-7.42 H PCO2 ANANDA (test code = 9954176577) 30 See_Comment L [Automated messa ge] The system which generated this result transmitted reference range: 41 - 51 mmHg. The reference range was not used to interpret this result as normal/abnormal. PO2 ANANDA (test code = 6935362397) 42 See_Comment H [Automated messa ge] The system which generated this result transmitted reference range: 25 - 40 mmHg. The reference range was not used to interpret this result as normal/abnormal. HCO3 ANANDA (test code = 9838521561) 22 See_Comment L [Automated messa ge] The system which generated this result transmitted reference range: 24 - 28 mEq/L. The reference range was not used to interpret this result as normal/abnormal. AC VBE(BEAKER) (test code = 3795129430) -2.1 mEq/L THB ANANDA (test code = 8189216243) 4.0 g/dL 13.5-18.0 LL %O2HB ANANDA (test code = 4967605262) 75.5 % 52.0-63.0 H %COHB ANANDA (test code = 4532479734) 1.3 % 0.0-1.5 %METHB ANANDA (test code = 4134536625) 0.8 % 0.4-1.5 VOL%O2 ANANDA (test code = 6760617208) 4.3 % 6.0-12.0 L NA (test code = 0648939804) 142 mmol/L 135-145 K+ (test code = 4610829860) 3.9 mmol/L 3.5-5.0 AC CA IONZ (test code = 6272333107) 4.10 mg/dL 4.50-5.30 L GLUCOSE (test code = 9274555395) 169 mg/dL 70-110 H LACTIC ACID (test code = 5726711235) 1.99 mmol/L 0.50-2.20 Lab Interpretation (test code = 78664-9) Abnormal [facility] GLUCOSE (AUTOMATED)2023-02-19 16:34:11* Test Item Value Reference Range Interpretation Comme nts POCT GLU (test code = 8047059421) 148 mg/dL 70-110 H Lab Interpretation (test cod e = 42018-1) Abnormal [facility] GLUCOSE (AUTOMATED)2023-02-19 16:34:11* Test Item Value Reference Range Interpretation Comme nts POCT GLU (test code = 4056903315) 148 mg/dL 70-110 H Lab Interpretation (test cod e = 08583-7) [id number] 15:24:20* Test Item Value Reference Range Interpretation Comme nts Case Report (test code = 7541289845) Surgical Pathology ?Case: [id number] ? Authorizing Provider: ?Burke Long MD ?Collected: ? 02/13/2023 1218 ?Ordering Location: ? ? [facility] OR ? Received: ?02/14/2023 0823 ? Department ? Pathologist: ? He Armstrong MD ?Specimens: ? A) - AORTIC VALVE, AORTIC VALVE LEAFLETS ? B) - MITRAL VALVE, MITRAL VALVE LEAFLETS ? Final Diagnosis (test code = 1556882460) h3wonRNjTBOii6jqIUNjrG FuZzEwMzNcZnRuYmpcdWMx IHtccnRmMVxlcGljMTAyMD koj1mum8uerTIvTVYng5mt v9NlgTQwgXRlRKkbkDXsty Hxtp61hVG9hD34ZB2lXBGm TfR8ETRsonI4Phz7GRWyQX VpkUMuI979w7api9qgmbDb vVQ9FSGeTNOiA6LoAF6eCH UpvQOhT16bmWXuGGX3SJDl HHZvuDRyVTMxJGP8DFCsiT UlX8cdOXSdBP5dwhdkOGbd XXxiHAAfoWJ0HTLcwLKcE3 LcUVJwDEunPMIejcf6FyAy Ng9gfNDhiFnnUXynOFFmEV 6ic4paF8CbdDYfKKCyMUwb XGZzMjBccGFyXHBhcmRcdH x9IuGneHpaJMMnPTO5DfA4 HMg7wUI9DVGrsYzqRbCmUR N2LGUnJPg5eEWkOSHxyUp2 PbKxCEF1HuA3GNn0nFgwPG VmlEq0ULAlYIJ9DGU7SGi0 xMwwFtWqoAtxSFJ7YXzmCY XpBEDVGnNOS1IZSRYzLnLJ VkUgTEVBRkxFVFMsIEVYQ0 nWQC9YCTdMQ5BuME0XXSqY ZWKVXJOCJNFPTWzMT4FVUF 5UKTpccGFyICAgICAgLSBW QUxWVUxBUiBUSVNTVUUgV0 tKHTTJKXeHRSVrCZGLSX9L BqOXJK0QROWWJ1TSSHLUKE PTNYBUXqpITDPBQ87ZGGVq nyHvBLOqCJGzGE3KGCXDAn JGX6qWRUDUS36ZQOPJZJ4M DYdRICdaY7BLM2xXJDNlIO 9VZSgHCRLXQD9XY0rRNlqg GCQglFUnOCakc9vuQLL2lW QttcqbTGQsqPPqMDj5xRoj MOz1yZP8YGQkgQohQSEuZE Y2Pef1ZBs4fKJ1ZXGdkZu3 HyEkXSU2OSQ6LHp5hCZ4Tq GwaLa2QFetXOS9WhIeDOu3 fGe4UpJyoPf6CwWuCKN0BM E4OFk4nONnAPgwKZFbJP6S VFJBTCBWQUxWRSBMRUFGTE MIZsqhASzVJZVVP33xHZDy UCBNSVRSQUwgVkFMVkUgUk GGQAKNVJ4QOeJjLonaQRFk ICAgICAtIFZBTFZVTEFSIF XQN3SVZSWXGLFIMV1ASG5Y KYEEMQsSVbGDUMKMW20vOA 6NDSSVGhSQS1vFUUWPV33P SPVUOP0WHOWevdXoPDFmZA ZwO7nVDVKPQIXDWLuoNaHN JmKxK2GGRm7TRYYdTDPmat yrNIIqLN3nn6jaG9GujXVx XGIwXGNmMFxwYXJcZnMyMi AYu2YuvUyeH71vznEhnKwp TUQgIDYvMjAvMjAyMyAgOT f8SYIUFYtaVFTqIzHuMOmv WAI1t4awiENsHBUtcQAtSs VfXYRlQXDjk2cvMJLctRUm ZzEwMzNcZnRuYmpcdWMxXG HxYkVui7wji609zXBda8qr MULfGwB7tLJuANKbwHzzwh z9zIkvRcQmUTIzk2dlycZq ZmNoYXJzZXQwIEFyaWFsO3 41MBNiOTwzq2izr8DbFOQe cKJll9R2PZYPFXoyQfRlE6 50u9mre5rdjoBvmVZ6APLy FQJ8HUdfqkZmleN9JPvauX FqGpO9MWnwagRlQKajhtNw nlOoAlr3XFSoS117EOX9uY xqd0wrMES4YOThQMIsRboz Zn5skWAyG206VLLpVDNPAG QciWl1KFCpuhDikzYepIFI m902Y635r5iePQWtdoWihE zZxrouq6lxX616SSJobMHx vzGiUfJuIDJvoZXshQJ4PD ZuRH5qlywpWPszHKlyJHOv naU1HMQzsRVvP8SxFJMpTT 9qwomgXSS7ZQcjADDrBSP5 ClDnJUQlo5Mgyck3LbAxfb 4dcs40BCA1t4MtkIhiTZU7 TPV0JsPxBk7pgVUpDXJuQR 0fJpSfpIIgRNLjoh18lXks LRsdhkOdhP4qUyKaDILutX EzOFDfUS7mzCAxIVJzjJ7d cmxjXHBnYnJkcmhlYWRccG rtgeBcSa8vyTlgEUW3PYlj F1utzA7zSwC0LXsjQ6gznO 7jBPs6GIerjCC7OXOcrZ5z OY1ebhslw0ckIOfrQLxmYX PmkiA4sgR4UGNwgBKyA3No xE9dCZPeDV8vqvonw7qbAR L6AGkqXDKyAJY3CnQkLHIt n5Zlhua2LbVxk2QopGRqZX yjK50gv669EZTxvoWnX8fw bGFpblxwbGFpblxmMFxmcz E7YMFvMNMlHWxlYQMdEYEy MjBcbGFuZzEwMzNcaGljaF daSCuaHbThIDIsWOarN6tq OrHsE8YtBWMtEeJdcVDlQM fhyLZ4JMWwXGAxa16wmHf0 RWEiqkpww4BsORWkpSLltK TojA4fggMzh7ifJBYvLVZs UOCyL6ZlHHM2eFFoGVFwbI QygUE0VT9tatLfAQ5qZFHq YnkgcmVzaWRlbnRzLCBmZW pny9tfSC3vUXJuyYjfcT3w wBQ9TPIkv9eymCZmcJJit4 usm4YmyeBiTGskONMhLJpb RGIcQCNwVW6hSQShhQOfdi Pfb2C2UohftRGsgcmnOzzq ekG6LIemrfliXIWdBHrpR0 roTjBlQWJapXitUpfho9Vz XGYyXGZzMjhccGFyfX0= Clinical Information (test code = [id number]) Mitral valve stenosis, unspecified etiology [I05.0]Aortic valve stenosis, etiology of cardiac valve disease unspecified [I35.0]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 [I25.10] Gross Description (test code = [id number]) u7xggDYsISCmbOQSAOKkHW EjPS3ctOyldPf1sEdcLDLs dcN4xZEpBYoct5qmFFJ0c8 imvcAFHgzoKGHlON7yCSzh OZQxLQ0oDtViTJKfNrUrFK BhcGVydzEyMjQwXHBhcGVy tBP1QGZoQH1tpqgtLYkxDQ cpKGOzycB3CLMymKLpO6Gb AAGlSK1twzmoUOD0NTOMMy ukMs9rpSZwqHteOsFjJvCz YXJzZXQwXGZuaWwgQXJpYW h2rY7TXvmzNSK1VQTYXkxc NucwvQcem3EcdZPlCPEcVD xcaWQgNTEwMDAgXFxkYiBP DfVnFjY7MtVkPrW1HrM1TV s2WMKCOZWhPsu3NSRnGJB8 EUl3NGRrSR1mHDmgmKVlEK ciIznoDEtuV101LCnaFBBz N3RzF3LxHCfyTpDqVDdtQR DwAHLmAAsfRYEqW1GZDUXw ZjroAJUxJLPtWCm4SBtyK9 KUXRGvGYHzVbG7FkX9ZrV9 BNm9WRTZEh9yUJzeSTdvCJ UeKZJ9BDq4BAJnSXMtUqJi JZDhQQIqYTetpLEoMM4jxX vkUXSxAT6VOXByWRraMOXn PmTvG7CWZ7sQQT0bWVfpGT IgDQpccGFyZCANClxwbGFp zpzrgeQaXPt5iwZhALKfPw QvNZGkS28bj8TEn8PpQR9W VUl3mxAzhyfwnE5yUVZblb Igp2UrTFifhFwrQWPwEsWf JJzIuXExfK7fsqHHVCdeHL YvJ3CrfcPzRRIcNGLtPJve TbExEJGqf0i8aTJ6oJShvA D9qEMllMunUQ8efAUjKBME LJ04tBWdpaxzUeZymmOmAc O5CTa7WOPbLGCyeKR0yxYe TB2eGVKmamSww6OzTK9qBE FopSCgBZlovAmhdgFoyg95 gNWdKEdpqRHjoXN3WFo9DC YtOh00PWgtGv35LQlyLM83 MOUiXG2dICunLDLsEDOtgX LjWCmkCOXcuzynmOf4MBSo X0Dbk94vFPN8frFzQUHfZL wgdGFuLXllbGxvdywgdmFy aWVnYXRlZCwgcnViYmVyeS PpdKKcs9ZcMfVpRXYhq1g8 kT66kQVvWOgvmQKlW4O5zV 1tGaNdG0Wuk3XzhQAwgVZs zVJmeT73g6owUIWkbcXnpb FpwMOsSG9mGZJAVKWkCUOi nbBqhAv3UUVsYTS0jL4gxo BytoByy7IbmCl6bSGaNZkc TVBfNg0EURTzvXWIXCI6AR 6tDOimQGOjR3RaX1JtjzA5 XHBhciANCntcKlxlcGljc2 VjdCBcXHNnIFxcaWQgNTEw JCZrCDgtIbUVAiQoXrL8Iu NrXkB2QvD7VZv6HCVBTsMb NdOsSnZ0VNPgYMZbTKu7RO l0COcTXyAmXSKpSHF2Svn6 EKQ8RXytSUlhvTKgNMabb7 TyMzSqWXKqBMiymfF3YMQe rxOlz4KnULCpPBBvX8yoGb EwNSANClxmczIwIFNQRUNJ OCJEIYBteXBgMI7LBWYrcv TcHNcqfGcxsC2agRQlI0wu ZnMyMFxmczIyXGVwaWNOZX R1CZ5bHLHUHkklhRKsXZMe qDdgXHpsbQ4vZIBrLoJqQE NtT7xoKySyGQ9GT7BsZ8fp GK9cKUArkzArOKSnaFHoUH BmcmVzaCBsYWJlbGVkIHdp dGggdGhlIHBhdGllbnQncy HuUY3cUXKKJTXinZ3sNNMi ICJtaXRyYWwgdmFsdmUgbG NyRcutjIHiSDDjLZViw14c fNN2dkMnSxCpgRb6oEZpQK G4PR1yeDCqzH74ODaatkFz dWxhciwgdHJhYmVjdWxhdG GuMPOsFtDhiAhoh2ZdRNEv KQkfSX22zdLvpsSkA5ynQj Ovaj4wIKDeQZW3yxItQiGm V19guN8jL4ZlZMExh9ItGJ vfAO9iwV9xUPWmXnZsuNTo RzVflNQmVdgnL58muF3aAS yayfHlQINnAV7lUNihQJMi ZWNpbWVuIGlzIHNlcmlhbG i4IWMxP4Cao35kSBN8ypAu ZXZlYWwgdGFuLXllbGxvdy wgdmFyaWVnYXRlZCwgcnVi QfGbySQlnTYxo3ObWkEjWN Zrj5q2lR08dFScLDhnzENn J2M0eS6iIxIZELGkHNCqdi KjiKw6KUVyOCX8zH4absMw SeFjMVGgDPJhWFxeQA60CU AnOPXkwMOtyRK7IGNakV5v QjEtQjIuXHBhciANClxzYj QsQKVoS1daTpWyRWkweLXc AB6KXEAaFjMaZSLuI5lzGE OoVX2LKQOthLLRATisf0Ja ZKbsQCOtZVPRE8DkMNysVH DqU00rs9QJs2Xet0pafDss c5FqkHTcQF05KNVgfZDaDL B4EP0cpRhlCTEkRFepkDJw ZCANCn0= Disclaimer (test code = [id number]) i4ttaZUmLOLjx1baRSAscL FuZzEwMzNcZnRuYmpcdWMx TDdebvSqPSoeh8UoL8FkWu AwMFxhbnNpXGRlZmxhbmcx YJPdDXT9yvVfHRRdTBhnGB XhPZpzZw7nkIWzhHubLlVb LIQlr9kjdiDAZYqfCgArD7 99BYObAGflg0gxb2HlNHWw ePUlh0Z6WEYQywpmxSx0fZ wyL48ru2V0SowgT1nhWWVm UQKgB6OuTC4hPKXoWnq4KK G1OAD5IXOwVIIdD9YuLL5m UHBdfEWqOQw6b6nudCuvKV XtPMM2z9odIZzchaCgWX7m px4vmWv7l4lxhkSwWGKsXT TsrNALCADbX5DhoKyhKw5l kKm6oPifFnooGAW8Uaz8AZ 3jjr17abb6kXpyMQQrjqxl RrN8RHcdGKDlkgtpIDb1JB ljAIZffZS2CVYxwMGzE0Fm VGTcHV8ajcw3MBT6QBmgMJ YyXiG7HQAxlZCyHXAbkGnd PJeyn703XAM7GjOkIG1oQ5 Jor4L6iA6qmYXlDTNxxAEv PyNcSPRfgl9zxMWgXSqrd9 QvXMK5tnF8tUKfjITbCCZj VC28Qsgjl3OsBmgcs4BuY9 2nzLT8UQxdx7zkRY7lNiX0 aeJlXEkvk3saaF9iFxY9HV yiRA0tVB4gCIFjhO3kdzfb XHBnYnJkcmhlYWRccGdicm UnEo4tvYoyGFT3QOuiU5zd xQ7wLdR4YVtwX8yboA8xJI b5CHgaaNO7WWFpfY1jRK6g mhwgg5auAEwdVQkgDHJpat Q3ukO8SUOeeLTtC6WkeH8y GIHmEY2qagzqs9kzXJD2OJ crFCKnXHW4MxRzXEMbh8Ie hys6DpIgo9BngWMiFOraO9 0td184UCYldtXxF0koqQXn rltxqBGjwozwIAzdxzV8QC NuyqXfo5GcYFUlBGT0ULqy WEonxLTyWMSvzNjap7qcM3 RscGFyXHBsYWluXGYxXGZz MjBcbGFuZzEwMzNcaGljaF pxZWcnVlBeTZGtCRetB5gs VzDcF7IfGGRbVzXnlIGwU4 ggVGhpcyByZXBvcnQgbWF5 OVsnM4j4LTXulrJgaRd3cl LeBxXjRPByVFR4QXwaaPRn QZSqa0KktamnfHXxZd8qwT IzXLOgzP5zMJShMSKwXEqb OO7nnJu5KCQBqRPnlIGnBe GIFRKgFF91foDtDJVQedth g1A6AUguNWKjt9PgySNvW2 pkg0GwMPOke01qUW5ok1D3 o0glRQR9HJ5qk0TqIXDpvQ SgzRDnHAKqa1Whwhzhp7Oe SIYeloRzu7GqVLWllbQkyL IaZHYpfaVjbw9ereKiSGPl QABpW8VfoydouIgkbkClPK Fefp2xdyTqCDY3REEILLMi XHBld1PhsS6gfCFPEBP3gB Ccep2doxBZnFAyIZYyml93 HFUiPZ3uF8lkCSKlADQiax AtlUPet8XbDMRyvCN3aOWm OE3ERqZMu90tVLMaUAPHfo RwGORvkPhrxDA5agD3nX4b IChGREEpLlx+IFRoZSBGRE QiJG9hfiPgm8GobrAldVcx PXYjnHGqg3AbpJCaa7KpwR yrf1YqbHFfeQEgHT7aQGSr clxwYXIgVVRNQiBMYWJvcm W9d7CfUSAzGKCqZLQ4dUgu hxk9HIPybX7tHPWeB7bbkd yiYZxcJZZkv5DggM8aqJSK yZKzz1XmlIDhkQVYhTKmKF 9ykyAmBBcWVCyILIG7clAk ZBCcn1TtKKncI3eaV38yuE shpYj6sYL0KIU7yW8zEos+ IFxwYXJccGFyIEFwcHJvcH LwCKYplWufqrDgB7BgjqFp dG3hkFGhcrGdSN3vDR5eV8 Y6aUXcALZjwrXbf3cgVHzc dmUgYmVlbiByZXZpZXdlZC Hic6FiWMbmJYX8KCrjjkWs bmNsdWRpbmcgSCZFLCBTcG UcbXHeTIG4HYixpwCxzsLf PB2unH5dlWdbsN9fzTQkqG J2imnyBBZgSNAtgUgeYDVe JG8uhXUsVKDjzaEZvIasbW RxvW7oP0GrPAMgTQYiue5b CFCmhY7uZGclq3CiidtkSM RoRUNaWBVeicZwjv0aFQNs cHCOJX2UUAqtnIYpw3Eywc ZqZ0fDNDO1PHPwRmLwNrzr KTXlzKTtkNLvHAIpif23ZA UatN8iyAewRQUtvH2djW4s aSxhiM2rKtNgQpGpEVomTF 8dYGWoK6qniWSxDMAtJQHj U5mdDnEauU5wrRbeMZvbJi MpQsIdAYaxPSV0wT== Embedded Images (test code = [id number]) [facility] [id number] 15:24:20* Test Item Value Reference Range Interpretation Comme nts Case Report (test code = [id number]) Surgical Pathology ?Case: [id number] ? Authorizing Provider: ?Burke Long MD ?Collected: ? 02/13/2023 1218 ?Ordering Location: ? ? [facility] OR ? Received: ?02/14/2023 0823 ? Department ? Pathologist: ? He Armstrong MD ?Specimens: ? A) - AORTIC VALVE, AORTIC VALVE LEAFLETS ? B) - MITRAL VALVE, MITRAL VALVE LEAFLETS ? Final Diagnosis (test code = [id number]) e6poxBYaBHTek6zpQJQisG FuZzEwMzNcZnRuYmpcdWMx IHtccnRmMVxlcGljMTAyMD nzh7vyg3zgqGQuFGMmq8lt p4KnpCDogYGnGOrufQBbul Sjkh19qXP4mK40NC0qILWg BoR8KKFghyG6Yrn4HMAyGE RymICgU269a2xeh0iglgPh oIC3SYZoFJYsQ7CuMA5lXQ FmjBNwG94roPHoVNQ3XFIu NOIfeZMhDHEkWMP7NQOfdR DeL1djSKNbLU7ptavhHMpj JFxySBXipEN4CQZtiIUhP7 OdYAAvKTqjMRSwsid9McRc Kk9jiYIvhZtePXpoOOIkGR 2gz8xfA0FdgAXiAWJxENmo XGZzMjBccGFyXHBhcmRcdH y7SlBjeXczUQDnQEA2GtC6 UEy9lKJ0APOvkWxkPrEnIX Z4NSHdCQj2rBAuGTZczIk9 UqLsRCG2ScX2BFo0xTpjVY SwcBc1FYWmKLT0PDE6TLm0 jLjqAjYleTfbQKD1QCegIM UoPCQADaHCC4NDHZIwEtRD VkUgTEVBRkxFVFMsIEVYQ0 iNVL6FUBoLE4EtSF2RKHxU UNDGBORRFBDKKSgJH6VFKN 5UKTpccGFyICAgICAgLSBW QUxWVUxBUiBUSVNTVUUgV0 kQPGKSNKwGMEEzMIOXDT3Y FkGQMA7RLICIZ2HXUOEYNQ VZKIIYOsfRBCOIO01YXVYd vhDgNZSzAOHoIE3FGXZNLw NNR8lBMRRKO91KNORNFK7Q TIuTSTowR8IQA8dASDLkFA 8QTSnCIGNBWR9HE6zIQnmu YIKuvRJyLSgbc2qkYAA4dX CwrpvcPTWjaBCnMQa9yVav FTb8ySJ0MWPtoLvrLLNlRI L4Vav4KWf6yNB0ORLxeIl9 BaMaGAP5MJU6TWm9xLT4He JssZt2NVdaXPY8BfAyLYr6 fZv5WcByuLd8VbQxYBC1WB X9ILt5vMBuJByyHGGnFF0T VFJBTCBWQUxWRSBMRUFGTE VRBmqvCClVVVNGV16sGEVm UCBNSVRSQUwgVkFMVkUgUk ZPUEWQIP6LKiXxYfnoVNIe ICAgICAtIFZBTFZVTEFSIF DGC0ZCBMDQWEQDMQ9VQP8H EUDLYLwNCzSAAPVSD32hYU 6LLUYJWmKAY4nIMBWBH93V LNLVNH5GANRsurDfUUJmVB LgC0cJPKHTVXTULQqtDoQG XhPqW5RIXy4YZCYsEODhca kxIJJfTI7gb3yhE8HnyHPg XGIwXGNmMFxwYXJcZnMyMi NFg4CgsKziL63lcaXggIrg TUQgIDYvMjAvMjAyMyAgOT f9LQNVOEgvCHVnMcBfROpi HIU9l1bctJIkARCqfLRsKp DgAWAqKVPcf5orJZRsaTXz ZzEwMzNcZnRuYmpcdWMxXG LjPtZpo9vfc563lDDkv1is EACjUrS7bJCiBXYmuVufnv k5iKkcLcIuGDIet6rawjAs ZmNoYXJzZXQwIEFyaWFsO3 65FIGtTDdlh0fbs1LdAJXn kHVry8Y0FCIUMRteKtIvR7 34v8ulw9nyjnKrsEB6GXCe UOY1YAowgoOenrK2HUvebU RvIxV0RKebfsEaXTpheyCf vkJwBdz9VDUjQ581JMZ3xW nyw3dcFUG1AANjXTCoAjab Ht1nfALuM798KNWmRLKGQC MphCd4VQGfynNroiGfwAHA d076N286q6qqULFmpgTbqV xNacddg0kvK570ZJLypGOk ejHjArPcKQIjmENxkYR5HL ErMR8sigthLHzcTRkrJAHr dwX1WKPkvFXfQ4UkHYIkWR 2vaffkDUP7OSpsMTNaDCM3 TuOhWDHeq1Hdgro5YuZjwt 9vzs90YMU7k1VulTodMVP8 AZW4YkYfCz2hmOZaUKAxBK 1mXoOmeMMzKUAjjc03pQhe BLkkokOteU6nAuRcKONwpG CyPSAoZJ3ebTWiOEDrdN9u cmxjXHBnYnJkcmhlYWRccG rxziIcCn1tpPaiALD7OTlu H3rkcN4oCzM5AQbpB0aviS 5cPTy4OSmypLQ5DAUipB7a UM9ibcsjb3mdAGbgDInmCS DyvvQ1nmG2IQTxjJFzO9Lw qD7vOGMqKQ8sebdoq1fuTU N4YYxtAHQfQFO0DzFiYGAk o7Dyukh1YkEga3WhiBKmVA wqN27gd508CNVfkbYhS5nh bGFpblxwbGFpblxmMFxmcz O8PLHdNHFuBLytGPBpPOTg MjBcbGFuZzEwMzNcaGljaF ewZHagXtLaAJPtCUszC1ig OlRnR0FjEMTxDhJfiYWcGJ kmfNP6UNVdYORze21vnEr0 COEusmofl7ZuQIUxeYSgvW AntI3mztVff1vqSCDoWFLd EVYoZ5KyASJ2kWEsKBYjoY UunEM4SK9pmdJeKY2sQZDf YnkgcmVzaWRlbnRzLCBmZW kzs9buKM7eORLehVzzgE4m lOA7YCJsw5cktIUgdOUim4 soo7XisyDzOObcUYWyAErw XTZxSKQwGA4uKWUjmCNhqq Cyw7U1ZmuroNJjrajjHitl alI6KQzxrpunMODpBAyqO0 zsEuCbPWOxkRnrDyvog9Hq XGYyXGZzMjhccGFyfX0= Clinical Information (test code = [id number]) Mitral valve stenosis, unspecified etiology [I05.0]Aortic valve stenosis, etiology of cardiac valve disease unspecified [I35.0]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 [I25.10] Gross Description (test code = [id number]) c1rfbBVwJWHqvPOBFAOlIL YrYO6bsCkdtIu7fNxoJNLf gvS6rKItWZjka0jvZOV9o7 nfjeBWZeufXKNhCY5hDTsz EVYdXI8vAzDgRYZvQtOsMK BhcGVydzEyMjQwXHBhcGVy mGN3VZIzIR7gzqogLGraZE knVUUenzO8SKLhjGIpA6Nt GIQdAH6rpbtzQOP3MVCZNj imGa0ejLRosQwzOmRfCtTa YXJzZXQwXGZuaWwgQXJpYW n8hZ8AZlowWJK6OQANNpja AelijMxun7OpvRJtTFVkRA xcaWQgNTEwMDAgXFxkYiBP IuAhPxH2QcUhQpM0NkV8IB g9NRFHZLEdAfv8OYStLPD2 RBa3JIVzQC6lFPdrwUHuLV pzSdkwPHuoI660CLhyYCId R8SsF9KqAQqoFzFqIOjvOU KeOITuAVrdWJEpV6TJPLUm IzcgNAAqXPPeGAn1FEyqJ3 HVKHYpNJNwBkU0TjO8AhK5 JLa3VRIRYv3eDEgfKOpjBE TrXTZ2CDn1SINlHBJdDlRm ZFDhZFLxTRtiyLOsZI1rxI jlUPAzIY9SIZWlOPxnKJDa NpFzT2GUZ8eLMY4kMUgtHR IgDQpccGFyZCANClxwbGFp mkdydaXoIFz7nbJdYNPhEb XvCIYjF42do9BNj3RzFN0W TSv2uoItpnjmlD1xBYRfyn Rwf3MmGLoanJhpFYVuCvZv MNgFlCWivA4jgqZJPMoeQK DaB7YmgpKdJMZlRRPgNWji YvFzBZZey4r4sIM9uDEikE N3jWBjhTvqFA5obKBkFDEJ DJ19kGQjwdliVdVqboAhRl F6PWe1CDUeTTDgaTK2rrSc TU7qRYQkrwSwe6JpOQ3sBC ZubQAoKHrhjAvvkkFbcc88 bKQxKSfwdXLthRQ0TEk0VE PdOh62QGrlJk63PFbmEU74 BZHaBN9oOGeyDGZjQAUgkK ImERajRGLzpchimEy1SSOf F4Xxc57jZYB9wmTwNRCeVR wgdGFuLXllbGxvdywgdmFy aWVnYXRlZCwgcnViYmVyeS EqzMLps5OfOoGhPZNbe0q6 nG53fNWsNUznkCXwY3V4oY 4vXxWvX9Tyf6LyqMDfbVHo wYBgcX66m3zuDBCdgvYhqf PmpWMfJS5jJNFCLCNkHHUy ljQofAt2WCYdALE5sA2ger ZkonExl5PxjYv2vSKhDXfm ERIzFq0DXZJthQPCSNW2FY 5vJZdnBNHiC7HtF9MqjcU4 XHBhciANCntcKlxlcGljc2 VjdCBcXHNnIFxcaWQgNTEw CLPgEYqbUpKJZrLrZfW9Wp WgCnU4MiR0TVn9RUYKPtTv DgGvUyF6FFPmQLUnSKp6OD q1WFkTSpVsXPRuLPF9Dlx2 WHC6QAosJEoxeRUpFEuar4 DpMcMqRLAfMAdkbbF8KHUc ctDwp0JxVILeEDFdM0ebNk EwNSANClxmczIwIFNQRUNJ VIUUSZRpoYImRU1PGLTppg SeGVdawQqjnE1plXVtP8bf ZnMyMFxmczIyXGVwaWNOZX H6GV4mXZIZTwonjUUxOFBn sFckDLsniG5lNHPkRrHiTU NzY9miOsBxEK0JQ5PzX4bd NC8nTRIaznYaWUKvrHEeNE BmcmVzaCBsYWJlbGVkIHdp dGggdGhlIHBhdGllbnQncy FjYW4uNOLZBAHyoL6sNTNj ICJtaXRyYWwgdmFsdmUgbG MuYmmnkWPqEAVeJBSug02z cVK8vpPhAiEqnIj5rVRyVG B0RO1mrNVieZ87MRxsabDk dWxhciwgdHJhYmVjdWxhdG SiLOErMqXrpCnqb9DyMELh LRmsMH00jjWqghOpH8vwHk Dtfn9kTXOlARU6sfZsEnGr Q74vaY1fA1RoWRMif5EzVR qjEF7kpR6sXKWwXtSibFXp TkVdlCXqMdxbB51fdU1hXG grvyVvEIGkDV1bKPnpTQHv ZWNpbWVuIGlzIHNlcmlhbG v8BJZqE9Cqw01vLHH1rnGy ZXZlYWwgdGFuLXllbGxvdy wgdmFyaWVnYXRlZCwgcnVi GmMroLNyxQGha8UlBzWiYE Dlo7s2oG25nLSeTJhsrFZf J2B6yM8qNcOBJZWgSGIuug SlrNv2IPEsGWF3zF1xrcEc VcVcHALaGJHsEDjjIF85OT SaBKSooSKmjWW4VCHstD4l QjEtQjIuXHBhciANClxzYj KlIJVdI2cvNzZcQKhimEDw LI1DFMCnIuPfTOFyE5vrTD FsSD5RKAIdiDFWXKceq7Pl YCsmQAIbBCQRG2IeEHnpOJ MpD89lm6QOj4Yur9pptLhl m1HyuAQiSJ27AHGdyXMwZY J3JN2meYmxDDCsFMahkZCo ZCANCn0= Disclaimer (test code = [id number]) h3hbgDRdDGOhd9rjMYKzgA FuZzEwMzNcZnRuYmpcdWMx ZYlwetJhNHrmc8NkG4JyFd AwMFxhbnNpXGRlZmxhbmcx QZQhEZI0tmTzQWTkNWmdTM XpARxzJx0opQPhjIhbGhPv OWSfu7qodgSZQQusEmGlT3 05PLXwSWiln2tln3IrMMGd pEYwr8G8CDVLoxiekPh9wR hpN01js7H8CxydF6kvMGQv BACmE9DeGJ4mBAMdHcj9MX K6NDW6FDBlWKGpM9BjTN3a VQYnzGTxUUx6k9dxsHnfGD AxLLN1x5qfRIhkqpHmRJ5d du6llKe4s9blviAtLLDfFI FtjOLVXZFjT5VdcDesQm6m vRi5vNouAcpiLNJ6Fdi1EG 0jek04chi8gVpvWCJgsjny EuQ2YXedRQLyumirSHt1HM esEIZmdMS9HUPuaFRnX5Vp KJIzTK6pxcf8EOC4NCepHQ EnIwC6RFPqrCYfEWWelFyn KGueu101IEQ8BzEbMJ6tO4 Mfm1A9fY2fzOImTGQjpLLf UkTlNCLqoh3yqDJtZYqht5 UaXSN7edF0iMChzXXrVHCc NN74Tohuh7WbIbrtv6JoO2 7ryOS1JTibi6htJU4tTwH8 uyWgVYdyd9xpyI0mZhO4EX ftGP9bRE2sOLQvyM2pundu XHBnYnJkcmhlYWRccGdicm WeOa1wiTwjMEU6OBrrN7mw fQ2nJhH4KBnuL9szeM0mUU g4VBimdPJ4GMFjnY3pTO7t lkxms2vtYQulVVbpIJBhwb O1vbN7YVNpnCQxH1NwbI5b XDSfJB6dxkflz0mlARH0WV xeAKHoMLZ7AxLjKHUmb6Re nhw2EjAnp3GwxLMeEAlvR6 2vk605BHVwwaKuX8cnsNQl fzlwcRHiznqyVLfbtnC0XO UosdUmf8DuFTZsCWJ1MVbm IYoyhVPnIKHqfYsnd2rdI4 RscGFyXHBsYWluXGYxXGZz MjBcbGFuZzEwMzNcaGljaF abRSduXtGcJYPlWMoqL7ci ChRwM2MiLLPzPaCkrXWsB5 ggVGhpcyByZXBvcnQgbWF5 RCudR2w8OCPmsuGatHl7pq JfKzIuCZAtKUQ8FIkeoSTb OZFdm0NjyffnnBLjAa9yfD MoTWImqX3zBOSeEUCoFNwm FH1ipAt4HVBCkFCniTHhHi GEZVCkRA52snZtARJEgdxq r2W9RLpjSDTkk6VloSEdP7 zws0YuPDBjf31nQK5qh2X6 m3juFPR0EA0lu5NfYEYzrD PhhLWpMFEqp7Fsqzhnw8Ve LCSdayPfp8QhTSHadgNdcH KkVDUttiMghv1vywVsSGOi ONOnK7DnemofqAunphXyDU Trqi5qwoGsCEJ8XUAFLVXw VNKqh2IxfQ1ntJUDYDI6yM Ceqx2jfrSGnWGlCGRkjv95 BGEwCH5xE1pfQUEyRYAcpb HxuXQga4IuKKFpdYK6lUYp MW1SRnQNz50iMVVtYKVErw RfZSKadLibbRM7lyF4kV0s IChGREEpLlx+IFRoZSBGRE CdBI2xblJie4YiroOjpPta FLMarUBlc1OrgWApo6UtgL iar2IbvCNfrZIqKA1dULCj clxwYXIgVVRNQiBMYWJvcm E3r1EyEXPkXWZrBNT9oHth fsx0YQFypK2qQSMzL1eimq xzEUddXYOsy1NagD6tjZSK vQXoo2IbaOZejGLQoTUdQG 7gtfJvQYzLWUsXHPP5xmBw UVXno1NrMGebY2ghG55ieR tafFx0uNT7DJN2bM4qXbb+ IFxwYXJccGFyIEFwcHJvcH FxMMFtoZenfaKsF4DlitDh xI0jkDLgrkCeVL9nYJ3sM3 F1vPKuJJPxojZqq4hjVAkb dmUgYmVlbiByZXZpZXdlZC Kmt2WpVZceSQA2OTmvkrYp bmNsdWRpbmcgSCZFLCBTcG CwfDVzKGD0UPiwljXkqiFn FP7baA6qhUffxV7raIGnlK J6hkoxPEXcNEFexVdcJHDb JN6ajWWiMWJpjaPCdZibnA OnwC9cA4HkHHIlHVSlbm0w BHSuxJ0hPQajo2MylavtAC NqROFvVHMfcrIcoo6gIAWb bTUUWF0MFJlxnVJmf8Oyhr WhB3dJKEB7EZFcMoAaIxsj GIIreFLfbXVcWVTqqq47TL CllX6adFhwQTUliQ0qpG0h zTpeqY5dEcZqUwIlQJyrYZ 1hCRMwU3unrVEfIGXsNMIz M2wcMaTaoK0rjUnhVCekSi OoDqKuXQmuPRW8xC== Embedded Images (test code = [id number]) [facility] [id number] 15:24:20* Test Item Value Reference Range Interpretation Comme nts Case Report (test code = [id number]) Surgical Pathology ?Case: [id number] ? Authorizing Provider: ?Burke Long MD ?Collected: ? 02/13/2023 1218 ?Ordering Location: ? ? [facility] OR ? Received: ?02/14/2023 0823 ? Department ? Pathologist: ? He Armstrong, ?Specimens: ? A) - AORTIC VALVE, AORTIC VALVE LEAFLETS ? B) - MITRAL VALVE, MITRAL VALVE LEAFLETS ? Final Diagnosis (test code = [id number]) [id number] FuZzEwMzNcZnRuYmpcdWMx IHtccnRmMVxlcGljMTAyMD haq3sok8sqqOQpBAEqw8al x0DblFZfaMHoSDmveIWkwg Bgrs15dCL2vH80AU0pOIOr MkL1LMPhqxS3Kiy7IKEpSJ KjzRJsY918o2ahd8qqxfRr fTR4XGBwAZHrL7VhEU1zQL OuoDIjZ61hgJNpXUI8RSGy AOVshXUkOVOeZGC4XUXveB NsE8iwFQPiSR7ygaehKRne UVemSBXkdNA6OQUpgCHpD7 VlBLSgDGflULPdjte9VjVi Yt3tdCTxmKbcLDetJWVtFX 9bf5tfE3JmsKBjDJCkRCoe XGZzMjBccGFyXHBhcmRcdH z8WnXvnVccLBGxIKJ7JiQ8 WSz1cOD3JWNsvFhuEfQeAB S4XKHaFVx1hYQaSPQkfYv2 NfVjBRD8QfM8QLt1fHqfZB AwmQm9JIAoRCK8TPD0PSm9 uNsdLpXviLogJDJ5PBerNE UnYMKMLlSTR7ZHIVPwOuNP VkUgTEVBRkxFVFMsIEVYQ0 yXUE9YTUuTV1MsTJ0FRWqC SHTIYXCJEBLDRWvDS6DKCT 5UKTpccGFyICAgICAgLSBW QUxWVUxBUiBUSVNTVUUgV0 vRJQZNJAqOGSKwZNMGPT5V RkPBDX3OBCDNP4BQRZMVXW VSLNBTDwiKJDTVW11IEKAn sdKlUPJjFFLsCZ3MYJHUTi OLP1rTVVVAO74CCBXYQU7F FRfFPNseC9VQH0dVJXGaXI 3UQDmESOEXXN6WD4dBQomy HBAkdTJbFHgep3tiBRH1yE HqvywtZIZcuCSbVHa9iJbn IEr3rBS7BQLbsLrkXXQlZH R2Tdo2OKx6fQX4LOIqvHr9 EgBiFCY9CZA6VNw5rUB4Cd LrsBp8GCqvHPJ5TlKyKVk1 lYd6XhZawEw5JlTgZFM6GZ F9PWc3tCKyXBwmJGWaAL0N VFJBTCBWQUxWRSBMRUFGTE QOIpeqKQqLYGSJM58dLNLd UCBNSVRSQUwgVkFMVkUgUk MWEHIDOY1DFmMaFsbnFQDh ICAgICAtIFZBTFZVTEFSIF WJE0IZOVZECTYZME7QRJ8N FJWTJVmICpQEKXIWR80kYA 7YZQKNHtSLO9iFNNGYJ78P VAPNNI4TUTXuayNdGTViRA IfK2gETQXZFKYXNSvhUsTH WwGuG2ETRm8LGSFbZJXtcf aoKCIgZK5hl9jvD6EbnIXj XGIwXGNmMFxwYXJcZnMyMi WQd1NcmXelP86pdtFnnVff TUQgIDYvMjAvMjAyMyAgOT a1AUEUDLeyHIGxWmDcWMsl TEZ5s3gabSGtFBCciKDtTr GeNOJbAFMfe4zzOVUqfCDp ZzEwMzNcZnRuYmpcdWMxXG MyYrRwg8pih522uUGjw1il JZBkUhI2xAWbLEXzfHjeap t6iGpgYaEjTWPwv0sohoQf ZmNoYXJzZXQwIEFyaWFsO3 64CTMgEDjes1ybd6HeBQZf aSDoh9O8OINZXLlcEqKnJ6 03x1cbo6ttsaLeiDV0CBJc XDN6DZpfacHfveU2SRitaR DdFfE1ITlyezOaGXfovdTf huBhVma9DPOyN467LAW8jI omq3rsIIN9RRUoFRXaHeir Xq6dbIAqG317NZPcOOZHBG RdqXt9YFXzweTehlWrtSWI z886D146x1wiQNZpanIprI qJvennr2wjM026ETMxjTEn dhCqFbIdFUFwiZWkpZB9AF UoRJ8sssjmCBvqMLxsBQJb nrN8JGPcpRXvB7YkHYWhXX 5uxvfkKYT4ZJgcLVFcEUZ3 UdUcESIoa3Adasp8JcJopv 1cny50JEN1f5ZxcPlxKZC9 UWE7IaVvKg3kwKQlUIKoEC 3cZeQvuSMkUREvuo98wMsc CRspufSyjS5eKpRiICKdkS RcYEFjBJ2ieMVpZQScqT8r cmxjXHBnYnJkcmhlYWRccG antiVyXx0hsBdxKVX2LLbh J9blzW5nOeD4QFvgS6hreC 3fWKn6IAtzmPP3JQLiyW1o VF9erslxx7icIGhyUXdkDG UckxS3sbR5YXVbfMBaX5Ts uR3qTESnWT3agdvxi6utOQ O7SSfdVMWzMVY1CrLqOOEp l2Bdyop5JlOjr9QppASnGV jzW93ed065YMGldlFdZ0gz bGFpblxwbGFpblxmMFxmcz J5RKRhGYJtLWsmHNMjTEMa MjBcbGFuZzEwMzNcaGljaF maOZidZsQiAGMtHUxlT7pz HwKdJ0NbUVIbCnYvwYMaCX phyPD1ZLIcFSXsj20tgOj6 FWXwtdiip6WyGXOwpSWcnH KrmG4hbeUzx2vmAQCjYMAs JUPsW0NlHDJ7sGZvSJPmgK KrbLX2BL1jroXoHC1aNIGc YnkgcmVzaWRlbnRzLCBmZW oki2enJQ3zGLSbzSyprT5t pVH7WSUbp9prxNTazBGcv3 oxn0EotlYnDSvsNJEbVIus FTXeGMQiDS6sGOIytHIksi Eku9X1XxsvgRSbvzhrGexy gmZ1ZFawnypzESGdNHkmC1 rjGhSvJTYizGdfHclou7Wv XGYyXGZzMjhccGFyfX0= Clinical Information (test code = [id number]) Mitral valve stenosis, unspecified etiology [I05.0]Aortic valve stenosis, etiology of cardiac valve disease unspecified [I35.0]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 [I25.10] Gross Description (test code = [id number]) m1idmVTkZIKtnUFGTIRnYP VhOT4ktEpsbNa5fNegIYBx xyF7qMHzJWots3nuNLK9d5 oaaoMSMkkzLFGeJA4hRYox VKItCL8yLgTzACTcShWeLL BhcGVydzEyMjQwXHBhcGVy mJP9BDJiKX2opdnbYGjeTC eaPVBjjcC4FTAuiIXcD8Pl HXWhBU2smqmhHZD8SHPAKt jpNk5czLHiiDpdLdAvIcWz YXJzZXQwXGZuaWwgQXJpYW w9pL4UYatzHFP3KYLMKupg WeieaBntf5OwbEKaLZIdDI xcaWQgNTEwMDAgXFxkYiBP BiAqBjM3AlBdKsG0OrM0XA z7LBIBRKPhIqb4CNLcTBC6 AUw1LDHzMV3dTKcwqTWnOP hrObleVUuyB863ZTfwIJZr B4ZqM8QeXZsrUkSwJRgcEQ PjFAQxBFzaNSFfM6IEXDXd MqgnQCTrLMKdWTd3BDgxG5 AKRPCoKBCvTmX8AeC0AcW1 UNq7VWHYXp7vZSojOKurXU BoKFR6DAq3VGZtTYKuGcPl CKLtPPTwBHgngRPoUS0kpF tqYBCfRN6GHSRlMMkrLZQl AwLsM2DWK2qONW7vAEjiLO IgDQpccGFyZCANClxwbGFp kmcrdiYgIFb6vtTbZHIvWw CgGBEhF24vs0JFe7MeYH1M WIb1gmHiiznxgH1lCDYpsc Idl1VqGXltvPlmXFQhXhYv ASfCrWAbhU6xxuNFBIaeSP PeS0CdvcSkFYUcGQPdSSgr CtIjPVGux4n0zUP7oIGxsF L9hBCfpGszWM6ymWPkCJCV KT33zSGgzqpuEkGhxtNpBx X8SMp6GLIyKNMsaIP8kgOg AP0kQNVqyzXay6BrMU8yEN UqtJTfQIlgyNqgqhHbqe48 xIYzFFsslHKpkLJ7ZAh6ZZ KmNl35ESqxMa99WGhnQY35 QRIpMU4hTLdcGDNvZGHnvX PdHEidWWWxkngwgZu5FWAd M8Eif45gMDR9loGzNHSmMF wgdGFuLXllbGxvdywgdmFy aWVnYXRlZCwgcnViYmVyeS InrPWue0HzRgCtRYTei9m2 jM60cVNkYDveqDPsQ3P2oN 4hZyNmP8Mrq2GlrTPnpZUe bVBnnI50o9gmMPVaveOskk BgvTZlPB2pNDTGDZMnKZMl jsSuuAm4OBViPTV9sJ8xxx GoeiFcl2XuwOe2pJDmBNfr DNBqAu9YLFWwhOEHQFE9KB 6zEFmySYAoD9IiO6WnrsS5 XHBhciANCntcKlxlcGljc2 VjdCBcXHNnIFxcaWQgNTEw DEDtPVniPbGNCrYqVvF4Rl CtPwJ7GuA8IJw1TYMPQiTu EyOjUaR7SOXpUQMkTUt8ZX m3LSoNMnHzPZUnKNO5Pad6 IZJ6BTkwHRtlkIJjREanr0 GjQgJsPRGqVFwfjyI5FPHa asYov6UjXSKxHDHjB3ubAk EwNSANClxmczIwIFNQRUNJ LBBNYVAljXBfMT9LHFXgfk TmPVoahTtkpC5iiUToV9iv ZnMyMFxmczIyXGVwaWNOZX X3GD1gRFFWXptsbCSpPLDv yOmdUFouaI8dNSQkKvBlZM ZlG9qvKpQrSI8DJ4WvS6ro NT7rDEKqevWeAAPaiMGbEL BmcmVzaCBsYWJlbGVkIHdp dGggdGhlIHBhdGllbnQncy AtYG4hCVKQKVDlyW2uYKEr ICJtaXRyYWwgdmFsdmUgbG QkLyxkpRVcNTPvXSRso51m cRC1ozHxYdEepVz1jZKxRN V2LZ9sqONnmM56PBejegUb dWxhciwgdHJhYmVjdWxhdG RkUGYaScQaoWrkj8BtFCJn FHgkIQ75mzOmyyWlI0rmLn Ramu6aQMQsYTZ5wrOtOvZt C55lrH5gC3ZbLHFgk4LbPY atQG2wdH0eJOOyJfYfuFDd NsNpmQLgTnquJ56vpX7bOG odwvDeDNNuRN9nRDhtJKFr ZWNpbWVuIGlzIHNlcmlhbG z2OLIrN9Byj01tGDJ0pzQx ZXZlYWwgdGFuLXllbGxvdy wgdmFyaWVnYXRlZCwgcnVi VoUbrQXnxPYfd1XpQkGbPZ Syf8r6gC86lLBnMZpbsOMr E6L6nT3nJmFNFUUiZRGure JubGm7XGHhQSN9sQ8sqiOz PsAcJDPoHATaHYkrZA61CN NxFKGloPOyuRM4GRPcqE7a QjEtQjIuXHBhciANClxzYj JgBPViT5vzHhVyCPfxoYGu PG8THNQqElUpTKGtU5dpIX KnPZ8IZWRxnXDGJAksy8Db IGdcKSXlPZODK7FlLCpbCP FoJ63ha1UGk1Khq3dhrYme m0GmzWAtKU63XUDirEKjDX X5TL9ktKmzWRLlPEtkxRCx ZCANCn0= Disclaimer (test code = [id number]) x2xrvRMvPCPcd0sbVPMajN FuZzEwMzNcZnRuYmpcdWMx CCuqpkSoTXbqb4UdK9KcDf AwMFxhbnNpXGRlZmxhbmcx ODLpIZJ0jiOdPACmVUcfBF FrIOxjAl6odNQaiSskQjPc KSEho6oacgVOOFnnRyXkG1 56WHWfVXyku3qge1ZhZRIx gVIge6I7YPXYyjwssEo2pB eaJ45lz6G1NwesA9esKOXb SRIxA0ZiHS0tNDHcPhq4OZ V4LBK6RKVuOUFiZ9TiJS1d MABifEDvCFk4g6hxwUkjZO YeTNS3f2iwYDetzpSaPV9u wa1rgGy7a0ofxnOvCEZvZF SpdOLGOPRfG3CvkZhtKp6i uAh0mQueEskgLKG5Ysl6UI 2vsy31uud9aXpqOTGhwsgd FyE4XJqxOURtumocEPy7GZ daWDAhiUP5BGUisUQqD9Tf XDJsIU3kewv7OZA5UFsqIW OwTzS4QALgjNRcEKLxvCmy IOucg195UMO1VxWaIG7oE2 Iak9U3mA9axLBaSDVgpAFt CtAqVSBwgm4iuFLpFRrdh4 YuRWD4mhG5fQQhuJBmTRCe KR49Pewyy8GfBicoa9UyC7 4seFY1FUcwu3ywBS8cMhN8 apMeMPhvj5xijQ0oPtZ1WX tdXH2cOH8tDQEecL4dwwjp XHBnYnJkcmhlYWRccGdicm YaRz5oxKosYXF9JWwcQ2uj uI5bYeY6GQdyH8zcnP9tSI y7PZpufJG0VQImdZ5zMD8e hgrgz5buZNaoOWrzTUZmae T5clD5UGPexRIfJ8RdyB5m CHLzRN1xacofb3viOFR8WG ukKVDdDOO1PyDxBJQpp5Yp jho5VtLho7EjgCWtTRhyV3 9vp909ULLkxgIdK5tynEUd fcdbcNFddxazYRptwmA2MQ LlbfKlx8UeRFHaWLC1WHhi BKohtHOnFMIsfAucp7fcW8 RscGFyXHBsYWluXGYxXGZz MjBcbGFuZzEwMzNcaGljaF faARbnVgOnKFTpLMliH8me NpLgE2UrXKLpMaUafFXgV4 ggVGhpcyByZXBvcnQgbWF5 BKsiE6j0GWIffmXgcTk6ip DiUvHmQRZlYFZ8EWgdoUSv GALpz1MtvispjHLvEf3nnM McAZEduX9qLATaNWBtVQfp VU4siGv4HXBZjJAfcPBmLq PLCNLdXQ04lpXfOKQSxyrp d2Z7STigQJUpq4KjgOQaN1 glf8CfRXRfz43uWP8vi3I7 m0jnMUW3FN5st5UpVITqdS XtxMPfMYTbn1Wjzezqu5Ki XTSsqzKdj7VxZJUhovZuoX GiJTSxtwLmmg4aarFqOWHe BORxO4EwuvjqlDxopsNqWO Nfzq8fivChEZC4JCXAWLOf MHZeb4UqlC1raFFTLFC1bX Fxun8rtfRKxFCdVHEsgq20 HBQaSJ8rI8vfWPTmAHVofy SccXIsf4KoKCYrdYJ5aAJu NQ6PZvGNd03xHGQlURANaa IgGSIuhBcljDT9izL6rA6v IChGREEpLlx+IFRoZSBGRE SaOH9qdgCse8GactZlmIer YFFvsZCar8PynJKdt3TogY yxp3TvfZAjoQMyPW2hSADk clxwYXIgVVRNQiBMYWJvcm N5a9DnUVDfGHImHIN8jLlp rty4WJOpwJ6vGDHyE4lkxr hqJUrmYJEvg6SxaF4oeCPY mNQuc0KlpORolXGRhBZxFB 3immRqPGrYWHtFVRY1vhQv VQGeq3MqCYkgS3xfC35ppP uutTu2eZU6TXS7tM0xLgg+ IFxwYXJccGFyIEFwcHJvcH WxLKVsoFxekaBbM9EtdfZi hK1kcKMijxPoUO4kCW0nI0 B9qIQeBGLbzoHxv1evKCby dmUgYmVlbiByZXZpZXdlZC Dyp2YvOMuaJHC3VQlpkmYu bmNsdWRpbmcgSCZFLCBTcG HcnINqELU5DJgswsEvmmOg VI7alX4zjEkloN3vwSOqoB B9xzuwMKOsBQXzeOsrQBVq AP1pbYLiXKWaijOPmJualV OqsQ4yC2ApEULnPKOgvy0a OGWojX1tTUjqb0OthskqAB TdKWYmHHLuruBhrc1aYAXw nBPVJV8HJPnwcIAgq9Ljpm AfV3zPCFW8ZMPmOqNcIbhu WDUatZEacGHrKAEtvi81FY YmtV4jeViqUPEnqH1otZ9j iTvbrE1oAiZiPdHwFTpvTO 9gKLJvD4tcaSMhUZQcZTTu U2uiLnEswU3ifHcnFQqzGj AkNoVpZPfyMBY1cR== Embedded Images (test code = [id number]) [facility] [id number] 15:24:20* Test Item Value Reference Range Interpretation Comme nts Case Report (test code = [id number]) Surgical Pathology ?Case: [id number] ? Authorizing Provider: ?Burke Long MD ?Collected: ? 02/13/2023 1218 ?Ordering Location: ? ? [facility] OR ? Received: ?02/14/2023822 ? Department ? Pathologist: ? He Armstrong MD ?Specimens: ? A) - AORTIC VALVE, AORTIC VALVE LEAFLETS ? B) - MITRAL VALVE, MITRAL VALVE LEAFLETS ? Final Diagnosis (test code = [id number]) [id number] FuZzEwMzNcZnRuYmpcdWMx IHtccnRmMVxlcGljMTAyMD ueb0hzb5iwmYMuEINda1af v5YpaFNvdLGiLRzooJWjbh Xhna84uIZ4qH13SY1nAQMa IjQ6JWCbygU3Ocg7FNUeXE IejOVmN228h5ubo3ysidUe gTI4UTBoBLVdN5NrGX2vXC BonESeH13nnHKzILP2LVSt OGSbbGQeLMUhXMX9NSFufK UuV2jsBQZcKE2dvpfsNYci GDzoWNDtuAE0UOYknXSgQ7 FxLPJhODsmKXWwdve6VjTa Ql5yoWRjuBqaEKfsXPEyTQ 3sa8hjD8FgcAPtLZDjFWbq XGZzMjBccGFyXHBhcmRcdH p7GjTswYbxDNQtZVH5RzN3 QPo6lZH9AKOgjOyjRzDkSF B2SEOdWQr9zYIdJPYklKf3 DeZuESA9WqP4QEf3hEpmCL WehTf0ABBpUCP5KWZ8TKw0 jJmlFdNztLswUFE3DQfmIN MnCMBFMzEBP1CCMARsCjTT VkUgTEVBRkxFVFMsIEVYQ0 vTPT3GUEeAO2MrFT5NTHgO UFZDZSYAJEUMLDbWC6NXLP 5UKTpccGFyICAgICAgLSBW QUxWVUxBUiBUSVNTVUUgV0 yFIBKOKKjALNVjQKALKO2D PgDGAE9ZQDZEB7YRKMWBCN RYTNDPUblVCNDXC46NJMHo rjIjZRDdAVNjLF0JENGQAg NCD0aSAMKJX86ECWSLCL8G HWxYZTpkG3PVL4sXMKJcIW 5PWIjYZYCQEU0TF8yJVhgc IAWzsMBpRIkxq7dyBTV9tV OvcgamRNZpkRCaJDg9iMvj KKt8bAG6VZYffYixCWYrYU Q0Sbt3RKa0gOO8UWMdlXs5 RhApXYI5UIJ6WHx8fSY1Tp CjtWp7ZCkkFSQ3LmVeMOk6 xHc6ZqWdrNk9WjSmRED7SG X5BHf3lBQbVKikFRHhAX8J VFJBTCBWQUxWRSBMRUFGTE IGFbvvOKkKOAYGD11jOAPp UCBNSVRSQUwgVkFMVkUgUk BXCBAXLN0GAsFrNwsuLTNq ICAgICAtIFZBTFZVTEFSIF JAW6SZFFXTMPFEFC7HWN8P PACFRIpVMsNAPEFJE94rCY 1BXICZIkEDN5pKEIJZQ79F MQBEJD1NQSYcnfCyPLSyNO GcP0iFLBZIMFPLUUzeOdLZ ZmBgZ4MCCs5HXYEcABRipw brGTWvQZ5lo8hvK4SaxDSo XGIwXGNmMFxwYXJcZnMyMi TAr8FloHcoW03mlcCnaJpc TUQgIDYvMjAvMjAyMyAgOT v2TEWGYLxfTCUoXlDmCWsc HYZ1w1rvaXJpWJCbyXOqIu AeWRJrRMTpi0uiWDVfbJMl ZzEwMzNcZnRuYmpcdWMxXG GvQqLvk8obf148fSQfa3bp GCCyLoE5hJMqWHAanOgjbu u8lUggFcAoSIHvj6ijrfZw ZmNoYXJzZXQwIEFyaWFsO3 25RXXxPOomg4zlp3LhFEWk aCJai4X8BYAKMWbfEyXqS5 30g2rso5bddaOzcVB5XPQt GLK1FQxrxnNomlQ1ZFfpjW RnOtD5FTnxxsLqSHyitlFk loShShm0MUUuX005XZX6iO cgn3xfJCB7SHUfXUSeThhy Bs4uzXEjW904FUPjNYAYQL XvvFg4RKBvyjNafgMlfASC j859X328l4ajWDMnmyPcpK mRmizly2elM718PRSblENr rlGjOhZdIKVpuHYokGV8BV XkVG0hafozOGakUWkwDKMw oqL4LFLycMNtJ5GhLZYgUP 6uroigMHS2QNgyAAWvYKV2 PcPoIMEdg4Uvzsf1PuNfem 2xub21CXU7u1AplFtqUTY8 FRM9YxRoGr2xkYJwLOViIB 1qBwUjmVGaSOXhwf20aKoj GZspboJafY9xMuHdHWYemF DwVNQaAY1gwGWnNLHeyP3g cmxjXHBnYnJkcmhlYWRccG geklMxAv9uaIwhPEI7LTkv J0upjG2oEtK7AXkaM8vzkP 6mWWy7JDbnhEO7ZTZxjJ5g ZQ9vgziey7amKYlzHGvcBL DmxyU6zlS5IRYjhHSuW0Mz vJ8cIMAhFY9qutkpl7xdPO U6MHbmLCBcADZ1VfOiYLIv k3Eccjk7LyNnl2GsxTFfLH kbE82mi514AESgmmQcX8ke bGFpblxwbGFpblxmMFxmcz U4GIJaORAuAHlvFVZyWGPe MjBcbGFuZzEwMzNcaGljaF gpRKzzHxWjFWBjIDdmY2nh IuWpZ8PjSOMlZnQboFOcGQ gbrZZ1ESWcLHCud48meMj6 CQOaodjxp8QuQVSfyZMccF YijZ9wpqLbf3nmSOJuRPHt ELZuL7ChZQP0xKEnYHEnrS EgqBH0QG9rhaPfRX4qZZAn YnkgcmVzaWRlbnRzLCBmZW wis6nnOI0nFGIllNfssL4q jZJ5IMCxs6lrrHNltXMaz1 fzp5BniuPmLVfoPAZsIAuf YPKdSXCjME2sIKJhyRByvb Hca1V8SncxoJSfnxnrBahd cpY5JGluhdoyTYVzOWxzD3 eyGvIjDAZvfRtpPxewi8Wt XGYyXGZzMjhccGFyfX0= Clinical Information (test code = 7910870680) Mitral valve stenosis, unspecified etiology [I05.0]Aortic valve stenosis, etiology of cardiac valve disease unspecified [I35.0]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 [I25.10] Gross Description (test code = 4199759586) q7csiMHfTBAzrXXMUMHqJX WjLK8crAfluEo2rKgoHVBj ieL0dBYcVRwck5ufPFE1p6 xyqbFXOtiiQEYuFB6wNPos ZZMtBD7fMoFcKYLbYuPsGO BhcGVydzEyMjQwXHBhcGVy bDN3AHLjPD7fsdhwWGxuKL daWQLhxkU3TXKmsMIzG0Ey YDXdUB2jctylOVG6MRWDKx qpVa6hgIWntJpiQhJgJaAc YXJzZXQwXGZuaWwgQXJpYW h0tN3JQksoYGR5IHISQbsv EnsmhRcpp7KfzOXsYFBuGW xcaWQgNTEwMDAgXFxkYiBP QgSfJnQ8KbKgUpI0NwS5BC w6GPCTPUWnQrg5JQGmLNZ6 KPi7QYZxHJ4cQAvpfQLoVT mrIhhqBUwaB562NGkqACNz F8AyR2IuOLwgRjZiGIanUJ QrAMDiVUjkCOSrM7USBCHn BifrWFPyVMGiINf1KBlhV5 XZOSIkMCJhJlR0QyE1PrR1 BSj8NBHHFe0yHPlwZLbbIN IdIHA7WDi2MVEeJGKfLyTp TMSzGEIcBFpnzFUeHF8egF aeJPOpIS8OCJQyFWmkGAZq PgKdL0DQI9vXPC1vOZodJE IgDQpccGFyZCANClxwbGFp cgxllrOpRVd5llGjDGJtRa KlVXKaO42va0ZMf2TgGA4B PPi4bqPviisnwZ9wWWGkiz Los4EmUHdyeWfoNMNhAiQv KJkByRHzrO3uaeIJDBovRP PxF3PziuTzSSZbLEFrRNkm MuXeXBGka5v7dJT4rJEvmP I1cWPzpSfkSS6muAWsRDHQ RL34qDIcwrbzFaLcmxJjIc K9YGh6OEAeQUHfkWP3mcSg IM3jJUOzeqQmc1GmHP9oID PuoLAlNBcwjIdzjtYudx00 fWYlOAcvoQFazRB5KBp9YR AePk52YHtvPf60WKssJX67 EBSmKY9pBNakSVCtNQMrdS GfOZcqPLMlfnuikRk6PGIm C8Kps15uNMX3ddGbTVFoYN wgdGFuLXllbGxvdywgdmFy aWVnYXRlZCwgcnViYmVyeS HqlRYdf6GmWpGlBCTvx1z3 aS41gCTbGYkjoQKnF9X4nI 2cFkKgK2Tva3SshJYudTZo iNJrfW49j5uwUFHeyjMkos ItqJWiXG3eSFIWQJRgGKSg ufZtpUa7CWIiMJE5gQ1bmc FnezUpv2BxeGr2bZShUEsp QFPuBb9BHVGlpEFQBEQ6FY 4oTKntGAFoB3IjB6RavaU9 XHBhciANCntcKlxlcGljc2 VjdCBcXHNnIFxcaWQgNTEw TJQsKKgdGcILOwMiHvB1Wy IeZdX8DdB1EPu6ZLVOCsYt VxIjDoP0QOQnGBWnGOe2ZD m8LEvWTnOhLVOtZDY3Iyf2 STS2WLugJJsypQQxSQtxl8 FeZdAcDEFwXKnscgL4LMJb udVba6XtZFYkIYBwZ0ifYe EwNSANClxmczIwIFNQRUNJ PWAZYUMftDCnGV6YLHCflb AzDLdheJtsmQ8xtQUeH6qk ZnMyMFxmczIyXGVwaWNOZX J6XN3iFIVCDzppxAPeGPLh zAcbGByiyZ4jOFYuBcJiUP SeK3zzRsQcZG7XT7DrN3xk CR1fWUKsloXjIUUhrSFrTM BmcmVzaCBsYWJlbGVkIHdp dGggdGhlIHBhdGllbnQncy SaBT2vTSNNVDCbiP2kAOAh ICJtaXRyYWwgdmFsdmUgbG DmSnzsoHRsFNFpMHFhk98t kZY7wnJeMiWlgFr7kQLjVD M9EQ1vbBZvmL81IZblhtWg dWxhciwgdHJhYmVjdWxhdG VeLNVaAdNexBlde5NlGMCq AUcoPE45dhBgksWkX2naXc Xond0lQVDvNWU6kqPcFsNh X08rzQ4lM4WdUQKuu8DtJH bvWA8ocY4wOFGrTfBisJNq MsUcmVXtOxnvT64hvV4nKY mjvoLfHAElSV1uTBzfTTZn ZWNpbWVuIGlzIHNlcmlhbG a8DPXhG6Kqp83wRTB9lcOh ZXZlYWwgdGFuLXllbGxvdy wgdmFyaWVnYXRlZCwgcnVi IaLlbIJzaLFle4ArNgLrGF Rgm1p1wA26yXPgMFbopFMd A1J7kH2tFqDQOBAqNALjhz FmkEm1ECIpXAL6yS5pbqFv BrXrTOUrCYNwTUlrGC01UY GcXJVdfECgvBD9SLHteF4g QjEtQjIuXHBhciANClxzYj BnXGQyM2xtBpGmLVtomGGf CD7LTKXzVhTuWOIjE2nzJL ZeCG0PGFKomHQMVFddp3Ce GNnhUSOfGNGVL7PvQNpgUD JuU60mo2SCq3Vry7xueHbu g6ElsMDpVJ03NGQbsUXrUG A3FF4oxSdzUUMzCJycgZQl ZCANCn0= Disclaimer (test code = [id number]) w9oejSMgKPAuu8arOAMqlT FuZzEwMzNcZnRuYmpcdWMx NOxhovQjDRwmt7UoU6KaDk AwMFxhbnNpXGRlZmxhbmcx YDBqYQG6njSdLRLgNSkaMH RuZIkxBd4lgVObwXxwCtHe UEVyg0dghvURAJxrIhUzH8 60CHCgODyku5pbo9SzKCKk yHTuy8K4BOFGbhstzGq8rS cdE07sf6T6LwvlD9qqKUUe VPQvC2UeUR1jFMWuBmh8WC A7CVT0GXFaFXLxB2ItJA7q KMNjdNBdMHn4e8zcmNlcTZ MoTLP8a7phWOlxsqEnNV0a qq3grHx6i7vkokOjQFZbBG ZxvWHYFCJmA6ZwgCatRr2u wJj2yBzxMxxxIWW8Obd8RP 5kgr39bxw5iZbkSBQfrzch XlH9PCtbDESklxyoYFo9IE zdKQYheUN3RZYxuHDuR7Ez HQEzWV9yiub0FLC4SYqgRS CvStE6VBInqIOpLHGgbPkd UWvji468IWW6ZhNaVS3jE8 Pem3C0pR6bkBTzEBRkgXIt NiFkLPCjgv1wmYJcVIejk3 KcUFY6udF9hHPdxLPiLKUu JH25Cywhm6HvFyota7JcM2 9ymWU2KElno8qsTM0pEhE9 buDgZTjsg1swdU1jIkC0CV agVE2bVT7yTBSwuQ6pzxgx XHBnYnJkcmhlYWRccGdicm KyIs1mpBdyOYP6QVirW7lo xV3iUvH6VMiuW2fotX5lEP n6MUopwSX2ZOVvfL9sFM1c nntwn4apSNfnXMuvYWPqmo U6ixZ3KEHgvUAbD0PiyS5k YBZaID3nypemy3cqCMF4PQ eeFZOcQIX2HsRyHUYxg7Wo jtq1KgNuq9KgjETyVTkwL7 6in535KFWvgeZuG4uasSYl wkiitRZxqtsxGQnywfL3RV NjntWti1OvLKYhZBS9WEiq XKmcsACtHENjvAmds3qrM3 RscGFyXHBsYWluXGYxXGZz MjBcbGFuZzEwMzNcaGljaF mmWKrwTwYlTSHcWWvsM8hj CqJeC1LpXASdVcVviGWoE9 ggVGhpcyByZXBvcnQgbWF5 ZHyiC5d0ABCyweCbcBf8jt UmWkDlWSGxYXL4GNbciGWd IMGku2GwoprxcQEdFv8mdX LnGCFttC5aKOJtBJIsRRpn TD8dpSa3TRIJhRRpfCJmDm ETQPYmOL30wmJjSRVJsvpn i0Q9JBgqPEAoa7CvzVBeQ5 ifx8MtPUGyt99aTN4mv4G3 t7nvWTU4VZ3zr7TeAPSpyR OwuJJtIHNdp9Dmxxcud4Oc CAReibTtg5AuCDInawZhkN YjPSSvbuAdql7gpdHdFYOg CYEkF9EtacqzcZqwhtUtFH Kwmo6pksFgGET7ZQKWQOEs ZOUhq7UowA1grKQGESQ0hS Lpbm6yavBIqLTtFISkko55 PTJnCL8pA5pdFLTjVIFfts EptCYjs3MgADRduOT5zSLt KV3PRdJYq27oERXrYSXCya FrIWMjlYbaqGL3nhA2wZ1a IChGREEpLlx+IFRoZSBGRE KtGK4yewAis8XcypAnlHxs MAYzkYQhb1GbtDJeq1WvlX wml7AnxQMnvVAnQT1yHPWw clxwYXIgVVRNQiBMYWJvcm S1l1UvCXOvVDYpHUC8xAip lkx4RNGafK1iMLGvG6dzho hrWNwxNPIbr5JqqS9ulLIW jPJsc0MuqTIdtBDCvLDcHY 2lbqDgRLzCAMuHULJ4yhYz RCDse9TqXQsjT5fpQ84lsW jrmGa4iII4MKN2oT9aEiq+ IFxwYXJccGFyIEFwcHJvcH NsCYXxxJbghnZoE3OzqfLp tH5wnINjgyKlUQ9zIY5eG8 Q9eUOkHBYqtxTyw9fsRHcx dmUgYmVlbiByZXZpZXdlZC Pye0KvGRceVMA0KVfkeuWp bmNsdWRpbmcgSCZFLCBTcG SvhZOgEAE7RHmnguOvdjCz YI7rdW8qoDqvyT5jmANoaE Y8amusGXZcPTIdxZehANIf JS3yeLKgFVTrmsBOqZbfbW HkbB6jY8ZzDDVhPDUczn2m FFDsvD8iQYgwm5YqapysNZ VvMFUiTGKkoeIsdr2xHNBd zPTACU0KXHlqfAQlg4Jrag PkE6wOAZX7NAPdXdJuNcfj FMTwrEZymJWoTNEbjh59FT TewT9fxXmsYWBufV2ihF1v yPrasB5lLcKjWvPaGTdlEQ 7hYHUsU5wteMKnLLAkUYJt W4heHdUiyG1vmTwyCVsfJn IcWzBxKIalAUG9tI== Embedded Images (test code = [id number]) [facility] GLUCOSE (AUTOMATED)2023-02-19 12:31:08* Test Item Value Reference Range Interpretation Comme nts POCT GLU (test code = 6854962781) 142 mg/dL 70-110 H Lab Interpretation (test cod e = 51849-7) Abnormal [facility] GLUCOSE (AUTOMATED)2023-02-19 12:31:08* Test Item Value Reference Range Interpretation Comme nts POCT GLU (test code = 7718710783) 142 mg/dL 70-110 H Lab Interpretation (test cod e = 09832-4) Abnormal [facility] GLUCOSE (AUTOMATED)2023-02-19 11:10:40* Test Item Value Reference Range Interpretation Comme nts POCT GLU (test code = 7406243954) 164 mg/dL 70-110 H Lab Interpretation (test cod e = 22699-1) Abnormal [facility] GLUCOSE (AUTOMATED)2023-02-19 11:10:40* Test Item Value Reference Range Interpretation Comme nts POCT GLU (test code = 8756653736) 164 mg/dL 70-110 H Lab Interpretation (test cod e = 11366-8) Abnormal [facility] GLUCOSE (AUTOMATED)2023-02-19 10:48:42* Test Item Value Reference Range Interpretation Comme nts POCT GLU (test code = 2714165759) 89 mg/dL 70-110 Lab Interpretation (test cod e = 10492-5) Normal [facility] GLUCOSE (AUTOMATED)2023-02-19 10:48:42* Test Item Value Reference Range Interpretation Comme nts POCT GLU (test code = 1687146103) 89 mg/dL 70-110 Lab Interpretation (test cod e = 06125-3) Normal [facility] WITH [id number] 09:22:41* Test Item Value Reference Range Interpretation Comme nts WBC (test code = 6690-2) 14.64 See_Comment H [Automated messa ge] The system which generated this result transmitted reference range: 4.20 - 10.70 10*3/?L. The reference range was not used to interpret this result as normal/abnormal. RBC (test code = 789-8) 2.55 See_Comment L [Automated messa ge] The system which generated this result transmitted reference range: 4.26 - 5.52 10*6/?L. The reference range was not used to interpret this result as normal/abnormal. HGB (test code = 718-7) 7.8 g/dL 12.2-16.4 L HCT (test code = 4544-3) 23.7 % 38.4-49.3 L MCV (test code = 787-2) 92.9 fL 81.7-95.6 MCH (test code = 785-6) 30.6 pg 26.1-32.7 MCHC (test code = 786-4) 32.9 g/dL 31.2-35.0 RDW-SD (test code = 08661-7) 52.1 fL 38.5-51.6 H RDW-CV (test code = 788-0) 15.8 % 12.1-15.4 H PLT (test code = 777-3) 46 See_Comment LL [Automated [employer]] The system which generated this result transmitted reference range: 150 - 328 10*3/?L. The reference range was not used to interpret this result as normal/abnormal. MPV (test code = 19390-0) 12.7 fL 9.8-13.0 IPF % (test code = 9052833098) 20.6 % 1.2-10.7 H Platelet count measured by fluorescence method. NRBC/100 WBC (test code = 3448227762) 0.8 See_Comment [Automated [employer] ssage] The system which generated this result transmitted reference range: 0.0 - 10.0 /100 WBCs. The reference range was not used to interpret this result as normal/abnormal. NRBC x10^3 (test code = 0846235920) 0.12 See_Comment [Automated [employer]] The system which generated this result transmitted reference range: 10*3/?L. The reference range was not used to interpret this result as normal/abnormal. GRAN MAT (NEUT) % (test code = 770-8) 82.1 % IMM GRAN % (test code = 7946546263) 1.70 % LYMPH % (test code = 736-9) 7.2 % MONO % (test code = 5905-5) 6.8 % EOS % (test code = 713-8) 2.0 % BASO % (test code = 706-2) 0.2 % GRAN MAT x10^3(ANC) (test code = 7456120852) 12.01 10*3/uL 1.99-6.95 H IMM GRAN x10^3 (test code = 3303220511) 0.25 10*3/uL 0.00-0.06 H LYMPH x10^3 (test code = 731-0) 1.06 10*3/uL 1.09-3.23 L MONO x10^3 (test code = 742-7) 1.00 10*3/uL 0.36-1.02 EOS x10^3 (test code = 711-2) 0.29 10*3/uL 0.06-0.53 BASO x10^3 (test code = 704-7) 0.03 10*3/uL 0.01-0.09 BRADLEY CELLS (test code = 7790-9) 2+ See_Comment A [Automated messa ge] The system which generated this result transmitted reference range: (none). The reference range was not used to interpret this result as normal/abnormal. POLYCHROMASIA (test code = 70732-8) 2+ See_Comment [Automated messa ge] The system which generated this result transmitted reference range: 2+. The reference range was not used to interpret this result as normal/abnormal. GIANT PLATELETS (test code = 5908-9) Present See_Comment A [Automated messa ge] The system which generated this result transmitted reference range: (none). The reference range was not used to interpret this result as normal/abnormal. Lab Interpretation (test code = 60532-2) Abnormal [facility] WITH [id number] 09:22:41* Test Item Value Reference Range Interpretation Comme nts WBC (test code = 6690-2) 14.64 See_Comment H [Automated messa ge] The system which generated this result transmitted reference range: 4.20 - 10.70 10*3/?L. The reference range was not used to interpret this result as normal/abnormal. RBC (test code = 789-8) 2.55 See_Comment L [Automated messa ge] The system which generated this result transmitted reference range: 4.26 - 5.52 10*6/?L. The reference range was not used to interpret this result as normal/abnormal. HGB (test code = 718-7) 7.8 g/dL 12.2-16.4 L HCT (test code = 4544-3) 23.7 % 38.4-49.3 L MCV (test code = 787-2) 92.9 fL 81.7-95.6 MCH (test code = 785-6) 30.6 pg 26.1-32.7 MCHC (test code = 786-4) 32.9 g/dL 31.2-35.0 RDW-SD (test code = 19755-0) 52.1 fL 38.5-51.6 H RDW-CV (test code = 788-0) 15.8 % 12.1-15.4 H PLT (test code = 777-3) 46 See_Comment LL [Automated [employer]] The system which generated this result transmitted reference range: 150 - 328 10*3/?L. The reference range was not used to interpret this result as normal/abnormal. MPV (test code = 13935-9) 12.7 fL 9.8-13.0 IPF % (test code = 8769284583) 20.6 % 1.2-10.7 H Platelet count measured by fluorescence method. NRBC/100 WBC (test code = 6213588022) 0.8 See_Comment [Automated [employer] ssage] The system which generated this result transmitted reference range: 0.0 - 10.0 /100 WBCs. The reference range was not used to interpret this result as normal/abnormal. NRBC x10^3 (test code = 7961965214) 0.12 See_Comment [Automated [employer]] The system which generated this result transmitted reference range: 10*3/?L. The reference range was not used to interpret this result as normal/abnormal. GRAN MAT (NEUT) % (test code = 770-8) 82.1 % IMM GRAN % (test code = 3103182204) 1.70 % LYMPH % (test code = 736-9) 7.2 % MONO % (test code = 5905-5) 6.8 % EOS % (test code = 713-8) 2.0 % BASO % (test code = 706-2) 0.2 % GRAN MAT x10^3(ANC) (test code = 6964220422) 12.01 10*3/uL 1.99-6.95 H IMM GRAN x10^3 (test code = 7125406822) 0.25 10*3/uL 0.00-0.06 H LYMPH x10^3 (test code = 731-0) 1.06 10*3/uL 1.09-3.23 L MONO x10^3 (test code = 742-7) 1.00 10*3/uL 0.36-1.02 EOS x10^3 (test code = 711-2) 0.29 10*3/uL 0.06-0.53 BASO x10^3 (test code = 704-7) 0.03 10*3/uL 0.01-0.09 BRADLEY CELLS (test code = 7790-9) 2+ See_Comment A [Automated messa ge] The system which generated this result transmitted reference range: (none). The reference range was not used to interpret this result as normal/abnormal. POLYCHROMASIA (test code = 24352-6) 2+ See_Comment [Automated messa ge] The system which generated this result transmitted reference range: 2+. The reference range was not used to interpret this result as normal/abnormal. GIANT PLATELETS (test code = 5908-9) Present See_Comment A [Automated messa ge] The system which generated this result transmitted reference range: (none). The reference range was not used to interpret this result as normal/abnormal. Lab Interpretation (test code = 73466-4) [facility] [id number] 08:57:03* Test Item Value Reference Range Interpretation Comme nts TROPONIN I (test code = 8456093585) 3.330 ng/mL <=0.034 H MIKAYLA (test code = MIKAYLA) Reference (Normal) [...] patient's use of biotin. Lab Interpretation (test code = 35760-5) Abnormal [facility] [id number] 08:57:03* Test Item Value Reference Range Interpretation Comme nts TROPONIN I (test code = 6251592578) 3.330 ng/mL <=0.034 H MIKAYLA (test code = MIKAYLA) Reference (Normal) [...] patient's use of biotin. Lab Interpretation (test code = 24927-0) Abnormal [facility] [id number] 08:57:03* Test Item Value Reference Range Interpretation Comme nts TROPONIN I (test code = 8205355813) 3.330 ng/mL <=0.034 H MIKAYLA (test code = MIKAYLA) Reference (Normal) [...] patient's use of biotin. Lab Interpretation (test code = 60567-1) Abnormal [facility] [id number] 08:57:03* Test Item Value Reference Range Interpretation Comme nts TROPONIN I (test code = 3013081490) 3.330 ng/mL <=0.034 H MIKAYLA (test code = MIKAYLA) Reference (Normal) [...] patient's use of biotin. Lab Interpretation (test code = 88270-7) Abnormal [facility] METABOLIC PANEL (NA, K, CL, CO2, GLUCOSE, BUN, CREATININE, CA)2023-02-19 08:43:20* Test Item Value Reference Range Interpretation Comme nts NA (test code = 0585698053) 143 mmol/L 135-145 K (test code = 3251222568) 4.1 mmol/L 3.5-5.0 CL (test code = 3509351945) 107 mmol/L 98-108 CO2 TOTAL (test code = 1871579842) 22 mmol/L 23-31 L AGAP (test code = 4311211041) 14 2-16 BUN (test code = 9578569616) 66 mg/dL 7-23 H GLUCOSE (test code = 1619207149) 186 mg/dL 70-110 H CREATININE (test code = 2116889962) 2.54 mg/dL 0.60-1.25 H CALCIUM (test code = 6087777042) 7.5 mg/dL 8.6-10.6 L eGFR (test code = 3018186238) 25.9 mL/min/1.73m2 MIKAYLA (test code = MIKAYLA) Association of [...] or abnormalities in imaging tests). Lab Interpretation (test code = 76493-6) [facility]* Test Item Value Reference Range Interpretation Comme nts PHOSPHORUS (test code = 5758251171) 3.6 mg/dL 2.5-5.0 Lab Interpretation (test cod e = 45850-0) [facility] 08:43:20* Test Item Value Reference Range Interpretation Comme nts MAGNESIUM (test code = 4392951925) 2.9 mg/dL 1.7-2.4 H Lab Interpretation (test cod e = 94059-4) [facility] (NA, K, CL, CO2, GLUCOSE, BUN, CREATININE, CA)2023-02-19 08:43:20* Test Item Value Reference Range Interpretation Comme nts NA (test code = 8187433475) 143 mmol/L 135-145 K (test code = 1124767836) 4.1 mmol/L 3.5-5.0 CL (test code = 3465951024) 107 mmol/L 98-108 CO2 TOTAL (test code = 3326248074) 22 mmol/L 23-31 L AGAP (test code = 8992160994) 14 2-16 BUN (test code = 6035460591) 66 mg/dL 7-23 H GLUCOSE (test code = 0612569465) 186 mg/dL 70-110 H CREATININE (test code = 9253162704) 2.54 mg/dL 0.60-1.25 H CALCIUM (test code = 3049426809) 7.5 mg/dL 8.6-10.6 L eGFR (test code = 4141320669) 25.9 mL/min/1.73m2 MIKAYLA (test code = MIKAYLA) Association of [...] or abnormalities in imaging tests). Lab Interpretation (test code = 10481-5) [facility] 08:43:20* Test Item Value Reference Range Interpretation Comme nts PHOSPHORUS (test code = 1110694658) 3.6 mg/dL 2.5-5.0 Lab Interpretation (test cod e = 35330-4) [facility] 08:43:20* Test Item Value Reference Range Interpretation Comme nts MAGNESIUM (test code = 8960469470) 2.9 mg/dL 1.7-2.4 H Lab Interpretation (test cod e = 24763-5) Abnormal [facility] GLUCOSE (AUTOMATED)2023-02-19 05:58:25* Test Item Value Reference Range Interpretation Comme nts POCT GLU (test code = 4393920548) 172 mg/dL 70-110 H Lab Interpretation (test cod e = 52510-3) Abnormal [facility] GLUCOSE (AUTOMATED)2023-02-19 05:58:25* Test Item Value Reference Range Interpretation Comme nts POCT GLU (test code = 1075111837) 172 mg/dL 70-110 H Lab Interpretation (test cod e = 19501-6) Abnormal [facility] GLUCOSE (AUTOMATED)2023-02-19 05:53:54* Test Item Value Reference Range Interpretation Comme nts POCT GLU (test code = 3847313414) 446 mg/dL 70-110 H Lab Interpretation (test cod e = 88729-6) Abnormal [facility] GLUCOSE (AUTOMATED)2023-02-19 05:53:54* Test Item Value Reference Range Interpretation Comme nts POCT GLU (test code = 4527670129) 446 mg/dL 70-110 H Lab Interpretation (test cod e = 35465-4) [facility] 02:16:44* Test Item Value Reference Range Interpretation Comme nts MAGNESIUM (test code = 7324719866) 2.6 mg/dL 1.7-2.4 H Lab Interpretation (test cod e = 08592-1) [facility] 02:16:44* Test Item Value Reference Range Interpretation Comme nts MAGNESIUM (test code = 3438393699) 2.6 mg/dL 1.7-2.4 H Lab Interpretation (test cod e = 66842-0) [facility] [id number] 02:03:15* Test Item Value Reference Range Interpretation Comme nts TROPONIN I (test code = 6976776484) 4.410 ng/mL <=0.034 H MIKAYLA (test code = MIKAYLA) Reference (Normal) [...] patient's use of biotin. Lab Interpretation (test code = 54655-8) [facility] [id number] 02:03:15* Test Item Value Reference Range Interpretation Comme nts TROPONIN I (test code = 0587106694) 4.410 ng/mL <=0.034 H MIKAYLA (test code = MIKAYLA) Reference (Normal) [...] patient's use of biotin. Lab Interpretation (test code = 78284-7) [facility] (NA, K, CL, CO2, GLUCOSE, BUN, CREATININE, CA)2023-02-19 01:51:34* Test Item Value Reference Range Interpretation Comme nts NA (test code = 4274885569) 141 mmol/L 135-145 K (test code = 7375045003) 4.5 mmol/L 3.5-5.0 CL (test code = 7823684285) 108 mmol/L 98-108 CO2 TOTAL (test code = 3833054056) 23 mmol/L 23-31 AGAP (test code = 6088754810) 10 2-16 BUN (test code = 1436197229) 68 mg/dL 7-23 H GLUCOSE (test code = 9550385540) 173 mg/dL 70-110 H CREATININE (test code = 1309903638) 2.68 mg/dL 0.60-1.25 H CALCIUM (test code = 9697353454) 7.6 mg/dL 8.6-10.6 L eGFR (test code = 0383747383) 24.4 mL/min/1.73m2 MIKAYLA (test code = MIKAYLA) Association of [...] or abnormalities in imaging tests). Lab Interpretation (test code = 57996-5) [facility] (NA, K, CL, CO2, GLUCOSE, BUN, CREATININE, CA)2023-02-19 01:51:34* Test Item Value Reference Range Interpretation Comme nts NA (test code = 5643727916) 141 mmol/L 135-145 K (test code = 4249862297) 4.5 mmol/L 3.5-5.0 CL (test code = 1133894852) 108 mmol/L 98-108 CO2 TOTAL (test code = 3522043307) 23 mmol/L 23-31 AGAP (test code = 8133317455) 10 2-16 BUN (test code = 3196790961) 68 mg/dL 7-23 H GLUCOSE (test code = 8124248893) 173 mg/dL 70-110 H CREATININE (test code = 0054425299) 2.68 mg/dL 0.60-1.25 H CALCIUM (test code = 3468680690) 7.6 mg/dL 8.6-10.6 L eGFR (test code = 9543279982) 24.4 mL/min/1.73m2 MIKAYLA (test code = MIKAYLA) Association of [...] or abnormalities in imaging tests). Lab Interpretation (test code = 33974-6) Abnormal [facility] VENOUS BLOOD [id number] 01:45:27 * Test Item Value Reference Range Interpretation Comme nts PH (test code = 5535881907) 7.36 7.32-7.42 PCO2 ANANDA (test code = 4055778161) 40 See_Comment L [Automated messa ge] The system which generated this result transmitted reference range: 41 - 51 mmHg. The reference range was not used to interpret this result as normal/abnormal. PO2 ANANDA (test code = 8807421121) 28 See_Comment [Automated messa ge] The system which generated this result transmitted reference range: 25 - 40 mmHg. The reference range was not used to interpret this result as normal/abnormal. HCO3 ANANDA (test code = 4878665264) 22 See_Comment L [Automated messa ge] The system which generated this result transmitted reference range: 24 - 28 mEq/L. The reference range was not used to interpret this result as normal/abnormal. AC VBE(BEAKER) (test code = 2165894081) -2.8 mEq/L Lab Interpretation (test code = 83336-6) Abnormal [facility] VENOUS BLOOD [id number] 01:45:27 * Test Item Value Reference Range Interpretation Comme nts PH (test code = 2909818707) 7.36 7.32-7.42 PCO2 ANANDA (test code = 1681641921) 40 See_Comment L [Automated messa ge] The system which generated this result transmitted reference range: 41 - 51 mmHg. The reference range was not used to interpret this result as normal/abnormal. PO2 ANANDA (test code = 2839300413) 28 See_Comment [Automated messa ge] The system which generated this result transmitted reference range: 25 - 40 mmHg. The reference range was not used to interpret this result as normal/abnormal. HCO3 ANANDA (test code = 6434004296) 22 See_Comment L [Automated messa ge] The system which generated this result transmitted reference range: 24 - 28 mEq/L. The reference range was not used to interpret this result as normal/abnormal. AC VBE(BEAKER) (test code = 2484692351) -2.8 mEq/L Lab Interpretation (test code = 00623-9) Abnormal [facility] VENOUS BLOOD [id number] 01:45:27 * Test Item Value Reference Range Interpretation Comme nts PH (test code = 1161049357) 7.36 7.32-7.42 PCO2 ANANDA (test code = 0503762777) 40 See_Comment L [Automated messa ge] The system which generated this result transmitted reference range: 41 - 51 mmHg. The reference range was not used to interpret this result as normal/abnormal. PO2 ANANDA (test code = 0958727597) 28 See_Comment [Automated messa ge] The system which generated this result transmitted reference range: 25 - 40 mmHg. The reference range was not used to interpret this result as normal/abnormal. HCO3 ANANDA (test code = 6406319697) 22 See_Comment L [Automated messa ge] The system which generated this result transmitted reference range: 24 - 28 mEq/L. The reference range was not used to interpret this result as normal/abnormal. AC VBE(BEAKER) (test code = 5213121309) -2.8 mEq/L Lab Interpretation (test code = 09639-2) Abnormal [facility] VENOUS BLOOD [id number] 01:45:27 * Test Item Value Reference Range Interpretation Comme nts PH (test code = 9889729226) 7.36 7.32-7.42 PCO2 ANANDA (test code = 0883089795) 40 See_Comment L [Automated messa ge] The system which generated this result transmitted reference range: 41 - 51 mmHg. The reference range was not used to interpret this result as normal/abnormal. PO2 ANANDA (test code = 7671074828) 28 See_Comment [Automated messa ge] The system which generated this result transmitted reference range: 25 - 40 mmHg. The reference range was not used to interpret this result as normal/abnormal. HCO3 ANANDA (test code = 4115132868) 22 See_Comment L [Automated messa ge] The system which generated this result transmitted reference range: 24 - 28 mEq/L. The reference range was not used to interpret this result as normal/abnormal. AC VBE(BEAKER) (test code = 3808801777) -2.8 mEq/L Lab Interpretation (test code = 90835-2) Abnormal [facility] GLUCOSE (AUTOMATED)2023-02-19 01:35:03* Test Item Value Reference Range Interpretation Comme [facility] POCT GLU (test code = 8558926820) 177 mg/dL 70-110 H Lab Interpretation (test cod e = 63300-5) Abnormal [facility] GLUCOSE (AUTOMATED)2023-02-19 01:35:03* Test Item Value Reference Range Interpretation Comme nts POCT GLU (test code = 4864810303) 177 mg/dL 70-110 H Lab Interpretation (test cod e = 20764-9) Abnormal [facility] GLUCOSE (AUTOMATED)2023-02-18 21:18:08* Test Item Value Reference Range Interpretation Comme nts POCT GLU (test code = 8195912030) 177 mg/dL 70-110 H Lab Interpretation (test cod e = 53935-3) Abnormal [facility] GLUCOSE (AUTOMATED)2023-02-18 21:18:08* Test Item Value Reference Range Interpretation Comme nts POCT GLU (test code = 4783431806) 177 mg/dL 70-110 H Lab Interpretation (test cod e = 66364-0) Abnormal [facility] METABOLIC PANEL (NA, K, CL, CO2, GLUCOSE, BUN, CREATININE, CA)2023-02-18 19:01:30* Test Item Value Reference Range Interpretation Comme [facility] NA (test code = 4545397772) 142 mmol/L 135-145 K (test code = 5142411856) 4.2 mmol/L 3.5-5.0 CL (test code = 8650326003) 107 mmol/L 98-108 CO2 TOTAL (test code = 3174521984) 23 mmol/L 23-31 AGAP (test code = 7239883080) 12 2-16 BUN (test code = 5305923937) 66 mg/dL 7-23 H GLUCOSE (test code = 9860581197) 201 mg/dL 70-110 H CREATININE (test code = 0150317635) 2.71 mg/dL 0.60-1.25 H CALCIUM (test code = 0526690058) 7.3 mg/dL 8.6-10.6 L eGFR (test code = 9027963852) 24.0 mL/min/1.73m2 MIKAYLA (test code = MIKAYLA) Association of [...] or abnormalities in imaging tests). Lab Interpretation (test code = 96090-0) Abnormal [facility] METABOLIC PANEL (NA, K, CL, CO2, GLUCOSE, BUN, CREATININE, CA)2023-02-18 19:01:30* Test Item Value Reference Range Interpretation Comme nts NA (test code = 8199158562) 142 mmol/L 135-145 K (test code = 0600977978) 4.2 mmol/L 3.5-5.0 CL (test code = 0863982974) 107 mmol/L 98-108 CO2 TOTAL (test code = 3278642963) 23 mmol/L 23-31 AGAP (test code = 9756081868) 12 2-16 BUN (test code = 4524998739) 66 mg/dL 7-23 H GLUCOSE (test code = 6924856189) 201 mg/dL 70-110 H CREATININE (test code = 6922331005) 2.71 mg/dL 0.60-1.25 H CALCIUM (test code = 7613460641) 7.3 mg/dL 8.6-10.6 L eGFR (test code = 2145702744) 24.0 mL/min/1.73m2 MIKAYLA (test code = MIKAYLA) Association of [...] or abnormalities in imaging tests). Lab Interpretation (test code = 38187-3) Abnormal [facility] GLUCOSE (AUTOMATED)2023-02-18 18:42:59* Test Item Value Reference Range Interpretation Comme nts POCT GLU (test code = 1107950007) 198 mg/dL 70-110 H Lab Interpretation (test cod e = 27018-3) Abnormal [facility] GLUCOSE (AUTOMATED)2023-02-18 18:42:59* Test Item Value Reference Range Interpretation Comme nts POCT GLU (test code = 6982535256) 198 mg/dL 70-110 H Lab Interpretation (test cod e = 06500-0) Abnormal [facility] GLUCOSE (AUTOMATED)2023-02-18 13:17:43* Test Item Value Reference Range Interpretation Comme nts POCT GLU (test code = 9401893953) 211 mg/dL 70-110 H Lab Interpretation (test cod e = 20459-6) [facility] 13:17:43* Test Item Value Reference Range Interpretation Comme [facility] POCT GLU (test code = 3405582019) 211 mg/dL 70-110 H Lab Interpretation (test cod e = 70060-4) Abnormal [facility] WITH [id number] 10:27:49* Test Item Value Reference Range Interpretation Comme nts WBC (test code = 6690-2) 12.54 See_Comment H [Automated messa ge] The system which generated this result transmitted reference range: 4.20 - 10.70 10*3/?L. The reference range was not used to interpret this result as normal/abnormal. RBC (test code = 789-8) 2.50 See_Comment L [Automated messa ge] The system which generated this result transmitted reference range: 4.26 - 5.52 10*6/?L. The reference range was not used to interpret this result as normal/abnormal. HGB (test code = 718-7) 7.6 g/dL 12.2-16.4 L HCT (test code = 4544-3) 23.4 % 38.4-49.3 L MCV (test code = 787-2) 93.6 fL 81.7-95.6 MCH (test code = 785-6) 30.4 pg 26.1-32.7 MCHC (test code = 786-4) 32.5 g/dL 31.2-35.0 RDW-SD (test code = 60323-3) 53.1 fL 38.5-51.6 H RDW-CV (test code = 788-0) 15.7 % 12.1-15.4 H PLT (test code = 777-3) 37 See_Comment LL [Automated messa ge] The system which generated this result transmitted reference range: 150 - 328 10*3/?L. The reference range was not used to interpret this result as normal/abnormal. MPV (test code = 21651-2) 13.5 fL 9.8-13.0 H IPF % (test code = 1656542500) 18.5 % 1.2-10.7 H Platelet count measured by fluorescence method. NRBC/100 WBC (test code = 0286550865) 0.8 See_Comment [Automated [employer]] The system which generated this result transmitted reference range: 0.0 - 10.0 /100 WBCs. The reference range was not used to interpret this result as normal/abnormal. NRBC x10^3 (test code = 4971837040) 0.10 See_Comment [Automated messa ge] The system which generated this result transmitted reference range: 10*3/?L. The reference range was not used to interpret this result as normal/abnormal. GRAN MAT (NEUT) % (test code = 770-8) 80.2 % IMM GRAN % (test code = 0018751654) 1.20 % LYMPH % (test code = 736-9) 9.3 % MONO % (test code = 5905-5) 7.5 % EOS % (test code = 713-8) 1.6 % BASO % (test code = 706-2) 0.2 % GRAN MAT x10^3(ANC) (test code = 8706138822) 10.05 10*3/uL 1.99-6.95 H IMM GRAN x10^3 (test code = 7980649630) 0.15 10*3/uL 0.00-0.06 H LYMPH x10^3 (test code = 731-0) 1.17 10*3/uL 1.09-3.23 MONO x10^3 (test code = 742-7) 0.94 10*3/uL 0.36-1.02 EOS x10^3 (test code = 711-2) 0.20 10*3/uL 0.06-0.53 BASO x10^3 (test code = 704-7) 0.03 10*3/uL 0.01-0.09 POLYCHROMASIA (test code = 66636-7) 2+ See_Comment [Automated messa ge] The system which generated this result transmitted reference range: 2+. The reference range was not used to interpret this result as normal/abnormal. GIANT PLATELETS (test code = 5908-9) Present See_Comment A [Automated messa ge] The system which generated this result transmitted reference range: (none). The reference range was not used to interpret this result as normal/abnormal. Lab Interpretation (test code = 66997-4) Abnormal [facility] WITH [id number] 10:27:49* Test Item Value Reference Range Interpretation Comme nts WBC (test code = 6690-2) 12.54 See_Comment H [Automated [employer]] The system which generated this result transmitted reference range: 4.20 - 10.70 10*3/?L. The reference range was not used to interpret this result as normal/abnormal. RBC (test code = 789-8) 2.50 See_Comment L [Automated [employer]] The system which generated this result transmitted reference range: 4.26 - 5.52 10*6/?L. The reference range was not used to interpret this result as normal/abnormal. HGB (test code = 718-7) 7.6 g/dL 12.2-16.4 L HCT (test code = 4544-3) 23.4 % 38.4-49.3 L MCV (test code = 787-2) 93.6 fL 81.7-95.6 MCH (test code = 785-6) 30.4 pg 26.1-32.7 MCHC (test code = 786-4) 32.5 g/dL 31.2-35.0 RDW-SD (test code = 40179-6) 53.1 fL 38.5-51.6 H RDW-CV (test code = 788-0) 15.7 % 12.1-15.4 H PLT (test code = 777-3) 37 See_Comment LL [Automated [employer]] The system which generated this result transmitted reference range: 150 - 328 10*3/?L. The reference range was not used to interpret this result as normal/abnormal. MPV (test code = 90959-7) 13.5 fL 9.8-13.0 H IPF % (test code = 0273676375) 18.5 % 1.2-10.7 H Platelet count measured by fluorescence method. NRBC/100 WBC (test code = 9976018969) 0.8 See_Comment [Automated [employer] ssage] The system which generated this result transmitted reference range: 0.0 - 10.0 /100 WBCs. The reference range was not used to interpret this result as normal/abnormal. NRBC x10^3 (test code = 2359965506) 0.10 See_Comment [Automated messa ge] The system which generated this result transmitted reference range: 10*3/?L. The reference range was not used to interpret this result as normal/abnormal. GRAN MAT (NEUT) % (test code = 770-8) 80.2 % IMM GRAN % (test code = 2596795370) 1.20 % LYMPH % (test code = 736-9) 9.3 % MONO % (test code = 5905-5) 7.5 % EOS % (test code = 713-8) 1.6 % BASO % (test code = 706-2) 0.2 % GRAN MAT x10^3(ANC) (test code = 0790751884) 10.05 10*3/uL 1.99-6.95 H IMM GRAN x10^3 (test code = 6509682613) 0.15 10*3/uL 0.00-0.06 H LYMPH x10^3 (test code = 731-0) 1.17 10*3/uL 1.09-3.23 MONO x10^3 (test code = 742-7) 0.94 10*3/uL 0.36-1.02 EOS x10^3 (test code = 711-2) 0.20 10*3/uL 0.06-0.53 BASO x10^3 (test code = 704-7) 0.03 10*3/uL 0.01-0.09 POLYCHROMASIA (test code = 39358-0) 2+ See_Comment [Automated messa ge] The system which generated this result transmitted reference range: 2+. The reference range was not used to interpret this result as normal/abnormal. GIANT PLATELETS (test code = 5908-9) Present See_Comment A [Automated messa ge] The system which generated this result transmitted reference range: (none). The reference range was not used to interpret this result as normal/abnormal. Lab Interpretation (test code = 12257-6) [facility]* Test Item Value Reference Range Interpretation Comme nts PHOSPHORUS (test code = 6388756697) 3.4 mg/dL 2.5-5.0 Lab Interpretation (test cod e = 81343-7) [facility]:53:59* Test Item Value Reference Range Interpretation Comme nts MAGNESIUM (test code = 5989755617) 2.5 mg/dL 1.7-2.4 H Lab Interpretation (test cod e = 47890-6) [facility] 09:53:59* Test Item Value Reference Range Interpretation Comme nts PHOSPHORUS (test code = 5058482915) 3.4 mg/dL 2.5-5.0 Lab Interpretation (test cod e = 38805-0) [facility]* Test Item Value Reference Range Interpretation Comme nts MAGNESIUM (test code = 7803026918) 2.5 mg/dL 1.7-2.4 H Lab Interpretation (test cod e = 88709-2) Abnormal [facility] METABOLIC PANEL (NA, K, CL, CO2, GLUCOSE, BUN, CREATININE, CA)2023-02-18 09:53:58* Test Item Value Reference Range Interpretation Comme nts NA (test code = 6582478145) 139 mmol/L 135-145 K (test code = 1248976521) 4.4 mmol/L 3.5-5.0 CL (test code = 8265394550) 107 mmol/L 98-108 CO2 TOTAL (test code = 7718514804) 23 mmol/L 23-31 AGAP (test code = 7616474003) 9 2-16 BUN (test code = 3531940764) 64 mg/dL 7-23 H GLUCOSE (test code = 8325849011) 204 mg/dL 70-110 H CREATININE (test code = 9954903285) 2.65 mg/dL 0.60-1.25 H CALCIUM (test code = 4220121999) 7.3 mg/dL 8.6-10.6 L eGFR (test code = 4259453921) 24.7 mL/min/1.73m2 MIKAYLA (test code = MIKAYLA) Association of [...] or abnormalities in imaging tests). Lab Interpretation (test code = 88261-5) [facility] (NA, K, CL, CO2, GLUCOSE, BUN, CREATININE, CA)2023-02-18 09:53:58* Test Item Value Reference Range Interpretation Comme nts NA (test code = 5841326372) 139 mmol/L 135-145 K (test code = 5290951849) 4.4 mmol/L 3.5-5.0 CL (test code = 4337752784) 107 mmol/L 98-108 CO2 TOTAL (test code = 6710874060) 23 mmol/L 23-31 AGAP (test code = 6323562012) 9 2-16 BUN (test code = 5820180226) 64 mg/dL 7-23 H GLUCOSE (test code = 0321288581) 204 mg/dL 70-110 H CREATININE (test code = 5681553610) 2.65 mg/dL 0.60-1.25 H CALCIUM (test code = 7314461713) 7.3 mg/dL 8.6-10.6 L eGFR (test code = 6235157030) 24.7 mL/min/1.73m2 MIKAYLA (test code = MIKAYLA) Association of [...] or abnormalities in imaging tests). Lab Interpretation (test code = 29697-0) [facility] + LACTIC [id number] 09:17:54* Test Item Value Reference Range Interpretation Comme nts PH (test code = 1088423209) 7.34 7.32-7.42 PCO2 ANNADA (test code = 3214582349) 44 See_Comment [Automated [employer]] The system which generated this result transmitted reference range: 41 - 51 mmHg. The reference range was not used to interpret this result as normal/abnormal. PO2 ANANDA (test code = 6784702544) 31 See_Comment [Automated [employer]] The system which generated this result transmitted reference range: 25 - 40 mmHg. The reference range was not used to interpret this result as normal/abnormal. HCO3 ANANDA (test code = 7959189602) 23 See_Comment L [Automated messa ge] The system which generated this result transmitted reference range: 24 - 28 mEq/L. The reference range was not used to interpret this result as normal/abnormal. AC VBE(BEAKER) (test code = 5735371243) -2.6 mEq/L THB ANANDA (test code = 8274911973) 8.4 g/dL 13.5-18.0 L %O2HB ANANDA (test code = 7714039983) 47.1 % 52.0-63.0 L %COHB ANANDA (test code = 5428888258) 0.8 % 0.0-1.5 %METHB ANANDA (test code = 0493161350) 0.3 % 0.4-1.5 L VOL%O2 ANANDA (test code = 4948414879) 5.6 % 6.0-12.0 L NA (test code = 1963903450) 139 mmol/L 135-145 K+ (test code = 9989410843) 4.3 mmol/L 3.5-5.0 AC CA IONZ (test code = 3797679513) 4.30 mg/dL 4.50-5.30 L GLUCOSE (test code = 9409773478) 213 mg/dL 70-110 H LACTIC ACID (test code = 4316731749) 2.01 mmol/L 0.50-2.20 Lab Interpretation (test code = 48246-5) [facility] LACTIC [id number] 09:17:54* Test Item Value Reference Range Interpretation Comme nts PH (test code = 8152194076) 7.34 7.32-7.42 PCO2 ANANDA (test code = 9738066713) 44 See_Comment [Automated messa ge] The system which generated this result transmitted reference range: 41 - 51 mmHg. The reference range was not used to interpret this result as normal/abnormal. PO2 ANANDA (test code = 8887448114) 31 See_Comment [Automated messa ge] The system which generated this result transmitted reference range: 25 - 40 mmHg. The reference range was not used to interpret this result as normal/abnormal. HCO3 ANANDA (test code = 7988077288) 23 See_Comment L [Automated messa ge] The system which generated this result transmitted reference range: 24 - 28 mEq/L. The reference range was not used to interpret this result as normal/abnormal. AC VBE(BEAKER) (test code = 1125091053) -2.6 mEq/L THB ANANDA (test code = 7378725930) 8.4 g/dL 13.5-18.0 L %O2HB ANANDA (test code = 8645872510) 47.1 % 52.0-63.0 L %COHB ANANDA (test code = 2816454984) 0.8 % 0.0-1.5 %METHB ANANDA (test code = 1877480406) 0.3 % 0.4-1.5 L VOL%O2 ANANDA (test code = 0802722173) 5.6 % 6.0-12.0 L NA (test code = 1083671786) 139 mmol/L 135-145 K+ (test code = 7112366503) 4.3 mmol/L 3.5-5.0 AC CA IONZ (test code = 2136873727) 4.30 mg/dL 4.50-5.30 L GLUCOSE (test code = 3891418228) 213 mg/dL 70-110 H LACTIC ACID (test code = 5625109146) 2.01 mmol/L 0.50-2.20 Lab Interpretation (test code = 30401-2) Abnormal [facility] GLUCOSE (AUTOMATED)2023-02-18 09:10:26* Test Item Value Reference Range Interpretation Comme nts POCT GLU (test code = 0685399952) 225 mg/dL 70-110 H Lab Interpretation (test cod e = 68164-7) Abnormal [facility] GLUCOSE (AUTOMATED)2023-02-18 09:10:26* Test Item Value Reference Range Interpretation Comme nts POCT GLU (test code = 5437897491) 225 mg/dL 70-110 H Lab Interpretation (test cod e = 77412-1) Abnormal [facility] GLUCOSE (AUTOMATED)2023-02-18 05:25:04* Test Item Value Reference Range Interpretation Comme nts POCT GLU (test code = 4665736922) 132 mg/dL 70-110 H Lab Interpretation (test cod e = 93059-0) Abnormal [facility] GLUCOSE (AUTOMATED)2023-02-18 05:25:04* Test Item Value Reference Range Interpretation Comme nts POCT GLU (test code = 8522826040) 132 mg/dL 70-110 H Lab Interpretation (test cod e = 45031-3) [facility] 03:13:25* Test Item Value Reference Range Interpretation Comme nts POCT GLU (test code = 7295707363) 187 mg/dL 70-110 H Notified Provide r Lab Interpretation (test code = 63367-2) Abnormal [facility] GLUCOSE (AUTOMATED)2023-02-18 03:13:25* Test Item Value Reference Range Interpretation Comme nts POCT GLU (test code = 2086955716) 187 mg/dL 70-110 H Notified Provide r Lab Interpretation (test code = 98188-5) Abnormal [facility] GLUCOSE (AUTOMATED)2023-02-18 01:55:09* Test Item Value Reference Range Interpretation Comme nts POCT GLU (test code = 3021833643) 250 mg/dL 70-110 H Lab Interpretation (test cod e = 44839-6) Abnormal [facility] GLUCOSE (AUTOMATED)2023-02-18 01:55:09* Test Item Value Reference Range Interpretation Comme nts POCT GLU (test code = 2243124712) 250 mg/dL 70-110 H Lab Interpretation (test cod e = 51423-8) Abnormal [facility] GLUCOSE (AUTOMATED)2023-02-18 01:47:52* Test Item Value Reference Range Interpretation Comme nts POCT GLU (test code = 4036408279) 43 mg/dL 70-110 LL Lab Interpretation (test cod e = 56378-2) Abnormal [facility] GLUCOSE (AUTOMATED)2023-02-18 01:47:52* Test Item Value Reference Range Interpretation Comme nts POCT GLU (test code = 3809106838) 43 mg/dL 70-110 LL Lab Interpretation (test cod e = 51129-7) Abnormal [facility] GLUCOSE (AUTOMATED)2023-02-18 01:24:26* Test Item Value Reference Range Interpretation Comme nts POCT GLU (test code = 0522839365) 56 mg/dL 70-110 L Lab Interpretation (test cod e = 49179-5) Abnormal [facility] GLUCOSE (AUTOMATED)2023-02-18 01:24:26* Test Item Value Reference Range Interpretation Comme nts POCT GLU (test code = 0232684721) 56 mg/dL 70-110 L Lab Interpretation (test cod e = 90036-2) Abnormal [facility] GLUCOSE (AUTOMATED)2023-02-18 00:49:25* Test Item Value Reference Range Interpretation Comme nts POCT GLU (test code = 0103440716) 53 mg/dL 70-110 L Lab Interpretation (test cod e = 30396-0) Abnormal [facility] GLUCOSE (AUTOMATED)2023-02-18 00:49:25* Test Item Value Reference Range Interpretation Comme nts POCT GLU (test code = 3620543347) 53 mg/dL 70-110 L Lab Interpretation (test cod e = 20698-1) Abnormal [facility] GLUCOSE (AUTOMATED)2023-02-17 22:17:51* Test Item Value Reference Range Interpretation Comme nts POCT GLU (test code = 1857393253) 106 mg/dL 70-110 Lab Interpretation (test cod e = 82456-8) Normal [facility] GLUCOSE (AUTOMATED)2023-02-17 22:17:51* Test Item Value Reference Range Interpretation Comme nts POCT GLU (test code = 3952872502) 106 mg/dL 70-110 Lab Interpretation (test cod e = 38857-1) [facility] L[facility] Acid While [facility]ubated 2023-02-17 17:52:47* Test Item Value Reference Range Interpretation Comme nts PH (test code = 2) 7.44 7.35-7.45 PCO2 (test code = 6367241540) 33 See_Comment L [Automated messa ge] The system which generated this result transmitted reference range: 35 - 45 mmHg. The reference range was not used to interpret this result as normal/abnormal. PO2 (test code = 5193592405) 95 See_Comment [Automated messa ge] The system which generated this result transmitted reference range: 80 - 100 mmHg. The reference range was not used to interpret this result as normal/abnormal. HCO3 (test code = 3048075090) 22 See_Comment [Automated messa ge] The system which generated this result transmitted reference range: 22 - 26 mEq/L. The reference range was not used to interpret this result as normal/abnormal. BE (test code = 2586091378) -1.9 See_Comment [Automated messa ge] The system which generated this result transmitted reference range: -3.0 - 3.0 mEq/L. The reference range was not used to interpret this result as normal/abnormal. THB (test code = 1508888845) 8.6 g/dL 13.5-18.0 L %O2HB (test code = 2752188522) 96.0 % 94.0-99.0 %COHB ART (test code = 7411824386) 0.7 % 0.0-1.5 %METHB ART (test code = 4648100963) 0.1 % 0.4-1.5 L VOL%O2 ART (test code = 4563861519) 11.8 % 15.0-23.0 L NA (test code = 4055767242) 137 mmol/L 135-145 K+ (test code = 7445919840) 4.1 mmol/L 3.5-5.0 AC CA IONZ (test code = 1946242636) 4.40 mg/dL 4.50-5.30 L GLUCOSE (test code = 4839007909) 158 mg/dL 70-110 H LACTIC ACID (test code = 9916665886) 1.75 mmol/L 0.50-2.20 Lab Interpretation (test code = 85480-4) [facility] Lactic Acid While intubated 2023-02-17 17:52:47* Test Item Value Reference Range Interpretation Comme nts PH (test code = 2) 7.44 7.35-7.45 PCO2 (test code = 5730477367) 33 See_Comment L [Automated messa ge] The system which generated this result transmitted reference range: 35 - 45 mmHg. The reference range was not used to interpret this result as normal/abnormal. PO2 (test code = 1368224570) 95 See_Comment [Automated messa ge] The system which generated this result transmitted reference range: 80 - 100 mmHg. The reference range was not used to interpret this result as normal/abnormal. HCO3 (test code = 1503701957) 22 See_Comment [Automated messa ge] The system which generated this result transmitted reference range: 22 - 26 mEq/L. The reference range was not used to interpret this result as normal/abnormal. BE (test code = 5715905068) -1.9 See_Comment [Automated messa ge] The system which generated this result transmitted reference range: -3.0 - 3.0 mEq/L. The reference range was not used to interpret this result as normal/abnormal. THB (test code = 8778127671) 8.6 g/dL 13.5-18.0 L %O2HB (test code = 0867360619) 96.0 % 94.0-99.0 %COHB ART (test code = 7798755599) 0.7 % 0.0-1.5 %METHB ART (test code = 7086699914) 0.1 % 0.4-1.5 L VOL%O2 ART (test code = 2805623992) 11.8 % 15.0-23.0 L NA (test code = 5766567988) 137 mmol/L 135-145 K+ (test code = 4200087591) 4.1 mmol/L 3.5-5.0 AC CA IONZ (test code = 3617277508) 4.40 mg/dL 4.50-5.30 L GLUCOSE (test code = 4893734804) 158 mg/dL 70-110 H LACTIC ACID (test code = 7000251895) 1.75 mmol/L 0.50-2.20 Lab Interpretation (test code = 94221-2) [facility] 16:53:31* Test Item Value Reference Range Interpretation Comme nts PH (test code = 2) 7.44 7.35-7.45 PCO2 (test code = 9701786826) 34 See_Comment L [Automated messa ge] The system which generated this result transmitted reference range: 35 - 45 mmHg. The reference range was not used to interpret this result as normal/abnormal. PO2 (test code = 7003044667) 74 See_Comment L [Automated messa ge] The system which generated this result transmitted reference range: 80 - 100 mmHg. The reference range was not used to interpret this result as normal/abnormal. HCO3 (test code = 7056935237) 23 See_Comment [Automated messa ge] The system which generated this result transmitted reference range: 22 - 26 mEq/L. The reference range was not used to interpret this result as normal/abnormal. BE (test code = 8726199952) -1.4 See_Comment [Automated messa ge] The system which generated this result transmitted reference range: -3.0 - 3.0 mEq/L. The reference range was not used to interpret this result as normal/abnormal. THB (test code = 8436961562) 8.3 g/dL 13.5-18.0 LL %O2HB (test code = 9737079255) 93.7 % 94.0-99.0 L %COHB ART (test code = 8578457845) 0.5 % 0.0-1.5 %METHB ART (test code = 3753449448) 0.1 % 0.4-1.5 L VOL%O2 ART (test code = 8250606515) 11.0 % 15.0-23.0 L NA (test code = 3619974015) 138 mmol/L 135-145 K+ (test code = 6848187011) 4.1 mmol/L 3.5-5.0 AC CA IONZ (test code = 0406819094) 4.30 mg/dL 4.50-5.30 L GLUCOSE (test code = 5234438218) 166 mg/dL 70-110 H Lab Interpretation (test code = 13804-4) [facility] 16:53:31* Test Item Value Reference Range Interpretation Comme nts PH (test code = 2) 7.44 7.35-7.45 PCO2 (test code = 2250336423) 34 See_Comment L [Automated messa ge] The system which generated this result transmitted reference range: 35 - 45 mmHg. The reference range was not used to interpret this result as normal/abnormal. PO2 (test code = 2707908299) 74 See_Comment L [Automated messa ge] The system which generated this result transmitted reference range: 80 - 100 mmHg. The reference range was not used to interpret this result as normal/abnormal. HCO3 (test code = 7749159787) 23 See_Comment [Automated messa ge] The system which generated this result transmitted reference range: 22 - 26 mEq/L. The reference range was not used to interpret this result as normal/abnormal. BE (test code = 1895055835) -1.4 See_Comment [Automated messa ge] The system which generated this result transmitted reference range: -3.0 - 3.0 mEq/L. The reference range was not used to interpret this result as normal/abnormal. THB (test code = 1058472659) 8.3 g/dL 13.5-18.0 LL %O2HB (test code = 4752709145) 93.7 % 94.0-99.0 L %COHB ART (test code = 1993366903) 0.5 % 0.0-1.5 %METHB ART (test code = 2588914652) 0.1 % 0.4-1.5 L VOL%O2 ART (test code = 8158028950) 11.0 % 15.0-23.0 L NA (test code = 6958186235) 138 mmol/L 135-145 K+ (test code = 6903797538) 4.1 mmol/L 3.5-5.0 AC CA IONZ (test code = 1487729049) 4.30 mg/dL 4.50-5.30 L GLUCOSE (test code = 1147564065) 166 mg/dL 70-110 H Lab Interpretation (test code = 70922-4) [facility]-17 16:53:31* Test Item Value Reference Range Interpretation Comme nts PH (test code = 2) 7.44 7.35-7.45 PCO2 (test code = 8675425980) 34 See_Comment L [Automated messa ge] The system which generated this result transmitted reference range: 35 - 45 mmHg. The reference range was not used to interpret this result as normal/abnormal. PO2 (test code = 1118400008) 74 See_Comment L [Automated messa ge] The system which generated this result transmitted reference range: 80 - 100 mmHg. The reference range was not used to interpret this result as normal/abnormal. HCO3 (test code = 1811950832) 23 See_Comment [Automated messa ge] The system which generated this result transmitted reference range: 22 - 26 mEq/L. The reference range was not used to interpret this result as normal/abnormal. BE (test code = 6123697728) -1.4 See_Comment [Automated messa ge] The system which generated this result transmitted reference range: -3.0 - 3.0 mEq/L. The reference range was not used to interpret this result as normal/abnormal. THB (test code = 0289584056) 8.3 g/dL 13.5-18.0 LL %O2HB (test code = 7422909304) 93.7 % 94.0-99.0 L %COHB ART (test code = 9086010195) 0.5 % 0.0-1.5 %METHB ART (test code = 5740611645) 0.1 % 0.4-1.5 L VOL%O2 ART (test code = 1678124478) 11.0 % 15.0-23.0 L NA (test code = 3284379663) 138 mmol/L 135-145 K+ (test code = 0192363135) 4.1 mmol/L 3.5-5.0 AC CA IONZ (test code = 6372237545) 4.30 mg/dL 4.50-5.30 L GLUCOSE (test code = 3251672440) 166 mg/dL 70-110 H Lab Interpretation (test code = 11289-9) [facility]23-[facility]-17 16:53:31* Test Item Value Reference Range Interpretation Comme nts PH (test code = 2) 7.44 7.35-7.45 PCO2 (test code = 3736959373) 34 See_Comment L [Automated messa ge] The system which generated this result transmitted reference range: 35 - 45 mmHg. The reference range was not used to interpret this result as normal/abnormal. PO2 (test code = 9237015509) 74 See_Comment L [Automated messa ge] The system which generated this result transmitted reference range: 80 - 100 mmHg. The reference range was not used to interpret this result as normal/abnormal. HCO3 (test code = 6673682869) 23 See_Comment [Automated messa ge] The system which generated this result transmitted reference range: 22 - 26 mEq/L. The reference range was not used to interpret this result as normal/abnormal. BE (test code = 3042907690) -1.4 See_Comment [Automated messa ge] The system which generated this result transmitted reference range: -3.0 - 3.0 mEq/L. The reference range was not used to interpret this result as normal/abnormal. THB (test code = 4761403903) 8.3 g/dL 13.5-18.0 LL %O2HB (test code = 4045768989) 93.7 % 94.0-99.0 L %COHB ART (test code = 1752186591) 0.5 % 0.0-1.5 %METHB ART (test code = 5011058860) 0.1 % 0.4-1.5 L VOL%O2 ART (test code = 6877733963) 11.0 % 15.0-23.0 L NA (test code = 7482567334) 138 mmol/L 135-145 K+ (test code = 7111336012) 4.1 mmol/L 3.5-5.0 AC CA IONZ (test code = 1721224233) 4.30 mg/dL 4.50-5.30 L GLUCOSE (test code = 0729923030) 166 mg/dL 70-110 H Lab Interpretation (test code = 47524-4) Abnormal [facility] GLUCOSE (AUTOMATED)2023-02-17 12:50:22* Test Item Value Reference Range Interpretation Comme nts POCT GLU (test code = 7786479262) 187 mg/dL 70-110 H Lab Interpretation (test cod e = 81083-9) Abnormal [facility] GLUCOSE (AUTOMATED)2023-02-17 12:50:22* Test Item Value Reference Range Interpretation Comme nts POCT GLU (test code = 6744877157) 187 mg/dL 70-110 H Lab Interpretation (test cod e = 58676-4) Abnormal [facility] GLUCOSE (AUTOMATED)2023-02-17 09:15:58* Test Item Value Reference Range Interpretation Comme nts POCT GLU (test code = 9538930643) 162 mg/dL 70-110 H Lab Interpretation (test cod e = 52886-6) Abnormal [facility] GLUCOSE (AUTOMATED)2023-02-17 09:15:58* Test Item Value Reference Range Interpretation Comme nts POCT GLU (test code = 0468471369) 162 mg/dL 70-110 H Lab Interpretation (test cod e = 42325-9) Abnormal [facility] GLUCOSE (AUTOMATED)2023-02-17 04:51:36* Test Item Value Reference Range Interpretation Comme nts POCT GLU (test code = 5001503594) 159 mg/dL 70-110 H Lab Interpretation (test cod e = 07416-8) Abnormal [facility] GLUCOSE (AUTOMATED)2023-02-17 04:51:36* Test Item Value Reference Range Interpretation Comme nts POCT GLU (test code = 1163833211) 159 mg/dL 70-110 H Lab Interpretation (test cod e = 17231-4) Abnormal [facility] GLUCOSE (AUTOMATED)2023-02-17 00:49:36* Test Item Value Reference Range Interpretation Comme nts POCT GLU (test code = 0576140060) 185 mg/dL 70-110 H Lab Interpretation (test cod e = 99588-4) Abnormal [facility] GLUCOSE (AUTOMATED)2023-02-17 00:49:36* Test Item Value Reference Range Interpretation Comme nts POCT GLU (test code = 6955482512) 185 mg/dL 70-110 H Lab Interpretation (test cod e = 22693-2) Abnormal [facility] GLUCOSE (AUTOMATED)2023-02-16 23:44:30* Test Item Value Reference Range Interpretation Comme nts POCT GLU (test code = 3990243035) 196 mg/dL 70-110 H Lab Interpretation (test cod e = 24345-0) [facility] 23:44:30* Test Item Value Reference Range Interpretation Comme nts POCT GLU (test code = 0676442988) 196 mg/dL 70-110 H Lab Interpretation (test cod e = 26149-8) Abnormal [facility] GLUCOSE (AUTOMATED)2023-02-16 16:49:31* Test Item Value Reference Range Interpretation Comme nts POCT GLU (test code = 7203004523) 237 mg/dL 70-110 H Lab Interpretation (test cod e = 33045-5) Abnormal [facility] GLUCOSE (AUTOMATED)2023-02-16 16:49:31* Test Item Value Reference Range Interpretation Comme [facility] POCT GLU (test code = 9044825238) 237 mg/dL 70-110 H Lab Interpretation (test cod e = 47671-4) [facility] + Lactic Bvzl1505-49-72 14:17:23* Test Item Value Reference Range Interpretation Comme [facility] PH (test code = 2) 7.36 7.35-7.45 PCO2 (test code = 5621083399) 39 See_Comment [Automated messa ge] The system which generated this result transmitted reference range: 35 - 45 mmHg. The reference range was not used to interpret this result as normal/abnormal. PO2 (test code = 4537090727) 30 See_Comment LL [Automated messa ge] The system which generated this result transmitted reference range: 80 - 100 mmHg. The reference range was not used to interpret this result as normal/abnormal. HCO3 (test code = 1235212010) 22 See_Comment [Automated messa ge] The system which generated this result transmitted reference range: 22 - 26 mEq/L. The reference range was not used to interpret this result as normal/abnormal. BE (test code = 1493267874) -3.4 See_Comment L [Automated messa ge] The system which generated this result transmitted reference range: -3.0 - 3.0 mEq/L. The reference range was not used to interpret this result as normal/abnormal. THB (test code = 3973607087) 7.1 g/dL 13.5-18.0 LL %O2HB (test code = 0863525372) 54.8 % 94.0-99.0 L %COHB ART (test code = 7444210144) 0.7 % 0.0-1.5 %METHB ART (test code = 5993286178) 0.4 % 0.4-1.5 VOL%O2 ART (test code = 0203882126) 5.5 % 15.0-23.0 L NA (test code = 3791347580) 133 mmol/L 135-145 L K+ (test code = 5413953092) 4.6 mmol/L 3.5-5.0 AC CA IONZ (test code = 4752977186) 4.30 mg/dL 4.50-5.30 L GLUCOSE (test code = 3401995009) 241 mg/dL 70-110 H LACTIC ACID (test code = 3288610969) 2.73 mmol/L 0.50-2.20 H Lab Interpretation (test code = 70720-8) [facility] + Lactic Assm6183-53-41 14:17:23* Test Item Value Reference Range Interpretation Comme nts PH (test code = 2) 7.36 7.35-7.45 PCO2 (test code = 5276982856) 39 See_Comment [Automated messa ge] The system which generated this result transmitted reference range: 35 - 45 mmHg. The reference range was not used to interpret this result as normal/abnormal. PO2 (test code = 6124633869) 30 See_Comment LL [Automated messa ge] The system which generated this result transmitted reference range: 80 - 100 mmHg. The reference range was not used to interpret this result as normal/abnormal. HCO3 (test code = 1744998229) 22 See_Comment [Automated messa ge] The system which generated this result transmitted reference range: 22 - 26 mEq/L. The reference range was not used to interpret this result as normal/abnormal. BE (test code = 5226986809) -3.4 See_Comment L [Automated messa ge] The system which generated this result transmitted reference range: -3.0 - 3.0 mEq/L. The reference range was not used to interpret this result as normal/abnormal. THB (test code = 9322427462) 7.1 g/dL 13.5-18.0 LL %O2HB (test code = 9729842260) 54.8 % 94.0-99.0 L %COHB ART (test code = 4105698529) 0.7 % 0.0-1.5 %METHB ART (test code = 6654543755) 0.4 % 0.4-1.5 VOL%O2 ART (test code = 3962503103) 5.5 % 15.0-23.0 L NA (test code = 0112522090) 133 mmol/L 135-145 L K+ (test code = 0788913106) 4.6 mmol/L 3.5-5.0 AC CA IONZ (test code = 7252726139) 4.30 mg/dL 4.50-5.30 L GLUCOSE (test code = 3234722690) 241 mg/dL 70-110 H LACTIC ACID (test code = 7067000824) 2.73 mmol/L 0.50-2.20 H Lab Interpretation (test code = 17900-8) Abnormal [facility] Packed RBC (in units)2023-02-16 13:29:02* Test Item Value Reference Range Interpretation Comme nts Cross Match Result (test code = 4409) Compatible ISBT Blood Type Code (test code = 583682) 5100 Unit Blood Type (test code = 4410) O Pos Unit Number (test code = 4411) [id number] Blood Expiration Date & Time (test code = 311809) [id number] Status Information (test code = 4412) Issued Product Identification (test code = 4413) Red Blood Cells Product Code (test code = 4414) [id number] Performed at [facility] Blood [address] [address]Ajgb Free: [phone] No. [id number] [facility] Packed RBC (in units)2023-02-16 13:29:02* Test Item Value Reference Range Interpretation Comme nts Cross Match Result (test code = 4409) Compatible ISBT Blood Type Code (test code = 624046) 5100 Unit Blood Type (test code = 4410) O Pos Unit Number (test code = 4411) [id number] Blood Expiration Date & Time (test code = 394474) [id number] Status Information (test code = 4412) Issued Product Identification (test code = 4413) Red Blood Cells Product Code (test code = 4414) [id number] Performed at [facility] Blood [address] [address]Myde Free: [phone] No. [id number] [facility] 12:34:28* Test Item Value Reference Range Interpretation Comme nts POCT GLU (test code = 0013009370) 234 mg/dL 70-110 H Lab Interpretation (test cod e = 29787-3) [facility]16 12:34:28* Test Item Value Reference Range Interpretation Comme [facility] POCT GLU (test code = 4052961788) 234 mg/dL 70-110 H Lab Interpretation (test cod e = 96826-2) [facility] + Lactic Acid While intubated 2023-02-16 09:57:54* Test Item Value Reference Range Interpretation Comme nts PH (test code = 2) 7.44 7.35-7.45 PCO2 (test code = 1356392582) 36 See_Comment [Automated messa ge] The system which generated this result transmitted reference range: 35 - 45 mmHg. The reference range was not used to interpret this result as normal/abnormal. PO2 (test code = 9149059389) 121 See_Comment H [Automated messa ge] The system which generated this result transmitted reference range: 80 - 100 mmHg. The reference range was not used to interpret this result as normal/abnormal. HCO3 (test code = 4728308408) 24 See_Comment [Automated messa ge] The system which generated this result transmitted reference range: 22 - 26 mEq/L. The reference range was not used to interpret this result as normal/abnormal. BE (test code = 5706791058) -0.2 See_Comment [Automated messa ge] The system which generated this result transmitted reference range: -3.0 - 3.0 mEq/L. The reference range was not used to interpret this result as normal/abnormal. THB (test code = 5141616992) 8.4 g/dL 13.5-18.0 L %O2HB (test code = 8765014589) 97.2 % 94.0-99.0 %COHB ART (test code = 6679960417) 0.3 % 0.0-1.5 %METHB ART (test code = 7223647404) 0.3 % 0.4-1.5 L VOL%O2 ART (test code = 7542016363) 11.7 % 15.0-23.0 L NA (test code = 3229119912) 134 mmol/L 135-145 L K+ (test code = 8830312358) 4.5 mmol/L 3.5-5.0 AC CA IONZ (test code = 6577114263) 4.40 mg/dL 4.50-5.30 L GLUCOSE (test code = 4818987918) 223 mg/dL 70-110 H LACTIC ACID (test code = 7982427798) 2.06 mmol/L 0.50-2.20 Lab Interpretation (test code = 03555-3) [facility] + Lactic Acid While intubated 2023-02-16 09:57:54* Test Item Value Reference Range Interpretation Comme nts PH (test code = 2) 7.44 7.35-7.45 PCO2 (test code = 2206847215) 36 See_Comment [Automated messa ge] The system which generated this result transmitted reference range: 35 - 45 mmHg. The reference range was not used to interpret this result as normal/abnormal. PO2 (test code = 3096050686) 121 See_Comment H [Automated messa ge] The system which generated this result transmitted reference range: 80 - 100 mmHg. The reference range was not used to interpret this result as normal/abnormal. HCO3 (test code = 0605909184) 24 See_Comment [Automated messa ge] The system which generated this result transmitted reference range: 22 - 26 mEq/L. The reference range was not used to interpret this result as normal/abnormal. BE (test code = 8098814439) -0.2 See_Comment [Automated messa ge] The system which generated this result transmitted reference range: -3.0 - 3.0 mEq/L. The reference range was not used to interpret this result as normal/abnormal. THB (test code = 1359186629) 8.4 g/dL 13.5-18.0 L %O2HB (test code = 2142689322) 97.2 % 94.0-99.0 %COHB ART (test code = 1290002379) 0.3 % 0.0-1.5 %METHB ART (test code = 1455255275) 0.3 % 0.4-1.5 L VOL%O2 ART (test code = 4388190888) 11.7 % 15.0-23.0 L NA (test code = 8395263497) 134 mmol/L 135-145 L K+ (test code = 1591493072) 4.5 mmol/L 3.5-5.0 AC CA IONZ (test code = 5864742393) 4.40 mg/dL 4.50-5.30 L GLUCOSE (test code = 5703841767) 223 mg/dL 70-110 H LACTIC ACID (test code = 4835650089) 2.06 mmol/L 0.50-2.20 Lab Interpretation (test code = 79746-1) Abnormal [facility] GLUCOSE (AUTOMATED)2023-02-16 09:49:07* Test Item Value Reference Range Interpretation Comme [facility] POCT GLU (test code = 1526024456) 230 mg/dL 70-110 H Lab Interpretation (test cod e = 09692-9) Abnormal [facility] GLUCOSE (AUTOMATED)2023-02-16 09:49:07* Test Item Value Reference Range Interpretation Comme [facility] POCT GLU (test code = 0710806271) 230 mg/dL 70-110 H Lab Interpretation (test cod e = 78582-6) [facility] Lactic Acid While intubated 2023-02-16 05:00:46* Test Item Value Reference Range Interpretation Comme nts PH (test code = 2) 7.45 7.35-7.45 PCO2 (test code = 5584018461) 33 See_Comment L [Automated messa ge] The system which generated this result transmitted reference range: 35 - 45 mmHg. The reference range was not used to interpret this result as normal/abnormal. PO2 (test code = 3509352815) 141 See_Comment H [Automated messa ge] The system which generated this result transmitted reference range: 80 - 100 mmHg. The reference range was not used to interpret this result as normal/abnormal. HCO3 (test code = 2879848726) 22 See_Comment [Automated messa ge] The system which generated this result transmitted reference range: 22 - 26 mEq/L. The reference range was not used to interpret this result as normal/abnormal. BE (test code = 8492361695) -1.6 See_Comment [Automated messa ge] The system which generated this result transmitted reference range: -3.0 - 3.0 mEq/L. The reference range was not used to interpret this result as normal/abnormal. THB (test code = 0637021788) 11.1 g/dL 13.5-18.0 L %O2HB (test code = 1086209466) 98.0 % 94.0-99.0 %COHB ART (test code = 6256595759) 0.3 % 0.0-1.5 %METHB ART (test code = 0413310710) 0.1 % 0.4-1.5 L VOL%O2 ART (test code = 3025527328) 15.6 % 15.0-23.0 NA (test code = 8393048356) 134 mmol/L 135-145 L K+ (test code = 0788687398) 4.6 mmol/L 3.5-5.0 AC CA IONZ (test code = 1284878295) 4.40 mg/dL 4.50-5.30 L GLUCOSE (test code = 9424919226) 215 mg/dL 70-110 H LACTIC ACID (test code = 2596570332) 2.23 mmol/L 0.50-2.20 H Lab Interpretation (test code = 47535-5) [facility] + Lactic Acid While intubated 2023-02-16 05:00:46* Test Item Value Reference Range Interpretation Comme nts PH (test code = 2) 7.45 7.35-7.45 PCO2 (test code = 5492227925) 33 See_Comment L [Automated messa ge] The system which generated this result transmitted reference range: 35 - 45 mmHg. The reference range was not used to interpret this result as normal/abnormal. PO2 (test code = 9251145602) 141 See_Comment H [Automated messa ge] The system which generated this result transmitted reference range: 80 - 100 mmHg. The reference range was not used to interpret this result as normal/abnormal. HCO3 (test code = 3444686188) 22 See_Comment [Automated messa ge] The system which generated this result transmitted reference range: 22 - 26 mEq/L. The reference range was not used to interpret this result as normal/abnormal. BE (test code = 4333786967) -1.6 See_Comment [Automated messa ge] The system which generated this result transmitted reference range: -3.0 - 3.0 mEq/L. The reference range was not used to interpret this result as normal/abnormal. THB (test code = 0601362819) 11.1 g/dL 13.5-18.0 L %O2HB (test code = 6632662508) 98.0 % 94.0-99.0 %COHB ART (test code = 8912860145) 0.3 % 0.0-1.5 %METHB ART (test code = 8638102163) 0.1 % 0.4-1.5 L VOL%O2 ART (test code = 7215562544) 15.6 % 15.0-23.0 NA (test code = 5030168387) 134 mmol/L 135-145 L K+ (test code = 6431816862) 4.6 mmol/L 3.5-5.0 AC CA IONZ (test code = 5277944828) 4.40 mg/dL 4.50-5.30 L GLUCOSE (test code = 6236009694) 215 mg/dL 70-110 H LACTIC ACID (test code = 2481546992) 2.23 mmol/L 0.50-2.20 H Lab Interpretation (test code = 95911-8) Abnormal [facility] GLUCOSE (AUTOMATED)2023-02-16 04:49:29* Test Item Value Reference Range Interpretation Comme nts POCT GLU (test code = 8987747307) 230 mg/dL 70-110 H Lab Interpretation (test cod e = 29518-0) Abnormal [facility] GLUCOSE (AUTOMATED)2023-02-16 04:49:29* Test Item Value Reference Range Interpretation Comme nts POCT GLU (test code = 0321395168) 230 mg/dL 70-110 H Lab Interpretation (test cod e = 73399-1) Abnormal [facility] GLUCOSE (AUTOMATED)2023-02-16 01:19:03* Test Item Value Reference Range Interpretation Comme nts POCT GLU (test code = 2296002062) 222 mg/dL 70-110 H Lab Interpretation (test cod e = 47783-3) Abnormal [facility] GLUCOSE (AUTOMATED)2023-02-16 01:19:03* Test Item Value Reference Range Interpretation Comme nts POCT GLU (test code = 9741712611) 222 mg/dL 70-110 H Lab Interpretation (test cod e = 64142-5) [facility] L[facility] [id number] 23:07:33* Test Item Value Reference Range Interpretation Comme nts PH (test code = 2) 7.44 7.35-7.45 PCO2 (test code = 0001562884) 31 See_Comment L [Automated messa ge] The system which generated this result transmitted reference range: 35 - 45 mmHg. The reference range was not used to interpret this result as normal/abnormal. PO2 (test code = 8354206075) 96 See_Comment [Automated messa ge] The system which generated this result transmitted reference range: 80 - 100 mmHg. The reference range was not used to interpret this result as normal/abnormal. HCO3 (test code = 9844677135) 21 See_Comment L [Automated messa ge] The system which generated this result transmitted reference range: 22 - 26 mEq/L. The reference range was not used to interpret this result as normal/abnormal. BE (test code = 4961933546) -3.2 See_Comment L [Automated messa ge] The system which generated this result transmitted reference range: -3.0 - 3.0 mEq/L. The reference range was not used to interpret this result as normal/abnormal. THB (test code = 8801701571) 8.9 g/dL 13.5-18.0 L %O2HB (test code = 3346263274) 95.6 % 94.0-99.0 %COHB ART (test code = 1424821543) 0.3 % 0.0-1.5 %METHB ART (test code = 4501253122) 0.3 % 0.4-1.5 L VOL%O2 ART (test code = 7996504307) 12.1 % 15.0-23.0 L NA (test code = 5383133966) 135 mmol/L 135-145 K+ (test code = 9264932050) 4.7 mmol/L 3.5-5.0 AC CA IONZ (test code = 4582552294) 4.50 mg/dL 4.50-5.30 GLUCOSE (test code = 7983036930) 202 mg/dL 70-110 H LACTIC ACID (test code = 0081825607) 2.68 mmol/L 0.50-2.20 H Lab Interpretation (test code = 02734-5) [facility] Lactic [id number] 23:07:33* Test Item Value Reference Range Interpretation Comme nts PH (test code = 2) 7.44 7.35-7.45 PCO2 (test code = 6537408121) 31 See_Comment L [Automated messa ge] The system which generated this result transmitted reference range: 35 - 45 mmHg. The reference range was not used to interpret this result as normal/abnormal. PO2 (test code = 4561235681) 96 See_Comment [Automated messa ge] The system which generated this result transmitted reference range: 80 - 100 mmHg. The reference range was not used to interpret this result as normal/abnormal. HCO3 (test code = 5181439511) 21 See_Comment L [Automated messa ge] The system which generated this result transmitted reference range: 22 - 26 mEq/L. The reference range was not used to interpret this result as normal/abnormal. BE (test code = 4227209358) -3.2 See_Comment L [Automated messa ge] The system which generated this result transmitted reference range: -3.0 - 3.0 mEq/L. The reference range was not used to interpret this result as normal/abnormal. THB (test code = 3546326932) 8.9 g/dL 13.5-18.0 L %O2HB (test code = 3762590248) 95.6 % 94.0-99.0 %COHB ART (test code = 3588320769) 0.3 % 0.0-1.5 %METHB ART (test code = 4247228759) 0.3 % 0.4-1.5 L VOL%O2 ART (test code = 5337250788) 12.1 % 15.0-23.0 L NA (test code = 3239582794) 135 mmol/L 135-145 K+ (test code = 2684320503) 4.7 mmol/L 3.5-5.0 AC CA IONZ (test code = 3747227741) 4.50 mg/dL 4.50-5.30 GLUCOSE (test code = 0009149543) 202 mg/dL 70-110 H LACTIC ACID (test code = 2376573020) 2.68 mmol/L 0.50-2.20 H Lab Interpretation (test code = 33818-2) Abnormal [facility] GLUCOSE (AUTOMATED)2023-02-15 20:29:21* Test Item Value Reference Range Interpretation Comme [facility] POCT GLU (test code = 8183936699) 225 mg/dL 70-110 H Lab Interpretation (test cod e = 17490-9) Abnormal [facility] GLUCOSE (AUTOMATED)2023-02-15 20:29:21* Test Item Value Reference Range Interpretation Comme [facility] POCT GLU (test code = 3765644584) 225 mg/dL 70-110 H Lab Interpretation (test cod e = 80633-1) [facility] Lactic Acid While intubated 2023-02-15 19:36:07* Test Item Value Reference Range Interpretation Comme [facility] PH (test code = 2) 7.43 7.35-7.45 PCO2 (test code = 3702149129) 35 See_Comment [Automated messa ge] The system which generated this result transmitted reference range: 35 - 45 mmHg. The reference range was not used to interpret this result as normal/abnormal. PO2 (test code = 9468134115) 89 See_Comment [Automated messa ge] The system which generated this result transmitted reference range: 80 - 100 mmHg. The reference range was not used to interpret this result as normal/abnormal. HCO3 (test code = 1960550304) 23 See_Comment [Automated messa ge] The system which generated this result transmitted reference range: 22 - 26 mEq/L. The reference range was not used to interpret this result as normal/abnormal. BE (test code = 6584033676) -1.2 See_Comment [Automated messa ge] The system which generated this result transmitted reference range: -3.0 - 3.0 mEq/L. The reference range was not used to interpret this result as normal/abnormal. THB (test code = 6129469428) 8.6 g/dL 13.5-18.0 L %O2HB (test code = 1749728487) 96.2 % 94.0-99.0 %COHB ART (test code = 7132015933) 0.2 % 0.0-1.5 %METHB ART (test code = 2142083578) 0.2 % 0.4-1.5 L VOL%O2 ART (test code = 0656142285) 11.8 % 15.0-23.0 L NA (test code = 4324691758) 135 mmol/L 135-145 K+ (test code = 3157274402) 4.8 mmol/L 3.5-5.0 AC CA IONZ (test code = 8212218052) 4.40 mg/dL 4.50-5.30 L GLUCOSE (test code = 8877817426) 213 mg/dL 70-110 H LACTIC ACID (test code = 4584995359) 3.19 mmol/L 0.50-2.20 H Lab Interpretation (test code = 63281-3) [facility] Lactic Acid While intubated 2023-02-15 19:36:07* Test Item Value Reference Range Interpretation Comme nts PH (test code = 2) 7.43 7.35-7.45 PCO2 (test code = 4188644810) 35 See_Comment [Automated messa ge] The system which generated this result transmitted reference range: 35 - 45 mmHg. The reference range was not used to interpret this result as normal/abnormal. PO2 (test code = 3612869685) 89 See_Comment [Automated messa ge] The system which generated this result transmitted reference range: 80 - 100 mmHg. The reference range was not used to interpret this result as normal/abnormal. HCO3 (test code = 9855455583) 23 See_Comment [Automated messa ge] The system which generated this result transmitted reference range: 22 - 26 mEq/L. The reference range was not used to interpret this result as normal/abnormal. BE (test code = 4222136194) -1.2 See_Comment [Automated messa ge] The system which generated this result transmitted reference range: -3.0 - 3.0 mEq/L. The reference range was not used to interpret this result as normal/abnormal. THB (test code = 9746059463) 8.6 g/dL 13.5-18.0 L %O2HB (test code = 4957945419) 96.2 % 94.0-99.0 %COHB ART (test code = 4291456099) 0.2 % 0.0-1.5 %METHB ART (test code = 9730856936) 0.2 % 0.4-1.5 L VOL%O2 ART (test code = 6174979174) 11.8 % 15.0-23.0 L NA (test code = 4266182807) 135 mmol/L 135-145 K+ (test code = 6154938256) 4.8 mmol/L 3.5-5.0 AC CA IONZ (test code = 0556885705) 4.40 mg/dL 4.50-5.30 L GLUCOSE (test code = 0759286081) 213 mg/dL 70-110 H LACTIC ACID (test code = 7685400978) 3.19 mmol/L 0.50-2.20 H Lab Interpretation (test code = 69565-4) Abnormal [facility] - [id number] 18:12:40* Test Item Value Reference Range Interpretation Comme nts HIT-Ab (test code = 49312-6) Negative Negative MIKAYLA (test code = MIKAYLA) Although a positiv e result obtained using this assay may indicate the presence of heparin-associated antibodies, a positive result DOES NOT CONFIRM the diagnosis of HIT. Some patiens may have naturally occurring antibodies to PF4. The positive or negative result should be used with other information, including the clinical context, in forming a diagnosis such as the ?4T score and the 2013 [employer] guidelines. Lab Interpretation (test code = 13391-0) Normal [facility]2023-06-16 18:12:40* Test Item Value Reference Range Interpretation Comme nts HIT-Ab (test code = 42526-7) Negative Negative MIKAYLA (test code = MIKAYLA) Although a positiv e result obtained using this assay may indicate the presence of heparin-associated antibodies, a positive result DOES NOT CONFIRM the diagnosis of HIT. Some patiens may have naturally occurring antibodies to PF4. The positive or negative result should be used with other information, including the clinical context, in forming a diagnosis such as the ?4T score and the 2013 [employer] guidelines. Lab Interpretation (test code = 59155-0) [facility] Lactic Acid While intubated 2023-02-15 17:37:10* Test Item Value Reference Range Interpretation Comme nts PH (test code = 2) 7.47 7.35-7.45 H PCO2 (test code = 7392398591) 28 See_Comment L [Automated messa ge] The system which generated this result transmitted reference range: 35 - 45 mmHg. The reference range was not used to interpret this result as normal/abnormal. PO2 (test code = 4146771252) 62 See_Comment L [Automated messa ge] The system which generated this result transmitted reference range: 80 - 100 mmHg. The reference range was not used to interpret this result as normal/abnormal. HCO3 (test code = 3220889531) 20 See_Comment L [Automated messa ge] The system which generated this result transmitted reference range: 22 - 26 mEq/L. The reference range was not used to interpret this result as normal/abnormal. BE (test code = 3315583430) -3.2 See_Comment L [Automated messa ge] The system which generated this result transmitted reference range: -3.0 - 3.0 mEq/L. The reference range was not used to interpret this result as normal/abnormal. THB (test code = 6811208952) 8.1 g/dL 13.5-18.0 LL %O2HB (test code = 8536222893) 91.0 % 94.0-99.0 L %COHB ART (test code = 9406455686) 0.3 % 0.0-1.5 %METHB ART (test code = 1593695447) 0.3 % 0.4-1.5 L VOL%O2 ART (test code = 9707284078) 10.4 % 15.0-23.0 L NA (test code = 8795002407) 134 mmol/L 135-145 L K+ (test code = 3247625916) 4.7 mmol/L 3.5-5.0 AC CA IONZ (test code = 5897264121) 4.40 mg/dL 4.50-5.30 L GLUCOSE (test code = 9997517565) 197 mg/dL 70-110 H LACTIC ACID (test code = 5993952220) 3.31 mmol/L 0.50-2.20 H Lab Interpretation (test code = 45308-2) [facility] Lactic Acid While intubated 2023-02-15 17:37:10* Test Item Value Reference Range Interpretation Comme nts PH (test code = 2) 7.47 7.35-7.45 H PCO2 (test code = 4274422487) 28 See_Comment L [Automated messa ge] The system which generated this result transmitted reference range: 35 - 45 mmHg. The reference range was not used to interpret this result as normal/abnormal. PO2 (test code = 2214306085) 62 See_Comment L [Automated messa ge] The system which generated this result transmitted reference range: 80 - 100 mmHg. The reference range was not used to interpret this result as normal/abnormal. HCO3 (test code = 2897458812) 20 See_Comment L [Automated messa ge] The system which generated this result transmitted reference range: 22 - 26 mEq/L. The reference range was not used to interpret this result as normal/abnormal. BE (test code = 4676357936) -3.2 See_Comment L [Automated messa ge] The system which generated this result transmitted reference range: -3.0 - 3.0 mEq/L. The reference range was not used to interpret this result as normal/abnormal. THB (test code = 5587782556) 8.1 g/dL 13.5-18.0 LL %O2HB (test code = 7037368797) 91.0 % 94.0-99.0 L %COHB ART (test code = 6728122626) 0.3 % 0.0-1.5 %METHB ART (test code = 9268536739) 0.3 % 0.4-1.5 L VOL%O2 ART (test code = 4732951811) 10.4 % 15.0-23.0 L NA (test code = 4326480384) 134 mmol/L 135-145 L K+ (test code = 5541913815) 4.7 mmol/L 3.5-5.0 AC CA IONZ (test code = 4172403279) 4.40 mg/dL 4.50-5.30 L GLUCOSE (test code = 9791023363) 197 mg/dL 70-110 H LACTIC ACID (test code = 3765004842) 3.31 mmol/L 0.50-2.20 H Lab Interpretation (test code = 87001-6) Abnormal [facility] GLUCOSE (AUTOMATED)2023-02-15 17:30:11* Test Item Value Reference Range Interpretation Comme nts POCT GLU (test code = 9862362700) 212 mg/dL 70-110 H Lab Interpretation (test cod e = 29961-1) [facility] 17:30:11* Test Item Value Reference Range Interpretation Comme nts POCT GLU (test code = 5110174382) 212 mg/dL 70-110 H Lab Interpretation (test cod e = 22813-3) [facility] Lactic Acid While intubated 2023-02-15 16:08:04* Test Item Value Reference Range Interpretation Comme nts PH (test code = 2) 7.45 7.35-7.45 PCO2 (test code = 7534139921) 30 See_Comment L [Automated messa ge] The system which generated this result transmitted reference range: 35 - 45 mmHg. The reference range was not used to interpret this result as normal/abnormal. PO2 (test code = 8405829757) 63 See_Comment L [Automated messa ge] The system which generated this result transmitted reference range: 80 - 100 mmHg. The reference range was not used to interpret this result as normal/abnormal. HCO3 (test code = 9209499528) 21 See_Comment L [Automated messa ge] The system which generated this result transmitted reference range: 22 - 26 mEq/L. The reference range was not used to interpret this result as normal/abnormal. BE (test code = 5940019771) -2.6 See_Comment [Automated messa ge] The system which generated this result transmitted reference range: -3.0 - 3.0 mEq/L. The reference range was not used to interpret this result as normal/abnormal. THB (test code = 9082109327) 10.9 g/dL 13.5-18.0 L %O2HB (test code = 3772262792) 92.4 % 94.0-99.0 L %COHB ART (test code = 1493013504) 0.1 % 0.0-1.5 %METHB ART (test code = 3653340315) 0.1 % 0.4-1.5 L VOL%O2 ART (test code = 3610583866) 14.2 % 15.0-23.0 L NA (test code = 1620513554) 135 mmol/L 135-145 K+ (test code = 4589984633) 4.7 mmol/L 3.5-5.0 AC CA IONZ (test code = 8587680077) 4.50 mg/dL 4.50-5.30 GLUCOSE (test code = 9777478085) 193 mg/dL 70-110 H LACTIC ACID (test code = 0862344141) 3.58 mmol/L 0.50-2.20 H Lab Interpretation (test code = 68707-1) [facility] Lactic Acid While intubated 2023-02-15 16:08:04* Test Item Value Reference Range Interpretation Comme nts PH (test code = 2) 7.45 7.35-7.45 PCO2 (test code = 0849451362) 30 See_Comment L [Automated messa ge] The system which generated this result transmitted reference range: 35 - 45 mmHg. The reference range was not used to interpret this result as normal/abnormal. PO2 (test code = 4843060528) 63 See_Comment L [Automated messa ge] The system which generated this result transmitted reference range: 80 - 100 mmHg. The reference range was not used to interpret this result as normal/abnormal. HCO3 (test code = 3918385282) 21 See_Comment L [Automated messa ge] The system which generated this result transmitted reference range: 22 - 26 mEq/L. The reference range was not used to interpret this result as normal/abnormal. BE (test code = 4629897988) -2.6 See_Comment [Automated messa ge] The system which generated this result transmitted reference range: -3.0 - 3.0 mEq/L. The reference range was not used to interpret this result as normal/abnormal. THB (test code = 4439163116) 10.9 g/dL 13.5-18.0 L %O2HB (test code = 2108203674) 92.4 % 94.0-99.0 L %COHB ART (test code = 1544916402) 0.1 % 0.0-1.5 %METHB ART (test code = 4560735886) 0.1 % 0.4-1.5 L VOL%O2 ART (test code = 3609072070) 14.2 % 15.0-23.0 L NA (test code = 7827326251) 135 mmol/L 135-145 K+ (test code = 0916436643) 4.7 mmol/L 3.5-5.0 AC CA IONZ (test code = 6301885237) 4.50 mg/dL 4.50-5.30 GLUCOSE (test code = 6314984304) 193 mg/dL 70-110 H LACTIC ACID (test code = 0986792387) 3.58 mmol/L 0.50-2.20 H Lab Interpretation (test code = 09675-0) Abnormal [facility] GLUCOSE (AUTOMATED)2023-02-15 15:46:27* Test Item Value Reference Range Interpretation Comme [facility] POCT GLU (test code = 5961175922) 203 mg/dL 70-110 H Lab Interpretation (test cod e = 45530-4) Abnormal [facility] GLUCOSE (AUTOMATED)2023-02-15 15:46:27* Test Item Value Reference Range Interpretation Comme [facility] POCT GLU (test code = 0377900836) 203 mg/dL 70-110 H Lab Interpretation (test cod e = 84003-8) [facility] + Lactic [id number] 13:25:06* Test Item Value Reference Range Interpretation Comme [facility] PH (test code = 2) 7.45 7.35-7.45 PCO2 (test code = 5905749859) 33 See_Comment L [Automated messa ge] The system which generated this result transmitted reference range: 35 - 45 mmHg. The reference range was not used to interpret this result as normal/abnormal. PO2 (test code = 2534250410) 111 See_Comment H [Automated messa ge] The system which generated this result transmitted reference range: 80 - 100 mmHg. The reference range was not used to interpret this result as normal/abnormal. HCO3 (test code = 8253945322) 22 See_Comment [Automated messa ge] The system which generated this result transmitted reference range: 22 - 26 mEq/L. The reference range was not used to interpret this result as normal/abnormal. BE (test code = 0211440192) -1.3 See_Comment [Automated messa ge] The system which generated this result transmitted reference range: -3.0 - 3.0 mEq/L. The reference range was not used to interpret this result as normal/abnormal. THB (test code = 8653537831) 9.5 g/dL 13.5-18.0 L %O2HB (test code = 3327914798) 97.3 % 94.0-99.0 %COHB ART (test code = 8107789426) 0.3 % 0.0-1.5 %METHB ART (test code = 8933794753) 0.1 % 0.4-1.5 L VOL%O2 ART (test code = 8334804663) 13.2 % 15.0-23.0 L NA (test code = 4735837284) 134 mmol/L 135-145 L K+ (test code = 8158890706) 4.5 mmol/L 3.5-5.0 AC CA IONZ (test code = 2282632039) 4.60 mg/dL 4.50-5.30 GLUCOSE (test code = 5194615264) 153 mg/dL 70-110 H LACTIC ACID (test code = 4777272476) 2.74 mmol/L 0.50-2.20 H Lab Interpretation (test code = 19189-2) [facility] Lactic [id number] 13:25:06* Test Item Value Reference Range Interpretation Comme nts PH (test code = 2) 7.45 7.35-7.45 PCO2 (test code = 9573907953) 33 See_Comment L [Automated messa ge] The system which generated this result transmitted reference range: 35 - 45 mmHg. The reference range was not used to interpret this result as normal/abnormal. PO2 (test code = 3807914136) 111 See_Comment H [Automated messa ge] The system which generated this result transmitted reference range: 80 - 100 mmHg. The reference range was not used to interpret this result as normal/abnormal. HCO3 (test code = 3962887304) 22 See_Comment [Automated messa ge] The system which generated this result transmitted reference range: 22 - 26 mEq/L. The reference range was not used to interpret this result as normal/abnormal. BE (test code = 7435347862) -1.3 See_Comment [Automated messa ge] The system which generated this result transmitted reference range: -3.0 - 3.0 mEq/L. The reference range was not used to interpret this result as normal/abnormal. THB (test code = 0417230722) 9.5 g/dL 13.5-18.0 L %O2HB (test code = 0001885708) 97.3 % 94.0-99.0 %COHB ART (test code = 5433223701) 0.3 % 0.0-1.5 %METHB ART (test code = 0642999199) 0.1 % 0.4-1.5 L VOL%O2 ART (test code = 9747071089) 13.2 % 15.0-23.0 L NA (test code = 1465568750) 134 mmol/L 135-145 L K+ (test code = 5234039883) 4.5 mmol/L 3.5-5.0 AC CA IONZ (test code = 9367730786) 4.60 mg/dL 4.50-5.30 GLUCOSE (test code = 9739954357) 153 mg/dL 70-110 H LACTIC ACID (test code = 0473840685) 2.74 mmol/L 0.50-2.20 H Lab Interpretation (test code = 07123-7) Abnormal [facility] GLUCOSE (AUTOMATED)2023-02-15 13:25:01* Test Item Value Reference Range Interpretation Comme nts POCT GLU (test code = 7308635386) 157 mg/dL 70-110 H Lab Interpretation (test cod e = 20354-9) Abnormal [facility] GLUCOSE (AUTOMATED)2023-02-15 13:25:01* Test Item Value Reference Range Interpretation Comme nts POCT GLU (test code = 5041495695) 157 mg/dL 70-110 H Lab Interpretation (test cod e = 86645-6) Abnormal [facility] GLUCOSE (AUTOMATED)2023-02-15 11:04:08* Test Item Value Reference Range Interpretation Comme nts POCT GLU (test code = 1012960005) 178 mg/dL 70-110 H Lab Interpretation (test cod e = 44373-3) Abnormal [facility] GLUCOSE (AUTOMATED)2023-02-15 11:04:08* Test Item Value Reference Range Interpretation Comme nts POCT GLU (test code = 7435476555) 178 mg/dL 70-110 H Lab Interpretation (test cod e = 57475-3) Abnormal [facility] GLUCOSE (AUTOMATED)2023-02-15 10:04:25* Test Item Value Reference Range Interpretation Comme [facility] POCT GLU (test code = 9328819224) 191 mg/dL 70-110 H Lab Interpretation (test cod e = 82413-7) Abnormal [facility] GLUCOSE (AUTOMATED)2023-02-15 10:04:25* Test Item Value Reference Range Interpretation Comme [facility] POCT GLU (test code = 3365052300) 191 mg/dL 70-110 H Lab Interpretation (test cod e = 03701-4) [facility] L[facility] Acid While intubated 2023-02-15 09:27:31* Test Item Value Reference Range Interpretation Comme [facility] PH (test code = 2) 7.42 7.35-7.45 PCO2 (test code = 0940247982) 34 See_Comment L [Automated messa ge] The system which generated this result transmitted reference range: 35 - 45 mmHg. The reference range was not used to interpret this result as normal/abnormal. PO2 (test code = 4142895835) 158 See_Comment H [Automated messa ge] The system which generated this result transmitted reference range: 80 - 100 mmHg. The reference range was not used to interpret this result as normal/abnormal. HCO3 (test code = 8520405498) 21 See_Comment L [Automated messa ge] The system which generated this result transmitted reference range: 22 - 26 mEq/L. The reference range was not used to interpret this result as normal/abnormal. BE (test code = 3993201876) -2.5 See_Comment [Automated messa ge] The system which generated this result transmitted reference range: -3.0 - 3.0 mEq/L. The reference range was not used to interpret this result as normal/abnormal. THB (test code = 5937300501) 13.4 g/dL 13.5-18.0 L %O2HB (test code = 5213557089) 98.3 % 94.0-99.0 %COHB ART (test code = 3441025902) 0.2 % 0.0-1.5 %METHB ART (test code = 1702105703) 0.1 % 0.4-1.5 L VOL%O2 ART (test code = 6618435921) 18.8 % 15.0-23.0 NA (test code = 9250314653) 136 mmol/L 135-145 K+ (test code = 9522479121) 4.9 mmol/L 3.5-5.0 AC CA IONZ (test code = 0373243003) 4.40 mg/dL 4.50-5.30 L GLUCOSE (test code = 7183384448) 171 mg/dL 70-110 H LACTIC ACID (test code = 9003801347) 3.30 mmol/L 0.50-2.20 H Lab Interpretation (test code = 14753-7) [facility] L[facility] Acid While intubated 2023-02-15 09:27:31* Test Item Value Reference Range Interpretation Comme nts PH (test code = 2) 7.42 7.35-7.45 PCO2 (test code = 6972823896) 34 See_Comment L [Automated messa ge] The system which generated this result transmitted reference range: 35 - 45 mmHg. The reference range was not used to interpret this result as normal/abnormal. PO2 (test code = 8649992862) 158 See_Comment H [Automated messa ge] The system which generated this result transmitted reference range: 80 - 100 mmHg. The reference range was not used to interpret this result as normal/abnormal. HCO3 (test code = 5905390537) 21 See_Comment L [Automated messa ge] The system which generated this result transmitted reference range: 22 - 26 mEq/L. The reference range was not used to interpret this result as normal/abnormal. BE (test code = 9017985252) -2.5 See_Comment [Automated messa ge] The system which generated this result transmitted reference range: -3.0 - 3.0 mEq/L. The reference range was not used to interpret this result as normal/abnormal. THB (test code = 0467811176) 13.4 g/dL 13.5-18.0 L %O2HB (test code = 1800103337) 98.3 % 94.0-99.0 %COHB ART (test code = 5352015641) 0.2 % 0.0-1.5 %METHB ART (test code = [id number]) 0.1 % 0.4-1.5 L VOL%O2 ART (test code = 6614270802) 18.8 % 15.0-23.0 NA (test code = 3596967619) 136 mmol/L 135-145 K+ (test code = 1618399885) 4.9 mmol/L 3.5-5.0 AC CA IONZ (test code = 5336925544) 4.40 mg/dL 4.50-5.30 L GLUCOSE (test code = 0316654812) 171 mg/dL 70-110 H LACTIC ACID (test code = 1688393095) 3.30 mmol/L 0.50-2.20 H Lab Interpretation (test code = 06420-8) Abnormal [facility] GLUCOSE (AUTOMATED)2023-02-15 09:05:17* Test Item Value Reference Range Interpretation Comme nts POCT GLU (test code = 3968875221) 189 mg/dL 70-110 H Lab Interpretation (test cod e = 34150-8) Abnormal [facility] GLUCOSE (AUTOMATED)2023-02-15 09:05:17* Test Item Value Reference Range Interpretation Comme nts POCT GLU (test code = 8482901485) 189 mg/dL 70-110 H Lab Interpretation (test cod e = 05410-9) Abnormal [facility] GLUCOSE (AUTOMATED)2023-02-15 08:15:29* Test Item Value Reference Range Interpretation Comme nts POCT GLU (test code = 4210290776) 183 mg/dL 70-110 H Lab Interpretation (test cod e = 84027-7) Abnormal [facility] GLUCOSE (AUTOMATED)2023-02-15 08:15:29* Test Item Value Reference Range Interpretation Comme nts POCT GLU (test code = 0654198876) 183 mg/dL 70-110 H Lab Interpretation (test cod e = 07222-8) Abnormal [facility] GLUCOSE (AUTOMATED)2023-02-15 07:01:57* Test Item Value Reference Range Interpretation Comme nts POCT GLU (test code = 6576213091) 180 mg/dL 70-110 H Lab Interpretation (test cod e = 63900-8) Abnormal [facility] GLUCOSE (AUTOMATED)2023-02-15 07:01:57* Test Item Value Reference Range Interpretation Comme nts POCT GLU (test code = 1024085449) 180 mg/dL 70-110 H Lab Interpretation (test cod e = 58284-3) Abnormal [facility] GLUCOSE (AUTOMATED)2023-02-15 06:10:59* Test Item Value Reference Range Interpretation Comme nts POCT GLU (test code = 3336938595) 176 mg/dL 70-110 H Lab Interpretation (test cod e = 32776-3) Abnormal [facility] GLUCOSE (AUTOMATED)2023-02-15 06:10:59* Test Item Value Reference Range Interpretation Comme nts POCT GLU (test code = 1126934181) 176 mg/dL 70-110 H Lab Interpretation (test cod e = 68583-2) Abnormal [facility] GLUCOSE (AUTOMATED)2023-02-15 06:08:16* Test Item Value Reference Range Interpretation Comme nts POCT GLU (test code = 9054904252) 174 mg/dL 70-110 H Lab Interpretation (test cod e = 20307-7) Abnormal [facility] GLUCOSE (AUTOMATED)2023-02-15 06:08:16* Test Item Value Reference Range Interpretation Comme nts POCT GLU (test code = 4451045522) 182 mg/dL 70-110 H Lab Interpretation (test cod e = 10624-3) Abnormal [facility] GLUCOSE (AUTOMATED)2023-02-15 06:08:16* Test Item Value Reference Range Interpretation Comme nts POCT GLU (test code = 5920999219) 174 mg/dL 70-110 H Lab Interpretation (test cod e = 85564-2) Abnormal [facility] GLUCOSE (AUTOMATED)2023-02-15 06:08:16* Test Item Value Reference Range Interpretation Comme nts POCT GLU (test code = 6031515665) 182 mg/dL 70-110 H Lab Interpretation (test cod e = 31271-1) [facility] While [facility] 2023-02-15 05:26:04* Test Item Value Reference Range Interpretation Comme nts PH (test code = 2) 7.44 7.35-7.45 PCO2 (test code = 9523287745) 28 See_Comment L [Automated messa ge] The system which generated this result transmitted reference range: 35 - 45 mmHg. The reference range was not used to interpret this result as normal/abnormal. PO2 (test code = 1911304039) 82 See_Comment [Automated messa ge] The system which generated this result transmitted reference range: 80 - 100 mmHg. The reference range was not used to interpret this result as normal/abnormal. HCO3 (test code = 9980306297) 19 See_Comment L [Automated messa ge] The system which generated this result transmitted reference range: 22 - 26 mEq/L. The reference range was not used to interpret this result as normal/abnormal. BE (test code = 7853104775) -4.3 See_Comment L [Automated messa ge] The system which generated this result transmitted reference range: -3.0 - 3.0 mEq/L. The reference range was not used to interpret this result as normal/abnormal. THB (test code = 2768976032) 11.6 g/dL 13.5-18.0 L %O2HB (test code = 6618286447) 95.5 % 94.0-99.0 %COHB ART (test code = 4183763294) 0.0 % 0.0-1.5 %METHB ART (test code = 6062557992) 0.1 % 0.4-1.5 L VOL%O2 ART (test code = 4478669116) 15.7 % 15.0-23.0 NA (test code = 7048357200) 134 mmol/L 135-145 L K+ (test code = 4868143100) 5.1 mmol/L 3.5-5.0 H AC CA IONZ (test code = 1435252858) 4.50 mg/dL 4.50-5.30 GLUCOSE (test code = 9760848169) 166 mg/dL 70-110 H LACTIC ACID (test code = 4330250727) 3.38 mmol/L 0.50-2.20 H Lab Interpretation (test code = 26632-1) [facility] L[facility] While [facility]ubated 2023-02-15 05:26:04* Test Item Value Reference Range Interpretation Comme nts PH (test code = 2) 7.44 7.35-7.45 PCO2 (test code = 3828917000) 28 See_Comment L [Automated messa ge] The system which generated this result transmitted reference range: 35 - 45 mmHg. The reference range was not used to interpret this result as normal/abnormal. PO2 (test code = 7459298021) 82 See_Comment [Automated messa ge] The system which generated this result transmitted reference range: 80 - 100 mmHg. The reference range was not used to interpret this result as normal/abnormal. HCO3 (test code = 3046243100) 19 See_Comment L [Automated messa ge] The system which generated this result transmitted reference range: 22 - 26 mEq/L. The reference range was not used to interpret this result as normal/abnormal. BE (test code = 4416488457) -4.3 See_Comment L [Automated messa ge] The system which generated this result transmitted reference range: -3.0 - 3.0 mEq/L. The reference range was not used to interpret this result as normal/abnormal. THB (test code = 2471983056) 11.6 g/dL 13.5-18.0 L %O2HB (test code = 6280201864) 95.5 % 94.0-99.0 %COHB ART (test code = 1616609076) 0.0 % 0.0-1.5 %METHB ART (test code = 2152118201) 0.1 % 0.4-1.5 L VOL%O2 ART (test code = 0440010345) 15.7 % 15.0-23.0 NA (test code = 0972606473) 134 mmol/L 135-145 L K+ (test code = 2159833361) 5.1 mmol/L 3.5-5.0 H AC CA IONZ (test code = 8989439673) 4.50 mg/dL 4.50-5.30 GLUCOSE (test code = 2727729549) 166 mg/dL 70-110 H LACTIC ACID (test code = 4305277382) 3.38 mmol/L 0.50-2.20 H Lab Interpretation (test code = 00210-2) Abnormal [facility] GLUCOSE (AUTOMATED)2023-02-15 03:12:50* Test Item Value Reference Range Interpretation Comme nts POCT GLU (test code = 4643968921) 175 mg/dL 70-110 H Lab Interpretation (test cod e = 54326-5) Abnormal [facility] GLUCOSE (AUTOMATED)2023-02-15 03:12:50* Test Item Value Reference Range Interpretation Comme nts POCT GLU (test code = 0362466092) 175 mg/dL 70-110 H Lab Interpretation (test cod e = 15153-0) Abnormal [facility] GLUCOSE (AUTOMATED)2023-02-15 02:21:27* Test Item Value Reference Range Interpretation Comme nts POCT GLU (test code = 6057720512) 176 mg/dL 70-110 H Lab Interpretation (test cod e = 01885-1) Abnormal [facility] GLUCOSE (AUTOMATED)2023-02-15 02:21:27* Test Item Value Reference Range Interpretation Comme nts POCT GLU (test code = 0144851508) 176 mg/dL 70-110 H Lab Interpretation (test cod e = 97994-0) [facility] Lactic [id number] 01:32:32* Test Item Value Reference Range Interpretation Comme nts PH (test code = 2) 7.41 7.35-7.45 PCO2 (test code = 7792133387) 34 See_Comment L [Automated messa ge] The system which generated this result transmitted reference range: 35 - 45 mmHg. The reference range was not used to interpret this result as normal/abnormal. PO2 (test code = 6953945552) 114 See_Comment H [Automated messa ge] The system which generated this result transmitted reference range: 80 - 100 mmHg. The reference range was not used to interpret this result as normal/abnormal. HCO3 (test code = 8513055185) 21 See_Comment L [Automated messa ge] The system which generated this result transmitted reference range: 22 - 26 mEq/L. The reference range was not used to interpret this result as normal/abnormal. BE (test code = 1847346283) -3.2 See_Comment L [Automated messa ge] The system which generated this result transmitted reference range: -3.0 - 3.0 mEq/L. The reference range was not used to interpret this result as normal/abnormal. THB (test code = 4835277327) 9.5 g/dL 13.5-18.0 L %O2HB (test code = 7080396021) 97.1 % 94.0-99.0 %COHB ART (test code = 2952585382) 0.3 % 0.0-1.5 %METHB ART (test code = 4365939536) 0.2 % 0.4-1.5 L VOL%O2 ART (test code = 2931751533) 13.2 % 15.0-23.0 L NA (test code = 0157568598) 134 mmol/L 135-145 L K+ (test code = 9228316259) 4.9 mmol/L 3.5-5.0 AC CA IONZ (test code = 1406559258) 4.50 mg/dL 4.50-5.30 GLUCOSE (test code = 0125606070) 138 mg/dL 70-110 H LACTIC ACID (test code = 5412086914) 4.24 mmol/L 0.50-2.20 H Lab Interpretation (test code = 20679-9) [facility] Lactic [id number] 01:32:32* Test Item Value Reference Range Interpretation Comme nts PH (test code = 2) 7.41 7.35-7.45 PCO2 (test code = 7806632002) 34 See_Comment L [Automated messa ge] The system which generated this result transmitted reference range: 35 - 45 mmHg. The reference range was not used to interpret this result as normal/abnormal. PO2 (test code = 1946936291) 114 See_Comment H [Automated messa ge] The system which generated this result transmitted reference range: 80 - 100 mmHg. The reference range was not used to interpret this result as normal/abnormal. HCO3 (test code = 4258154154) 21 See_Comment L [Automated messa ge] The system which generated this result transmitted reference range: 22 - 26 mEq/L. The reference range was not used to interpret this result as normal/abnormal. BE (test code = 3735638219) -3.2 See_Comment L [Automated messa ge] The system which generated this result transmitted reference range: -3.0 - 3.0 mEq/L. The reference range was not used to interpret this result as normal/abnormal. THB (test code = 2607451993) 9.5 g/dL 13.5-18.0 L %O2HB (test code = 5491101475) 97.1 % 94.0-99.0 %COHB ART (test code = 4830035956) 0.3 % 0.0-1.5 %METHB ART (test code = 7424220301) 0.2 % 0.4-1.5 L VOL%O2 ART (test code = 2385945673) 13.2 % 15.0-23.0 L NA (test code = 4647534448) 134 mmol/L 135-145 L K+ (test code = 8854349869) 4.9 mmol/L 3.5-5.0 AC CA IONZ (test code = 2250980416) 4.50 mg/dL 4.50-5.30 GLUCOSE (test code = 9553068854) 138 mg/dL 70-110 H LACTIC ACID (test code = 8042970282) 4.24 mmol/L 0.50-2.20 H Lab Interpretation (test code = 70877-6) Abnormal [facility] GLUCOSE (AUTOMATED)2023-02-15 01:19:32* Test Item Value Reference Range Interpretation Comme nts POCT GLU (test code = 5222238444) 139 mg/dL 70-110 H Lab Interpretation (test cod e = 65168-5) Abnormal [facility] GLUCOSE (AUTOMATED)2023-02-15 01:19:32* Test Item Value Reference Range Interpretation Comme nts POCT GLU (test code = 0496247117) 139 mg/dL 70-110 H Lab Interpretation (test cod e = 97227-1) Abnormal [facility] GLUCOSE (AUTOMATED)2023-02-14 23:47:10* Test Item Value Reference Range Interpretation Comme nts POCT GLU (test code = 8129128593) 164 mg/dL 70-110 H Lab Interpretation (test cod e = 98325-5) Abnormal [facility] GLUCOSE (AUTOMATED)2023-02-14 23:47:10* Test Item Value Reference Range Interpretation Comme nts POCT GLU (test code = 7483520328) 164 mg/dL 70-110 H Lab Interpretation (test cod e = 11782-1) Abnormal [facility] GLUCOSE (AUTOMATED)2023-02-14 22:58:37* Test Item Value Reference Range Interpretation Comme nts POCT GLU (test code = 3321517719) 173 mg/dL 70-110 H Lab Interpretation (test cod e = 91476-5) Abnormal [facility] GLUCOSE (AUTOMATED)2023-02-14 22:58:37* Test Item Value Reference Range Interpretation Comme nts POCT GLU (test code = 2964246413) 173 mg/dL 70-110 H Lab Interpretation (test cod e = 63957-8) [facility] Lactic Acid While [facility]ubated 2023-02-14 22:08:21* Test Item Value Reference Range Interpretation Comme nts PH (test code = 2) 7.42 7.35-7.45 PCO2 (test code = 6108977272) 31 See_Comment L [Automated messa ge] The system which generated this result transmitted reference range: 35 - 45 mmHg. The reference range was not used to interpret this result as normal/abnormal. PO2 (test code = 1292184970) 109 See_Comment H [Automated messa ge] The system which generated this result transmitted reference range: 80 - 100 mmHg. The reference range was not used to interpret this result as normal/abnormal. HCO3 (test code = 2908220043) 20 See_Comment L [Automated messa ge] The system which generated this result transmitted reference range: 22 - 26 mEq/L. The reference range was not used to interpret this result as normal/abnormal. BE (test code = 8925819399) -4.3 See_Comment L [Automated messa ge] The system which generated this result transmitted reference range: -3.0 - 3.0 mEq/L. The reference range was not used to interpret this result as normal/abnormal. THB (test code = 9070067521) 8.9 g/dL 13.5-18.0 L %O2HB (test code = 7543522002) 96.8 % 94.0-99.0 %COHB ART (test code = 6642470136) 0.3 % 0.0-1.5 %METHB ART (test code = 8962927222) 0.2 % 0.4-1.5 L VOL%O2 ART (test code = 2975709875) 12.3 % 15.0-23.0 L NA (test code = 4071485303) 134 mmol/L 135-145 L K+ (test code = 0605351190) 5.2 mmol/L 3.5-5.0 H AC CA IONZ (test code = 9667461508) 4.60 mg/dL 4.50-5.30 GLUCOSE (test code = 4511333941) 167 mg/dL 70-110 H LACTIC ACID (test code = 1797466377) 4.33 mmol/L 0.50-2.20 H Lab Interpretation (test code = 14507-4) [facility] L[facility] Acid While intubated 2023-02-14 22:08:21* Test Item Value Reference Range Interpretation Comme nts PH (test code = 2) 7.42 7.35-7.45 PCO2 (test code = 3556407418) 31 See_Comment L [Automated messa ge] The system which generated this result transmitted reference range: 35 - 45 mmHg. The reference range was not used to interpret this result as normal/abnormal. PO2 (test code = 4329713702) 109 See_Comment H [Automated messa ge] The system which generated this result transmitted reference range: 80 - 100 mmHg. The reference range was not used to interpret this result as normal/abnormal. HCO3 (test code = 7589052935) 20 See_Comment L [Automated messa ge] The system which generated this result transmitted reference range: 22 - 26 mEq/L. The reference range was not used to interpret this result as normal/abnormal. BE (test code = 9009498130) -4.3 See_Comment L [Automated messa ge] The system which generated this result transmitted reference range: -3.0 - 3.0 mEq/L. The reference range was not used to interpret this result as normal/abnormal. THB (test code = 5534259433) 8.9 g/dL 13.5-18.0 L %O2HB (test code = 4391268192) 96.8 % 94.0-99.0 %COHB ART (test code = 0336908889) 0.3 % 0.0-1.5 %METHB ART (test code = 1745037345) 0.2 % 0.4-1.5 L VOL%O2 ART (test code = 6290896939) 12.3 % 15.0-23.0 L NA (test code = 5582200551) 134 mmol/L 135-145 L K+ (test code = 6301875953) 5.2 mmol/L 3.5-5.0 H AC CA IONZ (test code = 7279437716) 4.60 mg/dL 4.50-5.30 GLUCOSE (test code = 8290445945) 167 mg/dL 70-110 H LACTIC ACID (test code = 7582131214) 4.33 mmol/L 0.50-2.20 H Lab Interpretation (test code = 34493-5) [facility]GLU[facility]CA2+ (While Intubated) 2023-02-14 20:29:29* Test Item Value Reference Range Interpretation Comme nts PH (test code = 2) 7.45 7.35-7.45 PCO2 (test code = 1330878840) 30 See_Comment L [Automated messa ge] The system which generated this result transmitted reference range: 35 - 45 mmHg. The reference range was not used to interpret this result as normal/abnormal. PO2 (test code = 2131504221) 82 See_Comment [Automated messa ge] The system which generated this result transmitted reference range: 80 - 100 mmHg. The reference range was not used to interpret this result as normal/abnormal. HCO3 (test code = 9886554880) 20 See_Comment L [Automated messa ge] The system which generated this result transmitted reference range: 22 - 26 mEq/L. The reference range was not used to interpret this result as normal/abnormal. BE (test code = 9299056284) -3.3 See_Comment L [Automated messa ge] The system which generated this result transmitted reference range: -3.0 - 3.0 mEq/L. The reference range was not used to interpret this result as normal/abnormal. THB (test code = 7267890471) 8.8 g/dL 13.5-18.0 L %O2HB (test code = 9590217528) 95.4 % 94.0-99.0 %COHB ART (test code = 3635356888) 0.3 % 0.0-1.5 %METHB ART (test code = 3486766790) 0.1 % 0.4-1.5 L VOL%O2 ART (test code = 2844928239) 11.9 % 15.0-23.0 L NA (test code = 1096553487) 134 mmol/L 135-145 L K+ (test code = 0039743314) 5.3 mmol/L 3.5-5.0 H AC CA IONZ (test code = 8654895034) 4.30 mg/dL 4.50-5.30 L GLUCOSE (test code = 3736330958) 172 mg/dL 70-110 H Lab Interpretation (test code = 28672-0) [facility]CA2+ (While Intubated) 2023-02-14 20:29:29* Test Item Value Reference Range Interpretation Comme nts PH (test code = 2) 7.45 7.35-7.45 PCO2 (test code = 4454212388) 30 See_Comment L [Automated messa ge] The system which generated this result transmitted reference range: 35 - 45 mmHg. The reference range was not used to interpret this result as normal/abnormal. PO2 (test code = 5143609529) 82 See_Comment [Automated messa ge] The system which generated this result transmitted reference range: 80 - 100 mmHg. The reference range was not used to interpret this result as normal/abnormal. HCO3 (test code = 2231064958) 20 See_Comment L [Automated messa ge] The system which generated this result transmitted reference range: 22 - 26 mEq/L. The reference range was not used to interpret this result as normal/abnormal. BE (test code = 4345554673) -3.3 See_Comment L [Automated messa ge] The system which generated this result transmitted reference range: -3.0 - 3.0 mEq/L. The reference range was not used to interpret this result as normal/abnormal. THB (test code = 8180802642) 8.8 g/dL 13.5-18.0 L %O2HB (test code = 5815083822) 95.4 % 94.0-99.0 %COHB ART (test code = 0993312355) 0.3 % 0.0-1.5 %METHB ART (test code = 1212001373) 0.1 % 0.4-1.5 L VOL%O2 ART (test code = 5203793423) 11.9 % 15.0-23.0 L NA (test code = 0267347878) 134 mmol/L 135-145 L K+ (test code = 3941978289) 5.3 mmol/L 3.5-5.0 H AC CA IONZ (test code = 5225155687) 4.30 mg/dL 4.50-5.30 L GLUCOSE (test code = 4563187738) 172 mg/dL 70-110 H Lab Interpretation (test code = 94133-0) [facility]CA2+ (While Intubated) 2023-02-14 20:29:29* Test Item Value Reference Range Interpretation Comme nts PH (test code = 2) 7.45 7.35-7.45 PCO2 (test code = 1937865272) 30 See_Comment L [Automated messa ge] The system which generated this result transmitted reference range: 35 - 45 mmHg. The reference range was not used to interpret this result as normal/abnormal. PO2 (test code = 4484156847) 82 See_Comment [Automated messa ge] The system which generated this result transmitted reference range: 80 - 100 mmHg. The reference range was not used to interpret this result as normal/abnormal. HCO3 (test code = 7638620310) 20 See_Comment L [Automated messa ge] The system which generated this result transmitted reference range: 22 - 26 mEq/L. The reference range was not used to interpret this result as normal/abnormal. BE (test code = 2989200918) -3.3 See_Comment L [Automated messa ge] The system which generated this result transmitted reference range: -3.0 - 3.0 mEq/L. The reference range was not used to interpret this result as normal/abnormal. THB (test code = 1686948032) 8.8 g/dL 13.5-18.0 L %O2HB (test code = 1488617287) 95.4 % 94.0-99.0 %COHB ART (test code = 0355775162) 0.3 % 0.0-1.5 %METHB ART (test code = 3872561589) 0.1 % 0.4-1.5 L VOL%O2 ART (test code = 5335055184) 11.9 % 15.0-23.0 L NA (test code = 2382869016) 134 mmol/L 135-145 L K+ (test code = 2887809831) 5.3 mmol/L 3.5-5.0 H AC CA IONZ (test code = 4925852714) 4.30 mg/dL 4.50-5.30 L GLUCOSE (test code = 7054004226) 172 mg/dL 70-110 H Lab Interpretation (test code = 23553-6) Abnormal [facility] WITHOUT [id number] 18:50:39* Test Item Value Reference Range Interpretation Comme nts WBC (test code = 6690-2) 17.07 See_Comment H [Automated messa ge] The system which generated this result transmitted reference range: 4.20 - 10.70 10*3/?L. The reference range was not used to interpret this result as normal/abnormal. RBC (test code = 789-8) 2.88 See_Comment L [Automated message] The system which generated this result transmitted reference range: 4.26 - 5.52 10*6/?L. The reference range was not used to interpret this result as normal/abnormal. HGB (test code = 718-7) 8.8 g/dL 12.2-16.4 L HCT (test code = 4544-3) 25.3 % 38.4-49.3 L MCH (test code = 785-6) 30.6 pg 26.1-32.7 MCV (test code = 787-2) 87.8 fL 81.7-95.6 MCHC (test code = 786-4) 34.8 g/dL 31.2-35.0 PLT (test code = 777-3) 78 See_Comment L [Automated message] The system which generated this result transmitted reference range: 150 - 328 10*3/?L. The reference range was not used to interpret this result as normal/abnormal. MPV (test code = 57389-0) 11.2 fL 9.8-13.0 RDW-CV (test code = 788-0) 14.5 % 12.1-15.4 RDW-SD (test code = 50279-2) 46.0 fL 38.5-51.6 NRBC x10^3 (test code = 2346574288) 0.02 See_Comment [Automated messa ge] The system which generated this result transmitted reference range: 10*3/?L. The reference range was not used to interpret this result as normal/abnormal. NRBC/100 WBC (test code = 9040272587) 0.1 See_Comment [Automated messa ge] The system which generated this result transmitted reference range: 0.0 - 10.0 /100 WBCs. The reference range was not used to interpret this result as normal/abnormal. IPF % (test code = 3082191219) 6.5 % 1.2-10.7 Platelet count measured by fluorescence method. Lab Interpretation (test code = 28800-4) Abnormal [facility] WITHOUT [id number] 18:50:39* Test Item Value Reference Range Interpretation Comme nts WBC (test code = 6690-2) 17.07 See_Comment H [Automated messa ge] The system which generated this result transmitted reference range: 4.20 - 10.70 10*3/?L. The reference range was not used to interpret this result as normal/abnormal. RBC (test code = 789-8) 2.88 See_Comment L [Automated message] The system which generated this result transmitted reference range: 4.26 - 5.52 10*6/?L. The reference range was not used to interpret this result as normal/abnormal. HGB (test code = 718-7) 8.8 g/dL 12.2-16.4 L HCT (test code = 4544-3) 25.3 % 38.4-49.3 L MCH (test code = 785-6) 30.6 pg 26.1-32.7 MCV (test code = 787-2) 87.8 fL 81.7-95.6 MCHC (test code = 786-4) 34.8 g/dL 31.2-35.0 PLT (test code = 777-3) 78 See_Comment L [Automated message] The system which generated this result transmitted reference range: 150 - 328 10*3/?L. The reference range was not used to interpret this result as normal/abnormal. MPV (test code = 30196-2) 11.2 fL 9.8-13.0 RDW-CV (test code = 788-0) 14.5 % 12.1-15.4 RDW-SD (test code = 65845-7) 46.0 fL 38.5-51.6 NRBC x10^3 (test code = 8608325257) 0.02 See_Comment [Automated [employer]] The system which generated this result transmitted reference range: 10*3/?L. The reference range was not used to interpret this result as normal/abnormal. NRBC/100 WBC (test code = 9955173736) 0.1 See_Comment [Automated [employer]] The system which generated this result transmitted reference range: 0.0 - 10.0 /100 WBCs. The reference range was not used to interpret this result as normal/abnormal. IPF % (test code = 2613583941) 6.5 % 1.2-10.7 Platelet count measured by fluorescence method. Lab Interpretation (test code = 70793-0) Abnormal [facility] WITHOUT [id number] 18:50:39* Test Item Value Reference Range Interpretation Comme nts WBC (test code = 6690-2) 17.07 See_Comment H [Automated [employer]] The system which generated this result transmitted reference range: 4.20 - 10.70 10*3/?L. The reference range was not used to interpret this result as normal/abnormal. RBC (test code = 789-8) 2.88 See_Comment L [Automated message] The system which generated this result transmitted reference range: 4.26 - 5.52 10*6/?L. The reference range was not used to interpret this result as normal/abnormal. HGB (test code = 718-7) 8.8 g/dL 12.2-16.4 L HCT (test code = 4544-3) 25.3 % 38.4-49.3 L MCH (test code = 785-6) 30.6 pg 26.1-32.7 MCV (test code = 787-2) 87.8 fL 81.7-95.6 MCHC (test code = 786-4) 34.8 g/dL 31.2-35.0 PLT (test code = 777-3) 78 See_Comment L [Automated message] The system which generated this result transmitted reference range: 150 - 328 10*3/?L. The reference range was not used to interpret this result as normal/abnormal. MPV (test code = 64275-7) 11.2 fL 9.8-13.0 RDW-CV (test code = 788-0) 14.5 % 12.1-15.4 RDW-SD (test code = 33959-4) 46.0 fL 38.5-51.6 NRBC x10^3 (test code = 0872059129) 0.02 See_Comment [Automated [employer]] The system which generated this result transmitted reference range: 10*3/?L. The reference range was not used to interpret this result as normal/abnormal. NRBC/100 WBC (test code = 8719574476) 0.1 See_Comment [Automated [employer]] The system which generated this result transmitted reference range: 0.0 - 10.0 /100 WBCs. The reference range was not used to interpret this result as normal/abnormal. IPF % (test code = 1902368679) 6.5 % 1.2-10.7 Platelet count measured by fluorescence method. Lab Interpretation (test code = 98773-0) Abnormal [facility] GLUCOSE (AUTOMATED)2023-02-14 18:11:55* Test Item Value Reference Range Interpretation Comme nts POCT GLU (test code = 0563688591) 130 mg/dL 70-110 H Lab Interpretation (test cod e = 11607-3) Abnormal [facility] GLUCOSE (AUTOMATED)2023-02-14 18:11:55* Test Item Value Reference Range Interpretation Comme nts POCT GLU (test code = 8299717235) 130 mg/dL 70-110 H Lab Interpretation (test cod e = 90262-8) Abnormal [facility] GLUCOSE (AUTOMATED)2023-02-14 18:11:55* Test Item Value Reference Range Interpretation Comme nts POCT GLU (test code = 0809176895) 130 mg/dL 70-110 H Lab Interpretation (test cod e = 39932-6) [facility] L[facility] Acid While intubated 2023-02-14 17:18:26* Test Item Value Reference Range Interpretation Comme nts PH (test code = 2) 7.37 7.35-7.45 PCO2 (test code = 4826830987) 34 See_Comment L [Automated messa ge] The system which generated this result transmitted reference range: 35 - 45 mmHg. The reference range was not used to interpret this result as normal/abnormal. PO2 (test code = 9974022672) 73 See_Comment L [Automated messa ge] The system which generated this result transmitted reference range: 80 - 100 mmHg. The reference range was not used to interpret this result as normal/abnormal. HCO3 (test code = 3343179712) 19 See_Comment L [Automated messa ge] The system which generated this result transmitted reference range: 22 - 26 mEq/L. The reference range was not used to interpret this result as normal/abnormal. BE (test code = 5133818548) -5.3 See_Comment L [Automated messa ge] The system which generated this result transmitted reference range: -3.0 - 3.0 mEq/L. The reference range was not used to interpret this result as normal/abnormal. THB (test code = 9972811658) 9.1 g/dL 13.5-18.0 L %O2HB (test code = 3335566323) 93.6 % 94.0-99.0 L %COHB ART (test code = 0944565488) 0.3 % 0.0-1.5 %METHB ART (test code = 7917101690) 0.5 % 0.4-1.5 VOL%O2 ART (test code = 0743979653) 12.1 % 15.0-23.0 L NA (test code = 6526234924) 135 mmol/L 135-145 K+ (test code = 2757016616) 4.5 mmol/L 3.5-5.0 AC CA IONZ (test code = 9137752186) 4.50 mg/dL 4.50-5.30 GLUCOSE (test code = 1467612487) 120 mg/dL 70-110 H LACTIC ACID (test code = 2888301963) 3.87 mmol/L 0.50-2.20 H Lab Interpretation (test code = 60793-1) [facility] Lactic Acid While intubated 2023-02-14 17:18:26* Test Item Value Reference Range Interpretation Comme nts PH (test code = 2) 7.37 7.35-7.45 PCO2 (test code = 8121524763) 34 See_Comment L [Automated messa ge] The system which generated this result transmitted reference range: 35 - 45 mmHg. The reference range was not used to interpret this result as normal/abnormal. PO2 (test code = 1862481722) 73 See_Comment L [Automated messa ge] The system which generated this result transmitted reference range: 80 - 100 mmHg. The reference range was not used to interpret this result as normal/abnormal. HCO3 (test code = 2580139417) 19 See_Comment L [Automated messa ge] The system which generated this result transmitted reference range: 22 - 26 mEq/L. The reference range was not used to interpret this result as normal/abnormal. BE (test code = 5841120010) -5.3 See_Comment L [Automated messa ge] The system which generated this result transmitted reference range: -3.0 - 3.0 mEq/L. The reference range was not used to interpret this result as normal/abnormal. THB (test code = 4439598859) 9.1 g/dL 13.5-18.0 L %O2HB (test code = 8133072074) 93.6 % 94.0-99.0 L %COHB ART (test code = 1916389427) 0.3 % 0.0-1.5 %METHB ART (test code = 6060917272) 0.5 % 0.4-1.5 VOL%O2 ART (test code = 7199675942) 12.1 % 15.0-23.0 L NA (test code = 4410523147) 135 mmol/L 135-145 K+ (test code = 6923848120) 4.5 mmol/L 3.5-5.0 AC CA IONZ (test code = 0680434913) 4.50 mg/dL 4.50-5.30 GLUCOSE (test code = 2850807328) 120 mg/dL 70-110 H LACTIC ACID (test code = 4052735500) 3.87 mmol/L 0.50-2.20 H Lab Interpretation (test code = 43104-4) [facility] Lactic Acid While intubated 2023-02-14 17:18:26* Test Item Value Reference Range Interpretation Comme nts PH (test code = 2) 7.37 7.35-7.45 PCO2 (test code = 2205410456) 34 See_Comment L [Automated messa ge] The system which generated this result transmitted reference range: 35 - 45 mmHg. The reference range was not used to interpret this result as normal/abnormal. PO2 (test code = 8063229246) 73 See_Comment L [Automated messa ge] The system which generated this result transmitted reference range: 80 - 100 mmHg. The reference range was not used to interpret this result as normal/abnormal. HCO3 (test code = 7065274338) 19 See_Comment L [Automated messa ge] The system which generated this result transmitted reference range: 22 - 26 mEq/L. The reference range was not used to interpret this result as normal/abnormal. BE (test code = 1154210598) -5.3 See_Comment L [Automated messa ge] The system which generated this result transmitted reference range: -3.0 - 3.0 mEq/L. The reference range was not used to interpret this result as normal/abnormal. THB (test code = 6590523015) 9.1 g/dL 13.5-18.0 L %O2HB (test code = 4605939869) 93.6 % 94.0-99.0 L %COHB ART (test code = 8732472376) 0.3 % 0.0-1.5 %METHB ART (test code = 9954810594) 0.5 % 0.4-1.5 VOL%O2 ART (test code = 5264162688) 12.1 % 15.0-23.0 L NA (test code = 4826532034) 135 mmol/L 135-145 K+ (test code = 3792643119) 4.5 mmol/L 3.5-5.0 AC CA IONZ (test code = 8260347380) 4.50 mg/dL 4.50-5.30 GLUCOSE (test code = 1664312482) 120 mg/dL 70-110 H LACTIC ACID (test code = 6648849755) 3.87 mmol/L 0.50-2.20 H Lab Interpretation (test code = 30059-3) Abnormal [facility] GLUCOSE (AUTOMATED)2023-02-14 16:06:27* Test Item Value Reference Range Interpretation Comme nts POCT GLU (test code = 5708498656) 155 mg/dL 70-110 H Lab Interpretation (test cod e = 66999-1) Abnormal [facility] GLUCOSE (AUTOMATED)2023-02-14 16:06:27* Test Item Value Reference Range Interpretation Comme nts POCT GLU (test code = 3113473215) 155 mg/dL 70-110 H Lab Interpretation (test cod e = 50074-1) Abnormal [facility] GLUCOSE (AUTOMATED)2023-02-14 16:06:27* Test Item Value Reference Range Interpretation Comme nts POCT GLU (test code = 9781173206) 155 mg/dL 70-110 H Lab Interpretation (test cod e = 39713-9) Abnormal [facility] GLUCOSE (AUTOMATED)2023-02-14 15:15:33* Test Item Value Reference Range Interpretation Comme nts POCT GLU (test code = 8495056748) 170 mg/dL 70-110 H Lab Interpretation (test cod e = 85887-8) Abnormal [facility] GLUCOSE (AUTOMATED)2023-02-14 15:15:33* Test Item Value Reference Range Interpretation Comme nts POCT GLU (test code = 5627190378) 170 mg/dL 70-110 H Lab Interpretation (test cod e = 68393-9) Abnormal [facility] GLUCOSE (AUTOMATED)2023-02-14 15:15:33* Test Item Value Reference Range Interpretation Comme nts POCT GLU (test code = 6232191104) 170 mg/dL 70-110 H Lab Interpretation (test cod e = 50307-5) [facility] ([facility]), 1 Units 2023-02-14 15:11:20* Test Item Value Reference Range Interpretation Comme nts Cross Match Result (test code = 4409) Compatible ISBT Blood Type Code (test code = 622099) 5100 Unit Blood Type (test code = 4410) O Pos Unit Number (test code = 4411) [id number] Blood Expiration Date & Time (test code = 078787) 586438699831 Status Information (test code = 4412) Issued Product Identification (test code = 4413) Red Blood Cells Product Code (test code = 4414) [id number] Performed at [facility] Blood [place] [id number] Free: [phone] No. [id number] [facility] (in units), 1 Units 2023-02-14 15:11:20* Test Item Value Reference Range Interpretation Comme nts Cross Match Result (test code = 4409) Compatible ISBT Blood Type Code (test code = 039800) 5100 Unit Blood Type (test code = 4410) O Pos Unit Number (test code = 4411) [id number] Blood Expiration Date & Time (test code = 789735) 761531546753 Status Information (test code = 4412) Issued Product Identification (test code = 4413) Red Blood Cells Product Code (test code = 4414) [id number] Performed at [facility] Blood [address] [address]Wiwg Free: [phone] No. [id number] [facility] RBC (in units), 1 Units 2023-02-14 15:11:20* Test Item Value Reference Range Interpretation Comme nts Cross Match Result (test code = 4409) Compatible ISBT Blood Type Code (test code = 298716) 5100 Unit Blood Type (test code = 4410) O Pos Unit Number (test code = 4411) [id number] Blood Expiration Date & Time (test code = 732254) 131182952156 Status Information (test code = 4412) Issued Product Identification (test code = 4413) Red Blood Cells Product Code (test code = 4414) [id number] Performed at [facility] Blood [address] [address]Rqpn Free: [phone] No. [id number] [facility] RBC (in units), 1 Units 2023-02-14 15:11:20* Test Item Value Reference Range Interpretation Comme nts Cross Match Result (test code = 4409) Compatible ISBT Blood Type Code (test code = 413777) 5100 Unit Blood Type (test code = 4410) O Pos Unit Number (test code = 4411) [id number] Blood Expiration Date & Time (test code = 306096) 074554751807 Status Information (test code = 4412) Issued Product Identification (test code = 4413) Red Blood Cells Product Code (test code = 4414) [id number] Performed at [facility] Blood [address] Free: [phone] No. [id number] [facility] (in units), 1 Units 2023-02-14 15:11:20* Test Item Value Reference Range Interpretation Comme nts Cross Match Result (test code = 4409) Compatible ISBT Blood Type Code (test code = 370633) 5100 Unit Blood Type (test code = 4410) O Pos Unit Number (test code = 4411) [id number] Blood Expiration Date & Time (test code = 446588) 024879917299 Status Information (test code = 4412) Issued Product Identification (test code = 4413) Red Blood Cells Product Code (test code = 4414) [id number] Performed at [facility] Blood [place] [id number] Free: [phone] No. [id number] [facility] Packed RBC (in units), 1 Units 2023-02-14 15:11:20* Test Item Value Reference Range Interpretation Comme nts Cross Match Result (test code = 4409) Compatible ISBT Blood Type Code (test code = 796761) 5100 Unit Blood Type (test code = 4410) O Pos Unit Number (test code = 4411) [id number] Blood Expiration Date & Time (test code = 398686) 904254601437 Status Information (test code = 4412) Issued Product Identification (test code = 4413) Red Blood Cells Product Code (test code = 4414) [id number] Performed at [facility] - [facility] Blood [address] [address]Mwyp Free: [phone] No. [id number] [facility] + Lactic [id number] 14:25:20* Test Item Value Reference Range Interpretation Comme nts PH (test code = 2) 7.41 7.35-7.45 PCO2 (test code = 3335444890) 32 See_Comment L [Automated messa ge] The system which generated this result transmitted reference range: 35 - 45 mmHg. The reference range was not used to interpret this result as normal/abnormal. PO2 (test code = 3649042656) 177 See_Comment H [Automated messa ge] The system which generated this result transmitted reference range: 80 - 100 mmHg. The reference range was not used to interpret this result as normal/abnormal. HCO3 (test code = 4139499250) 20 See_Comment L [Automated messa ge] The system which generated this result transmitted reference range: 22 - 26 mEq/L. The reference range was not used to interpret this result as normal/abnormal. BE (test code = 2719792115) -4.6 See_Comment L [Automated messa ge] The system which generated this result transmitted reference range: -3.0 - 3.0 mEq/L. The reference range was not used to interpret this result as normal/abnormal. THB (test code = 5260701486) 6.1 g/dL 13.5-18.0 LL %O2HB (test code = 1075298963) 97.5 % 94.0-99.0 %COHB ART (test code = 0546168223) 0.4 % 0.0-1.5 %METHB ART (test code = 6996846258) 0.6 % 0.4-1.5 VOL%O2 ART (test code = 7700912622) 8.8 % 15.0-23.0 L NA (test code = 3120475951) 135 mmol/L 135-145 K+ (test code = 5785135865) 4.6 mmol/L 3.5-5.0 AC CA IONZ (test code = 4249492449) 4.20 mg/dL 4.50-5.30 L GLUCOSE (test code = 6185711955) 166 mg/dL 70-110 H LACTIC ACID (test code = 8716887749) 4.62 mmol/L 0.50-2.20 H Lab Interpretation (test code = 42840-5) [facility] + Lactic [id number] 14:25:20* Test Item Value Reference Range Interpretation Comme nts PH (test code = 2) 7.41 7.35-7.45 PCO2 (test code = 0523084876) 32 See_Comment L [Automated messa ge] The system which generated this result transmitted reference range: 35 - 45 mmHg. The reference range was not used to interpret this result as normal/abnormal. PO2 (test code = 9915042835) 177 See_Comment H [Automated messa ge] The system which generated this result transmitted reference range: 80 - 100 mmHg. The reference range was not used to interpret this result as normal/abnormal. HCO3 (test code = 7208905433) 20 See_Comment L [Automated messa ge] The system which generated this result transmitted reference range: 22 - 26 mEq/L. The reference range was not used to interpret this result as normal/abnormal. BE (test code = 4496506418) -4.6 See_Comment L [Automated messa ge] The system which generated this result transmitted reference range: -3.0 - 3.0 mEq/L. The reference range was not used to interpret this result as normal/abnormal. THB (test code = 2209036754) 6.1 g/dL 13.5-18.0 LL %O2HB (test code = 0349325287) 97.5 % 94.0-99.0 %COHB ART (test code = 2127386364) 0.4 % 0.0-1.5 %METHB ART (test code = 3452578062) 0.6 % 0.4-1.5 VOL%O2 ART (test code = 2873461187) 8.8 % 15.0-23.0 L NA (test code = 2898114701) 135 mmol/L 135-145 K+ (test code = 7007757692) 4.6 mmol/L 3.5-5.0 AC CA IONZ (test code = 2938933030) 4.20 mg/dL 4.50-5.30 L GLUCOSE (test code = 4311782857) 166 mg/dL 70-110 H LACTIC ACID (test code = 6621143448) 4.62 mmol/L 0.50-2.20 H Lab Interpretation (test code = 09719-0) [facility] + Lactic Bfac4640-75-38 14:25:20* Test Item Value Reference Range Interpretation Comme nts PH (test code = 2) 7.41 7.35-7.45 PCO2 (test code = 0203618920) 32 See_Comment L [Automated messa ge] The system which generated this result transmitted reference range: 35 - 45 mmHg. The reference range was not used to interpret this result as normal/abnormal. PO2 (test code = 3706071197) 177 See_Comment H [Automated messa ge] The system which generated this result transmitted reference range: 80 - 100 mmHg. The reference range was not used to interpret this result as normal/abnormal. HCO3 (test code = 6014838596) 20 See_Comment L [Automated messa ge] The system which generated this result transmitted reference range: 22 - 26 mEq/L. The reference range was not used to interpret this result as normal/abnormal. BE (test code = 0875947999) -4.6 See_Comment L [Automated messa ge] The system which generated this result transmitted reference range: -3.0 - 3.0 mEq/L. The reference range was not used to interpret this result as normal/abnormal. THB (test code = 6584515301) 6.1 g/dL 13.5-18.0 LL %O2HB (test code = 1301539556) 97.5 % 94.0-99.0 %COHB ART (test code = 9530860109) 0.4 % 0.0-1.5 %METHB ART (test code = 0148642489) 0.6 % 0.4-1.5 VOL%O2 ART (test code = 5113829370) 8.8 % 15.0-23.0 L NA (test code = 9582138369) 135 mmol/L 135-145 K+ (test code = 9175435870) 4.6 mmol/L 3.5-5.0 AC CA IONZ (test code = 6663847531) 4.20 mg/dL 4.50-5.30 L GLUCOSE (test code = 0015719229) 166 mg/dL 70-110 H LACTIC ACID (test code = 8466947463) 4.62 mmol/L 0.50-2.20 H Lab Interpretation (test code = 61628-7) Abnormal [facility] GLUCOSE (AUTOMATED)2023-02-14 14:24:29* Test Item Value Reference Range Interpretation Comme [facility] POCT GLU (test code = 9087131054) 197 mg/dL 70-110 H Lab Interpretation (test cod e = 95283-2) Abnormal [facility] GLUCOSE (AUTOMATED)2023-02-14 14:24:29* Test Item Value Reference Range Interpretation Comme [facility] POCT GLU (test code = 2657519093) 197 mg/dL 70-110 H Lab Interpretation (test cod e = 40265-4) Abnormal [facility] GLUCOSE (AUTOMATED)2023-02-14 14:24:29* Test Item Value Reference Range Interpretation Comme [facility] POCT GLU (test code = 4138132735) 197 mg/dL 70-110 H Lab Interpretation (test cod e = 28482-8) [facility]COOX+NA+K+GLU+CA2+ (While Intubated) 2023-02-14 12:59:59* Test Item Value Reference Range Interpretation Comme nts PH (test code = 2) 7.35 7.35-7.45 PCO2 (test code = 4935337194) 36 See_Comment [Automated messa ge] The system which generated this result transmitted reference range: 35 - 45 mmHg. The reference range was not used to interpret this result as normal/abnormal. PO2 (test code = 5229390197) 101 See_Comment H [Automated messa ge] The system which generated this result transmitted reference range: 80 - 100 mmHg. The reference range was not used to interpret this result as normal/abnormal. HCO3 (test code = 5140727253) 19 See_Comment L [Automated messa ge] The system which generated this result transmitted reference range: 22 - 26 mEq/L. The reference range was not used to interpret this result as normal/abnormal. BE (test code = 2889962442) -5.7 See_Comment L [Automated messa ge] The system which generated this result transmitted reference range: -3.0 - 3.0 mEq/L. The reference range was not used to interpret this result as normal/abnormal. THB (test code = 8018565879) 7.4 g/dL 13.5-18.0 LL %O2HB (test code = 5692503211) 95.8 % 94.0-99.0 %COHB ART (test code = 7415592286) 1.2 % 0.0-1.5 %METHB ART (test code = 4610385978) 0.3 % 0.4-1.5 L VOL%O2 ART (test code = 7513202156) 10.2 % 15.0-23.0 L NA (test code = 4826517685) 134 mmol/L 135-145 L K+ (test code = 1306868286) 4.6 mmol/L 3.5-5.0 AC CA IONZ (test code = 2998217345) 4.30 mg/dL 4.50-5.30 L GLUCOSE (test code = 1779941796) 214 mg/dL 70-110 H Lab Interpretation (test code = 62655-5) [facility]NA+K+GLU+CA2+ (While Intubated) 2023-02-14 12:59:59* Test Item Value Reference Range Interpretation Comme nts PH (test code = 2) 7.35 7.35-7.45 PCO2 (test code = 4906598429) 36 See_Comment [Automated messa ge] The system which generated this result transmitted reference range: 35 - 45 mmHg. The reference range was not used to interpret this result as normal/abnormal. PO2 (test code = 3431560441) 101 See_Comment H [Automated messa ge] The system which generated this result transmitted reference range: 80 - 100 mmHg. The reference range was not used to interpret this result as normal/abnormal. HCO3 (test code = 6022117770) 19 See_Comment L [Automated messa ge] The system which generated this result transmitted reference range: 22 - 26 mEq/L. The reference range was not used to interpret this result as normal/abnormal. BE (test code = 1320114752) -5.7 See_Comment L [Automated messa ge] The system which generated this result transmitted reference range: -3.0 - 3.0 mEq/L. The reference range was not used to interpret this result as normal/abnormal. THB (test code = 3958408163) 7.4 g/dL 13.5-18.0 LL %O2HB (test code = 8358740976) 95.8 % 94.0-99.0 %COHB ART (test code = 5458386820) 1.2 % 0.0-1.5 %METHB ART (test code = 2050257351) 0.3 % 0.4-1.5 L VOL%O2 ART (test code = 0659018043) 10.2 % 15.0-23.0 L NA (test code = 6101966923) 134 mmol/L 135-145 L K+ (test code = 2277931593) 4.6 mmol/L 3.5-5.0 AC CA IONZ (test code = 6149676449) 4.30 mg/dL 4.50-5.30 L GLUCOSE (test code = 4012868521) 214 mg/dL 70-110 H Lab Interpretation (test code = 53199-6) [facility]NA+K+GLU+CA2+ (While Intubated) 2023-02-14 12:59:59* Test Item Value Reference Range Interpretation Comme nts PH (test code = 2) 7.35 7.35-7.45 PCO2 (test code = 5791626718) 36 See_Comment [Automated messa ge] The system which generated this result transmitted reference range: 35 - 45 mmHg. The reference range was not used to interpret this result as normal/abnormal. PO2 (test code = 2748474462) 101 See_Comment H [Automated messa ge] The system which generated this result transmitted reference range: 80 - 100 mmHg. The reference range was not used to interpret this result as normal/abnormal. HCO3 (test code = 3980472477) 19 See_Comment L [Automated messa ge] The system which generated this result transmitted reference range: 22 - 26 mEq/L. The reference range was not used to interpret this result as normal/abnormal. BE (test code = 1969363651) -5.7 See_Comment L [Automated messa ge] The system which generated this result transmitted reference range: -3.0 - 3.0 mEq/L. The reference range was not used to interpret this result as normal/abnormal. THB (test code = 9923074890) 7.4 g/dL 13.5-18.0 LL %O2HB (test code = 7910438715) 95.8 % 94.0-99.0 %COHB ART (test code = 0491798714) 1.2 % 0.0-1.5 %METHB ART (test code = 0731472959) 0.3 % 0.4-1.5 L VOL%O2 ART (test code = 6356206904) 10.2 % 15.0-23.0 L NA (test code = 7192628151) 134 mmol/L 135-145 L K+ (test code = 8344557751) 4.6 mmol/L 3.5-5.0 AC CA IONZ (test code = 5174725311) 4.30 mg/dL 4.50-5.30 L GLUCOSE (test code = 5413637926) 214 mg/dL 70-110 H Lab Interpretation (test code = 08889-0) Abnormal [facility] GLUCOSE (AUTOMATED)2023-02-14 12:56:02* Test Item Value Reference Range Interpretation Comme nts POCT GLU (test code = 4475504335) 229 mg/dL 70-110 H Lab Interpretation (test cod e = 17791-5) Abnormal [facility] GLUCOSE (AUTOMATED)2023-02-14 12:56:02* Test Item Value Reference Range Interpretation Comme nts POCT GLU (test code = 4431367260) 229 mg/dL 70-110 H Lab Interpretation (test cod e = 40165-8) Abnormal [facility] GLUCOSE (AUTOMATED)2023-02-14 12:56:02* Test Item Value Reference Range Interpretation Comme nts POCT GLU (test code = 5638985643) 229 mg/dL 70-110 H Lab Interpretation (test cod e = 04983-7) Abnormal [facility] GLUCOSE (AUTOMATED)2023-02-14 11:06:23* Test Item Value Reference Range Interpretation Comme nts POCT GLU (test code = 9963461269) 254 mg/dL 70-110 H Lab Interpretation (test cod e = 89814-8) Abnormal [facility] GLUCOSE (AUTOMATED)2023-02-14 11:06:23* Test Item Value Reference Range Interpretation Comme nts POCT GLU (test code = 6582118928) 254 mg/dL 70-110 H Lab Interpretation (test cod e = 74208-4) Abnormal [facility] GLUCOSE (AUTOMATED)2023-02-14 11:06:23* Test Item Value Reference Range Interpretation Comme nts POCT GLU (test code = 1379156881) 254 mg/dL 70-110 H Lab Interpretation (test cod e = 95674-7) [facility] L[facility] [id number] 10:15:45* Test Item Value Reference Range Interpretation Comme nts PH (test code = 2) 7.32 7.35-7.45 L PCO2 (test code = 1421603958) 32 See_Comment L [Automated messa ge] The system which generated this result transmitted reference range: 35 - 45 mmHg. The reference range was not used to interpret this result as normal/abnormal. PO2 (test code = 5986033812) 59 See_Comment L [Automated messa ge] The system which generated this result transmitted reference range: 80 - 100 mmHg. The reference range was not used to interpret this result as normal/abnormal. HCO3 (test code = 4207438135) 16 See_Comment L [Automated messa ge] The system which generated this result transmitted reference range: 22 - 26 mEq/L. The reference range was not used to interpret this result as normal/abnormal. BE (test code = 8266988562) -8.7 See_Comment L [Automated messa ge] The system which generated this result transmitted reference range: -3.0 - 3.0 mEq/L. The reference range was not used to interpret this result as normal/abnormal. THB (test code = 4796944423) 7.8 g/dL 13.5-18.0 LL %O2HB (test code = 0100037213) 88.6 % 94.0-99.0 L %COHB ART (test code = 8936159987) 0.9 % 0.0-1.5 %METHB ART (test code = 9768744207) 0.5 % 0.4-1.5 VOL%O2 ART (test code = 7819397390) 9.8 % 15.0-23.0 L NA (test code = 0210124724) 133 mmol/L 135-145 L K+ (test code = 2624161600) 4.5 mmol/L 3.5-5.0 AC CA IONZ (test code = 9066717810) 4.50 mg/dL 4.50-5.30 GLUCOSE (test code = 7914736343) 239 mg/dL 70-110 H LACTIC ACID (test code = 9628433729) 5.93 mmol/L 0.50-2.20 H Lab Interpretation (test code = 25141-6) [facility] Lactic Chzh4902-18-66 10:15:45* Test Item Value Reference Range Interpretation Comme nts PH (test code = 2) 7.32 7.35-7.45 L PCO2 (test code = 3051272849) 32 See_Comment L [Automated messa ge] The system which generated this result transmitted reference range: 35 - 45 mmHg. The reference range was not used to interpret this result as normal/abnormal. PO2 (test code = 1163066268) 59 See_Comment L [Automated messa ge] The system which generated this result transmitted reference range: 80 - 100 mmHg. The reference range was not used to interpret this result as normal/abnormal. HCO3 (test code = 8225692366) 16 See_Comment L [Automated messa ge] The system which generated this result transmitted reference range: 22 - 26 mEq/L. The reference range was not used to interpret this result as normal/abnormal. BE (test code = 2005655407) -8.7 See_Comment L [Automated messa ge] The system which generated this result transmitted reference range: -3.0 - 3.0 mEq/L. The reference range was not used to interpret this result as normal/abnormal. THB (test code = 7168975694) 7.8 g/dL 13.5-18.0 LL %O2HB (test code = 1705214432) 88.6 % 94.0-99.0 L %COHB ART (test code = 1906147263) 0.9 % 0.0-1.5 %METHB ART (test code = 2347018225) 0.5 % 0.4-1.5 VOL%O2 ART (test code = 2904871697) 9.8 % 15.0-23.0 L NA (test code = 4107688811) 133 mmol/L 135-145 L K+ (test code = 4539586641) 4.5 mmol/L 3.5-5.0 AC CA IONZ (test code = 1585452022) 4.50 mg/dL 4.50-5.30 GLUCOSE (test code = 0594226469) 239 mg/dL 70-110 H LACTIC ACID (test code = 4063661416) 5.93 mmol/L 0.50-2.20 H Lab Interpretation (test code = 18046-3) [facility] Lactic Pkbf9588-99-55 10:15:45* Test Item Value Reference Range Interpretation Comme nts PH (test code = 2) 7.32 7.35-7.45 L PCO2 (test code = 7851277766) 32 See_Comment L [Automated messa ge] The system which generated this result transmitted reference range: 35 - 45 mmHg. The reference range was not used to interpret this result as normal/abnormal. PO2 (test code = 4811629866) 59 See_Comment L [Automated messa ge] The system which generated this result transmitted reference range: 80 - 100 mmHg. The reference range was not used to interpret this result as normal/abnormal. HCO3 (test code = 0607793834) 16 See_Comment L [Automated messa ge] The system which generated this result transmitted reference range: 22 - 26 mEq/L. The reference range was not used to interpret this result as normal/abnormal. BE (test code = 7490751480) -8.7 See_Comment L [Automated messa ge] The system which generated this result transmitted reference range: -3.0 - 3.0 mEq/L. The reference range was not used to interpret this result as normal/abnormal. THB (test code = 4729970528) 7.8 g/dL 13.5-18.0 LL %O2HB (test code = 5694562373) 88.6 % 94.0-99.0 L %COHB ART (test code = 3882367858) 0.9 % 0.0-1.5 %METHB ART (test code = 4309408985) 0.5 % 0.4-1.5 VOL%O2 ART (test code = 2795078381) 9.8 % 15.0-23.0 L NA (test code = 9529338331) 133 mmol/L 135-145 L K+ (test code = 1484265251) 4.5 mmol/L 3.5-5.0 AC CA IONZ (test code = 5418245782) 4.50 mg/dL 4.50-5.30 GLUCOSE (test code = 4280747641) 239 mg/dL 70-110 H LACTIC ACID (test code = 6563311220) 5.93 mmol/L 0.50-2.20 H Lab Interpretation (test code = 88115-2) Abnormal [facility] GLUCOSE (AUTOMATED)2023-02-14 10:09:50* Test Item Value Reference Range Interpretation Comme nts POCT GLU (test code = 2715807272) 266 mg/dL 70-110 H Lab Interpretation (test cod e = 70218-3) Abnormal [facility] GLUCOSE (AUTOMATED)2023-02-14 10:09:50* Test Item Value Reference Range Interpretation Comme nts POCT GLU (test code = 9768128238) 266 mg/dL 70-110 H Lab Interpretation (test cod e = 55201-9) Abnormal [facility] GLUCOSE (AUTOMATED)2023-02-14 10:09:50* Test Item Value Reference Range Interpretation Comme nts POCT GLU (test code = 2673754521) 266 mg/dL 70-110 H Lab Interpretation (test cod e = 89938-4) Abnormal [facility] GLUCOSE (AUTOMATED)2023-02-14 08:58:10* Test Item Value Reference Range Interpretation Comme nts POCT GLU (test code = 6704202076) 254 mg/dL 70-110 H Lab Interpretation (test cod e = 86889-3) Abnormal [facility] GLUCOSE (AUTOMATED)2023-02-14 08:58:10* Test Item Value Reference Range Interpretation Comme nts POCT GLU (test code = 1554713214) 254 mg/dL 70-110 H Lab Interpretation (test cod e = 21852-9) Abnormal [facility] GLUCOSE (AUTOMATED)2023-02-14 08:58:10* Test Item Value Reference Range Interpretation Comme nts POCT GLU (test code = 8530872302) 254 mg/dL 70-110 H Lab Interpretation (test cod e = 31310-1) Abnormal [facility] GLUCOSE (AUTOMATED)2023-02-14 08:46:56* Test Item Value Reference Range Interpretation Comme nts POCT GLU (test code = 1959136006) 261 mg/dL 70-110 H Lab Interpretation (test cod e = 20677-7) Abnormal [facility] GLUCOSE (AUTOMATED)2023-02-14 08:46:56* Test Item Value Reference Range Interpretation Comme nts POCT GLU (test code = 5812849596) 261 mg/dL 70-110 H Lab Interpretation (test cod e = 50480-3) Abnormal [facility] GLUCOSE (AUTOMATED)2023-02-14 08:46:56* Test Item Value Reference Range Interpretation Comme nts POCT GLU (test code = 7976664120) 261 mg/dL 70-110 H Lab Interpretation (test cod e = 20445-8) Abnormal [facility] Platelets (in units): 1 Units~Indication: 4) Evidence of platelet dysfunction and no response to DDAVP or cryoprecipitate with active hemorrhage or at risk for zimzwjaa3684-90-71 08:12:26* Test Item Value Reference Range Interpretation Comme nts Unit Blood Type (test code = 4410) B Pos ISBT Blood Type Code (test code = 174943 7365 Unit Number (test code = 4411) [id number] Blood Expiration Date & Time (test code = 655429) 734469509603 Status Information (test code = 4412) Issued Product Identification (test code = 4413) Platelets Product Code (test code = 4414) [id number] Performed at [facility] B Laboratory Services - [facility] Blood [address] [place] [address]Fjbr Free: [phone] No. [id number] [facility] Platelets (in units): 1 Units~Indication: 4) Evidence of platelet dysfunction and no response to DDAVP or cryoprecipitate with active hemorrhage or at risk for iyuewuhp3964-67-30 08:12:26* Test Item Value Reference Range Interpretation Comme [facility] Unit Blood Type (test code = 4410) B Pos ISBT Blood Type Code (test code = 735536) 7300 Unit Number (test code = 4411) [id number] Blood Expiration Date & Time (test code = 680435) 663356873378 Status Information (test code = 4412) Issued Product Identification (test code = 4413) Platelets Product Code (test code = 4414) [id number] Performed at [facility] Blood [address] Free: [phone] No. [id number] [facility] Platelets (in units): 1 Units~Indication: 4) Evidence of platelet dysfunction and no response to DDAVP or cryoprecipitate with active hemorrhage or at risk for wkkuzogy4072-85-82 08:12:26* Test Item Value Reference Range Interpretation Comme [facility] Unit Blood Type (test code = 4410) B Pos ISBT Blood Type Code (test code = 083422) 7300 Unit Number (test code = 4411) [id number] Blood Expiration Date & Time (test code = 015937) 097639432385 Status Information (test code = 4412) Issued Product Identification (test code = 4413) Platelets Product Code (test code = 4414) [id number] Performed at [facility] Blood [address] Free: [phone] No. [id number] [facility] Platelets (in units): 1 Units~Indication: 4) Evidence of platelet dysfunction and no response to DDAVP or cryoprecipitate with active hemorrhage or at risk for lgskfqsw7284-36-44 08:12:26* Test Item Value Reference Range Interpretation Comme [facility] Unit Blood Type (test code = 4410) B Pos ISBT Blood Type Code (test code = 626951) 7300 Unit Number (test code = 4411) [id number] Blood Expiration Date & Time (test code = 249634) 792156991109 Status Information (test code = 4412) Issued Product Identification (test code = 4413) Platelets Product Code (test code = 4414) F0153Y14 Performed at [facility] Blood [place] [id number] Free: [phone] No. [id number] [facility] Plate[facility] (in units): 1 Units~Indication: 4) Evidence of platelet dysfunction and no response to DDAVP or cryoprecipitate with active hemorrhage or at risk for hjpmnzap3794-61-47 08:12:26* Test Item Value Reference Range Interpretation Comme nts Unit Blood Type (test code = 4410) B Pos ISBT Blood Type Code (test code = 437236) 7300 Unit Number (test code = 4411) [id number] Blood Expiration Date & Time (test code = 899980) 459573361642 Status Information (test code = 4412) Issued Product Identification (test code = 4413) Platelets Product Code (test code = 4414) [id number] Performed at [facility] Services [facility] Blood [address] [address]Aqgy Free: [phone] No. [id number] [facility] + Lactic Vsax5368-20-73 07:48:08* Test Item Value Reference Range Interpretation Comme nts PH (test code = 2) 7.37 7.35-7.45 PCO2 (test code = 7130195921) 31 See_Comment L [Automated messa ge] The system which generated this result transmitted reference range: 35 - 45 mmHg. The reference range was not used to interpret this result as normal/abnormal. PO2 (test code = 5454987993) 83 See_Comment [Automated messa ge] The system which generated this result transmitted reference range: 80 - 100 mmHg. The reference range was not used to interpret this result as normal/abnormal. HCO3 (test code = 3641453437) 18 See_Comment L [Automated messa ge] The system which generated this result transmitted reference range: 22 - 26 mEq/L. The reference range was not used to interpret this result as normal/abnormal. BE (test code = 2719381273) -7.0 See_Comment L [Automated messa ge] The system which generated this result transmitted reference range: -3.0 - 3.0 mEq/L. The reference range was not used to interpret this result as normal/abnormal. THB (test code = 0373862672) 8.3 g/dL 13.5-18.0 LL %O2HB (test code = 6103369873) 94.8 % 94.0-99.0 %COHB ART (test code = 1645011950) 1.2 % 0.0-1.5 %METHB ART (test code = 6787866133) 0.3 % 0.4-1.5 L VOL%O2 ART (test code = 7343303899) 11.2 % 15.0-23.0 L NA (test code = 4357237926) 133 mmol/L 135-145 L K+ (test code = 0800819713) 5.1 mmol/L 3.5-5.0 H AC CA IONZ (test code = 4472786553) 4.30 mg/dL 4.50-5.30 L GLUCOSE (test code = 4322335180) 241 mg/dL 70-110 H LACTIC ACID (test code = 4145578412) 5.73 mmol/L 0.50-2.20 H Lab Interpretation (test code = 32103-7) [facility] + Lactic Pfqz5194-93-58 07:48:08* Test Item Value Reference Range Interpretation Comme nts PH (test code = 2) 7.37 7.35-7.45 PCO2 (test code = 6859447071) 31 See_Comment L [Automated messa ge] The system which generated this result transmitted reference range: 35 - 45 mmHg. The reference range was not used to interpret this result as normal/abnormal. PO2 (test code = 9825786939) 83 See_Comment [Automated messa ge] The system which generated this result transmitted reference range: 80 - 100 mmHg. The reference range was not used to interpret this result as normal/abnormal. HCO3 (test code = 6205971488) 18 See_Comment L [Automated messa ge] The system which generated this result transmitted reference range: 22 - 26 mEq/L. The reference range was not used to interpret this result as normal/abnormal. BE (test code = 8305472792) -7.0 See_Comment L [Automated messa ge] The system which generated this result transmitted reference range: -3.0 - 3.0 mEq/L. The reference range was not used to interpret this result as normal/abnormal. THB (test code = 5047284735) 8.3 g/dL 13.5-18.0 LL %O2HB (test code = 8690916854) 94.8 % 94.0-99.0 %COHB ART (test code = 5839792737) 1.2 % 0.0-1.5 %METHB ART (test code = 0812395112) 0.3 % 0.4-1.5 L VOL%O2 ART (test code = 7633370177) 11.2 % 15.0-23.0 L NA (test code = 5236786863) 133 mmol/L 135-145 L K+ (test code = 8081479500) 5.1 mmol/L 3.5-5.0 H AC CA IONZ (test code = 8162890217) 4.30 mg/dL 4.50-5.30 L GLUCOSE (test code = 6510291320) 241 mg/dL 70-110 H LACTIC ACID (test code = 2158038093) 5.73 mmol/L 0.50-2.20 H Lab Interpretation (test code = 77847-9) [facility] + Lactic Klew4920-04-34 07:48:08* Test Item Value Reference Range Interpretation Comme nts PH (test code = 2) 7.37 7.35-7.45 PCO2 (test code = 3033954009) 31 See_Comment L [Automated messa ge] The system which generated this result transmitted reference range: 35 - 45 mmHg. The reference range was not used to interpret this result as normal/abnormal. PO2 (test code = 3800487803) 83 See_Comment [Automated messa ge] The system which generated this result transmitted reference range: 80 - 100 mmHg. The reference range was not used to interpret this result as normal/abnormal. HCO3 (test code = 1482103339) 18 See_Comment L [Automated messa ge] The system which generated this result transmitted reference range: 22 - 26 mEq/L. The reference range was not used to interpret this result as normal/abnormal. BE (test code = 3496592014) -7.0 See_Comment L [Automated messa ge] The system which generated this result transmitted reference range: -3.0 - 3.0 mEq/L. The reference range was not used to interpret this result as normal/abnormal. THB (test code = 6435972202) 8.3 g/dL 13.5-18.0 LL %O2HB (test code = 2830872817) 94.8 % 94.0-99.0 %COHB ART (test code = 1748118755) 1.2 % 0.0-1.5 %METHB ART (test code = 5796391038) 0.3 % 0.4-1.5 L VOL%O2 ART (test code = 0085333051) 11.2 % 15.0-23.0 L NA (test code = 8139939263) 133 mmol/L 135-145 L K+ (test code = 3701481946) 5.1 mmol/L 3.5-5.0 H AC CA IONZ (test code = 4318491850) 4.30 mg/dL 4.50-5.30 L GLUCOSE (test code = 9709922237) 241 mg/dL 70-110 H LACTIC ACID (test code = 3144713689) 5.73 mmol/L 0.50-2.20 H Lab Interpretation (test code = 29572-6) Abnormal [facility] GLUCOSE (AUTOMATED)2023-02-14 07:39:13* Test Item Value Reference Range Interpretation Comme nts POCT GLU (test code = 9097523297) 260 mg/dL 70-110 H Lab Interpretation (test cod e = 48910-7) Abnormal [facility] GLUCOSE (AUTOMATED)2023-02-14 07:39:13* Test Item Value Reference Range Interpretation Comme nts POCT GLU (test code = 2990662288) 260 mg/dL 70-110 H Lab Interpretation (test cod e = 89098-1) Abnormal [facility] GLUCOSE (AUTOMATED)2023-02-14 07:39:13* Test Item Value Reference Range Interpretation Comme nts POCT GLU (test code = 5739735893) 260 mg/dL 70-110 H Lab Interpretation (test cod e = 08160-3) Abnormal [facility] GLUCOSE (AUTOMATED)2023-02-14 06:41:22* Test Item Value Reference Range Interpretation Comme nts POCT GLU (test code = 8643669310) 273 mg/dL 70-110 H Lab Interpretation (test cod e = 00317-6) Abnormal [facility] GLUCOSE (AUTOMATED)2023-02-14 06:41:22* Test Item Value Reference Range Interpretation Comme nts POCT GLU (test code = 6264254681) 273 mg/dL 70-110 H Lab Interpretation (test cod e = 12159-0) Abnormal [facility] GLUCOSE (AUTOMATED)2023-02-14 06:41:22* Test Item Value Reference Range Interpretation Comme nts POCT GLU (test code = 6150733434) 273 mg/dL 70-110 H Lab Interpretation (test cod e = 44299-3) Abnormal [facility] Packed RBC (in units), 1 Units 2023-02-14 06:41:07* Test Item Value Reference Range Interpretation Comme nts Cross Match Result (test code = 4409) Compatible ISBT Blood Type Code (test code = 077703) 5100 Unit Blood Type (test code = 4410) O Pos Unit Number (test code = 4411) [id number] Blood Expiration Date & Time (test code = 448298) 826447700732 Status Information (test code = 4412) Issued Product Identification (test code = 4413) Red Blood Cells Product Code (test code = 4414) [id number] Performed at [facility] B Laboratory Services [facility] Blood [address] [place] [address]Hecb Free: [phone] No. [id number] [facility] Packed RBC (in units), 1 Units 2023-02-14 06:41:07* Test Item Value Reference Range Interpretation Comme nts Cross Match Result (test code = 4409) Compatible ISBT Blood Type Code (test code = 239553) 5100 Unit Blood Type (test code = 4410) O Pos Unit Number (test code = 4411) [id number] Blood Expiration Date & Time (test code = 625114) 437137806247 Status Information (test code = 4412) Issued Product Identification (test code = 4413) Red Blood Cells Product Code (test code = 4414) [id number] Performed at [facility] Blood [address] Free: [phone] No. [id number] [facility] Packed RBC (in units), 1 Units 2023-02-14 06:41:07* Test Item Value Reference Range Interpretation Comme nts Cross Match Result (test code = 4409) Compatible ISBT Blood Type Code (test code = 700411) 5100 Unit Blood Type (test code = 4410) O Pos Unit Number (test code = 4411) [id number] Blood Expiration Date & Time (test code = 690321) 896633672271 Status Information (test code = 4412) Issued Product Identification (test code = 4413) Red Blood Cells Product Code (test code = 4414) [id number] Performed at [facility] Blood [address] Free: [phone] No. [id number] [facility] + Lactic Zxlr1386-23-95 06:31:44* Test Item Value Reference Range Interpretation Comme nts PH (test code = 2) 7.39 7.35-7.45 PCO2 (test code = 9094616701) 31 See_Comment L [Automated messa ge] The system which generated this result transmitted reference range: 35 - 45 mmHg. The reference range was not used to interpret this result as normal/abnormal. PO2 (test code = 5125356653) 83 See_Comment [Automated messa ge] The system which generated this result transmitted reference range: 80 - 100 mmHg. The reference range was not used to interpret this result as normal/abnormal. HCO3 (test code = 8311321743) 18 See_Comment L [Automated messa ge] The system which generated this result transmitted reference range: 22 - 26 mEq/L. The reference range was not used to interpret this result as normal/abnormal. BE (test code = 8152615285) -6.2 See_Comment L [Automated messa ge] The system which generated this result transmitted reference range: -3.0 - 3.0 mEq/L. The reference range was not used to interpret this result as normal/abnormal. THB (test code = 5795998435) 7.3 g/dL 13.5-18.0 LL %O2HB (test code = 8586721742) 94.7 % 94.0-99.0 %COHB ART (test code = 2027520743) 1.4 % 0.0-1.5 %METHB ART (test code = 9239232571) 0.0 % 0.4-1.5 L VOL%O2 ART (test code = 8317144766) 9.9 % 15.0-23.0 L NA (test code = 3859445012) 132 mmol/L 135-145 L K+ (test code = 7391093608) 5.5 mmol/L 3.5-5.0 H AC CA IONZ (test code = 8127538067) 4.10 mg/dL 4.50-5.30 L GLUCOSE (test code = 2332015558) 243 mg/dL 70-110 H LACTIC ACID (test code = 4659898050) 6.28 mmol/L 0.50-2.20 H Lab Interpretation (test code = 25932-7) [facility] + Lactic Gpip5253-15-66 06:31:44* Test Item Value Reference Range Interpretation Comme nts PH (test code = 2) 7.39 7.35-7.45 PCO2 (test code = 6508423004) 31 See_Comment L [Automated messa ge] The system which generated this result transmitted reference range: 35 - 45 mmHg. The reference range was not used to interpret this result as normal/abnormal. PO2 (test code = 0955633354) 83 See_Comment [Automated messa ge] The system which generated this result transmitted reference range: 80 - 100 mmHg. The reference range was not used to interpret this result as normal/abnormal. HCO3 (test code = 0798853629) 18 See_Comment L [Automated messa ge] The system which generated this result transmitted reference range: 22 - 26 mEq/L. The reference range was not used to interpret this result as normal/abnormal. BE (test code = 8861924646) -6.2 See_Comment L [Automated messa ge] The system which generated this result transmitted reference range: -3.0 - 3.0 mEq/L. The reference range was not used to interpret this result as normal/abnormal. THB (test code = 3659233419) 7.3 g/dL 13.5-18.0 LL %O2HB (test code = 6243760331) 94.7 % 94.0-99.0 %COHB ART (test code = 6579830605) 1.4 % 0.0-1.5 %METHB ART (test code = 2657344932) 0.0 % 0.4-1.5 L VOL%O2 ART (test code = 8841604188) 9.9 % 15.0-23.0 L NA (test code = 5924174389) 132 mmol/L 135-145 L K+ (test code = 1729021933) 5.5 mmol/L 3.5-5.0 H AC CA IONZ (test code = 7582030617) 4.10 mg/dL 4.50-5.30 L GLUCOSE (test code = 1781208839) 243 mg/dL 70-110 H LACTIC ACID (test code = 3326241514) 6.28 mmol/L 0.50-2.20 H Lab Interpretation (test code = 52568-3) [facility]normal [facility] + Lactic Sspw4994-48-35 06:31:44* Test Item Value Reference Range Interpretation Comme nts PH (test code = 2) 7.39 7.35-7.45 PCO2 (test code = 1830249546) 31 See_Comment L [Automated messa ge] The system which generated this result transmitted reference range: 35 - 45 mmHg. The reference range was not used to interpret this result as normal/abnormal. PO2 (test code = 4296195838) 83 See_Comment [Automated messa ge] The system which generated this result transmitted reference range: 80 - 100 mmHg. The reference range was not used to interpret this result as normal/abnormal. HCO3 (test code = 0483656817) 18 See_Comment L [Automated messa ge] The system which generated this result transmitted reference range: 22 - 26 mEq/L. The reference range was not used to interpret this result as normal/abnormal. BE (test code = 1132925090) -6.2 See_Comment L [Automated messa ge] The system which generated this result transmitted reference range: -3.0 - 3.0 mEq/L. The reference range was not used to interpret this result as normal/abnormal. THB (test code = 8515087483) 7.3 g/dL 13.5-18.0 LL %O2HB (test code = 0740270982) 94.7 % 94.0-99.0 %COHB ART (test code = 3049602273) 1.4 % 0.0-1.5 %METHB ART (test code = 4580355618) 0.0 % 0.4-1.5 L VOL%O2 ART (test code = 8619555357) 9.9 % 15.0-23.0 L NA (test code = 6422203685) 132 mmol/L 135-145 L K+ (test code = 4390253477) 5.5 mmol/L 3.5-5.0 H AC CA IONZ (test code = 3483374059) 4.10 mg/dL 4.50-5.30 L GLUCOSE (test code = 7928817499) 243 mg/dL 70-110 H LACTIC ACID (test code = 9484173703) 6.28 mmol/L 0.50-2.20 H Lab Interpretation (test code = 49813-1) Abnormal [facility] GLUCOSE (AUTOMATED)2023-02-14 05:52:53* Test Item Value Reference Range Interpretation Comme nts POCT GLU (test code = 4547493061) 261 mg/dL 70-110 H Lab Interpretation (test cod e = 07367-5) Abnormal [facility] GLUCOSE (AUTOMATED)2023-02-14 05:52:53* Test Item Value Reference Range Interpretation Comme nts POCT GLU (test code = 9982997925) 261 mg/dL 70-110 H Lab Interpretation (test cod e = 97491-6) Abnormal [facility] GLUCOSE (AUTOMATED)2023-02-14 05:52:53* Test Item Value Reference Range Interpretation Comme nts POCT GLU (test code = 6473791507) 261 mg/dL 70-110 H Lab Interpretation (test cod e = 21085-3) [facility] Dtkc7315-27-07 05:01:55* Test Item Value Reference Range Interpretation Comme nts PH (test code = 2) 7.29 7.35-7.45 L PCO2 (test code = 7435741111) 38 See_Comment [Automated messa ge] The system which generated this result transmitted reference range: 35 - 45 mmHg. The reference range was not used to interpret this result as normal/abnormal. PO2 (test code = 5047353975) 71 See_Comment L [Automated messa ge] The system which generated this result transmitted reference range: 80 - 100 mmHg. The reference range was not used to interpret this result as normal/abnormal. HCO3 (test code = 6612187869) 18 See_Comment L [Automated messa ge] The system which generated this result transmitted reference range: 22 - 26 mEq/L. The reference range was not used to interpret this result as normal/abnormal. BE (test code = 0613045834) -8.0 See_Comment L [Automated messa ge] The system which generated this result transmitted reference range: -3.0 - 3.0 mEq/L. The reference range was not used to interpret this result as normal/abnormal. THB (test code = 4928755372) 8.3 g/dL 13.5-18.0 LL %O2HB (test code = 3115440802) 92.2 % 94.0-99.0 L %COHB ART (test code = 1930422402) 0.8 % 0.0-1.5 %METHB ART (test code = 9753584354) 0.1 % 0.4-1.5 L VOL%O2 ART (test code = 6394383331) 10.9 % 15.0-23.0 L NA (test code = 3215125041) 132 mmol/L 135-145 L K+ (test code = 1269214084) 4.9 mmol/L 3.5-5.0 AC CA IONZ (test code = 2952869130) 4.20 mg/dL 4.50-5.30 L GLUCOSE (test code = 6220683637) 239 mg/dL 70-110 H LACTIC ACID (test code = 9370587515) 5.88 mmol/L 0.50-2.20 H Lab Interpretation (test code = 14355-7) [facility] Lactic Lsdm3842-14-26 05:01:55* Test Item Value Reference Range Interpretation Comme nts PH (test code = 2) 7.29 7.35-7.45 L PCO2 (test code = 4784251274) 38 See_Comment [Automated messa ge] The system which generated this result transmitted reference range: 35 - 45 mmHg. The reference range was not used to interpret this result as normal/abnormal. PO2 (test code = 1814678446) 71 See_Comment L [Automated messa ge] The system which generated this result transmitted reference range: 80 - 100 mmHg. The reference range was not used to interpret this result as normal/abnormal. HCO3 (test code = 2070539382) 18 See_Comment L [Automated messa ge] The system which generated this result transmitted reference range: 22 - 26 mEq/L. The reference range was not used to interpret this result as normal/abnormal. BE (test code = 1483523219) -8.0 See_Comment L [Automated messa ge] The system which generated this result transmitted reference range: -3.0 - 3.0 mEq/L. The reference range was not used to interpret this result as normal/abnormal. THB (test code = 2673112819) 8.3 g/dL 13.5-18.0 LL %O2HB (test code = 5266323130) 92.2 % 94.0-99.0 L %COHB ART (test code = 5907156683) 0.8 % 0.0-1.5 %METHB ART (test code = 0660365893) 0.1 % 0.4-1.5 L VOL%O2 ART (test code = 0251386135) 10.9 % 15.0-23.0 L NA (test code = 7128888955) 132 mmol/L 135-145 L K+ (test code = 3146550765) 4.9 mmol/L 3.5-5.0 AC CA IONZ (test code = 4088201967) 4.20 mg/dL 4.50-5.30 L GLUCOSE (test code = 4260154059) 239 mg/dL 70-110 H LACTIC ACID (test code = 4664735743) 5.88 mmol/L 0.50-2.20 H Lab Interpretation (test code = 25175-9) [facility] Lactic Vfco0294-95-08 05:01:55* Test Item Value Reference Range Interpretation Comme nts PH (test code = 2) 7.29 7.35-7.45 L PCO2 (test code = 6459708780) 38 See_Comment [Automated messa ge] The system which generated this result transmitted reference range: 35 - 45 mmHg. The reference range was not used to interpret this result as normal/abnormal. PO2 (test code = 7853972579) 71 See_Comment L [Automated messa ge] The system which generated this result transmitted reference range: 80 - 100 mmHg. The reference range was not used to interpret this result as normal/abnormal. HCO3 (test code = 8858071251) 18 See_Comment L [Automated messa ge] The system which generated this result transmitted reference range: 22 - 26 mEq/L. The reference range was not used to interpret this result as normal/abnormal. BE (test code = 3607950760) -8.0 See_Comment L [Automated messa ge] The system which generated this result transmitted reference range: -3.0 - 3.0 mEq/L. The reference range was not used to interpret this result as normal/abnormal. THB (test code = 8140940471) 8.3 g/dL 13.5-18.0 LL %O2HB (test code = 5950365176) 92.2 % 94.0-99.0 L %COHB ART (test code = 3336438113) 0.8 % 0.0-1.5 %METHB ART (test code = 5525485228) 0.1 % 0.4-1.5 L VOL%O2 ART (test code = 8842154901) 10.9 % 15.0-23.0 L NA (test code = 1441898801) 132 mmol/L 135-145 L K+ (test code = 8848716010) 4.9 mmol/L 3.5-5.0 AC CA IONZ (test code = 0041463428) 4.20 mg/dL 4.50-5.30 L GLUCOSE (test code = 0839708453) 239 mg/dL 70-110 H LACTIC ACID (test code = 9516127189) 5.88 mmol/L 0.50-2.20 H Lab Interpretation (test code = 96294-8) Abnormal [facility] GLUCOSE (AUTOMATED)2023-02-14 04:55:27* Test Item Value Reference Range Interpretation Comme nts POCT GLU (test code = 2694280983) 263 mg/dL 70-110 H Lab Interpretation (test cod e = 73651-3) Abnormal [facility] GLUCOSE (AUTOMATED)2023-02-14 04:55:27* Test Item Value Reference Range Interpretation Comme nts POCT GLU (test code = 9965321114) 263 mg/dL 70-110 H Lab Interpretation (test cod e = 66997-7) Abnormal [facility] GLUCOSE (AUTOMATED)2023-02-14 04:55:27* Test Item Value Reference Range Interpretation Comme nts POCT GLU (test code = 0938941889) 263 mg/dL 70-110 H Lab Interpretation (test cod e = 98228-1) [facility] Lactic Qykg3325-66-95 04:10:03* Test Item Value Reference Range Interpretation Comme nts PH (test code = 2) 7.33 7.35-7.45 L PCO2 (test code = 5437538501) 34 See_Comment L [Automated messa ge] The system which generated this result transmitted reference range: 35 - 45 mmHg. The reference range was not used to interpret this result as normal/abnormal. PO2 (test code = 7407676185) 87 See_Comment [Automated messa ge] The system which generated this result transmitted reference range: 80 - 100 mmHg. The reference range was not used to interpret this result as normal/abnormal. HCO3 (test code = 1277085136) 18 See_Comment L [Automated messa ge] The system which generated this result transmitted reference range: 22 - 26 mEq/L. The reference range was not used to interpret this result as normal/abnormal. BE (test code = 6462719772) -7.4 See_Comment L [Automated messa ge] The system which generated this result transmitted reference range: -3.0 - 3.0 mEq/L. The reference range was not used to interpret this result as normal/abnormal. THB (test code = 3941554291) 9.9 g/dL 13.5-18.0 L %O2HB (test code = 4060662220) 95.8 % 94.0-99.0 %COHB ART (test code = 0278796019) 0.5 % 0.0-1.5 %METHB ART (test code = 1791181187) 0.0 % 0.4-1.5 L VOL%O2 ART (test code = 6635506742) 13.5 % 15.0-23.0 L NA (test code = 4421449932) 133 mmol/L 135-145 L K+ (test code = 9016316579) 4.8 mmol/L 3.5-5.0 AC CA IONZ (test code = 9540218401) 3.90 mg/dL 4.50-5.30 L GLUCOSE (test code = 3813613855) 227 mg/dL 70-110 H LACTIC ACID (test code = 2359698573) 4.99 mmol/L 0.50-2.20 H Lab Interpretation (test code = 10989-4) [facility] Lactic Ofjv9373-23-67 04:10:03* Test Item Value Reference Range Interpretation Comme nts PH (test code = 2) 7.33 7.35-7.45 L PCO2 (test code = 8450161696) 34 See_Comment L [Automated messa ge] The system which generated this result transmitted reference range: 35 - 45 mmHg. The reference range was not used to interpret this result as normal/abnormal. PO2 (test code = 8963612834) 87 See_Comment [Automated messa ge] The system which generated this result transmitted reference range: 80 - 100 mmHg. The reference range was not used to interpret this result as normal/abnormal. HCO3 (test code = 0620938095) 18 See_Comment L [Automated messa ge] The system which generated this result transmitted reference range: 22 - 26 mEq/L. The reference range was not used to interpret this result as normal/abnormal. BE (test code = 4281013257) -7.4 See_Comment L [Automated messa ge] The system which generated this result transmitted reference range: -3.0 - 3.0 mEq/L. The reference range was not used to interpret this result as normal/abnormal. THB (test code = 2921195905) 9.9 g/dL 13.5-18.0 L %O2HB (test code = 9358599109) 95.8 % 94.0-99.0 %COHB ART (test code = 6640474882) 0.5 % 0.0-1.5 %METHB ART (test code = 3027767520) 0.0 % 0.4-1.5 L VOL%O2 ART (test code = 8172065112) 13.5 % 15.0-23.0 L NA (test code = 1174941695) 133 mmol/L 135-145 L K+ (test code = 7441604356) 4.8 mmol/L 3.5-5.0 AC CA IONZ (test code = 8991316055) 3.90 mg/dL 4.50-5.30 L GLUCOSE (test code = 3799958205) 227 mg/dL 70-110 H LACTIC ACID (test code = 0980703692) 4.99 mmol/L 0.50-2.20 H Lab Interpretation (test code = 60944-4) [facility] Lactic Hxew6566-61-02 04:10:03* Test Item Value Reference Range Interpretation Comme nts PH (test code = 2) 7.33 7.35-7.45 L PCO2 (test code = 2510536433) 34 See_Comment L [Automated messa ge] The system which generated this result transmitted reference range: 35 - 45 mmHg. The reference range was not used to interpret this result as normal/abnormal. PO2 (test code = 7620462144) 87 See_Comment [Automated messa ge] The system which generated this result transmitted reference range: 80 - 100 mmHg. The reference range was not used to interpret this result as normal/abnormal. HCO3 (test code = 5330129358) 18 See_Comment L [Automated messa ge] The system which generated this result transmitted reference range: 22 - 26 mEq/L. The reference range was not used to interpret this result as normal/abnormal. BE (test code = 6476544199) -7.4 See_Comment L [Automated messa ge] The system which generated this result transmitted reference range: -3.0 - 3.0 mEq/L. The reference range was not used to interpret this result as normal/abnormal. THB (test code = 9565981821) 9.9 g/dL 13.5-18.0 L %O2HB (test code = 6370121121) 95.8 % 94.0-99.0 %COHB ART (test code = 1996840372) 0.5 % 0.0-1.5 %METHB ART (test code = 7739701695) 0.0 % 0.4-1.5 L VOL%O2 ART (test code = 7544304127) 13.5 % 15.0-23.0 L NA (test code = 4120017558) 133 mmol/L 135-145 L K+ (test code = 7691682476) 4.8 mmol/L 3.5-5.0 AC CA IONZ (test code = 4512134587) 3.90 mg/dL 4.50-5.30 L GLUCOSE (test code = 4740614892) 227 mg/dL 70-110 H LACTIC ACID (test code = 7590158779) 4.99 mmol/L 0.50-2.20 H Lab Interpretation (test code = 09186-0) Abnormal [facility] GLUCOSE (AUTOMATED)2023-02-14 04:05:23* Test Item Value Reference Range Interpretation Comme [facility] POCT GLU (test code = 1414646397) 247 mg/dL 70-110 H Lab Interpretation (test cod e = 47356-4) Abnormal [facility] GLUCOSE (AUTOMATED)2023-02-14 04:05:23* Test Item Value Reference Range Interpretation Comme [facility] POCT GLU (test code = 5212322089) 247 mg/dL 70-110 H Lab Interpretation (test cod e = 30061-3) Abnormal [facility] GLUCOSE (AUTOMATED)2023-02-14 04:05:23* Test Item Value Reference Range Interpretation Comme [facility] POCT GLU (test code = 6334048516) 247 mg/dL 70-110 H Lab Interpretation (test cod e = 27081-5) [facility] 1 Units 2023-02-14 02:51:27* Test Item Value Reference Range Interpretation Comme nts Cross Match Result (test code = 4409) Compatible ISBT Blood Type Code (test code = 055947) 5100 Unit Blood Type (test code = 4410) O Pos Unit Number (test code = 4411) [id number] Blood Expiration Date & Time (test code = 339954) 926609202679 Status Information (test code = 4412) Issued Product Identification (test code = 4413) Red Blood Cells Product Code (test code = 4414) [id number] Performed at [facility] Blood [address] Free: [phone] No. [id number] [facility] Packed RBC (in units), 1 Units 2023-02-14 02:51:27* Test Item Value Reference Range Interpretation Comme nts Cross Match Result (test code = 4409) Compatible ISBT Blood Type Code (test code = 459841) 5100 Unit Blood Type (test code = 4410) O Pos Unit Number (test code = 4411) [id number] Blood Expiration Date & Time (test code = 967122) 371031355950 Status Information (test code = 4412) Issued Product Identification (test code = 4413) Red Blood Cells Product Code (test code = 4414) [id number] Performed at [address] Free: [phone] No. [id number] [facility] Packed RBC (in units), 1 Units 2023-02-14 02:51:27* Test Item Value Reference Range Interpretation Comme nts Cross Match Result (test code = 4409) Compatible ISBT Blood Type Code (test code = 244703) 5100 Unit Blood Type (test code = 4410) O Pos Unit Number (test code = 4411) [id number] Blood Expiration Date & Time (test code = 767696) 528465293743 Status Information (test code = 4412) Issued Product Identification (test code = 4413) Red Blood Cells Product Code (test code = 4414) [id number] Performed at [facility] Blood [address] Free: [phone] No. [id number] [facility]GLU[facility]CA2+ (While Intubated) 2023-02-14 02:48:14* Test Item Value Reference Range Interpretation Comme nts PH (test code = 2) 7.26 7.35-7.45 L PCO2 (test code = 1031131419) 46 See_Comment H [Automated messa ge] The system which generated this result transmitted reference range: 35 - 45 mmHg. The reference range was not used to interpret this result as normal/abnormal. PO2 (test code = 6647691051) 92 See_Comment [Automated messa ge] The system which generated this result transmitted reference range: 80 - 100 mmHg. The reference range was not used to interpret this result as normal/abnormal. HCO3 (test code = 0778588749) 20 See_Comment L [Automated messa ge] The system which generated this result transmitted reference range: 22 - 26 mEq/L. The reference range was not used to interpret this result as normal/abnormal. BE (test code = 9701437736) -6.4 See_Comment L [Automated messa ge] The system which generated this result transmitted reference range: -3.0 - 3.0 mEq/L. The reference range was not used to interpret this result as normal/abnormal. THB (test code = 0238561231) 9.3 g/dL 13.5-18.0 L %O2HB (test code = 7019491202) 95.7 % 94.0-99.0 %COHB ART (test code = 2887693699) 0.5 % 0.0-1.5 %METHB ART (test code = 3596608769) 0.0 % 0.4-1.5 L VOL%O2 ART (test code = 4419743996) 12.7 % 15.0-23.0 L NA (test code = 2189041358) 133 mmol/L 135-145 L K+ (test code = 1643284010) 4.1 mmol/L 3.5-5.0 AC CA IONZ (test code = 5048788918) 4.40 mg/dL 4.50-5.30 L GLUCOSE (test code = 1301484474) 191 mg/dL 70-110 H Lab Interpretation (test code = 89532-1) [facility]+K+GLU+CA2+ (While Intubated) 2023-02-14 02:48:14* Test Item Value Reference Range Interpretation Comme nts PH (test code = 2) 7.26 7.35-7.45 L PCO2 (test code = 5955551143) 46 See_Comment H [Automated messa ge] The system which generated this result transmitted reference range: 35 - 45 mmHg. The reference range was not used to interpret this result as normal/abnormal. PO2 (test code = 8751528330) 92 See_Comment [Automated messa ge] The system which generated this result transmitted reference range: 80 - 100 mmHg. The reference range was not used to interpret this result as normal/abnormal. HCO3 (test code = 9512649638) 20 See_Comment L [Automated messa ge] The system which generated this result transmitted reference range: 22 - 26 mEq/L. The reference range was not used to interpret this result as normal/abnormal. BE (test code = 6607715076) -6.4 See_Comment L [Automated messa ge] The system which generated this result transmitted reference range: -3.0 - 3.0 mEq/L. The reference range was not used to interpret this result as normal/abnormal. THB (test code = 8282377726) 9.3 g/dL 13.5-18.0 L %O2HB (test code = 5178112064) 95.7 % 94.0-99.0 %COHB ART (test code = 9914412384) 0.5 % 0.0-1.5 %METHB ART (test code = 6324574373) 0.0 % 0.4-1.5 L VOL%O2 ART (test code = 8755181092) 12.7 % 15.0-23.0 L NA (test code = 6666280624) 133 mmol/L 135-145 L K+ (test code = 4972911752) 4.1 mmol/L 3.5-5.0 AC CA IONZ (test code = 0992872644) 4.40 mg/dL 4.50-5.30 L GLUCOSE (test code = 6842317523) 191 mg/dL 70-110 H Lab Interpretation (test code = 49634-9) [facility]+K+GLU+CA2+ (While Intubated) 2023-02-14 02:48:14* Test Item Value Reference Range Interpretation Comme nts PH (test code = 2) 7.26 7.35-7.45 L PCO2 (test code = 7235167308) 46 See_Comment H [Automated messa ge] The system which generated this result transmitted reference range: 35 - 45 mmHg. The reference range was not used to interpret this result as normal/abnormal. PO2 (test code = 3691064956) 92 See_Comment [Automated messa ge] The system which generated this result transmitted reference range: 80 - 100 mmHg. The reference range was not used to interpret this result as normal/abnormal. HCO3 (test code = 8789760815) 20 See_Comment L [Automated messa ge] The system which generated this result transmitted reference range: 22 - 26 mEq/L. The reference range was not used to interpret this result as normal/abnormal. BE (test code = 9629368475) -6.4 See_Comment L [Automated messa ge] The system which generated this result transmitted reference range: -3.0 - 3.0 mEq/L. The reference range was not used to interpret this result as normal/abnormal. THB (test code = 7187950402) 9.3 g/dL 13.5-18.0 L %O2HB (test code = 1479250812) 95.7 % 94.0-99.0 %COHB ART (test code = 9492351800) 0.5 % 0.0-1.5 %METHB ART (test code = 7365341877) 0.0 % 0.4-1.5 L VOL%O2 ART (test code = 4796028438) 12.7 % 15.0-23.0 L NA (test code = 9277209695) 133 mmol/L 135-145 L K+ (test code = 3883860732) 4.1 mmol/L 3.5-5.0 AC CA IONZ (test code = 4027135643) 4.40 mg/dL 4.50-5.30 L GLUCOSE (test code = 9713039287) 191 mg/dL 70-110 H Lab Interpretation (test code = 37406-4) Abnormal [facility] WITH GLBE8206-26-54 02:36:00* Test Item Value Reference Range Interpretation Comme nts WBC (test code = 6690-2) 16.72 See_Comment H [Automated message] The system which generated this result transmitted reference range: 4.20 - 10.70 10*3/?L. The reference range was not used to interpret this result as normal/abnormal. RBC (test code = 789-8) 2.71 See_Comment L [Automated message] The system which generated this result transmitted reference range: 4.26 - 5.52 10*6/?L. The reference range was not used to interpret this result as normal/abnormal. HGB (test code = 718-7) 7.7 g/dL 12.2-16.4 L HCT (test code = 4544-3) 23.6 % 38.4-49.3 L MCV (test code = 787-2) 87.1 fL 81.7-95.6 MCH (test code = 785-6) 28.4 pg 26.1-32.7 MCHC (test code = 786-4) 32.6 g/dL 31.2-35.0 RDW-SD (test code = 15167-8) 43.4 fL 38.5-51.6 RDW-CV (test code = 788-0) 14.0 % 12.1-15.4 PLT (test code = 777-3) 109 See_Comment L [Automated message] The system which generated this result transmitted reference range: 150 - 328 10*3/?L. The reference range was not used to interpret this result as normal/abnormal. MPV (test code = 10087-0) 10.3 fL 9.8-13.0 NRBC/100 WBC (test code = 1167085027) 0.0 See_Comment [Automated message] The system which generated this result transmitted reference range: 0.0 - 10.0 /100 WBCs. The reference range was not used to interpret this result as normal/abnormal. NRBC x10^3 (test code = 8902751539) See_Comment [Automated message] The system which generated this result transmitted reference range: 10*3/?L. The reference range was not used to interpret this result as normal/abnormal. GRAN MAT (NEUT) % (test code = 770-8) 77.9 % IMM GRAN % (test code = 8390799423) 0.70 % LYMPH % (test code = 736-9) 9.3 % MONO % (test code = 5905-5) 11.8 % EOS % (test code = 713-8) 0.1 % BASO % (test code = 706-2) 0.2 % GRAN MAT x10^3(ANC) (test code = 0049148613) 13.01 10*3/uL 1.99-6.95 H IMM GRAN x10^3 (test code = 6934435293) 0.12 10*3/uL 0.00-0.06 H LYMPH x10^3 (test code = 731-0) 1.56 10*3/uL 1.09-3.23 MONO x10^3 (test code = 742-7) 1.98 10*3/uL 0.36-1.02 H EOS x10^3 (test code = 711-2) 0.06-0.53 L BASO x10^3 (test code = 704-7) 0.04 10*3/uL 0.01-0.09 BRADLEY CELLS (test code = 7790-9) 2+ See_Comment A [Automated message] The system which generated this result transmitted reference range: (none). The reference range was not used to interpret this result as normal/abnormal. BANDS (test code = 7620550964) Increased A Lab Interpretation (test code = 69707-5) Abnormal [facility] WITH NOKL0037-19-06 02:36:00* Test Item Value Reference Range Interpretation Comme nts WBC (test code = 6690-2) 16.72 See_Comment H [Automated message] The system which generated this result transmitted reference range: 4.20 - 10.70 10*3/?L. The reference range was not used to interpret this result as normal/abnormal. RBC (test code = 789-8) 2.71 See_Comment L [Automated message] The system which generated this result transmitted reference range: 4.26 - 5.52 10*6/?L. The reference range was not used to interpret this result as normal/abnormal. HGB (test code = 718-7) 7.7 g/dL 12.2-16.4 L HCT (test code = 4544-3) 23.6 % 38.4-49.3 L MCV (test code = 787-2) 87.1 fL 81.7-95.6 MCH (test code = 785-6) 28.4 pg 26.1-32.7 MCHC (test code = 786-4) 32.6 g/dL 31.2-35.0 RDW-SD (test code = 42952-8) 43.4 fL 38.5-51.6 RDW-CV (test code = 788-0) 14.0 % 12.1-15.4 PLT (test code = 777-3) 109 See_Comment L [Automated message] The system which generated this result transmitted reference range: 150 - 328 10*3/?L. The reference range was not used to interpret this result as normal/abnormal. MPV (test code = 47655-2) 10.3 fL 9.8-13.0 NRBC/100 WBC (test code = 0448579066) 0.0 See_Comment [Automated message] The system which generated this result transmitted reference range: 0.0 - 10.0 /100 WBCs. The reference range was not used to interpret this result as normal/abnormal. NRBC x10^3 (test code = 0303981694) See_Comment [Automated message] The system which generated this result transmitted reference range: 10*3/?L. The reference range was not used to interpret this result as normal/abnormal. GRAN MAT (NEUT) % (test code = 770-8) 77.9 % IMM GRAN % (test code = 6333250954) 0.70 % LYMPH % (test code = 736-9) 9.3 % MONO % (test code = 5905-5) 11.8 % EOS % (test code = 713-8) 0.1 % BASO % (test code = 706-2) 0.2 % GRAN MAT x10^3(ANC) (test code = 3909599827) 13.01 10*3/uL 1.99-6.95 H IMM GRAN x10^3 (test code = 0671404089) 0.12 10*3/uL 0.00-0.06 H LYMPH x10^3 (test code = 731-0) 1.56 10*3/uL 1.09-3.23 MONO x10^3 (test code = 742-7) 1.98 10*3/uL 0.36-1.02 H EOS x10^3 (test code = 711-2) 0.06-0.53 L BASO x10^3 (test code = 704-7) 0.04 10*3/uL 0.01-0.09 BRADLEY CELLS (test code = 7790-9) 2+ See_Comment A [Automated message] The system which generated this result transmitted reference range: (none). The reference range was not used to interpret this result as normal/abnormal. BANDS (test code = 8044123629) Increased A Lab Interpretation (test code = 16621-5) Abnormal [facility] WITH [id number] 02:36:00* Test Item Value Reference Range Interpretation Comme nts WBC (test code = 6690-2) 16.72 See_Comment H [Automated message] The system which generated this result transmitted reference range: 4.20 - 10.70 10*3/?L. The reference range was not used to interpret this result as normal/abnormal. RBC (test code = 789-8) 2.71 See_Comment L [Automated message] The system which generated this result transmitted reference range: 4.26 - 5.52 10*6/?L. The reference range was not used to interpret this result as normal/abnormal. HGB (test code = 718-7) 7.7 g/dL 12.2-16.4 L HCT (test code = 4544-3) 23.6 % 38.4-49.3 L MCV (test code = 787-2) 87.1 fL 81.7-95.6 MCH (test code = 785-6) 28.4 pg 26.1-32.7 MCHC (test code = 786-4) 32.6 g/dL 31.2-35.0 RDW-SD (test code = 44224-5) 43.4 fL 38.5-51.6 RDW-CV (test code = 788-0) 14.0 % 12.1-15.4 PLT (test code = 777-3) 109 See_Comment L [Automated message] The system which generated this result transmitted reference range: 150 - 328 10*3/?L. The reference range was not used to interpret this result as normal/abnormal. MPV (test code = 58876-2) 10.3 fL 9.8-13.0 NRBC/100 WBC (test code = 8521763990) 0.0 See_Comment [Automated message] The system which generated this result transmitted reference range: 0.0 - 10.0 /100 WBCs. The reference range was not used to interpret this result as normal/abnormal. NRBC x10^3 (test code = 0819724028) See_Comment [Automated message] The system which generated this result transmitted reference range: 10*3/?L. The reference range was not used to interpret this result as normal/abnormal. GRAN MAT (NEUT) % (test code = 770-8) 77.9 % IMM GRAN % (test code = 3002028761) 0.70 % LYMPH % (test code = 736-9) 9.3 % MONO % (test code = 5905-5) 11.8 % EOS % (test code = 713-8) 0.1 % BASO % (test code = 706-2) 0.2 % GRAN MAT x10^3(ANC) (test code = 3479041050) 13.01 10*3/uL 1.99-6.95 H IMM GRAN x10^3 (test code = 9578055265) 0.12 10*3/uL 0.00-0.06 H LYMPH x10^3 (test code = 731-0) 1.56 10*3/uL 1.09-3.23 MONO x10^3 (test code = 742-7) 1.98 10*3/uL 0.36-1.02 H EOS x10^3 (test code = 711-2) 0.06-0.53 L BASO x10^3 (test code = 704-7) 0.04 10*3/uL 0.01-0.09 BRADLEY CELLS (test code = 7790-9) 2+ See_Comment A [Automated message] The system which generated this result transmitted reference range: (none). The reference range was not used to interpret this result as normal/abnormal. BANDS (test code = 1676041823) Increased A Lab Interpretation (test code = 18760-0) Abnormal [facility] Packed RBC (in units), 1 Units 2023-02-14 02:07:54* Test Item Value Reference Range Interpretation Comme nts Cross Match Result (test code = 4409) Compatible ISBT Blood Type Code (test code = 839540) 5100 Unit Blood Type (test code = 4410) O Pos Unit Number (test code = 4411) [id number] Blood Expiration Date & Time (test code = 234129) [id number] Status Information (test code = 4412) Issued Product Identification (test code = 4413) Red Blood Cells Product Code (test code = 4414) [id number] Performed at [facility] [place] [id number] Free: [phone] No. [id number] [facility] Packed RBC (in units), 1 Units 2023-02-14 02:07:54* Test Item Value Reference Range Interpretation Comme nts Cross Match Result (test code = 4409) Compatible ISBT Blood Type Code (test code = 030107) 5100 Unit Blood Type (test code = 4410) O Pos Unit Number (test code = 4411) [id number] Blood Expiration Date & Time (test code = 344482) 774047091788 Status Information (test code = 4412) Issued Product Identification (test code = 4413) Red Blood Cells Product Code (test code = 4414) [id number] Performed at [facility] [address] [address]Qovm Free: [phone] No. [id number] [facility] Packed RBC (in units), 1 Units 2023-02-14 02:07:54* Test Item Value Reference Range Interpretation Comme nts Cross Match Result (test code = 4409) Compatible ISBT Blood Type Code (test code = 172482) 5100 Unit Blood Type (test code = 4410) O Pos Unit Number (test code = 4411) [id number] Blood Expiration Date & Time (test code = 770751) [id number] Status Information (test code = 4412) Issued Product Identification (test code = 4413) Red Blood Cells Product Code (test code = 4414) [id number] Performed at [facility] Blood [address] [address]Iiju Free: [phone] No. [id number] [facility] Lactic [id number] 02:06:48* Test Item Value Reference Range Interpretation Comme nts PH (test code = 2) 7.23 7.35-7.45 L PCO2 (test code = 6913743795) 51 See_Comment H [Automated messa ge] The system which generated this result transmitted reference range: 35 - 45 mmHg. The reference range was not used to interpret this result as normal/abnormal. PO2 (test code = 0594163226) 88 See_Comment [Automated messa ge] The system which generated this result transmitted reference range: 80 - 100 mmHg. The reference range was not used to interpret this result as normal/abnormal. HCO3 (test code = 2442233049) 21 See_Comment L [Automated messa ge] The system which generated this result transmitted reference range: 22 - 26 mEq/L. The reference range was not used to interpret this result as normal/abnormal. BE (test code = 2781176861) -5.9 See_Comment L [Automated messa ge] The system which generated this result transmitted reference range: -3.0 - 3.0 mEq/L. The reference range was not used to interpret this result as normal/abnormal. THB (test code = 6332299992) 8.5 g/dL 13.5-18.0 L %O2HB (test code = 2488487495) 94.1 % 94.0-99.0 %COHB ART (test code = 4130037990) 0.6 % 0.0-1.5 %METHB ART (test code = 0385664055) 0.1 % 0.4-1.5 L VOL%O2 ART (test code = 1142224226) 11.4 % 15.0-23.0 L NA (test code = 9318637512) 134 mmol/L 135-145 L K+ (test code = 7439523435) 3.8 mmol/L 3.5-5.0 AC CA IONZ (test code = 4781245774) 3.80 mg/dL 4.50-5.30 L GLUCOSE (test code = 1760147815) 183 mg/dL 70-110 H LACTIC ACID (test code = 9044759559) 4.09 mmol/L 0.50-2.20 H Lab Interpretation (test code = 48991-9) [facility] Lactic [id number] 02:06:48* Test Item Value Reference Range Interpretation Comme nts PH (test code = 2) 7.23 7.35-7.45 L PCO2 (test code = 0908258167) 51 See_Comment H [Automated messa ge] The system which generated this result transmitted reference range: 35 - 45 mmHg. The reference range was not used to interpret this result as normal/abnormal. PO2 (test code = 1372594628) 88 See_Comment [Automated messa ge] The system which generated this result transmitted reference range: 80 - 100 mmHg. The reference range was not used to interpret this result as normal/abnormal. HCO3 (test code = 1745511746) 21 See_Comment L [Automated messa ge] The system which generated this result transmitted reference range: 22 - 26 mEq/L. The reference range was not used to interpret this result as normal/abnormal. BE (test code = 6612819223) -5.9 See_Comment L [Automated messa ge] The system which generated this result transmitted reference range: -3.0 - 3.0 mEq/L. The reference range was not used to interpret this result as normal/abnormal. THB (test code = 7078646090) 8.5 g/dL 13.5-18.0 L %O2HB (test code = 2908061028) 94.1 % 94.0-99.0 %COHB ART (test code = 8071744063) 0.6 % 0.0-1.5 %METHB ART (test code = 9238905017) 0.1 % 0.4-1.5 L VOL%O2 ART (test code = 9928235690) 11.4 % 15.0-23.0 L NA (test code = 3233182738) 134 mmol/L 135-145 L K+ (test code = 3279488142) 3.8 mmol/L 3.5-5.0 AC CA IONZ (test code = 6374330616) 3.80 mg/dL 4.50-5.30 L GLUCOSE (test code = 9562259949) 183 mg/dL 70-110 H LACTIC ACID (test code = 8078233272) 4.09 mmol/L 0.50-2.20 H Lab Interpretation (test code = 61933-9) [facility] Lactic Uuon7019-33-97 02:06:48* Test Item Value Reference Range Interpretation Comme nts PH (test code = 2) 7.23 7.35-7.45 L PCO2 (test code = 9757627861) 51 See_Comment H [Automated messa ge] The system which generated this result transmitted reference range: 35 - 45 mmHg. The reference range was not used to interpret this result as normal/abnormal. PO2 (test code = 9379375769) 88 See_Comment [Automated messa ge] The system which generated this result transmitted reference range: 80 - 100 mmHg. The reference range was not used to interpret this result as normal/abnormal. HCO3 (test code = 7982448977) 21 See_Comment L [Automated messa ge] The system which generated this result transmitted reference range: 22 - 26 mEq/L. The reference range was not used to interpret this result as normal/abnormal. BE (test code = 9530604125) -5.9 See_Comment L [Automated messa ge] The system which generated this result transmitted reference range: -3.0 - 3.0 mEq/L. The reference range was not used to interpret this result as normal/abnormal. THB (test code = 2260142978) 8.5 g/dL 13.5-18.0 L %O2HB (test code = 0254979098) 94.1 % 94.0-99.0 %COHB ART (test code = 4280578797) 0.6 % 0.0-1.5 %METHB ART (test code = 4946351597) 0.1 % 0.4-1.5 L VOL%O2 ART (test code = 4407150392) 11.4 % 15.0-23.0 L NA (test code = 0237385506) 134 mmol/L 135-145 L K+ (test code = 5985298442) 3.8 mmol/L 3.5-5.0 AC CA IONZ (test code = 6181279853) 3.80 mg/dL 4.50-5.30 L GLUCOSE (test code = 8698495072) 183 mg/dL 70-110 H LACTIC ACID (test code = 7896471281) 4.09 mmol/L 0.50-2.20 H Lab Interpretation (test code = 93446-1) [facility]normal [facility] / [id number] 02:02:10* Test Item Value Reference Range Interpretation Comme [facility] PROTIME PATIENT (test code = 5964-2) 17.2 See_Comment H [Automated messa ge] The system which generated this result transmitted reference range: 10.1 - 12.6 Seconds. The reference range was not used to interpret this result as normal/abnormal. INR (test code = 6301-6) 1.5 Normal INR <1.1; Warfarin Therapeutic range 2.0 to 3.0 or 2.5 to 3.5, depending upon the indications. Lab Interpretation (test code = 65993-7) [facility]normal [facility] / [id number] 02:02:10* Test Item Value Reference Range Interpretation Comme [facility] PROTIME PATIENT (test code = 5964-2) 17.2 See_Comment H [Automated messa ge] The system which generated this result transmitted reference range: 10.1 - 12.6 Seconds. The reference range was not used to interpret this result as normal/abnormal. INR (test code = 6301-6) 1.5 Normal INR <1.1; Warfarin Therapeutic range 2.0 to 3.0 or 2.5 to 3.5, depending upon the indications. Lab Interpretation (test code = 14228-1) [facility]normal [facility] / [id number] 02:02:10* Test Item Value Reference Range Interpretation Comme [facility] PROTIME PATIENT (test code = 5964-2) 17.2 See_Comment H [Automated messa ge] The system which generated this result transmitted reference range: 10.1 - 12.6 Seconds. The reference range was not used to interpret this result as normal/abnormal. INR (test code = 6301-6) 1.5 Normal INR <1.1; Warfarin Therapeutic range 2.0 to 3.0 or 2.5 to 3.5, depending upon the indications. Lab Interpretation (test code = 19148-7) Abnormal [facility] METABOLIC PANEL (NA, K, CL, CO2, GLUCOSE, BUN, CREATININE, CA)2023-02-14 01:46:48* Test Item Value Reference Range Interpretation Comme nts NA (test code = 5682482375) 132 mmol/L 135-145 L K (test code = 7620406504) 3.9 mmol/L 3.5-5.0 Slight hemolysis CL (test code = 2255689073) 105 mmol/L 98-108 CO2 TOTAL (test code = 1793471544) 20 mmol/L 23-31 L AGAP (test code = 6992036403) 7 2-16 BUN (test code = 9070070484) 27 mg/dL 7-23 H Slight hemolysis GLUCOSE (test code = 1518261576) 174 mg/dL 70-110 H CREATININE (test code = 6592370049) 1.22 mg/dL 0.60-1.25 CALCIUM (test code = 2215922807) 6.3 mg/dL 8.6-10.6 L eGFR (test code = 0827268235) 60.4 mL/min/1.73m2 MIKAYLA (test code = MIKAYLA) Association of [...] or abnormalities in imaging tests). Lab Interpretation (test code = 21280-7) Abnormal [facility] METABOLIC PANEL (NA, K, CL, CO2, GLUCOSE, BUN, CREATININE, CA)2023-02-14 01:46:48* Test Item Value Reference Range Interpretation Comme nts NA (test code = 2350677787) 132 mmol/L 135-145 L K (test code = 6697699310) 3.9 mmol/L 3.5-5.0 Slight hemolysis CL (test code = 2340899479) 105 mmol/L 98-108 CO2 TOTAL (test code = 1734708301) 20 mmol/L 23-31 L AGAP (test code = 4521511570) 7 2-16 BUN (test code = 9860788876) 27 mg/dL 7-23 H Slight hemolysis GLUCOSE (test code = 8025818385) 174 mg/dL 70-110 H CREATININE (test code = 0936616884) 1.22 mg/dL 0.60-1.25 CALCIUM (test code = 6904612050) 6.3 mg/dL 8.6-10.6 L eGFR (test code = 9607418992) 60.4 mL/min/1.73m2 MIKAYLA (test code = MIKAYLA) Association of [...] or abnormalities in imaging tests). Lab Interpretation (test code = 73809-6) [facility] (NA, K, CL, CO2, GLUCOSE, BUN, CREATININE, CA)2023-02-14 01:46:48* Test Item Value Reference Range Interpretation Comme nts NA (test code = 6572724664) 132 mmol/L 135-145 L K (test code = 2747194129) 3.9 mmol/L 3.5-5.0 Slight hemolysis CL (test code = 7970344176) 105 mmol/L 98-108 CO2 TOTAL (test code = 3588077952) 20 mmol/L 23-31 L AGAP (test code = 6279793025) 7 2-16 BUN (test code = 5985578297) 27 mg/dL 7-23 H Slight hemolysis GLUCOSE (test code = 0158852548) 174 mg/dL 70-110 H CREATININE (test code = 9487804279) 1.22 mg/dL 0.60-1.25 CALCIUM (test code = 5272251776) 6.3 mg/dL 8.6-10.6 L eGFR (test code = 8561079876) 60.4 mL/min/1.73m2 MIKAYLA (test code = MIKAYLA) Association of [...] or abnormalities in imaging tests). Lab Interpretation (test code = 54857-0) [facility] + Lactic [id number] 01:46:02* Test Item Value Reference Range Interpretation Comme nts PH (test code = 2) 7.25 7.35-7.45 L PCO2 (test code = 1604340115) 47 See_Comment H [Automated messa Flowbox] The system which generated this result transmitted reference range: 35 - 45 mmHg. The reference range was not used to interpret this result as normal/abnormal. PO2 (test code = 7981516322) 95 See_Comment [Automated messa Flowbox] The system which generated this result transmitted reference range: 80 - 100 mmHg. The reference range was not used to interpret this result as normal/abnormal. HCO3 (test code = 2491962582) 20 See_Comment L [Automated messa Flowbox] The system which generated this result transmitted reference range: 22 - 26 mEq/L. The reference range was not used to interpret this result as normal/abnormal. BE (test code = 7690800536) -7.1 See_Comment L [Automated messa ge] The system which generated this result transmitted reference range: -3.0 - 3.0 mEq/L. The reference range was not used to interpret this result as normal/abnormal. THB (test code = 7645705430) 8.3 g/dL 13.5-18.0 LL %O2HB (test code = 1337298581) 95.7 % 94.0-99.0 %COHB ART (test code = 8586188941) 0.4 % 0.0-1.5 %METHB ART (test code = 2181088414) 0.2 % 0.4-1.5 L VOL%O2 ART (test code = 6853996445) 11.3 % 15.0-23.0 L NA (test code = 0850339500) 134 mmol/L 135-145 L K+ (test code = 4398704183) 3.7 mmol/L 3.5-5.0 AC CA IONZ (test code = 3896370545) 3.80 mg/dL 4.50-5.30 L GLUCOSE (test code = 7460658119) 167 mg/dL 70-110 H LACTIC ACID (test code = 9484707387) 3.83 mmol/L 0.50-2.20 H Lab Interpretation (test code = 08509-3) [facility]normal [facility] + Lactic [id number] 01:46:02* Test Item Value Reference Range Interpretation Comme nts PH (test code = 2) 7.25 7.35-7.45 L PCO2 (test code = 7485136484) 47 See_Comment H [Automated messa ge] The system which generated this result transmitted reference range: 35 - 45 mmHg. The reference range was not used to interpret this result as normal/abnormal. PO2 (test code = 3756895439) 95 See_Comment [Automated messa ge] The system which generated this result transmitted reference range: 80 - 100 mmHg. The reference range was not used to interpret this result as normal/abnormal. HCO3 (test code = 2308385927) 20 See_Comment L [Automated messa ge] The system which generated this result transmitted reference range: 22 - 26 mEq/L. The reference range was not used to interpret this result as normal/abnormal. BE (test code = 2967088613) -7.1 See_Comment L [Automated messa ge] The system which generated this result transmitted reference range: -3.0 - 3.0 mEq/L. The reference range was not used to interpret this result as normal/abnormal. THB (test code = 2850664189) 8.3 g/dL 13.5-18.0 LL %O2HB (test code = 9507097131) 95.7 % 94.0-99.0 %COHB ART (test code = 7390652451) 0.4 % 0.0-1.5 %METHB ART (test code = 6158037832) 0.2 % 0.4-1.5 L VOL%O2 ART (test code = 2347650990) 11.3 % 15.0-23.0 L NA (test code = 3648190688) 134 mmol/L 135-145 L K+ (test code = 9795897713) 3.7 mmol/L 3.5-5.0 AC CA IONZ (test code = 1955117954) 3.80 mg/dL 4.50-5.30 L GLUCOSE (test code = 4598732919) 167 mg/dL 70-110 H LACTIC ACID (test code = 5849971959) 3.83 mmol/L 0.50-2.20 H Lab Interpretation (test code = 01290-0) [facility] + Lactic Lpek4584-10-18 01:46:02* Test Item Value Reference Range Interpretation Comme nts PH (test code = 2) 7.25 7.35-7.45 L PCO2 (test code = 1348991951) 47 See_Comment H [Automated messa ge] The system which generated this result transmitted reference range: 35 - 45 mmHg. The reference range was not used to interpret this result as normal/abnormal. PO2 (test code = 7438013529) 95 See_Comment [Automated messa ge] The system which generated this result transmitted reference range: 80 - 100 mmHg. The reference range was not used to interpret this result as normal/abnormal. HCO3 (test code = 6586272804) 20 See_Comment L [Automated messa ge] The system which generated this result transmitted reference range: 22 - 26 mEq/L. The reference range was not used to interpret this result as normal/abnormal. BE (test code = 4806639597) -7.1 See_Comment L [Automated messa ge] The system which generated this result transmitted reference range: -3.0 - 3.0 mEq/L. The reference range was not used to interpret this result as normal/abnormal. THB (test code = 7070697195) 8.3 g/dL 13.5-18.0 LL %O2HB (test code = 5583372876) 95.7 % 94.0-99.0 %COHB ART (test code = 0425036700) 0.4 % 0.0-1.5 %METHB ART (test code = 5625195419) 0.2 % 0.4-1.5 L VOL%O2 ART (test code = 4953028671) 11.3 % 15.0-23.0 L NA (test code = 0923913875) 134 mmol/L 135-145 L K+ (test code = 6647918140) 3.7 mmol/L 3.5-5.0 AC CA IONZ (test code = 2635560099) 3.80 mg/dL 4.50-5.30 L GLUCOSE (test code = 5511257833) 167 mg/dL 70-110 H LACTIC ACID (test code = 4420507925) 3.83 mmol/L 0.50-2.20 H Lab Interpretation (test code = 58215-5) [facility]normal [facility] / [id number] 01:44:11* Test Item Value Reference Range Interpretation Comme nts PROTIME PATIENT (test code = 5964-2) 17.1 See_Comment H [Automated messa ge] The system which generated this result transmitted reference range: 10.1 - 12.6 Seconds. The reference range was not used to interpret this result as normal/abnormal. INR (test code = 6301-6) 1.5 Normal INR <1.1; Warfarin Therapeutic range 2.0 to 3.0 or 2.5 to 3.5, depending upon the indications. Lab Interpretation (test code = 79253-6) [id number] 01:44:11* Test Item Value Reference Range Interpretation Comme nts APTT Patient (test code = 3173-2) 45 See_Comment H [Automated messa ge] The system which generated this result transmitted reference range: 26 - 36 Seconds. The reference range was not used to interpret this result as normal/abnormal. Lab Interpretation (test code = 70411-1) [facility]normal [facility] 01:44:11* Test Item Value Reference Range Interpretation Comme nts Fibrinogen (test code = 7026942297) 172 mg/dL 167-453 Lab Interpretation (test cod e = 02663-1) Normal [facility] / [id number] 01:44:11* Test Item Value Reference Range Interpretation Comme nts PROTIME PATIENT (test code = 5964-2) 17.1 See_Comment H [Automated messa ge] The system which generated this result transmitted reference range: 10.1 - 12.6 Seconds. The reference range was not used to interpret this result as normal/abnormal. INR (test code = 6301-6) 1.5 Normal INR <1.1; Warfarin Therapeutic range 2.0 to 3.0 or 2.5 to 3.5, depending upon the indications. Lab Interpretation (test code = 71479-1) [facility]normal [facility] [id number] 01:44:11* Test Item Value Reference Range Interpretation Comme nts APTT Patient (test code = 3173-2) 45 See_Comment H [Automated messa ge] The system which generated this result transmitted reference range: 26 - 36 Seconds. The reference range was not used to interpret this result as normal/abnormal. Lab Interpretation (test code = 89894-7) [facility]normal [facility] 01:44:11* Test Item Value Reference Range Interpretation Comme nts Fibrinogen (test code = 0203443633) 172 mg/dL 167-453 Lab Interpretation (test cod e = 71018-4) Normal [facility] / [id number] 01:44:11* Test Item Value Reference Range Interpretation Comme nts PROTIME PATIENT (test code = 5964-2) 17.1 See_Comment H [Automated messa ge] The system which generated this result transmitted reference range: 10.1 - 12.6 Seconds. The reference range was not used to interpret this result as normal/abnormal. INR (test code = 6301-6) 1.5 Normal INR <1.1; Warfarin Therapeutic range 2.0 to 3.0 or 2.5 to 3.5, depending upon the indications. Lab Interpretation (test code = 79494-6) [facility]normal [facility] [id number] 01:44:11* Test Item Value Reference Range Interpretation Comme [facility] APTT Patient (test code = 3173-2) 45 See_Comment H [Automated messa ge] The system which generated this result transmitted reference range: 26 - 36 Seconds. The reference range was not used to interpret this result as normal/abnormal. Lab Interpretation (test code = 81203-6) [facility]normal [facility] 01:44:11* Test Item Value Reference Range Interpretation Comme [facility] Fibrinogen (test code = 5840121689) 172 mg/dL 167-453 Lab Interpretation (test cod e = 13193-2) Normal [facility] + Lactic Sqgz8038-84-77 01:35:57* Test Item Value Reference Range Interpretation Comme [facility] PH (test code = 2) 7.28 7.35-7.45 L PCO2 (test code = 2154725012) 40 See_Comment [Automated messa ge] The system which generated this result transmitted reference range: 35 - 45 mmHg. The reference range was not used to interpret this result as normal/abnormal. PO2 (test code = 3392778746) 50 See_Comment L [Automated messa ge] The system which generated this result transmitted reference range: 80 - 100 mmHg. The reference range was not used to interpret this result as normal/abnormal. HCO3 (test code = 6021291589) 19 See_Comment L [Automated messa ge] The system which generated this result transmitted reference range: 22 - 26 mEq/L. The reference range was not used to interpret this result as normal/abnormal. BE (test code = 5891149723) -7.7 See_Comment L [Automated messa ge] The system which generated this result transmitted reference range: -3.0 - 3.0 mEq/L. The reference range was not used to interpret this result as normal/abnormal. THB (test code = [id number]) 10.0 g/dL 13.5-18.0 L %O2HB (test code = 0233490346) 84.6 % 94.0-99.0 L %COHB ART (test code = 1019832773) 0.2 % 0.0-1.5 %METHB ART (test code = 3241191186) 0.1 % 0.4-1.5 L VOL%O2 ART (test code = 2995106475) 11.9 % 15.0-23.0 L NA (test code = 9049422666) 134 mmol/L 135-145 L K+ (test code = 1244880818) 3.8 mmol/L 3.5-5.0 AC CA IONZ (test code = 9750541594) 4.10 mg/dL 4.50-5.30 L GLUCOSE (test code = 0945037155) 172 mg/dL 70-110 H LACTIC ACID (test code = 1574702559) 4.08 mmol/L 0.50-2.20 H Lab Interpretation (test code = 46917-9) [facility] [id number] 01:35:57* Test Item Value Reference Range Interpretation Comme nts PH (test code = 2) 7.28 7.35-7.45 L PCO2 (test code = 1420553616) 40 See_Comment [Automated messa ge] The system which generated this result transmitted reference range: 35 - 45 mmHg. The reference range was not used to interpret this result as normal/abnormal. PO2 (test code = 2622783344) 50 See_Comment L [Automated messa ge] The system which generated this result transmitted reference range: 80 - 100 mmHg. The reference range was not used to interpret this result as normal/abnormal. HCO3 (test code = 4604852103) 19 See_Comment L [Automated messa ge] The system which generated this result transmitted reference range: 22 - 26 mEq/L. The reference range was not used to interpret this result as normal/abnormal. BE (test code = 7676568677) -7.7 See_Comment L [Automated messa ge] The system which generated this result transmitted reference range: -3.0 - 3.0 mEq/L. The reference range was not used to interpret this result as normal/abnormal. THB (test code = 7519763954) 10.0 g/dL 13.5-18.0 L %O2HB (test code = 1733080751) 84.6 % 94.0-99.0 L %COHB ART (test code = 4821879051) 0.2 % 0.0-1.5 %METHB ART (test code = 6384766583) 0.1 % 0.4-1.5 L VOL%O2 ART (test code = 3178551745) 11.9 % 15.0-23.0 L NA (test code = 6227899809) 134 mmol/L 135-145 L K+ (test code = 5665435652) 3.8 mmol/L 3.5-5.0 AC CA IONZ (test code = 4448189136) 4.10 mg/dL 4.50-5.30 L GLUCOSE (test code = 2802399413) 172 mg/dL 70-110 H LACTIC ACID (test code = 7050816771) 4.08 mmol/L 0.50-2.20 H Lab Interpretation (test code = 63878-9) [facility] Lactic [id number] 01:35:57* Test Item Value Reference Range Interpretation Comme nts PH (test code = 2) 7.28 7.35-7.45 L PCO2 (test code = 7850043518) 40 See_Comment [Automated messa ge] The system which generated this result transmitted reference range: 35 - 45 mmHg. The reference range was not used to interpret this result as normal/abnormal. PO2 (test code = 8100775733) 50 See_Comment L [Automated messa ge] The system which generated this result transmitted reference range: 80 - 100 mmHg. The reference range was not used to interpret this result as normal/abnormal. HCO3 (test code = 0852197920) 19 See_Comment L [Automated messa ge] The system which generated this result transmitted reference range: 22 - 26 mEq/L. The reference range was not used to interpret this result as normal/abnormal. BE (test code = 2236397994) -7.7 See_Comment L [Automated messa ge] The system which generated this result transmitted reference range: -3.0 - 3.0 mEq/L. The reference range was not used to interpret this result as normal/abnormal. THB (test code = 1721773048) 10.0 g/dL 13.5-18.0 L %O2HB (test code = 5774025049) 84.6 % 94.0-99.0 L %COHB ART (test code = 8923038026) 0.2 % 0.0-1.5 %METHB ART (test code = 4017831134) 0.1 % 0.4-1.5 L VOL%O2 ART (test code = 7929344494) 11.9 % 15.0-23.0 L NA (test code = 1909026007) 134 mmol/L 135-145 L K+ (test code = 9525189585) 3.8 mmol/L 3.5-5.0 AC CA IONZ (test code = 5706567010) 4.10 mg/dL 4.50-5.30 L GLUCOSE (test code = 5781055709) 172 mg/dL 70-110 H LACTIC ACID (test code = 2487562961) 4.08 mmol/L 0.50-2.20 H Lab Interpretation (test code = 06493-1) Abnormal [facility] WITH [id number] 01:30:03* Test Item Value Reference Range Interpretation Comme nts WBC (test code = 6690-2) 15.81 See_Comment H [Automated message] The system which generated this result transmitted reference range: 4.20 - 10.70 10*3/?L. The reference range was not used to interpret this result as normal/abnormal. RBC (test code = 789-8) 3.13 See_Comment L [Automated message] The system which generated this result transmitted reference range: 4.26 - 5.52 10*6/?L. The reference range was not used to interpret this result as normal/abnormal. HGB (test code = 718-7) 9.0 g/dL 12.2-16.4 L HCT (test code = 4544-3) 27.2 % 38.4-49.3 L MCV (test code = 787-2) 86.9 fL 81.7-95.6 MCH (test code = 785-6) 28.8 pg 26.1-32.7 MCHC (test code = 786-4) 33.1 g/dL 31.2-35.0 RDW-SD (test code = 98163-1) 43.9 fL 38.5-51.6 RDW-CV (test code = 788-0) 14.1 % 12.1-15.4 PLT (test code = 777-3) 109 See_Comment L [Automated message] The system which generated this result transmitted reference range: 150 - 328 10*3/?L. The reference range was not used to interpret this result as normal/abnormal. MPV (test code = 64081-7) 10.3 fL 9.8-13.0 NRBC/100 WBC (test code = 9002077681) 0.0 See_Comment [Automated message] The system which generated this result transmitted reference range: 0.0 - 10.0 /100 WBCs. The reference range was not used to interpret this result as normal/abnormal. NRBC x10^3 (test code = 9894010034) See_Comment [Automated message] The system which generated this result transmitted reference range: 10*3/?L. The reference range was not used to interpret this result as normal/abnormal. GRAN MAT (NEUT) % (test code = 770-8) 82.1 % IMM GRAN % (test code = 5309815606) 1.00 % LYMPH % (test code = 736-9) 8.0 % MONO % (test code = 5905-5) 8.7 % EOS % (test code = 713-8) 0.1 % BASO % (test code = 706-2) 0.1 % GRAN MAT x10^3(ANC) (test code = 3065560705) 12.97 10*3/uL 1.99-6.95 H IMM GRAN x10^3 (test code = 3313193967) 0.16 10*3/uL 0.00-0.06 H LYMPH x10^3 (test code = 731-0) 1.27 10*3/uL 1.09-3.23 MONO x10^3 (test code = 742-7) 1.38 10*3/uL 0.36-1.02 H EOS x10^3 (test code = 711-2) 0.06-0.53 L BASO x10^3 (test code = 704-7) 0.01-0.09 Lab Interpretation (test code = 17611-8) Abnormal [facility] WITH [id number] 01:30:03* Test Item Value Reference Range Interpretation Comme nts WBC (test code = 6690-2) 15.81 See_Comment H [Automated message] The system which generated this result transmitted reference range: 4.20 - 10.70 10*3/?L. The reference range was not used to interpret this result as normal/abnormal. RBC (test code = 789-8) 3.13 See_Comment L [Automated message] The system which generated this result transmitted reference range: 4.26 - 5.52 10*6/?L. The reference range was not used to interpret this result as normal/abnormal. HGB (test code = 718-7) 9.0 g/dL 12.2-16.4 L HCT (test code = 4544-3) 27.2 % 38.4-49.3 L MCV (test code = 787-2) 86.9 fL 81.7-95.6 MCH (test code = 785-6) 28.8 pg 26.1-32.7 MCHC (test code = 786-4) 33.1 g/dL 31.2-35.0 RDW-SD (test code = 64500-2) 43.9 fL 38.5-51.6 RDW-CV (test code = 788-0) 14.1 % 12.1-15.4 PLT (test code = 777-3) 109 See_Comment L [Automated message] The system which generated this result transmitted reference range: 150 - 328 10*3/?L. The reference range was not used to interpret this result as normal/abnormal. MPV (test code = 09314-7) 10.3 fL 9.8-13.0 NRBC/100 WBC (test code = 5882791139) 0.0 See_Comment [Automated message] The system which generated this result transmitted reference range: 0.0 - 10.0 /100 WBCs. The reference range was not used to interpret this result as normal/abnormal. NRBC x10^3 (test code = 5374817118) See_Comment [Automated message] The system which generated this result transmitted reference range: 10*3/?L. The reference range was not used to interpret this result as normal/abnormal. GRAN MAT (NEUT) % (test code = 770-8) 82.1 % IMM GRAN % (test code = 0946834482) 1.00 % LYMPH % (test code = 736-9) 8.0 % MONO % (test code = 5905-5) 8.7 % EOS % (test code = 713-8) 0.1 % BASO % (test code = 706-2) 0.1 % GRAN MAT x10^3(ANC) (test code = 6499234855) 12.97 10*3/uL 1.99-6.95 H IMM GRAN x10^3 (test code = 3388281597) 0.16 10*3/uL 0.00-0.06 H LYMPH x10^3 (test code = 731-0) 1.27 10*3/uL 1.09-3.23 MONO x10^3 (test code = 742-7) 1.38 10*3/uL 0.36-1.02 H EOS x10^3 (test code = 711-2) 0.06-0.53 L BASO x10^3 (test code = 704-7) 0.01-0.09 Lab Interpretation (test code = 06897-8) Abnormal [facility] WITH [id number] 01:30:03* Test Item Value Reference Range Interpretation Comme nts WBC (test code = 6690-2) 15.81 See_Comment H [Automated message] The system which generated this result transmitted reference range: 4.20 - 10.70 10*3/?L. The reference range was not used to interpret this result as normal/abnormal. RBC (test code = 789-8) 3.13 See_Comment L [Automated message] The system which generated this result transmitted reference range: 4.26 - 5.52 10*6/?L. The reference range was not used to interpret this result as normal/abnormal. HGB (test code = 718-7) 9.0 g/dL 12.2-16.4 L HCT (test code = 4544-3) 27.2 % 38.4-49.3 L MCV (test code = 787-2) 86.9 fL 81.7-95.6 MCH (test code = 785-6) 28.8 pg 26.1-32.7 MCHC (test code = 786-4) 33.1 g/dL 31.2-35.0 RDW-SD (test code = 22312-5) 43.9 fL 38.5-51.6 RDW-CV (test code = 788-0) 14.1 % 12.1-15.4 PLT (test code = 777-3) 109 See_Comment L [Automated message] The system which generated this result transmitted reference range: 150 - 328 10*3/?L. The reference range was not used to interpret this result as normal/abnormal. MPV (test code = 09044-3) 10.3 fL 9.8-13.0 NRBC/100 WBC (test code = 8730220867) 0.0 See_Comment [Automated message] The system which generated this result transmitted reference range: 0.0 - 10.0 /100 WBCs. The reference range was not used to interpret this result as normal/abnormal. NRBC x10^3 (test code = 3073768654) See_Comment [Automated message] The system which generated this result transmitted reference range: 10*3/?L. The reference range was not used to interpret this result as normal/abnormal. GRAN MAT (NEUT) % (test code = 770-8) 82.1 % IMM GRAN % (test code = 6306257996) 1.00 % LYMPH % (test code = 736-9) 8.0 % MONO % (test code = 5905-5) 8.7 % EOS % (test code = 713-8) 0.1 % BASO % (test code = 706-2) 0.1 % GRAN MAT x10^3(ANC) (test code = 0081495339) 12.97 10*3/uL 1.99-6.95 H IMM GRAN x10^3 (test code = 3754222860) 0.16 10*3/uL 0.00-0.06 H LYMPH x10^3 (test code = 731-0) 1.27 10*3/uL 1.09-3.23 MONO x10^3 (test code = 742-7) 1.38 10*3/uL 0.36-1.02 H EOS x10^3 (test code = 711-2) 0.06-0.53 L BASO x10^3 (test code = 704-7) 0.01-0.09 Lab Interpretation (test code = 74180-4) Abnormal [facility] WITHOUT [id number] 01:27:05* Test Item Value Reference Range Interpretation Comme nts WBC (test code = 6690-2) 15.05 See_Comment H [Automated message] The system which generated this result transmitted reference range: 4.20 - 10.70 10*3/?L. The reference range was not used to interpret this result as normal/abnormal. RBC (test code = 789-8) 3.05 See_Comment L [Automated message] The system which generated this result transmitted reference range: 4.26 - 5.52 10*6/?L. The reference range was not used to interpret this result as normal/abnormal. HGB (test code = 718-7) 8.5 g/dL 12.2-16.4 L HCT (test code = 4544-3) 26.4 % 38.4-49.3 L MCH (test code = 785-6) 27.9 pg 26.1-32.7 MCV (test code = 787-2) 86.6 fL 81.7-95.6 MCHC (test code = 786-4) 32.2 g/dL 31.2-35.0 PLT (test code = 777-3) 119 See_Comment L [Automated message] The system which generated this result transmitted reference range: 150 - 328 10*3/?L. The reference range was not used to interpret this result as normal/abnormal. MPV (test code = 42663-4) 10.4 fL 9.8-13.0 RDW-CV (test code = 788-0) 14.0 % 12.1-15.4 RDW-SD (test code = 82135-0) 44.1 fL 38.5-51.6 NRBC x10^3 (test code = 1595021111) See_Comment [Automated messa ge] The system which generated this result transmitted reference range: 10*3/?L. The reference range was not used to interpret this result as normal/abnormal. NRBC/100 WBC (test code = 8002031727) 0.0 See_Comment [Automated messa ge] The system which generated this result transmitted reference range: 0.0 - 10.0 /100 WBCs. The reference range was not used to interpret this result as normal/abnormal. IPF % (test code = 2295123763) Lab Interpretation (test code = 83942-3) Abnormal [facility] WITHOUT [id number] 01:27:05* Test Item Value Reference Range Interpretation Comme nts WBC (test code = 6690-2) 15.05 See_Comment H [Automated message] The system which generated this result transmitted reference range: 4.20 - 10.70 10*3/?L. The reference range was not used to interpret this result as normal/abnormal. RBC (test code = 789-8) 3.05 See_Comment L [Automated message] The system which generated this result transmitted reference range: 4.26 - 5.52 10*6/?L. The reference range was not used to interpret this result as normal/abnormal. HGB (test code = 718-7) 8.5 g/dL 12.2-16.4 L HCT (test code = 4544-3) 26.4 % 38.4-49.3 L MCH (test code = 785-6) 27.9 pg 26.1-32.7 MCV (test code = 787-2) 86.6 fL 81.7-95.6 MCHC (test code = 786-4) 32.2 g/dL 31.2-35.0 PLT (test code = 777-3) 119 See_Comment L [Automated message] The system which generated this result transmitted reference range: 150 - 328 10*3/?L. The reference range was not used to interpret this result as normal/abnormal. MPV (test code = 71115-6) 10.4 fL 9.8-13.0 RDW-CV (test code = 788-0) 14.0 % 12.1-15.4 RDW-SD (test code = 53388-0) 44.1 fL 38.5-51.6 NRBC x10^3 (test code = 7223975048) See_Comment [Automated messa ge] The system which generated this result transmitted reference range: 10*3/?L. The reference range was not used to interpret this result as normal/abnormal. NRBC/100 WBC (test code = 8470156081) 0.0 See_Comment [Automated messa ge] The system which generated this result transmitted reference range: 0.0 - 10.0 /100 WBCs. The reference range was not used to interpret this result as normal/abnormal. IPF % (test code = 2312869894) Lab Interpretation (test code = 21386-5) Abnormal [facility] WITHOUT [id number] 01:27:05* Test Item Value Reference Range Interpretation Comme nts WBC (test code = 6690-2) 15.05 See_Comment H [Automated message] The system which generated this result transmitted reference range: 4.20 - 10.70 10*3/?L. The reference range was not used to interpret this result as normal/abnormal. RBC (test code = 789-8) 3.05 See_Comment L [Automated message] The system which generated this result transmitted reference range: 4.26 - 5.52 10*6/?L. The reference range was not used to interpret this result as normal/abnormal. HGB (test code = 718-7) 8.5 g/dL 12.2-16.4 L HCT (test code = 4544-3) 26.4 % 38.4-49.3 L MCH (test code = 785-6) 27.9 pg 26.1-32.7 MCV (test code = 787-2) 86.6 fL 81.7-95.6 MCHC (test code = 786-4) 32.2 g/dL 31.2-35.0 PLT (test code = 777-3) 119 See_Comment L [Automated message] The system which generated this result transmitted reference range: 150 - 328 10*3/?L. The reference range was not used to interpret this result as normal/abnormal. MPV (test code = 74852-7) 10.4 fL 9.8-13.0 RDW-CV (test code = 788-0) 14.0 % 12.1-15.4 RDW-SD (test code = 63321-7) 44.1 fL 38.5-51.6 NRBC x10^3 (test code = 2085832652) See_Comment [Automated messa ge] The system which generated this result transmitted reference range: 10*3/?L. The reference range was not used to interpret this result as normal/abnormal. NRBC/100 WBC (test code = 1265307518) 0.0 See_Comment [Automated messa ge] The system which generated this result transmitted reference range: 0.0 - 10.0 /100 WBCs. The reference range was not used to interpret this result as normal/abnormal. IPF % (test code = 6744510018) Lab Interpretation (test code = 40451-0) Abnormal [facility] Packed RBC (in units), 2 Units 2023-02-14 01:14:31* Test Item Value Reference Range Interpretation Comme nts Cross Match Result (test code = 4409) Compatible ISBT Blood Type Code (test code = 664766) 5100 Unit Blood Type (test code = 4410) O Pos Unit Number (test code = 4411) [id number] Blood Expiration Date & Time (test code = 862714) 518421922525 Status Information (test code = 4412) Issued Product Identification (test code = 4413) Red Blood Cells Product Code (test code = 4414) [id number] Performed at [facility] Laboratory Services [facility] Blood [address] [address]Yemk Free: [phone] No. [id number] [facility] Packed RBC (in units), 2 Units 2023-02-14 01:14:31* Test Item Value Reference Range Interpretation Comme nts Cross Match Result (test code = 4409) Compatible ISBT Blood Type Code (test code = 352079) 5100 Unit Blood Type (test code = 4410) O Pos Unit Number (test code = 4411) [id number] Blood Expiration Date & Time (test code = 049392) 521999659146 Status Information (test code = 4412) Issued Product Identification (test code = 4413) Red Blood Cells Product Code (test code = 4414) [id number] Performed at [facility] Blood [address] [address]Latf Free: [phone] No. [id number] [facility] Packed RBC (in units), 2 Units 2023-02-14 01:14:31* Test Item Value Reference Range Interpretation Comme nts Cross Match Result (test code = 4409) Compatible ISBT Blood Type Code (test code = 146661) 5100 Unit Blood Type (test code = 4410) O Pos Unit Number (test code = 4411) [id number] Blood Expiration Date & Time (test code = 213651) 378119580614 Status Information (test code = 4412) Issued Product Identification (test code = 4413) Red Blood Cells Product Code (test code = 4414) [id number] Performed at [facility] Blood [place] [id number] Free: [phone] No. [id number] [facility] [id number] 00:56:03* Test Item Value Reference Range Interpretation Comme nts PH (test code = 2) 7.30 7.35-7.45 L PCO2 (test code = 7758673904) 46 See_Comment H [Automated messa ge] The system which generated this result transmitted reference range: 35 - 45 mmHg. The reference range was not used to interpret this result as normal/abnormal. PO2 (test code = 4808262966) 112 See_Comment H [Automated messa ge] The system which generated this result transmitted reference range: 80 - 100 mmHg. The reference range was not used to interpret this result as normal/abnormal. BE (test code = 8210901101) -4.0 See_Comment L [Automated messa ge] The system which generated this result transmitted reference range: -3.0 - 3.0 mEq/L. The reference range was not used to interpret this result as normal/abnormal. HCO3 (test code = 1295939240) 22 See_Comment [Automated messa ge] The system which generated this result transmitted reference range: 22 - 26 mEq/L. The reference range was not used to interpret this result as normal/abnormal. %O2HB (test code = 4801856424) 98.0 % 95.0-98.0 NA (test code = 3884304034) 140 mmol/L 135-145 K+ (test code = 3519963070) 3.3 mmol/L 3.5-5.0 L AC CA IONZ (test code = 5580997496) 4.00 mg/dL 4.50-5.30 L GLUCOSE (test code = 1082817715) 180 mg/dL 70-110 H AC Hematocrit (test code = 1767961517) 20 See_Comment LL [Automated me ssage] The system which generated this result transmitted reference range: 40 - 54 VOL %. The reference range was not used to interpret this result as normal/abnormal. THB (test code = 1433173341) 6.8 g/dL 13.5-18.0 LL AC TC02 (test code = 7538204278) 24 mmol/L See_Comment [Automated messa ge] The system which generated this result transmitted reference range: 23-27 mmol/L. The reference range was not used to interpret this result as normal/abnormal. Lab Interpretation (test code = 83458-5) Abnormal [facility] CARE [id number] 00:56:03* Test Item Value Reference Range Interpretation Comme nts PH (test code = 2) 7.30 7.35-7.45 L PCO2 (test code = 1873841897) 46 See_Comment H [Automated messa ge] The system which generated this result transmitted reference range: 35 - 45 mmHg. The reference range was not used to interpret this result as normal/abnormal. PO2 (test code = 9037471316) 112 See_Comment H [Automated messa ge] The system which generated this result transmitted reference range: 80 - 100 mmHg. The reference range was not used to interpret this result as normal/abnormal. BE (test code = 9292172069) -4.0 See_Comment L [Automated messa ge] The system which generated this result transmitted reference range: -3.0 - 3.0 mEq/L. The reference range was not used to interpret this result as normal/abnormal. HCO3 (test code = 8346558748) 22 See_Comment [Automated messa ge] The system which generated this result transmitted reference range: 22 - 26 mEq/L. The reference range was not used to interpret this result as normal/abnormal. %O2HB (test code = 0904972695) 98.0 % 95.0-98.0 NA (test code = 7310182855) 140 mmol/L 135-145 K+ (test code = 3274580135) 3.3 mmol/L 3.5-5.0 L AC CA IONZ (test code = 2346790092) 4.00 mg/dL 4.50-5.30 L GLUCOSE (test code = 6350313495) 180 mg/dL 70-110 H AC Hematocrit (test code = 7156227728) 20 See_Comment LL [Automated me ssage] The system which generated this result transmitted reference range: 40 - 54 VOL %. The reference range was not used to interpret this result as normal/abnormal. THB (test code = 5157488204) 6.8 g/dL 13.5-18.0 LL AC TC02 (test code = 1376497975) 24 mmol/L See_Comment [Automated messa ge] The system which generated this result transmitted reference range: 23-27 mmol/L. The reference range was not used to interpret this result as normal/abnormal. Lab Interpretation (test code = 69982-3) Abnormal [facility] AC[facility] [id number] 00:56:03* Test Item Value Reference Range Interpretation Comme nts PH (test code = 2) 7.30 7.35-7.45 L PCO2 (test code = 4792091220) 46 See_Comment H [Automated messa ge] The system which generated this result transmitted reference range: 35 - 45 mmHg. The reference range was not used to interpret this result as normal/abnormal. PO2 (test code = 1034832712) 112 See_Comment H [Automated messa ge] The system which generated this result transmitted reference range: 80 - 100 mmHg. The reference range was not used to interpret this result as normal/abnormal. BE (test code = 5852395505) -4.0 See_Comment L [Automated messa ge] The system which generated this result transmitted reference range: -3.0 - 3.0 mEq/L. The reference range was not used to interpret this result as normal/abnormal. HCO3 (test code = 4576873711) 22 See_Comment [Automated messa ge] The system which generated this result transmitted reference range: 22 - 26 mEq/L. The reference range was not used to interpret this result as normal/abnormal. %O2HB (test code = 2301887511) 98.0 % 95.0-98.0 NA (test code = 4800421242) 140 mmol/L 135-145 K+ (test code = 5731363468) 3.3 mmol/L 3.5-5.0 L AC CA IONZ (test code = 1593697752) 4.00 mg/dL 4.50-5.30 L GLUCOSE (test code = 3292824151) 180 mg/dL 70-110 H AC Hematocrit (test code = 6132575389) 20 See_Comment LL [Automated me ssage] The system which generated this result transmitted reference range: 40 - 54 VOL %. The reference range was not used to interpret this result as normal/abnormal. THB (test code = 4109954571) 6.8 g/dL 13.5-18.0 LL AC TC02 (test code = 4252489208) 24 mmol/L See_Comment [Automated messa ge] The system which generated this result transmitted reference range: 23-27 mmol/L. The reference range was not used to interpret this result as normal/abnormal. Lab Interpretation (test code = 86044-3) Abnormal [facility] [id number] 00:56:03* Test Item Value Reference Range Interpretation Comme nts PH (test code = 2) 7.30 7.35-7.45 L PCO2 (test code = 7588961069) 46 See_Comment H [Automated messa ge] The system which generated this result transmitted reference range: 35 - 45 mmHg. The reference range was not used to interpret this result as normal/abnormal. PO2 (test code = 4908331814) 112 See_Comment H [Automated messa ge] The system which generated this result transmitted reference range: 80 - 100 mmHg. The reference range was not used to interpret this result as normal/abnormal. BE (test code = 0835073157) -4.0 See_Comment L [Automated messa ge] The system which generated this result transmitted reference range: -3.0 - 3.0 mEq/L. The reference range was not used to interpret this result as normal/abnormal. HCO3 (test code = 0171381783) 22 See_Comment [Automated messa ge] The system which generated this result transmitted reference range: 22 - 26 mEq/L. The reference range was not used to interpret this result as normal/abnormal. %O2HB (test code = 0714661888) 98.0 % 95.0-98.0 NA (test code = 8277470537) 140 mmol/L 135-145 K+ (test code = 2088711024) 3.3 mmol/L 3.5-5.0 L AC CA IONZ (test code = 5426134714) 4.00 mg/dL 4.50-5.30 L GLUCOSE (test code = 8905495990) 180 mg/dL 70-110 H AC Hematocrit (test code = 4357992872) 20 See_Comment LL [Automated me ssage] The system which generated this result transmitted reference range: 40 - 54 VOL %. The reference range was not used to interpret this result as normal/abnormal. THB (test code = 6158190013) 6.8 g/dL 13.5-18.0 LL AC TC02 (test code = 0815787129) 24 mmol/L See_Comment [Automated messa ge] The system which generated this result transmitted reference range: 23-27 mmol/L. The reference range was not used to interpret this result as normal/abnormal. Lab Interpretation (test code = 46862-4) Abnormal [facility] ACUTE CARE [id number] 00:56:03* Test Item Value Reference Range Interpretation Comme nts PH (test code = 2) 7.30 7.35-7.45 L PCO2 (test code = 8010868289) 46 See_Comment H [Automated messa ge] The system which generated this result transmitted reference range: 35 - 45 mmHg. The reference range was not used to interpret this result as normal/abnormal. PO2 (test code = 2954933375) 112 See_Comment H [Automated messa ge] The system which generated this result transmitted reference range: 80 - 100 mmHg. The reference range was not used to interpret this result as normal/abnormal. BE (test code = 0571814439) -4.0 See_Comment L [Automated messa ge] The system which generated this result transmitted reference range: -3.0 - 3.0 mEq/L. The reference range was not used to interpret this result as normal/abnormal. HCO3 (test code = 5213412631) 22 See_Comment [Automated messa ge] The system which generated this result transmitted reference range: 22 - 26 mEq/L. The reference range was not used to interpret this result as normal/abnormal. %O2HB (test code = 5072490883) 98.0 % 95.0-98.0 NA (test code = 9849715506) 140 mmol/L 135-145 K+ (test code = 3342207056) 3.3 mmol/L 3.5-5.0 L AC CA IONZ (test code = 8072767647) 4.00 mg/dL 4.50-5.30 L GLUCOSE (test code = 8910632859) 180 mg/dL 70-110 H AC Hematocrit (test code = 2619691858) 20 See_Comment LL [Automated me ssage] The system which generated this result transmitted reference range: 40 - 54 VOL %. The reference range was not used to interpret this result as normal/abnormal. THB (test code = 9316541354) 6.8 g/dL 13.5-18.0 LL AC TC02 (test code = 1928230334) 24 mmol/L See_Comment [Automated messa ge] The system which generated this result transmitted reference range: 23-27 mmol/L. The reference range was not used to interpret this result as normal/abnormal. Lab Interpretation (test code = 46507-2) Abnormal [facility] ACUTE CARE [id number] 00:09:41* Test Item Value Reference Range Interpretation Comme nts PH (test code = 2) 7.28 7.35-7.45 L PCO2 (test code = 6777666310) 48 See_Comment H [Automated messa ge] The system which generated this result transmitted reference range: 35 - 45 mmHg. The reference range was not used to interpret this result as normal/abnormal. PO2 (test code = 0820677954) 171 See_Comment H [Automated messa ge] The system which generated this result transmitted reference range: 80 - 100 mmHg. The reference range was not used to interpret this result as normal/abnormal. BE (test code = 2514578918) -4.0 See_Comment L [Automated messa ge] The system which generated this result transmitted reference range: -3.0 - 3.0 mEq/L. The reference range was not used to interpret this result as normal/abnormal. HCO3 (test code = 5480224483) 23 See_Comment [Automated messa ge] The system which generated this result transmitted reference range: 22 - 26 mEq/L. The reference range was not used to interpret this result as normal/abnormal. %O2HB (test code = 2878578227) 99.0 % 95.0-98.0 H NA (test code = 1306055768) 139 mmol/L 135-145 K+ (test code = 5793531261) 3.0 mmol/L 3.5-5.0 L AC CA IONZ (test code = 4058370704) 4.30 mg/dL 4.50-5.30 L GLUCOSE (test code = 3222521732) 218 mg/dL 70-110 H AC Hematocrit (test code = 6487511211) 23 See_Comment LL [Automated me ssage] The system which generated this result transmitted reference range: 40 - 54 VOL %. The reference range was not used to interpret this result as normal/abnormal. THB (test code = 4900230424) 7.8 g/dL 13.5-18.0 LL AC TC02 (test code = 8495669333) 24 mmol/L See_Comment [Automated messa ge] The system which generated this result transmitted reference range: 23-27 mmol/L. The reference range was not used to interpret this result as normal/abnormal. Lab Interpretation (test code = 23666-2) Abnormal [facility] ACUTE CARE [id number] 00:09:41* Test Item Value Reference Range Interpretation Comme nts PH (test code = 2) 7.28 7.35-7.45 L PCO2 (test code = 8923853558) 48 See_Comment H [Automated messa ge] The system which generated this result transmitted reference range: 35 - 45 mmHg. The reference range was not used to interpret this result as normal/abnormal. PO2 (test code = 0612440783) 171 See_Comment H [Automated messa ge] The system which generated this result transmitted reference range: 80 - 100 mmHg. The reference range was not used to interpret this result as normal/abnormal. BE (test code = 9112699645) -4.0 See_Comment L [Automated messa ge] The system which generated this result transmitted reference range: -3.0 - 3.0 mEq/L. The reference range was not used to interpret this result as normal/abnormal. HCO3 (test code = 0305848363) 23 See_Comment [Automated messa ge] The system which generated this result transmitted reference range: 22 - 26 mEq/L. The reference range was not used to interpret this result as normal/abnormal. %O2HB (test code = 8728118025) 99.0 % 95.0-98.0 H NA (test code = 5514764118) 139 mmol/L 135-145 K+ (test code = 9974289979) 3.0 mmol/L 3.5-5.0 L AC CA IONZ (test code = 5022328280) 4.30 mg/dL 4.50-5.30 L GLUCOSE (test code = 5945930335) 218 mg/dL 70-110 H AC Hematocrit (test code = 3073950572) 23 See_Comment LL [Automated me ssage] The system which generated this result transmitted reference range: 40 - 54 VOL %. The reference range was not used to interpret this result as normal/abnormal. THB (test code = 4034047480) 7.8 g/dL 13.5-18.0 LL AC TC02 (test code = 4010008693) 24 mmol/L See_Comment [Automated messa ge] The system which generated this result transmitted reference range: 23-27 mmol/L. The reference range was not used to interpret this result as normal/abnormal. Lab Interpretation (test code = 57193-1) Abnormal [facility] ACUTE CARE [id number] 00:09:41* Test Item Value Reference Range Interpretation Comme nts PH (test code = 2) 7.28 7.35-7.45 L PCO2 (test code = 5430024852) 48 See_Comment H [Automated messa ge] The system which generated this result transmitted reference range: 35 - 45 mmHg. The reference range was not used to interpret this result as normal/abnormal. PO2 (test code = 1255349240) 171 See_Comment H [Automated messa ge] The system which generated this result transmitted reference range: 80 - 100 mmHg. The reference range was not used to interpret this result as normal/abnormal. BE (test code = 9455567361) -4.0 See_Comment L [Automated messa ge] The system which generated this result transmitted reference range: -3.0 - 3.0 mEq/L. The reference range was not used to interpret this result as normal/abnormal. HCO3 (test code = 1667677155) 23 See_Comment [Automated messa ge] The system which generated this result transmitted reference range: 22 - 26 mEq/L. The reference range was not used to interpret this result as normal/abnormal. %O2HB (test code = 7015758116) 99.0 % 95.0-98.0 H NA (test code = 8377166638) 139 mmol/L 135-145 K+ (test code = 3860035728) 3.0 mmol/L 3.5-5.0 L AC CA IONZ (test code = 2788520327) 4.30 mg/dL 4.50-5.30 L GLUCOSE (test code = 3467393716) 218 mg/dL 70-110 H AC Hematocrit (test code = 4969088143) 23 See_Comment LL [Automated me ssage] The system which generated this result transmitted reference range: 40 - 54 VOL %. The reference range was not used to interpret this result as normal/abnormal. THB (test code = 6154521309) 7.8 g/dL 13.5-18.0 LL AC TC02 (test code = 8498498920) 24 mmol/L See_Comment [Automated messa ge] The system which generated this result transmitted reference range: 23-27 mmol/L. The reference range was not used to interpret this result as normal/abnormal. Lab Interpretation (test code = 42683-6) Abnormal [facility] ACUTE CARE [id number] 23:09:57* Test Item Value Reference Range Interpretation Comme nts PH (test code = 2) 7.43 7.35-7.45 PCO2 (test code = 7188666248) 35 See_Comment [Automated messa ge] The system which generated this result transmitted reference range: 35 - 45 mmHg. The reference range was not used to interpret this result as normal/abnormal. PO2 (test code = 2127525092) 220 See_Comment H [Automated messa ge] The system which generated this result transmitted reference range: 80 - 100 mmHg. The reference range was not used to interpret this result as normal/abnormal. BE (test code = 4467021006) -2.0 See_Comment [Automated messa ge] The system which generated this result transmitted reference range: -3.0 - 3.0 mEq/L. The reference range was not used to interpret this result as normal/abnormal. HCO3 (test code = 5052870083) 23 See_Comment [Automated messa ge] The system which generated this result transmitted reference range: 22 - 26 mEq/L. The reference range was not used to interpret this result as normal/abnormal. %O2HB (test code = 8979889869) 100.0 % 95.0-98.0 H NA (test code = 5511631306) 136 mmol/L 135-145 K+ (test code = 3339919352) 3.8 mmol/L 3.5-5.0 AC CA IONZ (test code = 2567875243) 3.70 mg/dL 4.50-5.30 L GLUCOSE (test code = 6168873120) 282 mg/dL 70-110 H AC Hematocrit (test code = 1762357454) 26 See_Comment L [Automated me ssage] The system which generated this result transmitted reference range: 40 - 54 VOL %. The reference range was not used to interpret this result as normal/abnormal. THB (test code = 8973695982) 8.8 g/dL 13.5-18.0 L AC TC02 (test code = 6512328982) 24 mmol/L See_Comment [Automated messa ge] The system which generated this result transmitted reference range: 23-27 mmol/L. The reference range was not used to interpret this result as normal/abnormal. Lab Interpretation (test code = 11653-8) Abnormal [facility] ACUTE CARE [id number] 23:09:57* Test Item Value Reference Range Interpretation Comme nts PH (test code = 2) 7.43 7.35-7.45 PCO2 (test code = 3181819078) 35 See_Comment [Automated messa ge] The system which generated this result transmitted reference range: 35 - 45 mmHg. The reference range was not used to interpret this result as normal/abnormal. PO2 (test code = 5414788403) 220 See_Comment H [Automated messa ge] The system which generated this result transmitted reference range: 80 - 100 mmHg. The reference range was not used to interpret this result as normal/abnormal. BE (test code = 0456697034) -2.0 See_Comment [Automated messa ge] The system which generated this result transmitted reference range: -3.0 - 3.0 mEq/L. The reference range was not used to interpret this result as normal/abnormal. HCO3 (test code = 3407508291) 23 See_Comment [Automated messa ge] The system which generated this result transmitted reference range: 22 - 26 mEq/L. The reference range was not used to interpret this result as normal/abnormal. %O2HB (test code = 6222024461) 100.0 % 95.0-98.0 H NA (test code = 8244098660) 136 mmol/L 135-145 K+ (test code = 6123529889) 3.8 mmol/L 3.5-5.0 AC CA IONZ (test code = 0496070160) 3.70 mg/dL 4.50-5.30 L GLUCOSE (test code = 4232697850) 282 mg/dL 70-110 H AC Hematocrit (test code = 0352157617) 26 See_Comment L [Automated me ssage] The system which generated this result transmitted reference range: 40 - 54 VOL %. The reference range was not used to interpret this result as normal/abnormal. THB (test code = 2175468201) 8.8 g/dL 13.5-18.0 L AC TC02 (test code = 0469363552) 24 mmol/L See_Comment [Automated messa ge] The system which generated this result transmitted reference range: 23-27 mmol/L. The reference range was not used to interpret this result as normal/abnormal. Lab Interpretation (test code = 77700-4) Abnormal [facility] ACUTE CARE [id number] 23:09:57* Test Item Value Reference Range Interpretation Comme nts PH (test code = 2) 7.43 7.35-7.45 PCO2 (test code = 8252934791) 35 See_Comment [Automated messa ge] The system which generated this result transmitted reference range: 35 - 45 mmHg. The reference range was not used to interpret this result as normal/abnormal. PO2 (test code = 5036381706) 220 See_Comment H [Automated messa ge] The system which generated this result transmitted reference range: 80 - 100 mmHg. The reference range was not used to interpret this result as normal/abnormal. BE (test code = 4765712917) -2.0 See_Comment [Automated messa ge] The system which generated this result transmitted reference range: -3.0 - 3.0 mEq/L. The reference range was not used to interpret this result as normal/abnormal. HCO3 (test code = 1135842035) 23 See_Comment [Automated messa ge] The system which generated this result transmitted reference range: 22 - 26 mEq/L. The reference range was not used to interpret this result as normal/abnormal. %O2HB (test code = 9518414017) 100.0 % 95.0-98.0 H NA (test code = 7177886044) 136 mmol/L 135-145 K+ (test code = 3351360969) 3.8 mmol/L 3.5-5.0 AC CA IONZ (test code = 7587055495) 3.70 mg/dL 4.50-5.30 L GLUCOSE (test code = 3951019230) 282 mg/dL 70-110 H AC Hematocrit (test code = 8881348263) 26 See_Comment L [Automated me ssage] The system which generated this result transmitted reference range: 40 - 54 VOL %. The reference range was not used to interpret this result as normal/abnormal. THB (test code = 5419488387) 8.8 g/dL 13.5-18.0 L AC TC02 (test code = 5393078453) 24 mmol/L See_Comment [Automated messa ge] The system which generated this result transmitted reference range: 23-27 mmol/L. The reference range was not used to interpret this result as normal/abnormal. Lab Interpretation (test code = 14172-7) [facility]~ 2023-[facility]-13 22:48:46* Test Item Value Reference Range Interpretation Comme nts Unit Blood Type (test code = 4410) O Pos ISBT Blood Type Code (test code = 357873) 5100 Unit Number (test code = 4411) [id number] Blood Expiration Date & Time (test code = 418128) 085929424501 Status Information (test code = 4412) Issued Product Identification (test code = 4413) Platelets Product Code (test code = 4414) [id number] Performed at [facility] Blood [address] Free: [phone] No. [id number] [facility] Platelets (in units): 2 Units~ 2023-02-13 22:48:46* Test Item Value Reference Range Interpretation Comme [facility] Unit Blood Type (test code = 4410) O Pos ISBT Blood Type Code (test code = 544064) 5100 Unit Number (test code = 4411) [id number] Blood Expiration Date & Time (test code = 769685) 533010122091 Status Information (test code = 4412) Issued Product Identification (test code = 4413) Platelets Product Code (test code = 4414) [id number] Performed at [address] Free: [phone] No. [id number] [facility] Platelets (in units): 2 Units~ 2023-02-13 22:48:46* Test Item Value Reference Range Interpretation Comme [facility] Unit Blood Type (test code = 4410) O Pos ISBT Blood Type Code (test code = 420290) 5100 Unit Number (test code = 4411) [id number] Blood Expiration Date & Time (test code = 638242) [id number] Status Information (test code = 4412) Issued Product Identification (test code = 4413) Platelets Product Code (test code = 4414) [id number] Performed at [facility] Blood [address] Free: [phone] No. [id number] [facility] ACUTE CARE [id number] 22:40:42* Test Item Value Reference Range Interpretation Comme nts PH (test code = 2) 7.40 7.35-7.45 PCO2 (test code = 9313416921) 38 See_Comment [Automated messa ge] The system which generated this result transmitted reference range: 35 - 45 mmHg. The reference range was not used to interpret this result as normal/abnormal. PO2 (test code = 2271043936) 245 See_Comment H [Automated messa ge] The system which generated this result transmitted reference range: 80 - 100 mmHg. The reference range was not used to interpret this result as normal/abnormal. BE (test code = 1849501398) -1.0 See_Comment [Automated messa ge] The system which generated this result transmitted reference range: -3.0 - 3.0 mEq/L. The reference range was not used to interpret this result as normal/abnormal. HCO3 (test code = 0838231810) 24 See_Comment [Automated messa ge] The system which generated this result transmitted reference range: 22 - 26 mEq/L. The reference range was not used to interpret this result as normal/abnormal. %O2HB (test code = 8005568789) 100.0 % 95.0-98.0 H NA (test code = 9774317945) 135 mmol/L 135-145 K+ (test code = 8602595565) 3.9 mmol/L 3.5-5.0 AC CA IONZ (test code = 4671180252) 3.60 mg/dL 4.50-5.30 L GLUCOSE (test code = 6062948498) 316 mg/dL 70-110 H AC Hematocrit (test code = 6273145017) 24 See_Comment LL [Automated me ssage] The system which generated this result transmitted reference range: 40 - 54 VOL %. The reference range was not used to interpret this result as normal/abnormal. THB (test code = 4263903712) 8.2 g/dL 13.5-18.0 LL AC TC02 (test code = 9913505510) 25 mmol/L See_Comment [Automated messa ge] The system which generated this result transmitted reference range: 23-27 mmol/L. The reference range was not used to interpret this result as normal/abnormal. Lab Interpretation (test code = 93412-0) Abnormal [facility] ACUTE CARE [id number] 22:40:42* Test Item Value Reference Range Interpretation Comme nts PH (test code = 2) 7.40 7.35-7.45 PCO2 (test code = 4703186839) 38 See_Comment [Automated messa ge] The system which generated this result transmitted reference range: 35 - 45 mmHg. The reference range was not used to interpret this result as normal/abnormal. PO2 (test code = 3715483555) 245 See_Comment H [Automated messa ge] The system which generated this result transmitted reference range: 80 - 100 mmHg. The reference range was not used to interpret this result as normal/abnormal. BE (test code = 6775184559) -1.0 See_Comment [Automated messa ge] The system which generated this result transmitted reference range: -3.0 - 3.0 mEq/L. The reference range was not used to interpret this result as normal/abnormal. HCO3 (test code = 8286127506) 24 See_Comment [Automated messa ge] The system which generated this result transmitted reference range: 22 - 26 mEq/L. The reference range was not used to interpret this result as normal/abnormal. %O2HB (test code = 3376163988) 100.0 % 95.0-98.0 H NA (test code = 5288480314) 135 mmol/L 135-145 K+ (test code = 0151107586) 3.9 mmol/L 3.5-5.0 AC CA IONZ (test code = 2395434531) 3.60 mg/dL 4.50-5.30 L GLUCOSE (test code = 1949111658) 316 mg/dL 70-110 H AC Hematocrit (test code = 4023509350) 24 See_Comment LL [Automated me ssage] The system which generated this result transmitted reference range: 40 - 54 VOL %. The reference range was not used to interpret this result as normal/abnormal. THB (test code = 3336068509) 8.2 g/dL 13.5-18.0 LL AC TC02 (test code = 4201731479) 25 mmol/L See_Comment [Automated messa ge] The system which generated this result transmitted reference range: 23-27 mmol/L. The reference range was not used to interpret this result as normal/abnormal. Lab Interpretation (test code = 67892-7) Abnormal [facility] ACUTE CARE [id number] 22:40:42* Test Item Value Reference Range Interpretation Comme nts PH (test code = 2) 7.40 7.35-7.45 PCO2 (test code = 7510606128) 38 See_Comment [Automated messa ge] The system which generated this result transmitted reference range: 35 - 45 mmHg. The reference range was not used to interpret this result as normal/abnormal. PO2 (test code = 7885266767) 245 See_Comment H [Automated messa ge] The system which generated this result transmitted reference range: 80 - 100 mmHg. The reference range was not used to interpret this result as normal/abnormal. BE (test code = 1648100355) -1.0 See_Comment [Automated messa ge] The system which generated this result transmitted reference range: -3.0 - 3.0 mEq/L. The reference range was not used to interpret this result as normal/abnormal. HCO3 (test code = 3556682501) 24 See_Comment [Automated messa ge] The system which generated this result transmitted reference range: 22 - 26 mEq/L. The reference range was not used to interpret this result as normal/abnormal. %O2HB (test code = 9798159389) 100.0 % 95.0-98.0 H NA (test code = 1976279833) 135 mmol/L 135-145 K+ (test code = 6166088654) 3.9 mmol/L 3.5-5.0 AC CA IONZ (test code = 0844715466) 3.60 mg/dL 4.50-5.30 L GLUCOSE (test code = 2546595289) 316 mg/dL 70-110 H AC Hematocrit (test code = 3993005760) 24 See_Comment LL [Automated me ssage] The system which generated this result transmitted reference range: 40 - 54 VOL %. The reference range was not used to interpret this result as normal/abnormal. THB (test code = 9734525236) 8.2 g/dL 13.5-18.0 LL AC TC02 (test code = 2150120726) 25 mmol/L See_Comment [Automated messa ge] The system which generated this result transmitted reference range: 23-27 mmol/L. The reference range was not used to interpret this result as normal/abnormal. Lab Interpretation (test code = 12139-2) Abnormal [facility] ACUTE CARE [id number] 22:07:12* Test Item Value Reference Range Interpretation Comme nts PH (test code = 2) 7.39 7.35-7.45 PCO2 (test code = 3563980912) 39 See_Comment [Automated messa ge] The system which generated this result transmitted reference range: 35 - 45 mmHg. The reference range was not used to interpret this result as normal/abnormal. PO2 (test code = 3977704867) 246 See_Comment H [Automated messa ge] The system which generated this result transmitted reference range: 80 - 100 mmHg. The reference range was not used to interpret this result as normal/abnormal. BE (test code = 3758573352) -1.0 See_Comment [Automated messa ge] The system which generated this result transmitted reference range: -3.0 - 3.0 mEq/L. The reference range was not used to interpret this result as normal/abnormal. HCO3 (test code = 6148781146) 24 See_Comment [Automated messa ge] The system which generated this result transmitted reference range: 22 - 26 mEq/L. The reference range was not used to interpret this result as normal/abnormal. %O2HB (test code = 8607207778) 100.0 % 95.0-98.0 H NA (test code = 7619473193) 137 mmol/L 135-145 K+ (test code = 8543568179) 2.9 mmol/L 3.5-5.0 LL AC CA IONZ (test code = 3410229906) 4.00 mg/dL 4.50-5.30 L GLUCOSE (test code = 6761016123) 285 mg/dL 70-110 H AC Hematocrit (test code = 4016993544) 25 See_Comment LL [Automated me ssage] The system which generated this result transmitted reference range: 40 - 54 VOL %. The reference range was not used to interpret this result as normal/abnormal. THB (test code = 5647635402) 8.5 g/dL 13.5-18.0 L AC TC02 (test code = 2103754949) 25 mmol/L See_Comment [Automated messa ge] The system which generated this result transmitted reference range: 23-27 mmol/L. The reference range was not used to interpret this result as normal/abnormal. Lab Interpretation (test code = 86476-8) Abnormal [facility] [facility] [id number] 22:07:12* Test Item Value Reference Range Interpretation Comme nts PH (test code = 2) 7.39 7.35-7.45 PCO2 (test code = 0018891538) 39 See_Comment [Automated messa ge] The system which generated this result transmitted reference range: 35 - 45 mmHg. The reference range was not used to interpret this result as normal/abnormal. PO2 (test code = 5257779131) 246 See_Comment H [Automated messa ge] The system which generated this result transmitted reference range: 80 - 100 mmHg. The reference range was not used to interpret this result as normal/abnormal. BE (test code = 0574551557) -1.0 See_Comment [Automated messa ge] The system which generated this result transmitted reference range: -3.0 - 3.0 mEq/L. The reference range was not used to interpret this result as normal/abnormal. HCO3 (test code = 0173491006) 24 See_Comment [Automated messa ge] The system which generated this result transmitted reference range: 22 - 26 mEq/L. The reference range was not used to interpret this result as normal/abnormal. %O2HB (test code = 3426140308) 100.0 % 95.0-98.0 H NA (test code = 5381182668) 137 mmol/L 135-145 K+ (test code = 7443022869) 2.9 mmol/L 3.5-5.0 LL AC CA IONZ (test code = 1108014428) 4.00 mg/dL 4.50-5.30 L GLUCOSE (test code = 5670453120) 285 mg/dL 70-110 H AC Hematocrit (test code = 5478572322) 25 See_Comment LL [Automated me ssage] The system which generated this result transmitted reference range: 40 - 54 VOL %. The reference range was not used to interpret this result as normal/abnormal. THB (test code = 9143603232) 8.5 g/dL 13.5-18.0 L AC TC02 (test code = 5594668506) 25 mmol/L See_Comment [Automated messa ge] The system which generated this result transmitted reference range: 23-27 mmol/L. The reference range was not used to interpret this result as normal/abnormal. Lab Interpretation (test code = 37292-3) Abnormal [facility] ACUTE CARE [id number] 22:07:12* Test Item Value Reference Range Interpretation Comme nts PH (test code = 2) 7.39 7.35-7.45 PCO2 (test code = 5691136737) 39 See_Comment [Automated messa ge] The system which generated this result transmitted reference range: 35 - 45 mmHg. The reference range was not used to interpret this result as normal/abnormal. PO2 (test code = 8080993735) 246 See_Comment H [Automated messa ge] The system which generated this result transmitted reference range: 80 - 100 mmHg. The reference range was not used to interpret this result as normal/abnormal. BE (test code = 6917246466) -1.0 See_Comment [Automated messa ge] The system which generated this result transmitted reference range: -3.0 - 3.0 mEq/L. The reference range was not used to interpret this result as normal/abnormal. HCO3 (test code = 4729262164) 24 See_Comment [Automated messa ge] The system which generated this result transmitted reference range: 22 - 26 mEq/L. The reference range was not used to interpret this result as normal/abnormal. %O2HB (test code = 1795502221) 100.0 % 95.0-98.0 H NA (test code = 4828405837) 137 mmol/L 135-145 K+ (test code = 8541911391) 2.9 mmol/L 3.5-5.0 LL AC CA IONZ (test code = 7207914421) 4.00 mg/dL 4.50-5.30 L GLUCOSE (test code = 3303621274) 285 mg/dL 70-110 H AC Hematocrit (test code = 1128879962) 25 See_Comment LL [Automated me ssage] The system which generated this result transmitted reference range: 40 - 54 VOL %. The reference range was not used to interpret this result as normal/abnormal. THB (test code = 8104873634) 8.5 g/dL 13.5-18.0 L AC TC02 (test code = 3639359285) 25 mmol/L See_Comment [Automated messa ge] The system which generated this result transmitted reference range: 23-27 mmol/L. The reference range was not used to interpret this result as normal/abnormal. Lab Interpretation (test code = 02410-4) Abnormal [facility] ACUTE CARE [id number] 21:40:16* Test Item Value Reference Range Interpretation Comme nts PH (test code = 2) 7.40 7.35-7.45 PCO2 (test code = 5065836377) 40 See_Comment [Automated messa ge] The system which generated this result transmitted reference range: 35 - 45 mmHg. The reference range was not used to interpret this result as normal/abnormal. PO2 (test code = 9347604457) 241 See_Comment H [Automated messa ge] The system which generated this result transmitted reference range: 80 - 100 mmHg. The reference range was not used to interpret this result as normal/abnormal. BE (test code = 7581411901) 0.0 See_Comment [Automated messa ge] The system which generated this result transmitted reference range: -3.0 - 3.0 mEq/L. The reference range was not used to interpret this result as normal/abnormal. HCO3 (test code = 3350234977) 25 See_Comment [Automated messa ge] The system which generated this result transmitted reference range: 22 - 26 mEq/L. The reference range was not used to interpret this result as normal/abnormal. %O2HB (test code = 2565443727) 100.0 % 95.0-98.0 H NA (test code = 4787078736) 136 mmol/L 135-145 K+ (test code = 1213586841) 3.0 mmol/L 3.5-5.0 L AC CA IONZ (test code = 2915871546) 4.00 mg/dL 4.50-5.30 L GLUCOSE (test code = 9337947744) 280 mg/dL 70-110 H AC Hematocrit (test code = 4170975915) 25 See_Comment LL [Automated me ssage] The system which generated this result transmitted reference range: 40 - 54 VOL %. The reference range was not used to interpret this result as normal/abnormal. THB (test code = 5819531418) 8.5 g/dL 13.5-18.0 L AC TC02 (test code = 7289374592) 26 mmol/L See_Comment [Automated messa ge] The system which generated this result transmitted reference range: 23-27 mmol/L. The reference range was not used to interpret this result as normal/abnormal. Lab Interpretation (test code = 58344-3) Abnormal [facility] ACUTE CARE [id number] 21:40:16* Test Item Value Reference Range Interpretation Comme nts PH (test code = 2) 7.40 7.35-7.45 PCO2 (test code = 0455764377) 40 See_Comment [Automated messa ge] The system which generated this result transmitted reference range: 35 - 45 mmHg. The reference range was not used to interpret this result as normal/abnormal. PO2 (test code = 1839348071) 241 See_Comment H [Automated messa ge] The system which generated this result transmitted reference range: 80 - 100 mmHg. The reference range was not used to interpret this result as normal/abnormal. BE (test code = 3295255874) 0.0 See_Comment [Automated messa ge] The system which generated this result transmitted reference range: -3.0 - 3.0 mEq/L. The reference range was not used to interpret this result as normal/abnormal. HCO3 (test code = 5707535794) 25 See_Comment [Automated messa ge] The system which generated this result transmitted reference range: 22 - 26 mEq/L. The reference range was not used to interpret this result as normal/abnormal. %O2HB (test code = 4292197392) 100.0 % 95.0-98.0 H NA (test code = 1516782330) 136 mmol/L 135-145 K+ (test code = 6773378361) 3.0 mmol/L 3.5-5.0 L AC CA IONZ (test code = 5298364364) 4.00 mg/dL 4.50-5.30 L GLUCOSE (test code = 6223275875) 280 mg/dL 70-110 H AC Hematocrit (test code = 5659556866) 25 See_Comment LL [Automated me ssage] The system which generated this result transmitted reference range: 40 - 54 VOL %. The reference range was not used to interpret this result as normal/abnormal. THB (test code = 2305856709) 8.5 g/dL 13.5-18.0 L AC TC02 (test code = 8686282329) 26 mmol/L See_Comment [Automated messa ge] The system which generated this result transmitted reference range: 23-27 mmol/L. The reference range was not used to interpret this result as normal/abnormal. Lab Interpretation (test code = 93890-2) Abnormal [facility] ACUTE CARE [id number] 21:40:16* Test Item Value Reference Range Interpretation Comme nts PH (test code = 2) 7.40 7.35-7.45 PCO2 (test code = 6576977813) 40 See_Comment [Automated messa ge] The system which generated this result transmitted reference range: 35 - 45 mmHg. The reference range was not used to interpret this result as normal/abnormal. PO2 (test code = 3788248704) 241 See_Comment H [Automated messa ge] The system which generated this result transmitted reference range: 80 - 100 mmHg. The reference range was not used to interpret this result as normal/abnormal. BE (test code = 4947699498) 0.0 See_Comment [Automated messa ge] The system which generated this result transmitted reference range: -3.0 - 3.0 mEq/L. The reference range was not used to interpret this result as normal/abnormal. HCO3 (test code = 5163969731) 25 See_Comment [Automated messa ge] The system which generated this result transmitted reference range: 22 - 26 mEq/L. The reference range was not used to interpret this result as normal/abnormal. %O2HB (test code = 5395973474) 100.0 % 95.0-98.0 H NA (test code = 4925082562) 136 mmol/L 135-145 K+ (test code = 0519981342) 3.0 mmol/L 3.5-5.0 L AC CA IONZ (test code = 6470159005) 4.00 mg/dL 4.50-5.30 L GLUCOSE (test code = 9515102037) 280 mg/dL 70-110 H AC Hematocrit (test code = 4912319129) 25 See_Comment LL [Automated me ssage] The system which generated this result transmitted reference range: 40 - 54 VOL %. The reference range was not used to interpret this result as normal/abnormal. THB (test code = 6242616743) 8.5 g/dL 13.5-18.0 L AC TC02 (test code = 0810576011) 26 mmol/L See_Comment [Automated messa ge] The system which generated this result transmitted reference range: 23-27 mmol/L. The reference range was not used to interpret this result as normal/abnormal. Lab Interpretation (test code = 66847-0) Abnormal [facility] ACUTE [facility] [id number] 21:17:12* Test Item Value Reference Range Interpretation Comme nts PH (test code = 2) 7.41 7.35-7.45 PCO2 (test code = 6572179995) 39 See_Comment [Automated messa ge] The system which generated this result transmitted reference range: 35 - 45 mmHg. The reference range was not used to interpret this result as normal/abnormal. PO2 (test code = 1404366031) 247 See_Comment H [Automated messa ge] The system which generated this result transmitted reference range: 80 - 100 mmHg. The reference range was not used to interpret this result as normal/abnormal. BE (test code = 9653083619) 0.0 See_Comment [Automated messa ge] The system which generated this result transmitted reference range: -3.0 - 3.0 mEq/L. The reference range was not used to interpret this result as normal/abnormal. HCO3 (test code = 8998282481) 25 See_Comment [Automated messa ge] The system which generated this result transmitted reference range: 22 - 26 mEq/L. The reference range was not used to interpret this result as normal/abnormal. %O2HB (test code = 1898279887) 100.0 % 95.0-98.0 H NA (test code = 0254288247) 135 mmol/L 135-145 K+ (test code = 1612273753) 3.2 mmol/L 3.5-5.0 L AC CA IONZ (test code = 2746740200) 3.90 mg/dL 4.50-5.30 L GLUCOSE (test code = 0205485413) 302 mg/dL 70-110 H AC Hematocrit (test code = 6660970146) 26 See_Comment L [Automated me ssage] The system which generated this result transmitted reference range: 40 - 54 VOL %. The reference range was not used to interpret this result as normal/abnormal. THB (test code = 1926993685) 8.8 g/dL 13.5-18.0 L AC TC02 (test code = 5217890904) 26 mmol/L See_Comment [Automated messa ge] The system which generated this result transmitted reference range: 23-27 mmol/L. The reference range was not used to interpret this result as normal/abnormal. Lab Interpretation (test code = 60348-5) Abnormal [facility] ACUTE CARE [id number] 21:17:12* Test Item Value Reference Range Interpretation Comme nts PH (test code = 2) 7.41 7.35-7.45 PCO2 (test code = 6961899586) 39 See_Comment [Automated messa ge] The system which generated this result transmitted reference range: 35 - 45 mmHg. The reference range was not used to interpret this result as normal/abnormal. PO2 (test code = 1965318096) 247 See_Comment H [Automated messa ge] The system which generated this result transmitted reference range: 80 - 100 mmHg. The reference range was not used to interpret this result as normal/abnormal. BE (test code = 0028681564) 0.0 See_Comment [Automated messa ge] The system which generated this result transmitted reference range: -3.0 - 3.0 mEq/L. The reference range was not used to interpret this result as normal/abnormal. HCO3 (test code = 4926959524) 25 See_Comment [Automated messa ge] The system which generated this result transmitted reference range: 22 - 26 mEq/L. The reference range was not used to interpret this result as normal/abnormal. %O2HB (test code = 0925756681) 100.0 % 95.0-98.0 H NA (test code = 3299010874) 135 mmol/L 135-145 K+ (test code = 6642861005) 3.2 mmol/L 3.5-5.0 L AC CA IONZ (test code = 2714874968) 3.90 mg/dL 4.50-5.30 L GLUCOSE (test code = 3401082441) 302 mg/dL 70-110 H AC Hematocrit (test code = 5473498485) 26 See_Comment L [Automated me ssage] The system which generated this result transmitted reference range: 40 - 54 VOL %. The reference range was not used to interpret this result as normal/abnormal. THB (test code = 8382081846) 8.8 g/dL 13.5-18.0 L AC TC02 (test code = 1831346411) 26 mmol/L See_Comment [Automated messa ge] The system which generated this result transmitted reference range: 23-27 mmol/L. The reference range was not used to interpret this result as normal/abnormal. Lab Interpretation (test code = 94149-5) Abnormal [facility] ACUTE CARE [id number] 21:17:12* Test Item Value Reference Range Interpretation Comme nts PH (test code = 2) 7.41 7.35-7.45 PCO2 (test code = 8922808713) 39 See_Comment [Automated messa ge] The system which generated this result transmitted reference range: 35 - 45 mmHg. The reference range was not used to interpret this result as normal/abnormal. PO2 (test code = 2689851166) 247 See_Comment H [Automated messa ge] The system which generated this result transmitted reference range: 80 - 100 mmHg. The reference range was not used to interpret this result as normal/abnormal. BE (test code = 6871574901) 0.0 See_Comment [Automated messa ge] The system which generated this result transmitted reference range: -3.0 - 3.0 mEq/L. The reference range was not used to interpret this result as normal/abnormal. HCO3 (test code = 0314643466) 25 See_Comment [Automated messa ge] The system which generated this result transmitted reference range: 22 - 26 mEq/L. The reference range was not used to interpret this result as normal/abnormal. %O2HB (test code = 6549583846) 100.0 % 95.0-98.0 H NA (test code = 9201619886) 135 mmol/L 135-145 K+ (test code = 4140156444) 3.2 mmol/L 3.5-5.0 L AC CA IONZ (test code = 8609994984) 3.90 mg/dL 4.50-5.30 L GLUCOSE (test code = 7070433109) 302 mg/dL 70-110 H AC Hematocrit (test code = 3788684969) 26 See_Comment L [Automated me ssage] The system which generated this result transmitted reference range: 40 - 54 VOL %. The reference range was not used to interpret this result as normal/abnormal. THB (test code = 7205487801) 8.8 g/dL 13.5-18.0 L AC TC02 (test code = 5990172805) 26 mmol/L See_Comment [Automated messa ge] The system which generated this result transmitted reference range: 23-27 mmol/L. The reference range was not used to interpret this result as normal/abnormal. Lab Interpretation (test code = 32602-2) Abnormal [facility] ACUTE CARE [id number] 20:47:44* Test Item Value Reference Range Interpretation Comme nts PH (test code = 2) 7.41 7.35-7.45 PCO2 (test code = 7340357245) 39 See_Comment [Automated messa ge] The system which generated this result transmitted reference range: 35 - 45 mmHg. The reference range was not used to interpret this result as normal/abnormal. PO2 (test code = 9268239430) 243 See_Comment H [Automated messa ge] The system which generated this result transmitted reference range: 80 - 100 mmHg. The reference range was not used to interpret this result as normal/abnormal. BE (test code = 1833751238) 0.0 See_Comment [Automated messa ge] The system which generated this result transmitted reference range: -3.0 - 3.0 mEq/L. The reference range was not used to interpret this result as normal/abnormal. HCO3 (test code = 6581662595) 24 See_Comment [Automated messa ge] The system which generated this result transmitted reference range: 22 - 26 mEq/L. The reference range was not used to interpret this result as normal/abnormal. %O2HB (test code = 2355747062) 100.0 % 95.0-98.0 H NA (test code = 7815791780) 136 mmol/L 135-145 K+ (test code = 4513571453) 3.5 mmol/L 3.5-5.0 AC CA IONZ (test code = 4075252322) 3.90 mg/dL 4.50-5.30 L GLUCOSE (test code = 9646097731) 299 mg/dL 70-110 H AC Hematocrit (test code = 7890336028) 26 See_Comment L [Automated me ssage] The system which generated this result transmitted reference range: 40 - 54 VOL %. The reference range was not used to interpret this result as normal/abnormal. THB (test code = 8196799783) 8.8 g/dL 13.5-18.0 L 1 AC TC02 (test code = 9326026550) 25 mmol/L See_Comment [Automated messa ge] The system which generated this result transmitted reference range: 23-27 mmol/L. The reference range was not used to interpret this result as normal/abnormal. Lab Interpretation (test code = 14053-1) Abnormal [facility] ACUTE CARE [id number] 20:47:44* Test Item Value Reference Range Interpretation Comme nts PH (test code = 2) 7.41 7.35-7.45 PCO2 (test code = 3826985493) 39 See_Comment [Automated messa ge] The system which generated this result transmitted reference range: 35 - 45 mmHg. The reference range was not used to interpret this result as normal/abnormal. PO2 (test code = 0235091932) 243 See_Comment H [Automated messa ge] The system which generated this result transmitted reference range: 80 - 100 mmHg. The reference range was not used to interpret this result as normal/abnormal. BE (test code = 6697376357) 0.0 See_Comment [Automated messa ge] The system which generated this result transmitted reference range: -3.0 - 3.0 mEq/L. The reference range was not used to interpret this result as normal/abnormal. HCO3 (test code = 5441497125) 24 See_Comment [Automated messa ge] The system which generated this result transmitted reference range: 22 - 26 mEq/L. The reference range was not used to interpret this result as normal/abnormal. %O2HB (test code = 5903952145) 100.0 % 95.0-98.0 H NA (test code = 2120740642) 136 mmol/L 135-145 K+ (test code = 3045626000) 3.5 mmol/L 3.5-5.0 AC CA IONZ (test code = 5367267218) 3.90 mg/dL 4.50-5.30 L GLUCOSE (test code = 2494316570) 299 mg/dL 70-110 H AC Hematocrit (test code = 6476138660) 26 See_Comment L [Automated me ssage] The system which generated this result transmitted reference range: 40 - 54 VOL %. The reference range was not used to interpret this result as normal/abnormal. THB (test code = 6488074061) 8.8 g/dL 13.5-18.0 L 1 AC TC02 (test code = 6732314958) 25 mmol/L See_Comment [Automated messa ge] The system which generated this result transmitted reference range: 23-27 mmol/L. The reference range was not used to interpret this result as normal/abnormal. Lab Interpretation (test code = 04339-9) Abnormal [facility] ACUTE CARE [id number] 20:47:44* Test Item Value Reference Range Interpretation Comme nts PH (test code = 2) 7.41 7.35-7.45 PCO2 (test code = 9536562300) 39 See_Comment [Automated messa ge] The system which generated this result transmitted reference range: 35 - 45 mmHg. The reference range was not used to interpret this result as normal/abnormal. PO2 (test code = 2617134187) 243 See_Comment H [Automated messa ge] The system which generated this result transmitted reference range: 80 - 100 mmHg. The reference range was not used to interpret this result as normal/abnormal. BE (test code = 6996321234) 0.0 See_Comment [Automated messa ge] The system which generated this result transmitted reference range: -3.0 - 3.0 mEq/L. The reference range was not used to interpret this result as normal/abnormal. HCO3 (test code = 9621704336) 24 See_Comment [Automated messa ge] The system which generated this result transmitted reference range: 22 - 26 mEq/L. The reference range was not used to interpret this result as normal/abnormal. %O2HB (test code = 6367716391) 100.0 % 95.0-98.0 H NA (test code = 5335471674) 136 mmol/L 135-145 K+ (test code = 5186393437) 3.5 mmol/L 3.5-5.0 AC CA IONZ (test code = 5327979076) 3.90 mg/dL 4.50-5.30 L GLUCOSE (test code = 0562751213) 299 mg/dL 70-110 H AC Hematocrit (test code = 7922153552) 26 See_Comment L [Automated me ssage] The system which generated this result transmitted reference range: 40 - 54 VOL %. The reference range was not used to interpret this result as normal/abnormal. THB (test code = 6662581026) 8.8 g/dL 13.5-18.0 L 1 AC TC02 (test code = 6264036188) 25 mmol/L See_Comment [Automated messa ge] The system which generated this result transmitted reference range: 23-27 mmol/L. The reference range was not used to interpret this result as normal/abnormal. Lab Interpretation (test code = 09071-6) Abnormal [facility] ACUTE CARE [id number] 20:10:37* Test Item Value Reference Range Interpretation Comme nts PH (test code = 2) 7.41 7.35-7.45 PCO2 (test code = 6651107439) 37 See_Comment [Automated messa ge] The system which generated this result transmitted reference range: 35 - 45 mmHg. The reference range was not used to interpret this result as normal/abnormal. PO2 (test code = 1746380595) 231 See_Comment H [Automated messa ge] The system which generated this result transmitted reference range: 80 - 100 mmHg. The reference range was not used to interpret this result as normal/abnormal. BE (test code = 3410622147) -1.0 See_Comment [Automated messa ge] The system which generated this result transmitted reference range: -3.0 - 3.0 mEq/L. The reference range was not used to interpret this result as normal/abnormal. HCO3 (test code = 8402453111) 23 See_Comment [Automated messa ge] The system which generated this result transmitted reference range: 22 - 26 mEq/L. The reference range was not used to interpret this result as normal/abnormal. %O2HB (test code = 4140669389) 100.0 % 95.0-98.0 H NA (test code = 1134539952) 137 mmol/L 135-145 K+ (test code = 7269667265) 3.5 mmol/L 3.5-5.0 AC CA IONZ (test code = 5868869719) 3.90 mg/dL 4.50-5.30 L GLUCOSE (test code = 6544649012) 260 mg/dL 70-110 H AC Hematocrit (test code = 9063185474) 26 See_Comment L [Automated me ssage] The system which generated this result transmitted reference range: 40 - 54 VOL %. The reference range was not used to interpret this result as normal/abnormal. THB (test code = 9314658894) 8.8 g/dL 13.5-18.0 L AC TC02 (test code = 6499889608) 25 mmol/L See_Comment [Automated messa ge] The system which generated this result transmitted reference range: 23-27 mmol/L. The reference range was not used to interpret this result as normal/abnormal. Lab Interpretation (test code = 99468-2) Abnormal [facility] ACUTE CARE [id number] 20:10:37* Test Item Value Reference Range Interpretation Comme nts PH (test code = 2) 7.41 7.35-7.45 PCO2 (test code = 5967812907) 37 See_Comment [Automated messa ge] The system which generated this result transmitted reference range: 35 - 45 mmHg. The reference range was not used to interpret this result as normal/abnormal. PO2 (test code = 2262321627) 231 See_Comment H [Automated messa ge] The system which generated this result transmitted reference range: 80 - 100 mmHg. The reference range was not used to interpret this result as normal/abnormal. BE (test code = 8079297570) -1.0 See_Comment [Automated messa ge] The system which generated this result transmitted reference range: -3.0 - 3.0 mEq/L. The reference range was not used to interpret this result as normal/abnormal. HCO3 (test code = 9296371748) 23 See_Comment [Automated messa ge] The system which generated this result transmitted reference range: 22 - 26 mEq/L. The reference range was not used to interpret this result as normal/abnormal. %O2HB (test code = 9036372486) 100.0 % 95.0-98.0 H NA (test code = 4944869638) 137 mmol/L 135-145 K+ (test code = 2753115149) 3.5 mmol/L 3.5-5.0 AC CA IONZ (test code = 4014155192) 3.90 mg/dL 4.50-5.30 L GLUCOSE (test code = 2046744345) 260 mg/dL 70-110 H AC Hematocrit (test code = 3384742760) 26 See_Comment L [Automated me ssage] The system which generated this result transmitted reference range: 40 - 54 VOL %. The reference range was not used to interpret this result as normal/abnormal. THB (test code = 8149876422) 8.8 g/dL 13.5-18.0 L AC TC02 (test code = 0618364508) 25 mmol/L See_Comment [Automated messa ge] The system which generated this result transmitted reference range: 23-27 mmol/L. The reference range was not used to interpret this result as normal/abnormal. Lab Interpretation (test code = 29363-4) Abnormal [facility] ACUTE CARE [id number] 20:10:37* Test Item Value Reference Range Interpretation Comme nts PH (test code = 2) 7.41 7.35-7.45 PCO2 (test code = 9224765702) 37 See_Comment [Automated messa ge] The system which generated this result transmitted reference range: 35 - 45 mmHg. The reference range was not used to interpret this result as normal/abnormal. PO2 (test code = 0147291907) 231 See_Comment H [Automated messa ge] The system which generated this result transmitted reference range: 80 - 100 mmHg. The reference range was not used to interpret this result as normal/abnormal. BE (test code = 8698819879) -1.0 See_Comment [Automated messa ge] The system which generated this result transmitted reference range: -3.0 - 3.0 mEq/L. The reference range was not used to interpret this result as normal/abnormal. HCO3 (test code = 9435776574) 23 See_Comment [Automated messa ge] The system which generated this result transmitted reference range: 22 - 26 mEq/L. The reference range was not used to interpret this result as normal/abnormal. %O2HB (test code = 8320460626) 100.0 % 95.0-98.0 H NA (test code = 3396387655) 137 mmol/L 135-145 K+ (test code = 7245096391) 3.5 mmol/L 3.5-5.0 AC CA IONZ (test code = 0021978788) 3.90 mg/dL 4.50-5.30 L GLUCOSE (test code = 7817612716) 260 mg/dL 70-110 H AC Hematocrit (test code = 0884219864) 26 See_Comment L [Automated me ssage] The system which generated this result transmitted reference range: 40 - 54 VOL %. The reference range was not used to interpret this result as normal/abnormal. THB (test code = 1506953117) 8.8 g/dL 13.5-18.0 L AC TC02 (test code = 3152788000) 25 mmol/L See_Comment [Automated messa ge] The system which generated this result transmitted reference range: 23-27 mmol/L. The reference range was not used to interpret this result as normal/abnormal. Lab Interpretation (test code = 60853-3) Abnormal [facility] ACUTE CARE [id number] 19:40:39* Test Item Value Reference Range Interpretation Comme nts PH (test code = 2) 7.39 7.35-7.45 PCO2 (test code = 1437051078) 38 See_Comment [Automated messa ge] The system which generated this result transmitted reference range: 35 - 45 mmHg. The reference range was not used to interpret this result as normal/abnormal. PO2 (test code = 7193076687) 217 See_Comment H [Automated messa ge] The system which generated this result transmitted reference range: 80 - 100 mmHg. The reference range was not used to interpret this result as normal/abnormal. BE (test code = 7325445717) -2.0 See_Comment [Automated messa ge] The system which generated this result transmitted reference range: -3.0 - 3.0 mEq/L. The reference range was not used to interpret this result as normal/abnormal. HCO3 (test code = 9610549895) 23 See_Comment [Automated messa ge] The system which generated this result transmitted reference range: 22 - 26 mEq/L. The reference range was not used to interpret this result as normal/abnormal. %O2HB (test code = 9521710746) 100.0 % 95.0-98.0 H NA (test code = 9176133316) 138 mmol/L 135-145 K+ (test code = 1431637774) 3.6 mmol/L 3.5-5.0 AC CA IONZ (test code = 0421023250) 4.10 mg/dL 4.50-5.30 L GLUCOSE (test code = 5058381308) 231 mg/dL 70-110 H AC Hematocrit (test code = 0073568835) 27 See_Comment L [Automated me ssage] The system which generated this result transmitted reference range: 40 - 54 VOL %. The reference range was not used to interpret this result as normal/abnormal. THB (test code = 9304925213) 9.2 g/dL 13.5-18.0 L AC TC02 (test code = 4199041328) 24 mmol/L See_Comment [Automated messa ge] The system which generated this result transmitted reference range: 23-27 mmol/L. The reference range was not used to interpret this result as normal/abnormal. Lab Interpretation (test code = 84458-7) Abnormal [facility] ACUTE CARE [id number] 19:40:39* Test Item Value Reference Range Interpretation Comme nts PH (test code = 2) 7.39 7.35-7.45 PCO2 (test code = 4285437381) 38 See_Comment [Automated messa ge] The system which generated this result transmitted reference range: 35 - 45 mmHg. The reference range was not used to interpret this result as normal/abnormal. PO2 (test code = 0329527685) 217 See_Comment H [Automated messa ge] The system which generated this result transmitted reference range: 80 - 100 mmHg. The reference range was not used to interpret this result as normal/abnormal. BE (test code = 7186186696) -2.0 See_Comment [Automated messa ge] The system which generated this result transmitted reference range: -3.0 - 3.0 mEq/L. The reference range was not used to interpret this result as normal/abnormal. HCO3 (test code = 5931356041) 23 See_Comment [Automated messa ge] The system which generated this result transmitted reference range: 22 - 26 mEq/L. The reference range was not used to interpret this result as normal/abnormal. %O2HB (test code = 7496184921) 100.0 % 95.0-98.0 H NA (test code = 9746917521) 138 mmol/L 135-145 K+ (test code = 7540688222) 3.6 mmol/L 3.5-5.0 AC CA IONZ (test code = 4526046522) 4.10 mg/dL 4.50-5.30 L GLUCOSE (test code = 4802717180) 231 mg/dL 70-110 H AC Hematocrit (test code = 4655645642) 27 See_Comment L [Automated me ssage] The system which generated this result transmitted reference range: 40 - 54 VOL %. The reference range was not used to interpret this result as normal/abnormal. THB (test code = 2222357394) 9.2 g/dL 13.5-18.0 L AC TC02 (test code = 8924707293) 24 mmol/L See_Comment [Automated messa ge] The system which generated this result transmitted reference range: 23-27 mmol/L. The reference range was not used to interpret this result as normal/abnormal. Lab Interpretation (test code = 08977-7) Abnormal [facility] ACUTE CARE [id number] 19:40:39* Test Item Value Reference Range Interpretation Comme nts PH (test code = 2) 7.39 7.35-7.45 PCO2 (test code = 6619061505) 38 See_Comment [Automated messa ge] The system which generated this result transmitted reference range: 35 - 45 mmHg. The reference range was not used to interpret this result as normal/abnormal. PO2 (test code = 0805801359) 217 See_Comment H [Automated messa ge] The system which generated this result transmitted reference range: 80 - 100 mmHg. The reference range was not used to interpret this result as normal/abnormal. BE (test code = 8073741670) -2.0 See_Comment [Automated messa ge] The system which generated this result transmitted reference range: -3.0 - 3.0 mEq/L. The reference range was not used to interpret this result as normal/abnormal. HCO3 (test code = 0713445296) 23 See_Comment [Automated messa ge] The system which generated this result transmitted reference range: 22 - 26 mEq/L. The reference range was not used to interpret this result as normal/abnormal. %O2HB (test code = 5044956197) 100.0 % 95.0-98.0 H NA (test code = 8750996930) 138 mmol/L 135-145 K+ (test code = 1833069645) 3.6 mmol/L 3.5-5.0 AC CA IONZ (test code = 2371486251) 4.10 mg/dL 4.50-5.30 L GLUCOSE (test code = 4772146177) 231 mg/dL 70-110 H AC Hematocrit (test code = 2200134283) 27 See_Comment L [Automated me ssage] The system which generated this result transmitted reference range: 40 - 54 VOL %. The reference range was not used to interpret this result as normal/abnormal. THB (test code = 1588195072) 9.2 g/dL 13.5-18.0 L AC TC02 (test code = 7622155293) 24 mmol/L See_Comment [Automated messa ge] The system which generated this result transmitted reference range: 23-27 mmol/L. The reference range was not used to interpret this result as normal/abnormal. Lab Interpretation (test code = 65587-6) Abnormal [facility] ACUTE CARE [id number] 19:10:28* Test Item Value Reference Range Interpretation Comme nts PH (test code = 2) 7.42 7.35-7.45 PCO2 (test code = 5315006903) 39 See_Comment [Automated messa ge] The system which generated this result transmitted reference range: 35 - 45 mmHg. The reference range was not used to interpret this result as normal/abnormal. PO2 (test code = 3082355938) 207 See_Comment H [Automated messa ge] The system which generated this result transmitted reference range: 80 - 100 mmHg. The reference range was not used to interpret this result as normal/abnormal. BE (test code = 0820040228) 0.0 See_Comment [Automated messa ge] The system which generated this result transmitted reference range: -3.0 - 3.0 mEq/L. The reference range was not used to interpret this result as normal/abnormal. HCO3 (test code = 1989508030) 25 See_Comment [Automated messa ge] The system which generated this result transmitted reference range: 22 - 26 mEq/L. The reference range was not used to interpret this result as normal/abnormal. %O2HB (test code = 1416971580) 100.0 % 95.0-98.0 H NA (test code = 2765100686) 136 mmol/L 135-145 K+ (test code = 3121653832) 4.1 mmol/L 3.5-5.0 AC CA IONZ (test code = 2515994909) 4.10 mg/dL 4.50-5.30 L GLUCOSE (test code = 0849734488) 262 mg/dL 70-110 H AC Hematocrit (test code = 7669943649) 29 See_Comment L [Automated me ssage] The system which generated this result transmitted reference range: 40 - 54 VOL %. The reference range was not used to interpret this result as normal/abnormal. THB (test code = 2842425797) 9.9 g/dL 13.5-18.0 L AC TC02 (test code = 6298069875) 26 mmol/L See_Comment [Automated messa ge] The system which generated this result transmitted reference range: 23-27 mmol/L. The reference range was not used to interpret this result as normal/abnormal. Lab Interpretation (test code = 58570-5) Abnormal [facility] ACUTE CARE [id number] 19:10:28* Test Item Value Reference Range Interpretation Comme nts PH (test code = 2) 7.42 7.35-7.45 PCO2 (test code = 3559609437) 39 See_Comment [Automated messa ge] The system which generated this result transmitted reference range: 35 - 45 mmHg. The reference range was not used to interpret this result as normal/abnormal. PO2 (test code = 3531446277) 207 See_Comment H [Automated messa ge] The system which generated this result transmitted reference range: 80 - 100 mmHg. The reference range was not used to interpret this result as normal/abnormal. BE (test code = 2266746607) 0.0 See_Comment [Automated messa ge] The system which generated this result transmitted reference range: -3.0 - 3.0 mEq/L. The reference range was not used to interpret this result as normal/abnormal. HCO3 (test code = 8047222171) 25 See_Comment [Automated messa ge] The system which generated this result transmitted reference range: 22 - 26 mEq/L. The reference range was not used to interpret this result as normal/abnormal. %O2HB (test code = 8392140788) 100.0 % 95.0-98.0 H NA (test code = 7491649234) 136 mmol/L 135-145 K+ (test code = 6488881215) 4.1 mmol/L 3.5-5.0 AC CA IONZ (test code = 9990648659) 4.10 mg/dL 4.50-5.30 L GLUCOSE (test code = 1981165577) 262 mg/dL 70-110 H AC Hematocrit (test code = 6312149979) 29 See_Comment L [Automated me ssage] The system which generated this result transmitted reference range: 40 - 54 VOL %. The reference range was not used to interpret this result as normal/abnormal. THB (test code = 5592372089) 9.9 g/dL 13.5-18.0 L AC TC02 (test code = 7453703654) 26 mmol/L See_Comment [Automated messa ge] The system which generated this result transmitted reference range: 23-27 mmol/L. The reference range was not used to interpret this result as normal/abnormal. Lab Interpretation (test code = 17911-0) Abnormal [facility] ACUTE CARE [id number] 19:10:28* Test Item Value Reference Range Interpretation Comme nts PH (test code = 2) 7.42 7.35-7.45 PCO2 (test code = 4770820085) 39 See_Comment [Automated messa ge] The system which generated this result transmitted reference range: 35 - 45 mmHg. The reference range was not used to interpret this result as normal/abnormal. PO2 (test code = 7775471011) 207 See_Comment H [Automated messa ge] The system which generated this result transmitted reference range: 80 - 100 mmHg. The reference range was not used to interpret this result as normal/abnormal. BE (test code = 6969334574) 0.0 See_Comment [Automated messa ge] The system which generated this result transmitted reference range: -3.0 - 3.0 mEq/L. The reference range was not used to interpret this result as normal/abnormal. HCO3 (test code = 3446695374) 25 See_Comment [Automated messa ge] The system which generated this result transmitted reference range: 22 - 26 mEq/L. The reference range was not used to interpret this result as normal/abnormal. %O2HB (test code = 4411674145) 100.0 % 95.0-98.0 H NA (test code = 5214875026) 136 mmol/L 135-145 K+ (test code = 7276612453) 4.1 mmol/L 3.5-5.0 AC CA IONZ (test code = 2729000853) 4.10 mg/dL 4.50-5.30 L GLUCOSE (test code = 6298929720) 262 mg/dL 70-110 H AC Hematocrit (test code = 4394778771) 29 See_Comment L [Automated me ssage] The system which generated this result transmitted reference range: 40 - 54 VOL %. The reference range was not used to interpret this result as normal/abnormal. THB (test code = 2767011516) 9.9 g/dL 13.5-18.0 L AC TC02 (test code = 0106413817) 26 mmol/L See_Comment [Automated messa ge] The system which generated this result transmitted reference range: 23-27 mmol/L. The reference range was not used to interpret this result as normal/abnormal. Lab Interpretation (test code = 62089-3) Abnormal [facility] ACUTE CARE [id number] 18:43:23* Test Item Value Reference Range Interpretation Comme nts PH (test code = 2) 7.44 7.35-7.45 PCO2 (test code = 1346885644) 37 See_Comment [Automated messa ge] The system which generated this result transmitted reference range: 35 - 45 mmHg. The reference range was not used to interpret this result as normal/abnormal. PO2 (test code = 9642680163) 224 See_Comment H [Automated messa ge] The system which generated this result transmitted reference range: 80 - 100 mmHg. The reference range was not used to interpret this result as normal/abnormal. BE (test code = 0879500762) 1.0 See_Comment [Automated messa ge] The system which generated this result transmitted reference range: -3.0 - 3.0 mEq/L. The reference range was not used to interpret this result as normal/abnormal. HCO3 (test code = 3723914088) 25 See_Comment [Automated messa ge] The system which generated this result transmitted reference range: 22 - 26 mEq/L. The reference range was not used to interpret this result as normal/abnormal. %O2HB (test code = 0132644547) 100.0 % 95.0-98.0 H NA (test code = 2307605483) 135 mmol/L 135-145 K+ (test code = 4208854210) 4.8 mmol/L 3.5-5.0 AC CA IONZ (test code = 1214112860) 4.00 mg/dL 4.50-5.30 L GLUCOSE (test code = 1689877870) 275 mg/dL 70-110 H AC Hematocrit (test code = 3827340201) 30 See_Comment L [Automated me ssage] The system which generated this result transmitted reference range: 40 - 54 VOL %. The reference range was not used to interpret this result as normal/abnormal. THB (test code = 2809714300) 10.2 g/dL 13.5-18.0 L AC TC02 (test code = 6880338035) 26 mmol/L See_Comment [Automated messa ge] The system which generated this result transmitted reference range: 23-27 mmol/L. The reference range was not used to interpret this result as normal/abnormal. Lab Interpretation (test code = 31279-5) Abnormal [facility] ACUTE CARE [id number] 18:43:23* Test Item Value Reference Range Interpretation Comme nts PH (test code = 2) 7.44 7.35-7.45 PCO2 (test code = 4399517573) 37 See_Comment [Automated messa ge] The system which generated this result transmitted reference range: 35 - 45 mmHg. The reference range was not used to interpret this result as normal/abnormal. PO2 (test code = 2407974032) 224 See_Comment H [Automated messa ge] The system which generated this result transmitted reference range: 80 - 100 mmHg. The reference range was not used to interpret this result as normal/abnormal. BE (test code = 0247124687) 1.0 See_Comment [Automated messa ge] The system which generated this result transmitted reference range: -3.0 - 3.0 mEq/L. The reference range was not used to interpret this result as normal/abnormal. HCO3 (test code = 2359135461) 25 See_Comment [Automated messa ge] The system which generated this result transmitted reference range: 22 - 26 mEq/L. The reference range was not used to interpret this result as normal/abnormal. %O2HB (test code = 2921730955) 100.0 % 95.0-98.0 H NA (test code = 0657746253) 135 mmol/L 135-145 K+ (test code = 2436581393) 4.8 mmol/L 3.5-5.0 AC CA IONZ (test code = 7831911839) 4.00 mg/dL 4.50-5.30 L GLUCOSE (test code = 8743038266) 275 mg/dL 70-110 H AC Hematocrit (test code = 3516600879) 30 See_Comment L [Automated me ssage] The system which generated this result transmitted reference range: 40 - 54 VOL %. The reference range was not used to interpret this result as normal/abnormal. THB (test code = 6832404365) 10.2 g/dL 13.5-18.0 L AC TC02 (test code = 0017932743) 26 mmol/L See_Comment [Automated messa ge] The system which generated this result transmitted reference range: 23-27 mmol/L. The reference range was not used to interpret this result as normal/abnormal. Lab Interpretation (test code = 13988-1) Abnormal [facility] ACUTE CARE [id number] 18:43:23* Test Item Value Reference Range Interpretation Comme nts PH (test code = 2) 7.44 7.35-7.45 PCO2 (test code = 7119191803) 37 See_Comment [Automated messa ge] The system which generated this result transmitted reference range: 35 - 45 mmHg. The reference range was not used to interpret this result as normal/abnormal. PO2 (test code = 9678104392) 224 See_Comment H [Automated messa ge] The system which generated this result transmitted reference range: 80 - 100 mmHg. The reference range was not used to interpret this result as normal/abnormal. BE (test code = 4946730722) 1.0 See_Comment [Automated messa ge] The system which generated this result transmitted reference range: -3.0 - 3.0 mEq/L. The reference range was not used to interpret this result as normal/abnormal. HCO3 (test code = 2635923398) 25 See_Comment [Automated messa ge] The system which generated this result transmitted reference range: 22 - 26 mEq/L. The reference range was not used to interpret this result as normal/abnormal. %O2HB (test code = 8845866114) 100.0 % 95.0-98.0 H NA (test code = 5503011974) 135 mmol/L 135-145 K+ (test code = 4790580407) 4.8 mmol/L 3.5-5.0 AC CA IONZ (test code = 9410198528) 4.00 mg/dL 4.50-5.30 L GLUCOSE (test code = 9519344180) 275 mg/dL 70-110 H AC Hematocrit (test code = 7717900910) 30 See_Comment L [Automated me ssage] The system which generated this result transmitted reference range: 40 - 54 VOL %. The reference range was not used to interpret this result as normal/abnormal. THB (test code = 3180999007) 10.2 g/dL 13.5-18.0 L AC TC02 (test code = 1410594403) 26 mmol/L See_Comment [Automated messa ge] The system which generated this result transmitted reference range: 23-27 mmol/L. The reference range was not used to interpret this result as normal/abnormal. Lab Interpretation (test code = 05029-1) Abnormal [facility] ACUTE CARE [id number] 18:10:02* Test Item Value Reference Range Interpretation Comme nts PH (test code = 2) 7.35 7.35-7.45 PCO2 (test code = 8610068302) 44 See_Comment [Automated messa ge] The system which generated this result transmitted reference range: 35 - 45 mmHg. The reference range was not used to interpret this result as normal/abnormal. PO2 (test code = 4202476765) 249 See_Comment H [Automated messa ge] The system which generated this result transmitted reference range: 80 - 100 mmHg. The reference range was not used to interpret this result as normal/abnormal. BE (test code = 6622292640) -2.0 See_Comment [Automated messa ge] The system which generated this result transmitted reference range: -3.0 - 3.0 mEq/L. The reference range was not used to interpret this result as normal/abnormal. HCO3 (test code = 5883147194) 24 See_Comment [Automated messa ge] The system which generated this result transmitted reference range: 22 - 26 mEq/L. The reference range was not used to interpret this result as normal/abnormal. %O2HB (test code = 4986650776) 100.0 % 95.0-98.0 H NA (test code = 9777660054) 141 mmol/L 135-145 K+ (test code = 4051450782) 3.7 mmol/L 3.5-5.0 AC CA IONZ (test code = 9290351349) 5.00 mg/dL 4.50-5.30 GLUCOSE (test code = 2145244696) 115 mg/dL 70-110 H AC Hematocrit (test code = 5077849352) 40 See_Comment [Automated me ssage] The system which generated this result transmitted reference range: 40 - 54 VOL %. The reference range was not used to interpret this result as normal/abnormal. THB (test code = 4264103230) 13.6 g/dL 13.5-18.0 AC TC02 (test code = 7425763016) 25 mmol/L See_Comment [Automated messa ge] The system which generated this result transmitted reference range: 23-27 mmol/L. The reference range was not used to interpret this result as normal/abnormal. Lab Interpretation (test code = 23703-6) Abnormal [facility] ACUTE CARE [id number] 18:10:02* Test Item Value Reference Range Interpretation Comme nts PH (test code = 2) 7.29 7.35-7.45 L PCO2 (test code = 7092187948) 47 See_Comment H [Automated messa ge] The system which generated this result transmitted reference range: 35 - 45 mmHg. The reference range was not used to interpret this result as normal/abnormal. PO2 (test code = 7559566490) 287 See_Comment H [Automated messa ge] The system which generated this result transmitted reference range: 80 - 100 mmHg. The reference range was not used to interpret this result as normal/abnormal. BE (test code = 3568782119) -4.0 See_Comment L [Automated messa ge] The system which generated this result transmitted reference range: -3.0 - 3.0 mEq/L. The reference range was not used to interpret this result as normal/abnormal. HCO3 (test code = 4263277363) 23 See_Comment [Automated messa ge] The system which generated this result transmitted reference range: 22 - 26 mEq/L. The reference range was not used to interpret this result as normal/abnormal. %O2HB (test code = 9249367350) 100.0 % 95.0-98.0 H NA (test code = 8808056952) 139 mmol/L 135-145 K+ (test code = 7459325797) 4.3 mmol/L 3.5-5.0 AC CA IONZ (test code = 4500497976) 3.70 mg/dL 4.50-5.30 L GLUCOSE (test code = 6930247460) 139 mg/dL 70-110 H AC Hematocrit (test code = 5690614878) 29 See_Comment L [Automated me ssage] The system which generated this result transmitted reference range: 40 - 54 VOL %. The reference range was not used to interpret this result as normal/abnormal. THB (test code = 4160974935) 9.9 g/dL 13.5-18.0 L AC TC02 (test code = 8581443638) 24 mmol/L See_Comment [Automated messa ge] The system which generated this result transmitted reference range: 23-27 mmol/L. The reference range was not used to interpret this result as normal/abnormal. Lab Interpretation (test code = 20864-4) Abnormal [facility] AC[facility] CARE [id number] 18:10:02* Test Item Value Reference Range Interpretation Comme nts PH (test code = 2) 7.38 7.35-7.45 PCO2 (test code = 1291089715) 42 See_Comment [Automated messa ge] The system which generated this result transmitted reference range: 35 - 45 mmHg. The reference range was not used to interpret this result as normal/abnormal. PO2 (test code = 6570086076) 375 See_Comment H [Automated messa ge] The system which generated this result transmitted reference range: 80 - 100 mmHg. The reference range was not used to interpret this result as normal/abnormal. BE (test code = 2111557904) 0.0 See_Comment [Automated messa ge] The system which generated this result transmitted reference range: -3.0 - 3.0 mEq/L. The reference range was not used to interpret this result as normal/abnormal. HCO3 (test code = 2571066958) 25 See_Comment [Automated messa ge] The system which generated this result transmitted reference range: 22 - 26 mEq/L. The reference range was not used to interpret this result as normal/abnormal. %O2HB (test code = 2180960003) 100.0 % 95.0-98.0 H NA (test code = 5169820905) 138 mmol/L 135-145 K+ (test code = 7124023106) 4.2 mmol/L 3.5-5.0 AC CA IONZ (test code = 8388296714) 4.20 mg/dL 4.50-5.30 L GLUCOSE (test code = 8051830291) 200 mg/dL 70-110 H AC Hematocrit (test code = 9328684109) 30 See_Comment L [Automated me ssage] The system which generated this result transmitted reference range: 40 - 54 VOL %. The reference range was not used to interpret this result as normal/abnormal. THB (test code = 2880152966) 10.2 g/dL 13.5-18.0 L AC TC02 (test code = 8899004673) 26 mmol/L See_Comment [Automated messa ge] The system which generated this result transmitted reference range: 23-27 mmol/L. The reference range was not used to interpret this result as normal/abnormal. Lab Interpretation (test code = 31683-9) Abnormal [facility] ACUTE CARE [id number] 18:10:02* Test Item Value Reference Range Interpretation Comme nts PH (test code = 2) 7.44 7.35-7.45 PCO2 (test code = 0288812056) 37 See_Comment [Automated messa ge] The system which generated this result transmitted reference range: 35 - 45 mmHg. The reference range was not used to interpret this result as normal/abnormal. PO2 (test code = 5011598033) 235 See_Comment H [Automated messa ge] The system which generated this result transmitted reference range: 80 - 100 mmHg. The reference range was not used to interpret this result as normal/abnormal. BE (test code = 1974399463) 1.0 See_Comment [Automated messa ge] The system which generated this result transmitted reference range: -3.0 - 3.0 mEq/L. The reference range was not used to interpret this result as normal/abnormal. HCO3 (test code = 5256797831) 25 See_Comment [Automated messa ge] The system which generated this result transmitted reference range: 22 - 26 mEq/L. The reference range was not used to interpret this result as normal/abnormal. %O2HB (test code = 5456404279) 100.0 % 95.0-98.0 H NA (test code = 6046493523) 136 mmol/L 135-145 K+ (test code = 1771125803) 4.7 mmol/L 3.5-5.0 AC CA IONZ (test code = 9606407729) 4.10 mg/dL 4.50-5.30 L GLUCOSE (test code = 0453291588) 259 mg/dL 70-110 H AC Hematocrit (test code = 4967465984) 31 See_Comment L [Automated me ssage] The system which generated this result transmitted reference range: 40 - 54 VOL %. The reference range was not used to interpret this result as normal/abnormal. THB (test code = 3818208984) 10.5 g/dL 13.5-18.0 L AC TC02 (test code = 1744260154) 26 mmol/L See_Comment [Automated messa ge] The system which generated this result transmitted reference range: 23-27 mmol/L. The reference range was not used to interpret this result as normal/abnormal. Lab Interpretation (test code = 42634-6) Abnormal [facility] ACUTE CARE [id number] 18:10:02* Test Item Value Reference Range Interpretation Comme nts PH (test code = 2) 7.35 7.35-7.45 PCO2 (test code = 2270116327) 44 See_Comment [Automated messa ge] The system which generated this result transmitted reference range: 35 - 45 mmHg. The reference range was not used to interpret this result as normal/abnormal. PO2 (test code = 5545457209) 249 See_Comment H [Automated messa ge] The system which generated this result transmitted reference range: 80 - 100 mmHg. The reference range was not used to interpret this result as normal/abnormal. BE (test code = 7953413637) -2.0 See_Comment [Automated messa ge] The system which generated this result transmitted reference range: -3.0 - 3.0 mEq/L. The reference range was not used to interpret this result as normal/abnormal. HCO3 (test code = 7269113424) 24 See_Comment [Automated messa ge] The system which generated this result transmitted reference range: 22 - 26 mEq/L. The reference range was not used to interpret this result as normal/abnormal. %O2HB (test code = 8546708406) 100.0 % 95.0-98.0 H NA (test code = 9571068725) 141 mmol/L 135-145 K+ (test code = 6581792489) 3.7 mmol/L 3.5-5.0 AC CA IONZ (test code = 0746087182) 5.00 mg/dL 4.50-5.30 GLUCOSE (test code = 8479221752) 115 mg/dL 70-110 H AC Hematocrit (test code = 8420671244) 40 See_Comment [Automated me ssage] The system which generated this result transmitted reference range: 40 - 54 VOL %. The reference range was not used to interpret this result as normal/abnormal. THB (test code = 8196960565) 13.6 g/dL 13.5-18.0 AC TC02 (test code = 4095874153) 25 mmol/L See_Comment [Automated messa ge] The system which generated this result transmitted reference range: 23-27 mmol/L. The reference range was not used to interpret this result as normal/abnormal. Lab Interpretation (test code = 49108-6) Abnormal [facility] ACUTE CARE [id number] 18:10:02* Test Item Value Reference Range Interpretation Comme nts PH (test code = 2) 7.29 7.35-7.45 L PCO2 (test code = 1333267154) 47 See_Comment H [Automated messa ge] The system which generated this result transmitted reference range: 35 - 45 mmHg. The reference range was not used to interpret this result as normal/abnormal. PO2 (test code = 7074472704) 287 See_Comment H [Automated messa ge] The system which generated this result transmitted reference range: 80 - 100 mmHg. The reference range was not used to interpret this result as normal/abnormal. BE (test code = 7194937341) -4.0 See_Comment L [Automated messa ge] The system which generated this result transmitted reference range: -3.0 - 3.0 mEq/L. The reference range was not used to interpret this result as normal/abnormal. HCO3 (test code = 5566604623) 23 See_Comment [Automated messa ge] The system which generated this result transmitted reference range: 22 - 26 mEq/L. The reference range was not used to interpret this result as normal/abnormal. %O2HB (test code = 7643365158) 100.0 % 95.0-98.0 H NA (test code = 1773892739) 139 mmol/L 135-145 K+ (test code = 3389834203) 4.3 mmol/L 3.5-5.0 AC CA IONZ (test code = 6926512233) 3.70 mg/dL 4.50-5.30 L GLUCOSE (test code = 1735449148) 139 mg/dL 70-110 H AC Hematocrit (test code = 0512906583) 29 See_Comment L [Automated me ssage] The system which generated this result transmitted reference range: 40 - 54 VOL %. The reference range was not used to interpret this result as normal/abnormal. THB (test code = 5947837885) 9.9 g/dL 13.5-18.0 L AC TC02 (test code = 5206734926) 24 mmol/L See_Comment [Automated messa ge] The system which generated this result transmitted reference range: 23-27 mmol/L. The reference range was not used to interpret this result as normal/abnormal. Lab Interpretation (test code = 82341-6) Abnormal [facility] ACUTE CARE [id number] 18:10:02* Test Item Value Reference Range Interpretation Comme nts PH (test code = 2) 7.38 7.35-7.45 PCO2 (test code = 1767491827) 42 See_Comment [Automated messa ge] The system which generated this result transmitted reference range: 35 - 45 mmHg. The reference range was not used to interpret this result as normal/abnormal. PO2 (test code = 3479177441) 375 See_Comment H [Automated messa ge] The system which generated this result transmitted reference range: 80 - 100 mmHg. The reference range was not used to interpret this result as normal/abnormal. BE (test code = 7812833351) 0.0 See_Comment [Automated messa ge] The system which generated this result transmitted reference range: -3.0 - 3.0 mEq/L. The reference range was not used to interpret this result as normal/abnormal. HCO3 (test code = 3879403968) 25 See_Comment [Automated messa ge] The system which generated this result transmitted reference range: 22 - 26 mEq/L. The reference range was not used to interpret this result as normal/abnormal. %O2HB (test code = 7283014634) 100.0 % 95.0-98.0 H NA (test code = 4597202159) 138 mmol/L 135-145 K+ (test code = 2040654135) 4.2 mmol/L 3.5-5.0 AC CA IONZ (test code = 4435882112) 4.20 mg/dL 4.50-5.30 L GLUCOSE (test code = 0116050715) 200 mg/dL 70-110 H AC Hematocrit (test code = 1742262499) 30 See_Comment L [Automated me ssage] The system which generated this result transmitted reference range: 40 - 54 VOL %. The reference range was not used to interpret this result as normal/abnormal. THB (test code = 1550620490) 10.2 g/dL 13.5-18.0 L AC TC02 (test code = 0010010161) 26 mmol/L See_Comment [Automated messa ge] The system which generated this result transmitted reference range: 23-27 mmol/L. The reference range was not used to interpret this result as normal/abnormal. Lab Interpretation (test code = 39438-0) Abnormal [facility] ACUTE CARE [id number] 18:10:02* Test Item Value Reference Range Interpretation Comme nts PH (test code = 2) 7.44 7.35-7.45 PCO2 (test code = 7950711050) 37 See_Comment [Automated messa ge] The system which generated this result transmitted reference range: 35 - 45 mmHg. The reference range was not used to interpret this result as normal/abnormal. PO2 (test code = 3115135672) 235 See_Comment H [Automated messa ge] The system which generated this result transmitted reference range: 80 - 100 mmHg. The reference range was not used to interpret this result as normal/abnormal. BE (test code = 2408349105) 1.0 See_Comment [Automated messa ge] The system which generated this result transmitted reference range: -3.0 - 3.0 mEq/L. The reference range was not used to interpret this result as normal/abnormal. HCO3 (test code = 3931744542) 25 See_Comment [Automated messa ge] The system which generated this result transmitted reference range: 22 - 26 mEq/L. The reference range was not used to interpret this result as normal/abnormal. %O2HB (test code = 8913000202) 100.0 % 95.0-98.0 H NA (test code = 2174431841) 136 mmol/L 135-145 K+ (test code = 4272630897) 4.7 mmol/L 3.5-5.0 AC CA IONZ (test code = 7913541286) 4.10 mg/dL 4.50-5.30 L GLUCOSE (test code = 9072295111) 259 mg/dL 70-110 H AC Hematocrit (test code = 1631236900) 31 See_Comment L [Automated me ssage] The system which generated this result transmitted reference range: 40 - 54 VOL %. The reference range was not used to interpret this result as normal/abnormal. THB (test code = 6307041576) 10.5 g/dL 13.5-18.0 L AC TC02 (test code = 6016847859) 26 mmol/L See_Comment [Automated messa ge] The system which generated this result transmitted reference range: 23-27 mmol/L. The reference range was not used to interpret this result as normal/abnormal. Lab Interpretation (test code = 07497-8) Abnormal [facility] ACUTE CARE [id number] 18:10:02* Test Item Value Reference Range Interpretation Comme nts PH (test code = 2) 7.35 7.35-7.45 PCO2 (test code = 1558008887) 44 See_Comment [Automated messa ge] The system which generated this result transmitted reference range: 35 - 45 mmHg. The reference range was not used to interpret this result as normal/abnormal. PO2 (test code = 4434084679) 249 See_Comment H [Automated messa ge] The system which generated this result transmitted reference range: 80 - 100 mmHg. The reference range was not used to interpret this result as normal/abnormal. BE (test code = 5609240054) -2.0 See_Comment [Automated messa ge] The system which generated this result transmitted reference range: -3.0 - 3.0 mEq/L. The reference range was not used to interpret this result as normal/abnormal. HCO3 (test code = 5398814308) 24 See_Comment [Automated messa ge] The system which generated this result transmitted reference range: 22 - 26 mEq/L. The reference range was not used to interpret this result as normal/abnormal. %O2HB (test code = 0708023024) 100.0 % 95.0-98.0 H NA (test code = 5568035748) 141 mmol/L 135-145 K+ (test code = 3859971260) 3.7 mmol/L 3.5-5.0 AC CA IONZ (test code = 0451374094) 5.00 mg/dL 4.50-5.30 GLUCOSE (test code = 9459278377) 115 mg/dL 70-110 H AC Hematocrit (test code = 0287891477) 40 See_Comment [Automated me ssage] The system which generated this result transmitted reference range: 40 - 54 VOL %. The reference range was not used to interpret this result as normal/abnormal. THB (test code = 3119200177) 13.6 g/dL 13.5-18.0 AC TC02 (test code = 8483097344) 25 mmol/L See_Comment [Automated messa ge] The system which generated this result transmitted reference range: 23-27 mmol/L. The reference range was not used to interpret this result as normal/abnormal. Lab Interpretation (test code = 90011-0) Abnormal [facility] ACUTE CARE [id number] 18:10:02* Test Item Value Reference Range Interpretation Comme nts PH (test code = 2) 7.29 7.35-7.45 L PCO2 (test code = 6033280593) 47 See_Comment H [Automated messa ge] The system which generated this result transmitted reference range: 35 - 45 mmHg. The reference range was not used to interpret this result as normal/abnormal. PO2 (test code = 0029185743) 287 See_Comment H [Automated messa ge] The system which generated this result transmitted reference range: 80 - 100 mmHg. The reference range was not used to interpret this result as normal/abnormal. BE (test code = 9141063432) -4.0 See_Comment L [Automated messa ge] The system which generated this result transmitted reference range: -3.0 - 3.0 mEq/L. The reference range was not used to interpret this result as normal/abnormal. HCO3 (test code = 1342869380) 23 See_Comment [Automated messa ge] The system which generated this result transmitted reference range: 22 - 26 mEq/L. The reference range was not used to interpret this result as normal/abnormal. %O2HB (test code = 2724074490) 100.0 % 95.0-98.0 H NA (test code = 7815778343) 139 mmol/L 135-145 K+ (test code = 8225511494) 4.3 mmol/L 3.5-5.0 AC CA IONZ (test code = 9812789342) 3.70 mg/dL 4.50-5.30 L GLUCOSE (test code = 6077066104) 139 mg/dL 70-110 H AC Hematocrit (test code = 3832670754) 29 See_Comment L [Automated me ssage] The system which generated this result transmitted reference range: 40 - 54 VOL %. The reference range was not used to interpret this result as normal/abnormal. THB (test code = 1639229783) 9.9 g/dL 13.5-18.0 L AC TC02 (test code = 8448467070) 24 mmol/L See_Comment [Automated messa ge] The system which generated this result transmitted reference range: 23-27 mmol/L. The reference range was not used to interpret this result as normal/abnormal. Lab Interpretation (test code = 37642-0) Abnormal [facility] ACUTE CARE [id number] 18:10:02* Test Item Value Reference Range Interpretation Comme nts PH (test code = 2) 7.38 7.35-7.45 PCO2 (test code = 8072295338) 42 See_Comment [Automated messa ge] The system which generated this result transmitted reference range: 35 - 45 mmHg. The reference range was not used to interpret this result as normal/abnormal. PO2 (test code = 6178232515) 375 See_Comment H [Automated messa ge] The system which generated this result transmitted reference range: 80 - 100 mmHg. The reference range was not used to interpret this result as normal/abnormal. BE (test code = 6245530360) 0.0 See_Comment [Automated messa ge] The system which generated this result transmitted reference range: -3.0 - 3.0 mEq/L. The reference range was not used to interpret this result as normal/abnormal. HCO3 (test code = 9054706370) 25 See_Comment [Automated messa ge] The system which generated this result transmitted reference range: 22 - 26 mEq/L. The reference range was not used to interpret this result as normal/abnormal. %O2HB (test code = 4630604494) 100.0 % 95.0-98.0 H NA (test code = 5258541050) 138 mmol/L 135-145 K+ (test code = 7700348749) 4.2 mmol/L 3.5-5.0 AC CA IONZ (test code = 1574920263) 4.20 mg/dL 4.50-5.30 L GLUCOSE (test code = 8388333411) 200 mg/dL 70-110 H AC Hematocrit (test code = 7934060360) 30 See_Comment L [Automated me ssage] The system which generated this result transmitted reference range: 40 - 54 VOL %. The reference range was not used to interpret this result as normal/abnormal. THB (test code = 8913682268) 10.2 g/dL 13.5-18.0 L AC TC02 (test code = 0329917886) 26 mmol/L See_Comment [Automated messa ge] The system which generated this result transmitted reference range: 23-27 mmol/L. The reference range was not used to interpret this result as normal/abnormal. Lab Interpretation (test code = 11050-2) Abnormal [facility] ACUTE CARE [id number] 18:10:02* Test Item Value Reference Range Interpretation Comme nts PH (test code = 2) 7.44 7.35-7.45 PCO2 (test code = 6907292840) 37 See_Comment [Automated messa ge] The system which generated this result transmitted reference range: 35 - 45 mmHg. The reference range was not used to interpret this result as normal/abnormal. PO2 (test code = 3163267347) 235 See_Comment H [Automated messa ge] The system which generated this result transmitted reference range: 80 - 100 mmHg. The reference range was not used to interpret this result as normal/abnormal. BE (test code = 3124708456) 1.0 See_Comment [Automated messa ge] The system which generated this result transmitted reference range: -3.0 - 3.0 mEq/L. The reference range was not used to interpret this result as normal/abnormal. HCO3 (test code = 8807421517) 25 See_Comment [Automated messa ge] The system which generated this result transmitted reference range: 22 - 26 mEq/L. The reference range was not used to interpret this result as normal/abnormal. %O2HB (test code = 0168671883) 100.0 % 95.0-98.0 H NA (test code = 9229151799) 136 mmol/L 135-145 K+ (test code = 8952430274) 4.7 mmol/L 3.5-5.0 AC CA IONZ (test code = 3068408660) 4.10 mg/dL 4.50-5.30 L GLUCOSE (test code = 5798000209) 259 mg/dL 70-110 H AC Hematocrit (test code = 6102435923) 31 See_Comment L [Automated me ssage] The system which generated this result transmitted reference range: 40 - 54 VOL %. The reference range was not used to interpret this result as normal/abnormal. THB (test code = 9725701148) 10.5 g/dL 13.5-18.0 L AC TC02 (test code = 1378997182) 26 mmol/L See_Comment [Automated messa ge] The system which generated this result transmitted reference range: 23-27 mmol/L. The reference range was not used to interpret this result as normal/abnormal. Lab Interpretation (test code = 18526-6) [facility] is [facility] type and screen. ONCE [id number] 12:32:00* Test Item Value Reference Range Interpretation Comme nts ABO & RH (test code = 20) O POSITIVE IAT (test code = 1185) [facility] This is a [facility]-surgical type and screen. ONCE [id number] 12:32:00* Test Item Value Reference Range Interpretation Comme nts ABO & RH (test code = 20) O POSITIVE IAT (test code = 1185) [facility] This is a [facility]-surgical type and screen. ONCE [id number] 12:32:00* Test Item Value Reference Range Interpretation Comme nts ABO & RH (test code = 20) O POSITIVE IAT (test code = 1185) [facility] [id number] 22:13:13* Test Item Value Reference Range Interpretation Comme nts HCV Ab (test code = 37286-7) Negative HCV Semi-Quantitative (test code = 86598-0) 0.16 [facility] [id number] 22:13:13* Test Item Value Reference Range Interpretation Comme nts HCV Ab (test code = 92721-5) Negative HCV Semi-Quantitative (test code = 83070-4) 0.16 [facility] [id number] 21:53:09 * Test Item Value Reference Range Interpretation Comme nts TSH (test code = 7157448907) 2.86 See_Comment [Automated messa ge] The system which generated this result transmitted reference range: 0.45 - 4.70 mIU/L. The reference range was not used to interpret this result as normal/abnormal. Lab Interpretation (test code = 23067-9) Normal [facility] [id number] 21:53:09 * Test Item Value Reference Range Interpretation Comme nts TSH (test code = 2908656370) 2.86 See_Comment [Automated messa ge] The system which generated this result transmitted reference range: 0.45 - 4.70 mIU/L. The reference range was not used to interpret this result as normal/abnormal. Lab Interpretation (test code = 54587-6) [facility], [id number] 21:47:09* Test Item Value Reference Range Interpretation Comme nts VIT D 25OH (test code = 53296-9) 25 ng/mL 25-80 MIKAYLA (test code = MIKAYLA) Deficiency: <20 ng/mLInsufficiency : 20-24 ng/mLOptimal: 25-80 ng/mL Lab Interpretation (test code = 37631-3) [facility], [id number] 21:47:09* Test Item Value Reference Range Interpretation Comme nts VIT D 25OH (test code = 43136-2) 25 ng/mL 25-80 MIKAYLA (test code = MIKAYLA) Deficiency: <20 ng/mLInsufficiency : 20-24 ng/mLOptimal: 25-80 ng/mL Lab Interpretation (test code = 96428-9) Normal [facility] [id number] 21:39:06* Test Item Value Reference Range Interpretation Comme nts FREE T4 (test code = 7949093894) 1.06 See_Comment [Automated messa ge] The system which generated this result transmitted reference range: 0.78 - 2.20 ng/dL:. The reference range was not used to interpret this result as normal/abnormal. Lab Interpretation (test code = 80301-2) [facility] [id number] 21:39:06* Test Item Value Reference Range Interpretation Comme nts FREE T3 (test code = 6507085303) 4.06 pg/mL 2.77-5.27 Lab Interpretation (test cod e = 36679-1) Normal [facility] [id number] 21:39:06* Test Item Value Reference Range Interpretation Comme nts FREE T4 (test code = 0078770204) 1.06 See_Comment [Automated messa ge] The system which generated this result transmitted reference range: 0.78 - 2.20 ng/dL:. The reference range was not used to interpret this result as normal/abnormal. Lab Interpretation (test code = 00085-3) Normal [facility] [id number] 21:39:06* Test Item Value Reference Range Interpretation Comme nts FREE T3 (test code = 0604964605) 4.06 pg/mL 2.77-5.27 Lab Interpretation (test cod e = 97374-7) [facility]. METABOLIC PANEL (68602)2023-01-17 21:20:41* Test Item Value Reference Range Interpretation Comme nts NA (test code = 3326302736) 141 mmol/L 135-145 K (test code = 9674387217) 3.6 mmol/L 3.5-5.0 CL (test code = 3985922110) 100 mmol/L 98-108 CO2 TOTAL (test code = 1796986411) 22 mmol/L 23-31 L AGAP (test code = 1007579211) 19 2-16 H BUN (test code = 6388854503) 56 mg/dL 7-23 H GLUCOSE (test code = 3486354039) 119 mg/dL 70-110 H CREATININE (test code = 8435723442) 2.61 mg/dL 0.60-1.25 H TOTAL BILI (test code = 5851664921) 0.7 mg/dL 0.1-1.1 CALCIUM (test code = 5784669204) 9.5 mg/dL 8.6-10.6 T PROTEIN (test code = 9373953318) 7.9 g/dL 6.3-8.2 ALBUMIN (test code = 1826152994) 4.5 g/dL 3.5-5.0 ALK PHOS (test code = 6260805780) 65 U/L 34-122 ALTv (test code = 1742-6) 30 U/L 5-50 AST(SGOT) (test code = 7971912181) 33 U/L 13-40 eGFR (test code = 0905546238) 25.1 mL/min/1.73m2 MIKAYLA (test code = MIKAYLA) Association of [...] or abnormalities in imaging tests). Lab Interpretation (test code = 59315-7) [facility] (53094)(TOTAL CHOLESTEROL, TRIGLYCERIDES, HDL)2023-01-17 21:20:41* Test Item Value Reference Range Interpretation Comme nts CHOL (test code = 8611657848) 106 mg/dL 120-200 L HDL (test code = 1644179395) 37 mg/dL >=40 L HDLC RATIO (test code = 4880633403) 2.9 <=5.0 TRIG (test code = 0222182618) 130 mg/dL 30-170 LDL CHOL (test code = 66273-5) 43 mg/dL <=160 VLDL (test code = 2297065624) 26 mg/dL 5-60 Lab Interpretation (test cod e = 63687-1) [facility]OLIC [facility] (80648)2023-01-17 21:20:41* Test Item Value Reference Range Interpretation Comme nts NA (test code = 8459797659) 141 mmol/L 135-145 K (test code = 7188907277) 3.6 mmol/L 3.5-5.0 CL (test code = 8370625880) 100 mmol/L 98-108 CO2 TOTAL (test code = 4164681510) 22 mmol/L 23-31 L AGAP (test code = 4152618138) 19 2-16 H BUN (test code = 4075874912) 56 mg/dL 7-23 H GLUCOSE (test code = 9130310375) 119 mg/dL 70-110 H CREATININE (test code = 6108537383) 2.61 mg/dL 0.60-1.25 H TOTAL BILI (test code = 8043481088) 0.7 mg/dL 0.1-1.1 CALCIUM (test code = 6722434097) 9.5 mg/dL 8.6-10.6 T PROTEIN (test code = 6081956571) 7.9 g/dL 6.3-8.2 ALBUMIN (test code = 4200653882) 4.5 g/dL 3.5-5.0 ALK PHOS (test code = 7480638427) 65 U/L 34-122 ALTv (test code = 1742-6) 30 U/L 5-50 AST(SGOT) (test code = 7794315596) 33 U/L 13-40 eGFR (test code = 1946451281) 25.1 mL/min/1.73m2 MIKAYLA (test code = MIKAYLA) Association of [...] or abnormalities in imaging tests). Lab Interpretation (test code = 15580-9) [facility]TOTAL CHOLESTEROL, TRIGLYCERIDES, HDL)2023-01-17 21:20:41* Test Item Value Reference Range Interpretation Comme nts CHOL (test code = 3143961124) 106 mg/dL 120-200 L HDL (test code = 6864191098) 37 mg/dL >=40 L HDLC RATIO (test code = 6626916923) 2.9 <=5.0 TRIG (test code = 3206714389) 130 mg/dL 30-170 LDL CHOL (test code = 34437-3) 43 mg/dL <=160 VLDL (test code = 3710907326) 26 mg/dL 5-60 Lab Interpretation (test cod e = 33452-9) [facility]C)2023-01-17 20:12:16* Test Item Value Reference Range Interpretation Comme nts HGB A1C (test code = 4548-4) 7.6 % 4.0-5.7 H MIKAYLA (test code = MIKAYLA) Reference RangesNormal: <5.7%Prediabetes: 5.7 - 6.4%Diabetes: > 6.5% Lab Interpretation (test code = 27069-2) [facility]2023-01-17 20:12:16* Test Item Value Reference Range Interpretation Comme nts HGB A1C (test code = 4548-4) 7.6 % 4.0-5.7 H MIKAYLA (test code = MIKAYLA) Reference RangesNormal: <5.7%Prediabetes: 5.7 - 6.4%Diabetes: > 6.5% Lab Interpretation (test code = 98742-8) [facility]2023-01-17 20:12:16* Test Item Value Reference Range Interpretation Comme nts HGB A1C (test code = 4548-4) 7.6 % 4.0-5.7 H MIKAYLA (test code = MIKAYLA) Reference RangesNormal: <5.7%Prediabetes: 5.7 - 6.4%Diabetes: > 6.5% Lab Interpretation (test code = 65321-2) [facility]normal [facility]2023-01-17 20:12:16* Test Item Value Reference Range Interpretation Comme nts HGB A1C (test code = 4548-4) 7.6 % 4.0-5.7 H MIKAYLA (test code = MIKAYLA) Reference RangesNormal: <5.7%Prediabetes: 5.7 - 6.4%Diabetes: > 6.5% Lab Interpretation (test code = 31957-7) [facility] [id number] 18:53:31* Test Item Value Reference Range Interpretation Comme nts WBC (test code = 6690-2) 9.99 See_Comment [Automated messa ge] The system which generated this result transmitted reference range: 4.20 - 10.70 10*3/?L. The reference range was not used to interpret this result as normal/abnormal. RBC (test code = 789-8) 5.48 See_Comment [Automated [employer] ge] The system which generated this result transmitted reference range: 4.26 - 5.52 10*6/?L. The reference range was not used to interpret this result as normal/abnormal. HGB (test code = 718-7) 15.0 g/dL 12.2-16.4 HCT (test code = 4544-3) 47.0 % 38.4-49.3 MCV (test code = 787-2) 85.8 fL 81.7-95.6 MCH (test code = 785-6) 27.4 pg 26.1-32.7 MCHC (test code = 786-4) 31.9 g/dL 31.2-35.0 RDW-SD (test code = 12287-4) 47.6 fL 38.5-51.6 RDW-CV (test code = 788-0) 15.3 % 12.1-15.4 PLT (test code = 777-3) 182 See_Comment [Automated messa ge] The system which generated this result transmitted reference range: 150 - 328 10*3/?L. The reference range was not used to interpret this result as normal/abnormal. MPV (test code = 99279-2) 11.0 fL 9.8-13.0 NRBC/100 WBC (test code = 4781549580) 0.0 See_Comment [Automated me ssage] The system which generated this result transmitted reference range: 0.0 - 10.0 /100 WBCs. The reference range was not used to interpret this result as normal/abnormal. NRBC x10^3 (test code = 6280076555) See_Comment [Automated me ssage] The system which generated this result transmitted reference range: 10*3/?L. The reference range was not used to interpret this result as normal/abnormal. GRAN MAT (NEUT) % (test code = 770-8) 67.2 % IMM GRAN % (test code = 5890562270) 0.40 % LYMPH % (test code = 736-9) 21.2 % MONO % (test code = 5905-5) 8.4 % EOS % (test code = 713-8) 2.6 % BASO % (test code = 706-2) 0.2 % GRAN MAT x10^3(ANC) (test code = 3517120586) 6.71 10*3/uL 1.99-6.95 IMM GRAN x10^3 (test code = 8866108826) 0.04 10*3/uL 0.00-0.06 LYMPH x10^3 (test code = 731-0) 2.12 10*3/uL 1.09-3.23 MONO x10^3 (test code = 742-7) 0.84 10*3/uL 0.36-1.02 EOS x10^3 (test code = 711-2) 0.26 10*3/uL 0.06-0.53 BASO x10^3 (test code = 704-7) 0.01-0.09 [facility] WITH [id number] 18:53:31* Test Item Value Reference Range Interpretation Comme nts WBC (test code = 6690-2) 9.99 See_Comment [Automated messa ge] The system which generated this result transmitted reference range: 4.20 - 10.70 10*3/?L. The reference range was not used to interpret this result as normal/abnormal. RBC (test code = 789-8) 5.48 See_Comment [Automated messa ge] The system which generated this result transmitted reference range: 4.26 - 5.52 10*6/?L. The reference range was not used to interpret this result as normal/abnormal. HGB (test code = 718-7) 15.0 g/dL 12.2-16.4 HCT (test code = 4544-3) 47.0 % 38.4-49.3 MCV (test code = 787-2) 85.8 fL 81.7-95.6 MCH (test code = 785-6) 27.4 pg 26.1-32.7 MCHC (test code = 786-4) 31.9 g/dL 31.2-35.0 RDW-SD (test code = 51904-9) 47.6 fL 38.5-51.6 RDW-CV (test code = 788-0) 15.3 % 12.1-15.4 PLT (test code = 777-3) 182 See_Comment [Automated messa ge] The system which generated this result transmitted reference range: 150 - 328 10*3/?L. The reference range was not used to interpret this result as normal/abnormal. MPV (test code = 77612-7) 11.0 fL 9.8-13.0 NRBC/100 WBC (test code = 1256574180) 0.0 See_Comment [Automated [place] ssage] The system which generated this result transmitted reference range: 0.0 - 10.0 /100 WBCs. The reference range was not used to interpret this result as normal/abnormal. NRBC x10^3 (test code = 6013490556) See_Comment [Automated me ssage] The system which generated this result transmitted reference range: 10*3/?L. The reference range was not used to interpret this result as normal/abnormal. GRAN MAT (NEUT) % (test code = 770-8) 67.2 % IMM GRAN % (test code = 4946989725) 0.40 % LYMPH % (test code = 736-9) 21.2 % MONO % (test code = 5905-5) 8.4 % EOS % (test code = 713-8) 2.6 % BASO % (test code = 706-2) 0.2 % GRAN MAT x10^3(ANC) (test code = 6676012273) 6.71 10*3/uL 1.99-6.95 IMM GRAN x10^3 (test code = 3228897324) 0.04 10*3/uL 0.00-0.06 LYMPH x10^3 (test code = 731-0) 2.12 10*3/uL 1.09-3.23 MONO x10^3 (test code = 742-7) 0.84 10*3/uL 0.36-1.02 EOS x10^3 (test code = 711-2) 0.26 10*3/uL 0.06-0.53 BASO x10^3 (test code = 704-7) 0.01-0.09 [facility] HEMOGLOBIN A1C [id number] 16:39:00* Test Item Value Reference Range Interpretation Comme [facility] POCT HBA1C (test code = 4548-4) 7.7 % 4-6 A Lab Interpretation (test cod e = 59308-3) Abnormal [facility] HEMOGLOBIN A1C [id number] 16:39:00* Test Item Value Reference Range Interpretation Comme [facility] POCT HBA1C (test code = 4548-4) 7.7 % 4-6 A Lab Interpretation (test cod e = 34823-2) Abnormal [facility] HEMOGLOBIN A1C [id number] 16:39:00* Test Item Value Reference Range Interpretation Comme [facility] POCT HBA1C (test code = 4548-4) 7.7 % 4-6 A Lab Interpretation (test cod e = 34347-8) Abnormal [facility] HEMOGLOBIN A1C [id number] 16:39:00* Test Item Value Reference Range Interpretation Comme nts POCT HBA1C (test code = 4548-4) 7.7 % 4-6 A Lab Interpretation (test cod e = 84760-9) Abnormal [facility] GLUCOSE (AUTOMATED)2022-10-05 23:19:34* Test Item Value Reference Range Interpretation Comme nts POCT GLU (test code = 5573712934) 208 mg/dL 70-110 H Lab Interpretation (test cod e = 05330-8) Abnormal [facility] GLUCOSE (AUTOMATED)2022-10-05 17:36:07* Test Item Value Reference Range Interpretation Comme nts POCT GLU (test code = 3712444288) 275 mg/dL 70-110 H Lab Interpretation (test cod e = 00545-5) Abnormal [facility] GLUCOSE (AUTOMATED)2022-10-05 14:33:50* Test Item Value Reference Range Interpretation Comme nts POCT GLU (test code = 6231313708) 150 mg/dL 70-110 H Lab Interpretation (test cod e = 50004-7) Abnormal [facility] GLUCOSE (AUTOMATED)2022-10-05 10:17:25* Test Item Value Reference Range Interpretation Comme nts POCT GLU (test code = 8570709676) 87 mg/dL 70-110 Lab Interpretation (test cod e = 53714-5) Normal [facility] GLUCOSE (AUTOMATED)2022-10-05 06:35:37* Test Item Value Reference Range Interpretation Comme nts POCT GLU (test code = 7886127379) 90 mg/dL 70-110 Lab Interpretation (test cod e = 79990-1) Normal [facility] GLUCOSE (AUTOMATED)2022-10-05 06:10:08* Test Item Value Reference Range Interpretation Comme nts POCT GLU (test code = 9446725187) 70 mg/dL 70-110 Lab Interpretation (test cod e = 20670-6) Normal [facility] GLUCOSE (AUTOMATED)2022-10-05 01:46:32* Test Item Value Reference Range Interpretation Comme nts POCT GLU (test code = 2013579645) 165 mg/dL 70-110 H Lab Interpretation (test cod e = 13955-5) Abnormal [facility] GLUCOSE (AUTOMATED)2022-10-04 22:53:37* Test Item Value Reference Range Interpretation Comme nts POCT GLU (test code = 5563852542) 256 mg/dL 70-110 H Lab Interpretation (test cod e = 76117-7) Abnormal [facility] GLUCOSE (AUTOMATED)2022-10-04 21:59:58* Test Item Value Reference Range Interpretation Comme nts POCT GLU (test code = 4472284313) 260 mg/dL 70-110 H Lab Interpretation (test cod e = 41837-7) Abnormal [facility] GLUCOSE (AUTOMATED)2022-10-04 17:46:42* Test Item Value Reference Range Interpretation Comme nts POCT GLU (test code = 0039433437) 308 mg/dL 70-110 H Lab Interpretation (test cod e = 96091-6) [facility] [id number] 16:22:40* Test Item Value Reference Range Interpretation Comme nts TROPONIN I (test code = 9881621405) 0.046 ng/mL <=0.034 H MIKAYLA (test code = MIKAYLA) Reference (Normal) [...] patient's use of biotin. Lab Interpretation (test code = 62900-5) Abnormal [facility] GLUCOSE (AUTOMATED)2022-10-04 13:52:03* Test Item Value Reference Range Interpretation Comme nts POCT GLU (test code = 7463187392) 200 mg/dL 70-110 H Lab Interpretation (test cod e = 59501-8) Abnormal [facility] GLUCOSE (AUTOMATED)2022-10-04 10:04:06* Test Item Value Reference Range Interpretation Comme nts POCT GLU (test code = 1342096280) 152 mg/dL 70-110 H Lab Interpretation (test cod e = 27244-6) Abnormal [facility] GLUCOSE (AUTOMATED)2022-10-04 06:04:14* Test Item Value Reference Range Interpretation Comme nts POCT GLU (test code = 0600231646) 229 mg/dL 70-110 H Lab Interpretation (test cod e = 99199-7) Abnormal [facility] GLUCOSE (AUTOMATED)2022-10-04 03:35:36* Test Item Value Reference Range Interpretation Comme nts POCT GLU (test code = 8081001955) 261 mg/dL 70-110 H Lab Interpretation (test cod e = 16126-1) Abnormal [facility] GLUCOSE (AUTOMATED)2022-10-03 22:23:59* Test Item Value Reference Range Interpretation Comme nts POCT GLU (test code = 0370852571) 249 mg/dL 70-110 H Lab Interpretation (test cod e = 88771-2) Abnormal [facility] GLUCOSE (AUTOMATED)2022-10-03 17:50:25* Test Item Value Reference Range Interpretation Comme nts POCT GLU (test code = 6152145722) 253 mg/dL 70-110 H Lab Interpretation (test cod e = 14387-7) Abnormal [facility] GLUCOSE (AUTOMATED)2022-10-03 14:31:48* Test Item Value Reference Range Interpretation Comme nts POCT GLU (test code = 5956025472) 70-110 HH Notified Provide r Lab Interpretation (test code = 31600-8) Abnormal [facility] GLUCOSE (AUTOMATED)2022-10-03 13:56:32* Test Item Value Reference Range Interpretation Comme nts POCT GLU (test code = 4382516287) 152 mg/dL 70-110 H Lab Interpretation (test cod e = 93461-3) Abnormal [facility] WITH [id number] 10:50:21* Test Item Value Reference Range Interpretation Comme nts WBC (test code = 6690-2) 8.51 See_Comment [Automated messa ge] The system which generated this result transmitted reference range: 4.20 - 10.70 10*3/?L. The reference range was not used to interpret this result as normal/abnormal. RBC (test code = 789-8) 6.06 See_Comment H [Automated [employer]] The system which generated this result transmitted reference range: 4.26 - 5.52 10*6/?L. The reference range was not used to interpret this result as normal/abnormal. HGB (test code = 718-7) 14.7 g/dL 12.2-16.4 HCT (test code = 4544-3) 45.2 % 38.4-49.3 MCV (test code = 787-2) 74.6 fL 81.7-95.6 L MCH (test code = 785-6) 24.3 pg 26.1-32.7 L MCHC (test code = 786-4) 32.5 g/dL 31.2-35.0 RDW-SD (test code = 57708-4) 44.2 fL 38.5-51.6 RDW-CV (test code = 788-0) 16.9 % 12.1-15.4 H PLT (test code = 777-3) 165 See_Comment [Automated [employer]] The system which generated this result transmitted reference range: 150 - 328 10*3/?L. The reference range was not used to interpret this result as normal/abnormal. MPV (test code = 93951-8) Not Measured IPF % (test code = 6385617991) 11.4 % 1.2-10.7 H Platelet count measured by fluorescence method. NRBC/100 WBC (test code = 0344876620) 0.0 See_Comment [Automated [employer]] The system which generated this result transmitted reference range: 0.0 - 10.0 /100 WBCs. The reference range was not used to interpret this result as normal/abnormal. NRBC x10^3 (test code = 8633973645) See_Comment [Automated [employer]] The system which generated this result transmitted reference range: 10*3/?L. The reference range was not used to interpret this result as normal/abnormal. GRAN MAT (NEUT) % (test code = 770-8) 60.0 % IMM GRAN % (test code = 5631676365) 0.40 % LYMPH % (test code = 736-9) 28.8 % MONO % (test code = 5905-5) 6.6 % EOS % (test code = 713-8) 3.8 % BASO % (test code = 706-2) 0.4 % GRAN MAT x10^3(ANC) (test code = 3133005729) 5.12 10*3/uL 1.99-6.95 IMM GRAN x10^3 (test code = 2744782684) 0.03 10*3/uL 0.00-0.06 LYMPH x10^3 (test code = 731-0) 2.45 10*3/uL 1.09-3.23 MONO x10^3 (test code = 742-7) 0.56 10*3/uL 0.36-1.02 EOS x10^3 (test code = 711-2) 0.32 10*3/uL 0.06-0.53 BASO x10^3 (test code = 704-7) 0.03 10*3/uL 0.01-0.09 BRADLEY CELLS (test code = 7790-9) 2+ See_Comment A [Automated messa ge] The system which generated this result transmitted reference range: (none). The reference range was not used to interpret this result as normal/abnormal. GIANT PLATELETS (test code = 5908-9) Present See_Comment A [Automated messa ge] The system which generated this result transmitted reference range: (none). The reference range was not used to interpret this result as normal/abnormal. Lab Interpretation (test code = 54582-4) Abnormal [facility] METABOLIC PANEL (NA, K, CL, CO2, GLUCOSE, BUN, CREATININE, CA)2022-10-03 10:31:54* Test Item Value Reference Range Interpretation Comme nts NA (test code = 8899138135) 128 mmol/L 135-145 L K (test code = 5091359701) 4.1 mmol/L 3.5-5.0 CL (test code = 7232801224) 93 mmol/L 98-108 L CO2 TOTAL (test code = 6904882588) 28 mmol/L 23-31 AGAP (test code = 4704696519) 7 2-16 BUN (test code = 3603368551) 63 mg/dL 7-23 H GLUCOSE (test code = 3240427219) 186 mg/dL 70-110 H CREATININE (test code = 0174444813) 2.73 mg/dL 0.60-1.25 H CALCIUM (test code = 2571074414) 8.6 mg/dL 8.6-10.6 eGFR (test code = 1258826551) 23.9 mL/min/1.73m2 MIKAYLA (test code = MIKAYLA) Association of [...] or abnormalities in imaging tests). Lab Interpretation (test code = 82557-6) [facility]:31:54* Test Item Value Reference Range Interpretation Comme nts MAGNESIUM (test code = 1896740516) 2.2 mg/dL 1.7-2.4 Lab Interpretation (test cod e = 36751-1) Normal [facility] GLUCOSE (AUTOMATED)2022-10-03 10:10:23* Test Item Value Reference Range Interpretation Comme [facility] POCT GLU (test code = 9967170739) 170 mg/dL 70-110 H Lab Interpretation (test cod e = 71266-1) Abnormal [facility] Metabolic Panel (Na, K, Cl, CO2, Glucose, BUN, Creatinine, Ca)2022-10-03 08:55:56* Test Item Value Reference Range Interpretation Comme [facility] NA (test code = 1605911613) 126 mmol/L 135-145 L K (test code = 5205587993) 4.3 mmol/L 3.5-5.0 CL (test code = 1330277349) 92 mmol/L 98-108 L CO2 TOTAL (test code = 8235644560) 27 mmol/L 23-31 AGAP (test code = 1741394697) 7 2-16 BUN (test code = 9355268103) 62 mg/dL 7-23 H GLUCOSE (test code = 8324382649) 246 mg/dL 70-110 H CREATININE (test code = 9490139596) 2.60 mg/dL 0.60-1.25 H CALCIUM (test code = 3197291351) 8.4 mg/dL 8.6-10.6 L eGFR (test code = 1640551804) 25.3 mL/min/1.73m2 MIKAYLA (test code = MIKAYLA) Association of [...] or abnormalities in imaging tests). Lab Interpretation (test code = 32189-9) Abnormal [facility] GLUCOSE (AUTOMATED)2022-10-03 06:25:40* Test Item Value Reference Range Interpretation Comme [facility] POCT GLU (test code = 6823738549) 239 mg/dL 70-110 H Lab Interpretation (test cod e = 91006-5) Abnormal [facility] GLUCOSE (AUTOMATED)2022-10-03 03:29:18* Test Item Value Reference Range Interpretation Comme [facility] POCT GLU (test code = 0734593681) 184 mg/dL 70-110 H Lab Interpretation (test cod e = 60685-2) Abnormal [facility] Metabolic Panel (Na, K, Cl, CO2, Glucose, BUN, Creatinine, Ca)2022-10-03 02:39:56* Test Item Value Reference Range Interpretation Comme [facility] NA (test code = 6173483815) 129 mmol/L 135-145 L K (test code = 1175807643) 4.0 mmol/L 3.5-5.0 CL (test code = 7848068166) 92 mmol/L 98-108 L CO2 TOTAL (test code = 3714786436) 30 mmol/L 23-31 AGAP (test code = 6053637283) 7 2-16 BUN (test code = 8562841769) 63 mg/dL 7-23 H GLUCOSE (test code = 8774336278) 194 mg/dL 70-110 H CREATININE (test code = 2099269660) 2.70 mg/dL 0.60-1.25 H CALCIUM (test code = 4038079503) 8.6 mg/dL 8.6-10.6 eGFR (test code = 1702633772) 24.2 mL/min/1.73m2 MIKAYLA (test code = MIKAYLA) Association of [...] or abnormalities in imaging tests). Lab Interpretation (test code = 85293-0) [facility] Whole [id number] 02:22:47* Test Item Value Reference Range Interpretation Comme nts LACTIC ACID (test code = 4679262696) 2.75 mmol/L 0.50-2.20 H Lab Interpretation (test cod e = 18443-1) Abnormal [facility] GLUCOSE (AUTOMATED)2022-10-03 02:07:29* Test Item Value Reference Range Interpretation Comme nts POCT GLU (test code = 1255140765) 189 mg/dL 70-110 H Lab Interpretation (test cod e = 54898-1) Abnormal [facility] GLUCOSE (AUTOMATED)2022-10-03 01:07:57* Test Item Value Reference Range Interpretation Comme nts POCT GLU (test code = 7869910362) 177 mg/dL 70-110 H Lab Interpretation (test cod e = 44789-1) Abnormal [facility] GLUCOSE (AUTOMATED)2022-10-03 00:10:57* Test Item Value Reference Range Interpretation Comme nts POCT GLU (test code = 1627387885) 250 mg/dL 70-110 H Lab Interpretation (test cod e = 75537-7) Abnormal [facility] GLUCOSE (AUTOMATED)2022-10-02 22:56:27* Test Item Value Reference Range Interpretation Comme nts POCT GLU (test code = 4279540353) 79 mg/dL 70-110 Lab Interpretation (test cod e = 10854-3) Normal [facility] GLUCOSE (AUTOMATED)2022-10-02 21:59:23* Test Item Value Reference Range Interpretation Comme nts POCT GLU (test code = 4938895187) 253 mg/dL 70-110 H Notified Provide r Lab Interpretation (test code = 86487-1) Abnormal [facility] GLUCOSE (AUTOMATED)2022-10-02 21:14:16* Test Item Value Reference Range Interpretation Comme nts POCT GLU (test code = 3959801604) 357 mg/dL 70-110 H Lab Interpretation (test cod e = 36047-8) Abnormal [facility] GLUCOSE (AUTOMATED)2022-10-02 20:24:20* Test Item Value Reference Range Interpretation Comme nts POCT GLU (test code = 5255456442) 452 mg/dL 70-110 HH Notified Provide r Lab Interpretation (test code = 06432-0) Abnormal [facility] Metabolic Panel (Na, K, Cl, CO2, Glucose, BUN, Creatinine, Ca)2022-10-02 19:25:47* Test Item Value Reference Range Interpretation Comme nts NA (test code = 9248456444) 125 mmol/L 135-145 L K (test code = 0915663732) 3.3 mmol/L 3.5-5.0 L CL (test code = 3028713002) 88 mmol/L 98-108 L CO2 TOTAL (test code = 7114044974) 27 mmol/L 23-31 AGAP (test code = 1445653788) 10 2-16 BUN (test code = 5122382905) 62 mg/dL 7-23 H GLUCOSE (test code = 8418735833) 476 mg/dL 70-110 HH CREATININE (test code = 2201582588) 2.76 mg/dL 0.60-1.25 H CALCIUM (test code = 3917732032) 8.9 mg/dL 8.6-10.6 eGFR (test code = 9127312437) 23.6 mL/min/1.73m2 MIKAYLA (test code = MIKAYLA) Association of [...] or abnormalities in imaging tests). Lab Interpretation (test code = 44676-3) Abnormal [facility] GLUCOSE (AUTOMATED)2022-10-02 17:21:40* Test Item Value Reference Range Interpretation Comme [facility] POCT GLU (test code = 1074151927) 70-110 Notified Provide r Lab Interpretation (test code = 31966-2) Abnormal [facility] GLUCOSE (AUTOMATED)2022-10-02 17:20:58* Test Item Value Reference Range Interpretation Comme nts POCT GLU (test code = 1175622347) 70-110 HH Notified Provide r Lab Interpretation (test code = 29083-1) [facility] + Lactic [id number] 16:55:48* Test Item Value Reference Range Interpretation Comme nts PH (test code = 2) 7.27 7.35-7.45 L PCO2 (test code = 4545473906) 43 See_Comment [Automated message] The system which generated this result transmitted reference range: 35 - 45 mmHg. The reference range was not used to interpret this result as normal/abnormal. PO2 (test code = 8271953497) 108 See_Comment H [Automated message] The system which generated this result transmitted reference range: 80 - 100 mmHg. The reference range was not used to interpret this result as normal/abnormal. HCO3 (test code = 6977222395) 19 See_Comment L [Automated message] The system which generated this result transmitted reference range: 22 - 26 mEq/L. The reference range was not used to interpret this result as normal/abnormal. BE (test code = 4576716703) -7.3 See_Comment L [Automated message] The system which generated this result transmitted reference range: -3.0 - 3.0 mEq/L. The reference range was not used to interpret this result as normal/abnormal. THB (test code = 2081002012) 16.0 g/dL 13.5-18.0 %O2HB (test code = 9282797091) 95.2 % 94.0-99.0 %COHB ART (test code = 6125721447) 2.0 % 0.0-1.5 H %METHB ART (test code = 7805643023) 0.1 % 0.4-1.5 L VOL%O2 ART (test code = 6262898186) 21.5 % 15.0-23.0 NA (test code = 5200339586) 111 mmol/L 135-145 LL K+ (test code = 7377355032) 3.5-5.0 LL AC CA IONZ (test code = 0982342683) 4.50-5.30 LL GLUCOSE (test code = 5599534899) 70-110 LL LACTIC ACID (test code = 6390329975) 2.40 mmol/L 0.50-2.20 H QUES MIKAYLA (test code = MIKAYLA) oout of range Lab Interpretation (test code = 12219-8) Abnormal [facility] GLUCOSE (AUTOMATED)2022-10-02 15:15:18* Test Item Value Reference Range Interpretation Comme nts POCT GLU (test code = 8972305098) 70-110 HH Lab Interpretation (test cod e = 09270-9) [id number]* Test Item Value Reference Range Interpretation Comme nts TROPONIN I (test code = 4323834634) 0.045 ng/mL <=0.034 H MIKAYLA (test code = MIKAYLA) Reference (Normal) [...] patient's use of biotin. Lab Interpretation (test code = 86446-4) [facility] [id number] 12:05:07* Test Item Value Reference Range Interpretation Comme [facility] NT-proBNP (test code = 3908977533) 1260 pg/mL <=125 H MIKAYLA (test code = MIKAYLA) Biotin has been reported to cause a negative bias, interpret results relative to patient's use of biotin. Lab Interpretation (test code = 67836-9) [facility] 12:04:06 ALCOHOL<10mg/dL10/02/2022 6:04 AM [facility] [id number] Toxic>100 Depression of [facility] [employer]>400 [facility] SARS-COV-2 ANTIGEN (BINAX NOW)2022-09-25 01:08:00* Test Item Value Reference Range Interpretation Comme nts POCT SARS-COV-2 ANTIGEN (rocio t code = 27221-8) Not Detected Not Detected On board controls acceptable with C Line (test code = 3574) Yes Lab Interpretation (test cod e = 05892-3) Normal [facility] MOLECULAR [id number] 00:55:41* Test Item Value Reference Range Interpretation Comme nts POCT Molecular Strep (test c ode = 30362-3) Negative Negative Lab Interpretation (test cod e = 43645-9) Normal [facility] GLUCOSE (AUTOMATED)2022-09-08 17:55:56* Test Item Value Reference Range Interpretation Comme nts POCT GLU (test code = 3488199712) 154 mg/dL 70-110 H Lab Interpretation (test cod e = 55768-6) Abnormal [facility] GLUCOSE (AUTOMATED)2022-09-08 14:26:14* Test Item Value Reference Range Interpretation Comme nts POCT GLU (test code = 4543459442) 103 mg/dL 70-110 Lab Interpretation (test cod e = 59376-3) Normal [facility] GLUCOSE (AUTOMATED)2022-09-08 04:33:55* Test Item Value Reference Range Interpretation Comme nts POCT GLU (test code = 9290983151) 117 mg/dL 70-110 H Lab Interpretation (test cod e = 04237-2) Abnormal [facility] GLUCOSE (AUTOMATED)2022-09-07 22:32:57* Test Item Value Reference Range Interpretation Comme nts POCT GLU (test code = 3725651148) 127 mg/dL 70-110 H Lab Interpretation (test cod e = 04753-1) Abnormal [facility] GLUCOSE (AUTOMATED)2022-09-07 18:11:36* Test Item Value Reference Range Interpretation Comme nts POCT GLU (test code = 1194999758) 136 mg/dL 70-110 H Lab Interpretation (test cod e = 73665-1) Abnormal [facility] GLUCOSE (AUTOMATED)2022-09-07 14:18:16* Test Item Value Reference Range Interpretation Comme nts POCT GLU (test code = 7799278440) 101 mg/dL 70-110 Lab Interpretation (test cod e = 74215-5) Normal [facility] GLUCOSE (AUTOMATED)2022-09-07 03:26:53* Test Item Value Reference Range Interpretation Comme nts POCT GLU (test code = 6369091316) 118 mg/dL 70-110 H Lab Interpretation (test cod e = 15144-9) Abnormal [facility] GLUCOSE (AUTOMATED)2022-09-06 22:22:37* Test Item Value Reference Range Interpretation Comme nts POCT GLU (test code = 9529188942) 124 mg/dL 70-110 H Lab Interpretation (test cod e = 00715-1) Abnormal [facility] GLUCOSE (AUTOMATED)2022-09-06 18:28:10* Test Item Value Reference Range Interpretation Comme nts POCT GLU (test code = 8742601963) 195 mg/dL 70-110 H Lab Interpretation (test cod e = 48736-4) Abnormal [facility] GLUCOSE (AUTOMATED)2022-09-06 14:25:17* Test Item Value Reference Range Interpretation Comme nts POCT GLU (test code = 3729082696) 98 mg/dL 70-110 Lab Interpretation (test cod e = 83580-1) Normal [facility] Conf[facility] (Lab Only)2022-09-06 13:27:39* Test Item Value Reference Range Interpretation Comme nts ABO & RH (test code = 20) O Positive Performed at [facility] Blood [place] [address]Toll Free: [phone] No. [id number] [facility] Screen - ONCE [id number] 12:02:46* Test Item Value Reference Range Interpretation Comme nts ABO & RH (test code = 20) O POSITIVE Performed at [facility] Blood [place] [address]Toll Free: [phone] No. [id number] IAT (test code = 1185) Negative Performed at [facility] Blood [place] [address]Toll Free: [phone] No. [id number] [facility] GLUCOSE (AUTOMATED)2022-09-06 03:37:19* Test Item Value Reference Range Interpretation Comme nts POCT GLU (test code = 2189146799) 152 mg/dL 70-110 H Lab Interpretation (test cod e = 55531-7) Abnormal [facility] GLUCOSE (AUTOMATED)2022-09-05 23:43:16* Test Item Value Reference Range Interpretation Comme nts POCT GLU (test code = 3550963817) 107 mg/dL 70-110 Lab Interpretation (test cod e = 73513-1) Normal [facility] GLUCOSE (AUTOMATED)2022-09-05 18:11:22* Test Item Value Reference Range Interpretation Comme nts POCT GLU (test code = 4434840353) 158 mg/dL 70-110 H Lab Interpretation (test cod e = 90177-5) Abnormal [facility] GLUCOSE (AUTOMATED)2022-09-05 18:11:22* Test Item Value Reference Range Interpretation Comme nts POCT GLU (test code = 4513833423) 158 mg/dL 70-110 H Lab Interpretation (test cod e = 97883-2) Abnormal [facility] GLUCOSE (AUTOMATED)2022-09-05 15:39:51* Test Item Value Reference Range Interpretation Comme nts POCT GLU (test code = 4190528054) 86 mg/dL 70-110 Lab Interpretation (test cod e = 56913-2) Normal [facility] GLUCOSE (AUTOMATED)2022-09-05 15:39:51* Test Item Value Reference Range Interpretation Comme nts POCT GLU (test code = 3706090772) 86 mg/dL 70-110 Lab Interpretation (test cod e = 35976-2) Normal [facility] GLUCOSE (AUTOMATED)2022-09-05 03:23:14* Test Item Value Reference Range Interpretation Comme nts POCT GLU (test code = 7609517268) 215 mg/dL 70-110 H Lab Interpretation (test cod e = 08601-7) Abnormal [facility] GLUCOSE (AUTOMATED)2022-09-05 03:23:14* Test Item Value Reference Range Interpretation Comme nts POCT GLU (test code = 5426656922) 215 mg/dL 70-110 H Lab Interpretation (test cod e = 68617-5) Abnormal [facility] GLUCOSE (AUTOMATED)2022-09-04 14:23:52* Test Item Value Reference Range Interpretation Comme nts POCT GLU (test code = 7024035847) 107 mg/dL 70-110 Lab Interpretation (test cod e = 58633-1) Normal [facility])2022-09-04 14:23:52* Test Item Value Reference Range Interpretation Comme nts POCT GLU (test code = 4477364772) 107 mg/dL 70-110 Lab Interpretation (test cod e = 36265-9) Normal [facility]. METABOLIC PANEL ([id number])2022-09-04 11:14:40* Test Item Value Reference Range Interpretation Comme nts NA (test code = 0377694994) 135 mmol/L 135-145 K (test code = 3740838736) 3.9 mmol/L 3.5-5.0 CL (test code = 9735509420) 101 mmol/L 98-108 CO2 TOTAL (test code = 5221584010) 31 mmol/L 23-31 AGAP (test code = 8119790306) 2-16 BUN (test code = 7154359440) 31 mg/dL 7-23 H GLUCOSE (test code = 5628945415) 120 mg/dL 70-110 H CREATININE (test code = 6574370565) 1.74 mg/dL 0.60-1.25 H TOTAL BILI (test code = 1657425817) 1.0 mg/dL 0.1-1.1 CALCIUM (test code = 6961885940) 7.8 mg/dL 8.6-10.6 L T PROTEIN (test code = 2642976928) 6.4 g/dL 6.3-8.2 ALBUMIN (test code = 0853849978) 2.9 g/dL 3.5-5.0 L ALK PHOS (test code = 4223919923) 91 U/L 34-122 ALTv (test code = 1742-6) 15 U/L 5-50 AST(SGOT) (test code = 6841041289) 35 U/L 13-40 eGFR (test code = 1849723281) mL/min/1.73m2 MIKAYLA (test code = MIKAYLA) Association of [...] or abnormalities in imaging tests). Lab Interpretation (test code = 19707-0) [facility]normal [facility]UM2023-[facility] 11:14:40* Test Item Value Reference Range Interpretation Comme nts MAGNESIUM (test code = 4175915672) 2.1 mg/dL 1.7-2.4 Lab Interpretation (test cod e = 35568-5) Normal [facility]COMP. METABOLIC PANEL (83119)2022-09-04 11:14:40* Test Item Value Reference Range Interpretation Comme nts NA (test code = 4669816650) 135 mmol/L 135-145 K (test code = 8857944634) 3.9 mmol/L 3.5-5.0 CL (test code = 3702651894) 101 mmol/L 98-108 CO2 TOTAL (test code = 4515156050) 31 mmol/L 23-31 AGAP (test code = 3883692825) 2-16 BUN (test code = 5245991184) 31 mg/dL 7-23 H GLUCOSE (test code = 5519118505) 120 mg/dL 70-110 H CREATININE (test code = 1176845313) 1.74 mg/dL 0.60-1.25 H TOTAL BILI (test code = 5060442793) 1.0 mg/dL 0.1-1.1 CALCIUM (test code = 2336110716) 7.8 mg/dL 8.6-10.6 L T PROTEIN (test code = 1338913560) 6.4 g/dL 6.3-8.2 ALBUMIN (test code = 0681133215) 2.9 g/dL 3.5-5.0 L ALK PHOS (test code = 3717038215) 91 U/L 34-122 ALTv (test code = 1742-6) 15 U/L 5-50 AST(SGOT) (test code = 0480754132) 35 U/L 13-40 eGFR (test code = 1349502913) mL/min/1.73m2 MIKAYLA (test code = MIKAYLA) Association of [...] or abnormalities in imaging tests). Lab Interpretation (test code = 58569-1) [facility]:14:40* Test Item Value Reference Range Interpretation Comme nts MAGNESIUM (test code = 6824643443) 2.1 mg/dL 1.7-2.4 Lab Interpretation (test cod e = 28712-7) Normal [facility] GLUCOSE (AUTOMATED)2022-09-04 02:35:16* Test Item Value Reference Range Interpretation Comme nts POCT GLU (test code = 7992316466) 129 mg/dL 70-110 H Lab Interpretation (test cod e = 18618-7) Abnormal [facility] GLUCOSE (AUTOMATED)2022-09-04 02:35:16* Test Item Value Reference Range Interpretation Comme nts POCT GLU (test code = 4191200700) 129 mg/dL 70-110 H Lab Interpretation (test cod e = 13531-7) Abnormal [facility] GLUCOSE (AUTOMATED)2022-09-03 22:53:04* Test Item Value Reference Range Interpretation Comme nts POCT GLU (test code = 2402243324) 150 mg/dL 70-110 H Lab Interpretation (test cod e = 86514-6) Abnormal [facility] GLUCOSE (AUTOMATED)2022-09-03 22:53:04* Test Item Value Reference Range Interpretation Comme nts POCT GLU (test code = 3385949711) 150 mg/dL 70-110 H Lab Interpretation (test cod e = 24853-9) Abnormal [facility] GLUCOSE (AUTOMATED)2022-09-03 17:41:51* Test Item Value Reference Range Interpretation Comme nts POCT GLU (test code = 7496676787) 86 mg/dL 70-110 Lab Interpretation (test cod e = 59284-8) Normal [facility] GLUCOSE (AUTOMATED)2022-09-03 17:41:51* Test Item Value Reference Range Interpretation Comme nts POCT GLU (test code = 4689183716) 86 mg/dL 70-110 Lab Interpretation (test cod e = 85965-5) Normal [facility] GLUCOSE (AUTOMATED)2022-09-03 13:55:12* Test Item Value Reference Range Interpretation Comme nts POCT GLU (test code = 1584489744) 97 mg/dL 70-110 Lab Interpretation (test cod e = 55061-2) Normal [facility] GLUCOSE (AUTOMATED)2022-09-03 13:55:12* Test Item Value Reference Range Interpretation Comme nts POCT GLU (test code = 7755417408) 97 mg/dL 70-110 Lab Interpretation (test cod e = 60507-2) Normal [facility] GLUCOSE (AUTOMATED)2022-09-03 03:12:06* Test Item Value Reference Range Interpretation Comme nts POCT GLU (test code = 5832030847) 132 mg/dL 70-110 H Lab Interpretation (test cod e = 05301-7) Abnormal [facility] GLUCOSE (AUTOMATED)2022-09-03 03:12:06* Test Item Value Reference Range Interpretation Comme nts POCT GLU (test code = 4268804918) 132 mg/dL 70-110 H Lab Interpretation (test cod e = 49166-6) Abnormal [facility] GLUCOSE (AUTOMATED)2022-09-02 22:34:25* Test Item Value Reference Range Interpretation Comme nts POCT GLU (test code = 3277210783) 115 mg/dL 70-110 H Lab Interpretation (test cod e = 47033-4) Abnormal [facility] GLUCOSE (AUTOMATED)2022-09-02 22:34:25* Test Item Value Reference Range Interpretation Comme nts POCT GLU (test code = 1531668647) 115 mg/dL 70-110 H Lab Interpretation (test cod e = 29645-1) Abnormal [facility] GLUCOSE (AUTOMATED)2022-09-02 17:38:52* Test Item Value Reference Range Interpretation Comme nts POCT GLU (test code = 6855263823) 133 mg/dL 70-110 H Lab Interpretation (test cod e = 82020-1) Abnormal [facility] GLUCOSE (AUTOMATED)2022-09-02 17:38:52* Test Item Value Reference Range Interpretation Comme nts POCT GLU (test code = 7228623883) 133 mg/dL 70-110 H Lab Interpretation (test cod e = 21746-2) Abnormal [facility] GLUCOSE (AUTOMATED)2022-09-02 13:37:34* Test Item Value Reference Range Interpretation Comme nts POCT GLU (test code = 8945657394) 100 mg/dL 70-110 Lab Interpretation (test cod e = 22192-7) Normal [facility] GLUCOSE (AUTOMATED)2022-09-02 13:37:34* Test Item Value Reference Range Interpretation Comme nts POCT GLU (test code = 8705097597) 100 mg/dL 70-110 Lab Interpretation (test cod e = 17001-0) Normal [facility] GLUCOSE (AUTOMATED)2022-09-02 02:47:30* Test Item Value Reference Range Interpretation Comme nts POCT GLU (test code = 9232488781) 128 mg/dL 70-110 H Lab Interpretation (test cod e = 93184-4) Abnormal [facility] GLUCOSE (AUTOMATED)2022-09-02 02:47:30* Test Item Value Reference Range Interpretation Comme nts POCT GLU (test code = 6137938694) 128 mg/dL 70-110 H Lab Interpretation (test cod e = 09663-0) Abnormal [facility] GLUCOSE (AUTOMATED)2022-09-02 00:02:07* Test Item Value Reference Range Interpretation Comme nts POCT GLU (test code = 2725199555) 156 mg/dL 70-110 H Notified Provide r Lab Interpretation (test code = 30114-5) Abnormal [facility] GLUCOSE (AUTOMATED)2022-09-02 00:02:07* Test Item Value Reference Range Interpretation Comme nts POCT GLU (test code = 5708493069) 156 mg/dL 70-110 H Notified Provide r Lab Interpretation (test code = 45518-9) Abnormal [facility] GLUCOSE (AUTOMATED)2022-09-01 18:18:04* Test Item Value Reference Range Interpretation Comme nts POCT GLU (test code = 1405460624) 180 mg/dL 70-110 H Lab Interpretation (test cod e = 16406-9) Abnormal [facility] GLUCOSE (AUTOMATED)2022-09-01 18:18:04* Test Item Value Reference Range Interpretation Comme nts POCT GLU (test code = 6249822065) 180 mg/dL 70-110 H Lab Interpretation (test cod e = 28248-7) Abnormal [facility] GLUCOSE (AUTOMATED)2022-09-01 14:09:09* Test Item Value Reference Range Interpretation Comme nts POCT GLU (test code = 9966503269) 123 mg/dL 70-110 H Notified Provide r Lab Interpretation (test code = 96697-0) Abnormal [facility] GLUCOSE (AUTOMATED)2022-09-01 14:09:09* Test Item Value Reference Range Interpretation Comme nts POCT GLU (test code = 8191682489) 123 mg/dL 70-110 H Notified Provide r Lab Interpretation (test code = 18141-0) Abnormal [facility] GLUCOSE (AUTOMATED)2022-09-01 02:25:31* Test Item Value Reference Range Interpretation Comme nts POCT GLU (test code = 1322961293) 160 mg/dL 70-110 H Lab Interpretation (test cod e = 54096-6) Abnormal [facility] GLUCOSE (AUTOMATED)2022-09-01 02:25:31* Test Item Value Reference Range Interpretation Comme nts POCT GLU (test code = 5026474511) 160 mg/dL 70-110 H Lab Interpretation (test cod e = 98366-7) Abnormal [facility]cos[facility] (A1C)2022-08-31 23:34:28* Test Item Value Reference Range Interpretation Comme nts HGB A1C (test code = 4548-4) 8.2 % 4.0-5.7 H MIKAYLA (test code = MIKAYLA) Reference RangesNormal: <5.7%Prediabetes: 5.7 - 6.4%Diabetes: > 6.5% Lab Interpretation (test code = 16761-7) Abnormal [facility] Hemoglobin (A1C)2022-08-31 23:34:28* Test Item Value Reference Range Interpretation Comme nts HGB A1C (test code = 4548-4) 8.2 % 4.0-5.7 H MIKAYLA (test code = MIKAYLA) Reference RangesNormal: <5.7%Prediabetes: 5.7 - 6.4%Diabetes: > 6.5% Lab Interpretation (test code = 52778-1) Abnormal [facility]an[facility] (TTE)2022-08-31 23:15:13* Test Item Value Reference Range Interpretation Comme nts Height (test code = 3712186362) in Weight (test code = 1679469686) lbs Systolic BP (test code = 2669268372) mmHg Diastolic BP (test code = 9984289459) mmHg Heart Rate (test code = 2446816637) bpm BSA (test code = 5964534980) 2.40 m2 Ao root diam (test code = 9389527895) 3.50 cm Aortic root (test code = 6310962901) 3.5 cm Ao root annulus (test code = 3524001530) 3.5 cm LVOT diameter (test code = 7155743397) 2.01 cm LVOT area (test code = 5851080346) 3.20 cm2 LVIDD (test code = 0917028257) 4.50 cm Left Ventricular End Diastolic Volume by Teichholz Method (test code = 6752748) 92.1 mL IVS (test code = 2285813014) 1.16 cm Interventricular Septum Diastolic Thickness by 2D (test code = 1296565) 1.16 cm LVPWD (test code = 0807172783) 1.15 cm PW (test code = 8758895877) 1.15 cm 0.6-1.1 EF(Teich) (test code = 5156126592) 44.20 % LVIDS (test code = 6528886888) 3.50 cm Left Ventricular End Systolic Volume by Teichholz Method (test code = 7125126) 51.4 mL FS (test code = 1070446869) 22 % EF - 2D (test code = 41932074) 44.20 % LA size (test code = 0477245084) 4.2 cm TR Peak Artemio (test code = 6770869916) 347.9 cm/s Triscuspid Valve Regurgitation Peak Gradient (test code = 1241634980) mmHg LAV(MOD-sp4) (test code = 8355427037) 55.40 mL E wave decelartion time (test code = 8583226938) 0.20 s MV Peak E Artemio (test code = 3248093461) 131.6 cm/s MV stenosis pressure 1/2 time (test code = 1695491269) 59.8 ms MV Peak A Artemio (test code = 1177734460) 158.5 cm/s E/A ratio (test code = 9515729449) ratio MR max PG (test code = 7217612690) 132.30 mm[Hg] MR max artemio (test code = 5008554286) 575.00 cm/s Mr max artemio (test code = 5158918493) 575.0 m/s MV Prop V (test code = 5543908636) 44.80 cm/s MV E/e' septal (test code = 3697259008) 9.1 cm/s LVOT stroke volume (test code = 8450635817) 61.50 cm3 LVOT peak artemio (test code = 7552278730) 106.5 cm/s LVOT mn grad (test code = 3657327555) mmHg AV LVOT peak gradient (test code = 9850267559) mmHg LVOT peak VTI (test code = 2317777834) 19.3 cm LV V1 mean (test code = 3627925361) 74.70 cm/s Aortic valve mean velocity (test code = 7927746333) 217.3 cm/s Ao peak artemio (test code = 5802181008) 286.3 cm/s Ao VTI (test code = 7384635178) 51.1 cm AV area by cont VTI (test code = 4110323288) 1.2 cm2 AV area peak artemio (test code = 3900476298) 1.2 cm2 Ao max PG (test code = 0505467379) 32.80 mm[Hg] AV peak gradient (test code = 7359474468) mmHg AV valve area (test code = 4059493329) 1.20 cm2 AV mean gradient (test code = 2871181534) mmHg AV regurgitation pressure 1/2 time (test code = 6230752227) 386.1 ms AI dec slope (test code = 6508058673) 273.40 cm/s2 AI max artemio (test code = 5969241209) 360.30 cm/s AI max PG (test code = 7588883871) 51.90 mm[Hg] Radiology Study observation (narrative) (test code = 02201-9) MIKAYLA (test code = MIKAYLA) ?Left?Ventricle: Left [...] mL of Lumason ultrasound enhancing agent used. [facility]E)2022-08-31 23:15:13* Test Item Value Reference Range Interpretation Comme nts Height (test code = 5124368945) in Weight (test code = 4581483904) lbs Systolic BP (test code = 7505540362) mmHg Diastolic BP (test code = 9329319905) mmHg Heart Rate (test code = 6103590386) bpm BSA (test code = 3913361875) 2.40 m2 Ao root diam (test code = 9932555971) 3.50 cm Aortic root (test code = 9626692665) 3.5 cm Ao root annulus (test code = 8849341306) 3.5 cm LVOT diameter (test code = 6292970708) 2.01 cm LVOT area (test code = 7739681810) 3.20 cm2 LVIDD (test code = 9463148843) 4.50 cm Left Ventricular End Diastolic Volume by Teichholz Method (test code = 5668661) 92.1 mL IVS (test code = 1928971365) 1.16 cm Interventricular Septum Diastolic Thickness by 2D (test code = 5864048) 1.16 cm LVPWD (test code = 1363428708) 1.15 cm PW (test code = 7986715816) 1.15 cm 0.6-1.1 EF(Teich) (test code = 6736978532) 44.20 % LVIDS (test code = 2708847794) 3.50 cm Left Ventricular End Systolic Volume by Teichholz Method (test code = 9581433) 51.4 mL FS (test code = 7511387409) 22 % EF - 2D (test code = 13948494) 44.20 % LA size (test code = 4637284093) 4.2 cm TR Peak Artemio (test code = 2535097811) 347.9 cm/s Triscuspid Valve Regurgitation Peak Gradient (test code = 5880463173) mmHg LAV(MOD-sp4) (test code = 5554434654) 55.40 mL E wave decelartion time (test code = 7358690112) 0.20 s MV Peak E Artemio (test code = 2725047062) 131.6 cm/s MV stenosis pressure 1/2 time (test code = 0268417417) 59.8 ms MV Peak A Artemio (test code = 6710927085) 158.5 cm/s E/A ratio (test code = 0538942753) ratio MR max PG (test code = 9472700737) 132.30 mm[Hg] MR max artemio (test code = 5857914040) 575.00 cm/s Mr max artemio (test code = 5466199920) 575.0 m/s MV Prop V (test code = 0437189019) 44.80 cm/s MV E/e' septal (test code = 5623757351) 9.1 cm/s LVOT stroke volume (test code = 1503809459) 61.50 cm3 LVOT peak artemio (test code = 0817207385) 106.5 cm/s LVOT mn grad (test code = 6844015244) mmHg AV LVOT peak gradient (test code = 5563846364) mmHg LVOT peak VTI (test code = 2348151736) 19.3 cm LV V1 mean (test code = 7751879608) 74.70 cm/s Aortic valve mean velocity (test code = 9981426386) 217.3 cm/s Ao peak artemio (test code = 1101077618) 286.3 cm/s Ao VTI (test code = 4226019625) 51.1 cm AV area by cont VTI (test code = 7392332899) 1.2 cm2 AV area peak artemio (test code = 3829475616) 1.2 cm2 Ao max PG (test code = 9662614399) 32.80 mm[Hg] AV peak gradient (test code = 8607670001) mmHg AV valve area (test code = 4869939324) 1.20 cm2 AV mean gradient (test code = 3406919983) mmHg AV regurgitation pressure 1/2 time (test code = 3443816079) 386.1 ms AI dec slope (test code = 0321283148) 273.40 cm/s2 AI max artemio (test code = 9144355788) 360.30 cm/s AI max PG (test code = 1255595030) 51.90 mm[Hg] Radiology Study observation (narrative) (test code = 87925-5) MIKAYLA (test code = MIKAYLA) ?Left?Ventricle: Left [...] mL of Lumason ultrasound enhancing agent used. [facility] GLUCOSE (AUTOMATED)2022-08-31 22:49:47* Test Item Value Reference Range Interpretation Comme nts POCT GLU (test code = 2287690236) 137 mg/dL 70-110 H Lab Interpretation (test cod e = 96408-5) Abnormal [facility] GLUCOSE (AUTOMATED)2022-08-31 22:49:47* Test Item Value Reference Range Interpretation Comme nts POCT GLU (test code = 0095946802) 137 mg/dL 70-110 H Lab Interpretation (test cod e = 93951-6) Abnormal [facility] GLUCOSE (AUTOMATED)2022-08-31 22:03:54* Test Item Value Reference Range Interpretation Comme nts POCT GLU (test code = 7006614311) 178 mg/dL 70-110 H Lab Interpretation (test cod e = 17031-4) Abnormal [facility] GLUCOSE (AUTOMATED)2022-08-31 22:03:54* Test Item Value Reference Range Interpretation Comme nts POCT GLU (test code = 2052128552) 178 mg/dL 70-110 H Lab Interpretation (test cod e = 88042-1) Abnormal [facility] GLUCOSE (AUTOMATED)2022-08-31 16:50:25* Test Item Value Reference Range Interpretation Comme nts POCT GLU (test code = 7299775238) 58 mg/dL 70-110 L Lab Interpretation (test cod e = 38288-0) Abnormal [facility] GLUCOSE (AUTOMATED)2022-08-31 16:50:25* Test Item Value Reference Range Interpretation Comme nts POCT GLU (test code = 1907347217) 96 mg/dL 70-110 Lab Interpretation (test cod e = 83271-4) Normal [facility] GLUCOSE (AUTOMATED)2022-08-31 16:50:25* Test Item Value Reference Range Interpretation Comme nts POCT GLU (test code = 3268177367) 58 mg/dL 70-110 L Lab Interpretation (test cod e = 12267-8) Abnormal [facility] GLUCOSE (AUTOMATED)2022-08-31 16:50:25* Test Item Value Reference Range Interpretation Comme nts POCT GLU (test code = 4408489003) 96 mg/dL 70-110 Lab Interpretation (test cod e = 14963-2) Normal [facility] GLUCOSE (AUTOMATED)2022-08-31 16:08:42* Test Item Value Reference Range Interpretation Comme nts POCT GLU (test code = [id number]) 65 mg/dL 70-110 L Lab Interpretation (test cod e = 82003-6) Abnormal [facility] GLUCOSE (AUTOMATED)2022-08-31 16:08:42* Test Item Value Reference Range Interpretation Comme nts POCT GLU (test code = [id number]) 65 mg/dL 70-110 L Lab Interpretation (test cod e = 45355-0) Abnormal [facility] GLUCOSE (AUTOMATED)2022-08-31 15:42:34* Test Item Value Reference Range Interpretation Comme nts POCT GLU (test code = [id number]) 46 mg/dL 70-110 LL Lab Interpretation (test cod e = 53076-5) Abnormal [facility] GLUCOSE (AUTOMATED)2022-08-31 15:42:34* Test Item Value Reference Range Interpretation Comme nts POCT GLU (test code = 4931491143) 46 mg/dL 70-110 LL Lab Interpretation (test cod e = 16267-9) [facility] [id number] 13:56:19* Test Item Value Reference Range Interpretation Comme nts PROTIME PATIENT (test code = 5964-2) See_Comment H [Automated [employer]] The system which generated this result transmitted reference range: 12.0 - 14.7 Seconds. The reference range was not used to interpret this result as normal/abnormal. INR (test code = 6301-6) Normal INR <1.1; Warfarin Therapeutic range 2.0 to 3.0 or 2.5 to 3.5, depending upon the indications. Lab Interpretation (test code = 77940-5) [facility]normal [facility] / [id number] 13:56:19* Test Item Value Reference Range Interpretation Comme [facility] PROTIME PATIENT (test code = 5964-2) See_Comment H [Automated [employer]] The system which generated this result transmitted reference range: 12.0 - 14.7 Seconds. The reference range was not used to interpret this result as normal/abnormal. INR (test code = 6301-6) Normal INR <1.1; Warfarin Therapeutic range 2.0 to 3.0 or 2.5 to 3.5, depending upon the indications. Lab Interpretation (test code = 09368-9) Abnormal [facility] [id number] 13:24:55* Test Item Value Reference Range Interpretation Comments TROPONIN I (test code = 9172174788) 0.034 ng/mL See_Comment [Automated message] The system which generated this result transmitted reference range: <=0.034. The reference range was not used to interpret this result as normal/abnormal. MIKAYLA (test code = MIKAYLA) Reference (Normal) [...] patient's use of biotin. Lab Interpretation (test code = 74894-7) Normal [facility] [id number] 13:24:55* Test Item Value Reference Range Interpretation Comments TROPONIN I (test code = 8630628078) 0.034 ng/mL See_Comment [Automated message] The system which generated this result transmitted reference range: <=0.034. The reference range was not used to interpret this result as normal/abnormal. MIKAYLA (test code = MIKAYLA) Reference (Normal) [...] patient's use of biotin. Lab Interpretation (test code = 88685-1) Normal [facility]N-[facility]MINAL [id number] 13:21:34* Test Item Value Reference Range Interpretation Comme nts NT-proBNP (test code = 0413108685) 99184 pg/mL See_Comment H [Automated message] The system which generated this result transmitted reference range: <=125. The reference range was not used to interpret this result as normal/abnormal. MIKAYLA (test code = MIKAYLA) Biotin has been reported to cause a negative bias, interpret results relative to patient's use of biotin. Lab Interpretation (test code = 20181-7) Abnormal [facility] [id number] 13:21:34* Test Item Value Reference Range Interpretation Comme nts NT-proBNP (test code = 5367167804) 19063 pg/mL See_Comment H [Automated message] The system which generated this result transmitted reference range: <=125. The reference range was not used to interpret this result as normal/abnormal. MIKAYLA (test code = MIKAYLA) Biotin has been reported to cause a negative bias, interpret results relative to patient's use of biotin. Lab Interpretation (test code = 91564-3) Abnormal [facility] HospitalCOMP. METABOLIC PANEL (36816)2022-08-31 13:12:56* Test Item Value Reference Range Interpretation Comme nts NA (test code = 1821024636) 137 mmol/L 135-145 K (test code = 9646333680) 3.6 mmol/L 3.5-5.0 CL (test code = 3155860385) 103 mmol/L 98-108 CO2 TOTAL (test code = 0241168821) 22 mmol/L 23-31 L AGAP (test code = 1312250481) 2-16 BUN (test code = 7335375899) 22 mg/dL 7-23 GLUCOSE (test code = 1765732969) 69 mg/dL 70-110 L CREATININE (test code = 3100630641) 1.95 mg/dL 0.60-1.25 H TOTAL BILI (test code = 1985118361) 2.2 mg/dL 0.1-1.1 H CALCIUM (test code = 4551975579) 8.3 mg/dL 8.6-10.6 L T PROTEIN (test code = 6426526435) 6.4 g/dL 6.3-8.2 ALBUMIN (test code = 8034327852) 3.2 g/dL 3.5-5.0 L ALK PHOS (test code = 0215732043) 131 U/L 34-122 H ALTv (test code = 1742-6) 16 U/L 5-50 AST(SGOT) (test code = 5423998538) 34 U/L 13-40 eGFR (test code = 5731152532) mL/min/1.73m2 MIKAYLA (test code = MIKAYLA) Association of [...] or abnormalities in imaging tests). Lab Interpretation (test code = 55633-7) Abnormal [facility]. METABOLIC PANEL (35289)2022-08-31 13:12:56* Test Item Value Reference Range Interpretation Comme nts NA (test code = 1761760607) 137 mmol/L 135-145 K (test code = 0422912923) 3.6 mmol/L 3.5-5.0 CL (test code = 8315072433) 103 mmol/L 98-108 CO2 TOTAL (test code = 5467093422) 22 mmol/L 23-31 L AGAP (test code = 5619975119) 2-16 BUN (test code = 2414599925) 22 mg/dL 7-23 GLUCOSE (test code = 7731787338) 69 mg/dL 70-110 L CREATININE (test code = 9730040733) 1.95 mg/dL 0.60-1.25 H TOTAL BILI (test code = 4601556441) 2.2 mg/dL 0.1-1.1 H CALCIUM (test code = 4037636393) 8.3 mg/dL 8.6-10.6 L T PROTEIN (test code = 1005442176) 6.4 g/dL 6.3-8.2 ALBUMIN (test code = 6614229000) 3.2 g/dL 3.5-5.0 L ALK PHOS (test code = 9013915198) 131 U/L 34-122 H ALTv (test code = 1742-6) 16 U/L 5-50 AST(SGOT) (test code = 5053344901) 34 U/L 13-40 eGFR (test code = 4905566866) mL/min/1.73m2 MIKAYLA (test code = MIKAYLA) Association of [...] or abnormalities in imaging tests). Lab Interpretation (test code = 80417-3) Abnormal [facility] WITH [id number] 13:07:54* Test Item Value Reference Range Interpretation Comme nts WBC (test code = 6690-2) See_Comment [Automated [employer]] The system which generated this result transmitted reference range: 4.20 - 10.70 10*3/?L. The reference range was not used to interpret this result as normal/abnormal. RBC (test code = 789-8) See_Comment [Automated [employer]] The system which generated this result transmitted reference range: 4.26 - 5.52 10*6/?L. The reference range was not used to interpret this result as normal/abnormal. HGB (test code = 718-7) 13.3 g/dL 12.2-16.4 HCT (test code = 4544-3) 42.3 % 38.4-49.3 MCV (test code = 787-2) 77.8 fL 81.7-95.6 L MCH (test code = 785-6) 24.4 pg 26.1-32.7 L MCHC (test code = 786-4) 31.4 g/dL 31.2-35.0 RDW-SD (test code = 00145-1) 49.6 fL 38.5-51.6 RDW-CV (test code = 788-0) 18.2 % 12.1-15.4 H PLT (test code = 777-3) See_Comment [Automated [employer]] The system which generated this result transmitted reference range: 150 - 328 10*3/?L. The reference range was not used to interpret this result as normal/abnormal. MPV (test code = 02165-5) 11.5 fL 9.8-13.0 IPF % (test code = 3638308905) 4.4 % 1.2-10.7 Platelet count measured by fluorescence method. NRBC/100 WBC (test code = 0314141106) See_Comment [Automated [employer]age] The system which generated this result transmitted reference range: 0.0 - 10.0 /100 WBCs. The reference range was not used to interpret this result as normal/abnormal. NRBC x10^3 (test code = 1462164332) See_Comment [Automated [employer]] The system which generated this result transmitted reference range: 10*3/?L. The reference range was not used to interpret this result as normal/abnormal. GRAN MAT (NEUT) % (test code = 770-8) 72.1 % IMM GRAN % (test code = 7453994940) 0.50 % LYMPH % (test code = 736-9) 17.1 % MONO % (test code = 5905-5) 7.8 % EOS % (test code = 713-8) 1.7 % BASO % (test code = 706-2) 0.8 % GRAN MAT x10^3(ANC) (test code = 8084305165) 5.64 10*3/uL 1.99-6.95 IMM GRAN x10^3 (test code = 7268920142) 0.04 10*3/uL 0.00-0.06 LYMPH x10^3 (test code = 731-0) 1.34 10*3/uL 1.09-3.23 MONO x10^3 (test code = 742-7) 0.61 10*3/uL 0.36-1.02 EOS x10^3 (test code = 711-2) 0.13 10*3/uL 0.06-0.53 BASO x10^3 (test code = 704-7) 0.06 10*3/uL 0.01-0.09 Lab Interpretation (test code = 84299-4) Abnormal [facility] WITH [id number] 13:07:54* Test Item Value Reference Range Interpretation Comme nts WBC (test code = 6690-2) See_Comment [Automated messa ge] The system which generated this result transmitted reference range: 4.20 - 10.70 10*3/?L. The reference range was not used to interpret this result as normal/abnormal. RBC (test code = 789-8) See_Comment [Automated messa ge] The system which generated this result transmitted reference range: 4.26 - 5.52 10*6/?L. The reference range was not used to interpret this result as normal/abnormal. HGB (test code = 718-7) 13.3 g/dL 12.2-16.4 HCT (test code = 4544-3) 42.3 % 38.4-49.3 MCV (test code = 787-2) 77.8 fL 81.7-95.6 L MCH (test code = 785-6) 24.4 pg 26.1-32.7 L MCHC (test code = 786-4) 31.4 g/dL 31.2-35.0 RDW-SD (test code = 17954-6) 49.6 fL 38.5-51.6 RDW-CV (test code = 788-0) 18.2 % 12.1-15.4 H PLT (test code = 777-3) See_Comment [Automated messa ge] The system which generated this result transmitted reference range: 150 - 328 10*3/?L. The reference range was not used to interpret this result as normal/abnormal. MPV (test code = 06370-5) 11.5 fL 9.8-13.0 IPF % (test code = 3298370463) 4.4 % 1.2-10.7 Platelet count measured by fluorescence method. NRBC/100 WBC (test code = 0720111647) See_Comment [Automated [employer] ssage] The system which generated this result transmitted reference range: 0.0 - 10.0 /100 WBCs. The reference range was not used to interpret this result as normal/abnormal. NRBC x10^3 (test code = 3958957152) See_Comment [Automated [employer]] The system which generated this result transmitted reference range: 10*3/?L. The reference range was not used to interpret this result as normal/abnormal. GRAN MAT (NEUT) % (test code = 770-8) 72.1 % IMM GRAN % (test code = 5218425026) 0.50 % LYMPH % (test code = 736-9) 17.1 % MONO % (test code = 5905-5) 7.8 % EOS % (test code = 713-8) 1.7 % BASO % (test code = 706-2) 0.8 % GRAN MAT x10^3(ANC) (test code = 3053562297) 5.64 10*3/uL 1.99-6.95 IMM GRAN x10^3 (test code = 2987628050) 0.04 10*3/uL 0.00-0.06 LYMPH x10^3 (test code = 731-0) 1.34 10*3/uL 1.09-3.23 MONO x10^3 (test code = 742-7) 0.61 10*3/uL 0.36-1.02 EOS x10^3 (test code = 711-2) 0.13 10*3/uL 0.06-0.53 BASO x10^3 (test code = 704-7) 0.06 10*3/uL 0.01-0.09 Lab Interpretation (test code = 72581-7) [facility]normal [facility] [id number] 04:00:46* Test Item Value Reference Range Interpretation Comme nts GLUCOSE (test code = 2216) 99 MG/DL 70-99 BUN (test code = 2207) 25 MG/DL 6-20 H CREATININE (test code = 2213) 2.02 MG/DL 0.80-1.40 H eGFR (2020 CKD-EPI) (test code = 81687) 37 ML/MIN/1.73 >60 L CALC BUN/CREAT (test code = 2234) 12 RATIO 6-28 SODIUM (test code = 2230) 142 MEQ/L 133-146 POTASSIUM (test code = 2227) 4.7 MEQ/L 3.5-5.4 CHLORIDE (test code = 2214) 106 MEQ/L 95-107 CARBON DIOXIDE (test code = 2205) 20 MEQ/L 19-31 CALCIUM (test code = 2208) 10.0 MG/DL 8.5-10.5 PROTEIN, TOTAL (test code = 2228) 7.7 G/DL 6.1-8.3 ALBUMIN (test code = 2200) 4.3 G/DL 3.5-5.2 CALC GLOBULIN (test code = 224) 3.4 G/DL 1.9-3.7 CALC A/G RATIO (test code = 2233) 1.3 RATIO 1.0-2.6 BILIRUBIN, TOTAL (test code = 2206) 0.7 MG/DL See_Comment [Automated me ssage] The system which generated this result transmitted reference range: <=1.2. The reference range was not used to interpret this result as normal/abnormal. ALKALINE PHOSPHATASE (test code = 2203) 72 U/L 40-123 AST (test code = 2217) 18 U/L 9-50 ALT (test code = 2219) 12 U/L 5-50 LIPID [id number] 04:00:46* Test Item Value Reference Range Interpretation Comme nts CHOLESTEROL (test code = 0) 131 MG/DL <200 TRIGLYCERIDES (test code = 223) 58 MG/DL <150 HDL CHOLESTEROL (test code = 2220) 38 MG/DL >39 L CALC LDL CHOL (test code = 2236) 80 MG/DL <100 NOTE: CALCULATED LDL IS BASED ON FLORINA-WILLS METHOD WHICHINCLUDES ADJUSTABLE TRIGLYCERIDE:VLDL CHOLESTEROL RATIO.THIS FACTOR VARIES BY MEASURED TRIGLYCERIDE AND NON-HDLCHOLESTEROL CONCENTRATIONS WITH INCREASED CALCULATED LDL SEENIN HIGHER TRIGLYCERIDE OR LOWER NON-HDL SPECIMENS. FOR MOREINFORMATION, SEE CLIENT ANNOUNCEMENT AT [email or web address] RISK RATIO LDL/HDL (test code = 2238) 2.11 RATIO <3.55 ALBUMIN/CREATININE RATIO, URINE, [id number] 03:52:17* Test Item Value Reference Range Interpretation Comme nts CREATININE, URINE, RANDOM (test code = 2072) 37.7 MG/DL NOT ESTAB ALBUMIN, URINE, RANDOM (test code = 25430) 111.3 MG/DL NOT ESTAB CALC ALBUMIN/CREAT, RND (test code = 31112) 2952 MG/G <30 H Note: Albumin/Cr eatinine ratio reference interval reflects ADA and NKF guidelines. UNLESS OTHERWISE INDICATED, ALL TESTING PERFORMED [facility] [employer] [address] [place] [address] STUDIO SET UP WORKER: ZACHARY ELLER M.D. [place] NUMBER [id number] [facility] [place]. [id number] HEMOGLOBIN [id number] 03:39:55* Test Item Value Reference Range Interpretation Comme nts HEMOGLOBIN A1c (test code = 81538) 6.3 % 4.2-5.6 H LIPID [id number] 03:44:45* Test Item Value Reference Range Interpretation Comme nts CHOLESTEROL (test code = 2210) 174 MG/DL <200 TRIGLYCERIDES (test code = 2232) 61 MG/DL <150 HDL CHOLESTEROL (test code = 2220) 64 MG/DL >39 CALC LDL CHOL (test code = 2237) 95 MG/DL <100 NOTE: CALCULATED LDL IS BASED ON FLORINA-WILLS METHOD WHICHINCLUDES ADJUSTABLE TRIGLYCERIDE:VLDL CHOLESTEROL RATIO.THIS FACTOR VARIES BY MEASURED TRIGLYCERIDE AND NON-HDLCHOLESTEROL CONCENTRATIONS WITH INCREASED CALCULATED LDL SEENIN HIGHER TRIGLYCERIDE OR LOWER NON-HDL SPECIMENS. FOR MOREINFORMATION, SEE CLIENT ANNOUNCEMENT AT [email or web address] RISK RATIO LDL/HDL (test code = 2238) 1.48 RATIO <3.55 COMPREHENSIVE METABOLIC [id number] 03:44:45* Test Item Value Reference Range Interpretation Comme nts GLUCOSE (test code = 2217) 110 MG/DL 70-99 H BUN (test code = 2208) 18 MG/DL 6-20 CREATININE (test code = 2214) 1.41 MG/DL 0.80-1.40 H EFFECTIVE 2020, [facility] HAS IMPLEMENTED THE NKF-ASN RECOMMENDED KD-EPI EGFR REFIT CALCULATION THAT DOES NOT INCLUDE A COEFFICIENT FORRACE. FOR MORE INFORMATION, SEE ANNOUNCEMENT [email or web address] HESKA/EGFR_CALC eGFR (2020 CKD-EPI) (test code = 75739) 57 ML/MIN/1.73 >60 L CALC BUN/CREAT (test code = 2235) 13 RATIO 6-28 SODIUM (test code = 223) 147 MEQ/L 133-146 H POTASSIUM (test code = 2228) 3.8 MEQ/L 3.5-5.4 CHLORIDE (test code = 2215) 111 MEQ/L 95-107 H CARBON DIOXIDE (test code = 2206) 24 MEQ/L 19-31 CALCIUM (test code = 2209) 9.4 MG/DL 8.5-10.5 PROTEIN, TOTAL (test code = 2229) 7.4 G/DL 6.1-8.3 ALBUMIN (test code = 2201) 3.9 G/DL 3.5-5.2 CALC GLOBULIN (test code = 2240) 3.5 G/DL 1.9-3.7 CALC A/G RATIO (test code = 2234) 1.1 RATIO 1.0-2.6 BILIRUBIN, TOTAL (test code = 2207) 0.3 MG/DL See_Comment [Automated me ssage] The system which generated this result transmitted reference range: <=1.2. The reference range was not used to interpret this result as normal/abnormal. ALKALINE PHOSPHATASE (test code = 2204) 81 U/L 40-123 AST (test code = 2218) 22 U/L 9-50 ALT (test code = 2219) 16 U/L 5-50 UNLESS OTHERWISE INDICATED, ALL TESTING PERFORMED ATCLINTilana Systems PATHOLOGY [employer] [employer] [address] [place] [address] STUDIO SET UP WORKER: ZACHARY ELLER M.D. CLIA NUMBER [id number] [facility] [place]. [id number] Consult Notes Date/Time Note Provider Source 2024-02-29 10:15:38 [id number] ssociated Order(s): CONSULT [facility]Y [facility] Cardiology Consult NotePatient: David Graham of : 1960MRN: [id number] of [facility]: [facility] Physician: Savannah Benitez COMPLAINT:Chief ComplaintPatient presents withSWELLINGArm rightHISTORY OF PRESENT ILLNESS:David Felton is a 64 year old male presented to the ER for evaluation for right arm swelling.History from patient/family.Patient seen and examined in the room.Pertinent cardiac related history reviewed from chartPresented to the ED secondary to swellig of arm that started this morning. Noted to have ID thrombosis.Cardiology consulted prior history of CAD/valve replacement along with elevated NT-proBNP.CHENEY NYHA class II stable. No worsening CHENEY history no elicited.No chest pain at rest. No PND or orthopnea. No pedal edema. No exertional palpitations or palpitations at rest. No syncopal attacks.PMH of s/p AVR, CAD s/p CABG, DM,MS s/p MVR HFpEF, CKD 3, HTNHistory of HFpEF, CKD 3, HTN, S/P MVR (29mm [facility] Epic tissue prosthesis) 02/13/2023S/P AVR (21mm [facility] Epic Supra tissue prosthesis) 02/13/2023S/P CABG x 1 (GARCIA-LAD) on 02/13/2023 02/13/2023He had a complicated hospital stay. 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 P AST MEDICAL HISTORYPast Medical History:Diagnosis DateAortic stenosisCHF (congestive heart failure)CKD (chronic kidney disease) stage 3, GFR 30-59 ml/min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 12/04/2022iabetesHistory of COVID-19 03/01/2022HTN (hypertension)Mitral stenosisS/P AVR (21 [facility] [employer] Epic Supra tissue prosthesis) 02/13/2023S/P CABG x 1 (GARCIA-LAD) on 02/13/2023 02/13/2023S/P MVR (29mm [facility] Epic tissue prosthesis) 02/13/2023ast Surgical History:Procedure Laterality DateAORTIC VALVE REPLACEMENT N/A 02/13/2023Surgeon: Burke Long MD; [facility]IOGRAM Bilateral 03/25/2023Surgeon: Charles Collado MD; Location: [facility]ATIONARTERIOGRAM Bilateral 03/29/2023Surgeon: Charles Collado MD; Location: [facility] OR LOCATIONBELOW THE KNEE AMPUTATION Bilateral 03/29/2023Surgeon: Charles Collado MD; Location: [facility] LOLACORONARY ARTERY BYPASS GRAFT N/A 02/13/2023Surgeon: Burke Long MD; Location: [facility] LOCATIONEXPLORATORY LAPAROTOMY 2015diverticulitisMITRAL VALVE REPLACEMENT N/A 02/13/2023Surgeon: Burke Long MD; Location: [facility] OR LOCATIONFamily HistoryProblem Relation Age of OnsetStroke MotherCoronary Heart Disease MotherMI @ 60Cancer FatherHypertension SisterHypertension BrotherSOCIAL HISTORYSocial HistorySocioeconomic HistoryMarital status: MarriedNumber of children: 1Tobacco UseSmoking status: FormerCurrent packs/day: 0.00Average packs/day: 0.5 packs/day for 30.0 years (15.0 ttl pk-yrs)Types: CigarettesStart date: 1972Quit date: 2003Years since quittin.5Passive exposure: PastSmokeless tobacco: NeverTobacco comments:Quit 34 years agoSubstance and Sexual ActivityAlcohol use: Not CurrentlyAlcohol/week: 9.0 standard drinks of alcoholTypes: 6 Cans of beer, 3 Shots of liquor per weekComment: drank a "whole lot" he states "everyday" until about 10 years agoDrug use: Not CurrentlySocial Determinants of HealthFinancial Resource Strain: High Risk (08/09/2023)Overall Financial Resource Strain (CARDIA)Difficulty of Paying Living Expenses: HardFood Insecurity: Food Insecurity Present (08/09/2023)Hunger Vital SignWorried About Running Out of Food in the Last Year: Sometimes trueRan Out of Food in the Last Year: Sometimes trueTransportation Needs: Unmet Transportation Needs (08/09/2023)PRAPARE - TransportationLack of Transportation (Medical): YesLack of Transportation (Non-Medical): YesPhysical Activity: Inactive (08/09/2023)Exercise Vital SignDays of Exercise per Week: 0 daysMinutes of Exercise per Session: 0 minStress: Stress Concern Present (08/09/2023)[employer] [place] [employer] - Occupational Stress QuestionnaireFeeling of Stress : To some extentSocial Connections: Socially Integrated (08/09/2023)Social Connection and Isolation Panel [NHANES]Frequency of Communication with Friends and Family: More than three times a weekFrequency of Social Gatherings with Friends and Family: More than three times a weekAttends Jehovah'S Witness Services: More than 4 times per yearActive Member of Clubs or Organizations: YesAttends Club or Organization Meetings: More than 4 times per yearMarital Status: MarriedIntimate Partner Violence: Not At Risk (08/09/2023)Humiliation, Afraid, Rape, and Kick questionnaireFear of Current or Ex-Partner: NoEmotionally Abused: NoPhysically Abused: NoSexually Abused: NoHousing Stability: Low Risk (08/09/2023)Housing Stability Vital SignUnable to Pay for Housing in the Last Year: NoNumber of Places Lived in the Last Year: 1Unstable Housing in the Last Year: NoALLERGIESAllergiesAllergen ReactionsHeparin Other - See commentsHIT +MEDICATIONSCurrent Discharge Medication ListSTOP taking these medicationsamLODIPine 10 mg tablet Comments:Reason for Stopping:bumetanide 1 mg tablet Comments:Reason for Stopping:carvediloL 12.5 mg tablet Comments:Reason for Stopping:atorvastatin 40 mg tablet Comments:Reason for Stopping:clopidogreL 75 mg tablet Comments:Reason for Stopping:aspirin 81 mg EC tablet Comments:Reason for Stopping:NOVOLIN 70/30 U-100 INSULIN 100 unit/mL (70-30) suspension Comments:Reason for Stopping:Diclofenac Sodium (VOLTAREN) 1 % gel Comments:Reason for Stopping:flash glucose sensor (FREESTYLE CHIDI 2 SENSOR) Kit Comments:Reason for Stopping:lidocaine 5 % ointment Comments:Reason for Stopping:blood sugar diagnostic (RELION PRIME TEST STRIPS) strip Comments:Reason for Stopping:Blood-Glucose Meter (RELION PRIME METER) Misc Comments:Reason for Stopping:Insulin [place], Disposable, 31 gauge x 5/16" Ndle Comments:Reason for Stopping:lancets 30 gauge Misc Comments:Reason for Stopping:Current Facility-Administered Medications:amLODIPine (NORVASC) tablet 10 mg, 10 mg, Oral, DAILY, Bernadine Che MD, 10 mg at 02/29/24 0937atorvastatin (LIPITOR) tablet 40 mg, 40 mg, Oral, DAILY, Bernadine Che MD, 40 mg at 02/29/24 0937bumetanide (BUMEX) injection 1 mg, 1 mg, Slow IV Push, Q12H, Bernadine Che MD, 1 mg at 02/29/24 0937carvediloL (COREG) tablet 12.5 mg, 12.5 mg, Oral, BID MEALS, Bernadine Che MD, 12.5 mg at 02/29/24 0937clopidogreL (PLAVIX) 75 mg tablet 75 mg, 75 mg, Oral, DAILY, Bernadine Che MD, 75 mg at 02/29/24 0937dextrose 50 % in water (D50W) injection 25 mL, 25 mL, Slow IV Push, PRN, Bernadine Che MDfondaparinux (ARIXTRA) syringe 10 mg, 10 mg, Subcutaneous, Q24H, Bernadine Che MD, 10 mg at 02/29/24 0939glucagon (GLUCAGEN DIAGNOSTIC KIT) injection 1 mg, 1 mg, Intramuscular, PRN, Bernadine Che MDinsulin NPH and regular human 70-30 (70-30 U-100 INSULIN) 100 unit/mL (70-30) injection 10 Units, 10 Units, Subcutaneous, QAM+PM, Bernadine Che MD, 5 Units at 02/29/24 0936Sliding Scale Insulin-Regular, , Subcutaneous, AC+HS, Bernadine Che MDacetaminophen (TYLENOL) tablet 650 mg, 650 mg, Oral, Q6HPRN, Bernadine Che MDhydralAZINE (APRESOLINE) injection 10 mg, 10 mg, Slow IV Push, Q4HPRN, Bernadine Che MD, 10 mg at 02/29/24 0439HYDROcodone-acetaminophen (NORCO 5) 5-325 mg tablet 1 tablet, 1 tablet, Oral, Q6HPRN, Bernadine Che, MDmorphine (2 mg/mL) injection 2 mg, 2 mg, Slow IV Push, Q4HPRN, Bernadine Che MDondansetron (ZOFRAN (PF)) injection 4 mg, 4 mg, Slow IV Push, Q6HPRN, Bernadine Che MDREVIEW OF SYSTEMS:Comprehensive 10-system review was conducted and were negative except for what's noted in the HPI. The following systems were reviewed: Constitutional, cardiovascular, respiratory, gastrointestinal, genitourinary, musculoskeletal, neurologic, psychiatric, endocrinological, and hematological.PHYSICAL EXAMINATION:Vitals:02/29/24 0058 02/29/24 0346 02/29/24 0606 02/29/24 0721BP: (!) 161/61 (!) 171/72 (!) 162/63 (!) 154/60Pulse: 61 63 68 67Resp: 18 18Temp: 36.6 ?C (97.9 ?F) 36.6 ?C (97.8 ?F)TempSrc: Temporal ArterySpO2: 93% 93%Weight: 103.5 kg (228 lb 1.6 oz)Height:General: no apparent distressHEENT: normocephalic atraumaticNeck: supple, no lymphadenopathy, no bruits, no JVDLungs: clear to auscultation bilaterally. No wheezes or rhonchi. No increased work of breathing.Cardio: Regular rate and rhythm, S1&S2 normal, no murmurs, rubs or gallopsAbdomen: soft; non-tender; non-distended; normoactive bowel sounds.: not examinedRectal: not examinedExtremities: no clubbing, cyanosis, or edema.Skin: no rashes, no visible lesions.Neuro: no gross focal deficitsLABS - Reviewed pertinent labs as below:CBC BMP PT/INRWBC (10*3/?L)Date Value02/28/2024 9.98NA (mmol/L)Date Value02/28/2024 139No results found for: "PT"PLT (10*3/?L)Date Value02/28/2024 218K (mmol/L)Date Value02/28/2024 3.7INR (no units)Date Value02/28/2024 1.1HGB (g/dL)Date Value02/28/2024 14.5BUN (mg/dL)Date Value02/28/2024 27 (H)HCT (%)Date Value02/28/2024 46.1CREATININE (mg/dL)Date Value02/28/2024 1.89 (H)LIPID PROFILEGLUCOSE (mg/dL)Date Value02/28/2024 121 (H)CHOL (mg/dL)Date Value10/25/2023 114 (L)TSH LDL CHOL (mg/dL)Date Value10/25/2023 43TSH (mIU/L)Date Value10/25/2023 2.94CARDIAC ENZYMES HDL (mg/dL)Date Value10/25/2023 27 (L)CK (U/L)Date Value10/02/2022 85TRIG (mg/dL)Date Value10/25/2023 218 (H)LFTs No results found for: "CKMB"AST(SGOT) (U/L)Date Value02/28/2024 20TROPONIN I (ng/mL)Date Value02/28/2024 0.025ALTv (U/L)Date Value02/28/2024 9No results found for: "BNP"LDL CHOL (mg/dL)Date Value10/25/2023 43Recent Labs229594YWIDFQ 0.025Recent Labs534316KBZJ 218*LDL CHOL (mg/dL)Date Value10/25/2023 43NT-proBNP (pg/mL)Date Value02/29/2024 1,650 (H)02/28/2023 9,040 (H)ASSESSMENT/PLANPrincipal Problem:Arm swellingActive Problems:Elevated brain natriuretic peptide (BNP) levelEssential hypertensionDyslipidemiaType 2 diabetes mellitus with other specified complicationPulmonary hypertensionNonrheumatic mitral valve stenosisStage 3b chronic kidney disease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S/P MVR (29mm [facility] Jefferson Epic tissue prosthesis)S/P AVR (21mm [facility] Jefferson Epic Supra tissue prosthesis)S/P CABG x 1 (GARCIA-LAD) on 3Chronic combined systolic and diastolic heart failureRight IJ DVT:Currently on fondarinux for DVT. Rx/workup as primary team.Chronic HFmrEF: Volume status is stable. No evidence of any volume overload noted.CHENEY NYHA class II stable. No worsening CHENEY history elicited.May continue home dose of Bumex 1 mg daily.Recent Labs830777JXCRAN 0.025NT-proBNP (pg/mL)Date Value02/29/2024 1,650 (H)02/28/2023 9,040 (H)Severe mitral stenosis, severe aortic stenosis-status post bioprosthetic valve replacement. RONI in March 2023 showed normal valve parameters. Recommended antibiotics prophylaxis for dental procedures. Continue aspirin 81 daily.CAD: Status post GARCIA to LAD single-vessel bypass.Continue Lipitor, aspirin, and Plavix.Continue carvedilol 12.5 twice daily along with amlodipine 10 daily.Plan to be discharged on DOAC, may DC Plavix. Continue only with aspirin/DOAC at the time of bjplhxulgN5GR: Rx as primary team.CKD, Stage 3: at baseline: Rx as per primary team.HTN: Stable:Continue with amlodipine 10 daily, coreg 12.5 twice dailyDyslipidemia: Continue Lipitor 40 mg daily.Pulmonary hypertension: The setting of heart failure/valve replacement.Will monitor. Continue with Bumex home dose 1 mg daily.My diagnostic impression and treatment plans were discussed at length with the patient and family member present. All side effects as well as drug-drug interactions and risks discussed at length. Ample opportunity was offered and encouraged to ask questions during this visit and patient appreciated the answers given by me and verbzalised statisfcation in the answers given.Thank you for allowing us to participate in the care of David Felton.If you have any questions or concerns please feel free to call our office at [phone]. I would be happy to be of further assistance for David Felton wellbeing.Voice recognition software has been used to create portions of this document. An attempt to proofread has been made to minimize errors. Please do not hesitate to call with any questions.Johnny Lang MD 02/29/2024 10:15 AMAssistant Professor, Division of CardiologyUnCHRISTUS [facility] [place] [address]-5Btwries lstoAQ3198-67-67L09:59:14Consult noteTXT1.2.840.135381.1.13.104.2.7.2.28072 9|[id number] for patient gayx42151-0Bbctwpk noteLNNARRATIVEFormatted C-CDA narrative textUTCARLSBAD MEDICAL CENTER - [address] Az[id number] QYMYVMBEMJJYKAQQ4176-62-96S47:59:141.2.840 .814481.1.72.3.15|1.2.840.488290.1.13.104. 2.7.2.727879_[id number] [facility] - Health History and Physical Notes Date/Time Note Provider Source 2024-02-28 23:24:20 0015-18-09V56:24:20F ormatting of this note is different from the original.MEDICINE MEGAUT ADMIT H&PDate of Service: 02/29/2024HIEF COMPLAINT: swelling of right armSubjectiveHistory of Present Muhixht16 yo male with pmh of s/p AVR, CAD s/p CABG, DM,MS s/p MVR HFpEF, CKD 3, HTN who presents to the ED secondary to swellig of arm that started this morning. Associated symptoms: productive cough (clear)PAST MEDICAL HISTORYPast Medical History:Diagnosis DateAortic stenosisCHF (congestive heart failure)CKD (chronic kidney disease) stage 3, GFR 30-59 ml/min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 12/04/2022iabetesHistory of COVID-19 03/01/2022HTN (hypertension)Mitral stenosisS/P AVR (21 [address] Jefferson Epic Supra tissue prosthesis) 02/13/2023S/P CABG x 1 (GARCIA-LAD) on 02/13/2023 02/13/2023S/P MVR (29mm St Jefferson Epic tissue prosthesis) 02/13/2023ast Surgical History:Procedure Laterality DateAORTIC VALVE REPLACEMENT N/A 02/13/2023Surgeon: Burke Long MD; [facility]ATIONARTERIOGRAM Bilateral 03/25/2023Surgeon: Charles Collado MD; [facility] LOCATIONARTERIOGRAM Bilateral 03/29/2023Surgeon: Charles Collado MD; Location: [facility] LOLABELOW THE KNEE AMPUTATION Bilateral 03/29/2023Surgeon: Charles Collado MD; Location: [facility] OR LOCATIONCORONARY ARTERY BYPASS GRAFT N/A 02/13/2023Surgeon: Burke Long MD; Location: [facility] LOCATIONEXPLORATORY LAPAROTOMY 2015diverticulitisMITRAL VALVE REPLACEMENT N/A 02/13/2023Surgeon: Burke Long MD; Location: [facility] OR LOCATIONFamily HistoryProblem Relation Age of OnsetStroke MotherCoronary Heart Disease MotherMI @ 60Cancer FatherHypertension SisterHypertension BrotherALLERGIESAllergiesAllergen ReactionsHeparin Other - See commentsHIT +MEDICATIONSNo current facility-administered medications on file prior to encounter.Current Outpatient Medications on File Prior to EncounterMedication Sig Dispense RefillamLODIPine 10 mg tablet Take 1 tablet by mouth in the morning. 30 tablet 3bumetanide 1 mg tablet Take 1 tablet by mouth in the morning. 90 tablet 3carvediloL 12.5 mg tablet Take 1 tablet by mouth in the morning and 1 tablet in the evening. Take with meals. 60 tablet 3atorvastatin 40 mg tablet Take 1 tablet by mouth in the morning. 90 tablet 3clopidogreL 75 mg tablet Take 1 tablet by mouth in the morning. 90 tablet 3aspirin 81 mg EC tablet Take 1 tablet by mouth in the morning. 90 tablet 3NOVOLIN 70/30 U-100 INSULIN 100 unit/mL (70-30) suspension INJECT 22 UNITS SUBCUTANEOUSLY TWICE DAILY BEFORE BREAKFAST AND BEFORE SUPPER (Patient taking differently: 20 Units 2 (two) times daily before breakfast and dinner.) 20 mL 0Diclofenac Sodium (VOLTAREN) 1 % gel Take 2-4 grams three times a day as needed for pain 100 g 3flash glucose sensor (FREESTYLE CHIDI 2 SENSOR) Kit 1 Each every 14 (fourteen) days. 2 Kit 11lidocaine 5 % ointment Apply to area(s) 2 (two) times daily. 50 g 2blood sugar diagnostic (RELION PRIME TEST STRIPS) strip Use as directed 35 Each 3Blood-Glucose Meter (RELION PRIME METER) Misc Use as directed 1 Each 0Insulin [place], Disposable, 31 gauge x 5/16" Ndle Use as directed 200 Each 2lancets 30 gauge Misc Use as directed 50 Each 3I attest that the foregoing medication list in the medical record is true, accurate and complete to the best of my knowledge.SOCIAL HISTORYSocial HistorySocioeconomic HistoryMarital status: MarriedNumber of children: 1Tobacco UseSmoking status: FormerCurrent packs/day: 0.00Average packs/day: 0.5 packs/day for 30.0 years (15.0 ttl pk-yrs)Types: CigarettesStart date: 1972Quit date: 2003Years since quittin.5Passive exposure: PastSmokeless tobacco: NeverTobacco comments:Quit 34 years agoSubstance and Sexual ActivityAlcohol use: Not CurrentlyAlcohol/week: 9.0 standard drinks of alcoholTypes: 6 Cans of beer, 3 Shots of liquor per weekComment: drank a "whole lot" he states "everyday" until about 10 years agoDrug use: Not CurrentlySocial Determinants of HealthFinancial Resource Strain: High Risk (08/09/2023)Overall Financial Resource Strain (CARDIA)Difficulty of Paying Living Expenses: HardFood Insecurity: Food Insecurity Present (08/09/2023)Hunger Vital SignWorried About Running Out of Food in the Last Year: Sometimes trueRan Out of Food in the Last Year: Sometimes trueTransportation Needs: Unmet Transportation Needs (08/09/2023)PRAPARE - TransportationLack of Transportation (Medical): YesLack of Transportation (Non-Medical): YesPhysical Activity: Inactive (08/09/2023)Exercise Vital SignDays of Exercise per Week: 0 daysMinutes of Exercise per Session: 0 minStress: Stress Concern Present (08/09/2023)[employer] [place] [employer] - Occupational Stress QuestionnaireFeeling of Stress : To some extentSocial Connections: Socially Integrated (08/09/2023)Social Connection and Isolation Panel [NHANES]Frequency of Communication with Friends and Family: More than three times a weekFrequency of Social Gatherings with Friends and Family: More than three times a weekAttends Jehovah'S Witness Services: More than 4 times per yearActive Member of Clubs or Organizations: YesAttends Club or Organization Meetings: More than 4 times per yearMarital Status: MarriedIntimate Partner Violence: Not At Risk (08/09/2023)Humiliation, Afraid, Rape, and Kick questionnaireFear of Current or Ex-Partner: NoEmotionally Abused: NoPhysically Abused: NoSexually Abused: NoHousing Stability: Low Risk (08/09/2023)Housing Stability Vital SignUnable to Pay for Housing in the Last Year: NoNumber of Places Lived in the Last Year: 1Unstable Housing in the Last Year: NoREVIEW OF SYSTEMSReview of SystemsConstitutional: Negative.HENT: Negative.Eyes: Negative.Respiratory: Positive for cough (productive). Negative for apnea, choking, chest tightness, shortness of breath, wheezing and stridor.Breasts: Negative.Cardiovascular: Negative.Gastrointestinal: Negative.Genitourinary: Negative.Musculoskeletal: Negative.Right arm swellingSkin: Negative.Neurological: Negative.Psychiatric/Behavioral: Negative.Endocrine: Endocrine negativeObjectivePHYSICAL EXAMINATIONVitals:02/28/24 2236 02/28/24 2240 02/28/24 2326 02/28/24 2355BP: (!) 160/62Pulse: 61 62Resp: 18 21Temp: 36.6 ?C (97.8 ?F)TempSrc:SpO2: 92% 93%Weight: 105 kg (231 lb 7.7 oz) 105 kg (231 lb 7.7 oz)Height: 1.88 m (6' 2.02") 1.88 m (6' 2.02")Physical ExamVitals and nursing note reviewed.Constitutional:General: He is not in acute distress.Appearance: Normal appearance. He is not ill-appearing, toxic-appearing or diaphoretic.HENT:Head: Normocephalic and atraumatic.Right Ear: External ear normal.Left Ear: External ear normal.Nose: Nose normal. No congestion.Mouth/Throat:Mouth: Mucous membranes are moist.Pharynx: No oropharyngeal exudate or posterior oropharyngeal erythema.Eyes:General: No scleral icterus.Extraocular Movements: Extraocular movements intact.Conjunctiva/sclera: Conjunctivae normal.Pupils: Pupils are equal, round, and reactive to light.Cardiovascular:Rate and Rhythm: Normal rate and regular rhythm.Heart sounds: No murmur heard.No friction rub. No gallop.Pulmonary:Effort: Pulmonary effort is normal. No respiratory distress.Breath sounds: Normal breath sounds. No wheezing or rales.Chest:Chest wall: No tenderness.Abdominal:General: Abdomen is flat. Bowel sounds are normal. There is no distension.Palpations: Abdomen is soft.Tenderness: There is no abdominal tenderness. There is no guarding.Musculoskeletal:General: Swelling (right arm) present. Normal range of motion.Cervical back: Normal range of motion and neck supple.Right lower leg: No edema.Left lower leg: No edema.Skin:General: Skin is warm and dry.Neurological:Mental Status: He is alert.Psychiatric:Mood and Affect: Mood normal.Behavior: Behavior normal.Thought Content: Thought content normal.Judgment: Judgment normal.LABS/IMAGING - reviewedExam: XR CHEST 1 VW, 02/28/2024 5:15 PM.Ordering Physician: STEPHANIE DENNIS.History: arm swelling, wheezing .Technique: One view of the chest.Comparison: None.Findings:Blunting of the bilateral costophrenic angles. Prominent pulmonaryinterstitium with hazy opacities in the right lower lobe. No pneumothorax.Cardiomegaly. Sternotomy wires and mediastinal surgical changes.IMPRESSIONImpression:pulmonary edema. US Right arm: Positive for DVT of the Right Internal Jugular veinCharisNo Felton is a 64 year old male with PMH as listed above, admitted to the hospital with:Right IJ DVT:-- Started on fondarinuxAcute exacerbation of CHF (congestive heart failure):-- Continue active diuresis-- Daily weights, strict intake/output, free water restriction-- Check serial troponin levels3. DM/hyperglycemia:-- Will continue with insulin 70/30 and insulin sliding scale4. CKD, Stage 3: at baseline5. HTN:-- Will continue with amlodipine, coregProphylaxis: DVT- fondarinuxCode Status: Full Code 55376-5Zyvniut and physical dgegIR2110-44-86Y60:30:27History and physical noteTXT1.2.840.405850.1.13.104.2.7.2.596182 |[id number] for patient pczi04053-9Knhnkzv and physical noteLNNARRATIVEFormatted C-CDA narrative textUTMBMESILLA VALLEY HOSPITAL - [address] Qvsj[id number] KRBDVNCSRJKYHGG9726-84-19A05:30:271.2.840.1 53798.1.72.3.15|1.2.840.989934.1.13.104.2.7 .2.727879_[id number] [facility] Notes Date/Time Note Provider Source 2024-03-24 11:31:14 1245-63-53W59:31:14 Call placed to pts - Kaylynn Felton, reports pt is no longer experiencing diarrhea. Information communicated for future reference. 04856-3Nzyqhyslg encounter RqxbCK5744-02-13Y90:31:59Telephone encounter NoteTXT1.2.840.268355.1.13.104.2.7. 2.421567|[id number] for patient pwmv25982-6EnutTYZSTHRXZIDNnyxaujpq C-CDA narrative [id number] Veto Goldstein RN[address] [id number] 8TJSGMLVFQBXVIEAALVJPBR4649-95-53L6 1:31:591.2.840.485542.1.72.3.15|1.2 .840.712189.1.13.104.2.7.2.727879_2 [id number] Ariane Goldstein RN [facility] 2024-03-24 10:36:34 2419-79-58H36:36:34 Informed disability office and pt daughter forms was addressed to a different provider Dr Celso Ravi. 42945-0Ktehiipco encounter FedgGI1931-56-54Q66:38:18Telephone encounter NoteTXT1.2.840.355181.1.13.104.2.7. 2.407196|[id number] for patient wuow15509-8DwtlEYDWXBAYDOSTvmhkwqok C-CDA narrative [id number] D BouldenUT[address] Martin [id number] 3RUDKOHSXOBDIMPVBDVXXPZ3979-86-16T4 0:38:181.2.840.304995.1.72.3.15|1.2 .840.305673.1.13.104.2.7.2.727879_2 [id number] Alida Garsia [facility] 2024-03-24 10:19:24 7803-60-56B38:19:24 Is patient still having diarrhea?Probiotics and cameroonian yougurt 98057-5Yfalgzfsu encounter PksrDB4821-17-00V55:20:01Telephone encounter NoteTXT1.2.840.090636.1.13.104.2.7. 2.421384|[id number] for patient xodt06099-3TogpDEQFGMZRFWGRpahpbzee C-CDA narrative Avaz[address] Yh[id number] 3YWAJPIPVZRCCEWZXCIIJRA8618-16-45I2 0:20:011.2.840.465614.1.72.3.15|1.2 .840.761803.1.13.104.2.7.2.727879_2 [id number] [facility] 2024-03-23 08:50:50 9020-54-26Z25:50:50 Images from the original note were not included.Forms placed in nurse folder. 91404-7Elcdejwyv encounter TcsbOB0682-91-82O50:51:25Telephone encounter NoteTXT1.2.840.953204.1.13.104.2.7. 2.881761|[id number] for patient ggqd47364-4HrreYUUYELIHZDLTbkgshsyu C-CDA narrative text70 [address] StreetUvlwT[id number] 4VNDPPZNJLXEUKHLVRJTULZ8078-85-47O0 8:51:251.2.840.739878.1.72.3.15|1.2 .840.863879.1.13.104.2.7.2.727879_2 [id number] [facility] 2024-03-19 13:04:17 0457-78-82W16:04:17 Routed to provider to review . Jania Stovall MA 03/19/2024 1:04 PM 04372-1Oiwxunpna encounter RcbnNY2791-63-02H87:04:56Telephone encounter NoteTXT1.2.840.083927.1.13.104.2.7. 2.861069|[id number] for patient iogn97580-4OiqwDMVTXFLIWCDQqcjogyoi C-CDA narrative [id number] Davila [address]vdG[id number] 2QEAFQVLJVQXHRWZOVJCJIF1872-70-55M8 3:04:561.2.840.766217.1.72.3.15|1.2 .840.204132.1.13.104.2.7.2.727879_2 [id number] Jania Stovall MA [facility] 2024-03-19 12:03:40 4023-41-82F86:03:40 David Felton is a 64 year old malePts is wanting to ask what the pt can take for diarrhea that won't interfere with his prescriptions. Please advise. ([phone] (work) 22054-3Jckysssvw encounter NmxdUB6537-73-84E70:05:36Telephone encounter NoteTXT1.2.840.064130.1.13.104.2.7. 2.492007|[id number] for patient ffaz07352-2LvfkDSWRAXFJHXTFfgmynnqt C-CDA narrative orgp473868211Zzvn Elliott[address] [id number] 1FRZNKNGMZWQQFRIWYTLXIH7842-98-46R9 2:05:361.2.840.579638.1.72.3.15|1.2 .840.506441.1.13.104.2.7.2.727879_2 [id number] Polly Gallagher [facility] 2024-03-03 14:39:54 8436-02-16T26:39:54 Prescriptions for prosthetics and electric wheelchair sent over to [facility] [phone].Conformation received.Jo Ann [place] 02386-0Ocorpndrh encounter RftoLX5162-13-04G45:40:49Telephone encounter NoteTXT1.2.840.559785.1.13.104.2.7. 2.547759|2599901246KEAijqayrvg for patient hjsa12424-2VcjyVQHLDGEAVYFYjwsslqkd C-CDA narrative text[address] [id number] 8ERAJMGXMKXTPZECUNLQYOM8917-16-35H2 4:40:491.2.840.613286.1.72.3.15|1.2 .840.803242.1.13.104.2.7.2.727879_2 [id number] [facility] 2024-03-03 13:52:46 4334-54-62D74:52:46 TRANSITIONAL CARE MANAGEMENT ASSESSMENT03/03/2024David FeltonOdufs496289ZCngx Green is a 64 year old Black or male was admitted on 02/28/24 to [facility], ADC MED SURG. He was discharged on 03/02/24 with discharge disposition of HR- Routine Discharge.Admitting Physician: Samantha Che Diagnosis: Right IJ DVT:Linked EpisodesType: Episode: Status: Noted: Resolved: Last update: Updated by:TRANSITION OF CARE TCM Active 03/02/2024 03/03/2024 1:51 PM Karen Benavides RNComments:03/02/2024TCM Qqv-ybxz-ee-face outreach documentation:Discharge AssessmentChart Assessed: 03/03/24TCM Outreach Completed: 03/03/24Do you have a few minutes to speak with me about how you are doing at home?: YesDischarge InstructionsDo you understand your at-home instructions?: YesMedicationsHave you filled your prescriptions and do you have them in your home? : YesDo you know how to take your medications?: YesSuppliesDid you receive applicable home medical supplies/equipment?: N/AFollow Up AppointmentHas a follow up appointment been scheduled?: YesDo you have any questions about your follow up appointments?: NoAre you able to get to your appointment? Who will be taking you?: YesW[facility]Has the [facility] health nurse contacted you since you've been home?: N/ASurvey - RecognitionDo you have any other questions or concerns at this time?: NoFuture Appointments:Future AppointmentsProvider Department Dept Phone03/11/2024 1:30 PM Savannah Grande NP [facility]In[facility] [phone]/08/2024 3:00 PM Noel Moreland MD [facility] Health [facility]iologyUcsf [facility] [phone] signed by Karen Benavides RN at 03/03/2024 1:53 PM BGK68277-3Dnleawehy encounter CappHM5275-88-03J85:53:26Telephone encounter NoteTXT1.2.840.894512.1.13.104.2.7. 2.432625|[id number] for patient wgxr06545-9MidjMHNJLKILRYTZkutcrfmk C-CDA narrative [id number] M Manrique [address]vdG[id number] 4YHLAYQZSIBDXHSERQURJEE0540-08-13C2 3:53:261.2.840.940544.1.72.3.15|1.2 .840.736014.1.13.104.2.7.2.727879_2 [id number] Karen Benavides RN [facility] 2024-03-03 09:57:21 7351-68-37U05:57:21 Forwarding to provider for orders is appropriate. 54780-5Zqnlznjzd encounter BlhdBT9321-12-45I28:57:44Telephone encounter NoteTXT1.2.840.483362.1.13.104.2.7. 2.980073|[id number] for patient uqyz40775-2ZhcqYAUVUZBOEZXQlglnipeh C-CDA narrative [id number] Garcia V, RN[address] XgmaIrbskchskTzuziepjyWTMH913260508 6IRYVLJCLBRDVGALTDCWTPB4512-01-38S8 9:57:441.2.840.502793.1.72.3.15|1.2 .840.386722.1.13.104.2.7.2.727879_2 [id number] Ariane Goldstein RN [facility] 2024-03-03 09:47:51 0747-12-91A31:47:51 Images from the original note were not included. 63230-2Pzqonorye encounter CmzqPB4391-17-30Z43:48:56Telephone encounter NoteTXT1.2.840.425032.1.13.104.2.7. 2.547374|[id number] for patient tfsw25227-4KwpxWSPCCBNLOWIFmxkggdqw C-CDA narrative [id number] D [address] DdfaHwjyfsuhvYwdmfbhzlGXMM519133381 6RRNDUQNRPUDIBLZLYWOXOF2675-57-24W2 9:48:561.2.840.057449.1.72.3.15|1.2 .840.457029.1.13.104.2.7.2.727879_2 [id number] Alida Francisco [facility] 2024-03-03 09:36:06 2352-22-95S39:36:06 Pt EC - Spouse states when he was admitted the were giving pt a different dose of Insulin, states if BS was 112 the would only give half the dose (10 units), would like to know if she should continue with this or what was discussed at last OV. Per ER note: T2DM: Rx as primary team.Assessment & Plan []Expand by DefaultRight IJ DVT:Had severe allergic reaction to heparin in the past and lost both lower limbs as a result-- Change fondarinux to Eliquis--If tolerates Eliquis, dc tomorrow.Acute exacerbation of CHF (congestive heart failure), presumed diastolic-- Continue active diuresis-- Daily weights, strict intake/output, free water restriction-- Check serial troponin levels--Echo pending--Cardiology consulted , appreciate input3. DM/hyperglycemia:-- Will continue with insulin 70/30 and insulin sliding scaleDisp Refills Start End DAWNOVOLIN 70/30 U-100 INSULIN 100 unit/mL (70-30) suspension 20 mL 0 02/28/2024 -- NoSig: INJECT 22 UNITS SUBCUTANEOUSLY TWICE DAILY BEFORE BREAKFAST AND BEFORE SUPPERPatient taking differently: 20 Units 2 (two) times daily before breakfast and dinner.Sent to pharmacy as: NovoLIN 70/30 U-100 Insulin 100 unit/mL subcutaneous suspension (insulin NPH and regular human 70-30)Class: eRXOrder: [id number]/Time Signed: 02/28/2024 16:09E-Prescribing Status: Receipt confirmed by pharmacy (02/28/2024 4:09 PM CDT)Informed pt to continue medication as discussed with Noreen SAP BOBJ DEVELOPER, I will forward message to provider for review for additional recommendations. Aware she will need follow up appt. Forwarding to provider for review. 61934-9Pfunwfvps encounter FtazGT0144-95-17V77:43:02Telephone encounter NoteTXT1.2.840.561807.1.13.104.2.7. 2.257565|[id number] for patient nbyk71257-8XnmtAFYEPTXXMHZUckucgzrf C-CDA narrative [id number] Veto Goldstein RN[id number] 6EEPTZMQOSBBRWZAJPXRVYH6679-14-46W5 9:43:021.2.840.385263.1.72.3.15|1.2 .840.834407.1.13.104.2.7.2.727879_2 [id number] Ariane Goldstein RN [facility] 2024-03-03 08:46:35 7944-11-12D19:46:35 Pt spouse is requesting to speak to nurse in regards to patient diabetic medication. 43906-3Asynkgood encounter EabiYN6357-21-96K36:49:09Telephone encounter NoteTXT1.2.840.736539.1.13.104.2.7. 2.533377|[id number] for patient gczk47552-6JfwqQLKVHJUGBJERlafcqojl C-CDA narrative [id number] D [id number] 5RRVFUHQJANSPVHNVGSOWIK4614-47-39H4 8:49:091.2.840.805803.1.72.3.15|1.2 .840.211722.1.13.104.2.7.2.727879_2 [id number] Alida Francisco [facility] 2024-03-02 12:58:14 5460-65-19D46:58:14 Problem: PainGoal: Control of pain at or below patient's documented comfort goalOutcome: Adequate for dischargeGoal: Reduction in pain sensationOutcome: Adequate for dischargeProblem: Discharge PlanningGoal: Adequate for dischargeOutcome: Adequate for dischargeGoal: Effective communicationOutcome: Adequate for dischargeProblem: Falls, Risk ofGoal: Absence of fallsOutcome: Adequate for dischargeProblem: Skin integrity Impaired (Risk or Actual)Goal: Prevention of new skin breakdownOutcome: Adequate for dischargeProblem: Venous Thromboembolism, (actual or risk of)Goal: Absence of venous thromboembolism (Risk)Outcome: Adequate for dischargeGoal: Prevent further complications associated with VTE diagnosis (Actual)Outcome: Adequate for dischargeProblem: Respiratory Function - ImpairedGoal: Able to cough effectivelyOutcome: Adequate for dischargeGoal: Adequate oxygenationOutcome: Adequate for dischargeGoal: Adequate work of breathingOutcome: Adequate for discharge 56054-9Yqlw of care mtzwML1758-57-81T81:58:17Plan of care noteTXT1.2.840.553411.1.13.104.2.7. 2.624387|[id number] for patient nwkp94513-1EeflXSHFTSCSDQQJdrjgxvdd C-CDA narrative [id number] Roye RN[id number] 6CWXGZDGRINQDLGSSOYVWBO3185-75-53E6 2:58:171.2.840.384479.1.72.3.15|1.2 .840.638262.1.13.104.2.7.2.727879_2 [id number] Zeny Kemar ROMERO [facility] 2024-03-02 09:20:01 0239-92-23L79:20:01 Called patient, Informed patient that form would be ready by the end of the day today or tomorrow per TRUE Sorto. Patient verbally understood and had no further questions. 78832-5Qvornrkne encounter CjboLL9362-63-69R71:21:00Telephone encounter NoteTXT1.2.840.810953.1.13.104.2.7. 2.163386|[id number] for patient ntbq96081-3InceXLZGGTHNUFNYjaiomocj C-CDA narrative [id number] M Serrano MA[address] Kr[id number] 6YROSTMGUOIQARJRTEIZNOJ9740-23-12T2 9:21:001.2.840.001414.1.72.3.15|1.2 .840.821903.1.13.104.2.7.2.727879_2 [id number] Maddi Torres MA [facility] 2024-03-02 09:05:29 4979-41-59R72:05:29 David Felton is a 64 year old male calling to get an update on forms for this pt. They would like a call back to discuss 35956-4Yeynofxhk encounter DrkwLX5176-07-93M91:06:33Telephone encounter NoteTXT1.2.840.851216.1.13.104.2.7. 2.291718|[id number] for patient dqsy62184-8KotxNRKFOZPDCCIWntbgmbnr C-CDA narrative geok690883836Afcga C Briggs[address] Oq[id number] 6SIWFXLOEZDJPWCVDGNHGWT9809-07-51G4 9:06:331.2.840.879296.1.72.3.15|1.2 .840.544116.1.13.104.2.7.2.727879_2 [id number] Cecilia Perdomo [facility] 2024-03-01 22:47:15 5148-28-46R97:47:15 Problem: PainGoal: Control of pain at or below patient's documented comfort goalOutcome: Progressing as expectedGoal: Reduction in pain sensationOutcome: Progressing as expectedProblem: Discharge PlanningGoal: Adequate for dischargeOutcome: Progressing as expectedGoal: Effective communicationOutcome: Progressing as expectedProblem: Falls, Risk ofGoal: Absence of fallsOutcome: Progressing as expectedProblem: Skin integrity Impaired (Risk or Actual)Goal: Prevention of new skin breakdownOutcome: Progressing as expectedProblem: Venous Thromboembolism, (actual or risk of)Goal: Absence of venous thromboembolism (Risk)Outcome: Progressing as expectedGoal: Prevent further complications associated with VTE diagnosis (Actual)Outcome: Progressing as expectedProblem: Respiratory Function - ImpairedGoal: Able to cough effectivelyOutcome: Progressing as expectedGoal: Adequate oxygenationOutcome: Progressing as expectedGoal: Adequate work of breathingOutcome: Progressing as expected 71144-3Hbjy of care ougtWO6748-90-61B77:47:19Plan of care noteTXT1.2.840.899077.1.13.104.2.7. 2.933892|[id number] for patient swqg04524-7XqrhRRFGZOXLSXPSmzbqgmvs C-CDA narrative [id number] B Askey RNUT[id number] 7YWJKOTFICSENFSJHPPOARC1268-16-68B9 2:47:191.2.840.052693.1.72.3.15|1.2 .840.441949.1.13.104.2.7.2.727879_2 [id number] Mey Judd RN [facility] 2024-03-01 16:03:17 0432-22-84X61:03:17 Problem: PainGoal: Control of pain at or below patient's documented comfort goalOutcome: Progressing as expectedGoal: Reduction in pain sensationOutcome: Progressing as expectedProblem: Discharge PlanningGoal: Adequate for dischargeOutcome: Progressing as expectedGoal: Effective communicationOutcome: Progressing as expectedProblem: Falls, Risk ofGoal: Absence of fallsOutcome: Progressing as expectedProblem: Skin integrity Impaired (Risk or Actual)Goal: Prevention of new skin breakdownOutcome: Progressing as expectedProblem: Venous Thromboembolism, (actual or risk of)Goal: Absence of venous thromboembolism (Risk)Outcome: Progressing as expectedGoal: Prevent further complications associated with VTE diagnosis (Actual)Outcome: Progressing as expectedProblem: Respiratory Function - ImpairedGoal: Able to cough effectivelyOutcome: Progressing as expectedGoal: Adequate oxygenationOutcome: Progressing as expectedGoal: Adequate work of breathingOutcome: Progressing as expected 69091-2Ypwz of care pbqbGW7551-95-92O78:03:21Plan of care noteTXT1.2.840.351498.1.13.104.2.7. 2.948777|[id number] for patient fvtv62281-3JytxZLIPTYXIGIQKedsgulew C-CDA narrative text[id number] 3DLBGFDDMJABASYTEZBYQAH7952-52-96I0 6:03:211.2.840.800849.1.72.3.15|1.2 .840.476531.1.13.104.2.7.2.727879_2 [id number] [facility] 2024-03-01 01:20:51 0549-41-68U67:20:51 Problem: PainGoal: Control of pain at or below patient's documented comfort goalOutcome: Progressing as expectedGoal: Reduction in pain sensationOutcome: Progressing as expectedProblem: Discharge PlanningGoal: Adequate for dischargeOutcome: Progressing as expectedGoal: Effective communicationOutcome: Progressing as expectedProblem: Falls, Risk ofGoal: Absence of fallsOutcome: Progressing as expectedProblem: Skin integrity Impaired (Risk or Actual)Goal: Prevention of new skin breakdownOutcome: Progressing as expectedProblem: Venous Thromboembolism, (actual or risk of)Goal: Absence of venous thromboembolism (Risk)Outcome: Progressing as expectedGoal: Prevent further complications associated with VTE diagnosis (Actual)Outcome: Progressing as expectedProblem: Respiratory Function - ImpairedGoal: Able to cough effectivelyOutcome: Progressing as expectedGoal: Adequate oxygenationOutcome: Progressing as expectedGoal: Adequate work of breathingOutcome: Progressing as expected 17291-4Nidx of care qhhmMD6042-36-50A38:20:55Plan of care noteTXT1.2.840.835479.1.13.104.2.7. 2.528771|7623982343WSCtkcwzudp for patient jmjq05940-3SlvnUZQNIZQYHZPTftriasef C-CDA narrative sxex212121324YobvxnrElena CHIU[address] ZotnRa[id number] 0QLZFXRORLRQJNNLOKESFAD7058-69-51Y7 1:20:551.2.840.187131.1.72.3.15|1.2 .840.242823.1.13.104.2.7.2.727879_2 [id number] Elena Bullock RN [facility] 2024-02-29 16:03:27 7290-97-54K65:03:27 Problem: PainGoal: Control of pain at or below patient's documented comfort goalOutcome: Progressing as expectedGoal: Reduction in pain sensationOutcome: Progressing as expectedProblem: Discharge PlanningGoal: Adequate for dischargeOutcome: Progressing as expectedGoal: Effective communicationOutcome: Progressing as expectedProblem: Falls, Risk ofGoal: Absence of fallsOutcome: Progressing as expectedProblem: Skin integrity Impaired (Risk or Actual)Goal: Prevention of new skin breakdownOutcome: Progressing as expectedProblem: Venous Thromboembolism, (actual or risk of)Goal: Absence of venous thromboembolism (Risk)Outcome: Progressing as expectedGoal: Prevent further complications associated with VTE diagnosis (Actual)Outcome: Progressing as expectedProblem: Respiratory Function - ImpairedGoal: Able to cough effectivelyOutcome: Progressing as expectedGoal: Adequate oxygenationOutcome: Progressing as expectedGoal: Adequate work of breathingOutcome: Progressing as expected 28051-8Yssu of care hwhoGD8033-45-54W15:03:29Plan of care noteTXT1.2.840.222456.1.13.104.2.7. 2.239415|[id number] for patient igqb34412-5NvumAZBUDWOOJMZTjlxlfscy C-CDA narrative textUT[address] BzgtRrcptvkzbHpuezazszGMUY296525763 5KFJOJLQCIAHRCAQACBJGLJ1840-94-26V4 6:03:291.2.840.973564.1.72.3.15|1.2 .840.702028.1.13.104.2.7.2.727879_2 [id number] [facility] 2024-02-29 05:15:32 3549-07-68A66:15:32 Problem: PainGoal: Control of pain at or below patient's documented comfort goalOutcome: Progressing as expectedGoal: Reduction in pain sensationOutcome: Progressing as expectedProblem: Discharge PlanningGoal: Adequate for dischargeOutcome: Progressing as expectedGoal: Effective communicationOutcome: Progressing as expectedProblem: Falls, Risk ofGoal: Absence of fallsOutcome: Progressing as expectedProblem: Skin integrity Impaired (Risk or Actual)Goal: Prevention of new skin breakdownOutcome: Progressing as expectedProblem: Venous Thromboembolism, (actual or risk of)Goal: Absence of venous thromboembolism (Risk)Outcome: Progressing as expectedGoal: Prevent further complications associated with VTE diagnosis (Actual)Outcome: Progressing as expectedProblem: Respiratory Function - ImpairedGoal: Able to cough effectivelyOutcome: Progressing as expectedGoal: Adequate oxygenationOutcome: Progressing as expectedGoal: Adequate work of breathingOutcome: Progressing as expected 78972-9Ghsw of care djvyWC9850-34-28U52:15:35Plan of care noteTXT1.2.840.689041.1.13.104.2.7. 2.960191|[id number] for patient hkbm64142-5RkhiTSBAFSPONNYEtkdlyari C-CDA narrative textUT[address] VxpyBhqhpvjpsKfxzqdwuwKKVK401669809 9XQSRFUJOCLTTWLKFBZKRJJ0278-49-52V1 5:15:351.2.840.052647.1.72.3.15|1.2 .840.929505.1.13.104.2.7.2.727879_2 [id number] [facility] 2024-02-28 22:12:00 2668-80-30Y31:12:00 Patient admitted to [facility] for diagnosis of arm swelling, acute pulmonary edema, and DVT.Patient agrees to admission, discussed plan of care with patient and family.Patient is awake, A&Ox 4, RR even and unlabored on RA. Color appropriate for race. PIV intact x 1.No adverse reaction to medications administered while in ED.Belongings with patient to unit. 79265-8Opbfgmkwk department BsndRU6894-04-01F93:28:00[facility] department NoteTXT1.2.840.115982.1.13.104.2.7. 2.779172|[id number] for patient qwod81764-2IjqpXYVCSZKSQQCZfvzqiumc C-CDA narrative qpyw648914206GjpqtdAngelica CHIU[id number] 0IRGKPMEVCUAFTTYOMXWMIG6649-35-59D4 9:28:001.2.840.704724.1.72.3.15|1.2 .840.013908.1.13.104.2.7.2.727879_2 [id number] Angelica Weiss RN [facility] 2024-02-28 22:02:01 6754-34-96U69:02:01 Nurse ReportReport given to Mary Ann ROMERO. Chief complaint, assessment findings, infusion verify and orders reviewed. [address]46-6Krlukdw[address] SqneRT9206-67-14P11:02:08[facility] NoteTXT1.2.840.331860.1.13.104.2.7. 2.929552|[id number] for patient kmpn04708-0ArnkKELLHTQJEREBjvaessle C-CDA narrative text[id number] 7BTBHVLZOAWZOMSCSFILFZF0363-19-75Q8 2:02:081.2.840.907039.1.72.3.15|1.2 .840.195867.1.13.104.2.7.2.727879_2 [id number] [facility] 2024-02-28 19:00:00 9156-70-53I21:00:00 Pt resting, NAD. Pending results. 86450-0Krbdvgiwm department XynnQG8230-70-03B59:29:07[facility] department NoteTXT1.2.840.626036.1.13.104.2.7. 2.755391|[id number] for patient rfti28099-3JoosOPRWFICQNXBNrpppvxrk C-CDA narrative text[id number] 7IOMOIQVOQPORROEBCMBOKC8863-34-69T3 9:29:071.2.840.048898.1.72.3.15|1.2 .840.349140.1.13.104.2.7.2.727879_2 [id number] [facility] 2024-02-28 16:37:17 1955-06-09S16:37:17 Pt brought in by Daughter and .Pt states "They old me I need to come get my arm checked because it swollen." 91808-5Ullhqdkuo department Triage yuvyYZ7242-17-28Q28:38:17[facility] department Triage noteTXT1.2.840.360729.1.13.104.2.7. 2.780226|[id number] for patient oysk65362-7Skmrshfsp department NoteLNNARRATIVEFormatted C-CDA narrative [id number] Jain RNUT[id number] 8GZBRISOHAZIUFYWQXHAZGP2391-32-23C5 6:38:171.2.840.387731.1.72.3.15|1.2 .840.076102.1.13.104.2.7.2.727879_2 [id number] Dorota Jain RN [facility] 2024-02-27 08:54:49 2720-23-74Z43:54:49 Images from the original note were not included.Appt 02/27Notes:Name from pharmacy: NovoLIN 70/30 ReliOn (70-30) 100 UNIT/ML Subcutaneous SuspensionWill file in chart as: NOVOLIN 70/30 U-100 INSULIN 100 unit/mL (70-30) suspensionSig: INJECT 22 UNITS SUBCUTANEOUSLY TWICE DAILY BEFORE BREAKFAST AND BEFORE SUPPERDisp: 20 mL Refills: 0Start: 4Class: eRXFor: Type 2 diabetes mellitus with other specified complication, with long-term current use of insulin; Stage 3b chronic kidney diseaseLast ordered: 1 year ago (01/22/2023) by Edmar Mendes refill: 4Rx #: [id number]: Diabetes - Insulins Znkfkv4702/26/2024 06:14 PMProtocol Details Manual review: Staff refilling for [facility], Cr lab not required to refillCr in normal range and within 360 daysValid encounter within last 12 snbflxWBS7E within 180 daysTo be filled at: [facility] [address] [place], [place] [address]Lasmarilynn Refilled: 01/04/24Recent VisitsDate Type Provider Dept01/17/24 Office Visit [place] Grande NP [facility] Utxkpgqf46/12/24 Office Visit [place] NP [facility] Rnmyjqup37/08/23 Office Visit Aydin Mclean MD [facility] Feorlccf09/03/23 Office Visit [place] NP [facility] Gxqxbdxo70/22/23 Office Visit [place] NP [facility] Ypcuwfny93/25/23 Office Visit [place] NP [facility] Mxiijfvm95/17/23 Office Visit [place] NP [facility] Fzvfshno94/13/23 Office Visit [place] Grande NP [facility] Cmzhneby94/17/23 Office Visit [place] NP [facility] Family MedicineShowing recent visits within past 540 days with a meds authorizing provider and meeting all other requirementsFuture AppointmentsDate Type Provider Dept02/28/24 Appointment [place] [facility] NP [facility] Family MedicineShowing future appointments within next 150 days with a meds authorizing provider and meeting all other requirements 05318-3Bmfbrnssv encounter MrheZX7725-54-68A98:56:01Telephone encounter NoteTXT1.2.840.699905.1.13.104.2.7. 2.867362|[id number] for patient fgbf22683-1UnweNSCRFGUHELECiltteycx C-CDA narrative textUT[address] BvimRiwzpqkgwEnlpvgheoOJVG079471839 8MSFMKGADCZCIYCVNOXUSFA6703-15-24T4 8:56:011.2.840.622977.1.72.3.15|1.2 .840.326150.1.13.104.2.7.2.727879_2 [id number] [facility] 2024-02-25 16:08:31 7216-86-12A12:08:31 Patient's spouse notified of Dr. Moreland's recommendations. She verbalized understanding. He already scheduled to see PCP on Saturday. She will see if patient's daughter can take patient to urgent care today for further eval. 88055-8Umcfzxjmc encounter EzeiPT8763-63-88Z22:10:01Telephone encounter NoteTXT1.2.840.585448.1.13.104.2.7. 2.618571|9692268449DQSgedsaxgs for patient fqii47313-3XwhaTTXFNUTTAAKPxvtyauzo C-CDA narrative flov724595471Ufhl Sheavly RNSURINDER[id number] 0AMXFMOPCQMXLDXNKUQBWJQ7842-78-83L1 6:10:011.2.840.203529.1.72.3.15|1.2 .840.509064.1.13.104.2.7.2.727879_2 [id number] Bere Hamilton RN [facility] 2024-02-25 15:50:26 1135-08-75C73:50:26 Needs PCP or urgent care or ER to have a diagnosis 55293-1Kllaknuts encounter UpeuFR6125-82-92X29:50:44Telephone encounter NoteTXT1.2.840.043365.1.13.104.2.7. 2.221752|[id number] for patient ebio79297-1WcmmJMTORFUTQJPAiympgfwr C-CDA narrative text[id number] 3FXAEJUYNAUKTBLYCWSRBTK2653-65-71F6 5:50:441.2.840.625216.1.72.3.15|1.2 .840.004144.1.13.104.2.7.2.727879_2 [id number] [facility] 2024-02-25 15:43:56 9650-10-37B63:43:56 Spoke with patient's spouse. She states that today she noted David is making a "wheezy" sound and has a productive cough. She states that the last time he had similar sounding cough he was fluid overloaded. The do not check daily weights, but she states patient denies any other symptoms, no shortness of breath, no signs of weight gain or swelling.She states last time he had his blood work done (10/25/23) they had decreased the bumex to 1 mg daily. Previously he was on 1 mg twice daily. She is wondering if he needs to increase the dose of the fluid pill?She states BP has been fluctuating. He was started on amlodipine and carvedilol LIVE 01/31/2024. BP has been mostly elevated but range between 136-186/60s-80s.NOV 03/13/24 20471-3Tfdpihmgj encounter RnzvEZ1680-69-65L14:48:50Telephone encounter NoteTXT1.2.840.503059.1.13.104.2.7. 2.294901|[id number] for patient sftg71744-6HoaqDYPATWZUNZGPcwzcaxdz C-CDA narrative textUT[address] JpfwPrkppfbtkJihpdrbkpIBUM688555636 4PVIZDQAOAONOPXIFFDGMAB2863-19-87T7 5:48:501.2.840.127697.1.72.3.15|1.2 .840.521007.1.13.104.2.7.2.727879_2 [id number] [facility] 2024-02-25 14:32:42 0178-01-82Y65:32:42 David Felton is a 64 year old malePt calling in stating he is wheezing and wants to know if he should still take his med.Please return pt's call.[phone] (work) 44328-1Xiuqsqzxf encounter UxweNG4751-89-67R97:35:14Telephone encounter NoteTXT1.2.840.797856.1.13.104.2.7. 2.810999|0653283144HLDiwszlpuh for patient ztbt46236-6DolhKXRPUVMJFCJCesdbsloi C-CDA narrative avah161400410Qqgvve N [address]TX[address] 8TQQUGDVOXRRLJVLWQGIQVG5809-87-85M4 4:35:141.2.840.118107.1.72.3.15|1.2 .840.390849.1.13.104.2.7.2.727879_2 [id number] Irasema Mendiola [facility] 2024-01-30 08:30:09 5603-73-24Y00:30:09 Referral has been made. 32356-3Fhruqaurm encounter DcceDT0388-50-98T58:30:24Telephone encounter NoteTXT1.2.840.761626.1.13.104.2.7. 2.007519|4951121547VFOjtuaxgvm for patient vazs02891-1BhsiKTWIJYATJWZGjheeznyn C-CDA narrative [id number] 2EWKWCJPJNDPYKNASUYMCVR8094-92-26P6 8:30:241.2.840.999311.1.72.3.15|1.2 .840.426549.1.13.104.2.7.2.727879_2 [id number] [facility] 2024-01-30 08:15:11 2810-92-30W86:15:11 Patient is scheduled to see Dr. Moreland the Supervisor [employer] Conditioning Installer tomorrow. Due to patients insurance a referral is required. Please advise. 88231-1Ioihviwcj encounter LtpuRU3024-21-69D12:16:24Telephone encounter NoteTXT1.2.840.625707.1.13.104.2.7. 2.027223|[id number] for patient zurm86652-3AwzbWQRDPROMCCTCnvtzejho C-CDA narrative fbqv614753080Noolz [address]vestonTXTX[address] 5IYDCOBJMMKHHHFNUAOFKZE7154-82-71E6 8:16:241.2.840.201495.1.72.3.15|1.2 .840.352674.1.13.104.2.7.2.727879_2 [id number] Mara Stollmez [facility] 2024-01-29 15:00:14 1006-16-45U80:00:14 Medical record received from [employer] scanned in folder and placed in provider basket for review. 27125-4Eqzrbzzvl encounter QryvXE3937-26-67C31:00:55Telephone encounter NoteTXT1.2.840.738337.1.13.104.2.7. 2.287304|[id number] for patient afaj03861-2XxnkSYBKTPJEMHFWqybvhddh C-CDA narrative mips480033885Qxppiuw D [address] 7NJVVKJYLLIWPDPYTCGUVEN9589-02-88J2 5:00:551.2.840.749503.1.72.3.15|1.2 .840.743492.1.13.104.2.7.2.727879_2 [id number] Alida [facility]esmem[facility] hospitalrodrigue [facility] 2024-01-22 08:51:00 4683-99-20T06:51:00 Regarding: high BP----- Message from Cecilia Perdomo sent at 01/22/2024 8:50 AM CDT -----David Felton is a 64 year old male having high BP 217/68 95703-1Eamarbcjq encounter HsaxPI4491-08-53F53:51:12Telephone encounter NoteTXT1.2.840.086890.1.13.104.2.7. 2.160893|6098910419PHZxgozmrpb for patient loqp28035-7KiswZTBQIXXNPEVDgqcqszri C-CDA narrative vdea839850892Ehigxdei Soto RNUT[address] BiysRookuxawzNbzujoiinFIUE851269593 7UOOCFHKTTVNTEXWCOYDDPY4332-77-30Y1 8:51:121.2.840.436482.1.72.3.15|1.2 .840.174131.1.13.104.2.7.2.727879_2 [id number] Jenny Mejia RN [facility] 2024-01-22 08:51:00 1683-16-95N50:51:00 Adult Triage AssessmentLast Clinic Visit: 01/17/2024 Family Medicine in office visit. Dx: Essential HTN, financial insecurity due to medical expensesPrimary Symptom: spoke with patient stated " we see Dr. Stone on Saturday and his blood pressure was up. She told me to keep a close eye on it. He had heart surgery last january. Saturday was 199/72, Saturday 205/79, 212/129, 117/68 taken again currently."Onset / Duration: SaturdayLocation / Description: deniesPain / Severity: deniesAssociated Symptoms: deniesFever / Method: deniesHydration: bottles of water drinks 3-4, denies any problems with urine or bowels.Treatment so far: deniesEffect on ADL's: noneLMP: n/a malePre-existing condition / Immunocompromised: Essential Hypertension, CHF, Pulmonary hypertension, Left heart failure, S/P CABGWife of patient wanted to notify provider of blood pressure readings. Current one was 117/68. Strong ER precautions informed if worsening of symptoms occur of patient verbalized understanding and agreed with recommendations.Reason for DispositionSystolic BP < 120 with Diastolic < 80Protocols used: High Blood Nuebrdxv-OAPNM-ZRGdeuhkjujqmnkk signed by Jenny Mejia RN at 01/22/2024 9:11 AM FPL16325-0Jlqqnmknv encounter EewpXC3995-57-34F07:11:09Telephone encounter NoteTXT1.2.840.721379.1.13.104.2.7. 2.661102|2261040891FZDkvzhmlud for patient dztr42682-4OzmlMZIBTGVEMCDChnvhrekk C-CDA narrative textUT[address] VhgfVuxjcvxddPtrmumeaaVWFY610564701 7OIYNWZMPXWPBMXBPIHDLOP5521-66-11M9 9:11:091.2.840.451497.1.72.3.15|1.2 .840.842898.1.13.104.2.7.2.727879_2 [id number] [facility] 2023-11-28 15:55:41 4215-79-18E99:55:41 SW attempted to contact Patients (Kaylynn Felton (p: [phone]); left message.SW note in chart.Thank you,Ami Duarte LCSW, ASW-G, CCMSocial Worker- Residential Recycle Driver ManagementMESILLA VAL[facility]- [facility], [place], [place] and HenryPh: [phone]: [phone] ---[place] CBCFax: [phone]---[place] CBCFax: [phone]--[place] CBCFax: [phone]---[place] CBCPager: [phone]: [email or web address] 61227-5Hbwxpjfah encounter NzxoDH9843-80-18F88:56:22Telephone encounter NoteTXT1.2.840.347032.1.13.104.2.7. 2.786108|[id number] for patient pfkq27158-9RpzdFNZAYTGAPHRDkwodclbr C-CDA narrative vtjd861490726Cwstt Cynthia Gerald [id number] 6KABTHAHHSVRVWVEZEPLHUK5074-45-12X7 5:56:221.2.840.190392.1.72.3.15|1.2 .840.089283.1.13.104.2.7.2.727879_2 [id number] Caridad Marie Gerald [facility] 2023-11-26 08:41:19 6315-48-82S64:41:19 David Felton is a 63 year old malePt's returning call to the Caridad Duarte 95442-6Nmuajrsab encounter VyvnWG7302-63-33O15:41:54Telephone encounter NoteTXT1.2.840.865993.1.13.104.2.7. 2.633289|[id number] for patient ocpe32167-2TpnxITLMDUBGBDANchhhifqh C-CDA narrative [id number] [id number] 8MSRFALTMJKPTWAWRXSXNDZ7041-85-59Q1 8:41:541.2.840.150381.1.72.3.15|1.2 .840.314764.1.13.104.2.7.2.727879_2 [id number] Karen Purcell [facility] 2023-11-01 08:24:45 0238-63-03T37:24:45 Spoke with patient daughter and informed per Noreen message. "Bumetanide is for fluid retention.If creative guru recommends reducing it, follow instructions as recommended by specialist". 48626-4Ikyofwpzy encounter BzxrFV1210-42-64S55:25:23Telephone encounter NoteTXT1.2.840.228205.1.13.104.2.7. 2.586420|[id number] for patient cxzv99893-6FbhjTZQBCDOCHUNHfilqaxut C-CDA narrative [id number] M Serrano MA[id number] 1YMTSNGAIQUNCMOSATLMGVF6831-25-23S9 8:25:231.2.840.545116.1.72.3.15|1.2 .840.734852.1.13.104.2.7.2.727879_2 [id number] Maddi Torres MA [facility] 2023-11-01 08:16:39 8558-07-68O60:16:39 Bumetanide is for fluid retention.If creative guru recommends reducing it, follow instructions as recommended by specialist. 15847-2Fgohraeqo encounter YosqND9446-50-98R44:17:37Telephone encounter NoteTXT1.2.840.998654.1.13.104.2.7. 2.047767|[id number] for patient qmvo66145-4GswhYLUZUIBKXIPWvbiwvsct C-CDA narrative text[id number] 1FETZHXVEAVJUGQMTASKSZV3605-92-36Q1 8:17:371.2.840.560967.1.72.3.15|1.2 .840.659160.1.13.104.2.7.2.727879_2 [id number] [facility] 2023-10-30 13:41:15 4484-53-36R83:41:15 Routing to provider. 64796-8Rfvorfknx encounter NlvbNU8685-33-49O41:41:30Telephone encounter NoteTXT1.2.840.523402.1.13.104.2.7. 2.648433|[id number] for patient dhlc98880-7OvngFGACJXJXSUWPnifsitea C-CDA narrative text[address] VxtjWnzftqyfsRftdvpslhOYXN325602423 3CIDDVXJDMDEZTSYPMLKNVW4398-57-95M8 3:41:301.2.840.555262.1.72.3.15|1.2 .840.800664.1.13.104.2.7.2.727879_2 [id number] [facility] 2023-10-30 12:52:49 7683-22-14B64:52:49 David Felton is a 63 year old male and spouse Kaylynn is calling requesting a call back to discuss the medication directions for bumetanide 1 mg tablet.States the creative guru is trying to reduce the medication usage and would like a second opinion please from the nurses or provider since she originally prescribed him the medication. 34992-8Dfhftbkuo encounter JbhvHZ2183-77-11S40:56:26Telephone encounter NoteTXT1.2.840.904031.1.13.104.2.7. 2.387006|4855710708QKKdwupaozn for patient sbut97873-7EivdXZAQZVNHFFPQzinzzuts C-CDA narrative wjmw43518503Npcamqt S [id number] 3HKDYIMRMEBBGIWPDHDKDRT6140-14-34L6 2:56:261.2.840.574651.1.72.3.15|1.2 .840.403174.1.13.104.2.7.2.727879_2 [id number] [facility] 15:20:35 6340-41-42W55:20:35 See myChart message 88619-6Aboxiloap encounter GgomJE5855-36-72D62:20:47Telephone encounter NoteTXT1.2.840.723061.1.13.104.2.7. 2.330073|[id number] for patient djbe74618-6SyeqGLYVDJBJRSWLtfyidaib C-CDA narrative vgcq814051101Vgacpg D Jackson RN[address] StreetGwnmFyezsichjSilsfgnizJLTD838365778 8SQPQAHQBEKILLHWBILNRWA6172-97-08J1 5:20:471.2.840.416986.1.72.3.15|1.2 .840.109313.1.13.104.2.7.2.727879_2 [id number] Liya Delvalle RN [facility] 2023-10-28 13:15:53 7143-19-17Y27:15:53 aDvid Felton is a 63 year old malePt's spouse is calling wanting to speak w a nurse in regards of getting advise that pt is only needing to take (bumetanide 1 mg tablet ) once a day. Pt' spouse having questionPlease advise 44229-1Csfdbapoe encounter VkvvJH8225-68-07B34:19:17Telephone encounter NoteTXT1.2.840.376572.1.13.104.2.7. 2.579804|2124159583WHAjbduuqrj for patient hixp22558-6HgvuQLYVDTWSSCZKilydshvp C-CDA narrative vjzg574608499Scnli [address] KlciGqtfrprenWjnffdpigFZPX810562450 4DRWYCLWUNTQXJGJBNPTRFX1284-74-15U4 3:19:171.2.840.655407.1.72.3.15|1.2 .840.735750.1.13.104.2.7.2.727879_2 [id number] Lisa [facility] 2023-10-28 10:21:18 5330-41-82R29:21:18 Images from the original note were not included.Per Dr. Johns to patient's daughter and she verbalized understanding of results and recommendations.Message sent through [employer] as well per daughters request 74964-5Tuqcgsxyb encounter TmekMD9518-33-58F43:25:40Telephone encounter NoteTXT1.2.840.672630.1.13.104.2.7. 2.264604|1898920561VVYpgymrvpd for patient ytgr54211-9IhojUANYDBBOWLLFiubhrsrl C-CDA narrative baef201898286Fdvmn Vr[address] LbgiGjhvtizhpJnremmmtaMJWI137640676 7MYLIBNRPUETXGIBFZZLIZB4206-43-00Q1 0:25:401.2.840.025000.1.72.3.15|1.2 .840.339080.1.13.104.2.7.2.727879_2 [id number] Ana Padilla [facility] 2023-10-25 10:15:00 2526-65-63J36:15:00 Images from the original note were not included.Venipuncture collection performed by clean technique on the right anticubitus. Total of 1 attempts were made. Slight pressure and a bandage/dressing were applied to the site(s). The patient experienced no complications. The following specimens were processed according to instructions and sent to [facility] laboratories per lab order on 10/25/2023:LT BLUESST 1REDLAV 2PPTDK GREEN (LiHep)DK GREEN (SodH)GRAYDK BLUE (K2)DK BLUE (S)ACDBlood CultureNIPT/NTDPatient stated he was not fasting for the LIPID panel but wanted to continue with blood work.Brandy Barajas 10/25/2023 10:40 AM 80825-8Uxakh BwbrSF2839-35-43D76:40:33Nurse NoteTXT1.2.840.542595.1.13.104.2.7. 2.464725|[id number] for patient wnfm98733-6Ukhei NoteLNNARRATIVEFormatted C-CDA narrative text[address] UyuvLljyneicsUdkjxppscCFYN079013015 6LPAMQVZYYURIQEAKYMXAWB0282-73-38C9 0:40:331.2.840.937904.1.72.3.15|1.2 .840.935509.1.13.104.2.7.2.727879_2 [id number] [facility] 2023-10-22 11:11:29 2103-44-17J52:11:29 Spoke with Kaylynn patient (spouse) and wanted to know if patient needs to be fasting for upcoming labs. Per Dr. Cameron patient is able to eat due to patient getting sick if not eating. 60263-8Uucywhqzh encounter KslvWC3434-75-52D31:12:38Telephone encounter NoteTXT1.2.840.193577.1.13.104.2.7. 2.297836|3190850611WSYozpbdnam for patient dnlr82976-0BzzuSUVJXGKQSCEBlbdxjhiu C-CDA narrative ignu398254198Kykmdt M Serrano [address]TXTX[address] 8ULCGCQRGFBZBISQTAXZZVM1448-12-67V1 1:12:381.2.840.333349.1.72.3.15|1.2 .840.932261.1.13.104.2.7.2.727879_2 [id number] Maddi Torres [facility] 2023-10-22 10:53:34 8796-03-11T26:53:34 Spouse of pt is calling for lab order clarification since pt is diabetic and orders are fasting.Please advise. 93412-4Mrxiidjis encounter FlosBK0057-47-56W76:54:33Telephone encounter NoteTXT1.2.840.058476.1.13.104.2.7. 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 Patient states he was not able to follow up after discharge. nurse was requesting order to remove, but patient has appt to f/u in clinic 05/[address] Collado. Patient denies any signs of infection, pain and states his surgical sites have been healing well and has no concerns other than suture removal. Discussed with Vascular SAP BOBJ DEVELOPER Saul, she called and spoke with the patient daughter and they will be able to make appt. All questions were answered and daughter confirmed 05/23 appt 00005-4Gubacjisc encounter PabfVH8064-75-87B38:14:49Telephone encounter NoteTXT1.2.840.126237.1.13.104.2.7. 2.841765|5049735907CDJokrwbptf for patient vfrc61885-8MqerPW847318295Axmbs A Chonoski RN[address] ZyiwWkqlrpmcgYnrxjxxhoQFSM495235076 7ZWHNRYNYZVXCPFMUVOVZML5121-80-72X3 7:14:491.2.840.793367.1.72.3.15|1.2 .840.516450.1.13.104.2.7.2.727879_1 [id number] Grisel Mayberry RN [facility] 2023-05-20 13:16:28 4411-08-48G64:16:28 David Felton is a 63 year old malePt's spouse is calling to request orders to allow David's home healthcare nurse remove the pt's staple and suture. Please f/uHome Work Phone Not on file. 55168-8Azdjdcdet encounter PfvhHT5112-24-63M02:19:35Telephone encounter NoteTXT1.2.840.247359.1.13.104.2.7. 2.463742|2276220333WFCmtnwupgc for patient vkeu67638-8GwvuDC273091711Dmsus[address]TXTX[address] 4ADYKNMIODQVDMTGIIGDDFW1836-93-86V6 3:19:351.2.840.368328.1.72.3.15|1.2 .840.138012.1.13.104.2.7.2.727879_1 [id number] [facility] 2023-05-14 15:50:42 4957-81-86G54:50:42 Forms signed, faxed and confirmation received. 27804-2Ursixrqpk encounter DysmSQ9870-65-17S40:51:16Telephone encounter NoteTXT1.2.840.335599.1.13.104.2.7. 2.042427|2507847806APAaqiglamt for patient rbjh41074-2HzrtPL669001135Qqcrxf M Serrano [address] 5FZVOSGBZTQEUDHRYBBBMLX8516-19-06Z6 5:51:161.2.840.684024.1.72.3.15|1.2 .840.667236.1.13.104.2.7.2.727879_1 [id number] Maddi Torres MA [facility] 2023-05-14 15:50:17 5703-05-00D94:50:17 Faxed, confirmation received. 67963-5Pqavvadlz encounter DpuiRG8705-09-92C16:50:33Telephone encounter NoteTXT1.2.840.759620.1.13.104.2.7. 2.983012|5609151668REKsywvyefr for patient hkpj49594-5LuptZP570862073Tlmhwo Lyudmila Brian [address]TX[address] 9ZXODQXJRVWKDWDRGMLCAMD5434-26-07G6 5:50:331.2.840.542123.1.72.3.15|1.2 .840.478585.1.13.104.2.7.2.727879_1 [id number] Maddi Torres [facility] 2023-05-14 15:26:05 9867-18-57Y87:26:05 Notes addendFax order and notes to appropriate personell 44911-0Mlfibersc encounter GixkWK7706-40-64O61:35:47Telephone encounter NoteTXT1.2.840.364198.1.13.104.2.7. 2.640836|9569412743ASVnwifeesw for patient gwnu64764-7CumbZGUNSEPNVD[address]vdGalvestonGalvestonTXTX[address] 0BLTMUXHHVVGPEQIJNCIVKH2831-61-30O0 5:35:471.2.840.249502.1.72.3.15|1.2 .840.055552.1.13.104.2.7.2.727879_1 [id number] [facility] 2023-05-14 14:28:41 6724-29-27Q41:28:41 Forms received, placed in provider folder to be view/sign. 31140-5Codimgvjf encounter UkddAN9848-56-40K71:29:09Telephone encounter NoteTXT1.2.840.069933.1.13.104.2.7. 2.633222|2448427926MKSdymxkjoc for patient dkhs39387-0HwgqSOKNBMCIBJ[address]TXTX[address] 7FCGAJPTWOEORGMBWMPJDYZ6375-27-84Y7 4:29:091.2.840.105359.1.72.3.15|1.2 .840.755330.1.13.104.2.7.2.727879_1 [id number] [facility] 2023-05-14 14:26:12 3665-34-72T87:26:12 Received form from [facility], placed in provider folder to be view/signed. 35014-6Txdkxfecu encounter CixaJR3806-77-06L90:27:30Telephone encounter NoteTXT1.2.840.356005.1.13.104.2.7. 2.828833|3686021784TEWopkqiufl for patient afcy45081-4BozaRCANMNFBNX[address]TXTX[address] 3LVHYNCZHNNSDOEUIPABTBB7474-86-78T7 4:27:301.2.840.325099.1.72.3.15|1.2 .840.077237.1.13.104.2.7.2.727879_1 [id number] [facility] 2023-05-14 09:03:28 2520-37-97A08:03:28 Orders/ last encounter from 04-26-2023 were faxed over and received confirmation. No further action needed. 71246-4Kwihvblds encounter TsefWF8425-05-07F08:04:37Telephone encounter NoteTXT1.2.840.036774.1.13.104.2.7. 2.995286|8068881831TCEpbhykkns for patient pygt86435-2ZhkrPV009407358Oxkori M Serrano [address] 7WKCXTEFTBOVZCYIJGXITWI0406-51-19E1 9:04:371.2.840.164905.1.72.3.15|1.2 .840.093236.1.13.104.2.7.2.727879_1 [id number] Maddi Torres [facility] 2023-05-14 08:50:39 7692-28-00C89:50:39 Spoke with [facility], informed them we never received a form from them. They are going to refax form to [phone]. 91309-3Iriniquoc encounter BbuqNB3563-11-96B14:51:59Telephone encounter NoteTXT1.2.840.242727.1.13.104.2.7. 2.307228|9709869226NSXnlbypvpr for patient xiun54995-1VpowDZPXLFNBSC[address]TXTX[address] 9BLPXGBCSTLBSKBQONCIBND2769-03-57A7 8:51:591.2.840.711012.1.72.3.15|1.2 .840.174982.1.13.104.2.7.2.727879_1 [id number] [facility] 2023-05-13 15:52:06 4735-80-16E37:52:06 Called and spoke with Ms Felton. Home health is no longer in the home. Order is needed to remove stitches. His stitches have been in place since 03/29 when BKA was performed. 11089-2Fmbxvemmn encounter OyehEW2018-45-49M32:14:00Telephone encounter NoteTXT1.2.840.656861.1.13.104.2.7. 2.663839|4833869690ETLjxcnbixi for patient lprt63407-4QsfmDJ117442521Sfwan A Case NICK[address]TXTX[address] 2FWZFJMQGAMOPXJGQLVLDHC1752-36-34S5 6:14:001.2.840.201199.1.72.3.15|1.2 .840.186164.1.13.104.2.7.2.727879_1 [id number] Caridad Houston Case RN [facility] 2023-05-13 14:46:18 7880-79-66F98:46:18Summary: Patient's spouse requesting call Patient's spouse is calling regarding home health request for stitches to be removed. Home health nurse is at his home now. Spouse states stitches have been in since March. Ms. Felton is asking for a stat call regarding this. 30354-9Uusdrdyvc encounter RgegZG0757-84-77X29:51:25Telephone encounter NoteTXT1.2.840.762646.1.13.104.2.7. 2.999381|9852560608JEPlbhxelmp for patient xzcm46095-4EwscXQ869827784Etnyr S Berry[address]TXTX[address] 6CUKXALIHJXYRCPMOHVBYFT6942-47-97R4 4:51:251.2.840.112825.1.72.3.15|1.2 .840.698151.1.13.104.2.7.2.727879_1 [id number] Monik Solomon Humphreys [facility] 2023-05-10 14:07:38 0226-90-66F11:07:[address] [facility] is sending over a fax for pt to complete order by HAMZAH Grande [phone] signed by Urvashi Cristina at 05/10/2023 2:09 PM BRV75229-7Plyapdoyj encounter QfljUE6856-46-26F02:09:21Telephone encounter NoteTXT1.2.840.221571.1.13.104.2.7. 2.959593|7514089048KNTwjyftlhh for patient vqzj97980-9JpixIK33009942Ikhxw J Barnshaw[address]TXTX[address] 4SZDYCWAWWVGZERGXMBIZRJ2880-11-18G5 4:09:211.2.840.447428.1.72.3.15|1.2 .840.367166.1.13.104.2.7.2.727879_1 [id number] Urvashi Cristina [facility] 2023-05-10 08:56:39 1737-61-59B75:56:39 [facility] home health calling to see if the dr can send the encounter from 04/26 appointment. They wanting to back sure dr is going to follow the pt for home health. Ejhywukynrmapo signed by Cecilia Perdomo at 05/10/2023 9:02 AM YPY98390-5Biuzzjumk encounter MeavHV1538-05-51H73:02:14Telephone encounter NoteTXT1.2.840.140876.1.13.104.2.7. 2.710013|4594314344SXMvlladfbu for patient jdeq20364-7HtoqWF967195580Dqnwx Dirk [address] 8XTXLMHXUEXWMHTVDBVPMCM6489-97-96X9 9:02:141.2.840.938746.1.72.3.15|1.2 .840.490260.1.13.104.2.7.2.727879_1 [id number] Cecilia Perdomo [facility] 2023-05-02 07:17:50 3649-42-93N44:17:50 Noted 44259-4Glvthqfox encounter ChcfYQ8146-76-86V89:18:05Telephone encounter NoteTXT1.2.840.421134.1.13.104.2.7. 2.631351|8052647141IPQrawilwad for patient lmng61595-3BogbCOIKLVRDDV[address]TXTX[address] 3YKIFOHMIMNZPWOGMTWCTST0950-62-01L4 7:18:051.2.840.346076.1.72.3.15|1.2 .840.019164.1.13.104.2.7.2.727879_1 [id number] [facility] 2023-05-01 10:14:33 5005-93-04R12:14:33 Pt calling on behave of to see if the dr was still going to prescribe this pt something for his pain. She said the discussed it at his last appointment . 62520-5Eorhivktn encounter BlhfSM5294-15-58Z00:17:43Telephone encounter NoteTXT1.2.840.794623.1.13.104.2.7. 2.041918|8877726817YPRlymzeqqt for patient lxky54631-6UnotCT769961652Ibejd C [address] 0GYEFGLYWAQASMQEVSBYOER5428-96-58M7 0:17:431.2.840.423159.1.72.3.15|1.2 .840.501884.1.13.104.2.7.2.727879_1 [id number] Cecilia Cavazos [facility] 2023-04-26 16:00:00 3702-59-68L46:00:00 Addended by: SAVANNAH GRANDE NP on: 04/30/2023 12:22 PM Modules accepted: Orders 60471-7Dylcnkln KpiupfpfKE4905-09-09Z36:22:19Addend DocumentTXT1.2.840.550038.1.13.104. 2.7.2.445092|[id number] for patient femj58118-3QabfVWXCWCZDMY[address]vestonTXTX[address] 2IXLCCRXAOMTKSCDZGYTNEW3707-78-43L3 2:22:191.2.840.633161.1.72.3.15|1.2 .840.591521.1.13.104.2.7.2.727879_1 [id number] [facility] 2023-04-26 16:00:00 2684-24-57V93:00:00 Addended by: SAVANNAH GRANDE NP on: 05/02/2023 07:17 AM Modules accepted: Orders 48425-0Rangkbop IehgsaosSB3175-21-90Y33:17:09Addend DocumentTXT1.2.840.582618.1.13.104. 2.7.2.133910|4903339803JQJlagizqrz for patient rpuu37763-7DuxbRDHNYCUBTX[address]TXTX[address] 7JIRREPGMELCKUTKWWDEGBG8827-66-57C4 7:17:091.2.840.363190.1.72.3.15|1.2 .840.365366.1.13.104.2.7.2.727879_1 [id number] [facility] 2023-04-26 16:00:00 8096-72-43U28:00:00 Addended by: SAVANNAH GRANDE NP on: 05/14/2023 03:24 PM Modules accepted: Orders 24190-2Vhqfxrgx AjkvyaijQV5881-20-20L60:24:47Addend DocumentTXT1.2.840.238392.1.13.104. 2.7.2.080802|1815745133YIKmynslgos for patient somj78943-9LqarQMQUVADYSX[address]vd[address]on[place]on[place]TX[address] 9AQKFBQFWOCBDUXCVEEBCLK2384-76-74E6 5:24:471.2.840.068493.1.72.3.15|1.2 .840.511705.1.13.104.2.7.2.727879_1 [id number] [facility] 2023-04-25 15:37:46 4437-23-68O72:37:46 Spoke with of pt, Kaylynn. She has some confusion and concerns about medication prescribed in the hospital. Pt has an appt in office tomorrow for a hospital follow up. She is concerned about the medications for diabetes he was prescribed. Per her report, his glucose levels have been normal. Advised to keep appt tomorrow to discuss with provider. She states that it may be challenging to keep appt, but they were going to try. Advised to reach out to the office if they are unable to keep appt. Understanding verbalized. 05286-2Mjaatsnit encounter XlmdSY9630-81-10R22:54:48Telephone encounter NoteTXT1.2.840.143988.1.13.104.2.7. 2.957274|5146700491VSUqqbqrhct for patient zlcm66658-5RqtxNE691596351Qmwkn A Case NICK[address] 8HMAKUGBBASDIHOXKWLQQGL3360-10-30P7 5:54:481.2.840.776226.1.72.3.15|1.2 .840.030601.1.13.104.2.7.2.727879_1 [id number] Caridad Houston Case RN [facility] 2023-04-25 15:15:13 3010-22-52G72:15:13 Pts returning clinic call. Please advise. Call back number: [phone] signed by Jessica Greenwood at 04/25/2023 3:15 PM YDA84993-9Ctlcjwkfj encounter KwcyNI9682-39-06I65:15:58Telephone encounter NoteTXT1.2.840.951302.1.13.104.2.7. 2.996239|1105066396JDDvlxuzsto for patient snuw64720-5TpykSA05072167Nrrfrln R [address]TXTX[address] 8QDRFVUAHNIRGUALZRGFMUY2660-13-14Z3 5:15:581.2.840.501412.1.72.3.15|1.2 .840.903214.1.13.104.2.7.2.727879_1 [id number] Jessica Greenwood [facility] 2023-04-25 15:05:45 0333-62-18Z50:05:45 Attempted to reach of pt by phone, no answer, message left for call to be returned to the office. 43998-6Ktajbesrz encounter BxmlWK4138-31-01W52:06:17Telephone encounter NoteTXT1.2.840.931807.1.13.104.2.7. 2.466608|3077846568QPJtpqmigfu for patient gduc53600-0AzpiJBRVYJZUOZ[address]TXTX[address] 7WUUNODERGCIRURWTURUNXD2992-35-69O8 5:06:171.2.840.874291.1.72.3.15|1.2 .840.648942.1.13.104.2.7.2.727879_1 [id number] [facility] 2023-04-22 14:20:02 7648-59-35N27:20:02 Attempted to reach pt's , Kaylynn, by phone, no answer, message left for call to be returned to the office. 41233-1Ogeeajzoh encounter ZdidZI4754-43-96I22:20:29Telephone encounter NoteTXT1.2.840.606287.1.13.104.2.7. 2.767051|1738131126ORPautmhups for patient wlth60200-7NijsEVOXSYJOMZ[address]TXTX[address] 5HRLRKFYEGHNXAQAUHHXPLV6442-57-09F5 4:20:291.2.840.871766.1.72.3.15|1.2 .840.139097.1.13.104.2.7.2.727879_1 [id number] [facility] 2023-04-21 20:56:29 7425-66-83P21:56:29 Called by Ms Felton concerning Mr. Felton. He has significant constipation and has not been able to have a bowel movement since discharge on 04/18/23. Recommended Miralax and Dulcolax suppository with options for Fleet enema and Docusate. Informed Ms Felton that she should take him to the ER if he is having severe pain or pain that worsens [place] [address]-7Nvhaxyxxt encounter KhwrIE2825-37-67R21:06:03Telephone encounter NoteTXT1.2.840.203921.1.13.104.2.7. 2.110322|9055786185DDFjfaprjyy for patient vgam40053-1WvilGEWKSACPKW[address]vdGal[address]onGal[place]onTXTX[address] 5KNFVJTBPYVHSBXFGIZFNSU2535-98-35I5 1:06:031.2.840.760804.1.72.3.15|1.2 .840.967139.1.13.104.2.7.2.727879_1 [id number] [facility] 2023-04-21 20:56:14 6347-25-73Z46:56:14 David Felton is a 63 year old male whose called to speak with someone about the pt having constipation since coming home from the hospital on 04/18/23.Connected the pt's with Dr. Munson at 8:57 pm. 06863-6Qgtlivybl encounter OrjlWE2597-63-49B54:57:45Telephone encounter NoteTXT1.2.840.133660.1.13.104.2.7. 2.428158|3266758605ZVCqflakrqc for patient tvkc47814-7CsfpVJ530360788Hvnm [address] 9VESLSBFUABTHVIZBHJPQEJ5726-70-03I3 0:57:451.2.840.895771.1.72.3.15|1.2 .840.460282.1.13.104.2.7.2.727879_1 [id number] Amy [facility] 2023-04-19 16:04:04 6925-65-81X96:04:04 Pt calling wanting to know which medication he should be taking. He was in the hospital and got insulin from the dr while there. But the if wanting to know if he should be taking both medications. 25736-8Npmyqthkk encounter IcqqPW4908-86-46O77:07:27Telephone encounter NoteTXT1.2.840.022608.1.13.104.2.7. 2.955037|[id number] for patient [id number] C [id number] 9OTVTZWYUZNDEUTIFGMMTQW8455-35-77H8 6:07:271.2.840.713151.1.72.3.15|1.2 .840.907323.1.13.104.2.7.2.727879_1 [id number] Cecilia Perdomo [facility] 2023-04-19 14:01:55 4793-09-10O55:01:55 [facility] accepted patient and will contact patient to schedule. Karen Diehl RN, BSNCare Manufacturing Lab Technician-[facility] [phone] signed by Karen Diehl RN at 04/19/2023 2:02 PM MPP62915-6Xbwscnadk encounter IlalAW6030-76-03J19:02:19Telephone encounter NoteTXT1.2.840.646225.1.13.104.2.7. 2.060094|[id number] for patient [id number] M Segura RN[address] Ov[id number] 6XPFCKQKKGLGGCDVTWDEQAF7387-59-17F1 4:02:191.2.840.730128.1.72.3.15|1.2 .840.134639.1.13.104.2.7.2.727879_1 [id number] Karen Diehl RN [facility] 2023-04-19 13:12:05 0821-95-02P64:12:05 TRANSITIONAL CARE MANAGEMENT ASSESSMENT04/19/2023 David FeltonUawlm105101KHsat Green is a 63 year old Black or male was admitted on 02/13/[address] He was discharged on 04/18/23 with discharge disposition of HR- Routine Discharge.Admitting Physician: Miriam Long Diagnosis: 1. Mixed mitral stenosis and regurgitation. 2. Mixed aortic valve stenosis and regurgitation. 3. Coronary artery disease.Linked Episodes Type: Episode: Status: Noted: Resolved: Last update: Updated by: TRANSITION OF CARE TCM Active 04/18/2023 04/19/2023 1:05 PM Karen Diehl RN Comments:04/18/2023 TCM Ehm-lnmu-oc-face outreach documentation:Discharge AssessmentChart Assessed: 04/19/23TCM Outreach Completed: 04/19/23Do you have a few minutes to speak with me about how you are doing at home?: Yes (Patient stated he is doing alright)Discharge InstructionsDo you understand your at-home instructions?: YesMedicationsHave you filled your prescriptions and do you have them in your home? 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 Follow Up AppointmentHas a follow up appointment been scheduled?: YesDo you have any questions about your follow up appointments?: NoAre you able to get to your appointment? Who will be taking you?: [facility] AssistanceHas the home health nurse contacted you since you've been home?: NoHHA Interventions:: Contacted HH agencyIPH is reviewing. Will call CM back. Survey - RecognitionIs there anything you would like to share about your recent hospitalization, or anyone you would like to recognize?: NoDo you have any suggestions for improvement?: NoDo you have any other questions or concerns at this time?: NoFuture Appointments: Future Appointments Provider Department Dept Phone 04/23/2023 1:30 PM Savannah Grande NP [facility] [phone] 05/02/2023 1:15 PM [facility], Cardiovascular [facility] [phone] 07/08/2023 11:00 AM Ilana Lincoln MD [facility] [phone] 19859-5Zztuxqepz encounter OgbgVB6727-63-07U19:46:11Telephone encounter NoteTXT1.2.840.493834.1.13.104.2.7. 2.603858|[id number] for patient [id number] M Segura RNUTCARLSBAD [facility] - [address] Cv[id number] 8JFSDVDSMRNSFLYAQHRQOOO2801-04-29N2 3:46:111.2.840.277646.1.72.3.15|1.2 .840.367363.1.13.104.2.7.2.727879_1 [id number] Karen Diehl RN [facility] 2023-04-01 16:18:25 0291-04-16Z52:18:25 CHP referral [place] Tatiana Cortés [place]. 870[address]-4Wrpqdhcth encounter GmasKI5137-99-05W99:18:56Telephone encounter NoteTXT1.2.840.588197.1.13.104.2.7. 2.052292|[id number] for patient gdru27894-1RusgNK682394247Jqtqklpih e [place] [address] St[id number] 9TLOSBCCFEYBQXBTLCNAUQD2429-66-86E5 6:18:561.2.840.395433.1.72.3.15|1.2 .840.851516.1.13.104.2.7.2.727879_1 [id number] Allyn Smith LVN [facility] [facility]
[2024-03-30 01:42] LABS: Absolute Eosinophils 0.4 K/uL (0-0.5); Absolute Lymphocytes (CBC) 0.8 K/uL (0.7-4.9); Absolute Monocytes 0.6 K/uL (0.1-1.3); Absolute Neutrophil 6.6 K/uL (1.8-8.0); Basophils % 0.3 % (0-1.3); Eosinophils % 4.2 % (0-4.4); Hematocrit 33.6 % (39.6-49.0); Hemoglobin 10.8 g/dL (13.6-17.9); Lymphocytes % 9.8 % (15.3-44.8); MCH 25.8 pg (27.0-35.0); MCHC 32.1 g/dL (32.0-36.0); MCV 80.3 fL (80-100); Monocytes % 7.2 % (3.3-12.3); Neutrophils % 78.5 % (41.7-73.7); Nucleated Red Blood Cells % 0.1 % (0-0); Platelets 174 thou/uL (152-406); RBC Red Blood Cell Count 4.19 M/uL (4.33-5.43); Red Cell Distribution Width 17.7 % (12.1-15.2)
[2024-03-30 01:50] LABS: PT Prothrombin Time 18.8 SECONDS (9.4-12.5); Protime INR 1.7
[2024-03-30 01:54] LABS: Albumin 3.2 g/dL (3.4-5.0); Albumin/Globulin Ratio 0.7 (1.1-1.8); Anion Gap 10.7 mEq/L (5.0-15.0); Bilirubin Direct 0.2 mg/dL (0-0.2); Bilirubin Indirect, Calculated 0.4 mg/dL (0.2-0.8); Bilirubin Total 0.6 mg/dL (0.2-1.0); Globulin 4.5 g/dL (2.3-3.5); Magnesium 2.3 mg/dL (1.6-2.4); Potassium 3.7 mEq/L (3.5-5.1); Protein, Total 7.7 g/dL (6.4-8.2); Troponin High Sensitivity 26.4 pg/mL (<58.9)
[2024-03-30 02:04] LABS: Thyroid Stimulating Hormone 3.75 uIU/mL (0.358-3.740)
[2024-03-30] MEDS ORDERED: FUROSEMIDE 40 MG/4 ML VIAL ONE (02:33)
--- NOTE | 2024-03-30 04:45 | ER ---
Nurse's Notes [facility] Name: David Felton Age: 64 yrs Sex: Male : 1960 Arrival Date: 03/30/2024 Time: 00:28 Bed 19 Private MD: Diagnosis: Acute on chronic diastolic (congestive) heart failure;Acute pulmonary edema Presentation: 03/30 00:58 Chief complaint: EMS states: sudden complain of shortness of breath and wheezing, upon rg5 arrival O2 level \T\ 70% room air. breathing treatment given \T\ solu medrol 125mg IVP. Coronavirus screen: Vaccine status: Patient reports receiving the 1st dose of the Covid vaccine. Client denies travel out of the [place] in the last 14 days. Ebola Screen: Patient negative for fever greater than or equal to 101.5 degrees Fahrenheit, and additional compatible Ebola Virus Disease symptoms. Initial Sepsis Screen: Does the patient meet any 2 criteria? No. Patient's initial sepsis screen is negative. Does the patient have a suspected source of infection? No. Patient's initial sepsis screen is negative. Risk Assessment: Do you want to hurt yourself or someone else? Patient reports no desire to harm self or others. Onset of symptoms was March 30, 2024. Care prior to arrival: Medication(s) given: Albuterol Neb x 1, solumedrol 125 mg IVP IV initiated. 20 GA, in the left forearm. 00:58 Method Of Arrival: EMS: [facility] 00:58 Acuity: JERO 3 rg5 Triage Assessment: 00:58 General: Appears uncomfortable, Behavior is cooperative, restless. Pain: Denies pain. rg5 EENT: No deficits noted. Neuro: Level of Consciousness is awake, alert, obeys commands, Oriented to person, place, time. Cardiovascular: Denies chest pain, Heart tones S1 S2 Patient's skin is warm and dry. Respiratory: Reports shortness of breath at rest Airway is patent Trachea midline Respiratory effort is shallow, Respiratory pattern is tachypnea Breath sounds with wheezes bilaterally. Onset: The symptoms/episode began/occurred just prior to arrival, the patient has moderate shortness of breath. GI: Abdomen is round Abd is soft and non tender. : No signs and/or symptoms were reported regarding the genitourinary system. Derm: Skin is intact, Skin is dry, Skin is normal. Musculoskeletal: Amputation of below the right \T\ left knee. Historical: - Allergies: 00:55 Heparin; rg5 - PMHx: 00:55 Hypertensive disorder; Chronic systolic heart failure; rg5 - PSHx: 00:55 diverticulitis SX; rg5 - Immunization history:: Adult Immunizations up to date. - Infectious Disease History:: Denies. - Social history:: Smoking status: Patient/guardian denies using tobacco, the patient reports quitting approximately 5 years ago. Screenin:45 [facility] ED Fall Risk Assessment (Adult) History of falling in the last 3 months, rg5 including since admission No falls in past 3 months (0 pts) Confusion or Disorientation No (0 pts) Intoxicated or Sedated No (0 pts) Impaired Gait Yes (1 pt) Mobility Assist Device Used Yes (1 pt) Altered Elimination No (0 pt) Score/Fall Risk Level 3 or more points = High Risk Oriented to surroundings, Maintained a safe environment, Educated pt \T\ family on fall prevention, incl call for assistance when getting out of bed, Hourly rounding (assess needs \T\ fall precautionary measures) done. Abuse screen: Denies threats or abuse. Nutritional screening: No deficits noted. Tuberculosis screening: No symptoms or risk factors identified. Assessment: 00:35 Reassessment: see triage assessment. rg5 01:30 Reassessment: Patient and/or family updated on plan of care and expected duration. Pain rg5 level reassessed. 01:30 Respiratory: Airway is patent Respiratory effort is with retractions, Respiratory rg5 pattern is tachypnea. 02:30 Respiratory: Airway is patent Trachea midline Respiratory effort is labored, rg5 Respiratory pattern is regular, tachypnea CALLED RT. DR. LARIOS NOTIFIED Breath sounds with wheezes bilaterally. the patient has moderate shortness of breath. 03:00 Reassessment: Patient and/or family updated on plan of care and expected duration. Pain rg5 level reassessed. Patient states symptoms have improved. 04:15 Reassessment: Patient and/or family updated on plan of care and expected duration. Pain rg5 level reassessed. Vital Signs: 00:45 BP 167 / 78; Pulse 70; Resp 26; Temp 98; Pulse Ox 97% on 8 lpm Simple Mask; Pain 0/10; rg5 00:58 BP 167 / 78; Pulse 70; Resp 22; Temp 98.3; Pulse Ox 97% on 8 lpm Simple Mask; Weight rg5 102.51 kg; Height 4 ft. 11 in. ; Pain 0/10; 01:30 BP 131 / 58; Pulse 56; Resp 25; Pulse Ox 100% on 15 lpm Non-rebreather mask; rg5 02:30 BP 122 / 61; Pulse 56; Resp 21; Pulse Ox 100% on 10 lpm Non-rebreather mask; Pain 0/10; rg5 03:00 BP 152 / 70; Pulse 58; Resp 22 S; Pulse Ox 100% on 40 lpm BiPAP; rg5 04:15 BP 154 / 65; Pulse 58; Resp 20; Pulse Ox 99% on bipap; rg5 05:30 BP 145 / 78; Pulse 58; Resp 19; Pulse Ox 99% ; Pain 0/10; rg5 06:30 BP 128 / 57; Pulse 55; Resp 18; Temp 98; Pulse Ox 99% on bipap; Pain 0/10; rg5 00:58 Body Mass Index 45.65 (102.51 kg, 149.86 cm) rg5 00:45 Pain Scale: Adult rg5 00:58 Pain Scale: Adult rg5 02:30 Pain Scale: Adult rg5 05:30 Pain Scale: Adult rg5 06:30 Pain Scale: Adult rg5 Marj Coma Score: 00:45 Eye Response: spontaneous(4). Motor Response: obeys commands(6). Verbal Response: rg5 oriented(5). Total: 15. ED Course: 00:35 Patient arrived in ED. rg5 00:39 Pankaj Villanueva RN is Primary Nurse. rg5 00:39 Negro Larios MD is Attending Physician. sp4 00:45 Maintain EMS IV. Dressing intact. Good blood return noted. Gauge \T\ site: . Flushed left rg5 forearm saline lock. 00:45 Patient has correct armband on for positive identification. Bed in low position. Call rg5 light in reach. Side rails up X2. Adult w/ patient. 00:54 Basic Metabolic Panel Sent. rg5 00:54 CBC with Diff Sent. rg5 00:54 LFT's Sent. rg5 00:54 Magnesium Sent. rg5 00:54 NT PRO-BNP Sent. rg5 00:54 PT-INR Sent. rg5 00:54 Troponin HS Sent. rg5 00:58 Arm band placed on right wrist. rg5 01:10 Triage completed. rg5 01:18 XRAY Chest (1 view) In Process Unspecified. EDMS 03:02 Inserted saline lock: in right wrist, using aseptic technique. Blood collected. Flushed rg5 with 10 mL NS. 04:44 Luis Pro MD is Hospitalizing Provider. sp4 07:00 No provider procedures requiring assistance completed. Patient admitted, IV remains in ph place. Administered Medications: 00:54 Drug: Magnesium Sulfate IVPB 2 grams IVPB once over 2 hrs Route: IVPB; Infused Over: 2 rg5 hrs; Site: left forearm; 03:00 Follow up: Response: No adverse reaction; IV Status: Completed infusion rg5 02:00 Drug: Furosemide IVP 40 mg IVP once; give over 2 minutes Route: IVP; Site: left forearm;rg5 05:52 Follow up: Response: No adverse reaction rg5 04:47 Drug: Aspirin PO Chewable Tablet 324 mg PO once; 81 mg tablets x 4 Route: PO; rg5 05:52 Follow up: Response: No adverse reaction rg5 06:52 Drug: morphine IVP or IV 2 mg IVP once over 4 mins Route: IVP; Infused Over: 4 mins; rg5 Site: right wrist; Medication: 00:45 VIS not applicable for this client. rg5 Outcome: 04:45 Decision to Hospitalize by Provider. sp4 07:00 Admitted to ER Hold. Please see [facility] for further documentation. ph 07:00 Condition: stable 17:31 Patient left the ED. ph Signatures: Dispatcher [employer] [facility] Karely Siddiqui RN RN ph Potepalov, Sergey, MD MD sp4 Pankaj Villanueva RN RN rg5 Corrections: (The following items were deleted from the chart) 00:57 00:55 Allergies: No Known Allergies; rg5 rg5 01:10 00:39 Chief complaint: rg5 rg5 03:03 03:02 Inserted saline lock: 20 gauge in right wrist, using aseptic technique. rg5 rg5 03:09 03:03 BP 122 / 61; Pulse 56bpm; Resp 21bpm; Pulse Ox 100% 02 10lpm Non-rebreather mask; rg5 Pain 0/10, Adult; rg5 03:14 01:24 Reassessment: see triage assessment rg5 rg5 03:18 00:45 BP 167 / 78; Pulse 70bpm; Resp 22bpm; Pulse Ox 97% 02 8lpm Simple Mask; Temp 98F; rg5 Pain 0/10, Adult; rg5 03:19 03:01 Respiratory: Airway is patent Trachea midline Respiratory pattern is regular, rg5 symmetrical, Breath sounds with wheezes bilaterally. the patient has mild shortness of breath rg5 03:21 03:00 Reassessment: Patient and/or family updated on plan of care and expected rg5 duration. Pain level reassessed. Patient states symptoms have improved. rg5
--- NOTE | 2024-03-30 04:45 | EDPHYS ---
Physician Documentation [facility] Name: David Felton Age: 64 yrs Sex: Male : 1960 Arrival Date: 03/30/2024 Time: 00:28 Bed 19 Private MD: ED Physician Negro Larios HPI: 03/30 00:39 This 64 yrs old Black Male presents to ER via Unassigned with complaints of Shortness sp4 Of Breath. 04:42 Patient presents with EMS with acute dyspnea and bilateral expiratory wheezing. History sp4 of diabetes mellitus, hypertension, home medications include atorvastatin, amlodipine, furosemide, hydralazine. Historical: - Allergies: 00:55 Heparin; rg5 - PMHx: 00:55 Hypertensive disorder; Chronic systolic heart failure; rg5 - PSHx: 00:55 diverticulitis SX; rg5 - Immunization history:: Adult Immunizations up to date. - Infectious Disease History:: Denies. - Social history:: Smoking status: Patient/guardian denies using tobacco, the patient reports quitting approximately 5 years ago. ROS: 04:44 Constitutional: Negative for fever, chills, and weight loss, positive dyspnea and sp4 wheezing 04:44 All other systems are negative, Exam: 04:39 Constitutional: This is a well developed, well nourished patient who is awake, sickly sp4 debilitated male acutely dyspneic Head/Face: Normocephalic, atraumatic. Eyes: Pupils equal round and reactive to light, extra-ocular motions intact. Lids and lashes normal. Conjunctiva and sclera are not injected. Cornea within normal limits. Periorbital areas with no swelling, redness, or edema. ENT: Nares patent. No nasal discharge, no septal abnormalities noted. Tympanic membranes are normal and external auditory canals are clear. Oropharynx with no redness, swelling, or masses, exudates, or evidence of obstruction, uvula midline. Mucous membranes moist. Neck: Trachea midline, no thyromegaly or masses palpated, and no cervical lymphadenopathy. Supple, full range of motion without nuchal rigidity, or vertebral point tenderness. Chest/axilla: Normal chest wall appearance and motion. Nontender with no deformity. No lesions are appreciated. Cardiovascular: Regular rate and rhythm with a normal S1 and S2. No gallops, murmurs, or rubs. Normal PMI, no JVD. No pulse deficits. Respiratory: Lungs have equal breath sounds bilaterally, bilateral expiratory wheezes on auscultation, dyspnea and tachypnea Abdomen/GI: Soft, with normal bowel sounds. No distension or tympany. No guarding or rebound. No evidence of tenderness throughout. Back: No spinal tenderness. No costovertebral tenderness. Male : Normal genitalia with no discharge or lesions. Skin: Warm, dry with normal turgor. Normal color with no rashes, no lesions, and no evidence of cellulitis. MS/ Extremity: Pulses equal, no cyanosis. Chronic right arm swelling, chronic right arm edema, chronic ischemia of fingers of the right hand, bilateral below-knee amputee, Neuro: Awake and alert, GCS 15, oriented to person, place, time, and situation. Cranial nerves II-XII grossly intact. Motor strength 5/5 in all extremities. Sensory grossly intact. Psych: Awake, alert, with orientation to person, place and time. Behavior, mood, and affect are within normal limits 04:39 ECG was reviewed by the Attending Physician. Positive for normal sinus rhythm at the rate of 62 EKG time 0047 left axis deviation right bundle branch. Vital Signs: 00:45 BP 167 / 78; Pulse 70; Resp 26; Temp 98; Pulse Ox 97% on 8 lpm Simple Mask; Pain 0/10; rg5 00:58 BP 167 / 78; Pulse 70; Resp 22; Temp 98.3; Pulse Ox 97% on 8 lpm Simple Mask; Weight rg5 102.51 kg; Height 4 ft. 11 in. ; Pain 0/10; 01:30 BP 131 / 58; Pulse 56; Resp 25; Pulse Ox 100% on 15 lpm Non-rebreather mask; rg5 02:30 BP 122 / 61; Pulse 56; Resp 21; Pulse Ox 100% on 10 lpm Non-rebreather mask; Pain 0/10; rg5 03:00 BP 152 / 70; Pulse 58; Resp 22 S; Pulse Ox 100% on 40 lpm BiPAP; rg5 04:15 BP 154 / 65; Pulse 58; Resp 20; Pulse Ox 99% on bipap; rg5 05:30 BP 145 / 78; Pulse 58; Resp 19; Pulse Ox 99% ; Pain 0/10; rg5 06:30 BP 128 / 57; Pulse 55; Resp 18; Temp 98; Pulse Ox 99% on bipap; Pain 0/10; rg5 00:58 Body Mass Index 45.65 (102.51 kg, 149.86 cm) rg5 00:45 Pain Scale: Adult rg5 00:58 Pain Scale: Adult rg5 02:30 Pain Scale: Adult rg5 05:30 Pain Scale: Adult rg5 06:30 Pain Scale: Adult rg5 Marj Coma Score: 00:45 Eye Response: spontaneous(4). Motor Response: obeys commands(6). Verbal Response: rg5 oriented(5). Total: 15. MDM: 00:42 Patient medically screened. sp4 04:39 ED course: EXAM: XR Chest, 1 View CLINICAL HISTORY: The patient is 64 years old and is sp4 Male; CHEST PAIN TECHNIQUE: Frontal view of the chest. COMPARISON: No relevant prior studies available. FINDINGS: LUNGS: Diffuse interstitial opacities are present throughout the lungs. PLEURAL SPACE: Small pleural effusions are suggested. No pneumothorax. HEART: The cardiac silhouette is enlarged. MEDIASTINUM: Unremarkable. Normal mediastinal contour. BONES/JOINTS: Evidence of median sternotomy is noted. No acute fracture. UPPER ABDOMEN: Unremarkable as visualized. IMPRESSION: Findings suggest mild vascular congestion and small pleural effusions. . 04:44 Differential diagnosis: Anxiety Reaction asthma, Bronchitis CHF exacerbation, Chronic sp4 Obstructive Pulmonary Disease Myocardial Infarction. Data reviewed: vital signs, nurses notes, EMS record, old medical records, lab test result(s), EKG, radiologic studies, plain films. ED course: Stable for admission for further management. 03/30 00:40 Order name: Basic Metabolic Panel; Complete Time: 04:03/30 00:40 Order name: CBC with Diff; Complete Time: 04:03/30 00:40 Order name: LFT's; Complete Time: 04:03/30 00:40 Order name: Magnesium; Complete Time: :03/30 00:40 Order name: NT PRO-BNP; Complete Time: 04:03/30 00:40 Order name: PT-INR; Complete Time: 04:03/30 00:40 Order name: Troponin HS; Complete Time: 04:03/30 00:41 Order name: Blood Culture Adult (2) 4 03/30 00:41 Order name: Urine Drug Screen; Complete Time: 06:15 4 03/30 00:42 Order name: Alcohol Level; Complete Time: 04:26 4 03/30 00:42 Order name: T4 Free; Complete Time: 04:26 4 03/30 00:42 Order name: TSH; Complete Time: 04:26 [facility] 03/30 07:03 Order name: CBC with Automated Diff EDMS 03/30 07:03 Order name: CBC with Automated Diff EDMS 03/30 07:03 Order name: CBC with Automated Diff EDMS 03/30 07:03 Order name: CBC with Automated Diff EDMS 03/30 07:03 Order name: Comprehensive Metabolic Panel EDMS 03/30 07:03 Order name: Comprehensive Metabolic Panel EDMS 03/30 07:03 Order name: Comprehensive Metabolic Panel EDMS 03/30 07:03 Order name: Comprehensive Metabolic Panel EDMS 03/30 07:03 Order name: Lipid Profile EDMS 03/30 07:03 Order name: Lipid Profile EDMS 03/30 07:03 Order name: Magnesium EDMS 03/30 07:03 Order name: Magnesium EDMS 03/30 07:03 Order name: Magnesium EDMS 03/30 07:03 Order name: Magnesium EDMS 03/30 07:03 Order name: Phosphorus EDMS 03/30 07:03 Order name: Phosphorus EDMS 03/30 07:03 Order name: Phosphorus EDMS 03/30 07:03 Order name: Phosphorus EDMS 03/30 07:03 Order name: Protime (+INR) EDMS 03/30 07:03 Order name: Protime (+INR) EDMS 03/30 07:03 Order name: Protime (+INR) EDMS 03/30 07:03 Order name: Protime (+INR) EDMS 03/30 08:32 Order name: Glucose, Ancillary Testing EDMS 03/30 00:40 Order name: XRAY Chest (1 view) 03/30 00:40 Order name: Cardiac monitoring; Complete Time: 00:53 [facility] 03/30 00:40 Order name: EKG - Nurse/Tech; Complete Time: 00:53 [facility] 03/30 00:40 Order name: IV Saline Lock; Complete Time: 00:53 4 03/30 00:40 Order name: Labs collected and sent; Complete Time: 00:53 sp4 03/30 00:40 Order name: O2 Per Protocol; Complete Time: 00:54 sp4 03/30 00:40 Order name: O2 Sat Monitoring; Complete Time: 00:54 sp4 EC:39 Rate is 62 beats/min. Rhythm is regular, Sinus Rhythm. Left axis deviation noted. RI sp4 interval is normal. QRS interval is prolonged. QT interval is normal. No ST changes noted. Clinical impression: No evidence of ischemia. Interpreted by me. Reviewed by me. Administered Medications: 00:54 Drug: Magnesium Sulfate IVPB 2 grams IVPB once over 2 hrs Route: IVPB; Infused Over: 2 rg5 hrs; Site: left forearm; 03:00 Follow up: Response: No adverse reaction; IV Status: Completed infusion rg5 02:00 Drug: Furosemide IVP 40 mg IVP once; give over 2 minutes Route: IVP; Site: left forearm;rg5 05:52 Follow up: Response: No adverse reaction rg5 04:47 Drug: Aspirin PO Chewable Tablet 324 mg PO once; 81 mg tablets x 4 Route: PO; rg5 05:52 Follow up: Response: No adverse reaction rg5 06:52 Drug: morphine IVP or IV 2 mg IVP once over 4 mins Route: IVP; Infused Over: 4 mins; rg5 Site: right wrist; Disposition Summary: 03/30/24 04:45 Hospitalization Ordered Notes: Hospitalization Status: Inpatient Admission sp4 Provider: Luis Pro sp4 Condition: Fair sp4 Problem: new sp4 Symptoms: have improved sp4 Bed/Room Type: Standard 4 Location: Telemetry/MedSurg (Inpatient)(03/30/24 16:15) Room Assignment: 218(03/30/24 16:15) Diagnosis - Acute on chronic diastolic (congestive) heart failure sp4 - Acute pulmonary edema sp4 Forms: - Medication Reconciliation Form sp4 - SBAR form sp4 - Leadership Thank You Letter sp4 Signatures: Dispatcher [employer] Germania Elena Shelly, FNP-C FNP-Trupti Mcginnis RN RN cg Potepalov, Sergey, MD MD sp4 Pankaj Villanueva RN RN rg5 Corrections: (The following items were deleted from the chart) 00:40 00:40 BASIC METABOLIC PANEL+C.LAB.BRZ ordered. EDMS EDMS 00:40 00:40 CBC+H.LAB.BRZ ordered. EDMS EDMS 00:40 00:40 HEPATIC FUNCTION+C.LAB.BRZ ordered. EDMS EDMS 00:40 00:40 MAGNESIUM+C.LAB.BRZ ordered. EDMS EDMS 00:40 00:40 PROBNP+C.LAB.BRZ ordered. EDMS EDMS 00:40 00:40 PROTIME (+INR)+COAG.LAB.BRZ ordered. EDMS EDMS 00:40 00:40 Troponin High Sensitivity+C.LAB.BRZ ordered. EDMS EDMS 00:40 00:40 Chest Single View+RAD.RAD.BRZ ordered. EDMS EDMS 00:42 00:42 ETHANOL+C.LAB.BRZ ordered. EDMS EDMS 00:42 00:42 T4 FREE+C.LAB.BRZ ordered. EDMS EDMS 00:57 00:55 Allergies: No Known Allergies; rg5 rg5 04:27 04:27 BiPap ([employer] Only)+RC.RAD.BRZ ordered. EDMS EDMS 04:58 04:27 Arterial Blood Gas+RC.LAB.BRZ ordered. EDMS EDMS 05:05 04:45 Telemetry/MedSurg (Inpatient) sp4 cg 05:05 04:45 sp4 cg 05:52 01:31 Gandhi ordered. sp4 rg5 16:15 05:05 BR ER HOLD cg bd 16:15 05:05 ERHOLD- cg bd
[2024-03-30] MEDS ORDERED: ASPIRIN 81 MG CHEWABLE TABLET ONE (04:56)
[2024-03-30 05:43] LABS: Barbiturates NEGATIVE (NEGATIVE); Benzodiazepines NEGATIVE (NEGATIVE); Cocaine NEGATIVE (NEGATIVE); METHAMPHETAM NEGATIVE (NEGATIVE); Methadone NEGATIVE (NEGATIVE); Opiates NEGATIVE (NEGATIVE); Phencyclidine NEGATIVE (NEGATIVE); THC Cannibis NEGATIVE (NEGATIVE)
[2024-03-30] MEDS ORDERED: MORPHINE 2 MG/ML SYR ONE (06:46)
[2024-03-30] MEDS ORDERED: MORPHINE 2 MG/ML SYR IV PRN (06:49)
[2024-03-30] MEDS ORDERED: SODIUM CHLORIDE 0.9% 10ML INJ IV PRN (06:49)
[2024-03-30] MEDS ORDERED: D50W 25 GM/50 ML SYRINGE IV PRN (06:49)
[2024-03-30] MEDS ORDERED: GLUCAGON 1 MG/VIAL IM PRN (06:49)
--- NOTE | 2024-03-30 06:49 | P.HP ---
Certification for Inpatient Patient admitted to: Inpatient With expected LOS: >2 Midnights Patient will require the following post-hospital care: None Practitioner: I am a practitioner with admitting privileges, knowledge of patient current condition, hospital course, and medical plan of care. Services: Services provided to patient in accordance with Admission requirements found in Title 42 Section 412.3 of the Code of Federal Regulations <Marcella Grossman - Last Filed: 03/30/24 14:23> Patient History Date of Service: 03/30/24 Primary Care Provider: [facility] Reason for admission: CHF with respiratory failure History of Present Illness: Mr. 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 His PCP and agile project manager, Dr. Moreland, are at [facility]. He arrived at the emergency department this morning with an acute onset of shortness of breath. In the emergency department he was given 40mg of Lasix IV push, magnesium sulfate 2g IV piggyback, and placed on BiPAP. At present he is feeling better, vital signs stable at 118/73, 58, 24, 99% on BiPAP. He is having some pain in his lower extremities. Morphine 2 mg IV push given. Labs: Sodium 141, potassium 3.7, chloride 112, bicarb 22, BUN 34, creatinine 2.13 with a GFR of 34, LFTs unremarkable, white count 8.5, H/H 10.8/33.6 with platelets of 174, proBNP 4155, INR 1.7, TSH 3.75 Imaging: CXR from ED read per [facility] (No report) Last ECHO at this facility 11/08/21 MILD MITRAL, AORTIC, AND TRICUSPID REGURGITATION. NORMAL LEFT VENTRICULAR SIZE AND FUNCTION. NO PERICARDIAL EFFUSION. TECHNOLOGIST: ISABELLA ESCOBAR Dictated By: Jose E Graves MD 11/08/21 1350 Home medications list reviewed: Yes - Past Medical/Surgical History Diabetic: No -: Prior history of diabetes-patient states his diabetes has resolved. 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 Status post bilateral BKA, lives with . - Family History Mother -: Heart disease, Stroke - Social History Smoking Status: Former smoker Alcohol use: No CD- Drugs: No Caffeine use: No Place of Residence: Home <Marcella Grossman - Last Filed: 03/30/24 14:23> Date of Service: 03/31/24 <Darrian Petit - Last Filed: 03/31/24 03:16> Allergies heparin Adverse Reaction (Severe, Verified 03/30/24 10:32) Home Medications: Atorvastatin Calcium [Lipitor*] 1 tab PO DAILY 11/06/21 Amlodipine [Norvasc*] 10 mg PO DAILY #30 tab 11/08/21 Furosemide [Lasix*] 40 mg PO DAILY #30 tab 11/08/21 Hydralazine [Apresoline*] 10 mg PO BID PRN #60 tab 11/08/21 Review of Systems 10-point ROS is otherwise unremarkable General: Malaise Respiratory: Shortness of Breath, SOB with Excertion, Wheezing, As per HPI Cardiovascular: Orthopnea, Paroxysmal Noc. Dyspnea, As per HPI <Marcella Grossman - Last Filed: 03/30/24 14:23> Physical Examination - Vital Signs Pulse: 58 Pulse Ox (%): 100 - Physical Exam General: Alert, Oriented x3, Cooperative, Moderate distress HEENT: Atraumatic, Normocephalic Neck: Supple Respiratory: Diminished, Dull, Expiratory wheezes Cardiovascular: Normal pulses, Regular rate/rhythm, Other (Bradycardia at 58) Capillary refill: <2 Seconds Gastrointestinal: No tenderness (Tense) Musculoskeletal: No clubbing, No contractures, Other (Bilateral BKA) Integumentary: No rashes Neurological: Normal speech, Normal tone, Normal affect, Other (On BiPAP) Lymphatics: No axilla or inguinal lymphadenopathy External genitalia: Deferred Rectal: Deferred - Studies Laboratory Data (last 24 hrs) 03/30/24 03/30/24 03/30/24 01:05 01:05 01:05 WBC 8.50 Hgb 10.8 L Hct 33.6 L Plt Count 174 PT 18.8 H INR 1.70 Sodium 141 Potassium 3.7 BUN 34 H Creatinine 2.13 H Glucose 140 H Magnesium 2.3 Total Bilirubin 0.6 AST 16 ALT 15 L Alkaline Phosphatase 84 <Marcella Grossman Keyon - Last Filed: 03/30/24 14:23> Assessment and Plan - Plan CHF with respiratory failure BiPAP Strict NICOLE Daily weight Diuresis Eliquis 5 mg p.o. twice daily Record review for last echo (last [facility] interpretation summary: "Left ventricle: Left ventricle size is normal. Normal wall thickness. Septal motion is consistent with postoperative status. Hyperdynamic systolic function with a visually estimated EF of 65 to 70%. Unable to assess diastolic function due to mitral valve surgery. Mitral valve: Bioprosthetic valve. MV mean gradient is 6.8 mmHg at 69 bpm. Peak E velocity is 1.9 m/s. DVI is 2.95. Aortic valve: Bioprosthetic valve. Mild paravalvular leak. DVI: 0.26. Normal is greater than 0.25. AV mean gradient is 30 mmHg. AV peak velocity is 360 cm/s. Tricuspid valve: Insufficient tricuspid regurgitation jet to estimate RVSP. RA pressure is 5-10 mmHg") Hypertension Monitor and trend Continue home medications Hyperlipidemia Lipids in a.m. Continue home medications Diabetes Glucose monitoring 18 units 70/30 subcu twice daily AC GI/VTE prophylaxis Protonix/Eliquis - Advance Directives Does patient have a Living Will: No Does patient have a Durable POA for Healthcare: No - Code Status/Comfort Care Code Status Assessed: Yes <Marcella Grossman Keyon - Last Filed: 03/30/24 14:23> Date of Service: 03/30/24 Chart has been reviewed. Events of the last 24 hours have been noted. Case discussed with JASPAL. I performed a substantial part of the MDM during this patient's care today. I personally made or approved the documented management pl an and acknowledge its risk of complications. I agree with the findings and documentation provided in the JASPAL's notes <Darrian Petit - Last Filed: 03/31/24 03:16>
[2024-03-30] MEDS: INSULIN 70/30 100 UNITS/ML SQ SCH (07:30)
[2024-03-30] MEDS: carvediloL 12.5 MG TAB PO SCH (08:00)
[2024-03-30] MEDS ORDERED: HYDRALAZINE HCL 25 MG TABLET ONE (08:40)
[2024-03-30] MEDS ORDERED: PANTOPRAZOLE 40 MG INJ ONE (08:40)
[2024-03-30] MEDS ORDERED: AMLODIPINE 10 MG TAB ONE (08:41)
[2024-03-30] MEDS ORDERED: ASPIRIN EC 81 MG TAB PO ONE (08:41)
[2024-03-30] MEDS ORDERED: APIXABAN 5 MG TABLET ONE (08:41)
[2024-03-30] MEDS ORDERED: carvediloL 6.25 MG TAB ONE (08:41)
[2024-03-30] MEDS: HYDRALAZINE HCL 25 MG TABLET PO SCH (09:00)
[2024-03-30] MEDS: ASPIRIN EC 81 MG TAB PO SCH (09:00)
[2024-03-30] MEDS: PANTOPRAZOLE 40 MG INJ IVP SCH (09:00)
[2024-03-30] MEDS: APIXABAN 5 MG TABLET PO SCH (09:00)
[2024-03-30] MEDS: BUMETANIDE 1 MG/4 ML VIAL IV SCH (09:00)
[2024-03-30] MEDS: AMLODIPINE 10 MG TAB PO SCH (09:00)
[2024-03-30] MEDS: IPRATROPIUM BROM 0.5MG/2.5ML NEB SCH (09:50)
[2024-03-30] MEDS: ARFORMOTEROL TARTRATE 15 MCG/2 ML VIAL.NEB NEB SCH (09:50)
[2024-03-30] MEDS ORDERED: IPRATROPIUM BROM 0.5MG/2.5ML ONE ×2 (09:54→14:08)
[2024-03-30] MEDS ORDERED: ARFORMOTEROL TARTRATE 15 MCG/2 ML VIAL.NEB ONE (09:55)
[2024-03-30 10:47] VITALS: BMI 45.6
--- NOTE | 2024-03-30 15:04 | RAD REPORT ---
EXAM DESCRIPTION: RAD - Chest Single View - 03/30/2024 1:16 am CLINICAL HISTORY: The patient is 64 years old and is Male; CHEST PAIN TECHNIQUE: Frontal view of the chest. COMPARISON: No relevant prior studies available. FINDINGS: LUNGS: Diffuse interstitial opacities are present throughout the lungs. PLEURAL SPACE: Small pleural effusions are suggested. No pneumothorax. HEART: The cardiac silhouette is enlarged. MEDIASTINUM: Unremarkable. Normal mediastinal contour. BONES/JOINTS: Evidence of median sternotomy is noted. No acute fracture. UPPER ABDOMEN: Unremarkable as visualized. IMPRESSION: Findings suggest mild vascular congestion and small pleural effusions. Electronically signed by: Kristal Jeff MD 03/30/2024 02:19 AM CDT RP Due to temporary technical issues with the PACS/Fluency reporting system, reports are being signed by the in house radiologist without review as a courtesy to ensure prompt reporting. The interpreting r adiologist is fully responsible for the content of the report.
[2024-03-30] MEDS: ATORVASTATIN 40 MG TAB PO SCH (20:41)
[2024-03-31 05:05] LABS: Absolute Lymphocytes (CBC) 0.3 K/uL (0.7-4.9); Absolute Monocytes 0.4 K/uL (0.1-1.3); Absolute Neutrophil 7.4 K/uL (1.8-8.0); Basophils % 0.3 % (0-1.3); Hematocrit 29.8 % (39.6-49.0); Hemoglobin 9.7 g/dL (13.6-17.9); Lymphocytes % 3.3 % (15.3-44.8); MCHC 32.4 g/dL (32.0-36.0); MCV 80.3 fL (80-100); MPV 9.2 fL (7.6-11.3); Monocytes % 4.8 % (3.3-12.3); Neutrophils % 91.6 % (41.7-73.7); Platelets 158 thou/uL (152-406); RBC Red Blood Cell Count 3.71 M/uL (4.33-5.43); Red Cell Distribution Width 17.5 % (12.1-15.2)
[2024-03-31 05:16] LABS: Albumin 2.9 g/dL (3.4-5.0); Albumin/Globulin Ratio 0.8 (1.1-1.8); Alkaline Phosphatase 71 U/L (45-117); Anion Gap 11.5 mEq/L (5.0-15.0); BUN Blood Urea Nitrogen 51 mg/dL (7-18); Bicarbonate 23 mEq/L (21-32); Bilirubin Total 0.4 mg/dL (0.2-1.0); Globulin 3.8 g/dL (2.3-3.5); Glomerular Filtration Rate 27 ml/min (=/>90); Glucose Level 206 mg/dL (74-106); HDL Cholesterol 35 mg/dL (40-60); LDL Cholesterol, Calculated 30 mg/dL (<130); LDL Cholesterol,Calc NonReport 30; Magnesium 2.5 mg/dL (1.6-2.4); Phosphorus 4.7 mg/dL (2.5-4.9); Potassium 4.5 mEq/L (3.5-5.1); Protein, Total 6.7 g/dL (6.4-8.2); Sodium Level 141 mEq/L (136-145)
[2024-03-31 05:19] LABS: ALT/SGPT < 14 U/L (16-61); AST/SGOT < 10 U/L (15-37)
[2024-03-31 05:20] LABS: PT Prothrombin Time 23.2 SECONDS (9.4-12.5); Protime INR 2.12
[2024-03-31 06:39] LABS: Differential Total Cells Count 100; Lymphocytes 6 % (15-42); Monocytes 5 % (0-10); Segmented Neutrophils 89 % (40-80)
[2024-03-31 06:40] LABS: Blood Morphology Comment NOT SEEN (NOT SEEN); Platelet Estimate ADEQ
--- NOTE | 2024-03-31 09:16 | P.PN ---
Subjective Date of Service: 03/31/24 Primary Care Provider: [facility] Chief Complaint: CHF with respiratory failure Subjective: Improving (slowly, Pt is more comfortable, required BiPap overnight. SpO2 90-94%. Denies chest pain. Renal function worse overnight) <Marcella Grossman - Last Filed: 03/31/24 09:09> Date of Service: 03/31/24 <Jina Choudhury Dirk - Last Filed: 03/31/24 12:28> Review of Systems 10-point ROS is otherwise unremarkable General: As per HPI Respiratory: Shortness of Breath Cardiovascular: Orthopnea Musculoskeletal: Other (Bilateral BKA) Integumentary: Other (necrotic right third fingertip) <Marcella Grossman - Last Filed: 03/31/24 09:09> Physical Examination - Vital Signs Temperature: 98.1 F Blood Pressure: 124/60 Pulse: 57 Respirations: 16 Pulse Ox (%): 91 - Physical Exam General: Alert HEENT: Atraumatic, Normocephalic Neck: Supple Respiratory: Normal air movement, Other (lying more flat today, BiPap overnight, trying O2 via N/C this am) Cardiovascular: Regular rate/rhythm, Systolic murmur Capillary refill: <2 Seconds (centrally) Gastrointestinal: Soft and benign Musculoskeletal: Other (bilateral BKA, distal digits of hands. ) Integumentary: No rashes, Other (right third digit with necrotic tip, mild bleeding at the junction between viable tissue and necrotic area) Neurological: Normal tone, Normal affect Lymphatics: No axilla or inguinal lymphadenopathy External genitalia: Deferred Rectal: Deferred <Marcella Grossman - Last Filed: 03/31/24 09:09> Assessment And Plan - Plan CHF with respiratory failure BiPAP Strict I&O Daily weight Diuresis Eliquis 5 mg p.o. twice daily Record review for last echo (last [facility] interpretation summary: "Left ventricle: Left ventricle size is normal. Normal wall thickness. Septal motion is consistent with postoperative status. Hyperdynamic systolic function with a visually estimated EF of 65 to 70%. Unable to assess diastolic function due to mitral valve surgery. Mitral valve: Bioprosthetic valve. MV mean gradient is 6.8 mmHg at 69 bpm. Peak E velocity is 1.9 m/s. DVI is 2.95. Aortic valve: Bioprosthetic valve. Mild paravalvular leak. DVI: 0.26. Normal is greater than 0.25. AV mean gradient is 30 mmHg. AV peak velocity is 360 cm/s. T ricuspid valve: Insufficient tricuspid regurgitation jet to estimate RVSP. RA pressure is 5-10 mmHg") Hypertension Monitor and trend Continue home medications Hyperlipidemia Lipids in a.m. Continue home medications KINSEY monitor and trend Consult Dr. Fleming 2nd to increasing creatinine (2.13 to 2.62) previous record baseline creatinine around 1.5 renal ultrasound Diabetes Glucose monitoring 18 units 70/30 subcu twice daily AC Necrotic right third distal fingertip Consult Dr. Major GI/VTE prophylaxis Protonix/Eliquis <Marcella Grossman - Last Filed: 03/31/24 09:09> - Plan Pt seen and examined. I agree with the note by the ORTHOPEDIC PHYSICAL THERAPIST. Continue to diurese. Pt is fluid overloaded. He had preserved EF ( 65 - 70%) on Echo. Consulted Gen surgeon for the necrotic right 2ns and 3rd fingers. Continue home meds for other chronic medical problems. <Jina Choudhury - Last Filed: 03/31/24 12:28>
--- NOTE | 2024-03-31 15:49 | CON ---
Date of Consultation: 03/31/2024 Reason For Consultation: Elevated BUN, creatinine, fluid management. 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 The patient was in his regular state of health. The patient came to the hospital complaining from shortness of breath, increased leg swelling. Upon arrival to the hospital, the patient was hypoxemic. The patient was started on diuresis, on BiPAP. His shortness breath has been improved. Upon arrival, creatinine 2.1 with GFR 34. Reviewing the record for the patient, the patient baseline creatinine 1.5, GFR of 51 as of April 2023. The patient denied taking any nonsteroidal, no recent IV contrast. Past Medical History: Include: 1. 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 2. Diabetes, complicated with neuropathy, no retinopathy. 3. Hypertension. 4. Hyperlipidemia. 5. HIT. Past Surgical History: Include: 1. Below-knee amputation. 2. CABG. 3. Colon resection. Family History: Positive for CVA. Social History: Ex-smoker. Denied alcohol. Denied drugs abuse. Allergies: ALLERGY TO HEPARIN HIT. Home Medications: Include atorvastatin, Lasix, hydralazine, amlodipine. Review of Systems: Head and Neck: No red eye. No ear pain. GI: No nausea, no vomiting. : No polyuria, no dysuria, no hematuria. Counseling Center Manager: Not applicable. Respiratory: Has shortness of breath. Cardiovascular: Has orthopnea. Endocrine: No polydipsia. Skin: No rash. Neuro: No neuropathy. Musculoskeletal: Has low back pain. Physical Examination: Vital Signs: When I saw the patient, the patient lying in bed, shortness of breath. Blood pressure 124/60, pulse of 57, afebrile. Chest: Crackles, bilateral. Heart: S1, S2. Regular. Abdomen: Soft, nontender. Extremities: bilateral below-knee amputation. Gangrenous finger also on the right hand. Neurologic: Alert. No focality. Laboratory Data: WBC 8.1, hemoglobin 9.7, sodium 141, potassium 4.5, bicarb 23, BUN 51, creatinine 2.6, GFR 27. Yesterday, creatinine 2.1, GFR of 34, calcium 7.9, phosphorus 2.4, magnesium 2.5, albumin 2.9, TSH 3.7. ABG is still pending. Urinalysis not done yet. Chest x-ray showing cardiomegaly with congestion bilateral. Current Medications: The patient on include: 1. Amlodipine. 2. Atorvastatin. 3. Carvedilol. 4. Hydralazine 25 b.i.d. 5. Bumex 1 mg daily. 6. Pantoprazole. Assessment And Plan: 1. Acute kidney injury secondary to cardiorenal. Looked to me still on the dry side. I am going to continue on the diuresis and we will monitor the patient. We will send for full workup with the history of HIT and thrombocytopenia and anemia to rule out light chain disease. I am going to send for anemia workup, ferritin, and serum protein electrophoresis. I am going to send for PTH to evaluate the chronicity of the disease. 2. Hypertension. We will utilize blood pressure for more diuresis. 3. Congestive heart failure with exacerbation. We will try to optimize fluid status for the patient. We will continue diuresis. 4. Anemia with the presence of renal failure. Send for serum protein electrophoresis and anemia workup. 5. Congestive heart failure with exacerbation as above. 6. Marginal hypokalemia, resolved. Time spent examining the patient [id number] reviewing data lab and the radiology placing orders discussing the case with the patient discussing the case with the receiving team member including hospitalist and nursing staff more than 75 minutes GUIDO Voice ID: [id number] Report ID: [id number] PHIL
--- NOTE | 2024-03-31 20:54 | RAD REPORT ---
EXAM DESCRIPTION: US - Renal Ultrasound-Complete - 03/31/2024 3:18 pm CLINICAL HISTORY: renal failure COMPARISON: Renal Ultrasound-Complete dated 08/18/2021 TECHNIQUE: Sonographic grayscale and color flow images of the kidneys and bladder were obtained. FINDINGS: Both kidneys are normal in size, shape, and echotexture. Portions of the left kidney were difficult to visualize given caps. The right kidney measures 10.1 cm in length. No hydronephrosis, focal mass, or echogenic calculi. The left kidney measures 9.4 cm in length. No hydronephrosis, focal mass, or echogenic calculi. The urinary bladder is without gross abnormality seen, although there is suboptimally distended which limits evaluation. IMPRESSION: Unremarkable renal sonogram allowing for limitations mentioned above.
[2024-03-31 22:07] LABS: UR PROTEIN 477.6 mg/dL (<11.9); Urine Protein/Creatinine Ratio 3.62 ratio (<0.15)
[2024-04-01 06:18] LABS: Absolute Basophils 0.1 K/uL (0-0.5); Absolute Eosinophils 0.2 K/uL (0-0.5); Absolute Lymphocytes (CBC) 1.2 K/uL (0.7-4.9); Absolute Monocytes 0.7 K/uL (0.1-1.3); Basophils % 0.6 % (0-1.3); Eosinophils % 2.4 % (0-4.4); Hematocrit 30.1 % (39.6-49.0); Hemoglobin 9.8 g/dL (13.6-17.9); Lymphocytes % 14.3 % (15.3-44.8); MCH 25.9 pg (27.0-35.0); MCHC 32.4 g/dL (32.0-36.0); MPV 8.7 fL (7.6-11.3); Monocytes % 8.9 % (3.3-12.3); Neutrophils % 73.8 % (41.7-73.7); Nucleated Red Blood Cells % 0.1 % (0-0); Percent Reticulocyte Count 2.65 % (0.4-2.05); Platelets 190 thou/uL (152-406); RBC Red Blood Cell Count 3.77 M/uL (4.33-5.43); Red Cell Distribution Width 17.7 % (12.1-15.2)
[2024-04-01 06:19] LABS: PT Prothrombin Time 20.5 SECONDS (9.4-12.5); Protime INR 1.86
[2024-04-01 06:55] LABS: Albumin 2.9 g/dL (3.4-5.0); Albumin/Globulin Ratio 0.8 (1.1-1.8); Alkaline Phosphatase 66 U/L (45-117); BUN Blood Urea Nitrogen 64 mg/dL (7-18); Bicarbonate 23 mEq/L (21-32); Bilirubin Total 0.5 mg/dL (0.2-1.0); Creatine Phosphokinase 59 U/L (39-308); Ferritin 226.8 ng/mL (26-388); Globulin 3.7 g/dL (2.3-3.5); Glomerular Filtration Rate 24 ml/min (=/>90); Glucose Level 93 mg/dL (74-106); Magnesium 2.6 mg/dL (1.6-2.4); Phosphorus 4.2 mg/dL (2.5-4.9); Protein, Total 6.6 g/dL (6.4-8.2); Sodium Level 141 mEq/L (136-145); Transferrin 180 mg/dL (200-360)
[2024-04-01 06:56] LABS: ALT/SGPT < 14 U/L (16-61); AST/SGOT < 10 U/L (15-37)
[2024-04-01 07:11] LABS: Rheumatoid Factor NEG (NEG)
--- NOTE | 2024-04-01 09:24 | P.PN ---
Date of Service: 04/01/24 Chief Complaint: CHF with respiratory failure Subjective: Improving (slowly, Pt is more comfortable, required BiPap overnight. SpO2 90-94%. Denies chest pain. Renal function worse overnight) Date of Service: 04/01/24 Review of Systems 10-point ROS is otherwise unremarkable General: As per HPI Respiratory: Shortness of Breath Cardiovascular: Orthopnea Musculoskeletal: Other (Bilateral BKA) Integumentary: Other (necrotic right third fingertip) Physical Examination - Vital Signs reviewed - Physical Exam General: Alert HEENT: Atraumatic, Normocephalic Neck: Supple Respiratory: Normal air movement, O2 via N/C this am, Spo2 94-95% Cardiovascular: Regular rate/rhythm, Systolic murmur Capillary refill: <2 Seconds (centrally) Gastrointestinal: Soft and benign Musculoskeletal: bilateral BKA, distal digits of hands. Integumentary: No rashes, Other (right third digit with necrotic tip, mild bleeding at the junction between viable tissue and necrotic area) Neurological: Normal tone, Normal affect Lymphatics: No axilla or inguinal lymphadenopathy External genitalia: Deferred Rectal: Deferred Assessment And Plan - Plan CHF with respiratory failure BiPAP decreased to O2 via NC with SpO2 94% 04/01/24 Strict I&O Daily weight Diuresis Eliquis 5 mg p.o. twice daily Record review for last echo (last [facility] interpretation summary: "Left ventricle: Left ventricle size is normal. Normal wall thickness. Septal motion is consistent with postoperative status. Hyperdynamic systolic function with a visually estimated EF of 65 to 70%. Unable to assess diastolic function due to mitral valve surgery. Mitral valve: Bioprosthetic valve. MV mean gradient is 6.8 mmHg at 69 bpm. Peak E velocity is 1.9 m/s. DVI is 2.95. Aortic valve: Bioprosthetic valve. Mild paravalvular leak. DVI: 0.26. Normal is greater than 0.25. AV mean gradient is 30 mmHg. AV peak velocity is 360 cm/s. Tricuspid valve: Insufficient tricuspid regurgitation jet to estimate RVSP. RA pressure is 5-10 mmHg") Hypertension Monitor and trend Continue home medications Hyperlipidemia Lipids in a.m. Continue home medications KINSEY monitor and trend Consult Dr. Fleming 2nd to increasing creatinine (2.13 to 2.62) 04/01 increased to 2.86 previous record baseline creatinine around 1.5 renal ultrasound - normal Diabetes Glucose monitoring 18 units 70/30 subcu twice daily AC Necrotic right third distal fingertip Consult Dr. Major - finger will probably autoamputate 04/01/24 RUE edema DVT r/o US ordered GI/VTE prophylaxis Protonix/Eliquis <Marcella Grossman - Last Filed: 04/01/24 09:25> Pt seen and examined. I agree with the note by the CRIMINAL DEFENSE LAWYER. Continue to diurese with bumex.. Pt is fluid overloaded. Fluid balance is - 520 cc. He had preserved EF ( 65 - 70%) on Echo. Consulted Gen surgeon for the necrotic right 2nd and 5th fi ngers. The necrotic finger will likely fall off. He does not want any surgical intervention. Continue home meds for other chronic medical problems. <Jina Choudhury - Last Filed: 04/01/24 10:40>
[2024-04-01] MEDS: INSULIN 70/30 100 UNITS/ML SQ ONE (10:06)
--- NOTE | 2024-04-01 11:51 | EKG ---
Test Date: 2024-03-30 Test Time: 00:47:43 Salesperson Handbags: NANCY MEASUREMENT RESULTS: Intervals: Rate: 62 OH: 136 QRSD: 170 QT: 534 QTc: 542 [place]: P: 90 OH: 136 QRS: -80 T: 39 INTERPRETIVE STATEMENTS: Normal sinus rhythm Left axis deviation Right bundle branch block Cannot rule out Inferior infarct, age undetermined Abnormal ECG Compared to ECG 11/06/2021 19:38:01 Left-axis deviation now present Right bundle-branch block now present Myocardial infarct finding now present T-wave abnormality no longer present Possible ischemia no longer present Prolonged QT interval no longer present Electronically Signed On 04-01-24 11:48:40 CDT by Ceferino Bojorquez
--- NOTE | 2024-04-01 11:52 | RAD REPORT ---
EXAM DESCRIPTION: US - UPPER EXTREMITY VENOUS UNILATE - 04/01/2024 10:19 am CLINICAL HISTORY: Edema COMPARISON: None. TECHNIQUE: Real-time sonographic evaluation of the right upper extremity deep venous system was perf ormed. FINDINGS: Normal compressibility, flow augmentation, phasic flow and spontaneous flow is identified in the right upper extremity deep venous system. No intraluminal filling defects seen. Mild subcutan eous edema along the forearm. IMPRESSION: No DVT in the right upper extremity.
[2024-04-01] MEDS: SOD FERRIC GLUC COMPLX/SUCROSE 250 MG in NA CHLORIDE 0.9% 250 ML IV SCH (12:49)
--- NOTE | 2024-04-01 14:02 | RAD REPORT ---
EXAM DESCRIPTION: RADChest Single View04/01/2024 11:54 am CLINICAL HISTORY: COPD COMPARISON: Chest Single View dated 03/30/2024; Chest Single View dated 11/06/2021; Chest Single View d ated 08/19/2021; Chest Single View dated 08/16/2021 TECHNIQUE: Portable AP view of the chest. FINDINGS: Interval improvement of central interstitial prominence. Patchy right more than left basil ar airspace opacities with blunting of the right costophrenic angle, stable, which may suggest a smal l right pleural effusion. No new focal airspace opacity. No pneumothorax or sizable effusion. The ca rdiomediastinal contours are unchanged. IMPRESSION: Interval improvement of central interstitial prominence suggesting improving central con gestion.
--- NOTE | 2024-04-01 14:57 | PN ---
Date of Progress Note: 04/01/2024 Subjective: The patient was admitted to the hospital with acute kidney injury, cardiorenal. The patient was started on diuresis. Workup is still showing cardiorenal with nephrotic range proteinuria. Kidney function continued to decline. Objective: Vital Signs: Blood pressure 148/68, pulse of 51, afebrile. Chest: Crackles, bilateral. Heart: S1, S2. Regular. Abdomen: Soft, nontender. Extremities: Plus edema. Neuro: Alert. No focality, no tremor. Laboratory Data: WBC 8.2, hemoglobin 9.8. Sodium 141, potassium 4, bicarb 23, BUN 64, creatinine 2.8, calcium 8.3. Iron saturation 14, ferritin 226. Serum protein electrophoresis is still pending. B12 of 1700. PTH 158. PC ratio of 3.6. Current Medications: The patient is on include Bumex 1 mg daily, amlodipine 10, atorvastatin, carvedilol 12.5, hydralazine 25 b.i.d., pantoprazole, insulin. Assessment And Plan: 1. Acute kidney injury secondary to cardiorenal. The patient is still on the overvolume side. I am going to continue diuresis. The patient had dialysis last year with acute kidney injury, then weaned from dialysis. We will continue to monitor closely. I do not see the need to initiate renal replacement therapy for the time being. 2. Hypertension. We will utilize blood pressure for more diuresis. We will follow up. I am going to go ahead and get repeated chest x-ray for better evaluation of the fluid status for the patient. 3. Congestive heart failure with exacerbation as above. 4. Nephrotic range of proteinuria, mostly secondary to diabetes. Serum protein electrophoresis is still pending. 5. Iron deficiency anemia. We will start the patient on iron and we will follow up. 6. Secondary hyperparathyroidism. No need for calcitriol for the time being. We will follow up. Time spent examining the patient [id number] reviewing data lab and the radiology placing orders discussing the case with the patient discussing the case with the steam crane operator including hospitalist and nursing staff more than 55 minutes GUIDO Voice ID: [id number] Report ID: [id number] PHIL
[2024-04-02 05:40] LABS: Absolute Eosinophils 0.3 K/uL (0-0.5); Absolute Lymphocytes (CBC) 1.2 K/uL (0.7-4.9); Absolute Monocytes 0.8 K/uL (0.1-1.3); Absolute Neutrophil 5.7 K/uL (1.8-8.0); Basophils % 0.3 % (0-1.3); Hemoglobin 9.8 g/dL (13.6-17.9); Lymphocytes % 15.1 % (15.3-44.8); MCH 26.4 pg (27.0-35.0); MCHC 32.6 g/dL (32.0-36.0); MPV 9.4 fL (7.6-11.3); Monocytes % 9.6 % (3.3-12.3); Nucleated Red Blood Cells % 0.1 % (0-0); Platelets 169 thou/uL (152-406); Red Cell Distribution Width 17.7 % (12.1-15.2)
[2024-04-02 05:58] LABS: ALT/SGPT 16 U/L (16-61); AST/SGOT < 10 U/L (15-37); Albumin/Globulin Ratio 0.9 (1.1-1.8); Alkaline Phosphatase 59 U/L (45-117); BUN Blood Urea Nitrogen 59 mg/dL (7-18); Bicarbonate 26 mEq/L (21-32); Bilirubin Total 0.5 mg/dL (0.2-1.0); Globulin 3.4 g/dL (2.3-3.5); Glomerular Filtration Rate 26 ml/min (=/>90); Glucose Level 59 mg/dL (74-106); Magnesium 2.5 mg/dL (1.6-2.4); Phosphorus 3.9 mg/dL (2.5-4.9); Protein, Total 6.4 g/dL (6.4-8.2); Sodium Level 143 mEq/L (136-145)
[2024-04-02 07:39] LABS: PT Prothrombin Time 20.1 SECONDS (9.4-12.5); Protime INR 1.83
[2024-04-02] MEDS: BUMETANIDE 1 MG/4 ML VIAL IV ONE (11:30)
--- NOTE | 2024-04-02 12:57 | P.PN ---
Subjective Date of Service: 04/02/24 Primary Care Provider: [facility] Chief Complaint: CHF with respiratory failure Subjective: Improving (more talkative, alert, creatinine finally trending downward. C/o slight rust stained coloration to sputum) <Marcella Grossman - Last Filed: 04/02/24 12:51> Date of Service: 04/02/24 <Jina Choudhury C - Last Filed: 04/02/24 13:28> Review of Systems 10-point ROS is otherwise unremarkable General: As per HPI Respiratory: Cough, Shortness of Breath, SOB with Excertion Cardiovascular: Orthopnea, Paroxysmal Noc. Dyspnea, Light Headedness Gastrointestinal: Nausea Musculoskeletal: As per HPI Neurological: Weakness <Marcella Grossman - Last Filed: 04/02/24 12:51> Physical Examination - Vital Signs Temperature: 98.4 F Blood Pressure: 151/77 Pulse: 54 Respirations: 20 Pulse Ox (%): 95 - Physical Exam General: Alert, In no apparent distress, Oriented x3 HEENT: Atraumatic, Normocephalic Neck: Supple Respiratory: Normal air movement Cardiovascular: Normal pulses, Regular rate/rhythm Capillary refill: <2 Seconds Gastrointestinal: Soft and benign Musculoskeletal: Other (right hand contracture, necrotic 3rd fingertip, amputations of many distal fingertips, bilateral lower extremities) Integumentary: Other (as noted above) Neurological: Normal speech, Normal tone, Normal reflexes 2+ Lymphatics: No axilla or inguinal lymphadenopathy External genitalia: Deferred Rectal: Deferred <Marcella Grossman - Last Filed: 04/02/24 12:51> Assessment And Plan - Plan CHF with respiratory failure BiPAP - weaned to NC, mild blood in sputum, will ask respiratory and humidify O2, respiratory status much improved 04/02/24 Strict I&O Daily weight Diuresis Eliquis 5 mg p.o. twice daily Record review for last echo (last [facility] interpretation summary: "Left ventricle: Left ventricle size is normal. Normal wall thickness. Septal motion is consistent with postoperative status. Hyperdynamic systolic function with a visually estimated EF of 65 to 70%. Unable to assess diastolic function due to mitral valve surgery. Mitral valve: Bioprosthetic valve. MV mean gradient is 6.8 mmHg at 69 bpm. Peak E velocity is 1.9 m/s. DVI is 2.95. Aortic valve: Bioprosthetic valve. Mild paravalvular leak. DVI: 0.26. Normal is greater than 0.25. AV mean gradient is 30 mmHg. AV peak velocity is 360 cm/s. Tricuspid valve: Insufficient tricuspid regurgitation jet to estimate RVSP. RA pressure is 5-10 mmHg") Hypertension Monitor and trend Continue home medications Hyperlipidemia Lipids in a.m. Continue home medications KINSEY monitor and trend Consult Dr. Fleming 2nd to increasing creatinine (2.13 to 2.62), 04/02/24 creatinine and BUN now trending down previous record baseline creatinine around 1.5 renal ultrasound - negative for acute findings Diabetes Glucose monitoring 18 units 70/30 subcu twice daily AC Hypoglycemic in the 50s this am. Juice given. Maintain nutrition and calories Necrotic right third distal fingertip Consult Dr. Major - allow to auto amputate, dry dressing 04/01/24 Right upper arm edema, US performed, negative for DVT GI/VTE prophylaxis Protonix/Eliquis Discharge Plan: Home Plan to discharge in: 24 Hours <Marcella Grossman - Last Filed: 04/02/24 12:51> - Plan Pt seen and examined. I agree with the note by the INTEGRITY MANAGER. Continue to diurese with bumex.. Pt is fluid overloaded. Fluid balance is -1500cc since admission. He had preserved EF ( 65 - 70%) on Echo. Consulted Gen surgeon for the necrotic right 2nd and 5th fingers. The necrotic finger will likely fall off. He does not want any surgical intervention. Continue home meds for other chronic medical problems. <Jina Choudhury - Last Filed: 04/02/24 13:28>
--- NOTE | 2024-04-02 15:03 | P.CNS ---
Date of Consult: 04/02/24 PC: I was asked to see this patient in regards to dry gangrene of his second and third fingers on his right hand. HPC: Patient apparently had surgery recently, was given heparin, to which she had adverse reaction. And up losing the tips of his second and third fingers on his left hand. Now has a similar phenomenon on his right. PSHx: Recent open heart surgery PMHx: Reviewed Social Hx: Allergic to heparin Sys R: Says he is otherwise in pretty good shape O/E: Awake alert vital signs are stable HEENT: Nonicteric Chest: Chest movement equal bilaterally Abd: Soft nontender [place]: Bilateral BKA's, tips of second and third fingers partially amputated, also has contracture on his left hand. Right hand shows second and third finger again with gangrene, has a good sharp line of demarcation. Data: NAD Impression: Dry gangrene of the second and third finger Plan: This patient has dry gangrene of her second and third finger. As soon as I introduced myself to the patient his, it was just let him fall off. He has been through this with the same scenario on his left second and third finger. On inspection and examination of his hand I agree that autoamputation will probably best. Sometimes as I explained to him the bone will hang and it does necessitate surgical intervention to get the last piece off. We will however let this truly demarcate until that time comes. He understands and is content with that.
--- NOTE | 2024-04-02 15:34 | PN ---
Date of Progress Note: 04/02/2024 Subjective: Patient was admitted to the hospital with acute kidney injury secondary to cardiorenal. Workup had been negative for serology. The patient was started on diuresis, responding very well. Objective: Vital Signs: Blood pressure 151/77, pulse of 54, afebrile. Chest: Crackles, bilateral. Heart: S1, S2. Regular. Systolic murmur. Abdomen: Soft, nontender. Extremity: Trace edema. Bilateral below-knee amputation. Laboratory Data: Hemoglobin 9.8, sodium 143, potassium 4, bicarb 26, BUN 29, creatinine 2.7, started trending down. Calcium 8.2, phosphorus 3.9, magnesium 2.5, PTH 158. PC ratio is 3.6. Current Medications: The patient on, it includes amlodipine, atorvastatin, carvedilol 12.5, hydralazine 25 b.i.d., IV iron, Eliquis, aspirin, Bumex 1 mg, pantoprazole. Assessment And Plan: 1. Acute kidney injury secondary to cardiorenal. Continue to respond. I am going to continue diurese the patient and we will monitor. 2. Continues to be over volume I will give the patient extra dose of Bumex today and we will follow up. 3. Hypertension, controlled, optimal. Continue to utilize blood pressure for more diuresis. 4. Congestive heart failure with exacerbation. As above. 5. Hyponatremia, dilutional. Continue diuresis. 6. Secondary hyperparathyroidism. No need for calcitriol. 7. Iron-deficiency anemia. Continue IV iron. Time spent examining the patient [id number] reviewing data lab and the radiology placing orders discussing the case with the patient discussing the case with the steam blocker including hospitalist and nursing staff more than 55 minutes GUIDO Voice ID: [id number] Report ID: [id number] PHIL
[2024-04-03 05:10] LABS: Absolute Eosinophils 0.4 K/uL (0-0.5); Absolute Lymphocytes (CBC) 0.9 K/uL (0.7-4.9); Absolute Monocytes 0.7 K/uL (0.1-1.3); Absolute Neutrophil 5.7 K/uL (1.8-8.0); Basophils % 0.4 % (0-1.3); Eosinophils % 4.6 % (0-4.4); Hematocrit 30.6 % (39.6-49.0); Hemoglobin 9.9 g/dL (13.6-17.9); Lymphocytes % 12.3 % (15.3-44.8); MCH 25.9 pg (27.0-35.0); MCHC 32.3 g/dL (32.0-36.0); MCV 80.3 fL (80-100); MPV 8.9 fL (7.6-11.3); Monocytes % 8.6 % (3.3-12.3); Neutrophils % 74.1 % (41.7-73.7); Nucleated Red Blood Cells % 0.1 % (0-0); Platelets 162 thou/uL (152-406); RBC Red Blood Cell Count 3.81 M/uL (4.33-5.43); Red Cell Distribution Width 18.2 % (12.1-15.2)
[2024-04-03 05:35] LABS: ALT/SGPT 17 U/L (16-61); Albumin 2.8 g/dL (3.4-5.0); Albumin/Globulin Ratio 0.8 (1.1-1.8); Alkaline Phosphatase 63 U/L (45-117); Anion Gap 7.2 mEq/L (5.0-15.0); BUN Blood Urea Nitrogen 52 mg/dL (7-18); Bicarbonate 27 mEq/L (21-32); Bilirubin Total 0.4 mg/dL (0.2-1.0); Globulin 3.6 g/dL (2.3-3.5); Glomerular Filtration Rate 27 ml/min (=/>90); Glucose Level 160 mg/dL (74-106); Magnesium 2.4 mg/dL (1.6-2.4); Phosphorus 3.3 mg/dL (2.5-4.9); Potassium 4.2 mEq/L (3.5-5.1); Protein, Total 6.4 g/dL (6.4-8.2); Sodium Level 142 mEq/L (136-145)
[2024-04-03 05:36] LABS: AST/SGOT < 10 U/L (15-37)
--- NOTE | 2024-04-03 10:18 | P.PN ---
Subjective Date of Service: 04/03/24 Primary Care Provider: [facility] Chief Complaint: CHF with respiratory failure Subjective: Improving (Mr. Felton looks so much better. States he is feeling better. Sitting up with humidified O2 via N/C, eating breakfast.) <Apurva Grossmanluisito Ta - Last Filed: 04/03/24 10:07> Date of Service: 04/03/24 <Jina Choudhury - Last Filed: 04/03/24 10:40> Review of Systems 10-point ROS is otherwise unremarkable <GrossmanMarcella Ta - Last Filed: 04/03/24 10:07> Physical Examination - Vital Signs Temperature: 98.1 F Blood Pressure: 163/72 Pulse: 59 Respirations: 18 Pulse Ox (%): 90 - Physical Exam General: Alert, In no apparent distress, Oriented x3 HEENT: Atraumatic, Normocephalic Neck: Supple Respiratory: Normal air movement Cardiovascular: No edema, Regular rate/rhythm, Normal S1 S2 Capillary refill: <2 Seconds Gastrointestinal: Normal bowel sounds Musculoskeletal: Other (Bilateral below the knee amputations, some autoamputatio ns of the left fingertips, necrotic fingertips of the second and third digit of the right handplan for autoamputation.) Integumentary: No rashes Neurological: Normal speech, Normal tone, Normal affect Lymphatics: No axilla or inguinal lymphadenopathy External genitalia: Deferred Rectal: Deferred <Apurva Grossmanluisito Ta - Last Filed: 04/03/24 10:07> Assessment And Plan - Plan CHF with respiratory failure BiPAP - weaned to NC, mild blood in sputum, will ask respiratory and humidify O2, respiratory status much improved 04/02/24, 8/2 looks a lot better, no further nasal bleeding, decreased to 4L, will continue to wean Strict I&O Daily weight Diuresis -if nephrology agreeable will change to p.o. Bumex Eliquis 5 mg p.o. twice daily Record review for last echo (last [facility] interpretation summary: "Left ventricle: Left ventricle size is normal. Normal wall thickness. Septal motion is consistent with postoperative status. Hyperdynamic systolic function with a visually estimated EF of 65 to 70%. Unable to assess diastolic function due to mitral valve surgery. Mitral valve: Bioprosthetic valve. MV mean gradient is 6.8 mmHg at 69 bpm. Peak E velocity is 1.9 m/s. DVI is 2.95. Aortic valve: Bioprosthetic valve. Mild paravalvular leak. DVI: 0.26. Normal is greater than 0.25. AV mean gradient is 30 mmHg. AV peak velocity is 360 cm/s. Tricuspid valve: Insufficient tricuspid regurgitation jet to estimate RVSP. RA pressure is 5-10 mmHg") Hypertension Monitor and trend Continue home medications Hyperlipidemia Lipids in a.m. 8 triglycerides 68, cholesterol 79, LDL 30, HDL 35 Continue home medications K[facility]SE[facility] monitor and trend Consult Dr. Fleming 2nd to increasing creatinine (2.13 to 2.62), 04/02/24 creatinine and BUN now trending down previous record baseline creatinine around 1.5 renal ultrasound - negative for acute findings 04/25 Creatinine trending down from as high as 2.86 to 2.61 Diabetes Glucose monitoring 18 units 70/30 subcu twice daily AC Hypoglycemic in the 50s this am. Juice given. Glucose recovered, fingerstick this a.m. 125 mg/dL Maintain nutrition and calories Necrotic right third distal fingertip Consult Dr. Major - allow to auto amputate, dry dressing 04/01/24 Right upper arm edema, US performed, negative for DVT GI/VTE prophylaxis Protonix/Eliquis <Marcella Grossman - Last Filed: 04/03/24 10:07> - Plan Pt seen and examined. I agree with the note by the CUT FILER. Pt is feeling better. Will wean the oxygen as tolerated. Cr is 2.61. He is diuresing well. Continue home meds for other chronic medical problems. <Jina Choudhury - Last Filed: 04/03/24 10:40>
--- NOTE | 2024-04-04 01:12 | PN ---
Date of Progress Note: 04/03/2024 Subjective: The patient is admitted to the hospital because of cardiorenal syndrome, congestive hear t failure exacerbation, and acute kidney injury. The patient was started on diuretic for acute kidne y injury with cardiorenal syndrome. He was found to have elevated PTH, creatinine level was 2.7, BUN 29, calcium 8.2, phosphorus 3.9, hemoglobin 8.9. Review of Systems: Denies chest pain, palpitation. Physical Examination: Lungs: Clear to auscultation bilaterally. Heart: S1, S2. Abdomen: Soft. Extremities: Edema present. Assessment And Plan: 1.Acute kidney injury secondary to cardiorenal syndrome. Continue diuretics. Monitor intake and ou tput and urine output. The patient will continue Bumex, diuretic dose was adjusted. 2.Hypertension, controlled. Continue current treatment. 3.Congestive heart failure with exacerbation, acute on chronic diastolic dysfunction associated with cardiorenal syndrome. 4.Hyponatremia. Continue Lasix or Bumex. Avoid HCTZ. 5.Secondary hyperparathyroidism. Calcitriol on hold. Monitor phosphorus level. 6.Iron-deficiency anemia. The patient is on IV iron. EB/MODL Voice ID: [id number] Report ID: [id number]
[2024-04-04 04:34] LABS: Absolute Basophils 0.1 K/uL (0-0.5); Absolute Eosinophils 0.5 K/uL (0-0.5); Absolute Lymphocytes (CBC) 0.7 K/uL (0.7-4.9); Absolute Monocytes 0.7 K/uL (0.1-1.3); Absolute Neutrophil 5.8 K/uL (1.8-8.0); Basophils % 0.7 % (0-1.3); Eosinophils % 6.6 % (0-4.4); Hematocrit 30.6 % (39.6-49.0); Hemoglobin 9.9 g/dL (13.6-17.9); Lymphocytes % 8.9 % (15.3-44.8); MCH 25.9 pg (27.0-35.0); MCHC 32.3 g/dL (32.0-36.0); MCV 80.1 fL (80-100); MPV 9.2 fL (7.6-11.3); Monocytes % 8.6 % (3.3-12.3); Neutrophils % 75.2 % (41.7-73.7); Nucleated Red Blood Cells % 0.1 % (0-0); Platelets 150 thou/uL (152-406); RBC Red Blood Cell Count 3.82 M/uL (4.33-5.43); Red Cell Distribution Width 17.6 % (12.1-15.2)
[2024-04-04 04:53] LABS: AST/SGOT 11 U/L (15-37); Albumin 2.8 g/dL (3.4-5.0); Albumin/Globulin Ratio 0.8 (1.1-1.8); Alkaline Phosphatase 62 U/L (45-117); Anion Gap 9.1 mEq/L (5.0-15.0); BUN Blood Urea Nitrogen 46 mg/dL (7-18); Bicarbonate 26 mEq/L (21-32); Bilirubin Total 0.6 mg/dL (0.2-1.0); Globulin 3.6 g/dL (2.3-3.5); Glomerular Filtration Rate 31 ml/min (=/>90); Glucose Level 114 mg/dL (74-106); Magnesium 2.3 mg/dL (1.6-2.4); Phosphorus 2.8 mg/dL (2.5-4.9); Potassium 4.1 mEq/L (3.5-5.1); Protein, Total 6.4 g/dL (6.4-8.2); Sodium Level 143 mEq/L (136-145)
[2024-04-04 05:38] LABS: ALT/SGPT < 14 U/L (16-61)
--- NOTE | 2024-04-04 11:13 | P.PN ---
Subjective Date of Service: 04/04/24 Primary Care Provider: [facility] Chief Complaint: CHF with respiratory failure Subjective: Improving (Feeling good today. Qualifies for home O2. Will place orders. Will dc to home when cleared by nephrology) <Marcella Grossman - Last Filed: 04/04/24 11:08> Date of Service: 04/04/24 <Amauri Choudhuryvonsara Cavazos - Last Filed: 04/04/24 14:47> Review of Systems 10-point ROS is otherwise unremarkable Other: feeling much better. Frequent urination with diuresis. Receiving iron infusions <Marcella Grossman - Last Filed: 04/04/24 11:08> Physical Examination - Vital Signs Temperature: 98.3 F Blood Pressure: 158/72 Pulse: 56 Respirations: 18 Pulse Ox (%): 94 - Physical Exam General: Alert, In no apparent distress, Oriented x3 HEENT: Atraumatic, Normocephalic Neck: Supple Respiratory: Expiratory wheezes, Other (s/p neb tx) Cardiovascular: No edema, Regular rate/rhythm, Normal S1 S2 Capillary refill: <2 Seconds Gastrointestinal: Soft and benign Musculoskeletal: Other (Bilateral BKA, some loss of distal digits of hands bilaterally) Integumentary: No rashes Neurological: Normal speech, Normal tone Lymphatics: No axilla or inguinal lymphadenopathy External genitalia: Deferred Rectal: Deferred - Studies Microbiology Data (last 24 hrs): 03/30/24 02:45 Blood - Blood Aerobic Blood Culture - Final No growth in 5 days. 03/30/24 02:45 Blood - Blood Anaerobic Blood Culture - Final No growth in 5 days. 03/30/24 02:30 Blood - Blood Aerobic Blood Culture - Final No growth in 5 days. 03/30/24 02:30 Blood - Blood Anaerobic Blood Culture - Final No growth in 5 days. <Marcella Grossman - Last Filed: 04/04/24 11:08> - Studies Microbiology Data (last 24 hrs): 03/30/24 02:45 Blood - Blood Aerobic Blood Culture - Final No growth in 5 days. 03/30/24 02:45 Blood - Blood Anaerobic Blood Culture - Final No growth in 5 days. 03/30/24 02:30 Blood - Blood Aerobic Blood Culture - Final No growth in 5 days. 03/30/24 02:30 Blood - Blood Anaerobic Blood Culture - Final No growth in 5 days. <Jina Choudhury - Last Filed: 04/04/24 14:47> Assessment And Plan - Plan CHF with respiratory failure BiPAP - weaned to NC, mild blood in sputum, will ask respiratory and humidify O2, respiratory status much improved 04/02/24, 8 looks a lot better, no further nasal bleeding, decreased to 4L, will continue to wean, 04/04 pt qualifies for home O2. Will place orders. Strict I&O Daily weight Diuresis -if nephrology agreeable will change to p.o. Bumex Eliquis 5 mg p.o. twice daily Record review for last echo (last [facility] interpretation summary: "Left ventricle: Left ventricle size is normal. Normal wall thickness. Septal motion is consistent with postoperative status. Hyperdynamic systolic function with a visually estimated EF of 65 to 70%. Unable to assess diastolic function due to mitral valve surgery. Mitral valve: Bioprosthetic valve. MV mean gradient is 6.8 mmHg at 69 bpm. Peak E velocity is 1.9 m/s. DVI is 2.95. Aortic valve: Bioprosthetic valve. Mild paravalvular leak. DVI: 0.26. Normal is greater than 0.25. AV mean gradient is 30 mmHg. AV peak velocity is 360 cm/s. Tricuspid valve: Insufficient tricuspid regurgitation jet to estimate RVSP. RA pressure is 5-10 mmHg") Hypertension Monitor and trend Utilizing for increased diuresis Continue home medications Hyperlipidemia Lipids in a.m. 04/03 triglycerides 68, cholesterol 79, LDL 30, HDL 35 Continue home medications KINSE[facility] monitor and trend Consult Dr. Fleming 2nd to increasing creatinine (2.13 to 2.62), 04/02/24 creatinine and BUN now trending down previous record baseline creatinine around 1.5 renal ultrasound - negative for acute findings 04/03/24 Creatinine trending down from as high as 2.86 to 2.61 04/04/24 creatinine 2.3 Diabetes Glucose monitoring 18 units 70/30 subcu twice daily AC Hypoglycemic in the 50s this am. Juice given. Glucose recovered, fingerstick this a.m. 125 mg/dL Maintain nutrition and calories Necrotic right third distal fingertip Consult Dr. Major - allow to auto amputate, dry 04/01/24 Right upper arm edema, US performed, negative for DVT GI/VTE prophylaxis Protonix/Eliquis Discharge Plan: Home Plan to discharge in: 24 Hours <Marcella Grossman - Last Filed: 04/04/24 11:08> - Plan Pt seen and examined. I agree with the note by the SUPERVISING FIRE MARSHAL. Pt is feeling better. Will wean the oxygen as tolerated. Cr is 2.3<- 2.61. He is diuresing well. Fluid balance is - 4428cc. Continue home meds for other chronic medical problems. <Jina Choudhury - Last Filed: 04/04/24 14:47>
--- NOTE | 2024-04-04 17:24 | PN ---
Date of Progress Note: 04/04/2024 Subjective: The patient was admitted to the hospital with acute kidney injury secondary to cardiorenal syndrome. The patient had chronic kidney disease. Physical Examination: Vital Signs: When I saw the patient, blood pressure 158/72, pulse of 56, afebrile. Patient had good urine output of 2600, negative of 1700. Chest: Clear to auscultation. Heart: S1, S2. Systolic murmur. Abdomen: Soft, nontender. Extremities: Trace edema. Neurologic: Alert. No focality. Laboratory Data: Hemoglobin 9.9. Sodium 143, potassium 4.1, bicarb 26, BUN 46, creatinine trending down to 2.3, GFR of 31. Current Medications: Include aspirin, IV iron, Eliquis, amlodipine, carvedilol, hydralazine, Bumex 1 mg daily. Assessment And Plan: 1. Acute kidney injury secondary to cardiorenal, recovering. Continue current diuresis dose. 2. Hypertension, controlled, optimal. We will utilize blood pressure for more diuresis. 3. Congestive heart failure with exacerbation as above. 4. Hyponatremia, dilutional, recovered. 5. Secondary hyperparathyroid, stable. 6. Iron deficiency anemia. Continue IV iron. Time spent examining the patient [id number] reviewing data lab and the radiology placing orders discussing the case with the patient discussing the case with the human resources team member including hospitalist and nursing staff more than 55 minutes GUIDO Voice ID: [id number] Report ID: [id number] MTDD
[2024-04-05 05:33] LABS: Albumin 2.8 g/dL (3.4-5.0); Anion Gap 7.8 mEq/L (5.0-15.0); Phosphorus 2.5 mg/dL (2.5-4.9); Potassium 3.8 mEq/L (3.5-5.1)
[2024-04-05] MEDS: BUMETANIDE 1 MG TABLET PO SCH (08:45)
[2024-04-05] MEDS: POTASSIUM CL SA 10 MEQ TAB PO ONE (08:45)
--- NOTE | 2024-04-05 13:37 | P.DS ---
Admission Date: 03/30/24 Discharge Date: 04/05/24 Primary Care Provider: [facility] Reason for Admission: CHF with respiratory failure Consultations: Dr. Danya Major Procedures: none Brief History of Present Illness: Mr. 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 His PCP and online retailer, Dr. Moreland, are at [facility] He arrived at the emergency department this morning with an acute onset of shortness of breath. In the emergency department he was given 40mg of Lasix IV push, magnesium sulfate 2g IV piggyback, and placed on BiPAP. At present he is feeling better, vital signs stable at 118/73, 58, 24, 99% on BiPAP. He is having some pain in his lower extremities. Morphine 2 mg IV push given. Labs: Sodium 141, potassium 3.7, chloride 112, bicarb 22, BUN 34, creatinine 2.13 with a GFR of 34, LFTs unremarkable, white count 8.5, H/H 10.8/33.6 with platelets of 174, proBNP 4155, INR 1.7, TSH 3.75 Imaging: CXR from ED read per k (No report) Last ECHO at this facility 11/08/21 MILD MITRAL, AORTIC, AND TRICUSPID REGURGITATION. NORMAL LEFT VENTRICULAR SIZE AND FUNCTION. NO PERICARDIAL EFFUSION. TECHNOLOGIST: ISABELLA ESCOBAR Dictated By: Jose E Graves MD 11/08/21 1350 Hospital Course: Mr. Felton's CHF exacerbation was exacerbated by acute kidney injury. He does have a history of CKD however has never to his knowledge seen a hvac/r service technician. Dr. Hagan consulted for aggressive diuresis and treatment of electrolyte derangements, secondary hyperparathyroid, and iron deficiency. Mr. Felton looks and feels significantly better. He has been getting breathing treatments and using oxygen during this admission. He qualifies for home O2 and it has been delivered. At this time he is stable for discharge. All of his and his 's questions have been answered to the best my ability. They voiced und erstanding regarding plan of care and follow-up. <Marcella Grossman - Last Filed: 04/05/24 13:39> Admission Date: 03/30/24 Discharge Date: 04/05/24 Hospital Course: Pt seen and examined. I agree with the note by the DENTAL APPLIANCE REPAIRER. Pt is feeling better we diuresed him. He qualified for home oxygen. Ok to discharge pt. <Jina Choudhury Dirk - Last Filed: 04/05/24 21:59> Disposition: ROUTINE DISCHARGE Discharge Condition: GOOD Vital Signs/Physical Exam: Temp Pulse Resp BP Pulse Ox 99.2 F 58 14 157/71 H 93 04/05/24 08:00 04/05/24 08:46 04/05/24 08:00 04/05/24 08:46 04/05/24 08:00 Laboratory Data at Discharge: WBC 7.70 thou/uL (4.3-10.9) 04/04/24 04:18 Hgb 9.9 g/dL (13.6-17.9) L 04/04/24 04:18 Hct 30.6 % (39.6-49.0) L 04/04/24 04:18 Plt Count 150 thou/uL (152-406) L 04/04/24 04:18 PT 20.1 SECONDS (9.4-12.5) H 04/02/24 05:03 INR 1.83 04/02/24 05:03 Sodium 144 mEq/L (136-145) 04/05/24 04:24 Potassium 3.8 mEq/L (3.5-5.1) 04/05/24 04:24 BUN 37 mg/dL (7-18) H 04/05/24 04:24 Creatinine 1.93 mg/dL (0.70-1.30) H 04/05/24 04:24 Glucose 122 mg/dL (74-106) H 04/05/24 04:24 Phosphorus 2.5 mg/dL (2.5-4.9) 04/05/24 04:24 Magnesium 2.3 mg/dL (1.6-2.4) 04/04/24 04:18 Total Bilirubin 0.6 mg/dL (0.2-1.0) 04/04/24 04:18 AST 11 U/L (15-37) L 04/04/24 04:18 ALT < 14 U/L (16-61) L 04/04/24 04:18 Alkaline Phosphatase 62 U/L (45-117) 04/04/24 04:18 Triglycerides 68 mg/dL (<150) 03/31/24 04:28 Cholesterol 79 mg/dL (<200) 03/31/24 04:28 HDL Cholesterol 35 mg/dL (40-60) L 03/31/24 04:28 Cholesterol/HDL Ratio 2.26 03/31/24 04:28 <Grossman,Marcella Keyon - Last Filed: 04/05/24 13:39> Vital Signs/Physical Exam: Temp Pulse Resp BP Pulse Ox 99.0 F 57 17 149/67 H 90 L 04/05/24 12:00 04/05/24 12:00 04/05/24 12:00 04/05/24 12:00 04/05/24 12:00 Laboratory Data at Discharge: WBC 7.70 thou/uL (4.3-10.9) 04/04/24 04:18 Hgb 9.9 g/dL (13.6-17.9) L 04/04/24 04:18 Hct 30.6 % (39.6-49.0) L 04/04/24 04:18 Plt Count 150 thou/uL (152-406) L 04/04/24 04:18 PT 20.1 SECONDS (9.4-12.5) H 04/02/24 05:03 INR 1.83 04/02/24 05:03 Sodium 144 mEq/L (136-145) 04/05/24 04:24 Potassium 3.8 mEq/L (3.5-5.1) 04/05/24 04:24 BUN 37 mg/dL (7-18) H 04/05/24 04:24 Creatinine 1.93 mg/dL (0.70-1.30) H 04/05/24 04:24 Glucose 122 mg/dL (74-106) H 04/05/24 04:24 Phosphorus 2.5 mg/dL (2.5-4.9) 04/05/24 04:24 Magnesium 2.3 mg/dL (1.6-2.4) 04/04/24 04:18 Total Bilirubin 0.6 mg/dL (0.2-1.0) 04/04/24 04:18 AST 11 U/L (15-37) L 04/04/24 04:18 ALT < 14 U/L (16-61) L 04/04/24 04:18 Alkaline Phosphatase 62 U/L (45-117) 04/04/24 04:18 Triglycerides 68 mg/dL (<150) 03/31/24 04:28 Cholesterol 79 mg/dL (<200) 03/31/24 04:28 HDL Cholesterol 35 mg/dL (40-60) L 03/31/24 04:28 Cholesterol/HDL Ratio 2.26 03/31/24 04:28 <Jina Choudhury - Last Filed: 04/05/24 21:59> Diet: ADA Activity: Ad gretel <Marcella Grossman Keyon - Last Filed: 04/05/24 13:39> <Jina Choudhury - Last Filed: 04/05/24 21:59> Home Medications: Atorvastatin Calcium [Lipitor*] 40 mg PO DAILY 11/06/21 Amlodipine [Norvasc*] 10 mg PO DAILY 04/01/24 Apixaban [Eliquis] 5 mg PO DAILY 04/01/24 Aspirin Chewable [Aspirin Chewable*] 81 mg PO DAILY 04/01/24 Bumetanide [Bumex*] 1 mg PO BID 04/01/24 Carvedilol [Coreg] 12.5 mg PO BID 04/01/24 Hydralazine [Apresoline*] 25 mg PO BID PRN 04/01/24 Insulin NPH Hum/Reg Insulin Hm [Novolin 70-30 100 Unit/ml Vial] 15 units SQ DAILY AT SUPPER 04/01/24 Insulin NPH Hum/Reg Insulin Hm [Novolin 70-30 100 Unit/ml Vial] 20 units SQ DAILY WITH BREAKFAST 04/01/24 Ipratropium Neb [Atrovent*] 0.5 mg NEB [id number] #26 amp 04/05/24 Nebulizer 1 each MC Q6H PRN #1 ea 04/05/24 Salmeterol Xinafoate [Serevent Diskus] 50 mcg IH BID #1 unit 04/05/24 New Medications: Ipratropium Neb [Atrovent*] 0.5 mg NEB [id number] #26 amp Nebulizer 1 each MC Q6H PRN #1 ea PRN Reason: Shortness Of Breath Salmeterol Xinafoate [Serevent Diskus] 50 mcg IH BID #1 unit Physician Discharge Instructions: Mr. 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 His PCP and online retailer, Dr. Moreland, are at [facility] He arrived at the emergency department this morning with an acute onset of shortness of breath. In the emergency department he was given 40mg of Lasix IV push, magnesium sulfate 2g IV piggyback, and placed on BiPAP. At present he is feeling better, vital signs stable at 118/73, 58, 24, 99% on BiPAP. He is having some pain in his lower extremities. Morphine 2 mg IV push given. Mr. Felton was on intermittent BiPAP for several days and now is on O2 per nasal cannula with BiPAP at night. He is much more comfortable, breathing easier, able to lie flat, and generally feeling better and is more talkative. His hospital stay was complicated by CKD with KINSEY. Nephrology was consulted for help with management of his kidney function with concurrent diuresis. His creatinine seems to have peaked yesterday 04/01/2024 and is trending down this morning. 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 Last year this happened to his left hand and he is comfortable with probable autoamputation. Dr. Major was consulted and saw Mr. Felton regarding his wounds and they discussed plan of care. The patient and his agree and understand autoamputation. Mr. Felton's CHF exacerbation was exacerbated by acute kidney injury. He does have a history of CKD however has never to his knowledge seen a hvac/r service technician. Dr. Hagan consulted for aggressive diuresis and treatment of electrolyte derangements, secondary hyperparathyroid, and iron deficiency. Mr. Felton looks and feels significantly better. He has been getting breathing treatments and using oxygen during this admission. He qualifies for home O2 and it has been delivered. His anemic state probably exacerbated cardiorenal syndrome and he has been receiving Ferrlecit 250 mg IV iron infusions. At this time he is stable for discharge. All of his and his 's questions have been answered to the best my ability. They voiced understanding regarding plan of care and follow-up. New prescriptions: Neb treatments: Salmeterol, Atrovent Oxygen Continue home medicines as previously prescribed GOAL: Clear understanding of disease process Diet: ADA, low sodium Activity: Fall precautions INSTRUCTIONS: Physician Discharge Instructions: Okay to DC IV and DC home Follow-up with primary care provider in 1 to 2 weeks Follow-up with cardiology in 1 to 2-weeks Follow -up with Dr. Hagan in 1 to 2 weeks Please call the inpatient unit for any questions or concerns regarding hospital stay Return to the ER for worsening symptoms Followup: Chidi Hagan MD [ACTIVE - CAN ADMIT] - Savannah Amador NP [Primary Care Provider] -
--- NOTE | 2024-04-05 13:40 | PN ---
Date of Progress Note: 04/05/2024 Subjective: The patient was admitted to the hospital with acute kidney injury secondary to cardioren al. The patient being on diuresis is responding very well. Physical Examination: Vital Signs: Blood pressure 157/71, pulse of 56, afebrile. Chest: Faint rales on the base. Heart: S1, S2. Systolic murmur. Abdomen: Soft, nontender. Extremities: Trace edema. Neuro: Alert. No focality. Laboratory Data: Hemoglobin 9.9. Sodium 144, potassium 3.8, bicarb 27, BUN 37, creatinine down to 1 .9. GFR 39. Calcium 8.6. Phosphorus 2.5. Albumin 2.8. Corrected calcium is 9.4. Current Medications: The patient is on include: 1.Amlodipine. 2.Atorvastatin. 3.Carvedilol 12.5 b.i.d. 4.Hydralazine. 5.Bumex 1 mg daily. 6.Pantoprazole. Assessment And Plan: 1.Acute kidney injury secondary to cardiorenal. We will continue current diuresis. The patient sta rted to be normal volume. 2.Hypertension, controlled, optimal. 3.Congestive heart failure with exacerbation as by primary. 4.Diabetes as by primary. Patient is cleared from the renal standpoint for discharge planning. We will follow up. GUIDO Voice ID: [id number] Report ID: [id number]
[2024-04-05] MEDS: HYDRALAZINE HCL 25 MG TABLET PO SCH (13:50)
[2024-04-05 13:57] VITALS: BP 149/67; TEMP 99
[2024-04-05 16:38] VITALS: O2SAT 95
[2024-04-07 14:18] LABS: Abnormal Protein Band 1 REPORT; Alpha-1-Globulins 0.3 g/dL (0.2-0.3); Alpha-2-Globulins 0.8 g/dL (0.5-0.9); Beta 1 Globulin 0.4 g/dL (0.4-0.6); Gamma Globulins 1.1 g/dL (0.8-1.7); INTERPRETATION REPORT
[2024-04-07 20:14] LABS: Complement C3 156 mg/dL (82-185)
[2024-04-09 17:57] LABS: P-ANCA Anti-Myeloperoxidase Ab <1.0 AI (<1.0)
== END 2024-04-05 15:19 | disposition home or self-care (01) | DRG 291 ==
LOC: ER 00:28 → ERHOLD 06:49 → 2ND 16:27
PROVIDERS: ADMIT Hospitalist; ATTEND Hospitalist
PROC: 5A09557 Assistance with Respiratory Ventilation, Greater than 96 Consecutive Hours, Continuous Positive Airway Pressure (ICD-10-PCS; principal; 2024-03-30)
DX: I13.0 Hypertensive heart and chronic kidney disease with heart failure and stage 1 through stage 4 chronic kidney disease, or unspecified chronic kidney disease (principal); I50.33 Acute on chronic diastolic (congestive) heart failure; J96.91 Respiratory failure, unspecified with hypoxia; E11.52 Type 2 diabetes mellitus with diabetic peripheral angiopathy with gangrene; N17.9 Acute kidney failure, unspecified; N25.81 Secondary hyperparathyroidism of renal origin; E87.1 Hypo-osmolality and hyponatremia; N18.9 Chronic kidney disease, unspecified; E11.22 Type 2 diabetes mellitus with diabetic chronic kidney disease; E11.40 Type 2 diabetes mellitus with diabetic neuropathy, unspecified; D63.1 Anemia in chronic kidney disease; D63.8 Anemia in other chronic diseases classified elsewhere; D50.9 Iron deficiency anemia, unspecified; E78.5 Hyperlipidemia, unspecified; E87.6 Hypokalemia; I25.10 Atherosclerotic heart disease of native coronary artery without angina pectoris; Z95.2 Presence of prosthetic heart valve; Z95.1 Presence of aortocoronary bypass graft; Z90.49 Acquired absence of other specified parts of digestive tract; Z79.899 Other long term (current) drug therapy; Z87.891 Personal history of nicotine dependence; Z89.512 Acquired absence of left leg below knee; Z89.021 Acquired absence of right finger(s); Z89.511 Acquired absence of right leg below knee
CPT/HCPCS: 36415; 71045; 76770; 80048; 80053; 80061; 80069; 80076; 80307; 82077; 82550; 82570; 82607; 82728; 82947; 83540; 83735; 83880; 83970; 84100; 84156; 84165; 84439; 84443; 84466; 84484; 85025; 85044; 85610; 86021; 86160; 86430; 86803; 87040; 93005; 93971; 94010; 94640; 94660; 94760; 99285; J1815; J1940; J2270; J2470; J2916; J3475; J7050; J7605; J7644